=== PATIENT | male | born 1980 | race Caucasian/White ===

== ENCOUNTER → 2017-11-22 07:01 | Outpatient (CLI) | payer BC, SELFPAY ==
--- NOTE | 2017-11-22 10:28 | NEURO_ITS ---
NCS and/or EMG Patient Report Ordering Doctor: Virgilio Cardona DATE OF SERVICE: 11/22/17 This is a bilateral upper extremity nerve conduction study performed on this 37- year-old male with a one-year history of abnormal sensations in both of his hands symmetrically. Patient denies neck pain and is healthy otherwise. Lateral upper extremity sensory and motor nerve conduction study is performed. Median motor distal latencies are prolonged mild to moderately bilaterally with intact amplitudes and conduction velocities. The median sensory distal latencies are also mildly prolonged. The ulnar motor and sensory and radial sensory responses are normal. The median F-wave latencies are mildly prolonged compared to the ulnar F wave latencies. Impression this is an abnormal nerve conduction study of the upper extremities consistent with carpal tunnel syndrome bilaterally, moderate.
== END ==
LOC: PSN 07:04
PROVIDERS: Visit Provider Orthopaedic Surgery
DX: M79.641 Pain in right hand (principal); M79.642 Pain in left hand; R20.8 Other disturbances of skin sensation
CPT/HCPCS: 95911

== ENCOUNTER 2020-11-30 20:15 | Inpatient (IN) | payer SELFPAY ==
[2020-11-30 20:16] VITALS: BP 187/80; PULSE 126; RESP 20; TEMP 36.8; O2SAT 96; BMI 22.9
[2020-11-30] MEDS: diazePAM 5 MG Tablet PO (21:11)
[2020-11-30] MEDS: Ketorolac 60 MG/2 ML Vial IM (21:16)
[2020-11-30 21:24] VITALS: BP 162/107; PULSE 103; RESP 20; TEMP 37.1; O2SAT 98
[2020-11-30 21:25] LABS: Absolute Lymphocyte Count 3.81 X10^3/uL (0.83-4.51); Absolute Neutrophil Count 13.5 X10^3/uL (2.0-7.7); Basophil# 0.06 X10^3/uL; Basophil% 0.3 % (0-1); Eosinophil# 0.01 X10^3/uL; Eosinophils% 0.1 % (0-5); Hematocrit 54.9 % (40-54); Lymphocyte # 3.81 X10^3/ul (0.83-4.51); Mean Corp Hgb Conc 33.5 g/dL (32-36); Mean Corpuscular Hgb 29.7 pg (27.0-32.0); Mean Corpuscular Volume 88.5 fL (80-94); Mean Platelet Vol. 8.5 fl (6.2-12.0); Monocyte# 1.58 X10^3/uL; Monocyte% 8.3 % (0-10); NRBC Flagged by Analyzer 0 % (0-5); Neutrophil # 13.49 X10^3/uL (2.7-7.7); Neutrophil % 70.7 % (47-70); POSITIVE DIFFERENTIAL YES; Platelet Count 568 K/mm3 (150-450); RBC Distribution Width CV 15.5 % (11.6-14.6); RBC Distribution Width SD 49.6 fl (35.1-43.9); White Blood Count 19.1 K/mm3 (4.4-11.0)
[2020-11-30 21:35] LABS: Differential Indicated SCAN CRITERIA MET
[2020-11-30 21:38] LABS: Hemoglobin 18.4 g/dL (13.0-16.5)
[2020-11-30 21:50] LABS: Amphetamine Urine VISTA NEGATIVE (<1000 ng/mL); Barbiturate Urine VISTA NEGATIVE (< 200 ng/mL); Benzodiazepine Urine VISTA NEGATIVE (< 200 ng/mL); Cocaine Urine VISTA NEGATIVE (< 300 ng/mL); Ecstacy Urine VISTA NEGATIVE (< 500 ng/mL); Methadone Urine VISTA NEGATIVE (< 300 ng/mL); PCP Urine VISTA NEGATIVE (< 25 ng/mL); THC Urine VISTA POSITIVE (< 50 ng/mL); Vista UDS pH Range 5
[2020-11-30 21:59] LABS: Differential Comment SCANNED
[2020-11-30 22:02] LABS: International Normalized Ratio 0.9; Prothrombin Time (Protime)PT. 11.6 SECONDS (11.7-14.9)
[2020-11-30 22:19] LABS: AST(SGOT) 19 U/L (15-37); Alanine Aminotransfer ALT/SGPT 49 U/L (16-61); Albumin, Serum 4.2 g/dL (3.2-5.0); Alkaline Phosphatase 111 U/L (45-117); Anion Gap 12 (5-15); BUN 17 mg/dL (7-18); BUN/Creat Ratio 21.4 RATIO (10-20); Calcium,Total 9.3 mg/dL (8.5-10.1); Chloride 104 mmol/L (98-107); EST Glomerular Filtration Rate 115 mL/min (>60); Est Glom Filt Rate - Afr Amer 139 mL/min (>60); Estimated Creatinine Clearance 127.26 ml/min; Globulin 4.2 g/dL (2.2-4.2); Glucose 128 mg/dL (74-106); Potassium 3.5 mmol/L (3.5-5.1); Protein, Total 8.4 g/dL (6.4-8.2); Sodium Level 141 mmol/L (136-145)
[2020-11-30] MEDS: Ondansetron ODT 4 MG Tablet PO (22:28)
--- NOTE | 2020-11-30 22:29 | EDS_ITS ---
HPI History of Present Illness Chief Complaint: Substance Abuse Informant: patient Narrative Narrative: 40-year-old male presents the emergency room asking for detox from alcohol. Patient states that he drinks at least 22 shots of fireball per day. He states that he has been drinking for years due to his sciatica. [facility] Reportedly he was at [facility] recently where they did an MRI but he left the hospital without any paperwork. Mom states it was because he was high on Ativan. Patient states that he wants to quit drinking because it is not good for him. He also would like to have his sciatica addressed while he is in the hospital. He denies any fevers. He notes nausea and some vomiting. Last reported drink was this morning [facility] Medical History (Updated 11/30/20 @ 22:[address] Pio Huff DO) Sciatica Home Medications NK 11/30/20 [History Last Taken Unknown] Allergy/AdvReac Type Severity Reaction Status Date / Time No Known Allergies Allergy Verified 11/30/20 20:18 Social History (Updated 11/30/20 @ 22:[address] Pio Huff DO) Smoking Status: Current every day smoker tobacco type: cigarettes substance use type: does not use ROS ROS ED Constitutional Constitutional ED: Denies chills or weight loss Eyes Eyes: Denies change in vision or diplopia ENT ENT ED: Denies ear pain, rhinorrhea or sore throat Cardiovascular Cardiovascular: Denies chest pain, orthopnea, palpitations or racing heartbeat Respiratory/Chest Respiratory/Chest: Denies cough, dyspnea or orthopnea Gastrointestinal Gastrointestinal: Reports nausea and vomiting; Denies abdominal pain or diarrhea Genitourinary Genitourinary ED: Denies dysuria, hematuria or urinary frequency Musculoskeletal Musculoskeletal: Reports back pain and other Details: Right leg pain ; Denies arthralgias or myalgias Integumentary Denies abscess or rash Neurologic Neurologic: Denies headache(s) or weakness Psychiatric Psychiatric: Denies anxiety, depression, suicidal ideation or suicidal thoughts Endocrine Endocrinology: Denies polydipsia, polyphagia or polyuria Allergic/Immunologic Allergic/Immunologic ED: Denies mouth swelling, tongue swelling or urticaria EXAM Physical Exam Narrative Exam Narrative: Patient states that he is in pain he is rocking back and forth holding his right lower leg at times he will bring the leg up over his left leg almost into a piriformis stretch. Const Vital Signs: 11/30/20 20:16 11/30/20 21:24 Temperature 98.3 F 98.8 F Temperature Source Temporal Temporal Pulse Rate 126 H 103 H Respiratory Rate 20 H 20 H Blood Pressure 187/80 H 162/107 H Blood Pressure Mean 115 125 Blood Pressure Source Monitor Blood Pressure Position Sitting Blood Pressure Location Right Arm Pulse Ox 96 98 Oxygen Delivery Method Room Air Room Air Positive well nourished and well developed General Appearance ED: well developed HEENT Reports normocephalic, head/scalp atraumatic and moist mucous membranes Eyes PERRL and EOMs intact bilaterally Neck no lymphadenopathy, supple and no JVD Resp normal respiratory effort and clear to auscultation bilaterally Cardio regular rate and no murmurs Rate: tachycardic GI normal to inspection, nondistended, normoactive bowel sounds and non-tender Palpation: soft Back/Spine no CVA tenderness and normal ROM Extremity normal to inspection General Extremety ED: Negative for edema General Extremity: Negative for edema Neuro oriented x3 and CN's II-XII intact bilaterally Sensorium / Orientation: alert Motor Exam: strength 5/5 throughout Psych Attitude: agitated Mood & Affect: Negative for depressed or tearful Skin no rashes or lesions noted and no wounds MDM MDM MDM Narrative Medical decision making narrative: Patient's blood alcohol level is 241. White count elevated at 19 but he does not seem to have any infectious symptoms so probably due to withdrawal and reviewed his pain. Patient received a dose of Toradol and Valium. He is also had vomiting so I gave him some Zofran. He is agreeable to the rules of the program. I will speak with her hospitalist. Lab Data Attestation: I reviewed the patient's lab results. Labs: Laboratory Results - last 24 hr 11/30/20 11/30/20 11/30/20 21:17 21:17 21:17 WBC 19.1 H RBC 6.20 Hgb 18.4 H* Hct 54.9 H MCV 88.5 MCH 29.7 MCHC 33.5 RDW Std Deviation 49.6 H RDW Coeff of Mehran 15.5 H Plt Count 568 H MPV 8.5 Immature Gran % (Auto) 0.600 Neut % (Auto) 70.7 H Lymph % (Auto) 20.0 Anderson % (Auto) 8.3 Eos % (Auto) 0.1 Baso % (Auto) 0.3 Absolute Neuts (auto) 13.5 H Absolute Lymphs (auto) 3.81 Nucleated RBC % 0 Differential Comment SCANNED Diff Path Review May foll PT 11.6 L INR 0.9 Sodium 141 Potassium 3.5 Chloride 104 Carbon Dioxide 25.0 Anion Gap 12 BUN 17 Creatinine 0.80 Estim Creat Clear Calc 127.26 Est GFR (MDRD) Af Amer 139 Est GFR (MDRD) Non-Af 115 BUN/Creatinine Ratio 21.4 H Glucose 128 H Calcium 9.3 Total Bilirubin 0.40 AST 19 ALT 49 Alkaline Phosphatase 111 Total Protein 8.4 H Albumin 4.2 Globulin 4.2 Albumin/Globulin Ratio 1.0 Urine Opiates Screen Urine Methadone Screen Ur Barbiturates Screen Ur Phencyclidine Scrn Ur Amphetamines Screen U Methamphetamin-MDMA U Benzodiazepines Scrn Urine Cocaine Screen U Cannabinoids Screen Ur Drug Screen Comment Ethyl Alcohol 11/30/20 11/30/20 21:17 21:17 WBC RBC Hgb Hct MCV MCH MCHC RDW Std Deviation RDW Coeff of Mehran Plt Count MPV Immature Gran % (Auto) Neut % (Auto) Lymph % (Auto) [place] % (Auto) Eos % (Auto) Baso % (Auto) Absolute Neuts (auto) Absolute Lymphs (auto) Nucleated RBC % Differential Comment Diff Path Review PT INR Sodium Potassium Chloride Carbon Dioxide Anion Gap BUN Creatinine Estim Creat Clear Calc Est GFR (MDRD) Af Amer Est GFR (MDRD) Non-Af BUN/Creatinine Ratio Glucose Calcium Total Bilirubin AST ALT Alkaline Phosphatase Total Protein Albumin Globulin Albumin/Globulin Ratio Urine Opiates Screen POSITIVE H Urine Methadone Screen NEGATIVE Ur Barbiturates Screen NEGATIVE Ur Phencyclidine Scrn NEGATIVE Ur Amphetamines Screen NEGATIVE U Methamphetamin-MDMA NEGATIVE U Benzodiazepines Scrn NEGATIVE Urine Cocaine Screen NEGATIVE U Cannabinoids Screen POSITIVE H Ur Drug Screen Comment Ethyl Alcohol 241.0 Discharge Plan Dx/Rx/DC Orders Clinical Impression: Alcohol withdrawal, Sciatica Disposition Disposition: Acute Care Hospital [facility]
--- NOTE | 2020-11-30 22:51 | PCM.HP.STD ---
HPI - General General Date of Admission: 11/30/20 HPI Narrative KERA EASON, is a 40 M who is brought to ER for acute alcohol withdrawal symptoms. Patient is having tremors. He also vomited large amount in ER. Patient drinks 22 shots of fireball, whiskey every single day. Patient also takes hydrocodone 4 tablets daily for sciatica pain. He has chronic lumbar back pain with radiation to right lower extremity to fifth toe. No fever or chills. He was recently at [facility]. They did an MRI but he left the hospital without paperwork. Patient has been drinking heavily since teenage. Denies seizure, hallucinations or delusion. [facility] Medical History Alcohol abuse Anxiety Chronic pain Depression Hypertension Sciatica Smoker Substance abuse Home Medications NK 11/30/20 [History Last Taken Unknown] Allergy/AdvReac Type Severity Reaction Status Date / Time No Known Allergies Allergy Verified 11/30/20 20:18 Social History Smoking Status: Current every day smoker tobacco type: cigarettes substance use type: does not use ROS ROS Narrative Constitutional: Complain of back pain. HEENT: Reports systems reviewed and no addt'l complaints, except as documented Respiratory/Chest: Denies chest pain, shortness of breath at rest or with exertion Gastrointestinal: Vomiting nonbilious in nature. Denies coffee ground emesis, hematemesis or melena Genitourinary: Denies burning urination or new urinary tract symptoms Musculoskeletal: Back pain with radiation to RLE. Reports joint pain at lumbar spine and limited range of motion Neurologic: Denies seizure-like activity skin: No ulcer. No rash Endocrinology: Reports systems reviewed and no addt'l complaints, except as documented Hematologic/Lymphatic: Reports systems reviewed and no addt'l complaints, except as documented Rest 12 ROS are negative except as mentioned in HPI Vital Signs Vital Signs Vital Signs: 11/30/20 20:16 11/30/20 21:24 Temperature 98.3 F 98.8 F Temperature Source Temporal Temporal Pulse Rate 126 H 103 H Respiratory Rate 20 H 20 H Blood Pressure 187/80 H 162/107 H Blood Pressure Mean 115 125 Blood Pressure Source Monitor Blood Pressure Position Sitting Blood Pressure Location Right Arm Pulse Ox 96 98 Oxygen Delivery Method Room Air Room Air Weight Weight: 160 lb Body Mass Index (BMI) 22.9 Physical Exam Narrative General: Restless, oriented. Tremors. Irritable HEENT: Atraumatic, PERRLA, EOMI, Normocephalic Oral: No Gingival or Mucosal Lesions/ Ulcerations Neck: Supple, No JVD, Negative Carotid Bruits Lungs: Air entry equal in bilateral lung bases. No crepitation/rhonchi Cardiovascular: Regular rate, Regular Rhythm, Normal S1, Normal S2, No murmurs Abdomen: Bowel Sounds Present, Soft, Non Tender, Non-Distended : No renal angle tenderness. No suprapubic tenderness. Extremities/spine: Tenderness present over right paralumbar area. No edema, Capillary Refill Less than 3 Seconds Skin: No rashes, No breakdown Musculoskeletal: No Tenderness to Palpation of Joints or Extremities Neurological: Cranial nerves II-XII grossly intact, DTR 2+/4 and Symmetrical, Neuro grossly intact Psych/Mental Status: Normal Affect, Appropriate. Results Lab / Micro Data Result Diagrams: 11/30/20 21:17 11/30/20 21:17 Labs: Laboratory Results - last 24 hr 11/30/20 21:17: WBC 19.1 H, RBC 6.20, Hgb 18.4 H*, Hct 54.9 H, MCV 88.5, MCH 29.7, MCHC 33.5, RDW Std Deviation 49.6 H, RDW Coeff of Mehran 15.5 H, Plt Count 568 H, MPV 8.5, Immature Gran % (Auto) 0.600, Neut % (Auto) 70.7 H, Lymph % (Auto) 20.0, [place] % (Auto) 8.3, Eos % (Auto) 0.1, Baso % (Auto) 0.3, Absolute Neuts (auto) 13.5 H, Absolute Lymphs (auto) 3.81, Nucleated RBC % 0, Differential Comment SCANNED, Diff Path Review August foll 11/30/20 21:17: PT 11.6 L, INR 0.9 11/30/20 21:17: Sodium 141, Potassium 3.5, Chloride 104, Carbon Dioxide 25.0, Anion Gap 12, BUN 17, Creatinine 0.80, Estim Creat Clear Calc 127.26, Est GFR (MDRD) Af Amer 139, Est GFR (MDRD) Non-Af 115, BUN/Creatinine Ratio 21.4 H, Glucose 128 H, Calcium 9.3, Total Bilirubin 0.40, AST 19, ALT 49, Alkaline Phosphatase 111, Total Protein 8.4 H, Albumin 4.2, Globulin 4.2, Albumin/Globulin Ratio 1.0 11/30/20 21:17: Ethyl Alcohol 241.0 11/30/20 21:17: Urine Opiates Screen POSITIVE H, Urine Methadone Screen NEGATIVE, Ur Barbiturates Screen NEGATIVE, Ur Phencyclidine Scrn NEGATIVE, Ur Amphetamines Screen NEGATIVE, U Methamphetamin-MDMA NEGATIVE, U Benzodiazepines Scrn NEGATIVE, Urine Cocaine Screen NEGATIVE, U Cannabinoids Screen POSITIVE H, Ur Drug Screen Comment Assessment & Plan Assessment/Plan (1) Alcohol withdrawal: QUALIFIERS: Complication of substance-induced condition: with delirium Qualified Code(s): F10.231 - Alcohol dependence with withdrawal delirium PLAN: This 40-year-old gentleman being admitted for acute alcohol withdrawal syndrome. 1. Acute alcohol withdrawal syndrome with delirium, hyperactive: Patient is being admitted MedSurg floor. Started on phenobarbital based other supportive medications. Protonix 40 mg p.o. twice daily. CBC with differential shows hemoglobin 18.4, leukocytosis, 19,000, thrombocytosis, 5 68,000. Patient does not have any focus of infection or fever. Repeat CBC tomorrow in. K3.5. Serum magnesium ordered. 40 M EQ oral daily first dose now. 2. Chronic left lumbar spine pain, sciatica in nature: Try to get MRI from [facility]. Pain control. PT ordered. VTE prophylaxis: Low risk. Early embolus encouraged Charges/Coding Visit Charges Inpatient E&M: 99675 Init Hosp L3
[2020-11-30 23:10] VITALS: BP 185/60; PULSE 131; RESP 18; TEMP 36.6; O2SAT 98
[2020-11-30 23:41] VITALS: BMI 28.3
[2020-11-30 23:54] VITALS: BP 187/117; PULSE 110; RESP 24; TEMP 37.1; O2SAT 99
[2020-11-30 23:59] VITALS: BP 187/117; PULSE 110; RESP 24; TEMP 37.1; O2SAT 99
[2020-12-01] MEDS: Lactated Ringers 1,000 ML 125 ML IV (00:10)
[2020-12-01] MEDS: Phenobarbital 32.4 MG Tablet 64.8 MG PO ×6 (00:11→20:06)
[2020-12-01] MEDS: Dicyclomine 10 MG Capsule 20 MG PO (00:11)
[2020-12-01] MEDS: traZODone 100 MG Tablet PO ×2 (00:11→21:56)
[2020-12-01] MEDS: 0.9% Saline Lock 10 ML Syringe IV ×4 (00:12→21:52)
[2020-12-01] MEDS: Gabapentin 300 MG Capsule PO ×3 (00:12→21:56)
[2020-12-01] MEDS: Pantoprazole Sodium 40 MG Tablet PO ×3 (00:42→21:56)
[2020-12-01] MEDS: Ibuprofen 600 MG Tablet PO ×2 (00:42→13:57)
[2020-12-01 01:22] LABS: CPK Total, Creatine Kinase 44 U/L (39-308)
[2020-12-01 03:51] VITALS: BP 175/128; PULSE 110; RESP 18; TEMP 37.4; O2SAT 97
[2020-12-01] MEDS: Acetaminophen 500 MG Tablet PO ×4 (03:55→20:06)
[2020-12-01] MEDS: hydrOXYzine PAM 25 MG Capsule 50 MG PO ×4 (03:56→20:06)
[2020-12-01] MEDS: cloNIDine HCl 0.2 MG Tablet PO ×3 (05:00→21:56)
[2020-12-01 07:48] VITALS: BP 165/95; PULSE 118; RESP 16; TEMP 36.8; O2SAT 93
[2020-12-01] MEDS: Folic Acid 1 MG Tablet PO (07:58)
[2020-12-01] MEDS: Thiamine Hydrochloride 100 MG Tablet PO (07:58)
[2020-12-01 08:01] VITALS: PULSE 117; RESP 16
--- NOTE | 2020-12-01 10:20 | PN.HOSP_ITS ---
Subjective Subjective Patient seen and examined. He complained of severe right lower extremity pain which is neuropathic and from his sciatica. He states this has been going on for a while and that is why he has been drinking so heavily to numb the pain. Review of systems is otherwise negative. He is open to pain management consult for possible pain shot. Objective Data Objective Data Vital Signs: Vital Signs Temp Pulse Resp BP Pulse Ox 98.3 F 117 H 16 165/95 H 93 12/01/20 07:48 12/01/20 08:01 12/01/20 08:01 12/01/20 07:48 12/01/20 07:48 Oxygen Delivery Method Room Air Weight: 197 lb 1.492 oz Body Mass Index (BMI) 28.3 Intake & Output: Intake and Output for Last 24 Hours 11/29/20 11/30/20 12/01/20 23:59 23:59 23:59 Intake Total 200 / 200 Balance 200 / 200 Lab / Micro Data Result Diagrams: 11/30/20 21:17 11/30/20 21:17 Labs: Laboratory Results - last 24 hr 11/30/20 21:17: WBC 19.1 H, RBC 6.20, Hgb 18.4 H*, Hct 54.9 H, MCV 88.5, MCH 29.7, MCHC 33.5, RDW Std Deviation 49.6 H, RDW Coeff of Mehran 15.5 H, Plt Count 568 H, MPV 8.5, Immature Gran % (Auto) 0.600, Neut % (Auto) 70.7 H, Lymph % (Auto) 20.0, [place] % (Auto) 8.3, Eos % (Auto) 0.1, Baso % (Auto) 0.3, Absolute Neuts (auto) 13.5 H, Absolute Lymphs (auto) 3.81, Nucleated RBC % 0, Differential Comment SCANNED, Diff Path Review August11/30/20 21:17: PT 11.6 L, INR 0.9 11/30/20 21:17: Sodium 141, Potassium 3.5, Chloride 104, Carbon Dioxide 25.0, Anion Gap 12, BUN 17, Creatinine 0.80, Estim Creat Clear Calc 127.26, Est GFR (MDRD) Af Amer 139, Est GFR (MDRD) Non-Af 115, BUN/Creatinine Ratio 21.4 H, Glucose 128 H, Calcium 9.3, Total Bilirubin 0.40, AST 19, ALT 49, Alkaline Phosphatase 111, Total Protein 8.4 H, Albumin 4.2, Globulin 4.2, Albumin/Carla bulin Ratio 1.0 11/30/20 21:17: Ethyl Alcohol 241.0 11/30/20 21:17: Urine Opiates Screen POSITIVE H, Urine Methadone Screen NEGATIV E, Ur Barbiturates Screen NEGATIVE, Ur Phencyclidine Scrn NEGATIVE, Ur Amphetamines Screen NEGATIVE, U Methamphetamin-MDMA NEGATIVE, U Benzodiazepines Scrn NEGATIVE, Urine Cocaine Screen NEGATIVE, U Cannabinoids Screen POSITIVE H, Ur Drug Screen Comment 11/30/20 21:17: Magnesium 2.0, Total Creatine Kinase 44 Physical Exam Const alert and oriented x3 Constitutional Narrative: in distress from lower extremity pain Exam Limitations: no limitations HEENT head/scalp atraumatic and moist oral mucous membranes Head and Scalp: normocephalic Eyes PERRL, EOMs intact bilaterally and conjunctivae normal Neck no lymphadenopathy Resp normal respiratory effort, no retractions and no use of accessory muscles Cardio regular rate, regular rhythm, S1 normal heart sound and S2 normal heart sound GI normal to inspection, nondistended, normoactive bowel sounds, soft to palpation, non-tender and non-distended Extremity normal to inspection Peripheral Pulses: Yes pulses 2+ throughout Skin no rashes or lesions noted Neuro oriented x3 and CN's II-XII intact bilaterally Sensorium / Orientation: awake and alert Psych Mood & Affect: anxious Assessment & Plan Assessment/Plan (1) Alcohol withdrawal: QUALIFIERS: Complication of substance-induced condition: with delirium Qualified Code(s): F10.231 - Alcohol dependence with withdrawal delirium (2) Sciatica: PLAN: #Acute alcohol withdrawal * on alcohol withdrawal protocol with phenobarbital * on thiamine, folic acid and multivites * monitor CIWA score * #Severe lower extremity pain due to radiculopathy from sciatica * MRI records requested from [facility] * Luz counseled that the best recourse will be for him to get a pain shot with pain management in light of his history of addiction as I would not be able to discharge him with pain medication. * IV morphine as needed while in the hospital. * DVT prophylaxis: Low risk. Encouraged to ambulate. Charges/Coding Visit Charges Inpatient E&M: 39191 Subs Hosp L3
[2020-12-01] MEDS: Morphine 2 MG/ML Syringe 1 MG IV ×3 (11:21→21:52)
[2020-12-01 15:24] VITALS: BP 135/101; PULSE 105; RESP 16; TEMP 36.7; O2SAT 99
[2020-12-01 15:42] LABS: Pathologist Review Reviewed
--- NOTE | 2020-12-01 15:42 | CASEMGMT ---
Social Work Note Pt is RAMP pt. Pt is also listed as self-pay. SW in to speak with pt. SW introduced self and role at [facility]. Pt confirms that he doesn't currently have insurance. Pt states he applied for Medicaid in July but was told that he makes too much on unemployment. Pt states that he has been on unemployment for over a year. Pt states I am poor. SW provided pt with financial resources including HCAP application, Medicaid Application, [employer], [facility], Rx Assistance resources, and [facility] informatoin. SW informed pt that a therapist will be in tomorrow to meet with pt. Pt states understanding. Pt denied additional needs or concerns at this time. Scarlet Mc SALES CONSULTANT INSURANCE, COPY CAMERA OPERATOR
--- NOTE | 2020-12-01 19:38 | NURSING ---
emergency charting effective now
[2020-12-01 20:04] VITALS: BP 155/111; PULSE 95; RESP 18; TEMP 36.8; O2SAT 96
[2020-12-02 00:27] VITALS: BP 134/104; PULSE 84; RESP 18; TEMP 36.4; O2SAT 97
[2020-12-02] MEDS: Phenobarbital 32.4 MG Tablet 64.8 MG PO ×7 (00:30→23:31)
[2020-12-02] MEDS: Acetaminophen 500 MG Tablet PO ×3 (00:30→19:32)
[2020-12-02] MEDS: hydrOXYzine PAM 25 MG Capsule 50 MG PO ×5 (00:30→19:32)
[2020-12-02] MEDS: Morphine 2 MG/ML Syringe 1 MG IV ×6 (02:29→23:31)
[2020-12-02 04:34] VITALS: BP 129/93; PULSE 82; RESP 18; TEMP 36.3; O2SAT 98
[2020-12-02] MEDS: Ibuprofen 600 MG Tablet PO ×3 (04:36→23:32)
[2020-12-02] MEDS: Haloperidol Lactate 5 MG/ML Vial 4 MG IM (05:41)
[2020-12-02 06:09] LABS: Absolute Lymphocyte Count 2.79 X10^3/uL (0.83-4.51); Absolute Neutrophil Count 6.9 X10^3/uL (2.0-7.7); Basophil# 0.06 X10^3/uL; Basophil% 0.6 % (0-1); Eosinophil# 0.03 X10^3/uL; Eosinophils% 0.3 % (0-5); Hematocrit 46.3 % (40-54); Hemoglobin 15.3 g/dL (13.0-16.5); Lymphocyte # 2.79 X10^3/ul (0.83-4.51); Lymphocyte % 25.6 % (19-41); Mean Corpuscular Hgb 29.7 pg (27.0-32.0); Mean Corpuscular Volume 89.7 fL (80-94); Mean Platelet Vol. 8.5 fl (6.2-12.0); Monocyte# 1.03 X10^3/uL; Monocyte% 9.4 % (0-10); NRBC Flagged by Analyzer 0 % (0-5); Neutrophil # 6.94 X10^3/uL (2.7-7.7); Neutrophil % 63.6 % (47-70); Platelet Count 386 K/mm3 (150-450); RBC Distribution Width CV 14.6 % (11.6-14.6); RBC Distribution Width SD 47.8 fl (35.1-43.9); Red Blood Count 5.16 M/mm3 (4.6-6.2); White Blood Count 10.9 K/mm3 (4.4-11.0)
[2020-12-02 06:39] LABS: Anion Gap 8 (5-15); BUN 25 mg/dL (7-18); BUN/Creat Ratio 36.1 RATIO (10-20); Calcium,Total 8.8 mg/dL (8.5-10.1); Chloride 103 mmol/L (98-107); Creatinine, Serum 0.69 mg/dL (0.70-1.30); EST Glomerular Filtration Rate 135 mL/min (>60); Est Glom Filt Rate - Afr Amer 164 mL/min (>60); Estimated Creatinine Clearance 148.41 ml/min; Glucose 97 mg/dL (74-106); Potassium 4.2 mmol/L (3.5-5.1); Sodium Level 137 mmol/L (136-145)
[2020-12-02] MEDS: Folic Acid 1 MG Tablet PO (06:53)
[2020-12-02] MEDS: 0.9% Saline Lock 10 ML Syringe IV ×6 (06:53→23:34)
[2020-12-02] MEDS: Thiamine Hydrochloride 100 MG Tablet PO (06:53)
[2020-12-02 09:06] VITALS: BP 132/97; PULSE 90; RESP 18; TEMP 36.6; O2SAT 97
[2020-12-02] MEDS: Pantoprazole Sodium 40 MG Tablet PO ×2 (09:09→21:04)
[2020-12-02] MEDS: Gabapentin 300 MG Capsule PO (09:09)
[2020-12-02] MEDS: cloNIDine HCl 0.2 MG Tablet PO ×2 (09:11→21:04)
--- NOTE | 2020-12-02 09:28 | ADDICTION ---
This remote mortgage underwriter met with PT to conduct ASAM, MSE, AUDIT assessments and to plan for d/c. PT A+Ox4 and participated actively. All assessments completed, faxed to [facility] and placed in PT's chart. PT plans to f/u with individual counselor at [facility] for follow-up counseling services. PT did not indicate a need for transportation post d/c from [facility].
--- NOTE | 2020-12-02 10:58 | PCA ---
THIS OFFSHORE DIVER RECIEVED MEDICAL RECORDS FOR PT PUT IN FRONT OF CHART.
--- NOTE | 2020-12-02 10:59 | PN.HOSP_ITS ---
Subjective Subjective Patient seen and examined. He still complains of pain in his left extremity. He is awaiting evaluation by pain management. Review of systems is otherwise negative. Objective Data Objective Data Vital Signs: Vital Signs Temp Pulse Resp BP Pulse Ox 97.8 F 90 18 132/97 H 97 12/02/20 09:06 12/02/20 09:06 12/02/20 09:06 12/02/20 09:06 12/02/20 09:06 Oxygen Delivery Method Room Air Weight: 197 lb 1.492 oz Body Mass Index (BMI) 28.3 Intake & Output: Intake and Output for Last 24 Hours 11/30/20 12/01/20 12/02/20 23:59 23:59 23:59 Intake Total 1600 / 1600 350 / 350 Balance 1600 / 1600 350 / 350 Medical Nutrition Assessment Dietitian: Malnutrition Criteria Met Start: 12/01/20 13:14 Freq: Status: Active Protocol: Document 12/01/20 13:14 LURDES (Rec: 12/01/20 13:14 [id number]) Nutrition Malnutrition Evidence of Malnutrition Exists Yes Malnutrition (moderate): Social/Behavioral/ Environmental Evidenced By Suboptimal Energy Intake ( Moderate),Weight Loss (Severe) Intake Problem Inadequate Oral Intake Etiology related to alcohol detox and nausea Signs/Symptoms as evidenced by 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 Status Active Problem Recommendation Dietitian Recommendations/Changes Will continue regular diet w/ oral nutrition supplement w/ medpass. Lab / Micro Data Result Diagrams: 12/02/20 06:00 12/02/20 06:00 Labs: Laboratory Results - last 24 hr 11/30/20 21:17: Diff Path Review Reviewed 12/02/20 06:00: WBC 10.9, RBC 5.16, Hgb 15.3, Hct 46.3, MCV 89.7, MCH 29.7, MCHC 33.0, RDW Std Deviation 47.8 H, RDW Coeff of Mehran 14.6, Plt Count 386, MPV 8.5, Immature Gran % (Auto) 0.500, Neut % (Auto) 63.6, Lymph % (Auto) 25.6, [place] % (Auto) 9.4, Eos % (Auto) 0.3, Baso % (Auto) 0.6, Absolute Neuts (auto) 6.9, Absolute Lymphs (auto) 2.79, Nucleated RBC % 0 12/02/20 06:00: Sodium 137, Potassium 4.2, Chloride 103, Carbon Dioxide 26.0, Anion Gap 8, BUN 25 H, Creatinine 0.69 L, Estim Creat Clear Calc 148.41, Est GFR (MDRD) Af Amer 164, Est GFR (MDRD) Non-Af 135, BUN/Creatinine Ratio 36.1 H, Glucose 97, Calcium 8.8 Physical Exam Const alert and oriented x3 Constitutional Narrative: in distress from lower extremity pain Exam Limitations: no limitations HEENT head/scalp atraumatic and moist oral mucous membranes Head and Scalp: normocephalic Eyes PERRL, EOMs intact bilaterally and conjunctivae normal Neck no lymphadenopathy Resp normal respiratory effort, no retractions and no use of accessory muscles Cardio regular rate, regular rhythm, S1 normal heart sound and S2 normal heart sound GI normal to inspection, nondistended, normoactive bowel sounds, soft to palpation, non-tender and non-distended Extremity normal to inspection Peripheral Pulses: Yes pulses 2+ throughout Skin no rashes or lesions noted Neuro oriented x3 and CN's II-XII intact bilaterally Sensorium / Orientation: awake and alert Psych Mood & Affect: anxious Assessment & Plan Assessment/Plan (1) Alcohol withdrawal: QUALIFIERS: Complication of substance-induced condition: with delirium Qualified Code(s): F10.231 - Alcohol dependence with withdrawal delirium (2) Sciatica: PLAN: #Acute alcohol withdrawal * on alcohol withdrawal protocol with phenobarbital * on thiamine, folic acid and multivites * monitor CIWA score * #Severe lower extremity pain due to radiculopathy from sciatica * MRI records requested from [facility] * pain management consulted. * IV morphine as needed while in the hospital. * DVT prophylaxis: Low risk. Encouraged to ambulate. Charges/Coding Visit Charges Inpatient E&M: 58406 Subs Hosp L2
--- NOTE | 2020-12-02 12:16 | ADDICTION ---
This senior technical writer met with PT to continue discussing plan for d/c. PT reported same intent for d/c planning noting that he also needs to get this pain under control. This senior technical writer encouraged PT and offered support.
[2020-12-02 15:51] VITALS: BP 122/84; PULSE 82; RESP 18; TEMP 36.9; O2SAT 95
[2020-12-02] MEDS: Ketorolac 30 MG/ML Syringe IV (17:11)
[2020-12-02 21:03] VITALS: BP 139/96; PULSE 88; RESP 18; TEMP 36.4; O2SAT 95
[2020-12-02] MEDS: Gabapentin 600 MG Tablet PO (21:04)
[2020-12-02] MEDS: traZODone 100 MG Tablet PO (21:04)
[2020-12-02] MEDS: tiZANidine HCl 2 MG Tablet 4 MG PO (21:05)
[2020-12-02] MEDS: MethylPREDNISolone DosePak 4 MG BOX PO (21:05)
[2020-12-03] MEDS: Ketorolac 30 MG/ML Syringe IV ×2 (02:17→11:47)
[2020-12-03] MEDS: 0.9% Saline Lock 10 ML Syringe IV ×4 (02:18→11:47)
[2020-12-03] MEDS: hydrOXYzine PAM 25 MG Capsule 50 MG PO ×3 (02:18→11:47)
[2020-12-03] MEDS: Acetaminophen 500 MG Tablet PO ×2 (02:18→06:55)
[2020-12-03 02:21] VITALS: BP 118/94; PULSE 77; RESP 17; TEMP 36.6; O2SAT 98
[2020-12-03] MEDS: Phenobarbital 32.4 MG Tablet 64.8 MG PO ×2 (03:21→06:56)
[2020-12-03] MEDS: Morphine 2 MG/ML Syringe 1 MG IV ×2 (03:25→09:10)
[2020-12-03] MEDS: Gabapentin 600 MG Tablet PO (06:55)
[2020-12-03 08:53] VITALS: BP 104/74; PULSE 95; RESP 18; TEMP 36.4; O2SAT 97
[2020-12-03] MEDS: cloNIDine HCl 0.2 MG Tablet PO (08:59)
[2020-12-03] MEDS: MethylPREDNISolone DosePak 4 MG BOX PO ×2 (08:59→11:50)
[2020-12-03] MEDS: Folic Acid 1 MG Tablet PO (08:59)
[2020-12-03] MEDS: Thiamine Hydrochloride 100 MG Tablet PO (08:59)
[2020-12-03] MEDS: Pantoprazole Sodium 40 MG Tablet PO (09:00)
[2020-12-03] MEDS: tiZANidine HCl 2 MG Tablet 4 MG PO (09:01)
--- NOTE | 2020-12-03 12:13 | DS.PCM_ITS ---
Providers Date of Admission: 11/30/20 Primary Care Physician: Palak Primary Care Phys Consultations 12/01/20 08:13 Consult: Pain Management Routine Consulting Provider: Nisha Muniz Reason for Consult: sciatic pain EMERGENT Consult: No MD Notified: Yes Date Notified: 12/01/20 Time Notified: 10:23 Method of Notification: office Reason For Visit: ACUTE ALCOHOL WITHDRAWAL SYNDROME Diagnosis Discharge Diagnosis (1) Alcohol withdrawal: Status: Acute Code(s): F10.239 - Alcohol dependence with withdrawal, unspecified Qualifiers: Complication of substance-induced condition: with delirium Qualified Code(s): F10.231 - Alcohol dependence with withdrawal delirium (2) Sciatica: Status: Acute Code(s): M54.30 - Sciatica, unspecified side Medications at Discharge Home Medications famotidine 20 mg PO DAILY #30 tab 12/03/20 ibuprofen 400 mg PO Q8H PRN #30 tab 12/03/20 methylprednisolone [Methylpred DP] 4 mg PO UD #21 tab 12/03/20 tizanidine 4 mg PO BID PRN #30 cap 12/03/20 Hospital Course Operations None Procedures None Summary of Care Provided Minutes Spent on Discharge: 40 Hospital Course: Patient is a 40 y/o male with a PMH as outlined who was admitted via the ED on 11/30/2020 with a complaint of acute alcohol withdrawal. He drank about 22 shots of fireball whiskey every day and had been also taking hydrocodone 4 tablets daily for sciatica, with the back pain radiating down to her RLE. He had done MRI at [facility] but didnt know the results of it. He was admitted and managed for acute alcohol withdrawal. He was put on alcohol withdrawal protocol with phenobarbital. Pain management was consulted for sciatica pain. Pain management reviewed him and startedhim on gabapentin, ibuprofen and tizanidine. Patient tolerated 3 day detox process and was discharged home on 12/03/2020. He is to follow up with pain management on outpatient basis. Of note, MRI done at [facility] in June 2020 (07/04/2020) showed circumferential disc bulging with right paracentral disc herniation at L5-S1 causing mass-effect on the right S1 nerve root and a small 1.1 cm cystic lesion within the upper portion of the kidney. Patient was referred to spine surgery to establish care will need further work-up on outpatient basis. Patient seen and examined prior to discharge. He still does complain of some pain in his right lower extremity but has been able to ambulate well. Review of symptoms otherwise negative. Labs and vitals reviewed. Home medication reviewed and reconciled. Physical Exam Const alert, oriented x3 and no apparent distress General Appearance: cooperative and comfortable Exam Limitations: no limitations and altered mental status HEENT normocephalic, head/scalp atraumatic and moist oral mucous membranes Eyes PERRL, EOMs intact bilaterally and conjunctivae normal Neck no lymphadenopathy Resp normal respiratory effort, no retractions and no use of accessory muscles Cardio regular rate, regular rhythm, S1 normal heart sound and S2 normal heart sound GI normal to inspection, nondistended, normoactive bowel sounds, soft to palpation, non-tender and non-distended Extremity normal to inspection Skin no rashes or lesions noted Neuro oriented x3 and CN's II-XII intact bilaterally Sensorium / Orientation: awake and alert Psych Psych Narrative: flat affect Medical Records Data Medical Nutrition Assessment Dietitian: Malnutrition Criteria Met Start: 12/01/20 13:14 Freq: Status: Active Protocol: Document 12/01/20 13:14 [facility] (Rec: 12/01/20 13:14 [facility] [id number]) Nutrition Malnutrition Evidence of Malnutrition Exists Yes Malnutrition (moderate): Social/Behavioral/ Environmental Evidenced By Suboptimal Energy Intake ( Moderate),Weight Loss (Severe) Intake Problem Inadequate Oral Intake Etiology related to alcohol detox and nausea Signs/Symptoms as evidenced by 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 Status Active Problem Recommendation Dietitian Recommendations/Changes Will continue regular diet w/ oral nutrition supplement w/ medpass. Weight / BMI Weight Weight: 197 lb 1.492 oz Body Mass Index (BMI) 28.3 ABG / Lab / Microbiology Data Result Diagrams: 12/02/20 06:00 12/02/20 06:00 D/C Instructions Discharge Diet: No restrictions Discharge Activity: Return to Normal Activity Weight Bearing Status: Weight bearing as tolerated Call your doctor if you observe: Fever of 101 or Higher, Shortness of breath and Increased palpitations (irregular heartbeat) Meaningful Use Info Meaningful Use Diagnoses (Choose all that apply): None applicable Discharge Plan Admission Admit Date/Time: 11/30/20 22:51 Primary Reason for Your Visit: acute alcohol withdrawal Attending Provider: Lorri Ya Primary Care Provider: Care Physician,No Primary Consulting Providers: Nisha Muniz Instructions Patient Instructions: Alcoholism Resources, Alcohol Addiction, Addiction: Getting Help Discharge Orders/Prescriptions Prescriptions: New methylprednisolone [Methylpred DP] 4 mg tablets,dose pack 4 mg PO UD Qty: 21 RF: 0 tizanidine 4 mg capsule 4 mg PO BID PRN (Reason: muscle spasticity) Qty: 30 RF: 0 ibuprofen 400 mg tablet 400 mg PO Q8H PRN (Reason: pain) Qty: 30 RF: 0 famotidine 20 mg tablet 20 mg PO DAILY Qty: 30 RF: 0 Referrals / Follow Up: Nisha Muniz MD [STAFF PHYSICIAN] - Within 2 Weeks Araseli Waterman MD [STAFF PHYSICIAN] - Within 2 Weeks (call to establish PCP care) Stefan Borges DO [STAFF PHYSICIAN] - Within 2 Weeks (call to follow up about back pain and sciatica) Care Physician,No Primary [Primary Care Provider] - Disposition Disposition (needs filled in before D/C Order can be placed): Home, Self Care Charges/Coding Visit Charges Inpatient E&M: [id number] Disch Hosp
--- NOTE | 2020-12-03 12:45 | NURSING ---
1100-THIS NURSE WENT IN TO MEDICATE PT. HE WAS MOANING HIS USUAL. HE WANTED TO KNOW IF WAS GOING TO BE DC'D OR IF WE WOULD GIVE HIM MORE MEDS TO GET HIS PAIN UNDER CONTROL. IF WAS BEING DC'D, HE WANTED TO LEAVE [place], IF NOT, HE WANTED MORE MEDS OR HE WOULD SIGN THAT PAPER AND JUST GO. ILL TAKE CARE OF MY PAIN WHEN I GET HOME. THIS NURSE SAID SHE WAS NOT SURE IF THE DR WAS DC'ING HIM AT THIS TIME OR WAITING TO SEE IF THERE WAS MORE THAT WE WOULD TRY FOR HIS PAIN. I ASKED IF HE WANTED HIS PAIN MEDS OR NOT, IF HE WAS LEAVING I WOULD NOT BE GIVING THEM. YES I WANT THEM, THEY HURT ME. I ASKED WHO HURT HIM, HE REPLIED THERAPY. AGAIN HE REPEATED ATLEAST 3 TIMES BEFORE I EVEN GAVE HIM THE MEDICINE IF HE WAS GOING TO BE DC'D OR HE WOULD SIGN THE PAPERS AND LEAVE. I TOLD HIM I WOULD TEXT THE DR, AND I DID AFTER LEAVING THE ROOM, BUT EVEN IF SHE WAS GOING TO DC HIM, IT COULD BE A WHILE. WELL I WANT OUT OF HERE [place] OR IM SIGNING THE PAPERS AND LEAVING. I TOLD HIM, AGAIN, I WOULD MESSAGE THE DR, I WOULD BE LEAVING THE UNIT FOR A SHORT TIME, IF HE DECIDED TO LEAVE IN THE MEANTIME I WOULD HAVE THE HUMAN RESOURCE ASSISTANT PRINT THE PAPERS FOR HIM.
== END 2020-12-03 13:08 | disposition home or self-care (01) | DRG 897 ==
LOC: ED 22:55 → MS3 12-01 01:19
PROVIDERS: Admitting Provider Internal Medicine; Emergency Provider Emergency Medicine; Visit Provider Student in an Organized Health Care Education/Training Program
DX: F10.231 Alcohol dependence with withdrawal delirium (principal); E44.0 Moderate protein-calorie malnutrition; Y90.8 Blood alcohol level of 240 mg/100 ml or more; M54.41 Lumbago with sciatica, right side; M51.27 Other intervertebral disc displacement, lumbosacral region; G89.29 Other chronic pain; F17.210 Nicotine dependence, cigarettes, uncomplicated; Z68.28 Body mass index [BMI] 28.0-28.9, adult
CPT/HCPCS: 36415; 80048; 80053; 80307; 82077; 82550; 83735; 85025; 85610; 97161; 97802; 99284; 99406; J7120; A4216

== ENCOUNTER 2024-12-30 11:54 | Inpatient (IN) | payer MEDICAID, SELFPAY ==
[2024-12-30] VITALS (7 sets, daily range): BP systolic 129–176; BP diastolic 87–116; PULSE 91–131; RESP 14–18; TEMP 36.6–37.2; O2SAT 95–100; BMI 26.7; BMI 27.0
--- NOTE | 2024-12-30 12:02 | EX.ED.DYSGE1 ---
HPI History of Present Illness Chief Complaint: Substance Abuse Informant: patient Onset/Context/Timing Onset: Today Context: Gradual Onset Timing: Continuous Worsened by: Nothing Relieved by: Nothing Narrative Narrative: Patient presents requesting detox from alcohol. Patient states he drinks approximately 12 shots of liquor per day. Patient states his last drink was approximately 2 hours prior to arrival. Patient has been to detox before. Patient states his last detox was approximately 3 weeks ago in [place]. Patient states he started drinking when he was discharged. Patient denies any fevers or chills. Patient does admit to some nausea and vomiting. Mother states patient fell recently and hit his neck and back on the shower. Patient also admits to a headache. [facility] Medical History (Updated 12/30/24 @ 14:[address] Pierre Oconnell, ) Bipolar 2 disorder Gastric ulcer Substance abuse Alcohol abuse Depression Anxiety Chronic pain Smoker Hypertension Sciatica Home Medications ?Medication ?Instructions ?Recorded ?Last Taken ?Type acamprosate 333 mg tablet,delayed 666 mg PO TID 12/30/24 12/27/24 History release acetaminophen 500 mg tablet 1,000 mg PO BID PRN 12/30/24 12/29/24 History buprenorphine 8 mg-naloxone 2 mg 1 ea sublingual BID 12/30/24 12/29/24 History sublingual film buspirone 15 mg tablet 15 mg PO TID 12/30/24 12/28/24 History docusate sodium 100 mg capsule 100 mg PO BID 12/30/24 Unknown History (Stool Softener) folic acid 1 mg tablet 1 mg PO DAILY 12/30/24 12/28/24 History lansoprazole 15 mg capsule,delayed 15 mg PO DAILY 12/30/24 12/27/24 History release (Acid Furniture Designer (lansoprazole)) loratadine 10 mg tablet 10 mg PO DAILY PRN allergy symptoms 12/30/24 Unknown History multivitamin 1 tab PO DAILY 12/30/24 Unknown History omeprazole 40 mg capsule,delayed 40 mg PO DAILY 12/30/24 12/28/24 History release pantoprazole 40 mg tablet,delayed 40 mg PO BID 12/30/24 12/28/24 History release prazosin 5 mg capsule 10 mg PO QHS NIGHT TERRORS 12/30/24 12/28/24 History quetiapine 50 mg tablet 150 mg PO QHS 12/30/24 12/28/24 History sertraline 50 mg tablet 150 mg PO DAILY 12/30/24 12/28/24 History Allergy/AdvReac Type Severity Reaction Status Date / Time No Known Allergies Allergy Verified 12/30/24 11:56 Surgical History (Updated 12/30/24 @ 12:[address] Pierre Oconnell DO) Hx of heart artery stent History of back surgery Social History Smoking Status: Current every day smoker tobacco type: cigarettes and e-cigarettes substance use type: does not use ROS ROS ED Constitutional Constitutional ED: Denies chills or fever(s) Eyes Eyes: Reports blurry vision; Denies diplopia ENT ENT ED: Denies rhinorrhea or sore throat Cardiovascular Cardiovascular: Denies chest pain or palpitations Respiratory/Chest Respiratory/Chest: Reports dyspnea; Denies cough Gastrointestinal Gastrointestinal: Reports nausea and vomiting Genitourinary Genitourinary ED: Denies dysuria or hematuria Musculoskeletal Musculoskeletal: Reports back pain and neck pain Integumentary Denies abscess or rash Neurologic Neurologic: Reports headache(s); Denies weakness Allergic/Immunologic Allergic/Immunologic ED: Denies mouth swelling or urticaria EXAM Physical Exam Const Vital Signs: 12/30/24 11:54 Temperature 98.2 F Temperature Source Oral Pulse Rate 125 H Respiratory Rate 18 Blood Pressure 142/115 H Blood Pressure Mean 124 Pulse Ox 100 Oxygen Delivery Method Room Air Positive well nourished and well developed Constitutional Narrative: BMI is 26.7. General Appearance ED: well developed and NAD HEENT Reports moist mucous membranes Neck supple and no JVD Resp normal respiratory effort and clear to auscultation bilaterally Cardio regular rhythm Rate: tachycardic GI non-tender and non-distended Palpation: soft Extremity normal to inspection General Extremety ED: Negative for edema or tenderness General Extremity: Negative for edema Neuro oriented x3, CN's II-XII intact bilaterally and no sensory deficits noted Sensorium / Orientation: alert Motor Exam: strength 5/5 throughout Psych mental status grossly normal MDM MDM MDM Narrative Medical decision making narrative: Medical screening labs will be obtained. CBC will be obtained to assess for leukocytosis and anemia. Comprehensive metabolic profile will be obtained to assess for hepatic function, renal function, and electrolyte abnormality. Lipase will be obtained to assess for pancreatitis. Urinalysis will be obtained to assess for urinary tract infection and hematuria. Serum alcohol level will be obtained to assess for alcohol intoxication. Urine drug screen will be obtained to assess for substance abuse. History & Record Review Additional record(s) reviewed:: Prior inpatient record, Prior ED visit and Prior labs Lab Data Attestation: I reviewed the patient's lab results. Lab results narrative: CBC was reviewed. There is a mild anemia with a hemoglobin of 11.4 and hematocrit of 36.4. Comprehensive metabolic profile was reviewed. Potassium is slightly low at 3.0. Alkaline phosphatase is mildly elevated at 214. AST and ALT were within normal limits. Lipase was reviewed and was within normal limits. Serum alcohol level was reviewed and was 297. Labs: Laboratory Results - last 24 hr 12/30/24 12:09 WBC 8.3 RBC 5.15 Hgb 11.4 L Hct 36.4 L MCV 70.7 L MCH 22.1 L MCHC 31.3 L RDW Std Deviation 58.0 H RDW Coeff of Mehran 23.9 H Plt Count 362 MPV 9.2 Immature Gran % (Auto) 0.700 Neut % (Auto) 63.4 Lymph % (Auto) 23.8 Rosebud % (Auto) 10.7 H Eos % (Auto) 0.1 Baso % (Auto) 1.3 H Absolute Neuts (auto) 5.2 Absolute Lymphs (auto) 1.97 Nucleated RBC % 0 Anisocytosis 1+ Sodium 143 Potassium 3.0 L Chloride 97 L Carbon Dioxide 27.1 Anion Gap 19 H BUN 8 Creatinine 0.53 L Estim Creat Clear Calc 185.56 Est GFR (MDRD) Non-Af 128 BUN/Creatinine Ratio 14.4 Glucose 110 H Calcium 8.4 Total Bilirubin 0.36 AST 25 ALT 6 Alkaline Phosphatase 214 H Total Protein 7.1 Albumin 3.3 L Globulin 3.8 Albumin/Globulin Ratio 0.9 Lipase 60 Ethyl Alcohol 297.0 H Treatment and Re-Evaluation :: Patient was advised of his findings. Patient is agreeable for admission for detox. Case was discussed with the hospitalist. She will be in to evaluate the patient and admit the patient to her service. Patient understood and was agreeable with plan. All questions were answered. Discharge Plan Triage Chief Complaint: Substance Abuse ED Provider: Pierre Oconnell Dx/Rx/DC Orders Clinical Impression: Alcohol withdrawal, Alcohol intoxication, Alcohol abuse, Desire for detoxification, Hypertension Prescriptions: No Action omeprazole 40 mg capsule,delayed release(DR/EC) 40 mg PO DAILY docusate sodium [Stool Softener] 100 mg capsule 100 mg PO BID folic acid 1 mg tablet 1 mg PO DAILY sertraline 50 mg tablet 150 mg PO DAILY prazosin 5 mg capsule 10 mg PO QHS pantoprazole 40 mg tablet,delayed release (DR/EC) 40 mg PO BID buprenorphine-naloxone 8-2 mg film 1 ea sublingual BID quetiapine 50 mg tablet 150 mg PO QHS acetaminophen 500 mg tablet 1,000 mg PO BID PRN acamprosate 333 mg tablet,delayed release (DR/EC) 666 mg PO TID loratadine 10 mg tablet 10 mg PO DAILY PRN (Reason: allergy symptoms) buspirone 15 mg tablet 15 mg PO TID multivitamin Tablet 1 tab PO DAILY lansoprazole [Acid Furniture Designer (lansoprazole)] 15 mg capsule,delayed release(DR/EC) 15 mg PO DAILY Primary Care Provider: Care Physician,No Primary Referrals: Care Physician,No Primary [Primary Care Provider] - Print Language: Czech Disposition Disposition: Acute Care Hospital [facility]
[2024-12-30 12:24] LABS: Hematocrit 36.4 % (40-54); Hemoglobin 11.4 g/dL (13.0-16.5); Immature Granulocytes Count 0.060 X10^3/uL (0.0-0.0); Mean Corp Hgb Conc 31.3 g/dL (32-36); Mean Corpuscular Volume 70.7 fL (80-94); Mean Platelet Vol. 9.2 fl (6.2-12.0); NRBC Flagged by Analyzer 0 % (0-5); POSITIVE MORPHOLOGY YES; Platelet Count 362 K/mm3 (150-450); RBC Distribution Width CV 23.9 % (11.6-14.6); RBC Distribution Width SD 58.0 fl (35.1-43.9); Red Blood Count 5.15 M/mm3 (4.6-6.2); White Blood Count 8.3 K/mm3 (4.4-11.0)
[2024-12-30 12:26] LABS: Differential Indicated SCAN CRITERIA MET
--- OUTSIDE RECORDS SUMMARY | 2024-12-30 12:42 | XMS RPT_ITS | CCD ---
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 Name Role Phone LETA HASSAN Unavailable Unavailable PHYSICIAN, NONE Unavailable Unavailable PHYSICIAN, NONE Unavailable Unavailable TIANA, GE W Unavailable Unavailable TIANA, GE W Unavailable Unavailable SABOTANATHALY W Unavailable Unavailable ALMAS HUTCHINS Unavailable Unavailable PHYSICIAN, NONE Unavailable Unavailable ALMAS HUTCHINS Unavailable Unavailable PHYSICIAN, NONE Unavailable Unavailable GERDA SCHULER Unavailable Unavailable PHYSICIAN, NONE Unavailable Unavailable Teddy Sanford Primary Care Provider [phone] Teddy Sanford Primary Care Provider [phone] Juvenal ROSARIO, Teddy Craig Primary Care Provider Juvenal ROSARIO, Teddy Craig Primary Care Provider Teddy Sanford MD Primary Care Provider Kay Kerr Primary Care Provider Ariadne, Ms. Ector Short Attending Leah Ron, Ms. Ector Short Attending Leah BELLO MD, DR BARROW Primary Care Physician Kay Kerr Primary Care Provider PROVIDER, UNKNOWN Attending Unavailable PROVIDER, UNKNOWN Admitting Unavailable GENO DIEGO Attending Unavailable KAY KERR Primary Care Unavailable Kay Kerr MD Primary Care Provider HAI CLARK Referring Unavailable KAY KERR Primary Care Unavailable HAI CLARK Attending Unavailable KAY KERR Primary Care Unavailable [facility] Primary Care Provider Unavailable Primary Care Provider Unavailabl e KAY KERR Primary Care Unavailable ABNER LOCK Admitting Unavailable ABNER LOCK Attending Unavailable KAY KERR Primary Care Unavailable PALLACI, BETSY Anderson Referring Unavailable WELLOCK, RAMESH R Attending Unavailable WEAR, MONTCLAIR Primary Care Unavailable BETSY BLUM Attending Unavailable KENRICK, ALI Attending Unavailable KENRICK, ALI Attending Unavailable WEAR, MONTCLAIR Primary Care Unavailable NAIR, MARQUISE R Referring Unavailable KENRICK, ALI Attending Unavailable KENRICK, ALI Attending Unavailable KENRICK, ALI Attending Unavailable KENRICK, ALI Attending Unavailable WEAR, KAY Primary Care Unavailable KENRICK, ALI Attending Unavailable WEAR, KAY Primary Care Unavailable KENRICK, ALI Attending Unavailable WEAR, KAY Primary Care Unavailable WEAR, KAY Primary Care Unavailable NAIR, MARQUISE R Referring Unavailable WEAR, MONTCLAIR Primary Care Unavailable NAIR, MARQUISE R Referring Unavailable WEAR, M[place]CLA[place] Primary Care Unavailable DEBORAHITESH Referring Unavailable WEAR, [place]CLA[place] Primary Care Unavailable LAURI DIOR Referring Unavailable WEAR, [place]CLA[place] Primary Care Unavailable PALLACI, BETSY Anderson Referring Unavailable WEAR, [place]CLA[place] Primary Care Unavailable PALLACI, BETSY Anderson Referring Unavailable PALLACI, BETSY Anderson Referring Unavailable WEAR, MONTCLAIR Primary Care Unavailable CHELA TENORIO Attending Unavailable WEAR, M[place]CLAIR Primary Care Unavailable CHELA TENORIO Referring Unavailable KENRICK, CATALINO Attending Unavailable WEAR, M[place]CLAIR Primary Care Unavailable RAIZA MCMILLAN Attending Unavailable DARNLEY, ESTEFANI Attending Unavailable WEAR, [place] Primary Care Unavailable KENRICK, CATALINO Attending Unavailable KENRICK, ALI Attending Unavailable WEAR, [place] Primary Care Unavailable KENRICK, ALI Attending Unavailable WEAR, [place] Primary Care Unavailable WEAR, [place] Primary Care Unavailable KENRICK, CATALINO Attending Unavailable KENRICK, CATALINO Attending Unavailable KENRICK, CATALINO Referring Unavailable DARKENYON, ESTEFANI Attending Unavailable WEAR, M[place]CLA[place] Primary Care Unavailable ILEANA TRISTAN Referring Unavailable YOANNA CASTRO Attending Unavailable WEAR, M[place]CLA[place] Primary Care Unavailable DARNLEYESTEFANI Attending Unavailable WEAR, [place] Primary Care Unavailable WEAR, [place] Primary Care Unavailable DEBORAHITESH Referring Unavailable KENRICK, ALI Attending Unavailable WEAR, M[place]CLA[place] Primary Care Unavailable KENRICK, ALI Attending Unavailable WEAR, M[place] Primary Care Unavailable KENRICK, ALI Attending Unavailable KENRICK, ALI Attending Unavailable WEAR, M[place]CLA[place] Primary Care Unavailable KENRICK, ALI Attending Unavailable WEAR, M[place] Primary Care Unavailable KENRICK, ALI Attending Unavailable WEAR, KAY Primary Care Unavailable KENRICK, ALI Attending Unavailable WEAR, KAY Primary Care Unavailable KENRICK, ALI Attending Unavailable WEAR, KAY Primary Care Unavailable KENRICK, CATALINO Attending Unavailable KENRICK, CATALINO Attending Unavailable WEAR, KAY Primary Care Unavailable SALINA PETERS Admitting Unavailable SALINA PETERS Attending Unavailable BETSY MONTALVO Admitting Unavailable ELENA HUBBARD Attending Unavailable ESTEFANI GARCES Consulting Unavailable WEAR, KAY Primary Care Unavailable CRANJOEY, RAIZA Admitting Unavailable RAIZA MCCOLLUM Attending Unavailable WEAR, KAY Primary Care Unavailable LAURI DIOR Referring Unavailable WEAR, KAY Primary Care Unavailable LAURI DIOR Attending Unavailable WING LOPEZ Consulting Unavailable WEAR, KAY Primary Care Unavailable CRANKSHAW, RAIZA Admitting Unavailable ANAM, RAIZA Attending Unavailable ESTEFANI NAVA Consulting Unavailable Allergies Allergy Classification Reported Allergen(s) Allergy Type Date of Onset Reaction(s) Facility NSAIDs (1 source) NSAIDs Drug Allergy 02-26-2019 [facility] (8 sources) NSAIDs Propensity to adverse reactions to drug 02-26-2019 [facility] Work Phone: (20 sources) nickel sulfate; Translations: [NICKEL] Drug Allergy 12-14-2019 [facility] (15 sources) Other; Translations: [OTHER] Propensity to adverse reactions 07-21-2009 [facility] (20 sources) Zinc Drug Allergy 12-23-2023 [facility] (2 sources) nickel Drug Allergy 12-14-2019 [facility] Work Phone: Medications Current Medications Medication Drug Class(es) Dates Sig (Normalized) Sig (Original) acamprosate calcium 333 mg delayed release oral tablet (20 sources) Start: 03-06-2024 End: 03-06-2024 take 666 mg by mouth three times daily 666 mg, Oral, 3 times daily, First dose on Tue03/06/24 at 0900, Do not crush, chew, or split. Start: 02-15-2024 End: 06-20-2025 take 2 tablets by mouth three times daily acamprosate (Campral) 333 MG EC tablet Indications: Alcohol withdrawal syndrome without complication (HCC) Take 2 tablets (666 mg) by mouth 3 times daily. Do not crush, chew, or split. 180 tablet 11 06/20/2024 06/20/2025 Active aluminum hydroxide 40 mg/ml / magnesium hydroxide 40 mg/ml / simethicone 4 mg/ml oral suspension (1 source) Start: 07-03-2020 take 30 mL by mouth every six hours as needed 30 mL, Oral, EVERY 6 HOURS PRN, Indigestion, Starting [facility] 07/03/20 at 2013 amLODIPine 5 mg oral tablet (2 sources) Dihydropyridine Calcium Channel Viry Start: 12-05-2018 take 1 tablet by mouth once daily amLODIPine (NORVASC) 5 mg tablet Take 1 tablet by mouth once daily. 14 tablet 12/05/2018 Active amoxicillin 875 mg / clavulanate 125 mg oral tablet (7 sources) Penicillin-class Antibacterial Start: 04-25-2023 End: 05-02-2023 take 1 tablet by mouth every twelve hours amoxicillin-clavul anate (Augmentin) 875-125 MG tablet Take 1 tablet by mouth in the morning and 1 tablet in the evening. Do all this for 7 days. 14 tablet 0 04/25/2023 05/02/2023 Active Start: 04-25-2023 End: 04-25-2023 amoxicillin-clavulanate (Nov mentin) 875-125 MG per tablet 1 tablet Start: 02-02-2023 End: 02-03-2023 amoxicillin-clavulanate (Nov mentin) 875-125 MG per tablet 1 tablet ascorbic acid 60 mg / beta carotene 5000 unt / copper sulfate 40 mg / dl-alpha tocopheryl acetate 30 unt / sodium selenite 0.04 mg / zinc oxide 40 mg oral tablet (1 source) Vitamin C Start: 07-04-2020 therapeutic multivitamin-minerals 1 tablet bismuth subsalicylate 262 mg oral tablet (2 sources) Bismuth Start: 12-19-2018 take 2 tablets by mouth four times daily Bismuth Subsalicylate (PEPTO-BISMOL) 262 mg tab Take 2 tablets by mouth four times daily. 112 tablet 12/19/2018 Active buprenorphine 8 mg / naloxone 2 mg sublingual film (20 sources) Partial Opioid Agonist, Opioid Antagonist Start: 12-01-2024 End: 01-01-2025 buprenorphine-naloxone (Suboxone) 8-2 MG per sublingual film Indications: Severe opioid use disorder on maintenance therapy (HCC) Place 1 Film under the tongue 2 times daily for 28 days. 56 Film 12/04/2024 01/01/2025 Active Start: 05-27-2024 End: 05-28-2024 3 Film, SubLINGual, Every 4 hours while awake, First dose on 05/28/24 at 0800 Start: 05-27-2024 End: 05-27-2024 1 Film, SubLINGual, Once, On 05/27/24 at 0925, For 1 dose Start: 05-07-2024 End: 10-17-2024 buprenorphine-naloxone (Subo xone) 8-2 MG per sublingual film Indications: Alcohol withdrawal syndrome without complication (HCC) , Severe opioid use disorder on maintenance therapy (HCC) Place 1 Film under the tongue 3 times daily for 28 days. 84 Film 08/30/2024 09/19/2024 Discontinued (Reorder) Start: 03-23-2024 End: 04-30-2024 buprenorphine-naloxone (Subo xone) 8-2 MG per sublingual film Indications: Severe opioid use disorder on maintenance therapy (HCC) Place 1 Film under the tongue 3 times daily for 14 days. 42 Film 04/23/2024 04/30/2024 Discontinued (Reorder) Start: 02-20-2024 End: 03-23-2024 buprenorphine-naloxone (Subo xone) 8-2 MG per sublingual film Indications: Severe opioid use disorder on maintenance therapy (HCC) Place 2.25 Film under the tongue daily for 14 days. 32 Film 03/20/2024 03/23/2024 Discontinued (Dose adjustment) Start: 02-17-2024 End: 02-21-2024 buprenorphine-naloxone (Subo xone) 8-2 MG per sublingual film Indications: Severe opioid use disorder on maintenance therapy (HCC) Place 1 Film under the tongue 2 times daily for 4 days. 8 Film 02/17/2024 02/20/2024 Discontinued (Reorder) busPIRone hydrochloride 15 mg oral tablet (20 sources) Start: 05-27-2024 End: 05-28-2024 take 15 mg by mouth three times daily 15 mg, Oral, 3 times daily, First dose on 05/27/24 at 1640 Start: 02-17-2024 End: 05-30-2025 take 1 tablet by mouth every eight hours busPIRone (Buspar) 15 MG tablet Indications: PTSD (post-traumatic stress disorder) , Generalized anxiety disorder , Alcohol withdrawal syndrome without complication (HCC) Take 1 tablet (15 mg) by mouth every 8 hours. 90 tablet 11 05/30/2024 05/30/2025 Active Start: 02-15-2024 End: 02-18-2024 busPIRone (Buspar) 10 MG tab let Indications: PTSD (post-traumatic stress disorder) Take 1 tablet (10 mg) by mouth in the morning and 1 tablet (10 mg) at noon and 1 tablet (10 mg) before bedtime. Do all this for 3 days. 9 tablet 02/15/2024 02/17/2024 Discontinued (Reorder) Start: 06-06-2020 End: 07-06-2020 take 10 mg by mouth twice daily 10 mg, Oral, 2 TIMES DAILY, First dose on Tue07/04/20 at 0900 celecoxib 200 mg oral capsule (4 sources) Nonsteroidal Anti-inflammatory Drug Start: 06-06-2020 End: 12-28-2020 take 1 capsule by mouth twice daily celecoxib (CELEBREX) 200 MG capsule Take 1 capsule by mouth 2 times daily 60 capsule 0 06/06/2020 12/28/2020 Discontinued (LIST CLEANUP) diclofenac sodium 0.01 mg/mg topical gel (2 sources) Nonsteroidal Anti-inflammatory Drug Start: 09-26-2021 diclofenac sodium (VOLTAREN) 1 % gel 2 g Start: 09-26-2021 diclofenac sod ium (VOLTAREN) 1 % GEL Apply 2 g topically 4 times daily as needed for Pain 0 09/26/2021 Active docusate sodium 100 mg oral capsule (20 sources) Start: 03-06-2024 End: 05-30-2025 take 1 capsule by mouth twice daily Docusate Sodium (DSS) 100 MG capsule Indications: Opioid-induced constipation , Alcohol withdrawal syndrome without complication (HCC) Take 1 capsule (100 mg) by mouth 2 times daily. 60 capsule 11 05/30/2024 05/30/2025 Active dronabinol 2.5 mg oral capsule (2 sources) Cannabinoid Start: 09-26-2021 End: 09-28-2021 take 1 capsule by mouth twice daily dronabinol (MARINOL) 2.5 MG capsule Indications: Nondependent cannabis abuse Take 1 capsule by mouth 2 times daily for 3 doses. 3 capsule 0 09/26/2021 09/28/2021 Active hydroCHLOROthiazide 12.5 mg / losartan potassium 50 mg oral tablet (4 sources) Thiazide Diuretic, Angiotensin 2 Receptor Viry Start: 06-06-2020 End: 12-28-2020 take 1 tablet by mouth once daily losartan-hydroCHLO ROthiazide (HYZAAR) 50-12.5 MG per tablet Take 1 tablet by mouth daily 30 tablet 0 06/06/2020 12/28/2020 Discontinued (LIST CLEANUP) loratadine 10 mg oral tablet (2 sources) Start: 12-11-2024 End: 01-10-2025 take 1 tablet by mouth once daily loratadine (Claritin) 10 MG tablet Take 1 tablet (10 mg) by mouth daily. 30 tablet 12/11/2024 01/10/2025 Active Losartan (2 sources) Angiotensin 2 Receptor Viry Start: 07-05-2020 losartan (COZAAR) tablet 100 mg Start: 07-04-2020 End: 07-04-2020 losartan (COZAAR) tablet 50 mg metoprolol tartrate 50 mg oral tablet (3 sources) beta-Adrenergic Viry Start: 07-04-2020 metopr olol tartrate (LOPRESSOR) tablet 50 mg Start: 07-04-2020 End: 07-04-2020 metoprolol tartrate (LOPRESS OR) tablet 25 mg Start: 09-22-2019 End: 09-22-2019 metoprolol (LOPRESSOR) injec tion 5 mg oxyCODONE hydrochloride 5 mg oral tablet (20 sources) Opioid Agonist Start: 03-06-2024 End: 03-18-2024 take 1 tablet by mouth every six hours as needed for pain oxyCODONE (Roxicodone) 5 MG immediate release tablet Indications: Closed fracture of right hand, sequela , Closed fracture of proximal end of right humerus, unspecified fracture morphology, sequela Take 1 tablet (5 mg) by mouth every 6 hours as needed for moderate pain (4-6) for up to 5 days. 20 tablet 03/13/2024 03/18/2024 Active Start: 03-06-2024 End: 03-06-2024 take 1 tablet by mouth every four hours as needed for pain oxyCODONE (Roxicodone) immediate release tablet 5 mg Start: 02-14-2024 End: 02-19-2024 take 1 tablet by mouth every four hours as needed for pain oxyCODONE (Roxicodone) 5 MG immediate release tablet Take 1 tablet (5 mg) by mouth every 4 hours as needed for moderate pain (4-6) for up to 5 days. 15 tablet 02/14/2024 02/19/2024 Active Start: 02-14-2024 End: 02-14-2024 take 1 tablet by mouth every four hours as needed for pain oxyCODONE (Roxicodone) immediate release tablet 5 mg Start: 07-04-2020 oxyCODONE (PAUL ICODONE) immediate release tablet 10 mg Start: 07-03-2020 End: 07-04-2020 take 2.5 mg by mouth every four hours as needed for pain 2.5 mg, Oral, EVERY 4 HOURS PRN, Pain Severe (7-10), Starting [facility] 07/03/20 at 2021 pantoprazole 40 mg delayed release oral tablet (20 sources) Proton Pump Inhibitor Start: 12-04-2024 End: 01-03-2025 take 1 tablet by mouth twice daily pantoprazole (ProtoNix) 40 MG EC tablet Take 1 tablet (40 mg) by mouth 2 times daily. Do not crush, chew, or split. 60 tablet 12/04/2024 01/03/2025 Active Start: 05-27-2024 End: 05-28-2024 take 40 mg by mouth once daily 40 mg, Oral, Daily, Fir st dose on 05/27/24 at 1640, Do not crush, chew, or split. Start: 04-25-2023 End: 04-24-2024 take 1 tablet by mouth once daily before breakfast pantoprazole (ProtoNix) 40 MG EC tablet Take 1 tablet (40 mg) by mouth every morning (before breakfast). Do not crush, chew, or split. 30 tablet 04/25/2023 02/14/2024 Discontinued (Stop taking at discharge) Start: 01-30-2023 End: 02-03-2023 take 40 mg by mouth once daily in the morning 40 mg, Oral, Every morning, First dose on 01/30/23 at 0900, Do not crush, chew, or split. Start: 06-06-2020 End: 12-28-2020 take 1 tablet by mouth once daily before breakfast pantoprazole (PROTONIX) 40 MG tablet Take 1 tablet by mouth every morning (before breakfast) 30 tablet 0 06/06/2020 12/28/2020 Discontinued (LIST CLEANUP) Start: 01-18-2020 End: 09-19-2022 pantoprazole (ProtoNix) EC t ablet 40 mg Start: 09-22-2019 End: 09-22-2019 pantoprazole (PROTONIX) inje ction 80 mg 1000 ml potassium chloride 0.04 meq/ml / sodium chloride 9 mg/ml injection (1 source) Start: 09-22-2019 Intravenous, a t 150 mL/hr, CONTINUOUS, Starting 09/22/19 at 0930 prazosin 5 mg oral capsule (20 sources) alpha-Adrenergic Viry Start: 05-27-2024 End: 05-28-2024 10 mg, Oral, Nightly, First dose on 05/27/24 at 2100, Ok with seroquel and melatonin. Start: 03-06-2024 End: 03-06-2024 Start: 03-06-2024 End: 03-06-2024 Start: 02-17-2024 End: 08-30-2025 take 2 capsules by mouth once daily prazosin (Minipress) 5 MG capsule Indications: Alcohol withdrawal syndrome without complication (HCC) , PTSD (post-traumatic stress disorder) Take 2 capsules (10 mg) by mouth Nightly. 60 capsule 11 08/30/2024 08/30/2025 Active Start: 02-15-2024 End: 02-18-2024 take 3 capsules by mouth once daily prazosin (Minipress) 2 MG capsule Indications: PTSD (post-traumatic stress disorder) Take 3 capsules (6 mg) by mouth Nightly for 3 days. 9 capsule 02/15/2024 02/17/2024 Discontinued (Reorder) predniSONE 50 mg oral tablet (9 sources) Start: 01-28-2024 End: 02-02-2024 take 1 tablet by mouth once daily predniSONE (Deltasone) 50 MG tablet Take 1 tablet (50 mg) by mouth daily for 5 days. 5 tablet 01/28/2024 02/02/2024 Active Start: 02-02-2023 End: 02-03-2023 predniSONE (Deltasone) table t 60 mg Start: 07-26-2021 End: 07-31-2021 take 1 tablet by mouth once daily predniSONE (DELTASONE) 50 MG tablet Take 1 tablet by mouth daily for 5 days 5 tablet 0 07/26/2021 07/31/2021 Active Start: 07-04-2020 End: 07-04-2020 predniSONE (DELTASONE) table t 50 mg QUEtiapine 50 mg oral tablet (20 sources) Atypical Antipsychotic Start: 05-30-2024 End: 08-30-2025 take 3 tablets by mouth once daily QUEtiapine (SEROquel) 50 MG tablet Indications: Alcohol withdrawal syndrome without complication (HCC) , Generalized anxiety disorder Take 3 tablets (150 mg) by mouth Nightly. 90 tablet 11 08/30/2024 08/30/2025 Active Start: 05-27-2024 End: 05-28-2024 100 mg, Oral, Nightly, First dose on 05/27/24 at 2100, HOLD if sleeping or sedated. OK with melatonin. Start: 03-06-2024 End: 03-06-2024 Start: 03-06-2024 End: 03-06-2024 Start: 02-17-2024 End: 06-08-2024 take 2 tablets by mouth once daily QUEtiapine (SEROquel) 50 MG tablet Indications: Generalized anxiety disorder Take 2 tablets (100 mg) by mouth Nightly. 60 tablet 05/09/2024 05/30/2024 Discontinued (Reorder) sertraline 50 mg oral tablet (20 sources) Serotonin Reuptake Inhibitor Start: 12-29-2024 take 3 tablets by mouth once daily sertraline (Zoloft) 50 MG tablet Indications: PTSD (post-traumatic stress disorder) , Generalized anxiety disorder , Alcohol withdrawal syndrome without complication (HCC) Take 3 tablets (150 mg) by mouth daily. 90 tablet 2 12/29/2024 Active Start: 05-28-2024 End: 05-28-2024 take 150 mg by mouth once daily 150 mg, Oral, Daily, F irst dose on 05/28/24 at 0900 Start: 03-06-2024 End: 03-06-2024 take 150 mg by mouth once daily 150 mg, Oral, Daily, F irst dose on Tue 19/24 at 0900 Start: 03-02-2024 End: 12-29-2024 take 3 tablets by mouth once daily sertraline (Zoloft) 50 MG tablet Indications: PTSD (post-traumatic stress disorder) , Generalized anxiety disorder , Alcohol withdrawal syndrome without complication (HCC) Take 3 tablets (150 mg) by mouth daily. 90 tablet 2 07/30/2024 12/29/2024 Discontinued Start: 02-20-2024 End: 03-21-2024 take 2 tablets by mouth once daily sertraline (Zoloft) 50 MG tablet Indications: PTSD (post-traumatic stress disorder) , Generalized anxiety disorder Take 2 tablets (100 mg) by mouth daily. 60 tablet 02/20/2024 03/02/2024 Discontinued (Reorder) Start: 02-15-2024 End: 03-02-2024 take 1 tablet by mouth once daily sertraline (Zoloft) 50 MG tablet Indications: PTSD (post-traumatic stress disorder) , Generalized anxiety disorder Take 1 tablet (50 mg) by mouth daily for 14 days. 14 tablet 02/17/2024 02/20/2024 Discontinued (Reorder) sodium chloride flush 0.9 % injection 3 mL (4 sources) Start: 04-13-2021 sodium chlorid e flush 0.9 % injection 3 mL Start: 04-05-2020 sodium chlorid e flush 0.9 % injection 3 mL Start: 11-18-2019 sodium chlorid e flush 0.9 % injection 3 mL Start: 09-21-2019 sodium chlorid e flush 0.9 % injection 3 mL sulfamethoxazole 800 mg / trimethoprim 160 mg oral tablet (4 sources) Dihydrofolate Reductase Inhibitor Antibacterial, Sulfonamide Antimicrobial Start: 10-10-2022 End: 10-15-2022 take 1 tablet by mouth twice daily sulfamethoxazole-trimethoprim (Bactrim DS) 800-160 MG tablet Take 1 tablet by mouth 2 times daily for 5 days. 10 tablet 0 10/10/2022 10/15/2022 Active ticagrelor 90 mg oral tablet (20 sources) Start: 09-25-2021 End: 08-20-2023 take 1 tablet by mouth twice daily ticagrelor (Brilinta) 90 MG tablet Take 1 tablet (90 mg) by mouth 2 times daily. 60 tablet 3 04/22/2023 08/20/2023 Active Start: 09-23-2021 ticagrelor (BR ILINTA) tablet 180 mg End: 02-03-2023 Ticagrelor (BRILINTA PO) Aldair e by mouth. 0 02/03/2023 Discontinued Ticagrelor (BRIL INTA PO) Take by mouth. 0 Suspended Ticagrelor (BRIL INTA PO) Take by mouth. 0 Active traZODone hydrochloride 50 mg oral tablet (9 sources) Serotonin Reuptake Inhibitor Start: 09-24-2022 traZODone 50 mg oral tablet Dose : 25 mg = 0.5 tab(s), Oral, qHS, # 15 tab(s), 0 Refill(s) Start Date: 09/24/22 Status: Ordered Start: 09-24-2022 End: 04-24-2023 traZODone (Desyrel) 50 MG ta blet Take 25 mg by mouth. 0 09/24/2022 04/24/2023 Discontinued Start: 08-26-2022 End: 08-27-2022 take 100 mg by mouth once daily 100 mg, Oral, Nightly, First dose on [place] 08/26/22 at 2100 Start: 09-26-2021 take 0.5 tablet by m outh once daily as needed for sleep traZODone (DESYREL) 50 MG tablet Take 0.5 tablets by mouth nightly as needed for Sleep 0 09/26/2021 Active Start: 09-25-2021 traZODone (DORIS YREL) tablet 25 mg Completed/Discontinued Medications Medication Drug Class(es) Dates Sig (Normalized) Sig (Original) Acetaminophen (20 sources) Start: 12-01-2024 End: 12-04-2024 take 1 tablet by mouth every six hours as needed for pain and fever and headache acetaminophen (Tylenol) tablet 650 mg Start: 05-28-2024 End: 05-28-2024 take 1 tablet by mouth every eight hours 1,000 mg, Oral, Every 8 hours, First dose on 05/28/24 at 0000, Maximum dose of acetaminophen is 4000 mg from all sources in 24 hours. Start: 03-06-2024 End: 03-06-2024 take 1 tablet by mouth every eight hours acetaminophen (Tylenol) tablet 1,000 mg Start: 02-14-2024 End: 02-14-2024 take 1 tablet by mouth every eight hours acetaminophen (Tylenol) tablet 1,000 mg Start: 02-13-2024 End: 02-14-2024 1,000 mg, Oral, Once, On 02/14/24 at 0205, For 1 dose, Maximum dose of acetaminophen is 4000 mg from all sources in 24 hours. Start: 02-13-2024 End: 07-04-2025 take 2 tablets by mouth every eight hours as needed for pain acetaminophen (Tylenol Extra Strength) 500 MG tablet Indications: Alcohol withdrawal syndrome without complication (HCC) , Severe opioid use disorder on maintenance therapy (HCC) Take 2 tablets (1,000 mg) by mouth every 8 hours as needed for mild pain (1-3), moderate pain (4-6) or headaches. 90 tablet 11 07/04/2024 07/04/2025 Active Start: 02-12-2024 End: 02-13-2024 take 1 tablet by mouth every eight hours 1,000 mg, Oral, Every 8 hours, First dose on 02/12/24 at 1400, Maximum dose of acetaminophen is 4000 mg from all sources in 24 hours. Start: 02-11-2024 End: 02-12-2024 take 1000 mg intravenously every eight hours 1,000 mg, IntraVENous, at 400 mL/hr, Administer over 15 Minutes, Every 8 hours, First dose on 02/11/24 at 1630, For 9 doses Start: 10-21-2023 End: 10-28-2023 take 2 tablets by mouth three times daily acetaminophen (Tylenol) 500 MG tablet Take 2 tablets (1,000 mg) by mouth 3 times daily for 7 days. 42 tablet 10/21/2023 10/28/2023 Active Start: 04-19-2023 End: 04-22-2023 take 1 tablet by mouth every six hours as needed for pain and fever acetaminophen (Tylenol) tablet 650 mg Start: 04-17-2023 End: 04-17-2023 take 1 tablet by mouth every six hours as needed for pain and fever acetaminophen (Tylenol) tablet 650 mg Start: 09-18-2022 End: 09-19-2022 take 1 tablet by mouth every six hours as needed for pain acetaminophen (Tylenol) tablet 650 mg Start: 09-16-2022 End: 09-16-2022 take 1 tablet by mouth every eight hours acetaminophen (Tylenol) tablet 1,000 mg Start: 04-24-2022 End: 04-24-2022 acetaminophen (Tylenol) tabl et 1,000 mg Start: 09-24-2021 acetaminophen (TYLENOL) tablet 650 mg Start: 07-03-2020 acetaminophen (TYLENOL) tablet 650 mg Start: 07-03-2020 End: 07-03-2020 acetaminophen (TYLENOL) tabl et 1,000 mg Start: 09-22-2019 650 mg, Oral, EVERY 4 HOURS PRN, Pain Mild (1-3), Pain Mild (1-3) or Fever greater than 100.5 F (38 C), Starting 09/22/19 at 0914 Maximum dose of acetaminophen is 4000 mg from all sources in 24 hours. Start: 05-15-2019 End: 05-15-2019 acetaminophen (TYLENOL) tabl et 1,000 mg acetaminophen 325 mg / HYDROcodone bitartrate 5 mg oral tablet (2 sources) Opioid Agonist Start: 07-26-2021 End: 07-26-2021 HYDROcodone-acetaminophen (NORCO) 5-325 MG per tablet 2 tablet Start: 07-26-2021 End: 07-29-2021 HYDROcodone-acetaminophen (N ORCO) 5-325 MG per tablet Indications: Sciatica of right side Take 1 tablet by mouth every 8 hours as needed for Pain for up to 3 days. Intended supply: 3 days. Take lowest dose possible to manage pain 9 tablet 0 07/26/2021 07/29/2021 Active acetaminophen 325 mg / oxyCODONE hydrochloride 5 mg oral tablet (10 sources) Opioid Agonist Start: 01-30-2023 End: 02-03-2023 take 2 tablets by mouth every six hours as needed for pain and pain oxyCODONE-acetaminophen (Percocet) 5-325 MG per tablet 2 tablet Start: 09-26-2021 End: 09-28-2021 take 2 tablets by mouth every six hours as needed for pain, then take 4-10 tablets by mouth every other day as needed for pain oxyCODONE-acetaminophen (PERCOCET) 5-325 MG per tablet Indications: Back pain with sciatica Take 2 tablets by mouth every 6 hours as needed (Pain 4-10 and/or signs of opiate w/drawal) for up to 2 days. 0 09/26/2021 09/28/2021 Active Start: 09-25-2021 oxyCODONE-acet aminophen (PERCOCET) 5-325 MG per tablet 2 tablet Start: 12-28-2020 End: 12-31-2020 oxyCODONE-acetaminophen (PER COCET) 5-325 MG per tablet Indications: Herniation of intervertebral disc between L5 and S1 Take 1 tablet by mouth every 6 hours as needed for Pain for up to 3 days. Intended supply: 3 days. Take lowest dose possible to manage pain 12 tablet 0 12/28/2020 12/31/2020 Active Start: 12-28-2020 End: 12-28-2020 oxyCODONE-acetaminophen (PER COCET) 5-325 MG per tablet 2 tablet Start: 09-21-2019 End: 09-24-2019 take 1 tablet by mouth every six hours as needed for pain 1 tablet, Oral, EVERY 6 HOURS PRN, Pain Moderate (4-6), Pain Severe (7-10), Starting 09/22/19 at 0914 Maximum dose of acetaminophen is 4000 mg from all sources in 24 hours. Start: 09-21-2019 End: 09-21-2019 oxyCODONE-acetaminophen (PER COCET) 5-325 MG per tablet 1 tablet [id number] actuat albuterol 0.09 mg/actuat metered dose inhaler (20 sources) beta2-Adrenergic Agonist Start: 02-12-2024 End: 02-13-2024 take 2 puff(s) by inhalation every four hours as needed for wheezing 2 puff, Inhalation, Every 4 hours PRN, wheezing, Starting on 02/12/24 at 1149 Start: 01-28-2024 End: 03-02-2024 take 2 puff(s) by inhalation every four hours as needed for wheezing albuterol 108 (90 Base) MCG/ACT inhaler Inhale 2 puffs every 4 hours as needed for wheezing. 18 g 01/28/2024 03/02/2024 Discontinued Start: 04-16-2023 End: 04-16-2023 albuterol (2.5 MG/3ML) 0.083 % nebulizer solution 2.5 mg Start: 09-18-2022 End: 09-19-2022 2.5 mg, Nebulization, Every 4 hours while awake, First dose on 09/18/22 at 2200 Initiate RT Bronchodilator Protocol: Start: 09-18-2022 End: 09-19-2022 2.5 mg, Nebulization, Every 2 hour PRN, wheezing, Starting on 09/18/22 at 1955 Initiate RT Bronchodilator Protocol: albuterol 0.833 mg/ml / ipratropium bromide 0.167 mg/ml inhalation solution (20 sources) Anticholinergic, beta2-Adrenergic Agonist Start: 11-30-2024 End: 11-30-2024 3 mL, Nebulization, Once, On Tue11/30/24 at 0200, For 1 dose Start: 11-30-2024 End: 11-30-2024 3 mL, Nebulization, Once, On Tue11/30/24 at 0200, For 1 dose Start: 01-28-2024 End: 01-28-2024 3 mL, Nebulization, Once, On 01/28/24 at 2240, For 1 dose Start: 04-19-2023 End: 04-22-2023 3 mL, Nebulization, 4 times daily PRN, wheezing, Starting on Tue04/19/23 at 1032 Start: 04-17-2023 End: 04-17-2023 ipratropium-albuterol (Duo-N eb) 0.5-2.5 mg/3 mL nebulizer solution 3 mL Start: 02-03-2023 End: 02-03-2023 ipratropium-albuterol (Duo-N eb) 0.5-2.5 mg/3 mL nebulizer solution 3 mL Start: 01-29-2023 End: 02-03-2023 3 mL, Nebulization, Every 4 hours RT, First dose on 01/29/23 at 2200 Start: 01-29-2023 End: 01-29-2023 ipratropium-albuterol (Duo-N eb) 0.5-2.5 mg/3 mL nebulizer solution 6 mL Start: 09-18-2022 End: 09-18-2022 ipratropium-albuterol (Duo-N eb) 0.5-2.5 mg/3 mL nebulizer solution 3 mL Start: 09-16-2022 End: 09-16-2022 ipratropium-albuterol (Duo-N eb) 0.5-2.5 mg/3 mL nebulizer solution 6 mL Start: 09-16-2022 End: 09-16-2022 ipratropium-albuterol (Duo-N eb) 0.5-2.5 mg/3 mL nebulizer solution 6 mL Start: 09-16-2022 End: 09-16-2022 ipratropium-albuterol (Duo-N eb) 0.5-2.5 mg/3 mL nebulizer solution 3 mL ampicillin-sulbactam (Unasyn) 3,000 mg in sodium chloride 0.9 % 100 mL IVPB (Mini-Bag Plus) (2 sources) Start: 09-18-2022 End: 09-19-2022 take 3000 mg intravenously every six hours ampicillin-sulbactam (Unasyn) 3,000 mg in sodium chloride 0.9 % 100 mL IVPB (Mini-Bag Plus) aspirin 81 mg delayed release oral tablet (20 sources) Platelet Aggregation Inhibitor, Nonsteroidal Anti-inflammat ory Drug Start: 04-16-2023 End: 04-16-2023 aspirin chewable tablet 324 mg Start: 09-16-2022 End: 03-02-2024 take 81 mg by mouth once daily 81 mg, Oral, Daily, Fir st dose (after last modification) on Tue04/19/23 at 1035, Do not crush, chew, or split. Start: 08-26-2022 End: 08-27-2022 aspirin chewable tablet 81 m g Start: 09-27-2021 take 1 tablet by naldo th once daily aspirin 81 MG chewable tablet Take 1 tablet by mouth daily 30 tablet 3 09/27/2021 Active Start: 09-24-2021 aspirin chewab le tablet 81 mg Start: 09-23-2021 aspirin chewab le tablet 324 mg take 1 tablet by naldo th in the morning aspirin 81 MG EC tablet Take 81 mg by mouth in the morning. 0 Active atorvastatin 40 mg oral tablet (20 sources) HMG-CoA Reductase Inhibitor Start: 04-23-2023 End: 04-22-2024 take 1 tablet by mouth once daily atorvastatin (Lipitor) 40 MG tablet Take 1 tablet (40 mg) by mouth daily. 30 tablet 11 04/23/2023 02/14/2024 Discontinued (Stop taking at discharge) Start: 04-19-2023 End: 04-22-2023 take 40 mg by mouth once daily 40 mg, Oral, Daily, Fir st dose on Tue04/19/23 at 1035 Start: 09-24-2021 End: 09-24-2021 atorvastatin (LIPITOR) table t 80 mg azithromycin (Zithromax) 500 mg in sodium chloride 0.9 % 250 mL IVPB (ADD-[place]) (5 sources) Start: 04-16-2023 End: 04-17-2023 azithromycin (Zithromax) 500 mg in sodium chloride 0.9 % 250 mL IVPB (ADD-[place]) Start: 01-29-2023 End: 01-29-2023 azithromycin (Zithromax) 500 mg in sodium chloride 0.9 % 250 mL IVPB (ADD-[place]) Start: 09-18-2022 End: 09-18-2022 azithromycin (Zithromax) 500 mg in sodium chloride 0.9 % 250 mL IVPB (ADD-[place]) bacitracin 0.5 unt/mg / polymyxin b 10 unt/mg topical ointment (2 sources) Polymyxin-class Antibacterial Start: 02-12-2024 End: 02-13-2024 apply 1 dose topically twice daily Topical, 2 times daily, First dose on 02/12/24 at 1245 baclofen 10 mg oral tablet (2 sources) gamma-Aminobutyric Acid-ergic Agonist Start: 08-26-2022 End: 08-27-2022 take 10 mg by mouth three times daily 10 mg, Oral, 3 times daily, First dose on [facility] 08/26/22 at 1635 buprenorphine 2 mg sublingual tablet (5 sources) Partial Opioid Agonist Start: 02-15-2024 End: 02-17-2024 buprenorphine (Subtex) 2 MG Indications: Severe opioid use disorder on maintenance therapy (HCC) Place 1 tablet (2 mg) under the tongue every 2 (two) hours for 18 doses. 18 tablet 02/15/2024 02/17/2024 calcium chloride 0.001 meq/ml / glucose 50 mg/ml / potassium chloride 0.004 meq/ml / sodium chloride 0.103 meq/ml / sodium lactate 0.028 meq/ml injectable solution (1 source) Start: 09-22-2019 End: 09-22-2019 dextrose 5 % in lactated ringers bolus calcium chloride 0.0014 meq/ml / potassium chloride 0.004 meq/ml / sodium chloride 0.103 meq/ml / sodium lactate 0.028 meq/ml injectable solution (6 sources) Start: 11-30-2024 End: 11-30-2024 500 mL, IntraVENous, at 250 mL/hr, Administer over 2 Hours, Once, On Tue11/30/24 at 1145, For 1 dose Start: 03-06-2024 End: 03-06-2024 take 100 mL intravenously every hour 100 mL/hr, IntraVENous, Continuous, Starting on Tue03/06/24 at 0820 Start: 09-24-2021 End: 09-24-2021 lactated ringers bolus Start: 09-22-2019 End: 09-22-2019 lactated ringers bolus calcium gluconate 1000 mg in 100 mL IVPB premix (2 sources) Start: 09-19-2022 End: 09-19-2022 calcium gluconate 1000 mg in 100 mL IVPB premix carvedilol 6.25 mg oral tablet (20 sources) alpha-Adrenergi c Viry, beta-Adrenergic Viry Start: 04-19-2023 End: 02-14-2024 take 1 tablet by mouth in the morning carvedilol (Coreg) 6.25 MG tablet Take 1 tablet (6.25 mg) by mouth in the morning and 1 tablet (6.25 mg) in the evening. Take with meals. 60 tablet 3 04/22/2023 02/14/2024 Discontinued (Stop taking at discharge) Start: 04-17-2023 End: 04-17-2023 take 6.25 mg by mouth twice daily at mealtime 6.25 mg, Oral, 2 times daily with meals, First dose on 04/17/23 at 0800 Start: 01-14-2022 End: 04-22-2023 carvedilol (Coreg) 12.5 MG t ablet Start: 09-27-2021 take 1 tablet by naldo twice daily at mealtime carvedilol (COREG) 12.5 MG tablet Take 1 tablet by mouth 2 times daily (with meals) 60 tablet 3 09/27/2021 Active Start: 09-24-2021 carvedilol (CO REG) tablet 12.5 mg Start: 09-24-2021 End: 09-24-2021 carvedilol (COREG) tablet 6. 25 mg cefTRIAXone (ROCEPHIN) 1 g I VPB in NS 50ml minibag (1 source) Start: 09-22-2019 End: 09-22-2019 cefTRIAXone (ROCEPHIN) 1 g I VPB in NS 50ml minibag cefTRIAXone (Rocephin) 1,000 mg in sodium chloride 0.9 % 50 mL IVPB Mini-Bag Plus (8 sources) Start: 04-19-2023 End: 04-19-2023 cefTRIAXone (Rocephin) 1,000 mg in sodium chloride 0.9 % 50 mL IVPB Mini-Bag Plus Start: 04-16-2023 End: 04-16-2023 cefTRIAXone (Rocephin) 1,000 mg in sodium chloride 0.9 % 50 mL IVPB Mini-Bag Plus Start: 01-29-2023 End: 01-29-2023 cefTRIAXone (Rocephin) 1,000 mg in sodium chloride 0.9 % 50 mL IVPB Mini-Bag Plus Start: 09-18-2022 End: 09-18-2022 cefTRIAXone (Rocephin) 1,000 mg in sodium chloride 0.9 % 50 mL IVPB Mini-Bag Plus Start: 09-16-2022 End: 09-16-2022 cefTRIAXone (Rocephin) 1,000 mg in sodium chloride 0.9 % 50 mL IVPB Mini-Bag Plus cefTRIAXone (Rocephin) 2,000 mg in sodium chloride 0.9 % 50 mL IVPB Mini-Bag Plus (3 sources) Start: 01-31-2023 End: 02-02-2023 cefTRIAXone (Rocephin) 2,000 mg in sodium chloride 0.9 % 50 mL IVPB Mini-Bag Plus Start: 09-16-2022 End: 09-16-2022 cefTRIAXone (Rocephin) 2,000 mg in sodium chloride 0.9 % 50 mL IVPB Mini-Bag Plus chlordiazePOXIDE hydrochloride 5 mg oral capsule (20 sources) Benzodiazepine Start: 05-30-2024 End: 06-06-2024 take 1 capsule by mouth every six hours chlordiazePOXIDE (Librium) 10 MG capsule Indications: Alcohol withdrawal syndrome without complication (HCC) Take 1 capsule (10 mg) by mouth every 6 hours for 4 doses. 4 capsule 05/30/2024 06/06/2024 Discontinued (Therapy completed) Start: 05-30-2024 End: 06-06-2024 take 1 capsule by mouth every six hours chlordiazePOXIDE (Librium) 25 MG capsule Indications: Alcohol withdrawal syndrome without complication (HCC) Take 1 capsule (25 mg) by mouth every 6 hours for 4 doses. 4 capsule 05/30/2024 06/06/2024 Discontinued (Therapy completed) Start: 05-30-2024 End: 06-06-2024 take 1 capsule by mouth every six hours chlordiazePOXIDE (Librium) 5 MG capsule Indications: Alcohol withdrawal syndrome without complication (HCC) Take 1 capsule (5 mg) by mouth every 6 hours for 4 doses. 4 capsule 05/30/2024 06/06/2024 Discontinued (Therapy completed) Start: 02-08-2024 End: 03-09-2024 chlordiazePOXIDE (Librium) 2 5 MG capsule Indications: Alcoholic intoxication without complication (CMS/HCC) (HCC) Take 1 capsule (25 mg) by mouth as needed for withdrawal. 30 capsule 02/08/2024 02/20/2024 Discontinued (Therapy completed) Start: 04-22-2023 End: 04-22-2023 take 1 capsule by mouth every eight hours chlordiazePOXIDE (Librium) capsule 5 mg Start: 04-21-2023 End: 04-22-2023 take 1 capsule by mouth every six hours chlordiazePOXIDE (Librium) capsule 5 mg Start: 04-20-2023 End: 04-21-2023 take 1 capsule by mouth every six hours chlordiazePOXIDE (Librium) capsule 10 mg clonazePAM 0.25 mg disintegrating oral tablet (20 sources) Benzodiazepine Start: 06-20-2024 End: 12-04-2024 take 1 tablet by mouth three times daily as needed for anxiety clonazePAM (KlonoPIN) 0.25 MG disintegrating tablet Indications: Panic disorder Take 1 tablet (0.25 mg) by mouth 3 times daily as needed for anxiety for up to 28 days. 84 tablet 09/19/2024 12/04/2024 Discontinued (Stop taking at discharge) Start: 06-07-2024 End: 06-20-2024 take 1 tablet by mouth twice daily as needed for anxiety clonazePAM (KlonoPIN) 0.25 MG disintegrating tablet Indications: Generalized anxiety disorder with panic attacks Take 1 tablet (0.25 mg) by mouth 2 times daily as needed for anxiety for up to 14 days. 28 tablet 06/07/2024 06/20/2024 Discontinued (Reorder) cloNIDine hydrochloride 0.1 mg oral tablet (2 sources) Central alpha-2 Adrenergic Agonist Start: 08-26-2022 End: 08-27-2022 take 1 tablet by mouth every eight hours 0.1 mg, Oral, Every 8 hours, First dose on Stacy 08/26/22 at 1635 Hold for a systolic bp og 90 or below cyclobenzaprine hydrochloride 10 mg oral tablet (9 sources) Muscle Relaxant Start: 08-06-2022 End: 08-06-2022 cyclobenzaprine (Flexeril) tablet 10 mg Start: 04-24-2022 End: 04-24-2022 cyclobenzaprine (Flexeril) t ablet 10 mg Start: 07-26-2021 End: 07-26-2021 cyclobenzaprine (FLEXERIL) t ablet 10 mg Start: 07-26-2021 End: 08-05-2021 take 1 tablet by mouth twice daily as needed for muscle spasms cyclobenzaprine (FLEXERIL) 5 MG tablet Take 1 tablet by mouth 2 times daily as needed for Muscle spasms 10 tablet 0 07/26/2021 08/05/2021 Active Start: 11-25-2020 End: 12-05-2020 take 1 tablet by mouth three times daily as needed for muscle spasms cyclobenzaprine (FLEXERIL) 10 MG tablet Take 1 tablet by mouth 3 times daily as needed for Muscle spasms 21 tablet 0 11/25/2020 12/05/2020 Active Start: 07-04-2020 cyclobenzaprin e (FLEXERIL) tablet 10 mg Start: 06-25-2019 End: 06-29-2019 cyclobenzaprine (FLEXERIL) t ablet 10 mg 1 ml dexamethasone phosphate 4 mg/ml injection (8 sources) Corticosteroid Start: 08-10-2024 End: 08-10-2024 inject 4 mg by intramuscular injection once 4 mg, IntraMUSCular, Once, On Tue08/10/24 at 1015, For 1 dose Start: 09-24-2022 End: 09-29-2022 dexAMETHasone 2 mg oral tabl et Dose : 2 mg = 1 tab(s), Oral, BID, X 5 day(s), # 10 tab(s), 0 Refill(s), 09/29/22 23:52:00 EDT, Lumbar radiculopathy Closed fracture of third metatarsal bone of right foot Start Date: 09/24/22 Stop Date: 09/29/22 Status: Ordered Start: 07-26-2021 End: 07-26-2021 dexamethasone (PF) (DECADRON ) injection 8 mg Start: 02-16-2021 End: 02-16-2021 dexamethasone (PF) (DECADRON ) injection 8 mg Start: 12-28-2020 End: 12-28-2020 dexamethasone (PF) (DECADRON ) injection 10 mg Start: 11-29-2020 End: 11-29-2020 dexamethasone (PF) (DECADRON ) injection 8 mg Start: 07-04-2020 dexamethasone (DECADRON) tablet 4 mg 100 ml dexmedetomidine 0.004 mg/ml injection (7 sources) Central alpha-2 Adrenergic Agonist Start: 02-11-2024 End: 02-12-2024 0.1-1.5 mcg/kg/hr 70.5 kg (1.7625-26.4375 mL/hr, rounded to 1.76-26.44 mL/hr), IntraVENous, Continuous, Starting on 02/11/24 at 2245, If Titrate Infusion? is No: Disregard instructions below. If Titrate infusion? is Yes: Titrate in increments of 0.2 mcg/kg/hr no more frequently than every 30 minutes to goal of therapy. If after titration rate change patient exhibits adverse hemodynamic response, next titration rate change may be adjusted by one-half of the previous rate change. If patient fails sedation interruption, resume dexmedetomidine infusion at 50% of previous rate., Titrate Infusion? Yes, Initial Infusion Dose: 0.2 mcg/kg/hr, Goal of Therapy: RASS 0 to -1, Contact Provider if: New onset HR less than 50 bpm, New onset SBP less than 90 mmHg, Patient is receiving maximum dose and is not achieving the goal of therapy Start: 01-30-2023 End: 02-02-2023 dexmedeTOMIDine in NS (Prece dex) 400 mcg in 100 mL (4 mcg/mL) infusion Start: 09-16-2022 End: 09-16-2022 dexmedeTOMIDine in NS (Prece dex) 400 mcg in 100 mL (4 mcg/mL) infusion diazePAM 5 mg oral tablet (2 sources) Benzodiazepine Start: 11-30-2024 End: 11-30-2024 take 10 mg by mouth once 10 mg, Oral, Once, On Tue11/30/24 at 0325, For 1 dose dicyclomine hydrochloride 20 mg oral tablet (5 sources) Anticholinergic Start: 08-26-2022 End: 08-27-2022 take 10 mg by mouth three times daily as needed 10 mg, Oral, 3 times daily PRN, colic, Starting on St[facility] 08/26/22 at 1630 Start: 04-13-2021 End: 09-26-2021 take 1 tablet by mouth four times daily dicyclomine (BENTYL) 20 MG tablet Take 1 tablet by mouth 4 times daily 15 tablet 0 04/13/2021 09/26/2021 Discontinued (Stop Taking at Discharge) diphenhydrAMINE hydrochloride 25 mg oral tablet (5 sources) Histamine-1 Receptor Antagonist Start: 08-10-2024 End: 08-10-2024 take 25 mg by mouth once 25 mg, Oral, Once, On Tue08/10/24 at 1015, For 1 dose Start: 02-08-2024 End: 02-08-2024 25 mg, IntraVENous, Once, On Tue02/08/24 at 0505, For 1 dose Start: 11-18-2019 End: 11-18-2019 diphenhydrAMINE (BENADRYL) i njection 25 mg docusate sodium 50 mg / sennosides, group home 8.6 mg oral tablet (5 sources) Start: 05-27-2024 End: 05-28-2024 2 tablet, Oral, 2 times mickie y PRN, constipation, Starting on Tue05/27/24 at 1634, If using BID for more than 1 day please let this provider know. He has a history of opioid induced constipation. Start: 02-02-2023 End: 02-03-2023 senna-docusate sodium (Senok ot-S) 8.6-50 MG tablet 2 tablet Start: 08-26-2022 End: 08-27-2022 take 2 tablets by mouth every twenty-four hours as needed for constipation 2 tablet, Oral, Daily PRN, constipation, Starting on [facility] 08/26/22 at 1630 doxycycline monohydrate 100 mg oral capsule (3 sources) Tetracycline-class Drug Start: 04-20-2023 End: 04-20-2023 doxycycline (Monodox) capsule 100 mg Start: 09-19-2022 End: 09-19-2022 doxycycline (Monodox) capsul e 100 mg doxycycline (Vibramycin) 100 mg in sodium chloride 0.9 % 100 mL IVPB (5 sources) Start: 04-19-2023 End: 04-20-2023 take 100 mg intravenously every twelve hours doxycycline (Vibramycin) 100 mg in sodium chloride 0.9 % 100 mL IVPB Start: 09-16-2022 End: 09-16-2022 take 100 mg intravenously every twelve hours doxycycline (Vibramycin) 100 mg in sodium chloride 0.9 % 100 mL IVPB Start: 09-16-2022 End: 09-16-2022 take 100 mg intravenously every twelve hours doxycycline (Vibramycin) 100 mg in sodium chloride 0.9 % 100 mL IVPB 0.4 ml enoxaparin sodium 100 mg/ml prefilled syringe (11 sources) Low Molecular Weight Heparin Start: 04-19-2023 End: 04-22-2023 inject 40 mg by subcutaneous injection every twenty-four hours 40 mg, SubCUTAneous, Every 24 hours scheduled (Daily), First dose (after last modification) on Tue04/19/23 at 1035, Indication of Use: Prophylaxis-DVT/PE, Indications: Prophylaxis of Venous Thromboembolism Start: 04-17-2023 End: 04-17-2023 enoxaparin (Lovenox) syringe 40 mg Start: 01-30-2023 End: 02-03-2023 inject 40 mg by subcutaneous injection every twenty-four hours 40 mg, SubCUTAneous, Every 24 hours, First dose on Tue01/30/23 at 0900, Indication of Use: Prophylaxis-DVT/PE, Indications: Prophylaxis of Venous Thromboembolism Start: 09-18-2022 End: 09-19-2022 inject 40 mg by subcutaneous injection every twenty-four hours 40 mg, SubCUTAneous, Every 24 hours scheduled (Daily), First dose on 09/18/22 at 2000 Indication of Use: Prophylaxis-DVT/PE Indications: Prophylaxis of Venous Thromboembolism Start: 09-16-2022 End: 09-16-2022 inject 40 mg by subcutaneous injection every twenty-four hours 40 mg, SubCUTAneous, Every 24 hours scheduled (Daily), First dose on Stacy 09/16/22 at 1200 Indication of Use: Prophylaxis-DVT/PE Indications: Prophylaxis of Venous Thromboembolism Start: 09-25-2021 End: 09-26-2021 enoxaparin (LOVENOX) injecti on 40 mg Start: 07-04-2020 inject 40 mg by subc utaneous injection once daily 40 mg, Subcutaneous, DAILY, First dose on Tue07/04/20 at 0900 Start: 09-22-2019 inject 40 mg by subc utaneous injection once daily 40 mg, Subcutaneous, DAILY, First dose on 09/22/19 at 0930 famotidine 20 mg oral tablet (4 sources) Histamine-2 Receptor Antagonist Start: 04-19-2023 End: 04-22-2023 take 20 mg by mouth twice daily 20 mg, Oral, 2 times daily, First dose (after last modification) on Tue04/19/23 at 1035 Start: 04-17-2023 End: 04-17-2023 famotidine (Pepcid) tablet 2 0 mg Start: 12-28-2020 End: 12-28-2020 famotidine (PEPCID) tablet 2 0 mg FLUoxetine 20 mg oral capsule (2 sources) Serotonin Reuptake Inhibitor Start: 12-02-2024 End: 12-04-2024 take 20 mg by mouth once daily 20 mg, Oral, Daily, First dose on Tue12/02/24 at 1100 folic acid 1 mg oral tablet (20 sources) Start: 03-06-2024 End: 03-07-2025 take 1 mg by mouth once daily 1 mg, Oral, Daily, First dose on Tue11/30/24 at 0900 Start: 04-19-2023 End: 04-22-2023 take 1 mg by mouth once daily 1 mg, Oral, Daily, First dose (after last modification) on Tue04/19/23 at 1035 Start: 04-17-2023 End: 04-17-2023 folic acid (Folvite) tablet 1 mg Start: 09-18-2022 End: 09-19-2022 folic acid (Folvite) tablet 1 mg Start: 08-26-2022 End: 08-27-2022 take 1 mg by mouth once daily 1 mg, Oral, Daily, First dose on Tue08/26/22 at 1635 Start: 07-04-2020 folic acid (FO LVITE) tablet 1 mg folic acid 1 mg in dextrose 5 % 50 mL IVPB (4 sources) Start: 12-01-2024 End: 12-04-2024 1 mg, IntraVENous, at 100 mL /hr, Administer over 30 Minutes, Daily, First dose on Tue12/01/24 at 0900 Start: 09-16-2022 End: 09-16-2022 1 mg, IntraVENous, at 100 mL /hr, Administer over 30 Minutes, Once, On Tue09/16/22 at 1200, For 1 dose folic acid 1 mg in sodium chloride 0.9 % 50 mL IVPB (2 sources) Start: 02-13-2024 End: 02-13-2024 1 mg, IntraVENous, at 100 mL/hr, Administer over 30 Minutes, Daily, First dose (after last modification) on Tue02/13/24 at 0600, For 2 doses folic acid 2 mg in dextrose 5 % 50 mL IVPB (1 source) Start: 01-30-2023 End: 01-30-2023 folic acid 2 mg in dextrose 5 % 50 mL IVPB 60 actuat formoterol fumarate 0.005 mg/actuat / mometasone furoate 0.1 mg/actuat metered dose inhaler (3 sources) Corticosteroid, beta2-Adrenergi c Agonist Start: 04-19-2023 End: 04-22-2023 take 2 puff(s) by mouth twice daily 2 puff, Inhalation, 2 times daily, First dose (after last modification) on Tue04/19/23 at 1035, Rinse mouth with water after use to reduce aftertaste and incidence of candidiasis. Do not swallow. Start: 04-17-2023 End: 04-17-2023 mometasone-formoterol (Duler a 100) 100-5 MCG/ACT inhaler 2 puff 4 ml furosemide 10 mg/ml injection (2 sources) Loop Diuretic Start: 02-02-2023 End: 02-02-2023 furosemide (Lasix) injection 40 mg Start: 01-30-2023 End: 01-30-2023 furosemide (Lasix) injection 40 mg gabapentin 300 mg oral capsule (13 sources) Anti-epileptic Agent Start: 01-25-2023 End: 04-24-2023 gabapentin (Neurontin) 300 MG capsule Start: 08-26-2022 End: 08-27-2022 take 1 capsule by mouth every eight hours 300 mg, Oral, Every 8 hours, First dose on Stacy 08/26/22 at 1635 Hold for excessive sedation Start: 03-02-2021 gabapentin (NE URONTIN) 300 MG capsule Start: 07-04-2020 gabapentin (NE URONTIN) capsule 300 mg Start: 07-04-2020 End: 07-04-2020 gabapentin (NEURONTIN) capsu le 100 mg 1 ml haloperidol 5 mg/ml prefilled syringe (9 sources) Typical Antipsychotic Start: 11-29-2024 End: 11-29-2024 5 mg, IntraMUSCular, Once, On Stacy 11/29/24 at 2035, For 1 dose, IM route of administration preferred. Because of the risk of TdP and QT prolongation, ECG monitoring is recommended if haloperidol is given IV Start: 02-08-2024 End: 02-08-2024 2.5 mg, IntraVENous, Once, O n 02/08/24 at 0505, For 1 dose, IM route of administration preferred. Because of the risk of TdP and QT prolongation, ECG monitoring is recommended if haloperidol is given IV Start: 01-30-2023 End: 01-30-2023 haloperidol lactate (Haldol) injection 5 mg Start: 09-18-2022 End: 09-18-2022 haloperidol lactate (Haldol) injection 2 mg Start: 09-26-2021 haloperidol la ctate (HALDOL) 5 MG/ML injection Inject 1 mL into the muscle every 6 hours as needed for Agitation 2 mL 0 09/26/2021 Active Start: 09-25-2021 haloperidol la ctate (HALDOL) injection 5 mg 1 ml heparin sodium, porcine 1000 unt/ml injection (1 source) Unfractionated Heparin, Anti-coagulant Start: 09-23-2021 End: 09-23-2021 heparin (porcine) injection 5,000 Units 1 ml hydrALAZINE hydrochloride 20 mg/ml injection (8 sources) Arteriolar Vasodilator Start: 03-06-2024 End: 03-06-2024 take 10 mg intravenously every four hours as needed for hypertension 10 mg, IntraVENous, Every 4 hours PRN, high blood pressure, SBP>160, Starting on Tu03/06/24 at 0633 Start: 02-11-2024 End: 02-13-2024 10 mg, IntraVENous, Every 3 hours PRN, high blood pressure, Second line, give for blood pressure greater than 140 hold for heart greater than 100 bpm, Starting on 02/11/24 at 1921 Start: 02-11-2024 End: 02-11-2024 take 10 mg intravenously every four hours as needed for hypertension 10 mg, IntraVENous, Every 4 hours PRN, high blood pressure, Second line, give for blood pressure greater than 140 hold for heart greater than 100 bpm, Starting on 02/11/24 at 1534 Start: 07-04-2020 hydrALAZINE (A PRESOLINE) injection 10 mg Start: 07-04-2020 End: 07-04-2020 hydrALAZINE (APRESOLINE) tab let 10 mg 1 ml HYDROmorphone hydrochloride 1 mg/ml cartridge (12 sources) Opioid Agonist Start: 08-26-2022 End: 08-26-2022 HYDROmorphone (Dilaudid) injection 1 mg Start: 04-13-2021 End: 04-13-2021 HYDROmorphone (DILAUDID) inj ection 1 mg Start: 02-16-2021 End: 02-16-2021 HYDROmorphone (DILAUDID) inj ection 1 mg Start: 11-29-2020 End: 11-29-2020 HYDROmorphone (DILAUDID) inj ection 1 mg Start: 07-03-2020 End: 07-03-2020 HYDROmorphone (DILAUDID) inj ection 0.5 mg Start: 07-03-2020 End: 07-03-2020 HYDROmorphone (DILAUDID) inj ection 1 mg Start: 07-03-2020 End: 07-03-2020 HYDROmorphone (DILAUDID) inj ection 1 mg Start: 11-18-2019 End: 11-18-2019 HYDROmorphone (DILAUDID) inj ection 1 mg Start: 09-22-2019 End: 09-22-2019 HYDROmorphone (DILAUDID) inj ection 0.5 mg HYDROmorphone (Dilaudid) injection 0.25 mg (4 sources) Start: 03-06-2024 End: 03-06-2024 HYDROmorphone (Dilaudid) injection 0.25 mg Start: 02-14-2024 End: 02-14-2024 HYDROmorphone (Dilaudid) inj ection 0.25 mg hydrOXYzine pamoate 25 mg oral capsule (8 sources) Antihistamine Start: 04-25-2023 End: 04-25-2023 hydrOXYzine pamoate (Vistaril) capsule 25 mg Start: 02-03-2023 End: 04-24-2023 hydrOXYzine HCl (Atarax) 10 MG tablet Start: 09-24-2022 hydrOXYzine hy drochloride 50 mg oral tablet Dose : 50 mg = 1 tab(s), Oral, QID, PRN for anxiety, # 40 tab(s), 0 Refill(s) Start Date: 09/24/22 Status: Ordered Start: 08-26-2022 End: 08-27-2022 take 1 capsule by mouth every six hours as needed for anxiety 50 mg, Oral, Every 6 hours PRN, anxiety, Starting on [facility] 08/26/22 at 1630 ibuprofen 600 mg oral tablet (20 sources) Nonsteroidal Anti-inflammatory Drug Start: 02-17-2024 End: 05-09-2024 take 1 tablet by mouth every eight hours as needed for pain ibuprofen 600 MG tablet Indications: Severe opioid use disorder on maintenance therapy (HCC) Take 1 tablet (600 mg) by mouth every 8 hours as needed for mild pain (1-3), moderate pain (4-6) or headaches for up to 15 days. 45 tablet 04/23/2024 05/09/2024 Discontinued (Therapy completed) Start: 08-26-2022 End: 08-27-2022 take 1 tablet by mouth every six hours as needed for pain and headache 600 mg, Oral, Every 6 hours PRN, moderate pain (4-6), headaches, Starting on Stacy 08/26/22 at 1630 Start: 12-28-2020 End: 12-28-2020 ibuprofen (ADVIL;MOTRIN) tab let 800 mg iohexol (OMNIPAQUE 240) injection 50 mL (1 source) Start: 09-22-2019 End: 09-22-2019 iohexol (OMNIPAQUE 240) injection 50 mL iopamidol (Isovue-370) 76 % injection 100 mL (2 sources) Start: 11-30-2024 End: 11-30-2024 take 100 mL intravenously once as needed 100 mL, IntraVENous, IMG once PRN, contrast, Starting on Tue11/30/24 at 1817, For 1 dose iopamidol (ISOVUE-370) 76 % injection 75 mL (3 sources) Start: 04-13-2021 End: 04-13-2021 iopamidol (ISOVUE-370) 76 % injection 75 mL Start: 09-22-2019 End: 09-22-2019 iopamidol (ISOVUE-370) 76 % injection 75 mL Start: 09-21-2019 End: 09-21-2019 iopamidol (ISOVUE-370) 76 % injection 75 mL iopamidol (Isovue-370) 76 % injection 75 mL (4 sources) Start: 02-13-2024 End: 02-13-2024 take 75 mL intravenously once as needed 75 mL, IntraVENous, IMG once PRN, contrast, Starting on Tue02/13/24 at 2314, For 1 dose Start: 01-29-2023 End: 01-29-2023 iopamidol (Isovue-370) 76 % injection 75 mL 1 ml ketorolac tromethamine 30 mg/ml cartridge (17 sources) Nonsteroidal Anti-inflammatory Drug, Cyclooxygenase Inhibitor Start: 05-27-2024 End: 05-28-2024 take 15 mg intravenously every eight hours as needed for pain 15 mg, IntraVENous, Every 8 hours PRN, severe pain (7-10), Starting on Tue05/27/24 at 1637, For 3 doses Start: 09-16-2022 End: 09-16-2022 ketorolac (Toradol) injectio n 15 mg Start: 09-16-2022 End: 09-16-2022 ketorolac (Toradol) injectio n 15 mg Start: 08-06-2022 End: 08-06-2022 ketorolac (Toradol) injectio n 15 mg Start: 07-28-2022 End: 07-28-2022 ketorolac (Toradol) injectio n 15 mg Start: 04-24-2022 End: 04-24-2022 ketorolac (Toradol) injectio n 30 mg Start: 04-24-2022 End: 04-29-2022 take 1 tablet by mouth every six hours as needed for pain ketorolac (Toradol) 10 MG tablet Take 1 tablet (10 mg) by mouth every 6 hours as needed for moderate pain (4-6) for up to 5 days. 20 tablet 0 04/24/2022 04/29/2022 Active Start: 07-26-2021 End: 07-26-2021 ketorolac (TORADOL) injectio n 30 mg Start: 02-16-2021 End: 02-16-2021 ketorolac (TORADOL) injectio n 30 mg Start: 07-04-2020 End: 07-04-2020 ketorolac (TORADOL) injectio n 30 mg Start: 07-03-2020 End: 07-03-2020 ketorolac (TORADOL) injectio n 15 mg labetalol hydrochloride 5 mg/ml injectable solution (6 sources) beta-Adrenergic Viry Start: 02-11-2024 End: 02-13-2024 10 mg, IntraVENous, Every 3 hours PRN, high blood pressure, First line, give for blood pressure greater than 140 hold for heart rate less than 60 bpm, Starting on 02/11/24 at 1922 Start: 02-11-2024 End: 02-11-2024 take 10 mg intravenously every four hours as needed for hypertension 10 mg, IntraVENous, Every 4 hours PRN, high blood pressure, First line, give for blood pressure greater than 140 hold for heart rate less than 60 bpm, Starting on 02/11/24 at 1534 Start: 04-05-2020 End: 04-05-2020 labetalol (NORMODYNE;TRANDAT E) injection 10 mg labetalol (Normodyne,Trandate) injection 10 mg (2 sources) Start: 02-01-2023 End: 02-03-2023 take 10 mg intravenously every four hours as needed for hypertension labetalol (Normodyne,Trandate) injection 10 mg Start: 02-01-2023 End: 02-01-2023 take 10 mg intravenously every six hours as needed for hypertension labetalol (Normodyne,Trandate) injection 10 mg lamoTRIgine 100 mg oral tablet (5 sources) Mood Stabilizer, Anti-epileptic Agent Start: 04-19-2023 End: 04-22-2023 take 50 mg by mouth once daily 50 mg, Oral, Daily, First dose on Tue04/19/23 at 1425 Start: 09-30-2021 End: 04-24-2023 take 2 tablets by mouth once daily lamoTRIgine (LaMICtal) 25 MG tablet Take 2 tablets by mouth daily. 0 09/30/2021 04/24/2023 Discontinued lidocaine 0.04 mg/mg medicated patch (20 sources) Antiarrhythmic, Amide Local Anesthetic Start: 09-19-2022 End: 09-19-2022 Lidocaine 4 % patch 1 patch Start: 09-27-2021 apply 1 dose transde rmal route once daily lidocaine 4 % external patch Place 1 patch onto the skin daily 0 09/27/2021 Active Start: 09-24-2021 lidocaine 4 % external patch 1 patch Start: 12-28-2020 End: 01-11-2021 lidocaine (LIDODERM) 5 % Rahul ce 1 patch onto the skin daily for 14 days 12 hours on, 12 hours off. 14 patch 0 12/28/2020 01/11/2021 Active Start: 12-28-2020 lidocaine 4 % external patch 1 patch Start: 05-23-2019 End: 01-29-2023 apply 1 dose transdermal route once daily, then apply 1 dose transdermal route every twelve hours lidocaine (Lidoderm) 5 % patch Apply 1 patch topically daily. Remove & discard patch within 12 hours or as directed by . 15 patch 0 04/24/2022 Active lisinopril 5 mg oral tablet (20 sources) Angiotensin Converting Enzyme Inhibitor Start: 09-24-2021 End: 05-09-2024 lisinopril 5 MG tablet Take 5 mg by mouth. 09/27/2021 05/09/2024 Discontinued (Therapy completed) Start: 05-15-2019 lisinopril (MI INIVIL;ZESTRIL) tablet 10 mg Start: 05-15-2019 End: 06-25-2019 take 1 tablet by mouth once daily lisinopril (PRINIVIL;ZESTRIL) 5 MG tablet Take 1 tablet by mouth daily 30 tablet 0 05/15/2019 06/25/2019 Discontinued (Therapy completed) End: 04-19-2023 LISINOPRIL PO Take by mouth. 0 04/19/2023 Discontinued LISINOPRIL PO Ta ke by mouth. 0 Suspended LISINOPRIL PO Ta ke by mouth. 0 Active LORazepam (20 sources) Benzodiazepine Start: 12-04-2024 End: 12-04-2024 take 1 tablet by mouth every six hours as needed LORazepam (Ativan) tablet 1 mg Start: 11-30-2024 End: 11-30-2024 2 mg, IntraVENous, Once, On Tue11/30/24 at 0200, For 1 dose, For IV doses dilute dose with 1ml NS. Start: 11-30-2024 End: 11-30-2024 2 mg, IntraVENous, Once, On Tue11/30/24 at 0200, For 1 dose, For IV doses dilute dose with 1ml NS. Start: 11-30-2024 End: 11-30-2024 4 mg, IntraVENous, Once, On Tue11/30/24 at 0610, For 1 dose, For IV doses dilute dose with 1ml NS. Start: 11-30-2024 End: 11-30-2024 2 mg, IntraVENous, Once, On Tue11/30/24 at 0325, For 1 dose, For IV doses dilute dose with 1ml NS. Start: 11-29-2024 End: 11-29-2024 take 3 mg by mouth once 3 mg, Oral, Once, On 11/16 at 1920, For 1 dose Start: 05-27-2024 End: 05-28-2024 LORazepam (Ativan) tablet 1 mg Start: 05-27-2024 End: 05-27-2024 1 mg, IntraVENous, Once, On 05/27/24 at 1225, For 1 dose, For IV doses dilute dose with 1ml NS. Start: 03-06-2024 End: 03-06-2024 LORazepam (Ativan) tablet 1 mg Start: 02-14-2024 End: 02-14-2024 0.5 mg, IntraVENous, Once, O n 02/14/24 at 0205, For 1 dose, For IV doses dilute dose with 1ml NS. Start: 02-11-2024 End: 02-13-2024 LORazepam (Ativan) tablet 1 mg Start: 02-08-2024 End: 02-08-2024 1 mg, IntraVENous, Once, On 02/08/24 at 0505, For 1 dose, For IV doses dilute dose with 1ml NS. Start: 01-28-2024 End: 01-28-2024 1 mg, IntraVENous, Once, On 01/28/24 at 2240, For 1 dose, For IV doses dilute dose with 1ml NS. Start: 04-19-2023 End: 04-22-2023 LORazepam (Ativan) tablet 1 mg Start: 04-19-2023 End: 04-19-2023 LORazepam (Ativan) injection 2 mg Start: 04-17-2023 End: 04-17-2023 LORazepam (Ativan) tablet 1 mg Start: 04-16-2023 End: 04-16-2023 LORazepam (Ativan) injection 1 mg Start: 01-31-2023 End: 01-31-2023 LORazepam (Ativan) 2 MG/ML injection - Pyxis ADS Override Pull Start: 01-30-2023 End: 02-03-2023 LORazepam (Ativan) tablet 1 mg Start: 01-29-2023 End: 02-03-2023 take 1 mg intravenously every four hours as needed for anxiety LORazepam (Ativan) injection 1 mg Start: 09-24-2022 LORazepam 2 mg oral tablet Dose : 2 mg = 1 tab(s), Oral, Once, 0 Refill(s), 90.9 Start Date: 09/24/22 Status: Ordered Start: 09-18-2022 End: 09-19-2022 LORazepam (Ativan) tablet 1 mg Start: 09-18-2022 End: 09-18-2022 LORazepam (Ativan) injection 1 mg Start: 09-16-2022 End: 09-16-2022 LORazepam (Ativan) tablet 1 mg Start: 09-16-2022 End: 09-16-2022 LORazepam (Ativan) injection 1 mg Start: 08-26-2022 End: 08-26-2022 LORazepam (Ativan) injection 1 mg Start: 08-26-2022 End: 08-26-2022 LORazepam (Ativan) injection 2 mg Start: 07-28-2022 End: 07-28-2022 LORazepam (Ativan) injection 1 mg Start: 09-26-2021 End: 10-26-2021 take 1 tablet by mouth every six hours as needed for anxiety LORazepam (ATIVAN) 1 MG tablet Indications: Alcohol use Take 1 tablet by mouth every 6 hours as needed for Anxiety for up to 30 days. 0 09/26/2021 10/26/2021 Active Start: 09-25-2021 LORazepam (ATI VAN) injection 1 mg Start: 09-25-2021 LORazepam (ATI VAN) injection 2 mg Start: 09-24-2021 End: 09-24-2021 LORazepam (ATIVAN) injection 2 mg Start: 07-03-2020 LORazepam (ATI VAN) tablet 1 mg Start: 04-05-2020 End: 05-05-2020 take 1 tablet by mouth every six hours as needed for anxiety LORazepam (ATIVAN) 1 MG tablet Indications: Alcohol withdrawal syndrome without complication (HCC) Take 1 tablet by mouth every 6 hours as needed for Anxiety for up to 30 days. 2 tablet 0 04/05/2020 05/05/2020 Active Start: 04-05-2020 End: 04-05-2020 LORazepam (ATIVAN) injection 2 mg Start: 09-22-2019 End: 09-22-2019 LORazepam (ATIVAN) injection 1 mg magnesium oxide 400 mg oral tablet (20 sources) Start: 02-08-2024 End: 04-23-2024 take 1 tablet by mouth once daily magnesium oxide (Mag-Ox) 400 mg tablet Take 1 tablet (400 mg) by mouth daily. 30 tablet 02/08/2024 04/23/2024 Discontinued (Therapy completed) 50 ml magnesium sulfate 40 mg/ml injection (20 sources) Start: 12-03-2024 End: 12-03-2024 2,000 mg, IntraVENous, at 25 mL/hr, Administer over 2 Hours, Once, On 12/03/24 at 0800, For 1 dose, Recommended infusion rate not to exceed 1,000 mg (milligrams) per hour. Start: 11-29-2024 End: 12-02-2024 2,000 mg, IntraVENous, at 25 mL/hr, Administer over 2 Hours, Once, On 12/01/24 at 1130, For 1 dose, Recommended infusion rate not to exceed 1,000 mg (milligrams) per hour. Start: 05-27-2024 End: 05-27-2024 2,000 mg, IntraVENous, at 25 mL/hr, Administer over 2 Hours, Once, On 05/27/24 at 1030, For 1 dose, Recommended infusion rate not to exceed 1,000 mg (milligrams) per hour. Start: 02-12-2024 End: 02-12-2024 2,000 mg, IntraVENous, at 25 mL/hr, Administer over 2 Hours, Once, On 02/12/24 at 1800, For 1 dose, Recommended infusion rate not to exceed 1,000 mg (milligrams) per hour. Start: 04-17-2023 End: 04-17-2023 take 2000 mg intravenously every eight hours magnesium sulfate IVPB premix 2,000 mg Start: 01-29-2023 End: 01-29-2023 magnesium sulfate IVPB premi x 2,000 mg Start: 07-28-2022 End: 07-28-2022 magnesium sulfate IVPB premi x 2,000 mg Start: 09-24-2021 End: 09-24-2021 magnesium sulfate 4000 mg in 100 mL IVPB premix melatonin 3 mg oral tablet (7 sources) Start: 04-19-2023 End: 04-22-2023 take 3 mg by mouth once daily 3 mg, Oral, Nightly, First dose (after last modification) on Tue04/19/23 at 2100 Start: 04-17-2023 End: 04-17-2023 melatonin tablet 3 mg Start: 04-17-2023 End: 04-17-2023 melatonin tablet 3 mg Start: 02-02-2023 End: 02-03-2023 melatonin tablet 5 mg Start: 09-25-2021 take 1 tablet by naldo th once daily melatonin 5 mg TABS tablet Take 1 tablet by mouth nightly 0 09/26/2021 Active Start: 07-04-2020 melatonin tabl et 6 mg meloxicam 15 mg oral tablet (5 sources) Nonsteroidal Anti-inflammatory Drug Start: 09-24-2022 End: 04-24-2023 meloxicam (Mobic) 15 MG tablet Take 15 mg by mouth. 0 09/24/2022 04/24/2023 Discontinued methadone hydrochloride 10 mg/ml oral solution (20 sources) Opioid Agonist Start: 04-20-2023 End: 04-22-2023 methadone (Dolophine) 10 MG/ML solution 125 mg Start: 02-03-2023 End: 02-03-2023 methadone (Dolophine) 10 MG/ ML solution 125 mg End: 02-17-2024 take 150 mg by mouth once daily methadone (Dolophine) 10 MG/5ML solution Indications: Opioid Dependence Take 150 mg by mouth daily. 02/17/2024 Discontinued (Therapy completed) End: 01-29-2023 METHADONE HCL PO Take by naldo th. 0 01/29/2023 Discontinued METHADONE HCL PO Take by mouth. 0 Active methocarbamol 500 mg oral tablet (20 sources) Muscle Relaxant Start: 05-30-2024 End: 06-06-2024 take 1.5 tablets by mouth every eight hours methocarbamol (Robaxin) 500 MG tablet Indications: Alcohol withdrawal syndrome without complication (HCC) Take 1.5 tablets (750 mg) by mouth every 8 hours for 3 days. 14 tablet 05/30/2024 06/06/2024 Discontinued (Therapy completed) Start: 03-06-2024 End: 03-06-2024 take 500 mg intravenously every eight hours 500 mg, IntraVENous, Administer over 5 Minutes, Every 8 hours, First dose on Tue03/06/24 at 0820, For 3 days, Maximum dose: 3 g/day for no more than 3 consecutive days Start: 03-02-2024 End: 05-14-2024 take 1 tablet by mouth every six hours as needed for muscle spasms methocarbamol (Robaxin) 500 MG tablet Indications: Other closed displaced fracture of proximal end of right humerus, initial encounter Take 1 tablet (500 mg) by mouth every 6 hours as needed for muscle spasms for up to 21 days. 60 tablet 04/23/2024 05/09/2024 Discontinued (Therapy completed) Start: 04-19-2023 End: 04-22-2023 take 1 dose by mouth three times daily 500 mg, Oral, Every 8 hours scheduled (3 times per day), First dose (after last modification) on Tue04/19/23 at 1400 Start: 04-17-2023 End: 04-17-2023 take 1 dose by mouth three times daily 500 mg, Oral, Every 8 hours scheduled (3 times per day), First dose on 04/17/23 at 0600 Start: 08-26-2022 End: 08-27-2022 take 1 tablet by mouth every six hours as needed 1,000 mg, Oral, Every 6 hours PRN, muscle spasms, Starting on Stacy 08/26/22 at 1630 Start: 04-24-2022 End: 04-22-2023 methocarbamol (Robaxin) 500 MG tablet Take 2 tablets (1,000 mg) by mouth in the morning and 2 tablets (1,000 mg) at noon and 2 tablets (1,000 mg) before bedtime. Do all this for 10 days. 60 tablet 0 04/24/2022 04/22/2023 Discontinued (Stop taking at discharge) Start: 11-29-2020 End: 12-09-2020 take 1 tablet by mouth four times daily methocarbamol (ROBAXIN) 500 MG tablet Take 1 tablet by mouth 4 times daily for 10 days 40 tablet 0 11/29/2020 12/09/2020 Active methylPREDNISolone 125 mg injection (11 sources) Corticosteroid Start: 01-28-2024 End: 01-28-2024 40 mg, IntraVENous, Once, On 01/28/24 at 2240, For 1 dose Start: 01-30-2023 End: 01-30-2023 take 60 mg intravenously every twelve hours methylPREDNISolone sodium succinate (PF) (SOLU-Medrol) injection 60 mg Start: 01-29-2023 End: 02-02-2023 take 125 mg intravenously every eight hours methylPREDNISolone sodium succinate (PF) (SOLU-Medrol) injection 125 mg Start: 09-18-2022 End: 09-18-2022 methylPREDNISolone sodium alexis ccinate (PF) (SOLU-Medrol) injection 125 mg Start: 09-16-2022 End: 09-16-2022 methylPREDNISolone sodium alexis ccinate (PF) (SOLU-Medrol) injection 125 mg Start: 09-16-2022 End: 09-16-2022 methylPREDNISolone sodium alexis ccinate (PF) (SOLU-Medrol) injection 125 mg Start: 12-28-2020 End: 01-03-2021 methylPREDNISolone (MEDROL D OSEPACK) 4 MG tablet Take by mouth. 1 kit 0 12/28/2020 01/03/2021 Active Start: 07-04-2020 End: 07-04-2020 methylPREDNISolone sodium (SOLU-MEDROL) injection 40 mg methylPREDNISolone sod suc (PF) (SOLU-Medrol) 40 MG injection 40 mg (2 sources) Start: 09-19-2022 End: 09-19-2022 take 40 mg intravenously every six hours methylPREDNISolone sod suc (PF) (SOLU-Medrol) 40 MG injection 40 mg 2 ml metoclopramide 5 mg/ml prefilled syringe (4 sources) Dopamine-2 Receptor Antagonist Start: 11-18-2019 End: 11-18-2019 metoclopramide (REGLAN) injection 10 mg Start: 05-15-2019 End: 06-25-2019 metoclopramide (REGLAN) tabl et 10 mg mirtazapine 7.5 mg oral tablet (6 sources) Start: 09-29-2021 End: 04-24-2023 take 1 tablet by mouth once daily mirtazapine (Remeron) 7.5 MG tablet Take 1 tablet by mouth Nightly. 0 09/29/2021 04/24/2023 Discontinued Start: 09-26-2021 take 1 tablet by naldo th once daily mirtazapine (REMERON) 7.5 MG tablet Take 1 tablet by mouth nightly 30 tablet 3 09/26/2021 Active Start: 09-24-2021 mirtazapine (R EMERON) tablet 7.5 mg 1 ml morphine sulfate 4 mg/ml injection (10 sources) Opioid Agonist Start: 09-19-2022 End: 09-19-2022 morphine sulfate (PF) injection 2 mg Start: 09-19-2022 End: 09-19-2022 morphine sulfate (PF) inject ion 2 mg Start: 09-19-2022 End: 09-19-2022 morphine sulfate (PF) inject ion 2 mg Start: 09-19-2022 End: 09-19-2022 morphine sulfate (PF) inject ion 2 mg Start: 04-13-2021 End: 04-13-2021 morphine sulfate (PF) inject ion 4 mg Start: 11-18-2019 End: 11-18-2019 morphine injection 4 mg Start: 09-22-2019 morphine (PF) injection 2 mg Start: 09-21-2019 End: 09-22-2019 morphine injection 4 mg Start: 09-21-2019 End: 09-21-2019 morphine (PF) 4 MG/ML inject ion Multiple Vitamin (multivitamin) capsule (20 sources) Start: 02-13-2024 End: 05-30-2024 take 1 capsule by mouth once daily Multiple Vitamin (multivitamin) capsule Take 1 capsule by mouth daily. 3000 capsule 11 02/13/2024 05/30/2024 Discontinued (Therapy completed) Start: 02-13-2024 End: 02-12-2025 take 1 capsule by mouth once daily Multiple Vitamin (multivitamin) capsule Take 1 capsule by mouth daily. 3000 capsule 11 02/13/2024 02/12/2025 Suspended Start: 02-13-2024 End: 02-12-2025 take 1 capsule by mouth once daily Multiple Vitamin (multivitamin) capsule Take 1 capsule by mouth daily. 3000 capsule 11 02/13/2024 02/12/2025 Active mupirocin 0.02 mg/mg topical ointment (6 sources) RNA Synthetase Inhibitor Antibacterial Start: 12-01-2024 End: 12-04-2024 Nasal, 2 times daily, First dose on Tue12/01/24 at 0900, For 5 days, MRSA decolonization Start: 02-11-2024 End: 02-14-2024 1 Application, Nasal, 2 time s daily, First dose on Tue02/14/24 at 0900, For 5 days, Indications: MRSA Nasal Decolonization 1 ml naloxone hydrochloride 0.4 mg/ml injection (20 sources) Opioid Antagonist Start: 12-01-2024 End: 12-04-2024 0.4 mg, IntraVENous, Every 5 min PRN, opioid reversal, respiratory depression, Starting on 12/01/24 at 1339, +++ For RR Start: 05-28-2024 End: 05-28-2024 0.4 mg, IntraVENous, Every 5 min PRN, opioid reversal, respiratory depression, Starting on 05/28/24 at 1326, +++ For RR Start: 03-20-2024 End: 03-20-2025 naloxone (Narcan) 4 mg/0.1 m L nasal spray Indications: Severe opioid use disorder on maintenance therapy (HCC) Administer 1 spray (4 mg) into affected nostril(s) as needed for opioid reversal. May repeat every 2-3 minutes if needed, alternating nostrils, until medical assistance becomes available. 2 each 03/20/2024 03/20/2025 Active Start: 03-06-2024 End: 03-06-2024 0.4 mg, IntraVENous, Every 5 min PRN, opioid reversal, respiratory depression, Starting on Tue03/06/24 at 0817, +++ For RR Start: 02-11-2024 End: 02-14-2024 0.4 mg, IntraVENous, Every 5 min PRN, opioid reversal, respiratory depression, Starting on Tue02/14/24 at 0618, +++ For RR Start: 04-21-2023 End: 04-22-2023 naloxone (Narcan) injection 0.4 mg naproxen 500 mg oral tablet (5 sources) Nonsteroidal Anti-inflammatory Drug End: 09-26-2021 naproxen (NAPROSYN) 500 MG tablet Take 500 mg by mouth as needed for Pain 0 09/26/2021 Discontinued (Stop Taking at Discharge) Nicotine (4 sources) Cholinergic Nicotinic Agonist Start: 01-30-2023 End: 02-03-2023 nicotine (Nicoderm, Step 1) 21 MG/24HR patch 1 patch Start: 09-27-2021 apply 1 dose transde rmal route once daily nicotine (NICODERM CQ) 21 MG/24HR Place 1 patch onto the skin daily 30 patch 3 09/27/2021 Active Start: 09-24-2021 nicotine (JANY DERM CQ) 21 MG/24HR 1 patch Start: 07-03-2020 apply 1 dose transde rmal route once daily as needed 1 patch, Transdermal, Administer over 24 Hours, DAILY PRN, nicotine withdrawal, Starting Stacy 07/03/20 at 2021 Apply new patch to nonhairy, clean, dry skin on the upper body or upper outer arm. Rotate patch sites. Notify pharmacy if patient or provider prefers patch to be removed at bedtime and replaced in the morning. Hazardous Medication -- Refer to facility policy for handling and disposal. omeprazole 40 mg delayed release oral capsule (20 sources) Proton Pump Inhibitor Start: 03-23-2024 End: 08-30-2025 take 1 capsule by mouth once daily before breakfast omeprazole (PriLOSEC) [address] capsule Indications: Alcohol withdrawal syndrome without complication (HCC) , Severe opioid use disorder on maintenance therapy (HCC) , Gastroesophageal reflux disease without esophagitis Take 1 capsule (40 mg) by mouth every morning (before breakfast). Do not crush or chew. 30 capsule 08/30/2024 12/04/2024 Discontinued (Stop taking at discharge) 2 ml ondansetron 2 mg/ml injection (20 sources) Serotonin-3 Receptor Antagonist Start: 02-13-2024 End: 02-13-2024 4 mg, IntraVENous, Once, On 02/13/24 at 2220, For 1 dose Start: 01-28-2024 End: 01-28-2024 4 mg, IntraVENous, Once, On 01/28/24 at 2245, For 1 dose Start: 04-24-2023 End: 04-24-2023 ondansetron (Zofran) injecti on 4 mg Start: 04-19-2023 End: 04-19-2023 ondansetron (Zofran) injecti on 4 mg Start: 09-24-2022 ondansetron 4 mg oral tablet, disintegrating 0 Refill(s) Start Date: 09/24/22 Status: Ordered Start: 08-26-2022 End: 08-27-2022 take 1 tablet by mouth every six hours as needed for nausea and vomiting 4 mg, Oral, Every 6 hours PRN, nausea, vomiting, Starting on Stacy 08/26/22 at 1630 Start: 04-13-2021 End: 09-26-2021 take 1 tablet by mouth every eight hours as needed for nausea ondansetron (ZOFRAN) 4 MG tablet Take 1 tablet by mouth every 8 hours as needed for Nausea or Vomiting 8 tablet 0 04/13/2021 09/26/2021 Discontinued (Stop Taking at Discharge) Start: 04-13-2021 End: 04-13-2021 ondansetron (ZOFRAN) injecti on 4 mg Start: 12-28-2020 End: 12-28-2020 ondansetron (ZOFRAN-ODT) disintegrating tablet 4 mg Start: 04-05-2020 End: 04-05-2020 ondansetron (ZOFRAN) injecti on 4 mg Start: 11-18-2019 End: 11-18-2019 ondansetron (ZOFRAN) 4 MG/2M L injection Start: 11-18-2019 End: 11-18-2019 ondansetron (ZOFRAN) injecti on 4 mg Start: 09-21-2019 End: 11-18-2019 take 1 tablet by mouth three times daily as needed for nausea ondansetron (ZOFRAN-ODT) 4 MG disintegrating tablet Take 1 tablet by mouth 3 times daily as needed for Nausea or Vomiting 21 tablet 0 09/21/2019 11/18/2019 Discontinued (Therapy completed) Start: 09-21-2019 End: 09-21-2019 ondansetron (ZOFRAN) injecti on 4 mg Start: 09-21-2019 End: 09-21-2019 ondansetron (ZOFRAN) 4 MG/2M L injection Start: 06-25-2019 End: 06-25-2019 ondansetron (ZOFRAN) injecti on 4 mg ondansetron ODT (Zofran-ODT) disintegrating tablet 4 mg (14 sources) Start: 05-27-2024 End: 05-28-2024 take 1 tablet by mouth every eight hours as needed for nausea and vomiting ondansetron ODT (Zofran-ODT) disintegrating tablet 4 mg Start: 02-14-2024 End: 02-14-2024 take 1 tablet by mouth every eight hours as needed for nausea and vomiting ondansetron ODT (Zofran-ODT) disintegrating tablet 4 mg Start: 02-11-2024 End: 02-13-2024 take 1 tablet by mouth every eight hours as needed for nausea and vomiting ondansetron ODT (Zofran-ODT) disintegrating tablet 4 mg Start: 04-19-2023 End: 04-22-2023 take 1 tablet by mouth every eight hours as needed for nausea and vomiting ondansetron ODT (Zofran-ODT) disintegrating tablet 4 mg Start: 04-17-2023 End: 04-17-2023 take 1 tablet by mouth every eight hours as needed for nausea and vomiting ondansetron ODT (Zofran-ODT) disintegrating tablet 4 mg Start: 01-29-2023 End: 02-03-2023 take 1 tablet by mouth every eight hours as needed for nausea and vomiting ondansetron ODT (Zofran-ODT) disintegrating tablet 4 mg Start: 09-18-2022 End: 09-19-2022 take 1 tablet by mouth every eight hours as needed for nausea and vomiting ondansetron ODT (Zofran-ODT) disintegrating tablet 4 mg Start: 09-16-2022 End: 09-16-2022 take 1 tablet by mouth every eight hours as needed for nausea and vomiting ondansetron ODT (Zofran-ODT) disintegrating tablet 4 mg pantoprazole (ProtoNix) 40 m g in sodium chloride (PF) 0.9 % 10 mL injection (3 sources) Start: 11-30-2024 End: 12-04-2024 40 mg, IntraVENous, Administ er over 2 Minutes, 2 times daily before meals, First dose on Tue11/30/24 at 1600, Reconstitute with 10 ml NS. Vial expires 2 hrs after reconstitution. Start: 04-24-2023 End: 04-25-2023 pantoprazole (ProtoNix) 40 m g in sodium chloride (PF) 0.9 % 10 mL injection PHENobarbital 64.8 mg oral tablet (20 sources) Start: 12-04-2024 End: 12-04-2024 take 1 tablet by mouth every six hours 64.8 mg, Oral, Every 6 hours, First dose on Tue12/04/24 at 1200 Start: 11-30-2024 End: 11-30-2024 take 97.2 mg by mouth once 97.2 mg, Oral, Once, On Tue11/30/24 at 0120, For 1 dose Start: 05-27-2024 End: 05-27-2024 take 1 tablet by mouth every four hours 97.2 mg, Oral, Every 4 hours, First dose on 05/27/24 at 1400 Start: 05-27-2024 End: 05-27-2024 take 97.2 mg by mouth once 97.2 mg, Oral, Once, On Tue05/27/24 at 0925, For 1 dose Start: 02-14-2024 End: 02-14-2024 take 64.8 mg by mouth three times daily 64.8 mg, Oral, 3 times daily, First dose on Tue02/14/24 at 0900 Start: 04-17-2023 End: 04-17-2023 take 1 tablet by mouth every four hours PHENobarbital (Luminal) tablet 97.2 mg Start: 04-16-2023 End: 04-16-2023 PHENobarbital (Luminal) tabl et 97.2 mg Start: 02-02-2023 End: 02-03-2023 take 100 mg intravenously every eight hours as needed PHENobarbital (Luminal) injection 100 mg Start: 01-31-2023 End: 02-02-2023 take 130 mg intravenously every six hours as needed PHENobarbital (Luminal) injection 130 mg Start: 01-30-2023 End: 01-30-2023 PHENobarbital (Luminal) inje ction 130 mg Start: 01-30-2023 End: 01-31-2023 take 100 mg intravenously every eight hours as needed PHENobarbital (Luminal) injection 100 mg Start: 01-30-2023 End: 01-30-2023 take 65 mg intravenously every eight hours PHENobarbital (Luminal) injection 65 mg Start: 09-24-2022 PHENobarbital 16.2 mg oral tablet 0 Refill(s), 90.9 Start Date: 09/24/22 Status: Ordered Start: 09-18-2022 End: 09-19-2022 take 1 tablet by mouth every six hours PHENobarbital (Luminal) tablet 100 mg Start: 09-16-2022 End: 09-16-2022 PHENobarbital (Luminal) inje ction 100 mg Start: 08-26-2022 End: 08-27-2022 take 65 mg intravenously every six hours as needed 65 mg, IntraVENous, Every 6 hours PRN, ciwa of 12 or above, please notify ADM [employer] program technician if need 3 consequetive doses, Starting on Stacy 08/26/22 at 1630 Administer no faster than 1 mg/kg/minute, to a max of 60 mg/min in adults. Start: 08-26-2022 End: 08-27-2022 take 1 tablet by mouth every four hours 97.2 mg, Oral, Every 4 hours, First dose on Stacy 08/26/22 at 1635 Start: 09-26-2021 End: 09-29-2021 PHENobarbital (LUMINAL) tabl et 64.8 mg Start: 09-26-2021 End: 09-26-2021 PHENobarbital (LUMINAL) tabl et 97.2 mg Start: 09-25-2021 End: 09-25-2021 PHENobarbital (LUMINAL) inje ction 100 mg Start: 09-24-2021 End: 09-25-2021 PHENobarbital (LUMINAL) tabl et 97.2 mg Start: 04-05-2020 End: 04-05-2020 PHENobarbital (LUMINAL) tabl et 97.2 mg PHENobarbital (Luminal) 374.4 mg in sodium chloride 0.9 % 100 mL IVPB (2 sources) Start: 11-30-2024 End: 11-30-2024 374.4 mg (rounded from 374 mg = 5 mg/kg 74.8 kg), IntraVENous, at 205.76 mL/hr, Administer over 30 Minutes, Once, On Tue11/30/24 at 1230, For 1 dose, Maximum infusion rate = 1 mg/kg/min, not to exceed 60 mg/min. PHENobarbital (Luminal) injection 100 mg (2 sources) Start: 02-12-2024 End: 02-13-2024 take 100 mg intravenously every four hours 100 mg, IntraVENous, Every 4 hours, First dose (after last modification) on 02/12/24 at 1800, Administer no faster than 1 mg/kg/minute, to a max of 60 mg/min in adults. PHENobarbital (Luminal) injection 100 mg (2 sources) Start: 05-27-2024 End: 05-28-2024 take 100 mg intravenously every four hours 100 mg, IntraVENous, Every 4 hours, First dose on Tue05/27/24 at 1700, HOLD if sedated, unsteady gait, SBP PHENobarbital (Luminal) injection 130 mg (2 sources) Start: 02-11-2024 End: 02-12-2024 130 mg, IntraVENous, 3 times daily, First dose on 02/11/24 at 2200, Administer no faster than 1 mg/kg/minute, to a max of 60 mg/min in adults. PHENobarbital (Luminal) injection 65 mg (2 sources) Start: 12-04-2024 End: 12-04-2024 take 65 mg intravenously every six hours 65 mg, IntraVENous, Every 6 hours, First dose (after last reorder) on Tue12/04/24 at 0100, Administer no faster than 1 mg/kg/minute, to a max of 60 mg/min in adults. HOLD for RASS PHENobarbital (Luminal) injection 65 mg (4 sources) Start: 12-03-2024 End: 12-04-2024 take 65 mg intravenously every six hours 65 mg, IntraVENous, Every 6 hours, First dose (after last modification) on Tue12/03/24 at 1800, Administer no faster than 1 mg/kg/minute, to a max of 60 mg/min in adults. HOLD for RASS Start: 12-02-2024 End: 12-03-2024 take 65 mg intravenously every four hours 65 mg, IntraVENous, Every 4 hours, First dose (after last modification) on Tue12/02/24 at 1200, Administer no faster than 1 mg/kg/minute, to a max of 60 mg/min in adults. HOLD for RASS PHENobarbital (Luminal) injection 97.5 mg (2 sources) Start: 12-01-2024 End: 12-02-2024 take 97.5 mg intravenously every four hours 97.5 mg, IntraVENous, Every 4 hours, First dose (after last modification) on Tue12/01/24 at 1600, Administer no faster than 1 mg/kg/minute, to a max of 60 mg/min in adults. HOLD for RASS piperacillin-tazoba ctam (Zosyn) 3,375 mg in sodium chloride 0.9 % 50 mL IVPB Mini-Bag Plus (1 source) Start: 01-30-2023 End: 01-31-2023 take 3375 mg intravenously every eight hours piperacillin-tazob actam (Zosyn) 3,375 mg in sodium chloride 0.9 % 50 mL IVPB Mini-Bag Plus polyethylene glycol 3350 18404 mg powder for oral solution (20 sources) Osmotic Laxative Start: 05-27-2024 End: 05-28-2024 take 17 g by mouth every twenty-four hours as needed for constipation Start: 03-06-2024 End: 03-09-2024 take 17 g by mouth once daily polyethylene glycol, PEG , 3350 (Miralax) 17 g packet Take 17 g by mouth daily for 3 days. 3 packet 03/06/2024 03/09/2024 Active Start: 02-15-2024 End: 02-14-2024 take 1 dose by mouth every twenty-four hours for constipation 17 g, Oral, Daily, First dose on Tue02/15/24 at 0600, 1st line for treatment of constipation - give scheduled if no bowel movement in past 24 hours. Start: 02-15-2024 End: 02-14-2024 take 1 dose by mouth every twenty-four hours for constipation 17 g, Oral, Daily, First dose on Tue02/15/24 at 0600, 1st line for treatment of constipation - give scheduled if no bowel movement in past 24 hours. Start: 02-12-2024 End: 02-13-2024 17 g, Oral, Daily, First dos e on 02/12/24 at 0915 Start: 04-19-2023 End: 04-22-2023 take 17 g by mouth every twenty-four hours as needed for constipation 17 g, Oral, Daily PRN, constipation, Starting on Tue04/19/23 at 1032, 1st line for treatment of constipation - give scheduled if no bowel movement in past 24 hours. Start: 04-17-2023 End: 04-17-2023 take 17 g by mouth every twenty-four hours as needed for constipation polyethylene glycol (PEG) 3350 (Miralax) packet 17 g Start: 02-02-2023 End: 02-03-2023 polyethylene glycol (PEG) 33 50 (Miralax) packet 17 g Start: 09-18-2022 End: 09-19-2022 take 17 g by mouth every twenty-four hours as needed for constipation 17 g, Oral, Daily PRN, constipation, Starting on Tue09/18/22 at 1955 1st line for treatment of constipation - give scheduled if no bowel movement in past 24 hours. Start: 09-16-2022 End: 09-16-2022 take 17 g by mouth every twenty-four hours as needed for constipation 17 g, Oral, Daily PRN, constipation, Starting on Stacy 09/16/22 at 1045 1st line for treatment of constipation - give scheduled if no bowel movement in past 24 hours. Start: 07-03-2020 17 g, Oral, DA RAYNA PRN, Constipation, Starting Stacy 07/03/20 at 2014 First line therapy for constipation potassium chloride 20 meq powder for oral solution (20 sources) Start: 12-02-2024 End: 12-02-2024 take 1 [oz_av] by mouth twice daily 40 mEq, Oral, 2 times daily, First dose on Tue12/02/24 at 0400, For 2 doses, Dissolve each packet in 4 ounces of water = 5 mEq per 1 oz fluid., Indications: Hypokalemia Start: 12-01-2024 End: 12-01-2024 40 mEq, IntraVENous, at 125 mL/hr, Administer over 4 Hours, Once, On 12/01/24 at 1130, For 1 dose, Max infusion rate = 10 mEq/hr Start: 11-30-2024 End: 11-30-2024 40 mEq, Oral, Once, On Tue at 1330, For 1 dose, Best given with food and plenty of water to minimize gastric irritation. Do not crush or chew. Start: 11-30-2024 End: 11-30-2024 10 mEq, IntraVENous, at 100 mL/hr, Administer over 1 Hours, Every 1 hour, First dose on Tue11/30/24 at 0120, For 4 doses, Total dose: 40 mEq Start: 05-28-2024 End: 05-28-2024 take 1 [oz_av] by mouth once 40 mEq, Oral, Once, On 05/28/24 at 0640, For 1 dose, Dissolve each packet in 4 ounces of water = 5 mEq per 1 oz fluid., Indications: Hypokalemia Start: 05-27-2024 End: 05-27-2024 10 mEq, IntraVENous, at 100 mL/hr, Administer over 1 Hours, Once, On Tue05/27/24 at 1030, For 1 dose Start: 05-27-2024 End: 05-27-2024 40 mEq, Oral, Once, On Sun at 1030, For 1 dose, Best given with food and plenty of water to minimize gastric irritation. Do not crush or chew. Start: 02-12-2024 End: 02-12-2024 40 mEq, IntraVENous, at 125 mL/hr, Administer over 4 Hours, Once, On 02/12/24 at 0645, For 1 dose, Max infusion rate = 10 mEq/hr Start: 02-11-2024 End: 02-11-2024 40 mEq, IntraVENous, at 125 mL/hr, Administer over 4 Hours, Once, On 02/11/24 at 1700, For 1 dose, Max infusion rate = 10 mEq/hr Start: 02-08-2024 End: 02-18-2024 take 1 tablet by mouth twice daily potassium chloride CR (Klor-Con M10) 10 MEQ ER tablet Take 1 tablet (10 mEq) by mouth 2 times daily for 10 days. Do not crush or chew. 20 tablet 02/08/2024 02/18/2024 Start: 02-08-2024 End: 02-08-2024 take 1 [oz_av] by mouth once 40 mEq, Oral, Once, On d 02/08/24 at 0600, For 1 dose, Dissolve each packet in 4 ounces of water = 5 mEq per 1 oz fluid., Indications: Hypokalemia Start: 01-28-2024 End: 01-28-2024 take 1 [oz_av] by mouth once 40 mEq, Oral, Once, On Sa t 01/28/24 at 2320, For 1 dose, Dissolve each packet in 4 ounces of water = 5 mEq per 1 oz fluid., Indications: Hypokalemia Start: 04-25-2023 End: 04-25-2023 potassium chloride (Klor-Con ) packet 40 mEq Start: 04-17-2023 End: 04-17-2023 potassium chloride CR (Klor- Con M10) ER tablet 20 mEq Start: 01-29-2023 End: 01-29-2023 potassium chloride (Klor-Con ) packet 40 mEq Start: 09-19-2022 End: 09-19-2022 potassium chloride IVPB 10 m Eq Start: 09-18-2022 End: 09-18-2022 potassium chloride CR (Klor- Con M20) ER tablet 40 mEq Start: 09-16-2022 End: 09-16-2022 potassium chloride CR (Klor- Con M20) ER tablet 40 mEq Start: 07-28-2022 End: 07-28-2022 potassium chloride (Klor-Con ) packet 20 mEq Start: 09-25-2021 End: 09-25-2021 potassium chloride (KLOR-CON M) extended release tablet 40 mEq Potassium Chloride in NaCl IVPB 20 mEq (2 sources) Start: 03-06-2024 End: 03-06-2024 20 mEq, IntraVENous, Administer over 2 Hours, Once, On Tue03/06/24 at 0640, For 1 dose, Max infusion rate = 10 mEq/hr Promethazine (5 sources) Phenothiazine Start: 03-06-2024 End: 03-06-2024 take 1 tablet by mouth every six hours as needed for nausea and vomiting promethazine (Phenergan) tablet 12.5 mg Start: 07-03-2020 promethazine ( PHENERGAN) tablet 12.5 mg Start: 09-22-2019 promethazine ( PHENERGAN) tablet 12.5 mg Start: 09-22-2019 End: 09-22-2019 promethazine (PHENERGAN) inj ection 25 mg rosuvastatin calcium 40 mg oral tablet (6 sources) HMG-CoA Reductase Inhibitor Start: 09-26-2021 End: 04-19-2023 rosuvastatin (Crestor) 40 MG tablet Take 40 mg by mouth. 0 09/26/2021 04/19/2023 Discontinued Start: 09-24-2021 rosuvastatin ( CRESTOR) tablet 40 mg sennosides, group home 8.6 mg oral tablet (14 sources) Start: 03-06-2024 End: 03-06-2024 take 1 tablet by mouth once daily 8.6 mg (1 tablet), Oral, Nightly, First dose on Tue03/06/24 at 2100 Start: 03-06-2024 End: 03-06-2024 take 1 tablet by mouth once daily 8.6 mg (1 tablet), Oral, Nightly, First dose on Tue03/06/24 at 2100 Start: 03-06-2024 End: 04-05-2024 take 1 tablet by mouth once daily sennosides (Senokot) 8.6 MG tablet Take 1 tablet (8.6 mg) by mouth Nightly. 30 tablet 03/06/2024 04/05/2024 Active Start: 02-12-2024 End: 02-13-2024 take 1 tablet by mouth once daily 8.6 mg (1 tablet), Oral, Nightly, First dose on Tue02/12/24 at 2100 5 ml sodium chloride 9 mg/ml injection (20 sources) Start: 12-02-2024 End: 12-04-2024 10 mL, IntraVENous, Every 12 hours scheduled (2 times per day), First dose on Tue12/02/24 at 2100, Preprocedure Start: 12-02-2024 End: 12-04-2024 take 100 mL intravenously every hour as needed, then take 20 mL intravenously every hour as needed 5-250 mL/hr, IntraVENous, PRN, if patient receiving piggyback infusions and maintenance fluids are not ordered OR KVO fluids to protect IV site / prevent frequent line interruptions/ long duration, Starting on 12/02/24 at 1327, For piggyback infusion, administer at same rate as piggyback for a total of 25 mL. Enter 25 mL into dose field and piggyback rate into rate field of order. If piggyback is infusing at a rate less than 100 mL/hr, enter 25 mL into dose field and 100 mL/hr into rate field of order. For KVO fluids, enter rate of 20 mL/hr or less into rate field of order. Start: 12-02-2024 End: 12-04-2024 take 10 mL intravenously once as needed 10 mL, IntraVENous, PRN, line care, Starting on 12/02/24 at 1327, After every IV line use Start: 11-30-2024 End: 11-30-2024 125 mL/hr, IntraVENous, Once , On Tue11/30/24 at 0120, For 1 dose Start: 11-29-2024 End: 11-30-2024 1,000 mL, IntraVENous, at 1, 000 mL/hr, Administer over 1 Hours, Once, On Tue11/29/24 at 2330, For 1 dose Start: 05-27-2024 End: 05-27-2024 1,000 mL, IntraVENous, at 1, 000 mL/hr, Administer over 1 Hours, Once, On Tue05/27/24 at 0925, For 1 dose Start: 02-11-2024 End: 02-12-2024 take 75 mL intravenously every hour 75 mL/hr, IntraVENous, Continuous, Starting on 02/11/24 at 1545 Start: 02-11-2024 End: 02-13-2024 take 30 mL intravenously every six hours 30 mL, IntraVENous, Every 6 hours, First dose on 02/11/24 at 1545 Start: 02-11-2024 End: 02-13-2024 30 mL, IntraVENous, PRN, dionte e care, Starting on 02/11/24 at 1532 Start: 02-08-2024 End: 02-08-2024 1,000 mL, IntraVENous, at 1, 000 mL/hr, Administer over 1 Hours, Once, On Tue02/08/24 at 0505, For 1 dose Start: 01-28-2024 End: 01-28-2024 1,000 mL, IntraVENous, at 1, 000 mL/hr, Administer over 1 Hours, Once, On 01/28/24 at 2240, For 1 dose Start: 04-19-2023 End: 04-19-2023 sodium chloride 0.9 % bolus 1,000 mL Start: 04-17-2023 End: 04-17-2023 sodium chloride 0.9 % infusi on Start: 04-17-2023 End: 04-17-2023 take 5-40 mL intravenously every twelve hours sodium chloride 0.9% (NS) flush 5-40 mL Start: 04-16-2023 End: 04-16-2023 sodium chloride 0.9 % bolus 1,000 mL Start: 09-18-2022 End: 09-19-2022 10 mL, IntraVENous, Every 12 hours scheduled (2 times per day), First dose on 09/18/22 at 2100 Start: 09-18-2022 End: 09-19-2022 5-250 mL/hr, IntraVENous, MI N, if patient receiving piggyback infusions and maintenance fluids are not ordered OR KVO fluids to protect IV site / prevent frequent line interruptions/ long duration, Starting on 09/18/22 at 1955 For piggyback infusion, administer at same rate as piggyback for a total of 25 mL. Enter 25 mL into dose field and piggyback rate into rate field of order. If piggyback is infusing at a rate less than 100 mL/hr, enter 25 mL into dose field and 100 mL/hr into rate field of order. For KVO fluids, enter rate of 20 mL/hr or less into rate field of order. Start: 09-18-2022 End: 09-19-2022 take 10 mL intravenously once 10 mL, IntraVENous, PRN, line care, Starting on 09/18/22 at 1955 After every IV line use Start: 08-26-2022 End: 08-26-2022 sodium chloride 0.9 % bolus 1,000 mL Start: 07-28-2022 End: 07-28-2022 sodium chloride 0.9 % bolus 500 mL Start: 09-24-2021 End: 09-26-2021 sodium chloride flush 0.9 % injection 5-40 mL Start: 09-24-2021 0.9 % sodium c hloride infusion Start: 04-13-2021 End: 04-13-2021 0.9 % sodium chloride bolus Start: 07-03-2020 10 mL, Intrave nous, EVERY 12 HOURS SCHEDULED (2 times per day), First dose on Stacy 07/03/20 at 2100 Start: 07-03-2020 take 10 mL intraveno us route once as needed 10 mL, Intravenous, PRN, Line Care, After every IV line use, Starting Stacy 07/03/20 at 2020 Start: 04-05-2020 End: 04-05-2020 0.9 % sodium chloride bolus Start: 11-18-2019 End: 11-18-2019 0.9 % sodium chloride bolus Start: 09-22-2019 10 mL, Intrave nous, EVERY 12 HOURS SCHEDULED (2 times per day), First dose on 09/22/19 at 0930 Start: 09-22-2019 take 10 mL intraveno us route once as needed 10 mL, Intravenous, PRN, Line Care, After every IV line use, Starting [facility] 09/22/19 at 0914 Start: 09-21-2019 End: 09-21-2019 0.9 % sodium chloride bolus Start: 06-25-2019 End: 06-25-2019 0.9 % sodium chloride bolus sodium chloride 0.9 % 1,000 mL with multiple vitamin 10 mL, thiamine 100 mg, folic acid 1 mg infusion (2 sources) Start: 05-27-2024 End: 05-27-2024 150 mL/hr, IntraVENous, Once , On Tue05/27/24 at 1000, For 1 dose thiamine hydrochloride 100 m g/ml injectable solution (20 sources) Start: 12-01-2024 End: 12-04-2024 100 mg, IntraVENous, 3 times daily, First dose (after last modification) on 12/01/24 at 1430 Start: 12-01-2024 End: 12-01-2024 100 mg, IntraVENous, Daily, First dose on Tue12/01/24 at 0900 Start: 11-30-2024 End: 12-01-2024 take 100 mg by mouth once daily 100 mg, Oral, Daily, F irst dose on Tue11/30/24 at 0900 Start: 05-27-2024 End: 05-28-2024 take 100 mg by mouth once daily 100 mg, Oral, Daily, F irst dose (after last modification) on Tue05/28/24 at 0900 Start: 03-06-2024 End: 03-06-2024 take 100 mg by mouth once daily 100 mg, Oral, Daily, F irst dose on Tue03/06/24 at 0900 Start: 04-19-2023 End: 04-22-2023 thiamine (Vitamin B1) tablet 100 mg Start: 04-17-2023 End: 04-17-2023 thiamine (Vitamin B1) tablet 100 mg Start: 01-30-2023 End: 01-31-2023 thiamine (Vitamin B1) inject ion 100 mg Start: 01-29-2023 End: 02-03-2023 thiamine (Vitamin B1) tablet 100 mg Start: 09-18-2022 End: 09-19-2022 Thiamine Mononitrate (Vitami n B1) tablet 100 mg Start: 09-16-2022 End: 09-16-2022 100 mg, IntraVENous, Daily, First dose on Tue09/16/22 at 1200 Start: 08-26-2022 End: 08-27-2022 take 100 mg by mouth three times daily 100 mg, Oral, 3 times daily, First dose on Stacy 08/26/22 at 1635 Start: 09-25-2021 End: 09-26-2021 thiamine (B-1) injection 100 mg Start: 09-24-2021 End: 09-25-2021 take 1 tablet by mouth at bedtime thiamine mononitrate (THIAMINE) 100 MG tablet Take 1 tablet by mouth in the morning, at noon, and at bedtime 0 09/26/2021 Active Start: 07-04-2020 take 100 mg by mouth once mickie y 100 mg, Oral, DAILY, First dose on Tue07/04/20 at 0900 thiamine (Vitamin B1) 200 mg in sodium chloride 0.9 % 100 mL IVPB (2 sources) Start: 02-11-2024 End: 02-13-2024 200 mg, IntraVENous, at 200 mL/hr, Administer over 30 Minutes, 2 times daily, First dose on 02/11/24 at 1645, For 3 days, Protect from light. thiamine (Vitamin B1) 500 mg in sodium chloride 0.9 % 100 mL IVPB (2 sources) Start: 11-29-2024 End: 11-29-2024 500 mg, IntraVENous, at 200 mL/hr, Administer over 30 Minutes, Once, On Stacy 11/29/24 at 1825, For 1 dose, Protect from light. Vancomycin (1 source) Glycopeptide Antibacterial Start: 01-30-2023 End: 01-31-2023 take 1500 mg intravenously every twelve hours vancomycin IVPB 1500 mg in 250 mL NS (premix) vancomycin (VANCOCIN) 1500 mg in sodium chloride 0.9% 250 mL IVPB (1 source) Start: 09-25-2021 End: 09-26-2021 vancomycin (VANCOCIN) 1500 mg in sodium chloride 0.9% 250 mL IVPB Problems Active Problems Problem Classification Problem Date Documented Da te Episodic/Chronic Acute cerebrovascular disease (20 sources) Hemorrhage into subarachnoid space of neuraxis; Translations: [Nontraumatic subarachnoid hemorrhage, unspecified] Onset: 4 02-11-2024 Chronic Acute myocardial infarction (20 sources) Acute myocardial infarction; Translations: [Acute myocardial infarction, unspecified] Onset: 2 Chronic Alcohol-related disorders (20 sources) Alcohol abuse; Translations: [Alcohol withdrawal syndrome] Onset: 0 Resolved: 2 04-05-2020 Chronic Alcohol-related disorders (20 sources) Alcohol intoxication; Translations: [Alcohol use, unspecified with intoxication, unspecified] Onset: 3 04-17-2023 Episodic Anxiety disorders (20 sources) Anxiety; Translations: [Generalized anxiety disorder] Onset: 8 11-23-2017 Chronic Biliary tract disease (20 sources) Cholangiectasis; Translations: [Other specified diseases of biliary tract] Onset: 9 02-01-2023 Chronic Chronic obstructive pulmonary disease and bronchiectasis (20 sources) Acute exacerbation of chronic obstructive airways disease; Translations: [Chronic obstructive pulmonary disease with (acute) exacerbation] Onset: 3 Chronic Coronary atherosclerosis and other heart disease (20 sources) Coronary arteriosclerosis; Translations: [Atherosclerotic heart disease of [place] coronary artery without angina pectoris] Onset: 2 01-30-2022 Chronic E Codes: Fall (4 sources) Fall; Translations: [Unspecified fall, initial encounter] Onset: 5 11-29-2024 Episodic Esophageal disorders (20 sources) Gastroesophageal reflux disease without esophagitis; Translations: [Gastro-esophageal reflux disease without esophagitis] Onset: 4 03-23-2024 Chronic Essential hypertension (20 sources) Essential hypertension; Translations: [Essential (primary) hypertension] Onset: 2 Chronic Gastritis and duodenitis (1 source) Gastritis; Translations: [Gastritis, unspecified, without bleeding] 04-25-2023 Episodic Gastroduodenal ulcer (except hemorrhage) (20 sources) Peptic ulcer; Translations: [Peptic ulcer, site unspecified, unspecified as acute or chronic, without hemorrhage or perforation] Onset: 0 06-06-2020 Chronic Inflammation; infection of eye (except that caused by tuberculosis or sexually transmitteddisease) (7 sources) Iritis of left eye; Translations: [Iritis of left eye] Onset: 9 09-20-2018 Mood disorders (20 sources) Moderate major depression, single episode; Translations: [Depressive disorder] Onset: 8 11-23-2017 Chronic Other aftercare (8 sources) Long-term current use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 4.3 mmol/L Normal 3.5-5.1 [facility] Comment on above: Result Comment: [facility] potassium values may be up to 0.5 mmol/L lower than serum values. Performed By: #### L AB17, LAB30 ####Representative [employer] Relations: JACK ORTIZ ([phone])[facility] ([facility])[address] [place] [address] Protein [Mass/Vol] 6.2 g/dL Low 6.4-8.3 [facility] Comment on above: Performed By: #### L AB17, LAB30 ####[employer] Relations: JACK ORTIZ ([phone])[facility] ([facility])[address] [place] [address] Sodium [Moles/Vol] 133 mmol/L Low 136-145 [facility] Comment on above: Performed By: #### L AB17, LAB30 ####Represent[employer] Relations: JACK ORTIZ ([phone])[facility] ([facility])[address] [place] [address] Urea nitrogen [Mass/Vol] 12 mg/dL Normal 8-21 [facility] Comment on above: Performed By: #### L AB17, LAB30 ####Represent[employer] Relations: JACK ORTIZ ([phone])[facility])[address] [place] [address] Comprehensive metabolic 1998 panelon 12-04-2024 Albumin [Mass/Vol] 2.8 g/dL Low 3.5 - 5.0 g/dL [facility] ALP [Catalytic activity/Vol] 89 U/L 40 - 150 U/L [facility] ALT [Catalytic activity/Vol] 12 U[facility] Anion gap [Moles/Vol] 8 mmol/L 3 - 13 mmol/L [facility] AST [Catalytic activity/Vol] 25 U/L [facility] - 34 U/L [facility] Bilirubin [Mass/Vol] 0.2 mg/dL NINF - 1.2 mg/dL [facility] Calcium [Mass/Vol] 8.3 mg/dL Low 8.4 - 10. 2 mg/dL [facility] Chloride [Moles/Vol] 99 mmol/L 98 - 10 7 mmol/L [facility] CO2 [Moles/Vol] 26 mmol/L 22 - 29 mmol/L [facility] Creatinine [Mass/Vol] 0.67 mg/dL Low 0.72 - 1.25 mg/dL [facility] GFR/1.73 sq M.predicted (S/P/Bld) [Vol rate/Area] - PINF [facility] Comment on above: Calculation based on the Chronic Kidney Disease Epidemiology Collaboration (CKD-EPI) equation refit without adjustment for race Glucose [Mass/Vol] 101 mg/dL High 74 - 100 mg/dL [facility] Interpretation and review of laboratory results Abnormal [facility] Potassium [Moles/Vol] 4.3 mmol/L 3.5 - 5.1 mmol/L [facility] Comment on above: Plasma potassium ema ues may be up to 0.5 mmol/L lower than serum values. Protein [Mass/Vol] 6.2 g/dL Low 6.4 - 8.3 g/dL [facility] Sodium [Moles/Vol] 133 mmol/L Low 136 - 145 mmol/L [facility] Urea nitrogen [Mass/Vol] 12 mg/dL 8 - 21 mg/dL [facility] Laboratory - Chemistry and C hemistry - challengeon 12-04-2024 Magnesium [Mass/Vol] 1.7 mg/dL 1.6 - 2 .6 mg/dL [facility] Laboratory - Drug toxicology on 12-04-2024 PHENobarbital [Mass/Vol] 16.7 ug/mL 15.0 - 40.0 ug/mL [facility] MAGNESIUMon 12-04-2024 Magnesium [Mass/Vol] 1.7 mg/dL Normal 1.6-2.6 [facility] Comment on above: Result Comment: ORDE R COMMENTS:Higher values can be expected in females during menses. Performed By: #### L AB103, [id number] ####Representative [employer] Relations: JACK ORTIZ ([phone])[facility] ([facility])[address] [place] [address] [place] Magnesium [Mass/Vol]on 12-04 Higher values can be expected in females during menses. [facility] No Panel Informationon 12-04 Interpretation and review of laboratory results Normal [facility] Interpretation and review of laboratory results Normal [facility] PHENOBARBITALon 12-04-2024 PHENobarbital [Mass/Vol] 16.7 ug/mL Normal 15.0-40.0 [facility] Comment on above: Performed By: #### L AB17, LAB30 ####Represent[employer] Relations: JACK ORTIZ ([id number])[facility] ([facility])[address] [place] [address] PHOSPHORUSon 12-04-2024 Phosphate [Mass/Vol] 4.0 mg/dL Normal 2.3-4.7 [facility] Comment on above: Performed By: #### L AB103, [id number] ####Represent[employer] Relations: JACK ORTIZ ([phone])[facility] ([facility])[address] [place] [address] [place] Phosphate [Moles/Vol]on 11-16 Phosphate [Mass/Vol] 4 mg/dL 2.3 - 4 .7 mg/dL [facility] Progress Noteon 12-04-2024 Progress Note Normal [facility] Progress Note Normal [facility] [id number] 12-03-2024 [id number] Normal [facility] [id number] 12-03-[id number] [facility] 36on 12-03-2024 36 Scheduled patient fo r OV 12/25 at 8:30 with Steven Jacobs Also holding spot for colon/EGD 02/07/[address]an [facility] 36 Endo slot held for 10 w Felicita. However, may be too soon. Pt will need OV prior. Please use IP slot to accommodate. Thank you. Normal [facility] 36 Patient needs a repeat EGD in 8 weeks for large gastric ulcer, also needs a colonoscopy. [place] can you review openings? Thanks Normal [facility] Anesthesia Noteon 12-03-2024 Anesthesia Note Normal [facility] Anesthesia Note Normal [facility] CBC W Auto Differential pane l (Bld)on 12-03-2024 Basophils (Bld) [#/Vol] 0.1 10*3/uL 0.0 - 0.2 10*3/uL [facility] Basophils/100 WBC (Bld) 1.2 % 0.0 - 2.0 % [facility] Eosinophils (Bld) [#/Vol] 0.3 10*3/uL 0.0 - 0.5 10*3/uL [facility] Eosinophils/100 WBC (Bld) 4.7 % 0.0 - 6.0 % [facility] Erythrocyte distribution width (RBC) [Ratio] 22 % High 11.5 - 15.0 % [facility] Hematocrit (Bld) [Volume fraction] 30.2 % Low 40.0 - 52.0 % [facility] Hemoglobin (Bld) [Mass/Vol] 9.1 g/dL Low 13.0 - 18.0 g/dL [facility] Immature granulocytes (Bld) [#/Vol] 0 10*3/uL NINF - 0.1 10*3/uL [facility] Immature granulocytes/100 WBC (Bld) 0.6 % 0.0 - 2.0 % [facility] Interpretation and review of laboratory results Abnormal [facility] Lymphocytes (Bld) [#/Vol] 1.5 10*3/uL 1.0 - 4.3 10*3/uL [facility] Lymphocytes/100 WBC (Bld) 21.1 % 15.0 - 45.0 % [facility] MCH (RBC) [Entitic mass] 23 pg Low 26.0 - 34.0 pg [facility] MCHC (RBC) [Mass/Vol] 30.1 % Low 30.5 - 36.0 % [facility] MCV (RBC) [Entitic vol] 76.5 fL Low 77.0 - 99.0 fL [facility] Monocytes (Bld) [#/Vol] 0.5 10*3/uL 0.0 - 0.9 10*3/uL [facility] Monocytes/100 WBC (Bld) 6.3 % 5.0 - 13.0 % [facility] Neutrophils (Bld) [#/Vol] 4.8 10*3/uL 1.8 - 7.5 10*3/uL [facility] Neutrophils/100 WBC (Bld) 66.1 % 38.0 - 82.0 % [facility] Nucleated RBC/100 WBC (Bld) [Ratio] 0 % [facility] Platelet mean volume (Bld) [Entitic vol] 10.1 fL 9.0 - 12.7 fL [facility] Platelets (Bld) [#/Vol] 233 10*3/uL 140 - 440 10*3/uL [facility] RBC (Bld) [#/Vol] 3.95 10*6/uL Low 4.40 - 5.9 0 10*6/uL [facility] WBC (Bld) [#/Vol] 7.3 10*3/uL 3.6 - 10.7 10*3/uL [facility] CBC WITH AUTO DIFFERENTIALon 12-03-2024 Basophils (Bld) [#/Vol] 0.1 10*3/uL Normal 0.0-0.2 [facility] Comment on above: Performed By: #### L [id number] ####Represent[employer] Relations: JACK ORTIZ ([phone])[facility])[address] [place] [address] Basophils/100 WBC (Bld) 1.2 % Normal 0.0-2.0 [facility] Comment on above: Performed By: #### L [id number] ####Representative [employer] Relations: JACK ORTIZ ([phone])[facility] ([facility])[address] [place] [address] [place] Eosinophils (Bld) [#/Vol] 0.3 10*3/uL Normal 0.0-0.5 [facility] Comment on above: Performed By: #### L [id number] ####Represent[employer] Relations: JACK ORTIZ ([phone])[facility] ([facility])[address] [place] [address] [place] Eosinophils/100 WBC (Bld) 4.7 % Normal 0.0-6.0 [facility] Comment on above: Performed By: #### L [id number] ####[employer] Relations: JACK ORTIZ ([phone])[address] Erythrocyte distribution width (RBC) [Ratio] 22.0 % High 11.5-15.0 [facility] Comment on above: Performed By: #### L [id number] ####[employer]: JACK ORTIZ ([phone])[address] Hematocrit (Bld) [Volume fraction] 30.2 % Low 40.0-52.0 [facility] Comment on above: Performed By: #### L [id number] ####[employer] Relations: JACK ORTIZ ([phone])[address] Hemoglobin (Bld) [Mass/Vol] 9.1 g/dL Low 13.0-18.0 [facility] Comment on above: Performed By: #### L [id number] ####[employer]: JACK ORTIZ ([phone])[address] IMMATURE GRANS % 0.6 % Normal 0.0-2.0 [facility] Comment on above: Performed By: #### L [id number] ####[employer] Relations: JACK ORTIZ ([phone])[address] IMMATURE GRANS ABSOLUTE 0.0 10*3/uL Normal <0.1 [facility] Comment on above: Performed By: #### L [id number] ####[employer] Relations: JACK ORTIZ ([id number])[address] Lymphocytes (Bld) [#/Vol] 1.5 10*3/uL Normal 1.0-4.3 [facility] Comment on above: Performed By: #### L [id number] ####[employer] Relations: JACK ORTIZ ([id number])[facility])[address] [place] [address] Lymphocytes/100 WBC (Bld) 21.1 % Normal 15.0-45.0 [facility] Comment on above: Performed By: #### L [id number] ####[employer] Relations: JACK ORTIZ ([phone])[facility])[address] [place] [address] MCH (RBC) [Entitic mass] 23.0 pg Low 26.0-34.0 [facility] Comment on above: Performed By: #### L [id number] ####[employer] Relations: JACK ORTIZ ([id number])[facility])[address] [place] [address] MCHC 30.1 % Low 30.5-36.0 [facility] Comment on above: Performed By: #### L [id number] ####[employer] Relations: JACK ORTIZ ([phone])[facility])[address] [place] [address] MCV (RBC) [Entitic vol] 76.5 fL Low 77.0-99.0 [facility] Comment on above: Performed By: #### L [id number] ####[employer] Relations: JACK ORTIZ ([phone])[facility])[address] [place] [address] Monocytes (Bld) [#/Vol] 0.5 10*3/uL Normal 0.0-0.9 [facility] Comment on above: Performed By: #### L [id number] ####[employer] Relations: JACK ORTIZ ([id number])[facility])[address] [place] [address] Monocytes/100 WBC (Bld) 6.3 % Normal 5.0-13.0 [facility] Comment on above: Performed By: #### L [id number] ####[employer] Relations: JACK ORTIZ ([phone])[facility])[address] [place] [address] NEUTROPHILS ABSOLUTE 4.8 10*3/uL Normal 1.8-7.5 [facility] Comment on above: Performed By: #### L [id number] ####[employer] Relations: JACK ORTIZ ([id number])[facility] ([facility])[address] [place] [address] Neutrophils/100 WBC (Bld) 66.1 % Normal 38.0-82.0 [facility] Comment on above: Performed By: #### L [id number] ####Represent[employer] Relations: JACK ORTIZ ([phone])[facility] ([facility])[address] [place] [address] NRBC 0.0 /100 WBCs Normal 0.0-2.0 [facility] Comment on above: Performed By: #### L [id number] ####[employer] Relations: JACK ORTIZ ([id number])[facility] ([facility])[address] [place] [address] Platelet mean volume (Bld) [Entitic vol] 10.1 fL Normal 9.0-12.7 [facility] Comment on above: Performed By: #### L [id number] ####[employer] Relations: JACK ORTIZ ([phone])[facility] ([facility])[address] [place] [address] [place] Platelets (Bld) [#/Vol] 233 10*3/uL Normal 140-440 [facility] Comment on above: Performed By: #### L [id number] ####[employer] Relations: JACK ORTIZ ([phone])[facility] ([facility])[address] [place] [address] RBC (Bld) [#/Vol] 3.95 10*6/uL Low 4.40-5.90 [facility] Comment on above: Performed By: #### L [id number] ####[employer] Relations: AJCK ORTIZ ([phone])[facility] ([facility])[address] [place] [address] [place] WBC (Bld) [#/Vol] 7.3 10*3/uL Normal 3.6-10.7 [facility] Comment on above: Performed By: #### L [id number] ####[employer] Relations: JACK ORTIZ ([phone])[facility])[address] [place] [address] COMPREHENSIVE METABOLIC PANE Eduardo 12-03-2024 Albumin [Mass/Vol] 2.6 g/dL Low 3.5-5.0 [facility] Comment on above: Performed By: #### L [id number] ####[employer] Relations: JACK ORTIZ ([phone])[facility] ([facility])[address] [place] [address] ALP [Catalytic activity/Vol] 89 U/L Normal 40-150 [facility] Comment on above: Performed By: #### L [id number] ####[employer] Relations: JACK ORTIZ ([phone])[facility])[address] [place] [address] ALT [Catalytic activity/Vol] 12 U/L Normal <40 [facility] Comment on above: Performed By: #### L [id number] ####[employer] Relations: JACK ORTIZ ([id number])[facility] ([facility])[address] [place] [address] Anion gap [Moles/Vol] 9 mmol/L Normal 3-13 [facility] Comment on above: Performed By: #### L [id number] ####[employer]: JACK ORTIZ ([phone])[facility])[address] [place] [address] AST [Catalytic activity/Vol] 25 U/L Normal <34 [facility] Comment on above: Performed By: #### L AB17 ####[employer]: JACK ORTIZ ([id number])[facility])[address] [place] [address] Bilirubin [Mass/Vol] 0.3 mg/dL Normal <1.2 [facility] Comment on above: Performed By: #### L AB17 ####[employer] Relations: JACK ORTIZ ([id number])[facility] ([facility])[address] [place] [address] Calcium [Mass/Vol] 8.0 mg/dL Low 8.4-10.2 [facility] Comment on above: Performed By: #### L AB17 ####[employer] Relations: JACK ORTIZ ([id number])[facility])[address] [place] [address] Chloride [Moles/Vol] 101 mmol/L Normal 98-107 [facility] Comment on above: Performed By: #### L AB17 ####[employer] Relations: JACK ORTIZ ([phone])[facility] ([facility])[address] [place] [address] CO2 [Moles/Vol] 24 mmol/L Normal 22-29 [facility] Comment on above: Performed By: #### L AB17 ####[employer] Relations: JACK ORTIZ ([phone])[facility] ([facility])[address] [place] [address] Creatinine [Mass/Vol] 0.74 mg/dL Normal 0.72-1.25 [facility] Comment on above: Performed By: #### L AB17 ####[employer] Relations: JACK ORTIZ ([phone])[facility] ([facility])[address] [place] [address] GLOMERULAR FILTRATION RATE ML/MIN/1.73 SQ M.PREDICTED >90.0 Normal >60.0 [facility] Comment on above: Result Comment: Calc ulation based on the Chronic Kidney Disease Epidemiology Collaboration (CKD-EPI) equation refit without adjustment for race Performed By: #### L [id number] ####[employer]: JACK ORTIZ ([phone])[facility] ([facility])[address] [place] [address] [place] Glucose [Mass/Vol] 101 mg/dL High 74-100 [facility] Comment on above: Performed By: #### L [id number] ####[employer] Relations: JACK ORTIZ ([phone])[facility] ([facility])[address] [place] [address] Potassium [Moles/Vol] 4.4 mmol/L Normal 3.5-5.1 [facility] Comment on above: Result Comment: [facility] potassium values may be up to 0.5 mmol/L lower than serum values. Performed By: #### L AB17 ####[employer] Relations: JACK ORTIZ ([phone])[facility] ([facility])[address] [place] [address] Protein [Mass/Vol] 5.7 g/dL Low 6.4-8.3 [facility] Comment on above: Performed By: #### L AB17 ####[employer]: JACK ORTIZ ([phone])[facility])[address] [place] [address] Sodium [Moles/Vol] 134 mmol/L Low 136-145 [facility] Comment on above: Performed By: #### L AB17 ####[employer]: JACK ORTIZ ([id number])[facility])[address] [place] [address] Urea nitrogen [Mass/Vol] 15 mg/dL Normal 8-21 [facility] Comment on above: Performed By: #### L [id number] ####[employer]: JACK ORTIZ ([id number])[facility])[address] [place] [address] Albumin [Mass/Vol] 2.7 g/dL Low 3.5-5.0 [facility] Comment on above: Performed By: #### L AB68, LAB17 ####[employer]: JACK ORTIZ ([id number])[facility])[address] [place] [address] [place] ALP [Catalytic activity/Vol] 92 U/L Normal 40-150 [facility] Comment on above: Performed By: #### L AB68, LAB17 ####[employer]: JACK ORTIZ ([phone])[facility])[address] [place] [address] ALT [Catalytic activity/Vol] 11 U/L Normal <40 [facility] Comment on above: Performed By: #### L AB68, LAB17 ####[employer] Relations: JACK ORTIZ ([phone])[facility] [place] [address] Anion gap [Moles/Vol] 8 mmol/L Normal 3-13 [facility] Comment on above: Performed By: #### L AB68, LAB17 ####[employer] Relations: JACK ORTIZ ([id number])[facility] ([facility])[address] [place] [address] AST [Catalytic activity/Vol] 31 U/L Normal <34 [facility] Comment on above: Performed By: #### L AB68, LAB17 ####[employer] Relations: JACK ORTIZ ([id number])[facility] ([facility])[address] [place] [address] Bilirubin [Mass/Vol] 0.4 mg/dL Normal <1.2 [facility] Comment on above: Performed By: #### L ABNara, LAB17 ####Representative Government Relations: JACK ORTIZ ([phone])[facility] ([facility])[address] [place] [address] Calcium [Mass/Vol] 7.8 mg/dL Low 8.4-10.2 [facility] Comment on above: Performed By: #### L AB68, LAB17 ####Representative Government Relations: JACK ORTIZ ([phone])[facility] ([facility])[address] [place] [address] [place] Chloride [Moles/Vol] 100 mmol/L Normal 98-107 [facility] Comment on above: Performed By: #### L AB68, LAB17 ####Representative Government Relations: JACK ORTIZ ([phone])[facility] ([facility])[address] [place] [address] [place] CO2 [Moles/Vol] 23 mmol/L Normal 22-29 [facility] Comment on above: Performed By: #### L AB68, LAB17 ####Representative Government Relations: JACK ORTIZ ([phone])[facility] ([facility])[address] [place] [address] [place] Creatinine [Mass/Vol] 0.67 mg/dL Low 0.72-1.25 [facility] Comment on above: Performed By: #### Abdelrahman RESENDEZ, LAB17 ####Representative Government Relations: JACK ORTIZ ([phone])[facility])[address] [place] [address] GLOMERULAR FILTRATION RATE ML/MIN/1.73 SQ M.PREDICTED >90.0 Normal >60.0 [facility] Comment on above: Result Comment: Calc ulation based on the Chronic Kidney Disease Epidemiology Collaboration (CKD-EPI) equation refit without adjustment for race Performed By: #### Abdelrahman RESENDEZ, LAB17 ####Representative Government Relations: JACK ORTIZ ([phone])[facility])[address] [place] [address] Glucose [Mass/Vol] 83 mg/dL Normal 74-100 [facility] Comment on above: Performed By: #### Abdelrahman RESENDEZ, LAB17 ####Representative Government Relations: JACK ORTIZ ([phone])[facility])[address] [place] [address] Potassium [Moles/Vol] 3.9 mmol/L Normal 3.5-5.1 [facility] Comment on above: Result Comment: [facility] potassium values may be up to 0.5 mmol/L lower than serum values. Performed By: #### Abdelrahman RESENDEZ, LAB17 ####Representative Government Relations: JACK ORTIZ ([phone])[facility])[address] [place] [address] Protein [Mass/Vol] 5.9 g/dL Low 6.4-8.3 [facility] Comment on above: Performed By: #### L DIPTI, LAB17 ####Representative Government Relations: JACK ORTIZ ([phone])[facility])[address] [place] [address] Sodium [Moles/Vol] 131 mmol/L Low 136-145 [facility] Comment on above: Performed By: #### Abdelrahman RESENDEZ, LAB17 ####Representative Government Relations: JACK [phone])[facility])[address] [place] [address] Urea nitrogen [Mass/Vol] 14 mg/dL Normal 8-21 [facility] Comment on above: Performed By: #### L AB68, LAB17 ####Representative Government Relations: JACK ORTIZ ([phone])[facility] ([facility])[address] [place] [address] Albumin [Mass/Vol] 2.7 g/dL Low 3.5-5.0 [facility] Comment on above: Performed By: #### L AB103, LAB17, [id number] ####Representative Government Relations: JACK ORTIZ ([phone])[facility] ([facility])[address] [place] [address] ALP [Catalytic activity/Vol] 89 U/L Normal 40-150 [facility] Comment on above: Performed By: #### L AB103, LAB17, [id number] ####Representative Government Relations: JACK ORTIZ ([phone])[facility])[address] [place] [address] [place] ALT [Catalytic activity/Vol] 10 U/L Normal <40 [facility] Comment on above: Performed By: #### L AB103, LAB17, [id number] ####Representative Government Relations: JACK ORTIZ ([phone])[facility] ([facility])[address] [place] [address] Anion gap [Moles/Vol] 6 mmol/L Normal 3-13 [facility] Comment on above: Performed By: #### L AB103, LAB17, [id number] ####Representative Government Relations: JACK ORTIZ ([phone])[facility] ([facility])[address] [place] [address] [place] AST [Catalytic activity/Vol] 23 U/L Normal <34 [facility] Comment on above: Performed By: #### L AB103, LAB17, [id number] ####Representative Government Relations: JACK ORTIZ ([phone])[facility] ([facility])[address] [place] [address] Bilirubin [Mass/Vol] 0.3 mg/dL Normal <1.2 [facility] Comment on above: Performed By: #### Abdelrahman CASON, LAB17, [id number] ####Representative Government Relations: JACK ORTIZ ([phone])[facility])[address] [place] [address] Calcium [Mass/Vol] 8.1 mg/dL Low 8.4-10.2 [facility] Comment on above: Performed By: #### Abdelrahman CASON, LAB17, [id number] ####Representative Government Relations: JACK ORTIZ ([phone])[facility])[address] [place] [address] Chloride [Moles/Vol] 98 mmol/L Normal 98-107 [facility] Comment on above: Performed By: #### Abdelrahman CASON, LAB17, [id number] ####Representative Government Relations: JACK ORTIZ ([phone])[facility] ([facility])[address] [place] [address] CO2 [Moles/Vol] 25 mmol/L Normal 22-29 [facility] Comment on above: Performed By: #### Abdelrahman CASON, LAB17, [id number] ####Representative Government Relations: JACK ORTIZ ([phone])[facility])[address] [place] [address] Creatinine [Mass/Vol] 0.66 mg/dL Low 0.72-1.25 [facility] Comment on above: Performed By: #### Abdelrahman CASON, LAB17, [id number] ####Representative Government Relations: JACK ORTIZ ([phone])[facility])[address] [place] [address] GLOMERULAR FILTRATION RATE ML/MIN/1.73 SQ M.PREDICTED >90.0 Normal >60.0 [facility] Comment on above: Result Comment: Calc ulation based on the Chronic Kidney Disease Epidemiology Collaboration (CKD-EPI) equation refit without adjustment for race Performed By: #### L ABTho, LAB17, [id number] ####Representative Government Relations: JACK [phone])[facility] ([facility])[address] [place] [address] Glucose [Mass/Vol] 94 mg/dL Normal 74-100 [facility] Comment on above: Performed By: #### Abdelrahman CASON, LAB17, [id number] ####Representative Government Relations: JACK ORTIZ ([phone])[facility] ([facility])[address] [place] [address] Potassium [Moles/Vol] 4.0 mmol/L Normal 3.5-5.1 [facility] Comment on above: Result Comment: [facility] potassium values may be up to 0.5 mmol/L lower than serum values. Performed By: #### Abdelrahman CASON, LAB17, [id number] ####Representative Government Relations: JACK ORTIZ ([phone])[facility])[address] [place] [address] Protein [Mass/Vol] 5.8 g/dL Low 6.4-8.3 [facility] Comment on above: Performed By: #### Abdelrahman CASON, LAB17, [id number] ####Representative Government Relations: JACK ORTIZ ([phone])[facility] ([facility])[address] [place] [address] Sodium [Moles/Vol] 129 mmol/L Low 136-145 [facility] Comment on above: Performed By: #### Abdelrahman MOSES103, LAB17, [id number] ####Representative Government Relations: JACK ORTIZ ([phone])[facility])[address] [place] [address] Urea nitrogen [Mass/Vol] 15 mg/dL Normal 8-21 [facility] Comment on above: Performed By: #### L AB103, LAB17, [id number] ####Representative Government Relations: JACK ORTIZ ([phone])[facility])[address] [place] [address] Comprehensive metabolic 1998 panelon 12-03-2024 Albumin [Mass/Vol] 2.6 g/dL Low 3.5 - 5.0 g/dL [facility] ALP [Catalytic activity/Vol] 89 U/L 40 - 150 U/L [facility] ALT [Catalytic activity/Vol] 12 U/L NINF - 40 U/L [facility] Anion gap [Moles/Vol] 9 mmol/L 3 - 13 mmol/L [facility] AST [Catalytic activity/Vol] 25 U/L NINF - 34 U/L [facility] Bilirubin [Mass/Vol] 0.3 mg/dL NINF - 1.2 mg/dL [facility] Calcium [Mass/Vol] 8 mg/dL Low 8.4 - 10. 2 mg/dL [facility] Chloride [Moles/Vol] 101 mmol/L 98 - 10 7 mmol/L [facility] CO2 [Moles/Vol] 24 mmol/L 22 - 29 mmol/L [facility] Creatinine [Mass/Vol] 0.74 mg/dL 0.72 - 1.25 mg/dL [facility] GFR/1.73 sq M.predicted (S/P/Bld) [Vol rate/Area] - PINF [facility] Comment on above: Calculation based on the Chronic Kidney Disease Epidemiology Collaboration (CKD-EPI) equation refit without adjustment for race Glucose [Mass/Vol] 101 mg/dL High 74 - 100 mg/dL [facility] Interpretation and review of laboratory results Abnormal [facility] Potassium [Moles/Vol] 4.4 mmol/L 3.5 - 5.1 mmol/L [facility] Comment on above: Plasma potassium ema ues may be up to 0.5 mmol/L lower than serum values. Protein [Mass/Vol] 5.7 g/dL Low 6.4 - 8.3 g/dL [facility] Sodium [Moles/Vol] 134 mmol/L Low 136 - 145 mmol/L [facility] Urea nitrogen [Mass/Vol] 15 mg/dL 8 - 21 mg/dL [facility] Albumin [Mass/Vol] 2.7 g/dL Low 3.5 - 5.0 g/dL [facility] ALP [Catalytic activity/Vol] 92 U/L 40 - 150 U/L [facility] ALT [Catalytic activity/Vol] 11 U/L NINF - 40 U/L [facility] Anion gap [Moles/Vol] 8 mmol/L 3 - 13 mmol/L [facility] AST [Catalytic activity/Vol] 31 U/L NINF - 34 U/L [facility] Bilirubin [Mass/Vol] 0.4 mg/dL NINF - 1.2 mg/dL [facility] Calcium [Mass/Vol] 7.8 mg/dL Low 8.4 - 10. 2 mg/dL [facility] Chloride [Moles/Vol] 100 mmol/L 98 - 10 7 mmol/L [facility] CO2 [Moles/Vol] 23 mmol/L 22 - 29 mmol/L [facility] Creatinine [Mass/Vol] 0.67 mg/dL Low 0.72 - 1.25 mg/dL [facility] GFR/1.73 sq M.predicted (S/P/Bld) [Vol rate/Area] - PINF [facility] Comment on above: Calculation based on the Chronic Kidney Disease Epidemiology Collaboration (CKD-EPI) equation refit without adjustment for race Glucose [Mass/Vol] 83 mg/dL 74 - 100 mg/dL [facility] Interpretation and review of laboratory results Abnormal [facility] Potassium [Moles/Vol] 3.9 mmol/L 3.5 - 5.1 mmol/L [facility] Comment on above: Plasma potassium ema ues may be up to 0.5 mmol/L lower than serum values. Protein [Mass/Vol] 5.9 g/dL Low 6.4 - 8.3 g/dL [facility] Sodium [Moles/Vol] 131 mmol/L Low 136 - 145 mmol/L [facility] Urea nitrogen [Mass/Vol] 14 mg/dL 8 - 21 mg/dL [facility] Albumin [Mass/Vol] 2.7 g/dL Low 3.5 - 5.0 g/dL [facility] ALP [Catalytic activity/Vol] 89 U/L 40 - 150 U/L [facility] ALT [Catalytic activity/Vol] 10 U/L NINF - 40 U/L [facility] Anion gap [Moles/Vol] 6 mmol/L 3 - 13 mmol/L [facility] AST [Catalytic activity/Vol] 23 U/L NINF - 34 U/L [facility] Bilirubin [Mass/Vol] 0.3 mg/dL NINF - 1.2 mg/dL [facility] Calcium [Mass/Vol] 8.1 mg/dL Low 8.4 - 10. 2 mg/dL [facility] Chloride [Moles/Vol] 98 mmol/L 98 - 10 7 mmol/L [facility] CO2 [Moles/Vol] 25 mmol/L 22 - 29 mmol/L [facility] Creatinine [Mass/Vol] 0.66 mg/dL Low 0.72 - 1.25 mg/dL [facility] GFR/1.73 sq M.predicted (S/P/Bld) [Vol rate/Area] - PINF [facility] Comment on above: Calculation based on the Chronic Kidney Disease Epidemiology Collaboration (CKD-EPI) equation refit without adjustment for race Glucose [Mass/Vol] 94 mg/dL 74 - 100 mg/dL [facility] Interpretation and review of laboratory results Abnormal [facility] Potassium [Moles/Vol] 4 mmol/L 3.5 - 5.1 mmol/L [facility] Comment on above: Plasma potassium ema ues may be up to 0.5 mmol/L lower than serum values. Protein [Mass/Vol] 5.8 g/dL Low 6.4 - 8.3 g/dL [facility] Sodium [Moles/Vol] 129 mmol/L Low 136 - 145 mmol/L [facility] Urea nitrogen [Mass/Vol] 15 mg/dL 8 - 21 mg/dL [facility] FERRITINon 12-03-2024 Ferritin [Mass/Vol] 39 ng/mL Normal 22-275 [facility] Comment on above: Result Comment: PAGE Menezes COMMENTS:Ferritin levels below 10 ng/mL have been reported as indicative of iron deficiency anemia. Performed By: #### L AB68, LAB17 ####Representative Government Relations: JACK ORTIZ ([phone])[address] Ferritin [Mass/Vol]on 2024 Interpretation and review of laboratory results Normal [facility] Ferritin levels belo w 10 ng/mL have been reported as indicative of iron deficiency anemia. [facility] H. PYLORI STOOL ANTIGENon H. PYLORI STOOL ANTIGEN H. PYLORI STOOL AG Reference Not Detected Not Detected ORDER COMMENTS: Methodology: Enzyme Immunoassay Normal [facility] Comment on above: Performed By: #### L [id number] ####Representative Government Relations: JACK ORTIZ ([phone])[facility])[address] [place] [address] IRON AND TIBCon 12-03-2024 IRON BINDING CAPACITY 373 ug/dL Normal 250-450 [facility] Comment on above: Performed By: #### L [id number] ####Representative Government Relations: SALTY PRESCOTT ([phone])[facility])[address] IRON SATURATION 6.4 % Low 20.0-50.0 [facility] Comment on above: Performed By: #### L [id number] ####Representative Government Relations: SALTY KENYON ([phone])[facility] ([facility])[address] IRON, TOTAL 24 ug/dL Low 65-175 [facility] Comment on above: Result Comment: TCSi gnificant interference from hemolysis. Result integrity compromised. Interpret with caution. Performed By: #### L [id number] ####Representative Government Relations: SALTY PRESCOTT ([phone])[facility] ([facility])[address] [place] [address] Iron and Iron binding capaci ty panelon 12-03-2024 Interpretation and review of laboratory results Abnormal [facility] Iron [Mass/Vol] 24 ug/dL Low 65 - 175 ug/dL [facility] Comment on above: TC Significant interference from hemolysis. Result integrity compromised. Interpret with caution. Iron binding capacity [Mass/Vol] 373 ug/dL 250 - 450 ug/dL [facility] Iron saturation [Mass fraction] 6.4 % Low 20.0 - 50.0 % [facility] Laboratory - Chemistry and C hemistry - challengeon 12-03-2024 Ferritin [Mass/Vol] 39 ng/mL 22 - 275 ng/mL [facility] Magnesium [Mass/Vol] 1.7 mg/dL 1.6 - 2 .6 mg/dL [facility] MAGNESIUMon 12-03-2024 Magnesium [Mass/Vol] 1.7 mg/dL Normal 1.6-2.6 [facility] Comment on above: Result Comment: PAGE Menezes COMMENTS:Higher values can be expected in females during menses. Performed By: #### L AB103, LAB17, [id number] ####Representative Government Relations: JACK ORTIZ ([phone])[facility] ([id number] Magnesium [Mass/Vol]on 12-03 Higher values can be expected in females during menses. [facility] No Panel Informationon 12-03 Interpretation and review of laboratory results Normal [facility] Nursing Noteon 12-03-2024 Nursing Note Normal [facility] Nursing Note Normal [facility] Op Noteon 12-03-2024 Op Note Normal [facility] PHOSPHORUSon 12-03-2024 Phosphate [Mass/Vol] 4.0 mg/dL Normal 2.3-4.7 [facility] Comment on above: Performed By: #### L AB103, LAB17, [id number] ####Representative Government Relations: JACK ORTIZ ([phone])[facility])[address] [place] [address] Phosphate [Moles/Vol]on 11-16 Phosphate [Mass/Vol] 4 mg/dL 2.3 - 4 .7 mg/dL [facility] Progress Noteon 12-03-2024 Progress Note Normal [facility] 30on 12-02-2024 30 Seen in ICU. Doing fine . Less agitated . DW patient and mother about EGD in am due to history of PUD and abnormal CT. Alcohol cessation discussed. Continue PPI. More recommendation after EGD is done tomorrow Normal [facility] BUPRENORPHINE SCREENon 12-02 BUPRENORPHINE SCREEN-BUPR Positive Normal Negative [facility] Comment on above: Result Comment: PAGE Menezes COMMENTS:Buprenorphine (Suboxone) has been screened for by Immunoassay at 5 ng/mL threshold. POSITIVE results are not confirmed by a more specific alternative method unless requested. If confirmation is needed, request confirmation under separate order.NOTE: These results are for medical treatment only. Analysis performed using non-forensic procedures. Performed By: #### L [id number], [id number] ####Representative Government Relations: JACK ORTIZ ([phone])[facility] ([facility])[address] [place] [address] CBC W Auto Differential pane l (Bld)Ordered By: Raul Washington on 12-02-2024 Basophils (Bld) [#/Vol] 0.1 10*3/uL 0.0 - 0.2 10*3/uL [facility] Basophils/100 WBC (Bld) 1.2 % 0.0 - 2.0 % [facility] Eosinophils (Bld) [#/Vol] 0.2 10*3/uL 0.0 - 0.5 10*3/uL [facility] Eosinophils/100 WBC (Bld) 1.9 % 0.0 - 6.0 % [facility] Erythrocyte distribution width (RBC) [Ratio] 22.2 % High 11.5 - 15.0 % [facility] Hematocrit (Bld) [Volume fraction] 31.1 % Low 40.0 - 52.0 % [facility] Hemoglobin (Bld) [Mass/Vol] 9.5 g/dL Low 13.0 - 18.0 g/dL [facility] Immature granulocytes (Bld) [#/Vol] 0.1 10*3/uL High NINF - 0.1 10*3/uL [facility] Immature granulocytes/100 WBC (Bld) 0.6 % 0.0 - 2.0 % [facility] Interpretation and review of laboratory results Abnormal [facility] Lymphocytes (Bld) [#/Vol] 1.8 10*3/uL 1.0 - 4.3 10*3/uL [facility] Lymphocytes/100 WBC (Bld) 23.8 % 15.0 - 45.0 % [facility] MCH (RBC) [Entitic mass] 22.9 pg Low 26.0 - 34.0 pg [facility] MCHC (RBC) [Mass/Vol] 30.5 % 30.5 - 36.0 % [facility] MCV (RBC) [Entitic vol] 75.1 fL Low 77.0 - 99.0 fL [facility] Monocytes (Bld) [#/Vol] 0.4 10*3/uL 0.0 - 0.9 10*3/uL [facility] Monocytes/100 WBC (Bld) 5.7 % 5.0 - 13.0 % [facility] Neutrophils (Bld) [#/Vol] 5.2 10*3/uL 1.8 - 7.5 10*3/uL [facility] Neutrophils/100 WBC (Bld) 66.8 % 38.0 - 82.0 % [facility] Nucleated RBC/100 WBC (Bld) [Ratio] 0 % [facility] Platelet mean volume (Bld) [Entitic vol] 10.1 fL 9.0 - 12.7 fL [facility] Platelets (Bld) [#/Vol] 195 10*3/uL 140 - 440 10*3/uL [facility] RBC (Bld) [#/Vol] 4.14 10*6/uL Low 4.40 - 5.9 0 10*6/uL [facility] WBC (Bld) [#/Vol] 7.7 10*3/uL 3.6 - 10.7 10*3/uL [facility] CBC WITH AUTO DIFFERENTIALon 12-02-2024 Basophils (Bld) [#/Vol] 0.1 10*3/uL Normal 0.0-0.2 [facility] Comment on above: Performed By: #### L [id number] ####Representative Government Relations: JACK ORTIZ ([phone])[facility])[address] [place] [address] Basophils/100 WBC (Bld) 1.2 % Normal 0.0-2.0 [facility] Comment on above: Performed By: #### L [id number] ####Representative Government Relations: JACK ORTIZ ([phone])[facility])[address] [place] [address] Eosinophils (Bld) [#/Vol] 0.2 10*3/uL Normal 0.0-0.5 [facility] Comment on above: Performed By: #### L [id number] ####Representative Government Relations: JACK ORTIZ ([phone])[facility])[address] [place] [address] Eosinophils/100 WBC (Bld) 1.9 % Normal 0.0-6.0 [facility] Comment on above: Performed By: #### L [id number] ####Representative Government Relations: JACK ORTIZ ([phone])[facility])[address] [place] [address] Erythrocyte distribution width (RBC) [Ratio] 22.2 % High 11.5-15.0 [facility] Comment on above: Performed By: #### L [id number] ####Representative Government Relations: JACK ORTIZ ([phone])[facility])[address] [place] [address] Hematocrit (Bld) [Volume fraction] 31.1 % Low 40.0-52.0 [facility] Comment on above: Performed By: #### L [id number] ####Representative Government Relations: JACK ORTIZ ([phone])[facility])[address] [place] [address] Hemoglobin (Bld) [Mass/Vol] 9.5 g/dL Low 13.0-18.0 [facility] Comment on above: Performed By: #### L [id number] ####Representative Government Relations: JACK ORTIZ ([phone])[facility])[address] [place] [address] IMMATURE GRANS % 0.6 % Normal 0.0-2.0 [facility] Comment on above: Performed By: #### L [id number] ####Representative Government Relations: JACK ORTIZ ([phone])[facility])[address] [place] [address] IMMATURE GRANS ABSOLUTE 0.1 10*3/uL High <0.1 [facility] Comment on above: Performed By: #### L [id number] ####Representative Government Relations: JACK ORTIZ ([phone])[facility])[address] [place] [address] Lymphocytes (Bld) [#/Vol] 1.8 10*3/uL Normal 1.0-4.3 [facility] Comment on above: Performed By: #### L [id number] ####Representative Government Relations: JACK ORTIZ ([phone])[facility])[address] [place] [address] Lymphocytes/100 WBC (Bld) 23.8 % Normal 15.0-45.0 [facility] Comment on above: Performed By: #### L [id number] ####Representative Government Relations: JACK ORTIZ ([phone])[facility] [place] [address] MCH (RBC) [Entitic mass] 22.9 pg Low 26.0-34.0 [facility] Comment on above: Performed By: #### L [id number] ####Representative Government Relations: JACK ORTIZ ([phone])[facility])[address] [place] [address] MCHC 30.5 % Normal 30.5-36.0 [facility] Comment on above: Performed By: #### L [id number] ####Representative Government Relations: JACK ORTIZ ([phone])[facility])[address] [place] [address] MCV (RBC) [Entitic vol] 75.1 fL Low 77.0-99.0 [facility] Comment on above: Performed By: #### L [id number] ####Representative Government Relations: JACK ORTIZ ([phone])[facility])[address] [place] [address] Monocytes (Bld) [#/Vol] 0.4 10*3/uL Normal 0.0-0.9 [facility] Comment on above: Performed By: #### L [id number] ####Representative Government Relations: JACK ORTIZ ([phone])[facility])[address] [place] [address] Monocytes/100 WBC (Bld) 5.7 % Normal 5.0-13.0 [facility] Comment on above: Performed By: #### L [id number] ####Representative Government Relations: JACK ORTIZ ([phone])[facility])[address] [place] [address] NEUTROPHILS ABSOLUTE 5.2 10*3/uL Normal 1.8-7.5 [facility] Comment on above: Performed By: #### L [id number] ####Representative Government Relations: JACK ORTIZ ([phone])[facility])[address] [place] [address] Neutrophils/100 WBC (Bld) 66.8 % Normal 38.0-82.0 [facility] Comment on above: Performed By: #### L [id number] ####Representative Government Relations: JACK ORTIZ ([phone])[facility])[address] [place] [address] NRBC 0.0 /100 WBCs Normal 0.0-2.0 [facility] Comment on above: Performed By: #### L [id number] ####Representative Government Relations: JACK ORTIZ ([phone])[facility] ([facility])[address] [place] [address] Platelet mean volume (Bld) [Entitic vol] 10.1 fL Normal 9.0-12.7 [facility] Comment on above: Performed By: #### L [id number] ####Representative Government Relations: JACK ORTIZ ([phone])[facility] ([facility])[address] [place] [address] Platelets (Bld) [#/Vol] 195 10*3/uL Normal 140-440 [facility] Comment on above: Performed By: #### L [id number] ####Representative Government Relations: JACK ORTIZ ([phone])[facility] ([facility])[address] [place] [address] RBC (Bld) [#/Vol] 4.14 10*6/uL Low 4.40-5.90 [facility] Comment on above: Performed By: #### L [id number] ####Representative Government Relations: JACK ORTIZ ([phone])[facility] ([facility])[address] [place] [address] WBC (Bld) [#/Vol] 7.7 10*3/uL Normal 3.6-10.7 [facility] Comment on above: Performed By: #### L [id number] ####Representative Government Relations: JACK ORTIZ ([phone])[facility] ([facility])[address] [place] [address] COMPREHENSIVE METABOLIC PANE Eduardo 12-02-2024 Albumin [Mass/Vol] 2.8 g/dL Low 3.5-5.0 [facility] Comment on above: Performed By: #### L AB129, LAB17, LAB61 ####Representative Government Relations: JACK ORTIZ ([phone])[facility] ([facility])[address] [place] [address] ALP [Catalytic activity/Vol] 100 U/L Normal 40-150 [facility] Comment on above: Performed By: #### Abdelrahman AB129, LAB17, LAB61 ####Representative Government Relations: JACK ORTIZ ([phone])[facility] ([facility])[address] [place] [address] ALT [Catalytic activity/Vol] 15 U/L Normal <40 [facility] Comment on above: Performed By: #### Abdelrahman MOSES129, LAB17, LAB61 ####Representative Government Relations: JACK ORTIZ ([phone])[facility] ([facility])[address] [place] [address] Anion gap [Moles/Vol] 11 mmol/L Normal 3-13 [facility] Comment on above: Performed By: #### Abdelrahman AB129, LAB17, LAB61 ####Representative Government Relations: JACK ORTIZ ([phone])[facility] ([facility])[address] [place] [address] AST [Catalytic activity/Vol] 30 U/L Normal <34 [facility] Comment on above: Performed By: #### Abdelrahman AB129, LAB17, LAB61 ####Representative Government Relations: JACK ORTIZ ([phone])[facility] ([facility])[address] [place] [address] Bilirubin [Mass/Vol] 0.4 mg/dL Normal <1.2 [facility] Comment on above: Performed By: #### Abdelrahman AB129, LAB17, LAB61 ####Representative Government Relations: JACK ORTIZ ([phone])[facility])[address] [place] [address] Calcium [Mass/Vol] 8.1 mg/dL Low 8.4-10.2 [facility] Comment on above: Performed By: #### Abdelrahman AB129, LAB17, LAB61 ####Represent[employer] Relations: JACK ORTIZ ([phone])[facility] ([facility])[address] [place] [address] [place] Chloride [Moles/Vol] 97 mmol/L Low 98-107 [facility] Comment on above: Performed By: #### Abdelrahman AB129, LAB17, LAB61 ####Representative Government Relations: JACK ORTIZ ([phone])[facility] ([facility])[address] [place] [address] CO2 [Moles/Vol] 25 mmol/L Normal 22-29 [facility] Comment on above: Performed By: #### Abdelrahman CARBAJAL, LAB17, LAB61 ####Representative Government Relations: JACK ORTIZ ([phone])[facility])[address] [place] [address] Creatinine [Mass/Vol] 0.71 mg/dL Low 0.72-1.25 [facility] Comment on above: Performed By: #### Abdelrahman CARBAJAL, LAB17, LAB61 ####Representative Government Relations: JACK ORTIZ ([phone])[facility] ([facility])[address] [place] [address] GLOMERULAR FILTRATION RATE ML/MIN/1.73 SQ M.PREDICTED >90.0 Normal >60.0 [facility] Comment on above: Result Comment: Calc ulation based on the Chronic Kidney Disease Epidemiology Collaboration (CKD-EPI) equation refit without adjustment for race Performed By: #### Abdelrahman CARBAJAL, LAB17, LAB61 ####Representative [employer] Relations: JACK ORTIZ ([phone])[facility] ([facility])[address] [place] [address] Glucose [Mass/Vol] 101 mg/dL High 74-100 [facility] Comment on above: Performed By: #### Abdelrahman MOSES129, LAB17, LAB61 ####Representative Government Relations: JACK ORTIZ ([phone])[facility])[address] [place] [address] [place] Potassium [Moles/Vol] 3.7 mmol/L Normal 3.5-5.1 [facility] Comment on above: Result Comment: Plas ma potassium values may be up to 0.5 mmol/L lower than serum values. Performed By: #### L AB129, LAB17, LAB61 ####Representative Government Relations: JACK ORTIZ ([phone])[facility])[address] [place] [address] Protein [Mass/Vol] 6.1 g/dL Low 6.4-8.3 [facility] Comment on above: Performed By: #### L AB129, LAB17, LAB61 ####Representative Government Relations: JACK ORTIZ ([phone])[facility] ([facility])[address] [place] [address] Sodium [Moles/Vol] 133 mmol/L Low 136-145 [facility] Comment on above: Performed By: #### L AB129, LAB17, LAB61 ####Representative Government Relations: JACK ORTIZ ([phone])[facility] ([facility])[address] [place] [address] Urea nitrogen [Mass/Vol] 15 mg/dL Normal 8-21 [facility] Comment on above: Performed By: #### Abdelrahman AB129, LAB17, LAB61 ####Representative Government Relations: JACK ORTIZ ([phone])[facility])[address] [place] [address] Albumin [Mass/Vol] 2.6 g/dL Low 3.5-5.0 [facility] Comment on above: Performed By: #### L AB17, MLL493, [id number] ####Representative Government Relations: JACK ORTIZ ([phone])[facility] ([facility])[address] [place] [address] [place] ALP [Catalytic activity/Vol] 94 U/L Normal 40-150 [facility] Comment on above: Performed By: #### L AB17, [id number], OFX641 ####Representative Government Relations: JACK ORTIZ ([phone])[facility])[address] [place] [address] [place] ALT [Catalytic activity/Vol] 9 U/L Normal <40 [facility] Comment on above: Performed By: #### L AB17, [id number], [id number] ####Representative Government Relations: JACK ORTIZ ([phone])[facility] ([facility])[address] [place] [address] Anion gap [Moles/Vol] 8 mmol/L Normal 3-13 [facility] Comment on above: Performed By: #### L AB17, EMW039, CZS625 ####Representative Government Relations: JACK ORTIZ ([phone])[facility] ([facility])[address] [place] [address] AST [Catalytic activity/Vol] 26 U/L Normal <34 [facility] Comment on above: Performed By: #### L AB17, [id number], [id number] ####Representative Government Relations: JACK ORTIZ ([phone])[facility] ([facility])[address] [place] [address] Bilirubin [Mass/Vol] 0.4 mg/dL Normal <1.2 [facility] Comment on above: Performed By: #### L AB17, [id number], PIM251 ####Representative Government Relations: JACK ORTIZ ([phone])[facility] ([facility])[address] [place] [address] Calcium [Mass/Vol] 7.8 mg/dL Low 8.4-10.2 [facility] Comment on above: Performed By: #### L AB17, ZLT559, [id number] ####Representative Government Relations: JACK ORTIZ ([phone])[facility] ([facility])[address] [place] [address] [place] Chloride [Moles/Vol] 99 mmol/L Normal 98-107 [facility] Comment on above: Performed By: #### L AB17, MGH805, [id number] ####Representative Government Relations: JACK ORTIZ ([phone])[facility])[address] [place] [address] CO2 [Moles/Vol] 23 mmol/L Normal 22-29 [facility] Comment on above: Performed By: #### L AB17, [id number], NUO080 ####Representative Government Relations: JACK ORTIZ ([phone])[facility])[address] [place] [address] Creatinine [Mass/Vol] 0.70 mg/dL Low 0.72-1.25 [facility] Comment on above: Performed By: #### L AB17, TOC632, [id number] ####Representative Government Relations: JACK ORTIZ ([phone])[facility])[address] [place] [address] GLOMERULAR FILTRATION RATE ML/MIN/1.73 SQ M.PREDICTED >90.0 Normal >60.0 [facility] Comment on above: Result Comment: Calc ulation based on the Chronic Kidney Disease Epidemiology Collaboration (CKD-EPI) equation refit without adjustment for race Performed By: #### L AB17, [id number], [id number] ####Representative Government Relations: JACK ORTIZ ([phone])[facility])[address] [place] [address] Glucose [Mass/Vol] 121 mg/dL High 74-100 [facility] Comment on above: Performed By: #### L AB17, GCB055, LQI263 ####Representative Government Relations: JACK ORTIZ ([phone])[facility])[address] [place] [address] Potassium [Moles/Vol] 2.7 mmol/L Low 3.5-5.1 [facility] Comment on above: Result Comment: [facility] potassium values may be up to 0.5 mmol/L lower than serum values. Performed By: #### L AB17, [id number], RAF456 ####Representative Government Relations: JACK ORTIZ ([phone])[facility] ([facility])[address] [place] [address] Protein [Mass/Vol] 5.7 g/dL Low 6.4-8.3 [facility] Comment on above: Performed By: #### L AB17, CTW216, [id number] ####Representative Government Relations: JACK ORTIZ ([phone])[facility])[address] [place] [address] [place] Sodium [Moles/Vol] 130 mmol/L Low 136-145 [facility] Comment on above: Performed By: #### L AB17, MOR848, FWF486 ####Representative Government Relations: JACK ORTIZ ([phone])[facility])[address] [place] [address] Urea nitrogen [Mass/Vol] 15 mg/dL Normal 8-21 [facility] Comment on above: Performed By: #### L AB17, PLN369, QZQ520 ####Representative Government Relations: JACK ORTIZ ([phone])[facility] ([facility])[address] [place] [address] CORTISOLon 12-02-2024 CORTISOL 4.4 ug/dL Normal 3.7-19.4 [facility] Comment on above: Result Comment: ORDE R COMMENTS:Before 10am 4.5-22.7 ug/dLAfter 5pm 1.7-14.1 ug/dL Performed By: #### L AB129, LAB17, LAB61 ####Representative Government Relations: JACK ORTIZ ([phone])[facility] ([facility])[address] [place] [address] Comprehensive metabolic 1998 panelOrdered By: Eboni Laughlin on 12-02-2024 Albumin [Mass/Vol] 2.8 g/dL Low 3.5 - 5.0 g/dL [facility] ALP [Catalytic activity/Vol] 100 U/L 40 - 150 U/L [facility] ALT [Catalytic activity/Vol] 15 U/L NINF - 40 U/L [facility] Anion gap [Moles/Vol] 11 mmol/L 3 - 13 mmol/L [facility] AST [Catalytic activity/Vol] 30 U/L NINF - 34 U/L [facility] Bilirubin [Mass/Vol] 0.4 mg/dL NINF - 1.2 mg/dL [facility] Calcium [Mass/Vol] 8.1 mg/dL Low 8.4 - 10. 2 mg/dL [facility] Chloride [Moles/Vol] 97 mmol/L Low 98 - 10 7 mmol/L [facility] CO2 [Moles/Vol] 25 mmol/L 22 - 29 mmol/L [facility] Creatinine [Mass/Vol] 0.71 mg/dL Low 0.72 - 1.25 mg/dL [facility] GFR/1.73 sq M.predicted (S/P/Bld) [Vol rate/Area] - [facility] Comment on above: Calculation based on the Chronic Kidney Disease Epidemiology Collaboration (CKD-EPI) equation refit without adjustment for race Glucose [Mass/Vol] 101 mg/dL High 74 - 100 mg/dL [facility] Interpretation and review of laboratory results Abnormal [facility] Potassium [Moles/Vol] 3.7 mmol/L 3.5 - 5.1 mmol/L [facility] Comment on above: Plasma potassium ema ues may be up to 0.5 mmol/L lower than serum values. Protein [Mass/Vol] 6.1 g/dL Low 6.4 - 8.3 g/dL [facility] Sodium [Moles/Vol] 133 mmol/L Low 136 - 145 mmol/L [facility] Urea nitrogen [Mass/Vol] 15 mg/dL 8 - 21 mg/dL [facility] Comprehensive metabolic 1998 panelon 12-02-2024 Albumin [Mass/Vol] 2.6 g/dL Low 3.5 - 5.0 g/dL [facility] ALP [Catalytic activity/Vol] 94 U/L 40 - 150 U/L [facility] ALT [Catalytic activity/Vol] 9 U/L [facility] - 40 U/L [facility] Anion gap [Moles/Vol] 8 mmol/L 3 - 13 mmol/L [facility] AST [Catalytic activity/Vol] 26 U/L [facility] - 34 U/L [facility] Bilirubin [Mass/Vol] 0.4 mg/dL [facility] - 1.2 mg/dL [facility] Calcium [Mass/Vol] 7.8 mg/dL Low 8.4 - 10. 2 mg/dL [facility] Chloride [Moles/Vol] 99 mmol/L 98 - 10 7 mmol/L [facility] CO2 [Moles/Vol] 23 mmol/L 22 - 29 mmol/L [facility] Creatinine [Mass/Vol] 0.7 mg/dL Low 0.72 - 1.25 mg/dL [facility] GFR/1.73 sq M.predicted (S/P/Bld) [Vol rate/Area] - PINF [facility] Comment on above: Calculation based on the Chronic Kidney Disease Epidemiology Collaboration (CKD-EPI) equation refit without adjustment for race Glucose [Mass/Vol] 121 mg/dL High 74 - 100 mg/dL [facility] Interpretation and review of laboratory results Abnormal [facility] Potassium [Moles/Vol] 2.7 mmol/L Low 3.5 - 5.1 mmol/L [facility] Comment on above: Plasma potassium ema ues may be up to 0.5 mmol/L lower than serum values. Protein [Mass/Vol] 5.7 g/dL Low 6.4 - 8.3 g/dL [facility] Sodium [Moles/Vol] 130 mmol/L Low 136 - 145 mmol/L [facility] Urea nitrogen [Mass/Vol] 15 mg/dL 8 - 21 mg/dL [facility] ETHYL GLUCURONIDE SCREEN, UR INEon 12-02-2024 ETHYL GLUCURONIDE, URINE Positive Normal Negative [facility] Comment on above: Result Comment: PAGE Menezes COMMENTS:Ethyl Glucuronide has been screened by Immunoassay at a 500 ng/mL threshold. POSITIVE results are not confirmed by a more specific alternative method unless requested. If confirmation is needed, request confirmation under separate order.NOTE: These results are for medical treatment only. Analysis performed using non-forensic procedures.This test has not been cleared by the [place] Food and Drug Administration (FDA). The FDA has determined that such clearance or approval is not necessary. The performance characteristics have been determined by the clinical laboratories of [facility]. Performed By: #### L [id number], [id number] ####Representative Government Relations: JACK ORTIZ ([phone])[facility] ([address] Laboratory - Chemistry and C hemistry - challengeon 12-02-2024 Sodium (24H U) [Mass/Vol] 87 mmol/L [facility] Cortisol [Mass/Vol] 4.4 ug/dL 3.7 - 19 .4 ug/dL [facility] TSH Qn 3.07 m[IU]/L [facility] Magnesium [Mass/Vol] 1.7 mg/dL 1.6 - 2 .6 mg/dL [facility] Laboratory - Chemistry and C hemistry - challengeOrdered By: Shaye Ramirez on 12-02-2024 Osmolality [Osmolality] 279 mosm/kg Low [facility] MAGNESIUMon 12-02-2024 Magnesium [Mass/Vol] 1.7 mg/dL Normal 1.6-2.6 [facility] Comment on above: Result Comment: PAGE Menezes COMMENTS:Higher values can be expected in females during menses. Performed By: #### L AB17, [id number], [id number] ####Representative Government Relations: JACK ORTIZ ([phone])[facility] ([facility] [place] [address] Magnesium [Mass/Vol]on 12-02 Higher values can be expected in females during menses. [facility] [employer] No Panel InformationOrdered By: Whitney Sheikh on 12-02-2024 ETHYL GLUCURONIDE, URINE Positive Negative [facility] Ethyl Glucuronide nuñez s been screened by Immunoassay at a 500 ng/mL threshold. POSITIVE results are not confirmed by a more specific alternative method unless requested. If confirmation is needed, request confirmation under separate order. NOTE: These results are for medical treatment only. Analysis performed using non-forensic procedures. This test has not been cleared by the [place] Food and Drug Administration (FDA). The FDA has determined that such clearance or approval is not necessary. The performance characteristics have been determined by the clinical laboratories of [facility]. [facility] [employer] No Panel Informationon 12-02 BUPRENORPHINE SCREEN Positive Negative [facility] Buprenorphine (Suboxone) has been screened for by Immunoassay at 5 ng/mL threshold. POSITIVE results are not confirmed by a more specific alternative method unless requested. If confirmation is needed, request confirmation under separate order. NOTE: These results are for medical treatment only. Analysis performed using non-forensic procedures. [facility] CREATININE, URINE 236.8 mg/dL High 63.0 - 166 .0 mg/dL [facility] Interpretation and review of laboratory results Abnormal [facility] SODIUM, URINE, FRACTIONAL EXCRETION 0.2 [facility] SODIUM, URINE, TUBULAR REABSORPTION 1 [facility] Interpretation and review of laboratory results Normal [facility] OSMOLALITY, URINE [facility] Interpretation and review of laboratory results Normal [facility] Before 10am 4.5-22.7 ug/dL After 5pm 1.7-14.1 ug/dL [facility] Interpretation and review of laboratory results Normal [facility] No Panel InformationOrdered By: Shaye Ramirez on 12-02-2024 Interpretation and review of laboratory results Abnormal [facility] OSMOLALITY, SERUMon 12-03-19 25 OSMOLALITY, SERUM 279 mOsm/kg Low 280-300 [facility] Comment on above: Performed By: #### L [id number] ####Representative Government Relations: JACK ORTIZ ([phone])[facility] ([facility])[address] [place] [address] [place] OSMOLALITY, URINEon 12-03-19 25 OSMOLALITY, URINE 581 mOsm/kg Normal 300-1000 [facility] Comment on above: Performed By: #### L [id number], [id number] ####Representative Government Relations: JACK ORTIZ ([phone])[facility] ([facility])[address] [place] [address] [place] PHOSPHORUSon 12-02-2024 Phosphate [Mass/Vol] 3.3 mg/dL Normal 2.3-4.7 [facility] Comment on above: Performed By: #### L AB17, [id number], [id number] ####Representative Government Relations: JACK ORTIZ ([phone])[facility] ([facility])[address] [place] [address] [place] Phosphate [Moles/Vol]on 11-16 Phosphate [Mass/Vol] 3.3 mg/dL 2.3 - 4 .7 mg/dL [facility] Progress Noteon 12-02-2024 Progress Note Normal [facility] Progress Note Normal [facility] Progress Note Normal [facility] SODIUM, URINE, RANDOMon 11-16 CREATININE, URINE 236.8 mg/dL High 63.0-166.0 [facility] Comment on above: Performed By: #### L AB420, [id number] ####Representative Government Relations: JACK ORTIZ ([phone])[facility])[address] [place] [address] Sodium (U) [Moles/Vol] 87 mmol/L Normal [facility] Comment on above: Performed By: #### L AB420, [id number] ####Representative Government Relations: JACK ORTIZ ([phone])[facility] ([facility])[address] [place] [address] SODIUM, URINE, FRACTIONAL EXCRETION 0.2 Normal [facility] Comment on above: Performed By: #### L AB420, [id number] ####Representative Government Relations: JACK ORTIZ ([phone])[facility] ([facility])[address] [place] [address] SODIUM, URINE, TUBULAR REABSORPTION 1.0 Normal [facility] Comment on above: Performed By: #### L AB420, [id number] ####Representative Government Relations: JACK ORTIZ ([phone])[facility] ([facility])[address] [place] [address] THYROID STIMULATING HORMONEo n 12-02-2024 THYROID STIMULATING HORMONE 3.07 uIU/mL Normal 0.35-4.94 [facility] Comment on above: Performed By: #### L AB129, LAB17, LAB61 ####Representative Government Relations: JACK ORTIZ ([phone])[facility])[address] [place] [address] [id number] 12-01-2024 [id number] Normal [facility] BASIC METABOLIC PANELon 11-16 Anion gap [Moles/Vol] 9 mmol/L Normal 3-13 [facility] Comment on above: Performed By: #### L AB113, [id number], LAB15 ####Representative Government Relations: JACK ORTIZ ([phone])[facility])[address] [place] [address] Calcium [Mass/Vol] 8.0 mg/dL Low 8.4-10.2 [facility] Comment on above: Performed By: #### L AB113, [id number], LAB15 ####Representative Government Relations: JACK ORTIZ ([phone])[facility] ([facility])[address] [place] [address] Chloride [Moles/Vol] 103 mmol/L Normal 98-107 [facility] Comment on above: Performed By: #### L AB113, [id number], LAB15 ####Representative Government Relations: JACK ORTIZ ([phone])[facility])[address] [place] [address] CO2 [Moles/Vol] 22 mmol/L Normal 22-29 [facility] Comment on above: Performed By: #### L AB113, [id number], LAB15 ####Representative Government Relations: JACK ORTIZ ([phone])[facility])[address] [place] [address] Creatinine [Mass/Vol] 0.70 mg/dL Low 0.72-1.25 [facility] Comment on above: Performed By: #### L AB113, [id number], LAB15 ####Representative Government Relations: JACK ORTIZ ([phone])[facility])[address] [place] [address] GLOMERULAR FILTRATION RATE ML/MIN/1.73 SQ M.PREDICTED >90.0 Normal >60.0 [facility] Comment on above: Result Comment: Calc ulation based on the Chronic Kidney Disease Epidemiology Collaboration (CKD-EPI) equation refit without adjustment for race Performed By: #### L AB113, [id number], LAB15 ####Representative Government Relations: JACK ORTIZ ([id number])[facility])[address] [place] [address] Glucose [Mass/Vol] 120 mg/dL High 74-100 [facility] Comment on above: Performed By: #### L AB113, [id number], LAB15 ####Representative Government Relations: JACK ORTIZ ([phone])[facility])[address] [place] [address] Potassium [Moles/Vol] 3.2 mmol/L Low 3.5-5.1 [facility] Comment on above: Result Comment: [facility] potassium values may be up to 0.5 mmol/L lower than serum values. Performed By: #### L AB113, [id number], LAB15 ####Representative Government Relations: JACK ORTIZ ([phone])[facility])[address] [place] [address] Sodium [Moles/Vol] 134 mmol/L Low 136-145 [facility] Comment on above: Performed By: #### L AB113, [id number], LAB15 ####Representative Government Relations: JACK ORTIZ ([phone])[facility] ([facility])[address] [place] [address] Urea nitrogen [Mass/Vol] 13 mg/dL Normal 8-21 [facility] Comment on above: Performed By: #### L AB113, [id number], LAB15 ####Representative Government Relations: JACK ORTIZ ([phone])[facility] ([facility])[address] [place] [address] Basic metabolic 1998 panelon 12-01-2024 Anion gap [Moles/Vol] 9 mmol/L 3 - 13 mmol/L [facility] [employer] Calcium [Mass/Vol] 8 mg/dL Low 8.4 - 10. 2 mg/dL [facility] [employer] Chloride [Moles/Vol] 103 mmol/L 98 - 10 7 mmol/L [facility] CO2 [Moles/Vol] 22 mmol/L 22 - 29 mmol/L [facility] Creatinine [Mass/Vol] 0.7 mg/dL Low 0.72 - 1.25 mg/dL [facility] [employer] GFR/1.73 sq M.predicted (S/P/Bld) [Vol rate/Area] - PINF [facility] Comment on above: Calculation based on the Chronic Kidney Disease Epidemiology Collaboration (CKD-EPI) equation refit without adjustment for race Glucose [Mass/Vol] 120 mg/dL High 74 - 100 mg/dL [facility] [employer] Potassium [Moles/Vol] 3.2 mmol/L Low 3.5 - 5.1 mmol/L [facility] Comment on above: Plasma potassium ema ues may be up to 0.5 mmol/L lower than serum values. Sodium [Moles/Vol] 134 mmol/L Low 136 - 145 mmol/L [facility] [employer] Urea nitrogen [Mass/Vol] 13 mg/dL 8 - 21 mg/dL [facility] [facility] CBC W Auto Differential pane l (Bld)Ordered By: Shaye Ding on 12-01-2024 Basophils (Bld) [#/Vol] 0.1 10*3/uL 0.0 - 0.2 10*3/uL [facility] [employer] Basophils/100 WBC (Bld) 0.6 % 0.0 - 2.0 % [facility] Eosinophils (Bld) [#/Vol] 0 10*3/uL 0.0 - 0.5 10*3/uL [facility] Eosinophils/100 WBC (Bld) 0.3 % 0.0 - 6.0 % [facility] Erythrocyte distribution width (RBC) [Ratio] 22.6 % High 11.5 - 15.0 % [facility] Hematocrit (Bld) [Volume fraction] 34.5 % Low 40.0 - 52.0 % [facility] Hemoglobin (Bld) [Mass/Vol] 10.8 g/dL Low 13.0 - 18.0 g/dL [facility] Immature granulocytes (Bld) [#/Vol] 0 10*3/uL NINF - 0.1 10*3/uL [facility] Immature granulocytes/100 WBC (Bld) 0.4 % 0.0 - 2.0 % [facility] Interpretation and review of laboratory results Abnormal [facility] Lymphocytes (Bld) [#/Vol] 1.3 10*3/uL 1.0 - 4.3 10*3/uL [facility] Lymphocytes/100 WBC (Bld) 12.4 % Low 15.0 - 45.0 % [facility] MCH (RBC) [Entitic mass] 23 pg Low 26.0 - 34.0 pg [facility] MCHC (RBC) [Mass/Vol] 31.3 % 30.5 - 36.0 % [facility] MCV (RBC) [Entitic vol] 73.6 fL Low 77.0 - 99.0 fL [facility] Monocytes (Bld) [#/Vol] 0.5 10*3/uL 0.0 - 0.9 10*3/uL [facility] Monocytes/100 WBC (Bld) 5 % 5.0 - 13.0 % [facility] Neutrophils (Bld) [#/Vol] 8.3 10*3/uL High 1.8 - 7.5 10*3/uL [facility] Neutrophils/100 WBC (Bld) 81.3 % 38.0 - 82.0 % [facility] Nucleated RBC/100 WBC (Bld) [Ratio] 0 % [facility] [employer] Platelet mean volume (Bld) [Entitic vol] 9.9 fL 9.0 - 12.7 fL [facility] Platelets (Bld) [#/Vol] 235 10*3/uL 140 - 440 10*3/uL [facility] RBC (Bld) [#/Vol] 4.69 10*6/uL 4.40 - 5.9 0 10*6/uL [facility] WBC (Bld) [#/Vol] 10.2 10*3/uL 3.6 - 10.7 10*3/uL [facility] CBC WITH AUTO DIFFERENTIALon 12-01-2024 Basophils (Bld) [#/Vol] 0.1 10*3/uL Normal 0.0-0.2 [facility] Comment on above: Performed By: #### L [id number] ####Representative Government Relations: JACK ORTIZ ([phone])[facility])[address] [place] [address] Basophils/100 WBC (Bld) 0.6 % Normal 0.0-2.0 [facility] Comment on above: Performed By: #### L [id number] ####Representative Government Relations: JACK ORTIZ ([phone])[facility] ([facility])[address] [place] [address] [place] Eosinophils (Bld) [#/Vol] 0.0 10*3/uL Normal 0.0-0.5 [facility] Comment on above: Performed By: #### L [id number] ####Representative Government Relations: JACK ORTIZ ([phone])[facility])[address] [place] [address] Eosinophils/100 WBC (Bld) 0.3 % Normal 0.0-6.0 [facility] Comment on above: Performed By: #### L [id number] ####Representative Government Relations: JACK ORTIZ ([phone])[facility])[address] [place] [address] [place] Erythrocyte distribution width (RBC) [Ratio] 22.6 % High 11.5-15.0 [facility] Comment on above: Performed By: #### L [id number] ####Representative Government Relations: JACK [id number])[facility] [address] Hematocrit (Bld) [Volume fraction] 34.5 % Low 40.0-52.0 [facility] Comment on above: Performed By: #### L [id number] ####Representative Government Relations: JACK ORTIZ ([phone])[facility])[address] [place] [address] Hemoglobin (Bld) [Mass/Vol] 10.8 g/dL Low 13.0-18.0 [facility] Comment on above: Performed By: #### L [id number] ####Representative Government Relations: JACK ORTIZ ([phone])[facility])[address] [place] [address] IMMATURE GRANS % 0.4 % Normal 0.0-2.0 [facility] Comment on above: Performed By: #### L [id number] ####Representative Government Relations: JACK ORTIZ ([phone])[facility])[address] [place] [address] IMMATURE GRANS ABSOLUTE 0.0 10*3/uL Normal <0.1 [facility] Comment on above: Performed By: #### L [id number] ####Representative Government Relations: JACK ORTIZ ([phone])[facility])[address] [place] [address] Lymphocytes (Bld) [#/Vol] 1.3 10*3/uL Normal 1.0-4.3 [facility] Comment on above: Performed By: #### L [id number] ####Representative Government Relations: JACK ORTIZ ([phone])[facility])[address] [place] [address] Lymphocytes/100 WBC (Bld) 12.4 % Low 15.0-45.0 [facility] Comment on above: Performed By: #### L [id number] ####Representative Government Relations: JACK ORTIZ ([phone])[facility])[address] [place] [address] MCH (RBC) [Entitic mass] 23.0 pg Low 26.0-34.0 [facility] Comment on above: Performed By: #### L [id number] ####Representative Government Relations: JACK ORTIZ ([phone])[facility])[address] [place] [address] MCHC 31.3 % Normal 30.5-36.0 [facility] Comment on above: Performed By: #### L [id number] ####Representative Government Relations: JACK ORTIZ ([phone])[facility])[address] [place] [address] MCV (RBC) [Entitic vol] 73.6 fL Low 77.0-99.0 [facility] Comment on above: Performed By: #### L [id number] ####Representative Government Relations: JACK ORTIZ ([phone])[facility])[address] [place] [address] Monocytes (Bld) [#/Vol] 0.5 10*3/uL Normal 0.0-0.9 [facility] Comment on above: Performed By: #### L [id number] ####Representative Government Relations: JACK ORTIZ ([phone])[facility])[address] [place] [address] Monocytes/100 WBC (Bld) 5.0 % Normal 5.0-13.0 [facility] Comment on above: Performed By: #### L [id number] ####Representative Government Relations: JACK ORTIZ ([phone])[facility])[address] [place] [address] NEUTROPHILS ABSOLUTE 8.3 10*3/uL High 1.8-7.5 [facility] Comment on above: Performed By: #### L [id number] ####Representative Government Relations: JACK ORTIZ ([id number])[facility])[address] [place] [address] Neutrophils/100 WBC (Bld) 81.3 % Normal 38.0-82.0 [facility] Comment on above: Performed By: #### L [id number] ####Representative Government Relations: JACK ORTIZ ([id number])[facility] ([facility])[address] [place] [address] NRBC 0.0 /100 WBCs Normal 0.0-2.0 [facility] Comment on above: Performed By: #### L [id number] ####Representative Government Relations: JACK ORTIZ ([id number])[facility] ([facility])[address] [place] [address] Platelet mean volume (Bld) [Entitic vol] 9.9 fL Normal 9.0-12.7 [facility] Comment on above: Performed By: #### L [id number] ####Representative Government Relations: JACK ORTIZ ([phone])[facility])[address] [place] [address] Platelets (Bld) [#/Vol] 235 10*3/uL Normal 140-440 [facility] Comment on above: Performed By: #### L [id number] ####Representative Government Relations: JACK ORTIZ ([phone])[facility] ([facility])[address] [place] [address] RBC (Bld) [#/Vol] 4.69 10*6/uL Normal 4.40-5.90 [facility] Comment on above: Performed By: #### L [id number] ####Representative [employer] Relations: JACK ORTIZ ([phone])[facility])[address] [place] [address] WBC (Bld) [#/Vol] 10.2 10*3/uL Normal 3.6-10.7 [facility] Comment on above: Performed By: #### L [id number] ####Representative [employer] Relations: JACK ORTIZ ([id number])[facility])[address] [place] [address] COMPREHENSIVE METABOLIC PANE Eduardo 12-01-2024 Albumin [Mass/Vol] 2.9 g/dL Low 3.5-5.0 [facility] Comment on above: Performed By: #### L [id number] ####Representative Government Relations: JACK ORTIZ ([phone])[facility] ([facility])[address] [place] [address] ALP [Catalytic activity/Vol] 114 U/L Normal 40-150 [facility] Comment on above: Performed By: #### L [id number] ####Representative Government Relations: JACK ORTIZ ([phone])[facility] ([facility])[address] [place] [address] ALT [Catalytic activity/Vol] 14 U/L Normal <40 [facility] Comment on above: Performed By: #### L [id number] ####Representative Government Relations: JACK ORTIZ ([id number])[facility] ([facility])[address] [place] [address] Anion gap [Moles/Vol] 8 mmol/L Normal 3-13 [facility] Comment on above: Performed By: #### L [id number] ####Representative Government Relations: JACK ORTIZ ([phone])[facility] ([facility])[address] [place] [address] AST [Catalytic activity/Vol] 38 U/L High <34 [facility] Comment on above: Performed By: #### L [id number] ####Representative Government Relations: JACK ORTIZ ([phone])[facility] ([facility])[address] [place] [address] Bilirubin [Mass/Vol] 0.9 mg/dL Normal <1.2 [facility] Comment on above: Performed By: #### L [id number] ####Representative Government Relations: JACK ORTIZ ([phone])[facility] ([facility])[address] [place] [address] Calcium [Mass/Vol] 8.0 mg/dL Low 8.4-10.2 [facility] Comment on above: Performed By: #### L [id number] ####Representative [employer] Relations: JACK ORTIZ ([phone])[facility] ([facility])[address] [place] [address] Chloride [Moles/Vol] 99 mmol/L Normal 98-107 [facility] Comment on above: Performed By: #### L [id number] ####Representative Government Relations: JACK ORTIZ ([id number])[facility] ([facility])[address] [place] [address] CO2 [Moles/Vol] 25 mmol/L Normal 22-29 [facility] Comment on above: Performed By: #### L [id number] ####Representative Government Relations: JACK ORTIZ ([phone])[facility] ([facility])[address] [place] [address] Creatinine [Mass/Vol] 0.66 mg/dL Low 0.72-1.25 [facility] Comment on above: Performed By: #### L [id number] ####Representative Government Relations: JACK ORTIZ ([phone])[facility])[address] [place] [address] GLOMERULAR FILTRATION RATE ML/MIN/1.73 SQ M.PREDICTED >90.0 Normal >60.0 [facility] Comment on above: Result Comment: Calc ulation based on the Chronic Kidney Disease Epidemiology Collaboration (CKD-EPI) equation refit without adjustment for race Performed By: #### L [id number] ####Representative [employer] Relations: JACK ORTIZ ([id number])[facility] ([facility])[address] [place] [address] Glucose [Mass/Vol] 93 mg/dL Normal 74-100 [facility] Comment on above: Performed By: #### L [id number] ####Representative [employer] Relations: JACK ORTIZ ([phone])[facility])[address] [place] [address] Potassium [Moles/Vol] 2.7 mmol/L Low 3.5-5.1 [facility] Comment on above: Result Comment: [facility] potassium values may be up to 0.5 mmol/L lower than serum values. Performed By: #### L AB17 ####Representative Government Relations: JACK ORTIZ ([phone])[facility] ([facility])[address] [place] [address] Protein [Mass/Vol] 6.5 g/dL Normal 6.4-8.3 [facility] Comment on above: Performed By: #### L [id number] ####Representative Government Relations: JACK ORTIZ ([phone])[facility] ([facility])[address] [place] [address] Sodium [Moles/Vol] 132 mmol/L Low 136-145 [facility] Comment on above: Performed By: #### L AB17 ####Representative [employer] Relations: JACK ORTIZ ([phone])[facility] ([facility])[address] [place] [address] Urea nitrogen [Mass/Vol] 11 mg/dL Normal 8-21 [facility] Comment on above: Performed By: #### L [id number] ####Representative [employer] Relations: JACK ORTIZ ([phone])[facility])[address] [place] [address] Comprehensive metabolic 1998 panelOrdered By: Carolina Barry on 12-01-2024 Albumin [Mass/Vol] 2.9 g/dL Low 3.5 - 5.0 g/dL [facility] ALP [Catalytic activity/Vol] 114 U/L 40 - 150 U/L [facility] ALT [Catalytic activity/Vol] 14 U[facility]L [facility]/L [facility] Anion gap [Moles/Vol] 8 mmol/L 3 - 13 mmol/L [facility] AST [Catalytic activity/Vol] 38 U/L High [facility] - 34 U/L [facility] Bilirubin [Mass/Vol] 0.9 mg/dL [facility] - 1.2 mg/dL [facility] Calcium [Mass/Vol] 8 mg/dL Low 8.4 - 10. 2 mg/dL [facility] Chloride [Moles/Vol] 99 mmol/L 98 - 10 7 mmol/L [facility] CO2 [Moles/Vol] 25 mmol/L 22 - 29 mmol/L [facility] Creatinine [Mass/Vol] 0.66 mg/dL Low 0.72 - 1.25 mg/dL [facility] GFR/1.73 sq M.predicted (S/P/Bld) [Vol rate/Area] - PINF [facility] Comment on above: Calculation based on the Chronic Kidney Disease Epidemiology Collaboration (CKD-EPI) equation refit without adjustment for race Glucose [Mass/Vol] 93 mg/dL 74 - 100 mg/dL [facility] Interpretation and review of laboratory results Abnormal [facility] Potassium [Moles/Vol] 2.7 mmol/L Low 3.5 - 5.1 mmol/L [facility] Comment on above: Plasma potassium ema ues may be up to 0.5 mmol/L lower than serum values. Protein [Mass/Vol] 6.5 g/dL 6.4 - 8.3 g/dL [facility] Sodium [Moles/Vol] 132 mmol/L Low 136 - 145 mmol/L [facility] Urea nitrogen [Mass/Vol] 11 mg/dL 8 - 21 mg/dL [facility] Consulton 12-01-2024 Consult Normal [facility] Consult Normal [facility] Consult Normal [facility] ECG 12-LEADon 12-01-2024 ECG 12-LEAD IMPRESSION: Sinus tachycardia Probable left atrial enlargement Nonspecific repol abnormality, lateral leads No change compared to previous ekg Electronically Signed On 12-01-2024 00:30:11 EDT by Ramesh Grimaldo Normal [facility] Laboratory - Chemistry and C hemistry - challengeon 12-01-2024 Magnesium [Mass/Vol] 2.1 mg/dL 1.6 - 2 .6 mg/dL [facility] Magnesium [Mass/Vol] 1.5 mg/dL Low 1.6 - 2 .6 mg/dL [facility] MAGNESIUMon 12-01-2024 Magnesium [Mass/Vol] 2.1 mg/dL Normal 1.6-2.6 [facility] Comment on above: Result Comment: PAGE R COMMENTS:Higher values can be expected in females during menses. Performed By: #### L AB113, [id number], LAB15 ####[employer] Relations: JACK ORTIZ ([phone])[facility] ([facility])[address] [place] [address] Magnesium [Mass/Vol] 1.5 mg/dL Low 1.6-2.6 [facility] Comment on above: Result Comment: PAGE R COMMENTS:Higher values can be expected in females during menses. Performed By: #### L [id number], [id number] ####[employer] Relations: JACK ORTIZ ([phone])[facility] ([facility])[address] [place] [address] Magnesium [Mass/Vol]on 12-01 Interpretation and review of laboratory results Normal [facility] [employer] Higher values can be expected in females during menses. [facility] [employer] Interpretation and review of laboratory results Abnormal [facility] [employer] Higher values can be expected in females during menses. [facility] [employer] No Panel Informationon 12-01 Interpretation and review of laboratory results Abnormal [facility] [employer] Sinus tachycardia Probable left atrial enlargement Nonspecific repol abnormality, lateral leads No change compared to previous ekg Electronically Signed On 12-01-2024 00:30:11 EDT by Ramesh De Oliveira M D - 12/01/2024 IMPRESSION: Sinus tachycardia Probable left atrial enlargement Nonspecific repol abnormality, lateral leads No change compared to previous ekg Electronically Signed On 12-01-2024 00:30:11 EDT by Ramesh Grimaldo [facility] [employer] No Panel InformationOrdered By: Ramesh Grimaldo on 12-01-2024 P [place] 82 degrees [facility] Work Phone: MI Interval 143 ms [facility] Work Phone: QRS [place] 31 degrees [facility] Work Phone: QRSD Interval 100 ms [facility]: QT Interval 332 ms [facility] Work Phone: QTC Interval 477 ms [facility] Work Phone: T Wave [place] 104 degrees [facility] Work Phone: [facility] [employer] Work Phone: PHOSPHORUSon 12-01-2024 Phosphate [Mass/Vol] 1.9 mg/dL Low 2.3-4.7 [facility] [employer] [facility] Comment on above: Performed By: #### L AB113, [id number], LAB15 ####Representative Government Relations: JACK ORTIZ ([phone])[facility] ([address] Phosphate [Mass/Vol] 3.2 mg/dL Normal 2.3-4.7 [facility] [employer] [facility] Comment on above: Performed By: #### L AB113, [id number] ####Representative Government Relations: JACK ORTIZ ([phone])[facility] ([facility])[address] [place] [address] [place] Phosphate [Moles/Vol]on 11-16 Phosphate [Mass/Vol] 1.9 mg/dL Low 2.3 - 4 .7 mg/dL [facility] Interpretation and review of laboratory results Normal [facility] Phosphate [Mass/Vol] 3.2 mg/dL 2.3 - 4 .7 mg/dL [facility] Progress Noteon 12-01-2024 Progress Note Normal [facility] Progress Note Normal [facility] Vital signsOrdered By: Nicho Grimaldo on 12-01-2024 Heart rate 123 /min bpm [facility] [employer] Work Phone: ACETAMINOPHEN LEVELon 2024 Acetaminophen [Mass/Vol] ug/mL Low 10.0-30.0 [facility] Comment on above: Result Comment: PGAE Menezes COMMENTS:Acetaminophen concentrations greater than 150 ug/mL at 4 hours after ingestion and greater than 40 ug/mL at 12 hours after ingestion are often associated with toxicity. Performed By: #### L AB43, LAB99, LAB15 ####Representative Government Relations: JACK ORTIZ ([phone])[facility]ENTERMain [employer] ([employer])[address] [place] [address] [place] Acetaminophen [Mass/Vol]on 11-30-2024 Interpretation and review of laboratory results Abnormal [facility] Acetaminophen concentrations greater than 150 ug/mL at 4 hours after ingestion and greater than 40 ug/mL at 12 hours after ingestion are often associated with toxicity. [facility] [employer] BASIC METABOLIC PANELon 11-16 Anion gap [Moles/Vol] 12 mmol/L Normal 3-13 [facility] Comment on above: Performed By: #### L AB43, LAB99, LAB15 ####Representative Government Relations: JACK ORTIZ ([phone])[facility]ENTERMain [employer] ([employer])[address] [place] [address] Calcium [Mass/Vol] 7.2 mg/dL Low 8.4-10.2 [facility] Comment on above: Performed By: #### L AB43, LAB99, LAB15 ####Representative Government Relations: JACK ORTIZ ([phone])DEANDRE [employer] ([employer])[address] [place] [address] [place] Chloride [Moles/Vol] 96 mmol/L Low 98-107 [facility] Comment on above: Performed By: #### L AB43, LAB99, LAB15 ####Representative Government Relations: JACK ORTIZ ([id number])[facility]Main [employer] [place] ([employer])[address] [place] [address] [place] CO2 [Moles/Vol] 26 mmol/L Normal 22-29 [facility] Comment on above: Performed By: #### Abdelrahman AB43, LAB99, LAB15 ####Representative Government Relations: JACK ORTIZ ([phone])[facility]ENTERMain [place] ([employer])[address] [place] [address] [place] Creatinine [Mass/Vol] 0.70 mg/dL Low 0.72-1.25 [facility] Comment on above: Performed By: #### Abdelrahman AB43, LAB99, LAB15 ####Representative Government Relations: JACK ORTIZ ([phone])[facility] [place] ([employer])[address] [place] [address] GLOMERULAR FILTRATION RATE ML/MIN/1.73 SQ M.PREDICTED >90.0 Normal >60.0 [facility] Comment on above: Result Comment: Calc ulation based on the Chronic Kidney Disease Epidemiology Collaboration (CKD-EPI) equation refit without adjustment for race Performed By: #### L AB43, LAB99, LAB15 ####Representative Government Relations: JACK ORTIZ ([phone])[facility]ENTERMain [employer] ([employer])[address] [place] [address] [place] Glucose [Mass/Vol] 103 mg/dL High 74-100 [facility] Comment on above: Performed By: #### L AB43, LAB99, LAB15 ####Representative Government Relations: JACK ORTIZ ([phone])[facility] [place] ([employer])[address] Potassium [Moles/Vol] 2.7 mmol/L Low 3.5-5.1 [facility] Comment on above: Result Comment: [facility] potassium values may be up to 0.5 mmol/L lower than serum values. Performed By: #### L AB43, LAB99, LAB15 ####Representative Government Relations: JACK ORTIZ ([phone])[facility]ENTERMain [place] ([employer])[address] Sodium [Moles/Vol] 134 mmol/L Low 136-145 [facility] Comment on above: Performed By: #### L AB43, LAB99, LAB15 ####Representative Government Relations: JACK ORTIZ ([phone])[facility] [place] ([employer])[address] [place] [address] Urea nitrogen [Mass/Vol] 18 mg/dL Normal 8-21 [facility] Comment on above: Performed By: #### L AB43, LAB99, LAB15 ####Representative Government Relations: JACK ORTIZ ([phone])[facility] MERRILLAN (SW[employer])[address] [place] [address] Basic metabolic 1998 panelOr dered By: La Lawrence on 11-30-2024 Anion gap [Moles/Vol] 12 mmol/L 3 - 13 mmol/L [facility] Calcium [Mass/Vol] 7.2 mg/dL Low 8.4 - 10. 2 mg/dL [facility] Chloride [Moles/Vol] 96 mmol/L Low 98 - 10 7 mmol/L [facility] CO2 [Moles/Vol] 26 mmol/L 22 - 29 mmol/L [facility] Creatinine [Mass/Vol] 0.7 mg/dL Low 0.72 - 1.25 mg/dL [facility] GFR/1.73 sq M.predicted (S/P/Bld) [Vol rate/Area] - PINF [facility] Comment on above: Calculation based on the Chronic Kidney Disease Epidemiology Collaboration (CKD-EPI) equation refit without adjustment for race Glucose [Mass/Vol] 103 mg/dL High 74 - 100 mg/dL [facility] Interpretation and review of laboratory results Abnormal [facility] Potassium [Moles/Vol] 2.7 mmol/L Low 3.5 - 5.1 mmol/L [facility] Comment on above: Plasma potassium ema ues may be up to 0.5 mmol/L lower than serum values. Sodium [Moles/Vol] 134 mmol/L Low 136 - 145 mmol/L [facility] Urea nitrogen [Mass/Vol] 18 mg/dL 8 - 21 mg/dL [facility] CBC W Auto Differential pane l (Bld)on 11-30-2024 Basophils (Bld) [#/Vol] 0.1 10*3/uL 0.0 - 0.2 10*3/uL [facility] Basophils/100 WBC (Bld) 0.6 % 0.0 - 2.0 % [facility] Eosinophils (Bld) [#/Vol] 0 10*3/uL 0.0 - 0.5 10*3/uL [facility] Eosinophils/100 WBC (Bld) 0 % 0.0 - 6.0 % [facility] Erythrocyte distribution width (RBC) [Ratio] 23 % High 11.5 - 15.0 % [facility] Hematocrit (Bld) [Volume fraction] 34.1 % Low 40.0 - 52.0 % [facility] Hemoglobin (Bld) [Mass/Vol] 10.6 g/dL Low 13.0 - 18.0 g/dL [facility] Immature granulocytes (Bld) [#/Vol] 0 10*3/uL NINF - 0.1 10*3/uL [facility] Immature granulocytes/100 WBC (Bld) 0.4 % 0.0 - 2.0 % [facility] Interpretation and review of laboratory results Abnormal [facility] Lymphocytes (Bld) [#/Vol] 1 10*3/uL 1.0 - 4.3 10*3/uL [facility] Lymphocytes/100 WBC (Bld) 11 % Low 15.0 - 45.0 % [facility] MCH (RBC) [Entitic mass] 22.9 pg Low 26.0 - 34.0 pg [facility] MCHC (RBC) [Mass/Vol] 31.1 % 30.5 - 36.0 % [facility] MCV (RBC) [Entitic vol] 73.7 fL Low 77.0 - 99.0 fL [facility] Monocytes (Bld) [#/Vol] 0.5 10*3/uL 0.0 - 0.9 10*3/uL [facility] Monocytes/100 WBC (Bld) 5.9 % 5.0 - 13.0 % [facility] Neutrophils (Bld) [#/Vol] 7.4 10*3/uL 1.8 - 7.5 10*3/uL [facility] Neutrophils/100 WBC (Bld) 82.1 % High 38.0 - 82.0 % [facility] Nucleated RBC/100 WBC (Bld) [Ratio] 0 % [facility] [employer] Platelet mean volume (Bld) [Entitic vol] 9.4 fL 9.0 - 12.7 fL [facility] Platelets (Bld) [#/Vol] 214 10*3/uL 140 - 440 10*3/uL [facility] RBC (Bld) [#/Vol] 4.63 10*6/uL 4.40 - 5.9 0 10*6/uL [facility] WBC (Bld) [#/Vol] 9 10*3/uL 3.6 - 10.7 10*3/uL [facility] CBC WITH AUTO DIFFERENTIALon 11-30-2024 Basophils (Bld) [#/Vol] 0.1 10*3/uL Normal 0.0-0.2 [facility] Comment on above: Performed By: #### L [id number] ####Representative Government Relations: JACK ORTIZ ([phone])[address] Basophils/100 WBC (Bld) 0.6 % Normal 0.0-2.0 [facility] Comment on above: Performed By: #### L [id number] ####Representative Government Relations: JACK ORTIZ ([id number])[facility])[address] [place] [address] Eosinophils (Bld) [#/Vol] 0.0 10*3/uL Normal 0.0-0.5 [facility] Comment on above: Performed By: #### L [id number] ####Representative Government Relations: JACK ORTIZ ([id number])[facility])[address] [place] [address] Eosinophils/100 WBC (Bld) 0.0 % Normal 0.0-6.0 [facility] Comment on above: Performed By: #### L [id number] ####Representative Government Relations: JACK ORTIZ ([id number])[facility])[address] [place] [address] Erythrocyte distribution width (RBC) [Ratio] 23.0 % High 11.5-15.0 [facility] Comment on above: Performed By: #### L [id number] ####Representative Government Relations: JACK ORTIZ ([phone])[facility])[address] [place] [address] Hematocrit (Bld) [Volume fraction] 34.1 % Low 40.0-52.0 [facility] Comment on above: Performed By: #### L [id number] ####Representative Government Relations: JACK ORTIZ ([id number])[facility])[address] [place] [address] Hemoglobin (Bld) [Mass/Vol] 10.6 g/dL Low 13.0-18.0 [facility] Comment on above: Performed By: #### L [id number] ####Representative Government Relations: JACK ORTIZ ([id number])[facility])[address] [place] [address] IMMATURE GRANS % 0.4 % Normal 0.0-2.0 [facility] Comment on above: Performed By: #### L [id number] ####Representative [employer] Relations: JACK ORTIZ ([phone])[facility])[address] [place] [address] IMMATURE GRANS ABSOLUTE 0.0 10*3/uL Normal <0.1 [facility] Comment on above: Performed By: #### L [id number] ####Representative Government Relations: JACK ORTIZ ([id number])[facility])[address] [place] [address] [place] Lymphocytes (Bld) [#/Vol] 1.0 10*3/uL Normal 1.0-4.3 [facility] Comment on above: Performed By: #### L [id number] ####Representative Government Relations: JACK ORTIZ ([id number])[facility])[address] [place] [address] Lymphocytes/100 WBC (Bld) 11.0 % Low 15.0-45.0 [facility] Comment on above: Performed By: #### L [id number] ####Representative Government Relations: JACK ORTIZ ([id number])[facility])[address] [place] [address] MCH (RBC) [Entitic mass] 22.9 pg Low 26.0-34.0 [facility] Comment on above: Performed By: #### L [id number] ####Representative Government Relations: JACK ORTIZ ([id number])[facility])[address] [place] [address] MCHC 31.1 % Normal 30.5-36.0 [facility] Comment on above: Performed By: #### L [id number] ####Representative Government Relations: JACK ORTIZ ([id number])[facility])[address] [place] [address] MCV (RBC) [Entitic vol] 73.7 fL Low 77.0-99.0 [facility] Comment on above: Performed By: #### L [id number] ####Representative Government Relations: JACK ORTIZ ([id number])[facility])[address] [place] [address] Monocytes (Bld) [#/Vol] 0.5 10*3/uL Normal 0.0-0.9 [facility] Comment on above: Performed By: #### L [id number] ####Representative Government Relations: JACK ORTIZ ([id number])[facility])[address] [place] [address] Monocytes/100 WBC (Bld) 5.9 % Normal 5.0-13.0 [facility] Comment on above: Performed By: #### L [id number] ####Representative Government Relations: JACK ORTIZ ([id number])[facility] ([facility])[address] [place] [address] NEUTROPHILS ABSOLUTE 7.4 10*3/uL Normal 1.8-7.5 [facility] Comment on above: Performed By: #### L [id number] ####Representative Government Relations: JACK ORTIZ ([id number])[facility] ([facility])[address] [place] [address] Neutrophils/100 WBC (Bld) 82.1 % High 38.0-82.0 [facility] Comment on above: Performed By: #### L [id number] ####Representative Government Relations: JACK ORTIZ ([id number])[facility] ([facility])[address] [place] [address] NRBC 0.0 /100 WBCs Normal 0.0-2.0 [facility] Comment on above: Performed By: #### L [id number] ####Representative Government Relations: JACK ORTIZ ([phone])[facility] ([facility])[address] [place] [address] Platelet mean volume (Bld) [Entitic vol] 9.4 fL Normal 9.0-12.7 [facility] Comment on above: Performed By: #### L [id number] ####Representative Government Relations: JACK ORTIZ ([id number])[facility] ([facility])[address] [place] [address] Platelets (Bld) [#/Vol] 214 10*3/uL Normal 140-440 [facility] Comment on above: Performed By: #### L [id number] ####Representative Government Relations: JACK ORTIZ ([id number])[facility] ([facility])[address] [place] [address] RBC (Bld) [#/Vol] 4.63 10*6/uL Normal 4.40-5.90 [facility] Comment on above: Performed By: #### L [id number] ####Representative Government Relations: JACK ORTIZ ([id number])[facility] ([facility])[address] [place] [address] WBC (Bld) [#/Vol] 9.0 10*3/uL Normal 3.6-10.7 [facility] Comment on above: Performed By: #### L [id number] ####Representative Government Relations: JACK ORTIZ ([phone])[facility] ([facility])[address] [place] [address] COMPREHENSIVE METABOLIC PANE Eduardo 11-30-2024 Albumin [Mass/Vol] 2.8 g/dL Low 3.5-5.0 [facility] Comment on above: Performed By: #### L AB17 ####Representative Government Relations: JACK ORTIZ ([phone])[facility])[address] [place] [address] ALP [Catalytic activity/Vol] 106 U/L Normal 40-150 [facility] Comment on above: Performed By: #### L AB17 ####Representative Government Relations: JACK ORTIZ ([id number])[facility] ([facility])[address] [place] [address] ALT [Catalytic activity/Vol] 14 U/L Normal <40 [facility] Comment on above: Performed By: #### L AB17 ####Representative Government Relations: JACK ORTIZ ([id number])[facility])[address] [place] [address] Anion gap [Moles/Vol] 11 mmol/L Normal 3-13 [facility] Comment on above: Performed By: #### L AB17 ####Representative Government Relations: JACK ORTIZ ([id number])[facility])[address] [place] [address] AST [Catalytic activity/Vol] 61 U/L High <34 [facility] Comment on above: Result Comment: TCSi gnificant interference from hemolysis. Result integrity compromised. Interpret with caution. Performed By: #### L AB17 ####Representative Government Relations: JACK ORTIZ ([id number])[facility])[address] [place] [address] Bilirubin [Mass/Vol] 1.0 mg/dL Normal <1.2 [facility] Comment on above: Performed By: #### L AB17 ####Representative Government Relations: JACK ORTIZ ([phone])[facility] ([facility])[address] [place] [address] Calcium [Mass/Vol] 7.5 mg/dL Low 8.4-10.2 [facility] Comment on above: Performed By: #### L AB17 ####Representative Government Relations: JACK ORTIZ ([phone])[facility] ([facility])[address] [place] [address] Chloride [Moles/Vol] 98 mmol/L Normal 98-107 [facility] Comment on above: Performed By: #### L AB17 ####Representative Government Relations: JACK ORTIZ ([id number])[facility] ([facility])[address] [place] [address] CO2 [Moles/Vol] 22 mmol/L Normal 22-29 [facility] Comment on above: Performed By: #### L AB17 ####Representative Government Relations: JACK ORTIZ ([phone])[facility])[address] [place] [address] Creatinine [Mass/Vol] 0.66 mg/dL Low 0.72-1.25 [facility] Comment on above: Performed By: #### L AB17 ####Representative Government Relations: JACK ORTIZ ([phone])[facility])[address] [place] [address] GLOMERULAR FILTRATION RATE ML/MIN/1.73 SQ M.PREDICTED >90.0 Normal >60.0 [facility] Comment on above: Result Comment: Calc ulation based on the Chronic Kidney Disease Epidemiology Collaboration (CKD-EPI) equation refit without adjustment for race Performed By: #### L AB17 ####[employer]ative [employer] Relations: JACK ORTIZ ([id number])[facility])[address] [place] [address] Glucose [Mass/Vol] 92 mg/dL Normal 74-100 [facility] Comment on above: Performed By: #### L AB17 ####Representative Government Relations: JACK ORTIZ ([id number])[facility])[address] [place] [address] Potassium [Moles/Vol] 4.4 mmol/L Normal 3.5-5.1 [facility] Comment on above: Result Comment: TCSi gnificant interference from hemolysis. Result integrity compromised. Interpret with caution. Performed By: #### L AB17 ####[employer] Relations: JACK ORTIZ ([phone])[facility])[address] [place] [address] Protein [Mass/Vol] 6.3 g/dL Low 6.4-8.3 [facility] Comment on above: Result Comment: TCPo tential interference from hemolysis Performed By: #### L AB17 ####Representative Government Relations: JACK ORTIZ ([id number])[facility])[address] [place] [address] Sodium [Moles/Vol] 131 mmol/L Low 136-145 [facility] Comment on above: Performed By: #### L AB17 ####[employer] Relations: JACK ORTIZ ([id number])[address] Urea nitrogen [Mass/Vol] 13 mg/dL Normal 8-21 [facility] Comment on above: Performed By: #### L AB17 ####Representative [employer] Relations: JACK ORTIZ ([id number])[facility])[address] [place] [address] CT ABDOMEN PELVIS ANGIOGRAM W AND/OR WO IV CONTRASTon 11-30-2024 CT ABDOMEN PELVIS ANGIOGRAM W AND/OR WO IV CONTRAST Normal [facility] CT Abdomen and Pelvis W cont rast Luca 11-30-2024 Impression: The etiology of symptoms not certain. Findings suspicious for inflammatory or infiltrative changes of the stomach, duodenum and hepatic flexure of the colon. Distended bowel scattered fluid levels etiology is not certain but may reflect an element of ileus. Follow-up or further evaluation recommended. Consider follow-up GI bleed scan for persistent symptoms of active bleeding. Report Dictated on Electronically Signed By: Dev Queen MD Electronically Signed Date/Time: 11/30/2024 7:33 PM EDT [facility] Patient Name: EL SMITH : 1980 Exam Date/Time: 11/30/2024 18:17 Procedure: CT ABDOMEN PELVIS ANGIOGRAM W AND/OR WO IV CONTRAST Ordering Provider: MONTALVO MICHAEL Reason For Exam: concern for GI bleed Indication: Concern for GI bleeding. FINDINGS: Unenhanced and enhanced abdomen pelvis performed using 75 mL Isovue-370. Dose reduction and automatic exposure control, 3-D imaging utilized. No free air or convincing bowel obstruction seen. There is thickening of the stomach and duodenum demonstrates a surrounding infiltration duodenal level. Also there is some thickening of the hepatic flexure of the colon. Note made of mild distention of bowel loops is some scattered air-fluid levels, nonspecific. No convincing active disease of spleen pancreas adrenals kidneys liver gallbladder urinary bladder. There is no convincing extravasation of contrast into bowel lumen. [facility] Dev Queen MD - 11/30/2024 Patient Name: EL SMITH : 1980 Exam Date/Time: 11/30/2024 18:17 Procedure: CT ABDOMEN PELVIS ANGIOGRAM W AND/OR WO IV CONTRAST Ordering Provider: MONTALVO MICHAEL Reason For Exam: concern for GI bleed Indication: Concern for GI bleeding. FINDINGS: Unenhanced and enhanced abdomen pelvis performed using 75 mL Isovue-370. Dose reduction and automatic exposure control, 3-D imaging utilized. No free air or convincing bowel obstruction seen. There is thickening of the stomach and duodenum demonstrates a surrounding infiltration duodenal level. Also there is some thickening of the hepatic flexure of the colon. Note made of mild distention of bowel loops is some scattered air-fluid levels, nonspecific. No convincing active disease of spleen pancreas adrenals kidneys liver gallbladder urinary bladder. There is no convincing extravasation of contrast into bowel lumen. IMPRESSION: Impression: The etiology of symptoms not certain. Findings suspicious for inflammatory or infiltrative changes of the stomach, duodenum and hepatic flexure of the colon. Distended bowel scattered fluid levels etiology is not certain but may reflect an element of ileus. Follow-up or further evaluation recommended. Consider follow-up GI bleed scan for persistent symptoms of active bleeding. Report Dictated on Electronically Signed By: Dev Queen MD Electronically Signed Date/Time: 11/30/2024 7:33 PM EDT [facility] Radiology Study observation (narrative) [facility] CT Abdomen and Pelvis W cont rast IVOrdered By: Dev Queen on 11-30-2024 [facility] Work Phone: Comprehensive metabolic 1998 panelOrdered By: Ani Hodges on 11-30-2024 Albumin [Mass/Vol] 2.8 g/dL Low 3.5 - 5.0 g/dL [facility] ALP [Catalytic activity/Vol] 106 U/L 40 - 150 U/L [facility] ALT [Catalytic activity/Vol] 14 [facility]L [facility] Anion gap [Moles/Vol] 11 mmol/L 3 - 13 mmol/L [facility] AST [Catalytic activity/Vol] 61 U/L High [facility] - 34 U/L [facility] Comment on above: TC Significant interference from hemolysis. Result integrity compromised. Interpret with caution. Bilirubin [Mass/Vol] 1 mg/dL [facility] - 1.2 mg/dL [facility] [place] Calcium [Mass/Vol] 7.5 mg/dL Low 8.4 - 10. 2 mg/dL [facility] Chloride [Moles/Vol] 98 mmol/L 98 - 10 7 mmol/L [facility] CO2 [Moles/Vol] 22 mmol/L 22 - 29 mmol/L [facility] Creatinine [Mass/Vol] 0.66 mg/dL Low 0.72 - 1.25 mg/dL [facility] GFR/1.73 sq M.predicted (S/P/Bld) [Vol rate/Area] - PINF [facility] Comment on above: Calculation based on the Chronic Kidney Disease Epidemiology Collaboration (CKD-EPI) equation refit without adjustment for race Glucose [Mass/Vol] 92 mg/dL 74 - 100 mg/dL [facility] Interpretation and review of laboratory results Abnormal [facility] Potassium [Moles/Vol] 4.4 mmol/L 3.5 - 5.1 mmol/L [facility] Comment on above: TC Significant interference from hemolysis. Result integrity compromised. Interpret with caution. Protein [Mass/Vol] 6.3 g/dL Low 6.4 - 8.3 g/dL [facility] Comment on above: TC Potential interference from hemolysis Sodium [Moles/Vol] 131 mmol/L Low 136 - 145 mmol/L [facility] Urea nitrogen [Mass/Vol] 13 mg/dL 8 - 21 mg/dL [facility] ED Nursing Noteon 11-30-2024 ED Nursing Note Phoned [facility] T1 to [facility] e report. Nurse busy, asked that I call back later. Normal [facility] HEMOGLOBIN AND HEMATOCRIT, B LOODon 11-30-2024 Hematocrit (Bld) [Volume fraction] 31.9 % Low 40.0-52.0 [facility] Comment on above: Performed By: #### L [id number] ####Representative Government Relations: JACK ORTIZ ([phone])[address] Hemoglobin (Bld) [Mass/Vol] 10.1 g/dL Low 13.0-18.0 [facility] Comment on above: Performed By: #### L [id number] ####Representative Government Relations: JACK ORTIZ ([phone])[address] Hemoglobin (Bld) [Mass/Vol]O rdered By: Chhaya Josue on 11-30-2024 Hematocrit (Bld) [Volume fraction] 31.9 % Low 40.0 - 52.0 % [facility] Interpretation and review of laboratory results Abnormal [facility] LACTIC ACID WITH REFLEXon Lactate [Moles/Vol] 1.4 mmol/L Normal 0.5-2.2 [facility] Comment on above: Performed By: #### L [id number] ####Representative Government Relations: JACK ORTIZ ([id number])[facility])[address] [place] [address] Lactate [Moles/Vol] 2.9 mmol/L High 0.5-2.2 [facility] Comment on above: Performed By: #### L [id number] ####Representative Government Relations: JACK ORTIZ ([id number])[facility]ENTERMain TREJOSANDRA BETITOTMAN (SWRLAB)[address] [place] [address] Lactate [Moles/Vol] 3.5 mmol/L High 0.5-2.2 [facility] Comment on above: Performed By: #### L [id number] ####Representative Government Relations: JACK ORTIZ ([phone])[facility] DESIRAEAN (RLAB)[address] [place] [address] LIPASEon 11-30-2024 Lipase [Catalytic activity/Vol] 38 U/L Normal <55 [facility] Comment on above: Performed By: #### L [id number], [id number], LAB15 ####Representative Government Relations: JACK ORTIZ ([phone])[facility]ENTERMain SANDRABREANNA CISSETMAN (SWRLAB)[address] [place] [address] Laboratory - Chemistry and C hemistry - challengeon 11-30-2024 Lactate [Moles/Vol] 1.4 mmol/L 0.5 - 2. 2 mmol/L [facility] Lipase [Catalytic activity/Vol] 38 U/L NINF - 55 U/L [facility] Lactate [Moles/Vol] 2.9 mmol/L High 0.5 - 2. 2 mmol/L [facility] Lactate [Moles/Vol] 3.5 mmol/L High 0.5 - 2. 2 mmol/L [facility] Laboratory - Drug toxicology on 11-30-2024 Acetaminophen [Mass/Vol] ug/mL Low 10.0 - 30.0 ug/mL [facility] Laboratory - Hematology and Cell countsOrdered By: Chhaya Josue on 11-30-2024 Hemoglobin (Bld) [Mass/Vol] 10.1 g/dL Low 13.0 - 18.0 g/dL [facility] Lipase [Catalytic activity/V ol]on 11-30-2024 Interpretation and review of laboratory results Normal [facility] No Panel Informationon 11-30 Interpretation and review of laboratory results Normal [facility] Interpretation and review of laboratory results Abnormal [facility] Interpretation and review of laboratory results Abnormal [facility] AMMONIAon 11-29-2024 Ammonia (P) [Moles/Vol] 28 umol/L Normal 18-72 [facility] Comment on above: Performed By: #### L [id number] ####Representative Government Relations: JACK ORTIZ ([phone])[facility]ENTERMain GUEVARA (SWRLAB)[address] [place] [address] APTTon 11-29-2024 aPTT Coag (Bld) [Time] 26.8 s Normal 20.0-30.5 [facility] Comment on above: Result Comment: PAGE Menezes COMMENTS:NOTE: The therapeutic time for Heparin anticoagulation, based on Xa activity inhibition, is an APTT of 46-80 seconds. Performed By: #### L [id number], [id number] ####Representative Government Relations: JACK ORTIZ ([phone])[facility]ENTERMain GUEVARA (SWRLAB)[address] [place] [address] BLOOD CULTUREon 11-29-2024 Bacteria identified Cx Nom (Bld) Normal [facility] Comment on above: Performed By: #### L [id number] ####Representative Government Relations: JACK ORTIZ ([phone])[facility] ([facility])[address] [place] [address] BLOOD GAS, VENOUS (SWR AND S HC)on 11-29-2024 AMOUNT OF OXYGEN 0 Normal [facility] Comment on above: Performed By: #### L [id number] ####Representative Government Relations: JACK ORTIZ ([id number])[facility]ENTERMain GUEVARA (SWRLAB)[address] [place] [address] BASE EXCESS (MMOL/L) IN VENOUS BLOOD 2.0 mmol/L Normal -3.0-3.0 [facility] Comment on above: Performed By: #### L [id number] ####Representative Government Relations: JACK ORTIZ ([phone])DEANDRE FLORES RITTMAN (SWRLAB)[address] [place] [address] [place] CARBON DIOXIDE (MM HG) IN VENOUS BLOOD 33 mm(Hg) Low 40-55 [facility] Comment on above: Performed By: #### L [id number] ####Representative Government Relations: JACK ORTIZ ([id number])[facility]ENTERMain FLORES RITTMAN (SWRLAB)[address] [place] [address] [place] CO2 [Moles/Vol] 26.0 mmol/L Normal 24.0-28.0 [facility] Comment on above: Performed By: #### L [id number] ####Representative Government Relations: JACK ORTIZ ([id number])[facility]ENTERMain FLORES RITTMAN (SWRLAB)[address] [place] [address] [place] HCO3 (Bld) [Moles/Vol] 25.0 mmol/L Normal 23.0-27.0 [facility] Comment on above: Performed By: #### L [id number] ####Representative Government Relations: JACK ORTIZ ([phone])[facility]ENTERMain FLORES RITTMAN (SWRLAB)[address] [place] [address] OXYGEN (MM HG) IN VENOUS BLOOD 88 mm(Hg) Normal [facility] Comment on above: Performed By: #### L [id number] ####Representative Government Relations: JACK ORTIZ ([phone])[facility]ENTERMain FLORES RITTMAN (SWRLAB)[address] [place] [address] [place] OXYGEN SATURATION (%) IN VENOUS BLOOD 97.0 % High 60.0-80.0 [facility] Comment on above: Performed By: #### L [id number] ####Representative Government Relations: JACK ORTIZ ([phone])[facility]ENTERMain FLORES RITTMAN (SWRLAB)[address] [place] [address] [place] pH (Bld) 7.487 [pH] High 7.310-7.410 [facility] Comment on above: Performed By: #### L [id number] ####Representative Government Relations: JACK ORTIZ ([id number])DEANDRE MERRILLAN (SWRLAB)[address] [place] [address] SOURCE OF OXYGEN None (Room Air) [facility] Comment on above: Performed By: #### L [id number] ####Representative Government Relations: JACK ORTIZ ([id number])[facility] MERRILLAN (SWRLAB)[address] [place] [address] CBC W Auto Differential pane l (Bld)Ordered By: Monica Daily on 11-29-2024 Basophils (Bld) [#/Vol] 0.1 10*3/uL 0.0 - 0.2 10*3/uL [facility] Basophils/100 WBC (Bld) 1 % 0.0 - 2.0 % [facility] Eosinophils (Bld) [#/Vol] 0 10*3/uL 0.0 - 0.5 10*3/uL [facility] Eosinophils/100 WBC (Bld) 0.1 % 0.0 - 6.0 % [facility] Erythrocyte distribution width (RBC) [Ratio] 23.2 % High 11.5 - 15.0 % [facility] Comment on above: Moderate Anisocytosi s seen on slide. Slight stomatocytes seen on slide. Slight ovalocytes seen on slide Hematocrit (Bld) [Volume fraction] 40.1 % 40.0 - 52.0 % [facility] Hemoglobin (Bld) [Mass/Vol] 12.6 g/dL Low 13.0 - 18.0 g/dL [facility] Immature granulocytes (Bld) [#/Vol] 0 10*3/uL NINF - 0.1 10*3/uL [facility] Immature granulocytes/100 WBC (Bld) 0.3 % 0.0 - 2.0 % [facility] Interpretation and review of laboratory results Abnormal [facility] Lymphocytes (Bld) [#/Vol] 1.2 10*3/uL 1.0 - 4.3 10*3/uL [facility] Lymphocytes/100 WBC (Bld) 13.7 % Low 15.0 - 45.0 % [facility] MCH (RBC) [Entitic mass] 22.6 pg Low 26.0 - 34.0 pg [facility] MCHC (RBC) [Mass/Vol] 31.4 % 30.5 - 36.0 % [facility] MCV (RBC) [Entitic vol] 71.9 fL Low 77.0 - 99.0 fL [facility] Monocytes (Bld) [#/Vol] 0.5 10*3/uL 0.0 - 0.9 10*3/uL [facility] Monocytes/100 WBC (Bld) 6.2 % 5.0 - 13.0 % [facility] Neutrophils (Bld) [#/Vol] 6.8 10*3/uL 1.8 - 7.5 10*3/uL [facility] Neutrophils/100 WBC (Bld) 78.7 % 38.0 - 82.0 % [facility] Nucleated RBC/100 WBC (Bld) [Ratio] 0 % [facility] Platelet mean volume (Bld) [Entitic vol] 9 fL 9.0 - 12.7 fL [facility] Comment on above: MPV is a calculated measurement using platelet volume ratio Platelets (Bld) [#/Vol] 321 10*3/uL 140 - 440 10*3/uL [facility] RBC (Bld) [#/Vol] 5.58 10*6/uL 4.40 - 5.9 0 10*6/uL [facility] WBC (Bld) [#/Vol] 8.7 10*3/uL 3.6 - 10.7 10*3/uL [facility] CBC WITH AUTO DIFFERENTIALon 11-29-2024 Basophils (Bld) [#/Vol] 0.1 10*3/uL Normal 0.0-0.2 [facility] Comment on above: Performed By: #### L [id number] ####Representative Government Relations: JACK ORTIZ ([id number])[facility]ENTERMain GUEVARA ([facility])[address] [place] [address] Basophils/100 WBC (Bld) 1.0 % Normal 0.0-2.0 [facility] Comment on above: Performed By: #### L [id number] ####Representative Government Relations: JACK ORTIZ ([phone])[facility]ENTERMain GUEVARA ([facility])[address] [place] [address] Eosinophils (Bld) [#/Vol] 0.0 10*3/uL Normal 0.0-0.5 [facility] Comment on above: Performed By: #### L [id number] ####Representative Government Relations: JACK ORTIZ ([phone])[facility] CENTERMian FLORES RITTMAN (SWRLAB)[address] [place] [address] Eosinophils/100 WBC (Bld) 0.1 % Normal 0.0-6.0 [facility] Comment on above: Performed By: #### L [id number] ####Representative Government Relations: JACK ORTIZ ([phone])[facility]ENTERMain FLORES RITTMAN (SWRLAB)[address] [place] [address] Erythrocyte distribution width (RBC) [Ratio] 23.2 % High 11.5-15.0 [facility] Comment on above: Result Comment: Mode rate Anisocytosis seen on slide.Slight stomatocytes seen on slide.Slight ovalocytes seen on slide Performed By: #### L [id number] ####Representative Government Relations: JACK ORTIZ ([phone])[facility]ENTERMain FLORES RITTMAN (SWRLAB)[address] [place] [address] Hematocrit (Bld) [Volume fraction] 40.1 % Normal 40.0-52.0 [facility] Comment on above: Performed By: #### L [id number] ####Representative Government Relations: JACK ORTIZ ([id number])[facility]ENTERMain FLORES RITTMAN (SWRLAB)[address] [place] [address] Hemoglobin (Bld) [Mass/Vol] 12.6 g/dL Low 13.0-18.0 [facility] Comment on above: Performed By: #### L [id number] ####Representative Government Relations: JACK ORTIZ ([phone])[facility]ENTERMain FLORES RITTMAN (SWRLAB)[address] [place] [address] IMMATURE GRANS % 0.3 % Normal 0.0-2.0 [facility] Comment on above: Performed By: #### L [id number] ####Representative Government Relations: JACK ORTIZ ([id number])[facility]ENTERMain FLORES RITTMAN (SWRLAB)[address] [place] [address] IMMATURE GRANS ABSOLUTE 0.0 10*3/uL Normal <0.1 [facility] Comment on above: Performed By: #### L [id number] ####Representative Government Relations: JACK ORTIZ ([phone])[facility]ENTERMain FLORES RITTMAN (SWRLAB)[address] [place] [address] Lymphocytes (Bld) [#/Vol] 1.2 10*3/uL Normal 1.0-4.3 [facility] Comment on above: Performed By: #### L [id number] ####Representative Government Relations: JACK ORTIZ ([id number])[facility]ENTERMain FLORES RITTMAN (SWRL[facility])[address] [place] [address] Lymphocytes/100 WBC (Bld) 13.7 % Low 15.0-45.0 [facility] Comment on above: Performed By: #### L [id number] ####Representative Government Relations: JACK ORTIZ ([id number])[facility]ENTERMain FLORES RITTMAN (SWRLAB)[address] [place] [address] MCH (RBC) [Entitic mass] 22.6 pg Low 26.0-34.0 [facility] Comment on above: Performed By: #### L [id number] ####Representative Government Relations: JACK ORTIZ ([id number])[facility]ENTERMain FLORES RITTMAN (SWRL[facility])[address] [place] [address] MCHC 31.4 % Normal 30.5-36.0 [facility] Comment on above: Performed By: #### L [id number] ####Representative Government Relations: JACK ORTIZ ([phone])[facility]ENTERMain FLORES RITTMAN (SWRLAB)[address] [place] [address] MCV (RBC) [Entitic vol] 71.9 fL Low 77.0-99.0 [facility] Comment on above: Performed By: #### L [id number] ####Representative Government Relations: JACK ORTIZ ([phone])DEANDRE FLORES RITTMAN (SWRLAB)[address] [place] [address] [place] Monocytes (Bld) [#/Vol] 0.5 10*3/uL Normal 0.0-0.9 [facility] Comment on above: Performed By: #### L [id number] ####Representative Government Relations: JACK ORTIZ ([id number])[facility] CENTERMani FLORES RITTMAN (SWRLAB)[address] [place] [address] [place] Monocytes/100 WBC (Bld) 6.2 % Normal 5.0-13.0 [facility] Comment on above: Performed By: #### L [id number] ####Representative Government Relations: JACK ORTIZ ([id number])[facility]ENTERMain FLORES RITTMAN (SWRLAB)[address] [place] [address] [place] NEUTROPHILS ABSOLUTE 6.8 10*3/uL Normal 1.8-7.5 [facility] Comment on above: Performed By: #### L [id number] ####Representative Government Relations: JACK ORTIZ ([phone])[facility]ENTERMain FLORES RITTMAN (SWRLAB)[address] [place] [address] [place] Neutrophils/100 WBC (Bld) 78.7 % Normal 38.0-82.0 [facility] Comment on above: Performed By: #### L [id number] ####Representative Government Relations: JACK ORTIZ ([id number])[facility]ENTERMain FLORES RITTMAN (SWRLAB)[address] [place] [address] [place] NRBC 0.0 /100 WBCs Normal 0.0-2.0 [facility] Comment on above: Performed By: #### L [id number] ####Representative Government Relations: JACK ORTIZ ([phone])[facility]ENTERMain FLORES RITTMAN (SWRLAB)[address] [place] [address] [place] Platelet mean volume (Bld) [Entitic vol] 9.0 fL Normal 9.0-12.7 [facility] Comment on above: Result Comment: MPV is a calculated measurement using platelet volume ratio Performed By: #### L [id number] ####Representative Government Relations: JACK ORTIZ ([id number])[facility]ENTERMain FLORES RITTMAN (SW[facility])[address] [place] [address] Platelets (Bld) [#/Vol] 321 10*3/uL Normal 140-440 [facility] Comment on above: Performed By: #### L [id number] ####Representative Government Relations: JACK ORTIZ ([id number])[facility]ENTERMain CISSETMAN (SWRLAB)[address] [place] [address] RBC (Bld) [#/Vol] 5.58 10*6/uL Normal 4.40-5.90 [facility] Comment on above: Performed By: #### L [id number] ####Representative Government Relations: JACK ORTIZ ([phone])[facility]ENTERMain FLORES RITTMAN (SWRL[facility])[address] [place] [address] WBC (Bld) [#/Vol] 8.7 10*3/uL Normal 3.6-10.7 [facility] Comment on above: Performed By: #### L [id number] ####Representative Government Relations: JACK ORTIZ ([id number])[facility]ENTERMain FLORES RITTMAN (SWRLAB)[address] [place] [address] COMPREHENSIVE METABOLIC PANE Eduardo 11-29-2024 Albumin [Mass/Vol] 3.2 g/dL Low 3.5-5.0 [facility] Comment on above: Performed By: #### L [id number] ####Representative Government Relations: JACK ORTIZ ([id number])[facility]ENTERMain FLORES RITTMAN (SWRLAB)[address] ALP [Catalytic activity/Vol] 124 U/L Normal 40-150 [facility] Comment on above: Performed By: #### L [id number] ####Representative Government Relations: JACK ORTIZ ([id number])[facility] CENTERA SANDRA RITTMAN (SWRLAB)[address] [place] [address] [place] ALT [Catalytic activity/Vol] 19 U/L Normal <40 [facility] Comment on above: Performed By: #### L [id number] ####Representative Government Relations: JACK ORTIZ ([phone])[facility]ENTERA SANDRA RITTMAN (SWRLAB)[address] Anion gap [Moles/Vol] 19 mmol/L High 3-13 [facility] Comment on above: Performed By: #### L [id number] ####Representative Government Relations: JACK ORTIZ ([phone])[facility]ENTERA SANDRA RITTMAN (SWRLAB)[address] AST [Catalytic activity/Vol] 55 U/L High <34 [facility] Comment on above: Performed By: #### L [id number] ####Representative Government Relations: JACK ORTIZ ([id number])[facility]ENTERA SANDRA RITTMAN (SWRLAB)[address] [place] [address] [place] Bilirubin [Mass/Vol] 0.4 mg/dL Normal <1.2 [facility] Comment on above: Performed By: #### L [id number] ####Representative Government Relations: JACK ORTIZ ([phone])[facility] CENTERA SANDRA RITTMAN (SWRLAB)[address] [place] [address] [place] Calcium [Mass/Vol] 8.0 mg/dL Low 8.4-10.2 [facility] Comment on above: Performed By: #### L [id number] ####Representative Government Relations: JACK ORTIZ ([phone])[facility]ENTERA SANDRA RITTMAN (SWRLAB)[address] [place] [address] [place] Chloride [Moles/Vol] 100 mmol/L Normal 98-107 [facility] Comment on above: Performed By: #### L [id number] ####Representative Government Relations: JACK ORTIZ ([id number])[facility]ENTERA SANDRA RITTMAN (SWRLAB)[address] [place] [address] [place] CO2 [Moles/Vol] 26 mmol/L Normal 22-29 [facility] Comment on above: Performed By: #### L [id number] ####Representative Government Relations: JACK ORTIZ ([id number])[facility]ENTERMain FLORES RITTMAN (SWRLAB)[address] [place] [address] [place] Creatinine [Mass/Vol] 0.76 mg/dL Normal 0.72-1.25 [facility] Comment on above: Performed By: #### L [id number] ####Representative Government Relations: JACK ORTIZ ([phone])[facility]ENTERMain FLORES RITTMAN (SWRL[facility])[address] [place] [address] GLOMERULAR FILTRATION RATE ML/MIN/1.73 SQ M.PREDICTED >90.0 Normal >60.0 [facility] Comment on above: Result Comment: Calc ulation based on the Chronic Kidney Disease Epidemiology Collaboration (CKD-EPI) equation refit without adjustment for race Performed By: #### L [id number] ####Representative Government Relations: JACK ORTIZ ([id number])[facility] CENTERMain FLORES RITTMAN (SWRL[facility])[address] [place] [address] [place] Glucose [Mass/Vol] 122 mg/dL High 74-100 [facility] Comment on above: Performed By: #### L [id number] ####Representative Government Relations: JACK ORTIZ ([id number])[facility] CENTERMain FLORES RITTMAN (SWRL[facility])[address] [place] [address] [place] Potassium [Moles/Vol] 2.6 mmol/L Critically low 3.5-5.1 [facility] Comment on above: Result Comment: [facility] potassium values may be up to 0.5 mmol/L lower than serum values. Performed By: #### L [id number] ####Representative Government Relations: JACK ORTIZ ([id number])[facility] CENTERMain TREJOSANDRA RITTMAN ([facility])[address] [place] [address] Protein [Mass/Vol] 6.9 g/dL Normal 6.4-8.3 [facility] Comment on above: Performed By: #### L [id number] ####Representative Government Relations: JACK ORTIZ ([phone])[facility]ENTERMain FLORES RITTMAN (SW[facility])[address] [place] [address] Sodium [Moles/Vol] 145 mmol/L Normal 136-145 [facility] Comment on above: Performed By: #### L [id number] ####Representative Government Relations: JACK ORTIZ ([phone])[facility] CENTERMain FLORES RITTMAN (SWRLAB)[address] [place] [address] Urea nitrogen [Mass/Vol] 19 mg/dL Normal 8-21 [facility] Comment on above: Performed By: #### L [id number] ####Representative Government Relations: JACK ORTIZ ([phone])[facility] SANDRABREANNA CISSETMAN (SWRLAB)[address] [place] [address] CT HEAD WO IV CONTRASTon CT HEAD WO IV CONTRAST Normal [facility] CT Head WO contraston 2024 No acute intracrania l hemorrhage or mass effect. Report Dictated on Electronically Signed By: Renato Rascon MD Electronically Signed Date/Time: 11/29/2024 6:49 PM [facility] 1980 [id number] Exam Date/Time: 11/29/2024 18:42 Procedure: CT HEAD WO IV CONTRAST Ordering Provider: FERNANDO NISHIT Reason For Exam: Trauma/Injury to Head CT HEAD: CLINICAL INDICATION: Headache, trauma TECHNIQUE: Transaxial CT sequence performed through the head with 3 mm reconstruction. Sagittal and Coronal reconstruction images included. Dose reduction was employed with automated exposure control. COMPARISON: None FINDINGS: Ventricles and sulci are normal in size and configuration for age. No extra-axial collection. No acute intracranial hemorrhage. No mass effect or midline shift. No CT evidence of an acute large territorial infarction. Imaged paranasal sinuses and mastoid air cells are well aerated. Calvarium is unremarkable. [facility] Renato Rascon MD - 11/29/2024 Patient Name: EL SMITH : 1980 Exam Date/Time: 11/29/2024 18:42 Procedure: CT HEAD WO IV CONTRAST Ordering Provider: FERNANDO NISHIT Reason For Exam: Trauma/Injury to Head CT HEAD: CLINICAL INDICATION: Headache, trauma TECHNIQUE: Transaxial CT sequence performed through the head with 3 mm reconstruction. Sagittal and Coronal reconstruction images included. Dose reduction was employed with automated exposure control. COMPARISON: None FINDINGS: Ventricles and sulci are normal in size and configuration for age. No extra-axial collection. No acute intracranial hemorrhage. No mass effect or midline shift. No CT evidence of an acute large territorial infarction. Imaged paranasal sinuses and mastoid air cells are well aerated. Calvarium is unremarkable. IMPRESSION: No acute intracranial hemorrhage or mass effect. Report Dictated on Electronically Signed By: Renato Rascon MD Electronically Signed Date/Time: 11/29/2024 6:49 PM EDT [facility] Radiology Study observation (narrative) [facility] CT Head WO contrastOrdered B y: Renato Rascon on 11-29-2024 [facility] [employer] Work Phone: CT ORBITS/SELLA/EAR WO IV CO NTRASTon 11-29-2024 CT ORBITS/SELLA/EAR WO IV CONTRAST Normal [facility] CT Orbit WO contraston 11-29 No acute abnormality of the orbits. Report Dictated on Electronically Signed By: Renato Rascon MD Electronically Signed Date/Time: 11/29/2024 6:55 PM EDT [facility] Patient Name: EL SMITH : 1980 Exam Date/Time: 11/29/2024 18:43 Procedure: CT ORBITS/SELLA/EAR WO IV CONTRAST Ordering Provider: FERNANDO NISHIT Reason For Exam: left eye injury CT ORBITS: CLINICAL INDICATION: Left eye injury. TECHNIQUE: Multidetector spiral transaxial sequence was performed through the orbits. Multiplanar reconstruction imaging was performed. Dose reduction was employed with automated exposure control. COMPARISON: 02/24/2024 FINDINGS: The globes are symmetrical and unremarkable. No intraconal or extraconal lesion is identified in the left or right. Normal symmetrical configuration of the extraocular muscles and optic nerves is noted. No orbital emphysema is identified. There is no evidence of fracture of the orbital hilario or rims. The remainder of the visualized osseous structures are unremarkable. There is posttraumatic deformities of the bilateral maxillary sinuses. The paranasal sinuses are clear. [facility] Renato Rascon MD - 11/29/2024 Patient Name: [facility] SM[facility] : 1980 [id number] Exam Date/Time: 11/29/2024 18:43 Procedure: CT ORBITS/SELLA/EAR WO IV CONTRAST Ordering Provider: FERNANDO NISHIT Reason For Exam: left eye injury CT ORBITS: CLINICAL INDICATION: Left eye injury. TECHNIQUE: Multidetector spiral transaxial sequence was performed through the orbits. Multiplanar reconstruction imaging was performed. Dose reduction was employed with automated exposure control. COMPARISON: 02/24/2024 FINDINGS: The globes are symmetrical and unremarkable. No intraconal or extraconal lesion is identified in the left or right. Normal symmetrical configuration of the extraocular muscles and optic nerves is noted. No orbital emphysema is identified. There is no evidence of fracture of the orbital hilario or rims. The remainder of the visualized osseous structures are unremarkable. There is posttraumatic deformities of the bilateral maxillary sinuses. The paranasal sinuses are clear. IMPRESSION: No acute abnormality of the orbits. Report Dictated on Electronically Signed By: Renato Rascon MD Electronically Signed Date/Time: 11/29/2024 6:55 PM EDT [facility] Radiology Study observation (narrative) [facility] Comprehensive metabolic 1998 panelon 11-29-2024 Albumin [Mass/Vol] 3.2 g/dL Low 3.5 - 5.0 g/dL [facility] ALP [Catalytic activity/Vol] 124 U/L 40 - 150 U/L [facility] ALT [Catalytic activity/Vol] 19 U/L NINF - 40 U/L [facility] Anion gap [Moles/Vol] 19 mmol/L High 3 - 13 mmol/L [facility] AST [Catalytic activity/Vol] 55 U/L High NINF - 34 U/L [facility] Bilirubin [Mass/Vol] 0.4 mg/dL NINF - 1.2 mg/dL [facility] Calcium [Mass/Vol] 8 mg/dL Low 8.4 - 10. 2 mg/dL [facility] Chloride [Moles/Vol] 100 mmol/L 98 - 10 7 mmol/L [facility] CO2 [Moles/Vol] 26 mmol/L 22 - 29 mmol/L [facility] Creatinine [Mass/Vol] 0.76 mg/dL 0.72 - 1.25 mg/dL [facility] GFR/1.73 sq M.predicted (S/P/Bld) [Vol rate/Area] - PINF [facility] Comment on above: Calculation based on the Chronic Kidney Disease Epidemiology Collaboration (CKD-EPI) equation refit without adjustment for race Glucose [Mass/Vol] 122 mg/dL High 74 - 100 mg/dL [facility] Interpretation and review of laboratory results Abnormal [facility] Potassium [Moles/Vol] 2.6 mmol/L Critically low 3.5 - 5.1 mmol/L [facility] Comment on above: Plasma potassium ema ues may be up to 0.5 mmol/L lower than serum values. Protein [Mass/Vol] 6.9 g/dL 6.4 - 8.3 g/dL [facility] Sodium [Moles/Vol] 145 mmol/L 136 - 145 mmol/L [facility] Urea nitrogen [Mass/Vol] 19 mg/dL 8 - 21 mg/dL [facility] ED Nursing Noteon 11-29-2024 ED Nursing Note Pt awake and sitting upright in bed. Mom gave him some ice water. Normal [facility] ED Nursing Note Pt continues to attempt to get out of bed frequently with security vehicle patrol officer sitting outside door. States he is leaving. Advised he cannot leave at this time. Normal [facility] ED Nursing Note Normal [facility] ED Nursing Note Pt has been out of bed 2 more times. chief accounting officer standing by. Pt redirectable and returns to room. Normal [facility] ED Nursing Note Normal [facility] ED Nursing Note Normal [facility] ED Provider Noteon ED Provider Note Normal [facility] LACTIC ACID WITH REFLEXon Lactate [Moles/Vol] 4.4 mmol/L Critically high 0.5-2.2 [facility] Comment on above: Performed By: #### L [id number] ####Representative Government Relations: JACK ORTIZ ([phone])[facility]ENTERMain GUEVARA (SWRLAB)[address] [place] [address] Laboratory - Chemistry and C hemistry - challengeon 11-29-2024 Lactate [Moles/Vol] 4.4 mmol/L Critically high 0.5 - 2.2 mmol/L [facility] Ammonia (P) [Moles/Vol] 28 umol/L 18 - 72 umol/L [facility] Glucose [Mass/Vol] 125 mg/dL High 70 - 100 mg/dL [facility] Laboratory - Chemistry and C hemistry - challengeOrdered By: Salina Calvo on 11-29-2024 CO2 [Moles/Vol] 26 mmol/L 24.0 - 28.0 mmol/L [facility] HCO3 (Bld) [Moles/Vol] 25 mmol/L 23.0 - 27.0 mmol/L [facility] Oxygen (Bld) [Partial pressure] 88 mm[Hg] mm(Hg) [facility] pH (Bld) 7.487 [pH] High 7.310 - 7.410 [facility] h Laboratory - Coagulationon 0 11-29-2024 PT Coag (Bld) [Time] 13 s High 9.0 - 12.[address] [facility] No Panel Informationon 11-29 Interpretation and review of laboratory results Abnormal [facility] Interpretation and review of laboratory results Normal [facility] Interpretation and review of laboratory results Abnormal [facility] Performed by: Deandre Guevara, [address] [place] [address] CLIA ID: [id number] [facility] No Panel InformationOrdered By: Salina Calvo on 11-29-2024 Amount Of Oxygen [address] [facility] alth BASE EXCESS 2 mmol/L -3.0 - 3.0 mmol/L [facility] Interpretation and review of laboratory results Abnormal [facility] pCO2 33 Low [facility] Source Of Oxygen None (Room Air) [facility] PROTHROMBIN TIMEon INR Coag (PPP) [Relative time] 1.2 {INR} High 0.9-1.1 [facility] Comment on above: Result Comment: Ba mmended Anticoagulant Therapy: SEE BELOW----- INR of 2.0 - 3.0 : - Prophylaxis of Venous Thrombosis (high-risk surgery) - Treatment of Venous Thrombosis - Treatment of Pulmonary Embolism (Includes tissue heart valves, Acute Myocardial Infarction to prevent systemic embolism, Valvular Heart Disease, and Atrial Fibrillation)----- INR of 2.5 - 3.5 : - Mechanical Prosthetic Valves (high risk) - If oral anticoagulant therapy is used to prevent Myocardial Infarction Performed By: #### Abdelrahman [id number], [id number] ####Representative Government Relations: JACK ORTIZ ([phone])[facility] SANDRA RITAYAAN (SWRLAB)[address] [place] [address] PT Coag (PPP) [Time] 13.0 s High 9.0-12.0 [facility] Comment on above: Performed By: #### Abdelrahman [id number], [id number] ####Representative Government Relations: JACK ORTIZ ([phone])[facility] SANDRAI-frontdeskZAIDA (SWRLAB)[address] [place] [address] [place] PT Coag (Bld) [Time]on 11-29 INR Coag (PPP) [Relative time] 1.2 {INR} High 0.9 - 1.1 [facility] Comment on above: Recommended Anticoag ulant Therapy: SEE BELOW ----- INR of 2.0 - 3.0 : - Prophylaxis of Venous Thrombosis (high-risk surgery) - Treatment of Venous Thrombosis - Treatment of Pulmonary Embolism (Includes tissue heart valves, Acute Myocardial Infarction to prevent systemic embolism, Valvular Heart Disease, and Atrial Fibrillation) ----- INR of 2.5 - 3.5 : - Mechanical Prosthetic Valves (high risk) - If oral anticoagulant therapy is used to prevent Myocardial Infarction Interpretation and review of laboratory results Abnormal [facility] Vital signsOrdered By: Leah delia Calvo on 11-29-2024 Oxygen saturation in Blood 97 % High 60.0 - 80.0 % [facility] XR Chest Single viewon 11-29 No radiographic acute cardiopulmonary process. Report Dictated on Electronically Signed By: Chela Cleaning MD Electronically Signed Date/Time: 11/29/2024 6:30 PM EDT [facility] Patient Name: EL SMITH : 1980 Exam Date/Time: 11/29/2024 18:20 Procedure: XR CHEST 1 VIEW Ordering Provider: FERNANDO NISHIT Reason For Exam: trauma INDICATION: Cough. Shortness of breath. Recent fall. VIEWS: Portable upright chest COMPARISON: 05/27/2024 FINDINGS: The trachea is midline. The heart is not enlarged. There is no confluent consolidation. The right hemidiaphragm is mildly elevated. [facility] Chela Cleaning MD - 11/29/2024 Patient Name: EL SMITH : 1980 Exam Date/Time: 11/29/2024 18:20 Procedure: XR CHEST 1 VIEW Ordering Provider: FERNANDO NISHIT Reason For Exam: trauma INDICATION: Cough. Shortness of breath. Recent fall. VIEWS: Portable upright chest COMPARISON: 05/27/2024 FINDINGS: The trachea is midline. The heart is not enlarged. There is no confluent consolidation. The right hemidiaphragm is mildly elevated. IMPRESSION: No radiographic acute cardiopulmonary process. Report Dictated on Electronically Signed By: Chela Cleaning MD Electronically Signed Date/Time: 11/29/2024 6:30 PM EDT [facility] Radiology Study observation (narrative) [facility] XR Chest Single viewOrdered By: Chela Cleaning on 11-29-2024 [facility] Work Phone: aPTT Coag (Bld) [Time]on aPTT Coag (PPP) [Time] 26.8 s 20.0 - 30.5 s [facility] Interpretation and review of laboratory results Normal [facility] NOTE: The therapeuti c time for Heparin anticoagulation, based on Xa activity inhibition, is an APTT of 46-80 seconds. [facility] 36on 11-12-2024 36 Tried to call 11/12/24 No Voice Mail Tried to call patient to schedule appt with Dr Choudhary to start at our office instead of IOP. If patient calls in when need to schedule appt With [facility] Normal [facility] Progress Noteon 10-17-2024 Progress Note Normal [facility] Progress Noteon 09-19-2024 Progress Note Normal [facility] Progress Noteon 08-29-2024 Progress Note Normal [facility] 36on 08-14-2024 36 Will refill at time of appointment so that all scripts are on same day. He has enough meds to get him to his next appointment with me. Normal [facility] ED Nursing Noteon 08-10-2024 ED Nursing Note Pt ambulatory to ED3 with mother with c/o facial swelling first noted this morning. Pt denies exposure to any potential allergens, no new meds/foods/soaps/loti ons/detergents. Normal [facility] ED Provider Noteon ED Provider Note Normal [facility] Progress Noteon 08-01-2024 Progress Note Normal [facility] 36on 07-30-2024 36 Meds refilled. Appt is on 08/01/24 Normal [facility] Progress Noteon 07-04-2024 Progress Note Normal [facility] Progress Noteon 06-20-2024 Progress Note Normal [facility] 36on 06-07-2024 36 Spoke with patient, let him know to check with Pharmacy. Patient does have appt scheduled for 06/20/24. Normal [facility] 36 Iop patient calling to say that pharmacy didn't have his medication that was supposed to be sent a couple of days ago?? Normal [facility] Progress Noteon 06-06-2024 Progress Note Normal [facility] 36on 05-30-2024 36 Normal [facility] Progress Noteon 05-30-2024 Progress Note Normal [facility] CBC W Auto Differential pane l (Bld)on 05-28-2024 Basophils (Bld) [#/Vol] 0 10*3/uL 0.0 - 0.2 10*3/uL [facility] Basophils/100 WBC (Bld) 0.7 % 0.0 - 2.0 % [facility] Eosinophils (Bld) [#/Vol] 0 10*3/uL 0.0 - 0.5 10*3/uL [facility] Eosinophils/100 WBC (Bld) 0.9 % 0.0 - 6.0 % [facility] Erythrocyte distribution width (RBC) [Ratio] 17.1 % High 11.5 - 15.0 % [facility] Hematocrit (Bld) [Volume fraction] 28.8 % Low 40.0 - 52.0 % [facility] Hemoglobin (Bld) [Mass/Vol] 9.5 g/dL Low 13.0 - 18.0 g/dL [facility] Immature granulocytes (Bld) [#/Vol] 0 10*3/uL NINF - 0.1 10*3/uL [facility] Immature granulocytes/100 WBC (Bld) 0.4 % 0.0 - 2.0 % [facility] Interpretation and review of laboratory results Abnormal [facility] Lymphocytes (Bld) [#/Vol] 1 10*3/uL 1.0 - 4.3 10*3/uL [facility] Lymphocytes/100 WBC (Bld) 21.5 % 15.0 - 45.0 % [facility] MCH (RBC) [Entitic mass] 26.4 pg 26.0 - 34.0 pg [facility] MCHC (RBC) [Mass/Vol] 33 % 30.5 - 36.0 % [facility] MCV (RBC) [Entitic vol] 80 fL 77.0 - 99.0 fL [facility] Monocytes (Bld) [#/Vol] 0.3 10*3/uL 0.0 - 0.9 10*3/uL [facility] Monocytes/100 WBC (Bld) 6.5 % 5.0 - 13.0 % [facility] Neutrophils (Bld) [#/Vol] 3.1 10*3/uL 1.8 - 7.5 10*3/uL [facility] Neutrophils/100 WBC (Bld) 70 % 38.0 - 82.0 % [facility] Nucleated RBC/100 WBC (Bld) [Ratio] 0 % [facility] Platelet mean volume (Bld) [Entitic vol] 8.7 fL Low 9.0 - 12.7 fL [facility] Platelets (Bld) [#/Vol] 137 10*3/uL Low 140 - 440 10*3/uL [facility] RBC (Bld) [#/Vol] 3.6 10*6/uL Low 4.40 - 5.9 0 10*6/uL [facility] WBC (Bld) [#/Vol] 4.5 10*3/uL 3.6 - 10.7 10*3/uL [facility] CBC WITH AUTO DIFFERENTIALon 05-28-2024 Basophils (Bld) [#/Vol] 0.0 10*3/uL Normal 0.0-0.2 [facility] Comment on above: Performed By: #### L [id number] ####Representative Government Relations: JACK ORTIZ ([phone])[facility])[address] [place] [address] Basophils/100 WBC (Bld) 0.7 % Normal 0.0-2.0 [facility] Comment on above: Performed By: #### L [id number] ####Representative Government Relations: JACK ORTIZ ([phone])[facility])[address] [place] [address] [place] Eosinophils (Bld) [#/Vol] 0.0 10*3/uL Normal 0.0-0.5 [facility] Comment on above: Performed By: #### L [id number] ####Representative Government Relations: JACK ORTIZ ([phone])[facility])[address] [place] [address] Eosinophils/100 WBC (Bld) 0.9 % Normal 0.0-6.0 [facility] Comment on above: Performed By: #### L [id number] ####Representative Government Relations: JACK [id number])[facility])[address] [place] [address] Erythrocyte distribution width (RBC) [Ratio] 17.1 % High 11.5-15.0 [facility] Comment on above: Performed By: #### L [id number] ####Representative Government Relations: JACK ORTIZ ([phone])[facility])[address] [place] [address] Hematocrit (Bld) [Volume fraction] 28.8 % Low 40.0-52.0 [facility] Comment on above: Performed By: #### L [id number] ####Representative Government Relations: JACK ORTIZ ([phone])[facility])[address] [place] [address] Hemoglobin (Bld) [Mass/Vol] 9.5 g/dL Low 13.0-18.0 [facility] Comment on above: Performed By: #### L [id number] ####Representative Government Relations: JACK ORTIZ ([phone])[facility] ([facility])[address] [place] [address] IMMATURE GRANS % 0.4 % Normal 0.0-2.0 [facility] Comment on above: Performed By: #### L [id number] ####Representative Government Relations: JACK ORTIZ ([phone])[facility])[address] [place] [address] IMMATURE GRANS ABSOLUTE 0.0 10*3/uL Normal <0.1 [facility] Comment on above: Performed By: #### L [id number] ####Representative Government Relations: JACK ORTIZ ([phone])[facility])[address] [place] [address] Lymphocytes (Bld) [#/Vol] 1.0 10*3/uL Normal 1.0-4.3 [facility] Comment on above: Performed By: #### L [id number] ####Representative Government Relations: JACK ORTIZ ([phone])[facility])[address] [place] [address] [place] Lymphocytes/100 WBC (Bld) 21.5 % Normal 15.0-45.0 [facility] Comment on above: Performed By: #### L [id number] ####Representative Government Relations: JACK ORTIZ ([phone])[facility] ([facility])[address] [place] [address] MCH (RBC) [Entitic mass] 26.4 pg Normal 26.0-34.0 [facility] Comment on above: Performed By: #### L [id number] ####Representative Government Relations: JACK ORTIZ ([phone])[facility] ([facility])[address] [place] [address] MCHC 33.0 % Normal 30.5-36.0 [facility] Comment on above: Performed By: #### L [id number] ####Representative Government Relations: JACK ORTIZ ([phone])[facility] ([facility])[address] [place] [address] MCV (RBC) [Entitic vol] 80.0 fL Normal 77.0-99.0 [facility] Comment on above: Performed By: #### L [id number] ####Representative Government Relations: JACK ORTIZ ([phone])[facility] ([facility])[address] [place] [address] Monocytes (Bld) [#/Vol] 0.3 10*3/uL Normal 0.0-0.9 [facility] Comment on above: Performed By: #### L [id number] ####Representative Government Relations: JACK ORTIZ ([phone])[facility] ([facility])[address] [place] [address] Monocytes/100 WBC (Bld) 6.5 % Normal 5.0-13.0 [facility] Comment on above: Performed By: #### L [id number] ####Representative Government Relations: JACK ORTIZ ([phone])[facility] ([facility])[address] [place] [address] NEUTROPHILS ABSOLUTE 3.1 10*3/uL Normal 1.8-7.5 [facility] Comment on above: Performed By: #### L [id number] ####Representative Government Relations: JACK ORTIZ ([id number])[facility] ([facility])[address] [place] [address] Neutrophils/100 WBC (Bld) 70.0 % Normal 38.0-82.0 [facility] Comment on above: Performed By: #### L [id number] ####Representative Government Relations: JACK ORTIZ ([phone])[facility] ([facility])[address] [place] [address] NRBC 0.0 /100 WBCs Normal 0.0-2.0 [facility] Comment on above: Performed By: #### L [id number] ####Representative Government Relations: JACK ORTIZ ([phone])[facility] ([facility])[address] [place] [address] Platelet mean volume (Bld) [Entitic vol] 8.7 fL Low 9.0-12.7 [facility] Comment on above: Performed By: #### L [id number] ####Representative Government Relations: JACK ORTIZ ([phone])[facility] ([facility])[address] [place] [address] Platelets (Bld) [#/Vol] 137 10*3/uL Low 140-440 [facility] Comment on above: Performed By: #### L [id number] ####Representative Government Relations: JACK ORTIZ ([phone])[facility] ([facility])[address] [place] [address] [place] RBC (Bld) [#/Vol] 3.60 10*6/uL Low 4.40-5.90 [facility] Comment on above: Performed By: #### L [id number] ####Representative Government Relations: JACK ORTIZ ([phone])[facility])[address] [place] [address] WBC (Bld) [#/Vol] 4.5 10*3/uL Normal 3.6-10.7 [facility] Comment on above: Performed By: #### L [id number] ####Representative Government Relations: JACK ORTIZ ([phone])[facility] ([facility])[address] [place] [address] COMPREHENSIVE METABOLIC PANE Eduardo 05-28-2024 Albumin [Mass/Vol] 2.8 g/dL Low 3.5-5.0 [facility] Comment on above: Performed By: #### L [id number], LAB17, [id number] ####Representative Government Relations: JACK ORTIZ ([id number])[facility] ([facility])[address] [place] [address] ALP [Catalytic activity/Vol] 152 U/L High 40-150 [facility] Comment on above: Performed By: #### L ABShravan, LAB17, [id number] ####Representative Government Relations: JACK ORTIZ ([phone])[facility] ([facility])[address] [place] [address] ALT [Catalytic activity/Vol] 9 U/L Normal <40 [facility] Comment on above: Performed By: #### Abdelrahman ABShravan, LAB17, [id number] ####Representative Government Relations: JACK ORTIZ ([id number])[facility] ([facility])[address] [place] [address] Anion gap [Moles/Vol] 9 mmol/L Normal 3-13 [facility] Comment on above: Performed By: #### L AB113, LAB17, [id number] ####Representative Government Relations: JACK ORTIZ ([id number])[facility] ([facility])[address] [place] [address] AST [Catalytic activity/Vol] 27 U/L Normal <34 [facility] Comment on above: Performed By: #### L AB113, LAB17, [id number] ####Representative Government Relations: JACK ORTIZ ([phone])[facility] ([facility])[address] [place] [address] Bilirubin [Mass/Vol] 1.2 mg/dL High <1.2 [facility] Comment on above: Performed By: #### L AB113, LAB17, [id number] ####Representative Government Relations: JACK ORTIZ ([phone])[facility] [place] [address] Calcium [Mass/Vol] 7.8 mg/dL Low 8.4-10.2 [facility] Comment on above: Performed By: #### Abdelrahman AB113, LAB17, [id number] ####Representative Government Relations: JACK ORTIZ ([id number])[facility])[address] [place] [address] Chloride [Moles/Vol] 101 mmol/L Normal 98-107 [facility] Comment on above: Performed By: #### Abdelrahman ABShravan, LAB17, [id number] ####Representative Government Relations: JACK ORTIZ ([id number])[facility] ([facility])[address] [place] [address] CO2 [Moles/Vol] 23 mmol/L Normal 22-29 [facility] Comment on above: Performed By: #### Abdelrahman GOMEZ, LAB17, [id number] ####Representative Government Relations: JACK ORTIZ ([id number])[facility])[address] [place] [address] Creatinine [Mass/Vol] 0.53 mg/dL Low 0.72-1.25 [facility] Comment on above: Performed By: #### Abdelrahman ABShravan, LAB17, [id number] ####Representative Government Relations: JACK ORTIZ ([phone])[facility] ([facility])[address] [place] [address] GLOMERULAR FILTRATION RATE ML/MIN/1.73 SQ M.PREDICTED >90.0 Normal >60.0 [facility] Comment on above: Result Comment: Calc ulation based on the Chronic Kidney Disease Epidemiology Collaboration (CKD-EPI) equation refit without adjustment for race Performed By: #### L ABShravan, LAB17, [id number] ####Representative Government Relations: JACK ORTIZ ([id number])[facility] ([facility])[address] [place] [address] [place] Glucose [Mass/Vol] 86 mg/dL Normal 74-100 [facility] Comment on above: Performed By: #### L ABShravan, LAB17, [id number] ####Representative Government Relations: JACK ORTIZ ([phone])[facility] ([facility])[address] [place] [address] Potassium [Moles/Vol] 3.1 mmol/L Low 3.5-5.1 [facility] Comment on above: Result Comment: [facility] potassium values may be up to 0.5 mmol/L lower than serum values. Performed By: #### L AB113, LAB17, [id number] ####Representative Government Relations: JACK ORTIZ ([id number])[facility] ([facility])[address] [place] [address] Protein [Mass/Vol] 5.6 g/dL Low 6.4-8.3 [facility] Comment on above: Performed By: #### L AB113, LAB17, [id number] ####Representative Government Relations: JACK ORTIZ ([phone])[facility])[address] [place] [address] Sodium [Moles/Vol] 133 mmol/L Low 136-145 [facility] Comment on above: Performed By: #### L AB113, LAB17, [id number] ####Representative Government Relations: JACK ORTIZ ([id number])[facility] ([facility])[address] [place] [address] Urea nitrogen [Mass/Vol] 17 mg/dL Normal 8-21 [facility] Comment on above: Performed By: #### L AB113, LAB17, [id number] ####Representative Government Relations: JACK ORTIZ ([id number])[facility])[address] [place] [address] Comprehensive metabolic 1998 panelon 05-28-2024 Albumin [Mass/Vol] 2.8 g/dL Low 3.5 - 5.0 g/dL [facility] ALP [Catalytic activity/Vol] 152 U/L High 40 - 150 U/L [facility] ALT [Catalytic activity/Vol] 9 U/L NINF - 40 U/L [facility] Anion gap [Moles/Vol] 9 mmol/L 3 - 13 mmol/L [facility] AST [Catalytic activity/Vol] 27 U/L NINF - 34 U/L [facility] Bilirubin [Mass/Vol] 1.2 mg/dL High NINF - 1.2 mg/dL [facility] Calcium [Mass/Vol] 7.8 mg/dL Low 8.4 - 10. 2 mg/dL [facility] Chloride [Moles/Vol] 101 mmol/L 98 - 10 7 mmol/L [facility] CO2 [Moles/Vol] 23 mmol/L 22 - 29 mmol/L [facility] Creatinine [Mass/Vol] 0.53 mg/dL Low 0.72 - 1.25 mg/dL [facility] GFR/1.73 sq M.predicted (S/P/Bld) [Vol rate/Area] - PINF [facility] Comment on above: Calculation based on the Chronic Kidney Disease Epidemiology Collaboration (CKD-EPI) equation refit without adjustment for race Glucose [Mass/Vol] 86 mg/dL 74 - 100 mg/dL [facility] Potassium [Moles/Vol] 3.1 mmol/L Low 3.5 - 5.1 mmol/L [facility] Comment on above: Plasma potassium ema ues may be up to 0.5 mmol/L lower than serum values. Protein [Mass/Vol] 5.6 g/dL Low 6.4 - 8.3 g/dL [facility] Sodium [Moles/Vol] 133 mmol/L Low 136 - 145 mmol/L [facility] Urea nitrogen [Mass/Vol] 17 mg/dL 8 - 21 mg/dL [facility] ED Nursing Noteon 05-28-2024 ED Nursing Note Patient signed AMA form, witnessed by this RN and Dr. Faria at bedside. Normal [facility] ED Nursing Note Pt taken to room 47 to change and then leave AMA Normal [facility] ED Nursing Note Green slip discontinued by Dr. Faria. Normal [facility] ED Nursing Note Dr. Faria at bedside . Pt leaving AMA. Normal [facility] ED Nursing Note Patient now refusing detox Dr Faria aware and is at bedside now. Normal [facility] ED Nursing Note Dr. Faria at bedside . Notified patient does not want detox. Normal [facility] ED Nursing Note Patient refusing to sign detox rules. States he does not want detox, just wanted his heart to calm down. Normal [facility] ED Nursing Note In for transport Normal [facility] ED Nursing Note Patient respirations even and unlabored. No acute distress noted. Steady gait with ambulation. Normal [facility] ED Nursing Note Pt up to bathroom Normal [facility] ED Nursing Note Patient sitting up i n bed, eating lunch. Visitor at bedside. Normal [facility] ED Nursing Note Food tray delivered Normal [facility] ED Nursing Note Report from DESIREE Zamora. Normal [facility] ED Nursing Note Visitor in room with pt Normal [facility] ED Nursing Note Physician in room with pt Normal [facility] ED Nursing Note Tech Ching in room t o replace tele leads Normal [facility] ED Nursing Note Breakfast tray delivered to pt Normal [facility] ED Nursing Note Ok to update his mother Ruth [phone]. Normal [facility] ED Nursing Note Rn Lalito in room Normal [facility] ED Nursing Note Tech Ching in room t o get labs on pt and replace tele monitor Normal [facility] ED Nursing Note RN Lalito in room Normal [facility] ED Nursing Note Report to Lalito INGRAM Normal [facility] ED Nursing Note Provider in room Normal [facility] ED Nursing Note Mundo RN at bedside Normal [facility] ED Nursing Note Kayleen RN at bedside for labs Normal [facility] ED Nursing Note Green slip on paper chart. Normal [facility] ED Nursing Note Normal [facility] ED Nursing Note Pt has pads on the rail for seizure precautions. Normal [facility] ED Nursing Note Bedside report given to Mundo RN and Kayleen RN. Pt placed on tele monitor in room 55 Normal [facility] ED Nursing Note Pt brought from room 39 to room 55 via bed stretcher w/ RN Mellisa and protective service. Pt transferred to bed 55 by Rns. Pt has 1 bag upon arrival to the unit. Normal [facility] ED Nursing Note Protective service a t bedside with this RN. Pt changed into 2 gowns. Skin assessment competed. Belongings secured. Pt wanded. Pt medicated with ativan for CIWA score. Normal [facility] ED Nursing Note Pt green slipped - Yoanna primer charger nurse aware Normal [facility] ED Nursing Note Dr Doherty at bedside to evaluate pt Normal [facility] ED Nursing Note Normal [facility] ED Nursing Note Pt settled back into bed, pt found to be talking in his sleep trying to get up. Tele leads fixed again. Normal [facility] - Chemistry and C hemistry - challengeon 05-28-2024 Magnesium [Mass/Vol] 1.5 mg/dL Low 1.6 - 2 .6 mg/dL [facility] MAGNESIUMon 05-28-2024 Magnesium [Mass/Vol] 1.5 mg/dL Low 1.6-2.6 [facility] Comment on above: Result Comment: PAGE Menezes COMMENTS:Higher values can be expected in females during menses. Performed By: #### L AB113, LAB17, [id number] ####Representative Government Relations: JACK ORTIZ ([phone])[facility])[address] [place] [address] Magnesium [Mass/Vol]on 05-28 Higher values can be expected in females during menses. [facility] No Panel Informationon 05-28 Interpretation and review of laboratory results Abnormal [facility] PHOSPHORUSon 05-28-2024 Phosphate [Mass/Vol] 3.5 mg/dL Normal 2.3-4.7 [facility] Comment on above: Performed By: #### L AB113, LAB17, [id number] ####Representative Government Relations: JACK ORTIZ ([phone])[facility] ([facility])[address] [place] [address] Phosphate [Moles/Vol]on 05-19 Interpretation and review of laboratory results Normal [facility] Phosphate [Mass/Vol] 3.5 mg/dL 2.3 - 4 .7 mg/dL [facility] Progress Noteon 05-28-2024 Progress Note Normal [facility] Progress Note Normal [facility] Progress Note Normal [facility] BASIC METABOLIC PANELon Anion gap [Moles/Vol] 13 mmol/L Normal 3-13 [facility] Comment on above: Performed By: #### L AB15, [id number], [id number] ####Representative Government Relations: JACK ORTIZ ([phone])[facility] ([facility])[address] [place] [address] Calcium [Mass/Vol] 8.1 mg/dL Low 8.4-10.2 [facility] Comment on above: Performed By: #### L AB15, [id number], [id number] ####Representative Government Relations: JACK ORTIZ ([phone])[facility] ([facility])[address] [place] [address] Chloride [Moles/Vol] 100 mmol/L Normal 98-107 [facility] Comment on above: Performed By: #### L AB15, [id number], [id number] ####Representative Government Relations: JACK ORTIZ ([id number])[facility] ([facility])[address] [place] [address] CO2 [Moles/Vol] 24 mmol/L Normal 22-29 [facility] Comment on above: Performed By: #### Abdelrahman AB15, [id number], [id number] ####Representative Government Relations: JACK OTRIZ ([id number])[facility] ([facility])[address] [place] [address] Creatinine [Mass/Vol] 0.57 mg/dL Low 0.72-1.25 [facility] Comment on above: Performed By: #### Abdelrahman AB15, [id number], [id number] ####Representative Government Relations: JACK ORTIZ ([phone])[facility] ([facility])[address] [place] [address] GLOMERULAR FILTRATION RATE ML/MIN/1.73 SQ M.PREDICTED >90.0 Normal >60.0 [facility] Comment on above: Result Comment: Calc ulation based on the Chronic Kidney Disease Epidemiology Collaboration (CKD-EPI) equation refit without adjustment for race Performed By: #### L AB15, [id number], [id number] ####Representative Government Relations: JACK ORTIZ ([id number])[facility] ([facility])[address] [place] [address] [place] Glucose [Mass/Vol] 102 mg/dL High 74-100 [facility] Comment on above: Performed By: #### L AB15, [id number], [id number] ####Representative Government Relations: JACK [id number])[facility] ([facility])[address] [place] [address] Potassium [Moles/Vol] 3.1 mmol/L Low 3.5-5.1 [facility] Comment on above: Result Comment: [facility] potassium values may be up to 0.5 mmol/L lower than serum values. Performed By: #### L AB15, [id number], [id number] ####Representative Government Relations: JACK ORTIZ ([phone])[facility])[address] [place] [address] Sodium [Moles/Vol] 137 mmol/L Normal 136-145 [facility] Comment on above: Performed By: #### L AB15, [id number], [id number] ####Representative Government Relations: JACK ORTIZ ([phone])[facility])[address] [place] [address] Urea nitrogen [Mass/Vol] 14 mg/dL Normal 8-21 [facility] Comment on above: Performed By: #### L AB15, [id number], [id number] ####Representative Government Relations: JACK ORTIZ ([phone])[address] Basic metabolic 1998 panelon 05-27-2024 Anion gap [Moles/Vol] 13 mmol/L 3 - 13 mmol/L [facility] Calcium [Mass/Vol] 8.1 mg/dL Low 8.4 - 10. 2 mg/dL [facility] Chloride [Moles/Vol] 100 mmol/L 98 - 10 7 mmol/L [facility] CO2 [Moles/Vol] 24 mmol/L 22 - 29 mmol/L [facility] Creatinine [Mass/Vol] 0.57 mg/dL Low 0.72 - 1.25 mg/dL [facility] GFR/1.73 sq M.predicted (S/P/Bld) [Vol rate/Area] - PINF [facility] Comment on above: Calculation based on the Chronic Kidney Disease Epidemiology Collaboration (CKD-EPI) equation refit without adjustment for race Glucose [Mass/Vol] 102 mg/dL High 74 - 100 mg/dL [facility] Interpretation and review of laboratory results Abnormal [facility] Potassium [Moles/Vol] 3.1 mmol/L Low 3.5 - 5.1 mmol/L [facility] Comment on above: Plasma potassium ema ues may be up to 0.5 mmol/L lower than serum values. Sodium [Moles/Vol] 137 mmol/L 136 - 145 mmol/L [facility] Urea nitrogen [Mass/Vol] 14 mg/dL 8 - 21 mg/dL [facility] CBC W Auto Differential pane l (Bld)on 05-27-2024 Basophils (Bld) [#/Vol] 0.1 10*3/uL 0.0 - 0.2 10*3/uL [facility] Basophils/100 WBC (Bld) 0.7 % 0.0 - 2.0 % [facility] Eosinophils (Bld) [#/Vol] 0 10*3/uL 0.0 - 0.5 10*3/uL [facility] Eosinophils/100 WBC (Bld) 0.1 % 0.0 - 6.0 % [facility] Erythrocyte distribution width (RBC) [Ratio] 17.6 % High 11.5 - 15.0 % [facility] Hematocrit (Bld) [Volume fraction] 34 % Low 40.0 - 52.0 % [facility] Hemoglobin (Bld) [Mass/Vol] 11.2 g/dL Low 13.0 - 18.0 g/dL [facility] Immature granulocytes (Bld) [#/Vol] 0 10*3/uL NINF - 0.1 10*3/uL [facility] Immature granulocytes/100 WBC (Bld) 0.3 % 0.0 - 2.0 % [facility] Interpretation and review of laboratory results Abnormal [facility] Lymphocytes (Bld) [#/Vol] 1.6 10*3/uL 1.0 - 4.3 10*3/uL [facility] Lymphocytes/100 WBC (Bld) 18.1 % 15.0 - 45.0 % [facility] MCH (RBC) [Entitic mass] 25.9 pg Low 26.0 - 34.0 pg [facility] MCHC (RBC) [Mass/Vol] 32.9 % 30.5 - 36.0 % [facility] MCV (RBC) [Entitic vol] 78.7 fL 77.0 - 99.0 fL [facility] Monocytes (Bld) [#/Vol] 0.5 10*3/uL 0.0 - 0.9 10*3/uL [facility] Monocytes/100 WBC (Bld) 5.3 % 5.0 - 13.0 % [facility] Neutrophils (Bld) [#/Vol] 6.6 10*3/uL 1.8 - 7.5 10*3/uL [facility] Neutrophils/100 WBC (Bld) 75.5 % 38.0 - 82.0 % [facility] Nucleated RBC/100 WBC (Bld) [Ratio] 0 % [facility] Platelet mean volume (Bld) [Entitic vol] 8.4 fL Low 9.0 - 12.7 fL [facility] Platelets (Bld) [#/Vol] 185 10*3/uL 140 - 440 10*3/uL [facility] RBC (Bld) [#/Vol] 4.32 10*6/uL Low 4.40 - 5.9 0 10*6/uL [facility] WBC (Bld) [#/Vol] 8.8 10*3/uL 3.6 - 10.7 10*3/uL [facility] Basophils (Bld) [#/Vol] 0.1 10*3/uL 0.0 - 0.2 10*3/uL [facility] Basophils/100 WBC (Bld) 0.8 % 0.0 - 2.0 % [facility] Eosinophils (Bld) [#/Vol] 0 10*3/uL 0.0 - 0.5 10*3/uL [facility] Eosinophils/100 WBC (Bld) 0.3 % 0.0 - 6.0 % [facility] Erythrocyte distribution width (RBC) [Ratio] 18 % High 11.5 - 15.0 % [facility] Hematocrit (Bld) [Volume fraction] 35.8 % Low 40.0 - 52.0 % [facility] Hemoglobin (Bld) [Mass/Vol] 12 g/dL Low 13.0 - 18.0 g/dL [facility] Immature granulocytes (Bld) [#/Vol] 0 10*3/uL NINF - 0.1 10*3/uL [facility] Immature granulocytes/100 WBC (Bld) 0.3 % 0.0 - 2.0 % [facility] Interpretation and review of laboratory results Abnormal [facility] Lymphocytes (Bld) [#/Vol] 0.7 10*3/uL Low 1.0 - 4.3 10*3/uL [facility] Lymphocytes/100 WBC (Bld) 10.5 % Low 15.0 - 45.0 % [facility] MCH (RBC) [Entitic mass] 26 pg 26.0 - 34.0 pg [facility] MCHC (RBC) [Mass/Vol] 33.5 % 30.5 - 36.0 % [facility] MCV (RBC) [Entitic vol] 77.5 fL 77.0 - 99.0 fL [facility] Monocytes (Bld) [#/Vol] 0.4 10*3/uL 0.0 - 0.9 10*3/uL [facility] Monocytes/100 WBC (Bld) 6 % 5.0 - 13.0 % [facility] Neutrophils (Bld) [#/Vol] 5.3 10*3/uL 1.8 - 7.5 10*3/uL [facility] Neutrophils/100 WBC (Bld) 82.1 % High 38.0 - 82.0 % [facility] Nucleated RBC/100 WBC (Bld) [Ratio] 0 % [facility] Platelet mean volume (Bld) [Entitic vol] 8.6 fL Low 9.0 - 12.7 fL [facility] Platelets (Bld) [#/Vol] 188 10*3/uL 140 - 440 10*3/uL [facility] RBC (Bld) [#/Vol] 4.62 10*6/uL 4.40 - 5.9 0 10*6/uL [facility] WBC (Bld) [#/Vol] 6.5 10*3/uL 3.6 - 10.7 10*3/uL [facility] CBC WITH AUTO DIFFERENTIALon 05-27-2024 Basophils (Bld) [#/Vol] 0.1 10*3/uL Normal 0.0-0.2 [facility] Comment on above: Performed By: #### L [id number] ####Representative [employer] Relations: JACK ORTIZ ([phone])[facility] ([address] Basophils/100 WBC (Bld) 0.7 % Normal 0.0-2.0 [facility] Comment on above: Performed By: #### L [id number] ####Representative [employer] Relations: JACK ORTIZ ([phone])[facility])[address] [place] [address] Eosinophils (Bld) [#/Vol] 0.0 10*3/uL Normal 0.0-0.5 [facility] Comment on above: Performed By: #### L [id number] ####Represent[employer] Relations: JACK ORTIZ ([phone])[facility])[address] [place] [address] Eosinophils/100 WBC (Bld) 0.1 % Normal 0.0-6.0 [facility] Comment on above: Performed By: #### L [id number] ####Represent[employer]: JACK ORTIZ ([id number])[address] Erythrocyte distribution width (RBC) [Ratio] 17.6 % High 11.5-15.0 [facility] Comment on above: Performed By: #### L [id number] ####Represent[employer] Relations: JACK ORTIZ ([phone])[address] Hematocrit (Bld) [Volume fraction] 34.0 % Low 40.0-52.0 [facility] Comment on above: Performed By: #### L [id number] ####Represent[employer] Relations: JACK ORTIZ ([phone])[address] Hemoglobin (Bld) [Mass/Vol] 11.2 g/dL Low 13.0-18.0 [facility] Comment on above: Performed By: #### L [id number] ####[employer]: JACK ORTIZ ([phone])[facility])[address] [place] [address] IMMATURE GRANS % 0.3 % Normal 0.0-2.0 [facility] Comment on above: Performed By: #### L [id number] ####Represent[employer]: JACK ORTIZ ([phone])[facility])[address] [place] [address] IMMATURE GRANS ABSOLUTE 0.0 10*3/uL Normal <0.1 [facility] Comment on above: Performed By: #### L [id number] ####Represent[employer] Relations: JACK ORTIZ ([phone])[facility])[address] [place] [address] Lymphocytes (Bld) [#/Vol] 1.6 10*3/uL Normal 1.0-4.3 [facility] Comment on above: Performed By: #### L [id number] ####Represent[employer] Relations: JACK ORTIZ ([phone])[facility])[address] [place] [address] Lymphocytes/100 WBC (Bld) 18.1 % Normal 15.0-45.0 [facility] Comment on above: Performed By: #### L [id number] ####Represent[employer]: JACK ORTIZ ([phone])[facility])[address] [place] [address] MCH (RBC) [Entitic mass] 25.9 pg Low 26.0-34.0 [facility] Comment on above: Performed By: #### L [id number] ####Represent[employer] Relations: JACK ORTIZ ([phone])[facility])[address] [place] [address] MCHC 32.9 % Normal 30.5-36.0 [facility] Comment on above: Performed By: #### L [id number] ####Represent[employer] Relations: JACK ORTIZ ([phone])[facility])[address] [place] [address] MCV (RBC) [Entitic vol] 78.7 fL Normal 77.0-99.0 [facility] Comment on above: Performed By: #### L [id number] ####Represent[employer] Relations: JACK ORTIZ ([phone])[facility])[address] [place] [address] [place] Monocytes (Bld) [#/Vol] 0.5 10*3/uL Normal 0.0-0.9 [facility] Comment on above: Performed By: #### L [id number] ####Represent[employer] Relations: JACK ORTIZ ([phone])[facility] ([facility])[address] [place] [address] Monocytes/100 WBC (Bld) 5.3 % Normal 5.0-13.0 [facility] Comment on above: Performed By: #### L [id number] ####Represent[employer] Relations: JACK ORTIZ ([phone])[facility] ([facility])[address] [place] [address] NEUTROPHILS ABSOLUTE 6.6 10*3/uL Normal 1.8-7.5 [facility] Comment on above: Performed By: #### L [id number] ####Represent[employer] Relations: JACK ORTIZ ([phone])[facility] ([facility])[address] [place] [address] Neutrophils/100 WBC (Bld) 75.5 % Normal 38.0-82.0 [facility] Comment on above: Performed By: #### L [id number] ####Represent[employer] Relations: JACK ORTIZ ([phone])[facility] ([facility])[address] [place] [address] NRBC 0.0 /100 WBCs Normal 0.0-2.0 [facility] Comment on above: Performed By: #### L [id number] ####Represent[employer] Relations: JACK ORTIZ ([phone])[facility] ([facility])[address] [place] [address] Platelet mean volume (Bld) [Entitic vol] 8.4 fL Low 9.0-12.7 [facility] Comment on above: Performed By: #### L [id number] ####Represent[employer] Relations: JACK ORTIZ ([phone])[facility] ([facility])[address] [place] [address] [place] Platelets (Bld) [#/Vol] 185 10*3/uL Normal 140-440 [facility] Comment on above: Performed By: #### L [id number] ####Represent[employer] Relations: JACK ORTIZ ([phone])[facility])[address] [place] [address] RBC (Bld) [#/Vol] 4.32 10*6/uL Low 4.40-5.90 [facility] Comment on above: Performed By: #### L [id number] ####Representative [employer] Relations: JACK ORTIZ ([phone])[facility])[address] [place] [address] WBC (Bld) [#/Vol] 8.8 10*3/uL Normal 3.6-10.7 [facility] Comment on above: Performed By: #### L [id number] ####Represent[employer] Relations: JACK ORTIZ ([phone])[facility])[address] [place] [address] Basophils (Bld) [#/Vol] 0.1 10*3/uL Normal 0.0-0.2 [facility] Comment on above: Performed By: #### L [id number] ####Representative [employer] Relations: JACK ORTIZ ([phone])[facility])[address] [place] [address] Basophils/100 WBC (Bld) 0.8 % Normal 0.0-2.0 [facility] Comment on above: Performed By: #### L [id number] ####Represent[employer] Relations: JACK ORTIZ ([phone])[facility])[address] [place] [address] Eosinophils (Bld) [#/Vol] 0.0 10*3/uL Normal 0.0-0.5 [facility] Comment on above: Performed By: #### L [id number] ####Represent[employer] Relations: JACK ORTIZ ([id number])[facility])[address] [place] [address] Eosinophils/100 WBC (Bld) 0.3 % Normal 0.0-6.0 [facility] Comment on above: Performed By: #### L [id number] ####Represent[employer] Relations: JACK ORTIZ ([phone])[address] Erythrocyte distribution width (RBC) [Ratio] 18.0 % High 11.5-15.0 [facility] Comment on above: Performed By: #### L [id number] ####Represent[employer] Relations: JACK ORTIZ ([id number])[facility])[address] [place] [address] Hematocrit (Bld) [Volume fraction] 35.8 % Low 40.0-52.0 [facility] Comment on above: Performed By: #### L [id number] ####Represent[employer] Relations: JACK ORTIZ ([phone])[address] Hemoglobin (Bld) [Mass/Vol] 12.0 g/dL Low 13.0-18.0 [facility] Comment on above: Performed By: #### L [id number] ####Represent[employer] Relations: JACK ORTIZ ([phone])[facility])[address] [place] [address] IMMATURE GRANS % 0.3 % Normal 0.0-2.0 [facility] Comment on above: Performed By: #### L [id number] ####Represent[employer] Relations: JACK ORTIZ ([phone])[address] IMMATURE GRANS ABSOLUTE 0.0 10*3/uL Normal <0.1 [facility] Comment on above: Performed By: #### L [id number] ####[employer] Relations: JACK ORTIZ ([phone])[address] Lymphocytes (Bld) [#/Vol] 0.7 10*3/uL Low 1.0-4.3 [facility] Comment on above: Performed By: #### L [id number] ####Represent[employer] Relations: JACK ORTIZ ([phone])[facility])[address] [place] [address] Lymphocytes/100 WBC (Bld) 10.5 % Low 15.0-45.0 [facility] Comment on above: Performed By: #### L [id number] ####Represent[employer] Relations: JACK ORTIZ ([phone])[facility])[address] [place] [address] MCH (RBC) [Entitic mass] 26.0 pg Normal 26.0-34.0 [facility] Comment on above: Performed By: #### L [id number] ####[employer] Relations: JACK ORTIZ ([phone])[facility])[address] [place] [address] MCHC 33.5 % Normal 30.5-36.0 [facility] Comment on above: Performed By: #### L [id number] ####Represent[employer] Relations: JACK ORTIZ ([phone])[facility])[address] [place] [address] MCV (RBC) [Entitic vol] 77.5 fL Normal 77.0-99.0 [facility] Comment on above: Performed By: #### L [id number] ####Represent[employer] Relations: JACK ORTIZ ([phone])[facility])[address] [place] [address] Monocytes (Bld) [#/Vol] 0.4 10*3/uL Normal 0.0-0.9 [facility] Comment on above: Performed By: #### L [id number] ####Represent[employer] Relations: JACK ORTIZ ([id number])[facility])[address] [place] [address] Monocytes/100 WBC (Bld) 6.0 % Normal 5.0-13.0 [facility] Comment on above: Performed By: #### L [id number] ####[employer] Relations: JACK ORTIZ ([phone])[facility])[address] [place] [address] NEUTROPHILS ABSOLUTE 5.3 10*3/uL Normal 1.8-7.5 [facility] Comment on above: Performed By: #### L [id number] ####Represent[employer] Relations: JACK ORTIZ ([phone])[facility] ([facility])[address] [place] [address] Neutrophils/100 WBC (Bld) 82.1 % High 38.0-82.0 [facility] Comment on above: Performed By: #### L [id number] ####Represent[employer] Relations: JACK ORTIZ ([phone])[facility] ([facility])[address] [place] [address] NRBC 0.0 /100 WBCs Normal 0.0-2.0 [facility] Comment on above: Performed By: #### L [id number] ####Represent[employer] Relations: JACK ORTIZ ([id number])[facility] ([facility])[address] [place] [address] Platelet mean volume (Bld) [Entitic vol] 8.6 fL Low 9.0-12.7 [facility] Comment on above: Performed By: #### L [id number] ####Represent[employer] Relations: JACK ORTIZ ([phone])[facility] ([facility])[address] [place] [address] [place] Platelets (Bld) [#/Vol] 188 10*3/uL Normal 140-440 [facility] Comment on above: Performed By: #### L [id number] ####[employer] Relations: JACK ORTIZ ([id number])[facility] ([facility])[address] [place] [address] [place] RBC (Bld) [#/Vol] 4.62 10*6/uL Normal 4.40-5.90 [facility] Comment on above: Performed By: #### L [id number] ####Represent[employer] Relations: JACK ORTIZ ([phone])[facility])[address] [place] [address] [place] WBC (Bld) [#/Vol] 6.5 10*3/uL Normal 3.6-10.7 [facility] Comment on above: Performed By: #### L [id number] ####Represent[employer] Relations: JACK ORTIZ ([id number])[facility] ([facility])[address] [place] [address] [place] CKon 05-27-2024 CK [Catalytic activity/Vol] 69 U/L Normal 30-185 [facility] Comment on above: Performed By: #### L [id number], LAB17, LAB99, LAB46, MMS101, LAB62 ####[employer] Relations: JACK ORTIZ ([phone])[facility] ([facility])[address] [place] [address] COMPREHENSIVE METABOLIC PANE Eduardo 05-27-2024 Albumin [Mass/Vol] 3.3 g/dL Low 3.5-5.0 [facility] Comment on above: Performed By: #### L AB103, [id number], LAB17 ####[employer] Relations: JACK ORTIZ ([id number])[facility] ([facility])[address] [place] [address] ALP [Catalytic activity/Vol] 159 U/L High 40-150 [facility] Comment on above: Performed By: #### L AB103, [id number], LAB17 ####[employer] Relations: JACK ORTIZ ([phone])[facility] ([facility])[address] [place] [address] ALT [Catalytic activity/Vol] 12 U/L Normal <40 [facility] Comment on above: Performed By: #### L AB103, [id number], LAB17 ####[employer] Relations: JACK ORTIZ ([id number])[facility] ([facility])[address] [place] [address] Anion gap [Moles/Vol] 15 mmol/L High 3-13 [facility] Comment on above: Performed By: #### L AB103, [id number], LAB17 ####[employer] Relations: JACK ORTIZ ([phone])[facility])[address] [place] [address] AST [Catalytic activity/Vol] 31 U/L Normal <34 [facility] Comment on above: Performed By: #### L AB103, [id number], LAB17 ####[employer] Relations: JACK ORTIZ ([phone])[facility])[address] [place] [address] Bilirubin [Mass/Vol] 0.8 mg/dL Normal <1.2 [facility] Comment on above: Performed By: #### Abdelrahman ABTho, [id number], LAB17 ####[employer] Relations: JACK ORTIZ ([phone])[facility] ([facility])[address] [place] [address] Calcium [Mass/Vol] 8.0 mg/dL Low 8.4-10.2 [facility] Comment on above: Performed By: #### Abdelrahman AB103, [id number], LAB17 ####[employer] Relations: JACK ORTIZ ([id number])[facility] ([facility])[address] [place] [address] Chloride [Moles/Vol] 101 mmol/L Normal 98-107 [facility] Comment on above: Performed By: #### Abdelrahman AB103, [id number], LAB17 ####[employer] Relations: JACK ORTIZ ([phone])[facility] ([facility])[address] [place] [address] CO2 [Moles/Vol] 23 mmol/L Normal 22-29 [facility] Comment on above: Performed By: #### Abdelrahman AB103, [id number], LAB17 ####[employer] Relations: JACK ORTIZ ([phone])[facility] ([facility])[address] [place] [address] Creatinine [Mass/Vol] 0.58 mg/dL Low 0.72-1.25 [facility] Comment on above: Performed By: #### L AB103, [id number], LAB17 ####[employer] Relations: JACK ORTIZ ([phone])[facility] ([facility])[address] [place] [address] GLOMERULAR FILTRATION RATE ML/MIN/1.73 SQ M.PREDICTED >90.0 Normal >60.0 [facility] Comment on above: Result Comment: Calc ulation based on the Chronic Kidney Disease Epidemiology Collaboration (CKD-EPI) equation refit without adjustment for race Performed By: #### L YOAV, [id number], LAB17 ####[employer] Relations: JACK ORTIZ ([id number])[facility])[address] [place] [address] Glucose [Mass/Vol] 102 mg/dL High 74-100 [facility] Comment on above: Performed By: #### L 103, [id number], LAB17 ####[employer] Relations: JACK ORTIZ ([id number])[facility])[address] [place] [address] Potassium [Moles/Vol] 2.9 mmol/L Low 3.5-5.1 [facility] Comment on above: Result Comment: [facility] potassium values may be up to 0.5 mmol/L lower than serum values. Performed By: #### Abdelrahman CASON, [id number], LAB17 ####[employer] Relations: JACK ORTIZ ([phone])[facility] ([facility])[address] [place] [address] Protein [Mass/Vol] 6.5 g/dL Normal 6.4-8.3 [facility] Comment on above: Performed By: #### Abdelrahman MOSES103, [id number], LAB17 ####[employer] Relations: JACK ORTIZ ([phone])[facility])[address] [place] [address] [place] Sodium [Moles/Vol] 139 mmol/L Normal 136-145 [facility] Comment on above: Performed By: #### L AB103, [id number], LAB17 ####[employer] Relations: JACK ORTIZ ([phone])[facility])[address] [place] [address] Urea nitrogen [Mass/Vol] 13 mg/dL Normal 8-21 [facility] Comment on above: Performed By: #### L AB103, [id number], LAB17 ####[employer] Relations: JACK ORTIZ ([id number])[facility] ([facility])[address] [place] [address] Albumin [Mass/Vol] 3.6 g/dL Normal 3.5-5.0 [facility] Comment on above: Performed By: #### L [id number], LAB17, LAB99, LAB46, [id number], LAB62 ####[employer]: JACK ORTIZ ([phone])[facility] ([facility])[address] [place] [address] ALP [Catalytic activity/Vol] 169 U/L High 40-150 [facility] Comment on above: Performed By: #### L [id number], LAB17, LAB99, LAB46, [id number], LAB62 ####[employer]: JACK ORTIZ ([phone])[facility] ([facility])[address] [place] [address] ALT [Catalytic activity/Vol] 14 U/L Normal <40 [facility] Comment on above: Performed By: #### L [id number], LAB17, LAB99, LAB46, [id number], LAB62 ####[employer]: JACK ORTIZ ([id number])[facility] ([facility])[address] [place] [address] Anion gap [Moles/Vol] 19 mmol/L High 3-13 [facility] Comment on above: Performed By: #### L [id number], LAB17, LAB99, LAB46, [id number], LAB62 ####[employer] Relations: JACK ORTIZ ([phone])[facility] ([facility])[address] [place] [address] AST [Catalytic activity/Vol] 33 U/L Normal <34 [facility] Comment on above: Performed By: #### L [id number], LAB17, LAB99, LAB46, [id number], LAB62 ####[employer]: JACK ORTIZ ([id number])[facility] ([facility])[address] [place] [address] Bilirubin [Mass/Vol] 0.9 mg/dL Normal <1.2 [facility] Comment on above: Performed By: #### L [id number], LAB17, LAB99, LAB46, [id number], LAB62 ####[employer]: JACK ORTIZ ([phone])[facility])[address] [place] [address] Calcium [Mass/Vol] 8.5 mg/dL Normal 8.4-10.2 [facility] Comment on above: Performed By: #### L [id number], LAB17, LAB99, LAB46, [id number], LAB62 ####[employer]: JACK ORTIZ ([phone])[facility] ([facility])[address] [place] [address] Chloride [Moles/Vol] 99 mmol/L Normal 98-107 [facility] Comment on above: Performed By: #### L [id number], LAB17, LAB99, LAB46, GBS004, LAB62 ####[employer] Relations: JACK ORTIZ ([id number])[facility] ([facility])[address] [place] [address] CO2 [Moles/Vol] 22 mmol/L Normal 22-29 [facility] Comment on above: Performed By: #### L [id number], LAB17, LAB99, LAB46, JCM297, LAB62 ####[employer]: JACK ORTIZ ([phone])[facility] ([facility])[address] [place] [address] Creatinine [Mass/Vol] 0.62 mg/dL Low 0.72-1.25 [facility] Comment on above: Performed By: #### L [id number], LAB17, LAB99, LAB46, LIE514, LAB62 ####[employer]: JACK ORTIZ ([phone])[facility])[address] [place] [address] GLOMERULAR FILTRATION RATE ML/MIN/1.73 SQ M.PREDICTED >90.0 Normal >60.0 [facility] Comment on above: Result Comment: Calc ulation based on the Chronic Kidney Disease Epidemiology Collaboration (CKD-EPI) equation refit without adjustment for race Performed By: #### L [id number], LAB17, LAB99, LAB46, [id number], LAB62 ####[employer]: JACK ORTIZ ([phone])[facility])[address] [place] [address] Glucose [Mass/Vol] 104 mg/dL High 74-100 [facility] Comment on above: Performed By: #### L [id number], LAB17, LAB99, LAB46, [id number], LAB62 ####[employer]: JACK ORTIZ ([id number])[facility])[address] [place] [address] Potassium [Moles/Vol] 2.6 mmol/L Critically low 3.5-5.1 [facility] Comment on above: Result Comment: [facility]as [facility] potassium values may be up to 0.5 mmol/L lower than serum values. Performed By: #### L [id number], LAB17, LAB99, LAB46, [id number], LAB62 ####[employer]: JACK ORTIZ ([phone])[facility])[address] [place] [address] Protein [Mass/Vol] 7.0 g/dL Normal 6.4-8.3 [facility] Comment on above: Performed By: #### L [id number], LAB17, LAB99, LAB46, [id number], LAB62 ####[employer]: JACK OTRIZ ([phone])[address] Sodium [Moles/Vol] 140 mmol/L Normal 136-145 [facility] Comment on above: Performed By: #### L [id number], LAB17, LAB99, LAB46, ZMF150, LAB62 ####[employer]: JACK ORTIZ ([phone])[facility])[address] [place] [address] Urea nitrogen [Mass/Vol] 13 mg/dL Normal 8-21 [facility] Comment on above: Performed By: #### L [id number], LAB17, LAB99, LAB46, [id number], LAB62 ####[employer]: AJCK ORTIZ ([id number])[facility] ([facility])[address] [place] [address] Comprehensive metabolic 1998 panelon 05-27-2024 Albumin [Mass/Vol] 3.3 g/dL Low 3.5 - 5.0 g/dL [facility] [place] ALP [Catalytic activity/Vol] 159 U/L High 40 - 150 U/L [facility] ALT [Catalytic activity/Vol] 12 U/L NINF - 40 U/L [facility] Anion gap [Moles/Vol] 15 mmol/L High 3 - 13 mmol/L [facility] AST [Catalytic activity/Vol] 31 U/L NINF - 34 U/L [facility] [place] Bilirubin [Mass/Vol] 0.8 mg/dL NINF - 1.2 mg/dL [facility] [place] Calcium [Mass/Vol] 8 mg/dL Low 8.4 - 10. 2 mg/dL [facility] [place] Chloride [Moles/Vol] 101 mmol/L 98 - 10 7 mmol/L [facility] [place] CO2 [Moles/Vol] 23 mmol/L 22 - 29 mmol/L [facility] [place] Creatinine [Mass/Vol] 0.58 mg/dL Low 0.72 - 1.25 mg/dL [facility] [place] GFR/1.73 sq M.predicted (S/P/Bld) [Vol rate/Area] - PINF [facility] Comment on above: Calculation based on the Chronic Kidney Disease Epidemiology Collaboration (CKD-EPI) equation refit without adjustment for race Glucose [Mass/Vol] 102 mg/dL High 74 - 100 mg/dL [facility] [place] Interpretation and review of laboratory results Abnormal [facility] Potassium [Moles/Vol] 2.9 mmol/L Low 3.5 - 5.1 mmol/L [facility] Comment on above: Plasma potassium ema ues may be up to 0.5 mmol/L lower than serum values. Protein [Mass/Vol] 6.5 g/dL 6.4 - 8.3 g/dL [facility] [place] Sodium [Moles/Vol] 139 mmol/L 136 - 145 mmol/L [facility] Urea nitrogen [Mass/Vol] 13 mg/dL 8 - 21 mg/dL [facility] Comprehensive metabolic 1997 panelOrdered By: Jaleesa Ryan on 05-27-2024 Albumin [Mass/Vol] 3.6 g/dL 3.5 - 5.0 g/dL [facility] ALP [Catalytic activity/Vol] 169 U/L High 40 - 150 U/L [facility] ALT [Catalytic activity/Vol] 14 U[facility]L [facility] Anion gap [Moles/Vol] 19 mmol/L High 3 - 13 mmol/L [facility] AST [Catalytic activity/Vol] 33 U/L NINF - 34 U/L [facility] Bilirubin [Mass/Vol] 0.9 mg/dL NINF - 1.2 mg/dL [facility] Calcium [Mass/Vol] 8.5 mg/dL 8.4 - 10. 2 mg/dL [facility] Chloride [Moles/Vol] 99 mmol/L 98 - 10 7 mmol/L [facility] CO2 [Moles/Vol] 22 mmol/L 22 - 29 mmol/L [facility] Creatinine [Mass/Vol] 0.62 mg/dL Low 0.72 - 1.25 mg/dL [facility] GFR/1.73 sq M.predicted (S/P/Bld) [Vol rate/Area] - PINF [facility] Comment on above: Calculation based on the Chronic Kidney Disease Epidemiology Collaboration (CKD-EPI) equation refit without adjustment for race Glucose [Mass/Vol] 104 mg/dL High 74 - 100 mg/dL [facility] Interpretation and review of laboratory results Abnormal [facility] Potassium [Moles/Vol] 2.6 mmol/L Critically low 3.5 - 5.1 mmol/L [facility] Comment on above: Plasma potassium ema ues may be up to 0.5 mmol/L lower than serum values. Protein [Mass/Vol] 7 g/dL 6.4 - 8.3 g/dL [facility] Sodium [Moles/Vol] 140 mmol/L 136 - 145 mmol/L [facility] Urea nitrogen [Mass/Vol] 13 mg/dL 8 - 21 mg/dL [facility] Consulton 05-27-2024 Consult Normal [facility] DRUGS OF ABUSEon 05-27-2024 AMPHETAMINE SCREEN Negative Normal [facility] Comment on above: Performed By: #### L [id number] ####Representative Government Relations: JACK ORTIZ ([id number])[facility] ([facility])[address] [place] [address] BARBITURATES SCREEN Positive Normal [facility] Comment on above: Performed By: #### L [id number] ####Representative Government Relations: JACK ORTIZ ([id number])[facility] ([facility])[address] [place] [address] BENZODIAZEPINE SCREEN Negative Normal [facility] Comment on above: Performed By: #### L [id number] ####Representative Government Relations: JACK ORTIZ ([id number])[facility] ([facility])[address] [place] [address] COCAINE METAB. SCREEN Negative Normal [facility] Comment on above: Performed By: #### L [id number] ####Representative Government Relations: JACK ORTIZ ([phone])[facility])[address] [place] [address] FENTANYL SCREEN, UR QUAL Negative Normal [facility] Comment on above: Result Comment: PAGE Menezes COMMENTS:The expected value for all of the drugs listed above is Negative.The following drugs or drug groups have been screened for by Immunoassay at the following thresholds:Amphetamine class (1000 ng/mL)Barbiturates (200 ng/mL)Benzodiazepines (200 ng/mL)Cocaine (300 ng/mL)Methadone (300 ng/mL)Opiates (300 ng/mL)Oxycodone (100 ng/mL)PCP (25 ng/mL)Fentanyl (1.0 ng/ml)NOTE: These results are for medical treatment only. Analysis performed using non-forensic procedures. POSITIVE results are NOT confirmed by a more specificalternative method unless requested. If confirmation is needed, request confirmation under separate order. Performed By: #### L [id number] ####Representative Government Relations: JACK ORTIZ ([id number])[facility] ([facility])[address] [place] [address] METHADONE SCREEN Negative Normal [facility] Comment on above: Performed By: #### L [id number] ####Representative Government Relations: JACK ORTIZ ([phone])[facility] ([facility])[address] [place] [address] OPIATES SCREEN Negative Normal [facility] Comment on above: Performed By: #### L [id number] ####Representative Government Relations: JACK ORTIZ ([id number])[facility] ([facility])[address] [place] [address] OXYCODONE SCREEN Negative Normal [facility] Comment on above: Performed By: #### L [id number] ####Representative Government Relations: JACK ORTIZ ([id number])[facility] ([facility])[address] [place] [address] PHENCYCLIDINE SCREEN Negative Normal [facility] Comment on above: Performed By: #### L [id number] ####Representative Government Relations: JACK ORTIZ ([phone])[facility])[address] [place] [address] ECG 12-LEADon 05-27-2024 ECG 12-LEAD IMPRESSION: EKG shows sinus tachycardia, normal axis, normal MI QRS and prolonged QTC intervals, no STEMI, no SVT, no LVH. 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 ED Nursing Noteon 05-27-2024 ED Nursing Note Report to DESIREE Pak [facility] ED Nursing Note Report to DESIREE Luevano [facility] ED Nursing Note Lab called with potassium 2.6, same reported to Dr. Nair and Dr. Humphrey via secure chat [facility] ED Provider Noteon ED Provider Note Normal [facility] ETHANOLon 05-27-2024 ETHANOL IN SER/PLAS 136 mg/dL High <10 [facility] Comment on above: Result Comment: ORDE R COMMENTS:STORYBOARD ARTIST depression is seen >100 mg/dL.NOTE: This result is for medical treatment only. Analysis performed using non-forensic procedures. Performed By: #### L [id number], [id number], LAB99, LAB46, [id number], [id number] ####Representative Government Relations: JACK ORTIZ ([phone])[facility] ([facility])[address] [place] [address] Ethanol (Bld) [Mass/Vol]on 0 05-27-2024 Ethanol [Mass/Vol] 136 mg/dL High NINF - 10 mg/dL [facility] STORYBOARD ARTIST depression is seen >100 mg/dL. NOTE: This result is for medical treatment only. Analysis performed using non-forensic procedures. [facility] FREE T4on 05-27-2024 Free T4 [Mass/Vol] 0.99 ng/dL Normal 0.70-1.48 [facility] Comment on above: Performed By: #### L [id number], [id number] ####Representative Government Relations: JACK ORTIZ ([phone])[facility])[address] [place] [address] Free T4 [Mass/Vol]on 025 Free T4 Dialysis [Mass/Vol] 0.99 ng/dL 0.70 - 1.48 ng/dL [facility] HIGH SENSITIVITY TROPONIN, S ERIAL BASELINEon 05-27-2024 TROPONIN HS SERIAL BASELINE 4 ng/L Normal <=35 [facility] Comment on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 Normal [facility] Progress Note Normal [facility] Progress Note Normal [facility] Vital signsOrdered By: Hitesh Corona on 03-06-2024 Heart rate 89 /min bpm [facility] Work Phone: XR Foot - bilateral 3 Viewso n 03-06-2024 Subacute partially healed fracture of the second metatarsal neck. RIGHT FOOT: CLINICAL INDICATION: pain TECHNIQUE: AP, lateral, and oblique COMPARISON: None. FINDINGS: Chronic healed fracture deformity of the third metatarsal neck. No acute fracture. No dislocation. No worrisome osseous lesion. No significant soft tissue abnormality. IMPRESSION: No acute osseous abnormality. Report Dictated on Electronically Signed By: Kamla Sawant MD Electronically Signed Date/Time: 03/06/2024 12:53 AM EST [facility] Patient Name: EL SMITH : 1980 Exam Date/Time: 03/06/2024 00:15 Procedure: XR FOOT 3+ VIEWS BILATERAL Ordering Provider: BRAXTON J Reason For Exam: pain LEFT FOOT: CLINICAL INDICATION: pain TECHNIQUE: AP, lateral, and oblique COMPARISON: None. FINDINGS: Subacute appearing fracture of the second metatarsal neck. Up to 2 mm of displacement. Fracture appears partially healed, with prominent callus formation. No acute fracture. No dislocation. No worrisome osseous lesion. No significant soft tissue abnormality. [facility] Kamla Sawant M D - 03/06/2024 [facility] 1980 [id number] Exam Date/Time: 03/06/2024 00:15 Procedure: XR FOOT 3+ VIEWS BILATERAL Ordering Provider: BRAXTON J Reason For Exam: pain LEFT FOOT: CLINICAL INDICATION: pain TECHNIQUE: AP, lateral, and oblique COMPARISON: None. FINDINGS: Subacute appearing fracture of the second metatarsal neck. Up to 2 mm of displacement. Fracture appears partially healed, with prominent callus formation. No acute fracture. No dislocation. No worrisome osseous lesion. No significant soft tissue abnormality. IMPRESSION: Subacute partially healed fracture of the second metatarsal neck. RIGHT FOOT: CLINICAL INDICATION: pain TECHNIQUE: AP, lateral, and oblique COMPARISON: None. FINDINGS: Chronic healed fracture deformity of the third metatarsal neck. No acute fracture. No dislocation. No worrisome osseous lesion. No significant soft tissue abnormality. IMPRESSION: No acute osseous abnormality. Report Dictated on Electronically Signed By: Kamla Sawant MD Electronically Signed Date/Time: 03/06/2024 12:53 AM EST [facility] Radiology Study observation (narrative) [facility] alth XR Humerus - right Viewson 1 05-06-2023 Redemonstration of a mildly displaced fracture of the superolateral humeral head.. Report Dictated on Electronically Signed By: Kamla Sawant MD Electronically Signed Date/Time: 03/06/2024 12:58 AM [facility] [employer] [facility] Patient Name: EL SMITH : 1980 Exam Date/Time: 03/06/2024 00:15 Procedure: XR HUMERUS RIGHT Ordering Provider: BRAXTON J Reason For Exam: pain, fx RIGHT HUMERUS: CLINICAL INDICATION: pain, fx TECHNIQUE: AP and lateral COMPARISON: Right shoulder radiographs from 03/05/2024 FINDINGS: Redemonstration of an acute fracture of the superolateral aspect of the humeral head, involving the greater tuberosity. Up to 8 mm of displacement. Small chronic appearing ossification adjacent to the lateral epicondyle of the distal humerus. No dislocation. No worrisome osseous lesion. No significant soft tissue abnormality. [facility] Kamla Sawant M D - 03/06/2024 Patient Name: EL SMITH : 1980 Exam Date/Time: 03/06/2024 00:15 Procedure: XR HUMERUS RIGHT Ordering Provider: BRAXTON J Reason For Exam: pain, fx RIGHT HUMERUS: CLINICAL INDICATION: pain, fx TECHNIQUE: AP and lateral COMPARISON: Right shoulder radiographs from 03/05/2024 FINDINGS: Redemonstration of an acute fracture of the superolateral aspect of the humeral head, involving the greater tuberosity. Up to 8 mm of displacement. Small chronic appearing ossification adjacent to the lateral epicondyle of the distal humerus. No dislocation. No worrisome osseous lesion. No significant soft tissue abnormality. IMPRESSION: Redemonstration of a mildly displaced fracture of the superolateral humeral head.. Report Dictated on Electronically Signed By: Kamla Sawant MD Electronically Signed Date/Time: 03/06/2024 12:58 AM EST [facility] Radiology Study observation (narrative) [facility] alth XR Shoulder - left 2 Viewson 03-06-2024 No acute left shoulder abnormality is identified. Acute appearing nondisplaced fracture of the left ninth lateral rib.. Report Dictated on Electronically Signed By: Kamla Sawant MD Electronically Signed Date/Time: 03/06/2024 12:56 AM [facility] Patient Name: EL SMITH : 1980 Exam Date/Time: 03/06/2024 00:15 Procedure: XR SHOULDER 2+ VIEWS LEFT Ordering Provider: BRAXTON J Reason For Exam: pain LEFT SHOULDER: CLINICAL INDICATION: pain TECHNIQUE: Grashey, Y, and axillary COMPARISON: Chest radiograph from 03/05/2024 FINDINGS: There is an acute appearing nondisplaced fracture of the left ninth lateral rib. No acute left shoulder fracture is identified. The glenohumeral and acromioclavicular joints are unremarkable. No worrisome osseous lesion is identified. There is no significant soft tissue abnormality. [facility] Kamla Sawant M D - 03/06/2024 Patient Name: EL SMITH : 1980 Exam Date/Time: 03/06/2024 00:15 Procedure: XR SHOULDER 2+ VIEWS LEFT Ordering Provider: BRAXTON J Reason For Exam: pain LEFT SHOULDER: CLINICAL INDICATION: pain TECHNIQUE: Grashey, Y, and axillary COMPARISON: Chest radiograph from 03/05/2024 FINDINGS: There is an acute appearing nondisplaced fracture of the left ninth lateral rib. No acute left shoulder fracture is identified. The glenohumeral and acromioclavicular joints are unremarkable. No worrisome osseous lesion is identified. There is no significant soft tissue abnormality. IMPRESSION: No acute left shoulder abnormality is identified. Acute appearing nondisplaced fracture of the left ninth lateral rib.. Report Dictated on Electronically Signed By: Kamla Sawant MD Electronically Signed Date/Time: 03/06/2024 12:56 AM [facility] Radiology Study observation (narrative) [facility] alth XR Shoulder - left 2 ViewsOr dered By: Kamla Sawant on 03-06-2024 [facility] [employer] Work Phone: ABO and Rh group Confirm Nom (Bld)on 03-05-2024 ABO group Nom (Bld) A [facility] D Ag Ql (RBC) Positive [facility] h [facility] BASIC METABOLIC PANELon 02-16 Anion gap [Moles/Vol] 6 mmol/L Normal 3-13 [facility] Comment on above: Performed By: #### L AB46, LAB15, [id number], [id number] ####Representative Government Relations: JACK ORTIZ ([phone])[facility] ([facility])[address] [place] [address] Calcium [Mass/Vol] 8.6 mg/dL Normal 8.4-10.4 [facility] Comment on above: Performed By: #### L AB46, LAB15, [id number], [id number] ####Representative Government Relations: JACK ORTIZ ([phone])[facility] ([facility])[address] [place] [address] Chloride [Moles/Vol] 99 mmol/L Normal 98-107 [facility] Comment on above: Performed By: #### L AB46, LAB15, [id number], [id number] ####Representative Government Relations: JACK ORTIZ ([phone])[facility] ([facility])[address] [place] [address] CO2 [Moles/Vol] 28 mmol/L Normal 22-30 [facility] Comment on above: Performed By: #### L AB46, LAB15, [id number], [id number] ####Representative Government Relations: JACK ORTIZ ([phone])[facility] ([facility])[address] [place] [address] Creatinine [Mass/Vol] 0.58 mg/dL Low 0.66-1.25 [facility] Comment on above: Performed By: #### L AB46, LAB15, [id number], [id number] ####Representative Government Relations: JACK ORTIZ ([phone])[facility] ([facility])[address] [place] [address] [place] GLOMERULAR FILTRATION RATE ML/MIN/1.73 SQ M.PREDICTED >90.0 Normal >60.0 [facility] Comment on above: Result Comment: Calc ulation based on the Chronic Kidney Disease Epidemiology Collaboration (CKD-EPI) equation refit without adjustment for race Performed By: #### L AB46, LAB15, [id number], [id number] ####Representative Government Relations: JACK ORTIZ ([phone])[facility])[address] [place] [address] Glucose [Mass/Vol] 106 mg/dL High 70-100 [facility] Comment on above: Performed By: #### L AB46, LAB15, [id number], [id number] ####Representative Government Relations: JACK ORTIZ ([phone])[facility] ([facility])[address] [place] [address] Potassium [Moles/Vol] 3.3 mmol/L Low 3.5-5.1 [facility] Comment on above: Performed By: #### L AB46, LAB15, QMF394, [id number] ####Representative Government Relations: JACK ORTIZ ([phone])[facility] ([facility])[address] [place] [address] Sodium [Moles/Vol] 134 mmol/L Low 135-145 [facility] Comment on above: Performed By: #### L AB46, LAB15, [id number], [id number] ####Representative Government Relations: JACK ORTIZ ([phone])[facility])[address] [place] [address] Urea nitrogen [Mass/Vol] 11 mg/dL Normal 9-20 [facility] Comment on above: Performed By: #### L AB46, LAB15, [id number], [id number] ####Representative Government Relations: JACK ORTIZ ([phone])[facility])[address] [place] [address] BLOOD TYPE AND SCREEN GELon 03-05-2024 ABO GROUPING A Normal [facility] Comment on above: Performed By: #### L [id number] ####Representative Government Relations: JACK ORTIZ ([phone])[facility] ([facility])[address] [place] [address] [place] RH TYPE IN BLOOD Positive Normal [facility] Comment on above: Performed By: #### L [id number] ####Representative Government Relations: JACK ORTIZ ([phone])[facility] ([facility])[address] [place] [address] Basic metabolic 1998 panelon 03-05-2024 Anion gap [Moles/Vol] 6 mmol/L 3 - 13 mmol/L [facility] Calcium [Mass/Vol] 8.6 mg/dL 8.4 - 10. 4 mg/dL [facility] Chloride [Moles/Vol] 99 mmol/L 98 - 10 7 mmol/L [facility] CO2 [Moles/Vol] 28 mmol/L 22 - 30 mmol/L [facility] Creatinine [Mass/Vol] 0.58 mg/dL Low 0.66 - 1.25 mg/dL [facility] GFR/1.73 sq M.predicted (S/P/Bld) [Vol rate/Area] - PINF [facility] Comment on above: Calculation based on the Chronic Kidney Disease Epidemiology Collaboration (CKD-EPI) equation refit without adjustment for race Glucose [Mass/Vol] 106 mg/dL High 70 - 100 mg/dL [facility] Interpretation and review of laboratory results Abnormal [facility] Potassium [Moles/Vol] 3.3 mmol/L Low 3.5 - 5.1 mmol/L [facility] Sodium [Moles/Vol] 134 mmol/L Low 135 - 145 mmol/L [facility] [facility] [place] Urea nitrogen [Mass/Vol] 11 mg/dL 9 - 20 mg/dL [facility] Blood type and Crossmatch pa joanna (Bld)on 03-05-2024 ABO group Nom (Bld) A [facility] [place] Blood group antibody screen GEL Ql Negative [facility] [place] D Ag Ql (RBC) Positive [facility] [place] CBC W Auto Differential pane l (Bld)Ordered By: Angie Worthington on 03-05-2024 Basophils (Bld) [#/Vol] 0.2 10*3/uL 0.0 - 0.2 10*3/uL [facility] [place] Basophils/100 WBC (Bld) 1.6 % 0.0 - 2.0 % [facility] [place] Eosinophils (Bld) [#/Vol] 0.4 10*3/uL 0.0 - 0.5 10*3/uL [facility] Eosinophils/100 WBC (Bld) 3.8 % 0.0 - 6.0 % [facility] [place] Erythrocyte distribution width (RBC) [Ratio] 20.4 % High 11.5 - 15.0 % [facility] [place] Hematocrit (Bld) [Volume fraction] 31.4 % Low 40.0 - 52.0 % [facility] [place] Hemoglobin (Bld) [Mass/Vol] 9.6 g/dL Low 13.0 - 18.0 g/dL [facility] [place] Immature granulocytes (Bld) [#/Vol] 0 10*3/uL NINF - 0.1 10*3/uL [facility] [place] Immature granulocytes/100 WBC (Bld) 0.3 % 0.0 - 2.0 % [facility] [place] Interpretation and review of laboratory results Abnormal [facility] [place] Lymphocytes (Bld) [#/Vol] 3.6 10*3/uL 1.0 - 4.3 10*3/uL [facility] [place] Lymphocytes/100 WBC (Bld) 35.9 % 15.0 - 45.0 % [facility] [place] MCH (RBC) [Entitic mass] 23.4 pg Low 26.0 - 34.0 pg [facility] [place] MCHC (RBC) [Mass/Vol] 30.6 % 30.5 - 36.0 % [facility] [place] MCV (RBC) [Entitic vol] 76.4 fL Low 77.0 - 99.0 fL [facility] [place] Monocytes (Bld) [#/Vol] 0.8 10*3/uL 0.0 - 0.9 10*3/uL [facility] [place] Monocytes/100 WBC (Bld) 8.3 % 5.0 - 13.0 % [facility] [place] Neutrophils (Bld) [#/Vol] 4.9 10*3/uL 1.8 - 7.5 10*3/uL [facility] [place] Neutrophils/100 WBC (Bld) 50.1 % 38.0 - 82.0 % [facility] [place] Nucleated RBC/100 WBC (Bld) [Ratio] 0 % [facility] [employer] Platelet mean volume (Bld) [Entitic vol] 8.8 fL Low 9.0 - 12.7 fL [facility] [place] Platelets (Bld) [#/Vol] 631 10*3/uL High 140 - 440 10*3/uL [facility] [place] RBC (Bld) [#/Vol] 4.11 10*6/uL Low 4.40 - 5.9 0 10*6/uL [facility] [place] WBC (Bld) [#/Vol] 9.9 10*3/uL 3.6 - 10.7 10*3/uL [facility] CBC WITH AUTO DIFFERENTIALon 03-05-2024 Basophils (Bld) [#/Vol] 0.2 10*3/uL Normal 0.0-0.2 [facility] Comment on above: Performed By: #### L [id number] ####Representative Government Relations: JACK ORTIZ ([phone])[facility] ([facility])[address] [place] [address] Basophils/100 WBC (Bld) 1.6 % Normal 0.0-2.0 [facility] Comment on above: Performed By: #### L [id number] ####Representative Government Relations: JACK ORTIZ ([phone])[facility])[address] [place] [address] Eosinophils (Bld) [#/Vol] 0.4 10*3/uL Normal 0.0-0.5 [facility] Comment on above: Performed By: #### L [id number] ####Representative Government Relations: JACK ORTIZ ([phone])[facility])[address] [place] [address] Eosinophils/100 WBC (Bld) 3.8 % Normal 0.0-6.0 [facility] Comment on above: Performed By: #### L [id number] ####Representative Government Relations: JACK ORTIZ ([phone])[facility])[address] [place] [address] Erythrocyte distribution width (RBC) [Ratio] 20.4 % High 11.5-15.0 [facility] Comment on above: Performed By: #### L [id number] ####Representative Government Relations: JACK ORTIZ ([phone])[facility])[address] [place] [address] Hematocrit (Bld) [Volume fraction] 31.4 % Low 40.0-52.0 [facility] Comment on above: Performed By: #### L [id number] ####Representative Government Relations: JACK ORTIZ ([phone])[facility])[address] [place] [address] Hemoglobin (Bld) [Mass/Vol] 9.6 g/dL Low 13.0-18.0 [facility] Comment on above: Performed By: #### L [id number] ####Representative Government Relations: JACK ORTIZ ([phone])[facility])[address] [place] [address] IMMATURE GRANS % 0.3 % Normal 0.0-2.0 [facility] Comment on above: Performed By: #### L [id number] ####Representative Government Relations: JACK ORTIZ ([phone])[facility])[address] [place] [address] IMMATURE GRANS ABSOLUTE 0.0 10*3/uL Normal <0.1 [facility] Comment on above: Performed By: #### L [id number] ####Representative Government Relations: JACK ORTIZ ([phone])[facility] ([facility])[address] [place] [address] Lymphocytes (Bld) [#/Vol] 3.6 10*3/uL Normal 1.0-4.3 [facility] Comment on above: Performed By: #### L [id number] ####Representative Government Relations: JACK ORTIZ ([phone])[facility])[address] [place] [address] Lymphocytes/100 WBC (Bld) 35.9 % Normal 15.0-45.0 [facility] Comment on above: Performed By: #### L [id number] ####Representative Government Relations: JACK ORTIZ ([phone])[facility])[address] [place] [address] MCH (RBC) [Entitic mass] 23.4 pg Low 26.0-34.0 [facility] Comment on above: Performed By: #### L [id number] ####Representative Government Relations: JACK ORTIZ ([phone])[facility] [place] [address] MCHC 30.6 % Normal 30.5-36.0 [facility] Comment on above: Performed By: #### L [id number] ####Representative Government Relations: JACK ORTIZ ([phone])[facility] ([facility])[address] [place] [address] MCV (RBC) [Entitic vol] 76.4 fL Low 77.0-99.0 [facility] Comment on above: Performed By: #### L [id number] ####Representative Government Relations: JACK ORTIZ ([phone])[facility] ([facility])[address] [place] [address] Monocytes (Bld) [#/Vol] 0.8 10*3/uL Normal 0.0-0.9 [facility] Comment on above: Performed By: #### L [id number] ####Representative Government Relations: JACK ORTIZ ([phone])[facility] ([facility])[address] [place] [address] Monocytes/100 WBC (Bld) 8.3 % Normal 5.0-13.0 [facility] Comment on above: Performed By: #### L [id number] ####Representative Government Relations: JACK ORTIZ ([phone])[facility] ([facility])[address] [place] [address] NEUTROPHILS ABSOLUTE 4.9 10*3/uL Normal 1.8-7.5 [facility] Comment on above: Performed By: #### L [id number] ####Representative Government Relations: JACK ORTIZ ([phone])[facility] ([facility])[address] [place] [address] Neutrophils/100 WBC (Bld) 50.1 % Normal 38.0-82.0 [facility] Comment on above: Performed By: #### L [id number] ####Representative Government Relations: JACK ORTIZ ([phone])[facility] ([facility])[address] [place] [address] NRBC 0.0 /100 WBCs Normal 0.0-2.0 [facility] Comment on above: Performed By: #### L [id number] ####Representative Government Relations: JACK ORTIZ ([phone])[facility])[address] [place] [address] Platelet mean volume (Bld) [Entitic vol] 8.8 fL Low 9.0-12.7 [facility] Comment on above: Performed By: #### L [id number] ####Representative Government Relations: JACK ORTIZ ([phone])[facility] ([facility])[address] [place] [address] Platelets (Bld) [#/Vol] 631 10*3/uL High 140-440 [facility] Comment on above: Performed By: #### L [id number] ####Representative Government Relations: JACK ORTIZ ([phone])[facility])[address] [place] [address] RBC (Bld) [#/Vol] 4.11 10*6/uL Low 4.40-5.90 [facility] Comment on above: Performed By: #### L [id number] ####Representative Government Relations: JACK ORTIZ ([phone])[facility])[address] [place] [address] WBC (Bld) [#/Vol] 9.9 10*3/uL Normal 3.6-10.7 [facility] Comment on above: Performed By: #### L [id number] ####Representative Government Relations: JACK ORTIZ ([phone])[facility])[address] [place] [address] CT CERVICAL SPINE WO IV CONT RASTon 03-05-2024 CT CERVICAL SPINE WO IV CONTRAST Normal [facility] CT Cervical spine WO contras ton 03-05-2024 Patient Name: EL SMITH : 1980 Exam Date/Time: 03/05/2024 21:52 Procedure: CT CERVICAL SPINE WO IV CONTRAST Ordering Provider: BRAXTON J Reason For Exam: Trauma CT BRAIN, MAXILLOFACIAL REGION AND CERVICAL SPINE WITHOUT CONTRAST CLINICAL INDICATION: Syncope/presyncope, cerebrovascular cause suspected TECHNIQUE: CT scan of the brain, maxillofacial region and cervical spine without IV contrast. Multiplanar reformations. Dose reduction was employed with automated exposure control. COMPARISON: CT brain, February,; CT maxillofacial and CT cervical spine, January,. FINDINGS: Brain: No parenchymal mass, mass effect, hemorrhage, midline shift or hydrocephalus. No evidence of acute cortical infarct. No abnormal, extra-axial fluid or air collection. Osseous calvarium grossly intact. Maxillofacial region: New fractures in the interval, including left orbit inferior and lateral hilario without significant displacement. New fractures in the left maxillary antrum anterior and posterior hilario, with discontinuity, mild-moderate depression and partial opacification of left maxillary antrum. Discontiguous fractures of left zygomatic arch, with mild depression, also new. Previous fractures again noted in the right orbit inferior and lateral hilario, right maxillary antrum anterior and posterior hilario, and right zygomatic arch. Fracture of left mandibular condyle, with intra-articular extension, mild-moderate distraction, and partial subluxation of left TMJ, similar. Nasal fracture, also similar. Pterygoid plates grossly intact. Optic globes are grossly intact. Punctate hyperdensity along left lateral optic globe may represent debris or retained foreign body. Periorbital soft tissue edema bilaterally. Cervical spine: No acute compression deformity or gross malalignment of cervical vertebral bodies. No acute fracture. No acute, osseous central spinal canal encroachment. Disc spaces maintained. Paraspinal soft tissues grossly unremarkable. Emphysematous change in visualized upper lungs. [facility] Tk Trinh MD - 03/05/2024 [facility] 1980 [id number] Exam Date/Time: 03/05/2024 21:52 Procedure: CT CERVICAL SPINE WO IV CONTRAST Ordering Provider: BRAXTON J Reason For Exam: Trauma CT BRAIN, MAXILLOFACIAL REGION AND CERVICAL SPINE WITHOUT CONTRAST CLINICAL INDICATION: Syncope/presyncope, cerebrovascular cause suspected TECHNIQUE: CT scan of the brain, maxillofacial region and cervical spine without IV contrast. Multiplanar reformations. Dose reduction was employed with automated exposure control. COMPARISON: CT brain, February,; CT maxillofacial and CT cervical spine, January,. FINDINGS: Brain: No parenchymal mass, mass effect, hemorrhage, midline shift or hydrocephalus. No evidence of acute cortical infarct. No abnormal, extra-axial fluid or air collection. Osseous calvarium grossly intact. Maxillofacial region: New fractures in the interval, including left orbit inferior and lateral hilario without significant displacement. New fractures in the left maxillary antrum anterior and posterior hilario, with discontinuity, mild-moderate depression and partial opacification of left maxillary antrum. Discontiguous fractures of left zygomatic arch, with mild depression, also new. Previous fractures again noted in the right orbit inferior and lateral hilario, right maxillary antrum anterior and posterior hilario, and right zygomatic arch. Fracture of left mandibular condyle, with intra-articular extension, mild-moderate distraction, and partial subluxation of left TMJ, similar. Nasal fracture, also similar. Pterygoid plates grossly intact. Optic globes are grossly intact. Punctate hyperdensity along left lateral optic globe may represent debris or retained foreign body. Periorbital soft tissue edema bilaterally. Cervical spine: No acute compression deformity or gross malalignment of cervical vertebral bodies. No acute fracture. No acute, osseous central spinal canal encroachment. Disc spaces maintained. Paraspinal soft tissues grossly unremarkable. Emphysematous change in visualized upper lungs. IMPRESSION: 1. No acute intracranial findings. 2. Multiple left facial fractures, new in the interval. Multiple right facial and nasal fractures, and intra-articular fracture left mandibular condyle, similar to comparison. 3. No acute compression deformity or apparent fracture in the cervical spine. Report Dictated on Electronically Signed By: Tk Trinh MD Electronically Signed Date/Time: 03/05/2024 10:35 PM [facility] CT HEAD WO IV CONTRASTon CT HEAD WO IV CONTRAST Normal [facility] CT Head WO contraston 2023 Patient Name: EL SMITH : 1980 Exam Date/Time: 03/05/2024 21:52 Procedure: CT HEAD WO IV CONTRAST Ordering Provider: BRAXTON J Reason For Exam: Syncope/presyncope, cerebrovascular cause suspected CT BRAIN, MAXILLOFACIAL REGION AND CERVICAL SPINE WITHOUT CONTRAST CLINICAL INDICATION: Syncope/presyncope, cerebrovascular cause suspected TECHNIQUE: CT scan of the brain, maxillofacial region and cervical spine without IV contrast. Multiplanar reformations. Dose reduction was employed with automated exposure control. COMPARISON: CT brain, February,; CT maxillofacial and CT cervical spine, January,. FINDINGS: Brain: No parenchymal mass, mass effect, hemorrhage, midline shift or hydrocephalus. No evidence of acute cortical infarct. No abnormal, extra-axial fluid or air collection. Osseous calvarium grossly intact. Maxillofacial region: New fractures in the interval, including left orbit inferior and lateral hilario without significant displacement. New fractures in the left maxillary antrum anterior and posterior hilario, with discontinuity, mild-moderate depression and partial opacification of left maxillary antrum. Discontiguous fractures of left zygomatic arch, with mild depression, also new. Previous fractures again noted in the right orbit inferior and lateral hilario, right maxillary antrum anterior and posterior hilario, and right zygomatic arch. Fracture of left mandibular condyle, with intra-articular extension, mild-moderate distraction, and partial subluxation of left TMJ, similar. Nasal fracture, also similar. Pterygoid plates grossly intact. Optic globes are grossly intact. Punctate hyperdensity along left lateral optic globe may represent debris or retained foreign body. Periorbital soft tissue edema bilaterally. Cervical spine: No acute compression deformity or gross malalignment of cervical vertebral bodies. No acute fracture. No acute, osseous central spinal canal encroachment. Disc spaces maintained. Paraspinal soft tissues grossly unremarkable. Emphysematous change in visualized upper lungs. [facility] Tk Trinh MD - 03/05/2024 [facility]: [facility] 1980 [id number] Exam Date/Time: 03/05/2024 21:52 Procedure: CT HEAD WO IV CONTRAST Ordering Provider: BRAXTON J Reason For Exam: Syncope/presyncope, cerebrovascular cause suspected CT BRAIN, MAXILLOFACIAL REGION AND CERVICAL SPINE WITHOUT CONTRAST CLINICAL INDICATION: Syncope/presyncope, cerebrovascular cause suspected TECHNIQUE: CT scan of the brain, maxillofacial region and cervical spine without IV contrast. Multiplanar reformations. Dose reduction was employed with automated exposure control. COMPARISON: CT brain, February,; CT maxillofacial and CT cervical spine, January,. FINDINGS: Brain: No parenchymal mass, mass effect, hemorrhage, midline shift or hydrocephalus. No evidence of acute cortical infarct. No abnormal, extra-axial fluid or air collection. Osseous calvarium grossly intact. Maxillofacial region: New fractures in the interval, including left orbit inferior and lateral hilario without significant displacement. New fractures in the left maxillary antrum anterior and posterior hilario, with discontinuity, mild-moderate depression and partial opacification of left maxillary antrum. Discontiguous fractures of left zygomatic arch, with mild depression, also new. Previous fractures again noted in the right orbit inferior and lateral hilario, right maxillary antrum anterior and posterior hilario, and right zygomatic arch. Fracture of left mandibular condyle, with intra-articular extension, mild-moderate distraction, and partial subluxation of left TMJ, similar. Nasal fracture, also similar. Pterygoid plates grossly intact. Optic globes are grossly intact. Punctate hyperdensity along left lateral optic globe may represent debris or retained foreign body. Periorbital soft tissue edema bilaterally. Cervical spine: No acute compression deformity or gross malalignment of cervical vertebral bodies. No acute fracture. No acute, osseous central spinal canal encroachment. Disc spaces maintained. Paraspinal soft tissues grossly unremarkable. Emphysematous change in visualized upper lungs. IMPRESSION: 1. No acute intracranial findings. 2. Multiple left facial fractures, new in the interval. Multiple right facial and nasal fractures, and intra-articular fracture left mandibular condyle, similar to comparison. 3. No acute compression deformity or apparent fracture in the cervical spine. Report Dictated on Electronically Signed By: Tk Trinh MD Electronically Signed Date/Time: 03/05/2024 10:35 PM EST [employer] CT MAXILLOFACIAL WO IV CONTR Buffy 03-05-2024 CT MAXILLOFACIAL WO IV CONTRAST Normal [facility] [place] [facility] CT Maxillofacial region WO a nd W contrast Luca 03-05-2024 Patient Name: EL SMITH : 1980 Exam Date/Time: 03/05/2024 21:52 Procedure: CT MAXILLOFACIAL WO IV CONTRAST Ordering Provider: BRAXTON J Reason For Exam: Trauma CT BRAIN, MAXILLOFACIAL REGION AND CERVICAL SPINE WITHOUT CONTRAST CLINICAL INDICATION: Syncope/presyncope, cerebrovascular cause suspected TECHNIQUE: CT scan of the brain, maxillofacial region and cervical spine without IV contrast. Multiplanar reformations. Dose reduction was employed with automated exposure control. COMPARISON: CT brain, February,; CT maxillofacial and CT cervical spine, January,. FINDINGS: Brain: No parenchymal mass, mass effect, hemorrhage, midline shift or hydrocephalus. No evidence of acute cortical infarct. No abnormal, extra-axial fluid or air collection. Osseous calvarium grossly intact. Maxillofacial region: New fractures in the interval, including left orbit inferior and lateral hilario without significant displacement. New fractures in the left maxillary antrum anterior and posterior hilario, with discontinuity, mild-moderate depression and partial opacification of left maxillary antrum. Discontiguous fractures of left zygomatic arch, with mild depression, also new. Previous fractures again noted in the right orbit inferior and lateral hilario, right maxillary antrum anterior and posterior hilario, and right zygomatic arch. Fracture of left mandibular condyle, with intra-articular extension, mild-moderate distraction, and partial subluxation of left TMJ, similar. Nasal fracture, also similar. Pterygoid plates grossly intact. Optic globes are grossly intact. Punctate hyperdensity along left lateral optic globe may represent debris or retained foreign body. Periorbital soft tissue edema bilaterally. Cervical spine: No acute compression deformity or gross malalignment of cervical vertebral bodies. No acute fracture. No acute, osseous central spinal canal encroachment. Disc spaces maintained. Paraspinal soft tissues grossly unremarkable. Emphysematous change in visualized upper lungs. [facility] Tk Trinh MD - 03/05/2024 Patient Name: EL SMITH : 1980 Exam Date/Time: 03/05/2024 21:52 Procedure: CT MAXILLOFACIAL WO IV CONTRAST Ordering Provider: MORAH, , J Reason For Exam: Trauma CT BRAIN, MAXILLOFACIAL REGION AND CERVICAL SPINE WITHOUT CONTRAST CLINICAL INDICATION: Syncope/presyncope, cerebrovascular cause suspected TECHNIQUE: CT scan of the brain, maxillofacial region and cervical spine without IV contrast. Multiplanar reformations. Dose reduction was employed with automated exposure control. COMPARISON: CT brain, February,; CT maxillofacial and CT cervical spine, January,. FINDINGS: Brain: No parenchymal mass, mass effect, hemorrhage, midline shift or hydrocephalus. No evidence of acute cortical infarct. No abnormal, extra-axial fluid or air collection. Osseous calvarium grossly intact. Maxillofacial region: New fractures in the interval, including left orbit inferior and lateral hilario without significant displacement. New fractures in the left maxillary antrum anterior and posterior hilario, with discontinuity, mild-moderate depression and partial opacification of left maxillary antrum. Discontiguous fractures of left zygomatic arch, with mild depression, also new. Previous fractures again noted in the right orbit inferior and lateral hilario, right maxillary antrum anterior and posterior hilario, and right zygomatic arch. Fracture of left mandibular condyle, with intra-articular extension, mild-moderate distraction, and partial subluxation of left TMJ, similar. Nasal fracture, also similar. Pterygoid plates grossly intact. Optic globes are grossly intact. Punctate hyperdensity along left lateral optic globe may represent debris or retained foreign body. Periorbital soft tissue edema bilaterally. Cervical spine: No acute compression deformity or gross malalignment of cervical vertebral bodies. No acute fracture. No acute, osseous central spinal canal encroachment. Disc spaces maintained. Paraspinal soft tissues grossly unremarkable. Emphysematous change in visualized upper lungs. IMPRESSION: 1. No acute intracranial findings. 2. Multiple left facial fractures, new in the interval. Multiple right facial and nasal fractures, and intra-articular fracture left mandibular condyle, similar to comparison. 3. No acute compression deformity or apparent fracture in the cervical spine. Report Dictated on Electronically Signed By: Tk Trinh MD Electronically Signed Date/Time: 03/05/2024 10:35 PM EST [facility] Consulton 03-05-2024 Consult Normal [facility] DRUGS OF ABUSEon 03-05-2024 AMPHETAMINE SCREEN Negative Normal [facility] Comment on above: Performed By: #### L [id number] ####Representative Government Relations: JACK ORTIZ ([id number])[facility])[address] [place] [address] BARBITURATES SCREEN Negative Normal [facility] [facility] Comment on above: Performed By: #### L [id number] ####Representative Government Relations: JACK ORTIZ ([phone])[facility] [place] [address] BENZODIAZEPINE SCREEN Negative Normal [facility] Comment on above: Performed By: #### L [id number] ####Representative Government Relations: JACK ORTIZ ([phone])[facility] ([facility])[address] [place] [address] COCAINE METAB. SCREEN Negative Normal [facility] Comment on above: Performed By: #### L [id number] ####Representative Government Relations: JACK ORTIZ ([phone])[facility] [place] [address] METHADONE SCREEN Negative Normal [facility] Comment on above: Performed By: #### L [id number] ####Representative Government Relations: JACK ORTIZ ([phone])[facility] [place] [address] OPIATES SCREEN Negative Normal [facility] Comment on above: Performed By: #### L [id number] ####Representative Government Relations: AJCK ORTIZ ([phone])[facility] ([facility])[address] [place] [address] OXYCODONE SCREEN Negative Normal [facility] Comment on above: Performed By: #### L [id number] ####Representative Government Relations: JACK ORTIZ ([phone])[facility])[address] [place] [address] PHENCYCLIDINE SCREEN Negative Normal [facility] Comment on above: Result Comment: ORDE R COMMENTS:The expected value for all of the drugs listed above is Negative.The following drugs or drug groups have been screened for by Immunoassay at the following thresholds:Amphetamine class (1000 ng/mL)Barbiturates (200 ng/mL)Benzodiazepines (200 ng/mL)Cocaine (300 ng/mL)Methadone (300 ng/mL)Opiates (300 ng/mL)Oxycodone (100 ng/mL)PCP (25 ng/mL)NOTE: These results are for medical treatment only. Analysis performed using non-forensic procedures. POSITIVE results are NOT confirmed by a more specificalternative method unless requested. If confirmation is needed, request confirmation under separate order. Performed By: #### L [id number] ####Representative Government Relations: JACK ORTIZ ([phone])[facility])[address] [place] [address] ED Provider Noteon ED Provider Note Normal [facility] ETHANOLon 03-05-2024 ETHANOL IN SER/PLAS <0.010 Normal 0.000-0.010 [facility] Comment on above: Result Comment: PAGE Menezes COMMENTS:NOTE: This result is for medical treatment only. Analysis performed using non-forensic procedures. Performed By: #### L [id number], [id number], [id number], [id number] ####Representative Government Relations: JACK ORTIZ ([phone])[address] ETHYL GLUCURONIDE SCREEN, UR INEon 03-05-2024 ETHYL GLUCURONIDE, URINE Negative Normal Negative [facility] Comment on above: Result Comment: PAGE Menezes COMMENTS:Ethyl Glucuronide has been screened by Immunoassay at a 500 ng/mL threshold. POSITIVE results are not confirmed by a more specific alternative method unless requested. If confirmation is needed, request confirmation under separate order.NOTE: These results are for medical treatment only. Analysis performed using non-forensic procedures.This test has not been cleared by the US Food and Drug Administration (FDA). The FDA has determined that such clearance or approval is not necessary. The performance characteristics have been determined by the clinical laboratories of [facility]. Performed By: #### L [id number], [id number] ####Representative Government Relations: JACK ORTIZ ([phone])[facility] ([facility])[address] [place] [address] Ethanol (Bld) [Mass/Vol]on 1 05-05-2023 Ethanol [Mass/Vol] g/dL 0.000 - 0 .010 g/dL [facility] LACTIC ACID WITH REFLEXon Lactate [Moles/Vol] 0.9 mmol/L Normal 0.7-2.0 [facility] Comment on above: Performed By: #### L [id number] ####Representative Government Relations: JACK ORTIZ ([phone])[facility] ([facility] Laboratory - Chemistry and C hemistry - challengeon 03-05-2024 Magnesium [Mass/Vol] 1.4 mg/dL Low 1.6 - 2 .3 mg/dL [facility] Lactate [Moles/Vol] 0.9 mmol/L 0.7 - 2. 0 mmol/L [facility] Laboratory - Coagulationon 1 05-05-2023 aPTT Coag (PPP) [Time] 28.2 s 20.0 - 30.5 s [facility] INR Coag (PPP) [Relative time] 1 {INR} 0.9 - 1.1 [facility] Comment on above: Recommended Anticoag ulant Therapy: SEE BELOW ----- INR of 2.0 - 3.0 : - Prophylaxis of Venous Thrombosis (high-risk surgery) - Treatment of Venous Thrombosis - Treatment of Pulmonary Embolism (Includes tissue heart valves, Acute Myocardial Infarction to prevent systemic embolism, Valvular Heart Disease, and Atrial Fibrillation) ----- INR of 2.5 - 3.5 : - Mechanical Prosthetic Valves (high risk) - If oral anticoagulant therapy is used to prevent Myocardial Infarction PT Coag (Bld) [Time] 11.3 s 9.0 - 12.[address] [facility] Laboratory - Drug toxicology Ordered By: Anu Lewis on 03-05-2024 Amphetamines Screen method >1000 ng/mL Ql (U) Negative [facility] Barbiturates Screen method >200 ng/mL Ql (U) Negative [facility] Benzodiazepines Ql (U) Negative [facility] Methadone Screen Ql (U) Negative [facility] Opiates Screen Ql (U) Negative [facility] oxyCODONE Ql (U) Negative [facility] Phencyclidine Ql (U) Negative [facility] MAGNESIUMon 03-05-2024 Magnesium [Mass/Vol] 1.4 mg/dL Low 1.6-2.3 [facility] Comment on above: Performed By: #### L [id number], [id number], [id number], [id number] ####Representative Government Relations: JACK ORTIZ ([phone])[facility])[address] [place] [address] MEDICATION ASSISTED TREATMEN T PANELon 03-05-2024 Amphetamines Ql (U) Negative Normal Negative [facility] Comment on above: Performed By: #### L [id number], [id number] ####Representative Government Relations: JACK ORTIZ ([phone])[facility] ([facility])[address] [place] [address] BARBITURATES Positive Normal Negative [facility] Comment on above: Performed By: #### L [id number], [id number] ####Representative Government Relations: JACK ORTIZ ([phone])[facility])[address] [place] [address] Benzodiazepines Ql (U) Positive Normal Negative [facility] Comment on above: Performed By: #### L [id number], [id number] ####Representative Government Relations: JACK ORTIZ ([phone])[facility] ([facility])[address] [place] [address] BUPRENORPHINE SCREEN Positive Normal Negative [facility] Comment on above: Performed By: #### L [id number], [id number] ####Representative Government Relations: JACK ORTIZ ([phone])[facility] ([facility])[address] [place] [address] Cocaine Ql (U) Negative Normal Negative [facility] Comment on above: Performed By: #### L [id number], [id number] ####Representative Government Relations: JACK ORTIZ ([phone])[facility] ([facility])[address] [place] [address] ETHANOL-ETOHO Negative Normal Negative [facility] Comment on above: Result Comment: ORDE R COMMENTS:The expected value for the drugs listed above is Negative.The following drugs or drug groups have been screened for by Immunoassay at the following thresholds:Amphetamine class(1000ng/mL)Barbituates(200ng/mL)Benzodiazepines(200ng/mL) Cocaine(300ng/mL)Ethanol (50 ng/mL)Methadone(300ng/mL)Opiates(300ng/mL)Oxycodone(100ng/mL)P CP(25ng/mL)Buprenorphine(5ng/mL)THC(50ng/mL)Fentanyl(1ng/mL)Po sitive results are NOT confirmed by a more specific alternative method unless requested. If confirmation is needed, request confirmation under separate order.NOTE: These results are for medical treatment only. Analysis performed using non-forensic procedures. Performed By: #### L [id number], [id number] ####Representative Government Relations: JACK ORTIZ ([phone])[facility])[address] [place] [address] FENTANYL Negative Normal Negative [facility] Comment on above: Performed By: #### L [id number], [id number] ####Representative Government Relations: JACK ORTIZ ([phone])[facility] ([facility])[address] [place] [address] Methadone Ql (U) Negative Normal Negative [facility] Comment on above: Performed By: #### L [id number], [id number] ####Representative Government Relations: JACK ORTIZ ([phone])[facility] ([facility])[address] [place] [address] Opiates Ql (U) Negative Normal Negative [facility] Comment on above: Performed By: #### L [id number], [id number] ####Representative Government Relations: JACK ORTIZ ([id number])[facility] ([facility])[address] [place] [address] OXYCODONE/OXYMORPHONE Negative Normal Negative [facility] Comment on above: Performed By: #### L [id number], [id number] ####Representative Government Relations: JACK ORTIZ ([phone])[facility] ([facility])[address] [place] [address] PCP Negative Normal Negative [facility] Comment on above: Performed By: #### L [id number], [id number] ####Representative Government Relations: JACK ORTIZ ([phone])[facility])[address] [place] [address] THC-MTTHC Positive Normal Negative [facility] Comment on above: Performed By: #### L [id number], [id number] ####Representative Government Relations: JACK ORTIZ ([phone])[facility])[address] [place] [address] Magnesium [Mass/Vol]on 03-05 Interpretation and review of laboratory results Abnormal [facility] No Panel InformationOrdered By: Anu Lewis on 03-05-2024 COCAINE METAB. SCREEN Negative [facility] The expected value for all of the drugs listed above is Negative. The following drugs or drug groups have been screened for by Immunoassay at the following thresholds: Amphetamine class (1000 ng/mL) Barbiturates (200 ng/mL) Benzodiazepines (200 ng/mL) Cocaine (300 ng/mL) Methadone (300 ng/mL) Opiates (300 ng/mL) Oxycodone (100 ng/mL) PCP (25 ng/mL) NOTE: These results are for medical treatment only. Analysis performed using non-forensic procedures. POSITIVE results are NOT confirmed by a more specific alternative method unless requested. If confirmation is needed, request confirmation under separate order. [facility] No Panel Informationon 03-05 Interpretation and review of laboratory results Normal [facility] 1. No acute intracranial findings. 2. Multiple left facial fractures, new in the interval. Multiple right facial and nasal fractures, and intra-articular fracture left mandibular condyle, similar to comparison. 3. No acute compression deformity or apparent fracture in the cervical spine. Report Dictated on Electronically Signed By: Tk Trinh MD Electronically Signed Date/Time: 03/05/2024 10:35 PM [facility] Interpretation and review of laboratory results Normal [facility] Interpretation and review of laboratory results Normal [facility] Radiology Study observation (narrative) [facility] 1. No acute findings. PELVIS SINGLE VIEW CLINICAL INDICATION: TRAUMA TECHNIQUE: Single, AP view of the pelvis. COMPARISON: 7 [place], 2023. FINDINGS: No acute fracture or dislocation. Joint spaces maintained. Soft tissues grossly unremarkable. IMPRESSION: 1. No acute osseous abnormality. Report Dictated on Electronically Signed By: Tk Trinh MD Electronically Signed Date/Time: 03/05/2024 9:39 PM [facility] No Panel InformationOrdered By: Tk Trinh on 03-05-2024 [facility] [employer] Work Phone: PHOSPHORUSon 03-05-2024 Phosphate [Mass/Vol] 3.9 mg/dL Normal 2.5-4.5 [facility] Comment on above: Performed By: #### L [id number], LAB15, [id number], [id number] ####Representative Government Relations: JACK ORTIZ ([phone])[facility])[address] [place] [address] PROTIME AND APTTon aPTT Coag (Bld) [Time] 28.2 s Normal 20.0-30.5 [facility] Comment on above: Performed By: #### L [id number] ####Representative Government Relations: JACK ORTIZ ([phone])[facility])[address] [place] [address] INR Coag (PPP) [Relative time] 1.0 {INR} Normal 0.9-1.1 [facility] Comment on above: Result Comment: Ba mmended Anticoagulant Therapy: SEE BELOW----- INR of 2.0 - 3.0 : - Prophylaxis of Venous Thrombosis (high-risk surgery) - Treatment of Venous Thrombosis - Treatment of Pulmonary Embolism (Includes tissue heart valves, Acute Myocardial Infarction to prevent systemic embolism, Valvular Heart Disease, and Atrial Fibrillation)----- INR of 2.5 - 3.5 : - Mechanical Prosthetic Valves (high risk) - If oral anticoagulant therapy is used to prevent Myocardial Infarction Performed By: #### L [id number] ####Representative Government Relations: JACK ORTIZ ([phone])[facility] ([facility])[address] [place] [address] PT Coag (PPP) [Time] 11.3 s Normal 9.0-12.0 [facility] Comment on above: Performed By: #### L [id number] ####Representative Government Relations: JACK ORTIZ ([phone])[facility] ([facility] Phosphate [Moles/Vol]on 02-16 Phosphate [Mass/Vol] 3.9 mg/dL 2.5 - 4 .5 mg/dL [facility] XR Chest Single viewon 03-05 Radiology Study observation (narrative) [facility] ileana Patient Name: EL SMITH : 1980 Exam Date/Time: 03/05/2024 21:46 Procedure: XR CHEST 1 VIEW Ordering Provider: BRAXTON J Reason For Exam: TRAUMA CHEST PORTABLE CLINICAL INDICATION: TRAUMA TECHNIQUE: Portable chest x-ray(s). COMPARISON: January,. FINDINGS: Shoulders not included on radiograph. Cardiac and mediastinal silhouette within normal limits. Lungs are grossly clear. No apparent pneumothorax. Visualized bony thorax grossly intact. [facility] Tk Trinh MD - 03/05/2024 Patient Name: EL SMITH : 1980 Exam Date/Time: 03/05/2024 21:46 Procedure: XR CHEST 1 VIEW Ordering Provider: BRAXTON J Reason For Exam: TRAUMA CHEST PORTABLE CLINICAL INDICATION: TRAUMA TECHNIQUE: Portable chest x-ray(s). COMPARISON: January,. FINDINGS: Shoulders not included on radiograph. Cardiac and mediastinal silhouette within normal limits. Lungs are grossly clear. No apparent pneumothorax. Visualized bony thorax grossly intact. IMPRESSION: 1. No acute findings. PELVIS SINGLE VIEW CLINICAL INDICATION: TRAUMA TECHNIQUE: Single, AP view of the pelvis. COMPARISON: April,. FINDINGS: No acute fracture or dislocation. Joint spaces maintained. Soft tissues grossly unremarkable. IMPRESSION: 1. No acute osseous abnormality. Report Dictated on Electronically Signed By: Tk Trinh MD Electronically Signed Date/Time: 03/05/2024 9:39 PM [facility] XR Hand - left 3 Viewson FINDINGS AND IMPRESSION: There has been interval osseous remodeling with callus formation of the mid shaft oblique fracture of the fourth metacarpal with angulation and persistent oblique lucency. Soft tissue swelling persists. A screw and plate fixation is present along the distal radius. The bone mineralization is normal. The joint spaces appear maintained. Report Dictated on Electronically Signed By: Chela Cleaning MD Electronically Signed Date/Time: 03/05/2024 10:20 PM [facility] Patient Name: EL SMITH : 1980 Exam Date/Time: 03/05/2024 21:50 Procedure: XR HAND 3+ VIEWS LEFT Ordering Provider: BRAXTON J Reason For Exam: trauma INDICATION: 43-year-old male; trauma. VIEWS: Left hand PA and oblique and lateral-3 images COMPARISON: 10/27/2023 and 10/21/2023 [facility] Chela Cleaning MD - 03/05/2024 Patient Name: EL SMITH : 1980 Exam Date/Time: 03/05/2024 21:50 Procedure: XR HAND 3+ VIEWS LEFT Ordering Provider: BRAXTON J Reason For Exam: trauma INDICATION: 43-year-old male; trauma. VIEWS: Left hand PA and oblique and lateral-3 images COMPARISON: 10/27/2023 and 10/21/2023 left hand IMPRESSION: FINDINGS AND IMPRESSION: There has been interval osseous remodeling with callus formation of the mid shaft oblique fracture of the fourth metacarpal with angulation and persistent oblique lucency. Soft tissue swelling persists. A screw and plate fixation is present along the distal radius. The bone mineralization is normal. The joint spaces appear maintained. Report Dictated on Electronically Signed By: Chela Cleaning MD Electronically Signed Date/Time: 03/05/2024 10:20 PM [facility] Radiology Study observation (narrative) Deandre tejeda XR Hand - left 3 ViewsOrdere d By: Chela Cleaning on 03-05-2024 [facility] [employer] Work Phone: XR Hand - right 3 Viewson FINDINGS AND IMPRESSION: There is an acute transverse fracture along the proximal shaft of the first digit (thumb) proximal phalanx. The fracture line does not extend to the articular surface of the metacarpophalangeal joint. Soft tissue swelling and edema is present. Internal fixation of the fourth metacarpal with long wire, unchanged from 10/10/2022. Deformity of the proximal fifth metacarpal is unchanged. Report Dictated on Electronically Signed By: Chela Cleaning MD Electronically Signed Date/Time: 03/05/2024 10:23 PM [facility] Patient Name: EL SMITH : 1980 Exam Date/Time: 03/05/2024 21:50 Procedure: XR HAND 3+ VIEWS RIGHT Ordering Provider: BRAXTON J Reason For Exam: trauma INDICATION: 43-year-old male; trauma. VIEWS: Right hand PA and oblique and lateral-4 images COMPARISON: 10/10/2022 [facility] Chela Cleaning MD - 03/05/2024 Patient Name: EL SMITH : 1980 Exam Date/Time: 03/05/2024 21:50 Procedure: XR HAND 3+ VIEWS RIGHT Ordering Provider: BRAXTON J Reason For Exam: trauma INDICATION: 43-year-old male; trauma. VIEWS: Right hand PA and oblique and lateral-4 images COMPARISON: 10/10/2022 IMPRESSION: FINDINGS AND IMPRESSION: There is an acute transverse fracture along the proximal shaft of the first digit (thumb) proximal phalanx. The fracture line does not extend to the articular surface of the metacarpophalangeal joint. Soft tissue swelling and edema is present. Internal fixation of the fourth metacarpal with long wire, unchanged from 10/10/2022. Deformity of the proximal fifth metacarpal is unchanged. Report Dictated on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 Relations: JACK ORTIZ ([phone])[facility]ENTERMain [place] [employer] ([employer])[address] [place] [address] INR Coag (PPP) [Relative time] 1.0 {INR} Normal 0.9-1.1 [facility] Comment on above: Result Comment: Ba mmended Anticoagulant Therapy: SEE BELOW----- INR of 2.0 - 3.0 : - Prophylaxis of Venous Thrombosis (high-risk surgery) - Treatment of Venous Thrombosis - Treatment of Pulmonary Embolism (Includes tissue heart valves, Acute Myocardial Infarction to prevent systemic embolism, Valvular Heart Disease, and Atrial Fibrillation)----- INR of 2.5 - 3.5 : - Mechanical Prosthetic Valves (high risk) - If oral anticoagulant therapy is used to prevent Myocardial Infarction Performed By: #### L [id number] ####Representative Government Relations: JACK ORTIZ ([phone])[facility]ENTERMain SANDRA [employer] (SWRLAB)[address] [place] [address] PT Coag (PPP) [Time] 11.1 s Normal 9.0-12.0 [facility] Comment on above: Performed By: #### L [id number] ####Representative Government Relations: JACK ORTIZ ([id number])[facility]ENTERMain [place] [employer] (SWRL[employer])[address] [place] [address] Progress Noteon 10-28-2024 Progress Note Normal [facility] Progress Note Normal [facility] Progress Note Normal [facility] Progress Note Normal [facility] Progress Note Normal [facility] Progress Note Normal [facility] XR Humerus - right Viewson 1 Radiology Study observation (narrative) Deandre tejeda XR Shoulder - right 2 Viewso n 02-13-2024 Radiology Study observation (narrative) Deandre tejeda 30on 02-12-2024 30 Problem: Urinary Incontinence Goal: Perineal skin integrity is maintained or improved Outcome: Completed Normal [facility] 30 Normal [facility] 36on 02-12-2024 36 Diane, Patient will need a 2 week follow up appointment after repeat CT head with Dr. Marcial. Patient will need notified of scan and follow up date and time. Thank you Normal [facility] BASIC METABOLIC PANELon 10-2 Anion gap [Moles/Vol] 5 mmol/L Normal 3-13 [facility] Comment on above: Performed By: #### L AB15, [id number] ####Representative Government Relations: JACK ORTIZ ([phone])[facility])[address] [place] [address] Calcium [Mass/Vol] 7.7 mg/dL Low 8.4-10.4 [facility] Comment on above: Performed By: #### L AB15, [id number] ####Representative Government Relations: JACK ORTIZ ([id number])[facility] ([facility])[address] [place] [address] [place] Chloride [Moles/Vol] 104 mmol/L Normal 98-107 [facility] Comment on above: Performed By: #### L AB15, [id number] ####Representative Government Relations: JACK ORTIZ ([id number])[facility] ([facility])[address] [place] [address] [place] CO2 [Moles/Vol] 24 mmol/L Normal 22-30 [facility] Comment on above: Performed By: #### L AB15, [id number] ####Representative Government Relations: JACK ORTIZ ([phone])[facility])[address] [place] [address] [place] Creatinine [Mass/Vol] 0.51 mg/dL Low 0.66-1.25 [facility] Comment on above: Performed By: #### L AB15, [id number] ####Representative Government Relations: JACK ORTIZ ([phone])[facility] ([facility])[address] [place] [address] GLOMERULAR FILTRATION RATE ML/MIN/1.73 SQ M.PREDICTED >90.0 Normal >60.0 [facility] Comment on above: Result Comment: Calc ulation based on the Chronic Kidney Disease Epidemiology Collaboration (CKD-EPI) equation refit without adjustment for race Performed By: #### L AB15, [id number] ####Representative Government Relations: JACK ORTIZ ([phone])[facility] ([facility])[address] [place] [address] [place] Glucose [Mass/Vol] 166 mg/dL High 70-100 [facility] Comment on above: Performed By: #### L AB15, [id number] ####Representative Government Relations: JACK ORTIZ ([id number])[facility] ([facility])[address] [place] [address] [place] Potassium [Moles/Vol] 3.6 mmol/L Normal 3.5-5.1 [facility] Comment on above: Performed By: #### L AB15, [id number] ####Representative Government Relations: JACK ORTIZ ([phone])[facility] ([facility])[address] [place] [address] [place] Sodium [Moles/Vol] 133 mmol/L Low 135-145 [facility] Comment on above: Performed By: #### L AB15, [id number] ####Representative Government Relations: JACK ORTIZ ([phone])[facility] ([facility])[address] [place] [address] [place] Urea nitrogen [Mass/Vol] 11 mg/dL Normal 9-20 [facility] Comment on above: Performed By: #### L AB15, [id number] ####Representative Government Relations: JACK ORTIZ ([id number])[facility] ([facility])[address] [place] [address] Anion gap [Moles/Vol] 7 mmol/L Normal 3-13 [facility] Comment on above: Performed By: #### Abdelrahman AB113, LAB15, [id number] ####Representative Government Relations: JACK ORTIZ ([id number])[facility] ([facility])[address] [place] [address] Calcium [Mass/Vol] 7.7 mg/dL Low 8.4-10.4 [facility] Comment on above: Performed By: #### Abdelrahman AB113, LAB15, [id number] ####Representative Government Relations: JACK ORTIZ ([phone])[facility] ([facility])[address] [place] [address] Chloride [Moles/Vol] 101 mmol/L Normal 98-107 [facility] Comment on above: Performed By: #### Abdelrahman ABShravan, LAB15, [id number] ####Representative Government Relations: JACK ORTIZ ([phone])[facility] ([facility])[address] [place] [address] CO2 [Moles/Vol] 28 mmol/L Normal 22-30 [facility] Comment on above: Performed By: #### Abdelrahman GOMEZ, LAB15, [id number] ####Representative Government Relations: JACK ORTIZ ([id number])[facility])[address] [place] [address] Creatinine [Mass/Vol] 0.38 mg/dL Low 0.66-1.25 [facility] Comment on above: Performed By: #### Abdelrahman AB113, LAB15, [id number] ####Representative Government Relations: JACK ORTIZ ([id number])[facility] ([facility])[address] [place] [address] GLOMERULAR FILTRATION RATE ML/MIN/1.73 SQ M.PREDICTED >90.0 Normal >60.0 [facility] Comment on above: Result Comment: Calc ulation based on the Chronic Kidney Disease Epidemiology Collaboration (CKD-EPI) equation refit without adjustment for race Performed By: #### L AB113, LAB15, [id number] ####Representative Government Relations: JACK [id number])[facility] ([facility])[address] [place] [address] Glucose [Mass/Vol] 113 mg/dL High 70-100 [facility] Comment on above: Performed By: #### L AB113, LAB15, [id number] ####Representative Government Relations: JACK ORTIZ ([phone])[facility] ([facility])[address] [place] [address] Potassium [Moles/Vol] 3.4 mmol/L Low 3.5-5.1 [facility] Comment on above: Performed By: #### L AB113, LAB15, [id number] ####Representative Government Relations: JACK ORTIZ ([id number])[facility] ([facility])[address] [place] [address] Sodium [Moles/Vol] 137 mmol/L Normal 135-145 [facility] Comment on above: Performed By: #### L AB113, LAB15, [id number] ####Representative Government Relations: JACK ORTIZ ([phone])[facility] ([facility])[address] [place] [address] Urea nitrogen [Mass/Vol] 8 mg/dL Low 9-20 [facility] Comment on above: Performed By: #### L AB113, LAB15, [id number] ####Representative Government Relations: JACK ORTIZ ([phone])[facility] ([facility])[address] [place] [address] Basic metabolic 1998 panelon 02-12-2024 Anion gap [Moles/Vol] 5 mmol/L 3 - 13 mmol/L [facility] Calcium [Mass/Vol] 7.7 mg/dL Low 8.4 - 10. 4 mg/dL [facility] Chloride [Moles/Vol] 104 mmol/L 98 - 10 7 mmol/L [facility] CO2 [Moles/Vol] 24 mmol/L 22 - 30 mmol/L [facility] Creatinine [Mass/Vol] 0.51 mg/dL Low 0.66 - 1.25 mg/dL [facility] GFR/1.73 sq M.predicted (S/P/Bld) [Vol rate/Area] - PINF [facility] Comment on above: Calculation based on the Chronic Kidney Disease Epidemiology Collaboration (CKD-EPI) equation refit without adjustment for race Glucose [Mass/Vol] 166 mg/dL High 70 - 100 mg/dL [facility] Interpretation and review of laboratory results Abnormal [facility] [employer] Potassium [Moles/Vol] 3.6 mmol/L 3.5 - 5.1 mmol/L [facility] [employer] Sodium [Moles/Vol] 133 mmol/L Low 135 - 145 mmol/L [facility] [employer] Urea nitrogen [Mass/Vol] 11 mg/dL 9 - 20 mg/dL [facility] Anion gap [Moles/Vol] 7 mmol/L 3 - 13 mmol/L [facility] [employer] Calcium [Mass/Vol] 7.7 mg/dL Low 8.4 - 10. 4 mg/dL [facility] [employer] Chloride [Moles/Vol] 101 mmol/L 98 - 10 7 mmol/L [facility] [employer] CO2 [Moles/Vol] 28 mmol/L 22 - 30 mmol/L [facility] Creatinine [Mass/Vol] 0.38 mg/dL Low 0.66 - 1.25 mg/dL [facility] [employer] GFR/1.73 sq M.predicted (S/P/Bld) [Vol rate/Area] - PINF [facility] Comment on above: Calculation based on the Chronic Kidney Disease Epidemiology Collaboration (CKD-EPI) equation refit without adjustment for race Glucose [Mass/Vol] 113 mg/dL High 70 - 100 mg/dL [facility] Interpretation and review of laboratory results Abnormal [facility] Potassium [Moles/Vol] 3.4 mmol/L Low 3.5 - 5.1 mmol/L [facility] Sodium [Moles/Vol] 137 mmol/L 135 - 145 mmol/L [facility] Urea nitrogen [Mass/Vol] 8 mg/dL Low 9 - 20 mg/dL [facility] CBC W Auto Differential pane l (Bld)Ordered By: Carolina Barry on 02-12-2024 Basophils (Bld) [#/Vol] 0 10*3/uL 0.0 - 0.2 10*3/uL [facility] Basophils/100 WBC (Bld) 0.7 % 0.0 - 2.0 % [facility] Eosinophils (Bld) [#/Vol] 0 10*3/uL 0.0 - 0.5 10*3/uL [facility] Eosinophils/100 WBC (Bld) 0.5 % 0.0 - 6.0 % [facility] Erythrocyte distribution width (RBC) [Ratio] 20.2 % High 11.5 - 15.0 % [facility] Hematocrit (Bld) [Volume fraction] 31.7 % Low 40.0 - 52.0 % [facility] Hemoglobin (Bld) [Mass/Vol] 9.8 g/dL Low 13.0 - 18.0 g/dL [facility] [employer] Immature granulocytes (Bld) [#/Vol] 0 10*3/uL NINF - 0.1 10*3/uL [facility] Immature granulocytes/100 WBC (Bld) 0.5 % 0.0 - 2.0 % [facility] Interpretation and review of laboratory results Abnormal [facility] Lymphocytes (Bld) [#/Vol] 0.7 10*3/uL Low 1.0 - 4.3 10*3/uL [facility] Lymphocytes/100 WBC (Bld) 16.7 % 15.0 - 45.0 % [facility] MCH (RBC) [Entitic mass] 22.6 pg Low 26.0 - 34.0 pg [facility] MCHC (RBC) [Mass/Vol] 30.9 % 30.5 - 36.0 % [facility] MCV (RBC) [Entitic vol] 73.2 fL Low 77.0 - 99.0 fL [facility] Monocytes (Bld) [#/Vol] 0.4 10*3/uL 0.0 - 0.9 10*3/uL [facility] Monocytes/100 WBC (Bld) 9 % 5.0 - 13.0 % [facility] Neutrophils (Bld) [#/Vol] 2.9 10*3/uL 1.8 - 7.5 10*3/uL [facility] Neutrophils/100 WBC (Bld) 72.6 % 38.0 - 82.0 % [facility] [employer] Nucleated RBC/100 WBC (Bld) [Ratio] 0 % [facility] [employer] Platelet mean volume (Bld) [Entitic vol] 10 fL 9.0 - 12.7 fL [facility] Platelets (Bld) [#/Vol] 137 10*3/uL Low 140 - 440 10*3/uL [facility] RBC (Bld) [#/Vol] 4.33 10*6/uL Low 4.40 - 5.9 0 10*6/uL [facility] WBC (Bld) [#/Vol] 4 10*3/uL 3.6 - 10.7 10*3/uL [facility] CBC WITH AUTO DIFFERENTIALon 02-12-2024 Basophils (Bld) [#/Vol] 0.0 10*3/uL Normal 0.0-0.2 [facility] Comment on above: Performed By: #### L [id number] ####Representative Government Relations: JACK ORTIZ ([phone])[facility])[address] [place] [address] Basophils/100 WBC (Bld) 0.7 % Normal 0.0-2.0 [facility] Comment on above: Performed By: #### L [id number] ####Representative Government Relations: JACK ORTIZ ([phone])[facility])[address] [place] [address] Eosinophils (Bld) [#/Vol] 0.0 10*3/uL Normal 0.0-0.5 [facility] Comment on above: Performed By: #### L [id number] ####Representative Government Relations: JACK ORTIZ ([phone])[facility])[address] [place] [address] Eosinophils/100 WBC (Bld) 0.5 % Normal 0.0-6.0 [facility] Comment on above: Performed By: #### L [id number] ####Representative Government Relations: JACK ORTIZ ([id number])[facility])[address] [place] [address] Erythrocyte distribution width (RBC) [Ratio] 20.2 % High 11.5-15.0 [facility] Comment on above: Performed By: #### L [id number] ####Representative Government Relations: JACK ORTIZ ([phone])[facility])[address] [place] [address] Hematocrit (Bld) [Volume fraction] 31.7 % Low 40.0-52.0 [facility] Comment on above: Performed By: #### L [id number] ####Representative Government Relations: JACK ORTIZ ([phone])[facility])[address] [place] [address] Hemoglobin (Bld) [Mass/Vol] 9.8 g/dL Low 13.0-18.0 [facility] Comment on above: Performed By: #### L [id number] ####Representative Government Relations: JACK ORTIZ ([phone])[facility])[address] [place] [address] IMMATURE GRANS % 0.5 % Normal 0.0-2.0 [facility] Comment on above: Performed By: #### L [id number] ####Representative Government Relations: JACK ORTIZ ([id number])[address] IMMATURE GRANS ABSOLUTE 0.0 10*3/uL Normal <0.1 [facility] Comment on above: Performed By: #### L [id number] ####Representative Government Relations: JACK ORTIZ ([phone])[facility])[address] [place] [address] Lymphocytes (Bld) [#/Vol] 0.7 10*3/uL Low 1.0-4.3 [facility] Comment on above: Performed By: #### L [id number] ####Representative Government Relations: JACK ORTIZ ([phone])[facility])[address] [place] [address] Lymphocytes/100 WBC (Bld) 16.7 % Normal 15.0-45.0 [facility] Comment on above: Performed By: #### L [id number] ####Representative Government Relations: JACK ORTIZ ([phone])[facility])[address] [place] [address] MCH (RBC) [Entitic mass] 22.6 pg Low 26.0-34.0 [facility] Comment on above: Performed By: #### L [id number] ####Representative Government Relations: JACK ORTIZ ([id number])[facility] [place] [address] MCHC 30.9 % Normal 30.5-36.0 [facility] Comment on above: Performed By: #### L [id number] ####Representative Government Relations: JACK ORTIZ ([phone])[facility] ([facility])[address] [place] [address] MCV (RBC) [Entitic vol] 73.2 fL Low 77.0-99.0 [facility] Comment on above: Performed By: #### L [id number] ####Representative Government Relations: JACK ORTIZ ([phone])[facility])[address] [place] [address] Monocytes (Bld) [#/Vol] 0.4 10*3/uL Normal 0.0-0.9 [facility] Comment on above: Performed By: #### L [id number] ####Representative Government Relations: JACK ORTIZ ([id number])[facility] ([facility])[address] [place] [address] Monocytes/100 WBC (Bld) 9.0 % Normal 5.0-13.0 [facility] Comment on above: Performed By: #### L [id number] ####Representative Government Relations: JACK ORTIZ ([phone])[facility] ([facility])[address] [place] [address] NEUTROPHILS ABSOLUTE 2.9 10*3/uL Normal 1.8-7.5 [facility] Comment on above: Performed By: #### L [id number] ####Representative Government Relations: JACK ORTIZ ([id number])[facility])[address] [place] [address] Neutrophils/100 WBC (Bld) 72.6 % Normal 38.0-82.0 [facility] Comment on above: Performed By: #### L [id number] ####Representative Government Relations: JACK ORTIZ ([id number])[facility] ([facility])[address] [place] [address] NRBC 0.0 /100 WBCs Normal 0.0-2.0 [facility] Comment on above: Performed By: #### L [id number] ####Representative Government Relations: JACK ORTIZ ([phone])[facility])[address] [place] [address] Platelet mean volume (Bld) [Entitic vol] 10.0 fL Normal 9.0-12.7 [facility] Comment on above: Performed By: #### L [id number] ####Representative Government Relations: JACK ORTIZ ([phone])[facility] ([facility])[address] [place] [address] Platelets (Bld) [#/Vol] 137 10*3/uL Low 140-440 [facility] Comment on above: Performed By: #### L [id number] ####Representative Government Relations: JACK ORTIZ ([phone])[facility])[address] [place] [address] RBC (Bld) [#/Vol] 4.33 10*6/uL Low 4.40-5.90 [facility] Comment on above: Performed By: #### L [id number] ####Representative Government Relations: JACK ORTIZ ([phone])[facility])[address] [place] [address] WBC (Bld) [#/Vol] 4.0 10*3/uL Normal 3.6-10.7 [facility] Comment on above: Performed By: #### L [id number] ####Representative Government Relations: JACK ORTIZ ([phone])[facility])[address] [place] [address] CT HEAD WO IV CONTRASTon CT HEAD WO IV CONTRAST Normal [facility] CT Head WO contraston 2023 Impression: Overall stable CT head. Report Dictated on Electronically Signed By: Ge Sifuentes MD Electronically Signed Date/Time: 02/12/2024 7:25 AM [facility] Patient Name: EL SMITH : 1980 Exam Date/Time: 02/12/2024 00:20 Procedure: CT HEAD WO IV CONTRAST Ordering Provider: MCCOLLUM LAURA Reason For Exam: Follow up intracranial hematoma Examination: CT Head Clinical Information: Intracranial hemorrhage. Comparison: 02/11/2024 Findings: Serial axial [address] images were obtained through the skull without intravenous contrast. Coronal, sagittal, and axial series were reviewed. Dose reduction was employed with automated exposure control. Stable trace small amount of acute posttraumatic subarachnoid hemorrhage in the right sylvian fissure and within several right frontal sulci. A tiny right cerebral convexity subdural hematoma is stable measuring 2 to 3 mm in thickness. Mild gyral swelling in the right frontal lobe. Stable possible small left parietal subdural hygroma. No intraventricular hemorrhage is identified. The ventricular system and remaining cortical sulci are within normal limits. The rowley-white differentiation is well preserved. No areas of mass-effect or infarct are seen. See dedicated maxillofacial CT for facial bone fractures and right globe proptosis. [facility] Ge Sifuentes MD - 02/12/2024 Patient Name: EL SMITH : 1980 [facility]#: [id number] Exam Date/Time: 02/12/2024 00:20 Procedure: CT HEAD WO IV CONTRAST Ordering Provider: MCCOLLUM LAURA Reason For Exam: Follow up intracranial hematoma Examination: CT Head Clinical Information: Intracranial hemorrhage. Comparison: 02/11/2024 Findings: Serial axial [address] images were obtained through the skull without intravenous contrast. Coronal, sagittal, and axial series were reviewed. Dose reduction was employed with automated exposure control. Stable trace small amount of acute posttraumatic subarachnoid hemorrhage in the right sylvian fissure and within several right frontal sulci. A tiny right cerebral convexity subdural hematoma is stable measuring 2 to 3 mm in thickness. Mild gyral swelling in the right frontal lobe. Stable possible small left parietal subdural hygroma. No intraventricular hemorrhage is identified. The ventricular system and remaining cortical sulci are within normal limits. The rowley-white differentiation is well preserved. No areas of mass-effect or infarct are seen. See dedicated maxillofacial CT for facial bone fractures and right globe proptosis. IMPRESSION: Impression: Overall stable CT head. Report Dictated on Electronically Signed By: Ge Sifuentes MD Electronically Signed Date/Time: 02/12/2024 7:25 AM EDT [facility] Radiology Study observation (narrative) Deandre Randolph alth CT Head WO contrastOrdered B y: Ge Sifuentes on 02-12-2024 [facility] Work Phone: Consulton 02-12-2024 Consult Normal [facility] Consult Normal [facility] Consult Normal [facility] ECG 12-LEADon 02-12-2024 ECG 12-LEAD IMPRESSION: Sinus tachycardia Probable left ventricular hypertrophy Probable inferior infarct, old Lateral infarct, age indeterminate Electronically Signed On 02-12-2024 13:14:34 EDT by Isha Antonio Normal [facility] Laboratory - Chemistry and C hemistry - challengeon 02-12-2024 Magnesium [Mass/Vol] 1.5 mg/dL Low 1.6 - 2 .3 mg/dL [facility] Laboratory - Chemistry and C hemistry - challengeOrdered By: Daniel Venegas on 02-12-2024 Magnesium [Mass/Vol] 0.9 mg/dL Critically low 1.6 - 2.3 mg/dL [facility] Laboratory - Drug toxicology Ordered By: Carmelita Frias on 02-12-2024 Amphetamines Ql (U) Negative Negative [facility] Barbiturates screen method Nom (U) Positive Negative [facility] Benzodiazepines screen method Nom (U) Positive Negative [facility] Cocaine Ql (U) Negative Negative [facility] th Ethanol [Mass/Vol] Negative Negative [facility] Methadone Ql (U) Negative Negative [facility] Opiates Screen Ql (U) Negative Negative [facility] MAGNESIUMon 02-12-2024 Magnesium [Mass/Vol] 1.5 mg/dL Low 1.6-2.3 [facility] Comment on above: Performed By: #### L [id number], [id number] ####Representative Government Relations: JACK ORTIZ ([id number])[facility] ([address] Magnesium [Mass/Vol] 0.9 mg/dL Critically low 1.6-2.3 [facility] Comment on above: Performed By: #### L [id number], [id number], [id number] ####Representative Government Relations: JACK ORTIZ ([phone])[facility] ([facility])[address] [place] [address] MEDICATION ASSISTED TREATMEN T PANELon 02-12-2024 Amphetamines Ql (U) Negative Normal Negative [facility] Comment on above: Performed By: #### L [id number] ####Representative Government Relations: JACK ORTIZ ([id number])[facility] ([facility])[address] [place] [address] BARBITURATES Positive Normal Negative [facility] Comment on above: Performed By: #### L [id number] ####Representative Government Relations: JACK ORTIZ ([id number])[facility] ([facility])[address] [place] [address] Benzodiazepines Ql (U) Positive Normal Negative [facility] Comment on above: Performed By: #### L [id number] ####Representative Government Relations: JACK ORTIZ ([phone])[facility] ([facility])[address] [place] [address] BUPRENORPHINE SCREEN Negative Normal Negative [facility] Comment on above: Performed By: #### L [id number] ####Representative Government Relations: JACK ORTIZ ([phone])[facility] ([facility])[address] [place] [address] Cocaine Ql (U) Negative Normal Negative [facility] Comment on above: Performed By: #### L [id number] ####Representative Government Relations: JACK ORTIZ ([id number])[facility] ([facility])[address] [place] [address] ETHANOL-ETOHO Negative Normal Negative [facility] Comment on above: Result Comment: ORDE R COMMENTS:The expected value for the drugs listed above is Negative.The following drugs or drug groups have been screened for by Immunoassay at the following thresholds:Amphetamine class(1000ng/mL)Barbituates(200ng/mL)Benzodiazepines(200ng/mL) Cocaine(300ng/mL)Ethanol (50 ng/mL)Methadone(300ng/mL)Opiates(300ng/mL)Oxycodone(100ng/mL)P CP(25ng/mL)Buprenorphine(5ng/mL)THC(50ng/mL)Fentanyl(1ng/mL)Po sitive results are NOT confirmed by a more specific alternative method unless requested. If confirmation is needed, request confirmation under separate order.NOTE: These results are for medical treatment only. Analysis performed using non-forensic procedures. Performed By: #### L [id number] ####Representative Government Relations: JACK ORTIZ ([id number])[facility] ([facility])[address] [place] [address] FENTANYL Negative Normal Negative [facility] Comment on above: Performed By: #### L [id number] ####Representative Government Relations: JACK ORTIZ ([id number])[facility] ([facility])[address] [place] [address] Methadone Ql (U) Negative Normal Negative [facility] Comment on above: Performed By: #### L [id number] ####Representative Government Relations: JACK ORTIZ ([id number])[facility] ([facility])[address] [place] [address] Opiates Ql (U) Negative Normal Negative [facility] Comment on above: Performed By: #### L [id number] ####Representative Government Relations: JACK ORTIZ ([id number])[facility] ([facility])[address] [place] [address] OXYCODONE/OXYMORPHONE Negative Normal Negative [facility] Comment on above: Performed By: #### L [id number] ####Representative Government Relations: JACK ORTIZ ([id number])[facility] ([facility])[address] [place] [address] PCP Negative Normal Negative [facility] Comment on above: Performed By: #### L [id number] ####Representative Government Relations: JACK ORTIZ ([id number])[facility] ([facility])[address] [place] [address] THC-MTTHC Positive Normal Negative [facility] Comment on above: Performed By: #### L [id number] ####Representative Government Relations: JACK ORTIZ ([id number])[facility] ([facility])[address] [place] [address] Magnesium [Mass/Vol]on 02-11 Interpretation and review of laboratory results Abnormal [facility] Magnesium [Mass/Vol]Ordered By: Daniel Venegas on 02-12-2024 Interpretation and review of laboratory results Abnormal [facility] No Panel InformationOrdered By: Carmelita Frias on 02-12-2024 BUPRENORPHINE SCREEN Negative Negative [facility] FENTANYL Negative Negative [facility] OXYCODONE/OXYMORPHONE Negative Negative [facility] PCP Negative Negative [facility] THC Positive Negative [facility] The expected value for the drugs listed above is Negative. The following drugs or drug groups have been screened for by Immunoassay at the following thresholds: Amphetamine class(1000ng/mL) Barbituates(200ng/mL) Benzodiazepines(200ng /mL) Cocaine(300ng/mL) Ethanol (50 ng/mL) Methadone(300ng/mL) Opiates(300ng/mL) Oxycodone(100ng/mL) PCP(25ng/mL) Buprenorphine(5ng/mL) THC(50ng/mL) Fentanyl(1ng/mL) Positive results are NOT confirmed by a more specific alternative method unless requested. If confirmation is needed, request confirmation under separate order. NOTE: These results are for medical treatment only. Analysis performed using non-forensic procedures. [facility] No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 midline shift identified. The posterior fossa is grossly unremarkable. The mastoid air cells are grossly clear. Acute comminuted fracture of the right maxillary sinus present with nondisplaced fracture of the right orbital floor. Moderate opacification of the right maxillary sinus. [facility] Bethel Hansen MD - 02/11/2024 Patient Name: EL SMITH : 1980 Exam Date/Time: 02/11/2024 13:28 Procedure: CT HEAD WO IV CONTRAST Ordering Provider: CAMPOS MICHAEL Reason For Exam: trauma EXAMINATION: CT head TECHNIQUE: Axial CT images of the head were obtained without IV contrast at 3 mm intervals. Coronal and sagittal reconstructions were also provided. Dose reduction was employed with automated exposure control. INDICATION: trauma Findings: Acute subarachnoid hemorrhage present in the right sylvian fissure and small amount of hemorrhage tracking along the right MCA. The ventricles, sulci and cisterns are otherwise grossly normal in size and configuration. The rowley-white differentiation is grossly intact. There is no midline shift identified. The posterior fossa is grossly unremarkable. The mastoid air cells are grossly clear. Acute comminuted fracture of the right maxillary sinus present with nondisplaced fracture of the right orbital floor. Moderate opacification of the right maxillary sinus. IMPRESSION: Acute right-sided subarachnoid hemorrhage Acute right-sided facial bone fractures. Poor dentition with dental caries. This represents a critical test result (CTR). Findings were communicated via FanChat[employer] secure chat with receipt to BETSY CAMPOS on 02/11/2024 1:36 PM EDT. Examination: CT cervical spine Indication: trauma Technique: Axial CT images of the cervical spine were obtained at 1 mm intervals. Dose reduction was employed with automatic exposure control. Sagittal and coronal reconstructions were provided as well. Findings: The cervical vertebral bodies are in gross anatomic alignment. There is no acute cervical fracture. The disc spaces are grossly maintained. The neuroforamina are grossly patent. There is no prevertebral soft tissue swelling. No cervical adenopathy is demonstrated. Impression: Comminuted mildly displaced fractures of the right maxillary sinus with partial opacification and displaced fracture through the left mandibular condyle/neck with anteriorly dislocated left TMJ. No acute compression fracture of the cervical spine. Examination: CT facial bones Indication: trauma Technique: Axial CT images of the facial bones were obtained at 1 mm intervals Sagittal and coronal reconstructions were reviewed as well. Dose reduction was employed with automatic exposure control. Findings: Slightly comminuted fractures through the lateral and anterior portion of the right maxillary sinus present with moderate opacification. Nondisplaced orbital floor fracture present on the right. There does appear to be mild proptosis of the right lobe compared to the left. Poor dentition with multiple dental caries and numerous missing teeth. Impression: Comminuted mildly displaced fractures of the right maxillary sinus with partial opacification and displaced fracture through the left mandibular condyle with anteriorly dislocated left TMJ. Mild proptosis of the right lobe. Report Dictated on Electronically Signed By: Bethel Hansen MD Electronically Signed Date/Time: 02/11/2024 1:41 PM EDT [facility] [place] Radiology Study observation (narrative) [facility] alth CT Head WO contrastOrdered B y: Vlad Otero on 02-11-2024 [facility] [place] Work Phone: CT MAXILLOFACIAL WO IV CONTR Buffy 02-11-2024 CT MAXILLOFACIAL WO IV CONTRAST Normal [facility] CT Maxillofacial region WO a nd W contrast Luca 02-11-2024 Patient Name: EL SMITH : 1980 Exam Date/Time: 02/11/2024 13:28 Procedure: CT MAXILLOFACIAL WO IV CONTRAST Ordering Provider: CAMPOS MICHAEL Reason For Exam: trauma EXAMINATION: CT head TECHNIQUE: Axial CT images of the head were obtained without IV contrast at 3 mm intervals. Coronal and sagittal reconstructions were also provided. Dose reduction was employed with automated exposure control. INDICATION: trauma Findings: Acute subarachnoid hemorrhage present in the right sylvian fissure and small amount of hemorrhage tracking along the right MCA. The ventricles, sulci and cisterns are otherwise grossly normal in size and configuration. The rowley-white differentiation is grossly intact. There is no midline shift identified. The posterior fossa is grossly unremarkable. The mastoid air cells are grossly clear. Acute comminuted fracture of the right maxillary sinus present with nondisplaced fracture of the right orbital floor. Moderate opacification of the right maxillary sinus. [facility] Bethel Hansen MD - 02/11/2024 Patient Name: EL SMITH : 1980 Exam Date/Time: 02/11/2024 13:28 Procedure: CT MAXILLOFACIAL WO IV CONTRAST Ordering Provider: CAMPOS MICHAEL Reason For Exam: trauma EXAMINATION: CT head TECHNIQUE: Axial CT images of the head were obtained without IV contrast at 3 mm intervals. Coronal and sagittal reconstructions were also provided. Dose reduction was employed with automated exposure control. INDICATION: trauma Findings: Acute subarachnoid hemorrhage present in the right sylvian fissure and small amount of hemorrhage tracking along the right MCA. The ventricles, sulci and cisterns are otherwise grossly normal in size and configuration. The rowley-white differentiation is grossly intact. There is no midline shift identified. The posterior fossa is grossly unremarkable. The mastoid air cells are grossly clear. Acute comminuted fracture of the right maxillary sinus present with nondisplaced fracture of the right orbital floor. Moderate opacification of the right maxillary sinus. IMPRESSION: Acute right-sided subarachnoid hemorrhage Acute right-sided facial bone fractures. Poor dentition with dental caries. This represents a critical test result (CTR). Findings were communicated via FanChat[employer] secure chat with receipt to BETSY CAMPOS on 02/11/2024 1:36 PM EDT. Examination: CT cervical spine Indication: trauma Technique: Axial CT images of the cervical spine were obtained at 1 mm intervals. Dose reduction was employed with automatic exposure control. Sagittal and coronal reconstructions were provided as well. Findings: The cervical vertebral bodies are in gross anatomic alignment. There is no acute cervical fracture. The disc spaces are grossly maintained. The neuroforamina are grossly patent. There is no prevertebral soft tissue swelling. No cervical adenopathy is demonstrated. Impression: Comminuted mildly displaced fractures of the right maxillary sinus with partial opacification and displaced fracture through the left mandibular condyle/neck with anteriorly dislocated left TMJ. No acute compression fracture of the cervical spine. Examination: CT facial bones Indication: trauma Technique: Axial CT images of the facial bones were obtained at 1 mm intervals Sagittal and coronal reconstructions were reviewed as well. Dose reduction was employed with automatic exposure control. Findings: Slightly comminuted fractures through the lateral and anterior portion of the right maxillary sinus present with moderate opacification. Nondisplaced orbital floor fracture present on the right. There does appear to be mild proptosis of the right lobe compared to the left. Poor dentition with multiple dental caries and numerous missing teeth. Impression: Comminuted mildly displaced fractures of the right maxillary sinus with partial opacification and displaced fracture through the left mandibular condyle with anteriorly dislocated left TMJ. Mild proptosis of the right lobe. Report Dictated on Electronically Signed By: Bethel Hansen MD Electronically Signed Date/Time: 02/11/2024 1:41 PM EDT [facility] [place] Radiology Study observation (narrative) Deandre Randolph alth CT Unspecified body region 3 D post processingon 02-11-2024 Impression: 3-D reconstruction of multiple facial bone fractures for surgical planning purposes. Report Dictated on Electronically Signed By: Christian Du MD Electronically Signed Date/Time: 02/11/2024 7:46 PM EDT [facility] 1980 [id number] Exam Date/Time: 02/11/2024 19:35 Procedure: CT 3D RECONSTRUCTION Ordering Provider: MCCOLLUM LAURA Reason For Exam: facial bone fractures Examination: CT 3D RECONSTRUCTION Clinical: facial bone fractures Comparison: Maxillofacial CT 02/11/2024 Findings: Serial axial 0.[address] images were reconstructed. 3-D images were reconstructed on a dedicated [employer] workstation. Dose reduction was employed with automated exposure control. Multiple facial bone fractures as previously described. [facility] Christian Du MD - 02/11/2024 Patient Name: [facility] SMITH : 1980 [id number] Exam Date/Time: 02/11/2024 19:35 Procedure: CT 3D RECONSTRUCTION Ordering Provider: MCCOLLUM LAURA Reason For Exam: facial bone fractures Examination: CT 3D RECONSTRUCTION Clinical: facial bone fractures Comparison: Maxillofacial CT 02/11/2024 Findings: Serial axial 0.[address] images were reconstructed. 3-D images were reconstructed on a dedicated [employer] workstation. Dose reduction was employed with automated exposure control. Multiple facial bone fractures as previously described. IMPRESSION: Impression: 3-D reconstruction of multiple facial bone fractures for surgical planning purposes. Report Dictated on Electronically Signed By: Christian Du MD Electronically Signed Date/Time: 02/11/2024 7:46 PM EDT [facility] Radiology Study observation (narrative) Deandre Randolph alth CT Unspecified body region 3 D post processingOrdered By: Christian Du on 02-11-2024 [facility] Work Phone: Comprehensive metabolic 1998 panelon 02-11-2024 Albumin [Mass/Vol] 3 g/dL Low 3.5 - 5.0 g/dL [facility] ALP [Catalytic activity/Vol] 212 U/L High 38 - 126 U/L [facility] ALT [Catalytic activity/Vol] 26 U/L 0 - 49 U/L [facility] Anion gap [Moles/Vol] 10 mmol/L 3 - 13 mmol/L [facility] AST [Catalytic activity/Vol] 103 U/L High 15 - 46 U/L [facility] Bilirubin [Mass/Vol] 0.4 mg/dL 0.2 - 1 .3 mg/dL [facility] Calcium [Mass/Vol] 8.2 mg/dL Low 8.4 - 10. 4 mg/dL [facility] Chloride [Moles/Vol] 102 mmol/L 98 - 10 7 mmol/L [facility] CO2 [Moles/Vol] 30 mmol/L 22 - 30 mmol/L [facility] Creatinine [Mass/Vol] 0.57 mg/dL Low 0.66 - 1.25 mg/dL [facility] GFR/1.73 sq M.predicted (S/P/Bld) [Vol rate/Area] - PINF [facility] Comment on above: Calculation based on the Chronic Kidney Disease Epidemiology Collaboration (CKD-EPI) equation refit without adjustment for race Glucose [Mass/Vol] 87 mg/dL 70 - 100 mg/dL [facility] Potassium [Moles/Vol] 2.9 mmol/L Low 3.5 - 5.1 mmol/L [facility] Protein [Mass/Vol] 6.7 g/dL 6.3 - 8.2 g/dL [facility] Sodium [Moles/Vol] 142 mmol/L 135 - 145 mmol/L [facility] Urea nitrogen [Mass/Vol] 11 mg/dL 9 - 20 mg/dL [facility] Consulton 02-11-2024 Consult Normal [facility] ED Nursing Noteon 02-11-2024 ED Nursing Note Pt drowsy, still arouses to verbal stimuli, mother bedside. IV initiated. Pt states he needs to void. Urinal placed. Melani Fraire RN 02/11/24 135 Normal [facility] ED Nursing Note Normal [facility] ED Provider Noteon ED Provider Note Normal [facility] ETHANOLon 02-11-2024 ETHANOL IN SER/PLAS 0.224 g/dL High 0.000-0.010 [facility] Comment on above: Result Comment: PAGE Menezes COMMENTS:NOTE: This result is for medical treatment only. Analysis performed using non-forensic procedures. Performed By: #### L [id number], [id number] ####Representative Government Relations: JACK ORTIZ ([phone])[facility] [employer] ([employer])[address] [place] [address] Ethanol (Bld) [Mass/Vol]on 1 Ethanol [Mass/Vol] 0.224 g/dL High 0.000 - 0 .010 g/dL [facility] LACTIC ACID WITH REFLEXon Lactate [Moles/Vol] 1.9 mmol/L Normal 0.7-2.0 [facility] Comment on above: Performed By: #### L [id number] ####Representative Government Relations: JACK ORTIZ ([phone])[facility] [employer] ([employer])[address] [place] [address] Laboratory - Chemistry and C hemistry - challengeon 02-11-2024 Lactate [Moles/Vol] 1.9 mmol/L 0.7 - 2. 0 mmol/L [facility] Laboratory - Coagulationon 1 PT Coag (Bld) [Time] 11.2 s 9.0 - 12.[address] [facility] No Panel Informationon 02-10 Interpretation and review of laboratory results Abnormal [facility] Interpretation and review of laboratory results Normal [facility] Acute right-sided subarachnoid hemorrhage Acute right-sided facial bone fractures. Poor dentition with dental caries. This represents a critical test result (CTR). Findings were communicated via [employer] secure chat with receipt to BETSY CAMPOS on 02/11/2024 1:36 PM EDT. Examination: CT cervical spine Indication: trauma Technique: Axial CT images of the cervical spine were obtained at 1 mm intervals. Dose reduction was employed with automatic exposure control. Sagittal and coronal reconstructions were provided as well. Findings: The cervical vertebral bodies are in gross anatomic alignment. There is no acute cervical fracture. The disc spaces are grossly maintained. The neuroforamina are grossly patent. There is no prevertebral soft tissue swelling. No cervical adenopathy is demonstrated. Impression: Comminuted mildly displaced fractures of the right maxillary sinus with partial opacification and displaced fracture through the left mandibular condyle/neck with anteriorly dislocated left TMJ. No acute compression fracture of the cervical spine. Examination: CT facial bones Indication: trauma Technique: Axial CT images of the facial bones were obtained at 1 mm intervals Sagittal and coronal reconstructions were reviewed as well. Dose reduction was employed with automatic exposure control. Findings: Slightly comminuted fractures through the lateral and anterior portion of the right maxillary sinus present with moderate opacification. Nondisplaced orbital floor fracture present on the right. There does appear to be mild proptosis of the right lobe compared to the left. Poor dentition with multiple dental caries and numerous missing teeth. Impression: Comminuted mildly displaced fractures of the right maxillary sinus with partial opacification and displaced fracture through the left mandibular condyle with anteriorly dislocated left TMJ. Mild proptosis of the right lobe. Report Dictated on Electronically Signed By: Bethel Hansen MD Electronically Signed Date/Time: 02/11/2024 1:41 PM [facility] No Panel InformationOrdered By: Bethel Hansen on 02-11-2024 [employer] Phone: PROTHROMBIN TIMEon INR Coag (PPP) [Relative time] 1.0 {INR} Normal 0.9-1.[address] [facility] Comment on above: Result Comment: Ba mmended Anticoagulant Therapy: SEE BELOW----- INR of 2.0 - 3.0 : - Prophylaxis of Venous Thrombosis (high-risk surgery) - Treatment of Venous Thrombosis - Treatment of Pulmonary Embolism (Includes tissue heart valves, Acute Myocardial Infarction to prevent systemic embolism, Valvular Heart Disease, and Atrial Fibrillation)----- INR of 2.5 - 3.5 : - Mechanical Prosthetic Valves (high risk) - If oral anticoagulant therapy is used to prevent Myocardial Infarction Performed By: #### L [id number] ####Representative Government Relations: JACK ORTIZ ([phone])[facility] [employer] ([employer])[address] PT Coag (PPP) [Time] 11.2 s Normal 9.0-12.0 [facility] Comment on above: Performed By: #### L [id number] ####Representative Government Relations: JACK ORTIZ ([phone])[facility] [employer] (SW[employer])[address] [place] [address] PT Coag (Bld) [Time]on 02-10 INR Coag (PPP) [Relative time] 1 {INR} 0.9 - 1.1 [facility] Comment on above: Recommended Anticoag ulant Therapy: SEE BELOW ----- INR of 2.0 - 3.0 : - Prophylaxis of Venous Thrombosis (high-risk surgery) - Treatment of Venous Thrombosis - Treatment of Pulmonary Embolism (Includes tissue heart valves, Acute Myocardial Infarction to prevent systemic embolism, Valvular Heart Disease, and Atrial Fibrillation) ----- INR of 2.5 - 3.5 : - Mechanical Prosthetic Valves (high risk) - If oral anticoagulant therapy is used to prevent Myocardial Infarction Interpretation and review of laboratory results Normal [facility] XR Chest Single viewon 02-10 FINDINGS/IMPRESSION: Limitations: Patient positioning/rotation Lines, tubes, and devices: None. Cardiomediastinal silhouette: Heart size is within normal limits. Lungs/Pleura: Somewhat low lung volumes with suspected left greater than right basilar atelectasis. Previously seen nodular opacities inferior right lung less conspicuous than on prior study. No sizable pleural effusions. No pneumothorax. Osseous structures: Degenerative spondylosis in the visualized spine. Soft tissues: No soft tissue abnormality is detected. Report Dictated on Electronically Signed By: Mark Finnegan MD Electronically Signed Date/Time: 02/11/2024 1:16 PM T [facility] [employer] [facility] Patient Name: EL SMITH : 1980 Exam Date/Time: 02/11/2024 13:27 Procedure: XR CHEST 1 VIEW Ordering Provider: CAMPOS MICHAEL Reason For Exam: trauma CHEST - PORTABLE: CLINICAL INDICATION: Trauma. Chest pain. TECHNIQUE: Portable AP COMPARISON: 01/28/2024. [facility] Fe Finnegan MD - 02/11/2024 Patient Name: EL SMITH : 1980 [id number] Exam Date/Time: 02/11/2024 13:27 Procedure: XR CHEST 1 VIEW Ordering Provider: CAMPOS MICHAEL Reason For Exam: trauma CHEST - PORTABLE: CLINICAL INDICATION: Trauma. Chest pain. TECHNIQUE: Portable AP COMPARISON: 01/28/2024. IMPRESSION: FINDINGS/IMPRESSION: Limitations: Patient positioning/rotation Lines, tubes, and devices: None. Cardiomediastinal silhouette: Heart size is within normal limits. Lungs/Pleura: Somewhat low lung volumes with suspected left greater than right basilar atelectasis. Previously seen nodular opacities inferior right lung less conspicuous than on prior study. No sizable pleural effusions. No pneumothorax. Osseous structures: Degenerative spondylosis in the visualized spine. Soft tissues: No soft tissue abnormality is detected. Report Dictated on Electronically Signed By: Mark Finnegan MD Electronically Signed Date/Time: 02/11/2024 1:16 PM EDT [facility] Radiology Study observation (narrative) [facility] XR Chest Single viewOrdered By: Fe Finnegan on 02-11-2024 [facility] Work Phone: CBC W Auto Differential pane l (Bld)Ordered By: Cale Still on 02-08-2024 Erythrocyte distribution width (RBC) [Ratio] 19.2 % High 11.5 - 15.0 % [facility] Hematocrit (Bld) [Volume fraction] 36.5 % Low 40.0 - 52.0 % [facility] Hemoglobin (Bld) [Mass/Vol] 11.8 g/dL Low 13.0 - 18.0 g/dL [facility] Interpretation and review of laboratory results Abnormal [facility] MCH (RBC) [Entitic mass] 23.2 pg Low 26.0 - 34.0 pg [facility] MCHC (RBC) [Mass/Vol] 32.3 % 30.5 - 36.0 % [facility] MCV (RBC) [Entitic vol] 71.9 fL Low 77.0 - 99.0 fL [facility] Platelet mean volume (Bld) [Entitic vol] 8.7 fL Low 9.0 - 12.7 fL [facility] Platelets (Bld) [#/Vol] 129 10*3/uL Low 140 - 440 10*3/uL [facility] RBC (Bld) [#/Vol] 5.08 10*6/uL 4.40 - 5.9 0 10*6/uL [facility] WBC (Bld) [#/Vol] 5.9 10*3/uL 3.6 - 10.7 10*3/uL [facility] CBC WITH AUTO DIFFERENTIALon 02-08-2024 Erythrocyte distribution width (RBC) [Ratio] 19.2 % High 11.5-15.0 [facility] Comment on above: Performed By: #### L [id number], [id number] ####Representative Government Relations: SALTY PRESCOTT ([phone])[facility] ([facility])[address] [place] [address] Hematocrit (Bld) [Volume fraction] 36.5 % Low 40.0-52.0 [facility] Comment on above: Performed By: #### L [id number], [id number] ####Representative Government Relations: SALTY PRESCOTT ([phone])[facility] ([facility])[address] [place] [address] Hemoglobin (Bld) [Mass/Vol] 11.8 g/dL Low 13.0-18.0 [facility] Comment on above: Performed By: #### L [id number], [id number] ####Representative Government Relations: SALTY PRESCOTT ([phone])[facility] ([facility])[address] MCH (RBC) [Entitic mass] 23.2 pg Low 26.0-34.0 [facility] Comment on above: Performed By: #### L [id number], [id number] ####Representative Government Relations: SALTY PRESCOTT ([phone])[facility] [place] ([facility])[address] MCHC 32.3 % Normal 30.5-36.0 [facility] Comment on above: Performed By: #### L [id number], [id number] ####Representative Government Relations: SALTY PRESCOTT ([id number])[facility] [place] (SBHL[facility])[address] MCV (RBC) [Entitic vol] 71.9 fL Low 77.0-99.0 [facility] Comment on above: Performed By: #### L [id number], [id number] ####Representative Government Relations: SALTY PRESCOTT ([phone])[facility] [place] (SBHLAB)[address] Platelet mean volume (Bld) [Entitic vol] 8.7 fL Low 9.0-12.7 [facility] Comment on above: Performed By: #### L [id number], [id number] ####Representative Government Relations: SALTY PRESCOTT ([id number])[facility] [place] (SBHL[facility])[address] Platelets (Bld) [#/Vol] 129 10*3/uL Low 140-440 [facility] Comment on above: Performed By: #### L [id number], [id number] ####Representative Government Relations: SALTY PRESCOTT ([id number])[facility] [place] ([employer])[address] RBC (Bld) [#/Vol] 5.08 10*6/uL Normal 4.40-5.90 [facility] Comment on above: Performed By: #### L [id number], [id number] ####Representative Government Relations: SALTY PRESCOTT ([id number])[facility] [place] (SB[facility])[address] [place] [address] [place] WBC (Bld) [#/Vol] 5.9 10*3/uL Normal 3.6-10.7 [facility] Comment on above: Performed By: #### L [id number], [id number] ####Representative Government Relations: SALTY PRESCOTT ([id number])[facility] [place] (SB[facility])[address] COMPREHENSIVE METABOLIC PANE Eduardo 02-08-2024 Albumin [Mass/Vol] 3.3 g/dL Low 3.5-5.0 [facility] Comment on above: Performed By: #### L AB17, [id number], LAB46 ####Representative Government Relations: SALTY PRESCOTT ([phone])[facility] [place] (SB[facility])[address] ALP [Catalytic activity/Vol] 191 U/L High 38-126 [facility] Comment on above: Performed By: #### Abdelrahman AB17, [id number], LAB46 ####Representative Government Relations: SALTY PRESCOTT ([id number])[facility] [place] (SB[facility])[address] ALT [Catalytic activity/Vol] 15 U/L Normal 0-49 [facility] Comment on above: Performed By: #### L AB17, [id number], LAB46 ####Representative Government Relations: SALTY PRESCOTT ([id number])[facility] [place] (SB[facility])[address] Anion gap [Moles/Vol] 11 mmol/L Normal 3-13 [facility] Comment on above: Performed By: #### L AB17, [id number], LAB46 ####Representative Government Relations: SALTY PRESCOTT ([id number])[facility] [place] (SBHL[facility])[address] [place] [address] [place] AST [Catalytic activity/Vol] 44 U/L Normal 15-46 [facility] Comment on above: Performed By: #### L AB17, [id number], LAB46 ####Representative Government Relations: SALTY PRESCOTT ([phone])[facility] [place] (SBHL[facility])[address] Bilirubin [Mass/Vol] 0.6 mg/dL Normal 0.2-1.3 [facility] Comment on above: Performed By: #### Abdelrahman AB17, [id number], LAB46 ####Representative Government Relations: SALTY PRESCOTT ([id number])[facility] CENTERMain [facility]SDAL[facility]racie (SBHLAB)[address] Calcium [Mass/Vol] 7.9 mg/dL Low 8.4-10.4 [facility] Comment on above: Performed By: #### L AB17, [id number], LAB46 ####Representative Government Relations: SALTY PRESCOTT ([id number])[facility]ENTERMain [facility]SDALETracie (SBHLAB)[address] Chloride [Moles/Vol] 98 mmol/L Normal 98-107 [facility] Comment on above: Performed By: #### Abdelrahman MEEKS, [id number], LAB46 ####Representative Government Relations: SALTY PRESCOTT ([phone])[facility]ENTERMain [facility] SC[facility]SDALETracie (SBHLAB)[address] CO2 [Moles/Vol] 31 mmol/L High 22-30 [facility] Comment on above: Performed By: #### L AB17, [id number], LAB46 ####Representative Government Relations: SALTY PRESCOTT ([id number])[facility]ITAL[facility] ([facility])[address] Creatinine [Mass/Vol] 0.46 mg/dL Low 0.66-1.25 [facility] Comment on above: Performed By: #### L AB17, [id number], LAB46 ####Representative Government Relations: SALTY PRESCOTT ([id number])[facility] (SBHLAB)[address] GLOMERULAR FILTRATION RATE ML/MIN/1.73 SQ M.PREDICTED >90.0 Normal >60.0 [facility] Comment on above: Result Comment: Calc ulation based on the Chronic Kidney Disease Epidemiology Collaboration (CKD-EPI) equation refit without adjustment for race Performed By: #### L AB17, [id number], LAB46 ####Representative Government Relations: SALTY CERVANTESCER ([id number])[facility] CENTERMain [facility]ENTERTracie (SBHLAB)[address] Glucose [Mass/Vol] 100 mg/dL Normal 70-100 [facility] Comment on above: Performed By: #### L AB17, [id number], LAB46 ####Representative Government Relations: SALTY PRESCOTT ([phone])[facility]ENTERMain [facility] (SBHLAB)[address] Potassium [Moles/Vol] 2.8 mmol/L Low 3.5-5.1 [facility] Comment on above: Performed By: #### Abdelrahman AB17, [id number], LAB46 ####Representative Government Relations: SALTY TRUJILLOKENTONMICHAEL ([phone])[facility] (SB[facility])[address] Protein [Mass/Vol] 7.0 g/dL Normal 6.3-8.2 [facility] Comment on above: Performed By: #### Abdelrahman AB17, [id number], LAB46 ####Representative Government Relations: SALTY PRESCOTT ([phone])[facility] CENTERMain [place] (HLAB)[address] Sodium [Moles/Vol] 141 mmol/L Normal 135-145 [facility] Comment on above: Performed By: #### Abdelrahman MEEKS, [id number], LAB46 ####Representative Government Relations: SALTY PRESCOTT ([phone])[facility] CENTERMain [place] (SBHLAB)[address] [place] [address] [place] Urea nitrogen [Mass/Vol] 7 mg/dL Low 9-20 [facility] Comment on above: Performed By: #### L AB17, [id number], LAB46 ####Representative Government Relations: SALTY PRESCOTT ([phone])[facility] (SB[facility])[address] ABDOMEN PELVIS WO IV CONT RASTon 02-08-2024 CT ABDOMEN PELVIS WO IV CONTRAST Normal [facility] CT Abdomen WO contraston 1. There are small bilateral renal calculi without hydronephrosis, unchanged since last exam 11 days ago. 2. Bulging discs last two levels with mild anterior wedging L1 unchanged, enlarged common bile duct unchanged, small probable right lobe hepatic cyst unchanged. Report Dictated on Electronically Signed By: Fransisco Martin MD Electronically Signed Date/Time: 02/08/2024 5:53 AM EDT [facility] Patient Name: EL SMITH : 1980 Exam Date/Time: 02/08/2024 05:40 Procedure: CT ABDOMEN PELVIS WO IV CONTRAST Ordering Provider: BLUM MICHAEL Reason For Exam: Flank pain, kidney stone suspected Reasons for examination: abdomen and flank pain. Axial unenhanced scans of the abdomen and pelvis were performed without contrast, with images from the lung bases through the pubic symphysis. Dose reduction was employed with automated exposure control. Comparison study 01/28/2024. The right kidney is normal in size and shape. There are no mass lesions. There is no hydronephrosis. There are renal calculi. Along the length of the right ureter, no calculi are encountered. The left kidney is normal in size and shape. There are no mass lesions. There is no hydronephrosis. There are renal calculi. Along the length of the left ureter, no calculi are encountered. The liver, spleen, and pancreas appear normal. The gallbladder and biliary tree are normal. The bowel and mesentery are unremarkable. There is no free fluid or free air. There is no adenopathy. Scans through the pelvis demonstrate the bladder to be normal. There are no masses or adenopathy. The spine is remarkable for bulging discs last two levels, mild anterior wedging L1 unchanged. [facility] Fransisco Martin MD - 02/08/2024 Patient Name: EL SMITH : 1980 Exam Date/Time: 02/08/2024 05:40 Procedure: CT ABDOMEN PELVIS WO IV CONTRAST Ordering Provider: BLUM MICHAEL Reason For Exam: Flank pain, kidney stone suspected Reasons for examination: abdomen and flank pain. Axial unenhanced scans of the abdomen and pelvis were performed without contrast, with images from the lung bases through the pubic symphysis. Dose reduction was employed with automated exposure control. Comparison study 01/28/2024. The right kidney is normal in size and shape. There are no mass lesions. There is no hydronephrosis. There are renal calculi. Along the length of the right ureter, no calculi are encountered. The left kidney is normal in size and shape. There are no mass lesions. There is no hydronephrosis. There are renal calculi. Along the length of the left ureter, no calculi are encountered. The liver, spleen, and pancreas appear normal. The gallbladder and biliary tree are normal. The bowel and mesentery are unremarkable. There is no free fluid or free air. There is no adenopathy. Scans through the pelvis demonstrate the bladder to be normal. There are no masses or adenopathy. The spine is remarkable for bulging discs last two levels, mild anterior wedging L1 unchanged. IMPRESSION: 1. There are small bilateral renal calculi without hydronephrosis, unchanged since last exam 11 days ago. 2. Bulging discs last two levels with mild anterior wedging L1 unchanged, enlarged common bile duct unchanged, small probable right lobe hepatic cyst unchanged. Report Dictated on Electronically Signed By: Fransisco Martin MD Electronically Signed Date/Time: 02/08/2024 5:53 AM EDT [facility] [employer] Radiology Study observation (narrative) [facility] alth CT Abdomen WO contrastOrdere d By: Fransisco Martin on 02-08-2024 [facility] [employer] Work Phone: Comprehensive metabolic 1998 panelon 02-08-2024 Albumin [Mass/Vol] 3.3 g/dL Low 3.5 - 5.0 g/dL [facility] [employer] ALP [Catalytic activity/Vol] 191 U/L High 38 - 126 U/L [facility] [employer] ALT [Catalytic activity/Vol] 15 U/L 0 - 49 U/L [facility] [employer] Anion gap [Moles/Vol] 11 mmol/L 3 - 13 mmol/L [facility] [employer] AST [Catalytic activity/Vol] 44 U/L 15 - 46 U/L [facility] Bilirubin [Mass/Vol] 0.6 mg/dL 0.2 - 1 .3 mg/dL [facility] Calcium [Mass/Vol] 7.9 mg/dL Low 8.4 - 10. 4 mg/dL [facility] Chloride [Moles/Vol] 98 mmol/L 98 - 10 7 mmol/L [facility] CO2 [Moles/Vol] 31 mmol/L High 22 - 30 mmol/L [facility] Creatinine [Mass/Vol] 0.46 mg/dL Low 0.66 - 1.25 mg/dL [facility] GFR/1.73 sq M.predicted (S/P/Bld) [Vol rate/Area] - PINF [facility] Comment on above: Calculation based on the Chronic Kidney Disease Epidemiology Collaboration (CKD-EPI) equation refit without adjustment for race Glucose [Mass/Vol] 100 mg/dL 70 - 100 mg/dL [facility] Interpretation and review of laboratory results Abnormal [facility] Potassium [Moles/Vol] 2.8 mmol/L Low 3.5 - 5.1 mmol/L [facility] Protein [Mass/Vol] 7 g/dL 6.3 - 8.2 g/dL [facility] Sodium [Moles/Vol] 141 mmol/L 135 - 145 mmol/L [facility] Urea nitrogen [Mass/Vol] 7 mg/dL Low 9 - 20 mg/dL [facility] ECG 12-LEADon 02-08-2024 ECG 12-LEAD IMPRESSION: Sinus tachycardia Borderline prolonged QT interval Electronically Signed On 02-08-2024 10:32:43 EDT by Betsy Munoz Normal [facility] ED Nursing Noteon 02-08-2024 ED Nursing Note Normal [facility] ED Provider Noteon ED Provider Note Normal [facility] ETHANOLon 02-08-2024 ETHANOL IN SER/PLAS 0.325 g/dL Critically high 0.000-0.010 [facility] Comment on above: Result Comment: PAGE Menezes COMMENTS:NOTE: This result is for medical treatment only. Analysis performed using non-forensic procedures. Performed By: #### L [id number], [id number], [id number] ####Representative Government Relations: SALTY PRESCOTT ([phone])[facility]ENTER[facility] [place] ([facility])[address] Ethanol (Bld) [Mass/Vol]Orde red By: Erlin Quintana on 02-08-2024 Ethanol [Mass/Vol] 0.325 g/dL Critically high 0.000 - 0.010 g/dL [facility] Interpretation and review of laboratory results Abnormal [facility] Laboratory - Chemistry and C hemistry - challengeon 02-08-2024 Magnesium [Mass/Vol] 1.2 mg/dL Low 1.6 - 2 .3 mg/dL [facility] Laboratory - Hematology and Cell countson 02-08-2024 Anisocytosis Ql (Bld) Rare Abnormal (none) [facility] Dacrocytes LM Ql (Bld) Rare Abnormal (none) [facility] Hypochromia Ql (Bld) Rare Abnormal (none) [facility] Lymphocytes (Bld) [#/Vol] 0.1 10*3/uL Low 1.0 - 4.3 10*3/uL [facility] Lymphocytes/100 WBC (Bld) 2 % Low 15 - 45 % [facility] Monocytes (Bld) [#/Vol] 0.3 10*3/uL 0.0 - 0.9 10*3/uL [facility] Monocytes/100 WBC (Bld) 5 % 5 - 13 % [facility] Neutrophils (Bld) [#/Vol] 5.4 10*3/uL 1.8 - 7.5 10*3/uL [facility] Ovalocytes LM Ql (Bld) Rare Abnormal (none) [facility] Poikilocytosis LM Ql (Bld) Slight Abnormal (none) [facility] RBC morphology finding Nom (Bld) abnormal [facility] Segmented neutrophils/100 WBC (Bld) 92 % High 38 - 82 % [facility] Stomatocytes LM Ql (Bld) Rare Abnormal (none) [facility] Target cells LM Ql (Bld) Rare Abnormal (none) [facility] Variant lymphocytes (Bld) [#/Vol] 0.1 10*3/uL High NINF - 0.0 10*3/uL [facility] Variant lymphocytes/100 WBC (Bld) 1 % High NINF - 0 % [facility] MAGNESIUMon 02-08-2024 Magnesium [Mass/Vol] 1.2 mg/dL Low 1.6-2.3 [facility] Comment on above: Performed By: #### L [id number], [id number], [id number] ####Representative Government Relations: SALTY BAUTISTAMICHAEL ([phone])[facility] [place] ([facility])[address] MANUAL DIFFERENTIAL (CELLAVI LEONELA)on 02-08-2024 ANISOCYTOSIS PRESENCE IN BLOOD BY LIGHT MICROSCOPY Rare Abnormal (none) [facility] Comment on above: Performed By: #### L [id number], [id number] ####Representative Government Relations: SALTY TRUJILLOMAY ([phone])[facility] [place] ([place])[address] BAND NEUTROPHILS TOTAL PER COUNTED LEUKOCYTES BY MANUAL COUNT Normal [facility] Comment on above: Performed By: #### L [id number], [id number] ####Representative Government Relations: SALTY TRUJILLOMAY ([phone])[facility] [place] ([place])[address] BASOPHILS TOTAL PER COUNTED LEUKOCYTES BY MANUAL COUNT Normal [facility] Comment on above: Performed By: #### L [id number], [id number] ####Representative Government Relations: SALTY TRUJILLOMAY ([phone])[facility] [place] ([facility])[address] BLASTS TOTAL PER COUNTED LEUKOCYTES BY MANUAL COUNT Normal [facility] Comment on above: Performed By: #### L [id number], [id number] ####Representative Government Relations: SALTY TRUJILLOMAY ([phone])[facility] [place] ([place])[address] [place] [address] [place] DACROCYTES PRESENCE IN BLOOD BY LIGHT MICROSCOPY Rare Abnormal (none) [facility] Comment on above: Performed By: #### L [id number], [id number] ####Representative Government Relations: SALTY BAUTISTAMICHAEL ([phone])[facility] [place] ([facility])[address] EOSINOPHILS TOTAL PER COUNTED LEUKOCYTES BY MANUAL COUNT Normal [facility] Comment on above: Performed By: #### L [id number], [id number] ####Representative Government Relations: SALTY CERVANTESCER ([phone])[facility] [place] ([facility])[address] HYPOCHROMIA (PRESENCE) IN BLOOD BY LIGHT MICROSCOPY Rare Abnormal (none) [facility] Comment on above: Performed By: #### L [id number], [id number] ####Representative Government Relations: SALTY CERVANTESCER ([phone])[facility] [place] ([facility])[address] LYMPHOCYTE VARIANT/100 LEUKOCYTES IN BLOOD- CELLAVISION 1 % High <=0 [facility] Comment on above: Performed By: #### L [id number], [id number] ####Representative Government Relations: SALTY TRUJILLOMAY ([phone])[facility] [place] ([facility])[address] [place] [address] [place] LYMPHOCYTES (10*3/UL) IN BLOOD-CELLAVISION 0.1 10*3/uL Low 1.0-4.3 [facility] Comment on above: Performed By: #### L [id number], [id number] ####Representative Government Relations: SALTY PRESCOTT ([phone])[facility] [place] ([place])[address] [place] [address] [place] LYMPHOCYTES TOTAL PER COUNTED LEUKOCYTES BY MANUAL COUNT 2 Normal [facility] Comment on above: Performed By: #### L [id number], [id number] ####Representative Government Relations: SALTY BAUTISTAMICHAEL ([phone])[facility] [place] ([facility])[address] [place] [address] [place] LYMPHOCYTES/100 LEUKOCYTES IN BLOOD-CELLAVISION 2 % Low 15-45 [facility] Comment on above: Performed By: #### L [id number], [id number] ####Representative Government Relations: SALTY BAUTISTAMICHAEL ([phone])[facility] [place] ([facility])[address] [place] [address] [place] METAMYELOCYTES TOTAL PER COUNTED LEUKOCYTES BY MANUAL COUNT Normal [facility] Comment on above: Performed By: #### L [id number], [id number] ####Representative Government Relations: SALTY PRESCOTT ([phone])[facility] [place] ([facility])[address] [place] [address] [place] MONOCYTES (10*3/UL) IN BLOOD-CELLAVISION 0.3 10*3/uL Normal 0.0-0.9 [facility] Comment on above: Performed By: #### L [id number], [id number] ####Representative Government Relations: SALTY PRESCOTT ([phone])[facility] [place] ([facility])[address] MONOCYTES TOTAL PER COUNTED LEUKOCYTES BY MANUAL COUNT 5 Normal [facility] Comment on above: Performed By: #### L [id number], [id number] ####Representative Government Relations: SALTY PRESCOTT ([id number])[facility] [place] ([facility])[address] [place] [address] [place] MONOCYTES/100 LEUKOCYTES IN BLOOD-ИВАН 5 % Normal 5-13 [facility] Comment on above: Performed By: #### L [id number], [id number] ####Representative Government Relations: SALTY PRESCOTT ([phone])[facility] [place] ([place])[address] MYELOCYTES COUNTED BY MANUAL COUNT Normal [facility] Comment on above: Performed By: #### L [id number], [id number] ####Representative Government Relations: SALTY PRESCOTT ([phone])[facility] [place] ([facility])[address] NEUTROPHILS TOTAL PER COUNTED LEUKOCYTES BY MANUAL COUNT 92 Normal [facility] Comment on above: Performed By: #### L [id number], [id number] ####Representative Government Relations: SALTY PRESCOTT ([phone])[facility] [place] ([facility])[address] OVALOCYTES PRESENCE IN BLOOD BY LIGHT MICROSCOPY Rare Abnormal (none) [facility] Comment on above: Performed By: #### L [id number], [id number] ####Representative Government Relations: SALTY PRESCOTT ([id number])[facility] [place] ([facility])[address] [place] [address] [place] POIKILOCYTOSIS (PRESENCE) IN BLOOD BY LIGHT MICROSCOPY Slight Abnormal (none) [facility] Comment on above: Performed By: #### L [id number], [id number] ####Representative Government Relations: SALTY PRESCOTT ([phone])[facility] [place] ([facility])[address] [place] [address] [place] PROMYELOCYTES TOTAL PER COUNTED LEUKOCYTES BY MANUAL COUNT Normal [facility] Comment on above: Performed By: #### L [id number], [id number] ####Representative Government Relations: SALTY PRESCOTT ([phone])[facility] ([facility])[address] [place] [address] [place] RBC MORPHOLOGY IN BLOOD abnormal Normal [facility] Comment on above: Performed By: #### L [id number], [id number] ####Representative Government Relations: SALTY BAUTISTAMICHAEL ([phone])[facility] [place] ([facility])[address] [place] [address] [place] SEGMENTED NEUTROPHILS (10*3/UL) IN BLOOD-CELLAVISION 5.4 10*3/uL Normal 1.8-7.5 [facility] Comment on above: Performed By: #### L [id number], [id number] ####Representative Government Relations: SALTY PRESCOTT ([phone])[facility] [place] ([facility])[address] [place] [address] [place] SEGMENTED NEUTROPHILS/100 LEUKOCYTES-CE 92 % High 38-82 [facility] Comment on above: Performed By: #### L [id number], [id number] ####Representative Government Relations: SALTY PRESCOTT ([phone])[facility] [place] ([facility])[address] [place] [address] [place] STOMATOCYTES IN BLOOD BY LIGHT MICROSCOPY Rare Abnormal (none) [facility] Comment on above: Performed By: #### L [id number], [id number] ####Representative Government Relations: SALTY PRESCOTT ([id number])[facility] [place] ([facility])[address] TARGET CELLS IN BLOOD BY LIGHT MICROSCOPY Rare Abnormal (none) [facility] Comment on above: Performed By: #### L [id number], [id number] ####Representative Government Relations: SALTY PRESCOTT ([phone])[facility] [place] ([facility])[address] UNCLASSIFIED CELLS TOTAL PER COUNTED LEUKOCYTES BY MANUAL COUNT Normal [facility] Comment on above: Performed By: #### L [id number], [id number] ####Representative Government Relations: SALTY PRESCOTT ([phone])[facility] [place] ([facility])[address] VARIANT LYMPHOCYTES (10*3/UL) IN BLOOD-CELLAVISION 0.1 10*3/uL High <=0.0 [facility] Comment on above: Performed By: #### L [id number], [id number] ####Representative Government Relations: SALTY PRESCOTT ([phone])[facility] [place] ([facility])[address] VARIANT LYMPHOCYTES TOTAL PER COUNTED LEUKOCYTES BY MANUAL COUNT 1 Normal [facility] Comment on above: Performed By: #### L [id number], [id number] ####Representative Government Relations: SALTY PRESCOTT ([phone])[facility] [place] ([facility])[address] [place] [address] [place] Magnesium [Mass/Vol]on 02-07 Interpretation and review of laboratory results Abnormal [facility] [employer] No Panel InformationOrdered By: Betsy Munoz on 02-08-2024 P [place] 39 degrees [facility] [employer] Work Phone: MI Interval 139 ms [facility] [employer] Work Phone: QRS [place] 54 degrees [facility] [employer] Work Phone: QRSD Interval 102 ms [facility] [employer] Work Phone: QT Interval 375 ms [facility] [employer] Work Phone: QTC Interval 498 ms [facility] [employer] Work Phone: T Wave [place] 54 degrees [employer] Work Phone: [employer] Work Phone: No Panel Informationon 02-07 Sinus tachycardia Borderline prolonged QT interval Electronically Signed On 02-08-2024 10:32:43 EDT by Betsy Munoz Betsy Sebastian MD - 02/08/2024 IMPRESSION: Sinus tachycardia Borderline prolonged QT interval Electronically Signed On 02-08-2024 10:32:43 EDT by Betsy Munoz [facility] [employer] Atypical Lymphocytes Manual 1 [facility] Bands Manual [facility] Basophils Manual [facility] Blasts Manual [facility] Eosinophils Manual [facility] Interpretation and review of laboratory results Abnormal [facility] Lymphocytes Manual 2 [facility] Metamyelocytes Manual [facility] Monocytes Manual 5 [facility] Myelocytes Manual [facility] Neutrophils Manual 92 [facility] Promyelocytes Manual [facility] Unclassified Cells, Manual [facility] Vital signsOrdered By: Omid Munoz on 02-08-2024 Heart rate 106 /min bpm [facility] [employer] Work Phone: CBC W Auto Differential pane l (Bld)Ordered By: Salina Calvo on 01-28-2024 Basophils (Bld) [#/Vol] 0.1 10*3/uL 0.0 - 0.2 10*3/uL [facility] Basophils/100 WBC (Bld) 1.1 % 0.0 - 2.0 % [facility] Eosinophils (Bld) [#/Vol] 0.0 10*3/uL 0.0 - 0.5 10*3/uL [facility] Eosinophils/100 WBC (Bld) 0.1 % 0.0 - 6.0 % [facility] Erythrocyte distribution width (RBC) [Ratio] 16.3 % High 11.5 - 15.0 % [facility] Hematocrit (Bld) [Volume fraction] 37.5 % Low 40.0 - 52.0 % [facility] Hemoglobin (Bld) [Mass/Vol] 11.8 g/dL Low 13.0 - 18.0 g/dL [facility] Immature granulocytes (Bld) [#/Vol] 0.0 10*3/uL NINF - 0.1 10*3/uL [facility] Immature granulocytes/100 WBC (Bld) 0.1 % 0.0 - 2.0 % [facility] Interpretation and review of laboratory results Abnormal [facility] Lymphocytes (Bld) [#/Vol] 2.3 10*3/uL 1.0 - 4.3 10*3/uL [facility] Lymphocytes/100 WBC (Bld) 31.1 % 15.0 - 45.0 % [facility] MCH (RBC) [Entitic mass] 22.8 pg Low 26.0 - 34.0 pg [facility] MCHC (RBC) [Mass/Vol] 31.5 % 30.5 - 36.0 % [facility] MCV (RBC) [Entitic vol] 72.4 fL Low 77.0 - 99.0 fL [facility] Monocytes (Bld) [#/Vol] 0.8 10*3/uL 0.0 - 0.9 10*3/uL [facility] Monocytes/100 WBC (Bld) 11.2 % 5.0 - 13.0 % [facility] Neutrophils (Bld) [#/Vol] 4.1 10*3/uL 1.8 - 7.5 10*3/uL [facility] Neutrophils/100 WBC (Bld) 56.4 % 38.0 - 82.0 % [facility] Nucleated RBC/100 WBC (Bld) [Ratio] 0.0 % [facility] Platelet mean volume (Bld) [Entitic vol] 8.9 fL Low 9.0 - 12.7 fL [facility] Comment on above: MPV is a calculated measurement using platelet volume ratio Platelets (Bld) [#/Vol] 285 10*3/uL 140 - 440 10*3/uL [facility] RBC (Bld) [#/Vol] 5.18 10*6/uL 4.40 - 5.9 0 10*6/uL [facility] WBC (Bld) [#/Vol] 7.2 10*3/uL 3.6 - 10.7 10*3/uL [facility] CBC WITH AUTO DIFFERENTIALon 01-28-2024 Basophils (Bld) [#/Vol] 0.1 10*3/uL Normal 0.0-0.2 [facility] Comment on above: Performed By: #### L [id number] ####Representative Government Relations: JACK ORTIZ ([phone])DEANDRE [place]ORES [place] ([facility])[address] [place] [address] [place] Basophils/100 WBC (Bld) 1.1 % Normal 0.0-2.0 [facility] Comment on above: Performed By: #### L [id number] ####Representative Government Relations: JACK ORTIZ ([phone])DEANDRE [place] ([place])[address] [place] [address] Eosinophils (Bld) [#/Vol] 0.0 10*3/uL Normal 0.0-0.5 [facility] Comment on above: Performed By: #### L [id number] ####Representative Government Relations: JACK ORTIZ ([phone])DEANDRE [place] ([place])[address] [place] [address] [place] Eosinophils/100 WBC (Bld) 0.1 % Normal 0.0-6.0 [facility] Comment on above: Performed By: #### L [id number] ####Representative Government Relations: JACK ORTIZ ([phone])DEANDRE [place] ([place])[address] [place] [address] Erythrocyte distribution width (RBC) [Ratio] 16.3 % High 11.5-15.0 [facility] Comment on above: Performed By: #### L [id number] ####Representative Government Relations: JACK ORTIZ ([phone])DEANDRE [place] ([place])[address] Hematocrit (Bld) [Volume fraction] 37.5 % Low 40.0-52.0 [facility] Comment on above: Performed By: #### L [id number] ####Representative Government Relations: JACK ORTIZ ([id number])DEANDRE [place] ([place])[address] [place] [address] Hemoglobin (Bld) [Mass/Vol] 11.8 g/dL Low 13.0-18.0 [facility] Comment on above: Performed By: #### L [id number] ####Representative Government Relations: JACK ORTIZ ([phone])[facility]ENTERMain TREJOSANDRA [place] ([place])[address] [place] [address] IMMATURE GRANS % 0.1 % Normal 0.0-2.0 [facility] Comment on above: Performed By: #### L [id number] ####Representative Government Relations: JACK ORTIZ ([phone])[facility] FLORES [place] ([place])[address] [place] [address] IMMATURE GRANS ABSOLUTE 0.0 10*3/uL Normal <0.1 [facility] Comment on above: Performed By: #### L [id number] ####Representative Government Relations: JACK ORTIZ ([phone])[facility] [place]ORES [place] ([place])[address] [place] [address] Lymphocytes (Bld) [#/Vol] 2.3 10*3/uL Normal 1.0-4.3 [facility] Comment on above: Performed By: #### L [id number] ####Representative Government Relations: JACK ORTIZ ([phone])[facility] [place] ([place])[address] [place] [address] Lymphocytes/100 WBC (Bld) 31.1 % Normal 15.0-45.0 [facility] Comment on above: Performed By: #### L [id number] ####Representative Government Relations: JACK ORTIZ ([phone])[facility] [place] ([place])[address] [place] [address] MCH (RBC) [Entitic mass] 22.8 pg Low 26.0-34.0 [facility] Comment on above: Performed By: #### L [id number] ####Representative Government Relations: JACK ORTIZ ([phone])[facility] SANDRA [place] ([place])[address] [place] [address] [place] MCHC 31.5 % Normal 30.5-36.0 [facility] Comment on above: Performed By: #### L [id number] ####Representative Government Relations: JACK ORTIZ ([phone])DEANDRE [place]ES [place] ([place])[address] [place], [place] [address] MCV (RBC) [Entitic vol] 72.4 fL Low 77.0-99.0 S [facility] Comment on above: Performed By: #### L [id number] ####Representative Government Relations: JACK ORTIZ ([phone])DEANDRE FLROES RITTMAN (SWRLAB)[address] [place] [address] Monocytes (Bld) [#/Vol] 0.8 10*3/uL Normal 0.0-0.9 [facility] Comment on above: Performed By: #### L [id number] ####Representative Government Relations: JACK ORTIZ ([phone])DEANDRE FLORES R[place]TM[place] (SWRLAB)[address] [place] [address] [place] Monocytes/100 WBC (Bld) 11.2 % Normal 5.0-13.0 S [facility] Comment on above: Performed By: #### L [id number] ####Representative Government Relations: JACK ORTIZ ([phone])DEANDRE FLORES [place] (SWRLAB)[address] [place] [address] [place] NEUTROPHILS ABSOLUTE 4.1 10*3/uL Normal 1.8-7.5 [facility] Comment on above: Performed By: #### L [id number] ####Representative Government Relations: JACK ORTIZ ([phone])DEANDRE FLORES [place] (SWRLAB)[address] [place] [address] [place] Neutrophils/100 WBC (Bld) 56.4 % Normal 38.0-82.0 [facility] Comment on above: Performed By: #### L [id number] ####Representative Government Relations: JACK ORTIZ ([phone])[facility] FLORES [place] (SWRLAB)[address] [place] [address] [place] NRBC 0.0 /100 WBCs Normal 0.0-2.0 [facility] Comment on above: Performed By: #### L [id number] ####Representative Government Relations: JACK ORTIZ ([phone])[facility] [place] (SWRLAB)[address] [place] [address] Platelet mean volume (Bld) [Entitic vol] 8.9 fL Low 9.0-12.7 [facility] Comment on above: Result Comment: MPV is a calculated measurement using platelet volume ratio Performed By: #### L [id number] ####Representative Government Relations: JACK ORTIZ ([phone])[facility] [place] (SWRLAB)[address] [place] [address] [place] Platelets (Bld) [#/Vol] 285 10*3/uL Normal 140-440 [facility] Comment on above: Performed By: #### L [id number] ####Representative Government Relations: JACK ORTIZ ([phone])[facility] [place] (SWRLAB)[address] [place] [address] [place] RBC (Bld) [#/Vol] 5.18 10*6/uL Normal 4.40-5.90 [facility] Comment on above: Performed By: #### L [id number] ####Representative Government Relations: JACK ORTIZ ([phone])[facility] [place] (SWRLAB)[address] [place] [address] [place] WBC (Bld) [#/Vol] 7.2 10*3/uL Normal 3.6-10.7 [facility] Comment on above: Performed By: #### L [id number] ####Representative Government Relations: JACK ORTIZ ([phone])[facility] [place] (SWRLAB)[address] COMPREHENSIVE METABOLIC PANE Eduardo 01-28-2024 Albumin [Mass/Vol] 3.8 g/dL Normal 3.5-5.0 [facility] Comment on above: Performed By: #### Abdelrahman MOSES17, LAB99 ####Representative Government Relations: JACK ORTIZ ([phone])[facility] [place] (SWRLAB)[address] ALP [Catalytic activity/Vol] 160 U/L High 38-126 [facility] Comment on above: Performed By: #### Abdelrahman AB17, LAB99 ####Representative Government Relations: JACK ORTIZ ([phone])[facility] [place] (SWRLAB)[address] ALT [Catalytic activity/Vol] 26 U/L Normal 0-49 [facility] Comment on above: Performed By: #### Abdelrahman MOSES17, LAB99 ####Representative Government Relations: JACK ORTIZ ([phone])[facility] [place] (SWRLAB)[address] Anion gap [Moles/Vol] 12 mmol/L Normal 3-13 [facility] Comment on above: Performed By: #### Abdelrahman MEEKS, LAB99 ####Representative Government Relations: JACK ORTIZ ([phone])[facility] [place] (SWRLAB)[address] [place] [address] [place] AST [Catalytic activity/Vol] 76 U/L High 15-46 [facility] Comment on above: Performed By: #### Abdelrahman MOSES17, LAB99 ####Representative Government Relations: JACK ORTIZ ([phone])[facility]Main [place] (SWRLAB)[address] [place] [address] [place] Bilirubin [Mass/Vol] 0.6 mg/dL Normal 0.2-1.3 [facility] Comment on above: Performed By: #### L AB17, LAB99 ####Representative Government Relations: JACK ORTIZ ([phone])[facility] [place] (SWRLAB)[address] [place] [address] [place] Calcium [Mass/Vol] 8.6 mg/dL Normal 8.4-10.4 [facility] Comment on above: Performed By: #### L AB17, LAB99 ####Representative Government Relations: JACK ORTIZ ([phone])DEANDRE [place] (SWRLAB)[address] [place] [address] [place] Chloride [Moles/Vol] 95 mmol/L Low 98-107 [facility] Comment on above: Performed By: #### Abdelrahman AB17, LAB99 ####Representative Government Relations: JACK ORTIZ ([phone])[facility] [place] (SWRLAB)[address] [place] [address] [place] CO2 [Moles/Vol] 35 mmol/L High 22-30 [facility] Comment on above: Performed By: #### Abdelrahman MOSES17, LAB99 ####Representative Government Relations: JACK ORTIZ ([phone])[facility]Main [place] (SWRLAB)[address] [place] [address] Creatinine [Mass/Vol] 0.62 mg/dL Low 0.66-1.25 [facility] Comment on above: Performed By: #### Abdelrahman MOSES17, LAB99 ####Representative Government Relations: JACK OTRIZ ([phone])[facility]ENTERMain [place] (SWRLAB)[address] [place] [address] GLOMERULAR FILTRATION RATE ML/MIN/1.73 SQ M.PREDICTED >90.0 Normal >60.0 [facility] Comment on above: Result Comment: Calc ulation based on the Chronic Kidney Disease Epidemiology Collaboration (CKD-EPI) equation refit without adjustment for race Performed By: #### L AB17, LAB99 ####Representative Government Relations: JACK ORTIZ ([phone])[facility]Main [place] (SWRLAB)[address] [place] [address] [place] Glucose [Mass/Vol] 98 mg/dL Normal 70-100 [facility] Comment on above: Performed By: #### L AB17, LAB99 ####Representative Government Relations: JACK ORTIZ ([phone])[facility] [place] (SWRLAB)[address] [place] [address] [place] Potassium [Moles/Vol] 2.9 mmol/L Low 3.5-5.1 [facility] Comment on above: Performed By: #### L AB17, LAB99 ####Representative Government Relations: JACK ORTIZ ([phone])[facility] [place] (SWRL[place])[address] Protein [Mass/Vol] 8.2 g/dL Normal 6.3-8.2 [facility] Comment on above: Performed By: #### L AB17, LAB99 ####Representative Government Relations: JACK ORTIZ ([phone])[facility]ENTERMain [place] (SWRL[place])[address] Sodium [Moles/Vol] 142 mmol/L Normal 135-145 [facility] Comment on above: Performed By: #### L AB17, LAB99 ####Representative Government Relations: JACK ORTIZ ([phone])[facility]Main [place] (SWRLAB)[address] [place] [address] Urea nitrogen [Mass/Vol] 8 mg/dL Low 9-20 [facility] Comment on above: Performed By: #### L AB17, LAB99 ####Representative Government Relations: JACK ORTIZ ([phone])[facility]ENTERMain [place] (SWRLAB)[address] [place] [address] CT ABDOMEN PELVIS WO IV CONT RASTon 01-28-2024 CT ABDOMEN PELVIS WO IV CONTRAST Normal [facility] CT Abdomen WO contraston 1. Bilateral nephrolithiasis. No significant hydronephrosis. 2. Common bile duct dilatation without apparent cholelithiasis or choledocholithiasis. Correlation with ultrasound right upper quadrant may help in further evaluation, and follow-up suggested. 3. Probable hepatic and right renal cysts. 4. Mild anterior wedging L1 vertebral body, new in the interval, but age-indeterminate. Correlate clinically. Report Dictated on Electronically Signed By: Tk Trinh MD Electronically Signed Date/Time: 01/28/2024 11:50 PM EDT [facility] [employer] Patient Name: EL SMITH : 1980 Exam Date/Time: 01/28/2024 23:23 Procedure: CT ABDOMEN PELVIS WO IV CONTRAST Ordering Provider: DIOR JAY Reason For Exam: b/l flank pain, RUQ pain CT ABDOMEN AND PELVIS WITHOUT CONTRAST CLINICAL INDICATION: b/l flank pain, RUQ pain TECHNIQUE: CT scan of the abdomen and pelvis, without IV contrast. Multiplanar reformations. Dose reduction was employed with automated exposure control. COMPARISON: March,. FINDINGS: Abdomen: Solid organ evaluation limited due to lack of IV contrast. Visualized lung bases grossly unremarkable. No radiopaque gallstones. Common bile duct dilated measuring approximately 11 mm proximally and tapering distally. No apparent common bile duct stone identified. Multiple, small calcifications again scattered in the bilateral kidneys, right greater than left, largest measuring approximately 3-4 mm in the right kidney. No significant hydronephrosis or abnormal perinephric fluid collection. Smaller partially exophytic isodense focus of right renal upper pole cortex posteriorly corresponding to previously noted cyst, about the same in size. Multiple, subcentimeter hypodensities again scattered in the liver, too small to adequately characterize, but statistically suggesting cysts or hemangiomas. Remainder of abdominal parenchyma grossly unremarkable. Pelvis: No apparent calcifications or significant dilatation in the distal ureters. Bowel grossly unremarkable. Probable appendix partially visualized and grossly unremarkable. No significant, free peritoneal fluid or loculated fluid collection. Abdominal aorta is nonaneurysmal. Mild anterior wedging in the L1 vertebral body, new from comparison. [facility] Tk Trinh MD - 01/28/2024 Patient Name: EL SMITH : 1980 Exam Date/Time: 01/28/2024 23:23 Procedure: CT ABDOMEN PELVIS WO IV CONTRAST Ordering Provider: DIOR JAY Reason For Exam: b/l flank pain, RUQ pain CT ABDOMEN AND PELVIS WITHOUT CONTRAST CLINICAL INDICATION: b/l flank pain, RUQ pain TECHNIQUE: CT scan of the abdomen and pelvis, without IV contrast. Multiplanar reformations. Dose reduction was employed with automated exposure control. COMPARISON: March,. FINDINGS: Abdomen: Solid organ evaluation limited due to lack of IV contrast. Visualized lung bases grossly unremarkable. No radiopaque gallstones. Common bile duct dilated measuring approximately 11 mm proximally and tapering distally. No apparent common bile duct stone identified. Multiple, small calcifications again scattered in the bilateral kidneys, right greater than left, largest measuring approximately 3-4 mm in the right kidney. No significant hydronephrosis or abnormal perinephric fluid collection. Smaller partially exophytic isodense focus of right renal upper pole cortex posteriorly corresponding to previously noted cyst, about the same in size. Multiple, subcentimeter hypodensities again scattered in the liver, too small to adequately characterize, but statistically suggesting cysts or hemangiomas. Remainder of abdominal parenchyma grossly unremarkable. Pelvis: No apparent calcifications or significant dilatation in the distal ureters. Bowel grossly unremarkable. Probable appendix partially visualized and grossly unremarkable. No significant, free peritoneal fluid or loculated fluid collection. Abdominal aorta is nonaneurysmal. Mild anterior wedging in the L1 vertebral body, new from comparison. IMPRESSION: 1. Bilateral nephrolithiasis. No significant hydronephrosis. 2. Common bile duct dilatation without apparent cholelithiasis or choledocholithiasis. Correlation with ultrasound right upper quadrant may help in further evaluation, and follow-up suggested. 3. Probable hepatic and right renal cysts. 4. Mild anterior wedging L1 vertebral body, new in the interval, but age-indeterminate. Correlate clinically. Report Dictated on Electronically Signed By: Tk Trinh MD Electronically Signed Date/Time: 01/28/2024 11:50 PM EDT [facility] Radiology Study observation (narrative) [facility] Comprehensive metabolic 1998 panelon 01-28-2024 Albumin [Mass/Vol] 3.8 g/dL 3.5 - 5.0 g/dL [facility] ALP [Catalytic activity/Vol] 160 U/L High 38 - 126 U/L [facility] ALT [Catalytic activity/Vol] 26 U/L 0 - 49 U/L [facility] Anion gap [Moles/Vol] 12 mmol/L 3 - 13 mmol/L [facility] AST [Catalytic activity/Vol] 76 U/L High 15 - 46 U/L [facility] Bilirubin [Mass/Vol] 0.6 mg/dL 0.2 - 1 .3 mg/dL [facility] Calcium [Mass/Vol] 8.6 mg/dL 8.4 - 10. 4 mg/dL [facility] Chloride [Moles/Vol] 95 mmol/L Low 98 - 10 7 mmol/L [facility] CO2 [Moles/Vol] 35 mmol/L High 22 - 30 mmol/L [facility] Creatinine [Mass/Vol] 0.62 mg/dL Low 0.66 - 1.25 mg/dL [facility] GFR/1.73 sq M.predicted (S/P/Bld) [Vol rate/Area] - PINF [facility] Comment on above: Calculation based on the Chronic Kidney Disease Epidemiology Collaboration (CKD-EPI) equation refit without adjustment for race Glucose [Mass/Vol] 98 mg/dL 70 - 100 mg/dL [facility] Potassium [Moles/Vol] 2.9 mmol/L Low 3.5 - 5.1 mmol/L [facility] Protein [Mass/Vol] 8.2 g/dL 6.3 - 8.2 g/dL [facility] Sodium [Moles/Vol] 142 mmol/L 135 - 145 mmol/L [facility] Urea nitrogen [Mass/Vol] 8 mg/dL Low 9 - 20 mg/dL [facility] ED Nursing Noteon 01-28-2024 ED Nursing Note Normal [facility] ED Provider Noteon ED Provider Note Normal [facility] LIPASEon 01-28-2024 Lipase [Catalytic activity/Vol] 537 U/L High 23-300 [facility] Comment on above: Performed By: #### L AB17, LAB99 ####Representative Government Relations: JACK ORTIZ ([phone])[facility] SANDRA GUEVARA (SWRLAB)[address] [place] [address] Laboratory - Chemistry and C hemistry - challengeon 01-28-2024 Lipase [Catalytic activity/Vol] 537 U/L High 23 - 300 U/L [facility] No Panel Informationon 01-27 Interpretation and review of laboratory results Abnormal [facility] XR Chest Single viewon 01-27 1. Nodular opacities x3 projecting over right inferolateral lung, new in the interval. Correlation with noncontrast CT chest may help in further evaluation, and follow-up suggested. 2. No acute consolidation. Report Dictated on Electronically Signed By: Tk Trinh MD Electronically Signed Date/Time: 01/28/2024 11:29 PM EDT [facility] Patient Name: EL SMITH : 1980 Exam Date/Time: 01/28/2024 23:22 Procedure: XR CHEST 1 VIEW Ordering Provider: DIOR JAY Reason For Exam: cough, shortness of breath CHEST PORTABLE CLINICAL INDICATION: cough, shortness of breath TECHNIQUE: Portable chest x-ray(s). COMPARISON: April,. FINDINGS: Cardiac and mediastinal silhouette within normal limits. Lungs show nodular opacities x3 projecting over the right mid-lower and lateral lung, largest measuring approximately 2.4 cm, new from comparison. No significant vascular congestion. No focal consolidation or apparent pneumothorax. Bony thorax grossly unremarkable. [facility] Tk Trinh MD - 01/28/2024 Patient Name: EL SMITH : 1980 Exam Date/Time: 01/28/2024 23:22 Procedure: XR CHEST 1 VIEW Ordering Provider: DIOR JAY Reason For Exam: cough, shortness of breath CHEST PORTABLE CLINICAL INDICATION: cough, shortness of breath TECHNIQUE: Portable chest x-ray(s). COMPARISON: April,. FINDINGS: Cardiac and mediastinal silhouette within normal limits. Lungs show nodular opacities x3 projecting over the right mid-lower and lateral lung, largest measuring approximately 2.4 cm, new from comparison. No significant vascular congestion. No focal consolidation or apparent pneumothorax. Bony thorax grossly unremarkable. IMPRESSION: 1. Nodular opacities x3 projecting over right inferolateral lung, new in the interval. Correlation with noncontrast CT chest may help in further evaluation, and follow-up suggested. 2. No acute consolidation. Report Dictated on Electronically Signed By: Tk Trinh MD Electronically Signed Date/Time: 01/28/2024 11:29 PM EDT [facility] Radiology Study observation (narrative) [facility] XR Chest Single viewOrdered By: Tk Trinh on 01-28-2024 [employer] Work Phone: [employer] HEALTHon 01-06-2024 [employer] HNO ID: [id number] Author: HAI ALSTON RT(R) Service: Radiology Author Type: Technologist Type: [employer] [facility] Filed: 01/06/2024 06:53 Note Text: Radiology Service Progress Note DATE OF SERVICE: January 06, 2024 TIME: 6:53 AM PATIENT IDENTITY VERIFICATION COMPLETED USING TWO (2) STANDARD IDENTIFIERS: Name and Date of confirmed by patient verbally and Name and Date of confirmed by identification band. FALL SCREENING: Has the patient had 2 falls in the last year or 1 fall with injury or currently using an Ambulatory Assistive Device (Walker, Cane, Wheelchair, Crutches, etc.)? Emergency Room Patient: Screened in ED PATIENT GENDER DATA: Male PATIENT RELEVANT IMPLANT DATA REVIEWED: Not Applicable PATIENT PRESENTS WITH AN IMPLANTABLE OR ATTACHED GAMBLING BOX PERSON: No ALLERGIES: Reviewed and unchanged CONTRAST ALLERGY: NO. EXAM: CT -CONTRAST INDUCED NEPHROPATHY RISK FACTORS: Not applicable CREATININE: Creatinine Date Value Ref Range Status 01/06/2024 0.56 (L) 0.73 - 1.22 mg/dL Final 06/19/2020 0.71 (L) 0.73 - 1.22 mg/dL Final 05/06/2020 0.79 0.73 - 1.22 mg/dL Final Estimated Glomerular Filtration Rate Date Value Ref Range Status 01/06/2024 126 >=60 mL/min/1.73m? Final Comment: Estimated Glomerular Filtration Rate (eGFR) is calculated using the 2020 CKD-EPI creatinine equation. This equation utilizes serum creatinine, sex, and age as parameters. The creatinine assay has traceable calibration to isotope dilution-mass spectrometry. Refer to KDIGO guidelines for clinical interpretation. In patients with unstable renal function, e.g. those with acute kidney injury, the eGFR may not accurately reflect actual GFR. eGFR- Date Value Ref Range Status 06/19/2020 >60 Final P.O.C.T. RESULTS: POC done: Yes, See Lab Tab January 06, 2024 TREATMENT: N/A PERIPHERAL IV DATA: Inpatient - refer to LDA documentation RADIOLOGY DEPARTMENT: CT; Exam(s) Completed: PE Study SIGNATURE: Hai Alston, RT(R) PATIENT NAME: El Smith DATE: January 06, 2024 TIME: 6:53 AM Normal [facility] CBC W Auto Differential pane l (Bld)on 01-06-2024 Basophils (Bld) [#/Vol] 0.05 10*3/uL Normal <0.11 [facility] Comment on above: Order Comment: Speci men Type: BLOOD SPECIMEN Ordering Facility: [facility] Address: [address] [place] [address] Performed By: #### 5 7021-8 #### [facility] CLIA [id number] [address] [place] Basophils/100 WBC (Bld) 0.6 % Normal [facility] Comment on above: Order Comment: Speci men Type: BLOOD SPECIMEN Ordering Facility: [facility] Address: [address] [place] [address] Performed By: #### 5 7021-8 #### [facility] CLIA [id number] [address] Differential cell count method Nom (Bld) Auto Normal [facility] Comment on above: Order Comment: Speci men Type: BLOOD SPECIMEN Ordering Facility: [facility] Address: [address] [place] [address] Performed By: #### 5 7021-8 #### [facility] CLIA [id number] [address] [place] [address] [place] Eosinophils (Bld) [#/Vol] 0.03 10*3/uL Normal <0.46 [facility] Comment on above: Order Comment: Speci men Type: BLOOD SPECIMEN Ordering Facility: [facility] Address: [address] [place] [address] Performed By: #### 5 7021-8 #### [facility] CLIA [id number] [address] [place] [address] [place] Eosinophils/100 WBC (Bld) 0.4 % Normal [facility] Comment on above: Order Comment: Speci men Type: BLOOD SPECIMEN Ordering Facility: [facility] Address: [address] [place] [address] Performed By: #### 5 7021-8 #### [facility] CLIA [id number] [address] [place] Erythrocyte distribution width (RBC) [Ratio] 16.7 % High 11.5-15.0 [facility] Comment on above: Order Comment: Speci men Type: BLOOD SPECIMEN Ordering Facility: [facility] Address: [address] [place] [address] Performed By: #### 5 7021-8 #### [facility] CLIA [id number] [address] [place] Hematocrit (Bld) [Volume fraction] 33.7 % Low 39.0-51.0 [facility] Comment on above: Order Comment: Speci men Type: BLOOD SPECIMEN Ordering Facility: [facility] Address: [address] [place] [address] Performed By: #### 5 7021-8 #### [facility] CLIA [id number] [address] [place] Hemoglobin (Bld) [Mass/Vol] 10.3 g/dL Low 13.0-17.0 [facility] Comment on above: Order Comment: Speci men Type: BLOOD SPECIMEN Ordering Facility: [facility] Address: [address] [place] [address] Performed By: #### 5 7021-8 #### [facility] CLIA [id number] [address] Immature granulocytes (Bld) [#/Vol] 0.03 10*3/uL Normal <0.10 [facility] Comment on above: Order Comment: Speci men Type: BLOOD SPECIMEN Ordering Facility: [facility] Address: [address] [place] [address] Performed By: #### 5 7021-8 #### [facility] CLIA [id number] [address] Immature granulocytes/100 WBC (Bld) 0.4 % Normal [facility] Comment on above: Order Comment: Speci men Type: BLOOD SPECIMEN Ordering Facility: [facility] Address: [address] [place] [address] Performed By: #### 5 7021-8 #### [facility] CLIA [id number] [address] Lymphocytes (Bld) [#/Vol] 0.88 10*3/uL Low 1.00-4.00 [facility] Comment on above: Order Comment: Speci men Type: BLOOD SPECIMEN Ordering Facility: [facility] Address: [address] [place] [address] Performed By: #### 5 7021-8 #### [facility] CLIA [id number] [address] Lymphocytes/100 WBC (Bld) 10.4 % Normal [facility] Comment on above: Order Comment: Speci men Type: BLOOD SPECIMEN Ordering Facility: [facility] Address: [address] [place] [address] Performed By: #### 5 7021-8 #### [facility] CLIA [id number] [address] [place] [facility] MCH (RBC) [Entitic mass] 24.0 pg Low 26.0-34.0 [facility] Comment on above: Order Comment: Speci men Type: BLOOD SPECIMEN Ordering Facility: [facility] Address: [address] [place] [address] Performed By: #### 5 7021-8 #### [facility] CLIA [id number] [address] MCHC (RBC) [Mass/Vol] 30.6 g/dL Normal 30.5-36.0 [facility] Comment on above: Order Comment: Speci men Type: BLOOD SPECIMEN Ordering Facility: [facility] Address: [address] [place] [address] Performed By: #### 5 7021-8 #### [facility] CLIA [id number] [address] [place] [address] [place] MCV (RBC) [Entitic vol] 78.6 fL Low 80.0-100.0 M [facility] Comment on above: Order Comment: Speci men Type: BLOOD SPECIMEN Ordering Facility: [facility] Address: [address] [place] [address] Performed By: #### 5 7021-8 #### [facility] CLIA [id number] [address] [place] [address] [place] Monocytes (Bld) [#/Vol] 0.56 10*3/uL Normal <0.87 [facility] Comment on above: Order Comment: Speci men Type: BLOOD SPECIMEN Ordering Facility: [facility] Address: [address] [place] [address] Performed By: #### 5 7021-8 #### [facility] CLIA [id number] [address] [place] Monocytes/100 WBC (Bld) 6.6 % Normal [facility] Comment on above: Order Comment: Speci men Type: BLOOD SPECIMEN Ordering Facility: [facility] Address: [address] [place] [address] Performed By: #### 5 7021-8 #### [facility] CLIA [id number] [address] [place] Neutrophils (Bld) [#/Vol] 6.90 10*3/uL Normal 1.45-7.50 [facility] Comment on above: Order Comment: Speci men Type: BLOOD SPECIMEN Ordering Facility: [facility] Address: [address] [place] [address] Performed By: #### 5 7021-8 #### [facility] CLIA [id number] [address] [place] Neutrophils/100 WBC (Bld) 81.6 % Normal [facility] Comment on above: Order Comment: Speci men Type: BLOOD SPECIMEN Ordering Facility: [facility] Address: [address] [place] [address] Performed By: #### 5 7021-8 #### [facility] CLIA [id number] [address] [place] [address] [place] [facility] [place] Nucleated RBC (Bld) [#/Vol] 10*3/uL Normal <0.01 [facility] Comment on above: Order Comment: Speci men Type: BLOOD SPECIMEN Ordering Facility: [facility] Address: [address] [place] [address] Performed By: #### 5 7021-8 #### [facility] CLIA [id number] [address] [place] [address] [place] Nucleated RBC/100 WBC (Bld) [Ratio] 0.0 /100 WBC Normal [facility] Comment on above: Order Comment: Speci men Type: BLOOD SPECIMEN Ordering Facility: [facility] Address: [address] [place] [address] Performed By: #### 5 7021-8 #### [facility] CLIA [id number] [address] [place] [address] [place] Platelet mean volume (Bld) [Entitic vol] 8.6 fL Low 9.0-12.7 [facility] Comment on above: Order Comment: Speci men Type: BLOOD SPECIMEN Ordering Facility: [facility] Address: [address] [place] [address] Performed By: #### 5 7021-8 #### [facility] CLIA [id number] [address] [place] Platelets (Bld) [#/Vol] 353 10*3/uL Normal 150-400 [facility] Comment on above: Order Comment: Speci men Type: BLOOD SPECIMEN Ordering Facility: [facility] Address: [address] [place] [address] Performed By: #### 5 7021-8 #### [facility] CLIA [id number] [address] [place] [address] [place] RBC (Bld) [#/Vol] 4.29 10*6/uL Normal 4.20-6.00 [facility] Comment on above: Order Comment: Speci men Type: BLOOD SPECIMEN Ordering Facility: [facility] Address: [address] [place] [address] Performed By: #### 5 7021-8 #### [facility] CLIA [id number] [address] [place] [address] [place] WBC (Bld) [#/Vol] 8.45 10*3/uL Normal 3.70-11.00 [facility] Comment on above: Order Comment: Speci men Type: BLOOD SPECIMEN Ordering Facility: [facility] Address: [facility] [place] [address] Performed By: #### 5 7021-8 #### [facility] CLIA [id number] [address] [place] [address] [place] CT CHEST W IVCON PEon 2023 CT CHEST W IVCON PE * * *Final Report* * * DATE OF EXAM: Jan 06 2024 6:55AM [facility] [place] - CT CHEST W IVCON PE / PROCEDURE REASON: Pulmonary embolism (PE) suspected, high prob * * * * Physician Interpretation * * * * EXAMINATION: CHEST CT WITH CONTRAST (PULMONARY EMBOLISM PROTOCOL) PATIENT/TECHNOLOGIST PROVIDED HISTORY: Patient fell on Tuesday and hit chest on a table, was painful on right side of chest now radiated to left side of chest. Per spouse has a nasty cough. CLINICAL HISTORY: 43 years old Male with Pulmonary embolism (PE) suspected, high prob. Technique: Spiral CT acquisition of the chest from the thoracic inlet to the upper abdomen following IV contrast. Axial 1 and 3 mm thick slices plus coronal and sagittal reformatted images. MQ: CTCP_5 Contrast: 80 mL Omnipaque [address] Radiation dose: Integrated Dose-length product (DLP) for this visit = 392.43 mGy*cm CT Dose Reduction Employed: Automated exposure control(AEC) and iterative recon Comparison: CT abdomen pelvis 06/19/2020 RESULT: Limitations: None. Evaluation for thromboembolic disease: - Right heart chambers: No thromboembolic disease. - Main pulmonary arteries: No thromboembolic disease. - Lobar pulmonary arteries: No thromboembolic disease. - Segmental pulmonary arteries: No thromboembolic disease. - Subsegmental pulmonary arteries: No thromboembolic disease. - Additional pulmonary artery findings: The main pulmonary artery is normal in caliber. Lines, tubes, and devices: None. Lung parenchyma and airways: Central airways are patent. Mild paraseptal emphysema and mild diffuse bronchial wall thickening due to airways inflammation. Multifocal patchy groundglass opacities throughout both lungs suggestive of atypical/viral pneumonia. No confluent consolidation. No suspicious pulmonary nodule. Pleural space: No pleural effusion, pleural thickening or pneumothorax. Lower neck, lymph nodes, and mediastinum: Image thyroid gland is normal. 1.1 cm in short axis LEFT lower paratracheal node (2:107) and 1.2 cm in short axis RIGHT hilar node (2:122) are nonspecific and probably reactive. Otherwise, no mediastinal or hilar lymphadenopathy. No supraclavicular or axillary lymphadenopathy. Heart, pericardium, and thoracic vessels: The thoracic aorta is normal in caliber. The cardiac chambers are normal in size. Multifocal coronary artery atherosclerotic calcifications are noted, although the study is not optimized for coronary assessment. No pericardial effusion or thickening. Bones and soft tissues: Acute RIGHT anterior 2nd and 3rd rib fractures. Subacute RIGHT anterior 4th-6th rib fractures with callus formation. Remote healed RIGHT posterior 12th rib fracture, RIGHT anterior 10th rib fracture, and LEFT 5th-7th rib fractures. Remote healed manubrial fracture. Subacute appearing RIGHT L1 transverse process fracture with callus formation. Chronic T4 superior endplate compression deformity with associated Schmorl's node. Chronic mild anterior L1 wedge deformity. Endplate degenerative changes in the thoracic spine. Endplate Schmorl's nodes. Upper abdomen: Subcentimeter hypoattenuating lesions in the liver which are too small to characterize but appear grossly unchanged since CT abdomen pelvis 06/19/2020 and likely benign. Hepatic steatosis. CBD dilation appears unchanged compared to CT 06/19/2020. Nonobstructing bilateral nephrolithiasis. 1.5 cm above fluid attenuating renal lesion posterior RIGHT upper pole is unchanged in size compared to CT 06/19/2020. Localizer images: No additional findings. IMPRESSION: No CT evidence of pulmonary embolism. Multifocal patchy groundglass opacities throughout both lungs suggestive of atypical/viral pneumonia. Mild emphysema with bronchial wall thickening due to airways inflammation. Acute RIGHT anterior 2nd and 3rd rib fractures. Multiple additional remote and subacute healing fractures as described. Motion Designer: SELINA Transcribe Date/Time: Jan 06 2024 7:33A Dictated by : RON NG DO This examination was interpreted and the report reviewed and electronically signed by: RON NG DO on Jan 06 2024 7:55AM EST [id number] Normal [facility] Comprehensive metabolic 2000 panelon 01-06-2024 Albumin [Mass/Vol] 3.2 g/dL Low 3.9-4.9 [facility] Comment on above: Order Comment: Speci men Type: BLOOD SPECIMENOrdering Facility: [facility] Address: [address] [place] [address] Performed By: #### 2 4323-8, [id number] ####[facility] [id number] [place] [address] [place] ALP [Catalytic activity/Vol] 146 U/L High 38-113 [facility] Comment on above: Order Comment: Speci men Type: BLOOD SPECIMENOrdering Facility: [facility] Address: [address] [place] [address] Performed By: #### 2 4323-8, [id number] ####[facility] [id number] [address] [place] ALT [Catalytic activity/Vol] 29 U/L Normal 10-54 [facility] Comment on above: Order Comment: Speci men Type: BLOOD SPECIMENOrdering Facility: [facility] Address: [address] [place] [address] Performed By: #### 2 4323-8, [id number] ####[facility] [id number] [address] Anion gap [Moles/Vol] 13 mmol/L Normal 8-15 [facility] Comment on above: Order Comment: Speci men Type: BLOOD SPECIMENOrdering Facility: [facility] Address: [address] [place] [address] Performed By: #### 2 4323-8, [id number] ####[facility] [id number] [place] [address] [place] AST [Catalytic activity/Vol] 46 U/L High 14-40 [facility] Comment on above: Order Comment: Speci men Type: BLOOD SPECIMENOrdering Facility: [facility] Address: [address] [place] [address] Performed By: #### 2 4323-8, [id number] ####[facility] [id number] [place] [address] [place] Bilirubin [Mass/Vol] 0.3 mg/dL Normal 0.2-1.3 [facility] Comment on above: Order Comment: Speci men Type: BLOOD SPECIMENOrdering Facility: [facility] Address: [address] [place] [address] Performed By: #### 2 4323-8, [id number] ####[facility] [id number] [place] [address] [place] Calcium [Mass/Vol] 8.2 mg/dL Low 8.5-10.2 [facility] Comment on above: Order Comment: Speci men Type: BLOOD SPECIMENOrdering Facility: [facility] Address: [address] [place] [address] Performed By: #### 2 4323-8, [id number] ####[facility] [id number] [place] [address] [place] Chloride [Moles/Vol] 99 mmol/L Normal 98-107 [facility] Comment on above: Order Comment: Speci men Type: BLOOD SPECIMENOrdering Facility: [facility] Address: [address] [place] [address] Performed By: #### 2 4323-8, [id number] ####[facility] [id number] [place] [address] [place] CO2 [Moles/Vol] 29 mmol/L Normal 22-30 [facility] Comment on above: Order Comment: Speci men Type: BLOOD SPECIMENOrdering Facility: [facility] Address: [address] [place] [address] Performed By: #### 2 4323-8, [id number] ####[facility] [id number] [place] [address] [place] Creatinine [Mass/Vol] 0.56 mg/dL Low 0.73-1.22 [facility] Comment on above: Order Comment: Speci men Type: BLOOD SPECIMENOrdering Facility: [facility] Address: [address] [place] [address] Performed By: #### 2 4323-8, [id number] ####[facility] [id number] [place] [address] [place] Creatinine and Glomerular filtration rate.predicted panel (S/P/Bld) 126 mL/min/1.73m??? Normal >=60 [facility] Comment on above: Order Comment: Gio moreno Type: BLOOD SPECIMENOrdering Facility: [facility] Address: [address] [place] [address] Result Comment: Alejandra mated Glomerular Filtration Rate (eGFR) is calculated using the 2020 CKD-EPI creatinine equation. This equation utilizes serum creatinine, sex, and age as parameters. The creatinine assay has traceable calibration to isotope dilution-mass spectrometry. Refer to KDIGO guidelines for clinical interpretation. In patients with unstable renal function, e.g. those with acute kidney injury, the eGFR may not accurately reflect actual GFR. Performed By: #### 2 4323-8, [id number] ####[facility] [id number] [place] [address] [place] Glucose [Mass/Vol] 79 mg/dL Normal 74-99 [facility] Comment on above: Order Comment: Gio moerno Type: BLOOD SPECIMENOrdering Facility: [facility] Address: [address] [place] [address] Result Comment: The [place] [employer] (ADA) provides guidance for cutoff values for fasting glucose and random glucose. The ADA defines fasting as no caloric intake for at least 8 hours. Fasting plasma glucose results between 100 to 125 mg/dL indicate increased risk for diabetes (prediabetes). Fasting plasma glucose results greater than or equal to 126 mg/dL meet the criteria for diagnosis of diabetes. In the absence of unequivocal hyperglycemia, results should be confirmed by repeat testing. In a patient with classic symptoms of hyperglycemia or hyperglycemic crisis, random plasma glucose results greater than or equal to 200 mg/dL meet the criteria for diagnosis of diabetes. Reference: Standards of Medical Care in Diabetes 2016, [place] [employer]. Diabetes Care. 2016.39(Suppl 1). Performed By: #### 2 4323-8, [id number] ####[facility] [id number] [place] [id number] [place] Potassium [Moles/Vol] 3.7 mmol/L Normal 3.7-5.1 [facility] Comment on above: Order Comment: Speci men Type: BLOOD SPECIMENOrdering Facility: [facility] Address: [address] [place] [address] Performed By: #### 2 4323-8, [id number] ####[facility] [id number] [place] [address] [place] Protein [Mass/Vol] 7.0 g/dL Normal 6.3-8.0 [facility] Comment on above: Order Comment: Speci men Type: BLOOD SPECIMENOrdering Facility: [facility] Address: [address] [place] [address] Performed By: #### 2 4323-8, [id number] ####[facility] [id number] [address] [place] Sodium [Moles/Vol] 141 mmol/L Normal 136-144 [facility] Comment on above: Order Comment: Speci men Type: BLOOD SPECIMENOrdering Facility: [facility] Address: [address] [place] [address] Performed By: #### 2 4323-8, [id number] ####[facility] [id number] [place] [address] [place] Urea nitrogen [Mass/Vol] 9 mg/dL Normal 9-24 [facility] Comment on above: Order Comment: Speci men Type: BLOOD SPECIMENOrdering Facility: [facility] Address: [address] [place] [address] Performed By: #### 2 4323-8, [id number] ####[facility] [id number] [place] [address] [place] D dimer FEU PPP-mCncon 01-05 Fibrin D-dimer FEU (PPP) [Mass/Vol] 1750 ng/mL FEU High <500 [facility] Comment on above: Order Comment: Speci men Type: BLOOD SPECIMENOrdering Facility: [facility] Address: [address] [place] [address] Performed By: #### 3 4528-0, 74965-6, 55077-8 ####[facility] [id number] [place] [address] [facility] ECG COMPLETEon 01-06-2024 ECG COMPLETE Ventricular Rate : 9 0 BPM Atrial Rate : 90 BPM P-R Interval : 130 ms QRS Duration : 108 ms Q-T Interval : 398 ms QTC Calculation(Bazett) : 486 ms Calculated P [place] : 52 degrees Calculated R [place] : 47 degrees Calculated T [place] : 61 degrees NORMAL SINUS RHYTHM MINIMAL VOLTAGE CRITERIA FOR LVH, MAY BE NORMAL VARIANT ( Sokolow-Short ) PROLONGED QT ABNORMAL ECG Confirmed by MD LEIJA ALEXANDER ([id number]), assignment desk editor ANDRES JOHNSON ([id number]) on 01/06/2024 7:23:05 AM NAME : EL SMITH PID : [id number] : 1980 Gender : Male Race : ORD : [id number] Procedure Date : Jan 06 2024 05:09:04 Edit Date : Jan 06 2024 07:23:08 Diagnosis: NORMAL SINUS RHYTHM MINIMAL VOLTAGE CRITERIA FOR LVH, MAY BE NORMAL VARIANT ( Sokolow-Short ) PROLONGED QT ABNORMAL ECG Confirmed by MD LEIJA ALEXANDER ([id number]), assignment desk editor ANDRES JOHNSON ([id number]) on 01/06/2024 7:23:05 AM Test Reason : Chest Pain Location : 1 : ER ED Overread By : MD LEIJA ALEXANDER Edited By : ANDRES JOHNSON Referred By : , Acquired by : trent rn, [facility] ED NOTEon 01-06-2024 ED NOTE HNO ID: [id number] Author: BOBBY ENRIQUEZ RN Service: Nursing Author Type: Registered Nurse Type: ED Notes Filed: 01/06/2024 08:58 Note Text: Patient wanting to go home. He is aware of discharge instructions, follow up care with PCP, medications to take at home for pain and his antibiotic that was sent to his pharmacy. Female family member at and will drive him home. Thankful for care. [facility] ED NOTE HNO ID: [id number] Author: BOBBY ENRIQUEZ RN Service: Nursing Author Type: Registered Nurse Type: ED Notes Filed: 01/06/2024 08:37 Note Text: Ambulated with pulse ox. Patient able to tolerate well, pulse ox 93-95% on RA, Patient has incentive spirometry at home, will use at home. Family back at bs and will be able to drive him home. [facility] ED NOTE HNO ID: [id number] Author: BOBBY ENRIQUEZ RN Service: Nursing Author Type: Registered Nurse Type: ED Notes Filed: 01/06/2024 08:29 Note Text: Will ambulate with pulse ox per MD request. [facility] ED NOTE HNO ID: [id number] Author: BOBBY ENRIQUEZ, DESIREE Service: Nursing Author Type: Registered Nurse Type: ED Notes Filed: 01/06/2024 07:16 Note Text: Rec'd report and assumed care of patient. [facility] ED PROV NOTEon 01-06-2024 ED PROV NOTE HNO ID: [id number] Author: GENO DIEGO DO Service: Emergency Medicine Author Type: Physician Type: ED Provider Notes Filed: 01/06/2024 13:06 Note Text: ED CONTINUATION OF CARE NOTE Code Status: Full Code Assumed care from: Cale Presentation / Findings / Interventions / Plan / Items to Follow Up: The patient presented to the ED and was endorsed to me after fall having some right-sided chest pain, CT imaging showed evidence of 2 rib fractures on his right side, also showed evidence of viral pneumonia he does have a history of smoking, he is saturating well on room air ambulating, given incentive spirometer antibiotics and strict return precautions. Patient discharged from the Emergency Department. I do not feel that the patient's evaluation reveals any acute reason for admission at this time. I instructed them to either follow up with their primary care physician or promptly return to the Emergency Department for reevaluation should symptoms worsen or new symptoms develop. I explained what symptoms would indicate the need to return to the Emergency Department. Shared decision making was used. The patient voiced understanding of the treatment plan and is agreeable with it. Clinical Impressions as of 01/06/24 1306 Chest pain, unspecified type Hypoxia Nicotine use disorder Alcohol use Marijuana abuse Closed fracture of multiple ribs of right side, initial encounter Medical Decision Making SIGNATURE: Geno Diego DO PATIENT NAME: El Smith DATE: January 06, 2024 TIME: 8:49 AM PAGER/CONTACT #: GENO DIEGO 01/06/24 1306 [facility] ED PROV NOTE HNO ID: [id number] Author: MARAL LEIJA MD Service: ? Author Type: Physician Type: ED Provider Notes Filed: 01/06/2024 07:01 Note Text: ED Provider Note Patient Name: El Smith : 1980 SERVICE DATE: 01/06/24 History Patient presents with: Chest Pain: Patient fell on Tuesday and hit chest on a table, was painful on right side of chest now radiated to left side of chest. Per spouse has a nasty cough History provided by: Patient pharmaceutical representative used: No Chest Pain Pain location: L chest and R chest Pain quality: aching Pain radiates to: Does not radiate Pain severity: Moderate Onset quality: Sudden Timing: Constant Progression: Unchanged Chronicity: New Context: breathing and trauma Relieved by: Nothing Worsened by: Nothing Ineffective treatments: None tried Associated symptoms: anxiety Associated symptoms: no abdominal pain, no nausea, no shortness of breath and no vomiting Risk factors: coronary artery disease PAST MEDICAL HISTORY Diagnosis Date - Alcohol use - Anxiety - Lumbar dysfunction - Marijuana use - Tobacco use PAST SURGICAL HISTORY Procedure Laterality Date - PAST SURGICAL HISTORY OF wisdom teeth removed - PAST SURGICAL HISTORY OF right hand surgery - WRIST SURGERY HX Left FAMILY HISTORY Problem Relation Age of Onset - Arthritis Mother psoriatic - Diabetes Father Social History Tobacco Use - Smoking status: Every Day Current packs/day: 2.00 Average packs/day: 2.0 packs/day for 20.0 years (40.0 ttl pk-yrs) Types: Cigarettes - Smokeless tobacco: Never Vaping Use - Vaping status: Never Used Substance and Sexual Activity - Alcohol use: Yes Alcohol/week: 36.0 standard drinks of alcohol Types: 18 Cans of Beer (12oz), 18 Shots of liquor per week Comment: social - Drug use: Yes Frequency: 1.0 times per week Types: Marijuana Comment: 3.5 grams per weekend - Sexual activity: Not on file ALLERGIES Allergen Reactions - Nickel Rash - Other Rash Metals- rash-- Nickel Review of Systems Respiratory: Negative for shortness of breath. Cardiovascular: Positive for chest pain. Gastrointestinal: Negative for abdominal pain, nausea and vomiting. Physical Exam Vitals [01/06/24 0505] BP Pulse Temp Temp src Resp SpO2 Weight Height 128/83 (!) 95 36.7 ?C (98.1 ?F) Oral 18 95 % 73.5 kg (162 lb) 1.778 m (5' 10) Physical Exam Vitals and nursing note reviewed. Constitutional: Appearance: He is well-developed. HENT: Right Ear: External ear normal. Left Ear: External ear normal. Nose: Nose normal. Eyes: General: Lids are normal. Lids are everted, no foreign bodies appreciated. Conjunctiva/sclera: Conjunctivae normal. Neck: Trachea: Trachea normal. Cardiovascular: Rate and Rhythm: Normal rate and regular rhythm. Heart sounds: Normal heart sounds. Pulmonary: Effort: Pulmonary effort is normal. Breath sounds: Normal breath sounds. Abdominal: General: Bowel sounds are normal. There is no distension. Palpations: Abdomen is soft. Musculoskeletal: General: Normal range of motion. Right shoulder: Normal. Left shoulder: Normal. Cervical back: No deformity. Thoracic back: No deformity. Right ankle: Normal. Left ankle: Normal. Skin: General: Skin is warm and dry. Neurological: Mental Status: He is alert and oriented to person, place, and time. GCS: GCS eye subscore is 4. GCS verbal subscore is 5. GCS motor subscore is 6. Cranial Nerves: No cranial nerve deficit. Sensory: No sensory deficit. Deep Tendon Reflexes: Reflexes are normal and symmetric. Psychiatric: Attention and Perception: Attention and perception normal. Diagnostic Testing ED Labs Ordered and Reviewed COMPLETE BLOOD COUNT AND DIFFERENTIAL - Abnormal; Notable for the following components: Result Value Ref Range Hemoglobin 10.3 (*) 13.0 - 17.0 g/dL Hematocrit 33.7 (*) 39.0 - 51.0 % MCV 78.6 (*) 80.0 - 100.0 fL MCH 24.0 (*) 26.0 - 34.0 pg RDW-CV 16.7 (*) 11.5 - 15.0 % MPV 8.6 (*) 9.0 - 12.7 fL Abs Lymph 0.88 (*) 1.00 - 4.00 k/uL All other components within normal limits COMPREHENSIVE METABOLIC PANEL - Abnormal; Notable for the following components: Albumin 3.2 (*) 3.9 - 4.9 g/dL Calcium, Total 8.2 (*) 8.5 - 10.2 mg/dL Alkaline Phosphatase 146 (*) 38 - 113 U/L AST 46 (*) 14 - 40 U/L Creatinine 0.56 (*) 0.73 - 1.22 mg/dL All other components within normal limits ACTIVATED PARTIAL THROMBOPLASTIN TIME - Abnormal; Notable for the following components: APTT 39.3 (*) 23.0 - 32.4 sec All other components within normal limits Narrative: Unfractionated Heparin Therapeutic Ranges: Standard Heparin Nomogram: 53 to 78 seconds (anti-Xa level of 0.3 to 0.7 U/ml) Low Dose/ACS Nomogram: 49 to 67 seconds (anti-Xa level of 0.2 to 0.5 U/ml) Stroke Treatment Nomogram: 49 to 67 seconds (anti-Xa level of 0.2 to 0.5 U/ml) Note: The APTT therapeutic range nuñez (more content not included)... Normal [facility] HIGH SENSITIVITY TROPONIN T (INITIAL)on 01-06-2024 Troponin T.cardiac High sensitivity method [Mass/Vol] 9 ng/L Normal <12 [facility] Comment on above: Order Comment: Gio moreno Type: BLOOD SPECIMENOrdering Facility: [facility] Address: [address] [place] [address] Performed By: #### 2 4323-8, [id number] ####[facility] LABORATORYCLIA [id number] [address] STATES OF [facility] HIGH SENSITIVITY TROPONIN T (SECOND)on 01-06-2024 Troponin T.cardiac High sensitivity method [Mass/Vol] 7 ng/L Normal <12 [facility] Comment on above: Order Comment: Gio moreno Type: BLOOD SPECIMENOrdering Facility: [facility] Address: [address] [place] [address] Performed By: #### L [id number] ####AL[facility] LABORATORYCLIA [id number] [place] [address] [place] PT panel Coag (PPP)on 2023 INR Coag (PPP) [Relative time] 1.0 {INR} Normal 0.9-1.3 [facility] Comment on above: Order Comment: Gio moreno Type: BLOOD SPECIMEN [facility] Address: [address] [place], [place] [id number] Result Comment: Shobha min K Antagonist (VKA) Therapeutic Range: INR 2 to 3 (Target INR of 2.5) Note: For patients treated with VKA drugs, such as warfarin, the [employer] [employer] 2012 Guideline recommends a therapeutic INR range of 2 to 3 (target INR of 2.5). This recommendation includes high-risk patients with antiphospholipid syndrome with previous arterial or venous thromboembolism, current-generation mechanical or bioprosthetic aortic heart valve replacement. Note: Patients with mechanical aortic valve replacement and additional risk factors for thromboembolic events (atrial fibrillation, previous thromboembolism, LV dysfunction, hypercoagulable conditions) or an older generation mechanical AVR (i.e., ball in-Cage) or any mechanical MVR should have a INR therapeutic range of 2.5 to 3.5 (target INR of 3). Mercedes GH, et al. Chest 2012, 141:7S-47S Stevan RA, et al. [facility] 2017, 70: 252-289 Performed By: #### 3 4528-0, 43865-5, 66320-4 #### [facility] CLIA [id number] [address] [place] [address] [place] PT Coag (PPP) [Time] 10.4 s Normal 9.7-13.0 [facility] Comment on above: Order Comment: Speci men Type: BLOOD SPECIMEN [facility] Address: [address] [place], [place] [id number] Performed By: #### 3 4528-0, 09902-6, 09361-9 #### [facility] CLIA [id number] [address] [place] [address] [place] XR CHEST 1V FRONTALon 2023 XR CHEST 1V FRONTAL * * *Final Report* * * DATE OF EXAM: Jan 06 2024 5:53AM MDX 5290 - XR CHEST 1V FRONTAL / PROCEDURE REASON: Chest pain * * * * Physician Interpretation * * * * EXAMINATION: CHEST RADIOGRAPH (SINGLE VIEW AP OR PA) CLINICAL HISTORY: Chest pain MQ: XC1_5 Comparison: 12/05/2018 RESULT: Lines, tubes, and devices: None. Lungs and pleura: Linear atelectasis along the RIGHT hemidiaphragm.. No pleural effusion. Cardiomediastinal silhouette: Normal cardiomediastinal silhouette. Other: No acute bony abnormality. IMPRESSION: No acute radiographic abnormality. Motion Designer: SELINA Transcribe Date/Time: Jan 06 2024 6:23A Dictated by : LAURI DUNCAN MD This examination was interpreted and the report reviewed and electronically signed by: LAURI DUNCAN MD on Jan 06 2024 6:25AM EST [id number] Normal [facility] aPTT PPPon 01-06-2024 aPTT Coag (PPP) [Time] 39.3 s High 23.0-32.4 [facility] Comment on above: Order Comment: Speci men Type: BLOOD SPECIMEN [facility] Address: [address] [place] [address] Performed By: #### 3 4528-0, 59989-1, 20385-1 #### [facility] CLIA [id number] [address] [place] [address] XR Hand - left 3 Viewson Acute fracture of th e midshaft of the fourth metacarpal with associated soft tissue swelling. Report Dictated on Electronically Signed By: Phillip Oshea MD Electronically Signed Date/Time: 10/21/2023 4:36 PM EDT [facility] 1980 [id number] Exam Date/Time: 10/21/2023 16:05 Procedure: XR HAND 3+ VIEWS LEFT Ordering Provider: COLLADO SCOTT Reason For Exam: Hand trauma, no prior imaging EXAMINATION: XR left hand. EXAM DATE & TIME: 10/21/2023 4:05 PM EDT INDICATION: Hand trauma, no prior imaging ADDITIONAL INFORMATION: 43-year-old male with a history of hand trauma presents for evaluation COMPARISON: None TECHNIQUE: AP, lateral and oblique views of the left hand were obtained. FINDINGS: There is an acute, obliquely oriented and slightly displaced fracture of the midshaft of the fourth metacarpal with associated soft tissue swelling. A remote deformity of the ulnar styloid is also seen. There is orthopedic fixation of the distal left radius with a plate and screw device which appears in satisfactory alignment. The bones are well-mineralized. No radiopaque foreign body. [facility] Phillip Oshea MD - 10/21/2023 Patient Name: [facility] SMITH : 1980 [id number] Exam Date/Time: 10/21/2023 16:05 Procedure: XR HAND 3+ VIEWS LEFT Ordering Provider: COLLADO SCOTT Reason For Exam: Hand trauma, no prior imaging EXAMINATION: XR left hand. EXAM DATE & TIME: 10/21/2023 4:05 PM EDT INDICATION: Hand trauma, no prior imaging ADDITIONAL INFORMATION: 43-year-old male with a history of hand trauma presents for evaluation COMPARISON: None TECHNIQUE: AP, lateral and oblique views of the left hand were obtained. FINDINGS: There is an acute, obliquely oriented and slightly displaced fracture of the midshaft of the fourth metacarpal with associated soft tissue swelling. A remote deformity of the ulnar styloid is also seen. There is orthopedic fixation of the distal left radius with a plate and screw device which appears in satisfactory alignment. The bones are well-mineralized. No radiopaque foreign body. IMPRESSION: Acute fracture of the midshaft of the fourth metacarpal with associated soft tissue swelling. Report Dictated on Electronically Signed By: Phillip Oshea MD Electronically Signed Date/Time: 10/21/2023 4:36 PM EDT [facility] Radiology Study observation (narrative) [facility] XR Hand - left 3 ViewsOrdere d By: Phillip Oshea on 10-21-2023 [facility] [employer] Work Phone: Basic metabolic 1998 panelon 04-25-2023 Anion gap [Moles/Vol] 9 mmol/L 3 - 13 mmol/L [facility] Calcium [Mass/Vol] 8.6 mg/dL 8.4 - 10. 4 mg/dL [facility] Chloride [Moles/Vol] 99 mmol/L 98 - 10 7 mmol/L [facility] CO2 [Moles/Vol] 24 mmol/L 22 - 30 mmol/L [facility] Creatinine [Mass/Vol] 0.59 mg/dL Low 0.66 - 1.25 mg/dL [facility] GFR/1.73 sq M.predicted MDRD (S/P/Bld) [Vol rate/Area] - PINF [facility] Comment on above: Calculation based on the Chronic Kidney Disease Epidemiology Collaboration (CKD-EPI) equation refit without adjustment for race Glucose [Mass/Vol] 98 mg/dL 70 - 100 mg/dL [facility] Interpretation and review of laboratory results Abnormal [facility] Potassium [Moles/Vol] 3.1 mmol/L Low 3.5 - 5.1 mmol/L [facility] Sodium [Moles/Vol] 132 mmol/L Low 135 - 145 mmol/L [facility] Urea nitrogen [Mass/Vol] 7 mg/dL Low 9 - 20 mg/dL [facility] Slight Hemolysis [facility] Ethanol (Bld) [Mass/Vol]on 0 04-25-2023 Ethanol [Mass/Vol] g/dL 0.000 - 0 .010 g/dL [facility] Lipaseon 04-25-2023 Lipase [Catalytic activity/Vol] 27 U/L 23 - 300 U/L [facility] Natriuretic peptide B [Mass/ Vol]on 04-25-2023 Natriuretic peptide B (Bld) [Mass/Vol] 38 pg/mL <20 - 100 [facility] No Panel Informationon 04-25 P [place] 38 degrees [facility] MI Interval 156 ms [facility] QRS [place] 18 degrees [facility] QRSD Interval 104 ms [facility] Interval 356 ms [facility] QTC Interval 471 ms [facility] T Wave [place] 145 degrees [facility] SINUS TACHYCARDIA LVH WITH SECONDARY REPOLARIZATION ABNORMALITY Electronically Signed On 04-25-2023 02:31:49 EST by Lauri Kinney MD - 04/25/2023 IMPRESSION: SINUS TACHYCARDIA LVH WITH SECONDARY REPOLARIZATION ABNORMALITY Electronically Signed On 04-25-2023 02:31:49 EST by Lauri Dior [facility] Interpretation and review of laboratory results Normal [facility] Procalcitonin Teston Procalcitonin [Mass/Vol] 11.45 ng/mL High 0.00 - 0.09 ng/mL [facility] Procalcitonin [Mass/Vol]on 0 04-25-2023 Interpretation and review of laboratory results Abnormal [facility] PCT <0.50 = Low risk of severe sepsis and/or septic shock. PCT >2.00 = High risk of severe sepsis and/or septic shock. [facility] SARS-CoV-2, Flu A/B, and RSV Comboon 04-25-2023 FLUAV RNA CONNOR+probe Ql (Resp) Not detected Not Detected [facility] FLUBV RNA CONNOR+probe Ql (Resp) Not detected Not Detected [facility] Interpretation and review of laboratory results Normal [facility] RSV RNA CONNOR+probe Ql (Resp) Not detected Not Detected [facility] SARS-CoV-2 (COVID-19) RNA CONNOR+probe Ql (Resp) Not detected Not Detected [facility] SARS-CoV-2 (COVID-19) RNA CONNOR+probe Ql (Unsp spec) Methodology: real-time, RT-PCR The SARS-CoV-2, Flu A/B, and RSV Combo assay is intended for in vitro diagnostic use under the FDA Emergency Use Authorization (EUA). This test has not been FDA cleared or approved. In compliance with this authorization, please visit www.fda.gov/media/294 667/download or www.fda.gov/media/179 105/download to access the applicable information sheets. [facility] Troponin I.cardiac [Mass/Vol ]on 04-25-2023 Patients with high levels of Biotin oral intake (ie >5 mg/day) may have falsely decreased Troponin levels. [facility] Troponin, with Serial Reflex on 04-25-2023 Troponin I.cardiac [Mass/Vol] ng/mL NINF - 0.034 ng/mL [facility] Vital signson 04-25-2023 Heart rate 105 /min bpm [facility] CBC W Auto Differential pane l (Bld)Ordered By: Frannie Manzanares on 04-24-2023 Basophils (Bld) [#/Vol] 0.1 10*3/uL 0.0 - 0.2 10*3/uL [facility] Basophils/100 WBC (Bld) 0.4 % 0.0 - 2.0 % [facility] Eosinophils (Bld) [#/Vol] 0.2 10*3/uL 0.0 - 0.5 10*3/uL [facility] Eosinophils/100 WBC (Bld) 1.2 % 1.0 - 6.0 % [facility] Erythrocyte distribution width (RBC) [Ratio] 20.0 % High 11.5 - 14.5 % [facility] Hematocrit (Bld) [Volume fraction] 34.3 % Low 40.0 - 52.0 % [facility] Hemoglobin (Bld) [Mass/Vol] 11.8 g/dL Low 13.0 - 18.0 g/dL [facility] Immature granulocytes (Bld) [#/Vol] 0.1 10*3/uL High NINF - 0.0 10*3/uL [facility] Immature granulocytes/100 WBC (Bld) 0.7 % High NINF - 0.0 % [facility] Interpretation and review of laboratory results Abnormal [facility] Lymphocytes (Bld) [#/Vol] 1.8 10*3/uL 1.0 - 4.3 10*3/uL [facility] Lymphocytes/100 WBC (Bld) 13.3 % Low 20.0 - 40.0 % [facility] MCH (RBC) [Entitic mass] 29.9 pg 26.0 - 34.0 pg [facility] MCHC (RBC) [Mass/Vol] 34.4 % 32.0 - 36.0 % [facility] MCV (RBC) [Entitic vol] 87.1 fL 80.0 - 98.0 fL [facility] Monocytes (Bld) [#/Vol] 1.0 10*3/uL High 0.0 - 0.8 10*3/uL [facility] Monocytes/100 WBC (Bld) 7.2 % 2.0 - 10.0 % [facility] Neutrophils (Bld) [#/Vol] 10.5 10*3/uL High 1.8 - 7.0 10*3/uL [facility] Neutrophils/100 WBC (Bld) 77.2 % 40.0 - 80.0 % [facility] Platelet mean volume (Bld) [Entitic vol] 10.1 fL 7.4 - 12.4 fL [facility] Comment on above: MPV is a calculated measurement using platelet volume ratio Platelets (Bld) [#/Vol] 648 10*3/uL High 140 - 440 10*3/uL [facility] RBC (Bld) [#/Vol] 3.94 10*6/uL Low 4.40 - 5.9 0 10*6/uL [facility] WBC (Bld) [#/Vol] 13.6 10*3/uL High 3.6 - 10.7 10*3/uL [facility] XR Chest Single viewon 04-24 1. Lines/Tubes/Devices/H ardware: Leads noted. Please confirm position and function of any catheters or attempted catheters clinically. 2. Lungs: Bilateral infiltrate densities concerning for pneumonia visualized. No major volume loss.. Limited due to portable technique. Consider follow-up with PA and lateral chest for persistent symptoms. 3. Pleura: No significant effusion. No significant pneumothorax. 4. Heart and mediastinum: Limited due to technique. 5. Upper abdomen: No acute process seen. 6. Thorax:No acute bony process Report Dictated on Electronically Signed By: Dev Queen MD Electronically Signed Date/Time: 04/24/2023 11:52 PM EST [facility] Patient Name: EL SMITH : 1980 Exam Date/Time: 04/24/2023 23:50 Procedure: XR CHEST 1 VIEW Ordering Provider: DIOR JAY Reason For Exam: CHEST PAIN EXAM TYPE: RADIOLOGIC EXAMINATION, CHEST, SINGLE VIEW FRONTAL (CXR SINGLE VIEW) EXAM DATE AND TIME: 04/24/2023 11:50 PM EST INDICATION: Chest pain COMPARISON: 04/19/2023 TECHNIQUE: A single frontal view of the thorax was obtained and reviewed. Special views: None. [facility] Dev Queen MD - 04/24/2023 Patient Name: EL SMITH : 1980 Exam Date/Time: 04/24/2023 23:50 Procedure: XR CHEST 1 VIEW Ordering Provider: DIOR JAY Reason For Exam: CHEST PAIN EXAM TYPE: RADIOLOGIC EXAMINATION, CHEST, SINGLE VIEW FRONTAL (CXR SINGLE VIEW) EXAM DATE AND TIME: 04/24/2023 11:50 PM EST INDICATION: Chest pain COMPARISON: 04/19/2023 TECHNIQUE: A single frontal view of the thorax was obtained and reviewed. Special views: None. IMPRESSION: 1. Lines/Tubes/Devices/H ardware: Leads noted. Please confirm position and function of any catheters or attempted catheters clinically. 2. Lungs: Bilateral infiltrate densities concerning for pneumonia visualized. No major volume loss.. Limited due to portable technique. Consider follow-up with PA and lateral chest for persistent symptoms. 3. Pleura: No significant effusion. No significant pneumothorax. 4. Heart and mediastinum: Limited due to technique. 5. Upper abdomen: No acute process seen. 6. Thorax:No acute bony process Report Dictated on Electronically Signed By: Dev Queen MD Electronically Signed Date/Time: 04/24/2023 11:52 PM EST [facility] Radiology Study observation (narrative) [facility] XR Chest Single viewOrdered By: Dev Queen on 04-24-2023 [facility] Work Phone: Bacteria identified Aer cx N om (Lower resp)Ordered By: Myranda Whitehead on 04-22-2023 Gram Stain Result Moderate Epithelial cells per low power field Abnormal [facility] Gram Stain Result Few Polymorphonuclea r leukocytes per low power field Abnormal [facility] Gram Stain Result Positive Abnormal [facility] Interpretation and review of laboratory results Abnormal [facility] CBC W Auto Differential pane l (Bld)Ordered By: Erlin Quintana on 04-22-2023 Erythrocyte distribution width (RBC) [Ratio] 24.8 % High 11.5 - 14.5 % [facility] Hematocrit (Bld) [Volume fraction] 34.0 % Low 40.0 - 52.0 % [facility] Hemoglobin (Bld) [Mass/Vol] 11.0 g/dL Low 13.0 - 18.0 g/dL [facility] MCH (RBC) [Entitic mass] 29.1 pg 26.0 - 34.0 pg [facility] MCHC (RBC) [Mass/Vol] 32.3 % 32.0 - 36.0 % [facility] MCV (RBC) [Entitic vol] 90.1 fL 80.0 - 98.0 fL [facility] Nucleated RBC/100 WBC (Bld) [Ratio] 0.0 % [facility] Platelet mean volume (Bld) [Entitic vol] 7.1 fL Low 7.4 - 12.4 fL [facility] Platelets (Bld) [#/Vol] 256 10*3/uL 140 - 440 10*3/uL [facility] RBC (Bld) [#/Vol] 3.78 10*6/uL Low 4.40 - 5.9 0 10*6/uL [facility] WBC (Bld) [#/Vol] 12.5 10*3/uL High 3.6 - 10.7 10*3/uL [facility] Comprehensive metabolic 1998 panelon 04-22-2023 Albumin [Mass/Vol] 3.3 g/dL Low 3.5 - 5.0 g/dL [facility] ALP [Catalytic activity/Vol] 152 U/L High 38 - 126 U/L [facility] ALT [Catalytic activity/Vol] 56 U/L High 0 - 49 U/L [facility] Anion gap [Moles/Vol] 5 mmol/L 3 - 13 mmol/L [facility] AST [Catalytic activity/Vol] 100 U/L High 15 - 46 U/L [facility] Bilirubin [Mass/Vol] 0.9 mg/dL 0.2 - 1 .3 mg/dL [facility] Calcium [Mass/Vol] 8.5 mg/dL 8.4 - 10. 4 mg/dL [facility] Chloride [Moles/Vol] 99 mmol/L 98 - 10 7 mmol/L [facility] CO2 [Moles/Vol] 27 mmol/L 22 - 30 mmol/L [facility] Creatinine [Mass/Vol] 0.54 mg/dL Low 0.66 - 1.25 mg/dL [facility] GFR/1.73 sq M.predicted MDRD (S/P/Bld) [Vol rate/Area] - PINF [facility] Comment on above: Calculation based on the Chronic Kidney Disease Epidemiology Collaboration (CKD-EPI) equation refit without adjustment for race Glucose [Mass/Vol] 102 mg/dL High 70 - 100 mg/dL [facility] Interpretation and review of laboratory results Abnormal [facility] Potassium [Moles/Vol] 3.8 mmol/L 3.5 - 5.1 mmol/L [facility] Protein [Mass/Vol] 6.4 g/dL 6.3 - 8.2 g/dL [facility] Sodium [Moles/Vol] 132 mmol/L Low 135 - 145 mmol/L [facility] Urea nitrogen [Mass/Vol] 8 mg/dL Low 9 - 20 mg/dL [facility] Manual differential performe d Ql (Bld)on 04-22-2023 Anisocytosis Ql (Bld) Moderate Abnormal (none) [facility] Basophils (Bld) [#/Vol] 0.1 10*3/uL 0.0 - 0.2 10*3/uL [facility] Basophils Manual [address] [facility] Basophils/100 WBC (Bld) 1 % 0 - 2 % [facility] Cells Counted Total (Bld) [#] 100 {cells} [facility] Differential Method Manual differential performed [facility] Leukocyte morphology finding Nom (Bld) Normal [facility] Lymphocytes (Bld) [#/Vol] 1.5 10*3/uL 1.0 - 4.3 10*3/uL [facility] Lymphocytes Manual 12 [facility] Lymphocytes/100 WBC (Bld) 12 % Low 20 - 40 % [facility] Monocytes (Bld) [#/Vol] 1.1 10*3/uL High 0.0 - 0.8 10*3/uL [facility] Monocytes Manual [address] [facility] Monocytes/100 WBC (Bld) 9 % 2 - 10 % [facility] Neutrophils (Bld) [#/Vol] 9.8 10*3/uL High 1.8 - 7.0 10*3/uL [facility] Neutrophils Manual 78 [facility] Platelet morphology finding Nom (Bld) Normal [facility] Poikilocytosis LM Ql (Bld) Slight Abnormal (none) [facility] Polychromasia LM Ql (Bld) Slight Abnormal (none) [facility] Segmented neutrophils/100 WBC (Bld) 78 % 40 - 80 % [facility] Stomatocytes LM Ql (Bld) Slight Abnormal (none) [facility] WBC corrected for nucl RBC (Bld) [#/Vol] 12.5 10*3/uL High 3.6 - 10.7 10*3/uL [facility] No Panel Informationon 04-22 Interpretation and review of laboratory results Abnormal [facility] Respiratory culture and Stai nOrdered By: Myranda Carlostiffany Whitehead on 04-22-2023 Bacteria identified Aer cx Nom (Lower resp) Few respiratory mack present. [facility] [place] CBC W Auto Differential pane l (Bld)Ordered By: Kelly Cárdenas on 04-21-2023 Erythrocyte distribution width (RBC) [Ratio] 24.2 % High 11.5 - 14.5 % [facility] [place] Hematocrit (Bld) [Volume fraction] 31.1 % Low 40.0 - 52.0 % [facility] [place] Hemoglobin (Bld) [Mass/Vol] 10.2 g/dL Low 13.0 - 18.0 g/dL [facility] [place] MCH (RBC) [Entitic mass] 29.8 pg 26.0 - 34.0 pg [facility] [place] MCHC (RBC) [Mass/Vol] 32.9 % 32.0 - 36.0 % [facility] [place] MCV (RBC) [Entitic vol] 90.5 fL 80.0 - 98.0 fL [facility] [place] Nucleated RBC/100 WBC (Bld) [Ratio] 0.0 % [facility] [place] Platelet mean volume (Bld) [Entitic vol] 7.1 fL Low 7.4 - 12.4 fL [facility] [place] Platelets (Bld) [#/Vol] 214 10*3/uL 140 - 440 10*3/uL [facility] [place] RBC (Bld) [#/Vol] 3.44 10*6/uL Low 4.40 - 5.9 0 10*6/uL [facility] [place] WBC (Bld) [#/Vol] 10.9 10*3/uL High 3.6 - 10.7 10*3/uL [facility] [place] Comprehensive metabolic 1998 panelon 04-21-2023 Albumin [Mass/Vol] 2.9 g/dL Low 3.5 - 5.0 g/dL [facility] [place] ALP [Catalytic activity/Vol] 132 U/L High 38 - 126 U/L [facility] [place] ALT [Catalytic activity/Vol] 48 U/L 0 - 49 U/L [facility] [place] Anion gap [Moles/Vol] 4 mmol/L 3 - 13 mmol/L [facility] [place] AST [Catalytic activity/Vol] 97 U/L High 15 - 46 U/L [facility] [place] Bilirubin [Mass/Vol] 0.4 mg/dL 0.2 - 1 .3 mg/dL [facility] [place] Calcium [Mass/Vol] 7.8 mg/dL Low 8.4 - 10. 4 mg/dL [facility] [place] Chloride [Moles/Vol] 100 mmol/L 98 - 10 7 mmol/L [facility] [place] CO2 [Moles/Vol] 27 mmol/L 22 - 30 mmol/L [facility] [place] Creatinine [Mass/Vol] 0.55 mg/dL Low 0.66 - 1.25 mg/dL [facility] [place] GFR/1.73 sq M.predicted MDRD (S/P/Bld) [Vol rate/Area] - PINF [facility] [place] Comment on above: Calculation based on the Chronic Kidney Disease Epidemiology Collaboration (CKD-EPI) equation refit without adjustment for race Glucose [Mass/Vol] 110 mg/dL High 70 - 100 mg/dL [facility] [place] Interpretation and review of laboratory results Abnormal [facility] [place] Potassium [Moles/Vol] 3.6 mmol/L 3.5 - 5.1 mmol/L [facility] [place] Protein [Mass/Vol] 5.6 g/dL Low 6.3 - 8.2 g/dL [facility] [place] Sodium [Moles/Vol] 131 mmol/L Low 135 - 145 mmol/L [facility] [place] Urea nitrogen [Mass/Vol] 11 mg/dL 9 - 20 mg/dL [facility] Manual differential performe d Ql (Bld)on 04-21-2023 Anisocytosis Ql (Bld) Moderate Abnormal (none) [facility] Basophils (Bld) [#/Vol] 0.1 10*3/uL 0.0 - 0.2 10*3/uL [facility] [place] Basophils Manual [address] [facility] alth Basophils/100 WBC (Bld) 1 % 0 - 2 % [facility] Cells Counted Total (Bld) [#] 100 {cells} [facility] [place] Dacrocytes LM Ql (Bld) Rare Abnormal (none) [facility] Differential Method Manual differential performed [facility] [place] Eosinophils (Bld) [#/Vol] 0.1 10*3/uL 0.0 - 0.5 10*3/uL [facility] [place] Eosinophils Manual 1 0 - 1 [facility] [place] Eosinophils/100 WBC (Bld) 1 % 1 - 6 % [facility] [place] Hypochromia Ql (Bld) Slight Abnormal (none) [facility] Leukocyte morphology finding Nom (Bld) Normal [facility] [place] Lymphocytes (Bld) [#/Vol] 1.9 10*3/uL 1.0 - 4.3 10*3/uL [facility] [place] Lymphocytes Manual 17 [facility] [place] Lymphocytes/100 WBC (Bld) 17 % Low 20 - 40 % [facility] [place] Monocytes (Bld) [#/Vol] 0.8 10*3/uL 0.0 - 0.8 10*3/uL [facility] [place] Monocytes Manual [address] [facility] alth Monocytes/100 WBC (Bld) 7 % 2 - 10 % [facility] Neutrophils (Bld) [#/Vol] 8.1 10*3/uL High 1.8 - 7.0 10*3/uL [facility] [place] Neutrophils Manual 74 [facility] [place] Ovalocytes LM Ql (Bld) Slight Abnormal (none) [facility] Platelet morphology finding Nom (Bld) Normal [facility] [place] Poikilocytosis LM Ql (Bld) Slight Abnormal (none) [facility] [place] Polychromasia LM Ql (Bld) Moderate Abnormal (none) [facility] [place] Segmented neutrophils/100 WBC (Bld) 74 % 40 - 80 % [facility] [place] WBC corrected for nucl RBC (Bld) [#/Vol] 10.9 10*3/uL High 3.6 - 10.7 10*3/uL [facility] [place] No Panel InformationOrdered By: Kelly Cárdenas on 04-21-2023 Interpretation and review of laboratory results Abnormal [facility] CBC W Auto Differential pane l (Bld)on 04-20-2023 Erythrocyte distribution width (RBC) [Ratio] 24.4 % High 11.5 - 14.5 % [facility] [place] Hematocrit (Bld) [Volume fraction] 31.9 % Low 40.0 - 52.0 % [facility] [place] Hemoglobin (Bld) [Mass/Vol] 10.5 g/dL Low 13.0 - 18.0 g/dL [facility] [place] Interpretation and review of laboratory results Abnormal [facility] [place] MCH (RBC) [Entitic mass] 29.6 pg 26.0 - 34.0 pg [facility] [place] MCHC (RBC) [Mass/Vol] 32.8 % 32.0 - 36.0 % [facility] [place] MCV (RBC) [Entitic vol] 90.0 fL 80.0 - 98.0 fL [facility] [place] Nucleated RBC/100 WBC (Bld) [Ratio] 0.0 % [facility] [place] Platelet mean volume (Bld) [Entitic vol] 7.4 fL 7.4 - 12.4 fL [facility] [place] Platelets (Bld) [#/Vol] 188 10*3/uL 140 - 440 10*3/uL [facility] [place] RBC (Bld) [#/Vol] 3.55 10*6/uL Low 4.40 - 5.9 0 10*6/uL [facility] [place] WBC (Bld) [#/Vol] 10.4 10*3/uL 3.6 - 10.7 10*3/uL [facility] Comprehensive metabolic 1998 panelon 04-20-2023 Albumin [Mass/Vol] 2.8 g/dL Low 3.5 - 5.0 g/dL [facility] [place] ALP [Catalytic activity/Vol] 125 U/L 38 - 126 U/L [facility] [place] ALT [Catalytic activity/Vol] 52 U/L High 0 - 49 U/L [facility] [place] Anion gap [Moles/Vol] 7 mmol/L 3 - 13 mmol/L [facility] [place] AST [Catalytic activity/Vol] 94 U/L High 15 - 46 U/L [facility] [place] Bilirubin [Mass/Vol] 0.7 mg/dL 0.2 - 1 .3 mg/dL [facility] [place] Calcium [Mass/Vol] 7.7 mg/dL Low 8.4 - 10. 4 mg/dL [facility] [place] Chloride [Moles/Vol] 100 mmol/L 98 - 10 7 mmol/L [facility] [place] CO2 [Moles/Vol] 27 mmol/L 22 - 30 mmol/L [facility] [place] Creatinine [Mass/Vol] 0.56 mg/dL Low 0.66 - 1.25 mg/dL [facility] [place] GFR/1.73 sq M.predicted MDRD (S/P/Bld) [Vol rate/Area] - PINF [facility] [place] Comment on above: Calculation based on the Chronic Kidney Disease Epidemiology Collaboration (CKD-EPI) equation refit without adjustment for race Glucose [Mass/Vol] 108 mg/dL High 70 - 100 mg/dL [facility] [place] Interpretation and review of laboratory results Abnormal [facility] [place] Potassium [Moles/Vol] 3.6 mmol/L 3.5 - 5.1 mmol/L [facility] [place] Protein [Mass/Vol] 5.4 g/dL Low 6.3 - 8.2 g/dL [facility] [place] Sodium [Moles/Vol] 134 mmol/L Low 135 - 145 mmol/L [facility] [place] Urea nitrogen [Mass/Vol] 19 mg/dL 9 - 20 mg/dL [facility] Fentanyl, urineOrdered By: Bev Sheikh on 04-20-2023 FENTANYL SCREEN, URINE Negative Negative [facility] Fentanyl has been screened for by Immunoassay at a 1 ng/ml threshold. POSITIVE results are not confirmed by a more specific alternative method unless requested. If confirmation is needed, request confirmation under separate order. NOTE: These results are for medical treatment only. Analysis performed using non-forensic procedures. [facility] Manual differential performe d Ql (Bld)on 04-20-2023 Anisocytosis Ql (Bld) Moderate Abnormal (none) [facility] Cells Counted Total (Bld) [#] 100 {cells} [facility] [place] Differential Method Manual differential performed [facility] [place] Eosinophils (Bld) [#/Vol] 0.2 10*3/uL 0.0 - 0.5 10*3/uL [facility] [place] Eosinophils Manual 2 High 0 - 1 [facility] [place] Eosinophils/100 WBC (Bld) 2 % 1 - 6 % [facility] [place] Hypochromia Ql (Bld) Slight Abnormal (none) [facility] Interpretation and review of laboratory results Abnormal [facility] [place] Leukocyte morphology finding Nom (Bld) Normal [facility] [place] Lymphocytes (Bld) [#/Vol] 1.2 10*3/uL 1.0 - 4.3 10*3/uL [facility] [place] Lymphocytes Manual 12 [facility] [place] Lymphocytes/100 WBC (Bld) 12 % Low 20 - 40 % [facility] [place] Monocytes (Bld) [#/Vol] 0.3 10*3/uL 0.0 - 0.8 10*3/uL [facility] [place] Monocytes Manual [address] [facility] alth Monocytes/100 WBC (Bld) 3 % 2 - 10 % [facility] Neutrophils (Bld) [#/Vol] 8.6 10*3/uL High 1.8 - 7.0 10*3/uL [facility] [place] Neutrophils Manual 83 [facility] [place] Nucleated RBC/100 WBC (Bld) [Ratio] 2 % [facility] [place] Ovalocytes LM Ql (Bld) Slight Abnormal (none) [facility] Platelet morphology finding Nom (Bld) Normal [facility] [place] Polychromasia LM Ql (Bld) Moderate Abnormal (none) [facility] [place] Segmented neutrophils/100 WBC (Bld) 83 % High 40 - 80 % [facility] [place] WBC corrected for nucl RBC (Bld) [#/Vol] 10.4 10*3/uL 3.6 - 10.7 10*3/uL [facility] Respiratory pathogens DNA an d RNA panel CONNOR+non-probe (Lower resp)Ordered By: Agnieszka Humphreys on 04-20-2023 Acinetobacter baumannii complex Not detected Not Detected [facility] [place] Adenovirus Not detected Not Detected [facility] th Chlamydia pneumoniae Not detected Not Detected [facility] [place] Enterobacter cloacae complex Not detected Not Detected [facility] [place] Escherichia coli Not detected Not Detected [facility] FLUAV RNA CONNOR+non-probe Ql (Lower resp) Not detected Not Detected [facility] [place] FLUBV RNA CONNOR+non-probe Ql (Lower resp) Not detected Not Detected [facility] [place] Haemophilus influenzae Not detected Not Detecte d [facility] [place] Human Metapneumovirus Not detected Not Detected [facility] [place] Human Rhinovirus/Enterovirus Not detected Not Detected [facility] Interpretation and review of laboratory results Normal [facility] [place] Klebsiella (Enterobacter) aerogenes Not detected Not Detected [facility] [place] Klebsiella oxytoca Not detected Not Detected [facility] Klebsiella pneumoniae Not detected Not Detected [facility] [place] Legionella pneumophila Not detected Not Detecte d [facility] [place] Moraxella catarrhalis Not detected Not Detected [facility] [place] Mycoplasma pneumoniae Not detected Not Detected [facility] [place] Parainfluenza virus Not detected Not Detected [facility] Proteus spp Not detected Not Detected [facility] Pseudomonas aeruginosa Not detected Not Detecte d [facility] [place] RSV RNA CONNOR+probe Ql (Resp) Not detected Not Detected [facility] [place] S. agalactiae Org specific cx Ql (Vag fld) Not detected Not Detected [facility] [place] SARS-CoV-2 (COVID-19) RNA CONNOR+non-probe Ql (Nph) Not detected Not Detected [facility] [place] SARS-CoV-2 (COVID-19) RNA CONNOR+probe Ql (Unsp spec) Methodology: Multiplex PCR This panel does not test for SARS-CoV-2 (Covid-19). The following antimicrobial resistance gene is reported if the appropriate organism is detected: mecA. The following antimicrobial resistance genes are reported if detected and the appropriate organisms are detected: CTX-M, IMP, KPC, NDM, OXA-48-like, and VIM. [facility] [place] Serratia marcescens Not detected Not Detected [facility] Staphylococcus aureus Not detected Not Detected [facility] [place] Streptococcus pneumoniae Not detected Not Detected [facility] [place] Streptococcus pyogenes Not detected Not Detecte d [facility] Respiratory pathogens DNA an d RNA panel CONNOR+non-probe (Nph)on 04-20-2023 Adenovirus Not detected Not Detected [facility] th B. pertussis DNA CONNOR+probe Ql (Unsp spec) Not detected Not Detected [facility] [place] Bordetella parapertussis Not detected Not Detected [facility] [place] Chlamydia pneumoniae Not detected Not Detected [facility] [place] Coronavirus 229E Not detected Not Detected [facility] Coronavirus HKU1 Not detected Not Detected [facility] Coronavirus NL63 Not detected Not Detected [facility] Coronavirus OC43 Not detected Not Detected [facility] FLUAV RNA CONNOR+non-probe Ql (Nph) Not detected Not Detected [facility] [place] FLUBV RNA CONNOR+non-probe Ql (Nph) Not detected Not Detected [facility] [place] Human Metapneumovirus Not detected Not Detected [facility] [place] Human Rhinovirus/Enterovirus Not detected Not Detected [facility] Interpretation and review of laboratory results Normal [facility] [place] Mycoplasma pneumoniae Not detected Not Detected [facility] [place] Parainfluenza 1 Not detected Not Detected [facility] [place] Parainfluenza 2 Not detected Not Detected [facility] [place] Parainfluenza 3 Not detected Not Detected [facility] [place] Parainfluenza 4 Not detected Not Detected [facility] [place] Respiratory Syncytial Virus Not detected Not Detected [facility] [place] SARS-CoV-2 (COVID-19) RNA CONNOR+non-probe Ql (Nph) Not detected Not Detected [facility] [place] Methodology: Multiplex PCR [facility] XR Chest Single viewon 04-20 Subtle perihilar streaky opacities bilaterally most likely secondary to bronchitis or viral infection. Report Dictated on Electronically Signed By: Vlad Otero Electronically Signed Date/Time: 04/19/2023 7:25 AM EST Report Dictated on Electronically Signed By: Vlad Otero MD Electronically Signed Date/Time: 04/20/2023 4:50 PM EST [facility] Patient Name: LE SMITH : 1980 Exam Date/Time: 04/19/2023 06:28 Procedure: XR CHEST 1 VIEW Ordering Provider: CORONA TYLER Reason For Exam: sob, eval for pneumonia AP CHEST X-RAY CLINICAL INDICATION: Cough and chest congestion TECHNIQUE: AP portable x-ray of the chest. COMPARISON: 04/16/2023 FINDINGS: Heart/Mediastinum: Within normal limits Lungs: Subtle streaky perihilar and infrahilar opacities bilaterally. No focal consolidation, pleural effusion or pneumothorax. Bones: Unremarkable [facility] Vlad Otero M D - 04/20/2023 Patient Name: EL SMITH : 1980 Exam Date/Time: 04/19/2023 06:28 Procedure: XR CHEST 1 VIEW Ordering Provider: CORONA TYLER Reason For Exam: sob, eval for pneumonia AP CHEST X-RAY CLINICAL INDICATION: Cough and chest congestion TECHNIQUE: AP portable x-ray of the chest. COMPARISON: 04/16/2023 FINDINGS: Heart/Mediastinum: Within normal limits Lungs: Subtle streaky perihilar and infrahilar opacities bilaterally. No focal consolidation, pleural effusion or pneumothorax. Bones: Unremarkable IMPRESSION: Subtle perihilar streaky opacities bilaterally most likely secondary to bronchitis or viral infection. Report Dictated on Electronically Signed By: Vlad Otero Electronically Signed Date/Time: 04/19/2023 7:25 AM EST Report Dictated on Electronically Signed By: Vlad Otero MD Electronically Signed Date/Time: 04/20/2023 4:50 PM EST [employer] XR Chest Single viewOrdered By: Vlad Otero on 04-20-2023 [facility] [employer] Work Phone: CBC W Auto Differential pane l (Bld)Ordered By: Brian Martinez on 04-19-2023 Erythrocyte distribution width (RBC) [Ratio] 24.7 % High 11.5 - 14.5 % [facility] [place] Hematocrit (Bld) [Volume fraction] 35.1 % Low 40.0 - 52.0 % [facility] [place] Hemoglobin (Bld) [Mass/Vol] 11.6 g/dL Low 13.0 - 18.0 g/dL [facility] [place] Interpretation and review of laboratory results Abnormal [facility] [place] MCH (RBC) [Entitic mass] 29.4 pg 26.0 - 34.0 pg [facility] [place] MCHC (RBC) [Mass/Vol] 33.1 % 32.0 - 36.0 % [facility] [place] MCV (RBC) [Entitic vol] 88.8 fL 80.0 - 98.0 fL [facility] [place] Nucleated RBC/100 WBC (Bld) [Ratio] 0.0 % [facility] [place] Platelet mean volume (Bld) [Entitic vol] 7.6 fL 7.4 - 12.4 fL [facility] [place] Platelets (Bld) [#/Vol] 224 10*3/uL 140 - 440 10*3/uL [facility] [place] RBC (Bld) [#/Vol] 3.95 10*6/uL Low 4.40 - 5.9 0 10*6/uL [facility] [place] WBC (Bld) [#/Vol] 14.2 10*3/uL High 3.6 - 10.7 10*3/uL [facility] COVID-19, Flu A/B, and RSV C [facility] 04-19-2023 FLUAV RNA CONNOR+probe Ql (Resp) Not detected Not Detected [facility] [place] FLUBV RNA CONNOR+probe Ql (Resp) Not detected Not Detected [facility] [place] Interpretation and review of laboratory results Normal [facility] [place] RSV RNA CONNOR+probe Ql (Resp) Not detected Not Detected [facility] [place] SARS-CoV-2 (COVID-19) RNA CONNOR+probe Ql (Resp) Not detected Not Detected [facility] alth SARS-CoV-2 (COVID-19) RNA CONNOR+probe Ql (Unsp spec) Methodology: real-time, RT-PCR The SARS-CoV-2, Flu A/B, and RSV Combo assay is intended for in vitro diagnostic use under the FDA Emergency Use Authorization (EUA). This test has not been FDA cleared or approved. In compliance with this authorization, please visit www.fda.gov/media/215 435/download or www.fda.gov/media/830 628/download to access the applicable information sheets. [facility] Comprehensive metabolic 1998 panelon 04-19-2023 Albumin [Mass/Vol] 3.2 g/dL Low 3.5 - 5.0 g/dL [facility] [place] ALP [Catalytic activity/Vol] 120 U/L 38 - 126 U/L [facility] [place] ALT [Catalytic activity/Vol] 65 U/L High 0 - 49 U/L [facility] [place] Anion gap [Moles/Vol] 7 mmol/L 3 - 13 mmol/L [facility] AST [Catalytic activity/Vol] 164 U/L High 15 - 46 U/L [facility] Bilirubin [Mass/Vol] 1.0 mg/dL 0.2 - 1 .3 mg/dL [facility] Calcium [Mass/Vol] 7.8 mg/dL Low 8.4 - 10. 4 mg/dL [facility] [place] Chloride [Moles/Vol] 94 mmol/L Low 98 - 10 7 mmol/L [facility] CO2 [Moles/Vol] 31 mmol/L High 22 - 30 mmol/L [facility] [place] Creatinine [Mass/Vol] 0.63 mg/dL Low 0.66 - 1.25 mg/dL [facility] [place] GFR/1.73 sq M.predicted MDRD (S/P/Bld) [Vol rate/Area] - PINF [facility] [place] Comment on above: Calculation based on the Chronic Kidney Disease Epidemiology Collaboration (CKD-EPI) equation refit without adjustment for race Glucose [Mass/Vol] 117 mg/dL High 70 - 100 mg/dL [facility] [place] Interpretation and review of laboratory results Abnormal [facility] Potassium [Moles/Vol] 3.5 mmol/L 3.5 - 5.1 mmol/L [facility] [place] Protein [Mass/Vol] 5.9 g/dL Low 6.3 - 8.2 g/dL [facility] [place] Sodium [Moles/Vol] 132 mmol/L Low 135 - 145 mmol/L [facility] [place] Urea nitrogen [Mass/Vol] 18 mg/dL 9 - 20 mg/dL [facility] Drug screen panel, emergency Ordered By: Tanika Sawyer on 04-19-2023 Amphetamines Screen method >1000 ng/mL Ql (U) Negative [facility] Barbiturates Screen method >200 ng/mL Ql (U) Positive [facility] Benzodiazepines Ql (U) Negative [facility] COCAINE METAB. SCREEN Negative [facility] Methadone Screen Ql (U) Positive [facility] Opiates Screen Ql (U) Negative [facility] oxyCODONE Ql (U) Negative [facility] alth Phencyclidine Ql (U) Negative [facility] The expected value for all of the drugs listed above is Negative. The following drugs or drug groups have been screened for by Immunoassay at the following thresholds: Amphetamine class (1000 ng/mL) Barbiturates (200 ng/mL) Benzodiazepines (200 ng/mL) Cocaine (300 ng/mL) Methadone (300 ng/mL) Opiates (300 ng/mL) Oxycodone (100 ng/mL) PCP (25 ng/mL) NOTE: These results are for medical treatment only. Analysis performed using non-forensic procedures. POSITIVE results are NOT confirmed by a more specific alternative method unless requested. If confirmation is needed, request confirmation under separate order. [facility] [employer] ECG 12 leadOrdered By: Williams Saucedo on 04-19-2023 Heart rate 109 /min bpm [facility] [employer] Work Phone: P [place] 56 degrees [facility] [employer] Work Phone: MI Interval 152 ms [facility] [employer] Work Phone: QRS [place] 38 degrees [facility] [employer] Phone: QRSD Interval 98 ms [facility] [employer] Work Phone: QT Interval 360 ms [facility] [employer] Work Phone: QTC Interval 485 ms [facility] [employer] Work Phone: T Wave [place] 56 degrees [facility] [employer] Work Phone: [facility] [employer] Work Phone: ECG 12 leadon 04-19-2023 SINUS TACHYCARDIA PROBABLE LEFT VENTRICULAR HYPERTROPHY BORDERLINE PROLONGED QT INTERVAL NO CHANGE SINCE PREVIOUS ECG PERFORMED ON 04-16-2023 Electronically Signed On 04-19-2023 10:12:53 EST by Willian Robbins MD - 04/19/2023 IMPRESSION: SINUS TACHYCARDIA PROBABLE LEFT VENTRICULAR HYPERTROPHY BORDERLINE PROLONGED QT INTERVAL NO CHANGE SINCE PREVIOUS ECG PERFORMED ON 04-16-2023 Electronically Signed On 04-19-2023 10:12:53 EST by Willian Saucedo [facility] Ethanol (Bld) [Mass/Vol]on 0 04-19-2023 Ethanol [Mass/Vol] g/dL 0.000 - 0 .010 g/dL [facility] [place] Interpretation and review of laboratory results Normal [facility] Lactic acid with reflexon Interpretation and review of laboratory results Normal [facility] Lactate [Moles/Vol] 0.8 mmol/L 0.7 - 2. 0 mmol/L [facility] MRSA DNA CONNOR+probe Ql (Nose) on 04-19-2023 Interpretation and review of laboratory results Normal [facility] mecA gene Not detected Not Detected [facility] Staphylococcus aureus Not detected Not Detected [facility] [place] No Staphylococcus aureus detected. Negative nasal MRSA PCR has a high negative predictive value for MRSA pneumonia. Consider stopping Vancomycin if no other clinical indication. Contact Antimicrobial Stewardship for further recommendations. Staphylococcus aureus nasal screen by real-time PCR. This test was modified and its performance characteristics determined by [facility]. The U. S. Food and Drug Administration has not approved or cleared this test; however, FDA clearance or approval is not currently required for clinical use. The results are not intended to be used as the sole means for clinical diagnosis or patient management decisions. [facility] Manual differential performe d Ql (Bld)on 04-19-2023 Anisocytosis Ql (Bld) Marked Abnormal (none) [facility] Basophilic stippling LM Ql (Bld) Slight Abnormal (none) [facility] Basophils (Bld) [#/Vol] 0.1 10*3/uL 0.0 - 0.2 10*3/uL [facility] [place] Basophils Manual [address] [facility] alth Basophils/100 WBC (Bld) 1 % 0 - 2 % [facility] Cells Counted Total (Bld) [#] 100 {cells} [facility] Dacrocytes LM Ql (Bld) Rare Abnormal (none) [facility] Differential Method Manual differential performed [facility] Hypochromia Ql (Bld) Slight Abnormal (none) [facility] Interpretation and review of laboratory results Abnormal [facility] Leukocyte morphology finding Nom (Bld) Normal [facility] Lymphocytes (Bld) [#/Vol] 1.3 10*3/uL 1.0 - 4.3 10*3/uL [facility] [place] Lymphocytes Manual 9 [facility] [place] Lymphocytes/100 WBC (Bld) 9 % Low 20 - 40 % [facility] [place] Monocytes (Bld) [#/Vol] 1.0 10*3/uL High 0.0 - 0.8 10*3/uL [facility] [place] Monocytes Manual [address] [facility] alth Monocytes/100 WBC (Bld) 7 % 2 - 10 % [facility] Neutrophils (Bld) [#/Vol] 11.8 10*3/uL High 1.8 - 7.0 10*3/uL [facility] [place] Neutrophils Manual 83 [facility] Ovalocytes LM Ql (Bld) Slight Abnormal (none) [facility] Platelet morphology finding Nom (Bld) Normal [facility] [place] Poikilocytosis LM Ql (Bld) Slight Abnormal (none) [facility] [place] Polychromasia LM Ql (Bld) Slight Abnormal (none) [facility] Segmented neutrophils/100 WBC (Bld) 83 % High 40 - 80 % [facility] [place] Stomatocytes LM Ql (Bld) Slight Abnormal (none) [facility] Target cells LM Ql (Bld) Slight Abnormal (none) [facility] WBC corrected for nucl RBC (Bld) [#/Vol] 14.2 10*3/uL High 3.6 - 10.7 10*3/uL [facility] No Panel Informationon 04-19 [facility] Troponin Ion 04-19-2023 Troponin I.cardiac [Mass/Vol] ng/mL [facility] - 0.034 ng/mL [facility] [place] Troponin I.cardiac [Mass/Vol] ng/mL [facility] - 0.034 ng/mL [facility] [place] Troponin I.cardiac [Mass/Vol ]on 04-19-2023 Interpretation and review of laboratory results Normal [facility] Patients with high levels of Biotin oral intake (ie >5 mg/day) may have falsely decreased Troponin levels. [facility] Interpretation and review of laboratory results Normal [facility] [place] Patients with high levels of Biotin oral intake (ie >5 mg/day) may have falsely decreased Troponin levels. [facility] Interpretation and review of laboratory results Normal [facility] [place] Patients with high levels of Biotin oral intake (ie >5 mg/day) may have falsely decreased Troponin levels. [facility] Troponin, with Serial Reflex on 04-19-2023 Troponin I.cardiac [Mass/Vol] ng/mL NINF - 0.034 ng/mL [facility] [place] Urinalysis complete panel (U )Ordered By: Sera Parmar on 04-19-2023 Bacteria LM.HPF (Urine sed) [#/Area] Negative Negative /HPF [facility] Bilirubin Ql (U) Negative Negative mg/dL [facility] Clarity (U) Clear Clear [facility] Color (U) Yellow Lt. Yellow [facility] Epithelial cells.squamous LM.HPF (Urine sed) [#/Area] Negative [facility] h Glucose Ql (U) Normal Normal (<70) mg/dL [facility] Hemoglobin Ql (U) Negative Negative mg/dL [facility] [place] Interpretation and review of laboratory results Abnormal [facility] Ketones (U) [Mass/Vol] Trace Abnormal Negat christiano mg/dL [facility] Leukocyte esterase Test strip Ql (U) Negative Negative Soren/uL [facility] [place] Mucus LM.HPF (Urine sed) [#/Area] Few Negative /LPF [facility] [place] Nitrite Ql (U) Negative Negative [facility] th pH (U) 7.5 [pH] 5.0 - 8.0 pH [facility] Protein (U) [Mass/Vol] 20 mg/dL Abnormal Negative [facility] RBC LM.HPF (Urine sed) [#/Area] 3-5 Abnormal [facility] [place] Specific gravity (U) [Rel density] 1.020 1.005 - 1.030 [facility] [place] Urobilinogen (U) [Mass/Vol] 3 mg/dL Abnormal Normal (0-1) [facility] WBC LM.HPF (Urine sed) [#/Area] 0-2 [facility] XR Chest Single viewon 04-19 Radiology Study observation (narrative) [facility] alth Bacteria identified Aer cx N om (Lower resp)Ordered By: Salina Greenberg on 04-17-2023 Gram Stain Result Rare Polymorphonuclear leukocytes per low power field Abnormal [facility] [place] Gram Stain Result Moderate Epithelial cells per low power field Abnormal [facility] Gram Stain Result Positive Abnormal [facility] Gram Stain Result Few Yeast Abnormal [facility] Interpretation and review of laboratory results Abnormal [facility] Basic metabolic 1998 panelOr dered By: Alok Wade on 04-17-2023 Anion gap [Moles/Vol] 12 mmol/L 3 - 13 mmol/L [facility] [place] Calcium [Mass/Vol] 7.6 mg/dL Low 8.4 - 10. 4 mg/dL [facility] Chloride [Moles/Vol] 97 mmol/L Low 98 - 10 7 mmol/L [facility] [place] CO2 [Moles/Vol] 26 mmol/L 22 - 30 mmol/L [facility] [place] Creatinine [Mass/Vol] 0.78 mg/dL 0.66 - 1.25 mg/dL [facility] [place] GFR/1.73 sq M.predicted MDRD (S/P/Bld) [Vol rate/Area] - PINF [facility] [place] Comment on above: Calculation based on the Chronic Kidney Disease Epidemiology Collaboration (CKD-EPI) equation refit without adjustment for race Glucose [Mass/Vol] 150 mg/dL High 70 - 100 mg/dL [facility] Interpretation and review of laboratory results Abnormal [facility] Potassium [Moles/Vol] 3.0 mmol/L Low 3.5 - 5.1 mmol/L [facility] Sodium [Moles/Vol] 135 mmol/L 135 - 145 mmol/L [facility] [place] Urea nitrogen [Mass/Vol] 13 mg/dL 9 - 20 mg/dL [facility] CBC W Auto Differential pane l (Bld)Ordered By: Naila Luna on 04-17-2023 Erythrocyte distribution width (RBC) [Ratio] 24.9 % High 11.5 - 14.5 % [facility] [place] Comment on above: I-Anisocytosis Hematocrit (Bld) [Volume fraction] 41.1 % 40.0 - 52.0 % [facility] [place] Hemoglobin (Bld) [Mass/Vol] 13.7 g/dL 13.0 - 18.0 g/dL [facility] [place] Interpretation and review of laboratory results Abnormal [facility] MCH (RBC) [Entitic mass] 29.5 pg 26.0 - 34.0 pg [facility] MCHC (RBC) [Mass/Vol] 33.2 % 32.0 - 36.0 % [facility] [place] MCV (RBC) [Entitic vol] 88.8 fL 80.0 - 98.0 fL [facility] Nucleated RBC/100 WBC (Bld) [Ratio] 0.2 % [facility] Platelet mean volume (Bld) [Entitic vol] 7.1 fL Low 7.4 - 12.4 fL [facility] Platelets (Bld) [#/Vol] 300 10*3/uL 140 - 440 10*3/uL [facility] RBC (Bld) [#/Vol] 4.64 10*6/uL 4.40 - 5.9 0 10*6/uL [facility] [place] WBC (Bld) [#/Vol] 7.6 10*3/uL 3.6 - 10.7 10*3/uL [facility] CRP [Mass/Vol]on 04-17-2023 Interpretation and review of laboratory results Normal [facility] [place] Hepatic function 2000 panelo n 04-17-2023 Albumin [Mass/Vol] 3.4 g/dL Low 3.5 - 5.0 g/dL [facility] [place] ALP [Catalytic activity/Vol] 120 U/L 38 - 126 U/L [facility] ALT [Catalytic activity/Vol] 62 U/L High 0 - 49 U/L [facility] AST [Catalytic activity/Vol] 134 U/L High 15 - 46 U/L [facility] [place] Bilirubin [Mass/Vol] 0.7 mg/dL 0.2 - 1 .3 mg/dL [facility] [place] Bilirubin.conjugated [Mass/Vol] 0.0 mg/dL 0.0 - 0.3 mg/dL [facility] [place] Interpretation and review of laboratory results Abnormal [facility] Protein [Mass/Vol] 6.1 g/dL Low 6.3 - 8.2 g/dL [facility] [place] Laboratory - Chemistry and C hemistry - challengeon 04-17-2023 CRP [Mass/Vol] 5.3 [facility] [place] Troponin I.cardiac [Mass/Vol] ng/mL NINF - 0.034 ng/mL [facility] [place] Procalcitonin [Mass/Vol] 0.10 ng/mL High 0.00 - 0.09 ng/mL [facility] [place] Magnesium [Mass/Vol] 1.4 mg/dL Low 1.6 - 2 .3 mg/dL [facility] [place] Troponin I.cardiac [Mass/Vol] ng/mL NINF - 0.034 ng/mL [facility] [place] Average glucose Estimated from glycated hemoglobin (Bld) [Mass/Vol] 91 mg/dL [facility] [place] Troponin I.cardiac [Mass/Vol] ng/mL NINF - 0.034 ng/mL [facility] [place] Laboratory - Drug toxicology Ordered By: Rachel Almanza on 04-17-2023 Amphetamines Screen method >1000 ng/mL Ql (U) Negative [facility] Barbiturates Screen method >200 ng/mL Ql (U) Positive [facility] [place] Benzodiazepines Ql (U) Negative [facility] Methadone Screen Ql (U) Positive [facility] Opiates Screen Ql (U) Positive [facility] oxyCODONE Ql (U) Negative [facility] alth Phencyclidine Ql (U) Negative [facility] Laboratory - Hematology and Cell countson 04-17-2023 HbA1c (Bld) [Mass fraction] 4.8 % NINF - 5.7 % [facility] [place] Comment on above: Normal less than 5.7 % Prediabetes 5.7% to 6.4% Diabetes 6.5% or higher --HgbA1C levels may not be accurate in patients who have renal disease, received recent blood transfusions, are anemic, or who have dyshemoglobinemia. Laboratory - Microbiology an d Antimicrobial susceptibilityOrdered By: Salina Greenberg on 04-17-2023 Bacteria identified Aer cx Nom (Lower resp) Culture canceled due to poor specimen quality. Recollect if clinically indicated. [facility] Lipid 1996 panelon 3 Cholesterol [Mass/Vol] 207 mg/dL High NINF - 200 mg/dL [facility] [place] Cholesterol in HDL [Mass/Vol] 84 mg/dL High 40 - 60 mg/dL [facility] [place] Cholesterol in LDL [Mass/Vol] 102 mg/dL High 0 - <100 [facility] [place] Cholesterol.total/Namita sterol in HDL [Mass ratio] 2 {ratio} [facility] [place] Comment on above: Ref Range: < 3 Low Risk for CHD 3-6 Mod Risk for CHD > 6 High Risk for CHD Interpretation and review of laboratory results Abnormal [facility] Triglyceride [Mass/Vol] 107 mg/dL NINF - 150 mg/dL [facility] Magnesium [Mass/Vol]on 04-17 Interpretation and review of laboratory results Abnormal [facility] Manual differential performe d Ql (Bld)Ordered By: Christian Estrada on 04-17-2023 Anisocytosis Ql (Bld) Slight Abnormal (none) [facility] Cells Counted Total (Bld) [#] 100 {cells} [facility] Differential Method Automated differential reported after manual slide review [facility] Interpretation and review of laboratory results Abnormal [facility] Leukocyte morphology finding Nom (Bld) Normal [facility] Lymphocytes (Bld) [#/Vol] 2.5 10*3/uL 1.0 - 4.3 10*3/uL [facility] Lymphocytes Manual 33 [facility] Lymphocytes/100 WBC (Bld) 33 % 20 - 40 % [facility] Macrocytes Ql (Bld) Slight Abnormal (none) [facility] [place] Monocytes (Bld) [#/Vol] 0.7 10*3/uL 0.0 - 0.8 10*3/uL [facility] [place] Monocytes Manual [address] [facility] alth Monocytes/100 WBC (Bld) 9 % 2 - 10 % [facility] Neutrophils (Bld) [#/Vol] 4.4 10*3/uL 1.8 - 7.0 10*3/uL [facility] Neutrophils Manual 58 [facility] Ovalocytes LM Ql (Bld) Slight Abnormal (none) [facility] Platelet morphology finding Nom (Bld) Normal [facility] Poikilocytosis LM Ql (Bld) Slight Abnormal (none) [facility] Segmented neutrophils/100 WBC (Bld) 58 % 40 - 80 % [facility] WBC corrected for nucl RBC (Bld) [#/Vol] 7.6 10*3/uL 3.6 - 10.7 10*3/uL [facility] No Panel InformationOrdered By: Rachel Almanza on 04-17-2023 COCAINE METAB. SCREEN Negative [facility] The expected value for all of the drugs listed above is Negative. The following drugs or drug groups have been screened for by Immunoassay at the following thresholds: Amphetamine class (1000 ng/mL) Barbiturates (200 ng/mL) Benzodiazepines (200 ng/mL) Cocaine (300 ng/mL) Methadone (300 ng/mL) Opiates (300 ng/mL) Oxycodone (100 ng/mL) PCP (25 ng/mL) NOTE: These results are for medical treatment only. Analysis performed using non-forensic procedures. POSITIVE results are NOT confirmed by a more specific alternative method unless requested. If confirmation is needed, request confirmation under separate order. [facility] No Panel InformationOrdered By: Juana Mon on 04-17-2023 Interpretation and review of laboratory results Normal [facility] Legionella pneumophila Ag Not detected Not Detected [facility] Streptococcus pneumoniae Ag Not detected Not Detected [facility] Methodology: Lateral flow enzyme immunoassay This assay is approved for detection of antigens to Streptococcus pneumoniae and Legionella pneumophila serogroup 1; however, other L. pneumophila serogroups may also be detected. [facility] No Panel Informationon 04-17 [facility] Procalcitonin [Mass/Vol]on 1 Interpretation and review of laboratory results Abnormal [facility] [place] PCT <0.50 = Low risk of severe sepsis and/or septic shock. PCT >2.00 = High risk of severe sepsis and/or septic shock. [facility] Troponin I.cardiac [Mass/Vol ]on 04-17-2023 Interpretation and review of laboratory results Normal [facility] [place] Patients with high levels of Biotin oral intake (ie >5 mg/day) may have falsely decreased Troponin levels. [facility] Interpretation and review of laboratory results Normal [facility] [place] Patients with high levels of Biotin oral intake (ie >5 mg/day) may have falsely decreased Troponin levels. [facility] Interpretation and review of laboratory results Normal [facility] [place] Slightly Hemolyzed. Interpret Troponin with caution. Patients with high levels of Biotin oral intake (ie >5 mg/day) may have falsely decreased Troponin levels. [facility] Basic metabolic 1998 panelon 04-16-2023 Anion gap [Moles/Vol] 12 mmol/L 3 - 13 mmol/L [facility] [place] Calcium [Mass/Vol] 8.2 mg/dL Low 8.4 - 10. 4 mg/dL [facility] [place] Chloride [Moles/Vol] 93 mmol/L Low 98 - 10 7 mmol/L [facility] [place] CO2 [Moles/Vol] 30 mmol/L 22 - 30 mmol/L [facility] [place] Creatinine [Mass/Vol] 0.73 mg/dL 0.66 - 1.25 mg/dL [facility] [place] GFR/1.73 sq M.predicted MDRD (S/P/Bld) [Vol rate/Area] - PINF [facility] [place] Comment on above: Calculation based on the Chronic Kidney Disease Epidemiology Collaboration (CKD-EPI) equation refit without adjustment for race Glucose [Mass/Vol] 95 mg/dL 70 - 100 mg/dL [facility] [place] Potassium [Moles/Vol] 5.7 mmol/L High 3.5 - 5.1 mmol/L [facility] [place] Sodium [Moles/Vol] 134 mmol/L Low 135 - 145 mmol/L [facility] [place] Urea nitrogen [Mass/Vol] 14 mg/dL 9 - 20 mg/dL [facility] [place] CBC W Auto Differential pane l (Bld)Ordered By: Monica Daily on 04-16-2023 Basophils (Bld) [#/Vol] 0.1 10*3/uL 0.0 - 0.2 10*3/uL [facility] [place] Basophils/100 WBC (Bld) 1.0 % 0.0 - 2.0 % [facility] [place] Eosinophils (Bld) [#/Vol] 0.1 10*3/uL 0.0 - 0.5 10*3/uL [facility] [place] Eosinophils/100 WBC (Bld) 0.5 % Low 1.0 - 6.0 % [facility] [place] Erythrocyte distribution width (RBC) [Ratio] 22.2 % High 11.5 - 14.5 % [facility] [place] Comment on above: Marked Anisocytosis (RDW >21.0) Moderate Poikilocytosis (few teardrop, few stomatocytes, few target cells, few ovalocytes seen / field on slide) Hematocrit (Bld) [Volume fraction] 45.0 % 40.0 - 52.0 % [facility] [place] Hemoglobin (Bld) [Mass/Vol] 15.4 g/dL 13.0 - 18.0 g/dL [facility] [place] Immature granulocytes (Bld) [#/Vol] 0.0 10*3/uL NINF - 0.0 10*3/uL [facility] [place] Immature granulocytes/100 WBC (Bld) 0.3 % High NINF - 0.0 % [facility] [place] Interpretation and review of laboratory results Abnormal [facility] [place] Lymphocytes (Bld) [#/Vol] 2.6 10*3/uL 1.0 - 4.3 10*3/uL [facility] [place] Lymphocytes/100 WBC (Bld) 25.7 % 20.0 - 40.0 % [facility] [place] MCH (RBC) [Entitic mass] 29.2 pg 26.0 - 34.0 pg [facility] [place] MCHC (RBC) [Mass/Vol] 34.2 % 32.0 - 36.0 % [facility] [place] MCV (RBC) [Entitic vol] 85.4 fL 80.0 - 98.0 fL [facility] [place] Monocytes (Bld) [#/Vol] 0.8 10*3/uL 0.0 - 0.8 10*3/uL [facility] [place] Monocytes/100 WBC (Bld) 8.3 % 2.0 - 10.0 % [facility] [place] Neutrophils (Bld) [#/Vol] 6.4 10*3/uL 1.8 - 7.0 10*3/uL [facility] [place] Neutrophils/100 WBC (Bld) 64.2 % 40.0 - 80.0 % [facility] [place] Platelet mean volume (Bld) [Entitic vol] 8.6 fL 7.4 - 12.4 fL [facility] [place] Comment on above: MPV is a calculated measurement using platelet volume ratio Platelets (Bld) [#/Vol] 335 10*3/uL 140 - 440 10*3/uL [facility] [place] RBC (Bld) [#/Vol] 5.27 10*6/uL 4.40 - 5.9 0 10*6/uL [facility] [place] WBC (Bld) [#/Vol] 10.0 10*3/uL 3.6 - 10.7 10*3/uL [facility] Ethanol (Bld) [Mass/Vol]on Ethanol [Mass/Vol] g/dL High 0.000 - 0 .010 g/dL [facility] [place] Fibrin D-dimer FEU (PPP) [Ma ss/Vol]on 04-16-2023 Interpretation and review of laboratory results Normal [facility] D-Dimer values of <0.50 mg/L FEU can be used in combination with a pre-test probability model (e.g. Well's) to exclude pulmonary embolism (PE) disease, as well as an aid in the diagnosis of deep vein thrombosis (DVT). [facility] Laboratory - Chemistry and C hemistry - challengeon 04-16-2023 Troponin I.cardiac [Mass/Vol] 0.022 ng/mL NINF - 0.034 ng/mL [facility] [place] Laboratory - Coagulationon Fibrin D-dimer FEU (PPP) [Mass/Vol] 0.42 mg/L NINF - 0.50 mg/L [facility] [place] Laboratory - Microbiology an d Antimicrobial susceptibilityon 04-16-2023 FLUAV RNA CONNOR+probe Ql (Resp) Not detected Not Detected [facility] [place] FLUBV RNA CONNOR+probe Ql (Resp) Not detected Not Detected [facility] [place] RSV RNA CONNOR+probe Ql (Resp) Not detected Not Detected [facility] [place] SARS-CoV-2 (COVID-19) RNA CONNOR+probe Ql (Resp) Not detected Not Detected [facility] SARS-CoV-2 (COVID-19) RNA CONNOR+probe Ql (Unsp spec) Methodology: real-time, RT-PCR The SARS-CoV-2, Flu A/B, and RSV Combo assay is intended for in vitro diagnostic use under the FDA Emergency Use Authorization (EUA). This test has not been FDA cleared or approved. In compliance with this authorization, please visit www.fda.gov/media/723 396/download or www.[employer].gov/media/789 984/download to access the applicable information sheets. [facility] [place] Natriuretic peptide B [Mass/ Vol]on 04-16-2023 Natriuretic peptide B (Bld) [Mass/Vol] pg/mL <20 - 100 pg/mL [facility] [place] No Panel Informationon 04-16 Interpretation and review of laboratory results Abnormal [facility] [place] Interpretation and review of laboratory results Normal [facility] P [place] 44 degrees [facility] MI Interval 160 ms [facility] [place] QRS [place] 30 degrees [facility] QRSD Interval 110 ms [facility] QT Interval 417 ms [facility] [place] QTC Interval 526 ms [facility] T Wave [place] 137 degrees [facility] EKG shows NSR, ryan l axis, normal MI and QRS intervals, prolonged QTC, no STEMI, no SVT. There is LVH. 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 Previous EKG shows NSR with old inferior VA as well - unchanged. Electronically Signed On 04-16-2023 21:44:03 EST by Marquise Falk MD - 04/16/2023 IMPRESSION: EKG shows NSR, normal axis, normal MI and QRS intervals, prolonged QTC, no STEMI, no SVT. There is LVH. 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 Previous EKG shows NSR with old inferior VA as well - unchanged. Electronically Signed On 04-16-2023 21:44:03 EST by Marquise Nair [facility] SARS-CoV-2, Flu A/B, and RSV Comboon 04-16-2023 Interpretation and review of laboratory results Normal [facility] Troponin I.cardiac [Mass/Vol ]on 04-16-2023 Patients with high levels of Biotin oral intake (ie >5 mg/day) may have falsely decreased Troponin levels. [facility] Vital signson 04-16-2023 Heart rate 95 /min bpm [facility] [place] XR Chest Single viewon 04-16 1. Mild infiltrate or atelectasis left lung base. Report Dictated on Electronically Signed By: Dev Couch MD Electronically Signed Date/Time: 04/16/2023 11:00 PM EST [facility] Patient Name: EL SMITH : 1980 Exam Date/Time: 04/16/2023 22:50 Procedure: XR CHEST 1 VIEW Ordering Provider: NAIR DOUGLAS Reason For Exam: chest pain, diffuse wheezing. PNA? smoker's cough? SINGLE FRONTAL VIEW OF THE CHEST CLINICAL INDICATION: chest pain, diffuse wheezing. PNA? smoker's cough? TECHNIQUE: Single frontal view of the chest COMPARISON: 02/01/2023 FINDINGS: Mild infiltrate or atelectasis left lung base. No vascular congestion or pleural effusion. No pneumothorax. Heart size normal. [facility] Dev Couch MD - 04/16/2023 Patient Name: EL SMITH : 1980 Exam Date/Time: 04/16/2023 22:50 Procedure: XR CHEST 1 VIEW Ordering Provider: NAIR DOUGLAS Reason For Exam: chest pain, diffuse wheezing. PNA? smoker's cough? SINGLE FRONTAL VIEW OF THE CHEST CLINICAL INDICATION: chest pain, diffuse wheezing. PNA? smoker's cough? TECHNIQUE: Single frontal view of the chest COMPARISON: 02/01/2023 FINDINGS: Mild infiltrate or atelectasis left lung base. No vascular congestion or pleural effusion. No pneumothorax. Heart size normal. IMPRESSION: 1. Mild infiltrate or atelectasis left lung base. Report Dictated on Electronically Signed By: Dev Couch MD Electronically Signed Date/Time: 04/16/2023 11:00 PM EST [facility] [place] Radiology Study observation (narrative) [facility] XR Chest Single viewOrdered By: Dev Couch on 04-16-2023 [facility] [employer] Work Phone: CBC W Auto Differential pane l (Bld)on 02-03-2023 Basophils (Bld) [#/Vol] 0.1 10*3/uL 0.0 - 0.2 10*3/uL [facility] [employer] Basophils/100 WBC (Bld) 0.4 % 0.0 - 2.0 % [facility] [employer] Eosinophils (Bld) [#/Vol] 0.1 10*3/uL 0.0 - 0.5 10*3/uL [facility] [employer] Eosinophils/100 WBC (Bld) 0.8 % Low 1.0 - 6.0 % [facility] [employer] Erythrocyte distribution width (RBC) [Ratio] 19.4 % High 11.5 - 14.5 % [facility] [employer] Hematocrit (Bld) [Volume fraction] 42.5 % 40.0 - 52.0 % [facility] [employer] Hemoglobin (Bld) [Mass/Vol] 13.7 g/dL 13.0 - 18.0 g/dL [facility] [employer] Interpretation and review of laboratory results Abnormal [facility] [employer] Lymphocytes (Bld) [#/Vol] 3.0 10*3/uL 1.0 - 4.3 10*3/uL [facility] [employer] Lymphocytes/100 WBC (Bld) 20.1 % 20.0 - 40.0 % [facility] [employer] MCH (RBC) [Entitic mass] 26.8 pg 26.0 - 34.0 pg [facility] [employer] MCHC (RBC) [Mass/Vol] 32.3 % 32.0 - 36.0 % [facility] [employer] MCV (RBC) [Entitic vol] 83.1 fL 80.0 - 98.0 fL [facility] [employer] Monocytes (Bld) [#/Vol] 0.9 10*3/uL High 0.0 - 0.8 10*3/uL [facility] [place] Monocytes/100 WBC (Bld) 6.3 % 2.0 - 10.0 % [facility] [place] Neutrophils (Bld) [#/Vol] 10.8 10*3/uL High 1.8 - 7.0 10*3/uL [facility] [place] Neutrophils/100 WBC (Bld) 72.4 % 40.0 - 80.0 % [facility] [place] Nucleated RBC/100 WBC (Bld) [Ratio] 0.1 % [facility] [place] Platelet mean volume (Bld) [Entitic vol] 7.0 fL Low 7.4 - 12.4 fL [facility] [place] Platelets (Bld) [#/Vol] 479 10*3/uL High 140 - 440 10*3/uL [facility] [place] RBC (Bld) [#/Vol] 5.12 10*6/uL 4.40 - 5.9 0 10*6/uL [facility] [place] WBC (Bld) [#/Vol] 14.9 10*3/uL High 3.6 - 10.7 10*3/uL [facility] Comprehensive metabolic 1998 panelon 02-03-2023 Albumin [Mass/Vol] 3.3 g/dL Low 3.5 - 5.0 g/dL [facility] [place] ALP [Catalytic activity/Vol] 94 U/L 38 - 126 U/L [facility] [place] ALT [Catalytic activity/Vol] 15 U/L 0 - 49 U/L [facility] [place] Anion gap [Moles/Vol] 2 mmol/L Low 3 - 13 mmol/L [facility] [place] AST [Catalytic activity/Vol] 49 U/L High 15 - 46 U/L [facility] [place] Bilirubin [Mass/Vol] 0.5 mg/dL 0.2 - 1 .3 mg/dL [facility] [place] Calcium [Mass/Vol] 8.3 mg/dL Low 8.4 - 10. 4 mg/dL [facility] [place] Chloride [Moles/Vol] 100 mmol/L 98 - 10 7 mmol/L [facility] [place] CO2 [Moles/Vol] 30 mmol/L 22 - 30 mmol/L [facility] [place] Creatinine [Mass/Vol] 0.64 mg/dL Low 0.66 - 1.25 mg/dL [facility] [place] GFR/1.73 sq M.predicted MDRD (S/P/Bld) [Vol rate/Area] - PINF [facility] [place] Comment on above: Calculation based on the Chronic Kidney Disease Epidemiology Collaboration (CKD-EPI) equation refit without adjustment for race Glucose [Mass/Vol] 98 mg/dL 70 - 100 mg/dL [facility] [place] Interpretation and review of laboratory results Abnormal [facility] [place] Potassium [Moles/Vol] 4.1 mmol/L 3.5 - 5.1 mmol/L [facility] [place] Protein [Mass/Vol] 6.5 g/dL 6.3 - 8.2 g/dL [facility] [place] Sodium [Moles/Vol] 132 mmol/L Low 135 - 145 mmol/L [facility] [place] Urea nitrogen [Mass/Vol] 25 mg/dL High 9 - 20 mg/dL [facility] [place] Slightly hemolyzed [facility] [place] Magnesiumon 02-03-2023 Magnesium [Mass/Vol] 2.0 mg/dL 1.6 - 2 .3 mg/dL [facility] [place] No Panel Informationon 02-03 Interpretation and review of laboratory results Normal [facility] Phosphate [Moles/Vol]on 01-16 Phosphate [Mass/Vol] 4.4 mg/dL 2.5 - 4 .5 mg/dL [facility] [place] CBC W Auto Differential pane l (Bld)on 02-02-2023 Basophils (Bld) [#/Vol] 0.0 10*3/uL 0.0 - 0.2 10*3/uL [facility] [place] Basophils/100 WBC (Bld) 0.3 % 0.0 - 2.0 % [facility] [place] Eosinophils (Bld) [#/Vol] 0.0 10*3/uL 0.0 - 0.5 10*3/uL [facility] [place] Eosinophils/100 WBC (Bld) 0.2 % Low 1.0 - 6.0 % [facility] [place] Erythrocyte distribution width (RBC) [Ratio] 19.1 % High 11.5 - 14.5 % [facility] [place] Hematocrit (Bld) [Volume fraction] 39.7 % Low 40.0 - 52.0 % [facility] [place] Hemoglobin (Bld) [Mass/Vol] 12.6 g/dL Low 13.0 - 18.0 g/dL [facility] [place] Interpretation and review of laboratory results Abnormal [facility] [place] Lymphocytes (Bld) [#/Vol] 0.9 10*3/uL Low 1.0 - 4.3 10*3/uL [facility] [place] Lymphocytes/100 WBC (Bld) 7.7 % Low 20.0 - 40.0 % [facility] [place] MCH (RBC) [Entitic mass] 26.7 pg 26.0 - 34.0 pg [facility] [place] MCHC (RBC) [Mass/Vol] 31.8 % Low 32.0 - 36.0 % [facility] [place] MCV (RBC) [Entitic vol] 84.0 fL 80.0 - 98.0 fL [facility] [place] Monocytes (Bld) [#/Vol] 0.7 10*3/uL 0.0 - 0.8 10*3/uL [facility] [place] Monocytes/100 WBC (Bld) 6.5 % 2.0 - 10.0 % [facility] [place] Neutrophils (Bld) [#/Vol] 9.7 10*3/uL High 1.8 - 7.0 10*3/uL [facility] [place] Neutrophils/100 WBC (Bld) 85.3 % High 40.0 - 80.0 % [facility] [place] Nucleated RBC/100 WBC (Bld) [Ratio] 0.0 % [facility] [place] Platelet mean volume (Bld) [Entitic vol] 7.1 fL Low 7.4 - 12.4 fL [facility] [place] Platelets (Bld) [#/Vol] 367 10*3/uL 140 - 440 10*3/uL [facility] [place] RBC (Bld) [#/Vol] 4.73 10*6/uL 4.40 - 5.9 0 10*6/uL [facility] [place] WBC (Bld) [#/Vol] 11.4 10*3/uL High 3.6 - 10.7 10*3/uL [facility] Comprehensive metabolic 1998 panelon 02-02-2023 Albumin [Mass/Vol] 3.1 g/dL Low 3.5 - 5.0 g/dL [facility] [place] ALP [Catalytic activity/Vol] 110 U/L 38 - 126 U/L [facility] [place] ALT [Catalytic activity/Vol] 15 U/L 0 - 49 U/L [facility] [place] Anion gap [Moles/Vol] 3 mmol/L 3 - 13 mmol/L [facility] [place] AST [Catalytic activity/Vol] 31 U/L 15 - 46 U/L [facility] [place] Bilirubin [Mass/Vol] 0.3 mg/dL 0.2 - 1 .3 mg/dL [employer] Calcium [Mass/Vol] 8.1 mg/dL Low 8.4 - 10. 4 mg/dL [employer] Chloride [Moles/Vol] 101 mmol/L 98 - 10 7 mmol/L [facility] [employer] CO2 [Moles/Vol] 27 mmol/L 22 - 30 mmol/L [facility] [employer] Creatinine [Mass/Vol] 0.52 mg/dL Low 0.66 - 1.25 mg/dL [employer] GFR/1.73 sq M.predicted MDRD (S/P/Bld) [Vol rate/Area] - PINF [facility] [employer] Comment on above: Calculation based on the Chronic Kidney Disease Epidemiology Collaboration (CKD-EPI) equation refit without adjustment for race Glucose [Mass/Vol] 121 mg/dL High 70 - 100 mg/dL [facility] [employer] Interpretation and review of laboratory results Abnormal [facility] [employer] Potassium [Moles/Vol] 4.6 mmol/L 3.5 - 5.1 mmol/L [facility] [employer] Protein [Mass/Vol] 6.3 g/dL 6.3 - 8.2 g/dL [facility] [employer] Sodium [Moles/Vol] 130 mmol/L Low 135 - 145 mmol/L [facility] [employer] Urea nitrogen [Mass/Vol] 21 mg/dL High 9 - 20 mg/dL [facility] [employer] ECG 12 leadOrdered By: Yvonne Marie on 02-02-2023 Heart rate 87 /min bpm [employer] Work Phone: P [place] 34 degrees [employer] Work Phone: MI Interval 160 ms [employer] Work Phone: QRS [place] 15 degrees [employer] Work Phone: QRSD Interval 112 ms [employer] Work Phone: QT Interval 404 ms [employer] Work Phone: QTC Interval 486 ms [employer] Work Phone: T Wave [place] 20 degrees [employer] Work Phone: [employer] Work Phone: ECG 12 leadon 02-02-2023 SINUS RHYTHM LEFT VENTRICULAR HYPERTROPHY Electronically Signed On 02-02-2023 12:19:40 EDT by Adam Cartwright MD - 02/02/2023 IMPRESSION: SINUS RHYTHM LEFT VENTRICULAR HYPERTROPHY Electronically Signed On 02-02-2023 12:19:40 EDT by Adam Marie [facility] Magnesiumon 02-02-2023 Magnesium [Mass/Vol] 2.1 mg/dL 1.6 - 2 .3 mg/dL [facility] [place] No Panel Informationon 02-02 [facility] [place] Interpretation and review of laboratory results Normal [facility] Phosphate [Moles/Vol]on 01-16 Phosphate [Mass/Vol] 3.6 mg/dL 2.5 - 4 .5 mg/dL [facility] [place] ANAOrdered By: Lowell Valerio on 02-01-2023 ESTER Pattern [facility] ESTER Titer [facility] TESTED BY INDIRECT IMMUNOFLUORESCENCE ASSAY (IFA) [facility] Anti-neutrophilic cytoplasmi c antibodyon 02-01-2023 C-ANCA Not detected Not Detected [facility] Interpretation and review of laboratory results Normal [facility] P-ANCA Not detected Not Detected [facility] Bacteria identified Aer cx N om (Lower resp)Ordered By: Salina Greenberg on 02-01-2023 Gram Stain Result Moderate Polymorphonuclear leukocytes per low power field Abnormal [facility] Gram Stain Result Few Epithelial cells per low power field Abnormal [facility] Gram Stain Result Positive Abnormal [facility] Gram Stain Result Negative Abnormal [facility] Interpretation and review of laboratory results Abnormal [facility] CBC W Auto Differential pane l (Bld)Ordered By: Erlin Quintana on 02-01-2023 Basophils (Bld) [#/Vol] 0.0 10*3/uL 0.0 - 0.2 10*3/uL [facility] [place] Basophils/100 WBC (Bld) 0.2 % 0.0 - 2.0 % [facility] [place] Eosinophils (Bld) [#/Vol] 0.0 10*3/uL 0.0 - 0.5 10*3/uL [facility] Eosinophils/100 WBC (Bld) 0.1 % Low 1.0 - 6.0 % [facility] Erythrocyte distribution width (RBC) [Ratio] 18.9 % High 11.5 - 14.5 % [facility] [place] Hematocrit (Bld) [Volume fraction] 38.7 % Low 40.0 - 52.0 % [facility] Hemoglobin (Bld) [Mass/Vol] 12.5 g/dL Low 13.0 - 18.0 g/dL [facility] [place] Interpretation and review of laboratory results Abnormal [facility] Lymphocytes (Bld) [#/Vol] 0.5 10*3/uL Low 1.0 - 4.3 10*3/uL [facility] [place] Lymphocytes/100 WBC (Bld) 3.4 % Low 20.0 - 40.0 % [facility] [place] MCH (RBC) [Entitic mass] 26.7 pg 26.0 - 34.0 pg [facility] [place] MCHC (RBC) [Mass/Vol] 32.1 % 32.0 - 36.0 % [facility] [place] MCV (RBC) [Entitic vol] 83.1 fL 80.0 - 98.0 fL [facility] [place] Monocytes (Bld) [#/Vol] 0.5 10*3/uL 0.0 - 0.8 10*3/uL [facility] [place] Monocytes/100 WBC (Bld) 3.3 % 2.0 - 10.0 % [facility] Neutrophils (Bld) [#/Vol] 12.9 10*3/uL High 1.8 - 7.0 10*3/uL [facility] [place] Neutrophils/100 WBC (Bld) 93.0 % High 40.0 - 80.0 % [facility] [place] Nucleated RBC/100 WBC (Bld) [Ratio] 0.0 % [facility] Platelet mean volume (Bld) [Entitic vol] 7.0 fL Low 7.4 - 12.4 fL [facility] [place] Platelets (Bld) [#/Vol] 367 10*3/uL 140 - 440 10*3/uL [facility] RBC (Bld) [#/Vol] 4.66 10*6/uL 4.40 - 5.9 0 10*6/uL [facility] [place] WBC (Bld) [#/Vol] 13.9 10*3/uL High 3.6 - 10.7 10*3/uL [facility] Comprehensive metabolic 1998 panelon 02-01-2023 Albumin [Mass/Vol] 3.2 g/dL Low 3.5 - 5.0 g/dL [facility] [place] ALP [Catalytic activity/Vol] 120 U/L 38 - 126 U/L [facility] [place] ALT [Catalytic activity/Vol] 15 U/L 0 - 49 U/L [facility] [place] Anion gap [Moles/Vol] 4 mmol/L 3 - 13 mmol/L [facility] [place] AST [Catalytic activity/Vol] 26 U/L 15 - 46 U/L [facility] [place] Bilirubin [Mass/Vol] 0.2 mg/dL 0.2 - 1 .3 mg/dL [facility] [place] Calcium [Mass/Vol] 8.3 mg/dL Low 8.4 - 10. 4 mg/dL [facility] [place] Chloride [Moles/Vol] 100 mmol/L 98 - 10 7 mmol/L [facility] [place] CO2 [Moles/Vol] 30 mmol/L 22 - 30 mmol/L [facility] [place] Creatinine [Mass/Vol] 0.47 mg/dL Low 0.66 - 1.25 mg/dL [facility] [place] GFR/1.73 sq M.predicted MDRD (S/P/Bld) [Vol rate/Area] - PINF [facility] [place] Comment on above: Calculation based on the Chronic Kidney Disease Epidemiology Collaboration (CKD-EPI) equation refit without adjustment for race Glucose [Mass/Vol] 142 mg/dL High 70 - 100 mg/dL [facility] [place] Interpretation and review of laboratory results Abnormal [facility] [place] Potassium [Moles/Vol] 4.0 mmol/L 3.5 - 5.1 mmol/L [facility] [place] Protein [Mass/Vol] 6.5 g/dL 6.3 - 8.2 g/dL [facility] [place] Sodium [Moles/Vol] 134 mmol/L Low 135 - 145 mmol/L [facility] [place] Urea nitrogen [Mass/Vol] 23 mg/dL High 9 - 20 mg/dL [facility] [place] Magnesiumon 02-01-2023 Magnesium [Mass/Vol] 2.3 mg/dL 1.6 - 2 .3 mg/dL [facility] [place] No Panel Informationon 02-01 Interpretation and review of laboratory results Normal [facility] Phosphate [Moles/Vol]on 01-16 Phosphate [Mass/Vol] 3.2 mg/dL 2.5 - 4 .5 mg/dL [facility] [place] Procalcitonin Teston 023 Procalcitonin [Mass/Vol] 1.16 ng/mL High 0.00 - 0.09 ng/mL [facility] [place] Procalcitonin [Mass/Vol]on 1 Interpretation and review of laboratory results Abnormal [facility] [place] PCT <0.50 = Low risk of severe sepsis and/or septic shock. PCT >2.00 = High risk of severe sepsis and/or septic shock. [facility] Respiratory culture and Stai nOrdered By: Salina Greenberg on 02-01-2023 Bacteria identified Aer cx Nom (Lower resp) Few respiratory mack present. [facility] [place] XR Chest Single viewon 02-01 Patient Name: EL SMITH : 1980 Exam Date/Time: 02/01/2023 14:03 Procedure: XR CHEST 1 VIEW Ordering Provider: MONTALVO MICHAEL Reason For Exam: DYSPNEA CHEST (Frontal View) History: Dyspnea Comparison: 01/30/2023 Findings: Frontal chest view shows diffuse patchy infiltrates/edema throughout both lungs that have increased in the upper lungs but slightly decreased in the bases compared to last exam. The lungs are also congested and the heart is enlarged. There is no mediastinal widening, sizable pleural effusion, or other significant interval change. Report Dictated on Electronically Signed By: Parris Carty MD Electronically Signed Date/Time: 02/01/2023 2:18 PM T [facility] Parris Carty MD - 02/01/2023 Patient Name: EL SMITH : 1980 Exam Date/Time: 02/01/2023 14:03 Procedure: XR CHEST 1 VIEW Ordering Provider: MONTALVO MICHAEL Reason For Exam: DYSPNEA CHEST (Frontal View) History: Dyspnea Comparison: 01/30/2023 Findings: Frontal chest view shows diffuse patchy infiltrates/edema throughout both lungs that have increased in the upper lungs but slightly decreased in the bases compared to last exam. The lungs are also congested and the heart is enlarged. There is no mediastinal widening, sizable pleural effusion, or other significant interval change. Report Dictated on Electronically Signed By: Parris Carty MD Electronically Signed Date/Time: 02/01/2023 2:18 PM EDT [facility] [place] Radiology Study observation (narrative) [facility] XR Chest Single viewOrdered By: Parris Carty on 02-01-2023 [facility] [employer] Work Phone: CBC W Auto Differential pane l (Bld)Ordered By: Willian Oliveros on 01-31-2023 Basophils (Bld) [#/Vol] 0.0 10*3/uL 0.0 - 0.2 10*3/uL [facility] [employer] Basophils/100 WBC (Bld) 0.2 % 0.0 - 2.0 % [facility] [employer] Eosinophils (Bld) [#/Vol] 0.0 10*3/uL 0.0 - 0.5 10*3/uL [facility] [employer] Eosinophils/100 WBC (Bld) 0.3 % Low 1.0 - 6.0 % [facility] [employer] Erythrocyte distribution width (RBC) [Ratio] 19.5 % High 11.5 - 14.5 % [facility] [employer] Hematocrit (Bld) [Volume fraction] 39.3 % Low 40.0 - 52.0 % [facility] [employer] Hemoglobin (Bld) [Mass/Vol] 12.5 g/dL Low 13.0 - 18.0 g/dL [facility] [employer] Interpretation and review of laboratory results Abnormal [facility] [employer] Lymphocytes (Bld) [#/Vol] 0.4 10*3/uL Low 1.0 - 4.3 10*3/uL [facility] [employer] Lymphocytes/100 WBC (Bld) 3.6 % Low 20.0 - 40.0 % [facility] [employer] MCH (RBC) [Entitic mass] 26.7 pg 26.0 - 34.0 pg [facility] [employer] MCHC (RBC) [Mass/Vol] 31.7 % Low 32.0 - 36.0 % [facility] [employer] MCV (RBC) [Entitic vol] 84.0 fL 80.0 - 98.0 fL [facility] [employer] Monocytes (Bld) [#/Vol] 0.4 10*3/uL 0.0 - 0.8 10*3/uL [facility] Monocytes/100 WBC (Bld) 3.6 % 2.0 - 10.0 % [facility] [place] Neutrophils (Bld) [#/Vol] 10.6 10*3/uL High 1.8 - 7.0 10*3/uL [facility] [place] Neutrophils/100 WBC (Bld) 92.3 % High 40.0 - 80.0 % [facility] [place] Nucleated RBC/100 WBC (Bld) [Ratio] 0.0 % [facility] [place] Platelet mean volume (Bld) [Entitic vol] 7.1 fL Low 7.4 - 12.4 fL [facility] [place] Platelets (Bld) [#/Vol] 349 10*3/uL 140 - 440 10*3/uL [facility] [place] RBC (Bld) [#/Vol] 4.68 10*6/uL 4.40 - 5.9 0 10*6/uL [facility] [place] WBC (Bld) [#/Vol] 11.5 10*3/uL High 3.6 - 10.7 10*3/uL [facility] Comprehensive metabolic 1998 panelon 01-31-2023 Albumin [Mass/Vol] 3.2 g/dL Low 3.5 - 5.0 g/dL [facility] [place] ALP [Catalytic activity/Vol] 124 U/L 38 - 126 U/L [facility] [place] ALT [Catalytic activity/Vol] 15 U/L 0 - 49 U/L [facility] [place] Anion gap [Moles/Vol] 2 mmol/L Low 3 - 13 mmol/L [facility] [place] AST [Catalytic activity/Vol] 23 U/L 15 - 46 U/L [facility] [place] Bilirubin [Mass/Vol] 0.3 mg/dL 0.2 - 1 .3 mg/dL [facility] [place] Calcium [Mass/Vol] 8.2 mg/dL Low 8.4 - 10. 4 mg/dL [facility] [place] Chloride [Moles/Vol] 99 mmol/L 98 - 10 7 mmol/L [facility] [place] CO2 [Moles/Vol] 33 mmol/L High 22 - 30 mmol/L [facility] [place] Creatinine [Mass/Vol] 0.49 mg/dL Low 0.66 - 1.25 mg/dL [facility] [place] GFR/1.73 sq M.predicted MDRD (S/P/Bld) [Vol rate/Area] - PINF [facility] [place] Comment on above: Calculation based on the Chronic Kidney Disease Epidemiology Collaboration (CKD-EPI) equation refit without adjustment for race Glucose [Mass/Vol] 164 mg/dL High 70 - 100 mg/dL [facility] [place] Potassium [Moles/Vol] 3.9 mmol/L 3.5 - 5.1 mmol/L [facility] [place] Protein [Mass/Vol] 6.3 g/dL 6.3 - 8.2 g/dL [facility] [place] Sodium [Moles/Vol] 134 mmol/L Low 135 - 145 mmol/L [facility] [place] Urea nitrogen [Mass/Vol] 27 mg/dL High 9 - 20 mg/dL [facility] [place] HIV 1+2 Ab+HIV1 p24 Ag IA Ql on 01-31-2023 Interpretation and review of laboratory results Normal [facility] HIV-1 and HIV-2 Antigen-Anti body Screenon 01-31-2023 HIV 1+2 Ab+HIV1 p24 Ag IA Ql Non-Reactive Nonreactive [facility] [place] Comment on above: The specimen was non -reactive for HIV-1 and HIV-2 antibodies and p24 antigen using an FDA-cleared 4th generation HIV test. Based on this non-reactive screen result, further reflexive testing was not indicated and was, therefore, not performed. Magnesiumon 01-31-2023 Magnesium [Mass/Vol] 2.7 mg/dL High 1.6 - 2 .3 mg/dL [facility] [place] No Panel Informationon 01-31 Interpretation and review of laboratory results Abnormal [facility] POCT arterial blood gason Base excess Calc (Bld) [Moles/Vol] 4.0 mmol/L High -3.0 - 3.0 mmol/L [facility] [place] CO2 (Bld) [Partial pressure] 40.8 mm[Hg] [facility] [place] CO2 [Moles/Vol] 29.7 mmol/L High 23.0 - 27.0 mmol/L [facility] [place] FIO2 50 [facility] [place] Comment on above: Performed by [facility] ID : [id number] [place], [place] ?Device: [id number] Mva Still Operator ID: [id number] HCO3 (Bld) [Moles/Vol] 28.4 mmol/L High 21.0 - 25.0 mmol/L [facility] [place] Interpretation and review of laboratory results Abnormal [facility] [place] Oxygen (Bld) [Partial pressure] 71.5 mm[Hg] Low [facility] pH (Bld) 7.450 [pH] 7.350 - 7.450 pH [facility] Performed by: [facility], [address] [place] [id number] CLIA ID: [id number] [facility] Phosphate [Moles/Vol]on 01-16 Interpretation and review of laboratory results Normal [facility] [place] Phosphate [Mass/Vol] 2.9 mg/dL 2.5 - 4 .5 mg/dL [facility] [place] Vancomycin, randomon 023 Interpretation and review of laboratory results Abnormal [facility] [place] Vancomycin [Mass/Vol] 24.0 ug/mL High 15.0 - 20.0 ug/mL [facility] C-reactive proteinon 023 CRP [Mass/Vol] 77.0 mg/L High NINF - 10.0 mg/L [facility] [place] CBC W Auto Differential pane l (Bld)Ordered By: Kelly Cárdenas on 01-30-2023 Basophils (Bld) [#/Vol] 0.0 10*3/uL 0.0 - 0.2 10*3/uL [facility] [place] Basophils/100 WBC (Bld) 0.3 % 0.0 - 2.0 % [facility] [place] Eosinophils (Bld) [#/Vol] 0.0 10*3/uL 0.0 - 0.5 10*3/uL [facility] [place] Eosinophils/100 WBC (Bld) 0.0 % Low 1.0 - 6.0 % [facility] [place] Erythrocyte distribution width (RBC) [Ratio] 18.9 % High 11.5 - 14.5 % [facility] [place] Hematocrit (Bld) [Volume fraction] 37.2 % Low 40.0 - 52.0 % [facility] [place] Hemoglobin (Bld) [Mass/Vol] 12.0 g/dL Low 13.0 - 18.0 g/dL [facility] [place] Interpretation and review of laboratory results Abnormal [facility] [place] Lymphocytes (Bld) [#/Vol] 0.5 10*3/uL Low 1.0 - 4.3 10*3/uL [facility] [place] Lymphocytes/100 WBC (Bld) 5.2 % Low 20.0 - 40.0 % [facility] [place] MCH (RBC) [Entitic mass] 27.3 pg 26.0 - 34.0 pg [facility] [place] MCHC (RBC) [Mass/Vol] 32.4 % 32.0 - 36.0 % [facility] [place] MCV (RBC) [Entitic vol] 84.5 fL 80.0 - 98.0 fL [facility] [place] Monocytes (Bld) [#/Vol] 0.2 10*3/uL 0.0 - 0.8 10*3/uL [facility] [place] Monocytes/100 WBC (Bld) 2.3 % 2.0 - 10.0 % [facility] [place] Neutrophils (Bld) [#/Vol] 9.6 10*3/uL High 1.8 - 7.0 10*3/uL [facility] [place] Neutrophils/100 WBC (Bld) 92.2 % High 40.0 - 80.0 % [facility] [place] Nucleated RBC/100 WBC (Bld) [Ratio] 0.2 % [facility] [place] Platelet mean volume (Bld) [Entitic vol] 7.1 fL Low 7.4 - 12.4 fL [facility] [place] Platelets (Bld) [#/Vol] 328 10*3/uL 140 - 440 10*3/uL [facility] [place] RBC (Bld) [#/Vol] 4.40 10*6/uL 4.40 - 5.9 0 10*6/uL [facility] [place] WBC (Bld) [#/Vol] 10.4 10*3/uL 3.6 - 10.7 10*3/uL [facility] CRP [Mass/Vol]on 01-30-2023 Interpretation and review of laboratory results Abnormal [facility] Comprehensive metabolic 1998 panelon 01-30-2023 Albumin [Mass/Vol] 3.3 g/dL Low 3.5 - 5.0 g/dL [facility] [place] ALP [Catalytic activity/Vol] 138 U/L High 38 - 126 U/L [facility] [place] ALT [Catalytic activity/Vol] 17 U/L 0 - 49 U/L [facility] [place] Anion gap [Moles/Vol] 0 mmol/L Low 3 - 13 mmol/L [facility] [place] AST [Catalytic activity/Vol] 39 U/L 15 - 46 U/L [facility] [place] Bilirubin [Mass/Vol] 0.4 mg/dL 0.2 - 1 .3 mg/dL [facility] [place] Calcium [Mass/Vol] 8.0 mg/dL Low 8.4 - 10. 4 mg/dL [facility] [place] Chloride [Moles/Vol] 102 mmol/L 98 - 10 7 mmol/L [facility] [place] CO2 [Moles/Vol] 31 mmol/L High 22 - 30 mmol/L [facility] [place] Creatinine [Mass/Vol] 0.63 mg/dL Low 0.66 - 1.25 mg/dL [facility] [place] GFR/1.73 sq M.predicted MDRD (S/P/Bld) [Vol rate/Area] - PINF [facility] [place] Comment on above: Calculation based on the Chronic Kidney Disease Epidemiology Collaboration (CKD-EPI) equation refit without adjustment for race Glucose [Mass/Vol] 171 mg/dL High 70 - 100 mg/dL [facility] [place] Potassium [Moles/Vol] 3.6 mmol/L 3.5 - 5.1 mmol/L [facility] [place] Protein [Mass/Vol] 6.7 g/dL 6.3 - 8.2 g/dL [facility] [place] Sodium [Moles/Vol] 133 mmol/L Low 135 - 145 mmol/L [facility] [place] Urea nitrogen [Mass/Vol] 16 mg/dL 9 - 20 mg/dL [facility] [place] ESR (Bld) [Velocity]on 01-30 Interpretation and review of laboratory results Abnormal [facility] Hepatitis 1996 panel (S)on HAV IgM IA Ql Not detected Not Detected [facility] ealt HBV core IgM IA Ql Not detected Not Detected [facility] HBV surface Ag IA Ql Not detected Not Detected [facility] HCV Ab IA Ql Not detected Not Detected [facility] Comment on above: Patients with DETECT ED Hepatitis C Ab results should have a new specimen submitted for supplemental testing with a Hepatitis C Quantitative RNA assay (viral load), if clinically indicated. Interpretation and review of laboratory results Normal [facility] LDH Lactate to pyruvate reac tion [Catalytic activity/Vol]on 01-30-2023 Interpretation and review of laboratory results Abnormal [facility] Lactate dehydrogenaseon 01-16 LDH Lactate to pyruvate reaction [Catalytic activity/Vol] 842 U/L High 120 - 246 U/L [facility] [place] Legionella and Streptococcus Urine AntigenOrdered By: Jarad Hutchins on 01-30-2023 Interpretation and review of laboratory results Normal [facility] [place] Legionella pneumophila Ag Not detected Not Detected [facility] Streptococcus pneumoniae Ag Not detected Not Detected [facility] Methodology: Lateral flow enzyme immunoassay This assay is approved for detection of antigens to Streptococcus pneumoniae and Legionella pneumophila serogroup 1; however, other L. pneumophila serogroups may also be detected. [facility] Light Green Topon 01-30-2023 Extra Tube Hold for add-ons. [facility] Comment on above: Auto resulted. [facility] Magnesiumon 01-30-2023 Magnesium [Mass/Vol] 2.5 mg/dL High 1.6 - 2 .3 mg/dL [facility] No Panel Informationon 01-30 [facility] Interpretation and review of laboratory results Abnormal [facility] Phosphate [Moles/Vol]on 01-16 Interpretation and review of laboratory results Normal [facility] [place] Phosphate [Mass/Vol] 2.8 mg/dL 2.5 - 4 .5 mg/dL [facility] [place] Procalcitonin Teston 023 Procalcitonin [Mass/Vol] 9.53 ng/mL High 0.00 - 0.09 ng/mL [facility] [place] Procalcitonin [Mass/Vol]on Interpretation and review of laboratory results Abnormal [facility] [place] PCT <0.50 = Low risk of severe sepsis and/or septic shock. PCT >2.00 = High risk of severe sepsis and/or septic shock. [facility] [place] Respiratory pathogens DNA an d RNA panel CONNOR+non-probe (Lower resp)on 01-30-2023 Acinetobacter baumannii complex Not detected Not Detected [facility] Adenovirus Not detected Not Detected [facility] th Chlamydia pneumoniae Not detected Not Detected [facility] Enterobacter cloacae complex Not detected Not Detected [facility] Escherichia coli Not detected Not Detected [facility] FLUAV RNA CONNOR+non-probe Ql (Lower resp) Not detected Not Detected [facility] FLUBV RNA CONNOR+non-probe Ql (Lower resp) Not detected Not Detected [facility] Haemophilus influenzae Not detected Not Detecte d [facility] Human Metapneumovirus Not detected Not Detected [facility] Human Rhinovirus/Enterovirus Not detected Not Detected [facility] lt Interpretation and review of laboratory results Abnormal [facility] Klebsiella (Enterobacter) aerogenes Not detected Not Detected [facility] Klebsiella oxytoca Not detected Not Detected [facility] Klebsiella pneumoniae Not detected Not Detected [facility] [facility] [place] Legionella pneumophila Not detected Not Detecte d [facility] [place] Moraxella catarrhalis Detected Abnormal Not Detected [facility] Mycoplasma pneumoniae Not detected Not Detected [facility] [place] Parainfluenza virus Not detected Not Detected [facility] Proteus spp Not detected Not Detected [facility] Pseudomonas aeruginosa Not detected Not Detecte d [facility] [place] RSV RNA CONNOR+probe Ql (Resp) Not detected Not Detected [facility] [place] S. agalactiae Org specific cx Ql (Vag fld) Not detected Not Detected [facility] [place] SARS-CoV-2 (COVID-19) RNA CONNOR+non-probe Ql (Nph) Not detected Not Detected [facility] [place] SARS-CoV-2 (COVID-19) RNA CONNOR+probe Ql (Unsp spec) Methodology: Multiplex PCR This panel does not test for SARS-CoV-2 (Covid-19). The following antimicrobial resistance gene is reported if the appropriate organism is detected: mecA. The following antimicrobial resistance genes are reported if detected and the appropriate organisms are detected: CTX-M, IMP, KPC, NDM, OXA-48-like, and VIM. [facility] [place] Serratia marcescens Not detected Not Detected [facility] Staphylococcus aureus Not detected Not Detected [facility] [place] Streptococcus pneumoniae Not detected Not Detected [facility] [place] Streptococcus pyogenes Not detected Not Detecte d [facility] Respiratory pathogens DNA an d RNA panel CONNOR+non-probe (Nph)on 01-30-2023 Adenovirus Not detected Not Detected [facility] B. pertussis DNA CONNOR+probe Ql (Unsp spec) Not detected Not Detected [facility] [place] Bordetella parapertussis Not detected Not Detected [facility] [place] Chlamydia pneumoniae Not detected Not Detected [facility] [place] Coronavirus 229E Not detected Not Detected [facility] Coronavirus HKU1 Not detected Not Detected [facility] Coronavirus NL63 Not detected Not Detected [facility] Coronavirus OC43 Not detected Not Detected [facility] FLUAV RNA CONNOR+non-probe Ql (Nph) Not detected Not Detected [facility] [place] FLUBV RNA CONNOR+non-probe Ql (Nph) Not detected Not Detected [facility] [place] Human Metapneumovirus Not detected Not Detected [facility] [place] Human Rhinovirus/Enterovirus Not detected Not Detected [facility] Interpretation and review of laboratory results Normal [facility] [place] Mycoplasma pneumoniae Not detected Not Detected [facility] [place] Parainfluenza 1 Not detected Not Detected [facility] [place] Parainfluenza 2 Not detected Not Detected [facility] [place] Parainfluenza 3 Not detected Not Detected [facility] [place] Parainfluenza 4 Not detected Not Detected [facility] [place] Respiratory Syncytial Virus Not detected Not Detected [facility] [place] SARS-CoV-2 (COVID-19) RNA CONNOR+non-probe Ql (Nph) Not detected Not Detected [facility] [place] Methodology: Multiplex PCR [facility] Sedimentation rate, automate don 01-30-2023 ESR (Bld) [Velocity] 84 mm/h High [facility] Troponin Ion 01-30-2023 Troponin I.cardiac [Mass/Vol] ng/mL NINF - 0.034 ng/mL [facility] [place] Troponin I.cardiac [Mass/Vol ]on 01-30-2023 Interpretation and review of laboratory results Normal [facility] [place] Patients with high levels of Biotin oral intake (ie >5 mg/day) may have falsely decreased Troponin levels. [facility] US Heart TransthoracicOrdere d By: Steven Rodas on 01-30-2023 Ao Root Index 1.73 cm/m2 [facility] Work Phone: Aortic Root 3.6 cm [facility] [place] Work Phone: [phone] Ascending Aorta 2.9 cm [facility] Work Phone: [phone] Ascending Aorta Index 1.39 cm/m2 [facility] [employer] Work Phone: [phone] Fractional Shortening 2D 29 % 28 - 44 % [facility] [place] Work Phone: Interpretation and review of laboratory results Abnormal [facility] [employer] Work Phone: [phone] IVSd 1.2 cm Abnormal 0.6 - 1.0 cm [facility] [place] Work Phone: [phone] LA Diameter 4.3 cm [facility] [employer] Work Phone: [phone] LA Size Index 2.07 cm/m2 [facility] Work Phone: [phone] LA/AO Root Ratio 1.19 [facility] Work Phone: LV Mass 2D 219.1 g 88 - 224 g [facility] [employer] Work Phone: [phone] LV Mass 2D Index 105.4 g/m2 49 - 115 g/m2 [facility] Work Phone: [phone] LV RWT Ratio 0.50 [facility] Work Phone: [phone] LVIDd 4.8 cm 4.2 - 5.9 cm [facility] Work Phone: [phone] LVIDd Index 2.31 cm/m2 [facility] Work Phone: [phone] LVIDs 3.4 cm [facility] Work Phone: [phone] LVIDs Index 1.63 cm/m2 [facility] Work Phone: [phone] LVOT Area 3.8 cm2 [facility] Work Phone: [phone] LVOT Diameter 2.2 cm [facility] [employer] Work Phone: [phone] LVPWd 1.2 cm Abnormal 0.6 - 1.0 cm [facility] Work Phone: [phone] [facility] [employer] Work Phone: [phone] Heart Transthoracicon Limited echo due to patient non-cooperation. Findings below via limited images. No severe abnormalities noted on this study. Left Ventricle: Left ventricle size is normal. Mildly increased wall thickness. Normal left ventricular systolic function. The EF by visual approximation is 60%. Normal wall motion. Right Ventricle: Not well visualized. Right ventricle size is normal. Normal systolic function visually. Left Ventricle Left ventricle size is normal. Mildly increased wall thickness. Normal left ventricular systolic function. The EF by visual approximation is 60%. Normal wall motion. Diastolic function not assessed. Right Ventricle Not well visualized. Right ventricle size is normal. Normal systolic function visually. Left Atrium Not well visualized. Right Atrium Not well visualized. IVC/SVC IVC was not assessed due to poor image quality. Mitral Valve Valve structure is normal. No regurgitation. No stenosis noted. Tricuspid Valve Valve structure is normal. Trace regurgitation. Aortic Valve Trileaflet. No cusp calcification. No regurgitation. No stenosis. Pulmonic Valve The pulmonic valve visualization is suboptimal but appears to be functioning normally. Trace regurgitation. Ascending Aorta Not assessed due to poor image quality. Pericardium No pericardial effusion. Septum Interatrial septum was not assessed. Pulmonary Artery Pulmonary artery was not well visualized. Study Details Image quality: good. Heart rate: 92 bpm. Blood pressure: 112/61 mmHg. Technical qualifiers: Limited study due to patient's ability to tolerate test. No contrast was given. Note:Was told to stop test after PLAX views d/t pt agitation CV CPACS Unconfirmed Drug ScreenOrder ed By: Hiwot Morrissey on 01-30-2023 Amphetamines Ql (U) Negative Negative [facility] [place] BARBITURATES Negative Negative [facility] [place] Benzodiazepines Ql (U) Negative Negative [facility] Cocaine Ql (U) Negative Negative [facility] Methadone Ql (U) Positive Negative [facility] Opiates Ql (U) Negative Negative [facility] OXYCODONE/OXYMORPHONE Negative Negative [facility] PCP Negative Negative [facility] [place] The expected value for the drugs listed above is Negative. The following drugs or drug groups have been screened for by Immunoassay at the following thresholds: Amphetamine class(1000 ng/mL) Barbiturates(200 ng/mL Benzodiazepines(200 ng/mL) Cocaine(300 ng/mL) Methadone(300 ng/mL) Opiates(300 ng/mL) Oxycodone(100 ng/mL) PCP(25 ng/mL) POSITIVE results are NOT confirmed by a more specific alternative method unless requested. If confirmation is needed, request confirmation under separate order. NOTE: These results are for medical treatment only. Analysis performed using non-forensic procedures. [facility] XR Chest Single viewon 01-30 Worsening bibasilar consolidation. Report Dictated on Electronically Signed By: Estefani Jarquin DR Electronically Signed Date/Time: 01/30/2023 5:07 AM EDT [facility] [employer] Patient Name: EL SMITH : 1980 Exam Date/Time: 01/30/2023 05:16 Procedure: XR CHEST 1 VIEW Ordering Provider: OLIVAREZ ALEXANDER Reason For Exam: respiratory failure Clinical History: respiratory failure Comparison: 01/29/2023 Technique: Single AP radiograph of the chest. Findings: Borderline cardiomegaly. Pulmonary vasculature is mildly indistinct. Patchy consolidation in the lung bases has increased from prior study. No pneumothorax . No displaced rib fractures. [facility] [employer] Estefani Jarquin MD - 01/30/2023 [facility] 1980 [id number] Exam Date/Time: 01/30/2023 05:16 Procedure: XR CHEST 1 VIEW Ordering Provider: OLIVAREZ ALEXANDER Reason For Exam: respiratory failure Clinical History: respiratory failure Comparison: 01/29/2023 Technique: Single AP radiograph of the chest. Findings: Borderline cardiomegaly. Pulmonary vasculature is mildly indistinct. Patchy consolidation in the lung bases has increased from prior study. No pneumothorax . No displaced rib fractures. IMPRESSION: Worsening bibasilar consolidation. Report Dictated on Electronically Signed By: Estefani Jarquin DR Electronically Signed Date/Time: 01/30/2023 5:07 AM EDT [facility] [place] Radiology Study observation (narrative) [facility] XR Chest Single viewOrdered By: Estefani Jarquin on 01-30-2023 [facility] [employer] Work Phone: Blood gas, venous ([place])on 01-29-2023 BASE EXCESS 6.0 mmol/L High -3.0 - 3.0 mmol/L [facility] [place] CO2 [Moles/Vol] 32.0 mmol/L High 24.0 - 28.0 mmol/L [facility] [place] HCO3 (Bld) [Moles/Vol] 30.2 mmol/L High 23.0 - 27.0 mmol/L [facility] [place] Interpretation and review of laboratory results Abnormal [facility] [place] Oxygen (Bld) [Partial pressure] 38 mm[Hg] mm(Hg) [facility] [place] Oxygen saturation in Blood 73.0 % 60.0 - 80.0 % [facility] [place] pCO2 48 [facility] [place] pH (Bld) 7.410 [pH] 7.310 - 7.410 [facility] [place] CBC W Auto Differential pane l (Bld)Ordered By: Sonali Baldwin on 01-29-2023 Basophils (Bld) [#/Vol] 0.0 10*3/uL 0.0 - 0.2 10*3/uL [facility] [place] Basophils/100 WBC (Bld) 0.1 % 0.0 - 2.0 % [facility] Eosinophils (Bld) [#/Vol] 0.1 10*3/uL 0.0 - 0.5 10*3/uL [facility] Eosinophils/100 WBC (Bld) 0.6 % Low 1.0 - 6.0 % [facility] Erythrocyte distribution width (RBC) [Ratio] 18.8 % High 11.5 - 14.5 % [facility] [place] Hematocrit (Bld) [Volume fraction] 37.2 % Low 40.0 - 52.0 % [facility] [place] Hemoglobin (Bld) [Mass/Vol] 12.1 g/dL Low 13.0 - 18.0 g/dL [facility] [place] Interpretation and review of laboratory results Abnormal [facility] Lymphocytes (Bld) [#/Vol] 0.5 10*3/uL Low 1.0 - 4.3 10*3/uL [facility] Lymphocytes/100 WBC (Bld) 3.5 % Low 20.0 - 40.0 % [facility] [place] MCH (RBC) [Entitic mass] 27.4 pg 26.0 - 34.0 pg [facility] [place] MCHC (RBC) [Mass/Vol] 32.5 % 32.0 - 36.0 % [facility] [place] MCV (RBC) [Entitic vol] 84.3 fL 80.0 - 98.0 fL [facility] Monocytes (Bld) [#/Vol] 0.2 10*3/uL 0.0 - 0.8 10*3/uL [facility] Monocytes/100 WBC (Bld) 1.6 % Low 2.0 - 10.0 % [facility] Neutrophils (Bld) [#/Vol] 13.6 10*3/uL High 1.8 - 7.0 10*3/uL [facility] Neutrophils/100 WBC (Bld) 94.2 % High 40.0 - 80.0 % [facility] Nucleated RBC/100 WBC (Bld) [Ratio] 0.1 % [facility] [employer] Platelet mean volume (Bld) [Entitic vol] 7.1 fL Low 7.4 - 12.4 fL [facility] Platelets (Bld) [#/Vol] 338 10*3/uL 140 - 440 10*3/uL [facility] RBC (Bld) [#/Vol] 4.42 10*6/uL 4.40 - 5.9 0 10*6/uL [facility] [place] WBC (Bld) [#/Vol] 14.4 10*3/uL High 3.6 - 10.7 10*3/uL [facility] CBC W Auto Differential pane l (Bld)Ordered By: Frannie Manzanares on 01-29-2023 Basophils (Bld) [#/Vol] 0.1 10*3/uL 0.0 - 0.2 10*3/uL [facility] Basophils/100 WBC (Bld) 0.3 % 0.0 - 2.0 % [facility] [place] Eosinophils (Bld) [#/Vol] 0.0 10*3/uL 0.0 - 0.5 10*3/uL [facility] Eosinophils/100 WBC (Bld) 0.1 % Low 1.0 - 6.0 % [facility] [place] Erythrocyte distribution width (RBC) [Ratio] 17.7 % High 11.5 - 14.5 % [facility] [place] Hematocrit (Bld) [Volume fraction] 41.1 % 40.0 - 52.0 % [facility] [place] Hemoglobin (Bld) [Mass/Vol] 13.3 g/dL 13.0 - 18.0 g/dL [facility] [place] Immature granulocytes (Bld) [#/Vol] 0.1 10*3/uL High NINF - 0.0 10*3/uL [facility] [place] Immature granulocytes/100 WBC (Bld) 0.7 % High NINF - 0.0 % [facility] [place] Interpretation and review of laboratory results Abnormal [facility] [place] Lymphocytes (Bld) [#/Vol] 1.6 10*3/uL 1.0 - 4.3 10*3/uL [facility] [place] Lymphocytes/100 WBC (Bld) 9.7 % Low 20.0 - 40.0 % [facility] [place] MCH (RBC) [Entitic mass] 27.8 pg 26.0 - 34.0 pg [facility] [place] MCHC (RBC) [Mass/Vol] 32.4 % 32.0 - 36.0 % [facility] [place] MCV (RBC) [Entitic vol] 85.8 fL 80.0 - 98.0 fL [facility] [place] Monocytes (Bld) [#/Vol] 0.5 10*3/uL 0.0 - 0.8 10*3/uL [facility] [place] Monocytes/100 WBC (Bld) 3.2 % 2.0 - 10.0 % [facility] [employer] Neutrophils (Bld) [#/Vol] 14.4 10*3/uL High 1.8 - 7.0 10*3/uL [facility] [employer] Neutrophils/100 WBC (Bld) 86.0 % High 40.0 - 80.0 % [facility] [employer] Platelet mean volume (Bld) [Entitic vol] 9.5 fL 7.4 - 12.4 fL [facility] [employer] Comment on above: MPV is a calculated measurement using platelet volume ratio Platelets (Bld) [#/Vol] 338 10*3/uL 140 - 440 10*3/uL [facility] [employer] RBC (Bld) [#/Vol] 4.79 10*6/uL 4.40 - 5.9 0 10*6/uL [facility] [employer] WBC (Bld) [#/Vol] 16.7 10*3/uL High 3.6 - 10.7 10*3/uL [facility] [employer] [facility] [place] CTA Chest vessels WO and Daniela linares ontrast Luca 01-29-2023 Patient Name: EL SMITH : 1980 Exam Date/Time: 01/29/2023 20:35 Procedure: CT CHEST ANGIOGRAM W AND/OR WO IV CONTRAST Ordering Provider: QUISPE ANIS Reason For Exam: Pulmonary embolism (PE) suspected, high prob CTA CHEST WITH CONTRAST CLINICAL INDICATION: Chest pain and shortness of breath TECHNIQUE: Axial CT images through the were obtained from the lung apices through the upper abdomen after a bolus tracked intravenous contrast injection over the pulmonary arteries. 75 cc of Isovue 370 contrast was given intravenously. Three-dimensional and surface-shaded reconstructions were performed by myself on a separate workstation at the time of dictation. Dose reduction was employed with automated exposure control. COMPARISON: Chest radiographs earlier the same day. CT abdomen pelvis 04/13/2021. FINDINGS: Limitations: Somewhat limited by motion artifact and suboptimal opacification of the pulmonary arteries. Heart/mediastinum: Heart size is within normal limits. Thoracic aorta and pulmonary trunk are normal in caliber. No filling defects within the pulmonary trunk, pulmonary arteries, and proximal segmental branches. More distal branches are suboptimally evaluated. Scant atherosclerotic calcifications with involvement of the coronary arteries. Multiple prominent and mildly enlarged mediastinal and perihilar lymph nodes. Lungs/pleura: Fairly extensive diffuse groundglass opacities in a basilar subpleural distribution. Borderline bronchiectasis. No pleural effusions or pneumothorax. Central tracheobronchial tree appears patent. Visualized upper abdomen: Punctate hypodensities the liver too small to definitively characterize but present on prior study to some extent. No discrete adrenal mass or nodule. Visualized spleen appears homogeneous. Osseous structures/soft tissues: Mild degenerative spondylosis in the visualized spine with Schmorl's nodes deformities. Slight age indeterminant compression fracture deformity at the approximate T4 level. Suspected fracture deformity involving the manubrium of the sternum. No suspicious axillary adenopathy. [facility] Fe Finnegan MD - 01/29/2023 Patient Name: EL SMITH : 1980 Exam Date/Time: 01/29/2023 20:35 Procedure: CT CHEST ANGIOGRAM W AND/OR WO IV CONTRAST Ordering Provider: QUISPE ANIS Reason For Exam: Pulmonary embolism (PE) suspected, high prob CTA CHEST WITH CONTRAST CLINICAL INDICATION: Chest pain and shortness of breath TECHNIQUE: Axial CT images through the were obtained from the lung apices through the upper abdomen after a bolus tracked intravenous contrast injection over the pulmonary arteries. 75 cc of Isovue 370 contrast was given intravenously. Three-dimensional and surface-shaded reconstructions were performed by myself on a separate workstation at the time of dictation. Dose reduction was employed with automated exposure control. COMPARISON: Chest radiographs earlier the same day. CT abdomen pelvis 04/13/2021. FINDINGS: Limitations: Somewhat limited by motion artifact and suboptimal opacification of the pulmonary arteries. Heart/mediastinum: Heart size is within normal limits. Thoracic aorta and pulmonary trunk are normal in caliber. No filling defects within the pulmonary trunk, pulmonary arteries, and proximal segmental branches. More distal branches are suboptimally evaluated. Scant atherosclerotic calcifications with involvement of the coronary arteries. Multiple prominent and mildly enlarged mediastinal and perihilar lymph nodes. Lungs/pleura: Fairly extensive diffuse groundglass opacities in a basilar subpleural distribution. Borderline bronchiectasis. No pleural effusions or pneumothorax. Central tracheobronchial tree appears patent. Visualized upper abdomen: Punctate hypodensities the liver too small to definitively characterize but present on prior study to some extent. No discrete adrenal mass or nodule. Visualized spleen appears homogeneous. Osseous structures/soft tissues: Mild degenerative spondylosis in the visualized spine with Schmorl's nodes deformities. Slight age indeterminant compression fracture deformity at the approximate T4 level. Suspected fracture deformity involving the manubrium of the sternum. No suspicious axillary adenopathy. IMPRESSION: 1. Somewhat limited evaluation. No large central pulmonary embolism detected. Peripheral branches not well evaluated. 2. Fairly extensive diffuse groundglass opacities in a basilar subpleural distribution. Findings could be seen in the setting of viral pneumonia such as Covid 19. Pulmonary edema/interstitial edema and other inflammatory etiologies could also be considered. No significant pleural effusions. 3. Mild mediastinal/perihilar adenopathy likely reactive. Report Dictated on Electronically Signed By: Mark Finnegan MD Electronically Signed Date/Time: 01/29/2023 8:39 PM EDT [facility] [place] Radiology Study observation (narrative) [facility] CTA Chest vessels WO and W c ontrast IVOrdered By: Fe Finnegan on 01-29-2023 [facility] [place] Work Phone: Comprehensive metabolic 1998 panelon 01-29-2023 Albumin [Mass/Vol] 3.6 g/dL 3.5 - 5.0 g/dL [facility] [place] ALP [Catalytic activity/Vol] 138 U/L High 38 - 126 U/L [facility] [place] ALT [Catalytic activity/Vol] 17 U/L 0 - 49 U/L [facility] [place] Anion gap [Moles/Vol] 9 mmol/L 3 - 13 mmol/L [facility] [place] AST [Catalytic activity/Vol] 46 U/L 15 - 46 U/L [facility] [place] Bilirubin [Mass/Vol] 0.5 mg/dL 0.2 - 1 .3 mg/dL [facility] [place] Calcium [Mass/Vol] 7.7 mg/dL Low 8.4 - 10. 4 mg/dL [facility] [place] Chloride [Moles/Vol] 98 mmol/L 98 - 10 7 mmol/L [facility] [place] CO2 [Moles/Vol] 26 mmol/L 22 - 30 mmol/L [facility] [place] Creatinine [Mass/Vol] 0.63 mg/dL Low 0.66 - 1.25 mg/dL [facility] [place] GFR/1.73 sq M.predicted MDRD (S/P/Bld) [Vol rate/Area] - St. [facility] Comment on above: Calculation based on the Chronic Kidney Disease Epidemiology Collaboration (CKD-EPI) equation refit without adjustment for race Glucose [Mass/Vol] 164 mg/dL High 70 - 100 mg/dL [facility] [place] Interpretation and review of laboratory results Abnormal [facility] [place] Potassium [Moles/Vol] 3.3 mmol/L Low 3.5 - 5.1 mmol/L [facility] [place] Protein [Mass/Vol] 6.9 g/dL 6.3 - 8.2 g/dL [facility] [place] Sodium [Moles/Vol] 134 mmol/L Low 135 - 145 mmol/L [facility] [place] Urea nitrogen [Mass/Vol] 12 mg/dL 9 - 20 mg/dL [facility] [place] Chemistry specimen i s slightly hemolyzed. Interpret results with caution. [facility] Albumin [Mass/Vol] 3.8 g/dL 3.5 - 5.0 g/dL [facility] [place] ALP [Catalytic activity/Vol] 137 U/L High 38 - 126 U/L [facility] [place] ALT [Catalytic activity/Vol] 21 U/L 0 - 49 U/L [facility] [place] Anion gap [Moles/Vol] 13 mmol/L 3 - 13 mmol/L [facility] [place] AST [Catalytic activity/Vol] 53 U/L High 15 - 46 U/L [facility] [place] Bilirubin [Mass/Vol] 0.7 mg/dL 0.2 - 1 .3 mg/dL [facility] [place] Calcium [Mass/Vol] 8.3 mg/dL Low 8.4 - 10. 4 mg/dL [facility] Chloride [Moles/Vol] 99 mmol/L 98 - 10 7 mmol/L [facility] [place] CO2 [Moles/Vol] 28 mmol/L 22 - 30 mmol/L [facility] [place] Creatinine [Mass/Vol] 0.68 mg/dL 0.66 - 1.25 mg/dL [facility] [place] GFR/1.73 sq M.predicted MDRD (S/P/Bld) [Vol rate/Area] - [facility] Comment on above: Calculation based on the Chronic Kidney Disease Epidemiology Collaboration (CKD-EPI) equation refit without adjustment for race Glucose [Mass/Vol] 101 mg/dL High 70 - 100 mg/dL [facility] [place] Interpretation and review of laboratory results Abnormal [facility] [place] Potassium [Moles/Vol] 3.8 mmol/L 3.5 - 5.1 mmol/L [facility] [place] Protein [Mass/Vol] 7.6 g/dL 6.3 - 8.2 g/dL [facility] [place] Sodium [Moles/Vol] 139 mmol/L 135 - 145 mmol/L [facility] [place] Urea nitrogen [Mass/Vol] 13 mg/dL 9 - 20 mg/dL [facility] [place] Slight Hemolysis [facility] alth [facility] [place] Ethanol (Bld) [Mass/Vol]on Ethanol [Mass/Vol] g/dL 0.000 - 0 .010 g/dL [facility] [place] Comment on above: This sample may have been collected by using an alcohol pad to swab the skin. Ethanol-containing antiseptics before venipuncture may not be causes of spurious or false positive results of alcohol measurement at least when ideal venipunctures can be performed. However, under non-ideal collection conditions, alcohol contamination is a possibility. Results to be correlated clinically. Interpretation and review of laboratory results Normal [facility] Lactic acid with reflexon Interpretation and review of laboratory results Normal [facility] [place] Lactate [Moles/Vol] 1.5 mmol/L 0.7 - 2. 0 mmol/L [facility] Interpretation and review of laboratory results Abnormal [facility] [place] Lactate [Moles/Vol] 3.6 mmol/L High 0.7 - 2. 0 mmol/L [facility] Natriuretic peptide B [Mass/ Vol]on 01-29-2023 Interpretation and review of laboratory results Abnormal [facility] [place] Natriuretic peptide B (Bld) [Mass/Vol] 503 pg/mL High <20 - 100 [facility] [place] No Panel Informationon 01-29 [facility] [place] POCT arterial blood gason Base excess Calc (Bld) [Moles/Vol] 2.2 mmol/L -3.0 - 3.0 mmol/L [facility] [place] CO2 (Bld) [Partial pressure] 42.5 mm[Hg] [facility] [place] CO2 [Moles/Vol] 28.5 mmol/L High 23.0 - 27.0 mmol/L [facility] FIO2 60 [facility] [place] Comment on above: Performed by CLIA ID : [id number] [facility] [place], [place], [place] ?Device: [id number] Mva Still Operator ID: [id number] HCO3 (Bld) [Moles/Vol] 27.2 mmol/L High 21.0 - 25.0 mmol/L [facility] [place] Interpretation and review of laboratory results Abnormal [facility] Oxygen (Bld) [Partial pressure] 61.0 mm[Hg] Low [facility] pH (Bld) 7.414 [pH] 7.350 - 7.450 pH [facility] [place] Performed by: [facility], [address] [place] [id number] CLIA ID: [id number] [facility] Rheumatoid factoron 01-30-20 23 Rheumatoid factor Qn 10 [IU]/mL [facility] Rheumatoid factor Qnon 01-29 Interpretation and review of laboratory results Normal [facility] SARS-CoV-2, Flu A/B, and RSV Comboon 01-29-2023 FLUAV RNA CONNOR+probe Ql (Resp) Not detected Not Detected [facility] [place] FLUBV RNA CONNOR+probe Ql (Resp) Not detected Not Detected [facility] [place] Interpretation and review of laboratory results Normal [facility] RSV RNA CONNOR+probe Ql (Resp) Not detected Not Detected [facility] SARS-CoV-2 (COVID-19) RNA CONNOR+probe Ql (Resp) Not detected Not Detected [facility] alth SARS-CoV-2 (COVID-19) RNA CONNOR+probe Ql (Unsp spec) Methodology: real-time, RT-PCR The SARS-CoV-2, Flu A/B, and RSV Combo assay is intended for in vitro diagnostic use under the FDA Emergency Use Authorization (EUA). This test has not been FDA cleared or approved. In compliance with this authorization, please visit www.fda.gov/media/226 158/download or www.fda.gov/media/930 562/download to access the applicable information sheets. [facility] Troponin - One Time order ON Short 01-29-2023 Troponin I.cardiac [Mass/Vol] ng/mL NINF - 0.034 ng/mL [facility] [place] Troponin I.cardiac [Mass/Vol ]on 01-29-2023 Interpretation and review of laboratory results Normal [facility] [place] Patients with high levels of Biotin oral intake (ie >5 mg/day) may have falsely decreased Troponin levels. [facility] [employer] Interpretation and review of laboratory results Normal [facility] [place] Patients with high levels of Biotin oral intake (ie >5 mg/day) may have falsely decreased Troponin levels. [facility] [place] Troponin, with Serial Reflex on 01-29-2023 Troponin I.cardiac [Mass/Vol] ng/mL NINF - 0.034 ng/mL [facility] XR Chest Single viewon 01-29 Pulmonary vascular congestion and/or infiltrates. Report Dictated on Electronically Signed By: Chela Cleaning MD Electronically Signed Date/Time: 01/29/2023 7:01 PM EDT [facility] Patient Name: EL SMITH : 1980 Exam Date/Time: 01/29/2023 18:57 Procedure: XR CHEST 1 VIEW Ordering Provider: COLLADO SCOTT Reason For Exam: DYSPNEA INDICATION: 42-year-old. Shortness of breath. VIEWS: Chest portable upright-2 images COMPARISON: 09/18/2022 FINDINGS: The trachea is midline. The cardiac silhouette is mildly enlarged. The lung volumes are low. There is coarsening of interstitium. Bilateral lower lung patchy opacities are present. Cardiac monitoring wires and leads are present. [facility] Chela Cleaning MD - 01/29/2023 Patient Name: EL SMITH : 1980 Exam Date/Time: 01/29/2023 18:57 Procedure: XR CHEST 1 VIEW Ordering Provider: COLLADO SCOTT Reason For Exam: DYSPNEA INDICATION: 42-year-old. Shortness of breath. VIEWS: Chest portable upright-2 images COMPARISON: 09/18/2022 FINDINGS: The trachea is midline. The cardiac silhouette is mildly enlarged. The lung volumes are low. There is coarsening of interstitium. Bilateral lower lung patchy opacities are present. Cardiac monitoring wires and leads are present. IMPRESSION: Pulmonary vascular congestion and/or infiltrates. Report Dictated on Electronically Signed By: Chela Cleaning MD Electronically Signed Date/Time: 01/29/2023 7:01 PM EDT [facility] Radiology Study observation (narrative) Deandre Randolhp alth XR Chest Single viewOrdered By: Chela Cleaning on 01-29-2023 [facility] [employer] Work Phone: XR Hand - right 3 Viewson Patient Name: EL SMITH : 1980 Exam Date/Time: 10/10/2022 16:40 Procedure: XR HAND 3+ VIEWS RIGHT Ordering Provider: CAMPOS MICHAEL Reason For Exam: pain attn 2nd pip, r/o fx/fb HISTORY: Pain, attention second finger Three views right hand show no evidence of fracture or radiopaque foreign matter. Prior ORIF fourth metacarpal with long wire, unchanged since 02/21/2022 exam. Deformity proximal fifth metacarpal unchanged. Report Dictated on Electronically Signed By: Fransisco Martin Electronically Signed Date/Time: 10/10/2022 4:58 PM EDT [facility] Fransisco Martin MD - 10/10/2022 Patient Name: EL SMITH : 1980 Exam Date/Time: 10/10/2022 16:40 Procedure: XR HAND 3+ VIEWS RIGHT Ordering Provider: CAMPOS MICHAEL Reason For Exam: pain attn 2nd pip, r/o fx/fb HISTORY: Pain, attention second finger Three views right hand show no evidence of fracture or radiopaque foreign matter. Prior ORIF fourth metacarpal with long wire, unchanged since 02/21/2022 exam. Deformity proximal fifth metacarpal unchanged. Report Dictated on Electronically Signed By: Fransisco Martin Electronically Signed Date/Time: 10/10/2022 4:58 PM EDT [facility] Radiology Study observation (narrative) Deandre tejeda XR Hand - right 3 ViewsOrder ed By: Fransisco Martin on 10-10-2022 [facility] [employer] Work Phone: BUPRENORPHINE SCREEN TO CONF IRM,URINEon 09-26-2022 BUPRENORPHINE SCREEN,INTERP. See Note Normal [facility] Comment on above: Result Comment: INTE RPRETIVE INFORMATION: The absence of expected drug(s) and/or drug metabolite(s) may indicate non-compliance, inappropriate timing of specimen collection relative to drug administration, poor drug absorption, diluted/adulterated urine, or limitations of testing. The concentration at which the screening test can detect a drug or metabolite varies. Specimens for which drugs or drug classes are detected by the screen are reflexed to a second, more specific technology (GC/MS and/or LC-MS/MS). The concentration value must be greater than or equal to the cutoff to be reported as positive. Interpretive questions should be directed to the laboratory. For medical purposes only; not valid for forensic use. Performed By: [facility] [address] [place] [address] Store Hand: Steven Yousif MD, PhD Performed By: #### B UPRS #### [address] [address] BUPRENORPHINE SCREEN,URINE Negative Normal Cutoff 5 [facility] Comment on above: Performed By: #### B UPRS #### [address] [address] GABAPENTIN,URINEon 3 GABAPENTIN,URINE >500.0 Normal [facility] Comment on above: Result Comment: INTE RPRETIVE INFORMATION: Gabapentin, Urine Positive cutoff: 5.0 ug/mL For medical purposes only; not valid for forensic use. The absence of expected drug(s) and/or drug metabolite(s) may indicate non-compliance, inappropriate timing of specimen collection relative to drug administration, poor drug absorption, diluted/adulterated urine, or limitations of testing. The concentration value must be greater than or equal to the cutoff to be reported as a quantitative result. Interpretive questions should be directed to the laboratory. This test was developed and its performance characteristics determined by [facility]. It has not been cleared or approved by the [place] Food and Drug Administration. This test was performed in a CLIA certified laboratory and is intended for clinical purposes. Performed By: [facility] [address] [place] [address] Store Hand: Steven Yousif MD, PhD Performed By: #### G ABAU #### [facility] [address] [place] [address] T-SPOT TBon 09-24-2022 NIL[NEG]CONTROL SPOT COUNT Passed Normal [place] Comment on above: Performed By: #### T SPOT #### [facility] [address] [place] [address] PANEL A SPOT COUNT 0 Normal [place] on/Por [facility] Comment on above: Performed By: #### T SPOT #### [facility] [address] [place] [address] PANEL B SPOT COUNT 0 Normal [place] on/Por [facility] Comment on above: Performed By: #### T SPOT #### [facility] [address] [place] [address] POS CONTROL SPOT COUNT Passed Normal [place]/Por [facility] Comment on above: Performed By: #### T SPOT #### [facility] [address] [place] [address] T-SPOT.TB INTERP Negative Normal Normal Valu e: Negative [place] Comment on above: Result Comment: A ne gative test result does not exclude the possibility of exposure to or infection with Mycobacterium tuberculosis (M. tuberculosis). Patients with recent exposure to TB infected individuals exhibiting a negative T-SPOT.TB result should be considered for retesting within 6 weeks or if other relevant clinical symptoms indicate. Results from T-SPOT.TB testing must be used in conjunction with each individual's epidemiological history, current medical status, and results of other diagnostic evaluations. The T-SPOT.TB test is qualitative and results are reported as positive, borderline or negative, given that the test controls perform as expected. In line with the Centers for Disease Control and Prevention's 2010 recommendation to report quantitative measurements alongside the qualitative result, the laboratory provides spot counts for informational purposes only. The T-SPOT.TB test should not be interpreted as a quantitative test. Performed By: #### T SPOT #### [facility] [address] [place] [address] ALCOHOLon 09-22-2022 Ethanol [Mass/Vol] mg/dL Normal [place] on/Por [facility] Comment on above: Result Comment: FOR MEDICAL USE ONLY. . REF VALUES <10 Performed By: #### A LC #### [place] [address] CBC AND DIFFERENTIALon 09-22 % AUTOMATED IMMATURE GRAN 1.2 % High 0.0 - 0.9 [facility] Comment on above: Result Comment: Ameena ture Granulocyte Count (IG) includes promyelocytes, myelocytes and metamyelocytes but does not include bands. Percent differential counts (%) should be interpreted in the context of the absolute cell counts (cells/L). Performed By: #### C BCDF #### [place] [address] Basophils (Bld) [#/Vol] 0.05 10*3/uL Normal 0.00 - 0.1 0 [facility] Comment on above: Performed By: #### C BCDF #### [place] [address] Basophils/100 WBC (Bld) 0.7 % Normal 0.0 - 2.0 R [facility] Comment on above: Performed By: #### C BCDF #### [place] [address] Eosinophils (Bld) [#/Vol] 0.46 10*3/uL Normal 0.00 - 0.70 [facility] Comment on above: Performed By: #### C BCDF #### [place] [address] Eosinophils/100 WBC (Bld) 6.1 % Normal 0.0 - 6.0 [facility] Comment on above: Performed By: #### C BCDF #### [place] [address] Erythrocyte distribution width (RBC) [Ratio] 15.0 % High 11.5 - 14.5 [facility] Comment on above: Performed By: #### C BCDF #### [place] [address] Hematocrit (Bld) [Volume fraction] 38.4 % Low 41.0 - 52.0 [place] Comment on above: Performed By: #### C BCDF #### [address] [address] Hemoglobin (Bld) [Mass/Vol] 12.8 g/dL Low 13.5 - 17.5 [place] Comment on above: Performed By: #### C BCDF #### [address] [address] Lymphocytes (Bld) [#/Vol] 2.52 10*3/uL Normal 1.20 - 4.80 [place] Comment on above: Performed By: #### C BCDF #### [address] [address] Lymphocytes/100 WBC (Bld) 33.7 % Normal 13.0 - 44.0 [facility] Comment on above: Performed By: #### C BCDF #### [address] [address] MCHC (RBC) [Mass/Vol] 33.3 g/dL Normal 32.0 - 36.0 [place]/Por [facility] Comment on above: Performed By: #### C BCDF #### [address] [address] MCV (RBC) [Entitic vol] 92 fL Normal 80 - 100 R [facility] Comment on above: Performed By: #### C BCDF #### [address] [address] Monocytes (Bld) [#/Vol] 0.51 10*3/uL Normal 0.10 - 1.0 0 [facility] Comment on above: Performed By: #### C BCDF #### [address] [address] Monocytes/100 WBC (Bld) 6.8 % Normal 2.0 - 10.0 [place]/Por [facility] Comment on above: Performed By: #### C BCDF #### [address] [address] Neutrophils (Bld) [#/Vol] 3.85 10*3/uL Normal 1.20 - 7.70 [place] Comment on above: Performed By: #### C BCDF #### [address] [address] Neutrophils/100 WBC (Bld) 51.5 % Normal 40.0 - 80.0 [place] Comment on above: Performed By: #### C BCDF #### [address] [address] Platelets (Bld) [#/Vol] 544 10*3/uL High 150 - 450 [place] Comment on above: Performed By: #### C BCDF #### [address] [address] RBC 4.19 x10E12/L Low 4.50 - 5.90 [place]/ or [facility] Comment on above: Performed By: #### C BCDF #### [address] [address] WBC (Bld) [#/Vol] 7.5 10*3/uL Normal 4.4 - 11.3 [facility] Comment on above: Performed By: #### C BCDF #### [address] [address] COMPREHENSIVE PANELon 2022 Albumin [Mass/Vol] 3.0 g/dL Low 3.4 - 5.0 [facility]/Por [facility] Comment on above: Performed By: #### C MP #### [address] [address] ALP [Catalytic activity/Vol] 104 U/L Normal 33 - 120 [place] Comment on above: Performed By: #### C MP #### [address] [address] ALT [Catalytic activity/Vol] 14 U/L Normal 10 - 52 [place] Comment on above: Result Comment: Sveta ents treated with Sulfasalazine may generate falsely decreased results for ALT. Performed By: #### C MP #### [address] [address] Anion gap [Moles/Vol] 12 mmol/L Normal 10 - 20 [facility] Comment on above: Performed By: #### C MP #### [address] [address] AST [Catalytic activity/Vol] 19 U/L Normal 9 - 39 [place] Comment on above: Performed By: #### C MP #### [address] [address] Bilirubin [Mass/Vol] 0.3 mg/dL Normal 0.0 - 1.2 [facility] Comment on above: Performed By: #### C MP #### [address] [address] Calcium [Mass/Vol] 8.4 mg/dL Low 8.6 - 10.3 [place] onPor [facility] Comment on above: Performed By: #### C MP #### [address] [address] Chloride [Moles/Vol] 101 mmol/L Normal 98 - 107 [facility] Comment on above: Performed By: #### C MP #### [address] [address] Creatinine [Mass/Vol] 0.73 mg/dL Normal 0.50 - 1.30 [facility] Comment on above: Performed By: #### C MP #### [address] [address] eGFR MALE >90 Normal >90 [facility] Comment on above: Result Comment: CALC ULATIONS OF ESTIMATED GFR ARE PERFORMED USING THE 2020 CKD-EPI STUDY REFIT EQUATION WITHOUT THE RACE VARIABLE FOR THE IDMS-TRACEABLE CREATININE METHODS. https://jasn.asnjournals.org/content/early/ASN.2020 950648 Performed By: #### C MP #### [address] [address] Glucose [Mass/Vol] 100 mg/dL High 74 - 99 [facility] Comment on above: Performed By: #### C MP #### [address] [address] HCO3 (Bld) [Moles/Vol] 30 mmol/L Normal 21 - 32 [place]/Por [facility] Comment on above: Performed By: #### C MP #### [address] [address] Potassium [Moles/Vol] 3.5 mmol/L Normal 3.5 - 5.3 [facility] Comment on above: Performed By: #### C MP #### [address] [address] Protein [Mass/Vol] 6.0 g/dL Low 6.4 - 8.2 [facility] Comment on above: Performed By: #### C MP #### [address] [address] Sodium [Moles/Vol] 139 mmol/L Normal 136 - 145 [facility] Comment on above: Performed By: #### C MP #### [address] [address] Urea nitrogen [Mass/Vol] 11 mg/dL Normal 6 - 23 [place] Comment on above: Performed By: #### C MP #### [address] [address] HEPATITIS PANEL,ACUTE (HCFA) on 09-22-2022 HEPATITIS A AB-IGM Non-Reactive Normal NONREACTIVE [facility] Comment on above: Result Comment: Biot in interference may cause falsely decreased results. Patients taking a Biotin dose of up to 5 mg/day should refrain from taking Biotin for 24 hours before sample collection. Providers may contact their local laboratory for further information. Performed By: #### H EPA2 #### [facility] [address] [place] [address] HEPATITIS B CORE AB,IGM Non-Reactive Normal NONREACTIV E [place] Comment on above: Result Comment: Resu lts from patients taking biotin supplements or receiving high-dose biotin therapy should be interpreted with caution due to possible interference with this test. Providers may contact their local laboratory for further information. Performed By: #### H EPA2 #### [facility] [address] [place] [id number] HEPATITIS C AB Non-Reactive Normal NONREACTIVE [place] Comment on above: Result Comment: Resu lts from patients taking biotin supplements or receiving high-dose biotin therapy should be interpreted with caution due to possible interference with this test. Providers may contact their local laboratory for further information. Performed By: #### H EPA2 #### [facility] [address] [place] [address] HEP.B SURFACE AG Non-Reactive Normal NONREACTIVE [facility] Comment on above: Result Comment: Biot in interference may cause falsely decreased results. Patients taking a Biotin dose of up to 5 mg/day should refrain from taking Biotin for 24 hours before sample collection. Providers may contact their local laboratory for further information. Performed By: #### H EPA2 #### [facility] [address] [place] [id number] HIV 1/2 ANTIGEN/ANTIBODY SCR EEN WITH REFLEX TO CONFIRMATIONon 09-22-2022 HIV 1/2 AG/AB SCREEN Non-Reactive Normal NONREACTIVE R obinson/[facility] Comment on above: Result Comment: HIV Ag/Ab screen is performed using the Siemens [employer] HIV Ag/Ab Combo assay which detects the presence of HIV p24 antigen as well as antibodies to HIV-1 (Group M and O) and HIV-2. . No laboratory evidence of HIV infection. If acute HIV infection is suspected, consider testing for HIV RNA by PCR (viral load). Performed By: #### H IV #### [facility] [address] [place] [address] Lab Specimen Source Normal [facility] Comment on above: Performed By: #### H IV #### [facility] [address] [place] [address] Performed By: #### H EPA2 #### [facility] [address] [place] [address] Performed By: #### S YPHR #### [facility] [address] [place] [address] SYPHILIS SCREENING WITH REFL EXon 09-22-2022 SYPHILIS TOTAL AB Non-Reactive Normal NONREACTIVE Jose G nson/Por [facility] Comment on above: Result Comment: No s erologic evidence of syphilis infection. If recent exposure is suspected, repeat syphilis testing is recommended in 2 to 4 weeks. Performed By: #### S YPHR #### [facility] [address] [place] [address] DRUG SCREEN,URINEon 09-22-19 AMPHETAMINE SCREEN,U Negative Normal NEGATIVE Jose G nson/Por [facility] Comment on above: Result Comment: CUTO FF LEVEL: 500 NG/ML Cross-reactivity has been reported with high concentrations of the following drugs: buproprion, chloroquine, chlorpromazine, ephedrine, mephentermine, fenfluramine, phentermine, phenylpropanolamine, pseudoephedrine, and propranolol. Performed By: #### D RUG3 #### [address] [address] BARBITURATES SCREEN,U Positive Abnormal NEGATIVE Mohit inson/Por [facility] Comment on above: Result Comment: CUTO FF LEVEL: 200 NG/ML Performed By: #### D RUG3 #### [address] [address] BENZODIAZEPINES SCREEN,U Negative Normal NEGATIVE Salazar/Por [facility] Comment on above: Result Comment: CUTO FF LEVEL: 200 NG/ML Performed By: #### D RUG3 #### [address] [address] CANNABINOIDS SCREEN,U Positive Abnormal NEGATIVE Mohit inson/Por [facility] Comment on above: Result Comment: CUTO FF LEVEL: 50 NG/ML Performed By: #### D RUG3 #### [address] [address] COCAINE METABOLITE SCREEN,U Negative Normal NEGATIVE Salazar/Por [facility] Comment on above: Result Comment: CUTO FF LEVEL: 150 NG/ML Performed By: #### D RUG3 #### [place] [address] DRUG SCREEN COMMENT SEE BELOW Normal Robert son/Por [facility] Comment on above: Result Comment: Drug screen results are presumptive and should not be used to assess compliance with prescribed medication. Contact the performing [facility] laboratory to add-on definitive confirmatory testing if clinically indicated. . Toxicology screening results are reported qualitatively. The concentration must be greater than or equal to the cutoff to be reported as positive. The concentration at which the screening test can detect an individual drug or metabolite varies. The absence of expected drug(s) and/or drug metabolite(s) may indicate non-compliance, inappropriate timing of specimen collection relative to drug administration, poor drug absorption, diluted/adulterated urine, or limitations of testing. For medical purposes only; not valid for forensic use. . Interpretive questions should be directed to the laboratory medical directors. Performed By: #### D RUG3 #### [place] [address] FENTANYL SCREEN,URINE Negative Normal NEGATIVE Mohit inson/Por [facility] Comment on above: Result Comment: CUTO FF LEVEL: 5 NG/ML Performed By: #### D RUG3 #### [place] [address] METHADONE SCREEN,U Positive Abnormal NEGATIVE [place] on/Por [facility] Comment on above: Result Comment: CUTO FF LEVEL: 150 NG/ML The metabolite Q-lkhbz-mpvwvzavjpvvux (LAAM) is not detected by this method in concentrations that would be found in the urine of patients on LAAM therapy. Performed By: #### D RUG3 #### [place] [address] OPIATES SCREEN,U Positive Abnormal NEGATIVE Salazar /Por [facility] Comment on above: Result Comment: CUTO FF LEVEL: 300 NG/ML The opiate screen does not detect fentanyl, meperidine, or tramadol. Oxycodone is not consistently detected (refer to Oxycodone Screen, Urine result). Performed By: #### D RUG3 #### [place] [address] OXYCODONE SCREEN,U Negative Normal NEGATIVE [place] on/Por [facility] Comment on above: Result Comment: CUTO FF LEVEL: 100 NG/ML This test will accurately detect both oxycodone and oxymorphone. Performed By: #### D RUG3 #### [address] [address] PCP SCREEN,U Negative Normal NEGATIVE Salazar/Por [facility] Comment on above: Result Comment: CUTO FF LEVEL: 25 NG/ML Cross-reactivity has been reported with dextromethorphan. Performed By: #### D RUG3 #### [address] [address] CBC W Auto Differential pane l (Bld)Ordered By: Erlin Quintana on 09-19-2022 Basophils (Bld) [#/Vol] 0.0 10*3/uL 0.0 - 0.2 10*3/uL [employer] Basophils/100 WBC (Bld) 0.6 % 0.0 - 2.0 % [employer] Eosinophils (Bld) [#/Vol] 0.0 10*3/uL 0.0 - 0.5 10*3/uL [employer] Eosinophils/100 WBC (Bld) 0.1 % Low 1.0 - 6.0 % [employer] Erythrocyte distribution width (RBC) [Ratio] 16.7 % High 11.5 - 14.5 % [employer] Hematocrit (Bld) [Volume fraction] 34.0 % Low 40.0 - 52.0 % [employer] Hemoglobin (Bld) [Mass/Vol] 11.4 g/dL Low 13.0 - 18.0 g/dL [facility] [employer] Interpretation and review of laboratory results Abnormal [employer] Lymphocytes (Bld) [#/Vol] 0.8 10*3/uL Low 1.0 - 4.3 10*3/uL [employer] Lymphocytes/100 WBC (Bld) 10.9 % Low 20.0 - 40.0 % [employer] MCH (RBC) [Entitic mass] 30.5 pg 26.0 - 34.0 pg [employer] MCHC (RBC) [Mass/Vol] 33.4 % 32.0 - 36.0 % [employer] MCV (RBC) [Entitic vol] 91.2 fL 80.0 - 98.0 fL [facility] Monocytes (Bld) [#/Vol] 0.1 10*3/uL 0.0 - 0.8 10*3/uL [facility] Monocytes/100 WBC (Bld) 1.8 % Low 2.0 - 10.0 % [facility] Neutrophils (Bld) [#/Vol] 6.1 10*3/uL 1.8 - 7.0 10*3/uL [facility] Neutrophils/100 WBC (Bld) 86.6 % High 40.0 - 80.0 % [facility] Nucleated RBC/100 WBC (Bld) [Ratio] 0.0 % [facility] Platelet mean volume (Bld) [Entitic vol] 7.2 fL Low 7.4 - 12.4 fL [facility] Platelets (Bld) [#/Vol] 413 10*3/uL 140 - 440 10*3/uL [facility] RBC (Bld) [#/Vol] 3.73 10*6/uL Low 4.40 - 5.9 0 10*6/uL [facility] WBC (Bld) [#/Vol] 7.1 10*3/uL 3.6 - 10.7 10*3/uL [facility] Comprehensive metabolic 1998 panelon 09-19-2022 Albumin [Mass/Vol] 2.4 g/dL Low 3.5 - 5.0 g/dL [facility] ALP [Catalytic activity/Vol] 108 U/L 38 - 126 U/L [facility] ALT [Catalytic activity/Vol] 13 U/L 0 - 49 U/L [facility] Anion gap [Moles/Vol] 3 mmol/L 3 - 13 mmol/L [facility] AST [Catalytic activity/Vol] 25 U/L 15 - 46 U/L [facility] Bilirubin [Mass/Vol] 0.3 mg/dL 0.2 - 1 .3 mg/dL [facility] Calcium [Mass/Vol] 6.3 mg/dL Low 8.4 - 10. 4 mg/dL [facility] Chloride [Moles/Vol] 109 mmol/L High 98 - 10 7 mmol/L [facility] CO2 [Moles/Vol] 24 mmol/L 22 - 30 mmol/L [facility] Creatinine [Mass/Vol] 0.40 mg/dL Low 0.66 - 1.25 mg/dL [facility] GFR/1.73 sq M.predicted MDRD (S/P/Bld) [Vol rate/Area] - PINF [facility] Comment on above: Calculation based on the Chronic Kidney Disease Epidemiology Collaboration (CKD-EPI) equation refit without adjustment for race Glucose [Mass/Vol] 144 mg/dL High 70 - 100 mg/dL [facility] Interpretation and review of laboratory results Abnormal [facility] Potassium [Moles/Vol] 2.8 mmol/L Low 3.5 - 5.1 mmol/L [facility] Protein [Mass/Vol] 4.9 g/dL Low 6.3 - 8.2 g/dL [facility] Sodium [Moles/Vol] 136 mmol/L 135 - 145 mmol/L [facility] Urea nitrogen [Mass/Vol] 15 mg/dL 9 - 20 mg/dL [facility] Laboratory - Chemistry and C hemistry - challengeon 09-19-2022 Magnesium [Mass/Vol] 1.7 mg/dL 1.6 - 2 .3 mg/dL [facility] MRSA DNA CONNOR+probe Ql (Nose) on 09-19-2022 Interpretation and review of laboratory results Normal [facility] mecA gene Not detected Not Detected [facility] Staphylococcus aureus Not detected Not Detected [facility] No Staphylococcus aureus detected. Negative nasal MRSA PCR has a high negative predictive value for MRSA pneumonia. Consider stopping Vancomycin if no other clinical indication. Contact Antimicrobial Stewardship for further recommendations. Staphylococcus aureus nasal screen by real-time PCR. This test was modified and its performance characteristics determined by [facility] System Microbiology Service. The U. [place]. Food and Drug Administration has not approved or cleared this test; however, FDA clearance or approval is not currently required for clinical use. The results are not intended to be used as the sole means for clinical diagnosis or patient management decisions. [facility] Magnesium [Mass/Vol]on 09-19 Interpretation and review of laboratory results Normal [facility] No Panel InformationOrdered By: Sharmin Saunders on 09-19-2022 Interpretation and review of laboratory results Normal [facility] Legionella pneumophila Ag Not detected Not Detected [facility] Streptococcus pneumoniae Ag Not detected Not Detected [facility] Methodology: Lateral flow enzyme immunoassay This assay is approved for detection of antigens to Streptococcus pneumoniae and Legionella pneumophila serogroup 1; however, other L. pneumophila serogroups may also be detected. [facility] [employer] No Panel InformationOrdered By: Giovani Collado on 09-19-2022 P [place] 39 degrees [facility] Work Phone: MI Interval 148 ms [facility] Work Phone: QRS [place] 26 degrees [facility] Work Phone: QRSD Interval 110 ms [facility] Work Phone: QT Interval 388 ms [facility] Work Phone: QTC Interval 483 ms [facility] Work Phone: T Wave [place] 73 degrees [facility] Work Phone: [facility] Work Phone: No Panel Informationon 09-19 SINUS RHYTHM NONSPECIFIC INTRAVENTRICULAR CONDUCTION DELAY PROBABLE LEFT VENTRICULAR HYPERTROPHY Compared to ECG 09/16/2022 10:21:04 Electronically Signed On 09-19-2022 0:13:30 EDT by Giovani Collado Giovani White MD - 09/19/2022 IMPRESSION: SINUS RHYTHM NONSPECIFIC INTRAVENTRICULAR CONDUCTION DELAY PROBABLE LEFT VENTRICULAR HYPERTROPHY Compared to ECG 09/16/2022 10:21:04 Electronically Signed On 09-19-2022 0:13:30 EDT by Giovani Collado [facility] Respiratory pathogens DNA an d RNA panel CONNOR+probe (Nph)on 09-19-2022 Adenovirus Not detected Not Detected [facility] B. pertussis DNA CONNOR+probe Ql (Unsp spec) Not detected Not Detected [facility] Bordetella parapertussis Not detected Not Detected [facility] Chlamydia pneumoniae Not detected Not Detected [facility] Coronavirus 229E Not detected Not Detected [facility] Coronavirus HKU1 Not detected Not Detected [facility] Coronavirus NL63 Not detected Not Detected [facility] Coronavirus OC43 Not detected Not Detected [facility] FLUAV RNA CONNOR+non-probe Ql (Nph) Not detected Not Detected [facility] FLUBV RNA CONNOR+non-probe Ql (Nph) Not detected Not Detected [facility] Human Metapneumovirus Not detected Not Detected [facility] Human Rhinovirus/Enterovirus Not detected Not Detected [facility] Interpretation and review of laboratory results Normal [facility] Mycoplasma pneumoniae Not detected Not Detected [facility] Parainfluenza 1 Not detected Not Detected [facility] Parainfluenza 2 Not detected Not Detected [facility] Parainfluenza 3 Not detected Not Detected [facility] Parainfluenza 4 Not detected Not Detected [facility] Respiratory Syncytial Virus Not detected Not Detected [facility] SARS-CoV-2 (COVID-19) RNA CONNOR+non-probe Ql (Nph) Not detected Not Detected [facility] Methodology: Multiplex PCR [facility] Vital signsOrdered By: Giovani Collado on 09-19-2022 Heart rate 93 /min bpm [facility] Work Phone: CBC W Auto Differential pane l (Bld)Ordered By: Iraida Coon on 09-18-2022 Basophils (Bld) [#/Vol] 0.2 10*3/uL 0.0 - 0.2 10*3/uL [facility] Basophils/100 WBC (Bld) 1.7 % 0.0 - 2.0 % [facility] Eosinophils (Bld) [#/Vol] 0.1 10*3/uL 0.0 - 0.5 10*3/uL [facility] Eosinophils/100 WBC (Bld) 1.1 % 1.0 - 6.0 % [facility] Erythrocyte distribution width (RBC) [Ratio] 15.8 % High 11.5 - 14.5 % [facility] Hematocrit (Bld) [Volume fraction] 37.3 % Low 40.0 - 52.0 % [facility] Hemoglobin (Bld) [Mass/Vol] 12.5 g/dL Low 13.0 - 18.0 g/dL [facility] Interpretation and review of laboratory results Abnormal [facility] Lymphocytes (Bld) [#/Vol] 2.6 10*3/uL 1.0 - 4.3 10*3/uL [facility] Lymphocytes/100 WBC (Bld) 23.1 % 20.0 - 40.0 % [facility] MCH (RBC) [Entitic mass] 30.2 pg 26.0 - 34.0 pg [facility] MCHC (RBC) [Mass/Vol] 33.7 % 32.0 - 36.0 % [facility] MCV (RBC) [Entitic vol] 89.8 fL 80.0 - 98.0 fL [facility] Monocytes (Bld) [#/Vol] 0.6 10*3/uL 0.0 - 0.8 10*3/uL [facility] Monocytes/100 WBC (Bld) 5.1 % 2.0 - 10.0 % [facility] Neutrophils (Bld) [#/Vol] 7.6 10*3/uL High 1.8 - 7.0 10*3/uL [facility] Neutrophils/100 WBC (Bld) 69.0 % 40.0 - 80.0 % [facility] Nucleated RBC/100 WBC (Bld) [Ratio] 0.0 % [facility] Platelet mean volume (Bld) [Entitic vol] 6.9 fL Low 7.4 - 12.4 fL [facility] Platelets (Bld) [#/Vol] 500 10*3/uL High 140 - 440 10*3/uL [facility] RBC (Bld) [#/Vol] 4.15 10*6/uL Low 4.40 - 5.9 0 10*6/uL [facility] WBC (Bld) [#/Vol] 11.1 10*3/uL High 3.6 - 10.7 10*3/uL [facility] COVID-19, Flu A/B, and RSV C omboon 09-18-2022 Interpretation and review of laboratory results Normal [facility] Comprehensive metabolic 1998 panelon 09-18-2022 Albumin [Mass/Vol] 3.5 g/dL 3.5 - 5.0 g/dL [facility] ALP [Catalytic activity/Vol] 154 U/L High 38 - 126 U/L [facility] ALT [Catalytic activity/Vol] 21 U/L 0 - 49 U/L [facility] Anion gap [Moles/Vol] 8 mmol/L 3 - 13 mmol/L [facility] AST [Catalytic activity/Vol] 56 U/L High 15 - 46 U/L [facility] Bilirubin [Mass/Vol] 0.5 mg/dL 0.2 - 1 .3 mg/dL [facility] Calcium [Mass/Vol] 8.2 mg/dL Low 8.4 - 10. 4 mg/dL [facility] Chloride [Moles/Vol] 101 mmol/L 98 - 10 7 mmol/L [facility] CO2 [Moles/Vol] 28 mmol/L 22 - 30 mmol/L [facility] Creatinine [Mass/Vol] 0.71 mg/dL 0.66 - 1.25 mg/dL [facility] GFR/1.73 sq M.predicted MDRD (S/P/Bld) [Vol rate/Area] - PINF [facility] Comment on above: Calculation based on the Chronic Kidney Disease Epidemiology Collaboration (CKD-EPI) equation refit without adjustment for race Glucose [Mass/Vol] 83 mg/dL 70 - 100 mg/dL [facility] Interpretation and review of laboratory results Abnormal [facility] Potassium [Moles/Vol] 3.1 mmol/L Low 3.5 - 5.1 mmol/L [facility] Protein [Mass/Vol] 6.9 g/dL 6.3 - 8.2 g/dL [facility] Sodium [Moles/Vol] 136 mmol/L 135 - 145 mmol/L [facility] Urea nitrogen [Mass/Vol] 18 mg/dL 9 - 20 mg/dL [facility] Ethanol (Bld) [Mass/Vol]on 0 09-18-2022 Ethanol [Mass/Vol] 0.010 g/dL 0.000 - 0 .010 g/dL [facility] Laboratory - Chemistry and C hemistry - challengeon 09-18-2022 Glucose [Mass/Vol] 184 mg/dL High 70 - 100 mg/dL [facility] Troponin I.cardiac [Mass/Vol] ng/mL 0.000 - 0.034 ng/mL [facility] Troponin I.cardiac [Mass/Vol] ng/mL 0.000 - 0.034 ng/mL [facility] CK [Catalytic activity/Vol] 103 U/L 30 - 170 U/L [facility] Base excess Calc (BldV) [Moles/Vol] 2.9 mmol/L -3 - 3 mmol/L [facility] CO2 (BldV) [Partial pressure] 41.8 mm[Hg] [facility] CO2 [Moles/Vol] 29.1 mmol/L High 24.0 - 28.0 mmol/L [facility] Comment on above: Performed by CLIA ID : [id number] [place], [place] ?Device: [id number] Mva Still Operator ID: [id number] HCO3 (Bld) [Moles/Vol] 27.8 mmol/L High 23.0 - 27.0 mmol/L [facility] Oxygen (BldV) [Partial pressure] 45.3 mm[Hg] [facility] pH (BldV) 7.431 [pH] High 7.330 - 7.430 pH [facility] Laboratory - Drug toxicology Ordered By: Frannie Amezcua on 09-18-2022 Amphetamines Screen method >1000 ng/mL Ql (U) Negative [facility] Barbiturates Screen method >200 ng/mL Ql (U) Positive [facility] Benzodiazepines Ql (U) Negative [facility] Methadone Screen Ql (U) Positive [facility] Opiates Screen Ql (U) Negative [facility] oxyCODONE Ql (U) Negative [facility] alth Phencyclidine Ql (U) Negative [facility] Laboratory - Microbiology an d Antimicrobial susceptibilityon 09-18-2022 FLUAV RNA CONNOR+probe Ql (Resp) Not detected Not Detected [facility] FLUBV RNA CONNOR+probe Ql (Resp) Not detected Not Detected [facility] RSV RNA CONNOR+probe Ql (Resp) Not detected Not Detected [facility] SARS-CoV-2 (COVID-19) RNA CONNOR+probe Ql (Resp) Not detected Not Detected [facility] alth SARS-CoV-2 (COVID-19) RNA CONNOR+probe Ql (Unsp spec) Methodology: real-time, RT-PCR The SARS-CoV-2, Flu A/B, and RSV Combo assay is intended for in vitro diagnostic use under the FDA Emergency Use Authorization (EUA). This test has not been FDA cleared or approved. In compliance with this authorization, please visit www.fda.gov/media/142 435/download or www.fda.gov/media/142 436/download to access the applicable information sheets. [facility] No Panel Informationon 09-18 Interpretation and review of laboratory results Abnormal [facility] Performed by: [facility], [address] [place] [id number] CLIA ID: [id number] [facility] Interpretation and review of laboratory results Normal [facility] FIO2 [facility] [facility] [place] Interpretation and review of laboratory results Abnormal [facility] [place] Performed by: [facility], [address] [address] CLIA ID: [id number] [facility] No Panel InformationOrdered By: Frannie Amezcua on 09-18-2022 COCAINE METAB. SCREEN Negative [facility] The expected value for all of the drugs listed above is Negative. The following drugs or drug groups have been screened for by Immunoassay at the following thresholds: Amphetamine class (1000 ng/mL) Barbiturates (200 ng/mL) Benzodiazepines (200 ng/mL) Cocaine (300 ng/mL) Methadone (300 ng/mL) Opiates (300 ng/mL) Oxycodone (100 ng/mL) PCP (25 ng/mL) NOTE: These results are for medical treatment only. Analysis performed using non-forensic procedures. POSITIVE results are NOT confirmed by a more specific alternative method unless requested. If confirmation is needed, request confirmation under separate order. [facility] Troponin I.cardiac [Mass/Vol ]on 09-18-2022 Interpretation and review of laboratory results Normal [facility] [place] Patients with high levels of Biotin oral intake (ie >5 mg/day) may have falsely decreased Troponin levels. [facility] Interpretation and review of laboratory results Normal [facility] [place] Patients with high levels of Biotin oral intake (ie >5 mg/day) may have falsely decreased Troponin levels. [facility] Urinalysis complete panel (U )on 09-18-2022 Bacteria LM.HPF (Urine sed) [#/Area] Few Abnormal Negative /HPF [facility] [place] Bilirubin Ql (U) Negative Negative mg/dL [facility] [place] Clarity (U) Clear Clear [facility] [place] Color (U) Yellow Lt. Yellow [facility] [place] Epithelial cells.squamous LM.HPF (Urine sed) [#/Area] 0-2 [facility] h Glucose Ql (U) Normal Normal (<70) mg/dL [facility] [place] Hemoglobin Ql (U) Negative Negative mg/dL [facility] [place] Hyaline casts Auto (Urine sed) [#/Area] 0-2 Abnormal Negative /LPF [facility] Interpretation and review of laboratory results Abnormal [facility] [place] Ketones (U) [Mass/Vol] Negative Negat christiano mg/dL [facility] [place] Leukocyte esterase Test strip Ql (U) 25 Abnormal Negative Soren/uL [facility] [place] Mucus LM.HPF (Urine sed) [#/Area] Many Abnormal Negative /LPF [facility] [place] Nitrite Ql (U) Negative Negative [facility] th pH (U) 6.5 [pH] 5.0 - 8.0 pH [facility] [place] Protein (U) [Mass/Vol] 70 mg/dL Abnormal Negative [facility] RBC LM.HPF (Urine sed) [#/Area] 0-2 [facility] [place] Specific gravity (U) [Rel density] 1.027 1.005 - 1.030 [facility] [place] Urobilinogen (U) [Mass/Vol] Normal Normal (0-1) mg/dL [facility] [place] WBC LM.HPF (Urine sed) [#/Area] 3-5 [facility] Vital signson 09-18-2022 Oxygen saturation in Venous blood 82.1 % High 60.0 - 80.0 % [facility] [place] XR Chest Single viewon 09-18 1. Bilateral perihilar interstitial opacities or infiltrate(s), which may represent acute inflammatory process, slightly decreased in the interval. Follow-up to resolution advised. Report Dictated on Electronically Signed By: Tk Trinh Electronically Signed Date/Time: 09/18/2022 3:20 PM EDT [facility] Patient Name: EL SMITH : 1980 Exam Date/Time: 09/18/2022 15:17 Procedure: XR CHEST 1 VIEW Ordering Provider: SARABIA BRIGID Reason For Exam: shortness of breath CHEST PORTABLE CLINICAL INDICATION: shortness of breath TECHNIQUE: Portable chest x-ray(s). COMPARISON: September,. FINDINGS: Cardiac and mediastinal silhouette within normal limits. Lungs again show patchy, perihilar interstitial opacities or infiltrates, slightly decreased. No apparent pneumothorax. Bony thorax grossly unremarkable. [facility] Tk Trinh MD - 09/18/2022 Patient Name: EL SMITH : 1980 Exam Date/Time: 09/18/2022 15:17 Procedure: XR CHEST 1 VIEW Ordering Provider: SARABIA BRIGID Reason For Exam: shortness of breath CHEST PORTABLE CLINICAL INDICATION: shortness of breath TECHNIQUE: Portable chest x-ray(s). COMPARISON: September,. FINDINGS: Cardiac and mediastinal silhouette within normal limits. Lungs again show patchy, perihilar interstitial opacities or infiltrates, slightly decreased. No apparent pneumothorax. Bony thorax grossly unremarkable. IMPRESSION: 1. Bilateral perihilar interstitial opacities or infiltrate(s), which may represent acute inflammatory process, slightly decreased in the interval. Follow-up to resolution advised. Report Dictated on Electronically Signed By: Tk Trinh Electronically Signed Date/Time: 09/18/2022 3:20 PM EDT [facility] [place] Radiology Study observation (narrative) [facility] XR Chest Single viewOrdered By: Tk Trinh on 09-18-2022 [facility] [employer] Work Phone: Basic metabolic 1998 panelon 09-16-2022 Anion gap [Moles/Vol] 6 mmol/L 3 - 13 mmol/L [facility] [employer] Calcium [Mass/Vol] 8.3 mg/dL Low 8.4 - 10. 4 mg/dL [facility] [employer] Chloride [Moles/Vol] 99 mmol/L 98 - 10 7 mmol/L [facility] [employer] CO2 [Moles/Vol] 33 mmol/L High 22 - 30 mmol/L [facility] [employer] Creatinine [Mass/Vol] 0.63 mg/dL Low 0.66 - 1.25 mg/dL [facility] [place] GFR/1.73 sq M.predicted MDRD (S/P/Bld) [Vol rate/Area] - PINF [facility] [place] Comment on above: Calculation based on the Chronic Kidney Disease Epidemiology Collaboration (CKD-EPI) equation refit without adjustment for race Glucose [Mass/Vol] 110 mg/dL High 70 - 100 mg/dL [facility] [place] Interpretation and review of laboratory results Abnormal [facility] [employer] Potassium [Moles/Vol] 2.9 mmol/L Low 3.5 - 5.1 mmol/L [facility] [employer] Sodium [Moles/Vol] 138 mmol/L 135 - 145 mmol/L [facility] [employer] Urea nitrogen [Mass/Vol] 9 mg/dL 9 - 20 mg/dL [facility] [employer] CBC W Auto Differential pane l (Bld)Ordered By: Monica Kumar on 09-16-2022 Basophils (Bld) [#/Vol] 0.1 10*3/uL 0.0 - 0.2 10*3/uL [facility] Basophils/100 WBC (Bld) 0.5 % 0.0 - 2.0 % [facility] Eosinophils (Bld) [#/Vol] 0.1 10*3/uL 0.0 - 0.5 10*3/uL [facility] Eosinophils/100 WBC (Bld) 0.4 % Low 1.0 - 6.0 % [facility] Erythrocyte distribution width (RBC) [Ratio] 15.0 % High 11.5 - 14.5 % [facility] Hematocrit (Bld) [Volume fraction] 37.8 % Low 40.0 - 52.0 % [facility] Hemoglobin (Bld) [Mass/Vol] 13.0 g/dL 13.0 - 18.0 g/dL [facility] Immature granulocytes (Bld) [#/Vol] 0.1 10*3/uL High NINF - 0.0 10*3/uL [facility] Immature granulocytes/100 WBC (Bld) 0.6 % High NINF - 0.0 % [facility] [place] Interpretation and review of laboratory results Abnormal [facility] Lymphocytes (Bld) [#/Vol] 1.4 10*3/uL 1.0 - 4.3 10*3/uL [facility] Lymphocytes/100 WBC (Bld) 10.5 % Low 20.0 - 40.0 % [facility] [place] MCH (RBC) [Entitic mass] 30.4 pg 26.0 - 34.0 pg [facility] [place] MCHC (RBC) [Mass/Vol] 34.4 % 32.0 - 36.0 % [facility] [place] MCV (RBC) [Entitic vol] 88.5 fL 80.0 - 98.0 fL [facility] Monocytes (Bld) [#/Vol] 0.7 10*3/uL 0.0 - 0.8 10*3/uL [facility] Monocytes/100 WBC (Bld) 5.4 % 2.0 - 10.0 % [facility] Neutrophils (Bld) [#/Vol] 10.9 10*3/uL High 1.8 - 7.0 10*3/uL [facility] Neutrophils/100 WBC (Bld) 82.6 % High 40.0 - 80.0 % [facility] Platelet mean volume (Bld) [Entitic vol] 8.8 fL 7.4 - 12.4 fL [facility] [place] Comment on above: MPV is a calculated measurement using platelet volume ratio Platelets (Bld) [#/Vol] 434 10*3/uL 140 - 440 10*3/uL [facility] [place] RBC (Bld) [#/Vol] 4.27 10*6/uL Low 4.40 - 5.9 0 10*6/uL [facility] [place] WBC (Bld) [#/Vol] 13.1 10*3/uL High 3.6 - 10.7 10*3/uL [facility] Ethanol (Bld) [Mass/Vol]on 0 09-16-2022 Ethanol [Mass/Vol] 0.057 g/dL High 0.000 - 0 .010 g/dL [facility] [place] Interpretation and review of laboratory results Abnormal [facility] Laboratory - Chemistry and C hemistry - challengeon 09-16-2022 Troponin I.cardiac [Mass/Vol] ng/mL 0.000 - 0.034 ng/mL [facility] [place] Lactate [Moles/Vol] 1.3 mmol/L 0.7 - 2. 0 mmol/L [facility] [place] Troponin I.cardiac [Mass/Vol] ng/mL 0.000 - 0.034 ng/mL [facility] [place] No Panel Informationon 09-16 Interpretation and review of laboratory results Normal [facility] P [place] 29 degrees [facility] [place] MI Interval 132 ms [facility] [place] QRS [place] 19 degrees [facility] [place] QRSD Interval 111 ms [facility] QT Interval 405 ms [facility] [place] QTC Interval 499 ms [facility] [place] T Wave [place] 49 degrees [facility] [place] Sinus rhythm Borderline prolonged QT interval Compared to ECG 08/26/2022 09:55:15 Grossly unchanged Electronically Signed On 09-16-2022 3:00:38 EDT by Prince Macias D O - 09/16/2022 IMPRESSION: Sinus rhythm Borderline prolonged QT interval Compared to ECG 08/26/2022 09:55:15 Grossly unchanged Electronically Signed On 09-16-2022 3:00:38 EDT by Prince Alfaro [facility] Troponin I.cardiac [Mass/Vol ]on 09-16-2022 Interpretation and review of laboratory results Normal [facility] [place] Patients with high levels of Biotin oral intake (ie >5 mg/day) may have falsely decreased Troponin levels. [facility] Interpretation and review of laboratory results Normal [facility] [place] Patients with high levels of Biotin oral intake (ie >5 mg/day) may have falsely decreased Troponin levels. [facility] Vital signson 09-16-2022 Heart rate 91 /min bpm [facility] [place] XR Chest Single viewon 09-16 1. Lines/ tubes/ devices: None. 2. Lungs and Pleura: Bilateral parahilar interstitial infiltrates are identified. The vascular pedicle is not widened. No pneumothorax or pleural effusion. 3. Heart and mediastinum: Normal cardiomediastinal margin. 4. Bones: Normal osseous structures. Report Dictated on Electronically Signed By: Naila Dallas Electronically Signed Date/Time: 09/16/2022 1:30 AM EDT [facility] 1980 [id number] Exam Date/Time: 09/16/2022 01:20 Procedure: XR CHEST 1 VIEW Ordering Provider: ALFARO DUSTIN Reason For Exam: CHEST PAIN PORTABLE CHEST CLINICAL INDICATION: Chest pain. COMPARISON: 07/28/2022. TECHNIQUE: A single frontal view of thorax was obtained and reviewed. [facility] Naila Dallas DO - 09/16/2022 Patient Name: EL SMITH : 1980 Exam Date/Time: 09/16/2022 01:20 Procedure: XR CHEST 1 VIEW Ordering Provider: ALFARO DUSTIN Reason For Exam: CHEST PAIN PORTABLE CHEST CLINICAL INDICATION: Chest pain. COMPARISON: 07/28/2022. TECHNIQUE: A single frontal view of thorax was obtained and reviewed. IMPRESSION: 1. Lines/ tubes/ devices: None. 2. Lungs and Pleura: Bilateral parahilar interstitial infiltrates are identified. The vascular pedicle is not widened. No pneumothorax or pleural effusion. 3. Heart and mediastinum: Normal cardiomediastinal margin. 4. Bones: Normal osseous structures. Report Dictated on Electronically Signed By: Naila Dallas Electronically Signed Date/Time: 09/16/2022 1:30 AM EDT [employer] Radiology Study observation (narrative) Tray XR Chest Single viewOrdered By: Naila Dallas on 09-16-2022 [employer] Work Phone: No Panel InformationOrdered By: Renato Vasques on 08-27-2022 P [place] 41 degrees [employer] Work Phone: [place] Interval 134 ms [facility] Work Phone: QRS [place] 37 degrees [employer] Work Phone: QRSD Interval 118 ms [employer] Work Phone: QT Interval 470 ms [employer] Work Phone: QTC Interval 503 ms [employer] Work Phone: T Wave [place] 46 degrees [employer] Work Phone: [employer] Work Phone: No Panel Informationon 08-27 Sinus rhythm Normal [place] Inferior infarct, old Electronically Signed On 08-27-2022 4:30:21 EDT by Renato Vasques CV Renato Gerard MD - 08/27/2022 IMPRESSION: Sinus rhythm Normal [place] Inferior infarct, old Electronically Signed On 08-27-2022 4:30:21 EDT by Renato Vasques [facility] [employer] Vital signsOrdered By: Renato Vasuqes on 08-27-2022 Heart rate 69 /min bpm [employer] Work Phone: CBC W Auto Differential pane l (Bld)on 08-26-2022 Basophils (Bld) [#/Vol] 0.1 10*3/uL 0.0 - 0.2 10*3/uL [facility] [employer] Basophils/100 WBC (Bld) 1.0 % 0.0 - 2.0 % [employer] Eosinophils (Bld) [#/Vol] 0.2 10*3/uL 0.0 - 0.5 10*3/uL [facility] [place] Eosinophils/100 WBC (Bld) 1.5 % 1.0 - 6.0 % [facility] [place] Erythrocyte distribution width (RBC) [Ratio] 16.7 % High 11.5 - 14.5 % [facility] [place] Hematocrit (Bld) [Volume fraction] 45.6 % 40.0 - 52.0 % [facility] [place] Hemoglobin (Bld) [Mass/Vol] 15.0 g/dL 13.0 - 18.0 g/dL [facility] [place] Immature granulocytes (Bld) [#/Vol] 0.1 10*3/uL High NINF - 0.0 10*3/uL [facility] [place] Immature granulocytes/100 WBC (Bld) 0.4 % High NINF - 0.0 % [facility] [place] Interpretation and review of laboratory results Abnormal [facility] [place] Lymphocytes (Bld) [#/Vol] 2.1 10*3/uL 1.0 - 4.3 10*3/uL [facility] [place] Lymphocytes/100 WBC (Bld) 17.6 % Low 20.0 - 40.0 % [facility] [place] MCH (RBC) [Entitic mass] 29.8 pg 26.0 - 34.0 pg [facility] [place] MCHC (RBC) [Mass/Vol] 32.9 % 32.0 - 36.0 % [facility] [place] MCV (RBC) [Entitic vol] 90.5 fL 80.0 - 98.0 fL [facility] [place] Monocytes (Bld) [#/Vol] 0.9 10*3/uL High 0.0 - 0.8 10*3/uL [facility] [place] Monocytes/100 WBC (Bld) 7.0 % 2.0 - 10.0 % [facility] [place] Neutrophils (Bld) [#/Vol] 8.8 10*3/uL High 1.8 - 7.0 10*3/uL [facility] [place] Neutrophils/100 WBC (Bld) 72.5 % 40.0 - 80.0 % [facility] [place] Platelet mean volume (Bld) [Entitic vol] 8.7 fL 7.4 - 12.4 fL [facility] [place] Comment on above: MPV is a calculated measurement using platelet volume ratio Platelets (Bld) [#/Vol] 311 10*3/uL 140 - 440 10*3/uL [facility] [place] RBC (Bld) [#/Vol] 5.04 10*6/uL 4.40 - 5.9 0 10*6/uL [facility] [place] WBC (Bld) [#/Vol] 12.1 10*3/uL High 3.6 - 10.7 10*3/uL [facility] Comprehensive metabolic 1998 panelon 08-26-2022 Albumin [Mass/Vol] 4.2 g/dL 3.5 - 5.0 g/dL [facility] [place] ALP [Catalytic activity/Vol] 164 U/L High 38 - 126 U/L [facility] [place] ALT [Catalytic activity/Vol] 32 U/L 0 - 49 U/L [facility] [place] Anion gap [Moles/Vol] 6 mmol/L 3 - 13 mmol/L [facility] [place] AST [Catalytic activity/Vol] 58 U/L High 15 - 46 U/L [facility] [place] Bilirubin [Mass/Vol] 0.8 mg/dL 0.2 - 1 .3 mg/dL [facility] [place] Calcium [Mass/Vol] 8.7 mg/dL 8.4 - 10. 4 mg/dL [facility] [place] Chloride [Moles/Vol] 97 mmol/L Low 98 - 10 7 mmol/L [facility] [place] CO2 [Moles/Vol] 34 mmol/L High 22 - 30 mmol/L [facility] [place] Creatinine [Mass/Vol] 0.69 mg/dL 0.66 - 1.25 mg/dL [facility] [place] GFR/1.73 sq M.predicted MDRD (S/P/Bld) [Vol rate/Area] - PINF [facility] [place] Comment on above: Calculation based on the Chronic Kidney Disease Epidemiology Collaboration (CKD-EPI) equation refit without adjustment for race Glucose [Mass/Vol] 117 mg/dL High 70 - 100 mg/dL [facility] [place] Interpretation and review of laboratory results Abnormal [facility] [place] Potassium [Moles/Vol] 3.4 mmol/L Low 3.5 - 5.1 mmol/L [facility] [place] Protein [Mass/Vol] 7.7 g/dL 6.3 - 8.2 g/dL [facility] [place] Sodium [Moles/Vol] 137 mmol/L 135 - 145 mmol/L [facility] [place] Urea nitrogen [Mass/Vol] 20 mg/dL 9 - 20 mg/dL [facility] [place] Ethanol (Bld) [Mass/Vol]on 0 08-26-2022 Ethanol [Mass/Vol] g/dL 0.000 - 0 .010 g/dL [facility] [place] Interpretation and review of laboratory results Normal [facility] [place] Laboratory - Chemistry and C hemistry - challengeon 08-26-2022 Troponin I.cardiac [Mass/Vol] ng/mL 0.000 - 0.034 ng/mL [facility] [place] Laboratory - Drug toxicology Ordered By: Soumya Reyes on 08-26-2022 Amphetamines Screen method >1000 ng/mL Ql (U) Negative [facility] [place] Barbiturates Screen method >200 ng/mL Ql (U) Negative [facility] [place] Benzodiazepines Ql (U) Negative [facility] Methadone Screen Ql (U) Positive [facility] Opiates Screen Ql (U) Positive [facility] oxyCODONE Ql (U) Positive [facility] Phencyclidine Ql (U) Negative [facility] Laboratory - Drug toxicology on 08-26-2022 Cannabinoids Screen (U) [Mass/Vol] Positive [facility] [place] Comment on above: THC metabolites have been screened for by Immunoassay at a 50 ng/mL threshold. POSITIVE results are not confirmed by a more specific alternative method unless requested. If confirmation is needed, request confirmation under separate order. NOTE: These results are for medical treatment only. Analysis performed using non-forensic procedures. Laboratory - Microbiology an d Antimicrobial susceptibilityon 08-26-2022 SARS-CoV-2 (COVID-19) Ag IA.rapid Ql (Resp) Negative Negative [facility] Comment on above: A negative result do es not rule out the possibility of SARS-CoV-2 infection. NAAT-based methods should be considered for symptomatic patients presenting greater than seven days after onset of symptoms. Method: Lateral flow immunoassay. Fact sheets for healthcare providers and patients can be found at the following sites: https://www.fda.gov/media/292596/download https://www.fda.gov/media/480360/download No Panel InformationOrdered By: Glenda Angela on 08-26-2022 FENTANYL SCREEN, URINE Negative Negative [facility] Fentanyl has been screened for by Immunoassay at a 1 ng/ml threshold. POSITIVE results are not confirmed by a more specific alternative method unless requested. If confirmation is needed, request confirmation under separate order. NOTE: These results are for medical treatment only. Analysis performed using non-forensic procedures. [facility] No Panel InformationOrdered By: Soumya Reyes on 08-26-2022 COCAINE METAB. SCREEN Negative [facility] The expected value for all of the drugs listed above is Negative. The following drugs or drug groups have been screened for by Immunoassay at the following thresholds: Amphetamine class (1000 ng/mL) Barbiturates (200 ng/mL) Benzodiazepines (200 ng/mL) Cocaine (300 ng/mL) Methadone (300 ng/mL) Opiates (300 ng/mL) Oxycodone (100 ng/mL) PCP (25 ng/mL) NOTE: These results are for medical treatment only. Analysis performed using non-forensic procedures. POSITIVE results are NOT confirmed by a more specific alternative method unless requested. If confirmation is needed, request confirmation under separate order. [facility] No Panel Informationon 08-26 [facility] SARS-CoV-2 (COVID-19) Ag IA. rapid Ql (Resp)on 08-26-2022 Interpretation and review of laboratory results Normal [facility] Troponin I.cardiac [Mass/Vol ]on 08-26-2022 Interpretation and review of laboratory results Normal [facility] [place] Patients with high levels of Biotin oral intake (ie >5 mg/day) may have falsely decreased Troponin levels. [facility] Urinalysis complete panel (U )Ordered By: Debbie Ryan on 08-26-2022 Bacteria LM.HPF (Urine sed) [#/Area] Few Abnormal Negative /HPF [facility] [place] Bilirubin Ql (U) Negative Negative mg/dL [facility] [place] Clarity (U) Clear Clear [facility] [place] Color (U) [place] Abnormal Lt. Yellow [facility] Epithelial cells.squamous LM.HPF (Urine sed) [#/Area] 3-5 [facility] Gl[facility] Ql (U) Normal Normal (<70) mg/dL [facility] [place] Hemoglobin Ql (U) Negative Negative mg/dL [facility] [place] Interpretation and review of laboratory results Abnormal [facility] Ketones (U) [Mass/Vol] 20 mg/dL Abnormal Negative [facility] Leukocyte esterase Test strip Ql (U) 25 Abnormal Negative Soren/uL [facility] [place] Mucus LM.HPF (Urine sed) [#/Area] Few Negative /LPF [facility] Nitrite Ql (U) Negative Negative [facility] th pH (U) 6.5 [pH] 5.0 - 8.0 pH [facility] Protein (U) [Mass/Vol] 70 mg/dL Abnormal Negative [facility] RBC LM.HPF (Urine sed) [#/Area] 0-2 [facility] [place] Specific gravity (U) [Rel density] 1.028 1.005 - 1.030 [facility] [place] Urobilinogen (U) [Mass/Vol] 4 mg/dL Abnormal Normal (0-1) [facility] Volume, Urine 12 mL [facility] WBC LM.HPF (Urine sed) [#/Area] 0-2 [facility] Basic metabolic 1998 panelon 08-06-2022 Anion gap [Moles/Vol] 3 mmol/L 3 - 13 mmol/L [facility] [place] Calcium [Mass/Vol] 7.9 mg/dL Low 8.4 - 10. 4 mg/dL [facility] [place] Chloride [Moles/Vol] 103 mmol/L 98 - 10 7 mmol/L [facility] CO2 [Moles/Vol] 32 mmol/L High 22 - 30 mmol/L [facility] Creatinine [Mass/Vol] 0.68 mg/dL 0.66 - 1.25 mg/dL [facility] GFR/1.73 sq M.predicted MDRD (S/P/Bld) [Vol rate/Area] - PINF [facility] [place] Comment on above: Calculation based on the Chronic Kidney Disease Epidemiology Collaboration (CKD-EPI) equation refit without adjustment for race Glucose [Mass/Vol] 91 mg/dL 70 - 100 mg/dL [facility] [place] Interpretation and review of laboratory results Abnormal [facility] Potassium [Moles/Vol] 3.7 mmol/L 3.5 - 5.1 mmol/L [facility] Sodium [Moles/Vol] 138 mmol/L 135 - 145 mmol/L [facility] [place] Urea nitrogen [Mass/Vol] 13 mg/dL 9 - 20 mg/dL [facility] [place] C-reactive proteinon 023 CRP [Mass/Vol] 5.9 mg/L NINF - 10.0 mg/L [facility] CBC W Auto Differential pane l (Bld)Ordered By: Salina Calvo on 08-06-2022 Basophils (Bld) [#/Vol] 0.1 10*3/uL 0.0 - 0.2 10*3/uL [facility] [place] Basophils/100 WBC (Bld) 1.1 % 0.0 - 2.0 % [facility] Eosinophils (Bld) [#/Vol] 0.3 10*3/uL 0.0 - 0.5 10*3/uL [facility] [place] Eosinophils/100 WBC (Bld) 3.8 % 1.0 - 6.0 % [facility] [place] Erythrocyte distribution width (RBC) [Ratio] 17.2 % High 11.5 - 14.5 % [facility] [place] Hematocrit (Bld) [Volume fraction] 41.2 % 40.0 - 52.0 % [facility] [place] Hemoglobin (Bld) [Mass/Vol] 13.9 g/dL 13.0 - 18.0 g/dL [facility] [place] Immature granulocytes (Bld) [#/Vol] 0.0 10*3/uL NINF - 0.0 10*3/uL [facility] [place] Immature granulocytes/100 WBC (Bld) 0.4 % High NINF - 0.0 % [facility] [place] Interpretation and review of laboratory results Abnormal [facility] [place] Lymphocytes (Bld) [#/Vol] 3.0 10*3/uL 1.0 - 4.3 10*3/uL [facility] [place] Lymphocytes/100 WBC (Bld) 41.4 % High 20.0 - 40.0 % [facility] [place] MCH (RBC) [Entitic mass] 29.7 pg 26.0 - 34.0 pg [facility] [place] MCHC (RBC) [Mass/Vol] 33.7 % 32.0 - 36.0 % [facility] MCV (RBC) [Entitic vol] 88.0 fL 80.0 - 98.0 fL [facility] [place] Monocytes (Bld) [#/Vol] 0.5 10*3/uL 0.0 - 0.8 10*3/uL [facility] [place] Monocytes/100 WBC (Bld) 7.3 % 2.0 - 10.0 % [facility] Neutrophils (Bld) [#/Vol] 3.3 10*3/uL 1.8 - 7.0 10*3/uL [facility] Neutrophils/100 WBC (Bld) 46.0 % 40.0 - 80.0 % [facility] [place] Platelet mean volume (Bld) [Entitic vol] 8.2 fL 7.4 - 12.4 fL [facility] [place] Comment on above: MPV is a calculated measurement using platelet volume ratio Platelets (Bld) [#/Vol] 338 10*3/uL 140 - 440 10*3/uL [facility] [place] RBC (Bld) [#/Vol] 4.68 10*6/uL 4.40 - 5.9 0 10*6/uL [facility] [place] WBC (Bld) [#/Vol] 7.2 10*3/uL 3.6 - 10.7 10*3/uL [facility] CRP [Mass/Vol]on 08-06-2022 Interpretation and review of laboratory results Normal [facility] ESR (Bld) [Velocity]on 08-06 Interpretation and review of laboratory results Normal [facility] Sed Rate 7 [facility] No Panel Informationon 08-06 [facility] [place] Basic metabolic 1998 panelon 07-28-2022 Anion gap [Moles/Vol] 7 mmol/L 3 - 13 mmol/L [facility] [place] Calcium [Mass/Vol] 8.7 mg/dL 8.4 - 10. 4 mg/dL [facility] [place] Chloride [Moles/Vol] 98 mmol/L 98 - 10 7 mmol/L [facility] [place] CO2 [Moles/Vol] 31 mmol/L High 22 - 30 mmol/L [facility] [place] Creatinine [Mass/Vol] 0.61 mg/dL Low 0.66 - 1.25 mg/dL [facility] [place] GFR/1.73 sq M.predicted MDRD (S/P/Bld) [Vol rate/Area] - PINF [facility] [place] Comment on above: Calculation based on the Chronic Kidney Disease Epidemiology Collaboration (CKD-EPI) equation refit without adjustment for race Glucose [Mass/Vol] 93 mg/dL 70 - 100 mg/dL [facility] [place] Interpretation and review of laboratory results Abnormal [facility] [place] Potassium [Moles/Vol] 3.2 mmol/L Low 3.5 - 5.1 mmol/L [facility] Sodium [Moles/Vol] 136 mmol/L 135 - 145 mmol/L [facility] Urea nitrogen [Mass/Vol] 19 mg/dL 9 - 20 mg/dL [facility] [place] CBC W Auto Differential pane l (Bld)Ordered By: Frannie Manzanares on 07-28-2022 Basophils (Bld) [#/Vol] 0.1 10*3/uL 0.0 - 0.2 10*3/uL [facility] Basophils/100 WBC (Bld) 0.9 % 0.0 - 2.0 % [facility] Eosinophils (Bld) [#/Vol] 0.1 10*3/uL 0.0 - 0.5 10*3/uL [facility] Eosinophils/100 WBC (Bld) 0.7 % Low 1.0 - 6.0 % [facility] [place] Erythrocyte distribution width (RBC) [Ratio] 16.3 % High 11.5 - 14.5 % [facility] [place] Hematocrit (Bld) [Volume fraction] 45.2 % 40.0 - 52.0 % [facility] Hemoglobin (Bld) [Mass/Vol] 15.2 g/dL 13.0 - 18.0 g/dL [facility] Immature granulocytes (Bld) [#/Vol] 0.1 10*3/uL High NINF - 0.0 10*3/uL [facility] Immature granulocytes/100 WBC (Bld) 0.4 % High NINF - 0.0 % [facility] [place] Interpretation and review of laboratory results Abnormal [facility] Lymphocytes (Bld) [#/Vol] 3.8 10*3/uL 1.0 - 4.3 10*3/uL [facility] Lymphocytes/100 WBC (Bld) 30.0 % 20.0 - 40.0 % [facility] MCH (RBC) [Entitic mass] 28.7 pg 26.0 - 34.0 pg [facility] MCHC (RBC) [Mass/Vol] 33.6 % 32.0 - 36.0 % [facility] MCV (RBC) [Entitic vol] 85.4 fL 80.0 - 98.0 fL [facility] Monocytes (Bld) [#/Vol] 0.9 10*3/uL High 0.0 - 0.8 10*3/uL [facility] Monocytes/100 WBC (Bld) 7.1 % 2.0 - 10.0 % [facility] Neutrophils (Bld) [#/Vol] 7.7 10*3/uL High 1.8 - 7.0 10*3/uL [facility] Neutrophils/100 WBC (Bld) 60.9 % 40.0 - 80.0 % [facility] Platelet mean volume (Bld) [Entitic vol] 8.6 fL 7.4 - 12.4 fL [facility] [place] Comment on above: MPV is a calculated measurement using platelet volume ratio Platelets (Bld) [#/Vol] 406 10*3/uL 140 - 440 10*3/uL [facility] RBC (Bld) [#/Vol] 5.29 10*6/uL 4.40 - 5.9 0 10*6/uL [facility] WBC (Bld) [#/Vol] 12.6 10*3/uL High 3.6 - 10.7 10*3/uL [facility] Laboratory - Chemistry and C hemistry - challengeon 07-28-2022 Troponin I.cardiac [Mass/Vol] ng/mL 0.000 - 0.034 ng/mL [facility] Magnesium [Mass/Vol] 1.8 mg/dL 1.6 - 2 .3 mg/dL [facility] [place] Magnesium [Mass/Vol]on 07-28 Interpretation and review of laboratory results Normal [facility] No Panel Informationon 07-28 [facility] P [place] 42 degrees [facility] MI Interval 129 ms [facility] QRS [place] 38 degrees [facility] QRSD Interval 110 ms [facility] QT Interval 388 ms [facility] QTC Interval 479 ms [facility] T Wave [place] 69 degrees [facility] Betsy Rain MD - 07/28/2022 IMPRESSION: Sinus rhythm Abnormal R-wave progression, early transition Probable inferior infarct, 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 [facility] Vital signson 07-28-2022 Heart rate 92 /min bpm [facility] XR Chest Single viewon 07-28 FINDINGS/IMPRESSION: Limitations: No significant limitations. Lines, tubes, and devices: None Cardiomediastinal silhouette: Heart size is within normal limits. Lungs/Pleura: Bibasilar atelectasis/scarring. Apparent ovoid nodular opacity in the region of the lingula could reflect summation artifact from rib shadow. Small focus of airspace disease or other etiology is also possible. Recommend follow-up to ensure resolution. No sizable pleural effusions. No pneumothorax Osseous structures: Degenerative spondylosis in the visualized spine. Soft tissues: No soft tissue abnormality is detected. Report Dictated on Electronically Signed By: Mark Finnegan Electronically Signed Date/Time: 07/28/2022 10:01 PM EDT [facility] Patient Name: EL SMITH : 1980 Exam Date/Time: 07/28/2022 21:55 Procedure: XR CHEST 1 VIEW Ordering Provider: RAIN MICHAEL Reason For Exam: CHEST PAIN CHEST - PORTABLE: CLINICAL INDICATION: Chest pain. . TECHNIQUE: Portable AP COMPARISON: 05/10/2022 [facility] Fe Finnegan MD - 07/28/2022 Patient Name: EL SMITH : 1980 Exam Date/Time: 07/28/2022 21:55 Procedure: XR CHEST 1 VIEW Ordering Provider: RAIN MICHAEL Reason For Exam: CHEST PAIN CHEST - PORTABLE: CLINICAL INDICATION: Chest pain. . TECHNIQUE: Portable AP COMPARISON: 05/10/2022 IMPRESSION: FINDINGS/IMPRESSION: Limitations: No significant limitations. Lines, tubes, and devices: None Cardiomediastinal silhouette: Heart size is within normal limits. Lungs/Pleura: Bibasilar atelectasis/scarring. Apparent ovoid nodular opacity in the region of the lingula could reflect summation artifact from rib shadow. Small focus of airspace disease or other etiology is also possible. Recommend follow-up to ensure resolution. No sizable pleural effusions. No pneumothorax Osseous structures: Degenerative spondylosis in the visualized spine. Soft tissues: No soft tissue abnormality is detected. Report Dictated on Electronically Signed By: Mark Finnegan Electronically Signed Date/Time: 07/28/2022 10:01 PM EDT [facility] Radiology Study observation (narrative) Deandre tejeda XR Chest Single viewOrdered By: Fe Finnegan on 07-28-2022 [facility] [employer] Work Phone: XR Chest 2 Viewson 3 No acute cardiopulmonary abnormality identified. Report Dictated on Electronically Signed By: Phillip Oshea Electronically Signed Date/Time: 05/10/2022 1:02 PM EST [facility] Patient Name: EL SMITH Exam Date/Time: 05/10/2022 12:55 Procedure: XR CHEST 2 VIEWS Ordering Provider: RUSHING NICHOLAS Reason For Exam: EXAMINATION: XR chest PA and lateral. EXAM DATE & TIME: 05/10/2022 12:55 PM EST INDICATION: CHEST PAIN ADDITIONAL INFORMATION: 41-year-old male with chest pain presents for evaluation COMPARISON: Chest radiograph dated 09/23/2021 TECHNIQUE: Frontal and lateral views of the chest were obtained. FINDINGS: The cardiomediastinal silhouette is within normal limits. There is mild pulmonary vascular congestion. No focal consolidation, pleural effusion or pneumothorax. No acute osseous abnormality is demonstrated. [facility] Phillip Oshea MD - 05/10/2022 Patient Name: EL SMITH Exam Date/Time: 05/10/2022 12:55 Procedure: XR CHEST 2 VIEWS Ordering Provider: RUSHING NICHOLAS Reason For Exam: EXAMINATION: XR chest PA and lateral. EXAM DATE & TIME: 05/10/2022 12:55 PM EST INDICATION: CHEST PAIN ADDITIONAL INFORMATION: 41-year-old male with chest pain presents for evaluation COMPARISON: Chest radiograph dated 09/23/2021 TECHNIQUE: Frontal and lateral views of the chest were obtained. FINDINGS: The cardiomediastinal silhouette is within normal limits. There is mild pulmonary vascular congestion. No focal consolidation, pleural effusion or pneumothorax. No acute osseous abnormality is demonstrated. IMPRESSION: No acute cardiopulmonary abnormality identified. Report Dictated on Electronically Signed By: Phillip Oshea Electronically Signed Date/Time: 05/10/2022 1:02 PM EST [facility] Radiology Study observation (narrative) Deandre He alth XR Chest 2 ViewsOrdered By: Phillip Oshea on 05-10-2022 [facility] Work Phone: XR Hip - left 3 Viewson No acute osseous abnormality identified. Report Dictated on Electronically Signed By: Phillip Oshea Electronically Signed Date/Time: 04/24/2022 4:59 PM EST [facility] Patient Name: EL SMITH Exam Date/Time: 04/24/2022 15:56 Procedure: XR HIP 2 OR 3 VW LEFT Ordering Provider: TOLEDO JOSEPH Reason For Exam: EXAMINATION: XR left hip. EXAM DATE & TIME: 04/24/2022 3:56 PM EST INDICATION: Hip trauma, fracture suspected, no prior imaging ADDITIONAL INFORMATION: 41-year-old male with hip trauma and left hip fracture suspected presents for evaluation COMPARISON: Left hip radiographs dated 03/13/2020 and right hip radiographs dated 06/06/2020 TECHNIQUE: AP and frog-leg lateral views of the left hip were obtained. AP view encompasses the entirety of the pelvis. FINDINGS: No acute fracture or traumatic dislocation is identified. The bones are well-mineralized and the joint spaces are satisfactorily maintained. No focal soft tissue abnormality is demonstrated. [facility] Phillip Oshea MD - 04/24/2022 Patient Name: EL SMITH Exam Date/Time: 04/24/2022 15:56 Procedure: XR HIP 2 OR 3 VW LEFT Ordering Provider: TOLEDO JOSEPH Reason For Exam: EXAMINATION: XR left hip. EXAM DATE & TIME: 04/24/2022 3:56 PM EST INDICATION: Hip trauma, fracture suspected, no prior imaging ADDITIONAL INFORMATION: 41-year-old male with hip trauma and left hip fracture suspected presents for evaluation COMPARISON: Left hip radiographs dated 03/13/2020 and right hip radiographs dated 06/06/2020 TECHNIQUE: AP and frog-leg lateral views of the left hip were obtained. AP view encompasses the entirety of the pelvis. FINDINGS: No acute fracture or traumatic dislocation is identified. The bones are well-mineralized and the joint spaces are satisfactorily maintained. No focal soft tissue abnormality is demonstrated. IMPRESSION: No acute osseous abnormality identified. Report Dictated on Electronically Signed By: Phillip Oshea Electronically Signed Date/Time: 04/24/2022 4:59 PM EST [facility] [employer] Radiology Study observation (narrative) [facility] XR Hip - left 3 ViewsOrdered By: Phillip Oshea on 04-24-2022 [employer] Work Phone: CULTURE BLOODon 09-27-2021 Microscopic examination of blood, culture CULTURE BLOOD --> Status: F Coagulase negative Staphylococcus species DETECTED. Presumptive identification performed using [employer] PCR methodology; confirmatory identification to follow. _ The [employer] BCID2 PCR Panel can detect the following targets: E. faecalis, E. faecium, Staphylococcus spp., S. aureus, S. epidermidis, S. lugdunensis, Streptococcus spp., S. pyogenes (Group A), S. agalactiae (Group B), S. pneumoniae, A. baumannii complex, B. fragilis, H. influenzae, N. meningitidis (encapsulated), P. aeruginosa, S. maltophilia, Enterobacterales, E. cloacae complex, E. coli, K. aerogenes, K. oxytoca, K. pneumoniae, Proteus spp., Salmonella spp., S. marcescens, C. albicans, C. auris, C. glabrata, C. krusei, C. parapsilosis, C. tropicalis, C. neoformans/gattii, and antimicrobial resistance genes: mecA/C, Shivam/B, CTX-M, IMP, KPC, NDM, OXA-48-like, VIM, and mcr-1. Presumptive identification performed using [employer] PCR methodology; confirmatory identification to follow. _ The [employer] BCID2 PCR Panel can detect the following targets: E. faecalis, E. faecium, Staphylococcus spp., S. aureus, S. epidermidis, S. lugdunensis, Streptococcus spp., S. pyogenes (Group A), S. agalactiae (Group B), S. pneumoniae, A. baumannii complex, B. fragilis, H. influenzae, N. meningitidis (encapsulated), P. aeruginosa, S. maltophilia, Enterobacterales, E. cloacae complex, E. coli, K. aerogenes, K. oxytoca, K. pneumoniae, Proteus spp., Salmonella spp., S. marcescens, C. albicans, C. auris, C. glabrata, C. krusei, C. parapsilosis, C. tropicalis, C. neoformans/gattii, and antimicrobial resistance genes: mecA/C, Shivam/B, CTX-M, IMP, KPC, NDM, OXA-48-like, VIM, and mcr-1. 1 Organism (Coagulase-negative) Staphylococcus hominis Isolated: Contamination likely unless additional blood culture sets are found to be positive with the same organism. Normal [facility] Comment on above: Performed By: #### C UA2, DRGA4 #### [address] CULTURE BLOOD (Two)on 2021 Microscopic examination of blood, culture 1 Organism (Coagulase-negative) Staphylococcus epidermidis Isolated: Contamination likely unless additional blood culture sets are found to be positive with the same organism. Normal [facility] Comment on above: Performed By: #### C UA2, DRGA4 #### [address] Basic Metabolic Panelon 06- Anion gap [Moles/Vol] 6 mmol/L Normal 3-13 [facility] Comment on above: Performed By: #### T ROPN, MG3, HEMDF, BMP3, PCAL #### [address] Calcium [Mass/Vol] 8.6 mg/dL Normal 8.4-10.4 [facility] Comment on above: Performed By: #### T ROPN, MG3, HEMDF, BMP3, PCAL #### [address] CO2 [Moles/Vol] 26 mmol/L Normal 22-30 [facility] Comment on above: Performed By: #### T ROPN, MG3, HEMDF, BMP3, PCAL #### [facility] [address] [place], [place] Creatinine [Mass/Vol] 0.72 mg/dL Normal 0.52-1.25 [facility] Comment on above: Performed By: #### T ROPN, MG3, HEMDF, BMP3, PCAL #### [facility] [address] [place], [place] eGFR OTHER > 90.0 Normal >60 [facility] Comment on above: Result Comment: KDIG O guidelines provide the following GFR categories: Stage GFR(ml/min/1.73 m2) Terms G1 >=90 Normal or high G2 60-89 Mildly decreased* G3a 45-59 Mildly to moderately decreased G3b 30-44 Moderately to severely decreased G4 15-29 Severely decreased G5 <15 Kidney failure *Relative to young adult level. In the absence of evidence of kidney damage, neither GFR category G1 nor G2 fulfill the criteria for CKD. The CKD-EPI equation is validated in individuals 18 years of age and older. Currently the best equation for estimating glomerular filtration rate (GFR) from serum creatinine in children is the Bedside Finch equation. It is less accurate in patients with extremes of muscle mass, restriction of dietary protein, ingestion of creatine, extra-renal metabolism of creatinine, or treatment with medications that affect renal tubular creatinine secretion. Performed By: #### T ROPN, MG3, HEMDF, BMP3, PCAL #### [facility] [address] [place], [place] GFR/1.73 sq M.predicted among blacks MDRD (S/P/Bld) [Vol rate/Area] mL/min/{1.73_m2} Normal >60 [facility] Comment on above: Performed By: #### T ROPN, MG3, HEMDF, BMP3, PCAL #### [facility] [address] [place], [place] Glucose [Mass/Vol] 109 mg/dL High 70-100 [facility] Comment on above: Performed By: #### T ROPN, MG3, HEMDF, BMP3, PCAL #### [place] [address] [place], [place] Urea nitrogen [Mass/Vol] 25 mg/dL High 7-17 [facility] Comment on above: Performed By: #### T ROPN, MG3, HEMDF, BMP3, PCAL #### [address] [place], [place] Chloride [Moles/Vol] 102 mmol/L Normal 98-107 [facility] Comment on above: Performed By: #### T ROPN, MG3, HEMDF, BMP3, PCAL #### [address] [place], [place] Potassium [Moles/Vol] 3.4 mmol/L Low 3.5-5.1 [facility] Comment on above: Performed By: #### T ROPN, MG3, HEMDF, BMP3, PCAL #### [address] [place], [place] Sodium [Moles/Vol] 134 mmol/L Low 135-145 [facility] Comment on above: Performed By: #### T ROPN, MG3, HEMDF, BMP3, PCAL #### [address] [place], [place] Anion gap [Moles/Vol] 6 mmol/L 3 - 13 mmol/L [facility] Calcium [Mass/Vol] 8.6 mg/dL 8.4 - 10. 4 mg/dL [facility] Chloride [Moles/Vol] 102 mmol/L 98 - 10 7 mmol/L [facility] CO2 [Moles/Vol] 26 mmol/L 22 - 30 mmol/L [facility] Creatinine [Mass/Vol] 0.72 mg/dL 0.52 - 1.25 mg/dL [facility] EGFR IF NonAfrican Venezuelan >90.0 >60 mL/min [facility] Comment on above: KDIGO guidelines pro vide the following GFR categories: Stage GFR(ml/min/1.73 m2) Terms G1 >=90 Normal or high G2 60-89 Mildly decreased* G3a 45-59 Mildly to moderately decreased G3b 30-44 Moderately to severely decreased G4 15-29 Severely decreased G5 <15 Kidney failure *Relative to young adult level. In the absence of evidence of kidney damage, neither GFR category G1 nor G2 fulfill the criteria for CKD. The CKD-EPI equation is validated in individuals 18 years of age and older. Currently the best equation for estimating glomerular filtration rate (GFR) from serum creatinine in children is the Bedside Finch equation. It is less accurate in patients with extremes of muscle mass, restriction of dietary protein, ingestion of creatine, extra-renal metabolism of creatinine, or treatment with medications that affect renal tubular creatinine secretion. GFR/1.73 sq M.predicted among blacks MDRD (S/P/Bld) [Vol rate/Area] mL/min/{1.73_m2} >60 mL/min [facility] Glucose [Mass/Vol] 109 mg/dL High 70 - 100 mg/dL [facility] Interpretation and review of laboratory results Abnormal [facility] Potassium [Moles/Vol] 3.4 mmol/L Low 3.5 - 5.1 mmol/L [facility] Sodium [Moles/Vol] 134 mmol/L Low 135 - 145 mmol/L [facility] Urea nitrogen (BldV) [Mass/Vol] 25 mg/dL High 7 - 17 mg/dL [facility] CBC with Auto Differentialon 09-25-2021 Absolute Baso # 0.1 10*3/uL 0.0 - 0.2 10*3/uL [facility] Absolute Neut # 7.6 10*3/uL High 1.8 - 7.0 10*3/uL [facility] Basophils/100 WBC (Bld) 1.2 % 0.0 - 2.0 % [facility] Eosinophils (Bld) [#/Vol] 0.0 10*3/uL 0.0 - 0.5 10*3/uL [facility] Eosinophils/100 WBC (Bld) 0.2 % Low 1.0 - 6.0 % [facility] Granulocytes/100 WBC (Bld) 68.4 % 40.0 - 80.0 % [facility] Hematocrit (Bld) [Volume fraction] 40.4 % 40.0 - 52.0 % [facility] Hemoglobin (Bld) [Mass/Vol] 13.4 g/dL 13.0 - 18.0 g/dL [facility] Interpretation and review of laboratory results Abnormal [facility] Lymphocytes (Bld) [#/Vol] 2.4 10*3/uL 1.0 - 4.3 10*3/uL [facility] Lymphocytes/100 WBC (Bld) 21.3 % 20.0 - 40.0 % [facility] MCH (RBC) [Entitic mass] 26.2 pg 26.0 - 34.0 pg [facility] MCHC (RBC) [Mass/Vol] 33.3 % 32.0 - 36.0 % [facility] MCV (RBC) [Entitic vol] 78.7 fL Low 80.0 - 98.0 fL [facility] Monocytes (Bld) [#/Vol] 1.0 10*3/uL High 0.0 - 0.8 10*3/uL [facility] Monocytes/100 WBC (Bld) 8.9 % 2.0 - 10.0 % [facility] Platelet distribution width (Bld) [Ratio] 19.1 % High 11.5 - 14.5 % [facility] Platelet mean volume (Bld) [Entitic vol] 7.1 fL Low 7.4 - 12.4 fL [facility] Comment on above: MPV is a calculated measurement using platelet volume ratio. 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1980 Requested By: LOC MCKINNEY Order Number: [id number] Karlos MD: Ashlyn Wilson Measurements Intervals [place] Rate: 85 P: 47 MI: 125 QRS: 41 QRSD: 102 T: 17 QT: 393 QTc: 468 Interpretive Statements Sinus rhythm Minimal ST elevation, inferior leads Electronically Signed On 09-25-2021 8:46:47 EDT by Ashlyn Wilson [facility] CARDIOLOGY Ashlyn Wilson MD - 09/25/2021 [facility] Test Date: 2021-09-25 Pat Name: EL SMITH Department: 1AHLU Room: [facility] Gender: M 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1980 Requested By: LOC MCKINNEY Order Number: [id number] Reading MD: Ashlyn Wilson Measurements Intervals [place] Rate: 85 P: 47 MI: 125 QRS: 41 QRSD: 102 T: 17 QT: 393 QTc: 468 Interpretive Statements Sinus rhythm Minimal ST elevation, inferior leads Electronically Signed On 09-25-2021 8:46:47 EDT by Ashlyn Wilson [facility] Work Phone: EKG 12 LeadOrdered By: Jaymie Wilson on 09-25-2021 [facility] Work Phone: Hemogram w/ Autodiffon 09-25 Abs Baso Cnt 0.1 10*3/uL Normal 0.0-0.2 [facility] Comment on above: Performed By: #### T ROPN, MG3, HEMDF, BMP3, PCAL #### [facility] [employer] [facility] [address] [place] [address] Abs Neutrophile Cnt 7.6 10*3/uL High 1.8-7.0 [facility] Comment on above: Performed By: #### T ROPN, MG3, HEMDF, BMP3, PCAL #### [facility] [employer] [facility] [address] [place] [address] Basophils/100 WBC (Bld) 1.2 % Normal 0.0-2.0 [facility] Comment on above: Performed By: #### T ROPN, MG3, HEMDF, BMP3, PCAL #### [facility] [address] [place] [address] Eosinophils (Bld) [#/Vol] 0.0 10*3/uL Normal 0.0-0.5 [facility] Comment on above: Performed By: #### T ROPN, MG3, HEMDF, BMP3, PCAL #### [address] [place], [place] Eosinophils/100 WBC (Bld) 0.2 % Low 1.0-6.0 [facility] Comment on above: Performed By: #### T ROPN, MG3, HEMDF, BMP3, PCAL #### [address] [place], [place] Erythrocyte distribution width (RBC) [Ratio] 19.1 % High 11.5-14.5 [facility] Comment on above: Performed By: #### T ROPN, MG3, HEMDF, BMP3, PCAL #### [address] [place], [place] Granulocytes/100 WBC (Bld) 68.4 % Normal 40.0-80.0 [facility] Comment on above: Performed By: #### T ROPN, MG3, HEMDF, BMP3, PCAL #### [address] [place], [place] Hematocrit (Bld) [Volume fraction] 40.4 % Normal 40.0-52.0 [facility] Comment on above: Performed By: #### T ROPN, MG3, HEMDF, BMP3, PCAL #### [address] [place], [place] Hemoglobin (Bld) [Mass/Vol] 13.4 g/dL Normal 13.0-18.0 [facility] Comment on above: Performed By: #### T ROPN, MG3, HEMDF, BMP3, PCAL #### [address] [place], [place] Lymphocytes (Bld) [#/Vol] 2.4 10*3/uL Normal 1.0-4.3 [facility] Comment on above: Performed By: #### T ROPN, MG3, HEMDF, BMP3, PCAL #### [address] [place], [place] Lymphocytes/100 WBC (Bld) 21.3 % Normal 20.0-40.0 [facility] Comment on above: Performed By: #### T ROPN, MG3, HEMDF, BMP3, PCAL #### [address] [place], [place] MCH (RBC) [Entitic mass] 26.2 pg Normal 26.0-34.0 [facility] Comment on above: Performed By: #### T ROPN, MG3, HEMDF, BMP3, PCAL #### [address] [address] [place], [place] MCHC 33.3 % Normal 32.0-36.0 [facility] Comment on above: Performed By: #### T ROPN, MG3, HEMDF, BMP3, PCAL #### [address] MCV (RBC) [Entitic vol] 78.7 fL Low 80.0-98.0 [facility] Comment on above: Performed By: #### T ROPN, MG3, HEMDF, BMP3, PCAL #### [address] Monocytes (Bld) [#/Vol] 1.0 10*3/uL High 0.0-0.8 [facility] Comment on above: Performed By: #### T ROPN, MG3, HEMDF, BMP3, PCAL #### [address] Monocytes/100 WBC (Bld) 8.9 % Normal 2.0-10.0 [facility] Comment on above: Performed By: #### T ROPN, MG3, HEMDF, BMP3, PCAL #### [address] [place], [place] Platelet mean volume (Bld) [Entitic vol] 7.1 fL Low 7.4-12.4 [facility] Comment on above: Result Comment: MPV is a calculated measurement using platelet volume ratio. Performed By: #### T ROPN, MG3, HEMDF, BMP3, PCAL #### [address] [place], [place] Platelets (Bld) [#/Vol] 430 10*3/uL Normal 140-440 [facility] Comment on above: Performed By: #### T ROPN, MG3, HEMDF, BMP3, PCAL #### [address] RBC (Bld) [#/Vol] 5.13 10*6/uL Normal 4.40-5.90 [facility] Comment on above: Performed By: #### T ROPN, MG3, HEMDF, BMP3, PCAL #### [address] [address] [place] WBC (Bld) [#/Vol] 11.2 10*3/uL High 3.6-10.7 [facility] Comment on above: Performed By: #### T ROPN, MG3, HEMDF, BMP3, PCAL #### [address] [address] [place], [place] Magnesiumon 09-25-2021 Magnesium [Mass/Vol] 2.2 mg/dL Normal 1.6-2.3 [facility] Comment on above: Performed By: #### T ROPN, MG3, HEMDF, BMP3, PCAL #### [address] Magnesium [Mass/Vol] 2.2 mg/dL 1.6 - 2 .3 mg/dL [facility] No Panel Informationon 09-25 Test Performed by [facility], [facility] [place], [place] [id number] [place] [address] LAB [facility] Procalcitoninon 09-25-2021 Procalcitonin 0.07 ng/mL Normal 0.00-0.09 [facility] Comment on above: Performed By: #### C UA2, DRGA4 #### [address] Interpretation See Below Normal [facility] Comment on above: Result Comment: PCT <0.50 = Low risk of severe sepsis and/or septic shock. PCT >2.00 = High risk of severe sepsis and/or septic shock. Performed By: #### C UA2, DRGA4 #### [address] Interpretation See Below [facility] Comment on above: PCT <0.50 = Low risk of severe sepsis and/or septic shock. PCT >2.00 = High risk of severe sepsis and/or septic shock. Procalcitonin 0.07 ng/mL 0.00 - 0.09 ng/mL [facility] Test Performed by [address] LAB [facility] Troponinon 09-25-2021 Interpretation and review of laboratory results Abnormal [facility] Troponin I.cardiac [Mass/Vol] 8.740 ng/mL High 0.000 - 0.034 ng/mL [facility] Comment on above: . Test Performed by [address] LAB [facility] Troponin Ion 09-25-2021 Troponin I.cardiac [Mass/Vol] 8.740 ng/mL High 0.000-0.034 [facility] Comment on above: Result Comment: . Performed By: #### T ROPN, MG3, HEMDF, BMP3, PCAL #### [address] Add on test from HISon 09-24 Add on test from HIS Accepted Normal [facility] Comment on above: Result Comment: Spec imen available & acceptable for analysis. Performed By: #### A DDON #### [facility] [address] [facility] [place] [address] Add on test from HIS Accepted Normal [facility] Comment on above: Result Comment: Spec imen available & acceptable for analysis. Performed By: #### A DDON #### [facility] [address] [facility] [place] [address] Basic Metabolic Panelon 06-0 Anion gap [Moles/Vol] 5 mmol/L Normal 3-13 [facility] Comment on above: Performed By: #### B MP3, TROPN #### [address] [place], [place] Calcium [Mass/Vol] 8.6 mg/dL Normal 8.4-10.4 [facility] Comment on above: Performed By: #### B MP3, TROPN #### [facility] [address] [place], [place] CO2 [Moles/Vol] 28 mmol/L Normal 22-30 [facility] Comment on above: Performed By: #### B MP3, TROPN #### [facility] [address] [place], [place] Glucose [Mass/Vol] 126 mg/dL High 70-100 [facility] Comment on above: Performed By: #### B MP3, TROPN #### [facility] [address] [place], [place] Urea nitrogen [Mass/Vol] 18 mg/dL High 7-17 [facility] Comment on above: Performed By: #### B MP3, TROPN #### [facility] [address] [place], [place] Creatinine [Mass/Vol] 0.67 mg/dL Normal 0.52-1.25 [facility] Comment on above: Performed By: #### B MP3, TROPN #### [facility] [address] [place], [place] eGFR OTHER > 90.0 Normal >60 [facility] Comment on above: Result Comment: KDIG O guidelines provide the following GFR categories: Stage GFR(ml/min/1.73 m2) Terms G1 >=90 Normal or high G2 60-89 Mildly decreased* G3a 45-59 Mildly to moderately decreased G3b 30-44 Moderately to severely decreased G4 15-29 Severely decreased G5 <15 Kidney failure *Relative to young adult level. In the absence of evidence of kidney damage, neither GFR category G1 nor G2 fulfill the criteria for CKD. The CKD-EPI equation is validated in individuals 18 years of age and older. Currently the best equation for estimating glomerular filtration rate (GFR) from serum creatinine in children is the Bedside Finch equation. It is less accurate in patients with extremes of muscle mass, restriction of dietary protein, ingestion of creatine, extra-renal metabolism of creatinine, or treatment with medications that affect renal tubular creatinine secretion. Performed By: #### B MP3, TROPN #### [address] [place], [place] GFR/1.73 sq M.predicted among blacks MDRD (S/P/Bld) [Vol rate/Area] mL/min/{1.73_m2} Normal >60 [facility] Comment on above: Performed By: #### B MP3, TROPN #### [address] [place], [place] Potassium [Moles/Vol] 3.7 mmol/L Normal 3.5-5.1 [facility] Comment on above: Performed By: #### Danna MP3, TROPN #### [address] [address] [place], [place] Sodium [Moles/Vol] 134 mmol/L Low 135-145 [facility] Comment on above: Performed By: #### Danna MP3, TROPN #### [address] [place], [place] Chloride [Moles/Vol] 101 mmol/L Normal 98-107 [facility] Comment on above: Performed By: #### B MP3, TROPN #### [address] [address] [place], [place] Anion gap [Moles/Vol] 5 mmol/L 3 - 13 mmol/L [facility] Calcium [Mass/Vol] 8.6 mg/dL 8.4 - 10. 4 mg/dL [facility] Chloride [Moles/Vol] 101 mmol/L 98 - 10 7 mmol/L [facility] CO2 [Moles/Vol] 28 mmol/L 22 - 30 mmol/L [facility] Creatinine [Mass/Vol] 0.67 mg/dL 0.52 - 1.25 mg/dL [facility] EGFR IF NonAfrican Venezuelan >90.0 >60 mL/min [facility] Comment on above: KDIGO guidelines pro vide the following GFR categories: Stage GFR(ml/min/1.73 m2) Terms G1 >=90 Normal or high G2 60-89 Mildly decreased* G3a 45-59 Mildly to moderately decreased G3b 30-44 Moderately to severely decreased G4 15-29 Severely decreased G5 <15 Kidney failure *Relative to young adult level. In the absence of evidence of kidney damage, neither GFR category G1 nor G2 fulfill the criteria for CKD. The CKD-EPI equation is validated in individuals 18 years of age and older. Currently the best equation for estimating glomerular filtration rate (GFR) from serum creatinine in children is the Bedside Finch equation. It is less accurate in patients with extremes of muscle mass, restriction of dietary protein, ingestion of creatine, extra-renal metabolism of creatinine, or treatment with medications that affect renal tubular creatinine secretion. GFR/1.73 sq M.predicted among blacks MDRD (S/P/Bld) [Vol rate/Area] mL/min/{1.73_m2} >60 mL/min [facility] Glucose [Mass/Vol] 126 mg/dL High 70 - 100 mg/dL [facility] Interpretation and review of laboratory results Abnormal [facility] Potassium [Moles/Vol] 3.7 mmol/L 3.5 - 5.1 mmol/L [facility] Sodium [Moles/Vol] 134 mmol/L Low 135 - 145 mmol/L [facility] Urea nitrogen (BldV) [Mass/Vol] 18 mg/dL High 7 - 17 mg/dL [facility] Test Performed by [facility], [address] [place] [address] [facility] Anion gap [Moles/Vol] 16 mmol/L High 3-13 [facility] Comment on above: Performed By: #### B MP3, TROPN #### [address] [address] Calcium [Mass/Vol] 9.1 mg/dL Normal 8.4-10.4 [facility] Comment on above: Performed By: #### B MP3, TROPN #### [address] [address] [place] [address] CO2 [Moles/Vol] 21 mmol/L Low 22-30 [facility] Comment on above: Performed By: #### B MP3, TROPN #### [address] [address] [place] [address] Glucose [Mass/Vol] 151 mg/dL High 70-100 [facility] Comment on above: Performed By: #### B MP3, TROPN #### [facility] [address] [place], [place] Urea nitrogen [Mass/Vol] 12 mg/dL Normal 7-17 [facility] Comment on above: Performed By: #### B MELISSA3, TROPN #### [facility] [address] [place], [place] Creatinine [Mass/Vol] 0.76 mg/dL Normal 0.52-1.25 [facility] Comment on above: Performed By: #### B MP3, TROPN #### [facility] [address] [place], [place] eGFR OTHER > 90.0 Normal >60 [facility] Comment on above: Result Comment: KDIG O guidelines provide the following GFR categories: Stage GFR(ml/min/1.73 m2) Terms G1 >=90 Normal or high G2 60-89 Mildly decreased* G3a 45-59 Mildly to moderately decreased G3b 30-44 Moderately to severely decreased G4 15-29 Severely decreased G5 <15 Kidney failure *Relative to young adult level. In the absence of evidence of kidney damage, neither GFR category G1 nor G2 fulfill the criteria for CKD. The CKD-EPI equation is validated in individuals 18 years of age and older. Currently the best equation for estimating glomerular filtration rate (GFR) from serum creatinine in children is the Bedside Finch equation. It is less accurate in patients with extremes of muscle mass, restriction of dietary protein, ingestion of creatine, extra-renal metabolism of creatinine, or treatment with medications that affect renal tubular creatinine secretion. Performed By: #### B MELISSA3 TROPN #### [facility] [address] [place], [place] GFR/1.73 sq M.predicted among blacks MDRD (S/P/Bld) [Vol rate/Area] mL/min/{1.73_m2} Normal >60 [facility] Comment on above: Performed By: #### B MP3, TROPN #### [facility] [address] [place], [place] Potassium [Moles/Vol] 4.0 mmol/L Normal 3.5-5.1 [facility] Comment on above: Performed By: #### B MP3, TROPN #### [facility] [address] [place] [address] Chloride [Moles/Vol] 99 mmol/L Normal 98-107 [facility] Comment on above: Performed By: #### B MELISSA3GARCIA #### [facility] [address] [place], [place] Sodium [Moles/Vol] 136 mmol/L Normal 135-145 [facility] Comment on above: Performed By: #### B MELISSA3, COREYN #### [facility] [address] [place], [place] Anion gap [Moles/Vol] 16 mmol/L High 3 - 13 mmol/L [facility] Calcium [Mass/Vol] 9.1 mg/dL 8.4 - 10. 4 mg/dL [facility] Chloride [Moles/Vol] 99 mmol/L 98 - 10 7 mmol/L [facility] CO2 [Moles/Vol] 21 mmol/L Low 22 - 30 mmol/L [facility] Creatinine [Mass/Vol] 0.76 mg/dL 0.52 - 1.25 mg/dL [facility] EGFR IF NonAfrican Venezuelan >90.0 >60 mL/min [facility] Comment on above: KDIGO guidelines pro vide the following GFR categories: Stage GFR(ml/min/1.73 m2) Terms G1 >=90 Normal or high G2 60-89 Mildly decreased* G3a 45-59 Mildly to moderately decreased G3b 30-44 Moderately to severely decreased G4 15-29 Severely decreased G5 <15 Kidney failure *Relative to young adult level. In the absence of evidence of kidney damage, neither GFR category G1 nor G2 fulfill the criteria for CKD. The CKD-EPI equation is validated in individuals 18 years of age and older. Currently the best equation for estimating glomerular filtration rate (GFR) from serum creatinine in children is the Bedside Finch equation. It is less accurate in patients with extremes of muscle mass, restriction of dietary protein, ingestion of creatine, extra-renal metabolism of creatinine, or treatment with medications that affect renal tubular creatinine secretion. GFR/1.73 sq M.predicted among blacks MDRD (S/P/Bld) [Vol rate/Area] mL/min/{1.73_m2} >60 mL/min [facility] Glucose [Mass/Vol] 151 mg/dL High 70 - 100 mg/dL [facility] Potassium [Moles/Vol] 4.0 mmol/L 3.5 - 5.1 mmol/L [facility] Sodium [Moles/Vol] 136 mmol/L 135 - 145 mmol/L [facility] Urea nitrogen (BldV) [Mass/Vol] 12 mg/dL 7 - 17 mg/dL [facility] Anion gap [Moles/Vol] 18 mmol/L High 3-13 [facility] Comment on above: Performed By: #### H EMDF, ETOH4, BMP3, TROPN, LIPA4 #### [facility] [address] [place] [address] Calcium [Mass/Vol] 9.5 mg/dL Normal 8.4-10.4 [facility] Comment on above: Performed By: #### H EMDF, ETOH4, BMP3, TROPN, LIPA4 #### [facility] [address] [place] [address] CO2 [Moles/Vol] 23 mmol/L Normal 22-30 [facility] Comment on above: Performed By: #### H EMDF, ETOH4, BMP3, TROPN, LIPA4 #### [facility] [address] [place] [address] Glucose [Mass/Vol] 156 mg/dL High 70-100 [facility] Comment on above: Performed By: #### H EMDF, ETOH4, BMP3, TROPN, LIPA4 #### [facility] [address] [place] [address] Urea nitrogen [Mass/Vol] 12 mg/dL Normal 7-17 [facility] Comment on above: Performed By: #### H EMDF, ETOH4, BMP3, TROPN, LIPA4 #### [facility] [address] [place] [address] Creatinine [Mass/Vol] 0.81 mg/dL Normal 0.52-1.25 [facility] Comment on above: Performed By: #### H EMDF, ETOH4, BMP3, TROPN, LIPA4 #### [facility] [address] [place] [address] eGFR OTHER > 90.0 Normal >60 [facility] Comment on above: Result Comment: KDIG O guidelines provide the following GFR categories: Stage GFR(ml/min/1.73 m2) Terms G1 >=90 Normal or high G2 60-89 Mildly decreased* G3a 45-59 Mildly to moderately decreased G3b 30-44 Moderately to severely decreased G4 15-29 Severely decreased G5 <15 Kidney failure *Relative to young adult level. In the absence of evidence of kidney damage, neither GFR category G1 nor G2 fulfill the criteria for CKD. The CKD-EPI equation is validated in individuals 18 years of age and older. Currently the best equation for estimating glomerular filtration rate (GFR) from serum creatinine in children is the Bedside Finch equation. It is less accurate in patients with extremes of muscle mass, restriction of dietary protein, ingestion of creatine, extra-renal metabolism of creatinine, or treatment with medications that affect renal tubular creatinine secretion. Performed By: #### H EMDF, ETOH4, BMP3, TROPN, LIPA4 #### [facility] [address] [facility] [place] [address] GFR/1.73 sq M.predicted among blacks MDRD (S/P/Bld) [Vol rate/Area] mL/min/{1.73_m2} Normal >60 [facility] Comment on above: Performed By: #### H EMDF, ETOH4, BMP3, TROPN, LIPA4 #### [facility] [address] [facility] [place] [address] Chloride [Moles/Vol] 99 mmol/L Normal 98-107 [facility] Comment on above: Performed By: #### H EMDF, ETOH4, BMP3, TROPN, LIPA4 #### [facility] [address] [facility] [place] [address] Potassium [Moles/Vol] 3.4 mmol/L Low 3.5-5.1 [facility] Comment on above: Performed By: #### H EMDF, ETOH4, BMP3, TROPN, LIPA4 #### [facility] [address] [facility] [place] [address] Sodium [Moles/Vol] 140 mmol/L Normal 135-145 [facility] Comment on above: Performed By: #### H EMDF, ETOH4, BMP3, TROPN, LIPA4 #### [facility] [address] [place] [address] Beta Hydroxybutyrateon 09-24 Beta Hydroxybutyrate 0.74 mg/dL Normal 0.20-2.81 [facility] Comment on above: Performed By: #### B [id number] #### [facility] [address] [place] [address] Beta-Hydroxybutyrateon 09-24 Beta-Hydroxybutyrate 0.74 mg/dL 0.20 - 2.81 mg/dL [facility] CARDIAC CATH NURSING LOGon 0 09-24-2021 Ordered by an unspecified provider. [facility] with Auto Differentialon 09-24-2021 Absolute Baso # 0.1 10*3/uL 0.0 - 0.2 10*3/uL [facility] Absolute Neut # 17.0 10*3/uL High 1.8 - 7.0 10*3/uL [facility] Basophils/100 WBC (Bld) 0.8 % 0.0 - 2.0 % [facility] Eosinophils (Bld) [#/Vol] 0.0 10*3/uL 0.0 - 0.5 10*3/uL [facility] Eosinophils/100 WBC (Bld) 0.0 % Low 1.0 - 6.0 % [facility] Granulocytes/100 WBC (Bld) 88.2 % High 40.0 - 80.0 % [facility] Hematocrit (Bld) [Volume fraction] 44.5 % 40.0 - 52.0 % [facility] Hemoglobin (Bld) [Mass/Vol] 14.6 g/dL 13.0 - 18.0 g/dL [facility] Interpretation and review of laboratory results Abnormal [facility] Lymphocytes (Bld) [#/Vol] 1.2 10*3/uL 1.0 - 4.3 10*3/uL [facility] Lymphocytes/100 WBC (Bld) 6.2 % Low 20.0 - 40.0 % [facility] MCH (RBC) [Entitic mass] 26.2 pg 26.0 - 34.0 pg [facility] MCHC (RBC) [Mass/Vol] 32.7 % 32.0 - 36.0 % [facility] MCV (RBC) [Entitic vol] 80.0 fL 80.0 - 98.0 fL [facility] Monocytes (Bld) [#/Vol] 0.9 10*3/uL High 0.0 - 0.8 10*3/uL [facility] Monocytes/100 WBC (Bld) 4.8 % 2.0 - 10.0 % [facility] Platelet distribution width (Bld) [Ratio] 19.7 % High 11.5 - 14.5 % [facility] Platelet mean volume (Bld) [Entitic vol] 7.1 fL Low 7.4 - 12.4 fL [facility] Comment on above: MPV is a calculated measurement using platelet volume ratio. Platelets (Bld) [#/Vol] 546 10*3/uL High 140 - 440 10*3/uL [facility] RBC (Bld) [#/Vol] 5.56 10*6/uL 4.40 - 5.9 0 10*6/uL [facility] WBC (Bld) [#/Vol] 19.3 10*3/uL High 3.6 - 10.7 10*3/uL [facility] Test Performed by [address] LAB [facility] CK with Reflex CK-MBon 09-24 CK [Catalytic activity/Vol] 108 U/L 30 - 170 U/L [facility] CK-MB Indexon 09-24-2021 CK-MB Index 6.8 High [facility] CK.MB [Mass/Vol] 7.3 ng/mL High 0.0 - 2.4 ng/mL [facility] Comment on above: Both the CKMB and th e Relative Index must be abnormal for clinical significance. Interpretation and review of laboratory results Abnormal [facility] Test Performed by [id number] [place] [address] LAB [facility] CKMB Fractionationon 022 CK.MB [Mass/Vol] 7.3 ng/mL High 0.0-2.4 [facility] Comment on above: Result Comment: Both the CKMB and the Relative Index must be abnormal for clinical significance. Performed By: #### B MP3, TROPN #### [address] [address] Relative Index 6.8 High 0.0-3.0 [facility] Comment on above: Performed By: #### B MP3, TROPN #### [facility] [address] [place] [address] CKMB Screenon 09-24-2021 CK [Catalytic activity/Vol] 108 U/L Normal 30-170 [facility] Comment on above: Performed By: #### B MP3, TROPN #### [facility] [address] [place] [address] COVID and Resp PCR Panelon 0 09-24-2021 SARS-CoV-2 (COVID-19) RNA CONNOR+probe Ql (Unsp spec) COVID and Resp PCR Panel --> Status: F NEGATIVE: No targets were detected by the [employer] Upper Respiratory Pathogens PCR Panel. _ Expected Result: Not Detected The [employer] Upper Respiratory Pathogens PCR Panel can detect the following targets: SARS-CoV-2, Adenovirus, Coronavirus 229E, Coronavirus HKU1, Coronavirus NL63, Coronavirus OC43, Human Metapneumovirus, Human Rhinovirus/Enteroviru s, Influenza A, Influenza B, Parainfluenza Virus 1, Parainfluenza Virus 2, Parainfluenza Virus 3, Parainfluenza Virus 4, Respiratory Syncytial Virus, Bordetella pertussis, Bordetella parapertussis, Chlamydia pneumoniae, Mycoplasma pneumoniae. Method: Real-time PCR. Respiratory Pathogens PCR Panel. _ Expected Result: Not Detected The [employer] Upper Respiratory Pathogens PCR Panel can detect the following targets: SARS-CoV-2, Adenovirus, Coronavirus 229E, Coronavirus HKU1, Coronavirus NL63, Coronavirus OC43, Human Metapneumovirus, Human Rhinovirus/Enteroviru s, Influenza A, Influenza B, Parainfluenza Virus 1, Parainfluenza Virus 2, Parainfluenza Virus 3, Parainfluenza Virus 4, Respiratory Syncytial Virus, Bordetella pertussis, Bordetella parapertussis, Chlamydia pneumoniae, Mycoplasma pneumoniae. Method: Real-time PCR. Normal [facility] Comment on above: Performed By: #### C UA2, DRGA4 #### [facility] [address] [place] [address] CR Chest Portableon 09-25-19 22 CR Chest Portable Patient Name: EL SMITH Diagnostic Radiology ACCESSION EXAM DATE/TIME PROCEDURE ORDERING PROVIDER [id number] 09/23/2021 23:19 EDT CR Chest Portable MD CHAR[place], MIQUEL CPT code 15652 Reason For Exam (CR Chest Portable) chest pain Report CHEST SINGLE VIEW CLINICAL INFORMATION: Chest pain A frontal view of the chest was obtained. No acute pulmonary disease is noted. The cardiovascular silhouette is within normal limits. IMPRESSION: No acute pulmonary disease. Report Dictated on Final Dictating Physician: MD MARTIN WILLIAM Signed Date and Time: 09/23/2021 11:40 pm Signed by: MD MARTIN WILLIAM Transcribed Date and Time: 09/23/2021 11:41 Normal [facility] Complete Urinalysison 2021 Appearance (U) Clear Normal Clear [facility] Comment on above: Result Comment: . Performed By: #### C UA2, DRGA4 #### [place] [address] [place], [place] Bacteria LM.HPF (Urine sed) [#/Area] Negative Normal Negative [facility] Comment on above: Result Comment: . Performed By: #### C UA2, DRGA4 #### [place] [place], [place] Bilirubin,Urine Negative Normal Negative [facility] Comment on above: Result Comment: . Performed By: #### C UA2, DRGA4 #### [place] [place], [place] Cast, Hyaline Negative Normal Negative [facility] Comment on above: Result Comment: . Performed By: #### C UA2, DRGA4 #### [place] [place], [place] Color (U) Yellow Normal Lt. Yellow [facility] Comment on above: Result Comment: . Performed By: #### C UA2, DRGA4 #### [place] [address] [place] [address] Glucose Ql (U) Normal Normal Normal (<70) [facility] Comment on above: Result Comment: . Performed By: #### C UA2, DRGA4 #### [place] [place], [place] Ketone,Urine Trace Abnormal Negative [facility] Comment on above: Result Comment: . Performed By: #### C UA2, DRGA4 #### [place] [address] [place], [place] Leukocytes,Urine Negative Normal Negative [facility] Comment on above: Result Comment: . Performed By: #### C UA2, DRGA4 #### [place] [place], [place] Mucous Threads Few Normal Negative [facility] Comment on above: Result Comment: . Performed By: #### C UA2, DRGA4 #### [place] [place], [place] Nitrites,Urine Negative Normal Negative [facility] Comment on above: Result Comment: . Performed By: #### C UA2, DRGA4 #### [place] [place], [place] Occult Blood,Urine 0.03 mg/dL Abnormal Negative [facility] Comment on above: Result Comment: . Performed By: #### C UA2, DRGA4 #### [place] [place], [place] pH,Urine 6.5 Normal 5.0-8.0 [facility] Comment on above: Result Comment: . Performed By: #### C UA2, DRGA4 #### [place] [place], [place] Protein (U) [Mass/Vol] 100 mg/dL Abnormal Negative [facility] Comment on above: Result Comment: . Performed By: #### C UA2, DRGA4 #### [place] [place], [place] RBC, Urine 0 - 2 Normal 0-2 [facility] Comment on above: Result Comment: . Performed By: #### C UA2, DRGA4 #### [place] [address] [place], [place] Specific [place],Urine > 1.030 Abnormal 1.005 - 1.030 [facility] Comment on above: Result Comment: . Performed By: #### C UA2, DRGA4 #### [facility] [address] [place], [place] Squamous Epithelial 0 - 2 Normal 3-5 [facility] Comment on above: Result Comment: . Performed By: #### C UA2, DRGA4 #### [facility] [address] [place], [place] Urobilinogen,Urine Normal Normal Normal (0-1) [facility] Comment on above: Result Comment: . Performed By: #### C UA2, DRGA4 #### [place] [place], [place] WBC LM.HPF (Urine sed) [#/Area] Negative Normal 0-5 [facility] Comment on above: Result Comment: . Performed By: #### C UA2, DRGA4 #### [place] [place], [place] Drugs of Abuseon 09-24-2021 Amphetamines, Ur Negative Normal [facility] Comment on above: Performed By: #### C UA2, DRGA4 #### [place] [place], [place] Oxycodone/Oxymorphine,U r Positive Normal [facility] Comment on above: Performed By: #### C UA2, DRGA4 #### [place] [place], [place] Cocaine, Ur Negative Normal [facility] Comment on above: Performed By: #### C UA2, DRGA4 #### [address] [place], [place] Phencyclidine (PCP), Ur Negative Normal [facility] Comment on above: Result Comment: The expected value for all of the drugs listed above is Negative. The following drugs or drug groups have been screened for by Immunoassay at the following thresholds: Amphetamine class (1000 ng/mL), Barbiturates (200 ng/mL), Benzodiazepines (200 ng/mL), Cocaine (300 ng/mL), Methadone (300 ng/mL), Opiates (300 ng/mL), Oxycodone (100 ng/mL), and PCP (25 ng/mL). NOTE: These results are for medical treatment only. Analysis performed using non-forensic procedures. POSITIVE results are NOT confirmed by a more specific alternative method unless requested. If confirmation is needed, request confirmation under separate order. Performed By: #### C UA2, DRGA4 #### [facility] [address] [place], [place] Opiates, Ur Positive Normal [facility] Comment on above: Performed By: #### C UA2, DRGA4 #### [facility] [address] [place], [place] Methadone, Ur Negative Normal [facility] Comment on above: Performed By: #### C UA2, DRGA4 #### [place] [place], [place] Benzodiazepines, Ur Positive Normal [facility] Comment on above: Performed By: #### C UA2, DRGA4 #### [place] [place], [place] Barbiturates, Ur Negative Normal [facility] Comment on above: Performed By: #### C UA2, DRGA4 #### [place] [place], [place] ECHO Complete 2D W Doppler W Coloron 09-24-2021 TRANSTHORACIC ECHOCARDIOGRAM PATIENT: El Smith STUDY DATE: 09/24/2021 M : 1980 AGE: 40 HT/WT: 177.8 cm (70 91.6 kg (201.6 in) lb) GENDER: M BP: 120 / 87 LOCATION: [facility] PATIENT Inpatient main STATUS: *ORDERING PHYSICIAN: * Yevgeniy Green *READING PHYSICIAN: * Adam Marie MD *BLOCK SORTER: * Tricia Ny -------- INDICATIONS: Stemi, lv function. -------- CONCLUSIONS SUMMARY: 1. Left ventricle: There is mild concentric hypertrophy. Systolic function is at the lower limits of normal by visual assessment. The estimated ejection fraction is 50%. 2. Regional wall motion abnormality: Severe hypokinesis of the entire inferior myocardium. 3. Right ventricle: The cavity size is normal. Systolic function is normal. 4. No significant valve disease. -------- STUDY DATA: Complete transthoracic echocardiogram. Procedure: Image quality was fair. The study was technically limited due to poor acoustic window availability and poor patient compliance. Pt was mobile throughout testing and refused to follow instructions M-mode, complete 2D, complete spectral Doppler, and color flow Doppler images were acquired and archived for permanent storage and are available for subsequent review. Study status: Routine. Patient status: Inpatient. -------- FINDINGS LEFT VENTRICLE: The cavity size is normal. There is mild concentric hypertrophy. Systolic function is at the lower limits of normal by visual assessment. The estimated ejection fraction is 50%. Cardiac wall motion is otherwise normal. Regional wall motion abnormalities: Severe hypokinesis of the entire inferior myocardium. RIGHT VENTRICLE: The cavity size is normal. Systolic function is normal. Right ventricular systolic pressure is within the normal range. VENTRICULAR SEPTUM: There is no evidence of a ventricular septal defect. LEFT ATRIUM: The atrium is normal in size. RIGHT ATRIUM: The atrium is normal in size. ATRIAL SEPTUM: Color Doppler shows no shunt. MITRAL VALVE: Structurally normal valve. Normal (thickness) leaflets. Doppler: There is no evidence for stenosis. There is no significant regurgitation. AORTIC VALVE: Structurally normal valve. Trileaflet; normal thickness leaflets. Doppler: There is no stenosis. There is no significant regurgitation. The peak systolic gradient is 6 mm Hg. The peak systolic velocity is 1.2 m/sec. TRICUSPID VALVE: Structurally normal valve. Normal thickness leaflets. Doppler: There is no significant regurgitation. PULMONIC VALVE: Structurally normal valve. Doppler: There is trivial, less than 1+ regurgitation. AORTA: The aorta is normal. PULMONARY ARTERY: Main pulmonary artery: Normal. PERICARDIUM: There is no pericardial effusion. SYSTEMIC VEINS: Inferior vena cava: The vessel is normal. The IVC collapses by greater than 50% with inspiration. -------- Measurements Value Reference Aortic root ID 3.7 cm <3.8 Aortic root ID, STJ, ED 3.4 cm 2.3 - 3.5 Aortic root ID/bsa, STJ, ED 1.6 cm/m^2 1.1 - 1.9 Left ventricle Value Reference LV ID, ED (L) 4.1 cm 4.2 - 5.8 LV ID, ES 3.0 cm 2.5 - 4.0 LV ID/bsa, ED (L) 1.9 cm/m^2 2.2 - 3.0 LV ID/bsa, ES 1.4 cm/m^2 1.3 - 2.1 LV PW thickness, ED (H) 1.4 cm 0.6 - 1.0 LV PW/LV ID ratio, ED 0.34 LV wall mass 198 g 96 - 200 LV wall mass/bsa 94 g/m^2 50 - 102 Stroke volume/bsa, 1-p A2C 12.9 ml/m^2 LV end-diastolic volume, 1-p A4C (L) 67 ml 69 - 185 LV end-systolic volume, 1-p A4C 35 ml 22 - 78 LV end-diastolic volume, 2-p 63 ml 62 - 150 LV end-systolic volume, 2-p 35 ml 21 - 61 LV ejection fraction, 2-p (L) 45 % 52 - 72 LV E/e', lateral 5.8 LV E/e', medial 6.9 LV E/e', average 6.3 Ventricular septum Value Reference IVS [facility] (more content not included)... [facility] Adam Marie MD - 09/24/2021 TRANSTHORACIC ECHOCARDIOGRAM PATIENT: El Smith STUDY DATE: 09/24/2021 M : 1980 AGE: 40 HT/WT: 177.8 cm (70 91.6 kg (201.6 in) lb) GENDER: M BP: 120 / 87 LOCATION: [facility] PATIENT Inpatient main STATUS: *ORDERING PHYSICIAN: * Yevgeniy Green *READING PHYSICIAN: * Adam Marie MD *BLOCK SORTER: * Tricia Ny -------- INDICATIONS: Stemi, lv function. -------- CONCLUSIONS SUMMARY: 1. Left ventricle: There is mild concentric hypertrophy. Systolic function is at the lower limits of normal by visual assessment. The estimated ejection fraction is 50%. 2. Regional wall motion abnormality: Severe hypokinesis of the entire inferior myocardium. 3. Right ventricle: The cavity size is normal. Systolic function is normal. 4. No significant valve disease. -------- STUDY DATA: Complete transthoracic echocardiogram. Procedure: Image quality was fair. The study was technically limited due to poor acoustic window availability and poor patient compliance. Pt was mobile throughout testing and refused to follow instructions M-mode, complete 2D, complete spectral Doppler, and color flow Doppler images were acquired and archived for permanent storage and are available for subsequent review. Study status: Routine. Patient status: Inpatient. -------- FINDINGS LEFT VENTRICLE: The cavity size is normal. There is mild concentric hypertrophy. Systolic function is at the lower limits of normal by visual assessment. The estimated ejection fraction is 50%. Cardiac wall motion is otherwise normal. Regional wall motion abnormalities: Severe hypokinesis of the entire inferior myocardium. RIGHT VENTRICLE: The cavity size is normal. Systolic function is normal. Right ventricular systolic pressure is within the normal range. VENTRICULAR SEPTUM: There is no evidence of a ventricular septal defect. LEFT ATRIUM: The atrium is normal in size. RIGHT ATRIUM: The atrium is normal in size. ATRIAL SEPTUM: Color Doppler shows no shunt. MITRAL VALVE: Structurally normal valve. Normal (thickness) leaflets. Doppler: There is no evidence for stenosis. There is no significant regurgitation. AORTIC VALVE: Structurally normal valve. Trileaflet; normal thickness leaflets. Doppler: There is no stenosis. There is no significant regurgitation. The peak systolic gradient is 6 mm Hg. The peak systolic velocity is 1.2 m/sec. TRICUSPID VALVE: Structurally normal valve. Normal thickness leaflets. Doppler: There is no significant regurgitation. PULMONIC VALVE: Structurally normal valve. Doppler: There is trivial, less than 1+ regurgitation. AORTA: The aorta is normal. PULMONARY ARTERY: Main pulmonary artery: Normal. PERICARDIUM: There is no pericardial effusion. SYSTEMIC VEINS: Inferior vena cava: The vessel is normal. The IVC collapses by greater than 50% with inspiration. -------- Measurements Value Reference Aortic root ID 3.7 cm <3.8 Aortic root ID, STJ, ED 3.4 cm 2.3 - 3.5 Aortic root ID/bsa, STJ, ED 1.6 cm/m^2 1.1 - 1.9 Left ventricle Value Reference LV ID, ED (L) 4.1 cm 4.2 - 5.8 LV ID, ES 3.0 cm 2.5 - 4.0 LV ID/bsa, ED (L) 1.9 cm/m^2 2.2 - 3.0 LV ID/bsa, ES 1.4 cm/m^2 1.3 - 2.1 LV PW thickness, ED (H) 1.4 cm 0.6 - 1.0 LV PW/LV ID ratio, ED 0.34 LV wall mass 198 g 96 - 200 LV wall mass/bsa 94 g/m^2 50 - 102 Stroke volume/bsa, 1-p A2C 12.9 ml/m^2 LV end-diastolic volume, 1-p A4C (L) 67 ml 69 - 185 LV end-systolic volume, 1-p A4C 35 ml 22 - 78 LV end-diastolic volume, 2-p 63 ml 62 - 150 LV end-systolic volume, 2-p 35 ml 21 - 61 LV ejection fraction, 2-p (L) 45 % 52 - 72 LV E/e', lateral 5.8 LV E/e', medial 6.9 LV E/e', average 6.3 Ventricular septum Value Reference IVS thickness, ED (H) 1.3 cm 0.6 - 1.0 LVOT Value Reference LVOT ID, A-P 2.2 cm LVOT mean velocity, S 0.8 m/sec LVOT peak gradient, S 5 mm Hg Stroke volume (SV), LVOT DP 79 ml Stroke index (SV/bsa), LVOT DP 37 ml/m^2 Aortic valve Value Reference Aortic valve peak velocity, S 1.2 m/sec Aortic peak gradient, S 6 mm Hg Left atrium Value Reference LA volume/bsa, ES, 2-p 16 ml/m^2 16 - 34 Mitral valve Value Reference Mitral E-wave peak velocity 0.7 m/sec Mitral A-wave peak velocity 0.4 m/sec Mitral deceleration time 125 ms Mitr (more content not included)... [employer] Work Phone: ECHO Complete 2D W Doppler W ColorOrdered By: Adam Marie on 09-24-2021 [employer] Work Phone: EKG 12 Leadon 09-24-2021 [employer] Test Date: 2021-09-24 Pat Name: EL SMITH Department: [facility] Room: [facility] Gender: M 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1980 Requested By: LOC MCKINNEY Order Number: [id number] Reading MD: Jamison Talamantes Measurements Intervals [place] Rate: 109 P: 57 MI: 129 QRS: 62 QRSD: 101 T: 96 QT: 347 QTc: 468 Interpretive Statements Sinus tachycardia Inferior infarct, acute Electronically Signed On 09-24-2021 13:00:03 EDT by Jamison Talamantes [facility] Jamison Talamantes MD - 09/24/2021 [employer] Test Date: 2021-09-24 Pat Name: EL SMITH Department: [facility] Room: 1[facility] Gender: M 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1980 Requested By: LOC MCKINNEY Order Number: [id number] Reading : Jamison Talamantes Measurements Intervals [place] Rate: 109 P: 57 MI: 129 QRS: 62 QRSD: 101 T: 96 QT: 347 QTc: 468 Interpretive Statements Sinus tachycardia Inferior infarct, acute Electronically Signed On 09-24-2021 13:00:03 EDT by Jamison Talamantes [facility] Work Phone: EKG 12 LeadOrdered By: Jamison Talamantes on 09-24-2021 [facility] Work Phone: EKG 12 leadon 09-24-2021 [facility] Test Date: 2021-09-24 Pat Name: EL SMITH [facility] Gender: M Dough Panner: DIEGO : 1980 Requested By: LOC MCKINNEY Order Number: [id number] Reading MD: Jamison Talamantes Measurements Intervals [place] Rate: 106 P: 43 MI: 142 QRS: 47 QRSD: 105 T: 117 QT: 365 QTc: 486 Interpretive Statements Sinus tachycardia Borderline T wave abnormalities Borderline prolonged QT interval INFERIOR INFARCT, AGE INDETERMINATE Electronically Signed On 09-24-2021 12:14:16 EDT by Jamison Talamantes [facility] Jamison Garcia MD - 09/24/2021 [facility] Test Date: 2021-09-24 Pat Name: EL SMITH Department: [facility] Room: 1HLU Gender: M Dough Panner: DIEGO : 1980 Requested By: LOC MCKINNEY Order Number: [id number] Reading : Jamison Talamantes Measurements Intervals [place] Rate: 106 P: 43 MI: 142 QRS: 47 QRSD: 105 T: 117 QT: 365 QTc: 486 Interpretive Statements Sinus tachycardia Borderline T wave abnormalities Borderline prolonged QT interval INFERIOR INFARCT, AGE INDETERMINATE Electronically Signed On 09-24-2021 12:14:16 EDT by Jamison Talamantes [facility] Work Phone: [facility] Work Phone: Echo Complete w/wo Contrasto n 09-24-2021 Echo Complete w/wo Contrast Patient Name: EL SMITH Ultrasound ACCESSION EXAM DATE/TIME PROCEDURE ORDERING PROVIDER [id number] 09/24/2021 10:15 EDT Echo Complete w/wo [id number] -YEVGENIY GREEN Reason For Exam (Echo Complete w/wo Contrast) Assess LV fuction post STEMI Report TRANSTHORACIC ECHOCARDIOGRAM PATIENT: El Smith STUDY DATE: 09/24/2021 Sirisha : 1980 AGE: 40 HT/WT: 177.8 cm (70 91.6 kg (201.6 in) lb) GENDER: M BP: 120 / 87 LOCATION: [facility] PATIENT Inpatient main STATUS: *ORDERING PHYSICIAN: * Yevgeniy Green *READING PHYSICIAN: * Adam Marie MD *BLOCK SORTER: * Tricia Ny -------- INDICATIONS: Stemi, lv function. -------- CONCLUSIONS SUMMARY: 1. Left ventricle: There is mild concentric hypertrophy. Systolic function is at the lower limits of normal by visual assessment. The estimated ejection fraction is 50%. 2. Regional wall motion abnormality: Severe hypokinesis of the entire inferior myocardium. 3. Right ventricle: The cavity size is normal. Systolic function is normal. 4. No significant valve disease. -------- STUDY DATA: Complete transthoracic echocardiogram. Procedure: Image quality was fair. The study was technically limited due to poor acoustic window availability and poor patient compliance. Pt was mobile throughout testing and refused to follow instructions M-mode, complete 2D, complete spectral Doppler, and color flow Doppler images were acquired and archived for permanent storage and are available for subsequent review. Study status: Routine. Patient status: Inpatient. -------- FINDINGS LEFT VENTRICLE: The cavity size is normal. There is mild concentric hypertrophy. Systolic function is at the lower limits of normal by Ultrasound Report visual assessment. The estimated ejection fraction is 50%. Cardiac wall motion is otherwise normal. Regional wall motion abnormalities: Severe hypokinesis of the entire inferior myocardium. RIGHT VENTRICLE: The cavity size is normal. Systolic function is normal. Right ventricular systolic pressure is within the normal range. VENTRICULAR SEPTUM: There is no evidence of a ventricular septal defect. LEFT ATRIUM: The atrium is normal in size. RIGHT ATRIUM: The atrium is normal in size. ATRIAL SEPTUM: Color Doppler shows no shunt. MITRAL VALVE: Structurally normal valve. Normal (thickness) leaflets. Doppler: There is no evidence for stenosis. There is no significant regurgitation. AORTIC VALVE: Structurally normal valve. Trileaflet; normal thickness leaflets. Doppler: There is no stenosis. There is no significant regurgitation. The peak systolic gradient is 6 mm Hg. The peak systolic velocity is 1.2 m/sec. TRICUSPID VALVE: Structurally normal valve. Normal thickness leaflets. Doppler: There is no significant regurgitation. PULMONIC VALVE: Structurally normal valve. Doppler: There is trivial, less than 1+ regurgitation. AORTA: The aorta is normal. PULMONARY ARTERY: Main pulmonary artery: Normal. PERICARDIUM: There is no pericardial effusion. SYSTEMIC VEINS: Inferior vena cava: The vessel is normal. The IVC collapses by greater than 50% with inspiration. -------- Measurements Value Reference Aortic root ID 3.7 cm <3.8 Aortic root ID, STJ, ED 3.4 cm 2.3 - 3.5 Aortic root ID/bsa, STJ, ED 1.6 cm/m^2 1.1 - 1.9 Left ventricle Value Reference LV ID, ED (L) 4.1 cm 4.2 - 5.8 LV ID, ES 3.0 cm 2.5 - 4.0 LV ID/bsa, ED (L) 1.9 cm/m^2 2.2 - 3.0 LV ID/bsa, ES 1.4 cm/m^2 1.3 - 2.1 LV PW thickness, ED (H) 1.4 cm 0.6 - 1.0 LV PW/LV ID ratio, ED 0.34 LV wall mass 198 g 96 - 200 LV wall mass/bsa 94 g/m^2 50 - 102 Stroke volume/bsa, 1-p A2C 12.9 ml/m^2 LV end-diastolic volume, 1-p A4C (L) 67 ml 69 - 185 LV end-systolic volume, 1-p A4C 35 ml 22 - 78 LV end-diastolic volume, 2-p 63 ml 62 - 150 LV end-systolic volume, 2-p 35 ml 21 - 61 LV ejection fraction, 2-p (L) 45 % 52 - 72 LV E/e', lateral 5.8 LV E/e', medial 6.9 LV E/e', average 6.3 Ventricular septum Value Reference IVS thickness, ED (H) 1.3 cm 0.6 - 1.0 LVOT Value Reference LVOT ID, A-P 2.2 cm LVOT mean velocity, S 0.8 m/sec LVOT peak gradient, S 5 mm Hg Ultrasound Report Stroke volume (SV), LVOT DP 79 ml Stroke index (SV/bsa), LVOT DP 37 ml/m^2 Aortic valve Value Reference Aortic valve peak velocity, S 1.2 m/sec Aortic peak gradient, S 6 mm Hg (more content not included)... Normal [facility] Ethanol Serum/Plasmaon 09-24 Ethanol-Serum/Plasma < 0.010 Normal 0.000-0.010 [facility] Comment on above: Result Comment: NOTE : This result is for medical treatment only. Analysis performed using non-forensic procedures. Performed By: #### H EMDF, ETOH4, BMP3, TROPN, LIPA4 #### [facility] [address] [place] [address] Ferritinon 09-24-2021 Ferritin [Mass/Vol] 13 ng/mL Low 18-464 [facility] Comment on above: Performed By: #### B MP3, TROPN #### [address] [phone] Ferritin [Mass/Vol] 13 ng/mL Low 18 - 464 ng/mL [facility] Interpretation and review of laboratory results Abnormal [facility] Test Performed by [facility], [address] [place] [id number] [place] [address] LAB [facility] Hemoglobin A1Con 09-24-2021 Glucose [Mass/Vol] 105 mg/dL Normal [facility] Comment on above: Performed By: #### B MP3, TROPN #### [address] [phone] HbA1c (Bld) [Mass fraction] 5.3 % Normal [facility] Comment on above: Result Comment: Norm al less than 5.7% Prediabetes 5.7% to 6.4% Diabetes 6.5% or higher --HgbA1C levels may not be accurate in patients who have renal disease, received recent blood transfusions, are anemic, or who have dyshemoglobinemia. Performed By: #### Danna TORRES3 TROPN #### [address] HbA1c (Bld) [Mass fraction] 5.3 % [facility] Comment on above: Normal less than 5.7 % Prediabetes 5.7% to 6.4% Diabetes 6.5% or higher --HgbA1C levels may not be accurate in patients who have renal disease, received recent blood transfusions, are anemic, or who have dyshemoglobinemia. Magnesium [Mass/Vol] 105 mg/dL [facility] Test Performed by [facility], [address] [place] [id number] [facility] Hemogram w/ Autodiffon 09-24 Abs Baso Cnt 0.1 10*3/uL Normal 0.0-0.2 [facility] Comment on above: Performed By: #### Danna TORRES3 TROPN #### [address] Abs Neutrophile Cnt 17.0 10*3/uL High 1.8-7.0 [facility] Comment on above: Performed By: #### Danna TORRES3, TROPN #### [address] Basophils/100 WBC (Bld) 0.8 % Normal 0.0-2.0 [facility] Comment on above: Performed By: #### Danna MP3, TROPN #### [address] Eosinophils (Bld) [#/Vol] 0.0 10*3/uL Normal 0.0-0.5 [facility] Comment on above: Performed By: #### Danna TORRES3, TROPN #### [address] Eosinophils/100 WBC (Bld) 0.0 % Low 1.0-6.0 [facility] Comment on above: Performed By: #### Danna TORRES3, TROPN #### [address] Erythrocyte distribution width (RBC) [Ratio] 19.7 % High 11.5-14.5 [facility] Comment on above: Performed By: #### B MP3 TROPN #### [address] [place], [place] Granulocytes/100 WBC (Bld) 88.2 % High 40.0-80.0 [facility] Comment on above: Performed By: #### B MP3, TROPN #### [address] [place], [place] Hematocrit (Bld) [Volume fraction] 44.5 % Normal 40.0-52.0 [facility] Comment on above: Performed By: #### B MP3, COREYN #### [address] [place], [place] Hemoglobin (Bld) [Mass/Vol] 14.6 g/dL Normal 13.0-18.0 [facility] Comment on above: Performed By: #### B MP3, TROPN #### [address] [place], [place] Lymphocytes (Bld) [#/Vol] 1.2 10*3/uL Normal 1.0-4.3 [facility] Comment on above: Performed By: #### Danna MP3, COREYN #### [address] [place], [place] Lymphocytes/100 WBC (Bld) 6.2 % Low 20.0-40.0 [facility] Comment on above: Performed By: #### B MP3, TROPN #### [address] [place], [place] MCH (RBC) [Entitic mass] 26.2 pg Normal 26.0-34.0 [facility] Comment on above: Performed By: #### B MP3, TROPN #### [address] [place], [place] MCHC 32.7 % Normal 32.0-36.0 [facility] Comment on above: Performed By: #### B MP3, TROPN #### [address] [place], [place] MCV (RBC) [Entitic vol] 80.0 fL Normal 80.0-98.0 [facility] Comment on above: Performed By: #### B MP3, TROPN #### [facility] [address] [place], [place] Monocytes (Bld) [#/Vol] 0.9 10*3/uL High 0.0-0.8 [facility] Comment on above: Performed By: #### B MP3, TROPN #### [facility] [address] [place], [place] Monocytes/100 WBC (Bld) 4.8 % Normal 2.0-10.0 [facility] Comment on above: Performed By: #### B MP3, TROPN #### [facility] [address] [place], [place] Platelet mean volume (Bld) [Entitic vol] 7.1 fL Low 7.4-12.4 [facility] Comment on above: Result Comment: MPV is a calculated measurement using platelet volume ratio. Performed By: #### B MP3, TROPN #### [facility] [address] [place], [place] Platelets (Bld) [#/Vol] 546 10*3/uL High 140-440 [facility] Comment on above: Performed By: #### B MP3, TROPN #### [facility] [address] [place], [place] RBC (Bld) [#/Vol] 5.56 10*6/uL Normal 4.40-5.90 [facility] Comment on above: Performed By: #### B MP3, TROPN #### [facility] [address] [place], [place] WBC (Bld) [#/Vol] 19.3 10*3/uL High 3.6-10.7 [facility] Comment on above: Performed By: #### B MP3, TROPN #### [facility] [address] [place], [place] Abs Baso Cnt 0.2 10*3/uL Normal 0.0-0.2 [facility] Comment on above: Performed By: #### H EMDF, ETOH4, BMP3, TROPN, LIPA4 #### [facility] [address] [place] [address] Abs Neutrophile Cnt 18.1 10*3/uL High 1.8-7.0 [facility] Comment on above: Performed By: #### H EMDF, ETOH4, BMP3, TROPN, LIPA4 #### [facility] [address] [place] [address] Basophils/100 WBC (Bld) 0.8 % Normal 0.0-2.0 [facility] Comment on above: Performed By: #### H EMDF, ETOH4, BMP3, TROPN, LIPA4 #### [facility] [address] [place] [address] Eosinophils (Bld) [#/Vol] 0.0 10*3/uL Normal 0.0-0.5 [facility] Comment on above: Performed By: #### H EMDF, ETOH4, BMP3, TROPN, LIPA4 #### [facility] [address] [place] [address] Eosinophils/100 WBC (Bld) 0.0 % Low 1.0-6.0 [facility] Comment on above: Performed By: #### H EMDF, ETOH4, BMP3, TROPN, LIPA4 #### [facility] [address] [place] [address] Erythrocyte distribution width (RBC) [Ratio] 19.1 % High 11.5-14.5 [facility] Comment on above: Performed By: #### H EMDF, ETOH4, BMP3, TROPN, LIPA4 #### [facility] [address] [place] [address] Granulocytes/100 WBC (Bld) 85.7 % High 40.0-80.0 [facility] Comment on above: Performed By: #### H EMDF, ETOH4, BMP3, TROPN, LIPA4 #### [facility] [address] [place] [address] Hematocrit (Bld) [Volume fraction] 47.1 % Normal 40.0-52.0 [facility] Comment on above: Performed By: #### H EMDF, ETOH4, BMP3, TROPN, LIPA4 #### [facility] [address] [place] [address] Hemoglobin (Bld) [Mass/Vol] 16.0 g/dL Normal 13.0-18.0 [facility] Comment on above: Performed By: #### H EMDF, ETOH4, BMP3, TROPN, LIPA4 #### [facility] [address] [place] [address] Lymphocytes (Bld) [#/Vol] 1.5 10*3/uL Normal 1.0-4.3 [facility] Comment on above: Performed By: #### H EMDF, ETOH4, BMP3, TROPN, LIPA4 #### [address] [place] [address] Lymphocytes/100 WBC (Bld) 7.2 % Low 20.0-40.0 [facility] Comment on above: Performed By: #### H EMDF, ETOH4, BMP3, TROPN, LIPA4 #### [address] [place] [address] MCH (RBC) [Entitic mass] 26.5 pg Normal 26.0-34.0 [facility] Comment on above: Performed By: #### H EMDF, ETOH4, BMP3, TROPN, LIPA4 #### [address] [place] [address] MCHC 34.0 % Normal 32.0-36.0 [facility] Comment on above: Performed By: #### H EMDF, ETOH4, BMP3, TROPN, LIPA4 #### [address] [place] [address] MCV (RBC) [Entitic vol] 78.1 fL Low 80.0-98.0 [facility] Comment on above: Performed By: #### H EMDF, ETOH4, BMP3, TROPN, LIPA4 #### [address] [place] [address] Monocytes (Bld) [#/Vol] 1.2 10*3/uL High 0.0-0.8 [facility] Comment on above: Performed By: #### H EMDF, ETOH4, BMP3, TROPN, LIPA4 #### [facility] [address] [place] [address] Monocytes/100 WBC (Bld) 5.8 % Normal 2.0-10.0 [facility] Comment on above: Performed By: #### H EMDF, ETOH4, BMP3, TROPN, LIPA4 #### [facility] [address] [place] [address] Platelet mean volume (Bld) [Entitic vol] 8.5 fL Normal 7.4-12.4 [facility] Comment on above: Result Comment: MPV is a calculated measurement using platelet volume ratio. Performed By: #### H EMDF, ETOH4, BMP3, TROPN, LIPA4 #### [facility] [address] [place] [address] Platelets (Bld) [#/Vol] 639 10*3/uL High 140-440 [facility] Comment on above: Performed By: #### H EMDF, ETOH4, BMP3, TROPN, LIPA4 #### [facility] [address] [place] [address] RBC (Bld) [#/Vol] 6.03 10*6/uL High 4.40-5.90 [facility] Comment on above: Performed By: #### H EMDF, ETOH4, BMP3, TROPN, LIPA4 #### [facility] [address] [place] [address] WBC (Bld) [#/Vol] 21.1 10*3/uL High 3.6-10.7 [facility] Comment on above: Performed By: #### H EMDF, ETOH4, BMP3, TROPN, LIPA4 #### [facility] [address] [place] [address] Hepatic Functionon 2 ALT [Catalytic activity/Vol] 39 U/L Normal 0-49 [facility] Comment on above: Result Comment: The ALT test is performed by an updated assay method. Please note that the reference intervals have been changed and are now sex specific. Performed By: #### B MP3, TROPN #### [facility] [address] [place] [address] ALP [Catalytic activity/Vol] 131 U/L High 38-126 [facility] Comment on above: Performed By: #### B MP3, TROPN #### [facility] [address] [place], [place] AST [Catalytic activity/Vol] 59 U/L High 15-46 [facility] Comment on above: Performed By: #### B MP3, TROPN #### [facility] [address] [place], [place] Bilirubin [Mass/Vol] 1.1 mg/dL Normal 0.2-1.3 [facility] Comment on above: Performed By: #### B MP3, TROPN #### [facility] [address] [place], [place] Protein [Mass/Vol] 7.0 g/dL Normal 6.3-8.2 [facility] Comment on above: Performed By: #### B MP3, TROPN #### [facility] [address] [place], [place] Bilirubin.indirect [Mass/Vol] 0.0 mg/dL Normal 0.0-0.3 [facility] Comment on above: Performed By: #### B MP3, TROPN #### [facility] [address] [place], [place] Albumin [Mass/Vol] 4.3 g/dL Normal 3.5-5.0 [facility] Comment on above: Performed By: #### B MP3, TROPN #### [facility] [address] [place], [place] Hepatic Function Panelon Albumin [Mass/Vol] 4.3 g/dL 3.5 - 5.0 g/dL [facility] ALP (Bld) [Catalytic activity/Vol] 131 U/L High 38 - 126 U/L [facility] ALT [Catalytic activity/Vol] 39 U/L 0 - 49 U/L [facility] Comment on above: The ALT test is perf ormed by an updated assay method. Please note that the reference intervals have been changed and are now sex specific. AST [Catalytic activity/Vol] 59 U/L High 15 - 46 U/L [facility] Bilirubin [Mass/Vol] 1.1 mg/dL 0.2 - 1 .3 mg/dL [facility] Bilirubin.indirect [Mass/Vol] 0.0 mg/dL 0.0 - 0.3 mg/dL [facility] Free PSA/Total PSA [Mass fraction] 7.0 g/dL 6.3 - 8.2 g/dL [facility] Interpretation and review of laboratory results Abnormal [facility] Iron AND TIBCon 09-24-2021 Saturation 19 % Normal 15-50 [facility] Comment on above: Performed By: #### B MP3, TROPN #### [address] [address] Total Iron Binding Cap. 491 ug/dL Normal 261-497 [facility] Comment on above: Performed By: #### B MP3, TROPN #### [address] [address] Iron, Total 94 ug/dL Normal 49-181 [facility] Comment on above: Performed By: #### B MP3, TROPN #### [address] [address] [place] [address] Iron and TIBCon 09-24-2021 Iron [Mass/Vol] 94 ug/dL 49 - 181 ug/dL [facility] Sat 19 % 15 - 50 % [facility] TIBC 491 ug/dL 261 - 497 ug/dL [facility] Test Performed by [facility], [address] [place] [id number] [place] [address] LAB [facility] LEGIONELLA AG, URINEon 09-24 LEGIONELLA AG, URINE Not detected Normal [facility] Comment on above: Performed By: #### C UA2, DRGA4 #### [address] [address] [place] [address] Lactic Acidon 09-24-2021 Lactate [Moles/Vol] 1.3 mmol/L Normal 0.7-2.0 [facility] Comment on above: Performed By: #### L ACT3 #### [address] Lactate [Moles/Vol] 1.3 mmol/L 0.7 - 2. 0 mmol/L [facility] Test Performed by [id number] [place] [address] LAB [facility] Lactate [Moles/Vol] 2.6 mmol/L Critically high 0.7-2.0 [facility] Comment on above: Performed By: #### L ACT3 #### [address] Interpretation and review of laboratory results Abnormal [facility] Lactate [Moles/Vol] 2.6 mmol/L Critically high 0.7 - 2.0 mmol/L [facility] Test Performed by [id number] [place] [address] LAB [facility] Lactate [Moles/Vol] 2.4 mmol/L Critically high 0.7-2.0 [facility] Comment on above: Performed By: #### B MP3, TROPN #### [address] Interpretation and review of laboratory results Abnormal [facility] Lactate [Moles/Vol] 2.4 mmol/L Critically high 0.7 - 2.0 mmol/L [facility] Test Performed by [id number] [place] [address] LAB [facility] Lactate [Moles/Vol] 3.3 mmol/L Critically high 0.7-2.0 [facility] Comment on above: Performed By: #### C UA2, DRGA4 #### [address] Interpretation and review of laboratory results Abnormal [facility] Lactate [Moles/Vol] 3.3 mmol/L Critically high 0.7 - 2.0 mmol/L [facility] Test Performed by [id number] [place] [address] LAB [facility] Lactate [Moles/Vol] 5.3 mmol/L Critically high 0.7-2.0 [facility] Comment on above: Performed By: #### B MP3, TROPN #### [address] Interpretation and review of laboratory results Abnormal [facility] Lactate [Moles/Vol] 5.3 mmol/L Critically high 0.7 - 2.0 mmol/L [facility] Test Performed by [id number] [place] [address] LAB [facility] Legionella Antigen, Urineon 09-24-2021 LEGIONELLA ANTIGEN Not detected [facility] Lipaseon 09-24-2021 Lipase [Catalytic activity/Vol] 46 U/L Normal 23-300 [facility] Comment on above: Performed By: #### H EMDF, ETOH4, BMP3, TROPN, LIPA4 #### [facility] [address] [place] [address] Lipid Panelon 09-24-2021 Chol/HDL 5 Normal [facility] Comment on above: Result Comment: Ref Range: < 3 Low Risk for CHD 3-6 Mod Risk for CHD > 6 High Risk for CHD Performed By: #### B MP3, TROPN #### [address] Cholesterol in HDL [Mass/Vol] 39 mg/dL Low 40-60 [facility] Comment on above: Performed By: #### B MP3, TROPN #### [address] Low Density Lipoprotein 134 mg/dL Abnormal <100 [facility] Comment on above: Performed By: #### B MP3, TROPN #### [address] Triglyceride [Mass/Vol] 101 mg/dL Normal <150 [facility] Comment on above: Performed By: #### B MP3, TROPN #### [address] Cholesterol [Mass/Vol] 193 mg/dL Normal < 200 [facility] Comment on above: Performed By: #### B MP3, TROPN #### [address] [address] Cholesterol [Mass/Vol] 193 mg/dL <200 [facility] Cholesterol in HDL [Mass/Vol] 39 mg/dL Low 40 - 60 mg/dL [facility] Cholesterol in LDL [Mass/Vol] 134 mg/dL Abnormal <100 [facility] Cholesterol.total/Namita sterol in HDL [Mass ratio] 5 {ratio} [facility] Comment on above: Ref Range: < 3 Low Risk for CHD 3-6 Mod Risk for CHD > 6 High Risk for CHD Triglyceride [Mass/Vol] 101 mg/dL <150 [facility] Magnesiumon 09-24-2021 Magnesium [Mass/Vol] 1.1 mg/dL Low 1.6-2.3 [facility] Comment on above: Performed By: #### B MP3, TROPN #### [address] Magnesium [Mass/Vol] 1.1 mg/dL Low 1.6 - 2 .3 mg/dL [facility] No Panel Informationon 09-24 Test Performed by [id number] [place] [address] LAB [facility] Test Performed by [id number] [place] [address] LAB [facility] Interpretation and review of laboratory results Abnormal [facility] Test Performed by [id number] [place] [address] LAB [facility] Osmolalityon 09-24-2021 Serum Osmolality 285 mosm/kg 280 - 300 mosm/kg [facility] Test Performed by [id number] [place] [address] LAB [facility] Osmolality,Serumon Osmolality,Serum 285 mosm/kg Normal 280-300 [facility] Comment on above: Performed By: #### B MP3, TROPN #### [address] Respiratory Panel, Molecular , with COVID-19 (Restricted: peds pts or suitable admitted adults)on 09-24-2021 Respiratory Panel Molecular, with COVID NEGATIVE: No targets were detected by the [employer] Upper Respiratory Pathogens PCR Panel. _ Expected Result: Not Detected The [employer] Upper Respiratory Pathogens PCR Panel can detect the following targets: SARS-CoV-2, Adenovirus, Coronavirus 229E, Coronavirus HKU1, Coronavirus NL63, Coronavirus OC43, Human Metapneumovirus, Human Rhinovirus/Enteroviru s, Influenza A, Influenza B, Parainfluenza Virus 1, Parainfluenza Virus 2, Parainfluenza Virus 3, Parainfluenza Virus 4, Respiratory Syncytial Virus, Bordetella pertussis, Bordetella parapertussis, Chlamydia pneumoniae, Mycoplasma pneumoniae. Method: Real-time PCR. [facility] Test Performed by [address] LAB [facility] STREP PNEUMO ANTIGEN, URINEo n 09-24-2021 STREP PNEUMO ANTIGEN, URINE Not detected Normal [facility] Comment on above: Performed By: #### C UA2, DRGA4 #### [address] [phone] STREP PNEUMONIAE ANTIGENon 0 09-24-2021 STREP PNEUMONIAE ANTIGEN, URINE Not detected [facility] Troponinon 09-24-2021 Interpretation and review of laboratory results Abnormal [facility] Troponin I.cardiac [Mass/Vol] 9.570 ng/mL High 0.000 - 0.034 ng/mL [facility] Comment on above: . Test Performed by [address] LAB [facility] Interpretation and review of laboratory results Abnormal [facility] Troponin I.cardiac [Mass/Vol] 11.400 ng/mL High 0.000 - 0.034 ng/mL [facility] Comment on above: . Test Performed by [address] LAB [facility] Interpretation and review of laboratory results Abnormal [facility] Troponin I.cardiac [Mass/Vol] 11.000 ng/mL High 0.000 - 0.034 ng/mL [facility] Comment on above: . Test Performed by [address] [place] [address] [facility] Interpretation and review of laboratory results Abnormal [facility] Troponin I.cardiac [Mass/Vol] 0.459 ng/mL High 0.000 - 0.034 ng/mL [facility] Comment on above: . Test Performed by [address] [address] [facility] Troponin Ion 09-24-2021 Troponin I.cardiac [Mass/Vol] 9.570 ng/mL High 0.000-0.034 [facility] Comment on above: Result Comment: . Performed By: #### B MP3, TROPN #### [address] [address] Troponin I.cardiac [Mass/Vol] 11.400 ng/mL High 0.000-0.034 [facility] Comment on above: Result Comment: . Performed By: #### B MP3, TROPN #### [address] [address] Troponin I.cardiac [Mass/Vol] 11.000 ng/mL High 0.000-0.034 [facility] Comment on above: Result Comment: . Performed By: #### B MP3, TROPN #### [address] [address] Troponin I.cardiac [Mass/Vol] 0.459 ng/mL High 0.000-0.034 [facility] Comment on above: Result Comment: . Performed By: #### B MP3, TROPN #### [address] [address] Troponin I.cardiac [Mass/Vol] ng/mL Normal 0.000-0.034 [facility] Comment on above: Result Comment: . Performed By: #### H EMDF, ETOH4, BMP3, TROPN, LIPA4 #### [facility] [address] [place] [address] Urinalysison 09-24-2021 Appearance (U) Clear Clear NA [facility] Comment on above: . Bacteria, UA Negative Negative /[HPF] [facility] Comment on above: . Bilirubin Urine Negative Negative mg/dL [facility] Comment on above: . Color (U) Yellow Lt. Yellow NA [facility] Comment on above: . Glucose, Ur Normal Normal (<70) mg/dL [facility] Comment on above: . Hyaline Casts, UA Negative Negative /[LPF] [facility] Comment on above: . Interpretation and review of laboratory results Abnormal [facility] Ketones Ql (U) Trace Abnormal Negative mg/dL [facility] Comment on above: . LEUKOCYTES, UA Negative Negative Soren/uL [facility] Comment on above: . Mucous Threads Few Negative /[LPF] [facility] Comment on above: . Nitrite, Urine Negative Negative NA [facility] Comment on above: . Occult Blood,Urine 0.03 mg/dL Abnormal Negative [facility] Comment on above: . pH (U) 6.5 [pH] [facility] Comment on above: . Protein (U) [Mass/Vol] 100 mg/dL Abnormal Negative [facility] Comment on above: . RBC, UA 0-2 0 - 2 /[HPF] [facility] Comment on above: . Specific [place], Urine >1.030 Abnormal [facility] Comment on above: . Squam Epithel, UA 0-2 3 - 5 /[HPF] [facility] Comment on above: . Urobilinogen, Urine Normal Normal ( 0-1) mg/dL [facility] Comment on above: . WBC, UA Negative 0 - 5 /[HPF] [facility] Comment on above: . Test Performed by [facility], [address] [place] [id number] [facility] Urine Drug Screenon 09-25-19 22 Amphetamines, urine Negative [facility] Barbiturates, Urine Negative [facility] Benzodiazepine Ur Qual Positive [facility] Cocaine Metabolites, Ur Negative S [facility] Methadone, Urine Negative [facility] Opiates, Urine Positive [facility] Oxycodone Screen, Ur Positive [facility] A PCP, Urine Negative [facility] Comment on above: The expected value f or all of the drugs listed above is Negative. The following drugs or drug groups have been screened for by Immunoassay at the following thresholds: Amphetamine class (1000 ng/mL), Barbiturates (200 ng/mL), Benzodiazepines (200 ng/mL), Cocaine (300 ng/mL), Methadone (300 ng/mL), Opiates (300 ng/mL), Oxycodone (100 ng/mL), and PCP (25 ng/mL). NOTE: These results are for medical treatment only. Analysis performed using non-forensic procedures. POSITIVE results are NOT confirmed by a more specific alternative method unless requested. If confirmation is needed, request confirmation under separate order. Test Performed by [id number] [place] [address] LAB [facility] VOLATILE PANEL, SERUMon Acetone, Serum Quant Not detected 0.0 - 2 0.0 mg/dL [facility] Comment on above: Toxic>20 Reporting Limit 5 mg/dL NOTE:These results are for medical treatment only. Analysis performed using non-forensic procedures. Ethanol [Mass/Vol] Not detected [facility] Comment on above: Reporting limit 0.01g/dL NOTE:These results are for medical treatment only. Analysis performed using non-forensic procedures. Isopropanol Not detected mg/dL [facility] Comment on above: Toxic>150 Reporting Limit 5 mg/dL NOTE:These results are for medical treatment only. Analysis performed using non-forensic procedures. METHANOL Not detected [facility] Comment on above: Toxic >20 mg/dL Reporting Limit 5 mg/dL NOTE:These results are for medical treatment only. Analysis performed using non-forensic procedures. Test Performed by [facility], [address] [place] [id number] [place] [address] [facility] Vitamin B12on 09-24-2021 Cobalamin (Vitamin B12) [Mass/Vol] 307 pg/mL Normal 239-931 [facility] Comment on above: Performed By: #### B MP3, TROPN #### [address] [address] Cobalamin (Vitamin B12) [Mass/Vol] 307 pg/mL 239 - 931 pg/mL [facility] Test Performed by [address] [address] [facility] Volatile Panel,Serumon 09-24 Acetone,Serum Not detected Normal 0.0-20.0 [facility] Comment on above: Result Comment: Toxi c>20 Reporting Limit 5 mg/dL NOTE:These results are for medical treatment only. Analysis performed using non-forensic procedures. Performed By: #### B MP3, TROPN #### [facility] [address] [place], [place] Ethanol,Serum Not detected Normal [facility] Comment on above: Result Comment: Reporting limit 0.01g/dL NOTE:These results are for medical treatment only. Analysis performed using non-forensic procedures. Performed By: #### B MP3, TROPN #### [facility] [address] [place], [place] Isopropanol,Serum Not detected Normal [facility] Comment on above: Result Comment: Toxi c>150 Reporting Limit 5 mg/dL NOTE:These results are for medical treatment only. Analysis performed using non-forensic procedures. Performed By: #### B MP3, TROPN #### [facility] [address] [place], [place] Methanol,Serum Not detected Normal [facility] Comment on above: Result Comment: Toxic >20 mg/dL Reporting Limit 5 mg/dL NOTE:These results are for medical treatment only. Analysis performed using non-forensic procedures. Performed By: #### B MP3, TROPN #### [facility] [address] [place], [place] Basic Metabolic Panelon 06-0 Anion gap [Moles/Vol] 18 mmol/L High 3 - 13 mmol/L [facility] Work Phone: Calcium [Mass/Vol] 9.5 mg/dL 8.4 - 10. 4 mg/dL [facility] Work Phone: Chloride [Moles/Vol] 99 mmol/L 98 - 10 7 mmol/L [facility] Work Phone: CO2 [Moles/Vol] 23 mmol/L 22 - 30 mmol/L [facility] Work Phone: Creatinine [Mass/Vol] 0.81 mg/dL 0.52 - 1.25 mg/dL [facility] Work Phone: EGFR IF NonAfrican Venezuelan >90.0 >60 mL/min [facility] Work Phone: Comment on above: KDIGO guidelines pro vide the following GFR categories: Stage GFR(ml/min/1.73 m2) Terms G1 >=90 Normal or high G2 60-89 Mildly decreased* G3a 45-59 Mildly to moderately decreased G3b 30-44 Moderately to severely decreased G4 15-29 Severely decreased G5 <15 Kidney failure *Relative to young adult level. In the absence of evidence of kidney damage, neither GFR category G1 nor G2 fulfill the criteria for CKD. The CKD-EPI equation is validated in individuals 18 years of age and older. Currently the best equation for estimating glomerular filtration rate (GFR) from serum creatinine in children is the Bedside Finch equation. It is less accurate in patients with extremes of muscle mass, restriction of dietary protein, ingestion of creatine, extra-renal metabolism of creatinine, or treatment with medications that affect renal tubular creatinine secretion. GFR/1.73 sq M.predicted among blacks MDRD (S/P/Bld) [Vol rate/Area] mL/min/{1.73_m2} >60 mL/min [facility] Work Phone: [phone] Glucose [Mass/Vol] 156 mg/dL High 70 - 100 mg/dL [facility] Work Phone: [phone] Interpretation and review of laboratory results Abnormal [facility] Work Phone: [phone] Potassium [Moles/Vol] 3.4 mmol/L Low 3.5 - 5.1 mmol/L [facility] Work Phone: [phone] Sodium [Moles/Vol] 140 mmol/L 135 - 145 mmol/L [facility] Work Phone: [phone] Urea nitrogen (BldV) [Mass/Vol] 12 mg/dL 7 - 17 mg/dL [facility] Work Phone: CBC with Auto Differentialon 09-23-2021 Absolute Baso # 0.2 10*3/uL 0.0 - 0.2 10*3/uL [facility] Work Phone: [phone] Absolute Neut # 18.1 10*3/uL High 1.8 - 7.0 10*3/uL [facility] Work Phone: [phone] Basophils/100 WBC (Bld) 0.8 % 0.0 - 2.0 % [facility] Work Phone: [phone] Eosinophils (Bld) [#/Vol] 0.0 10*3/uL 0.0 - 0.5 10*3/uL [facility] Work Phone: Eosinophils/100 WBC (Bld) 0.0 % Low 1.0 - 6.0 % [facility] Work Phone: Granulocytes/100 WBC (Bld) 85.7 % High 40.0 - 80.0 % [facility] Work Phone: Hematocrit (Bld) [Volume fraction] 47.1 % 40.0 - 52.0 % [facility] Work Phone: Hemoglobin (Bld) [Mass/Vol] 16.0 g/dL 13.0 - 18.0 g/dL [facility] Work Phone: Interpretation and review of laboratory results Abnormal [facility] Work Phone: Lymphocytes (Bld) [#/Vol] 1.5 10*3/uL 1.0 - 4.3 10*3/uL [facility] Work Phone: Lymphocytes/100 WBC (Bld) 7.2 % Low 20.0 - 40.0 % [facility] Work Phone: MCH (RBC) [Entitic mass] 26.5 pg 26.0 - 34.0 pg [facility] Work Phone: MCHC (RBC) [Mass/Vol] 34.0 % 32.0 - 36.0 % [facility] Work Phone: MCV (RBC) [Entitic vol] 78.1 fL Low 80.0 - 98.0 fL [facility] Work Phone: Monocytes (Bld) [#/Vol] 1.2 10*3/uL High 0.0 - 0.8 10*3/uL [facility] Work Phone: Monocytes/100 WBC (Bld) 5.8 % 2.0 - 10.0 % [facility] Work Phone: Platelet distribution width (Bld) [Ratio] 19.1 % High 11.5 - 14.5 % [facility] Phone: Platelet mean volume (Bld) [Entitic vol] 8.5 fL 7.4 - 12.4 fL [facility] Work Phone: [phone] Comment on above: MPV is a calculated measurement using platelet volume ratio. Platelets (Bld) [#/Vol] 639 10*3/uL High 140 - 440 10*3/uL [facility] Work Phone: [phone] RBC (Bld) [#/Vol] 6.03 10*6/uL High 4.40 - 5.9 0 10*6/uL [facility] Work Phone: WBC (Bld) [#/Vol] 21.1 10*3/uL High 3.6 - 10.7 10*3/uL [facility] Work Phone: [phone] Test Performed by [employer] 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: 2011Q : 1980 Requested By: MIQUEL PORTER Order Number: [id number] Reading MD: Miquel Porter Measurements Intervals [place] Rate: 119 P: 53 MI: 125 QRS: 65 QRSD: 97 T: 92 QT: 337 QTc: 475 Interpretive Statements Sinus tachycardia Probable left ventricular hypertrophy Inferior infarct, acute (RCA) ST elevation, consider lateral injury Compared to ECG 04/13/2021 12:56:56 Myocardial infarct finding now present ST (T wave) deviation now present Sinus rhythm no longer present Electronically Signed On 09-23-2021 23:38:59 EDT by Miquel Porter [facility] Miquel Porter M D - 09/23/2021 [facility] Test Date: 2021-09-23 Pat Name: EL SMITH Department: EMERGENCY Room: 07 Gender: M Dough Panner: 2011Q : 1980 Requested By: MIQUEL PORTER Order Number: [id number] Reading MD: Miquel Porter Measurements Intervals [place] Rate: 119 P: 53 MI: 125 QRS: 65 QRSD: 97 T: 92 QT: 337 QTc: 475 Interpretive Statements Sinus tachycardia Probable left ventricular hypertrophy Inferior infarct, acute (RCA) ST elevation, consider lateral injury Compared to ECG 04/13/2021 12:56:56 Myocardial infarct finding now present ST (T wave) deviation now present Sinus rhythm no longer present Electronically Signed On 09-23-2021 23:38:59 EDT by Miquel Porter [facility] Work Phone: [phone] [facility] Work Phone: [phone] Ethanolon 09-23-2021 Ethanol Lvl <0.010 0.000 - 0.010 g/dL [facility] Work Phone: Comment on above: NOTE: This result is for medical treatment only. Analysis performed using non-forensic procedures. Lipaseon 09-23-2021 Lipase [Catalytic activity/Vol] 46 U/L 23 - 300 U/L [facility] Work Phone: [phone] No Panel Informationon 09-23 Add On Accepted [facility] Comment on above: Specimen available & acceptable for analysis. Test Performed by [facility] [employer] [facility], [facility] [place] [address] LAB [facility] Test Performed by [facility], [facility] [place] [address] LAB [facility] Work Phone: [phone] Troponin x1on 09-23-2021 Troponin I.cardiac [Mass/Vol] ng/mL 0.000 - 0.034 ng/mL [facility] Work Phone: Comment on above: . Test Performed by [facility] [employer], [address] LAB [facility] Work Phone: XR CHEST PORTABLEon 09-24-19 Patient Name: EL SMITH Diagnostic Radiology ACCESSION EXAM DATE/TIME PROCEDURE ORDERING PROVIDER [id number] 09/23/2021 23:19 EDT CR Chest Portable MD PORTER VIJAY CPT code 94187 Reason For Exam (CR Chest Portable) chest pain Report CHEST SINGLE VIEW CLINICAL INFORMATION: Chest pain A frontal view of the chest was obtained. No acute pulmonary disease is noted. The cardiovascular silhouette is within normal limits. IMPRESSION: No acute pulmonary disease. Report Dictated on --- Final --- Dictating Physician: MD MARTIN WILLIAM Signed Date and Time: 09/23/2021 11:40 pm Signed by: MD MARTIN WILLIAM Transcribed Date and Time: 09/23/2021 11:41 [place] Fransisco Zafar MD - 09/23/2021 Patient Name: EL SMITH Diagnostic Radiology ACCESSION EXAM DATE/TIME PROCEDURE ORDERING PROVIDER [id number] 09/23/2021 23:19 EDT CR Chest Portable MD PORTER VIJAY CPT code 59930 Reason For Exam (CR Chest Portable) chest pain Report CHEST SINGLE VIEW CLINICAL INFORMATION: Chest pain A frontal view of the chest was obtained. No acute pulmonary disease is noted. The cardiovascular silhouette is within normal limits. IMPRESSION: No acute pulmonary disease. Report Dictated on --- Final --- Dictating Physician: MD MARTIN WILLIAM Signed Date and Time: 09/23/2021 11:40 pm Signed by: MD MARTIN WILLIAM Transcribed Date and Time: 09/23/2021 11:41 [facility] Work Phone: Radiology Study observation (narrative) [facility] Work Phone: XR CHEST PORTABLEOrdered By: Fransisco Martin on 09-23-2021 [facility] Work Phone: Add on test from HISon 04-17 Add on test from HIS Accepted Normal [facility] Comment on above: Result Comment: Spec imen available & acceptable for analysis. Performed By: #### A DDON #### [facility] [address] [place] [address] Basic Metabolic Panelon 12-3 Calcium [Mass/Vol] 8.7 mg/dL Normal 8.4-10.4 [facility] Comment on above: Performed By: #### A DDON #### [facility] [address] [place] [address] Glucose [Mass/Vol] 118 mg/dL High 70-100 [facility] Comment on above: Performed By: #### A DDON #### [facility] [address] [place] [address] Urea nitrogen [Mass/Vol] 12 mg/dL Normal 7-17 [facility] Comment on above: Performed By: #### A DDON #### [facility] [address] [place] [address] Anion gap [Moles/Vol] 12 mmol/L Normal 3-13 [facility] Comment on above: Performed By: #### A DDON #### [facility] [address] [place] [address] CO2 [Moles/Vol] 21 mmol/L Low 22-30 [facility] Comment on above: Performed By: #### A DDON #### [facility] [address] [place] [address] Creatinine [Mass/Vol] 0.63 mg/dL Normal 0.52-1.25 [facility] Comment on above: Performed By: #### A DDON #### [facility] [address] [place] [address] eGFR OTHER > 90.0 Normal >60 [facility] Comment on above: Result Comment: KDIG O guidelines provide the following GFR categories: Stage GFR(ml/min/1.73 m2) Terms G1 >=90 Normal or high G2 60-89 Mildly decreased* G3a 45-59 Mildly to moderately decreased G3b 30-44 Moderately to severely decreased G4 15-29 Severely decreased G5 <15 Kidney failure *Relative to young adult level. In the absence of evidence of kidney damage, neither GFR category G1 nor G2 fulfill the criteria for CKD. The CKD-EPI equation is validated in individuals 18 years of age and older. Currently the best equation for estimating glomerular filtration rate (GFR) from serum creatinine in children is the Bedside Finch equation. It is less accurate in patients with extremes of muscle mass, restriction of dietary protein, ingestion of creatine, extra-renal metabolism of creatinine, or treatment with medications that affect renal tubular creatinine secretion. Performed By: #### A DDON #### [facility] [address] [place] [address] GFR/1.73 sq M.predicted among blacks MDRD (S/P/Bld) [Vol rate/Area] mL/min/{1.73_m2} Normal >60 [facility] Comment on above: Performed By: #### A DDON #### [facility] [address] [place] [address] Potassium [Moles/Vol] 3.1 mmol/L Low 3.5-5.1 [facility] Comment on above: Performed By: #### A DDON #### [facility] [address] [place] [address] Sodium [Moles/Vol] 138 mmol/L Normal 135-145 [facility] Comment on above: Performed By: #### A DDON #### [facility] [address] [place] [address] Chloride [Moles/Vol] 104 mmol/L Normal 98-107 [facility] Comment on above: Performed By: #### A DDON #### [facility] [address] [place] [address] Ethanol Serum/Plasmaon 04-17 Ethanol-Serum/Plasma 0.190 g/dL High 0.000-0.010 [facility] Comment on above: Result Comment: NOTE : This result is for medical treatment only. Analysis performed using non-forensic procedures. Performed By: #### A DDON #### [facility] [address] [place] [address] Hemogram w/ Autodiffon 04-17 Erythrocyte distribution width (RBC) [Ratio] 14.7 % High 11.5-14.5 [facility] Comment on above: Performed By: #### A DDON #### [facility] [address] [place] [address] Hematocrit (Bld) [Volume fraction] 46.0 % Normal 40.0-52.0 [facility] Comment on above: Performed By: #### A DDON #### [facility] [address] [place] [address] Hemoglobin (Bld) [Mass/Vol] 15.5 g/dL Normal 13.0-18.0 [facility] Comment on above: Performed By: #### A DDON #### [facility] [address] [place] [address] MCH (RBC) [Entitic mass] 28.0 pg Normal 26.0-34.0 [facility] Comment on above: Performed By: #### A DDON #### [facility] [address] [place] [address] MCHC 33.7 % Normal 32.0-36.0 [facility] Comment on above: Performed By: #### A DDON #### [facility] [address] [place] [address] MCV (RBC) [Entitic vol] 83.1 fL Normal 80.0-98.0 [facility] Comment on above: Performed By: #### A DDON #### [facility] [address] [place] [address] Platelet mean volume (Bld) [Entitic vol] 6.4 fL Low 7.4-10.4 [facility] Comment on above: Performed By: #### A DDON #### [facility] [address] [place] [address] Platelets (Bld) [#/Vol] 631 10*3/uL High 140-440 [facility] Comment on above: Performed By: #### A DDON #### [facility] [address] [place] [address] RBC (Bld) [#/Vol] 5.54 10*6/uL Normal 4.40-5.90 [facility] Comment on above: Performed By: #### A DDON #### [facility] [address] [place] [address] WBC (Bld) [#/Vol] 10.3 10*3/uL Normal 3.6-10.7 [facility] Comment on above: Performed By: #### A DDON #### [facility] [address] [place] [address] Hepatic Functionon 1 ALP [Catalytic activity/Vol] 123 U/L Normal 38-126 [facility] Comment on above: Performed By: #### A DDON #### [facility] [address] [place] [address] ALT [Catalytic activity/Vol] 18 U/L Normal 0-49 [facility] Comment on above: Result Comment: The ALT test is performed by an updated assay method. Please note that the reference intervals have been changed and are now sex specific. Performed By: #### A DDON #### [facility] [address] [place] [address] AST [Catalytic activity/Vol] 45 U/L Normal 15-46 [facility] Comment on above: Performed By: #### A DDON #### [facility] [address] [place] [address] Bilirubin [Mass/Vol] 0.7 mg/dL Normal 0.2-1.3 [facility] Comment on above: Performed By: #### A DDON #### [facility] [address] [place] [address] Bilirubin.indirect [Mass/Vol] 0.0 mg/dL Normal 0.0-0.3 [facility] Comment on above: Performed By: #### A DDON #### [facility] [address] [place] [address] Protein [Mass/Vol] 6.8 g/dL Normal 6.3-8.2 [facility] Comment on above: Performed By: #### A DDON #### [facility] [address] [place] [address] Albumin [Mass/Vol] 3.8 g/dL Normal 3.5-5.0 [facility] Comment on above: Performed By: #### A DDON #### [facility] [address] [place] [address] Lipaseon 04-17-2021 Lipase [Catalytic activity/Vol] 108 U/L Normal 23-300 [facility] Comment on above: Performed By: #### L FT3, ETOH4, MDIFF, LIPA4, HEMDF, BMP3 ####[facility] [place] [address] Manual Diffon 04-17-2021 Abs Lymph Cnt 2.8 10*3/uL Normal 1.1-4.[address] [facility] Comment on above: Performed By: #### A DDON #### [facility] [address] [place] [address] Abs Monocyte Cnt 0.8 10*3/uL Normal 0.2-1.1 [facility] Comment on above: Performed By: #### A DDON #### [facility] [address] [place] [address] Abs Neutrophile Cnt 6.5 10*3/uL Normal 2.2-8.2 [facility] Comment on above: Performed By: #### A DDON #### [facility] [address] [place] [address] Atypical Lymphocytes 7 % Abnormal <1 [facility] Comment on above: Performed By: #### A DDON #### [facility] [address] [place] [address] Bands 1 % Normal 0-3 [facility] Comment on above: Performed By: #### A DDON #### [facility] [address] [place] [address] Lymphocytes 20 % Normal 20-40 [facility] Comment on above: Performed By: #### A DDON #### [facility] [address] [place] [address] Metamyelocytes 1 % Abnormal <[address] [facility] Comment on above: Performed By: #### A DDON #### [facility] [address] [place] [address] Monocytes 8 % Normal 2-10 [facility] Comment on above: Performed By: #### A DDON #### [facility] [address] [place] [address] Myelocytes 1 % Abnormal <1 [facility] Comment on above: Performed By: #### A DDON #### [facility] [address] [place] [address] RBC Morphology Normal Normal [facility] Comment on above: Performed By: #### A DDON #### [facility] [address] [place] [address] Seg Neutrophils 62 % Normal 40-80 [facility] Comment on above: Performed By: #### A DDON #### [facility] [address] [place] [address] Abs Baso Cnt 0.0 10*3/uL Normal 0.0-0.2 [facility] Comment on above: Performed By: #### A DDON #### [facility] [address] [place] [address] Abs Eosin Cnt 0.0 10*3/uL Normal 0.0-0.5 [facility] Comment on above: Performed By: #### A DDON #### [facility] [address] [place] [address] Basophils 0 % Normal 0-2 [facility] Comment on above: Performed By: #### A DDON #### [facility] [address] [place] [address] Cells counted 100 Normal [facility] Comment on above: Performed By: #### A DDON #### [facility] [address] [place] [address] Eosinophils 0 % Low 1-6 [facility] Comment on above: Performed By: #### A DDON #### [facility] [address] [place] [address] CT Abdomen and Pelvis W cont rast Luca 04-13-2021 Patient Name: EL SMITH Computed Tomography ACCESSION EXAM DATE/TIME PROCEDURE ORDERING PROVIDER [id number] 04/13/2021 12:[address] Abdomen/Pelvis w/ [place] [id number] -NESHEIM, PRINCE Contrast (IV Onl CPT code 76892 Q9967 Reason For Exam (CT Abdomen/Pelvis w/ IV Contrast (IV Onl) epigastric pain Report CT ABDOMEN AND PELVIS WITH CONTRAST CLINICAL INDICATION: Abdominal pain. TECHNIQUE: Multi-axial 3mm sections through the abdomen and pelvis following 75 mL of Isoview contrast media. No oral contrast was administered. Coronal and sagittal reconstructions were reviewed. COMPARISON: September 22, 2019. FINDINGS: Lower thorax: Normal. Stomach: Unremarkable. Liver: Normal size and contours. No focal lesion. Biliary tree: Unremarkable gallbladder by CT. No biliary dilatation. Spleen: Normal. Adrenals: Normal. Pancreas: Normal. Kidneys: Few scattered, nonobstructing bilateral renal calculi, the largest of which measures up to 4 mm in the interpolar right kidney. The remaining calculi measure approximately 2 mm. Partially exophytic 17 mm right renal cortical hypodensity which had CT attenuation values consistent with a cyst on the June [address] CT. Otherwise no focal renal lesion. Symmetric contrast enhancement without evidence of hydronephrosis. Free air or fluid: None. Mesenteric/retroperit massey: No adenopathy or inflammation. Aorta: Normal caliber of aorta and bilateral common iliac arteries. Bowel: Normal appendix without inflammatory change in the right lower quadrant. No inflammatory change or bowel dilatation is noted. Computed Tomography Report Urinary bladder: Unremarkable. Abdominal wall/soft tissues: No ventral hernia is evident. Inguinal: No lymphadenopathy. Osseous structures: Unremarkable osseous structures. No suspicious osseous lesion. IMPRESSION: Few scattered, nonobstructing bilateral renal calculi, the largest of which measures up to 4 mm in the interpolar right kidney. The remaining calculi measure approximately 2 mm. Otherwise no evidence of an acute infectious or inflammatory process in the abdomen or pelvis. Report Dictated on --- Final --- Dictating Physician: MD SIFUENTES JASON Signed Date and Time: 04/13/2021 2:19 pm Signed by: MD SIFUENTES JASON Transcribed Date and Time: 04/13/2021 2:20 [facility] Ge Sifuentes MD - 04/13/2021 Patient Name: EL SMITH Computed Tomography ACCESSION EXAM DATE/TIME PROCEDURE ORDERING PROVIDER [id number] 04/13/2021 12:[address] Abdomen/Pelvis w/ IV [id number] -JOHANNAKHUSHBOO PRINCE Contrast (IV Onl CPT code 20171 Q9967 Reason For Exam (CT Abdomen/Pelvis w/ IV Contrast (IV Onl) epigastric pain Report CT ABDOMEN AND PELVIS WITH CONTRAST CLINICAL INDICATION: Abdominal pain. TECHNIQUE: Multi-axial 3mm sections through the abdomen and pelvis following 75 mL of Isoview contrast media. No oral contrast was administered. Coronal and sagittal reconstructions were reviewed. COMPARISON: September 22, 2019. FINDINGS: Lower thorax: Normal. Stomach: Unremarkable. Liver: Normal size and contours. No focal lesion. Biliary tree: Unremarkable gallbladder by CT. No biliary dilatation. Spleen: Normal. Adrenals: Normal. Pancreas: Normal. Kidneys: Few scattered, nonobstructing bilateral renal calculi, the largest of which measures up to 4 mm in the interpolar right kidney. The remaining calculi measure approximately 2 mm. Partially exophytic 17 mm right renal cortical hypodensity which had CT attenuation values consistent with a cyst on the June 2019 CT. Otherwise no focal renal lesion. Symmetric contrast enhancement without evidence of hydronephrosis. Free air or fluid: None. Mesenteric/retroperit massey: No adenopathy or inflammation. Aorta: Normal caliber of aorta and bilateral common iliac arteries. Bowel: Normal appendix without inflammatory change in the right lower quadrant. No inflammatory change or bowel dilatation is noted. Computed Tomography Report Urinary bladder: Unremarkable. Abdominal wall/soft tissues: No ventral hernia is evident. Inguinal: No lymphadenopathy. Osseous structures: Unremarkable osseous structures. No suspicious osseous lesion. IMPRESSION: Few scattered, nonobstructing bilateral renal calculi, the largest of which measures up to 4 mm in the interpolar right kidney. The remaining calculi measure approximately 2 mm. Otherwise no evidence of an acute infectious or inflammatory process in the abdomen or pelvis. Report Dictated on --- Final --- Dictating Physician: MD SIFUENTES JASON Signed Date and Time: 04/13/2021 2:19 pm Signed by: MD SIFUENTES JASON Transcribed Date and Time: 04/13/2021 2:20 [facility] Work Phone: Radiology Study observation (narrative) [facility] Work Phone: CT Abdomen and Pelvis W cont rast IVOrdered By: Ge Sifuentes on 04-13-2021 [facility] Work Phone: CT Abdomen/Pelvis w/ Contras ton 04-13-2021 CT Abdomen/Pelvis w/ Contrast Patient Name: EL SMITH Computed Tomography ACCESSION EXAM DATE/TIME PROCEDURE ORDERING PROVIDER [id number] 04/13/2021 12:[address] Abdomen/Pelvis w/ IV [id number] -NESHEIM, PRINCE Contrast (IV Onl CPT code 98984 Q9967 Reason For Exam (CT Abdomen/Pelvis w/ IV Contrast (IV Onl) epigastric pain Report CT ABDOMEN AND PELVIS WITH CONTRAST CLINICAL INDICATION: Abdominal pain. TECHNIQUE: Multi-axial 3mm sections through the abdomen and pelvis following 75 mL of Isoview contrast media. No oral contrast was administered. Coronal and sagittal reconstructions were reviewed. COMPARISON: September 22, 2019. FINDINGS: Lower thorax: Normal. Stomach: Unremarkable. Liver: Normal size and contours. No focal lesion. Biliary tree: Unremarkable gallbladder by CT. No biliary dilatation. Spleen: Normal. Adrenals: Normal. Pancreas: Normal. Kidneys: Few scattered, nonobstructing bilateral renal calculi, the largest of which measures up to 4 mm in the interpolar right kidney. The remaining calculi measure approximately 2 mm. Partially exophytic 17 mm right renal cortical hypodensity which had CT attenuation values consistent with a cyst on the June 2019 CT. Otherwise no focal renal lesion. Symmetric contrast enhancement without evidence of hydronephrosis. Free air or fluid: None. Mesenteric/retroperit massey: No adenopathy or inflammation. Aorta: Normal caliber of aorta and bilateral common iliac arteries. Bowel: Normal appendix without inflammatory change in the right lower quadrant. No inflammatory change or bowel dilatation is noted. Computed Tomography Report Urinary bladder: Unremarkable. Abdominal wall/soft tissues: No ventral hernia is evident. Inguinal: No lymphadenopathy. Osseous structures: Unremarkable osseous structures. No suspicious osseous lesion. IMPRESSION: Few scattered, nonobstructing bilateral renal calculi, the largest of which measures up to 4 mm in the interpolar right kidney. The remaining calculi measure approximately 2 mm. Otherwise no evidence of an acute infectious or inflammatory process in the abdomen or pelvis. Report Dictated on Final Dictating Physician: MD SIFUENTES JASON Signed Date and Time: 04/13/2021 2:19 pm Signed by: MD SIFUENTES JASON Transcribed Date and Time: 04/13/2021 2:20 Normal [facility] Comp Metabolic Panelon 04-13 ALT [Catalytic activity/Vol] 30 U/L Normal 0-49 [facility] Comment on above: Result Comment: The ALT test is performed by an updated assay method. Please note that the reference intervals have been changed and are now sex specific. Performed By: #### A DDON #### [facility] [address] [place] [address] Calcium [Mass/Vol] 9.0 mg/dL Normal 8.4-10.4 [facility] Comment on above: Performed By: #### A DDON #### [facility] [address] [place] [address] ALP [Catalytic activity/Vol] 110 U/L Normal 38-126 [facility] Comment on above: Performed By: #### A DDON #### [facility] [address] [place] [address] Anion gap [Moles/Vol] 7 mmol/L Normal 3-13 [facility] Comment on above: Performed By: #### A DDON #### [facility] [address] [place] [address] AST [Catalytic activity/Vol] 31 U/L Normal 15-46 [facility] Comment on above: Performed By: #### A DDON #### [facility] [address] [place] [address] Bilirubin [Mass/Vol] 0.4 mg/dL Normal 0.2-1.3 [facility] Comment on above: Performed By: #### A DDON #### [facility] [address] [place] [address] CO2 [Moles/Vol] 27 mmol/L Normal 22-30 [facility] Comment on above: Performed By: #### A DDON #### [facility] [address] [place] [address] Creatinine [Mass/Vol] 0.72 mg/dL Normal 0.52-1.25 [facility] Comment on above: Performed By: #### A DDON #### [facility] [address] [place] [address] eGFR OTHER > 90.0 Normal >60 [facility] Comment on above: Result Comment: KDIG O guidelines provide the following GFR categories: Stage GFR(ml/min/1.73 m2) Terms G1 >=90 Normal or high G2 60-89 Mildly decreased* G3a 45-59 Mildly to moderately decreased G3b 30-44 Moderately to severely decreased G4 15-29 Severely decreased G5 <15 Kidney failure *Relative to young adult level. In the absence of evidence of kidney damage, neither GFR category G1 nor G2 fulfill the criteria for CKD. The CKD-EPI equation is validated in individuals 18 years of age and older. Currently the best equation for estimating glomerular filtration rate (GFR) from serum creatinine in children is the Bedside Finch equation. It is less accurate in patients with extremes of muscle mass, restriction of dietary protein, ingestion of creatine, extra-renal metabolism of creatinine, or treatment with medications that affect renal tubular creatinine secretion. Performed By: #### A DDON #### [facility] [address] [place] [address] GFR/1.73 sq M.predicted among blacks MDRD (S/P/Bld) [Vol rate/Area] mL/min/{1.73_m2} Normal >60 [facility] Comment on above: Performed By: #### A DDON #### [facility] [address] [place] [address] Glucose [Mass/Vol] 113 mg/dL High 70-100 [facility] Comment on above: Performed By: #### A DDON #### [facility] [address] [place] [address] Protein [Mass/Vol] 6.9 g/dL Normal 6.3-8.2 [facility] Comment on above: Performed By: #### A DDON #### [facility] [address] [place] [address] Urea nitrogen [Mass/Vol] 14 mg/dL Normal 7-17 [facility] Comment on above: Performed By: #### A DDON #### [facility] [address] [place] [address] Potassium [Moles/Vol] 3.1 mmol/L Low 3.5-5.1 [facility] Comment on above: Performed By: #### A DDON #### [facility] [address] [place] [address] Sodium [Moles/Vol] 141 mmol/L Normal 135-145 [facility] Comment on above: Performed By: #### A DDON #### [facility] [address] [place] [address] Albumin [Mass/Vol] 4.0 g/dL Normal 3.5-5.0 [facility] Comment on above: Performed By: #### A DDON #### [facility] [address] [place] [address] Chloride [Moles/Vol] 107 mmol/L Normal 98-107 [facility] Comment on above: Performed By: #### A DDON #### [facility] [address] [place] [address] Comprehensive Metabolic Pane [facility] 04-13-2021 Albumin [Mass/Vol] 4.0 g/dL 3.5 - 5.0 g/dL [facility] ALP (Bld) [Catalytic activity/Vol] 110 U/L 38 - 126 U/L [facility] ALT [Catalytic activity/Vol] 30 U/L 0 - 49 U/L [facility] Comment on above: The ALT test is perf ormed by an updated assay method. Please note that the reference intervals have been changed and are now sex specific. Anion gap [Moles/Vol] 7 mmol/L 3 - 13 mmol/L [facility] AST [Catalytic activity/Vol] 31 U/L 15 - 46 U/L [facility] Bilirubin [Mass/Vol] 0.4 mg/dL 0.2 - 1 .3 mg/dL [facility] Calcium [Mass/Vol] 9.0 mg/dL 8.4 - 10. 4 mg/dL [facility] Chloride [Moles/Vol] 107 mmol/L 98 - 10 7 mmol/L [facility] CO2 [Moles/Vol] 27 mmol/L 22 - 30 mmol/L [facility] Creatinine [Mass/Vol] 0.72 mg/dL 0.52 - 1.25 mg/dL [facility] EGFR IF NonAfrican Venezuelan >90.0 >60 mL/min [facility] Comment on above: KDIGO guidelines pro vide the following GFR categories: Stage GFR(ml/min/1.73 m2) Terms G1 >=90 Normal or high G2 60-89 Mildly decreased* G3a 45-59 Mildly to moderately decreased G3b 30-44 Moderately to severely decreased G4 15-29 Severely decreased G5 <15 Kidney failure *Relative to young adult level. In the absence of evidence of kidney damage, neither GFR category G1 nor G2 fulfill the criteria for CKD. The CKD-EPI equation is validated in individuals 18 years of age and older. Currently the best equation for estimating glomerular filtration rate (GFR) from serum creatinine in children is the Bedside Finch equation. It is less accurate in patients with extremes of muscle mass, restriction of dietary protein, ingestion of creatine, extra-renal metabolism of creatinine, or treatment with medications that affect renal tubular creatinine secretion. Free PSA/Total PSA [Mass fraction] 6.9 g/dL 6.3 - 8.2 g/dL [facility] GFR/1.73 sq M.predicted among blacks MDRD (S/P/Bld) [Vol rate/Area] mL/min/{1.73_m2} >60 mL/min [facility] Glucose [Mass/Vol] 113 mg/dL High 70 - 100 mg/dL [facility] Interpretation and review of laboratory results Abnormal [facility] Potassium [Moles/Vol] 3.1 mmol/L Low 3.5 - 5.1 mmol/L [facility] Sodium [Moles/Vol] 141 mmol/L 135 - 145 mmol/L [facility] Urea nitrogen (BldV) [Mass/Vol] 14 mg/dL 7 - 17 mg/dL [facility] Hemogramon 04-13-2021 Erythrocyte distribution width (RBC) [Ratio] 14.6 % High 11.5-14.5 [facility] Comment on above: Performed By: #### A DDON #### [facility] [address] [place] [address] Hematocrit (Bld) [Volume fraction] 47.2 % Normal 40.0-52.0 [facility] Comment on above: Performed By: #### A DDON #### [facility] [address] [place] [address] Hemoglobin (Bld) [Mass/Vol] 16.1 g/dL Normal 13.0-18.0 [facility] Comment on above: Performed By: #### A DDON #### [facility] [address] [place] [address] MCH (RBC) [Entitic mass] 28.5 pg Normal 26.0-34.0 [facility] Comment on above: Performed By: #### A DDON #### [facility] [address] [place] [address] MCHC 34.1 % Normal 32.0-36.0 [facility] Comment on above: Performed By: #### A DDON #### [facility] [address] [place] [address] MCV (RBC) [Entitic vol] 83.5 fL Normal 80.0-98.0 [facility] Comment on above: Performed By: #### A DDON #### [facility] [address] [place] [address] Platelet mean volume (Bld) [Entitic vol] 6.6 fL Low 7.4-10.4 [facility] Comment on above: Performed By: #### A DDON #### [facility] [address] [place] [address] Platelets (Bld) [#/Vol] 731 10*3/uL High 140-440 [facility] Comment on above: Performed By: #### A DDON #### [facility] [address] [place] [address] RBC (Bld) [#/Vol] 5.66 10*6/uL Normal 4.40-5.90 [facility] Comment on above: Performed By: #### A DDON #### [facility] [address] [place] [address] WBC (Bld) [#/Vol] 10.0 10*3/uL Normal 3.6-10.7 [facility] Comment on above: Performed By: #### A DDON #### [facility] [address] [place] [address] Hemogram (CBC)on 04-13-2021 Hematocrit (Bld) [Volume fraction] 47.2 % 40.0 - 52.0 % [facility] Hemoglobin.gastrointest inal spec 1 Ql (Stl) 16.1 g/dL 13.0 - 18.0 g/dL [facility] Interpretation and review of laboratory results Abnormal [facility] MCH (RBC) [Entitic mass] 28.5 pg 26.0 - 34.0 pg [facility] MCHC (RBC) [Mass/Vol] 34.1 % 32.0 - 36.0 % [facility] MCV (RBC) [Entitic vol] 83.5 fL 80.0 - 98.0 fL [facility] Platelet distribution width (Bld) [Ratio] 14.6 % High 11.5 - 14.5 % [facility] Platelet mean volume (Bld) [Entitic vol] 6.6 fL Low 7.4 - 10.4 fL [facility] Platelets (Bld) [#/Vol] 731 10*3/uL High 140 - 440 10*3/uL [facility] RBC (Bld) [#/Vol] 5.66 10*6/uL 4.40 - 5.9 0 10*6/uL [facility] WBC (Bld) [#/Vol] 10.0 10*3/uL 3.6 - 10.7 10*3/uL [facility] Test Performed by [facility], [address] LAB [facility] Lipaseon 04-13-2021 Lipase [Catalytic activity/Vol] 176 U/L Normal 23-300 [facility] Comment on above: Performed By: #### A DDON #### [facility] [address] [place] [address] Lipase [Catalytic activity/Vol] 176 U/L 23 - 300 U/L [facility] No Panel Informationon 04-13 Test Performed by [facility], [address] , [address] LAB [facility] Troponin Ion 04-13-2021 Troponin I.cardiac [Mass/Vol] ng/mL Normal 0.000-0.034 [facility] Comment on above: . Result Comment: . Performed By: #### A DDON #### [facility] [address] [place] [address] Troponin x1on 04-13-2021 Test Performed by [facility], [address] , [place], [place] [id number] [place] [address] LAB [facility] CR Spine Lumbosacral 2 or 3 Viewson 12-28-2020 CR Spine Lumbosacral 2 or 3 Views Patient Name: EL SMITH Diagnostic Radiology ACCESSION EXAM DATE/TIME PROCEDURE ORDERING PROVIDER [id number] 12/28/2020 09:36 EDT CR Spine Lumbosacral 2 MD CHRISTIE, HOMERO R. or 3 Views CPT code 12154 Reason For Exam (CR Spine Lumbosacral 2 or 3 Views) low back pain, chronic. was told had an L5 s1 disc herniation. DJD? Report EXAMINATION: LUMBAR SPINE RADIOGRAPH CLINICAL INDICATION: Chronic low back pain for 12 years. Pain radiates to right leg. TECHNIQUE: Frontal, lateral, coned-down views of the lumbar spine COMPARISON: Lumbar spine radiograph 03/13/2020. FINDINGS: Mild straightening of usual lumbar lordosis. Vertebral body heights are preserved. Mild to moderate disc height loss at L5-S1 with facet hypertrophy, similar to prior exam 03/13/2020. Remaining disc heights are preserved. No abnormal calcifications within the partially visualized abdomen. IMPRESSION: Mild degenerative changes at L5-S1, unchanged from prior exam 03/13/2020. No acute osseous abnormality. Report Dictated on Final Dictating Physician: MD CAROL, JEANETTE HARE Signed Date and Time: 12/28/2020 10:26 am Signed by: MD CAROL, JEANETTE HARE Transcribed Date and Time: 12/28/2020 10:27 Normal [facility] XR LUMBAR SPINE (2-3 VIEWS)O rdered By: Marquise Nair on 12-28-2020 Patient Name: EL SMITH Diagnostic Radiology ACCESSION EXAM DATE/TIME PROCEDURE ORDERING PROVIDER [id number] 12/28/2020 09:36 EDT CR Spine Lumbosacral 2 MD NAIR DOUGALAS R. or 3 Views CPT code 02982 Reason For Exam (CR Spine Lumbosacral 2 or 3 Views) low back pain, chronic. was told had an L5 s1 disc herniation. DJD? Report EXAMINATION: LUMBAR SPINE RADIOGRAPH CLINICAL INDICATION: Chronic low back pain for 12 years. Pain radiates to right leg. TECHNIQUE: Frontal, lateral, coned-down views of the lumbar spine COMPARISON: Lumbar spine radiograph 03/13/2020. FINDINGS: Mild straightening of usual lumbar lordosis. Vertebral body heights are preserved. Mild to moderate disc height loss at L5-S1 with facet hypertrophy, similar to prior exam 03/13/2020. Remaining disc heights are preserved. No abnormal calcifications within the partially visualized abdomen. IMPRESSION: Mild degenerative changes at L5-S1, unchanged from prior exam 03/13/2020. No acute osseous abnormality. Report Dictated on --- Final --- Dictating Physician: MD CAROL, JEANETTE HARE Signed Date and Time: 12/28/2020 10:26 am Signed by: MD CAROL, JEANETTE HARE Transcribed Date and Time: 12/28/2020 10:27 [facility] Work Phone: [facility] In[facility] Radiology Results From [facility] - 12/28/2020 10:27 AM EDT Patient Name: EL SMITH Diagnostic Radiology ACCESSION EXAM DATE/TIME PROCEDURE ORDERING PROVIDER [id number] 12/28/2020 09:36 EDT CR Spine Lumbosacral 2 MD NAIR DOUGALAS R. or 3 Views CPT code 64176 Reason For Exam (CR Spine Lumbosacral 2 or 3 Views) low back pain, chronic. was told had an L5 s1 disc herniation. DJD? Report EXAMINATION: LUMBAR SPINE RADIOGRAPH CLINICAL INDICATION: Chronic low back pain for 12 years. Pain radiates to right leg. TECHNIQUE: Frontal, lateral, coned-down views of the lumbar spine COMPARISON: Lumbar spine radiograph 03/13/2020. FINDINGS: Mild straightening of usual lumbar lordosis. Vertebral body heights are preserved. Mild to moderate disc height loss at L5-S1 with facet hypertrophy, similar to prior exam 03/13/2020. Remaining disc heights are preserved. No abnormal calcifications within the partially visualized abdomen. IMPRESSION: Mild degenerative changes at L5-S1, unchanged from prior exam 03/13/2020. No acute osseous abnormality. Report Dictated on --- Final --- Dictating Physician: MD CAROL, JEANETTE HARE Signed Date and Time: 12/28/2020 10:26 am Signed by: MD CAROL, JEANETTE HARE Transcribed Date and Time: 12/28/2020 10:27 [facility] Work Phone: [facility] Work Phone: Basic Metabolic Profile (BMP )on 12-02-2020 BUN/CRE 36.1 RATIO High 10-20 [facility] Comment on above: Performed By: #### L 500.2500, L100.0100 #### [facility] [address] [place], [address] CA,Total 8.8 mg/dL Normal 8.5-10.1 [facility] Comment on above: Performed By: #### L 500.2500, L100.0100 #### [facility] [address] [place], [address] Chloride [Moles/Vol] 103 mmol/L Normal 98-107 [facility] Comment on above: Performed By: #### L 500.2500, L100.0100 #### [facility] [address] [place], [address] CO2 [Moles/Vol] 26.0 mmol/L Normal 21.0-32.0 [facility] Comment on above: Performed By: #### L 500.2500, L100.0100 #### [facility] [address] [place], [address] Creatinine [Mass/Vol] 0.69 mg/dL Low 0.70-1.30 [facility] Comment on above: Result Comment: The validity of the calculated GFR GFRAA in patients over 70 years has not been determined. Clinical correlation is essential. Performed By: #### L 500.2500, L100.0100 #### [facility] [address] [place], [address] ECRCL 148.41 ml/min Normal [facility] Comment on above: Performed By: #### L 500.2500, L100.0100 #### [facility] [address] [place], [address] EST GFR - AA 164 mL/min Normal >60 [facility] Comment on above: Result Comment: Afri can Venezuelan GFR Calc Performed By: #### L 500.2500, L100.0100 #### [facility] [address] [place], [address] GAP 8 Normal 5-15 [facility] Comment on above: Performed By: #### L 500.2500, L100.0100 #### [facility] [address] [place], [address] GFR/1.73 sq M.predicted among non-blacks MDRD (S/P/Bld) [Vol rate/Area] 135 mL/min/{1.73_m2} Normal >60 [facility] Comment on above: Result Comment: Non- GFR Calc Performed By: #### L 500.2500, L100.0100 #### [facility] [address] [place], [address] Glucose [Mass/Vol] 97 mg/dL Normal 74-106 [facility] Comment on above: Result Comment: Christina almanza note revised GLUCOSE reference range effective 2017. Performed By: #### L 500.2500, L100.0100 #### [facility] [address] [place], [address] Potassium [Moles/Vol] 4.2 mmol/L Normal 3.5-5.1 [facility] Comment on above: Result Comment: Slig ht Hemolysis, Result may be falsely increased. Performed By: #### L 500.2500, L100.0100 #### [facility] [address] [place], [address] Sodium [Moles/Vol] 137 mmol/L Normal 136-145 [facility] Comment on above: Performed By: #### L 500.2500, L100.0100 #### [facility] [address] [place], [address] Urea nitrogen [Mass/Vol] 25 mg/dL High 7-18 [facility] Comment on above: Performed By: #### L 500.2500, L100.0100 #### [facility] [address] [place], [address] CBC W/Diff, Automatedon - Absolute Lymph 2.79 X10 3/uL Normal 0.83-4.51 [facility] Comment on above: Performed By: #### L 500.2500, L100.0100 #### [facility] [address] [place], [address] Absolute Neut 6.9 X10 3/uL Normal 2.0-7.7 [facility] Comment on above: Performed By: #### L 500.2500, L100.0100 #### [facility] [address] [place], [address] Basophils/100 WBC (Bld) 0.6 % Normal 0-1 [facility] Comment on above: Performed By: #### L 500.2500, L100.0100 #### [facility] [address] [place], [address] Eosinophils/100 WBC (Bld) 0.3 % Normal 0-5 [facility] Comment on above: Performed By: #### L 500.2500, L100.0100 #### [facility] [address] [place], [address] Erythrocyte distribution width (RBC) [Ratio] 14.6 % Normal 11.6-14.6 [facility] Comment on above: Performed By: #### L 500.2500, L100.0100 #### [facility] [address] [place], [address] Hematocrit (Bld) [Volume fraction] 46.3 % Normal 40-54 [facility] Comment on above: Performed By: #### L 500.2500, L100.0100 #### [facility] [address] [place], [address] Hemoglobin (Bld) [Mass/Vol] 15.3 g/dL Normal 13.0-16.5 [facility] Comment on above: Performed By: #### L 500.2500, L100.0100 #### [facility] [address] [place], [address] IG% 0.500 Normal 0.0-0.9 [facility] Comment on above: Result Comment: IG% - Immature Granulocytes (promyelocytes, myelocytes and metamyelocytes) > 1% indicates that a LEFT SHIFT is Present. Performed By: #### L 500.2500, L100.0100 #### [facility] [address] [place], [address] Lymphocytes/100 WBC (Bld) 25.6 % Normal 19-41 [facility] Comment on above: Performed By: #### L 500.2500, L100.0100 #### [facility] [address] [place], [address] MCH (RBC) [Entitic mass] 29.7 pg Normal 27.0-32.0 [facility] Comment on above: Performed By: #### L 500.2500, L100.0100 #### [facility] [address] [place], [address] MCHC (RBC) [Mass/Vol] 33.0 g/dL Normal 32-36 [facility] Comment on above: Performed By: #### L 500.2500, L100.0100 #### [facility] [address] [place], [address] MCV (RBC) [Entitic vol] 89.7 fL Normal 80-94 [facility] Comment on above: Performed By: #### L 500.2500, L100.0100 #### [facility] [address] [place], [address] Monocytes/100 WBC (Bld) 9.4 % Normal 0-10 [facility] Comment on above: Performed By: #### L 500.2500, L100.0100 #### [facility] [address] [place], [address] Neutrophils/100 WBC (Bld) 63.6 % Normal 47-70 [facility] Comment on above: Performed By: #### L 500.2500, L100.0100 #### [facility] [address] [place], [address] Nucleated RBC (Bld) [#/Vol] 0 10*3/uL Normal 0-5 [facility] Comment on above: Performed By: #### L 500.2500, L100.0100 #### [facility] [address] [place], [address] Platelet mean volume (Bld) [Entitic vol] 8.5 fL Normal 6.2-12.0 [facility] Comment on above: Performed By: #### L 500.2500, L100.0100 #### [facility] [address] [place], [address] Platelets (Bld) [#/Vol] 386 10*3/uL Normal 150-450 [facility] Comment on above: Performed By: #### L 500.2500, L100.0100 #### [facility] [address] [place], [address] RBC (Bld) [#/Vol] 5.16 10*6/uL Normal 4.6-6.2 [facility] Comment on above: Performed By: #### L 500.2500, L100.0100 #### [facility] [address] [place], [address] RDW SD 47.8 fl High 35.1-43.9 [facility] Comment on above: Performed By: #### L 500.2500, L100.0100 #### [facility] [address] [place], [address] WBC (Bld) [#/Vol] 10.9 10*3/uL Normal 4.4-11.0 [facility] Comment on above: Performed By: #### L 500.2500, L100.0100 #### [facility] [address] [place], [address] Alcohol, Blood (Medical)-Ser [facility] 12-01-2020 SERUM ETOH 241.0 mg/dL Normal [facility] Comment on above: Result Comment: The serum:whole blood ethanol ratio is approximately 1.14 and varies slightly with hematocrit. Medical Alcohol reference interval and critical value in non-tolerant individuals; 50 - 100 Impairment 100 Intoxication 100 - 250 Severe Poisoning 250 - 400 Deep/possible fatal coma Performed By: #### L 505.5000, L100.0100, L300.3900, L501.9100, L500.4050 ####[facility] [address] [place], [address] CBC W/Diff, Automatedon - PATH REV Reviewed Normal [facility] Comment on above: Performed By: #### L 505.5000, L100.0100, L300.3900, L501.9100, L500.4050 #### [facility] [address] [place], [address] CPK Total, Creatine Kinaseon 12-01-2020 CPK TOTAL 44 U/L Normal 39-308 [facility] Comment on above: Order Comment: ADDED TO ER BLOOD Performed By: #### L 501.3620, L501.5200 #### [facility] [address] [place], [address] Comprehensive Metabolic Prof ilon 12-01-2020 Albumin [Mass/Vol] 4.2 g/dL Normal 3.2-5.0 [facility] Comment on above: Performed By: #### L 505.5000, L100.0100, L300.3900, L501.9100, L500.4050 ####[facility] [address] [place], [address] Albumin/Globulin [Mass ratio] 1.0 {ratio} Normal 0.9-2.4 [facility] Comment on above: Performed By: #### L 505.5000, L100.0100, L300.3900, L501.9100, L500.4050 ####[facility] [address] [place], [address] ALK P 111 U/L Normal 45-117 [facility] Comment on above: Performed By: #### L 505.5000, L100.0100, L300.3900, L501.9100, L500.4050 ####[facility] [address] [place], [address] ALT [Catalytic activity/Vol] 49 U/L Normal 16-61 [facility] Comment on above: Performed By: #### L 505.5000, L100.0100, L300.3900, L501.9100, L500.4050 ####[facility] [address] [place], [address] AST [Catalytic activity/Vol] 19 U/L Normal 15-37 [facility] Comment on above: Performed By: #### L 505.5000, L100.0100, L300.3900, L501.9100, L500.4050 ####[facility] [address] [place], [address] Bilirubin [Mass/Vol] 0.40 mg/dL Normal 0.20-1.00 [facility] Comment on above: Result Comment: For patients on eltrombopag therapy, use of Dimension [place]ra TBIL is not recommended. Performed By: #### L 505.5000, L100.0100, L300.3900, L501.9100, L500.4050 ####[facility] [address] [place], [address] BUN/CRE 21.4 RATIO High 10-20 [facility] Comment on above: Performed By: #### L 505.5000, L100.0100, L300.3900, L501.9100, L500.4050 ####[facility] [address] [place], [address] CA,Total 9.3 mg/dL Normal 8.5-10.1 [facility] Comment on above: Performed By: #### L 505.5000, L100.0100, L300.3900, L501.9100, L500.4050 ####[facility] [address] [place], [address] Chloride [Moles/Vol] 104 mmol/L Normal 98-107 [facility] Comment on above: Performed By: #### L 505.5000, L100.0100, L300.3900, L501.9100, L500.4050 ####[facility] [address] [place], [address] CO2 [Moles/Vol] 25.0 mmol/L Normal 21.0-32.0 [facility] Comment on above: Performed By: #### L 505.5000, L100.0100, L300.3900, L501.9100, L500.4050 ####[facility] [address] [place], [address] Creatinine [Mass/Vol] 0.80 mg/dL Normal 0.70-1.30 [facility] Comment on above: Result Comment: The validity of the calculated GFR GFRAA in patients over 70 years has not been determined. Clinical correlation is essential. Performed By: #### L 505.5000, L100.0100, L300.3900, L501.9100, L500.4050 ####[facility] [address] [place], [address] ECRCL 127.26 ml/min Normal [facility] Comment on above: Performed By: #### L 505.5000, L100.0100, L300.3900, L501.9100, L500.4050 ####[facility] [address] [place], [address] EST GFR - AA 139 mL/min Normal >60 [facility] Comment on above: Result Comment: Afri can [place] GFR Calc Performed By: #### L 505.5000, L100.0100, L300.3900, L501.9100, L500.4050 ####[facility] [address] [place], [address] GAP 12 Normal 5-15 [facility] Comment on above: Performed By: #### L 505.5000, L100.0100, L300.3900, L501.9100, L500.4050 ####[facility] [address] [place], [address] GFR/1.73 sq M.predicted among non-blacks MDRD (S/P/Bld) [Vol rate/Area] 115 mL/min/{1.73_m2} Normal >60 [facility] Comment on above: Result Comment: Non- GFR Calc Performed By: #### L 505.5000, L100.0100, L300.3900, L501.9100, L500.4050 ####[facility] [address] [place], [address] Globulin (S) [Mass/Vol] 4.2 g/dL Normal 2.2-4.2 [facility] Comment on above: Performed By: #### L 505.5000, L100.0100, L300.3900, L501.9100, L500.4050 ####[facility] [address] [place], [address] Glucose [Mass/Vol] 128 mg/dL High 74-106 [facility] Comment on above: Result Comment: Fast ing Glucose result greater than or equal to 126 mg/dL suggests DIABETES MELLITUS per A.D.A. criteria. Please note revised GLUCOSE reference range effective 2017. Performed By: #### L 505.5000, L100.0100, L300.3900, L501.9100, L500.4050 ####[facility] [address] [place], [address] Potassium [Moles/Vol] 3.5 mmol/L Normal 3.5-5.1 [facility] Comment on above: Performed By: #### L 505.5000, L100.0100, L300.3900, L501.9100, L500.4050 ####[facility] [address] [place], [address] Sodium [Moles/Vol] 141 mmol/L Normal 136-145 [facility] Comment on above: Performed By: #### L 505.5000, L100.0100, L300.3900, L501.9100, L500.4050 ####[facility] [address] [place], [address] T PROT 8.4 g/dL High 6.4-8.2 [facility] Comment on above: Performed By: #### L 505.5000, L100.0100, L300.3900, L501.9100, L500.4050 ####[facility] [address] [place], [address] Urea nitrogen [Mass/Vol] 17 mg/dL Normal 7-18 [facility] Comment on above: Performed By: #### L 505.5000, L100.0100, L300.3900, L501.9100, L500.4050 ####[facility] [address] [facility] [place], [address] Emergency Department Summary on 12-01-2020 Emergency Department Summary [facility] Medical Records Department [address] [facility] [place] [address] Emergency Department Summary 11/30/20 MR#: [id number] Acct: [id number] Name: EL SMITH Rep #: [id number] : 1980 40 From: Monica Huff DO PCP: Care Physician,No Primary Status:ADM IN Location: [place] [address] HPI History of Present Illness Chief Complaint: Substance Abuse Informant: patient Narrative Narrative: 40-year-old male presents the emergency room asking for detox from alcohol. Patient states that he drinks at least 22 shots of fireball per day. He states that he has been drinking for years due to his sciatica. [facility]orted[facility] he was at [facility] recently where they did an MRI but he left the hospital without any paperwork. Mom states it was because he was high on Ativan. Patient states that he wants to quit drinking because it is not good for him. He also would like to have his sciatica addressed while he is in the hospital. He denies any fevers. He notes nausea and some vomiting. Last reported drink was this morning [facility] Medical History (Updated 11/30/20 @ 22:[address] Monica Huff DO) Sciatica Home Medications NK 11/30/20 [History Last Taken Unknown] Allergy/AdvReac Type Severity Reaction Status Date / Time No Known Allergies Allergy Verified 11/30/20 20:18 Social History (Updated 11/30/20 @ 22:[address] Monica Huff, DO) Smoking Status: Current every day smoker tobacco type: cigarettes substance use type: does not use ROS ROS ED Constitutional Constitutional ED: Denies chills or weight loss Eyes Eyes: Denies change in vision or diplopia ENT ENT ED: Denies ear pain, rhinorrhea or sore throat Cardiovascular Cardiovascular: Denies chest pain, orthopnea, palpitations or racing heartbeat Respiratory/Chest Respiratory/Chest: Denies cough, dyspnea or orthopnea Gastrointestinal Gastrointestinal: Reports nausea and vomiting; Denies abdominal pain or diarrhea Genitourinary Genitourinary ED: Denies dysuria, hematuria or urinary frequency Musculoskeletal Musculoskeletal: Reports back pain and other Details: Right leg pain ; Denies arthralgias or myalgias Integumentary Denies abscess or rash Neurologic Neurologic: Denies headache(s) or weakness Psychiatric Psychiatric: Denies anxiety, depression, suicidal ideation or suicidal thoughts Endocrine Endocrinology: Denies polydipsia, polyphagia or polyuria Allergic/Immunologic Allergic/Immunologic ED: Denies mouth swelling, tongue swelling or urticaria EXAM Physical Exam Narrative Exam Narrative: Patient states that he is in pain he is rocking back and forth holding his right lower leg at times he will bring the leg up over his left leg almost into a piriformis stretch. Const Vital Signs: 11/30/20 20:16 11/30/20 21:24 Temperature 98.3 F 98.8 F Temperature Source Temporal Temporal Pulse Rate 126 H 103 H Respiratory Rate 20 H 20 H Blood Pressure 187/80 H 162/107 H Blood Pressure Mean 115 125 Blood Pressure Source Monitor Blood Pressure Position Sitting Blood Pressure Location Right Arm Pulse Ox 96 98 Oxygen Delivery Method Room Air Room Air Positive well nourished and well developed General Appearance ED: well developed HEENT Reports normocephalic, head/scalp atraumatic and moist mucous membranes Eyes PERRL and EOMs intact bilaterally Neck no lymphadenopathy, supple and no JVD Resp normal respiratory effort and clear to auscultation bilaterally Cardio regular rate and no murmurs Rate: tachycardic GI normal to inspection, nondistended, normoactive bowel sounds and non-tender Palpation: soft Back/Spine no CVA tenderness and normal ROM Extremity normal to inspection General Extremety ED: Negative for edema General Extremity: Negative for edema Neuro oriented x3 and CN's II-XII intact bilaterally Sensorium / Orientation: alert Motor Exam: strength 5/5 throughout Psych Attitude: agitated Mood Affect: Negative for depressed or tearful Skin no rashes or lesions noted and no wounds MDM MDM MDM Narrative Medical decision making narrative: Patient's blood alcohol level is 241. White count elevated at 19 but he does not seem to have any infectious symptoms so probably due to withdrawal and reviewed his pain. Patient received a dose of Toradol and Valium. He is also had vomiting so I gave him some Zofran. He is agreeable to the rules of the program. I will speak with her hospitalist. Lab Data Attestation: I reviewed the patient's lab results. Labs: Laboratory Results - last 24 hr 11/30/20 11/30/20 11/30/20 21:17 21:17 21:17 WBC 19.1 H RBC 6.20 Hgb 18.4 H* Hct 54.9 H MCV 88.5 MCH 29.7 MCHC 33.5 RDW Std Deviation 49.6 H RDW Co (more content not included)... Normal [facility] H AND P Exam - [facility] 12-01-2020 H&P Exam - Hospitalist [facility] Medical Records Department [address] [place] [address] H P Exam - Hospitalist 11/30/20 2251 MR#: [id number] Acct: [id number] Name: EL SMITH Rep #: [id number] : 1980 40 From: Evan Elizondo MD PCP: Care Physician,No Primary Status:ADM IN Location: [facility] [id number] HPI - General General Date of Admission: 11/30/20 HPI Narrative EL SMITH, is a 40 M who is brought to ER for acute alcohol withdrawal symptoms. Patient is having tremors. He also vomited large amount in ER. Patient drinks 22 shots of fireball, whiskey every single day. Patient also takes hydrocodone 4 tablets daily for sciatica pain. He has chronic lumbar back pain with radiation to right lower extremity to fifth toe. No fever or chills. He was recently at [facility]. They did an MRI but he left the hospital without paperwork. Patient has been drinking heavily since teenage. Denies seizure, hallucinations or delusion. [facility] Medical History Alcohol abuse Anxiety Chronic pain Depression Hypertension Sciatica Smoker Substance abuse Home Medications NK 11/30/20 [History Last Taken Unknown] Allergy/AdvReac Type Severity Reaction Status Date / Time No Known Allergies Allergy Verified 11/30/20 20:18 Social History Smoking Status: Current every day smoker tobacco type: cigarettes substance use type: does not use ROS ROS Narrative Constitutional: Complain of back pain. HEENT: Reports systems reviewed and no addt'l complaints, except as documented Respiratory/Chest: Denies chest pain, shortness of breath at rest or with exertion Gastrointestinal: Vomiting nonbilious in nature. Denies coffee ground emesis, hematemesis or melena Genitourinary: Denies burning urination or new urinary tract symptoms Musculoskeletal: Back pain with radiation to RLE. Reports joint pain at lumbar spine and limited range of motion Neurologic: Denies seizure-like activity skin: No ulcer. No rash Endocrinology: Reports systems reviewed and no addt'l complaints, except as documented Hematologic/Lymphatic : Reports systems reviewed and no addt'l complaints, except as documented Rest 12 ROS are negative except as mentioned in HPI Vital Signs Vital Signs Vital Signs: 11/30/20 20:16 11/30/20 21:24 Temperature 98.3 F 98.8 F Temperature Source Temporal Temporal Pulse Rate 126 H 103 H Respiratory Rate 20 H 20 H Blood Pressure 187/80 H 162/107 H Blood Pressure Mean 115 125 Blood Pressure Source Monitor Blood Pressure Position Sitting Blood Pressure Location Right Arm Pulse Ox 96 98 Oxygen Delivery Method Room Air Room Air Weight Weight: 160 lb Body Mass Index (BMI) 22.9 Physical Exam Narrative General: Restless, oriented. Tremors. Irritable HEENT: Atraumatic, PERRLA, EOMI, Normocephalic Oral: No Gingival or Mucosal Lesions/ Ulcerations Neck: Supple, No JVD, Negative Carotid Bruits Lungs: Air entry equal in bilateral lung bases. No crepitation/rhonchi Cardiovascular: Regular rate, Regular Rhythm, Normal S1, Normal S2, No murmurs Abdomen: Bowel Sounds Present, Soft, Non Tender, Non-Distended : No renal angle tenderness. No suprapubic tenderness. Extremities/spine: Tenderness present over right paralumbar area. No edema, Capillary Refill Less than 3 Seconds Skin: No rashes, No breakdown Musculoskeletal: No Tenderness to Palpation of Joints or Extremities Neurological: Cranial nerves II-XII grossly intact, DTR 2+/4 and Symmetrical, Neuro grossly intact Psych/Mental Status: Normal Affect, Appropriate. Results Lab / Micro Data Result Diagrams: 11/30/20 21:17 11/30/20 21:17 Labs: Laboratory Results - last 24 hr 11/30/20 21:17: WBC 19.1 H, RBC 6.20, Hgb 18.4 H*, Hct 54.9 H, MCV 88.5, MCH 29.7, MCHC 33.5, RDW Std Deviation 49.6 H, RDW Coeff of Mehran 15.5 H, Plt Count 568 H, MPV 8.5, Immature Gran % (Auto) 0.600, Neut % (Auto) 70.7 H, Lymph % (Auto) 20.0, [place] % (Auto) 8.3, Eos % (Auto) 0.1, Baso % (Auto) 0.3, Absolute Neuts (auto) 13.5 H, Absolute Lymphs (auto) 3.81, Nucleated RBC % 0, Differential Co mment SCANNED, Diff Path Review August11/30/20 21:17: PT 11.6 L, INR 0.9 11/30/20 21:17: Sodium 141, Potassium 3.5, Chloride 104, Carbon Dioxide 25.0, Anion Gap 12, BUN 17, Creatinine 0.80, Estim Creat Clear Calc 127.26, Est GFR (MDRD) Af Amer 139, Est GFR (MDRD) Non-Af 115, BUN/Creatinine Ratio 21.4 H, Glucose 128 H, Calcium 9.3, Total Bilirubin 0.40, AST 19, ALT 49, Alkaline Phosphatase 111, Total Protein 8.4 H, Albumin 4.2, Globulin 4.2, Albumin/Globulin Ratio 1.0 11/30/20 21:17: Ethyl Alcohol 241.0 11/30/20 21:17: Urine Opiates Screen POSITIVE H, Urine Methadone Screen NEGATIVE, Ur Barbiturates Screen NEGAT (more content not included)... Normal [facility] Magnesiumon 12-01-2020 Magnesium [Mass/Vol] 2.0 mg/dL Normal 1.6-2.6 [facility] Comment on above: Order Comment: ADDED TO ER BLOOD Performed By: #### L 501.3620, L501.5200 #### [facility] [address] [place], [address] Prothrombin Time w/INRon INR Coag (PPP) [Relative time] 0.9 {INR} Normal [facility] Comment on above: Performed By: #### L 505.5000, L100.0100, L300.3900, L501.9100, L500.4050 #### [facility] [address] [place], [address] PT Coag (PPP) [Time] 11.6 s Low 11.7-14.9 [facility] Comment on above: Performed By: #### L 505.5000, L100.0100, L300.3900, L501.9100, L500.4050 #### [facility] [address] [place], [address] Urine Drug Screen (VISTA)on 11-30-2020 AMPHETAMINES Negative Normal <1000 ng/mL [facility] Comment on above: Performed By: #### L 505.5000, L100.0100, L300.3900, L501.9100, L500.4050 #### [facility] [address] [place], [address] BARBITIURATES Negative Normal < 200 ng/mL [facility] Comment on above: Performed By: #### L 505.5000, L100.0100, L300.3900, L501.9100, L500.4050 #### [facility] [address] [place], [address] BENZODIAZIPINE Negative Normal < 200 ng/mL [facility] Comment on above: Performed By: #### L 505.5000, L100.0100, L300.3900, L501.9100, L500.4050 #### [facility] [address] [place], [address] COCAINE Negative Normal < 300 ng/mL [facility] Comment on above: Performed By: #### L 505.5000, L100.0100, L300.3900, L501.9100, L500.4050 #### [facility] [address] [place], [address] ECSTACY Negative Normal < 500 ng/mL [facility] Comment on above: Performed By: #### L 505.5000, L100.0100, L300.3900, L501.9100, L500.4050 #### [facility] [address] [place], [place], [facility] METHADONE Negative Normal < 300 ng/mL [facility] Comment on above: Performed By: #### L 505.5000, L100.0100, L300.3900, L501.9100, L500.4050 #### [facility] [address] [place], [address] OPIATES Positive Abnormal < 300 ng/mL [facility] Comment on above: Performed By: #### L 505.5000, L100.0100, L300.3900, L501.9100, L500.4050 #### [facility] [address] [place], [address] PCP Negative Normal < 25 ng/mL [facility] Comment on above: Performed By: #### L 505.5000, L100.0100, L300.3900, L501.9100, L500.4050 #### [facility] [address] [place], [address] THC Positive Abnormal < 50 ng/mL [facility] Comment on above: Performed By: #### L 505.5000, L100.0100, L300.3900, L501.9100, L500.4050 #### [facility] [address] [place], [address] VISTA UDS PH 5 Normal [facility] Comment on above: Performed By: #### L 505.5000, L100.0100, L300.3900, L501.9100, L500.4050 #### [facility] [address] [place], [address] ED Provider Noteon ED Provider Note Emergency Department Encounter [facility] EMERGENCY DEPT Patient: El Smith : 1980 Date of Evaluation: 11/25/2020 ED Provider: Ramesh Grimaldo MD Chief Complaint Chief Complaint Patient presents with ? Back Pain Lower right sided back pain radiating down right leg x 3 days. No OTC medications for pain. [place] I wore appropriate PPE for the entirety of this encounter. Does this patient come from an ECF, SNF, Rehab, Fpc or other Congregate setting: no (If yes to above patient needs a Covid-19 test) El Smith is a 40 y.o. male who presents to the emergency department complaining of right buttock pain going down the right leg, denies any trauma. He has had a history of back issues in the past but says is gotten worse over the past 3 days. Patient denies any loss of bladder or bowel control, saddle anesthesia, radicular symptoms, history of IV drug abuse, or fevers. Patient denies any pain in the midline and says that the pain is exacerbated by movement and is located in the paraspinal musculature. ROS: 14 systems reviewed and otherwise acutely negative except as in the [place]. Past History Past Medical History: Diagnosis Date ? Anxiety ? Chronic back pain ? Chronic pain ? Degenerative disc disease, lumbar ? Depression ? Gastrointestinal complaints ? Hypertension ? Spinal stenosis, lumbar Past Surgical History: Procedure Laterality Date ? ARM SURGERY metal rods in adam upper extremities ? COLONOSCOPY ? FRACTURE SURGERY Social History Socioeconomic History ? Marital status: Single Spouse name: None ? Number of children: None ? Years of education: None ? Highest education level: None Occupational History ? None Tobacco Use ? Smoking status: Current Every Day Smoker Packs/day: 2.00 Years: 20.00 Pack years: 40.00 Types: Cigarettes ? Smokeless tobacco: Current User Vaping Use ? Vaping Use: Never used Substance and Sexual Activity ? Alcohol use: Yes Alcohol/week: 6.0 standard drinks Types: 6 Cans of beer per week Comment: 20 shots of fireball daily, to kill pain ? Drug use: Yes Types: Marijuana Comment: occasional use ? Sexual activity: Not Currently Other Topics Concern ? None Social History Narrative ? None Social Determinants of Health Financial Resource Strain: ? Difficulty of Paying Living Expenses: Food Insecurity: ? Worried About Running Out of Food in the Last Year: ? Ran Out of Food in the Last Year: Transportation Needs: ? Lack of Transportation (Medical): ? Lack of Transportation (Non-Medical): Physical Activity: ? Days of Exercise per Week: ? Minutes of Exercise per Session: Stress: ? Feeling of Stress : Social Connections: ? Frequency of Communication with Friends and Family: ? Frequency of Social Gatherings with Friends and Family: ? Attends Confucianist Services: ? Active Member of Clubs or Organizations: ? Attends Club or Organization Meetings: ? Marital Status: Intimate Partner Violence: ? Fear of Current or Ex-Partner: ? Emotionally Abused: ? Physically Abused: ? Sexually Abused: Medications/Allergies Previous Medications CELECOXIB (CELEBREX) 200 MG CAPSULE Take 1 capsule by mouth 2 times daily LOSARTAN-HYDROCHLOROT HIAZIDE (HYZAAR) 50-12.5 MG PER TABLET Take 1 tablet by mouth daily PANTOPRAZOLE (PROTONIX) 40 MG TABLET Take 1 tablet by mouth every morning (before breakfast) Allergies Allergen Reactions ? Nsaids Physical Exam ED Triage Vitals BP Temp Temp Source Pulse Resp SpO2 Height Weight 11/25/20194411/25/20194111/25/20194111/25/20194111/25/20194111/25/20194111/25/20194111/25/201941 (!) 175/119 97 ?F (36.1 ?C) Tympanic 99 20 98 % 5' 10 (1.778 m) 216 lb (98 kg) GENERAL: The patient appears nourished and normally developed. Vital signs as documented. EYES: Head exam is unremarkable. No scleral icterus or orbital trauma noted. HEENT: Mucous membranes moist. Nares patent without copious rhinorrhea. No enlarged lymphadenopathy. LUNGS: Lungs are clear to auscultation, without any respiratory distress. CARDIAC: Rhythm is regular. No dysrythmias or murmurs. Back: No midline tenderness palpation, some tenderness over the right buttock piriformis musculature ABDOMEN: Nontender with no obvious masses, and no peritoneal signs. EXTREMITIES: Non edematous, with no obvious deformities. SKIN: Good color, with no significant rashes. No pallor. NEURO: No obvious neurological deficits, normal sensation and strength bilaterally. Diagnostics Labs: No results found for this visit on 11/25/20. Radiographs: No results found. Procedures/EKG: None SCREENINGS ED Course and MDM In brief, El Smith is a 40 y.o. male who presented to the emergency department with piriformis syndrome the right lower extremity, will treat with pain control and muscle relaxant, follow-up sports medicine, patient (more content not included)... Normal [facility] [employer] [facility] CBCon 07-05-2020 Erythrocyte distribution width (RBC) [Ratio] 16.0 % High 11.5 - 14.5 % [facility]TR Phone: [phone] Hematocrit (Bld) [Volume fraction] 46.1 % 40.0 - 52.0 % [facility]TR Phone: [phone] Hemoglobin (Bld) [Mass/Vol] 15.4 g/dL 13.0 - 18.0 g/dL [facility]TR Phone: [phone] Interpretation and review of laboratory results Abnormal [facility]TR Phone: [phone] MCH (RBC) [Entitic mass] 30.5 pg 26.0 - 34.0 pg [facility]TR Phone: [phone] MCHC (RBC) [Mass/Vol] 33.4 % 32.0 - 36.0 % [facility]TR Phone: [phone] MCV (RBC) [Entitic vol] 91.1 fL 80.0 - 98.0 fL [facility]TR Phone: [phone] Platelet mean volume (Bld) [Entitic vol] 7.5 fL 7.4 - 10.4 fL [facility] Work Phone: 1 Platelets (Bld) [#/Vol] 464 10*3/uL High 140 - 440 10*3/uL [facility] Work Phone: 1 RBC (Bld) [#/Vol] 5.05 10*6/uL 4.40 - 5.9 0 10*6/uL [facility] Work Phone: 1 WBC (Bld) [#/Vol] 13.6 10*3/uL High 3.6 - 10.7 10*3/uL [facility] Work Phone: 1 Test Performed by [employer] [facility], [facility] [address] [place], [place] [address] [employer] Work Phone: Comprehensive Metabolic Pane eduardo 07-05-2020 Albumin [Mass/Vol] 4.2 g/dL 3.5 - 5.0 g/dL [facility] Work Phone: 1 ALP [Catalytic activity/Vol] 91 U/L 38 - 126 U/L [facility] Work Phone: ALT [Catalytic activity/Vol] 33 U/L 0 - 49 U/L [employer] Work Phone: Comment on above: The ALT test is perf ormed by an updated assay method. Please note that the reference intervals have been changed and are now sex specific. Anion gap [Moles/Vol] 13 mmol/L 3 - 13 mmol/L [employer] Work Phone: 1 AST [Catalytic activity/Vol] 46 U/L 15 - 46 U/L [facility] Work Phone: Bilirubin Ql (U) 1.2 mg/dL 0.2 - 1.3 mg/dL [employer] Work Phone: Calcium [Mass/Vol] 9.4 mg/dL 8.4 - 10. 4 mg/dL [employer] Work Phone: Chloride [Moles/Vol] 105 mmol/L 98 - 10 7 mmol/L [facility] Work Phone: CO2 [Moles/Vol] 19 mmol/L Low 22 - 30 mmol/L [facility] Work Phone: [phone] Creatinine [Mass/Vol] 0.92 mg/dL 0.52 - 1.25 mg/dL [facility] Work Phone: [phone] EGFR IF NonAfrican Venezuelan >90.0 >60 mL/min [facility] Work Phone: [phone] Comment on above: KDIGO guidelines pro vide the following GFR categories: Stage GFR(ml/min/1.73 m2) Terms G1 >=90 Normal or high G2 60-89 Mildly decreased* G3a 45-59 Mildly to moderately decreased G3b 30-44 Moderately to severely decreased G4 15-29 Severely decreased G5 <15 Kidney failure *Relative to young adult level. In the absence of evidence of kidney damage, neither GFR category G1 nor G2 fulfill the criteria for CKD. The CKD-EPI equation is validated in individuals 18 years of age and older. Currently the best equation for estimating glomerular filtration rate (GFR) from serum creatinine in children is the Bedside Finch equation. It is less accurate in patients with extremes of muscle mass, restriction of dietary protein, ingestion of creatine, extra-renal metabolism of creatinine, or treatment with medications that affect renal tubular creatinine secretion. GFR/1.73 sq M predicted among blacks MDRD (S/P/Bld) [Vol rate/Area] mL/min/{1.73_m2} >60 mL/min [facility] Work Phone: [phone] Glucose [Mass/Vol] 126 mg/dL High 70 - 100 mg/dL [facility] Work Phone: [phone] Interpretation and review of laboratory results Abnormal [facility] Work Phone: [phone] Potassium [Moles/Vol] 4.3 mmol/L 3.5 - 5.1 mmol/L [facility] Work Phone: [phone] Protein [Mass/Vol] 7.3 g/dL 6.3 - 8.2 g/dL [facility] Work Phone: [phone] Sodium [Moles/Vol] 137 mmol/L 135 - 145 mmol/L [facility] Work Phone: [phone] Urea nitrogen [Mass/Vol] 24 mg/dL High 7 - 20 mg/dL [facility] Work Phone: [phone] Ethanolon 07-05-2020 Ethanol Lvl <0.010 0.000 - 0.010 g/dL [employer] Work Phone: Comment on above: NOTE: This result is for medical treatment only. Analysis performed using non-forensic procedures. Otheron 07-05-2020 Test Performed by [facility], [address] [place] [address] [employer] Work Phone: Basic Metabolic Panel w/ Ref jojo to MGon 07-04-2020 Anion gap [Moles/Vol] 13 mmol/L 3 - 13 mmol/L [employer] Work Phone: Calcium [Mass/Vol] 9.3 mg/dL 8.4 - 10. 4 mg/dL [employer] Work Phone: Chloride [Moles/Vol] 98 mmol/L 98 - 10 7 mmol/L [employer] Work Phone: CO2 [Moles/Vol] 22 mmol/L 22 - 30 mmol/L [employer] Work Phone: Creatinine [Mass/Vol] 0.7 mg/dL 0.52 - 1.25 mg/dL [employer] Work Phone: EGFR IF NonAfrican Venezuelan >90.0 >60 mL/min [employer] Work Phone: Comment on above: KDIGO guidelines pro vide the following GFR categories: Stage GFR(ml/min/1.73 m2) Terms G1 >=90 Normal or high G2 60-89 Mildly decreased* G3a 45-59 Mildly to moderately decreased G3b 30-44 Moderately to severely decreased G4 15-29 Severely decreased G5 <15 Kidney failure *Relative to young adult level. In the absence of evidence of kidney damage, neither GFR category G1 nor G2 fulfill the criteria for CKD. The CKD-EPI equation is validated in individuals 18 years of age and older. Currently the best equation for estimating glomerular filtration rate (GFR) from serum creatinine in children is the Bedside Finch equation. It is less accurate in patients with extremes of muscle mass, restriction of dietary protein, ingestion of creatine, extra-renal metabolism of creatinine, or treatment with medications that affect renal tubular creatinine secretion. GFR/1.73 sq M predicted among blacks MDRD (S/P/Bld) [Vol rate/Area] mL/min/{1.73_m2} >60 mL/min [facility] Work Phone: [phone] Glucose [Mass/Vol] 103 mg/dL High 70 - 100 mg/dL [facility] Work Phone: [phone] Interpretation and review of laboratory results Abnormal [facility] Work Phone: [phone] Potassium [Moles/Vol] 3.8 mmol/L 3.5 - 5.1 mmol/L [facility] Work Phone: [phone] Sodium [Moles/Vol] 133 mmol/L Low 135 - 145 mmol/L [facility] Work Phone: [phone] Urea nitrogen [Mass/Vol] 16 mg/dL 7 - 20 mg/dL [facility] Work Phone: [phone] C-Reactive Proteinon 021 CRP [Mass/Vol] mg/L 0.0 - 6.0 mg/L [facility] Work Phone: [phone] Comment on above: . CBCon 07-04-2020 Erythrocyte distribution width (RBC) [Ratio] 16.1 % High 11.5 - 14.5 % [facility] Work Phone: [phone] Hematocrit (Bld) [Volume fraction] 46.4 % 40.0 - 52.0 % [facility] Work Phone: [phone] Hemoglobin (Bld) [Mass/Vol] 16.0 g/dL 13.0 - 18.0 g/dL [facility] Work Phone: [phone] Interpretation and review of laboratory results Abnormal [facility] Work Phone: [phone] MCH (RBC) [Entitic mass] 31.1 pg 26.0 - 34.0 pg [facility] Work Phone: [phone] MCHC (RBC) [Mass/Vol] 34.6 % 32.0 - 36.0 % [facility] Work Phone: [phone] MCV (RBC) [Entitic vol] 89.9 fL 80.0 - 98.0 fL [facility] Work Phone: [phone] Platelet mean volume (Bld) [Entitic vol] 7.1 fL Low 7.4 - 10.4 fL [facility] Work Phone: [phone] Platelets (Bld) [#/Vol] 461 10*3/uL High 140 - 440 10*3/uL [employer] Work Phone: [phone] RBC (Bld) [#/Vol] 5.16 10*6/uL 4.40 - 5.9 0 10*6/uL [employer] Work Phone: [phone] WBC (Bld) [#/Vol] 10.0 10*3/uL 3.6 - 10.7 10*3/uL [employer] Work Phone: [phone] Test Performed by [facility], [address] [place], [place] [address] [employer] Work Phone: [phone] MRI LUMBAR SPINE WO CONTRAST on 07-04-2020 Oskar, Univa UD Incoming Radiology Results From [facility] - 07/04/2020 3:04 PM EDT Patient Name: EL SMITH [facility] ACCESSION EXAM DATE/TIME PROCEDURE ORDERING PROVIDER [id number] 07/04/2020 14:52 EDT MRI Spine Lumbar w/o 5640 -AILYN, MONICA Contrast CPT code 60422 Reason For Exam (MRI Spine Lumbar w/o Contrast) low back pain, radiating down right leg Report Examination: MRI lumbar spine Indication: low back pain, radiating down right leg Technique: Multiplanar multi-sequence MRI images of the lumbar spine were obtained. Findings: The lumbar vertebral bodies are in gross anatomic alignment. Mild disc space loss is present at L5/S1. There is no acute fracture. There are no focal marrow replacing lesions. The conus medullaris is not covered on this study. The midportion of the T12 vertebral body is the superior extent of the field of view. The paraspinal musculature is grossly unremarkable. At the L1/L2 level, the central canal and foramina are patent. At the L2/L3 level, the central canal and foramina are patent. At the L3/L4 level, minimal diffuse posterior disc bulging is present. The central canal foramina are patent. At the L4/L5 level, circumferential disc bulging with small osteophytes are noted. There is slight encroachment on the lateral recesses. Mild degenerative facet changes are present. There is mild narrowing of the central canal. Minimal left and no significant right-sided foraminal narrowing is noted. At the L5/S1 level, broad-based posterior disc osteophyte complex is present with superimposed right paracentral disc herniation. There is narrowing of the right lateral recess with mass effect on the right S1 nerve root. Mild to moderate narrowing of the central canal is present towards the right. Mild bilateral foraminal narrowing is noted. Impression: Circumferential disc bulging with right paracentral disc herniation at L5/S1 causes mass effect on the right S1 nerve root. Small (1.1 m) cystic lesion within the upper portion of the right kidney. There is minimal mural thickening or small amount of hemorrhage dependently within the Magnetic Resonance Imaging Report lesion. Follow-up recommended to document stability. Report Dictated on --- Final --- Dictating Physician: MD HANSEN KRIKOR Signed Date and Time: 07/04/2020 3:02 pm Signed by: MD HANSEN KRIKOR Transcribed Date and Time: 07/04/2020 3:03 [facility] Work Phone: Patient Name: EL SMITH [facility] ACCESSION EXAM DATE/TIME PROCEDURE ORDERING PROVIDER [id number] 07/04/2020 14:52 EDT MRI Spine Lumbar w/o 5640 -AILYNMONICA Cruz Contrast CPT code 57577 Reason For Exam (MRI Spine Lumbar w/o Contrast) low back pain, radiating down right leg Report Examination: MRI lumbar spine Indication: low back pain, radiating down right leg Technique: Multiplanar multi-sequence MRI images of the lumbar spine were obtained. Findings: The lumbar vertebral bodies are in gross anatomic alignment. Mild disc space loss is present at L5/S1. There is no acute fracture. There are no focal marrow replacing lesions. The conus medullaris is not covered on this study. The midportion of the T12 vertebral body is the superior extent of the field of view. The paraspinal musculature is grossly unremarkable. At the L1/L2 level, the central canal and foramina are patent. At the L2/L3 level, the central canal and foramina are patent. At the L3/L4 level, minimal diffuse posterior disc bulging is present. The central canal foramina are patent. At the L4/L5 level, circumferential disc bulging with small osteophytes are noted. There is slight encroachment on the lateral recesses. Mild degenerative facet changes are present. There is mild narrowing of the central canal. Minimal left and no significant right-sided foraminal narrowing is noted. At the L5/S1 level, broad-based posterior disc osteophyte complex is present with superimposed right paracentral disc herniation. There is narrowing of the right lateral recess with mass effect on the right S1 nerve root. Mild to moderate narrowing of the central canal is present towards the right. Mild bilateral foraminal narrowing is noted. Impression: Circumferential disc bulging with right paracentral disc herniation at L5/S1 causes mass effect on the right S1 nerve root. Small (1.1 m) cystic lesion within the upper portion of the right kidney. There is minimal mural thickening or small amount of hemorrhage dependently within the Magnetic Resonance Imaging Report lesion. Follow-up recommended to document stability. Report Dictated on --- Final --- Dictating Physician: MD HANSEN KRIKOR Signed Date and Time: 07/04/2020 3:02 pm Signed by: MD HANSEN KRIKOR Transcribed Date and Time: 07/04/2020 3:03 [employer] Work Phone: Otheron 07-04-2020 Test Performed by [employer] [facility], [address] [facility]. [place] [address] [employer] Work Phone: Basic Metabolic Panelon 06-16 Anion gap [Moles/Vol] 13 mmol/L 3 - 13 mmol/L [employer] Work Phone: Calcium [Mass/Vol] 9.1 mg/dL 8.4 - 10. 4 mg/dL [employer] Work Phone: Chloride [Moles/Vol] 105 mmol/L 98 - 10 7 mmol/L [employer] Work Phone: CO2 [Moles/Vol] 24 mmol/L 22 - 30 mmol/L [facility] Work Phone: [phone] Creatinine [Mass/Vol] 0.8 mg/dL 0.52 - 1.25 mg/dL [facility] Work Phone: [phone] EGFR IF NonAfrican Venezuelan >90.0 >60 mL/min [facility] Work Phone: Comment on above: KDIGO guidelines pro vide the following GFR categories: Stage GFR(ml/min/1.73 m2) Terms G1 >=90 Normal or high G2 60-89 Mildly decreased* G3a 45-59 Mildly to moderately decreased G3b 30-44 Moderately to severely decreased G4 15-29 Severely decreased G5 <15 Kidney failure *Relative to young adult level. In the absence of evidence of kidney damage, neither GFR category G1 nor G2 fulfill the criteria for CKD. The CKD-EPI equation is validated in individuals 18 years of age and older. Currently the best equation for estimating glomerular filtration rate (GFR) from serum creatinine in children is the Bedside Finch equation. It is less accurate in patients with extremes of muscle mass, restriction of dietary protein, ingestion of creatine, extra-renal metabolism of creatinine, or treatment with medications that affect renal tubular creatinine secretion. GFR/1.73 sq M predicted among blacks MDRD (S/P/Bld) [Vol rate/Area] mL/min/{1.73_m2} >60 mL/min [facility] Work Phone: [phone] Glucose [Mass/Vol] 122 mg/dL High 70 - 100 mg/dL [facility] Work Phone: [phone] Potassium [Moles/Vol] 4.1 mmol/L 3.5 - 5.1 mmol/L [facility] Work Phone: [phone] Sodium [Moles/Vol] 143 mmol/L 135 - 145 mmol/L [facility] Work Phone: [phone] Urea nitrogen [Mass/Vol] 14 mg/dL 7 - 20 mg/dL [facility] Work Phone: [phone] CKon 07-03-2020 Total CK 78 U/L 30 - 170 U/L [facility] Work Phone: [phone] COVID-19on 07-03-2020 SARS-CoV-2 Not Detected. Not Detected [facility] Work Phone: Comment on above: Not Detected. Expected Result: Not Detected _ Real-time, RT-PCR performed on the [facility] [employer] System by the [employer] Microbiology Service. Negative results do not preclude SARS-CoV-2 infection and should not be used as the sole basis for treatment or other patient management decisions. This assay was developed by [facility] and distributed under an Emergency Use Authorization (EUA) granted by the FDA for the qualitative detection of SARS-CoV-2 nucleic acid. Test Performed by [facility], [address] [place] [id number] COVID-19, Rapidon 07-03-2020 Sodium [Moles/Vol] see below [employer] Work Phone: Comment on above: Not Detected Expected Result: Not Detected _ Isothermal nucleic acid amplification performed on the [employer] System by the [employer] [facility] Laboratory Negative results do not preclude SARS-CoV-2 infection and should not be used as the sole basis for treatment or other patient management decisions. This assay was developed by [employer] and distributed under an Emergency Use Authorization (EUA) granted by the FDA for the qualitative detection of SARS-CoV-2 nucleic acid. Provider and patient fact sheets can be found at https://www.fda.gov/media/884261/download and https://www.fda.gov/media/082784/download. Test Performed by [facility], [address] [facility] , [place], [place] [address] [employer] Work Phone: Ethanolon 07-03-2020 Ethanol Lvl 0.299 g/dL High 0.000 - 0.010 g/dL [employer] Work Phone: Comment on above: NOTE: This result is for medical treatment only. Analysis performed using non-forensic procedures. Hemogram (CBC) w/Auto Diffon 07-03-2020 Absolute Baso # 0.1 10*3/uL 0.0 - 0.2 10*3/uL [facility] Work Phone: Absolute Neut # 7.0 10*3/uL 1.8 - 7.0 10*3/uL [employer] Work Phone: [phone] Basophils/100 WBC (Bld) 0.6 % 0.0 - 2.0 % [facility] Work Phone: 1 Eosinophils (Bld) [#/Vol] 0.0 10*3/uL 0.0 - 0.5 10*3/uL [facility] Work Phone: [phone] Eosinophils/100 WBC (Bld) 0.3 % Low 1.0 - 6.0 % [facility] Work Phone: Erythrocyte distribution width (RBC) [Ratio] 16.4 % High 11.5 - 14.5 % [facility] Work Phone: 22 Granulocytes/100 WBC (Bld) 60.0 % 40.0 - 80.0 % [facility] Work Phone: Hematocrit (Bld) [Volume fraction] 51.0 % 40.0 - 52.0 % [facility] Work Phone: Hemoglobin (Bld) [Mass/Vol] 17.4 g/dL 13.0 - 18.0 g/dL [facility] Work Phone: Interpretation and review of laboratory results Abnormal [facility] Work Phone: Lymphocytes (Bld) [#/Vol] 3.8 10*3/uL 1.0 - 4.3 10*3/uL [facility] Work Phone: Lymphocytes/100 WBC (Bld) 32.5 % 20.0 - 40.0 % [facility] Work Phone: MCH (RBC) [Entitic mass] 30.6 pg 26.0 - 34.0 pg [facility] Work Phone: MCHC (RBC) [Mass/Vol] 34.2 % 32.0 - 36.0 % [facility] Work Phone: MCV (RBC) [Entitic vol] 89.6 fL 80.0 - 98.0 fL [facility] Work Phone: Monocytes (Bld) [#/Vol] 0.8 10*3/uL 0.0 - 0.8 10*3/uL [facility] Work Phone: 22 Monocytes/100 WBC (Bld) 6.6 % 2.0 - 10.0 % [facility] Work Phone: Platelet mean volume (Bld) [Entitic vol] 7.1 fL Low 7.4 - 10.4 fL [employer] Work Phone: Platelets (Bld) [#/Vol] 619 10*3/uL High 140 - 440 10*3/uL [facility] Work Phone: RBC (Bld) [#/Vol] 5.69 10*6/uL 4.40 - 5.9 0 10*6/uL [facility] Work Phone: WBC (Bld) [#/Vol] 11.6 10*3/uL High 3.6 - 10.7 10*3/uL [facility] Work Phone: Test Performed by [employer] [facility], [facility] [address] , [place] [id number] [employer] Work Phone: Hepatic Function Panelon Albumin [Mass/Vol] 4.8 g/dL 3.5 - 5.0 g/dL [facility] Work Phone: ALP [Catalytic activity/Vol] 108 U/L 38 - 126 U/L [facility] Work Phone: ALT [Catalytic activity/Vol] 45 U/L 0 - 49 U/L [facility] Work Phone: Comment on above: The ALT test is perf ormed by an updated assay method. Please note that the reference intervals have been changed and are now sex specific. AST [Catalytic activity/Vol] 60 U/L High 15 - 46 U/L [facility] Work Phone: Bilirubin Ql (U) 0.8 mg/dL 0.2 - 1.3 mg/dL [facility] Work Phone: Bilirubin.direct [Mass/Vol] 0.0 mg/dL 0.0 - 0.3 mg/dL [facility] Work Phone: Protein [Mass/Vol] 7.8 g/dL 6.3 - 8.2 g/dL [facility] Work Phone: Otheron 07-03-2020 Interpretation and review of laboratory results Abnormal [facility] Work Phone: 1) Test Performed by [facility], [address] , [place], [place] [address] [facility] Work Phone: 1 Sedimentation Rateon 021 Sed Rate 10 mm/h 0 - 10 mm/h [facility] Work Phone: 1 Test Performed by [facility], [address], [place], [place] [address] [facility] Work Phone: 1 Urinalysison 07-03-2020 Appearance (U) Clear Clear NA [facility] Work Phone: 1 Comment on above: . Bacteria, UA Few (1-5) Abnormal Negative /[HPF] [facility] Work Phone: 1 Comment on above: . Bilirubin Urine Negative Negative mg/dL [facility] Work Phone: 1 Comment on above: . Color (U) YELLOW Lt. Yellow NA [facility] Work Phone: Comment on above: . Glucose, Ur Normal Normal (<70) mg/dL [facility] Work Phone: 1 Comment on above: . Interpretation and review of laboratory results Abnormal [facility] Work Phone: 1 Ketones Ql (U) Trace Abnormal Negative mg/dL [facility] Work Phone: 1 Comment on above: . LEUKOCYTES, UA Negative Negative Soren/uL [facility] Work Phone: Comment on above: . Nitrite, Urine Negative Negative NA [facility] Work Phone: Comment on above: . Occult Blood,Urine 0.06 mg/dL Abnormal Negative [facility] Work Phone: 1 Comment on above: . pH (U) 6.0 [pH] [facility] Work Phone: Comment on above: . Protein (U) [Mass/Vol] 600 mg/dL Abnormal Negative [facility] Work Phone: Comment on above: . RBC (U) [#/Vol] 0-2 0 - 2 /[HPF] [facility] Work Phone: Comment on above: . Specific [place], Urine 1.018 S [facility] Work Phone: [phone] Comment on above: . Squam Epithel, UA 0-2 3 - 5 /[HPF] [facility] Work Phone: [phone] Comment on above: . Urobilinogen, Urine Normal Normal ( 0-1) mg/dL [facility] Work Phone: [phone] Comment on above: . Volume 8-12 ml [facility] Work Phone: [phone] Comment on above: . WBC, UA 0-2 0 - 5 /[HPF] [facility] Work Phone: [phone] Comment on above: . Test Performed by [facility], [address] , [place], [place] [address] Work Phone: [phone] Urine Drug Screenon 07-04-19 21 Amphetamines, urine Negative [facility] Work Phone: [phone] Barbiturates, Ur Negative [facility] Work Phone: 1 Benzodiazepine Ur Qual Negative [facility] Work Phone: [phone] Cocaine Metabolites, Ur Negative [facility] Work Phone: [phone] Methadone, Urine Negative [facility] Work Phone: [phone] Opiates, Urine Positive [facility] Work Phone: [phone] Oxycodone Screen, Ur Positive [facility] Work Phone: [phone] PCP, Urine Negative [facility] Work Phone: [phone] Comment on above: The expected value f or all of the drugs listed above is Negative. The following drugs or drug groups have been screened for by Immunoassay at the following thresholds: Amphetamine class (1000 ng/mL), Barbiturates (200 ng/mL), Benzodiazepines (200 ng/mL), Cocaine (300 ng/mL), Methadone (300 ng/mL), Opiates (300 ng/mL), Oxycodone (100 ng/mL), and PCP (25 ng/mL). NOTE: These results are for medical treatment only. Analysis performed using non-forensic procedures. POSITIVE results are NOT confirmed by a more specific alternative method unless requested. If confirmation is needed, request confirmation under separate order. Test Performed by [facility], [address], [place] [address] [place] [address] Work Phone: XR HIP RIGHT (2-3 VIEWS)on 0 06-06-2020 Patient Name: EL SMITH Diagnostic Radiology ACCESSION EXAM DATE/TIME PROCEDURE ORDERING PROVIDER [id number] 06/06/2020 10:02 EST CR Hip w/ Pelvis 2 or 3 MD SANFORD DARRELL Views Right n ALBERT CPT code 63556 Reason For Exam (CR Hip w/ Pelvis 2 or 3 Views Right n) right leg pain Report CLINICAL INDICATION: Right hip pain. Status post fall A single AP view of the pelvis followed by AP and lateral views of the right hip were obtained. COMPARISON: None FINDINGS: No fracture or dislocation of the pelvis or right hip is identified. The right hip joint space is relatively well-preserved. The sacroiliac joints appear grossly unremarkable. No lytic or blastic bony lesions are seen. IMPRESSION: No fracture or dislocation of the pelvis or right hip is seen. Report Dictated on --- Final --- Dictating Physician: MD AMEZCUA LAURA Signed Date and Time: 06/06/2020 10:59 am Signed by: MD AMEZCUA LAURA Transcribed Date and Time: 06/06/2020 11:00 [facility] Work Phone: [facility] Incoming Radiology Results From [facility] - 06/06/2020 11:00 AM EST Patient Name: EL SMITH Diagnostic Radiology ACCESSION EXAM DATE/TIME PROCEDURE ORDERING PROVIDER [id number] 06/06/2020 10:02 EST CR Hip w/ Pelvis 2 or 3 MD SANFORD DARRELL Views Right n ALBERT CPT code 24127 Reason For Exam (CR Hip w/ Pelvis 2 or 3 Views Right n) right leg pain Report CLINICAL INDICATION: Right hip pain. Status post fall A single AP view of the pelvis followed by AP and lateral views of the right hip were obtained. COMPARISON: None FINDINGS: No fracture or dislocation of the pelvis or right hip is identified. The right hip joint space is relatively well-preserved. The sacroiliac joints appear grossly unremarkable. No lytic or blastic bony lesions are seen. IMPRESSION: No fracture or dislocation of the pelvis or right hip is seen. Report Dictated on --- Final --- Dictating Physician: MD AMEZCUA LAURA Signed Date and Time: 06/06/2020 10:59 am Signed by: MD AMEZCUA LAURA Transcribed Date and Time: 06/06/2020 11:00 [facility] Work Phone: Basic Metabolic Panelon 12-1 Anion gap [Moles/Vol] 17 mmol/L [place], [place] Calcium [Mass/Vol] 9.8 mg/dL 8.4 - 10. 4 mg/dL [place] Chloride [Moles/Vol] 96 mmol/L Low 98 - 10 7 mmol/L [place] CO2 [Moles/Vol] 26 mmol/L 22 - 30 mmol/L [place] Creatinine [Mass/Vol] 0.96 mg/dL 0.52 - 1.25 mg/dL [place] EGFR IF NonAfrican [place] >90.0 >60 mL/min [place] Comment on above: KDIGO guidelines pro vide the following GFR categories: Stage GFR(ml/min/1.73 m2) Terms G1 >=90 Normal or high G2 60-89 Mildly decreased* G3a 45-59 Mildly to moderately decreased G3b 30-44 Moderately to severely decreased G4 15-29 Severely decreased G5 <15 Kidney failure *Relative to young adult level. In the absence of evidence of kidney damage, neither GFR category G1 nor G2 fulfill the criteria for CKD. The CKD-EPI equation is validated in individuals 18 years of age and older. Currently the best equation for estimating glomerular filtration rate (GFR) from serum creatinine in children is the Bedside Finch equation. It is less accurate in patients with extremes of muscle mass, restriction of dietary protein, ingestion of creatine, extra-renal metabolism of creatinine, or treatment with medications that affect renal tubular creatinine secretion. GFR/1.73 sq M predicted among blacks MDRD (S/P/Bld) [Vol rate/Area] mL/min/{1.73_m2} >60 mL/min [place] Glucose [Mass/Vol] 143 mg/dL High 70 - 100 mg/dL [place] Interpretation and review of laboratory results Abnormal [place] Potassium [Moles/Vol] 3.3 mmol/L Low 3.5 - 5.1 mmol/L [place] Sodium [Moles/Vol] 138 mmol/L 135 - 145 mmol/L [place] Urea nitrogen [Mass/Vol] 9 mg/dL 7 - 20 mg/dL [place] Hemogram (CBC) w/Auto Diffon 04-05-2020 Erythrocyte distribution width (RBC) [Ratio] 16.0 % High 11.5 - 14.5 % [place] Hematocrit (Bld) [Volume fraction] 59.9 % High 40 - 52 % [place] Hemoglobin (Bld) [Mass/Vol] 20.3 g/dL High 13 - 18 g/dL [place] MCH (RBC) [Entitic mass] 30.0 pg 26 - 34 pg [place] MCHC (RBC) [Mass/Vol] 33.9 % 32 - 36 % [place] MCV (RBC) [Entitic vol] 88.5 fL 80 - 98 fL [place], [place] Platelet mean volume (Bld) [Entitic vol] 7.0 fL Low 7.4 - 10.4 fL [place] Platelets (Bld) [#/Vol] 591 10*3/uL High 140 - 440 10*3/uL [place] RBC (Bld) [#/Vol] 6.77 10*6/uL High 4.4 - 5.9 10*6/uL [place] WBC (Bld) [#/Vol] 18.7 10*3/uL High 3.6 - 10.7 10*3/uL [place] Hepatic Function Panelon Albumin [Mass/Vol] 5.0 g/dL 3.5 - 5 g/dL [place], [place] ALP [Catalytic activity/Vol] 139 U/L High 38 - 126 U/L [place] ALT [Catalytic activity/Vol] 77 U/L High 0 - 49 U/L [place] Comment on above: The ALT test is perf ormed by an updated assay method. Please note that the reference intervals have been changed and are now sex specific. AST [Catalytic activity/Vol] 115 U/L High 15 - 46 U/L [place] Bilirubin Ql (U) 1.3 mg/dL 0.2 - 1.3 mg/dL [place] Bilirubin.direct [Mass/Vol] 0.0 mg/dL 0 - 0.3 mg/dL [place] Interpretation and review of laboratory results Abnormal [place] Protein [Mass/Vol] 8.6 g/dL High 6.3 - 8.2 g/dL [place] Test Performed by [facility], [address] , [address] Lactic Acid, Plasmaon 2019 Interpretation and review of laboratory results Abnormal [place] Lactate [Moles/Vol] 3.5 mmol/L Critically high 0.7 - 2 mmol/L [place] Test Performed by [facility], [facility] [address] , [address] Lipaseon 04-05-2020 Lipase [Catalytic activity/Vol] 58 U/L 23 - 300 U/L [place] Manual Differentialon 2019 Absolute Baso # 0.0 10*3/uL 0 - 0.2 10*3/uL [place] Absolute Eos # 0.0 10*3/uL 0 - 0.5 10*3/uL [place] Absolute Lymph # 1.9 10*3/uL 1.1 - 4.5 10*3/uL [place] Absolute [place] # 1.5 10*3/uL High 0.2 - 1.1 10*3/uL [place] Absolute Neut # 15.3 10*3/uL High 2.2 - 8.2 10*3/uL [place] Bands 0 % 0 - 3 % [place] Basophils 0 % 0 - 2 % [facility] SARAN Eosinophils 0 % Low 1 - 6 % [facility] [place] Lymphocytes 10 % Low 20 - 40 % [facility], [facility] Monocytes 8 % 2 - 10 % [facility] [place] RBC morphology finding Nom (Bld) Normal [place] Seg Neutrophils 82 % High 40 - 80 % [facility] [place] TOTAL CELLS COUNTED 100 [place] Otheron 04-05-2020 Interpretation and review of laboratory results Abnormal [place] Test Performed by [facility], [address] , [address] Test Performed by [facility], [address] , [address] Troponin x1on 04-05-2020 Troponin I.cardiac [Mass/Vol] ng/mL 0 - 0.034 ng/mL [place] Comment on above: . Test Performed by [employer] [facility], [address] , [address] XR CHEST PORTABLEon 04-05-20 20 [facility], [facility] Incoming Radiology Results From [facility] - 04/05/2020 9:02 AM EST Patient Name: EL SMITH Diagnostic Radiology ACCESSION EXAM DATE/TIME PROCEDURE ORDERING PROVIDER [id number] 04/05/2020 08:51 EST CR Chest Portable MD OROZCO DAVID C. CPT code 94124 Reason For Exam (CR Chest Portable) chest pain Report Examination: Portable Chest, 0842 hours 04/05/2020. Comparison: 11/11/2019. Reason For Study: Chest pain. Findings: Cardiac silhouette is normal in size. No mediastinal abnormality is observed. Lungs are well-aerated. No abnormal pleuroparenchymal opacity is observed. Osseous structures appear intact. Support Devices: None. Conclusion(s): No evidence of acute cardiopulmonary disease. Report Dictated on --- Final --- Dictating Physician: MD STEIN B NELSON Signed Date and Time: 04/05/2020 9:01 am Signed by: MD STEIN B NELSON Transcribed Date and Time: 04/05/2020 9:02 [place], [place] Patient Name: EL SMITH Diagnostic Radiology ACCESSION EXAM DATE/TIME PROCEDURE ORDERING PROVIDER [id number] 04/05/2020 08:51 EST CR Chest Portable MD ERNESTO, NAILA Vargas CPT code 85881 Reason For Exam (CR Chest Portable) chest pain Report Examination: Portable Chest, 0842 hours 04/05/2020. Comparison: 11/11/2019. Reason For Study: Chest pain. Findings: Cardiac silhouette is normal in size. No mediastinal abnormality is observed. Lungs are well-aerated. No abnormal pleuroparenchymal opacity is observed. Osseous structures appear intact. Support Devices: None. Conclusion(s): No evidence of acute cardiopulmonary disease. Report Dictated on --- Final --- Dictating Physician: MD STEIN B NELSON Signed Date and Time: 04/05/2020 9:01 am Signed by: MD STEIN B NELSON Transcribed Date and Time: 04/05/2020 9:02 [place] Comprehensive Metabolic Pane eduardo 12-14-2019 Albumin [Mass/Vol] 4.4 g/dL Normal 3.9-4.9 [facility] Comment on above: Performed By: #### C MP #### [address] [address] ALP [Catalytic activity/Vol] 135 U/L High 38-113 [facility] Comment on above: Performed By: #### C MP #### [address] [address] ALT [Catalytic activity/Vol] 31 U/L Normal 10-54 [facility] Comment on above: Performed By: #### C MP #### [facility] 1 [place], [place] [address] Anion gap [Moles/Vol] 17 mmol/L Normal 9-18 [facility] Comment on above: Performed By: #### C MP #### [address] [address] AST [Catalytic activity/Vol] 28 U/L Normal 14-40 [facility] Comment on above: Performed By: #### C MP #### [facility] 1 [place], [place] [address] Bilirubin [Mass/Vol] 0.4 mg/dL Normal 0.2-1.3 [facility] Comment on above: Performed By: #### C MP #### [facility] 1 [place], [place] [address] Calcium [Mass/Vol] 9.3 mg/dL Normal 8.5-10.2 [facility] Comment on above: Performed By: #### C MP #### [facility] 1 [place], [place] [address] Chloride [Moles/Vol] 103 mmol/L Normal 97-105 [facility] Comment on above: Performed By: #### C MP #### [facility] 1 [place], [place] [address] CO2 Blood 23 mmol/L Normal 22-30 [facility] Comment on above: Performed By: #### C MP #### [facility] 1 [place], [place] [address] Creatinine [Mass/Vol] 0.71 mg/dL Low 0.73-1.22 [facility] Comment on above: Performed By: #### C MP #### [facility] 1 [place], [place] [address] Glucose [Mass/Vol] 120 mg/dL High 74-99 [facility] Comment on above: Result Comment: The [place] Diabetes Association (ADA) provides guidance for cutoff values for fasting glucose and random glucose. The ADA defines fasting as no caloric intake for at least 8 hours.Fasting plasma glucose results between 100 to 125 mg/dL indicate increased risk for diabetes (prediabetes). Fasting plasma glucose results greater than or equal to 126 mg/dL meet the criteria for diagnosis of diabetes. In the absence of unequivocal hyperglycemia, results should be confirmed by repeat testing. In a patient with classic symptoms of hyperglycemia or hyperglycemic crisis, random plasma glucose results greater than or equal to 200 mg/dL meet the criteria for diagnosis of diabetes. Reference: Standards of Medical Care in Diabetes 2016; [place] Diabetes Association. Diabetes Care. 2016;39(Suppl 1). Performed By: #### C MP #### [facility] 1 [place], [place] [address] Potassium [Moles/Vol] 2.9 mmol/L Low 3.7-5.1 [facility] Comment on above: Performed By: #### C MP #### [facility] 1 [place], [place] [address] Protein [Mass/Vol] 7.4 g/dL Normal 6.3-8.0 [facility] Comment on above: Performed By: #### C MP #### [facility] 1 [place], [place] [address] Sodium [Moles/Vol] 143 mmol/L Normal 136-144 [facility] Comment on above: Performed By: #### C MP #### [facility] [address] [place], [place] [address] Urea nitrogen [Mass/Vol] 4 mg/dL Low 9-24 [facility] Comment on above: Performed By: #### C MP #### [facility] 1 [place], [place] [address] ED NOTEon 12-14-2019 ED NOTE HNO ID: [id number] Author: Chhaya (Rn) DESIREE Stewart Service: Emergency Medicine Author Type: Registered Nurse Type: ED Notes Filed: 12/14/2019 9:41 PM Note Text: Pt demanding to leave and demanding his IV be removed. Pt states he is going to another hospital. Yolanda Mckeon to speak with pt about low potassium level. Pt states he is going to [place] ED. Normal [facility] ED Triage Noteon 12-14-2019 ED Triage Note HNO ID: [id number] Author: Eliana Gutierrez) AJIT Galarza Service: Emergency Medicine Author Type: Physician Clinical Business Analyst Type: ED Triage Notes Filed: 12/14/2019 6:30 PM Note Text: ED INTAKE NOTE Patient Name: El Smith Service Date: 12/14/19 BRIEF HPI: 31-year-old male complains of right upper quadrant pain ?2 days. Endorses dry heaves and 3 episodes of watery stools. Denies vomiting, fever. Ibuprofen not helping. BRIEF EXAM: Awake and Alert RRR Bilateral wheezes, patient is a smoker INTAKE WORKUP: Bloodwork: CBC CMP lipase Urinalysis SIGNATURE: Eliana Galarza PA-C Normal [facility] Hemogram/Diffon 12-14-2019 Abs Immature Grans 0.07 thou/cmm High 0.00-0.05 [facility] Comment on above: Performed By: #### C BCD1 #### [facility] 1 [place] [address] Abs Neut (ANC) 8.88 thou/cmm High 1.78-5.38 [facility] Comment on above: Performed By: #### C BCD1 #### [facility] [address] [place] [address] Abs. Baso 0.15 thou/cmm High 0.01-0.08 [facility] Comment on above: Performed By: #### C BCD1 #### [facility] [address] [place] [address] Abs. [place] 0.96 thou/cmm High 0.30-0.82 [facility] Comment on above: Performed By: #### C BCD1 #### [facility] [address] [place] [address] Basophils/100 WBC (Bld) 1.1 % Normal A [facility] Comment on above: Performed By: #### C BCD1 #### [facility] [address] [place] [address] Eosinophils (Bld) [#/Vol] 0.03 thou/cmm Low 0.04-0.54 [facility] Comment on above: Performed By: #### C BCD1 #### [facility] [address] [place] [address] Eosinophils/100 WBC (Bld) 0.2 % Normal [facility] Comment on above: Performed By: #### C BCD1 #### [facility] [address] [place] [address] Erythrocyte distribution width (RBC) [Ratio] 14.3 % Normal 11.6-14.4 [facility] Comment on above: Performed By: #### C BCD1 #### [place] [id number] Hematocrit (Bld) [Volume fraction] 52.7 % High 40.1-51.0 [facility] Comment on above: Performed By: #### C BCD1 #### [facility] [address] [place] [address] Hemoglobin (Bld) [Mass/Vol] 18.4 g/dL High 13.7-17.5 [facility] Comment on above: Performed By: #### C BCD1 #### [facility] [address] [place] [address] Immature Grans 0.50 % Normal [facility] Comment on above: Performed By: #### C BCD1 #### [facility] [address] [place] [address] Lymphocytes (Bld) [#/Vol] 3.23 thou/cmm High 0.84-2.85 [facility] Comment on above: Performed By: #### C BCD1 #### [facility] [address] [place] [address] Lymphocytes/100 WBC (Bld) 24.3 % Normal [facility] Comment on above: Performed By: #### C BCD1 #### [facility] [address] [place] [address] MCH (RBC) [Entitic mass] 31.2 pg Normal 25.7-32.2 [facility] Comment on above: Performed By: #### C BCD1 #### [facility] [address] [place] [address] MCHC (RBC) [Mass/Vol] 34.9 % Normal 32.3-36.5 [facility] Comment on above: Performed By: #### C BCD1 #### [facility] [address] [place] [address] MCV (RBC) [Entitic vol] 89.5 fL Normal 83.2-95.6 [facility] Comment on above: Performed By: #### C BCD1 #### [place] [address] Monocytes/100 WBC (Bld) 7.2 % Normal [facility] Comment on above: Performed By: #### C BCD1 #### [facility] [address] [place] [address] Platelet mean volume (Bld) [Entitic vol] 8.4 fL Low 8.7-12.0 [facility] Comment on above: Performed By: #### C BCD1 #### [facility] [address] [place] [address] Platelets (Bld) [#/Vol] 549 thou/cmm High 141-365 [facility] Comment on above: Performed By: #### C BCD1 #### [facility] [address] [place] [address] RBC (Bld) [#/Vol] 5.89 mil/cmm Normal 4.63-6.08 [facility] Comment on above: Performed By: #### C BCD1 #### [place] [address] RDW SD 46.4 fl High 36.1-45.8 [facility] Comment on above: Performed By: #### C BCD1 #### [facility] [address] [place] [address] Seg Neutrophil 66.7 % Normal [facility] Comment on above: Performed By: #### C BCD1 #### [facility] [address] [place] [address] WBC (Bld) [#/Vol] 13.31 thou/cmm High 4.23-9.07 [facility] Comment on above: Performed By: #### C BCD1 #### [facility] [address] [place] [address] Lipase Bloodon 12-14-2019 Lipase Blood 32 U/L Normal 16-61 [facility] Comment on above: Performed By: #### L IP #### [place] [address] MDRD GFRon 12-14-2019 GFR/1.73 sq M predicted among non-blacks MDRD (S/P/Bld) [Vol rate/Area] mL/min/{1.73_m2} Normal >60mL/min/1.7 3m2 [facility] Comment on above: Result Comment: If t he patient is , multiply the result by 1.210. Performed By: #### G FR #### [place] [address] Urinalysis Routineon 020 Bacteria LM.HPF (Urine sed) [#/Area] NONE Normal None [facility] Comment on above: Performed By: #### U RIN2 #### [place] [address] Ep Cells Urine 1.5 /hpf Normal 0.0-5.0 [facility] Comment on above: Performed By: #### U RIN2 #### [place] [address] Hyaline Cast 5.3 /lpf High 0.0-1.0 [facility] Comment on above: Performed By: #### U RIN2 #### [place] [address] RBC LM.HPF (Urine sed) [#/Area] 4.3 /[HPF] Normal 0.0-5.0 [facility] Comment on above: Performed By: #### U RIN2 #### [place] [address] WBC LM.HPF (Urine sed) [#/Area] 2.8 /[HPF] Normal 0.0-5.0 [facility] Comment on above: Performed By: #### U RIN2 #### [place] [address] Appearance (U) CLEAR Normal [facility] Comment on above: Performed By: #### U RIN2 #### [place] [address] Bilirubin (U) [Mass/Vol] Negative Normal Negative [facility] Comment on above: Performed By: #### U RIN2 #### [place] [address] Color (U) DK YELLOW Normal [facility] Comment on above: Performed By: #### U RIN2 #### [place] [id number] Glucose Ql (U) Negative Normal Negative [facility] Comment on above: Performed By: #### U RIN2 #### [facility] [address] [place] [address] Hemoglobin,Urine Negative Normal Negative [facility] Comment on above: Performed By: #### U RIN2 #### [facility] [address] [place] [address] Ketone Urine Negative Normal Negative [facility] Comment on above: Performed By: #### U RIN2 #### [facility] [address] [place] [address] Leukocytes Esterase Negative Normal Negative [facility] Comment on above: Performed By: #### U RIN2 #### [facility] [address] [place] [address] Nitrites Urine Negative Normal Negative [facility] Comment on above: Performed By: #### U RIN2 #### [place] [address] pH (U) 6.5 [pH] Normal 5.0-8.0 [facility] Comment on above: Performed By: #### U RIN2 #### [place] [address] Protein (U) [Mass/Vol] 100 mg/dL Abnormal Negative [facility] Comment on above: Performed By: #### U RIN2 #### [place] [address] Specific [place], Ur 1.022 Normal 1.005-1.030 [facility] Comment on above: Performed By: #### U RIN2 #### [place] [address] Urobilinogen,Ur 1.0 EU/dL Normal 0.2-1.0 [facility] Comment on above: Performed By: #### U RIN2 #### [place] [address] [address] Cervical Spine WO Paulo ton 11-18-2019 [facility], [facility] Incoming Radiology Results From [facility] - 11/18/2019 11:30 AM EDT Patient Name: EL SMITH ---CT--- Exam Date/Time 11/18/2019 11:16:[address] Spine Cervical w/o Contrast Ordering Physician DARLYN WEISS Accession Number [id number] CPT4 Codes 77840 () Reason For Exam neck pain Report Indication: Neck pain and trauma Comparison none FINDINGS: Unenhanced cervical spine performed. 2 mm slices were reviewed in multiple orthogonal planes. 1 mm slices reviewed in transaxial plane. 3-D imaging created and reviewed on independent 3-D workstation for better evaluation of neural foramina. Scan performed from above the foramen magnum to approximately T2. Bone density:Normal. Acute lesions: No acute fracture or dislocation. Soft tissues: No soft tissue swelling. Arthritis: No significant degenerative change or significant neural foraminal narrowing. Limited views of skull base unremarkable. Visualized portions of lung apices clear. IMPRESSION: No acute process visualized. Report Dictated on --- Final --- Dictating Physician: MD QUEEN JOHN Signed Date and Time: 11/18/2019 11:29 am Signed by: MD QUEEN JOHN Transcribed Date and Time: 11/18/2019 11:30 [place], [place] Patient Name: EL SMITH ---CT--- Exam Date/Time 11/18/2019 11:16:[address] Spine Cervical w/o Contrast Ordering Physician DARLYN WEISS Accession Number [id number] CPT4 Codes 96895 () Reason For Exam neck pain Report Indication: Neck pain and trauma Comparison none FINDINGS: Unenhanced cervical spine performed. 2 mm slices were reviewed in multiple orthogonal planes. 1 mm slices reviewed in transaxial plane. 3-D imaging created and reviewed on independent 3-D workstation for better evaluation of neural foramina. Scan performed from above the foramen magnum to approximately T2. Bone density:Normal. Acute lesions: No acute fracture or dislocation. Soft tissues: No soft tissue swelling. Arthritis: No significant degenerative change or significant neural foraminal narrowing. Limited views of skull base unremarkable. Visualized portions of lung apices clear. IMPRESSION: No acute process visualized. Report Dictated on --- Final --- Dictating Physician: MD QUEEN JOHN Signed Date and Time: 11/18/2019 11:29 am Signed by: MD QUEEN JOHN Transcribed Date and Time: 11/18/2019 11:30 [place], [place] CT Head WO Contraston 2019 [facility] Incoming Radiology Results From [facility] - 11/18/2019 11:27 AM EDT Patient Name: EL SMITH ---CT--- Exam Date/Time 11/18/2019 11:16:[address] Head or Brain w/o Contrast Ordering Physician DARLYN WEISS Accession Number [id number] CPT4 Codes 83371 () Reason For Exam NUÑEZ Report Indication: Headache Comparison date: No comparison. FINDINGS: 3 mm unenhanced imaging of the brain performed. Images viewed in multiple orthogonal planes. There is no acute edema. No midline shift. There is no evidence of acute infarct. There is no definite acute hemorrhage. No abnormal extra-axial fluid collections visualized. Bony structures:Unremarkab le as seen. CSF spaces are unremarkable. Orbits within normal limits. Review of the paranasal sinuses shows no air-fluid levels. IMPRESSION: No acute brain process identified. Report Dictated on --- Final --- Dictating Physician: MD QUEEN JOHN Signed Date and Time: 11/18/2019 11:26 am Signed by: MD QUEEN JOHN Transcribed Date and Time: 11/18/2019 11:27 [place], [place] Patient Name: EL SMITH ---CT--- Exam Date/Time 11/18/2019 11:16:[address] Head or Brain w/o Contrast Ordering Physician DARLYN WEISS Accession Number [id number] CPT4 Codes 37375 () Reason For Exam NUÑEZ Report Indication: Headache Comparison date: No comparison. FINDINGS: 3 mm unenhanced imaging of the brain performed. Images viewed in multiple orthogonal planes. There is no acute edema. No midline shift. There is no evidence of acute infarct. There is no definite acute hemorrhage. No abnormal extra-axial fluid collections visualized. Bony structures:Unremarkab le as seen. CSF spaces are unremarkable. Orbits within normal limits. Review of the paranasal sinuses shows no air-fluid levels. IMPRESSION: No acute brain process identified. Report Dictated on --- Final --- Dictating Physician: MD QUEEN JOHN Signed Date and Time: 11/18/2019 11:26 am Signed by: MD QUEEN JOHN Transcribed Date and Time: 11/18/2019 11:27 [place], [place] Comprehensive Metabolic Pane eduardo 11-18-2019 Albumin [Mass/Vol] 4.6 g/dL 3.5 - 5 g/dL [place] ALP [Catalytic activity/Vol] 133 U/L High 38 - 126 U/L [place] ALT [Catalytic activity/Vol] 46 U/L 0 - 49 U/L [place] Comment on above: The ALT test is perf ormed by an updated assay method. Please note that the reference intervals have been changed and are now sex specific. Anion gap [Moles/Vol] 14 mmol/L [place], [place] AST [Catalytic activity/Vol] 60 U/L High 15 - 46 U/L [place] Bilirubin Ql (U) 1.1 mg/dL 0.2 - 1.3 mg/dL [place] Calcium [Mass/Vol] 9.0 mg/dL 8.4 - 10. 4 mg/dL [place] Chloride [Moles/Vol] 103 mmol/L 98 - 10 7 mmol/L [place] CO2 [Moles/Vol] 26 mmol/L 22 - 30 mmol/L [place] Creatinine [Mass/Vol] 0.73 mg/dL 0.52 - 1.25 mg/dL [place] EGFR IF NonAfrican [place] >90.0 >60 mL/min [place] Comment on above: KDIGO guidelines pro vide the following GFR categories: Stage GFR(ml/min/1.73 m2) Terms G1 >=90 Normal or high G2 60-89 Mildly decreased* G3a 45-59 Mildly to moderately decreased G3b 30-44 Moderately to severely decreased G4 15-29 Severely decreased G5 <15 Kidney failure *Relative to young adult level. In the absence of evidence of kidney damage, neither GFR category G1 nor G2 fulfill the criteria for CKD. The CKD-EPI equation is validated in individuals 18 years of age and older. Currently the best equation for estimating glomerular filtration rate (GFR) from serum creatinine in children is the Bedside Finch equation. It is less accurate in patients with extremes of muscle mass, restriction of dietary protein, ingestion of creatine, extra-renal metabolism of creatinine, or treatment with medications that affect renal tubular creatinine secretion. GFR/1.73 sq M predicted among blacks MDRD (S/P/Bld) [Vol rate/Area] mL/min/{1.73_m2} >60 mL/min [place] Glucose [Mass/Vol] 114 mg/dL High 70 - 100 mg/dL [place] Interpretation and review of laboratory results Abnormal [place] Potassium [Moles/Vol] 3.5 mmol/L 3.5 - 5.1 mmol/L [place] Protein [Mass/Vol] 8.0 g/dL 6.3 - 8.2 g/dL [place] Sodium [Moles/Vol] 142 mmol/L 135 - 145 mmol/L [place] Urea nitrogen [Mass/Vol] 12 mg/dL 7 - 20 mg/dL [place] Test Performed by [facility], [address] [place], [place] [address] , [address] Hemogram (CBC) w/Auto Diffon 11-18-2019 Absolute Baso # 0.1 10*3/uL 0 - 0.2 10*3/uL [place] Absolute Neut # 6.9 10*3/uL 1.8 - 7 10*3/uL [place] Basophils/100 WBC (Bld) 1.4 % 0 - 2 % [place] Eosinophils (Bld) [#/Vol] 0.0 10*3/uL 0 - 0.5 10*3/uL [place] Eosinophils/100 WBC (Bld) 0.1 % Low 1 - 6 % [place] Erythrocyte distribution width (RBC) [Ratio] 14.4 % 11.5 - 14.5 % [place] Granulocytes/100 WBC (Bld) 70.2 % 40 - 80 % [place] Hematocrit (Bld) [Volume fraction] 51.7 % 40 - 52 % [place] Hemoglobin (Bld) [Mass/Vol] 18.6 g/dL High 13 - 18 g/dL [place] Interpretation and review of laboratory results Abnormal [place] Lymphocytes (Bld) [#/Vol] 2.1 10*3/uL 1 - 4.3 10*3/uL [place] Lymphocytes/100 WBC (Bld) 21.6 % 20 - 40 % [place] MCH (RBC) [Entitic mass] 32.4 pg 26 - 34 pg [place] MCHC (RBC) [Mass/Vol] 35.9 % 32 - 36 % [place] MCV (RBC) [Entitic vol] 90.3 fL 80 - 98 fL [place], [place] Monocytes (Bld) [#/Vol] 0.7 10*3/uL 0 - 0.8 10*3/uL [place] Monocytes/100 WBC (Bld) 6.7 % 2 - 10 % [place] Platelet mean volume (Bld) [Entitic vol] 6.6 fL Low 7.4 - 10.4 fL [place] Platelets (Bld) [#/Vol] 510 10*3/uL High 140 - 440 10*3/uL [place] RBC (Bld) [#/Vol] 5.73 10*6/uL 4.4 - 5.9 10*6/uL [place] WBC (Bld) [#/Vol] 9.8 10*3/uL 3.6 - 10.7 10*3/uL [place] Test Performed by [facility], [facility] Sandra Fu , [address] [facility]Con 09-22-2019 Erythrocyte distribution width (RBC) [Ratio] 14.1 % 11.5 - 14.5 % [place] Hematocrit (Bld) [Volume fraction] 45.4 % 40 - 52 % [place] Hemoglobin (Bld) [Mass/Vol] 15.9 g/dL 13 - 18 g/dL [place] Interpretation and review of laboratory results Abnormal [place] MCH (RBC) [Entitic mass] 31.4 pg 26 - 34 pg [place] MCHC (RBC) [Mass/Vol] 35.1 % 32 - 36 % [place] MCV (RBC) [Entitic vol] 89.5 fL 80 - 98 fL [place] Platelet mean volume (Bld) [Entitic vol] 6.5 fL Low 7.4 - 10.4 fL [place] Platelets (Bld) [#/Vol] 384 10*3/uL 140 - 440 10*3/uL [place] RBC (Bld) [#/Vol] 5.07 10*6/uL 4.4 - 5.9 10*6/uL [place] WBC (Bld) [#/Vol] 17.4 10*3/uL High 3.6 - 10.7 10*3/uL [place] Test Performed by [facility], [address] [place] [id number] [place] [address] CT Abdomen Pelvis W Contrast on 09-22-2019 Patient Name: EL SMITH ---CT--- Exam Date/Time 09/22/2019 07:04:[address] Abdomen/Pelvis w/ IV Contrast (IV Onl Ordering Physician MD JACKIE, FELICIANO Laguerre Accession Number [id number] CPT4 Codes 27588 (CT Abdomen/Pelvis w/ IV Contrast (IV Onl), Q9967 (CT ISOVUE 370MG/ML&[id number]& ML&1), Q9966 (CT OMNIPAQUE 240 PER ML&[id number]&ML&1) Reason For Exam Worse uncontrollable abdominal pain, ?perf duodenal ulcer Report CT ABDOMEN AND PELVIS WITH CONTRAST EXAM DATE AND TIME: 09/22/2019 7:04 AM EDT INDICATION: 38 years Male with worsening abdominal pain COMPARISON: CT from yesterday TECHNIQUE: Transaxial sequence through the abdomen and pelvis with 3 mm reconstruction with dynamic intravenous infusion of 75 mL of 370 mg% contrast media. Coronal and sagittal reconstructions included. Dose reduction was employed with automated exposure control. FINDINGS: Chest base: Dependent atelectatic changes are seen in the lung bases, without consolidation or pleural effusion. Heart size is normal without a pericardial effusion. Liver: Normal size and contour. Multiple small hypodensities are seen, too small to characterize but probably represent cysts.. Biliary tree: There is extrahepatic biliary dilation with the common duct measuring up to 12 mm. There is mild central intrahepatic biliary dilation. The gallbladder is nondistended. Spleen: Normal. Adrenals: Normal. Pancreas: Fat stranding surrounding the uncinate process of the pancreas. No peripancreatic fluid collection. Kidneys: Symmetric contrast enhancement without hydronephrosis. Small right renal cyst. No enhancing lesion. Free fluid: None. Retroperitoneal/mesen teric lymphadenopathy: None. Bowel: Normal caliber. No pneumoperitoneum. Inflammatory changes involving the distal duodenum with adjacent fat stranding is again noted. The appendix is not identified, however there is no pericecal fat stranding. Aorta: Mild atherosclerotic calcifications are seen in the aorta and its branches. The aorta is normal in caliber. Abdominal wall: Normal. Pelvic organs/viscera: No mass identified. Pelvic lymphadenopathy: None. Osseous structures: No abnormality. IMPRESSION: Peripancreatic fat stranding poorly correlate with pancreatic enzyme levels for possible pancreatitis. Adjacent inflammatory changes involving the duodenum, unchanged from the prior study and could be related to duodenitis, which may or may not be secondary to pancreatitis. No pneumoperitoneum to suggest perforation. Biliary dilation; correlate with liver function tests and consider MRCP for further evaluation. Multiple small hypodensities are seen in the liver, too small to characterize but probably represent cysts. Report Dictated on --- Final --- Dictating Physician: MD MONROE NICHOLAS Signed Date and Time: 09/22/2019 7:20 am Signed by: MD MONROE NICHOLAS Transcribed Date and Time: 09/22/2019 7:21 [facility] [place] [place] [facility] Incoming Radiology Results From [facility] - 09/22/2019 7:21 AM EDT Patient Name: EL SMITH ---CT--- Exam Date/Time 09/22/2019 07:04:[address] Abdomen/Pelvis w/ IV Contrast (IV Onl Ordering Physician MD JACKIE, FELICIANO Laguerre Accession Number [id number] CPT4 Codes 39729 (CT Abdomen/Pelvis w/ IV Contrast (IV Onl), Q9967 (CT ISOVUE 370MG/ML&[id number]& ML&1), Q9966 (CT OMNIPAQUE 240 PER ML&[id number]&ML&1) Reason For Exam Worse uncontrollable abdominal pain, ?perf duodenal ulcer Report CT ABDOMEN AND PELVIS WITH CONTRAST EXAM DATE AND TIME: 09/22/2019 7:04 AM EDT INDICATION: 38 years Male with worsening abdominal pain COMPARISON: CT from yesterday TECHNIQUE: Transaxial sequence through the abdomen and pelvis with 3 mm reconstruction with dynamic intravenous infusion of 75 mL of 370 mg% contrast media. Coronal and sagittal reconstructions included. Dose reduction was employed with automated exposure control. FINDINGS: Chest base: Dependent atelectatic changes are seen in the lung bases, without consolidation or pleural effusion. Heart size is normal without a pericardial effusion. Liver: Normal size and contour. Multiple small hypodensities are seen, too small to characterize but probably represent cysts.. Biliary tree: There is extrahepatic biliary dilation with the common duct measuring up to 12 mm. There is mild central intrahepatic biliary dilation. The gallbladder is nondistended. Spleen: Normal. Adrenals: Normal. Pancreas: Fat stranding surrounding the uncinate process of the pancreas. No peripancreatic fluid collection. Kidneys: Symmetric contrast enhancement without hydronephrosis. Small right renal cyst. No enhancing lesion. Free fluid: None. Retroperitoneal/mesen teric lymphadenopathy: None. Bowel: Normal caliber. No pneumoperitoneum. Inflammatory changes involving the distal duodenum with adjacent fat stranding is again noted. The appendix is not identified, however there is no pericecal fat stranding. Aorta: Mild atherosclerotic calcifications are seen in the aorta and its branches. The aorta is normal in caliber. Abdominal wall: Normal. Pelvic organs/viscera: No mass identified. Pelvic lymphadenopathy: None. Osseous structures: No abnormality. IMPRESSION: Peripancreatic fat stranding poorly correlate with pancreatic enzyme levels for possible pancreatitis. Adjacent inflammatory changes involving the duodenum, unchanged from the prior study and could be related to duodenitis, which may or may not be secondary to pancreatitis. No pneumoperitoneum to suggest perforation. Biliary dilation; correlate with liver function tests and consider MRCP for further evaluation. Multiple small hypodensities are seen in the liver, too small to characterize but probably represent cysts. Report Dictated on --- Final --- Dictating Physician: MD MONROE NICHOLAS Signed Date and Time: 09/22/2019 7:20 am Signed by: MD MONROE NICHOLAS Transcribed Date and Time: 09/22/2019 7:21 [place] Comprehensive Metabolic Pane eduardo 09-22-2019 Albumin [Mass/Vol] 3.5 g/dL 3.5 - 5 g/dL [place] ALP [Catalytic activity/Vol] 92 U/L 38 - 126 U/L [place] ALT [Catalytic activity/Vol] 12 U/L 0 - 49 U/L [place] Comment on above: The ALT test is perf ormed by an updated assay method. Please note that the reference intervals have been changed and are now sex specific. Anion gap [Moles/Vol] 10 mmol/L [place], [place] AST [Catalytic activity/Vol] 24 U/L 15 - 46 U/L [place] Bilirubin Ql (U) 0.7 mg/dL 0.2 - 1.3 mg/dL [place] Calcium [Mass/Vol] 8.3 mg/dL Low 8.4 - 10. 4 mg/dL [place] Chloride [Moles/Vol] 102 mmol/L 98 - 10 7 mmol/L [place] CO2 [Moles/Vol] 24 mmol/L 22 - 30 mmol/L [place] Creatinine [Mass/Vol] 0.78 mg/dL 0.52 - 1.25 mg/dL [place] EGFR IF NonAfrican [place] >90.0 >60 mL/min [place] Comment on above: KDIGO guidelines pro vide the following GFR categories: Stage GFR(ml/min/1.73 m2) Terms G1 >=90 Normal or high G2 60-89 Mildly decreased* G3a 45-59 Mildly to moderately decreased G3b 30-44 Moderately to severely decreased G4 15-29 Severely decreased G5 <15 Kidney failure *Relative to young adult level. In the absence of evidence of kidney damage, neither GFR category G1 nor G2 fulfill the criteria for CKD. The CKD-EPI equation is validated in individuals 18 years of age and older. Currently the best equation for estimating glomerular filtration rate (GFR) from serum creatinine in children is the Bedside Finch equation. It is less accurate in patients with extremes of muscle mass, restriction of dietary protein, ingestion of creatine, extra-renal metabolism of creatinine, or treatment with medications that affect renal tubular creatinine secretion. GFR/1.73 sq M predicted among blacks MDRD (S/P/Bld) [Vol rate/Area] mL/min/{1.73_m2} >60 mL/min [place] Glucose [Mass/Vol] 97 mg/dL 70 - 100 mg/dL [place] Interpretation and review of laboratory results Abnormal [place] Potassium [Moles/Vol] 3.2 mmol/L Low 3.5 - 5.1 mmol/L [place] Protein [Mass/Vol] 6.0 g/dL Low 6.3 - 8.2 g/dL [place] Sodium [Moles/Vol] 135 mmol/L 135 - 145 mmol/L [place] Urea nitrogen [Mass/Vol] 13 mg/dL 7 - 20 mg/dL [place] Lipaseon 09-22-2019 Lipase [Catalytic activity/Vol] 237 U/L 23 - 300 U/L [place] Otheron 09-22-2019 Test Performed by [facility] [facility], [facility] [address], [place], [place] [id number] [place] [address] CT Abdomen Pelvis W Contrast on 09-21-2019 [facility], [facility] Incoming Radiology Results From [facility] - 09/21/2019 10:51 AM EDT Patient Name: EL SMITH ---CT--- Exam Date/Time 09/21/2019 10:37:[address] Abdomen/Pelvis w/ IV Contrast (IV Onl Ordering Physician [id number] VarinderHITESH CORONA Accession Number [id number] CPT4 Codes 14837 (CT Abdomen/Pelvis w/ IV Contrast (IV Onl), Q9967 (CT ISOVUE 370MG/ML&[id number]& ML&1) Reason For Exam upper and pain, eval for stone, infectious process, pancreatitis, perforated ulcer Report CT scan of the abdomen:10/11/2019. CT scan of the pelvis:09/21/2019. Clinical Information: Abdominal pain. CT scans of the abdomen: CT scans of the abdomen were performed at 3 mm slice thickness following the administration of intravenous contrast. No oral contrast was given per request. Without the administration of oral contrast, evaluation of hollow organs is limited. Comparison was made to the prior study 07/05/2019. Limited slices through the lower lung worrell reveal no pleural or parenchymal abnormalities in the lung bases. The liver is normal in size and configuration. No mass lesions identified within the liver. There is no evidence of intrahepatic biliary dilatation. The spleen is not enlarged. The kidneys are within normal limits. No hydronephrosis is identified. No free peritoneal fluid or air is seen. No retroperitoneal lymphadenopathy is identified. There is inflammatory change of the third portion of the duodenum with slight wall thickening and surrounding mesenteric haziness. This could be related to mild enteritis or possibly related to pancreatitis in the region of the head of the pancreas. There is a small amount of fluid in the naomy hepatis as well as adjacent to the medial right kidney. The remainder of the pancreas is unremarkable. CT scans of the pelvis: CT scans of the pelvis were performed at 3 mm slice thickness with intravenous contrast enhancement from the abdominal portion of the study. No abnormal loops of bowel are otherwise identified. No other inflammatory changes in the mesentery are seen. No pelvic mass lesions, fluid collections or lymphadenopathy is seen. Impression: Study limited due to lack of oral contrast. Findings consistent with either a primary or secondary duodenitis gas described above. It may be secondary to mild pancreatitis. Correlate with clinical parameters. Report Dictated on Workstation: [email or web address] --- Final --- Dictating Physician: MD CHAMBERS RISA Signed Date and Time: 09/21/2019 10:50 am Signed by: MD CHAMBERS RISA Transcribed Date and Time: 09/21/2019 10:51 [place] Patient Name: EL SMITH ---CT--- Exam Date/Time 09/21/2019 10:37:[address] Abdomen/Pelvis w/ IV Contrast (IV Onl Ordering Physician [id number] NELSON Accession Number [id number] CPT4 Codes 27021 (CT Abdomen/Pelvis w/ IV Contrast (IV Onl), Q9967 (CT ISOVUE 370MG/ML&[id number]& ML&1) Reason For Exam upper and pain, eval for stone, infectious process, pancreatitis, perforated ulcer Report CT scan of the abdomen:10/11/2019. CT scan of the pelvis:09/21/2019. Clinical Information: Abdominal pain. CT scans of the abdomen: CT scans of the abdomen were performed at 3 mm slice thickness following the administration of intravenous contrast. No oral contrast was given per request. Without the administration of oral contrast, evaluation of hollow organs is limited. Comparison was made to the prior study 07/05/2019. Limited slices through the lower lung worrell reveal no pleural or parenchymal abnormalities in the lung bases. The liver is normal in size and configuration. No mass lesions identified within the liver. There is no evidence of intrahepatic biliary dilatation. The spleen is not enlarged. The kidneys are within normal limits. No hydronephrosis is identified. No free peritoneal fluid or air is seen. No retroperitoneal lymphadenopathy is identified. There is inflammatory change of the third portion of the duodenum with slight wall thickening and surrounding mesenteric haziness. This could be related to mild enteritis or possibly related to pancreatitis in the region of the head of the pancreas. There is a small amount of fluid in the naomy hepatis as well as adjacent to the medial right kidney. The remainder of the pancreas is unremarkable. CT scans of the pelvis: CT scans of the pelvis were performed at 3 mm slice thickness with intravenous contrast enhancement from the abdominal portion of the study. No abnormal loops of bowel are otherwise identified. No other inflammatory changes in the mesentery are seen. No pelvic mass lesions, fluid collections or lymphadenopathy is seen. Impression: Study limited due to lack of oral contrast. Findings consistent with either a primary or secondary duodenitis gas described above. It may be secondary to mild pancreatitis. Correlate with clinical parameters. Report Dictated on Workstation: [email or web address] --- Final --- Dictating Physician: MD CHAMBERS RISA Signed Date and Time: 09/21/2019 10:50 am Signed by: MD CHAMBERS RISA Transcribed Date and Time: 09/21/2019 10:51 [place] Comprehensive Metabolic Pane eduardo 09-21-2019 Albumin [Mass/Vol] 4.1 g/dL 3.5 - 5 g/dL [place] ALP [Catalytic activity/Vol] 114 U/L 38 - 126 U/L [place] ALT [Catalytic activity/Vol] 12 U/L 0 - 49 U/L [place] Comment on above: The ALT test is perf ormed by an updated assay method. Please note that the reference intervals have been changed and are now sex specific. Anion gap [Moles/Vol] 11 mmol/L [place] AST [Catalytic activity/Vol] 26 U/L 15 - 46 U/L [place] Bilirubin Ql (U) 0.7 mg/dL 0.2 - 1.3 mg/dL [place] Calcium [Mass/Vol] 8.8 mg/dL 8.4 - 10. 4 mg/dL [place] Chloride [Moles/Vol] 101 mmol/L 98 - 10 7 mmol/L [place] CO2 [Moles/Vol] 26 mmol/L 22 - 30 mmol/L [place] Creatinine [Mass/Vol] 0.78 mg/dL 0.52 - 1.25 mg/dL [place] EGFR IF NonAfrican [place] >90.0 >60 mL/min [place] Comment on above: KDIGO guidelines pro vide the following GFR categories: Stage GFR(ml/min/1.73 m2) Terms G1 >=90 Normal or high G2 60-89 Mildly decreased* G3a 45-59 Mildly to moderately decreased G3b 30-44 Moderately to severely decreased G4 15-29 Severely decreased G5 <15 Kidney failure *Relative to young adult level. In the absence of evidence of kidney damage, neither GFR category G1 nor G2 fulfill the criteria for CKD. The CKD-EPI equation is validated in individuals 18 years of age and older. Currently the best equation for estimating glomerular filtration rate (GFR) from serum creatinine in children is the Bedside Finch equation. It is less accurate in patients with extremes of muscle mass, restriction of dietary protein, ingestion of creatine, extra-renal metabolism of creatinine, or treatment with medications that affect renal tubular creatinine secretion. GFR/1.73 sq M predicted among blacks MDRD (S/P/Bld) [Vol rate/Area] mL/min/{1.73_m2} >60 mL/min [place] Glucose [Mass/Vol] 124 mg/dL High 70 - 100 mg/dL [place] Potassium [Moles/Vol] 3.5 mmol/L 3.5 - 5.1 mmol/L [place] Protein [Mass/Vol] 7.0 g/dL 6.3 - 8.2 g/dL [place] Sodium [Moles/Vol] 138 mmol/L 135 - 145 mmol/L [place] Urea nitrogen [Mass/Vol] 10 mg/dL 7 - 20 mg/dL [place] Hemogram (CBC) w/Auto Diffon 09-21-2019 Erythrocyte distribution width (RBC) [Ratio] 14.1 % 11.5 - 14.5 % [place] Hematocrit (Bld) [Volume fraction] 52.4 % High 40 - 52 % [place] Hemoglobin (Bld) [Mass/Vol] 18.3 g/dL High 13 - 18 g/dL [place] Interpretation and review of laboratory results Abnormal [place] MCH (RBC) [Entitic mass] 31.1 pg 26 - 34 pg [place] MCHC (RBC) [Mass/Vol] 34.9 % 32 - 36 % [place] MCV (RBC) [Entitic vol] 89.1 fL 80 - 98 fL [place], [place] Platelet mean volume (Bld) [Entitic vol] 6.7 fL Low 7.4 - 10.4 fL [place], [place] Platelets (Bld) [#/Vol] 436 10*3/uL 140 - 440 10*3/uL [place] RBC (Bld) [#/Vol] 5.88 10*6/uL 4.4 - 5.9 10*6/uL [place] WBC (Bld) [#/Vol] 15.2 10*3/uL High 3.6 - 10.7 10*3/uL [place] Test Performed by [facility], [address] [place], [place] [id number] [place] [address] Lactic Acid, Plasmaon 2019 Lactate [Moles/Vol] 1.9 mmol/L 0.7 - 2 mmol/L [place] Test Performed by [facility], [address] [place], [place] [id number] [place] [address] Lipaseon 09-21-2019 Lipase [Catalytic activity/Vol] 502 U/L High 23 - 300 U/L [place], [place] Manual Differentialon 2019 Absolute Baso # 0.0 10*3/uL 0 - 0.2 10*3/uL [place] Absolute Eos # 0.0 10*3/uL 0 - 0.5 10*3/uL [place] Absolute Lymph # 2.3 10*3/uL 1.1 - 4.5 10*3/uL [place] Absolute [place] # 1.1 10*3/uL 0.2 - 1.1 10*3/uL [place] Absolute Neut # 11.9 10*3/uL High 2.2 - 8.2 10*3/uL [place] Bands 0 % 0 - 3 % [facility] [place] Basophils 0 % 0 - 2 % [facility] [place] Eosinophils 0 % Low 1 - 6 % [place] Interpretation and review of laboratory results Abnormal [place] Lymphocytes 15 % Low 20 - 40 % [facility] [place] Monocytes 7 % 2 - 10 % [place] RBC morphology finding Nom (Bld) Normal [place] Seg Neutrophils 78 % 40 - 80 % [place] TOTAL CELLS COUNTED 100 [place] Test Performed by [facility], [address], [place], [place] [address] [place] Otheron 09-21-2019 Interpretation and review of laboratory results Abnormal [place] Test Performed by [facility], [address], [place], [place] [address] [place] Basic Metabolic Panelon 03-0 Anion gap [Moles/Vol] 10 mmol/L [place], [place] Calcium [Mass/Vol] 9.3 mg/dL 8.4 - 10. 4 mg/dL [place] Chloride [Moles/Vol] 100 mmol/L 98 - 10 7 mmol/L [place] CO2 [Moles/Vol] 28 mmol/L 22 - 30 mmol/L [place] Creatinine [Mass/Vol] 0.85 mg/dL 0.52 - 1.25 mg/dL [place] EGFR IF NonAfrican [place]an >60.0 >60 mL/min [place] Comment on above: Source- MDRD equatio n with creatinine calibration to IDMS(NKDEP) eGFR not recommended for drug dose adjustment GFR/1.73 sq M predicted among blacks MDRD (S/P/Bld) [Vol rate/Area] mL/min/{1.73_m2} >60 mL/min [place] Glucose [Mass/Vol] 111 mg/dL High 70 - 100 mg/dL [place] Interpretation and review of laboratory results Abnormal [place] Potassium [Moles/Vol] 3.6 mmol/L 3.5 - 5.1 mmol/L [place] Sodium [Moles/Vol] 138 mmol/L 135 - 145 mmol/L [place] Urea nitrogen [Mass/Vol] 13 mg/dL 7 - 20 mg/dL [place] Test Performed by [facility], [address] , [place], [place] [address] [place] CBC Auto Differentialon 03-0 Absolute Baso # 0.2 10*3/uL 0 - 0.2 10*3/uL [place] Absolute Neut # 9.3 10*3/uL High 1.8 - 7 10*3/uL [place] Basophils/100 WBC (Bld) 1.3 % 0 - 2 % [place] Eosinophils (Bld) [#/Vol] 0.0 10*3/uL 0 - 0.5 10*3/uL [place] Eosinophils/100 WBC (Bld) 0.3 % Low 1 - 6 % [place] Erythrocyte distribution width (RBC) [Ratio] 13.8 % 11.5 - 14.5 % [place] Granulocytes/100 WBC (Bld) 65.6 % 40 - 80 % [place] Hematocrit (Bld) [Volume fraction] 51.0 % 40 - 52 % [place] Hemoglobin (Bld) [Mass/Vol] 17.0 g/dL 13 - 18 g/dL [place] Interpretation and review of laboratory results Abnormal [place] Lymphocytes (Bld) [#/Vol] 3.7 10*3/uL 1 - 4.3 10*3/uL [place] Lymphocytes/100 WBC (Bld) 26.0 % 20 - 40 % [place] MCH (RBC) [Entitic mass] 29.7 pg 26 - 34 pg [place] MCHC (RBC) [Mass/Vol] 33.4 % 32 - 36 % [place] MCV (RBC) [Entitic vol] 88.9 fL 80 - 98 fL [place], [place] Monocytes (Bld) [#/Vol] 1.0 10*3/uL High 0 - 0.8 10*3/uL [place] Monocytes/100 WBC (Bld) 6.8 % 2 - 10 % [place] Platelet mean volume (Bld) [Entitic vol] 7.1 fL Low 7.4 - 10.4 fL [place] Platelets (Bld) [#/Vol] 420 10*3/uL 140 - 440 10*3/uL [place] RBC (Bld) [#/Vol] 5.73 10*6/uL 4.4 - 5.9 10*6/uL [place] WBC (Bld) [#/Vol] 14.2 10*3/uL High 3.6 - 10.7 10*3/uL [place] Test Performed by [facility], [address] , [address] Abdomen Pelvis Wo Contras ton 06-25-2019 [place], [facility] Incoming Radiology Results From [facility] - 06/25/2019 5:20 PM EDT Patient Name: EL SMITH ---CT--- Exam Date/Time 06/25/2019 17:00:[address] Abdomen/Pelvis (No PO, No IV) Ordering Physician MD GLENNA, BIJAN Grimm Accession Number [id number] CPT4 Codes 98039 (CT Abdomen/Pelvis (No PO, No IV)) Reason For Exam Left flank pain Report CT ABDOMEN AND PELVIS WITHOUT CONTRAST CLINICAL INDICATION: Left flank pain TECHNIQUE: CT scan of the abdomen and pelvis, without IV contrast. Multiplanar reformations. COMPARISON: None. FINDINGS: Abdomen: Solid organ evaluation limited due to lack of IV contrast. Visualized lung bases show probable dependent atelectasis. No radiopaque gallstones. A few, punctate calcifications in the right kidney and single punctate calcification in the left kidney. Subtle, rounded and partially exophytic hypodensity off the posterior aspect of right renal upper pole measuring approximately 1.2 cm. No significant hydronephrosis or abnormal perinephric fluid collection. A few, rounded subcentimeter hypodensities scattered in right and left hepatic lobes, too small to adequately characterize, but statistically suggesting cysts or hemangiomata. Remainder of abdominal parenchyma grossly unremarkable. Pelvis: No apparent calcifications or significant dilatation in the distal ureters. Bowel grossly unremarkable. Appendix within normal limits. No significant, free peritoneal fluid or apparent adenopathy. Abdominal aorta is nonaneurysmal. Axial skeleton grossly intact. IMPRESSION: 1. Punctate, nonobstructing, bilateral renal calcifications. 2. No apparent ureteral calcifications or significant hydronephrosis. 3. Right renal hypodensity possibly representing cyst(s), but nonspecific. Correlation with renal ultrasound may be confirmatory, as clinically indicated. 4. Hepatic hypodensities possibly representing cysts versus hemangiomata, but nonspecific. Correlation with liver ultrasound may be confirmatory, as clinically indicated. Report Dictated on Workstation: [id number] --- Final --- Dictating Physician: MD TRINH WENDELL Signed Date and Time: 06/25/2019 5:19 pm Signed by: MD TRINH WENDELL Transcribed Date and Time: 06/25/2019 5:20 [place], [place] Patient Name: EL SMITH ---CT--- Exam Date/Time 06/25/2019 17:00:[address] Abdomen/Pelvis (No PO, No IV) Ordering Physician MD MANZANARES GREGORY M Accession Number [id number] CPT4 Codes 39847 (CT Abdomen/Pelvis (No PO, No IV)) Reason For Exam Left flank pain Report CT ABDOMEN AND PELVIS WITHOUT CONTRAST CLINICAL INDICATION: Left flank pain TECHNIQUE: CT scan of the abdomen and pelvis, without IV contrast. Multiplanar reformations. COMPARISON: None. FINDINGS: Abdomen: Solid organ evaluation limited due to lack of IV contrast. Visualized lung bases show probable dependent atelectasis. No radiopaque gallstones. A few, punctate calcifications in the right kidney and single punctate calcification in the left kidney. Subtle, rounded and partially exophytic hypodensity off the posterior aspect of right renal upper pole measuring approximately 1.2 cm. No significant hydronephrosis or abnormal perinephric fluid collection. A few, rounded subcentimeter hypodensities scattered in right and left hepatic lobes, too small to adequately characterize, but statistically suggesting cysts or hemangiomata. Remainder of abdominal parenchyma grossly unremarkable. Pelvis: No apparent calcifications or significant dilatation in the distal ureters. Bowel grossly unremarkable. Appendix within normal limits. No significant, free peritoneal fluid or apparent adenopathy. Abdominal aorta is nonaneurysmal. Axial skeleton grossly intact. IMPRESSION: 1. Punctate, nonobstructing, bilateral renal calcifications. 2. No apparent ureteral calcifications or significant hydronephrosis. 3. Right renal hypodensity possibly representing cyst(s), but nonspecific. Correlation with renal ultrasound may be confirmatory, as clinically indicated. 4. Hepatic hypodensities possibly representing cysts versus hemangiomata, but nonspecific. Correlation with liver ultrasound may be confirmatory, as clinically indicated. Report Dictated on Workstation: [id number] --- Final --- Dictating Physician: MD TRINH WENDELL Signed Date and Time: 06/25/2019 5:19 pm Signed by: MD TRINH WENDELL Transcribed Date and Time: 06/25/2019 5:20 [facility] [place] Urinalysison 06-25-2019 Appearance (U) Clear Clear NA [facility] [place] Bilirubin Urine Negative Negative mg/dL [facility] [place] Color (U) LIGHT ORANGE Lt. Yellow NA [facility] [place] Glucose, Ur Normal Normal (<70) mg/dL [facility] [place] Ketones Ql (U) Negative Negative mg/dL [facility] [place] LEUKOCYTES, UA Negative Negative Soren/uL [facility] [place] Mucous Threads Few Negative /[LPF] [facility] [place] Nitrite, Urine Negative Negative NA [facility] [place] Occult Blood,Urine Negative Negative mg/dL [place] pH (U) 6.0 [pH] [facility] [place] Protein (U) [Mass/Vol] 70 mg/dL Negative Me [facility] [place] [facility] RBC (U) [#/Vol] 0-2 0 - 2 /[HPF] [place] Specific [place], Urine >1.030 [place] Urobilinogen, Urine 4 mg/dL Normal (0-1) [facility], [place] Volume 12 ml [place] WBC, UA 0-2 0 - 5 /[HPF] [place] Test Performed by [employer] [facility], [facility] , [address] ANES Radhames 12-14-2018 ANES POST HNO ID: [id number] Author: Yaz (Odessa Griffin Service: Anesthesiology Author Type: Resident Type: Anesthesia PostOp Filed: 12/14/2018 1:38 PM Note Text: POST ANESTHESIA EVALUATION NOTE SERVICE DATE: 12/14/2018 SERVICE TIME: 1:38 PM : 1980 Vitals: 12/14/18 1051 12/14/18 1213 Temp: 36.3 ?C (97.3 ?F) 36.3 ?C (97.3 ?F) 12/14/18 1051 12/14/18 1213 12/14/18 1230 12/14/18 1245 BP: 132/82 123/84 127/90 140/96 12/14/18 1051 12/14/18 1213 12/14/18 1230 12/14/18 1245 Pulse: 87 85 81 77 12/14/18 1051 12/14/18 1213 12/14/18 1230 12/14/18 1245 Resp: 16 20 16 16 12/14/18 1051 12/14/18 1213 12/14/18 1230 12/14/18 1245 SpO2: 99% 97% 100% 100% Validated Vital Signs: Yes POST ANES STATUS: No apparent anesthetic complications. The patient is appropriately hydrated with stable respiratory and cardiovascular status. Patient has safe and adequate airway control. The patient has appropriate pain relief and no significant post operative nausea or vomiting. The patient has achieved baseline mental status. Intra-Operative Events: No Significant Anesthesia Events Further assessment by Anesthesia Service: None Other Remarks: SIGNATURE: Yaz Griffin DO PATIENT NAME: El Smith DATE: December 14, 2018 TIME: 1:38 PM PAGER/CONTACT #: [phone] [facility] ANES PREOPon 12-14-2018 ANES PREOP HNO ID: [id number] Author: José Miguel Levi Service: Anesthesiology Author Type: Anesthesiologist Type: Anesthesia PreOp Filed: 12/14/2018 10:43 AM Note Text: REGIONAL ANESTHESIOLOGY DAY OF SURGERY NOTE PATIENT NAME: El Smith : 1980 Procedure(s) (LRB): EGD (N/A) Surgeon(s): Naila Everett Estimated body mass index is 23.75 kg/m? as calculated from the following: Height as of 12/05/18: 177.8 cm (5' 10). Weight as of 12/05/18: 75.1 kg (165 lb 8 oz). Most recent hematocrit and potassium results: Hematocrit 55.1 12/05/2018 Potassium 3.9 12/05/2018 38M here for EGD d/t Adb Pain. PMHx: Substance abuse Vitals: There were no vitals filed for this visit. 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, Lumbar Distal Radius Fracture Left Upper Quadrant Pain Gastroenteritis Marijuana Abuse Nicotine Use Disorder Dilated Bile Duct Cyst of Right Kidney PAST MEDICAL HISTORY Diagnosis Date - Anxiety - Lumbar dysfunction PAST SURGICAL HISTORY Procedure Laterality Date - PAST SURGICAL HISTORY OF wisdom teeth removed - PAST SURGICAL HISTORY OF right hand surgery - WRIST SURGERY HX Left FAMILY HISTORY Problem Relation Age of Onset - Arthritis Mother psoriatic - Diabetes Father Social History: Social History Tobacco Use - Smoking status: Current Every Day Smoker Packs/day: 1.50 Years: 20.00 Pack years: 30.00 Types: Cigarettes - Smokeless tobacco: Never Used Substance Use Topics - Alcohol use: Yes Alcohol/week: 2.5 standard drinks Types: 1 Cans of Beer (12oz) per week Comment: social - Drug use: Yes Frequency: 1.0 times per week Types: Marijuana Comment: 3.5 grams per weekend No current facility-administered medications on file prior to encounter. Current Outpatient Medications on File Prior to Encounter: HYDROcodone-Acetamino phen (NORCO) 10-325 mg per tablet 1 tablet as needed ondansetron orally disintegrating (ZOFRAN ODT) 4 mg disintegrating tablet Take 1 tablet by mouth every 8 hours as needed. amLODIPine (NORVASC) 5 mg tablet Take 1 tablet by mouth once daily. Omeprazole 40 mg capsule Take 1 capsule by mouth daily before breakfast. acetaminophen (TYLENOL) 325 mg tablet Take 2 tablets by mouth every 6 hours as needed for Pain. No current facility-administered medications for this encounter. Allergies: ALLERGIES Allergen Reactions - Other Rash Metals- rash-- Nickel Adequate NPO Status: Yes Anesthetic Risks, Benefits, Alternatives, Personnel and Consent Discussed: No: Consent by Surgical service, ICU or Primary service Patient agrees to proceed: Yes per patient or per patient's parent/guardian Previous Anesthesia: No history of adverse event Airway Assessment: MP 1; Neck ROM: Full ROM without neurologic symptoms; Airway Evaluation: Davis Present Symptoms of Sleep Apnea: none Dentition: Poor dentition Multiple missing teeth Additional Physical Exam: Lungs: Patient health status unchanged since recent history and physical. See history and physical for exam findings. Cardiac: Patient health status unchanged since recent history and physical. See history and physical for exam findings. Additional Pertinent Findings: N/A Blood Products: Not anticipated for this procedure Anesthetic Plan: MAC with general as back up Anesthetic Monitoring: Standard ASA Monitors Pain Management Plan: Parenteral or Oral ASA Class: 2 Other Medical Problems: None Chronic Beta Viry medication administered within 24 hours: N/A I have interviewed and examined the patient. I have reviewed the medical record and/or the pre-anesthesia evaluation, pertinent labs, and test results. Significant changes in the patient's condition since the History and Physical, not otherwise documented in primary service progress notes: No This contains updated information obtained within 48 hours of Surgery/Procedure. SIGNATURE: José Miguel Levi, DATE: December 14, 2018 TIME: 10:42 AM [facility] HISTORY PHYSICALon HISTORY PHYSICAL HNO ID: [id number] Author: Nate Reich (Pa) Service: Gastroenterology Author Type: Physician Clinical Business Analyst Type: HANDP Filed: 12/14/2018 10:53 AM Note Text: UPDATED HISTORY AND PHYSICAL EXAMINATION SERVICE DATE: 12/14/2018 SERVICE TIME: 9:09 AM SERVICE: Gastroenterology, Service of Dr. Everett PHYSICAL EXAM MUST BE COMPLETED ON ADMISSION The History and Physical (completed in the past 30 days) has been reviewed and the patient has been examined. The contents accurately reflect the patient's condition with the following additions or revisions since the HANDP was completed. Patient denies any changes to health since last examination. Planned procedure for today is EGD PAST MEDICAL HISTORY Diagnosis Date - Anxiety - Lumbar dysfunction Medication reconciliation list reviewed in [facility]. Past medical history, past surgical history, social history and family history reviewed and updated in [facility]. ALLERGIES Allergen Reactions - Other Rash Metals- rash-- Nickel Vitals: Temp: 36.1 RR: 16 HR: 87 BP: 132/82 SpO2: 99%, on RA Examination indicates no changes. On examination today: Lungs: Clear to auscultation bilaterally. Heart: RRR, Normal S1/S2, No murmurs, rubs, gallops or thrills appreciated. Abdomen: BS+ in all quadrants, abdomen is soft, non tender, and without guarding. Assessment: Epigastric burning sensation, RUQ Abdominal pain, GERD, Esophagitis, Vomiting, Nausea Plan: EGD This HANDP can be found in the Electronic Medical Record dated 12/05/18, by Naila Everett MD. SIGNATURE: Nate Reich PA-C PATIENT NAME: El Smith DATE: December 14, 2018 TIME: 9:09 AM [facility] PT EDon 12-14-2018 PT ED HNO ID: [id number] Author: Lucian (Rn) DESIREE Krishna Service: Nursing Author Type: Registered Nurse Type: Patient Education Filed: 12/14/2018 10:55 AM Note Text: PATIENT EDUCATION TOPIC: PROCEDURE / SURGERY: Pre-op Teaching: Logistics Protocols PATIENT NAME: El Smith PATIENT [facility]ATION: [facility] READINESS TO LEARN COGNITIVE ABILITY: Alert and oriented MOTIVATION TO LEARN: Eager FAMILY SUPPORT: High - Very involved in pt care INSTRUCTION PROVIDED TO: Patient PATIENT LEARNS BEST BY: Individual Instruction FACTORS AFFECTING LEARNING: None PHYSICAL LIMITATIONS AFFECTING LEARNING: None LEARNING RESPONSE DIAGNOSIS: ADULT: egd PATIENT/FAMILY RESPONSE: Verbalizes understanding of: PRE-PROCEDURE INSTRUCTIONS-Correct action to take to follow pre-procedure instructions METHOD OF INSTRUCTION: Individual instruction FOLLOW-UP PLAN: Reinforce - Repeat previous content INSTRUCTIONAL AIDS USED: NA SUPPLEMENTAL MATERIAL PROVIDED TO PATIENT: None REFERRAL (RECOMMENDATION): None Electronically Signed By: Lucian Krishna RN [facility] SURGICAL PATHOLOGYon 019 SURGICAL PATHOLOGY Specimen originated from [facility] Specimen #: [id number] Submitting Physician: NAILA EVERETT FINAL DIAGNOSIS 1. Stomach, antrum, biopsy (A) - Helicobacter pylori gastritis. 2. Stomach, fundus, biopsy (B) - Helicobacter pylori gastritis. 3. Esophagus, biopsy at 30 cm (C) - Squamous mucosa with reactive epithelial changes and patchy intraepithelial lymphocytosis (see comment). JEL/klabdelrahman 12/15/2018 COMMENT 3. Epithelial lymphocytosis is a nonspecific histologic finding but is within the spectrum of usual findings in gastroesophageal reflux. However, the differential diagnosis also includes squamous mucosal changes associated with stasis (which can be seen with achalasia and pseudoachalasia), so-called contact mucositis, and entities in the differential of lichenoid (interface) mucositis such as lichenoid drug eruptions, connective tissue disease, erythema multiforme, and lichen planus. Correlation with clinical and endoscopic findings is recommended. No necrotic keratinocytes are identified. Histologic changes of eosinophilic esophagitis are not seen. Estefani Fall M.D. (Electronic Signature) ____ SPECIMEN SUBMITTED A: ANTRAL, BIOPSIES B: FUNDAL, BIOPSIES C: ESOPHAGEAL, BIOPSIES AT 30 CM CLINICAL DATA ABDOMINAL PAIN A-B) R/O H. PYLORI C) R/O EOE GROSS DESCRIPTION A. Received in formalin are two pieces of walls, soft tissue aggregating to 0.7 x 0.2 x 0.1 cm. Totally submitted in one cassette. B. Received in formalin are multiple pieces of walls, soft tissue aggregating to 0.8 x 0.2 x 0.2 cm. Totally submitted in one cassette. C. Received in formalin are two pieces of walls, soft tissue aggregating to 0.5 x 0.2 x 0.1 cm. Totally submitted in one cassette. Gross examination performed at [facility], [address] [place] [address] 12/14/2018 3:35:25 PM Date of Report: 12/15/2018 Date of Procedure: 12/14/2018 Date of Receipt: 12/14/2018 Submitted by: NAILA EVERETT Location: [facility] Diagnostic interpretation performed at [facility], [address] [place] [address]. CLIA Number: [id number] [facility] HOSPon 12-08-2018 HOSP Patient:Cait Smith i MRN: Height:5' 10(1.778 m) Weight:165 lb 8 oz (75.07 kg) Outpatient Medications as of 12/14/18: HYDROcodone-Acetamino phen (NORCO) 10-325 mg per tablet ondansetron orally disintegrating (ZOFRAN ODT) 4 mg disintegrating tablet amLODIPine (NORVASC) 5 mg tablet Omeprazole 40 mg capsule acetaminophen (TYLENOL) 325 mg tablet Admission/Clinic Administered Medications as of 12/14/18: Patient has no admission medications. 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 Patient instructed on diet and medication regimen. Patient verbalized understanding of all instructions and will call with any questions. Gerda Kohli RN spoke to patient Progress Notes ([facility]): Sonali Shabazz RN 12/05/2018 3:02 PM Signed NAME: El Smith AGE: [age] year old Referred by: SELF Referred for: an opinion regarding abdominal pain and my final recommendations will be communicated back to the requesting physician by way of phone call. GENERAL ROS: Colon polyps: Yes Colon cancer: No Other cancer: No Radiation / Chemotherapy: No Crohn's disease / Ulcerative colitis: No High cholesterol or triglycerides: No Ulcers: Yes Gallstones: No Hepatitis / jaundice: No Heart Disease: No Lung Disease: No Liver problems:No Thyroid disease: No Kidney stones: No Pancreatitis: No Diabetes: No Arthritis: Yes Rheumatic fever:No Gastrointestinal bleeding: Yes Depression or other mental illness:Yes. History of anxiety. Other personal illness:no FAMILY HISTORY: Liver problems: No Colitis: No Colon cancer:No Other cancers: Yes. Brother with non hodgkin's lymphoma. PAST SURGICAL HISTORY Procedure Laterality Date - PAST SURGICAL HISTORY OF wisdom teeth removed - PAST SURGICAL HISTORY OF right hand surgery - WRIST SURGERY HX Left GI SPECIFIC ROS: Difficulty swallowing / foods sticking in throat:Yes Heartburn:Yes Hoarseness: Yes Chronic cough: Yes Regurgitation: No Chest pain: {No Filling up quickly at meals: Yes Loss of appetite:Yes Nausea: Yes Vomiting: Yes Abdominal pain:Yes Recent change in bowel movements: Yes Bloody or black, bowel movements: No Constipation: No Diarrhea: {Yes Loss of control of bowel movements: No Night sweats, fever, chills: Yes Thought or memory problems: No Fluid in abdomen (ascites):No Prominent leg swelling:Yes Vomiting blood: Yes. States has had flecks of blood in emesis for about 3 weeks. Recent change in weight: Yes Lost 10 to 15 pounds in last 3 weeks. CURRENT MEDICATIONS: Current Outpatient Medications: ondansetron orally disintegrating (ZOFRAN ODT) 4 mg disintegrating tablet Take 1 tablet by mouth every 8 hours as needed. acetaminophen (TYLENOL) 325 mg tablet Take 2 tablets by mouth every 6 hours as needed for Pain. HYDROcodone-Acetamino phen (NORCO) 10-325 mg per tablet 1 tablet as needed amLODIPine (NORVASC) 5 mg tablet Take 1 tablet by mouth once daily. No current facility-administered medications for this visit. ALLERGIES: Other PERSONAL HABITS: Tobacco: Yes, How Many? Smoking 1 and 1/2 pack per day Alcohol: Yes, How Many? 6 pack of beer on a week end. Coffee: No The above documentation completed by Sonail Shabazz RN I agree with the Chief Complaint, ROS, and Past Histories independently gathered by the clinical applications support lead and the remaining scribed note accurately describes my personal service to the patient. Naila Everett MD ------ PRESENTING COMPLAINT AND HISTORY: Patient presents with: New Patient: common bile duct dilitation History: The patient was in his usual state of health until approximately 3 weeks ago when he began to develop nausea and vomiting. Currently he awakens every morning with a bile emesis. Patient was in significant heartburn which is significant when he awakens in the morning. He notes some oropharyngeal dysphagia to solids. There is no clear history of esophageal dysphagia to solids. He always feels as if he has a lump in his throat. No significant history of hematemesis. He complains of significant epigastric burning with right and left upper quadrant pains. Patient told that he had a bleeding ulcer when he was living in [place] 3-4 years ago. He takes ibuprofen OTC 3 times daily. He is not taking any PPIs. No history of cholelithiasis, hepatic and pancreatic disease. His commom bile duct size is noted above. No history of hepatic or pancreatic disease. He may have a bowel movement once every few days or he may have multiple loose bowel movements in a particular day. He continues to smoke one half pack cigarettes per day. IMPRESSION: Stable exam compared to prior with nonspecific CBD prominence without identifiable cause. Overall no evidence of acute intra-abdominal process. Transcribed Using Voice Recognition Transcribe Date/Time: Dec 05 2018 12:05P Dictated by: NADINE SO MD This examination was interpreted and the report reviewed and electronically signed by: NADINE SO MD on Dec 05 2018 12:16PM ?EST Results-Findings * * *Final Report* * * DATE OF EXAM: Dec 05 2018 11:57AM ? HCC ? 0530 ?- ?CT ABD/PEL W IVCON ?/ PROCEDURE REASON: RUQ pain, no fever, no elev WBC, US shows gallstones only ?? ? * * * * Physician Interpretation * * * * RESULT: EXAMINATION: ?CT ABDOMEN AND PELVIS WITH IV CONTRAST CLINICAL HISTORY: RUQ pain, no fever, no elev WBC, US shows gallstones only ABDO PAIN, NAUSEA, VOMITING, ELEVATED BP TECHNIQUE: CT of the abdomen and pelvis was performed using standard technique, scanning from just above the dome of the diaphragm to the symphysis pubis. MQ: ?CTAP_3 Contrast: IV: ?150 ml of Omnipaque 300 Oral: ?600 ml of 50ML Omnipaque [address] Radiation dose: Integrated Dose-length product (DLP) for this visit = ? 417 mGy*cm. CT Dose Reduction Employed: Automated exposure control(AEC) and iterative recon COMPARISON: CT abdomen 11/22/2018 RESULT: Liver: Multiple cysts and several other tiny hypodense lesions that likely also represent cysts are stable. Biliary: Gallbladder unremarkable and not grossly distended. CBD measures 1.2 cm proximally similar to prior, with gradual tapering and no evidence of radiopaque stone. No intrahepatic biliary dilatation. Spleen: No mass. No splenomegaly. Pancreas: No mass or duct dilation. Adrenals: No mass. Kidneys: Stable upper pole right renal cyst. No hydronephrosis. GI tract: Stomach is decompressed limiting its evaluation. No bowel dilation or wall thickening. Appendix normal. Lymph nodes: No abdominal or pelvic lymphadenopathy. Mesentery/Peritoneum: No ascites or mass. Vasculature: ?Abdominal aorta normal in caliber with patent celiac axis and SMA. Pelvis: No mass, ascites or fluid collection. Bones/Soft Tissues: Degenerative spine changes. Lower thorax: No acute finding. Patient seen in the ER today and since heart rate and blood pressure were elevated and his private physician's office. Smoking marijuana be consistent to help improve his nausea and vomiting. PG sixpack of beer twice monthly. The patient lifts 50 pound objects at work. Labs are remarkable for: Component Latest Ref Rng AND Units 12/05/2018 WBC 3.70 - 11.00 k/uL 11.58 (H) RBC 4.20 - 6.00 m/uL 6.17 (H) Hemoglobin 13.0 - 17.0 g/dL 19.3 (H) Hematocrit 39.0 - 51.0 % 55.1 (H) MCV 80.0 - 100.0 fL 89.3 MCH 26.0 - 34.0 pG 31.3 MCHC 30.5 - 36.0 g/dL 35.0 RDW-CV 11.5 - 15.0 % 13.8 Platelet Count 150 - 400 k/uL 512 (H) MPV 9.0 - 12.7 fL 9.3 Neut% % 64.4 Abs Neut (ANC) 1.45 - 7.50 k/uL 7.44 Lymph% % 24.4 Abs Lymph 1.00 - 4.00 k/uL 2.83 [place]% % 9.8 Abs [place] <0.87 k/uL 1.14 (H) Eosin% % 0.4 Abs Eosin <0.46 k/uL 0.05 Baso% % 1.0 Abs Baso <0.11 k/uL 0.12 (H) Diff Type Auto Diff Protein, Total 6.3 - 8.0 g/dL 8.5 (H) Albumin 3.9 - 4.9 g/dL 4.7 Calcium 8.5 - 10.2 mg/dL 10.0 Bilirubin, Total 0.2 - 1.3 mg/dL 0.9 Alkaline Phosphatase 38 - 113 U/L 94 AST 14 - 40 U/L 21 Glucose 74 - 99 mg/dL 96 BUN 9 - 24 mg/dL 15 Creatinine 0.73 - 1.22 mg/dL 0.79 Sodium 136 - 144 mmol/L 141 Potassium 3.7 - 5.1 mmol/L 3.9 Chloride 97 - 105 mmol/L 100 CO2 22 - 33 mmol/L 25 Anion Gap 9 - 18 mmol/L 16 ALT 10 - 54 U/L 9 (L) eGFR- >60 eGFR-All Other Races . >60 Lipase 16 - 61 U/L 15 (L) Magnesium 1.7 - 2.3 mg/dL 1.8 Troponin T 0.000 - 0.029 ng/mL <0.010 Lactate 0.5 - 2.2 mmol/L 1.3 PHYSICAL EXAMINATION: General Appearance: Cooperative, in no acute distress, alert. Eyes: Conjunctivas/corneas clear. Oropharynx: Lips, tongue, and oral mucosa normal. Thyroid: No goiter. Lungs: Lungs clear to auscultation, no wheezing or rhonchi. Heart: RRR without murmur, gallop or rubs. Abdomen: Bowel sounds normal. Soft and non-tender. No masses or organomegaly. Extremities: Normal, with no deformities or edema. Skin: No rashes or lesions. Lymph:No cervical or supraclavicular, or inguinal adenopathy. Pulses: normal Bruits: No. Joints: No deformity. Good range of motion. IMPRESSION: Nausea and vomiting-rule out esophagitis/peptic ulcer disease. Rule out H. pylori?rule out NSAID gastropathy/duodenopa thy Dilated common bile duct at 12 mm with progressive taper proximal to the distal common bile duct was normal LFTs Common bile duct stone less likely. However I do feel that we should perform an MRCP to rule out any possibility of colon cholelithiasis Normal LFT's Hemoglobin level-rule out secondary to discontinue smoking PLAN: EGD with MAC 12/14/2018. MRCP Avoid NSAIDS Prilosec 40 mg by mouth daily STAFF PHYSICIAN Naila Everett MD Previous [facility] HNO ID: [id number] Author: Papa Sorto (Tech) Service: Radiology Author Type: Dough Panner Type: Allied Health Filed: 12/05/2018 12:15 PM Note Text: Radiology Service Progress Note DATE OF SERVICE: December 05, 2018 TIME: 12:15 PM PATIENT IDENTITY VERIFICATION COMPLETED USING TWO (2) METHODS: Patient confirmed name verbally and ID band matches.. PATIENT GENDER DATA: Male PATIENT RELEVANT IMPLANT DATA REVIEWED: Not Applicable ALLERGIES: Reviewed and unchanged CONTRAST ALLERGY: NO. EXAM: CT -CONTRAST INDUCED NEPHROPATHY RISK FACTORS: Patient age > 60 years CREATININE: Creatinine Date Value Ref Range Status 12/05/2018 0.79 0.73 - 1.22 mg/dL Final 11/23/2018 0.86 0.73 - 1.22 mg/dL Final 11/22/2018 0.79 0.73 - 1.22 mg/dL Final eGFR-All Other Races Date Value Ref Range Status 12/05/2018 >60 . Final Comment: eGFR (Estimated GFR) Units of measure: mL/min/1.73 meters squared eGFR is derived from the reexpressed MDRD Study equation using the following parameters: serum creatinine, age, gender and race. The creatinine assay has been calibrated to be traceable to IDMS. An eGFR <60 mL/min/1.73m2 for >3 months is consistent with chronic kidney disease. Refer to KDOQI guidelines for clinical interpretation. In patients with unstable renal function, e.g. those with acute kidney injury, the eGFR may not accurately reflect actual GFR. eGFR- Date Value Ref Range Status 12/05/2018 >60 Final P.O.C.T. RESULTS: N/A December 05, 2018 TREATMENT: N/A PERIPHERAL IV DATA: Inpatient - refer to LDA documentation RADIOLOGY DEPARTMENT: CT; Exam(s) Completed: Abdomen/Pelvis SIGNATURE: Papa Sorto PATIENT NAME: El Smith DATE: December 05, 2018 TIME: 12:15 PM Normal [facility] ALLIED HEALTH HNO ID: [id number] Author: Lisa MahanRtPapa Live Service: ? Author Type: Dough Panner Type: Allied Health Filed: 12/05/2018 10:06 AM Note Text: Radiology Service Progress Note PATIENT NAME: El Smith DATE OF SERVICE: December 05, 2018 TIME: 10:06 AM PATIENT IDENTITY VERIFICATION COMPLETED USING TWO (2) METHODS: Patient confirmed name verbally and ID band matches.. PATIENT GENDER DATA: Male PATIENT RELEVANT IMPLANT DATA REVIEWED: Yes RADIOLOGY DEPARTMENT: General X-ray: Exam(s) Completed: Chest X-Ray PERIPHERAL IV DATA: Not applicable SIGNED BY: RT Kathy December 05, 2018 10:06 AM [facility] CBC and Differentialon 12-05 Abs Baso 0.12 k/uL High <0.11 [facility] Abs [place] 1.14 k/uL High <0.87 [facility] Abs Neut 7.44 k/uL Normal 1.45-7.50 [facility] Basophils/100 WBC (Bld) 1.0 % Normal [facility] DTYPE Auto Diff Normal [facility] Eosinophils (Bld) [#/Vol] 0.05 10*3/uL Normal <0.46 [facility] Eosinophils/100 WBC (Bld) 0.4 % Normal [facility] Erythrocyte distribution width (RBC) [Ratio] 13.8 % Normal 11.5-15.0 [facility] Hematocrit (Bld) [Volume fraction] 55.1 % High 39.0-51.0 [facility] Hemoglobin (Bld) [Mass/Vol] 19.3 g/dL High 13.0-17.0 [facility] Lymphocytes (Bld) [#/Vol] 2.83 10*3/uL Normal 1.00-4.00 [facility] Lymphocytes/100 WBC (Bld) 24.4 % Normal [facility] MCH (RBC) [Entitic mass] 31.3 pG Normal 26.0-34.0 [facility] MCHC (RBC) [Mass/Vol] 35.0 g/dL Normal 30.5-36.0 [facility] MCV (RBC) [Entitic vol] 89.3 fL Normal 80.0-100.0 [facility] Monocytes/100 WBC (Bld) 9.8 % Normal [facility] Neutrophils/100 WBC (Bld) 64.4 % Normal [facility] Platelet mean volume (Bld) [Entitic vol] 9.3 fL Normal 9.0-12.7 [facility] Platelets (Bld) [#/Vol] 512 10*3/uL High 150-400 [facility] RBC (Bld) [#/Vol] 6.17 10*6/uL High 4.20-6.00 [facility] WBC (Bld) [#/Vol] 11.58 10*3/uL High 3.70-11.00 [facility] CT ABD/PEL W IVCONon 019 CT ABD/PEL W IVCON * * *Final Report* * * DATE OF EXAM: Dec 05 2018 11:57AM [facility] 0530 - CT ABD/PEL W IVCON / PROCEDURE REASON: RUQ pain, no fever, no elev WBC, US shows gallstones only * * * * Physician Interpretation * * * * RESULT: EXAMINATION: CT ABDOMEN AND PELVIS WITH IV CONTRAST CLINICAL HISTORY: RUQ pain, no fever, no elev WBC, US shows gallstones only ABDO PAIN, NAUSEA, VOMITING, ELEVATED BP TECHNIQUE: CT of the abdomen and pelvis was performed using standard technique, scanning from just above the dome of the diaphragm to the symphysis pubis. MQ: CTAP_3 Contrast: IV: 150 ml of Omnipaque 300 Oral: 600 ml of 50ML Omnipaque [address] Radiation dose: Integrated Dose-length product (DLP) for this visit = 417 mGy*cm. CT Dose Reduction Employed: Automated exposure control(AEC) and iterative recon COMPARISON: CT abdomen 11/22/2018 RESULT: Liver: Multiple cysts and several other tiny hypodense lesions that likely also represent cysts are stable. Biliary: Gallbladder unremarkable and not grossly distended. CBD measures 1.2 cm proximally similar to prior, with gradual tapering and no evidence of radiopaque stone. No intrahepatic biliary dilatation. Spleen: No mass. No splenomegaly. Pancreas: No mass or duct dilation. Adrenals: No mass. Kidneys: Stable upper pole right renal cyst. No hydronephrosis. GI tract: Stomach is decompressed limiting its evaluation. No bowel dilation or wall thickening. Appendix normal. Lymph nodes: No abdominal or pelvic lymphadenopathy. Mesentery/Peritoneum: No ascites or mass. Vasculature: Abdominal aorta normal in caliber with patent celiac axis and SMA. Pelvis: No mass, ascites or fluid collection. Bones/Soft Tissues: Degenerative spine changes. Lower thorax: No acute finding. IMPRESSION: Stable exam compared to prior with nonspecific CBD prominence without identifiable cause. Overall no evidence of acute intra-abdominal process. Transcribed Using Voice Recognition Transcribe Date/Time: Dec 05 2018 12:05P Dictated by: NADINE SO MD This examination was interpreted and the report reviewed and electronically signed by: NADINE SO MD on Dec 05 2018 12:16PM EST [id number] Normal [facility] Comp Metabolic Panelon 12-05 Albumin [Mass/Vol] 4.7 g/dL Normal 3.9-4.9 [facility] ALP [Catalytic activity/Vol] 94 U/L Normal 38-113 [facility] ALT [Catalytic activity/Vol] 9 U/L Low 10-54 [facility] Comment on above: Result Comment: Resu lts may be falsely increased due to interference by hemolysis. Suggest reorder as clinically indicated. Anion gap [Moles/Vol] 16 mmol/L Normal 9-18 [facility] AST [Catalytic activity/Vol] 21 U/L Normal 14-40 [facility] Comment on above: Result Comment: Resu lts may be falsely increased due to interference by hemolysis. Suggest reorder as clinically indicated. Bilirubin [Mass/Vol] 0.9 mg/dL Normal 0.2-1.3 [facility] Calcium [Mass/Vol] 10.0 mg/dL Normal 8.5-10.2 [facility] Chloride [Moles/Vol] 100 mmol/L Normal 97-105 [facility] CO2 [Moles/Vol] 25 mmol/L Normal 22-33 [facility] Creatinine [Mass/Vol] 0.79 mg/dL Normal 0.73-1.22 [facility] eGFR- Amer. >60 Normal [facility] GFR/1.73 sq M predicted among non-blacks MDRD (S/P/Bld) [Vol rate/Area] mL/min/{1.73_m2} Normal [facility] Comment on above: Result Comment: eGFR (Estimated GFR) Units of measure: mL/min/1.73 meters squared eGFR is derived from the reexpressed MDRD Study equation using the following parameters: serum creatinine, age, gender and race. The creatinine assay has been calibrated to be traceable to IDMS. An eGFR <60 mL/min/1.73m2 for >3 months is consistent with chronic kidney disease. Refer to KDOQI guidelines for clinical interpretation. In patients with unstable renal function, e.g. those with acute kidney injury, the eGFR may not accurately reflect actual GFR. Glucose [Mass/Vol] 96 mg/dL Normal 74-99 [facility] Potassium [Moles/Vol] 3.9 mmol/L Normal 3.7-5.1 [facility] Comment on above: Result Comment: Resu lts may be falsely increased due to interference by hemolysis. Suggest reorder as clinically indicated. Protein [Mass/Vol] 8.5 g/dL High 6.3-8.0 [facility] Sodium [Moles/Vol] 141 mmol/L Normal 136-144 [facility] Urea nitrogen [Mass/Vol] 15 mg/dL Normal 9-24 [facility] ECG COMPLETEon 12-05-2018 ECG COMPLETE NAME : EL SMITH PID : [id number] : 1980 Gender : Male Race : ORD : [id number] Procedure Date : Dec 05 2018 09:40:47 Edit Date : Dec 05 2018 13:08:03 Diagnosis:SINUS TACHYCARDIA BIATRIAL ENLARGEMENT LEFT VENTRICULAR HYPERTROPHY ABNORMAL ECG NO PREVIOUS ECGS AVAILABLE confirmed 954 Confirmed by DO TREVINO STEPHANIE ([id number]), assignment desk editor SANDEE KRUGER ([id number]) on 12/05/2018 1:07:59 PM Ventricular Rate : 110 BPM Atrial Rate : 110 BPM P-R Interval : 138 ms QRS Duration : 98 ms Q-T Interval : 338 ms QTC Calculation(Bazett) : 457 ms P [place] : 80 degrees R [place] : 75 degrees T [place] : 58 degrees Test Reason : Chest Pain Location : 26 : ER L ED Overread By : DO TREVINO STEPHANIE Edited By : SANDEE KRUGER Referred By : , Acquired by : [id number], [facility] ED NOTEon 12-05-2018 INR Coag (Bld) [Relative time] HNO ID: [id number] Author: Wilson MahanRn) DESIREE Richey Service: ? Author Type: Registered Nurse Type: ED Notes Filed: 12/05/2018 9:38 AM Note Text: Pt arrives to the ED by EMS for abd pain and n/v. Pt states this started 3 weeks for this, and today followed up with a GI doctor. Pt was advised to come into the ED d/t high BP and HR. Pt states abd pain is over upper quadrant. [facility] ED NOTE HNO ID: [id number] Author: Uriel (Eliane) Charissa Service: ? Author Type: Parking Patroller and Dough Panner Type: ED Notes Filed: 12/05/2018 9:35 AM Note Text: Bed: ED-24 Expected date: Expected time: Means of arrival: [place] Dept Comments: [facility] ED PROV NOTEon 12-05-2018 ED PROV NOTE HNO ID: [id number] Author: Salina Trevino DO Service: Emergency Medicine Author Type: Physician Type: ED Provider Notes Filed: 12/05/2018 1:05 PM Note Text: ED Provider Note Patient Name: El Smith SERVICE DATE: 12/05/18 History Patient presents with: Abdominal Pain Nausea AND Vomiting This is a 38-year-old male presents emergency department with abdominal pain in the upper abdomen that's been constant for the last 3 weeks. He was seen in [facility] admitted and found to have dilatation of the common bile duct. He was following up with gastroenterology today and was sent here for hypertension. He states his blood pressures been elevated the last several years when he comes into the office but never checks his blood pressure at home. He denies chest pain or shortness of breath, neck pain or back pain, history DVT or PE, recent travel, leg pain or swelling, numbness, weakness. Pain is in the upper abdomen nonradiating. He admits to several episodes of emesis and diarrhea per day without black or bloody stool. He's had decreased by mouth intake. He denies any recent antibiotics. He denies headache. Denies fall or injury. He describes the pain as sharp and burning. History provided by: Patient PAST MEDICAL HISTORY Diagnosis Date - Anxiety - Lumbar dysfunction PAST SURGICAL HISTORY Procedure Laterality Date - PAST SURGICAL HISTORY OF wisdom teeth removed - WRIST SURGERY HX Left FAMILY HISTORY Problem Relation Age of Onset - Arthritis Mother psoriatic - Diabetes Father Social History Tobacco Use - Smoking status: Current Every Day Smoker Packs/day: 1.50 Years: 20.00 Pack years: 30.00 Types: Cigarettes - Smokeless tobacco: Never Used Substance and Sexual Activity - Alcohol use: Yes Alcohol/week: 2.5 standard drinks Types: 1 Cans of Beer (12oz) per week - Drug use: Yes Frequency: 1.0 times per week Types: Marijuana Comment: 3.5 grams per weekend - Sexual activity: Not on file ALLERGIES Allergen Reactions - Other Rash Metals- rash-- Nickel Review of Systems Constitutional: Negative. Negative for appetite change, diaphoresis and fever. HENT: Negative. Negative for congestion, sore throat and trouble swallowing. Eyes: Negative. Negative for pain. Respiratory: Negative. Negative for cough and shortness of breath. Cardiovascular: Negative. Negative for chest pain and leg swelling. Gastrointestinal: Positive for abdominal pain, diarrhea, nausea and vomiting. Negative for blood in stool and rectal pain. Genitourinary: Negative. Negative for dysuria and hematuria. Musculoskeletal: Negative. Negative for back pain and neck pain. Skin: Negative. Negative for rash. Neurological: Negative. Negative for dizziness, syncope, speech difficulty, weakness, light-headedness, numbness and headaches. Hematological: Does not bruise/bleed easily. Psychiatric/Behaviora l: Negative. Negative for confusion. All other systems reviewed and are negative. Physical Exam BP 172/123 Pulse 120 Temp (Src) 98.4 (Oral) Resp 18 Ht 5' 10 (1.78m) Wt 167 lb (75.8kg) SpO2 97% BMI 23.96 kg/(m2). O2 Therapy: Room Air Physical Exam Constitutional: He is oriented to person, place, and time. He appears well-developed and well-nourished. No distress. Age appropriate, nontoxic. HENT: Head: Normocephalic and atraumatic. Dry mucous membranes Eyes: Pupils are equal, round, and reactive to light. Conjunctivae and EOM are normal. Neck: Normal range of motion. Neck supple. No JVD present. Cardiovascular: Normal rate, regular rhythm and normal heart sounds. Exam reveals no gallop and no friction rub. No murmur heard. DP and rad +2/4 bilaterally. Pulmonary/Chest: Effort normal and breath sounds normal. No respiratory distress. Abdominal: Soft. Bowel sounds are normal. He exhibits no distension and no mass. There is tenderness. There is no rebound and no guarding. Tenderness to palpation upper abdomen Musculoskeletal: Normal range of motion. He exhibits no edema or tenderness. Normal strength and sensation bilaterally. Neurological: He is alert and oriented to person, place, and time. No cranial nerve deficit. Follows all commands moves all extremities equally no focal neurologic deficit Skin: Skin is warm and dry. No rash noted. Psychiatric: He has a normal mood and affect. His behavior is normal. Judgment and thought content normal. Nursing note and vitals reviewed. Diagnostic Testing ED Labs Ordered and Reviewed CBC + AUTO DIFF (AK,AV,EU,FV,HL,RAHUL,MM ,SP) - Abnormal; Notable for the following components: Result Value Ref Range WBC 11.58 (*) 3.70 - 11.00 k/uL RBC 6.17 (*) 4.20 - 6.00 m/uL Hemoglobin 19.3 (*) 13.0 - 17.0 g/dL Hematocrit 55.1 (*) 39.0 - 51.0 % Platelet Count 512 (*) 150 - 400 k/uL Abs [place] 1.14 (*) <0.87 k/uL Abs Baso 0.12 (*) <0.11 k/uL All other components within normal limits COMPREHENSIVE METABOLIC PANEL (AK,AV,EU,FV,HL,RAHUL,MM ,SP) LIPASE BLOOD (AK,AV,EU,FV,HL,RAHUL,MM ,SP) MAGNESIUM BLOOD (AK,AV,EU,FV,HL,RAHUL,MM ,SP) TROPONIN T (AV,EU,FV,HL,RAHUL,MM,SP ) URINALYSIS WITH MICROSCOPIC (AK,AV,EU,FV,HL,RAHUL,MM ,SP) Procedures ED Course / Clinical Impression ED Course as of Dec 05 1302 Salina Trevino's Documentation Tue Dec 05, 2018 0958 EKG sinus tachycardia rate of 110 normal axis normal intervals normal QRS LVH biatrial enlargement normal ST-T Clinical Impressions as of Dec 05 1302 Pain of upper abdomen Abnormal CT of the abdomen Cannabis hyperemesis syndrome concurrent with and due to cannabis abuse (HCC) Vomiting and diarrhea Hypertensive urgency MDM / Disposition / Plan IV fluids morphine and Zofran given with great improvement. Toradol was given with improvement. Blood pressure did improve in the ED. Will give low-dose amlodipine but plan to close follow up with PCP. Discussed marijuana use which he does use regularly. He does feel hot showers to help his abdominal pain and nausea symptoms. The patient was DISCHARGED: Counseled patient and family regarding lab results AND radiology results AND need for follow-up. Discharged home with verbal and written instructions. They were instructed to return as needed for persistent or worsening symptoms or any new concerns. Given a prescription for the following medication(s): zofran Condition at time of disposition: improved and stable SIGNATURE: DO Salina Ernandez DO 12/05/18 1305 Normal [facility] Lactateon 12-05-2018 Lactate [Moles/Vol] 1.3 mmol/L Normal 0.5-2.2 [facility] Lipaseon 12-05-2018 Lipase [Catalytic activity/Vol] 15 U/L Low 16-61 [facility] Magnesiumon 12-05-2018 Magnesium [Mass/Vol] 1.8 mg/dL Normal 1.7-2.3 [facility] Troponin Ton 12-05-2018 Troponin T.cardiac [Mass/Vol] ug/L Normal 0.000-0.029 [facility] Comment on above: Result Comment: Resu lts may be falsely decreased due to interference by hemolysis. Suggest reorder as clinically indicated. XR CHEST 1V FRONTAL PORTon 0 12-05-2018 XR CHEST 1V FRONTAL PORT * * *Final Report* * * DATE OF EXAM: Dec 05 2018 10:05AM HCX [id number] - XR CHEST 1V FRONTAL PORT / PROCEDURE REASON: Chest pain * * * * Physician Interpretation * * * * RESULT: EXAMINATION: CHEST RADIOGRAPH (PORTABLE SINGLE VIEW AP) Exam Date/Time: 12/05/2018 10:05 AM Indication: Chest pain M: XCP_3 Comparison: None available RESULT: See impression. IMPRESSION: Lines, tubes, and devices: None. Lungs and pleura: No focal consolidation, pneumothorax, or pleural effusion. Cardiomediastinal silhouette: Normal cardiomediastinal silhouette. Other: Transcribed Using Voice Recognition Transcribe Date/Time: Dec 05 2018 10:18A Dictated by: NADINE SO MD This examination was interpreted and the report reviewed and electronically signed by: NADINE SO MD on Dec 05 2018 10:21AM EST [id number] Normal [facility] Note on 10-05-2017 [facility] Note Normal [facility] ([place]) [place] [facility] Note Normal [facility] [place]) .Auto Diffon 10-04-2017 Basophils Auto #/vol (Bld) 0.20 10 3/mcL High 0.00-0.19 [facility] ([place]) Comment on above: Performed By: #### D IFF, CBC, MORPH, BMP, GFR ####[address] [place], [place] [address] Basophils/100 WBC Auto (Bld) 1.3 % Normal 0.0-2.5 [facility] ([place]) Comment on above: Performed By: #### D IFF, CBC, MORPH, BMP, GFR ####[address] [place], [place] [address] Eosinophils 0.10 10 3/mcL Normal 0.00-0.40 [facility] ([place]) Comment on above: Performed By: #### D IFF, CBC, MORPH, BMP, GFR ####[address] [place], [place] [address] Eosinophils/100 leukocytes 0.6 % Normal 0.0-7.0 [facility] ([place]) Comment on above: Performed By: #### D IFF, CBC, MORPH, BMP, GFR ####[address] [place], [place] [address] Lymphocytes 3.20 10 3/mcL Normal 0.77-3.85 [facility] ([place]) Comment on above: Performed By: #### D IFF, CBC, MORPH, BMP, GFR ####[address] [place], [place] [address] Lymphocytes/100 leukocytes 25.6 % Normal 10.0-50.0 [facility] ([place]) Comment on above: Performed By: #### D IFF, CBC, MORPH, BMP, GFR ####[address] [place], [place] [address] Monocytes 0.90 10 3/mcL Normal 0.15-1.00 [facility] ([place]) Comment on above: Performed By: #### D IFF, CBC, MORPH, BMP, GFR ####[address] [place], [place] [address] Monocytes/100 leukocytes 7.0 % Normal 1.7-13.0 [facility] ([place]) Comment on above: Performed By: #### D IFF, CBC, MORPH, BMP, GFR ####[address] [place], [place] [address] Neutrophils/100 WBC Auto (Bld) 65.5 % Normal 37.0-80.0 [facility] ([place]) Comment on above: Performed By: #### D IFF, CBC, MORPH, BMP, GFR ####[address] [place], [place] [address] .GFRon 10-04-2017 eGFR (non-black) mL/min/{1.73_m2} Normal [facility] ([place]) Comment on above: Result Comment: GFR Population mean for , Non- Americans Ages 20-29 = 116 mL/min/1.73 sq.m. Ages 30-39 = 107 mL/min/1.73 sq.m. Ages 40-49 = 99 mL/min/1.73 sq.m. Ages 50-59 = 93 mL/min/1.73 sq.m. Ages 60-69 = 85 mL/min/1.73 sq.m. Ages 70+ = 75 mL/min/1.73 sq.m.Chronic Kidney Disease: Less than 60 mL/min/1.73 square metersEnd Stage Renal Disease: Less than 15 mL/min/1.73 square meters Performed By: #### D IFF, CBC, MORPH, BMP, GFR ####[address] [place], [place] [address] eGFR (non-black) 132 ml/min/1.73sqm Normal [facility] ([place]) Comment on above: Result Comment: GFR Population mean for , Non- Americans Ages 20-29 = 116 mL/min/1.73 sq.m. Ages 30-39 = 107 mL/min/1.73 sq.m. Ages 40-49 = 99 mL/min/1.73 sq.m. Ages 50-59 = 93 mL/min/1.73 sq.m. Ages 60-69 = 85 mL/min/1.73 sq.m. Ages 70+ = 75 mL/min/1.73 sq.m.Chronic Kidney Disease: Less than 60 mL/min/1.73 square metersEnd Stage Renal Disease: Less than 15 mL/min/1.73 square meters Performed By: #### D IFF, CBC, MORPH, BMP, GFR ####[address] [place], [place] [address] .NEUABSon 10-04-2017 Neutrophils 8.20 10 3/mcL High 2.85-6.16 [facility] ([place]) Comment on above: Performed By: #### D IFF, CBC, MORPH, BMP, GFR ####[address] [place], [place] [address] .Urinalysis Microscopic (AO) on 10-04-2017 UA Squam Epithelial None Seen Normal None Seen [facility] ([place]) Comment on above: Performed By: #### D IFF, CBC, MORPH, BMP, GFR ####[address] [place], [place] [address] UA WBC None Seen Normal None Seen [facility] ([place]) Comment on above: Performed By: #### D IFF, CBC, MORPH, BMP, GFR ####[address] [place], [place] [address] Urine, erythrocytes None Seen Normal None Seen [facility] ([place]) Comment on above: Performed By: #### D IFF, CBC, MORPH, BMP, GFR ####[address] [place], [place] [address] BMPon 10-04-2017 BUN/Creatinine Ratio 10 ratio Normal 7-27 [facility] ([place]) Comment on above: Performed By: #### D IFF, CBC, MORPH, BMP, GFR ####[address] [place], [place] [address] Calcium 9.7 mg/dL Normal 8.4-10.2 [facility] ([place]) Comment on above: Performed By: #### D IFF, CBC, MORPH, BMP, GFR ####[address] [place], [place] [address] CO2 27 mmol/L Normal 22-29 [facility] ([place]) Comment on above: Performed By: #### D IFF, CBC, MORPH, BMP, GFR ####[address] [place], [place] [address] Creatinine 0.8 mg/dL Normal 0.6-1.2 [facility] ([place]) Comment on above: Performed By: #### D IFF, CBC, MORPH, BMP, GFR ####[address] [place], [place] [address] Electrolyte Balance 14.0 mEq/L Normal [facility] ([place]) Comment on above: Performed By: #### D IFF, CBC, MORPH, BMP, GFR ####[address] [place], [place] [address] Glucose mass conc 119 mg/dL High 70-105 [facility] ([place]) Comment on above: Performed By: #### D IFF, CBC, MORPH, BMP, GFR ####[address] [place], [place] [address] Urea nitrogen 8.2 mg/dL Normal 7.0-18.0 [facility] ([place]) Comment on above: Performed By: #### D IFF, CBC, MORPH, BMP, GFR ####[address] [place], [place] [address] Chloride 100 mmol/L Normal 98-107 [facility] ([place]) Comment on above: Performed By: #### D IFF, CBC, MORPH, BMP, GFR ####[address] [place], [place] [address] Potassium molar conc 3.5 mmol/L Normal 3.5-5.1 [facility] ([place]) Comment on above: Performed By: #### D IFF, CBC, MORPH, BMP, GFR ####[address] [place], [place] [address] Sodium 141 mmol/L Normal 136-146 [facility] ([place]) Comment on above: Performed By: #### D IFF, CBC, MORPH, BMP, GFR ####[address] [place], [place] [address] CBCon 10-04-2017 Erythrocyte distribution width Auto Ratio (RBC) 13.1 % Normal 11.5-14.5 [facility] ([place]) Comment on above: Performed By: #### D IFF, CBC, MORPH, BMP, GFR ####[address] [place], [place] [address] Erythrocytes (RBC) 5.95 10 6/mcL Normal 4.04-6.13 [facility] ([place]) Comment on above: Performed By: #### D IFF, CBC, MORPH, BMP, GFR ####[address] [place], [place] [address] Hematocrit (HCT) 51.7 % Normal 42.0-52.0 [facility] ([place]) Comment on above: Performed By: #### D IFF, CBC, MORPH, BMP, GFR ####[address] [place], [place] [address] Hemoglobin mass conc (Bld) 17.5 G/dL Normal 14.0-18.0 [facility] ([place]) Comment on above: Performed By: #### D IFF, CBC, MORPH, BMP, GFR ####[address] [place], [place] [address] MCH 29.4 pg Normal 27.0-31.2 [facility] ([place]) Comment on above: Performed By: #### D IFF, CBC, MORPH, BMP, GFR ####[address] [place], [place] [address] MCHC mass conc (RBC) 33.8 G/dL Normal 31.8-35.4 [facility] ([place]) Comment on above: Performed By: #### D IFF, CBC, MORPH, BMP, GFR ####[address] [place], [place] [address] MCV 86.9 fL Normal 80.0-94.0 [facility] ([place]) Comment on above: Performed By: #### D IFF, CBC, MORPH, BMP, GFR ####[address] [place], [place] [address] Platelet mean volume (PMV) 7.2 fL Low 7.4-10.4 [facility] ([place]) Comment on above: Performed By: #### D IFF, CBC, MORPH, BMP, GFR ####[address] [place], [place] [address] Platelets 437 10 3/mcL High 130-400 [facility] ([place]) Comment on above: Performed By: #### D IFF, CBC, MORPH, BMP, GFR ####[address] [place], [place] [address] WBC (Leukocytes) 12.50 10 3/mcL High 4.60-10.80 [facility] ([place]) Comment on above: Performed By: #### D IFF, CBC, MORPH, BMP, GFR ####[address] [place], [place] [address] MGon 10-04-2017 Magnesium 1.7 mg/dL Normal 1.7-2.5 [facility] ([place]) Comment on above: Performed By: #### D IFF, CBC, MORPH, BMP, GFR ####[address] [place], [place] [address] Pat Eduon 10-04-2017 Pat Edu Normal [facility] ([place]) Patient Summary Documentson 10-04-2017 Patient Summary Documents Normal [facility] ([place]) UAon 10-04-2017 UA Appear Clear Normal Clear [facility] ([place]) Comment on above: Performed By: #### D IFF, CBC, MORPH, BMP, GFR ####[address] [place], [place] [address] UA Blood Negative Normal Negative [facility] ([place]) Comment on above: Performed By: #### D IFF, CBC, MORPH, BMP, GFR ####[address] [place] [address] UA Leuk Est Negative Normal Negative [facility] ([place]) Comment on above: Performed By: #### D IFF, CBC, MORPH, BMP, GFR ####[address] [place], [place] [address] UA Nitrite Negative Normal Negative [facility] ([place]) Comment on above: Performed By: #### D IFF, CBC, MORPH, BMP, GFR ####[address] [place] [address] UA pH 6.0 [facility] ([place]) Comment on above: Performed By: #### D IFF, CBC, MORPH, BMP, GFR ####[address] [place] [address] UA Protein Negative Normal Negative [facility] ([place]) Comment on above: Performed By: #### D IFF, CBC, MORPH, BMP, GFR ####[address] [place] [address] UA Spec Grav 1.015 Normal [facility] ([place]) Comment on above: Performed By: #### D IFF, CBC, MORPH, BMP, GFR ####[address] [place] [address] UA Specimen Type Clean Catch [facility] ([place]) Comment on above: Performed By: #### D IFF, CBC, MORPH, BMP, GFR ####[address] [place] [address] UA Urobilinogen 0.2 E.U./dL [facility] ([place]) Comment on above: Performed By: #### D IFF, CBC, MORPH, BMP, GFR ####[address] [place] [address] Urine, color Yellow [facility] ([place]) Comment on above: Performed By: #### D IFF, CBC, MORPH, BMP, GFR ####[address] [place] [address] Urine, glucose Negative Normal [facility] ([place]) Comment on above: Performed By: #### D IFF, CBC, MORPH, BMP, GFR ####[address] [place], [place] [address] Urine, ketones presence Negative Normal Negative [facility] ([place]) Comment on above: Performed By: #### D IFF, CBC, MORPH, BMP, GFR ####[address] [place], [place] [address] Urine, urobilinogen Negative Normal Negative [facility] ([place]) Comment on above: Performed By: #### D IFF, CBC, MORPH, BMP, GFR ####[address] [place], [place] [address] [facility] Note on 08-08-2017 [facility] Note Normal [facility] ([place]) Pat Eduon 08-08-2017 [facility] Normal [facility] ([place]) Patient Summary Documentson 08-08-2017 Patient Summary Documents Normal [facility] ([place]) [facility] Note on 06-15-2017 [facility] Note Normal [facility] ([place]) Pat Eduon 06-15-2017 Pat [facility] Normal [facility] ([place]) Patient Summary Documentson 06-15-2017 Patient Summary Documents Normal [facility] ([place]) [place] Discharge Summaryon 02-03-2017 [place] Discharge Summary Normal [facility] ([place]) [place] History and Physica eduardo 02-03-2017 [place] History and Physical Normal [facility]) [facility] Admi t Noteon 02-02-2017 [facility] Admit Note Normal [facility]) ED Note-Provideron 7 ED Note-Provider Normal [facility]) .Auto Diffon 01-18-2017 Basophils Auto #/vol (Bld) 0.20 10 3/mcL High 0.00-0.19 [facility]) Comment on above: Performed By: #### D IFF, CBC, MORPH, BMP, GFR ####[address] [place], [place] [address] Basophils/100 WBC Auto (Bld) 1.2 % Normal 0.0-2.5 [facility]) Comment on above: Performed By: #### D IFF, CBC, MORPH, BMP, GFR ####[address] [place], [place] [address] Eosinophils 0.10 10 3/mcL Normal 0.00-0.40 [facility] ([place]) Comment on above: Performed By: #### D IFF, CBC, MORPH, BMP, GFR ####[address] [place], [place] [address] Eosinophils/100 leukocytes 0.8 % Normal 0.0-7.0 [facility] ([place]) Comment on above: Performed By: #### D IFF, CBC, MORPH, BMP, GFR ####[address] [place], [place] [address] Lymphocytes 3.30 10 3/mcL Normal 0.77-3.85 [facility] ([place]) Comment on above: Performed By: #### D IFF, CBC, MORPH, BMP, GFR ####[address] [place], [place] [address] Lymphocytes/100 leukocytes 22.7 % Normal 10.0-50.0 [facility] ([place]) Comment on above: Performed By: #### D IFF, CBC, MORPH, BMP, GFR ####[address] [place], [place] [address] Monocytes 1.50 10 3/mcL High 0.15-1.00 [facility] ([place]) Comment on above: Performed By: #### D IFF, CBC, MORPH, BMP, GFR ####[address] [place], [place] [address] Monocytes/100 leukocytes 10.1 % Normal 1.7-13.0 [facility] ([place]) Comment on above: Performed By: #### D IFF, CBC, MORPH, BMP, GFR ####[address] [place], [place] [address] Neutrophils/100 WBC Auto (Bld) 65.2 % Normal 37.0-80.0 [facility] ([place]) Comment on above: Performed By: #### D IFF, CBC, MORPH, BMP, GFR ####[address] [place], [place] [address] .GFRon 01-18-2017 eGFR (non-black) mL/min/{1.73_m2} Normal [facility] ([place]) Comment on above: Result Comment: GFR Population mean for , Non- Americans Ages 20-29 = 116 mL/min/1.73 sq.m. Ages 30-39 = 107 mL/min/1.73 sq.m. Ages 40-49 = 99 mL/min/1.73 sq.m. Ages 50-59 = 93 mL/min/1.73 sq.m. Ages 60-69 = 85 mL/min/1.73 sq.m. Ages 70+ = 75 mL/min/1.73 sq.m.Chronic Kidney Disease: Less than 60 mL/min/1.73 square metersEnd Stage Renal Disease: Less than 15 mL/min/1.73 square meters Performed By: #### D IFF, CBC, MORPH, BMP, GFR ####[address] [place], [place] [address] eGFR (non-black) 88 ml/min/1.73sqm Normal A [facility] ([place]) Comment on above: Result Comment: GFR Population mean for , Non- Americans Ages 20-29 = 116 mL/min/1.73 sq.m. Ages 30-39 = 107 mL/min/1.73 sq.m. Ages 40-49 = 99 mL/min/1.73 sq.m. Ages 50-59 = 93 mL/min/1.73 sq.m. Ages 60-69 = 85 mL/min/1.73 sq.m. Ages 70+ = 75 mL/min/1.73 sq.m.Chronic Kidney Disease: Less than 60 mL/min/1.73 square metersEnd Stage Renal Disease: Less than 15 mL/min/1.73 square meters Performed By: #### D IFF, CBC, MORPH, BMP, GFR ####[place] [address] [place], [place] [address] .NEUABSon 01-18-2017 Neutrophils 9.40 10 3/mcL High 2.85-6.16 [facility] ([place]) Comment on above: Performed By: #### D IFF, CBC, MORPH, BMP, GFR ####[address] [place], [place] [address] .Urinalysis Microscopic (AO) on 01-18-2017 UA Squam Epithelial None Seen Normal None Seen [facility] ([place]) Comment on above: Performed By: #### D IFF, CBC, MORPH, BMP, GFR ####[address] [place], [place] [address] UA WBC None Seen Normal None Seen [facility] ([place]) Comment on above: Performed By: #### D IFF, CBC, MORPH, BMP, GFR ####[address] [place] [address] Urine, erythrocytes None Seen Normal None Seen [facility] ([place]) Comment on above: Performed By: #### D IFF, CBC, MORPH, BMP, GFR ####[address] [place] [address] ACETAon 01-18-2017 Acetaminophen mass conc <15.0 Low 15.0-30.0 [facility] ([place]) Comment on above: Performed By: #### A LC, ACETA, FABIOLA ####[address] [place] [address] Ana 01-18-2017 Ethanol Level <10 Normal [facility] ([place]) Comment on above: Performed By: #### A LC, ACETA, FABIOLA ####[address] [place] [address] BMPon 01-18-2017 Glucose mass conc 104 mg/dL Normal 70-105 [facility] ([place]) Comment on above: Performed By: #### D IFF, CBC, MORPH, BMP, GFR ####[address] [place] [address] BUN/Creatinine Ratio 24 ratio Normal 7-27 [facility] ([place]) Comment on above: Performed By: #### D IFF, CBC, MORPH, BMP, GFR ####[address] [place] [id number] Creatinine 1.2 mg/dL Normal 0.6-1.2 [facility] ([place]) Comment on above: Performed By: #### D IFF, CBC, MORPH, BMP, GFR ####[address] [place], [place] [address] CO2 25 mmol/L Normal 22-29 [facility] ([place]) Comment on above: Performed By: #### D IFF, CBC, MORPH, BMP, GFR ####[address] [place], [place] [address] Electrolyte Balance 8.0 mEq/L Normal [facility] ([place]) Comment on above: Performed By: #### D IFF, CBC, MORPH, BMP, GFR ####[address] [place], [place] [address] Calcium 8.3 mg/dL Low 8.4-10.2 [facility] ([place]) Comment on above: Performed By: #### D IFF, CBC, MORPH, BMP, GFR ####[address] [place], [place] [address] Urea nitrogen 28.8 mg/dL High 7.0-18.0 [facility] ([place]) Comment on above: Performed By: #### D IFF, CBC, MORPH, BMP, GFR ####[address] [place] [id number] Chloride 103 mmol/L Normal 98-107 [facility] ([place]) Comment on above: Performed By: #### D IFF, CBC, MORPH, BMP, GFR ####[address] [place], [place] [address] Potassium molar conc 4.0 mmol/L Normal 3.5-5.1 [facility] ([place]) Comment on above: Performed By: #### D IFF, CBC, MORPH, BMP, GFR ####[address] [place], [place] [address] Sodium 136 mmol/L Normal 136-146 [facility] ([place]) Comment on above: Performed By: #### D IFF, CBC, MORPH, BMP, GFR ####[address] [place], [place] [address] CBCon 01-18-2017 Erythrocyte distribution width Auto Ratio (RBC) 13.9 % Normal 11.5-14.5 [facility] ([place]) Comment on above: Performed By: #### C BC, ADIFF, ANEU, GFR, CK, BMP ####[address] [place], [place] [address] Erythrocytes (RBC) 4.79 10 6/mcL Normal 4.04-6.13 [facility] ([place]) Comment on above: Performed By: #### C BC, ADIFF, ANEU, GFR, CK, BMP ####[address] [place], [place] [address] Hematocrit (HCT) 42.2 % Normal 42.0-52.0 [facility] ([place]) Comment on above: Performed By: #### C BC, ADIFF, ANEU, GFR, CK, BMP ####[address] [place], [place] [address] Hemoglobin mass conc (Bld) 14.1 G/dL Normal 14.0-18.0 [facility] ([place]) Comment on above: Performed By: #### C BC, ADIFF, ANEU, GFR, CK, BMP ####[address] [place], [place] [address] MCH 29.4 pg Normal 27.0-31.2 [facility] ([place]) Comment on above: Performed By: #### C BC, ADIFF, ANEU, GFR, CK, BMP ####[address] [place], [place] [address] MCHC mass conc (RBC) 33.4 G/dL Normal 31.8-35.4 [facility] ([place]) Comment on above: Performed By: #### C BC, ADIFF, ANEU, GFR, CK, BMP ####[address] [place], [place] [address] MCV 88.1 fL Normal 80.0-94.0 [facility] ([place]) Comment on above: Performed By: #### C BC, ADIFF, ANEU, GFR, CK, BMP ####[address] [place], [place] [address] Platelet mean volume (PMV) 7.0 fL Low 7.4-10.4 [facility] ([place]) Comment on above: Performed By: #### C BC, ADIFF, ANEU, GFR, CK, BMP ####[address] [place], [place] [address] Platelets 391 10 3/mcL Normal 130-400 [facility] ([place]) Comment on above: Performed By: #### C BC, ADIFF, ANEU, GFR, CK, BMP ####[address] [place], [place] [address] WBC (Leukocytes) 14.50 10 3/mcL High 4.60-10.80 [facility] ([place]) Comment on above: Performed By: #### C BC, ADIFF, ANEU, GFR, CK, BMP ####[address] [place], [place] [address] CKon 01-18-2017 Creatine kinase (CK) 340 U/L High 38-174 [facility]) Comment on above: Performed By: #### D IFF, CBC, MORPH, BMP, GFR ####[address] [place], [place] [address] CRURon 01-18-2017 Creatinine 175.0 mg/dL Normal 39.0-259.0 [facility]) Comment on above: Performed By: #### D IFF, CBC, MORPH, BMP, GFR ####[address] [place], [place] [address] Depart Summaryon 01-18-2017 Depart Summary Normal [facility]) Discharge Note-Nursingon Discharge Note-Nursing Normal [facility]) Ruslan 01-18-2017 Potassium molar conc 4.8 mmol/L Normal 3.5-5.1 [facility]) Comment on above: Performed By: #### T ROP K, LAC ####[address] [place], [place] [address] LACon 01-18-2017 Lactic Acid Lvl 1.2 mmol/L Normal 0.5-2.2 [facility]) Comment on above: Performed By: #### T ROP K, LAC ####[address] [place], [place] [address] NAURon 01-18-2017 Sodium 77 mmol/L Normal [facility] ([place]) Comment on above: Performed By: #### D IFF, CBC, MORPH, BMP, GFR ####[address] [place], [place] [address] OSMOUon 01-18-2017 U Osmolality 652 mOsm/kg Normal 390-1090 [facility] ([place]) Comment on above: Performed By: #### D IFF, CBC, MORPH, BMP, GFR ####[address] [place], [place] [address] [place] [facility] eduardo 01-18-2017 [place] [facility] Physical Normal [facility] ([place]) [place] [facility] Patient S ummaryon 01-18-2017 [place] [facility] Patient Summary Normal [facility] ([place]) SALon 01-18-2017 Salicylate Level <1.0 Low 10.0-25.0 [facility] ([place]) Comment on above: Performed By: #### A LC, ACETA, FABIOLA ####[address] [place], [place] [address] TOXSCon 01-18-2017 QC TOXSC Valid [facility] ([place]) Comment on above: Performed By: #### Zhao OXSC ####[address] [place], [place] [address] U Ampheta (AO) Negative [facility] ([place]) Comment on above: Performed By: #### Zhao OXSC ####[address] [place], [place] [address] U Jayne (AO) Negative [facility] ([place]) Comment on above: Performed By: #### Zhao OXSC ####[address] [place], [place] [address] U Faizan (AO) Negative [facility] ([place]) Comment on above: Performed By: #### Zhao OXSC ####[address] [place], [place] [address] U Cannab (AO) Positive [facility] ([place]) Comment on above: Performed By: #### T OXSC ####[address] [place], [place] [address] U Cocaine (AO) Negative [facility] ([place]) Comment on above: Performed By: #### T OXSC ####[address] [place], [place] [address] U Methadone (AO) Negative [facility] ([place]) Comment on above: Performed By: #### T OXSC ####[address] [place], [place] [address] U PCP (AO) Negative [facility] ([place]) Comment on above: Performed By: #### T OXSC ####[address] [place], [place] [address] U TCA (AO) Positive [facility] ([place]) Comment on above: Performed By: #### T OXSC ####[address] [place], [place] [address] Urine Opiates (AO) Positive [facility] ([place]) Comment on above: Performed By: #### T OXSC ####[address] [place], [place] [address] TROPon 01-18-2017 Troponin I.cardiac mass conc ng/mL Normal 0.00-0.30 [facility] ([place]) Comment on above: Result Comment: Belo w measuring range>=0.30 Consistent with cardiac damage, increased clinical risk and possibility of myocardial infarction. Serial measurements, clinical history, appropriate symptoms and/or ECG changes may help assess possibility of VA.*Other non-acute coronary syndrome conditions such as CHF, myocarditis, pulmonary emboli, sepsis and cardiac surgery could result in myocardial damage and increased troponin levels. Performed By: #### T ROP, K, LAC ####[address] [place], [place] [address] UAon 01-18-2017 UA Appear CLEAR Normal [facility] ([place]) Comment on above: Performed By: #### D IFF, CBC, MORPH, BMP, GFR ####[address] [place], [place] [address] UA Blood Negative [facility] ([place]) Comment on above: Performed By: #### D IFF, CBC, MORPH, BMP, GFR ####[address] [place], [place] [address] UA Leuk Est Negative [facility] ([place]) Comment on above: Performed By: #### D IFF, CBC, MORPH, BMP, GFR ####[address] [place], [place] [address] UA Nitrite Negative [facility] ([place]) Comment on above: Performed By: #### D IFF, CBC, MORPH, BMP, GFR ####[address] [place] [address] UA pH 5.5 [facility] ([place]) Comment on above: Performed By: #### D IFF, CBC, MORPH, BMP, GFR ####[address] [place] [address] UA Protein Negative [facility] ([place]) Comment on above: Performed By: #### D IFF, CBC, MORPH, BMP, GFR ####[address] [place], [place] [address] UA Spec Grav 1.025 [facility] ([place]) Comment on above: Performed By: #### D IFF, CBC, MORPH, BMP, GFR ####[address] [place], [place] [address] UA Specimen Type Clean Catch [facility] ([place]) Comment on above: Performed By: #### D IFF, CBC, MORPH, BMP, GFR ####[address] [place], [place] [address] UA Urobilinogen 0.2 E.U./dL [facility] ([place]) Comment on above: Performed By: #### D IFF, CBC, MORPH, BMP, GFR ####[address] [place], [place] [address] Urine, color YELLOW [facility] ([place]) Comment on above: Performed By: #### D IFF, CBC, MORPH, BMP, GFR ####[address] [place], [place] [address] Urine, glucose Negative Normal [facility] ([place]) Comment on above: Performed By: #### D IFF, CBC, MORPH, BMP, GFR ####[address] [place], [place] [address] Urine, ketones presence Negative Normal [facility] ([place]) Comment on above: Performed By: #### D IFF, CBC, MORPH, BMP, GFR ####[address] [place], [place] [address] Urine, urobilinogen Negative Normal [facility] ([place]) Comment on above: Performed By: #### D IFF, CBC, MORPH, BMP, GFR ####[address] [place], [place] [address] .GFRon 01-17-2017 eGFR (non-black) 29 ml/min/1.73sqm Normal A [facility], [facility] ([place]) Comment on above: Result Comment: GFR Population mean for , Non- Americans Ages 20-29 = 116 mL/min/1.73 sq.m. Ages 30-39 = 107 mL/min/1.73 sq.m. Ages 40-49 = 99 mL/min/1.73 sq.m. Ages 50-59 = 93 mL/min/1.73 sq.m. Ages 60-69 = 85 mL/min/1.73 sq.m. Ages 70+ = 75 mL/min/1.73 sq.m.Chronic Kidney Disease: Less than 60 mL/min/1.73 square metersEnd Stage Renal Disease: Less than 15 mL/min/1.73 square meters Performed By: #### D IFF, CBC, MORPH, BMP, GFR ####[address] [place], [place] [address] eGFR (non-black) 35 ml/min/1.73sqm Normal [facility] ([place]) Comment on above: Result Comment: GFR Population mean for , Non- Americans Ages 20-29 = 116 mL/min/1.73 sq.m. Ages 30-39 = 107 mL/min/1.73 sq.m. Ages 40-49 = 99 mL/min/1.73 sq.m. Ages 50-59 = 93 mL/min/1.73 sq.m. Ages 60-69 = 85 mL/min/1.73 sq.m. Ages 70+ = 75 mL/min/1.73 sq.m.Chronic Kidney Disease: Less than 60 mL/min/1.73 square metersEnd Stage Renal Disease: Less than 15 mL/min/1.73 square meters Performed By: #### D IFF, CBC, MORPH, BMP, GFR ####[address] [place], [place] [address] .Manual Diffon 01-17-2017 Bands 13.0 % High 0.0-5.0 [facility] ([place]) Comment on above: Performed By: #### D IFF, CBC, MORPH, BMP, GFR ####[address] [place], [place] [address] Basophil %, Manual 0.0 % Normal 0.0-2.5 [facility] ([place]) Comment on above: Performed By: #### D IFF, CBC, MORPH, BMP, GFR ####[address] [place], [place] [address] Basophil, Abs Manual 0.00 10 3/mcL Normal 0.00-0.19 [facility] ([place]) Comment on above: Performed By: #### D IFF, CBC, MORPH, BMP, GFR ####[address] [place], [place] [address] Eosinophil, Abs Manual 0.00 10 3/mcL Normal 0.00-0.40 [facility] ([place]) Comment on above: Performed By: #### D IFF, CBC, MORPH, BMP, GFR ####[address] [place], [place] [address] Lymphocyte %, Manual 7.0 % Low 10.0-50.0 [facility] ([place]) Comment on above: Performed By: #### D IFF, CBC, MORPH, BMP, GFR ####[address] [place], [place] [address] Lymphocyte, Abs Manual 1.83 10 3/mcL Normal 0.77-3.85 [facility] ([place]) Comment on above: Performed By: #### D IFF, CBC, MORPH, BMP, GFR ####[address] [place], [place] [address] Monocyte %, Manual 5.0 % Normal 1.7-13.0 [facility] ([place]) Comment on above: Result Comment: 0.0 Performed By: #### D IFF, CBC, MORPH, BMP, GFR ####[address] [place], [place] [address] Monocyte, Abs Manual 1.31 10 3/mcL High 0.15-1.00 [facility] ([place]) Comment on above: Performed By: #### D IFF, CBC, MORPH, BMP, GFR ####[address] [place], [place] [address] Neutrophil %, Manual 75.0 % Normal 37.0-80.0 [facility] ([place]) Comment on above: Performed By: #### D IFF, CBC, MORPH, BMP, GFR ####[address] [place], [place] [address] Neutrophil, Abs Manual 23.06 10 3/mcL High 2.85-6.16 [facility] ([place]) Comment on above: Performed By: #### D IFF, CBC, MORPH, BMP, GFR ####[address] [place], [place] [address] Cells Counted 100 Normal [facility] ([place]) Comment on above: Performed By: #### D IFF, CBC, MORPH, BMP, GFR ####[address] [place], [place] [address] .Morphon 01-17-2017 Platelets Normal Normal [facility]) Comment on above: Performed By: #### D IFF, CBC, MORPH, BMP, GFR ####[address] [place], [place] [address] Smudge Cells Few Normal [facility] ([place]) Comment on above: Performed By: #### D IFF, CBC, MORPH, BMP, GFR ####[address] [place], [place] [address] BMPon 01-17-2017 BUN/Creatinine Ratio 13 ratio Normal 7-27 [facility] ([place]) Comment on above: Order Comment: speci men hemolyzed Performed By: #### D IFF, CBC, MORPH, BMP, GFR ####[address] [place], [place] [address] Creatinine 2.6 mg/dL High 0.6-1.2 [facility] ([place]) Comment on above: Order Comment: speci men hemolyzed Performed By: #### D IFF, CBC, MORPH, BMP, GFR ####[address] [place], [place] [address] Glucose mass conc 108 mg/dL High 70-105 [facility] ([place]) Comment on above: Order Comment: speci men hemolyzed Performed By: #### D IFF, CBC, MORPH, BMP, GFR ####[address] [place], [place] [address] CO2 25 mmol/L Normal 22-29 [facility] ([place]) Comment on above: Order Comment: speci men hemolyzed Performed By: #### D IFF, CBC, MORPH, BMP, GFR ####[address] [place], [place] [address] Electrolyte Balance 13.0 mEq/L Normal [facility] ([place]) Comment on above: Order Comment: speci men hemolyzed Performed By: #### D IFF, CBC, MORPH, BMP, GFR ####[address] [place], [place] [address] Calcium 10.1 mg/dL Normal 8.4-10.2 [facility] ([place]) Comment on above: Order Comment: speci men hemolyzed Performed By: #### D IFF, CBC, MORPH, BMP, GFR ####[address] [place], [place] [address] Urea nitrogen 32.7 mg/dL High 7.0-18.0 [facility] ([place]) Comment on above: Order Comment: speci men hemolyzed Performed By: #### D IFF, CBC, MORPH, BMP, GFR ####[address] [place], [place] [address] Chloride 93 mmol/L Low 98-107 [facility] ([place]) Comment on above: Order Comment: speci men hemolyzed Performed By: #### D IFF, CBC, MORPH, BMP, GFR ####[address] [place], [place] [address] Potassium molar conc 7.5 mmol/L Critically abnormal 3.5-5.1 [facility] ([place]) Comment on above: Order Comment: speci men hemolyzed Performed By: #### D IFF, CBC, MORPH, BMP, GFR ####[address] [place], [place] [address] Sodium 131 mmol/L Low 136-146 [facility] ([place]) Comment on above: Order Comment: speci men hemolyzed Performed By: #### D IFF, CBC, MORPH, BMP, GFR ####[address] [place], [place] [address] CBCon 01-17-2017 Erythrocyte distribution width Auto Ratio (RBC) 14.0 % Normal 11.5-14.5 [facility] ([place]) Comment on above: Performed By: #### D IFF, CBC, MORPH, BMP, GFR ####[address] [place], [place] [address] Erythrocytes (RBC) 6.31 10 6/mcL High 4.04-6.13 [facility] ([place]) Comment on above: Performed By: #### D IFF, CBC, MORPH, BMP, GFR ####[address] [place], [place] [address] Hematocrit (HCT) 55.6 % High 42.0-52.0 [facility] ([place]) Comment on above: Performed By: #### D IFF, CBC, MORPH, BMP, GFR ####[address] [place], [place] [address] Hemoglobin mass conc (Bld) 18.5 G/dL High 14.0-18.0 [facility] ([place]) Comment on above: Performed By: #### D IFF, CBC, MORPH, BMP, GFR ####[address] [place], [place] [address] MCH 29.3 pg Normal 27.0-31.2 [facility] ([place]) Comment on above: Performed By: #### D IFF, CBC, MORPH, BMP, GFR ####[address] [place], [place] [address] MCHC mass conc (RBC) 33.2 G/dL Normal 31.8-35.4 [facility] ([place]) Comment on above: Performed By: #### D IFF, CBC, MORPH, BMP, GFR ####[address] [place], [place] [address] MCV 88.2 fL Normal 80.0-94.0 [facility] ([place]) Comment on above: Performed By: #### D IFF, CBC, MORPH, BMP, GFR ####[address] [place], [place] [address] Platelet mean volume (PMV) 7.3 fL Low 7.4-10.4 [facility] ([place]) Comment on above: Performed By: #### D IFF, CBC, MORPH, BMP, GFR ####[address] [place], [place] [address] Platelets 517 10 3/mcL High 130-400 [facility] ([place]) Comment on above: Performed By: #### D IFF, CBC, MORPH, BMP, GFR ####[address] [place], [place] [address] WBC (Leukocytes) 26.20 10 3/mcL Critically abnormal 4.60-10.80 [facility] ([place]) Comment on above: Performed By: #### D IFF, CBC, MORPH, BMP, GFR ####[address] [place], [place] [address] CKon 01-17-2017 Creatine kinase (CK) 265 U/L High 38-174 [facility] ([place]) Comment on above: Performed By: #### C K ####[address] [place], [place] [address] HFPon 01-17-2017 Alanine aminotransferase (ALT) 27 U/L Normal 10-35 [facility] ([place]) Comment on above: Performed By: #### H FP ####[address] [place], [place] [address] Albumin/Globulin Ratio 1.4 {ratio} Normal 1.1-2.5 A [facility] ([place]) Comment on above: Performed By: #### H FP ####[address] [place], [place] [address] Alk Phos 123 IU/L Normal 40-135 [facility] ([place]) Comment on above: Performed By: #### H FP ####[address] [place], [place] [address] Aspartate aminotransferase (AST) 25 U/L Normal 10-40 [facility] ([place]) Comment on above: Performed By: #### H FP ####[address] [place], [place] [address] Bili Direct 0.1 mg/dL Normal 0.1-0.5 [facility] ([place]) Comment on above: Performed By: #### H FP ####[address] [place], [place] [address] Bili Indirect 0.4 mg/dL Normal [facility] ([place]) Comment on above: Performed By: #### H FP ####[address] [place], [place] [address] Bili Total 0.5 mg/dL Normal 0.2-1.0 [facility] ([place]) Comment on above: Performed By: #### H FP ####[address] [place], [place] [address] Globulin 3.7 G/dL Normal [facility] ([place]) Comment on above: Performed By: #### H FP ####[address] [place], [place] [address] Protein 9.0 G/dL High 6.0-8.3 [facility] ([place]) Comment on above: Performed By: #### H FP ####[address] [place], [place] [address] Albumin 5.3 G/dL High 3.5-5.0 [facility] ([place]) Comment on above: Performed By: #### H ####[address] [place], [place] [address] XR CHEST 1 VIEWon 01-17-2017 XR CHEST 1 VIEW ORIGINALXR CHEST 1 VIEW CLINICAL STATEMENT: pain COMPARISON: None FINDINGS: Lungs are clear. There is a normal cardiac and pulmonary contour. No acute infiltrate, pleural effusion, or pneumothorax is present. IMPRESSION: 1. No acute chest process. Interpreted By: Almas Brooke DOPreliminary Report By: Almas Brooke DOElectronically Signed By: Almas Brooke DO Dictated Date: 01/17/2017 9:24:06 PM Prelim Date: 01/17/2017 9:24:06 PM Sign Date: 01/17/2017 9:24:55 PM Normal [facility]) [facility] Note on 12-03-2016 [facility] Note Normal [facility]) Patient Summary Documentson 12-03-2016 Patient Summary Documents Normal [facility]) Vital Signs Date Time Vital Sign Value Performing Clinician Facility 12-04-2024 08:06-0400 Body temperature 97 [degF] Kelvin Fernando MD Work Phone: [facility] [place] 12-04-2024 08:06-0400 Diastolic blood pressure 102 mm[Hg] Kelvin Fernando MD Work Phone: [facility] [place] 12-04-2024 08:06-0400 Heart rate 103 /min Kelvin Fernando MD Work Phone: [facility] [place] 12-04-2024 08:06-0400 Respiratory rate 16 /min Kelvin Fernando MD Work Phone: [facility] [place] 12-04-2024 08:06-0400 SaO2% (BldA) [Mass fraction] 96 % Kelvin Fernando MD Work Phone: [facility] [place] 12-04-2024 08:06-0400 Systolic blood pressure 138 mm[Hg] Kelvin Fernando MD Work Phone: [facility] [employer] 12-01-2024 05:55-0400 Body height 177.8 cm Kelvin Fernando MD Work Phone: [facility] 11-29-2024 18:08-0400 Body mass index (BMI) [Ratio] 23.68 kg/m2 Kelvin Fernando MD Work Phone: [facility] 11-29-2024 18:08-0400 Body weight 74.84 kg Kelvin Fernando MD Work Phone: [facility] 08-10-2024 10:32-0400 Diastolic blood pressure 112 mm[Hg] Ramesh Grimaldo MD Work Phone: [facility] 08-10-2024 10:32-0400 Heart rate 110 /min Ramesh Grimaldo MD Work Phone: [facility] 08-10-2024 10:32-0400 Respiratory rate 16 /min Ramesh Grimaldo MD Work Phone: [facility] 08-10-2024 10:32-0400 SaO2% (BldA) [Mass fraction] 99 % Ramesh Grimaldo MD Work Phone: [facility] 08-10-2024 10:32-0400 Systolic blood pressure 154 mm[Hg] Ramesh Grimaldo MD Work Phone: [facility] [employer] 08-10-2024 09:53-0400 Body height 177.8 cm Ramesh Grimaldo MD Work Phone: [facility] [employer] 08-10-2024 09:53-0400 Body mass index (BMI) [Ratio] 23.68 kg/m2 Ramesh Grimaldo MD Work Phone: [facility] 08-10-2024 09:53-0400 Body temperature 97.81 [degF] Ramesh Grimaldo MD Work Phone: [facility] [employer] 08-10-2024 09:53-0400 Body weight 74.84 kg Ramesh Grimaldo MD Work Phone: [facility] [employer] 05-28-2024 14:36-0500 Diastolic blood pressure 94 mm[Hg] Marquise Nair MD Work Phone: [facility] [employer] 05-28-2024 14:36-0500 Heart rate 117 /min Marquise Nair MD Work Phone: [facility] 05-28-2024 14:36-0500 Respiratory rate 16 /min Marquise Nair MD Work Phone: [facility] 05-28-2024 14:36-0500 SaO2% (BldA) [Mass fraction] 97 % Marquise Nair MD Work Phone: [facility] 05-28-2024 14:36-0500 Systolic blood pressure 128 mm[Hg] Marquise Nair MD Work Phone: [facility] 05-27-2024 09:01-0500 Body height 177.8 cm Marquise Nair MD Work Phone: [facility] 05-27-2024 09:01-0500 Body mass index (BMI) [Ratio] 23.68 kg/m2 Marquise Nair MD Work Phone: [facility] 05-27-2024 09:01-0500 Body temperature 98.29 [degF] Marquise Nair MD Work Phone: [facility] 05-27-2024 09:01-0500 Body weight 74.84 kg Marquise Nair MD Work Phone: [facility] 05-17-2024 08:41-0500 Body height 177.8 cm Estefani Garces MD Work Phone: [facility] 05-17-2024 08:41-0500 Body mass index (BMI) [Ratio] 23.68 kg/m2 Estefani Garces MD Work Phone: [employer] 05-17-2024 08:41-0500 Body weight 74.84 kg Estefani Garces MD Work Phone: [facility] 04-05-2024 08:58-0500 Body height 177.8 cm Estefani Garces MD Work Phone: [facility] [employer] 04-05-2024 08:58-0500 Body mass index (BMI) [Ratio] 23.68 kg/m2 Estefani Garces MD Work Phone: [facility] 04-05-2024 08:58-0500 Body weight 74.84 kg Estefani Garces MD Work Phone: [facility] 03-13-2024 11:35-0500 Body height 177.8 cm Raiza Mcmillan MORTGAGE SPECIALIST - SWITCHBOARD CLERK Work Phone: [facility] 03-13-2024 11:35-0500 Body mass index (BMI) [Ratio] 23.76 kg/m2 Raiza Mcmillan MORTGAGE SPECIALIST - SWITCHBOARD CLERK Work Phone: [facility] 03-13-2024 11:35-0500 Body temperature 97.81 [degF] Raiza Bansaly MORTGAGE SPECIALIST - SWITCHBOARD CLERK Work Phone: [facility] 03-13-2024 11:35-0500 Body weight 75.1 kg Raiza Bansaly MORTGAGE SPECIALIST - SWITCHBOARD CLERK Work Phone: [facility] [facility] 03-13-2024 11:35-0500 Diastolic blood pressure 74 mm[Hg] Raiza Mcmillan MORTGAGE SPECIALIST - SWITCHBOARD CLERK Work Phone: [facility] 03-13-2024 11:35-0500 Heart rate 73 /min Raiza Mcmillan MORTGAGE SPECIALIST - SWITCHBOARD CLERK Work Phone: [facility] 03-13-2024 11:35-0500 Systolic blood pressure 119 mm[Hg] Raiza Mcmillan MORTGAGE SPECIALIST - SWITCHBOARD CLERK Work Phone: [facility] 03-08-2024 14:04-0500 Body height 175.3 cm Estefani Garces MD Work Phone: [facility] 03-08-2024 14:04-0500 Body mass index (BMI) [Ratio] 23.63 kg/m2 Estefani Garces MD Work Phone: [facility] [facility] 03-08-2024 14:04-0500 Body weight 72.58 kg Estefani Garces MD Work Phone: [facility] 03-06-2024 15:07-0500 Diastolic blood pressure 104 mm[Hg] DEAN Braxton MD Work Phone: [facility] [employer] 03-06-2024 15:07-0500 Heart rate 88 /min DEAN Braxton MD Work Phone: [facility] 03-06-2024 15:07-0500 Respiratory rate 16 /min DEAN Braxton MD Work Phone: [facility] 03-06-2024 15:07-0500 SaO2% (BldA) [Mass fraction] 95 % DEAN Braxton MD Work Phone: [facility] 03-06-2024 15:07-0500 Systolic blood pressure 154 mm[Hg] DEAN Braxton MD Work Phone: [facility] 03-06-2024 01:32-0500 Body height 175.3 cm DEAN Braxton MD Work Phone: [facility] 03-06-2024 01:32-0500 Body mass index (BMI) [Ratio] 23.63 kg/m2 DEAN Braxton MD Work Phone: [facility] 03-06-2024 01:32-0500 Body weight 72.58 kg DEAN Braxton MD Work Phone: [facility] 03-05-2024 21:24-0500 Body temperature 98.29 [degF] DEAN Braxton MD Work Phone: [facility] 03-02-2024 11:33-0500 Body height 177.8 cm Yoanna Castro MORTGAGE SPECIALIST - SWITCHBOARD CLERK Work Phone: [facility] 03-02-2024 11:33-0500 Body mass index (BMI) [Ratio] 22.62 kg/m2 Yoanna Castro MORTGAGE SPECIALIST - SWITCHBOARD CLERK Work Phone: [facility] [employer] 03-02-2024 11:33-0500 Body temperature 98.2 [degF] Yoanna Castro MORTGAGE SPECIALIST - SWITCHBOARD CLERK Work Phone: [facility] [employer] 03-02-2024 11:33-0500 Body weight 71.5 kg Yoanna Castro MORTGAGE SPECIALIST - SWITCHBOARD CLERK Work Phone: [facility] 03-02-2024 11:33-0500 Diastolic blood pressure 98 mm[Hg] Yoanna Castro MORTGAGE SPECIALIST - SWITCHBOARD CLERK Work Phone: [employer] 03-02-2024 11:33-0500 Heart rate 82 /min Yoanna Castro MORTGAGE SPECIALIST - SWITCHBOARD CLERK Work Phone: [employer] 03-02-2024 11:33-0500 Systolic blood pressure 146 mm[Hg] Yoanna Castro APRN - SWITCHBOARD CLERK Work Phone: [employer] 02-14-2024 04:58-0400 Diastolic blood pressure 69 mm[Hg] Marquise Nair MD Work Phone: [employer] 02-14-2024 04:58-0400 Heart rate 94 /min Marquise Nair MD Work Phone: [employer] 02-14-2024 04:58-0400 Systolic blood pressure 116 mm[Hg] Marquise Nair MD Work Phone: [employer] 02-14-2024 04:43-0400 Body height 177.8 cm Marquise Nair MD Work Phone: [employer] 02-14-2024 04:43-0400 Body mass index (BMI) [Ratio] 22.62 kg/m2 Marquise Nair MD Work Phone: [employer] 02-14-2024 04:43-0400 Body weight 71.5 kg Marquise Nair MD Work Phone: [employer] 02-14-2024 04:41-0400 Body temperature 97.7 [degF] Marquise Nair MD Work Phone: [employer] 02-14-2024 04:41-0400 Respiratory rate 12 /min Marquise Nair MD Work Phone: [employer] 02-14-2024 04:41-0400 SaO2% (BldA) [Mass fraction] 99 % Marquise Nair MD Work Phone: [employer] 02-13-2024 11:10-0400 Body temperature 97.11 [degF] Betsy Campos DO Work Phone: [employer] 02-13-2024 11:10-0400 Diastolic blood pressure 98 mm[Hg] Betsy Campos DO Work Phone: [employer] 02-13-2024 11:10-0400 Heart rate 100 /min Betsy Campos DO Work Phone: [employer] 02-13-2024 11:10-0400 Respiratory rate 22 /min Betsy Campos DO Work Phone: [employer] 02-13-2024 11:10-0400 SaO2% (BldA) [Mass fraction] 97 % Betsy Campos DO Work Phone: [employer] 02-13-2024 11:10-0400 Systolic blood pressure 122 mm[Hg] Betsy Campos DO Work Phone: [employer] 02-13-2024 08:39-0400 Body height 177.8 cm Betsy Campos DO Work Phone: [employer] 02-13-2024 06:00-0400 Body mass index (BMI) [Ratio] 22.11 kg/m2 Betsy Campos DO Work Phone: [employer] 02-13-2024 06:00-0400 Body weight 69.9 kg Betsy Campos DO Work Phone: [employer] 02-08-2024 06:30-0400 Diastolic blood pressure 99 mm[Hg] Betsy Blum MD Work Phone: [employer] 02-08-2024 06:30-0400 Heart rate 107 /min Betsy Blum MD Work Phone: [employer] 02-08-2024 06:30-0400 SaO2% (BldA) [Mass fraction] 93 % Betsy Blum MD Work Phone: [employer] 02-08-2024 06:30-0400 Systolic blood pressure 155 mm[Hg] Betsy Blum MD Work Phone: [employer] 02-08-2024 04:31-0400 Body height 177.8 cm Betsy Blum MD Work Phone: [employer] 02-08-2024 04:31-0400 Body mass index (BMI) [Ratio] 22.96 kg/m2 Betsy Blum MD Work Phone: [facility] [employer] 02-08-2024 04:31-0400 Body temperature 98.6 [degF] Betsy Blum MD Work Phone: [facility] 02-08-2024 04:31-0400 Body weight 72.58 kg Betsy Blum MD Work Phone: [facility] 02-08-2024 04:31-0400 Respiratory rate 18 /min Betsy Blum MD Work Phone: [facility] 01-29-2024 00:13-0400 Diastolic blood pressure 87 mm[Hg] Lauri Dior MD Work Phone: [facility] 01-29-2024 00:13-0400 Heart rate 95 /min Lauri Dior MD Work Phone: [facility] 01-29-2024 00:13-0400 Respiratory rate 18 /min Lauri Dior MD Work Phone: [employer] 01-29-2024 00:13-0400 SaO2% (BldA) [Mass fraction] 97 % Lauri Dior MD Work Phone: [facility] 01-29-2024 00:13-0400 Systolic blood pressure 134 mm[Hg] Lauri Dior MD Work Phone: [facility] 01-28-2024 22:14-0400 Body height 177.8 cm Lauri Dior MD Work Phone: [employer] 01-28-2024 22:14-0400 Body mass index (BMI) [Ratio] 23.24 kg/m2 Lauri Dior MD Work Phone: [employer] 01-28-2024 22:14-0400 Body temperature 98.2 [degF] Lauri Dior MD Work Phone: [facility] 01-28-2024 22:14-0400 Body weight 73.48 kg Lauri Dior MD Work Phone: [facility] 10-27-2023 07:54-0400 Body height 177.8 cm Jamey No MD Work Phone: [facility] 10-27-2023 07:54-0400 Body mass index (BMI) [Ratio] 28.7 kg/m2 Jamey No MD Work Phone: [facility] 10-27-2023 07:54-0400 Body weight 90.72 kg Jamey No MD Work Phone: [facility] 10-27-2023 07:54-0400 Diastolic blood pressure 68 mm[Hg] Jamey No MD Work Phone: [facility] 10-27-2023 07:54-0400 Systolic blood pressure 128 mm[Hg] Jamey No MD Work Phone: [facility] [facility] 10-21-2023 15:38-0400 Body height 177.8 cm Giovani Collado MD Work Phone: [facility] 10-21-2023 15:38-0400 Body mass index (BMI) [Ratio] 28.7 kg/m2 Giovani Collado MD Work Phone: [facility] 10-21-2023 15:38-0400 Body temperature 97.5 [degF] Giovani Collado MD Work Phone: [facility] [employer] 10-21-2023 15:38-0400 Body weight 90.72 kg Giovani Collado MD Work Phone: [facility] [employer] 10-21-2023 15:38-0400 Diastolic blood pressure 85 mm[Hg] Giovani Collado MD Work Phone: [facility] [employer] 10-21-2023 15:38-0400 Heart rate 72 /min Giovani Collado MD Work Phone: [facility] [employer] 10-21-2023 15:38-0400 Respiratory rate 14 /min Giovani Collado MD Work Phone: [facility] [employer] 10-21-2023 15:38-0400 SaO2% (BldA) [Mass fraction] 95 % Giovani Collado MD Work Phone: [facility] [employer] 10-21-2023 15:38-0400 Systolic blood pressure 112 mm[Hg] Giovani Collado MD Work Phone: [facility] [employer] 04-25-2023 00:25-0500 Heart rate 97 /min Lauri Dior MD Work Phone: [facility] [employer] 04-25-2023 00:25-0500 Respiratory rate 19 /min Lauri Dior MD Work Phone: [employer] 04-25-2023 00:25-0500 SaO2% (BldA) [Mass fraction] 94 % Lauri Dior MD Work Phone: [facility] [employer] 04-25-2023 00:24-0500 Diastolic blood pressure 91 mm[Hg] Lauri Dior MD Work Phone: [facility] [employer] 04-25-2023 00:24-0500 Systolic blood pressure 111 mm[Hg] Lauri Dior MD Work Phone: [facility] [employer] 04-24-2023 23:39-0500 Body height 177.8 cm Lauri Dior MD Work Phone: [facility] [employer] 04-24-2023 23:39-0500 Body mass index (BMI) [Ratio] 29.56 kg/m2 Lauri Dior MD Work Phone: [facility] [employer] 04-24-2023 23:39-0500 Body weight 93.44 kg Lauri Dior MD Work Phone: [facility] [employer] 04-24-2023 23:22-0500 Body temperature 98.29 [degF] Lauri Dior MD Work Phone: [employer] 04-22-2023 11:05-0500 Body temperature 96.49 [degF] Hitesh Gombash DO Work Phone: [employer] 04-22-2023 11:05-0500 Diastolic blood pressure 81 mm[Hg] Hitesh Gombash DO Work Phone: [facility] [employer] 04-22-2023 11:05-0500 Heart rate 102 /min Hitesh Gombash DO Work Phone: [employer] 04-22-2023 11:05-0500 Respiratory rate 18 /min Hitesh Gombash DO Work Phone: [employer] 04-22-2023 11:05-0500 SaO2% (BldA) [Mass fraction] 94 % Hitesh Gombash DO Work Phone: [employer] 04-22-2023 11:05-0500 Systolic blood pressure 117 mm[Hg] Hitesh Gombash DO Work Phone: [employer] 04-21-2023 02:20-0500 Body height 177.8 cm Hitesh Gombash DO Work Phone: [employer] 04-21-2023 02:20-0500 Body mass index (BMI) [Ratio] 29.56 kg/m2 Hitesh Gombash DO Work Phone: [employer] 04-21-2023 02:20-0500 Body weight 93.44 kg Hitesh Gombash DO Work Phone: [employer] 04-17-2023 11:34-0500 Body temperature 95.31 [degF] Marquise Nair MD Work Phone: [employer] 04-17-2023 11:34-0500 Diastolic blood pressure 114 mm[Hg] Marquise Nair MD Work Phone: [employer] 04-17-2023 11:34-0500 Heart rate 88 /min Marquise Nair MD Work Phone: [employer] 04-17-2023 11:34-0500 Respiratory rate 16 /min Marquise Nair MD Work Phone: [employer] 04-17-2023 11:34-0500 SaO2% (BldA) [Mass fraction] 95 % Marquise Nair MD Work Phone: [employer] 04-17-2023 11:34-0500 Systolic blood pressure 147 mm[Hg] Marquise Nair MD Work Phone: [employer] 04-17-2023 01:45-0500 Body mass index (BMI) [Ratio] 29.2 kg/m2 Marquise Nair MD Work Phone: [employer] 04-17-2023 01:45-0500 Body weight 92.31 kg Marquise Nair MD Work Phone: [employer] 04-16-2023 21:27-0500 Body height 177.8 cm Marquise Nair MD Work Phone: [employer] 02-03-2023 13:31-0400 Body height 177.8 cm Giovani oCllado MD Work Phone: [employer] 02-03-2023 13:11-0400 Heart rate 115 /min Giovani Collado MD Work Phone: [employer] 02-03-2023 13:11-0400 Respiratory rate 16 /min Giovani Collado MD Work Phone: [employer] 02-03-2023 13:11-0400 SaO2% (BldA) [Mass fraction] 97 % Giovani Collado MD Work Phone: [employer] 02-03-2023 11:34-0400 Body temperature 97.81 [degF] Giovani Collado MD Work Phone: [employer] 02-03-2023 11:34-0400 Diastolic blood pressure 90 mm[Hg] Giovani Collado MD Work Phone: [employer] 02-03-2023 11:34-0400 Systolic blood pressure 121 mm[Hg] Giovani Collado MD Work Phone: [employer] 02-01-2023 06:00-0400 Body mass index (BMI) [Ratio] 30.4 kg/m2 Giovani Collado MD Work Phone: [employer] 02-01-2023 06:00-0400 Body weight 96.1 kg Giovani Collado MD Work Phone: [employer] 01-31-2023 10:01-0400 SaO2% (BldA) [Mass fraction] 94.8 % Giovani Collado MD Work Phone: [facility] [employer] 01-29-2023 22:47-0400 SaO2% (BldA) [Mass fraction] 91.2 % Giovani Collado MD Work Phone: [facility] [employer] 10-10-2022 15:55-0400 Body height 177.8 cm Betsy Campos DO Work Phone: [facility] [employer] 10-10-2022 15:55-0400 Body mass index (BMI) [Ratio] 28.7 kg/m2 Betsy Pallaci DO Work Phone: [employer] 10-10-2022 15:55-0400 Body temperature 98.1 [degF] Betsy Kingaci DO Work Phone: [facility] [employer] 10-10-2022 15:55-0400 Body weight 90.72 kg Betsy Kingaci DO Work Phone: [facility] [employer] 10-10-2022 15:55-0400 Diastolic blood pressure 92 mm[Hg] Betsy Kingaci DO Work Phone: [employer] 10-10-2022 15:55-0400 Heart rate 91 /min Betsy Kingaci DO Work Phone: [employer] 10-10-2022 15:55-0400 Respiratory rate 17 /min Betsy Kingaci DO Work Phone: [facility] [employer] 10-10-2022 15:55-0400 SaO2% (BldA) [Mass fraction] 96 % Betsy Kingaci DO Work Phone: [facility] [employer] 10-10-2022 15:55-0400 Systolic blood pressure 135 mm[Hg] Betsy Kingaci DO Work Phone: [facility] [employer] 09-25-2022 00:03-0400 Body temperature 97.52 [degF] BASIL WILKINS MD [facility] 09-25-2022 00:03-0400 Diastolic Blood Pressure Non-Invasive 112 1 BASIL WILKINS MD [facility] 09-25-2022 00:03-0400 Heart rate 99 /min BASIL WILKINS MD [facility] 09-25-2022 00:03-0400 Respiratory rate 18 /min BASIL WILKINS MD [facility] 09-25-2022 00:03-0400 Systolic Blood Pressure Non-Invasive 139 1 BASIL WILKINS MD [facility] 09-24-2022 23:31-0400 Reason For Taking VItal Signs BASIL WILKINS MD [facility] 09-24-2022 22:25-0400 Body height 177.8 cm BASIL WILKINS MD [facility] 09-24-2022 22:25-0400 Body temperature 97.52 [degF] BASIL WILKINS MD [facility] 09-24-2022 22:25-0400 Body weight 90.9 kg BASIL WILKINS MD [facility] 09-24-2022 22:25-0400 Diastolic Blood Pressure Non-Invasive 82 1 BASIL WILKINS MD [facility] 09-24-2022 22:25-0400 Heart rate 133 /min BASIL WILKINS MD [facility] 09-24-2022 22:25-0400 Respiratory rate 20 /min BASIL WILKINS MD [facility] 09-24-2022 22:25-0400 Systolic Blood Pressure Non-Invasive 119 1 BASIL WILKINS MD [facility] 09-19-2022 07:02-0400 Diastolic blood pressure 121 mm[Hg] Ene Sarabia DO Work Phone: [facility] [employer] 09-19-2022 07:02-0400 Heart rate 91 /min Eneav Sarabia DO Work Phone: [facility] [employer] 09-19-2022 07:02-0400 Systolic blood pressure 162 mm[Hg] Ene No DO Work Phone: [facility] [employer] 09-19-2022 05:03-0400 Respiratory rate 16 /min Ene No DO Work Phone: [facility] [employer] 09-19-2022 05:03-0400 SaO2% (BldA) [Mass fraction] 86 % Eneav Sarabia DO Work Phone: [facility] [employer] 09-19-2022 04:02-0400 Body temperature 98.8 [degF] Eneav Sarabia DO Work Phone: [facility] [employer] 09-18-2022 20:31-0400 Body height 177.8 cm Eneav Sarabia DO Work Phone: [facility] [employer] 09-18-2022 20:31-0400 Body mass index (BMI) [Ratio] 27.46 kg/m2 Eneav Sarabia DO Work Phone: [facility] [employer] 09-18-2022 20:31-0400 Body weight 86.82 kg Eneav Sarabia DO Work Phone: [facility] [employer] 09-16-2022 15:20-0400 Respiratory rate 30 /min Prince Nesheim DO Work Phone: [facility] [employer] 09-16-2022 15:11-0400 Heart rate 116 /min Prince Nesheim DO Work Phone: [facility] [employer] 09-16-2022 15:11-0400 SaO2% (BldA) [Mass fraction] 93 % Prince Nesheim DO Work Phone: [facility] [employer] 09-16-2022 15:00-0400 Diastolic blood pressure 118 mm[Hg] Prince Nesheim DO Work Phone: [facility] [employer] 09-16-2022 15:00-0400 Systolic blood pressure 155 mm[Hg] Prinec Nesheim DO Work Phone: [facility] [employer] 09-16-2022 10:38-0400 Body temperature 97.39 [degF] Prince Nesheim DO Work Phone: [facility] [employer] 09-16-2022 00:53-0400 Body height 177.8 cm Prince Nesheim DO Work Phone: [facility] [employer] 09-16-2022 00:53-0400 Body mass index (BMI) [Ratio] 28.7 kg/m2 Prince Nesheim DO Work Phone: [facility] [employer] 09-16-2022 00:53-0400 Body weight 90.72 kg Prince Nesheim DO Work Phone: [facility] [employer] 08-26-2022 21:02-0400 Body temperature 97.7 [degF] Basil Mariano MD Work Phone: [facility] [employer] 08-26-2022 21:02-0400 Diastolic blood pressure 117 mm[Hg] Basil Mariano MD Work Phone: [facility] [employer] 08-26-2022 21:02-0400 Heart rate 88 /min Basil Mariano MD Work Phone: [facility] [employer] 08-26-2022 21:02-0400 Respiratory rate 20 /min Basil Mariano MD Work Phone: [facility] [employer] 08-26-2022 21:02-0400 SaO2% (BldA) [Mass fraction] 93 % Basil Mariano MD Work Phone: [facility] [employer] 08-26-2022 21:02-0400 Systolic blood pressure 177 mm[Hg] Basil Mariano MD Work Phone: [facility] [employer] 08-26-2022 09:12-0400 Body height 177.8 cm Basil Mariano MD Work Phone: [facility] [employer] 08-26-2022 09:12-0400 Body mass index (BMI) [Ratio] 28.7 kg/m2 Basil Mariano MD Work Phone: [facility] [employer] 08-26-2022 09:12-0400 Body weight 90.72 kg Basil Mariano MD Work Phone: [facility] [employer] 08-06-2022 00:15-0400 Body temperature 98.01 [degF] Feliciano Leos MD Work Phone: [facility] [employer] 08-06-2022 00:15-0400 Diastolic blood pressure 95 mm[Hg] Feliciano Leos MD Work Phone: [facility] [employer] 08-06-2022 00:15-0400 Heart rate 90 /min Feliciano Leos MD Work Phone: [facility] [employer] 08-06-2022 00:15-0400 Respiratory rate 20 /min Feliciano Leos MD Work Phone: [facility] [employer] 08-06-2022 00:15-0400 SaO2% (BldA) [Mass fraction] 94 % Feliciano Leos MD Work Phone: [facility] [employer] 08-06-2022 00:15-0400 Systolic blood pressure 136 mm[Hg] Feliciano Leos MD Work Phone: [facility] [employer] 07-28-2022 23:00-0400 Diastolic blood pressure 91 mm[Hg] Betsy Rain MD Work Phone: [facility] [employer] 07-28-2022 23:00-0400 Heart rate 95 /min Betsy Rain MD Work Phone: [facility] [employer] 07-28-2022 23:00-0400 SaO2% (BldA) [Mass fraction] 95 % Betsy Rain MD Work Phone: [facility] [employer] 07-28-2022 23:00-0400 Systolic blood pressure 127 mm[Hg] Betsy Rain MD Work Phone: [facility] [employer] 07-28-2022 21:36-0400 Body height 177.8 cm Betsy Rain MD Work Phone: [employer] 07-28-2022 21:36-0400 Body mass index (BMI) [Ratio] 26.54 kg/m2 Betsy Rain MD Work Phone: [employer] 07-28-2022 21:36-0400 Body temperature 97.9 [degF] Betsy Rain MD Work Phone: [employer] 07-28-2022 21:36-0400 Body weight 83.92 kg Betsy Rain MD Work Phone: [employer] 07-28-2022 21:36-0400 Respiratory rate 15 /min Betsy Rain MD Work Phone: [employer] 04-24-2022 15:34-0500 Body mass index (BMI) [Ratio] 28.7 kg/m2 Kd Toledo DO Work Phone: [employer] 04-24-2022 15:34-0500 Body temperature 97.9 [degF] Kd Toledo DO Work Phone: [employer] 04-24-2022 15:34-0500 Body weight 90.72 kg Kd Cherrybour DO Work Phone: [employer] 04-24-2022 15:34-0500 Diastolic blood pressure 97 mm[Hg] Kd Cherrybour DO Work Phone: [employer] 04-24-2022 15:34-0500 Heart rate 82 /min Kd Cherrybour DO Work Phone: [employer] 04-24-2022 15:34-0500 Respiratory rate 20 /min Kd Cherrybour DO Work Phone: [employer] 04-24-2022 15:34-0500 SaO2% (BldA) [Mass fraction] 97 % Kd Cherrybour DO Work Phone: [employer] 04-24-2022 15:34-0500 Systolic blood pressure 122 mm[Hg] Kd Toledo DO Work Phone: [employer] 09-26-2021 16:19-0400 Diastolic blood pressure 66 mm[Hg] Miquel Porter MD Work Phone: [facility] 09-26-2021 16:19-0400 Systolic blood pressure 101 mm[Hg] Miquel Porter MD Work Phone: [facility] 09-26-2021 16:11-0400 Body temperature 97.39 [degF] Miquel Porter MD Work Phone: [facility] 09-26-2021 16:11-0400 Heart rate 80 /min Miquel Porter MD Work Phone: [facility] 09-26-2021 16:11-0400 Respiratory rate 14 /min Miquel Porter MD Work Phone: [facility] 09-26-2021 16:11-0400 SaO2% (BldA) [Mass fraction] 96 % Miquel Porter MD Work Phone: [facility] 09-26-2021 06:00-0400 Body mass index (BMI) [Ratio] 29.96 kg/m2 Miquel Porter MD Work Phone: [facility] 09-26-2021 06:00-0400 Body weight 94.7 kg Miquel Porter MD Work Phone: [facility] 09-23-2021 22:55-0400 Body height 177.8 cm Miquel Porter MD Work Phone: [facility] 07-26-2021 19:25-0400 Body height 177.8 cm Brittany Chou DO Work Phone: [facility] 07-26-2021 19:25-0400 Body mass index (BMI) [Ratio] 29.56 kg/m2 Brittany Chou DO Work Phone: [facility] 07-26-2021 19:25-0400 Body temperature 98.4 [degF] Brittany Chou DO Work Phone: [facility] 07-26-2021 19:25-0400 Body weight 93.44 kg Brittanyfartun Chou DO Work Phone: [employer] 07-26-2021 19:25-0400 Diastolic blood pressure 122 mm[Hg] Brittany José Antonio DO Work Phone: [facility] 07-26-2021 19:25-0400 Heart rate 110 /min Brittany José Antonio DO Work Phone: [facility] 07-26-2021 19:25-0400 Respiratory rate 20 /min Brittany José Antonio DO Work Phone: [facility] 07-26-2021 19:25-0400 SaO2% (BldA) [Mass fraction] 98 % Brittany José Antonio DO Work Phone: [facility] 07-26-2021 19:25-0400 Systolic blood pressure 161 mm[Hg] Brittany Chou DO Work Phone: [facility] 04-13-2021 15:44-0500 Diastolic blood pressure 99 mm[Hg] Prince Nesheim DO Work Phone: [facility] 04-13-2021 15:44-0500 Heart rate 94 /min Prince Nesheim DO Work Phone: [facility] 04-13-2021 15:44-0500 Respiratory rate 20 /min Prince Nesheim DO Work Phone: [facility] 04-13-2021 15:44-0500 SaO2% (BldA) [Mass fraction] 98 % Prince Nesheim DO Work Phone: [facility] 04-13-2021 15:44-0500 Systolic blood pressure 156 mm[Hg] Prince Nesheim DO Work Phone: [facility] 04-13-2021 11:22-0500 Body height 177.8 cm Prince Nesheim DO Work Phone: [facility] 04-13-2021 11:22-0500 Body mass index (BMI) [Ratio] 29.56 kg/m2 Prince Nesheim DO Work Phone: [facility] 04-13-2021 11:22-0500 Body temperature 98.2 [degF] Prince Nesheim DO Work Phone: [facility] 04-13-2021 11:22-0500 Body weight 93.44 kg Prince Nesheim DO Work Phone: [facility] 02-16-2021 06:00-0400 Body height 177.8 cm Josiah Castro MD Work Phone: [facility] Work Phone: 02-16-2021 06:00-0400 Body mass index (BMI) [Ratio] 29.41 kg/m2 Josiah Castro MD Work Phone: [facility] Work Phone: 02-16-2021 06:00-0400 Body temperature 98.4 [degF] Josiah Castro MD Work Phone: [facility] Work Phone: 02-16-2021 06:00-0400 Body weight 92.99 kg Josiah Castro MD Work Phone: [facility] Work Phone: 02-16-2021 06:00-0400 Diastolic blood pressure 111 mm[Hg] Josiah Castro MD Work Phone: [facility] Work Phone: 02-16-2021 06:00-0400 Heart rate 86 /min Josiah Castro MD Work Phone: [facility] Work Phone: 02-16-2021 06:00-0400 Respiratory rate 22 /min Josiah Castro MD Work Phone: [facility] Work Phone: 02-16-2021 06:00-0400 SaO2% (BldA) [Mass fraction] 100 % Josiah Castro MD Work Phone: [facility] Work Phone: 02-16-2021 06:00-0400 Systolic blood pressure 172 mm[Hg] Josiah Castro MD Work Phone: [facility] Work Phone: 12-28-2020 09:59-0400 Diastolic blood pressure 115 mm[Hg] Marquise Nair MD Work Phone: [facility] Work Phone: Comment on above: Dr. Nair notified 12-28-2020 09:59-0400 Heart rate 99 /min Marquise Nair MD Work Phone: [facility] Work Phone: 12-28-2020 09:59-0400 Respiratory rate 18 /min Marquise Nair MD Work Phone: [facility] Work Phone: 12-28-2020 09:59-0400 SaO2% (BldA) [Mass fraction] 100 % Marquise Nair MD Work Phone: [facility] Work Phone: 12-28-2020 09:59-0400 Systolic blood pressure 166 mm[Hg] Marquise Nair MD Work Phone: [facility] Work Phone: Comment on above: Dr. Nair notified 12-28-2020 09:07-0400 Body height 177.8 cm Marquise Nair MD Work Phone: [facility] Work Phone: 12-28-2020 09:07-0400 Body mass index (BMI) [Ratio] 30.13 kg/m2 Marquise Nair MD Work Phone: [facility] Work Phone: 12-28-2020 09:07-0400 Body temperature 98.6 [degF] Marquise Nair MD Work Phone: [facility] Work Phone: 12-28-2020 09:07-0400 Body weight 95.25 kg Marquise Nair MD Work Phone: [facility] Work Phone: 11-29-2020 14:20-0400 Body height 177.8 cm Naila Orozco MD Work Phone: [facility] Work Phone: 11-29-2020 14:20-0400 Body mass index (BMI) [Ratio] 30.42 kg/m2 Naila Orozco MD Work Phone: [facility] Work Phone: 11-29-2020 14:20-0400 Body temperature 98.1 [degF] Naila Orozco MD Work Phone: [facility] Work Phone: 11-29-2020 14:20-0400 Body weight 96.16 kg Naila Orozco MD Work Phone: [facility] Work Phone: 11-29-2020 14:20-0400 Diastolic blood pressure 110 mm[Hg] Naila Orozco MD Work Phone: [facility] Work Phone: 11-29-2020 14:20-0400 Heart rate 120 /min Naila Orozco MD Work Phone: [facility] Work Phone: 11-29-2020 14:20-0400 Respiratory rate 20 /min Naila Orozco MD Work Phone: [facility] Work Phone: 11-29-2020 14:20-0400 SaO2% (BldA) [Mass fraction] 96 % Naila Orozco MD Work Phone: [facility] Work Phone: 11-29-2020 14:20-0400 Systolic blood pressure 208 mm[Hg] Naila Orozco MD Work Phone: [facility] Work Phone: 07-05-2020 05:07-0400 Body Temperature 97.5 [degF] Jamison Goodrich DEANDRE Work Phone: 07-05-2020 05:07-0400 BP Diastolic 89 mm[Hg] Jamison Goodrich DEANDRE Work Phone: 07-05-2020 05:07-0400 BP Systolic 128 mm[Hg] Jamison CARRERA Work Phone: 07-05-2020 05:07-0400 Pulse (Heart Rate) 95 /min Jamison CARRERA Work Phone: 07-05-2020 05:07-0400 Pulse Oximetry 95 % Jamison CARRERA Work Phone: 07-05-2020 05:07-0400 Respiratory Rate 18 /min Jamison CARRERA Work Phone: 07-03-2020 23:00-0400 BMI (Body Mass Index) 30.85 kg/m2 Jamison Goodrich [employer] Work Phone: 07-03-2020 23:00-0400 Body weight 97.52 kg Jamison CARRERA Work Phone: 07-03-2020 23:00-0400 Height 177.8 cm Jamison Goodrich [employer] Work Phone: 04-05-2020 11:27-0500 BP Diastolic 112 mm[Hg] [facility] [place] 04-05-2020 11:27-0500 BP Systolic 162 mm[Hg] [facility] [employer] [facility] , [place] 04-05-2020 11:27-0500 Pulse (Heart Rate) 108 /min [facility] [employer] [facility], [place] 04-05-2020 11:27-0500 Pulse Oximetry 98 % [facility] [employer] [facility] , [place] 04-05-2020 11:27-0500 Respiratory Rate 20 /min [facility] [email or web address] [place] 04-05-2020 08:15-0500 Body Temperature 98.29 [degF] Naila [employer] [place] , [place] 11-18-2019 12:31-0400 BP Diastolic 109 mm[Hg] Basil Urban [employer] [facility] , [place] 11-18-2019 12:31-0400 BP Systolic 183 mm[Hg] Basil [employer] [facility] , [place] 11-18-2019 12:31-0400 Pulse (Heart Rate) 85 /min Basil RichardsonHalo [employer] [facility], [place] 11-18-2019 12:31-0400 Pulse Oximetry 98 % Basil Mercado [facility] , [place] 11-18-2019 10:10-0400 Respiratory Rate 20 /min Basil [facility] [place] 11-18-2019 08:41-0400 Body Temperature 98.29 [degF] Basil Mercado [facility] [place] , [place] 09-22-2019 09:18-0400 Height 167.6 cm Feliciano [facility] , [place] 09-22-2019 08:58-0400 Body Temperature 98.6 [degF] Feliciano Mercado [facility] [place] 09-22-2019 08:58-0400 BP Diastolic 115 mm[Hg] Fel[facility]o [facility] [place] , [place] 09-22-2019 08:58-0400 BP Systolic 160 mm[Hg] Feliciano Mejia [facility] [place] , [place] 09-22-2019 08:58-0400 Pulse (Heart Rate) 96 /min Fel[facility]o [facility]jia [facility] [place], [place] 09-22-2019 08:58-0400 Pulse Oximetry 95 % Fel[facility]o [facility]jia [facility] [place] 09-22-2019 08:58-0400 Respiratory Rate 22 /min Feliciano Mercado [facility], [place] 09-22-2019 02:57-0400 BMI (Body Mass Index) 26.63 kg/m2 Feliciano [facility], [place] 09-22-2019 02:57-0400 Body weight 74.84 kg Feliciano Mejia [facility] , [place] 09-21-2019 11:01-0400 BP Diastolic 111 mm[Hg] [facility] [place] [facility] [place] 09-21-2019 11:01-0400 BP Systolic 154 mm[Hg] [facility] [place] [facility] [place] 09-21-2019 11:01-0400 Pulse (Heart Rate) 91 /min [facility] [place] 09-21-2019 11:01-0400 Pulse Oximetry 100 % Hitesh [facility] , [place] 09-21-2019 09:18-0400 BMI (Body Mass Index) 26.63 kg/m2 Hitesh [facility], [place] 09-21-2019 09:18-0400 Body Temperature 97.81 [degF] Hitesh [facility], [place] 09-21-2019 09:18-0400 Body weight 74.84 kg Hitesh [facility] , [place] 09-21-2019 09:18-0400 Height 167.6 cm Hitesh [facility] , [place] 09-21-2019 09:18-0400 Respiratory Rate 16 /min Hitesh [facility], [place] 06-25-2019 17:54-0400 BP Diastolic 107 mm[Hg] [facility] [place] 06-25-2019 17:54-0400 BP Systolic 159 mm[Hg] Bijan [facility] , [place] 06-25-2019 17:54-0400 [facility]piratory Rate 14 /[facility] [place] 06-25-2019 16:35-0400 BMI (Body Mass Index) 23.96 kg/m2 [facility] [place] 06-25-2019 16:35-0400 Body Temperature 98.4 [degF] Bijan [facility], [place] 06-25-2019 16:35-0400 Body weight 75.75 kg Bijan [facility] , [place] 06-25-2019 16:35-0400 Height 177.8 cm Bijan [facility] , [place] 06-25-2019 16:35-0400 Pulse (Heart Rate) 61 /min [facility] [place] 06-25-2019 16:35-0400 Pulse Oximetry 98 % [facility] [place] 05-15-2019 20:10-0500 Body temperature 98.29 [degF] Kelvin Fernando MD Work Phone: [facility] Work Phone: 05-15-2019 20:10-0500 Diastolic blood pressure 102 mm[Hg] Kelvin Fernanod MD Work Phone: [facility] Work Phone: 05-15-2019 20:10-0500 Heart rate 94 /min Kelvin Fernando MD Work Phone: [facility] Work Phone: 05-15-2019 20:10-0500 Respiratory rate 20 /min Kelvin Fernando MD Work Phone: [facility] Work Phone: 05-15-2019 20:10-0500 SaO2% (BldA) [Mass fraction] 97 % Kelvin Fernando MD Work Phone: [facility] Work Phone: 05-15-2019 20:10-0500 Systolic blood pressure 127 mm[Hg] Kelvin Fernando MD Work Phone: [facility] Work Phone: Encounters Encounter Date Encounter Type Care Provider Facility Start: 12-28-2024 End: 12-29-2024 Refill Catalino Choudhary MD Work Phone: [facility] Addiction IOP Comment on above: PTSD (post-traumatic stress disorder); Generalized anxiety disorder; Alcohol withdrawal syndrome without complication (HCC) Start: 12-11-2024 End: 12-11-2024 Office outpatient visit 40 minutes Catalino Choudhary MD Work Phone: [facility] Comment on above: Severe alcohol use d isorder (HCC) (Primary Dx); Alcohol withdrawal syndrome without complication (HCC); Severe opioid use disorder on maintenance therapy (HCC); Severe opioid use disorder (HCC); Buprenorphine dependence (HCC); Tetrahydrocannabinol (THC) use disorder, severe, dependence (HCC); Severe tobacco use disorder; LEEANNE (generalized anxiety disorder); Complex posttraumatic stress disorder; Major depressive disorder, recurrent episode, moderate (HCC); Chronic pain disorder Start: 12-11-2024 End: 12-11-2024 ambulatory CATALINO CHOUDHARY [facility] Start: 12-03-2024 End: 12-03-2024 Telephone encounter Nieves Valedz MORTGAGE SPECIALIST - SWITCHBOARD CLERK Work Phone: [facility] [place] Comment on above: Care Coordination; H ospital Follow-up Start: 11-29-2024 End: 12-04-2024 Evaluation and management of inpatient Kelvin Fernando MD Work Phone: [facility] Epilepsy Monitoring Unit 3N Comment on above: Alcoholic intoxicati on without complication (CMS/HCC) (HCC) (Primary Dx); Fall, initial encounter; Closed head injury, initial encounter; Hypokalemia; Abnormal CT of the abdomen; Severe opioid use disorder on maintenance therapy (HCC) Start: 11-12-2024 End: 11-12-2024 Telephone encounter Catalino Choudhary MD Work Phone: [facility] Comment on above: Appointment Start: 10-17-2024 End: 10-17-2024 ambulatory [facility] Start: 10-17-2024 End: 10-17-2024 Subsequent hospital visit by physician Catalino Choudhary MD Work Phone: [facility] Addiction IOP Comment on above: Arrived Start: 09-19-2024 End: 09-19-2024 Subsequent hospital visit by physician Catalino Choudhary MD Work Phone: [facility] Addiction IOP Comment on above: Alcohol withdrawal s yndrome without complication (HCC); Severe opioid use disorder on maintenance therapy (HCC); Panic disorder Start: 09-19-2024 End: 09-19-2024 [facility] Start: 08-29-2024 End: 08-29-2024 [facility] Start: 08-29-2024 End: 08-29-2024 Office outpatient visit 40 minutes Catalino Choudhary MD Work Phone: [facility] Addiction IOP Comment on above: Alcohol withdrawal s yndrome without complication (HCC) (Primary Dx); Severe opioid use disorder on maintenance therapy (HCC); Panic disorder; Gastroesophageal reflux disease without esophagitis; PTSD (post-traumatic stress disorder); Generalized anxiety disorder; Encounter for monitoring Suboxone maintenance therapy; Severe cannabis use disorder (HCC); Severe stimulant use disorder (HCC); Tobacco use disorder; Generalized anxiety disorder with panic attacks; Major depressive disorder, recurrent episode, moderate (HCC); Schizoaffective disorder, unspecified type (HCC); Insomnia, unspecified type Start: 08-29-2024 End: 08-29-2024 Subsequent hospital visit by physician Catalino Choudhary MD Work Phone: [facility] Addiction IOP Comment on above: Arrived Start: 08-10-2024 End: 08-10-2024 Emergency department patient visit Ramesh Grimaldo MD Work Phone: [facility] ED Comment on above: Facial swelling (Ingrid kathy Dx) Start: 08-01-2024 End: 08-01-2024 Subsequent hospital visit by physician Catalino Choudhary MD Work Phone: [facility] Addiction IOP Comment on above: Panic disorder; Alcohol withdrawal syndrome without complication (HCC); Severe opioid use disorder on maintenance therapy (HCC) Start: 08-01-2024 End: 08-01-2024 [facility] Start: 07-04-2024 End: 07-04-2024 Subsequent hospital visit by physician Catalino Choudhary MD Work Phone: [facility] Addiction IOP Comment on above: Arrived Start: 07-04-2024 End: 07-04-2024 Office outpatient visit 40 minutes Catalino Choudhary MD Work Phone: [facility] Addiction IOP Comment on above: Severe opioid use di sorder on maintenance therapy (HCC) (Primary Dx); Alcohol withdrawal syndrome without complication (HCC); Panic disorder; PTSD (post-traumatic stress disorder); Generalized anxiety disorder; Generalized anxiety disorder with panic attacks; Gastroesophageal reflux disease without esophagitis; Opioid-induced constipation; Encounter for monitoring Suboxone maintenance therapy; Severe stimulant use disorder (HCC); Severe cannabis use disorder (HCC); Major depressive disorder, recurrent episode, moderate (HCC); Insomnia, unspecified type; Schizoaffective disorder, unspecified type (HCC); Tobacco use disorder Start: 07-04-2024 End: 07-04-2024 [facility] Start: 06-20-2024 End: 06-20-2024 [facility] Start: 06-20-2024 End: 06-20-2024 Subsequent hospital visit by physician Catalino Choudhary MD Work Phone: [facility] Addiction IOP Comment on above: Arrived Alcohol withdrawal s yndrome without complication (HCC) (Primary Dx); Severe alcohol use disorder (HCC); Severe opioid use disorder on maintenance therapy (HCC); PTSD (post-traumatic stress disorder); Generalized anxiety disorder; Generalized anxiety disorder with panic attacks; Panic disorder Start: 06-06-2024 End: 06-06-2024 ambulatory [facility] Start: 06-06-2024 End: 06-06-2024 Subsequent hospital visit by physician Catalino Choudhary MD Work Phone: [facility] Addiction IOP Comment on above: Generalized anxiety disorder with panic attacks Start: 05-30-2024 End: 11-21-2024 Telephone encounter Catalino Choudhary MD Work Phone: [facility] Clinical Communication Comment on above: Other (Patient needs medication changed and was told that it was not corrected by someone he spoke with someone named Eliza, patient stated she reworded their discussion and dismissed his medication. I tried to get him to a Triage nurse, but he felt it's been too long since he had his medication. So he was going to the ER. Thank you.) Start: 05-30-2024 End: 05-30-2024 Subsequent hospital visit by physician Catalino Choudhary MD Work Phone: [facility] Addiction IOP Comment on above: Alcohol withdrawal s yndrome without complication (HCC) (Primary Dx); PTSD (post-traumatic stress disorder); Generalized anxiety disorder; Severe opioid use disorder on maintenance therapy (HCC); Gastroesophageal reflux disease without esophagitis; Opioid-induced constipation; Severe alcohol use disorder (HCC) Start: 05-30-2024 End: 05-30-2024 [facility] Start: 05-27-2024 End: 05-28-2024 Emergency department patient visit Marquise Nair MD Work Phone: [facility] EMERGENCY DEPT Comment on above: Alcohol withdrawal s yndrome without complication (HCC) (Primary Dx); Opioid withdrawal (HCC); Dehydration; Palpitations; Noncompliance with medication regimen; Hypokalemia; Hypomagnesemia; Coarse tremors Start: 05-27-2024 End: 05-28-2024 Evaluation and management of inpatient [facility] Start: 05-24-2024 End: 05-24-2024 Office outpatient new 45 minutes Hai Clark MD Work Phone: Orthopaedics Comment on above: Displaced fracture o f greater tuberosity of right humerus, initial encounter for closed fracture (Primary Dx) Start: 05-24-2024 End: 05-24-2024 ambulatory HAI CLARK Facility:[facility] Start: 05-24-2024 End: 05-24-2024 Subsequent hospital visit by physician [facility] Work Phone: Radiology Comment on above: Chronic right should er pain [M25.511, G89.29] Start: 05-17-2024 End: 05-17-2024 Postop follow up visit related to original px Estefani Garces MD Work Phone: [facility] - [place] [place] Comment on above: Closed fracture of r ight hand with routine healing, subsequent encounter (Primary Dx); Other closed displaced fracture of proximal end of right humerus with delayed healing, subsequent encounter Start: 05-17-2024 End: 05-17-[address] [facility] Start: 05-15-2024 End: 05-15-2024 Orders Only Estefani Garces MD Work Phone: [facility] - [facility] [employer] Comment on above: Other closed displac ed fracture of proximal end of right humerus, initial encounter (Primary Dx); Closed displaced fracture of shaft of fourth metacarpal bone of left hand, initial encounter Start: 05-09-2024 End: 05-09-2024 Subsequent hospital visit by physician Catalino Choudhary MD Work Phone: [facility] Addiction IOP Comment on above: PTSD (post-traumatic stress disorder); Generalized anxiety disorder; Severe opioid use disorder on maintenance therapy (HCC); Gastroesophageal reflux disease without esophagitis; Opioid-induced constipation; Severe alcohol use disorder (HCC) Start: 05-09-2024 End: 05-09-2024 ambulatory [facility] Start: 05-09-2024 End: 05-09-2024 ambulatory [facility] Start: 04-30-2024 End: 04-30-[address] [facility] Start: 04-30-2024 End: 04-30-2024 Office outpatient visit 40 minutes Catalino Choudhary MD Work Phone: [facility] Addiction IOP Comment on above: Severe opioid use di sorder on maintenance therapy (HCC) (Primary Dx); Gastroesophageal reflux disease without esophagitis; PTSD (post-traumatic stress disorder); Generalized anxiety disorder; Encounter for monitoring Suboxone maintenance therapy; Severe stimulant use disorder (HCC); Severe cannabis use disorder (HCC); Major depressive disorder, recurrent episode, moderate (HCC); Insomnia, unspecified type; Schizoaffective disorder, unspecified type (HCC); Acute on chronic low back pain; Tobacco use disorder; LEEANNE (generalized anxiety disorder); Alcohol use disorder, severe, dependence (HCC); Opioid use disorder, severe, dependence (HCC) Start: 04-23-2024 End: 04-30-2024 ambulatory [facility] Start: 04-23-2024 End: 04-23-2024 Subsequent hospital visit by physician Catalino Choudhary MD Work Phone: [facility] Addiction IOP Start: 04-09-2024 End: 05-08-2024 Refill Catalino Choudhary MD Work Phone: [facility] [place] Comment on above: PTSD (post-traumatic stress disorder); Generalized anxiety disorder; Severe opioid use disorder on maintenance therapy (HCC) Start: 04-05-2024 End: 04-05-2024 Postop follow up visit related to original px Estefani Garces MD Work Phone: [facility] [place] [place] Comment on above: Other closed displac ed fracture of proximal end of right humerus, initial encounter Start: 04-05-2024 End: 04-05-[address] [facility] Start: 03-30-2024 End: 03-30-2024 ambulatory [facility] Start: 03-30-2024 End: 03-30-2024 Subsequent hospital visit by physician Catalino Choudhary MD Work Phone: [facility] Addiction IOP Start: 03-23-2024 End: 03-23-2024 ambulatory CATALINO CHOUDHARY [facility] Start: 03-23-2024 End: 03-23-2024 Office outpatient visit 40 minutes Catalino Choudhary MD Work Phone: [facility] Addiction IOP Comment on above: Severe opioid use di sorder on maintenance therapy (HCC) (Primary Dx); Gastroesophageal reflux disease without esophagitis; PTSD (post-traumatic stress disorder); Generalized anxiety disorder; Encounter for monitoring Suboxone maintenance therapy; Severe stimulant use disorder (HCC); Severe cannabis use disorder (HCC); Major depressive disorder, recurrent episode, moderate (HCC); Insomnia, unspecified type; Schizoaffective disorder, unspecified type (HCC); Acute on chronic low back pain; Lumbar herniated disc; History of methadone use; Tobacco use disorder; History of medication noncompliance; Alcohol use disorder, severe, in early remission, dependence (HCC); LEEANNE (generalized anxiety disorder) Start: 03-20-2024 End: 03-20-2024 Orders Only Estefani Garces MD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 02-11-2024 End: 02-11-2024 Ct maxillofacial w/o contrast material Betsy Anderson Frenandoaries DO Work Phone: Start: 02-11-2024 Radiologic exam ches t single view Betsy Campos DO Work Phone: Start: 02-08-2024 Ct abdomen & pelvis w/o contrast material Betsy Blum MD Work Phone: Start: 02-08-2024 Comprehensive metabo lic panel Betsy Blum MD Work Phone: Start: 02-08-2024 Drug test def 1-7 classes Betsy Blum MD Work Phone: Start: 02-08-2024 Manual Differential panel - Blood Betsy Blum MD Work Phone: Start: 02-08-2024 Ecg routine ecg w/le ast 12 lds trcg only w/o i&r Betsy Blum MD Work Phone: Start: 01-28-2024 Ct abdomen & pelvis w/o contrast material Lauri Dior MD Work Phone: Start: 01-28-2024 Radiologic exam ches t single view Lauri Dior MD Work Phone: Start: 01-28-2024 Comprehensive metabo lic panel Lauri Dior MD Work Phone: Start: 10-21-2023 Radex hand minimum 3 views Giovani Collado MD Work Phone: Start: 04-24-2023 Radiologic exam ches t single view Lauri Dior MD Work Phone: Start: 04-24-2023 Basic metabolic pane l calcium total Lauri Dior MD Work Phone: Start: 04-24-2023 Drug test def 1-7 classes Lauri Dior MD Work Phone: Start: 04-24-2023 SARS-COV-2, FLU A/B, AND RSV COMBO Lauri Dior MD Work Phone: Start: 04-24-2023 Ecg routine ecg w/le ast 12 lds trcg only w/o i&r Lauri Dior MD Work Phone: Start: 04-22-2023 Comprehensive metabo lic panel Shanice Helton MD Work Phone: Start: 04-22-2023 Manual differential performed [Presence] in Blood Shanice Helton MD Work Phone: Start: 04-21-2023 Ecg routine ecg w/le ast 12 lds trcg only w/o i&r Tamicamain Lezamas MORTGAGE SPECIALIST - SWITCHBOARD CLERK Work Phone: Start: 04-21-2023 Comprehensive metabo lic panel Shanice Helton MD Work Phone: Start: 04-21-2023 Manual differential performed [Presence] in Blood Shanice Helton MD Work Phone: Start: 04-20-2023 Drug test def 1-7 classes Enrrique Trevino MD Work Phone: Start: 04-20-2023 Respiratory pathogen s DNA and RNA panel - Nasopharynx by CONNOR with non-probe detection Shanice Helton MD Work Phone: Start: 04-20-2023 End: 04-20-2023 Smr prim src gram/giemsa stain bct fungi/cell Shanice Helton MD Work Phone: Start: 04-20-2023 Blood count complete automated Shanice Helton MD Work Phone: Start: 04-20-2023 Manual differential performed [Presence] in Blood Shanice Helton MD Work Phone: Start: 04-20-2023 Comprehensive metabo lic panel Shanice Helton MD Work Phone: Start: 04-19-2023 Assay of troponin quantitative Shanice Helton MD Work Phone: Start: 04-19-2023 Assay of troponin quantitative Shanice Helton MD Work Phone: Start: 04-19-2023 Iadna s aureus methi cillin resist amp probe tq Shanice Helton MD Work Phone: Start: 04-19-2023 Bacteria identified in Blood by Culture Kd Cherryrachel DO Work Phone: Start: 04-19-2023 Comprehensive metabo lic panel Hitesh AndreaDorsaVI Work Phone: Start: 04-19-2023 Drug test def 1-7 classes Hitesh Quach [employer] Work Phone: Start: 04-19-2023 Manual differential performed [Presence] in Blood Hitesh Quach [employer] Work Phone: Start: 04-19-2023 Ecg routine ecg w/le ast 12 lds trcg only w/o i&r Kd Schaffer Leonardo DO Work Phone: Start: 04-19-2023 SARS-COV-2, FLU A/B, AND RSV COMBO Hitesh Quach [employer] Work Phone: Start: 04-19-2023 Drug tst prsmv instr mnt chem analyzers pr date Hitesh Quach [employer] Work Phone: Start: 04-19-2023 Urinalysis complete panel - Urine Hitesh Quach [employer] Work Phone: Start: 04-19-2023 Urnls dip stick/tabl et reagent auto microscopy Hitesh Quach [employer] Work Phone: Start: 04-19-2023 Radiologic exam ches t single view Shanice Helton MD Work Phone: Start: 04-17-2023 Drug tst prsmv instr mnt chem analyzers pr date Anastacio Huerta MD Work Phone: Start: 04-17-2023 Iaad ia mult step me thod nos each organism Anastacio Huerta MD Work Phone: Start: 04-17-2023 Smr prim src gram/gi emsa stain bct fungi/cell Andrea Hanks MD Work Phone: Start: 04-17-2023 Bilirubin direct Andrea maldonado MD Work Phone: Start: 04-17-2023 C-reactive protein Andrea Hanks MD Work Phone: Start: 04-17-2023 Comprehensive metabo lic panel Anastacio Huerta MD Work Phone: Start: 04-17-2023 Manual differential performed [Presence] in Blood Anastacio Huerta MD Work Phone: Start: 04-17-2023 Lipid 1996 panel - S kacy or Plasma [facility] Start: 04-17-2023 Assay of troponin quantitative Marquise Nair MD Work Phone: Start: 04-17-2023 Lipid panel Anastacio varela MD Work Phone: Start: 04-16-2023 Radiologic exam ches t single view Marquise Nair MD Work Phone: Start: 04-16-2023 Basic metabolic pane l calcium total Marquise Nair MD Work Phone: Start: 04-16-2023 Drug test def 1-7 classes Marquise Nair MD Work Phone: Start: 04-16-2023 SARS-COV-2, FLU A/B, AND RSV COMBO Marquise Nair MD Work Phone: Start: 04-16-2023 Ecg routine ecg w/le ast 12 lds trcg only w/o i&r Marquise Nair MD Work Phone: Start: 02-03-2023 Comprehensive metabo lic panel Betsy Montalvo MD Work Phone: Start: 02-02-2023 Comprehensive metabo lic panel Betsy Montalvo MD Work Phone: Start: 02-01-2023 Ecg routine ecg w/le ast 12 lds trcg only w/o i&r Betsy Montalvo MD Work Phone: Start: 02-01-2023 Radiologic exam ches t single view Betsy Montalvo MD Work Phone: Start: 02-01-2023 OXYGEN THERAPY Silvino Quach [employer] MORTGAGE SPECIALIST - [employer]BOARD CLERK Work Phone: Start: 02-01-2023 Comprehensive metabo lic panel Betsy Montalvo MD Work Phone: Start: 01-31-2023 Blood gases any comb ination ph pco2 po2 co2 hco3 Kati Jacobo DO Work Phone: Start: 01-31-2023 OXYGEN THERAPY Silvino Quach [employer] MORTGAGE SPECIALIST - SW[employer]BOARD CLERK Work Phone: Start: 01-31-2023 Comprehensive metabo lic panel Maral Olivarez MORTGAGE SPECIALIST - SWITCHBOARD CLERK Work Phone: Start: 01-31-2023 Drug screen quantita tive vancomycin Maral Quach [employer] MORTGAGE SPECIALIST - SWITCHBOARD CLERK Work Phone: Start: 01-30-2023 OXYGEN THERAPY Silvino Quach [employer] MORTGAGE SPECIALIST - SWITCHBOARD CLERK Work Phone: Start: 01-30-2023 Echo tthrc r-t 2d w/wom-mode compl spec&colr d Maral Olivarez MORTGAGE SPECIALIST - SWITCHBOARD CLERK Work Phone: Start: 01-30-2023 Comprehensive metabo lic panel Maral Olivarez MORTGAGE SPECIALIST - SWITCHBOARD CLERK Work Phone: Start: 01-30-2023 Radiologic exam ches t single view Maral Olivarez MORTGAGE SPECIALIST - SWITCHBOARD CLERK Work Phone: Start: 01-30-2023 Iadna respiratry pro be & rev trnscr 12-25 target Maral Olivarez MORTGAGE SPECIALIST - [employer]BOARD CLERK Work Phone: Start: 01-30-2023 End: 01-30-2023 Smr prim src gram/giemsa stain bct fungi/cell Maral Olivarez APRN - SWITCHBOARD CLERK Work Phone: Start: 01-30-2023 Lactate dehydrogenase ldh Maral Olivarez MORTGAGE SPECIALIST - SWITCHBOARD CLERK Work Phone: Start: 01-30-2023 EXTRA TUBES Kati Jacobo DO Work Phone: Start: 01-30-2023 LIGHT GREEN TOP Aliaksa guillermina Jacobo DO Work Phone: Start: 01-29-2023 UNCONFIRMED DRUG SCREEN Maral Olivarez MORTGAGE SPECIALIST - SWITCHBOARD CLERK Work Phone: Start: 01-29-2023 Antinuclear antibodies ester Maral Olivarez MORTGAGE SPECIALIST - SWITCHBOARD CLERK Work Phone: Start: 01-29-2023 End: 01-29-2023 Iaad ia hiv-1 ag w/hiv-1 & hiv-2 antbdy single Maral Quach [employer] MORTGAGE SPECIALIST - SWITCHBOARD CLERK Work Phone: Start: 01-29-2023 Sedimentation rate r bc automated Maral Olivarez MORTGAGE SPECIALIST - SWITCHBOARD CLERK Work Phone: Start: 01-29-2023 Blood gases any comb ination ph pco2 po2 co2 hco3 Kati Jacobo DO Work Phone: Start: 01-29-2023 Comprehensive metabo lic panel Maral Olivarez MORTGAGE SPECIALIST - SWITCHBOARD CLERK Work Phone: Start: 01-29-2023 Drug test def 1-7 classes Maral Olivarez MORTGAGE SPECIALIST - SWITCHBOARD CLERK Work Phone: Start: 01-29-2023 OXYGEN THERAPY Maindbertrand bev Olivarez MORTGAGE SPECIALIST - SWITCHBOARD CLERK Work Phone: Start: 01-29-2023 Ct angiography chest w/contrast/noncontrast Julian Quispe MD Work Phone: Start: 01-29-2023 Bacteria identified in Blood by Culture Julian Quispe MD Work Phone: Start: 01-29-2023 Radiologic exam ches t single view Giovani Collado MD Work Phone: Start: 01-29-2023 Blood gases any comb ination ph pco2 po2 co2 hco3 Giovani Collado MD Work Phone: Start: 01-29-2023 End: 01-29-2023 Comprehensive metabolic panel Giovani Collado MD Work Phone: Start: 01-29-2023 SARS-COV-2, FLU A/B, AND RSV COMBO Giovani Collado MD Work Phone: Start: 10-10-2022 Radex hand minimum 3 views Betys Campos DO Work Phone: Start: 09-19-2022 Comprehensive metabo lic panel Bryce Landry MD Work Phone: Start: 09-18-2022 Glucose quantitative blood xcpt reagent strip Bryce Landry MD Work Phone: Start: 09-18-2022 Assay of troponin quantitative Bryce Landry MD Work Phone: Start: 09-18-2022 End: 09-18-2022 Iadna s aureus methicillin resist amp probe tq Bryce Landry MD Work Phone: Start: 09-18-2022 SARS-COV-2, FLU A/B, AND RSV COMBO Ene Sarabia DO Work Phone: Start: 09-18-2022 Urinalysis complete panel - Urine Eneav Sarabia DO Work Phone: Start: 09-18-2022 Urnls dip stick/tabl et reagent auto microscopy Ene Sarabia DO Work Phone: Start: 09-18-2022 POCT VENOUS BLOOD GA S UNSOLICITED RESULTS Ene Sarabia DO Work Phone: Start: 09-18-2022 Comprehensive metabo lic panel Ene Sarabia DO Work Phone: Start: 09-18-2022 End: 09-18-2022 Drug test def 1-7 classes Ene Ramirez ch DO Work Phone: Start: 09-18-2022 Radiologic exam ches t single view Ene Sarabia DO Work Phone: Start: 09-18-2022 Ecg routine ecg w/le ast 12 lds trcg only w/o i&r Keatonzenobiatracie Molina DO Work Phone: Start: 09-16-2022 Assay of troponin quantitative Sandor Nelson MD Work Phone: Start: 09-16-2022 Ecg routine ecg w/le ast 12 lds trcg only w/o i&r Sandor Nelson MD Work Phone: Start: 09-16-2022 Assay of lactate Prince G Nesheim DO Work Phone: Start: 09-16-2022 End: 09-16-2022 Bacteria identified in Blood by Culture Prince G Nesheim DO Work Phone: Start: 09-16-2022 Radiologic exam ches t single view Prince G Nesheim DO Work Phone: Start: 09-16-2022 Basic metabolic pane l calcium total Prince G Nesheim DO Work Phone: Start: 09-16-2022 Drug test def 1-7 classes Sandor Nelson MD Work Phone: Start: 09-16-2022 Ecg routine ecg w/le ast 12 lds trcg only w/o i&r Prince G Nesheim DO Work Phone: Start: 08-26-2022 Ecg routine ecg w/le ast 12 lds i&r only Basil Mariano MD Work Phone: Start: 08-26-2022 Comprehensive metabo lic panel Basil Mariano MD Work Phone: Start: 08-26-2022 End: 08-26-2022 Drug test def 1-7 classes Basil Mariano MD Work Phone: Start: 08-26-2022 SARS-CoV-2 (COVID-19 ) Ag [Presence] in Respiratory specimen by Rapid immunoassay Basil Mariano MD Work Phone: Start: 08-26-2022 Urinalysis complete panel - Urine Basil Mariano MD Work Phone: Start: 08-26-2022 Urnls dip stick/tabl et reagent auto microscopy Basil Mariano MD Work Phone: Start: 08-06-2022 Basic metabolic pane l calcium total Feliciano Leos MD Work Phone: Start: 08-06-2022 C-reactive protein Conrado Leos MD Work Phone: Start: 07-28-2022 Radiologic exam ches t single view Betsy Rain MD Work Phone: Start: 07-28-2022 Basic metabolic pane l calcium total Betsy Rain MD Work Phone: Start: 07-28-2022 Ecg routine ecg w/le ast 12 lds i&r only Betsy Rain MD Work Phone: Start: 05-10-2022 Radiologic exam ches t 2 views Feliciano Rushing MD Work Phone: Start: 04-24-2022 Radex hip unilateral with pelvis 2-3 views Kd Toledo DO Work Phone: Start: 09-25-2021 Ecg routine ecg w/le ast 12 lds w/i&r Loc Mckinney MD Work Phone: Start: 09-25-2021 Basic metabolic pane l calcium total Loc Mckinney MD Work Phone: Start: 09-24-2021 Assay of lactate Sebastian Mckinney MD Work Phone: Start: 09-24-2021 Assay of lactate Sebastian Mckinney MD Work Phone: Start: 09-24-2021 Basic metabolic pane l calcium total Brittany Shaub DO Work Phone: Start: 09-24-2021 Assay of lactate Sebastian Mckinney MD Work Phone: Start: 09-24-2021 End: 09-24-2021 Echo tthrc r-t 2d w/wom-mode compl spec&colr d Loc Mckinney MD Work Phone: Start: 09-24-2021 Ecg routine ecg w/le ast 12 lds w/i&r Loc Mckinney MD Work Phone: Start: 09-24-2021 Assay of lactate Sebastian Mckinney MD Work Phone: Start: 09-24-2021 VOLATILE PANEL, SERUM B mindy Mckinney MD Work Phone: Start: 09-24-2021 Drug tst prsmv instr mnt chem analyzers pr date Loc Mckinney MD Work Phone: Start: 09-24-2021 End: 09-24-2021 Iaad ia mult step method nos each organism Loc Mckinney MD Work Phone: Start: 09-24-2021 RESPIRATORY PANEL, MOLECULAR, WITH COVID-19 Loc Mckinney MD Work Phone: Start: 09-24-2021 STREP PNEUMONIAE ANTIGEN Loc Mckinney MD Work Phone: Start: 09-24-2021 Urnls dip stick/tabl et rgnt auto w/o microscopy Loc Mckinney MD Work Phone: Start: 09-24-2021 CULTURE, BLOOD 1 Sebastian Mckinney MD Work Phone: Start: 09-24-2021 Lipid 1996 panel - S kacy or Plasma Betsy Rain MD Work Phone: Start: 09-24-2021 Basic metabolic pane l calcium total Loc Mckinney MD Work Phone: Start: 09-24-2021 CK WITH REFLEX CK-MB Un known Provider Result Start: 09-24-2021 Lipid panel Unknown Pr ovider Result Start: 09-24-2021 Ecg routine ecg w/le ast 12 lds w/i&r Loc Mckinney MD Work Phone: Start: 09-24-2021 CARDIAC CATH NURSING LOG Physician Generic Start: 09-23-2021 ADD ON LAB TEST Loc Mckinney MD Work Phone: Start: 09-23-2021 Radiologic exam ches t single view Miquel Porter MD Work Phone: Start: 09-23-2021 Assay of ethanol Miquel Porter MD Work Phone: Start: 09-23-2021 Basic metabolic pane l calcium total Miquel Porter MD Work Phone: Start: 09-23-2021 Ecg routine ecg w/le ast 12 lds w/i&r Miquel Porter MD Work Phone: Start: 04-13-2021 Ecg routine ecg w/le ast 12 lds w/i&r Prince G Johannaheim Work Phone: Start: 04-13-2021 Computed tomography of abdomen and pelvis with contrast Prince G Nesheim DO Work Phone: Start: 04-13-2021 Comprehensive metabo lic panel Prince G Nesheim DO Work Phone: Start: 12-28-2020 Radex spine lumbosac ral 2/3 views Marquise Nair MD Work Phone: Start: 07-05-2020 Assay of ethanol Mikaela luisa Bartholomewmichoacano Work Phone: Start: 07-05-2020 Blood count complete automated Mikaelaluisa Villar Work Phone: Start: 07-05-2020 Comprehensive metabo lic panel Diana Esauabnerdavide Work Phone: Start: 07-04-2020 Mri spinal canal lum bar w/o contrast material Monica Stewart Work Phone: Start: 07-03-2020 BASIC METABOLIC PANE L W/ REFLEX TO MG FOR LOW K Monica Stewart Work Phone: Start: 07-03-2020 Blood count complete automated Monica Stewart Work Phone: Start: 07-03-2020 C-reactive protein Mo Stewart Work Phone: Start: 07-03-2020 Sedimentation rate r bc automated Monica Stewart Work Phone: Start: 07-03-2020 Drug screen class list a Jamison Goodrich Work Phone: Start: 07-03-2020 Urnls dip stick/tabl et rgnt auto w/o microscopy Jamison Goodrich Work Phone: Start: 07-03-2020 COVID-19 Jamison hernandez Work Phone: Start: 07-03-2020 COVID-19, RAPID Jamison Goodrich Work Phone: Start: 07-03-2020 Assay of ethanol Jamison Goodrich Work Phone: Start: 07-03-2020 Basic metabolic pane l calcium total Jamison Goodrich Work Phone: Start: 07-03-2020 Blood count complete auto&auto difrntl wbc Jamison Goodrich Work Phone: Start: 07-03-2020 Creatine kinase total M joey Goodrich Work Phone: Start: 07-03-2020 Hepatic function panel Jamison Goodrich Work Phone: Start: 06-06-2020 Radex hip unilateral with pelvis 2-3 views Teddy Sanford Work Phone: Start: 04-05-2020 Radiologic exam ches t single view Naila Orozco Work Phone: Start: 04-05-2020 Assay of lactate Naila Orozco Work Phone: Start: 04-05-2020 Assay of lipase Naila Orozco Work Phone: Start: 04-05-2020 Assay of troponin quantitative Naila Orozco Work Phone: Start: 04-05-2020 Basic metabolic pane l calcium total Naila Orozco Work Phone: Start: 04-05-2020 Blood count complete auto&auto difrntl wbc Naila Orozco Work Phone: Start: 04-05-2020 Hepatic function panel Naila Orozco Work Phone: Start: 04-05-2020 MANUAL DIFFERENTIAL Fortunato tiffanie Orozco Work Phone: Start: 04-05-2020 Ecg routine ecg w/le ast 12 lds w/i&r Naila Orozco Work Phone: Start: 11-18-2019 Ct cervical spine w/ o contrast material Darlyn N Polce Work Phone: Start: 11-18-2019 Ct head/brain w/o co ntrast material Darlyn N Polce Work Phone: Start: 11-18-2019 Blood count complete auto&auto difrntl wbc Basil Mariano Work Phone: Start: 11-18-2019 Comprehensive metabo lic panel Basil Huertao Work Phone: Start: 11-18-2019 Ecg routine ecg w/le ast 12 lds w/i&r Basil Richardsonando Work Phone: Start: 09-22-2019 CT ABDOMEN PELVIS W CONTRAST Feliciano Jackie Work Phone: Start: 09-22-2019 Assay of lipase Sandra s Jackie Work Phone: Start: 09-22-2019 Blood count complete automated Feliciano Mejia Work Phone: Start: 09-22-2019 Comprehensive metabo lic panel Feliciano Jackie Work Phone: Start: 09-21-2019 CT ABDOMEN PELVIS W CONTRAST Hitesh A Gombash Work Phone: Start: 09-21-2019 Assay of lactate Hitesh A Gombash Work Phone: Start: 09-21-2019 Assay of lipase Hitesh Corona Work Phone: Start: 09-21-2019 Blood count complete auto&auto difrntl wbc Hitesh Corona Work Phone: Start: 09-21-2019 Comprehensive metabo lic panel Hitesh Corona Work Phone: Start: 09-21-2019 MANUAL DIFFERENTIAL Maura Corona Work Phone: Start: 06-25-2019 Urnls dip stick/tabl et rgnt auto w/o microscopy Bijan Manzanares Work Phone: Start: 06-25-2019 Ct abdomen & pelvis w/o contrast material Bijan Manzanares Work Phone: Start: 06-25-2019 Basic metabolic pane l calcium total Bijan Manzanares Work Phone: Start: 06-25-2019 Blood count complete auto&auto difrntl wbc Bijan Manzanares Work Phone: Open reduction of fr acture with internal fixation BASIL WILKINS MD Comment on above: right hand & left wr ist Plan of Treatment Date Care Activity Detail Author Start: 2056 RSV Immunization for Adults (1 - 1-dose 75+ series) RSV Immunization for Adults (1 - 1-dose 75+ series) [facility] Start: 2041 RSV Immunization aged 60 or older (1 - 1-dose 60+ series) RSV Immunization aged 60 or older (1 - 1-dose 60+ series) [facility] Start: 02-22-2032 DTaP/Tdap/Td Vaccines (3 - Td or Tdap) DTaP/Tdap/Td Vaccines (3 - Td or Tdap) [facility] Start: 02-22-2032 Urine microalbumin profile DTaP,Tdap,Td Vaccine (3 - Td or Tdap) [facility] Start: 10-15-2031 Shingles Vaccine (1 of 2) Shingles Vaccine (1 of 2) [facility] Start: 10-15-2031 Zoster Vaccines (1 of 2) Zoster Vaccines (1 of 2) [facility] Start: 09-19-2028 DTaP/Tdap/Td vaccine (2 - Td or Tdap) DTaP/Tdap/Td vaccine (2 - Td or Tdap) [facility] Start: 09-19-2028 DTaP/Tdap/Td vaccine (2 - Td) DTaP/Tdap/Td vaccine (2 - Td) [facility] Work Phone: Start: 04-17-2028 Lipid panel [facility] Start: 09-24-2026 Lipid panel Lipid Panel [facility] Start: 01-01-2025 End: 01-01-2025 Patient encounter procedure 01/01/2025 12:00 PM EDT Office Visit [facility] [address] [facility] [address] [place] [phone] Catalino Choudhary MD [facility] [address] [place] [address] [facility] Start: 12-25-2024 End: 12-25-2024 Patient encounter procedure 12/25/2024 8:30 AM EDT Office Visit [facility] [place] [address] [phone] Steven Morgan PA-C [address] [facility] [address] [place] [address] [facility] [place] Start: 12-17-2024 COVID-19 Vaccine ( season) COVID-19 Vaccine ( season) [facility] Start: 12-17-2024 Influenza vaccination [facility] Start: 12-11-2024 End: 12-11-2024 Patient encounter procedure 12/11/2024 12:00 PM EDT Office Visit [facility] [address] [facility] [address] [place] [phone] Catalino Choudhary MD [address] [facility] [address] [place] [address] [facility] Start: 12-03-2024 End: 12-03-2024 ESOPHAGOGASTRODUODENOSCO PY, DIAGNOSTIC ESOPHAGOGASTRODUODENOSC OPY, DIAGNOSTIC Abnormal CT of the abdomen 12/03/2024 11:14 AM EDT [facility] Start: 10-17-2024 End: 10-17-2024 Patient encounter procedure 10/17/2024 1:00 PM EDT Appointment [facility] [address] [place] [address] Catalino Choudhary MD [address] [place] [address] [facility] Start: 09-24-2024 Diabetes screen Diabetes screen [facility] Start: 09-19-2024 End: 09-19-2024 Patient encounter procedure 09/19/2024 1:30 PM EDT Appointment [facility] [address] [place] [address] Catalino Choudhary MD [address] [place] [address] [facility] Start: 08-29-2024 End: 08-29-2024 Patient encounter procedure 08/29/2024 1:00 PM EDT Appointment [facility] [address] [place] [address] Catalino Choudhary MD [address] [place] [address] [facility] Start: 08-16-2024 Depression Monitoring Depression Monitoring [facility] Start: 08-01-2024 End: 08-01-2024 Patient encounter procedure [facility] Start: 07-04-2024 End: 07-04-2024 Patient encounter procedure [facility] Start: 06-20-2024 End: 06-20-2024 Patient encounter procedure [facility] Start: 06-06-2024 End: 06-06-2024 Patient encounter procedure [facility] Start: 05-30-2024 End: 05-30-2024 Patient encounter procedure 05/30/2024 12:30 PM EST Appointment [facility] [address] [place] [phone] Catalino Choudhary MD [address] [place], [place] [phone] [facility] Start: 05-17-2024 End: 05-15-2025 XR Hand - right 3 Views XR hand 3+ views right Imaging Routine Closed displaced fracture of shaft of fourth metacarpal bone of left hand, initial encounter Expected: 05/17/2024, Expires: 05/15/2025 [facility] Work Phone: Comment on above: Expected: 05/17/2024, Expires: Start: 05-17-2024 End: 05-15-2025 XR Shoulder - right 2 Views XR shoulder 2+ views right Imaging Routine Other closed displaced fracture of proximal end of right humerus, initial encounter Expected: 05/17/2024, Expires: 05/15/2025 [facility] Comment on above: Expected: 05/17/2024, Expires: Start: 05-17-2024 End: 05-17-2024 Patient encounter procedure 05/17/2024 9:00 AM EST Office Visit [facility] [place] [facility] [address] [facility] [address] [place] [phone] Estefani Garces MD [address] [facility] [address] [place] [address] [facility] [place] Start: 05-09-2024 End: 05-09-2024 Patient encounter procedure [facility] Start: 05-03-2024 End: 05-03-2024 Patient encounter procedure 05/03/2024 1:00 PM EST Appointment [facility] Op[facility] [place] [address] [place] [address] Antolin Luevano MD [address] [place] [address] Sapna Carranza MD [address] [place] [address] [facility] [place] Start: 04-23-2024 End: 04-23-2024 Patient encounter procedure [facility] [place] Start: 04-16-2024 Diabetes mellitus screening Diabetes Screening [facility] Start: 04-10-2024 End: 04-10-2024 ambulatory 04/10/2024 9:00 AM EST Evaluation [facility] at [address] [place] [phone] Estefani Garces MD [address] [facility] [address] [place] [address] Abimael Cox, PT [facility] Start: 04-05-2024 End: 04-05-2024 Patient encounter procedure 04/05/2024 9:00 AM EST Office Visit [facility] - [facility] [address] [facility] [address] [place] [address] Estefani Garces MD [address] [facility] [address] [place] [address] [facility] [place] Start: 03-30-2024 End: 03-30-2024 Patient encounter procedure 03/30/2024 11:00 AM EST Appointment [facility] [address] [place] [phone] Catalino Choudhary MD [address] [facility] [address] [place] [address] [facility] Start: 03-23-2024 End: 03-23-2024 Patient encounter procedure [facility] Start: 03-22-2024 End: 03-20-2025 XR Hand - right 3 Views XR hand 3+ views right Imaging Routine Other closed displaced fracture of proximal end of right humerus, initial encounter Closed displaced fracture of shaft of fourth metacarpal bone of left hand, initial encounter Expected: 03/22/2024, Expires: 03/20/2025 [facility] Comment on above: Expected: 03/22/2024, Expires: Start: 03-22-2024 End: 03-20-2025 XR Shoulder - right 2 Views XR shoulder 2+ views right Imaging Routine Other closed displaced fracture of proximal end of right humerus, initial encounter Expected: 03/22/2024, Expires: 03/20/2025 [facility] System Work Phone: Comment on above: Expected: 03/22/2024, Expires: Start: 03-22-2024 End: 03-22-2024 Patient encounter procedure 03/22/2024 9:00 AM EST Office Visit [facility] [place] [address] [facility] [address] [place] [phone] Estefani Garces MD [address] [facility] [address] [place] [address] [facility] [place] Start: 03-13-2024 End: 03-13-2024 Patient encounter procedure 03/13/2024 11:30 AM EST Office Visit [facility] [place] [address] [place] [address] Raiza Mcmillan APRN - SWITCHBOARD CLERK [address] [place] [address] [facility] [place] Start: 03-09-2024 End: 03-09-2024 Patient encounter procedure [facility] Start: 03-08-2024 End: 03-08-2024 Patient encounter procedure 03/08/2024 2:00 PM EST Office Visit [facility] [place] [address] [facility] [address] [place] [phone] Estefani Garces MD [address] [facility] [address] [place], [place] [phone] [facility] [place] Start: 03-06-2024 End: 03-06-2024 Patient encounter procedure 03/06/2024 9:15 AM EST Office Visit [facility] Sp[facility] [place] [address] [place] [phone] Leta Marcial MD [address] [place], [place] [phone] [facility] [place] Start: 03-02-2024 End: 03-02-2024 Patient encounter procedure [facility] [place] Start: 03-01-2024 Subsequent hospital visit by physician 03/01/2024 4:45 PM EST Hospital Encounter [facility] [address] [place] [address] Chela Tenorio, MORTGAGE SPECIALIST - SWITCHBOARD CLERK [address] [place], [place] [phone] [facility] CT Start: 02-27-2024 End: 02-12-2025 CT Head WO contrast CT head wo IV contrast Imaging Routine SAH (subarachnoid hemorrhage) (HCC) Expected: 02/27/2024, Expires: 02/12/2025 [facility] [employer] [facility] Work Phone: Comment on above: Expected: 02/27/2024, Expires: Start: 02-26-2024 End: 02-11-2025 CT Head WO contrast CT head wo IV contrast Imaging Routine SAH (subarachnoid hemorrhage) (HCC) Expected: 02/26/2024, Expires: 02/11/2025 [facility] [employer] [facility] Work Phone: Comment on above: Expected: 02/26/2024, Expires: Start: 02-24-2024 End: 02-24-2024 Patient encounter procedure 02/24/2024 1:00 PM EST Appointment [facility] [address] [place] [phone] Catalino Choudhary MD [address] [address] [facility] Start: 02-20-2024 End: 02-20-2024 Patient encounter procedure 02/20/2024 11:30 AM EST Appointment [facility] [address] [place] [address] Catalino Choudhary MD [address] [facility] [address] [place] [address] [facility] Start: 02-17-2024 End: 02-17-2024 Patient encounter procedure 02/17/2024 2:30 PM EDT Appointment [facility] [address] [place] [phone] Catalino Choudhary MD [address] [address] [facility] Start: 02-15-2024 End: 02-15-2024 Patient encounter procedure 02/15/2024 1:00 PM EDT Appointment [facility] [address] [place] [address] Catalino Choudhary MD [address] [address] Meek Carranza, [facility] Start: 02-14-2024 End: 02-14-2024 Patient encounter procedure 02/14/2024 11:00 AM EDT Appointment [facility] [place] [address] [facility] [address] [place] [phone] Sapna Carranza MD [address] [facility] [address] [place] [address] [facility] - [place] Start: 12-18-2023 COVID-19 Vaccine ( season) COVID-19 Vaccine ( season) [facility] Start: 12-18-2023 COVID-19 Vaccine ( season) COVID-19 Vaccine ( season) [facility] Start: 12-18-2023 Influenza vaccination Influenza Vaccine (#1) [facility] Start: 11-28-2023 End: 11-28-2023 Patient encounter procedure 11/28/2023 11:00 AM EDT Office Visit [facility] [address] [facility] [address] [place] [phone] Raul Troncoso PA-C [address] [facility] [address] [place], [place] [phone] [facility] Start: 11-22-2023 End: 11-21-2024 XR Hand - left 3 Views XR hand 3+ views left Imaging Routine Left hand pain Expected: 11/22/2023, Expires: 11/21/2024 [facility] System Work Phone: Comment on above: Expected: 11/22/2023, Expires: Start: 10-27-2023 End: 10-26-2024 XR Hand - left 3 Views [facility] Work Phone: Comment on above: Expected: 10/27/2023, Expires: Once for 1 Occurrenc es starting 10/27/2023 until 10/27/2023 Start: 12-17-2022 COVID-19 Vaccine ( season) COVID-19 Vaccine ( season) [facility] Start: 12-17-2022 Influenza vaccination [facility] Start: 09-24-2022 Diabetes mellitus screening Diabetes Screening [facility] Start: 09-24-2022 Lipid panel Lipids [facility] Start: 12-17-2021 Influenza vaccination [facility] Start: 10-02-2021 End: 10-02-2021 Evaluation and management of inpatient 10/02/2021 Office Visit Cardiology Luz Slaughter PA-C [address] [place] [address] [facility] Start: 07-05-2021 Creatinine measurement Creatinine monitoring [facility] Work Phone: Start: 07-05-2021 Potassium monitoring Potassium monitoring [facility] Work Phone: Start: 06-06-2021 Hepatitis C screening Hepatitis C screen [facility] Comment on above: Postponed from 1981 (Patient Refus ed) Start: 06-06-2021 HIV screening HIV screen [facility] Comment on above: Postponed from 1996 (Patient Refus ed) Start: 06-06-2021 Influenza vaccination Flu vaccine (#1) [facility] Work Phone: Comment on above: Postponed from 12/18/2019 (Patient Refus ed) Start: 06-06-2021 Pneumococcal 0-64 years Vaccine (1 of 1 - PPSV23) Pneumococcal 0-64 years Vaccine (1 of 1 - PPSV23) [facility] Work Phone: Comment on above: Postponed from 10/15/1987 (Patient Refus ed) Start: 06-06-2021 Pneumococcal 0-64 years Vaccine (1 of 2 - PPSV23) Pneumococcal 0-64 years Vaccine (1 of 2 - PPSV23) [facility] Comment on above: Postponed from 10/15/1987 (Patient Refus ed) Start: 04-05-2021 Creatinine measurement Creatinine monitoring [facility] Work Phone: Start: 04-05-2021 Potassium monitoring Potassium monitoring [facility] Work Phone: Start: 12-17-2020 Influenza vaccination Flu vaccine (#1) [facility] Start: 06-20-2020 End: 06-20-2020 Office Visit 06/20/2020 Office Visit Family Medicine Teddy Sanford MD [address], [place] [address] [phone] [facility] Start: 06-12-2020 End: 06-12-2020 Nurse Only 06/12/2020 Nurse Only Family Medicine [facility] Start: 12-18-2019 Influenza vaccination [place], [place] Start: 11-28-2019 HIV screen HIV screen [facility] Work Phone: Comment on above: Postponed from 1996 (Patient Refus ed) Start: 11-28-2019 HIV screening HIV screen [facility] [place] Comment on above: Postponed from 1996 (Patient Refus ed) Start: 11-28-2019 Pneumococcal 0-64 years Vaccine (1 of 1 - PPSV23) Pneumococcal 0-64 years Vaccine (1 of 1 - PPSV23) [facility] Work Phone: Comment on above: Postponed from 10/15/1987 (Patient Refus ed) Start: 12-17-2018 Influenza vaccination Flu vaccine (#1) [facility] Work Phone: Start: 2016 Diabetes screen Diabetes screen [facility] Start: 10-13-2006 IPV Vaccines (2 of 3 - Adult catch-up series) IPV Vaccines (2 of 3 - Adult catch-up series) [facility] Start: 10-13-2006 Varicella vaccination Varicella Vaccines (1 of 2 - 13+ 2-dose series) [facility] Start: 2000 Pneumococcal Vaccine: Pediatrics (0 to 5 Years) and At-Risk Patients (6 to 49 Years) (1 of 2 - PCV) Pneumococcal Vaccine: Pediatrics (0 to 5 Years) and At-Risk Patients (6 to 49 Years) (1 of 2 - PCV) [facility] Start: 10-15-1999 Anxiety Screening Anxiety Screening [facility] Start: 10-15-1999 Depression Screening Depression Screening [facility] Start: 10-15-1999 Hepatitis C screening [facility] Start: 10-15-1999 HIV screening HIV Screening [facility] Start: 1997 COVID-19 Vaccine (1) COVID-19 Vaccine (1) [facility] Work Phone: Start: 1996 HIV screening HIV screen [facility] Start: 1994 Varicella vaccination Varicella Vaccines (1 of 2 - 13+ 2-dose series) [facility] Start: 1993 COVID-19 Vaccine (1) COVID-19 Vaccine (1) [facility] Work Phone: Start: 1993 Depression Monitoring Depression Monitoring [facility] Start: 1993 Depresssion Monitoring Depresssion Monitoring [facility] Start: 10-15-1987 Pneumococcal 0-64 years Vaccine (1 - PCV) Pneumococcal 0-64 years Vaccine (1 - PCV) [facility] Start: 10-15-1987 Pneumococcal 0-64 years Vaccine (1 of 1 - PPSV23) Pneumococcal 0-64 years Vaccine (1 of 1 - PPSV23) [place] Start: 10-15-1987 Pneumococcal 0-64 years Vaccine (1 of 2 - PPSV23) Pneumococcal 0-64 years Vaccine (1 of 2 - PPSV23) [facility] Start: 10-15-1987 Pneumococcal Vaccine: Pediatrics (0 to 5 Years) and At-Risk Patients (6 to 64 Years) (1 - PCV) Pneumococcal Vaccine: Pediatrics (0 to 5 Years) and At-Risk Patients (6 to 64 Years) (1 - PCV) [facility] Start: 10-15-1987 Pneumococcal Vaccine: Pediatrics (0 to 5 Years) and At-Risk Patients (6 to 64 Years) (1 of 2 - PCV) Pneumococcal Vaccine: Pediatrics (0 to 5 Years) and At-Risk Patients (6 to 64 Years) (1 of 2 - PCV) [facility] Start: 1986 COVID-19 Vaccine (1) COVID-19 Vaccine (1) [facility] Start: 1982 MMR Vaccines (1 of 1 - Standard series) MMR Vaccines (1 of 1 - Standard series) [facility] Start: 1982 Varicella vaccination Varicella Vaccines (1 of 2 - 2-dose childhood series) [facility] Start: 04-15-1982 COVID-19 Vaccine (#1) COVID-19 Vaccine (#1) [facility] Start: 1981 Hepatitis C screening Hepatitis C screen [facility] Start: 1981 HIV screening HIV Screening [facility] Bacteria identified in Blood by Culture [facility] Work Phone: Bacteria identified in Blood by Culture [facility] Work Phone: Bacteria identified in Blood by Culture [facility] Work Phone: Bacteria identified in Blood by Culture Blood culture Site #1 - Suspected Infection Microbiology STAT 11/29/2024 6:53 PM EDT [facility] Work Phone: End: 09-18-2022 Bacteria identified in Lower respiratory specimen by Aerobe culture Respiratory culture and Stain Microbiology Routine Once (Lab) for 1 Occurrences starting 09/18/2022 until 09/18/2022 [facility] Work Phone: Comment on above: Once (Lab) for 1 Occurrences starting until 09/18/2022 End: 04-17-2023 Bacteria identified in Lower respiratory specimen by Aerobe culture Respiratory culture and Stain Microbiology Routine Once (Lab) for 1 Occurrences starting 04/17/2023 until 04/17/2023 [facility] Work Phone: Comment on above: Once (Lab) for 1 Occurrences starting until 04/17/2023 End: 09-27-2019 Basic Metabolic Panel w/ Reflex to MG Basic Metabolic Panel w/ Reflex to MG Lab Routine Tomorrow AM for 5 Occurrences starting 09/23/2019 until 09/27/2019 [facility] [place] Comment on above: Tomorrow AM for 5 Occurrences starting 0 09/23/2019 until 09/27/2019 End: 09-24-2021 Beta-Hydroxybutyrate Beta-Hydroxybutyrate Lab STAT One Time for 1 Occurrences starting 09/24/2021 until 09/24/2021 [facility] Work Phone: Comment on above: One Time for 1 Occurrences starting 12/2021 until 09/24/2021 Beta-Hydroxybutyrate Beta-Hydrox ybutyrate Lab STAT 09/24/2021 12:59 AM EDT [facility] Work Phone: End: 01-29-2023 Blood gases, arterial measurement Blood Gas, Arterial Lab STAT STAT (Lab) for 1 Occurrences starting 01/29/2023 until 01/29/2023 [facility] Work Phone: Comment on above: STAT (Lab) for 1 Occurrences starting until 01/29/2023 End: 01-31-2023 Blood gases, arterial measurement Blood Gas, Arterial Lab Routine Once (Lab) for 1 Occurrences starting 01/31/2023 until 01/31/2023 [facility] Work Phone: Comment on above: Once (Lab) for 1 Occurrences starting until 01/31/2023 End: 09-27-2019 CBC CBC Lab Routine Tomorrow AM for 5 Occurrences starting 09/23/2019 until 09/27/2019 [facility] [place] Comment on above: Tomorrow AM for 5 Occurrences starting 0 09/23/2019 until 09/27/2019 End: 07-09-2020 CBC CBC Lab Routine Daily for 5 Occurrences starting 07/05/2020 until 07/09/2020, 1 completed [facility] Work Phone: Comment on above: Daily for 5 Occurrences starting 021 until 07/09/2020, 1 completed End: 09-24-2021 CK WITH REFLEX CK-MB CK WITH REFLEX CK-MB Lab Routine Now Then Every 6hr for 1 Occurrences starting 09/24/2021 until 09/24/2021 [facility] Work Phone: Comment on above: Now Then Every 6hr for 1 Occurrences sta rting 09/24/2021 until 09/24/2021 CK WITH REFLEX CK-MB CK WITH REF JOJO CK-MB Lab Routine 09/24/2021 12:59 AM EDT [facility] Work Phone: End: 07-09-2020 Comprehensive metabolic 2000 panel Comprehensive Metabolic Panel Lab Routine Daily for 5 Occurrences starting 07/05/2020 until 07/09/2020, 1 completed [facility] Work Phone: Comment on above: Daily for 5 Occurrences starting 021 until 07/09/2020, 1 completed Culture, Blood 2 Culture, Blood 2 Microbiology STAT 09/24/2021 2:24 AM EDT [facility] Work Phone: End: 09-24-2021 Cyanocobalamin vitamin b-12 Vitamin B12 Lab Routine One Time for 1 Occurrences starting 09/24/2021 until 09/24/2021 [facility] Work Phone: Comment on above: One Time for 1 Occurrences starting 12/2021 until 09/24/2021 Cyanocobalamin vitam in b-12 Vitamin B12 Lab Routine 09/24/2021 12:59 AM EDT [facility] Work Phone: ECG 12 lead ECG 12 lead CV E CG STAT 09/16/2022 10:21 AM EDT [facility] Work Phone: ECG 12 lead ECG 12 lead CV E CG Routine 04/21/2023 12:01 PM EST [facility] Work Phone: ECHO Complete 2D W Doppler W Color ECHO Complete 2D W Doppler W Color Echocardiography Routine 09/24/2021 10:15 AM EDT [facility] Work Phone: EKG 12 Lead - Chest Pain [facility] [place] EKG 12 Lead - Chest Pain EKG 12 Lead - Chest Pain ECG STAT 04/13/2021 12:56 PM EST [facility] Work Phone: End: 09-24-2021 Ferritin [Mass/volume] in Serum or Plasma Ferritin Lab Routine One Time for 1 Occurrences starting 09/24/2021 until 09/24/2021 [facility] Work Phone: Comment on above: One Time for 1 Occurrences starting 12/2021 until 09/24/2021 Ferritin [Mass/volum e] in Serum or Plasma Ferritin Lab Routine 09/24/2021 12:59 AM EDT [facility] Work Phone: End: 12-03-2024 Helicobacter pylori Ag [Presence] in Stool by Immunoassay [facility] Work Phone: Comment on above: Once (Lab) for 1 Occurrences starting until 12/03/2024 End: 09-24-2021 Hemoglobin A1c/Hemoglobin.total in Blood Hemoglobin A1C Lab Routine One Time for 1 Occurrences starting 09/24/2021 until 09/24/2021 [facility] Work Phone: Comment on above: One Time for 1 Occurrences starting 12/2021 until 09/24/2021 Hemoglobin A1c/Hemoglobin.total in Blood Hemoglobin A1C Lab Routine 09/24/2021 12:59 AM EDT [facility] Work Phone: End: 01-29-2023 Hypersensitivity pnuemonitis profile [facility] [employer] Comment on above: Once (Lab) for 1 Occurrences starting until 01/29/2023 Initiate Oxygen Ther apy Protocol Initiate Oxygen Therapy Protocol Respiratory Care Routine Daily until discontinued starting 09/22/2019 [facility] on above: Daily until discontinued starting 2019 End: 01-29-2023 Lactic acid with reflex Lactic acid with reflex Lab Timed Once for 1 Occurrences starting 01/29/2023 until 01/29/2023 [facility] Work Phone: Comment on above: Once for 1 Occurrences starting 01/30/20 23 until 01/29/2023 End: 09-23-2019 Lipase Lipase Lab Routine Tomorrow AM for 1 Occurrences starting 09/23/2019 until 09/23/2019 [facility] Comment on above: Tomorrow AM for 1 Occurrences starting 0 09/23/2019 until 09/23/2019 End: 09-24-2021 Lipid panel Lipid Panel Lab Routine One Time for 1 Occurrences starting 09/24/2021 until 09/24/2021 [facility] Work Phone: Comment on above: One Time for 1 Occurrences starting 12/2021 until 09/24/2021 Lipid panel Lipid Panel Lab Routine 09/24/2021 12:59 AM EDT [facility] Work Phone: End: 02-14-2024 MEDICATION ASSISTED TREATMENT PANEL MEDICATION ASSISTED TREATMENT PANEL Lab Routine Once (Lab) for 1 Occurrences starting 02/14/2024 until 02/14/2024 [facility] Work Phone: Comment on above: Once (Lab) for 1 Occurrences starting until 02/14/2024 Microscopic examinat ion of blood, culture Culture, Blood Microbiology STAT 09/24/2021 2:24 AM EDT [facility] Work Phone: Open treatment proxi mal humeral fracture OPEN REDUCTION INTERNAL FIXATION PROXMAL HUMERUS Closed fracture of right hand, initial encounter Other closed displaced fracture of proximal end of right humerus, initial encounter [facility] Operating Room Oxygen therapy [Mini mum Data Set] Initiate Oxygen Therapy Protocol Respiratory Care Routine Daily until discontinued starting 07/03/2020 [facility] Work Phone: Comment on above: Daily until discontinued starting 2020 Oxygen therapy [Mini mum Data Set] Initiate Oxygen Therapy Protocol Respiratory Care Routine As Needed until discontinued starting 09/24/2021 [facility] Work Phone: Comment on above: As Needed until discontinued starting End: 09-24-2021 PHENCYCLIDINE (PCP), URINE PHENCYCLIDINE (PCP), URINE Lab Routine One Time for 1 Occurrences starting 09/24/2021 until 09/24/2021 [facility] Work Phone: Comment on above: One Time for 1 Occurrences starting 12/2021 until 09/24/2021 PHENCYCLIDINE (PCP), URINE PHENCYCLIDINE (PCP), URINE Lab Routine 09/24/2021 2:27 AM EDT [facility] Work Phone: End: 09-18-2022 Respiratory pathogens DNA and RNA panel - Lower respiratory specimen by CONNOR with non-probe detection Pneumonia PCR Panel Microbiology Routine Once (Lab) for 1 Occurrences starting 09/18/2022 until 09/18/2022 [facility] [employer] Comment on above: Once (Lab) for 1 Occurrences starting until 09/18/2022 Troponin I.cardiac [Mass/volume] in Serum or Plasma Troponin Lab Timed 09/24/2021 12:59 AM EDT [facility] Work [facility]: Troponin I.cardiac [Mass/volume] in Serum or Plasma Troponin Lab Timed 09/25/2021 12:34 AM EDT [facility] Work Phone: End: 09-21-2019 Urinalysis Urinalysis Lab STAT One Time for 1 Occurrences starting 09/21/2019 until 09/21/2019 [facility] [place] Comment on above: One Time for 1 Occurrences starting 08/2019 until 09/21/2019 End: 03-05-2024 US TRAUMA FAST POCUS [facility] [employer] Work Phone: Comment on above: Once for 1 Occurrences starting 03/05/20 24 until 03/05/2024 Immunizations Immunization Date Immunization Notes Care Provider Debra liu 04-19-2023 influenza vac subuni t quadrivalent (Flucelvax) injection 0.5 mL Hitesh Corona DO Work Phone: [facility] [employer] 04-18-2023 influenza vac subuni t quadrivalent (Flucelvax) injection 0.5 mL Marquise Nair MD Work Phone: [facility] 01-30-2023 influenza vac subuni t quadrivalent (Flucelvax) injection 0.5 mL Giovani Collado MD Work Phone: [facility] 02-21-2022 tetanus toxoid, redu holly diphtheria toxoid, and acellular pertussis vaccine, adsorbed Betsy Rain MD Work Phone: [facility] 09-19-2018 tetanus toxoid, redu holly diphtheria toxoid, and acellular pertussis vaccine, adsorbed Kelvin Fernando MD Work Phone: [facility] 02-17-2008 influenza virus vacc ine, unspecified formulation [facility] Work Phone: 02-07-2008 influenza virus vacc ine, unspecified formulation [facility] Work Phone: 10-27-2007 anthrax vaccine [facility] Work Phone: 05-11-2007 anthrax vaccine Betsy alegre MD Work Phone: [facility] [place] 05-11-2007 omani encephaliti s vaccine [facility]: 04-13-2007 anthrax vaccine Betsy alegre MD Work Phone: [facility] 03-28-2007 omani encephaliti s vaccine MO Betsy Rain MD Work Phone: [facility] [place] 03-21-2007 vaccinia (smallpox) vaccine Teddy [facility] Work Phone: 03-15-2007 anthrax vaccine Betsy alegre MD Work Phone: [facility] [place] 03-15-2007 hepatitis A and hepa titis B vaccine [facility] Work Phone: 03-15-2007 omani encephaliti s vaccine OFELIA Rain MD Work Phone: [facility] 03-15-2007 typhoid capsular polysaccharide vaccine [facility] Work Phone: 03-14-2007 influenza virus vacc ine, unspecified formulation [facility] Work Phone: 09-15-2006 hepatitis A and hepa titis B vaccine Betsy Rain MD Work Phone: [facility] 09-15-2006 poliovirus vaccine, inactivated Teddy Sanford [facility] Work Phone: 09-15-2006 yellow fever vaccine Teddy Sanford [facility] 09-15-2006 poliovirus vaccine, unspecified formulation [facility] 08-18-2006 hepatitis A and hepa titis B vaccine Betsy Rain MD Work Phone: [facility] 08-18-2006 meningococcal polysaccharide (groups A, C, Y and W-135) diphtheria toxoid conjugate vaccine (MCV4P) Teddy Sanford [facility] Work Phone: Payers Date Payer Category Payer Medicaid [employer] [id number] 2022 Private Health Insurance [id number] 2022 Medicaid [id number] 2022 Medicaid [id number] 2021 Unknown [id number] 2017 Unknown [id number] 2016 Self-pay 1981 Unknown [id number] 1981 Unknown [id number] 1981 Unknown [id number] Medicaid [id number] Social History Date Type Detail Facility Start: 06-25-2019 End: 02-13-2024 Tobacco smoking status SDIS Current every day smoker [facility] Start: 12-18-2023 History of tobacco use Cigarette Smo ker [facility] Work Phone: Start: 06-25-2019 End: 02-17-2024 Cigarettes smoked current (pack per day) - Reported [employer] Start: 06-25-2019 End: 12-03-2024 Alcohol intake Current drinker of alcohol (finding) [facility] Work Phone: Start: 05-15-2019 Alcohol Comment oc [facility] Work Phone: Start: 1980 Sex Assigned At Not on file S [employer] Work Phone: Exposure to SARS-CoV -2 (event) [facility] [place] Start: 05-07-2017 End: 11-18-2019 Tobacco use and exposure Current user [facility] [employer] [place] Start: 07-16-2021 End: 10-10-2022 Exposure to SARS-CoV-2 (event) Not sure [facility] [place] Start: 04-05-2020 Alcohol Comment daily. States not drank in 2 days [facility] [employer] [place] Start: 07-03-2020 Alcohol Comment 20 shots of fi reball daily [facility] Work Phone: Start: 11-29-2020 Alcohol Comment 20 shots wiske y, 50ml each per day to kill the pain. [facility] Work Phone: Start: 04-17-2021 History SDOH Alcohol Comment 1000ml of fireball daily to kill the pain (chronic right leg pain) [facility] Work Phone: Start: 07-28-2022 End: 08-10-2024 Alcohol intake Ex-drinker (finding) [facility] Start: 07-29-2022 End: 09-19-2022 History SDOH Alcohol Frequency 5 [facility] Start: 07-28-2022 Alcohol Comment 10 Shots of Whiskey/day [facility] Start: 08-27-2022 End: 09-19-2022 History SDOH IPV Fear 2 [facility] Start: 08-26-2022 Alcohol Comment 15 shots of whiskey [facility] Start: 03-08-2022 End: 09-16-2022 History SDOH Housing Places Lived 1 [facility] Start: 11-08-2018 Tobacco smoking status Heavy t obacco smoker (finding) [facility] Sex Assigned At Sex [facility] Start: 09-18-2022 End: 02-17-2024 Humiliation, Afraid, Rape, and Kick questionnaire [HARK] [facility] Within the last year , have you been afraid of your partner or ex-partner? No [facility] How often to you hav e a drink containing alcohol? Patient refused [facility] How often to you hav e a drink containing alcohol? 4 or more times a week [facility] How many standard dr inks containing alcohol do you have on a typical day? 5 or 6 [facility] How often do you hav e 6 or more drinks on 1 occasion? Daily or almost daily [facility] How many standard dr inks containing alcohol do you have on a typical day? 10 or more [facility] In the past 12 month s, was there a time when you were not able to pay the mortgage or rent on time? Yes [facility] Start: 04-24-2023 End: 02-13-2024 Tobacco use and exposure Smokeless tobacco non-user [facility] Start: 01-28-2024 Alcohol Comment 10-15 shots of whiskey [facility] Start: 11-16-2021 Sex Male (finding) [facility] Are you now , , , , never or living with a partner? Never [facility] How hard is it for y ou to pay for the very basics like food, housing, medical care, and heating Not very hard [facility] (I/We) worried bret er (my/our) food would run out before (I/we) got money to buy more. Never true [facility] Start: 03-08-2022 End: 05-10-2022 History SDOH Alcohol Std Drinks 0 [facility] How often to you hav e a drink containing alcohol? 2-3 time sa week [facility] How often do you hav e 6 or more drinks on 1 occasion? Weekly [facility] Start: 12-05-2018 Alcohol Comment social [facility] Start: 12-03-2024 Alcohol Comment 10-15 shots of whiskey per day [facility] Medical Equipment Procedure Code Equipment Code Equipment Origin al Text Equipment Identifier Dates Plate Va-Lcp Dis arsenio Radius [employer] 02.111.721 - [id number] Start: 04-26-2013 Screw Bn 2.4mm 1 6mm Lcp Ss - [id number] Start: 04-26-2013 Screw Bn 2.4mm 1 8mm Lcp Ss - [id number] Start: 04-26-2013 Screw Bn 2.4mm 2 0mm Lcp Ss - [id number] Start: 04-26-2013 Screw Bn 2.7mm 1 6mm Lcp Ss - [id number] Start: 04-26-2013 Screw Bn 2.7mm 1 8mm Lcp Ss - [id number] Start: 04-26-2013 Goals Date Patient Goal Desired Activity /State Personal health goal Comment on above: Formatting of this n ote might be different from the original. Help getting off everything Functional Status Date Assessment Result Facility 11-29-2024 Total score [AUDIT-C] 12 025 5:41 PM Gayatri Berry RN [facility] 09-25-2022 Functional Status Independent [facility] 09-24-2022 Functional Status Room check performed [facility] Mental Status Date Assessment Result Facility 09-25-2022 Mental Status Orientation Oriented x 4 [facility] 09-24-2022 Mental Status [facility] Clinical Notes 11-29-2020 to 12-11-2024 Catalino Choudhary MD - 12/11/2024 12:00 PM America Turner MD - 12/04/2024 3:47 PM Gia Charles RRT - 12/04/2024 2:59 PM Jake Lopez MD - 12/04/2024 11:29 AM EDTPatient Instructions Note Date & Type Note Facility 12-11-2024 History of Present illness Narrative Images from the original note were not included. ADDICTION MEDICINE PROGRESS NOTE Patient: El Smith Problem List: Active Problems: There are no active Hospital Problems. SUBJECTIVE Seen and examined. Recently admitted to [facility] after relapse on ETOH. Notes that relapse was due to anger and stress brought on by several issues but mainly due to the anniversary of his fathers passing. Pt was admitted from 11/29 to 12/04. Chemically detoxed with valium, ativan and haldol. Found to have duodenal ulcer which is likely 2/2 NSAID use which he uses for chronic pain which is not managed by suboxone alone. Notes that he is embarrassed by his recent relapse. No SI/HI or AVH. - OARRS reviewed, last suboxone prescribed 12/04/24 for 28 days by [facility] through [facility]. Review of Systems A 14 system ROS was collected and is negative unless otherwise noted above. OBJECTIVE Physical Exam Constitutional: Appearance: Normal appearance. HENT: Head: Normocephalic and atraumatic. Nose: Nose normal. Mouth/Throat: Mouth: Mucous membranes are moist. Eyes: Extraocular Movements: Extraocular movements intact. Pupils: Pupils are equal, round, and reactive to light. Cardiovascular: Rate and Rhythm: Normal rate and regular rhythm. Pulmonary: Effort: Pulmonary effort is normal. No respiratory distress. Abdominal: General: There is no distension. Palpations: Abdomen is soft. Musculoskeletal: General: No tenderness or deformity. Cervical back: Normal range of motion and neck supple. Skin: General: Skin is dry. Coloration: Skin is not jaundiced. Neurological: Mental Status: He is alert and oriented to person, place, and time. Cranial Nerves: No cranial nerve deficit. Psychiatric: Mood and Affect: Mood anxious. Behavior: Pacing office. Medications Home Meds Current Outpatient Medications Medication Instructions acamprosate (CAMPRAL) 666 mg, Oral, 3 times daily, Do not crush, chew, or split. acetaminophen (TYLENOL EXTRA STRENGTH) 1,000 mg, Oral, Every 8 hours PRN buprenorphine-naloxone (Suboxone) 8-2 MG per sublingual film 1 Film, SubLINGual, 2 times daily busPIRone (BUSPAR) 15 mg, Oral, Every 8 hours DSS 100 mg, Oral, 2 times daily naloxone (NARCAN) 4 mg, Nasal, PRN, May repeat every 2-3 minutes if needed, alternating nostrils, until medical assistance becomes available. pantoprazole (PROTONIX) 40 mg, Oral, 2 times daily, Do not crush, chew, or split. prazosin (MINIPRESS) 10 mg, Oral, Nightly QUEtiapine (SEROQUEL) 150 mg, Oral, Nightly sertraline (ZOLOFT) 150 mg, Oral, Daily Scheduled Inpatient Meds Scheduled Meds[1] PRN Inpatient Meds PRN Meds[2] Continuous Inpatient Infusions Continuous Meds[3] Recent Imaging ECG 12 lead Result Date: 12/01/2024 Sinus tachycardia Probable left atrial enlargement Nonspecific repol abnormality, lateral leads No change compared to previous ekg Electronically Signed On 12-01-2024 00:30:11 EDT by Ramesh Grimaldo CTA abdomen pelvis angiogram w and/or wo IV contrast Result Date: 11/30/2024 Patient Name: EL SMITH : 1980 Exam Date/Time: 11/30/2024 18:17 Procedure: CT ABDOMEN PELVIS ANGIOGRAM W AND/OR WO IV CONTRAST Ordering Provider: MONTALVO MICHAEL Reason For Exam: concern for GI bleed Indication: Concern for GI bleeding. FINDINGS: Unenhanced and enhanced abdomen pelvis performed using 75 mL Isovue-370. Dose reduction and automatic exposure control, 3-D imaging utilized. No free air or convincing bowel obstruction seen. There is thickening of the stomach and duodenum demonstrates a surrounding infiltration duodenal level. Also there is some thickening of the hepatic flexure of the colon. Note made of mild distention of bowel loops is some scattered air-fluid levels, nonspecific. No convincing active disease of spleen pancreas adrenals kidneys liver gallbladder urinary bladder. There is no convincing extravasation of contrast into bowel lumen. Impression: The etiology of symptoms not certain. Findings suspicious for inflammatory or infiltrative changes of the stomach, duodenum and hepatic flexure of the colon. Distended bowel scattered fluid levels etiology is not certain but may reflect an element of ileus. Follow-up or further evaluation recommended. Consider follow-up GI bleed scan for persistent symptoms of active bleeding. Report Dictated on Electronically Signed By: Dev Queen MD Electronically Signed Date/Time: 11/30/2024 7:[address] orbits/sella wo IV contrast Result Date: 11/29/2024 Patient Name: EL SMITH : 1980 [facility]#: [id number] Exam Date/Time: 11/29/2024 18:43 Procedure: CT ORBITS/SELLA/EAR WO IV CONTRAST Ordering Provider: FERNANDO NISHIT Reason For Exam: left eye injury CT ORBITS: CLINICAL INDICATION: Left eye injury. TECHNIQUE: Multidetector spiral transaxial sequence was performed through the orbits. Multiplanar reconstruction imaging was performed. Dose reduction was employed with automated exposure control. COMPARISON: 02/24/2024 FINDINGS: The globes are symmetrical and unremarkable. No intraconal or extraconal lesion is identified in the left or right. Normal symmetrical configuration of the extraocular muscles and optic nerves is noted. No orbital emphysema is identified. There is no evidence of fracture of the orbital hilario or rims. The remainder of the visualized osseous structures are unremarkable. There is posttraumatic deformities of the bilateral maxillary sinuses. The paranasal sinuses are clear. No acute abnormality of the orbits. Report Dictated on Electronically Signed By: Renato Rascon MD Electronically Signed Date/Time: 11/29/2024 6:55 PM EDT POCT glucose meter Result Date: 11/29/2024 Performed by: Deandre Guevara, [address] [place] [address] CLIA ID: [id number] CT head wo IV contrast Result Date: 11/29/2024 Patient Name: EL SMITH : 1980 Exam Date/Time: 11/29/2024 18:42 Procedure: CT HEAD WO IV CONTRAST Ordering Provider: FERNANDO NISHIT Reason For Exam: Trauma/Injury to Head CT HEAD: CLINICAL INDICATION: Headache, trauma TECHNIQUE: Transaxial CT sequence performed through the head with 3 mm reconstruction. Sagittal and Coronal reconstruction images included. Dose reduction was employed with automated exposure control. COMPARISON: None FINDINGS: Ventricles and sulci are normal in size and configuration for age. No extra-axial collection. No acute intracranial hemorrhage. No mass effect or midline shift. No CT evidence of an acute large territorial infarction. Imaged paranasal sinuses and mastoid air cells are well aerated. Calvarium is unremarkable. No acute intracranial hemorrhage or mass effect. Report Dictated on Electronically Signed By: Renato Rascon MD Electronically Signed Date/Time: 11/29/2024 6:49 PM EDT XR chest 1 view Result Date: 11/29/2024 Patient Name: EL SMITH : 1980 Exam Date/Time: 11/29/2024 18:20 Procedure: XR CHEST 1 VIEW Ordering Provider: FERNANDO NISHIT Reason For Exam: trauma INDICATION: Cough. Shortness of breath. Recent fall. VIEWS: Portable upright chest COMPARISON: 05/27/2024 FINDINGS: The trachea is midline. The heart is not enlarged. There is no confluent consolidation. The right hemidiaphragm is mildly elevated. No radiographic acute cardiopulmonary process. Report Dictated on Electronically Signed By: Chela Cleaning MD Electronically Signed Date/Time: 11/29/2024 6:30 PM EDT Labs No results found for this or any previous visit (from the past 24 hours). ASSESSMENT & PLAN Severe opioid use disorder Severe alcohol use disorder Stimulant use disorder, in remission Severe Cannabis use disorder Severe Tobacco use disorder Harm reduction Recent detox from 11/29 to 12/04 - relapse on ETOH Still smoking cigarettes - reported 1 PPD during recent admission Still using THC despite continued counseling against THC use. Compliant with suboxone 8mg SL TID Not compliant with Campral, states has been using it since discharge but often stops using it which is likely component to relapse. Continue to encourage cessation of tobacco and THC with each visit. OARRS reviewed and as appropriate Advised CD counseling - patient and mother refusing Advised to escalate aftercare to IOP - patient and mother refusing Continue suboxone 8mg SL TID Continue Campral 666mg PO TID LEEANNE MDD, Moderate, Recurrent Complex PTSD Insomnia Hx of SI w/o SA 2/2 chronic pain Lengthy mental health history No SI/HI or AVH Recent detox from 11/29 to 12/14 Klonopin will no longer be prescribed, patient understands that recent relapse has led to klonopin discontinuation. Strongly advised counseling - refused Plan to refer to psych for further mental health stabilization PLAN: Buspar to 15mg PO Q8H Seroquel 150mg PO at bedtime scheduled Prazosin 10mg PO at bedtime Zoloft 150mg PO Daily Chronic pain disorder: Multiple L spine disk bulges Lumbar spinal stenosis Chronic b/l sciatica Utilize suboxone for both OUD and chronic pain. No longer followed by ortho. Noncompliant about not smoking and attending PT/OT. Was over using NSAIDS leading to duodenal ulcer States he was taking PPI daily - unclear if actually taking Continue suboxone and Tylenol for pain Patient advised to NOT use ANY nsaids including but not limited to: aspirin, ibuprofen, motrin, naproxen, advil, aleve, naprosyn, celebrex, celecoxib, diclofenac, voltaren, indocin, indomethacin, toradol, ketorolac, mobid, meloxicam. Patient advised to limit tylenol to no more than 3000mg per day and that he should not use 3000mg per day for more than 2-3 days per week. Seen and examined as above. Lengthy discussion about need for counseling and further care. Pt and mother refusing stating that medications are helping and enough, he doesn't benefit from counseling. Pt transitioned to harm reduction due to noncompliance with recommendations including counseling, THC and EDA cessation. Klonopin discontinued with no intention to return patient to benzodiazepines due to relapse on ETOH. Pt was aware from the time of our first klonopin discussion that abuse, abnormal or adulterated urine or relapse would end klonopin prescribing. He voices understanding. Unfortunately, due to lack of compliance and poor social support Mr. Smith is considered very high risk. A total of 45 minutes were spent reviewing the patient's records, evaluating the patient, entering orders, coordinating care with the treatment team, and creating this note. [1] [2] [3] documented in this encounter [facility] 12-04-2024 Hospital course Narrative Hospitalist Discharge Summary El Smith : 1980 Admit date: 11/29/2024 Discharge date: 12/04/2024 Admitting Physician: Betsy Montalvo MD Primary Care Physician: No primary care provider on file. Code Status: Full Code Discharge Diagnoses: EtOH withdrawal Duodenal ulcer Hyponatremia Hypocalcemia Microcytic anemia History of polysubstance abuse Hypertension HLD History of CAD Hospital Course: Patient is a 44 y/o male with a PMHx of HTN, HLD, CAD c/b VA s/p stents, anxiety, depression, chronic pain, DDD, opiate use, ETOH use, tobacco use (1 PPD), marijuana use. Presented to [facility] ED on 11/29 for a fall after a 10 day binge of drinking mostly 100 proof alcohol. Last drink 11/29/24.. Developed EOTH withdrawal sx and required haldol, valium, and ativan. Noted to have bloody stools. CTA neg for bleed but suspicious for inflammatory/infiltrated changes of stomach, duodenum, and hepatic flexure of colon. CXR, CTH neg. Patient admitted to [facility] ICU for alcohol withdrawal management. Started on PHB, ativan PRN, folate, and thiamine. ADM consulted and started on suboxone. Underwent EGD and noted to have large duodenal ulcers. Patient transferred out of ICU. Placed on PPI twice daily. Discussed with Dr. Lopez who was okay with patient being discharged. Recommended 28-day course of Suboxone and follow-up with ADM as outpatient. Patient and his mother insisting on going home today. Counseled regarding alcohol cessation. Patient agreeable. Will need outpatient follow-up with GI and close follow-up with his PCP. Consults: GI, ADM Discharge Instructions: Diet: Dietary Orders (From admission, onward) Start Ordered 12/03/24 1147 Adult diet Regular; 1800 ml Diet effective now Question Answer Comment Diet type Regular Dietary fluid restriction / 24h (7A-7A): 1800 ml 12/03/24 1147 Activity: as tolerated Recommended Outpatient Tests: Disposition: Patient discharged in stable condition to Home. Greater than 31 minutes spent discharging the patient and coming up with patient discharge plan. Vitals: BP (!) 138/102 (BP Location: Left arm, Patient Position: Lying) Pulse 103 Temp 36.1 C (97 F) (Temporal) Resp 16 Ht 5' 10 (1.778 m) Wt 165 lb (74.8 kg) SpO2 96% BMI 23.68 kg/m Pulse Ox: SpO2 Av % Min: 96 % Max: 96 % Supplemental O2: Physical Exam Cardiovascular: Rate and Rhythm: Normal rate. Pulmonary: Effort: Pulmonary effort is normal. Neurological: General: No focal deficit present. Mental Status: He is alert and oriented to person, place, and time. Discharge Medications: Medication List START taking these medications buprenorphine-naloxone 8-2 MG per sublingual film Commonly known as: Suboxone Place 1 Film under the tongue 2 times daily for 28 days. pantoprazole 40 MG EC tablet Commonly known as: ProtoNix Take 1 tablet (40 mg) by mouth 2 times daily. Do not crush, chew, or split. CONTINUE taking these medications acamprosate 333 MG EC tablet Commonly known as: Campral Take 2 tablets (666 mg) by mouth 3 times daily. Do not crush, chew, or split. acetaminophen 500 MG tablet Commonly known as: Tylenol Extra Strength Take 2 tablets (1,000 mg) by mouth every 8 hours as needed for mild pain (1-3), moderate pain (4-6) or headaches. busPIRone 15 MG tablet Commonly known as: Buspar Take 1 tablet (15 mg) by mouth every 8 hours. DSS 100 MG capsule Take 1 capsule (100 mg) by mouth 2 times daily. naloxone 4 MG/0.1ML nasal spray Commonly known as: Narcan Administer 1 spray (4 mg) into affected nostril(s) as needed for opioid reversal. May repeat every 2-3 minutes if needed, alternating nostrils, until medical assistance becomes available. prazosin 5 MG capsule Commonly known as: Minipress Take 2 capsules (10 mg) by mouth Nightly. QUEtiapine 50 MG tablet Commonly known as: SEROquel Take 3 tablets (150 mg) by mouth Nightly. sertraline 50 MG tablet Commonly known as: Zoloft Take 3 tablets (150 mg) by mouth daily. STOP taking these medications clonazePAM 0.25 MG disintegrating tablet Commonly known as: KlonoPIN omeprazole [address] capsule Commonly known as: PriLOSEC Where to Get Your Medications These medications were sent to [facility] [address] [id number] buprenorphine-naloxone 8-2 MG per sublingual film pantoprazole 40 MG EC tablet Recommended Follow-up: Steven Morgan PA-C [address] [place] [address] [address] [facility] [id number] Follow up on 12/25/2024 You have an office visit scheduled 12/25/2024 at 8:30 am. Catalino Choudhary MD [address] [place] [address] [address] [facility] [phone] Follow up in 4 week(s) Complexity of Follow up: [] Moderate Complexity: follow up within 7-14 calendar days (48944) [x] Severe Complexity: follow up within 7 calendar days (69341) Follow up Testing, Pending results or Referrals at Transitional Care Visit: [x] yes [] no Instructions to MA: Please call patient on day after discharge (must document patient contacted within 2 business days of discharge). Follow up questions for MA: 1. Did you get medications filled and taking them as instructed from discharge? 2. Are you following your discharge instructions from your hospital stay? 3. Please confirm patient is scheduled for a follow up appointment within the above time frame. Signed: Elena Hubbard MD Division of Hospitalist Medicine [facility] 12/04/2024, 4:48 PM documented in this encounter [facility] 12-04-2024 Note [facility] 12-04-2024 Note Patient declined smo cassie cessation counseling. Accepting of handout with contact information for future reference. [facility] [employer] [facility] 12-04-2024 History of Present illness Narrative Patient declined smoking cessation counseling. Accepting of handout with contact information for future reference. Images from the original note were not included. ADDICTION MEDICINE PROGRESS NOTE I saw and evaluated the patient on 12/04 . I reviewed the residents evaluation and agree with plan to continue detox regimen, investigate treatment options. I did spend -50---minutes meeting with the patient,coordinating care, providing discussion on patient's medical, psychiatric and chemical dependency history, and discussion of treatment plan Attestation above completed by me, Dr. Lopez Patient: El Smith Problem List: Principal Problem: Alcoholic intoxication without complication (CMS/HCC) (HCC) SUBJECTIVE Chief Complaint Patient presents with Alcohol Intoxication Fall Last 4 CIWA scores per RN assessments No CIWA scores recorded today; last CIWA score was 8 at 2100 Interim History Patient is seen in follow up for alcohol/BZD, and opioid use disorder(s) and medical management of detox. Medically admitted for complicated sedative withdrawal, initially requiring ICU level of care but has since been stepped down. Last reported use of ethanol or other substances was [employer] (11/29). On assessment today, the patient reports that he is doing well and denies sedative withdrawal sx. Specifically denies tremor, nausea/emesis, malaise, anxiety, diaphoresis, tremor, AVH, paresthesias or significant changes in mentation. He is largely pleasant on evaluation and we discussed his Lego collection. When asked, denies any primary medical complaints or issues. Denies SI/HI. Interested in returning home when possible. Planning to follow up with Dr. Choudhary for IOP, as well as MAT (acamprosate, suboxone). Review of Systems Review of Systems Constitutional: Negative for diaphoresis and malaise/fatigue. Cardiovascular: Negative for chest pain. Respiratory: Negative for shortness of breath. Gastrointestinal: Negative for nausea and vomiting. Neurological: Negative for focal weakness, tremors and weakness. Psychiatric/Behavioral: Negative for altered mental status, depression, hallucinations, suicidal ideas and thoughts of violence. OBJECTIVE Vitals Vitals: 12/03/24 2018 12/03/24 2100 12/03/24 2222 12/04/24 0806 BP: (!) 140/105 (!) 140/101 (!) 146/103 (!) 138/102 BP Location: Right arm Left arm Patient Position: Sitting Lying Pulse: 104 102 99 103 Resp: 14 12 16 16 Temp: (!) 35.3 C (95.5 F) 36.1 C (97 F) TempSrc: Temporal Temporal SpO2: 96% 96% Weight: Height: Physical Exam Constitutional: General: He is not in acute distress. Appearance: He is not diaphoretic. HENT: Head: Normocephalic and atraumatic. Eyes: Extraocular Movements: Extraocular movements intact. Cardiovascular: Rate and Rhythm: Regular rhythm. Tachycardia present. Pulmonary: Effort: No respiratory distress. Abdominal: General: There is no distension. Musculoskeletal: General: Normal range of motion. Neurological: General: No focal deficit present. Mental Status: He is alert and oriented to person, place, and time. Motor: Tremor present. Psychiatric: Mood and Affect: Mood normal. Behavior: Behavior normal. Thought Content: Thought content normal. Judgment: Judgment normal. Medications Home Meds Current Outpatient Medications Medication Instructions acamprosate (CAMPRAL) 666 mg, Oral, 3 times daily, Do not crush, chew, or split. acetaminophen (TYLENOL EXTRA STRENGTH) 1,000 mg, Oral, Every 8 hours PRN busPIRone (BUSPAR) 15 mg, Oral, Every 8 hours clonazePAM (KLONOPIN) 0.25 mg, Oral, 3 times daily PRN DSS 100 mg, Oral, 2 times daily naloxone (NARCAN) 4 mg, Nasal, PRN, May repeat every 2-3 minutes if needed, alternating nostrils, until medical assistance becomes available. omeprazole (PRILOSEC) 40 mg, Oral, Daily before breakfast, Do not crush or chew. prazosin (MINIPRESS) 10 mg, Oral, Nightly QUEtiapine (SEROQUEL) 150 mg, Oral, Nightly sertraline (ZOLOFT) 150 mg, Oral, Daily Scheduled Inpatient Meds Scheduled Meds[1] PRN Inpatient Meds PRN Meds[2] Continuous Inpatient Infusions Continuous Meds[3] Recent Imaging ECG 12 lead Result Date: 12/01/2024 Sinus tachycardia Probable left atrial enlargement Nonspecific repol abnormality, lateral leads No change compared to previous ekg Electronically Signed On 12-01-2024 00:30:11 EDT by Ramesh Grimaldo CTA abdomen pelvis angiogram w and/or wo IV contrast Result Date: 11/30/2024 Patient Name: EL SMITH : 1980 Exam Date/Time: 11/30/2024 18:17 Procedure: CT ABDOMEN PELVIS ANGIOGRAM W AND/OR WO IV CONTRAST Ordering Provider: MONTALVO MICHAEL Reason For Exam: concern for GI bleed Indication: Concern for GI bleeding. FINDINGS: Unenhanced and enhanced abdomen pelvis performed using 75 mL Isovue-370. Dose reduction and automatic exposure control, 3-D imaging utilized. No free air or convincing bowel obstruction seen. There is thickening of the stomach and duodenum demonstrates a surrounding infiltration duodenal level. Also there is some thickening of the hepatic flexure of the colon. Note made of mild distention of bowel loops is some scattered air-fluid levels, nonspecific. No convincing active disease of spleen pancreas adrenals kidneys liver gallbladder urinary bladder. There is no convincing extravasation of contrast into bowel lumen. Impression: The etiology of symptoms not certain. Findings suspicious for inflammatory or infiltrative changes of the stomach, duodenum and hepatic flexure of the colon. Distended bowel scattered fluid levels etiology is not certain but may reflect an element of ileus. Follow-up or further evaluation recommended. Consider follow-up GI bleed scan for persistent symptoms of active bleeding. Report Dictated on Electronically Signed By: Dev Queen MD Electronically Signed Date/Time: 11/30/2024 7:[address] orbits/sella wo IV contrast Result Date: 11/29/2024 [facility] 1980 [id number] Exam Date/Time: 11/29/2024 18:43 Procedure: CT ORBITS/SELLA/EAR WO IV CONTRAST Ordering Provider: FERNANDO NISHIT Reason For Exam: left eye injury CT ORBITS: CLINICAL INDICATION: Left eye injury. TECHNIQUE: Multidetector spiral transaxial sequence was performed through the orbits. Multiplanar reconstruction imaging was performed. Dose reduction was employed with automated exposure control. COMPARISON: 02/24/2024 FINDINGS: The globes are symmetrical and unremarkable. No intraconal or extraconal lesion is identified in the left or right. Normal symmetrical configuration of the extraocular muscles and optic nerves is noted. No orbital emphysema is identified. There is no evidence of fracture of the orbital hilario or rims. The remainder of the visualized osseous structures are unremarkable. There is posttraumatic deformities of the bilateral maxillary sinuses. The paranasal sinuses are clear. No acute abnormality of the orbits. Report Dictated on Electronically Signed By: Renato Rascon MD Electronically Signed Date/Time: 11/29/2024 6:55 PM EDT POCT glucose meter Result Date: 11/29/2024 Performed by: [facility], [address] [place] [address] CLIA ID: [id number] CT head wo IV contrast Result Date: 11/29/2024 [facility]: [facility] 1980 [id number] Exam Date/Time: 11/29/2024 18:42 Procedure: CT HEAD WO IV CONTRAST Ordering Provider: FERNANDO NISHIT Reason For Exam: Trauma/Injury to Head CT HEAD: CLINICAL INDICATION: Headache, trauma TECHNIQUE: Transaxial CT sequence performed through the head with 3 mm reconstruction. Sagittal and Coronal reconstruction images included. Dose reduction was employed with automated exposure control. COMPARISON: None FINDINGS: Ventricles and sulci are normal in size and configuration for age. No extra-axial collection. No acute intracranial hemorrhage. No mass effect or midline shift. No CT evidence of an acute large territorial infarction. Imaged paranasal sinuses and mastoid air cells are well aerated. Calvarium is unremarkable. No acute intracranial hemorrhage or mass effect. Report Dictated on Electronically Signed By: Renato Rascon MD Electronically Signed Date/Time: 11/29/2024 6:49 PM EDT XR chest 1 view Result Date: 11/29/2024 [facility]: [facility] 1980 [id number] Exam Date/Time: 11/29/2024 18:20 Procedure: XR CHEST 1 VIEW Ordering Provider: FERNANDO NISHIT Reason For Exam: trauma INDICATION: Cough. Shortness of breath. Recent fall. VIEWS: Portable upright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 Basophils Absolute 0.1 0.0 - 0.2 10*3/uL Immature Grans Absolute 0.0 <0.1 10*3/uL Comprehensive metabolic panel Collection Time: 12/03/24 9:01 AM Result Value Ref Range SODIUM 131 (L) 136 - 145 mmol/L POTASSIUM 3.9 3.5 - 5.1 mmol/L CHLORIDE 100 98 - 107 mmol/L CARBON DIOXIDE 23 22 - 29 mmol/L ANION GAP 8 3 - 13 mmol/L UREA NITROGEN 14 8 - 21 mg/dL CREATININE 0.67 (L) 0.72 - 1.25 mg/dL GLUCOSE 83 74 - 100 mg/dL CALCIUM 7.8 (L) 8.4 - 10.2 mg/dL AST (SGOT) 31 <34 U/L ALT 11 <40 U/L ALKALINE PHOSPHATASE 92 40 - 150 U/L ALBUMIN 2.7 (L) 3.5 - 5.0 g/dL BILIRUBIN, TOTAL 0.4 <1.2 mg/dL TOTAL PROTEIN 5.9 (L) 6.4 - 8.3 g/dL eGFR >90.0 >60.0 mL/min/1.73m*2 Ferritin Collection Time: 12/03/24 9:01 AM Result Value Ref Range FERRITIN 39 22 - 275 ng/mL Assessment & Plan Opioid use disorder in remission Alcohol use disorder Benzodiazepine dependences Counseled patient on biopsychosocial consequences of substance use. Encouraged professional chemical dependency treatment. Encouraged 12 step meeting attendance. Addiction treatment plan with patient: Patient likely to continue with Dr. Kenrick CARMONA and MAT Alcohol withdrawal Benzodiazepine withdrawal Opioid withdrawal Phenobarbital only to manage any alcohol withdrawal symptoms. 65 mg every 6 hrs for today Adjunct thiamine/folic acid Continue Suboxone 8mg BID for today Fluoxetine 20mg daily CIWA/COWS scores per unit protocol. PRN medications for withdrawal symptom management added. Disposition: Detox anticipated pending: Resolution of withdrawal symptoms. Medical stabilization. Labs/tests/tasks to review: reviewed Claim Benefit Specialist recommendations: None. Remaining medical management per primary team. Will follow. DARA Pulido CNP Addiction Medicine 12/03/2024 at 12:34 PM Note: Narrative portions of note written using [employer] dictation software. Efforts are made to dictate clearly and proofread but errors in dictation still may occur. Please reach out to author with any clarifying questions. [1] buprenorphine-naloxone, 1 Film, SubLINGual, BID busPIRone, 15 mg, Oral, q8h FLUoxetine, 20 mg, Oral, Daily folic acid 1 mg in dextrose 5 % 50 mL IVPB, 1 mg, IntraVENous, Daily mupirocin, , Nasal, BID pantoprazole (ProtoNix) 40 mg in sodium chloride (PF) 0.9 % 10 mL injection, 40 mg, IntraVENous, BID AC PHENobarbital, 65 mg, IntraVENous, q6h sodium chloride 0.9%, 10 mL, IntraVENous, 2 times per day thiamine, 100 mg, IntraVENous, TID [2] PRN medications: acetaminophen OR acetaminophen OR acetaminophen, LORazepam OR LORazepam OR [DISCONTINUED] LORazepam OR [DISCONTINUED] LORazepam OR [DISCONTINUED] LORazepam OR [DISCONTINUED] LORazepam OR [DISCONTINUED] LORazepam OR [DISCONTINUED] LORazepam, naloxone, sodium chloride, sodium chloride 0.9% Family Communication Number Called: [phone] Name of Designated Family Spring Tacker: Chhaya Maurer Relationship: mother Phone Call Outcome: I spoke with the individual listed above. Family Spring Tacker Updated on the Following: Clinical update given, questions answered. Addiction Medicine Progress Note Patient: El Simth Chief Complaint Patient presents with Alcohol Intoxication Fall Problem List: Principal Problem: Alcoholic intoxication without complication (CMS/HCC) (HCC) Subjective Interim History: Patient was sitting up in bed. Endorses symptoms of withdrawal including diaphoresis, tremors and anxiety. Overall, withdrawal symptoms are improving. No other physical complaints voiced. Received PRN medicine overnight. Positive signs and/or symptoms of withdrawal observed. No events overnight documented. Long discussion with patient regarding his mental health. Utilized active listening and validation. Verbal encouragement and support provided during discussion today. Reviewed positive attributes and encourage self abilities. Discussed with patient drugs of the SSRI class are generally effective at alleviating symptoms of anxiety and/or depression. He would like to proceed. Objective Review of Systems: All ROS was completed and was negative unless stated above Physical Exam: Vitals: 12/02/24 1000 12/02/24 1100 12/02/24 1134 12/02/24 1200 BP: (!) 135/112 BP Location: Left arm Patient Position: Sitting Pulse: 102 102 104 97 Resp: (!) 11 12 (!) 31 14 Temp: 36.2 C (97.2 F) TempSrc: Temporal SpO2: 97% Weight: Height: Physical Exam Vitals and nursing note reviewed. Constitutional: Appearance: He is diaphoretic. Cardiovascular: Rate and Rhythm: Tachycardia present. Pulmonary: Effort: Pulmonary effort is normal. Musculoskeletal: General: Normal range of motion. Skin: Coloration: Skin is not pale. Neurological: Mental Status: He is alert and oriented to person, place, and time. Motor: Tremor present. Psychiatric: Attention and Perception: He does not perceive auditory or visual hallucinations. Mood and Affect: Affect normal. Mood is anxious. Speech: Speech normal. Behavior: Behavior is cooperative. Thought Content: Thought content normal. Thought content does not include homicidal or suicidal ideation. Judgment: Judgment is impulsive. Medications: Scheduled Meds[1] PRN Meds[2] Labs: Last 24 hours: Recent Results (from the past 24 hours) Phosphorus Collection Time: 12/01/24 4:07 PM Result Value Ref Range PHOSPHORUS 1.9 (L) 2.3 - 4.7 mg/dL Magnesium Collection Time: 12/01/24 4:07 PM Result Value Ref Range MAGNESIUM 2.1 1.6 - 2.6 mg/dL Basic metabolic panel Collection Time: 12/01/24 4:07 PM Result Value Ref Range SODIUM 134 (L) 136 - 145 mmol/L POTASSIUM 3.2 (L) 3.5 - 5.1 mmol/L CHLORIDE 103 98 - 107 mmol/L CARBON DIOXIDE 22 22 - 29 mmol/L UREA NITROGEN 13 8 - 21 mg/dL CREATININE 0.70 (L) 0.72 - 1.25 mg/dL GLUCOSE 120 (H) 74 - 100 mg/dL CALCIUM 8.0 (L) 8.4 - 10.2 mg/dL ANION GAP 9 3 - 13 mmol/L eGFR >90.0 >60.0 mL/min/1.73m*2 CBC auto differential Collection Time: 12/02/24 12:51 AM Result Value Ref Range Auto WBC 7.7 3.6 - 10.7 10*3/uL RBC 4.14 (L) 4.40 - 5.90 10*6/uL Hemoglobin 9.5 (L) 13.0 - 18.0 g/dL Hematocrit 31.1 (L) 40.0 - 52.0 % MCV 75.1 (L) 77.0 - 99.0 fL MCH 22.9 (L) 26.0 - 34.0 pg MCHC 30.5 30.5 - 36.0 % RDW 22.2 (H) 11.5 - 15.0 % Platelets 195 140 - 440 10*3/uL MPV 10.1 9.0 - 12.7 fL nRBC 0.0 0.0 - 2.0 /100 WBCs Neutrophils Relative 66.8 38.0 - 82.0 % Lymphocytes Relative 23.8 15.0 - 45.0 % Monocytes Relative 5.7 5.0 - 13.0 % Eosinophils Relative 1.9 0.0 - 6.0 % Basophils Relative 1.2 0.0 - 2.0 % Immature Grans % 0.6 0.0 - 2.0 % Neutrophils Absolute 5.2 1.8 - 7.5 10*3/uL Lymphocytes Absolute 1.8 1.0 - 4.3 10*3/uL Monocytes Absolute 0.4 0.0 - 0.9 10*3/uL Eosinophils Absolute 0.2 0.0 - 0.5 10*3/uL Basophils Absolute 0.1 0.0 - 0.2 10*3/uL Immature Grans Absolute 0.1 (H) <0.1 10*3/uL Comprehensive metabolic panel Collection Time: 12/02/24 12:51 AM Result Value Ref Range SODIUM 130 (L) 136 - 145 mmol/L POTASSIUM 2.7 (L) 3.5 - 5.1 mmol/L CHLORIDE 99 98 - 107 mmol/L CARBON DIOXIDE 23 22 - 29 mmol/L ANION GAP 8 3 - 13 mmol/L UREA NITROGEN 15 8 - 21 mg/dL CREATININE 0.70 (L) 0.72 - 1.25 mg/dL GLUCOSE 121 (H) 74 - 100 mg/dL CALCIUM 7.8 (L) 8.4 - 10.2 mg/dL AST (SGOT) 26 <34 U/L ALT 9 <40 U/L ALKALINE PHOSPHATASE 94 40 - 150 U/L ALBUMIN 2.6 (L) 3.5 - 5.0 g/dL BILIRUBIN, TOTAL 0.4 <1.2 mg/dL TOTAL PROTEIN 5.7 (L) 6.4 - 8.3 g/dL eGFR >90.0 >60.0 mL/min/1.73m*2 Magnesium Collection Time: 12/02/24 12:51 AM Result Value Ref Range MAGNESIUM 1.7 1.6 - 2.6 mg/dL Phosphorus Collection Time: 12/02/24 12:51 AM Result Value Ref Range PHOSPHORUS 3.3 2.3 - 4.7 mg/dL Comprehensive metabolic panel Collection Time: 12/02/24 11:35 AM Result Value Ref Range SODIUM 133 (L) 136 - 145 mmol/L POTASSIUM 3.7 3.5 - 5.1 mmol/L CHLORIDE 97 (L) 98 - 107 mmol/L CARBON DIOXIDE 25 22 - 29 mmol/L ANION GAP 11 3 - 13 mmol/L UREA NITROGEN 15 8 - 21 mg/dL CREATININE 0.71 (L) 0.72 - 1.25 mg/dL GLUCOSE 101 (H) 74 - 100 mg/dL CALCIUM 8.1 (L) 8.4 - 10.2 mg/dL AST (SGOT) 30 <34 U/L ALT 15 <40 U/L ALKALINE PHOSPHATASE 100 40 - 150 U/L ALBUMIN 2.8 (L) 3.5 - 5.0 g/dL BILIRUBIN, TOTAL 0.4 <1.2 mg/dL TOTAL PROTEIN 6.1 (L) 6.4 - 8.3 g/dL eGFR >90.0 >60.0 mL/min/1.73m*2 Osmolality Collection Time: 12/02/24 11:35 AM Result Value Ref Range OSMOLALITY, SERUM 279 (L) 280 - 300 mOsm/kg TSH Collection Time: 12/02/24 11:35 AM Result Value Ref Range THYROID STIMULATING HORMONE 3.07 0.35 - 4.94 uIU/mL Cortisol Collection Time: 12/02/24 11:35 AM Result Value Ref Range CORTISOL 4.4 3.7 - 19.4 ug/dL Assessment & Plan Opioid use disorder in remission Alcohol use disorder Benzodiazepine dependences Counseled patient on biopsychosocial consequences of substance use. Encouraged professional chemical dependency treatment. Encouraged 12 step meeting attendance. Addiction treatment plan with patient: Patient likely to continue with Dr. Choudhary IOP and MAT Alcohol withdrawal Benzodiazepine withdrawal Opioid withdrawal Phenobarbital only to manage any alcohol withdrawal symptoms. 65 mg every 4 hrs for today Adjunct thiamine/folic acid Continue Suboxone 8mg BID for today Start Fluoxetine 20mg daily CIWA/COWS scores per unit protocol. PRN medications for withdrawal symptom management added. Disposition: Detox anticipated 4-5 days pending: Resolution of withdrawal symptoms. Medical stabilization. Labs/tests/tasks to review: reviewed Claim Benefit Specialist recommendations: None. Remaining medical management per primary team. Will follow. Malcolm Mejia APRN - SWITCHBOARD CLERK Addiction Medicine 12/02/2024 at 1:18 PM Note: Narrative portions of note written using [employer] dictation software. Efforts are made to dictate clearly and proofread but errors in dictation still may occur. Please reach out to author with any clarifying questions. [1] buprenorphine-naloxone, 1 Film, SubLINGual, BID busPIRone, 15 mg, Oral, q8h FLUoxetine, 20 mg, Oral, Daily folic acid 1 mg in dextrose 5 % 50 mL IVPB, 1 mg, IntraVENous, Daily mupirocin, , Nasal, BID pantoprazole (ProtoNix) 40 mg in sodium chloride (PF) 0.9 % 10 mL injection, 40 mg, IntraVENous, BID AC PHENobarbital, 65 mg, IntraVENous, Q4H potassium chloride, 40 mEq, Oral, BID thiamine, 100 mg, IntraVENous, TID [2] PRN medications: acetaminophen OR acetaminophen OR acetaminophen, LORazepam OR LORazepam OR LORazepam OR LORazepam OR LORazepam OR LORazepam OR LORazepam OR LORazepam, naloxone ICU Progress Note El Smith : 1980(44 y.o.) Date: December 02, 2024 Team: ICU Attending: Dr. Austin Montalvo Subjective: Hospital Summary: This is a 44 y.o M with a PMH of HTN, HLD, CAD s/p stent to RCA 2021, Anxiety, Depression, Chronic pain, Tobacco abuse, Opioid use d/o on Suboxone and Alcohol abuse (15-20 shots of alcohol/day) who presents to [facility] ED on 11/29 after a fall and binge of drinking for 10 days. Patient developed alcohol withdrawal symptoms in ED requiring Haldol, Valium and Ativan. Also reported to have some bloody stools, CTA negative. Patient admitted to [facility] ICU. Started on PNB, CIWA ativan, Folate and thiamine. ADM c/s restarted Suboxone. GI c/s planning on EGD Tuesday. Transferred out of ICU on 12/01. Interval Events: Remains in ICU d/t lack of floor bed availability. No acute issues overnight. Required 3 mg Ativan total overnight. States he continues to feel better. Frustrated with being in hospital but appreciative of care. Complains of chronic low back pain. Denies f/c, nuñez, cp, sob, abd pain, n/v/c/d, hematemesis, melena. Assessment and Plan: Assessment Alcohol abuse with withdrawal HAGMA--resolved Lactic acidosis--Resolved Hyponatremia Hypokalemia Possible bloody stools CAD/HTN/HLD Anxiety/Depression/PTSD Chronic Pain Opiate abuse Tobacco abuse Falls Plan On PNB 97.5 Q4 hours, hold for sedation. Continue CIWA Ativan. Only 3mg overnight. Folate, thiamine ADM following for complex polysubstance abuse hx, Suboxone restarted Sodium trending down. Check Serum and urine osmo, tsh, cortisol, urine sodium Replete lytes, follow up BMP/Mg/Phos after replacement GI c/s, no further bleeding noted. Planning on EGD Tuesday, +/- C-scope Does not appear patient is on DAPT per home med list. Will hold for now with report of bloody stools. Per notes was a DORIS in 2021. If EGD negative will need ASA at [facility]. On home Buspar Patient declined nicotine patch, cessation counseling given PT/OT Remained green slipped at this time. Disposition: ok for telemetry GI Prophylaxis: Pantoprazole IV DVT Prophylaxis: SCDs Plan of care discussed with Dr. Montalvo Objective: VITALS: BP 136/100 Pulse 89 Temp 36 C (96.8 F) (Temporal) Resp 14 Ht 1.778 m (5' 10) Wt 74.8 kg (165 lb) SpO2 97% BMI 23.68 kg/m CURRENT PULSE OXIMETRY: SpO2: 97 % Scheduled Meds:Scheduled Meds[1] Continuous Infusions:Continuous Meds[2] I/O: 12/01 0700 - 12/02 0659 In: - Out: 475 [Urine:475] Ventilator Settings: Oxygen Delivery - Invasive Lines and Dates: None Intubation Date: N/A Invasive Lines / Tubes / Drains: Peripheral IV 11/29/24 Right Antecubital (Active) Number of days: 1 Peripheral IV 11/30/24 Anterior;Left;Proximal Forearm (Active) Number of days: 1 Central Line Indication: NA - patient does not have a central line Conrad Indications: NA - patient does not have a Conrad catheter Restraints: NA - patient is not restrained. Wounds: Physical Exam Vitals and nursing note reviewed. Constitutional: General: He is awake. He is not in acute distress. Appearance: He is well-developed and normal weight. He is ill-appearing. He is not toxic-appearing or diaphoretic. HENT: Head: Normocephalic and atraumatic. Mouth/Throat: Mouth: Mucous membranes are moist. Pharynx: Oropharynx is clear. Comments: Edentoulous Eyes: Conjunctiva/sclera: Conjunctivae normal. Pupils: Pupils are equal, round, and reactive to light. Neck: Vascular: No JVD. Trachea: No tracheal deviation. Cardiovascular: Rate and Rhythm: Normal rate and regular rhythm. Pulses: Normal pulses. Heart sounds: Normal heart sounds. Pulmonary: Effort: Pulmonary effort is normal. Breath sounds: Normal breath sounds. Abdominal: General: Bowel sounds are normal. There is no distension. Palpations: Abdomen is soft. Tenderness: There is no abdominal tenderness. Hernia: No hernia is present. Musculoskeletal: Right lower leg: No edema. Left lower leg: No edema. Skin: General: Skin is warm and dry. Capillary Refill: Capillary refill takes less than 2 seconds. Coloration: Skin is not cyanotic. Nails: There is no clubbing. Neurological: General: No focal deficit present. Mental Status: He is alert. He is confused. GCS: GCS eye subscore is 4. GCS verbal subscore is 4. GCS motor subscore is 6. Sensory: Sensation is intact. Motor: Motor function is intact. Comments: Unsure of exact date Psychiatric: Attention and Perception: He does not perceive auditory or visual hallucinations. Mood and Affect: Mood is anxious. Speech: Speech normal. Behavior: Behavior is not agitated. Behavior is cooperative. Select Labs within last 24 hours- BMP: Recent Labs 12/01/24 0712/01/2482312/01/24160612/02/24 0051 NA -- 132* 134* 130* K -- 2.7* 3.2* 2.7* CL -- 99 103 99 CO2 -- 25 22 23 BUN -- 11 13 15 CREATININE -- 0.66* 0.70* 0.70* CALCIUM -- 8.0* 8.0* 7.8* MG 1.5* -- 2.1 1.7 PHOS 3.2 -- 1.9* 3.3 LFTs: Recent Labs 11/30/24 0711/30/24200312/01/2482312/02/24 0051 AST -- 61* 38* 26 ALT -- 14 14 9 PROT -- 6.3* 6.5 5.7* ALBUMIN -- 2.8* 2.9* 2.6* BILITOT -- 1.0 0.9 0.4 ALKPHOS -- 106 114 94 LIPASE 38 -- -- -- Glucose: Recent Labs 11/29/24 1829 11/29/24 1850 11/30/24 0711/30/24200312/01/24 0812/01/24 16012/02/24 0051 GLUCOSE 122* -- 103* 92 93 120* 121* POCGLU -- 125* -- -- -- -- -- Procal: No results for input(s): PROCAL in the last 72 hours. CBC: Recent Labs 11/30/24 2042 12/01/24 0824 12/02/24 0051 WBC 9.0 10.2 7.7 HGB 10.6* 10.8* 9.5* HCT 34.1* 34.5* 31.1* PLT 214 235 195 MCV 73.7* 73.6* 75.1* RDW 23.0* 22.6* 22.2* ABGs: Recent Labs 11/29/24 1829 [id number] None (Room Air) Lactic Acid: Recent Labs 11/30/24 0228 11/30/24 0904 11/30/24 1538 LACTATE 3.5* 2.9* 1.4 INR: Recent Labs 11/29/24 1829 INR 1.2* Cardiac Injury Profile: No results for input(s): CKTOTAL, CKMB, TROPONINI in the last 72 hours. Labs in Last 3 months: Lab Results Component Value Date TSH 0.47 05/27/2024 INR 1.2 (H) 11/29/2024 Microbiology- Urine Cx: No results found for: URINECX Blood Cx: Lab Results Component Value Date BLOODCX No growth at 48 hours 11/29/2024 Imaging- 11/29 CXR IMPRESSION: No radiographic acute cardiopulmonary process 11/29 CT Head IMPRESSION: No acute intracranial hemorrhage or mass effect. 11/29 CT Orbits IMPRESSION: No acute abnormality of the orbits. 11/30 CT A/P IMPRESSION: Impression: The etiology of symptoms not certain. Findings suspicious for inflammatory or infiltrative changes of the stomach, duodenum and hepatic flexure of the colon. Distended bowel scattered fluid levels etiology is not certain but may reflect an element of ileus. Follow-up or further evaluation recommended. Consider follow-up GI bleed scan for persistent symptoms of active bleeding. [1] buprenorphine-naloxone, 1 Film, SubLINGual, BID busPIRone, 15 mg, Oral, q8h folic acid 1 mg in dextrose 5 % 50 mL IVPB, 1 mg, IntraVENous, Daily mupirocin, , Nasal, BID pantoprazole (ProtoNix) 40 mg in sodium chloride (PF) 0.9 % 10 mL injection, 40 mg, IntraVENous, BID AC PHENobarbital, 97.5 mg, IntraVENous, Q4H potassium chloride, 40 mEq, Oral, BID thiamine, 100 mg, IntraVENous, TID [2] Family Communication Number Called: [phone] Name of Designated Family Spring Tacker: Chhaya Maurer Relationship: mother Phone Call Outcome: I spoke with the individual listed above. Family Spring Tacker Updated on the Following: Updated on clinical condition, treating for alcohol withdrawal. Plan for ADM and GI c/s. Poss transfer to [facility] later today ICU Progress Note El Smith : 1980(44 y.o.) Date: December 01, 2024 Team: ICU Attending: Dr. Austin Montalvo Subjective: Hospital Summary: This is a 44 y.o M with a PMH of HTN, HLD, CAD s/p stent to RCA 2021, Anxiety, Depression, Chronic pain, Tobacco abuse, Opioid use d/o on Suboxone and Alcohol abuse (15-20 shots of alcohol/day) who presents to [facility] ED on 11/29 after a fall and binge of drinking for 10 days. Patient developed alcohol withdrawal symptoms in ED requiring Haldol, Valium and Ativan. Also reported to have some bloody stools, CTA negative. Patient admitted to [facility] ICU. Interval Events: No acute issues overnight. Required 3 mg Ativan total. States he feels better than when he came to the hospital. States he wants his dog and cough. Denies f/c, nuñez, cp, sob, abd pain, n/v/c/d, hematemesis, melena. Assessment and Plan: Assessment Alcohol abuse with withdrawal HAGMA--resolved Lactic acidosis--Resolved Hypokalemia Hypomagnesemia Possible bloody stools CAD/HTN/HLD Anxiety/Depression/PTSD Chronic Pain Opiate abuse Tobacco abuse Falls Plan PNB load yesterday, continue PNB today 65 mg Q 6 hour, hold for sedation. Continue CIWA Ativan. Only 3mg overnight. Folate, thiamine ADM following for complex polysubstance abuse hx Replete lytes, follow up BMP/Mg/Phos after replacement GI c/s, no further bleeding noted. Planning on EGD Tuesday, +/- C-scope Does not appear patient is on DAPT per home med list. Will hold for now with report of bloody stools. Per notes was a DORIS in 2021. If EGD negative will need ASA at [facility]. Restart home Buspar Patient declined nicotine patch, cessation counseling given PT/OT Remained green slipped at this time. Disposition: ok for telemetry GI Prophylaxis: Pantoprazole IV DVT Prophylaxis: SCDs Plan of care discussed with Dr. Montalvo Objective: VITALS: BP (!) 144/112 Pulse 109 Temp 37.8 C (100 F) (Temporal) Resp 22 Ht 1.778 m (5' 10) Wt 74.8 kg (165 lb) SpO2 94% BMI 23.68 kg/m CURRENT PULSE OXIMETRY: SpO2: 94 % Scheduled Meds:Scheduled Meds[1] Continuous Infusions:Continuous Meds[2] I/O: 11/30 0700 - 12/01 0659 In: 743 [P.O.:18; I.V.:725] Out: - Ventilator Settings: Oxygen Delivery - Invasive Lines and Dates: None Intubation Date: N/A Invasive Lines / Tubes / Drains: Peripheral IV 11/29/24 Right Antecubital (Active) Number of days: 1 Peripheral IV 11/30/24 Anterior;Left;Proximal Forearm (Active) Number of days: 1 Central Line Indication: NA - patient does not have a central line Conrad Indications: NA - patient does not have a Conrad catheter Restraints: NA - patient is not restrained. Wounds: Physical Exam Vitals and nursing note reviewed. Constitutional: General: He is awake. He is not in acute distress. Appearance: He is well-developed and normal weight. He is ill-appearing. He is not toxic-appearing or diaphoretic. HENT: Head: Normocephalic and atraumatic. Mouth/Throat: Mouth: Mucous membranes are moist. Pharynx: Oropharynx is clear. Comments: Edentoulous Eyes: Conjunctiva/sclera: Conjunctivae normal. Pupils: Pupils are equal, round, and reactive to light. Neck: Vascular: No JVD. Trachea: No tracheal deviation. Cardiovascular: Rate and Rhythm: Regular rhythm. Tachycardia present. Pulses: Normal pulses. Heart sounds: Normal heart sounds. Pulmonary: Effort: Pulmonary effort is normal. Breath sounds: Normal breath sounds. Abdominal: General: Bowel sounds are normal. There is no distension. Palpations: Abdomen is soft. Tenderness: There is no abdominal tenderness. Hernia: No hernia is present. Musculoskeletal: Right lower leg: No edema. Left lower leg: No edema. Skin: General: Skin is warm and dry. Capillary Refill: Capillary refill takes less than 2 seconds. Coloration: Skin is not cyanotic. Nails: There is no clubbing. Neurological: General: No focal deficit present. Mental Status: He is alert and easily aroused. He is confused. GCS: GCS eye subscore is 4. GCS verbal subscore is 4. GCS motor subscore is 6. Sensory: Sensation is intact. Motor: Motor function is intact. Comments: Unsure of exact date Psychiatric: Attention and Perception: He does not perceive auditory or visual hallucinations. Speech: Speech normal. Behavior: Behavior is not agitated. Behavior is cooperative. Select Labs within last 24 hours- BMP: Recent Labs 11/29/24182811/30/2471811/30/24200312/01/24 0700 NA 145 134* 131* -- K 2.6* 2.7* 4.4 -- CL 100 96* 98 -- CO2 26 26 22 -- BUN 19 18 13 -- CREATININE 0.76 0.70* 0.66* -- CALCIUM 8.0* 7.2* 7.5* -- MG -- -- -- 1.5* PHOS -- -- -- 3.2 LFTs: Recent Labs 11/29/24182811/30/2471811/30/242003 AST 55* -- 61* ALT 19 -- 14 PROT 6.9 -- 6.3* ALBUMIN 3.2* -- 2.8* BILITOT 0.4 -- 1.0 ALKPHOS 124 -- 106 LIPASE -- 38 -- Glucose: Recent Labs 11/29/24 1829 11/29/24 1850 11/30/24 0719 11/30/24 2004 GLUCOSE 122* -- 103* 92 POCGLU -- 125* -- -- Procal: No results for input(s): PROCAL in the last 72 hours. CBC: Recent Labs 11/29/24 1829 11/30/24 1707 11/30/24 2042 WBC 8.7 -- 9.0 HGB 12.6* 10.1* 10.6* HCT 40.1 31.9* 34.1* PLT 321 -- 214 MCV 71.9* -- 73.7* RDW 23.2* -- 23.0* ABGs: Recent Labs 11/29/241828 [id number] None (Room Air) Lactic Acid: Recent Labs 11/30/24 0228 11/30/24 0904 11/30/24 1538 LACTATE 3.5* 2.9* 1.4 INR: Recent Labs 11/29/241828 INR 1.2* Cardiac Injury Profile: No results for input(s): CKTOTAL, CKMB, TROPONINI in the last 72 hours. Labs in Last 3 months: Lab Results Component Value Date TSH 0.47 05/27/2024 INR 1.2 (H) 11/29/2024 Microbiology- Urine Cx: No results found for: URINECX Blood Cx: Lab Results Component Value Date BLOODCX No growth at 24 hours 11/29/2024 Imaging- 11/29 CXR IMPRESSION: No radiographic acute cardiopulmonary process 11/29 CT Head IMPRESSION: No acute intracranial hemorrhage or mass effect. 11/29 CT Orbits IMPRESSION: No acute abnormality of the orbits. 11/30 CT A/P IMPRESSION: Impression: The etiology of symptoms not certain. Findings suspicious for inflammatory or infiltrative changes of the stomach, duodenum and hepatic flexure of the colon. Distended bowel scattered fluid levels etiology is not certain but may reflect an element of ileus. Follow-up or further evaluation recommended. Consider follow-up GI bleed scan for persistent symptoms of active bleeding. [1] folic acid 1 mg in dextrose 5 % 50 mL IVPB, 1 mg, IntraVENous, Daily mupirocin, , Nasal, BID pantoprazole (ProtoNix) 40 mg in sodium chloride (PF) 0.9 % 10 mL injection, 40 mg, IntraVENous, BID AC [Held by provider] PHENobarbital, 65 mg, IntraVENous, q6h thiamine, 100 mg, IntraVENous, Daily [2] documented in this encounter [facility] [place] 12-03-2024 Telephone encounter Note Scheduled patient for OV 9/9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 Anthropometric Measures: Height: 177.8 cm (5' 10) Current Body Weight: 74.8 kg (165 lb) (estimated 11/29) Weight Source: (estimated) Admission Body Weight: 74.8 kg (165 lb) (estimated 11/29) Usual Body Weight: 74.8 kg (165 lb) % Weight Change (Calculated): 0 [place] Body Weight (lbs) (Calculated): 166 lbs [place] Body Weight (Kg) (Calculated): 75 kg % [place] Body Weight (Calculated): 99.4 % BMI (kg/m2) (Calculated): 23.7 Weight Adjustment For: No Adjustment BMI Categories: Normal Weight (BMI 18.5-24.9) Wt Readings from Last 10 Encounters: 11/29/24 74.8 kg (165 lb) 08/10/24 74.8 kg (165 lb) 05/27/24 74.8 kg (165 lb) 05/17/24 74.8 kg (165 lb) 04/05/24 74.8 kg (165 lb) 03/13/24 75.1 kg (165 lb 9.1 oz) 03/08/24 72.6 kg (160 lb) 03/06/24 72.6 kg (160 lb) 03/02/24 71.5 kg (157 lb 10.1 oz) 02/14/24 71.5 kg (157 lb 10.1 oz) Nutrition Diagnosis: Inadequate oral intake related to altered GI function as evidenced by NPO or clear liquid status due to medical condition (concern for GIB- black/watery stools) (Excessive Alcohol Intake) related to (alcohol abuse history) as evidenced by (per pt 10-day drinking binge consisting of mostly 100 proof alcohol, pt last drink was 11/29/24) Nutrition Interventions: Nutrition Education/Counseling: No recommendation at this time Coordination of Nutrition Care: Continue to monitor while inpatient Plan of Care discussed with: RN Goals: Goals: Initiate PO diet, within 2 days Nutrition Monitoring and Evaluation: Behavioral-Environmental Outcomes: None Identified Food/Nutrient Intake Outcomes: Diet Advancement/Tolerance Physical Signs/Symptoms Outcomes: Biochemical Data, GI Status, Fluid Status or Edema, Hemodynamic Status, Weight, Skin, Nutrition Focused Physical Findings Discharge Planning: Too soon to determine Veronica Garcia RD Contact: available via [employer] or *[phone] [1] folic acid 1 mg in dextrose 5 % 50 mL IVPB, 1 mg, IntraVENous, Daily mupirocin, , Nasal, BID pantoprazole (ProtoNix) 40 mg in sodium chloride (PF) 0.9 % 10 mL injection, 40 mg, IntraVENous, BID AC [Held by provider] PHENobarbital, 65 mg, IntraVENous, q6h thiamine, 100 mg, IntraVENous, Daily [2] T [facility] [place] 11-30-2024 History and physical note Images from the original note were not included. Internal Medicine: MICU Initial History and Physical Name: El Smith : 1980(44 y.o.) Date: 11/30/24 Attending: Dr. Montalvo Subjective: Chief Complaint: acute alcohol intoxication HPI: Patient is a 44-year-old male with a past medical history significant for alcohol-use disorder and opioid-use disorder who presented to [place] ED on 11/29/2024 via EMS after a mechanical fall secondary to alcohol intoxication. Patient transferred to [facility] ICU for alcohol withdrawal management. In the ED, vitals are notable for a HR of 131, RR of 30, and BP of 145/78. He was saturating 95% on room air. Labs notable for a potassium of 2.6, lactic acid of 4.4, and a hemoglobin of 12.6 with an MCV of 12.6. CXR with no acute cardiopulmonary process. CT head with no acute intracranial process. The patient was given Haldol in the ED. He was also given oral Valium and IV Ativan. On evaluation, the patient is alert and oriented x 3. He is lethargic but arousable. He reports a 10-day drinking binge consisting of mostly 100 proof alcohol. His last drink was 11/29/2024. He notes he does follow with an addiction medicine physician outside of the hospital. Medical History[1] Surgical History[2] Family History[3] Social History Socioeconomic History Marital status: Single Spouse name: Not on file Number of children: Not on file Years of education: Not on file Highest education level: Not on file Occupational History Not on file Tobacco Use Smoking status: Every Day Current packs/day: 0.50 Average packs/day: 0.5 packs/day for 1 year (0.5 ttl pk-yrs) Types: Cigarettes Start date: 12/2023 Smokeless tobacco: Never Vaping Use Vaping status: Every Day Substances: THC Substance and Sexual Activity Alcohol use: Yes Comment: 10-15 shots of whiskey Drug use: Yes Types: Marijuana Comment: 08/10/24 denies other drug use; vapes marijuana uses methadone, also buys pain meds on the streets Sexual activity: Not on file Other Topics Concern Not on file Social History Narrative Not on file Social Drivers of Health Financial Resource Strain: Low Risk (02/17/2024) Overall Financial Resource Strain (CARDIA) Difficulty of Paying Living Expenses: Not very hard Food Insecurity: No Food Insecurity (02/17/2024) Hunger Vital Sign Worried About Running Out of Food in the Last Year: Never true Ran Out of Food in the Last Year: Never true Transportation Needs: Unmet Transportation Needs (04/21/2023) PRAPARE - Transportation Lack of Transportation (Medical): Yes Lack of Transportation (Non-Medical): Yes Physical Activity: Not on file Stress: Not on file Social Connections: Socially Isolated (02/17/2024) Social Connection and Isolation Panel [NHANES] Frequency of Communication with Friends and Family: More than three times a week Frequency of Social Gatherings with Friends and Family: More than three times a week Attends Confucianist Services: Never Active Member of Clubs or Organizations: No Attends Club or Organization Meetings: Never Marital Status: Never Intimate Partner Violence: Not At Risk (02/14/2024) Humiliation, Afraid, Rape, and Kick questionnaire Fear of Current or Ex-Partner: No Emotionally Abused: No Physically Abused: No Sexually Abused: No Housing Stability: Low Risk (02/17/2024) Housing Stability Vital Sign Unable to Pay for Housing in the Last Year: No Number of Times Moved in the Last Year: 0 Homeless in the Last Year: No Allergies[4] Prior to Admission medications Medication Sig Start Date End Date Taking? Authorizing Provider acamprosate (Campral) 333 MG EC tablet Take 2 tablets (666 mg) by mouth 3 times daily. Do not crush, chew, or split. 06/20/24 06/20/25 Catalino Choudhary MD acetaminophen (Tylenol Extra Strength) 500 MG tablet Take 2 tablets (1,000 mg) by mouth every 8 hours as needed for mild pain (1-3), moderate pain (4-6) or headaches. 07/04/24 07/04/25 Catalino Choudhary MD busPIRone (Buspar) 15 MG tablet Take 1 tablet (15 mg) by mouth every 8 hours. 05/30/24 05/30/25 Catalino Choudhary MD clonazePAM (KlonoPIN) 0.25 MG disintegrating tablet Take 1 tablet (0.25 mg) by mouth 3 times daily as needed for anxiety for up to 28 days. 09/19/24 10/17/24 Catalino Choudhary MD Docusate Sodium (DSS) 100 MG capsule Take 1 capsule (100 mg) by mouth 2 times daily. 05/30/24 05/30/25 Catalino Choudhary MD naloxone (Narcan) 4 mg/0.1 mL nasal spray Administer 1 spray (4 mg) into affected nostril(s) as needed for opioid reversal. May repeat every 2-3 minutes if needed, alternating nostrils, until medical assistance becomes available. 03/20/24 03/20/25 Catalino Choudhary MD omeprazole (PriLOSEC) [address] capsule Take 1 capsule (40 mg) by mouth every morning (before breakfast). Do not crush or chew. 08/30/24 08/30/25 Catalino Choudhary MD prazosin (Minipress) 5 MG capsule Take 2 capsules (10 mg) by mouth Nightly. 08/30/24 08/30/25 Catalino Choudhary MD QUEtiapine (SEROquel) 50 MG tablet Take 3 tablets (150 mg) by mouth Nightly. 08/30/24 08/30/25 Catalino Choudhary MD sertraline (Zoloft) 50 MG tablet Take 3 tablets (150 mg) by mouth daily. 07/30/24 Catalino Choudhary MD Objective: Oxygen Delivery: VITALS: BP (!) 155/112 Pulse (!) 121 Temp 37.8 C (100 F) (Oral) Comment: MD aware Resp (!) 27 Wt 165 lb (74.8 kg) SpO2 94% BMI 23.68 kg/m CURRENT PULSE OXIMETRY: SpO2: 94 % Review of Systems Constitutional: Positive for diaphoresis. Gastrointestinal: Positive for abdominal pain and diarrhea. Constitutional: General Appearance []WDWN []Obese []Cachectic []Thin [x]Ill Eyes: Inspection of Pupils/Irises Pupils round and react: [x]Yes []No Sclera: []Icteric [x]Non-Icteric Inspection of Conjunctiva/Lids Conjunctiva: []Injected [x]Non-Injected Lids: [x]Intact []Lesion Present ENT/Mouth: External Inspection of ears/nose [x] Normal [] Scar/Lesion/Mass Inspection of teeth/lips/gums Dentition: [][place] Teeth []Dentures Lips/Gums: []Intact []Lesion Present Mucosa: [][place] []Moist []Dry Neck: External Appearance Overall Appearance: [x]Normal []Lesion/Mass/Crepitus Present Trachea midline: []Yes []No Thyroid []Normal []Enlarged []Tender []Mass []Absent Respiratory: Respiratory effort []Labored [x]Non-Labored [] Mechanically-Ventilated Auscultation [x]Clear []Crackles []Wheezes []Rhonchi Cardiovascular: Auscultation Rate: []Regular []Irregular [x]Tachycardia []Bradycardia Rhythm: [x]Regular []Irregular Murmur: []Present []Absent Extremities Peripheral Edema: []Present []Absent Varicosities: []Present []Absent Gastrointestinal: Abdomen Palpation: [x]Soft []Firm [x]Tender []Non-Tender []Distended [x]Non-distended Mass: []Present []Absent Bowel Sounds: []Present []Absent Hernia: []Present []Absent Liver/Spleen: []Hepatosplenomegaly []Organomegaly Absent Musculoskeletal: Inspection of Digits and Nails Cyanosis: []Present [x]Absent Clubbing: []Present [x]Absent Ischemia: []Present [x]Absent Infection: []Present [x]Absent Extremities CADENA Equally: Except ([]RUE []RLE []LUE []LLE) Strength/Tone: Intact and Normal ([]RUE []RLE []LUE []LLE) Skin: Inspection [x]Normal []Rash []Lesion []Ulcer Palpation [x]Warm []Cool [x]Dry []Clammy []Nodules []Induration []Skin-tightening Cap-Refill: [] <3 sec [] >3 seconds (delayed) Neurologic: GCS EYE: 4 - Opens spontaneously GCS MOTOR: 6 - Obeys commands for movement GCS VERBAL: 5 - Oriented to person, place, time Total GCS: 15 [] Sensation grossly intact Psych: Mental Status Alert: [x]Yes [] No Oriented: []x0 []X1 []X2 [x]x3 Mood/Affect []Normal []Flat []Agitated []Depressed []Anxious []Calm []Sedated []NAD [facility] within last 24 hours- BMP: Recent Labs 11/29/24182811/30/24 0719 NA 145 134* K 2.6* 2.7* CL 100 96* CO2 26 26 BUN 19 18 CREATININE 0.76 0.70* CALCIUM 8.0* 7.2* LFTs: Recent Labs 11/29/24182811/30/24 0719 AST 55* -- ALT 19 -- PROT 6.9 -- ALBUMIN 3.2* -- BILITOT 0.4 -- ALKPHOS 124 -- LIPASE -- 38 Glucose: Recent Labs 11/29/24182811/29/24184911/30/24 0719 GLUCOSE 122* -- 103* POCGLU -- 125* -- Procal: No results for input(s): PROCAL in the last 72 hours. CBC: Recent Labs 11/29/241828 WBC 8.7 HGB 12.6* HCT 40.1 PLT 321 MCV 71.9* RDW 23.2* ABGs: Recent Labs 11/29/241828 [id number] None (Room Air) Lactic Acid: Recent Labs 11/29/24185211/30/24 0228 11/30/24 0904 LACTATE 4.4* 3.5* 2.9* INR: Recent Labs 11/29/24 1829 INR 1.2* Cardiac Injury Profile: No results for input(s): CKTOTAL, CKMB, TROPONINI in the last 72 hours. Labs in Last 3 months: Lab Results Component Value Date TSH 0.47 05/27/2024 INR 1.2 (H) 11/29/2024 Microbiology- Urine Cx: No results found for: URINECX Blood Cx: Lab Results Component Value Date BLOODCX Blood culture incubation started 11/29/2024 Sputum Cx: Lab Results Component Value Date RESPCULT Few respiratory mack present. 04/20/2023 Gram Stain: Lab Results Component Value Date LABGRAM Moderate Epithelial cells per low power field (A) 04/20/2023 LABGRAM (A) 04/20/2023 Few Polymorphonuclear leukocytes per low power field LABGRAM Few Gram positive cocci (A) 04/20/2023 LABGRAM Rare Gram positive bacilli (A) 04/20/2023 PNA PCR: Lab Results Component Value Date HUMANMETAPNE Not Detected 04/20/2023 COVID19: No results found for: COVID19 Legionella Ag: Lab Results Component Value Date LEGIONELLAPN Not Detected 04/20/2023 Strep Ag: No results for input(s): STREPPNEUMO in the last 72 hours. Imaging- CT orbits/sella wo IV contrast Result Date: 11/29/2024 Impression: No acute abnormality of the orbits. Report Dictated on Electronically Signed By: Renato Rascon MD Electronically Signed Date/Time: 11/29/2024 6:[address] head wo IV contrast Result Date: 11/29/2024 Impression: No acute intracranial hemorrhage or mass effect. Report Dictated on Electronically Signed By: Renato Rascon MD Electronically Signed Date/Time: 11/29/2024 6:49 PM EDT XR chest 1 view Result Date: 11/29/2024 Impression: No radiographic acute cardiopulmonary process. Report Dictated on Electronically Signed By: Chela Cleaning MD Electronically Signed Date/Time: 11/29/2024 6:30 PM EDT ECG 12 lead Result Date: 11/29/2024 Impression: Sinus tachycardia Probable left atrial enlargement Nonspecific repol abnormality, lateral leads Compared to ECG 05/27/2024 09:03:06 Early repolarization now present Left ventricular hypertrophy no longer present Myocardial infarct finding no longer present Assessment and Plan: Principal Problem: Alcoholic intoxication without complication (CMS/HCC) ([facility]) Assessment: Alcohol withdrawal HAGMA Lactic acidosis Hypokalemia Elevated AST Microcytic anemia Plan: Admit to ICU Patient GREEN SLIPPED for lack of decision-making capacity Gave phenobarbital 374.4 mg for one-dose [5 mg/kg] Phenobarbital 65 mg every 6-hours, HOLD for RASS < -1 CIWA protocol Thiamine and folic acid supplementation Replete electrolytes as needed ADM consulted, recommendations appreciated Diet: NPO with enteral medications GI Prophylaxis: Pantoprazole IV DVT Prophylaxis: SCDs BMI Classification: Body mass index is 23.68 kg/m . 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 Drug abuse ([facility]) Gastroenteritis 11/23/2018 Last Assessment & Plan: Predominantly vomiting; ?food poisoning vs viral gastroenteritis IV hydration PRN antiemetics Hyperlipidemia Hypertension Iritis of left eye 09/20/2018 [facility] (myocardial infarction) ([facility]) Opioid dependence, uncomplicated ([facility]) 10/27/2021 Presence of stent in right coronary artery 10/02/2021 Sciatica Spinal stenosis, lumbar Tobacco abuse [2] Past Surgical History: Procedure Laterality Date ARM SURGERY (HISTORICAL) metal rods in adam upper extremities BACK SURGERY COLONOSCOPY CORONARY ANGIOPLASTY WITH STENT PLACEMENT 09/23/2021 DORIS to proximal RCA FRACTURE SURGERY [3] Family History Problem Relation Name Age of Onset Atrial fibrillation Sister Hyperlipidemia Mother Obesity Mother Asthma Mother Depression Mother Obesity Sister Depression Sister Arthritis Mother High Blood Pressure Maternal Grandmother Diabetes Mother Asthma Maternal Grandmother Substance Abuse Sister Diabetes Father Stroke Paternal Grandfather Arthritis Sister High Blood Pressure Mother Vision loss Maternal Grandmother Diabetes Maternal Grandmother Stroke Maternal Grandmother Arthritis Maternal Grandfather Arthritis Maternal Grandmother Cancer Maternal Grandfather Depression Maternal Grandmother Cancer Brother Diabetes Paternal Grandfather Stroke Paternal Grandmother Diabetes Maternal Grandfather Obesity Maternal Grandmother Depression Maternal Grandfather Arthritis Paternal Grandmother Vision loss Maternal Grandfather Depression Paternal Grandmother Arthritis Paternal Grandfather [4] Allergies Allergen Reactions Nickel Rash Zinc Rash Cosigned by Betsy Montalvo MD at 11/30/2024 10:22 PM EDT Associated attestation - Betsy Montalvo MD - 11/30/2024 10:22 PM EDT Attending Supervising Physician's Attestation Statement for ICU Admission I have personally seen the patient and examined along with the resident. I personally obtained the daniels and relevent portions of the history and performed physical exam. I reviewed the chart including MAR, labs, and radiology and agree with the patient's plan of action as discussed with the resident. This note reflects my plan of care as I have edited the note to reflect my findings and my assessment and plan. ROS documentation was reviewed and negative unless otherwise stated in HPI. Chief Complaint: Acute Toxic Metabolic encephalopathy Additional pertinent history, ROS, and physical exam findings: 44 yo M PMH EtOH Abuse, Opioid abuse who presents for EtOH detox. Patient was noted to have stopped drinking after a 10 day drinking binge. He was noted to be agitated requiring phenobarb, haldol, diazepam, and ativan. He was still having withdrawal symptoms and ICU consulted for further evaluation. Patient seen and examined. Awake, alert, follows commands. Diaphoretic and tachycardic, appears agitated when left alone. Physical Exam Constitutional: General Appearance [x]WDWN []Obese []Cachectic []Thin []Ill Eyes: Inspection of Pupils/Irises Pupils round and react: [x]Yes []No Sclera: []Icteric [x]Non-Icteric Inspection of Conjunctiva/Lids Conjunctiva: []Injected [x]Non-Injected Lids: [x]Intact []Lesion Present ENT/Mouth: External Inspection of ears/nose [x] Normal [] Scar/Lesion/Mass Inspection of teeth/lips/gums Dentition: [x][place] Teeth []Dentures Lips/Gums: [x]Intact []Lesion Present Mucosa: [x][place] [x]Moist []Dry Neck: External Appearance Overall Appearance: [x]Normal []Lesion/Mass/Crepitus Present Trachea midline: [x]Yes []No Thyroid [x]Normal []Enlarged []Tender []Mass []Absent Respiratory: Respiratory effort [x]Labored []Non-Labored [] Mechanically-Ventilated Auscultation [x]Clear []Crackles []Wheezes [][place]hon[place] Cardiovascular: Auscultation Rate: []Regular []Irregular [x]Tachycardia []Bradycardia Rhythm: [x]Regular []Irregular Murmur: []Present []Absent Extremities Peripheral Edema: []Present [x]Absent Varicosities: []Present []Absent Gastrointestinal: Abdomen Palpation: [x]Soft []Firm []Tender [x]Non-Tender []Distended [x]Non-distended Mass: []Present [x]Absent Bowel Sounds: [x]Present []Absent Hernia: []Present []Absent Liver/Spleen: []Hepatosplenomegaly []Organomegaly Absent Musculoskeletal: Inspection of Digits and Nails Cyanosis: []Present [x]Absent Clubbing: []Present [x]Absent Ischemia: []Present [x]Absent Infection: []Present [x]Absent Extremities CADENA Equally: Except ([]RUE []RLE []LUE []LLE) Strength/Tone: Intact and Normal ([x]RUE [x]RLE [x]LUE [x]LLE) Skin: Inspection [x]Diaphoretic []Rash []Lesion []Ulcer Palpation [x]Warm []Cool []Dry []Clammy []Nodules []Induration []Skin-tightening Cap-Refill: [x] <3 sec [] >3 seconds (delayed) Neurologic: GCS EYE: 4 - Opens spontaneously GCS MOTOR: 6 - Obeys commands for movement GCS VERBAL: 5 - Oriented to person, place, time Total GCS: 15 [] Sensation grossly intact Psych: Mental Status Alert: [x]Yes [] No Oriented: []x0 []X1 []X2 []x3 Mood/Affect []Normal []Flat [x]Agitated []Depressed []Anxious []Calm []Sedated []NAD Assessment and Plan: Acute Alcohol withdrawal EtOH Abuse HAGMA Lactic acidosis Hypokalemia Elevated AST Microcytosis - Admit to ICU - Phenobarb load and q6 hours - CIWA protocol - lactic acid cleared - thiamine/folic acid. - green slipped acute withdrawal symptoms. - ADM consulted - NPO with enteral medications. Code Status: Full Code Disposition: Admit to ICU Total critical care time caring for this patient with life threatening, unstable organ failure, including direct patient contact, management of life support systems, review of data including imaging and labs, discussions with other team members and physicians is 40 minutes, excluding procedures. Betsy Montalvo MD Pulmonary and Critical Care Medicine Attending Pager #[phone] [employer] Work Phone: 11-30-2024 Note [employer] [facility] 11-30-2024 History and physical note Images from the original note were not included. Internal Medicine: MICU Initial History and Physical Name: El Smith : 1980(44 y.o.) Date: 11/30/24 Attending: Dr. Montalvo Subjective: Chief Complaint: acute alcohol intoxication HPI: Patient is a 44-year-old male with a past medical history significant for alcohol-use disorder and opioid-use disorder who presented to [place] ED on 11/29/2024 via EMS after a mechanical fall secondary to alcohol intoxication. Patient transferred to [facility] ICU for alcohol withdrawal management. In the ED, vitals are notable for a HR of 131, RR of 30, and BP of 145/78. He was saturating 95% on room air. Labs notable for a potassium of 2.6, lactic acid of 4.4, and a hemoglobin of 12.6 with an MCV of 12.6. CXR with no acute cardiopulmonary process. CT head with no acute intracranial process. The patient was given Haldol in the ED. He was also given oral Valium and IV Ativan. On evaluation, the patient is alert and oriented x 3. He is lethargic but arousable. He reports a 10-day drinking binge consisting of mostly 100 proof alcohol. His last drink was 11/29/2024. He notes he does follow with an addiction medicine physician outside of the hospital. Medical History[1] Surgical History[2] Family History[3] Social History Socioeconomic History Marital status: Single Spouse name: Not on file Number of children: Not on file Years of education: Not on file Highest education level: Not on file Occupational History Not on file Tobacco Use Smoking status: Every Day Current packs/day: 0.50 Average packs/day: 0.5 packs/day for 1 year (0.5 ttl pk-yrs) Types: Cigarettes Start date: 12/2023 Smokeless tobacco: Never Vaping Use Vaping status: Every Day Substances: THC Substance and Sexual Activity Alcohol use: Yes Comment: 10-15 shots of whiskey Drug use: Yes Types: Marijuana Comment: 08/10/24 denies other drug use; vapes marijuana uses methadone, also buys pain meds on the streets Sexual activity: Not on file Other Topics Concern Not on file Social History Narrative Not on file Social Drivers of Health Financial Resource Strain: Low Risk (02/17/2024) Overall Financial Resource Strain (CARDIA) Difficulty of Paying Living Expenses: Not very hard Food Insecurity: No Food Insecurity (02/17/2024) Hunger Vital Sign Worried About Running Out of Food in the Last Year: Never true Ran Out of Food in the Last Year: Never true Transportation Needs: Unmet Transportation Needs (04/21/2023) PRAPARE - Transportation Lack of Transportation (Medical): Yes Lack of Transportation (Non-Medical): Yes Physical Activity: Not on file Stress: Not on file Social Connections: Socially Isolated (02/17/2024) Social Connection and Isolation Panel [NHANES] Frequency of Communication with Friends and Family: More than three times a week Frequency of Social Gatherings with Friends and Family: More than three times a week Attends Confucianist Services: Never Active Member of Clubs or Organizations: No Attends Club or Organization Meetings: Never Marital Status: Never Intimate Partner Violence: Not At Risk (02/14/2024) Humiliation, Afraid, Rape, and Kick questionnaire Fear of Current or Ex-Partner: No Emotionally Abused: No Physically Abused: No Sexually Abused: No Housing Stability: Low Risk (02/17/2024) Housing Stability Vital Sign Unable to Pay for Housing in the Last Year: No Number of Times Moved in the Last Year: 0 Homeless in the Last Year: No Allergies[4] Prior to Admission medications Medication Sig Start Date End Date Taking? Authorizing Provider acamprosate (Campral) 333 MG EC tablet Take 2 tablets (666 mg) by mouth 3 times daily. Do not crush, chew, or split. 06/20/24 06/20/25 Catalino Choudhary MD acetaminophen (Tylenol Extra Strength) 500 MG tablet Take 2 tablets (1,000 mg) by mouth every 8 hours as needed for mild pain (1-3), moderate pain (4-6) or headaches. 07/04/24 07/04/25 Catalino Choudhary MD busPIRone (Buspar) 15 MG tablet Take 1 tablet (15 mg) by mouth every 8 hours. 05/30/24 05/30/25 Catalino Choudhary MD clonazePAM (KlonoPIN) 0.25 MG disintegrating tablet Take 1 tablet (0.25 mg) by mouth 3 times daily as needed for anxiety for up to 28 days. 09/19/24 10/17/24 Catalino Choudhary MD Docusate Sodium (DSS) 100 MG capsule Take 1 capsule (100 mg) by mouth 2 times daily. 05/30/24 05/30/25 Catalino Choudhary MD naloxone (Narcan) 4 mg/0.1 mL nasal spray Administer 1 spray (4 mg) into affected nostril(s) as needed for opioid reversal. May repeat every 2-3 minutes if needed, alternating nostrils, until medical assistance becomes available. 03/20/24 03/20/25 Catalino Choudhary MD omeprazole (PriLOSEC) [address] capsule Take 1 capsule (40 mg) by mouth every morning (before breakfast). Do not crush or chew. 08/30/24 08/30/25 Catalino Choudhary MD prazosin (Minipress) 5 MG capsule Take 2 capsules (10 mg) by mouth Nightly. 08/30/24 08/30/25 Catalino Choudhary MD QUEtiapine (SEROquel) 50 MG tablet Take 3 tablets (150 mg) by mouth Nightly. 08/30/24 08/30/25 Catalino Choudhary MD sertraline (Zoloft) 50 MG tablet Take 3 tablets (150 mg) by mouth daily. 07/30/24 Catalino Choudhary MD Objective: Oxygen Delivery: VITALS: BP (!) 155/112 Pulse (!) 121 Temp 37.8 C (100 F) (Oral) Comment: MD aware Resp (!) 27 Wt 165 lb (74.8 kg) SpO2 94% BMI 23.68 kg/m CURRENT PULSE OXIMETRY: SpO2: 94 % Review of Systems Constitutional: Positive for diaphoresis. Gastrointestinal: Positive for abdominal pain and diarrhea. Constitutional: General Appearance []WDWN []Obese []Cachectic []Thin [x]Ill Eyes: Inspection of Pupils/Irises Pupils round and react: [x]Yes []No Sclera: []Icteric [x]Non-Icteric Inspection of Conjunctiva/Lids Conjunctiva: []Injected [x]Non-Injected Lids: [x]Intact []Lesion Present ENT/Mouth: External Inspection of ears/nose [x] Normal [] Scar/Lesion/Mass Inspection of teeth/lips/gums Dentition: [][place] Teeth []Dentures Lips/Gums: []Intact []Lesion Present Mucosa: [][place] []Moist []Dry Neck: External Appearance Overall Appearance: [x]Normal []Lesion/Mass/Crepitus Present Trachea midline: []Yes []No Thyroid []Normal []Enlarged []Tender []Mass []Absent Respiratory: Respiratory effort []Labored [x]Non-Labored [] Mechanically-Ventilated Auscultation [x]Clear []Crackles []Wheezes []Rhonchi Cardiovascular: Auscultation Rate: []Regular []Irregular [x]Tachycardia []Bradycardia Rhythm: [x]Regular []Irregular Murmur: []Present []Absent Extremities Peripheral Edema: []Present []Absent Varicosities: []Present []Absent Gastrointestinal: Abdomen Palpation: [x]Soft []Firm [x]Tender []Non-Tender []Distended [x]Non-distended Mass: []Present []Absent Bowel Sounds: []Present []Absent Hernia: []Present []Absent Liver/Spleen: []Hepatosplenomegaly []Organomegaly Absent Musculoskeletal: Inspection of Digits and Nails Cyanosis: []Present [x]Absent Clubbing: []Present [x]Absent Ischemia: []Present [x]Absent Infection: []Present [x]Absent Extremities CADENA Equally: Except ([]RUE []RLE []LUE []LLE) Strength/Tone: Intact and Normal ([]RUE []RLE []LUE []LLE) Skin: Inspection [x]Normal []Rash []Lesion []Ulcer Palpation [x]Warm []Cool [x]Dry []Clammy []Nodules []Induration []Skin-tightening Cap-Refill: [] <3 sec [] >3 seconds (delayed) Neurologic: GCS EYE: 4 - Opens spontaneously GCS MOTOR: 6 - Obeys commands for movement GCS VERBAL: 5 - Oriented to person, place, time Total GCS: 15 [] Sensation grossly intact Psych: Mental Status Alert: [x]Yes [] No Oriented: []x0 []X1 []X2 [x]x3 Mood/Affect []Normal []Flat []Agitated []Depressed []Anxious []Calm []Sedated []NAD [facility] within last 24 hours- BMP: Recent Labs 11/29/24182811/30/24 07 NA 145 134* K 2.6* 2.7* CL 100 96* CO2 26 26 BUN 19 18 CREATININE 0.76 0.70* CALCIUM 8.0* 7.2* LFTs: Recent Labs 11/29/24182811/30/24 0719 AST 55* -- ALT 19 -- PROT 6.9 -- ALBUMIN 3.2* -- BILITOT 0.4 -- ALKPHOS 124 -- LIPASE -- 38 Glucose: Recent Labs 11/29/24182811/29/24184911/30/24 0719 GLUCOSE 122* -- 103* POCGLU -- 125* -- Procal: No results for input(s): PROCAL in the last 72 hours. CBC: Recent Labs 11/29/241828 WBC 8.7 HGB 12.6* HCT 40.1 PLT 321 MCV 71.9* RDW 23.2* ABGs: Recent Labs 11/29/24 182 [id number] None (Room Air) Lactic Acid: Recent Labs 11/29/24 1853 11/30/24 0228 11/30/24 0904 LACTATE 4.4* 3.5* 2.9* INR: Recent Labs 11/29/241828 INR 1.2* Cardiac Injury Profile: No results for input(s): CKTOTAL, CKMB, TROPONINI in the last 72 hours. Labs in Last 3 months: Lab Results Component Value Date TSH 0.47 05/27/2024 INR 1.2 (H) 11/29/2024 Microbiology- Urine Cx: No results found for: URINECX Blood Cx: Lab Results Component Value Date BLOODCX Blood culture incubation started 11/29/2024 Sputum Cx: Lab Results Component Value Date RESPCULT Few respiratory mack present. 04/20/2023 Gram Stain: Lab Results Component Value Date LABGRAM Moderate Epithelial cells per low power field (A) 04/20/2023 LABGRAM (A) 04/20/2023 Few Polymorphonuclear leukocytes per low power field LABGRAM Few Gram positive cocci (A) 04/20/2023 LABGRAM Rare Gram positive bacilli (A) 04/20/2023 PNA PCR: Lab Results Component Value Date HUMANMETAPNE Not Detected 04/20/2023 COVID19: No results found for: COVID19 Legionella Ag: Lab Results Component Value Date LEGIONELLAPN Not Detected 04/20/2023 Strep Ag: No results for input(s): STREPPNEUMO in the last 72 hours. Imaging- CT orbits/sella wo IV contrast Result Date: 11/29/2024 Impression: No acute abnormality of the orbits. Report Dictated on Electronically Signed By: Renato Rascon MD Electronically Signed Date/Time: 11/29/2024 6:[address] head wo IV contrast Result Date: 11/29/2024 Impression: No acute intracranial hemorrhage or mass effect. Report Dictated on Electronically Signed By: Renato Rascon MD Electronically Signed Date/Time: 11/29/2024 6:49 PM EDT XR chest 1 view Result Date: 11/29/2024 Impression: No radiographic acute cardiopulmonary process. Report Dictated on Electronically Signed By: Chela Cleaning MD Electronically Signed Date/Time: 11/29/2024 6:30 PM EDT ECG 12 lead Result Date: 11/29/2024 Impression: Sinus tachycardia Probable left atrial enlargement Nonspecific repol abnormality, lateral leads Compared to ECG 05/27/2024 09:03:06 Early repolarization now present Left ventricular hypertrophy no longer present Myocardial infarct finding no longer present Assessment and Plan: Principal Problem: Alcoholic intoxication without complication (CMS/HCC) ([facility]) Assessment: Alcohol withdrawal HAGMA Lactic acidosis Hypokalemia Elevated AST Microcytic anemia Plan: Admit to ICU Patient GREEN SLIPPED for lack of decision-making capacity Gave phenobarbital 374.4 mg for one-dose [5 mg/kg] Phenobarbital 65 mg every 6-hours, HOLD for RASS < -1 CIWA protocol Thiamine and folic acid supplementation Replete electrolytes as needed ADM consulted, recommendations appreciated Diet: NPO with enteral medications GI Prophylaxis: Pantoprazole IV DVT Prophylaxis: SCDs BMI Classification: Body mass index is 23.68 kg/m . 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 Drug abuse ([facility]) Gastroenteritis 11/23/2018 Last Assessment & Plan: Predominantly vomiting; ?food poisoning vs viral gastroenteritis IV hydration PRN antiemetics Hyperlipidemia Hypertension Iritis of left eye 09/20/2018 [facility] (myocardial infarction) ([facility]) Opioid dependence, uncomplicated ([facility]) 10/27/2021 Presence of stent in right coronary artery 10/02/2021 Sciatica Spinal stenosis, lumbar Tobacco abuse [2] Past Surgical History: Procedure Laterality Date ARM SURGERY (HISTORICAL) metal rods in adam upper extremities BACK SURGERY COLONOSCOPY CORONARY ANGIOPLASTY WITH STENT PLACEMENT 09/23/2021 DORIS to proximal RCA FRACTURE SURGERY [3] Family History Problem Relation Name Age of Onset Atrial fibrillation Sister Hyperlipidemia Mother Obesity Mother Asthma Mother Depression Mother Obesity Sister Depression Sister Arthritis Mother High Blood Pressure Maternal Grandmother Diabetes Mother Asthma Maternal Grandmother Substance Abuse Sister Diabetes Father Stroke Paternal Grandfather Arthritis Sister High Blood Pressure Mother Vision loss Maternal Grandmother Diabetes Maternal Grandmother Stroke Maternal Grandmother Arthritis Maternal Grandfather Arthritis Maternal Grandmother Cancer Maternal Grandfather Depression Maternal Grandmother Cancer Brother Diabetes Paternal Grandfather Stroke Paternal Grandmother Diabetes Maternal Grandfather Obesity Maternal Grandmother Depression Maternal Grandfather Arthritis Paternal Grandmother Vision loss Maternal Grandfather Depression Paternal Grandmother Arthritis Paternal Grandfather [4] Allergies Allergen Reactions Nickel Rash Zinc Rash Cosigned by Betsy Montalvo MD at 11/30/2024 10:22 PM EDT Associated attestation - Betsy Montalvo MD - 11/30/2024 10:22 PM EDT Attending Supervising Physician's Attestation Statement for ICU Admission I have personally seen the patient and examined along with the resident. I personally obtained the daniels and relevent portions of the history and performed physical exam. I reviewed the chart including MAR, labs, and radiology and agree with the patient's plan of action as discussed with the resident. This note reflects my plan of care as I have edited the note to reflect my findings and my assessment and plan. ROS documentation was reviewed and negative unless otherwise stated in HPI. Chief Complaint: Acute Toxic Metabolic encephalopathy Additional pertinent history, ROS, and physical exam findings: 44 yo M PMH EtOH Abuse, Opioid abuse who presents for EtOH detox. Patient was noted to have stopped drinking after a 10 day drinking binge. He was noted to be agitated requiring phenobarb, haldol, diazepam, and ativan. He was still having withdrawal symptoms and ICU consulted for further evaluation. Patient seen and examined. Awake, alert, follows commands. Diaphoretic and tachycardic, appears agitated when left alone. Physical Exam Constitutional: General Appearance [x]WDWN []Obese []Cachectic []Thin []Ill Eyes: Inspection of Pupils/Irises Pupils round and react: [x]Yes []No Sclera: []Icteric [x]Non-Icteric Inspection of Conjunctiva/Lids Conjunctiva: []Injected [x]Non-Injected Lids: [x]Intact []Lesion Present ENT/Mouth: External Inspection of ears/nose [x] Normal [] Scar/Lesion/Mass Inspection of teeth/lips/gums Dentition: [x][place] Teeth []Dentures Lips/Gums: [x]Intact []Lesion Present Mucosa: [x][place] [x]Moist []Dry Neck: External Appearance Overall Appearance: [x]Normal []Lesion/Mass/Crepitus Present Trachea midline: [x]Yes []No Thyroid [x]Normal []Enlarged []Tender []Mass []Absent Respiratory: Respiratory effort [x]Labored []Non-Labored [] Mechanically-Ventilated Auscultation [x]Clear []Crackles []Wheezes [][place]honchi Cardiovascular: Auscultation Rate: []Regular []Irregular [x]Tachycardia []Bradycardia Rhythm: [x]Regular []Irregular Murmur: []Present []Absent Extremities Peripheral Edema: []Present [x]Absent Varicosities: []Present []Absent Gastrointestinal: Abdomen Palpation: [x]Soft []Firm []Tender [x]Non-Tender []Distended [x]Non-distended Mass: []Present [x]Absent Bowel Sounds: [x]Present []Absent Hernia: []Present []Absent Liver/Spleen: []Hepatosplenomegaly []Organomegaly Absent Musculoskeletal: Inspection of Digits and Nails Cyanosis: []Present [x]Absent Clubbing: []Present [x]Absent Ischemia: []Present [x]Absent Infection: []Present [x]Absent Extremities CADENA Equally: Except ([]RUE []RLE []LUE []LLE) Strength/Tone: Intact and Normal ([x]RUE [x]RLE [x]LUE [x]LLE) Skin: Inspection [x]Diaphoretic []Rash []Lesion []Ulcer Palpation [x]Warm []Cool []Dry []Clammy []Nodules []Induration []Skin-tightening Cap-Refill: [x] <3 sec [] >3 seconds (delayed) Neurologic: GCS EYE: 4 - Opens spontaneously GCS MOTOR: 6 - Obeys commands for movement GCS VERBAL: 5 - Oriented to person, place, time Total GCS: 15 [] Sensation grossly intact Psych: Mental Status Alert: [x]Yes [] No Oriented: []x0 []X1 []X2 []x3 Mood/Affect []Normal []Flat [x]Agitated []Depressed []Anxious []Calm []Sedated []NAD Assessment and Plan: Acute Alcohol withdrawal EtOH Abuse HAGMA Lactic acidosis Hypokalemia Elevated AST Microcytosis - Admit to ICU - Phenobarb load and q6 hours - CIDE protocol - lactic acid cleared - thiamine/folic acid. - green slipped acute withdrawal symptoms. - ADM consulted - NPO with enteral medications. Code Status: Full Code Disposition: Admit to ICU Total critical care time caring for this patient with life threatening, unstable organ failure, including direct patient contact, management of life support systems, review of data including imaging and labs, discussions with other team members and physicians is 40 minutes, excluding procedures. Betsy Montalvo MD Pulmonary and Critical Care Medicine Attending Pager #[phone] documented in this encounter [facility] [place] 11-30-2024 Emergency department Note Phoned [facility] to give report. Nurse busy, asked that I call back later. [facility] [place] 11-30-2024 Emergency department Note Phoned [facility] to give report. Nurse busy, asked that I call back later. Pt awake and sitting upright in bed. Mom gave him some ice water. Pt out of bed again and attempted top leave - walking down the hallway. Stopped by security vehicle patrol officer and pt began pushing back at officer. Pt placed in 4 point leather restraints for safety. Pt continues to attempt to get out of bed frequently with security vehicle patrol officer sitting outside door. States he is leaving. Advised he cannot leave at this time. chief accounting officer sitting outside pt door. Pt continues to get out of bed frequently with mother @bedside. And side rails up x 2. Pt wants to go home. Advised pt and mother he cannot go home at this time, due to his fall risk and continued intoxication. Pt able to return to bed with much encouragement. Pt has been out of bed 2 more times. chief accounting officer standing by. Pt redirectable and returns to room. Pt got out of bed with mother @ bedside and side rails up x 2. Pt pulled his IV out and is bleeding all over the floor. Pt returned to room with assist of 2 staff. Pt statesI'm going to the drive thru. Pt advised not to get out of bed. DSD placed at IV site. chief accounting officer standing by. EMERGENCY DEPARTMENT ENCOUNTER Pt Name: El Smith Birthdate 1980 Date of evaluation: 11/29/2024 CHIEF COMPLAINT Chief Complaint Patient presents with Alcohol Intoxication Fall HISTORY OF PRESENT ILLNESS HPI El Smith is a 44 y.o. male who presents to the emergency department after drinking alcohol he per report from EMS head 40 bottles of alcohol or around him. He did fall and hurt his left eye head region. Reports double vision. Reports he can ambulate. REVIEW OF SYSTEMS Review of Systems Past Medical History: No date: Alcohol abuse No date: Anxiety No date: Back pain with sciatica 04/16/2023: Chest pain not due to acute coronary syndrome No date: Chronic back pain No date: Chronic leg pain No date: Chronic pain 09/18/2022: Community acquired bacterial pneumonia 09/20/2018: Corneal rust ring of left eye 10/02/2021: Coronary artery disease involving [place] coronary artery of [place] heart without angina pectoris No date: Degenerative disc disease, lumbar No date: Depression 11/03/2009: Discogenic syndrome, lumbar No date: Drug abuse ([facility]) 11/23/2018: Gastroenteritis Comment: Last Assessment & Plan: Predominantly vomiting; ?food poisoning vs viral gastroenteritis IV hydration PRN antiemetics No date: Hyperlipidemia No date: Hypertension 09/20/2018: Iritis of left eye No date: [facility] (myocardial infarction) ([facility]) 10/27/2021: Opioid dependence, uncomplicated ([facility]) 10/02/2021: Presence of stent in right coronary artery No date: Sciatica No date: Spinal stenosis, lumbar No date: Tobacco abuse Past Surgical History: No date: ARM SURGERY (HISTORICAL) Comment: metal rods in adam upper extremities No date: BACK SURGERY No date: COLONOSCOPY 09/23/2021: CORONARY ANGIOPLASTY WITH STENT PLACEMENT Comment: DORIS to proximal RCA No date: FRACTURE SURGERY CURRENT MEDICATIONS Previous Medications ACAMPROSATE (CAMPRAL) 333 MG EC TABLET Take 2 tablets (666 mg) by mouth 3 times daily. Do not crush, chew, or split. ACETAMINOPHEN (TYLENOL EXTRA STRENGTH) 500 MG TABLET Take 2 tablets (1,000 mg) by mouth every 8 hours as needed for mild pain (1-3), moderate pain (4-6) or headaches. BUSPIRONE (BUSPAR) 15 MG TABLET Take 1 tablet (15 mg) by mouth every 8 hours. CLONAZEPAM (KLONOPIN) 0.25 MG DISINTEGRATING TABLET Take 1 tablet (0.25 mg) by mouth 3 times daily as needed for anxiety for up to 28 days. DOCUSATE SODIUM (DSS) 100 MG CAPSULE Take 1 capsule (100 mg) by mouth 2 times daily. NALOXONE (NARCAN) 4 MG/0.1 ML NASAL SPRAY Administer 1 spray (4 mg) into affected nostril(s) as needed for opioid reversal. May repeat every 2-3 minutes if needed, alternating nostrils, until medical assistance becomes available. OMEPRAZOLE (PRILOSEC) [address] CAPSULE Take 1 capsule (40 mg) by mouth every morning (before breakfast). Do not crush or chew. PRAZOSIN (MINIPRESS) 5 MG CAPSULE Take 2 capsules (10 mg) by mouth Nightly. QUETIAPINE (SEROQUEL) 50 MG TABLET Take 3 tablets (150 mg) by mouth Nightly. SERTRALINE (ZOLOFT) 50 MG TABLET Take 3 tablets (150 mg) by mouth daily. ALLERGIES Nickel and Zinc SOCIAL HISTORY Social History Socioeconomic History Marital status: Single Spouse name: Not on file Number of children: Not on file Years of education: Not on file Highest education level: Not on file Occupational History Not on file Tobacco Use Smoking status: Every Day Current packs/day: 0.50 Average packs/day: 0.5 packs/day for 1 year (0.5 ttl pk-yrs) Types: Cigarettes Start date: 12/2023 Smokeless tobacco: Never Vaping Use Vaping status: Every Day Substances: THC Substance and Sexual Activity Alcohol use: Yes Comment: 10-15 shots of whiskey Drug use: Yes Types: Marijuana Comment: 08/10/24 denies other drug use; vapes marijuana uses methadone, also buys pain meds on the streets Sexual activity: Not on file Other Topics Concern Not on file Social History Narrative Not on file Social Drivers of Health Financial Resource Strain: Low Risk (02/17/2024) Overall Financial Resource Strain (CARDIA) Difficulty of Paying Living Expenses: Not very hard Food Insecurity: No Food Insecurity (02/17/2024) Hunger Vital Sign Worried About Running Out of Food in the Last Year: Never true Ran Out of Food in the Last Year: Never true Transportation Needs: Unmet Transportation Needs (04/21/2023) PRAPARE - Transportation Lack of Transportation (Medical): Yes Lack of Transportation (Non-Medical): Yes Physical Activity: Not on file Stress: Not on file Social Connections: Socially Isolated (02/17/2024) Social Connection and Isolation Panel [NHANES] Frequency of Communication with Friends and Family: More than three times a week Frequency of Social Gatherings with Friends and Family: More than three times a week Attends Confucianist Services: Never Active Member of Clubs or Organizations: No Attends Club or Organization Meetings: Never Marital Status: Never Intimate Partner Violence: Not At Risk (02/14/2024) Humiliation, Afraid, Rape, and Kick questionnaire Fear of Current or Ex-Partner: No Emotionally Abused: No Physically Abused: No Sexually Abused: No Housing Stability: Low Risk (02/17/2024) Housing Stability Vital Sign Unable to Pay for Housing in the Last Year: No Number of Times Moved in the Last Year: 0 Homeless in the Last Year: No PHYSICAL EXAM Vitals: 11/29/24 1808 BP: (!) 138/93 Patient Position: Lying Pulse: 87 Resp: 14 Temp: 36.3 C (97.4 F) TempSrc: Temporal SpO2: 97% Weight: 74.8 kg (165 lb) Physical Exam Vitals and nursing note reviewed. Constitutional: General: He is in acute distress. Eyes: Extraocular Movements: Extraocular movements intact. Right eye: Nystagmus present. Left eye: Nystagmus present. Pupils: Pupils are equal, round, and reactive to light. Cardiovascular: Rate and Rhythm: Regular rhythm. Heart sounds: Normal heart sounds. Pulmonary: Breath sounds: Normal breath sounds. Musculoskeletal: Cervical back: Normal range of motion. Skin: Coloration: Skin is not jaundiced. Neurological: Mental Status: He is alert. He is disoriented. Cranial Nerves: Cranial nerves 2-12 are intact. Sensory: Sensation is intact. Motor: No weakness. Coordination: Gmijfn-[id number]-[id number] Test abnormal. Psychiatric: Speech: Speech is delayed and slurred. Cognition and Memory: Memory is impaired. SCREENINGS Medical decision making DIAGNOSTIC RESULTS Procedures/EKG: Physician EKG interpretation can be found in [facility] if done Radiologist results reviewed: CT orbits/sella wo IV contrast Final Result No acute abnormality of the orbits. Report Dictated on Electronically Signed By: Renato Rascon MD Electronically Signed Date/Time: 11/29/2024 6:[address] head wo IV contrast Final Result No acute intracranial hemorrhage or mass effect. Report Dictated on Electronically Signed By: Renato Rascon MD Electronically Signed Date/Time: 11/29/2024 6:49 PM EDT XR chest 1 view Final Result No radiographic acute cardiopulmonary process. Report Dictated on Electronically Signed By: Chela Cleaning MD Electronically Signed Date/Time: 11/29/2024 6:30 PM EDT LABS: Labs Reviewed BLOOD GAS, VENOUS ([facility]) - Abnormal Result Value pH 7.487 (*) pCO2 33 (*) pO2 88 BASE EXCESS 2.0 HCO3 25.0 TCO2 26.0 O2 Saturation 97.0 (*) Source Of Oxygen None (Room Air) Amount Of Oxygen 0 CBC WITH AUTO DIFFERENTIAL - Abnormal Auto WBC 8.7 RBC 5.58 Hemoglobin 12.6 (*) Hematocrit 40.1 MCV 71.9 (*) MCH 22.6 (*) MCHC 31.4 RDW 23.2 (*) Platelets 321 MPV 9.0 nRBC 0.0 Neutrophils Relative 78.7 Lymphocytes Relative 13.7 (*) Monocytes Relative 6.2 Eosinophils Relative 0.1 Basophils Relative 1.0 Immature Grans % 0.3 Neutrophils Absolute 6.8 Lymphocytes Absolute 1.2 Monocytes Absolute 0.5 Eosinophils Absolute 0.0 Basophils Absolute 0.1 Immature Grans Absolute 0.0 COMPREHENSIVE METABOLIC PANEL - Abnormal SODIUM 145 POTASSIUM 2.6 (*) CHLORIDE 100 CARBON DIOXIDE 26 ANION GAP 19 (*) UREA NITROGEN 19 CREATININE 0.76 GLUCOSE 122 (*) CALCIUM 8.0 (*) AST (SGOT) 55 (*) ALT 19 ALKALINE PHOSPHATASE 124 ALBUMIN 3.2 (*) BILIRUBIN, TOTAL 0.4 TOTAL PROTEIN 6.9 eGFR >90.0 LACTIC ACID WITH REFLEX - Abnormal LACTIC ACID 4.4 (*) PROTHROMBIN TIME - Abnormal PROTHROMBIN TIME 13.0 (*) INR 1.2 (*) POCT GLUCOSE METER UNSOLICITED RESULTS - Abnormal Glucose 125 (*) Narrative: Performed by: Deandre Guevara, [address] [place] [address] CLIA ID: [id number] APTT - Normal APTT 26.8 Narrative: NOTE: The therapeutic time for Heparin anticoagulation, based on Xa activity inhibition, is an APTT of 46-80 seconds. AMMONIA - Normal AMMONIA 28 BLOOD CULTURE LACTIC ACID WITH REFLEX POCT GLUCOSE METER RADIOLOGY : Medications ordered: Medications sodium chloride 0.9 % bolus 1,000 mL (1,000 mL IntraVENous New Bag 11/29/24 1845) magnesium sulfate IVPB premix 2,000 mg (has no administration in time range) potassium chloride CR (Klor-Con M10) ER tablet 60 mEq (has no administration in time range) sodium chloride 0.9 % with KCl 40 mEq/L infusion (has no administration in time range) thiamine (Vitamin B1) 500 mg in sodium chloride 0.9 % 100 mL IVPB (500 mg IntraVENous New Bag 11/29/24 1856) LORazepam (Ativan) tablet 3 mg (3 mg Oral Given 11/29/24 1927) Diagnoses as of 11/30/24 0335 Fall, initial encounter Closed head injury, initial encounter Alcoholic intoxication without complication (CMS/HCC) (HCC) Hypokalemia * No order type specified * Our workup consisted of ordering/reviewing: Orders Placed This Encounter Procedures Blood culture Site #1 - Suspected Infection XR chest [address] head wo IV contrast CT orbits/sella wo IV contrast Blood gas, venous (Sandra and Green) CBC auto differential Comprehensive metabolic panel Lactic acid with reflex Protime-INR APTT Ammonia Lactic acid with reflex Cardiac monitoring Pulse Oximetry Vital Signs POCT glucose meter Insert peripheral IV Lactate elevation due to an acute condition that has a non-infectious source/process. Dehydration, possible alcoholic ketoacidosis, possible cirrhosis. Patient presented after drinking alcohol and falling. Imaging studies were ordered to assess him better including for injuries. Imaging studies do not show any injuries. He is able to ambulate without assistance in the ED. He is still confused. Ordered electrolyte replacement. IV fluids. REVAL: CRITICAL CARE TIME PROCEDURES: Procedures FINAL IMPRESSION 1. Alcoholic intoxication without complication (CMS/HCC) (HCC) 2. Fall, initial encounter 3. Closed head injury, initial encounter DISPOSITION/PLAN DISPOSITION Care transferred to Dr. Mir Fontana with reexam pending PATIENT REFERRED TO: No follow-up provider specified. I prescribed: New Prescriptions No medications on file (Comment: this report has been produced using speech recognition software and may contain errors related to that system including errors in grammar, punctuation, and spelling, as well as words and phrases) Kelvin Fernando MD (electronically signed) Kelvin Fernando MD [id number] Patient signed out to me at shift change by the previous provider. See initial note for details. This is a 44-year-old male who presented to the ED with alcohol intoxication. Reportedly drinks large amount of 100 proof liquor daily and has been on a binge for the last 10 days. He had been given Ativan and IV fluids. His labs showed a lactic of 4.4 and hypokalemia of 2.6. On my evaluation patient is intoxicated and continuously attempting to get out of bed. He is ripping out his IVs and pulling off his monitor leads. He is not able to cooperate with medical care and is at risk of injury to himself. I did order Haldol however prior to that security was called to the bedside and patient was temporarily placed in restraints due to high risk of self injury and fall from alcohol intoxication. After the patient was sedated with Haldol, an IV was placed and he was given IV fluids as well as IV potassium replacement. When the patient was evaluated when he was more awake, he is requesting alcohol detox and mom at the bedside also wants him to be admitted for detox. We will repeat his labs once he receives his fluid and potassium replacement and determine whether he is appropriate for the detox floor versus medicine floor. Patient was able to ambulate to the bathroom but afterwards was tachypneic, tachycardic and hypertensive. I suspect he is going into alcohol withdrawal and was given IV Ativan as well as a DuoNeb as he does have rhonchi on exam and a history of COPD. Patient reevaluated multiple times while in the ED. CIWA elevated. He was given oral Valium and IV Ativan. A repeat lactic downtrended from 4.4 to 3.5. Patient not appropriate for detox admit at this time. Will be admitted to the medicine service with detox consult. Jeovany Fontana DO 11/30/24 0337 Pt to ER by [facility] from home. Bystander called EMS due to pt fall. Pt admits to drinking a lot today. Pt with hx of drug and ETOH use. States he hit his face left side and right thakkar. + abrasion noted right thakkar. No active bleeding. Slight swelling left cheek around eye. No bruising noted. Pt answers questions appropriately, but slowly. Cooperative on arrival. Side rails up x 2 for safety. EMS stated they saw approx. 40 empty beer bottle/ cans in pt home. Pt oriented to person, place and year. Did not know the date or day. Call light in reach documented in this encounter [facility] [place] 11-29-2024 Emergency department Note Pt awake and sitting upright in bed. Mom gave him some ice water. [facility] [place] 11-29-2024 Emergency department Note Pt out of bed again and attempted top leave - walking down the hallway. Stopped by security vehicle patrol officer and pt began pushing back at officer. Pt placed in 4 point leather restraints for safety. [facility] [place] 11-29-2024 Note Pt out of bed again and attempted top leave - walking down the hallway. Stopped by security vehicle patrol officer and pt began pushing back at officer. Pt placed in 4 point leather restraints for safety. [facility] 11-29-2024 Emergency department Note Pt continues to attempt to get out of bed frequently with security vehicle patrol officer sitting outside door. States he is leaving. Advised he cannot leave at this time. [facility] [place] 11-29-2024 Emergency department Note chief accounting officer sitting outside pt door. Pt continues to get out of bed frequently with mother @bedside. And side rails up x 2. Pt wants to go home. Advised pt and mother he cannot go home at this time, due to his fall risk and continued intoxication. Pt able to return to bed with much encouragement. [facility] [place] 11-29-2024 Emergency department Note Pt has been out of bed 2 more times. chief accounting officer standing by. Pt redirectable and returns to room. [facility] [place] 11-29-2024 Emergency department Note Pt got out of bed with mother @ bedside and side rails up x 2. Pt pulled his IV out and is bleeding all over the floor. Pt returned to room with assist of 2 staff. Pt statesI'm going to the drive thru. Pt advised not to get out of bed. DSD placed at IV site. chief accounting officer standing by. [facility] 11-29-2024 Emergency department Triage note Pt to ER by [facility] from home. Bystander called EMS due to pt fall. Pt admits to drinking a lot today. Pt with hx of drug and ETOH use. States he hit his face left side and right thakkar. + abrasion noted right thakkar. No active bleeding. Slight swelling left cheek around eye. No bruising noted. Pt answers questions appropriately, but slowly. Cooperative on arrival. Side rails up x 2 for safety. EMS stated they saw approx. 40 empty beer bottle/ cans in pt home. Pt oriented to person, place and year. Did not know the date or day. Call light in reach T [facility] [place] 11-29-2024 Physician Emergency department Note EMERGENCY DEPARTMENT ENCOUNTER Pt Name: El Smith Birthdate 1980 Date of evaluation: 11/29/2024 CHIEF COMPLAINT Chief Complaint Patient presents with Alcohol Intoxication Fall HISTORY OF PRESENT ILLNESS HPI El Smith is a 44 y.o. male who presents to the emergency department after drinking alcohol he per report from EMS head 40 bottles of alcohol or around him. He did fall and hurt his left eye head region. Reports double vision. Reports he can ambulate. REVIEW OF SYSTEMS Review of Systems Past Medical History: No date: Alcohol abuse No date: Anxiety No date: Back pain with sciatica 04/16/2023: Chest pain not due to acute coronary syndrome No date: Chronic back pain No date: Chronic leg pain No date: Chronic pain 09/18/2022: Community acquired bacterial pneumonia 09/20/2018: Corneal rust ring of left eye 10/02/2021: Coronary artery disease involving [place] coronary artery of [place] heart without angina pectoris No date: Degenerative disc disease, lumbar No date: Depression 11/03/2009: Discogenic syndrome, lumbar No date: Drug abuse ([facility]) 11/23/2018: Gastroenteritis Comment: Last Assessment & Plan: Predominantly vomiting; ?food poisoning vs viral gastroenteritis IV hydration PRN antiemetics No date: Hyperlipidemia No date: Hypertension 09/20/2018: Iritis of left eye No date: VA (myocardial infarction) ([facility]) 10/27/2021: Opioid dependence, uncomplicated ([facility]) 10/02/2021: Presence of stent in right coronary artery No date: Sciatica No date: Spinal stenosis, lumbar No date: Tobacco abuse Past Surgical History: No date: ARM SURGERY (HISTORICAL) Comment: metal rods in adam upper extremities No date: BACK SURGERY No date: COLONOSCOPY 09/23/2021: CORONARY ANGIOPLASTY WITH STENT PLACEMENT Comment: DORIS to proximal RCA No date: FRACTURE SURGERY CURRENT MEDICATIONS Previous Medications ACAMPROSATE (CAMPRAL) 333 MG EC TABLET Take 2 tablets (666 mg) by mouth 3 times daily. Do not crush, chew, or split. ACETAMINOPHEN (TYLENOL EXTRA STRENGTH) 500 MG TABLET Take 2 tablets (1,000 mg) by mouth every 8 hours as needed for mild pain (1-3), moderate pain (4-6) or headaches. BUSPIRONE (BUSPAR) 15 MG TABLET Take 1 tablet (15 mg) by mouth every 8 hours. CLONAZEPAM (KLONOPIN) 0.25 MG DISINTEGRATING TABLET Take 1 tablet (0.25 mg) by mouth 3 times daily as needed for anxiety for up to 28 days. DOCUSATE SODIUM (DSS) 100 MG CAPSULE Take 1 capsule (100 mg) by mouth 2 times daily. NALOXONE (NARCAN) 4 MG/0.1 ML NASAL SPRAY Administer 1 spray (4 mg) into affected nostril(s) as needed for opioid reversal. May repeat every 2-3 minutes if needed, alternating nostrils, until medical assistance becomes available. OMEPRAZOLE (PRILOSEC) [address] CAPSULE Take 1 capsule (40 mg) by mouth every morning (before breakfast). Do not crush or chew. PRAZOSIN (MINIPRESS) 5 MG CAPSULE Take 2 capsules (10 mg) by mouth Nightly. QUETIAPINE (SEROQUEL) 50 MG TABLET Take 3 tablets (150 mg) by mouth Nightly. SERTRALINE (ZOLOFT) 50 MG TABLET Take 3 tablets (150 mg) by mouth daily. ALLERGIES [employer] SOCIAL HISTORY Social History Socioeconomic History Marital status: Single Spouse name: Not on file Number of children: Not on file Years of education: Not on file Highest education level: Not on file Occupational History Not on file Tobacco Use Smoking status: Every Day Current packs/day: 0.50 Average packs/day: 0.5 packs/day for 1 year (0.5 ttl pk-yrs) Types: Cigarettes Start date: 12/2023 Smokeless tobacco: Never Vaping Use Vaping status: Every Day Substances: THC Substance and Sexual Activity Alcohol use: Yes Comment: 10-15 shots of whiskey Drug use: Yes Types: Marijuana Comment: 08/10/24 denies other drug use; vapes marijuana uses methadone, also buys pain meds on the streets Sexual activity: Not on file Other Topics Concern Not on file Social History Narrative Not on file Social Drivers of Health Financial Resource Strain: Low Risk (02/17/2024) Overall Financial Resource Strain (CARDIA) Difficulty of Paying Living Expenses: Not very hard Food Insecurity: No Food Insecurity (02/17/2024) Hunger Vital Sign Worried About Running Out of Food in the Last Year: Never true Ran Out of Food in the Last Year: Never true Transportation Needs: Unmet Transportation Needs (04/21/2023) PRAPARE - Transportation Lack of Transportation (Medical): Yes Lack of Transportation (Non-Medical): Yes Physical Activity: Not on file Stress: Not on file Social Connections: Socially Isolated (02/17/2024) Social Connection and Isolation Panel [NHANES] Frequency of Communication with Friends and Family: More than three times a week Frequency of Social Gatherings with Friends and Family: More than three times a week Attends Confucianist Services: Never Active Member of Clubs or Organizations: No Attends Club or Organization Meetings: Never Marital Status: Never Intimate Partner Violence: Not At Risk (02/14/2024) Humiliation, Afraid, Rape, and Kick questionnaire Fear of Current or Ex-Partner: No Emotionally Abused: No Physically Abused: No Sexually Abused: No Housing Stability: Low Risk (02/17/2024) Housing Stability Vital Sign Unable to Pay for Housing in the Last Year: No Number of Times Moved in the Last Year: 0 Homeless in the Last Year: No PHYSICAL EXAM Vitals: 11/29/24 1808 BP: (!) 138/93 Patient Position: Lying Pulse: 87 Resp: 14 Temp: 36.3 C (97.4 F) TempSrc: Temporal SpO2: 97% Weight: 74.8 kg (165 lb) Physical Exam Vitals and nursing note reviewed. Constitutional: General: He is in acute distress. Eyes: Extraocular Movements: Extraocular movements intact. Right eye: Nystagmus present. Left eye: Nystagmus present. Pupils: Pupils are equal, round, and reactive to light. Cardiovascular: Rate and Rhythm: Regular rhythm. Heart sounds: Normal heart sounds. Pulmonary: Breath sounds: Normal breath sounds. Musculoskeletal: Cervical back: Normal range of motion. Skin: Coloration: Skin is not jaundiced. Neurological: Mental Status: He is alert. He is disoriented. Cranial Nerves: Cranial nerves 2-12 are intact. Sensory: Sensation is intact. Motor: No weakness. Coordination: Nmhybz-Mpqv-Agudsi Test abnormal. Psychiatric: Speech: Speech is delayed and slurred. Cognition and Memory: Memory is impaired. SCREENINGS Medical decision making DIAGNOSTIC RESULTS Procedures/EKG: Physician EKG interpretation can be found in [facility] if done Radiologist results reviewed: CT orbits/sella wo IV contrast Final Result No acute abnormality of the orbits. Report Dictated on Electronically Signed By: Renato Rascon MD Electronically Signed Date/Time: 11/29/2024 6:[address] head wo IV contrast Final Result No acute intracranial hemorrhage or mass effect. Report Dictated on Electronically Signed By: Renato Rascon MD Electronically Signed Date/Time: 11/29/2024 6:49 PM EDT XR chest 1 view Final Result No radiographic acute cardiopulmonary process. Report Dictated on Electronically Signed By: Chela Cleaning MD Electronically Signed Date/Time: 11/29/2024 6:30 PM EDT LABS: Labs Reviewed BLOOD GAS, VENOUS ([facility]) - Abnormal Result Value pH 7.487 (*) pCO2 33 (*) pO2 88 BASE EXCESS 2.0 HCO3 25.0 TCO2 26.0 O2 Saturation 97.0 (*) Source Of Oxygen None (Room Air) Amount Of Oxygen 0 CBC WITH AUTO DIFFERENTIAL - Abnormal Auto WBC 8.7 RBC 5.58 Hemoglobin 12.6 (*) Hematocrit 40.1 MCV 71.9 (*) MCH 22.6 (*) MCHC 31.4 RDW 23.2 (*) Platelets 321 MPV 9.0 nRBC 0.0 Neutrophils Relative 78.7 Lymphocytes Relative 13.7 (*) Monocytes Relative 6.2 Eosinophils Relative 0.1 Basophils Relative 1.0 Immature Grans % 0.3 Neutrophils Absolute 6.8 Lymphocytes Absolute 1.2 Monocytes Absolute 0.5 Eosinophils Absolute 0.0 Basophils Absolute 0.1 Immature Grans Absolute 0.0 COMPREHENSIVE METABOLIC PANEL - Abnormal SODIUM 145 POTASSIUM 2.6 (*) CHLORIDE 100 CARBON DIOXIDE 26 ANION GAP 19 (*) UREA NITROGEN 19 CREATININE 0.76 GLUCOSE 122 (*) CALCIUM 8.0 (*) AST (SGOT) 55 (*) ALT 19 ALKALINE PHOSPHATASE 124 ALBUMIN 3.2 (*) BILIRUBIN, TOTAL 0.4 TOTAL PROTEIN 6.9 eGFR >90.0 LACTIC ACID WITH REFLEX - Abnormal LACTIC ACID 4.4 (*) PROTHROMBIN TIME - Abnormal PROTHROMBIN TIME 13.0 (*) INR 1.2 (*) POCT GLUCOSE METER UNSOLICITED RESULTS - Abnormal Glucose 125 (*) Narrative: Performed by: Deandre Guevara, [address] [place] [address] CLIA ID: [id number] APTT - Normal APTT 26.8 Narrative: NOTE: The therapeutic time for Heparin anticoagulation, based on Xa activity inhibition, is an APTT of 46-80 seconds. AMMONIA - Normal AMMONIA 28 BLOOD CULTURE LACTIC ACID WITH REFLEX POCT GLUCOSE METER RADIOLOGY : Medications ordered: Medications sodium chloride 0.9 % bolus 1,000 mL (1,000 mL IntraVENous New Bag 11/29/24 1845) magnesium sulfate IVPB premix 2,000 mg (has no administration in time range) potassium chloride CR (Klor-Con M10) ER tablet 60 mEq (has no administration in time range) sodium chloride 0.9 % with KCl 40 mEq/L infusion (has no administration in time range) thiamine (Vitamin B1) 500 mg in sodium chloride 0.9 % 100 mL IVPB (500 mg IntraVENous New Bag 11/29/24 1856) LORazepam (Ativan) tablet 3 mg (3 mg Oral Given 11/29/24 192) Diagnoses as of 11/30/24 0335 Fall, initial encounter Closed head injury, initial encounter Alcoholic intoxication without complication (CMS/HCC) (HCC) Hypokalemia * No order type specified * Our workup consisted of ordering/reviewing: Orders Placed This Encounter Procedures Blood culture Site #1 - Suspected Infection XR chest [address] head wo IV contrast CT orbits/sella wo IV contrast Blood gas, venous (Sandra and [place]) CBC auto differential Comprehensive metabolic panel Lactic acid with reflex Protime-INR APTT Ammonia Lactic acid with reflex Cardiac monitoring Pulse Oximetry Vital Signs POCT glucose meter Insert peripheral IV Lactate elevation due to an acute condition that has a non-infectious source/process. Dehydration, possible alcoholic ketoacidosis, possible cirrhosis. Patient presented after drinking alcohol and falling. Imaging studies were ordered to assess him better including for injuries. Imaging studies do not show any injuries. He is able to ambulate without assistance in the ED. He is still confused. Ordered electrolyte replacement. IV fluids. REVAL: CRITICAL CARE TIME PROCEDURES: Procedures FINAL IMPRESSION 1. Alcoholic intoxication without complication (CMS/HCC) (HCC) 2. Fall, initial encounter 3. Closed head injury, initial encounter DISPOSITION/PLAN DISPOSITION Care transferred to Dr. Mir Fontana with reexam pending PATIENT REFERRED TO: No follow-up provider specified. I prescribed: New Prescriptions No medications on file (Comment: this report has been produced using speech recognition software and may contain errors related to that system including errors in grammar, punctuation, and spelling, as well as words and phrases) Kelvin Fernando MD (electronically signed) Kelvin Fernando MD 11/29/241938 [facility] [place] 11-29-2024 Physician Emergency department Note Patient signed out to me at shift change by the previous provider. See initial note for details. This is a 44-year-old male who presented to the ED with alcohol intoxication. Reportedly drinks large amount of 100 proof liquor daily and has been on a binge for the last 10 days. He had been given Ativan and IV fluids. His labs showed a lactic of 4.4 and hypokalemia of 2.6. On my evaluation patient is intoxicated and continuously attempting to get out of bed. He is ripping out his IVs and pulling off his monitor leads. He is not able to cooperate with medical care and is at risk of injury to himself. I did order Haldol however prior to that security was called to the bedside and patient was temporarily placed in restraints due to high risk of self injury and fall from alcohol intoxication. After the patient was sedated with Haldol, an IV was placed and he was given IV fluids as well as IV potassium replacement. When the patient was evaluated when he was more awake, he is requesting alcohol detox and mom at the bedside also wants him to be admitted for detox. We will repeat his labs once he receives his fluid and potassium replacement and determine whether he is appropriate for the detox floor versus medicine floor. Patient was able to ambulate to the bathroom but afterwards was tachypneic, tachycardic and hypertensive. I suspect he is going into alcohol withdrawal and was given IV Ativan as well as a DuoNeb as he does have rhonchi on exam and a history of COPD. Patient reevaluated multiple times while in the ED. CIWA elevated. He was given oral Valium and IV Ativan. A repeat lactic downtrended from 4.4 to 3.5. Patient not appropriate for detox admit at this time. Will be admitted to the medicine service with detox consult. Jeovany Fontana DO 11/30/24 0337 [facility] 11-12-2024 Telephone encounter Note Tried to call 11/12/24 No Voice Mail Tried to call patient to schedule appt with Dr Choudhary to start at our office instead of IOP. If patient calls in when need to schedule appt With Kenrick [facility] 11-12-2024 Miscellaneous Notes Tried to call 11/12/24 No Voice Mail Tried to call patient to schedule appt with Dr Choudhary to start at our office instead of IOP. If patient calls in when need to schedule appt With Kenrick documented in this encounter [facility] 08-29-2024 History of Present illness Narrative Images from the original note were not included. ADDICTION MEDICINE PROGRESS NOTE Patient: El Smith Problem List: Active Problems: There are no active Hospital Problems. SUBJECTIVE Seen and examined. Mother with Pt as usual. Doing well overall. Denies any major concerns. Has continued to smoke tobacco and has not established with family medicine or cardiology. No relapse, cravings, use dreams or use thoughts. Notes that he feels pretty good these days. Notes that the 0.25mg of Klonopin has been extremely helpful to him to keep him from exploding or freaking out. Notes no other concerns at this time. Appetite, mood and sleep are all stable. Review of Systems A 14 system ROS was collected and is negative unless otherwise noted above. OBJECTIVE Physical Exam Constitutional: Appearance: Normal appearance. HENT: Head: Normocephalic and atraumatic. Nose: Nose normal. Mouth/Throat: Mouth: Mucous membranes are dry. Eyes: Extraocular Movements: Extraocular movements intact. Pupils: Pupils are equal, round, and reactive to light. Cardiovascular: Rate and Rhythm: Normal rate and regular rhythm. Pulmonary: Effort: Pulmonary effort is normal. No respiratory distress. Abdominal: General: There is no distension. Palpations: Abdomen is soft. Musculoskeletal: General: No deformity. Normal range of motion. Cervical back: Normal range of motion and neck supple. Skin: General: Skin is warm and dry. Neurological: General: No focal deficit present. Mental Status: He is alert and oriented to person, place, and time. Psychiatric: Mood and Affect: Mood normal. Behavior: Behavior normal. Medications Home Meds Current Outpatient Medications Medication Instructions acamprosate (CAMPRAL) 666 mg, Oral, 3 times daily, Do not crush, chew, or split. acetaminophen (TYLENOL EXTRA STRENGTH) 1,000 mg, Oral, Every 8 hours PRN buprenorphine-naloxone (Suboxone) 8-2 MG per sublingual film 1 Film, SubLINGual, 3 times daily busPIRone (BUSPAR) 15 mg, Oral, Every 8 hours clonazePAM (KLONOPIN) 0.25 mg, Oral, 3 times daily PRN DSS 100 mg, Oral, 2 times daily naloxone (NARCAN) 4 mg, Nasal, PRN, May repeat every 2-3 minutes if needed, alternating nostrils, until medical assistance becomes available. omeprazole (PRILOSEC) 40 mg, Oral, Daily before breakfast, Do not crush or chew. prazosin (MINIPRESS) 10 mg, Oral, Nightly QUEtiapine (SEROQUEL) 150 mg, Oral, Nightly sertraline (ZOLOFT) 150 mg, Oral, Daily Scheduled Inpatient Meds Scheduled Meds[1] PRN Inpatient Meds PRN Meds[2] Continuous Inpatient Infusions Continuous Meds[3] Recent Imaging No results found. Labs No results found for this or any previous visit (from the past 24 hours). ASSESSMENT & PLAN Severe opioid use disorder, dependence, on MAT Severe alcohol use disorder, dependence on MAT Stimulant use disorder, in remission on MAT Cannabis use disorder - active use but decreasing Tobacco use disorder - improving, less than 1/4 PPD from 3 packs Formerly on Methadone (125mg daily at max) through [facility] Reading (last Apr 2023) Continues to smoke tobacco despite repeated cessation encouragement. Smoking a small amount of THC noting it helps me sleep. Continue Suboxone 8mg SL TID Continue Campral 666mg PO TID Continue to encourage tobacco and THC cessation No cravings, use dreams, use thoughts or relapse. OARRS reviewed today and is negative unless noted below: 09/19/2024 09/19/2024 2 Buprenorphine-Nalox 8-2mg Film 84.00 28 [facility] 08/30/2024 08/30/2024 2 Clonazepam 0.25 Mg Odt 84.00 28 [facility] 08/22/2024 08/01/2024 2 Buprenorphine-Nalox 8-2mg Film 84.00 28 [facility] 08/01/2024 07/04/2024 2 Buprenorphine-Nalox 8-2mg Film 42.00 21 [facility] 08/01/2024 08/01/2024 2 Clonazepam 0.25 Mg Odt 84.00 28 [facility] 07/04/2024 06/20/2024 2 Buprenorphine-Nalox 8-2mg Film 84.00 28 [facility] 07/04/2024 07/04/2024 2 Clonazepam 0.25 Mg Odt 42.00 28 [facility] 06/20/2024 06/20/2024 2 Clonazepam 0.25 Mg Odt 42.00 14 [facility] 06/07/2024 06/07/2024 2 Clonazepam 0.25 Mg Odt 28.00 14 [facility] 06/05/2024 05/30/2024 2 Buprenorphine-Nalox 8-2mg Film 84.00 28 [facility] 05/30/2024 05/30/2024 2 Chlordiazepoxide 5 Mg Capsule 36.00 3 [facility] 05/10/2024 05/09/2024 2 Buprenorphine-Nalox 8-2mg Film 84.00 28 [facility] 04/23/2024 04/23/2024 2 Buprenorphine-Nalox 8-2mg Film 42.00 14 [facility] 04/02/2024 03/23/2024 2 Buprenorphine-Nalox 8-2mg Film 42.00 14 [facility] 03/20/2024 03/20/2024 2 Buprenorphine-Nalox 8-2mg Film 32.00 14 [facility] Severe LEEANNE MDD, Moderate, Recurrent Complex PTSD Insomnia Hx of SI w/o SA 2/2 chronic pain Lengthy mental health history No SI/HI or AVH Lengthy discussion surrounding Klonopin use, random UDS and any abuse will result in immediate cessation of medication. Since BZD ordered notes that he is not having any panic attacks or outbursts No red flags reported or observed PLAN: Buspar to 15mg PO Q8H Seroquel 50mg PO at bedtime scheduled Prazosin 10mg PO at bedtime Zoloft 150mg PO Daily Klonopin 0.25mg PO TID PRN for anxiety Multiple L spine disk bulges Lumbar spinal stenosis Chronic b/l sciatica Multiple facial fractures - bilateral Humeral head fracture - RIGHT Thumb fracture - RIGHT Utilize suboxone for both OUD and chronic pain. Not a surgical candidate per ortho No longer followed by ortho. Pain has not been an issue since relapse in june. Needs to establish with FM / Cards - Pt not engaging with either. Has been reminded on every encounter that [facility] will no longer manage his chronic conditions and that he needs to establish care. Unfortunately it seems that the Pt's mother continues to enable the Pt and reinforce his lack of establishing care noting you have helped us when he was in bad shape and we don't want to go to any other doctors. Pt's mother and Pt informed that patient has been stabilized and it is inappropriate for [facility] to continue to prescribe and manage conditions that are not directly related to Pt's addictions. Pt and mother verbalized understanding but note that they do not intent to follow up with other physicians. Courtesy scripts have already been in place and will not be refilled unless directly related to the Pt's behavioral health. A total of 45 minutes were spent reviewing the patient's records, evaluating the patient, entering orders, coordinating care with the treatment team, and creating this note. [1] [2] [3] documented in this encounter [facility] [place] 08-10-2024 Emergency department Triage note Pt ambulatory to ED3 with mother with c/o facial swelling first noted this morning. Pt denies exposure to any potential allergens, no new meds/foods/soaps/lotions/detergent s. [facility] [place] 08-10-2024 Emergency department Note Pt ambulatory to ED3 with mother with c/o facial swelling first noted this morning. Pt denies exposure to any potential allergens, no new meds/foods/soaps/lotions/detergent s. EMERGENCY DEPARTMENT ENCOUNTER Pt Name: El Smith Birthdate 1980 Date of evaluation: 08/10/2024 ED Provider: Ramesh Grimaldo MD CHIEF COMPLAINT Chief Complaint Patient presents with Facial Swelling HISTORY OF PRESENT ILLNESS (Location/Symptom, Timing/Onset, Context/Setting, Quality, Duration, Modifying Factors, Severity) Note limiting factors. I wore appropriate PPE for the entirety of this encounter. HPI El Smith is a 43 y.o. who presents to the emergency department with facial swelling, no trauma, no pain, its improved after he took Motrin this morning Nursing Notes were reviewed. Limitations to history: None Outside historians: Family REVIEW OF SYSTEMS Review of Systems Pertinent positives and negatives as per HPI 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 Drug abuse (HCC) Gastroenteritis 11/23/2018 Last Assessment & Plan: Predominantly vomiting; ?food poisoning vs viral gastroenteritis IV hydration PRN antiemetics Hyperlipidemia Hypertension Iritis of left eye 09/20/2018 [facility] Opioid dependence, uncomplicated ([facility]) 10/27/2021 Presence of stent in right coronary artery 10/02/2021 Sciatica Spinal stenosis, lumbar Tobacco abuse SURGICAL HISTORY Past Surgical History: Procedure Laterality Date ARM SURGERY (HISTORICAL) metal rods in adam upper extremities BACK SURGERY COLONOSCOPY CORONARY ANGIOPLASTY WITH STENT PLACEMENT 09/23/2021 DORIS to proximal RCA FRACTURE SURGERY CURRENT MEDICATIONS Previous Medications ACAMPROSATE (CAMPRAL) 333 MG EC TABLET Take 2 tablets (666 mg) by mouth 3 times daily. Do not crush, chew, or split. ACETAMINOPHEN (TYLENOL EXTRA STRENGTH) 500 MG TABLET Take 2 tablets (1,000 mg) by mouth every 8 hours as needed for mild pain (1-3), moderate pain (4-6) or headaches. BUPRENORPHINE-NALOXONE (SUBOXONE) 8-2 MG PER SUBLINGUAL FILM Place 1 Film under the tongue 3 times daily for 28 days. BUSPIRONE (BUSPAR) 15 MG TABLET Take 1 tablet (15 mg) by mouth every 8 hours. CLONAZEPAM (KLONOPIN) 0.25 MG DISINTEGRATING TABLET Take 1 tablet (0.25 mg) by mouth 3 times daily as needed for anxiety for up to 28 days. DOCUSATE SODIUM (DSS) 100 MG CAPSULE Take 1 capsule (100 mg) by mouth 2 times daily. NALOXONE (NARCAN) 4 MG/0.1 ML NASAL SPRAY Administer 1 spray (4 mg) into affected nostril(s) as needed for opioid reversal. May repeat every 2-3 minutes if needed, alternating nostrils, until medical assistance becomes available. OMEPRAZOLE (PRILOSEC) [address] CAPSULE Take 1 capsule (40 mg) by mouth every morning (before breakfast). Do not crush or chew. PRAZOSIN (MINIPRESS) 5 MG CAPSULE Take 2 capsules (10 mg) by mouth Nightly. QUETIAPINE (SEROQUEL) 50 MG TABLET Take 3 tablets (150 mg) by mouth Nightly. SERTRALINE (ZOLOFT) 50 MG TABLET Take 3 tablets (150 mg) by mouth daily. ALLERGIES Nickel [employer] Zinc FAMILY HISTORY Family History Problem Relation Name Age of Onset Atrial fibrillation Sister Hyperlipidemia Mother Obesity Mother Asthma Mother Depression Mother Obesity Sister Depression Sister Arthritis Mother High Blood Pressure Maternal Grandmother Diabetes Mother Asthma Maternal Grandmother Substance Abuse Sister Diabetes Father Stroke Paternal Grandfather Arthritis Sister High Blood Pressure Mother Vision loss Maternal Grandmother Diabetes Maternal Grandmother Stroke Maternal Grandmother Arthritis Maternal Grandfather Arthritis Maternal Grandmother Cancer Maternal Grandfather Depression Maternal Grandmother Cancer Brother Diabetes Paternal Grandfather Stroke Paternal Grandmother Diabetes Maternal Grandfather Obesity Maternal Grandmother Depression Maternal Grandfather Arthritis Paternal Grandmother Vision loss Maternal Grandfather Depression Paternal Grandmother Arthritis Paternal Grandfather SOCIAL HISTORY Social History Socioeconomic History Marital status: Single Tobacco Use Smoking status: Every Day Current packs/day: 0.50 Average packs/day: 0.5 packs/day for 0.6 years (0.3 ttl pk-yrs) Types: Cigarettes Start date: 12/2023 Smokeless tobacco: Never Vaping Use Vaping status: Every Day Substances: THC Substance and Sexual Activity Alcohol use: Not Currently Comment: 10-15 shots of whiskey Drug use: Yes Types: Marijuana Comment: 08/10/24 denies other drug use; vapes marijuana uses methadone, also buys pain meds on the streets Social Drivers of Health Financial Resource Strain: Low Risk (02/17/2024) Overall Financial Resource Strain (CARDIA) Difficulty of Paying Living Expenses: Not very hard Food Insecurity: No Food Insecurity (02/17/2024) Hunger Vital Sign Worried About Running Out of Food in the Last Year: Never true Ran Out of Food in the Last Year: Never true Transportation Needs: Unmet Transportation Needs (04/21/2023) PRAPARE - Transportation Lack of Transportation (Medical): Yes Lack of Transportation (Non-Medical): Yes Social Connections: Socially Isolated (02/17/2024) Social Connection and Isolation Panel [NHANES] Frequency of Communication with Friends and Family: More than three times a week Frequency of Social Gatherings with Friends and Family: More than three times a week Attends Confucianist Services: Never Active Member of Clubs or Organizations: No Attends Club or Organization Meetings: Never Marital Status: Never Intimate Partner Violence: Not At Risk (02/14/2024) Humiliation, Afraid, Rape, and Kick questionnaire Fear of Current or Ex-Partner: No Emotionally Abused: No Physically Abused: No Sexually Abused: No Housing Stability: Low Risk (02/17/2024) Housing Stability Vital Sign Unable to Pay for Housing in the Last Year: No Number of Times Moved in the Last Year: 0 Homeless in the Last Year: No PHYSICAL EXAM ED Triage Vitals Temp Heart Rate Resp BP 08/10/24 0953 08/10/24 0955 08/10/24 0953 08/10/24 0955 36.6 C (97.8 F) (!) 111 16 (!) 164/117 SpO2 Temp Source Heart Rate Source Patient Position 08/10/24 0953 08/10/24 0953 -- -- 98 % Oral BP Location FiO2 (%) -- -- Physical Exam No current significant swelling of the face, no rashes, normal posterior oropharynx, poor dentition but no signs of abscess, lungs are clear to auscultation bilaterally DIAGNOSTIC RESULTS RADIOLOGY (Per Emergency Physician): Interpretation per the Radiologist below, if available at the time of this note: No orders to display LABS: Labs Reviewed - No data to display All other labs were within normal range or not returned as of this dictation. EMERGENCY DEPARTMENT COURSE and DIFFERENTIAL DIAGNOSIS/MDM: Vitals: Vitals: 08/10/24 0953 08/10/24 0955 BP: (!) 164/117 Pulse: (!) 111 Resp: 16 Temp: 36.6 C (97.8 F) TempSrc: Oral SpO2: 98% Weight: 74.8 kg (165 lb) Height: 1.778 m (5' 10) Medications dexAMETHasone (Decadron) injection 4 mg (has no administration in time range) diphenhydrAMINE (BENADryl) tablet/capsule 25 mg (has no administration in time range) SCREENINGS MDM elements: The patient presented with chief complaint of facial swelling that improved after ibuprofen, unclear cause for this, he has no difficulty breathing no itching and no pain, was given IM Decadron and oral Benadryl, patient aware that he should return immediately if he has any change in symptoms or worsening symptoms and voiced understanding. The differential diagnosis associated with this patient's presentation includes allergic versus inflammatory swelling of the face. Our workup consisted of ordering/reviewing: No need for imaging or labs, was given IM Decadron and oral Benadryl. The patient will be Discharged. Patient is in agreement with this plan. PROCEDURES: Unless otherwise noted below, none Procedures CRITICAL CARE TIME None FINAL IMPRESSION 1. Facial swelling DISPOSITION Discharge 08/10/2024 10:15:49 AM PATIENT REFERRED TO: [address] [id number] As needed DISCHARGE MEDICATIONS: New Prescriptions No medications on file (Comment: Please note this report has been produced using speech recognition software and may contain errors related to that system including errors in grammar, punctuation, and spelling, as well as words and phrases that may be inappropriate. If there are any questions or concerns please feel free to contact the dictating provider for clarification.) Ramesh Grimaldo MD (electronically signed) Emergency Medicine Provider Ramesh Grimaldo MD 08/10/24 1023 documented in this encounter [facility] [place] 08-10-2024 Physician Emergency department Note EMERGENCY DEPARTMENT ENCOUNTER Pt Name: El Smith Birthdate 1980 Date of evaluation: 08/10/2024 ED Provider: Ramesh Grimaldo MD CHIEF COMPLAINT Chief Complaint Patient presents with Facial Swelling HISTORY OF PRESENT ILLNESS (Location/Symptom, Timing/Onset, Context/Setting, Quality, Duration, Modifying Factors, Severity) Note limiting factors. I wore appropriate PPE for the entirety of this encounter. HPI El Smith is a 43 y.o. who presents to the emergency department with facial swelling, no trauma, no pain, its improved after he took Motrin this morning Nursing Notes were reviewed. Limitations to history: None Outside historians: Family REVIEW OF SYSTEMS Review of Systems Pertinent positives and negatives as per HPI 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 Drug abuse (HCC) Gastroenteritis 11/23/2018 Last Assessment & Plan: Predominantly vomiting; ?food poisoning vs viral gastroenteritis IV hydration PRN antiemetics Hyperlipidemia Hypertension Iritis of left eye 09/20/2018 [facility]) Opioid dependence, uncomplicated (HCC) 10/27/2021 Presence of stent in right coronary artery 10/02/2021 Sciatica Spinal stenosis, lumbar Tobacco abuse SURGICAL HISTORY Past Surgical History: Procedure Laterality Date ARM SURGERY (HISTORICAL) metal rods in adam upper extremities BACK SURGERY COLONOSCOPY CORONARY ANGIOPLASTY WITH STENT PLACEMENT 09/23/2021 DORIS to proximal RCA FRACTURE SURGERY CURRENT MEDICATIONS Previous Medications ACAMPROSATE (CAMPRAL) 333 MG EC TABLET Take 2 tablets (666 mg) by mouth 3 times daily. Do not crush, chew, or split. ACETAMINOPHEN (TYLENOL EXTRA STRENGTH) 500 MG TABLET Take 2 tablets (1,000 mg) by mouth every 8 hours as needed for mild pain (1-3), moderate pain (4-6) or headaches. BUPRENORPHINE-NALOXONE (SUBOXONE) 8-2 MG PER SUBLINGUAL FILM Place 1 Film under the tongue 3 times daily for 28 days. BUSPIRONE (BUSPAR) 15 MG TABLET Take 1 tablet (15 mg) by mouth every 8 hours. CLONAZEPAM (KLONOPIN) 0.25 MG DISINTEGRATING TABLET Take 1 tablet (0.25 mg) by mouth 3 times daily as needed for anxiety for up to 28 days. DOCUSATE SODIUM (DSS) 100 MG CAPSULE Take 1 capsule (100 mg) by mouth 2 times daily. NALOXONE (NARCAN) 4 MG/0.1 ML NASAL SPRAY Administer 1 spray (4 mg) into affected nostril(s) as needed for opioid reversal. May repeat every 2-3 minutes if needed, alternating nostrils, until medical assistance becomes available. OMEPRAZOLE (PRILOSEC) [address] CAPSULE Take 1 capsule (40 mg) by mouth every morning (before breakfast). Do not crush or chew. PRAZOSIN (MINIPRESS) 5 MG CAPSULE Take 2 capsules (10 mg) by mouth Nightly. QUETIAPINE (SEROQUEL) 50 MG TABLET Take 3 tablets (150 mg) by mouth Nightly. SERTRALINE (ZOLOFT) 50 MG TABLET Take 3 tablets (150 mg) by mouth daily. ALLERGIES [employer]el [employer] FAMILY HISTORY Family History Problem Relation Name Age of Onset Atrial fibrillation Sister Hyperlipidemia Mother Obesity Mother Asthma Mother Depression Mother Obesity Sister Depression Sister Arthritis Mother High Blood Pressure Maternal Grandmother Diabetes Mother Asthma Maternal Grandmother Substance Abuse Sister Diabetes Father Stroke Paternal Grandfather Arthritis Sister High Blood Pressure Mother Vision loss Maternal Grandmother Diabetes Maternal Grandmother Stroke Maternal Grandmother Arthritis Maternal Grandfather Arthritis Maternal Grandmother Cancer Maternal Grandfather Depression Maternal Grandmother Cancer Brother Diabetes Paternal Grandfather Stroke Paternal Grandmother Diabetes Maternal Grandfather Obesity Maternal Grandmother Depression Maternal Grandfather Arthritis Paternal Grandmother Vision loss Maternal Grandfather Depression Paternal Grandmother Arthritis Paternal Grandfather SOCIAL HISTORY Social History Socioeconomic History Marital status: Single Tobacco Use Smoking status: Every Day Current packs/day: 0.50 Average packs/day: 0.5 packs/day for 0.6 years (0.3 ttl pk-yrs) Types: Cigarettes Start date: 12/2023 Smokeless tobacco: Never Vaping Use Vaping status: Every Day Substances: THC Substance and Sexual Activity Alcohol use: Not Currently Comment: 10-15 shots of whiskey Drug use: Yes Types: Marijuana Comment: 08/10/24 denies other drug use; vapes marijuana uses methadone, also buys pain meds on the streets Social Drivers of Health Financial Resource Strain: Low Risk (02/17/2024) Overall Financial Resource Strain (CARDIA) Difficulty of Paying Living Expenses: Not very hard Food Insecurity: No Food Insecurity (02/17/2024) Hunger Vital Sign Worried About Running Out of Food in the Last Year: Never true Ran Out of Food in the Last Year: Never true Transportation Needs: Unmet Transportation Needs (04/21/2023) PRAPARE - Transportation Lack of Transportation (Medical): Yes Lack of Transportation (Non-Medical): Yes Social Connections: Socially Isolated (02/17/2024) Social Connection and Isolation Panel [NHANES] Frequency of Communication with Friends and Family: More than three times a week Frequency of Social Gatherings with Friends and Family: More than three times a week Attends Confucianist Services: Never Active Member of Clubs or Organizations: No Attends Club or Organization Meetings: Never Marital Status: Never Intimate Partner Violence: Not At Risk (02/14/2024) Humiliation, Afraid, Rape, and Kick questionnaire Fear of Current or Ex-Partner: No Emotionally Abused: No Physically Abused: No Sexually Abused: No Housing Stability: Low Risk (02/17/2024) Housing Stability Vital Sign Unable to Pay for Housing in the Last Year: No Number of Times Moved in the Last Year: 0 Homeless in the Last Year: No PHYSICAL EXAM ED Triage Vitals Temp Heart Rate Resp BP 08/10/24 0953 08/10/24 0955 08/10/24 0953 08/10/24 09 36.6 C (97.8 F) (!) 111 16 (!) 164/117 SpO2 Temp Source Heart Rate Source Patient Position 08/10/24 0953 08/10/24 09 -- -- 98 % Oral BP Location FiO2 (%) -- -- Physical Exam No current significant swelling of the face, no rashes, normal posterior oropharynx, poor dentition but no signs of abscess, lungs are clear to auscultation bilaterally DIAGNOSTIC RESULTS RADIOLOGY (Per Emergency Physician): Interpretation per the Radiologist below, if available at the time of this note: No orders to display LABS: Labs Reviewed - No data to display All other labs were within normal range or not returned as of this dictation. EMERGENCY DEPARTMENT COURSE and DIFFERENTIAL DIAGNOSIS/MDM: Vitals: Vitals: 08/10/24 0953 08/10/24 0955 BP: (!) 164/117 Pulse: (!) 111 Resp: 16 Temp: 36.6 C (97.8 F) TempSrc: Oral SpO2: 98% Weight: 74.8 kg (165 lb) Height: 1.778 m (5' 10) Medications dexAMETHasone (Decadron) injection 4 mg (has no administration in time range) diphenhydrAMINE (BENADryl) tablet/capsule 25 mg (has no administration in time range) SCREENINGS MDM elements: The patient presented with chief complaint of facial swelling that improved after ibuprofen, unclear cause for this, he has no difficulty breathing no itching and no pain, was given IM Decadron and oral Benadryl, patient aware that he should return immediately if he has any change in symptoms or worsening symptoms and voiced understanding. The differential diagnosis associated with this patient's presentation includes allergic versus inflammatory swelling of the face. Our workup consisted of ordering/reviewing: No need for imaging or labs, was given IM Decadron and oral Benadryl. The patient will be Discharged. Patient is in agreement with this plan. PROCEDURES: Unless otherwise noted below, none Procedures CRITICAL CARE TIME None FINAL IMPRESSION 1. Facial swelling DISPOSITION Discharge 08/10/2024 10:15:49 AM PATIENT REFERRED TO: [address] [id number] As needed DISCHARGE MEDICATIONS: New Prescriptions No medications on file (Comment: Please note this report has been produced using speech recognition software and may contain errors related to that system including errors in grammar, punctuation, and spelling, as well as words and phrases that may be inappropriate. If there are any questions or concerns please feel free to contact the dictating provider for clarification.) Ramesh Grimaldo MD (electronically signed) Emergency Medicine Provider Ramesh Grimaldo MD 08/10/24 1023 [facility] [place] 07-04-2024 History of Present illness Narrative Outpatient Behavioral Health Services Individual or Family Therapy Progress Note Program: Addiction Medicine Intensive Outpatient Program Session Date: 07/04/2024 Start Time: 1334 End Time: 1414 Session Participant(s): Patient and mother Summary of Session: Pt and his mother were present. Pt reports a reduction in anxiety and anger since he received his fathers inheritance. Pt does report frustration with being able to get some of his belongings. Pt paced the entire session. Enquired about the Pt's Marijuana use. Pt reports that he smokes 1/2 a gram daily for his anxiety. Educated the Pt on possible negative reactions to smoking Marijuana and the medications he is on. Suggested an experiment by reducing his Marijuana use to 1/4 gram a day to see if his anxiety increases. Mom responded that Marijuana was the only thing that helped his anxiety (Mom may be co-dependent, enabling) Pt reports that he will think about it. Discussed with the pt self regulation which he appears to have little. Pt reports that he can stay focused for up to an hour (if his anxiety is not high) on his art. Pt seems to display neurological deficit in self regulation and impulse control. Mom confirmed that it was also present in childhood. Anxiety response my be addiction related or possibly Autism Spectrum Disorder undiagnosed. Additional assessment may be beneficial to confirm or rule out. Therapeutic Intervention: Psychoeducation, Skills training, and Motivational Interviewing Patient's Response to Intervention: Pt reports that he will think about reducing his Marijuana use. Mental Status Exam: Appearance: Appropriately dressed and groomed and poor eye contact Mood: anxious Affect: flat Behavior: alert, impulsive, and guarded Speech: Appropriate Cognition: concentration problems and racing Thought Process: Racing Thought Content: No evidence of psychosis/delusional thought Progress Towards Goal(s): Minimal Additional Comments: n/a Next Step: Continue with current services Signature documented in this encounter [facility] [place] 07-04-2024 History of Present illness Narrative Images from the original note were not included. ADDICTION MEDICINE PROGRESS NOTE Patient: El Smith Problem List: Active Problems: There are no active Hospital Problems. SUBJECTIVE Seen and examined. Noticeable improvement since last visit. Still pacing room but less so. Seems less tense. Notes that one major concern was his inheritance which he was able to secure which has reduced a lot of anger and anxiety. Is taking medications exactly as you prescribe them. Notes no recent relapse, cravings, use thoughts or use dreams. Reports that overall he is doing a lot better. Chronic pain is controlled. Anxiety stable. Eating and drinking like a normal person. Feels way less on edge. No other concerns. No SI/HI or AVH. Is in 1:1 counseling. Review of Systems A 14 system ROS was collected and is negative unless otherwise noted above. OBJECTIVE Physical Exam Constitutional: Appearance: Normal appearance. He is not ill-appearing or diaphoretic. HENT: Head: Normocephalic and atraumatic. Nose: Nose normal. Mouth/Throat: Mouth: Mucous membranes are dry. Eyes: Extraocular Movements: Extraocular movements intact. Pupils: Pupils are equal, round, and reactive to light. Cardiovascular: Rate and Rhythm: Normal rate and regular rhythm. Pulmonary: Effort: Pulmonary effort is normal. No respiratory distress. Abdominal: General: There is no distension. Palpations: Abdomen is soft. Musculoskeletal: General: No deformity. Normal range of motion. Cervical back: Normal range of motion and neck supple. Skin: General: Skin is dry. Coloration: Skin is not jaundiced. Findings: No bruising. Neurological: General: No focal deficit present. Mental Status: He is alert and oriented to person, place, and time. Cranial Nerves: No cranial nerve deficit. Psychiatric: Attention and Perception: He does not perceive auditory or visual hallucinations. Mood and Affect: Mood normal. Speech: Speech normal. Behavior: Behavior is cooperative. Thought Content: Thought content is not paranoid or delusional. Thought content does not include homicidal or suicidal ideation. Thought content does not include homicidal or suicidal plan. Judgment: Judgment is impulsive. Medications Home Meds Current Outpatient Medications Medication Instructions acamprosate (CAMPRAL) 666 mg, Oral, 3 times daily, Do not crush, chew, or split. acetaminophen (TYLENOL EXTRA STRENGTH) 1,000 mg, Oral, Every 8 hours PRN [START ON 07/18/2024] buprenorphine-naloxone (Suboxone) 8-2 MG per sublingual film 1 Film, SubLINGual, 3 times daily busPIRone (BUSPAR) 15 mg, Oral, Every 8 hours clonazePAM (KLONOPIN) 0.25 mg, Oral, 3 times daily PRN DSS 100 mg, Oral, 2 times daily naloxone (NARCAN) 4 mg, Nasal, PRN, May repeat every 2-3 minutes if needed, alternating nostrils, until medical assistance becomes available. omeprazole (PRILOSEC) 40 mg, Oral, Daily before breakfast, Do not crush or chew. prazosin (MINIPRESS) 10 mg, Oral, Nightly QUEtiapine (SEROQUEL) 150 mg, Oral, Nightly sertraline (ZOLOFT) 150 mg, Oral, Daily Recent Imaging No results found. Labs No results found for this or any previous visit (from the past 24 hours). ASSESSMENT & PLAN Severe opioid use disorder, dependence, on MAT Severe alcohol use disorder, dependence on MAT Stimulant use disorder, in remission on MAT Cannabis use disorder - active use but decreasing Tobacco use disorder - improving, less than 1/4 PPD from 3 packs Formerly on Methadone (125mg daily at max) through [facility] (last Apr 2023) Relapsed and admitted into [facility] (05/27/24). Patient actively reducing THC use. Patient actively reducing EDA use - down to less than 5 cigs per day. I spent 8 minutes counseling the patient on tobacco use and its negative effects. Follow up plans for addiction management discussed with patient: Continue SUBOXONE 8mg SL TID No cravings, use thoughts or use dreams. No relapses since starting suboxone. Taking it as 4mg every 2-3 hours Stable Continue Campral 666mg PO TID for alcohol MAT in addition to suboxone. Pt is compliant with Campral 666mg PO TID dosing. No ETOH use since last visit. Denies cravings, use thoughts or use dreams. Stable. Tobacco cessation Smoking less than 4-5 cigarettes per day Goal is total cessation Notes he will try to be total done by next visit. Severe LEEANNE MDD, Moderate, Recurrent Complex PTSD Insomnia Hx of SI w/o SA 2/2 chronic pain Lengthy mental health history No SI/HI or AVH Lengthy discussion surrounding Klonopin use, random UDS and any abuse will result in immediate cessation of medication. Denies over use of Klonopin - notes he takes 2 daily and more than 50% of the time takes a 3rd at night. PLAN: Buspar to 15mg PO Q8H Seroquel 50mg PO at bedtime scheduled Prazosin 10mg PO at bedtime Zoloft 150mg PO Daily Klonopin 0.25mg PO TID PRN for anxiety Multiple L spine disk bulges Lumbar spinal stenosis Chronic b/l sciatica Multiple facial fractures - bilateral Humeral head fracture - RIGHT Thumb fracture - RIGHT Utilize suboxone for both OUD and chronic pain. Not a surgical candidate per ortho No longer followed by ortho. Hx PUD with GIB 2/2 NSAID abuse Hx Gastritis Hx of GERD Pt reports no GERD symptoms. Notes that when he has reflux he uses TUMS He is taking omeprazole 40mg PO Daily Not taking NSAID daily for last 3-4 weeks, maybe 2-3x weekly. HTN HLD Not on medication at this time. Needs family med follow up CAD S/P stent to the RCA Hx of VA? (Date unclear) No CP or SOB. Continuing to encourage cardiology follow up. Prolonged visit. Many health concerns to discuss each visit. Overall is improving. Notes that he is taking his medication faithfully and not misusing. Reports he feels significantly more calm and less easily irritated with PRN klonopin. Notes that he takes 2 per day every day and more than 50% of the time uses a 3rd dose at night. Reports that he is more relaxed and not pacing his house. He can sleep significantly better. Not as jumpy. No substance use outside of 4-5 cigarettes per day and smokes THC daily. No cravings, use dreams or use thoughts for ETOH or opioids. Reports appetite - stable. No other concerns. No SI/HI or AVH. Goal is tobacco cessation by next visit. I continue to encourage the patient to reduce his THC use due to the risk posed by continued substance use. Patient does have complex PTSD and reports that his medications and THC are very helpful. Patient is being seen by counselor on weekly basis. Will be seen by this provider Q28 days unless there are acute issues at which point I will see him sooner. Pt agreeable with this plan. A total of 60 minutes were spent reviewing the patient's records, evaluating the patient, entering orders, coordinating care with the treatment team, and creating this note. documented in this encounter [facility] [place] 05-30-2024 Telephone encounter Note Name of caller: Gloria Contact phone number: [phone] Relationship to Patient: patient Provider: Dr. Choudhary Practice: [facility] [place] [place] [facility] Chief Complaint/Reason for Call: Patient needs medication changed and was told that it was not corrected by someone he spoke with someone named Eliza, patient stated she reworded their discussion and dismissed his medication. I tried to get him to a Triage nurse, but he felt it's been too long since he had his medication. So he was going to the ER. Thank you. Best time of day caller can be reached: AM Patient advised that office/PCP has 24-48 business hours to return their call: Yes [facility] [place] 05-30-2024 Miscellaneous Notes Name of caller: Sofiakiaraconsuelo Contact phone number: [phone] Relationship to Patient: patient Provider: Dr. Choudhary Practice: [facility] [place] [place] [facility] Chief Complaint/Reason for Call: Patient needs medication changed and was told that it was not corrected by someone he spoke with someone named Eliza, patient stated she reworded their discussion and dismissed his medication. I tried to get him to a Triage nurse, but he felt it's been too long since he had his medication. So he was going to the ER. Thank you. Best time of day caller can be reached: AM Patient advised that office/PCP has 24-48 business hours to return their call: Yes documented in this encounter [facility] [place] 05-28-2024 Note [facility] 05-28-2024 Emergency department Note Patient signed AMA form, witnessed by this RN and Dr. Faria at bedside. [facility] [place] 05-28-2024 Emergency department Note Patient signed AMA form, witnessed by this RN and Dr. Faria at bedside. Pt taken to room 47 to change and then leave AMA Green slip discontinued by Dr. Faria. Dr. Faria at bedside. Pt leaving AMA. Patient now refusing detox Dr Faria aware and is at bedside now. Dr. Faria at bedside. Notified patient does not want detox. Patient refusing to sign detox rules. States he does not want detox, just wanted his heart to calm down. In for transport Patient respirations even and unlabored. No acute distress noted. Steady gait with ambulation. Pt up to bathroom Patient sitting up in bed, eating lunch. Visitor at bedside. Food tray delivered Report from DESIREE Zamora. Visitor in room with pt Physician in room with pt Tech Ching in room to replace tele leads Breakfast tray delivered to pt Ok to update his mother Ruth [phone]. Desiree Starkey in room Tech Ching in room to get labs on pt and replace tele monitor RN Lalito in room Report to Lalito RN Provider in room Mundo RN at bedside Kayleen RN at bedside for labs Green slip on paper chart. To room 55 from . Report received from off going nurse. From home hilucinations r/t non compliant with suboxone for four days c/o palpitations medical admit to detox opioids and etoh. Positive ciwa. Please see emar for ativan admin. Violent with staff hx. Drinks twenty shots per day. Seizure precautions. Monitored room. Close to nurse station. Tele provided. Tachy htn. Responding to verbal. Confused. Cadena to purposeful command. Maintains ra saturation. Wanding complete physical aerodynamicist. Belongings placed in locker. Pt has pads on the rail for seizure precautions. Bedside report given to Mundo INGRAM and Kayleen INGRAM. Pt placed on tele monitor in room 55 Pt brought from room 39 to room 55 via bed stretcher w/ DESIREE Pak and protective service. Pt transferred to bed 55 by Rns. Pt has 1 bag upon arrival to the unit. Protective service at bedside with this RN. Pt changed into 2 gowns. Skin assessment competed. Belongings secured. Pt wanded. Pt medicated with ativan for CIWA score. Pt green slipped - Yoanna primer charger nurse aware Dr Doherty at bedside to evaluate pt Pt up and was in doorway, ripped off tele monitor. This RN in room and had pt sit back in bed. Pt disoriented stating he was talking to his mom about clinical data manager. Pt re-oriented that his mom was not here and has not been here and that he was sleeping. Pt re-oriented he was in the emergency room and admitted for withdrawls. Pt states I just want to go home and take my medicine. Pt reassured he has been receiving his medicine and additional medications to aid him in withdrawal symptoms. Pt reports I'm fine I just have withdrawls. Pt asking to speak to provider. This RN messaged Dr Doherty who is cotton program technician for provider Pt settled back into bed, pt found to be talking in his sleep trying to get up. Tele leads fixed again. Report to DESIREE Pak Report to DESIREE Luevano Lab called with potassium 2.6, same reported to Dr. Nair and Dr. Humphrey via secure chat Emergency Department Encounter EMERGENCY DEPARTMENT Patient: El Smith : 1980 Date of Evaluation: 05/27/2024 ED Supervising Physician: Marquise Nair MD I independently examined and evaluated El Smith. This will serve as my Supervisory note and shared attestation. I did perform a substantive portion of the visit including all aspects of the Medical Decision Making. I wore appropriate PPE for the entirety of this encounter. In brief, El Smith is a 43 y.o. that presents to the emergency department with shaking, tremors, tachycardia, palpitations Patient has a history of opioid abuse, alcohol abuse, heart attack, smokes cigarettes, family history of atrial fibrillation no personal history of dysrhythmia. He denies any chest pain he denies any shortness of breath. He is not tachypneic he is not hypoxic he is not febrile. He says that he stopped all of his medications about 1 week ago because he did not want to take any medications and now he feels miserable. In particular he stopped his Suboxone 4 days ago. He has yawning, muscle cramps, vague nausea with no abdominal pain, dilated pupils, visibly trembling and shaking [id number] in the bed to the point that the bed rock sideways during the interview. Patient also endorses drinking 20 shots per day and last shot was 11 hours ago, he is tachycardic and shaky but denies any seizures. Denies any visual hallucinations. He may be in opioid withdrawal and alcohol withdrawal simultaneously Patient has no chest pain he has no shortness of breath he had vague nausea earlier this morning but not right now. No vomiting no diarrhea. Endorses muscle cramping but denies any abdominal pain per se. Says he is clean from all illicit drugs including marijuana. Denies any chest pain denies any syncope or presyncope, denies any focal numbness or focal weakness in the arms or legs. Feels very dry, COWS score is 15. Unable to sit still, constantly jerking [id number] in bed, very nervous and anxious. ED Triage Vitals Temp Heart Rate Resp BP 05/27/24 0858 05/27/24 0901 05/27/24 0901 05/27/24 09 36.8 C (98.2 F) (!) 126 14 (!) 146/111 SpO2 Temp Source Heart Rate Source Patient Position 05/27/24 0901 05/27/24 0858 05/27/24 0920 05/27/24 09 99 % Oral Monitor Lying BP Location FiO2 (%) -- -- Focused exam: General: Ill-appearing adult male lying supine in bed, twitching [id number], unable to sit still, heart rate in the 130s HENT: Head NCAT, EOMI with no erythema, swelling or discharge. Dilated pupils, reactive to light. Frequent sniffling during interview, clear rhinorrhea bilaterally Oropharyngeal mucus membranes extremely dry, cracks visible in the tongue, pink, no exudate. Poor dentition. No raccoon's eyes No Amaya sign Face is stable No CSF rhinorrhea or otorrhea No epistaxis Neck: Full ROM, supple, no rigidity Cardio: Tachycardia in the 130s, slightly hypertensive 146/111, nl s1 s2 no m/r/g, extremities warm, dry, well perfused, non-edematous, 2+ bilateral radial pulses, 2+ bilateral DP pulses Lungs: CTAB, no wheezes, rales, rhonchi, normal work of breathing, no cough no cyanosis no retractions. SaO2 99% on room air, posterior rate of 14 breaths/min, speaks in complete sentences, no respiratory distress whatsoever Abdomen: Soft, NT, ND, non-rigid, BS x 4 normal, no flank pain to palpation bilaterally, no CVA tenderness to palpation bilaterally Skin: Warm, dry, pink, no rashes, bruising, or lacerations, no petechiae, no purpura Neuro: Patient alert, oriented, able to answer questions and follow commands mine engineer II-XII normal Normal 5/5 strength and normal sensation in all four extremities DTRs are normal 2/4 and equal bilaterally Normal coordination in upper and lower extremities Gait not tested No dysarthria No aphasia No facial droop No pronator drift Negative test of skew bilaterally Shaking tremors, sometimes high amplitude, to the point that the bed itself rock [id number]. Patient does not have any seizures Psych: Nervous anxious, verbally consolable and redirectable up to a point. Denies suicidal or homicidal ideations. Denies auditory or visual hallucinations Brief ED course/MDM: 43-year-old male presents with palpitations shaking dehydration MDM elements: The patient presented with chief complaint of see above. The differential diagnosis associated with this patient's presentation includes concern for alcohol withdrawal given that it has been about 12 hours since he last drank alcohol and he is now tachycardic and tremulous. Needs CIWA protocol phenobarbital and Ativan to treat this. Will start patient on a banana bag as well given obvious dehydration. May also be in opioid withdrawal since he has a COWS score of 15 and has been off of his Suboxone for at least 4 days. He has also stopped taking all of his medications for the better part of a week, but I do not see any beta-blockers or calcium channel blockers that he is supposed to be on that would keep his heart rate under better control. We will get an EKG to look for dysrhythmia, we will get a chest x-ray in case of heart failure or pneumonia (patient has history of pneumonia in the past), we will check for COVID-19 RSV influenza, we will get a troponin in case of ACS as well although the patient has no chest pain and no shortness of breath. Anxiety attack is also possible but this would be diagnosis of exclusion. Our workup consisted of ordering/reviewing: CIWA protocol, oral phenobarbital, IV Ativan, IV fluids, patient's missing 8-2 Suboxone. Hospitalization likely given combination of opioid withdrawal and alcohol withdrawal. Diagnostic tests considered but not performed: I did consider the possibility of a pulmonary embolism given the tachycardia but the patient has good physiologic reasons to be tachycardic given combination of opioid and alcohol withdrawal, he has no chest pain no shortness of breath, he is not tachypneic he is not hypoxic, right now the radiation risks and contrast dye nephropathy risks of a CTA chest likely outweigh diagnostic benefits To aid in management, I performed an independent interpretation of Xray(s) see below EKG; see my interpretation elsewhere in the chart Blood work, see below. I discussed their care with Admitting team . The patient will be Admitted. Patient is in agreement with this plan. Patient's care was impacted by history of VA. Patient's care was significantly impacted by social determinants of health including chronic alcoholism, history of opioid abuse but stopped his Suboxone. SCREENINGS EKG: I read and interpreted this EKG. My interpretation can be found in the [employer] EKG system. EKG shows sinus tachycardia, normal axis, normal MI QRS and prolonged QTC intervals, no STEMI, no SVT, no LVH. Signs of old inferior VA (old finding) COWS score = 15. See separate documentation in [employer]. Labs Reviewed SARS-COV-2, FLU A/B, AND RSV COMBO CBC WITH AUTO DIFFERENTIAL COMPREHENSIVE METABOLIC PANEL HIGH SENSITIVITY TROPONIN, SERIAL BASELINE LIPASE ETHANOL DRUGS OF ABUSE THYROID STIMULATING HORMONE FREE T4 CK MAGNESIUM XR chest 1 view (Results Pending) Metabolic panel shows no metabolic acidosis, high anion gap which may be secondary to alcoholism, good kidney function, glucose normal limits at 104 Sodium normal at 140 Potassium low at 2.6. Replacing. Magnesium also low 1.1. Replacing. Aminotransferases unremarkable Alk phos mildly elevated CK negative at 69, argues against rhabdomyolysis HST #1 is 4 Normal white blood cell count Mild anemia Normal platelet count Alcohol 136 TSH normal Free T4 normal Respiratory panel shows COVID-19 negative RSV negative influenza negative Toxicology panel negative Tachycardia in the 130s is persisting but he remains in sinus tachycardia, not in a dysrhythmia. No visual hallucinations no seizures, no signs of DTs. Patient being medicated accordingly for alcohol withdrawal and opioid withdrawal simultaneously, also needs to have his low potassium and low magnesium replaced. Low magnesium may be consequence of the patient's chronic alcoholism (he says he drinks about 20 shots a day), etiology of low potassium is uncertain at this time Following replacement, repeat potassium improved up to 2.9 then 3.1. Repeat magnesium improved up to 1.4 then 1.7. No lactic acidosis Chest x-ray shows no acute cardiopulmonary disease identified. No pneumonia no pleural effusion no pneumothorax. Interpreted by radiology and by me. Patient is not septic. His only SIRS criteria is his tachycardia. There is no source of infection identified so far on today's workup. On reassessment, tremor is markedly better following phenobarbital and Ativan, though not 100% gone. Heart rate is improving, down to 110 bpm from the 130s. No seizures no visual hallucinations. No signs of DTs. Looks more comfortable but not good enough to go home in his current state. He requires hospitalization for combination alcohol withdrawal and opioid withdrawal and additional diagnostics and care in case of any additional underlying pathology Admitting resident service paged for admission AR team admitting patient Disposition: AR admit 1. Alcohol withdrawal syndrome without complication (HCC) 2. Opioid withdrawal (HCC) 3. Dehydration 4. Palpitations 5. Noncompliance with medication regimen 6. Hypokalemia 7. Hypomagnesemia 8. Coarse tremors All diagnostic, treatment, and disposition decisions were made by myself in conjunction with the Resident. I also supervised daniels portions of any procedures performed by the Resident. For all further details of the patient's emergency department visit, please see their documentation. (Comment: Please note this report has been produced using speech recognition software and may contain errors related to that system including errors in grammar, punctuation, and spelling, as well as words and phrases that may be inappropriate. If there are any questions or concerns please feel free to contact the dictating provider for clarification.) Marquise Nair MD [employer] Marquise Nair MD 05/27/24 [id number] EMERGENCY DEPARTMENT ENCOUNTER Pt Name: El Smith Birthdate 1980 Date of evaluation: 05/27/2024 ED Provider: Fransisco Humphrey MD CHIEF COMPLAINT Chief Complaint Patient presents with Rapid Heart Rate Pt states his heart has been racing since 4 am . Pt states that he has been off suboxon for 4 days. Pt denies chest pain . Pt has hx of VA. HISTORY OF PRESENT ILLNESS (Location/Symptom, Timing/Onset, Context/Setting, Quality, Duration, Modifying Factors, Severity) Note limiting factors. I wore appropriate PPE for the entirety of this encounter. HPI El Smith is a 43 y.o. male with PMH of opioid abuse, alcohol abuse, heart attack. He presents to the emergency department with chief complaint of shaking, tremors, tachycardia, palpitations Pt says that he stopped all of his medications about 1 week ago because he did not want to take any medications anymore. Of note, he stopped his Suboxone 4 days ago. Patient also endorses drinking 20 shots per day and says his last shot was 11 hours ago, he denies any seizures or hallucinations. Unable to sit still, constantly jerking [id number] in bed, very nervous and anxious. Patient denies chest pain, shortness of breath, nausea, vomiting, diarrhea. Denies and and all illicit drugs including marijuana. Nursing Notes were reviewed. Limitations to history: None Outside historians: None REVIEW OF SYSTEMS Review of Systems Pertinent positives and negatives as per HPI. 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 Drug abuse ([facility]) ([facility]) Gastroenteritis 11/23/2018 Last Assessment & Plan: Predominantly vomiting; ?food poisoning vs viral gastroenteritis IV hydration PRN antiemetics Hyperlipidemia Hypertension Iritis of left eye 09/20/2018 VA (myocardial infarction) ([facility]) Opioid dependence, uncomplicated ([facility]) 10/27/2021 Presence of stent in right coronary artery 10/02/2021 Sciatica Spinal stenosis, lumbar Tobacco abuse SURGICAL HISTORY Past Surgical History: Procedure Laterality Date ARM SURGERY (HISTORICAL) metal rods in adam upper extremities BACK SURGERY COLONOSCOPY CORONARY ANGIOPLASTY WITH STENT PLACEMENT 09/23/2021 DORIS to proximal RCA FRACTURE SURGERY CURRENT MEDICATIONS Previous Medications ACAMPROSATE (CAMPRAL) 333 MG EC TABLET Take 2 tablets (666 mg) by mouth 3 times daily. Do not crush, chew, or split. ACETAMINOPHEN (TYLENOL EXTRA STRENGTH) 500 MG TABLET Take 2 tablets (1,000 mg) by mouth every 8 hours as needed for mild pain (1-3), moderate pain (4-6) or headaches. BUPRENORPHINE-NALOXONE (SUBOXONE) 8-2 MG PER SUBLINGUAL FILM Place 1 Film under the tongue 3 times daily for 28 days. BUSPIRONE (BUSPAR) 15 MG TABLET Take 1 tablet (15 mg) by mouth every 8 hours. DOCUSATE SODIUM (DSS) 100 MG CAPSULE Take 1 capsule (100 mg) by mouth 2 times daily. FOLIC ACID (FOLVITE) 1 MG TABLET Take 1 tablet (1 mg) by mouth daily. MULTIPLE VITAMIN (MULTIVITAMIN) CAPSULE Take 1 capsule by mouth daily. NALOXONE (NARCAN) 4 MG/0.1 ML NASAL SPRAY Administer 1 spray (4 mg) into affected nostril(s) as needed for opioid reversal. May repeat every 2-3 minutes if needed, alternating nostrils, until medical assistance becomes available. OMEPRAZOLE (PRILOSEC) [address] CAPSULE Take 1 capsule (40 mg) by mouth every morning (before breakfast). Do not crush or chew. PRAZOSIN (MINIPRESS) 5 MG CAPSULE Take 2 capsules (10 mg) by mouth Nightly. QUETIAPINE (SEROQUEL) 50 MG TABLET Take 2 tablets (100 mg) by mouth Nightly. SERTRALINE (ZOLOFT) 50 MG TABLET Take 3 tablets (150 mg) by mouth daily. ALLERGIES [employer] FAMILY HISTORY Family History Problem Relation Name Age of Onset Atrial fibrillation Sister Hyperlipidemia Mother Obesity Mother Asthma Mother Depression Mother Obesity Sister Depression Sister Arthritis Mother High Blood Pressure Maternal Grandmother Diabetes Mother Asthma Maternal Grandmother Substance Abuse Sister Diabetes Father Stroke Paternal Grandfather Arthritis Sister High Blood Pressure Mother Vision loss Maternal Grandmother Diabetes Maternal Grandmother Stroke Maternal Grandmother Arthritis Maternal Grandfather Arthritis Maternal Grandmother Cancer Maternal Grandfather Depression Maternal Grandmother Cancer Brother Diabetes Paternal Grandfather Stroke Paternal Grandmother Diabetes Maternal Grandfather Obesity Maternal Grandmother Depression Maternal Grandfather Arthritis Paternal Grandmother Vision loss Maternal Grandfather Depression Paternal Grandmother Arthritis Paternal Grandfather SOCIAL HISTORY Social History Socioeconomic History Marital status: Single Tobacco Use Smoking status: Every Day Current packs/day: 0.50 Average packs/day: 0.5 packs/day for 0.4 years (0.2 ttl pk-yrs) Types: Cigarettes Start date: 12/2023 Smokeless tobacco: Never Vaping Use Vaping status: Every Day Substances: THC Substance and Sexual Activity Alcohol use: Yes Comment: 10-15 shots of whiskey Drug use: Yes Types: Marijuana Comment: uses methadone, also buys pain meds on the streets Social Drivers of Health Financial Resource Strain: Low Risk (02/17/2024) Overall Financial Resource Strain (CARDIA) Difficulty of Paying Living Expenses: Not very hard Food Insecurity: No Food Insecurity (02/17/2024) Hunger Vital Sign Worried About Running Out of Food in the Last Year: Never true Ran Out of Food in the Last Year: Never true Transportation Needs: Unmet Transportation Needs (04/21/2023) PRAPARE - Transportation Lack of Transportation (Medical): Yes Lack of Transportation (Non-Medical): Yes Social Connections: Socially Isolated (02/17/2024) Social Connection and Isolation Panel [NHANES] Frequency of Communication with Friends and Family: More than three times a week Frequency of Social Gatherings with Friends and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 Multiple Vitamin (multivitamin) capsule Take 1 capsule by mouth daily. 02/13/24 02/12/25 Zoila Torres MD naloxone (Narcan) 4 mg/0.1 mL nasal spray Administer 1 spray (4 mg) into affected nostril(s) as needed for opioid reversal. May repeat every 2-3 minutes if needed, alternating nostrils, until medical assistance becomes available. 03/20/24 03/20/25 Catalino Choudhary MD omeprazole (PriLOSEC) [address] capsule Take 1 capsule (40 mg) by mouth every morning (before breakfast). Do not crush or chew. 05/09/24 06/08/24 Catalino Choudhary MD prazosin (Minipress) 5 MG capsule Take 2 capsules (10 mg) by mouth Nightly. 05/09/24 06/08/24 Catalino Choudhary MD QUEtiapine (SEROquel) 50 MG tablet Take 2 tablets (100 mg) by mouth Nightly. 05/09/24 06/08/24 Catalino Choudhary MD sertraline (Zoloft) 50 MG tablet Take 3 tablets (150 mg) by mouth daily. 05/09/24 06/08/24 Catalino Choudhary MD Objective: Vitals: 05/27/24 0858 05/27/24 0901 05/27/24 0920 05/27/24 1048 BP: (!) 146/111 (!) 148/101 Pulse: (!) 126 (!) 132 (!) 127 Resp: 14 16 Temp: 36.8 C (98.2 F) 36.8 C (98.3 F) TempSrc: Oral Oral SpO2: 99% 94% Weight: 165 lb (74.8 kg) Height: 5' 10 (1.778 m) Physical Exam Constitutional: Appearance: He is ill-appearing. HENT: Head: Normocephalic and atraumatic. Mouth/Throat: Mouth: Mucous membranes are moist. Cardiovascular: Rate and Rhythm: Tachycardia present. Pulmonary: Effort: Pulmonary effort is normal. Breath sounds: Normal breath sounds. Abdominal: Palpations: Abdomen is soft. Tenderness: There is no abdominal tenderness. Neurological: Mental Status: He is alert. Select Recent Labs BMP: Recent Labs 05/27/24 0936 NA 140 K 2.6* CL 99 CO2 22 BUN 13 CREATININE 0.62* CALCIUM 8.5 MG 1.1* LFTs: Recent Labs 05/27/24 0936 AST 33 ALT 14 PROT 7.0 ALBUMIN 3.6 BILITOT 0.9 ALKPHOS 169* LIPASE 19 Glucose: Recent Labs 05/27/24 0936 GLUCOSE 104* Procal: No results for input(s): PROCAL in the last 72 hours. CBC: Recent Labs 05/27/24 0936 WBC 6.5 HGB 12.0* HCT 35.8* PLT 188 MCV 77.5 RDW 18.0* ABGs: No results for input(s): PHART, HNG7ZDB, PO2ART, KNS2HUH, SO2ART, R3EAATKK in the last 72 hours. Lactic Acid: No results for input(s): LACTATE in the last 72 hours. INR: No results for input(s): INR in the last 72 hours. Cardiac Injury Profile: Recent Labs 05/27/24 0936 CKTOTAL 69 TROPHSBASE 4 Labs in Last 3 months: Lab Results Component Value Date TSH 0.47 05/27/2024 INR 1.0 03/05/2024 Assessment and Plan: Patient is a 43-year-old male presenting with the chief complaint of acute withdrawals from opioids, alcohol, currently being seen by addiction medicine known to their service. Active Problems: There are no active Hospital Problems. Opioid withdrawal Alcohol Withdrawal -Plan for CIWA protocol with Ativan -Phenobarbital 97.2 every 4 hours- -thiamine 100 mg daily -Folic acid 1 mg daily -Patient previously being treated by addiction medicine team, plan to consult addiction medicine for additional recommendations on Suboxone and other care. - Goals of Care: FULL CODE - DVT Prophylaxis: SCD's or Sequential Compression Device - GI Prophylaxis: Protonix daily - Diet: General - BMI Classification: Body mass index is 23.68 kg/m . Normal (BMI 18.5-24.9) - Disposition: Admit to F. - Given the signs and symptoms associated with his primary diagnosis in the setting of his comorbid conditions, he is expected to require >48 hrs of hospital care (i.e. inpatient level care). Cosigned by Salina Peters DO at 05/28/2024 6:26 PM EST Associated attestation - Salina Peters DO - 05/28/2024 6:26 PM EST I saw and evaluated the patient. I agree with the findings and plan of care as documented in the resident's note, except as noted in Green text. Patient seen and examined personally during bedside teaching rounds (Date of Service: 05/28/24) -I personally saw and evaluated this morning. Asking when he could leave and reporting to me did not want detox. Too sleepy at that time to safely make decisions. -resident team re-evaluated him this afternoon. Does not desire detox. Maintained wakefulness. Demonstrated capacity and understood risk of leaving. Discharge. 7AM-5PM: contact resident on [facility] (find by hovering over attending's name on left side of patient's chart) 5PM-7AM: contact AI2 res [facility] [place] 05-27-2024 Note [facility] [place] [facility] 05-27-2024 History and physical note Internal Medicine: Med Team Initial History and Physical El Smith : 1980(43 y.o.) Date: May 27, 2024 TEAM: Danna Attending: Dr. Peters Subjective: Chief Complaint: Opioid withdraw/Alcohol withdrawal HPI El Smith is a 43 y.o. male with PMH opioid abuse, alcohol abuse that presented to [facility] on 05/27/2024 from home He presents to the emergency department with chief complaint of shaking, tremors, tachycardia, palpitations Pt says that he stopped all of his medications about 1 week ago because he did not want to take any medications anymore. Of note, he stopped his Suboxone 4 days ago. Patient also endorses drinking 20 shots per day and says his last shot was 15 hours ago (10pm 05/26) he denies any seizures or hallucinations. Unable to sit still, constantly jerking [id number] in bed, very nervous and anxious. Previously on Suboxone, 4 days ago, 2 films daily.Ethanol in ED 136, EXG, sinus tach, CXR negative. Upon initial evaluation of patient in the emergency room patient states his symptoms started around 4 AM today, while patient was outside of a liquor store waiting for them to open. Patient states he drinks 99 bananas liquor, consuming roughly 20 shots per day. Last drink was 05/26 at 10 PM. States he stopped taking all of his medications roughly 1 week ago. States he has been cutting back on his smoking, down from 2 packs/day to less than 1 pack/day currently. States he last ate 4-5 days ago. [facility] Currently patient feels nervous, twitchy Review of Systems Cardiovascular: Positive for chest pain (ACS ruled out) and palpitations. Psychiatric/Behavioral: The patient is nervous/anxious. 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 Drug abuse ([facility]) ([facility]) Gastroenteritis 11/23/2018 Last Assessment & Plan: Predominantly vomiting; ?food poisoning vs viral gastroenteritis IV hydration PRN antiemetics Hyperlipidemia Hypertension Iritis of left eye 09/20/2018 [facility] ([facility]) Opioid dependence, uncomplicated ([facility]) 10/27/2021 Presence of stent in right coronary artery 10/02/2021 Sciatica Spinal stenosis, lumbar Tobacco abuse Past Surgical History: Procedure Laterality Date ARM SURGERY (HISTORICAL) metal rods in adam upper extremities BACK SURGERY COLONOSCOPY CORONARY ANGIOPLASTY WITH STENT PLACEMENT 09/23/2021 DORIS to proximal RCA FRACTURE SURGERY Family History Problem Relation Name Age of Onset Atrial fibrillation Sister Hyperlipidemia Mother Obesity Mother Asthma Mother Depression Mother Obesity Sister Depression Sister Arthritis Mother High Blood Pressure Maternal Grandmother Diabetes Mother Asthma Maternal Grandmother Substance Abuse Sister Diabetes Father Stroke Paternal Grandfather Arthritis Sister High Blood Pressure Mother Vision loss Maternal Grandmother Diabetes Maternal Grandmother Stroke Maternal Grandmother Arthritis Maternal Grandfather Arthritis Maternal Grandmother Cancer Maternal Grandfather Depression Maternal Grandmother Cancer Brother Diabetes Paternal Grandfather Stroke Paternal Grandmother Diabetes Maternal Grandfather Obesity Maternal Grandmother Depression Maternal Grandfather Arthritis Paternal Grandmother Vision loss Maternal Grandfather Depression Paternal Grandmother Arthritis Paternal Grandfather Social History Tobacco Use Smoking Status Every Day Current packs/day: 0.50 Average packs/day: 0.5 packs/day for 0.4 years (0.2 ttl pk-yrs) Types: Cigarettes Start date: 12/2023 Smokeless Tobacco Never Social History Substance and Sexual Activity Alcohol Use Yes Comment: 10-15 shots of whiskey Social History Substance and Sexual Activity Drug Use Yes Types: Marijuana Comment: uses methadone, also buys pain meds on the streets Allergies Allergen Reactions Nickel Rash Zinc Rash Prior to Admission medications Medication Sig Start Date End Date Taking? Authorizing Provider acamprosate (Campral) 333 MG EC tablet Take 2 tablets (666 mg) by mouth 3 times daily. Do not crush, chew, or split. 05/09/24 06/08/24 Catalino Choudhary MD acetaminophen (Tylenol Extra Strength) 500 MG tablet Take 2 tablets (1,000 mg) by mouth every 8 hours as needed for mild pain (1-3), moderate pain (4-6) or headaches. 05/09/24 06/08/24 Catalino Choudhary MD buprenorphine-naloxone (Suboxone) 8-2 MG per sublingual film Place 1 Film under the tongue 3 times daily for 28 days. 05/09/24 06/06/24 Catalino Choudhary MD busPIRone (Buspar) 15 MG tablet Take 1 tablet (15 mg) by mouth every 8 hours. 05/09/24 06/08/24 Catalino Choudhary MD Docusate Sodium (DSS) 100 MG capsule Take 1 capsule (100 mg) by mouth 2 times daily. 05/09/24 06/08/24 Catalino Choudhary MD folic acid (Folvite) 1 MG tablet Take 1 tablet (1 mg) by mouth daily. 03/07/24 03/07/25 Nieves Reyes, MORTGAGE SPECIALIST - SWITCHBOARD CLERK Multiple Vitamin (multivitamin) capsule Take 1 capsule by mouth daily. 02/13/24 02/12/25 Zoila Torres MD naloxone (Narcan) 4 mg/0.1 mL nasal spray Administer 1 spray (4 mg) into affected nostril(s) as needed for opioid reversal. May repeat every 2-3 minutes if needed, alternating nostrils, until medical assistance becomes available. 03/20/24 03/20/25 Catalino Choudhary MD omeprazole (PriLOSEC) [address] capsule Take 1 capsule (40 mg) by mouth every morning (before breakfast). Do not crush or chew. 05/09/24 06/08/24 Catalino Choudhary MD prazosin (Minipress) 5 MG capsule Take 2 capsules (10 mg) by mouth Nightly. 05/09/24 06/08/24 Catalino Choudhary MD QUEtiapine (SEROquel) 50 MG tablet Take 2 tablets (100 mg) by mouth Nightly. 05/09/24 06/08/24 Catalino Choudhary MD sertraline (Zoloft) 50 MG tablet Take 3 tablets (150 mg) by mouth daily. 05/09/24 06/08/24 Catalino Choudhary MD Objective: Vitals: 05/27/24 0858 05/27/24 0901 05/27/24 0920 05/27/24 1048 BP: (!) 146/111 (!) 148/101 Pulse: (!) 126 (!) 132 (!) 127 Resp: 14 16 Temp: 36.8 C (98.2 F) 36.8 C (98.3 F) TempSrc: Oral Oral SpO2: 99% 94% Weight: 165 lb (74.8 kg) Height: 5' 10 (1.778 m) Physical Exam Constitutional: Appearance: He is ill-appearing. HENT: Head: Normocephalic and atraumatic. Mouth/Throat: Mouth: Mucous membranes are moist. Cardiovascular: Rate and Rhythm: Tachycardia present. Pulmonary: Effort: Pulmonary effort is normal. Breath sounds: Normal breath sounds. Abdominal: Palpations: Abdomen is soft. Tenderness: There is no abdominal tenderness. Neurological: Mental Status: He is alert. Select Recent Labs BMP: Recent Labs 05/27/24 0936 NA 140 K 2.6* CL 99 CO2 22 BUN 13 CREATININE 0.62* CALCIUM 8.5 MG 1.1* LFTs: Recent Labs 05/27/24 0936 AST 33 ALT 14 PROT 7.0 ALBUMIN 3.6 BILITOT 0.9 ALKPHOS 169* LIPASE 19 Glucose: Recent Labs 05/27/24 0936 GLUCOSE 104* Procal: No results for input(s): PROCAL in the last 72 hours. CBC: Recent Labs 05/27/24 0936 WBC 6.5 HGB 12.0* HCT 35.8* PLT 188 MCV 77.5 RDW 18.0* ABGs: No results for input(s): PHART, WFB0MNI, PO2ART, TUH0VFV, SO2ART, I6TBFWOQ in the last 72 hours. Lactic Acid: No results for input(s): LACTATE in the last 72 hours. INR: No results for input(s): INR in the last 72 hours. Cardiac Injury Profile: Recent Labs 05/27/24 0936 CKTOTAL 69 TROPHSBASE 4 Labs in Last 3 months: Lab Results Component Value Date TSH 0.47 05/27/2024 INR 1.0 03/05/2024 Assessment and Plan: Patient is a 43-year-old male presenting with the chief complaint of acute withdrawals from opioids, alcohol, currently being seen by addiction medicine known to their service. Active Problems: There are no active Hospital Problems. Opioid withdrawal Alcohol Withdrawal -Plan for CIWA protocol with Ativan -Phenobarbital 97.2 every 4 hours- -thiamine 100 mg daily -Folic acid 1 mg daily -Patient previously being treated by addiction medicine team, plan to consult addiction medicine for additional recommendations on Suboxone and other care. - Goals of Care: FULL CODE - DVT Prophylaxis: SCD's or Sequential Compression Device - GI Prophylaxis: Protonix daily - Diet: General - BMI Classification: Body mass index is 23.68 kg/m . Normal (BMI 18.5-24.9) - Disposition: Admit to F. - Given the signs and symptoms associated with his primary diagnosis in the setting of his comorbid conditions, he is expected to require >48 hrs of hospital care (i.e. inpatient level care). Cosigned by Salina Peters DO at 05/28/2024 6:26 PM EST Associated attestation - Salina Peters DO - 05/28/2024 6:26 PM EST I saw and evaluated the patient. I agree with the findings and plan of care as documented in the resident's note, except as noted in Green text. Patient seen and examined personally during bedside teaching rounds (Date of Service: 05/28/24) -I personally saw and evaluated this morning. Asking when he could leave and reporting to me did not want detox. Too sleepy at that time to safely make decisions. -resident team re-evaluated him this afternoon. Does not desire detox. Maintained wakefulness. Demonstrated capacity and understood risk of leaving. Discharge. 7AM-5PM: contact resident on [facility] Med B (find by hovering over attending's name on left side of patient's chart) 5PM-7AM: contact AI2 res documented in this encounter [facility] [place] 05-27-2024 Emergency department Note Lab called with potassium 2.6, same reported to Dr. Nair and Dr. Humphrey via secure chat [facility] [place] 05-27-2024 Physician Emergency department Note Emergency Department Encounter EMERGENCY DEPARTMENT Patient: El Smith : 1980 Date of Evaluation: 05/27/2024 ED Supervising Physician: Marquise Nair MD I independently examined and evaluated El Smith. This will serve as my Supervisory note and shared attestation. I did perform a substantive portion of the visit including all aspects of the Medical Decision Making. I wore appropriate PPE for the entirety of this encounter. In brief, El Smith is a 43 y.o. that presents to the emergency department with shaking, tremors, tachycardia, palpitations Patient has a history of opioid abuse, alcohol abuse, heart attack, smokes cigarettes, family history of atrial fibrillation no personal history of dysrhythmia. He denies any chest pain he denies any shortness of breath. He is not tachypneic he is not hypoxic he is not febrile. He says that he stopped all of his medications about 1 week ago because he did not want to take any medications and now he feels miserable. In particular he stopped his Suboxone 4 days ago. He has yawning, muscle cramps, vague nausea with no abdominal pain, dilated pupils, visibly trembling and shaking dsay-de-gyed in the bed to the point that the bed rock sideways during the interview. Patient also endorses drinking 20 shots per day and last shot was 11 hours ago, he is tachycardic and shaky but denies any seizures. Denies any visual hallucinations. He may be in opioid withdrawal and alcohol withdrawal simultaneously Patient has no chest pain he has no shortness of breath he had vague nausea earlier this morning but not right now. No vomiting no diarrhea. Endorses muscle cramping but denies any abdominal pain per se. Says he is clean from all illicit drugs including marijuana. Denies any chest pain denies any syncope or presyncope, denies any focal numbness or focal weakness in the arms or legs. Feels very dry, COWS score is 15. Unable to sit still, constantly jerking tatz-ntx-bauue in bed, very nervous and anxious. ED Triage Vitals Temp Heart Rate Resp BP 05/27/24 0858 05/27/24 0901 05/27/24 0901 05/27/24900 36.8 C (98.2 F) (!) 126 14 (!) 146/111 SpO2 Temp Source Heart Rate Source Patient Position 05/27/24 0901 05/27/24 0858 05/27/24 0920 05/27/24919 99 % Oral Monitor Lying BP Location FiO2 (%) -- -- Focused exam: General: Ill-appearing adult male lying supine in bed, twitching [id number], unable to sit still, heart rate in the 130s HENT: Head NCAT, EOMI with no erythema, swelling or discharge. Dilated pupils, reactive to light. Frequent sniffling during interview, clear rhinorrhea bilaterally Oropharyngeal mucus membranes extremely dry, cracks visible in the tongue, pink, no exudate. Poor dentition. No raccoon's eyes No Amaya sign Face is stable No CSF rhinorrhea or otorrhea No epistaxis Neck: Full ROM, supple, no rigidity Cardio: Tachycardia in the 130s, slightly hypertensive 146/111, nl s1 s2 no m/r/g, extremities warm, dry, well perfused, non-edematous, 2+ bilateral radial pulses, 2+ bilateral DP pulses Lungs: CTAB, no wheezes, rales, rhonchi, normal work of breathing, no cough no cyanosis no retractions. 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 Patient does not have any seizures Psych: Nervous anxious, verbally consolable and redirectable up to a point. Denies suicidal or homicidal ideations. Denies auditory or visual hallucinations Brief ED course/MDM: 43-year-old male presents with palpitations shaking dehydration MDM elements: The patient presented with chief complaint of see above. The differential diagnosis associated with this patient's presentation includes concern for alcohol withdrawal given that it has been about 12 hours since he last drank alcohol and he is now tachycardic and tremulous. Needs CIWA protocol phenobarbital and Ativan to treat this. Will start patient on a banana bag as well given obvious dehydration. May also be in opioid withdrawal since he has a COWS score of 15 and has been off of his Suboxone for at least 4 days. He has also stopped taking all of his medications for the better part of a week, but I do not see any beta-blockers or calcium channel blockers that he is supposed to be on that would keep his heart rate under better control. We will get an EKG to look for dysrhythmia, we will get a chest x-ray in case of heart failure or pneumonia (patient has history of pneumonia in the past), we will check for COVID-19 RSV influenza, we will get a troponin in case of ACS as well although the patient has no chest pain and no shortness of breath. Anxiety attack is also possible but this would be diagnosis of exclusion. Our workup consisted of ordering/reviewing: CIWA protocol, oral phenobarbital, IV Ativan, IV fluids, patient's missing 8-2 Suboxone. Hospitalization likely given combination of opioid withdrawal and alcohol withdrawal. Diagnostic tests considered but not performed: I did consider the possibility of a pulmonary embolism given the tachycardia but the patient has good physiologic reasons to be tachycardic given combination of opioid and alcohol withdrawal, he has no chest pain no shortness of breath, he is not tachypneic he is not hypoxic, right now the radiation risks and contrast dye nephropathy risks of a CTA chest likely outweigh diagnostic benefits To aid in management, I performed an independent interpretation of Xray(s) see below EKG; see my interpretation elsewhere in the chart Blood work, see below. I discussed their care with Admitting team . The patient will be Admitted. Patient is in agreement with this plan. Patient's care was impacted by history of VA. Patient's care was significantly impacted by social determinants of health including chronic alcoholism, history of opioid abuse but stopped his Suboxone. SCREENINGS EKG: I read and interpreted this EKG. My interpretation can be found in the [employer] EKG system. EKG shows sinus tachycardia, normal axis, normal MI QRS and prolonged QTC intervals, no STEMI, no SVT, no LVH. Signs of old inferior VA (old finding) COWS score = 15. See separate documentation in [employer]. Labs Reviewed SARS-COV-2, FLU A/B, AND RSV COMBO CBC WITH AUTO DIFFERENTIAL COMPREHENSIVE METABOLIC PANEL HIGH SENSITIVITY TROPONIN, SERIAL BASELINE LIPASE ETHANOL DRUGS OF ABUSE THYROID STIMULATING HORMONE FREE T4 CK MAGNESIUM XR chest 1 view (Results Pending) Metabolic panel shows no metabolic acidosis, high anion gap which may be secondary to alcoholism, good kidney function, glucose normal limits at 104 Sodium normal at 140 Potassium low at 2.6. Replacing. Magnesium also low 1.1. Replacing. Aminotransferases unremarkable Alk phos mildly elevated CK negative at 69, argues against rhabdomyolysis HST #1 is 4 Normal white blood cell count Mild anemia Normal platelet count Alcohol 136 TSH normal Free T4 normal Respiratory panel shows COVID-19 negative RSV negative influenza negative Toxicology panel negative Tachycardia in the 130s is persisting but he remains in sinus tachycardia, not in a dysrhythmia. No visual hallucinations no seizures, no signs of DTs. Patient being medicated accordingly for alcohol withdrawal and opioid withdrawal simultaneously, also needs to have his low potassium and low magnesium replaced. Low magnesium may be consequence of the patient's chronic alcoholism (he says he drinks about 20 shots a day), etiology of low potassium is uncertain at this time Following replacement, repeat potassium improved up to 2.9 then 3.1. Repeat magnesium improved up to 1.4 then 1.7. No lactic acidosis Chest x-ray shows no acute cardiopulmonary disease identified. No pneumonia no pleural effusion no pneumothorax. Interpreted by radiology and by me. Patient is not septic. His only SIRS criteria is his tachycardia. There is no source of infection identified so far on today's workup. On reassessment, tremor is markedly better following phenobarbital and Ativan, though not 100% gone. Heart rate is improving, down to 110 bpm from the 130s. No seizures no visual hallucinations. No signs of DTs. Looks more comfortable but not good enough to go home in his current state. He requires hospitalization for combination alcohol withdrawal and opioid withdrawal and additional diagnostics and care in case of any additional underlying pathology Admitting resident service paged for admission AR team admitting patient Disposition: AR admit 1. Alcohol withdrawal syndrome without complication (HCC) 2. Opioid withdrawal (HCC) 3. Dehydration 4. Palpitations 5. Noncompliance with medication regimen 6. Hypokalemia 7. Hypomagnesemia 8. Coarse tremors All diagnostic, treatment, and disposition decisions were made by myself in conjunction with the Resident. I also supervised daniels portions of any procedures performed by the Resident. For all further details of the patient's emergency department visit, please see their documentation. (Comment: Please note this report has been produced using speech recognition software and may contain errors related to that system including errors in grammar, punctuation, and spelling, as well as words and phrases that may be inappropriate. If there are any questions or concerns please feel free to contact the dictating provider for clarification.) Marquise Nair MD [employer] Marquise Nair MD 05/27/24 [id number] [facility] 05-27-2024 Physician Emergency department Note EMERGENCY DEPARTMENT ENCOUNTER Pt Name: El Smith Birthdate 1980 Date of evaluation: 05/27/2024 ED Provider: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 [employer] FAMILY HISTORY Family History Problem Relation Name Age of Onset Atrial fibrillation Sister Hyperlipidemia Mother Obesity Mother Asthma Mother Depression Mother Obesity Sister Depression Sister Arthritis Mother High Blood Pressure Maternal Grandmother Diabetes Mother Asthma Maternal Grandmother Substance Abuse Sister Diabetes Father Stroke Paternal Grandfather Arthritis Sister High Blood Pressure Mother Vision loss Maternal Grandmother Diabetes Maternal Grandmother Stroke Maternal Grandmother Arthritis Maternal Grandfather Arthritis Maternal Grandmother Cancer Maternal Grandfather Depression Maternal Grandmother Cancer Brother Diabetes Paternal Grandfather Stroke Paternal Grandmother Diabetes Maternal Grandfather Obesity Maternal Grandmother Depression Maternal Grandfather Arthritis Paternal Grandmother Vision loss Maternal Grandfather Depression Paternal Grandmother Arthritis Paternal Grandfather SOCIAL HISTORY Social History Socioeconomic History Marital status: Single Tobacco Use Smoking status: Every Day Current packs/day: 1.00 Types: Cigarettes Smokeless tobacco: Never Vaping Use Vaping status: Every Day Substances: THC Substance and Sexual Activity Alcohol use: Yes Comment: 10-15 shots of whiskey Drug use: Yes Types: Marijuana Comment: uses methadone, also buys pain meds on the streets Social Drivers of Health Financial Resource Strain: Low Risk (01/16/2020) Received from [facility] Overall Financial Resource Strain (CARDIA) Difficulty of Paying Living Expenses: Not very hard Food Insecurity: No Food Insecurity (01/16/2020) Received from [facility] Hunger Vital Sign Worried About Running Out of Food in the Last Year: Never true Ran Out of Food in the Last Year: Never true Transportation Needs: Unmet Transportation Needs (04/21/2023) PRAPARE - Transportation Lack of Transportation (Medical): Yes Lack of Transportation (Non-Medical): Yes Intimate Partner Violence: Not At Risk (04/21/2023) Humiliation, Afraid, Rape, and Kick questionnaire Fear of Current or Ex-Partner: No Emotionally Abused: No Physically Abused: No Sexually Abused: No Housing Stability: High Risk (04/21/2023) Housing Stability Vital Sign Unable to Pay for Housing in the Last Year: Yes Number of Places Lived in the Last Year: 1 Unstable Housing in the Last Year: No PHYSICAL EXAM ED Triage Vitals [02/11/24 1237] Temp Heart Rate Resp BP 36.8 C (98.2 F) 92 16 (!) 147/100 SpO2 Temp Source Heart Rate Source Patient Position 94 % Oral -- -- BP Location FiO2 (%) -- -- General: Well-developed, well-nourished patient lying in bed who appears groggy. Head: Atraumatic, normocephalic. No signs of basilar skull fracture. Eyes: No trauma to the globes, no signs of rupture or hyphema. Right upper lid ecchymosis/hematomas noted. No periocular tenderness. No proptosis. EOM intact but right eye movement lags behind left with some movements. ENT: He is edentulous. Multiple abrasions. Approximately 3 cm chin laceration. No other facial injuries noted. Neck: No cervical midline tenderness. No stepoff, crepitus, ecchymosis or deformity. Back: No midline tendernes. No stepoff, crepitus, ecchymosis or deformity. Chest: Non-tender, no crepitus, ecchymosis or deformity. Heart: Borderline tachycardic and regular, estimated rate 90. Lungs: Clear to auscultation bilaterally. Normal respiratory pattern without conversational dyspnea or respiratory distress. Abdomen: Soft, non-tender, non-distended, no guarding or peritoneal signs. Pelvis: Stable, non-tender. Neurologic: Groggy but arousable, speech somewhat slurred secondary to alcohol. GCS 15. Pupils equal and reactive. Moves all extremities equally well. He is clinically intoxicated. No lateralizing signs. Skin: Warm and dry, no lacerations other than the chin laceration noted above. 2 abrasions on the left hand. Musculoskeletal: Extremities atraumatic x 4 other than abrasions. All long bones palpated, all joints put through passive range of motion without pain or crepitus. DIAGNOSTIC RESULTS/EMERGENCY DEPARTMENT COURSE and DIFFERENTIAL DIAGNOSIS/MDM: Vitals: Vitals: 02/11/24 1237 BP: (!) 147/100 Pulse: 92 Resp: 16 Temp: 36.8 C (98.2 F) TempSrc: Oral SpO2: 94% Weight: 72.6 kg (160 lb) Height: 1.778 m (5' 10) Medical Decision Making History obtained from patient, paramedics and nursing staff. Per review of computerized records, last tetanus was in February 2022. Diagnostic interpretations performed by me in the ED include CT of the brain and facial bones, nothing obvious on the facial CT, subtle SAH without midline shift on the head CT. Social determinants of health affecting the patient's diagnosis and disposition include has issues with alcohol use and opioid use. Management discussed with Dr. Henley on-call for trauma as well as regional Call Center via secure chat to facilitate transfer. Medications administered in the ED include those listed below. Clinical impression: Traumatic subarachnoid hemorrhage with facial contusions and multiple abrasions with concurrent alcohol intoxication Interpretation per the Radiologist below, if available at the time of this note: CT cervical spine wo IV contrast Final Result Acute right-sided subarachnoid hemorrhage Acute right-sided facial bone fractures. Poor dentition with dental caries. This represents a critical test result (CTR). Findings were communicated via [employer] with receipt to BETSY CAMPOS on 02/11/2024 1:36 PM EDT. Examination: CT cervical spine Indication: trauma Technique: Axial CT images of the cervical spine were obtained at 1 mm intervals. Dose reduction was employed with automatic exposure control. Sagittal and coronal reconstructions were provided as well. Findings: The cervical vertebral bodies are in gross anatomic alignment. There is no acute cervical fracture. The disc spaces are grossly maintained. The neuroforamina are grossly patent. There is no prevertebral soft tissue swelling. No cervical adenopathy is demonstrated. Impression: Comminuted mildly displaced fractures of the right maxillary sinus with partial opacification and displaced fracture through the left mandibular condyle/neck with anteriorly dislocated left TMJ. No acute compression fracture of the cervical spine. Examination: CT facial bones Indication: trauma Technique: Axial CT images of the facial bones were obtained at 1 mm intervals Sagittal and coronal reconstructions were reviewed as well. Dose reduction was employed with automatic exposure control. Findings: Slightly comminuted fractures through the lateral and anterior portion of the right maxillary sinus present with moderate opacification. Nondisplaced orbital floor fracture present on the right. There does appear to be mild proptosis of the right lobe compared to the left. Poor dentition with multiple dental caries and numerous missing teeth. Impression: Comminuted mildly displaced fractures of the right maxillary sinus with partial opacification and displaced fracture through the left mandibular condyle with anteriorly dislocated left TMJ. Mild proptosis of the right lobe. Report Dictated on Electronically Signed By: Bethel Hansen MD Electronically Signed Date/Time: 02/11/2024 1:[address] maxillofacial wo IV contrast Final Result Acute right-sided subarachnoid hemorrhage Acute right-sided facial bone fractures. Poor dentition with dental caries. This represents a critical test result (CTR). Findings were communicated via [employer] with receipt to BETSY CAMPOS on 02/11/2024 1:36 PM EDT. Examination: CT cervical spine Indication: trauma Technique: Axial CT images of the cervical spine were obtained at 1 mm intervals. Dose reduction was employed with automatic exposure control. Sagittal and coronal reconstructions were provided as well. Findings: The cervical vertebral bodies are in gross anatomic alignment. There is no acute cervical fracture. The disc spaces are grossly maintained. The neuroforamina are grossly patent. There is no prevertebral soft tissue swelling. No cervical adenopathy is demonstrated. Impression: Comminuted mildly displaced fractures of the right maxillary sinus with partial opacification and displaced fracture through the left mandibular condyle/neck with anteriorly dislocated left TMJ. No acute compression fracture of the cervical spine. Examination: CT facial bones Indication: trauma Technique: Axial CT images of the facial bones were obtained at 1 mm intervals Sagittal and coronal reconstructions were reviewed as well. Dose reduction was employed with automatic exposure control. Findings: Slightly comminuted fractures through the lateral and anterior portion of the right maxillary sinus present with moderate opacification. Nondisplaced orbital floor fracture present on the right. There does appear to be mild proptosis of the right lobe compared to the left. Poor dentition with multiple dental caries and numerous missing teeth. Impression: Comminuted mildly displaced fractures of the right maxillary sinus with partial opacification and displaced fracture through the left mandibular condyle with anteriorly dislocated left TMJ. Mild proptosis of the right lobe. Report Dictated on Electronically Signed By: Bethel Hansen MD Electronically Signed Date/Time: 02/11/2024 1:[address] head wo IV contrast Final Result Acute right-sided subarachnoid hemorrhage Acute right-sided facial bone fractures. Poor dentition with dental caries. This represents a critical test result (CTR). Findings were communicated via [employer] secure chat with receipt to BETSY CAMPOS on 02/11/2024 1:36 PM EDT. Examination: CT cervical spine Indication: trauma Technique: Axial CT images of the cervical spine were obtained at 1 mm intervals. Dose reduction was employed with automatic exposure control. Sagittal and coronal reconstructions were provided as well. Findings: The cervical vertebral bodies are in gross anatomic alignment. There is no acute cervical fracture. The disc spaces are grossly maintained. The neuroforamina are grossly patent. There is no prevertebral soft tissue swelling. No cervical adenopathy is demonstrated. Impression: Comminuted mildly displaced fractures of the right maxillary sinus with partial opacification and displaced fracture through the left mandibular condyle/neck with anteriorly dislocated left TMJ. No acute compression fracture of the cervical spine. Examination: CT facial bones Indication: trauma Technique: Axial CT images of the facial bones were obtained at 1 mm intervals Sagittal and coronal reconstructions were reviewed as well. Dose reduction was employed with automatic exposure control. Findings: Slightly comminuted fractures through the lateral and anterior portion of the right maxillary sinus present with moderate opacification. Nondisplaced orbital floor fracture present on the right. There does appear to be mild proptosis of the right lobe compared to the left. Poor dentition with multiple dental caries and numerous missing teeth. Impression: Comminuted mildly displaced fractures of the right maxillary sinus with partial opacification and displaced fracture through the left mandibular condyle with anteriorly dislocated left TMJ. Mild proptosis of the right lobe. Report Dictated on Electronically Signed By: Bethel Hansen MD Electronically Signed Date/Time: 02/11/2024 1:41 PM EDT XR chest 1 view Final Result FINDINGS/IMPRESSION: Limitations: Patient positioning/rotation Lines, tubes, and devices: None. Cardiomediastinal silhouette: Heart size is within normal limits. Lungs/Pleura: Somewhat low lung volumes with suspected left greater than right basilar atelectasis. Previously seen nodular opacities inferior right lung less conspicuous than on prior study. No sizable pleural effusions. No pneumothorax. Osseous structures: Degenerative spondylosis in the visualized spine. Soft tissues: No soft tissue abnormality is detected. Report Dictated on Electronically Signed By: Mark Finnegan MD Electronically Signed Date/Time: 02/11/2024 1:16 PM EDT Medications lidocaine-EPINEPHrine (Xylocaine W/EPI) 1 %-1:[id number] injection 10 mL (10 mL Infiltration Given by Other 02/11/24 1255) PROCEDURES: Unless otherwise noted below, none Procedures FINAL IMPRESSION 1. SAH (subarachnoid hemorrhage) (HCC) 2. Contusion of face, initial encounter 3. Multiple abrasions 4. Alcoholic intoxication with complication (CMS/HCC) (HCC) 5. Alcohol use disorder 6. Chronic low back pain, unspecified back pain laterality, unspecified whether sciatica present 7. Chin laceration, initial encounter PATIENT REFERRED TO: No follow-up provider specified. DISCHARGE MEDICATIONS: New Prescriptions No medications on file (Comment: Please note this report has been produced using speech recognition software and may contain errors related to that system including errors in grammar, punctuation, and spelling, as well as words and phrases that may be inappropriate. If there are any questions or concerns please feel free to contact the dictating provider for clarification.) Betsy Campos DO (electronically signed) Emergency Medicine Provider Betsy Campos DO 02/11/247 Betsy Campos DO 02/11/247 [facility] [place] 02-08-2024 Hospital Discharge instructions Betsy Blum MD - 02/08/2024 6:36 AM EDT As discussed here today please take your medications as prescribed. We provided you outpatient resources as this is the route you would like to take for your treatment. Listed below are other additional options for you. [facility] - [phone] [phone] refer to Emergency Department Refer to Addiction Medicine Intensive Outpatient Program Renetta: [phone] or Janine: [phone] If you change your mind at any time would like to be admitted for inpatient detox please come back to the ER for repeat evaluation. The following attachments cannot be sent through Care Everywhere.Low Magnesium Level (Indian)Alcohol Use Disorder ED (Indian)Hypokalemia Discharge Instructions (Indian)Chronic Pain Discharge Instructions (Indian)documented in this encounter [facility] [place] 02-08-2024 Note NOTE: This result is for medical treatment only. Analysis performed using non-forensic procedures. [facility] 02-08-2024 Emergency department Note Pt here to the ER via EMS for kidney pain, weakness, diff breathing, and cough. Pt states he thinks he might have pneumonia and kidney failure. Pt drinks 10-15 shots a day. Last drink was midnight tonight. Pt states he needs help with his drinking but does not want to be locked up. documented in this encounter [facility] 02-08-2024 Emergency department Triage note Pt here to the ER via EMS for kidney pain, weakness, diff breathing, and cough. Pt states he thinks he might have pneumonia and kidney failure. Pt drinks 10-15 shots a day. Last drink was midnight tonight. Pt states he needs help with his drinking but does not want to be locked up. [facility] 01-28-2024 Hospital Discharge instructions Lauri Dior MD - 01/28/2024 11:58 PM EDT There is no evidence of pneumonia or kidney failure on your blood work. You were found to have pulmonary nodules which are of unknown significance at this time and did place referral to our lung nodule clinic with our lung doctors so that you can have continued monitoring of this. Please make sure you do follow-up with them to schedule an appointment if you do not hear from them in the next several days. Otherwise did place referral to our addiction medicine specialist which may help from a methadone withdrawal standpoint. For your coughing and shortness of breath recommend using the inhaler prescribed every 4-6 hours for shortness of breath and wheezing as well as taking the prednisone for the next 5 days as directed. Return if having worsening documented in this encounter [facility] 01-28-2024 Emergency department Note EMERGENCY DEPARTMENT ENCOUNTER Pt Name: El Smith Birthdate 1980 Date of evaluation: 01/28/2024 ED Provider: Lauri Dior MD CHIEF COMPLAINT Chief Complaint Patient presents with Cough Back Pain Flank Pain HISTORY OF PRESENT ILLNESS I wore appropriate PPE for the entirety of this encounter. HPI El Smith is a 43 y.o. person who presents to the emergency department with initial presentation of wanting detox from alcohol and methadone. He abruptly stopped his methadone 1 week ago and has been having some withdrawal symptoms but does not want to be restarted on this. He reports he has been on Suboxone in the past without much success. He reports daily alcohol use about 10 shots daily and had did have some earlier but states that he is feeling slightly shaky. Is never had withdrawal seizures. His main concern is that he continues coughing and is worried about continued pneumonia as he was diagnosed with this recently. It appears that he was diagnosed on 01/06/2024 at outside emergency department with possible viral pneumonia although started on antibiotics. He also reports bilateral flank pain and is worried about kidney failure as he has had this in the past he has been drinking fluids without any distress although does endorse some occasional nausea and vomiting. Denies any diarrhea dysuria or hematuria. He does endorse some pain in his right upper quadrant as well as with coughing in the lower ribs Nursing Notes were reviewed. Limitations to history: None Outside historians: None REVIEW OF SYSTEMS Review of Systems Respiratory: Positive for cough and shortness of breath. Gastrointestinal: Positive for abdominal pain and nausea. 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 Drug abuse ([facility]) ([facility]) Gastroenteritis 11/23/2018 Last Assessment & Plan: Predominantly vomiting; ?food poisoning vs viral gastroenteritis IV hydration PRN antiemetics Hyperlipidemia Hypertension Iritis of left eye 09/20/2018 [facility] infarction[facility] ([facility]) Opioid dependence, uncomplicated ([facility]) 10/27/2021 Presence of stent in right coronary artery 10/02/2021 Sciatica Spinal stenosis, lumbar Tobacco abuse SURGICAL HISTORY Past Surgical History: Procedure Laterality Date ARM SURGERY (HISTORICAL) metal rods in adam upper extremities BACK SURGERY COLONOSCOPY CORONARY ANGIOPLASTY WITH STENT PLACEMENT 09/23/2021 DORIS to proximal RCA FRACTURE SURGERY CURRENT MEDICATIONS Previous Medications ASPIRIN 81 MG EC TABLET Take 81 mg by mouth in the morning. ATORVASTATIN (LIPITOR) 40 MG TABLET Take 1 tablet (40 mg) by mouth daily. CARVEDILOL (COREG) 6.25 MG TABLET Take 1 tablet (6.25 mg) by mouth in the morning and 1 tablet (6.25 mg) in the evening. Take with meals. LISINOPRIL 5 MG TABLET Take 5 mg by mouth. METHADONE (DOLOPHINE) 10 MG/5ML SOLUTION Take 150 mg by mouth daily. PANTOPRAZOLE (PROTONIX) 40 MG EC TABLET Take 1 tablet (40 mg) by mouth every morning (before breakfast). Do not crush, chew, or split. ALLERGIES Nickel FAMILY HISTORY Family History Problem Relation Name Age of Onset Atrial fibrillation Sister Hyperlipidemia Mother Obesity Mother Asthma Mother Depression Mother Obesity Sister Depression Sister Arthritis Mother High Blood Pressure Maternal Grandmother Diabetes Mother Asthma Maternal Grandmother Substance Abuse Sister Diabetes Father Stroke Paternal Grandfather Arthritis Sister High Blood Pressure Mother Vision loss Maternal Grandmother Diabetes Maternal Grandmother Stroke Maternal Grandmother Arthritis Maternal Grandfather Arthritis Maternal Grandmother Cancer Maternal Grandfather Depression Maternal Grandmother Cancer Brother Diabetes Paternal Grandfather Stroke Paternal Grandmother Diabetes Maternal Grandfather Obesity Maternal Grandmother Depression Maternal Grandfather Arthritis Paternal Grandmother Vision loss Maternal Grandfather Depression Paternal Grandmother Arthritis Paternal Grandfather SOCIAL HISTORY Social History Socioeconomic History Marital status: Single Tobacco Use Smoking status: Every Day Current packs/day: 1.00 Types: Cigarettes Smokeless tobacco: Never Vaping Use Vaping status: Every Day Substances: THC Substance and Sexual Activity Alcohol use: Yes Comment: 10-15 shots of whiskey Drug use: Yes Types: Marijuana Comment: uses methadone, also buys pain meds on the streets Social Determinants of Health Financial Resource Strain: Low Risk (01/16/2020) Received from [facility] Overall Financial Resource Strain (CARDIA) Difficulty of Paying Living Expenses: Not very hard Food Insecurity: No Food Insecurity (01/16/2020) Received from [facility] Hunger Vital Sign Worried About Running Out of Food in the Last Year: Never true Ran Out of Food in the Last Year: Never true Transportation Needs: Unmet Transportation Needs (04/21/2023) PRAPARE - Transportation Lack of Transportation (Medical): Yes Lack of Transportation (Non-Medical): Yes Intimate Partner Violence: Not At Risk (04/21/2023) Humiliation, Afraid, Rape, and Kick questionnaire Fear of Current or Ex-Partner: No Emotionally Abused: No Physically Abused: No Sexually Abused: No Housing Stability: High Risk (04/21/2023) Housing Stability Vital Sign Unable to Pay for Housing in the Last Year: Yes Number of Places Lived in the Last Year: 1 Unstable Housing in the Last Year: No SCREENINGS PHYSICAL EXAM ED Triage Vitals Temp Heart Rate Resp BP 01/28/24221301/28/242213 -- 01/28/242213 36.8 C (98.2 F) (!) 112 (!) 148/106 SpO2 Temp Source Heart Rate Source Patient Position 01/28/24221301/28/24221301/28/24222601/28/242213 100 % Oral Monitor Sitting BP Location FiO2 (%) 01/28/242213 -- Right arm GENERAL: The patient appears nourished and normally developed. Vital signs as documented. EYES: PERRL. No scleral icterus or orbital trauma noted. HEENT: Mucous membranes moist. Nares patent without copious rhinorrhea. LUNGS: Lungs with diffuse wheezing although no rhonchi or rails, without any respiratory distress. CARDIAC: Rhythm is regular. No murmur appreciated ABDOMEN: Tender in the upper abdomen bilaterally as well as bilateral CVA tenderness, soft, with no obvious masses, and no peritoneal signs. EXTREMITIES: Non edematous, with no obvious deformities. SKIN: Good color, with no significant rashes. No pallor. NEURO: No obvious neurological deficits, normal sensation and strength bilaterally. DIAGNOSTIC RESULTS RADIOLOGY (Per Emergency Physician): Interpretation per the Radiologist below, if available at the time of this note: CT abdomen pelvis wo IV contrast Final Result 1. Bilateral nephrolithiasis. No significant hydronephrosis. 2. Common bile duct dilatation without apparent cholelithiasis or choledocholithiasis. Correlation with ultrasound right upper quadrant may help in further evaluation, and follow-up suggested. 3. Probable hepatic and right renal cysts. 4. Mild anterior wedging L1 vertebral body, new in the interval, but age-indeterminate. Correlate clinically. Report Dictated on Electronically Signed By: Tk Trinh MD Electronically Signed Date/Time: 01/28/2024 11:50 PM EDT XR chest 1 view Final Result 1. Nodular opacities x3 projecting over right inferolateral lung, new in the interval. Correlation with noncontrast CT chest may help in further evaluation, and follow-up suggested. 2. No acute consolidation. Report Dictated on Electronically Signed By: Tk Trinh MD Electronically Signed Date/Time: 01/28/2024 11:29 PM EDT EKG Interpretation: LABS: Labs Reviewed CBC WITH AUTO DIFFERENTIAL - Abnormal Result Value Auto WBC 7.2 RBC 5.18 Hemoglobin 11.8 (*) Hematocrit 37.5 (*) MCV 72.4 (*) MCH 22.8 (*) MCHC 31.5 RDW 16.3 (*) Platelets 285 MPV 8.9 (*) nRBC 0.0 Neutrophils Relative 56.4 Lymphocytes Relative 31.1 Monocytes Relative 11.2 Eosinophils Relative 0.1 Basophils Relative 1.1 Immature Grans % 0.1 Neutrophils Absolute 4.1 Lymphocytes Absolute 2.3 Monocytes Absolute 0.8 Eosinophils Absolute 0.0 Basophils Absolute 0.1 Immature Grans Absolute 0.0 COMPREHENSIVE METABOLIC PANEL - Abnormal SODIUM 142 POTASSIUM 2.9 (*) CHLORIDE 95 (*) CARBON DIOXIDE 35 (*) ANION GAP 12 UREA NITROGEN 8 (*) CREATININE 0.62 (*) GLUCOSE 98 CALCIUM 8.6 AST (SGOT) 76 (*) ALT 26 ALKALINE PHOSPHATASE 160 (*) ALBUMIN 3.8 BILIRUBIN, TOTAL 0.6 TOTAL PROTEIN 8.2 eGFR >90.0 LIPASE - Abnormal LIPASE 537 (*) COMPLETE URINALYSIS WITH REFLEX TO CULTURE Narrative: The following orders were created for panel order Complete Urinalysis with reflex to Culture. Procedure Abnormality Status --------- ------ Complete Urinalysis[[id number]] Please view results for these tests on the individual orders. COMPLETE URINALYSIS All other labs were within normal range or not returned as of this dictation. EMERGENCY DEPARTMENT COURSE and DIFFERENTIAL DIAGNOSIS/MDM: Vitals: Vitals: 01/28/24 2214 01/28/247 01/28/24 2305 BP: (!) 148/106 126/85 BP Location: Right arm Right arm Patient Position: Sitting Sitting Pulse: (!) 112 105 94 Resp: 16 Temp: 36.8 C (98.2 F) TempSrc: Oral SpO2: 100% 98% Weight: 73.5 kg (162 lb) Height: 1.778 m (5' 10) Medications Administered in the ED: Medications LORazepam (Ativan) injection 1 mg (1 mg IntraVENous Given 01/28/242246) ipratropium-albuterol (Duo-Neb) 0.5-2.5 mg/3 mL nebulizer solution 3 mL (3 mL Nebulization Given 01/28/242249) methylPREDNISolone sodium succinate (PF) (SOLU-Medrol) injection 40 mg (40 mg IntraVENous Given 01/28/242244) sodium chloride 0.9 % bolus 1,000 mL (0 mL IntraVENous Stopped 01/28/242337) ondansetron (Zofran) injection 4 mg (4 mg IntraVENous Given 01/28/242302) potassium chloride (Klor-Con) packet 40 mEq (40 mEq Oral Given 01/28/242334) With concern for nausea, abdominal pain, cough PROCEDURES: Unless otherwise noted below, none Procedures Differential Diagnosis Considerations: Pneumonia, viral illness, COPD/asthma exacerbation, hepatitis, cirrhosis, gallbladder pathology, UTI, upon nephritis, dehydration, ROMEO, kidney stone Sources of History: Patient ED Course: Vital signs on arrival with tachycardia otherwise normal and stable he does not appear acutely ill he does not want inpatient detox and will give him Ativan to curb off any withdrawal symptoms that may develop. He is likely having some contribution of abrupt withdrawal from methadone contributing to his symptoms although does not want to be restarted on Suboxone or other opiate abuse therapies. Will give him fluids, Zofran as well as DuoNeb treatments. Will be checking a CT abdomen pelvis without contrast for his flank pain as well as upper abdominal pain along with chest x-ray Reassessment: Patient's workup without any acute anemia or leukocytosis requiring intervention. Did have mild hypokalemia was replaced orally no evidence of kidney failure was noted normal bilirubin although mildly elevated AST compared to ALT consistent with alcohol use disorder lipase was mildly elevated at 537 although he does not have any findings of pancreatitis on his imaging as well as minimal epigastric if at all tenderness was noted and does not meet any criteria for this. His CT abdomen pelvis did comment on slight biliary duct dilation although no stones or evidence of choledocholithiasis were noted. Patient does feel slightly improved and has improved aeration of his lungs and likely has a component of COPD/reactive airway disease ongoing chest x-ray was personally reviewed and there are several nodules noted on the right side they do not appear to be surface level is on reexamination does not have anything on his skin that would explain this and with his smoking could be at a high risk for cancer did make patient aware of this and will follow-up with lung nodule clinic. Prescribed albuterol and prednisone for home-going he does not want inpatient detox at this time although with his methadone stopping did place referral to addiction medicine Consideration of Admission/Observation: Independent Interpretation of Tests: Diagnostic Tests Considered but not Performed: Prescription Medications Considered but not Prescribed: Chronic Conditions Affecting Care: Alcohol use, smoking FINAL IMPRESSION 1. Cough, unspecified type 2. Wheezing 3. Lung nodules 4. Methadone withdrawal (HCC) DISPOSITION Discharge 01/28/2024 11:56:26 PM CRITICAL CARE TIME PATIENT REFERRED TO: [facility] [place] [phone] [facility] Addiction [place] [id number] DISCHARGE MEDICATIONS: New Prescriptions ALBUTEROL 108 (90 BASE) MCG/ACT INHALER Inhale 2 puffs every 4 hours as needed for wheezing. PREDNISONE (DELTASONE) 50 MG TABLET Take 1 tablet (50 mg) by mouth daily for 5 days. (Comment: Please note this report has been produced using speech recognition software and may contain errors related to that system including errors in grammar, punctuation, and spelling, as well as words and phrases that may be inappropriate. If there are any questions or concerns please feel free to contact the dictating provider for clarification.) Lauri Dior MD (electronically signed) Emergency Medicine Provider [employer] Lauri Dior MD 01/29/24 0000 Patient arrived ambulatory to room 2 with a limp with mother. Patient states he thinks he has pneumonia and kidney failure. Patient complains of mid back pain, bilateral flank pain and decreased urination x 3 days. Patient was diagnosed with pneumonia last month but does not think it has cleared up. Patient has productive cough with clear phlegm, nausea, vomiting, muscle cramps, and diarrhea x 1 wk. Patient has not taken methadone x 1 wk and admits to drinking today. documented in this encounter [facility] 01-28-2024 Emergency department Triage note Patient arrived ambulatory to room 2 with a limp with mother. Patient states he thinks he has pneumonia and kidney failure. Patient complains of mid back pain, bilateral flank pain and decreased urination x 3 days. Patient was diagnosed with pneumonia last month but does not think it has cleared up. Patient has productive cough with clear phlegm, nausea, vomiting, muscle cramps, and diarrhea x 1 wk. Patient has not taken methadone x 1 wk and admits to drinking today. [facility] 01-28-2024 Physician Emergency department Note EMERGENCY DEPARTMENT ENCOUNTER Pt Name: El Smith Birthdate 1980 Date of evaluation: 01/28/2024 ED Provider: Lauri Dior MD CHIEF COMPLAINT Chief Complaint Patient presents with Cough Back Pain Flank Pain HISTORY OF PRESENT ILLNESS I wore appropriate PPE for the entirety of this encounter. HPI El Smith is a 43 y.o. person who presents to the emergency department with initial presentation of wanting detox from alcohol and methadone. He abruptly stopped his methadone 1 week ago and has been having some withdrawal symptoms but does not want to be restarted on this. He reports he has been on Suboxone in the past without much success. He reports daily alcohol use about 10 shots daily and had did have some earlier but states that he is feeling slightly shaky. Is never had withdrawal seizures. His main concern is that he continues coughing and is worried about continued pneumonia as he was diagnosed with this recently. It appears that he was diagnosed on 01/06/2024 at outside emergency department with possible viral pneumonia although started on antibiotics. He also reports bilateral flank pain and is worried about kidney failure as he has had this in the past he has been drinking fluids without any distress although does endorse some occasional nausea and vomiting. Denies any diarrhea dysuria or hematuria. He does endorse some pain in his right upper quadrant as well as with coughing in the lower ribs Nursing Notes were reviewed. Limitations to history: None Outside historians: None REVIEW OF SYSTEMS Review of Systems Respiratory: Positive for cough and shortness of breath. Gastrointestinal: Positive for abdominal pain and nausea. 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 Drug abuse ([facility]) ([facility]) Gastroenteritis 11/23/2018 Last Assessment & Plan: Predominantly vomiting; ?food poisoning vs viral gastroenteritis IV hydration PRN antiemetics Hyperlipidemia Hypertension Iritis of left eye 09/20/2018 [facility] ([facility]) Opioid dependence, uncomplicated ([facility]) 10/27/2021 Presence of stent in right coronary artery 10/02/2021 Sciatica Spinal stenosis, lumbar Tobacco abuse SURGICAL HISTORY Past Surgical History: Procedure Laterality Date ARM SURGERY (HISTORICAL) metal rods in adam upper extremities BACK SURGERY COLONOSCOPY CORONARY ANGIOPLASTY WITH STENT PLACEMENT 09/23/2021 DORIS to proximal RCA FRACTURE SURGERY CURRENT MEDICATIONS Previous Medications ASPIRIN 81 MG EC TABLET Take 81 mg by mouth in the morning. ATORVASTATIN (LIPITOR) 40 MG TABLET Take 1 tablet (40 mg) by mouth daily. CARVEDILOL (COREG) 6.25 MG TABLET Take 1 tablet (6.25 mg) by mouth in the morning and 1 tablet (6.25 mg) in the evening. Take with meals. LISINOPRIL 5 MG TABLET Take 5 mg by mouth. METHADONE (DOLOPHINE) 10 MG/5ML SOLUTION Take 150 mg by mouth daily. PANTOPRAZOLE (PROTONIX) 40 MG EC TABLET Take 1 tablet (40 mg) by mouth every morning (before breakfast). Do not crush, chew, or split. ALLERGIES Nickel FAMILY HISTORY Family History Problem Relation Name Age of Onset Atrial fibrillation Sister Hyperlipidemia Mother Obesity Mother Asthma Mother Depression Mother Obesity Sister Depression Sister Arthritis Mother High Blood Pressure Maternal Grandmother Diabetes Mother Asthma Maternal Grandmother Substance Abuse Sister Diabetes Father Stroke Paternal Grandfather Arthritis Sister High Blood Pressure Mother Vision loss Maternal Grandmother Diabetes Maternal Grandmother Stroke Maternal Grandmother Arthritis Maternal Grandfather Arthritis Maternal Grandmother Cancer Maternal Grandfather Depression Maternal Grandmother Cancer Brother Diabetes Paternal Grandfather Stroke Paternal Grandmother Diabetes Maternal Grandfather Obesity Maternal Grandmother Depression Maternal Grandfather Arthritis Paternal Grandmother Vision loss Maternal Grandfather Depression Paternal Grandmother Arthritis Paternal Grandfather SOCIAL HISTORY Social History Socioeconomic History Marital status: Single Tobacco Use Smoking status: Every Day Current packs/day: 1.00 Types: Cigarettes Smokeless tobacco: Never Vaping Use Vaping status: Every Day Substances: THC Substance and Sexual Activity Alcohol use: Yes Comment: 10-15 shots of whiskey Drug use: Yes Types: Marijuana Comment: uses methadone, also buys pain meds on the streets Social Determinants of Health Financial Resource Strain: Low Risk (01/16/2020) Received from [facility] Overall Financial Resource Strain (CARDIA) Difficulty of Paying Living Expenses: Not very hard Food Insecurity: No Food Insecurity (01/16/2020) Received from [facility] Hunger Vital Sign Worried About Running Out of Food in the Last Year: Never true Ran Out of Food in the Last Year: Never true Transportation Needs: Unmet Transportation Needs (04/21/2023) PRAPARE - Transportation Lack of Transportation (Medical): Yes Lack of Transportation (Non-Medical): Yes Intimate Partner Violence: Not At Risk (04/21/2023) Humiliation, Afraid, Rape, and Kick questionnaire Fear of Current or Ex-Partner: No Emotionally Abused: No Physically Abused: No Sexually Abused: No Housing Stability: High Risk (04/21/2023) Housing Stability Vital Sign Unable to Pay for Housing in the Last Year: Yes Number of Places Lived in the Last Year: 1 Unstable Housing in the Last Year: No SCREENINGS PHYSICAL EXAM ED Triage Vitals Temp Heart Rate Resp BP 01/28/24221301/28/242213 -- 01/28/242213 36.8 C (98.2 F) (!) 112 (!) 148/106 SpO2 Temp Source Heart Rate Source Patient Position 01/28/24221301/28/24221301/28/24222601/28/242213 100 % Oral Monitor Sitting BP Location FiO2 (%) 10/12/24 2214 -- Right arm GENERAL: The patient appears nourished and normally developed. Vital signs as documented. EYES: PERRL. No scleral icterus or orbital trauma noted. HEENT: Mucous membranes moist. Nares patent without copious rhinorrhea. LUNGS: Lungs with diffuse wheezing although no rhonchi or rails, without any respiratory distress. CARDIAC: Rhythm is regular. No murmur appreciated ABDOMEN: Tender in the upper abdomen bilaterally as well as bilateral CVA tenderness, soft, with no obvious masses, and no peritoneal signs. EXTREMITIES: Non edematous, with no obvious deformities. SKIN: Good color, with no significant rashes. No pallor. NEURO: No obvious neurological deficits, normal sensation and strength bilaterally. DIAGNOSTIC RESULTS RADIOLOGY (Per Emergency Physician): Interpretation per the Radiologist below, if available at the time of this note: CT abdomen pelvis wo IV contrast Final Result 1. Bilateral nephrolithiasis. No significant hydronephrosis. 2. Common bile duct dilatation without apparent cholelithiasis or choledocholithiasis. Correlation with ultrasound right upper quadrant may help in further evaluation, and follow-up suggested. 3. Probable hepatic and right renal cysts. 4. Mild anterior wedging L1 vertebral body, new in the interval, but age-indeterminate. Correlate clinically. Report Dictated on Electronically Signed By: Tk Trinh MD Electronically Signed Date/Time: 01/28/2024 11:50 PM EDT XR chest 1 view Final Result 1. Nodular opacities x3 projecting over right inferolateral lung, new in the interval. Correlation with noncontrast CT chest may help in further evaluation, and follow-up suggested. 2. No acute consolidation. Report Dictated on Electronically Signed By: kT Trinh MD Electronically Signed Date/Time: 01/28/2024 11:29 PM EDT EKG Interpretation: LABS: Labs Reviewed CBC WITH AUTO DIFFERENTIAL - Abnormal Result Value Auto WBC 7.2 RBC 5.18 Hemoglobin 11.8 (*) Hematocrit 37.5 (*) MCV 72.4 (*) MCH 22.8 (*) MCHC 31.5 RDW 16.3 (*) Platelets 285 MPV 8.9 (*) nRBC 0.0 Neutrophils Relative 56.4 Lymphocytes Relative 31.1 Monocytes Relative 11.2 Eosinophils Relative 0.1 Basophils Relative 1.1 Immature Grans % 0.1 Neutrophils Absolute 4.1 Lymphocytes Absolute 2.3 Monocytes Absolute 0.8 Eosinophils Absolute 0.0 Basophils Absolute 0.1 Immature Grans Absolute 0.0 COMPREHENSIVE METABOLIC PANEL - Abnormal SODIUM 142 POTASSIUM 2.9 (*) CHLORIDE 95 (*) CARBON DIOXIDE 35 (*) ANION GAP 12 UREA NITROGEN 8 (*) CREATININE 0.62 (*) GLUCOSE 98 CALCIUM 8.6 AST (SGOT) 76 (*) ALT 26 ALKALINE PHOSPHATASE 160 (*) ALBUMIN 3.8 BILIRUBIN, TOTAL 0.6 TOTAL PROTEIN 8.2 eGFR >90.0 LIPASE - Abnormal LIPASE 537 (*) COMPLETE URINALYSIS WITH REFLEX TO CULTURE Narrative: The following orders were created for panel order Complete Urinalysis with reflex to Culture. Procedure Abnormality Status --------- ------ Complete Urinalysis[[id number]] Please view results for these tests on the individual orders. COMPLETE URINALYSIS All other labs were within normal range or not returned as of this dictation. EMERGENCY DEPARTMENT COURSE and DIFFERENTIAL DIAGNOSIS/MDM: Vitals: Vitals: 01/28/24 2214 01/28/24222601/28/245 BP: (!) 148/106 126/85 BP Location: Right arm Right arm Patient Position: Sitting Sitting Pulse: (!) 112 105 94 Resp: 16 Temp: 36.8 C (98.2 F) TempSrc: Oral SpO2: 100% 98% Weight: 73.5 kg (162 lb) Height: 1.778 m (5' 10) Medications Administered in the ED: Medications LORazepam (Ativan) injection 1 mg (1 mg IntraVENous Given 01/28/242246) ipratropium-albuterol (Duo-Neb) 0.5-2.5 mg/3 mL nebulizer solution 3 mL (3 mL Nebulization Given 01/28/242249) methylPREDNISolone sodium succinate (PF) (SOLU-Medrol) injection 40 mg (40 mg IntraVENous Given 01/28/242244) sodium chloride 0.9 % bolus 1,000 mL (0 mL IntraVENous Stopped 01/28/242337) ondansetron (Zofran) injection 4 mg (4 mg IntraVENous Given 01/28/24 2303) potassium chloride (Klor-Con) packet 40 mEq (40 mEq Oral Given 01/28/24 3205) With concern for nausea, abdominal pain, cough PROCEDURES: Unless otherwise noted below, none Procedures Differential Diagnosis Considerations: Pneumonia, viral illness, COPD/asthma exacerbation, hepatitis, cirrhosis, gallbladder pathology, UTI, upon nephritis, dehydration, ROMEO, kidney stone Sources of History: Patient ED Course: Vital signs on arrival with tachycardia otherwise normal and stable he does not appear acutely ill he does not want inpatient detox and will give him Ativan to curb off any withdrawal symptoms that may develop. He is likely having some contribution of abrupt withdrawal from methadone contributing to his symptoms although does not want to be restarted on Suboxone or other opiate abuse therapies. Will give him fluids, Zofran as well as DuoNeb treatments. Will be checking a CT abdomen pelvis without contrast for his flank pain as well as upper abdominal pain along with chest x-ray Reassessment: Patient's workup without any acute anemia or leukocytosis requiring intervention. Did have mild hypokalemia was replaced orally no evidence of kidney failure was noted normal bilirubin although mildly elevated AST compared to ALT consistent with alcohol use disorder lipase was mildly elevated at 537 although he does not have any findings of pancreatitis on his imaging as well as minimal epigastric if at all tenderness was noted and does not meet any criteria for this. His CT abdomen pelvis did comment on slight biliary duct dilation although no stones or evidence of choledocholithiasis were noted. Patient does feel slightly improved and has improved aeration of his lungs and likely has a component of COPD/reactive airway disease ongoing chest x-ray was personally reviewed and there are several nodules noted on the right side they do not appear to be surface level is on reexamination does not have anything on his skin that would explain this and with his smoking could be at a high risk for cancer did make patient aware of this and will follow-up with lung nodule clinic. Prescribed albuterol and prednisone for home-going he does not want inpatient detox at this time although with his methadone stopping did place referral to addiction medicine Consideration of Admission/Observation: Independent Interpretation of Tests: Diagnostic Tests Considered but not Performed: Prescription Medications Considered but not Prescribed: Chronic Conditions Affecting Care: Alcohol use, smoking FINAL IMPRESSION 1. Cough, unspecified type 2. Wheezing 3. Lung nodules 4. Methadone withdrawal (HCC) DISPOSITION Discharge 01/28/2024 11:56:26 PM CRITICAL CARE TIME PATIENT REFERRED TO: [facility] [place] [address] [facility] [address] [facility] [address] [facility] [address] DISCHARGE MEDICATIONS: New Prescriptions ALBUTEROL 108 (90 BASE) MCG/ACT INHALER Inhale 2 puffs every 4 hours as needed for wheezing. PREDNISONE (DELTASONE) 50 MG TABLET Take 1 tablet (50 mg) by mouth daily for 5 days. (Comment: Please note this report has been produced using speech recognition software and may contain errors related to that system including errors in grammar, punctuation, and spelling, as well as words and phrases that may be inappropriate. If there are any questions or concerns please feel free to contact the dictating provider for clarification.) Lauri Dior MD (electronically signed) Emergency Medicine Provider Acute Care [facility] Lauri Dior MD 01/29/24 0000 [facility] 10-27-2023 History of Present illness Narrative Images from the original note were not included. [facility] [address] [place] [address] Dept: [phone] Dept Chief Complaint Patient presents with New Patient 10/21/23 DOI Left 4th MC shaft fx HISTORY El Smith is a 43 y.o. ambidextrous male that presents for evaluation and treatment after sustaining an injury to his LEFT hand that occurred 6 days ago. El is currently on disability for low back through the [facility] . Mechanism of injury - Fell down stairs and caught himself with the left hand Treatment up to this point has consisted of Xrays and splinting in the emergency room, he admits to only wearing the splint for one day Also endorses pain and bruising on the right posterior thigh. Feels that he is sitting on a golf ball. Lab Results Component Value Date HGBA1C 4.8 04/16/2023 OBJECTIVE BP 128/68 Ht 5' 10 (1.778 m) Wt 200 lb (90.7 kg) BMI 28.70 kg/m Ortho Exam Focused Exam of the LEFT Upper Extremity Skin is intact. Expected amount of swelling. Full range finger ROM without extensor lag or rotational deformity. Minimal tenderness along the fourth metacarpal shaft. NVID. Right lower extremity reveals bruising along the entire course of the hamstring tendon from the buttock to the lateral knee. Tender along the ischium. IMAGING Plain films were taken today and reviewed by myself in office. 3V HAND (AP, Oblique, and LAT) show displaced short oblique fracture fourth metacarpal PROCEDURE None ASSESSMENT (S62.153X) Closed displaced fracture of shaft of fourth metacarpal bone of left hand, initial encounter 1. Closed displaced fracture of shaft of fourth metacarpal bone of left hand, initial encounter [facility] [place] [place] Orthopedics Hand/Wrist Upper Extremities - [facility], XR hand 3+ views left PLAN I discussed with El the natural history, expected outcome, and risks/benefits of both operative and nonoperative management of his particular diagnosis relative to his age, activity level, most recent imaging, and physical exam. El presents with a mildly displaced fourth metacarpal shaft fracture. He has full ROM without any angular or rotational deformity. I recommend treating him conservatively with a hand-based splint and peg tape. He is work wrist and finger ROM but to avoid any weightbearing. He also has what appears to be a proximal right hamstring rupture. He is able to ambulate without issue so I am not concerned for fracture. We discussed referral to sports medicine but he declined. Understands he may always have a slight abnormality in his buttock secondary to the tendon rupture. He is okay excepting this. He will follow-up in 5 weeks time with repeat x-rays of his hand. Tylenol and ibuprofen for pain. Immobilization: EXOS splint and peg taping ring to long to be worn at al times, may remove for hygiene Weight Bearing: Non Weight Bearing Follow-up: El will followup with my physician mail handler assistant, Martha Hernandez PA-C in 5 weeks. He knows to call the office with any questions or concerns in the interim. Future Imaging: LEFT Hand 3V Jamey No MD Hand and Upper Extremity Surgery [facility] Department of Orthopaedics and Sports Medicine 10/27/2023 (Please note that portions of this note may have been completed with a voice recognition program. Efforts were made to edit the dictations but occasionally words are mis-transcribed.) documented in this encounter [facility] 10-21-2023 Emergency department Note Pt ambulatory to ED3 with mother with c/o left hand pain. Pt states at 0200 he tried to stop himself from falling and caught himself with outstretched left hand. Pt states pain is in left hand and not in left wrist or arm. Pt reports throbbing pain at rest and 10/10 pain with movement. Pt is on methadone. Pt is A&Ox3, respirations even and unlabored, skin warm and dry, no distress noted. documented in this encounter [facility] 10-21-2023 Emergency department Triage note Pt ambulatory to ED3 with mother with c/o left hand pain. Pt states at 0200 he tried to stop himself from falling and caught himself with outstretched left hand. Pt states pain is in left hand and not in left wrist or arm. Pt reports throbbing pain at rest and 10/10 pain with movement. Pt is on methadone. Pt is A&Ox3, respirations even and unlabored, skin warm and dry, no distress noted. [facility] 04-25-2023 Emergency department Note Reviewed discharge instructions and patient verbalized understanding, speaking full sentences. No further questions. Patient briskly ambulated out of ED with strong steady gait. Respirations even and non labored. No acute distress. A&O x4. Rhoda Kim RN 04/25/23 0041 [facility] 04-25-2023 Emergency department Note Patient states that he has a spirometer at home and verbalizes understanding to use it. This RN encouraged him to do so. Also encouraged him to seek smoking cessation assistance from primary care. Rhoda Kim RN 04/25/23 004 [facility] 04-25-2023 Emergency department Note Reviewed discharge instructions and patient verbalized understanding, speaking full sentences. No further questions. Patient briskly ambulated out of ED with strong steady gait. Respirations even and non labored. No acute distress. A&O x4. Rhoda Kmi RN 04/25/23 004 Patient states that he has a spirometer at home and verbalizes understanding to use it. This RN encouraged him to do so. Also encouraged him to seek smoking cessation assistance from primary care. Rhoda Kim RN 04/25/2341 EMERGENCY DEPARTMENT ENCOUNTER Pt Name: El Smith Birthdate 1980 Date of evaluation: 04/24/2023 ED Provider: Lauri Dior MD CHIEF COMPLAINT Chief Complaint Patient presents with Shortness of Breath HISTORY OF PRESENT ILLNESS I wore appropriate PPE for the entirety of this encounter. HPI El Smith is a 42 y.o. person who presents to the emergency department with a multitude of complaints. States that he was recently seen and admitted to the hospital for similar symptoms and they have been persistent since then.Was admitted on 04/16/2023 for alcohol withdrawal symptoms as well as possible pneumonia. At that time patient felt that he wanted to leave AGAINST MEDICAL ADVICE and was discharged. Was not started on any antibiotics as it is questionable whether or not he actually had an infiltrate and he has had pneumonia in the past requiring hospitalization and ICU level care. He was then readmitted on 19 April 2023 where he was complaining of chest pain over the past week. He had flulike symptoms at that time and respiratory panels were negative. Cardiology did evaluate patient and recommended no further workup as symptoms been persistent and mainly thought it was related to some abdominal symptoms. He states that when he went home he did detox in the hospital and drink only 2 beers on Tuesday none today and does not want to go to any inpatient detox. Does not feel like he is withdrawing although is just very anxious about his symptoms including chest pain and abdominal pain. He endorses emesis of blood on Tuesday although none since. Does describe some may be black stools although seems to be intermittent in nature since yesterday. He feels like his abdomen is bloated more so in the epigastric region. He states his chest pain is central and sometimes in the left side without radiation but does not feel like his previous heart attack and has been persistent for the last week if not longer. He states he is also having slight headache along with this. Patient is very jittery and anxious and states that his anxiety goes through the roof. Mother is present and notes that every time he is in the hospital the loaded him with Ativan. He does state he is trying to quit drinking and is going through a treatment program at [place] where he receives methadone he did receive a dose of methadone earlier in the day as well Nursing Notes were reviewed. Limitations to history: None Outside historians: None REVIEW OF SYSTEMS Review of Systems Constitutional: Positive for appetite change. Respiratory: Positive for shortness of breath. Cardiovascular: Positive for chest pain. Gastrointestinal: Positive for abdominal pain, nausea and vomiting. 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 Drug abuse ([facility]) ([facility]) Gastroenteritis 11/23/2018 Last Assessment & Plan: Predominantly vomiting; ?food poisoning vs viral gastroenteritis IV hydration PRN antiemetics Hyperlipidemia Hypertension Iritis of left eye 09/20/2018 [facility]my[facility] infarction[facility] ([facility]) Opioid dependence, uncomplicated ([facility]) 10/27/2021 Presence of stent in right coronary artery 10/02/2021 Sciatica Spinal stenosis, lumbar Tobacco abuse SURGICAL HISTORY Past Surgical History: Procedure Laterality Date ARM SURGERY (HISTORICAL) metal rods in adam upper extremities BACK SURGERY COLONOSCOPY CORONARY ANGIOPLASTY WITH STENT PLACEMENT 09/23/2021 DORIS to proximal RCA FRACTURE SURGERY CURRENT MEDICATIONS Previous Medications ASPIRIN 81 MG EC TABLET Take 81 mg by mouth in the morning. ATORVASTATIN (LIPITOR) 40 MG TABLET Take 1 tablet (40 mg) by mouth daily. CARVEDILOL (COREG) 6.25 MG TABLET Take 1 tablet (6.25 mg) by mouth in the morning and 1 tablet (6.25 mg) in the evening. Take with meals. LISINOPRIL 5 MG TABLET Take 5 mg by mouth. METHADONE (DOLOPHINE) 10 MG/5ML SOLUTION Take 150 mg by mouth daily. TICAGRELOR (BRILINTA) 90 MG TABLET Take 1 tablet (90 mg) by mouth 2 times daily. ALLERGIES Nickel FAMILY HISTORY Family History Problem Relation Name Age of Onset Atrial fibrillation Sister Hyperlipidemia Mother Obesity Mother Asthma Mother Depression Mother Obesity Sister Depression Sister Arthritis Mother High Blood Pressure Maternal Grandmother Diabetes Mother Asthma Maternal Grandmother Substance Abuse Sister Diabetes Father Stroke Paternal Grandfather Arthritis Sister High Blood Pressure Mother Vision loss Maternal Grandmother Diabetes Maternal Grandmother Stroke Maternal Grandmother Arthritis Maternal Grandfather Arthritis Maternal Grandmother Cancer Maternal Grandfather Depression Maternal Grandmother Cancer Brother Diabetes Paternal Grandfather Stroke Paternal Grandmother Diabetes Maternal Grandfather Obesity Maternal Grandmother Depression Maternal Grandfather Arthritis Paternal Grandmother Vision loss Maternal Grandfather Depression Paternal Grandmother Arthritis Paternal Grandfather SOCIAL HISTORY Social History Socioeconomic History Marital status: Single Tobacco Use Smoking status: Every Day Packs/day: 2 Types: Cigarettes Smokeless tobacco: Never Vaping Use Vaping Use: Every day Substances: THC Substance and Sexual Activity Alcohol use: Yes Comment: 15 shots of whiskey Drug use: Yes Types: Marijuana Comment: uses methadone, also buys pain meds on the streets Social Determinants of Health Transportation Needs: Unmet Transportation Needs (04/21/2023) PRAPARE - Transportation Lack of Transportation (Medical): Yes Lack of Transportation (Non-Medical): Yes Intimate Partner Violence: Not At Risk (04/21/2023) Humiliation, Afraid, Rape, and Kick questionnaire Fear of Current or Ex-Partner: No Emotionally Abused: No Physically Abused: No Sexually Abused: No Housing Stability: High Risk (04/21/2023) Housing Stability Vital Sign Unable to Pay for Housing in the Last Year: Yes Number of Places Lived in the Last Year: 1 Unstable Housing in the Last Year: No SCREENINGS PHYSICAL EXAM ED Triage Vitals Temp Heart Rate Resp BP 04/24/23 2322 04/24/23 2331 04/24/23233004/24/232330 36.8 C (98.3 F) 102 18 (!) 134/97 SpO2 Temp Source Heart Rate Source Patient Position 04/24/23 2331 04/24/23 2322 04/24/23 2331 04/24/232330 94 % Oral Monitor Sitting BP Location FiO2 (%) 04/24/232330 -- Right arm Physical Exam Vitals and nursing note reviewed. Constitutional: General: He is not in acute distress. Appearance: He is well-developed. He is not ill-appearing. Comments: Somewhat disheveled in appearance HENT: Head: Normocephalic and atraumatic. Mouth/Throat: Mouth: Mucous membranes are moist. Eyes: Conjunctiva/sclera: Conjunctivae normal. Cardiovascular: Rate and Rhythm: Regular rhythm. Tachycardia present. Heart sounds: No murmur heard. Pulmonary: Effort: Pulmonary effort is normal. No respiratory distress. Breath sounds: Rhonchi present. Abdominal: General: There is distension. Palpations: Abdomen is soft. Tenderness: There is no abdominal tenderness. Musculoskeletal: General: No swelling. Cervical back: Neck supple. Skin: General: Skin is warm and dry. Capillary Refill: Capillary refill takes less than 2 seconds. Neurological: Mental Status: He is alert. Psychiatric: Mood and Affect: Mood normal. DIAGNOSTIC RESULTS RADIOLOGY (Per Emergency Physician): Interpretation per the Radiologist below, if available at the time of this note: XR chest 1 view Final Result 1. Lines/Tubes/Devices/Hardware: Leads noted. Please confirm position and function of any catheters or attempted catheters clinically. 2. Lungs: Bilateral infiltrate densities concerning for pneumonia visualized. No major volume loss.. Limited due to portable technique. Consider follow-up with PA and lateral chest for persistent symptoms. 3. Pleura: No significant effusion. No significant pneumothorax. 4. Heart and mediastinum: Limited due to technique. 5. Upper abdomen: No acute process seen. 6. Thorax:No acute bony process Report Dictated on Electronically Signed By: Dev Queen MD Electronically Signed Date/Time: 04/24/2023 11:52 PM EST EKG Interpretation: Sinus tachycardia with a rate of [address] segment elevations concerning for ischemia LABS: Labs Reviewed BASIC METABOLIC PANEL - Abnormal Result Value SODIUM 132 (*) POTASSIUM 3.1 (*) CHLORIDE 99 CARBON DIOXIDE 24 UREA NITROGEN 7 (*) CREATININE 0.59 (*) GLUCOSE 98 CALCIUM 8.6 ANION GAP 9 eGFR >90.0 Narrative: Slight Hemolysis CBC WITH AUTO DIFFERENTIAL - Abnormal Auto WBC 13.6 (*) RBC 3.94 (*) Hemoglobin 11.8 (*) Hematocrit 34.3 (*) MCV 87.1 MCH 29.9 MCHC 34.4 RDW 20.0 (*) Platelets 648 (*) MPV 10.1 Neutrophils Relative 77.2 Lymphocytes Relative 13.3 (*) Monocytes Relative 7.2 Eosinophils Relative 1.2 Basophils Relative 0.4 Immature Grans % 0.7 (*) Neutrophils Absolute 10.5 (*) Lymphocytes Absolute 1.8 Monocytes Absolute 1.0 (*) Eosinophils Absolute 0.2 Basophils Absolute 0.1 Immature Grans Absolute 0.1 (*) SARS-COV-2, FLU A/B, AND RSV COMBO - Normal SARS-CoV-2 Not Detected Respiratory Syncytial Virus Not Detected Influenza A Not Detected Influenza B Not Detected Narrative: Methodology: real-time, RT-PCR The SARS-CoV-2, Flu A/B, and RSV Combo assay is intended for in vitro diagnostic use under the FDA Emergency Use Authorization (EUA). This test has not been FDA cleared or approved. In compliance with this authorization, please visit www.fda.gov/media/719850/download or www.fda.gov/media/286672/download to access the applicable information sheets. TROPONIN, WITH SERIAL REFLEX - Normal TROPONIN I <0.012 Narrative: Patients with high levels of Biotin oral intake (ie >5 mg/day) may have falsely decreased Troponin levels. NT PRO BNP - Normal NT PRO BNP 38 LIPASE - Normal LIPASE 27 ETHANOL - Normal ETHANOL IN SER/PLAS <0.010 Narrative: NOTE: This result is for medical treatment only. Analysis performed using non-forensic procedures. PROCALCITONIN TEST All other labs were within normal range or not returned as of this dictation. EMERGENCY DEPARTMENT COURSE and DIFFERENTIAL DIAGNOSIS/MDM: Vitals: Vitals: 04/24/23 2331 04/24/23 2339 04/25/23 0024 04/25/23 0025 BP: (!) 134/97 (!) 111/91 BP Location: Right arm Patient Position: Sitting Pulse: 102 97 Resp: 18 19 Temp: TempSrc: SpO2: 94% 94% Weight: 93.4 kg (206 lb) Height: 1.778 m (5' 10) Medications Administered in the ED: Medications amoxicillin-clavulanate (Augmentin) 875-125 MG per tablet 1 tablet (has no administration in time range) potassium chloride (Klor-Con) packet 40 mEq (has no administration in time range) pantoprazole (ProtoNix) 40 mg in sodium chloride (PF) 0.9 % 10 mL injection (40 mg IntraVENous Given 04/24/232358) ondansetron (Zofran) injection 4 mg (4 mg IntraVENous Given 04/24/232355) hydrOXYzine pamoate (Vistaril) capsule 25 mg (25 mg Oral Given 04/25/2316) Presents with multiple complaints as above including chest pain abdominal pain nausea vomiting PROCEDURES: Unless otherwise noted below, none Procedures Differential Diagnosis Considerations: Cardiac ischemia/ACS, pneumothorax, pneumonia, viral illness, electrolyte derangements, anemia, pancreatitis, alcohol use disorder alcohol withdrawal symptoms, gastritis, upper GI bleed Sources of History: Patient ED Course: Vital signs on arrival with mild tachycardia at a rate of 102 no hypertension orHypoxia was noted. Patient has symptoms as above. Seems that he has been seen similarly in the past and ends up leaving AGAINST MEDICAL ADVICE very frequently. Was not discharged home on any antibiotics as workup was not consistent with findings of pneumonia and even pneumonia panel was negative. Likely has some chronic changes of his lungs related to scarring from previous pulmonary infections. Due to his chest pain ongoing for as long as he is stating will repeat blood work although if troponin is negative do not believe repeat levels are warranted at this point in time even with his history. Some of his symptoms might be related to alcohol gastritis will give him Protonix, Zofran and trial a GI cocktail if he can tolerate it. Pending workup will determine disposition Reassessment: Patient's blood work resulted with mild leukocytosis of 13.6. Hemoglobin is 11.8 and actually uptrending from previous. BUN is unremarkable and less concern for true upper GI bleed although potassium is slightly decreased and replaced orally. Lipase within normal notes BNP negative and troponin negative. Ethanol level was interestingly found to be negative and is consistent with patient stated he is not drinking currently. Could have symptoms related to some alcohol withdrawal although does not want Ativan per family members. Do not believe he is at risk for acute DTs or acute alcohol withdrawal and he is following in the outpatient setting for substance use disorder. He does not want the inpatient detox and did instruct patient if he is feeling worse should return as alcohol withdrawal can be dangerous although was treated with Librium and on recent admission had positive barbiturates so less likely to have severe withdrawal related to this as there is a slow taper. Viral testing was negative. Procalcitonin level was added on as radiologist read chest x-ray with bilateral infiltrates concerning for pneumonia. Patient recently had respiratory panel done on the inpatient side which did not show any targets and did compare personally and does not appear significantly different but regardless we will treat accordingly with Augmentin at this time. Patient is in agreement with this vital signs remain normal and stable tachycardia has also improved with just observation. Will start patient on Protonix for his possible gastritis based on symptomatology. With initial troponin being negative and symptoms ongoing as long as they have been do not believe further workup is warranted and we will plan to discharge. Patient in agreement with this as well Consideration of Admission/Observation: Independent Interpretation of Tests: Diagnostic Tests Considered but not Performed: Prescription Medications Considered but not Prescribed: Chronic Conditions Affecting Care: FINAL IMPRESSION 1. Pulmonary infiltrate 2. Chest pain, unspecified type 3. Abdominal bloating 4. Epigastric pain 5. Gastritis, presence of bleeding unspecified, unspecified chronicity, unspecified gastritis type DISPOSITION Discharge 04/25/2023 12:27:29 AM PATIENT REFERRED TO: Kay Kerr [address] [place] [id number] DISCHARGE MEDICATIONS: New Prescriptions AMOXICILLIN-CLAVULANATE (AUGMENTIN) 875-125 MG TABLET Take 1 tablet by mouth in the morning and 1 tablet in the evening. Do all this for 7 days. PANTOPRAZOLE (PROTONIX) 40 MG EC TABLET Take 1 tablet (40 mg) by mouth every morning (before breakfast). Do not crush, chew, or split. (Comment: Please note this report has been produced using speech recognition software and may contain errors related to that system including errors in grammar, punctuation, and spelling, as well as words and phrases that may be inappropriate. If there are any questions or concerns please feel free to contact the dictating provider for clarification.) Lauri Dior MD (electronically signed) Emergency Medicine Provider [facility] Lauri Dior MD 04/25/23 0030 Patient ambulated to ED4 without difficulty. Mother accompanied patient. Bloating in abdomen feels like he cannot eat due to it, like it will explode. He states that the bloating has been present for months. No leg edema. Having diarrhea. Black stool intermittent over the last day. He endorses nausea and vomiting. Dry heave prior to arrival, last vomit 4 hours ago. Tuesday vomited blood prior to admission, nothing further. Trouble breathing, deep breath causes cough. Feels like he will pass out with minimal exertion. Symptoms since Tuesday. Has cough since before last Tuesday and is a little productive- yellow to clear sputum. Chest pain described as someone sitting on chest and has a rubber band across chest. Pain rated 10/10. Took ASA 81mg early today. Has been going on since admission and is lingering. He notes anxiety is through the roof. Was controlled during admission- was being given Ativan. He reports 2 beers Tuesday but none since then. He states that he is in a program for alcohol and is also on Methadone. Has cardiac history. Admitted last and discharged Tuesday for pneumonia. Was treated with IV ABX. No home going treatment. Brilinta and Carvedilol were started upon discharge. He only took one Carvedilol because they make him feel like he cannot breath. Patient placed in gown, EKG obtained, stakes player attached. IV started, labs drawn and held. Patient appears to be in no acute distress, but appears anxious. Skin is warm, dry, and pink, bruising noted from previous IV attempts. A&O x3. Respirations even and non labored. Bed in locked and low position. Call light within reach. Patient has no further needs. documented in this encounter [facility] [place] 04-25-2023 Hospital Discharge instructions Lauri Dior MD - 04/25/2023 12:27 AM EST Take the prescribed antibiotics to treat possible underlying pneumonia. If you are feeling worse or having worsening shortness of breath you can always return for repeat evaluation although this may lead to hospitalization. I do believe some of your symptoms are related to either an ulcer in your stomach or even inflammation from previous alcohol use and recommend taking the prescribed Protonix medication at least for the next 30 days as directed to see if this helps with your symptoms. You do need to follow-up with your primary care doctor to ensure your symptoms are improving. You should also talk to the addiction treatment center that you follow-up with for help with alcohol use and to hopefully stop as you have mentioned. documented in this encounter [facility] [place] 04-25-2023 Note NOTE: This result is for medical treatment only. Analysis performed using non-forensic procedures. [facility] [place] 04-24-2023 Emergency department Triage note Patient ambulated to ED4 without difficulty. Mother accompanied patient. Bloating in abdomen feels like he cannot eat due to it, like it will explode. He states that the bloating has been present for months. No leg edema. Having diarrhea. Black stool intermittent over the last day. He endorses nausea and vomiting. Dry heave prior to arrival, last vomit 4 hours ago. Tuesday vomited blood prior to admission, nothing further. Trouble breathing, deep breath causes cough. Feels like he will pass out with minimal exertion. Symptoms since Tuesday. Has cough since before last Tuesday and is a little productive- yellow to clear sputum. Chest pain described as someone sitting on chest and has a rubber band across chest. Pain rated 10/10. Took ASA 81mg early today. Has been going on since admission and is lingering. He notes anxiety is through the roof. Was controlled during admission- was being given Ativan. He reports 2 beers Tuesday but none since then. He states that he is in a program for alcohol and is also on Methadone. Has cardiac history. Admitted last and discharged Tuesday for pneumonia. Was treated with IV ABX. No home going treatment. Brilinta and Carvedilol were started upon discharge. He only took one Carvedilol because they make him feel like he cannot breath. Patient placed in gown, EKG obtained, stakes player attached. IV started, labs drawn and held. Patient appears to be in no acute distress, but appears anxious. Skin is warm, dry, and pink, bruising noted from previous IV attempts. A&O x3. Respirations even and non labored. Bed in locked and low position. Call light within reach. Patient has no further needs. [facility] 04-24-2023 Physician Emergency department Note EMERGENCY DEPARTMENT ENCOUNTER Pt Name: El Smith Birthdate 1980 Date of evaluation: 04/24/2023 ED Provider: Lauri Dior MD CHIEF COMPLAINT Chief Complaint Patient presents with Shortness of Breath HISTORY OF PRESENT ILLNESS I wore appropriate PPE for the entirety of this encounter. HPI El Smith is a 42 y.o. person who presents to the emergency department with a multitude of complaints. States that he was recently seen and admitted to the hospital for similar symptoms and they have been persistent since then.Was admitted on 04/16/2023 for alcohol withdrawal symptoms as well as possible pneumonia. At that time patient felt that he wanted to leave AGAINST MEDICAL ADVICE and was discharged. Was not started on any antibiotics as it is questionable whether or not he actually had an infiltrate and he has had pneumonia in the past requiring hospitalization and ICU level care. He was then readmitted on 19 April 2023 where he was complaining of chest pain over the past week. He had flulike symptoms at that time and respiratory panels were negative. Cardiology did evaluate patient and recommended no further workup as symptoms been persistent and mainly thought it was related to some abdominal symptoms. He states that when he went home he did detox in the hospital and drink only 2 beers on Tuesday none today and does not want to go to any inpatient detox. Does not feel like he is withdrawing although is just very anxious about his symptoms including chest pain and abdominal pain. He endorses emesis of blood on Tuesday although none since. Does describe some may be black stools although seems to be intermittent in nature since yesterday. He feels like his abdomen is bloated more so in the epigastric region. He states his chest pain is central and sometimes in the left side without radiation but does not feel like his previous heart attack and has been persistent for the last week if not longer. He states he is also having slight headache along with this. Patient is very jittery and anxious and states that his anxiety goes through the roof. Mother is present and notes that every time he is in the hospital the loaded him with Ativan. He does state he is trying to quit drinking and is going through a treatment program at [place] where he receives methadone he did receive a dose of methadone earlier in the day as well Nursing Notes were reviewed. Limitations to history: None Outside historians: None REVIEW OF SYSTEMS Review of Systems Constitutional: Positive for appetite change. Respiratory: Positive for shortness of breath. Cardiovascular: Positive for chest pain. Gastrointestinal: Positive for abdominal pain, nausea and vomiting. 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 Drug abuse ([facility]) ([facility]) Gastroenteritis 11/23/2018 Last Assessment & Plan: Predominantly vomiting; ?food poisoning vs viral gastroenteritis IV hydration PRN antiemetics Hyperlipidemia Hypertension Iritis of left eye 09/20/2018 [facility] (myocardial infarction) ([facility]) Opioid dependence, uncomplicated ([facility]) 10/27/2021 Presence of stent in right coronary artery 10/02/2021 Sciatica Spinal stenosis, lumbar Tobacco abuse SURGICAL HISTORY Past Surgical History: Procedure Laterality Date ARM SURGERY (HISTORICAL) metal rods in adam upper extremities BACK SURGERY COLONOSCOPY CORONARY ANGIOPLASTY WITH STENT PLACEMENT 09/23/2021 DORIS to proximal RCA FRACTURE SURGERY CURRENT MEDICATIONS Previous Medications ASPIRIN 81 MG EC TABLET Take 81 mg by mouth in the morning. ATORVASTATIN (LIPITOR) 40 MG TABLET Take 1 tablet (40 mg) by mouth daily. CARVEDILOL (COREG) 6.25 MG TABLET Take 1 tablet (6.25 mg) by mouth in the morning and 1 tablet (6.25 mg) in the evening. Take with meals. LISINOPRIL 5 MG TABLET Take 5 mg by mouth. METHADONE (DOLOPHINE) 10 MG/5ML SOLUTION Take 150 mg by mouth daily. TICAGRELOR (BRILINTA) 90 MG TABLET Take 1 tablet (90 mg) by mouth 2 times daily. ALLERGIES [place] FAMILY HISTORY Family History Problem Relation Name Age of Onset Atrial fibrillation Sister Hyperlipidemia Mother Obesity Mother Asthma Mother Depression Mother Obesity Sister Depression Sister Arthritis Mother High Blood Pressure Maternal Grandmother Diabetes Mother Asthma Maternal Grandmother Substance Abuse Sister Diabetes Father Stroke Paternal Grandfather Arthritis Sister High Blood Pressure Mother Vision loss Maternal Grandmother Diabetes Maternal Grandmother Stroke Maternal Grandmother Arthritis Maternal Grandfather Arthritis Maternal Grandmother Cancer Maternal Grandfather Depression Maternal Grandmother Cancer Brother Diabetes Paternal Grandfather Stroke Paternal Grandmother Diabetes Maternal Grandfather Obesity Maternal Grandmother Depression Maternal Grandfather Arthritis Paternal Grandmother Vision loss Maternal Grandfather Depression Paternal Grandmother Arthritis Paternal Grandfather SOCIAL HISTORY Social History Socioeconomic History Marital status: Single Tobacco Use Smoking status: Every Day Packs/day: 2 Types: Cigarettes Smokeless tobacco: Never Vaping Use Vaping Use: Every day Substances: THC Substance and Sexual Activity Alcohol use: Yes Comment: 15 shots of whiskey Drug use: Yes Types: Marijuana Comment: uses methadone, also buys pain meds on the streets Social Determinants of Health Transportation Needs: Unmet Transportation Needs (04/21/2023) PRAPARE - Transportation Lack of Transportation (Medical): Yes Lack of Transportation (Non-Medical): Yes Intimate Partner Violence: Not At Risk (04/21/2023) Humiliation, Afraid, Rape, and Kick questionnaire Fear of Current or Ex-Partner: No Emotionally Abused: No Physically Abused: No Sexually Abused: No Housing Stability: High Risk (04/21/2023) Housing Stability Vital Sign Unable to Pay for Housing in the Last Year: Yes Number of Places Lived in the Last Year: 1 Unstable Housing in the Last Year: No SCREENINGS PHYSICAL EXAM ED Triage Vitals Temp Heart Rate Resp BP 04/24/23 2322 04/24/23 2331 04/24/23 2331 04/24/23 2331 36.8 C (98.3 F) 102 18 (!) 134/97 SpO2 Temp Source Heart Rate Source Patient Position 04/24/23 2331 04/24/23 2322 04/24/23 2331 04/24/23 2331 94 % Oral Monitor Sitting BP Location FiO2 (%) 04/24/232330 -- Right arm Physical Exam Vitals and nursing note reviewed. Constitutional: General: He is not in acute distress. Appearance: He is well-developed. He is not ill-appearing. Comments: Somewhat disheveled in appearance HENT: Head: Normocephalic and atraumatic. Mouth/Throat: Mouth: Mucous membranes are moist. Eyes: Conjunctiva/sclera: Conjunctivae normal. Cardiovascular: Rate and Rhythm: Regular rhythm. Tachycardia present. Heart sounds: No murmur heard. Pulmonary: Effort: Pulmonary effort is normal. No respiratory distress. Breath sounds: Rhonchi present. Abdominal: General: There is distension. Palpations: Abdomen is soft. Tenderness: There is no abdominal tenderness. Musculoskeletal: General: No swelling. Cervical back: Neck supple. Skin: General: Skin is warm and dry. Capillary Refill: Capillary refill takes less than 2 seconds. Neurological: Mental Status: He is alert. Psychiatric: Mood and Affect: Mood normal. DIAGNOSTIC RESULTS RADIOLOGY (Per Emergency Physician): Interpretation per the Radiologist below, if available at the time of this note: XR chest 1 view Final Result 1. Lines/Tubes/Devices/Hardware: Leads noted. Please confirm position and function of any catheters or attempted catheters clinically. 2. Lungs: Bilateral infiltrate densities concerning for pneumonia visualized. No major volume loss.. Limited due to portable technique. Consider follow-up with PA and lateral chest for persistent symptoms. 3. Pleura: No significant effusion. No significant pneumothorax. 4. Heart and mediastinum: Limited due to technique. 5. Upper abdomen: No acute process seen. 6. Thorax:No acute bony process Report Dictated on Electronically Signed By: Dev Queen MD Electronically Signed Date/Time: 04/24/2023 11:52 PM EST EKG Interpretation: Sinus tachycardia with a rate of [address] segment elevations concerning for ischemia LABS: Labs Reviewed BASIC METABOLIC PANEL - Abnormal Result Value SODIUM 132 (*) POTASSIUM 3.1 (*) CHLORIDE 99 CARBON DIOXIDE 24 UREA NITROGEN 7 (*) CREATININE 0.59 (*) GLUCOSE 98 CALCIUM 8.6 ANION GAP 9 eGFR >90.0 Narrative: Slight Hemolysis CBC WITH AUTO DIFFERENTIAL - Abnormal Auto WBC 13.6 (*) RBC 3.94 (*) Hemoglobin 11.8 (*) Hematocrit 34.3 (*) MCV 87.1 MCH 29.9 MCHC 34.4 RDW 20.0 (*) Platelets 648 (*) MPV 10.1 Neutrophils Relative 77.2 Lymphocytes Relative 13.3 (*) Monocytes Relative 7.2 Eosinophils Relative 1.2 Basophils Relative 0.4 Immature Grans % 0.7 (*) Neutrophils Absolute 10.5 (*) Lymphocytes Absolute 1.8 Monocytes Absolute 1.0 (*) Eosinophils Absolute 0.2 Basophils Absolute 0.1 Immature Grans Absolute 0.1 (*) SARS-COV-2, FLU A/B, AND RSV COMBO - Normal SARS-CoV-2 Not Detected Respiratory Syncytial Virus Not Detected Influenza A Not Detected Influenza B Not Detected Narrative: Methodology: real-time, RT-PCR The SARS-CoV-2, Flu A/B, and RSV Combo assay is intended for in vitro diagnostic use under the FDA Emergency Use Authorization (EUA). This test has not been FDA cleared or approved. In compliance with this authorization, please visit www.fda.gov/media/041599/download or www.fda.gov/media/452077/download to access the applicable information sheets. TROPONIN, WITH SERIAL REFLEX - Normal TROPONIN I <0.012 Narrative: Patients with high levels of Biotin oral intake (ie >5 mg/day) may have falsely decreased Troponin levels. NT PRO BNP - Normal NT PRO BNP 38 LIPASE - Normal LIPASE 27 ETHANOL - Normal ETHANOL IN SER/PLAS <0.010 Narrative: NOTE: This result is for medical treatment only. Analysis performed using non-forensic procedures. PROCALCITONIN TEST All other labs were within normal range or not returned as of this dictation. EMERGENCY DEPARTMENT COURSE and DIFFERENTIAL DIAGNOSIS/MDM: Vitals: Vitals: 04/24/23 2331 04/24/23 2339 04/25/23 0024 04/25/23 0025 BP: (!) 134/97 (!) 111/91 BP Location: Right arm Patient Position: Sitting Pulse: 102 97 Resp: 18 19 Temp: TempSrc: SpO2: 94% 94% Weight: 93.4 kg (206 lb) Height: 1.778 m (5' 10) Medications Administered in the ED: Medications amoxicillin-clavulanate (Augmentin) 875-125 MG per tablet 1 tablet (has no administration in time range) potassium chloride (Klor-Con) packet 40 mEq (has no administration in time range) pantoprazole (ProtoNix) 40 mg in sodium chloride (PF) 0.9 % 10 mL injection (40 mg IntraVENous Given 04/24/23 038) ondansetron (Zofran) injection 4 mg (4 mg IntraVENous Given 04/24/23 2126) hydrOXYzine pamoate (Vistaril) capsule 25 mg (25 mg Oral Given 04/25/23 0017) Presents with multiple complaints as above including chest pain abdominal pain nausea vomiting PROCEDURES: Unless otherwise noted below, none Procedures Differential Diagnosis Considerations: Cardiac ischemia/ACS, pneumothorax, pneumonia, viral illness, electrolyte derangements, anemia, pancreatitis, alcohol use disorder alcohol withdrawal symptoms, gastritis, upper GI bleed Sources of History: Patient ED Course: Vital signs on arrival with mild tachycardia at a rate of 102 no hypertension orHypoxia was noted. Patient has symptoms as above. Seems that he has been seen similarly in the past and ends up leaving AGAINST MEDICAL ADVICE very frequently. Was not discharged home on any antibiotics as workup was not consistent with findings of pneumonia and even pneumonia panel was negative. Likely has some chronic changes of his lungs related to scarring from previous pulmonary infections. Due to his chest pain ongoing for as long as he is stating will repeat blood work although if troponin is negative do not believe repeat levels are warranted at this point in time even with his history. Some of his symptoms might be related to alcohol gastritis will give him Protonix, Zofran and trial a GI cocktail if he can tolerate it. Pending workup will determine disposition Reassessment: Patient's blood work resulted with mild leukocytosis of 13.6. Hemoglobin is 11.8 and actually uptrending from previous. BUN is unremarkable and less concern for true upper GI bleed although potassium is slightly decreased and replaced orally. Lipase within normal notes BNP negative and troponin negative. Ethanol level was interestingly found to be negative and is consistent with patient stated he is not drinking currently. Could have symptoms related to some alcohol withdrawal although does not want Ativan per family members. Do not believe he is at risk for acute DTs or acute alcohol withdrawal and he is following in the outpatient setting for substance use disorder. He does not want the inpatient detox and did instruct patient if he is feeling worse should return as alcohol withdrawal can be dangerous although was treated with Librium and on recent admission had positive barbiturates so less likely to have severe withdrawal related to this as there is a slow taper. Viral testing was negative. Procalcitonin level was added on as radiologist read chest x-ray with bilateral infiltrates concerning for pneumonia. Patient recently had respiratory panel done on the inpatient side which did not show any targets and did compare personally and does not appear significantly different but regardless we will treat accordingly with Augmentin at this time. Patient is in agreement with this vital signs remain normal and stable tachycardia has also improved with just observation. Will start patient on Protonix for his possible gastritis based on symptomatology. With initial troponin being negative and symptoms ongoing as long as they have been do not believe further workup is warranted and we will plan to discharge. Patient in agreement with this as well Consideration of Admission/Observation: Independent Interpretation of Tests: Diagnostic Tests Considered but not Performed: Prescription Medications Considered but not Prescribed: Chronic Conditions Affecting Care: FINAL IMPRESSION 1. Pulmonary infiltrate 2. Chest pain, unspecified type 3. Abdominal bloating 4. Epigastric pain 5. Gastritis, presence of bleeding unspecified, unspecified chronicity, unspecified gastritis type DISPOSITION Discharge 04/25/2023 12:27:29 AM PATIENT REFERRED TO: Kay Kerr [address] [place] [id number] DISCHARGE MEDICATIONS: New Prescriptions AMOXICILLIN-CLAVULANATE (AUGMENTIN) 875-125 MG TABLET Take 1 tablet by mouth in the morning and 1 tablet in the evening. Do all this for 7 days. PANTOPRAZOLE (PROTONIX) 40 MG EC TABLET Take 1 tablet (40 mg) by mouth every morning (before breakfast). Do not crush, chew, or split. (Comment: Please note this report has been produced using speech recognition software and may contain errors related to that system including errors in grammar, punctuation, and spelling, as well as words and phrases that may be inappropriate. If there are any questions or concerns please feel free to contact the dictating provider for clarification.) Lauri Dior MD (electronically signed) Emergency Medicine Provider [facility] Lauri Dior MD 04/25/23 0030 [facility] 04-22-2023 Note Formatting of this n ote might be different from the original. Reviewed chart. Patient admitted for alcohol withdrawal and SOB, per H&P. Patient does have active discharge order. He has been seen and assessed by addiction medicine. Did meet with patient prior to discharge. He states that he is not interested in any additional outpatient substance use treatment resources. States that he is active with [facility] and receives daily dosing. He states that he does minimal counseling there due to their lack of staff. Reports he is staying sober with opioids and agrees that his methadone treatment is working for him. Does report taking 10-12 shots daily of liquor. Reports that he is not interested in any alcohol abuse treatment options as he is not 'fully addicted to the alcohol.' Reports his treatment from [facility] is enough for him. Reports minimal sober support. No other SW needs identified. Patient reports he is waiting on his ride for discharge. SW remains available if any other needs or concerns arise. [facility] 04-22-2023 Miscellaneous Notes Reviewed chart. Patient admitted for alcohol withdrawal and SOB, per H&P. Patient does have active discharge order. He has been seen and assessed by addiction medicine. Did meet with patient prior to discharge. He states that he is not interested in any additional outpatient substance use treatment resources. States that he is active with [facility] and receives daily dosing. He states that he does minimal counseling there due to their lack of staff. Reports he is staying sober with opioids and agrees that his methadone treatment is working for him. Does report taking 10-12 shots daily of liquor. Reports that he is not interested in any alcohol abuse treatment options as he is not 'fully addicted to the alcohol.' Reports his treatment from [facility] is enough for him. Reports minimal sober support. No other SW needs identified. Patient reports he is waiting on his ride for discharge. SW remains available if any other needs or concerns arise. Problem: Knowledge Deficit Goal: Patient/family/caregiver demonstrates understanding of disease process, treatment plan, medications, and discharge instructions Outcome: Progressing Problem: Potential for Compromised Skin Integrity Goal: Skin Integrity is Maintained or Improved Outcome: Progressing Goal: Nutritional status is improving Outcome: Progressing Problem: Urinary Incontinence Goal: Perineal skin integrity is maintained or improved Outcome: Progressing The patient is Moderately Stable - Low risk of patient condition declining or worsening The patient's goals for the shift include rest The clinical goals for the shift include rest Images from the original note were not included. Spoke with patient's methadone provider, [facility]. They confirmed that he did dose at their clinic for methadone yesterday, 04/19/23 at 5:22 AM. He received 125 mg. UDS + methadone and barbiturates, but no other opioids. Fentanyl was not tested for however. I will add a fentanyl screen. ETOH + will schedule librium to manage alcohol withdrawal and avoid phenobarbital due to concern about respiratory failure. He has Ativan PRN as backup. EKG done yesterday in ED reviewed: borderline prolonged Qtc at 485 ms Consider repeating EKG later this admission to monitor QTc Due to concern for respiratory failure and borderline prolonged Qtc, I will restart methadone at half his normal dose for today. As he stabilizes I will titrate back to his normal dose. Will see patient when respiratory precautions end. documented in this encounter [facility] 04-22-2023 Consult note Associated Order (s): IP CONSULT TO ADDICTION MEDICINE Images from the original note were not included. ADDICTION MEDICINE CONSULTATION H&P Patient: El Smith Admit Date: 04/19/2023 Primary Care Physician: KAY WEAR Reason for Consultation: methadone. HISTORY OF PRESENT ILLNESS Chief Complaint Patient presents with Flu Symptoms CX Alcohol Problem El Smith is a 42 y.o. year old male with a PMH of COPD, HTN, HLD, CAD/VA with PCI, lower back pain, orthopedic injuries apparently with hardware still in place, and polysubstance use disorder currently prescribed 125 mg of methadone MAT daily thru the [facility] (confirmed by myself on 04/20/23) that was admitted for evaluation of dyspnea in the context of ongoing alcohol abuse. Respiratory status has improved since admission began and he is breathing on room air now. He is extremely resistant to discussing alcohol cessation options, and outright admits he has no plans of stopping. He was admitted back in January 2023 for the same reasons and was diagnosed treatment for Moraxella catarrhalis CAP. He was also admitted last week for the same issues, but ended up leaving AMA on 04/17/23 before getting readmitted on 04/19/23. Apparently his father being in the ICU is his biggest trigger for ongoing alcohol abuse now. Of note, patient left AMA from [facility] when admitted for PNA management in September 2022 as well. And mariela left AMA from our detox unit in August 2022. El Smith is asking to be discharged now. He has no plans to stop alcohol use. I did only give him half his normal methadone dose on 04/20/23 due to my concern that methadone was contributing to respiratory insufficiency, and also due to a QTc of 485 on admission. Repeat EKG showed improved QT c. On admission, a urine drug screen was positive for barbiturates and methadone , and a serum alcohol level was negative. Serum alcohol screen on 04/16/23 was >300. Its unclear if he had any alcoholic beverages between 04/17 when he left AMA and 04/19 when he was readmitted. He denies any withdrawal symptoms now. SUBSTANCE USE HISTORY Brief Substance Use Narrative Unable to obtain much of a history from the patient himself presently. He is known to our service and was admitted to our detox unit back in August 2022. But he left AMA before detox was completed. He has said that he is not addicted but a victim of the system and has said he drinks to alleviate pain that medical providers have been unable to assist him with. Pt has limited insight into the severity of his alcohol use and is not interested in DHRAMES[facility] tx at this time unfortunately. Current Substance Use Alcohol: 10-15 shots of liquor daily per chart review; at other times he said he was drinking 1 L of Fireball Whisky daily Amphetamines: no evidence. Benzos: no evidence. Cocaine: no evidence. Hallucinogens: no evidence. Marijuana: no evidence. Nicotine: daily. Opioids: 125 mg of methadone daily from [facility]. Treatment History Inpatient Rehab: no evidence. Chem Dep IOP: no evidence. Detoxifications: no evidence. 12 Step Meetings: no evidence. Medication Assisted Treatment: methadone thru [facility]. 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 Drug abuse ([facility]) ([facility]) Gastroenteritis 11/23/2018 Last Assessment & Plan: Predominantly vomiting; ?food poisoning vs viral gastroenteritis IV hydration PRN antiemetics Hyperlipidemia Hypertension Iritis of left eye 09/20/2018 [facility] (myocardial infarction) ([facility]) Opioid dependence, uncomplicated ([facility]) 10/27/2021 Presence of stent in right coronary artery 10/02/2021 Sciatica Spinal stenosis, lumbar Tobacco abuse Past Surgical History Past Surgical History: Procedure Laterality Date ARM SURGERY (HISTORICAL) metal rods in adam upper extremities BACK SURGERY COLONOSCOPY CORONARY ANGIOPLASTY WITH STENT PLACEMENT 09/23/2021 DORIS to proximal RCA FRACTURE SURGERY Family History Family History Problem Relation Name Age of Onset Atrial fibrillation Sister Hyperlipidemia Mother Obesity Mother Asthma Mother Depression Mother Obesity Sister Depression Sister Arthritis Mother High Blood Pressure Maternal Grandmother Diabetes Mother Asthma Maternal Grandmother Substance Abuse Sister Diabetes Father Stroke Paternal Grandfather Arthritis Sister High Blood Pressure Mother Vision loss Maternal Grandmother Diabetes Maternal Grandmother Stroke Maternal Grandmother Arthritis Maternal Grandfather Arthritis Maternal Grandmother Cancer Maternal Grandfather Depression Maternal Grandmother Cancer Brother Diabetes Paternal Grandfather Stroke Paternal Grandmother Diabetes Maternal Grandfather Obesity Maternal Grandmother Depression Maternal Grandfather Arthritis Paternal Grandmother Vision loss Maternal Grandfather Depression Paternal Grandmother Arthritis Paternal Grandfather Social Determinants of Health Tobacco Use: High Risk (04/21/2023) Patient History Smoking Tobacco Use: Every Day Smokeless Tobacco Use: Current Passive Exposure: Not on file Alcohol Use: Alcohol Misuse (04/21/2023) AUDIT-C Frequency of Alcohol Consumption: 4 or more times a week Average Number of Drinks: 10 or more Frequency of Binge Drinking: Daily or almost daily Financial Resource Strain: Not on file Food Insecurity: Not on file Transportation Needs: Unmet Transportation Needs (04/21/2023) PRAPARE - Transportation Lack of Transportation (Medical): Yes Lack of Transportation (Non-Medical): Yes Physical Activity: Not on file Stress: Not on file Social Connections: Not on file Intimate Partner Violence: Not At Risk (04/21/2023) Humiliation, Afraid, Rape, and Kick questionnaire Fear of Current or Ex-Partner: No Emotionally Abused: No Physically Abused: No Sexually Abused: No Depression: Not on file Housing Stability: High Risk (04/21/2023) Housing Stability Vital Sign Unable to Pay for Housing in the Last Year: Yes Number of Places Lived in the Last Year: 1 Unstable Housing in the Last Year: No Utilities: Not on file REVIEW OF SYSTEMS Review of Systems Respiratory: Positive for cough. Musculoskeletal: Positive for arthralgias and back pain. Psychiatric/Behavioral: Positive for agitation and behavioral problems. All other systems reviewed and are negative. EXAM Vitals Vitals: 04/21/23 2314 04/22/23 0313 04/22/23 0458 04/22/23 0804 BP: 125/84 124/84 133/80 BP Location: Left arm Right arm Patient Position: Lying Lying Pulse: 110 103 (!) 112 110 Resp: 18 18 17 16 Temp: 37 C (98.6 F) 36.4 C (97.6 F) 36.6 C (97.8 F) TempSrc: Temporal Temporal Temporal SpO2: 93% 95% 93% 97% Weight: Height: Physical Exam Vitals and nursing note reviewed. Constitutional: Appearance: Normal appearance. Cardiovascular: Rate and Rhythm: Regular rhythm. Tachycardia present. Pulmonary: Effort: Pulmonary effort is normal. Musculoskeletal: General: Normal range of motion. Skin: General: Skin is warm and dry. Neurological: Mental Status: He is alert and oriented to person, place, and time. Motor: No tremor. Psychiatric: Mood and Affect: Affect is labile and inappropriate. Behavior: Behavior is agitated. Thought Content: Thought content does not include suicidal ideation. Thought content does not include suicidal plan. Judgment: Judgment is inappropriate. IMAGING XR chest 1 view Result Date: 04/20/2023 [facility] 1980 [id number] Exam Date/Time: 04/19/2023 06:28 Procedure: XR CHEST 1 VIEW Ordering Provider: CORONA TYLER Reason For Exam: sob, eval for pneumonia AP CHEST X-RAY CLINICAL INDICATION: Cough and chest congestion TECHNIQUE: AP portable x-ray of the chest. COMPARISON: 04/16/2023 FINDINGS: Heart/Mediastinum: Within normal limits Lungs: Subtle streaky perihilar and infrahilar opacities bilaterally. No focal consolidation, pleural effusion or pneumothorax. Bones: Unremarkable Subtle perihilar streaky opacities bilaterally most likely secondary to bronchitis or viral infection. Report Dictated on Electronically Signed By: Vlad Otero Electronically Signed Date/Time: 04/19/2023 7:25 AM EST Report Dictated on Electronically Signed By: Vlad Otero MD Electronically Signed Date/Time: 04/20/2023 4:50 PM EST ECG 12 lead SINUS TACHYCARDIA PROBABLE LEFT VENTRICULAR HYPERTROPHY BORDERLINE PROLONGED QT INTERVAL NO CHANGE SINCE PREVIOUS ECG PERFORMED ON 04-16-2023 Electronically Signed On 04-19-2023 10:12:53 EST by Willian Saucedo LABS Recent Results (from the past 48 hour(s)) Respiratory culture and Stain Collection Time: 04/20/23 1:08 PM Specimen: Sputum Result Value Ref Range Respiratory culture Few respiratory mack present. Gram Stain Result Moderate Epithelial cells per low power field (A) Gram Stain Result (A) Few Polymorphonuclear leukocytes per low power field Gram Stain Result Few Gram positive cocci (A) Gram Stain Result Rare Gram positive bacilli (A) Respiratory Pathogens Panel by PCR Collection Time: 04/20/23 1:08 PM Specimen: Nasopharynx; Swab Result Value Ref Range SARS-CoV-2 Not Detected Not Detected Adenovirus Not Detected Not Detected Coronavirus HKU1 Not Detected Not Detected Coronavirus NL63 Not Detected Not Detected Coronavirus 229E Not Detected Not Detected Coronavirus OC43 Not Detected Not Detected Human Metapneumovirus Not Detected Not Detected Human Rhinovirus/Enterovirus Not Detected Not Detected Influenza A Not Detected Not Detected Influenza B Not Detected Not Detected Parainfluenza 1 Not Detected Not Detected Parainfluenza 2 Not Detected Not Detected Parainfluenza 3 Not Detected Not Detected Parainfluenza 4 Not Detected Not Detected Respiratory Syncytial Virus Not Detected Not Detected Bordetella pertussis Not Detected Not Detected Bordetella parapertussis Not Detected Not Detected Chlamydia pneumoniae Not Detected Not Detected Mycoplasma pneumoniae Not Detected Not Detected Fentanyl, urine Collection Time: 04/20/23 1:08 PM Result Value Ref Range FENTANYL SCREEN, URINE Negative Negative Pneumonia PCR Panel Collection Time: 04/20/23 1:09 PM Specimen: Sputum Result Value Ref Range Staphylococcus aureus Not Detected Not Detected Streptococcus agalactiae Not Detected Not Detected Streptococcus pneumoniae Not Detected Not Detected Streptococcus pyogenes Not Detected Not Detected Haemophilus influenzae Not Detected Not Detected Moraxella catarrhalis Not Detected Not Detected Acinetobacter baumannii complex Not Detected Not Detected Enterobacter cloacae complex Not Detected Not Detected Escherichia coli Not Detected Not Detected Klebsiella (Enterobacter) aerogenes Not Detected Not Detected Klebsiella oxytoca Not Detected Not Detected Klebsiella pneumoniae Not Detected Not Detected Proteus spp Not Detected Not Detected Pseudomonas aeruginosa Not Detected Not Detected Serratia marcescens Not Detected Not Detected Chlamydia pneumoniae Not Detected Not Detected Legionella pneumophila Not Detected Not Detected Mycoplasma pneumoniae Not Detected Not Detected Adenovirus Not Detected Not Detected Coronavirus Not Detected Not Detected Human Metapneumovirus Not Detected Not Detected Human Rhinovirus/Enterovirus Not Detected Not Detected Influenza A Not Detected Not Detected Influenza B Not Detected Not Detected Parainfluenza virus Not Detected Not Detected Respiratory Syncytial Virus Not Detected Not Detected CBC auto differential Collection Time: 04/21/23 5:29 AM Result Value Ref Range Auto WBC 10.9 (H) 3.6 - 10.7 10*3/uL RBC 3.44 (L) 4.40 - 5.90 10*6/uL Hemoglobin 10.2 (L) 13.0 - 18.0 g/dL Hematocrit 31.1 (L) 40.0 - 52.0 % MCV 90.5 80.0 - 98.0 fL MCH 29.8 26.0 - 34.0 pg MCHC 32.9 32.0 - 36.0 % RDW 24.2 (H) 11.5 - 14.5 % Platelets 214 140 - 440 10*3/uL MPV 7.1 (L) 7.4 - 12.4 fL nRBC 0.0 0.0 - 2.0 /100 WBCs Comprehensive metabolic panel Collection Time: 04/21/23 5:29 AM Result Value Ref Range SODIUM 131 (L) 135 - 145 mmol/L POTASSIUM 3.6 3.5 - 5.1 mmol/L CHLORIDE 100 98 - 107 mmol/L CARBON DIOXIDE 27 22 - 30 mmol/L ANION GAP 4 3 - 13 mmol/L UREA NITROGEN 11 9 - 20 mg/dL CREATININE 0.55 (L) 0.66 - 1.25 mg/dL GLUCOSE 110 (H) 70 - 100 mg/dL CALCIUM 7.8 (L) 8.4 - 10.4 mg/dL AST (SGOT) 97 (H) 15 - 46 U/L ALT 48 0 - 49 U/L ALKALINE PHOSPHATASE 132 (H) 38 - 126 U/L ALBUMIN 2.9 (L) 3.5 - 5.0 g/dL BILIRUBIN, TOTAL 0.4 0.2 - 1.3 mg/dL TOTAL PROTEIN 5.6 (L) 6.3 - 8.2 g/dL eGFR >90.0 >60.0 mL/min/1.73m*2 Man Differential Collection Time: 04/21/23 5:29 AM Result Value Ref Range Adjusted WBC 10.9 (H) 3.6 - 10.7 10*3/uL Neutrophils % 74 40 - 80 % Lymphocytes % 17 (L) 20 - 40 % Monocytes % 7 2 - 10 % Eosinophils % 1 1 - 6 % Basophils % 1 0 - 2 % Absolute Neutrophil Count 8.1 (H) 1.8 - 7.0 10*3/uL Lymphocytes Absolute 1.9 1.0 - 4.3 10*3/uL Monocytes Absolute 0.8 0.0 - 0.8 10*3/uL Eosinophils Absolute 0.1 0.0 - 0.5 10*3/uL Basophils Absolute 0.1 0.0 - 0.2 10*3/uL Anisocytosis Moderate (A) (none) Poikilocytes Slight (A) (none) Hypochromia Slight (A) (none) Polychromasia Moderate (A) (none) Ovalocytes Slight (A) (none) Dacryocytes Rare (A) (none) WBC Morphology Normal PLT Morphology Normal Total Counted 100 Neutrophils Manual 74 Lymphocytes Manual 17 Monocytes Manual 7 Eosinophils Manual 1 0 - 1 Basophils Manual 1 Differential Method Manual differential performed ECG 12 lead Collection Time: 04/21/23 12:01 PM Result Value Ref Range Heart Rate 99 bpm QRSD Interval 104 ms QT Interval 368 ms QTC Interval 473 ms P [place] 34 degrees QRS [place] 21 degrees T Wave [place] 47 degrees MI Interval 152 ms CBC auto differential Collection Time: 04/22/23 3:25 AM Result Value Ref Range Auto WBC 12.5 (H) 3.6 - 10.7 10*3/uL RBC 3.78 (L) 4.40 - 5.90 10*6/uL Hemoglobin 11.0 (L) 13.0 - 18.0 g/dL Hematocrit 34.0 (L) 40.0 - 52.0 % MCV 90.1 80.0 - 98.0 fL MCH 29.1 26.0 - 34.0 pg MCHC 32.3 32.0 - 36.0 % RDW 24.8 (H) 11.5 - 14.5 % Platelets 256 140 - 440 10*3/uL MPV 7.1 (L) 7.4 - 12.4 fL nRBC 0.0 0.0 - 2.0 /100 WBCs Comprehensive metabolic panel Collection Time: 04/22/23 3:25 AM Result Value Ref Range SODIUM 132 (L) 135 - 145 mmol/L POTASSIUM 3.8 3.5 - 5.1 mmol/L CHLORIDE 99 98 - 107 mmol/L CARBON DIOXIDE 27 22 - 30 mmol/L ANION GAP 5 3 - 13 mmol/L UREA NITROGEN 8 (L) 9 - 20 mg/dL CREATININE 0.54 (L) 0.66 - 1.25 mg/dL GLUCOSE 102 (H) 70 - 100 mg/dL CALCIUM 8.5 8.4 - 10.4 mg/dL AST (SGOT) 100 (H) 15 - 46 U/L ALT 56 (H) 0 - 49 U/L ALKALINE PHOSPHATASE 152 (H) 38 - 126 U/L ALBUMIN 3.3 (L) 3.5 - 5.0 g/dL BILIRUBIN, TOTAL 0.9 0.2 - 1.3 mg/dL TOTAL PROTEIN 6.4 6.3 - 8.2 g/dL eGFR >90.0 >60.0 mL/min/1.73m*2 Man Differential Collection Time: 04/22/23 3:25 AM Result Value Ref Range Adjusted WBC 12.5 (H) 3.6 - 10.7 10*3/uL Neutrophils % 78 40 - 80 % Lymphocytes % 12 (L) 20 - 40 % Monocytes % 9 2 - 10 % Basophils % 1 0 - 2 % Absolute Neutrophil Count 9.8 (H) 1.8 - 7.0 10*3/uL Lymphocytes Absolute 1.5 1.0 - 4.3 10*3/uL Monocytes Absolute 1.1 (H) 0.0 - 0.8 10*3/uL Basophils Absolute 0.1 0.0 - 0.2 10*3/uL Anisocytosis Moderate (A) (none) Poikilocytes Slight (A) (none) Polychromasia Slight (A) (none) Stomatocytes Slight (A) (none) WBC Morphology Normal PLT Morphology Normal Total Counted 100 Neutrophils Manual 78 Lymphocytes Manual 12 Monocytes Manual 9 Basophils Manual 1 Differential Method Manual differential performed MEDICATIONS Home Meds Current Outpatient Medications Medication Instructions aspirin 81 mg, Oral, Daily carvedilol (Coreg) 12.5 MG tablet No dose, route, or frequency recorded. gabapentin (Neurontin) 300 MG capsule No dose, route, or frequency recorded. hydrOXYzine HCl (Atarax) 10 MG tablet No dose, route, or frequency recorded. lamoTRIgine (LaMICtal) 25 MG tablet 2 tablets, Oral, Daily lisinopril 5 mg, Oral meloxicam (MOBIC) 15 mg, Oral methadone (DOLOPHINE) 150 mg, Oral, Daily methocarbamol (ROBAXIN) 1,000 mg, Oral, Every 8 hours scheduled mirtazapine (Remeron) 7.5 MG tablet 1 tablet, Oral, Nightly traZODone (DESYREL) 25 mg, Oral Scheduled Inpatient Meds aspirin, 81 mg, Oral, Daily atorvastatin, 40 mg, Oral, Daily carvedilol, 6.25 mg, Oral, BID WC chlordiazePOXIDE, 5 mg, Oral, q6h enoxaparin, 40 mg, SubCUTAneous, Daily famotidine, 20 mg, Oral, BID folic acid, 1 mg, Oral, Daily influenza, 0.5 mL, IntraMUSCular, Prior to discharge lamoTRIgine, 50 mg, Oral, Daily lisinopril, 5 mg, Oral, Daily melatonin, 3 mg, Oral, Nightly methadone, 125 mg, Oral, qAM AC methocarbamol, 500 mg, Oral, 3 times per day mometasone-formoterol, 2 puff, Inhalation, BID thiamine, 100 mg, Oral, Daily ticagrelor, 90 mg, Oral, BID PRN Inpatient Meds PRN medications: acetaminophen OR acetaminophen, ipratropium-albuterol, LORazepam OR LORazepam OR LORazepam OR LORazepam OR LORazepam OR LORazepam OR LORazepam OR LORazepam, naloxone, ondansetron ODT OR ondansetron, polyethylene glycol (PEG) 3350 Continuous Inpatient Infusions None ASSESSMENT & PLAN Severe opioid use disorder on methadone MAT Severe alcohol use disorder Cigarette smoker Counseled patient on biopsychosocial consequences of substance use. Encouraged professional chemical dependency treatment. Encouraged 12 step meeting attendance. SW to finalize an addiction treatment plan before discharge: He will return to the [facility] for methadone MAT. He is not interested in discussing alcohol cessation or how substance use is related to his overall health and recurrent admissions. Alcohol withdrawal - improved Methadone withdrawal - none Last use of alcohol was likely on 04/16/23 but its unclear. Librium taper to manage alcohol withdrawal symptoms. Lowering to 5 mg q 8 hours for today. Symptom-triggered Ativan PRN per CIWA protocol also ordered Thiamine/folic acid CIWA scores per unit protocol. Methadone dose was confirmed and restarted at 125 mg daily. PRN medications for withdrawal symptom management added. Chest pain, not likely cardiac in nature Respiratory insufficiency - improved Repeated admissions for PNA - but no clear infectious etiology now COPD CAD Cardiology consult IM managing Disposition: I think he is ok to discharge from an addiction medicine prescriptive especially considering he is not willing to stop drinking alcohol. He needs to be discharged today so that he can return to his methadone clinic in the morning, or he needs to be kept here until Tuesday after his methadone dose, so that he can return there Tuesday. Signing off. I reviewed the patient's medical record, and reviewed test results. I educated and then counseled the patient on any substance use disorder or chemical dependency related issues. This included a face to face evaluation and physical examination, and coordinating care on a substance use disorder treatment plan as well as documenting clinical information on the day of visit. [facility] 04-22-2023 Consult note Associated Order (s): IP CONSULT TO ADDICTION MEDICINE Images from the original note were not included. ADDICTION MEDICINE CONSULTATION H&P Patient: El Smith Admit Date: 04/19/2023 Primary Care Physician: KAY KERR Reason for Consultation: methadone. HISTORY OF PRESENT ILLNESS Chief Complaint Patient presents with Flu Symptoms CX Alcohol Problem El Smith is a 42 y.o. year old male with a PMH of COPD, HTN, HLD, CAD/VA with PCI, lower back pain, orthopedic injuries apparently with hardware still in place, and polysubstance use disorder currently prescribed 125 mg of methadone MAT daily thru the [facility] (confirmed by myself on 04/20/23) that was admitted for evaluation of dyspnea in the context of ongoing alcohol abuse. Respiratory status has improved since admission began and he is breathing on room air now. He is extremely resistant to discussing alcohol cessation options, and outright admits he has no plans of stopping. He was admitted back in January 2023 for the same reasons and was diagnosed treatment for Moraxella catarrhalis CAP. He was also admitted last week for the same issues, but ended up leaving AMA on 04/17/23 before getting readmitted on 04/19/23. Apparently his father being in the ICU is his biggest trigger for ongoing alcohol abuse now. Of note, patient left AMA from [facility] when admitted for PNA management in September 2022 as well. And mariela left AMA from our detox unit in August 2022. El Smith is asking to be discharged now. He has no plans to stop alcohol use. I did only give him half his normal methadone dose on 04/20/23 due to my concern that methadone was contributing to respiratory insufficiency, and also due to a QTc of 485 on admission. Repeat EKG showed improved QT c. On admission, a urine drug screen was positive for barbiturates and methadone , and a serum alcohol level was negative. Serum alcohol screen on 04/16/23 was >300. Its unclear if he had any alcoholic beverages between 04/17 when he left AMA and 04/19 when he was readmitted. He denies any withdrawal symptoms now. SUBSTANCE USE HISTORY Brief Substance Use Narrative Unable to obtain much of a history from the patient himself presently. He is known to our service and was admitted to our detox unit back in August 2022. But he left AMA before detox was completed. He has said that he is not addicted but a victim of the system and has said he drinks to alleviate pain that medical providers have been unable to assist him with. Pt has limited insight into the severity of his alcohol use and is not interested in DHARMESH tx at this time unfortunately. Current Substance Use Alcohol: 10-15 shots of liquor daily per chart review; at other times he said he was drinking 1 L of Fireball Whisky daily Amphetamines: no evidence. Benzos: no evidence. Cocaine: no evidence. Hallucinogens: no evidence. Marijuana: no evidence. Nicotine: daily. Opioids: 125 mg of methadone daily from [facility]. Treatment History Inpatient Rehab: no evidence. Chem Dep IOP: no evidence. Detoxifications: no evidence. 12 Step Meetings: no evidence. Medication Assisted Treatment: methadone thru [facility]. 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 Drug abuse (CMS/HCC) (HCC) Gastroenteritis 11/23/2018 Last Assessment & Plan: Predominantly vomiting; ?food poisoning vs viral gastroenteritis IV hydration PRN antiemetics Hyperlipidemia Hypertension Iritis of left eye 09/20/2018 [facility] (myocardial infarction) (HCC) Opioid dependence, uncomplicated (HCC) 10/27/2021 Presence of stent in right coronary artery 10/02/2021 Sciatica Spinal stenosis, lumbar Tobacco abuse Past Surgical History Past Surgical History: Procedure Laterality Date ARM SURGERY (HISTORICAL) metal rods in adam upper extremities BACK SURGERY COLONOSCOPY CORONARY ANGIOPLASTY WITH STENT PLACEMENT 09/23/2021 DORIS to proximal RCA FRACTURE SURGERY Family History Family History Problem Relation Name Age of Onset Atrial fibrillation Sister Hyperlipidemia Mother Obesity Mother Asthma Mother Depression Mother Obesity Sister Depression Sister Arthritis Mother High Blood Pressure Maternal Grandmother Diabetes Mother Asthma Maternal Grandmother Substance Abuse Sister Diabetes Father Stroke Paternal Grandfather Arthritis Sister High Blood Pressure Mother Vision loss Maternal Grandmother Diabetes Maternal Grandmother Stroke Maternal Grandmother Arthritis Maternal Grandfather Arthritis Maternal Grandmother Cancer Maternal Grandfather Depression Maternal Grandmother Cancer Brother Diabetes Paternal Grandfather Stroke Paternal Grandmother Diabetes Maternal Grandfather Obesity Maternal Grandmother Depression Maternal Grandfather Arthritis Paternal Grandmother Vision loss Maternal Grandfather Depression Paternal Grandmother Arthritis Paternal Grandfather Social Determinants of Health Tobacco Use: High Risk (04/21/2023) Patient History Smoking Tobacco Use: Every Day Smokeless Tobacco Use: Current Passive Exposure: Not on file Alcohol Use: Alcohol Misuse (04/21/2023) AUDIT-C Frequency of Alcohol Consumption: 4 or more times a week Average Number of Drinks: 10 or more Frequency of Binge Drinking: Daily or almost daily Financial Resource Strain: Not on file Food Insecurity: Not on file Transportation Needs: Unmet Transportation Needs (04/21/2023) PRAPARE - Transportation Lack of Transportation (Medical): Yes Lack of Transportation (Non-Medical): Yes Physical Activity: Not on file Stress: Not on file Social Connections: Not on file Intimate Partner Violence: Not At Risk (04/21/2023) Humiliation, Afraid, Rape, and Kick questionnaire Fear of Current or Ex-Partner: No Emotionally Abused: No Physically Abused: No Sexually Abused: No Depression: Not on file Housing Stability: High Risk (04/21/2023) Housing Stability Vital Sign Unable to Pay for Housing in the Last Year: Yes Number of Places Lived in the Last Year: 1 Unstable Housing in the Last Year: No Utilities: Not on file REVIEW OF SYSTEMS Review of Systems Respiratory: Positive for cough. Musculoskeletal: Positive for arthralgias and back pain. Psychiatric/Behavioral: Positive for agitation and behavioral problems. All other systems reviewed and are negative. EXAM Vitals Vitals: 04/21/23 2314 04/22/23 0313 04/22/23 0458 04/22/23 0804 BP: 125/84 124/84 133/80 BP Location: Left arm Right arm Patient Position: Lying Lying Pulse: 110 103 (!) 112 110 Resp: 18 18 17 16 Temp: 37 C (98.6 F) 36.4 C (97.6 F) 36.6 C (97.8 F) TempSrc: Temporal Temporal Temporal SpO2: 93% 95% 93% 97% Weight: Height: Physical Exam Vitals and nursing note reviewed. Constitutional: Appearance: Normal appearance. Cardiovascular: Rate and Rhythm: Regular rhythm. Tachycardia present. Pulmonary: Effort: Pulmonary effort is normal. Musculoskeletal: General: Normal range of motion. Skin: General: Skin is warm and dry. Neurological: Mental Status: He is alert and oriented to person, place, and time. Motor: No tremor. Psychiatric: Mood and Affect: Affect is labile and inappropriate. Behavior: Behavior is agitated. Thought Content: Thought content does not include suicidal ideation. Thought content does not include suicidal plan. Judgment: Judgment is inappropriate. IMAGING XR chest 1 view Result Date: 04/20/2023 Patient Name: EL SMITH : 1980 [facility]#: [id number] Exam Date/Time: 04/19/2023 06:28 Procedure: XR CHEST 1 VIEW Ordering Provider: CORONA TYLER Reason For Exam: sob, eval for pneumonia AP CHEST X-RAY CLINICAL INDICATION: Cough and chest congestion TECHNIQUE: AP portable x-ray of the chest. COMPARISON: 04/16/2023 FINDINGS: Heart/Mediastinum: Within normal limits Lungs: Subtle streaky perihilar and infrahilar opacities bilaterally. No focal consolidation, pleural effusion or pneumothorax. Bones: Unremarkable Subtle perihilar streaky opacities bilaterally most likely secondary to bronchitis or viral infection. Report Dictated on Electronically Signed By: Vlad Otero Electronically Signed Date/Time: 04/19/2023 7:25 AM EST Report Dictated on Electronically Signed By: Vlad Otero MD Electronically Signed Date/Time: 04/20/2023 4:50 PM EST ECG 12 lead SINUS TACHYCARDIA PROBABLE LEFT VENTRICULAR HYPERTROPHY BORDERLINE PROLONGED QT INTERVAL NO CHANGE SINCE PREVIOUS ECG PERFORMED ON 04-16-2023 Electronically Signed On 04-19-2023 10:12:53 EST by Willian Saucedo LABS Recent Results (from the past 48 hour(s)) Respiratory culture and Stain Collection Time: 04/20/23 1:08 PM Specimen: Sputum Result Value Ref Range Respiratory culture Few respiratory mack present. Gram Stain Result Moderate Epithelial cells per low power field (A) Gram Stain Result (A) Few Polymorphonuclear leukocytes per low power field Gram Stain Result Few Gram positive cocci (A) Gram Stain Result Rare Gram positive bacilli (A) Respiratory Pathogens Panel by PCR Collection Time: 04/20/23 1:08 PM Specimen: Nasopharynx; Swab Result Value Ref Range SARS-CoV-2 Not Detected Not Detected Adenovirus Not Detected Not Detected Coronavirus HKU1 Not Detected Not Detected Coronavirus NL63 Not Detected Not Detected Coronavirus 229E Not Detected Not Detected Coronavirus OC43 Not Detected Not Detected Human Metapneumovirus Not Detected Not Detected Human Rhinovirus/Enterovirus Not Detected Not Detected Influenza A Not Detected Not Detected Influenza B Not Detected Not Detected Parainfluenza 1 Not Detected Not Detected Parainfluenza 2 Not Detected Not Detected Parainfluenza 3 Not Detected Not Detected Parainfluenza 4 Not Detected Not Detected Respiratory Syncytial Virus Not Detected Not Detected Bordetella pertussis Not Detected Not Detected Bordetella parapertussis Not Detected Not Detected Chlamydia pneumoniae Not Detected Not Detected Mycoplasma pneumoniae Not Detected Not Detected Fentanyl, urine Collection Time: 04/20/23 1:08 PM Result Value Ref Range FENTANYL SCREEN, URINE Negative Negative Pneumonia PCR Panel Collection Time: 04/20/23 1:09 PM Specimen: Sputum Result Value Ref Range Staphylococcus aureus Not Detected Not Detected Streptococcus agalactiae Not Detected Not Detected Streptococcus pneumoniae Not Detected Not Detected Streptococcus pyogenes Not Detected Not Detected Haemophilus influenzae Not Detected Not Detected Moraxella catarrhalis Not Detected Not Detected Acinetobacter baumannii complex Not Detected Not Detected Enterobacter cloacae complex Not Detected Not Detected Escherichia coli Not Detected Not Detected Klebsiella (Enterobacter) aerogenes Not Detected Not Detected Klebsiella oxytoca Not Detected Not Detected Klebsiella pneumoniae Not Detected Not Detected Proteus spp Not Detected Not Detected Pseudomonas aeruginosa Not Detected Not Detected Serratia marcescens Not Detected Not Detected Chlamydia pneumoniae Not Detected Not Detected Legionella pneumophila Not Detected Not Detected Mycoplasma pneumoniae Not Detected Not Detected Adenovirus Not Detected Not Detected Coronavirus Not Detected Not Detected Human Metapneumovirus Not Detected Not Detected Human Rhinovirus/Enterovirus Not Detected Not Detected Influenza A Not Detected Not Detected Influenza B Not Detected Not Detected Parainfluenza virus Not Detected Not Detected Respiratory Syncytial Virus Not Detected Not Detected CBC auto differential Collection Time: 04/21/23 5:29 AM Result Value Ref Range Auto WBC 10.9 (H) 3.6 - 10.7 10*3/uL RBC 3.44 (L) 4.40 - 5.90 10*6/uL Hemoglobin 10.2 (L) 13.0 - 18.0 g/dL Hematocrit 31.1 (L) 40.0 - 52.0 % MCV 90.5 80.0 - 98.0 fL MCH 29.8 26.0 - 34.0 pg MCHC 32.9 32.0 - 36.0 % RDW 24.2 (H) 11.5 - 14.5 % Platelets 214 140 - 440 10*3/uL MPV 7.1 (L) 7.4 - 12.4 fL nRBC 0.0 0.0 - 2.0 /100 WBCs Comprehensive metabolic panel Collection Time: 04/21/23 5:29 AM Result Value Ref Range SODIUM 131 (L) 135 - 145 mmol/L POTASSIUM 3.6 3.5 - 5.1 mmol/L CHLORIDE 100 98 - 107 mmol/L CARBON DIOXIDE 27 22 - 30 mmol/L ANION GAP 4 3 - 13 mmol/L UREA NITROGEN 11 9 - 20 mg/dL CREATININE 0.55 (L) 0.66 - 1.25 mg/dL GLUCOSE 110 (H) 70 - 100 mg/dL CALCIUM 7.8 (L) 8.4 - 10.4 mg/dL AST (SGOT) 97 (H) 15 - 46 U/L ALT 48 0 - 49 U/L ALKALINE PHOSPHATASE 132 (H) 38 - 126 U/L ALBUMIN 2.9 (L) 3.5 - 5.0 g/dL BILIRUBIN, TOTAL 0.4 0.2 - 1.3 mg/dL TOTAL PROTEIN 5.6 (L) 6.3 - 8.2 g/dL eGFR >90.0 >60.0 mL/min/1.73m*2 Man Differential Collection Time: 04/21/23 5:29 AM Result Value Ref Range Adjusted WBC 10.9 (H) 3.6 - 10.7 10*3/uL Neutrophils % 74 40 - 80 % Lymphocytes % 17 (L) 20 - 40 % Monocytes % 7 2 - 10 % Eosinophils % 1 1 - 6 % Basophils % 1 0 - 2 % Absolute Neutrophil Count 8.1 (H) 1.8 - 7.0 10*3/uL Lymphocytes Absolute 1.9 1.0 - 4.3 10*3/uL Monocytes Absolute 0.8 0.0 - 0.8 10*3/uL Eosinophils Absolute 0.1 0.0 - 0.5 10*3/uL Basophils Absolute 0.1 0.0 - 0.2 10*3/uL Anisocytosis Moderate (A) (none) Poikilocytes Slight (A) (none) Hypochromia Slight (A) (none) Polychromasia Moderate (A) (none) Ovalocytes Slight (A) (none) Dacryocytes Rare (A) (none) WBC Morphology Normal PLT Morphology Normal Total Counted 100 Neutrophils Manual 74 Lymphocytes Manual 17 Monocytes Manual 7 Eosinophils Manual 1 0 - 1 Basophils Manual 1 Differential Method Manual differential performed ECG 12 lead Collection Time: 04/21/23 12:01 PM Result Value Ref Range Heart Rate 99 bpm QRSD Interval 104 ms QT Interval 368 ms QTC Interval 473 ms P [place] 34 degrees QRS [place] 21 degrees T Wave [place] 47 degrees MI Interval 152 ms CBC auto differential Collection Time: 04/22/23 3:25 AM Result Value Ref Range Auto WBC 12.5 (H) 3.6 - 10.7 10*3/uL RBC 3.78 (L) 4.40 - 5.90 10*6/uL Hemoglobin 11.0 (L) 13.0 - 18.0 g/dL Hematocrit 34.0 (L) 40.0 - 52.0 % MCV 90.1 80.0 - 98.0 fL MCH 29.1 26.0 - 34.0 pg MCHC 32.3 32.0 - 36.0 % RDW 24.8 (H) 11.5 - 14.5 % Platelets 256 140 - 440 10*3/uL MPV 7.1 (L) 7.4 - 12.4 fL nRBC 0.0 0.0 - 2.0 /100 WBCs Comprehensive metabolic panel Collection Time: 04/22/23 3:25 AM Result Value Ref Range SODIUM 132 (L) 135 - 145 mmol/L POTASSIUM 3.8 3.5 - 5.1 mmol/L CHLORIDE 99 98 - 107 mmol/L CARBON DIOXIDE 27 22 - 30 mmol/L ANION GAP 5 3 - 13 mmol/L UREA NITROGEN 8 (L) 9 - 20 mg/dL CREATININE 0.54 (L) 0.66 - 1.25 mg/dL GLUCOSE 102 (H) 70 - 100 mg/dL CALCIUM 8.5 8.4 - 10.4 mg/dL AST (SGOT) 100 (H) 15 - 46 U/L ALT 56 (H) 0 - 49 U/L ALKALINE PHOSPHATASE 152 (H) 38 - 126 U/L ALBUMIN 3.3 (L) 3.5 - 5.0 g/dL BILIRUBIN, TOTAL 0.9 0.2 - 1.3 mg/dL TOTAL PROTEIN 6.4 6.3 - 8.2 g/dL eGFR >90.0 >60.0 mL/min/1.73m*2 Man Differential Collection Time: 04/22/23 3:25 AM Result Value Ref Range Adjusted WBC 12.5 (H) 3.6 - 10.7 10*3/uL Neutrophils % 78 40 - 80 % Lymphocytes % 12 (L) 20 - 40 % Monocytes % 9 2 - 10 % Basophils % 1 0 - 2 % Absolute Neutrophil Count 9.8 (H) 1.8 - 7.0 10*3/uL Lymphocytes Absolute 1.5 1.0 - 4.3 10*3/uL Monocytes Absolute 1.1 (H) 0.0 - 0.8 10*3/uL Basophils Absolute 0.1 0.0 - 0.2 10*3/uL Anisocytosis Moderate (A) (none) Poikilocytes Slight (A) (none) Polychromasia Slight (A) (none) Stomatocytes Slight (A) (none) WBC Morphology Normal PLT Morphology Normal Total Counted 100 Neutrophils Manual 78 Lymphocytes Manual 12 Monocytes Manual 9 Basophils Manual 1 Differential Method Manual differential performed MEDICATIONS Home Meds Current Outpatient Medications Medication Instructions aspirin 81 mg, Oral, Daily carvedilol (Coreg) 12.5 MG tablet No dose, route, or frequency recorded. gabapentin (Neurontin) 300 MG capsule No dose, route, or frequency recorded. hydrOXYzine HCl (Atarax) 10 MG tablet No dose, route, or frequency recorded. lamoTRIgine (LaMICtal) 25 MG tablet 2 tablets, Oral, Daily lisinopril 5 mg, Oral meloxicam (MOBIC) 15 mg, Oral methadone (DOLOPHINE) 150 mg, Oral, Daily methocarbamol (ROBAXIN) 1,000 mg, Oral, Every 8 hours scheduled mirtazapine (Remeron) 7.5 MG tablet 1 tablet, Oral, Nightly traZODone (DESYREL) 25 mg, Oral Scheduled Inpatient Meds aspirin, 81 mg, Oral, Daily atorvastatin, 40 mg, Oral, Daily carvedilol, 6.25 mg, Oral, BID WC chlordiazePOXIDE, 5 mg, Oral, q6h enoxaparin, 40 mg, SubCUTAneous, Daily famotidine, 20 mg, Oral, BID folic acid, 1 mg, Oral, Daily influenza, 0.5 mL, IntraMUSCular, Prior to discharge lamoTRIgine, 50 mg, Oral, Daily lisinopril, 5 mg, Oral, Daily melatonin, 3 mg, Oral, Nightly methadone, 125 mg, Oral, qAM AC methocarbamol, 500 mg, Oral, 3 times per day mometasone-formoterol, 2 puff, Inhalation, BID thiamine, 100 mg, Oral, Daily ticagrelor, 90 mg, Oral, BID PRN Inpatient Meds PRN medications: acetaminophen OR acetaminophen, ipratropium-albuterol, LORazepam OR LORazepam OR LORazepam OR LORazepam OR LORazepam OR LORazepam OR LORazepam OR LORazepam, naloxone, ondansetron ODT OR ondansetron, polyethylene glycol (PEG) 3350 Continuous Inpatient Infusions None ASSESSMENT & PLAN Severe opioid use disorder on methadone MAT Severe alcohol use disorder Cigarette smoker Counseled patient on biopsychosocial consequences of substance use. Encouraged professional chemical dependency treatment. Encouraged 12 step meeting attendance. SW to finalize an addiction treatment plan before discharge: He will return to the [facility] for methadone MAT. He is not interested in discussing alcohol cessation or how substance use is related to his overall health and recurrent admissions. Alcohol withdrawal - improved Methadone withdrawal - none Last use of alcohol was likely on 04/16/23 but its unclear. Librium taper to manage alcohol withdrawal symptoms. Lowering to 5 mg q 8 hours for today. Symptom-triggered Ativan PRN per CIWA protocol also ordered Thiamine/folic acid CIWA scores per unit protocol. Methadone dose was confirmed and restarted at 125 mg daily. PRN medications for withdrawal symptom management added. Chest pain, not likely cardiac in nature Respiratory insufficiency - improved Repeated admissions for PNA - but no clear infectious etiology now COPD CAD Cardiology consult IM managing Disposition: I think he is ok to discharge from an addiction medicine prescriptive especially considering he is not willing to stop drinking alcohol. He needs to be discharged today so that he can return to his methadone clinic in the morning, or he needs to be kept here until Tuesday after his methadone dose, so that he can return there Tuesday. Signing off. I reviewed the patient's medical record, and reviewed test results. I educated and then counseled the patient on any substance use disorder or chemical dependency related issues. This included a face to face evaluation and physical examination, and coordinating care on a substance use disorder treatment plan as well as documenting clinical information on the day of visit. Associated Order(s): IP CONSULT TO CARDIOLOGY [facility] CARDIOLOGY CONSULTATION Patient Name: El Smith : 1980 Date of Service: 04/19/23 Reason for Consultation: chest pain History El Smith is a 42 y.o.year-old male chest pain He has a PMHx of alcohol use disorder, tobacco use, HTN, HLD, COPD, CAD s/p VA, depression and anxiety. He had an inferior STEMI in September last year during which antibiotic lesion was on the proximal RCA requiring a stent. Following successful stenting he continued to have chest pain with ST elevations concerning for distal embolization into microvasculature. He has a history of nonadherence to medication and follow-ups. Was recently hospitalized for anxiety and questionable pneumonia at the time he reported not taking his heart meds and he left AGAINST MEDICAL ADVICE. Patient reports that he has been having lots of chest pressure, that feels like his stomach is going to explode going on for the past week. There has been varying degrees in intensity, but he has had constant pain for 1 week. It is worse in the morning and while at rest. No radiation. Associated with nausea vomiting, diarrhea, cough. He denies fevers and chills. He thought it was related to stress and depression. The pain is different in quality as when he had STEMI 1.5 years ago. No orthopnea. Reports drinking 10-20 shots per day. He has had withdrawals complicated by DTs in the past. He sees Dr. Horton at the [facility]. Impression and Recommendations Chest pain. Atypical. My assessment is that this is noncardiac pain. This is based on patient mostly complaining of upper abdominal pain feel like his stomach is going to explode. Also this does not feel like his prior heart attack. More importantly he has had constant pain for close to 1 week with negative troponins. No further workup recommended at this time from a cardiac standpoint. Data Collection Cardiac Testin04/19/23 ECG 12-LEAD 04/19/2023 10:12 AM (Final) Impression SINUS TACHYCARDIA PROBABLE LEFT VENTRICULAR HYPERTROPHY BORDERLINE PROLONGED QT INTERVAL NO CHANGE SINCE PREVIOUS ECG PERFORMED ON 04-16-2023 Electronically Signed On 04-19-2023 10:12:53 EST by Willian Saucedo Signed by: Willian Saucedo MD on 04/19/2023 10:12 AM 01/29/23 TRANSTHORACIC ECHOCARDIOGRAM (TTE) COMPLETE (CONTRAST/BUBBLE/3D PRN) 01/30/2023 12:22 PM (Final) Interpretation Summary Limited echo due to patient non-cooperation. Findings below via limited images. No severe abnormalities noted on this study. Left Ventricle: Left ventricle size is normal. Mildly increased wall thickness. Normal left ventricular systolic function. The EF by visual approximation is 60%. Normal wall motion. Right Ventricle: Not well visualized. Right ventricle size is normal. Normal systolic function visually. 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 SurgicalHistory: has a past surgical history that includes Fracture surgery; Colonoscopy; Coronary angioplasty with stent (09/23/2021); Arm Surgery; and Back surgery. Social History: reports that he has been smoking cigarettes. He has been smoking an average of 2 packs per day. He uses smokeless tobacco. He reports current alcohol use. He reports current drug use. Drug: Marijuana. Family History: family history includes Arthritis in his maternal grandfather, maternal grandmother, mother, paternal grandfather, paternal grandmother, and sister; Asthma in his maternal grandmother and mother; Atrial fibrillation in his sister; Cancer in his brother and maternal grandfather; Depression in his maternal grandfather, maternal grandmother, mother, paternal grandmother, and sister; Diabetes in his father, maternal grandfather, maternal grandmother, mother, and paternal grandfather; High Blood Pressure in his maternal grandmother and mother; Hyperlipidemia in his mother; Obesity in his maternal grandmother, mother, and sister; Stroke in his maternal grandmother, paternal grandfather, and paternal grandmother; Substance Abuse in his sister; Vision loss in his maternal grandfather and maternal grandmother. HomeMedications: Prior to Admission medications Medication Sig Start Date End Date Taking? Authorizing Provider aspirin 81 MG EC tablet Take 81 mg by mouth in the morning. Historical Provider, carvedilol (Coreg) 12.5 MG tablet 01/14/22 Historical Provider, gabapentin (Neurontin) 300 MG capsule 01/25/23 Historical Provider, hydrOXYzine HCl (Atarax) 10 MG tablet 02/03/23 Historical Provider, lamoTRIgine (LaMICtal) 25 MG tablet Take 2 tablets by mouth daily. 09/30/21 Historical Provider, lisinopril 5 MG tablet Take 5 mg by mouth. 09/27/21 Historical Provider, meloxicam (Mobic) 15 MG tablet Take 15 mg by mouth. 09/24/22 Historical Provider, methadone (Dolophine) 10 MG/5ML solution Take 150 mg by mouth daily. Historical Provider, methocarbamol (Robaxin) 500 MG tablet Take 2 tablets (1,000 mg) by mouth in the morning and 2 tablets (1,000 mg) at noon and 2 tablets (1,000 mg) before bedtime. Do all this for 10 days. 04/24/22 05/04/22 [place], mirtazapine (Remeron) 7.5 MG tablet Take 1 tablet by mouth Nightly. 09/29/21 Historical Provider, ticagrelor (Brilinta) 90 MG tablet Take 90 mg by mouth. 09/26/21 Historical Provider, traZODone (Desyrel) 50 MG tablet Take 25 mg by mouth. 09/24/22 Historical Provider, LISINOPRIL PO Take by mouth. 04/19/23 Historical Provider, rosuvastatin (Crestor) 40 MG tablet Take 40 mg by mouth. 09/26/21 04/19/23 Historical Provider, Scheduled medications: aspirin, 81 mg, Oral, Daily atorvastatin, 40 mg, Oral, Daily carvedilol, 6.25 mg, Oral, BID [START ON 04/20/2023] cefTRIAXone, 1,000 mg, IntraVENous, q24h doxycycline, 100 mg, IntraVENous, q12h enoxaparin, 40 mg, SubCUTAneous, Daily famotidine, 20 mg, Oral, BID folic acid, 1 mg, Oral, Daily influenza, 0.5 mL, IntraMUSCular, Prior to discharge lamoTRIgine, 50 mg, Oral, Daily lisinopril, 5 mg, Oral, Daily melatonin, 3 mg, Oral, Nightly methocarbamol, 500 mg, Oral, 3 times per day mometasone-formoterol, 2 puff, Inhalation, BID thiamine, 100 mg, Oral, Daily ticagrelor, 90 mg, Oral, BID Allergies: Nickel Other relevant review of systems: Review of Systems Physical Exam: Vitals: 04/19/23 1500 04/19/23 1538 04/19/23 1652 04/19/23 1653 BP: 117/88 (!) 121/90 (!) 119/90 (!) 119/90 BP Location: Left arm Left arm Patient Position: Sitting Lying Pulse: 94 90 88 88 Resp: 26 21 Temp: TempSrc: SpO2: 96% 92% Intake/Output Summary (Last 24 hours) at 04/19/2023 1716 Last data filed at 04/19/2023 0930 Gross per 24 hour Intake 1000 ml Output -- Net 1000 ml Wt Readings from Last 4 Encounters: 04/17/23 203 lb 8 oz (92.3 kg) 02/01/23 211 lb 13.8 oz (96.1 kg) 10/10/22 200 lb (90.7 kg) 09/18/22 191 lb 6.4 oz (86.8 kg) Physical Exam General: No acute distress Neurologic: No gross neurodeficits Psychiatric: Alert and oriented x 4 Cardiac: Regular rate and rhythm Pulmonary: Clear to auscultation bilaterally Abdominal: NABS, tenderness to palpation Extremities: Warm, trace edema, normal pulses Associated attestation - Jamison Talamantes MD - 04/20/2023 8:47 AM EST I, Dr. Talamantes, saw and evaluated the patient. I personally obtained the daniels and critical portions of the history and physical exam. I reviewed the chart, the fellow's documentation, and discussed the patient with the fellow. I agree with the fellow's clinical findings, medical decision making and assessment and plan with the following changes or additions. He describes chest discomfort on a fairly continuous basis, worse with inspiration and cough over the course of a week. It reminded him of his episode of pneumonia in January 2023. It was different from his heart attack pain from 2021. His cardiac enzymes are negative. No further cardiac workup is recommended at this time. I recommend restarting his statin for secondary prevention. Major lifestyle changes including smoking cessation and detox from alcohol are critically needed. documented in this encounter [facility] [place] 04-22-2023 Hospital course Narrative Images from the original note were not included. Hospitalist Discharge Summary El Smith : 1980 Admit date: 04/19/2023 Discharge date: 04/22/2023 Admitting Physician: Shanice Helton MD Primary Care Physician: KAY KERR Visit Status: inpatient Code Status: Full Code Acute, acute on chronic, unstable/uncontrolled chronic problems/discharge diagnoses: Acute alcohol withdrawal AE COPD Severe opoid use disorder- remains on methadone that had to be titrated during admission 05/20 QTC Chest pain- hx of STEMI , cardiology saw, not cardiac , trops neg and no change to EKG Stable chronic problems affecting care, new non-acute discharge diagnoses: CAD Mood disorder Anemia HTN HPL 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 Drug abuse (CMS/HCC) ([facility]) Gastroenteritis 11/23/2018 Last Assessment & Plan: Predominantly vomiting; ?food poisoning vs viral gastroenteritis IV hydration PRN antiemetics Hyperlipidemia Hypertension Iritis of left eye 09/20/2018 [facility] (my[facility] infarction) ([facility]) Opioid dependence, uncomplicated ([facility]) 10/27/2021 Presence of stent in right coronary artery 10/02/2021 Sciatica Spinal stenosis, lumbar Tobacco abuse Procedures: Hospital Course: El presented to the ED for flu like symptoms and alcohol withdrawal. His respiratory panels were all negative. He also complained of chest pain over the past week. Seen by cardiology that ruled out cardiac source. Patient denied chest pain or shortness of breath, He was seen by addiction medicine and cleared for discharge today. See discharge diagnoses list above and medication adjustments below in med rec.The patient is discharged in improved and stable condition. Consults: IP CONSULT TO ADDICTION MEDICINE IP CONSULT TO CARDIOLOGY Discharge Instructions: Diet: Dietary Orders (From admission, onward) Start Ordered 04/19/23 1033 Adult diet Regular Diet effective now Question: Diet type Answer: Regular 04/19/23 1032 Activity: as tolerated Recommended Outpatient Tests: Disposition: Patient discharged in stable condition to Home. Greater than 31 minutes spent discharging the patient and coming up with patient discharge plan. Vitals: BP 117/81 (BP Location: Right arm, Patient Position: Sitting) Pulse 102 Temp (!) 35.8 C (96.5 F) (Temporal) Resp 18 Ht 5' 10 (1.778 m) Wt 206 lb (93.4 kg) SpO2 94% BMI 29.56 kg/m Pulse Ox: SpO2 Av.5 % Min: 93 % Max: 98 % Supplemental O2: O2 Flow Rate (L/min): 2 L/min Physical Exam HENT: Head: Normocephalic and atraumatic. Nose: Nose normal. Mouth/Throat: Mouth: Mucous membranes are moist. Eyes: Conjunctiva/sclera: Conjunctivae normal. Pupils: Pupils are equal, round, and reactive to light. Cardiovascular: Rate and Rhythm: Normal rate and regular rhythm. Pulmonary: Effort: Pulmonary effort is normal. Abdominal: General: Bowel sounds are normal. Musculoskeletal: General: Normal range of motion. Cervical back: Normal range of motion. Skin: General: Skin is warm and dry. Neurological: General: No focal deficit present. Mental Status: He is alert and oriented to person, place, and time. Psychiatric: Mood and Affect: Mood normal. Comments: Poor insight LABS: Recent Labs 04/20/23 0654 04/21/23 0529 04/22/23 0325 NA 134* 131* 132* K 3.6 3.6 3.8 CL 100 100 99 CO2 27 27 27 BUN 19 11 8* CREATININE 0.56* 0.55* 0.54* GLUCOSE 108* 110* 102* CALCIUM 7.7* 7.8* 8.5 Recent Labs 04/20/23 0847 04/21/23 0529 04/22/23 0325 WBC 10.4 10.9* 12.5* RBC 3.55* 3.44* 3.78* HGB 10.5* 10.2* 11.0* HCT 31.9* 31.1* 34.0* MCV 90.0 90.5 90.1 MCH 29.6 29.8 29.1 MCHC 32.8 32.9 32.3 RDW 24.4* 24.2* 24.8* PLT 188 214 256 MPV 7.4 7.1* 7.1* Discharge Medications: Medication List START taking these medications atorvastatin 40 MG tablet Commonly known as: Lipitor Take 1 tablet (40 mg) by mouth daily. Start taking on: April 23, 2023 CHANGE how you take these medications carvedilol 6.25 MG tablet Commonly known as: Coreg Take 1 tablet (6.25 mg) by mouth in the morning and 1 tablet (6.25 mg) in the evening. Take with meals. What changed: medication strength how much to take how to take this when to take this ticagrelor 90 MG tablet Commonly known as: Brilinta Take 1 tablet (90 mg) by mouth 2 times daily. What changed: when to take this CONTINUE taking these medications aspirin 81 MG EC tablet gabapentin 300 MG capsule Commonly known as: Neurontin hydrOXYzine HCl 10 MG tablet Commonly known as: Atarax lamoTRIgine 25 MG tablet Commonly known as: LaMICtal lisinopril 5 MG tablet meloxicam 15 MG tablet Commonly known as: Mobic methadone 10 MG/5ML solution Commonly known as: Dolophine methocarbamol 500 MG tablet Commonly known as: Robaxin Take 2 tablets (1,000 mg) by mouth in the morning and 2 tablets (1,000 mg) at noon and 2 tablets (1,000 mg) before bedtime. Do all this for 10 days. mirtazapine 7.5 MG tablet Commonly known as: Remeron traZODone 50 MG tablet Commonly known as: Desyrel Where to Get Your Medications These medications were sent to [address] [facility] [address] [address] atorvastatin 40 MG tablet carvedilol 6.25 MG tablet ticagrelor 90 MG tablet Recommended Follow-up: No follow-up provider specified. Complexity of Follow up: [] Moderate Complexity: follow up within 7-14 calendar days (73069) [x] Severe Complexity: follow up within 7 calendar days (81843) Follow up Testing, Pending results or Referrals at Transitional Care Visit: [x] yes [] no Instructions to MA: Please call patient on day after discharge (must document patient contacted within 2 business days of discharge). Follow up questions for MA: 1. Did you get medications filled and taking them as instructed from discharge? 2. Are you following your discharge instructions from your hospital stay? 3. Please confirm patient is scheduled for a follow up appointment within the above time frame. Signed: TAMICA LOBO APRN - SWITCHBOARD CLERK Division of Hospitalist Medicine [facility] 04/22/2023, 11:17 AM documented in this encounter [facility] [employer] 04-21-2023 Plan of care note Problem: Knowledge Deficit Goal: Patient/family/caregiver demonstrates understanding of disease process, treatment plan, medications, and discharge instructions Outcome: Progressing Problem: Potential for Compromised Skin Integrity Goal: Skin Integrity is Maintained or Improved Outcome: Progressing Goal: Nutritional status is improving Outcome: Progressing Problem: Urinary Incontinence Goal: Perineal skin integrity is maintained or improved Outcome: Progressing The patient is Moderately Stable - Low risk of patient condition declining or worsening The patient's goals for the shift include rest The clinical goals for the shift include rest [facility] [employer] 04-21-2023 History of Present illness Narrative Increased methadone dose to full dose of 125 mg today, now that respiratory status is improved. Repeat EKG to monitor Qtc pending Will lower librium to 5 mg q 6 hours today. Recommend he stay at least one more day, and receive tomorrow morning's methadone dose before being discharged Images from the original note were not included. Hospitalist Progress Note 04/21/2023 [id number]: Please page me ([phone]) for patient care issues. [phone]: Please page [facility] Hospitalist for any issues. Subjective: Admit Date: 04/19/2023 PCP: KAY KERR Room#: Interval History: No overnight issues.He wants to go home, states his anxiety is very high. He has not gotten his methadone yet. He stated that he was told he was past needed detox for alcohol. He denies any chest pain or tightness. Denies chest pain, sob, abdominal pain, nausea, vomiting, diarrhea, constipation, fevers, or chills. Adult diet Regular @[id number]@ 24HR INTAKE/OUTPUT: No intake or output data in the 24 hours ending 04/21/23 1148 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 Drug abuse (CMS/HCC) ([facility]) Gastroenteritis 11/23/2018 Last Assessment & Plan: Predominantly vomiting; ?food poisoning vs viral gastroenteritis IV hydration PRN antiemetics Hyperlipidemia Hypertension Iritis of left eye 09/20/2018 [facility] (myocardial infarction) ([facility]) Opioid dependence, uncomplicated ([facility]) 10/27/2021 Presence of stent in right coronary artery 10/02/2021 Sciatica Spinal stenosis, lumbar Tobacco abuse LABS: CBC: Recent Labs 04/19/23 0806 04/20/23 0847 04/21/23 0529 WBC 14.2* 10.4 10.9* RBC 3.95* 3.55* 3.44* HGB 11.6* 10.5* 10.2* HCT 35.1* 31.9* 31.1* MCV 88.8 90.0 90.5 RDW 24.7* 24.4* 24.2* PLT 224 188 214 BMP: Recent Labs 04/19/23 0806 04/20/23 0654 04/21/23 0529 NA 132* 134* 131* K 3.5 3.6 3.6 CL 94* 100 100 CO2 31* 27 27 BUN 18 19 11 CREATININE 0.63* 0.56* 0.55* GLUCOSE 117* 108* 110* CALCIUM 7.8* 7.7* 7.8* ANIONGAP 7 7 4 LIVER PROFILE: Recent Labs 04/19/23 0806 04/20/23 0654 04/21/23 0529 AST 164* 94* 97* ALT 65* 52* 48 BILITOT 1.0 0.7 0.4 ALKPHOS 120 125 132* PROT 5.9* 5.4* 5.6* PT/INR: No results for input(s): PROTIME, INR in the last 72 hours. CARDIAC ENZYMES: Recent Labs 04/19/23 0806 04/19/23 1125 04/19/23 1659 TROPONINI <0.012 <0.012 <0.012 Procalcitonin: No results found for: PROCAL COVID-19 PCR: No results for input(s): COVID19 in the last 72 hours. Objective: Vitals: BP 126/68 Pulse 97 Temp 37.1 C (98.8 F) (Oral) Resp 20 Ht 5' 10 (1.778 m) Wt 206 lb (93.4 kg) SpO2 98% BMI 29.56 kg/m Pulse Ox: SpO2 Av.3 % Min: 94 % Max: 99 % Supplemental O2: O2 Flow Rate (L/min): 2 L/min General appearance: he is anxious, sitting on side of bed HEENT: Normal cephalic, atraumatic without obvious deformity. Pupils equal, round, and reactive to light. Extra ocular muscles intact. Conjunctivae/corneas clear. Neck: Supple, with full range of motion. No jugular venous distention. Trachea midline. No lymphadenopathy. Respiratory: Normal respiratory effort at rest . Diminished bilaterally withmild wheeze Cardiovascular: Regular rate and rhythm with normal S1/S2 without murmurs, rubs or gallops. Abdomen: Soft, non-tender, non-distended with normal bowel sounds. No rebound or guarding. Musculoskeletal: CADENA, BLE edema Skin: Skin color, texture, turgor normal. No rashes or lesions. Neurologic: resting bilateral tremors, grossly intact and non focal Medications: aspirin, 81 mg, Oral, Daily atorvastatin, 40 mg, Oral, Daily carvedilol, 6.25 mg, Oral, BID WC chlordiazePOXIDE, 10 mg, Oral, q6h enoxaparin, 40 mg, SubCUTAneous, Daily famotidine, 20 mg, Oral, BID folic acid, 1 mg, Oral, Daily influenza, 0.5 mL, IntraMUSCular, Prior to discharge lamoTRIgine, 50 mg, Oral, Daily lisinopril, 5 mg, Oral, Daily melatonin, 3 mg, Oral, Nightly methadone, 125 mg, Oral, qAM AC methocarbamol, 500 mg, Oral, 3 times per day mometasone-formoterol, 2 puff, Inhalation, BID thiamine, 100 mg, Oral, Daily ticagrelor, 90 mg, Oral, BID Assessment Acute alcohol withdrawal- addiction medicine following, librium , Ativan PRN CIWA Sever opioid use disorder- continue methadone, addiction medicine managing , QTC was borderline prolonged , will repeat EKG today Chest pain/pressure- cardiology saw, non cardiac , now resolved COPD- does not appear to be in AE at this time, continues on room air , respiratory panels all negative Tobacco use - nicotine patch Normocytic anemia - stable Medical Decision Making Patient feels he is ready to go home, discussed talking to addiction medicine about when he will be ready. He is showing obvious signs of anxiety and possible withdrawal, he is getting methadone now hopefully he will be more inclined to stay now. -am labs, replace lytes prn -increase activity -DVT prophylaxis: [] Lovenox [] Heparin [] SCDs [x] Encourage ambulation [] Already on Anticoagulation Anticipated Discharge - Date - 04/21-04/22 - Location - Home - Pending the following - addiction medicine clearance Total time spent (which include face to face and non face to face encounters) : 40 minutes Toxic drug monitoring/narrow therapeutic index drug monitoring : # Drug name : # Route administered : # Method of monitoring : Extended Emergency Contact Information Primary Emergency Contact: Louise Smith Mobile Relation: Sister Preferred language: [employer] Inspector needed? No Secondary Emergency Contact: ErastoChhaya Mobile Relation: Mother DARA DALTON CNP Division of Hospitalist Medicine Inpatient Medical Services/[facility] PAGER: Epic chat Images from the original note were not included. Hospitalist Progress Note 04/20/2023 Subjective: Admit Date: 04/19/2023 PCP: KAY KERR Room#: Brief Hospital course: El is a 42 y.o. male who was admitted for SOB, flu like symptoms and alcohol withdrawal. Complaining of CP which was deemed non-cardiac by cardiology. ADM was consulted for management of methadone and withdrawal symptoms. Ativan initiate. Initial respiratory cultures showed gram positive organism Interval History: Positive showing gram positive - will follow sensitivities. PDMP reviewed - No methadone on - will wait for ADM to prescribe. Vital signs stable, with no signs of hypoxia Calcium corrected for albumin No overnight issues. Case and plan discussed with patient and bedside nurse. All questions answered. 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 Drug abuse (CMS/HCC) ([facility]) Gastroenteritis 11/23/2018 Last Assessment & Plan: Predominantly vomiting; ?food poisoning vs viral gastroenteritis IV hydration PRN antiemetics Hyperlipidemia Hypertension Iritis of left eye 09/20/2018 [facility] (my[facility] infarction) ([facility]) Opioid dependence, uncomplicated ([facility]) 10/27/2021 Presence of stent in right coronary artery 10/02/2021 Sciatica Spinal stenosis, lumbar Tobacco abuse LABS: CBC: Recent Labs 04/19/23 0806 WBC 14.2* RBC 3.95* HGB 11.6* HCT 35.1* MCV 88.8 RDW 24.7* PLT 224 BMP: Recent Labs 04/19/23 0806 04/20/23 0654 NA 132* 134* K 3.5 3.6 CL 94* 100 CO2 31* 27 BUN 18 19 CREATININE 0.63* 0.56* GLUCOSE 117* 108* CALCIUM 7.8* 7.7* ANIONGAP 7 7 LIVER PROFILE: Recent Labs 04/17/23 0820 04/19/23 0806 04/20/23 0654 AST 134* 164* 94* ALT 62* 65* 52* BILITOT 0.7 1.0 0.7 ALKPHOS 120 120 125 PROT 6.1* 5.9* 5.4* PT/INR: No results for input(s): PROTIME, INR in the last 72 hours. CARDIAC ENZYMES: Recent Labs 04/19/23 0806 04/19/23 1125 04/19/23 1659 TROPONINI <0.012 <0.012 <0.012 Procalcitonin: No results found for: PROCAL COVID-19 PCR: No results for input(s): COVID19 in the last 72 hours. Objective: Vitals: BP (!) 121/92 Pulse 87 Temp 37.2 C (98.9 F) (Temporal) Resp 17 SpO2 96% Pulse Ox: SpO2 Av.3 % Min: 91 % Max: 98 % Supplemental O2: O2 Flow Rate (L/min): 2 L/min Physical Exam Vitals and nursing note reviewed. HENT: Head: Normocephalic. Nose: No congestion or rhinorrhea. Mouth/Throat: Mouth: Mucous membranes are moist. Eyes: Conjunctiva/sclera: Conjunctivae normal. Pupils: Pupils are equal, round, and reactive to light. Cardiovascular: Rate and Rhythm: Normal rate and regular rhythm. Heart sounds: No murmur heard. Pulmonary: Breath sounds: Wheezing and rales present. Comments: Crackles to bases bilaterally with wheezing to bases Musculoskeletal: Right lower leg: Edema present. Left lower leg: Edema present. Skin: General: Skin is warm. Capillary Refill: Capillary refill takes less than 2 seconds. Coloration: Skin is pale. Neurological: General: No focal deficit present. Mental Status: He is alert and oriented to person, place, and time. Comments: Resting tremor bilaterally Medications: aspirin, 81 mg, Oral, Daily atorvastatin, 40 mg, Oral, Daily carvedilol, 6.25 mg, Oral, BID WC cefTRIAXone, 1,000 mg, IntraVENous, q24h doxycycline, 100 mg, IntraVENous, q12h enoxaparin, 40 mg, SubCUTAneous, Daily famotidine, 20 mg, Oral, BID folic acid, 1 mg, Oral, Daily influenza, 0.5 mL, IntraMUSCular, Prior to discharge lamoTRIgine, 50 mg, Oral, Daily lisinopril, 5 mg, Oral, Daily melatonin, 3 mg, Oral, Nightly methocarbamol, 500 mg, Oral, 3 times per day mometasone-formoterol, 2 puff, Inhalation, BID thiamine, 100 mg, Oral, Daily ticagrelor, 90 mg, Oral, BID Assessment Data: (CAT1) Reviewed 2 labs/studies previously ordered by me not previously counted (each=1, panels count as 1). (LOW: 2x CAT1 or independent historian MOD: 3x CAT1 or 1x CAT3 EXTENSIVE: 3x CAT1 and 1x CAT3) Acute, acute on chronic, unstable/uncontrolled chronic problems/diagnoses: SOB- discontinue antibiotics - obtained PCR COPD exacerbation - increased sputum production, Chest pain in setting of hx of acute [place] - Cardiology consulted and no cardiology cause of CP Acute alcohol withdrawal - ADM consulted, CIWA and Ativan Chronic opioid use disorder - on daily methadone Normocytic anemia - stable Stable chronic problems affecting care, new non-acute diagnoses: Coronary artery disease PTSD, Mood disorder, Cannabis abuse disorder Plan As a result of the above findings & factors, the following mgmt was pursued: - No methadone on PDMP - will have ADM prescribe. - labs stable- calcium corrected for low albumin - Recommend high protein diet. - respiratory panel PCR sent for study - Continue CIWA, with ativan prn - am labs, replace lytes prn - PT/OT/CM/SW - delirium precautions: increase activity and limit nighttime disturbances - DVT prophylaxis: enoxaparin and encourage ambulation Complexity: Acute illness with systemic symptoms (MOD). Risk: Low risk diagnostic testing or treatment (LOW). Advance Directive: Full Code Anticipated Discharge - Date - 04/21/2022 - Location - Home - Pending the following - clinical improvement Total time spent (which include face to face and non face to face encounters) : 45 minutes Toxic drug monitoring/narrow therapeutic index drug monitoring : # Drug name : NA # Route administered : NA # Method of monitoring : NA Extended Emergency Contact Information Primary Emergency Contact: Louise Smith Mobile Relation: Sister Preferred language: Indian Toys Inspector needed? No Secondary Emergency Contact: ErastoChhaya Mobile Relation: Mother Shanice Helton MD Division of Hospitalist Medicine [employer] [facility] [employer] documented in this encounter [employer] 04-21-2023 Emergency department Note Pt asking to speak with a provider. Provider paged Abby Manuel RN 04/21/23 0941 [facility] [place] 04-21-2023 Emergency department Note Pt asking to speak with a provider. Provider paged Abby Manuel RN 04/21/23 0941 Pts call light answered, pt asking for a fan which was provided. Pt also placed back on stakes player which had popped off. GÉNESIS Dill 04/20/232000 [facility] in to offer addiction support and resources. Patient and state they are linked with [facility] and no further resources needed. Patient is sleepy and not able to remain awake for conversation. At times patient is mumbling nonsensical with eyes shut. Expressed importance of treatment for alcohol use as well as to continue methadone at the clinic. Jeanette Lim RN 04/19/23 1252 Patient reports last methadone dose was this am at [facility]. Jeanette Lim RN 04/19/23 1254 Emergency Department Encounter [facility] ED Patient: El Smith : 1980 Date of Evaluation: 04/19/2023 ED Provider: Hitesh Corona DO I saw the patient as the Clinician in Triage and performed a brief history and physical exam, established acuity, and ordered appropriate tests to develop basic plan of care. Patient will be seen by MICAH, resident and/or my physician partner who will evaluate the patient. If seen by the MICAH I will manage the patient in a supervisory role and will be available for co-management and this will serve as my MICAH Supervisory note as the radiotelegrapher of record and shared attestation. I did perform a substantive portion of the visit including all aspects of the Medical Decision Making. I wore appropriate PPE for the entirety of this encounter. Brief HPI: In brief, El Smith is a 42 y.o. male that presents for feeling short of breath unwell as well as alcohol withdrawals. Patient was recently admitted on 04/16/2023 for concerns for pneumonia as well as alcohol withdrawals. Signed out AMA after 1 day. As he is feeling tremulous and anxious, last drink was yesterday. States he has been vomiting as well over the past day. Focused Physical exam: Malys in this alert and oriented 4, no acute distress, nontoxic appearing, Pulm: clear to auscultation bilaterally, Cardiac tachycardic rate and rhythm, Abdomen: soft nontender, Neuro: no focal motor or sensory deficits. Plan/MDM: Will recheck infectious workup for his recent pneumonia as well as detox labs, will administer fluids antiemetics and Ativan. Patients symptoms are consistent with sepsis, severe sepsis, or septic shock (If yes use .sepsiscoremeasure): Please see subsequent provider note for further details and disposition Comment: Please note this report has been produced using speech recognition software and may contain errors related to that system including errors in grammar, punctuation, and spelling as well as words and phrases that may be inappropriate. If there are any questions or concerns please feel free to contact the dictating provider for clarification Hitesh Corona DO Acute Care [facility] Hitesh Corona DO 04/19/23 0658 EMERGENCY DEPARTMENT ENCOUNTER Pt Name: El Smith Birthdate 1980 Date of evaluation: 04/19/2023 ED Provider: Kd Toledo DO CHIEF COMPLAINT Chief Complaint Patient presents with Flu Symptoms CX Alcohol Problem HISTORY OF PRESENT ILLNESS (Location/Symptom, Timing/Onset, Context/Setting, Quality, Duration, Modifying Factors, Severity) Note limiting factors. I wore appropriate PPE for the entirety of this encounter. HPI El Smith is a 42 y.o. male who presents to the emergency department cough, nausea, vomiting, and alcohol withdrawal symptoms. The patient reports that over the past few days he has been experiencing intermittent chest pains, cough, nausea, and vomiting. He reports that cough is productive of sputum. He admits to multiple episodes of nonbloody nonbilious emesis. He also admits to history of alcohol use disorder, he normally drinks 10-20 shots daily. He reports that his last drink was last night at 10:00 PM. He reports that he is currently experiencing tremulousness and palpitations. Of note, the patient was recently admitted to the hospital and was discharged AGAINST MEDICAL ADVICE on 04/17/2023. Nursing Notes were reviewed. Limitations to history: Outside historians: REVIEW OF SYSTEMS Review of Systems Respiratory: Positive for cough and shortness of breath. Cardiovascular: Positive for palpitations. Gastrointestinal: Positive for nausea and vomiting. Neurological: Positive for tremors. 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 Drug abuse ([facility]) ([facility]) Gastroenteritis 11/23/2018 Last Assessment & Plan: Predominantly vomiting; ?food poisoning vs viral gastroenteritis IV hydration PRN antiemetics Hyperlipidemia Hypertension Iritis of left eye 09/20/2018 [facility] (myocardial infarction) ([facility]) Opioid dependence, uncomplicated ([facility]) 10/27/2021 Presence of stent in right coronary artery 10/02/2021 Sciatica Spinal stenosis, lumbar Tobacco abuse SURGICAL HISTORY Past Surgical History: Procedure Laterality Date ARM SURGERY (HISTORICAL) metal rods in adam upper extremities BACK SURGERY COLONOSCOPY CORONARY ANGIOPLASTY WITH STENT PLACEMENT 09/23/2021 DORIS to proximal RCA FRACTURE SURGERY CURRENT MEDICATIONS Previous Medications ASPIRIN 81 MG EC TABLET Take 81 mg by mouth in the morning. CARVEDILOL (COREG) 12.5 MG TABLET GABAPENTIN (NEURONTIN) 300 MG CAPSULE HYDROXYZINE HCL (ATARAX) 10 MG TABLET LAMOTRIGINE (LAMICTAL) 25 MG TABLET Take 2 tablets by mouth daily. LISINOPRIL 5 MG TABLET Take 5 mg by mouth. LISINOPRIL PO Take by mouth. MELOXICAM (MOBIC) 15 MG TABLET Take 15 mg by mouth. METHOCARBAMOL (ROBAXIN) 500 MG TABLET Take 2 tablets (1,000 mg) by mouth in the morning and 2 tablets (1,000 mg) at noon and 2 tablets (1,000 mg) before bedtime. Do all this for 10 days. MIRTAZAPINE (REMERON) 7.5 MG TABLET Take 1 tablet by mouth Nightly. ROSUVASTATIN (CRESTOR) 40 MG TABLET Take 40 mg by mouth. TICAGRELOR (BRILINTA) 90 MG TABLET Take 90 mg by mouth. TRAZODONE (DESYREL) 50 MG TABLET Take 25 mg by mouth. ALLERGIES Nickel FAMILY HISTORY Family History Problem Relation Name Age of Onset Atrial fibrillation Sister Hyperlipidemia Mother Obesity Mother Asthma Mother Depression Mother Obesity Sister Depression Sister Arthritis Mother High Blood Pressure Maternal Grandmother Diabetes Mother Asthma Maternal Grandmother Substance Abuse Sister Diabetes Father Stroke Paternal Grandfather Arthritis Sister High Blood Pressure Mother Vision loss Maternal Grandmother Diabetes Maternal Grandmother Stroke Maternal Grandmother Arthritis Maternal Grandfather Arthritis Maternal Grandmother Cancer Maternal Grandfather Depression Maternal Grandmother Cancer Brother Diabetes Paternal Grandfather Stroke Paternal Grandmother Diabetes Maternal Grandfather Obesity Maternal Grandmother Depression Maternal Grandfather Arthritis Paternal Grandmother Vision loss Maternal Grandfather Depression Paternal Grandmother Arthritis Paternal Grandfather SOCIAL HISTORY Social History Socioeconomic History Marital status: Single Tobacco Use Smoking status: Every Day Packs/day: 2 Types: Cigarettes Smokeless tobacco: Current Vaping Use Vaping Use: Every day Substance and Sexual Activity Alcohol use: Yes Comment: 15 shots of whiskey Drug use: Yes Types: Marijuana Comment: uses methadone, also buys pain meds on the streets Social Determinants of Health Transportation Needs: No Transportation Needs (09/18/2022) PRAPARE - Transportation Lack of Transportation (Medical): No Lack of Transportation (Non-Medical): No Intimate Partner Violence: Not At Risk (04/17/2023) Humiliation, Afraid, Rape, and Kick questionnaire Fear of Current or Ex-Partner: No Emotionally Abused: No Physically Abused: No Sexually Abused: No Housing Stability: Low Risk (09/18/2022) Housing Stability Vital Sign Unable to Pay for Housing in the Last Year: No Number of Places Lived in the Last Year: 1 Unstable Housing in the Last Year: No SCREENINGS PHYSICAL EXAM ED Triage Vitals [04/19/23 0554] Temp Heart Rate Resp BP 37.2 C (98.9 F) (!) 128 19 (!) 143/101 SpO2 Temp Source Heart Rate Source Patient Position 96 % Temporal Monitor -- BP Location FiO2 (%) -- -- Physical Exam Constitutional: General: He is not in acute distress. Appearance: He is ill-appearing. HENT: Head: Normocephalic. Eyes: Conjunctiva/sclera: Conjunctivae normal. Cardiovascular: Rate and Rhythm: Regular rhythm. Tachycardia present. Pulmonary: Effort: Pulmonary effort is normal. Abdominal: General: Abdomen is flat. Tenderness: There is no abdominal tenderness. Musculoskeletal: General: No deformity. Skin: General: Skin is warm and dry. Psychiatric: Mood and Affect: Mood normal. DIAGNOSTIC RESULTS RADIOLOGY (Per Emergency Physician): Interpretation per the Radiologist below, if available at the time of this note: XR chest 1 view (Results Pending) LABS: Labs Reviewed CBC WITH AUTO DIFFERENTIAL - Abnormal Result Value Auto WBC 14.2 (*) RBC 3.95 (*) Hemoglobin 11.6 (*) Hematocrit 35.1 (*) MCV 88.8 MCH 29.4 MCHC 33.1 RDW 24.7 (*) Platelets 224 MPV 7.6 nRBC 0.0 COMPREHENSIVE METABOLIC PANEL - Abnormal SODIUM 132 (*) POTASSIUM 3.5 CHLORIDE 94 (*) CARBON DIOXIDE 31 (*) ANION GAP 7 UREA NITROGEN 18 CREATININE 0.63 (*) GLUCOSE 117 (*) CALCIUM 7.8 (*) AST (SGOT) 164 (*) ALT 65 (*) ALKALINE PHOSPHATASE 120 ALBUMIN 3.2 (*) BILIRUBIN, TOTAL 1.0 TOTAL PROTEIN 5.9 (*) eGFR >90.0 COMPLETE URINALYSIS - Abnormal Color, Urine Yellow Clarity, Urine Clear pH, Urine 7.5 Leukocytes, Urine Negative Nitrite, Urine Negative Protein, Urine 20 (*) Glucose, Urine Normal Bilirubin, Urine Negative Ketones, Urine Trace (*) Urobilinogen, Urine 3 (*) Blood, Urine Negative RBC, Urine 3-5 (*) WBC, Urine 0-2 Squamous Epithelial, Urine Negative Bacteria, Urine Negative Mucus, Urine Few SPECIFIC GRAVITY OF URINE (NUMERIC) 1.020 MANUAL DIFFERENTIAL - Abnormal Adjusted WBC 14.2 (*) Neutrophils % 83 (*) Lymphocytes % 9 (*) Monocytes % 7 Basophils % 1 Absolute Neutrophil Count 11.8 (*) Lymphocytes Absolute 1.3 Monocytes Absolute 1.0 (*) Basophils Absolute 0.1 Anisocytosis Marked (*) Poikilocytes Slight (*) Hypochromia Slight (*) Polychromasia Slight (*) Basophilic Stippling Slight (*) Target Cells Slight (*) Ovalocytes Slight (*) Dacryocytes Rare (*) Stomatocytes Slight (*) WBC Morphology Normal PLT Morphology Normal Total Counted 100 Neutrophils Manual 83 Lymphocytes Manual 9 Monocytes Manual 7 Basophils Manual 1 Differential Method Manual differential performed SARS-COV-2, FLU A/B, AND RSV COMBO - Normal SARS-CoV-2 Not Detected Respiratory Syncytial Virus Not Detected Influenza A Not Detected Influenza B Not Detected Narrative: Methodology: real-time, RT-PCR The SARS-CoV-2, Flu A/B, and RSV Combo assay is intended for in vitro diagnostic use under the FDA Emergency Use Authorization (EUA). This test has not been FDA cleared or approved. In compliance with this authorization, please visit www.fda.gov/media/478329/download or www.fda.gov/media/091932/download to access the applicable information sheets. LACTIC ACID WITH REFLEX - Normal LACTIC ACID 0.8 ETHANOL - Normal ETHANOL IN SER/PLAS <0.010 Narrative: NOTE: This result is for medical treatment only. Analysis performed using non-forensic procedures. TROPONIN, WITH SERIAL REFLEX - Normal TROPONIN I <0.012 Narrative: Patients with high levels of Biotin oral intake (ie >5 mg/day) may have falsely decreased Troponin levels. BLOOD CULTURE BLOOD CULTURE COMPLETE URINALYSIS WITH REFLEX TO CULTURE Narrative: The following orders were created for panel order Urinalysis Complete with reflex to Culture. Procedure Abnormality Status --------- ------ Complete Urinalysis[[id number]] Abnormal Final result Please view results for these tests on the individual orders. DRUGS OF ABUSE AMPHETAMINE SCREEN Negative BARBITURATES SCREEN Positive BENZODIAZEPINE SCREEN Negative COCAINE METAB. SCREEN Negative METHADONE SCREEN Positive OPIATES SCREEN Negative OXYCODONE SCREEN Negative PHENCYCLIDINE SCREEN Negative Narrative: The expected value for all of the drugs listed above is Negative. The following drugs or drug groups have been screened for by Immunoassay at the following thresholds: Amphetamine class (1000 ng/mL) Barbiturates (200 ng/mL) Benzodiazepines (200 ng/mL) Cocaine (300 ng/mL) Methadone (300 ng/mL) Opiates (300 ng/mL) Oxycodone (100 ng/mL) PCP (25 ng/mL) NOTE: These results are for medical treatment only. Analysis performed using non-forensic procedures. POSITIVE results are NOT confirmed by a more specific alternative method unless requested. If confirmation is needed, request confirmation under separate order. TROPONIN I TROPONIN I All other labs were within normal range or not returned as of this dictation. EMERGENCY DEPARTMENT COURSE and DIFFERENTIAL DIAGNOSIS/MDM: Vitals: Vitals: 04/19/23 0554 04/19/2382304/19/23826 BP: (!) 143/101 (!) 146/115 (!) 146/115 BP Location: Left arm Patient Position: Sitting Pulse: (!) 128 110 110 Resp: 19 18 Temp: 37.2 C (98.9 F) TempSrc: Temporal SpO2: 96% 95% Medications sodium chloride 0.9 % bolus 1,000 mL (1,000 mL IntraVENous New Bag 04/19/23829) thiamine (Vitamin B1) tablet 100 mg (100 mg Oral Given 04/19/23818) folic acid (Folvite) tablet 1 mg (1 mg Oral Given 04/19/23818) LORazepam (Ativan) tablet 1 mg (has no administration in time range) Or LORazepam (Ativan) injection 1 mg (has no administration in time range) Or LORazepam (Ativan) tablet 2 mg (has no administration in time range) Or LORazepam (Ativan) injection 2 mg (has no administration in time range) Or LORazepam (Ativan) tablet 3 mg (has no administration in time range) Or LORazepam (Ativan) injection 3 mg (has no administration in time range) Or LORazepam (Ativan) tablet 4 mg (has no administration in time range) Or LORazepam (Ativan) injection 4 mg (has no administration in time range) cefTRIAXone (Rocephin) 1,000 mg in sodium chloride 0.9 % 50 mL IVPB Mini-Bag Plus (has no administration in time range) doxycycline (Vibramycin) 100 mg in sodium chloride 0.9 % 100 mL IVPB (has no administration in time range) LORazepam (Ativan) injection 2 mg (2 mg IntraVENous Given 04/19/23818) ondansetron (Zofran) injection 4 mg (4 mg IntraVENous Given 04/19/23818) MDM The patient presented with chief complaint of nausea, vomiting, cough, alcohol withdrawal symptoms. The patient appears ill, tremulous, however no acute distress, is currently alert and oriented x 4. He is both tachycardic and hypertensive consistent with a history of alcohol withdrawal syndrome. I reviewed the patient's discharge summary from 04/17/2023, at that time he left AMA after being treated for alcohol withdrawal symptoms and presumably pneumonia. He does admit to a productive cough. The patient was given Ativan 2 mg IV, Ativan was also ordered per [facility] protocol. Differential diagnosis includes but is not limited to alcohol withdrawal syndrome, pneumonia, ACS, pneumothorax. To aid in management, I performed an independent interpretation of all laboratory tests, EKG, imaging, and other diagnostics ordered. Labs are significant for mild hyponatremia and hypocalcemia. The patient also has leukocytosis with tachycardia, he meets 2 SIRS criteria. I do have a suspected source of infection with pneumonia given that the patient is having cough. Chest x-ray reveals possible left lower lobe infiltrate as interpreted by me, see radiologist report for details. EKG reveals sinus tachycardia with rate of 109, no evidence of acute ischemia. Given that the patient has possible source of infection and remains tachycardic he will be admitted to medicine for possible pneumonia and alcohol withdrawal syndrome. I contacted and discussed the case with admitting physician, Dr. Helton, who is agreeable. Patient's care was impacted by Heart disease. Patient's care was significantly impacted by social determinants of health including Alcoholism and Drug addiction. I Kd Toledo DO am the radiotelegrapher of record. PROCEDURES: Unless otherwise noted below, none Procedures SEP-1 CORE MEASURE DATA SIRS Criteria Sepsis Criteria Severe Sepsis Criteria Septic Shock Criteria Must meet 2: [] Temperature > 100.4 F (38 C) or < 96.8 F (36 C) [x] HR > 90 [] RR > 20 [x] WBC > 12 or < 4 or 10% bands Must be confirmed or suspected to move forward with diagnosis of sepsis. [x] Infection Confirmed or Suspected. [] No infection present. Patient does not meet criteria for Sepsis. Must meet 1: [] Lactate > 2 or [] Signs of Organ Dysfunction: - SBP < 90 or MAP < 65 - Altered mental status - Creatinine > 2 or increased from baseline - Urine Output < 0.5 ml/kg/hr - Bilirubin > 2 - INR > 1.5 - Platelets < 100,000 - Acute Respiratory Failure as evidenced by new need for NIPPV or mechanical ventilation [] No criteria met for Severe Sepsis. Must meet 1: [] Lactate = or > 4 or [] SBP < 90 or MAP < 65 for at least two readings in the first hour after fluid bolus administration [] No criteria met for Septic Shock. No data found. Recent Labs 04/16/23 2225 04/17/23 0321 04/17/23 0820 04/19/23 0806 WBC 10.0 7.6 -- 14.2* LACTATE -- -- -- 0.8 CREATININE 0.73 0.78 -- 0.63* BILITOT -- -- 0.7 1.0 PLT 335 300 -- 224 Sepsis Identified at 0900 hours. Fluid Resuscitation Rational: Patient does not meet criteria for Severe Sepsis or Septic Shock. 30mL/kg bolus not indicated. Infection Source: Pulmonary - Community Acquired Reassessment Exam: Not applicable. Patient does not have Septic Shock. Kd Toledo DO FINAL IMPRESSION 1. Alcohol withdrawal syndrome with complication (HCC) 2. Pneumonia of left lower lobe due to infectious organism DISPOSITION Admit 04/19/2023 09:27:26 AM PATIENT REFERRED TO: No follow-up provider specified. DISCHARGE MEDICATIONS: New Prescriptions No medications on file (Comment: Please note this report has been produced using speech recognition software and may contain errors related to that system including errors in grammar, punctuation, and spelling, as well as words and phrases that may be inappropriate. If there are any questions or concerns please feel free to contact the dictating provider for clarification.) Kd Toledo DO (electronically signed) Emergency Medicine Provider Kd Toledo DO 04/19/23928 Pt presents to ED c/o cough and shortness of breath. Pt states he was just admitted for pneumonia. Pt states that he has anxiety and drinks serrano to deal with that. Pt has gone through withdraw before and feels like he is going through that now. Pt last drink was 2030 yesterday. documented in this encounter [facility] [place] 04-20-2023 Emergency department Note Pts call light answered, pt asking for a fan which was provided. Pt also placed back on stakes player which had popped off. Josey Armendariz EMT 04/20/232000 [facility] [place] 04-20-2023 Note Formatting of this n ote might be different from the original. Images from the original note were not included. Spoke with patient's methadone provider, [facility]. They confirmed that he did dose at their clinic for methadone yesterday, 04/19/23 at 5:22 AM. He received 125 mg. UDS + methadone and barbiturates, but no other opioids. Fentanyl was not tested for however. I will add a fentanyl screen. ETOH + will schedule librium to manage alcohol withdrawal and avoid phenobarbital due to concern about respiratory failure. He has Ativan PRN as backup. EKG done yesterday in ED reviewed: borderline prolonged Qtc at 485 ms Consider repeating EKG later this admission to monitor QTc Due to concern for respiratory failure and borderline prolonged Qtc, I will restart methadone at half his normal dose for today. As he stabilizes I will titrate back to his normal dose. Will see patient when respiratory precautions end. [facility] [place] 04-19-2023 Consult note Associated Order (s): IP CONSULT TO CARDIOLOGY [facility] CARDIOLOGY CONSULTATION Patient Name: El Smith : 1980 Date of Service: 04/19/23 Reason for Consultation: chest pain History El Smith is a 42 y.o.year-old male chest pain He has a PMHx of alcohol use disorder, tobacco use, HTN, HLD, COPD, CAD s/p VA, depression and anxiety. He had an inferior STEMI in September last year during which antibiotic lesion was on the proximal RCA requiring a stent. Following successful stenting he continued to have chest pain with ST elevations concerning for distal embolization into microvasculature. He has a history of nonadherence to medication and follow-ups. Was recently hospitalized for anxiety and questionable pneumonia at the time he reported not taking his heart meds and he left AGAINST MEDICAL ADVICE. Patient reports that he has been having lots of chest pressure, that feels like his stomach is going to explode going on for the past week. There has been varying degrees in intensity, but he has had constant pain for 1 week. It is worse in the morning and while at rest. No radiation. Associated with nausea vomiting, diarrhea, cough. He denies fevers and chills. He thought it was related to stress and depression. The pain is different in quality as when he had STEMI 1.5 years ago. No orthopnea. Reports drinking 10-20 shots per day. He has had withdrawals complicated by DTs in the past. He sees Dr. Horton at the [facility]. Impression and Recommendations Chest pain. Atypical. My assessment is that this is noncardiac pain. This is based on patient mostly complaining of upper abdominal pain feel like his stomach is going to explode. Also this does not feel like his prior heart attack. More importantly he has had constant pain for close to 1 week with negative troponins. No further workup recommended at this time from a cardiac standpoint. Data Collection Cardiac Testin04/19/23 ECG 12-LEAD 04/19/2023 10:12 AM (Final) Impression SINUS TACHYCARDIA PROBABLE LEFT VENTRICULAR HYPERTROPHY BORDERLINE PROLONGED QT INTERVAL NO CHANGE SINCE PREVIOUS ECG PERFORMED ON 04-16-2023 Electronically Signed On 04-19-2023 10:12:53 EST by Willian Saucedo Signed by: Willian Saucedo MD on 04/19/2023 10:12 AM 01/29/23 TRANSTHORACIC ECHOCARDIOGRAM (TTE) COMPLETE (CONTRAST/BUBBLE/3D PRN) 01/30/2023 12:22 PM (Final) Interpretation Summary Limited echo due to patient non-cooperation. Findings below via limited images. No severe abnormalities noted on this study. Left Ventricle: Left ventricle size is normal. Mildly increased wall thickness. Normal left ventricular systolic function. The EF by visual approximation is 60%. Normal wall motion. Right Ventricle: Not well visualized. Right ventricle size is normal. Normal systolic function visually. 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 SurgicalHistory: has a past surgical history that includes Fracture surgery; Colonoscopy; Coronary angioplasty with stent (09/23/2021); Arm Surgery; and Back surgery. Social History: reports that he has been smoking cigarettes. He has been smoking an average of 2 packs per day. He uses smokeless tobacco. He reports current alcohol use. He reports current drug use. Drug: Marijuana. Family History: family history includes Arthritis in his maternal grandfather, maternal grandmother, mother, paternal grandfather, paternal grandmother, and sister; Asthma in his maternal grandmother and mother; Atrial fibrillation in his sister; Cancer in his brother and maternal grandfather; Depression in his maternal grandfather, maternal grandmother, mother, paternal grandmother, and sister; Diabetes in his father, maternal grandfather, maternal grandmother, mother, and paternal grandfather; High Blood Pressure in his maternal grandmother and mother; Hyperlipidemia in his mother; Obesity in his maternal grandmother, mother, and sister; Stroke in his maternal grandmother, paternal grandfather, and paternal grandmother; Substance Abuse in his sister; Vision loss in his maternal grandfather and maternal grandmother. HomeMedications: Prior to Admission medications Medication Sig Start Date End Date Taking? Authorizing Provider aspirin 81 MG EC tablet Take 81 mg by mouth in the morning. Historical Provider, carvedilol (Coreg) 12.5 MG tablet 01/14/22 Historical Provider, gabapentin (Neurontin) 300 MG capsule 01/25/23 Historical Provider, hydrOXYzine HCl (Atarax) 10 MG tablet 02/03/23 Historical Provider, lamoTRIgine (LaMICtal) 25 MG tablet Take 2 tablets by mouth daily. 09/30/21 Historical Provider, lisinopril 5 MG tablet Take 5 mg by mouth. 09/27/21 Historical Provider, meloxicam (Mobic) 15 MG tablet Take 15 mg by mouth. 09/24/22 Historical Provider, methadone (Dolophine) 10 MG/5ML solution Take 150 mg by mouth daily. Historical Provider, methocarbamol (Robaxin) 500 MG tablet Take 2 tablets (1,000 mg) by mouth in the morning and 2 tablets (1,000 mg) at noon and 2 tablets (1,000 mg) before bedtime. Do all this for 10 days. 04/24/22 05/04/22 [place], mirtazapine (Remeron) 7.5 MG tablet Take 1 tablet by mouth Nightly. 09/29/21 Historical Provider, ticagrelor (Brilinta) 90 MG tablet Take 90 mg by mouth. 09/26/21 Historical Provider, traZODone (Desyrel) 50 MG tablet Take 25 mg by mouth. 09/24/22 Historical Provider, LISINOPRIL PO Take by mouth. 04/19/23 Historical Provider, rosuvastatin (Crestor) 40 MG tablet Take 40 mg by mouth. 09/26/21 04/19/23 Historical Provider, Scheduled medications: aspirin, 81 mg, Oral, Daily atorvastatin, 40 mg, Oral, Daily carvedilol, 6.25 mg, Oral, BID WC [START ON 04/20/2023] cefTRIAXone, 1,000 mg, IntraVENous, q24h doxycycline, 100 mg, IntraVENous, q12h enoxaparin, 40 mg, SubCUTAneous, Daily famotidine, 20 mg, Oral, BID folic acid, 1 mg, Oral, Daily influenza, 0.5 mL, IntraMUSCular, Prior to discharge lamoTRIgine, 50 mg, Oral, Daily lisinopril, 5 mg, Oral, Daily melatonin, 3 mg, Oral, Nightly methocarbamol, 500 mg, Oral, 3 times per day mometasone-formoterol, 2 puff, Inhalation, BID thiamine, 100 mg, Oral, Daily ticagrelor, 90 mg, Oral, BID Allergies: Nickel Other relevant review of systems: Review of Systems Physical Exam: Vitals: 04/19/23 1500 04/19/23 1538 04/19/23 1652 04/19/23 1653 BP: 117/88 (!) 121/90 (!) 119/90 (!) 119/90 BP Location: Left arm Left arm Patient Position: Sitting Lying Pulse: 94 90 88 88 Resp: 26 21 Temp: TempSrc: SpO2: 96% 92% Intake/Output Summary (Last 24 hours) at 04/19/2023 1716 Last data filed at 04/19/2023 0930 Gross per 24 hour Intake 1000 ml Output -- Net 1000 ml Wt Readings from Last 4 Encounters: 04/17/23 203 lb 8 oz (92.3 kg) 02/01/23 211 lb 13.8 oz (96.1 kg) 10/10/22 200 lb (90.7 kg) 09/18/22 191 lb 6.4 oz (86.8 kg) Physical Exam General: No acute distress Neurologic: No gross neurodeficits Psychiatric: Alert and oriented x 4 Cardiac: Regular rate and rhythm Pulmonary: Clear to auscultation bilaterally Abdominal: NABS, tenderness to palpation Extremities: Warm, trace edema, normal pulses Associated attestation - Jamison Talamantes MD - 04/20/2023 8:47 AM EST I, Dr. Talamantes, saw and evaluated the patient. I personally obtained the daniels and critical portions of the history and physical exam. I reviewed the chart, the fellow's documentation, and discussed the patient with the fellow. I agree with the fellow's clinical findings, medical decision making and assessment and plan with the following changes or additions. He describes chest discomfort on a fairly continuous basis, worse with inspiration and cough over the course of a week. It reminded him of his episode of pneumonia in January 2023. It was different from his heart attack pain from 2021. His cardiac enzymes are negative. No further cardiac workup is recommended at this time. I recommend restarting his statin for secondary prevention. Major lifestyle changes including smoking cessation and detox from alcohol are critically needed. [employer] Work Phone: 04-19-2023 Emergency department Note [facility] in to offer addiction support and resources. Patient and state they are linked with [facility] and no further resources needed. Patient is sleepy and not able to remain awake for conversation. At times patient is mumbling nonsensical with eyes shut. Expressed importance of treatment for alcohol use as well as to continue methadone at the clinic. Jeanette Lim RN 04/19/23 1252 [facility] 04-19-2023 Emergency department Note Patient reports last methadone dose was this am at [facility]. Jeanette Lim RN 04/19/23 1254 [facility] 04-19-2023 History and physical note Images from the original note were not included. Attending History and Physical Admit Date: 04/19/2023 PCP: KAY KERR CHIEF COMPLAINT: SOB and alcohol withdrawal Reason for Admission: Flu like symptoms with alcohol withdrawal. Chest pain History Obtained From: patient HISTORY OF PRESENT ILLNESS: El is a 42 y.o. male with past medical history below who presents with chief complaint listed above. Patient has been complaining of 4-5 day history of worsening SOB, chest pain and tremors. He describes CP as mid sternal and radiating around the chest. Associated with shortness of breath. Has a history of a heart attack and does not always take his home medications. He recently left AMA on 04/17. He describes increased nausea and tremors - drinks 10-20 shots daily, take methadone daily and works with [employer]. Denies any fever. Will admit for further evaluation and management. 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 Drug abuse (CMS/HCC) ([facility]) Gastroenteritis 11/23/2018 Last Assessment & Plan: Predominantly vomiting; ?food poisoning vs viral gastroenteritis IV hydration PRN antiemetics Hyperlipidemia Hypertension Iritis of left eye 09/20/2018 [facility] (myocardial infarction) ([facility]) Opioid dependence, uncomplicated ([facility]) 10/27/2021 Presence of stent in right coronary artery 10/02/2021 Sciatica Spinal stenosis, lumbar Tobacco abuse Past Surgical History: Past Surgical History: Procedure Laterality Date ARM SURGERY (HISTORICAL) metal rods in adam upper extremities BACK SURGERY COLONOSCOPY CORONARY ANGIOPLASTY WITH STENT PLACEMENT 09/23/2021 DORIS to proximal RCA FRACTURE SURGERY Social History: Social History Socioeconomic History Marital status: Single Spouse name: Not on file Number of children: Not on file Years of education: Not on file Highest education level: Not on file Occupational History Not on file Tobacco Use Smoking status: Every Day Packs/day: 2 Types: Cigarettes Smokeless tobacco: Current Vaping Use Vaping Use: Every day Substance and Sexual Activity Alcohol use: Yes Comment: 15 shots of whiskey Drug use: Yes Types: Marijuana Comment: uses methadone, also buys pain meds on the streets Sexual activity: Not on file Other Topics Concern Not on file Social History Narrative Not on file Social Determinants of Health Financial Resource Strain: Not on file Food Insecurity: Not on file Transportation Needs: No Transportation Needs (09/18/2022) PRAPARE - Transportation Lack of Transportation (Medical): No Lack of Transportation (Non-Medical): No Physical Activity: Not on file Stress: Not on file Social Connections: Not on file Intimate Partner Violence: Not At Risk (04/17/2023) Humiliation, Afraid, Rape, and Kick questionnaire Fear of Current or Ex-Partner: No Emotionally Abused: No Physically Abused: No Sexually Abused: No Housing Stability: Low Risk (09/18/2022) Housing Stability Vital Sign Unable to Pay for Housing in the Last Year: No Number of Places Lived in the Last Year: 1 Unstable Housing in the Last Year: No Family History: Family History Problem Relation Name Age of Onset Atrial fibrillation Sister Hyperlipidemia Mother Obesity Mother Asthma Mother Depression Mother Obesity Sister Depression Sister Arthritis Mother High Blood Pressure Maternal Grandmother Diabetes Mother Asthma Maternal Grandmother Substance Abuse Sister Diabetes Father Stroke Paternal Grandfather Arthritis Sister High Blood Pressure Mother Vision loss Maternal Grandmother Diabetes Maternal Grandmother Stroke Maternal Grandmother Arthritis Maternal Grandfather Arthritis Maternal Grandmother Cancer Maternal Grandfather Depression Maternal Grandmother Cancer Brother Diabetes Paternal Grandfather Stroke Paternal Grandmother Diabetes Maternal Grandfather Obesity Maternal Grandmother Depression Maternal Grandfather Arthritis Paternal Grandmother Vision loss Maternal Grandfather Depression Paternal Grandmother Arthritis Paternal Grandfather Medications Prior to Admission: No current facility-administered medications on file prior to encounter. Current Outpatient Medications on File Prior to Encounter Medication Sig Dispense Refill aspirin 81 MG EC tablet Take 81 mg by mouth in the morning. carvedilol (Coreg) 12.5 MG tablet gabapentin (Neurontin) 300 MG capsule hydrOXYzine HCl (Atarax) 10 MG tablet lamoTRIgine (LaMICtal) 25 MG tablet Take 2 tablets by mouth daily. lisinopril 5 MG tablet Take 5 mg by mouth. LISINOPRIL PO Take by mouth. meloxicam (Mobic) 15 MG tablet Take 15 mg by mouth. methocarbamol (Robaxin) 500 MG tablet Take 2 tablets (1,000 mg) by mouth in the morning and 2 tablets (1,000 mg) at noon and 2 tablets (1,000 mg) before bedtime. Do all this for 10 days. 60 tablet 0 mirtazapine (Remeron) 7.5 MG tablet Take 1 tablet by mouth Nightly. rosuvastatin (Crestor) 40 MG tablet Take 40 mg by mouth. ticagrelor (Brilinta) 90 MG tablet Take 90 mg by mouth. traZODone (Desyrel) 50 MG tablet Take 25 mg by mouth. Allergies: Allergies Allergen Reactions Nickel Rash REVIEW OF SYSTEMS: Constitutional: Negative for fever, chills, activity change and unexpected weight change. HEENT: Positive for congestion, postnasal drip and sneezing. Eyes: Negative for itching and visual disturbance. Respiratory: Negative for apnea, cough, choking, Positive for chest tightness, shortness of breath, Negative for wheezing and stridor. Cardiovascular: Positive for CP Gastrointestinal: Negative for abdominal pain, diarrhea and blood in stool. Positive for nausea Genitourinary: Negative for dysuria, frequency and flank pain. Musculoskeletal: Negative for myalgias and joint swelling. Skin: Negative for rash. Neurological: Negative for dizziness, tremors, seizures, syncope, facial asymmetry, speech difficulty, weakness, numbness and headaches. Hematological: Negative for adenopathy. Psychiatric/Behavioral: Negative for suicidal ideas, behavioral problems, self-injury and dysphoric mood. Vitals: BP (!) 140/110 Pulse (!) 113 Temp 37.2 C (98.9 F) (Temporal) Resp 24 SpO2 92% BMI Classification: Overweight (BMI 25.0-29.9) Pulse Ox: SpO2 Av.3 % Min: 92 % Max: 96 % Supplemental O2: PHYSICAL EXAM: Physical Exam Vitals and nursing note reviewed. Constitutional: Appearance: He is ill-appearing. HENT: Head: Normocephalic. Nose: Congestion present. Mouth/Throat: Mouth: Mucous membranes are moist. Pharynx: Oropharyngeal exudate present. Eyes: Conjunctiva/sclera: Conjunctivae normal. Pupils: Pupils are equal, round, and reactive to light. Cardiovascular: Rate and Rhythm: Regular rhythm. Tachycardia present. Heart sounds: Murmur heard. Pulmonary: Effort: No respiratory distress. Breath sounds: No stridor. No wheezing or rales. Comments: Decreased air entry to bases bilaterally. Abdominal: General: Bowel sounds are normal. There is no distension. Palpations: There is no mass. Tenderness: There is no abdominal tenderness. There is no guarding. Musculoskeletal: Right lower leg: Edema present. Left lower leg: Edema present. Comments: Non-pitting edema bilaterally Skin: Capillary Refill: Capillary refill takes less than 2 seconds. Coloration: Skin is not jaundiced or pale. Findings: Bruising present. Neurological: General: No focal deficit present. Mental Status: He is alert and oriented to person, place, and time. DATA: CBC: Recent Labs 04/16/23 2225 04/17/23 0321 04/19/23 0806 WBC 10.0 7.6 14.2* RBC 5.27 4.64 3.95* HGB 15.4 13.7 11.6* HCT 45.0 41.1 35.1* MCV 85.4 88.8 88.8 RDW 22.2* 24.9* 24.7* PLT 335 300 224 BMP: Recent Labs 04/16/23 2225 04/17/23 0321 04/19/23 0806 NA 134* 135 132* K 5.7* 3.0* 3.5 CL 93* 97* 94* CO2 30 26 31* BUN 14 13 18 CREATININE 0.73 0.78 0.63* GLUCOSE 95 150* 117* CALCIUM 8.2* 7.6* 7.8* ANIONGAP 12 12 7 LIVER PROFILE: Recent Labs 04/17/23 0820 04/19/23 0806 AST 134* 164* ALT 62* 65* BILITOT 0.7 1.0 ALKPHOS 120 120 PROT 6.1* 5.9* PT/INR: No results for input(s): PROTIME, INR in the last 72 hours. CARDIAC ENZYMES: Recent Labs 04/17/23 0321 04/17/23 0820 04/19/23 0806 TROPONINI <0.012 <0.012 <0.012 Procalcitonin: No results found for: PROCAL Urine Culture: No results found for this or any previous visit. COVID-19 PCR: No results for input(s): COVID19 in the last 72 hours. I reviewed: [x] laboratory results [x] radiographic results At the time of today's encounter. Pt was advised of the results. Data: (CAT1) Reviewed 2 labs/studies ordered by another provider not previously counted (each=1, panels count as 1). (CAT1) Ordered 2 new labs and/or studies (each=1, panels count as 1). (CAT3) Discussed with ED provider, Dr. [place], regarding patient's eval & mgmt thus far, and agree with the plan for hospitalization. (LOW: 2x CAT1 or independent historian MOD: 3x CAT1 or 1x CAT3 EXTENSIVE: 3x CAT1 and 1x CAT3) Assessment Discussed management with the ED provider and agree with hospitalization. Acute, acute on chronic, unstable/uncontrolled chronic problems/diagnoses: Flu like symptoms in setting of COPD COPD exacerbation - increased sputum production, Chest pain in setting of hx of acute VA - Cardiology consulted given history Acute alcohol withdrawal - ADM consulted, CIWA and Ativan Chronic opioid use disorder - on daily methadone Normocytic anemia - stable Stable chronic problems affecting care, new non-acute diagnoses: Coronary artery disease PTSD, Mood disorder, Cannabis abuse disorder Plan As a result of the above findings & factors, the following mgmt was pursued: - Continue empiric antibiotics - doxy and CTX, MRSA and pneumonia panel, de-escalated as needed, add prednisone 40 mg for 5 days if requires oxygen - trend troponin - continue Brilenta, ASA, cardiology consult given VA history and CP radiating to back, - ADM consult - on home methadone, CIWA, Ativan, gave one dose of phenobarb - seizure and fall precuations. - am labs, replace lytes prn - PT/OT/CM/SW - delirium precautions: increase activity - DVT prophylaxis: enoxaparin and encourage ambulation Complexity: Chronic illness with severe exacerbation, progression, or side effect of tx (HIGH). Acute illness with systemic symptoms (MOD). Risk: Admission to hospital-level care was considered or occurred (HIGH). Prescription drug/IVF/colloid was initiated, discontinued, adjusted; or reviewed with decision to maintain current orders (MOD). Care and management is being impacted by the following SDOH: alcohol or polysubstance abuse, limited access to affordable health services, and low education/difficulty understanding medical issues (MOD). Advance Directive: Prior Anticipated Discharge - Date - 04/21/2022 - Location - Home - Pending the following - clinical improvement Total time spent (which include face to face and non face to face encounters) : 75 minutes. Toxic drug monitoring/narrow therapeutic index drug monitoring : # Drug name : NA # Route administered : NA # Method of monitoring : NA Extended Emergency Contact Information Primary Emergency Contact: Louise Smith Mobile Relation: Sister Preferred language: Indian Toys Inspector needed? No Secondary Emergency Contact: ErastoChhaya Mobile Relation: Mother Shanice Helton MD Division of Hospitalist Medicine [facility] 04-19-2023 History and physical note Images from the original note were not included. Attending History and Physical Admit Date: 04/19/2023 PCP: KAY KERR CHIEF COMPLAINT: SOB and alcohol withdrawal Reason for Admission: Flu like symptoms with alcohol withdrawal. Chest pain History Obtained From: patient HISTORY OF PRESENT ILLNESS: El is a 42 y.o. male with past medical history below who presents with chief complaint listed above. Patient has been complaining of 4-5 day history of worsening SOB, chest pain and tremors. He describes CP as mid sternal and radiating around the chest. Associated with shortness of breath. Has a history of a heart attack and does not always take his home medications. He recently left AMA on 04/17. He describes increased nausea and tremors - drinks 10-20 shots daily, take methadone daily and works with [employer]. Denies any fever. Will admit for further evaluation and management. 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 Drug abuse ([facility]) ([facility]) Gastroenteritis 11/23/2018 Last Assessment & Plan: Predominantly vomiting; ?food poisoning vs viral gastroenteritis IV hydration PRN antiemetics Hyperlipidemia Hypertension Iritis of left eye 09/20/2018 [facility] (my[facility] infarction) ([facility]) Opioid dependence, uncomplicated ([facility]) 10/27/2021 Presence of stent in right coronary artery 10/02/2021 Sciatica Spinal stenosis, lumbar Tobacco abuse Past Surgical History: Past Surgical History: Procedure Laterality Date ARM SURGERY (HISTORICAL) metal rods in adam upper extremities BACK SURGERY COLONOSCOPY CORONARY ANGIOPLASTY WITH STENT PLACEMENT 09/23/2021 DORIS to proximal RCA FRACTURE SURGERY Social History: Social History Socioeconomic History Marital status: Single Spouse name: Not on file Number of children: Not on file Years of education: Not on file Highest education level: Not on file Occupational History Not on file Tobacco Use Smoking status: Every Day Packs/day: 2 Types: Cigarettes Smokeless tobacco: Current Vaping Use Vaping Use: Every day Substance and Sexual Activity Alcohol use: Yes Comment: 15 shots of whiskey Drug use: Yes Types: Marijuana Comment: uses methadone, also buys pain meds on the streets Sexual activity: Not on file Other Topics Concern Not on file Social History Narrative Not on file Social Determinants of Health Financial Resource Strain: Not on file Food Insecurity: Not on file Transportation Needs: No Transportation Needs (09/18/2022) PRAPARE - Transportation Lack of Transportation (Medical): No Lack of Transportation (Non-Medical): No Physical Activity: Not on file Stress: Not on file Social Connections: Not on file Intimate Partner Violence: Not At Risk (04/17/2023) Humiliation, Afraid, Rape, and Kick questionnaire Fear of Current or Ex-Partner: No Emotionally Abused: No Physically Abused: No Sexually Abused: No Housing Stability: Low Risk (09/18/2022) Housing Stability Vital Sign Unable to Pay for Housing in the Last Year: No Number of Places Lived in the Last Year: 1 Unstable Housing in the Last Year: No Family History: Family History Problem Relation Name Age of Onset Atrial fibrillation Sister Hyperlipidemia Mother Obesity Mother Asthma Mother Depression Mother Obesity Sister Depression Sister Arthritis Mother High Blood Pressure Maternal Grandmother Diabetes Mother Asthma Maternal Grandmother Substance Abuse Sister Diabetes Father Stroke Paternal Grandfather Arthritis Sister High Blood Pressure Mother Vision loss Maternal Grandmother Diabetes Maternal Grandmother Stroke Maternal Grandmother Arthritis Maternal Grandfather Arthritis Maternal Grandmother Cancer Maternal Grandfather Depression Maternal Grandmother Cancer Brother Diabetes Paternal Grandfather Stroke Paternal Grandmother Diabetes Maternal Grandfather Obesity Maternal Grandmother Depression Maternal Grandfather Arthritis Paternal Grandmother Vision loss Maternal Grandfather Depression Paternal Grandmother Arthritis Paternal Grandfather Medications Prior to Admission: No current facility-administered medications on file prior to encounter. Current Outpatient Medications on File Prior to Encounter Medication Sig Dispense Refill aspirin 81 MG EC tablet Take 81 mg by mouth in the morning. carvedilol (Coreg) 12.5 MG tablet gabapentin (Neurontin) 300 MG capsule hydrOXYzine HCl (Atarax) 10 MG tablet lamoTRIgine (LaMICtal) 25 MG tablet Take 2 tablets by mouth daily. lisinopril 5 MG tablet Take 5 mg by mouth. LISINOPRIL PO Take by mouth. meloxicam (Mobic) 15 MG tablet Take 15 mg by mouth. methocarbamol (Robaxin) 500 MG tablet Take 2 tablets (1,000 mg) by mouth in the morning and 2 tablets (1,000 mg) at noon and 2 tablets (1,000 mg) before bedtime. Do all this for 10 days. 60 tablet 0 mirtazapine (Remeron) 7.5 MG tablet Take 1 tablet by mouth Nightly. rosuvastatin (Crestor) 40 MG tablet Take 40 mg by mouth. ticagrelor (Brilinta) 90 MG tablet Take 90 mg by mouth. traZODone (Desyrel) 50 MG tablet Take 25 mg by mouth. Allergies: Allergies Allergen Reactions Nickel Rash REVIEW OF SYSTEMS: Constitutional: Negative for fever, chills, activity change and unexpected weight change. HEENT: Positive for congestion, postnasal drip and sneezing. Eyes: Negative for itching and visual disturbance. Respiratory: Negative for apnea, cough, choking, Positive for chest tightness, shortness of breath, Negative for wheezing and stridor. Cardiovascular: Positive for CP Gastrointestinal: Negative for abdominal pain, diarrhea and blood in stool. Positive for nausea Genitourinary: Negative for dysuria, frequency and flank pain. Musculoskeletal: Negative for myalgias and joint swelling. Skin: Negative for rash. Neurological: Negative for dizziness, tremors, seizures, syncope, facial asymmetry, speech difficulty, weakness, numbness and headaches. Hematological: Negative for adenopathy. Psychiatric/Behavioral: Negative for suicidal ideas, behavioral problems, self-injury and dysphoric mood. Vitals: BP (!) 140/110 Pulse (!) 113 Temp 37.2 C (98.9 F) (Temporal) Resp 24 SpO2 92% BMI Classification: Overweight (BMI 25.0-29.9) Pulse Ox: SpO2 Av.3 % Min: 92 % Max: 96 % Supplemental O2: PHYSICAL EXAM: Physical Exam Vitals and nursing note reviewed. Constitutional: Appearance: He is ill-appearing. HENT: Head: Normocephalic. Nose: Congestion present. Mouth/Throat: Mouth: Mucous membranes are moist. Pharynx: Oropharyngeal exudate present. Eyes: Conjunctiva/sclera: Conjunctivae normal. Pupils: Pupils are equal, round, and reactive to light. Cardiovascular: Rate and Rhythm: Regular rhythm. Tachycardia present. Heart sounds: Murmur heard. Pulmonary: Effort: No respiratory distress. Breath sounds: No stridor. No wheezing or rales. Comments: Decreased air entry to bases bilaterally. Abdominal: General: Bowel sounds are normal. There is no distension. Palpations: There is no mass. Tenderness: There is no abdominal tenderness. There is no guarding. Musculoskeletal: Right lower leg: Edema present. Left lower leg: Edema present. Comments: Non-pitting edema bilaterally Skin: Capillary Refill: Capillary refill takes less than 2 seconds. Coloration: Skin is not jaundiced or pale. Findings: Bruising present. Neurological: General: No focal deficit present. Mental Status: He is alert and oriented to person, place, and time. DATA: CBC: Recent Labs 04/16/23222404/17/2332004/19/23 0806 WBC 10.0 7.6 14.2* RBC 5.27 4.64 3.95* HGB 15.4 13.7 11.6* HCT 45.0 41.1 35.1* MCV 85.4 88.8 88.8 RDW 22.2* 24.9* 24.7* PLT 335 300 224 BMP: Recent Labs 04/16/23222404/17/2332004/19/23 0806 NA 134* 135 132* K 5.7* 3.0* 3.5 CL 93* 97* 94* CO2 30 26 31* BUN 14 13 18 CREATININE 0.73 0.78 0.63* GLUCOSE 95 150* 117* CALCIUM 8.2* 7.6* 7.8* ANIONGAP 12 12 7 LIVER PROFILE: Recent Labs 04/17/2381904/19/23 0806 AST 134* 164* ALT 62* 65* BILITOT 0.7 1.0 ALKPHOS 120 120 PROT 6.1* 5.9* PT/INR: No results for input(s): PROTIME, INR in the last 72 hours. CARDIAC ENZYMES: Recent Labs 04/17/2332004/17/23 0820 04/19/23 0806 TROPONINI <0.012 <0.012 <0.012 Procalcitonin: No results found for: PROCAL Urine Culture: No results found for this or any previous visit. COVID-19 PCR: No results for input(s): COVID19 in the last 72 hours. I reviewed: [x] laboratory results [x] radiographic results At the time of today's encounter. Pt was advised of the results. Data: (CAT1) Reviewed 2 labs/studies ordered by another provider not previously counted (each=1, panels count as 1). (CAT1) Ordered 2 new labs and/or studies (each=1, panels count as 1). (CAT3) Discussed with ED provider, Dr. Toledo, regarding patient's eval & mgmt thus far, and agree with the plan for hospitalization. (LOW: 2x CAT1 or independent historian MOD: 3x CAT1 or 1x CAT3 EXTENSIVE: 3x CAT1 and 1x CAT3) Assessment Discussed management with the ED provider and agree with hospitalization. Acute, acute on chronic, unstable/uncontrolled chronic problems/diagnoses: Flu like symptoms in setting of COPD COPD exacerbation - increased sputum production, Chest pain in setting of hx of acute VA - Cardiology consulted given history Acute alcohol withdrawal - ADM consulted, CIWA and Ativan Chronic opioid use disorder - on daily methadone Normocytic anemia - stable Stable chronic problems affecting care, new non-acute diagnoses: Coronary artery disease PTSD, Mood disorder, Cannabis abuse disorder Plan As a result of the above findings & factors, the following mgmt was pursued: - Continue empiric antibiotics - doxy and CTX, MRSA and pneumonia panel, de-escalated as needed, add prednisone 40 mg for 5 days if requires oxygen - trend troponin - continue Brilenta, ASA, cardiology consult given VA history and CP radiating to back, - ADM consult - on home methadone, CIWA, Ativan, gave one dose of phenobarb - seizure and fall precuations. - am labs, replace lytes prn - PT/OT/CM/SW - delirium precautions: increase activity - DVT prophylaxis: enoxaparin and encourage ambulation Complexity: Chronic illness with severe exacerbation, progression, or side effect of tx (HIGH). Acute illness with systemic symptoms (MOD). Risk: Admission to hospital-level care was considered or occurred (HIGH). Prescription drug/IVF/colloid was initiated, discontinued, adjusted; or reviewed with decision to maintain current orders (MOD). Care and management is being impacted by the following SDOH: alcohol or polysubstance abuse, limited access to affordable health services, and low education/difficulty understanding medical issues (MOD). Advance Directive: Prior Anticipated Discharge - Date - 04/21/2022 - Location - Home - Pending the following - clinical improvement Total time spent (which include face to face and non face to face encounters) : 75 minutes. Toxic drug monitoring/narrow therapeutic index drug monitoring : # Drug name : NA # Route administered : NA # Method of monitoring : NA Extended Emergency Contact Information Primary Emergency Contact: Louise Smith Mobile Relation: Sister Preferred language: Indian [employer] Inspector needed? No Secondary Emergency Contact: Chhaya Maurer Mobile Relation: Mother Shanice Helton MD Division of Hospitalist Medicine [facility] documented in this encounter [facility] [place] 04-19-2023 Note NOTE: This result is for medical treatment only. Analysis performed using non-forensic procedures. [facility] [place] 04-19-2023 Emergency department Triage note Pt presents to ED c/o cough and shortness of breath. Pt states he was just admitted for pneumonia. Pt states that he has anxiety and drinks serrano to deal with that. Pt has gone through withdraw before and feels like he is going through that now. Pt last drink was 2030 yesterday. [facility] [place] 04-19-2023 Physician Emergency department Note Emergency Department Encounter [facility] ED Patient: El Smith : 1980 Date of Evaluation: 04/19/2023 ED Provider: Hitesh Corona DO I saw the patient as the Clinician in Triage and performed a brief history and physical exam, established acuity, and ordered appropriate tests to develop basic plan of care. Patient will be seen by MICAH, resident and/or my physician partner who will evaluate the patient. If seen by the MICAH I will manage the patient in a supervisory role and will be available for co-management and this will serve as my MICAH Supervisory note as the radiotelegrapher of record and shared attestation. I did perform a substantive portion of the visit including all aspects of the Medical Decision Making. I wore appropriate PPE for the entirety of this encounter. Brief HPI: In brief, El Smith is a 42 y.o. male that presents for feeling short of breath unwell as well as alcohol withdrawals. Patient was recently admitted on 04/16/2023 for concerns for pneumonia as well as alcohol withdrawals. Signed out AMA after 1 day. As he is feeling tremulous and anxious, last drink was yesterday. States he has been vomiting as well over the past day. Focused Physical exam: Malys in this alert and oriented 4, no acute distress, nontoxic appearing, Pulm: clear to auscultation bilaterally, Cardiac tachycardic rate and rhythm, Abdomen: soft nontender, Neuro: no focal motor or sensory deficits. Plan/MDM: Will recheck infectious workup for his recent pneumonia as well as detox labs, will administer fluids antiemetics and Ativan. Patients symptoms are consistent with sepsis, severe sepsis, or septic shock (If yes use .sepsiscoremeasure): Please see subsequent provider note for further details and disposition Comment: Please note this report has been produced using speech recognition software and may contain errors related to that system including errors in grammar, punctuation, and spelling as well as words and phrases that may be inappropriate. If there are any questions or concerns please feel free to contact the dictating provider for clarification Hitesh Corona DO Acute Care [facility] Hitesh Corona DO 04/19/23 0658 [employer] Phone: 04-19-2023 Physician Emergency department Note EMERGENCY DEPARTMENT ENCOUNTER Pt Name: El Smith Birthdate 1980 Date of evaluation: 04/19/2023 ED Provider: Kd Toledo DO CHIEF COMPLAINT Chief Complaint Patient presents with Flu Symptoms CX Alcohol Problem HISTORY OF PRESENT ILLNESS (Location/Symptom, Timing/Onset, Context/Setting, Quality, Duration, Modifying Factors, Severity) Note limiting factors. I wore appropriate PPE for the entirety of this encounter. HPI El Smith is a 42 y.o. male who presents to the emergency department cough, nausea, vomiting, and alcohol withdrawal symptoms. The patient reports that over the past few days he has been experiencing intermittent chest pains, cough, nausea, and vomiting. He reports that cough is productive of sputum. He admits to multiple episodes of nonbloody nonbilious emesis. He also admits to history of alcohol use disorder, he normally drinks 10-20 shots daily. He reports that his last drink was last night at 10:00 PM. He reports that he is currently experiencing tremulousness and palpitations. Of note, the patient was recently admitted to the hospital and was discharged AGAINST MEDICAL ADVICE on 04/17/2023. Nursing Notes were reviewed. Limitations to history: Outside historians: REVIEW OF SYSTEMS Review of Systems Respiratory: Positive for cough and shortness of breath. Cardiovascular: Positive for palpitations. Gastrointestinal: Positive for nausea and vomiting. Neurological: Positive for tremors. 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 Drug abuse ([facility]) ([facility]) Gastroenteritis 11/23/2018 Last Assessment & Plan: Predominantly vomiting; ?food poisoning vs viral gastroenteritis IV hydration PRN antiemetics Hyperlipidemia Hypertension Iritis of left eye 09/20/2018 VA (myocardial infarction) ([facility]) Opioid dependence, uncomplicated ([facility]) 10/27/2021 Presence of stent in right coronary artery 10/02/2021 Sciatica Spinal stenosis, lumbar Tobacco abuse SURGICAL HISTORY Past Surgical History: Procedure Laterality Date ARM SURGERY (HISTORICAL) metal rods in adam upper extremities BACK SURGERY COLONOSCOPY CORONARY ANGIOPLASTY WITH STENT PLACEMENT 09/23/2021 DORIS to proximal RCA FRACTURE SURGERY CURRENT MEDICATIONS Previous Medications ASPIRIN 81 MG EC TABLET Take 81 mg by mouth in the morning. CARVEDILOL (COREG) 12.5 MG TABLET GABAPENTIN (NEURONTIN) 300 MG CAPSULE HYDROXYZINE HCL (ATARAX) 10 MG TABLET LAMOTRIGINE (LAMICTAL) 25 MG TABLET Take 2 tablets by mouth daily. LISINOPRIL 5 MG TABLET Take 5 mg by mouth. LISINOPRIL PO Take by mouth. MELOXICAM (MOBIC) 15 MG TABLET Take 15 mg by mouth. METHOCARBAMOL (ROBAXIN) 500 MG TABLET Take 2 tablets (1,000 mg) by mouth in the morning and 2 tablets (1,000 mg) at noon and 2 tablets (1,000 mg) before bedtime. Do all this for 10 days. MIRTAZAPINE (REMERON) 7.5 MG TABLET Take 1 tablet by mouth Nightly. ROSUVASTATIN (CRESTOR) 40 MG TABLET Take 40 mg by mouth. TICAGRELOR (BRILINTA) 90 MG TABLET Take 90 mg by mouth. TRAZODONE (DESYREL) 50 MG TABLET Take 25 mg by mouth. ALLERGIES [place] FAMILY HISTORY Family History Problem Relation Name Age of Onset Atrial fibrillation Sister Hyperlipidemia Mother Obesity Mother Asthma Mother Depression Mother Obesity Sister Depression Sister Arthritis Mother High Blood Pressure Maternal Grandmother Diabetes Mother Asthma Maternal Grandmother Substance Abuse Sister Diabetes Father Stroke Paternal Grandfather Arthritis Sister High Blood Pressure Mother Vision loss Maternal Grandmother Diabetes Maternal Grandmother Stroke Maternal Grandmother Arthritis Maternal Grandfather Arthritis Maternal Grandmother Cancer Maternal Grandfather Depression Maternal Grandmother Cancer Brother Diabetes Paternal Grandfather Stroke Paternal Grandmother Diabetes Maternal Grandfather Obesity Maternal Grandmother Depression Maternal Grandfather Arthritis Paternal Grandmother Vision loss Maternal Grandfather Depression Paternal Grandmother Arthritis Paternal Grandfather SOCIAL HISTORY Social History Socioeconomic History Marital status: Single Tobacco Use Smoking status: Every Day Packs/day: 2 Types: Cigarettes Smokeless tobacco: Current Vaping Use Vaping Use: Every day Substance and Sexual Activity Alcohol use: Yes Comment: 15 shots of whiskey Drug use: Yes Types: Marijuana Comment: uses methadone, also buys pain meds on the streets Social Determinants of Health Transportation Needs: No Transportation Needs (09/18/2022) PRAPARE - Transportation Lack of Transportation (Medical): No Lack of Transportation (Non-Medical): No Intimate Partner Violence: Not At Risk (04/17/2023) Humiliation, Afraid, Rape, and Kick questionnaire Fear of Current or Ex-Partner: No Emotionally Abused: No Physically Abused: No Sexually Abused: No Housing Stability: Low Risk (09/18/2022) Housing Stability Vital Sign Unable to Pay for Housing in the Last Year: No Number of Places Lived in the Last Year: 1 Unstable Housing in the Last Year: No SCREENINGS PHYSICAL EXAM ED Triage Vitals [04/19/23 0554] Temp Heart Rate Resp BP 37.2 C (98.9 F) (!) 128 19 (!) 143/101 SpO2 Temp Source Heart Rate Source Patient Position 96 % Temporal Monitor -- BP Location FiO2 (%) -- -- Physical Exam Constitutional: General: He is not in acute distress. Appearance: He is ill-appearing. HENT: Head: Normocephalic. Eyes: Conjunctiva/sclera: Conjunctivae normal. Cardiovascular: Rate and Rhythm: Regular rhythm. Tachycardia present. Pulmonary: Effort: Pulmonary effort is normal. Abdominal: General: Abdomen is flat. Tenderness: There is no abdominal tenderness. Musculoskeletal: General: No deformity. Skin: General: Skin is warm and dry. Psychiatric: Mood and Affect: Mood normal. DIAGNOSTIC RESULTS RADIOLOGY (Per Emergency Physician): Interpretation per the Radiologist below, if available at the time of this note: XR chest 1 view (Results Pending) LABS: Labs Reviewed CBC WITH AUTO DIFFERENTIAL - Abnormal Result Value Auto WBC 14.2 (*) RBC 3.95 (*) Hemoglobin 11.6 (*) Hematocrit 35.1 (*) MCV 88.8 MCH 29.4 MCHC 33.1 RDW 24.7 (*) Platelets 224 MPV 7.6 nRBC 0.0 COMPREHENSIVE METABOLIC PANEL - Abnormal SODIUM 132 (*) POTASSIUM 3.5 CHLORIDE 94 (*) CARBON DIOXIDE 31 (*) ANION GAP 7 UREA NITROGEN 18 CREATININE 0.63 (*) GLUCOSE 117 (*) CALCIUM 7.8 (*) AST (SGOT) 164 (*) ALT 65 (*) ALKALINE PHOSPHATASE 120 ALBUMIN 3.2 (*) BILIRUBIN, TOTAL 1.0 TOTAL PROTEIN 5.9 (*) eGFR >90.0 COMPLETE URINALYSIS - Abnormal Color, Urine Yellow Clarity, Urine Clear pH, Urine 7.5 Leukocytes, Urine Negative Nitrite, Urine Negative Protein, Urine 20 (*) Glucose, Urine Normal Bilirubin, Urine Negative Ketones, Urine Trace (*) Urobilinogen, Urine 3 (*) Blood, Urine Negative RBC, Urine 3-5 (*) WBC, Urine 0-2 Squamous Epithelial, Urine Negative Bacteria, Urine Negative Mucus, Urine Few SPECIFIC GRAVITY OF URINE (NUMERIC) 1.020 MANUAL DIFFERENTIAL - Abnormal Adjusted WBC 14.2 (*) Neutrophils % 83 (*) Lymphocytes % 9 (*) Monocytes % 7 Basophils % 1 Absolute Neutrophil Count 11.8 (*) Lymphocytes Absolute 1.3 Monocytes Absolute 1.0 (*) Basophils Absolute 0.1 Anisocytosis Marked (*) Poikilocytes Slight (*) Hypochromia Slight (*) Polychromasia Slight (*) Basophilic Stippling Slight (*) Target Cells Slight (*) Ovalocytes Slight (*) Dacryocytes Rare (*) Stomatocytes Slight (*) WBC Morphology Normal PLT Morphology Normal Total Counted 100 Neutrophils Manual 83 Lymphocytes Manual 9 Monocytes Manual 7 Basophils Manual 1 Differential Method Manual differential performed SARS-COV-2, FLU A/B, AND RSV COMBO - Normal SARS-CoV-2 Not Detected Respiratory Syncytial Virus Not Detected Influenza A Not Detected Influenza B Not Detected Narrative: Methodology: real-time, RT-PCR The SARS-CoV-2, Flu A/B, and RSV Combo assay is intended for in vitro diagnostic use under the FDA Emergency Use Authorization (EUA). This test has not been FDA cleared or approved. In compliance with this authorization, please visit www.fda.gov/media/943160/download or www.fda.gov/media/896205/download to access the applicable information sheets. LACTIC ACID WITH REFLEX - Normal LACTIC ACID 0.8 ETHANOL - Normal ETHANOL IN SER/PLAS <0.010 Narrative: NOTE: This result is for medical treatment only. Analysis performed using non-forensic procedures. TROPONIN, WITH SERIAL REFLEX - Normal TROPONIN I <0.012 Narrative: Patients with high levels of Biotin oral intake (ie >5 mg/day) may have falsely decreased Troponin levels. BLOOD CULTURE BLOOD CULTURE COMPLETE URINALYSIS WITH REFLEX TO CULTURE Narrative: The following orders were created for panel order Urinalysis Complete with reflex to Culture. Procedure Abnormality Status --------- ------ Complete Urinalysis[[id number]] Abnormal Final result Please view results for these tests on the individual orders. DRUGS OF ABUSE AMPHETAMINE SCREEN Negative BARBITURATES SCREEN Positive BENZODIAZEPINE SCREEN Negative COCAINE METAB. SCREEN Negative METHADONE SCREEN Positive OPIATES SCREEN Negative OXYCODONE SCREEN Negative PHENCYCLIDINE SCREEN Negative Narrative: The expected value for all of the drugs listed above is Negative. The following drugs or drug groups have been screened for by Immunoassay at the following thresholds: Amphetamine class (1000 ng/mL) Barbiturates (200 ng/mL) Benzodiazepines (200 ng/mL) Cocaine (300 ng/mL) Methadone (300 ng/mL) Opiates (300 ng/mL) Oxycodone (100 ng/mL) PCP (25 ng/mL) NOTE: These results are for medical treatment only. Analysis performed using non-forensic procedures. POSITIVE results are NOT confirmed by a more specific alternative method unless requested. If confirmation is needed, request confirmation under separate order. TROPONIN I TROPONIN I All other labs were within normal range or not returned as of this dictation. EMERGENCY DEPARTMENT COURSE and DIFFERENTIAL DIAGNOSIS/MDM: Vitals: Vitals: 04/19/23 0554 04/19/2382304/19/23826 BP: (!) 143/101 (!) 146/115 (!) 146/115 BP Location: Left arm Patient Position: Sitting Pulse: (!) 128 110 110 Resp: 19 18 Temp: 37.2 C (98.9 F) TempSrc: Temporal SpO2: 96% 95% Medications sodium chloride 0.9 % bolus 1,000 mL (1,000 mL IntraVENous New Bag 04/19/23829) thiamine (Vitamin B1) tablet 100 mg (100 mg Oral Given 04/19/23818) folic acid (Folvite) tablet 1 mg (1 mg Oral Given 04/19/23818) LORazepam (Ativan) tablet 1 mg (has no administration in time range) Or LORazepam (Ativan) injection 1 mg (has no administration in time range) Or LORazepam (Ativan) tablet 2 mg (has no administration in time range) Or LORazepam (Ativan) injection 2 mg (has no administration in time range) Or LORazepam (Ativan) tablet 3 mg (has no administration in time range) Or LORazepam (Ativan) injection 3 mg (has no administration in time range) Or LORazepam (Ativan) tablet 4 mg (has no administration in time range) Or LORazepam (Ativan) injection 4 mg (has no administration in time range) cefTRIAXone (Rocephin) 1,000 mg in sodium chloride 0.9 % 50 mL IVPB Mini-Bag Plus (has no administration in time range) doxycycline (Vibramycin) 100 mg in sodium chloride 0.9 % 100 mL IVPB (has no administration in time range) LORazepam (Ativan) injection 2 mg (2 mg IntraVENous Given 04/19/23818) ondansetron (Zofran) injection 4 mg (4 mg IntraVENous Given 04/19/23818) MDM The patient presented with chief complaint of nausea, vomiting, cough, alcohol withdrawal symptoms. The patient appears ill, tremulous, however no acute distress, is currently alert and oriented x 4. He is both tachycardic and hypertensive consistent with a history of alcohol withdrawal syndrome. I reviewed the patient's discharge summary from 04/17/2023, at that time he left AMA after being treated for alcohol withdrawal symptoms and presumably pneumonia. He does admit to a productive cough. The patient was given Ativan 2 mg IV, Ativan was also ordered per [facility] protocol. Differential diagnosis includes but is not limited to alcohol withdrawal syndrome, pneumonia, ACS, pneumothorax. To aid in management, I performed an independent interpretation of all laboratory tests, EKG, imaging, and other diagnostics ordered. Labs are significant for mild hyponatremia and hypocalcemia. The patient also has leukocytosis with tachycardia, he meets 2 SIRS criteria. I do have a suspected source of infection with pneumonia given that the patient is having cough. Chest x-ray reveals possible left lower lobe infiltrate as interpreted by me, see radiologist report for details. EKG reveals sinus tachycardia with rate of 109, no evidence of acute ischemia. Given that the patient has possible source of infection and remains tachycardic he will be admitted to medicine for possible pneumonia and alcohol withdrawal syndrome. I contacted and discussed the case with admitting physician, Dr. Helton, who is agreeable. Patient's care was impacted by Heart disease. Patient's care was significantly impacted by social determinants of health including Alcoholism and Drug addiction. I Kd Toledo DO am the radiotelegrapher of record. PROCEDURES: Unless otherwise noted below, none Procedures SEP-1 CORE MEASURE DATA SIRS Criteria Sepsis Criteria Severe Sepsis Criteria Septic Shock Criteria Must meet 2: [] Temperature > 100.4 F (38 C) or < 96.8 F (36 C) [x] HR > 90 [] RR > 20 [x] WBC > 12 or < 4 or 10% bands Must be confirmed or suspected to move forward with diagnosis of sepsis. [x] Infection Confirmed or Suspected. [] No infection present. Patient does not meet criteria for Sepsis. Must meet 1: [] Lactate > 2 or [] Signs of Organ Dysfunction: - SBP < 90 or MAP < 65 - Altered mental status - Creatinine > 2 or increased from baseline - Urine Output < 0.5 ml/kg/hr - Bilirubin > 2 - INR > 1.5 - Platelets < 100,000 - Acute Respiratory Failure as evidenced by new need for NIPPV or mechanical ventilation [] No criteria met for Severe Sepsis. Must meet 1: [] Lactate = or > 4 or [] SBP < 90 or MAP < 65 for at least two readings in the first hour after fluid bolus administration [] No criteria met for Septic Shock. No data found. Recent Labs 04/16/23 2225 04/17/23 0321 04/17/23 0820 04/19/23 0806 WBC 10.0 7.6 -- 14.2* LACTATE -- -- -- 0.8 CREATININE 0.73 0.78 -- 0.63* BILITOT -- -- 0.7 1.0 PLT 335 300 -- 224 Sepsis Identified at 0900 hours. Fluid Resuscitation Rational: Patient does not meet criteria for Severe Sepsis or Septic Shock. 30mL/kg bolus not indicated. Infection Source: Pulmonary - Community Acquired Reassessment Exam: Not applicable. Patient does not have Septic Shock. Kd Toledo DO FINAL IMPRESSION 1. Alcohol withdrawal syndrome with complication (HCC) 2. Pneumonia of left lower lobe due to infectious organism DISPOSITION Admit 04/19/2023 09:27:26 AM PATIENT REFERRED TO: No follow-up provider specified. DISCHARGE MEDICATIONS: New Prescriptions No medications on file (Comment: Please note this report has been produced using speech recognition software and may contain errors related to that system including errors in grammar, punctuation, and spelling, as well as words and phrases that may be inappropriate. If there are any questions or concerns please feel free to contact the dictating provider for clarification.) Kd Toledo DO (electronically signed) Emergency Medicine Provider Kd Toledo DO 04/19/23 0929 [facility] 04-17-2023 Hospital course Narrative Images from the original note were not included. Discharge Summary El Smith : 1980 ADMIT DATE: 04/16/2023 DISCHARGE DATE: 04/17/2023 PRIMARY CARE PHYSICIAN: KAY KERR VISIT STATUS: Admission CODE STATUS: Full Code DISCHARGE DIAGNOSES: Principal Problem: Severe alcohol use disorder (HCC) Active Problems: Severe opioid use disorder on maintenance therapy (HCC) Chest pain not due to acute coronary syndrome Alcohol intoxication (CMS/HCC) (HCC) Nonadherence to medical treatment Generalized anxiety disorder HOSPITAL COURSE: Patient admitted 04/16/2023 for anxiety, ?PNA. Chronic medical conditions include CAD with prior VA/PCI/CABG, polysubstance abuse (AUD w/ hx withdrawal, opioids, tobacco/vaping), COPD, HTN, HLD, CBP/DDD/lumbar spinal stenosis/sciatica (on methadone), depression & anxiety, nonadherence. Initially presented with three days of chest tightness and worsening anxiety. Reported not taking cardiac medications, but had been treating anxiety with EtOH. Did endorse stressor that preceded sx onset (father in ICU). Inebriated on presentation (EtOH 0.303), ?infiltrate LLL (no respiratory sx, no fever, no leukocytosis, PCT only 0.1 [ULN 0.09]; had severe PNA with respiratory failure in with bibasilar opacities at that time). Serial trops neg, and infectious work-up negative. Initially expressed interest in remaining for medically-managed detox, however notified shortly after the conversation that patient was leaving AMA. SIGNIFICANT DIAGNOSTIC STUDIES: Echo (): Limited echo due to patient non-cooperation. Findings below via limited images. No severe abnormalities noted on this study. Left Ventricle: Left ventricle size is normal. Mildly increased wall thickness. Normal left ventricular systolic function. The EF by visual approximation is 60%. Normal wall motion. Right Ventricle: Not well visualized. Right ventricle size is normal. Normal systolic function visually. CXR portable: Mild infiltrate or atelectasis left lung base. CONSULTANTS: Addiction medicine DISCHARGE MEDICATIONS: Medication List ASK your doctor about these medications aspirin 81 MG EC tablet carvedilol 12.5 MG tablet Commonly known as: Coreg gabapentin 300 MG capsule Commonly known as: Neurontin hydrOXYzine HCl 10 MG tablet Commonly known as: Atarax lamoTRIgine 25 MG tablet Commonly known as: LaMICtal * LISINOPRIL PO * lisinopril 5 MG tablet meloxicam 15 MG tablet Commonly known as: Mobic methocarbamol 500 MG tablet Commonly known as: Robaxin Take 2 tablets (1,000 mg) by mouth in the morning and 2 tablets (1,000 mg) at noon and 2 tablets (1,000 mg) before bedtime. Do all this for 10 days. mirtazapine 7.5 MG tablet Commonly known as: Remeron rosuvastatin 40 MG tablet Commonly known as: Crestor ticagrelor 90 MG tablet Commonly known as: Brilinta traZODone 50 MG tablet Commonly known as: Desyrel * This list has 2 medication(s) that are the same as other medications prescribed for you. Read the directions carefully, and ask your doctor or other care provider to review them with you. DIET: No diet orders on file ACTIVITY: No restriction. DISPOSITION: AMA Follow up with Kay Kerr [address] [place] [id number] DISCHARGE TIME: 34 minutes SIGNED: Andrea Hanks MD 04/17/2023, 7:17 PM PHYSICAL EXAM: Vitals: BP (!) 147/114 (BP Location: Left arm, Patient Position: Sitting) Pulse 88 Temp (!) 35.2 C (95.3 F) (Temporal) Resp 16 Ht 5' 10 (1.778 m) Wt 203 lb 8 oz (92.3 kg) SpO2 95% BMI 29.20 kg/m General appearance: NAD. Sitting on edge of bed. Neurological: No tremors noted. Alert and appropriately conversant. documented in this encounter [facility] [employer] 04-17-2023 Nurse Note Pt call light on, pt states he wants to leave AMA. Addiction med and IMS paged regarding pt status. Pt states he is not suicidal and just wants to go home, he is detoxed enough. This RN educated on importance of staying for medical treatment. AMA form signed, IV removed, telemetry removed and placed at corresponding slot at nurses station. Pt ambulated self to exit. [facility] 04-17-2023 Nurse Note Pt call light on, pt states he wants to leave AMA. Addiction med and IMS paged regarding pt status. Pt states he is not suicidal and just wants to go home, he is detoxed enough. This RN educated on importance of staying for medical treatment. AMA form signed, IV removed, telemetry removed and placed at corresponding slot at nurses station. Pt ambulated self to exit. Patient arrived to 5W. Vitals taken, heart monitor on, troponin drawn. Patient CIWA 8. Dr. Huerta notified of arrival. Patient states he takes 125 mg of methadone in the mornings. Patient reports drinking 15 shots of whiskey a day and his last drink was 1300 on 04/16/2023 documented in this encounter [facility] 04-17-2023 Consult note Associated Order (s): IP CONSULT TO ADDICTION MEDICINE Addiction Medicine Consultation H&P Patient: El Smith Admit Date: 04/16/2023 Primary Care Physician: KAY KERR Reason for Consultation: Alcohol abuse. Chief Complaint Patient presents with Anxiety History of Present Illness History obtained from: Patient and chart review El Smith is a 42 y.o. year old male with a PMH of CAD, anxiety, depression, HTN and a long history of alcohol use. Patient is known to this Addiction Medicine Team from previous admissions. He was last seen by our team and consult 01/2023. Patient ultimately left AMA. Patient reports that he relapsed immediately. Patient admits that his drinking is a problem however he is noncommittal to quitting. Patient reports that he drinks to alleviate his ongoing back pain. Patient is currently consuming 10-20 shots of whiskey daily. Last use was 04/15/2023. Patient reports that he is on methadone 125 mg through [facility]. I have not been able to confirm his dosage. Awaiting a return call from the facility. El Smith first use of alcohol was 15 years old. Patient reports daily of marijuana use. Denies a history or current use of any other illicit substances. Patient with a history of blackouts. Denies a history of DTs, withdrawal seizures or alcohol overdoses. Patient has no real period of sobriety. Patient has no history of chemical dependency treatment. Patient has a history of psychiatric admission at [facility] 09/2021. Denies current SI/HI, auditory or visual hallucinations. On admission, a urine drug screen was not completed, and a serum alcohol level was >0.300. Current Substance Use: See HPI Substance Use History: Consequences: [] IVDA. [x] Blackouts related to substance use. [] History of withdrawal seizures. [] History of delirium tremens. [] History of overdoses. [] Legal consequences of substance use. Substance Use Disorder Criteria: 2-3 = mild; 4-5 = moderate; 6 or >6 = severe substance use disorder [x] Taking substance in larger amounts and/or for longer than intended. [x] Wanting to cut down or quit but not being able to. [] Spending a lot of time obtaining the substance. [x] Craving or a strong desire to use substance. [x] Repeatedly doesn't carry out major obligations due to substance use. [x] Using despite recurring social or interpersonal problems. [x] Reducing social, occupational, or recreational activities. [x] Recurrent use in physically hazardous situations. [x] Consistent use despite recurrent physical or psychological difficulties. [x] Tolerance (increased amounts to achieve intoxication or diminished effect). [x] Withdrawal syndrome or the substance is used to avoid withdrawal. Treatment History: Longest period of sobriety since daily use began is none. [] Inpatient Rehab: Denies. [] Chem Dep IOP: Denies. [x] Detoxifications: [facility]. [] 12 Step Meetings: Denies. [x] Medication Assisted Treatment: Methadone 125 mg. Psychiatric History: Current Psychiatrist: None Current Medications: see below Previous Medication Trials: unknown Diagnoses: Anxiety, depression Psychiatric Hospitalizations: [facility] 09/2021 Previous Suicide Attempts: Denies Adverse Childhood/ Trauma History: Denies History of Head Injuries: Denies Remaining History: Social History Socioeconomic History Marital status: Single Spouse name: Not on file Number of children: Not on file Years of education: Not on file Highest education level: Not on file Occupational History Not on file Tobacco Use Smoking status: Every Day Packs/day: 2 Types: Cigarettes Smokeless tobacco: Current Vaping Use Vaping Use: Every day Substance and Sexual Activity Alcohol use: Yes Comment: 15 shots of whiskey Drug use: Yes Types: Marijuana Comment: uses methadone, also buys pain meds on the streets Sexual activity: Not on file Other Topics Concern Not on file Social History Narrative Not on file Social Determinants of Health Financial Resource Strain: Not on file Food Insecurity: Not on file Transportation Needs: No Transportation Needs (09/18/2022) PRAPARE - Transportation Lack of Transportation (Medical): No Lack of Transportation (Non-Medical): No Physical Activity: Not on file Stress: Not on file Social Connections: Not on file Intimate Partner Violence: Not At Risk (04/17/2023) Humiliation, Afraid, Rape, and Kick questionnaire Fear of Current or Ex-Partner: No Emotionally Abused: No Physically Abused: No Sexually Abused: No Housing Stability: Low Risk (09/18/2022) Housing Stability Vital Sign Unable to Pay for Housing in the Last Year: No Number of Places Lived in the Last Year: 1 Unstable Housing in the Last Year: No 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 Drug abuse ([facility]) ([facility]) Gastroenteritis 11/23/2018 Last Assessment & Plan: Predominantly vomiting; ?food poisoning vs viral gastroenteritis IV hydration PRN antiemetics Hyperlipidemia Hypertension Iritis of left eye 09/20/2018 VA (myocardial infarction) ([facility]) Opioid dependence, uncomplicated ([facility]) 10/27/2021 Presence of stent in right coronary artery 10/02/2021 Sciatica Spinal stenosis, lumbar Tobacco abuse Past Surgical History: Procedure Laterality Date ARM SURGERY (HISTORICAL) metal rods in adam upper extremities BACK SURGERY COLONOSCOPY CORONARY ANGIOPLASTY WITH STENT PLACEMENT 09/23/2021 DORIS to proximal RCA FRACTURE SURGERY Family History Problem Relation Name Age of Onset Atrial fibrillation Sister Hyperlipidemia Mother Obesity Mother Asthma Mother Depression Mother Obesity Sister Depression Sister Arthritis Mother High Blood Pressure Maternal Grandmother Diabetes Mother Asthma Maternal Grandmother Substance Abuse Sister Diabetes Father Stroke Paternal Grandfather Arthritis Sister High Blood Pressure Mother Vision loss Maternal Grandmother Diabetes Maternal Grandmother Stroke Maternal Grandmother Arthritis Maternal Grandfather Arthritis Maternal Grandmother Cancer Maternal Grandfather Depression Maternal Grandmother Cancer Brother Diabetes Paternal Grandfather Stroke Paternal Grandmother Diabetes Maternal Grandfather Obesity Maternal Grandmother Depression Maternal Grandfather Arthritis Paternal Grandmother Vision loss Maternal Grandfather Depression Paternal Grandmother Arthritis Paternal Grandfather Review of Systems Review of Systems Constitutional: Positive for appetite change, diaphoresis and fatigue. Gastrointestinal: Positive for nausea. Negative for diarrhea and vomiting. Musculoskeletal: Positive for back pain. Neurological: Positive for tremors and headaches. Negative for seizures. Psychiatric/Behavioral: Positive for sleep disturbance. All other systems reviewed and are negative. Physicial Exam Vitals: 04/17/23 0622 04/17/23 0808 04/17/23 0811 04/17/23 1134 BP: (!) 156/114 (!) 151/102 (!) 151/102 (!) 147/114 BP Location: Left arm Left arm Patient Position: Sitting Sitting Pulse: 106 108 110 88 Resp: 18 18 16 Temp: (!) 35.9 C (96.6 F) (!) 35.1 C (95.1 F) (!) 35.2 C (95.3 F) TempSrc: Temporal Temporal Temporal SpO2: 99% 91% 95% Weight: Height: Physical Exam Vitals and nursing note reviewed. Constitutional: General: He is sleeping. Appearance: He is diaphoretic. Comments: Disheveled HENT: Mouth/Throat: Mouth: Mucous membranes are dry. Cardiovascular: Rate and Rhythm: Normal rate. Pulmonary: Effort: Pulmonary effort is normal. Abdominal: General: There is no distension. Musculoskeletal: General: Normal range of motion. Skin: Coloration: Skin is not pale. Neurological: Mental Status: He is oriented to person, place, and time and easily aroused. Motor: Tremor present. No seizure activity. Psychiatric: Attention and Perception: He does not perceive auditory or visual hallucinations. Mood and Affect: Mood is anxious. Affect is flat. Speech: Speech normal. Behavior: Behavior is cooperative. Thought Content: Thought content does not include homicidal or suicidal ideation. Cognition and Memory: Cognition and memory normal. Judgment: Judgment is impulsive and inappropriate. Labs Last 24 hours: Recent Results (from the past 24 hour(s)) ECG 12 lead Collection Time: 04/16/23 9:39 PM Result Value Ref Range Heart Rate 95 bpm QRSD Interval 110 ms QT Interval 417 ms QTC Interval 526 ms P [place] 44 degrees QRS [place] 30 degrees T Wave [place] 137 degrees MI Interval 160 ms SARS-CoV-2, Flu A/B, and RSV Combo Collection Time: 04/16/23 10:22 PM Specimen: Nasopharynx; Swab Result Value Ref Range SARS-CoV-2 Not Detected Not Detected Respiratory Syncytial Virus Not Detected Not Detected Influenza A Not Detected Not Detected Influenza B Not Detected Not Detected D-dimer, quantitative Collection Time: 04/16/23 10:25 PM Result Value Ref Range D-DIMER, INNOVANCE 0.42 <0.50 mg/L CBC auto differential Collection Time: 04/16/23 10:25 PM Result Value Ref Range Auto WBC 10.0 3.6 - 10.7 10*3/uL RBC 5.27 4.40 - 5.90 10*6/uL Hemoglobin 15.4 13.0 - 18.0 g/dL Hematocrit 45.0 40.0 - 52.0 % MCV 85.4 80.0 - 98.0 fL MCH 29.2 26.0 - 34.0 pg MCHC 34.2 32.0 - 36.0 % RDW 22.2 (H) 11.5 - 14.5 % Platelets 335 140 - 440 10*3/uL MPV 8.6 7.4 - 12.4 fL Neutrophils Relative 64.2 40.0 - 80.0 % Lymphocytes Relative 25.7 20.0 - 40.0 % Monocytes Relative 8.3 2.0 - 10.0 % Eosinophils Relative 0.5 (L) 1.0 - 6.0 % Basophils Relative 1.0 0.0 - 2.0 % Immature Grans % 0.3 (H) <=0.0 % Neutrophils Absolute 6.4 1.8 - 7.0 10*3/uL Lymphocytes Absolute 2.6 1.0 - 4.3 10*3/uL Monocytes Absolute 0.8 0.0 - 0.8 10*3/uL Eosinophils Absolute 0.1 0.0 - 0.5 10*3/uL Basophils Absolute 0.1 0.0 - 0.2 10*3/uL Immature Grans Absolute 0.0 <=0.0 10*3/uL Basic metabolic panel Collection Time: 04/16/23 10:25 PM Result Value Ref Range SODIUM 134 (L) 135 - 145 mmol/L POTASSIUM 5.7 (H) 3.5 - 5.1 mmol/L CHLORIDE 93 (L) 98 - 107 mmol/L CARBON DIOXIDE 30 22 - 30 mmol/L UREA NITROGEN 14 9 - 20 mg/dL CREATININE 0.73 0.66 - 1.25 mg/dL GLUCOSE 95 70 - 100 mg/dL CALCIUM 8.2 (L) 8.4 - 10.4 mg/dL ANION GAP 12 3 - 13 mmol/L eGFR >90.0 >60.0 mL/min/1.73m*2 Ethanol Collection Time: 04/16/23 10:25 PM Result Value Ref Range ETHANOL IN SER/PLAS >0.300 (H) 0.000 - 0.010 g/dL Troponin, with Serial Reflex Collection Time: 04/16/23 10:25 PM Result Value Ref Range TROPONIN I 0.022 <0.034 ng/mL NT PRO BNP Collection Time: 04/16/23 10:25 PM Result Value Ref Range NT PRO BNP <20 <20 - 100 pg/mL Hemoglobin A1c Collection Time: 04/16/23 10:25 PM Result Value Ref Range HEMOGLOBIN A1C 4.8 <5.7 % ESTIMATED AVERAGE GLUCOSE 91 mg/dL Troponin I Collection Time: 04/17/23 1:54 AM Result Value Ref Range TROPONIN I <0.012 <0.034 ng/mL Procalcitonin Test Collection Time: 04/17/23 1:54 AM Result Value Ref Range PROCALCITONIN 0.10 (H) 0.00 - 0.09 ng/mL Lipid panel Collection Time: 04/17/23 1:54 AM Result Value Ref Range TRIGLYCERIDE 107 <150 mg/dL CHOLESTEROL 207 (H) <200 mg/dL LOW DENSITY LIPOPROTEIN 102 (H) 0 - <100 mg/dL HDL CHOLESTEROL 84 (H) 40 - 60 mg/dL CHOL/HDL 2 Troponin, with Serial Reflex Collection Time: 04/17/23 3:21 AM Result Value Ref Range TROPONIN I <0.012 <0.034 ng/mL CBC auto differential Collection Time: 04/17/23 3:21 AM Result Value Ref Range Auto WBC 7.6 3.6 - 10.7 10*3/uL RBC 4.64 4.40 - 5.90 10*6/uL Hemoglobin 13.7 13.0 - 18.0 g/dL Hematocrit 41.1 40.0 - 52.0 % MCV 88.8 80.0 - 98.0 fL MCH 29.5 26.0 - 34.0 pg MCHC 33.2 32.0 - 36.0 % RDW 24.9 (H) 11.5 - 14.5 % Platelets 300 140 - 440 10*3/uL MPV 7.1 (L) 7.4 - 12.4 fL nRBC 0.2 0.0 - 2.0 /100 WBCs Basic metabolic panel Collection Time: 04/17/23 3:21 AM Result Value Ref Range SODIUM 135 135 - 145 mmol/L POTASSIUM 3.0 (L) 3.5 - 5.1 mmol/L CHLORIDE 97 (L) 98 - 107 mmol/L CARBON DIOXIDE 26 22 - 30 mmol/L UREA NITROGEN 13 9 - 20 mg/dL CREATININE 0.78 0.66 - 1.25 mg/dL GLUCOSE 150 (H) 70 - 100 mg/dL CALCIUM 7.6 (L) 8.4 - 10.4 mg/dL ANION GAP 12 3 - 13 mmol/L eGFR >90.0 >60.0 mL/min/1.73m*2 Man Differential Collection Time: 04/17/23 3:21 AM Result Value Ref Range Adjusted WBC 7.6 3.6 - 10.7 10*3/uL Neutrophils % 58 40 - 80 % Lymphocytes % 33 20 - 40 % Monocytes % 9 2 - 10 % Absolute Neutrophil Count 4.4 1.8 - 7.0 10*3/uL Lymphocytes Absolute 2.5 1.0 - 4.3 10*3/uL Monocytes Absolute 0.7 0.0 - 0.8 10*3/uL Anisocytosis Slight (A) (none) Poikilocytes Slight (A) (none) Macrocytes Slight (A) (none) Ovalocytes Slight (A) (none) WBC Morphology Normal PLT Morphology Normal Total Counted 100 Neutrophils Manual 58 Lymphocytes Manual 33 Monocytes Manual 9 Differential Method Automated differential reported after manual slide review Magnesium Collection Time: 04/17/23 3:21 AM Result Value Ref Range MAGNESIUM 1.4 (L) 1.6 - 2.3 mg/dL Troponin I Collection Time: 04/17/23 8:20 AM Result Value Ref Range TROPONIN I <0.012 <0.034 ng/mL Hepatic function panel Collection Time: 04/17/23 8:20 AM Result Value Ref Range BILIRUBIN, TOTAL 0.7 0.2 - 1.3 mg/dL BILIRUBIN, DIRECT 0.0 0.0 - 0.3 mg/dL ALKALINE PHOSPHATASE 120 38 - 126 U/L AST (SGOT) 134 (H) 15 - 46 U/L ALT 62 (H) 0 - 49 U/L ALBUMIN 3.4 (L) 3.5 - 5.0 g/dL TOTAL PROTEIN 6.1 (L) 6.3 - 8.2 g/dL C-reactive protein Collection Time: 04/17/23 8:20 AM Result Value Ref Range C REACTIVE PROTEIN 5.3 <10.0 mg/L Medications aspirin, 81 mg, Oral, Daily carvedilol, 6.25 mg, Oral, BID WC enoxaparin, 40 mg, SubCUTAneous, Daily famotidine, 20 mg, Oral, BID folic acid, 1 mg, Oral, Daily [START ON 04/18/2023] influenza, 0.5 mL, IntraMUSCular, Once [Held by provider] lisinopril, 5 mg, Oral, Daily magnesium sulfate, 2,000 mg, IntraVENous, q8h melatonin, 3 mg, Oral, Nightly methocarbamol, 500 mg, Oral, 3 times per day mometasone-formoterol, 2 puff, Inhalation, BID PHENobarbital, 97.2 mg, Oral, Q4H Followed by PHENobarbital, 64.8 mg, Oral, Q4H Followed by [START ON 04/18/2023] PHENobarbital, 64.8 mg, Oral, q6h Followed by [START ON 04/19/2023] PHENobarbital, 32.4 mg, Oral, TID potassium chloride CR, 20 mEq, Oral, TID WC sodium chloride 0.9%, 5-40 mL, IntraVENous, q12h thiamine, 100 mg, Oral, TID PRN medications: acetaminophen OR acetaminophen, ipratropium-albuterol, LORazepam OR LORazepam OR LORazepam OR LORazepam OR LORazepam OR LORazepam OR LORazepam OR LORazepam, ondansetron ODT OR ondansetron, polyethylene glycol (PEG) 3350, sodium chloride, sodium chloride 0.9% Assessment Severe alcohol use disorder Opioid use disorder on MAT methadone Elevated liver enzymes (likely alcohol related) The last use of alcohol was 04/16/2023. Plan Continue phenobarbital taper to manage withdrawal symptoms: 97.2 mg every 4 hours for today. Thiamine/folic acid PRN medications for withdrawal symptom management. CI W A scores per unit protocol. Anticipated to be detoxed in 3-4 days pending: - resolution of withdrawal symptoms. - labs/tests/tasks ordered: None - oracle application consultant recommendations: Holding Methadone secondary to prolonged QTc interval on the EKG Recovery plan: Will discuss recovery plan as patient stabilizes Remaining medical management per primary team. Thank you for this consultation. Will follow. DARA Burger NP Addiction Medicine 04/17/2023 at 1:19 PM Note: Narrative portions of note written using [employer] dictation software. Efforts are made to dictate clearly and proofread but errors in dictation still may occur. Please reach out to author with any clarifying questions. [employer] Phone: 04-17-2023 Consult note Associated Order (s): IP CONSULT TO ADDICTION MEDICINE Addiction Medicine Consultation H&P Patient: El Smith Admit Date: 04/16/2023 Primary Care Physician: KAY KERR Reason for Consultation: Alcohol abuse. Chief Complaint Patient presents with Anxiety History of Present Illness History obtained from: Patient and chart review El Smith is a 42 y.o. year old male with a PMH of CAD, anxiety, depression, HTN and a long history of alcohol use. Patient is known to this Addiction Medicine Team from previous admissions. He was last seen by our team and consult 01/2023. Patient ultimately left AMA. Patient reports that he relapsed immediately. Patient admits that his drinking is a problem however he is noncommittal to quitting. Patient reports that he drinks to alleviate his ongoing back pain. Patient is currently consuming 10-20 shots of whiskey daily. Last use was 04/15/2023. Patient reports that he is on methadone 125 mg through [facility]. I have not been able to confirm his dosage. Awaiting a return call from the facility. El Smith first use of alcohol was 15 years old. Patient reports daily of marijuana use. Denies a history or current use of any other illicit substances. Patient with a history of blackouts. Denies a history of DTs, withdrawal seizures or alcohol overdoses. Patient has no real period of sobriety. Patient has no history of chemical dependency treatment. Patient has a history of psychiatric admission at [facility] 09/2021. Denies current SI/HI, auditory or visual hallucinations. On admission, a urine drug screen was not completed, and a serum alcohol level was >0.300. Current Substance Use: See HPI Substance Use History: Consequences: [] IVDA. [x] Blackouts related to substance use. [] History of withdrawal seizures. [] History of delirium tremens. [] History of overdoses. [] Legal consequences of substance use. Substance Use Disorder Criteria: 2-3 = mild; 4-5 = moderate; 6 or >6 = severe substance use disorder [x] Taking substance in larger amounts and/or for longer than intended. [x] Wanting to cut down or quit but not being able to. [] Spending a lot of time obtaining the substance. [x] Craving or a strong desire to use substance. [x] Repeatedly doesn't carry out major obligations due to substance use. [x] Using despite recurring social or interpersonal problems. [x] Reducing social, occupational, or recreational activities. [x] Recurrent use in physically hazardous situations. [x] Consistent use despite recurrent physical or psychological difficulties. [x] Tolerance (increased amounts to achieve intoxication or diminished effect). [x] Withdrawal syndrome or the substance is used to avoid withdrawal. Treatment History: Longest period of sobriety since daily use began is none. [] Inpatient Rehab: Denies. [] Chem Dep IOP: Denies. [x] Detoxifications: [facility]. [] 12 Step Meetings: Denies. [x] Medication Assisted Treatment: Methadone 125 mg. Psychiatric History: Current Psychiatrist: None Current Medications: see below Previous Medication Trials: unknown Diagnoses: Anxiety, depression Psychiatric Hospitalizations: [facility] 09/2021 Previous Suicide Attempts: Denies Adverse Childhood/ Trauma History: Denies History of Head Injuries: Denies Remaining History: Social History Socioeconomic History Marital status: Single Spouse name: Not on file Number of children: Not on file Years of education: Not on file Highest education level: Not on file Occupational History Not on file Tobacco Use Smoking status: Every Day Packs/day: 2 Types: Cigarettes Smokeless tobacco: Current Vaping Use Vaping Use: Every day Substance and Sexual Activity Alcohol use: Yes Comment: 15 shots of whiskey Drug use: Yes Types: Marijuana Comment: uses methadone, also buys pain meds on the streets Sexual activity: Not on file Other Topics Concern Not on file Social History Narrative Not on file Social Determinants of Health Financial Resource Strain: Not on file Food Insecurity: Not on file Transportation Needs: No Transportation Needs (09/18/2022) PRAPARE - Transportation Lack of Transportation (Medical): No Lack of Transportation (Non-Medical): No Physical Activity: Not on file Stress: Not on file Social Connections: Not on file Intimate Partner Violence: Not At Risk (04/17/2023) Humiliation, Afraid, Rape, and Kick questionnaire Fear of Current or Ex-Partner: No Emotionally Abused: No Physically Abused: No Sexually Abused: No Housing Stability: Low Risk (09/18/2022) Housing Stability Vital Sign Unable to Pay for Housing in the Last Year: No Number of Places Lived in the Last Year: 1 Unstable Housing in the Last Year: No 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 Drug abuse ([facility]) ([facility]) Gastroenteritis 11/23/2018 Last Assessment & Plan: Predominantly vomiting; ?food poisoning vs viral gastroenteritis IV hydration PRN antiemetics Hyperlipidemia Hypertension Iritis of left eye 09/20/2018 [facility] (myocardial infarction) ([facility]) Opioid dependence, uncomplicated ([facility]) 10/27/2021 Presence of stent in right coronary artery 10/02/2021 Sciatica Spinal stenosis, lumbar Tobacco abuse Past Surgical History: Procedure Laterality Date ARM SURGERY (HISTORICAL) metal rods in adam upper extremities BACK SURGERY COLONOSCOPY CORONARY ANGIOPLASTY WITH STENT PLACEMENT 09/23/2021 DORIS to proximal RCA FRACTURE SURGERY Family History Problem Relation Name Age of Onset Atrial fibrillation Sister Hyperlipidemia Mother Obesity Mother Asthma Mother Depression Mother Obesity Sister Depression Sister Arthritis Mother High Blood Pressure Maternal Grandmother Diabetes Mother Asthma Maternal Grandmother Substance Abuse Sister Diabetes Father Stroke Paternal Grandfather Arthritis Sister High Blood Pressure Mother Vision loss Maternal Grandmother Diabetes Maternal Grandmother Stroke Maternal Grandmother Arthritis Maternal Grandfather Arthritis Maternal Grandmother Cancer Maternal Grandfather Depression Maternal Grandmother Cancer Brother Diabetes Paternal Grandfather Stroke Paternal Grandmother Diabetes Maternal Grandfather Obesity Maternal Grandmother Depression Maternal Grandfather Arthritis Paternal Grandmother Vision loss Maternal Grandfather Depression Paternal Grandmother Arthritis Paternal Grandfather Review of Systems Review of Systems Constitutional: Positive for appetite change, diaphoresis and fatigue. Gastrointestinal: Positive for nausea. Negative for diarrhea and vomiting. Musculoskeletal: Positive for back pain. Neurological: Positive for tremors and headaches. Negative for seizures. Psychiatric/Behavioral: Positive for sleep disturbance. All other systems reviewed and are negative. Physicial Exam Vitals: 04/17/23 0622 04/17/23 0808 04/17/23 0811 04/17/23 1134 BP: (!) 156/114 (!) 151/102 (!) 151/102 (!) 147/114 BP Location: Left arm Left arm Patient Position: Sitting Sitting Pulse: 106 108 110 88 Resp: 18 18 16 Temp: (!) 35.9 C (96.6 F) (!) 35.1 C (95.1 F) (!) 35.2 C (95.3 F) TempSrc: Temporal Temporal Temporal SpO2: 99% 91% 95% Weight: Height: Physical Exam Vitals and nursing note reviewed. Constitutional: General: He is sleeping. Appearance: He is diaphoretic. Comments: Disheveled HENT: Mouth/Throat: Mouth: Mucous membranes are dry. Cardiovascular: Rate and Rhythm: Normal rate. Pulmonary: Effort: Pulmonary effort is normal. Abdominal: General: There is no distension. Musculoskeletal: General: Normal range of motion. Skin: Coloration: Skin is not pale. Neurological: Mental Status: He is oriented to person, place, and time and easily aroused. Motor: Tremor present. No seizure activity. Psychiatric: Attention and Perception: He does not perceive auditory or visual hallucinations. Mood and Affect: Mood is anxious. Affect is flat. Speech: Speech normal. Behavior: Behavior is cooperative. Thought Content: Thought content does not include homicidal or suicidal ideation. Cognition and Memory: Cognition and memory normal. Judgment: Judgment is impulsive and inappropriate. Labs Last 24 hours: Recent Results (from the past 24 hour(s)) ECG 12 lead Collection Time: 04/16/23 9:39 PM Result Value Ref Range Heart Rate 95 bpm QRSD Interval 110 ms QT Interval 417 ms QTC Interval 526 ms P [place] 44 degrees QRS [place] 30 degrees T Wave [place] 137 degrees [place] Interval 160 ms SARS-CoV-2, Flu A/B, and RSV Combo Collection Time: 04/16/23 10:22 PM Specimen: Nasopharynx; Swab Result Value Ref Range SARS-CoV-2 Not Detected Not Detected Respiratory Syncytial Virus Not Detected Not Detected Influenza A Not Detected Not Detected Influenza B Not Detected Not Detected D-dimer, quantitative Collection Time: 04/16/23 10:25 PM Result Value Ref Range D-DIMER, INNOVANCE 0.42 <0.50 mg/L CBC auto differential Collection Time: 04/16/23 10:25 PM Result Value Ref Range Auto WBC 10.0 3.6 - 10.7 10*3/uL RBC 5.27 4.40 - 5.90 10*6/uL Hemoglobin 15.4 13.0 - 18.0 g/dL Hematocrit 45.0 40.0 - 52.0 % MCV 85.4 80.0 - 98.0 fL MCH 29.2 26.0 - 34.0 pg MCHC 34.2 32.0 - 36.0 % RDW 22.2 (H) 11.5 - 14.5 % Platelets 335 140 - 440 10*3/uL MPV 8.6 7.4 - 12.4 fL Neutrophils Relative 64.2 40.0 - 80.0 % Lymphocytes Relative 25.7 20.0 - 40.0 % Monocytes Relative 8.3 2.0 - 10.0 % Eosinophils Relative 0.5 (L) 1.0 - 6.0 % Basophils Relative 1.0 0.0 - 2.0 % Immature Grans % 0.3 (H) <=0.0 % Neutrophils Absolute 6.4 1.8 - 7.0 10*3/uL Lymphocytes Absolute 2.6 1.0 - 4.3 10*3/uL Monocytes Absolute 0.8 0.0 - 0.8 10*3/uL Eosinophils Absolute 0.1 0.0 - 0.5 10*3/uL Basophils Absolute 0.1 0.0 - 0.2 10*3/uL Immature Grans Absolute 0.0 <=0.0 10*3/uL Basic metabolic panel Collection Time: 04/16/23 10:25 PM Result Value Ref Range SODIUM 134 (L) 135 - 145 mmol/L POTASSIUM 5.7 (H) 3.5 - 5.1 mmol/L CHLORIDE 93 (L) 98 - 107 mmol/L CARBON DIOXIDE 30 22 - 30 mmol/L UREA NITROGEN 14 9 - 20 mg/dL CREATININE 0.73 0.66 - 1.25 mg/dL GLUCOSE 95 70 - 100 mg/dL CALCIUM 8.2 (L) 8.4 - 10.4 mg/dL ANION GAP 12 3 - 13 mmol/L eGFR >90.0 >60.0 mL/min/1.73m*2 Ethanol Collection Time: 04/16/23 10:25 PM Result Value Ref Range ETHANOL IN SER/PLAS >0.300 (H) 0.000 - 0.010 g/dL Troponin, with Serial Reflex Collection Time: 04/16/23 10:25 PM Result Value Ref Range TROPONIN I 0.022 <0.034 ng/mL NT PRO BNP Collection Time: 04/16/23 10:25 PM Result Value Ref Range NT PRO BNP <20 <20 - 100 pg/mL Hemoglobin A1c Collection Time: 04/16/23 10:25 PM Result Value Ref Range HEMOGLOBIN A1C 4.8 <5.7 % ESTIMATED AVERAGE GLUCOSE 91 mg/dL Troponin I Collection Time: 04/17/23 1:54 AM Result Value Ref Range TROPONIN I <0.012 <0.034 ng/mL Procalcitonin Test Collection Time: 04/17/23 1:54 AM Result Value Ref Range PROCALCITONIN 0.10 (H) 0.00 - 0.09 ng/mL Lipid panel Collection Time: 04/17/23 1:54 AM Result Value Ref Range TRIGLYCERIDE 107 <150 mg/dL CHOLESTEROL 207 (H) <200 mg/dL LOW DENSITY LIPOPROTEIN 102 (H) 0 - <100 mg/dL HDL CHOLESTEROL 84 (H) 40 - 60 mg/dL CHOL/HDL 2 Troponin, with Serial Reflex Collection Time: 04/17/23 3:21 AM Result Value Ref Range TROPONIN I <0.012 <0.034 ng/mL CBC auto differential Collection Time: 04/17/23 3:21 AM Result Value Ref Range Auto WBC 7.6 3.6 - 10.7 10*3/uL RBC 4.64 4.40 - 5.90 10*6/uL Hemoglobin 13.7 13.0 - 18.0 g/dL Hematocrit 41.1 40.0 - 52.0 % MCV 88.8 80.0 - 98.0 fL MCH 29.5 26.0 - 34.0 pg MCHC 33.2 32.0 - 36.0 % RDW 24.9 (H) 11.5 - 14.5 % Platelets 300 140 - 440 10*3/uL MPV 7.1 (L) 7.4 - 12.4 fL nRBC 0.2 0.0 - 2.0 /100 WBCs Basic metabolic panel Collection Time: 04/17/23 3:21 AM Result Value Ref Range SODIUM 135 135 - 145 mmol/L POTASSIUM 3.0 (L) 3.5 - 5.1 mmol/L CHLORIDE 97 (L) 98 - 107 mmol/L CARBON DIOXIDE 26 22 - 30 mmol/L UREA NITROGEN 13 9 - 20 mg/dL CREATININE 0.78 0.66 - 1.25 mg/dL GLUCOSE 150 (H) 70 - 100 mg/dL CALCIUM 7.6 (L) 8.4 - 10.4 mg/dL ANION GAP 12 3 - 13 mmol/L eGFR >90.0 >60.0 mL/min/1.73m*2 Man Differential Collection Time: 04/17/23 3:21 AM Result Value Ref Range Adjusted WBC 7.6 3.6 - 10.7 10*3/uL Neutrophils % 58 40 - 80 % Lymphocytes % 33 20 - 40 % Monocytes % 9 2 - 10 % Absolute Neutrophil Count 4.4 1.8 - 7.0 10*3/uL Lymphocytes Absolute 2.5 1.0 - 4.3 10*3/uL Monocytes Absolute 0.7 0.0 - 0.8 10*3/uL Anisocytosis Slight (A) (none) Poikilocytes Slight (A) (none) Macrocytes Slight (A) (none) Ovalocytes Slight (A) (none) WBC Morphology Normal PLT Morphology Normal Total Counted 100 Neutrophils Manual 58 Lymphocytes Manual 33 Monocytes Manual 9 Differential Method Automated differential reported after manual slide review Magnesium Collection Time: 04/17/23 3:21 AM Result Value Ref Range MAGNESIUM 1.4 (L) 1.6 - 2.3 mg/dL Troponin I Collection Time: 04/17/23 8:20 AM Result Value Ref Range TROPONIN I <0.012 <0.034 ng/mL Hepatic function panel Collection Time: 04/17/23 8:20 AM Result Value Ref Range BILIRUBIN, TOTAL 0.7 0.2 - 1.3 mg/dL BILIRUBIN, DIRECT 0.0 0.0 - 0.3 mg/dL ALKALINE PHOSPHATASE 120 38 - 126 U/L AST (SGOT) 134 (H) 15 - 46 U/L ALT 62 (H) 0 - 49 U/L ALBUMIN 3.4 (L) 3.5 - 5.0 g/dL TOTAL PROTEIN 6.1 (L) 6.3 - 8.2 g/dL C-reactive protein Collection Time: 04/17/23 8:20 AM Result Value Ref Range C REACTIVE PROTEIN 5.3 <10.0 mg/L Medications aspirin, 81 mg, Oral, Daily carvedilol, 6.25 mg, Oral, BID WC enoxaparin, 40 mg, SubCUTAneous, Daily famotidine, 20 mg, Oral, BID folic acid, 1 mg, Oral, Daily [START ON 04/18/2023] influenza, 0.5 mL, IntraMUSCular, Once [Held by provider] lisinopril, 5 mg, Oral, Daily magnesium sulfate, 2,000 mg, IntraVENous, q8h melatonin, 3 mg, Oral, Nightly methocarbamol, 500 mg, Oral, 3 times per day mometasone-formoterol, 2 puff, Inhalation, BID PHENobarbital, 97.2 mg, Oral, Q4H Followed by PHENobarbital, 64.8 mg, Oral, Q4H Followed by [START ON 04/18/2023] PHENobarbital, 64.8 mg, Oral, q6h Followed by [START ON 04/19/2023] PHENobarbital, 32.4 mg, Oral, TID potassium chloride CR, 20 mEq, Oral, TID WC sodium chloride 0.9%, 5-40 mL, IntraVENous, q12h thiamine, 100 mg, Oral, TID PRN medications: acetaminophen OR acetaminophen, ipratropium-albuterol, LORazepam OR LORazepam OR LORazepam OR LORazepam OR LORazepam OR LORazepam OR LORazepam OR LORazepam, ondansetron ODT OR ondansetron, polyethylene glycol (PEG) 3350, sodium chloride, sodium chloride 0.9% Assessment Severe alcohol use disorder Opioid use disorder on MAT methadone Elevated liver enzymes (likely alcohol related) The last use of alcohol was 04/16/2023. Plan Continue phenobarbital taper to manage withdrawal symptoms: 97.2 mg every 4 hours for today. Thiamine/folic acid PRN medications for withdrawal symptom management. CI W A scores per unit protocol. Anticipated to be detoxed in 3-4 days pending: - resolution of withdrawal symptoms. - labs/tests/tasks ordered: None - oracle application consultant recommendations: Holding Methadone secondary to prolonged QTc interval on the EKG Recovery plan: Will discuss recovery plan as patient stabilizes Remaining medical management per primary team. Thank you for this consultation. Will follow. DARA Burger NP Addiction Medicine 04/17/2023 at 1:19 PM Note: Narrative portions of note written using [employer] dictation software. Efforts are made to dictate clearly and proofread but errors in dictation still may occur. Please reach out to author with any clarifying questions. documented in this encounter [facility] [place] 04-17-2023 History of Present illness Narrative Images from the original note were not included. Hospitalist Summary Note (admitted after midnight) 04/17/2023 8:48 AM This is a non-billable note. [phone]: Please page [facility] night Hospitalist for any issues. Subjective: Admit Date: 04/16/2023 PCP: KAY KERR Room#: W5-530/W5-530 A Interval note for patient admission after midnight. Patient admitted 04/16/2023 for anxiety, ?PNA. Chronic medical conditions include CAD with prior VA/PCI/CABG, polysubstance abuse (AUD w/ hx withdrawal, opioids, tobacco/vaping), COPD, HTN, HLD, CBP/DDD/lumbar spinal stenosis/sciatica (on methadone), depression & anxiety, nonadherence. Initially presented with three days of chest tightness and worsening anxiety. Reports not taking cardiac medications, but has been treating anxiety with EtOH, does endorse stressor that preceded sx onset (father in ICU). Inebriated on presentation (EtOH 0.303), ?infiltrate LLL (no respiratory sx, no fever, no leukocytosis, PCT only 0.1 [ULN 0.09]; had severe PNA with respiratory failure in with bibasilar opacities at that time). Serial trops neg. Echo (): Limited echo due to patient non-cooperation. Findings below via limited images. No severe abnormalities noted on this study. Left Ventricle: Left ventricle size is normal. Mildly increased wall thickness. Normal left ventricular systolic function. The EF by visual approximation is 60%. Normal wall motion. Right Ventricle: Not well visualized. Right ventricle size is normal. Normal systolic function visually. CXR portable: Mild infiltrate or atelectasis left lung base. Anxiety w/ chest tightness Hypomagnesemia Hyperkalemia --> Hypokalemia ?Hypocalcemia ?CAP -- low suspicion of any bacterial PNA given studies completed thus far Current plan, with any updates: - phenobarb + CIWA + ADM consult - replete Mg via IV, then K via PO - add-on hepatic panel & CRP - dc echo, limited echo was completed only two months ago and ACS eval negative - methadone does not appear on PDMP so will need to verify reported methadone dose - pneumo PCR ordered without sputum culture, fixed; UrAg already ordered not yet collected; also needs RVP since initial test was COVID/flu/RSV only (will try to add-on, but may need new collection since was at satellite ED originally) - dc the antibx for now, unconvincing of presence of PNA, will await the above ordered labs - unless patient willing to undergo medically-managed detox (hopefully he is, will see how things go with ADM) likely could be discharged later today since the AUD is the primary driving of admission at present time Andrea Hanks MD Division of Hospitalist Medicine Inpatient Medical Services/[facility] documented in this encounter [facility] 04-17-2023 Nurse Note Patient arrived to 5W. Vitals taken, heart monitor on, troponin drawn. Patient CIWA 8. Dr. Huerta notified of arrival. Patient states he takes 125 mg of methadone in the mornings. Patient reports drinking 15 shots of whiskey a day and his last drink was 1300 on 04/16/2023 [facility] [place] 04-17-2023 Plan of care note Problem: Pain Goal: My pain/discomfort is manageable Outcome: Progressing Problem: Safety Goal: Patient will be injury free during hospitalization Outcome: Progressing Goal: I will remain free of falls Outcome: Progressing Problem: Daily Care Goal: Daily care needs are met Outcome: Progressing Problem: Psychosocial Needs Goal: Demonstrates ability to cope with hospitalization/illness Outcome: Progressing Goal: Collaborate with me, my family, and caregiver to identify my specific goals Outcome: Progressing [facility] [place] 04-17-2023 Miscellaneous Notes Problem: Pain Goal: My pain/discomfort is manageable Outcome: Progressing Problem: Safety Goal: Patient will be injury free during hospitalization Outcome: Progressing Goal: I will remain free of falls Outcome: Progressing Problem: Daily Care Goal: Daily care needs are met Outcome: Progressing Problem: Psychosocial Needs Goal: Demonstrates ability to cope with hospitalization/illness Outcome: Progressing Goal: Collaborate with me, my family, and caregiver to identify my specific goals Outcome: Progressing documented in this encounter [facility] [place] 04-17-2023 History and physical note Images from the original note were not included. Attending History and Physical Admit Date: 04/16/2023 PCP: KAY KERR CHIEF COMPLAINT: Anxiety chest pain History Obtained From: Patient HISTORY OF PRESENT ILLNESS: El is a 42 y.o. male with past medical history below who presents with chief complaint listed above. Today he presents to the [facility] emergency department with chest tightness and anxiety Patient has a history of heart attack, hypertension hyperlipidemia for which she is supposed to be taking medicine but is not actually taking it. He smokes a lot of cigarettes and smells strongly of cigarettes at this time. History of CABG surgery in 2021. Family history of heart disease. Patient also has anxiety which he is self-medicating with alcohol. Patient endorses substernal nonradiating chest heaviness for the last 3 days. Heart rate in the 110s. He is very anxious and nervous. Not short of breath, not hypoxic. He says that he used to be on anxiety medication but he did not feel like it was working so he started drinking instead. Denies any nausea or vomiting. He has been extra anxious lately since his father was admitted to the ICU and he thinks this is related to his chest pain. However he does have a history of multivessel heart disease and CABG surgery and has not taken the medications he is supposed to be taking to optimize his heart health. No syncope no presyncope no trauma no injuries no cough no cyanosis no retractions no hemoptysis. No calf pain bilaterally. Mother is at bedside, seems appropriately concerned. ED COURSE: CXR 1. Mild infiltrate or atelectasis left lung base. EKG Sinus No acute Ischemic injury pattern Medications albuterol (2.5 MG/3ML) 0.083% nebulizer solution 2.5 mg (has no administration in time range) aspirin chewable tablet 324 mg (has no administration in time range) LORazepam (Ativan) injection 1 mg (has no administration in time range) sodium chloride 0.9 % bolus 1,000 mL (has no administration in time range) ED workup consisted of ordering/reviewing: D-dimer to rule out pulmonary embolism, patient would have risk of PE less than 2% if D-dimer is negative. Patient has a HEART score of 4 if his first troponin is negative, patient would be a good candidate for the CDU given his history of multivessel heart disease and chest tightness; he is higher risk for heart disease than the average patient and his age. We will also get a chest x-ray to look for pneumonia, COVID-19 RSV influenza testing NEAGTIVE, aspirin to protect his heart and Ativan/Phenobarbital for his anxiety/alcohol Patient's care was impacted by Hypertension, Heart disease, and hyperlipidemia, medication noncompliance. Patient's care was significantly impacted by social determinants of health including cigarette smoking. Old medical Record Review as below : Admit date: 01/29/2023 Discharge date: 02/03/2023 Discharge Diagnoses: Community-acquired pneumonia due to Moraxella catarrhalis on the background of vaping associated acute lung injury (marijuana) Severe sepsis due to above-elevated lactate, leukocytosis and tachycardia Acute hypoxic respiratory failure due to above and COPD exacerbation Acute COPD exacerbation Severe ethanol abuse with withdrawal effects Will admit for further evaluation and management. 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 Drug abuse ([facility]) ([facility]) Gastroenteritis 11/23/2018 Last Assessment & Plan: Predominantly vomiting; ?food poisoning vs viral gastroenteritis IV hydration PRN antiemetics Hyperlipidemia Hypertension Iritis of left eye 09/20/2018 [facility] (myocardial infarction) ([facility]) Opioid dependence, uncomplicated ([facility]) 10/27/2021 Presence of stent in right coronary artery 10/02/2021 Sciatica Spinal stenosis, lumbar Tobacco abuse Past Surgical History: Past Surgical History: Procedure Laterality Date ARM SURGERY (HISTORICAL) metal rods in adam upper extremities BACK SURGERY COLONOSCOPY CORONARY ANGIOPLASTY WITH STENT PLACEMENT 09/23/2021 DORIS to proximal RCA FRACTURE SURGERY Social History: Social History Socioeconomic History Marital status: Single Spouse name: Not on file Number of children: Not on file Years of education: Not on file Highest education level: Not on file Occupational History Not on file Tobacco Use Smoking status: Every Day Packs/day: 2 Types: Cigarettes Smokeless tobacco: Current Vaping Use Vaping Use: Every day Substance and Sexual Activity Alcohol use: Yes Comment: 15 shots of whiskey Drug use: Yes Types: Marijuana Comment: uses methadone, also buys pain meds on the streets Sexual activity: Not on file Other Topics Concern Not on file Social History Narrative Not on file Social Determinants of Health Financial Resource Strain: Not on file Food Insecurity: Not on file Transportation Needs: No Transportation Needs (09/18/2022) PRAPARE - Transportation Lack of Transportation (Medical): No Lack of Transportation (Non-Medical): No Physical Activity: Not on file Stress: Not on file Social Connections: Not on file Intimate Partner Violence: Not At Risk (04/17/2023) Humiliation, Afraid, Rape, and Kick questionnaire Fear of Current or Ex-Partner: No Emotionally Abused: No Physically Abused: No Sexually Abused: No Housing Stability: Low Risk (09/18/2022) Housing Stability Vital Sign Unable to Pay for Housing in the Last Year: No Number of Places Lived in the Last Year: 1 Unstable Housing in the Last Year: No Family History: Family History Problem Relation Name Age of Onset Atrial fibrillation Sister Hyperlipidemia Mother Obesity Mother Asthma Mother Depression Mother Obesity Sister Depression Sister Arthritis Mother High Blood Pressure Maternal Grandmother Diabetes Mother Asthma Maternal Grandmother Substance Abuse Sister Diabetes Father Stroke Paternal Grandfather Arthritis Sister High Blood Pressure Mother Vision loss Maternal Grandmother Diabetes Maternal Grandmother Stroke Maternal Grandmother Arthritis Maternal Grandfather Arthritis Maternal Grandmother Cancer Maternal Grandfather Depression Maternal Grandmother Cancer Brother Diabetes Paternal Grandfather Stroke Paternal Grandmother Diabetes Maternal Grandfather Obesity Maternal Grandmother Depression Maternal Grandfather Arthritis Paternal Grandmother Vision loss Maternal Grandfather Depression Paternal Grandmother Arthritis Paternal Grandfather Medications Prior to Admission: No current facility-administered medications on file prior to encounter. Current Outpatient Medications on File Prior to Encounter Medication Sig Dispense Refill aspirin 81 MG EC tablet Take 81 mg by mouth in the morning. carvedilol (Coreg) 12.5 MG tablet LISINOPRIL PO Take by mouth. methocarbamol (Robaxin) 500 MG tablet Take 2 tablets (1,000 mg) by mouth in the morning and 2 tablets (1,000 mg) at noon and 2 tablets (1,000 mg) before bedtime. Do all this for 10 days. 60 tablet 0 Allergies: Allergies Allergen Reactions Nickel Rash REVIEW OF SYSTEMS: Constitutional: Negative for fever, chills, activity change and unexpected weight change. HEENT: Negative for congestion, postnasal drip and sneezing. Eyes: Negative for itching and visual disturbance. Respiratory: Negative for apnea, cough, choking wheezing and stridor. Cardiovascular: Negative for chest pain. Gastrointestinal: Negative for nausea, vomiting, abdominal pain, diarrhea and blood in stool. Genitourinary: Negative for dysuria, frequency and flank pain. Musculoskeletal: Negative for myalgias and joint swelling. Skin: Negative for rash. Neurological: Negative for dizziness, tremors, seizures, syncope, facial asymmetry, speech difficulty, weakness, numbness and headaches. Hematological: Negative for adenopathy. Psychiatric/Behavioral: Negative for suicidal ideas, behavioral problems, self-injury and dysphoric mood. Vitals: BP (!) 140/93 Pulse (!) 113 Temp 36.1 C (96.9 F) (Temporal) Resp 20 Ht 1.778 m (5' 10) Wt 92.3 kg (203 lb 8 oz) SpO2 94% BMI 29.20 kg/m BMI Classification: Pulse Ox: SpO2 Av.8 % Min: 85 % Max: 94 % Supplemental O2: PHYSICAL EXAM: General: Disheveled adult male sitting upright in bed, rubbing his face with his hands HENT: Head NCAT, EOMI with no erythema, swelling or discharge. Pupils 4 mm PERRL. Oropharyngeal mucus membranes dry, pink, no exudate Neck: Full ROM, supple, no rigidity Cardio: Tachycardic in the low 100s, nl s1 s2 no m/r/g, extremities warm, dry, well perfused, non-edematous, 2+ bilateral radial pulses, 2+ bilateral TP pulses Lungs: Scattered wheezes and rhonchi in all worrell. No cough no cyanosis no retractions. Good chest excursion, good air movement. Speaks in complete sentences. SaO2 92% on room air Abdomen: Soft, NT, ND, non-rigid, BS x 4 normal, no flank pain to palpation bilaterally, no CVA tenderness to palpation bilaterally MSK: No midline cervical thoracic or lumbar spine pain to palpation Chest wall stable and nontender. 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 Denies SI or HI. Denies auditory or visual hallucinations, not responding to internal stimuli, not psychotic. Verbally consolable and redirectable, but feels like his anxiety medication does not work DATA: CBC: Recent Labs 04/16/232224 WBC 10.0 RBC 5.27 HGB 15.4 HCT 45.0 MCV 85.4 RDW 22.2* PLT 335 BMP: Recent Labs 04/16/23 2225 NA 134* K 5.7* CL 93* CO2 30 BUN 14 CREATININE 0.73 GLUCOSE 95 CALCIUM 8.2* ANIONGAP 12 LIVER PROFILE:No results for input(s): AST, ALT, BILITOT, ALKPHOS, PROT in the last 72 hours. No lab exists for component: LABALBU PT/INR: No results for input(s): PROTIME, INR in the last 72 hours. CARDIAC ENZYMES: Recent Labs 04/16/232224 TROPONINI 0.022 Procalcitonin: No results found for: PROCAL Urine Culture: No results found for this or any previous visit. COVID-19 PCR: No results for input(s): COVID19 in the last 72 hours. I reviewed: [x] laboratory results [x] radiographic results At the time of today's encounter. Pt was advised of the results. IMPRESSION: Data: (CAT1) Reviewed 3 or more notes from different specialty or health system (each=1). (CAT1) Reviewed 3 or more labs/studies ordered by another provider not previously counted (each=1, panels count as 1). (CAT1) Ordered 2 new labs and/or studies (each=1, panels count as 1). (LOW: 2x CAT1 or independent historian MOD: 3x CAT1 or 1x CAT3 EXTENSIVE: 3x CAT1 and 1x CAT3) 42-year-old male presents for chest tightness and anxiety, self-medicating with alcohol, noncompliance with his heart disease medications. Assessment Discussed management with the ED provider and agree with hospitalization. Acute, acute on chronic, unstable/uncontrolled chronic problems/diagnoses: 1. Chest pain 2. Possible LLL Pneumonia 3. Noncompliance with medications only takes his methadone currently 4. Anxiety 5. Cigarette smoker Current 6. Alcoholism 7- Hyperkalemia 5.7 No peaked T waves on EKG Stable chronic problems affecting care, new non-acute diagnoses: COPD Severe ethanol abuse with withdrawal effects Coronary artery disease status post PCI Chronic pain therapy due to methadone states he takes 125 of methadone every morning Tobacco dependence Obesity Plan As a result of the above findings & factors, the following mgmt was pursued: -Admit to IMS -IV ABX -CIWA -Check urin antigen Pneumonia PCR Procalcitonin -Addiction medicine consult -tele serial trop 2d echo -Neb rx -Fall precaution -Utoc -advised alcohol and smoking cessation -check proBNP -Advised complaince with medication -lokelma and repeat k -primary team to confirm methadone dose in am -PT/OT eval/increase activity -am labs, replace lytes prn -vitals per routine -home meds as ordered - Delirium precautions: increase activity, limit nighttime disturbances, and avoid anticholinergic meds, benzos, etc -DVT prophylaxis: [x] Lovenox [] Heparin [] SCDs [x] Encourage ambulation [] Already on Anticoagulation -see below for additional orders, further recommendations to follow Orders Placed This Encounter Procedures SARS-CoV-2, Flu A/B, and RSV Combo XR chest 1 view D-dimer, quantitative CBC auto differential Basic metabolic panel Ethanol Troponin, with Serial Reflex NT PRO BNP Troponin I Troponin I Vital signs Nursing communication Please do Home medication reconciliation Telemetry monitoring for Other Indication; chest pain Inpatient consult to Hospitalist--[facility] Pulse oximetry, continuous ECG 12 lead Admit to inpatient Code status: Full Anticipated Discharge - Date - TBD - Location - TBD - Pending the following - Labs/Images/Hospital course/PT OT evaluation Total time spent (which include face to face and non face to face encounters) : 75 minutes. Toxic drug monitoring/narrow therapeutic index drug monitoring : # Drug name : # Route administered : oral # Method of monitoring : Labs Extended Emergency Contact Information Primary Emergency Contact: Ruth Maurer Relation: Child Secondary Emergency Contact: LuisLouise Mobile Relation: Sister Preferred language: Indian Toys Inspector needed? No Mother: Chhaya Maurer Mobile Please forward a copy of this H&P to the patient's PCP. Thank you. Electronically signed by Anastacio Huerta MD at 1:56 AM [employer] Work Phone: 04-17-2023 History and physical note Images from the original note were not included. Attending History and Physical Admit Date: 04/16/2023 PCP: KAY KERR CHIEF COMPLAINT: Anxiety chest pain History Obtained From: Patient HISTORY OF PRESENT ILLNESS: El is a 42 y.o. male with past medical history below who presents with chief complaint listed above. Today he presents to the [facility] emergency department with chest tightness and anxiety Patient has a history of heart attack, hypertension hyperlipidemia for which she is supposed to be taking medicine but is not actually taking it. He smokes a lot of cigarettes and smells strongly of cigarettes at this time. History of CABG surgery in 2021. Family history of heart disease. Patient also has anxiety which he is self-medicating with alcohol. Patient endorses substernal nonradiating chest heaviness for the last 3 days. Heart rate in the 110s. He is very anxious and nervous. Not short of breath, not hypoxic. He says that he used to be on anxiety medication but he did not feel like it was working so he started drinking instead. Denies any nausea or vomiting. He has been extra anxious lately since his father was admitted to the ICU and he thinks this is related to his chest pain. However he does have a history of multivessel heart disease and CABG surgery and has not taken the medications he is supposed to be taking to optimize his heart health. No syncope no presyncope no trauma no injuries no cough no cyanosis no retractions no hemoptysis. No calf pain bilaterally. Mother is at bedside, seems appropriately concerned. ED COURSE: CXR 1. Mild infiltrate or atelectasis left lung base. EKG Sinus No acute Ischemic injury pattern Medications albuterol (2.5 MG/3ML) 0.083% nebulizer solution 2.5 mg (has no administration in time range) aspirin chewable tablet 324 mg (has no administration in time range) LORazepam (Ativan) injection 1 mg (has no administration in time range) sodium chloride 0.9 % bolus 1,000 mL (has no administration in time range) ED workup consisted of ordering/reviewing: D-dimer to rule out pulmonary embolism, patient would have risk of PE less than 2% if D-dimer is negative. Patient has a HEART score of 4 if his first troponin is negative, patient would be a good candidate for the CDU given his history of multivessel heart disease and chest tightness; he is higher risk for heart disease than the average patient and his age. We will also get a chest x-ray to look for pneumonia, COVID-19 RSV influenza testing NEAGTIVE, aspirin to protect his heart and Ativan/Phenobarbital for his anxiety/alcohol Patient's care was impacted by Hypertension, Heart disease, and hyperlipidemia, medication noncompliance. Patient's care was significantly impacted by social determinants of health including cigarette smoking. Old medical Record Review as below : Admit date: 01/29/2023 Discharge date: 02/03/2023 Discharge Diagnoses: Community-acquired pneumonia due to Moraxella catarrhalis on the background of vaping associated acute lung injury (marijuana) Severe sepsis due to above-elevated lactate, leukocytosis and tachycardia Acute hypoxic respiratory failure due to above and COPD exacerbation Acute COPD exacerbation Severe ethanol abuse with withdrawal effects Will admit for further evaluation and management. 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 Drug abuse ([facility]) ([facility]) Gastroenteritis 11/23/2018 Last Assessment & Plan: Predominantly vomiting; ?food poisoning vs viral gastroenteritis IV hydration PRN antiemetics Hyperlipidemia Hypertension Iritis of left eye 09/20/2018 [facility] (myocardial infarction) ([facility]) Opioid dependence, uncomplicated ([facility]) 10/27/2021 Presence of stent in right coronary artery 10/02/2021 Sciatica Spinal stenosis, lumbar Tobacco abuse Past Surgical History: Past Surgical History: Procedure Laterality Date ARM SURGERY (HISTORICAL) metal rods in adam upper extremities BACK SURGERY COLONOSCOPY CORONARY ANGIOPLASTY WITH STENT PLACEMENT 09/23/2021 DORIS to proximal RCA FRACTURE SURGERY Social History: Social History Socioeconomic History Marital status: Single Spouse name: Not on file Number of children: Not on file Years of education: Not on file Highest education level: Not on file Occupational History Not on file Tobacco Use Smoking status: Every Day Packs/day: 2 Types: Cigarettes Smokeless tobacco: Current Vaping Use Vaping Use: Every day Substance and Sexual Activity Alcohol use: Yes Comment: 15 shots of whiskey Drug use: Yes Types: Marijuana Comment: uses methadone, also buys pain meds on the streets Sexual activity: Not on file Other Topics Concern Not on file Social History Narrative Not on file Social Determinants of Health Financial Resource Strain: Not on file Food Insecurity: Not on file Transportation Needs: No Transportation Needs (09/18/2022) PRAPARE - Transportation Lack of Transportation (Medical): No Lack of Transportation (Non-Medical): No Physical Activity: Not on file Stress: Not on file Social Connections: Not on file Intimate Partner Violence: Not At Risk (04/17/2023) Humiliation, Afraid, Rape, and Kick questionnaire Fear of Current or Ex-Partner: No Emotionally Abused: No Physically Abused: No Sexually Abused: No Housing Stability: Low Risk (09/18/2022) Housing Stability Vital Sign Unable to Pay for Housing in the Last Year: No Number of Places Lived in the Last Year: 1 Unstable Housing in the Last Year: No Family History: Family History Problem Relation Name Age of Onset Atrial fibrillation Sister Hyperlipidemia Mother Obesity Mother Asthma Mother Depression Mother Obesity Sister Depression Sister Arthritis Mother High Blood Pressure Maternal Grandmother Diabetes Mother Asthma Maternal Grandmother Substance Abuse Sister Diabetes Father Stroke Paternal Grandfather Arthritis Sister High Blood Pressure Mother Vision loss Maternal Grandmother Diabetes Maternal Grandmother Stroke Maternal Grandmother Arthritis Maternal Grandfather Arthritis Maternal Grandmother Cancer Maternal Grandfather Depression Maternal Grandmother Cancer Brother Diabetes Paternal Grandfather Stroke Paternal Grandmother Diabetes Maternal Grandfather Obesity Maternal Grandmother Depression Maternal Grandfather Arthritis Paternal Grandmother Vision loss Maternal Grandfather Depression Paternal Grandmother Arthritis Paternal Grandfather Medications Prior to Admission: No current facility-administered medications on file prior to encounter. Current Outpatient Medications on File Prior to Encounter Medication Sig Dispense Refill aspirin 81 MG EC tablet Take 81 mg by mouth in the morning. carvedilol (Coreg) 12.5 MG tablet LISINOPRIL PO Take by mouth. methocarbamol (Robaxin) 500 MG tablet Take 2 tablets (1,000 mg) by mouth in the morning and 2 tablets (1,000 mg) at noon and 2 tablets (1,000 mg) before bedtime. Do all this for 10 days. 60 tablet 0 Allergies: Allergies Allergen Reactions Nickel Rash REVIEW OF SYSTEMS: Constitutional: Negative for fever, chills, activity change and unexpected weight change. HEENT: Negative for congestion, postnasal drip and sneezing. Eyes: Negative for itching and visual disturbance. Respiratory: Negative for apnea, cough, choking wheezing and stridor. Cardiovascular: Negative for chest pain. Gastrointestinal: Negative for nausea, vomiting, abdominal pain, diarrhea and blood in stool. Genitourinary: Negative for dysuria, frequency and flank pain. Musculoskeletal: Negative for myalgias and joint swelling. Skin: Negative for rash. Neurological: Negative for dizziness, tremors, seizures, syncope, facial asymmetry, speech difficulty, weakness, numbness and headaches. Hematological: Negative for adenopathy. Psychiatric/Behavioral: Negative for suicidal ideas, behavioral problems, self-injury and dysphoric mood. Vitals: BP (!) 140/93 Pulse (!) 113 Temp 36.1 C (96.9 F) (Temporal) Resp 20 Ht 1.778 m (5' 10) Wt 92.3 kg (203 lb 8 oz) SpO2 94% BMI 29.20 kg/m BMI Classification: Pulse Ox: SpO2 Av.8 % Min: 85 % Max: 94 % Supplemental O2: PHYSICAL EXAM: General: Disheveled adult male sitting upright in bed, rubbing his face with his hands HENT: Head NCAT, EOMI with no erythema, swelling or discharge. Pupils 4 mm PERRL. Oropharyngeal mucus membranes dry, pink, no exudate Neck: Full ROM, supple, no rigidity Cardio: Tachycardic in the low 100s, nl s1 s2 no m/r/g, extremities warm, dry, well perfused, non-edematous, 2+ bilateral radial pulses, 2+ bilateral TP pulses Lungs: Scattered wheezes and rhonchi in all worerll. No cough no cyanosis no retractions. Good chest excursion, good air movement. Speaks in complete sentences. SaO2 92% on room air Abdomen: Soft, NT, ND, non-rigid, BS x 4 normal, no flank pain to palpation bilaterally, no CVA tenderness to palpation bilaterally MSK: No midline cervical thoracic or lumbar spine pain to palpation Chest wall stable and nontender. 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 Denies SI or HI. Denies auditory or visual hallucinations, not responding to internal stimuli, not psychotic. Verbally consolable and redirectable, but feels like his anxiety medication does not work DATA: CBC: Recent Labs 04/16/235 WBC 10.0 RBC 5.27 HGB 15.4 HCT 45.0 MCV 85.4 RDW 22.2* PLT 335 BMP: Recent Labs 04/16/23 2225 NA 134* K 5.7* CL 93* CO2 30 BUN 14 CREATININE 0.73 GLUCOSE 95 CALCIUM 8.2* ANIONGAP 12 LIVER PROFILE:No results for input(s): AST, ALT, BILITOT, ALKPHOS, PROT in the last 72 hours. No lab exists for component: LABALBU PT/INR: No results for input(s): PROTIME, INR in the last 72 hours. CARDIAC ENZYMES: Recent Labs 04/16/235 TROPONINI 0.022 Procalcitonin: No results found for: PROCAL Urine Culture: No results found for this or any previous visit. COVID-19 PCR: No results for input(s): COVID19 in the last 72 hours. I reviewed: [x] laboratory results [x] radiographic results At the time of today's encounter. Pt was advised of the results. IMPRESSION: Data: (CAT1) Reviewed 3 or more notes from different specialty or health system (each=1). (CAT1) Reviewed 3 or more labs/studies ordered by another provider not previously counted (each=1, panels count as 1). (CAT1) Ordered 2 new labs and/or studies (each=1, panels count as 1). (LOW: 2x CAT1 or independent historian MOD: 3x CAT1 or 1x CAT3 EXTENSIVE: 3x CAT1 and 1x CAT3) 42-year-old male presents for chest tightness and anxiety, self-medicating with alcohol, noncompliance with his heart disease medications. Assessment Discussed management with the ED provider and agree with hospitalization. Acute, acute on chronic, unstable/uncontrolled chronic problems/diagnoses: 1. Chest pain 2. Possible LLL Pneumonia 3. Noncompliance with medications only takes his methadone currently 4. Anxiety 5. Cigarette smoker Current 6. Alcoholism 7- Hyperkalemia 5.7 No peaked T waves on EKG Stable chronic problems affecting care, new non-acute diagnoses: COPD Severe ethanol abuse with withdrawal effects Coronary artery disease status post PCI Chronic pain therapy due to methadone states he takes 125 of methadone every morning Tobacco dependence Obesity Plan As a result of the above findings & factors, the following mgmt was pursued: -Admit to IMS -IV ABX -CIWA -Check urin antigen Pneumonia PCR Procalcitonin -Addiction medicine consult -tele serial trop 2d echo -Neb rx -Fall precaution -Utoc -advised alcohol and smoking cessation -check proBNP -Advised complaince with medication -lokelma and repeat k -primary team to confirm methadone dose in am -PT/OT eval/increase activity -am labs, replace lytes prn -vitals per routine -home meds as ordered - Delirium precautions: increase activity, limit nighttime disturbances, and avoid anticholinergic meds, benzos, etc -DVT prophylaxis: [x] Lovenox [] Heparin [] SCDs [x] Encourage ambulation [] Already on Anticoagulation -see below for additional orders, further recommendations to follow Orders Placed This Encounter Procedures SARS-CoV-2, Flu A/B, and RSV Combo XR chest 1 view D-dimer, quantitative CBC auto differential Basic metabolic panel Ethanol Troponin, with Serial Reflex NT PRO BNP Troponin I Troponin I Vital signs Nursing communication Please do Home medication reconciliation Telemetry monitoring for Other Indication; chest pain Inpatient consult to Hospitalist--[facility] Pulse oximetry, continuous ECG 12 lead Admit to inpatient Code status: Full Anticipated Discharge - Date - TBD - Location - TBD - Pending the following - Labs/Images/Hospital course/PT OT evaluation Total time spent (which include face to face and non face to face encounters) : 75 minutes. Toxic drug monitoring/narrow therapeutic index drug monitoring : # Drug name : # Route administered : oral # Method of monitoring : Labs Extended Emergency Contact Information Primary Emergency Contact: Ruth Maurer Relation: Child Secondary Emergency Contact: Louise Smith Mobile Relation: Sister Preferred language: Indian Toys Inspector needed? No Mother: Chhaya Maurer Mobile Please forward a copy of this H&P to the patient's PCP. Thank you. Electronically signed by Anastacio Huerta MD at 1:56 AM documented in this encounter [facility] [place] 04-17-2023 Emergency department Note Report given to 5W per request of 4W staff. Caitlin Wise RN 04/17/23 005 [facility] [place] 04-17-2023 Emergency department Note Report given to 5W per request of 4W staff. Caitlin Wise RN 04/17/23 0058 Mom stated she is driving pt to [facility] to continue treatment. Caitlin Wise RN 04/17/23 0046 Report given to DESIREE Saravia. Caitlin Wise RN 04/17/2342 Medication reconciliation completed. Pt could not tell me any medications he takes other than the Methadone. When this RN asked asked about the other medications on his 'home medication' list, pt stated he doesn't take anything other than his methadone. Mom agreed. Caitlin Wise RN 04/17/23 0015 Lab called to advise Alcohol 0.303. and primary notified Rhoda Kim RN 04/16/23 230 EMERGENCY DEPARTMENT ENCOUNTER Pt Name: El Smith Birthdate 1980 Date of evaluation: 04/16/2023 ED Provider: Marquise Nair MD CHIEF COMPLAINT Chief Complaint Patient presents with Anxiety HISTORY OF PRESENT ILLNESS (Location/Symptom, Timing/Onset, Context/Setting, Quality, Duration, Modifying Factors, Severity) Note limiting factors. I wore appropriate PPE for the entirety of this encounter. HPI El Smith is a 42 y.o. who presents to the emergency department with chest tightness and anxiety Patient has a history of heart attack, hypertension hyperlipidemia for which she is supposed to be taking medicine but is not actually taking it. He smokes a lot of cigarettes and smells strongly of cigarettes at this time. History of CABG surgery in 2021. Family history of heart disease. Patient also has anxiety which he is self-medicating with alcohol. Patient endorses substernal nonradiating chest heaviness for the last 3 days. Heart rate in the 110s. He is very anxious and nervous. Not short of breath, not hypoxic. He says that he used to be on anxiety medication but he did not feel like it was working so he started drinking instead. Denies any nausea or vomiting. He has been extra anxious lately since his father was admitted to the ICU and he thinks this is related to his chest pain. However he does have a history of multivessel heart disease and CABG surgery and has not taken the medications he is supposed to be taking to optimize his heart health. No syncope no presyncope no trauma no injuries no cough no cyanosis no retractions no hemoptysis. No calf pain bilaterally. Mother is at bedside, seems appropriately concerned. Nursing Notes were reviewed. 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 Drug abuse ([facility]) ([facility]) Gastroenteritis 11/23/2018 Last Assessment & Plan: Predominantly vomiting; ?food poisoning vs viral gastroenteritis IV hydration PRN antiemetics Hyperlipidemia Hypertension Iritis of left eye 09/20/2018 [facility] (myocardial infarction) ([facility]) Opioid dependence, uncomplicated ([facility]) 10/27/2021 Presence of stent in right coronary artery 10/02/2021 Sciatica Spinal stenosis, lumbar Tobacco abuse SURGICAL HISTORY Past Surgical History: Procedure Laterality Date ARM SURGERY (HISTORICAL) metal rods in adam upper extremities BACK SURGERY COLONOSCOPY CORONARY ANGIOPLASTY WITH STENT PLACEMENT 09/23/2021 DORIS to proximal RCA FRACTURE SURGERY CURRENT MEDICATIONS Previous Medications ASPIRIN 81 MG EC TABLET Take 81 mg by mouth in the morning. CARVEDILOL (COREG) 12.5 MG TABLET LISINOPRIL PO Take by mouth. METHOCARBAMOL (ROBAXIN) 500 MG TABLET Take 2 tablets (1,000 mg) by mouth in the morning and 2 tablets (1,000 mg) at noon and 2 tablets (1,000 mg) before bedtime. Do all this for 10 days. ALLERGIES Nickel FAMILY HISTORY Family History Problem Relation Name Age of Onset Atrial fibrillation Sister Hyperlipidemia Mother Obesity Mother Asthma Mother Depression Mother Obesity Sister Depression Sister Arthritis Mother High Blood Pressure Maternal Grandmother Diabetes Mother Asthma Maternal Grandmother Substance Abuse Sister Diabetes Father Stroke Paternal Grandfather Arthritis Sister High Blood Pressure Mother Vision loss Maternal Grandmother Diabetes Maternal Grandmother Stroke Maternal Grandmother Arthritis Maternal Grandfather Arthritis Maternal Grandmother Cancer Maternal Grandfather Depression Maternal Grandmother Cancer Brother Diabetes Paternal Grandfather Stroke Paternal Grandmother Diabetes Maternal Grandfather Obesity Maternal Grandmother Depression Maternal Grandfather Arthritis Paternal Grandmother Vision loss Maternal Grandfather Depression Paternal Grandmother Arthritis Paternal Grandfather SOCIAL HISTORY Social History Socioeconomic History Marital status: Single Tobacco Use Smoking status: Every Day Packs/day: 2 Types: Cigarettes Smokeless tobacco: Current Vaping Use Vaping Use: Every day Substance and Sexual Activity Alcohol use: Yes Comment: 15 shots of whiskey Drug use: Yes Types: Marijuana Comment: uses methadone, also buys pain meds on the streets Social Determinants of Health Transportation Needs: No Transportation Needs (09/18/2022) PRAPARE - Transportation Lack of Transportation (Medical): No Lack of Transportation (Non-Medical): No Intimate Partner Violence: Not At Risk (09/18/2022) Humiliation, Afraid, Rape, and Kick questionnaire Fear of Current or Ex-Partner: No Emotionally Abused: No Physically Abused: No Sexually Abused: No Housing Stability: Low Risk (09/18/2022) Housing Stability Vital Sign Unable to Pay for Housing in the Last Year: No Number of Places Lived in the Last Year: 1 Unstable Housing in the Last Year: No SCREENINGS HEART Score History: Moderately suspicious ECG: Non-specific repolarization disturbance Age: <45 Risk Factors: >2 risk factors or hx of atherosclerotic disease Troponin: Less than or equal to normal limit HEART Score: 4 PHYSICAL EXAM ED Triage Vitals [04/16/232126] Temp Heart Rate Resp BP 36.8 C (98.2 F) 110 16 (!) 131/106 SpO2 Temp Source Heart Rate Source Patient Position 92 % Oral Monitor Sitting BP Location FiO2 (%) Right arm -- Physical Exam General: Disheveled adult male sitting upright in bed, rubbing his face with his hands. Smells strongly of cigarette smoke. HENT: Head NCAT, EOMI with no erythema, swelling or discharge. Pupils 4 mm PERRL. Oropharyngeal mucus membranes dry, pink, no exudate Neck: Full ROM, supple, no rigidity Cardio: Tachycardic in the low 100s, nl s1 s2 no m/r/g, extremities warm, dry, well perfused, non-edematous, 2+ bilateral radial pulses, 2+ bilateral TP pulses Lungs: Scattered wheezes and rhonchi in all worrell. No cough no cyanosis no retractions. Good chest excursion, good air movement. Speaks in complete sentences. SaO2 92% on room air Abdomen: Soft, NT, ND, non-rigid, BS x 4 normal, no flank pain to palpation bilaterally, no CVA tenderness to palpation bilaterally MSK: No midline cervical thoracic or lumbar spine pain to palpation Chest wall stable and nontender. 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 Denies SI or HI. Denies auditory or visual hallucinations, not responding to internal stimuli, not psychotic. Verbally consolable and redirectable, but feels like his anxiety medication does not work DIAGNOSTIC RESULTS RADIOLOGY (Per Emergency Physician): Interpretation per the Radiologist below, if available at the time of this note: XR chest 1 view (Results Pending) LABS: Labs Reviewed SARS-COV-2, FLU A/B, AND RSV COMBO D-DIMER,QUANTITATIVE CBC WITH AUTO DIFFERENTIAL BASIC METABOLIC PANEL ETHANOL TROPONIN, WITH SERIAL REFLEX NT PRO BNP All other labs were within normal range or not returned as of this dictation. EMERGENCY DEPARTMENT COURSE and DIFFERENTIAL DIAGNOSIS/MDM: Vitals: Vitals: 04/16/23 2127 BP: (!) 131/106 BP Location: Right arm Patient Position: Sitting Pulse: 110 Resp: 16 Temp: 36.8 C (98.2 F) TempSrc: Oral SpO2: 92% Weight: 93.4 kg (206 lb) Height: 1.778 m (5' 10) Medications albuterol (2.5 MG/3ML) 0.083% nebulizer solution 2.5 mg (has no administration in time range) aspirin chewable tablet 324 mg (has no administration in time range) LORazepam (Ativan) injection 1 mg (has no administration in time range) sodium chloride 0.9 % bolus 1,000 mL (has no administration in time range) 42-year-old male presents for chest tightness and anxiety, self-medicating anxiety with alcohol, noncompliance with his heart disease medications MDM elements: The patient presented with chief complaint of see above. The differential diagnosis associated with this patient's presentation includes patient's chest tightness may represent coronary artery disease given that he has a history of previous VA with multivessel CABG and is not taking his medications for his heart health including his hypertension and hypercholesterolemia medication and is still smoking heavily. However it may also be related to anxiety which is likely worsened by the news that his father is in the ICU. Possibility of pulmonary embolism also exists given tachycardia and chest tightness. Our workup consisted of ordering/reviewing: D-dimer to rule out pulmonary embolism, patient would have risk of PE less than 2% if D-dimer is negative. Patient has a HEART score of 4 if his first troponin is negative, patient would be a good candidate for the CDU given his history of multivessel heart disease and chest tightness; he is higher risk for heart disease than the average patient and his age. We will also get a chest x-ray to look for pneumonia, COVID-19 RSV influenza testing, aspirin to protect his heart and Ativan for his anxiety.. To aid in management, I performed an independent interpretation of EKG(s) see below Xray(s) see below Blood work, see below. I also reviewed external records from past medical records in [place] to obtain collateral history. The patient will be admitted to CDU. Patient is in agreement with this plan. Patient's care was impacted by Hypertension, Heart disease, and hyperlipidemia, medication noncompliance. Patient's care was significantly impacted by social determinants of health including cigarette smoking. PROCEDURES: Unless otherwise noted below, none Procedures EKG: I read and interpreted this EKG. My interpretation can be found in the [facility] EKG system. Normal sinus rhythm, no STEMI. 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 Unchanged from previous EKG. D-dimer negative. PE effectively ruled out. Metabolic panel shows no metabolic acidosis, good kidney function, glucose within normal limits. Slight hypocalcemia at 8.2 and minimal hyperkalemia at 5.7. Correcting with IV calcium gluconate Troponin #1 within normal limits at 0.022 BNP negative Normal white blood cell count Not anemic Normal platelet count Alcohol above 300, this squares with patient's report that he is self-medicating his anxiety with alcohol Respiratory PCR panel negative for COVID-19 negative for RSV negative for flu Chest x-ray shows mild infiltrate in left lung base according radiology. On my interpretation, it is very minimal. However we do not want this complicating the patient's ACS rule out picture, so we will start him on IV ceftriaxone and IV azithromycin for CAP. Interpreted by me. Patient does not meet septic criteria. Discussed case with CDU. They do not feel patient is appropriate for their service on account of the pneumonia and the alcoholism i.e. patient is at risk for alcohol withdrawal. No signs of alcohol withdrawal at this time, he is not shaking or hallucinating or agitated, but it is a possibility in the future. Oral phenobarbital added here in the emergency department IMS hospitalist at [facility] paged for admission. Patient will be admitted to Dr. Huerta on measurement and sensing technician for further care. Disposition: Admitted to [facility] CRITICAL CARE TIME FINAL IMPRESSION 1. Chest pain, unspecified type 2. History of VA (myocardial infarction) 3. Noncompliance with medications 4. Anxiety 5. Cigarette smoker 6. Alcoholism ([facility]) ([facility]) 7. Pneumonia of left lower lobe due to infectious organism DISPOSITION Admit 04/16/2023 09:54:08 PM PATIENT REFERRED TO: No follow-up provider specified. DISCHARGE MEDICATIONS: New Prescriptions No medications on file (Comment: Please note this report has been produced using speech recognition software and may contain errors related to that system including errors in grammar, punctuation, and spelling, as well as words and phrases that may be inappropriate. If there are any questions or concerns please feel free to contact the dictating provider for clarification.) Marquise Nair MD (electronically signed) Emergency Medicine Provider Marquise Nair MD 04/16/23 [id number] El Smith, age 42, ambulated to ED3 with mom for a chief complaint of anxiety and chest heaviness. Pt stated he feels like he is going to . Pt stated his anxiety started 3 days ago but has gotten worse today. Pt stated he is currently on methadone and is in rehab for drug use. Pt stated its been awhile since he used drugs but he has been drinking alcohol everyday. Pt didn't state how much when asked but said I haven't been drunk. Vitals obtained. ECG completed. Physician at bedside. documented in this encounter [facility] [place] 04-17-2023 Emergency department Note Mom stated she is driving pt to [facility] to continue treatment. Caitlin Wise RN 04/17/23 0046 [facility] 04-17-2023 Emergency department Note Report given to DESIREE Saravia. Caitlin Wise RN 04/17/2342 [facility] 04-17-2023 Emergency department Note Medication reconciliation completed. Pt could not tell me any medications he takes other than the Methadone. When this RN asked asked about the other medications on his 'home medication' list, pt stated he doesn't take anything other than his methadone. Mom agreed. Caitlin Wise RN 04/17/23 0015 [facility] 04-16-2023 Note NOTE: This result is for medical treatment only. Analysis performed using non-forensic procedures. [facility] [place] 04-16-2023 Emergency department Note Lab called to advise Alcohol 0.303. and primary notified Rhoda Kim RN 04/16/23 876 [facility] 04-16-2023 Emergency department Triage note El Smith, age 42, ambulated to ED3 with mom for a chief complaint of anxiety and chest heaviness. Pt stated he feels like he is going to . Pt stated his anxiety started 3 days ago but has gotten worse today. Pt stated he is currently on methadone and is in rehab for drug use. Pt stated its been awhile since he used drugs but he has been drinking alcohol everyday. Pt didn't state how much when asked but said I haven't been drunk. Vitals obtained. ECG completed. Physician at bedside. [facility] 04-16-2023 Physician Emergency department Note EMERGENCY DEPARTMENT ENCOUNTER Pt Name: El Smith Birthdate 1980 Date of evaluation: 04/16/2023 ED Provider: Marquise Nair MD CHIEF COMPLAINT Chief Complaint Patient presents with Anxiety HISTORY OF PRESENT ILLNESS (Location/Symptom, Timing/Onset, Context/Setting, Quality, Duration, Modifying Factors, Severity) Note limiting factors. I wore appropriate PPE for the entirety of this encounter. HPI El Smith is a 42 y.o. who presents to the emergency department with chest tightness and anxiety Patient has a history of heart attack, hypertension hyperlipidemia for which she is supposed to be taking medicine but is not actually taking it. He smokes a lot of cigarettes and smells strongly of cigarettes at this time. History of CABG surgery in 2021. Family history of heart disease. Patient also has anxiety which he is self-medicating with alcohol. Patient endorses substernal nonradiating chest heaviness for the last 3 days. Heart rate in the 110s. He is very anxious and nervous. Not short of breath, not hypoxic. He says that he used to be on anxiety medication but he did not feel like it was working so he started drinking instead. Denies any nausea or vomiting. He has been extra anxious lately since his father was admitted to the ICU and he thinks this is related to his chest pain. However he does have a history of multivessel heart disease and CABG surgery and has not taken the medications he is supposed to be taking to optimize his heart health. No syncope no presyncope no trauma no injuries no cough no cyanosis no retractions no hemoptysis. No calf pain bilaterally. Mother is at bedside, seems appropriately concerned. Nursing Notes were reviewed. 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 Drug abuse (CMS/HCC) (HCC) Gastroenteritis 11/23/2018 Last Assessment & Plan: Predominantly vomiting; ?food poisoning vs viral gastroenteritis IV hydration PRN antiemetics Hyperlipidemia Hypertension Iritis of left eye 09/20/2018 [facility] (myocardial infarction) ([facility]) Opioid dependence, uncomplicated ([facility]) 10/27/2021 Presence of stent in right coronary artery 10/02/2021 Sciatica Spinal stenosis, lumbar Tobacco abuse SURGICAL HISTORY Past Surgical History: Procedure Laterality Date ARM SURGERY (HISTORICAL) metal rods in adam upper extremities BACK SURGERY COLONOSCOPY CORONARY ANGIOPLASTY WITH STENT PLACEMENT 09/23/2021 DORIS to proximal RCA FRACTURE SURGERY CURRENT MEDICATIONS Previous Medications ASPIRIN 81 MG EC TABLET Take 81 mg by mouth in the morning. CARVEDILOL (COREG) 12.5 MG TABLET LISINOPRIL PO Take by mouth. METHOCARBAMOL (ROBAXIN) 500 MG TABLET Take 2 tablets (1,000 mg) by mouth in the morning and 2 tablets (1,000 mg) at noon and 2 tablets (1,000 mg) before bedtime. Do all this for 10 days. ALLERGIES Nickel FAMILY HISTORY Family History Problem Relation Name Age of Onset Atrial fibrillation Sister Hyperlipidemia Mother Obesity Mother Asthma Mother Depression Mother Obesity Sister Depression Sister Arthritis Mother High Blood Pressure Maternal Grandmother Diabetes Mother Asthma Maternal Grandmother Substance Abuse Sister Diabetes Father Stroke Paternal Grandfather Arthritis Sister High Blood Pressure Mother Vision loss Maternal Grandmother Diabetes Maternal Grandmother Stroke Maternal Grandmother Arthritis Maternal Grandfather Arthritis Maternal Grandmother Cancer Maternal Grandfather Depression Maternal Grandmother Cancer Brother Diabetes Paternal Grandfather Stroke Paternal Grandmother Diabetes Maternal Grandfather Obesity Maternal Grandmother Depression Maternal Grandfather Arthritis Paternal Grandmother Vision loss Maternal Grandfather Depression Paternal Grandmother Arthritis Paternal Grandfather SOCIAL HISTORY Social History Socioeconomic History Marital status: Single Tobacco Use Smoking status: Every Day Packs/day: 2 Types: Cigarettes Smokeless tobacco: Current Vaping Use Vaping Use: Every day Substance and Sexual Activity Alcohol use: Yes Comment: 15 shots of whiskey Drug use: Yes Types: Marijuana Comment: uses methadone, also buys pain meds on the streets Social Determinants of Health Transportation Needs: No Transportation Needs (09/18/2022) PRAPARE - Transportation Lack of Transportation (Medical): No Lack of Transportation (Non-Medical): No Intimate Partner Violence: Not At Risk (09/18/2022) Humiliation, Afraid, Rape, and Kick questionnaire Fear of Current or Ex-Partner: No Emotionally Abused: No Physically Abused: No Sexually Abused: No Housing Stability: Low Risk (09/18/2022) Housing Stability Vital Sign Unable to Pay for Housing in the Last Year: No Number of Places Lived in the Last Year: 1 Unstable Housing in the Last Year: No SCREENINGS HEART Score History: Moderately suspicious ECG: Non-specific repolarization disturbance Age: <45 Risk Factors: >2 risk factors or hx of atherosclerotic disease Troponin: Less than or equal to normal limit HEART Score: 4 PHYSICAL EXAM ED Triage Vitals [04/16/232126] Temp Heart Rate Resp BP 36.8 C (98.2 F) 110 16 (!) 131/106 SpO2 Temp Source Heart Rate Source Patient Position 92 % Oral Monitor Sitting BP Location FiO2 (%) Right arm -- Physical Exam General: Disheveled adult male sitting upright in bed, rubbing his face with his hands. Smells strongly of cigarette smoke. HENT: Head NCAT, EOMI with no erythema, swelling or discharge. Pupils 4 mm PERRL. Oropharyngeal mucus membranes dry, pink, no exudate Neck: Full ROM, supple, no rigidity Cardio: Tachycardic in the low 100s, nl s1 s2 no m/r/g, extremities warm, dry, well perfused, non-edematous, 2+ bilateral radial pulses, 2+ bilateral TP pulses Lungs: Scattered wheezes and rhonchi in all worrell. No cough no cyanosis no retractions. Good chest excursion, good air movement. Speaks in complete sentences. SaO2 92% on room air Abdomen: Soft, NT, ND, non-rigid, BS x 4 normal, no flank pain to palpation bilaterally, no CVA tenderness to palpation bilaterally MSK: No midline cervical thoracic or lumbar spine pain to palpation Chest wall stable and nontender. 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 Denies SI or HI. Denies auditory or visual hallucinations, not responding to internal stimuli, not psychotic. Verbally consolable and redirectable, but feels like his anxiety medication does not work DIAGNOSTIC RESULTS RADIOLOGY (Per Emergency Physician): Interpretation per the Radiologist below, if available at the time of this note: XR chest 1 view (Results Pending) LABS: Labs Reviewed SARS-COV-2, FLU A/B, AND RSV COMBO D-DIMER,QUANTITATIVE CBC WITH AUTO DIFFERENTIAL BASIC METABOLIC PANEL ETHANOL TROPONIN, WITH SERIAL REFLEX NT PRO BNP All other labs were within normal range or not returned as of this dictation. EMERGENCY DEPARTMENT COURSE and DIFFERENTIAL DIAGNOSIS/MDM: Vitals: Vitals: 04/16/23 2127 BP: (!) 131/106 BP Location: Right arm Patient Position: Sitting Pulse: 110 Resp: 16 Temp: 36.8 C (98.2 F) TempSrc: Oral SpO2: 92% Weight: 93.4 kg (206 lb) Height: 1.778 m (5' 10) Medications albuterol (2.5 MG/3ML) 0.083% nebulizer solution 2.5 mg (has no administration in time range) aspirin chewable tablet 324 mg (has no administration in time range) LORazepam (Ativan) injection 1 mg (has no administration in time range) sodium chloride 0.9 % bolus 1,000 mL (has no administration in time range) 42-year-old male presents for chest tightness and anxiety, self-medicating anxiety with alcohol, noncompliance with his heart disease medications MDM elements: The patient presented with chief complaint of see above. The differential diagnosis associated with this patient's presentation includes patient's chest tightness may represent coronary artery disease given that he has a history of previous VA with multivessel CABG and is not taking his medications for his heart health including his hypertension and hypercholesterolemia medication and is still smoking heavily. However it may also be related to anxiety which is likely worsened by the news that his father is in the ICU. Possibility of pulmonary embolism also exists given tachycardia and chest tightness. Our workup consisted of ordering/reviewing: D-dimer to rule out pulmonary embolism, patient would have risk of PE less than 2% if D-dimer is negative. Patient has a HEART score of 4 if his first troponin is negative, patient would be a good candidate for the CDU given his history of multivessel heart disease and chest tightness; he is higher risk for heart disease than the average patient and his age. We will also get a chest x-ray to look for pneumonia, COVID-19 RSV influenza testing, aspirin to protect his heart and Ativan for his anxiety.. To aid in management, I performed an independent interpretation of EKG(s) see below Xray(s) see below Blood work, see below. I also reviewed external records from past medical records in [place] to obtain collateral history. The patient will be admitted to CDU. Patient is in agreement with this plan. Patient's care was impacted by Hypertension, Heart disease, and hyperlipidemia, medication noncompliance. Patient's care was significantly impacted by social determinants of health including cigarette smoking. PROCEDURES: Unless otherwise noted below, none Procedures EKG: I read and interpreted this EKG. My interpretation can be found in the [facility] EKG system. Normal sinus rhythm, no STEMI. 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 Unchanged from previous EKG. D-dimer negative. PE effectively ruled out. Metabolic panel shows no metabolic acidosis, good kidney function, glucose within normal limits. Slight hypocalcemia at 8.2 and minimal hyperkalemia at 5.7. Correcting with IV calcium gluconate Troponin #1 within normal limits at 0.022 BNP negative Normal white blood cell count Not anemic Normal platelet count Alcohol above 300, this squares with patient's report that he is self-medicating his anxiety with alcohol Respiratory PCR panel negative for COVID-19 negative for RSV negative for flu Chest x-ray shows mild infiltrate in left lung base according radiology. On my interpretation, it is very minimal. However we do not want this complicating the patient's ACS rule out picture, so we will start him on IV ceftriaxone and IV azithromycin for CAP. Interpreted by me. Patient does not meet septic criteria. Discussed case with CDU. They do not feel patient is appropriate for their service on account of the pneumonia and the alcoholism i.e. patient is at risk for alcohol withdrawal. No signs of alcohol withdrawal at this time, he is not shaking or hallucinating or agitated, but it is a possibility in the future. Oral phenobarbital added here in the emergency department [facility] hospitalist at [facility] paged for admission. Patient will be admitted to Dr. Huerta on measurement and sensing technician for further care. Disposition: Admitted to [facility] CRITICAL CARE TIME FINAL IMPRESSION 1. Chest pain, unspecified type 2. History of VA (myocardial infarction) 3. Noncompliance with medications 4. Anxiety 5. Cigarette smoker 6. Alcoholism (CMS/HCC) (HCC) 7. Pneumonia of left lower lobe due to infectious organism DISPOSITION Admit 04/16/2023 09:54:08 PM PATIENT REFERRED TO: No follow-up provider specified. DISCHARGE MEDICATIONS: New Prescriptions No medications on file (Comment: Please note this report has been produced using speech recognition software and may contain errors related to that system including errors in grammar, punctuation, and spelling, as well as words and phrases that may be inappropriate. If there are any questions or concerns please feel free to contact the dictating provider for clarification.) Marquise Nair MD (electronically signed) Emergency Medicine Provider Marquise Nair MD 04/16/23 0173 [facility] 02-03-2023 Miscellaneous Notes S/W, follow up Patient left AMA prior to S/W visit. Images from the original note were not included. Care Management Progress Note Weaned off oxygen and is 97% on RA. On po prednisone and po augmentin. Methadone being dosed daily. Po ativan x 2 today. Plan to return to [facility] to continue methadone MAT after discharge. Discharge Milestones and Delays Expected Date/Time: 02/04/[address] discharge order Complete med reconciliation Case mgmt discharge readiness Clinical Stability Diagnsotic Workup Expected Discharge History Expected Date/Time Set By Reviewed At 02/04/2023 HOMA Clark 02/03/2023 11:01 AM 02/04/2023 HOMA Clark 02/02/2023 10:32 AM 02/05/2023 Betsy Montalvo MD 02/01/2023 11:40 AM 02/04/2023 HOMA Clark 02/01/2023 10:06 AM 02/03/2023 HOMA Clark 01/31/2023 10:26 AM 02/03/2023 Maral Olivarez APRN - SWITCHBOARD CLERK 01/29/2023 9:50 PM 02/03/2023 Maral Olivarez APRN - SWITCHBOARD CLERK 01/29/2023 7:39 PM Length of Stay (Days): 5 GMLOS: No GMLOS Documented . Images from the original note were not included. Care Management Progress Note Patient remains on ICU s/p ARF with hypoxia related to vape pen damage. Clinical updates: Mentation is improved today, having normal conversations with staff. Add Med did Cons yesterday, plan for [facility] or [facility]. Discharge plan: Home with outpatient addiction counseling Discharge obstacles: Awaiting clinical stability TCC will continue to follow. Discharge Milestones and Delays Expected Date/Time: 02/04/[address] discharge order Complete med reconciliation Case mgmt discharge readiness Clinical Stability Diagnsotic Workup Expected Discharge History Expected Date/Time Set By Reviewed At 02/04/2023 HOMA Clark 02/02/2023 10:32 AM 02/05/2023 Betsy Montalvo MD 02/01/2023 11:40 AM 02/04/2023 HOMA Clark 02/01/2023 10:06 AM 02/03/2023 HOMA Clark 01/31/2023 10:26 AM 02/03/2023 Maral Olivarez APRN - SWITCHBOARD CLERK 01/29/2023 9:50 PM 02/03/2023 Maral Olivarez APRN - SWITCHBOARD CLERK 01/29/2023 7:39 PM Length of Stay (Days): 4 GMLOS: No GMLOS Documented ICU Transfer Checklist Transfer Med Reconciliation (resume home meds if able, convert to PO if able) Complete Antibiotics (name, indication, duration, convert to PO if able) Yes, addressed in today's progress note Steroid (indication, duration, convert to PO if able) Yes, addressed in today's progress note Anticipated [place] Medications (ICU initiated) or Dose Changes and Indication No Permanently Discontinued Home Medications and Reason for medication contraindication No Conrad Catheter (please remove if able. Note: place DC order) No Central Line (please remove if able. Note: place DC order) No Transfer Discussed with: Dr. Trent - [facility] If additional questions for ICU team within 24 hours of ICU transfer, page [phone] for clarifications. Pt transfered out of ICU Care Managment Initial Assessment Date: 01/31/2023 Patient Name: El Smith : 1980 Patient Information Source of Information: Patient Spring Tacker Name/Contact Information: Charis Novak via telephone Cognition/Language: Unable to Assess Permission given to speak with patient pharmaceutical representative/caregiver as indicated: Yes Confirmation of Payer with patient/family: Yes Payer Name: [facility] [place]: No Confirmation of Primary Care Physician: Confirmed PCP Name: Dr Kay Kerr Seen in last 2 years?: Yes Primary Caregiver: Self If assistance needed, confirmed caregiver ready, willing and able to care for patient at discharge: Yes Confirmed with: Chhaya and sister Louise are able to assist at DC Living Arrangements Current Residence: House Number of Floors 3 Number of Entry Steps: 1 Bed/Bath Levels: Both first floor Facility: Facility Name: Plan to Return: Lives with: Parent Support Systems: Parent, Family members, Friends/neighbors Activities of Daily Living Ambulation: Independent Bathing/Dressing: Independent Elimination/Continence/Toileting: Independent Feeding: Independent Who Assists with Activities of Daily Living: Instrumental Activities of Daily Living Prescription Coverage: Yes Pharmacy Used: [facility] in [place] Medication Management: Independent Transportation/Shopping: Independent Transportation Mode: Car Needs Assistance with Transportation at Discharge: No (Chhaya is able to transport home) Meal Preparation: Assistance Provider Meal Prep Assistance Provider Name: Chhaya Laundry/Cleaning: Assistance Provider Laundry/Cleaning Assistance Provider Name: Chhaya Finances/Bill Paying: Assistance Provider Finances/Bill Payer Assistance Provider Name: Chhaya Communication: Independent Types of Care Services/Equipment Utilized Care Services: Dialysis Type: Durable Medical Equipment: DME Provider: No DME Patient's Goal/Discharge Plan Patient expects to be discharged to: TBD based on status and mentality Discharge Planning Actions: Continue to follow Patient's Choice Rights and [employer] and Collaborative Relationships Disclosed as Indicated for Post-Acute Care: Interdisciplinary Team Engagement: PT/OT Social Work Referral for: Additional Information: IA completed with mother over the phone. Introduced self and role. Patient is admitted to ICU for vape pen induced respiratory failure and AMS. Was green slipped through the night for agitation, sitter was discontinued this AM Patient lives with Chhaya, she is able to transport patient home. Sees Dr Kay Kerr (PCP) routinely. Has insurance and prescription coverage, uses [facility] in [place]. Chhaya denies any financial difficulties. DCP TBD based on mental and health status. TCC will continue to monitor. Patient verbalizes understanding and is in agreement with POC. Sandee Moreland RN Pt intermittently agitated. Currently redirectable. Unable to complete full cardiac eval due to patients mental status fluctuation. Abruptly rushes to the restroom, removes leads , iv's , oxygen. Intermittently removing HHF o2. Pt without capacity to understand risk benefit. On phenobarb and ciwa. Pt cannot leave AMA. Does not have decision making capacity at this time. Pt is at elevated risk of intubation / respiratory failure in setting of severe pneumonia, high o2 requirements on HHF, hyperactive delirium, withdrawal, non compliance with therapy. documented in this encounter [facility] 02-03-2023 Note Formatting of this n ote might be different from the original. S/W, follow up Patient left AMA prior to S/W visit. [facility] 02-03-2023 History of Present illness Narrative Pt stating wanting to leave AMA. Dr. Diana Villar made aware and asked if he needed and scripts/ Dr. Diana Villar, stated no. Pt declined wheelchair. Pt left the unit at 1358. Nutrition Assessment Type and Reason for Visit: Reassess (follow up -awake ,alert) Nutrition Recommendations/Plan: Suggest to continue Adult diet Regular to promote intake- intake much improved in last few days. Will continue chocolate Ensure plus high protein bid( 350 heena, 20 gm pro/serving) Please document PO intakes -diet and ONS-consistently in the flowsheet to better assess intake adequacy. Suggest mvi Monitor labs, status, intakes,wts to reassess. Follow up at least weekly Malnutrition Assessment: Malnutrition Status: At risk for malnutrition (Comment) (etoh w/d) Context: Acute Illness Findings of the 6 clinical characteristics of malnutrition: Energy Intake: Unable to assess (requires high sedation- 3 days known decreased) Weight Loss: Unable to assess (multiple variable wts) Body Fat Loss: Unable to assess Muscle Mass Loss: Unable to assess Fluid Accumulation: No significant fluid accumulation (le has pulmonary edema) Locksmith Strength: Measurable reduction in microbiology supervisor strength (per rn) Nutrition Assessment: PER MD--year-old male, with history of alcohol, tobacco, medical marijuana use with a vape pen, history of COPD, chronic pain on methadone history of coronary artery disease status post PCI in 2021, history of hypertension hyperlipidemia admitted via [facility] emergency room where he presented with nonproductive cough leading to emesis symptoms have been present for 3 to 4 days prior to presentation emergency room evaluation included a CT angiogram of the chest, interpreted by me did not reveal any major vessel pulmonary embolism but showed extensive bilateral groundglass changes and mild mediastinal adenopathy as patient was significantly hypoxemic he was admitted to the ICU. Now being transferred out of the ICU. Pneumonia PCR is positive for Moraxella catarrhalis. ICU course was complicated with severe withdrawal patient was on Precedex infusion patient is now on 5 L supplemental oxygen.Assessment and Plan Acute respiratory failure with hypoxia, wean supplemental oxygen ? Vaping associated acute lung injury, patient on a prednisone, will need a repeat short-term CT scan of the chest to monitor for resolution Moraxella pneumonia, patient switched to oral antibiotic COPD-bronchodilators Severe alcohol withdrawal, patient needed Precedex infusion, patient now on phenobarb History of coronary artery disease status post PCI Chronic pain patient on methadone.Wants to go home, feels better as ethanol withdrawal effects addiction medicine and pulmonology following Interval History: No overnight issues. Breathing improved since admission, has mild cough and weakness Estimated Daily Nutrient Needs: Energy Requirements Based On: Kcal/kg Weight Used for Energy Requirements: Usual Weight for Energy Calculation (kg): 90.7 kg Total Energy Requirements (kcals/day): 20-25 or 1814 to 2268 Weight Used for Protein Requirements: [place] Weight in Kg Used for Protein Requirements: 75 kg Estimated Total Protein (g/day): 1.2-2 or 90-150 Estimated Daily Total Fluid (ml/day): or per md Nutrition Related Findings: states drinks Ensure. na 132, bun 25, ca 8.3, alb 3.3, wbc 14.9, mika 20, on b1 Wound Type: None Current Nutrition Therapies: Adult diet Regular Current Oral Intake Average Meal Intake: 51-75%, 76-100% (last 2 days only-prior no po) Average Supplements Intake: 76-100%, Unable to assess (per pt) Anthropometric Measures: Height: 177.8 cm (5' 10) Current Body Weight: 95.3 kg (210 lb 1.6 oz) Weight Source: Stated Usual Body Weight: 90.7 kg (200 lb) (many wt variances) % Weight Change (Calculated): 5 [place] Body Weight (lbs) (Calculated): 166 lbs [place] Body Weight (Kg) (Calculated): 75 kg % [place] Body Weight (Calculated): 126.6 % BMI (kg/m2) (Calculated): 30.1 BMI Categories: Obese Class 1 (BMI 30.0-34.9) (28.7 ubw) Nutrition Diagnosis: Predicted inadequate energy intake related to cognitive or neurological impairment, psychological cause or life stress, impaired nutrient utilization, other (comment) (etoh w/d during admission) as evidenced by intake 0-25%, poor intake prior to admission, intake 51-75% Nutrition Interventions: Nutrition Education/Counseling: No recommendation at this time Coordination of Nutrition Care: Continue to monitor while inpatient (possible d/c) Plan of Care discussed with: patient, mother Goals: Previous Goal Met: Progressing toward Goal(s) Goals: PO intake 50% or greater Specify Other Goals: meet >50% OF needs with diet and oNS Nutrition Monitoring and Evaluation: Behavioral-Environmental Outcomes: Readiness for Change Food/Nutrient Intake Outcomes: Food and Nutrient Intake, Supplement Intake Physical Signs/Symptoms Outcomes: Biochemical Data, Chewing or Swallowing, GI Status, Fluid Status or Edema, Hemodynamic Status, Meal Time Behavior, Nutrition Focused Physical Findings, Skin, Weight Discharge Planning: Continue current diet, Continue Oral Nutrition Supplement Kathy Tim RD Contact: *[phone] or secure chat Images from the original note were not included. [id number]] Respiratory Therapy Home O2 Progress Note O2 saturation at rest on room air: 93% (If resting saturation was 88% or less, enter NA for the next two values) O2 saturation with exertion on room air: 97% (NA if not evaluated) O2 saturation on O2 at 0 LPM with exertion: 0% (NA if not Patient meets criteria for home O2 Y/N = N Patient mobile at home Y/N = Y DME Notified YES 69 Images from the original note were not included. Hospitalist Progress Note 02/03/2023 [phone]: Please secure chat me for patient care issues. [phone]: Please secure chat [facility] Hospitalist for any issues. Subjective: Admit Date: 01/29/2023 PCP: KAY KERR Room#: 232-10/232-10 A Chief Complaint : Patient admitted for 2-day history of cough congestion and weakness history of emphysema and daily smoker also has marijuana abuse with vaping Does not wear oxygen at home Wants to go home, feels better as ethanol withdrawal effects addiction medicine and pulmonology following Interval History: No overnight issues. Breathing improved since admission, has mild cough and weakness denies chest pain, abdominal pain, nausea, vomiting, diarrhea, constipation, fevers, or chills. 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 Drug abuse ([facility]/H[facility]) ([facility]) Gastroenteritis 11/23/2018 Last Assessment & Plan: Predominantly vomiting; ?food poisoning vs viral gastroenteritis IV hydration PRN antiemetics Hyperlipidemia Hypertension Iritis of left eye 09/20/2018 VA (myocardial infarction) ([facility]) Opioid dependence, uncomplicated ([facility]) 10/27/2021 Presence of stent in right coronary artery 10/02/2021 Sciatica Spinal stenosis, lumbar Tobacco abuse LABS: CBC: Recent Labs 02/01/23 0512 02/02/23 0425 02/03/23 0515 WBC 13.9* 11.4* 14.9* RBC 4.66 4.73 5.12 HGB 12.5* 12.6* 13.7 HCT 38.7* 39.7* 42.5 MCV 83.1 84.0 83.1 RDW 18.9* 19.1* 19.4* PLT 367 367 479* BMP: Recent Labs 02/01/2351102/02/2342402/03/2315 NA 134* 130* 132* K 4.0 4.6 4.1 CL 100 101 100 CO2 30 27 30 BUN 23* 21* 25* CREATININE 0.47* 0.52* 0.64* GLUCOSE 142* 121* 98 CALCIUM 8.3* 8.1* 8.3* ANIONGAP 4 3 2* LIVER PROFILE: Recent Labs 02/01/2351102/02/235 02/03/23 0515 AST 26 31 49* ALT 15 15 15 BILITOT 0.2 0.3 0.5 ALKPHOS 120 110 94 PROT 6.5 6.3 6.5 PT/INR: No results for input(s): PROTIME, INR in the last 72 hours. CARDIAC ENZYMES: No results for input(s): TROPONINI in the last 72 hours. Procalcitonin: Lab Results Component Value Date PROCAL 1.16 (H) 02/01/2023 COVID-19 PCR: No results for input(s): COVID19 in the last 72 hours. Objective: Vitals: BP (!) 121/90 (BP Location: Left arm, Patient Position: Sitting) Pulse (!) 115 Temp 36.6 C (97.8 F) (Temporal) Resp 20 Ht 5' 10 (1.778 m) Wt 211 lb 13.8 oz (96.1 kg) SpO2 93% BMI 30.40 kg/m Pulse Ox: SpO2 Av.4 % Min: 90 % Max: 100 % Physical Exam Constitutional: Appearance: He is ill-appearing. Comments: Sitting on the edge of the bed Cardiovascular: Rate and Rhythm: Normal rate and regular rhythm. Heart sounds: Normal heart sounds, S1 normal and S2 normal. Pulmonary: Effort: Tachypnea present. Breath sounds: Decreased air movement (throught both lungs) present. Abdominal: General: Bowel sounds are normal. Palpations: Abdomen is soft. Tenderness: There is no abdominal tenderness. Musculoskeletal: Right lower le+ Pitting Edema present. Left lower le+ Pitting Edema present. Medications: amoxicillin-clavulanate, 875 mg, Oral, 2 times per day aspirin, 81 mg, Oral, Daily enoxaparin, 40 mg, SubCUTAneous, q24h gabapentin, 300 mg, Oral, 3 times per day influenza, 0.5 mL, IntraMUSCular, Prior to discharge ipratropium-albuterol, 3 mL, Nebulization, TID nicotine, 1 patch, TransDERmal, Daily Followed by [START ON 03/13/2023] nicotine, 1 patch, TransDERmal, Daily Followed by [START ON 03/27/2023] nicotine, 1 patch, TransDERmal, Daily pantoprazole, 40 mg, Oral, q AM polyethylene glycol (PEG) 3350, 17 g, Oral, Daily predniSONE, 60 mg, Oral, Daily senna-docusate sodium, 2 tablet, Oral, BID thiamine, 100 mg, Oral, TID Assessment Community-acquired pneumonia due to Moraxella catarrhalis on the background of vaping associated acute lung injury (marijuana) Acute hypoxic respiratory failure due to above and COPD exacerbation Acute COPD exacerbation Severe ethanol abuse with withdrawal effects was on Precedex in the ICU, now on phenobarbital and CIWA protocol Coronary artery disease status post PCI Chronic pain therapy due to methadone Tobacco dependence 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 Drug abuse ([facility]) ([facility]) Gastroenteritis 11/23/2018 Last Assessment & Plan: Predominantly vomiting; ?food poisoning vs viral gastroenteritis IV hydration PRN antiemetics Hyperlipidemia Hypertension Iritis of left eye 09/20/2018 [facility] (myocardial infarction) ([facility]) Opioid dependence, uncomplicated ([facility]) 10/27/2021 Presence of stent in right coronary artery 10/02/2021 Sciatica Spinal stenosis, lumbar Tobacco abuse Medical Decision Making Patient was transferred out of the ICU yesterday and in improved condition, was being treated for community-acquired pneumonia and COPD exacerbation with O2 supplementation, IV Zosyn now switched to p.o. Augmentin, grew Moraxella catarrhalis and pneumonia PCR panel, has severe ethanol withdrawal effects, addiction medicine and pulmonology following Anticipate discharge tomorrow, patient wants to go home today, continue bronchodilators and steroids Needs a short-term follow-up CT scan, recommended to quit smoking -am labs, replace lytes prn -increase activity -DVT prophylaxis: [x] Lovenox [] Heparin [] SCDs [x] Encourage ambulation [] Already on Anticoagulation Anticipated Discharge - Date -February 04 - Location-Home - Pending the following -clinical improvement Total time spent (which include face to face and non face to face encounters) : 36 minutes Toxic drug monitoring/narrow therapeutic index drug monitoring : # Drug name : # Route administered : # Method of monitoring : Extended Emergency Contact Information Primary Emergency Contact: Ruth Maurer Relation: Child Secondary Emergency Contact: Louise Smith Mobile Relation: Sister Preferred language: Indian Toys Inspector needed? No Mother: Chhaya Maurer Mobile DIANA VILLAR MD, MD Division of Hospitalist Medicine [facility] PAGER: Fan[employer] chat Methadone Dose verified with Kelly from [facility] - Last outpatient dose: 125mg oral methadone given on 01/29 with one take-home dose for 01/30. [facility] Respiratory Care Department Progress Note As part of the Respiratory Assessment Program (RAP), the following Respiratory Therapist evaluation has been completed, including a chart review and clinical/physical assessment. Respiratory Therapist RAP Evaluation Guideline Points 0 1 2 3 4 Points Strongly Consider History Factor No Pulmonary conditions Stable Pulmonary condition(s) Surgery or Intervention that may impact Pulmonary system (at risk) Surgery or Intervention that is impacting Pulmonary system Active Exacerbation of Pulmonary Condition 1 Respiratory Pattern Regular, RR= 12-18 AMATO or Increased RR= 19-24 Irregular, or RR= 25-30 SOB, talk in short sentences, or RR= 31-35 Severe SOB, accessory muscle use, one word answers, or RR>35 0 Aerosol Med(s), High Flow O2 Breath Sounds Clear Diminished in 1 lobe Diminished in ? 2 lobes Adventitious breath sounds Coarse crackles, Wheezes, or Diminished in >2 lobes 4 Aerosol Med(s), Bronchial Hygiene, Hyperinflation Cough & Sputum Strong cough, no secretion retention or production Weak cough, no secretion retention or production Weak cough, w/ production (less often than Q2hr), or secretion retention No cough, w/ secretion retention or production (less often than Q2hr) Significant secretion production (more often than Q2hr) or mucus plug 0 Aerosol Med(s), Bronchial Hygiene, Hyperinflation Level of Activity Ambulatory Ambulatory with Assist Up in chair or edge of bed (dangle) Non-ambulatory, bedridden with active ROM Completely paralyzed or without active ROM 0 Triage 5 0-2 Triage 4 3-5 Triage 3 6-10 Triage 2 11-14 Triage 1 ?15 Total 5 Triage Score = 4 TRIAGE SCORING - SUGGESTED FREQUENCIES Aerosol Therapy Bronchial Hygiene Hyperinflation Triage Score Q4h & PRN 1 Q4hWA (QID) & PRN 2 TID & PRN 3 BID & PRN 4 PRN 5 Therapy(s) Indicated Yes/No Aerosol Medication yes Hyperinflation no Bronchial Hygiene no High Flow Oxygen no Flow Rates PEF (L/Sec) IVC FVC FEV1 FEV1/FVC Patient instructed and returned demonstration on use of MDI (with spacer, as appropriate) None RT to enter/modify frequency of treatment order in EMR/EHR to match this RAP evaluation. Based on this RAP evaluation the following therapy is being initiated: SVN At the following frequency: TID Comments: Thank you for involving Respiratory in the care of this patient, Images from the original note were not included. [facility] [place], Pulmonary Medicine [address] [place] [id number] Patient - El Smith, Age - 42 y.o. - 1980 Room Number - 232-10/232-10 A Consulting - Conner Trent MD [phone] Date of Admission - 01/29/2023 6:32 PM Hospital Day - 5 Chief Complaint El Smith is a 42 y.o. male who pulmonary is following for pneumonia respiratory failure Interval History 42-year-old male, with history of alcohol, tobacco, medical marijuana use with a vape pen, history of COPD, chronic pain on methadone history of coronary artery disease status post PCI in 2021, history of hypertension hyperlipidemia admitted via [facility] emergency room where he presented with nonproductive cough leading to emesis symptoms have been present for 3 to 4 days prior to presentation emergency room evaluation included a CT angiogram of the chest, interpreted by me did not reveal any major vessel pulmonary embolism but showed extensive bilateral groundglass changes and mild mediastinal adenopathy as patient was significantly hypoxemic he was admitted to the ICU. Now being transferred out of the ICU. Pneumonia PCR is positive for Moraxella catarrhalis. ICU course was complicated with severe withdrawal patient was on Precedex infusion patient is now on 5 L supplemental oxygen All other systems reviewed Objective Vitals: BP 119/77 (BP Location: Left arm, Patient Position: Lying) Pulse 103 Temp 36.6 C (97.9 F) (Oral) Resp 18 Ht 5' 10 (1.778 m) Wt 211 lb 13.8 oz (96.1 kg) SpO2 92% BMI 30.40 kg/m Pulse Ox: SpO2 Av.8 % Min: 89 % Max: 100 % Supplemental O2: O2 Flow Rate (L/min): 5 L/min I/O 24HR INTAKE/OUTPUT: Intake/Output Summary (Last 24 hours) at 02/03/2023 0717 Last data filed at 02/02/2023 1934 Gross per 24 hour Intake 1020 ml Output 1750 ml Net -730 ml Exam General appearance: Awake, alert, no acute distress. On 5 liters NC. HEENT: Normocephalic, atraumatic. No scleral icterus, no right/left eye discharge. Conjunctivae normal. Pupils equal round and reactive to light. Right external ear normal, Left external ear normal. No congestion. Mouth: mucous membranes moist. Pharynx, Oropharynx is clear. No oropharyngeal exudate. Neck: ROM normal, No thyromegaly. No cervical lymphadenopathy Cardiovascular: Regular rate and rhythm. Heart sounds normal. Negative for murmur, friction rub or gallop. Pulmonary: Effort normal, no respiratory distress. No stridor RALES IN BASES Abdomen: Soft, no distention, no abdominal tenderness. No guarding. No masses. Musculoskeletal: ROM normal, Negative for swelling, tenderness or deformity. Skin: Warm and dry. Skin is not jaundiced. No rash Extremities: No clubbing, cyanosis, or extremity edema Neurological: No focal deficits. Alert and oriented x person, place and time. Mental status is at baseline. No motor weakness. Medications Current Medications amoxicillin-clavulanate, 875 mg, Oral, 2 times per day aspirin, 81 mg, Oral, Daily enoxaparin, 40 mg, SubCUTAneous, q24h gabapentin, 300 mg, Oral, 3 times per day influenza, 0.5 mL, IntraMUSCular, Prior to discharge ipratropium-albuterol, 3 mL, Nebulization, q4h nicotine, 1 patch, TransDERmal, Daily Followed by [START ON 03/13/2023] nicotine, 1 patch, TransDERmal, Daily Followed by [START ON 03/27/2023] nicotine, 1 patch, TransDERmal, Daily pantoprazole, 40 mg, Oral, q AM polyethylene glycol (PEG) 3350, 17 g, Oral, Daily predniSONE, 60 mg, Oral, Daily senna-docusate sodium, 2 tablet, Oral, BID thiamine, 100 mg, Oral, TID PRN Mediations PRN medications: labetalol OR labetalol, LORazepam, LORazepam OR LORazepam OR LORazepam OR LORazepam OR LORazepam OR LORazepam OR LORazepam OR LORazepam, melatonin, ondansetron ODT OR ondansetron, oxyCODONE-acetaminophen, PHENobarbital IV Drips/Infusions Labs CBC Results from last 7 days Lab Units 02/03/2315 WBC AUTO 10*3/uL 14.9* HEMOGLOBIN g/dL 13.7 HEMATOCRIT % 42.5 PLATELETS AUTO 10*3/uL 479* BMP: Results from last 7 days Lab Units 02/03/2315 02/02/235 02/01/2312 SODIUM mmol/L 132* 130* 134* POTASSIUM mmol/L 4.1 4.6 4.0 CHLORIDE mmol/L 100 101 100 CO2 mmol/L 30 27 30 BUN mg/dL 25* 21* 23* CREATININE mg/dL 0.64* 0.52* 0.47* GLUCOSE mg/dL 98 121* 142* CALCIUM mg/dL 8.3* 8.1* 8.3* ABG: Results from last 7 days Lab Units 01/31/23 0959 01/29/23 2245 01/29/23 1846 POCT PH, ARTERIAL pH 7.450 7.414 -- POCT PCO2, ARTERIAL mm Hg 40.8 42.5 -- POCT PO2, ARTERIAL mm Hg 71.5* 61.0* -- POCT HCO3, ARTERIAL mmol/L 28.4* 27.2* -- POCT BASE EXCESS, ARTERIAL mmol/L 4.0* 2.2 -- SOURCE OF OXYGEN -- -- 2L LIVER PROFILE Results from last 7 days Lab Units 02/03/23 0515 02/02/23 0425 02/01/23 0512 ALK PHOS U/L 94 110 120 BILIRUBIN TOTAL mg/dL 0.5 0.3 0.2 PROTEIN TOTAL g/dL 6.5 6.3 6.5 ALT U/L 15 15 15 AST U/L 49* 31 26 INR PTT No results found for: PTT Cultures Radiology CT angiogram of the chest as dictated above Active Hospital Problem List Patient Active Problem List Diagnosis Alcohol use Nondependent cannabis abuse Generalized anxiety disorder PUD (peptic ulcer disease) Nicotine dependence Degenerative disc disease, lumbar Spinal stenosis, lumbar Current moderate episode of major depressive disorder without prior episode (HCC) Acute myocardial infarction (HCC) Coronary artery disease involving [place] coronary artery of [place] heart without angina pectoris Mood disorder (HCC) Coagulase negative Staphylococcus bacteremia Presence of stent in right coronary artery PTSD (post-traumatic stress disorder) Primary hypertension Leukocytosis Withdrawn from alcohol detoxification program COPD exacerbation (HCC) Alcohol withdrawal delirium, acute, hyperactive ([facility]) Community acquired bacterial pneumonia Acute hypoxic respiratory failure ([facility]) Lumbar dysfunction Closed fracture of metatarsal bone Cyst of right kidney Dilated bile duct Discogenic syndrome, lumbar Displacement of lumbar intervertebral disc without myelopathy Distal radius fracture Gastroenteritis Generalized abdominal pain Left upper quadrant pain Sciatica Thrombocytosis Severe opioid use disorder on maintenance therapy (HCC) Severe alcohol use disorder (HCC) Assessment and Plan Acute respiratory failure with hypoxia, wean supplemental oxygen ? Vaping associated acute lung injury, patient on a prednisone, will need a repeat short-term CT scan of the chest to monitor for resolution Moraxella pneumonia, patient switched to oral antibiotic COPD-bronchodilators Severe alcohol withdrawal, patient needed Precedex infusion, patient now on phenobarb History of coronary artery disease status post PCI Chronic pain patient on methadone Patient discussed with IMS physician Advance Directive: Full Code Discharge planning: TBD Case discussed with nurse and patient Questions and concerns addressed. Images from the original note were not included. PHYSICAL THERAPY [facility] Initial Evaluation Name/MRN: El Smith ([id number]) Evaluation Date: 02/02/2023 Date of : 1980 Admission Date: 01/29/2023 6:32 PM Age: 42 y.o. Room/Bed: 222-06/222-06 A Discharge Recommendation: Home with Home PT and Home with Assist PRN Equipment Needed: none Assessment IMPRESSION: Pt admitted 01/29 with SOB, pneumonia, encephalopathy. At baseline is IND with no device. He demo bed mobility SBA, transfers to no device CGA and ambulate with no device CGA-min A. He demo unsteadiness but no true LOB. He is at increased falls risk, demo some decreased safety awareness. Pt would likely benefit from skilled therapy to promote mobility and safety, Critical access hospital PT Diagnosis: pneumonia; encephalopathy Prognosis: good Performance Deficits /Impairments: Decreased Functional Mobility, Decreased Strength, Decreased Safety Awareness, Decreased Endurance, and Decreased Balance Decision Making: Medium Complexity Subjective Per RN pt okay for therapy, pt pleasant and agree to PT Pain: RN managing pain. LBP did not rate 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 Drug abuse (CMS/HCC) ([facility]) Gastroenteritis 11/23/2018 Last Assessment & Plan: Predominantly vomiting; ?food poisoning vs viral gastroenteritis IV hydration PRN antiemetics Hyperlipidemia Hypertension Iritis of left eye 09/20/2018 [facility] (myocardial infarction) ([facility]) Opioid dependence, uncomplicated ([facility]) 10/27/2021 Presence of stent in right coronary artery 10/02/2021 Sciatica Spinal stenosis, lumbar Tobacco abuse Past Surgical History: Past Surgical History: Procedure Laterality Date ARM SURGERY (HISTORICAL) metal rods in adam upper extremities BACK SURGERY COLONOSCOPY CORONARY ANGIOPLASTY WITH STENT PLACEMENT 09/23/2021 DORIS to proximal RCA FRACTURE SURGERY Admission Diagnosis: Patient Active Problem List Diagnosis Date Noted Acute myocardial infarction ([facility]) 09/26/2021 Severe opioid use disorder on maintenance therapy ([facility]) 02/01/2023 Severe alcohol use disorder ([facility]) 02/01/2023 Acute hypoxic respiratory failure ([facility]) 01/29/2023 Closed fracture of metatarsal bone 09/24/2022 Community acquired bacterial pneumonia 09/18/2022 Alcohol withdrawal delirium, acute, hyperactive ([facility]) 09/17/2022 COPD exacerbation ([facility]) 09/16/2022 Withdrawn from alcohol detoxification program 08/26/2022 Coronary artery disease involving [place] coronary artery of [place] heart without angina pectoris 10/02/2021 Presence of stent in right coronary artery 10/02/2021 Primary hypertension 10/02/2021 Mood disorder ([facility]) 09/27/2021 Coagulase negative Staphylococcus bacteremia 09/26/2021 PTSD (post-traumatic stress disorder) 09/26/2021 Leukocytosis 09/26/2021 Generalized abdominal pain 01/16/2020 Thrombocytosis 01/16/2020 Cyst of right kidney 11/23/2018 Dilated bile duct 11/23/2018 Gastroenteritis 11/23/2018 Left upper quadrant pain 11/23/2018 Distal radius fracture 04/20/2013 Discogenic syndrome, 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 Lumbar dysfunction 08/13/2009 Displacement of lumbar intervertebral disc without myelopathy 08/13/2009 Sciatica 08/13/2009 Alcohol use 06/06/2020 Nondependent cannabis abuse 06/06/2020 Generalized anxiety disorder 06/06/2020 PUD (peptic ulcer disease) 06/06/2020 Nicotine dependence 06/06/2020 Degenerative disc disease, lumbar 02/01/2018 Spinal stenosis, lumbar 02/01/2018 Current moderate episode of major depressive disorder without prior episode ([facility]) 11/23/2017 Medical Precautions: No active isolations Proper PPE donned/doffed in accordance with facility standards. Fall Risk: [place]otti Fall Risk Score: 60 (High Risk) Precautions/Restrictions: N/A Family/Caregiver Present: none Overall Cognitive Status: Exceptions - Safety judgement: decreased awareness of need for assistance and decreased awareness of need for safety - Problem solving: assistance required to generate solutions, assistance required to implement solutions, assistance required to identify errors made, assistance required to correct errors made, and decreased awareness of errors - Insights: decreased awareness of deficits Overall Orientation Status: Oriented x4 Vision: no visual deficits Hearing: normal Social/Functional History Patient admitted from home. Lives With: Parent Type of Home: duplex home Home Layout: Multi-Level Home, ADLs on Main Level, and Able to Live on Main Level Home Access: Stairs to Enter with Rails (# of stairs: 2+1) Bathroom Shower/Tub: Tub/Shower Combo and Shower Chair with Back Toilet: Standard Home Equipment: cane Homemaking Responsibilities: Independent Receives Help From: Family Active Parts Inspector: Yes Prior Level of Function ADL Assistance: Independent Ambulation Assistance: Independent Transfer Assistance: Independent Objective Lower Extremity Assessment AROM: WFL PROM: Not assessed this session Strength: WFL Bed Mobility: Supine to sit: SBAPt demo bed mobility SBA with HOB elevated. He is in recliner post session Transfers Sit to stand: Contact Guard, Pt complete functional transfer to no device CGA. He demo no LOB, some decreased safety awareness requiring cues for safety Stand to sit: Contact Guard Ambulation Ambulation 1 Assistive device(s) used: none Assist level: Contact Guard, Min Assist, Pt ambulate with no device CGA-min A with increased lateral sway and unsteadiness throughout. No overt LOB. HR 120-130s; SpO2 88-93% Distance (ft): ~150 ft Quality of gait: No LOB, wide LUCIA, slow [place], postural sway, path deviations, instability through all phases Outcome Measures AM-PAC How much HELP from another person do you currently need Turning from your back to your side while in a flat bed without using bedrails?: None Moving from lying on your back to sitting on the side of a flat bed without using bedrails?: A Little Moving to and from a bed to a chair (including a wheelchair)?: A Little Standing up from a chair using your arms (wheelchair or bedside chair)?: A Little Walking in a hospital room?: A Little Stair climbing assessed?: No AM-PAC Inpatient Mobility Raw Score (No Stairs) : 16 Plan Pt would benefit from skilled acute PT services to address Strengthening, Balance Training, Functional Mobility Training, Endurance Training, Gait Training, Stair Training, Pain Management, Safety Education and Training, Patient/Caregiver Training, Equipment Evaluation/Education, and Positioning. Frequency: 5 visits during current hospital admission or until additional recommendations are made Barriers: None Safety/Education Safety Safety Devices in place: All fall risk precautions in place, call light within reach, left in chair, chair alarm in place, gait belt, patient at risk for falls, and nurse notified Restraints: No Education Education Given To: patient Education Provided: PT Role, PT Goals, Gait Training, Plan of Care, Transfer Training, Energy Conservation, Equipment, Fall Prevention Education, Discharge Recommendations, and Benefits of Increasing Activity Education Method: Verbal and Demonstration Barriers to Learning: None Education Outcome: Verbalized Understanding, Demonstrated Understanding, and Continued Education Needed Goals Patient Stated Goal: to go home Encounter Problems Encounter Problems (Active) Exercise Patient will complete lower extremity exercises for 1-2 sets / 5-10 reps in order to improve strength and activity tolerance for mobility. Start: 02/02/23 Expected End: 02/09/23 Mobility Patient will ambulate 100 feet with modified independence and least restrictive device in order to improve safety and independence with mobility. Start: 02/02/23 Expected End: 02/09/23 Patient will ascend and descend 3 stairs with least restrictive device and supervision in order to safely negotiate home. Start: 02/02/23 Expected End: 02/09/23 Transfers Patient will perform bed mobility with modified independence in order to improve independence and prepare for out of bed mobility. Start: 02/02/23 Expected End: 02/09/23 Patient will complete sit to stand transfer with modified independence to LRAD/ND in order to improve safety and prepare for out of bed mobility. Start: 02/02/23 Expected End: 02/09/23 Therapy Time Individual Co-treatment Time In 1306 (co-eval with OT) Time Out 1321 Minutes 15 Vinod Gonzalez PT Patient's Physical Therapy Plan of Care supervision is transferred to a [facility] Physical Therapist. Goals and/or treatment plan was established in collaboration with patient/family/other representatives. Images from the original note were not included. ADDICTION MEDICINE PROGRESS NOTE Patient: El Smith Problem List: Principal Problem: Acute hypoxic respiratory failure (HCC) Active Problems: Alcohol withdrawal delirium, acute, hyperactive (HCC) Severe opioid use disorder on maintenance therapy (HCC) Severe alcohol use disorder (HCC) SUBJECTIVE Chief Complaint Patient presents with Shortness of Breath Cough Shortness of breath, non-productive cough, congestion, weakness x2 days, history of emphysema, daily smoker 2 packs a day; does not wear oxygen at home o2 saturation 69% on room air in triage Interim History Somewhat more alert but not able to talk about addiction issues or desire to stay sober Received about 400 mg of PNB yesterday for agitation Precedex stopped Remains on NC for O2 Received 62 mg of methadone yesterday (half home dose) and 125 mg today - seems to be tolerating it again without issue Currently Green-Slipped Review of Systems Review of Systems Unable to perform ROS: Mental status change OBJECTIVE Vitals Vitals: 02/02/23 1102 02/02/23 1132 02/02/23 1138 02/02/23 1202 BP: (!) 150/101 (!) 154/115 (!) 148/108 (!) 149/117 BP Location: Right arm Patient Position: Sitting Pulse: 93 104 106 (!) 113 Resp: Temp: 36.7 C (98 F) TempSrc: Oral SpO2: 99% 98% 98% 97% Weight: Height: Physical Exam Vitals and nursing note reviewed. Constitutional: General: He is in acute distress. Appearance: He is ill-appearing. Interventions: Nasal cannula in place. Eyes: Extraocular Movements: Extraocular movements intact. Cardiovascular: Rate and Rhythm: Regular rhythm. Tachycardia present. Pulmonary: Effort: Respiratory distress present. Neurological: Mental Status: He is disoriented. Medications Home Meds Current Outpatient Medications Medication Instructions aspirin 81 mg, Oral, Daily carvedilol (Coreg) 12.5 MG tablet No dose, route, or frequency recorded. LISINOPRIL PO Oral methocarbamol (ROBAXIN) 1,000 mg, Oral, Every 8 hours scheduled Ticagrelor (BRILINTA PO) Oral Scheduled Inpatient Meds amoxicillin-clavulanate, 875 mg, Oral, 2 times per day aspirin, 81 mg, Oral, Daily enoxaparin, 40 mg, SubCUTAneous, q24h gabapentin, 300 mg, Oral, 3 times per day influenza, 0.5 mL, IntraMUSCular, Prior to discharge ipratropium-albuterol, 3 mL, Nebulization, q4h nicotine, 1 patch, TransDERmal, Daily Followed by [START ON 03/13/2023] nicotine, 1 patch, TransDERmal, Daily Followed by [START ON 03/27/2023] nicotine, 1 patch, TransDERmal, Daily pantoprazole, 40 mg, Oral, q AM polyethylene glycol (PEG) 3350, 17 g, Oral, Daily predniSONE, 60 mg, Oral, Daily senna-docusate sodium, 2 tablet, Oral, BID thiamine, 100 mg, Oral, TID PRN Inpatient Meds PRN medications: labetalol OR labetalol, LORazepam, LORazepam OR LORazepam OR LORazepam OR LORazepam OR LORazepam OR LORazepam OR LORazepam OR LORazepam, ondansetron ODT OR ondansetron, oxyCODONE-acetaminophen, PHENobarbital Continuous Inpatient Infusions None Recent Imaging Transthoracic echocardiogram (TTE) complete with contrast, bubble, strain, and 3D PRN Result Date: 01/30/2023 Limited echo due to patient non-cooperation. Findings below via limited images. No severe abnormalities noted on this study. Left Ventricle: Left ventricle size is normal. Mildly increased wall thickness. Normal left ventricular systolic function. The EF by visual approximation is 60%. Normal wall motion. Right Ventricle: Not well visualized. Right ventricle size is normal. Normal systolic function visually. XR chest 1 view Result Date: 01/30/2023 Patient Name: EL SMITH : 1980 Exam Date/Time: 01/30/2023 05:16 Procedure: XR CHEST 1 VIEW Ordering Provider: OLIVAREZ ALEXANDER Reason For Exam: respiratory failure Clinical History: respiratory failure Comparison: 01/29/2023 Technique: Single AP radiograph of the chest. Findings: Borderline cardiomegaly. Pulmonary vasculature is mildly indistinct. Patchy consolidation in the lung bases has increased from prior study. No pneumothorax . No displaced rib fractures. Worsening bibasilar consolidation. Report Dictated on Electronically Signed By: Estefani Jarquin DR Electronically Signed Date/Time: 01/30/2023 5:[address] chest angiogram w and/or wo IV contrast Result Date: 01/29/2023 Patient Name: EL SMITH : 1980 Exam Date/Time: 01/29/2023 20:35 Procedure: CT CHEST ANGIOGRAM W AND/OR WO IV CONTRAST Ordering Provider: QUISPE ANIS Reason For Exam: Pulmonary embolism (PE) suspected, high prob CTA CHEST WITH CONTRAST CLINICAL INDICATION: Chest pain and shortness of breath TECHNIQUE: Axial CT images through the were obtained from the lung apices through the upper abdomen after a bolus tracked intravenous contrast injection over the pulmonary arteries. 75 cc of Isovue 370 contrast was given intravenously. Three-dimensional and surface-shaded reconstructions were performed by myself on a separate workstation at the time of dictation. Dose reduction was employed with automated exposure control. COMPARISON: Chest radiographs earlier the same day. CT abdomen pelvis 04/13/2021. FINDINGS: Limitations: Somewhat limited by motion artifact and suboptimal opacification of the pulmonary arteries. Heart/mediastinum: Heart size is within normal limits. Thoracic aorta and pulmonary trunk are normal in caliber. No filling defects within the pulmonary trunk, pulmonary arteries, and proximal segmental branches. More distal branches are suboptimally evaluated. Scant atherosclerotic calcifications with involvement of the coronary arteries. Multiple prominent and mildly enlarged mediastinal and perihilar lymph nodes. Lungs/pleura: Fairly extensive diffuse groundglass opacities in a basilar subpleural distribution. Borderline bronchiectasis. No pleural effusions or pneumothorax. Central tracheobronchial tree appears patent. Visualized upper abdomen: Punctate hypodensities the liver too small to definitively characterize but present on prior study to some extent. No discrete adrenal mass or nodule. Visualized spleen appears homogeneous. Osseous structures/soft tissues: Mild degenerative spondylosis in the visualized spine with Schmorl's nodes deformities. Slight age indeterminant compression fracture deformity at the approximate T4 level. Suspected fracture deformity involving the manubrium of the sternum. No suspicious axillary adenopathy. 1. Somewhat limited evaluation. No large central pulmonary embolism detected. Peripheral branches not well evaluated. 2. Fairly extensive diffuse groundglass opacities in a basilar subpleural distribution. Findings could be seen in the setting of viral pneumonia such as Covid 19. Pulmonary edema/interstitial edema and other inflammatory etiologies could also be considered. No significant pleural effusions. 3. Mild mediastinal/perihilar adenopathy likely reactive. Report Dictated on Electronically Signed By: Mark Finnegan MD Electronically Signed Date/Time: 01/29/2023 8:39 PM EDT XR chest 1 view Result Date: 01/29/2023 Patient Name: EL SMITH : 1980 Exam Date/Time: 01/29/2023 18:57 Procedure: XR CHEST 1 VIEW Ordering Provider: COLLADO SCOTT Reason For Exam: DYSPNEA INDICATION: 42-year-old. Shortness of breath. VIEWS: Chest portable upright-2 images COMPARISON: 09/18/2022 FINDINGS: The trachea is midline. The cardiac silhouette is mildly enlarged. The lung volumes are low. There is coarsening of interstitium. Bilateral lower lung patchy opacities are present. Cardiac monitoring wires and leads are present. Pulmonary vascular congestion and/or infiltrates. Report Dictated on Electronically Signed By: Chela Cleaning MD Electronically Signed Date/Time: 01/29/2023 7:01 PM EDT Labs CBC: Recent Labs 01/31/23 0319 02/01/23 0512 02/02/23 0425 WBC 11.5* 13.9* 11.4* HGB 12.5* 12.5* 12.6* PLT 349 367 367 MCV 84.0 83.1 84.0 RDW 19.5* 18.9* 19.1* BMP: Recent Labs 01/31/2331802/01/23 0512 02/02/23 0425 NA 134* 134* 130* K 3.9 4.0 4.6 CL 99 100 101 CO2 33* 30 27 BUN 27* 23* 21* CREATININE 0.49* 0.47* 0.52* CALCIUM 8.2* 8.3* 8.1* MG 2.7* 2.3 2.1 PHOS 2.9 3.2 3.6 Liver Profile: Recent Labs 01/31/2331802/01/2351102/02/23 042 AST 23 26 31 ALT 15 15 15 BILITOT 0.3 0.2 0.3 ALKPHOS 124 120 110 PROT 6.3 6.5 6.3 Glucose: Recent Labs 01/31/2331802/01/2351102/02/23 0425 GLUCOSE 164* 142* 121* Lactic Acid: No lab exists for component: LACTA Cardiac Injury Profile: No results for input(s): CKTOTAL, CKMB, TROPONINI in the last 72 hours. Last 24 Hours: Recent Results (from the past 24 hour(s)) ECG 12 lead Collection Time: 02/01/23 3:44 PM Result Value Ref Range Heart Rate 87 bpm QRSD Interval 112 ms QT Interval 404 ms QTC Interval 486 ms P [place] 34 degrees QRS [place] 15 degrees T Wave [place] 20 degrees MI Interval 160 ms CBC auto differential Collection Time: 02/02/23 4:25 AM Result Value Ref Range Auto WBC 11.4 (H) 3.6 - 10.7 10*3/uL RBC 4.73 4.40 - 5.90 10*6/uL Hemoglobin 12.6 (L) 13.0 - 18.0 g/dL Hematocrit 39.7 (L) 40.0 - 52.0 % MCV 84.0 80.0 - 98.0 fL MCH 26.7 26.0 - 34.0 pg MCHC 31.8 (L) 32.0 - 36.0 % RDW 19.1 (H) 11.5 - 14.5 % Platelets 367 140 - 440 10*3/uL MPV 7.1 (L) 7.4 - 12.4 fL nRBC 0.0 0.0 - 2.0 /100 WBCs Neutrophils Relative 85.3 (H) 40.0 - 80.0 % Lymphocytes Relative 7.7 (L) 20.0 - 40.0 % Monocytes Relative 6.5 2.0 - 10.0 % Eosinophils Relative 0.2 (L) 1.0 - 6.0 % Basophils Relative 0.3 0.0 - 2.0 % Neutrophils Absolute 9.7 (H) 1.8 - 7.0 10*3/uL Lymphocytes Absolute 0.9 (L) 1.0 - 4.3 10*3/uL Monocytes Absolute 0.7 0.0 - 0.8 10*3/uL Eosinophils Absolute 0.0 0.0 - 0.5 10*3/uL Basophils Absolute 0.0 0.0 - 0.2 10*3/uL Comprehensive metabolic panel Collection Time: 02/02/23 4:25 AM Result Value Ref Range SODIUM 130 (L) 135 - 145 mmol/L POTASSIUM 4.6 3.5 - 5.1 mmol/L CHLORIDE 101 98 - 107 mmol/L CARBON DIOXIDE 27 22 - 30 mmol/L ANION GAP 3 3 - 13 mmol/L UREA NITROGEN 21 (H) 9 - 20 mg/dL CREATININE 0.52 (L) 0.66 - 1.25 mg/dL GLUCOSE 121 (H) 70 - 100 mg/dL CALCIUM 8.1 (L) 8.4 - 10.4 mg/dL AST (SGOT) 31 15 - 46 U/L ALT 15 0 - 49 U/L ALKALINE PHOSPHATASE 110 38 - 126 U/L ALBUMIN 3.1 (L) 3.5 - 5.0 g/dL BILIRUBIN, TOTAL 0.3 0.2 - 1.3 mg/dL TOTAL PROTEIN 6.3 6.3 - 8.2 g/dL eGFR >90.0 >60.0 mL/min/1.73m*2 Magnesium Collection Time: 02/02/23 4:25 AM Result Value Ref Range MAGNESIUM 2.1 1.6 - 2.3 mg/dL Phosphorus Collection Time: 02/02/23 4:25 AM Result Value Ref Range PHOSPHORUS 3.6 2.5 - 4.5 mg/dL ASSESSMENT & PLAN Severe opioid use disorder on methadone MAT Severe alcohol use disorder Cigarette smoker Counseled patient on biopsychosocial consequences of substance use. Encouraged professional chemical dependency treatment. Encouraged 12 step meeting attendance. SW to finalize an addiction treatment plan before discharge: No plans to stop drinking at this time but also remains Green-Slipped He will return to [facility] to continue methadone MAT after discharge. Lacks insight and judgement into the nature of his addiction issues based on past admissions. Alcohol withdrawal Opioid withdrawal Nicotine withdrawal Precedex gtt managed by crit care - now discontinued Phenobarbital was lowered to 100 mg IV q 8 hours PRN ONLY for agitation ~400 mg in the last 24 hours Ativan PRN per [facility] protocol for alcohol withdrawal 125 mg of methadone today (back at his normal dose). Consider EKG to monitor QT interval (history of mildly elevated QT interval in past admissions) Nicotine patch Acute respiratory failure (PNA, CLAU) Mgmt per ICU Chronic Pain Methadone restarted Would avoid other opioids if possible Neurontin restarted - he goes to a daily dosing clinic that doesn't have to report gabapentin use to [facility] He has a deep distrust of medical providers based on past admissions and will likely try to leave AMA as soon as he's able to Disposition: Per critical care Will follow. I reviewed the patient's medical record, and reviewed test results. I educated and then counseled the patient on any substance use disorder or chemical dependency related issues. This included a face to face evaluation and physical examination, and coordinating care on a substance use disorder treatment plan as well as documenting clinical information on the day of visit. Images from the original note were not included. OCCUPATIONAL THERAPY [facility] Initial Evaluation Name/MRN: lE Smith ([id number]) Evaluation Date: 02/02/2023 Date of : 1980 Admission Date: 01/29/2023 6:32 PM Age: 42 y.o. Room/Bed: 222-06/222-06 A Discharge Recommendation: Home with Home OT and Home with Assist PRN Equipment Needed: none Assessment IMPRESSION: Pt admitted to ED on 01/29 with SOB and was found to have acute hypoxic respiratory failure with severe PNA and encephalopathy. Pt required HF but was on 4L at time of eval. Prior to admission, pt lived with his mom and performed ADLs and mobility independently without assistive devices. Upon eval, pt required SBA for bed mobility, CGA for transfers, CGA-min A for mobility, and SBA for ADLs. Pt was slightly limited by his balance deficits in addition to tachycardia and new O2 needs . Recommend HHC and PRN assist upon DC. Performance Deficits /Impairments: Increased Pain, Decreased Functional Mobility, Decreased ADL status, Decreased Strength, Decreased Safety Awareness, Decreased Cognition, Decreased Endurance, Decreased Balance, and Decreased High Level IADLs Prognosis: Good Decision Making: Medium Complexity Subjective Pt cooperative for therapy eval. 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 Drug abuse ([facility]) ([facility]) Gastroenteritis 11/23/2018 Last Assessment & Plan: Predominantly vomiting; ?food poisoning vs viral gastroenteritis IV hydration PRN antiemetics Hyperlipidemia Hypertension Iritis of left eye 09/20/2018 VA (myocardial infarction) ([facility]) Opioid dependence, uncomplicated ([facility]) 10/27/2021 Presence of stent in right coronary artery 10/02/2021 Sciatica Spinal stenosis, lumbar Tobacco abuse Past Surgical History: Past Surgical History: Procedure Laterality Date ARM SURGERY (HISTORICAL) metal rods in adam upper extremities BACK SURGERY COLONOSCOPY CORONARY ANGIOPLASTY WITH STENT PLACEMENT 09/23/2021 DORIS to proximal RCA FRACTURE SURGERY Admission Diagnosis: Patient Active Problem List Diagnosis Date Noted Acute myocardial infarction ([facility]) 09/26/2021 Severe opioid use disorder on maintenance therapy ([facility]) 02/01/2023 Severe alcohol use disorder ([facility]) 02/01/2023 Acute hypoxic respiratory failure ([facility]) 01/29/2023 Closed fracture of metatarsal bone 09/24/2022 Community acquired bacterial pneumonia 09/18/2022 Alcohol withdrawal delirium, acute, hyperactive ([facility]) 09/17/2022 COPD exacerbation ([facility]) 09/16/2022 Withdrawn from alcohol detoxification program 08/26/2022 Coronary artery disease involving [place] coronary artery of [place] heart without angina pectoris 10/02/2021 Presence of stent in right coronary artery 10/02/2021 Primary hypertension 10/02/2021 Mood disorder ([facility]) 09/27/2021 Coagulase negative Staphylococcus bacteremia 09/26/2021 PTSD (post-traumatic stress disorder) 09/26/2021 Leukocytosis 09/26/2021 Generalized abdominal pain 01/16/2020 Thrombocytosis 01/16/2020 Cyst of right kidney 11/23/2018 Dilated bile duct 11/23/2018 Gastroenteritis 11/23/2018 Left upper quadrant pain 11/23/2018 Distal radius fracture 04/20/2013 Discogenic syndrome, 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 Lumbar dysfunction 08/13/2009 Displacement of lumbar intervertebral disc without myelopathy 08/13/2009 Sciatica 08/13/2009 Alcohol use 06/06/2020 Nondependent cannabis abuse 06/06/2020 Generalized anxiety disorder 06/06/2020 PUD (peptic ulcer disease) 06/06/2020 Nicotine dependence 06/06/2020 Degenerative disc disease, lumbar 02/01/2018 Spinal stenosis, lumbar 02/01/2018 Current moderate episode of major depressive disorder without prior episode (HCC) 11/23/2017 Medical Precautions: No active isolations Proper PPE donned/doffed in accordance with facility standards. Fall Risk: [place] Fall Risk Score: 60 (High Risk) Precautions/Restrictions: N/A Family/Caregiver Present: none Overall Cognitive Status: Exceptions - pt with decreased problem solving noted. Overall Orientation Status: Oriented to Person Social/Functional History Patient admitted from home. Lives With: Parent Type of Home: single family home Home Layout: Two Level Home Home Access: Stairs to Enter without Rails (# of stairs: 2+ 1) Bathroom Shower/Tub: Tub/Shower Combo and Shower Chair with Back Toilet: Standard Home Equipment: cane Homemaking Responsibilities: Independent Receives Help From: Family Active Parts Inspector: N/A Prior Level of Function ADL Assistance: Independent Ambulation Assistance: Independent Transfer Assistance: Independent Objective ADLs LE Dressing: SBA Pt able to sit at EOB to don socks with SBA. Did not need to use the bathroom this date, however based off observation, pt would be able to perform bathroom level toileting with SBA. Upper Extremity Assessment AROM: WFL PROM: WFL Strength: WFL Vision: no visual deficits Hearing: normal Bed Mobility Supine to sit: SBA Scooting: SBA Pt able to perform bed mobility with SBA this date. Pt moving quickly requiring cues for line management. Denied dizziness. Transfers/Functional Mobility Sit to stand: Contact Guard Stand to sit: Contact Guard Standing balance: Contact Guard Functional mobility: Contact Guard, Min Assist Pt ai to stand from the EOB with CGA. He then walked a moderate distance in the brizuela, fluctuating between CGA and Min A with very mild LOBs noted. One mild LOB when attempting to step over his O2 line. Cues for safety. Pt did not require a FWW this date but may demo improvements with mobility using a cane . Pts Spo2 was 88-93% on 4L during the session and HR fluctuated between 110-130s. Device(s) used: none AM-PAC AM-PAC Inpatient Daily Activity Raw Score: 19 ADL Inpatient [facility] G-Code Modifier: CK Plan Pt would benefit from skilled acute OT services to address Strengthening, Balance Training, Functional Mobility Training, Endurance Training, Pain Management, Safety Education and Training, Patient/Caregiver Training, Equipment Evaluation/Education, Positioning, Self-Care/ADL Training, and Home Management Training. Frequency: 4 visits during current hospital admission or until additional recommendations are made Barriers: balance deficits Prognosis: good Safety/Education Safety Safety Devices in place: All fall risk precautions in place, call light within reach, left in chair, chair alarm in place, gait belt, patient at risk for falls, and nurse notified Restraints: N/A Education Education Given To: patient Education Provided: OT Role, Plan of Care, and Discharge Recommendations Education Method: Verbal Barriers to Learning: None Education Outcome: Verbalized Understanding Goals Patient Stated Goal: to go home Encounter Problems Encounter Problems (Active) Balance Patient will maintain dynamic standing balance for 4 minutes independently in order to demonstrate decreased risk of falling. Start: 02/02/23 Expected End: 02/06/23 Dressing Upper Extremities Patient will complete upper body ADLs and grooming tasks with Mod I Start: 02/02/23 Expected End: 02/06/23 Dressings Lower Extremities Patient will perform LB ADLs with mod I Start: 02/02/23 Expected End: 02/06/23 Mobility Pt will perform functional mobility and transfers independently Start: 02/02/23 Expected End: 02/06/23 Toileting Patient will complete toileting tasks at standard toilet with modified independence. Start: 02/02/23 Expected End: 02/06/23 Therapy Time Individual Co-treatment Time In 1306 Time Out 1321 Minutes 15 [place] OT Patient's Occupational Therapy Plan of Care supervision is transferred to a [facility] Occupational Therapist. Goals and/or treatment plan was established in collaboration with patient/family/other representatives. ICU Progress Note Name: El Smith : 1980(42 y.o.) Date: 02/02/23 Team: MICU Attending: Catia Subjective: Hospital Summary: El Smith is a 42M hx alcohol, tobacco, and medical marijuana use (vape pen), COPD, HTN/HLD, chronic pain (alleges gabapentin, methadone use -- [facility]), CAD s/p PCI (2021) who presented to [facility] ED on 01/29 for persistent non-productive cough that has been worsening x3-4 days, causes him to vomit. Symptoms began with sinus pressure. +sick contacts, states his whole family has had a cold for the past week. [id number] SOB. Just recently got a new vape pen 3 days ago. Complains of rib pain, states he's cracked his ribs and manubrium due to coughing and osteopenia. Otherwise, ROS rascon negative -- no fever, chills, rigors, chest pain, hemoptysis, night sweats, abd pain, n/d, unilateral weakness, LE edema. No new rash. Does attest to joint pain and intermittent swelling and heat in his hands and wrists but states his bilateral wrists have carpal tunnel. In the ED he was notably hypoxic and required rapid up-titration of oxygen, placed on NRB. Had lactic acid elevation and leukocytosis. CXR suggestive of possible pneumonia. CTA obtained, negative for PE but did reveal diffuse bilateral GGO and emphysematous changes/fibrosis. He was transferred to [facility] ICU for further management. Started on high dose steroids for concerns of EVALI as well as antibiotics. Titrated up to HFNC and weaned down. Went through severe withdrawals and required precedex, phenobarb, and ativan for control of his symptoms. Has since been weaned down to nasal cannula. Interval Events: - Patient seen and examined. More awake, interactive this morning. Remains on nasal cannula. Breathing improved however still somewhat labored. Sats appropriate on 4LNC. Does not remember past couple of days, is answering questions more appropriately. Appears more calm. Scheduled Meds:aspirin, 81 mg, Oral, Daily cefTRIAXone, 2,000 mg, IntraVENous, q24h enoxaparin, 40 mg, SubCUTAneous, q24h gabapentin, 300 mg, Oral, 3 times per day influenza, 0.5 mL, IntraMUSCular, Prior to discharge ipratropium-albuterol, 3 mL, Nebulization, q4h methylPREDNISolone sod suc (PF), 125 mg, IntraVENous, q8h nicotine, 1 patch, TransDERmal, Daily Followed by [START ON 03/13/2023] nicotine, 1 patch, TransDERmal, Daily Followed by [START ON 03/27/2023] nicotine, 1 patch, TransDERmal, Daily pantoprazole, 40 mg, Oral, q AM thiamine, 100 mg, Oral, TID Continuous Infusions:dexmedeTOMIDine, 0.1-1.5 mcg/kg/hr, Last Rate: Stopped (02/02/23 0636) Objective: Last Vitals: BP MAP (!) 141/102 (02/02/23 0047) 111 (02/02/23 0047) Arterial BP MAP Temp 36.7 C (98 F) (02/02/23 0400) Pulse 92 (02/02/23 0500) Resp 26 (02/02/23 0500) SpO2 94 % (02/02/23 0500) Weight 96.1 kg (211 lb 13.8 oz) (02/01/23 0600) BMI Body mass index is 30.4 kg/m . I/O: 02/01 0700 - 02/02 0659 In: 2444.4 [P.O.:1130; I.V.:1314.4] Out: 1170 [Urine:1170] Ventilator: FiO2 (%): 40 % Oxygen Delivery: O2 Flow Rate (L/min): 4 L/min Invasive Lines / Tubes / Drains: Peripheral IV 01/29/23 Right Antecubital (Active) Number of days: 3 Peripheral IV 01/30/23 Left Forearm (Active) Number of days: 3 Male External Urinary Catheter Medium (Active) Number of days: 1 Central Line Indication: NA - patient does not have a central line Conrad Indications: NA - patient does not have a Conrad catheter Restraints: NA - patient is not restrained. Wounds: Constitutional: General Appearance [x]WDWN []Obese []Cachectic []Thin []Ill Eyes: Inspection of Pupils/Irises Pupils round and react: [x]Yes []No Sclera: []Icteric [x]Non-Icteric Inspection of Conjunctiva/Lids Conjunctiva: []Injected [x]Non-Injected Lids: [x]Intact []Lesion Present ENT/Mouth: External Inspection of ears/nose [x] Normal [] Scar/Lesion/Mass Inspection of teeth/lips/gums Dentition: [x][place] Teeth []Dentures Lips/Gums: [x]Intact []Lesion Present Mucosa: [x][place] [x]Moist []Dry Neck: External Appearance Overall Appearance: [x]Normal []Lesion/Mass/Crepitus Present Trachea midline: [x]Yes []No Thyroid [x]Normal []Enlarged []Tender []Mass []Absent Respiratory: Respiratory effort []Labored [x]Non-Labored [] Mechanically-Ventilated Auscultation []Clear []Crackles [x]End expiratory Wheezes []Rhonchi Cardiovascular: Auscultation Rate: [x]Regular []Irregular []Tachycardia []Bradycardia Rhythm: [x]Regular []Irregular Murmur: []Present []Absent Extremities Peripheral Edema: []Present [x]Absent Varicosities: []Present []Absent Gastrointestinal: Abdomen Palpation: [x]Soft []Firm []Tender [x]Non-Tender []Distended [x]Non-distended Mass: []Present []Absent Bowel Sounds: []Present []Absent Hernia: []Present []Absent Liver/Spleen: []Hepatosplenomegaly [x]Organomegaly Absent Musculoskeletal: Inspection of Digits and Nails Cyanosis: []Present [x]Absent Clubbing: []Present [x]Absent Ischemia: []Present [x]Absent Infection: []Present []Absent Extremities CADENA Equally: Except ([]RUE []RLE []LUE []LLE) Strength/Tone: Intact and Normal ([x]RUE [x]RLE [x]LUE [x]LLE) Skin: Inspection [x]Normal []Rash []Lesion []Ulcer Palpation [x]Warm []Cool []Dry []Clammy []Nodules []Induration []Skin-tightening Cap-Refill: [x] <3 sec [] >3 seconds (delayed) Neurologic: David Coma Scale Score: 14 [x] Sensation grossly intact Psych: Mental Status Alert: [x]Yes [] No Oriented: []x0 []X1 [x]X2 []x3 Mood/Affect []Normal []Flat [x]Agitated []Depressed []Anxious []Calm []Sedated []NAD [facility] within last 24 hours- BMP: Recent Labs 01/31/2331802/01/2351102/02/23424 NA 134* 134* 130* K 3.9 4.0 4.6 CL 99 100 101 CO2 33* 30 27 BUN 27* 23* 21* CREATININE 0.49* 0.47* 0.52* CALCIUM 8.2* 8.3* 8.1* MG 2.7* 2.3 2.1 PHOS 2.9 3.2 3.6 LFTs: Recent Labs 01/31/2331802/01/2351102/02/23 042 AST 23 26 31 ALT 15 15 15 PROT 6.3 6.5 6.3 ALBUMIN 3.2* 3.2* 3.1* BILITOT 0.3 0.2 0.3 ALKPHOS 124 120 110 Glucose: Recent Labs 01/31/2331802/01/2351102/02/23 0425 GLUCOSE 164* 142* 121* Procal: Recent Labs 02/01/23511 PROCAL 1.16* CBC: Recent Labs 01/31/2331802/01/2351102/02/23 042 WBC 11.5* 13.9* 11.4* HGB 12.5* 12.5* 12.6* HCT 39.3* 38.7* 39.7* PLT 349 367 367 MCV 84.0 83.1 84.0 RDW 19.5* 18.9* 19.1* ABGs: Recent Labs 01/31/23 0959 PHART 7.450 [id number] 40.8 PO2ART 71.5* EGQ4RNE 28.4* SO2ART 94.8* Lactic Acid: No results for input(s): LACTATE in the last 72 hours. INR: No results for input(s): INR in the last 72 hours. Cardiac Injury Profile: No results for input(s): CKTOTAL, CKMB, TROPONINI in the last 72 hours. Labs in Last 3 months: No results found for: TSH, VITD25, PSA, INR, GLUF Microbiology- Urine Cx: No results found for: URINECX Blood Cx: Lab Results Component Value Date BLOODCX No growth at 72 hours 01/29/2023 BLOODCX No growth at 72 hours 01/29/2023 Sputum Cx: Lab Results Component Value Date RESPCULT Few respiratory mack present. 01/30/2023 Gram Stain: Lab Results Component Value Date LABGRAM (A) 01/30/2023 Moderate Polymorphonuclear leukocytes per low power field LABGRAM Few Epithelial cells per low power field (A) 01/30/2023 LABGRAM Rare Gram positive cocci (A) 01/30/2023 LABGRAM Rare Gram negative diplococci (A) 01/30/2023 PNA PCR: Lab Results Component Value Date HUMANMETAPNE Not Detected 01/30/2023 COVID19: No results found for: COVID19 Legionella Ag: Lab Results Component Value Date LEGIONELLAPN Not Detected 01/30/2023 Strep Ag: No results for input(s): STREPPNEUMO in the last 72 hours. Imaging- CXR 02/01/2023 Findings: Frontal chest view shows diffuse patchy infiltrates/edema throughout both lungs that have increased in the upper lungs but slightly decreased in the bases compared to last exam. The lungs are also congested and the heart is enlarged. There is no mediastinal widening, sizable pleural effusion, or other significant interval change Assessment and Plan: Principal Problem: Acute hypoxic respiratory failure (HCC) Active Problems: Alcohol withdrawal delirium, acute, hyperactive (HCC) Severe opioid use disorder on maintenance therapy (HCC) Severe alcohol use disorder (HCC) Assessment: Acute Respiratory Failure with hypoxia Vaping Associated Lung Injury Possible Lipoid pneumonia Moraxella PNA Acute toxic metabolic encephalopathy Chronic Pain disorder Hx CAD s/p PCI Severe EtOH Withdrawal Plan: - Continue HFNC wean as tolerated to NC, PNA PCR with moraxella plan for 7 day course (Day 57). Now taking orals. Switch Ceftriaxone to Augmentin to complete course. - Wean NC goal O2 sat >88% - diurese today for fluid goal negative 1-2L - Off precedex. Currently Green slipped without capacity and elevated risk to self and others however now more awake and appropriate. Still requiring need for high medical care however more understanding of current situation. Will re-evaluate need for Green slip. - Continue CIWA protocol. - continue phenobarb given severe withdrawal symptoms in addition to current ativan PRN. Begin reducing doses of phenobarb needed given improvement. - Methadone verified with [facility]. Currently receives 125mg of liquid methadone daily with last dose the morning of admission on 01/29/2023. - addiction medicine following. Restarted on methadone. Continue current dose. GI Prophylaxis: None DVT Prophylaxis: Lovenox 40 q 24hr - creatinine clearance >30 Disposition: Transfer to [facility] if remains stable off precedex Critical Care Time: 31 minutes Total critical care time caring for this patient with life threatening, unstable organ failure, including direct patient contact, management of life support systems, review of data including imaging and labs, discussions with other team members and physicians, excluding procedures. ICU Progress Note Name: El Smith : 1980(42 y.o.) Date: 02/01/23 Team: MICU Attending: Catia Chief Complaint: Acute Respiratory Failure Subjective: Hospital Summary: El Smith is a 42M hx alcohol, tobacco, and medical marijuana use (vape pen), COPD, HTN/HLD, chronic pain (alleges gabapentin, methadone use -- [facility]), CAD s/p PCI (2021) who presented to [facility] ED on 01/29 for persistent non-productive cough that has been worsening x3-4 days, causes him to vomit. Symptoms began with sinus pressure. +sick contacts, states his whole family has had a cold for the past week. Ryci-hv-oskworly SOB. Just recently got a new vape pen 3 days ago. Complains of rib pain, states he's cracked his ribs and manubrium due to coughing and osteopenia. Otherwise, ROS rascon negative -- no fever, chills, rigors, chest pain, hemoptysis, night sweats, abd pain, n/d, unilateral weakness, LE edema. No new rash. Does attest to joint pain and intermittent swelling and heat in his hands and wrists but states his bilateral wrists have carpal tunnel. In the ED he was notably hypoxic and required rapid up-titration of oxygen, placed on NRB. Had lactic acid elevation and leukocytosis. CXR suggestive of possible pneumonia. CTA obtained, negative for PE but did reveal diffuse bilateral GGO and emphysematous changes/fibrosis. He was transferred to [facility] ICU for further management. Started on high dose steroids for concerns of EVALI as well as antibiotics. Titrated up to HFNC and weaned down. Went through severe withdrawals and required precedex, phenobarb, and ativan for control of his symptoms. Interval Events: - Patient seen and examined. Weaned down to nasal cannula today. More awake and interactive however still confused. More coherent today. Continues to require precedex, scheduled phenobarb, and ativan for withdrawal symptoms. Breathing appears improved but still requiring nasal cannula for support. Non-labored breathing when calm, continues to desaturate when agitated and knocks off nasal cannula. Scheduled Meds:aspirin, 81 mg, Oral, Daily cefTRIAXone, 2,000 mg, IntraVENous, q24h enoxaparin, 40 mg, SubCUTAneous, q24h gabapentin, 300 mg, Oral, 3 times per day influenza, 0.5 mL, IntraMUSCular, Prior to discharge ipratropium-albuterol, 3 mL, Nebulization, q4h methadone, 62 mg, Oral, Once Followed by [START ON 02/02/2023] methadone, 125 mg, Oral, Daily methylPREDNISolone sod suc (PF), 125 mg, IntraVENous, q8h nicotine, 1 patch, TransDERmal, Daily Followed by [START ON 03/13/2023] nicotine, 1 patch, TransDERmal, Daily Followed by [START ON 03/27/2023] nicotine, 1 patch, TransDERmal, Daily pantoprazole, 40 mg, Oral, q AM thiamine, 100 mg, Oral, TID Continuous Infusions:dexmedeTOMIDine, 0.1-1.5 mcg/kg/hr, Last Rate: 1.5 mcg/kg/hr (02/01/23 1228) Objective: Last Vitals: BP MAP (!) 167/112 (02/01/23 1202) 127 (02/01/23 1202) Arterial BP MAP Temp 36.4 C (97.5 F) (02/01/23 0938) Pulse 86 (02/01/23 1202) Resp 17 (02/01/23 1202) SpO2 94 % (02/01/23 1202) Weight 96.1 kg (211 lb 13.8 oz) (02/01/23 0600) BMI Body mass index is 30.4 kg/m . I/O: 01/31 07 - 02/01 659 In: 1826.1 [P.O.:921; I.V.:805.1] Out: 650 [Urine:650] Ventilator: FiO2 (%): 40 % Oxygen Delivery: O2 Flow Rate (L/min): 4 L/min Invasive Lines / Tubes / Drains: Peripheral IV 01/29/23 Right Antecubital (Active) Number of days: 2 Peripheral IV 01/30/23 Left Forearm (Active) Number of days: 2 Male External Urinary Catheter Medium (Active) Number of days: 0 Central Line Indication: NA - patient does not have a central line Conrad Indications: NA - patient does not have a Conrad catheter Restraints: NA - patient is not restrained. Wounds: Constitutional: General Appearance [x]WDWN []Obese []Cachectic []Thin []Ill Eyes: Inspection of Pupils/Irises Pupils round and react: [x]Yes []No Sclera: []Icteric [x]Non-Icteric Inspection of Conjunctiva/Lids Conjunctiva: []Injected [x]Non-Injected Lids: [x]Intact []Lesion Present ENT/Mouth: External Inspection of ears/nose [x] Normal [] Scar/Lesion/Mass Inspection of teeth/lips/gums Dentition: [x][place] Teeth []Dentures Lips/Gums: [x]Intact []Lesion Present Mucosa: [x][place] [x]Moist []Dry Neck: External Appearance Overall Appearance: [x]Normal []Lesion/Mass/Crepitus Present Trachea midline: [x]Yes []No Thyroid [x]Normal []Enlarged []Tender []Mass []Absent Respiratory: Respiratory effort []Labored [x]Non-Labored [] Mechanically-Ventilated Auscultation []Clear []Crackles []Wheezes [x]Rhonchi Cardiovascular: Auscultation Rate: [x]Regular []Irregular []Tachycardia []Bradycardia Rhythm: [x]Regular []Irregular Murmur: []Present []Absent Extremities Peripheral Edema: []Present [x]Absent Varicosities: []Present []Absent Gastrointestinal: Abdomen Palpation: [x]Soft []Firm []Tender [x]Non-Tender []Distended [x]Non-distended Mass: []Present []Absent Bowel Sounds: []Present []Absent Hernia: []Present []Absent Liver/Spleen: []Hepatosplenomegaly [x]Organomegaly Absent Musculoskeletal: Inspection of Digits and Nails Cyanosis: []Present [x]Absent Clubbing: []Present [x]Absent Ischemia: []Present [x]Absent Infection: []Present []Absent Extremities CADENA Equally: Except ([]RUE []RLE []LUE []LLE) Strength/Tone: Intact and Normal ([x]RUE [x]RLE [x]LUE [x]LLE) Skin: Inspection [x]Normal []Rash []Lesion []Ulcer Palpation [x]Warm []Cool []Dry []Clammy []Nodules []Induration []Skin-tightening Cap-Refill: [x] <3 sec [] >3 seconds (delayed) Neurologic: David Coma Scale Score: 14 [x] Sensation grossly intact Psych: Mental Status Alert: [x]Yes [] No Oriented: []x0 []X1 [x]X2 []x3 Mood/Affect []Normal []Flat [x]Agitated []Depressed []Anxious []Calm []Sedated []NAD Select Labs within last 24 hours- BMP: Recent Labs 01/30/2354301/31/2331802/01/23511 NA 133* 134* 134* K 3.6 3.9 4.0 CL 102 99 100 CO2 31* 33* 30 BUN 16 27* 23* CREATININE 0.63* 0.49* 0.47* CALCIUM 8.0* 8.2* 8.3* MG 2.5* 2.7* 2.3 PHOS 2.8 2.9 3.2 LFTs: Recent Labs 01/30/2354301/31/2331802/01/23 0512 AST 39 23 26 ALT 17 15 15 PROT 6.7 6.3 6.5 ALBUMIN 3.3* 3.2* 3.2* BILITOT 0.4 0.3 0.2 ALKPHOS 138* 124 120 Glucose: Recent Labs 01/29/23184501/29/23221201/30/2354301/31/2331802/01/23511 GLUCOSE 101* 164* 171* 164* 142* Procal: Recent Labs 01/29/231845 PROCAL 9.53* CBC: Recent Labs 01/30/2354301/31/2331802/01/23511 WBC 10.4 11.5* 13.9* HGB 12.0* 12.5* 12.5* HCT 37.2* 39.3* 38.7* PLT 328 349 367 MCV 84.5 84.0 83.1 RDW 18.9* 19.5* 18.9* ABGs: Recent Labs 01/29/23184501/29/23224401/31/23 0959 PHART -- 7.414 7.450 DAB7NTQ -- 42.5 40.8 PO2ART -- 61.0* 71.5* [id number] -- 27.2* 28.4* SO2ART -- 91.2* 94.8* [id number] 2L -- -- Lactic Acid: Recent Labs 01/29/23185001/29/232212 LACTATE 3.6* 1.5 INR: No results for input(s): INR in the last 72 hours. Cardiac Injury Profile: Recent Labs 01/29/23184501/29/23221201/30/23120 TROPONINI <0.012 <0.012 <0.012 Labs in Last 3 months: No results found for: TSH, VITD25, PSA, INR, GLUF Microbiology- Urine Cx: No results found for: URINECX Blood Cx: Lab Results Component Value Date BLOODCX No growth at 48 hours 01/29/2023 BLOODCX No growth at 48 hours 01/29/2023 Sputum Cx: Lab Results Component Value Date RESPCULT Few respiratory mack present. 01/30/2023 Gram Stain: Lab Results Component Value Date LABGRAM (A) 01/30/2023 Moderate Polymorphonuclear leukocytes per low power field LABGRAM Few Epithelial cells per low power field (A) 01/30/2023 LABGRAM Rare Gram positive cocci (A) 01/30/2023 LABGRAM Rare Gram negative diplococci (A) 01/30/2023 PNA PCR: Lab Results Component Value Date HUMANMETAPNE Not Detected 01/30/2023 COVID19: No results found for: COVID19 Legionella Ag: Lab Results Component Value Date LEGIONELLAPN Not Detected 01/30/2023 Strep Ag: No results for input(s): STREPPNEUMO in the last 72 hours. Imaging- CXR 01/30/2023 Findings: Borderline cardiomegaly. Pulmonary vasculature is mildly indistinct. Patchy consolidation in the lung bases has increased from prior study. No pneumothorax . No displaced rib fractures. IMPRESSION: Worsening bibasilar consolidation. Assessment and Plan: Principal Problem: Acute hypoxic respiratory failure (HCC) Assessment: Acute Respiratory Failure with hypoxia Vaping Associated Lung Injury Possible Lipoid pneumonia Moraxella PNA Acute toxic metabolic encephalopathy Chronic Pain disorder Hx CAD s/p PCI Severe EtOH Withdrawal Plan: - Continue HFNC wean as tolerated to NC, PNA PCR with moraxella plan for 7 day course (Day 4/7). Switch to Ceftriaxone and stop vanc/zosyn. - Wean HFNC, goal O2 sat >88% - continue precedex. Currently Green slipped without capacity and elevated risk to self and others. - Continue CIWA protocol. - continue phenobarb given severe withdrawal symptoms in addition to current ativan PRN. - will eventually need bronchoscopy however not stable enough at this time. If intubated would pursue. - Methadone verified with [facility]. Currently receives 125mg of liquid methadone daily with last dose the morning of admission on 01/29/2023. - Will plan to restart with addiction medicine to assist with weaning of other medications for withdrawal now that patient is on nasal cannula and demonstrating improvement. GI Prophylaxis: None DVT Prophylaxis: Lovenox 40 q 24hr - creatinine clearance >30 Disposition: Remain in ICU Status Critical Care Time: 33 minutes Total critical care time caring for this patient with life threatening, unstable organ failure, including direct patient contact, management of life support systems, review of data including imaging and labs, discussions with other team members and physicians, excluding procedures. Nutrition Assessment Type and Reason for Visit: Initial, Positive Nutrition Screen (needs much sedation- on high flow 02) Nutrition Recommendations/Plan: Suggest to continue a regular diet as tolerated to promote intake- -per RN is able to swallow. On ciwa with sedation per MNT protocol ,will initiate chocolate Ensure high protein bid( 350 heena, 20 gm pro/serving) Please document PO intakes-diet and ONS- consistently in the flowsheet to better assess intake adequacy. Suggest daily mvi Monitor labs, status, intakes,weights to reassess. 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 Symptoms began with sinus pressure. +sick contacts, states his whole family has had a cold for the past week. Hvqj-xh-emnstagl SOB. Just recently got a new vape pen 3 days ago. Complains of rib pain, states he's cracked his ribs and manubrium due to coughing and osteopenia. Otherwise, ROS rascon negative -- no fever, chills, rigors, chest pain, hemoptysis, night sweats, abd pain, n/d, unilateral weakness, LE edema. No new rash. Does attest to joint pain and intermittent swelling and heat in his hands and wrists but states his bilateral wrists have carpal tunnel. In the ED he was notably hypoxic and required rapid up-titration of oxygen, placed on NRB. Had lactic acid elevation and leukocytosis. CXR suggestive of possible pneumonia. CTA obtained, negative for PE but did reveal diffuse bilateral GGO and emphysematous changes/fibrosis. He was transferred to [facility] ICU for further management. Interval Events: Patient requiring high doses of benzos, resumed some home medication, and under sedation, elevated risk for progression to respiratory failure, with severe pneumonia, severe hypoxemia, and encephalopathy. Echo was not able to be completed fully due to patient agitated delirium, he frequently gets up, is disoriented, redirectable, becomes agitated, gets out of bed, removes supplemental oxygen frequently, he is requiring high dose anticoagulation.. He is at elevated risk for respiratory failure, and requirement of intubation. Monitoring. Limited echo, with preserved ejection fraction, normal systolic function, RV function reported normal. Green slip. No capacity to leave ama.Assessment: 1. Respiratory failure, acute, hypoxic , severe 2. Vaping induced lung injury 3. Possible lipoind pneumonia, unable to bronch at this time 4. Moraxella pneumonia 5. Encephalopathy with delirium and psychosis 6. Chronic pain disorder 7. Hx of cad s/p pci 8. Severe etoh withdrawal self/others, increased risk for respiratory failure . [facility] withdrawal protocol intubated, would req bronch .. 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, has tremors ,abd distended , na 134, glu 164, ca 8.2,alb 3.2, ntprobnp 503, onsolumedrol, on high flow Wound Type: None (Mika 14- has tremors) Current Nutrition Therapies: Adult diet Regular Current Oral Intake Average Meal Intake: 26-50%, 76-100% (has since required more sedation) Average Supplements Intake: None Ordered (RD to order) Anthropometric Measures: Height: 177.8 cm (5' 10) Current Body Weight: 95.3 kg (210 lb 1.6 oz) Weight Source: Stated Usual Body Weight: 90.7 kg (200 lb) (many wt variances) % Weight Change (Calculated): 5 [place] Body Weight (lbs) (Calculated): 166 lbs [place] Body Weight (Kg) (Calculated): 75 kg % [place] Body Weight (Calculated): 126.6 % BMI (kg/m2) (Calculated): 30.1 BMI Categories: Obese Class 1 (BMI 30.0-34.9) (28.7 ubw) Nutrition Diagnosis: Predicted inadequate energy intake, Biting/chewing (masticatory) difficulty related to psychological cause or life stress, impaired respiratory function, increase demand for energy/nutrients, impaired nutrient utilization, other (comment), cognitive or neurological impairment (pna ,copd,etoh) as evidenced by intake 0-25%, other (comment), intake 51-75% (on high sedation -can swallow- will order ONS, on ciwa- hi flow o2) Nutrition Interventions: Nutrition Education/Counseling: No recommendation at this time Coordination of Nutrition Care: Continue to monitor while inpatient, Feeding Assistance/Environment Change Plan of Care discussed with: DESIREE Morgan Goals: Goals: PO intake 50% or greater, other (specify) Specify Other Goals: meet >50% OF needs with diet and oNS Nutrition Monitoring and Evaluation: Behavioral-Environmental Outcomes: None Identified Food/Nutrient Intake Outcomes: Food and Nutrient Intake, Supplement Intake Physical Signs/Symptoms Outcomes: Biochemical Data, Chewing or Swallowing, GI Status, Nausea or Vomiting, Fluid Status or Edema, Hemodynamic Status, Meal Time Behavior, Nutrition Focused Physical Findings, Skin, Weight Discharge Planning: Too soon to determine Kathy Tim RD Contact: [phone] or secure chat ICU Progress Note Name: El Sirisha Luis : 1980(42 y.o.) Date: 01/31/23 Team: MICU Attending: Catia Subjective: Hospital Summary: El Smith is a 42M hx alcohol, tobacco, and medical marijuana use (vape pen), COPD, HTN/HLD, chronic pain (alleges gabapentin, methadone use -- [facility]), CAD s/p PCI (2021) who presented to [facility] ED on 01/29 for persistent non-productive cough that has been worsening x3-4 days, causes him to vomit. Symptoms began with sinus pressure. +sick contacts, states his whole family has had a cold for the past week. [id number] SOB. Just recently got a new vape pen 3 days ago. Complains of rib pain, states he's cracked his ribs and manubrium due to coughing and osteopenia. Otherwise, ROS rascon negative -- no fever, chills, rigors, chest pain, hemoptysis, night sweats, abd pain, n/d, unilateral weakness, LE edema. No new rash. Does attest to joint pain and intermittent swelling and heat in his hands and wrists but states his bilateral wrists have carpal tunnel. In the ED he was notably hypoxic and required rapid up-titration of oxygen, placed on NRB. Had lactic acid elevation and leukocytosis. CXR suggestive of possible pneumonia. CTA obtained, negative for PE but did reveal diffuse bilateral GGO and emphysematous changes/fibrosis. He was transferred to [facility] ICU for further management. Interval Events: - Patient seen and examined. Still having episodes of agitation and still requiring HFNC. Slowly weaning HFNC settings. ABG obtained without evidence of acute retention. Requiring phenobarb and PRN ativan for agitation and withdrawal symptoms. Tremulous today but awakens and follows commands. Otherwise breathing comfortably on HFNC. Scheduled Meds:aspirin, 81 mg, Oral, Daily enoxaparin, 40 mg, SubCUTAneous, q24h gabapentin, 300 mg, Oral, 3 times per day influenza, 0.5 mL, IntraMUSCular, Prior to discharge ipratropium-albuterol, 3 mL, Nebulization, q4h methylPREDNISolone sod suc (PF), 125 mg, IntraVENous, q8h nicotine, 1 patch, TransDERmal, Daily Followed by [START ON 03/13/2023] nicotine, 1 patch, TransDERmal, Daily Followed by [START ON 03/27/2023] nicotine, 1 patch, TransDERmal, Daily pantoprazole, 40 mg, Oral, q AM piperacillin-tazobactam, 3,375 mg, IntraVENous, q8h thiamine, 100 mg, IntraVENous, q24h thiamine, 100 mg, Oral, TID Vancomycin HCl in NS, 1,500 mg, IntraVENous, q12h Continuous Infusions:dexmedeTOMIDine, 0.1-1.5 mcg/kg/hr, Last Rate: 1 mcg/kg/hr (01/31/23 0853) Objective: Last Vitals: BP MAP (!) 136/92 (01/31/23601) 102 (01/31/23601) Arterial BP MAP Temp 37 C (98.6 F) (01/31/23 0308) Pulse 81 (01/31/23601) Resp 18 (01/31/23601) SpO2 96 % (01/31/23601) Weight 95.3 kg (210 lb 1.6 oz) (01/31/23 0337) BMI Body mass index is 30.15 kg/m . I/O: 01/30 0700 - 01/31 659 In: 1320 [P.O.:640; I.V.:224] Out: 700 [Urine:700] Ventilator: FiO2 (%): 50 % Oxygen Delivery: O2 Flow Rate (L/min): 45 L/min Invasive Lines / Tubes / Drains: Peripheral IV 01/29/23 Right Antecubital (Active) Number of days: 1 Peripheral IV 01/30/23 Left Forearm (Active) Number of days: 1 Central Line Indication: NA - patient does not have a central line Conrad Indications: NA - patient does not have a Conrad catheter Restraints: NA - patient is not restrained. Wounds: Constitutional: General Appearance [x]WDWN []Obese []Cachectic []Thin []Ill Eyes: Inspection of Pupils/Irises Pupils round and react: [x]Yes []No Sclera: []Icteric [x]Non-Icteric Inspection of Conjunctiva/Lids Conjunctiva: []Injected [x]Non-Injected Lids: [x]Intact []Lesion Present ENT/Mouth: External Inspection of ears/nose [x] Normal [] Scar/Lesion/Mass Inspection of teeth/lips/gums Dentition: [x][place] Teeth []Dentures Lips/Gums: [x]Intact []Lesion Present Mucosa: [x][place] [x]Moist []Dry Neck: External Appearance Overall Appearance: [x]Normal []Lesion/Mass/Crepitus Present Trachea midline: [x]Yes []No Thyroid [x]Normal []Enlarged []Tender []Mass []Absent Respiratory: Respiratory effort []Labored [x]Non-Labored [] Mechanically-Ventilated Auscultation []Clear []Crackles []Wheezes [x]Rhonchi Cardiovascular: Auscultation Rate: [x]Regular []Irregular []Tachycardia []Bradycardia Rhythm: [x]Regular []Irregular Murmur: []Present []Absent Extremities Peripheral Edema: []Present [x]Absent Varicosities: []Present []Absent Gastrointestinal: Abdomen Palpation: [x]Soft []Firm []Tender [x]Non-Tender []Distended [x]Non-distended Mass: []Present []Absent Bowel Sounds: []Present []Absent Hernia: []Present []Absent Liver/Spleen: []Hepatosplenomegaly [x]Organomegaly Absent Musculoskeletal: Inspection of Digits and Nails Cyanosis: []Present [x]Absent Clubbing: []Present [x]Absent Ischemia: []Present [x]Absent Infection: []Present []Absent Extremities CADENA Equally: Except ([]RUE []RLE []LUE []LLE) Strength/Tone: Intact and Normal ([x]RUE [x]RLE [x]LUE [x]LLE) Skin: Inspection [x]Normal []Rash []Lesion []Ulcer Palpation [x]Warm []Cool []Dry []Clammy []Nodules []Induration []Skin-tightening Cap-Refill: [x] <3 sec [] >3 seconds (delayed) Neurologic: GCS EYE: 3 - Opens to verbal commands GCS MOTOR: 5 - Localizes to pain (purposeful movements to painful stimulus) GCS VERBAL: 3 - Inappropriate words Total GCS: 11 [x] Sensation grossly intact Psych: Mental Status Alert: [x]Yes [] No Oriented: [x]x0 []X1 []X2 []x3 Mood/Affect []Normal []Flat [x]Agitated []Depressed []Anxious []Calm []Sedated []NAD Select Labs within last 24 hours- BMP: Recent Labs 01/29/23221201/30/2344 01/31/23318 NA 134* 133* 134* K 3.3* 3.6 3.9 CL 98 102 99 CO2 26 31* 33* BUN 12 16 27* CREATININE 0.63* 0.63* 0.49* CALCIUM 7.7* 8.0* 8.2* MG -- 2.5* 2.7* PHOS -- 2.8 2.9 LFTs: Recent Labs 01/29/23221201/30/2354301/31/23318 AST 46 39 23 ALT 17 17 15 PROT 6.9 6.7 6.3 ALBUMIN 3.6 3.3* 3.2* BILITOT 0.5 0.4 0.3 ALKPHOS 138* 138* 124 Glucose: Recent Labs 01/29/23184501/29/23221201/30/23 0544 01/31/23 0319 GLUCOSE 101* 164* 171* 164* Procal: Recent Labs 01/29/231845 PROCAL 9.53* CBC: Recent Labs 01/29/23221201/30/2344 01/31/239 WBC 14.4* 10.4 11.5* HGB 12.1* 12.0* 12.5* HCT 37.2* 37.2* 39.3* PLT 338 328 349 MCV 84.3 84.5 84.0 RDW 18.8* 18.9* 19.5* ABGs: Recent Labs 01/29/23184501/29/23224401/31/23 0959 PHART -- 7.414 7.450 [id number] -- 42.5 40.8 PO2ART -- 61.0* 71.5* [id number] -- 27.2* 28.4* SO2ART -- 91.2* 94.8* [id number] 2L -- -- Lactic Acid: Recent Labs 01/29/23185001/29/232212 LACTATE 3.6* 1.5 INR: No results for input(s): INR in the last 72 hours. Cardiac Injury Profile: Recent Labs 01/29/23 1846 01/29/23 2213 01/30/23 0121 TROPONINI <0.012 <0.012 <0.012 Labs in Last 3 months: No results found for: TSH, VITD25, PSA, INR, GLUF Microbiology- Urine Cx: No results found for: URINECX Blood Cx: Lab Results Component Value Date BLOODCX No growth at 24 hours 01/29/2023 BLOODCX No growth at 24 hours 01/29/2023 Sputum Cx: Lab Results Component Value Date RESPCULT Few respiratory mack present. 01/30/2023 Gram Stain: Lab Results Component Value Date LABGRAM (A) 01/30/2023 Moderate Polymorphonuclear leukocytes per low power field LABGRAM Few Epithelial cells per low power field (A) 01/30/2023 LABGRAM Rare Gram positive cocci (A) 01/30/2023 LABGRAM Rare Gram negative diplococci (A) 01/30/2023 PNA PCR: Lab Results Component Value Date HUMANMETAPNE Not Detected 01/30/2023 COVID19: No results found for: COVID19 Legionella Ag: Lab Results Component Value Date LEGIONELLAPN Not Detected 01/30/2023 Strep Ag: No results for input(s): STREPPNEUMO in the last 72 hours. Imaging- CXR 01/30/2023 Findings: Borderline cardiomegaly. Pulmonary vasculature is mildly indistinct. Patchy consolidation in the lung bases has increased from prior study. No pneumothorax . No displaced rib fractures. IMPRESSION: Worsening bibasilar consolidation. Assessment and Plan: Principal Problem: Acute hypoxic respiratory failure (HCC) Assessment: Acute Respiratory Failure with hypoxia Vaping Associated Lung Injury Possible Lipoid pneumonia Moraxella PNA Acute toxic metabolic encephalopathy Chronic Pain disorder Hx CAD s/p PCI Severe EtOH Withdrawal Plan: - Continue HFNC, PNA PCR with moraxella plan for 7 day course (Day 3/7). Switch to Ceftriaxone and stop vanc/zosyn. - Wean HFNC, goal O2 sat >88% - continue precedex. Currently Green slipped without capacity and elevated risk to self and others. - Continue CIWA protocol. - increase phenobarb given severe withdrawal symptoms in addition to current ativan PRN. - will eventually need bronchoscopy however not stable enough at this time. If intubated would pursue. - will verify Methadone dosing with outpatient services. ([facility]) GI Prophylaxis: None DVT Prophylaxis: Lovenox 40 q 24hr - creatinine clearance >30 Disposition: Remain in ICU Status Critical Care Time: 35 minutes Total critical care time caring for this patient with life threatening, unstable organ failure, including direct patient contact, management of life support systems, review of data including imaging and labs, discussions with other team members and physicians, excluding procedures. Nutrition rescreen complete. Pt assigned a level one for nutrition care. Pharmacy Vancomycin Consult Follow-Up Note Non-LIEUTENANT BALLISTICS Patients Current Dosinmg q12hr CREATININE Date Value Ref Range Status 01/31/2023 0.49 (L) 0.66 - 1.25 mg/dL Final 09/25/2021 0.72 0.52 - 1.25 mg/dL Final UREA NITROGEN Date Value Ref Range Status 01/31/2023 27 (H) 9 - 20 mg/dL Final Auto WBC Date Value Ref Range Status 01/31/2023 11.5 (H) 3.6 - 10.7 10*3/uL Final Ht Readings from Last 1 Encounters: 01/30/23 1.778 m (5' 10) Wt Readings from Last 1 Encounters: 01/31/23 95.3 kg (210 lb 1.6 oz) Body mass index is Body mass index is 30.15 kg/m . Random: 24 mcg/ml drawn 01/31 at 0319 Calculated AUC: 545 mg/L.hr Assessment/Plan: Calculated AUC is 545 mg/L.hr., this is within goal range of 400-600. Renal function is stable. Will continue with current dosing regimen of 1500mg q12hr and continue to follow. ICU Progress Note Name: El Smith : 1980(42 y.o.) Date: 01/30/23 Team: MICU Attending: Donnell Subjective: Hospital Summary:HPI: El Smith is a 42M hx alcohol, tobacco, and medical marijuana use (vape pen), COPD, HTN/HLD, chronic pain (alleges gabapentin, methadone use -- [facility]), CAD s/p PCI (2021) who presented to [facility] ED on 01/29 for persistent non-productive cough that has been worsening x3-4 days, causes him to vomit. Symptoms began with sinus pressure. +sick contacts, states his whole family has had a cold for the past week. [id number]-symrojmx SOB. Just recently got a new vape pen 3 days ago. Complains of rib pain, states he's cracked his ribs and manubrium due to coughing and osteopenia. Otherwise, ROS rascon negative -- no fever, chills, rigors, chest pain, hemoptysis, night sweats, abd pain, n/d, unilateral weakness, LE edema. No new rash. Does attest to joint pain and intermittent swelling and heat in his hands and wrists but states his bilateral wrists have carpal tunnel. In the ED he was notably hypoxic and required rapid up-titration of oxygen, placed on NRB. Had lactic acid elevation and leukocytosis. CXR suggestive of possible pneumonia. CTA obtained, negative for PE but did reveal diffuse bilateral GGO and emphysematous changes/fibrosis. He was transferred to [facility] ICU for further management. Interval Events: Patient requiring high doses of benzos, resumed some home medication, and under sedation, elevated risk for progression to respiratory failure, with severe pneumonia, severe hypoxemia, and encephalopathy. Echo was not able to be completed fully due to patient agitated delirium, he frequently gets up, is disoriented, redirectable, becomes agitated, gets out of bed, removes supplemental oxygen frequently, he is requiring high dose anticoagulation.. He is at elevated risk for respiratory failure, and requirement of intubation. Monitoring. Limited echo, with preserved ejection fraction, normal systolic function, RV function reported normal. Green slip. No capacity to leave ama Scheduled Meds:aspirin, 81 mg, Oral, Daily enoxaparin, 40 mg, SubCUTAneous, q24h folic acid 2 mg in dextrose 5 % 50 mL IVPB, 2 mg, IntraVENous, Once gabapentin, 300 mg, Oral, 3 times per day influenza, 0.5 mL, IntraMUSCular, Prior to discharge ipratropium-albuterol, 3 mL, Nebulization, q4h methylPREDNISolone sod suc (PF), 125 mg, IntraVENous, q8h nicotine, 1 patch, TransDERmal, Daily Followed by [START ON 03/13/2023] nicotine, 1 patch, TransDERmal, Daily Followed by [START ON 03/27/2023] nicotine, 1 patch, TransDERmal, Daily pantoprazole, 40 mg, Oral, q AM piperacillin-tazobactam, 3,375 mg, IntraVENous, q8h thiamine, 100 mg, IntraVENous, q24h thiamine, 100 mg, Oral, TID Vancomycin HCl in NS, 1,500 mg, IntraVENous, q12h Continuous Infusions:dexmedeTOMIDine, 0.1-1.5 mcg/kg/hr, Last Rate: 0.6 mcg/kg/hr (01/30/23 09) Objective: Last Vitals: BP MAP 127/80 (01/30/23 1129) 92 (01/30/23 1102) Arterial BP MAP Temp 36.9 C (98.4 F) (01/30/231128) Pulse 80 (01/30/23 112) Resp 25 (01/30/231128) SpO2 97 % (01/30/231128) Weight 90.3 kg (199 lb) (01/30/23 0916) BMI Body mass index is 28.55 kg/m . I/O: 01/29 0700 - 01/30 659 In: 590 [P.O.:200; I.V.:390] Out: - Ventilator: FiO2 (%): [60 %] 60 % FiO2 (%): 60 % Oxygen Delivery: O2 Flow Rate (L/min): 55 L/min Invasive Lines / Tubes / Drains: Peripheral IV 01/29/23 Right Antecubital (Active) Number of days: 0 Peripheral IV 01/30/23 Left Forearm (Active) Number of days: 0 Restraints: NA - patient is not restrained. Wounds: Physical Exam Constitutional: General: He is in acute distress. Appearance: He is ill-appearing. Cardiovascular: Rate and Rhythm: Normal rate. Pulmonary: Effort: No respiratory distress. Breath sounds: Rhonchi and rales present. Abdominal: General: Abdomen is flat. Palpations: Abdomen is soft. Skin: General: Skin is warm. Neurological: Mental Status: He is disoriented. Comments: Intermittenly redirectable, speaking in full sentances. Non compliant with therapy periodically. Removing o2 and getting out of bed frequently. Psychiatric: Comments: Agitated delirium [facility] within last 24 hours- BMP: Recent Labs 01/29/23184501/29/23221201/30/23 0544 NA 139 134* 133* K 3.8 3.3* 3.6 CL 99 98 102 CO2 28 26 31* BUN 13 12 16 CREATININE 0.68 0.63* 0.63* CALCIUM 8.3* 7.7* 8.0* MG -- -- 2.5* PHOS -- -- 2.8 LFTs: Recent Labs 01/29/23184501/29/23221201/30/23 0544 AST 53* 46 39 ALT 21 17 17 PROT 7.6 6.9 6.7 ALBUMIN 3.8 3.6 3.3* BILITOT 0.7 0.5 0.4 ALKPHOS 137* 138* 138* Glucose: Recent Labs 01/29/23184501/29/23221201/30/23 0544 GLUCOSE 101* 164* 171* Procal: Recent Labs 01/29/231845 PROCAL 9.53* CBC: Recent Labs 01/29/23184501/29/23221201/30/23 0544 WBC 16.7* 14.4* 10.4 HGB 13.3 12.1* 12.0* HCT 41.1 37.2* 37.2* PLT 338 338 328 MCV 85.8 84.3 84.5 RDW 17.7* 18.8* 18.9* ABGs: Recent Labs 01/29/23184501/29/232244 PHART -- 7.414 TIO1TVQ -- 42.5 PO2ART -- 61.0* ZAE5WID -- 27.2* SO2ART -- 91.2* A9XZBDIU 2L -- Lactic Acid: Recent Labs 01/29/23185014/23 2213 LACTATE 3.6* 1.5 INR: No results for input(s): INR in the last 72 hours. Cardiac Injury Profile: Recent Labs 01/29/23 1846 01/29/23 2213 01/30/23 0121 TROPONINI <0.012 <0.012 <0.012 Labs in Last 3 months: No results found for: TSH, VITD25, PSA, INR, GLUF Microbiology- Urine Cx: No results found for: URINECX Blood Cx: Lab Results Component Value Date BLOODCX Blood culture incubation started 01/29/2023 BLOODCX Blood culture incubation started 01/29/2023 Sputum Cx: Lab Results Component Value Date RESPCULT Culture in progress 01/30/2023 Gram Stain: Lab Results Component Value Date LABGRAM (A) 01/30/2023 Moderate Polymorphonuclear leukocytes per low power field LABGRAM Few Epithelial cells per low power field (A) 01/30/2023 LABGRAM Rare Gram positive cocci (A) 01/30/2023 LABGRAM Rare Gram negative diplococci (A) 01/30/2023 PNA PCR: Lab Results Component Value Date HUMANMETAPNE Not Detected 01/30/2023 COVID19: No results found for: COVID19 Legionella Ag: Lab Results Component Value Date LEGIONELLAPN Not Detected 01/30/2023 Strep Ag: No results for input(s): STREPPNEUMO in the last 72 hours. Imaging- Reviewed and interpreted independently Rounding Bundle : A2G Bundle Daily goal : sedation, pneumonia tx , supplemental oxygen A- Pain prn control . B - SAT SBT n/a C - choice of sedation precedex gtt, benzo ciwa D - Delirium / CAM ICU +++ E - early mobility - no PT / OT consulted F - Family Involved / Patient Updated discussed with pts mother who reports patient suffers from significant anxiety depression, limited mobility, chronic back pain, bipolar disorder, and multiple other morbidities. Glcyemic control goal 140-180 LDA - Device CVL Fowler Conrad NG /OG Vascath Prophylaxis Nutrition as tolerated Consents prn Admit: 01/29/2023 , ICU 13h Evaluation: bedside Neuro: sedation as above etiology - polysustance use, baseline cog deficits. Acute illness imaging not indicated [x] Encephalopathy with agitated delirium [] Sedation for mechanical ventilation Hemodynamics: stable [] Pressors: none [] Shock , [] Septic , [] Cardiogenic, Hypovolemic [] , other Respiratory: on HHF [x] Respiratory Failure - acute [x], chronic [] , hypoxic [] , hypercapnic [] [] Mechanical ventilation [x] Pneumonia, pulmonary infiltrates Cardiovascular stable [] RRR , [] Atrial fibrillation Abdominal soft Renal status stable [] Acute Renal Failure, oliguric [] , [employer] indications [] [] ESRD on HD Lab Results Component Value Date CREATININE 0.63 (L) 01/30/2023 CREATININE 0.63 (L) 01/29/2023 CREATININE 0.68 01/29/2023 Infectious, source pulmonary , cultures pcr , abx for moraxella Lab Results Component Value Date WBC 10.4 01/30/2023 WBC 14.4 (H) 01/29/2023 WBC 16.7 (H) 01/29/2023 LACTATE 1.5 01/29/2023 LACTATE 3.6 (H) 01/29/2023 LACTATE 1.3 09/16/2022 Endocrine 140-180 , [] glucose at goal MSK Stable Prophylaxis, / Lines / Tubes / Tube Feeds Invasive Lines / Tubes / Drains Peripheral IV 01/29/23 Right Antecubital (Active) Number of days: 0 Peripheral IV 01/30/23 Left Forearm (Active) Number of days: 0 . Assessment and Plan: Principal Problem: Acute hypoxic respiratory failure (HCC) Assessment: Respiratory failure, acute, hypoxic , severe Vaping induced lung injury Possible lipoind pneumonia, unable to bronch at this time Moraxella pneumonia Encephalopathy with delirium and psychosis Chronic pain disorder Hx of cad s/p pci Severe etoh withdrawal Plan: Hhf , wean for fio2 > 88, Analgosedation with ciwa, precedex. Green slip. No capacity. Elevated risk to self/others, increased risk for respiratory failure . E toyin withdrawal protocol Abx ; remains on broad spectrum, if intubated, would req bronch Bp control. Asa. GI Prophylaxis: prn DVT Prophylaxis: Lovenox 40 q 24hr - creatinine clearance >30 Disposition: Remain in ICU Status Critical Care Time: 70 Total critical care time caring for this patient with life threatening, unstable organ failure, including direct patient contact, management of life support systems, review of data including imaging and labs, discussions with other team members and physicians, excluding procedures. documented in this encounter [facility] 02-03-2023 Note Formatting of this n ote is different from the original. Images from the original note were not included. Care Management Progress Note Weaned off oxygen and is 97% on RA. On po prednisone and po augmentin. Methadone being dosed daily. Po ativan x 2 today. Plan to return to [facility] to continue methadone MAT after discharge. Discharge Milestones and Delays Expected Date/Time: 02/04/[address] discharge order Complete med reconciliation Case mgmt discharge readiness Clinical Stability Diagnsotic Workup Expected Discharge History Expected Date/Time Set By Reviewed At 02/04/2023 HOMA Clark 02/03/2023 11:01 AM 02/04/2023 HOMA Clark 02/02/2023 10:32 AM 02/05/2023 Betsy Montalvo MD 02/01/2023 11:40 AM 02/04/2023 HOMA Clark 02/01/2023 10:06 AM 02/03/2023 HOMA Clark 01/31/2023 10:26 AM 02/03/2023 DARA Sutherland CNP 01/29/2023 9:50 PM 02/03/2023 DARA Sutherland CNP 01/29/2023 7:39 PM Length of Stay (Days): 5 GMLOS: No GMLOS Documented . [facility] 02-02-2023 Note Formatting of this n ote is different from the original. Images from the original note were not included. Care Management Progress Note Patient remains on ICU s/p ARF with hypoxia related to vape pen damage. Clinical updates: Mentation is improved today, having normal conversations with staff. Add Med did Cons yesterday, plan for [facility] or [facility]. Discharge plan: Home with outpatient addiction counseling Discharge obstacles: Awaiting clinical stability [facility] will continue to follow. Discharge Milestones and Delays Expected Date/Time: 02/04/[address] discharge order Complete med reconciliation Case mgmt discharge readiness Clinical Stability Diagnsotic Workup Expected Discharge History Expected Date/Time Set By Reviewed At 02/04/2023 HOMA Clark 02/02/2023 10:32 AM 02/05/2023 Betsy Montalvo MD 02/01/2023 11:40 AM 02/04/2023 HOMA Clark 02/01/2023 10:06 AM 02/03/2023 HOMA Clark 01/31/2023 10:26 AM 02/03/2023 DARA Sutherland CNP 01/29/2023 9:50 PM 02/03/2023 Maral Olivarez APRN [employer] 01/29/2023 7:39 PM Length of Stay (Days): 4 GMLOS: No GMLOS Documented T [facility] 02-02-2023 Note Formatting of this n ote might be different from the original. ICU Transfer Checklist Transfer Med Reconciliation (resume home meds if able, convert to PO if able) Complete Antibiotics (name, indication, duration, convert to PO if able) Yes, addressed in today's progress note Steroid (indication, duration, convert to PO if able) Yes, addressed in today's progress note Anticipated [place] Medications (ICU initiated) or Dose Changes and Indication No Permanently Discontinued Home Medications and Reason for medication contraindication No Conrad Catheter (please remove if able. Note: place DC order) No Central Line (please remove if able. Note: place DC order) No Transfer Discussed with: Dr. Trent - [facility] If additional questions for ICU team within 24 hours of ICU transfer, page [phone] for clarifications. [employer] 02-02-2023 Note Formatting of this n ote might be different from the original. Pt transfered out of ICU [employer] Work Phone: 02-01-2023 Consult note Associated Order (s): IP CONSULT TO ADDICTION MEDICINE Images from the original note were not included. ADDICTION MEDICINE CONSULTATION H&P Patient: El Smith Admit Date: 01/29/2023 Primary Care Physician: KAY KERR Reason for Consultation: etoh, chronic opioid, severe pna, acute withdrawal. HISTORY OF PRESENT ILLNESS Chief Complaint Patient presents with Shortness of Breath Cough Shortness of breath, non-productive cough, congestion, weakness x2 days, history of emphysema, daily smoker 2 packs a day; does not wear oxygen at home o2 saturation 69% on room air in triage El Smith is a 42 y.o. year old male with a PMH of polysubstance abuse currently prescribed 125 mg of methadone MAT daily thru the [facility] (confirmed today by Dr. Montalvo), COPD, HTN, HLD, and CAD that was admitted for management of respiratory failure. He initially presented to [place] ED with cough and dyspnea. He was transferred to [place] ICU where he currently remains. Apparently several family members have been sick recently. He has been coughing so much that he was vomiting apparently. He became hypoxic in the ED and placed on NRB. Being treated for PNA that is likely related to a vaping related lung injury per ICU eval. No evidence of PE. He grew increasingly agitated initially. He has been started on high dose steroids, phenobarbital, benzos, and precedex to help with agitation that is also like due to alcohol withdrawal. Respiratory status has improved but he is still requiring supplemental oxygen, and isn't really providing an extensive history regarding his substance use. Documented history of non-compliance with home meds. Dr. Montalvo was able to confirm patient's home methadone dose at 125 mg daily thru the [facility]. Since O2 status is improving and he has been weaned to a nasal cannula, I did order half his normal dose of methadone today (62 mg). If he tolerates well we will increase back to his normal dose tomorrow. No evidence he has relapsed on opioids. On admission, a urine drug screen was positive for methadone , and a serum alcohol level was negative. ETG as ordered by myself and is pending. Of note, patient left AMA from [facility] when admitted for PNA management in September 2022. He left AMA from our detox unit in August 2022. SUBSTANCE USE HISTORY Brief Substance Use Narrative Unable to obtain much of a history from the patient himself presently. He is known to our service and was admitted to our detox unit back in August 2022. But he left AMA before detox was completed. He has said that he is not addicted but a victim of the system and has said he drinks to alleviate pain that medical providers have been unable to assist him with. Pt has limited insight into the severity of his alcohol use and is not interested in [facility] tx at this time. Current Substance Use Alcohol: 10-15 shots of liquor daily per chart review; at other times he said he was drinking 1 L of Fireball Whisky daily Amphetamines: no evidence. Benzos: no evidence. Cocaine: no evidence. Hallucinogens: no evidence. Marijuana: no evidence. Nicotine: daily. Opioids: 125 mg of methadone daily from [facility]. Treatment History Inpatient Rehab: no evidence. Chem Dep IOP: no evidence. Detoxifications: no evidence. 12 Step Meetings: no evidence. Medication Assisted Treatment: methadone thru [facility]. 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 Drug abuse (CMS/HCC) (HCC) Gastroenteritis 11/23/2018 Last Assessment & Plan: Predominantly vomiting; ?food poisoning vs viral gastroenteritis IV hydration PRN antiemetics Hyperlipidemia Hypertension Iritis of left eye 09/20/2018 [facility] (myocardial infarction) (HCC) Opioid dependence, uncomplicated (HCC) 10/27/2021 Presence of stent in right coronary artery 10/02/2021 Sciatica Spinal stenosis, lumbar Tobacco abuse Past Surgical History Past Surgical History: Procedure Laterality Date ARM SURGERY (HISTORICAL) metal rods in adam upper extremities BACK SURGERY COLONOSCOPY CORONARY ANGIOPLASTY WITH STENT PLACEMENT 09/23/2021 DORIS to proximal RCA FRACTURE SURGERY Family History Family History Problem Relation Name Age of Onset Atrial fibrillation Sister Hyperlipidemia Mother Obesity Mother Asthma Mother Depression Mother Obesity Sister Depression Sister Arthritis Mother High Blood Pressure Maternal Grandmother Diabetes Mother Asthma Maternal Grandmother Substance Abuse Sister Diabetes Father Stroke Paternal Grandfather Arthritis Sister High Blood Pressure Mother Vision loss Maternal Grandmother Diabetes Maternal Grandmother Stroke Maternal Grandmother Arthritis Maternal Grandfather Arthritis Maternal Grandmother Cancer Maternal Grandfather Depression Maternal Grandmother Cancer Brother Diabetes Paternal Grandfather Stroke Paternal Grandmother Diabetes Maternal Grandfather Obesity Maternal Grandmother Depression Maternal Grandfather Arthritis Paternal Grandmother Vision loss Maternal Grandfather Depression Paternal Grandmother Arthritis Paternal Grandfather Social Determinants of Health Tobacco Use: High Risk (01/31/2023) Patient History Smoking Tobacco Use: Every Day Smokeless Tobacco Use: Current Passive Exposure: Not on file Alcohol Use: Alcohol Misuse (01/29/2023) AUDIT-C Frequency of Alcohol Consumption: 4 or more times a week Average Number of Drinks: 5 or 6 Frequency of Binge Drinking: Daily or almost daily Financial Resource Strain: Not on file Food Insecurity: Not on file Transportation Needs: No Transportation Needs (09/18/2022) PRAPARE - Transportation Lack of Transportation (Medical): No Lack of Transportation (Non-Medical): No Physical Activity: Not on file Stress: Not on file Social Connections: Not on file Intimate Partner Violence: Not At Risk (09/18/2022) Humiliation, Afraid, Rape, and Kick questionnaire Fear of Current or Ex-Partner: No Emotionally Abused: No Physically Abused: No Sexually Abused: No Depression: Not on file Housing Stability: Low Risk (09/18/2022) Housing Stability Vital Sign Unable to Pay for Housing in the Last Year: No Number of Places Lived in the Last Year: 1 Unstable Housing in the Last Year: No Utilities: Not on file REVIEW OF SYSTEMS Review of Systems Unable to perform ROS: Severe respiratory distress EXAM Vitals Vitals: 02/01/23 1002 02/01/23 1102 02/01/23 1104 02/01/23 1202 BP: (!) 151/111 (!) 168/138 (!) 146/109 (!) 167/112 BP Location: Left arm Patient Position: Sitting Pulse: 96 102 98 86 Resp: 23 21 (!) 39 17 Temp: 36.6 C (97.8 F) TempSrc: Oral SpO2: (!) 89% 90% 92% 94% Weight: Height: Physical Exam Vitals and nursing note reviewed. Constitutional: General: He is awake. He is in acute distress. Appearance: He is ill-appearing. Cardiovascular: Rate and Rhythm: Regular rhythm. Tachycardia present. Pulmonary: Effort: Respiratory distress present. Musculoskeletal: Comments: Deferred Neurological: Mental Status: He is oriented to person, place, and time. Motor: Tremor present. Psychiatric: Attention and Perception: He is inattentive. Behavior: Behavior is uncooperative and agitated. Judgment: Judgment is impulsive and inappropriate. IMAGING Transthoracic echocardiogram (TTE) complete with contrast, bubble, strain, and 3D PRN Result Date: 01/30/2023 Limited echo due to patient non-cooperation. Findings below via limited images. No severe abnormalities noted on this study. Left Ventricle: Left ventricle size is normal. Mildly increased wall thickness. Normal left ventricular systolic function. The EF by visual approximation is 60%. Normal wall motion. Right Ventricle: Not well visualized. Right ventricle size is normal. Normal systolic function visually. XR chest 1 view Result Date: 01/30/2023 Patient Name: EL SMITH : 1980 Exam Date/Time: 01/30/2023 05:16 Procedure: XR CHEST 1 VIEW Ordering Provider: OLIVAREZ ALEXANDER Reason For Exam: respiratory failure Clinical History: respiratory failure Comparison: 01/29/2023 Technique: Single AP radiograph of the chest. Findings: Borderline cardiomegaly. Pulmonary vasculature is mildly indistinct. Patchy consolidation in the lung bases has increased from prior study. No pneumothorax . No displaced rib fractures. Worsening bibasilar consolidation. Report Dictated on Electronically Signed By: Estefani Jarquin DR Electronically Signed Date/Time: 01/30/2023 5:[address] chest angiogram w and/or wo IV contrast Result Date: 01/29/2023 Patient Name: EL SMITH : 1980 [facility]#: [id number] Exam Date/Time: 01/29/2023 20:35 Procedure: CT CHEST ANGIOGRAM W AND/OR WO IV CONTRAST Ordering Provider: QUISPE ANIS Reason For Exam: Pulmonary embolism (PE) suspected, high prob CTA CHEST WITH CONTRAST CLINICAL INDICATION: Chest pain and shortness of breath TECHNIQUE: Axial CT images through the were obtained from the lung apices through the upper abdomen after a bolus tracked intravenous contrast injection over the pulmonary arteries. 75 cc of Isovue 370 contrast was given intravenously. Three-dimensional and surface-shaded reconstructions were performed by myself on a separate workstation at the time of dictation. Dose reduction was employed with automated exposure control. COMPARISON: Chest radiographs earlier the same day. CT abdomen pelvis 04/13/2021. FINDINGS: Limitations: Somewhat limited by motion artifact and suboptimal opacification of the pulmonary arteries. Heart/mediastinum: Heart size is within normal limits. Thoracic aorta and pulmonary trunk are normal in caliber. No filling defects within the pulmonary trunk, pulmonary arteries, and proximal segmental branches. More distal branches are suboptimally evaluated. Scant atherosclerotic calcifications with involvement of the coronary arteries. Multiple prominent and mildly enlarged mediastinal and perihilar lymph nodes. Lungs/pleura: Fairly extensive diffuse groundglass opacities in a basilar subpleural distribution. Borderline bronchiectasis. No pleural effusions or pneumothorax. Central tracheobronchial tree appears patent. Visualized upper abdomen: Punctate hypodensities the liver too small to definitively characterize but present on prior study to some extent. No discrete adrenal mass or nodule. Visualized spleen appears homogeneous. Osseous structures/soft tissues: Mild degenerative spondylosis in the visualized spine with Schmorl's nodes deformities. Slight age indeterminant compression fracture deformity at the approximate T4 level. Suspected fracture deformity involving the manubrium of the sternum. No suspicious axillary adenopathy. 1. Somewhat limited evaluation. No large central pulmonary embolism detected. Peripheral branches not well evaluated. 2. Fairly extensive diffuse groundglass opacities in a basilar subpleural distribution. Findings could be seen in the setting of viral pneumonia such as Covid 19. Pulmonary edema/interstitial edema and other inflammatory etiologies could also be considered. No significant pleural effusions. 3. Mild mediastinal/perihilar adenopathy likely reactive. Report Dictated on Electronically Signed By: Mark Finnegan MD Electronically Signed Date/Time: 01/29/2023 8:39 PM EDT XR chest 1 view Result Date: 01/29/2023 Patient Name: EL SMITH : 1980 Exam Date/Time: 01/29/2023 18:57 Procedure: XR CHEST 1 VIEW Ordering Provider: COLLADO SCOTT Reason For Exam: DYSPNEA INDICATION: 42-year-old. Shortness of breath. VIEWS: Chest portable upright-2 images COMPARISON: 09/18/2022 FINDINGS: The trachea is midline. The cardiac silhouette is mildly enlarged. The lung volumes are low. There is coarsening of interstitium. Bilateral lower lung patchy opacities are present. Cardiac monitoring wires and leads are present. Pulmonary vascular congestion and/or infiltrates. Report Dictated on Electronically Signed By: Chela Cleaning MD Electronically Signed Date/Time: 01/29/2023 7:01 PM EDT LABS Recent Results (from the past 48 hour(s)) Comprehensive metabolic panel Collection Time: 01/31/23 3:19 AM Result Value Ref Range SODIUM 134 (L) 135 - 145 mmol/L POTASSIUM 3.9 3.5 - 5.1 mmol/L CHLORIDE 99 98 - 107 mmol/L CARBON DIOXIDE 33 (H) 22 - 30 mmol/L ANION GAP 2 (L) 3 - 13 mmol/L UREA NITROGEN 27 (H) 9 - 20 mg/dL CREATININE 0.49 (L) 0.66 - 1.25 mg/dL GLUCOSE 164 (H) 70 - 100 mg/dL CALCIUM 8.2 (L) 8.4 - 10.4 mg/dL AST (SGOT) 23 15 - 46 U/L ALT 15 0 - 49 U/L ALKALINE PHOSPHATASE 124 38 - 126 U/L ALBUMIN 3.2 (L) 3.5 - 5.0 g/dL BILIRUBIN, TOTAL 0.3 0.2 - 1.3 mg/dL TOTAL PROTEIN 6.3 6.3 - 8.2 g/dL eGFR >90.0 >60.0 mL/min/1.73m*2 CBC auto differential Collection Time: 01/31/23 3:19 AM Result Value Ref Range Auto WBC 11.5 (H) 3.6 - 10.7 10*3/uL RBC 4.68 4.40 - 5.90 10*6/uL Hemoglobin 12.5 (L) 13.0 - 18.0 g/dL Hematocrit 39.3 (L) 40.0 - 52.0 % MCV 84.0 80.0 - 98.0 fL MCH 26.7 26.0 - 34.0 pg MCHC 31.7 (L) 32.0 - 36.0 % RDW 19.5 (H) 11.5 - 14.5 % Platelets 349 140 - 440 10*3/uL MPV 7.1 (L) 7.4 - 12.4 fL nRBC 0.0 0.0 - 2.0 /100 WBCs Neutrophils Relative 92.3 (H) 40.0 - 80.0 % Lymphocytes Relative 3.6 (L) 20.0 - 40.0 % Monocytes Relative 3.6 2.0 - 10.0 % Eosinophils Relative 0.3 (L) 1.0 - 6.0 % Basophils Relative 0.2 0.0 - 2.0 % Neutrophils Absolute 10.6 (H) 1.8 - 7.0 10*3/uL Lymphocytes Absolute 0.4 (L) 1.0 - 4.3 10*3/uL Monocytes Absolute 0.4 0.0 - 0.8 10*3/uL Eosinophils Absolute 0.0 0.0 - 0.5 10*3/uL Basophils Absolute 0.0 0.0 - 0.2 10*3/uL Vancomycin, random Collection Time: 01/31/23 3:19 AM Result Value Ref Range VANCOMYCIN 24.0 (H) 15.0 - 20.0 ug/mL Magnesium Collection Time: 01/31/23 3:19 AM Result Value Ref Range MAGNESIUM 2.7 (H) 1.6 - 2.3 mg/dL Phosphorus Collection Time: 01/31/23 3:19 AM Result Value Ref Range PHOSPHORUS 2.9 2.5 - 4.5 mg/dL POCT arterial blood gas Collection Time: 01/31/23 9:59 AM Result Value Ref Range pH, Arterial 7.450 7.350 - 7.450 pH pCO2, Arterial 40.8 35.0 - 45.0 mm Hg pO2, Arterial 71.5 (L) 80.0 - 100.0 mm Hg TCO2, Arterial 29.7 (H) 23.0 - 27.0 mmol/L HCO3, Arterial 28.4 (H) 21.0 - 25.0 mmol/L Base Excess, Arterial 4.0 (H) -3.0 - 3.0 mmol/L SO2, Arterial 94.8 (L) 95.0 - 100.0 % FIO2 50 CBC auto differential Collection Time: 02/01/23 5:12 AM Result Value Ref Range Auto WBC 13.9 (H) 3.6 - 10.7 10*3/uL RBC 4.66 4.40 - 5.90 10*6/uL Hemoglobin 12.5 (L) 13.0 - 18.0 g/dL Hematocrit 38.7 (L) 40.0 - 52.0 % MCV 83.1 80.0 - 98.0 fL MCH 26.7 26.0 - 34.0 pg MCHC 32.1 32.0 - 36.0 % RDW 18.9 (H) 11.5 - 14.5 % Platelets 367 140 - 440 10*3/uL MPV 7.0 (L) 7.4 - 12.4 fL nRBC 0.0 0.0 - 2.0 /100 WBCs Neutrophils Relative 93.0 (H) 40.0 - 80.0 % Lymphocytes Relative 3.4 (L) 20.0 - 40.0 % Monocytes Relative 3.3 2.0 - 10.0 % Eosinophils Relative 0.1 (L) 1.0 - 6.0 % Basophils Relative 0.2 0.0 - 2.0 % Neutrophils Absolute 12.9 (H) 1.8 - 7.0 10*3/uL Lymphocytes Absolute 0.5 (L) 1.0 - 4.3 10*3/uL Monocytes Absolute 0.5 0.0 - 0.8 10*3/uL Eosinophils Absolute 0.0 0.0 - 0.5 10*3/uL Basophils Absolute 0.0 0.0 - 0.2 10*3/uL Comprehensive metabolic panel Collection Time: 02/01/23 5:12 AM Result Value Ref Range SODIUM 134 (L) 135 - 145 mmol/L POTASSIUM 4.0 3.5 - 5.1 mmol/L CHLORIDE 100 98 - 107 mmol/L CARBON DIOXIDE 30 22 - 30 mmol/L ANION GAP 4 3 - 13 mmol/L UREA NITROGEN 23 (H) 9 - 20 mg/dL CREATININE 0.47 (L) 0.66 - 1.25 mg/dL GLUCOSE 142 (H) 70 - 100 mg/dL CALCIUM 8.3 (L) 8.4 - 10.4 mg/dL AST (SGOT) 26 15 - 46 U/L ALT 15 0 - 49 U/L ALKALINE PHOSPHATASE 120 38 - 126 U/L ALBUMIN 3.2 (L) 3.5 - 5.0 g/dL BILIRUBIN, TOTAL 0.2 0.2 - 1.3 mg/dL TOTAL PROTEIN 6.5 6.3 - 8.2 g/dL eGFR >90.0 >60.0 mL/min/1.73m*2 Magnesium Collection Time: 02/01/23 5:12 AM Result Value Ref Range MAGNESIUM 2.3 1.6 - 2.3 mg/dL Phosphorus Collection Time: 02/01/23 5:12 AM Result Value Ref Range PHOSPHORUS 3.2 2.5 - 4.5 mg/dL MEDICATIONS Home Meds Current Outpatient Medications Medication Instructions aspirin 81 mg, Oral, Daily carvedilol (Coreg) 12.5 MG tablet No dose, route, or frequency recorded. LISINOPRIL PO Oral methocarbamol (ROBAXIN) 1,000 mg, Oral, Every 8 hours scheduled Ticagrelor (BRILINTA PO) Oral Scheduled Inpatient Meds aspirin, 81 mg, Oral, Daily cefTRIAXone, 2,000 mg, IntraVENous, q24h enoxaparin, 40 mg, SubCUTAneous, q24h gabapentin, 300 mg, Oral, 3 times per day influenza, 0.5 mL, IntraMUSCular, Prior to discharge ipratropium-albuterol, 3 mL, Nebulization, q4h [START ON 02/02/2023] methadone, 125 mg, Oral, Daily methylPREDNISolone sod suc (PF), 125 mg, IntraVENous, q8h nicotine, 1 patch, TransDERmal, Daily Followed by [START ON 03/13/2023] nicotine, 1 patch, TransDERmal, Daily Followed by [START ON 03/27/2023] nicotine, 1 patch, TransDERmal, Daily pantoprazole, 40 mg, Oral, q AM thiamine, 100 mg, Oral, TID PRN Inpatient Meds PRN medications: LORazepam, LORazepam OR LORazepam OR LORazepam OR LORazepam OR LORazepam OR LORazepam OR LORazepam OR LORazepam, ondansetron ODT OR ondansetron, oxyCODONE-acetaminophen, PHENobarbital Continuous Inpatient Infusions dexmedeTOMIDine, 0.1-1.5 mcg/kg/hr, Last Rate: 1.5 mcg/kg/hr (02/01/23 1228) ASSESSMENT & PLAN Severe opioid use disorder on methadone MAT Severe alcohol use disorder Cigarette smoker Counseled patient on biopsychosocial consequences of substance use. Encouraged professional chemical dependency treatment. Encouraged 12 step meeting attendance. SW to finalize an addiction treatment plan before discharge: No plans to stop drinking at this time. He wants to go back to [facility] to continue methadone MAT after discharge. Lacks insight and judgement into the nature of his addiction issues based on past admissions. Alcohol withdrawal Opioid withdrawal Nicotine withdrawal Precedex gtt managed by crit care Phenobarbital 130 mg IV q 6 hours PRN ONLY for agitation Ativan PRN per [facility] protocol for alcohol withdrawal Giving 62 mg of methadone today (half his normal dose) If he tolerates will give full dose tomorrow Consider EKG to monitor QT interval (history of mildly elevated QT interval in past admissions) Nicotine patch Acute respiratory failure (PNA, CLAU) Mgmt per ICU Chronic Pain Methadone restarted Would avoid other opioids if possible Neurontin restarted - he goes to a daily dosing clinic that doesn't have to report gabapentin use to [facility] He has a deep distrust of medical providers based on past admissions and will likely try to leave AMA as soon as he's able to Disposition: Per critical care Will follow. I reviewed the patient's medical record, and reviewed test results. I educated and then counseled the patient on any substance use disorder or chemical dependency related issues. This included a face to face evaluation and physical examination, and coordinating care on a substance use disorder treatment plan as well as documenting clinical information on the day of visit. [facility] [place] 02-01-2023 Consult note Associated Order (s): IP CONSULT TO ADDICTION MEDICINE Images from the original note were not included. ADDICTION MEDICINE CONSULTATION H&P Patient: El Smith Admit Date: 01/29/2023 Primary Care Physician: KAY KERR Reason for Consultation: etoh, chronic opioid, severe pna, acute withdrawal. HISTORY OF PRESENT ILLNESS Chief Complaint Patient presents with Shortness of Breath Cough Shortness of breath, non-productive cough, congestion, weakness x2 days, history of emphysema, daily smoker 2 packs a day; does not wear oxygen at home o2 saturation 69% on room air in triage El Smith is a 42 y.o. year old male with a PMH of polysubstance abuse currently prescribed 125 mg of methadone MAT daily thru the [facility] (confirmed today by Dr. Montalvo), COPD, HTN, HLD, and CAD that was admitted for management of respiratory failure. He initially presented to [place] ED with cough and dyspnea. He was transferred to [place] ICU where he currently remains. Apparently several family members have been sick recently. He has been coughing so much that he was vomiting apparently. He became hypoxic in the ED and placed on NRB. Being treated for PNA that is likely related to a vaping related lung injury per ICU eval. No evidence of PE. He grew increasingly agitated initially. He has been started on high dose steroids, phenobarbital, benzos, and precedex to help with agitation that is also like due to alcohol withdrawal. Respiratory status has improved but he is still requiring supplemental oxygen, and isn't really providing an extensive history regarding his substance use. Documented history of non-compliance with home meds. Dr. Montalvo was able to confirm patient's home methadone dose at 125 mg daily thru the [facility]. Since O2 status is improving and he has been weaned to a nasal cannula, I did order half his normal dose of methadone today (62 mg). If he tolerates well we will increase back to his normal dose tomorrow. No evidence he has relapsed on opioids. On admission, a urine drug screen was positive for methadone , and a serum alcohol level was negative. ETG as ordered by myself and is pending. Of note, patient left AMA from [facility] when admitted for PNA management in September 2022. He left AMA from our detox unit in August 2022. SUBSTANCE USE HISTORY Brief Substance Use Narrative Unable to obtain much of a history from the patient himself presently. He is known to our service and was admitted to our detox unit back in August 2022. But he left AMA before detox was completed. He has said that he is not addicted but a victim of the system and has said he drinks to alleviate pain that medical providers have been unable to assist him with. Pt has limited insight into the severity of his alcohol use and is not interested in [facility] tx at this time. Current Substance Use Alcohol: 10-15 shots of liquor daily per chart review; at other times he said he was drinking 1 L of Fireball Whisky daily Amphetamines: no evidence. Benzos: no evidence. Cocaine: no evidence. Hallucinogens: no evidence. Marijuana: no evidence. Nicotine: daily. Opioids: 125 mg of methadone daily from [facility]. Treatment History Inpatient Rehab: no evidence. Chem Dep IOP: no evidence. Detoxifications: no evidence. 12 Step Meetings: no evidence. Medication Assisted Treatment: methadone thru [facility]. 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 Drug abuse ([facility]/HCC) ([facility]) Gastroenteritis 11/23/2018 Last Assessment & Plan: Predominantly vomiting; ?food poisoning vs viral gastroenteritis IV hydration PRN antiemetics Hyperlipidemia Hypertension Iritis of left eye 09/20/2018 [facility] (myocardial infarction) ([facility]) Opioid dependence, uncomplicated ([facility]) 10/27/2021 Presence of stent in right coronary artery 10/02/2021 Sciatica Spinal stenosis, lumbar Tobacco abuse Past Surgical History Past Surgical History: Procedure Laterality Date ARM SURGERY (HISTORICAL) metal rods in adam upper extremities BACK SURGERY COLONOSCOPY CORONARY ANGIOPLASTY WITH STENT PLACEMENT 09/23/2021 DORIS to proximal RCA FRACTURE SURGERY Family History Family History Problem Relation Name Age of Onset Atrial fibrillation Sister Hyperlipidemia Mother Obesity Mother Asthma Mother Depression Mother Obesity Sister Depression Sister Arthritis Mother High Blood Pressure Maternal Grandmother Diabetes Mother Asthma Maternal Grandmother Substance Abuse Sister Diabetes Father Stroke Paternal Grandfather Arthritis Sister High Blood Pressure Mother Vision loss Maternal Grandmother Diabetes Maternal Grandmother Stroke Maternal Grandmother Arthritis Maternal Grandfather Arthritis Maternal Grandmother Cancer Maternal Grandfather Depression Maternal Grandmother Cancer Brother Diabetes Paternal Grandfather Stroke Paternal Grandmother Diabetes Maternal Grandfather Obesity Maternal Grandmother Depression Maternal Grandfather Arthritis Paternal Grandmother Vision loss Maternal Grandfather Depression Paternal Grandmother Arthritis Paternal Grandfather Social Determinants of Health Tobacco Use: High Risk (01/31/2023) Patient History Smoking Tobacco Use: Every Day Smokeless Tobacco Use: Current Passive Exposure: Not on file Alcohol Use: Alcohol Misuse (01/29/2023) AUDIT-C Frequency of Alcohol Consumption: 4 or more times a week Average Number of Drinks: 5 or 6 Frequency of Binge Drinking: Daily or almost daily Financial Resource Strain: Not on file Food Insecurity: Not on file Transportation Needs: No Transportation Needs (09/18/2022) PRAPARE - Transportation Lack of Transportation (Medical): No Lack of Transportation (Non-Medical): No Physical Activity: Not on file Stress: Not on file Social Connections: Not on file Intimate Partner Violence: Not At Risk (09/18/2022) Humiliation, Afraid, Rape, and Kick questionnaire Fear of Current or Ex-Partner: No Emotionally Abused: No Physically Abused: No Sexually Abused: No Depression: Not on file Housing Stability: Low Risk (09/18/2022) Housing Stability Vital Sign Unable to Pay for Housing in the Last Year: No Number of Places Lived in the Last Year: 1 Unstable Housing in the Last Year: No Utilities: Not on file REVIEW OF SYSTEMS Review of Systems Unable to perform ROS: Severe respiratory distress EXAM Vitals Vitals: 02/01/23 1002 02/01/23 1102 02/01/23 1104 02/01/23 1202 BP: (!) 151/111 (!) 168/138 (!) 146/109 (!) 167/112 BP Location: Left arm Patient Position: Sitting Pulse: 96 102 98 86 Resp: 23 21 (!) 39 17 Temp: 36.6 C (97.8 F) TempSrc: Oral SpO2: (!) 89% 90% 92% 94% Weight: Height: Physical Exam Vitals and nursing note reviewed. Constitutional: General: He is awake. He is in acute distress. Appearance: He is ill-appearing. Cardiovascular: Rate and Rhythm: Regular rhythm. Tachycardia present. Pulmonary: Effort: Respiratory distress present. Musculoskeletal: Comments: Deferred Neurological: Mental Status: He is oriented to person, place, and time. Motor: Tremor present. Psychiatric: Attention and Perception: He is inattentive. Behavior: Behavior is uncooperative and agitated. Judgment: Judgment is impulsive and inappropriate. IMAGING Transthoracic echocardiogram (TTE) complete with contrast, bubble, strain, and 3D PRN Result Date: 01/30/2023 Limited echo due to patient non-cooperation. Findings below via limited images. No severe abnormalities noted on this study. Left Ventricle: Left ventricle size is normal. Mildly increased wall thickness. Normal left ventricular systolic function. The EF by visual approximation is 60%. Normal wall motion. Right Ventricle: Not well visualized. Right ventricle size is normal. Normal systolic function visually. XR chest 1 view Result Date: 01/30/2023 Patient Name: EL SMITH : 1980 [facility]#: [id number] Exam Date/Time: 01/30/2023 05:16 Procedure: XR CHEST 1 VIEW Ordering Provider: OLIVAREZ ALEXANDER Reason For Exam: respiratory failure Clinical History: respiratory failure Comparison: 01/29/2023 Technique: Single AP radiograph of the chest. Findings: Borderline cardiomegaly. Pulmonary vasculature is mildly indistinct. Patchy consolidation in the lung bases has increased from prior study. No pneumothorax . No displaced rib fractures. Worsening bibasilar consolidation. Report Dictated on Electronically Signed By: Estefani Jarquin DR Electronically Signed Date/Time: 01/30/2023 5:[address] chest angiogram w and/or wo IV contrast Result Date: 01/29/2023 Patient Name: EL SMITH : 1980 [facility]#: [id number] Exam Date/Time: 01/29/2023 20:35 Procedure: CT CHEST ANGIOGRAM W AND/OR WO IV CONTRAST Ordering Provider: QUISPE ANIS Reason For Exam: Pulmonary embolism (PE) suspected, high prob CTA CHEST WITH CONTRAST CLINICAL INDICATION: Chest pain and shortness of breath TECHNIQUE: Axial CT images through the were obtained from the lung apices through the upper abdomen after a bolus tracked intravenous contrast injection over the pulmonary arteries. 75 cc of Isovue 370 contrast was given intravenously. Three-dimensional and surface-shaded reconstructions were performed by myself on a separate workstation at the time of dictation. Dose reduction was employed with automated exposure control. COMPARISON: Chest radiographs earlier the same day. CT abdomen pelvis 04/13/2021. FINDINGS: Limitations: Somewhat limited by motion artifact and suboptimal opacification of the pulmonary arteries. Heart/mediastinum: Heart size is within normal limits. Thoracic aorta and pulmonary trunk are normal in caliber. No filling defects within the pulmonary trunk, pulmonary arteries, and proximal segmental branches. More distal branches are suboptimally evaluated. Scant atherosclerotic calcifications with involvement of the coronary arteries. Multiple prominent and mildly enlarged mediastinal and perihilar lymph nodes. Lungs/pleura: Fairly extensive diffuse groundglass opacities in a basilar subpleural distribution. Borderline bronchiectasis. No pleural effusions or pneumothorax. Central tracheobronchial tree appears patent. Visualized upper abdomen: Punctate hypodensities the liver too small to definitively characterize but present on prior study to some extent. No discrete adrenal mass or nodule. Visualized spleen appears homogeneous. Osseous structures/soft tissues: Mild degenerative spondylosis in the visualized spine with Schmorl's nodes deformities. Slight age indeterminant compression fracture deformity at the approximate T4 level. Suspected fracture deformity involving the manubrium of the sternum. No suspicious axillary adenopathy. 1. Somewhat limited evaluation. No large central pulmonary embolism detected. Peripheral branches not well evaluated. 2. Fairly extensive diffuse groundglass opacities in a basilar subpleural distribution. Findings could be seen in the setting of viral pneumonia such as Covid 19. Pulmonary edema/interstitial edema and other inflammatory etiologies could also be considered. No significant pleural effusions. 3. Mild mediastinal/perihilar adenopathy likely reactive. Report Dictated on Electronically Signed By: Mark Finnegan MD Electronically Signed Date/Time: 01/29/2023 8:39 PM EDT XR chest 1 view Result Date: 01/29/2023 [facility] 1980 [id number] Exam Date/Time: 01/29/2023 18:57 Procedure: XR CHEST 1 VIEW Ordering Provider: COLLADO SCOTT Reason For Exam: DYSPNEA INDICATION: 42-year-old. Shortness of breath. VIEWS: Chest portable upright-2 images COMPARISON: 09/18/2022 FINDINGS: The trachea is midline. The cardiac silhouette is mildly enlarged. The lung volumes are low. There is coarsening of interstitium. Bilateral lower lung patchy opacities are present. Cardiac monitoring wires and leads are present. Pulmonary vascular congestion and/or infiltrates. Report Dictated on Electronically Signed By: Chela Cleaning MD Electronically Signed Date/Time: 01/29/2023 7:01 PM EDT LABS Recent Results (from the past 48 hour(s)) Comprehensive metabolic panel Collection Time: 01/31/23 3:19 AM Result Value Ref Range SODIUM 134 (L) 135 - 145 mmol/L POTASSIUM 3.9 3.5 - 5.1 mmol/L CHLORIDE 99 98 - 107 mmol/L CARBON DIOXIDE 33 (H) 22 - 30 mmol/L ANION GAP 2 (L) 3 - 13 mmol/L UREA NITROGEN 27 (H) 9 - 20 mg/dL CREATININE 0.49 (L) 0.66 - 1.25 mg/dL GLUCOSE 164 (H) 70 - 100 mg/dL CALCIUM 8.2 (L) 8.4 - 10.4 mg/dL AST (SGOT) 23 15 - 46 U/L ALT 15 0 - 49 U/L ALKALINE PHOSPHATASE 124 38 - 126 U/L ALBUMIN 3.2 (L) 3.5 - 5.0 g/dL BILIRUBIN, TOTAL 0.3 0.2 - 1.3 mg/dL TOTAL PROTEIN 6.3 6.3 - 8.2 g/dL eGFR >90.0 >60.0 mL/min/1.73m*2 CBC auto differential Collection Time: 01/31/23 3:19 AM Result Value Ref Range Auto WBC 11.5 (H) 3.6 - 10.7 10*3/uL RBC 4.68 4.40 - 5.90 10*6/uL Hemoglobin 12.5 (L) 13.0 - 18.0 g/dL Hematocrit 39.3 (L) 40.0 - 52.0 % MCV 84.0 80.0 - 98.0 fL MCH 26.7 26.0 - 34.0 pg MCHC 31.7 (L) 32.0 - 36.0 % RDW 19.5 (H) 11.5 - 14.5 % Platelets 349 140 - 440 10*3/uL MPV 7.1 (L) 7.4 - 12.4 fL nRBC 0.0 0.0 - 2.0 /100 WBCs Neutrophils Relative 92.3 (H) 40.0 - 80.0 % Lymphocytes Relative 3.6 (L) 20.0 - 40.0 % Monocytes Relative 3.6 2.0 - 10.0 % Eosinophils Relative 0.3 (L) 1.0 - 6.0 % Basophils Relative 0.2 0.0 - 2.0 % Neutrophils Absolute 10.6 (H) 1.8 - 7.0 10*3/uL Lymphocytes Absolute 0.4 (L) 1.0 - 4.3 10*3/uL Monocytes Absolute 0.4 0.0 - 0.8 10*3/uL Eosinophils Absolute 0.0 0.0 - 0.5 10*3/uL Basophils Absolute 0.0 0.0 - 0.2 10*3/uL Vancomycin, random Collection Time: 01/31/23 3:19 AM Result Value Ref Range VANCOMYCIN 24.0 (H) 15.0 - 20.0 ug/mL Magnesium Collection Time: 01/31/23 3:19 AM Result Value Ref Range MAGNESIUM 2.7 (H) 1.6 - 2.3 mg/dL Phosphorus Collection Time: 01/31/23 3:19 AM Result Value Ref Range PHOSPHORUS 2.9 2.5 - 4.5 mg/dL POCT arterial blood gas Collection Time: 01/31/23 9:59 AM Result Value Ref Range pH, Arterial 7.450 7.350 - 7.450 pH pCO2, Arterial 40.8 35.0 - 45.0 mm Hg pO2, Arterial 71.5 (L) 80.0 - 100.0 mm Hg TCO2, Arterial 29.7 (H) 23.0 - 27.0 mmol/L HCO3, Arterial 28.4 (H) 21.0 - 25.0 mmol/L Base Excess, Arterial 4.0 (H) -3.0 - 3.0 mmol/L SO2, Arterial 94.8 (L) 95.0 - 100.0 % FIO2 50 CBC auto differential Collection Time: 02/01/23 5:12 AM Result Value Ref Range Auto WBC 13.9 (H) 3.6 - 10.7 10*3/uL RBC 4.66 4.40 - 5.90 10*6/uL Hemoglobin 12.5 (L) 13.0 - 18.0 g/dL Hematocrit 38.7 (L) 40.0 - 52.0 % MCV 83.1 80.0 - 98.0 fL MCH 26.7 26.0 - 34.0 pg MCHC 32.1 32.0 - 36.0 % RDW 18.9 (H) 11.5 - 14.5 % Platelets 367 140 - 440 10*3/uL MPV 7.0 (L) 7.4 - 12.4 fL nRBC 0.0 0.0 - 2.0 /100 WBCs Neutrophils Relative 93.0 (H) 40.0 - 80.0 % Lymphocytes Relative 3.4 (L) 20.0 - 40.0 % Monocytes Relative 3.3 2.0 - 10.0 % Eosinophils Relative 0.1 (L) 1.0 - 6.0 % Basophils Relative 0.2 0.0 - 2.0 % Neutrophils Absolute 12.9 (H) 1.8 - 7.0 10*3/uL Lymphocytes Absolute 0.5 (L) 1.0 - 4.3 10*3/uL Monocytes Absolute 0.5 0.0 - 0.8 10*3/uL Eosinophils Absolute 0.0 0.0 - 0.5 10*3/uL Basophils Absolute 0.0 0.0 - 0.2 10*3/uL Comprehensive metabolic panel Collection Time: 02/01/23 5:12 AM Result Value Ref Range SODIUM 134 (L) 135 - 145 mmol/L POTASSIUM 4.0 3.5 - 5.1 mmol/L CHLORIDE 100 98 - 107 mmol/L CARBON DIOXIDE 30 22 - 30 mmol/L ANION GAP 4 3 - 13 mmol/L UREA NITROGEN 23 (H) 9 - 20 mg/dL CREATININE 0.47 (L) 0.66 - 1.25 mg/dL GLUCOSE 142 (H) 70 - 100 mg/dL CALCIUM 8.3 (L) 8.4 - 10.4 mg/dL AST (SGOT) 26 15 - 46 U/L ALT 15 0 - 49 U/L ALKALINE PHOSPHATASE 120 38 - 126 U/L ALBUMIN 3.2 (L) 3.5 - 5.0 g/dL BILIRUBIN, TOTAL 0.2 0.2 - 1.3 mg/dL TOTAL PROTEIN 6.5 6.3 - 8.2 g/dL eGFR >90.0 >60.0 mL/min/1.73m*2 Magnesium Collection Time: 02/01/23 5:12 AM Result Value Ref Range MAGNESIUM 2.3 1.6 - 2.3 mg/dL Phosphorus Collection Time: 02/01/23 5:12 AM Result Value Ref Range PHOSPHORUS 3.2 2.5 - 4.5 mg/dL MEDICATIONS Home Meds Current Outpatient Medications Medication Instructions aspirin 81 mg, Oral, Daily carvedilol (Coreg) 12.5 MG tablet No dose, route, or frequency recorded. LISINOPRIL PO Oral methocarbamol (ROBAXIN) 1,000 mg, Oral, Every 8 hours scheduled Ticagrelor (BRILINTA PO) Oral Scheduled Inpatient Meds aspirin, 81 mg, Oral, Daily cefTRIAXone, 2,000 mg, IntraVENous, q24h enoxaparin, 40 mg, SubCUTAneous, q24h gabapentin, 300 mg, Oral, 3 times per day influenza, 0.5 mL, IntraMUSCular, Prior to discharge ipratropium-albuterol, 3 mL, Nebulization, q4h [START ON 02/02/2023] methadone, 125 mg, Oral, Daily methylPREDNISolone sod suc (PF), 125 mg, IntraVENous, q8h nicotine, 1 patch, TransDERmal, Daily Followed by [START ON 03/13/2023] nicotine, 1 patch, TransDERmal, Daily Followed by [START ON 03/27/2023] nicotine, 1 patch, TransDERmal, Daily pantoprazole, 40 mg, Oral, q AM thiamine, 100 mg, Oral, TID PRN Inpatient Meds PRN medications: LORazepam, LORazepam OR LORazepam OR LORazepam OR LORazepam OR LORazepam OR LORazepam OR LORazepam OR LORazepam, ondansetron ODT OR ondansetron, oxyCODONE-acetaminophen, PHENobarbital Continuous Inpatient Infusions dexmedeTOMIDine, 0.1-1.5 mcg/kg/hr, Last Rate: 1.5 mcg/kg/hr (02/01/23 1228) ASSESSMENT & PLAN Severe opioid use disorder on methadone MAT Severe alcohol use disorder Cigarette smoker Counseled patient on biopsychosocial consequences of substance use. Encouraged professional chemical dependency treatment. Encouraged 12 step meeting attendance. SW to finalize an addiction treatment plan before discharge: No plans to stop drinking at this time. He wants to go back to [facility] to continue methadone MAT after discharge. Lacks insight and judgement into the nature of his addiction issues based on past admissions. Alcohol withdrawal Opioid withdrawal Nicotine withdrawal Precedex gtt managed by crit care Phenobarbital 130 mg IV q 6 hours PRN ONLY for agitation Ativan PRN per [facility] protocol for alcohol withdrawal Giving 62 mg of methadone today (half his normal dose) If he tolerates will give full dose tomorrow Consider EKG to monitor QT interval (history of mildly elevated QT interval in past admissions) Nicotine patch Acute respiratory failure (PNA, CLAU) Mgmt per ICU Chronic Pain Methadone restarted Would avoid other opioids if possible Neurontin restarted - he goes to a daily dosing clinic that doesn't have to report gabapentin use to [facility] He has a deep distrust of medical providers based on past admissions and will likely try to leave AMA as soon as he's able to Disposition: Per critical care Will follow. I reviewed the patient's medical record, and reviewed test results. I educated and then counseled the patient on any substance use disorder or chemical dependency related issues. This included a face to face evaluation and physical examination, and coordinating care on a substance use disorder treatment plan as well as documenting clinical information on the day of visit. Consult acknowledged. Full H&P to follow Recommend holding methadone dose for now as he is in acute respiratory failure. It does not seem methadone dose has been confirmed by his provider either. Continue precedex and ativan prn for alcohol withdrawal. Vancomycin therapy has been discontinued by Dr. Montalvo on 01-31-23. Thank you for the consult. Pharmacy signing off for vancomycin dosing. Subha Burleson RP, Date: 01/31/23 Time: 12:11 PM Pharmacy Managed Vancomycin Dosing Service Consult Note Consult Date: 01/30/23 Consulted By: Maral Olivarez Room:[facility]/222[facility] A Patient Name: El Smith Allergies: Nickel Age: 42 y.o. Sex: male Ht: Height: 177.8 cm (5' 10) TBW: Weight: 90.3 kg (199 lb) BMI: Body mass index is 28.55 kg/m . Calculated CrCl: 125 mL/min Lab Results Component Value Date CREATININE 0.63 (L) 01/29/2023 CREATININE 0.68 01/29/2023 CREATININE 0.40 (L) 09/19/2022 BUN 12 01/29/2023 BUN 13 01/29/2023 BUN 15 09/19/2022 WBC 14.4 (H) 01/29/2023 WBC 16.7 (H) 01/29/2023 WBC 7.1 09/19/2022 Trough: No results found for: VANCOTROUGH Random: No results found for: VANCORANDOM Infectious Diagnosis: Pneumonia (CAP), Pneumonia (HAP) (goal AUC = 400-600 mg/L*h) Antimicrobials: Patient recently received an antibiotic (last 12 hours) Date/Time Action Medication Dose Rate 01/29/232044 New Bag azithromycin (Zithromax) 500 mg in sodium chloride 0.9 % 250 mL IVPB (ADD-[place]) 500 mg 01/29/231941 New Bag cefTRIAXone (Rocephin) 1,000 mg in sodium chloride 0.9 % 50 mL IVPB Mini-Bag Plus 1,000 mg 100 mL/hr Assessment/Plan: Start Vancomycin 1500 mg Q 12 hours based on patient age, weight, renal function, and infectious diagnosis (predicted AUC of 549 mg/L*h). Will assess random level with morning labs on 01/31 and adjust as appropriate. Will follow renal function closely. Thank you for this consult. Please page/call with questions. Date: 01/30/23 Time: 12:16 AM Name: Carmelita Serrano RPh, PharmD Pager: Phone: [phone] documented in this encounter [facility] 01-31-2023 Consult note Formatting of th is note might be different from the original. Consult acknowledged. Full H&P to follow Recommend holding methadone dose for now as he is in acute respiratory failure. It does not seem methadone dose has been confirmed by his provider either. Continue precedex and ativan prn for alcohol withdrawal. [facility] 01-31-2023 Note Formatting of this n ote might be different from the original. Care Managment Initial Assessment Date: 01/31/2023 Patient Name: El Smith : 1980 Patient Information Source of Information: Patient Spring Tacker Name/Contact Information: Charis Novak via telephone Cognition/Language: Unable to Assess Permission given to speak with patient pharmaceutical representative/caregiver as indicated: Yes Confirmation of Payer with patient/family: Yes Payer Name: [facility] : No Confirmation of Primary Care Physician: Confirmed PCP Name: Dr Kay Kerr Seen in last 2 years?: Yes Primary Caregiver: Self If assistance needed, confirmed caregiver ready, willing and able to care for patient at discharge: Yes Confirmed with: Chhaya and sister Louise are able to assist at DC Living Arrangements Current Residence: House Number of Floors 3 Number of Entry Steps: 1 Bed/Bath Levels: Both first floor Facility: Facility Name: Plan to Return: Lives with: Parent Support Systems: Parent, Family members, Friends/neighbors Activities of Daily Living Ambulation: Independent Bathing/Dressing: Independent Elimination/Continence/Toileting: Independent Feeding: Independent Who Assists with Activities of Daily Living: Instrumental Activities of Daily Living Prescription Coverage: Yes Pharmacy Used: [facility] in [place] Medication Management: Independent Transportation/Shopping: Independent Transportation Mode: Car Needs Assistance with Transportation at Discharge: No (Chhaya is able to transport home) Meal Preparation: Assistance Provider Meal Prep Assistance Provider Name: Chhaya Laundry/Cleaning: Assistance Provider Laundry/Cleaning Assistance Provider Name: Chhaya Finances/Bill Paying: Assistance Provider Finances/Bill Payer Assistance Provider Name: Chhaya Communication: Independent Types of Care Services/Equipment Utilized Care Services: Dialysis Type: Durable Medical Equipment: DME Provider: No DME Patient's Goal/Discharge Plan Patient expects to be discharged to: TBD based on status and mentality Discharge Planning Actions: Continue to follow Patient's Choice Rights and [employer] and Collaborative Relationships Disclosed as Indicated for Post-Acute Care: Interdisciplinary Team Engagement: PT/OT Social Work Referral for: Additional Information: IA completed with mother over the phone. Introduced self and role. Patient is admitted to ICU for vape pen induced respiratory failure and AMS. Was green slipped through the night for agitation, sitter was discontinued this AM Patient lives with Chhaya, she is able to transport patient home. Sees Dr Kay Kerr (PCP) routinely. Has insurance and prescription coverage, uses [facility] in [place]. Chhaya denies any financial difficulties. DCP TBD based on mental and health status. TCC will continue to monitor. Patient verbalizes understanding and is in agreement with POC. Sandee Moreland RN [facility] 01-31-2023 Consult note Formatting of th is note might be different from the original. Vancomycin therapy has been discontinued by Dr. Montalvo on 01-31-23. Thank you for the consult. Pharmacy signing off for vancomycin dosing. Subha Burleson [facility], Date: 01/31/23 Time: 12:11 PM [facility] [place] 01-30-2023 Nurse Note Patient switched to green slip per Dr. Tolentino, murtazater discontinued. Patient sedated with stable vitals, will monitor [facility] 01-30-2023 Nurse Note Patient switched to green slip per Dr. Tolentino, maggy discontinued. Patient sedated with stable vitals, will monitor Sitter at bedside for yellow slip Continues agitation and delusions/hallucinations. Medicated, Dr. Tolentino placed medical hold. Highly agitated, cursing and getting out of bed, ripped off oxygen. RN and Dr. Tolentino at bedside. Medicated, will monitor Bed alarm going off, patient out of bed agitated, oxygen off with 02 sats 86 to 88%, RN able to redirect back to bed, oxygen reapplied. Will medicate and monitor Out of bed, agitiated, walked to commode, reorientation attempted. Dr. Jacobo at bedside. Bed alarm going off, patient attempting to get out of bed to go home. Able to be redirected. Will monitor documented in this encounter [facility] [place] 01-30-2023 Nurse Note Sitter at bedside for yellow slip [facility] 01-30-2023 Nurse Note Continues agitation and delusions/hallucinations. Medicated, Dr. Tolentino placed medical hold. T [facility] 01-30-2023 Nurse Note Highly agitated, cursing and getting out of bed, ripped off oxygen. RN and Dr. Tolentino at bedside. Medicated, will monitor T [facility] 01-30-2023 Nurse Note Bed alarm going off, patient out of bed agitated, oxygen off with 02 sats 86 to 88%, RN able to redirect back to bed, oxygen reapplied. Will medicate and monitor T [facility] 01-30-2023 Nurse Note Out of bed, agitiated, walked to commode, reorientation attempted. Dr. Jacobo at bedside. T [facility] 01-30-2023 Plan of care note Pt intermittently agitated. Currently redirectable. Unable to complete full cardiac eval due to patients mental status fluctuation. Abruptly rushes to the restroom, removes leads , iv's , oxygen. Intermittently removing HHF o2. Pt without capacity to understand risk benefit. On phenobarb and ciwa. Pt cannot leave AMA. Does not have decision making capacity at this time. Pt is at elevated risk of intubation / respiratory failure in setting of severe pneumonia, high o2 requirements on HHF, hyperactive delirium, withdrawal, non compliance with therapy. [facility] 01-30-2023 Nurse Note Bed alarm going off, patient attempting to get out of bed to go home. Able to be redirected. Will monitor T [facility] 01-30-2023 Consult note Formatting of th is note is different from the original. Pharmacy Managed Vancomycin Dosing Service Consult Note Consult Date: 01/30/23 Consulted By: Maral Olivarez Room:[id number] A Patient Name: El Smith Allergies: Nickel Age: 42 y.o. Sex: male Ht: Height: 177.8 cm (5' 10) TBW: Weight: 90.3 kg (199 lb) BMI: Body mass index is 28.55 kg/m . Calculated CrCl: 125 mL/min Lab Results Component Value Date CREATININE 0.63 (L) 01/29/2023 CREATININE 0.68 01/29/2023 CREATININE 0.40 (L) 09/19/2022 BUN 12 01/29/2023 BUN 13 01/29/2023 BUN 15 09/19/2022 WBC 14.4 (H) 01/29/2023 WBC 16.7 (H) 01/29/2023 WBC 7.1 09/19/2022 Trough: No results found for: VANCOTROUGH Random: No results found for: VANCORANDOM Infectious Diagnosis: Pneumonia (CAP), Pneumonia (HAP) (goal AUC = 400-600 mg/L*h) Antimicrobials: Patient recently received an antibiotic (last 12 hours) Date/Time Action Medication Dose Rate 01/29/232044 New Bag azithromycin (Zithromax) 500 mg in sodium chloride 0.9 % 250 mL IVPB (ADD-[place]) 500 mg 01/29/231941 New Bag cefTRIAXone (Rocephin) 1,000 mg in sodium chloride 0.9 % 50 mL IVPB Mini-Bag Plus 1,000 mg 100 mL/hr Assessment/Plan: Start Vancomycin 1500 mg Q 12 hours based on patient age, weight, renal function, and infectious diagnosis (predicted AUC of 549 mg/L*h). Will assess random level with morning labs on 01/31 and adjust as appropriate. Will follow renal function closely. Thank you for this consult. Please page/call with questions. Date: 01/30/23 Time: 12:16 AM Name: Carmelita Serrano RPh, PharmD Pager: Phone: [phone] [facility] 01-29-2023 Note NOTE: This result is for medical treatment only. Analysis performed using non-forensic procedures. [facility] 01-29-2023 History and physical note Images from the original note were not included. Critical Care Initial Visit Note CC: Chief Complaint Patient presents with Shortness of Breath Cough Shortness of breath, non-productive cough, congestion, weakness x2 days, history of emphysema, daily smoker 2 packs a day; does not wear oxygen at home o2 saturation 69% on room air in triage HPI: El Smith is a 42M hx alcohol, tobacco, and medical marijuana use (vape pen), COPD, HTN/HLD, chronic pain (alleges gabapentin, methadone use -- [facility]), CAD s/p PCI (2021) who presented to [facility] ED on 01/29 for persistent non-productive cough that has been worsening x3-4 days, causes him to vomit. Symptoms began with sinus pressure. +sick contacts, states his whole family has had a cold for the past week. [id number] SOB. Just recently got a new vape pen 3 days ago. Complains of rib pain, states he's cracked his ribs and manubrium due to coughing and osteopenia. Otherwise, ROS rascon negative -- no fever, chills, rigors, chest pain, hemoptysis, night sweats, abd pain, n/d, unilateral weakness, LE edema. No new rash. Does attest to joint pain and intermittent swelling and heat in his hands and wrists but states his bilateral wrists have carpal tunnel. In the ED he was notably hypoxic and required rapid up-titration of oxygen, placed on NRB. Had lactic acid elevation and leukocytosis. CXR suggestive of possible pneumonia. CTA obtained, negative for PE but did reveal diffuse bilateral GGO and emphysematous changes/fibrosis. He was transferred to [facility] ICU for further management. 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 Drug abuse ([facility]) ([facility]) Gastroenteritis 11/23/2018 Last Assessment & Plan: Predominantly vomiting; ?food poisoning vs viral gastroenteritis IV hydration PRN antiemetics Hyperlipidemia Hypertension Iritis of left eye 09/20/2018 [facility] (myocardial infarction) ([facility]) Opioid dependence, uncomplicated ([facility]) 10/27/2021 Presence of stent in right coronary artery 10/02/2021 Sciatica Spinal stenosis, lumbar Tobacco abuse FH: family history includes Arthritis in his maternal grandfather, maternal grandmother, mother, paternal grandfather, paternal grandmother, and sister; Asthma in his maternal grandmother and mother; Atrial fibrillation in his sister; Cancer in his brother and maternal grandfather; Depression in his maternal grandfather, maternal grandmother, mother, paternal grandmother, and sister; Diabetes in his father, maternal grandfather, maternal grandmother, mother, and paternal grandfather; High Blood Pressure in his maternal grandmother and mother; Hyperlipidemia in his mother; Obesity in his maternal grandmother, mother, and sister; Stroke in his maternal grandmother, paternal grandfather, and paternal grandmother; Substance Abuse in his sister; Vision loss in his maternal grandfather and maternal grandmother. SH: Social History Socioeconomic History Marital status: Single Spouse name: Not on file Number of children: Not on file Years of education: Not on file Highest education level: Not on file Occupational History Not on file Tobacco Use Smoking status: Every Day Packs/day: 2 Types: Cigarettes Smokeless tobacco: Current Vaping Use Vaping Use: Never used Substance and Sexual Activity Alcohol use: Yes Comment: 15 shots of whiskey Drug use: Yes Types: Marijuana Comment: uses methadone, also buys pain meds on the streets Sexual activity: Not on file Other Topics Concern Not on file Social History Narrative Not on file Social Determinants of Health Financial Resource Strain: Not on file Food Insecurity: Not on file Transportation Needs: No Transportation Needs (09/18/2022) PRAPARE - Transportation Lack of Transportation (Medical): No Lack of Transportation (Non-Medical): No Physical Activity: Not on file Stress: Not on file Social Connections: Not on file Intimate Partner Violence: Not At Risk (09/18/2022) Humiliation, Afraid, Rape, and Kick questionnaire Fear of Current or Ex-Partner: No Emotionally Abused: No Physically Abused: No Sexually Abused: No Housing Stability: Low Risk (09/18/2022) Housing Stability Vital Sign Unable to Pay for Housing in the Last Year: No Number of Places Lived in the Last Year: 1 Unstable Housing in the Last Year: No ROS: Completed per HPI. ROS was completed and is otherwise negative. Objective Findings: Vitals: BP 127/82 Pulse 102 Temp 37.4 C (99.4 F) (Oral) Resp 16 Ht 1.778 m (5' 10) Wt 90.3 kg (199 lb) SpO2 96% BMI 28.55 kg/m No intake or output data in the 24 hours ending 01/29/23 1820 EXAM: PHYSICAL EXAM: General Appearance: []No acute distress []Obese []Cachectic []Thin [x]ill Skin: Temperature [x]Warm []Cool Rash []Yes [x]No Tattoo(s) [x]Yes []No HEENT: Pupils round and react [x]Yes []No Sclera []Icteric [x]Non-Icteric Conjunctiva [x]Normal []Pale Pinnae [x]Normal []Other Dentition [x][place] Teeth []Dentures []Edentulous Oral Mucosa [x][place] []Moist [x]Dry Oral ETT []Present [x]Absent Neck: Supple [x]Yes []No Thyromegaly []Yes [x]No Crepitus []Present [x]Absent Jvd []Present [x]Absent Lungs: []Clear [x]Crackles [x]Wheezes []Rhonchi Respiratory effort [x]Labored []Non-Labored Equal chest rise [x]Yes []No Trachea midline [x]Yes []No 60%/60L HFNC Heart: Rate [x]Regular []Irregular [x]Tachycardia []Bradycardia Rhythm [x]Sinus []Irregular Murmur []Present [x]Absent Capillary Refill [x]<2 sec []>2 sec Peripheral Pulses [x]Strong []Weak []Absent Abdomen: [x]Soft Bowel Sounds []Present []Absent []Tender [x]Non-Tender []Distended [x]Non-distended Hernia []Present [x]Absent Organomegaly []Present [x]Absent Mass []Present [x]Absent Extremities: Cyanosis []Present [x]Absent CADENA ([x]RUE [x]RLE [x]LUE [x]LLE) Clubbing []Yes [x]No Edema []Yes [x]No Neurologic: Alert [x]yes []no Oriented []x0 []x1 []x2 [x]x3 [place] []Yes [x]No Follows Commands [x]Yes []No []Unresponsive to verbal [x]Cranial nerves grossly intact [x]Sensation grossly intact No focal deficits Psych: Affect []Normal []Flat []Agitated [x]Anxious []Calm []Sedated []NAD Hallucinations []Yes [x]No Medications: Scheduled Meds: [START ON 01/30/2023] aspirin, 81 mg, Oral, Daily [START ON 01/30/2023] azithromycin, 500 mg, IntraVENous, q24h [START ON 01/30/2023] cefTRIAXone, 1,000 mg, IntraVENous, q24h [START ON 01/30/2023] enoxaparin, 40 mg, SubCUTAneous, q24h [START ON 01/30/2023] folic acid, 1 mg, Oral, Daily [START ON 01/30/2023] influenza, 0.5 mL, IntraMUSCular, Prior to discharge ipratropium-albuterol, , , ipratropium-albuterol, 3 mL, Nebulization, q4h [START ON 01/30/2023] nicotine, 1 patch, TransDERmal, Daily Followed by [START ON 03/13/2023] nicotine, 1 patch, TransDERmal, Daily Followed by [START ON 03/27/2023] nicotine, 1 patch, TransDERmal, Daily [START ON 01/30/2023] pantoprazole, 40 mg, Oral, q AM thiamine, 100 mg, Oral, TID PRN Meds: PRN medications: ipratropium-albuterol, ondansetron ODT OR ondansetron Results: CBC: Recent Labs 01/29/23 1846 01/29/23 2213 WBC 16.7* 14.4* HGB 13.3 12.1* HCT 41.1 37.2* MCV 85.8 84.3 PLT 338 338 BMP: Recent Labs 01/29/23 184 NA 139 K 3.8 CL 99 CO2 28 BUN 13 CREATININE 0.68 LIVER PROFILE: Recent Labs 01/29/23 1846 AST 53* ALT 21 BILITOT 0.7 ALKPHOS 137* Diagnostics: 01/29 CXR: FINDINGS: The trachea is midline. The cardiac silhouette is mildly enlarged. The lung volumes are low. There is coarsening of interstitium. Bilateral lower lung patchy opacities are present. Cardiac monitoring wires and leads are present. IMPRESSION: Pulmonary vascular congestion and/or infiltrates. 01/29 CTA Chest FINDINGS: Limitations: Somewhat limited by motion artifact and suboptimal opacification of the pulmonary arteries. Heart/mediastinum: Heart size is within normal limits. Thoracic aorta and pulmonary trunk are normal in caliber. No filling defects within the pulmonary trunk, pulmonary arteries, and proximal segmental branches. More distal branches are suboptimally evaluated. Scant atherosclerotic calcifications with involvement of the coronary arteries. Multiple prominent and mildly enlarged mediastinal and perihilar lymph nodes. Lungs/pleura: Fairly extensive diffuse groundglass opacities in a basilar subpleural distribution. Borderline bronchiectasis. No pleural effusions or pneumothorax. Central tracheobronchial tree appears patent. Visualized upper abdomen: Punctate hypodensities the liver too small to definitively characterize but present on prior study to some extent. No discrete adrenal mass or nodule. Visualized spleen appears homogeneous. Osseous structures/soft tissues: Mild degenerative spondylosis in the visualized spine with Schmorl's nodes deformities. Slight age indeterminant compression fracture deformity at the approximate T4 level. Suspected fracture deformity involving the manubrium of the sternum. No suspicious axillary adenopathy. IMPRESSION: 1. Somewhat limited evaluation. No large central pulmonary embolism detected. Peripheral branches not well evaluated. 2. Fairly extensive diffuse groundglass opacities in a basilar subpleural distribution. Findings could be seen in the setting of viral pneumonia such as Covid 19. Pulmonary edema/interstitial edema and other inflammatory etiologies could also be considered. No significant pleural effusions. 3. Mild mediastinal/perihilar adenopathy likely reactive. 09/2021 Echo: SUMMARY: 1. Left ventricle: There is mild concentric hypertrophy. Systolic function is at the lower limits of normal by visual assessment. The estimated ejection fraction is 50%. 2. Regional wall motion abnormality: Severe hypokinesis of the entire inferior myocardium. 3. Right ventricle: The cavity size is normal. Systolic function is normal. 4. No significant valve disease. Assessment: Acute hypoxic respiratory failure Interstitial edema/pneumonitis Chronic pulmonary emphysematous and fibrotic changes, possible AECOPD Leukocytosis, possible sepsis Hx CAD s/p PCI, HTN/HLD Hypokalemia Chronic pain, anxiety, depression Polysubstance abuse Plan: -AHRF -- broad differential including infection, NSIP, ILD, vape-induced lung injury -HFNC 60%/60L, high risk for further decompensation -BD, steroids, antibiotics with CTX/Azithro -Sputum culture, PNA PCR, procal, UAg -CRP, ESR, ESTER, ANCA, RF, HP panel -- if positive will send off remainder of battery to evaluate for autoimmune workup -Lactate normalized -- SIRS due to viral infection, lower suspicion for bacterial infection based on HPI and exam -PCI >1 year ago -- no longer taking brilinta -- ASA ordered -Chronic pain -- follows with [facility] -- states he takes gabapentin, no sign of this in PDMP -Have yet to verify dosing of methadone -- will need to call clinic Tuesday morning when they open -Check ethanol level, UDS -Thiamine, folate, CIWA -- prn ativan for anxiety -FEN: ok for diet, replace K -Prophylaxis: PPI, SCDs, lovenox Code Status: Full Critical care time spent reviewing labs/films, examining patient, collaborating with other physicians but excluding procedures for life threatening organ failure is 60 minutes. MAYA Linares Critical Care Plan of care discussed with Dr Austin Carson. [facility] 01-29-2023 History and physical note Images from the original note were not included. Critical Care Initial Visit Note CC: Chief Complaint Patient presents with Shortness of Breath Cough Shortness of breath, non-productive cough, congestion, weakness x2 days, history of emphysema, daily smoker 2 packs a day; does not wear oxygen at home o2 saturation 69% on room air in triage HPI: El Smith is a 42M hx alcohol, tobacco, and medical marijuana use (vape pen), COPD, HTN/HLD, chronic pain (alleges gabapentin, methadone use -- [facility]), CAD s/p PCI (2021) who presented to [facility] ED on 01/29 for persistent non-productive cough that has been worsening x3-4 days, causes him to vomit. Symptoms began with sinus pressure. +sick contacts, states his whole family has had a cold for the past week. Ixoa-zl-crssfmap SOB. Just recently got a new vape pen 3 days ago. Complains of rib pain, states he's cracked his ribs and manubrium due to coughing and osteopenia. Otherwise, ROS rascon negative -- no fever, chills, rigors, chest pain, hemoptysis, night sweats, abd pain, n/d, unilateral weakness, LE edema. No new rash. Does attest to joint pain and intermittent swelling and heat in his hands and wrists but states his bilateral wrists have carpal tunnel. In the ED he was notably hypoxic and required rapid up-titration of oxygen, placed on NRB. Had lactic acid elevation and leukocytosis. CXR suggestive of possible pneumonia. CTA obtained, negative for PE but did reveal diffuse bilateral GGO and emphysematous changes/fibrosis. He was transferred to [facility] ICU for further management. 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 Drug abuse ([facility]/HCC) ([facility]) Gastroenteritis 11/23/2018 Last Assessment & Plan: Predominantly vomiting; ?food poisoning vs viral gastroenteritis IV hydration PRN antiemetics Hyperlipidemia Hypertension Iritis of left eye 09/20/2018 [facility] ([facility]) Opioid dependence, uncomplicated ([facility]) 10/27/2021 Presence of stent in right coronary artery 10/02/2021 Sciatica Spinal stenosis, lumbar Tobacco abuse FH: family history includes Arthritis in his maternal grandfather, maternal grandmother, mother, paternal grandfather, paternal grandmother, and sister; Asthma in his maternal grandmother and mother; Atrial fibrillation in his sister; Cancer in his brother and maternal grandfather; Depression in his maternal grandfather, maternal grandmother, mother, paternal grandmother, and sister; Diabetes in his father, maternal grandfather, maternal grandmother, mother, and paternal grandfather; High Blood Pressure in his maternal grandmother and mother; Hyperlipidemia in his mother; Obesity in his maternal grandmother, mother, and sister; Stroke in his maternal grandmother, paternal grandfather, and paternal grandmother; Substance Abuse in his sister; Vision loss in his maternal grandfather and maternal grandmother. SH: Social History Socioeconomic History Marital status: Single Spouse name: Not on file Number of children: Not on file Years of education: Not on file Highest education level: Not on file Occupational History Not on file Tobacco Use Smoking status: Every Day Packs/day: 2 Types: Cigarettes Smokeless tobacco: Current Vaping Use Vaping Use: Never used Substance and Sexual Activity Alcohol use: Yes Comment: 15 shots of whiskey Drug use: Yes Types: Marijuana Comment: uses methadone, also buys pain meds on the streets Sexual activity: Not on file Other Topics Concern Not on file Social History Narrative Not on file Social Determinants of Health Financial Resource Strain: Not on file Food Insecurity: Not on file Transportation Needs: No Transportation Needs (09/18/2022) PRAPARE - Transportation Lack of Transportation (Medical): No Lack of Transportation (Non-Medical): No Physical Activity: Not on file Stress: Not on file Social Connections: Not on file Intimate Partner Violence: Not At Risk (09/18/2022) Humiliation, Afraid, Rape, and Kick questionnaire Fear of Current or Ex-Partner: No Emotionally Abused: No Physically Abused: No Sexually Abused: No Housing Stability: Low Risk (09/18/2022) Housing Stability Vital Sign Unable to Pay for Housing in the Last Year: No Number of Places Lived in the Last Year: 1 Unstable Housing in the Last Year: No ROS: Completed per HPI. ROS was completed and is otherwise negative. Objective Findings: Vitals: BP 127/82 Pulse 102 Temp 37.4 C (99.4 F) (Oral) Resp 16 Ht 1.778 m (5' 10) Wt 90.3 kg (199 lb) SpO2 96% BMI 28.55 kg/m No intake or output data in the 24 hours ending 01/29/23 9954 EXAM: PHYSICAL EXAM: General Appearance: []No acute distress []Obese []Cachectic []Thin [x]ill Skin: Temperature [x]Warm []Cool Rash []Yes [x]No Tattoo(s) [x]Yes []No HEENT: Pupils round and react [x]Yes []No Sclera []Icteric [x]Non-Icteric Conjunctiva [x]Normal []Pale Pinnae [x]Normal []Other Dentition [x][place] Teeth []Dentures []Edentulous Oral Mucosa [x][place] []Moist [x]Dry Oral ETT []Present [x]Absent Neck: Supple [x]Yes []No Thyromegaly []Yes [x]No Crepitus []Present [x]Absent Jvd []Present [x]Absent Lungs: []Clear [x]Crackles [x]Wheezes []Rhonchi Respiratory effort [x]Labored []Non-Labored Equal chest rise [x]Yes []No Trachea midline [x]Yes []No 60%/60L HFNC Heart: Rate [x]Regular []Irregular [x]Tachycardia []Bradycardia Rhythm [x]Sinus []Irregular Murmur []Present [x]Absent Capillary Refill [x]<2 sec []>2 sec Peripheral Pulses [x]Strong []Weak []Absent Abdomen: [x]Soft Bowel Sounds []Present []Absent []Tender [x]Non-Tender []Distended [x]Non-distended Hernia []Present [x]Absent Organomegaly []Present [x]Absent Mass []Present [x]Absent Extremities: Cyanosis []Present [x]Absent CADENA ([x]RUE [x]RLE [x]LUE [x]LLE) Clubbing []Yes [x]No Edema []Yes [x]No Neurologic: Alert [x]yes []no Oriented []x0 []x1 []x2 [x]x3 [place] []Yes [x]No Follows Commands [x]Yes []No []Unresponsive to verbal [x]Cranial nerves grossly intact [x]Sensation grossly intact No focal deficits Psych: Affect []Normal []Flat []Agitated [x]Anxious []Calm []Sedated []NAD Hallucinations []Yes [x]No Medications: Scheduled Meds: [START ON 01/30/2023] aspirin, 81 mg, Oral, Daily [START ON 01/30/2023] azithromycin, 500 mg, IntraVENous, q24h [START ON 01/30/2023] cefTRIAXone, 1,000 mg, IntraVENous, q24h [START ON 01/30/2023] enoxaparin, 40 mg, SubCUTAneous, q24h [START ON 01/30/2023] folic acid, 1 mg, Oral, Daily [START ON 01/30/2023] influenza, 0.5 mL, IntraMUSCular, Prior to discharge ipratropium-albuterol, , , ipratropium-albuterol, 3 mL, Nebulization, q4h [START ON 01/30/2023] nicotine, 1 patch, TransDERmal, Daily Followed by [START ON 03/13/2023] nicotine, 1 patch, TransDERmal, Daily Followed by [START ON 03/27/2023] nicotine, 1 patch, TransDERmal, Daily [START ON 01/30/2023] pantoprazole, 40 mg, Oral, q AM thiamine, 100 mg, Oral, TID PRN Meds: PRN medications: ipratropium-albuterol, ondansetron ODT OR ondansetron Results: CBC: Recent Labs 01/29/23 1846 01/29/23 2213 WBC 16.7* 14.4* HGB 13.3 12.1* HCT 41.1 37.2* MCV 85.8 84.3 PLT 338 338 BMP: Recent Labs 01/29/23 1846 NA 139 K 3.8 CL 99 CO2 28 BUN 13 CREATININE 0.68 LIVER PROFILE: Recent Labs 01/29/23 1846 AST 53* ALT 21 BILITOT 0.7 ALKPHOS 137* Diagnostics: 01/29 CXR: FINDINGS: The trachea is midline. The cardiac silhouette is mildly enlarged. The lung volumes are low. There is coarsening of interstitium. Bilateral lower lung patchy opacities are present. Cardiac monitoring wires and leads are present. IMPRESSION: Pulmonary vascular congestion and/or infiltrates. 01/29 CTA Chest FINDINGS: Limitations: Somewhat limited by motion artifact and suboptimal opacification of the pulmonary arteries. Heart/mediastinum: Heart size is within normal limits. Thoracic aorta and pulmonary trunk are normal in caliber. No filling defects within the pulmonary trunk, pulmonary arteries, and proximal segmental branches. More distal branches are suboptimally evaluated. Scant atherosclerotic calcifications with involvement of the coronary arteries. Multiple prominent and mildly enlarged mediastinal and perihilar lymph nodes. Lungs/pleura: Fairly extensive diffuse groundglass opacities in a basilar subpleural distribution. Borderline bronchiectasis. No pleural effusions or pneumothorax. Central tracheobronchial tree appears patent. Visualized upper abdomen: Punctate hypodensities the liver too small to definitively characterize but present on prior study to some extent. No discrete adrenal mass or nodule. Visualized spleen appears homogeneous. Osseous structures/soft tissues: Mild degenerative spondylosis in the visualized spine with Schmorl's nodes deformities. Slight age indeterminant compression fracture deformity at the approximate T4 level. Suspected fracture deformity involving the manubrium of the sternum. No suspicious axillary adenopathy. IMPRESSION: 1. Somewhat limited evaluation. No large central pulmonary embolism detected. Peripheral branches not well evaluated. 2. Fairly extensive diffuse groundglass opacities in a basilar subpleural distribution. Findings could be seen in the setting of viral pneumonia such as Covid 19. Pulmonary edema/interstitial edema and other inflammatory etiologies could also be considered. No significant pleural effusions. 3. Mild mediastinal/perihilar adenopathy likely reactive. 09/2021 Echo: SUMMARY: 1. Left ventricle: There is mild concentric hypertrophy. Systolic function is at the lower limits of normal by visual assessment. The estimated ejection fraction is 50%. 2. Regional wall motion abnormality: Severe hypokinesis of the entire inferior myocardium. 3. Right ventricle: The cavity size is normal. Systolic function is normal. 4. No significant valve disease. Assessment: Acute hypoxic respiratory failure Interstitial edema/pneumonitis Chronic pulmonary emphysematous and fibrotic changes, possible AECOPD Leukocytosis, possible sepsis Hx CAD s/p PCI, HTN/HLD Hypokalemia Chronic pain, anxiety, depression Polysubstance abuse Plan: -AHRF -- broad differential including infection, NSIP, ILD, vape-induced lung injury -HFNC 60%/60L, high risk for further decompensation -BD, steroids, antibiotics with CTX/Azithro -Sputum culture, PNA PCR, procal, UAg -CRP, ESR, ESTER, ANCA, RF, HP panel -- if positive will send off remainder of battery to evaluate for autoimmune workup -Lactate normalized -- SIRS due to viral infection, lower suspicion for bacterial infection based on HPI and exam -PCI >1 year ago -- no longer taking brilinta -- ASA ordered -Chronic pain -- follows with [facility] -- states he takes gabapentin, no sign of this in PDMP -Have yet to verify dosing of methadone -- will need to call clinic Tuesday morning when they open -Check ethanol level, UDS -Thiamine, folate, CIWA -- prn ativan for anxiety -FEN: ok for diet, replace K -Prophylaxis: PPI, SCDs, lovenox Code Status: Full Critical care time spent reviewing labs/films, examining patient, collaborating with other physicians but excluding procedures for life threatening organ failure is 60 minutes. MAYA Linares Critical Care Plan of care discussed with Dr Austin Carson. documented in this encounter [facility] [place] 01-29-2023 Emergency department Note Report given to [facility] ICU. Pt is currently being transported to [facility] ICU. Upon leaving pt SpO2 was high 90's. Pt left on non-rebreather and Zithromax infusing @ transfer. Caitlin Wise RN 01/29/232133 [facility] [place] 01-29-2023 Emergency department Note Report given to [facility] ICU. Pt is currently being transported to [facility] ICU. Upon leaving pt SpO2 was high 90's. Pt left on non-rebreather and Zithromax infusing @ transfer. Caitlin Wise RN 01/29/232133 Placed call to [facility] spoke with Peewee. First Peewee asks if pt can go off the stakes player for transfer. Informed Peewee that with pt going to ICU he needs stakes player. Peewee gives ETA of 0400. He states there are no other companies with availability tonight but if we can get it outsourced we will let you know and if we can get there sooner we will. Melani Fraire RN 01/29/231955 Received call from [facility] with Cale from [facility] ICU, call transferred to Dr. Quispe. Melani Fraire RN 01/29/231934 EMERGENCY DEPARTMENT ENCOUNTER Pt Name: El Smith Birthdate 1980 Date of evaluation: 01/29/2023 ED Provider: Giovani Collado MD CHIEF COMPLAINT No chief complaint on file. HISTORY OF PRESENT ILLNESS (Location/Symptom, Timing/Onset, Context/Setting, Quality, Duration, Modifying Factors, Severity) Note limiting factors. I wore appropriate PPE for the entirety of this encounter. HPI El Smith is a 42 y.o. who presents to the emergency department chief complaint of shortness of breath. Patient states he has felt unwell for the last couple days with nasal congestion, sore throat, cough. Patient reports smoking and having a history of COPD, emphysema. He denies any previous oxygen requirements. He denies chest pain. He denies history of DVT or PE. Patient has a history of known coronary artery disease with cardiac stents placed in September of last year. Nursing Notes were reviewed. REVIEW OF SYSTEMS Review of Systems Constitutional: Positive for fatigue. HENT: Positive for sore throat. Respiratory: Positive for cough and shortness of breath. Cardiovascular: Negative for chest pain. Gastrointestinal: Negative for abdominal pain and nausea. Musculoskeletal: Positive for myalgias. Pertinent positives and negatives as per [facility] 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 Drug abuse ([facility]) ([facility]) Gastroenteritis 11/23/2018 Last Assessment & Plan: Predominantly vomiting; ?food poisoning vs viral gastroenteritis IV hydration PRN antiemetics Hyperlipidemia Hypertension Iritis of left eye 09/20/2018 [facility] ([facility]) ([facility]) Opioid dependence, uncomplicated ([facility]) 10/27/2021 Presence of stent in right coronary artery 10/02/2021 Sciatica Spinal stenosis, lumbar Tobacco abuse SURGICAL HISTORY Past Surgical History: Procedure Laterality Date ARM SURGERY (HISTORICAL) metal rods in adam upper extremities BACK SURGERY COLONOSCOPY CORONARY ANGIOPLASTY WITH STENT PLACEMENT 09/23/2021 DORIS to proximal RCA FRACTURE SURGERY CURRENT MEDICATIONS Previous Medications ASPIRIN 81 MG EC TABLET Take 81 mg by mouth in the morning. CARVEDILOL (COREG) 12.5 MG TABLET LIDOCAINE (LIDODERM) 5 % PATCH Apply 1 patch topically daily. Remove & discard patch within 12 hours or as directed by MD. LISINOPRIL PO Take by mouth. METHADONE HCL PO Take by mouth. METHOCARBAMOL (ROBAXIN) 500 MG TABLET Take 2 tablets (1,000 mg) by mouth in the morning and 2 tablets (1,000 mg) at noon and 2 tablets (1,000 mg) before bedtime. Do all this for 10 days. TICAGRELOR (BRILINTA PO) Take by mouth. ALLERGIES Nickel FAMILY HISTORY Family History Problem Relation Name Age of Onset Atrial fibrillation Sister Hyperlipidemia Mother Obesity Mother Asthma Mother Depression Mother Obesity Sister Depression Sister Arthritis Mother High Blood Pressure Maternal Grandmother Diabetes Mother Asthma Maternal Grandmother Substance Abuse Sister Diabetes Father Stroke Paternal Grandfather Arthritis Sister High Blood Pressure Mother Vision loss Maternal Grandmother Diabetes Maternal Grandmother Stroke Maternal Grandmother Arthritis Maternal Grandfather Arthritis Maternal Grandmother Cancer Maternal Grandfather Depression Maternal Grandmother Cancer Brother Diabetes Paternal Grandfather Stroke Paternal Grandmother Diabetes Maternal Grandfather Obesity Maternal Grandmother Depression Maternal Grandfather Arthritis Paternal Grandmother Vision loss Maternal Grandfather Depression Paternal Grandmother Arthritis Paternal Grandfather SOCIAL HISTORY Social History Socioeconomic History Marital status: Single Tobacco Use Smoking status: Every Day Packs/day: 2 Types: Cigarettes Smokeless tobacco: Current Vaping Use Vaping Use: Never used Substance and Sexual Activity Alcohol use: Yes Comment: 15 shots of whiskey Drug use: Yes Types: Marijuana Comment: uses methadone, also buys pain meds on the streets Social Determinants of Health Transportation Needs: No Transportation Needs (09/18/2022) PRAPARE - Transportation Lack of Transportation (Medical): No Lack of Transportation (Non-Medical): No Intimate Partner Violence: Not At Risk (09/18/2022) Humiliation, Afraid, Rape, and Kick questionnaire Fear of Current or Ex-Partner: No Emotionally Abused: No Physically Abused: No Sexually Abused: No Housing Stability: Low Risk (09/18/2022) Housing Stability Vital Sign Unable to Pay for Housing in the Last Year: No Number of Places Lived in the Last Year: 1 Unstable Housing in the Last Year: No SCREENINGS PHYSICAL EXAM ED Triage Vitals Temp Pulse Resp BP -- -- -- -- SpO2 Temp src Heart Rate Source Patient Position -- -- -- -- BP Location FiO2 (%) -- -- Physical Exam Vitals and nursing note reviewed. Constitutional: Appearance: He is not toxic-appearing or diaphoretic. Comments: 42-year-old male that appears older than stated age. Able to talk in full sentences. Hypoxic to 60% on room air. HENT: Head: Normocephalic and atraumatic. Mouth/Throat: Mouth: Mucous membranes are moist. Pharynx: Oropharynx is clear. Eyes: Extraocular Movements: Extraocular movements intact. Pupils: Pupils are equal, round, and reactive to light. Cardiovascular: Rate and Rhythm: Regular rhythm. Tachycardia present. Comments: Symmetric radial pulses Pulmonary: Comments: Diminished lung sounds throughout Abdominal: Palpations: Abdomen is soft. Tenderness: There is no abdominal tenderness. Musculoskeletal: Cervical back: Normal range of motion. Comments: Lower extremities no calf tenderness Neurological: General: No focal deficit present. Mental Status: He is alert. DIAGNOSTIC RESULTS RADIOLOGY (Per Emergency Physician): Interpretation per the Radiologist below, if available at the time of this note: XR chest 1 view (Results Pending) LABS: Labs Reviewed SARS-COV-2, FLU A/B, AND RSV COMBO NT PRO BNP TROPONIN I COMPREHENSIVE METABOLIC PANEL CBC WITH AUTO DIFFERENTIAL All other labs were within normal range or not returned as of this dictation. EMERGENCY DEPARTMENT COURSE and DIFFERENTIAL DIAGNOSIS/MDM: Vitals: There were no vitals filed for this visit. Medications methylPREDNISolone sodium succinate (PF) (SOLU-Medrol) injection 125 mg (has no administration in time range) ipratropium-albuterol (Duo-Neb) 0.5-2.5 mg/3 mL nebulizer solution 6 mL (has no administration in time range) Evaluated for shortness of breath with upper respiratory infection symptoms. Patient is hypoxic on room air with good waveform. Patient has diminished lung sounds throughout. Patient is a smoker with reported history of emphysema, COPD. Patient treated with Solu-Medrol, DuoNeb aerosol. Obtaining EKG, blood work, chest x-ray. 1900 I have signed out El Smith's Emergency Department care to Dr. Quispe. We discussed the pertinent history, physical exam, completed/pending test results (if applicable) and current treatment plan. Please refer to his/her chart for the patients remaining Emergency Department course and final disposition. PROCEDURES: Unless otherwise noted below, none Procedures FINAL IMPRESSION 1. Acute hypoxic respiratory failure (HCC) DISPOSITION PATIENT REFERRED TO: No follow-up provider specified. DISCHARGE MEDICATIONS: New Prescriptions No medications on file (Comment: Please note this report has been produced using speech recognition software and may contain errors related to that system including errors in grammar, punctuation, and spelling, as well as words and phrases that may be inappropriate. If there are any questions or concerns please feel free to contact the dictating provider for clarification.) Giovani Collado MD (electronically signed) Emergency Medicine Provider Giovani Collado MD 01/30/23 0649 I received signout from Dr. Collado at 7 PM. Patient presents with shortness of breath. He is hypoxic. Possible viral illness, COVID. Work-up is pending. Disposition pending work-up. I assessed the patient at approximately 7:05 PM. He appears older than his age. He describes shortness of breath and fatigue. He is on nasal cannula and receiving a DuoNeb and his O2 sat on 4 L is in the mid 80s. I talked to him about how his work-up is still pending, and I advised him that he would need hospitalization due to his hypoxia. He cut me off saying that there is no way he is going to be admitted to a hospital and that family members have oxygen at home and he will go home and use that. I then explained to him how he is significantly hypoxic and that coming off the supplemental oxygen would lead to organ damage, permanent disability and/or and that there would be no way he could appropriately monitor his oxygen saturation at home or ensure that he is delivering sufficient oxygen. I also explained to him that even patients who are on supplemental oxygen if they have a new oxygen requirement this is an indication for them to be admitted. Patient expressed an understanding of this and still demanded to be discharged. He is willing to wait until his work-up comes back because he says that he is only here to understand what is going on. He says that if he gets worse he will come back and will be ready to be admitted at that time. ED Course as of 01/29/232053 Sat Jan 29, 2023 184 Patient is talking in full sentences. He is hypoxic but does not appear in distress. Patient placed on 6 L nasal cannula with improvement to 90% oxygen saturation on his hand [SP] 1914 I reviewed the chest x-ray noting diffuse pulmonary infiltrates consistent with pulmonary edema or infection [AK] 2043 I reviewed the CTA of the chest showing no large PE, diffuse groundglass opacities could be seen in the setting of viral pneumonia such as COVID-19. [AK] ED Course User Index [AK] Julian Quispe MD [SP] Giovani Collado MD Diagnoses as of 01/29/232053 Acute hypoxic respiratory failure (HCC) Patient has a leukocytosis of 16.7. He has no anemia. A VBG had been obtained showing normal PCO2 and PO2. Lactate 3.6. Patient then requested to leave and I spoke with him once more. I explained the chest x-ray findings, and I explained my suspicion that this represented a viral or bacterial pneumonia. I explained that if his COVID swab comes back negative, I would consider this bacterial and start him on IV antibiotics. I also explained that in that case, he would meet criteria for severe sepsis. He then angrily waved his hand and said okay admit me. As he is now requiring nonrebreather, we will admit to the ICU. His preference is [place] ICU. COVID/RSV/Flu negative. I spoke with Cale Olivarez CNP with ICU at [place] who accepts patient for transfer, requests CTA chest to rule out PE. Patient asked for something for anxiety and was given ativan IV. Total critical care time today provided was at least 30 minutes. This excludes seperately billable procedure. Critical care time provided for evaluation of the patient, ordering laboratory/imaging studies, review of the medical record, initiation of IV medications in the emergency department, discussion of the patient with ICU, frequent re-evaluation of the patient after initiation of treatment in the emergency department with high probability of clinical decompensation if above measures were not enacted. Julian Quispe MD 01/29/23 7888 Pt placed on 35% nenti-mask for SPO2 84-87% on 6L nc. Pt instructed to cough and deep breathe. Pt admits to refusing hospital admission. Pt states I don't like hospitals and I have anxiety. Pt advised we could give pt something for anxiety and comfort. Pt still refuses. Pt states If I get worse I will come back, I just came here to find out what is wrong with me. Pt in CT. SPO2 remains in the 90's on non-rebreather. Pt remains anxious after [facility] [place] [facility]. Pt sinus tach on monitor documented in this encounter [facility] [place] 01-29-2023 Note 1. Somewhat limited evaluation. No large central pulmonary embolism detected. Peripheral branches not well evaluated. 2. Fairly extensive diffuse groundglass opacities in a basilar subpleural distribution. Findings could be seen in the setting of viral pneumonia such as Covid 19. Pulmonary edema/interstitial edema and other inflammatory etiologies could also be considered. No significant pleural effusions. 3. Mild mediastinal/perihilar adenopathy likely reactive. Report Dictated on Electronically Signed By: Mark Finnegan MD Electronically Signed Date/Time: 01/29/2023 8:39 PM EDT [facility] [employer] [facility] 01-29-2023 Emergency department Note Placed call to [facility] spoke with Pee[facility]e. First Peewee asks if pt can go off the stakes player for transfer. Informed Peewee that with pt going to ICU he needs stakes player. Peewee gives ETA of 0400. He states there are no other companies with availability tonight but if we can get it outsourced we will let you know and if we can get there sooner we will. Melani Fraire RN 01/29/231955 [facility] [place] 01-29-2023 Emergency department Note Received call from [facility] with Cale from [facility] ICU, call transferred to Dr. Quispe. Melani Fraire RN 01/29/231934 [facility] 01-29-2023 Emergency department Triage note Pt placed on 35% nenti-mask for SPO2 84-87% on 6L nc. Pt instructed to cough and deep breathe. Pt admits to refusing hospital admission. Pt states I don't like hospitals and I have anxiety. Pt advised we could give pt something for anxiety and comfort. Pt still refuses. Pt states If I get worse I will come back, I just came here to find out what is wrong with me. [facility] 01-29-2023 Emergency department Triage note Pt in CT. SPO2 remains in the 90's on non-rebreather. Pt remains anxious after ativan IVP. [facility] critical care transport [place] transport [place], [place] 2109. Pt sinus tach on monitor [facility] 01-29-2023 Physician Emergency department Note EMERGENCY DEPARTMENT ENCOUNTER Pt Name: El Smith Birthdate 1980 Date of evaluation: 01/29/2023 ED Provider: Giovani Collado MD CHIEF COMPLAINT No chief complaint on file. HISTORY OF PRESENT ILLNESS (Location/Symptom, Timing/Onset, Context/Setting, Quality, Duration, Modifying Factors, Severity) Note limiting factors. I wore appropriate PPE for the entirety of this encounter. HPI El Smith is a 42 y.o. who presents to the emergency department chief complaint of shortness of breath. Patient states he has felt unwell for the last couple days with nasal congestion, sore throat, cough. Patient reports smoking and having a history of COPD, emphysema. He denies any previous oxygen requirements. He denies chest pain. He denies history of DVT or PE. Patient has a history of known coronary artery disease with cardiac stents placed in September of last year. Nursing Notes were reviewed. REVIEW OF SYSTEMS Review of Systems Constitutional: Positive for fatigue. HENT: Positive for sore throat. Respiratory: Positive for cough and shortness of breath. Cardiovascular: Negative for chest pain. Gastrointestinal: Negative for abdominal pain and nausea. Musculoskeletal: Positive for myalgias. 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 Drug abuse ([facility]) ([facility]) Gastroenteritis 11/23/2018 Last Assessment & Plan: Predominantly vomiting; ?food poisoning vs viral gastroenteritis IV hydration PRN antiemetics Hyperlipidemia Hypertension Iritis of left eye 09/20/2018 [facility] (myocardial infarction) ([facility]) ([facility]) Opioid dependence, uncomplicated ([facility]) 10/27/2021 Presence of stent in right coronary artery 10/02/2021 Sciatica Spinal stenosis, lumbar Tobacco abuse SURGICAL HISTORY Past Surgical History: Procedure Laterality Date ARM SURGERY (HISTORICAL) metal rods in adam upper extremities BACK SURGERY COLONOSCOPY CORONARY ANGIOPLASTY WITH STENT PLACEMENT 09/23/2021 DORIS to proximal RCA FRACTURE SURGERY CURRENT MEDICATIONS Previous Medications ASPIRIN 81 MG EC TABLET Take 81 mg by mouth in the morning. CARVEDILOL (COREG) 12.5 MG TABLET LIDOCAINE (LIDODERM) 5 % PATCH Apply 1 patch topically daily. Remove & discard patch within 12 hours or as directed by MD. LISINOPRIL PO Take by mouth. METHADONE HCL PO Take by mouth. METHOCARBAMOL (ROBAXIN) 500 MG TABLET Take 2 tablets (1,000 mg) by mouth in the morning and 2 tablets (1,000 mg) at noon and 2 tablets (1,000 mg) before bedtime. Do all this for 10 days. TICAGRELOR (BRILINTA PO) Take by mouth. ALLERGIES Nickel FAMILY HISTORY Family History Problem Relation Name Age of Onset Atrial fibrillation Sister Hyperlipidemia Mother Obesity Mother Asthma Mother Depression Mother Obesity Sister Depression Sister Arthritis Mother High Blood Pressure Maternal Grandmother Diabetes Mother Asthma Maternal Grandmother Substance Abuse Sister Diabetes Father Stroke Paternal Grandfather Arthritis Sister High Blood Pressure Mother Vision loss Maternal Grandmother Diabetes Maternal Grandmother Stroke Maternal Grandmother Arthritis Maternal Grandfather Arthritis Maternal Grandmother Cancer Maternal Grandfather Depression Maternal Grandmother Cancer Brother Diabetes Paternal Grandfather Stroke Paternal Grandmother Diabetes Maternal Grandfather Obesity Maternal Grandmother Depression Maternal Grandfather Arthritis Paternal Grandmother Vision loss Maternal Grandfather Depression Paternal Grandmother Arthritis Paternal Grandfather SOCIAL HISTORY Social History Socioeconomic History Marital status: Single Tobacco Use Smoking status: Every Day Packs/day: 2 Types: Cigarettes Smokeless tobacco: Current Vaping Use Vaping Use: Never used Substance and Sexual Activity Alcohol use: Yes Comment: 15 shots of whiskey Drug use: Yes Types: Marijuana Comment: uses methadone, also buys pain meds on the streets Social Determinants of Health Transportation Needs: No Transportation Needs (09/18/2022) PRAPARE - Transportation Lack of Transportation (Medical): No Lack of Transportation (Non-Medical): No Intimate Partner Violence: Not At Risk (09/18/2022) Humiliation, Afraid, Rape, and Kick questionnaire Fear of Current or Ex-Partner: No Emotionally Abused: No Physically Abused: No Sexually Abused: No Housing Stability: Low Risk (09/18/2022) Housing Stability Vital Sign Unable to Pay for Housing in the Last Year: No Number of Places Lived in the Last Year: 1 Unstable Housing in the Last Year: No SCREENINGS PHYSICAL EXAM ED Triage Vitals Temp Pulse Resp BP -- -- -- -- SpO2 Temp src Heart Rate Source Patient Position -- -- -- -- BP Location FiO2 (%) -- -- Physical Exam Vitals and nursing note reviewed. Constitutional: Appearance: He is not toxic-appearing or diaphoretic. Comments: 42-year-old male that appears older than stated age. Able to talk in full sentences. Hypoxic to 60% on room air. HENT: Head: Normocephalic and atraumatic. Mouth/Throat: Mouth: Mucous membranes are moist. Pharynx: Oropharynx is clear. Eyes: Extraocular Movements: Extraocular movements intact. Pupils: Pupils are equal, round, and reactive to light. Cardiovascular: Rate and Rhythm: Regular rhythm. Tachycardia present. Comments: Symmetric radial pulses Pulmonary: Comments: Diminished lung sounds throughout Abdominal: Palpations: Abdomen is soft. Tenderness: There is no abdominal tenderness. Musculoskeletal: Cervical back: Normal range of motion. Comments: Lower extremities no calf tenderness Neurological: General: No focal deficit present. Mental Status: He is alert. DIAGNOSTIC RESULTS RADIOLOGY (Per Emergency Physician): Interpretation per the Radiologist below, if available at the time of this note: XR chest 1 view (Results Pending) LABS: Labs Reviewed SARS-COV-2, FLU A/B, AND RSV COMBO NT PRO BNP TROPONIN I COMPREHENSIVE METABOLIC PANEL CBC WITH AUTO DIFFERENTIAL All other labs were within normal range or not returned as of this dictation. EMERGENCY DEPARTMENT COURSE and DIFFERENTIAL DIAGNOSIS/MDM: Vitals: There were no vitals filed for this visit. Medications methylPREDNISolone sodium succinate (PF) (SOLU-Medrol) injection 125 mg (has no administration in time range) ipratropium-albuterol (Duo-Neb) 0.5-2.5 mg/3 mL nebulizer solution 6 mL (has no administration in time range) Evaluated for shortness of breath with upper respiratory infection symptoms. Patient is hypoxic on room air with good waveform. Patient has diminished lung sounds throughout. Patient is a smoker with reported history of emphysema, COPD. Patient treated with Solu-Medrol, DuoNeb aerosol. Obtaining EKG, blood work, chest x-ray. 1899 I have signed out El Smith's Emergency Department care to Dr. Quispe. We discussed the pertinent history, physical exam, completed/pending test results (if applicable) and current treatment plan. Please refer to his/her chart for the patients remaining Emergency Department course and final disposition. PROCEDURES: Unless otherwise noted below, none Procedures FINAL IMPRESSION 1. Acute hypoxic respiratory failure (HCC) DISPOSITION PATIENT REFERRED TO: No follow-up provider specified. DISCHARGE MEDICATIONS: New Prescriptions No medications on file (Comment: Please note this report has been produced using speech recognition software and may contain errors related to that system including errors in grammar, punctuation, and spelling, as well as words and phrases that may be inappropriate. If there are any questions or concerns please feel free to contact the dictating provider for clarification.) Giovani Collado MD (electronically signed) Emergency Medicine Provider Giovani Collado MD 01/30/23 0649 T [facility] [place] 01-29-2023 Physician Emergency department Note I received signout from Dr. Collado at 7 PM. Patient presents with shortness of breath. He is hypoxic. Possible viral illness, COVID. Work-up is pending. Disposition pending work-up. I assessed the patient at approximately 7:05 PM. He appears older than his age. He describes shortness of breath and fatigue. He is on nasal cannula and receiving a DuoNeb and his O2 sat on 4 L is in the mid 80s. I talked to him about how his work-up is still pending, and I advised him that he would need hospitalization due to his hypoxia. He cut me off saying that there is no way he is going to be admitted to a hospital and that family members have oxygen at home and he will go home and use that. I then explained to him how he is significantly hypoxic and that coming off the supplemental oxygen would lead to organ damage, permanent disability and/or and that there would be no way he could appropriately monitor his oxygen saturation at home or ensure that he is delivering sufficient oxygen. I also explained to him that even patients who are on supplemental oxygen if they have a new oxygen requirement this is an indication for them to be admitted. Patient expressed an understanding of this and still demanded to be discharged. He is willing to wait until his work-up comes back because he says that he is only here to understand what is going on. He says that if he gets worse he will come back and will be ready to be admitted at that time. ED Course as of 01/29/232053 Sat Jan 29, 2023 184 Patient is talking in full sentences. He is hypoxic but does not appear in distress. Patient placed on 6 L nasal cannula with improvement to 90% oxygen saturation on his hand [SP] 1914 I reviewed the chest x-ray noting diffuse pulmonary infiltrates consistent with pulmonary edema or infection [AK] 2043 I reviewed the CTA of the chest showing no large PE, diffuse groundglass opacities could be seen in the setting of viral pneumonia such as COVID-19. [AK] ED Course User Index [AK] Julian Quispe MD [SP] Giovani Collado MD Diagnoses as of 01/29/232053 Acute hypoxic respiratory failure (HCC) Patient has a leukocytosis of 16.7. He has no anemia. A VBG had been obtained showing normal PCO2 and PO2. Lactate 3.6. Patient then requested to leave and I spoke with him once more. I explained the chest x-ray findings, and I explained my suspicion that this represented a viral or bacterial pneumonia. I explained that if his COVID swab comes back negative, I would consider this bacterial and start him on IV antibiotics. I also explained that in that case, he would meet criteria for severe sepsis. He then angrily waved his hand and said okay admit me. As he is now requiring nonrebreather, we will admit to the ICU. His preference is [place] ICU. COVID/RSV/Flu negative. I spoke with Cale Olivarez CNP with ICU at [place] who accepts patient for transfer, requests CTA chest to rule out PE. Patient asked for something for anxiety and was given ativan IV. Total critical care time today provided was at least 30 minutes. This excludes seperately billable procedure. Critical care time provided for evaluation of the patient, ordering laboratory/imaging studies, review of the medical record, initiation of IV medications in the emergency department, discussion of the patient with ICU, frequent re-evaluation of the patient after initiation of treatment in the emergency department with high probability of clinical decompensation if above measures were not enacted. Julian Quispe MD 01/29/23 2331 [facility] Work Phone: 10-10-2022 Hospital Discharge instructions Betsy Campos DO - 10/10/2022 6:17 PM EDT Our hand surgery team will call you to schedule follow-up, call them yourself if you have not heard from them by lunchtime tomorrow. Call your family doctor to schedule follow-up as well. Use acetaminophen 1000 mg up to 4 times daily as needed for pain. Take antibiotics as prescribed until they are gone. Return to the ED for fever, for symptoms that persist, change or worsen, or if any other problems arise. documented in this encounter [facility] 10-10-2022 Emergency department Note EMERGENCY DEPARTMENT ENCOUNTER Pt Name: El Smith Birthdate 1980 Date of evaluation: 10/10/2022 ED Provider: Betsy Campos DO CHIEF COMPLAINT Chief Complaint Patient presents with Wound Infection HISTORY OF PRESENT ILLNESS (Location/Symptom, Timing/Onset, Context/Setting, Quality, Duration, Modifying Factors, Severity) Note limiting factors. I wore appropriate PPE for the entirety of this encounter. HPI El Smith is a 41 y.o. male who presents to the emergency department with pain to his right index finger. Says that he cut his finger on a piece of glass 3 to 4 weeks ago, did not seek medical attention at that time. Pain and swelling of not improved. He says that it started to seep and drained, he is having more pain which led to his visit today. No fever. No other pain or injury. No other acute symptoms. Nursing Notes were reviewed. REVIEW OF SYSTEMS All systems reviewed and negative except as noted above. 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 Drug abuse ([facility]) ([facility]) Gastroenteritis 11/23/2018 Last Assessment & Plan: Predominantly vomiting; ?food poisoning vs viral gastroenteritis IV hydration PRN antiemetics Hyperlipidemia Hypertension Iritis of left eye 09/20/2018 [facility]my[facility] infarction) ([facility]) ([facility]) Opioid dependence, uncomplicated ([facility]) 10/27/2021 Presence of stent in right coronary artery 10/02/2021 Sciatica Spinal stenosis, lumbar Tobacco abuse SURGICAL HISTORY Past Surgical History: Procedure Laterality Date ARM SURGERY (HISTORICAL) metal rods in adam upper extremities BACK SURGERY COLONOSCOPY CORONARY ANGIOPLASTY WITH STENT PLACEMENT 09/23/2021 DORIS to proximal RCA FRACTURE SURGERY CURRENT MEDICATIONS Previous Medications ASPIRIN 81 MG EC TABLET Take 81 mg by mouth in the morning. CARVEDILOL (COREG) 12.5 MG TABLET LIDOCAINE (LIDODERM) 5 % PATCH Apply 1 patch topically daily. Remove & discard patch within 12 hours or as directed by MD. LISINOPRIL PO Take by mouth. METHADONE HCL PO Take by mouth. METHOCARBAMOL (ROBAXIN) 500 MG TABLET Take 2 tablets (1,000 mg) by mouth in the morning and 2 tablets (1,000 mg) at noon and 2 tablets (1,000 mg) before bedtime. Do all this for 10 days. TICAGRELOR (BRILINTA PO) Take by mouth. ALLERGIES Nickel FAMILY HISTORY Family History Problem Relation Name Age of Onset Atrial fibrillation Sister Hyperlipidemia Mother Obesity Mother Asthma Mother Depression Mother Obesity Sister Depression Sister Arthritis Mother High Blood Pressure Maternal Grandmother Diabetes Mother Asthma Maternal Grandmother Substance Abuse Sister Diabetes Father Stroke Paternal Grandfather Arthritis Sister High Blood Pressure Mother Vision loss Maternal Grandmother Diabetes Maternal Grandmother Stroke Maternal Grandmother Arthritis Maternal Grandfather Arthritis Maternal Grandmother Cancer Maternal Grandfather Depression Maternal Grandmother Cancer Brother Diabetes Paternal Grandfather Stroke Paternal Grandmother Diabetes Maternal Grandfather Obesity Maternal Grandmother Depression Maternal Grandfather Arthritis Paternal Grandmother Vision loss Maternal Grandfather Depression Paternal Grandmother Arthritis Paternal Grandfather SOCIAL HISTORY Social History Socioeconomic History Marital status: Single Tobacco Use Smoking status: Every Day Packs/day: 2.00 Types: Cigarettes Smokeless tobacco: Current Vaping Use Vaping Use: Never used Substance and Sexual Activity Alcohol use: Yes Comment: 15 shots of whiskey Drug use: Yes Types: Marijuana Comment: uses methadone, also buys pain meds on the streets Social Determinants of Health Transportation Needs: No Transportation Needs (09/18/2022) PRAPARE - Transportation Lack of Transportation (Medical): No Lack of Transportation (Non-Medical): No Intimate Partner Violence: Not At Risk (09/18/2022) Humiliation, Afraid, Rape, and Kick questionnaire Fear of Current or Ex-Partner: No Emotionally Abused: No Physically Abused: No Sexually Abused: No Housing Stability: Low Risk (09/18/2022) Housing Stability Vital Sign Unable to Pay for Housing in the Last Year: No Number of Places Lived in the Last Year: 1 Unstable Housing in the Last Year: No PHYSICAL EXAM ED Triage Vitals [10/10/22 1555] Temp Heart Rate Resp BP 36.7 C (98.1 F) 91 17 (!) 135/92 SpO2 Temp src Heart Rate Source Patient Position 96 % -- -- -- BP Location FiO2 (%) -- -- General: Well-developed, well-nourished patient lying in bed who appears somewhat uncomfortable but nontoxic. Head: Atraumatic, normocephalic. Eyes: Sclera anicteric. ENT: Mucous membranes moist. Respiratory: Normal respiratory pattern without conversational dyspnea or distress. Skin: Warm and dry. Neuro: Awake and alert with normal speech and mental status. Moves all extremities equally well, no focal deficits or lateralizing signs. Psychiatric: Mood and affect appropriate. Musculoskeletal: Small inflamed area over the PIP joint of the second finger on the right hand. Difficult to tell whether there may be a small amount of fluid within this inflamed area. No palpable foreign body. I cannot express any drainage from the wound. Flexion extension of the PIP causes some discomfort but he is able to do it/tolerated. Neurovascular intact distally. DIAGNOSTIC RESULTS/EMERGENCY DEPARTMENT COURSE and DIFFERENTIAL DIAGNOSIS/MDM: Vitals: Vitals: 10/10/22 1555 BP: (!) 135/92 Pulse: 91 Resp: 17 Temp: 36.7 C (98.1 F) SpO2: 96% Weight: 90.7 kg (200 lb) Height: 1.778 m (5' 10) EKG: EKG was reviewed by myself. [facility]: Labs Reviewed - No data to display All other labs were within normal range or not returned as of this dictation. Medical Decision Making Amount and/or Complexity of Data Reviewed Radiology: ordered. I considered incision and drainage, but I am not convinced that there is drainable pus in this lesion. I do not think that ultrasound would be beneficial in differentiating, as if there is pus it would be a tiny amount. I am hesitant to cut into this lesion but I am not convinced that there is pus considering its location overlying the joint. If there is communication with the joint and I reopen it, I would be exposing the patient to risk of joint infection without potential for benefit. This was discussed with the patient. There is no convincing evidence for infection. There is minimal warmth, he describes drainage but I see none. Its not hot or bright red. There is no foreign body. When weighing the risk and benefits of antibiotics, I think there is a similar level of potential risk from antibiotic side effects or allergic reactions as there is potential benefit. The patient seems to prefer antibiotics, and I think this is reasonable. We will prescribe a course of Bactrim while awaiting follow-up with hand surgery. I have contacted the [facility] to coordinate follow-up. Medications provided in the ED included those listed below. The patient was discharged and was provided with prescriptions for Bactrim and instructions to use acetaminophen. Was given referral for hand surgery. Interpretation per the Radiologist below, if available at the time of this note: XR hand 3+ views right Final Result Medications - No data to display PROCEDURES: Unless otherwise noted below, none Procedures FINAL IMPRESSION 1. Injury of finger of right hand, initial encounter PATIENT REFERRED TO: No follow-up provider specified. DISCHARGE MEDICATIONS: New Prescriptions SULFAMETHOXAZOLE-TRIMETHOPRIM (BACTRIM DS) 800-160 MG TABLET Take 1 tablet by mouth 2 times daily for 5 days. (Comment: Please note this report has been produced using speech recognition software and may contain errors related to that system including errors in grammar, punctuation, and spelling, as well as words and phrases that may be inappropriate. If there are any questions or concerns please feel free to contact the dictating provider for clarification.) Betsy Campos DO (electronically signed) Emergency Medicine Provider Betsy Campos DO 10/10/221816 Pt comes into ED complaining of right index finger infection. Pt said he cut his finger over a month ago but onset of swelling, drainage and pain started x2 days ago. Pt is a/ox3 and ambulatory documented in this encounter [facility] 10-10-2022 Emergency department Triage note Pt comes into ED complaining of right index finger infection. Pt said he cut his finger over a month ago but onset of swelling, drainage and pain started x2 days ago. Pt is a/ox3 and ambulatory [facility] 10-10-2022 Physician Emergency department Note EMERGENCY DEPARTMENT ENCOUNTER Pt Name: El Smith Birthdate 1980 Date of evaluation: 10/10/2022 ED Provider: Betsy Campos DO CHIEF COMPLAINT Chief Complaint Patient presents with Wound Infection HISTORY OF PRESENT ILLNESS (Location/Symptom, Timing/Onset, Context/Setting, Quality, Duration, Modifying Factors, Severity) Note limiting factors. I wore appropriate PPE for the entirety of this encounter. HPI El Smith is a 41 y.o. male who presents to the emergency department with pain to his right index finger. Says that he cut his finger on a piece of glass 3 to 4 weeks ago, did not seek medical attention at that time. Pain and swelling of not improved. He says that it started to seep and drained, he is having more pain which led to his visit today. No fever. No other pain or injury. No other acute symptoms. Nursing Notes were reviewed. REVIEW OF SYSTEMS All systems reviewed and negative except as noted above. 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 Drug abuse ([facility]) ([facility]) Gastroenteritis 11/23/2018 Last Assessment & Plan: Predominantly vomiting; ?food poisoning vs viral gastroenteritis IV hydration PRN antiemetics Hyperlipidemia Hypertension Iritis of left eye 09/20/2018 [facility] (myocardial infarction) ([facility]) ([facility]) Opioid dependence, uncomplicated ([facility]) 10/27/2021 Presence of stent in right coronary artery 10/02/2021 Sciatica Spinal stenosis, lumbar Tobacco abuse SURGICAL HISTORY Past Surgical History: Procedure Laterality Date ARM SURGERY (HISTORICAL) metal rods in adam upper extremities BACK SURGERY COLONOSCOPY CORONARY ANGIOPLASTY WITH STENT PLACEMENT 09/23/2021 DORIS to proximal RCA FRACTURE SURGERY CURRENT MEDICATIONS Previous Medications ASPIRIN 81 MG EC TABLET Take 81 mg by mouth in the morning. CARVEDILOL (COREG) 12.5 MG TABLET LIDOCAINE (LIDODERM) 5 % PATCH Apply 1 patch topically daily. Remove & discard patch within 12 hours or as directed by MD. LISINOPRIL PO Take by mouth. METHADONE HCL PO Take by mouth. METHOCARBAMOL (ROBAXIN) 500 MG TABLET Take 2 tablets (1,000 mg) by mouth in the morning and 2 tablets (1,000 mg) at noon and 2 tablets (1,000 mg) before bedtime. Do all this for 10 days. TICAGRELOR (BRILINTA PO) Take by mouth. ALLERGIES Nickel FAMILY HISTORY Family History Problem Relation Name Age of Onset Atrial fibrillation Sister Hyperlipidemia Mother Obesity Mother Asthma Mother Depression Mother Obesity Sister Depression Sister Arthritis Mother High Blood Pressure Maternal Grandmother Diabetes Mother Asthma Maternal Grandmother Substance Abuse Sister Diabetes Father Stroke Paternal Grandfather Arthritis Sister High Blood Pressure Mother Vision loss Maternal Grandmother Diabetes Maternal Grandmother Stroke Maternal Grandmother Arthritis Maternal Grandfather Arthritis Maternal Grandmother Cancer Maternal Grandfather Depression Maternal Grandmother Cancer Brother Diabetes Paternal Grandfather Stroke Paternal Grandmother Diabetes Maternal Grandfather Obesity Maternal Grandmother Depression Maternal Grandfather Arthritis Paternal Grandmother Vision loss Maternal Grandfather Depression Paternal Grandmother Arthritis Paternal Grandfather SOCIAL HISTORY Social History Socioeconomic History Marital status: Single Tobacco Use Smoking status: Every Day Packs/day: 2.00 Types: Cigarettes Smokeless tobacco: Current Vaping Use Vaping Use: Never used Substance and Sexual Activity Alcohol use: Yes Comment: 15 shots of whiskey Drug use: Yes Types: Marijuana Comment: uses methadone, also buys pain meds on the streets Social Determinants of Health Transportation Needs: No Transportation Needs (09/18/2022) PRAPARE - Transportation Lack of Transportation (Medical): No Lack of Transportation (Non-Medical): No Intimate Partner Violence: Not At Risk (09/18/2022) Humiliation, Afraid, Rape, and Kick questionnaire Fear of Current or Ex-Partner: No Emotionally Abused: No Physically Abused: No Sexually Abused: No Housing Stability: Low Risk (09/18/2022) Housing Stability Vital Sign Unable to Pay for Housing in the Last Year: No Number of Places Lived in the Last Year: 1 Unstable Housing in the Last Year: No PHYSICAL EXAM ED Triage Vitals [10/10/22 1555] Temp Heart Rate Resp BP 36.7 C (98.1 F) 91 17 (!) 135/92 SpO2 Temp src Heart Rate Source Patient Position 96 % -- -- -- BP Location FiO2 (%) -- -- General: Well-developed, well-nourished patient lying in bed who appears somewhat uncomfortable but nontoxic. Head: Atraumatic, normocephalic. Eyes: Sclera anicteric. ENT: Mucous membranes moist. Respiratory: Normal respiratory pattern without conversational dyspnea or distress. Skin: Warm and dry. Neuro: Awake and alert with normal speech and mental status. Moves all extremities equally well, no focal deficits or lateralizing signs. Psychiatric: Mood and affect appropriate. Musculoskeletal: Small inflamed area over the PIP joint of the second finger on the right hand. Difficult to tell whether there may be a small amount of fluid within this inflamed area. No palpable foreign body. I cannot express any drainage from the wound. Flexion extension of the PIP causes some discomfort but he is able to do it/tolerated. Neurovascular intact distally. DIAGNOSTIC RESULTS/EMERGENCY DEPARTMENT COURSE and DIFFERENTIAL DIAGNOSIS/MDM: Vitals: Vitals: 10/10/22 1555 BP: (!) 135/92 Pulse: 91 Resp: 17 Temp: 36.7 C (98.1 F) SpO2: 96% Weight: 90.7 kg (200 lb) Height: 1.778 m (5' 10) EKG: EKG was reviewed by myself. [facility]: Labs Reviewed - No data to display All other labs were within normal range or not returned as of this dictation. Medical Decision Making Amount and/or Complexity of Data Reviewed Radiology: ordered. I considered incision and drainage, but I am not convinced that there is drainable pus in this lesion. I do not think that ultrasound would be beneficial in differentiating, as if there is pus it would be a tiny amount. I am hesitant to cut into this lesion but I am not convinced that there is pus considering its location overlying the joint. If there is communication with the joint and I reopen it, I would be exposing the patient to risk of joint infection without potential for benefit. This was discussed with the patient. There is no convincing evidence for infection. There is minimal warmth, he describes drainage but I see none. Its not hot or bright red. There is no foreign body. When weighing the risk and benefits of antibiotics, I think there is a similar level of potential risk from antibiotic side effects or allergic reactions as there is potential benefit. The patient seems to prefer antibiotics, and I think this is reasonable. We will prescribe a course of Bactrim while awaiting follow-up with hand surgery. I have contacted the [facility] to coordinate follow-up. Medications provided in the ED included those listed below. The patient was discharged and was provided with prescriptions for Bactrim and instructions to use acetaminophen. Was given referral for hand surgery. Interpretation per the Radiologist below, if available at the time of this note: XR hand 3+ views right Final Result Medications - No data to display PROCEDURES: Unless otherwise noted below, none Procedures FINAL IMPRESSION 1. Injury of finger of right hand, initial encounter PATIENT REFERRED TO: No follow-up provider specified. DISCHARGE MEDICATIONS: New Prescriptions SULFAMETHOXAZOLE-TRIMETHOPRIM (BACTRIM DS) 800-160 MG TABLET Take 1 tablet by mouth 2 times daily for 5 days. (Comment: Please note this report has been produced using speech recognition software and may contain errors related to that system including errors in grammar, punctuation, and spelling, as well as words and phrases that may be inappropriate. If there are any questions or concerns please feel free to contact the dictating provider for clarification.) Betsy Campos DO (electronically signed) Emergency Medicine Provider Betsy Campos DO 10/10/221816 [facility] [place] 09-25-2022 Hospital Discharge instructions Patient Education 09/24/2022 23:53:24 Fracture, Foot Foot Fracture You have a broken bone (fracture) in your foot. This will cause pain, swelling, and often bruising. It will usually take about 4 to 8 weeks to heal. A foot fracture may be treated with a special shoe, splint, cast, or boot. Home care Follow these guidelines when caring for yourself at home: You may be given a splint, cast, shoe, or boot to keep the injured area from moving. Unless you were told otherwise, use crutches or a walker. Don t put weight on the injured foot until your health care provider says you can do so. (You can rent crutches and a walker at many pharmacies and surgical or orthopedic supply stores.) Don t put weight on a splint, or it will break. Keep your leg elevated to reduce pain and swelling. When sleeping, put a pillow under the injured leg. When sitting, support the injured leg so it is above your waist. This is very important during the first 2 days (48 hours). Put an ice pack on the injured area. Do this for 20 minutes every 1 to 2 hours the first day for pain relief. You can make an ice pack by wrapping a plastic bag of ice cubes in a thin towel. As the ice melts, be careful that the splint, cast, boot, or shoe doesn t get wet. You can place the ice pack directly over the splint or cast. Unless told otherwise, you can open the boot or shoe to apply the ice pack. Continue using the ice pack 3 to 4 times a day for the next 2 days. Then use the ice pack as needed to ease pain and swelling. Keep the splint, cast, boot, or shoe dry. When bathing, protect it with a large plastic bag, rubber-banded at the top end. If a fiberglass splint or cast or boot gets wet, you can dry it with a driver wheelchair. Unless told otherwise, you can take off the boot or shoe to bathe. You may use acetaminophen or ibuprofen to control pain, unless another pain medicine was prescribed. If you have chronic liver or kidney disease, talk with your healthcare provider before using these medicines. Also talk with your provider if you ve had a stomach ulcer or gastrointestinal bleeding. Don t put creams or objects under the cast if you have itching. Follow-up care Follow up with your healthcare provider, or as advised. This is to make sure the bone is healing the way it should. If you were given a splint, it may be changed to a cast or boot at your follow-up visit. X-rays may be taken. You will be told of any new findings that may affect your care. When to seek medical advice Call your healthcare provider right away if any of these occur: The cast or splint cracks The plaster cast or splint becomes wet or soft The fiberglass cast or splint stays wet for more than 24 hours Bad odor from the cast or wound fluid stains the cast Tightness or pain under the cast or splint gets worse Toes become swollen, cold, blue, numb, or tingly You can t move your toes Skin around cast or splint becomes red Fever of 100.4 F (38 C) or higher, or as directed by your healthcare provider [id number] [employer]. [address] [place] [address], [place] [address]. All rights reserved. This information is not intended as a substitute for professional medical care. Always follow your healthcare professional's instructions. 09/24/2022 23:53:15 Back Pain (Acute or Chronic) Back Pain (Acute or Chronic) Back pain is one of the most common problems. The good news is that most people feel better in 1 to 2 weeks, and most of the rest in 1 to 2 months. Most people can remain active. People who have pain describe it differently not everyone is the same. The pain can be sharp, stabbing, shooting, aching, cramping or burning. Movement, standing, bending, lifting, sitting, or walking may worsen pain. It can be localized to one spot or area, or it can be more generalized. It can spread or radiate upwards, to the front, or go down your arms or legs (sciatica). It can cause muscle spasm. Most of the time, mechanical problems with the muscles or spine cause the pain. Mechanical problems are usually caused by an injury to the muscles or ligaments. While illness can cause back pain, it is usually not caused by a serious illness. Mechanical problems include: Physical activity such as sports, exercise, work, or normal activity Overexertion, lifting, pushing, pulling incorrectly or too aggressively Sudden twisting, bending, or stretching from an accident, or accidental movement Poor posture Stretching or moving wrong, without noticing pain at the time Poor coordination, lack of regular exercise (check with your doctor about this) Spinal disc disease or arthritis Stress Pain can also be related to , or illness like appendicitis, bladder or kidney infections, pelvic infections, and many other things. Acute back pain usually gets better in 1 to 2 weeks. Back pain related to disk disease, arthritis in the spinal joints or spinal stenosis (narrowing of the spinal canal) can become chronic and last for months or years. Unless you had a physical injury (for example, a car accident or fall) X-rays are usually not needed for the initial evaluation of back pain. If pain continues and does not respond to medical treatment, X-rays and other tests may be needed. Home care Try these home care recommendations: When in bed, try to find a position of comfort. A firm mattress is best. Try lying flat on your back with pillows under your knees. You can also try lying on your side with your knees bent up towards your chest and a pillow between your knees. At first, do not try to stretch out the sore spots. If there is a strain, it is not like the good soreness you get after exercising without an injury. In this case, stretching may make it worse. Don't sit for long periods, as in a long car ride or during other travel. This puts more stress on the lower back than standing or walking. During the first 24 to 72 hours after an acute injury or flare up of chronic back pain, apply an ice pack to the painful area for 20 minutes and then remove it for 20 minutes. Do this over a period of 60 to 90 minutes or several times a day. This will reduce swelling and pain. Wrap the ice pack in a thin towel or plastic to protect your skin. You can start with ice, then switch to heat. Heat (hot shower, hot bath, or heating pad) reduces pain and works well for muscle spasms. Heat can be applied to the painful area for 20 minutes then remove it for 20 minutes. Do this over a period of 60 to 90 minutes or several times a day. Do not sleep on a heating pad. It can lead to skin monet or tissue damage. You can alternate ice and heat therapy. Talk with your doctor about the best treatment for your back pain. Therapeutic massage can help relax the back muscles without stretching them. Be aware of safe lifting methods and do not lift anything without stretching first. Medicines Talk to your doctor before using medicine, especially if you have other medical problems or are taking other medicines. You may use [id number] medicine as directed on the bottle to control pain, unless another pain medicine was prescribed. If you have chronic conditions like diabetes, liver or kidney disease, stomach ulcers, or gastrointestinal bleeding, or are taking blood thinners, talk to your doctor before taking any medicine. Be careful if you are given a prescription medicines, narcotics, or medicine for muscle spasms. They can cause drowsiness, affect your coordination, reflexes, and judgement. Do not drive or operate heavy machinery. Follow-up care Follow up with your healthcare provider, or as advised. A radiologist will review any X-rays that were taken. Your provide will notify you of any new findings that may affect your care. Call 911 Call 911 if any of the following occur: Trouble breathing Confusion Very drowsy or trouble awakening Fainting or loss of consciousness Rapid or very slow heart rate Loss of bowel or bladder control When to seek medical advice Call your healthcare provider right away if any of these occur: Pain becomes worse or spreads to your legs Weakness or numbness in one or both legs Numbness in the groin or genital area [id number] [employer]. [address] [place] [address]. All rights reserved. This information is not intended as a substitute for professional medical care. Always follow your healthcare professional's instructions. Follow Up Care 09/24/2022 22:18:09 With:[facility] Address: [place] [address]- When:2-4 days With:PUSHPA BELLO MD Address: [address] [address] [phone] When:2-4 days [facility] 09-24-2022 Note Discharge Instructions Thank you for allowing [facility] to assist you with your healthcare needs. The following is important discharge information regarding your hospital visit. Diagnosis from Today's Visit Lumbar radiculopathy Closed fracture of third metatarsal bone of right foot Closed fracture of second metatarsal bone of right foot Hip pain-swelling What to Do Next Instructions from Your Care Team No qualifying data available. Post Acute Orders No qualifying data available. You Need to Schedule the Following Appointments Follow Up with [facility] When Within 2-4 days Where: [address] [place] [address] [place] [address]- Follow Up with PUSHPA BELLO MD When Within 2-4 days Where: [address] [address] [phone] Allergies NKA Medications Please ask your primary doctor or pharmacist before taking any other medication not listed, including over the counter drugs, herbal medications, vitamins and or supplements as they may interact with your home medications. What How Much When Why Instructions Last Dose New dexAMETHasone (dexAMETHasone 2 mg oral tablet) 1 tab(s) by mouth Two (2) times a day Lumbar radiculopathy Closed fracture of third metatarsal bone of right foot Duration: 5 Days Printed Prescription Unchanged carvedilol (carvedilol 12.5 mg oral tablet) Unchanged hydrOXYzine (hydrOXYzine hydrochloride 50 mg oral tablet) 1 tab(s) by mouth Four (4) times a day as needed for for anxiety Unchanged lidocaine topical (Lidoderm 5% topical patch) 1 patch(es) Transdermal Every day as needed for pain remove patches after 12 hours Unchanged lisinopril (lisinopril 5 mg oral tablet) 1 tab(s) by mouth Once a day Unchanged LORazepam (LORazepam 2 mg oral tablet) 1 tab(s) by mouth Once Unchanged meloxicam (meloxicam 15 mg oral tablet) 1 tab(s) by mouth Once a day Unchanged ondansetron (ondansetron 4 mg oral tablet, disintegrating) Unchanged PHENobarbital (PHENobarbital 16.2 mg oral tablet) Unchanged rosuvastatin (rosuvastatin 40 mg oral tablet) 1 tab(s) by mouth Once a day Unchanged ticagrelor (Brilinta (ticagrelor) 90 mg oral tablet) 1 tab(s) by mouth Two (2) times a day Unchanged traZODone (traZODone 50 mg oral tablet) 0.5 tab(s) by mouth Daily at bedtime Please take this list to your next doctor s visit. Bring all medications you take, including over the counter medications, herbals and other supplements with you to your doctor s visit. Patients and families are reminded to discard old lists and to update any records with all medication providers or retail pharmacies. Medication Leaflets dexamethasone (oral) (dex a METH a sone) Decadron, DexPak 6 DayTaperpak, Hemady What is the most important information I should know about dexamethasone? You should not use this medicine if you have a fungal infection anywhere in your body. Tell your doctor about all your medical conditions, and all the medicines you are using. There are many other diseases that can be affected by steroid use, and many other medicines that can interact with steroids. What is dexamethasone? There are many brands and forms of dexamethasone available. Not all brands are listed on this leaflet. Dexamethasone is a steroid that prevents the release of substances in the body that cause inflammation. Dexamethasone is used to treat many different conditions such as allergic disorders, skin conditions, ulcerative colitis, arthritis, lupus, psoriasis, or breathing disorders. Dexamethasone may also be used for purposes not listed in this medication guide. What should I discuss with my healthcare provider before taking dexamethasone? You should not use dexamethasone if you are allergic to it, or if you have: a fungal infection anywhere in your body. Tell your doctor if you have ever had: liver disease (such as cirrhosis); kidney disease; a thyroid disorder; malaria; tuberculosis; osteoporosis; a muscle disorder such as myasthenia gravis; diabetes (steroid medicine may increase glucose levels in your blood or urine); glaucoma or cataracts; herpes infection of the eyes; stomach ulcers, ulcerative colitis, diverticulitis, inflammatory bowel disease; depression or mental illness; congestive heart failure; or high blood pressure. Steroid medication affects your immune system. You may get infections more easily. Steroids can also worsen or reactivate an infection you've already had. Tell your doctor about any illness or infection you have had within the past several weeks. It is not known whether this medicine will harm an unborn baby. Tell your doctor if you are . You should not breastfeed while using dexamethasone. How should I take dexamethasone? Follow all directions on your prescription label and read all medication guides or instruction sheets. Your doctor may occasionally change your dose. Use the medicine exactly as directed. Your dose needs may change due to surgery, illness, stress, or a medical emergency. Tell your doctor about any such situation that affects you. This medicine can affect the results of certain medical tests. Tell any doctor who treats you that you are using dexamethasone. Do not stop using dexamethasone suddenly, or you could have unpleasant withdrawal symptoms. Ask your doctor how to safely stop using this medicine. In case of emergency, wear or carry medical identification to let others know you use dexamethasone. Store at room temperature away from moisture and heat. What happens if I miss a dose? Call your doctor for instructions if you miss a dose of dexamethasone. What happens if I overdose? Seek emergency medical attention or call the Poison Help line at . An overdose of dexamethasone is not expected to produce life threatening symptoms. senior care use of high doses can lead to thinning skin, easy bruising, changes in body fat (especially in your face, neck, back, and waist), increased acne or facial hair, menstrual problems, impotence, or loss of interest in sex. What should I avoid while taking dexamethasone? Avoid being near people who are sick or have infections. Call your doctor for preventive treatment if you are exposed to chickenpox or measles. These conditions can be serious or even fatal in people who are using steroid medicine. Avoid drinking alcohol while you are taking dexamethasone. Do not receive a 'live' vaccine while using dexamethasone. The vaccine may not work as well during this time, and may not fully protect you from disease. Live vaccines include measles, mumps, rubella (MMR), polio, rotavirus, typhoid, yellow fever, varicella (chickenpox), and zoster (shingles). What are the possible side effects of dexamethasone? Get emergency medical help if you have signs of an allergic reaction: hives; difficulty breathing; swelling of your face, lips, tongue, or throat. Call your doctor at once if you have: muscle tightness, weakness, or limp feeling; blurred vision, tunnel vision, eye pain, or seeing halos around lights; shortness of breath (even with mild exertion), swelling, rapid weight gain; severe depression, unusual thoughts or behavior; a seizure (convulsions); bloody or tarry stools, coughing up blood; fast or slow heart rate, weak pulse; pancreatitis--severe pain in your upper stomach spreading to your back, nausea and vomiting; low potassium level--leg cramps, constipation, irregular heartbeats, fluttering in your chest, increased thirst or urination, numbness or tingling; or increased blood pressure--severe headache, blurred vision, pounding in your neck or ears, anxiety, nosebleed. Dexamethasone can affect growth in children. Tell your doctor if your child is not growing at a normal rate while using this medicine. Common side effects may include: fluid retention (swelling in your hands or ankles); increased appetite; mood changes, trouble sleeping; skin rash, bruising or discoloration; acne, increased sweating, increased hair growth; headache, dizziness; nausea, vomiting, upset stomach; changes in your menstrual periods; or changes in the shape or location of body fat (especially in your arms, legs, face, neck, breasts, and waist). This is not a complete list of side effects and others may occur. Call your doctor for medical advice about side effects. You may report side effects to FDA at 2-867-AJM-8263. What other drugs will affect dexamethasone? Sometimes it is not safe to use certain medications at the same time. Some drugs can affect your blood levels of other drugs you take, which may increase side effects or make the medications less effective. Tell your doctor about all your current medicines. Many drugs can affect dexamethasone, especially: an antibiotic or antifungal medicine; control pills or hormone replacement therapy; insulin or diabetes medications you take by mouth; medicine to treat dementia or Parkinson's disease; a blood thinner--warfarin, Coumadin, Jantoven; or NSAIDs (nonsteroidal anti-inflammatory drugs)--aspirin, ibuprofen (Advil, Motrin), naproxen (Aleve), celecoxib, diclofenac, indomethacin, meloxicam, and others. This list is not complete and many other drugs may affect dexamethasone. This includes prescription and ndhu-gnq-kaujwzm medicines, vitamins, and herbal products. Not all possible drug interactions are listed here. Where can I get more information? Your pharmacist can provide more information about dexamethasone. Remember, keep this and all other medicines out of the reach of children, never share your medicines with others, and use this medication only for the indication prescribed. Every effort has been made to ensure that the information provided by [employer]. ('[employer]') is accurate, up-to-date, and complete, but no guarantee is made to that effect. Drug information contained herein may be time sensitive. [employer] information has been compiled for use by healthcare practitioners and consumers in the [place] and therefore [employer] does not warrant that uses outside of the [place] are appropriate, unless specifically indicated otherwise. [employer] drug information does not endorse drugs, diagnose patients or recommend therapy. [employer] drug information is an informational resource designed to assist licensed healthcare practitioners in caring for their patients and/or to serve consumers viewing this service as a supplement to, and not a substitute for, the expertise, skill, knowledge and judgment of healthcare practitioners. The absence of a warning for a given drug or drug combination in no way should be construed to indicate that the drug or drug combination is safe, effective or appropriate for any given patient. [employer] does not assume any responsibility for any aspect of healthcare administered with the aid of information [employer] provides. The information contained herein is not intended to cover all possible uses, directions, precautions, warnings, drug interactions, allergic reactions, or adverse effects. If you have questions about the drugs you are taking, check with your doctor, nurse or pharmacist. Copyright 4469-4051 [employer]. Version: 8.01. Revision Date: 02/20/2020. Education Materials Foot Fracture You have a broken bone (fracture) in your foot. This will cause pain, swelling, and often bruising. It will usually take about 4 to 8 weeks to heal. A foot fracture may be treated with a special shoe, splint, cast, or boot. Home care Follow these guidelines when caring for yourself at home: You may be given a splint, cast, shoe, or boot to keep the injured area from moving. Unless you were told otherwise, use crutches or a walker. Don t put weight on the injured foot until your health care provider says you can do so. (You can rent crutches and a walker at many pharmacies and surgical or orthopedic supply stores.) Don t put weight on a splint, or it will break. Keep your leg elevated to reduce pain and swelling. When sleeping, put a pillow under the injured leg. When sitting, support the injured leg so it is above your waist. This is very important during the first 2 days (48 hours). Put an ice pack on the injured area. Do this for 20 minutes every 1 to 2 hours the first day for pain relief. You can make an ice pack by wrapping a plastic bag of ice cubes in a thin towel. As the ice melts, be careful that the splint, cast, boot, or shoe doesn t get wet. You can place the ice pack directly over the splint or cast. Unless told otherwise, you can open the boot or shoe to apply the ice pack. Continue using the ice pack 3 to 4 times a day for the next 2 days. Then use the ice pack as needed to ease pain and swelling. Keep the splint, cast, boot, or shoe dry. When bathing, protect it with a large plastic bag, rubber-banded at the top end. If a fiberglass splint or cast or boot gets wet, you can dry it with a driver wheelchair. Unless told otherwise, you can take off the boot or shoe to bathe. You may use acetaminophen or ibuprofen to control pain, unless another pain medicine was prescribed. If you have chronic liver or kidney disease, talk with your healthcare provider before using these medicines. Also talk with your provider if you ve had a stomach ulcer or gastrointestinal bleeding. Don t put creams or objects under the cast if you have itching. Follow-up care Follow up with your healthcare provider, or as advised. This is to make sure the bone is healing the way it should. If you were given a splint, it may be changed to a cast or boot at your follow-up visit. X-rays may be taken. You will be told of any new findings that may affect your care. When to seek medical advice Call your healthcare provider right away if any of these occur: The cast or splint cracks The plaster cast or splint becomes wet or soft The fiberglass cast or splint stays wet for more than 24 hours Bad odor from the cast or wound fluid stains the cast Tightness or pain under the cast or splint gets worse Toes become swollen, cold, blue, numb, or tingly You can t move your toes Skin around cast or splint becomes red Fever of 100.4 F (38 C) or higher, or as directed by your healthcare provider 4099-0106 [employer]. [address] [place] [address], [place] [address]. All rights reserved. This information is not intended as a substitute for professional medical care. Always follow your healthcare professional's instructions. Back Pain (Acute or Chronic) Back pain is one of the most common problems. The good news is that most people feel better in 1 to 2 weeks, and most of the rest in 1 to 2 months. Most people can remain active. People who have pain describe it differently not everyone is the same. The pain can be sharp, stabbing, shooting, aching, cramping or burning. Movement, standing, bending, lifting, sitting, or walking may worsen pain. It can be localized to one spot or area, or it can be more generalized. It can spread or radiate upwards, to the front, or go down your arms or legs (sciatica). It can cause muscle spasm. Most of the time, mechanical problems with the muscles or spine cause the pain. Mechanical problems are usually caused by an injury to the muscles or ligaments. While illness can cause back pain, it is usually not caused by a serious illness. Mechanical problems include: Physical activity such as sports, exercise, work, or normal activity Overexertion, lifting, pushing, pulling incorrectly or too aggressively Sudden twisting, bending, or stretching from an accident, or accidental movement Poor posture Stretching or moving wrong, without noticing pain at the time Poor coordination, lack of regular exercise (check with your doctor about this) Spinal disc disease or arthritis Stress Pain can also be related to , or illness like appendicitis, bladder or kidney infections, pelvic infections, and many other things. Acute back pain usually gets better in 1 to 2 weeks. Back pain related to disk disease, arthritis in the spinal joints or spinal stenosis (narrowing of the spinal canal) can become chronic and last for months or years. Unless you had a physical injury (for example, a car accident or fall) X-rays are usually not needed for the initial evaluation of back pain. If pain continues and does not respond to medical treatment, X-rays and other tests may be needed. Home care Try these home care recommendations: When in bed, try to find a position of comfort. A firm mattress is best. Try lying flat on your back with pillows under your knees. You can also try lying on your side with your knees bent up towards your chest and a pillow between your knees. At first, do not try to stretch out the sore spots. If there is a strain, it is not like the good soreness you get after exercising without an injury. In this case, stretching may make it worse. Don't sit for long periods, as in a long car ride or during other travel. This puts more stress on the lower back than standing or walking. During the first 24 to 72 hours after an acute injury or flare up of chronic back pain, apply an ice pack to the painful area for 20 minutes and then remove it for 20 minutes. Do this over a period of 60 to 90 minutes or several times a day. This will reduce swelling and pain. Wrap the ice pack in a thin towel or plastic to protect your skin. You can start with ice, then switch to heat. Heat (hot shower, hot bath, or heating pad) reduces pain and works well for muscle spasms. Heat can be applied to the painful area for 20 minutes then remove it for 20 minutes. Do this over a period of 60 to 90 minutes or several times a day. Do not sleep on a heating pad. It can lead to skin monet or tissue damage. You can alternate ice and heat therapy. Talk with your doctor about the best treatment for your back pain. Therapeutic massage can help relax the back muscles without stretching them. Be aware of safe lifting methods and do not lift anything without stretching first. Medicines Talk to your doctor before using medicine, especially if you have other medical problems or are taking other medicines. You may use ztga-rlo-fqcypjf medicine as directed on the bottle to control pain, unless another pain medicine was prescribed. If you have chronic conditions like diabetes, liver or kidney disease, stomach ulcers, or gastrointestinal bleeding, or are taking blood thinners, talk to your doctor before taking any medicine. Be careful if you are given a prescription medicines, narcotics, or medicine for muscle spasms. They can cause drowsiness, affect your coordination, reflexes, and judgement. Do not drive or operate heavy machinery. Follow-up care Follow up with your healthcare provider, or as advised. A radiologist will review any X-rays that were taken. Your provide will notify you of any new findings that may affect your care. Call 911 Call 911 if any of the following occur: Trouble breathing Confusion Very drowsy or trouble awakening Fainting or loss of consciousness Rapid or very slow heart rate Loss of bowel or bladder control When to seek medical advice Call your healthcare provider right away if any of these occur: Pain becomes worse or spreads to your legs Weakness or numbness in one or both legs Numbness in the groin or genital area 9436-1932 [employer]. [address] [place] [address]. All rights reserved. This information is not intended as a substitute for professional medical care. Always follow your healthcare professional's instructions. Additional Information VACCINATE! IT SAVES LIVES! Members of the community who have not yet received the COVID-19 vaccine and would like to receive it can visit one of [facility] vaccine clinics. There are many vaccine clinic locations within the [facility]. For locations and available times, please visit [email or web address] It is important to note that some COVID mobile vaccine clinics are held outdoors and may be canceled in rainy or stormy conditions. To learn more about pediatric vaccinations (ages 5-11), we invite you to visit the [facility] webpage. https://www.[email or web address].org/pag es/5239-Jvxsg-Bpckonnbhnr-Frequent jq-Leoaf-Bkjqormen.html To learn more about the COVID-19 vaccine, we invite you to visit the CDC website for a list of frequently asked questions. https://www.cdc.gov/coronavirus/-ncov/vaccines/faq.html [employer] Patient Portal Access Instructions: Stay connected with your healthcare team and access your personal medical information anytime with the [employer] Patient Portal. If you would like a full copy of your medical records please contact the [facility] Medical Records Department Tuesday through Tuesday between 8a.m. and 4:30p.m. Please follow the directions below to access the portal: 1.Access the email account you provided upon registration to the [facility].2.Look for an invitation email from [facility].3.Open the email and access the invitation link: Accept Invitation to [employer]4.Fill in the required worrell to create your account. Sign into [email or web address] with your username and password that you created in the above steps to stay up to date. You can then view a summary of results, a summary of your visits, and the ability to download your summaries to your computer or send the information securely to a physician. Remember that your healthcare information is confidential, so carefully consider who you will allow to register on the [facility] Patient Portal for access to your information. You can also access the [employer] Patient Portal on the [facility] micah. Simply click on Health Records under Health Data and then click on the [employer] logo. HOW TO SAFELY DISPOSE OF PRESCRIPTION MEDICATIONS Please use one of the following methods to safely dispose of your unused medications. 1.Use a drug disposal kit: the drug disposal pouch allows you to safely discard your old and unused drugs. Ask your nurse to give you one when you are discharged.2.Visit a local take-back location: Many local pharmacies and police departments have programs that collect old and unwanted prescription drugs. Call your local pharmacy or go to http://[employer]/3H1Eg9q to find one close to you.3.Make use of household items: Use cat litter or old coffee grounds to dispose medications if other options are not available. Mix your drugs with these household products, seal them in an airtight container and throw it into the garbage. Call [facility]: [phone] to be sure your drugs can be disposed of in this way. Some medicines may require a different approach.4.Never flush your medications down the toilet. IF YOU HAVE BEEN PRESCRIBED AN OPIOIDS FOR PAIN If you have been prescribed an opioid (such as hydrocodone, oxycodone or morphine), it is critical to understand the possible side effects and risks of opioid pain medications. Even when taken as directed, opioids can have several side effects including: Tolerance, meaning you might need to take more of a medication for the same pain relief. Nausea, vomiting and/or constipation. Sleepiness, dizziness, dry mouth, confusion, depression or itching. Physical dependence, meaning you have withdrawal symptoms when a medication is stopped ? this can develop within a few days. KNOW YOUR RESPONSIBILITIES It is important to know exactly how much and how often to take the opioid pain medications you are prescribed. Never take opioids in higher amounts or more often than prescribed. Do not combine opioids with alcohol or other drugs that cause drowsiness, such as benzodiazepines, also known as benzos, including diazepam and alprazolam, muscle relaxants or sleep aids. Never sell or share prescription opioids. This is illegal. Store opioids in a secure place and out of reach of others (including children, family, friends and visitors). The last page(s) of this document has been signed and retained as a CHART COPY Signatures Patient Education Materials Fracture, Foot Back Pain (Acute or Chronic) Medication Leaflets dexamethasone (oral) My discharge plan and instructions have been reviewed and explained to me and ILUIS JEREMIAH M understand my current condition and have read and understand these discharge instructions. I have received a written copy of the plan/instructions. If I have questions, I am aware that I should contact my doctor. 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 HISTORY: ORDERING SYSTEM PROVIDED HISTORY: Reason for Exam: pain Fall yesterday, pain to dorsal aspect FINDINGS: There is a fracture of the 3rd metatarsal head/metadiaphysis with adjacent calcified endosteal callus formation. There is also a fracture of the proximal 2nd metatarsal metadiaphysis with slight obscuration of the fracture line and adjacent callus bridging/formation as best seen on the oblique view. No other fracture is identified. No dislocation. No radiopaque foreign body. IMPRESSION: Healing fractures with callus formation of the 2nd and 3rd metatarsals as described above. Interpreted by: Valery Winkler Preliminary Report By: Valery Winkler Electronically signed By Valery Winkler Dictated Date: 09/24/2022 11:08:37 PM Prelim Date: 09/24/2022 11:17:39 PM Sign Date: 09/24/2022 11:17:39 PM Ordering Provider: [facility] 09-24-2022 Note ORIGINAL EXAMINATION: 3 XRAY VIEWS OF THE LUMBAR SPINE 09/24/2022 10:52 pm COMPARISON: None. HISTORY: ORDERING SYSTEM PROVIDED HISTORY: Reason for Exam: back pain Fall yesterday, left hip pain FINDINGS: There are 5 non rib-bearing lumbar type vertebral bodies. No acute fracture or traumatic malalignment. The vertebral body heights are maintained. Mild degenerative changes including disc space narrowing, facet arthropathy, and marginal osteophytes is most notable at the L4-L5 and L5-S1 levels. IMPRESSION: No acute radiographic findings of the lumbar spine. Interpreted by: Valery Winkler Preliminary Report By: Valery Winkler Electronically signed By Valery Winkler Dictated Date: 09/24/2022 11:06:25 PM Prelim Date: 09/24/2022 11:08:26 PM Sign Date: 09/24/2022 11:08:26 PM Ordering Provider: [facility] 09-24-2022 Note ORIGINAL EXAMINATION: 2 XRAY VIEWS OF THE LEFT HIP. 2 VIEWS OF THE PELVIS. COMPARISON: None. HISTORY: ORDERING SYSTEM PROVIDED HISTORY: Reason for Exam: pain Fall yesterday, left hip pain FINDINGS: The pelvic ring is intact. No acute fracture or dislocation is identified. The sacroiliac joints and pubic symphysis are unremarkable. No significant degenerative changes of the bilateral hip joints. IMPRESSION: No acute fracture or dislocation. Interpreted by: Valery Winkler Preliminary Report By: Valery Winkler Electronically signed By Valery Winkler Dictated Date: 09/24/2022 11:02:47 PM Prelim Date: 09/24/2022 11:04:24 PM Sign Date: 09/24/2022 11:04:24 PM Ordering Provider: [facility] 09-24-2022 Note ORIGINAL EXAMINATION: THREE XRAY VIEWS OF THE RIGHT FOOT 09/24/2022 10:58 pm COMPARISON: None. HISTORY: ORDERING SYSTEM PROVIDED HISTORY: Reason for Exam: pain Fall yesterday, pain to dorsal aspect FINDINGS: There is a fracture of the 3rd metatarsal head/metadiaphysis with adjacent calcified endosteal callus formation. There is also a fracture of the proximal 2nd metatarsal metadiaphysis with slight obscuration of the fracture line and adjacent callus bridging/formation as best seen on the oblique view. No other fracture is identified. No dislocation. No radiopaque foreign body. IMPRESSION: Healing fractures with callus formation of the 2nd and 3rd metatarsals as described above. Interpreted by: Valery Winkler Preliminary Report By: Valery Winkler Electronically signed By Valery Winkler Dictated Date: 09/24/2022 11:08:37 PM Prelim Date: 09/24/2022 11:17:39 PM Sign Date: 09/24/2022 11:17:39 PM Ordering Provider: [facility] 09-24-2022 Note ORIGINAL EXAMINATION: 3 XRAY VIEWS OF THE LUMBAR SPINE 09/24/2022 10:52 pm COMPARISON: None. HISTORY: ORDERING SYSTEM PROVIDED HISTORY: Reason for Exam: back pain Fall yesterday, left hip pain FINDINGS: There are 5 non rib-bearing lumbar type vertebral bodies. No acute fracture or traumatic malalignment. The vertebral body heights are maintained. Mild degenerative changes including disc space narrowing, facet arthropathy, and marginal osteophytes is most notable at the L4-L5 and L5-S1 levels. IMPRESSION: No acute radiographic findings of the lumbar spine. Interpreted by: Valery Winkler Preliminary Report By: Valery Winkler Electronically signed By Valery Winkler Dictated Date: 09/24/2022 11:06:25 PM Prelim Date: 09/24/2022 11:08:26 PM Sign Date: 09/24/2022 11:08:26 PM Ordering Provider: [facility] 09-24-2022 Note ORIGINAL EXAMINATION: 2 XRAY VIEWS OF THE LEFT HIP. 2 VIEWS OF THE PELVIS. COMPARISON: None. HISTORY: ORDERING SYSTEM PROVIDED HISTORY: Reason for Exam: pain Fall yesterday, left hip pain FINDINGS: The pelvic ring is intact. No acute fracture or dislocation is identified. The sacroiliac joints and pubic symphysis are unremarkable. No significant degenerative changes of the bilateral hip joints. IMPRESSION: No acute fracture or dislocation. Interpreted by: Valery Winkler Preliminary Report By: Valery Winkler Electronically signed By Valery Winkler Dictated Date: 09/24/2022 11:02:47 PM Prelim Date: 09/24/2022 11:04:24 PM Sign Date: 09/24/2022 11:04:24 PM Ordering Provider: [facility] 09-19-2022 Nurse Note Patient restless and agitated throughout night, medicated multiple times with ativan per [facility] orders. This morning patient expressed that you guys aren't doing anything for me, I want my medical marijuana, I want to go home. Explained to patient his abnormal electrolyte values and current treatment plan for his pneumonia. Patient spoke on phone with mother who encouraged him to stay. band leader hospitalist made aware of patient verbalizing he wants AMA papers. Security called and at the bedside to help de-escalate patient. Patient was adamant that he was leaving. PIV removed, heart monitor removed, patient was presented with AMA papers and was walked to exit by security. [facility] 09-19-2022 Nurse Note Patient restless and agitated throughout night, medicated multiple times with ativan per [facility]WA orders. This morning patient expressed that you guys aren't doing anything for me, I want my medical marijuana, I want to go home. Explained to patient his abnormal electrolyte values and current treatment plan for his pneumonia. Patient spoke on phone with mother who encouraged him to stay. band leader hospitalist made aware of patient verbalizing he wants AMA papers. Security called and at the bedside to help de-escalate patient. Patient was adamant that he was leaving. PIV removed, heart monitor removed, patient was presented with AMA papers and was walked to exit by security. documented in this encounter [facility] [place] 09-18-2022 History and physical note Images from the original note were not included. Attending History and Physical Admit Date: 09/18/2022 PCP: KAY KERR CHIEF COMPLAINT: chest pain HISTORY OF PRESENT ILLNESS: El is a 41 y.o. male with past medical history below who presents with with wheezing, shortness of breath. Was recently discharged from the hospital with diagnosis of pneumonia left AMA. Was also recently diagnosed with emphysema. Of note as well over the last 3 days has been complaining of auditory and visual hallucinations. He states he has had this before but has not been as severe. He is a daily drinker 10-15 shots a day with last drink this morning and also uses recreational marijuana. Denies any methamphetamine use. He also endorses associated chest tightness. Has history of hypertension and CAD status post 1 stent 1 year ago. 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 Drug abuse ([facility]) ([facility]) Gastroenteritis 11/23/2018 Last Assessment & Plan: Predominantly vomiting; ?food poisoning vs viral gastroenteritis IV hydration PRN antiemetics Hyperlipidemia Hypertension Iritis of left eye 09/20/2018 [facility] ([facility]) ([facility]) Opioid dependence, uncomplicated ([facility]) 10/27/2021 Presence of stent in right coronary artery 10/02/2021 Sciatica Spinal stenosis, lumbar Tobacco abuse Past Surgical History: Past Surgical History: Procedure Laterality Date ARM SURGERY (HISTORICAL) metal rods in adam upper extremities BACK SURGERY COLONOSCOPY CORONARY ANGIOPLASTY WITH STENT PLACEMENT 09/23/2021 DORIS to proximal RCA FRACTURE SURGERY Social History: Social History Socioeconomic History Marital status: Single Spouse name: Not on file Number of children: Not on file Years of education: Not on file Highest education level: Not on file Occupational History Not on file Tobacco Use Smoking status: Every Day Packs/day: 2.00 Types: Cigarettes Smokeless tobacco: Current Vaping Use Vaping Use: Never used Substance and Sexual Activity Alcohol use: Yes Comment: 15 shots of whiskey Drug use: Yes Types: Marijuana Comment: uses methadone, also buys pain meds on the streets Sexual activity: Not on file Other Topics Concern Not on file Social History Narrative Not on file Social Determinants of Health Financial Resource Strain: Not on file Food Insecurity: Not on file Transportation Needs: No Transportation Needs Lack of Transportation (Medical): No Lack of Transportation (Non-Medical): No Physical Activity: Not on file Stress: Not on file Social Connections: Not on file Intimate Partner Violence: Not At Risk Fear of Current or Ex-Partner: No Emotionally Abused: No Physically Abused: No Sexually Abused: No Housing Stability: Low Risk Unable to Pay for Housing in the Last Year: No Number of Places Lived in the Last Year: 1 Unstable Housing in the Last Year: No Family History: Family History Problem Relation Name Age of Onset Atrial fibrillation Sister Hyperlipidemia Mother Obesity Mother Asthma Mother Depression Mother Obesity Sister Depression Sister Arthritis Mother High Blood Pressure Maternal Grandmother Diabetes Mother Asthma Maternal Grandmother Substance Abuse Sister Diabetes Father Stroke Paternal Grandfather Arthritis Sister High Blood Pressure Mother Vision loss Maternal Grandmother Diabetes Maternal Grandmother Stroke Maternal Grandmother Arthritis Maternal Grandfather Arthritis Maternal Grandmother Cancer Maternal Grandfather Depression Maternal Grandmother Cancer Brother Diabetes Paternal Grandfather Stroke Paternal Grandmother Diabetes Maternal Grandfather Obesity Maternal Grandmother Depression Maternal Grandfather Arthritis Paternal Grandmother Vision loss Maternal Grandfather Depression Paternal Grandmother Arthritis Paternal Grandfather Medications Prior to Admission: No current facility-administered medications on file prior to encounter. Current Outpatient Medications on File Prior to Encounter Medication Sig Dispense Refill aspirin 81 MG EC tablet Take 81 mg by mouth in the morning. carvedilol (Coreg) 12.5 MG tablet lidocaine (Lidoderm) 5 % patch Apply 1 patch topically daily. Remove & discard patch within 12 hours or as directed by MD. 15 patch 0 LISINOPRIL PO Take by mouth. METHADONE HCL PO Take by mouth. methocarbamol (Robaxin) 500 MG tablet Take 2 tablets (1,000 mg) by mouth in the morning and 2 tablets (1,000 mg) at noon and 2 tablets (1,000 mg) before bedtime. Do all this for 10 days. 60 tablet 0 Ticagrelor (BRILINTA PO) Take by mouth. Allergies: Allergies Allergen Reactions Nickel Rash REVIEW OF SYSTEMS: Respiratory: Positive for cough, chest tightness, shortness of breath and wheezing. Psychiatric/Behavioral: Positive for hallucinations. The patient is nervous/anxious. Pertinent positives and negatives as per HPI. Vitals: BP 111/85 (Patient Position: Sitting) Pulse 101 Temp (!) 35.6 C (96 F) (Temporal) Resp 18 SpO2 93% BMI Classification: Pulse Ox: SpO2 Av % Min: 87 % Max: 100 % Supplemental O2: O2 Flow Rate (L/min): 4 L/min PHYSICAL EXAM: Physical Exam General: Sleepy easily arousable to voice, in no acute distress HEENT: PERRLA, EOMI, anicteric Neck: supple, no JVD Chest: BLAE+, basal crackles+, rhonchi+ CVS: S1+, S2+, no m/r/g Abdomen: soft, ND, NT, BS+ STORYBOARD ARTIST: AAOx3, no focal deficit Ext: pulse 2+, no edema DATA: CBC: Recent Labs 09/16/22 0103 09/18/22 1528 WBC 13.1* 11.1* RBC 4.27* 4.15* HGB 13.0 12.5* HCT 37.8* 37.3* MCV 88.5 89.8 RDW 15.0* 15.8* PLT 434 500* BMP: Recent Labs 09/16/22 0103 09/18/22 1528 NA 138 136 K 2.9* 3.1* CL 99 101 CO2 33* 28 BUN 9 18 CREATININE 0.63* 0.71 GLUCOSE 110* 83 CALCIUM 8.3* 8.2* ANIONGAP 6 8 LIVER PROFILE: Recent Labs 09/18/22 1528 AST 56* ALT 21 BILITOT 0.5 ALKPHOS 154* PROT 6.9 PT/INR: No results for input(s): PROTIME, INR in the last 72 hours. CARDIAC ENZYMES: Recent Labs 09/16/22 0103 09/16/22 1043 09/18/22 1528 TROPONINI <0.012 <0.012 <0.012 Procalcitonin: No results found for: PROCAL Urine Culture: No results found for this or any previous visit. COVID-19 PCR: No results for input(s): COVID19 in the last 72 hours. I reviewed: [x] laboratory results [x] radiographic results At the time of today's encounter. Pt was advised of the results. IMPRESSION: # Alcohol use disorder # probable pneumonia, concern for aspiration # Hallucinations # possible acute exacerbation of COPD - CXR: Bilateral perihilar interstitial opacities or infiltrate(s), which may represent acute inflammatory process - CIWA - on Luminal, taper - Steroids and Duonebs - start unasyn and doxycycline - Psych consult - ADM consult # CAD s/p PCI # HTN # Dyslipidemia # chronic low back pain - continue home meds Medical Decision Making: -Discussed with ED provider and agree with their plan for admission -PT/OT eval/increase activity -am labs, replace lytes prn -vitals per routine -home meds as ordered -DVT prophylaxis: [x] Lovenox [] Heparin [] SCDs [x] Encourage ambulation [] Already on Anticoagulation Extended Emergency Contact Information Primary Emergency Contact: Ruth Maurer Relation: Child Secondary Emergency Contact: Louise Smith Mobile Relation: Sister Preferred language: Indian Toys Inspector needed? No Code status: Prior -see below for additional orders, further recommendations to follow Orders Placed This Encounter Procedures COVID-19, Flu A/B, and RSV Combo XR chest 1 view CBC auto differential Comprehensive metabolic panel Drug screen panel, emergency Ethanol CPK Urinalysis Complete with reflex to Culture Troponin I Blood gas, venous (ACH and SBH) Complete Urinalysis Adult diet Regular Vital Signs Vital Signs Notify Provider (Other) Alcohol and or drug assessment Search patient Telemetry monitoring for Other Indication; hypoxia ECG 12 lead Insert peripheral IV Admit to inpatient Seizure precautions Fall precautions Please forward a copy of this H&P to the patient's PCP. Thank you. [facility] Work Phone: 09-18-2022 History and physical note Images from the original note were not included. Attending History and Physical Admit Date: 09/18/2022 PCP: KAY KERR CHIEF COMPLAINT: chest pain HISTORY OF PRESENT ILLNESS: El is a 41 y.o. male with past medical history below who presents with with wheezing, shortness of breath. Was recently discharged from the hospital with diagnosis of pneumonia left AMA. Was also recently diagnosed with emphysema. Of note as well over the last 3 days has been complaining of auditory and visual hallucinations. He states he has had this before but has not been as severe. He is a daily drinker 10-15 shots a day with last drink this morning and also uses recreational marijuana. Denies any methamphetamine use. He also endorses associated chest tightness. Has history of hypertension and CAD status post 1 stent 1 year ago. 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 Drug abuse ([facility]) ([facility]) Gastroenteritis 11/23/2018 Last Assessment & Plan: Predominantly vomiting; ?food poisoning vs viral gastroenteritis IV hydration PRN antiemetics Hyperlipidemia Hypertension Iritis of left eye 09/20/2018 [facility]) ([facility]) Opioid dependence, uncomplicated ([facility]) 10/27/2021 Presence of stent in right coronary artery 10/02/2021 Sciatica Spinal stenosis, lumbar Tobacco abuse Past Surgical History: Past Surgical History: Procedure Laterality Date ARM SURGERY (HISTORICAL) metal rods in adam upper extremities BACK SURGERY COLONOSCOPY CORONARY ANGIOPLASTY WITH STENT PLACEMENT 09/23/2021 DORIS to proximal RCA FRACTURE SURGERY Social History: Social History Socioeconomic History Marital status: Single Spouse name: Not on file Number of children: Not on file Years of education: Not on file Highest education level: Not on file Occupational History Not on file Tobacco Use Smoking status: Every Day Packs/day: 2.00 Types: Cigarettes Smokeless tobacco: Current Vaping Use Vaping Use: Never used Substance and Sexual Activity Alcohol use: Yes Comment: 15 shots of whiskey Drug use: Yes Types: Marijuana Comment: uses methadone, also buys pain meds on the streets Sexual activity: Not on file Other Topics Concern Not on file Social History Narrative Not on file Social Determinants of Health Financial Resource Strain: Not on file Food Insecurity: Not on file Transportation Needs: No Transportation Needs Lack of Transportation (Medical): No Lack of Transportation (Non-Medical): No Physical Activity: Not on file Stress: Not on file Social Connections: Not on file Intimate Partner Violence: Not At Risk Fear of Current or Ex-Partner: No Emotionally Abused: No Physically Abused: No Sexually Abused: No Housing Stability: Low Risk Unable to Pay for Housing in the Last Year: No Number of Places Lived in the Last Year: 1 Unstable Housing in the Last Year: No Family History: Family History Problem Relation Name Age of Onset Atrial fibrillation Sister Hyperlipidemia Mother Obesity Mother Asthma Mother Depression Mother Obesity Sister Depression Sister Arthritis Mother High Blood Pressure Maternal Grandmother Diabetes Mother Asthma Maternal Grandmother Substance Abuse Sister Diabetes Father Stroke Paternal Grandfather Arthritis Sister High Blood Pressure Mother Vision loss Maternal Grandmother Diabetes Maternal Grandmother Stroke Maternal Grandmother Arthritis Maternal Grandfather Arthritis Maternal Grandmother Cancer Maternal Grandfather Depression Maternal Grandmother Cancer Brother Diabetes Paternal Grandfather Stroke Paternal Grandmother Diabetes Maternal Grandfather Obesity Maternal Grandmother Depression Maternal Grandfather Arthritis Paternal Grandmother Vision loss Maternal Grandfather Depression Paternal Grandmother Arthritis Paternal Grandfather Medications Prior to Admission: No current facility-administered medications on file prior to encounter. Current Outpatient Medications on File Prior to Encounter Medication Sig Dispense Refill aspirin 81 MG EC tablet Take 81 mg by mouth in the morning. carvedilol (Coreg) 12.5 MG tablet lidocaine (Lidoderm) 5 % patch Apply 1 patch topically daily. Remove & discard patch within 12 hours or as directed by MD. 15 patch 0 LISINOPRIL PO Take by mouth. METHADONE HCL PO Take by mouth. methocarbamol (Robaxin) 500 MG tablet Take 2 tablets (1,000 mg) by mouth in the morning and 2 tablets (1,000 mg) at noon and 2 tablets (1,000 mg) before bedtime. Do all this for 10 days. 60 tablet 0 Ticagrelor (BRILINTA PO) Take by mouth. Allergies: Allergies Allergen Reactions Nickel Rash REVIEW OF SYSTEMS: Respiratory: Positive for cough, chest tightness, shortness of breath and wheezing. Psychiatric/Behavioral: Positive for hallucinations. The patient is nervous/anxious. Pertinent positives and negatives as per HPI. Vitals: BP 111/85 (Patient Position: Sitting) Pulse 101 Temp (!) 35.6 C (96 F) (Temporal) Resp 18 SpO2 93% BMI Classification: Pulse Ox: SpO2 Av % Min: 87 % Max: 100 % Supplemental O2: O2 Flow Rate (L/min): 4 L/min PHYSICAL EXAM: Physical Exam General: Sleepy easily arousable to voice, in no acute distress HEENT: PERRLA, EOMI, anicteric Neck: supple, no JVD Chest: BLAE+, basal crackles+, rhonchi+ CVS: S1+, S2+, no m/r/g Abdomen: soft, ND, NT, BS+ STORYBOARD ARTIST: AAOx3, no focal deficit Ext: pulse 2+, no edema DATA: CBC: Recent Labs 09/16/22 0103 09/18/22 1528 WBC 13.1* 11.1* RBC 4.27* 4.15* HGB 13.0 12.5* HCT 37.8* 37.3* MCV 88.5 89.8 RDW 15.0* 15.8* PLT 434 500* BMP: Recent Labs 09/16/22 0103 09/18/22 1528 NA 138 136 K 2.9* 3.1* CL 99 101 CO2 33* 28 BUN 9 18 CREATININE 0.63* 0.71 GLUCOSE 110* 83 CALCIUM 8.3* 8.2* ANIONGAP 6 8 LIVER PROFILE: Recent Labs 09/18/22 1528 AST 56* ALT 21 BILITOT 0.5 ALKPHOS 154* PROT 6.9 PT/INR: No results for input(s): PROTIME, INR in the last 72 hours. CARDIAC ENZYMES: Recent Labs 09/16/22 0103 09/16/22 1043 09/18/22 1528 TROPONINI <0.012 <0.012 <0.012 Procalcitonin: No results found for: PROCAL Urine Culture: No results found for this or any previous visit. COVID-19 PCR: No results for input(s): COVID19 in the last 72 hours. I reviewed: [x] laboratory results [x] radiographic results At the time of today's encounter. Pt was advised of the results. IMPRESSION: # Alcohol use disorder # probable pneumonia, concern for aspiration # Hallucinations # possible acute exacerbation of COPD - CXR: Bilateral perihilar interstitial opacities or infiltrate(s), which may represent acute inflammatory process - CIWA - on Luminal, taper - Steroids and Duonebs - start unasyn and doxycycline - Psych consult - ADM consult # CAD s/p PCI # HTN # Dyslipidemia # chronic low back pain - continue home meds Medical Decision Making: -Discussed with ED provider and agree with their plan for admission -PT/OT eval/increase activity -am labs, replace lytes prn -vitals per routine -home meds as ordered -DVT prophylaxis: [x] Lovenox [] Heparin [] SCDs [x] Encourage ambulation [] Already on Anticoagulation Extended Emergency Contact Information Primary Emergency Contact: Ruth Maurer Relation: Child Secondary Emergency Contact: Louise Smith Mobile Relation: Sister Preferred language: Indian Toys Inspector needed? No Code status: Prior -see below for additional orders, further recommendations to follow Orders Placed This Encounter Procedures COVID-19, Flu A/B, and RSV Combo XR chest 1 view CBC auto differential Comprehensive metabolic panel Drug screen panel, emergency Ethanol CPK Urinalysis Complete with reflex to Culture Troponin I Blood gas, venous (ACH and SBH) Complete Urinalysis Adult diet Regular Vital Signs Vital Signs Notify Provider (Other) Alcohol and or drug assessment Search patient Telemetry monitoring for Other Indication; hypoxia ECG 12 lead Insert peripheral IV Admit to inpatient Seizure precautions Fall precautions Please forward a copy of this H&P to the patient's PCP. Thank you. documented in this encounter [facility] [place] 09-18-2022 Emergency department Note Guided family back Sylvia Herron, EMT 09/18/22 [id number] [facility] [place] 09-18-2022 Emergency department Note Guided family back GÉNESIS Hernandez 09/18/22 1608 EMERGENCY DEPARTMENT ENCOUNTER Pt Name: El Smith Birthdate 1980 Date of evaluation: 09/18/2022 ED Provider: Ene Sarabia DO CHIEF COMPLAINT Chief Complaint Patient presents with Shortness of Breath HISTORY OF PRESENT ILLNESS (Location/Symptom, Timing/Onset, Context/Setting, Quality, Duration, Modifying Factors, Severity) Note limiting factors. I wore appropriate PPE for the entirety of this encounter. HPI 41-year-old presents emergency room today with wheezing, shortness of breath. Was recently discharged from the hospital with diagnosis of pneumonia left AMA. Was also recently diagnosed with emphysema. Of note as well over the last 3 days has been complaining of auditory and visual hallucinations. He states he has had this before but has not been as severe. He is a daily drinker 10-15 shots a day with last drink this morning and also uses recreational marijuana. Denies any methamphetamine use. He also endorses associated chest tightness. Has history of hypertension and CAD status post 1 stent 1 year ago. Nursing Notes were reviewed. Limitations to history: None Outside historians:None REVIEW OF SYSTEMS Review of Systems Respiratory: Positive for cough, chest tightness, shortness of breath and wheezing. Psychiatric/Behavioral: Positive for hallucinations. The patient is nervous/anxious. Pertinent positives and negatives as per HPI. 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 Drug abuse (CMS/HCC) (HCC) Gastroenteritis 11/23/2018 Last Assessment & Plan: Predominantly vomiting; ?food poisoning vs viral gastroenteritis IV hydration PRN antiemetics Hyperlipidemia Hypertension Iritis of left eye 09/20/2018 [facility] ([facility]) (HCC) Opioid dependence, uncomplicated ([facility]) 10/27/2021 Presence of stent in right coronary artery 10/02/2021 Sciatica Spinal stenosis, lumbar Tobacco abuse SURGICAL HISTORY Past Surgical History: Procedure Laterality Date ARM SURGERY (HISTORICAL) metal rods in adam upper extremities BACK SURGERY COLONOSCOPY CORONARY ANGIOPLASTY WITH STENT PLACEMENT 09/23/2021 DORIS to proximal RCA FRACTURE SURGERY CURRENT MEDICATIONS Current Discharge Medication List CONTINUE these medications which have NOT CHANGED Details aspirin 81 MG EC tablet Take 81 mg by mouth in the morning. carvedilol (Coreg) 12.5 MG tablet lidocaine (Lidoderm) 5 % patch Apply 1 patch topically daily. Remove & discard patch within 12 hours or as directed by MD. Qty: 15 patch, Refills: 0 LISINOPRIL PO Take by mouth. METHADONE HCL PO Take by mouth. methocarbamol (Robaxin) 500 MG tablet Take 2 tablets (1,000 mg) by mouth in the morning and 2 tablets (1,000 mg) at noon and 2 tablets (1,000 mg) before bedtime. Do all this for 10 days. Qty: 60 tablet, Refills: 0 Ticagrelor (BRILINTA PO) Take by mouth. ALLERGIES Nickel FAMILY HISTORY Family History Problem Relation Name Age of Onset Atrial fibrillation Sister Hyperlipidemia Mother Obesity Mother Asthma Mother Depression Mother Obesity Sister Depression Sister Arthritis Mother High Blood Pressure Maternal Grandmother Diabetes Mother Asthma Maternal Grandmother Substance Abuse Sister Diabetes Father Stroke Paternal Grandfather Arthritis Sister High Blood Pressure Mother Vision loss Maternal Grandmother Diabetes Maternal Grandmother Stroke Maternal Grandmother Arthritis Maternal Grandfather Arthritis Maternal Grandmother Cancer Maternal Grandfather Depression Maternal Grandmother Cancer Brother Diabetes Paternal Grandfather Stroke Paternal Grandmother Diabetes Maternal Grandfather Obesity Maternal Grandmother Depression Maternal Grandfather Arthritis Paternal Grandmother Vision loss Maternal Grandfather Depression Paternal Grandmother Arthritis Paternal Grandfather SOCIAL HISTORY Social History Socioeconomic History Marital status: Single Tobacco Use Smoking status: Every Day Packs/day: 2.00 Types: Cigarettes Smokeless tobacco: Current Vaping Use Vaping Use: Never used Substance and Sexual Activity Alcohol use: Yes Comment: 15 shots of whiskey Drug use: Yes Types: Marijuana Comment: uses methadone, also buys pain meds on the streets Social Determinants of Health Transportation Needs: No Transportation Needs Lack of Transportation (Medical): No Lack of Transportation (Non-Medical): No Intimate Partner Violence: Not At Risk Fear of Current or Ex-Partner: No Emotionally Abused: No Physically Abused: No Sexually Abused: No Housing Stability: Low Risk Unable to Pay for Housing in the Last Year: No Number of Places Lived in the Last Year: 1 Unstable Housing in the Last Year: No SCREENINGS PHYSICAL EXAM ED Triage Vitals Temp Heart Rate Resp BP 09/18/22 1423 09/18/22 1423 09/18/22 1423 09/18/22 1423 (!) 35.6 C (96 F) (!) 117 20 124/87 SpO2 Temp Source Heart Rate Source Patient Position 09/18/22 1423 09/18/22 1423 09/18/22 1423 09/18/22 1802 (!) 87 % Temporal Monitor Sitting BP Location FiO2 (%) 09/18/222030 -- Left arm Physical Exam Vitals and nursing note reviewed. Constitutional: General: He is not in acute distress. Appearance: He is well-developed. HENT: Head: Normocephalic and atraumatic. Eyes: Conjunctiva/sclera: Conjunctivae normal. Cardiovascular: Rate and Rhythm: Normal rate and regular rhythm. Heart sounds: No murmur heard. Pulmonary: Effort: Pulmonary effort is normal. No respiratory distress. Breath sounds: Wheezing present. Abdominal: Palpations: Abdomen is soft. Tenderness: There is no abdominal tenderness. Musculoskeletal: General: No swelling. Cervical back: Neck supple. Skin: General: Skin is warm and dry. Capillary Refill: Capillary refill takes less than 2 seconds. Neurological: Mental Status: He is alert. Psychiatric: Attention and Perception: He perceives auditory and visual hallucinations. Mood and Affect: Mood is anxious. DIAGNOSTIC RESULTS Procedures/EKG: EKG was reviewed by myself. Physician EKG interpretation can be found in [facility] RADIOLOGY (Per Emergency Physician): Interpretation per the Radiologist below, if available at the time of this note: XR chest 1 view Final Result 1. Bilateral perihilar interstitial opacities or infiltrate(s), which may represent acute inflammatory process, slightly decreased in the interval. Follow-up to resolution advised. Report Dictated on Electronically Signed By: Tk Trinh Electronically Signed Date/Time: 09/18/2022 3:20 PM EDT ED BEDSIDE ULTRASOUND: Performed by ED Physician - none LABS: Labs Reviewed CBC WITH AUTO DIFFERENTIAL - Abnormal Result Value Auto WBC 11.1 (*) RBC 4.15 (*) Hemoglobin 12.5 (*) Hematocrit 37.3 (*) MCV 89.8 MCH 30.2 MCHC 33.7 RDW 15.8 (*) Platelets 500 (*) MPV 6.9 (*) nRBC 0.0 Neutrophils Relative 69.0 Lymphocytes Relative 23.1 Monocytes Relative 5.1 Eosinophils Relative 1.1 Basophils Relative 1.7 Neutrophils Absolute 7.6 (*) Lymphocytes Absolute 2.6 Monocytes Absolute 0.6 Eosinophils Absolute 0.1 Basophils Absolute 0.2 COMPREHENSIVE METABOLIC PANEL - Abnormal SODIUM 136 POTASSIUM 3.1 (*) CHLORIDE 101 CARBON DIOXIDE 28 ANION GAP 8 UREA NITROGEN 18 CREATININE 0.71 GLUCOSE 83 CALCIUM 8.2 (*) AST (SGOT) 56 (*) ALT 21 ALKALINE PHOSPHATASE 154 (*) ALBUMIN 3.5 BILIRUBIN, TOTAL 0.5 TOTAL PROTEIN 6.9 eGFR >90.0 COMPLETE URINALYSIS - Abnormal Color, Urine Yellow Clarity, Urine Clear pH, Urine 6.5 Leukocytes, Urine 25 (*) Nitrite, Urine Negative Protein, Urine 70 (*) Glucose, Urine Normal Bilirubin, Urine Negative Ketones, Urine Negative Urobilinogen, Urine Normal Blood, Urine Negative RBC, Urine 0-2 WBC, Urine 3-5 Squamous Epithelial, Urine 0-2 Bacteria, Urine Few (*) Mucus, Urine Many (*) Hyaline Casts, Urine 0-2 (*) SPECIFIC GRAVITY OF URINE (NUMERIC) 1.027 POCT VENOUS BLOOD GAS UNSOLICITED RESULTS - Abnormal pH, Venous 7.431 (*) pCO2, Venous 41.8 pO2, Venous 45.3 TCO2, Venous 29.1 (*) HCO3, Venous 27.8 (*) Base Excess, Venous 2.9 SO2, Venous 82.1 (*) FIO2 Narrative: Performed by: Deandre Mehta [facility], [address] [place] [id number] CLIA ID: [id number] SARS-COV-2, FLU A/B, AND RSV COMBO - Normal SARS-CoV-2 Not Detected Respiratory Syncytial Virus Not Detected Influenza A Not Detected Influenza B Not Detected Narrative: Methodology: real-time, RT-PCR The SARS-CoV-2, Flu A/B, and RSV Combo assay is intended for in vitro diagnostic use under the FDA Emergency Use Authorization (EUA). This test has not been FDA cleared or approved. In compliance with this authorization, please visit www.fda.gov/media/725088/download or www.fda.gov/media/378605/download to access the applicable information sheets. ETHANOL - Normal ETHANOL IN SER/PLAS 0.010 Narrative: NOTE: This result is for medical treatment only. Analysis performed using non-forensic procedures. CK - Normal CK 103 TROPONIN I - Normal TROPONIN I <0.012 Narrative: Patients with high levels of Biotin oral intake (ie >5 mg/day) may have falsely decreased Troponin levels. SARS-COV-2 AND RESPIRATORY PCR PANEL RESPIRATORY CULTURE AND STAIN PNEUMONIA PCR PANEL MRSA BY PCR LEGIONELLA AND STREPTOCOCCUS URINE ANTIGEN DRUGS OF ABUSE AMPHETAMINE SCREEN Negative BARBITURATES SCREEN Positive BENZODIAZEPINE SCREEN Negative COCAINE METAB. SCREEN Negative METHADONE SCREEN Positive OPIATES SCREEN Negative OXYCODONE SCREEN Negative PHENCYCLIDINE SCREEN Negative Narrative: The expected value for all of the drugs listed above is Negative. The following drugs or drug groups have been screened for by Immunoassay at the following thresholds: Amphetamine class (1000 ng/mL) Barbiturates (200 ng/mL) Benzodiazepines (200 ng/mL) Cocaine (300 ng/mL) Methadone (300 ng/mL) Opiates (300 ng/mL) Oxycodone (100 ng/mL) PCP (25 ng/mL) NOTE: These results are for medical treatment only. Analysis performed using non-forensic procedures. POSITIVE results are NOT confirmed by a more specific alternative method unless requested. If confirmation is needed, request confirmation under separate order. COMPLETE URINALYSIS WITH REFLEX TO CULTURE Narrative: The following orders were created for panel order Urinalysis Complete with reflex to Culture. Procedure Abnormality Status --------- ------ Complete Urinalysis[[id number]] Abnormal Final result Please view results for these tests on the individual orders. BLOOD GAS, VENOUS CBC WITH AUTO DIFFERENTIAL COMPREHENSIVE METABOLIC PANEL WITH MG REFLEX Narrative: The following orders were created for panel order Comprehensive Metabolic Panel w/ Mg Reflex. Procedure Abnormality Status --------- ------ Comprehensive metabolic p...[[id number]] Please view results for these tests on the individual orders. COMPREHENSIVE METABOLIC PANEL TROPONIN I TROPONIN I All other labs were within normal range or not returned as of this dictation. EMERGENCY DEPARTMENT COURSE and DIFFERENTIAL DIAGNOSIS/MDM: Vitals: Vitals: 09/18/22 1546 09/18/22 1745 09/18/22 1802 09/18/222030 BP: 111/85 111/75 BP Location: Left arm Patient Position: Sitting Sitting Pulse: 98 98 101 100 Resp: 18 18 16 Temp: 37.3 C (99.1 F) TempSrc: Oral SpO2: 100% 95% 93% 90% Weight: 86.8 kg (191 lb 6.4 oz) Height: 1.778 m (5' 10) ED Course as of 09/18/222112 Sat Sep 18, 2022 1512 41-year-old presents emergency room today with wheezing, shortness of breath. Was recently discharged from the hospital with diagnosis of pneumonia left AMA. Was also recently diagnosed with emphysema. Of note as well over the last 3 days has been complaining of auditory and visual hallucinations. He states he has had this before but has not been as severe. He is a daily drinker 10-15 shots a day with last drink this morning and also uses recreational marijuana. Denies any methamphetamine use. He also endorses associated chest tightness. Has history of hypertension and CAD status post 1 stent 1 year ago. On exam wheezing bilateral breath sounds heart regular rate and rhythm. [BM] 1650 CXR: 1. Bilateral perihilar interstitial opacities or infiltrate(s), which may represent acute inflammatory process, slightly decreased in the interval. Follow-up to resolution advised. [BM] 1712 Patient found to be positive for barbiturates and methadone on urine drug screen otherwise negative. Urinalysis no evidence of infection. VBG showing no evidence of respiratory acidosis, CMP showing hypokalemia will order oral replacement. CPK unremarkable, mild leukocytosis to 11.1, troponin and alcohol level undetectable. [BM] 1713 Chest x-ray showing evidence of pneumonia will start on Rocephin and azithromycin. [BM] 1853 Patient having new oxygen requirement of 2 to 3 L saturating in the mid 80s on room air. [BM] ED Course User Index [BM] Ene Sarabia DO Diagnoses as of 09/18/222112 Community acquired bacterial pneumonia Acute respiratory failure with hypoxia (CMS/HCC) (HCC) COPD exacerbation (HCC) EMERGENCY DEPARTMENT COURSE and DIFFERENTIAL DIAGNOSIS/MDM: Vitals: Vitals: 09/18/22 1546 09/18/22 1745 09/18/22 1802 09/18/222030 BP: 111/85 111/75 BP Location: Left arm Patient Position: Sitting Sitting Pulse: 98 98 101 100 Resp: 18 18 16 Temp: 37.3 C (99.1 F) TempSrc: Oral SpO2: 100% 95% 93% 90% Weight: 86.8 kg (191 lb 6.4 oz) Height: 1.778 m (5' 10) The patient presented with a chief complaint of shortness of breath and wheezing. The differential diagnosis associated with this patient's presentation includes viral URI, pneumonia, COPD exacerbation. ED Course as of 09/18/222112 Sat Sep 18, 2022 1512 41-year-old presents emergency room today with wheezing, shortness of breath. Was recently discharged from the hospital with diagnosis of pneumonia left AMA. Was also recently diagnosed with emphysema. Of note as well over the last 3 days has been complaining of auditory and visual hallucinations. He states he has had this before but has not been as severe. He is a daily drinker 10-15 shots a day with last drink this morning and also uses recreational marijuana. Denies any methamphetamine use. He also endorses associated chest tightness. Has history of hypertension and CAD status post 1 stent 1 year ago. On exam wheezing bilateral breath sounds heart regular rate and rhythm. [BM] 1653 CXR: 1. Bilateral perihilar interstitial opacities or infiltrate(s), which may represent acute inflammatory process, slightly decreased in the interval. Follow-up to resolution advised. [BM] 1712 Patient found to be positive for barbiturates and methadone on urine drug screen otherwise negative. Urinalysis no evidence of infection. VBG showing no evidence of respiratory acidosis, CMP showing hypokalemia will order oral replacement. CPK unremarkable, mild leukocytosis to 11.1, troponin and alcohol level undetectable. [BM] 1713 Chest x-ray showing evidence of pneumonia will start on Rocephin and azithromycin. [BM] 185 Patient having new oxygen requirement of 2 to 3 L saturating in the mid 80s on room air. [BM] ED Course User Index [BM] Ene No, Diagnoses as of 09/18/222112 Community acquired bacterial pneumonia Acute respiratory failure with hypoxia (CMS/HCC) (HCC) COPD exacerbation (HCC) Patient accepted for admission for new oxygen requirement treatment of pneumonia and COPD exacerbation as well as recommendation for evaluation for alcohol withdrawal and new hallucinations recommend evaluation by psychiatry. External records reviewed: Inpatient notes admission note reviewed from 09/16/2022 Dr. Onofre where patient was admitted for COPD exacerbation and alcohol withdrawal was admitted to the MICU for further management of his alcohol withdrawal and was treated on Precedex, Rocephin and doxycycline during this admission also required nasal cannula. Left AMA during that hospitalization. Diagnostics interpreted by me: Xray(s) bilateral perihilar infiltrates Discussions with other clinicians: Admitting team Dr. Guerra, Chronic conditions impacting care: COPD Social determinants of health affecting care: Alcoholism ED Medications managed: Medications Thiamine Mononitrate (Vitamin B1) tablet 100 mg (100 mg Oral Given 09/18/221811) folic acid (Folvite) tablet 1 mg (1 mg Oral Given 09/18/221811) sodium chloride 0.9% (NS) flush 10 mL (has no administration in time range) sodium chloride 0.9% (NS) flush 10 mL (has no administration in time range) sodium chloride 0.9 % infusion (has no administration in time range) ondansetron ODT (Zofran-ODT) disintegrating tablet 4 mg (has no administration in time range) Or ondansetron (Zofran) injection 4 mg (has no administration in time range) polyethylene glycol (PEG) 3350 (Miralax) packet 17 g (has no administration in time range) acetaminophen (Tylenol) tablet 650 mg (has no administration in time range) Or acetaminophen (Tylenol) suppository 650 mg (has no administration in time range) enoxaparin (Lovenox) syringe 40 mg (has no administration in time range) albuterol (2.5 MG/3ML) 0.083% nebulizer solution 2.5 mg (has no administration in time range) albuterol (2.5 MG/3ML) 0.083% nebulizer solution 2.5 mg (has no administration in time range) ampicillin-sulbactam (Unasyn) 3,000 mg in sodium chloride 0.9 % 100 mL IVPB (Mini-Bag Plus) (has no administration in time range) methylPREDNISolone sod suc (PF) (SOLU-Medrol) 40 MG injection 40 mg (has no administration in time range) Followed by predniSONE (Deltasone) tablet 40 mg (has no administration in time range) LORazepam (Ativan) tablet 1 mg (has no administration in time range) Or LORazepam (Ativan) injection 1 mg (has no administration in time range) Or LORazepam (Ativan) tablet 2 mg (has no administration in time range) Or LORazepam (Ativan) injection 2 mg (has no administration in time range) Or LORazepam (Ativan) tablet 3 mg (has no administration in time range) Or LORazepam (Ativan) injection 3 mg (has no administration in time range) Or LORazepam (Ativan) tablet 4 mg (has no administration in time range) Or LORazepam (Ativan) injection 4 mg (has no administration in time range) doxycycline (Monodox) capsule 100 mg (has no administration in time range) aspirin EC tablet 81 mg (has no administration in time range) ticagrelor (Brilinta) tablet 90 mg (has no administration in time range) carvedilol (Coreg) tablet 12.5 mg (has no administration in time range) methylPREDNISolone sodium succinate (PF) (SOLU-Medrol) injection 125 mg (125 mg IntraVENous Given 09/18/221811) LORazepam (Ativan) injection 1 mg (1 mg IntraVENous Given 09/18/221811) haloperidol lactate (Haldol) injection 2 mg (2 mg IntraVENous Given 09/18/221812) ipratropium-albuterol (Duo-Neb) 0.5-2.5 mg/3 mL nebulizer solution 3 mL (3 mL Nebulization Given 09/18/22 154) cefTRIAXone (Rocephin) 1,000 mg in sodium chloride 0.9 % 50 mL IVPB Mini-Bag Plus (0 mg IntraVENous Stopped 09/18/221849) azithromycin (Zithromax) 500 mg in sodium chloride 0.9 % 250 mL IVPB (ADD-[place]) (0 mg IntraVENous Stopped 09/18/222026) potassium chloride CR (Klor-Con M20) ER tablet 40 mEq (40 mEq Oral Given 09/18/221811) Medications Thiamine Mononitrate (Vitamin B1) tablet 100 mg (100 mg Oral Given 09/18/221811) folic acid (Folvite) tablet 1 mg (1 mg Oral Given 09/18/221811) sodium chloride 0.9% (NS) flush 10 mL (has no administration in time range) sodium chloride 0.9% (NS) flush 10 mL (has no administration in time range) sodium chloride 0.9 % infusion (has no administration in time range) ondansetron ODT (Zofran-ODT) disintegrating tablet 4 mg (has no administration in time range) Or ondansetron (Zofran) injection 4 mg (has no administration in time range) polyethylene glycol (PEG) 3350 (Miralax) packet 17 g (has no administration in time range) acetaminophen (Tylenol) tablet 650 mg (has no administration in time range) Or acetaminophen (Tylenol) suppository 650 mg (has no administration in time range) enoxaparin (Lovenox) syringe 40 mg (has no administration in time range) albuterol (2.5 MG/3ML) 0.083% nebulizer solution 2.5 mg (has no administration in time range) albuterol (2.5 MG/3ML) 0.083% nebulizer solution 2.5 mg (has no administration in time range) ampicillin-sulbactam (Unasyn) 3,000 mg in sodium chloride 0.9 % 100 mL IVPB (Mini-Bag Plus) (has no administration in time range) methylPREDNISolone sod suc (PF) (SOLU-Medrol) 40 MG injection 40 mg (has no administration in time range) Followed by predniSONE (Deltasone) tablet 40 mg (has no administration in time range) LORazepam (Ativan) tablet 1 mg (has no administration in time range) Or LORazepam (Ativan) injection 1 mg (has no administration in time range) Or LORazepam (Ativan) tablet 2 mg (has no administration in time range) Or LORazepam (Ativan) injection 2 mg (has no administration in time range) Or LORazepam (Ativan) tablet 3 mg (has no administration in time range) Or LORazepam (Ativan) injection 3 mg (has no administration in time range) Or LORazepam (Ativan) tablet 4 mg (has no administration in time range) Or LORazepam (Ativan) injection 4 mg (has no administration in time range) doxycycline (Monodox) capsule 100 mg (has no administration in time range) aspirin EC tablet 81 mg (has no administration in time range) ticagrelor (Brilinta) tablet 90 mg (has no administration in time range) carvedilol (Coreg) tablet 12.5 mg (has no administration in time range) methylPREDNISolone sodium succinate (PF) (SOLU-Medrol) injection 125 mg (125 mg IntraVENous Given 09/18/221811) LORazepam (Ativan) injection 1 mg (1 mg IntraVENous Given 09/18/221811) haloperidol lactate (Haldol) injection 2 mg (2 mg IntraVENous Given 09/18/221812) ipratropium-albuterol (Duo-Neb) 0.5-2.5 mg/3 mL nebulizer solution 3 mL (3 mL Nebulization Given 09/18/22 154) cefTRIAXone (Rocephin) 1,000 mg in sodium chloride 0.9 % 50 mL IVPB Mini-Bag Plus (0 mg IntraVENous Stopped 09/18/221849) azithromycin (Zithromax) 500 mg in sodium chloride 0.9 % 250 mL IVPB (ADD-[place]) (0 mg IntraVENous Stopped 09/18/222026) potassium chloride CR (Klor-Con M20) ER tablet 40 mEq (40 mEq Oral Given 09/18/221811) REVAL: CRITICAL CARE TIME FINAL IMPRESSION 1. Community acquired bacterial pneumonia 2. Acute respiratory failure with hypoxia (CMS/HCC) (HCC) 3. COPD exacerbation ([facility]) DISPOSITION Admit 09/18/2022 07:10:23 PM PATIENT REFERRED TO: No follow-up provider specified. DISCHARGE MEDICATIONS: Current Discharge Medication List (Comment: Please note this report has been produced using speech recognition software and may contain errors related to that system including errors in grammar, punctuation, and spelling, as well as words and phrases that may be inappropriate. If there are any questions or concerns please feel free to contact the dictating provider for clarification.) Ene Sarabia DO (electronically signed) Emergency Medicine Provider Ene Sarabia DO 09/18/222113 C/o SOB that started a couple days ago. Pt recently diagnosed with emphysema. Denies taking any medications for it. Endorses tobacco use, 2PPD x32 years. States he is having CP that started 1 week ago. Pt walked back to ED room 19 and placed on the monitor. Monitor showed 85% on RA with good waveform, pt placed on 4lpm via NC and pt improved to 95%. Melani Chris 09/18/221751 documented in this encounter [facility] [place] 09-18-2022 Note NOTE: This result is for medical treatment only. Analysis performed using non-forensic procedures. [facility] [place] 09-18-2022 Emergency department Note Pt walked back to ED room 19 and placed on the monitor. Monitor showed 85% on RA with good waveform, pt placed on 4lpm via NC and pt improved to 95%. Melani Chris 09/18/221751 [facility] [place] 09-18-2022 Emergency department Triage note C/o SOB that started a couple days ago. Pt recently diagnosed with emphysema. Denies taking any medications for it. Endorses tobacco use, 2PPD x32 years. States he is having CP that started 1 week ago. [facility] [place] 09-18-2022 Physician Emergency department Note EMERGENCY DEPARTMENT ENCOUNTER Pt Name: El Smith Birthdate 1980 Date of evaluation: 09/18/2022 ED Provider: Ene Sarabia DO CHIEF COMPLAINT Chief Complaint Patient presents with Shortness of Breath HISTORY OF PRESENT ILLNESS (Location/Symptom, Timing/Onset, Context/Setting, Quality, Duration, Modifying Factors, Severity) Note limiting factors. I wore appropriate PPE for the entirety of this encounter. HPI 41-year-old presents emergency room today with wheezing, shortness of breath. Was recently discharged from the hospital with diagnosis of pneumonia left AMA. Was also recently diagnosed with emphysema. Of note as well over the last 3 days has been complaining of auditory and visual hallucinations. He states he has had this before but has not been as severe. He is a daily drinker 10-15 shots a day with last drink this morning and also uses recreational marijuana. Denies any methamphetamine use. He also endorses associated chest tightness. Has history of hypertension and CAD status post 1 stent 1 year ago. Nursing Notes were reviewed. Limitations to history: None Outside historians:None REVIEW OF SYSTEMS Review of Systems Respiratory: Positive for cough, chest tightness, shortness of breath and wheezing. Psychiatric/Behavioral: Positive for hallucinations. The patient is nervous/anxious. Pertinent positives and negatives as per HPI. 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 Drug abuse ([facility]) ([facility]) Gastroenteritis 11/23/2018 Last Assessment & Plan: Predominantly vomiting; ?food poisoning vs viral gastroenteritis IV hydration PRN antiemetics Hyperlipidemia Hypertension Iritis of left eye 09/20/2018 [facility] (myocardial infarction) ([facility]) ([facility]) Opioid dependence, uncomplicated ([facility]) 10/27/2021 Presence of stent in right coronary artery 10/02/2021 Sciatica Spinal stenosis, lumbar Tobacco abuse SURGICAL HISTORY Past Surgical History: Procedure Laterality Date ARM SURGERY (HISTORICAL) metal rods in adam upper extremities BACK SURGERY COLONOSCOPY CORONARY ANGIOPLASTY WITH STENT PLACEMENT 09/23/2021 DORIS to proximal RCA FRACTURE SURGERY CURRENT MEDICATIONS Current Discharge Medication List CONTINUE these medications which have NOT CHANGED Details aspirin 81 MG EC tablet Take 81 mg by mouth in the morning. carvedilol (Coreg) 12.5 MG tablet lidocaine (Lidoderm) 5 % patch Apply 1 patch topically daily. Remove & discard patch within 12 hours or as directed by MD. Qty: 15 patch, Refills: 0 LISINOPRIL PO Take by mouth. METHADONE HCL PO Take by mouth. methocarbamol (Robaxin) 500 MG tablet Take 2 tablets (1,000 mg) by mouth in the morning and 2 tablets (1,000 mg) at noon and 2 tablets (1,000 mg) before bedtime. Do all this for 10 days. Qty: 60 tablet, Refills: 0 Ticagrelor (BRILINTA PO) Take by mouth. ALLERGIES [place] FAMILY HISTORY Family History Problem Relation Name Age of Onset Atrial fibrillation Sister Hyperlipidemia Mother Obesity Mother Asthma Mother Depression Mother Obesity Sister Depression Sister Arthritis Mother High Blood Pressure Maternal Grandmother Diabetes Mother Asthma Maternal Grandmother Substance Abuse Sister Diabetes Father Stroke Paternal Grandfather Arthritis Sister High Blood Pressure Mother Vision loss Maternal Grandmother Diabetes Maternal Grandmother Stroke Maternal Grandmother Arthritis Maternal Grandfather Arthritis Maternal Grandmother Cancer Maternal Grandfather Depression Maternal Grandmother Cancer Brother Diabetes Paternal Grandfather Stroke Paternal Grandmother Diabetes Maternal Grandfather Obesity Maternal Grandmother Depression Maternal Grandfather Arthritis Paternal Grandmother Vision loss Maternal Grandfather Depression Paternal Grandmother Arthritis Paternal Grandfather SOCIAL HISTORY Social History Socioeconomic History Marital status: Single Tobacco Use Smoking status: Every Day Packs/day: 2.00 Types: Cigarettes Smokeless tobacco: Current Vaping Use Vaping Use: Never used Substance and Sexual Activity Alcohol use: Yes Comment: 15 shots of whiskey Drug use: Yes Types: Marijuana Comment: uses methadone, also buys pain meds on the streets Social Determinants of Health Transportation Needs: No Transportation Needs Lack of Transportation (Medical): No Lack of Transportation (Non-Medical): No Intimate Partner Violence: Not At Risk Fear of Current or Ex-Partner: No Emotionally Abused: No Physically Abused: No Sexually Abused: No Housing Stability: Low Risk Unable to Pay for Housing in the Last Year: No Number of Places Lived in the Last Year: 1 Unstable Housing in the Last Year: No SCREENINGS PHYSICAL EXAM ED Triage Vitals Temp Heart Rate Resp BP 09/18/22 1423 09/18/22 1423 09/18/22 1423 09/18/22 1423 (!) 35.6 C (96 F) (!) 117 20 124/87 SpO2 Temp Source Heart Rate Source Patient Position 09/18/22 1423 09/18/22 1423 09/18/22 1423 09/18/22 1802 (!) 87 % Temporal Monitor Sitting BP Location FiO2 (%) 09/18/222030 -- Left arm Physical Exam Vitals and nursing note reviewed. Constitutional: General: He is not in acute distress. Appearance: He is well-developed. HENT: Head: Normocephalic and atraumatic. Eyes: Conjunctiva/sclera: Conjunctivae normal. Cardiovascular: Rate and Rhythm: Normal rate and regular rhythm. Heart sounds: No murmur heard. Pulmonary: Effort: Pulmonary effort is normal. No respiratory distress. Breath sounds: Wheezing present. Abdominal: Palpations: Abdomen is soft. Tenderness: There is no abdominal tenderness. Musculoskeletal: General: No swelling. Cervical back: Neck supple. Skin: General: Skin is warm and dry. Capillary Refill: Capillary refill takes less than 2 seconds. Neurological: Mental Status: He is alert. Psychiatric: Attention and Perception: He perceives auditory and visual hallucinations. Mood and Affect: Mood is anxious. DIAGNOSTIC RESULTS Procedures/EKG: EKG was reviewed by myself. Physician EKG interpretation can be found in [facility] RADIOLOGY (Per Emergency Physician): Interpretation per the Radiologist below, if available at the time of this note: XR chest 1 view Final Result 1. Bilateral perihilar interstitial opacities or infiltrate(s), which may represent acute inflammatory process, slightly decreased in the interval. Follow-up to resolution advised. Report Dictated on Electronically Signed By: Tk Trinh Electronically Signed Date/Time: 09/18/2022 3:20 PM EDT ED BEDSIDE ULTRASOUND: Performed by ED Physician - none LABS: Labs Reviewed CBC WITH AUTO DIFFERENTIAL - Abnormal Result Value Auto WBC 11.1 (*) RBC 4.15 (*) Hemoglobin 12.5 (*) Hematocrit 37.3 (*) MCV 89.8 MCH 30.2 MCHC 33.7 RDW 15.8 (*) Platelets 500 (*) MPV 6.9 (*) nRBC 0.0 Neutrophils Relative 69.0 Lymphocytes Relative 23.1 Monocytes Relative 5.1 Eosinophils Relative 1.1 Basophils Relative 1.7 Neutrophils Absolute 7.6 (*) Lymphocytes Absolute 2.6 Monocytes Absolute 0.6 Eosinophils Absolute 0.1 Basophils Absolute 0.2 COMPREHENSIVE METABOLIC PANEL - Abnormal SODIUM 136 POTASSIUM 3.1 (*) CHLORIDE 101 CARBON DIOXIDE 28 ANION GAP 8 UREA NITROGEN 18 CREATININE 0.71 GLUCOSE 83 CALCIUM 8.2 (*) AST (SGOT) 56 (*) ALT 21 ALKALINE PHOSPHATASE 154 (*) ALBUMIN 3.5 BILIRUBIN, TOTAL 0.5 TOTAL PROTEIN 6.9 eGFR >90.0 COMPLETE URINALYSIS - Abnormal Color, Urine Yellow Clarity, Urine Clear pH, Urine 6.5 Leukocytes, Urine 25 (*) Nitrite, Urine Negative Protein, Urine 70 (*) Glucose, Urine Normal Bilirubin, Urine Negative Ketones, Urine Negative Urobilinogen, Urine Normal Blood, Urine Negative RBC, Urine 0-2 WBC, Urine 3-5 Squamous Epithelial, Urine 0-2 Bacteria, Urine Few (*) Mucus, Urine Many (*) Hyaline Casts, Urine 0-2 (*) SPECIFIC GRAVITY OF URINE (NUMERIC) 1.027 POCT VENOUS BLOOD GAS UNSOLICITED RESULTS - Abnormal pH, Venous 7.431 (*) pCO2, Venous 41.8 pO2, Venous 45.3 TCO2, Venous 29.1 (*) HCO3, Venous 27.8 (*) Base Excess, Venous 2.9 SO2, Venous 82.1 (*) FIO2 Narrative: [facility] by: [facility] [address] [place] [address] CLIA ID: [id number] SARS-COV-2, FLU A/B, AND RSV COMBO - Normal SARS-CoV-2 Not Detected Respiratory Syncytial Virus Not Detected Influenza A Not Detected Influenza B Not Detected Narrative: Methodology: real-time, RT-PCR The SARS-CoV-2, Flu A/B, and RSV Combo assay is intended for in vitro diagnostic use under the FDA Emergency Use Authorization (EUA). This test has not been FDA cleared or approved. In compliance with this authorization, please visit www.fda.gov/media/521299/download or www.fda.gov/media/934436/download to access the applicable information sheets. ETHANOL - Normal ETHANOL IN SER/PLAS 0.010 Narrative: NOTE: This result is for medical treatment only. Analysis performed using non-forensic procedures. CK - Normal CK 103 TROPONIN I - Normal TROPONIN I <0.012 Narrative: Patients with high levels of Biotin oral intake (ie >5 mg/day) may have falsely decreased Troponin levels. SARS-COV-2 AND RESPIRATORY PCR PANEL RESPIRATORY CULTURE AND STAIN PNEUMONIA PCR PANEL MRSA BY PCR LEGIONELLA AND STREPTOCOCCUS URINE ANTIGEN DRUGS OF ABUSE AMPHETAMINE SCREEN Negative BARBITURATES SCREEN Positive BENZODIAZEPINE SCREEN Negative COCAINE METAB. SCREEN Negative METHADONE SCREEN Positive OPIATES SCREEN Negative OXYCODONE SCREEN Negative PHENCYCLIDINE SCREEN Negative Narrative: The expected value for all of the drugs listed above is Negative. The following drugs or drug groups have been screened for by Immunoassay at the following thresholds: Amphetamine class (1000 ng/mL) Barbiturates (200 ng/mL) Benzodiazepines (200 ng/mL) Cocaine (300 ng/mL) Methadone (300 ng/mL) Opiates (300 ng/mL) Oxycodone (100 ng/mL) PCP (25 ng/mL) NOTE: These results are for medical treatment only. Analysis performed using non-forensic procedures. POSITIVE results are NOT confirmed by a more specific alternative method unless requested. If confirmation is needed, request confirmation under separate order. COMPLETE URINALYSIS WITH REFLEX TO CULTURE Narrative: The following orders were created for panel order Urinalysis Complete with reflex to Culture. Procedure Abnormality Status --------- ------ Complete Urinalysis[[id number]] Abnormal Final result Please view results for these tests on the individual orders. BLOOD GAS, VENOUS CBC WITH AUTO DIFFERENTIAL COMPREHENSIVE METABOLIC PANEL WITH MG REFLEX Narrative: The following orders were created for panel order Comprehensive Metabolic Panel w/ Mg Reflex. Procedure Abnormality Status --------- ------ Comprehensive metabolic p...[[id number]] Please view results for these tests on the individual orders. COMPREHENSIVE METABOLIC PANEL TROPONIN I TROPONIN I All other labs were within normal range or not returned as of this dictation. EMERGENCY DEPARTMENT COURSE and DIFFERENTIAL DIAGNOSIS/MDM: Vitals: Vitals: 09/18/22 1546 09/18/22 1745 09/18/22 1802 09/18/22 2031 BP: 111/85 111/75 BP Location: Left arm Patient Position: Sitting Sitting Pulse: 98 98 101 100 Resp: 18 18 16 Temp: 37.3 C (99.1 F) TempSrc: Oral SpO2: 100% 95% 93% 90% Weight: 86.8 kg (191 lb 6.4 oz) Height: 1.778 m (5' 10) ED Course as of 09/18/222112 Sat Sep 18, 2022 1512 41-year-old presents emergency room today with wheezing, shortness of breath. Was recently discharged from the hospital with diagnosis of pneumonia left AMA. Was also recently diagnosed with emphysema. Of note as well over the last 3 days has been complaining of auditory and visual hallucinations. He states he has had this before but has not been as severe. He is a daily drinker 10-15 shots a day with last drink this morning and also uses recreational marijuana. Denies any methamphetamine use. He also endorses associated chest tightness. Has history of hypertension and CAD status post 1 stent 1 year ago. On exam wheezing bilateral breath sounds heart regular rate and rhythm. [BM] 1653 CXR: 1. Bilateral perihilar interstitial opacities or infiltrate(s), which may represent acute inflammatory process, slightly decreased in the interval. Follow-up to resolution advised. [BM] 1712 Patient found to be positive for barbiturates and methadone on urine drug screen otherwise negative. Urinalysis no evidence of infection. VBG showing no evidence of respiratory acidosis, CMP showing hypokalemia will order oral replacement. CPK unremarkable, mild leukocytosis to 11.1, troponin and alcohol level undetectable. [BM] 1713 Chest x-ray showing evidence of pneumonia will start on Rocephin and azithromycin. [BM] 1853 Patient having new oxygen requirement of 2 to 3 L saturating in the mid 80s on room air. [BM] ED Course User Index [BM] Ene Sarabia, Diagnoses as of 09/18/222112 Community acquired bacterial pneumonia Acute respiratory failure with hypoxia (CMS/HCC) (HCC) COPD exacerbation (HCC) EMERGENCY DEPARTMENT COURSE and DIFFERENTIAL DIAGNOSIS/MDM: Vitals: Vitals: 09/18/22 1546 09/18/22 1745 09/18/22 1802 09/18/222030 BP: 111/85 111/75 BP Location: Left arm Patient Position: Sitting Sitting Pulse: 98 98 101 100 Resp: 18 18 16 Temp: 37.3 C (99.1 F) TempSrc: Oral SpO2: 100% 95% 93% 90% Weight: 86.8 kg (191 lb 6.4 oz) Height: 1.778 m (5' 10) The patient presented with a chief complaint of shortness of breath and wheezing. The differential diagnosis associated with this patient's presentation includes viral URI, pneumonia, COPD exacerbation. ED Course as of 09/18/222112 Sat Sep 18, 2022 1512 41-year-old presents emergency room today with wheezing, shortness of breath. Was recently discharged from the hospital with diagnosis of pneumonia left AMA. Was also recently diagnosed with emphysema. Of note as well over the last 3 days has been complaining of auditory and visual hallucinations. He states he has had this before but has not been as severe. He is a daily drinker 10-15 shots a day with last drink this morning and also uses recreational marijuana. Denies any methamphetamine use. He also endorses associated chest tightness. Has history of hypertension and CAD status post 1 stent 1 year ago. On exam wheezing bilateral breath sounds heart regular rate and rhythm. [BM] 1653 CXR: 1. Bilateral perihilar interstitial opacities or infiltrate(s), which may represent acute inflammatory process, slightly decreased in the interval. Follow-up to resolution advised. [BM] 1712 Patient found to be positive for barbiturates and methadone on urine drug screen otherwise negative. Urinalysis no evidence of infection. VBG showing no evidence of respiratory acidosis, CMP showing hypokalemia will order oral replacement. CPK unremarkable, mild leukocytosis to 11.1, troponin and alcohol level undetectable. [BM] 1713 Chest x-ray showing evidence of pneumonia will start on Rocephin and azithromycin. [BM] 1853 Patient having new oxygen requirement of 2 to 3 L saturating in the mid 80s on room air. [BM] ED Course User Index [BM] Ene Sarabia, Diagnoses as of 09/18/222112 Community acquired bacterial pneumonia Acute respiratory failure with hypoxia (CMS/HCC) (HCC) COPD exacerbation (HCC) Patient accepted for admission for new oxygen requirement treatment of pneumonia and COPD exacerbation as well as recommendation for evaluation for alcohol withdrawal and new hallucinations recommend evaluation by psychiatry. External records reviewed: Inpatient notes admission note reviewed from 09/16/2022 Dr. Onofre where patient was admitted for COPD exacerbation and alcohol withdrawal was admitted to the MICU for further management of his alcohol withdrawal and was treated on Precedex, Rocephin and doxycycline during this admission also required nasal cannula. Left AMA during that hospitalization. Diagnostics interpreted by me: Xray(s) bilateral perihilar infiltrates Discussions with other clinicians: Admitting team Dr. Guerra, Chronic conditions impacting care: COPD Social determinants of health affecting care: Alcoholism ED Medications managed: Medications Thiamine Mononitrate (Vitamin B1) tablet 100 mg (100 mg Oral Given 09/18/221811) folic acid (Folvite) tablet 1 mg (1 mg Oral Given 09/18/221811) sodium chloride 0.9% (NS) flush 10 mL (has no administration in time range) sodium chloride 0.9% (NS) flush 10 mL (has no administration in time range) sodium chloride 0.9 % infusion (has no administration in time range) ondansetron ODT (Zofran-ODT) disintegrating tablet 4 mg (has no administration in time range) Or ondansetron (Zofran) injection 4 mg (has no administration in time range) polyethylene glycol (PEG) 3350 (Miralax) packet 17 g (has no administration in time range) acetaminophen (Tylenol) tablet 650 mg (has no administration in time range) Or acetaminophen (Tylenol) suppository 650 mg (has no administration in time range) enoxaparin (Lovenox) syringe 40 mg (has no administration in time range) albuterol (2.5 MG/3ML) 0.083% nebulizer solution 2.5 mg (has no administration in time range) albuterol (2.5 MG/3ML) 0.083% nebulizer solution 2.5 mg (has no administration in time range) ampicillin-sulbactam (Unasyn) 3,000 mg in sodium chloride 0.9 % 100 mL IVPB (Mini-Bag Plus) (has no administration in time range) methylPREDNISolone sod suc (PF) (SOLU-Medrol) 40 MG injection 40 mg (has no administration in time range) Followed by predniSONE (Deltasone) tablet 40 mg (has no administration in time range) LORazepam (Ativan) tablet 1 mg (has no administration in time range) Or LORazepam (Ativan) injection 1 mg (has no administration in time range) Or LORazepam (Ativan) tablet 2 mg (has no administration in time range) Or LORazepam (Ativan) injection 2 mg (has no administration in time range) Or LORazepam (Ativan) tablet 3 mg (has no administration in time range) Or LORazepam (Ativan) injection 3 mg (has no administration in time range) Or LORazepam (Ativan) tablet 4 mg (has no administration in time range) Or LORazepam (Ativan) injection 4 mg (has no administration in time range) doxycycline (Monodox) capsule 100 mg (has no administration in time range) aspirin EC tablet 81 mg (has no administration in time range) ticagrelor (Brilinta) tablet 90 mg (has no administration in time range) carvedilol (Coreg) tablet 12.5 mg (has no administration in time range) methylPREDNISolone sodium succinate (PF) (SOLU-Medrol) injection 125 mg (125 mg IntraVENous Given 09/18/221811) LORazepam (Ativan) injection 1 mg (1 mg IntraVENous Given 09/18/221811) haloperidol lactate (Haldol) injection 2 mg (2 mg IntraVENous Given 09/18/221812) ipratropium-albuterol (Duo-Neb) 0.5-2.5 mg/3 mL nebulizer solution 3 mL (3 mL Nebulization Given 09/18/221545) cefTRIAXone (Rocephin) 1,000 mg in sodium chloride 0.9 % 50 mL IVPB Mini-Bag Plus (0 mg IntraVENous Stopped 09/18/221849) azithromycin (Zithromax) 500 mg in sodium chloride 0.9 % 250 mL IVPB (ADD-[place]) (0 mg IntraVENous Stopped 09/18/222026) potassium chloride CR (Klor-Con M20) ER tablet 40 mEq (40 mEq Oral Given 09/18/221811) Medications Thiamine Mononitrate (Vitamin B1) tablet 100 mg (100 mg Oral Given 09/18/221811) folic acid (Folvite) tablet 1 mg (1 mg Oral Given 09/18/221811) sodium chloride 0.9% (NS) flush 10 mL (has no administration in time range) sodium chloride 0.9% (NS) flush 10 mL (has no administration in time range) sodium chloride 0.9 % infusion (has no administration in time range) ondansetron ODT (Zofran-ODT) disintegrating tablet 4 mg (has no administration in time range) Or ondansetron (Zofran) injection 4 mg (has no administration in time range) polyethylene glycol (PEG) 3350 (Miralax) packet 17 g (has no administration in time range) acetaminophen (Tylenol) tablet 650 mg (has no administration in time range) Or acetaminophen (Tylenol) suppository 650 mg (has no administration in time range) enoxaparin (Lovenox) syringe 40 mg (has no administration in time range) albuterol (2.5 MG/3ML) 0.083% nebulizer solution 2.5 mg (has no administration in time range) albuterol (2.5 MG/3ML) 0.083% nebulizer solution 2.5 mg (has no administration in time range) ampicillin-sulbactam (Unasyn) 3,000 mg in sodium chloride 0.9 % 100 mL IVPB (Mini-Bag Plus) (has no administration in time range) methylPREDNISolone sod suc (PF) (SOLU-Medrol) 40 MG injection 40 mg (has no administration in time range) Followed by predniSONE (Deltasone) tablet 40 mg (has no administration in time range) LORazepam (Ativan) tablet 1 mg (has no administration in time range) Or LORazepam (Ativan) injection 1 mg (has no administration in time range) Or LORazepam (Ativan) tablet 2 mg (has no administration in time range) Or LORazepam (Ativan) injection 2 mg (has no administration in time range) Or LORazepam (Ativan) tablet 3 mg (has no administration in time range) Or LORazepam (Ativan) injection 3 mg (has no administration in time range) Or LORazepam (Ativan) tablet 4 mg (has no administration in time range) Or LORazepam (Ativan) injection 4 mg (has no administration in time range) doxycycline (Monodox) capsule 100 mg (has no administration in time range) aspirin EC tablet 81 mg (has no administration in time range) ticagrelor (Brilinta) tablet 90 mg (has no administration in time range) carvedilol (Coreg) tablet 12.5 mg (has no administration in time range) methylPREDNISolone sodium succinate (PF) (SOLU-Medrol) injection 125 mg (125 mg IntraVENous Given 09/18/221811) LORazepam (Ativan) injection 1 mg (1 mg IntraVENous Given 09/18/221811) haloperidol lactate (Haldol) injection 2 mg (2 mg IntraVENous Given 09/18/221812) ipratropium-albuterol (Duo-Neb) 0.5-2.5 mg/3 mL nebulizer solution 3 mL (3 mL Nebulization Given 09/18/22 154) cefTRIAXone (Rocephin) 1,000 mg in sodium chloride 0.9 % 50 mL IVPB Mini-Bag Plus (0 mg IntraVENous Stopped 09/18/221849) azithromycin (Zithromax) 500 mg in sodium chloride 0.9 % 250 mL IVPB (ADD-[place]) (0 mg IntraVENous Stopped 09/18/222026) potassium chloride CR (Klor-Con M20) ER tablet 40 mEq (40 mEq Oral Given 09/18/221811) REVAL: CRITICAL CARE TIME FINAL IMPRESSION 1. Community acquired bacterial pneumonia 2. Acute respiratory failure with hypoxia (CMS/HCC) (HCC) 3. COPD exacerbation (HCC) DISPOSITION Admit 09/18/2022 07:10:23 PM PATIENT REFERRED TO: No follow-up provider specified. DISCHARGE MEDICATIONS: Current Discharge Medication List (Comment: Please note this report has been produced using speech recognition software and may contain errors related to that system including errors in grammar, punctuation, and spelling, as well as words and phrases that may be inappropriate. If there are any questions or concerns please feel free to contact the dictating provider for clarification.) Ene Sarabia DO (electronically signed) Emergency Medicine Provider Ene Sarabia DO 09/18/222113 [facility] [place] 09-16-2022 Hospital course Narrative Discharge Summary El Smith : 1980 ADMIT DATE: 09/16/2022 DISCHARGE DATE: 09/16/2022 PRIMARY CARE PHYSICIAN: KAY KERR VISIT STATUS: Admission CODE STATUS: Full Code DISCHARGE DIAGNOSES: Principal Problem: COPD exacerbation (HCC) HOSPITAL COURSE: 41 y.o. male with past medical history below who presents with chief complaint listed above. Patient presents to the [place] ED with complaints of chest pain. Symptoms started yesterday throughout the day with radiation to the right side. Had associated shortness of breath, productive cough and diarrhea. Of note, patient endorse heavy ETOH use, drinks 5-10 3 oz liquor bottles daily. Last use at 6 pm on 09/15. No hx of DTs. Currently on Methadone for chronic pain. Denies abdominal pain, nausea, vomiting, constipation, fevers, or chills. Of note, patient was recently admitted in [facility], into detox unit. Left AMA, 08/26/2022. In the ED, BP 132/90, heart rate 91, RR 17, temperature 98.3 F, SPO2 92% on room air. Labs are consistent with a leukocytosis of 13.1, potassium 2.9, serum creatinine 0.63, troponin negative x1, lactic acid 1.3, blood cultures drawn and pending. Chest x-ray shows bilateral perihilar infiltrates. EKG shows no acute ST-T wave changes with prolonged QTc at 499. Treated with ceftriaxone, doxycycline and Solu-Medrol. In the ED, patient had a CIWA score 11. Required 100 mg of phenobarbital at 7 AM and a total of 11 mg of Ativan since 5 AM this morning. Transferred to [facility] under hospitalist service. Upon hospitalist eval, patient was restless and tremulous, requiring multiple doses of ativan for withdrawal. Hallucinating. Given severe symptoms and early in course, transferred to MICU for further management of alcohol withdrawal. He was started on precedex gtt, and IV Ceftriaxone and IV doxycycline, and needing intemittent low flow O2 via nasal cannula. He was subsequently Aox3, and adamant he wanted to leave. Deemed to have medical capacity and understanding of potential consequences of leaving , including possible . He left AMA. SIGNIFICANT DIAGNOSTIC STUDIES: CXR: bilateral infiltrates. CONSULTANTS: None RECOMMENDED NEXT STEPS: Follow up in Detox center. DISCHARGE MEDICATIONS: Medication List ASK your doctor about these medications aspirin 81 MG EC tablet BRILINTA PO carvedilol 12.5 MG tablet Commonly known as: Coreg lidocaine 5 % patch Commonly known as: Lidoderm Apply 1 patch topically daily. Remove & discard patch within 12 hours or as directed by . LISINOPRIL PO METHADONE HCL PO methocarbamol 500 MG tablet Commonly known as: Robaxin Take 2 tablets (1,000 mg) by mouth in the morning and 2 tablets (1,000 mg) at noon and 2 tablets (1,000 mg) before bedtime. Do all this for 10 days. PENDING STUDIES: None DISPOSITION: AMA SIGNED: Mert Sutherland MD 09/16/2022, 5:06 PM documented in this encounter [facility] [place] 09-16-2022 Nurse Note 1038 Transferred from via bed. Connected to monitor. 1105 Agitated, medication given per CIDE protocol 1255 Precedex drip started for agitation 1511 Agitation, trying to get out of bed. Meds given per CIDE protocol, see JUN 1529 Security at bedside. Pt yelling, trying to rip off medical equipment 1555 Pulled off oxygen and measurement and sensing technician, yelling he wants to go home. Precedex drip stopped. 1600 Physician at bedside explaining the risk of leaving against medical advice. AOX3 and able to verbalize the risk of leaving against medical advice. 1605 Paperwork signed by pt to leave AMA. 1610 IV lines removed from arms. 1615 Got dressed to leave. Has cell phone, walking cane and clothes. Left with security and mother Ruth via wheelchair [facility] [place] 09-16-2022 Nurse Note 1038 Transferred from via bed. Connected to monitor. 1105 Agitated, medication given per CIDE protocol 1255 Precedex drip started for agitation 1511 Agitation, trying to get out of bed. Meds given per [facility] protocol, see JUN 1529 Security at bedside. Pt yelling, trying to rip off medical equipment 1555 Pulled off oxygen and measurement and sensing technician, yelling he wants to go home. Precedex drip stopped. 1600 Physician at bedside explaining the risk of leaving against medical advice. AOX3 and able to verbalize the risk of leaving against medical advice. 1605 Paperwork signed by pt to leave AMA. 1610 IV lines removed from arms. 1615 Got dressed to leave. Has cell phone, walking cane and clothes. Left with security and mother Ruth via wheelchair documented in this encounter [facility] [place] 09-16-2022 History of Present illness Narrative Patient becoming agitated. On high doses of precedex, and PRN ativan doses. He is asking to walk and go to the bathroom, and is told this is unsafe, given he is on multiple medications, including precedex drip. He seemed to calm down, but became agitated as he wanted his methadone. He has a prolonged QTC, 542 on most recent EKG. Discussed methadone may be unsafe given QT prolonging effects, this was discussed at before he left AMA. Patient remains agitated, security at bedside. He is adamant he wants to leave the hospital. He denies suicidal or homicidal ideation. His mother at bedside urged him to stay but he is wanting to leave. He is Alert and oriented to person, time and place, has an understanding of his medical condition. He verbalizes an understanding of how sick he is, and verbalizes the understanding of the adverse effects of leaving, including the possibility of . I explained he is only better due to being on multiple doses of ativan and precedex gtt, and antibiotics, and needing oxygen. I am worried about discharging him given severe withdrawal, but given that he is alert and oriented, and has an understanding and verbalized risks associated with leaving the hospital against medical advice, he therefore has decision making capacity and we can not hold him against his will. On my assessment, no hallucinations, nystagmus, respiratory distress noted. Precedex gtt was shut off, patient was observed further with mild tremor but he remained in a reasonable state of mind. He signed the AMA form, and was escorted out by security. Patient to floor from [place] ED. CIWA 19. 3 mg IV ativan given per protocol. [employer] RN and Dr Nelson paged to bedside to evaluate patient. documented in this encounter [facility] [place] 09-16-2022 Note NOTE: This result is for medical treatment only. Analysis performed using non-forensic procedures. [facility] [place] 09-16-2022 Consult note Associated Order (s): IP CONSULT TO MEDICAL CRITICAL CARE Images from the original note were not included. Internal Medicine: MICU Initial Consult Name: El Smith : 1980(41 y.o.) Date: 09/16/22 Attending: Dr. Mert Sutherland MD Subjective: Chief Complaint: Altered mental status, acute alcohol withdrawal HPI: 41 y.o. male with past medical history below who presents with chief complaint listed above. Patient presents to the [place] ED with complaints of chest pain. Symptoms started yesterday throughout the day with radiation to the right side. Had associated shortness of breath, productive cough and diarrhea. Of note, patient endorse heavy ETOH use, drinks 5-10 3 oz liquor bottles daily. Last use at 6 pm on 09/15. No hx of DTs. Currently on Methadone for chronic pain. Denies abdominal pain, nausea, vomiting, constipation, fevers, or chills. Of note, patient was recently admitted in [facility], into detox unit. Left AMA, 08/26/2022. In the ED, BP 132/90, heart rate 91, RR 17, temperature 98.3 F, SPO2 92% on room air. Labs are consistent with a leukocytosis of 13.1, potassium 2.9, serum creatinine 0.63, troponin negative x1, lactic acid 1.3, blood cultures drawn and pending. Chest x-ray shows bilateral perihilar infiltrates. EKG shows no acute ST-T wave changes with prolonged QTc at 499. Treated with ceftriaxone, doxycycline and Solu-Medrol. In the ED, patient had a CIWA score 11. Required 100 mg of phenobarbital at 7 AM and a total of 11 mg of Ativan since 5 AM this morning. Transferred to [facility] under hospitalist service. Upon hospitalist eval, patient was restless and tremulous, requiring multiple doses of ativan for withdrawal. Hallucinating. Given severe symptoms and early in course, transferred to MICU for further management of alcohol withdrawal. 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 Drug abuse ([facility]) ([facility]) Gastroenteritis 11/23/2018 Last Assessment & Plan: Predominantly vomiting; ?food poisoning vs viral gastroenteritis IV hydration PRN antiemetics Hyperlipidemia Hypertension Iritis of left eye 09/20/2018 [facility]my[facility] infarction[facility] ([facility]) ([facility]) Opioid dependence, uncomplicated ([facility]) 10/27/2021 Presence of stent in right coronary artery 10/02/2021 Sciatica Spinal stenosis, lumbar Tobacco abuse Past Surgical History: Procedure Laterality Date ARM SURGERY (HISTORICAL) metal rods in adam upper extremities BACK SURGERY COLONOSCOPY CORONARY ANGIOPLASTY WITH STENT PLACEMENT 09/23/2021 DORIS to proximal RCA FRACTURE SURGERY Family History Problem Relation Name Age of Onset Atrial fibrillation Sister Hyperlipidemia Mother Obesity Mother Asthma Mother Depression Mother Obesity Sister Depression Sister Arthritis Mother High Blood Pressure Maternal Grandmother Diabetes Mother Asthma Maternal Grandmother Substance Abuse Sister Diabetes Father Stroke Paternal Grandfather Arthritis Sister High Blood Pressure Mother Vision loss Maternal Grandmother Diabetes Maternal Grandmother Stroke Maternal Grandmother Arthritis Maternal Grandfather Arthritis Maternal Grandmother Cancer Maternal Grandfather Depression Maternal Grandmother Cancer Brother Diabetes Paternal Grandfather Stroke Paternal Grandmother Diabetes Maternal Grandfather Obesity Maternal Grandmother Depression Maternal Grandfather Arthritis Paternal Grandmother Vision loss Maternal Grandfather Depression Paternal Grandmother Arthritis Paternal Grandfather Social History Socioeconomic History Marital status: Single Spouse name: Not on file Number of children: Not on file Years of education: Not on file Highest education level: Not on file Occupational History Not on file Tobacco Use Smoking status: Every Day Packs/day: 2.00 Types: Cigarettes Smokeless tobacco: Current Vaping Use Vaping Use: Never used Substance and Sexual Activity Alcohol use: Yes Comment: 15 shots of whiskey Drug use: Yes Types: Marijuana Comment: uses methadone, also buys pain meds on the streets Sexual activity: Not on file Other Topics Concern Not on file Social History Narrative Not on file Social Determinants of Health Financial Resource Strain: Not on file Food Insecurity: Not on file Transportation Needs: Not on file Physical Activity: Not on file Stress: Not on file Social Connections: Not on file Intimate Partner Violence: Not At Risk Fear of Current or Ex-Partner: No Emotionally Abused: No Physically Abused: No Sexually Abused: No Housing Stability: Not on file Allergies Allergen Reactions Nickel Rash Prior to Admission medications Medication Sig Start Date End Date Taking? Authorizing Provider aspirin 81 MG EC tablet Take 81 mg by mouth in the morning. Historical Provider, carvedilol (Coreg) 12.5 MG tablet 01/14/22 Historical Provider, lidocaine (Lidoderm) 5 % patch Apply 1 patch topically daily. Remove & discard patch within 12 hours or as directed by MD. 04/24/22 Kd Toledo, DO LISINOPRIL PO Take by mouth. Historical Provider, METHADONE HCL PO Take by mouth. Historical Provider, methocarbamol (Robaxin) 500 MG tablet Take 2 tablets (1,000 mg) by mouth in the morning and 2 tablets (1,000 mg) at noon and 2 tablets (1,000 mg) before bedtime. Do all this for 10 days. 04/24/22 05/04/22 Kd Toledo, DO Ticagrelor (BRILINTA PO) Take by mouth. Historical Provider, Objective: Oxygen Delivery: O2 Flow Rate (L/min): 3 L/min VITALS: BP (!) 150/105 Pulse 96 Temp (!) 35.6 C (96 F) (Temporal) Resp 18 Ht 1.778 m (5' 10) Wt 90.7 kg (200 lb) SpO2 92% BMI 28.70 kg/m CURRENT PULSE OXIMETRY: SpO2: 92 % Review of Systems Reason unable to perform ROS: Patient altered. Constitutional: General Appearance [x]WDWN []Obese []Cachectic []Thin []Ill Eyes: Inspection of Pupils/Irises Pupils round and react: [x]Yes []No Sclera: []Icteric [x]Non-Icteric Inspection of Conjunctiva/Lids Conjunctiva: []Injected [x]Non-Injected Lids: [x]Intact []Lesion Present ENT/Mouth: External Inspection of ears/nose [x] Normal [] Scar/Lesion/Mass Inspection of teeth/lips/gums Dentition: [x][place] Teeth []Dentures Lips/Gums: [x]Intact []Lesion Present Mucosa: [][place] []Moist []Dry Neck: External Appearance Overall Appearance: [x]Normal []Lesion/Mass/Crepitus Present Trachea midline: []Yes []No Thyroid [x]Normal []Enlarged []Tender []Mass []Absent Respiratory: Respiratory effort []Labored [x]Non-Labored [] Mechanically-Ventilated Auscultation []Clear []Crackles []Wheezes []Rhonchi Cardiovascular: Auscultation Rate: []Regular []Irregular [x]Tachycardia []Bradycardia Rhythm: [x]Regular []Irregular Murmur: []Present []Absent Extremities Peripheral Edema: []Present [x]Absent Varicosities: []Present [x]Absent Gastrointestinal: Abdomen Palpation: [x]Soft []Firm []Tender [x]Non-Tender []Distended [x]Non-distended Mass: []Present [x]Absent Bowel Sounds: [x]Present []Absent Hernia: []Present [x]Absent Liver/Spleen: []Hepatosplenomegaly [x]Organomegaly Absent Musculoskeletal: Inspection of Digits and Nails Cyanosis: []Present [x]Absent Clubbing: []Present [x]Absent Ischemia: []Present []Absent Infection: []Present []Absent Extremities CADENA Equally: Except ([]RUE []RLE []LUE []LLE) Strength/Tone: Intact and Normal ([]RUE []RLE []LUE []LLE) Skin: Inspection [x]Normal []Rash []Lesion []Ulcer Palpation [x]Warm []Cool []Dry []Clammy []Nodules []Induration []Skin-tightening Cap-Refill: [] <3 sec [] >3 seconds (delayed) Neurologic: GCS EYE: 4 - Opens spontaneously GCS MOTOR: 6 - Obeys commands for movement GCS VERBAL: 4 - Confused Total GCS: 14 [x] Sensation grossly intact Psych: Mental Status Alert: [x]Yes [] No Oriented: []x0 [x]X1 []X2 []x3 Mood/Affect []Normal []Flat [x]Agitated []Depressed []Anxious []Calm []Sedated []NAD [facility] within last 24 hours- BMP: Recent Labs 09/16/22102 NA 138 K 2.9* CL 99 CO2 33* BUN 9 CREATININE 0.63* CALCIUM 8.3* LFTs: No results for input(s): AST, ALT, PROT, ALBUMIN, BILITOT, BILIRUBINU, ALKPHOS, LIPASE in the last 72 hours. Glucose: Recent Labs 09/16/22102 GLUCOSE 110* Procal: No results for input(s): PROCAL in the last 72 hours. CBC: Recent Labs 09/16/22102 WBC 13.1* HGB 13.0 HCT 37.8* PLT 434 MCV 88.5 RDW 15.0* ABGs: No results for input(s): PHART, CWY1NAJ, PO2ART, ZSR1NZX, SO2ART, D8LLZGTM in the last 72 hours. Lactic Acid: Recent Labs 09/16/22 0328 LACTATE 1.3 INR: No results for input(s): INR in the last 72 hours. Cardiac Injury Profile: Recent Labs 09/16/22102 TROPONINI <0.012 Labs in Last 3 months: No results found for: TSH, VITD25, PSA, INR, GLUF Microbiology- Urine Cx: No results found for: URINECX Blood Cx: Lab Results Component Value Date BLOODCX (A) 09/24/2021 Coagulase negative Staphylococcus species DETECTED. Presumptive identification performed using [email or web address] PCR methodology; confirmatory identification to follow. _ The [employer] BCID2 PCR Panel can detect the following targets: E. faecalis, E. faecium, Staphylococcus spp., S. aureus, S. epidermidis, S. lugdunensis, Streptococcus spp., S. pyogenes (Group A), S. agalactiae (Group B), S. pneumoniae, A. baumannii complex, B. fragilis, H. influenzae, N. meningitidis (encapsulated), P. aeruginosa, S. maltophilia, Enterobacterales, E. cloacae complex, E. coli, K. aerogenes, K. oxytoca, K. pneumoniae, Proteus spp., Salmonella spp., S. marcescens, C. albicans, C. auris, C. glabrata, C. krusei, C. parapsilosis, C. tropicalis, C. neoformans/gattii, and antimicrobial resistance genes: mecA/C, Shivam/B, CTX-M, IMP, KPC, NDM, OXA-48-like, VIM, and mcr-1. BLOODCX Staphylococcus hominis (A) 09/24/2021 BLOODCX 09/24/2021 Isolated: Contamination likely unless additional blood culture sets are found to be positive with the same organism. BLOODCX Staphylococcus epidermidis (A) 09/24/2021 BLOODCX 09/24/2021 Isolated: Contamination likely unless additional blood culture sets are found to be positive with the same organism. Sputum Cx: No results found for: RESPCULT Gram Stain: No results found for: LABGRAM PNA PCR: No results found for: HUMANMETAPNE COVID19: No results found for: COVID19 Legionella Ag: No results found for: LEGIONELLAPN Strep Ag: No results for input(s): STREPPNEUMO in the last 72 hours. Imaging- CXR with bilateral infiltrates. Assessment and Plan: Principal Problem: COPD exacerbation (HCC) Assessment/Plan: #Severe alcohol use with acute alcohol withdrawal and DT's #Community acquired pneumonia, bilateral infiltrates, possible aspiration in setting of alcohol use. #Chest pain, unclear etiology #CAD s/p DORIS RCA (September 2021) #HTN #HLD - Admit to ICU for alcohol withdrawal management. CIWA, ativan, phenobarbital, and precedex as indicated. Caution with QT prolonging agents as he has a h/o prolonged QTc. EKG to be obtained. - Thiamine and Folate. Electrolyte replacement as indicated. - Ceftriaxone and Doxycycline for CAP. Unlikely to be able to send resp culture. - Troponin, EKG, for chest pain. - Continue aspirin, Brilinta. - No h/o COPD, no wheezing on exam, on room air, hold off on steroids. - Consult to addiction medicine GI Prophylaxis: Not indicated DVT Prophylaxis: Lovenox 40 q 24hr - creatinine clearance >30 BMI Classification: Body mass index is 28.7 kg/m . overweight BMI 25-29.9 Disposition: Remain in ICU Status Critical Care Time: 40 Total critical care time caring for this patient with life threatening, unstable organ failure, including direct patient contact, management of life support systems, review of data including imaging and labs, discussions with other team members and physicians, excluding procedures. T [facility] [place] 09-16-2022 Consult note Associated Order (s): IP CONSULT TO MEDICAL CRITICAL CARE Images from the original note were not included. Internal Medicine: MICU Initial Consult Name: El Smith : 1980(41 y.o.) Date: 09/16/22 Attending: Dr. Mert Sutherland MD Subjective: Chief Complaint: Altered mental status, acute alcohol withdrawal HPI: 41 y.o. male with past medical history below who presents with chief complaint listed above. Patient presents to the [place] ED with complaints of chest pain. Symptoms started yesterday throughout the day with radiation to the right side. Had associated shortness of breath, productive cough and diarrhea. Of note, patient endorse heavy ETOH use, drinks 5-10 3 oz liquor bottles daily. Last use at 6 pm on 09/15. No hx of DTs. Currently on Methadone for chronic pain. Denies abdominal pain, nausea, vomiting, constipation, fevers, or chills. Of note, patient was recently admitted in [facility], into detox unit. Left AMA, 08/26/2022. In the ED, BP 132/90, heart rate 91, RR 17, temperature 98.3 F, SPO2 92% on room air. Labs are consistent with a leukocytosis of 13.1, potassium 2.9, serum creatinine 0.63, troponin negative x1, lactic acid 1.3, blood cultures drawn and pending. Chest x-ray shows bilateral perihilar infiltrates. EKG shows no acute ST-T wave changes with prolonged QTc at 499. Treated with ceftriaxone, doxycycline and Solu-Medrol. In the ED, patient had a CIWA score 11. Required 100 mg of phenobarbital at 7 AM and a total of 11 mg of Ativan since 5 AM this morning. Transferred to [facility] under hospitalist service. Upon hospitalist eval, patient was restless and tremulous, requiring multiple doses of ativan for withdrawal. Hallucinating. Given severe symptoms and early in course, transferred to MICU for further management of alcohol withdrawal. 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 Drug abuse ([facility]) ([facility]) Gastroenteritis 11/23/2018 Last Assessment & Plan: Predominantly vomiting; ?food poisoning vs viral gastroenteritis IV hydration PRN antiemetics Hyperlipidemia Hypertension Iritis of left eye 09/20/2018 [facility] ([facility]) ([facility]) Opioid dependence, uncomplicated ([facility]) 10/27/2021 Presence of stent in right coronary artery 10/02/2021 Sciatica Spinal stenosis, lumbar Tobacco abuse Past Surgical History: Procedure Laterality Date ARM SURGERY (HISTORICAL) metal rods in adam upper extremities BACK SURGERY COLONOSCOPY CORONARY ANGIOPLASTY WITH STENT PLACEMENT 09/23/2021 DORIS to proximal RCA FRACTURE SURGERY Family History Problem Relation Name Age of Onset Atrial fibrillation Sister Hyperlipidemia Mother Obesity Mother Asthma Mother Depression Mother Obesity Sister Depression Sister Arthritis Mother High Blood Pressure Maternal Grandmother Diabetes Mother Asthma Maternal Grandmother Substance Abuse Sister Diabetes Father Stroke Paternal Grandfather Arthritis Sister High Blood Pressure Mother Vision loss Maternal Grandmother Diabetes Maternal Grandmother Stroke Maternal Grandmother Arthritis Maternal Grandfather Arthritis Maternal Grandmother Cancer Maternal Grandfather Depression Maternal Grandmother Cancer Brother Diabetes Paternal Grandfather Stroke Paternal Grandmother Diabetes Maternal Grandfather Obesity Maternal Grandmother Depression Maternal Grandfather Arthritis Paternal Grandmother Vision loss Maternal Grandfather Depression Paternal Grandmother Arthritis Paternal Grandfather Social History Socioeconomic History Marital status: Single Spouse name: Not on file Number of children: Not on file Years of education: Not on file Highest education level: Not on file Occupational History Not on file Tobacco Use Smoking status: Every Day Packs/day: 2.00 Types: Cigarettes Smokeless tobacco: Current Vaping Use Vaping Use: Never used Substance and Sexual Activity Alcohol use: Yes Comment: 15 shots of whiskey Drug use: Yes Types: Marijuana Comment: uses methadone, also buys pain meds on the streets Sexual activity: Not on file Other Topics Concern Not on file Social History Narrative Not on file Social Determinants of Health Financial Resource Strain: Not on file Food Insecurity: Not on file Transportation Needs: Not on file Physical Activity: Not on file Stress: Not on file Social Connections: Not on file Intimate Partner Violence: Not At Risk Fear of Current or Ex-Partner: No Emotionally Abused: No Physically Abused: No Sexually Abused: No Housing Stability: Not on file Allergies Allergen Reactions Nickel Rash Prior to Admission medications Medication Sig Start Date End Date Taking? Authorizing Provider aspirin 81 MG EC tablet Take 81 mg by mouth in the morning. Historical Provider, carvedilol (Coreg) 12.5 MG tablet 01/14/22 Historical Provider, lidocaine (Lidoderm) 5 % patch Apply 1 patch topically daily. Remove & discard patch within 12 hours or as directed by MD. 04/24/22 Kd Toledo, DO LISINOPRIL PO Take by mouth. Historical Provider, METHADONE HCL PO Take by mouth. Historical Provider, methocarbamol (Robaxin) 500 MG tablet Take 2 tablets (1,000 mg) by mouth in the morning and 2 tablets (1,000 mg) at noon and 2 tablets (1,000 mg) before bedtime. Do all this for 10 days. 04/24/22 05/04/22 Kd Toledo, DO Ticagrelor (BRILINTA PO) Take by mouth. Historical Provider, Objective: Oxygen Delivery: O2 Flow Rate (L/min): 3 L/min VITALS: BP (!) 150/105 Pulse 96 Temp (!) 35.6 C (96 F) (Temporal) Resp 18 Ht 1.778 m (5' 10) Wt 90.7 kg (200 lb) SpO2 92% BMI 28.70 kg/m CURRENT PULSE OXIMETRY: SpO2: 92 % Review of Systems Reason unable to perform ROS: Patient altered. Constitutional: General Appearance [x]WDWN []Obese []Cachectic []Thin []Ill Eyes: Inspection of Pupils/Irises Pupils round and react: [x]Yes []No Sclera: []Icteric [x]Non-Icteric Inspection of Conjunctiva/Lids Conjunctiva: []Injected [x]Non-Injected Lids: [x]Intact []Lesion Present ENT/Mouth: External Inspection of ears/nose [x] Normal [] Scar/Lesion/Mass Inspection of teeth/lips/gums Dentition: [x][place] Teeth []Dentures Lips/Gums: [x]Intact []Lesion Present Mucosa: [][place] []Moist []Dry Neck: External Appearance Overall Appearance: [x]Normal []Lesion/Mass/Crepitus Present Trachea midline: []Yes []No Thyroid [x]Normal []Enlarged []Tender []Mass []Absent Respiratory: Respiratory effort []Labored [x]Non-Labored [] Mechanically-Ventilated Auscultation []Clear []Crackles []Wheezes []Rhonchi Cardiovascular: Auscultation Rate: []Regular []Irregular [x]Tachycardia []Bradycardia Rhythm: [x]Regular []Irregular Murmur: []Present []Absent Extremities Peripheral Edema: []Present [x]Absent Varicosities: []Present [x]Absent Gastrointestinal: Abdomen Palpation: [x]Soft []Firm []Tender [x]Non-Tender []Distended [x]Non-distended Mass: []Present [x]Absent Bowel Sounds: [x]Present []Absent Hernia: []Present [x]Absent Liver/Spleen: []Hepatosplenomegaly [x]Organomegaly Absent Musculoskeletal: Inspection of Digits and Nails Cyanosis: []Present [x]Absent Clubbing: []Present [x]Absent Ischemia: []Present []Absent Infection: []Present []Absent Extremities CADENA Equally: Except ([]RUE []RLE []LUE []LLE) Strength/Tone: Intact and Normal ([]RUE []RLE []LUE []LLE) Skin: Inspection [x]Normal []Rash []Lesion []Ulcer Palpation [x]Warm []Cool []Dry []Clammy []Nodules []Induration []Skin-tightening Cap-Refill: [] <3 sec [] >3 seconds (delayed) Neurologic: GCS EYE: 4 - Opens spontaneously GCS MOTOR: 6 - Obeys commands for movement GCS VERBAL: 4 - Confused Total GCS: 14 [x] Sensation grossly intact Psych: Mental Status Alert: [x]Yes [] No Oriented: []x0 [x]X1 []X2 []x3 Mood/Affect []Normal []Flat [x]Agitated []Depressed []Anxious []Calm []Sedated []NAD [facility] within last 24 hours- BMP: Recent Labs 09/16/22102 NA 138 K 2.9* CL 99 CO2 33* BUN 9 CREATININE 0.63* CALCIUM 8.3* LFTs: No results for input(s): AST, ALT, PROT, ALBUMIN, BILITOT, BILIRUBINU, ALKPHOS, LIPASE in the last 72 hours. Glucose: Recent Labs 09/16/22102 GLUCOSE 110* Procal: No results for input(s): PROCAL in the last 72 hours. CBC: Recent Labs 09/16/22102 WBC 13.1* HGB 13.0 HCT 37.8* PLT 434 MCV 88.5 RDW 15.0* ABGs: No results for input(s): PHART, KUM0VYU, PO2ART, IKT6TLH, SO2ART, F7MXAPUW in the last 72 hours. Lactic Acid: Recent Labs 09/16/22 0328 LACTATE 1.3 INR: No results for input(s): INR in the last 72 hours. Cardiac Injury Profile: Recent Labs 09/16/22102 TROPONINI <0.012 Labs in Last 3 months: No results found for: TSH, VITD25, PSA, INR, GLUF Microbiology- Urine Cx: No results found for: URINECX Blood Cx: Lab Results Component Value Date BLOODCX (A) 09/24/2021 Coagulase negative Staphylococcus species DETECTED. Presumptive identification performed using [employer] PCR methodology; confirmatory identification to follow. _ The [employer] BCID2 PCR Panel can detect the following targets: E. faecalis, E. faecium, Staphylococcus spp., S. aureus, S. epidermidis, S. lugdunensis, Streptococcus spp., S. pyogenes (Group A), S. agalactiae (Group B), S. pneumoniae, A. baumannii complex, B. fragilis, H. influenzae, N. meningitidis (encapsulated), P. aeruginosa, S. maltophilia, Enterobacterales, E. cloacae complex, E. coli, K. aerogenes, K. oxytoca, K. pneumoniae, Proteus spp., Salmonella spp., S. marcescens, C. albicans, C. auris, C. glabrata, C. krusei, C. parapsilosis, C. tropicalis, C. neoformans/gattii, and antimicrobial resistance genes: mecA/C, Shivam/B, CTX-M, IMP, KPC, NDM, OXA-48-like, VIM, and mcr-1. BLOODCX Staphylococcus hominis (A) 09/24/2021 BLOODCX 09/24/2021 Isolated: Contamination likely unless additional blood culture sets are found to be positive with the same organism. BLOODCX Staphylococcus epidermidis (A) 09/24/2021 BLOODCX 09/24/2021 Isolated: Contamination likely unless additional blood culture sets are found to be positive with the same organism. Sputum Cx: No results found for: RESPCULT Gram Stain: No results found for: LABGRAM PNA PCR: No results found for: HUMANMETAPNE COVID19: No results found for: COVID19 Legionella Ag: No results found for: LEGIONELLAPN Strep Ag: No results for input(s): STREPPNEUMO in the last 72 hours. Imaging- CXR with bilateral infiltrates. Assessment and Plan: Principal Problem: COPD exacerbation (HCC) Assessment/Plan: #Severe alcohol use with acute alcohol withdrawal and DT's #Community acquired pneumonia, bilateral infiltrates, possible aspiration in setting of alcohol use. #Chest pain, unclear etiology #CAD s/p DORIS RCA (September 2021) #HTN #HLD - Admit to ICU for alcohol withdrawal management. CIWA, ativan, phenobarbital, and precedex as indicated. Caution with QT prolonging agents as he has a h/o prolonged QTc. EKG to be obtained. - Thiamine and Folate. Electrolyte replacement as indicated. - Ceftriaxone and Doxycycline for CAP. Unlikely to be able to send resp culture. - Troponin, EKG, for chest pain. - Continue aspirin, Brilinta. - No h/o COPD, no wheezing on exam, on room air, hold off on steroids. - Consult to addiction medicine GI Prophylaxis: Not indicated DVT Prophylaxis: Lovenox 40 q 24hr - creatinine clearance >30 BMI Classification: Body mass index is 28.7 kg/m . overweight BMI 25-29.9 Disposition: Remain in ICU Status Critical Care Time: 40 Total critical care time caring for this patient with life threatening, unstable organ failure, including direct patient contact, management of life support systems, review of data including imaging and labs, discussions with other team members and physicians, excluding procedures. documented in this encounter [facility] [place] 09-16-2022 History and physical note Images from the original note were not included. Attending History and Physical Admit Date: 09/16/2022 PCP: KAY KERR CHIEF COMPLAINT: Chest pain, shortness of breath Reason for Admission: Severe alcohol use disorder and withdrawal, PNA, Hypokalemia, leukocytosis History Obtained From: patient HISTORY OF PRESENT ILLNESS: El is a 41 y.o. male with past medical history below who presents with chief complaint listed above. Patient presents to the [place] ED with complaints of chest pain. Symptoms started yesterday throughout the day with radiation to the right side. Had associated shortness of breath, productive cough and diarrhea. Of note, patient endorse heavy ETOH use, drinks 5-10 3 oz liquor bottles daily. Last use at 6 pm on 09/15. No hx of DTs. Currently on Methadone for chronic pain. Denies abdominal pain, nausea, vomiting, constipation, fevers, or chills. In the ED, BP 132/90, heart rate 91, RR 17, temperature 98.3 F, SPO2 92% on room air. Labs are consistent with a leukocytosis of 13.1, potassium 2.9, serum creatinine 0.63, troponin negative x1, lactic acid 1.3, blood cultures drawn and pending. Chest x-ray shows bilateral perihilar infiltrates. EKG shows no acute ST-T wave changes with prolonged QTc at 499. Treated with ceftriaxone, doxycycline and Solu-Medrol. In the ED, patient had a CIWA score 11. Required 100 mg of phenobarbital at 7 AM and a total of 11 mg of Ativan since 5 AM this morning. Transferred to [facility] under hospitalist service. Upon my evaluation, patient restless and tremulous. Vital signs showed mild hypertension but otherwise stable. Patient alert and oriented x 3 on examination. Trying to get out of bed and hallucinating. 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 Drug abuse ([facility]) ([facility]) Gastroenteritis 11/23/2018 Last Assessment & Plan: Predominantly vomiting; ?food poisoning vs viral gastroenteritis IV hydration PRN antiemetics Hyperlipidemia Hypertension Iritis of left eye 09/20/2018 [facility] (myocardial infarction) ([facility]) ([facility]) Opioid dependence, uncomplicated ([facility]) 10/27/2021 Presence of stent in right coronary artery 10/02/2021 Sciatica Spinal stenosis, lumbar Tobacco abuse Past Surgical History: Past Surgical History: Procedure Laterality Date ARM SURGERY (HISTORICAL) metal rods in adam upper extremities BACK SURGERY COLONOSCOPY CORONARY ANGIOPLASTY WITH STENT PLACEMENT 09/23/2021 DORIS to proximal RCA FRACTURE SURGERY Social History: Social History Socioeconomic History Marital status: Single Spouse name: Not on file Number of children: Not on file Years of education: Not on file Highest education level: Not on file Occupational History Not on file Tobacco Use Smoking status: Every Day Packs/day: 2.00 Types: Cigarettes Smokeless tobacco: Current Vaping Use Vaping Use: Never used Substance and Sexual Activity Alcohol use: Yes Comment: 15 shots of whiskey Drug use: Yes Types: Marijuana Comment: uses methadone, also buys pain meds on the streets Sexual activity: Not on file Other Topics Concern Not on file Social History Narrative Not on file Social Determinants of Health Financial Resource Strain: Not on file Food Insecurity: Not on file Transportation Needs: Not on file Physical Activity: Not on file Stress: Not on file Social Connections: Not on file Intimate Partner Violence: Not At Risk Fear of Current or Ex-Partner: No Emotionally Abused: No Physically Abused: No Sexually Abused: No Housing Stability: Not on file Family History: Family History Problem Relation Name Age of Onset Atrial fibrillation Sister Hyperlipidemia Mother Obesity Mother Asthma Mother Depression Mother Obesity Sister Depression Sister Arthritis Mother High Blood Pressure Maternal Grandmother Diabetes Mother Asthma Maternal Grandmother Substance Abuse Sister Diabetes Father Stroke Paternal Grandfather Arthritis Sister High Blood Pressure Mother Vision loss Maternal Grandmother Diabetes Maternal Grandmother Stroke Maternal Grandmother Arthritis Maternal Grandfather Arthritis Maternal Grandmother Cancer Maternal Grandfather Depression Maternal Grandmother Cancer Brother Diabetes Paternal Grandfather Stroke Paternal Grandmother Diabetes Maternal Grandfather Obesity Maternal Grandmother Depression Maternal Grandfather Arthritis Paternal Grandmother Vision loss Maternal Grandfather Depression Paternal Grandmother Arthritis Paternal Grandfather Medications Prior to Admission: No current facility-administered medications on file prior to encounter. Current Outpatient Medications on File Prior to Encounter Medication Sig Dispense Refill aspirin 81 MG EC tablet Take 81 mg by mouth in the morning. carvedilol (Coreg) 12.5 MG tablet lidocaine (Lidoderm) 5 % patch Apply 1 patch topically daily. Remove & discard patch within 12 hours or as directed by MD. 15 patch 0 LISINOPRIL PO Take by mouth. METHADONE HCL PO Take by mouth. methocarbamol (Robaxin) 500 MG tablet Take 2 tablets (1,000 mg) by mouth in the morning and 2 tablets (1,000 mg) at noon and 2 tablets (1,000 mg) before bedtime. Do all this for 10 days. 60 tablet 0 Ticagrelor (BRILINTA PO) Take by mouth. Allergies: Allergies Allergen Reactions Nickel Rash REVIEW OF SYSTEMS: Constitutional: Negative for fever, chills, activity change and unexpected weight change. HEENT: Negative for congestion, postnasal drip and sneezing. Eyes: Negative for itching and visual disturbance. Respiratory: Positive for cough and SOB. Negative for apnea, choking, chest tightness, wheezing and stridor. Cardiovascular: Positive for chest pain. Gastrointestinal: Negative for nausea, vomiting, abdominal pain, diarrhea and blood in stool. Genitourinary: Negative for dysuria, frequency and flank pain. Musculoskeletal: Negative for myalgias and joint swelling. Skin: Negative for rash. Neurological: Negative for dizziness, tremors, seizures, syncope, facial asymmetry, speech difficulty, weakness, numbness and headaches. Hematological: Negative for adenopathy. Psychiatric/Behavioral: Negative for suicidal ideas, behavioral problems, self-injury and dysphoric mood. Vitals: BP (!) 147/116 (BP Location: Left arm, Patient Position: Sitting) Pulse 85 Temp (!) 35.6 C (96 F) (Temporal) Resp 18 Ht 5' 10 (1.778 m) Wt 200 lb (90.7 kg) SpO2 92% BMI 28.70 kg/m BMI Classification: Overweight (BMI 25.0-29.9) Pulse Ox: SpO2 Av % Min: 88 % Max: 96 % Supplemental O2: O2 Flow Rate (L/min): 3 L/min PHYSICAL EXAM: General appearance: No apparent distress, appears stated age and cooperative with exam. HEENT: Normal cephalic, atraumatic without obvious deformity. Pupils equal, round, and reactive to light. Extra ocular muscles intact. Conjunctivae/corneas clear. Neck: Supple, with full range of motion. No jugular venous distention. Trachea midline. No lymphadenopathy. Respiratory: Normal respiratory effort. Clear to auscultation, bilaterally without Rales/Wheezes/Rhonchi. Cardiovascular: Regular rate and rhythm with normal S1/S2 without murmurs, rubs or gallops. Abdomen: Soft, non-tender, non-distended with normal bowel sounds. No rebound or guarding. Musculoskeletal: No clubbing, cyanosis or edema bilaterally. Full range of motion without deformity, +2 peripheral pulses in all extremities. Skin: Skin color, texture, turgor normal. No rashes or lesions. Neurologic: Neurovascularly intact without any focal sensory/motor deficits. Cranial nerves: II-XII intact, grossly non-focal. Psychiatric: Alert and oriented, thought content appropriate, normal insight. DATA: CBC: Recent Labs 09/16/22 0103 WBC 13.1* RBC 4.27* HGB 13.0 HCT 37.8* MCV 88.5 RDW 15.0* PLT 434 BMP: Recent Labs 09/16/22 0103 NA 138 K 2.9* CL 99 CO2 33* BUN 9 CREATININE 0.63* GLUCOSE 110* CALCIUM 8.3* ANIONGAP 6 LIVER PROFILE:No results for input(s): AST, ALT, BILITOT, ALKPHOS, PROT in the last 72 hours. No lab exists for component: LABALBU PT/INR: No results for input(s): PROTIME, INR in the last 72 hours. CARDIAC ENZYMES: Recent Labs 09/16/22 0103 TROPONINI <0.012 Procalcitonin: No results found for: PROCAL Urine Culture: No results found for this or any previous visit. COVID-19 PCR: No results for input(s): COVID19 in the last 72 hours. I reviewed: [x] laboratory results [x] radiographic results At the time of today's encounter. Pt was advised of the results. IMPRESSION: Severe alcohol use disorder with withdrawal Community-acquired pneumonia Hypokalemia Prolonged Qtc Leukocytosis CAD s/p DORIS RCA (September 2021) Hx of [facility] HTN HLD Chronic lumbago Lumbar stenosis Anxiety Medical Decision Making: -On my evaluation, patient was going through active withdrawals. Alert and oriented x3 but actively hallucinating and restless. Last drink was at 6 pm on 09/15. Patient has been given 100 mg of phenobarbital at 7 AM and 11 mg of Ativan total since 5 AM. Symptoms seem to be worsening and will likely need Precedex. ICU consulted and discussed case with Dr. Sutherland to accepted patient for transfer. - Start on Vancomycin and Cefepime for PNA coverage. Possible aspiration event and COMMUNITY RELATIONS DIRECTOR advised. Will defer remaninig orders to ICU team as patient being transferred as a firect admission. - Trend troponins and repeat EKG -Discussed with ED provider and agree with their plan for admission -PT/OT eval/increase activity -am labs, replace lytes prn -vitals per routine -home meds as ordered -DVT prophylaxis: [] Lovenox [] Heparin [] SCDs [x] Encourage ambulation [] Already on Anticoagulation Anticipated Discharge - Date - TBD - Location - Home - Pending the following - Transfer to ICU Total time spent (which include face to face and non face to face encounters) : 60 minutes Toxic drug monitoring/narrow therapeutic index drug monitoring : # Drug name : # Route administered : # Method of monitoring : Extended Emergency Contact Information Primary Emergency Contact: Ruth Maurer Relation: Child Secondary Emergency Contact: LuisLouise Mobile Relation: Sister Preferred language: Indian Toys Inspector needed? No Code status: No Order -see below for additional orders, further recommendations to follow Orders Placed This Encounter Procedures Blood culture #1 - Suspected Infection Blood culture #2 - Suspected Infection XR chest 1 view Basic metabolic panel CBC auto differential Troponin I Lactic acid, sepsis, with reflex if elevated Vital Signs Notify Provider (Other) Alcohol and or drug assessment Telemetry monitoring for Acute Respiratory Failure ECG 12 lead (Now) Insert peripheral IV Admit to inpatient Seizure precautions Fall precautions Please forward a copy of this H&P to the patient's PCP. Thank you. [employer] Phone: 09-16-2022 History and physical note Images from the original note were not included. Attending History and Physical Admit Date: 09/16/2022 PCP: KAY KERR CHIEF COMPLAINT: Chest pain, shortness of breath Reason for Admission: Severe alcohol use disorder and withdrawal, PNA, Hypokalemia, leukocytosis History Obtained From: patient HISTORY OF PRESENT ILLNESS: El is a 41 y.o. male with past medical history below who presents with chief complaint listed above. Patient presents to the [place] ED with complaints of chest pain. Symptoms started yesterday throughout the day with radiation to the right side. Had associated shortness of breath, productive cough and diarrhea. Of note, patient endorse heavy ETOH use, drinks 5-10 3 oz liquor bottles daily. Last use at 6 pm on 09/15. No hx of DTs. Currently on Methadone for chronic pain. Denies abdominal pain, nausea, vomiting, constipation, fevers, or chills. In the ED, BP 132/90, heart rate 91, RR 17, temperature 98.3 F, SPO2 92% on room air. Labs are consistent with a leukocytosis of 13.1, potassium 2.9, serum creatinine 0.63, troponin negative x1, lactic acid 1.3, blood cultures drawn and pending. Chest x-ray shows bilateral perihilar infiltrates. EKG shows no acute ST-T wave changes with prolonged QTc at 499. Treated with ceftriaxone, doxycycline and Solu-Medrol. In the ED, patient had a CIWA score 11. Required 100 mg of phenobarbital at 7 AM and a total of 11 mg of Ativan since 5 AM this morning. Transferred to [facility] under hospitalist service. Upon my evaluation, patient restless and tremulous. Vital signs showed mild hypertension but otherwise stable. Patient alert and oriented x 3 on examination. Trying to get out of bed and hallucinating. 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 Drug abuse ([facility]) ([facility]) Gastroenteritis 11/23/2018 Last Assessment & Plan: Predominantly vomiting; ?food poisoning vs viral gastroenteritis IV hydration PRN antiemetics Hyperlipidemia Hypertension Iritis of left eye 09/20/2018 [facility] (myocardial infarction) ([facility]) ([facility]) Opioid dependence, uncomplicated ([facility]) 10/27/2021 Presence of stent in right coronary artery 10/02/2021 Sciatica Spinal stenosis, lumbar Tobacco abuse Past Surgical History: Past Surgical History: Procedure Laterality Date ARM SURGERY (HISTORICAL) metal rods in adam upper extremities BACK SURGERY COLONOSCOPY CORONARY ANGIOPLASTY WITH STENT PLACEMENT 09/23/2021 DORIS to proximal RCA FRACTURE SURGERY Social History: Social History Socioeconomic History Marital status: Single Spouse name: Not on file Number of children: Not on file Years of education: Not on file Highest education level: Not on file Occupational History Not on file Tobacco Use Smoking status: Every Day Packs/day: 2.00 Types: Cigarettes Smokeless tobacco: Current Vaping Use Vaping Use: Never used Substance and Sexual Activity Alcohol use: Yes Comment: 15 shots of whiskey Drug use: Yes Types: Marijuana Comment: uses methadone, also buys pain meds on the streets Sexual activity: Not on file Other Topics Concern Not on file Social History Narrative Not on file Social Determinants of Health Financial Resource Strain: Not on file Food Insecurity: Not on file Transportation Needs: Not on file Physical Activity: Not on file Stress: Not on file Social Connections: Not on file Intimate Partner Violence: Not At Risk Fear of Current or Ex-Partner: No Emotionally Abused: No Physically Abused: No Sexually Abused: No Housing Stability: Not on file Family History: Family History Problem Relation Name Age of Onset Atrial fibrillation Sister Hyperlipidemia Mother Obesity Mother Asthma Mother Depression Mother Obesity Sister Depression Sister Arthritis Mother High Blood Pressure Maternal Grandmother Diabetes Mother Asthma Maternal Grandmother Substance Abuse Sister Diabetes Father Stroke Paternal Grandfather Arthritis Sister High Blood Pressure Mother Vision loss Maternal Grandmother Diabetes Maternal Grandmother Stroke Maternal Grandmother Arthritis Maternal Grandfather Arthritis Maternal Grandmother Cancer Maternal Grandfather Depression Maternal Grandmother Cancer Brother Diabetes Paternal Grandfather Stroke Paternal Grandmother Diabetes Maternal Grandfather Obesity Maternal Grandmother Depression Maternal Grandfather Arthritis Paternal Grandmother Vision loss Maternal Grandfather Depression Paternal Grandmother Arthritis Paternal Grandfather Medications Prior to Admission: No current facility-administered medications on file prior to encounter. Current Outpatient Medications on File Prior to Encounter Medication Sig Dispense Refill aspirin 81 MG EC tablet Take 81 mg by mouth in the morning. carvedilol (Coreg) 12.5 MG tablet lidocaine (Lidoderm) 5 % patch Apply 1 patch topically daily. Remove & discard patch within 12 hours or as directed by MD. 15 patch 0 LISINOPRIL PO Take by mouth. METHADONE HCL PO Take by mouth. methocarbamol (Robaxin) 500 MG tablet Take 2 tablets (1,000 mg) by mouth in the morning and 2 tablets (1,000 mg) at noon and 2 tablets (1,000 mg) before bedtime. Do all this for 10 days. 60 tablet 0 Ticagrelor (BRILINTA PO) Take by mouth. Allergies: Allergies Allergen Reactions Nickel Rash REVIEW OF SYSTEMS: Constitutional: Negative for fever, chills, activity change and unexpected weight change. HEENT: Negative for congestion, postnasal drip and sneezing. Eyes: Negative for itching and visual disturbance. Respiratory: Positive for cough and SOB. Negative for apnea, choking, chest tightness, wheezing and stridor. Cardiovascular: Positive for chest pain. Gastrointestinal: Negative for nausea, vomiting, abdominal pain, diarrhea and blood in stool. Genitourinary: Negative for dysuria, frequency and flank pain. Musculoskeletal: Negative for myalgias and joint swelling. Skin: Negative for rash. Neurological: Negative for dizziness, tremors, seizures, syncope, facial asymmetry, speech difficulty, weakness, numbness and headaches. Hematological: Negative for adenopathy. Psychiatric/Behavioral: Negative for suicidal ideas, behavioral problems, self-injury and dysphoric mood. Vitals: BP (!) 147/116 (BP Location: Left arm, Patient Position: Sitting) Pulse 85 Temp (!) 35.6 C (96 F) (Temporal) Resp 18 Ht 5' 10 (1.778 m) Wt 200 lb (90.7 kg) SpO2 92% BMI 28.70 kg/m BMI Classification: Overweight (BMI 25.0-29.9) Pulse Ox: SpO2 Av % Min: 88 % Max: 96 % Supplemental O2: O2 Flow Rate (L/min): 3 L/min PHYSICAL EXAM: General appearance: No apparent distress, appears stated age and cooperative with exam. HEENT: Normal cephalic, atraumatic without obvious deformity. Pupils equal, round, and reactive to light. Extra ocular muscles intact. Conjunctivae/corneas clear. Neck: Supple, with full range of motion. No jugular venous distention. Trachea midline. No lymphadenopathy. Respiratory: Normal respiratory effort. Clear to auscultation, bilaterally without Rales/Wheezes/Rhonchi. Cardiovascular: Regular rate and rhythm with normal S1/S2 without murmurs, rubs or gallops. Abdomen: Soft, non-tender, non-distended with normal bowel sounds. No rebound or guarding. Musculoskeletal: No clubbing, cyanosis or edema bilaterally. Full range of motion without deformity, +2 peripheral pulses in all extremities. Skin: Skin color, texture, turgor normal. No rashes or lesions. Neurologic: Neurovascularly intact without any focal sensory/motor deficits. Cranial nerves: II-XII intact, grossly non-focal. Psychiatric: Alert and oriented, thought content appropriate, normal insight. DATA: CBC: Recent Labs 09/16/22102 WBC 13.1* RBC 4.27* HGB 13.0 HCT 37.8* MCV 88.5 RDW 15.0* PLT 434 BMP: Recent Labs 09/16/22102 NA 138 K 2.9* CL 99 CO2 33* BUN 9 CREATININE 0.63* GLUCOSE 110* CALCIUM 8.3* ANIONGAP 6 LIVER PROFILE:No results for input(s): AST, ALT, BILITOT, ALKPHOS, PROT in the last 72 hours. No lab exists for component: LABALBU PT/INR: No results for input(s): PROTIME, INR in the last 72 hours. CARDIAC ENZYMES: Recent Labs 09/16/22102 TROPONINI <0.012 Procalcitonin: No results found for: PROCAL Urine Culture: No results found for this or any previous visit. COVID-19 PCR: No results for input(s): COVID19 in the last 72 hours. I reviewed: [x] laboratory results [x] radiographic results At the time of today's encounter. Pt was advised of the results. IMPRESSION: Severe alcohol use disorder with withdrawal Community-acquired pneumonia Hypokalemia Prolonged Qtc Leukocytosis CAD s/p DORIS RCA (September 2021) Hx of [place] HTN HLD Chronic lumbago Lumbar stenosis Anxiety Medical Decision Making: -On my evaluation, patient was going through active withdrawals. Alert and oriented x3 but actively hallucinating and restless. Last drink was at 6 pm on 09/15. Patient has been given 100 mg of phenobarbital at 7 AM and 11 mg of Ativan total since 5 AM. Symptoms seem to be worsening and will likely need Precedex. ICU consulted and discussed case with Dr. Sutherland to accepted patient for transfer. - Start on Vancomycin and Cefepime for PNA coverage. Possible aspiration event and COMMUNITY RELATIONS DIRECTOR advised. Will defer remaninig orders to ICU team as patient being transferred as a firect admission. - Trend troponins and repeat EKG -Discussed with ED provider and agree with their plan for admission -PT/OT eval/increase activity -am labs, replace lytes prn -vitals per routine -home meds as ordered -DVT prophylaxis: [] Lovenox [] Heparin [] SCDs [x] Encourage ambulation [] Already on Anticoagulation Anticipated Discharge - Date - TBD - Location - Home - Pending the following - Transfer to ICU Total time spent (which include face to face and non face to face encounters) : 60 minutes Toxic drug monitoring/narrow therapeutic index drug monitoring : # Drug name : # Route administered : # Method of monitoring : Extended Emergency Contact Information Primary Emergency Contact: Ruth Maurer Relation: Child Secondary Emergency Contact: Louise Smith Mobile Relation: Sister Preferred language: Indian Toys Inspector needed? No Code status: No Order -see below for additional orders, further recommendations to follow Orders Placed This Encounter Procedures Blood culture #1 - Suspected Infection Blood culture #2 - Suspected Infection XR chest 1 view Basic metabolic panel CBC auto differential Troponin I Lactic acid, sepsis, with reflex if elevated Vital Signs Notify Provider (Other) Alcohol and or drug assessment Telemetry monitoring for Acute Respiratory Failure ECG 12 lead (Now) Insert peripheral IV Admit to inpatient Seizure precautions Fall precautions Please forward a copy of this H&P to the patient's PCP. Thank you. documented in this encounter [facility] [place] 09-16-2022 Miscellaneous Notes Paged to bedside for non-emergent assessment r/t pt withdrawal symptoms. Pt diaphoretic with tremors hallucinations and tactile disturbances. Pt had been given ativan and phenobarb and was still very anxious. Dr. Nelson placed critical care consult. Pt transferred to ICU for precedex drip. documented in this encounter [facility] [place] 09-16-2022 Note Formatting of this n ote might be different from the original. Paged to bedside for non-emergent assessment r/t pt withdrawal symptoms. Pt diaphoretic with tremors hallucinations and tactile disturbances. Pt had been given ativan and phenobarb and was still very anxious. Dr. Nelson placed critical care consult. Pt transferred to ICU for precedex drip. [facility] [place] 09-16-2022 Note Formatting of this n ote might be different from the original. Paged to bedside for non-emergent assessment r/t pt withdrawal symptoms. Pt diaphoretic with tremors hallucinations and tactile disturbances. Pt had been given ativan and phenobarb and was still very anxious. Dr. Nelson placed critical care consult. Pt transferred to ICU for precedex drip. [facility] [place] 09-16-2022 Emergency department Note Physician's EMS here and report given. Pt states is not feeling much better than arrival. Alert and answers questions appropriately. Restless in bed and has monitor cords and oxygen off-pulse ox 95% on room air. Scooted self to end of bed and walked with assist to EMS cot Salina Ahuja RN 09/16/22 0810 [facility] [place] 09-16-2022 Emergency department Note Physician's EMS here and report given. Pt states is not feeling much better than arrival. Alert and answers questions appropriately. Restless in bed and has monitor cords and oxygen off-pulse ox 95% on room air. Scooted self to end of bed and walked with assist to EMS cot Salina Ahuja RN 09/16/22 0810 Report called to Di on 2E. Mother contacted and updated on bed status and transportation status. Patient provided with pop and pudding, assisted with repositioning. Call light in reach. Seizure precautions remain in place. Patient denies further needs at this time. Subha Mcallister RN 09/16/22 0648 After RN discussion with patient, patient willing to transport to [facility] via ambulance. Subha Mcallister RN 09/16/22 6734 Patient visibly sweating, restless, and with tremors, patient is a daily drinker; last drink at 6pm. CIWA scale performed, score of 11. notified. Subha Mcallister RN 09/16/22 2623 Patient satting 87% on room air consistently, notified; patient placed on 3L nasal cannula and satting 91%. Patient reports that he feels like his breathing is better than when he came in prior to RN applying oxygen. Subha Mcallister RN 09/16/22 0246 Emergency Department Encounter [facility] ED Patient: El Smith : 1980 Date of Evaluation: 09/16/2022 ED Provider: Prince Alfaro DO Chief Complaint Chief Complaint Patient presents with Chest Pain Shortness of Breath Chest pain started 09/15 in AM with accompanied shortness of breath; patient took naproxen one hour prior to arrival; pain starts in the center of the chest and radiates around right breast [place] El Smith is a 41 y.o. male who presents to the emergency department complaining of chest pain and shortness of breath. Patient reports he has had chest pain and shortness of breath throughout the day today. Pain is in the center of his chest and radiates to the right side. Has history of [facility] in the past and states this feels different. He also feels shortness of breath. Pain onset was after a coughing spell. He has had some GI symptoms including diarrhea as well. Additional history obtained from : n/a Barriers to obtaining history from patient: n/a ROS: Review of Systems completed as follows: (Bold = positive, Not bold = negative) GENERAL: fevers, chills, malaise ENT: runny nose, congestion, sore throat, ear pain NEURO: weakness, numbness of tingling, headache CARDIOVASCULAR: chest pain, syncope PULMONARY: shortness of breath, cough, wheezing GASTROINTESTINAL: nausea, vomiting, abdominal pain, diarrhea, constipation, MUSCULOSKELETAL: pain GENITAL/URINARY: dysuria, hematuria, increased urinary frequency, hesitancy, flank pain SKIN: rash, lesions, wound Past History 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 Drug abuse ([facility]) ([facility]) Gastroenteritis 11/23/2018 Last Assessment & Plan: Predominantly vomiting; ?food poisoning vs viral gastroenteritis IV hydration PRN antiemetics Hyperlipidemia Hypertension Iritis of left eye 09/20/2018 [facility] (myocardial infarction) ([facility]) ([facility]) Opioid dependence, uncomplicated ([facility]) 10/27/2021 Presence of stent in right coronary artery 10/02/2021 Sciatica Spinal stenosis, lumbar Tobacco abuse Past Surgical History: Procedure Laterality Date ARM SURGERY (HISTORICAL) metal rods in adam upper extremities BACK SURGERY COLONOSCOPY CORONARY ANGIOPLASTY WITH STENT PLACEMENT 09/23/2021 DORIS to proximal RCA FRACTURE SURGERY Social History Socioeconomic History Marital status: Single Tobacco Use Smoking status: Every Day Packs/day: 2.00 Types: Cigarettes Smokeless tobacco: Current Vaping Use Vaping Use: Never used Substance and Sexual Activity Alcohol use: Yes Comment: 15 shots of whiskey Drug use: Yes Types: Marijuana Comment: uses methadone, also buys pain meds on the streets Social Determinants of Health Intimate Partner Violence: Not At Risk Fear of Current or Ex-Partner: No Emotionally Abused: No Physically Abused: No Sexually Abused: No I have reviewed the history above as provided by nursing notes. Medications/Allergies Previous Medications ASPIRIN 81 MG EC TABLET Take 81 mg by mouth in the morning. CARVEDILOL (COREG) 12.5 MG TABLET LIDOCAINE (LIDODERM) 5 % PATCH Apply 1 patch topically daily. Remove & discard patch within 12 hours or as directed by MD. LISINOPRIL PO Take by mouth. METHADONE HCL PO Take by mouth. METHOCARBAMOL (ROBAXIN) 500 MG TABLET Take 2 tablets (1,000 mg) by mouth in the morning and 2 tablets (1,000 mg) at noon and 2 tablets (1,000 mg) before bedtime. Do all this for 10 days. TICAGRELOR (BRILINTA PO) Take by mouth. Allergies Allergen Reactions Nickel Rash I have reviewed the history above as provided by nursing notes. Physical Exam ED Triage Vitals [09/16/22 0053] Temp Heart Rate Resp BP 36.8 C (98.3 F) 91 17 (!) 132/90 SpO2 Temp src Heart Rate Source Patient Position 92 % -- Monitor -- BP Location FiO2 (%) -- -- GENERAL: The patient appears nourished and normally developed. Vital signs as documented. EYES: PERRL. No scleral icterus or orbital trauma noted. HEENT: Mucous membranes moist. Nares patent without copious rhinorrhea. LUNGS: Diffuse expiratory wheezing. CARDIAC: Rhythm is regular. No murmur appreciated ABDOMEN: Nontender, soft, with no obvious masses, and no peritoneal signs. EXTREMITIES: Non edematous, with no obvious deformities. SKIN: Good color, with no significant rashes. No pallor. NEURO: No obvious neurological deficits, normal sensation and strength bilaterally. Diagnostics Labs: Results for orders placed or performed during the hospital encounter of 09/16/22 Basic metabolic panel Result Value Ref Range SODIUM 138 135 - 145 mmol/L POTASSIUM 2.9 (L) 3.5 - 5.1 mmol/L CHLORIDE 99 98 - 107 mmol/L CARBON DIOXIDE 33 (H) 22 - 30 mmol/L UREA NITROGEN 9 9 - 20 mg/dL CREATININE 0.63 (L) 0.66 - 1.25 mg/dL GLUCOSE 110 (H) 70 - 100 mg/dL CALCIUM 8.3 (L) 8.4 - 10.4 mg/dL ANION GAP 6 3 - 13 mmol/L eGFR >90.0 >60.0 mL/min/1.73m*2 CBC auto differential Result Value Ref Range Auto WBC 13.1 (H) 3.6 - 10.7 10*3/uL RBC 4.27 (L) 4.40 - 5.90 10*6/uL Hemoglobin 13.0 13.0 - 18.0 g/dL Hematocrit 37.8 (L) 40.0 - 52.0 % MCV 88.5 80.0 - 98.0 fL MCH 30.4 26.0 - 34.0 pg MCHC 34.4 32.0 - 36.0 % RDW 15.0 (H) 11.5 - 14.5 % Platelets 434 140 - 440 10*3/uL MPV 8.8 7.4 - 12.4 fL Neutrophils Relative 82.6 (H) 40.0 - 80.0 % Lymphocytes Relative 10.5 (L) 20.0 - 40.0 % Monocytes Relative 5.4 2.0 - 10.0 % Eosinophils Relative 0.4 (L) 1.0 - 6.0 % Basophils Relative 0.5 0.0 - 2.0 % Immature Grans % 0.6 (H) <=0.0 % Neutrophils Absolute 10.9 (H) 1.8 - 7.0 10*3/uL Lymphocytes Absolute 1.4 1.0 - 4.3 10*3/uL Monocytes Absolute 0.7 0.0 - 0.8 10*3/uL Eosinophils Absolute 0.1 0.0 - 0.5 10*3/uL Basophils Absolute 0.1 0.0 - 0.2 10*3/uL Immature Grans Absolute 0.1 (H) <=0.0 10*3/uL Troponin I Result Value Ref Range TROPONIN I <0.012 0.000 - 0.034 ng/mL ECG 12 lead (Now) Result Value Ref Range Heart Rate 91 bpm QRSD Interval 111 ms QT Interval 405 ms QTC Interval 499 ms P [place] 29 degrees QRS [place] 19 degrees T Wave [place] 49 degrees MI Interval 132 ms Radiographs: XR chest 1 view Final Result 1. Lines/ tubes/ devices: None. 2. Lungs and Pleura: Bilateral parahilar interstitial infiltrates are identified. The vascular pedicle is not widened. No pneumothorax or pleural effusion. 3. Heart and mediastinum: Normal cardiomediastinal margin. 4. Bones: Normal osseous structures. Report Dictated on Electronically Signed By: Naila Dallas Electronically Signed Date/Time: 09/16/2022 1:30 AM EDT Procedures/EKG: EKG Interpreted in Xopik software by myself SCREENINGS EMERGENCY DEPARTMENT COURSE and DIFFERENTIAL DIAGNOSIS/MDM: Vitals: Vitals: 09/16/22 0053 09/16/22 0115 09/16/22 0230 BP: (!) 132/90 (!) 133/94 129/84 Pulse: 91 96 90 Resp: 17 21 17 Temp: 36.8 C (98.3 F) SpO2: 92% 92% (!) 88% Weight: 90.7 kg (200 lb) Height: 1.778 m (5' 10) The patient presented with a chief complaint of chest pain. Vital signs reviewed. Differential considered includes acute coronary syndrome, COPD exacerbation, pneumonia, pneumothorax among other diagnoses. Plan to order labs, chest x-ray, EKG, troponin. I will treat with DuoNeb treatment. Following treatment, patient noted to have a drop in oxygen saturation slightly. This can occur with bronchodilator therapy and he was given additional treatments. I did order Solu-Medrol. He is starting to have improvement in his reported shortness of breath. His laboratory work-up revealed a mild leukocytosis of 13. His metabolic panel was within normal limits. His troponin was not elevated. I personally reviewed his EKG which did not show any acute ischemic findings. Chest x-ray also personally reviewed and I do see bilateral interstitial infiltrates. Concerning that this could represent pneumonia. Patient's saturation was noted to be persistently less than 88% so he was placed on nasal cannula oxygen. Given his oxygen requirement, pneumonia and persistent wheezing I do feel he requires admission. Plan admit to [place]. Patient was treated with Rocephin and doxycycline. I also treated patient's hypokalemia of less than 3 due to frequent nebulizer use. Discussed with Dr. Fields who agreed to accept for admission. Diagnoses as of 09/16/22 033 COPD exacerbation (HCC) Community acquired pneumonia, unspecified laterality Hypoxia Hypokalemia Alcohol dependence with uncomplicated intoxication (HCC) External records reviewed: Reviewed discharge summary on 08/26/2022 where patient had been admitted for alcohol withdrawal treatment to the detox program but left AGAINST MEDICAL ADVICE as he would not be treated with methadone due to his prolonged QTc Diagnostics interpreted by me: Personally reviewed EKG and chest x-ray as above Discussions with other clinicians: Discussed with hospitalist regarding admission as above Chronic conditions impacting care: Alcohol abuse, COPD, CAD, chronic methadone use Social determinants of health affecting care: Alcohol abuse ED Medications managed: Medications cefTRIAXone (Rocephin) 1,000 mg in sodium chloride 0.9 % 50 mL IVPB Mini-Bag Plus (1,000 mg IntraVENous New Bag 09/16/22303) doxycycline (Vibramycin) 100 mg in sodium chloride 0.9 % 100 mL IVPB (100 mg IntraVENous Given 09/16/22303) Thiamine Mononitrate (Vitamin B1) tablet 100 mg (has no administration in time range) folic acid (Folvite) tablet 1 mg (has no administration in time range) LORazepam (Ativan) tablet 1 mg ( Oral See Alternative 09/16/22313) Or LORazepam (Ativan) injection 1 mg ( IntraVENous See Alternative 09/16/22313) Or LORazepam (Ativan) tablet 2 mg ( Oral See Alternative 09/16/22313) Or LORazepam (Ativan) injection 2 mg (2 mg IntraVENous Given 09/16/22313) Or LORazepam (Ativan) tablet 3 mg ( Oral See Alternative 09/16/22313) Or LORazepam (Ativan) injection 3 mg ( IntraVENous See Alternative 09/16/22313) Or LORazepam (Ativan) tablet 4 mg ( Oral See Alternative 09/16/22313) Or LORazepam (Ativan) injection 4 mg ( IntraVENous See Alternative 09/16/22313) ipratropium-albuterol (Duo-Neb) 0.5-2.5 mg/3 mL nebulizer solution 3 mL (3 mL Nebulization Given 09/16/22105) LORazepam (Ativan) injection 1 mg (1 mg IntraVENous Given 09/16/22105) ipratropium-albuterol (Duo-Neb) 0.5-2.5 mg/3 mL nebulizer solution 6 mL (6 mL Nebulization Given 09/16/22158) methylPREDNISolone sodium succinate (PF) (SOLU-Medrol) injection 125 mg (125 mg IntraVENous Given 09/16/22158) ketorolac (Toradol) injection 15 mg (15 mg IntraVENous Given 09/16/225) Patients symptoms are consistent with sepsis, severe sepsis or septic shock (if yes, use .sepsiscoremeasure) - yes SEP-1 CORE MEASURE DATA SIRS Criteria Sepsis Criteria Severe Sepsis Criteria Septic Shock Criteria Must meet 2: [] Temperature > 100.4 F (38 C) or < 96.8 F (36 C) [x] HR > 90 [] RR > 20 [x] WBC > 12 or < 4 or 10% bands Must be confirmed or suspected to move forward with diagnosis of sepsis. [] Infection Confirmed or Suspected. [] No infection present. Patient does not meet criteria for Sepsis. Must meet 1: [] Lactate > 2 or [] Signs of Organ Dysfunction: - SBP < 90 or MAP < 65 - Altered mental status - Creatinine > 2 or increased from baseline - Urine Output < 0.5 ml/kg/hr - Bilirubin > 2 - INR > 1.5 - Platelets < 100,000 - Acute Respiratory Failure as evidenced by new need for NIPPV or mechanical ventilation [x] No criteria met for Severe Sepsis. Must meet 1: [] Lactate = or > 4 or [] SBP < 90 or MAP < 65 for at least two readings in the first hour after fluid bolus administration [] No criteria met for Septic Shock. No data found. Recent Labs 09/16/22 0103 WBC 13.1* CREATININE 0.63* PLT 434 Sepsis Identified at time of XR result, 0130 . Fluid Resuscitation Rational: Patient does not meet criteria for Severe Sepsis or Septic Shock. 30mL/kg bolus not indicated. (Pt's hypoxia attributed to COPD exacerbation and not sepsis) Infection Source: Pulmonary - Community Acquired Reassessment Exam: Not applicable. Patient does not have Septic Shock. Final Impression 1. COPD exacerbation (HCC) 2. Community acquired pneumonia, unspecified laterality 3. Hypoxia DISPOSITION admit Comment: Please note this report has been produced using speech recognition software and may contain errors related to that system including errors in grammar, punctuation, and spelling, as well as words and phrases that may be inappropriate. If there are any questions or concerns please feel free to contact the dictating provider for clarification. Prince Alfaro DO [employer] Prince Alfaro DO 09/16/22 0334 Patient ambulatory to room 2 presenting with c/o of chest pain and shortness of breath that started 09/15 in the AM. Pain starts in the center of the chest and radiates around right breast, rated 10/10. Patient took naproxen an hour before arrival. Patient smokes marijuana daily, is a daily smoker 2 packs a day, and drinker. Last drink was around 6pm, patient drinks about 10 shooters a day. Patient takes methadone as well. Patient reports shortness of breath as well.; EKG completed and handed to physician. [facility] attendant and continuous pulse oximetry placed on patient. Vital signs are stable, call light in reach. Family is bedside. documented in this encounter [facility] [place] 09-16-2022 Emergency department Note Report called to Di on 2E. Mother contacted and updated on bed status and transportation status. Patient provided with pop and pudding, assisted with repositioning. Call light in reach. Seizure precautions remain in place. Patient denies further needs at this time. Subha Mcallister RN 09/16/22 0648 [facility] [place] 09-16-2022 Emergency department Note After RN discussion with patient, patient willing to transport to [facility] via ambulance. Subha Mcallister RN 09/16/22 0317 [facility] [place] 09-16-2022 Emergency department Note Patient visibly sweating, restless, and with tremors, patient is a daily drinker; last drink at 6pm. CIWA scale performed, score of 11. notified. Subha Mcallister RN 09/16/22 0311 [facility] [place] 09-16-2022 Emergency department Note Patient satting 87% on room air consistently, notified; patient placed on 3L nasal cannula and satting 91%. Patient reports that he feels like his breathing is better than when he came in prior to RN applying oxygen. Subha Mcallister RN 09/16/22 0246 T [facility] [place] 09-16-2022 Emergency department Triage note Patient ambulatory to room 2 presenting with c/o of chest pain and shortness of breath that started 09/15 in the AM. Pain starts in the center of the chest and radiates around right breast, rated 10/10. Patient took naproxen an hour before arrival. Patient smokes marijuana daily, is a daily smoker 2 packs a day, and drinker. Last drink was around 6pm, patient drinks about 10 shooters a day. Patient takes methadone as well. Patient reports shortness of breath as well.; EKG completed and handed to physician. [facility] attendant and continuous pulse oximetry placed on patient. Vital signs are stable, call light in reach. Family is bedside. [facility] [place] 09-16-2022 Physician Emergency department Note Emergency Department Encounter [facility] ED Patient: El Smith : 1980 Date of Evaluation: 09/16/2022 ED Provider: Prince Alfaro DO Chief Complaint Chief Complaint Patient presents with Chest Pain Shortness of Breath Chest pain started 09/15 in AM with accompanied shortness of breath; patient took naproxen one hour prior to arrival; pain starts in the center of the chest and radiates around right breast [place] El Smith is a 41 y.o. male who presents to the emergency department complaining of chest pain and shortness of breath. Patient reports he has had chest pain and shortness of breath throughout the day today. Pain is in the center of his chest and radiates to the right side. Has history of [facility] in the past and states this feels different. He also feels shortness of breath. Pain onset was after a coughing spell. He has had some GI symptoms including diarrhea as well. Additional history obtained from : n/a Barriers to obtaining history from patient: n/a ROS: Review of Systems completed as follows: (Bold = positive, Not bold = negative) GENERAL: fevers, chills, malaise ENT: runny nose, congestion, sore throat, ear pain NEURO: weakness, numbness of tingling, headache CARDIOVASCULAR: chest pain, syncope PULMONARY: shortness of breath, cough, wheezing GASTROINTESTINAL: nausea, vomiting, abdominal pain, diarrhea, constipation, MUSCULOSKELETAL: pain GENITAL/URINARY: dysuria, hematuria, increased urinary frequency, hesitancy, flank pain SKIN: rash, lesions, wound Past History 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 Drug abuse ([facility]) ([facility]) Gastroenteritis 11/23/2018 Last Assessment & Plan: Predominantly vomiting; ?food poisoning vs viral gastroenteritis IV hydration PRN antiemetics Hyperlipidemia Hypertension Iritis of left eye 09/20/2018 [facility] infarction[facility] ([facility]) ([facility]) Opioid dependence, uncomplicated ([facility]) 10/27/2021 Presence of stent in right coronary artery 10/02/2021 Sciatica Spinal stenosis, lumbar Tobacco abuse Past Surgical History: Procedure Laterality Date ARM SURGERY (HISTORICAL) metal rods in adam upper extremities BACK SURGERY COLONOSCOPY CORONARY ANGIOPLASTY WITH STENT PLACEMENT 09/23/2021 DORIS to proximal RCA FRACTURE SURGERY Social History Socioeconomic History Marital status: Single Tobacco Use Smoking status: Every Day Packs/day: 2.00 Types: Cigarettes Smokeless tobacco: Current Vaping Use Vaping Use: Never used Substance and Sexual Activity Alcohol use: Yes Comment: 15 shots of whiskey Drug use: Yes Types: Marijuana Comment: uses methadone, also buys pain meds on the streets Social Determinants of Health Intimate Partner Violence: Not At Risk Fear of Current or Ex-Partner: No Emotionally Abused: No Physically Abused: No Sexually Abused: No I have reviewed the history above as provided by nursing notes. Medications/Allergies Previous Medications ASPIRIN 81 MG EC TABLET Take 81 mg by mouth in the morning. CARVEDILOL (COREG) 12.5 MG TABLET LIDOCAINE (LIDODERM) 5 % PATCH Apply 1 patch topically daily. Remove & discard patch within 12 hours or as directed by MD. LISINOPRIL PO Take by mouth. METHADONE HCL PO Take by mouth. METHOCARBAMOL (ROBAXIN) 500 MG TABLET Take 2 tablets (1,000 mg) by mouth in the morning and 2 tablets (1,000 mg) at noon and 2 tablets (1,000 mg) before bedtime. Do all this for 10 days. TICAGRELOR (BRILINTA PO) Take by mouth. Allergies Allergen Reactions Nickel Rash I have reviewed the history above as provided by nursing notes. Physical Exam ED Triage Vitals [09/16/22 0053] Temp Heart Rate Resp BP 36.8 C (98.3 F) 91 17 (!) 132/90 SpO2 Temp src Heart Rate Source Patient Position 92 % -- Monitor -- BP Location FiO2 (%) -- -- GENERAL: The patient appears nourished and normally developed. Vital signs as documented. EYES: PERRL. No scleral icterus or orbital trauma noted. HEENT: Mucous membranes moist. Nares patent without copious rhinorrhea. LUNGS: Diffuse expiratory wheezing. CARDIAC: Rhythm is regular. No murmur appreciated ABDOMEN: Nontender, soft, with no obvious masses, and no peritoneal signs. EXTREMITIES: Non edematous, with no obvious deformities. SKIN: Good color, with no significant rashes. No pallor. NEURO: No obvious neurological deficits, normal sensation and strength bilaterally. Diagnostics Labs: Results for orders placed or performed during the hospital encounter of 09/16/22 Basic metabolic panel Result Value Ref Range SODIUM 138 135 - 145 mmol/L POTASSIUM 2.9 (L) 3.5 - 5.1 mmol/L CHLORIDE 99 98 - 107 mmol/L CARBON DIOXIDE 33 (H) 22 - 30 mmol/L UREA NITROGEN 9 9 - 20 mg/dL CREATININE 0.63 (L) 0.66 - 1.25 mg/dL GLUCOSE 110 (H) 70 - 100 mg/dL CALCIUM 8.3 (L) 8.4 - 10.4 mg/dL ANION GAP 6 3 - 13 mmol/L eGFR >90.0 >60.0 mL/min/1.73m*2 CBC auto differential Result Value Ref Range Auto WBC 13.1 (H) 3.6 - 10.7 10*3/uL RBC 4.27 (L) 4.40 - 5.90 10*6/uL Hemoglobin 13.0 13.0 - 18.0 g/dL Hematocrit 37.8 (L) 40.0 - 52.0 % MCV 88.5 80.0 - 98.0 fL MCH 30.4 26.0 - 34.0 pg MCHC 34.4 32.0 - 36.0 % RDW 15.0 (H) 11.5 - 14.5 % Platelets 434 140 - 440 10*3/uL MPV 8.8 7.4 - 12.4 fL Neutrophils Relative 82.6 (H) 40.0 - 80.0 % Lymphocytes Relative 10.5 (L) 20.0 - 40.0 % Monocytes Relative 5.4 2.0 - 10.0 % Eosinophils Relative 0.4 (L) 1.0 - 6.0 % Basophils Relative 0.5 0.0 - 2.0 % Immature Grans % 0.6 (H) <=0.0 % Neutrophils Absolute 10.9 (H) 1.8 - 7.0 10*3/uL Lymphocytes Absolute 1.4 1.0 - 4.3 10*3/uL Monocytes Absolute 0.7 0.0 - 0.8 10*3/uL Eosinophils Absolute 0.1 0.0 - 0.5 10*3/uL Basophils Absolute 0.1 0.0 - 0.2 10*3/uL Immature Grans Absolute 0.1 (H) <=0.0 10*3/uL Troponin I Result Value Ref Range TROPONIN I <0.012 0.000 - 0.034 ng/mL ECG 12 lead (Now) Result Value Ref Range Heart Rate 91 bpm QRSD Interval 111 ms QT Interval 405 ms QTC Interval 499 ms P [place] 29 degrees QRS [place] 19 degrees T Wave [place] 49 degrees MI Interval 132 ms Radiographs: XR chest 1 view Final Result 1. Lines/ tubes/ devices: None. 2. Lungs and Pleura: Bilateral parahilar interstitial infiltrates are identified. The vascular pedicle is not widened. No pneumothorax or pleural effusion. 3. Heart and mediastinum: Normal cardiomediastinal margin. 4. Bones: Normal osseous structures. Report Dictated on Electronically Signed By: Naila Dallas Electronically Signed Date/Time: 09/16/2022 1:30 AM EDT Procedures/EKG: EKG Interpreted in Xopik software by myself SCREENINGS EMERGENCY DEPARTMENT COURSE and DIFFERENTIAL DIAGNOSIS/MDM: Vitals: Vitals: 09/16/22 0053 09/16/22 0115 09/16/22 0230 BP: (!) 132/90 (!) 133/94 129/84 Pulse: 91 96 90 Resp: 17 21 17 Temp: 36.8 C (98.3 F) SpO2: 92% 92% (!) 88% Weight: 90.7 kg (200 lb) Height: 1.778 m (5' 10) The patient presented with a chief complaint of chest pain. Vital signs reviewed. Differential considered includes acute coronary syndrome, COPD exacerbation, pneumonia, pneumothorax among other diagnoses. Plan to order labs, chest x-ray, EKG, troponin. I will treat with DuoNeb treatment. Following treatment, patient noted to have a drop in oxygen saturation slightly. This can occur with bronchodilator therapy and he was given additional treatments. I did order Solu-Medrol. He is starting to have improvement in his reported shortness of breath. His laboratory work-up revealed a mild leukocytosis of 13. His metabolic panel was within normal limits. His troponin was not elevated. I personally reviewed his EKG which did not show any acute ischemic findings. Chest x-ray also personally reviewed and I do see bilateral interstitial infiltrates. Concerning that this could represent pneumonia. Patient's saturation was noted to be persistently less than 88% so he was placed on nasal cannula oxygen. Given his oxygen requirement, pneumonia and persistent wheezing I do feel he requires admission. Plan admit to [place]. Patient was treated with Rocephin and doxycycline. I also treated patient's hypokalemia of less than 3 due to frequent nebulizer use. Discussed with Dr. Fields who agreed to accept for admission. Diagnoses as of 09/16/22 033 COPD exacerbation (HCC) Community acquired pneumonia, unspecified laterality Hypoxia Hypokalemia Alcohol dependence with uncomplicated intoxication (HCC) External records reviewed: Reviewed discharge summary on 08/26/2022 where patient had been admitted for alcohol withdrawal treatment to the detox program but left AGAINST MEDICAL ADVICE as he would not be treated with methadone due to his prolonged QTc Diagnostics interpreted by me: Personally reviewed EKG and chest x-ray as above Discussions with other clinicians: Discussed with hospitalist regarding admission as above Chronic conditions impacting care: Alcohol abuse, COPD, CAD, chronic methadone use Social determinants of health affecting care: Alcohol abuse ED Medications managed: Medications cefTRIAXone (Rocephin) 1,000 mg in sodium chloride 0.9 % 50 mL IVPB Mini-Bag Plus (1,000 mg IntraVENous New Bag 09/16/22303) doxycycline (Vibramycin) 100 mg in sodium chloride 0.9 % 100 mL IVPB (100 mg IntraVENous Given 09/16/22303) Thiamine Mononitrate (Vitamin B1) tablet 100 mg (has no administration in time range) folic acid (Folvite) tablet 1 mg (has no administration in time range) LORazepam (Ativan) tablet 1 mg ( Oral See Alternative 09/16/22313) Or LORazepam (Ativan) injection 1 mg ( IntraVENous See Alternative 09/16/22313) Or LORazepam (Ativan) tablet 2 mg ( Oral See Alternative 09/16/22313) Or LORazepam (Ativan) injection 2 mg (2 mg IntraVENous Given 09/16/22313) Or LORazepam (Ativan) tablet 3 mg ( Oral See Alternative 09/16/22313) Or LORazepam (Ativan) injection 3 mg ( IntraVENous See Alternative 09/16/22313) Or LORazepam (Ativan) tablet 4 mg ( Oral See Alternative 09/16/22313) Or LORazepam (Ativan) injection 4 mg ( IntraVENous See Alternative 09/16/22313) ipratropium-albuterol (Duo-Neb) 0.5-2.5 mg/3 mL nebulizer solution 3 mL (3 mL Nebulization Given 09/16/22105) LORazepam (Ativan) injection 1 mg (1 mg IntraVENous Given 09/16/22105) ipratropium-albuterol (Duo-Neb) 0.5-2.5 mg/3 mL nebulizer solution 6 mL (6 mL Nebulization Given 09/16/22158) methylPREDNISolone sodium succinate (PF) (SOLU-Medrol) injection 125 mg (125 mg IntraVENous Given 09/16/22158) ketorolac (Toradol) injection 15 mg (15 mg IntraVENous Given 09/16/225) Patients symptoms are consistent with sepsis, severe sepsis or septic shock (if yes, use .sepsiscoremeasure) - yes SEP-1 CORE MEASURE DATA SIRS Criteria Sepsis Criteria Severe Sepsis Criteria Septic Shock Criteria Must meet 2: [] Temperature > 100.4 F (38 C) or < 96.8 F (36 C) [x] HR > 90 [] RR > 20 [x] WBC > 12 or < 4 or 10% bands Must be confirmed or suspected to move forward with diagnosis of sepsis. [] Infection Confirmed or Suspected. [] No infection present. Patient does not meet criteria for Sepsis. Must meet 1: [] Lactate > 2 or [] Signs of Organ Dysfunction: - SBP < 90 or MAP < 65 - Altered mental status - Creatinine > 2 or increased from baseline - Urine Output < 0.5 ml/kg/hr - Bilirubin > 2 - INR > 1.5 - Platelets < 100,000 - Acute Respiratory Failure as evidenced by new need for NIPPV or mechanical ventilation [x] No criteria met for Severe Sepsis. Must meet 1: [] Lactate = or > 4 or [] SBP < 90 or MAP < 65 for at least two readings in the first hour after fluid bolus administration [] No criteria met for Septic Shock. No data found. Recent Labs 09/16/22 0103 WBC 13.1* CREATININE 0.63* PLT 434 Sepsis Identified at time of XR result, 0130 . Fluid Resuscitation Rational: Patient does not meet criteria for Severe Sepsis or Septic Shock. 30mL/kg bolus not indicated. (Pt's hypoxia attributed to COPD exacerbation and not sepsis) Infection Source: Pulmonary - Community Acquired Reassessment Exam: Not applicable. Patient does not have Septic Shock. Final Impression 1. COPD exacerbation (HCC) 2. Community acquired pneumonia, unspecified laterality 3. Hypoxia DISPOSITION admit Comment: Please note this report has been produced using speech recognition software and may contain errors related to that system including errors in grammar, punctuation, and spelling, as well as words and phrases that may be inappropriate. If there are any questions or concerns please feel free to contact the dictating provider for clarification. Prince Alfaro DO [employer] Prince Alfaro DO 09/16/22 0334 T [facility] [place] 08-26-2022 History of Present illness Narrative Pt arrived to from [facility] via [facility] on cart at 2100. Skin check by this RN. Consents signed and oriented to room. Pt reports drinking 3-4 shots every 4 hours. Roughly 10-15 shots daily. Last drink 209908/27/22. Reports using percocet's when able to access them from streets for chronic back and leg pain. Last use 2 days ago. Reports wanted to get sober before surgery on Tuesday. Reports started drinking at 16, problematic by 26 when joining the [employer]. Reports heavily drinking after back pain occurred in 2015. Currently [facility] [employer] [facility] [place] [facility] Denies hx of seizures, reports hx of falls. Recent. Steady gait using cane from home. Pt BP elevated. Restless. Pt reports pain 01/25. Dr. Lyle notified via secure chat. Dr. Zewail holding pt Methadone due to ECG results. Physician offered alternative pain relief 50 mg Tramadol for the night. Pt irritable. Pt reports wanting to leave AMA. AMA consent signed. Pt denies SI/HI/AVH. Pt educated on high risk of leaving AMA. Pt agreed. Belongings returned to pt. Security escorted pt off unit. documented in this encounter [facility] [place] 08-26-2022 Emergency department Note To [facility] room 412. Estefani Ponce RN 08/26/222023 [facility] 08-26-2022 Emergency department Note To [facility] room 412. Estefani Ponce RN 08/26/222023 Report to [facility] staff. Estefani Ponce RN 08/26/222005 Patient given a dinner tray and a mug of water. Patient sitting up in bed, eating. Sera Larose RN 08/26/22 1551 Patient resting in bed. Warm blankets offered. Call light within reach. Deborah Thomson RN 08/26/22 1450 [facility] at bedside and completed the ASAM assessment. Pt states that he presents to the ER looking for detox for his alcohol use. He reports that he will have spine surgery on Tuesday and that he needs to stop drinking, he is currently drinking 10-15 shots a day, last use at 2100 on 5.10.23. He states that he also has been using opiates from the street to deal with the pain, 4-6 tabs a day of Percocet or Vicodin. He complies with his 125mg of Methadone a day, last use today. Pt is active at the [facility] in [place]. He goes in for daily dosing. Pt states that he plans to maintain sobriety from the alcohol following his surgery on Tuesday. Pt is active at [facility] and can receive follow up treatment there. CIWA and COWS assessment completed. Silvia Steward RN 08/26/22 1138 Silvia Steward RN 08/26/22 1142 EMERGENCY DEPARTMENT ENCOUNTER Pt Name: El Smith Birthdate 1980 Date of evaluation: 08/26/2022 ED Provider: BASIL MARIANO MD CHIEF COMPLAINT Chief Complaint Patient presents with Alcohol Intoxication HISTORY OF PRESENT ILLNESS (Location/Symptom, Timing/Onset, Context/Setting, Quality, Duration, Modifying Factors, Severity) Note limiting factors. HPI El Smith is a 41 y.o. male who presents to the emergency department for evaluation of detox. The patient states he is an alcoholic and he needs detox. There are some complicating factors, he is scheduled next Tuesday at the [facility] for some sort of lumbar back fusion surgery and he wanted to try to stop drinking prior. He states he drinks 15 shots of whiskey daily he has been doing that for greater than 2 months, he had been sober for several months prior to that as he was at [place] in September of last year. He also has a prior addiction history of OxyContin and Percocet pills he has been on a methadone program taking methadone 125 mg daily at [facility] for about the last 7 months. He denies any headache chest pain shortness of breath abdominal pain or GI bleeding, he said he does feel somewhat anxious. He has had withdrawal symptoms in the past but no actual alcohol withdrawal seizures or florid DTs. Nursing Notes were reviewed. 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 Drug abuse ([facility]) ([facility]) Gastroenteritis 11/23/2018 Last Assessment & Plan: Predominantly vomiting; ?food poisoning vs viral gastroenteritis IV hydration PRN antiemetics Hyperlipidemia Hypertension Iritis of left eye 09/20/2018 [facility] (myocardial infarction) ([facility]) ([facility]) Opioid dependence, uncomplicated ([facility]) 10/27/2021 Presence of stent in right coronary artery 10/02/2021 Sciatica Spinal stenosis, lumbar Tobacco abuse SURGICAL HISTORY Past Surgical History: Procedure Laterality Date ARM SURGERY (HISTORICAL) metal rods in adam upper extremities BACK SURGERY COLONOSCOPY CORONARY ANGIOPLASTY WITH STENT PLACEMENT 09/23/2021 DORIS to proximal RCA FRACTURE SURGERY CURRENT MEDICATIONS Previous Medications ASPIRIN 81 MG EC TABLET Take 81 mg by mouth in the morning. CARVEDILOL (COREG) 12.5 MG TABLET LIDOCAINE (LIDODERM) 5 % PATCH Apply 1 patch topically daily. Remove & discard patch within 12 hours or as directed by MD. LISINOPRIL PO Take by mouth. METHADONE HCL PO Take by mouth. METHOCARBAMOL (ROBAXIN) 500 MG TABLET Take 2 tablets (1,000 mg) by mouth in the morning and 2 tablets (1,000 mg) at noon and 2 tablets (1,000 mg) before bedtime. Do all this for 10 days. TICAGRELOR (BRILINTA PO) Take by mouth. ALLERGIES [place] FAMILY HISTORY Family History Problem Relation Name Age of Onset Atrial fibrillation Sister Hyperlipidemia Mother Obesity Mother Asthma Mother Depression Mother Obesity Sister Depression Sister Arthritis Mother High Blood Pressure Maternal Grandmother Diabetes Mother Asthma Maternal Grandmother Substance Abuse Sister Diabetes Father Stroke Paternal Grandfather Arthritis Sister High Blood Pressure Mother Vision loss Maternal Grandmother Diabetes Maternal Grandmother Stroke Maternal Grandmother Arthritis Maternal Grandfather Arthritis Maternal Grandmother Cancer Maternal Grandfather Depression Maternal Grandmother Cancer Brother Diabetes Paternal Grandfather Stroke Paternal Grandmother Diabetes Maternal Grandfather Obesity Maternal Grandmother Depression Maternal Grandfather Arthritis Paternal Grandmother Vision loss Maternal Grandfather Depression Paternal Grandmother Arthritis Paternal Grandfather SOCIAL HISTORY Social History Socioeconomic History Marital status: Single Tobacco Use Smoking status: Every Day Packs/day: 2.00 Types: Cigarettes Smokeless tobacco: Current Vaping Use Vaping Use: Never used Substance and Sexual Activity Alcohol use: Yes Comment: 15 shots of whiskey Drug use: Yes Types: Marijuana Comment: uses methadone, also buys pain meds on the streets SCREENINGS Clinical Opiate Withdrawal Scale Resting Pulse Rate: Measured After Patient is Sitting or Lying for One Minute: Pulse rate 80 or below GI Upset: Over Last Half Hour: No GI symptoms Sweating: Over Past Half Hour Not Accounted for by Room Temperature or Patient Activity: Subjective report of chills or flushing Tremor: Observation of Outstretched Hands: Gross tremor or muscle twitching Restlessness: Observation During Assessment: Frequent shifting or extraneous movements of legs/arms Yawning: Observation During Assessment: No yawning Pupil Size: Pupils pinned or normal size for room light Anxiety and Irritability: None Bone or Joint Aches: If Patient was Having Pain Previously, Only the Additional Component Attributed to Opiate Withdrawal is Scored: Mild diffuse discomfort Gooseflesh Skin: Skin is smooth Runny Nose or Tearing: Not Accounted for by Cold Symptoms or Allergies: Not present Clinical Opiate Withdrawal Scale Total Score: 9 PHYSICAL EXAM ED Triage Vitals Temp Pulse Resp BP -- -- -- -- SpO2 Temp src Heart Rate Source Patient Position -- -- -- -- BP Location FiO2 (%) -- -- Physical Exam CONSTITUTIONAL: He is anxious jittery and shaky but not in severe acute distress EYES: Sharon, EOMI, funduscopic exam normal NECK: Supple no rigidity or meningismus, no cervical adenopathy LUNGS: Breath sounds equal and clear to auscultation. Good air exchange, no wheezes rales or retractions, pulse oximetry is charted. HEART: Regular rate and rhythm without murmur thrill or rub, strong tones, auscultation is normal. ABDOMEN: Soft and nontender without guarding rebound rigidity or mass. Bowel sounds are present and normal in all quadrants. There is no palpable masses or aneurysms identified. No hepatosplenomegaly, normal abdominal exam. BACK: No thoracic or lumbar or flank pain on palpation and percussion. EXTREMITIES: Pulses are present, cap refills less than 2 seconds, no edema, no palpable tenderness negative cords, no signs of deep vein thrombosis. No erythema or warmth, or redness, neurovascularly intact and normal. NEURO: Cranial nerves grossly intact, motor and sensory exams normal. Normal ambulation. PSYCH: Awake alert oriented, normal mood and affect. DIAGNOSTIC RESULTS Procedures/EKG per my interpretation: EKG interpretation performed by myself can be found in [employer] &/or below: EKG interpreted by me shows sinus rhythm rate of 69 with no STEMI or ST segment depression or any significant ventricular arrhythmia. RADIOLOGY per my interpretation: Interpretation per the Radiologist below, if available at the time of this note: No orders to display ED BEDSIDE ULTRASOUND: Performed by ED Physician - none LABS: Labs Reviewed CBC WITH AUTO DIFFERENTIAL - Abnormal Result Value Auto WBC 12.1 (*) RBC 5.04 Hemoglobin 15.0 Hematocrit 45.6 MCV 90.5 MCH 29.8 MCHC 32.9 RDW 16.7 (*) Platelets 311 MPV 8.7 Neutrophils Relative 72.5 Lymphocytes Relative 17.6 (*) Monocytes Relative 7.0 Eosinophils Relative 1.5 Basophils Relative 1.0 Immature Grans % 0.4 (*) Neutrophils Absolute 8.8 (*) Lymphocytes Absolute 2.1 Monocytes Absolute 0.9 (*) Eosinophils Absolute 0.2 Basophils Absolute 0.1 Immature Grans Absolute 0.1 (*) COMPREHENSIVE METABOLIC PANEL - Abnormal SODIUM 137 POTASSIUM 3.4 (*) CHLORIDE 97 (*) CARBON DIOXIDE 34 (*) ANION GAP 6 UREA NITROGEN 20 CREATININE 0.69 GLUCOSE 117 (*) CALCIUM 8.7 AST (SGOT) 58 (*) ALT 32 ALKALINE PHOSPHATASE 164 (*) ALBUMIN 4.2 BILIRUBIN, TOTAL 0.8 TOTAL PROTEIN 7.7 eGFR >90.0 COMPLETE URINALYSIS - Abnormal Color, Urine Light [place] (*) Clarity, Urine Clear pH, Urine 6.5 Leukocytes, Urine 25 (*) Nitrite, Urine Negative Protein, Urine 70 (*) Glucose, Urine Normal Bilirubin, Urine Negative Ketones, Urine 20 (*) Urobilinogen, Urine 4 (*) Blood, Urine Negative Volume, Urine 12 mL RBC, Urine 0-2 WBC, Urine 0-2 Squamous Epithelial, Urine 3-5 Bacteria, Urine Few (*) Mucus, Urine Few SPECIFIC GRAVITY OF URINE (NUMERIC) 1.028 SARS-COV-2 ANTIGEN - Normal SARS-CoV-2 Antigen Negative ETHANOL - Normal ETHANOL IN SER/PLAS <0.010 Narrative: NOTE: This result is for medical treatment only. Analysis performed using non-forensic procedures. TROPONIN I - Normal TROPONIN I <0.012 Narrative: Patients with high levels of Biotin oral intake (ie >5 mg/day) may have falsely decreased Troponin levels. DRUGS OF ABUSE AMPHETAMINE SCREEN Negative BARBITURATES SCREEN Negative BENZODIAZEPINE SCREEN Negative COCAINE METAB. SCREEN Negative METHADONE SCREEN Positive OPIATES SCREEN Positive OXYCODONE SCREEN Positive PHENCYCLIDINE SCREEN Negative Narrative: The expected value for all of the drugs listed above is Negative. The following drugs or drug groups have been screened for by Immunoassay at the following thresholds: Amphetamine class (1000 ng/mL) Barbiturates (200 ng/mL) Benzodiazepines (200 ng/mL) Cocaine (300 ng/mL) Methadone (300 ng/mL) Opiates (300 ng/mL) Oxycodone (100 ng/mL) PCP (25 ng/mL) NOTE: These results are for medical treatment only. Analysis performed using non-forensic procedures. POSITIVE results are NOT confirmed by a more specific alternative method unless requested. If confirmation is needed, request confirmation under separate order. FENTANYL, URINE FENTANYL SCREEN, URINE Negative Narrative: Fentanyl has been screened for by Immunoassay at a 1 ng/ml threshold. POSITIVE results are not confirmed by a more specific alternative method unless requested. If confirmation is needed, request confirmation under separate order. NOTE: These results are for medical treatment only. Analysis performed using non-forensic procedures. COMPLETE URINALYSIS WITH REFLEX TO CULTURE Narrative: The following orders were created for panel order Urinalysis Complete with reflex to Culture. Procedure Abnormality Status --------- ------ Complete Urinalysis[[id number]] Abnormal Final result Please view results for these tests on the individual orders. CANNABINOID SCREEN, URINE THC, URINE Positive All other labs were within normal range or not returned as of this dictation. MDM/EMERGENCY DEPARTMENT COURSE: Vitals: Vitals: 08/26/22 1447 08/26/22 1519 08/26/22 1534 08/26/22 1549 BP: (!) 141/96 (!) 132/94 (!) 143/101 BP Location: Right arm Patient Position: Sitting Pulse: 78 90 88 96 Resp: 13 18 Temp: TempSrc: SpO2: 96% 95% 97% Weight: Height: Medications PHENobarbital (Luminal) tablet 97.2 mg (97.2 mg Oral Given 08/26/22 1038) aspirin EC EC tablet 81 mg (has no administration in time range) PHENobarbital (Luminal) tablet 97.2 mg (has no administration in time range) folic acid (Folvite) tablet 1 mg (has no administration in time range) Thiamine Mononitrate (Vitamin B1) tablet 100 mg (has no administration in time range) ondansetron (Zofran) tablet 4 mg (has no administration in time range) senna-docusate sodium (Senokot-S) 8.6-50 MG tablet 2 tablet (has no administration in time range) PHENobarbital (Luminal) injection 65 mg (has no administration in time range) methocarbamol (Robaxin) tablet 1,000 mg (has no administration in time range) baclofen (Lioresal) tablet 10 mg (has no administration in time range) cloNIDine (Catapres) tablet 0.1 mg (has no administration in time range) dicyclomine (Bentyl) tablet 10 mg (has no administration in time range) gabapentin (Neurontin) capsule 300 mg (has no administration in time range) traZODone (Desyrel) tablet 100 mg (has no administration in time range) hydrOXYzine pamoate (Vistaril) capsule 50 mg (has no administration in time range) ibuprofen tablet 600 mg (has no administration in time range) sodium chloride 0.9 % bolus 1,000 mL (0 mL IntraVENous Stopped 08/26/22 1040) LORazepam (Ativan) injection 2 mg (2 mg IntraVENous Given 08/26/22 0942) HYDROmorphone (Dilaudid) injection 1 mg (1 mg IntraVENous Given 08/26/22 1255) LORazepam (Ativan) injection 1 mg (1 mg IntraVENous Given 08/26/22 1407) MEDICAL DECISION MAKING Clinically here he was somewhat tremulous shaky and anxious but not in florid DTs, he states his last drink was last night about 10 or 12 hours ago, he has a prior history of both alcohol abuse and oral opioid abuse he has been on maintenance methadone 125 mg daily program for the last 7 months and states he only occasionally uses a Percocet because of his chronic back pain, that is a complicating factor given the fact he is scheduled for surgery on Tuesday. He does drink heavily alcohol 80 proof whiskey daily upwards of 15 shots daily with the last drink about 12 hours or so ago. He has been drinking heavily like that for greater than several months. In addition, pounding all this is that he does have a history of cardiac issues and apparently had an [facility] stenting placed over a year ago no current chest pain shortness of breath or diaphoresis. I will order IV, fluid bolus normal saline 1 L wide open, and Ativan 2 mg IV for his anxiety and his early withdrawals. CBC chemistries all toxicology studies were ordered by Maggieien order an EKG and troponin because of his prior history. Reexam: Patient still tremulous anxious, CIWA 11 score we opted to give him oral phenobarb 97.2 mg in addition to the Ativan we gave her earlier. Laboratory studies began to return, his chemistries show sodium 137 potassium 3.4 creatinine is normal glucose is 117 his LFTs show SGOT of 58 with a normal ALT of 32, his troponin was negative, his white count is 12.1, his COVID is negative his alcohol level is less than 0.01 his tox screen was positive for opioids/oxycodone but he had told me that he was taking 1/day because of his back that he was getting on the street his methadone screen was positive which we expected and he has a medical marijuana card and uses marijuana and his THC screen was positive. External note #1 reviewed by myself dated 09/29/2021 discharge summary from addiction medicine Dr. Gonzales noted the patient had a history of alcohol dependency depression and anxiety and he was treated for that. Consultation with Dr. Lyle addiction medicine today I spoke with him and because the patient's prior history of cardiac disease as well as he is currently on a methadone program and his alcohol consumption he believes he should be admitted for inpatient detox as well. He states that currently there is not an available bed however he will be making rounds later this afternoon and see if he can discharge somebody to make a bed available for him at that point. Progress note: Patient was still a little bit tremulous so we gave him an additional dose of Ativan now after he has had phenobarb orally and sequentially dosed with Ativan 3 mg IV total his blood pressure now is 141/96 and his heart rate is 78 and he is less anxious and less jittery. Progress note: At approximately 4:[address] Lyle called and informed that he had an open bed and was willing to accept the patient in transfer at this point time. REVAL: CONSULTS: None Consult made with addiction medicine note in my MDM above. FINAL IMPRESSION 1. Withdrawn from alcohol detoxification program DISPOSITION/PLAN Admit detoxing Accepting physician Dr. Lyle PATIENT REFERRED TO: No follow-up provider specified. DISCHARGE MEDICATIONS: New Prescriptions No medications on file (Comment: Please note this report has been produced using speech recognition software and may contain errors related to that system including errors in grammar, punctuation, and spelling, as well as words and phrases that may be inappropriate. If there are any questions or concerns please feel free to contact the dictating provider for clarification.) BASIL MARIANO MD (electronically signed) Emergency Medicine Provider Basil Mariano MD 08/26/22 1638 Patient to room 3 with c/o alcohol withdrawal due to having back [facility] on Tuesday at the [facility]. Patients last drink was at 21\00 last night. Patients last Percocet was two days ago. Patient is also on methadone. V/S obtained, call light within reach. [facility] attendant applied. documented in this encounter [facility] 08-26-2022 Emergency department Note Report to [facility]. Estefani Ponce RN 08/26/222005 [facility] 08-26-2022 Emergency department Note Patient given a dinner tray and a mug of water. Patient sitting up in bed, eating. Sera Larose RN 08/26/22 1551 [facility] 08-26-2022 Emergency department Note Patient resting in bed. Warm blankets offered. Call light within reach. Deborah Thomson RN 08/26/22 1450 [facility] 08-26-2022 Emergency department Note [facility] at bedside and completed the ASAM assessment. Pt states that he presents to the ER looking for detox for his alcohol use. He reports that he will have spine surgery on Tuesday and that he needs to stop drinking, he is currently drinking 10-15 shots a day, last use at 2100 on 08.25.22. He states that he also has been using opiates from the street to deal with the pain, 4-6 tabs a day of Percocet or Vicodin. He complies with his 125mg of Methadone a day, last use today. Pt is active at the [facility] in [place]. He goes in for daily dosing. Pt states that he plans to maintain sobriety from the alcohol following his surgery on Tuesday. Pt is active at [facility] and can receive follow up treatment there. CIWA and COWS assessment completed. Silvia Steward RN 08/26/22 1138 Silvia Steward RN 08/26/22 1142 [facility] 08-26-2022 Note NOTE: This result is for medical treatment only. Analysis performed using non-forensic procedures. [facility] 08-26-2022 Emergency department Triage note Patient to room 3 with c/o alcohol withdrawal due to having back surgery on Tuesday at the [facility]. Patients last drink was at 21\00 last night. Patients last Percocet was two days ago. Patient is also on methadone. V/S obtained, call light within reach. children's institution attendant applied. [facility] 08-26-2022 Physician Emergency department Note EMERGENCY DEPARTMENT ENCOUNTER Pt Name: El Smith Birthdate 1980 Date of evaluation: 08/26/2022 ED Provider: BASIL MARIANO MD CHIEF COMPLAINT Chief Complaint Patient presents with Alcohol Intoxication HISTORY OF PRESENT ILLNESS (Location/Symptom, Timing/Onset, Context/Setting, Quality, Duration, Modifying Factors, Severity) Note limiting factors. DIONI Smith is a 41 y.o. male who presents to the emergency department for evaluation of detox. The patient states he is an alcoholic and he needs detox. There are some complicating factors, he is scheduled next Tuesday at the [facility] for some sort of lumbar back fusion surgery and he wanted to try to stop drinking prior. He states he drinks 15 shots of whiskey daily he has been doing that for greater than 2 months, he had been sober for several months prior to that as he was at [place] in September of last year. He also has a prior addiction history of OxyContin and Percocet pills he has been on a methadone program taking methadone 125 mg daily at [facility] for about the last 7 months. He denies any headache chest pain shortness of breath abdominal pain or GI bleeding, he said he does feel somewhat anxious. He has had withdrawal symptoms in the past but no actual alcohol withdrawal seizures or florid DTs. Nursing Notes were reviewed. 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 Drug abuse ([facility]) ([facility]) Gastroenteritis 11/23/2018 Last Assessment & Plan: Predominantly vomiting; ?food poisoning vs viral gastroenteritis IV hydration PRN antiemetics Hyperlipidemia Hypertension Iritis of left eye 09/20/2018 [facility] (myocardial infarction) ([facility]) ([facility]) Opioid dependence, uncomplicated ([facility]) 10/27/2021 Presence of stent in right coronary artery 10/02/2021 Sciatica Spinal stenosis, lumbar Tobacco abuse SURGICAL HISTORY Past Surgical History: Procedure Laterality Date ARM SURGERY (HISTORICAL) metal rods in adam upper extremities BACK SURGERY COLONOSCOPY CORONARY ANGIOPLASTY WITH STENT PLACEMENT 09/23/2021 DORIS to proximal RCA FRACTURE SURGERY CURRENT MEDICATIONS Previous Medications ASPIRIN 81 MG EC TABLET Take 81 mg by mouth in the morning. CARVEDILOL (COREG) 12.5 MG TABLET LIDOCAINE (LIDODERM) 5 % PATCH Apply 1 patch topically daily. Remove & discard patch within 12 hours or as directed by MD. LISINOPRIL PO Take by mouth. METHADONE HCL PO Take by mouth. METHOCARBAMOL (ROBAXIN) 500 MG TABLET Take 2 tablets (1,000 mg) by mouth in the morning and 2 tablets (1,000 mg) at noon and 2 tablets (1,000 mg) before bedtime. Do all this for 10 days. TICAGRELOR (BRILINTA PO) Take by mouth. ALLERGIES [place]el FAMILY HISTORY Family History Problem Relation Name Age of Onset Atrial fibrillation Sister Hyperlipidemia Mother Obesity Mother Asthma Mother Depression Mother Obesity Sister Depression Sister Arthritis Mother High Blood Pressure Maternal Grandmother Diabetes Mother Asthma Maternal Grandmother Substance Abuse Sister Diabetes Father Stroke Paternal Grandfather Arthritis Sister High Blood Pressure Mother Vision loss Maternal Grandmother Diabetes Maternal Grandmother Stroke Maternal Grandmother Arthritis Maternal Grandfather Arthritis Maternal Grandmother Cancer Maternal Grandfather Depression Maternal Grandmother Cancer Brother Diabetes Paternal Grandfather Stroke Paternal Grandmother Diabetes Maternal Grandfather Obesity Maternal Grandmother Depression Maternal Grandfather Arthritis Paternal Grandmother Vision loss Maternal Grandfather Depression Paternal Grandmother Arthritis Paternal Grandfather SOCIAL HISTORY Social History Socioeconomic History Marital status: Single Tobacco Use Smoking status: Every Day Packs/day: 2.00 Types: Cigarettes Smokeless tobacco: Current Vaping Use Vaping Use: Never used Substance and Sexual Activity Alcohol use: Yes Comment: 15 shots of whiskey Drug use: Yes Types: Marijuana Comment: uses methadone, also buys pain meds on the streets SCREENINGS Clinical Opiate Withdrawal Scale Resting Pulse Rate: Measured After Patient is Sitting or Lying for One Minute: Pulse rate 80 or below GI Upset: Over Last Half Hour: No GI symptoms Sweating: Over Past Half Hour Not Accounted for by Room Temperature or Patient Activity: Subjective report of chills or flushing Tremor: Observation of Outstretched Hands: Gross tremor or muscle twitching Restlessness: Observation During Assessment: Frequent shifting or extraneous movements of legs/arms Yawning: Observation During Assessment: No yawning Pupil Size: Pupils pinned or normal size for room light Anxiety and Irritability: None Bone or Joint Aches: If Patient was Having Pain Previously, Only the Additional Component Attributed to Opiate Withdrawal is Scored: Mild diffuse discomfort Gooseflesh Skin: Skin is smooth Runny Nose or Tearing: Not Accounted for by Cold Symptoms or Allergies: Not present Clinical Opiate Withdrawal Scale Total Score: 9 PHYSICAL EXAM ED Triage Vitals Temp Pulse Resp BP -- -- -- -- SpO2 Temp src Heart Rate Source Patient Position -- -- -- -- BP Location FiO2 (%) -- -- Physical Exam CONSTITUTIONAL: He is anxious jittery and shaky but not in severe acute distress EYES: Sharon, EOMI, funduscopic exam normal NECK: Supple no rigidity or meningismus, no cervical adenopathy LUNGS: Breath sounds equal and clear to auscultation. Good air exchange, no wheezes rales or retractions, pulse oximetry is charted. HEART: Regular rate and rhythm without murmur thrill or rub, strong tones, auscultation is normal. ABDOMEN: Soft and nontender without guarding rebound rigidity or mass. Bowel sounds are present and normal in all quadrants. There is no palpable masses or aneurysms identified. No hepatosplenomegaly, normal abdominal exam. BACK: No thoracic or lumbar or flank pain on palpation and percussion. EXTREMITIES: Pulses are present, cap refills less than 2 seconds, no edema, no palpable tenderness negative cords, no signs of deep vein thrombosis. No erythema or warmth, or redness, neurovascularly intact and normal. NEURO: Cranial nerves grossly intact, motor and sensory exams normal. Normal ambulation. PSYCH: Awake alert oriented, normal mood and affect. DIAGNOSTIC RESULTS Procedures/EKG per my interpretation: EKG interpretation performed by myself can be found in [facility] &/or below: EKG interpreted by me shows sinus rhythm rate of 69 with no STEMI or ST segment depression or any significant ventricular arrhythmia. RADIOLOGY per my interpretation: Interpretation per the Radiologist below, if available at the time of this note: No orders to display ED BEDSIDE ULTRASOUND: Performed by ED Physician - none LABS: Labs Reviewed CBC WITH AUTO DIFFERENTIAL - Abnormal Result Value Auto WBC 12.1 (*) RBC 5.04 Hemoglobin 15.0 Hematocrit 45.6 MCV 90.5 MCH 29.8 MCHC 32.9 RDW 16.7 (*) Platelets 311 MPV 8.7 Neutrophils Relative 72.5 Lymphocytes Relative 17.6 (*) Monocytes Relative 7.0 Eosinophils Relative 1.5 Basophils Relative 1.0 Immature Grans % 0.4 (*) Neutrophils Absolute 8.8 (*) Lymphocytes Absolute 2.1 Monocytes Absolute 0.9 (*) Eosinophils Absolute 0.2 Basophils Absolute 0.1 Immature Grans Absolute 0.1 (*) COMPREHENSIVE METABOLIC PANEL - Abnormal SODIUM 137 POTASSIUM 3.4 (*) CHLORIDE 97 (*) CARBON DIOXIDE 34 (*) ANION GAP 6 UREA NITROGEN 20 CREATININE 0.69 GLUCOSE 117 (*) CALCIUM 8.7 AST (SGOT) 58 (*) ALT 32 ALKALINE PHOSPHATASE 164 (*) ALBUMIN 4.2 BILIRUBIN, TOTAL 0.8 TOTAL PROTEIN 7.7 eGFR >90.0 COMPLETE URINALYSIS - Abnormal Color, Urine Light [place] (*) Clarity, Urine Clear pH, Urine 6.5 Leukocytes, Urine 25 (*) Nitrite, Urine Negative Protein, Urine 70 (*) Glucose, Urine Normal Bilirubin, Urine Negative Ketones, Urine 20 (*) Urobilinogen, Urine 4 (*) Blood, Urine Negative Volume, Urine 12 mL RBC, Urine 0-2 WBC, Urine 0-2 Squamous Epithelial, Urine 3-5 Bacteria, Urine Few (*) Mucus, Urine Few SPECIFIC GRAVITY OF URINE (NUMERIC) 1.028 SARS-COV-2 ANTIGEN - Normal SARS-CoV-2 Antigen Negative ETHANOL - Normal ETHANOL IN SER/PLAS <0.010 Narrative: NOTE: This result is for medical treatment only. Analysis performed using non-forensic procedures. TROPONIN I - Normal TROPONIN I <0.012 Narrative: Patients with high levels of Biotin oral intake (ie >5 mg/day) may have falsely decreased Troponin levels. DRUGS OF ABUSE AMPHETAMINE SCREEN Negative BARBITURATES SCREEN Negative BENZODIAZEPINE SCREEN Negative COCAINE METAB. SCREEN Negative METHADONE SCREEN Positive OPIATES SCREEN Positive OXYCODONE SCREEN Positive PHENCYCLIDINE SCREEN Negative Narrative: The expected value for all of the drugs listed above is Negative. The following drugs or drug groups have been screened for by Immunoassay at the following thresholds: Amphetamine class (1000 ng/mL) Barbiturates (200 ng/mL) Benzodiazepines (200 ng/mL) Cocaine (300 ng/mL) Methadone (300 ng/mL) Opiates (300 ng/mL) Oxycodone (100 ng/mL) PCP (25 ng/mL) NOTE: These results are for medical treatment only. Analysis performed using non-forensic procedures. POSITIVE results are NOT confirmed by a more specific alternative method unless requested. If confirmation is needed, request confirmation under separate order. FENTANYL, URINE FENTANYL SCREEN, URINE Negative Narrative: Fentanyl has been screened for by Immunoassay at a 1 ng/ml threshold. POSITIVE results are not confirmed by a more specific alternative method unless requested. If confirmation is needed, request confirmation under separate order. NOTE: These results are for medical treatment only. Analysis performed using non-forensic procedures. COMPLETE URINALYSIS WITH REFLEX TO CULTURE Narrative: The following orders were created for panel order Urinalysis Complete with reflex to Culture. Procedure Abnormality Status --------- ------ Complete Urinalysis[[id number]] Abnormal Final result Please view results for these tests on the individual orders. CANNABINOID SCREEN, URINE THC, URINE Positive All other labs were within normal range or not returned as of this dictation. MDM/EMERGENCY DEPARTMENT COURSE: Vitals: Vitals: 08/26/22 1447 08/26/22 1519 08/26/22 1534 08/26/22 1549 BP: (!) 141/96 (!) 132/94 (!) 143/101 BP Location: Right arm Patient Position: Sitting Pulse: 78 90 88 96 Resp: 13 18 Temp: TempSrc: SpO2: 96% 95% 97% Weight: Height: Medications PHENobarbital (Luminal) tablet 97.2 mg (97.2 mg Oral Given 08/26/22 1038) aspirin EC EC tablet 81 mg (has no administration in time range) PHENobarbital (Luminal) tablet 97.2 mg (has no administration in time range) folic acid (Folvite) tablet 1 mg (has no administration in time range) Thiamine Mononitrate (Vitamin B1) tablet 100 mg (has no administration in time range) ondansetron (Zofran) tablet 4 mg (has no administration in time range) senna-docusate sodium (Senokot-S) 8.6-50 MG tablet 2 tablet (has no administration in time range) PHENobarbital (Luminal) injection 65 mg (has no administration in time range) methocarbamol (Robaxin) tablet 1,000 mg (has no administration in time range) baclofen (Lioresal) tablet 10 mg (has no administration in time range) cloNIDine (Catapres) tablet 0.1 mg (has no administration in time range) dicyclomine (Bentyl) tablet 10 mg (has no administration in time range) gabapentin (Neurontin) capsule 300 mg (has no administration in time range) traZODone (Desyrel) tablet 100 mg (has no administration in time range) hydrOXYzine pamoate (Vistaril) capsule 50 mg (has no administration in time range) ibuprofen tablet 600 mg (has no administration in time range) sodium chloride 0.9 % bolus 1,000 mL (0 mL IntraVENous Stopped 08/26/22 1040) LORazepam (Ativan) injection 2 mg (2 mg IntraVENous Given 08/26/22 0942) HYDROmorphone (Dilaudid) injection 1 mg (1 mg IntraVENous Given 08/26/22 1255) LORazepam (Ativan) injection 1 mg (1 mg IntraVENous Given 08/26/22 1407) MEDICAL DECISION MAKING Clinically here he was somewhat tremulous shaky and anxious but not in florid DTs, he states his last drink was last night about 10 or 12 hours ago, he has a prior history of both alcohol abuse and oral opioid abuse he has been on maintenance methadone 125 mg daily program for the last 7 months and states he only occasionally uses a Percocet because of his chronic back pain, that is a complicating factor given the fact he is scheduled for surgery on Tuesday. He does drink heavily alcohol 80 proof whiskey daily upwards of 15 shots daily with the last drink about 12 hours or so ago. He has been drinking heavily like that for greater than several months. In addition, pounding all this is that he does have a history of cardiac issues and apparently had an [facility] stenting placed over a year ago no current chest pain shortness of breath or diaphoresis. I will order IV, fluid bolus normal saline 1 L wide open, and Ativan 2 mg IV for his anxiety and his early withdrawals. CBC chemistries all toxicology studies were ordered by Maggieien order an EKG and troponin because of his prior history. Reexam: Patient still tremulous anxious, CIWA 11 score we opted to give him oral phenobarb 97.2 mg in addition to the Ativan we gave her earlier. Laboratory studies began to return, his chemistries show sodium 137 potassium 3.4 creatinine is normal glucose is 117 his LFTs show SGOT of 58 with a normal ALT of 32, his troponin was negative, his white count is 12.1, his COVID is negative his alcohol level is less than 0.01 his tox screen was positive for opioids/oxycodone but he had told me that he was taking 1/day because of his back that he was getting on the street his methadone screen was positive which we expected and he has a medical marijuana card and uses marijuana and his THC screen was positive. External note #1 reviewed by myself dated 09/29/2021 discharge summary from addiction medicine Dr. Gonzales noted the patient had a history of alcohol dependency depression and anxiety and he was treated for that. Consultation with Dr. Lyle addiction medicine today I spoke with him and because the patient's prior history of cardiac disease as well as he is currently on a methadone program and his alcohol consumption he believes he should be admitted for inpatient detox as well. He states that currently there is not an available bed however he will be making rounds later this afternoon and see if he can discharge somebody to make a bed available for him at that point. Progress note: Patient was still a little bit tremulous so we gave him an additional dose of Ativan now after he has had phenobarb orally and sequentially dosed with Ativan 3 mg IV total his blood pressure now is 141/96 and his heart rate is 78 and he is less anxious and less jittery. Progress note: At approximately 4:[address] Lyle called and informed that he had an open bed and was willing to accept the patient in transfer at this point time. REVAL: CONSULTS: None Consult made with addiction medicine note in my MDM above. FINAL IMPRESSION 1. Withdrawn from alcohol detoxification program DISPOSITION/PLAN Admit detoxing Accepting physician Dr. Lyle PATIENT REFERRED TO: No follow-up provider specified. DISCHARGE MEDICATIONS: New Prescriptions No medications on file (Comment: Please note this report has been produced using speech recognition software and may contain errors related to that system including errors in grammar, punctuation, and spelling, as well as words and phrases that may be inappropriate. If there are any questions or concerns please feel free to contact the dictating provider for clarification.) BASIL MARIANO MD (electronically signed) Emergency Medicine Provider Basil Mariano MD 08/26/22 [id number] [facility] 08-06-2022 Emergency department Note Patient called RN into the room, stated that he needed his IV removed immediately, that nothing was helping his pain, that he wanted to go and that he would manage the pain at home by himself. Mother was still present during above conversation, as RN began removing patients IV mother threw curtain back and slammed room door. IV removed with catheter intact, patient then ambulated off the unit prior to receiving discharge paperwork. Physician notified. Subha Mcallister RN 08/06/22 0150 [facility] 08-06-2022 Emergency department Note Patient called RN into the room, stated that he needed his IV removed immediately, that nothing was helping his pain, that he wanted to go and that he would manage the pain at home by himself. Mother was still present during above conversation, as RN began removing patients IV mother threw curtain back and slammed room door. IV removed with catheter intact, patient then ambulated off the unit prior to receiving discharge paperwork. Physician notified. Subha Mcallister RN 08/06/22 0150 All labs resulted except pt has not yet voided. RN to room, empty urinal noted to still be hanging on bed rail. Pt sitting upright with legs off side of cot with feet on floor, bouncing legs up and down repeatedly with no s/s of pain or distress noted. Pt was asked for urine specimen, pt stated no, pt stated he did not have to void. Pt was advised of the small quantity of urine needed and was offered to either use the urinal or ambulate to restroom with a specimen cup. Pt declined both. Pt was advised that the last item we needed was a urine specimen. Mother stated that pt has a hard time voiding. Physician was notified of this exchange with the pt. Melani Fraire RN 08/06/22 0146 Melani Fraire RN 08/06/22 0149 Pt could be heard from hallway speaking loudly and swearing, pt seems to be speaking with his visitor. Pt and visitor had already been made aware when labs were drawn that the physician would be back to speak with them when lab results are completed. Melani Fraire RN 08/06/22 0115 Attempt x 4 for IV access unsuccessful; 2 attempts by Subha RN to right a/c area and left a/c, additional 2 by Shaye ED medic to right forearm and right hand. Melani Fraire RN 08/06/22 0041 Melani Fraire RN 08/06/22 0043 Melani Fraire RN 08/06/22 0044 Pt ambulatory to ED15 with mother with c/o back pain which is chronic for him. Pt states has had back pain for a long time but is in extreme pain tonight. Pain is lower back to left side, into left hip and leg. Pt states pain has been worse x 3 days. Pt stating his pain is 20/10 during triage. He took naproxen last at 1800 but per [facility] records is also on methadone. Pt is A&Ox3, respirations even and unlabored, skin warm and dry. Pt moaning, twitching and erratic during triage, keeping eyes closed until asked by physician to open his eyes. Pt able to follow commands by physician to move all extremities. Pt denies incontinence of bowel or bladder. Emergency Department Encounter [facility] ED Patient: El Smith : 1980 Date of Evaluation: 08/06/2022 ED Provider: Feliciano Leos MD Note: I wore an N95 mask and gloves during this encounter. CHIEF COMPLAINT: Back pain HPI: El Smith is a 41 y.o. male with PMH per EMR review including alcohol abuse, back pain with sciatica, chronic leg pain, CAD, degenerative disc disease of the lumbar spine, hypertension, hyperlipidemia, opiate dependence, lumbar spinal stenosis, prior bacteremia, presents with concern for back pain. Patient reports chronic low back pain with radiation to the bilateral hips and down the legs, left greater than right, reports unchanged in character, symptoms worsened recently, reports he took Aleve at home which is minimally alleviating, denies associated fever chills, cough, chest pain, shortness of breath, abdominal pain, nausea vomiting, dysuria hematuria no frequency, bowel or bladder incontinence or retention, denies recent fall or injury, denies rashes or skin lesions. Patient denies recent spine surgery, reports lumbar discectomy June 2021. REVIEW OF SYSTEMS: Pertinent positives and negatives as per HPI. HISTORIES: PAST MEDICAL HISTORY: as per HPI SOCIAL HISTORY: Per EMR history of tobacco use, alcohol abuse, opiate dependence MEDICATIONS: Nursing notes and EMR reviewed ALLERGIES: Nursing notes and EMR reviewed PHYSICAL EXAM: Vital signs: reviewed General: Uncomfortable appearing, nontoxic Eyes: no conjunctival injection, eyes tracking HEENT: airway patent, mucous membranes moist Cardiovascular: regular rhythm, normal rate, symmetrical DP pulses palpable, bilateral feet warm and well-perfused Respiratory: non-labored breathing, breath sounds clear, no wheezing crackles or rhonchi Gastrointestinal: soft, non-distended, non-tender to deep palpation throughout Extremities: no obvious deformity, non edematous, no limitation range of motion bilateral shoulders, elbows, hips, knees, ankles Integumentary: warm, dry Neurologic: Alert, nonslurred speech, answer questions appropriately Sensory: Back of head and neck [intact] Inner thigh [intact bilaterally] Throughout hands [intact bilaterally] Throughout feet [intact bilaterally] Motor: Thigh adduction [intact bilaterally] Knee extension [intact bilaterally] Knee flexion [intact bilaterally] Ankle dorsiflexion [intact bilaterally] Point great toe up [intact bilaterally] Plantar flex toes [intact bilaterally] Shoulder abduction [intact bilaterally] Elbow flexion [intact bilaterally] Elbow extension [intact bilaterally] Wrist flexion [intact bilaterally] Wrist extension [intact bilaterally] Locksmith strength [intact bilaterally] Finger abduction [intact bilaterally] MEDICAL DECISION MAKING: Medications ketorolac (Toradol) injection 15 mg (15 mg IntraVENous Given 08/06/2245) cyclobenzaprine (Flexeril) tablet 10 mg (10 mg Oral Given 08/06/2245) El Smith is a 41 y.o. male who presents as above, with chronic low back pain with radiation to the hips and down the legs, history of bacteremia, alcohol abuse, illicit drug use, lumbar spinal stenosis, sciatica, lumbar degenerative disc disease, reports prior lumbar spine surgery 1 year ago, presentation concerning for exacerbation of chronic back pain related to known lumbar spine pathology, differential including spinal infectious process including discitis/osteomyelitis/epidural abscess, patient's neurologic exam is reassuring - non suggestive of acute spinal cord compressive syndrome including cauda equina, abdominal exam benign, denies symptoms, discussed with patient, will obtain work-up to evaluate including laboratory valuation, will treat with Toradol and Flexeril. Labs obtained, interpreted by me, notable for no leukocytosis, ESR 7, no renal dysfunction, CRP 5.9 I was informed by ED nursing staff that patient refused to provide urine sample, subsequently demanded to be discharged, and eloped prior to discussion of results further management and disposition, witnessed ambulate with steady gait DIAGNOSIS: back pain DISPOSITION: Eloped PRESCRIPTIONS: Discharge Medication List as of 08/06/2022 1:57 AM Comment: Please note this report has been produced using speech recognition software and may contain errors related to that system including errors in grammar, punctuation, and spelling, as well as words and phrases that may be inappropriate. If there are any questions or concerns please feel free to contact the dictating provider for clarification. Feliciano Leos MD [employer] Feliciano Leos MD 08/06/22 0158 documented in this encounter [facility] [place] 08-06-2022 Emergency department Note All labs resulted except pt has not yet voided. RN to room, empty urinal noted to still be hanging on bed rail. Pt sitting upright with legs off side of cot with feet on floor, bouncing legs up and down repeatedly with no s/s of pain or distress noted. Pt was asked for urine specimen, pt stated no, pt stated he did not have to void. Pt was advised of the small quantity of urine needed and was offered to either use the urinal or ambulate to restroom with a specimen cup. Pt declined both. Pt was advised that the last item we needed was a urine specimen. Mother stated that pt has a hard time voiding. Physician was notified of this exchange with the pt. Melani Fraire RN 08/06/22 0146 Melani Fraire RN 08/06/22 0149 T [facility] [place] 08-06-2022 Emergency department Note Pt could be heard from hallway speaking loudly and swearing, pt seems to be speaking with his visitor. Pt and visitor had already been made aware when labs were drawn that the physician would be back to speak with them when lab results are completed. Melani Fraire RN 08/06/22 0115 T [facility] [place] 08-06-2022 Emergency department Note Attempt x 4 for IV access unsuccessful; 2 attempts by Subha RN to right a/c area and left a/c, additional 2 by Shaye ED medic to right forearm and right hand. Melani Fraire RN 08/06/22 0041 Melani Fraire RN 08/06/22 0043 Melani Fraire RN 08/06/22 0044 T [facility] [place] 08-06-2022 Emergency department Triage note Pt ambulatory to ED15 with mother with c/o back pain which is chronic for him. Pt states has had back pain for a long time but is in extreme pain tonight. Pain is lower back to left side, into left hip and leg. Pt states pain has been worse x 3 days. Pt stating his pain is 20/10 during triage. He took naproxen last at 1800 but per [facility] records is also on methadone. Pt is A&Ox3, respirations even and unlabored, skin warm and dry. Pt moaning, twitching and erratic during triage, keeping eyes closed until asked by physician to open his eyes. Pt able to follow commands by physician to move all extremities. Pt denies incontinence of bowel or bladder. [facility] [place] 08-06-2022 Physician Emergency department Note Emergency Department Encounter [facility] ED Patient: El Smith : 1980 Date of Evaluation: 08/06/2022 ED Provider: Feliciano Leos MD Note: I wore an N95 mask and gloves during this encounter. CHIEF COMPLAINT: Back pain HPI: El Smith is a 41 y.o. male with PMH per EMR review including alcohol abuse, back pain with sciatica, chronic leg pain, CAD, degenerative disc disease of the lumbar spine, hypertension, hyperlipidemia, opiate dependence, lumbar spinal stenosis, prior bacteremia, presents with concern for back pain. Patient reports chronic low back pain with radiation to the bilateral hips and down the legs, left greater than right, reports unchanged in character, symptoms worsened recently, reports he took Aleve at home which is minimally alleviating, denies associated fever chills, cough, chest pain, shortness of breath, abdominal pain, nausea vomiting, dysuria hematuria no frequency, bowel or bladder incontinence or retention, denies recent fall or injury, denies rashes or skin lesions. Patient denies recent spine surgery, reports lumbar discectomy June 2021. REVIEW OF SYSTEMS: Pertinent positives and negatives as per HPI. HISTORIES: PAST MEDICAL HISTORY: as per HPI SOCIAL HISTORY: Per EMR history of tobacco use, alcohol abuse, opiate dependence MEDICATIONS: Nursing notes and EMR reviewed ALLERGIES: Nursing notes and EMR reviewed PHYSICAL EXAM: Vital signs: reviewed General: Uncomfortable appearing, nontoxic Eyes: no conjunctival injection, eyes tracking HEENT: airway patent, mucous membranes moist Cardiovascular: regular rhythm, normal rate, symmetrical DP pulses palpable, bilateral feet warm and well-perfused Respiratory: non-labored breathing, breath sounds clear, no wheezing crackles or rhonchi Gastrointestinal: soft, non-distended, non-tender to deep palpation throughout Extremities: no obvious deformity, non edematous, no limitation range of motion bilateral shoulders, elbows, hips, knees, ankles Integumentary: warm, dry Neurologic: Alert, nonslurred speech, answer questions appropriately Sensory: Back of head and neck [intact] Inner thigh [intact bilaterally] Throughout hands [intact bilaterally] Throughout feet [intact bilaterally] Motor: Thigh adduction [intact bilaterally] Knee extension [intact bilaterally] Knee flexion [intact bilaterally] Ankle dorsiflexion [intact bilaterally] Point great toe up [intact bilaterally] Plantar flex toes [intact bilaterally] Shoulder abduction [intact bilaterally] Elbow flexion [intact bilaterally] Elbow extension [intact bilaterally] Wrist flexion [intact bilaterally] Wrist extension [intact bilaterally] Locksmith strength [intact bilaterally] Finger abduction [intact bilaterally] MEDICAL DECISION MAKING: Medications ketorolac (Toradol) injection 15 mg (15 mg IntraVENous Given 08/06/2245) cyclobenzaprine (Flexeril) tablet 10 mg (10 mg Oral Given 08/06/2245) El Smith is a 41 y.o. male who presents as above, with chronic low back pain with radiation to the hips and down the legs, history of bacteremia, alcohol abuse, illicit drug use, lumbar spinal stenosis, sciatica, lumbar degenerative disc disease, reports prior lumbar spine surgery 1 year ago, presentation concerning for exacerbation of chronic back pain related to known lumbar spine pathology, differential including spinal infectious process including discitis/osteomyelitis/epidural abscess, patient's neurologic exam is reassuring - non suggestive of acute spinal cord compressive syndrome including cauda equina, abdominal exam benign, denies symptoms, discussed with patient, will obtain work-up to evaluate including laboratory valuation, will treat with Toradol and Flexeril. Labs obtained, interpreted by me, notable for no leukocytosis, ESR 7, no renal dysfunction, CRP 5.9 I was informed by ED nursing staff that patient refused to provide urine sample, subsequently demanded to be discharged, and eloped prior to discussion of results further management and disposition, witnessed ambulate with steady gait DIAGNOSIS: back pain DISPOSITION: Eloped PRESCRIPTIONS: Discharge Medication List as of 08/06/2022 1:57 AM Comment: Please note this report has been produced using speech recognition software and may contain errors related to that system including errors in grammar, punctuation, and spelling, as well as words and phrases that may be inappropriate. If there are any questions or concerns please feel free to contact the dictating provider for clarification. Feliciano Leos MD [facility] Feliciano Leos MD 08/06/22 0158 [facility] [employer] Work Phone: 07-28-2022 Emergency department Note Discharge instructions, follow up care, and pain management discussed with patient. All questions answered, there are no further questions at this time. IV removed, catheter intact, site covered with dry dressing. Patient tolerated well. RN reviewed follow up care with marketing systems manager and PCP. Patient ambulated off the unit independently at discharge. Subha Mcallister RN 07/28/22 0887 [facility] [place] 07-28-2022 Emergency department Note Discharge instructions, follow up care, and pain management discussed with patient. All questions answered, there are no further questions at this time. IV removed, catheter intact, site covered with dry dressing. Patient tolerated well. RN reviewed follow up care with marketing systems manager and PCP. Patient ambulated off the unit independently at discharge. Subha Mcallister RN 07/28/22 5547 ASAM assessment has been completed by addiction health care facilities inspector. Pt states that he has been drinking 10 shots of Whiskey a day. Last drink was at 1100. He reports that he experiences pain and sweats when he does experience alcohol WD, CIWA score 5 at this time. Pt reports that he drinks to dull the chronic back pain that he has had for the past 15 years, following a back injury in the [facility]. In addition to drinking he uses THC daily as well as Methadone. Pt is active at the [facility] in [place] and takes Methadone 125mg a day. He also buys pain pills on the streets and estimates that 2 weeks out of the month he has pain pills that he either swallows or snorts, last use was 3 days ago. [facility] spoke to the pt about pills possibly being laced and pt voiced understanding, stating that he does have Narcan at home. Mother at bedside also states that Narcan is available in the home. Pt states that he is not interested in sobriety at this time. He reports that if he wanted to abstain from pain pills or alcohol that he would reach out to [facility] for those services. Pt has a history of Heroin use but states that he has not used Heroin for the past 5 years. Pt is currently unemployed, mother states that she is in the process of getting an advocate to file for disability, she denies any assistance and states that she has all resources needed. Silvia Steward RN 07/28/22 2230 EMERGENCY DEPARTMENT ENCOUNTER Pt Name: El Smith Birthdate 1980 Date of evaluation: 07/28/2022 ED Provider: Betsy Rain MD CHIEF COMPLAINT Chief Complaint Patient presents with Palpitations HISTORY OF PRESENT ILLNESS (Location/Symptom, Timing/Onset, Context/Setting, Quality, Duration, Modifying Factors, Severity) Note limiting factors. I wore appropriate PPE for the entirety of this encounter. HPI El Smith is a 41 y.o. male who presents to the emergency department with chief complaint of palpitations and chest discomfort. Patient states the palpitations started around 2 AM this morning. He states he has an uncomfortable feeling in the chest but denies pain. Denies shortness of breath or nausea. Denies lightheadedness dizziness. Denies abdominal pain. Denies any leg swelling history of PE DVT recent surgeries hemoptysis or cancer. He does smoke cigarettes. Denies illicit drug use. He is on methadone. History of CAD with a stent back in 2021. States he has been compliant with his medications including aspirin and Brilinta. He does drink alcohol daily about 10 shots per day for the past month. He states his last drink was around 11 AM this morning and he has had withdrawal symptoms in the past. Nursing Notes were reviewed. Limitations to history: None Outside historians: None REVIEW OF SYSTEMS Review of Systems Constitutional: Negative for chills and fever. HENT: Negative for ear pain and sore throat. Eyes: Negative for pain and visual disturbance. Respiratory: Positive for chest tightness. Negative for cough and shortness of breath. Cardiovascular: Positive for palpitations. Negative for chest pain. Gastrointestinal: Negative for abdominal pain and vomiting. Genitourinary: Negative for dysuria and hematuria. Musculoskeletal: Negative for arthralgias and back pain. Skin: Negative for color change and rash. Neurological: Negative for seizures and syncope. All other systems reviewed and are negative. Pertinent positives and negatives as per HPI. 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 Gastroenteritis 11/23/2018 Last Assessment & Plan: Predominantly vomiting; ?food poisoning vs viral gastroenteritis IV hydration PRN antiemetics Hyperlipidemia Hypertension Iritis of left eye 09/20/2018 [facility] (myocardial infarction[facility] ([facility]) ([facility]) Opioid dependence, uncomplicated ([facility]) 10/27/2021 Presence of stent in right coronary artery 10/02/2021 Sciatica Spinal stenosis, lumbar Tobacco abuse SURGICAL HISTORY Past Surgical History: Procedure Laterality Date ARM SURGERY (HISTORICAL) metal rods in adam upper extremities COLONOSCOPY CORONARY ANGIOPLASTY WITH STENT PLACEMENT 09/23/2021 DORIS to proximal RCA FRACTURE SURGERY CURRENT MEDICATIONS Previous Medications ASPIRIN 81 MG EC TABLET Take 81 mg by mouth in the morning. CARVEDILOL (COREG) 12.5 MG TABLET LIDOCAINE (LIDODERM) 5 % PATCH Apply 1 patch topically daily. Remove & discard patch within 12 hours or as directed by MD. LISINOPRIL PO Take by mouth. METHADONE HCL PO Take by mouth. METHOCARBAMOL (ROBAXIN) 500 MG TABLET Take 2 tablets (1,000 mg) by mouth in the morning and 2 tablets (1,000 mg) at noon and 2 tablets (1,000 mg) before bedtime. Do all this for 10 days. TICAGRELOR (BRILINTA PO) Take by mouth. ALLERGIES Nickel and Other FAMILY HISTORY Family History Problem Relation Name Age of Onset Atrial fibrillation Sister Hyperlipidemia Mother Obesity Mother Asthma Mother Depression Mother Obesity Sister Depression Sister Arthritis Mother High Blood Pressure Maternal Grandmother Diabetes Mother Asthma Maternal Grandmother Substance Abuse Sister Diabetes Father Stroke Paternal Grandfather Arthritis Sister High Blood Pressure Mother Vision loss Maternal Grandmother Diabetes Maternal Grandmother Stroke Maternal Grandmother Arthritis Maternal Grandfather Arthritis Maternal Grandmother Cancer Maternal Grandfather Depression Maternal Grandmother Cancer Brother Diabetes Paternal Grandfather Stroke Paternal Grandmother Diabetes Maternal Grandfather Obesity Maternal Grandmother Depression Maternal Grandfather Arthritis Paternal Grandmother Vision loss Maternal Grandfather Depression Paternal Grandmother Arthritis Paternal Grandfather SOCIAL HISTORY Social History Socioeconomic History Marital status: Single Tobacco Use Smoking status: Every Day Packs/day: 2.00 Types: Cigarettes Smokeless tobacco: Current Vaping Use Vaping Use: Never used Substance and Sexual Activity Alcohol use: Not Currently Comment: 10 Shots of Whiskey/day Drug use: Yes Types: Marijuana SCREENINGS HEART Score History: Slightly suspicious ECG: Normal Age: <45 Risk Factors: >2 risk factors or hx of atherosclerotic disease Troponin: Less than or equal to normal limit HEART Score: 2 PHYSICAL EXAM ED Triage Vitals [07/28/22 2136] Temp Heart Rate Resp BP 36.6 C (97.9 F) 95 15 (!) 150/91 SpO2 Temp Source Heart Rate Source Patient Position 94 % Oral Monitor -- BP Location FiO2 (%) Right arm -- Physical Exam Vitals and nursing note reviewed. Constitutional: General: He is not in acute distress. Appearance: He is well-developed. He is not toxic-appearing or diaphoretic. HENT: Head: Normocephalic and atraumatic. Mouth/Throat: Mouth: Mucous membranes are moist. Pharynx: Oropharynx is clear. Eyes: General: No scleral icterus. Extraocular Movements: Extraocular movements intact. Conjunctiva/sclera: Conjunctivae normal. Pupils: Pupils are equal, round, and reactive to light. Cardiovascular: Rate and Rhythm: Normal rate and regular rhythm. Pulses: Normal pulses. Heart sounds: Normal heart sounds. No murmur heard. Pulmonary: Effort: Pulmonary effort is normal. No respiratory distress. Breath sounds: Normal breath sounds. Abdominal: Palpations: Abdomen is soft. Tenderness: There is no abdominal tenderness. Musculoskeletal: General: No swelling. Cervical back: Normal range of motion and neck supple. No rigidity. Right lower leg: No edema. Left lower leg: No edema. Comments: No calf tenderness or asymmetry bilaterally Skin: General: Skin is warm and dry. Capillary Refill: Capillary refill takes less than 2 seconds. Neurological: General: No focal deficit present. Mental Status: He is alert and oriented to person, place, and time. Cranial Nerves: No cranial nerve deficit. Psychiatric: Mood and Affect: Mood normal. DIAGNOSTIC RESULTS Procedures/EKG: Sinus rhythm rate of 92 with prolonged QRS LVH normal axis abnormal R wave progression, inferior infarct age undetermined, no ST changes, abnormal EKG EKG was reviewed by myself. Physician EKG interpretation can be found in [facility] RADIOLOGY (Per Emergency Physician): X-ray without acute findings on my interpretation. Interpretation per the Radiologist below, if available at the time of this note: XR chest 1 view Final Result FINDINGS/IMPRESSION: Limitations: No significant limitations. Lines, tubes, and devices: None Cardiomediastinal silhouette: Heart size is within normal limits. Lungs/Pleura: Bibasilar atelectasis/scarring. Apparent ovoid nodular opacity in the region of the lingula could reflect summation artifact from rib shadow. Small focus of airspace disease or other etiology is also possible. Recommend follow-up to ensure resolution. No sizable pleural effusions. No pneumothorax Osseous structures: Degenerative spondylosis in the visualized spine. Soft tissues: No soft tissue abnormality is detected. Report Dictated on Electronically Signed By: Mark Finnegan Electronically Signed Date/Time: 07/28/2022 10:01 PM EDT ED BEDSIDE ULTRASOUND: Performed by ED Physician - none LABS: Labs Reviewed BASIC METABOLIC PANEL - Abnormal Result Value SODIUM 136 POTASSIUM 3.2 (*) CHLORIDE 98 CARBON DIOXIDE 31 (*) UREA NITROGEN 19 CREATININE 0.61 (*) GLUCOSE 93 CALCIUM 8.7 ANION GAP 7 eGFR >90.0 CBC WITH AUTO DIFFERENTIAL - Abnormal Auto WBC 12.6 (*) RBC 5.29 Hemoglobin 15.2 Hematocrit 45.2 MCV 85.4 MCH 28.7 MCHC 33.6 RDW 16.3 (*) Platelets 406 MPV 8.6 Neutrophils Relative 60.9 Lymphocytes Relative 30.0 Monocytes Relative 7.1 Eosinophils Relative 0.7 (*) Basophils Relative 0.9 Immature Grans % 0.4 (*) Neutrophils Absolute 7.7 (*) Lymphocytes Absolute 3.8 Monocytes Absolute 0.9 (*) Eosinophils Absolute 0.1 Basophils Absolute 0.1 Immature Grans Absolute 0.1 (*) TROPONIN I - Normal TROPONIN I <0.012 Narrative: Patients with high levels of Biotin oral intake (ie >5 mg/day) may have falsely decreased Troponin levels. MAGNESIUM - Normal MAGNESIUM 1.8 All other labs were within normal range or not returned as of this dictation. EMERGENCY DEPARTMENT COURSE and DIFFERENTIAL DIAGNOSIS/MDM: Vitals: Vitals: 07/28/226 07/28/222216 BP: (!) 150/91 BP Location: Right arm Pulse: 95 89 Resp: 15 Temp: 36.6 C (97.9 F) TempSrc: Oral SpO2: 94% Weight: 83.9 kg (185 lb) Height: 1.778 m (5' 10) 41-year-old male here with palpitations and chest discomfort. History of heart disease smoking and is on methadone, alcohol abuse. Last drink 11 AM. He is slightly hypertensive but he is not tachycardic. He is in no acute distress. His EKG shows no ischemia or arrhythmia. Differential includes ACS, PE, dissection, pneumonia, metabolic disturbance, alcohol withdrawal. Low suspicion for PE low wells score or dissection without severe chest pain ripping to back and equal radial pulses without severe hypertension. Plan is for CBC BMP troponin magnesium level, IV magnesium fluids Toradol and Ativan, chest x-ray and reassessment. His heart score is 2 if he has a normal troponin. Diagnoses as of 07/28/222240 Palpitations The patient presented with chief complaint of palpitations. The differential diagnosis associated with this patient's presentation includes as above. Our workup consisted of ordering/reviewing: As above. I also reviewed external records from Inpatient notes consult note by cardiovascular from 09/27/2021 when patient had ACS and was stented. Patient is in agreement with this plan. Patient's care was impacted by Heart disease. Patient's care was significantly impacted by social determinants of health including Alcoholism. Medications sodium chloride 0.9 % bolus 500 mL (500 mL IntraVENous New Bag 07/28/222150) magnesium sulfate IVPB premix 2,000 mg (2,000 mg IntraVENous New Bag 07/28/222158) ketorolac (Toradol) injection 15 mg (15 mg IntraVENous Given 07/28/222150) LORazepam (Ativan) injection 1 mg (1 mg IntraVENous Given 07/28/222150) potassium chloride (Klor-Con) packet 20 mEq (20 mEq Oral Given 07/28/222239) REVAL: Labs and imaging reviewed. Normal troponin. Potassium slightly low. Replaced orally. Patient symptomatically improved resting comfortably now. No signs of acute significant alcohol withdrawal. Able for discharge. CRITICAL CARE TIME None CONSULTS: None PROCEDURES: Unless otherwise noted below, none Procedures Patients symptoms are consistent with sepsis, severe sepsis, or septic shock (If yes use .sepsiscoremeasure): no FINAL IMPRESSION 1. Palpitations DISPOSITION Discharge 07/28/2022 10:40:05 PM PATIENT REFERRED TO: Kay Kerr [address] [place] [id number] As needed Erlin Chambers MD [address] [facility] [address] [facility] [phone] Schedule an appointment as soon as possible for a visit DISCHARGE MEDICATIONS: New Prescriptions No medications on file (Comment: Please note this report has been produced using speech recognition software and may contain errors related to that system including errors in grammar, punctuation, and spelling, as well as words and phrases that may be inappropriate. If there are any questions or concerns please feel free to contact the dictating provider for clarification.) Betsy Rain MD (electronically signed) Emergency Medicine Provider Betsy Rain MD 07/28/222241 Patient ambulatory to room 6 presenting with c/o of heart palpitations that started around 3am that awoke him from sleep. Patient has a history of a heart attack last September. Patient reports no other symptoms in addition to palpitations, no chest pain, no shortness of breath or dizziness. Patient reports that he is a daily smoker, and daily drinker of 10 shots of whiskey, as well as a daily marajuana user. Patient did not take anything for the palpitations but did take his last drink at 11am and had two shots of whiskey. EKG performed and copy handed to physician. Patient was placed on stakes player and continuous pulse oximetry, call light in reach. documented in this encounter [facility] 07-28-2022 Hospital Discharge instructions Betsy Rain MD - 07/28/2022 10:40 PM EDT No evidence of heart damage or abnormal heart rhythm while here. Potassium was slightly low. Recommend following up with marketing systems manager for possible heart monitor if symptoms persist. The following attachments cannot be sent through Care Everywhere.Palpitations Discharge Instructions (Indian)documented in this encounter [facility] 07-28-2022 Emergency department Note ASAM assessment has been completed by addiction health care facilities inspector. Pt states that he has been drinking 10 shots of Whiskey a day. Last drink was at 1100. He reports that he experiences pain and sweats when he does experience alcohol WD, CIWA score 5 at this time. Pt reports that he drinks to dull the chronic back pain that he has had for the past 15 years, following a back injury in the [facility]. In addition to drinking he uses THC daily as well as Methadone. Pt is active at the [facility] in [place] and takes Methadone 125mg a day. He also buys pain pills on the streets and estimates that 2 weeks out of the month he has pain pills that he either swallows or snorts, last use was 3 days ago. [facility] spoke to the pt about pills possibly being laced and pt voiced understanding, stating that he does have Narcan at home. Mother at bedside also states that Narcan is available in the home. Pt states that he is not interested in sobriety at this time. He reports that if he wanted to abstain from pain pills or alcohol that he would reach out to [facility] for those services. Pt has a history of Heroin use but states that he has not used Heroin for the past 5 years. Pt is currently unemployed, mother states that she is in the process of getting an advocate to file for disability, she denies any assistance and states that she has all resources needed. Silvia Steward RN 07/28/225 [facility] 07-28-2022 Note Sinus rhythm Abnormal R-wave progression, early transition Probable inferior infarct, old no acute st elevation Compared to ECG 05/10/2022 12:17:59 Left ventricular hypertrophy no longer present Myocardial infarct finding still present Electronically Signed On 07-28-2022 22:02:43 EDT by Betsy Rain [facility] 07-28-2022 Note Sinus rhythm Abnormal R-wave progression, early transition Probable inferior infarct, old no acute st elevation Compared to ECG 05/10/2022 12:17:59 Left ventricular hypertrophy no longer present Myocardial infarct finding still present Electronically Signed On 07-28-2022 22:02:43 EDT by Betsy Rain [facility] 07-28-2022 Emergency department Triage note Patient ambulatory to room 6 presenting with c/o of heart palpitations that started around 3am that awoke him from sleep. Patient has a history of a heart attack last September. Patient reports no other symptoms in addition to palpitations, no chest pain, no shortness of breath or dizziness. Patient reports that he is a daily smoker, and daily drinker of 10 shots of whiskey, as well as a daily marajuana user. Patient did not take anything for the palpitations but did take his last drink at 11am and had two shots of whiskey. EKG performed and copy handed to physician. Patient was placed on stakes player and continuous pulse oximetry, call light in reach. [facility] 07-28-2022 Physician Emergency department Note EMERGENCY DEPARTMENT ENCOUNTER Pt Name: El Smith Birthdate 1980 Date of evaluation: 07/28/2022 ED Provider: Betsy Rain MD CHIEF COMPLAINT Chief Complaint Patient presents with Palpitations HISTORY OF PRESENT ILLNESS (Location/Symptom, Timing/Onset, Context/Setting, Quality, Duration, Modifying Factors, Severity) Note limiting factors. I wore appropriate PPE for the entirety of this encounter. HPI El Smith is a 41 y.o. male who presents to the emergency department with chief complaint of palpitations and chest discomfort. Patient states the palpitations started around 2 AM this morning. He states he has an uncomfortable feeling in the chest but denies pain. Denies shortness of breath or nausea. Denies lightheadedness dizziness. Denies abdominal pain. Denies any leg swelling history of PE DVT recent surgeries hemoptysis or cancer. He does smoke cigarettes. Denies illicit drug use. He is on methadone. History of CAD with a stent back in 2021. States he has been compliant with his medications including aspirin and Brilinta. He does drink alcohol daily about 10 shots per day for the past month. He states his last drink was around 11 AM this morning and he has had withdrawal symptoms in the past. Nursing Notes were reviewed. Limitations to history: None Outside historians: None REVIEW OF SYSTEMS Review of Systems Constitutional: Negative for chills and fever. HENT: Negative for ear pain and sore throat. Eyes: Negative for pain and visual disturbance. Respiratory: Positive for chest tightness. Negative for cough and shortness of breath. Cardiovascular: Positive for palpitations. Negative for chest pain. Gastrointestinal: Negative for abdominal pain and vomiting. Genitourinary: Negative for dysuria and hematuria. Musculoskeletal: Negative for arthralgias and back pain. Skin: Negative for color change and rash. Neurological: Negative for seizures and syncope. All other systems reviewed and are negative. Pertinent positives and negatives as per HPI. 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 Gastroenteritis 11/23/2018 Last Assessment & Plan: Predominantly vomiting; ?food poisoning vs viral gastroenteritis IV hydration PRN antiemetics Hyperlipidemia Hypertension Iritis of left eye 09/20/2018 [facility] (myocardial infarction) (CMS/HCC) ([facility]) Opioid dependence, uncomplicated ([facility]) 10/27/2021 Presence of stent in right coronary artery 10/02/2021 Sciatica Spinal stenosis, lumbar Tobacco abuse SURGICAL HISTORY Past Surgical History: Procedure Laterality Date ARM SURGERY (HISTORICAL) metal rods in adam upper extremities COLONOSCOPY CORONARY ANGIOPLASTY WITH STENT PLACEMENT 09/23/2021 DORIS to proximal RCA FRACTURE SURGERY CURRENT MEDICATIONS Previous Medications ASPIRIN 81 MG EC TABLET Take 81 mg by mouth in the morning. CARVEDILOL (COREG) 12.5 MG TABLET LIDOCAINE (LIDODERM) 5 % PATCH Apply 1 patch topically daily. Remove & discard patch within 12 hours or as directed by MD. LISINOPRIL PO Take by mouth. METHADONE HCL PO Take by mouth. METHOCARBAMOL (ROBAXIN) 500 MG TABLET Take 2 tablets (1,000 mg) by mouth in the morning and 2 tablets (1,000 mg) at noon and 2 tablets (1,000 mg) before bedtime. Do all this for 10 days. TICAGRELOR (BRILINTA PO) Take by mouth. ALLERGIES Nickel and Other FAMILY HISTORY Family History Problem Relation Name Age of Onset Atrial fibrillation Sister Hyperlipidemia Mother Obesity Mother Asthma Mother Depression Mother Obesity Sister Depression Sister Arthritis Mother High Blood Pressure Maternal Grandmother Diabetes Mother Asthma Maternal Grandmother Substance Abuse Sister Diabetes Father Stroke Paternal Grandfather Arthritis Sister High Blood Pressure Mother Vision loss Maternal Grandmother Diabetes Maternal Grandmother Stroke Maternal Grandmother Arthritis Maternal Grandfather Arthritis Maternal Grandmother Cancer Maternal Grandfather Depression Maternal Grandmother Cancer Brother Diabetes Paternal Grandfather Stroke Paternal Grandmother Diabetes Maternal Grandfather Obesity Maternal Grandmother Depression Maternal Grandfather Arthritis Paternal Grandmother Vision loss Maternal Grandfather Depression Paternal Grandmother Arthritis Paternal Grandfather SOCIAL HISTORY Social History Socioeconomic History Marital status: Single Tobacco Use Smoking status: Every Day Packs/day: 2.00 Types: Cigarettes Smokeless tobacco: Current Vaping Use Vaping Use: Never used Substance and Sexual Activity Alcohol use: Not Currently Comment: 10 Shots of Whiskey/day Drug use: Yes Types: Marijuana SCREENINGS HEART Score History: Slightly suspicious ECG: Normal Age: <45 Risk Factors: >2 risk factors or hx of atherosclerotic disease Troponin: Less than or equal to normal limit HEART Score: 2 PHYSICAL EXAM ED Triage Vitals [07/28/222135] Temp Heart Rate Resp BP 36.6 C (97.9 F) 95 15 (!) 150/91 SpO2 Temp Source Heart Rate Source Patient Position 94 % Oral Monitor -- BP Location FiO2 (%) Right arm -- Physical Exam Vitals and nursing note reviewed. Constitutional: General: He is not in acute distress. Appearance: He is well-developed. He is not toxic-appearing or diaphoretic. HENT: Head: Normocephalic and atraumatic. Mouth/Throat: Mouth: Mucous membranes are moist. Pharynx: Oropharynx is clear. Eyes: General: No scleral icterus. Extraocular Movements: Extraocular movements intact. Conjunctiva/sclera: Conjunctivae normal. Pupils: Pupils are equal, round, and reactive to light. Cardiovascular: Rate and Rhythm: Normal rate and regular rhythm. Pulses: Normal pulses. Heart sounds: Normal heart sounds. No murmur heard. Pulmonary: Effort: Pulmonary effort is normal. No respiratory distress. Breath sounds: Normal breath sounds. Abdominal: Palpations: Abdomen is soft. Tenderness: There is no abdominal tenderness. Musculoskeletal: General: No swelling. Cervical back: Normal range of motion and neck supple. No rigidity. Right lower leg: No edema. Left lower leg: No edema. Comments: No calf tenderness or asymmetry bilaterally Skin: General: Skin is warm and dry. Capillary Refill: Capillary refill takes less than 2 seconds. Neurological: General: No focal deficit present. Mental Status: He is alert and oriented to person, place, and time. Cranial Nerves: No cranial nerve deficit. Psychiatric: Mood and Affect: Mood normal. DIAGNOSTIC RESULTS Procedures/EKG: Sinus rhythm rate of 92 with prolonged QRS LVH normal axis abnormal R wave progression, inferior infarct age undetermined, no ST changes, abnormal EKG EKG was reviewed by myself. Physician EKG interpretation can be found in [facility] RADIOLOGY (Per Emergency Physician): X-ray without acute findings on my interpretation. Interpretation per the Radiologist below, if available at the time of this note: XR chest 1 view Final Result FINDINGS/IMPRESSION: Limitations: No significant limitations. Lines, tubes, and devices: None Cardiomediastinal silhouette: Heart size is within normal limits. Lungs/Pleura: Bibasilar atelectasis/scarring. Apparent ovoid nodular opacity in the region of the lingula could reflect summation artifact from rib shadow. Small focus of airspace disease or other etiology is also possible. Recommend follow-up to ensure resolution. No sizable pleural effusions. No pneumothorax Osseous structures: Degenerative spondylosis in the visualized spine. Soft tissues: No soft tissue abnormality is detected. Report Dictated on Electronically Signed By: Mark Finnegan Electronically Signed Date/Time: 07/28/2022 10:01 PM EDT ED BEDSIDE ULTRASOUND: Performed by ED Physician - none LABS: Labs Reviewed BASIC METABOLIC PANEL - Abnormal Result Value SODIUM 136 POTASSIUM 3.2 (*) CHLORIDE 98 CARBON DIOXIDE 31 (*) UREA NITROGEN 19 CREATININE 0.61 (*) GLUCOSE 93 CALCIUM 8.7 ANION GAP 7 eGFR >90.0 CBC WITH AUTO DIFFERENTIAL - Abnormal Auto WBC 12.6 (*) RBC 5.29 Hemoglobin 15.2 Hematocrit 45.2 MCV 85.4 MCH 28.7 MCHC 33.6 RDW 16.3 (*) Platelets 406 MPV 8.6 Neutrophils Relative 60.9 Lymphocytes Relative 30.0 Monocytes Relative 7.1 Eosinophils Relative 0.7 (*) Basophils Relative 0.9 Immature Grans % 0.4 (*) Neutrophils Absolute 7.7 (*) Lymphocytes Absolute 3.8 Monocytes Absolute 0.9 (*) Eosinophils Absolute 0.1 Basophils Absolute 0.1 Immature Grans Absolute 0.1 (*) TROPONIN I - Normal TROPONIN I <0.012 Narrative: Patients with high levels of Biotin oral intake (ie >5 mg/day) may have falsely decreased Troponin levels. MAGNESIUM - Normal MAGNESIUM 1.8 All other labs were within normal range or not returned as of this dictation. EMERGENCY DEPARTMENT COURSE and DIFFERENTIAL DIAGNOSIS/MDM: Vitals: Vitals: 07/28/22 2136 07/28/22 2217 BP: (!) 150/91 BP Location: Right arm Pulse: 95 89 Resp: 15 Temp: 36.6 C (97.9 F) TempSrc: Oral SpO2: 94% Weight: 83.9 kg (185 lb) Height: 1.778 m (5' 10) 41-year-old male here with palpitations and chest discomfort. History of heart disease smoking and is on methadone, alcohol abuse. Last drink 11 AM. He is slightly hypertensive but he is not tachycardic. He is in no acute distress. His EKG shows no ischemia or arrhythmia. Differential includes ACS, PE, dissection, pneumonia, metabolic disturbance, alcohol withdrawal. Low suspicion for PE low wells score or dissection without severe chest pain ripping to back and equal radial pulses without severe hypertension. Plan is for CBC BMP troponin magnesium level, IV magnesium fluids Toradol and Ativan, chest x-ray and reassessment. His heart score is 2 if he has a normal troponin. Diagnoses as of 07/28/222240 Palpitations The patient presented with chief complaint of palpitations. The differential diagnosis associated with this patient's presentation includes as above. Our workup consisted of ordering/reviewing: As above. I also reviewed external records from Inpatient notes consult note by cardiovascular from 09/27/2021 when patient had ACS and was stented. Patient is in agreement with this plan. Patient's care was impacted by Heart disease. Patient's care was significantly impacted by social determinants of health including Alcoholism. Medications sodium chloride 0.9 % bolus 500 mL (500 mL IntraVENous New Bag 07/28/222150) magnesium sulfate IVPB premix 2,000 mg (2,000 mg IntraVENous New Bag 07/28/222158) ketorolac (Toradol) injection 15 mg (15 mg IntraVENous Given 07/28/222150) LORazepam (Ativan) injection 1 mg (1 mg IntraVENous Given 07/28/222150) potassium chloride (Klor-Con) packet 20 mEq (20 mEq Oral Given 07/28/222239) REVAL: Labs and imaging reviewed. Normal troponin. Potassium slightly low. Replaced orally. Patient symptomatically improved resting comfortably now. No signs of acute significant alcohol withdrawal. Able for discharge. CRITICAL CARE TIME None CONSULTS: None PROCEDURES: Unless otherwise noted below, none Procedures Patients symptoms are consistent with sepsis, severe sepsis, or septic shock (If yes use .sepsiscoremeasure): no FINAL IMPRESSION 1. Palpitations DISPOSITION Discharge 07/28/2022 10:40:05 PM PATIENT REFERRED TO: Kay Kerr [address] [place] [phone] As needed Erlin Chambers MD [address] [facility] [address] [facility] [address] Schedule an appointment as soon as possible for a visit DISCHARGE MEDICATIONS: New Prescriptions No medications on file (Comment: Please note this report has been produced using speech recognition software and may contain errors related to that system including errors in grammar, punctuation, and spelling, as well as words and phrases that may be inappropriate. If there are any questions or concerns please feel free to contact the dictating provider for clarification.) Betsy Rain MD (electronically signed) Emergency Medicine Provider Betsy Rain MD 07/28/222241 [employer] Phone: 04-24-2022 Emergency department Note EMERGENCY DEPARTMENT ENCOUNTER Pt Name: El Smith Birthdate 1980 Date of evaluation: 04/24/2022 ED Provider: Kd Toledo DO CHIEF COMPLAINT Chief Complaint Patient presents with Hip Pain Left HISTORY OF PRESENT ILLNESS (Location/Symptom, Timing/Onset, Context/Setting, Quality, Duration, Modifying Factors, Severity) Note limiting factors. I wore appropriate PPE for the entirety of this encounter. HPI El Smith is a 41 y.o. male who presents to the emergency department with left hip pain. The patient reports he has been experiencing symptoms over the past 1 week. He admits to a history of falls, he reports that he falls regularly at baseline. He is unsure of the hip pain is associated with his falls. Pain located in the left hip, described as sharp, radiating down left lower extremity. He reports [id number] sensation along the posterior left leg into the sole of the left foot. Nursing Notes were reviewed. 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 Gastroenteritis 11/23/2018 Last Assessment & Plan: Predominantly vomiting; ?food poisoning vs viral gastroenteritis IV hydration PRN antiemetics Hyperlipidemia Hypertension Iritis of left eye 09/20/2018 Opioid dependence, uncomplicated (HCC) 10/27/2021 Presence of stent in right coronary artery 10/02/2021 Sciatica Spinal stenosis, lumbar Tobacco abuse SURGICAL HISTORY Past Surgical History: Procedure Laterality Date ARM SURGERY (HISTORICAL) metal rods in adam upper extremities COLONOSCOPY CORONARY ANGIOPLASTY WITH STENT PLACEMENT 09/23/2021 DORIS to proximal RCA FRACTURE SURGERY CURRENT MEDICATIONS Previous Medications ASPIRIN 81 MG EC TABLET Take 81 mg by mouth in the morning. CARVEDILOL (COREG) 12.5 MG TABLET LISINOPRIL PO Take by mouth. METHADONE HCL PO Take by mouth. TICAGRELOR (BRILINTA PO) Take by mouth. ALLERGIES Nickel and Other FAMILY HISTORY Family History Problem Relation Name Age of Onset Atrial fibrillation Sister Hyperlipidemia Mother Obesity Mother Asthma Mother Depression Mother Obesity Sister Depression Sister Arthritis Mother High Blood Pressure Maternal Grandmother Diabetes Mother Asthma Maternal Grandmother Substance Abuse Sister Diabetes Father Stroke Paternal Grandfather Arthritis Sister High Blood Pressure Mother Vision loss Maternal Grandmother Diabetes Maternal Grandmother Stroke Maternal Grandmother Arthritis Maternal Grandfather Arthritis Maternal Grandmother Cancer Maternal Grandfather Depression Maternal Grandmother Cancer Brother Diabetes Paternal Grandfather Stroke Paternal Grandmother Diabetes Maternal Grandfather Obesity Maternal Grandmother Depression Maternal Grandfather Arthritis Paternal Grandmother Vision loss Maternal Grandfather Depression Paternal Grandmother Arthritis Paternal Grandfather SOCIAL HISTORY Social History Socioeconomic History Marital status: Single Tobacco Use Smoking status: Every Day Packs/day: 2.00 Types: Cigarettes Smokeless tobacco: Current Vaping Use Vaping Use: Never used Substance and Sexual Activity Alcohol use: Not Currently Drug use: Yes Types: Marijuana SCREENINGS PHYSICAL EXAM ED Triage Vitals Temp Pulse Resp BP -- -- -- -- SpO2 Temp src Heart Rate Source Patient Position -- -- -- -- BP Location FiO2 (%) -- -- Physical Exam Constitutional: General: He is not in acute distress. HENT: Head: Normocephalic. Eyes: Conjunctiva/sclera: Conjunctivae normal. Pulmonary: Effort: Pulmonary effort is normal. Musculoskeletal: General: No deformity. Comments: Tenderness to palpation of the left gluteal muscles, reproduction of paresthesias down the left lower extremity. Skin: General: Skin is warm and dry. Neurological: Gait: Gait is intact. Psychiatric: Mood and Affect: Mood normal. DIAGNOSTIC RESULTS RADIOLOGY (Per Emergency Physician): Interpretation per the Radiologist below, if available at the time of this note: XR hip left 2 or 3 views Final Result No acute osseous abnormality identified. Report Dictated on Electronically Signed By: Phillip Oshea Electronically Signed Date/Time: 04/24/2022 4:59 PM EST LABS: Labs Reviewed - No data to display All other labs were within normal range or not returned as of this dictation. EMERGENCY DEPARTMENT COURSE and DIFFERENTIAL DIAGNOSIS/MDM: Vitals: Vitals: 04/24/22 1534 BP: (!) 122/97 BP Location: Right arm Patient Position: Sitting Pulse: 82 Resp: 20 Temp: 36.6 C (97.9 F) TempSrc: Oral SpO2: 97% Weight: 90.7 kg (200 lb) Medications ketorolac (Toradol) injection 30 mg (30 mg IntraMUSCular Given 04/24/22 1557) acetaminophen (Tylenol) tablet 1,000 mg (1,000 mg Oral Given 04/24/22 1556) cyclobenzaprine (Flexeril) tablet 10 mg (10 mg Oral Given 04/24/22 1557) MDM The patient presented with chief complaint of left hip pain. The patient appears well, in no acute distress, vitals are stable.The patient has tenderness in the gluteal region with history of and reproduction of symptoms down the left lower extremity consistent with sciatica, possible piriformis syndrome.Given that the patient has history of multiple falls, x-ray was ordered for rule out fracture.The patient was given Toradol 30 mg IM and Tylenol 1 g p.o. The differential diagnosis associated with this patient's presentation includes but is not limited to sciatica, piriformis syndrome, muscle strain, left hip fracture. Our workup consisted of ordering/reviewing: Left hip plain films. To aid in management, I performed an independent interpretation of all laboratory tests, EKG, imaging, and other diagnostics ordered. Results reveal x-rays negative for acute fracture as interpreted by me. See radiologist note for further details. The patient was updated on the results, questions were answered. The patient is currently resting underway, vitals are stable. The patient will be discharged with close follow-up to PCP. They were instructed to return back to the emergency department if their symptoms change or worsen. The patient demonstrated general understanding and was agreeable with the medical plan. Rivka Toledo DO am the radiotelegrapher of record. PROCEDURES: Unless otherwise noted below, none Procedures FINAL IMPRESSION 1. Left hip pain DISPOSITION Discharge 04/24/2022 05:07:18 PM PATIENT REFERRED TO: Kay Kerr [address] [place] [phone] Schedule an appointment as soon as possible for a visit [facility] ED [address] [facility] [phone] If symptoms worsen DISCHARGE MEDICATIONS: New Prescriptions KETOROLAC (TORADOL) 10 MG TABLET Take 1 tablet (10 mg) by mouth every 6 hours as needed for moderate pain (4-6) for up to 5 days. LIDOCAINE (LIDODERM) 5 % PATCH Apply 1 patch topically daily. Remove & discard patch within 12 hours or as directed by . METHOCARBAMOL (ROBAXIN) 500 MG TABLET Take 2 tablets (1,000 mg) by mouth in the morning and 2 tablets (1,000 mg) at noon and 2 tablets (1,000 mg) before bedtime. Do all this for 10 days. (Comment: Please note this report has been produced using speech recognition software and may contain errors related to that system including errors in grammar, punctuation, and spelling, as well as words and phrases that may be inappropriate. If there are any questions or concerns please feel free to contact the dictating provider for clarification.) Kd Toledo DO (electronically signed) Emergency Medicine Provider Kd Toledo DO 04/24/22 1711 Patient arrived ambulatory using a cane to room 2 without difficulty. Patient complains of left hip pain. Patient states it feels as though his hip is out of the socket. Patient denies any injury to the left hip. Significant other states that patient has had multiple falls in the past couple months because his legs just give out. Patient states pain 10/10 and is sharp and throbbing. Patient states that he has tingling down his left leg and numbness on the bottom of his foot. documented in this encounter [facility] 04-24-2022 Emergency department Triage note Patient arrived ambulatory using a cane to room 2 without difficulty. Patient complains of left hip pain. Patient states it feels as though his hip is out of the socket. Patient denies any injury to the left hip. Significant other states that patient has had multiple falls in the past couple months because his legs just give out. Patient states pain 10/10 and is sharp and throbbing. Patient states that he has tingling down his left leg and numbness on the bottom of his foot. [facility] 04-24-2022 Physician Emergency department Note EMERGENCY DEPARTMENT ENCOUNTER Pt Name: El Smith Birthdate 1980 Date of evaluation: 04/24/2022 ED Provider: Kd Toledo DO CHIEF COMPLAINT Chief Complaint Patient presents with Hip Pain Left HISTORY OF PRESENT ILLNESS (Location/Symptom, Timing/Onset, Context/Setting, Quality, Duration, Modifying Factors, Severity) Note limiting factors. I wore appropriate PPE for the entirety of this encounter. HPI El Smith is a 41 y.o. male who presents to the emergency department with left hip pain. The patient reports he has been experiencing symptoms over the past 1 week. He admits to a history of falls, he reports that he falls regularly at baseline. He is unsure of the hip pain is associated with his falls. Pain located in the left hip, described as sharp, radiating down left lower extremity. He reports [id number] sensation along the posterior left leg into the sole of the left foot. Nursing Notes were reviewed. 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 Gastroenteritis 11/23/2018 Last Assessment & Plan: Predominantly vomiting; ?food poisoning vs viral gastroenteritis IV hydration PRN antiemetics Hyperlipidemia Hypertension Iritis of left eye 09/20/2018 Opioid dependence, uncomplicated (HCC) 10/27/2021 Presence of stent in right coronary artery 10/02/2021 Sciatica Spinal stenosis, lumbar Tobacco abuse SURGICAL HISTORY Past Surgical History: Procedure Laterality Date ARM SURGERY (HISTORICAL) metal rods in adam upper extremities COLONOSCOPY CORONARY ANGIOPLASTY WITH STENT PLACEMENT 09/23/2021 DORIS to proximal RCA FRACTURE SURGERY CURRENT MEDICATIONS Previous Medications ASPIRIN 81 MG EC TABLET Take 81 mg by mouth in the morning. CARVEDILOL (COREG) 12.5 MG TABLET LISINOPRIL PO Take by mouth. METHADONE HCL PO Take by mouth. TICAGRELOR (BRILINTA PO) Take by mouth. ALLERGIES Nickel and Other FAMILY HISTORY Family History Problem Relation Name Age of Onset Atrial fibrillation Sister Hyperlipidemia Mother Obesity Mother Asthma Mother Depression Mother Obesity Sister Depression Sister Arthritis Mother High Blood Pressure Maternal Grandmother Diabetes Mother Asthma Maternal Grandmother Substance Abuse Sister Diabetes Father Stroke Paternal Grandfather Arthritis Sister High Blood Pressure Mother Vision loss Maternal Grandmother Diabetes Maternal Grandmother Stroke Maternal Grandmother Arthritis Maternal Grandfather Arthritis Maternal Grandmother Cancer Maternal Grandfather Depression Maternal Grandmother Cancer Brother Diabetes Paternal Grandfather Stroke Paternal Grandmother Diabetes Maternal Grandfather Obesity Maternal Grandmother Depression Maternal Grandfather Arthritis Paternal Grandmother Vision loss Maternal Grandfather Depression Paternal Grandmother Arthritis Paternal Grandfather SOCIAL HISTORY Social History Socioeconomic History Marital status: Single Tobacco Use Smoking status: Every Day Packs/day: 2.00 Types: Cigarettes Smokeless tobacco: Current Vaping Use Vaping Use: Never used Substance and Sexual Activity Alcohol use: Not Currently Drug use: Yes Types: Marijuana SCREENINGS PHYSICAL EXAM ED Triage Vitals Temp Pulse Resp BP -- -- -- -- SpO2 Temp src Heart Rate Source Patient Position -- -- -- -- BP Location FiO2 (%) -- -- Physical Exam Constitutional: General: He is not in acute distress. HENT: Head: Normocephalic. Eyes: Conjunctiva/sclera: Conjunctivae normal. Pulmonary: Effort: Pulmonary effort is normal. Musculoskeletal: General: No deformity. Comments: Tenderness to palpation of the left gluteal muscles, reproduction of paresthesias down the left lower extremity. Skin: General: Skin is warm and dry. Neurological: Gait: Gait is intact. Psychiatric: Mood and Affect: Mood normal. DIAGNOSTIC RESULTS RADIOLOGY (Per Emergency Physician): Interpretation per the Radiologist below, if available at the time of this note: XR hip left 2 or 3 views Final Result No acute osseous abnormality identified. Report Dictated on Electronically Signed By: Phillip Oshea Electronically Signed Date/Time: 04/24/2022 4:59 PM EST LABS: Labs Reviewed - No data to display All other labs were within normal range or not returned as of this dictation. EMERGENCY DEPARTMENT COURSE and DIFFERENTIAL DIAGNOSIS/MDM: Vitals: Vitals: 04/24/22 1534 BP: (!) 122/97 BP Location: Right arm Patient Position: Sitting Pulse: 82 Resp: 20 Temp: 36.6 C (97.9 F) TempSrc: Oral SpO2: 97% Weight: 90.7 kg (200 lb) Medications ketorolac (Toradol) injection 30 mg (30 mg IntraMUSCular Given 04/24/22 1557) acetaminophen (Tylenol) tablet 1,000 mg (1,000 mg Oral Given 04/24/22 1556) cyclobenzaprine (Flexeril) tablet 10 mg (10 mg Oral Given 04/24/22 1557) MDM The patient presented with chief complaint of left hip pain. The patient appears well, in no acute distress, vitals are stable.The patient has tenderness in the gluteal region with history of and reproduction of symptoms down the left lower extremity consistent with sciatica, possible piriformis syndrome.Given that the patient has history of multiple falls, x-ray was ordered for rule out fracture.The patient was given Toradol 30 mg IM and Tylenol 1 g p.o. The differential diagnosis associated with this patient's presentation includes but is not limited to sciatica, piriformis syndrome, muscle strain, left hip fracture. Our workup consisted of ordering/reviewing: Left hip plain films. To aid in management, I performed an independent interpretation of all laboratory tests, EKG, imaging, and other diagnostics ordered. Results reveal x-rays negative for acute fracture as interpreted by me. See radiologist note for further details. The patient was updated on the results, questions were answered. The patient is currently resting underway, vitals are stable. The patient will be discharged with close follow-up to PCP. They were instructed to return back to the emergency department if their symptoms change or worsen. The patient demonstrated general understanding and was agreeable with the medical plan. Rivka Toledo DO am the radiotelegrapher of record. PROCEDURES: Unless otherwise noted below, none Procedures FINAL IMPRESSION 1. Left hip pain DISPOSITION Discharge 04/24/2022 05:07:18 PM PATIENT REFERRED TO: Kay Kerr [address] [place] [id number] Schedule an appointment as soon as possible for a visit [facility] ED [address] [facility] [phone] If symptoms worsen DISCHARGE MEDICATIONS: New Prescriptions KETOROLAC (TORADOL) 10 MG TABLET Take 1 tablet (10 mg) by mouth every 6 hours as needed for moderate pain (4-6) for up to 5 days. LIDOCAINE (LIDODERM) 5 % PATCH Apply 1 patch topically daily. Remove & discard patch within 12 hours or as directed by MD. METHOCARBAMOL (ROBAXIN) 500 MG TABLET Take 2 tablets (1,000 mg) by mouth in the morning and 2 tablets (1,000 mg) at noon and 2 tablets (1,000 mg) before bedtime. Do all this for 10 days. (Comment: Please note this report has been produced using speech recognition software and may contain errors related to that system including errors in grammar, punctuation, and spelling, as well as words and phrases that may be inappropriate. If there are any questions or concerns please feel free to contact the dictating provider for clarification.) Kd Toledo DO (electronically signed) Emergency Medicine Provider Kd Toledo DO 04/24/22 1711 [facility] 09-26-2021 Note Attestation signed by Fransisco Cedillo MD at 09/27/2021 11:27 AM I, Dr. Cedillo, saw and evaluated the patient. I personally obtained the daniels and critical portions of the history and physical exam. I reviewed the chart and discussed the patient. I agree with the medical decision making and have edited the note to reflect my findings and my assessment and plan. Uncomplicated cardiac problem. To psych for Rx of drug and emotional issues [facility] CCU Discharge Summary Patient Name: El Smith : 1980 ADMIT: 09/23/2021 DISCHARGE: 09/26/2021 PCP: Teddy Sanford MD Visit Status: Admission Code Status: FULL CODE Chief Complaint: chest pain Hospital Course HPI : The patient is a 40 y.o. male with PMHx HTN, tobacco use - 2 PPD, anxiety, alcohol use, THC use and chronic back pain that was admitted to the hospital on 09/23/2021 10:45 PM for sudden onset chest pain. In the ED, initial troponin negative. Chest x-ray unremarkable. ?EKG with ST elevation in II, III?aVF. Received ASA 342mg PO once, heparin 5000 once and Brilinta 180mg once and emergently taken to dental laboratory technician. PCI intervention preformed by Dr. Chambers 09/24- successful with DORIS to proximal RCA. Transferred to CCU thereafter.?Patient started on GDMT with DAPT, statin, BB, and ACEi. WBC elevated on admission, patient clinically showing no signs of infection during admission. BCx grow coag negative staph, S. Epi, and S. Hominis. Infectious Disease consulted, given patient afebrile and leukocytosis resolved, BCx likely contaminant and antibiotics no recommended. ADM and Psych consulted for alcohol withdrawal and addiction management. Patient became increasingly anxious and combative throughout admission, requiring pink slip. Given patient is stable medically, decision made to transfer to [place] for further care. Patient transferred in stable condition. Procedures Performed: Cardiac Catheterization (Date: 09/[address] Chambers): Successful DORIS to proximal RCA. Echocardiogram (Type: Complete 2D W Doppler W Color, Date: 09/24): SUMMARY: ? 1. Left ventricle: There is mild concentric hypertrophy. Systolic function is at the lower limits of normal by visual assessment. The estimated ejection fraction is 50%. 2. Regional wall motion abnormality: Severe hypokinesis of the entire inferior myocardium. 3. Right ventricle: The cavity size is normal. Systolic function is normal. 4. No significant valve disease. Discharge Diagnoses: Copy your Assessment and Plan and Edit for DC needs Acute Inferior STEMI s/p DORIS to?proximal?RCA CAD Tobacco use HTN? - Diagnostic cath (09/23): RCA with 99% proximal lesion and non obstructive CAD in LAD, s/p DORIS to proximal RCA - ECHO (09/24) showing EF 50%, hypokinesis inferior myocardium - chest pain resolved, cardiac enzymes downtrending - continue ASA 81, Lipitor 80mg, Brilinta 90 BID, Lisinopril 5mg - nicotine patch - Lipid Panel: Chol 193, Tri 101, HDL 39, LDL 134 - HbA1c 5.3 ? Alcohol Abuse - last drink 09/23 prior to arrival - ADM consulted, appreciate recommendations - continue CIWA - continue phenobarb 64.8mg q4h, wean per ADM ? HAGMA, resolved Lactic Acidosis, resolved Leukocytosis, resolved - currently afebrile, no clinical signs of infection - likely due to STEMI - BHB negative - UDS postive for benzos, opiates, oxy - currently afebrile, has been afebrile throughout admission - UA negative for infection, resp panel negative, urine antigens negative - TTE (09/24) negative for valvular disease, low suspicion for endocarditis given TTE findings and clinical picture - BCx growing coag negative staph, S. Epi, S. Hominis - continue to monitor for signs of infection - ID consulted, rec no further antibiotics as BCx likely contaminant ? Thrombocytosis, resolved - iron studies normal - B12 normal ? Generalized anxiety disorder - patient reported he used to take Ambien - s/p versed and fentanyl in dental laboratory technician - Psych consulted, appreciate recommendations - continue Remeron 7.5mg qhs - evaluated for transfer to [place] Discharge Medications: Medication List START taking these medications aspirin 81 MG chewable tablet Take 1 tablet by mouth daily Start taking on: September 27, 2021 carvedilol 12.5 MG tablet Commonly known as: COREG Take 1 tablet by mouth 2 times daily (with meals) Start taking on: September 27, 2021 diclofenac sodium 1 % Gel Commonly known as: VOLTAREN Apply 2 g topically 4 times daily as needed for Pain dronabinol 2.5 MG capsule Commonly known as: MARINOL Take 1 capsule by mouth 2 times daily for 3 doses. haloperidol lactate 5 MG/ML injection Commonly known as: HALDOL Inject 1 mL into the muscle every 6 hours as needed for Agitation lidoca (more content not included)... [facility] 06-11-2022 History of Present illness Narrative ID weekend cross coverage note: Asked to review blood cultures. Blood cultures noted with staph hominis and staph epidermidis. Course discussed with primary team, patient remains afebrile, no leukocytosis. Blood cultures most likely represent contamination so will recommend to stop IV vancomycin. ID service will sign off, please call for any additional questions Kaelyn Martines MD 0910am - CCU fellow at bedside rounding, aware patient is refusing measurement and sensing technician, however patient is agreeable to PIV at this time. PIV inserted by RN, patient remains off telemetry. 11:30am - patient anxiety/restlessness increasing, ativan given at 10am per PRN orders as well as PRN haldol at 11:25am. CCU aware, resident at bedside. 12:20-12:45 pm - patient suddenly very agitated, cussing, yelling, attempting to leave unit, escorted back to room by HLU staff auditor and bedside sitter. Patient demanding to leave hospital AMA as he is not in skilled nursing and we cannot hold him here against his will. Patient does have medical hold (yellow slip) in chart. Protective services at bedside with two officers. Patient belongings in room closet collected by protective services and taken to security lockup - shirt, sweatpants, tennis shoes, cell phone, cell phone rag washer, soda can. 1636 pm - Report called to [facility] RN - no questions, comments, or concerns from accepting RN at this time. 17:48pm -Patient transferred by [facility] transport services. Protective services at bedside during transfer handoff. [facility] to return to security to retrieve patient belongings prior to departure. Addiction Team Consult PROGRESS NOTE September 26, 2021Tuesday Assessment to monitor w/drawal from alcohol in context of following issues: [facility] with stent placement 2 days ago; Chronic back pain due to disc disease Anxiety with depression (possible PTSD) Suicidal thoughts due to chronic pain General: Initially started on luminal po; Due to agitation and excessive amount of ativan w/out relief, placed on IV luminal. Last aditi, Dr Vieyra stopped IV and resumed PO 97.2 q 4. To this point, he's received a total of 1,027.6 phenobarbital. Notes from our psych team indicate keeping in hospital at this time due to family concern of suicidality. When seen, family visiting (mom, cousins); sitting on side of bed appearing in distress; quite miserable. Oriented to person, place, year; begging to go home, says that being here is making him anxious; says if he could go home for a little while, I promise I'll come back tomorrow. Limited insight into there seriousness of his situation and quite anxious/restless Withdrawal /Pain Assessment No overt signs of alcohol w/drawal other than the anxiety and restlessness; NO tremors, NO diaphoresis NO clamminess/lali's/sniffles/pupil dilatation evident of opiate w/drawal. Denying feelings of w/drawal, however this is in context of wanting to go home. Says back pain is always there& rates it as a 10 with minimal relief from oxy (has had 10mg x 4 in 24 hrs). Assessed by our pain management team who recommend continue PRN oxy along with lidocaine patches Addiction Issues Seems too distressed to discuss addiction; has said his alcohol consumption & resorting to obtaining PO opiate agents illicitly is due to severity of back pain. PHYSICAL EXAM Constitutional: Appearing distressed/uncomfortable Neuro: NO tremors; positive for restlessness/fidgeting; c/o pain Skin: dry/red/rough; tattoos covering arms/back Eyes: PEERLA; sclera/conjunctiva clear; NO icterus 5mm ORAL/Nasal Mucosa: No rhinnorrhea; No abnormality with dentation; NO lesions; moist Cardiac: Monitoring per ICU protocol: VS: P: 86 R 16 T 98.2 140/98 Respiratory: No audible wheezing; No cough; No effort indicating labored breathing Cognitions: coherent but lacks insight into situation Muscles/Skelatal: No gross abnormalities evident; c/o pain in back/leg PSYCHIATRIC/EMOTIONAL: anxious, mildly agitated, restless, depressed Plan going forward: Willl taper luminal dose/frequency Continue prn ativan as ordered Will add marinol bid for 4 doses to address possible marijuana w/drawal Will continue to follow and discuss issues ongoingly. Dina Ray DNP, APRN [facility] Pt allowing pulse ox and bp cuff, no heart monitor, team aware El Smith is a 40 y.o. male Chief Complaint Patient presents with Chest Pain Shortness of Breath I saw patient while wearing an N-95 surgical mask for the entire interview. I did not touch the patient, maintained 2 meters distance, and utilized hand quick technician on entry and upon exiting the room Patient remains delirious, and loved ones are worried about SI and about substance use if released prematurely. Patient cannot add pocket change wt this time, and is drifing off to sleep due to Rx for withdrawal. I completed a yellow slip and feel that medical decnision should be made by [facility] at this time. Current Facility-Administered Medications Medication Dose Route Frequency Provider Last Rate Last Admin vancomycin (VANCOCIN) 1500 mg in sodium chloride 0.9% 250 mL IVPB 1,500 mg IntraVENous Q12H Chapis Graham MD Stopped at 09/25/21 1427 PHENobarbital (LUMINAL) injection 100 mg 100 mg IntraVENous Q4H DARA Rasmussen CNP 100 mg at 09/25/21 1641 LORazepam (ATIVAN) injection 2 mg 2 mg IntraVENous Q6H PRN DARA Rasmussen CNP LORazepam (ATIVAN) injection 1 mg 1 mg IntraVENous Q6H PRN DARA Rasmussen CNP thiamine (B-1) injection 100 mg 100 mg IntraVENous Q8H ADRA Rasmussen CNP 100 mg at 09/25/21 1332 oxyCODONE-acetaminophen (PERCOCET) 5-325 MG per tablet 2 tablet 2 tablet Oral Q6H PRN Dina Ray APRN - SWITCHBOARD CLERK 2 tablet at 09/25/21 1429 enoxaparin (LOVENOX) injection 40 mg 40 mg SubCUTAneous Daily Brittany Rodriguez, DO 40 mg at 09/25/21 1556 haloperidol lactate (HALDOL) injection 5 mg 5 mg IntraMUSCular Q6H PRN Vicki Cochran MD acetaminophen (TYLENOL) tablet 650 mg 650 mg Oral Q4H PRN Loc Mckinney MD 650 mg at 09/25/21 1048 perflutren lipid microspheres (DEFINITY) injection 1.65 mg 1.5 mL IntraVENous ONCE PRN Loc Mckinney MD sodium chloride flush 0.9 % injection 5-40 mL 5-40 mL IntraVENous PRN Loc Mckinney MD aspirin chewable tablet 81 mg 81 mg Oral Daily Loc Mckinney MD 81 mg at 09/25/21 0930 ticagrelor (BRILINTA) tablet 90 mg 90 mg Oral BID Loc Mckinney MD 90 mg at 09/25/21 0930 nicotine (NICODERM CQ) 21 MG/24HR 1 patch 1 patch TransDERmal Daily Loc Mckinney MD 1 patch at 09/25/21 0934 carvedilol (COREG) tablet 12.5 mg 12.5 mg Oral BID Luis Harris MD 12.5 mg at 09/25/21 1638 sodium chloride flush 0.9 % injection 5-40 mL 5-40 mL IntraVENous 2 times per day Brittany Rodriguez, DO 10 mL at 09/25/21 1426 sodium chloride flush 0.9 % injection 5-40 mL 5-40 mL IntraVENous PRN Brittany Rodriguez, DO 0.9 % sodium chloride infusion IntraVENous PRN Brittany Arenasub, DO lidocaine 4 % external patch 1 patch 1 patch TransDERmal Daily Brittany Rodriguez, DO 1 patch at 09/25/21 0933 sodium chloride flush 0.9 % injection 5-40 mL 5-40 mL IntraVENous PRN Yevgeniy Green MD rosuvastatin (CRESTOR) tablet 40 mg 40 mg Oral Nightly Brittany Rodriguez, DO 40 mg at 09/24/212050 lisinopril (PRINIVIL;ZESTRIL) tablet 5 mg 5 mg Oral Daily Brittany DagobertoDO bret 5 mg at 09/25/21 0930 mirtazapine (REMERON) tablet 7.5 mg 7.5 mg Oral Nightly Tyree Betsy Barker MD 7.5 mg at 09/24/212050 sodium chloride flush 0.9 % injection 3 mL 3 mL IntraVENous Q8H Miquel Porter MD 3 mL at 09/25/21 06 sodium chloride flush 0.9 % injection 3 mL 3 mL IntraVENous Q8H Miquel Porter MD 3 mL at 09/25/21 06 No Known Allergies Vitals: 09/25/21 1400 09/25/21 1500 09/25/21 1600 09/25/21 1700 BP: 122/84 108/81 101/71 116/89 Pulse: 94 90 92 Resp: Temp: TempSrc: SpO2: 96% 94% 93% 100% Weight: Height: Social History Tobacco Use Smoking status: Current Every Day Smoker Packs/day: 2.00 Years: 20.00 Pack years: 40.00 Types: Cigarettes Smokeless tobacco: Current User Vaping Use Vaping Use: Never used Substance Use Topics Alcohol use: Yes Comment: 1000ml of fireball daily to kill the pain (chronic right leg pain) Drug use: Yes Types: Marijuana (Beauty) Comment: occasional use Recent Results (from the past 48 hour(s)) Basic Metabolic Panel Collection Time: 09/23/21 11:04 PM Result Value Ref Range Sodium 140 135 - 145 mmol/L Potassium 3.4 (L) 3.5 - 5.1 mmol/L Chloride 99 98 - 107 mmol/L CO2 23 22 - 30 mmol/L Anion Gap 18 (H) 3 - 13 mmol/L Glucose 156 (H) 70 - 100 mg/dL BUN 12 7 - 17 mg/dL CREATININE 0.81 0.52 - 1.25 mg/dL eGFR >90.0 >60 mL/min EGFR IF NonAfrican [place]an >90.0 >60 mL/min Calcium 9.5 8.4 - 10.4 mg/dL CBC with Auto Differential Collection Time: 09/23/21 11:04 PM Result Value Ref Range WBC 21.1 (H) 3.6 - 10.7 10*3/uL RBC 6.03 (H) 4.40 - 5.90 10*6/uL Hemoglobin 16.0 13.0 - 18.0 g/dL Hematocrit 47.1 40.0 - 52.0 % MCV 78.1 (L) 80.0 - 98.0 fL MCH 26.5 26.0 - 34.0 pg MCHC 34.0 32.0 - 36.0 % RDW 19.1 (H) 11.5 - 14.5 % Platelets 639 (H) 140 - 440 10*3/uL MPV 8.5 7.4 - 12.4 fL Granulocytes % 85.7 (H) 40.0 - 80.0 % Lymphocyte % 7.2 (L) 20.0 - 40.0 % Monocytes 5.8 2.0 - 10.0 % Eosinophils 0.0 (L) 1.0 - 6.0 % Basophils 0.8 0.0 - 2.0 % Absolute Neut # 18.1 (H) 1.8 - 7.0 10*3/uL Absolute Lymph # 1.5 1.0 - 4.3 10*3/uL Absolute [place] # 1.2 (H) 0.0 - 0.8 10*3/uL Absolute Eos # 0.0 0.0 - 0.5 10*3/uL Absolute Baso # 0.2 0.0 - 0.2 10*3/uL Lipase Collection Time: 09/23/21 11:04 PM Result Value Ref Range Lipase 46 23 - 300 U/L Ethanol Collection Time: 09/23/21 11:04 PM Result Value Ref Range Ethanol Lvl <0.010 0.000 - 0.010 g/dL Troponin x1 Collection Time: 09/23/21 11:04 PM Result Value Ref Range Troponin I <0.012 0.000 - 0.034 ng/mL Add On Lab Test Collection Time: 09/23/21 11:52 PM Result Value Ref Range Add On Accepted NA Add On Lab Test Collection Time: 09/23/21 11:52 PM Result Value Ref Range Add On Accepted NA CBC with Auto Differential Collection Time: 09/24/21 12:59 AM Result Value Ref Range WBC 19.3 (H) 3.6 - 10.7 10*3/uL RBC 5.56 4.40 - 5.90 10*6/uL Hemoglobin 14.6 13.0 - 18.0 g/dL Hematocrit 44.5 40.0 - 52.0 % MCV 80.0 80.0 - 98.0 fL MCH 26.2 26.0 - 34.0 pg MCHC 32.7 32.0 - 36.0 % RDW 19.7 (H) 11.5 - 14.5 % Platelets 546 (H) 140 - 440 10*3/uL MPV 7.1 (L) 7.4 - 12.4 fL Granulocytes % 88.2 (H) 40.0 - 80.0 % Lymphocyte % 6.2 (L) 20.0 - 40.0 % Monocytes 4.8 2.0 - 10.0 % Eosinophils 0.0 (L) 1.0 - 6.0 % Basophils 0.8 0.0 - 2.0 % Absolute Neut # 17.0 (H) 1.8 - 7.0 10*3/uL Absolute Lymph # 1.2 1.0 - 4.3 10*3/uL Absolute [place] # 0.9 (H) 0.0 - 0.8 10*3/uL Absolute Eos # 0.0 0.0 - 0.5 10*3/uL Absolute Baso # 0.1 0.0 - 0.2 10*3/uL Basic Metabolic Panel Collection Time: 09/24/21 12:59 AM Result Value Ref Range Sodium 136 135 - 145 mmol/L Potassium 4.0 3.5 - 5.1 mmol/L Chloride 99 98 - 107 mmol/L CO2 21 (L) 22 - 30 mmol/L Anion Gap 16 (H) 3 - 13 mmol/L Glucose 151 (H) 70 - 100 mg/dL BUN 12 7 - 17 mg/dL CREATININE 0.76 0.52 - 1.25 mg/dL eGFR >90.0 >60 mL/min EGFR IF NonAfrican [place]an >90.0 >60 mL/min Calcium 9.1 8.4 - 10.4 mg/dL Magnesium Collection Time: 09/24/21 12:59 AM Result Value Ref Range Magnesium 1.1 (L) 1.6 - 2.3 mg/dL Hepatic Function Panel Collection Time: 09/24/21 12:59 AM Result Value Ref Range Albumin,Serum 4.3 3.5 - 5.0 g/dL Total Protein 7.0 6.3 - 8.2 g/dL Total Bilirubin 1.1 0.2 - 1.3 mg/dL Bilirubin, Direct 0.0 0.0 - 0.3 mg/dL Alkaline Phosphatase 131 (H) 38 - 126 U/L ALT 39 0 - 49 U/L AST 59 (H) 15 - 46 U/L Lactic Acid Collection Time: 09/24/21 12:59 AM Result Value Ref Range Lactic Acid 5.3 (HH) 0.7 - 2.0 mmol/L Iron and TIBC Collection Time: 09/24/21 12:59 AM Result Value Ref Range Iron 94 49 - 181 ug/dL TIBC 491 261 - 497 ug/dL Sat 19 15 - 50 % Beta-Hydroxybutyrate Collection Time: 09/24/21 12:59 AM Result Value Ref Range Beta-Hydroxybutyrate 0.74 0.20 - 2.81 mg/dL Troponin Collection Time: 09/24/21 12:59 AM Result Value Ref Range Troponin I 0.459 (H) 0.000 - 0.034 ng/mL Vitamin B12 Collection Time: 09/24/21 12:59 AM Result Value Ref Range Vitamin B-12 307 239 - 931 pg/mL CK with Reflex CK-MB Collection Time: 09/24/21 12:59 AM Result Value Ref Range Total CK 108 30 - 170 U/L Ferritin Collection Time: 09/24/21 12:59 AM Result Value Ref Range Ferritin 13 (L) 18 - 464 ng/mL Lipid Panel Collection Time: 09/24/21 12:59 AM Result Value Ref Range Cholesterol 193 <200 mg/dL Triglycerides 101 <150 mg/dL HDL 39 (L) 40 - 60 mg/dL LDL Cholesterol 134 (A) <100 mg/dL Chol/HDL Ratio 5 NA Hemoglobin A1C Collection Time: 09/24/21 12:59 AM Result Value Ref Range Hemoglobin A1C 5.3 % eAG 105 mg/dL CK-MB Index Collection Time: 09/24/21 12:59 AM Result Value Ref Range CK-MB Index 6.8 (H) 0.0 - 3.0 NA CK-MB 7.3 (H) 0.0 - 2.4 ng/mL Culture, Blood Collection Time: 09/24/21 2:24 AM Specimen: Blood Right AC Result Value Ref Range Blood Culture, Routine (A) Coagulase negative Staphylococcus species DETECTED. Presumptive identification performed using Xpliant PCR methodology; confirmatory identification to follow. _ The [employer] BCID2 PCR Panel can detect the following targets: E. faecalis, E. faecium, Staphylococcus spp., S. aureus, S. epidermidis, S. lugdunensis, Streptococcus spp., S. pyogenes (Group A), S. agalactiae (Group B), S. pneumoniae, A. baumannii complex, B. fragilis, H. influenzae, N. meningitidis (encapsulated), P. aeruginosa, S. maltophilia, Enterobacterales, E. cloacae complex, E. coli, K. aerogenes, K. oxytoca, K. pneumoniae, Proteus spp., Salmonella spp., S. marcescens, C. albicans, C. auris, C. glabrata, C. krusei, C. parapsilosis, C. tropicalis, C. neoformans/gattii, and antimicrobial resistance genes: mecA/C, Shivam/B, CTX-M, IMP, KPC, NDM, OXA-48-like, VIM, and mcr-1. Blood Culture, Routine Gram positive cocci in clusters (A) Blood Culture, Routine Isolated: Culture, Blood 2 Collection Time: 09/24/21 2:24 AM Specimen: Blood Left AC Result Value Ref Range Blood Culture, Routine Gram positive cocci in clusters (A) Blood Culture, Routine Isolated: Urinalysis Collection Time: 09/24/21 2:27 AM Result Value Ref Range Glucose, Ur Normal Normal (<70) mg/dL Total Protein, Urine 100 (A) Negative mg/dL Bilirubin Urine Negative Negative mg/dL Urobilinogen, Urine Normal Normal (0-1) mg/dL pH, Urine 6.5 5.0 - 8.0 NA Specific [place], Urine >1.030 (A) 1.005 - 1.030 NA Occult Blood,Urine 0.03 (A) Negative mg/dL Ketones, Urine Trace (A) Negative mg/dL Nitrite, Urine Negative Negative NA LEUKOCYTES, UA Negative Negative Soren/uL Appearance Clear Clear NA Color, Urine Yellow Lt. Yellow NA RBC, UA 0-2 0 - 2 /[HPF] WBC, UA Negative 0 - 5 /[HPF] Squam Epithel, UA 0-2 3 - 5 /[HPF] Bacteria, UA Negative Negative /[HPF] Mucous Threads Few Negative /[LPF] Hyaline Casts, UA Negative Negative /[LPF] Urine Drug Screen Collection Time: 09/24/21 2:27 AM Result Value Ref Range Amphetamines, urine Negative NA Barbiturates, Urine Negative NA Benzodiazepine Ur Qual Positive NA Cocaine Metabolites, Ur Negative NA Methadone, Urine Negative NA Opiates, Urine Positive NA Oxycodone Screen, Ur Positive NA PCP, Urine Negative NA Respiratory Panel, Molecular, with COVID-19 (Restricted: peds pts or suitable admitted adults) Collection Time: 09/24/21 2:27 AM Specimen: Nasopharyngeal Right nare Result Value Ref Range Respiratory Panel Molecular, with COVID NEGATIVE: No targets were detected by the [employer] Upper Respiratory Pathogens PCR Panel. _ Expected Result: Not Detected The [employer] Upper Respiratory Pathogens PCR Panel can detect the following targets: SARS-CoV-2, Adenovirus, Coronavirus 229E, Coronavirus HKU1, Coronavirus NL63, Coronavirus OC43, Human Metapneumovirus, Human Rhinovirus/Enterovirus, Influenza A, Influenza B, Parainfluenza Virus 1, Parainfluenza Virus 2, Parainfluenza Virus 3, Parainfluenza Virus 4, Respiratory Syncytial Virus, Bordetella pertussis, Bordetella parapertussis, Chlamydia pneumoniae, Mycoplasma pneumoniae. Method: Real-time PCR. Legionella Antigen, Urine Collection Time: 09/24/21 2:27 AM Specimen: Urine Urethra Result Value Ref Range LEGIONELLA ANTIGEN NOT DETECTED STREP PNEUMONIAE ANTIGEN Collection Time: 09/24/21 2:27 AM Specimen: Urine Urethra Result Value Ref Range STREP PNEUMONIAE ANTIGEN, URINE NOT DETECTED Troponin Collection Time: 09/24/21 6:19 AM Result Value Ref Range Troponin I 11.000 (H) 0.000 - 0.034 ng/mL Lactic Acid Collection Time: 09/24/21 6:19 AM Result Value Ref Range Lactic Acid 3.3 (HH) 0.7 - 2.0 mmol/L Osmolality Collection Time: 09/24/21 6:19 AM Result Value Ref Range Serum Osmolality 285 280 - 300 mosm/kg VOLATILE PANEL, SERUM Collection Time: 09/24/21 6:19 AM Result Value Ref Range METHANOL NONE DETECTED NA Isopropanol NONE DETECTED mg/dL Acetone, Serum Quant NONE DETECTED 0.0 - 20.0 mg/dL Ethanol NONE DETECTED Lactic Acid Collection Time: 09/24/21 10:34 AM Result Value Ref Range Lactic Acid 2.4 (HH) 0.7 - 2.0 mmol/L Basic Metabolic Panel Collection Time: 09/24/21 11:51 AM Result Value Ref Range Sodium 134 (L) 135 - 145 mmol/L Potassium 3.7 3.5 - 5.1 mmol/L Chloride 101 98 - 107 mmol/L CO2 28 22 - 30 mmol/L Anion Gap 5 3 - 13 mmol/L Glucose 126 (H) 70 - 100 mg/dL BUN 18 (H) 7 - 17 mg/dL CREATININE 0.67 0.52 - 1.25 mg/dL eGFR >90.0 >60 mL/min EGFR IF NonAfrican Venezuelan >90.0 >60 mL/min Calcium 8.6 8.4 - 10.4 mg/dL Troponin Collection Time: 09/24/21 11:51 AM Result Value Ref Range Troponin I 11.400 (H) 0.000 - 0.034 ng/mL Lactic Acid Collection Time: 09/24/21 2:37 PM Result Value Ref Range Lactic Acid 2.6 (HH) 0.7 - 2.0 mmol/L Lactic Acid Collection Time: 09/24/21 6:15 PM Result Value Ref Range Lactic Acid 1.3 0.7 - 2.0 mmol/L Troponin Collection Time: 09/24/21 6:15 PM Result Value Ref Range Troponin I 9.570 (H) 0.000 - 0.034 ng/mL CBC with Auto Differential Collection Time: 09/25/21 12:34 AM Result Value Ref Range WBC 11.2 (H) 3.6 - 10.7 10*3/uL RBC 5.13 4.40 - 5.90 10*6/uL Hemoglobin 13.4 13.0 - 18.0 g/dL Hematocrit 40.4 40.0 - 52.0 % MCV 78.7 (L) 80.0 - 98.0 fL MCH 26.2 26.0 - 34.0 pg MCHC 33.3 32.0 - 36.0 % RDW 19.1 (H) 11.5 - 14.5 % Platelets 430 140 - 440 10*3/uL MPV 7.1 (L) 7.4 - 12.4 fL Granulocytes % 68.4 40.0 - 80.0 % Lymphocyte % 21.3 20.0 - 40.0 % Monocytes 8.9 2.0 - 10.0 % Eosinophils 0.2 (L) 1.0 - 6.0 % Basophils 1.2 0.0 - 2.0 % Absolute Neut # 7.6 (H) 1.8 - 7.0 10*3/uL Absolute Lymph # 2.4 1.0 - 4.3 10*3/uL Absolute [place] # 1.0 (H) 0.0 - 0.8 10*3/uL Absolute Eos # 0.0 0.0 - 0.5 10*3/uL Absolute Baso # 0.1 0.0 - 0.2 10*3/uL Basic Metabolic Panel Collection Time: 09/25/21 12:34 AM Result Value Ref Range Sodium 134 (L) 135 - 145 mmol/L Potassium 3.4 (L) 3.5 - 5.1 mmol/L Chloride 102 98 - 107 mmol/L CO2 26 22 - 30 mmol/L Anion Gap 6 3 - 13 mmol/L Glucose 109 (H) 70 - 100 mg/dL BUN 25 (H) 7 - 17 mg/dL CREATININE 0.72 0.52 - 1.25 mg/dL eGFR >90.0 >60 mL/min EGFR IF NonAfrican [place]an >90.0 >60 mL/min Calcium 8.6 8.4 - 10.4 mg/dL Magnesium Collection Time: 09/25/21 12:34 AM Result Value Ref Range Magnesium 2.2 1.6 - 2.3 mg/dL Troponin Collection Time: 09/25/21 12:34 AM Result Value Ref Range Troponin I 8.740 (H) 0.000 - 0.034 ng/mL Procalcitonin Collection Time: 09/25/21 12:34 AM Result Value Ref Range Procalcitonin 0.07 0.00 - 0.09 ng/mL Interpretation See Below NA Assessment delirium substance use disorder Depression Plan Medications as ordered. Please contact psychiatry cotton program technician to review 09/26 and 09/27, I am away until 09/28 AM. Images from the original note were not included. ICU TRANSFER CHECKLIST Transfer Med Reconciliation (resume home meds if able, convert to PO if able) Complete Antibiotics (name, indication, duration, convert to PO if able) Yes,Vancomycin. Please see ID's consult note for further information. Steroid (indication, duration, convert to PO if able) None Anticipated [place] Medications (ICU initiated) or Dose Changes and Indication Yes, indication GDMT Permanently Discontinued Home Medications and Reason for medication contraindication No Conrad Catheter (please remove if able) No Central Line (please remove if able) No Transfer Discussed with: Dr. Macdonald, [facility] [place] [place] Hospitalist If additional questions for CCU team within 24 hours of ICU transfer, page [phone] for clarifications. Nutrition rescreen completed. Chart reviewed. Patient to be monitored and followed by the diet apprentice instrument technician. [facility] [place] Addiction Team Consult PROGRESS NOTE September 25, 2021Tuesday Assessment to monitor w/drawal from alcohol complicated by [facility] with stent placement(september 24) & chronic pain due to disc disease General: When seen, drowsy but quite restless/agitated; moving around in bed; seemingly in discomfort Mom at bedside Sitter Present Mom reports that he was seen several weeks ago at the [facility]; that he was advised about recurrence of bulging disc; said he did not want to go thru surgery again and began binge drinking because of the pain. She states that he resorts to getting percocet or vicodin illicitly, that the [facility]'s pain management team has not been helpful. When not able to get oral opiates, he resorts to drinking. Withdrawal Assessment Restless, fidgeting, NO tremors; NO clamminess but overall seems quite uncomfortable CIWA scores: 4-21-22 He may be w/drawing from opiates which will attenuate the back pain Will increase phenobarbital to assist with etoh w/d & change to IV He's received approximately 50mg ativan in 36 hrs which can contribute to further agitation and possibly delerium. Will decrease prn ativan available and hope the phenobarbital will help the agitation. Will add prn oxycodone for pain/withdrawal and ask our pain management team to assess Per attending RN, his anxiety is profound Addiction Issues Will discuss as he progresses and pain is managed. PHYSICAL EXAM Constitutional: Appearing somnolent, drowsy, restless, fidgeting, uncomfortable Neuro: Restless but w/out overt tremor Skin: dry/rough; no evidence of lesions Eyes: closed ORAL/Nasal Mucosa: No rhinnorrhea audible Cardiac: Pulses range between 85-91 Respiratory: No audible wheezing; Increased respirs: 22; Not on O2 SpO2: 90 % r/a Cognitions: somnolent Plan going forward: He may be w/drawing from opiates which will attenuate the back pain Will increase phenobarbital to assist with etoh w/d & change to IV: 100mg q 4 (Hold if asleep/overly sedated) He's received approximately 50mg ativan in 36 hrs which can contribute to further agitation and possibly delerium. Will decrease prn ativan available and hope the phenobarbital will help the agitation. Will add prn oxycodone for pain/withdrawal and ask our pain management team to assess Recommend that our otho team be consulted to assess status of disc disease & communicate with V.A providers Dina Ray DNP, APRN [facility] Pt agitated intermittently, refuses to wear heart monitor, ccu team aware [facility] CCU PROGRESS NOTE Patient Name: El Smith : 1980 Reason for Admission: STEMI History of Present Illness: lE Smith is a 40 y.o. male with PMHx HTN, tobacco use - 2 PPD, anxiety, alcohol use, THC use and chronic back pain that was admitted to [facility] on 09/23/2021 for sudden onset chest pain. In the ED, initial troponin negative. Chest x-ray unremarkable. EKG with ST elevation in II, III aVF. Received ASA 342mg PO once, heparin 5000 once and Brilinta 180mg once and emergently taken to dental laboratory technician. PCI intervention preformed by Dr. Chambers 09/24- successful with DORIS to proximal RCA. Transferred to CCU thereafter. Patient started on GDMT with DAPT, statin, BB, and ACEi. WBC elevated on admission, infectious workup negative. ADM and Psych consulted for alcohol withdrawal and addiction management. Overnight, patient became increasingly more agitated requiring increased doses Ativan. Sitter ordered. On exam this morning, patient sleeping comfortably in bed. Arouses with hands on care. Unable to answer many questions this morning, states he feels like crap. Denies specific chest pain, palpitations, or SOB. Review of Systems Constitutional: Positive for fatigue. Negative for chills, diaphoresis and fever. Respiratory: Negative for cough and shortness of breath. Cardiovascular: Negative for chest pain, palpitations and leg swelling. Gastrointestinal: Positive for nausea. Negative for abdominal pain, constipation, diarrhea and vomiting. Genitourinary: Negative for dysuria and hematuria. Neurological: Positive for tremors and headaches. Negative for dizziness, weakness, light-headedness and numbness. Psychiatric/Behavioral: Positive for agitation. The patient is nervous/anxious. Past Medical History: Diagnosis Date Alcohol abuse Anxiety Chronic leg pain Degenerative disc disease, lumbar Depression Hypertension Sciatica Spinal stenosis, lumbar Tobacco abuse Past Surgical History: Procedure Laterality Date ARM SURGERY metal rods in adam upper extremities COLONOSCOPY FRACTURE SURGERY Family History Problem Relation Age of Onset Arthritis Mother Asthma Mother Diabetes Mother High Blood Pressure Mother High Cholesterol Mother Obesity Mother Depression Mother Diabetes Father Arthritis Sister Atrial Fibrillation Sister Depression Sister Obesity Sister Substance Abuse Sister Cancer Brother Arthritis Maternal Grandmother Asthma Maternal Grandmother Depression Maternal Grandmother Diabetes Maternal Grandmother High Blood Pressure Maternal Grandmother Obesity Maternal Grandmother Stroke Maternal Grandmother Vision Loss Maternal Grandmother Arthritis Maternal Grandfather Cancer Maternal Grandfather Depression Maternal Grandfather Diabetes Maternal Grandfather Vision Loss Maternal Grandfather Arthritis Paternal Grandmother Depression Paternal Grandmother Stroke Paternal Grandmother Arthritis Paternal Grandfather Diabetes Paternal Grandfather Stroke Paternal Grandfather Social History Socioeconomic History Marital status: Single Spouse name: Not on file Number of children: Not on file Years of education: Not on file Highest education level: Not on file Occupational History Not on file Tobacco Use Smoking status: Current Every Day Smoker Packs/day: 2.00 Years: 20.00 Pack years: 40.00 Types: Cigarettes Smokeless tobacco: Current User Vaping Use Vaping Use: Never used Substance and Sexual Activity Alcohol use: Yes Comment: 1000ml of fireball daily to kill the pain (chronic right leg pain) Drug use: Yes Types: Marijuana (Beauty) Comment: occasional use Sexual activity: Not Currently Other Topics Concern Not on file Social History Narrative Not on file Social Determinants of Health Financial Resource Strain: Difficulty of Paying Living Expenses: Not on file Food Insecurity: Worried About Running Out of Food in the Last Year: Not on file Ran Out of Food in the Last Year: Not on file Transportation Needs: Lack of Transportation (Medical): Not on file Lack of Transportation (Non-Medical): Not on file Physical Activity: Days of Exercise per Week: Not on file Minutes of Exercise per Session: Not on file Stress: Feeling of Stress : Not on file Social Connections: Frequency of Communication with Friends and Family: Not on file Frequency of Social Gatherings with Friends and Family: Not on file Attends Confucianist Services: Not on file Active Member of Clubs or Organizations: Not on file Attends Club or Organization Meetings: Not on file Marital Status: Not on file Intimate Partner Violence: Fear of Current or Ex-Partner: Not on file Emotionally Abused: Not on file Physically Abused: Not on file Sexually Abused: Not on file Housing Stability: Unable to Pay for Housing in the Last Year: Not on file Number of Places Lived in the Last Year: Not on file Unstable Housing in the Last Year: Not on file No Known Allergies aspirin 81 mg Oral Daily ticagrelor 90 mg Oral BID nicotine 1 patch TransDERmal Daily carvedilol 12.5 mg Oral BID WC sodium chloride flush 5-40 mL IntraVENous 2 times per day lidocaine 1 patch TransDERmal Daily rosuvastatin 40 mg Oral Nightly lisinopril 5 mg Oral Daily mirtazapine 7.5 mg Oral Nightly PHENobarbital 97.2 mg Oral Q4H thiamine 100 mg Oral TID sodium chloride flush 3 mL IntraVENous Q8H sodium chloride flush 3 mL IntraVENous Q8H Physical Exam: BP 119/81 Pulse 86 Temp 98.7 F (37.1 C) (Oral) Resp 22 Ht 5' 10 (1.778 m) Wt 205 lb 0.4 oz (93 kg) SpO2 93% BMI 29.42 kg/m Patient Vitals for the past 96 hrs (Last 3 readings): Weight 09/25/21 0330 205 lb 0.4 oz (93 kg) 09/24/21 0245 202 lb 9.6 oz (91.9 kg) 09/23/21 2255 213 lb (96.6 kg) Physical Exam Vitals and nursing note reviewed. Constitutional: General: He is not in acute distress. Appearance: He is not ill-appearing. HENT: Nose: Nose normal. Mouth/Throat: Mouth: Mucous membranes are moist. Pharynx: Oropharynx is clear. Eyes: General: No scleral icterus. Conjunctiva/sclera: Conjunctivae normal. Cardiovascular: Rate and Rhythm: Normal rate and regular rhythm. Pulses: Normal pulses. Heart sounds: Normal heart sounds. No murmur heard. No friction rub. No gallop. Pulmonary: Effort: Pulmonary effort is normal. No respiratory distress. Breath sounds: Normal breath sounds. No wheezing, rhonchi or rales. Abdominal: General: Bowel sounds are normal. There is no distension. Palpations: Abdomen is soft. There is no mass. Tenderness: There is no abdominal tenderness. Hernia: No hernia is present. Musculoskeletal: General: Normal range of motion. Right lower leg: No edema. Left lower leg: No edema. Skin: General: Skin is warm and dry. Capillary Refill: Capillary refill takes less than 2 seconds. Neurological: General: No focal deficit present. Mental Status: He is oriented to person, place, and time. Cranial Nerves: No cranial nerve deficit. Psychiatric: Behavior: Behavior is agitated. Pertinent Labs: BMP: Recent Labs 09/25/2133 NA 134* K 3.4* CL 102 CO2 26 BUN 25* CREATININE 0.72 GLUCOSE 109* CBC: Recent Labs 09/25/2133 WBC 11.2* HGB 13.4 PLT 430 ABGs: No results found for: PHART, PO2ART, LOI3SNH INR: No results for input(s): INR in the last 72 hours. TSH: Lab Results Component Value Date TSH 0.761 11/23/2017 PRO-BNP: No results for input(s): BNP in the last 72 hours. Cardiac Injury Profile: Recent Labs 09/24/21 0059 09/24/21 0619 09/24/21 1815 09/25/21 0034 CKTOTAL 108 -- -- -- CKMB 7.3* -- -- -- CKMBINDEX 6.8* -- -- -- TROPONINI 0.459* < > 9.570* 8.740* < > = values in this interval not displayed. Lipid Profile: Lab Results Component Value Date TRIG 101 09/24/2021 HDL 39 09/24/2021 CHOL 193 09/24/2021 Hemoglobin A1C: No components found for: HGBA1C Chest Imaging: CXR (09/23): IMPRESSION: No acute pulmonary disease. No other studies available at this time. Cardiac Studies: EKG: Interpretive Statements Sinus rhythm Minimal ST elevation, inferior leads Telemetry Review (09/25): NSR ECHO: SUMMARY: 1. Left ventricle: There is mild concentric hypertrophy. Systolic function is at the lower limits of normal by visual assessment. The estimated ejection fraction is 50%. 2. Regional wall motion abnormality: Severe hypokinesis of the entire inferior myocardium. 3. Right ventricle: The cavity size is normal. Systolic function is normal. 4. No significant valve disease. Cardiac Cath (09/23) Successful DORIS to proximal RCA. No other studies available at this time. Active Problems: Acute myocardial infarction (HCC) Resolved Problems: * No resolved hospital problems. * ASSESSMENT / PLAN: Acute Inferior STEMI s/p DORIS to proximal RCA CAD Tobacco use HTN - Diagnostic cath (09/23): RCA with 99% proximal lesion and non obstructive CAD in LAD, s/p DORIS to proximal RCA - ECHO (09/24) showing EF 50%, hypokinesis inferior myocardium - chest pain resolved, cardiac enzymes downtrending - EKG (09/25) with NSR, minimal ST elevation inferior leads, unchanged from yesterday - continue ASA 81, Lipitor 80mg, Brilinta 90 BID, Lisinopril 5mg - nicotine patch - Lipid Panel: Chol 193, Tri 101, HDL 39, LDL 134 - HbA1c 5.3 Alcohol Abuse - last drink 09/23 prior to arrival - ADM consulted, appreciate recommendations - continue CIWA - continue phenobarb 97.2mg q4h HAGMA, resolved Lactic Acidosis, resolved Leukocytosis, resolved - WBC 19.3 on admission, 11.2 today - LA 5.3 on admission - likely due to STEMI - BHB negative - UDS postive for benzos, opiates, oxy - currently afebrile, has been afebrile throughout admission - UA negative for infection, resp panel negative, urine antigens negative - TTE (09/24) negative for valvular disease, low suspicion for endocarditis given TTE findings and clinical picture - BCx growing coag negative staph, likely contaminant - continue to monitor for signs of infection - will consult ID for any additional recommendations Thrombocytosis, resolved - iron studies normal - B12 normal Generalized anxiety disorder - patient reported he used to take Ambien - s/p versed and fentanyl in dental laboratory technician - Psych consulted, appreciate recommendations - started Remeron 7.5mg qhs - Goals of Care: FULL CODE - Anticoagulation: SCDs Ambulate - GI Prophylaxis: Not Indicated - Diet: Cardiac - BMI Classification: Body mass index is 29.42 kg/m . Overweight (BMI 25-29.9) - Disposition: Anticipate transfer to [place] in next 24h pending consult recommendations Associated attestation - Fransisco Cedillo MD - 09/25/2021 12:22 PM EDT I, Dr. Cedillo, saw and evaluated the patient. I personally obtained the daniels and critical portions of the history and physical exam. I reviewed the chart and discussed the patient. I agree with the medical decision making and have edited the note to reflect my findings and my assessment and plan. Uncomplicated [facility]. Complicated patient with psych and drug abuse issues. Positive blood cultures likely contaminated specimen since no signs or Sx of infection OK to transfer for detox D/W CCU team Pt appears increasingly agitated with CIWA score greater than 20, despite Ativan and Phenobarbital. Bed alarm, seizure precautions, and fall kit currently implemented. Pt becoming more verbally aggressive and repeatedly attempts to get our of bed. Pt is pulling wires and pulled out his IV. Dr. Mckinney notified of increased CIWA scores and concern for safety of pt. Home Health Care Worker at bedside. New CIWA order parameters placed. [facility] [place] Cardiac Catheterization Laboratory Post-Procedure Note Patient Name: El Smith Date: 09/24/2021, 12:01 AM Pre-Operative Diagnosis: Acute Inferior STEMI Post-Operative Diagnosis: Acute Inferior STEMI, CAD Procedure: LHC/Coronary Angiogram with PCI Findings: RCA with 90% proximal lesion s/p DORIS placement. Mild non-obstructive CAD in the LAD. Aortogram normal without dissection. Complications: None Plan: Admit to CCU. ASA, Brilinta 80mg BID, Atorvastatin 80mg nightly. Aggressive risk factor modification and tobacco cessation. Cardiac Rehab. Physician Signature: Loc Mckinney MD [place]erry Pilot -PGY IV documented in this encounter [facility] [place] Phone: 09-26-2021 Hospital Discharge instructions Prerna Contreras RN - 09/26/2021 3:06 PM EDT Continuity of Care Form Patient Name: El Smith : 1980 Admit date: 09/23/2021 Discharge date: Code Status Order: Full Code Advance Directives: Admitting Physician: Fransisco Cedillo MD PCP: Teddy Sanford MD Discharging Nurse: Discharging Hospital Unit/Room#: [id number] Discharging Unit Phone Number: Emergency Contact: Extended Emergency Contact Information Primary Emergency Contact: Chhaya Maurer [facility] Relation: Parent Past Surgical History: Past Surgical History: Procedure Laterality Date ARM SURGERY metal rods in adam upper extremities COLONOSCOPY FRACTURE SURGERY Immunization History: Immunization History Administered Date(s) Administered Anthrax (BioThrax) 10/27/2007 Hepatitis A/Hepatitis B (Twinrix) 03/15/2007 Influenza Virus Vaccine 03/14/2007, 02/07/2008, 02/17/2008 Pashto Encephalitis Vaccine Sq 05/11/2007 Meningococcal MCV4P (Menactra) 08/18/2006 Polio IPV (IPOL) 09/15/2006 Tdap (Boostrix, Adacel) 09/19/2018 Typhoid Vi capsular polysaccharide (Typhim ) 03/15/2007 Vaccinia - Smallpox ([id number]) 03/21/2007 Yellow Fever (YF-Vax) 09/15/2006 Active Problems: Patient Active Problem List Diagnosis Code Current moderate episode of major depressive disorder without prior episode (HCC) F32.1 Degenerative disc disease, lumbar M51.36 Spinal stenosis, lumbar M48.061 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 Strain of right shoulder S46.911A Right leg pain M79.604 Back pain with sciatica M54.9, M54.30 Alcohol use Z72.89 Nondependent cannabis abuse F12.10 Discogenic syndrome, lumbar M51.26 Gastroenteritis K52.9 Nicotine dependence F17.200 PUD (peptic ulcer disease) K27.9 Generalized anxiety disorder F41.1 Acute myocardial infarction (HCC) I21.9 Leukocytosis D72.829 Coagulase negative Staphylococcus bacteremia R78.81, B95.7 Isolation/Infection: Isolation No Isolation Patient Infection Status Infection Onset Added Last Indicated Last Indicated By Review Planned Expiration Resolved Resolved By None active Resolved COVID-19 (Rule Out) 09/24/21 09/24/21 09/24/21 Respiratory Panel, Molecular, with COVID-19 (Restricted: peds pts or suitable admitted adults) (Ordered) 09/24/21 Rule-Out Test Resulted COVID-19 (Rule Out) 07/03/20 07/03/20 07/03/20 COVID-19, Rapid (Ordered) 07/03/20 Rule-Out Test Resulted Nurse Assessment: Last Vital Signs: BP (!) 140/98 Pulse 86 Temp 98.2 F (36.8 C) (Oral) Resp 16 Ht 5' 10 (1.778 m) Wt 208 lb 12.4 oz (94.7 kg) SpO2 98% BMI 29.96 kg/m Last documented pain score (0-10 scale): Pain Level: 8 Last Weight: Wt Readings from Last 1 Encounters: 09/26/21 208 lb 12.4 oz (94.7 kg) Mental Status: disoriented, alert, and able to concentrate and follow conversation -- disoriented to situation, oriented to person, place, month, year IV Access: - None Nursing Mobility/ADLs: Walking Assisted - unsteady, walks with limp Transfer Independent Bathing Assisted Dressing Assisted Toileting Independent - needs assistance getting to restroom Feeding Independent File System Installer Independent Med Delivery whole Wound Care Documentation and Therapy: Elimination: Continence: Bowel: No Bladder: No - did not void overnight and has yet to void today 09/26 -- bladder scanned at 0830am 238 cc Urinary Catheter: None Colostomy/Ileostomy/Ileal Conduit: No Date of Last BM: Intake/Output Summary (Last 24 hours) at 09/26/2021 1504 Last data filed at 09/25/2021 1800 Gross per 24 hour Intake 335 ml Output -- Net 335 ml I/O last 3 completed shifts: In: 455 [P.O.:120; I.V.:335] Out: - Safety Concerns: At Risk for Falls and impulsive behavior - escalates quickly, has not been violent towards staff thus far , RN did call protective services 09/26 for escalating behavior (yelling, cussing, insisting on leaving AMA however, patient on medical hold yellow slip) Impairments/Disabilities: None Nutrition Therapy: Current Nutrition Therapy: - Oral Diet: General Routes of Feeding: Oral Liquids: No Restrictions Daily Fluid Restriction: no Last Modified Barium Swallow with Video (Video Swallowing Test): not done Treatments at the Time of Hospital Discharge: Respiratory Treatments: Oxygen Therapy: is not on home oxygen therapy. Ventilator: - No ventilator support Rehab Therapies: n/a Weight Bearing Status/Restrictions: No weight bearing restrictions Other Medical Equipment (for information only, NOT a DME order): n/a Other Treatments: n/a Patient's personal belongings (please select all that are sent with patient): Shirt, sweatpants, tennis shoes, cell phone, cell phone rag washer, soda can RN SIGNATURE: CASE MANAGEMENT/SOCIAL WORK SECTION Inpatient Status Date: Readmission Risk Assessment Score: Readmission Risk Risk of Unplanned Readmission: 16 Discharging to Facility/ Agency Name: Address: Phone: Fax: Dialysis Facility (if applicable) Name: Address: Dialysis Schedule: Phone: Fax: [facility] signature: {Esignature:[id number]} PHYSICIAN SECTION Prognosis: Fair Condition at Discharge: Stable Rehab Potential (if transferring to Rehab): Good Recommended Labs or Other Treatments After Discharge: None Physician Certification: I certify the above information and transfer of El Smith is necessary for the continuing treatment of the diagnosis listed and that he requires transfer to [place] for less than 30 days. Update Admission H&P: No change in H&P PHYSICIAN SIGNATURE: Kellee Perdomo, MORTGAGE SPECIALIST - SWITCHBOARD CLERK - 09/24/2021 If you have questions, issues, or concerns please call or text the Ischemic Heart Disease coordinator Advance Practice Nurse, Kellee Perdomo, cell phone # [phone] Call your doctor with any medication questions or if you notice any side effects from your medications. If you are unable to fill your medications, please call your [facility] immediately. The office number is located with your follow-up appointment information. Call your doctor if any redness or drainage from the wound site. DO NOT stop taking your medication unless instructed to do so by your doctor. Read the drug information material that were given to you and take medications as instructed by your doctor. New drugs may have been added to your medications, that will strengthen your heart and prevent re-stenosis of the coronary arteries. Drink 6 glasses of water (8 ounces each) over the next 24 hours. Water helps clear the dye from your body. No alcoholic beverages for 24 hours. It may interfere with healing. No exercise or sex for 5 days. Call 911 for chest pain, arm pain, nausea, neck pain, dizziness or unusual sweating AND your pain has not relieved with 2 doses of Nitroglycerin. Call your doctor if a lump at the puncture site enlarges or is larger than marble size. Call your doctor for numbness, tingling, or swelling of the fingers, hand or wrist. Call your doctor for increased area or bruising with discoloration extending into the arm. If bleeding occurs, hold pressure with your thumb against the puncture site and your finger against the back of the wrist for 10 minutes, if BLEEDING continues CALL 911. OK to shower. No tub baths, swimming pools or hot tub soaking for three days. Wash site daily with soap and water, dry gently. The healing wound should remain soft and dry. Keep site clean and dry, no soaking of wrist for three days (no cleaning or dish washing). Remove band aid the day after procedure and leave open to air. No bending of affected wrist for 24 hours. DO NOT lift more than three pounds for 3-5 days[address] driving for 24 hours. GIVE PCI PACKET (FROM CLINICAL COURIER) TO PATIENT Give Coronary Artery Discharge Booklet PLEASE CALL YOUR HEART DOCTOR IF YOU CANNOT GET YOUR MEDICATIONS. THE NUMBER IS LISTED WITH YOUR FOLLOW-UP APPOINTMENT. Procedure Sedation Instructions 1. If you have received sedation: you must have someone drive you home 2. You should not drive a car, operate machinery, drink alcohol or perform any activity that requires alertness for the rest of the day. The effects of the sedative should be gone by tomorrow. Blood work in 5-7 days, see orders Cardiac Rehab The Cardiac Rehab team at [facility] consists of highly skilled exercise physiologists, nurses, respiratory therapists and physicians working together with you. Our purpose is to help you have a full recovery and achieve the goals you set for yourself. Over the years many of our patients have returned to activities they assumed they would never do again! We can help restore your confidence and motivation to make lifestyle changes that can have a significant impact on your health and quality of life! We can help answer questions and concerns you may have about exercise, lifestyle, medications, diet, stress and anxiety which are common following a hospitalization. We monitor ECG and vital signs during exercise and discuss your progress with you and report to your physician. Cardiac Rehab is proven to help reduce readmissions, improve functional capacity and lower recurrence of problems with your heart. We have facilities at both [facility] and [facility]. At both locations we have street level parking which is free and our sites are easily accessible. For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 Schizoaffective disorder, unspecified type (HCC) Insomnia, unspecified type [facility]* Diagnosis Alcoholic intoxication without complication (CMS/HCC) (HCC)- Primary Fall, initial encounter Closed head injury, initial encounter Alcoholic intoxication without complication (CMS/HCC) (HCC) Hypokalemia Hypopotassemia Abnormal CT of the abdomen Nonspecific (abnormal) findings on radiological and other examination of abdominal area, including retroperitoneum Severe opioid use disorder on maintenance therapy (HCC) [facility]* Diagnosis Severe alcohol use disorder (HCC)- Primary Alcohol withdrawal syndrome without complication (HCC) Severe opioid use disorder on maintenance therapy (HCC) Severe opioid use disorder (HCC) Buprenorphine dependence (HCC) Tetrahydrocannabinol (THC) use disorder, severe, dependence (HCC) Severe tobacco use disorder LEEANNE (generalized anxiety disorder) Generalized anxiety disorder Complex posttraumatic stress disorder Major depressive disorder, recurrent episode, moderate (HCC) Major depressive disorder, recurrent episode, moderate Chronic pain disorder Chronic pain syndrome documented in this [facility] Diagnosis PTSD (post-traumatic stress disorder) Posttraumatic stress disorder Generalized anxiety disorder Alcohol withdrawal syndrome without complication (HCC) [facility] Instructions* Marquise Nair MD - 12/28/2020 You have been seen in the Emergency Department for an acute/recent exacerbation of your chronic back pain that goes down your right leg i.e. the right lower extremity sciatica. This makes sense with your recent MRI that showed an L5-S1 disc herniation. To help decrease swelling around the nerve, I have prescribed you a Medrol Dosepak of steroids. Continue taking your naproxen as prescribed. I have also prescribed you some Percocet in case the naproxen is insufficient. Do not drink alcohol or drive a car while on naproxen as it will make you sleepy. I have also prescribed you Lidoderm patches to place directly on your back where it hurts the most, 12 hours on your skin, then 12 hours off. After a visit to the Emergency Department, follow-up is important. [facility]; I recommend you call them on Tuesday toschedule an appointment. Return to the ED if you develop worsening pain in your back or your leg, inability to walk, loss ofbowel or bladder control, you cannot feel your own anus, fevers or chills, your legs or arms feel weak or numb, or if any new signs, symptoms, or concerns arise. * Attachments The following attachments cannot be sent through Care Everywhere. * Low Back Pain: Exercises (Indian) * Sciatica (Indian) * Back: Stretches: Exercises (Indian) documented in this [facility] Work Phone: Hospital Discharge instructions* Attachments The following attachments cannot be sent through Care Everywhere. * Sciatica (Indian) documented in this [facility] Work Phone: Hospital Discharge instructions* Attachments The following attachments cannot be sent through Care Everywhere. * Headache (Indian) documented in this [facility] Work Phone: Hospital Discharge instructions* Attachments The following attachments cannot be sent through Care Everywhere. * Alcohol Withdrawal Discharge Instructions (Indian) documented in this [facility] Discharge instructions* Attachments The following attachments cannot be sent through Care Everywhere. * Hand Fracture ED (Indian) * Splint Care ED (Indian) documented in this [facility] Discharge instructions* Attachments The following attachments cannot be sent through Care Everywhere. * [facility]Indian[facility] Eval and Treat (Routine) - In Progress Specialty Diagnoses / Procedures Referred By Kalyani kelly Referred To Contact Cardiac Rehabilitation Diagnoses Acute myocardial infarction, unspecified [facility] type, unspecified artery (HCC) Kellee Perdomo APRN - SWITCHBOARD CLERK [address] [facility] [address] [place] [address] Card Rehab [address] [place] [address] Referral ID Status Reason Start Date Expiration Date Visits Requested Visits Authorized [id number] In Progress Specialty Services Required 09/24/2021 09/24/2022 1 1 Scheduling Instructions [facility] Cardiac Rehab [address] [place] [address] [address] [place] [address] [facility] Work Phone: Reason for referral (narrative)* Consultation (Routine) - Pending Review Specialty Diagnoses / Procedures Referred By Kalyani kelly Referred To Contact Hand Surgery / Orthopedic Surgery Diagnoses Closed displaced fracture of shaft of fourth metacarpal bone of left hand, initial encounter Procedures MI OFFICE/OUTPATIENT NEW [facility] 60 MINUTES Giovani Collado MD [address] [place] [address] [facility] [address] [place] [address] Referral ID Status Reason Start Date Expiration Date Visits Requested Visits Authorized [id number] Pending Review Specialty Services Required 10/21/2023 10/20/2024 1 1 [facility] for referral (narrative)* Consultation (Routine) - Pending Review Specialty Diagnoses / Procedures Referred By Contac t Referred To Contact Addiction Medicine / Addiction Support Services Diagnoses Methadone withdrawal (HCC) Procedures MI OFFICE/OUTPATIENT [facility] 60 MINUTES Lauri Dior MD [address] [place] [address] [facility] [address] [place] [address] Referral ID Status Reason Start Date Expiration Date Visits Requested Visits Authorized [id number] Pending Review Specialty Services Required 4 01/27/2025 1 1 * Consultation (Routine) - Pending Review Specialty Diagnoses / Procedures Referred By Contac t Referred To Contact Pulmonology Diagnoses Lung nodules Procedures MI OFFICE/OUTPATIENT [facility] 60 MINUTES Lauri Dior MD [address] [place] [address] [facility] [address] [place] [address] Referral ID Status Reason Start Date Expiration Date Visits Requested Visits Authorized [id number] Pending Review Specialty Services Required 4 01/27/2025 1 1 [facility] for referral (narrative)* Diagnostic Procedure Only (Routine) - Closed Specialty Diagnoses / Procedures Referred By Contac t Referred To Contact XR IMAGING Diagnoses Chronic right shoulder pain Procedures XR SHOULDER GENERAL 3V OR MORE AP/TRUE AP/OTHER RIGHT RADEX SHOULDER COMPLETE MINIMUM 2 VIEWS Hai Clark MD [address] [place] [address] X[facility] [place] [address] Referral ID Status Reason Start Date Expiration Date V isits Requested Visits Authorized [id number] Closed Auto-Generate d Referral 05/22/2024 06/21/2025 1 1 [facility] for referral (narrative)* Diagnostic Procedure Only (Routine) - Closed Specialty Diagnoses / Procedures Referred By Contac t Referred To Contact XR IMAGING Diagnoses Chronic right shoulder pain Procedures XR SHOULDER GENERAL 3V OR MORE AP/TRUE AP/OTHER RIGHT RADEX SHOULDER COMPLETE MINIMUM 2 VIEWS Hai Clark MD [address] [place] [address] [facility] [place] [address] Referral ID Status Reason Start Date Expiration Date V isits Requested Visits Authorized [id number] Closed Auto-Generate d Referral 05/22/2024 06/21/2025 1 1 [facility] for visit Narrative* Auth/Cert (Routine) Specialty Diagnoses / Procedures Referred By Contac t Referred To Contact Diagnoses SAH (subarachnoid hemorrhage) (HCC) Multiple abrasions Contusion of face, initial encounter Chin laceration, initial encounter Alcoholic intoxication with complication (CMS/HCC) (HCC) Alcohol use disorder Chronic low back pain, unspecified back pain laterality, unspecified whether sciatica present Procedures . Raiza Mccollum MD [address] [place] [address] Phone: tel: fax: [facility] Surgical Trauma Neuro Intensive Care Unit STN ICU T2 [address] [place] [address] Phone: tel: Referral ID Status Reason Start Date Expiration Date Visits Re quested Visits Authorized [id number] 1 1 [facility] for visit Narrative* Imaging (Routine) - Closed Specialty Diagnoses / Procedures Referred By Contac t Referred To Contact Radiology Diagnoses SAH (subarachnoid hemorrhage) (HCC) Procedures CT head wo IV contrast Chela Tenorio, MORTGAGE SPECIALIST - SWITCHBOARD CLERK [address] [place] [address] Phone: tel: fax: Referral ID Status Reason Start Date Expiration Date Visits Re quested Visits Authorized [id number] Closed 02/12/2024 02/11/2025 1 1 [facility] for visit Narrative* Diagnostic Procedure Only (Routine) - Closed Specialty Diagnoses / Procedures Referred By Contac t Referred To Contact XR IMAGING Diagnoses Chronic right shoulder pain Procedures XR SHOULDER GENERAL 3V OR MORE AP/TRUE AP/OTHER RIGHT RADEX SHOULDER COMPLETE MINIMUM 2 VIEWS Hai Clark MD [address] [place] [address] [facility] [place] [address] Referral ID Status Reason Start Date Expiration Date V isits Requested Visits Authorized [id number] Closed Auto-Generate d Referral 05/22/2024 06/21/2025 1 1 [facility] Summary Purpose Family History No Family History Records FoundNo Family History Records FoundNo Family History Records FoundNo Family History Records FoundNo Family History Records FoundNo Family History Records FoundNo Family History Records FoundNo Family History Records FoundNo Family History Records FoundNo Family History Records FoundNo Family History Records FoundNo Family History Records FoundNo Family History Records Found Advance Directives Date Activated Date Inactivated Comments 12/02/2024 1:29 PM 12/04/2024 5:48 PM Date Activated Date Inactivated Comments 05/27/2024 1:25 PM 05/28/2024 4:44 PM Date Activated Date Inactivated Comments 03/06/2024 8:15 AM 03/06/2024 5:28 PM Date Activated Date Inactivated Comments 02/14/2024 6:16 AM 02/14/2024 2:36 PM Date Activated Date Inactivated Comments 02/11/2024 3:33 PM 02/13/2024 5:39 PM Date Activated Date Inactivated Comments 02/11/2024 3:33 PM 02/13/2024 5:39 PM Date Activated Date Inactivated Comments 04/19/2023 10:32 AM 04/22/2023 2:04 PM Date Activated Date Inactivated Comments 04/17/2023 2:01 AM 04/17/2023 6:10 PM Date Activated Date Inactivated Comments 01/29/2023 9:57 PM 02/03/2023 4:07 PM Date Activated Date Inactivated Comments 09/18/2022 7:55 PM 09/19/2022 10:03 AM Documents on File Type Date Recorded Patient Spring Tacker Expl anation Advance Directives and Living Will Power of Highway Engineering Technician Latest Code Status on File Code Status Date Activated Date Inactivated Comments Full Code 09/22/2019 9:14 AM Documents on File Type Date Recorded Patient Spring Tacker Expl anation Advance Directives and Living Will Power of Highway Engineering Technician Latest Code Status on File Code Status Date Activated Date Inactivated Comments Full Code 09/22/2019 9:14 AM 09/22/2019 1:22 PM Documents on File Type Date Recorded Patient Spring Tacker Expl anation ACP-Advance Directive ACP-Power of Highway Engineering Technician Latest Code Status on File Code Status Date Activated Date Inactivated Comments Full Code 09/22/2019 9:14 AM 09/22/2019 1:22 PM Latest Code Status on File Code Status Date Activated Date Inactivated Comments Full Code 07/03/2020 8:15 PM Full Code 09/22/2019 9:14 AM 09/22/2019 1:22 PM Latest Code Status on File Code Status Date Activated Date Inactivated Comments Full Code 07/03/2020 8:15 PM 07/05/2020 9:38 AM Documents on File Type Date Recorded Patient Spring Tacker Expl anation ACP-Advance Directive ACP-Power of Highway Engineering Technician Latest Code Status on File Code Status Date Activated Date Inactivated Comments Full Code 09/24/2021 12:35 AM Full Code 07/03/2020 8:15 PM 07/05/2020 9:38 AM Full Code 09/22/2019 9:14 AM 09/22/2019 1:22 PM Latest Code Status on File Code Status Date Activated Date Inactivated Comments Full Code 09/16/2022 9:59 AM 09/16/2022 7:27 PM Latest Code Status on File Code Status Date Activated Date Inactivated Comments Full Code 09/18/2022 7:55 PM Code Status History Code Status Date Activated Date Inactivated Comments Full Code 09/16/2022 9:59 AM 09/16/2022 7:27 PM Latest Code Status on File Code Status Date Activated Date Inactivated Comments Full Code 09/18/2022 7:55 PM 09/19/2022 10:03 AM Latest Code Status on File Code Status Date Activated Date Inactivated Comments Full Code 01/29/2023 9:57 PM Code Status History Code Status Date Activated Date Inactivated Comments Full Code 09/18/2022 7:55 PM 09/19/2022 10:03 AM Full Code 09/16/2022 9:59 AM 09/16/2022 7:27 PM Latest Code Status on File Code Status Date Activated Date Inactivated Comments Full Code 01/29/2023 9:57 PM 02/03/2023 4:07 PM Code Status History Code Status Date Activated Date Inactivated Comments Full Code 09/18/2022 7:55 PM 09/19/2022 10:03 AM Full Code 09/16/2022 9:59 AM 09/16/2022 7:27 PM Latest Code Status on File Code Status Date Activated Date Inactivated Comments Full Code 04/17/2023 2:01 AM Code Status History Code Status Date Activated Date Inactivated Comments Full Code 01/29/2023 9:57 PM 02/03/2023 4:07 PM Full Code 09/18/2022 7:55 PM 09/19/2022 10:03 AM Full Code 09/16/2022 9:59 AM 09/16/2022 7:27 PM Latest Code Status on File Code Status Date Activated Date Inactivated Comments Full Code 04/17/2023 2:01 AM 04/17/2023 6:10 PM Latest Code Status on File Code Status Date Activated Date Inactivated Comments Full Code 04/19/2023 10:32 AM 04/22/2023 2:04 PM Code Status History Code Status Date Activated Date Inactivated Comments Full Code 04/17/2023 2:01 AM 04/17/2023 6:10 PM Full Code 01/29/2023 9:57 PM 02/03/2023 4:07 PM Full Code 09/18/2022 7:55 PM 09/19/2022 10:03 AM Full Code 09/16/2022 9:59 AM 09/16/2022 7:27 PM Date Activated Date Inactivated Comments 04/19/2023 10:32 AM 04/22/2023 2:04 PM Date Activated Date Inactivated Comments 04/17/2023 2:01 AM 04/17/2023 6:10 PM Date Activated Date Inactivated Comments 01/29/2023 9:57 PM 02/03/2023 4:07 PM Date Activated Date Inactivated Comments 09/18/2022 7:55 PM 09/19/2022 10:03 AM Date Activated Date Inactivated Comments 09/16/2022 9:59 AM 09/16/2022 7:27 PM Date Activated Date Inactivated Comments 04/19/2023 10:32 AM 04/22/2023 2:04 PM Date Activated Date Inactivated Comments 04/17/2023 2:01 AM 04/17/2023 6:10 PM Date Activated Date Inactivated Comments 01/29/2023 9:57 PM 02/03/2023 4:07 PM Date Activated Date Inactivated Comments 09/18/2022 7:55 PM 09/19/2022 10:03 AM Date Activated Date Inactivated Comments 09/16/2022 9:59 AM 09/16/2022 7:27 PM Date Activated Date Inactivated Comments 02/11/2024 3:33 PM Date Activated Date Inactivated Comments 02/14/2024 6:16 AM Date Activated Date Inactivated Comments 02/11/2024 3:33 PM 02/13/2024 5:39 PM Date Activated Date Inactivated Comments 04/19/2023 10:32 AM 04/22/2023 2:04 PM Date Activated Date Inactivated Comments 04/17/2023 2:01 AM 04/17/2023 6:10 PM Date Activated Date Inactivated Comments 01/29/2023 9:57 PM 02/03/2023 4:07 PM Date Activated Date Inactivated Comments 02/14/2024 6:16 AM 02/14/2024 2:36 PM Date Activated Date Inactivated Comments 02/11/2024 3:33 PM 02/13/2024 5:39 PM Date Activated Date Inactivated Comments 04/19/2023 10:32 AM 04/22/2023 2:04 PM Date Activated Date Inactivated Comments 04/17/2023 2:01 AM 04/17/2023 6:10 PM Date Activated Date Inactivated Comments 01/29/2023 9:57 PM 02/03/2023 4:07 PM Date Activated Date Inactivated Comments 02/14/2024 6:16 AM 02/14/2024 2:36 PM Date Activated Date Inactivated Comments 03/06/2024 8:15 AM Date Activated Date Inactivated Comments 02/14/2024 6:16 AM 02/14/2024 2:36 PM Date Activated Date Inactivated Comments 02/11/2024 3:33 PM 02/13/2024 5:39 PM Date Activated Date Inactivated Comments 04/19/2023 10:32 AM 04/22/2023 2:04 PM Date Activated Date Inactivated Comments 04/17/2023 2:01 AM 04/17/2023 6:10 PM Date Activated Date Inactivated Comments 03/06/2024 8:15 AM 03/06/2024 5:28 PM Date Activated Date Inactivated Comments 02/14/2024 6:16 AM 02/14/2024 2:36 PM Date Activated Date Inactivated Comments 02/11/2024 3:33 PM 02/13/2024 5:39 PM Date Activated Date Inactivated Comments 04/19/2023 10:32 AM 04/22/2023 2:04 PM Date Activated Date Inactivated Comments 04/17/2023 2:01 AM 04/17/2023 6:10 PM Date Activated Date Inactivated Comments 03/06/2024 8:15 AM 03/06/2024 5:28 PM Date Activated Date Inactivated Comments 05/27/2024 1:25 PM 05/28/2024 4:44 PM Date Activated Date Inactivated Comments 03/06/2024 8:15 AM 03/06/2024 5:28 PM Date Activated Date Inactivated Comments 02/14/2024 6:16 AM 02/14/2024 2:36 PM Date Activated Date Inactivated Comments 02/11/2024 3:33 PM 02/13/2024 5:39 PM Date Activated Date Inactivated Comments 04/19/2023 10:32 AM 04/22/2023 2:04 PM Date Activated Date Inactivated Comments 12/02/2024 1:29 PM Discharge Instructions * Attachments The following attachments cannot be sent through Care Everywhere. * Flank Pain (Indian) documented in this encounter* Attachments The following attachments cannot be sent through Care Everywhere. * Pancreatitis (Indian) documented in this encounter* Instructions* Darlyn Elias PA-C - 11/18/2019 Follow up with PCP within 3 days for reevaluation and further examination. Return to Emergency Department if symptoms worsen or do not improve. documented in this encounter* Instructions* Naila Orozco MD - 04/05/2020 Return if chest pain or it is worse or heart rate gets faster. Drink plenty of fluids or try to avoid alcohol * Attachments The following attachments cannot be sent through Care Everywhere. * Alcohol Withdrawal: General Info (Indian) * Video: Alcohol: Taking Action (Indian) * Video: Alcohol: Time for a Change? (Indian) * Video: Alcohol: The Space It Takes Up in Your Life (Indian) * Chest Pain (Indian) documented in this encounter* Discharge Instr - Lab* Pushpa Brown RN - 07/04/2020 12:56 PM EDT [facility] [phone] offer services including medical, dental, [facility], behavioral health and a reduced-rate pharmacy. Fees are based on current income and family size. Please refer to your handout for additional information and all location options. [place] [address] [place] [address] Tuesday 8 AM 6 PM Tuesday 8 AM 2 PM documented in this encounter Assessments Diagnosis Flank pain Abdominal pain, unspecified site Diagnosis Alcohol-induced acute pancreatitis without infection or necrosis Diagnosis Acute pancreatitis without infection or necrosis, unspecified pancreatitis type Failure of outpatient treatment Diagnosis Neck pain Cervicalgia Diagnosis Chest pain, unspecified type- Primary Tachycardia Tachycardia, unspecified Alcohol abuse Alcohol abuse, unspecified Alcohol withdrawal syndrome without complication (HCC) Diagnosis Right leg pain Pain in limb Diagnosis Intractable back pain- Primary Backache, unspecified Sciatica of right side Sciatica Depression with suicidal ideation Acute alcoholic intoxication without complication (HCC) Acute exacerbation of chronic low back pain Reason for Referral Status Reason Specialty Diagnoses / Procedures Referred By Contact Referred To Contact Open Specialty Services Required Family Medicine Diagnoses Neck pain Darlyn Elias, PA-C [address] [place] [address] [facility] [address] [place] [address] Scheduling Instructions [address] [place] [address] History of Present Illness * Mitra Bermudez, RN - 07/05/2020 5:45 AM EDT Patient increasingly agitated this morning, and wanting to leave. This RN tried to explain to him if he stays at least 2 hours the surgeon will be able to see him and come up with a plan and that he would most likely be discharged afterwards. Dr. Stewart notified via perfect serve at 0548. Patient alert and oriented x4. Voluntarily signed out AMA at 0614. Escorted out by protective services. * Charissa Shrestha, OT - 07/04/2020 2:56 PM EDT Occupational Therapy Occupational Therapy Initial Assessment Date: 07/04/2020 Patient Name: El Smith : 1980 Date of Service: 07/04/2020 Discharge Recommendations: 24 hour supervision or assist Assessment Assessment: EVAL ONLY: Pt was and continues to be functionally independent in ADLs, functional transfers and mobility, pt is SUP d/t current detox. Pt with no acute OT needs and no concerns for returning home. Prognosis: Good Decision Making: Low Complexity History: Pt admitted pink slipped d/t throwing self off a flight of steps with intent to kill self.PMH is listed above. Exam: [facility] Assistance / Modification: SUP OT Education: OT Role;Plan of Care Barriers to Learning: none No Skilled OT: Independent with functional mobility;Independent with ADL's;No OT goals identified REQUIRES OT FOLLOW UP: No Activity Tolerance Activity Tolerance: Patient Tolerated treatment well Safety Devices Safety Devices in place: Yes Type of devices: All fall risk precautions in place;Call light within reach;Gait belt;Patient at risk for falls;Nurse notified;Left in bed Patient Diagnosis(es): The primary encounter diagnosis was Intractable back pain. Diagnoses of Sciatica of right side, Depression with suicidal ideation, and Acute alcoholic intoxication without complication (HCC) were also pertinent to this visit. has a past medical history of Anxiety, Chronic back pain, Chronic pain, Degenerative disc disease, lumbar, Depression, Gastrointestinal complaints, Hypertension, and Spinal stenosis, lumbar. has a past surgical history that includes Colonoscopy; fracture surgery; and Arm Surgery. Restrictions Restrictions/Precautions Restrictions/Precautions: General Precautions, Seizure, Fall Risk(CIWA, suicide precautions, tele) Required Braces or Orthoses?: No Subjective General Chart Reviewed: Yes Patient assessed for rehabilitation services?: Yes Family / Caregiver Present: No Subjective Subjective: Pt pleasant and cooperative. General Comment Comments: Per RN, ok for pt to participate in OT eval. Patient Currently in Pain: Yes(Pt c/o abdominal pain, however, unable to numerically rate) Pain Assessment Pain Level: 10 Vital Signs Patient Currently in Pain: Yes(Pt c/o abdominal pain, however, unable to numerically rate) Social/Functional History Social/Functional History Lives With: Family Type of Home: House Home Layout: Two level Home Access: Stairs to enter without rails Bathroom Shower/Tub: Tub/Shower unit Bathroom Toilet: Standard Bathroom Equipment: (denied) Home Equipment: (denied) ADL Assistance: Independent Homemaking Assistance: Independent Ambulation Assistance: Independent Transfer Assistance: Independent Active Parts Inspector: Yes Mode of Transportation: Car Occupation: 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 ADL Feeding: Independent Grooming: Modified independent UE Bathing: Modified independent LE Bathing: Supervision UE Dressing: Modified independent LE Dressing: Supervision Toileting: Supervision Additional Comments: SUP for donning briefs and pants for safety d/t detoxing. Bed mobility Supine to Sit: Modified independent Sit to Supine: Modified independent Scooting: Modified independent Comment: Denied dizziness with changes in positioning. Transfers Sit to stand: Supervision Stand to sit: Supervision Transfer Comments: Pt completed ~3 trials- pt required SUP for safety d/t detoxing. Cognition Cognition Comment: Pt answered questions and followed commands appropriately, however, pt is currently detoxing. Sensation Overall Sensation Status: WFL LUE AROM (degrees) LUE AROM : WFL RUE AROM (degrees) RUE AROM : WFL LUE Strength Gross LUE Strength: WFL RUE Strength Gross RUE Strength: WFL Plan Plan Times per week: eval only Plan Comment: POC was made in collaboration with the pt. AM-PAC Score AM-PAC Inpatient Daily Activity Raw Score: 24 (07/04/20 145) AM-PAC Inpatient ADL T-Scale Score : 57.54 (07/04/20 145) ADL Inpatient CMS 0-100% Score: 0 (07/04/201451) ADL Inpatient CMS G-Code Modifier : CH (07/04/201451) Therapy Time Individual Concurrent Group Co-treatment Time In 1357 Time Out 1406 Minutes 9 Charissa Shrestha OT * Diana Villar MD - 07/04/2020 10:00 AM EDT Images from the original note were not included. Throughout the encounter I wore and N95 mask and face shield Hospitalist Progress Note 07/04/2020 10:00 AM [phone]: Please page me @ [phone] for patient care issues. [phone]: Please page [facility] night Hospitalist for any issues. Subjective: Admit Date: 07/03/2020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 07/26/21 at 2008, Maximum dose of acetaminophen is 4000 mg from all sources in 24 hours. 2011 (Given - Provid er: Dev Frank RN) ketorolac (TORADOL) injection 30 mg (COMPLETED) Ketorolac is contraindicated in patients with advanced renal impairment and in patients at risk of renal failure due to volume depletion. For 65 years of age and older OR weight less than 50 kg, use 15 mg IV every 6 hours; MAX dose: 60 mg/day. Dose greater than 30 mg must be administered via intramuscular route. Do not administer for more than 5 days., 30 mg, IntraMUSCular, ONCE, 1 dose, On [place] 07/26/21 at 1937, Do not administer for more than 5 days. 1945 (Given - Provid er: Dev Frank RN) Scheduled Medication Order 09/24/2021 09/25/2021 09/26/2021 aspirin chewable tablet 81 mg 81 mg, Oral, DAILY, First dose on [place] 09/24/21 at 0900, Until Discontinued 0802 (Given - Provider: Jamey Thompson RN) 0930 (Given - Provider: Raiza Jiménez, DESIREE) 0811 (Given - Provider: Prerna Contreras, DESIREE) atorvastatin (LIPITOR) tablet 80 mg (CANCELED) 80 mg, Oral, NIGHTLY, First dose on [place] 09/24/21 at 0100, Until Discontinued, Recovery(Cath) 0157 (Given - Provider: Charo Mullins RN) carvedilol (COREG) tablet 12.5 mg 12.5 mg, Oral, 2 TIMES DAILY WITH MEALS, First dose (after last modification) on [facility] 09/24/21 at 0800, Until Discontinued, Administer with food to minimize the risk of orthostatic hypotension 0802 (Given - Provider: Jamey Thompson RN)1609 (Given - Provider: Jamey Thompson RN) 0930 (Given - Provider: Raiza Jiménez, DESIREE)1638 (Given - Provider: Raiza Jiménez, DESIREE) 0823 (Given - Provider: Prerna Contreras, DESIREE)1608 (Given - Provider: Prerna Contreras, DESIREE) carvedilol (COREG) tablet 6.25 mg (CANCELED) 6.25 mg, Oral, 2 TIMES DAILY WITH MEALS, First dose (after last modification) on [facility] 09/24/21 at 0215, Until Discontinued, Administer with food to minimize the risk of orthostatic hypotension 0157 (Given - Provider: Charo Mullins RN) dronabinol (MARINOL) capsule 2.5 mg 2.5 mg, Oral, 2 TIMES DAILY, 4 doses, First dose on 09/26/21 at 1215, Last dose on 09/27/21 at 2100 1249 (Given - Provider: Prerna Contreras RN)2099 (Due) enoxaparin (LOVENOX) injection 40 mg (CANCELED) 40 mg, SubCUTAneous, DAILY, First dose on Tue09/25/21 at 1445, Until Discontinued, Indication of Use: Prophylaxis-DVT/PE 1556 (Given - Provider: Raiza Jiménez RN) 0811 (Given - Provider: Prerna Contreras RN) lactated ringers bolus (COMPLETED) 500 mL, IntraVENous, at 491.8 mL/hr, Administer over 61 Minutes, ONCE, On [place] 09/24/21 at 0200, For 1 dose 0142 (New Bag - Provider: Charo Mullins RN)0243 (Stopped - Provider: Charo Mullins RN) lidocaine 4 % external patch 1 patch 1 patch, TransDERmal, Administer over 12 Hours, DAILY, First dose on Tue09/24/21 at 0900, Apply patch to affected area. Patch may remain in place for up to 12 hours in any 24 hour period. 0802 (Patch Applied - Provider: Jamey Thompson RN)2105 (Patch Removed - Provider: Charo Mullins RN) 0933 (Patch Applied - Provider: Raiza Jiménez RN)193 (Patch Removed - Provider: Abner Simpson RN - Comment: removed by pt) 08 (Patch Applied - Provider: Prerna Contreras RN)2010 (Due: Patch Removed - Provider: Prerna Cotnreras RN) lisinopril (PRINIVIL;ZESTRIL) tablet 5 mg 5 mg, Oral, DAILY, First dose on [place] 09/24/21 at 1045, Until Discontinued 1032 (Given - Provider: Jamey Thompson RN) 0930 (Given - Provider: Raiza Jiménez RN) 0823 (Given - Provider: Prerna Contreras RN) LORazepam (ATIVAN) injection 2 mg (COMPLETED) 2 mg, IntraVENous, ONCE, 1 dose, On Tue09/24/21 at 0300 0240 (Given - Provider: Charo Mullins RN) magnesium sulfate 4000 mg in 100 mL IVPB premix (COMPLETED) 4,000 mg, IntraVENous, at 25 mL/hr, Administer over 4 Hours, ONCE, On Tue09/24/21 at 0200, For 1 dose, Recommended infusion rate not to exceed 1,000 mg (milligrams) per hour. 0157 (New Bag - Provider: Charo Mullins RN)0556 (Stopped - Provider: Charo Mullins RN) melatonin tablet 5 mg 5 mg, Oral, NIGHTLY, First dose on Tue09/25/21 at 2100, Until Discontinued 2114 (Given - Provider: Abner Simpson RN) 2099 (Due) mirtazapine (REMERON) tablet 7.5 mg 7.5 mg, Oral, NIGHTLY, First dose on Tue09/24/21 at 2100, Until Discontinued 2050 (Given - Provider: Charo Mullins RN) 2000 (Given - Provider: Abner Simpson RN) 2099 (Due) nicotine (NICODERM CQ) 21 MG/24HR 1 patch 1 patch, TransDERmal, Administer over 24 Hours, DAILY, First dose on Tue09/24/21 at 0900, Apply new patch to nonhairy, clean, dry skin on the upper body or upper outer arm. Rotate patch sites. Notify pharmacy if patient or provider prefers patch to be removed at bedtime and replaced in the morning. Hazardous Medication -- Refer to facility policy for handling and disposal. 0809 (Not Given - Provider: Jamey Thompson RN - Reason: Patient/family refused) 0934 (Patch Applied - Provider: Raiza Jiménez RN) 0812 (Patch Applied - Provider: Prerna Contreras RN) PHENobarbital (LUMINAL) injection 100 mg (CANCELED) 100 mg, IntraVENous, EVERY 4 HOURS, First dose on Tue09/25/21 at 1300, Until Discontinued, Hold if asleep/overly sedated 1331 (Given - Provider: Raiza Jiménez, DESIREE)1641 (Given - Provider: Raiza Jiménez, DESIREE)2011 (Given - Provider: Abner Simpson RN - Comment: cluster care per pt request) PHENobarbital (LUMINAL) tablet 64.8 mg 64.8 mg, Oral, EVERY 4 HOURS, First dose (after last modification) on 09/26/21 at 1600, Until Discontinued, Hold if asleep/overly sedated 1608 (Given - Provider: Prerna Contreras RN)1999 (Due) PHENobarbital (LUMINAL) tablet 97.2 mg (CANCELED) 97.2 mg, Oral, EVERY 4 HOURS, First dose on [place] 09/24/21 at 1530, Until Discontinued, Hold if asleep/overly sedated 1609 (Given - Provider: Jamey Thompson RN)1924 (Given - Provider: Jamey Thompson RN)2303 (Given - Provider: Charo Mullins RN) 0319 (Given - Provider: Charo Mullins RN)0810 (Given - Provider: Raiza Jiménez, DESIREE)1049 (Given - Provider: Raiza Jiménez, DESIREE) PHENobarbital (LUMINAL) tablet 97.2 mg (CANCELED) 97.2 mg, Oral, EVERY 4 HOURS, First dose on 09/26/21 at 0000, Until Discontinued 0035 (Given - Provider: Abner Simpson RN)0405 (Given - Provider: Abner Simpson RN)0811 (Given - Provider: Prerna Contreras RN)1131 (Given - Provider: Prerna Contreras RN) potassium chloride (KLOR-CON M) extended release tablet 40 mEq (COMPLETED) 40 mEq, Oral, ONCE, 1 dose, On Tue09/25/21 at 0145, Do not crush, chew, or suck on tablet. Tablet may also be broken in half and each half swallowed separately. 031 (Given - Provider: Charo Mullins RN) rosuvastatin (CRESTOR) tablet 40 mg 40 mg, Oral, NIGHTLY, First dose on [place] 09/24/21 at 2100, Until Discontinued 2050 (Given - Provider: Charo Mullins RN) 2001 (Given - Provider: Abner Simpson RN) 2099 (Due) sodium chloride flush 0.9 % injection 3 mL (CANCELED) 3 mL, IntraVENous, EVERY 8 HOURS, First dose on Tue09/23/21 at 2252, Until Discontinued, Flush line with 3-5 mL 0520 (Not Given - Provider: Charo Mullins RN - Reason: IV Fluid Infusing)1308 (Given - Provider: Jamey Thompson RN)2306 (Given - Provider: Charo Mullins RN) 0622 (Given - Provider: Charo Mullins RN)1427 (Not Given - Provider: Raiza Jiménez RN - Reason: Loss of IV access)2252 (Canceled Entry - Provider: Abner Simpson RN) 0652 (Canceled Entry - Provider: Abner Simpson RN) sodium chloride flush 0.9 % injection 3 mL (CANCELED) 3 mL, IntraVENous, EVERY 8 HOURS, First dose on Tue09/23/21 at 2259, Until Discontinued, Flush line with 3-5 mL 0557 (Given - Provider: Charo Mullins RN)1308 (Given - Provider: Jamey Thompson RN)2306 (Given - Provider: Charo Mullins RN) 0622 (Given - Provider: Charo Mullins RN)1427 (Not Given - Provider: Raiza Jiménez RN - Reason: Loss of IV access)2259 (Canceled Entry - Provider: Abner Simpson RN) 0659 (Canceled Entry - Provider: Abner Simpson RN) sodium chloride flush 0.9 % injection 5-40 mL (CANCELED) 5-40 mL, IntraVENous, EVERY 12 HOURS SCHEDULED (2 times per day), First dose on Tue09/24/21 at 0900, Until Discontinued, For Line Patency: Peripheral IV = 5 mL; Midline or Central Line = 10 mL/lumen. If following IV push medication, administer flush at same rate as the IV push. Flush volume is determined by type of infusion therapy being given. For non-viscous solutions use: Peripheral IV = 5 mL Midline or Central Line = 10 mL/lumen For viscous solutions (i.e. blood components, parenteral nutrition, contrast media, or after obtaining blood sample) use: Peripheral IV = 10 mL Midline or Central Line = 20 mL/lumen, Recovery(Cath) 0810 (Given - Provider: Jamey Thompson RN) sodium chloride flush 0.9 % injection 5-40 mL (CANCELED) 5-40 mL, IntraVENous, EVERY 12 HOURS SCHEDULED (2 times per day), First dose on [place] 09/24/21 at 0900, Until Discontinued, For Line Patency: Peripheral IV = 5 mL; Midline or Central Line = 10 mL/lumen. If following IV push medication, administer flush at same rate as the IV push. Flush volume is determined by type of infusion therapy being given. For non-viscous solutions use: Peripheral IV = 5 mL Midline or Central Line = 10 mL/lumen For viscous solutions (i.e. blood components, parenteral nutrition, contrast media, or after obtaining blood sample) use: Peripheral IV = 10 mL Midline or Central Line = 20 mL/lumen 0810 (Given - Provider: Jamey Thompson RN)2106 (Given - Provider: Charo Mullins RN) 1426 (Given - Provider: Raiza Jiménez, DESIREE)193 (Canceled Entry - Provider: Abner Simpson RN) thiamine (B-1) injection 100 mg (CANCELED) Doses greater than 100 mg should be administered over 1-2 minutes, 100 mg, IntraVENous, EVERY 8 HOURS, First dose on Tue09/25/21 at 1400, Until Discontinued 133 (Given - Provider: Raiza Jiménez, DESIREE)2001 (Given - Provider: Abner Simpson RN) thiamine mononitrate tablet 100 mg (CANCELED) 100 mg, Oral, DAILY, First dose on [place] 09/24/21 at 0900, Until Discontinued 08 (Given - Provider: Jamey Thompson RN) thiamine mononitrate tablet 100 mg (CANCELED) 100 mg, Oral, 3 TIMES DAILY, First dose (after last modification) on [place] 09/24/21 at 2100, Until Discontinued 2050 (Given - Provider: Charo Mullins RN) 929 (Given - Provider: Raiza Jiménez, DESIREE) thiamine mononitrate tablet 100 mg 100 mg, Oral, 3 times daily, First dose on Tue09/26/21 at 0900, Until Discontinued 0811 (Given - Provider: Prerna Contreras RN)160 (Given - Provider: Prerna Contreras RN)2100 (Due) ticagrelor (BRILINTA) tablet 90 mg 90 mg, Oral, 2 TIMES DAILY, First dose (after last modification) on Tue09/25/21 at 0900, Until Discontinued, Ticagrelor maintenance dose should be given with 81mg of Aspirin, Recovery(Cath) 0930 (Given - Provider: Raiza Jiménez, DESIREE)2000 (Given - Provider: Abner Simpson RN) 08 (Given - Provider: Prerna Contreras RN)2100 (Due) vancomycin (VANCOCIN) 1500 mg in sodium chloride 0.9% 250 mL IVPB (CANCELED) 1,500 mg (16.1 mg/kg), IntraVENous, at 125 mL/hr, Administer over 120 Minutes, EVERY 12 HOURS, First dose on Tue09/25/21 at 1200 1205 (New Bag - Provider: Raiza Jiménez RN)1427 (Stopped - Provider: Raiza Jiménez RN) 0133 (Not Given - Provider: Abner Simpson RN - Reason: Loss of IV access - Comment: CCU aware) PRN Medication Order 09/24/2021 09/25/2021 09/26/2021 0.9 % sodium chloride infusion IntraVENous, at 5-250 mL/hr, PRN, if patient receiving piggyback infusions and maintenance fluids are not ordered OR KVO fluids to protect IV site / prevent frequent line interruptions/ long duration, Starting on [place] 09/24/21 at 0624, For piggyback infusion, administer at same rate as piggyback for a total of 25 mL. Enter 25 mL into dose field and piggyback rate into rate field of order. If piggyback is infusing at a rate less than 100 mL/hr, enter 25 mL into dose field and 100 mL/hr into rate field of order. For KVO fluids, enter rate of 20 mL/hr or less into rate field of order. acetaminophen (TYLENOL) tablet 650 mg 650 mg, Oral, EVERY 4 HOURS PRN, Starting on Stacy 09/24/21 at 0035, Until Discontinued, Pain Mild (1-3), Fever, Fever >100.5 F (38 C), Maximum dose of acetaminophen is 4000 mg from all sources in 24 hours., Recovery(Cath) 0453 (Given - Provider: Charo Mullins RN) 1048 (Given - Provider: Raiza Jiménez, DESIREE)1815 (Given - Provider: Raiza Jiménez, DESIREE) diclofenac sodium (VOLTAREN) 1 % gel 2 g 2 g, Topical, 4 TIMES DAILY PRN, Starting on 09/26/21 at 1408, Until Discontinued, Pain, Apply to affected area. 1608 (Given - Provider: Prerna Contreras, DESIREE) haloperidol lactate (HALDOL) injection 5 mg 5 mg, IntraMUSCular, EVERY 6 HOURS PRN, Starting on 09/25/21 at 1639, Until Discontinued, Agitation, IM route of administration preferred. Because of the risk of TdP and QT prolongation, ECG monitoring is recommended if haloperidol is given IV. 1125 (Given - Provider: Prerna Contreras RN) LORazepam (ATIVAN) injection 1 mg 1 mg, IntraVENous, EVERY 6 HOURS PRN, Starting on Tue09/25/21 at 1246, Until Discontinued, Anxiety LORazepam (ATIVAN) injection 2 mg (CANCELED) 2 mg, IntraVENous, EVERY 1 HOUR PRN (WITHDRAWAL), Starting on Stacy 09/24/21 at 0624, Until Tue09/25/21 at 0104, Withdrawal, For alcohol withdrawal., For CIWA score 11 to 15. If both oral and intravenous CIWA medications ordered, use intravenous if unable to tolerate oral equivalent. Reassess CIWA one hour after each dose of medication and as needed. 0638 (Given - Provider: Charo Mullins RN - Comment: CIWA 21)0802 (See Alternative - Provider: Jamey Thompson RN)1032 (See Alternative - Provider: Jamey Thompson RN)1213 (See Alternative - Provider: Jamey Thompson RN)1313 (See Alternative - Provider: Jamey Thompson RN)1415 (See Alternative - Provider: Yulisa Chapin RN)1631 (See Alternative - Provider: Jamey Thompson RN)1800 (Given - Provider: Jamey Thompson RN)1924 (Given - Provider: Jamey Thompson RN)2051 (Given - Provider: Charo Mullins RN)2200 (Given - Provider: Charo Mullins RN)2302 (Given - Provider: Cahro Mullins RN)2357 (Given - Provider: Abner Simpson RN - Comment: CIWA 24) 0103 (Given - Provider: Charo Mullins RN) LORazepam (ATIVAN) injection 2 mg (CANCELED) 2 mg, IntraVENous, EVERY 1 HOUR PRN (WITHDRAWAL), Starting on Tue09/25/21 at 0058, Until Tue09/25/21 at 1246, Withdrawal, For alcohol withdrawal., For CIWA score 11 to 15. If both oral and intravenous CIWA medications ordered, use intravenous if unable to tolerate oral equivalent. Reassess CIWA one hour after each dose of medication and as needed. 0209 (See Alternative - Provider: Charo Mullins RN)0324 (See Alternative - Provider: Charo Mullins RN)0328 (Given - Provider: Charo Mullins RN)0616 (See Alternative - Provider: Charo Mullins RN)0856 (Given - Provider: Raiza Jiménez RN)1002 (See Alternative - Provider: Raiza Jiménez RN)1057 (See Alternative - Provider: Raiza Jiménez RN) LORazepam (ATIVAN) injection 2 mg 2 mg, IntraVENous, EVERY 6 HOURS PRN, Starting on Tue09/25/21 at 1245, Until Discontinued, Agitation 1816 (Given - Provider: Raiza Jiménez RN) 0957 (Given - Provider: Prerna Contreras RN) LORazepam (ATIVAN) injection 4 mg (CANCELED) 4 mg, IntraVENous, EVERY 1 HOUR PRN (WITHDRAWAL), Starting on Tue09/25/21 at 0058, Until Tue09/25/21 at 1246, Withdrawal, For alcohol withdrawal., For CIWA score greater than 20. If both oral and intravenous CIWA medications ordered, use intravenous if unable to tolerate oral equivalent. Reassess CIWA one hour after each dose of medication and as needed. 0209 (Given - Provider: Charo Mullins RN)0324 (See Alternative - Provider: Charo Mullins RN)0328 (See Alternative - Provider: Charo Mullins RN)0616 (Given - Provider: Charo Mullins RN)0856 (See Alternative - Provider: Raiza Jiménez RN)1002 (Given - Provider: Raiza Jiménez RN)1057 (Given - Provider: Raiza Jiménez RN) LORazepam (ATIVAN) tablet 1 mg 1 mg, Oral, EVERY 6 HOURS PRN, Starting on 09/26/21 at 1053, Until Discontinued, Anxiety LORazepam (ATIVAN) tablet 2 mg (CANCELED) 2 mg, Oral, EVERY 1 HOUR PRN (WITHDRAWAL), Starting on Stacy 09/24/21 at 0624, Until Tue09/25/21 at 0104, For alcohol withdrawal., For CIWA score 11 to 15. Reassess CIWA one hour after each dose of medication and as needed. 0638 (See Alternative - Provider: Charo Mullins RN)0802 (Given - Provider: Jamey Thompson RN)1032 (Given - Provider: Jamey Thompson RN)1213 (Given - Provider: Jamey Thompson RN)1313 (Given - Provider: Jamey Thompson RN)1415 (Given - Provider: Yulisa Chapin RN)1631 (Given - Provider: Jamey Thompson RN)1800 (See Alternative - Provider: Jamey Thompson RN)1924 (See Alternative - Provider: Jamey Thompson RN)2051 (See Alternative - Provider: Charo Mullins RN)2200 (See Alternative - Provider: Charo Mullins RN)2302 (See Alternative - Provider: Charo Mullins RN)2357 (See Alternative - Provider: Abner Simpson RN) 0103 (See Alternative - Provider: Charo Mullins RN) oxyCODONE-acetaminophen (PERCOCET) 5-325 MG per tablet 2 tablet Mg/kg dosing is based on the oxycodone component., 2 tablet, Oral, EVERY 6 HOURS PRN, Starting on 09/25/21 at 1311, Until Discontinued, Pain 4-10 and/or signs of opiate w/drawal, Maximum dose of acetaminophen is 4000 mg from all sources in 24 hours. 1429 (Given - Provider: Raiza Jiménez RN)2014 (Given - Provider: Abner Simpson RN) 003 (Given - Provider: Abner Simpson RN - Comment: ok to give dose early per CCU team)0619 (Given - Provider: Abner Simpson RN)1249 (Given - Provider: Prerna Contreras, DESIREE) traZODone (DESYREL) tablet 25 mg 25 mg, Oral, NIGHTLY PRN, Starting on Tue09/25/21 at 2100, Until Discontinued, Sleep 2115 (Given - Provider: Abner Simpson RN) Scheduled Medication Order 07/26/2022 07/27/2022 07/28/2022 ketorolac (Toradol) injection 15 mg (COMPLETED) 15 mg, IntraVENous, Once, On Tue07/28/22 at 2145, For 1 dose 2150 (Given - Provid er: Subha Mcallister RN) LORazepam (Ativan) injection 1 mg (COMPLETED) 1 mg, IntraVENous, Once, On Tue07/28/22 at 214, For 1 dose, For IV doses dilute dose with 1ml NS. 2150 (Given - Provid er: Subha Mcallister RN) magnesium sulfate IVPB premix 2,000 mg (COMPLETED) 2,000 mg, IntraVENous, at 25 mL/hr, Administer over 2 Hours, Once, On Tue07/28/22 at 2155, For 1 dose, Recommended infusion rate not to exceed 1,000 mg (milligrams) per hour. 2158 (New Bag - Prov ider: Subha Mcallister RN)2304 (Stopped - Provider: Subha Mcallister, DESIREE) potassium chloride (Klor-Con) packet 20 mEq (COMPLETED) 20 mEq, Oral, Once, On Tue07/28/22 at 2235, For 1 dose, Dissolve each packet in 4 ounces of water = 5 mEq per 1 oz fluid. 2239 (Given - Provid er: Subha Mcallister RN) sodium chloride 0.9 % bolus 500 mL (COMPLETED) 500 mL, IntraVENous, at 500 mL/hr, Administer over 1 Hours, Once, On Tue07/28/22 at 214, For 1 dose 2150 (New Bag - Prov ider: Subha Mcallister RN)2250 (Stopped - Provider: Subha Mcallister RN) Scheduled Medication Order 08/04/2022 08/05/2022 08/06/2022 cyclobenzaprine (Flexeril) tablet 10 mg (COMPLETED) 10 mg, Oral, Once, On Tue08/06/22 at 0025, For 1 dose 0046 (Given - Provid er: Melani Fraire RN) ketorolac (Toradol) injection 15 mg (COMPLETED) 15 mg, IntraVENous, Once, On Tue08/06/22 at 0020, For 1 dose 0046 (Given - Provid er: Melani Fraire RN) Scheduled Medication Order 08/24/2022 08/25/2022 08/26/2022 aspirin chewable tablet 81 mg 81 mg, Oral, Daily, First dose on Tue08/26/22 at 1920 1920 (Canceled Entry - Provider: Automatic Discharge Provider - Comment: Automatically canceled at discontinue of medication order) baclofen (Lioresal) tablet 10 mg 10 mg, Oral, 3 times daily, First dose on Tue08/26/22 at 1635 1635 (Canceled Entry - Provider: Automatic Discharge Provider - Comment: Automatically canceled at discontinue of medication order)2100 (Canceled Entry - Provider: Automatic Discharge Provider - Comment: Automatically canceled at discontinue of medication order) cloNIDine (Catapres) tablet 0.1 mg 0.1 mg, Oral, Every 8 hours, First dose on Tue08/26/22 at 1635, Hold for a systolic bp og 90 or below 1918 (Given - Provid er: Sera Larose RN) folic acid (Folvite) tablet 1 mg 1 mg, Oral, Daily, First dose on Tue08/26/22 at 1635 1726 (Given - Provid er: Sera Larose RN) gabapentin (Neurontin) capsule 300 mg 300 mg, Oral, Every 8 hours, First dose on Tue08/26/22 at 1635, Hold for excessive sedation 1635 (Canceled Entry - Provider: Automatic Discharge Provider - Comment: Automatically canceled at discontinue of medication order) HYDROmorphone (Dilaudid) injection 1 mg (COMPLETED) 1 mg, IntraVENous, Once, On Stacy 08/26/22 at 1255, For 1 dose, If oral and IV narcotics ordered, use oral first and only use IV if oral is ineffective or cannot take oral. Do Not give oral and IV within 1 hour of each other unless specifically ordered. 1255 (Given - Provid er: Deborah Thomson RN) LORazepam (Ativan) injection 1 mg (COMPLETED) 1 mg, IntraVENous, Once, On Stacy 08/26/22 at 1405, For 1 dose, For IV doses dilute dose with 1ml NS. 1407 (Given - Provid er: Deborah Thomson RN) LORazepam (Ativan) injection 2 mg (COMPLETED) 2 mg, IntraVENous, Once, On Stacy 08/26/22 at 0910, For 1 dose, For IV doses dilute dose with 1ml NS. 0942 (Given - Provid er: Sera Larose RN) PHENobarbital (Luminal) tablet 97.2 mg 97.2 mg, Oral, 2 times daily, First dose on Stacy 08/26/22 at 1025 1038 (Given - Provid er: Sera Larose RN)2100 (Canceled Entry - Provider: Automatic Discharge Provider - Comment: Automatically canceled at discontinue of medication order) PHENobarbital (Luminal) tablet 97.2 mg 97.2 mg, Oral, Every 4 hours, First dose on Stacy 08/26/22 at 1635 1726 (Given - Provid er: Sera Larose RN)2035 (Canceled Entry - Provider: Automatic Discharge Provider - Comment: Automatically canceled at discontinue of medication order) sodium chloride 0.9 % bolus 1,000 mL (COMPLETED) 1,000 mL, IntraVENous, at 1,000 mL/hr, Administer over 1 Hours, Once, On Stacy 08/26/22 at 0910, For 1 dose 0940 (New Bag - Prov ider: Carmelita Tripathi)1040 (Stopped - Provider: Sera Larose RN) Thiamine Mononitrate (Vitamin B1) tablet 100 mg 100 mg, Oral, 3 times daily, First dose on Stacy 08/26/22 at 1635 1726 (Given - Provid er: Sera Larose RN)2100 (Canceled Entry - Provider: Automatic Discharge Provider - Comment: Automatically canceled at discontinue of medication order) traZODone (Desyrel) tablet 100 mg 100 mg, Oral, Nightly, First dose on Stacy 08/26/22 at 2100 2100 (Canceled Entry - Provider: Automatic Discharge Provider - Comment: Automatically canceled at discontinue of medication order) PRN Medication Order 08/24/2022 08/25/2022 08/26/2022 dicyclomine (Bentyl) tablet 10 mg 10 mg, Oral, 3 times daily PRN, colic, Starting on Stacy 08/26/22 at 1630 hydrOXYzine pamoate (Vistaril) capsule 50 mg 50 mg, Oral, Every 6 hours PRN, anxiety, Starting on Stacy 08/26/22 at 1630 ibuprofen tablet 600 mg 600 mg, Oral, Every 6 hours PRN, moderate pain (4-6), headaches, Starting on Stacy 08/26/22 at 1630 methocarbamol (Robaxin) tablet 1,000 mg 1,000 mg, Oral, Every 6 hours PRN, muscle spasms, Starting on Stacy 08/26/22 at 1630 ondansetron (Zofran) tablet 4 mg 4 mg, Oral, Every 6 hours PRN, nausea, vomiting, Starting on Stacy 08/26/22 at 1630 PHENobarbital (Luminal) injection 65 mg 65 mg, IntraVENous, Every 6 hours PRN, ciwa of 12 or above, please notify ADM cotton program technician if need 3 consequetive doses, Starting on Stacy 08/26/22 at 1630, Administer no faster than 1 mg/kg/minute, to a max of 60 mg/min in adults. senna-docusate sodium (Senokot-S) 8.6-50 MG tablet 2 tablet 2 tablet, Oral, Daily PRN, constipation, Starting on Stacy 08/26/22 at 1630 Scheduled Medication Order 09/14/2022 09/15/2022 09/16/2022 Acetaminophen (Tylenol) 650 MG/20.3ML solution 1,000 mg(Linked Group 1) 1,000 mg, Per G Tube, Every 8 hours, First dose on Stacy 09/16/22 at 1200 1426 (See Alternativ e - Provider: Kristin Lange RN) acetaminophen (Tylenol) tablet 1,000 mg(Linked Group 1) 1,000 mg, Oral, Every 8 hours, First dose on Stacy 09/16/22 at 1200, Maximum dose of acetaminophen is 4000 mg from all sources in 24 hours. 1426 (Given - Provid er: Kristin Lange RN - Comment: pt now awake, ok to give per Dr. Ena) aspirin EC tablet 81 mg 81 mg, Oral, Daily, First dose on Stacy 09/16/22 at 1200, Do not crush, chew, or split. 1426 (Given - Provid er: Kristin Lange RN - Comment: pt now awake, ok to give per Dr. Sutherland) cefTRIAXone (Rocephin) 1,000 mg in sodium chloride 0.9 % 50 mL IVPB Mini-Bag Plus (COMPLETED) 1,000 mg, IntraVENous, at 100 mL/hr, Administer over 30 Minutes, Once, On Stacy 09/16/22 at 0255, For 1 dose, Mini-Bag Plus bag, Suspected Indication (Select all that apply): Pneumonia (CAP) 0304 (New Bag - Prov ider: Subha Mcallister RN)0342 (Stopped - Provider: Subha Mcallister RN) cefTRIAXone (Rocephin) 2,000 mg in sodium chloride 0.9 % 50 mL IVPB Mini-Bag Plus 2,000 mg, IntraVENous, at 100 mL/hr, Administer over 30 Minutes, Every 24 hours, First dose on Stacy 09/16/22 at 1500, Mini-Bag Plus bag, Suspected Indication (Select all that apply): Pneumonia (CAP) 1435 (New Bag - Prov ider: Kristin Lange RN)1505 (Stopped - Provider: Kristin Lange RN) doxycycline (Vibramycin) 100 mg in sodium chloride 0.9 % 100 mL IVPB (CANCELED) 100 mg, IntraVENous, at 100 mL/hr, Administer over 60 Minutes, Every 12 hours, First dose on Stacy 09/16/22 at 0255, Mini-Bag Plus bag, Suspected Indication (Select all that apply): Pneumonia (CAP) 0304 (Given - Provid er: Subha Mcallister RN) doxycycline (Vibramycin) 100 mg in sodium chloride 0.9 % 100 mL IVPB 100 mg, IntraVENous, at 100 mL/hr, Administer over 60 Minutes, Every 12 hours, First dose on Stacy 09/16/22 at 1700, Mini-Bag Plus bag, Suspected Indication (Select all that apply): Pneumonia (CAP) 1700 (Canceled Entry - Provider: Automatic Discharge Provider - Comment: Automatically canceled at discontinue of medication order) enoxaparin (Lovenox) syringe 40 mg 40 mg, SubCUTAneous, Every 24 hours scheduled (Daily), First dose on Stacy 09/16/22 at 1200, Indication of Use: Prophylaxis-DVT/PE, Indications: Prophylaxis of Venous Thromboembolism 1218 (Given - Provid er: Kristin Lange RN) folic acid 1 mg in dextrose 5 % 50 mL IVPB (COMPLETED) 1 mg, IntraVENous, at 100 mL/hr, Administer over 30 Minutes, Once, On Stacy 09/16/22 at 1200, For 1 dose 1218 (New Bag - Prov ider: Kristin Lange RN)1248 (Stopped - Provider: Kristin Lange RN) ipratropium-albuterol (Duo-Neb) 0.5-2.5 mg/3 mL nebulizer solution 3 mL (COMPLETED) 3 mL, Nebulization, Once, On Stacy 09/16/22 at 0100, For 1 dose 0106 (Given - Provid er: Subha Mcallister RN) ipratropium-albuterol (Duo-Neb) 0.5-2.5 mg/3 mL nebulizer solution 6 mL (COMPLETED) 6 mL, Nebulization, Once, On Stacy 09/16/22 at 0200, For 1 dose 0159 (Given - Provid er: Subha Mcallister RN) ketorolac (Toradol) injection 15 mg (COMPLETED) 15 mg, IntraVENous, Once, On Stacy 09/16/22 at 0200, For 1 dose 0205 (Given - Provid er: Subha Mcallister RN) LORazepam (Ativan) injection 1 mg (COMPLETED) 1 mg, IntraVENous, Once, On Stacy 09/16/22 at 0100, For 1 dose, For IV doses dilute dose with 1ml NS. 0106 (Given - Provid er: Subha Mcallister RN) methylPREDNISolone sodium succinate (PF) (SOLU-Medrol) injection 125 mg (COMPLETED) 125 mg, IntraVENous, Once, On Stacy 09/16/22 at 0200, For 1 dose 0159 (Given - Provid er: Subha Mcallister RN) PHENobarbital (Luminal) injection 100 mg (COMPLETED) 100 mg, IntraVENous, Once, On Stacy 09/16/22 at 0700, For 1 dose, Administer no faster than 1 mg/kg/minute, to a max of 60 mg/min in adults. 07 (Given - Provid er: Salina Ahuja RN) potassium chloride CR (Klor-Con M20) ER tablet 40 mEq (COMPLETED) 40 mEq, Oral, Once, On Stacy 09/16/22 at 0325, For 1 dose, Best given with food and plenty of water to minimize gastric irritation. Do not crush or chew. 0332 (Given - Provid er: Subha Mcallister, DESIREE) thiamine (Vitamin B1) injection 100 mg 100 mg, IntraVENous, Daily, First dose on Stacy 09/16/22 at 1200 1218 (Given - Provid er: Kristin Lange RN) ticagrelor (Brilinta) tablet 90 mg 90 mg, Oral, 2 times daily, First dose on Stacy 09/16/22 at 1200 1426 (Given - Provid er: Kristin Lange RN - Comment: pt now awake, ok to give per Dr. Sutherland) Continuous Medication Order 09/14/2022 09/15/2022 09/16/2022 dexmedeTOMIDine in NS (Precedex) 400 mcg in 100 mL (4 mcg/mL) infusion 0.1-1.5 mcg/kg/hr 90.7 kg (2.2675-34.0125 mL/hr, rounded to 2.27-34.01 mL/hr), IntraVENous, Continuous, Starting on Stacy 09/16/22 at 1100, If Titrate Infusion? is No: Disregard instructions below. If Titrate infusion? is Yes: Titrate in increments of 0.2 mcg/kg/hr no more frequently than every 30 minutes to goal of therapy. If after titration rate change patient exhibits adverse hemodynamic response, next titration rate change may be adjusted by one-half of the previous rate change. If patient fails sedation interruption, resume dexmedetomidine infusion at 50% of previous rate. , Titrate Infusion? Yes, Initial Infusion Dose: 0.2 mcg/kg/hr, Goal of Therapy: RASS of -1 to 0, Contact Provider if: New onset HR less than 50 bpm, New onset SBP less than 90 mmHg, Patient is receiving maximum dose and is not achieving the goal of therapy 1100 (Not Given - Pr ovider: Kristin Lange RN - Reason: Other - Comment: per Dr. Sutherland, give other meds first)1255 (New Bag - Provider: Kristin Lange RN)1450 (Rate/Dose Change - Provider: Kristin Lange RN - Comment: per Dr. Sutherland, increase dose at this time)1520 (Rate/Dose Change - Provider: Kristin Lange RN)1555 (Stopped - Provider: Kristin Lange RN - Comment: pt leaving AMA) PRN Medication Order 09/14/2022 09/15/2022 09/16/2022 ipratropium-albuterol (Duo-Neb) 0.5-2.5 mg/3 mL nebulizer solution 3 mL 3 mL, Nebulization, 4 times daily PRN, wheezing, shortness of breath, Starting on Stacy 09/16/22 at 1055 LORazepam (Ativan) injection 1 mg(Linked Group 2) 1 mg, IntraVENous, Every 1 hour PRN, withdrawal, For alcohol withdrawal, Starting on Stacy 09/16/22 at 1045, For CIWA score 8 to 10. If both oral and intravenous CIWA medications ordered, use intravenous if unable to tolerate oral equivalent. Reassess CIWA one hour after each dose of medication and as needed. For IV doses dilute dose with 1ml NS. 1105 (See Alternativ e - Provider: Kristin Lange RN)1511 (See Alternative - Provider: Kristin Lange RN) LORazepam (Ativan) injection 2 mg (CANCELED) 2 mg, IntraVENous, Every 1 hour PRN, withdrawal, For alcohol withdrawal., Starting on Stacy 09/16/22 at 0309, For CIWA score 11 to 15. If both oral and intravenous CIWA medications ordered, use intravenous if unable to tolerate oral equivalent. Reassess CIWA one hour after each dose of medication and as needed. For IV doses dilute dose with 1ml NS. 0314 (Given - Provid er: Subha Mcallister RN)0538 (See Alternative - Provider: Subha Mcallister RN)0629 (Given - Provider: Subha Mcallister RN - Comment: CIWA Score 15)0731 (See Alternative - Provider: Salina Ahuja RN)0920 (See Alternative - Provider: Vinod Rios RN) LORazepam (Ativan) injection 2 mg(Linked Group 2) 2 mg, IntraVENous, Every 1 hour PRN, withdrawal, For alcohol withdrawal., Starting on Stacy 09/16/22 at 1045, For CIWA score 11 to 15. If both oral and intravenous CIWA medications ordered, use intravenous if unable to tolerate oral equivalent. Reassess CIWA one hour after each dose of medication and as needed. For IV doses dilute dose with 1ml NS. 1105 (See Alternativ e - Provider: Kristin Lange RN)1511 (Given - Provider: Kristin Lange RN) LORazepam (Ativan) injection 3 mg (CANCELED) 3 mg, IntraVENous, Every 1 hour PRN, withdrawal, For alcohol withdrawal, Starting on Stacy 09/16/22 at 0309, For CIWA score 16 to 20. If both oral and intravenous CIWA medications ordered, use intravenous if unable to tolerate oral equivalent. Reassess CIWA one hour after each dose of medication and as needed. For IV doses dilute dose with 1ml NS. 0314 (See Alternativ e - Provider: Subha Mcallister RN)0538 (See Alternative - Provider: Subha Mcallister RN)0629 (See Alternative - Provider: Subha Mcallister RN)0731 (See Alternative - Provider: Salina Ahuja RN)0920 (Given - Provider: Vinod Rios RN - Comment: ciwa 19) LORazepam (Ativan) injection 3 mg(Linked Group 2) 3 mg, IntraVENous, Every 1 hour PRN, withdrawal, For alcohol withdrawal, Starting on Stacy 09/16/22 at 1045, For CIWA score 16 to 20. If both oral and intravenous CIWA medications ordered, use intravenous if unable to tolerate oral equivalent. Reassess CIWA one hour after each dose of medication and as needed. For IV doses dilute dose with 1ml NS. 1105 (See Alternativ e - Provider: Kristin Lange RN)1511 (See Alternative - Provider: Kristin Lange RN) LORazepam (Ativan) injection 4 mg(Linked Group 2) 4 mg, IntraVENous, Every 1 hour PRN, withdrawal, For alcohol withdrawal, Starting on Stacy 09/16/22 at 1045, For CIWA score greater than 20. If both oral and intravenous CIWA medications ordered, use intravenous if unable to tolerate oral equivalent. Reassess CIWA one hour after each dose of medication and as needed. For IV doses dilute dose with 1ml NS. 1105 (Given - Provid er: Kristin Lange RN)1511 (See Alternative - Provider: Kristin Lange RN) LORazepam (Ativan) tablet 1 mg (CANCELED) 1 mg, Oral, Every 1 hour PRN, other, For alcohol withdrawal, Starting on Stacy 09/16/22 at 0309, For CIWA score 8 to 10. Reassess CIWA one hour after each dose of medication and as needed. 0314 (See Alternativ e - Provider: Subha Mcallister RN)0538 (Given - Provider: Subha Mcallister RN)0629 (See Alternative - Provider: Subha Mcallister RN)0731 (See Alternative - Provider: Salina Ahuja RN)0920 (See Alternative - Provider: Vinod Rios, DESIREE) LORazepam (Ativan) tablet 1 mg(Linked Group 2) 1 mg, Oral, Every 1 hour PRN, other, For alcohol withdrawal, Starting on Stacy 09/16/22 at 1045, For CIWA score 8 to 10. Reassess CIWA one hour after each dose of medication and as needed. 1105 (See Alternativ e - Provider: Kristin Lange RN)1511 (See Alternative - Provider: Kristin Lange RN) LORazepam (Ativan) tablet 2 mg (CANCELED) 2 mg, Oral, Every 1 hour PRN, other, For alcohol withdrawal, Starting on Stacy 09/16/22 at 0309, For CIWA score 11 to 15. Reassess CIWA one hour after each dose of medication and as needed. 0314 (See Alternativ e - Provider: Subha Mcallister RN)0538 (See Alternative - Provider: Subha Mcallister RN)0629 (See Alternative - Provider: Subha Mcallister RN)0731 (Given - Provider: Salina Ahuja, DESIREE)0920 (See Alternative - Provider: Vinod Rios RN) LORazepam (Ativan) tablet 2 mg(Linked Group 2) 2 mg, Oral, Every 1 hour PRN, other, For alcohol withdrawal, Starting on Stacy 09/16/22 at 1045, For CIWA score 11 to 15. Reassess CIWA one hour after each dose of medication and as needed. 1105 (See Alternativ e - Provider: Kristin Lange RN)1511 (See Alternative - Provider: Kristin Lange RN) LORazepam (Ativan) tablet 3 mg(Linked Group 2) 3 mg, Oral, Every 1 hour PRN, other, For alcohol withdrawal, Starting on Stacy 6 at 1045, For CIWA score 16 to 20. Reassess CIWA one hour after each dose of medication and as needed. 1105 (See Alternativ e - Provider: Kristin Lange RN)1511 (See Alternative - Provider: Kristin Lange RN) LORazepam (Ativan) tablet 4 mg(Linked Group 2) 4 mg, Oral, Every 1 hour PRN, other, For alcohol withdrawal, Starting on Stacy 6 at 1045, For CIWA score greater than 20. Reassess CIWA one hour after each dose of medication and as needed. 1105 (See Alternativ e - Provider: Kristin Lange RN)1511 (See Alternative - Provider: Kristin Lange RN) ondansetron (Zofran) injection 4 mg(Linked Group 3) 4 mg, IntraVENous, Every 6 hours PRN, nausea, vomiting, Starting on Stacy 6 at 1045, 1st Line. Give IV if patient is unable to take orally. If inadequate response within 60 minutes, proceed to next-line agent or contact provider if no further options ordered. ondansetron ODT (Zofran-ODT) disintegrating tablet 4 mg(Linked Group 3) 4 mg, Oral, Every 8 hours PRN, nausea, vomiting, Starting on Stacy 09/16/22 at 1045, 1st Line. If inadequate response within 60 minutes, proceed to next-line agent or contact provider if no further options ordered. Patient should allow tablet to dissolve on tongue. Do not remove from blister pack until just before administering. polyethylene glycol (PEG) 3350 (Miralax) packet 17 g 17 g, Oral, Daily PRN, constipation, Starting on Stacy 09/16/22 at 1045, 1st line for treatment of constipation - give scheduled if no bowel movement in past 24 hours. Linked Groups Order Group 1: acetaminophen (Tylenol) tablet 1,000 mgJump to med 1,000 mg, Oral, Every 8 hours, First dose on Stacy 09/16/22 at 1200
Maximum dose of acetaminophen is 4000 mg from all sources in 24 hours.
Or Acetaminophen (Tylenol) 650 MG/20.3ML solution 1,000 mgJump to med 1,000 mg, Per G Tube, Every 8 hours, First dose on Stacy 09/16/22 at 1200 Group 2: LORazepam (Ativan) tablet 1 mgJump to med 1 mg, Oral, Every 1 hour PRN, other, For alcohol withdrawal, Starting on Stacy 09/16/22 at 1045
For CIWA score 8 to 10. Reassess CIWA one hour after each dose of medication and as needed.
Or LORazepam (Ativan) injection 1 mgJump to med 1 mg, IntraVENous, Every 1 hour PRN, withdrawal, For alcohol withdrawal, Starting on Stacy 09/16/22 at 1045
For CIWA score 8 to 10. If both oral and intravenous CIWA medications ordered, use intravenous if unable to tolerate oral equivalent. Reassess CIWA one hour after each dose of medication and as needed. For IV doses dilute dose with 1ml NS.
Or LORazepam (Ativan) tablet 2 mgJump to med 2 mg, Oral, Every 1 hour PRN, other, For alcohol withdrawal, Starting on Stacy 09/16/22 at 1045
For CIWA score 11 to 15. Reassess CIWA one hour after each dose of medication and as needed.
Or LORazepam (Ativan) injection 2 mgJump to med 2 mg, IntraVENous, Every 1 hour PRN, withdrawal, For alcohol withdrawal., Starting on Stacy 09/16/22 at 1045
For CIWA score 11 to 15. If both oral and intravenous CIWA medications ordered, use intravenous if unable to tolerate oral equivalent. Reassess CIWA one hour after each dose of medication and as needed. For IV doses dilute dose with 1ml NS.
Or LORazepam (Ativan) tablet 3 mgJump to med 3 mg, Oral, Every 1 hour PRN, other, For alcohol withdrawal, Starting on Stacy 09/16/22 at 1045
For CIWA score 16 to 20. Reassess CIWA one hour after each dose of medication and as needed.
Or LORazepam (Ativan) injection 3 mgJump to med 3 mg, IntraVENous, Every 1 hour PRN, withdrawal, For alcohol withdrawal, Starting on Stacy 09/16/22 at 1045
For CIWA score 16 to 20. If both oral and intravenous CIWA medications ordered, use intravenous if unable to tolerate oral equivalent. Reassess CIWA one hour after each dose of medication and as needed. For IV doses dilute dose with 1ml NS.
Or LORazepam (Ativan) tablet 4 mgJump to med 4 mg, Oral, Every 1 hour PRN, other, For alcohol withdrawal, Starting on Stacy 09/16/22 at 1045
For CIWA score greater than 20. Reassess CIWA one hour after each dose of medication and as needed.
Or LORazepam (Ativan) injection 4 mgJump to med 4 mg, IntraVENous, Every 1 hour PRN, withdrawal, For alcohol withdrawal, Starting on Stacy 09/16/22 at 1045
For CIWA score greater than 20. If both oral and intravenous CIWA medications ordered, use intravenous if unable to tolerate oral equivalent. Reassess CIWA one hour after each dose of medication and as needed. For IV doses dilute dose with 1ml NS.
Group 3: ondansetron ODT (Zofran-ODT) disintegrating tablet 4 mgJump to med 4 mg, Oral, Every 8 hours PRN, nausea, vomiting, Starting on Stacy 09/16/22 at 1045
1st Line. If inadequate response within 60 minutes, proceed to next-line agent or contact provider if no further options ordered. Patient should allow tablet to dissolve on tongue. Do not remove from blister pack until just before administering.
Or ondansetron (Zofran) injection 4 mgJump to med 4 mg, IntraVENous, Every 6 hours PRN, nausea, vomiting, Starting on Stacy 09/16/22 at 1045
1st Line. Give IV if patient is unable to take orally. If inadequate response within 60 minutes, proceed to next-line agent or contact provider if no further options ordered.
Scheduled Medication Order 09/17/2022 09/18/2022 09/19/2022 albuterol (2.5 MG/3ML) 0.083% nebulizer solution 2.5 mg 2.5 mg, Nebulization, Every 4 hours while awake, First dose on 09/18/22 at 2200, Initiate RT Bronchodilator Protocol: 2200 (Canceled Entry - Provider: Automatic Discharge Provider - Comment: Automatically canceled at discontinue of medication order) 0600 (Canceled Entry - Provider: Automatic Discharge Provider - Comment: Automatically canceled at discontinue of medication order) ampicillin-sulbactam (Unasyn) 3,000 mg in sodium chloride 0.9 % 100 mL IVPB (Mini-Bag Plus) 3,000 mg, IntraVENous, at 200 mL/hr, Administer over 30 Minutes, Every 6 hours, First dose on 09/18/22 at 2200, Mini-Bag Plus bag, Suspected Indication (Select all that apply): Pneumonia (CAP), Aspiration Pneumonia 2237 (New Bag - Provider: Carmelita Johnson RN)2307 (Stopped - Provider: Carmelita Johnson, DESIREE) 0400 (New Bag - Provider: Carmelita Johnson, DESIREE)0430 (Stopped - Provider: Carmelita Johnson, DESIREE) aspirin EC tablet 81 mg 81 mg, Oral, Daily, First dose on 09/19/22 at 0900, Do not crush, chew, or split. 0900 (Canceled Entry - Provider: Automatic Discharge Provider - Comment: Automatically canceled at discontinue of medication order) azithromycin (Zithromax) 500 mg in sodium chloride 0.9 % 250 mL IVPB (ADD-[place]) (COMPLETED) 500 mg, IntraVENous, Administer over 60 Minutes, Once, On 09/18/22 at 1655, For 1 dose, ADD-[place] bag, Suspected Indication (Select all that apply): Pneumonia (CAP) 192 (New Bag - Provider: Ruthy Salazar RN)2026 (Stopped - Provider: Carmelita Johnson, DESIREE) calcium gluconate 1000 mg in 100 mL IVPB premix (COMPLETED) 1,000 mg, IntraVENous, Administer over 1 Hours, Once, On 09/19/22 at 0530, For 1 dose, premix bag 0544 (Given - Provid er: Carmelita Johnson RN) carvedilol (Coreg) tablet 12.5 mg 12.5 mg, Oral, 2 times daily with meals, First dose on 09/18/22 at 2100 2238 (Given - Provider: Carmelita Johnson, RN) 0800 (Canceled Entry - Provider: Automatic Discharge Provider - Comment: Automatically canceled at discontinue of medication order) cefTRIAXone (Rocephin) 1,000 mg in sodium chloride 0.9 % 50 mL IVPB Mini-Bag Plus (COMPLETED) 1,000 mg, IntraVENous, at 100 mL/hr, Administer over 30 Minutes, Once, On 09/18/22 at 1655, For 1 dose, Mini-Bag Plus bag, Suspected Indication (Select all that apply): Pneumonia (CAP) 1812 (New Bag - Provider: Ruthy Salazar RN)185 (Stopped - Provider: Ruthy Salazar RN) doxycycline (Monodox) capsule 100 mg 100 mg, Oral, 2 times daily, First dose on 09/19/22 at 0900, Take with at least 8 ounces (large glass) of water, do not lie down for 30 minutes after, Suspected Indication (Select all that apply): Pneumonia (CAP) 0900 (Canceled Entry - Provider: Automatic Discharge Provider - Comment: Automatically canceled at discontinue of medication order) enoxaparin (Lovenox) syringe 40 mg 40 mg, SubCUTAneous, Every 24 hours scheduled (Daily), First dose on 09/18/22 at 2000, Indication of Use: Prophylaxis-DVT/PE, Indications: Prophylaxis of Venous Thromboembolism 2237 (Given - Provider: Carmelita Johnson, DESIREE) 0900 (Canceled Entry - Provider: Automatic Discharge Provider - Comment: Automatically canceled at discontinue of medication order) folic acid (Folvite) tablet 1 mg 1 mg, Oral, Daily, First dose on 09/18/22 at 1515 181 (Given - Provider: Ruthy Salazar RN) 0900 (Canceled Entry - Provider: Automatic Discharge Provider - Comment: Automatically canceled at discontinue of medication order) haloperidol lactate (Haldol) injection 2 mg (COMPLETED) 2 mg, IntraVENous, Once, On 09/18/22 at 1510, For 1 dose, IM route of administration preferred. Because of the risk of TdP and QT prolongation, ECG monitoring is recommended if haloperidol is given IV 181 (Given - Provider: Ruthy Salazra RN) ipratropium-albuterol (Duo-Neb) 0.5-2.5 mg/3 mL nebulizer solution 3 mL (COMPLETED) 3 mL, Nebulization, Once, On 09/18/22 at 1510, For 1 dose 1546 (Given - Provider: Chela Johnson CHECK SERVICES CLERK) Lidocaine 4 % patch 1 patch 1 patch, TransDERmal, Administer over 12 Hours, Once, On 09/19/22 at 0245, For 1 dose, Apply patch to low back. Patch may remain in place for up to 12 hours in any 24 hour period. 0238 (Medication Micah lied - Provider: Carmelita Johnson RN)0720 (Due: Medication Removed - Provider: Automatic Discharge Provider - Comment: Time automatically adjusted from order being discontinued) LORazepam (Ativan) injection 1 mg (COMPLETED) 1 mg, IntraVENous, Once, On 09/18/22 at 1510, For 1 dose, For IV doses dilute dose with 1ml NS. 181 (Given - Provider: Ruthy Salazar RN) methylPREDNISolone sod suc (PF) (SOLU-Medrol) 40 MG injection 40 mg(Linked Group 1) 40 mg, IntraVENous, Every 6 hours, First dose on 09/19/22 at 0000, For 48 hours 2318 (Given - Provider: Carmelita Johnson RN) 0544 (Given - Provider: Carmelita Johnson RN) methylPREDNISolone sodium succinate (PF) (SOLU-Medrol) injection 125 mg (COMPLETED) 125 mg, IntraVENous, Once, On 09/18/22 at 1510, For 1 dose 181 (Given - Provider: Ruthy Salazar RN) morphine sulfate (PF) injection 2 mg (COMPLETED) 2 mg, IntraVENous, Once, On 09/19/22 at 0245, For 1 dose, If oral and IV narcotics ordered, use oral first and only use IV if oral is ineffective or cannot take oral. Do Not give oral and IV within 1 hour of each other unless specifically ordered. 0238 (Given - Provid er: Carmelita Johnson RN) morphine sulfate (PF) injection 2 mg (COMPLETED) 2 mg, IntraVENous, Once, On 09/19/22 at 0630, For 1 dose, If oral and IV narcotics ordered, use oral first and only use IV if oral is ineffective or cannot take oral. Do Not give oral and IV within 1 hour of each other unless specifically ordered. 0625 (Given - Provid er: Carmelita Johnson RN) pantoprazole (ProtoNix) EC tablet 40 mg 40 mg, Oral, Daily before breakfast, First dose on 09/19/22 at 0700, Do not crush, chew, or split. 0700 (Not Given - Provider: Carmelita Johnson RN - Reason: Medication not available) PHENobarbital (Luminal) tablet 100 mg 100 mg, Oral, Every 6 hours, First dose on 09/18/22 at 2130 2238 (Given - Provider: Carmelita Johnson RN) 0239 (Given - Provider: Carmelita Johnson RN)0930 (Canceled Entry - Provider: Automatic Discharge Provider - Comment: Automatically canceled at discontinue of medication order) potassium chloride CR (Klor-Con M20) ER tablet 40 mEq (COMPLETED) 40 mEq, Oral, Once, On 09/18/22 at 1800, For 1 dose, Best given with food and plenty of water to minimize gastric irritation. Do not crush or chew. 1812 (Given - Provider: Ruthy Salazar RN) potassium chloride IVPB 10 mEq 10 mEq, IntraVENous, at 100 mL/hr, Administer over 1 Hours, Every 1 hour, First dose on 09/19/22 at 0630, For 4 doses, Total dose 40mEq 0545 (New Bag - Provider: Carmelita Johnson RN)0645 (Due: Stopped - Provider: Carmelita Johnson RN)0730 (Canceled Entry - Provider: Automatic Discharge Provider - Comment: Automatically canceled at discontinue of medication order)0830 (Canceled Entry - Provider: Automatic Discharge Provider - Comment: Automatically canceled at discontinue of medication order)0930 (Canceled Entry - Provider: Automatic Discharge Provider - Comment: Automatically canceled at discontinue of medication order) predniSONE (Deltasone) tablet 40 mg(Linked Group 1) 40 mg, Oral, Daily, First dose on Tue09/21/22 at 0800 sodium chloride 0.9% (NS) flush 10 mL 10 mL, IntraVENous, Every 12 hours scheduled (2 times per day), First dose on 09/18/22 at 2100 2125 (Given - Provider: Carmelita Johnson, DESIREE) 0900 (Canceled Entry - Provider: Automatic Discharge Provider - Comment: Automatically canceled at discontinue of medication order) Thiamine Mononitrate (Vitamin B1) tablet 100 mg 100 mg, Oral, Daily, First dose on 09/18/22 at 1515 1812 (Given - Provider: Ruthy Salazar RN) 0900 (Canceled Entry - Provider: Automatic Discharge Provider - Comment: Automatically canceled at discontinue of medication order) ticagrelor (Brilinta) tablet 90 mg 90 mg, Oral, 2 times daily, First dose on 09/18/22 at 2100 2238 (Given - Provider: Camrelita Johnson RN) 0900 (Canceled Entry - Provider: Automatic Discharge Provider - Comment: Automatically canceled at discontinue of medication order) PRN Medication Order 09/17/2022 09/18/2022 09/19/2022 acetaminophen (Tylenol) suppository 650 mg(Linked Group 2) 650 mg, Rectal, Every 6 hours PRN, mild pain (1-3), Fever GREATER than 100.4 F (38 C), Starting on 09/18/22 at 1955, Administer if oral route cannot be used. acetaminophen (Tylenol) tablet 650 mg(Linked Group 2) 650 mg, Oral, Every 6 hours PRN, mild pain (1-3), Fever GREATER than 100.4 F (38 C), Starting on 09/18/22 at 1955, Maximum dose of acetaminophen is 4000 mg from all sources in 24 hours. albuterol (2.5 MG/3ML) 0.083% nebulizer solution 2.5 mg 2.5 mg, Nebulization, Every 2 hour PRN, wheezing, Starting on 09/18/22 at 1955, Initiate RT Bronchodilator Protocol: LORazepam (Ativan) injection 1 mg(Linked Group 3) 1 mg, IntraVENous, Every 1 hour PRN, withdrawal, For alcohol withdrawal, Starting on 09/18/22 at 2044, For CIWA score 8 to 10. If both oral and intravenous CIWA medications ordered, use intravenous if unable to tolerate oral equivalent. Reassess CIWA one hour after each dose of medication and as needed. For IV doses dilute dose with 1ml NS. 2124 (See Alternative - Provider: Carmelita Johnson RN) 0022 (See Alternative - Provider: Carmelita Johnson RN)0418 (See Alternative - Provider: Carmelita Johnson RN)0544 (See Alternative - Provider: Carmelita Johnson RN)0701 (See Alternative - Provider: Carmelita Johnson RN) LORazepam (Ativan) injection 2 mg(Linked Group 3) 2 mg, IntraVENous, Every 1 hour PRN, withdrawal, For alcohol withdrawal., Starting on 09/18/22 at 2044, For CIWA score 11 to 15. If both oral and intravenous CIWA medications ordered, use intravenous if unable to tolerate oral equivalent. Reassess CIWA one hour after each dose of medication and as needed. For IV doses dilute dose with 1ml NS. 2124 (Given - Provider: Carmelita Johnson RN) 002 (Given - Provider: Carmelita Johnson RN)8 (Given - Provider: Carmelita Johnson RN)0544 (Given - Provider: Carmelita Johnson RN)0701 (See Alternative - Provider: Carmelita Johnson RN) LORazepam (Ativan) injection 3 mg(Linked Group 3) 3 mg, IntraVENous, Every 1 hour PRN, withdrawal, For alcohol withdrawal, Starting on 09/18/22 at 2044, For CIWA score 16 to 20. If both oral and intravenous CIWA medications ordered, use intravenous if unable to tolerate oral equivalent. Reassess CIWA one hour after each dose of medication and as needed. For IV doses dilute dose with 1ml NS. 5 (See Alternative - Provider: Carmelita Johnson RN) 0022 (See Alternative - Provider: Carmelita Johnson RN)0418 (See Alternative - Provider: Carmelita Johnson RN)0544 (See Alternative - Provider: Carmelita Johnson RN)0701 (See Alternative - Provider: Carmelita Johnson RN) LORazepam (Ativan) injection 4 mg(Linked Group 3) 4 mg, IntraVENous, Every 1 hour PRN, withdrawal, For alcohol withdrawal, Starting on 09/18/22 at 2045, For CIWA score greater than 20. If both oral and intravenous CIWA medications ordered, use intravenous if unable to tolerate oral equivalent. Reassess CIWA one hour after each dose of medication and as needed. For IV doses dilute dose with 1ml NS. 2124 (See Alternative - Provider: Carmelita Johnson RN) 21 (See Alternative - Provider: Carmelita Johnson RN)417 (See Alternative - Provider: Carmeltia Johnson RN)0544 (See Alternative - Provider: Carmelita Johnson RN)0701 (Given - Provider: Carmelita Johnson RN) LORazepam (Ativan) tablet 1 mg(Linked Group 3) 1 mg, Oral, Every 1 hour PRN, other, For alcohol withdrawal, Starting on 09/18/22 at 2045, For CIWA score 8 to 10. Reassess CIWA one hour after each dose of medication and as needed. 2124 (See Alternative - Provider: Carmelita Johnson RN) 002 (See Alternative - Provider: Carmelita Johnson RN)8 (See Alternative - Provider: Carmelita Johnson RN)0544 (See Alternative - Provider: Carmelita Johnson RN)0701 (See Alternative - Provider: Carmelita Johnson RN) LORazepam (Ativan) tablet 2 mg(Linked Group 3) 2 mg, Oral, Every 1 hour PRN, other, For alcohol withdrawal, Starting on 09/18/22 at 2045, For CIWA score 11 to 15. Reassess CIWA one hour after each dose of medication and as needed. 2124 (See Alternative - Provider: Carmelita Johnson RN) 0022 (See Alternative - Provider: Carmelita Johnson RN)0418 (See Alternative - Provider: Carmelita Johnson RN)0544 (See Alternative - Provider: Carmelita Johnson RN)0701 (See Alternative - Provider: Carmelita Johnson RN) LORazepam (Ativan) tablet 3 mg(Linked Group 3) 3 mg, Oral, Every 1 hour PRN, other, For alcohol withdrawal, Starting on 09/18/22 at 2045, For CIWA score 16 to 20. Reassess CIWA one hour after each dose of medication and as needed. 2124 (See Alternative - Provider: Carmelita Johnson RN) 0022 (See Alternative - Provider: Carmelita Johnson RN)0418 (See Alternative - Provider: Carmelita Johnson RN)0544 (See Alternative - Provider: Carmelita Johnson RN)0701 (See Alternative - Provider: Carmelita Johnson RN) LORazepam (Ativan) tablet 4 mg(Linked Group 3) 4 mg, Oral, Every 1 hour PRN, other, For alcohol withdrawal, Starting on 09/18/22 at 2045, For CIWA score greater than 20. Reassess CIWA one hour after each dose of medication and as needed. 2124 (See Alternative - Provider: Carmelita Johnson RN) 21 (See Alternative - Provider: Carmelita Johnson RN)0418 (See Alternative - Provider: Carmelita Johnson RN)0544 (See Alternative - Provider: Carmelita Johnson RN)0701 (See Alternative - Provider: Carmelita Johnson RN) ondansetron (Zofran) injection 4 mg(Linked Group 4) 4 mg, IntraVENous, Every 6 hours PRN, nausea, vomiting, Starting on 09/18/22 at 1955, 1st Line. Give IV if patient is unable to take orally. If inadequate response within 60 minutes, proceed to next-line agent or contact provider if no further options ordered. ondansetron ODT (Zofran-ODT) disintegrating tablet 4 mg(Linked Group 4) 4 mg, Oral, Every 8 hours PRN, nausea, vomiting, Starting on 09/18/22 at 1955, 1st Line. If inadequate response within 60 minutes, proceed to next-line agent or contact provider if no further options ordered. Patient should allow tablet to dissolve on tongue. Do not remove from blister pack until just before administering. polyethylene glycol (PEG) 3350 (Miralax) packet 17 g 17 g, Oral, Daily PRN, constipation, Starting on 09/18/22 at 1954, 1st line for treatment of constipation - give scheduled if no bowel movement in past 24 hours. sodium chloride 0.9 % infusion 5-250 mL/hr, IntraVENous, PRN, if patient receiving piggyback infusions and maintenance fluids are not ordered OR KVO fluids to protect IV site / prevent frequent line interruptions/ long duration, Starting on 09/18/22 at 1954, For piggyback infusion, administer at same rate as piggyback for a total of 25 mL. Enter 25 mL into dose field and piggyback rate into rate field of order. If piggyback is infusing at a rate less than 100 mL/hr, enter 25 mL into dose field and 100 mL/hr into rate field of order. For KVO fluids, enter rate of 20 mL/hr or less into rate field of order. sodium chloride 0.9% (NS) flush 10 mL 10 mL, IntraVENous, PRN, line care, Starting on 09/18/22 at 1954, After every IV line use Linked Groups Order Group 1: methylPREDNISolone sod suc (PF) (SOLU-Medrol) 40 MG injection 40 mgJump to med 40 mg, IntraVENous, Every 6 hours, First dose on Tue09/19/22 at 0000, For 48 hours Followed by predniSONE (Deltasone) tablet 40 mgJump to med 40 mg, Oral, Daily, First dose on Tue09/21/22 at 0800 Group 2: acetaminophen (Tylenol) tablet 650 mgJump to med 650 mg, Oral, Every 6 hours PRN, mild pain (1-3), Fever GREATER than 100.4 F (38 C), Starting on 09/18/22 at 5
Maximum dose of acetaminophen is 4000 mg from all sources in 24 hours.
Or acetaminophen (Tylenol) suppository 650 mgJump to med 650 mg, Rectal, Every 6 hours PRN, mild pain (1-3), Fever GREATER than 100.4 F (38 C), Starting on 09/18/22 at 5
Administer if oral route cannot be used.
Group 3: LORazepam (Ativan) tablet 1 mgJump to med 1 mg, Oral, Every 1 hour PRN, other, For alcohol withdrawal, Starting on 09/18/22 at 2044
For CIWA score 8 to 10. Reassess CIWA one hour after each dose of medication and as needed.
Or LORazepam (Ativan) injection 1 mgJump to med 1 mg, IntraVENous, Every 1 hour PRN, withdrawal, For alcohol withdrawal, Starting on 09/18/22 at 2044
For CIWA score 8 to 10. If both oral and intravenous CIWA medications ordered, use intravenous if unable to tolerate oral equivalent. Reassess CIWA one hour after each dose of medication and as needed. For IV doses dilute dose with 1ml NS.
Or LORazepam (Ativan) tablet 2 mgJump to med 2 mg, Oral, Every 1 hour PRN, other, For alcohol withdrawal, Starting on 09/18/22 at 2044
For CIWA score 11 to 15. Reassess CIWA one hour after each dose of medication and as needed.
Or LORazepam (Ativan) injection 2 mgJump to med 2 mg, IntraVENous, Every 1 hour PRN, withdrawal, For alcohol withdrawal., Starting on 09/18/22 at 2044
For CIWA score 11 to 15. If both oral and intravenous CIWA medications ordered, use intravenous if unable to tolerate oral equivalent. Reassess CIWA one hour after each dose of medication and as needed. For IV doses dilute dose with 1ml NS.
Or LORazepam (Ativan) tablet 3 mgJump to med 3 mg, Oral, Every 1 hour PRN, other, For alcohol withdrawal, Starting on 09/18/22 at 5
For CIWA score 16 to 20. Reassess CIWA one hour after each dose of medication and as needed.
Or LORazepam (Ativan) injection 3 mgJump to med 3 mg, IntraVENous, Every 1 hour PRN, withdrawal, For alcohol withdrawal, Starting on 09/18/22 at 5
For CIWA score 16 to 20. If both oral and intravenous CIWA medications ordered, use intravenous if unable to tolerate oral equivalent. Reassess CIWA one hour after each dose of medication and as needed. For IV doses dilute dose with 1ml NS.
Or LORazepam (Ativan) tablet 4 mgJump to med 4 mg, Oral, Every 1 hour PRN, other, For alcohol withdrawal, Starting on 09/18/22 at 2045
For CIWA score greater than 20. Reassess CIWA one hour after each dose of medication and as needed.
Or LORazepam (Ativan) injection 4 mgJump to med 4 mg, IntraVENous, Every 1 hour PRN, withdrawal, For alcohol withdrawal, Starting on 09/18/22 at 5
For CIWA score greater than 20. If both oral and intravenous CIWA medications ordered, use intravenous if unable to tolerate oral equivalent. Reassess CIWA one hour after each dose of medication and as needed. For IV doses dilute dose with 1ml NS.
Group 4: ondansetron ODT (Zofran-ODT) disintegrating tablet 4 mgJump to med 4 mg, Oral, Every 8 hours PRN, nausea, vomiting, Starting on 09/18/22 at 1955
1st Line. If inadequate response within 60 minutes, proceed to next-line agent or contact provider if no further options ordered. Patient should allow tablet to dissolve on tongue. Do not remove from blister pack until just before administering.
Or ondansetron (Zofran) injection 4 mgJump to med 4 mg, IntraVENous, Every 6 hours PRN, nausea, vomiting, Starting on 09/18/22 at 1955
1st Line. Give IV if patient is unable to take orally. If inadequate response within 60 minutes, proceed to next-line agent or contact provider if no further options ordered.
Scheduled Medication Order 02/01/2023 02/02/2023 02/03/2023 amoxicillin-clavulanate (Augmentin) 875-125 MG per tablet 1 tablet 1 tablet (875 mg), Oral, Every 12 hours scheduled (2 times per day), First dose (after last modification) on Tue02/02/23 at 1000, For 3 days, Suspected Indication (Select all that apply): Pneumonia (CAP) 1208 (Given - Provider: Nieves Allen RN)2110 (Given - Provider: Yoanna Ibarra RN) 0931 (Given - Provider: Pieter Miranda, RN) aspirin EC tablet 81 mg 81 mg, Oral, Daily, First dose on Tue01/30/23 at 0900, Do not crush, chew, or split. 0951 (Given - Provider: Nieves Allen RN) 0906 (Given - Provider: Nieves Allen RN) 0931 (Given - Provider: Pieter Miranda, DESIREE) cefTRIAXone (Rocephin) 2,000 mg in sodium chloride 0.9 % 50 mL IVPB Mini-Bag Plus (CANCELED) 2,000 mg, IntraVENous, at 100 mL/hr, Administer over 30 Minutes, Every 24 hours, First dose on Tue01/31/23 at 1400, Mini-Bag Plus bag, Suspected Indication (Select all that apply): Pneumonia (CAP) 1537 (New Bag - Provider: Nieves Allen RN)1607 (Stopped - Provider: Nieves Allen RN) enoxaparin (Lovenox) syringe 40 mg 40 mg, SubCUTAneous, Every 24 hours, First dose on Tue01/30/23 at 0900, Indication of Use: Prophylaxis-DVT/PE, Indications: Prophylaxis of Venous Thromboembolism 0951 (Given - Provider: Nieves Allen RN) 0902 (Given - Provider: Nieves Allen RN) 0932 (Not Given - Provider: Pieter Miranda, DESIREE - Reason: Patient/family refused) furosemide (Lasix) injection 40 mg (COMPLETED) 40 mg, IntraVENous, Once, On Tue02/02/23 at 0930, For 1 dose 1008 (Given - Provider: Nieves Allen RN) gabapentin (Neurontin) capsule 300 mg 300 mg, Oral, Every 8 hours scheduled (3 times per day), First dose on Tue01/30/23 at 1400 0628 (Given - Provider: Jonatan Dang RN)1359 (Given - Provider: Nieves Allen RN)2105 (Given - Provider: Tyson Brock RN) 0543 (Given - Provider: Tyson Brock RN)1325 (Given - Provider: Nieves Allen RN)2110 (Given - Provider: Yoanna Ibarra, DESIREE) 0523 (Given - Provider: Yoanna Ibarra, DESIREE)1400 (Canceled Entry - Provider: Automatic Discharge Provider - Comment: Automatically canceled at discontinue of medication order) influenza vac subunit quadrivalent (Flucelvax) injection 0.5 mL 0.5 mL, IntraMUSCular, Prior to discharge, Starting on 01/30/23 at 0900, For 1 dose ipratropium-albuterol (Duo-Neb) 0.5-2.5 mg/3 mL nebulizer solution 3 mL (CANCELED) 3 mL, Nebulization, Every 4 hours RT, First dose on 01/29/23 at 2200 0009 (Given - Provider: Lalito Herrera RCP)0416 (Given - Provider: Lalito Herrera RCP)0804 (Given - Provider: Naila Miller RCP)1216 (Given - Provider: Naila Miller RCP)1620 (Given - Provider: Naila Miller RCP)2115 (Given - Provider: Du Dodge, [employer]) 0000 (Due - Provider: Nayely Nye RCP)0400 (Due - Provider: Nayely Nye RCP)0913 (Given - Provider: Yin Ordoñez RCP)1233 (Given - Provider: Yin Ordoñez RCP)1640 (Given - Provider: Yin Ordoñez RCP)2019 (Given - Provider: Serena Jacobo RCP)2341 (Given - Provider: Serena Jacobo RCP) 0448 (Given - Provider: Serena Jacobo RCP)0852 (Given - Provider: Sylvia Angeles RCP) ipratropium-albuterol (Duo-Neb) 0.5-2.5 mg/3 mL nebulizer solution 3 mL 3 mL, Nebulization, 3 times daily, First dose (after last modification) on Stacy 02/03/23 at 1400 1247 (Given - Provider: Sylvia Angeles RCP) methadone (Dolophine) 10 MG/ML solution 125 mg (COMPLETED)(Linked Group 1) 125 mg, Oral, Daily, First dose on Tue02/02/23 at 0715, For 1 dose 0738 (Given - Provider: Nieves Allen, DESIREE) methadone (Dolophine) 10 MG/ML solution 125 mg (COMPLETED) 125 mg, Oral, Once, On Tue02/03/23 at 1100, For 1 dose, Dose verified with Kelly from [facility] - Last outpatient dose: 125mg oral methadone given on 01/29 with one take-home dose for 01/30. 1140 (Given - Provider: Pieter Miranda, DESIREE) methadone (Dolophine) 10 MG/ML solution 62 mg (COMPLETED)(Linked Group 1) 62 mg, Oral, Once, On Tue02/01/23 at 1245, For 1 dose 1401 (Given - Provider: Nieves Allen RN) methylPREDNISolone sodium succinate (PF) (SOLU-Medrol) injection 125 mg (CANCELED) 125 mg, IntraVENous, Every 8 hours, First dose (after last modification) on Tue01/30/23 at 1345 0627 (Given - Provider: Jonatan Dang RN)1358 (Given - Provider: Nieves Allen RN)2052 (Given - Provider: Tyson Brock, RN) 0544 (Given - Provider: Tyson Brock, RN) nicotine (Nicoderm, Step 1) 21 MG/24HR patch 1 patch(Linked Group 2) 1 patch, TransDERmal, Administer over 24 Hours, Daily, First dose on 01/30/23 at 0900, For 42 days 0859 (Medication Removed - Provider: Nieves Allen RN)0951 (Medication Applied - Provider: Nieves Allen RN) 0840 (Medication Removed - Provider: Nieves Allen RN)0902 (Medication Applied - Provider: Nieves Allen RN) 0859 (Medication Removed - Provider: Pieter Miranda, DESIREE - Comment: patch was not on)0931 (Not Given - Provider: Pieter Miranda, DESIREE - Reason: Patient/family refused) nicotine (Nicoderm, Step 2) 14 MG/24HR patch 1 patch(Linked Group 2) 1 patch, TransDERmal, Administer over 24 Hours, Daily, First dose on 03/13/23 at 0900, For 14 days nicotine (Nicoderm, Step 3) 7 MG/24HR patch 1 patch(Linked Group 2) 1 patch, TransDERmal, Administer over 24 Hours, Daily, First dose on 03/27/23 at 0900, For 14 days pantoprazole (ProtoNix) EC tablet 40 mg 40 mg, Oral, Every morning, First dose on 01/30/23 at 0900, Do not crush, chew, or split. 0951 (Given - Provider: Nieves Allen RN) 0906 (Given - Provider: Nieves Allen RN) 0931 (Given - Provider: Pieter Miranda, DESIREE) polyethylene glycol (PEG) 3350 (Miralax) packet 17 g 17 g, Oral, Daily, First dose on Tue02/02/23 at 0945 1008 (Given - Provider: Nieves Allen RN) 0933 (Not Given - Provider: Pieter Miranda RN - Reason: Patient/family refused) predniSONE (Deltasone) tablet 60 mg 60 mg, Oral, Daily, First dose on Tue02/02/23 at 1400 1325 (Given - Provider: Nieves Allen RN) 0931 (Given - Provider: Pieter Miranda, DESIREE) senna-docusate sodium (Senokot-S) 8.6-50 MG tablet 2 tablet 2 tablet, Oral, 2 times daily, First dose on Tue02/02/23 at 1100 1208 (Given - Provider: Nieves Allen RN) 0600 (Not Given - Provider: Yoanna Ibarra RN - Reason: Patient/family refused)1500 (Canceled Entry - Provider: Automatic Discharge Provider - Comment: Automatically canceled at discontinue of medication order) thiamine (Vitamin B1) tablet 100 mg 100 mg, Oral, 3 times daily, First dose on Tue01/29/23 at 2245 0951 (Given - Provider: Nieves Allen RN)1359 (Given - Provider: Nieves Allen RN)2105 (Given - Provider: Tyson Brock RN) 0906 (Given - Provider: Nieves Allen RN)1325 (Given - Provider: Nieves Allen RN)2110 (Given - Provider: Yoanna Ibarra RN) 0931 (Given - Provider: Pieter Miranda RN)1400 (Canceled Entry - Provider: Automatic Discharge Provider - Comment: Automatically canceled at discontinue of medication order) Continuous Medication Order 02/01/2023 02/02/2023 02/03/2023 dexmedeTOMIDine in NS (Precedex) 400 mcg in 100 mL (4 mcg/mL) infusion (CANCELED) 0.1-1.5 mcg/kg/hr 90.3 kg (2.2575-33.8625 mL/hr, rounded to 2.26-33.86 mL/hr), IntraVENous, Continuous, Starting on 01/30/23 at 1315, If Titrate Infusion? is No: Disregard instructions below. If Titrate infusion? is Yes: Titrate in increments of 0.2 mcg/kg/hr no more frequently than every 30 minutes to goal of therapy. If after titration rate change patient exhibits adverse hemodynamic response, next titration rate change may be adjusted by one-half of the previous rate change. If patient fails sedation interruption, resume dexmedetomidine infusion at 50% of previous rate., Titrate Infusion? Yes, Initial Infusion Dose: 0.4 mcg/kg/hr, Goal of Therapy: Other, Other Goal: RASS -2 goal, Contact Provider if: New onset HR less than 50 bpm, New onset SBP less than 90 mmHg, Patient is receiving maximum dose and is not achieving the goal of therapy 0256 (New Bag - Provider: Jonatan Dang RN)0556 (New Bag - Provider: Jonatan Dang RN)0945 (New Bag - Provider: Nieves Allen RN)1228 (New Bag - Provider: Nieves Allen RN)1519 (New Bag - Provider: Nieves Allen, RN)1830 (New Bag - Provider: Nieves Allen RN)2103 (Rate/Dose Change - Provider: Tyson Brock RN) dexmedeTOMIDine in NS (Precedex) 400 mcg in 100 mL (4 mcg/mL) infusion (CANCELED) 0.1-1.5 mcg/kg/hr 96.1 kg (2.4025-36.0375 mL/hr, rounded to 2.4-36.04 mL/hr), IntraVENous, Continuous, Starting on Tue02/01/23 at 2130, If Titrate Infusion? is No: Disregard instructions below. If Titrate infusion? is Yes: Titrate in increments of 0.2 mcg/kg/hr no more frequently than every 30 minutes to goal of therapy. If after titration rate change patient exhibits adverse hemodynamic response, next titration rate change may be adjusted by one-half of the previous rate change. If patient fails sedation interruption, resume dexmedetomidine infusion at 50% of previous rate., Titrate Infusion? Yes, Initial Infusion Dose: 0.4 mcg/kg/hr, Goal of Therapy: RASS -1 to +1, Contact Provider if: New onset HR less than 50 bpm, New onset SBP less than 90 mmHg, Patient is receiving maximum dose and is not achieving the goal of therapy 2130 (Rate/Dose Change - Provider: Tyson Brock RN)2157 (New Bag - Provider: Tyson Brock RN)2224 (Rate/Dose Change - Provider: Tyson Brock RN)2306 (Rate/Dose Verify - Provider: Tyson Brock RN) 0041 (Rate/Dose Change - Provider: Tyson Brock RN)0248 (Rate/Dose Change - Provider: Tyson Brock RN)0251 (New Bag - Provider: Tyson Brock RN)0433 (Rate/Dose Change - Provider: Tyson Brock RN)0554 (Rate/Dose Change - Provider: Tyson Brock RN)0636 (Stopped - Provider: Tyson Brock RN) PRN Medication Order 02/01/2023 02/02/2023 02/03/2023 ipratropium-albuterol (Duo-Neb) 0.5-2.5 mg/3 mL nebulizer solution 3 mL 3 mL, Nebulization, Every 4 hours PRN, wheezing, Starting on Stacy 02/03/23 at 0858 labetalol (Normodyne,Trandate) injection 10 mg (CANCELED) 10 mg, IntraVENous, Every 6 hours PRN, high blood pressure, SBP>140, Starting on Tue02/01/23 at 1709 1716 (Given - Provider: Nieves Allen RN)1809 (Given - Provider: Nieves Allen RN) labetalol (Normodyne,Trandate) injection 10 mg(Linked Group 3) 10 mg, IntraVENous, Every 4 hours PRN, high blood pressure, SBP>160, Starting on Tue02/01/23 at 2014 labetalol (Normodyne,Trandate) injection 20 mg(Linked Group 3) 20 mg, IntraVENous, Every 4 hours PRN, high blood pressure, SBP>160, Starting on Tue02/01/23 at 2014 LORazepam (Ativan) injection 1 mg 1 mg, IntraVENous, Every 4 hours PRN, anxiety, Starting on 01/29/23 at 2252, For IV doses dilute dose with 1ml NS. 0055 (Given - Provider: Tyson Brock RN) LORazepam (Ativan) injection 1 mg(Linked Group 4) 1 mg, IntraVENous, Every 1 hour PRN, withdrawal, For alcohol withdrawal, Starting on 01/30/23 at 0148, For CIWA score 8 to 10. If both oral and intravenous CIWA medications ordered, use intravenous if unable to tolerate oral equivalent. Reassess CIWA one hour after each dose of medication and as needed. For IV doses dilute dose with 1ml NS. 0116 (See Alternative - Provider: Jonatan Dang RN) 0905 (See Alternative - Provider: Nieves Allen RN)1647 (Given - Provider: Nieves Allen RN)194 (See Alternative - Provider: Yoanna Ibarra RN) 0147 (See Alternative - Provider: Yoanna Ibarra RN)0950 (See Alternative - Provider: Pieter Miranda RN) LORazepam (Ativan) injection 2 mg(Linked Group 4) 2 mg, IntraVENous, Every 1 hour PRN, withdrawal, For alcohol withdrawal., Starting on 01/30/23 at 0148, For CIWA score 11 to 15. If both oral and intravenous CIWA medications ordered, use intravenous if unable to tolerate oral equivalent. Reassess CIWA one hour after each dose of medication and as needed. For IV doses dilute dose with 1ml NS. 0116 (Given - Provider: Jonatan Dang RN) 0905 (Given - Provider: Nieves Allen RN)1647 (See Alternative - Provider: Nieves Allen RN)194 (See Alternative - Provider: Yoanna Ibarra RN) 0147 (See Alternative - Provider: Yoanna Ibarra RN)0950 (See Alternative - Provider: Pieter Miranda, RN) LORazepam (Ativan) injection 3 mg(Linked Group 4) 3 mg, IntraVENous, Every 1 hour PRN, withdrawal, For alcohol withdrawal, Starting on 01/30/23 at 0148, For CIWA score 16 to 20. If both oral and intravenous CIWA medications ordered, use intravenous if unable to tolerate oral equivalent. Reassess CIWA one hour after each dose of medication and as needed. For IV doses dilute dose with 1ml NS. 0116 (See Alternative - Provider: Jonatan Dang RN) 0905 (See Alternative - Provider: Nieves Allen RN)1647 (See Alternative - Provider: Nieves Allen RN)1941 (See Alternative - Provider: Yoanna Ibarra RN) 0147 (See Alternative - Provider: Yoanna Ibarra RN)0950 (See Alternative - Provider: Pieter Miranda, DESIREE) LORazepam (Ativan) injection 4 mg(Linked Group 4) 4 mg, IntraVENous, Every 1 hour PRN, withdrawal, For alcohol withdrawal, Starting on 01/30/23 at 0148, For CIWA score greater than 20. If both oral and intravenous CIWA medications ordered, use intravenous if unable to tolerate oral equivalent. Reassess CIWA one hour after each dose of medication and as needed. For IV doses dilute dose with 1ml NS. 0116 (See Alternative - Provider: oJnatan Dang RN) 0905 (See Alternative - Provider: Nieves Allen RN)1647 (See Alternative - Provider: Nieves Allen RN)1941 (See Alternative - Provider: Yoanna Ibarra, DESIREE) 0147 (See Alternative - Provider: Yoanna Ibarra RN)0950 (See Alternative - Provider: Pieter Miranda, DESIREE) LORazepam (Ativan) tablet 1 mg(Linked Group 4) 1 mg, Oral, Every 1 hour PRN, other, For alcohol withdrawal, Starting on 01/30/23 at 0148, For CIWA score 8 to 10. Reassess CIWA one hour after each dose of medication and as needed. 0116 (See Alternative - Provider: Jonatan Dang RN) 0905 (See Alternative - Provider: Nieves Allen RN)1647 (See Alternative - Provider: Nieves Allen RN)194 (Given - Provider: Yoanna Ibarra RN) 0147 (See Alternative - Provider: Yoanna Ibarra RN)0950 (Given - Provider: Pieter Miranda RN) LORazepam (Ativan) tablet 2 mg(Linked Group 4) 2 mg, Oral, Every 1 hour PRN, other, For alcohol withdrawal, Starting on 01/30/23 at 0148, For CIWA score 11 to 15. Reassess CIWA one hour after each dose of medication and as needed. 0116 (See Alternative - Provider: Jonatan Dang RN) 0905 (See Alternative - Provider: Nieves Allen RN)1647 (See Alternative - Provider: Nieves Allen RN)194 (See Alternative - Provider: Yoanna Ibarra RN) 0147 (Given - Provider: Yoanna Ibarra RN)0950 (See Alternative - Provider: Pieter Miranda RN) LORazepam (Ativan) tablet 3 mg(Linked Group 4) 3 mg, Oral, Every 1 hour PRN, other, For alcohol withdrawal, Starting on 01/30/23 at 0148, For CIWA score 16 to 20. Reassess CIWA one hour after each dose of medication and as needed. 0116 (See Alternative - Provider: Jonatan Dang RN) 0905 (See Alternative - Provider: Nieves Allen RN)1647 (See Alternative - Provider: Nieves Allen RN)194 (See Alternative - Provider: Yoanna Ibarra RN) 0147 (See Alternative - Provider: Yoanna Ibarra RN)0950 (See Alternative - Provider: Pieter Miranda RN) LORazepam (Ativan) tablet 4 mg(Linked Group 4) 4 mg, Oral, Every 1 hour PRN, other, For alcohol withdrawal, Starting on 01/30/23 at 0148, For CIWA score greater than 20. Reassess CIWA one hour after each dose of medication and as needed. 0116 (See Alternative - Provider: Jonatan Dang RN) 0905 (See Alternative - Provider: Nieves Allen RN)1647 (See Alternative - Provider: Nieves Allen, RN)1941 (See Alternative - Provider: Yoanna Ibarra, DESIREE) 0147 (See Alternative - Provider: Yoanna Ibarra RN)0950 (See Alternative - Provider: Pieter Miranda, RN) melatonin tablet 5 mg 5 mg, Oral, Nightly PRN, sleep, Starting on Tue02/02/23 at 2113 2205 (Given - Provider: Yoanna Ibarra, DESIREE) ondansetron (Zofran) injection 4 mg(Linked Group 5) 4 mg, IntraVENous, Every 6 hours PRN, nausea, vomiting, Starting on 01/29/23 at 2157, 1st Line. Give IV if patient is unable to take orally. If inadequate response within 60 minutes, proceed to next-line agent or contact provider if no further options ordered. ondansetron ODT (Zofran-ODT) disintegrating tablet 4 mg(Linked Group 5) 4 mg, Oral, Every 8 hours PRN, nausea, vomiting, Starting on 01/29/23 at 2157, 1st Line. If inadequate response within 60 minutes, proceed to next-line agent or contact provider if no further options ordered. Patient should allow tablet to dissolve on tongue. Do not remove from blister pack until just before administering. oxyCODONE-acetaminophen (Percocet) 5-325 MG per tablet 2 tablet 2 tablet, Oral, Every 6 hours PRN, mild pain (1-3), moderate pain (4-6), Starting on 01/30/23 at 0945, Maximum dose of acetaminophen is 4000 mg from all sources in 24 hours. 2202 (Given - Provider: Tyson Brock RN) 0543 (Given - Provider: Tyson Brock RN)1325 (Given - Provider: Nieves Allen, DESIREE)194 (Given - Provider: Yoanna Ibarra, DESIREE) 0143 (Given - Provider: Yoanna Ibarra, DESIREE)0953 (Given - Provider: Pieter Miranda, RN) PHENobarbital (Luminal) injection 100 mg 100 mg, IntraVENous, Every 8 hours PRN, agitation, Starting on Tue02/02/23 at 1015, Administer no faster than 1 mg/kg/minute, to a max of 60 mg/min in adults. Must be awake to receive For CIWA > 20 PHENobarbital (Luminal) injection 130 mg (CANCELED) 130 mg, IntraVENous, Every 6 hours PRN, agitation, Starting on Tue01/31/23 at 1600, Administer no faster than 1 mg/kg/minute, to a max of 60 mg/min in adults. Must be awake to receive For CIWA > 20 0110 (Given - Provider: Jonatan Dang, RN)0942 (Given - Provider: Nieves Allen, RN)1503 (Given - Provider: Nieves Allen, DESIREE) Linked Groups Order Group 1: methadone (Dolophine) 10 MG/ML solution 62 mg (COMPLETED)Jump to med 62 mg, Oral, Once, On Tue02/01/23 at 1245, For 1 dose Followed by methadone (Dolophine) 10 MG/ML solution 125 mg (COMPLETED)Jump to med 125 mg, Oral, Daily, First dose on Tue02/02/23 at 0715, For 1 dose Group 2: nicotine (Nicoderm, Step 1) 21 MG/24HR patch 1 patchJump to med 1 patch, TransDERmal, Administer over 24 Hours, Daily, First dose on Tue01/30/23 at 0900, For 42 days Followed by nicotine (Nicoderm, Step 2) 14 MG/24HR patch 1 patchJump to med 1 patch, TransDERmal, Administer over 24 Hours, Daily, First dose on Tue03/13/23 at 0900, For 14 days Followed by nicotine (Nicoderm, Step 3) 7 MG/24HR patch 1 patchJump to med 1 patch, TransDERmal, Administer over 24 Hours, Daily, First dose on Tue03/27/23 at 0900, For 14 days Group 3: labetalol (Normodyne,Trandate) injection 10 mgJump to med 10 mg, IntraVENous, Every 4 hours PRN, high blood pressure, SBP>160, Starting on Tue02/01/23 at 2014 Or labetalol (Normodyne,Trandate) injection 20 mgJump to med 20 mg, IntraVENous, Every 4 hours PRN, high blood pressure, SBP>160, Starting on Tue02/01/23 at 2014 Group 4: LORazepam (Ativan) tablet 1 mgJump to med 1 mg, Oral, Every 1 hour PRN, other, For alcohol withdrawal, Starting on 01/30/23 at 0148, For CIWA score 8 to 10. Reassess CIWA one hour after each dose of medication and as needed. Or LORazepam (Ativan) injection 1 mgJump to med 1 mg, IntraVENous, Every 1 hour PRN, withdrawal, For alcohol withdrawal, Starting on 01/30/23 at 0148, For CIWA score 8 to 10. If both oral and intravenous CIWA medications ordered, use intravenous if unable to tolerate oral equivalent. Reassess CIWA one hour after each dose of medication and as needed. For IV doses dilute dose with 1ml NS. Or LORazepam (Ativan) tablet 2 mgJump to med 2 mg, Oral, Every 1 hour PRN, other, For alcohol withdrawal, Starting on 01/30/23 at 0148, For CIWA score 11 to 15. Reassess CIWA one hour after each dose of medication and as needed. Or LORazepam (Ativan) injection 2 mgJump to med 2 mg, IntraVENous, Every 1 hour PRN, withdrawal, For alcohol withdrawal., Starting on 01/30/23 at 0148, For CIWA score 11 to 15. If both oral and intravenous CIWA medications ordered, use intravenous if unable to tolerate oral equivalent. Reassess CIWA one hour after each dose of medication and as needed. For IV doses dilute dose with 1ml NS. Or LORazepam (Ativan) tablet 3 mgJump to med 3 mg, Oral, Every 1 hour PRN, other, For alcohol withdrawal, Starting on 01/30/23 at 0148, For CIWA score 16 to 20. Reassess CIWA one hour after each dose of medication and as needed. Or LORazepam (Ativan) injection 3 mgJump to med 3 mg, IntraVENous, Every 1 hour PRN, withdrawal, For alcohol withdrawal, Starting on 01/30/23 at 0148, For CIWA score 16 to 20. If both oral and intravenous CIWA medications ordered, use intravenous if unable to tolerate oral equivalent. Reassess CIWA one hour after each dose of medication and as needed. For IV doses dilute dose with 1ml NS. Or LORazepam (Ativan) tablet 4 mgJump to med 4 mg, Oral, Every 1 hour PRN, other, For alcohol withdrawal, Starting on 01/30/23 at 0148, For CIWA score greater than 20. Reassess CIWA one hour after each dose of medication and as needed. Or LORazepam (Ativan) injection 4 mgJump to med 4 mg, IntraVENous, Every 1 hour PRN, withdrawal, For alcohol withdrawal, Starting on 01/30/23 at 0148, For CIWA score greater than 20. If both oral and intravenous CIWA medications ordered, use intravenous if unable to tolerate oral equivalent. Reassess CIWA one hour after each dose of medication and as needed. For IV doses dilute dose with 1ml NS. Group 5: ondansetron ODT (Zofran-ODT) disintegrating tablet 4 mgJump to med 4 mg, Oral, Every 8 hours PRN, nausea, vomiting, Starting on 01/29/23 at 2157, 1st Line. If inadequate response within 60 minutes, proceed to next-line agent or contact provider if no further options ordered. Patient should allow tablet to dissolve on tongue. Do not remove from blister pack until just before administering. Or ondansetron (Zofran) injection 4 mgJump to med 4 mg, IntraVENous, Every 6 hours PRN, nausea, vomiting, Starting on 01/29/23 at 2157, 1st Line. Give IV if patient is unable to take orally. If inadequate response within 60 minutes, proceed to next-line agent or contact provider if no further options ordered. Scheduled Medication Order 04/15/2023 04/16/2023 04/17/2023 albuterol (2.5 MG/3ML) 0.083% nebulizer solution 2.5 mg (COMPLETED) 2.5 mg, Nebulization, Once, On 04/16/23 at 2155, For 1 dose 2216 (Given - Provider: Caitlin Wise RN) aspirin chewable tablet 324 mg (COMPLETED) 324 mg, Oral, Once, On 04/16/23 at 2155, For 1 dose 2216 (Given - Provider: Caitlin Wise RN) aspirin EC tablet 81 mg 81 mg, Oral, Daily, First dose on 04/17/23 at 0900, Do not crush, chew, or split. 0808 (Given - Provid er: Crystal Brizuela RN) azithromycin (Zithromax) 500 mg in sodium chloride 0.9 % 250 mL IVPB ([place]) (COMPLETED) 500 mg, IntraVENous, Administer over 60 Minutes, Once, On 04/16/23 at 2310, For 1 dose, [place] bag, Suspected Indication (Select all that apply): Pneumonia (CAP) 0258 (New Bag - Prov ider: Kayleigh Puente RN - Comment: arrived from ER)0358 (Stopped - Provider: Kayleigh Puente, RN) carvedilol (Coreg) tablet 6.25 mg 6.25 mg, Oral, 2 times daily with meals, First dose on 04/17/23 at 0800 0808 (Given - Provid er: Crystal Brizuela RN)1700 (Canceled Entry - Provider: Automatic Discharge Provider - Comment: Automatically canceled at discontinue of medication order) cefTRIAXone (Rocephin) 1,000 mg in sodium chloride 0.9 % 50 mL IVPB Mini-Bag Plus (COMPLETED) 1,000 mg, IntraVENous, at 100 mL/hr, Administer over 30 Minutes, Once, On 04/16/23 at 2310, For 1 dose, Mini-Bag Plus bag, Suspected Indication (Select all that apply): Pneumonia (CAP) 2328 (New Bag - Provider: Caitlin Wise RN)2358 (Stopped - Provider: Caitlin Wise RN) enoxaparin (Lovenox) syringe 40 mg 40 mg, SubCUTAneous, Every 24 hours scheduled (Daily), First dose on 04/17/23 at 0900, Indication of Use: Prophylaxis-DVT/PE, Indications: Prophylaxis of Venous Thromboembolism 0812 (Given - Provid er: Crystal Brizuela RN) famotidine (Pepcid) tablet 20 mg 20 mg, Oral, 2 times daily, First dose on 04/17/23 at 0215 0251 (Given - Provid er: Kayleigh Puente RN)0808 (Given - Provider: Crystal Brizuela RN) folic acid (Folvite) tablet 1 mg 1 mg, Oral, Daily, First dose on 04/17/23 at 0900 0808 (Given - Provid er: Crystal Brizuela RN) influenza vac subunit quadrivalent (Flucelvax) injection 0.5 mL 0.5 mL, IntraMUSCular, Once, On Tue04/18/23 at 0900, For 1 dose lisinopril tablet 5 mg 5 mg, Oral, Daily, First dose on 04/17/23 at 0900, On hold since 04/17/2023 at 0204 until manually unheld 020 (Held by provid er - Provider: Anastacio Huerta MD - Reason: Other)0900 (Dose Auto Held)1805 (Unheld by provider - Provider: Automatic Discharge Provider) LORazepam (Ativan) injection 1 mg (COMPLETED) 1 mg, IntraVENous, Once, On 04/16/23 at 2155, For 1 dose, For IV doses dilute dose with 1ml NS. 2226 (Given - Provider: Caitlin Wise, DESIREE) LORazepam (Ativan) injection 1 mg (COMPLETED) 1 mg, IntraVENous, Once, On 04/16/23 at 2320, For 1 dose, For IV doses dilute dose with 1ml NS. 2328 (Given - Provider: Caitlin Wise RN) magnesium sulfate IVPB premix 2,000 mg 2,000 mg, IntraVENous, at 25 mL/hr, Administer over 2 Hours, Every 8 hours, First dose on 04/17/23 at 0915, For 2 doses, Recommended infusion rate not to exceed 1,000 mg (milligrams) per hour. 1027 (New Bag - Prov ider: Crystal Brizuela RN)1227 (Stopped - Provider: Crystal Brizuela RN)1715 (Canceled Entry - Provider: Automatic Discharge Provider - Comment: Automatically canceled at discontinue of medication order) melatonin tablet 3 mg 3 mg, Oral, Nightly, First dose on 04/17/23 at 2100 methocarbamol (Robaxin) tablet 500 mg 500 mg, Oral, Every 8 hours scheduled (3 times per day), First dose on 04/17/23 at 0600 0600 (Given - Provid er: Kayleigh Puente RN)1422 (Given - Provider: Crystal Brizuela RN) mometasone-formoterol (Dulera 100) 100-5 MCG/ACT inhaler 2 puff 2 puff, Inhalation, 2 times daily, First dose on 04/17/23 at 0800, Rinse mouth with water after use to reduce aftertaste and incidence of candidiasis. Do not swallow. 0809 (Given - Provid er: Crystal Brizuela RN) PHENobarbital (Luminal) tablet 32.4 mg(Linked Group 1) 32.4 mg, Oral, 3 times daily, First dose on Tue04/19/23 at 1400, For 5 doses PHENobarbital (Luminal) tablet 64.8 mg(Linked Group 1) 64.8 mg, Oral, Every 4 hours, First dose on 04/17/23 at 2200, For 4 doses PHENobarbital (Luminal) tablet 64.8 mg(Linked Group 1) 64.8 mg, Oral, Every 6 hours, First dose on Tue04/18/23 at 1400, For 4 doses PHENobarbital (Luminal) tablet 97.2 mg (COMPLETED) 97.2 mg (rounded from 100 mg), Oral, Once, On 04/16/23 at 2315, For 1 dose 2327 (Given - Provider: Caitlin Wise RN) PHENobarbital (Luminal) tablet 97.2 mg(Linked Group 1) 97.2 mg, Oral, Every 4 hours, First dose on 04/17/23 at 1000, For 3 doses 1027 (Given - Provid er: Crystal Brizuela RN)1422 (Given - Provider: Crystal Brizuela RN)1800 (Canceled Entry - Provider: Automatic Discharge Provider - Comment: Automatically canceled at discontinue of medication order) potassium chloride CR (Klor-Con M10) ER tablet 20 mEq 20 mEq, Oral, 3 times daily with meals, First dose on 04/17/23 at 1200, For 3 doses, Best given with food and plenty of water to minimize gastric irritation. Do not crush or chew. 1200 (Given - Provid er: Crystal Brizuela RN)1700 (Canceled Entry - Provider: Automatic Discharge Provider - Comment: Automatically canceled at discontinue of medication order) sodium chloride 0.9 % bolus 1,000 mL (COMPLETED) 1,000 mL, IntraVENous, at 1,000 mL/hr, Administer over 1 Hours, Once, On 04/16/23 at 2200, For 1 dose 2226 (New Bag - Provider: Caitlin Wise, DESIREE)2326 (Stopped - Provider: Caitlin Wise, DESIREE) sodium chloride 0.9% (NS) flush 5-40 mL 5-40 mL, IntraVENous, Every 12 hours, First dose on 04/17/23 at 0215, For Line Patency: Peripheral IV = 5 mL; Midline or Central Line = 10 mL/lumen. If following IV push medication, administer flush at same rate as the IV push. Flush volume is determined by type of infusion therapy being given. For non-viscous solutions use: Peripheral IV = 5 mL Midline or Central Line = 10 mL/lumen For viscous solutions (i.e. blood components, parenteral nutrition, contrast media, or after obtaining blood sample) use: Peripheral IV = 10 mL Midline or Central Line = 20 mL/lumen 0215 (Given - Provid er: Kayleigh Puente RN)1415 (Given - Provider: Crystal Brizuela RN) thiamine (Vitamin B1) tablet 100 mg (CANCELED) 100 mg, Oral, Daily, First dose on 04/17/23 at 0900 0808 (Given - Provid er: Crystal Brizuela RN) thiamine (Vitamin B1) tablet 100 mg 100 mg, Oral, 3 times daily, First dose (after last modification) on 04/17/23 at 1400 1422 (Given - Provid er: Crystal Brizuela RN) PRN Medication Order 04/15/2023 04/16/2023 04/17/2023 acetaminophen (Tylenol) suppository 650 mg(Linked Group 2) 650 mg, Rectal, Every 6 hours PRN, mild pain (1-3), fever, For temp greater than 100.4 F (38 C), Starting on 04/17/23 at 0158, Administer if oral route cannot be used. Maximum dose of acetaminophen is 4000 mg from all sources in 24 hours. 0251 (See Alternativ e - Provider: Kayleigh Puente RN) acetaminophen (Tylenol) tablet 650 mg(Linked Group 2) 650 mg, Oral, Every 6 hours PRN, mild pain (1-3), fever, For temp greater than 100.4 F (38 C), Starting on 04/17/23 at 0158, Maximum dose of acetaminophen is 4000 mg from all sources in 24 hours. 0251 (Given - Provid er: Kayleigh Puente RN) ipratropium-albuterol (Duo-Neb) 0.5-2.5 mg/3 mL nebulizer solution 3 mL 3 mL, Nebulization, 4 times daily PRN, wheezing, Starting on 04/17/23 at 0206 LORazepam (Ativan) injection 1 mg(Linked Group 3) 1 mg, IntraVENous, Every 1 hour PRN, withdrawal, For alcohol withdrawal, Starting on 04/17/23 at 0202, For CIWA score 8 to 10. If both oral and intravenous CIWA medications ordered, use intravenous if unable to tolerate oral equivalent. Reassess CIWA one hour after each dose of medication and as needed. For IV doses dilute dose with 1ml NS. 0251 (See Alternativ e - Provider: Kayleigh Puente RN)0351 (See Alternative - Provider: Kayleigh Puente RN)0626 (See Alternative - Provider: Kayleigh Puente RN)0811 (See Alternative - Provider: Crystal Brizuela RN)1423 (See Alternative - Provider: Crystal Brizuela RN) LORazepam (Ativan) injection 2 mg(Linked Group 3) 2 mg, IntraVENous, Every 1 hour PRN, withdrawal, For alcohol withdrawal., Starting on 04/17/23 at 0202, For CIWA score 11 to 15. If both oral and intravenous CIWA medications ordered, use intravenous if unable to tolerate oral equivalent. Reassess CIWA one hour after each dose of medication and as needed. For IV doses dilute dose with 1ml NS. 0251 (See Alternativ e - Provider: Kayleigh Puente RN)0351 (See Alternative - Provider: Kayleigh Puente RN)0626 (See Alternative - Provider: Kayleigh Puente RN)0811 (See Alternative - Provider: Crystal Brizuela RN)1423 (See Alternative - Provider: Crystal Brizuela, RN) LORazepam (Ativan) injection 3 mg(Linked Group 3) 3 mg, IntraVENous, Every 1 hour PRN, withdrawal, For alcohol withdrawal, Starting on 04/17/23 at 0202, For CIWA score 16 to 20. If both oral and intravenous CIWA medications ordered, use intravenous if unable to tolerate oral equivalent. Reassess CIWA one hour after each dose of medication and as needed. For IV doses dilute dose with 1ml NS. 0251 (See Alternativ e - Provider: Kayleigh Puente RN)0351 (See Alternative - Provider: Kayleigh Puente RN)0626 (Given - Provider: Kayleigh Puente RN)0811 (See Alternative - Provider: Crystal Brizuela RN)1423 (See Alternative - Provider: Crystal Brizuela RN) LORazepam (Ativan) injection 4 mg(Linked Group 3) 4 mg, IntraVENous, Every 1 hour PRN, withdrawal, For alcohol withdrawal, Starting on 04/17/23 at 0202, For CIWA score greater than 20. If both oral and intravenous CIWA medications ordered, use intravenous if unable to tolerate oral equivalent. Reassess CIWA one hour after each dose of medication and as needed. For IV doses dilute dose with 1ml NS. 0251 (See Alternativ e - Provider: Kayleigh Puente RN)0351 (Given - Provider: Kayleigh Puente RN)0626 (See Alternative - Provider: Kayleigh Puente RN)0811 (See Alternative - Provider: Crystal Brizuela RN)1423 (See Alternative - Provider: Crystal Brizuela, RN) LORazepam (Ativan) tablet 1 mg(Linked Group 3) 1 mg, Oral, Every 1 hour PRN, other, For alcohol withdrawal, Starting on 04/17/23 at 0202, For CIWA score 8 to 10. Reassess CIWA one hour after each dose of medication and as needed. 0251 (Given - Provid er: Kayleigh Puente RN)0351 (See Alternative - Provider: Kayleigh Puente RN)0626 (See Alternative - Provider: Kayleigh Puente RN)0811 (See Alternative - Provider: Crystal Brizuela, RN)1423 (Given - Provider: Crystal Brizuela, RN) LORazepam (Ativan) tablet 2 mg(Linked Group 3) 2 mg, Oral, Every 1 hour PRN, other, For alcohol withdrawal, Starting on 04/17/23 at 0202, For CIWA score 11 to 15. Reassess CIWA one hour after each dose of medication and as needed. 0251 (See Alternativ e - Provider: Kayleigh Puente RN)0351 (See Alternative - Provider: Kayleigh Puente RN)0626 (See Alternative - Provider: Kayleigh Puente RN)0811 (Given - Provider: Crystal Brizuela RN)1423 (See Alternative - Provider: Crystal Brizuela, RN) LORazepam (Ativan) tablet 3 mg(Linked Group 3) 3 mg, Oral, Every 1 hour PRN, other, For alcohol withdrawal, Starting on 04/17/23 at 0202, For CIWA score 16 to 20. Reassess CIWA one hour after each dose of medication and as needed. 0251 (See Alternativ e - Provider: Kayleigh Puente RN)0351 (See Alternative - Provider: Kayleigh Puente RN)0626 (See Alternative - Provider: Kayleigh Puente RN)0811 (See Alternative - Provider: Crystal Brizuela RN)1423 (See Alternative - Provider: Crystal Brizuela, RN) LORazepam (Ativan) tablet 4 mg(Linked Group 3) 4 mg, Oral, Every 1 hour PRN, other, For alcohol withdrawal, Starting on 04/17/23 at 0202, For CIWA score greater than 20. Reassess CIWA one hour after each dose of medication and as needed. 0251 (See Alternativ e - Provider: Kayleigh Puente RN)0351 (See Alternative - Provider: Kayleigh Puente RN)0626 (See Alternative - Provider: Kayleigh Puente RN)0811 (See Alternative - Provider: Crystal Brizuela RN)1423 (See Alternative - Provider: Crystal Brizuela RN) ondansetron (Zofran) injection 4 mg(Linked Group 4) 4 mg, IntraVENous, Every 6 hours PRN, nausea, vomiting, Starting on 04/17/23 at 0158, 1st Line. Give IV if patient is unable to take orally. If inadequate response within 60 minutes, proceed to next-line agent or contact provider if no further options ordered. ondansetron ODT (Zofran-ODT) disintegrating tablet 4 mg(Linked Group 4) 4 mg, Oral, Every 8 hours PRN, nausea, vomiting, Starting on 04/17/23 at 0158, 1st Line. If inadequate response within 60 minutes, proceed to next-line agent or contact provider if no further options ordered. Patient should allow tablet to dissolve on tongue. Do not remove from blister pack until just before administering. polyethylene glycol (PEG) 3350 (Miralax) packet 17 g 17 g, Oral, Daily PRN, constipation, Starting on 04/17/23 at 0158, 1st line for treatment of constipation - give scheduled if no bowel movement in past 24 hours. sodium chloride 0.9 % infusion 5-250 mL/hr, IntraVENous, PRN, if patient receiving piggyback infusions and maintenance fluids are not ordered OR KVO fluids to protect IV site / prevent frequent line interruptions / long duration, Starting on 04/17/23 at 0158, For piggyback infusion, administer at same rate as piggyback for a total of 25 mL. Enter 25 mL into dose field and piggyback rate into rate field of order. If piggyback is infusing at a rate less than 100 mL/hr, enter 25 mL into dose field and 100 mL/hr into rate field of order. For KVO fluids, enter rate of 20 mL/hr or less into rate field of order. sodium chloride 0.9% (NS) flush 5-40 mL 5-40 mL, IntraVENous, PRN, line care, After every IV line use, Starting on Tue04/17/23 at 0158, For Line Patency: Peripheral IV = 5 mL; Midline or Central Line = 10 mL/lumen. If following IV push medication, administer flush at same rate as the IV push. Flush volume is determined by type of infusion therapy being given. For non-viscous solutions use: Peripheral IV = 5 mL Midline or Central Line = 10 mL/lumen For viscous solutions (i.e. blood components, parenteral nutrition, contrast media, or after obtaining blood sample) use: Peripheral IV = 10 mL Midline or Central Line = 20 mL/lumen Linked Groups Order Group 1: PHENobarbital (Luminal) tablet 97.2 mgJump to med 97.2 mg, Oral, Every 4 hours, First dose on Tue04/17/23 at 1000, For 3 doses Followed by PHENobarbital (Luminal) tablet 64.8 mgJump to med 64.8 mg, Oral, Every 4 hours, First dose on Tue04/17/23 at 2200, For 4 doses Followed by PHENobarbital (Luminal) tablet 64.8 mgJump to med 64.8 mg, Oral, Every 6 hours, First dose on Tue04/18/23 at 1400, For 4 doses Followed by PHENobarbital (Luminal) tablet 32.4 mgJump to med 32.4 mg, Oral, 3 times daily, First dose on Tue04/19/23 at 1400, For 5 doses Group 2: acetaminophen (Tylenol) tablet 650 mgJump to med 650 mg, Oral, Every 6 hours PRN, mild pain (1-3), fever, For temp greater than 100.4 F (38 C), Starting on Tue04/17/23 at 0158, Maximum dose of acetaminophen is 4000 mg from all sources in 24 hours. Or acetaminophen (Tylenol) suppository 650 mgJump to med 650 mg, Rectal, Every 6 hours PRN, mild pain (1-3), fever, For temp greater than 100.4 F (38 C), Starting on 04/17/23 at 0158, Administer if oral route cannot be used. Maximum dose of acetaminophen is 4000 mg from all sources in 24 hours. Group 3: LORazepam (Ativan) tablet 1 mgJump to med 1 mg, Oral, Every 1 hour PRN, other, For alcohol withdrawal, Starting on 04/17/23 at 0202, For CIWA score 8 to 10. Reassess CIWA one hour after each dose of medication and as needed. Or LORazepam (Ativan) injection 1 mgJump to med 1 mg, IntraVENous, Every 1 hour PRN, withdrawal, For alcohol withdrawal, Starting on 04/17/23 at 0202, For CIWA score 8 to 10. If both oral and intravenous CIWA medications ordered, use intravenous if unable to tolerate oral equivalent. Reassess CIWA one hour after each dose of medication and as needed. For IV doses dilute dose with 1ml NS. Or LORazepam (Ativan) tablet 2 mgJump to med 2 mg, Oral, Every 1 hour PRN, other, For alcohol withdrawal, Starting on 04/17/23 at 0202, For CIWA score 11 to 15. Reassess CIWA one hour after each dose of medication and as needed. Or LORazepam (Ativan) injection 2 mgJump to med 2 mg, IntraVENous, Every 1 hour PRN, withdrawal, For alcohol withdrawal., Starting on 04/17/23 at 0202, For CIWA score 11 to 15. If both oral and intravenous CIWA medications ordered, use intravenous if unable to tolerate oral equivalent. Reassess CIWA one hour after each dose of medication and as needed. For IV doses dilute dose with 1ml NS. Or LORazepam (Ativan) tablet 3 mgJump to med 3 mg, Oral, Every 1 hour PRN, other, For alcohol withdrawal, Starting on 04/17/23 at 0202, For CIWA score 16 to 20. Reassess CIWA one hour after each dose of medication and as needed. Or LORazepam (Ativan) injection 3 mgJump to med 3 mg, IntraVENous, Every 1 hour PRN, withdrawal, For alcohol withdrawal, Starting on 04/17/23 at 0202, For CIWA score 16 to 20. If both oral and intravenous CIWA medications ordered, use intravenous if unable to tolerate oral equivalent. Reassess CIWA one hour after each dose of medication and as needed. For IV doses dilute dose with 1ml NS. Or LORazepam (Ativan) tablet 4 mgJump to med 4 mg, Oral, Every 1 hour PRN, other, For alcohol withdrawal, Starting on 04/17/23 at 0202, For CIWA score greater than 20. Reassess CIWA one hour after each dose of medication and as needed. Or LORazepam (Ativan) injection 4 mgJump to med 4 mg, IntraVENous, Every 1 hour PRN, withdrawal, For alcohol withdrawal, Starting on 04/17/23 at 0202, For CIWA score greater than 20. If both oral and intravenous CIWA medications ordered, use intravenous if unable to tolerate oral equivalent. Reassess CIWA one hour after each dose of medication and as needed. For IV doses dilute dose with 1ml NS. Group 4: ondansetron ODT (Zofran-ODT) disintegrating tablet 4 mgJump to med 4 mg, Oral, Every 8 hours PRN, nausea, vomiting, Starting on 04/17/23 at 0158, 1st Line. If inadequate response within 60 minutes, proceed to next-line agent or contact provider if no further options ordered. Patient should allow tablet to dissolve on tongue. Do not remove from blister pack until just before administering. Or ondansetron (Zofran) injection 4 mgJump to med 4 mg, IntraVENous, Every 6 hours PRN, nausea, vomiting, Starting on 04/17/23 at 0158, 1st Line. Give IV if patient is unable to take orally. If inadequate response within 60 minutes, proceed to next-line agent or contact provider if no further options ordered. Scheduled Medication Order 04/20/2023 04/21/2023 04/22/2023 aspirin EC tablet 81 mg 81 mg, Oral, Daily, First dose (after last modification) on Tue04/19/23 at 1035, Do not crush, chew, or split. 0844 (Given - Provider: Tasha Maravilla RN) 0830 (Given - Provider: Abby Manuel RN) 0851 (Given - Provider: Eugenia Barker, DESIREE) atorvastatin (Lipitor) tablet 40 mg 40 mg, Oral, Daily, First dose on Tue04/19/23 at 1035 0844 (Given - Provider: Tasha Maravilla RN) 0830 (Given - Provider: Abby Manuel RN) 0852 (Given - Provider: Eugenia Barker, DESIREE) carvedilol (Coreg) tablet 6.25 mg 6.25 mg, Oral, 2 times daily with meals, First dose (after last modification) on Tue04/19/23 at 1035 0844 (Given - Provider: Tasha Maravilla, DESIREE)1641 (Given - Provider: Tasha Maravilla RN) 0830 (Given - Provider: Abby Manuel RN)1747 (Given - Provider: Nicky Luo RN) 0852 (Given - Provider: Eugenia Barker RN) chlordiazePOXIDE (Librium) capsule 10 mg (CANCELED) 10 mg, Oral, Every 6 hours, First dose on Tue04/20/23 at 1400, OK to HOLD if overly sedated 1306 (Given - Provider: Tasha Maravilla RN)2023 (Given - Provider: Willian Eli, DESIREE) 0219 (Given - Provider: Willian Eli, DESIREE)0830 (Given - Provider: Abby Manuel RN) chlordiazePOXIDE (Librium) capsule 5 mg (CANCELED) 5 mg, Oral, Every 6 hours, First dose (after last modification) on Tue04/21/23 at 1400, OK to HOLD if overly sedated 1418 (Given - Provider: Abby Manuel RN)1943 (Given - Provider: Cyndi Byrne, DESIREE) 0202 (Not Given - Provider: Cyndi Byrne, RN - Reason: Other)0303 (Given - Provider: Cyndi Byrne, DESIREE)0851 (Given - Provider: Eugenia Barker RN) chlordiazePOXIDE (Librium) capsule 5 mg 5 mg, Oral, Every 8 hours, First dose (after last modification) on Tue04/22/23 at 1400, For 3 doses, OK to HOLD if overly sedated doxycycline (Monodox) capsule 100 mg (CANCELED) 100 mg, Oral, 2 times daily, First dose on Tue04/20/23 at 0900, Changed from IV to PO per P&T approved IV to PO policy Take with at least 8 ounces (large glass) of water, do not lie down for 30 minutes after, Suspected Indication (Select all that apply): Pneumonia (CAP) 0844 (Given - Provider: Tasha Maravilla RN) enoxaparin (Lovenox) syringe 40 mg 40 mg, SubCUTAneous, Every 24 hours scheduled (Daily), First dose (after last modification) on Tue04/19/23 at 1035, Indication of Use: Prophylaxis-DVT/PE, Indications: Prophylaxis of Venous Thromboembolism 0845 (Given - Provider: Tasha Maravilla RN) 0833 (Given - Provider: Abby Manuel, DESIREE) 0851 (Given - Provider: Eugenia Barker, DESIREE) famotidine (Pepcid) tablet 20 mg 20 mg, Oral, 2 times daily, First dose (after last modification) on Tue04/19/23 at 1035 0844 (Given - Provider: Tasha Maravilla, DESIREE)202 (Given - Provider: Willian Eli, DESIREE) 0830 (Given - Provider: Abby Manuel, DESIREE)194 (Given - Provider: Cyndi Byrne RN) 0851 (Given - Provider: Eugenia Barker, DESIREE) folic acid (Folvite) tablet 1 mg 1 mg, Oral, Daily, First dose (after last modification) on Tue04/19/23 at 1035 0844 (Given - Provider: Tasah Maravilla RN) 0830 (Given - Provider: Abby Manuel, DESIREE) 0852 (Given - Provider: Eugenia Barker, DESIREE) influenza vac subunit quadrivalent (Flucelvax) injection 0.5 mL 0.5 mL, IntraMUSCular, Prior to discharge, Starting on Tue04/19/23 at 1034, For 1 dose lamoTRIgine (LaMICtal) tablet 50 mg 50 mg, Oral, Daily, First dose on Tue04/19/23 at 1425 0844 (Given - Provider: Tasha Maravilla RN) 0830 (Given - Provider: Abby Manuel RN) 0852 (Given - Provider: Eugenia Barker, DESIREE) lisinopril tablet 5 mg 5 mg, Oral, Daily, First dose (after last modification) on Tue04/19/23 at 1035 0844 (Given - Provider: Tasha Maravilla, DESIREE) 0830 (Given - Provider: Abby Manuel, DESIREE) 0851 (Given - Provider: Eugenia Barker, DESIREE) melatonin tablet 3 mg 3 mg, Oral, Nightly, First dose (after last modification) on Tue04/19/23 at 2100 2023 (Given - Provider: Willian Eli, DESIREE) 1945 (Given - Provider: Cyndi Byrne, DESIREE) methadone (Dolophine) 10 MG/ML solution 125 mg 125 mg, Oral, Daily before breakfast, First dose on Tue04/21/23 at 0950 1010 (Given - Provider: Abby Manuel RN) 0757 (Given - Provider: Eugenia Barker, DESIREE) methadone (Dolophine) 10 MG/ML solution 63 mg (COMPLETED) 63 mg, Oral, Once, On Tue04/20/23 at 1220, For 1 dose 1306 (Given - Provider: Tasha Maravilla, DESIREE) methocarbamol (Robaxin) tablet 500 mg 500 mg, Oral, Every 8 hours scheduled (3 times per day), First dose (after last modification) on Tue04/19/23 at 1400 0654 (Given - Provider: Paz Wise RN)1306 (Given - Provider: Tasha Maravilla, DESIREE)2205 (Given - Provider: Willian Eli, DESIREE) 0649 (Given - Provider: Willian Eli, DESIREE)1418 (Given - Provider: Abby Manuel, DESIREE)2111 (Given - Provider: Cyndi Bryne, DESIREE) 0710 (Given - Provider: Cyndi Byrne, DESIREE) mometasone-formoterol (Dulera 100) 100-5 MCG/ACT inhaler 2 puff 2 puff, Inhalation, 2 times daily, First dose (after last modification) on Tue04/19/23 at 1035, Rinse mouth with water after use to reduce aftertaste and incidence of candidiasis. Do not swallow. 0846 (Given - Provider: Tasha Maravilla RN)2022 (Given - Provider: Willian Eli, RN) 0744 (Given - Provider: Abby Manuel RN)1999 (Not Given - Provider: Cyndi Byrne, DESIREE - Reason: Patient/family refused) 0800 (Canceled Entry - Provider: Automatic Discharge Provider - Comment: Automatically canceled at discontinue of medication order) thiamine (Vitamin B1) tablet 100 mg 100 mg, Oral, Daily, First dose on Tue04/19/23 at 0900 0844 (Given - Provider: Tasha Maravilla RN) 0830 (Given - Provider: Abby Manuel, DESIREE) 0851 (Given - Provider: Eugenia Barker, RN) ticagrelor (Brilinta) tablet 90 mg 90 mg, Oral, 2 times daily, First dose on Tue04/19/23 at 1415 0844 (Given - Provider: Tasha Maravilla RN)2022 (Not Given - Provider: Willian Eli RN - Reason: Patient/family refused - Comment: Pt states he was taken off Brilinta one year ago) 0830 (Given - Provider: Abby Manuel, DESIREE)1945 (Given - Provider: Cyndi Byrne, RN) 0852 (Given - Provider: Eugenia Barker, DESIREE) PRN Medication Order 04/20/2023 04/21/2023 04/22/2023 acetaminophen (Tylenol) suppository 650 mg(Linked Group 1) 650 mg, Rectal, Every 6 hours PRN, mild pain (1-3), fever, For temp greater than 100.4 F (38 C), Starting on Tue04/19/23 at 1032, Administer if oral route cannot be used. Maximum dose of acetaminophen is 4000 mg from all sources in 24 hours. 181 (See Alternative - Provider: Tasha Maravilla RN) acetaminophen (Tylenol) tablet 650 mg(Linked Group 1) 650 mg, Oral, Every 6 hours PRN, mild pain (1-3), fever, For temp greater than 100.4 F (38 C), Starting on Tue04/19/23 at 1032, Maximum dose of acetaminophen is 4000 mg from all sources in 24 hours. 181 (Given - Provider: Tasha Maravilla RN) ipratropium-albuterol (Duo-Neb) 0.5-2.5 mg/3 mL nebulizer solution 3 mL 3 mL, Nebulization, 4 times daily PRN, wheezing, Starting on Tue04/19/23 at 1032 0649 (Given - Provider: Willian Eli, DESIREE) 0313 (Given - Provider: Reinaldo Mcdowell RCP) LORazepam (Ativan) injection 1 mg(Linked Group 2) 1 mg, IntraVENous, Every 1 hour PRN, withdrawal, For alcohol withdrawal, Starting on Tue04/19/23 at 0712, For CIWA score 8 to 10. If both oral and intravenous CIWA medications ordered, use intravenous if unable to tolerate oral equivalent. Reassess CIWA one hour after each dose of medication and as needed. For IV doses dilute dose with 1ml NS. 0327 (See Alternative - Provider: Paz Wise RN)164 (See Alternative - Provider: Tasha Maravilla RN)1947 (See Alternative - Provider: Willian Eli RN) 0743 (See Alternative - Provider: Abby Manuel RN)1555 (See Alternative - Provider: Nicky Luo RN)174 (See Alternative - Provider: Nicky Luo RN)1950 (See Alternative - Provider: Cyndi Byrne RN) 031 (See Alternative - Provider: Cyndi Byrne RN) LORazepam (Ativan) injection 2 mg(Linked Group 2) 2 mg, IntraVENous, Every 1 hour PRN, withdrawal, For alcohol withdrawal., Starting on Tue04/19/23 at 0712, For CIWA score 11 to 15. If both oral and intravenous CIWA medications ordered, use intravenous if unable to tolerate oral equivalent. Reassess CIWA one hour after each dose of medication and as needed. For IV doses dilute dose with 1ml NS. 0327 (See Alternative - Provider: Paz Wise RN)164 (See Alternative - Provider: Tasha Maravilla RN)194 (See Alternative - Provider: Willian Eli RN) 0743 (See Alternative - Provider: Abby Manuel RN)155 (Given - Provider: Nicky Luo RN)174 (See Alternative - Provider: Nicky Luo RN)1950 (See Alternative - Provider: Cyndi Byrne, RN) 031 (See Alternative - Provider: Cyndi Byrne, DESIREE) LORazepam (Ativan) injection 3 mg(Linked Group 2) 3 mg, IntraVENous, Every 1 hour PRN, withdrawal, For alcohol withdrawal, Starting on Tue04/19/23 at 0712, For CIWA score 16 to 20. If both oral and intravenous CIWA medications ordered, use intravenous if unable to tolerate oral equivalent. Reassess CIWA one hour after each dose of medication and as needed. For IV doses dilute dose with 1ml NS. 0327 (See Alternative - Provider: Paz Wise RN)1640 (See Alternative - Provider: Tasha Maravilla RN)1947 (See Alternative - Provider: Willian Eli, RN) 0743 (See Alternative - Provider: Abby Manuel, DESIREE)1554 (See Alternative - Provider: Nicky Luo RN)1746 (Given - Provider: Nicky Luo RN)1950 (See Alternative - Provider: Cyndi Byrne RN) 310 (See Alternative - Provider: Cyndi Byrne, DESIREE) LORazepam (Ativan) injection 4 mg(Linked Group 2) 4 mg, IntraVENous, Every 1 hour PRN, withdrawal, For alcohol withdrawal, Starting on Tue04/19/23 at 0712, For CIWA score greater than 20. If both oral and intravenous CIWA medications ordered, use intravenous if unable to tolerate oral equivalent. Reassess CIWA one hour after each dose of medication and as needed. For IV doses dilute dose with 1ml NS. 0327 (See Alternative - Provider: Paz Wise RN)1640 (See Alternative - Provider: Tasha Maravilla RN)1947 (See Alternative - Provider: Willian Eli, DESIREE) 0743 (See Alternative - Provider: Abby Manuel RN)155 (See Alternative - Provider: Nicky Luo RN)174 (See Alternative - Provider: Nicky Luo RN)1950 (See Alternative - Provider: Cyndi Byrne RN) 310 (See Alternative - Provider: Cyndi Byrne, DESIREE) LORazepam (Ativan) tablet 1 mg(Linked Group 2) 1 mg, Oral, Every 1 hour PRN, other, For alcohol withdrawal, Starting on Tue04/19/23 at 0712, For CIWA score 8 to 10. Reassess CIWA one hour after each dose of medication and as needed. 326 (See Alternative - Provider: Paz Wise RN)1640 (Given - Provider: Tasha Maravilla RN)1947 (Given - Provider: Willian Eli, DESIREE) 0743 (See Alternative - Provider: Abby Manuel RN)155 (See Alternative - Provider: Nicky Luo RN)174 (See Alternative - Provider: Nicky Luo RN)1950 (See Alternative - Provider: Cyndi Byrne, DESIREE) 310 (Given - Provider: Cyndi Byrne RN) LORazepam (Ativan) tablet 2 mg(Linked Group 2) 2 mg, Oral, Every 1 hour PRN, other, For alcohol withdrawal, Starting on Tue04/19/23 at 0712, For CIWA score 11 to 15. Reassess CIWA one hour after each dose of medication and as needed. 326 (Given - Provider: Paz Wise RN - Comment: CIWA 11)1640 (See Alternative - Provider: Tasha Maravilla RN)1947 (See Alternative - Provider: Willain Eli RN) 0743 (Given - Provider: Abby Manuel RN)155 (See Alternative - Provider: Nicky Luo RN)1746 (See Alternative - Provider: Nicky Luo RN)1950 (Given - Provider: Cyndi Byrne RN) 310 (See Alternative - Provider: Cyndi Byrne RN) LORazepam (Ativan) tablet 3 mg(Linked Group 2) 3 mg, Oral, Every 1 hour PRN, other, For alcohol withdrawal, Starting on Tue04/19/23 at 0712, For CIWA score 16 to 20. Reassess CIWA one hour after each dose of medication and as needed. 326 (See Alternative - Provider: Paz Wise RN)1640 (See Alternative - Provider: Tasha Maravilla RN)1947 (See Alternative - Provider: Willian Eli, DESIREE) 0743 (See Alternative - Provider: Abby Manuel RN)155 (See Alternative - Provider: Nicky Luo RN)1746 (See Alternative - Provider: Nicky Luo RN)1950 (See Alternative - Provider: Cyndi Byrne, RN) 310 (See Alternative - Provider: Cyndi Byrne, RN) LORazepam (Ativan) tablet 4 mg(Linked Group 2) 4 mg, Oral, Every 1 hour PRN, other, For alcohol withdrawal, Starting on Tue04/19/23 at 0712, For CIWA score greater than 20. Reassess CIWA one hour after each dose of medication and as needed. 0327 (See Alternative - Provider: Paz Wise, RN)1641 (See Alternative - Provider: Tasha Maravilla, RN)1948 (See Alternative - Provider: Willian Eli, RN) 0743 (See Alternative - Provider: Abby Manuel, DESIREE)1555 (See Alternative - Provider: Nicky Luo, RN)174 (See Alternative - Provider: Nicky Luo, RN)1950 (See Alternative - Provider: Cyndi Byrne, RN) 310 (See Alternative - Provider: Cyndi Byrne, DESIREE) naloxone (Narcan) injection 0.4 mg 0.4 mg, IntraVENous, Every 5 min PRN, opioid reversal, respiratory depression, Starting on Tue04/21/23 at 0949, +++ For RR <10, pinpoint pupils, over sedation for opioid reversal - MUST notify cotton program technician provider immediately after first dose, may give IM or SQ if no IV access +++ ondansetron (Zofran) injection 4 mg(Linked Group 3) 4 mg, IntraVENous, Every 6 hours PRN, nausea, vomiting, Starting on Tue04/19/23 at 1032, 1st Line. Give IV if patient is unable to take orally. If inadequate response within 60 minutes, proceed to next-line agent or contact provider if no further options ordered. ondansetron ODT (Zofran-ODT) disintegrating tablet 4 mg(Linked Group 3) 4 mg, Oral, Every 8 hours PRN, nausea, vomiting, Starting on Tue04/19/23 at 1032, 1st Line. If inadequate response within 60 minutes, proceed to next-line agent or contact provider if no further options ordered. Patient should allow tablet to dissolve on tongue. Do not remove from blister pack until just before administering. polyethylene glycol (PEG) 3350 (Miralax) packet 17 g 17 g, Oral, Daily PRN, constipation, Starting on Tue04/19/23 at 1032, 1st line for treatment of constipation - give scheduled if no bowel movement in past 24 hours. Linked Groups Order Group 1: acetaminophen (Tylenol) tablet 650 mgJump to med 650 mg, Oral, Every 6 hours PRN, mild pain (1-3), fever, For temp greater than 100.4 F (38 C), Starting on Tue04/19/23 at 1032, Maximum dose of acetaminophen is 4000 mg from all sources in 24 hours. Or acetaminophen (Tylenol) suppository 650 mgJump to med 650 mg, Rectal, Every 6 hours PRN, mild pain (1-3), fever, For temp greater than 100.4 F (38 C), Starting on Tue04/19/23 at 1032, Administer if oral route cannot be used. Maximum dose of acetaminophen is 4000 mg from all sources in 24 hours. Group 2: LORazepam (Ativan) tablet 1 mgJump to med 1 mg, Oral, Every 1 hour PRN, other, For alcohol withdrawal, Starting on Tue04/19/23 at 0712, For CIWA score 8 to 10. Reassess CIWA one hour after each dose of medication and as needed. Or LORazepam (Ativan) injection 1 mgJump to med 1 mg, IntraVENous, Every 1 hour PRN, withdrawal, For alcohol withdrawal, Starting on Tue04/19/23 at 0712, For CIWA score 8 to 10. If both oral and intravenous CIWA medications ordered, use intravenous if unable to tolerate oral equivalent. Reassess CIWA one hour after each dose of medication and as needed. For IV doses dilute dose with 1ml NS. Or LORazepam (Ativan) tablet 2 mgJump to med 2 mg, Oral, Every 1 hour PRN, other, For alcohol withdrawal, Starting on Tue04/19/23 at 0712, For CIWA score 11 to 15. Reassess CIWA one hour after each dose of medication and as needed. Or LORazepam (Ativan) injection 2 mgJump to med 2 mg, IntraVENous, Every 1 hour PRN, withdrawal, For alcohol withdrawal., Starting on Tue04/19/23 at 0712, For CIWA score 11 to 15. If both oral and intravenous CIWA medications ordered, use intravenous if unable to tolerate oral equivalent. Reassess CIWA one hour after each dose of medication and as needed. For IV doses dilute dose with 1ml NS. Or LORazepam (Ativan) tablet 3 mgJump to med 3 mg, Oral, Every 1 hour PRN, other, For alcohol withdrawal, Starting on Tue04/19/23 at 0712, For CIWA score 16 to 20. Reassess CIWA one hour after each dose of medication and as needed. Or LORazepam (Ativan) injection 3 mgJump to med 3 mg, IntraVENous, Every 1 hour PRN, withdrawal, For alcohol withdrawal, Starting on Tue04/19/23 at 0712, For CIWA score 16 to 20. If both oral and intravenous CIWA medications ordered, use intravenous if unable to tolerate oral equivalent. Reassess CIWA one hour after each dose of medication and as needed. For IV doses dilute dose with 1ml NS. Or LORazepam (Ativan) tablet 4 mgJump to med 4 mg, Oral, Every 1 hour PRN, other, For alcohol withdrawal, Starting on Tue04/19/23 at 0712, For CIWA score greater than 20. Reassess CIWA one hour after each dose of medication and as needed. Or LORazepam (Ativan) injection 4 mgJump to med 4 mg, IntraVENous, Every 1 hour PRN, withdrawal, For alcohol withdrawal, Starting on Tue04/19/23 at 0712, For CIWA score greater than 20. If both oral and intravenous CIWA medications ordered, use intravenous if unable to tolerate oral equivalent. Reassess CIWA one hour after each dose of medication and as needed. For IV doses dilute dose with 1ml NS. Group 3: ondansetron ODT (Zofran-ODT) disintegrating tablet 4 mgJump to med 4 mg, Oral, Every 8 hours PRN, nausea, vomiting, Starting on Tue04/19/23 at 1032, 1st Line. If inadequate response within 60 minutes, proceed to next-line agent or contact provider if no further options ordered. Patient should allow tablet to dissolve on tongue. Do not remove from blister pack until just before administering. Or ondansetron (Zofran) injection 4 mgJump to med 4 mg, IntraVENous, Every 6 hours PRN, nausea, vomiting, Starting on Tue04/19/23 at 1032, 1st Line. Give IV if patient is unable to take orally. If inadequate response within 60 minutes, proceed to next-line agent or contact provider if no further options ordered. Scheduled Medication Order 04/23/2023 04/24/2023 04/25/2023 amoxicillin-clavulanate (Augmentin) 875-125 MG per tablet 1 tablet (COMPLETED) 1 tablet (875 mg), Oral, Once, On Tue04/25/23 at 0025, For 1 dose, Suspected Indication (Select all that apply): Pneumonia (CAP) 0032 (Given - Provid er: Rhoda Kim RN) hydrOXYzine pamoate (Vistaril) capsule 25 mg (COMPLETED) 25 mg, Oral, Once, On Tue04/25/23 at 0015, For 1 dose 0017 (Given - Provid er: Rhoda Kim RN) ondansetron (Zofran) injection 4 mg (COMPLETED) 4 mg, IntraVENous, Once, On 04/24/23 at 2345, For 1 dose 2356 (Given - Provider: Rhoda Kim RN) pantoprazole (ProtoNix) 40 mg in sodium chloride (PF) 0.9 % 10 mL injection (COMPLETED) 40 mg, IntraVENous, Administer over 2 Minutes, Once, On 04/24/23 at 2340, For 1 dose, Reconstitute with 10 ml NS. Vial expires 2 hrs after reconstitution. 2359 (Given - Provider: hRoda Kim RN) potassium chloride (Klor-Con) packet 40 mEq (COMPLETED) 40 mEq, Oral, Once, On Tue04/25/23 at 0030, For 1 dose, Dissolve each packet in 4 ounces of water = 5 mEq per 1 oz fluid. 0031 (Given - Provid er: Rhoda Kim RN) Scheduled Medication Order 01/27/2024 01/28/2024 01/29/2024 ipratropium-albuterol (Duo-Neb) 0.5-2.5 mg/3 mL nebulizer solution 3 mL (COMPLETED) 3 mL, Nebulization, Once, On 01/28/24 at 2240, For 1 dose 2250 (Given - Provider: Kay Ballesteros RN) LORazepam (Ativan) injection 1 mg (COMPLETED) 1 mg, IntraVENous, Once, On 01/28/24 at 2240, For 1 dose, For IV doses dilute dose with 1ml NS. 224 (Given - Provider: Kay Ballesteros RN) methylPREDNISolone sodium succinate (PF) (SOLU-Medrol) injection 40 mg (COMPLETED) 40 mg, IntraVENous, Once, On 01/28/24 at 2240, For 1 dose 224 (Given - Provider: Kay Ballesteros RN) ondansetron (Zofran) injection 4 mg (COMPLETED) 4 mg, IntraVENous, Once, On 01/28/24 at 2245, For 1 dose 2303 (Given - Provider: Kay Ballesteros RN) potassium chloride (Klor-Con) packet 40 mEq (COMPLETED) 40 mEq, Oral, Once, On 01/28/24 at 2320, For 1 dose, Dissolve each packet in 4 ounces of water = 5 mEq per 1 oz fluid., Indications: Hypokalemia 233 (Given - Provider: Kay Ballesteros RN) sodium chloride 0.9 % bolus 1,000 mL (COMPLETED) 1,000 mL, IntraVENous, at 1,000 mL/hr, Administer over 1 Hours, Once, On 01/28/24 at 2240, For 1 dose 2243 (New Bag - Provider: Jeanette Manzanares RN)2338 (Stopped - Provider: Jeanette Manzanares RN) Scheduled Medication Order 02/06/2024 02/07/2024 02/08/2024 diphenhydrAMINE (BENADryl) injection 25 mg (COMPLETED) 25 mg, IntraVENous, Once, On 02/08/24 at 0505, For 1 dose 0515 (Given - Provid er: Aleisha Howell RN) haloperidol lactate (Haldol) injection 2.5 mg (COMPLETED) 2.5 mg, IntraVENous, Once, On Tue02/08/24 at 0505, For 1 dose, IM route of administration preferred. Because of the risk of TdP and QT prolongation, ECG monitoring is recommended if haloperidol is given IV 0517 (Given - Provid er: Aleisha Howell RN) LORazepam (Ativan) injection 1 mg (COMPLETED) 1 mg, IntraVENous, Once, On Tue02/08/24 at 0505, For 1 dose, For IV doses dilute dose with 1ml NS. 0519 (Given - Provid er: Aleisha Howell RN) magnesium oxide (Mag-Ox) tablet 400 mg (COMPLETED) 400 mg, Oral, Once, On Tue02/08/24 at 0635, For 1 dose 0657 (Given - Provid er: Aleisha Howell RN) potassium chloride (Klor-Con) packet 40 mEq (COMPLETED) 40 mEq, Oral, Once, On Tue02/08/24 at 0600, For 1 dose, Dissolve each packet in 4 ounces of water = 5 mEq per 1 oz fluid., Indications: Hypokalemia 0608 (Given - Provid er: Aleisha Howell RN) sodium chloride 0.9 % bolus 1,000 mL (COMPLETED) 1,000 mL, IntraVENous, at 1,000 mL/hr, Administer over 1 Hours, Once, On Tue02/08/24 at 0505, For 1 dose 0515 (New Bag - Prov ider: Aleisha Howell RN)0615 (Stopped - Provider: Aleisha Howell RN) Scheduled Medication Order 02/11/2024 02/12/2024 02/13/2024 acetaminophen (Ofirmev) IVPB 1,000 mg (CANCELED) 1,000 mg, IntraVENous, at 400 mL/hr, Administer over 15 Minutes, Every 8 hours, First dose on Tue02/11/24 at 1630, For 9 doses 1606 (New Bag - Provider: Valery Hernandez RN)1621 (Stopped - Provider: Valery Hernandez RN) 0030 (New Bag - Provider: Debbie Pyle RN)0045 (Stopped - Provider: Debbie Pyle RN)0850 (New Bag - Provider: Valery Hernandez RN)0905 (Stopped - Provider: Valery Hernandez RN) acetaminophen (Tylenol) tablet 1,000 mg 1,000 mg, Oral, Every 8 hours, First dose on Tue02/12/24 at 1400, Maximum dose of acetaminophen is 4000 mg from all sources in 24 hours. 1412 (Given - Provider: Valery Hernandez RN)2121 (Given - Provider: Raiza Chang DESIREE) 0517 (Given - Provider: Raiza Chang, DESIREE)1400 (Canceled Entry - Provider: Automatic Discharge Provider - Comment: Automatically canceled at discontinue of medication order) atorvastatin (Lipitor) tablet 40 mg 40 mg, Oral, Nightly, First dose on Tue02/13/24 at 2100 bacitracin-polymyxin b (Polysporin) ointment Topical, 2 times daily, First dose on Tue02/12/24 at 1245 1412 (Given - Provider: Valery Hernandez, DESIREE)2011 (Given - Provider: Raiza Chang, DESIREE) 0926 (Given - Provider: Patt Myers, RN) carvedilol (Coreg) tablet 6.25 mg 6.25 mg, Oral, 2 times daily with meals, First dose on Tue02/13/24 at 0915, Hold for SBP < 110, HR <65 0919 (Given - Provider: Patt Myers, DESIREE)1700 (Canceled Entry - Provider: Automatic Discharge Provider - Comment: Automatically canceled at discontinue of medication order) folic acid 1 mg in sodium chloride 0.9 % 50 mL IVPB 1 mg, IntraVENous, at 100 mL/hr, Administer over 30 Minutes, Daily, First dose (after last modification) on Tue02/13/24 at 0600, For 2 doses 0526 (New Bag - Provider: Raiza Chang, DESIREE)0556 (Stopped - Provider: Raiza Chang, DESIREE) lisinopril tablet 5 mg 5 mg, Oral, Daily, First dose on Tue02/12/24 at 1200 1213 (Given - Provider: Valery Hernandez RN) 0920 (Given - Provider: Patt Myers, DESIREE) magnesium oxide (Mag-Ox) tablet 400 mg 400 mg, Oral, Daily, First dose on Tue02/13/24 at 0915 1110 (Given - Provider: Patt Myers, DESIREE) magnesium sulfate IVPB premix 2,000 mg (COMPLETED) 2,000 mg, IntraVENous, at 25 mL/hr, Administer over 2 Hours, Once, On Tue02/12/24 at 0415, For 1 dose, Recommended infusion rate not to exceed 1,000 mg (milligrams) per hour. 0417 (New Bag - Provider: Debbie Pyle RN)0617 (Stopped - Provider: Debbie Pyle RN) magnesium sulfate IVPB premix 2,000 mg (COMPLETED) 2,000 mg, IntraVENous, at 25 mL/hr, Administer over 2 Hours, Once, On 02/12/24 at 1800, For 1 dose, Recommended infusion rate not to exceed 1,000 mg (milligrams) per hour. 1820 (New Bag - Provider: Valery Hernandez RN)2020 (Stopped - Provider: Raiza Chang, DESIREE) mupirocin (Bactroban) 2 % ointment 1 Application 1 Application, Nasal, 2 times daily, First dose on 02/11/24 at 2100, For 5 days, Indications: MRSA Nasal Decolonization 2010 (Given - Provider: Debbie Pyle RN) 0850 (Given - Provider: Valery Hernandez, DESIREE)2011 (Given - Provider: Raiza Chang RN) 0920 (Given - Provider: Patt Myers RN) pantoprazole (ProtoNix) 40 mg in sodium chloride (PF) 0.9 % 10 mL injection (CANCELED)(Linked Group 1) 40 mg, IntraVENous, Administer over 2 Minutes, Nightly, First dose on 02/11/24 at 2100, Give only if unable to tolerate po. 2010 (Given - Provider: Debbie Pyle RN) pantoprazole (ProtoNix) EC tablet 40 mg 40 mg, Oral, Daily before breakfast, First dose on Tue02/13/24 at 0600, Do not crush, chew, or split. 517 (Given - Provider: Raiza Chang, DESIREE) PHENobarbital (Luminal) injection 100 mg 100 mg, IntraVENous, Every 4 hours, First dose (after last modification) on 02/12/24 at 1800, Administer no faster than 1 mg/kg/minute, to a max of 60 mg/min in adults. 1820 (Given - Provider: Valery Hernandez RN)2120 (Given - Provider: Raiza Chang, DESIREE) 015 (Self Administered Via Pump - Provider: Raiza Chang RN)0516 (Given - Provider: Raiza Chang RN)0920 (Given - Provider: Patt Myers RN)1400 (Canceled Entry - Provider: Automatic Discharge Provider - Comment: Automatically canceled at discontinue of medication order) PHENobarbital (Luminal) injection 130 mg (CANCELED) 130 mg, IntraVENous, 3 times daily, First dose on 02/11/24 at 2200, Administer no faster than 1 mg/kg/minute, to a max of 60 mg/min in adults. 2147 (Given - Provider: Debbie Pyle RN) 0850 (Given - Provider: Valery Hernandez RN)1300 (Given - Provider: Valery Hernandez RN) polyethylene glycol (PEG) 3350 (Miralax) packet 17 g 17 g, Oral, Daily, First dose on 02/12/24 at 0915 0915 (Not Given - Provider: Valery Hernandez RN - Reason: NPO) 0900 (Not Given - Provider: Patt Myers RN - Reason: Other - Comment: frequent BM) potassium chloride 40 mEq in NS 500 mL IVPB (premix) (COMPLETED) 40 mEq, IntraVENous, at 125 mL/hr, Administer over 4 Hours, Once, On 02/11/24 at 1700, For 1 dose, Max infusion rate = 10 mEq/hr 1651 (New Bag - Provider: Valery Hernandez RN)2051 (Stopped - Provider: Debbie Pyle RN) potassium chloride 40 mEq in NS 500 mL IVPB (premix) (COMPLETED) 40 mEq, IntraVENous, at 125 mL/hr, Administer over 4 Hours, Once, On 02/12/24 at 0645, For 1 dose, Max infusion rate = 10 mEq/hr 0737 (New Bag - Provider: Valery Hernandez RN)1137 (Stopped - Provider: Valery Hernandez RN) sennosides (Senokot) tablet 8.6 mg 8.6 mg (1 tablet), Oral, Nightly, First dose on 02/12/24 at 2100 2100 (Not Given - Provider: Raiza Chang RN - Reason: Patient/family refused) sodium chloride 0.9% (NS) flush 30 mL 30 mL, IntraVENous, Every 6 hours, First dose on 02/11/24 at 1545 1545 (Not Given - Provider: Valery Hernandez RN - Reason: IV Fluids Infusing)2145 (Not Given - Provider: Debbie Pyle RN - Reason: IV Fluids Infusing) 0345 (Not Given - Provider: Debbie Pyle RN - Reason: IV Fluids Infusing)0850 (Given - Provider: Valery Hernandez RN)1545 (Not Given - Provider: Valery Hernandez RN - Reason: IV Fluids Infusing)2122 (Given - Provider: Raiza Chang RN) 0517 (Given - Provider: Raiza Chang RN)0926 (Given - Provider: Patt Myers RN)1545 (Canceled Entry - Provider: Automatic Discharge Provider - Comment: Automatically canceled at discontinue of medication order) thiamine (Vitamin B1) 200 mg in sodium chloride 0.9 % 100 mL IVPB 200 mg, IntraVENous, at 200 mL/hr, Administer over 30 Minutes, 2 times daily, First dose on 02/11/24 at 1645, For 3 days, Protect from light. 2010 (New Bag - Provider: Debbie Pyle RN - Comment: limited access)2040 (Stopped - Provider: Debbie Pyle RN) 0527 (New Bag - Provider: Debbie Pyle RN)0557 (Stopped - Provider: Debbie Pyle RN)1611 (New Bag - Provider: Valery Hernandez RN)1641 (Stopped - Provider: Valery Hernandez RN) 0527 (New Bag - Provider: Raiza Chang RN)0557 (Stopped - Provider: Raiza Chang RN)1500 (Canceled Entry - Provider: Automatic Discharge Provider - Comment: Automatically canceled at discontinue of medication order) Continuous Medication Order 02/11/2024 02/12/2024 02/13/2024 dexmedeTOMIDine in NS (Precedex) 400 mcg in 100 mL (4 mcg/mL) infusion (CANCELED) 0.1-1.5 mcg/kg/hr 70.5 kg (1.7625-26.4375 mL/hr, rounded to 1.76-26.44 mL/hr), IntraVENous, Continuous, Starting on 02/11/24 at 2245, If Titrate Infusion? is No: Disregard instructions below. If Titrate infusion? is Yes: Titrate in increments of 0.2 mcg/kg/hr no more frequently than every 30 minutes to goal of therapy. If after titration rate change patient exhibits adverse hemodynamic response, next titration rate change may be adjusted by one-half of the previous rate change. If patient fails sedation interruption, resume dexmedetomidine infusion at 50% of previous rate., Titrate Infusion? Yes, Initial Infusion Dose: 0.2 mcg/kg/hr, Goal of Therapy: RASS 0 to -1, Contact Provider if: New onset HR less than 50 bpm, New onset SBP less than 90 mmHg, Patient is receiving maximum dose and is not achieving the goal of therapy 2242 (New Bag - Provider: Debbie Pyle RN)2330 (Rate/Dose Change - Provider: Debbie Pyle RN) 0004 (Rate/Dose Change - Provider: Debbie Pyle RN)0100 (Rate/Dose Change - Provider: Debbie Pyle RN)0254 (Rate/Dose Change - Provider: Debbie Pyle RN)0400 (Rate/Dose Change - Provider: Debbie Pyle RN)0900 (Rate/Dose Change - Provider: Valery Hernandez RN)0931 (Stopped - Provider: Valery Hernandez RN) sodium chloride 0.9 % infusion (CANCELED) 75 mL/hr, IntraVENous, Continuous, Starting on 02/11/24 at 1545 1548 (New Bag - Provider: Valery Hernandez RN) 1400 (Stopped - Provider: Valery Hernandez RN) PRN Medication Order 02/11/2024 02/12/2024 02/13/2024 albuterol 108 (90 Base) MCG/ACT inhaler 2 puff 2 puff, Inhalation, Every 4 hours PRN, wheezing, Starting on 02/12/24 at 114 0920 (Given - Provider: Patt Myers RN) hydrALAZINE (Apresoline) injection 10 mg (CANCELED) 10 mg, IntraVENous, Every 4 hours PRN, high blood pressure, Second line, give for blood pressure greater than 140 hold for heart greater than 100 bpm, Starting on 02/11/24 at 1534 1827 (Given - Provider: Valery Hernandez RN) hydrALAZINE (Apresoline) injection 10 mg 10 mg, IntraVENous, Every 3 hours PRN, high blood pressure, Second line, give for blood pressure greater than 140 hold for heart greater than 100 bpm, Starting on 02/11/24 at 1921 2303 (Given - Provider: Debbie Pyle RN) 0402 (Given - Provider: Debbie Pyle RN) labetalol (Normodyne,Trandate) injection 10 mg (CANCELED) 10 mg, IntraVENous, Every 4 hours PRN, high blood pressure, First line, give for blood pressure greater than 140 hold for heart rate less than 60 bpm, Starting on 02/11/24 at 1534 1549 (Given - Provider: Valery Hernandez RN) labetalol (Normodyne,Trandate) injection 10 mg 10 mg, IntraVENous, Every 3 hours PRN, high blood pressure, First line, give for blood pressure greater than 140 hold for heart rate less than 60 bpm, Starting on 02/11/24 at 1922 2216 (Given - Provider: Debbie Pyle RN) 0303 (Given - Provider: Debbie Pyle RN) LORazepam (Ativan) injection 1 mg(Linked Group 2) 1 mg, IntraVENous, Every 1 hour PRN, withdrawal, For alcohol withdrawal, Starting on 02/11/24 at 1546, For CIWA score 8 to 10. If both oral and intravenous CIWA medications ordered, use intravenous if unable to tolerate oral equivalent. Reassess CIWA one hour after each dose of medication and as needed. For IV doses dilute dose with 1ml NS. 1851 (Given - Provider: Valery Hernandez RN)2004 (See Alternative - Provider: Debbie Pyle RN) 1213 (See Alternative - Provider: Valrey Hernandez RN)1738 (See Alternative - Provider: Valery Hernandez RN)2011 (Given - Provider: Raiza Chang RN) 0048 (See Alternative - Provider: Raiza Chang RN)0516 (See Alternative - Provider: Raiza Chang RN)0936 (See Alternative - Provider: Patt Myers, DESIREE)1110 (See Alternative - Provider: Patt Myers RN) LORazepam (Ativan) injection 2 mg(Linked Group 2) 2 mg, IntraVENous, Every 1 hour PRN, withdrawal, For alcohol withdrawal., Starting on 02/11/24 at 1546, For CIWA score 11 to 15. If both oral and intravenous CIWA medications ordered, use intravenous if unable to tolerate oral equivalent. Reassess CIWA one hour after each dose of medication and as needed. For IV doses dilute dose with 1ml NS. 1850 (See Alternative - Provider: Valery Hernandez RN)2004 (See Alternative - Provider: Debbie Pyle RN) 121 (Given - Provider: Valery Hernandez RN)1737 (Given - Provider: Valery Hernandez RN)2011 (See Alternative - Provider: Raiza Chang RN) 8 (See Alternative - Provider: Raiza Chang RN)0516 (See Alternative - Provider: Raiza Chang RN)0936 (See Alternative - Provider: Patt Myers RN)1110 (See Alternative - Provider: Patt Myers RN) LORazepam (Ativan) injection 3 mg(Linked Group 2) 3 mg, IntraVENous, Every 1 hour PRN, withdrawal, For alcohol withdrawal, Starting on 02/11/24 at 1546, For CIWA score 16 to 20. If both oral and intravenous CIWA medications ordered, use intravenous if unable to tolerate oral equivalent. Reassess CIWA one hour after each dose of medication and as needed. For IV doses dilute dose with 1ml NS. 1850 (See Alternative - Provider: Valery Hernandez RN)2004 (Given - Provider: Debbie Pyle RN - Comment: CIWA 18) 1212 (See Alternative - Provider: Valery Hernandez RN)173 (See Alternative - Provider: Valery Hernandez RN)2011 (See Alternative - Provider: Raiza Chang RN) 8 (See Alternative - Provider: Raiza Chang RN)0516 (See Alternative - Provider: Raiza Chang RN)0936 (See Alternative - Provider: Patt Myers RN)1110 (See Alternative - Provider: Patt Myers RN) LORazepam (Ativan) injection 4 mg(Linked Group 2) 4 mg, IntraVENous, Every 1 hour PRN, withdrawal, For alcohol withdrawal, Starting on 02/11/24 at 1546, For CIWA score greater than 20. If both oral and intravenous CIWA medications ordered, use intravenous if unable to tolerate oral equivalent. Reassess CIWA one hour after each dose of medication and as needed. For IV doses dilute dose with 1ml NS. 1850 (See Alternative - Provider: Valery Hernandez RN)2004 (See Alternative - Provider: Debbie Pyle RN) 1212 (See Alternative - Provider: Valery Hernandez RN)173 (See Alternative - Provider: Valery Hernandez RN)2011 (See Alternative - Provider: Raiza Chang RN) 47 (See Alternative - Provider: Raiza Chang RN)0516 (See Alternative - Provider: Raiza Chang RN)0936 (See Alternative - Provider: Patt Myers RN)1110 (See Alternative - Provider: Patt Myers RN) LORazepam (Ativan) tablet 1 mg(Linked Group 2) 1 mg, Oral, Every 1 hour PRN, other, For alcohol withdrawal, Starting on 02/11/24 at 1546, For CIWA score 8 to 10. Reassess CIWA one hour after each dose of medication and as needed. 1850 (See Alternative - Provider: Valery Hernandez RN)2004 (See Alternative - Provider: Debbie Pyle RN) 1212 (See Alternative - Provider: Valery Hernandez RN)1737 (See Alternative - Provider: Valery Hernandez RN)2011 (See Alternative - Provider: Raiza Chang RN) 0048 (Given - Provider: Raiza Chang RN)0516 (Given - Provider: Raiza Chang RN)0936 (Given - Provider: Patt Myers RN - Comment: ciwa 8)1110 (Given - Provider: Patt Myers RN) LORazepam (Ativan) tablet 2 mg(Linked Group 2) 2 mg, Oral, Every 1 hour PRN, other, For alcohol withdrawal, Starting on 02/11/24 at 1546, For CIWA score 11 to 15. Reassess CIWA one hour after each dose of medication and as needed. 1850 (See Alternative - Provider: Valery Hernandez RN)2004 (See Alternative - Provider: Debbie Pyle RN) 1212 (See Alternative - Provider: Valery Hernandez RN)173 (See Alternative - Provider: Valery Hernandez RN)2011 (See Alternative - Provider: Raiza Chang RN) 47 (See Alternative - Provider: Raiza Chang RN)0516 (See Alternative - Provider: Raiza Chang RN)0936 (See Alternative - Provider: Patt Myers RN)1110 (See Alternative - Provider: Patt Myers RN) LORazepam (Ativan) tablet 3 mg(Linked Group 2) 3 mg, Oral, Every 1 hour PRN, other, For alcohol withdrawal, Starting on 02/11/24 at 1546, For CIWA score 16 to 20. Reassess CIWA one hour after each dose of medication and as needed. 1850 (See Alternative - Provider: Valery Hernandez RN)2004 (See Alternative - Provider: Debbie Pyle RN) 1212 (See Alternative - Provider: Valery Hernandez RN)1737 (See Alternative - Provider: Valery Hernandez RN)2011 (See Alternative - Provider: Raiza Chang RN) 8 (See Alternative - Provider: Raiza Chang RN)0516 (See Alternative - Provider: Raiza Chang RN)0936 (See Alternative - Provider: Patt Myers RN)1110 (See Alternative - Provider: Patt Myers RN) LORazepam (Ativan) tablet 4 mg(Linked Group 2) 4 mg, Oral, Every 1 hour PRN, other, For alcohol withdrawal, Starting on 02/11/24 at 1546, For CIWA score greater than 20. Reassess CIWA one hour after each dose of medication and as needed. 1851 (See Alternative - Provider: Valery Hernandez, DESIREE)2004 (See Alternative - Provider: Debbie Pyle RN) 1213 (See Alternative - Provider: Valery Hernandez RN)1738 (See Alternative - Provider: Valery Hernandez, RN)2011 (See Alternative - Provider: Raiza Chang, DESIREE) 0048 (See Alternative - Provider: Raiza Chang, DESIREE)0516 (See Alternative - Provider: Raiza Chang, DESIREE)0936 (See Alternative - Provider: Patt Myers, DESIREE)1110 (See Alternative - Provider: Patt Myers, DESIREE) naloxone (Narcan) injection 0.4 mg 0.4 mg, IntraVENous, Every 5 min PRN, opioid reversal, respiratory depression, Starting on 02/11/24 at 1535, +++ For RR <10, pinpoint pupils, over sedation for opioid reversal - MUST notify cotton program technician provider immediately after first dose, may give IM or SQ if no IV access +++ ondansetron (Zofran) injection 4 mg(Linked Group 3) 4 mg, IntraVENous, Every 6 hours PRN, nausea, vomiting, Starting on 02/11/24 at 1532, 1st Line. Give IV if patient is unable to take orally. If inadequate response within 60 minutes, proceed to next-line agent or contact provider if no further options ordered. ondansetron ODT (Zofran-ODT) disintegrating tablet 4 mg(Linked Group 3) 4 mg, Oral, Every 8 hours PRN, nausea, vomiting, Starting on 02/11/24 at 1532, 1st Line. If inadequate response within 60 minutes, proceed to next-line agent or contact provider if no further options ordered. Patient should allow tablet to dissolve on tongue. Do not remove from blister pack until just before administering. sodium chloride 0.9% (NS) flush 30 mL 30 mL, IntraVENous, PRN, line care, Starting on 02/11/24 at 1532 Linked Groups Order Group 1: pantoprazole (ProtoNix) EC tablet 40 mg (CANCELED) 40 mg, Oral, Nightly, First dose on 10/26/24 at 2100, Do not crush, chew, or split. Or pantoprazole (ProtoNix) 40 mg in sodium chloride (PF) 0.9 % 10 mL injection (CANCELED)Jump to med 40 mg, IntraVENous, Administer over 2 Minutes, Nightly, First dose on 02/11/24 at 2100, Give only if unable to tolerate po. Group 2: LORazepam (Ativan) tablet 1 mgJump to med 1 mg, Oral, Every 1 hour PRN, other, For alcohol withdrawal, Starting on 02/11/24 at 1546, For CIWA score 8 to 10. Reassess CIWA one hour after each dose of medication and as needed. Or LORazepam (Ativan) injection 1 mgJump to med 1 mg, IntraVENous, Every 1 hour PRN, withdrawal, For alcohol withdrawal, Starting on 02/11/24 at 1546, For CIWA score 8 to 10. If both oral and intravenous CIWA medications ordered, use intravenous if unable to tolerate oral equivalent. Reassess CIWA one hour after each dose of medication and as needed. For IV doses dilute dose with 1ml NS. Or LORazepam (Ativan) tablet 2 mgJump to med 2 mg, Oral, Every 1 hour PRN, other, For alcohol withdrawal, Starting on 02/11/24 at 1546, For CIWA score 11 to 15. Reassess CIWA one hour after each dose of medication and as needed. Or LORazepam (Ativan) injection 2 mgJump to med 2 mg, IntraVENous, Every 1 hour PRN, withdrawal, For alcohol withdrawal., Starting on 02/11/24 at 1546, For CIWA score 11 to 15. If both oral and intravenous CIWA medications ordered, use intravenous if unable to tolerate oral equivalent. Reassess CIWA one hour after each dose of medication and as needed. For IV doses dilute dose with 1ml NS. Or LORazepam (Ativan) tablet 3 mgJump to med 3 mg, Oral, Every 1 hour PRN, other, For alcohol withdrawal, Starting on 02/11/24 at 1546, For CIWA score 16 to 20. Reassess CIWA one hour after each dose of medication and as needed. Or LORazepam (Ativan) injection 3 mgJump to med 3 mg, IntraVENous, Every 1 hour PRN, withdrawal, For alcohol withdrawal, Starting on 02/11/24 at 1546, For CIWA score 16 to 20. If both oral and intravenous CIWA medications ordered, use intravenous if unable to tolerate oral equivalent. Reassess CIWA one hour after each dose of medication and as needed. For IV doses dilute dose with 1ml NS. Or LORazepam (Ativan) tablet 4 mgJump to med 4 mg, Oral, Every 1 hour PRN, other, For alcohol withdrawal, Starting on 02/11/24 at 1546, For CIWA score greater than 20. Reassess CIWA one hour after each dose of medication and as needed. Or LORazepam (Ativan) injection 4 mgJump to med 4 mg, IntraVENous, Every 1 hour PRN, withdrawal, For alcohol withdrawal, Starting on 02/11/24 at 1546, For CIWA score greater than 20. If both oral and intravenous CIWA medications ordered, use intravenous if unable to tolerate oral equivalent. Reassess CIWA one hour after each dose of medication and as needed. For IV doses dilute dose with 1ml NS. Group 3: ondansetron ODT (Zofran-ODT) disintegrating tablet 4 mgJump to med 4 mg, Oral, Every 8 hours PRN, nausea, vomiting, Starting on 02/11/24 at 1532, 1st Line. If inadequate response within 60 minutes, proceed to next-line agent or contact provider if no further options ordered. Patient should allow tablet to dissolve on tongue. Do not remove from blister pack until just before administering. Or ondansetron (Zofran) injection 4 mgJump to med 4 mg, IntraVENous, Every 6 hours PRN, nausea, vomiting, Starting on 02/11/24 at 1532, 1st Line. Give IV if patient is unable to take orally. If inadequate response within 60 minutes, proceed to next-line agent or contact provider if no further options ordered. Scheduled Medication Order 02/12/2024 02/13/2024 02/14/2024 Acetaminophen (Tylenol) 650 MG/20.3ML solution 1,000 mg(Linked Group 1) 1,000 mg, Per G Tube, Every 8 hours, First dose on Tue02/14/24 at 0630 0658 (See Alternativ e - Provider: Sydnie Thomson RN)1430 (Canceled Entry - Provider: Automatic Discharge Provider - Comment: Automatically canceled at discontinue of medication order) acetaminophen (Tylenol) tablet 1,000 mg (COMPLETED) 1,000 mg, Oral, Once, On Tue02/13/24 at 2220, For 1 dose, Maximum dose of acetaminophen is 4000 mg from all sources in 24 hours. 2236 (Given - Provider: Kelsi Landa RN) acetaminophen (Tylenol) tablet 1,000 mg (COMPLETED) 1,000 mg, Oral, Once, On Tue02/14/24 at 0205, For 1 dose, Maximum dose of acetaminophen is 4000 mg from all sources in 24 hours. 0206 (Given - Provid er: Rhoda Kim RN) acetaminophen (Tylenol) tablet 1,000 mg(Linked Group 1) 1,000 mg, Oral, Every 8 hours, First dose on Tue02/14/24 at 0630 0658 (Given - Provid er: Sydnie Thomson RN)1430 (Canceled Entry - Provider: Automatic Discharge Provider - Comment: Automatically canceled at discontinue of medication order) atorvastatin (Lipitor) tablet 40 mg 40 mg, Oral, Daily, First dose on Tue02/14/24 at 0900 0902 (Given - Provid er: Sandee Freire RN) carvedilol (Coreg) tablet 6.25 mg 6.25 mg, Oral, 2 times daily with meals, First dose on Tue02/14/24 at 0800 0902 (Given - Provid er: Sandee Freire RN) lisinopril tablet 5 mg 5 mg, Oral, Daily, First dose on Tue02/14/24 at 0900 0902 (Given - Provid er: Sandee Freire RN) LORazepam (Ativan) injection 0.5 mg (COMPLETED) 0.5 mg, IntraVENous, Once, On Tue02/14/24 at 0205, For 1 dose, For IV doses dilute dose with 1ml NS. 0208 (Given - Provid er: Rhoda Kim RN) mupirocin (Bactroban) 2 % ointment 1 Application 1 Application, Nasal, 2 times daily, First dose on Tue02/14/24 at 0900, For 5 days, Indications: MRSA Nasal Decolonization 1200 (Canceled Entry - Provider: Automatic Discharge Provider - Comment: Automatically canceled at discontinue of medication order) ondansetron (Zofran) injection 4 mg (COMPLETED) 4 mg, IntraVENous, Once, On Tue02/13/24 at 2220, For 1 dose 2236 (Given - Provider: Kelsi Landa RN) PHENobarbital tablet 64.8 mg 64.8 mg, Oral, 3 times daily, First dose on Tue02/14/24 at 0900 0902 (Given - Provid er: Sandee Freire RN)1400 (Canceled Entry - Provider: Automatic Discharge Provider - Comment: Automatically canceled at discontinue of medication order) polyethylene glycol (PEG) 3350 (Miralax) packet 17 g 17 g, Oral, Daily, First dose on Tue02/15/24 at 0600, 1st line for treatment of constipation - give scheduled if no bowel movement in past 24 hours. PRN Medication Order 02/12/2024 02/13/2024 02/14/2024 HYDROmorphone (Dilaudid) injection 0.25 mg(Linked Group 2) 0.25 mg, IntraVENous, Every 3 hours PRN, moderate pain (4-6), Starting on Tue02/14/24 at 0613, If oral and IV narcotics ordered, use oral first and only use IV if oral is ineffective or cannot take oral. Do Not give oral and IV within 1 hour of each other unless specifically ordered. HYDROmorphone (Dilaudid) injection 0.5 mg(Linked Group 2) 0.5 mg, IntraVENous, Every 3 hours PRN, severe pain (7-10), Starting on Tue02/14/24 at 0613, If oral and IV narcotics ordered, use oral first and only use IV if oral is ineffective or cannot take oral. Do Not give oral and IV within 1 hour of each other unless specifically ordered. naloxone (Narcan) injection 0.4 mg 0.4 mg, IntraVENous, Every 5 min PRN, opioid reversal, respiratory depression, Starting on Tue02/14/24 at 0618, +++ For RR <10, pinpoint pupils, over sedation for opioid reversal - MUST notify cotton program technician provider immediately after first dose, may give IM or SQ if no IV access +++ ondansetron (Zofran) injection 4 mg(Linked Group 3) 4 mg, IntraVENous, Every 6 hours PRN, nausea, vomiting, Starting on Tue02/14/24 at 0613, 1st Line. Give IV if patient is unable to take orally. If inadequate response within 60 minutes, proceed to next-line agent or contact provider if no further options ordered. ondansetron ODT (Zofran-ODT) disintegrating tablet 4 mg(Linked Group 3) 4 mg, Oral, Every 8 hours PRN, nausea, vomiting, Starting on Tue02/14/24 at 0613, 1st Line. If inadequate response within 60 minutes, proceed to next-line agent or contact provider if no further options ordered. Patient should allow tablet to dissolve on tongue. Do not remove from blister pack until just before administering. oxyCODONE (Roxicodone) immediate release tablet 10 mg(Linked Group 4) 10 mg, Oral, Every 4 hours PRN, severe pain (7-10), Starting on Tue02/14/24 at 0613 0658 (Given - Provid er: Sydnie Thomson RN) oxyCODONE (Roxicodone) immediate release tablet 5 mg(Linked Group 4) 5 mg, Oral, Every 4 hours PRN, moderate pain (4-6), Starting on Tue02/14/24 at 0613 0658 (See Alternativ e - Provider: Sydnie Thomson RN) Linked Groups Order Group 1: acetaminophen (Tylenol) tablet 1,000 mgJump to med 1,000 mg, Oral, Every 8 hours, First dose on Tue02/14/24 at 0630 Or Acetaminophen (Tylenol) 650 MG/20.3ML solution 1,000 mgJump to med 1,000 mg, Per G Tube, Every 8 hours, First dose on Tue02/14/24 at 0630 Group 2: HYDROmorphone (Dilaudid) injection 0.25 mgJump to med 0.25 mg, IntraVENous, Every 3 hours PRN, moderate pain (4-6), Starting on Tue02/14/24 at 0613, If oral and IV narcotics ordered, use oral first and only use IV if oral is ineffective or cannot take oral. Do Not give oral and IV within 1 hour of each other unless specifically ordered. Or HYDROmorphone (Dilaudid) injection 0.5 mgJump to med 0.5 mg, IntraVENous, Every 3 hours PRN, severe pain (7-10), Starting on Tue02/14/24 at 0613, If oral and IV narcotics ordered, use oral first and only use IV if oral is ineffective or cannot take oral. Do Not give oral and IV within 1 hour of each other unless specifically ordered. Group 3: ondansetron ODT (Zofran-ODT) disintegrating tablet 4 mgJump to med 4 mg, Oral, Every 8 hours PRN, nausea, vomiting, Starting on Tue02/14/24 at 0613, 1st Line. If inadequate response within 60 minutes, proceed to next-line agent or contact provider if no further options ordered. Patient should allow tablet to dissolve on tongue. Do not remove from blister pack until just before administering. Or ondansetron (Zofran) injection 4 mgJump to med 4 mg, IntraVENous, Every 6 hours PRN, nausea, vomiting, Starting on Tue02/14/24 at 06, 1st Line. Give IV if patient is unable to take orally. If inadequate response within 60 minutes, proceed to next-line agent or contact provider if no further options ordered. Group 4: oxyCODONE (Roxicodone) immediate release tablet 5 mgJump to med 5 mg, Oral, Every 4 hours PRN, moderate pain (4-6), Starting on Tue02/14/24 at 0613 Or oxyCODONE (Roxicodone) immediate release tablet 10 mgJump to med 10 mg, Oral, Every 4 hours PRN, severe pain (7-10), Starting on Tue02/14/24 at 0613 Scheduled Medication Order 03/04/2024 03/05/2024 03/06/2024 acamprosate (Campral) EC tablet 666 mg 666 mg, Oral, 3 times daily, First dose on Tue03/06/24 at 0900, Do not crush, chew, or split. 1033 (Given - Provid er: Bhavana Hoffman RN)1400 (Not Given - Provider: Bhavana Hoffman RN - Reason: Patient/family refused) Acetaminophen (Tylenol) 650 MG/20.3ML solution 1,000 mg(Linked Group 1) 1,000 mg, Per G Tube, Every 8 hours, First dose on Tue03/06/24 at 0820 1024 (See Alternativ e - Provider: Bhavana Hoffman RN)1620 (Canceled Entry - Provider: Automatic Discharge Provider - Comment: Automatically canceled at discontinue of medication order) acetaminophen (Tylenol) tablet 1,000 mg(Linked Group 1) 1,000 mg, Oral, Every 8 hours, First dose on Tue03/06/24 at 0820, Maximum dose of acetaminophen is 4000 mg from all sources in 24 hours. 1024 (Given - Provid er: Bhavana Hoffman RN)1620 (Canceled Entry - Provider: Automatic Discharge Provider - Comment: Automatically canceled at discontinue of medication order) buprenorphine-naloxone (Suboxone) 8-2 MG per sublingual film 2.25 Film 2.25 Film, SubLINGual, Daily, First dose on Tue03/06/24 at 0900 1024 (Given - Provid er: Bhavana Hoffman RN) busPIRone (Buspar) tablet 15 mg 15 mg, Oral, Every 8 hours, First dose on Tue03/06/24 at 0820 1031 (Given - Provid er: Bhavana Hoffman RN)1620 (Canceled Entry - Provider: Automatic Discharge Provider - Comment: Automatically canceled at discontinue of medication order) docusate sodium (Colace) capsule 100 mg 100 mg, Oral, 2 times daily, First dose on Tue03/06/24 at 1105, Do not crush or break. 1105 (Not Given - Pr ovider: Bhavana Hoffman RN - Reason: Patient/family refused) folic acid (Folvite) tablet 1 mg 1 mg, Oral, Daily, First dose on Tue03/06/24 at 0900 1031 (Given - Provid er: Bhavana Hoffman RN) influenza vaccine tiss-cult subunt (Flucelvax) STANDARD-DOSE injection 0.5 mL 0.5 mL, IntraMUSCular, Once, On Tue03/06/24 at 0900, For 1 dose 0900 (Canceled Entry - Provider: Automatic Discharge Provider - Comment: Automatically canceled at discontinue of medication order) lisinopril tablet 5 mg 5 mg, Oral, Daily, First dose on Tue03/06/24 at 0900 1032 (Given - Provid er: Bhavana Hoffman RN) magnesium oxide (Mag-Ox) tablet 400 mg 400 mg, Oral, Daily, First dose on Tue03/06/24 at 0900 1032 (Given - Provid er: Bhavana Hoffman RN) methocarbamol (Robaxin) injection 500 mg 500 mg, IntraVENous, Administer over 5 Minutes, Every 8 hours, First dose on Tue03/06/24 at 0820, For 3 days, Maximum dose: 3 g/day for no more than 3 consecutive days 1025 (Given - Provid er: Bhavana Hoffman RN)1620 (Canceled Entry - Provider: Automatic Discharge Provider - Comment: Automatically canceled at discontinue of medication order) polyethylene glycol (PEG) 3350 (Miralax) packet 17 g 17 g, Oral, Daily, First dose on Tue03/06/24 at 1105 1105 (Not Given - Pr ovider: Bhavana Hoffman RN - Reason: Patient/family refused) Potassium Chloride in NaCl IVPB 20 mEq (COMPLETED) 20 mEq, IntraVENous, Administer over 2 Hours, Once, On Tue03/06/24 at 0640, For 1 dose, Max infusion rate = 10 mEq/hr 0842 (New Bag - Prov ider: Bhavana Hoffman RN)0847 (Stopped - Provider: Bhavana Hoffman RN)1013 (Restarted - Provider: Bhavana Hoffman RN)1223 (Stopped - Provider: Bhavana Hoffman RN) prazosin (Minipress) capsule 10 mg 10 mg, Oral, Nightly, First dose on Tue03/06/24 at 2100 QUEtiapine (SEROquel) tablet 100 mg 100 mg, Oral, Nightly, First dose on Tue03/06/24 at 2100 sennosides (Senokot) tablet 8.6 mg 8.6 mg (1 tablet), Oral, Nightly, First dose on Tue03/06/24 at 2100 sertraline (Zoloft) tablet 150 mg 150 mg, Oral, Daily, First dose on Tue03/06/24 at 0900 1031 (Given - Provid er: Bhavana Hoffman RN) thiamine (Vitamin B1) tablet 100 mg 100 mg, Oral, Daily, First dose on Tue03/06/24 at 0900 1031 (Given - Provid er: Bhavana Hoffman RN) Continuous Medication Order 03/04/2024 03/05/2024 03/06/2024 lactated Ringer's (LR) infusion 100 mL/hr, IntraVENous, Continuous, Starting on Tue03/06/24 at 0820 1101 (New Bag - Prov ider: Bhavana Hoffman RN)1457 (Stopped - Provider: Bhavana Hoffman RN) PRN Medication Order 03/04/2024 03/05/2024 03/06/2024 hydrALAZINE (Apresoline) injection 10 mg 10 mg, IntraVENous, Every 4 hours PRN, high blood pressure, SBP>160, Starting on Tue03/06/24 at 0633 HYDROmorphone (Dilaudid) injection 0.25 mg(Linked Group 2) 0.25 mg, IntraVENous, Every 3 hours PRN, moderate pain (4-6), breakthrough, Starting on Tue03/06/24 at 0815, If oral and IV narcotics ordered, use oral first and only use IV if oral is ineffective or cannot take oral. Do Not give oral and IV within 1 hour of each other unless specifically ordered. HYDROmorphone (Dilaudid) injection 0.5 mg(Linked Group 2) 0.5 mg, IntraVENous, Every 3 hours PRN, severe pain (7-10), breakthrough, Starting on Tue03/06/24 at 0815, If oral and IV narcotics ordered, use oral first and only use IV if oral is ineffective or cannot take oral. Do Not give oral and IV within 1 hour of each other unless specifically ordered. LORazepam (Ativan) injection 1 mg(Linked Group 3) 1 mg, IntraVENous, Every 1 hour PRN, withdrawal, For alcohol withdrawal, Starting on Tue03/06/24 at 0815, For CIWA score 8 to 10. If both oral and intravenous CIWA medications ordered, use intravenous if unable to tolerate oral equivalent. Reassess CIWA one hour after each dose of medication and as needed. For IV doses dilute dose with 1ml NS. LORazepam (Ativan) injection 2 mg(Linked Group 3) 2 mg, IntraVENous, Every 1 hour PRN, withdrawal, For alcohol withdrawal., Starting on Tue03/06/24 at 0815, For CIWA score 11 to 15. If both oral and intravenous CIWA medications ordered, use intravenous if unable to tolerate oral equivalent. Reassess CIWA one hour after each dose of medication and as needed. For IV doses dilute dose with 1ml NS. LORazepam (Ativan) injection 3 mg(Linked Group 3) 3 mg, IntraVENous, Every 1 hour PRN, withdrawal, For alcohol withdrawal, Starting on Tue03/06/24 at 0815, For CIWA score 16 to 20. If both oral and intravenous CIWA medications ordered, use intravenous if unable to tolerate oral equivalent. Reassess CIWA one hour after each dose of medication and as needed. For IV doses dilute dose with 1ml NS. LORazepam (Ativan) injection 4 mg(Linked Group 3) 4 mg, IntraVENous, Every 1 hour PRN, withdrawal, For alcohol withdrawal, Starting on Tue03/06/24 at 0815, For CIWA score greater than 20. If both oral and intravenous CIWA medications ordered, use intravenous if unable to tolerate oral equivalent. Reassess CIWA one hour after each dose of medication and as needed. For IV doses dilute dose with 1ml NS. LORazepam (Ativan) tablet 1 mg(Linked Group 3) 1 mg, Oral, Every 1 hour PRN, other, For alcohol withdrawal, Starting on Tue03/06/24 at 0815, For CIWA score 8 to 10. Reassess CIWA one hour after each dose of medication and as needed. LORazepam (Ativan) tablet 2 mg(Linked Group 3) 2 mg, Oral, Every 1 hour PRN, other, For alcohol withdrawal, Starting on Tue03/06/24 at 0815, For CIWA score 11 to 15. Reassess CIWA one hour after each dose of medication and as needed. LORazepam (Ativan) tablet 3 mg(Linked Group 3) 3 mg, Oral, Every 1 hour PRN, other, For alcohol withdrawal, Starting on Tue03/06/24 at 0815, For CIWA score 16 to 20. Reassess CIWA one hour after each dose of medication and as needed. LORazepam (Ativan) tablet 4 mg(Linked Group 3) 4 mg, Oral, Every 1 hour PRN, other, For alcohol withdrawal, Starting on Tue03/06/24 at 0815, For CIWA score greater than 20. Reassess CIWA one hour after each dose of medication and as needed. naloxone (Narcan) injection 0.4 mg 0.4 mg, IntraVENous, Every 5 min PRN, opioid reversal, respiratory depression, Starting on Tue03/06/24 at 0817, +++ For RR <10, pinpoint pupils, over sedation for opioid reversal - MUST notify cotton program technician provider immediately after first dose, may give IM or SQ if no IV access +++ oxyCODONE (Roxicodone) immediate release tablet 10 mg(Linked Group 4) 10 mg, Oral, Every 4 hours PRN, severe pain (7-10), Starting on Tue03/06/24 at 0815 oxyCODONE (Roxicodone) immediate release tablet 5 mg(Linked Group 4) 5 mg, Oral, Every 4 hours PRN, moderate pain (4-6), Starting on Tue03/06/24 at 0815 promethazine (Phenergan) injection 12.5 mg(Linked Group 5) 12.5 mg, IntraMUSCular, Every 6 hours PRN, nausea, vomiting, Starting on Tue03/06/24 at 0848, Only to be given as IM injection. promethazine (Phenergan) suppository 12.5 mg(Linked Group 5) 12.5 mg, Rectal, Every 6 hours PRN, nausea, vomiting, Starting on Tue03/06/24 at 0848 promethazine (Phenergan) tablet 12.5 mg(Linked Group 5) 12.5 mg, Oral, Every 6 hours PRN, nausea, vomiting, Starting on Tue03/06/24 at 0848 Linked Groups Order Group 1: acetaminophen (Tylenol) tablet 1,000 mgJump to med 1,000 mg, Oral, Every 8 hours, First dose on Tue03/06/24 at 0820, Maximum dose of acetaminophen is 4000 mg from all sources in 24 hours. Or Acetaminophen (Tylenol) 650 MG/20.3ML solution 1,000 mgJump to med 1,000 mg, Per G Tube, Every 8 hours, First dose on Tue03/06/24 at 0820 Group 2: HYDROmorphone (Dilaudid) injection 0.25 mgJump to med 0.25 mg, IntraVENous, Every 3 hours PRN, moderate pain (4-6), breakthrough, Starting on Tue03/06/24 at 0815, If oral and IV narcotics ordered, use oral first and only use IV if oral is ineffective or cannot take oral. Do Not give oral and IV within 1 hour of each other unless specifically ordered. Or HYDROmorphone (Dilaudid) injection 0.5 mgJump to med 0.5 mg, IntraVENous, Every 3 hours PRN, severe pain (7-10), breakthrough, Starting on Tue03/06/24 at 0815, If oral and IV narcotics ordered, use oral first and only use IV if oral is ineffective or cannot take oral. Do Not give oral and IV within 1 hour of each other unless specifically ordered. Group 3: LORazepam (Ativan) tablet 1 mgJump to med 1 mg, Oral, Every 1 hour PRN, other, For alcohol withdrawal, Starting on Tue03/06/24 at 0815, For CIWA score 8 to 10. Reassess CIWA one hour after each dose of medication and as needed. Or LORazepam (Ativan) injection 1 mgJump to med 1 mg, IntraVENous, Every 1 hour PRN, withdrawal, For alcohol withdrawal, Starting on Tue03/06/24 at 0815, For CIWA score 8 to 10. If both oral and intravenous CIWA medications ordered, use intravenous if unable to tolerate oral equivalent. Reassess CIWA one hour after each dose of medication and as needed. For IV doses dilute dose with 1ml NS. Or LORazepam (Ativan) tablet 2 mgJump to med 2 mg, Oral, Every 1 hour PRN, other, For alcohol withdrawal, Starting on Tue03/06/24 at 0815, For CIWA score 11 to 15. Reassess CIWA one hour after each dose of medication and as needed. Or LORazepam (Ativan) injection 2 mgJump to med 2 mg, IntraVENous, Every 1 hour PRN, withdrawal, For alcohol withdrawal., Starting on Tue03/06/24 at 0815, For CIWA score 11 to 15. If both oral and intravenous CIWA medications ordered, use intravenous if unable to tolerate oral equivalent. Reassess CIWA one hour after each dose of medication and as needed. For IV doses dilute dose with 1ml NS. Or LORazepam (Ativan) tablet 3 mgJump to med 3 mg, Oral, Every 1 hour PRN, other, For alcohol withdrawal, Starting on Tue03/06/24 at 0815, For CIWA score 16 to 20. Reassess CIWA one hour after each dose of medication and as needed. Or LORazepam (Ativan) injection 3 mgJump to med 3 mg, IntraVENous, Every 1 hour PRN, withdrawal, For alcohol withdrawal, Starting on Tue03/06/24 at 0815, For CIWA score 16 to 20. If both oral and intravenous CIWA medications ordered, use intravenous if unable to tolerate oral equivalent. Reassess CIWA one hour after each dose of medication and as needed. For IV doses dilute dose with 1ml NS. Or LORazepam (Ativan) tablet 4 mgJump to med 4 mg, Oral, Every 1 hour PRN, other, For alcohol withdrawal, Starting on Tue03/06/24 at 0815, For CIWA score greater than 20. Reassess CIWA one hour after each dose of medication and as needed. Or LORazepam (Ativan) injection 4 mgJump to med 4 mg, IntraVENous, Every 1 hour PRN, withdrawal, For alcohol withdrawal, Starting on Tue03/06/24 at 0815, For CIWA score greater than 20. If both oral and intravenous CIWA medications ordered, use intravenous if unable to tolerate oral equivalent. Reassess CIWA one hour after each dose of medication and as needed. For IV doses dilute dose with 1ml NS. Group 4: oxyCODONE (Roxicodone) immediate release tablet 5 mgJump to med 5 mg, Oral, Every 4 hours PRN, moderate pain (4-6), Starting on Tue03/06/24 at 0815 Or oxyCODONE (Roxicodone) immediate release tablet 10 mgJump to med 10 mg, Oral, Every 4 hours PRN, severe pain (7-10), Starting on Tue03/06/24 at 0815 Group 5: promethazine (Phenergan) tablet 12.5 mgJump to med 12.5 mg, Oral, Every 6 hours PRN, nausea, vomiting, Starting on Tue03/06/24 at 0848 Or promethazine (Phenergan) injection 12.5 mgJump to med 12.5 mg, IntraMUSCular, Every 6 hours PRN, nausea, vomiting, Starting on Tue03/06/24 at 0848, Only to be given as IM injection. Or promethazine (Phenergan) suppository 12.5 mgJump to med 12.5 mg, Rectal, Every 6 hours PRN, nausea, vomiting, Starting on Tue03/06/24 at 0848 Scheduled Medication Order 04/22/2022 04/23/2022 04/24/2022 acetaminophen (Tylenol) tablet 1,000 mg (COMPLETED) 1,000 mg, Oral, Once, On 04/24/22 at 1545, For 1 dose, Maximum dose of acetaminophen is 4000 mg from all sources in 24 hours. 1556 (Given - Provid er: Jeanette Manzanares RN) cyclobenzaprine (Flexeril) tablet 10 mg (COMPLETED) 10 mg, Oral, Once, On 04/24/22 at 1555, For 1 dose 1557 (Given - Provid er: Jeanette Manzanares RN) ketorolac (Toradol) injection 30 mg (COMPLETED) 30 mg, IntraMUSCular, Once, On 04/24/22 at 1545, For 1 dose 1557 (Given - Provid er: Jeanette Manzanares RN) Scheduled Medication Order 05/26/2024 05/27/2024 05/28/2024 acetaminophen (Tylenol) tablet 1,000 mg 1,000 mg, Oral, Every 8 hours, First dose on Tue05/28/24 at 0000, Maximum dose of acetaminophen is 4000 mg from all sources in 24 hours. 0135 (Given - Provid er: Phillip Wells RN)0921 (Given - Provider: Lalito Sarabia RN)1600 (Canceled Entry - Provider: Automatic Discharge Provider - Comment: Automatically canceled at discontinue of medication order) buprenorphine-naloxone (Suboxone) 2-0.5 MG per sublingual film 3 Film 3 Film, SubLINGual, Every 4 hours while awake, First dose on Tue05/28/24 at 0800 0800 (Not Given - Pr ovider: Lalito Sarabia RN - Reason: Contraindicated - Comment: is sleeping)1200 (Not Given - Provider: Lalito Sarabia RN - Reason: Contraindicated - Comment: He is still sleeping.)1600 (Canceled Entry - Provider: Automatic Discharge Provider - Comment: Automatically canceled at discontinue of medication order) buprenorphine-naloxone (Suboxone) 2-0.5 MG per sublingual film 3 Film (COMPLETED) 3 Film, SubLINGual, Every 4 hours, First dose on 05/27/24 at 1700, For 2 doses 1640 (Given - Provider: Michelle Chan RN)2146 (Given - Provider: Patt Snowden RN) buprenorphine-naloxone (Suboxone) 8-2 MG per sublingual film 1 Film (COMPLETED) 1 Film, SubLINGual, Once, On 05/27/24 at 0925, For 1 dose 0946 (Given - Provider: Michelle Chan RN) busPIRone (Buspar) tablet 15 mg 15 mg, Oral, 3 times daily, First dose on 05/27/24 at 1640 1811 (Given - Provider: Michelle Chan RN)2147 (Given - Provider: Patt Snowden RN) 0922 (Given - Provider: Lalito Sarabia RN)1328 (Given - Provider: Barbara Hernandez RN) folic acid (Folvite) tablet 1 mg (CANCELED) 1 mg, Oral, Daily, First dose on 05/27/24 at 0925 0946 (Given - Provider: Michelle Chan RN) folic acid (Folvite) tablet 1 mg 1 mg, Oral, Daily, First dose (after last modification) on Tue05/28/24 at 0900 0922 (Given - Provid er: Lalito Sarabia RN) LORazepam (Ativan) injection 1 mg (COMPLETED) 1 mg, IntraVENous, Once, On 05/27/24 at 0925, For 1 dose, For IV doses dilute dose with 1ml NS. 0946 (Given - Provider: Michelle Chan RN) LORazepam (Ativan) injection 1 mg (COMPLETED) 1 mg, IntraVENous, Once, On 05/27/24 at 1225, For 1 dose, For IV doses dilute dose with 1ml NS. 1407 (Given - Provider: Michelle Chan RN) magnesium sulfate IVPB premix 2,000 mg (COMPLETED) 2,000 mg, IntraVENous, at 25 mL/hr, Administer over 2 Hours, Once, On 05/27/24 at 1030, For 1 dose, Recommended infusion rate not to exceed 1,000 mg (milligrams) per hour. 1109 (New Bag - Provider: Michelle Chan RN)1309 (Stopped - Provider: Michelle Chan RN) magnesium sulfate IVPB premix 2,000 mg 2,000 mg, IntraVENous, at 25 mL/hr, Administer over 2 Hours, Once, On Tue05/28/24 at 1325, For 1 dose, Recommended infusion rate not to exceed 1,000 mg (milligrams) per hour. 1325 (Canceled Entry - Provider: Automatic Discharge Provider - Comment: Automatically canceled at discontinue of medication order) pantoprazole (ProtoNix) EC tablet 40 mg 40 mg, Oral, Daily, First dose on Tue05/27/24 at 1640, Do not crush, chew, or split. 1811 (Given - Provider: Michelle Chan RN) 0922 (Given - Provider: Lalito Sraabia RN) PHENobarbital (Luminal) injection 100 mg 100 mg, IntraVENous, Every 4 hours, First dose on Tue05/27/24 at 1700, HOLD if sedated, unsteady gait, SBP < 100, DBP < 60, HR < 50 Administer no faster than 1 mg/kg/minute, to a max of 60 mg/min in adults. 1640 (Given - Provider: Mihcelle Chan RN)2149 (Given - Provider: Patt Snowden RN) 0135 (Given - Provider: Phillip Wells RN)0621 (Not Given - Provider: Kayleen Us RN - Reason: Contraindicated - Comment: Pt sedated)0926 (Given - Provider: Lalito Sarabia, DESIREE)1328 (Given - Provider: Barbara Hernandez RN) PHENobarbital tablet 97.2 mg (COMPLETED) 97.2 mg, Oral, Once, On Tue05/27/24 at 0925, For 1 dose 0946 (Given - Provider: Michelle Chan RN) PHENobarbital tablet 97.2 mg (CANCELED) 97.2 mg, Oral, Every 4 hours, First dose on Tue05/27/24 at 1400 1407 (Given - Provider: Michelle Chan RN) potassium chloride (Klor-Con) packet 40 mEq (COMPLETED) 40 mEq, Oral, Once, On Tue05/28/24 at 0640, For 1 dose, Dissolve each packet in 4 ounces of water = 5 mEq per 1 oz fluid., Indications: Hypokalemia 0704 (Given - Provid er: Mundo Gonzalez RN) potassium chloride CR (Klor-Con M10) ER tablet 40 mEq (COMPLETED) 40 mEq, Oral, Once, On 05/27/24 at 1030, For 1 dose, Best given with food and plenty of water to minimize gastric irritation. Do not crush or chew. 1111 (Given - Provider: Michelle Chan RN) potassium chloride IVPB 10 mEq (COMPLETED) 10 mEq, IntraVENous, at 100 mL/hr, Administer over 1 Hours, Once, On 05/27/24 at 1030, For 1 dose 1109 (New Bag - Provider: Michelle Chan RN)1209 (Stopped - Provider: Michelle Chan RN) prazosin (Minipress) capsule 10 mg 10 mg, Oral, Nightly, First dose on 05/27/24 at 2100, Ok with seroquel and melatonin. 2148 (Given - Provider: Patt Snowden RN) QUEtiapine (SEROquel) tablet 100 mg 100 mg, Oral, Nightly, First dose on 05/27/24 at 2100, HOLD if sleeping or sedated. OK with melatonin. 2147 (Given - Provider: Patt Snowden RN) sertraline (Zoloft) tablet 150 mg 150 mg, Oral, Daily, First dose on Tue05/28/24 at 0900 0922 (Given - Provid er: Lalito Sarabia RN) sodium chloride 0.9 % 1,000 mL with multiple vitamin 10 mL, thiamine 100 mg, folic acid 1 mg infusion (COMPLETED) 150 mL/hr, IntraVENous, Once, On 05/27/24 at 1000, For 1 dose 1408 (New Bag - Provider: Michelle Chan RN)1932 (Rate/Dose Verify - Provider: Patt Snowden RN)2311 (Stopped - Provider: Patt Snowden RN) sodium chloride 0.9 % bolus 1,000 mL (COMPLETED) 1,000 mL, IntraVENous, at 1,000 mL/hr, Administer over 1 Hours, Once, On 05/27/24 at 0925, For 1 dose 0940 (New Bag - Provider: Michelle Chan RN)1040 (Stopped - Provider: Michelle Chan RN) thiamine (Vitamin B1) tablet 100 mg (CANCELED) 100 mg, Oral, Daily, First dose on 05/27/24 at 0925 0946 (Given - Provider: Michelle Chan RN) thiamine (Vitamin B1) tablet 100 mg 100 mg, Oral, Daily, First dose (after last modification) on 05/28/24 at 0900 0922 (Given - Provid er: Lalito Sarabia RN) PRN Medication Order 05/26/2024 05/27/2024 05/28/2024 ketorolac (Toradol) injection 15 mg 15 mg, IntraVENous, Every 8 hours PRN, severe pain (7-10), Starting on 05/27/24 at 1637, For 3 doses 194 (Given - Provider: Patt Snowden RN) LORazepam (Ativan) injection 1 mg(Linked Group 1) 1 mg, IntraVENous, Every 1 hour PRN, withdrawal, For alcohol withdrawal, Starting on 05/27/24 at 1458, For CIWA score 8 to 10. If both oral and intravenous CIWA medications ordered, use intravenous if unable to tolerate oral equivalent. Reassess CIWA one hour after each dose of medication and as needed. For IV doses dilute dose with 1ml NS. 1641 (See Alternative - Provider: Michelle Chan RN)1942 (See Alternative - Provider: Patt Snowden RN)2157 (See Alternative - Provider: Patt Snowden RN) 0134 (See Alternative - Provider: Phillip Wells RN)0251 (See Alternative - Provider: Patt Snowden RN) LORazepam (Ativan) injection 2 mg(Linked Group 1) 2 mg, IntraVENous, Every 1 hour PRN, withdrawal, For alcohol withdrawal., Starting on 05/27/24 at 1458, For CIWA score 11 to 15. If both oral and intravenous CIWA medications ordered, use intravenous if unable to tolerate oral equivalent. Reassess CIWA one hour after each dose of medication and as needed. For IV doses dilute dose with 1ml NS. 1641 (Given - Provider: Michelle Chan RN)1941 (See Alternative - Provider: Patt Snowden RN)2156 (See Alternative - Provider: Patt Snowden RN) 133 (See Alternative - Provider: Phillip Wells RN)025 (See Alternative - Provider: Patt Snowden RN) LORazepam (Ativan) injection 3 mg(Linked Group 1) 3 mg, IntraVENous, Every 1 hour PRN, withdrawal, For alcohol withdrawal, Starting on 05/27/24 at 1458, For CIWA score 16 to 20. If both oral and intravenous CIWA medications ordered, use intravenous if unable to tolerate oral equivalent. Reassess CIWA one hour after each dose of medication and as needed. For IV doses dilute dose with 1ml NS. 1640 (See Alternative - Provider: Michelle Chan RN)1941 (See Alternative - Provider: Patt Snowden RN)2156 (See Alternative - Provider: Patt Snowden RN) 133 (See Alternative - Provider: Phillip Wells RN)025 (Given - Provider: Patt Snowden RN) LORazepam (Ativan) injection 4 mg(Linked Group 1) 4 mg, IntraVENous, Every 1 hour PRN, withdrawal, For alcohol withdrawal, Starting on 05/27/24 at 1458, For CIWA score greater than 20. If both oral and intravenous CIWA medications ordered, use intravenous if unable to tolerate oral equivalent. Reassess CIWA one hour after each dose of medication and as needed. For IV doses dilute dose with 1ml NS. 1640 (See Alternative - Provider: Michelle Chan RN)1941 (See Alternative - Provider: Patt Snowden RN)2156 (See Alternative - Provider: Patt Snowden RN) 133 (See Alternative - Provider: Phillip Wells RN)025 (See Alternative - Provider: Patt Snowden RN) LORazepam (Ativan) tablet 1 mg(Linked Group 1) 1 mg, Oral, Every 1 hour PRN, other, For alcohol withdrawal, Starting on 05/27/24 at 1458, For CIWA score 8 to 10. Reassess CIWA one hour after each dose of medication and as needed. 1640 (See Alternative - Provider: Michelle Chan RN)1941 (Given - Provider: Patt Snowden RN)2156 (Given - Provider: Patt Snowden RN) 133 (Given - Provider: Phillip Wells RN)025 (See Alternative - Provider: Patt Snowden RN) LORazepam (Ativan) tablet 2 mg(Linked Group 1) 2 mg, Oral, Every 1 hour PRN, other, For alcohol withdrawal, Starting on 05/27/24 at 1458, For CIWA score 11 to 15. Reassess CIWA one hour after each dose of medication and as needed. 1640 (See Alternative - Provider: Michelle Chan RN)1941 (See Alternative - Provider: Patt Snowden RN)2156 (See Alternative - Provider: Patt Snowden RN) 133 (See Alternative - Provider: Phillip Wells RN)025 (See Alternative - Provider: Patt Snowden RN) LORazepam (Ativan) tablet 3 mg(Linked Group 1) 3 mg, Oral, Every 1 hour PRN, other, For alcohol withdrawal, Starting on 05/27/24 at 1458, For CIWA score 16 to 20. Reassess CIWA one hour after each dose of medication and as needed. 1640 (See Alternative - Provider: Michelle Chan RN)1941 (See Alternative - Provider: Patt Snowden RN)2156 (See Alternative - Provider: Patt Snowden RN) 133 (See Alternative - Provider: Phillip Wells RN)0251 (See Alternative - Provider: Patt Snowden RN) LORazepam (Ativan) tablet 4 mg(Linked Group 1) 4 mg, Oral, Every 1 hour PRN, other, For alcohol withdrawal, Starting on 05/27/24 at 1458, For CIWA score greater than 20. Reassess CIWA one hour after each dose of medication and as needed. 1640 (See Alternative - Provider: Michelle Chan RN)1941 (See Alternative - Provider: Patt Snowden RN)2156 (See Alternative - Provider: Patt Snowden RN) 133 (See Alternative - Provider: Phillip Wells RN)0251 (See Alternative - Provider: Patt Snowden RN) naloxone (Narcan) injection 0.4 mg 0.4 mg, IntraVENous, Every 5 min PRN, opioid reversal, respiratory depression, Starting on 05/28/24 at 1326, +++ For RR <10, pinpoint pupils, over sedation for opioid reversal - MUST notify cotton program technician provider immediately after first dose, may give IM or SQ if no IV access +++ ondansetron (Zofran) injection 4 mg(Linked Group 2) 4 mg, IntraVENous, Every 6 hours PRN, nausea, vomiting, Starting on 05/27/24 at 1325, 1st Line. Give IV if patient is unable to take orally. If inadequate response within 60 minutes, proceed to next-line agent or contact provider if no further options ordered. ondansetron ODT (Zofran-ODT) disintegrating tablet 4 mg(Linked Group 2) 4 mg, Oral, Every 8 hours PRN, nausea, vomiting, Starting on 05/27/24 at 1325, 1st Line. If inadequate response within 60 minutes, proceed to next-line agent or contact provider if no further options ordered. Patient should allow tablet to dissolve on tongue. Do not remove from blister pack until just before administering. polyethylene glycol (PEG) 3350 (Miralax) packet 17 g 17 g, Oral, Daily PRN, constipation, Starting on 05/27/24 at 1325, 1st line for treatment of constipation - give scheduled if no bowel movement in past 24 hours. senna-docusate sodium (Senokot-S) 8.6-50 MG tablet 2 tablet 2 tablet, Oral, 2 times daily PRN, constipation, Starting on 05/27/24 at 1634, If using BID for more than 1 day please let this provider know. He has a history of opioid induced constipation. Linked Groups Order Group 1: LORazepam (Ativan) tablet 1 mgJump to med 1 mg, Oral, Every 1 hour PRN, other, For alcohol withdrawal, Starting on 05/27/24 at 1458, For CIWA score 8 to 10. Reassess CIWA one hour after each dose of medication and as needed. Or LORazepam (Ativan) injection 1 mgJump to med 1 mg, IntraVENous, Every 1 hour PRN, withdrawal, For alcohol withdrawal, Starting on 05/27/24 at 1458, For CIWA score 8 to 10. If both oral and intravenous CIWA medications ordered, use intravenous if unable to tolerate oral equivalent. Reassess CIWA one hour after each dose of medication and as needed. For IV doses dilute dose with 1ml NS. Or LORazepam (Ativan) tablet 2 mgJump to med 2 mg, Oral, Every 1 hour PRN, other, For alcohol withdrawal, Starting on 05/27/24 at 1458, For CIWA score 11 to 15. Reassess CIWA one hour after each dose of medication and as needed. Or LORazepam (Ativan) injection 2 mgJump to med 2 mg, IntraVENous, Every 1 hour PRN, withdrawal, For alcohol withdrawal., Starting on 05/27/24 at 1458, For CIWA score 11 to 15. If both oral and intravenous CIWA medications ordered, use intravenous if unable to tolerate oral equivalent. Reassess CIWA one hour after each dose of medication and as needed. For IV doses dilute dose with 1ml NS. Or LORazepam (Ativan) tablet 3 mgJump to med 3 mg, Oral, Every 1 hour PRN, other, For alcohol withdrawal, Starting on 05/27/24 at 1458, For CIWA score 16 to 20. Reassess CIWA one hour after each dose of medication and as needed. Or LORazepam (Ativan) injection 3 mgJump to med 3 mg, IntraVENous, Every 1 hour PRN, withdrawal, For alcohol withdrawal, Starting on 05/27/24 at 1458, For CIWA score 16 to 20. If both oral and intravenous CIWA medications ordered, use intravenous if unable to tolerate oral equivalent. Reassess CIWA one hour after each dose of medication and as needed. For IV doses dilute dose with 1ml NS. Or LORazepam (Ativan) tablet 4 mgJump to med 4 mg, Oral, Every 1 hour PRN, other, For alcohol withdrawal, Starting on 05/27/24 at 1458, For CIWA score greater than 20. Reassess CIWA one hour after each dose of medication and as needed. Or LORazepam (Ativan) injection 4 mgJump to med 4 mg, IntraVENous, Every 1 hour PRN, withdrawal, For alcohol withdrawal, Starting on 05/27/24 at 1458, For CIWA score greater than 20. If both oral and intravenous CIWA medications ordered, use intravenous if unable to tolerate oral equivalent. Reassess CIWA one hour after each dose of medication and as needed. For IV doses dilute dose with 1ml NS. Group 2: ondansetron ODT (Zofran-ODT) disintegrating tablet 4 mgJump to med 4 mg, Oral, Every 8 hours PRN, nausea, vomiting, Starting on 05/27/24 at 1325, 1st Line. If inadequate response within 60 minutes, proceed to next-line agent or contact provider if no further options ordered. Patient should allow tablet to dissolve on tongue. Do not remove from blister pack until just before administering. Or ondansetron (Zofran) injection 4 mgJump to med 4 mg, IntraVENous, Every 6 hours PRN, nausea, vomiting, Starting on 05/27/24 at 1325, 1st Line. Give IV if patient is unable to take orally. If inadequate response within 60 minutes, proceed to next-line agent or contact provider if no further options ordered. Scheduled Medication Order 08/08/2024 08/09/2024 08/10/2024 dexAMETHasone (Decadron) injection 4 mg (COMPLETED) 4 mg, IntraMUSCular, Once, On 08/10/24 at 1015, For 1 dose 1029 (Given - Provid er: Melani Fraire RN) diphenhydrAMINE (BENADryl) tablet/capsule 25 mg (COMPLETED) 25 mg, Oral, Once, On 08/10/24 at 1015, For 1 dose 1029 (Given - Provid er: Melani Fraire RN) Scheduled Medication Order 12/02/2024 12/03/2024 12/04/2024 buprenorphine-naloxone (Suboxone) 8-2 MG per sublingual film 1 Film 1 Film, SubLINGual, 2 times daily, First dose on 12/01/24 at 1430 0043 (Given - Provider: Burke Henriquez RN - Comment: Too close to previous administration: 1600.)0803 (Given - Provider: Miguelito Sanchez RN)2010 (Given - Provider: Burke Henriquez RN) 0842 (Given - Provider: Jamison Gonzalez RN)1021 (MAR Hold - Provider: Automatic Transfer Provider - Reason: Patient not available)1214 (MAR Unhold - Provider: Automatic Transfer Provider)2108 (Given - Provider: Burke Henriquez, DESIREE) 0848 (Given - Provider: Jaleesa Snowden, RN) busPIRone (Buspar) tablet 15 mg 15 mg, Oral, Every 8 hours, First dose on 12/01/24 at 1300 0407 (Given - Provider: Burke Henriquez, RN)1201 (Given - Provider: Miguelito Sanchez, DESIREE)2009 (Given - Provider: Burke Henriquez RN) 0404 (Given - Provider: Burke Henriquez RN)1021 (JUN Hold - Provider: Automatic Transfer Provider - Reason: Patient not available)1214 (JUN Unhold - Provider: Automatic Transfer Provider)1304 (Given - Provider: Jamison Gonzalez, DESIREE)2107 (Given - Provider: Burke Henriquez, DESIREE) 0627 (Given - Provider: Junior Sosa RN)1222 (Given - Provider: Beni Roger, DESIREE) FLUoxetine (PROzac) capsule 20 mg 20 mg, Oral, Daily, First dose on 12/02/24 at 1100 1136 (Given - Provider: Miguelito Sanchez, DESIREE) 0843 (Given - Provider: Jamison Gonzalez, DESIREE)1021 (BANNER Hold - Provider: Automatic Transfer Provider - Reason: Patient not available)1214 (BANNER Unhold - Provider: Automatic Transfer Provider) 0853 (Given - Provider: Jaleesa Snowden, DESIREE) folic acid 1 mg in dextrose 5 % 50 mL IVPB 1 mg, IntraVENous, at 100 mL/hr, Administer over 30 Minutes, Daily, First dose on 12/01/24 at 0900 0803 (New Bag - Provider: Miguelito Sanchez, DESIREE)0833 (Stopped - Provider: Miguelito Sanchez, DESIREE) 0842 (New Bag - Provider: Jamison Gonzalez, DESIREE)0949 (Stopped - Provider: Jamison Gonzalez, DESIREE)1021 (BANNER Hold - Provider: Automatic Transfer Provider - Reason: Patient not available)1214 (BANNER Unhold - Provider: Automatic Transfer Provider) 1222 (New Bag - Provider: Beni Roger, RN)1300 (Stopped - Provider: Beni Roger, RN) magnesium sulfate IVPB premix 2,000 mg (COMPLETED) 2,000 mg, IntraVENous, at 25 mL/hr, Administer over 2 Hours, Once, On Tue12/02/24 at 0400, For 1 dose, Recommended infusion rate not to exceed 1,000 mg (milligrams) per hour. 0404 (New Bag - Provider: Burke Henriquez RN)0604 (Stopped - Provider: Burke Henriquez RN) magnesium sulfate IVPB premix 2,000 mg (COMPLETED) 2,000 mg, IntraVENous, at 25 mL/hr, Administer over 2 Hours, Once, On 12/03/24 at 0800, For 1 dose, Recommended infusion rate not to exceed 1,000 mg (milligrams) per hour. 0842 (New Bag - Provider: Jamison Gonzalez RN)1010 (Stopped - Provider: Jamison Gonzalez RN) mupirocin (Bactroban) 2 % ointment Nasal, 2 times daily, First dose on Tue12/01/24 at 0900, For 5 days, MRSA decolonization 0804 (Given - Provider: Miguelito Sanchez RN)2017 (Given - Provider: Burke Henriquez RN) 0907 (Not Given - Provider: Jamison Gonzalez RN - Reason: Patient/family refused)1021 (JUN Hold - Provider: Automatic Transfer Provider - Reason: Patient not available)1214 (JUN Unhold - Provider: Automatic Transfer Provider)2113 (Given - Provider: Burke Henriquez RN) 0906 (Not Given - Provider: Jaleesa Snowden RN - Reason: Patient/family refused) pantoprazole (ProtoNix) 40 mg in sodium chloride (PF) 0.9 % 10 mL injection 40 mg, IntraVENous, Administer over 2 Minutes, 2 times daily before meals, First dose on Tue11/30/24 at 1600, Reconstitute with 10 ml NS. Vial expires 2 hrs after reconstitution. 0614 (Given - Provider: Burke Henriquez RN)1617 (Given - Provider: Miguelito Sanchez RN) 0624 (Given - Provider: Burke Henriquez RN)1021 (JUN Hold - Provider: Automatic Transfer Provider - Reason: Patient not available)1214 (JUN Unhold - Provider: Automatic Transfer Provider)1741 (Given - Provider: Jamison Gonzalez RN) 0627 (Given - Provider: Junior Sosa RN)1600 (Canceled Entry - Provider: Automatic Discharge Provider - Comment: Automatically canceled at discontinue of medication order) PHENobarbital (Luminal) injection 65 mg (CANCELED) 65 mg, IntraVENous, Every 4 hours, First dose (after last modification) on Tue12/02/24 at 1200, Administer no faster than 1 mg/kg/minute, to a max of 60 mg/min in adults. HOLD for RASS < -1. 1136 (Not Given - Provider: Miguelito Sanchez RN - Reason: Order parameters not met)1606 (Not Given - Provider: Miguelito Sanchez RN - Reason: Order parameters not met)2010 (Given - Provider: Burke Henriquez RN) 0013 (Given - Provider: Burke Henriquez RN)0404 (Given - Provider: Burke Henriquez RN)0843 (Given - Provider: Jamison Gonzalez RN)1021 (MAR Hold - Provider: Automatic Transfer Provider - Reason: Patient not available)1200 (Not Given - Provider: Jamison Gonzalez RN - Reason: See Provider Order)1214 (MAR Unhold - Provider: Automatic Transfer Provider) PHENobarbital (Luminal) injection 65 mg (CANCELED) 65 mg, IntraVENous, Every 6 hours, First dose (after last modification) on Tue12/03/24 at 1800, Administer no faster than 1 mg/kg/minute, to a max of 60 mg/min in adults. HOLD for RASS < -1. 1741 (Given - Provider: Jamison Gonzalez RN) 0229 (Not Given - Provider: Junior Sosa RN - Reason: See Provider Order) PHENobarbital (Luminal) injection 65 mg (CANCELED) 65 mg, IntraVENous, Every 6 hours, First dose (after last reorder) on Tue12/04/24 at 0100, Administer no faster than 1 mg/kg/minute, to a max of 60 mg/min in adults. HOLD for RASS < -1. 0142 (Given - Provider: Junior Sosa RN)0846 (Given - Provider: Jaleesa Snowden RN) PHENobarbital (Luminal) injection 97.5 mg (CANCELED) 97.5 mg, IntraVENous, Every 4 hours, First dose (after last modification) on Tue12/01/24 at 1600, Administer no faster than 1 mg/kg/minute, to a max of 60 mg/min in adults. HOLD for RASS < -1. 0043 (Given - Provider: Burke Henriquez RN)0403 (Given - Provider: Burke Henriquez RN)0801 (Not Given - Provider: Miguelito Sanchez, RN - Reason: Order parameters not met) PHENobarbital tablet 64.8 mg 64.8 mg, Oral, Every 6 hours, First dose on Tue12/04/24 at 1200 1223 (Given - Provider: Beni Roger RN) potassium chloride (Klor-Con) packet 40 mEq (COMPLETED) 40 mEq, Oral, 2 times daily, First dose on Tue12/02/24 at 0400, For 2 doses, Dissolve each packet in 4 ounces of water = 5 mEq per 1 oz fluid., Indications: Hypokalemia 0405 (Given - Provider: Burke Henriquez RN)2009 (Given - Provider: Burke Henriquez RN) sodium chloride 0.9% (NS) flush 10 mL 10 mL, IntraVENous, Every 12 hours scheduled (2 times per day), First dose on Tue12/02/24 at 2100 2017 (Given - Provider: Burke Henriquez RN) 0907 (Not Given - Provider: Jamison Gonzalez RN - Reason: Patient/family refused)1021 (MAR Hold - Provider: Automatic Transfer Provider - Reason: Patient not available)1214 (MAR Unhold - Provider: Automatic Transfer Provider)2100 (Given - Provider: Burke Henriquez RN) 0846 (Given - Provider: Jaleesa Snowden RN) sodium chloride 0.9% (NS) flush 10 mL (CANCELED) 10 mL, IntraVENous, Every 12 hours scheduled (2 times per day), First dose on Tue12/02/24 at 2100, Preprocedure 2016 (Given - Provider: Burke Henriquez, DESIREE) thiamine (Vitamin B1) injection 100 mg 100 mg, IntraVENous, 3 times daily, First dose (after last modification) on 12/01/24 at 1430 0803 (Given - Provider: Miguelito Sanchez, RN)1618 (Given - Provider: Miguelito Sanchez, RN)2010 (Given - Provider: Burke Henriquez RN) 0843 (Given - Provider: Jamison Gonzalez, RN)1021 (BANNER Hold - Provider: Automatic Transfer Provider - Reason: Patient not available)1214 (BANNER Unhold - Provider: Automatic Transfer Provider)1304 (Given - Provider: Jamison Gonzalez, DESIREE)2107 (Given - Provider: Burke Henriquez, DESIREE) 0847 (Given - Provider: Jaleesa Snowden, RN)1300 (Given - Provider: Beni Roger, DESIREE) PRN Medication Order 12/02/2024 12/03/2024 12/04/2024 Acetaminophen (Tylenol) 650 MG/20.3ML solution 650 mg(Linked Group 1) 650 mg, Oral, Every 6 hours PRN, mild pain (1-3), fever, headaches, Starting on 12/01/24 at 1051, Give oral liquid if patient prefers or per feeding tube if present. If inadequate response within 60 minutes, proceed to next-line agent for same PRN reason or contact provider if no further options ordered. 1021 (BANNER Hold - Provider: Automatic Transfer Provider - Reason: Patient not available)1214 (BANNER Unhold - Provider: Automatic Transfer Provider) acetaminophen (Tylenol) suppository 650 mg(Linked Group 1) 650 mg, Rectal, Every 6 hours PRN, mild pain (1-3), fever, Starting on 12/01/24 at 1051, Give MI if unable to administer by mouth or feeding tube. If inadequate response within 60 minutes, proceed to next-line agent for same PRN reason or contact provider if no further options ordered. 1021 (BANNER Hold - Provider: Automatic Transfer Provider - Reason: Patient not available)1214 (BANNER Unhold - Provider: Automatic Transfer Provider) acetaminophen (Tylenol) tablet 650 mg(Linked Group 1) 650 mg, Oral, Every 6 hours PRN, mild pain (1-3), fever, headaches, Starting on 12/01/24 at 1051, If inadequate response within 60 minutes, proceed to next-line agent for same PRN reason or contact provider if no further options ordered. 1021 (BANNER Hold - Provider: Automatic Transfer Provider - Reason: Patient not available)1214 (BANNER Unhold - Provider: Automatic Transfer Provider) LORazepam (Ativan) injection 1 mg (CANCELED)(Linked Group 2) 1 mg, IntraVENous, Every 1 hour PRN, withdrawal, For alcohol withdrawal, Starting on 12/01/24 at 0649, For CIWA score 8 to 10. If both oral and intravenous CIWA medications ordered, use intravenous if unable to tolerate oral equivalent. Reassess CIWA one hour after each dose of medication and as needed. For IV doses dilute dose with 1ml NS. 1801 (See Alternative - Provider: Miguelito Sanchez RN)2010 (See Alternative - Provider: Burke Henriquez RN)2302 (See Alternative - Provider: Burke Henriquez RN) 06 (Given - Provider: Burke Henriquez RN)0843 (Given - Provider: Jamison Gonzalez, DESIREE)1021 (MAR Hold - Provider: Automatic Transfer Provider - Reason: Patient not available)1214 (BANNER Unhold - Provider: Automatic Transfer Provider) LORazepam (Ativan) injection 1 mg(Linked Group 3) 1 mg, IntraMUSCular, Every 6 hours PRN, withdrawal, alcohol withdrawal for CIWA >10, Starting on Tue12/04/24 at 1154, Please notify cotton program technician attending if this has to be utilized for a seizure. For IV doses dilute dose with 1ml NS. 1400 (See Alternativ e - Provider: Jaleesa Snowden RN) LORazepam (Ativan) tablet 1 mg (CANCELED)(Linked Group 2) 1 mg, Oral, Every 1 hour PRN, other, For alcohol withdrawal, Starting on 12/01/24 at 0649, For CIWA score 8 to 10. Reassess CIWA one hour after each dose of medication and as needed. 1801 (Given - Provider: Miguelito Sanchez RN)2010 (Given - Provider: Burke Henriquez RN - Comment: 10)2302 (See Alternative - Provider: Burke Henriquez RN) 06 (See Alternative - Provider: Burke Henriquez RN)0843 (See Alternative - Provider: Jamison Gonzalez, DESIREE)1021 (MAR Hold - Provider: Automatic Transfer Provider - Reason: Patient not available)1214 (MAR Unhold - Provider: Automatic Transfer Provider) LORazepam (Ativan) tablet 1 mg (CANCELED) 1 mg, Oral, Every 4 hours PRN, other, For alcohol withdrawal, Starting on Tue12/03/24 at 1221, For CIWA score 8 or greater Reassess CIWA one hour after each dose of medication and as needed. 2107 (Given - Provider: Burke Henriquez, DESIREE) 0433 (Given - Provider: Junior Sosa, DESIREE) LORazepam (Ativan) tablet 1 mg(Linked Group 3) 1 mg, Oral, Every 6 hours PRN, alcohol withdrawal for CIWA >10, Starting on 12/04/24 at 1154 1400 (Given - Provider: Jaleesa Snowden, DESIREE) LORazepam (Ativan) tablet 2 mg (CANCELED)(Linked Group 2) 2 mg, Oral, Every 1 hour PRN, other, For alcohol withdrawal, Starting on 12/01/24 at 0649, For CIWA score 11 to 15. Reassess CIWA one hour after each dose of medication and as needed. 1801 (See Alternative - Provider: Miguelito Sanchez RN)2010 (See Alternative - Provider: Burke Henriquez, DESIREE)2303 (Given - Provider: Burke Henriquez, DESIREE) 0624 (See Alternative - Provider: Burke Henriquez, DESIREE)0843 (See Alternative - Provider: Jamison Gonzalez RN)1021 (BANNER Hold - Provider: Automatic Transfer Provider - Reason: Patient not available)1214 (BANNER Unhold - Provider: Automatic Transfer Provider) naloxone (Narcan) injection 0.4 mg 0.4 mg, IntraVENous, Every 5 min PRN, opioid reversal, respiratory depression, Starting on 12/01/24 at 1339, +++ For RR <10, pinpoint pupils, over sedation for opioid reversal - MUST notify cotton program technician provider immediately after first dose, may give IM or SQ if no IV access +++ 1021 (BANNER Hold - Provider: Automatic Transfer Provider - Reason: Patient not available)1214 (BANNER Unhold - Provider: Automatic Transfer Provider) sodium chloride 0.9 % infusion 5-250 mL/hr, IntraVENous, PRN, if patient receiving piggyback infusions and maintenance fluids are not ordered OR KVO fluids to protect IV site / prevent frequent line interruptions/ long duration, Starting on 12/02/24 at 1327, For piggyback infusion, administer at same rate as piggyback for a total of 25 mL. Enter 25 mL into dose field and piggyback rate into rate field of order. If piggyback is infusing at a rate less than 100 mL/hr, enter 25 mL into dose field and 100 mL/hr into rate field of order. For KVO fluids, enter rate of 20 mL/hr or less into rate field of order. 1021 (JUN Hold - Provider: Automatic Transfer Provider - Reason: Patient not available)1214 (BANNER Unhold - Provider: Automatic Transfer Provider) sodium chloride 0.9% (NS) flush 10 mL 10 mL, IntraVENous, PRN, line care, Starting on 12/02/24 at 1327, After every IV line use 1021 (JUN Hold - Provider: Automatic Transfer Provider - Reason: Patient not available)1214 (BANNER Unhold - Provider: Automatic Transfer Provider) Linked Groups Order Group 1: acetaminophen (Tylenol) tablet 650 mgJump to med 650 mg, Oral, Every 6 hours PRN, mild pain (1-3), fever, headaches, Starting on 12/01/24 at 1051, If inadequate response within 60 minutes, proceed to next-line agent for same PRN reason or contact provider if no further options ordered. Or Acetaminophen (Tylenol) 650 MG/20.3ML solution 650 mgJump to med 650 mg, Oral, Every 6 hours PRN, mild pain (1-3), fever, headaches, Starting on 12/01/24 at 1051, Give oral liquid if patient prefers or per feeding tube if present. If inadequate response within 60 minutes, proceed to next-line agent for same PRN reason or contact provider if no further options ordered. Or acetaminophen (Tylenol) suppository 650 mgJump to med 650 mg, Rectal, Every 6 hours PRN, mild pain (1-3), fever, Starting on 12/01/24 at 1051, Give MI if unable to administer by mouth or feeding tube. If inadequate response within 60 minutes, proceed to next-line agent for same PRN reason or contact provider if no further options ordered. Group 2: LORazepam (Ativan) tablet 1 mg (CANCELED)Jump to med 1 mg, Oral, Every 1 hour PRN, other, For alcohol withdrawal, Starting on 12/01/24 at 0649, For CIWA score 8 to 10. Reassess CIWA one hour after each dose of medication and as needed. Or LORazepam (Ativan) injection 1 mg (CANCELED)Jump to med 1 mg, IntraVENous, Every 1 hour PRN, withdrawal, For alcohol withdrawal, Starting on 12/01/24 at 0649, For CIWA score 8 to 10. If both oral and intravenous CIWA medications ordered, use intravenous if unable to tolerate oral equivalent. Reassess CIWA one hour after each dose of medication and as needed. For IV doses dilute dose with 1ml NS. Or LORazepam (Ativan) tablet 2 mg (CANCELED)Jump to med 2 mg, Oral, Every 1 hour PRN, other, For alcohol withdrawal, Starting on 12/01/24 at 0649, For CIWA score 11 to 15. Reassess CIWA one hour after each dose of medication and as needed. Or LORazepam (Ativan) injection 2 mg (CANCELED) 2 mg, IntraVENous, Every 1 hour PRN, withdrawal, For alcohol withdrawal., Starting on 12/01/24 at 0649, For CIWA score 11 to 15. If both oral and intravenous CIWA medications ordered, use intravenous if unable to tolerate oral equivalent. Reassess CIWA one hour after each dose of medication and as needed. For IV doses dilute dose with 1ml NS. Or LORazepam (Ativan) tablet 3 mg (CANCELED) 3 mg, Oral, Every 1 hour PRN, other, For alcohol withdrawal, Starting on 12/01/24 at 0649, For CIWA score 16 to 20. Reassess CIWA one hour after each dose of medication and as needed. Or LORazepam (Ativan) injection 3 mg (CANCELED) 3 mg, IntraVENous, Every 1 hour PRN, withdrawal, For alcohol withdrawal, Starting on 12/01/24 at 0649, For CIWA score 16 to 20. If both oral and intravenous CIWA medications ordered, use intravenous if unable to tolerate oral equivalent. Reassess CIWA one hour after each dose of medication and as needed. For IV doses dilute dose with 1ml NS. Or LORazepam (Ativan) tablet 4 mg (CANCELED) 4 mg, Oral, Every 1 hour PRN, other, For alcohol withdrawal, Starting on 12/01/24 at 0649, For CIWA score greater than 20. Reassess CIWA one hour after each dose of medication and as needed. Or LORazepam (Ativan) injection 4 mg (CANCELED) 4 mg, IntraVENous, Every 1 hour PRN, withdrawal, For alcohol withdrawal, Starting on Tue12/01/24 at 0649, For CIWA score greater than 20. If both oral and intravenous CIWA medications ordered, use intravenous if unable to tolerate oral equivalent. Reassess CIWA one hour after each dose of medication and as needed. For IV doses dilute dose with 1ml NS. Group 3: LORazepam (Ativan) tablet 1 mgJump to med 1 mg, Oral, Every 6 hours PRN, alcohol withdrawal for CIWA >10, Starting on Tue12/04/24 at 1154 Or LORazepam (Ativan) injection 1 mgJump to med 1 mg, IntraMUSCular, Every 6 hours PRN, withdrawal, alcohol withdrawal for CIWA >10, Starting on Tue12/04/24 at 1154, Please notify cotton program technician attending if this has to be utilized for a seizure. For IV doses dilute dose with 1ml NS. Care Teams (unrecognized sec tion and content) Sewing Machine Operator Semiautomatic Relationship Specialty Start Date End Date Teddy Sanford MD [address] [place] [id number] PCP - General Family Medicine 11/27/18 Sewing Machine Operator Semiautomatic Relationship Specialty Start Date End Date Teddy Sanford MD [address] [place] [id number] PCP - General Family Medicine 11/27/18 Sewing Machine Operator Semiautomatic Relationship Specialty Start Date End Date Teddy Sanford MD [address] [place] [id number] PCP - General Family Medicine 11/27/18 Sewing Machine Operator Semiautomatic Relationship Specialty [place] [address] PCP - General 10/02/21 Sewing Machine Operator Semiautomatic Relationship Specialty Start Date End Date Kay Kerr [address] [place] [address] PCP - General 10/02/21 Sewing Machine Operator Semiautomatic Relationship Specialty Start Date End Date Wear, [place] [address] PCP - General 10/02/21 Sewing Machine Operator Semiautomatic Relationship Specialty Start Date End Date Wear, [place] [address] PCP - General 10/02/21 Sewing Machine Operator Semiautomatic Relationship Specialty Start Date End Date Wear, [place] [address] PCP - General 10/02/21 Sewing Machine Operator Semiautomatic Relationship Specialty Start Date End Date Wear, [place] [address] PCP - General 10/02/21 Sewing Machine Operator Semiautomatic Relationship Specialty Start Date End Date Wear, [place] [address] PCP - General 10/02/21 Sewing Machine Operator Semiautomatic Relationship Specialty Start Date End Date Wear, [place] [address] PCP - General 10/02/21 Sewing Machine Operator Semiautomatic Relationship Specialty Start Date End Date Wear, Kay [address] [place] [address] PCP - General 10/02/21 Sewing Machine Operator Semiautomatic Relationship Specialty Start Date End Date Wear, Kay [address] [place] [address]999 PCP - General 10/02/21 Sewing Machine Operator Semiautomatic Relationship Specialty Start Date End Date Wear, Kay [address] [place] [id number] PCP - General 10/02/21 Sewing Machine Operator Semiautomatic Relationship Specialty Start Date End Date Wear, Kay [address] [place], [place] 840739 PCP - General 10/02/21 Sewing Machine Operator Semiautomatic Relationship Specialty Start Date End Date Wear, Kay [address] [place], [place] [id number] PCP - General 10/02/21 Sewing Machine Operator Semiautomatic Relationship Specialty Start Date End Date Wear, Kay [address] [place], [place] [id number] PCP - General 10/02/21 Sewing Machine Operator Semiautomatic Relationship Specialty Start Date End Date Wear, Kay [address] [place], [place] 824349 PCP - General 10/02/21 Sewing Machine Operator Semiautomatic Relationship Specialty Start Date End Date Wear, Kay [address] [place], [place] 949279 PCP - General 10/02/21 Sewing Machine Operator Semiautomatic Relationship Specialty Start Date End Date Wear, Kay [address] [place], [place] [id number] PCP - General 10/02/21 Sewing Machine Operator Semiautomatic Relationship Specialty Start Date End Date Wear, Kay [address] [place], [place] [id number] PCP - General 10/02/21 Sewing Machine Operator Semiautomatic Relationship Specialty Start Date End Date Wear, Kay [address] [place], [place] 383259 PCP - General 10/02/21 Sewing Machine Operator Semiautomatic Relationship Specialty Start Date End Date Wear, Kay [address] [place] [address] PCP - General 10/02/21 Sewing Machine Operator Semiautomatic Relationship Specialty Start Date End Date Wear, Kay [address] [place] [address] PCP - General 10/02/21 Sewing Machine Operator Semiautomatic Relationship Specialty Start Date End Date Wear, Kay [address] [place] [address] PCP - General 10/02/21 Sewing Machine Operator Semiautomatic Relationship Specialty Start Date End Date Wear, Kay [address] [place] [address] PCP - General 10/02/21 Sewing Machine Operator Semiautomatic Relationship Specialty Start Date End Date Wear, Kay [address] [place] [address] PCP - General 10/02/21 Sewing Machine Operator Semiautomatic Relationship Specialty Start Date End Date Wear, Kay [address] [place] [address] PCP - General 10/02/21 Sewing Machine Operator Semiautomatic Relationship Specialty Start Date End Date Wear, Kay [address] [place] [address] PCP - General 10/02/21 Sewing Machine Operator Semiautomatic Relationship Specialty Start Date End Date Wear, Kay [address] [place] [address] PCP - General 10/02/21 Sewing Machine Operator Semiautomatic Relationship Specialty Start Date End Date Wear, Kay [address] [place], [place] [id number] PCP - General 10/02/21 Sewing Machine Operator Semiautomatic Relationship Specialty Start Date End Date Wear, Kay [address] [place] [id number] PCP - General 10/02/21 Sewing Machine Operator Semiautomatic Relationship Specialty Start Date End Date Wear, Kay [address] [place] [address]1969 PCP - General 10/02/21 Sewing Machine Operator Semiautomatic Relationship Specialty Start Date End Date Wear, Kay [address] [place] [address]0029 PCP - General 10/02/21 Sewing Machine Operator Semiautomatic Relationship Specialty Start Date End Date Wear, Kay [address] [place] [address] PCP - General 10/02/21 Sewing Machine Operator Semiautomatic Relationship Specialty Start Date End Date Wear, Kay [address] [place] 860819 PCP - General 10/02/21 Sewing Machine Operator Semiautomatic Relationship Specialty Start Date End Date Wear, Kay [address] [place] [address] PCP - General 10/02/21 Sewing Machine Operator Semiautomatic Relationship Specialty Start Date End Date Wear, Kay [address] [place], [place] 4748[address] PCP - General 10/02/21 Sewing Machine Operator Semiautomatic Relationship Specialty Start Date End Date Wear, Kay [address] [place] [address]29 PCP - General 10/02/21 Sewing Machine Operator Semiautomatic Relationship Specialty Start Date End Date Wear, Kay [address] [place], [place] 364109 PCP - General 10/02/21 Sewing Machine Operator Semiautomatic Relationship Specialty Start Date End Date Wear, Kay [address] [place], [place] 625659 PCP - General 10/02/21 Sewing Machine Operator Semiautomatic Relationship Specialty Start Date End Date Wear, Kay [address] [place], [place] 657539 PCP - General 10/02/21 Sewing Machine Operator Semiautomatic Relationship Specialty Start Date End Date Wear, Kay [address] [place], [place] 260419 PCP - General 10/02/21 Sewing Machine Operator Semiautomatic Relationship Specialty Start Date End Date Wear, Kay [address] [place], [place] 033819 PCP - General 10/02/21 Sewing Machine Operator Semiautomatic Relationship Specialty Start Date End Date Wear, Kay [address] [place], [place] [id number] PCP - General 10/02/21 Sewing Machine Operator Semiautomatic Relationship Specialty Start Date End Date Wear, Kay [address] [place], [place] 794579 PCP - General 10/02/21 Sewing Machine Operator Semiautomatic Relationship Specialty Start Date End Date Wear, Kay [address] [place], [place] 155359 PCP - General 10/02/21 Sewing Machine Operator Semiautomatic Relationship Specialty Start Date End Date Wear, Kay [address] [place] [address] PCP - General 10/02/21 Sewing Machine Operator Semiautomatic Relationship Specialty Start Date End Date WearKay [address] [place] [id number] PCP - General 10/02/21 Sewing Machine Operator Semiautomatic Relationship Specialty Start Date End Date Wear, Kay [address] [place] [address] PCP - General 10/02/21 Sewing Machine Operator Semiautomatic Relationship Specialty Start Date End Date Wear, Kay [address] [place] 833369 PCP - General 10/02/21 Sewing Machine Operator Semiautomatic Relationship Specialty Start Date End Date Wear, Kay [address] [place] [address] PCP - General 10/02/21 Sewing Machine Operator Semiautomatic Relationship Specialty Start Date End Date Wear, Kay [address] [place] 6[address]69 PCP - General 10/02/21 Sewing Machine Operator Semiautomatic Relationship Specialty Start Date End Date Wear, Kay [address] [place] [address] PCP - General 10/02/21 Sewing Machine Operator Semiautomatic Relationship Specialty Start Date End Date Wear, Kay [address] [place] [address]89 PCP - General 10/02/21 Sewing Machine Operator Semiautomatic Relationship Specialty Start Date End Date Wear, Kay [address] [place], [place] [address] PCP - General 10/02/21 Sewing Machine Operator Semiautomatic Relationship Specialty Start Date End Date Kay Kerr [address] [facility] [place], [place] [id number] PCP - General 10/02/21 Sewing Machine Operator Semiautomatic Relationship Specialty Start Date End Date Kay Kerr MD [address] [facility] [place] [address] PCP - General Internal Medicine 01/06/24 Sewing Machine Operator Semiautomatic Relationship Specialty Start Date End Date Kay Kerr MD [address] [facility] [place] [address] PCP - General Internal Medicine 01/06/24 Sewing Machine Operator Semiautomatic Relationship Specialty Start Date End Date System, [facility] [employer] [address] [place] [facility] [place] [address] PCP - General 05/28/24 Sewing Machine Operator Semiautomatic Relationship Specialty Start Date End Date System, [facility] [employer] [address] [place] [address] PCP - General 05/28/24 Sewing Machine Operator Semiautomatic Relationship Specialty Start Date End Date System, [facility] [employer] [address] [place] [address] PCP - General 05/28/24 Sewing Machine Operator Semiautomatic Relationship Specialty Start Date End Date System, [facility] [employer] [address] [place] [address] PCP - General 05/28/24 Sewing Machine Operator Semiautomatic Relationship Specialty Start Date End Date System, [facility] [address] [place] [address] PCP - General 05/28/24 Sewing Machine Operator Semiautomatic Relationship Specialty Start Date End Date System, [facility] [employer] [address] [place] [address] PCP - General 05/28/24 Sewing Machine Operator Semiautomatic Relationship Specialty Start Date End Date System, [facility] [employer] [address] [place] [address] PCP - General 05/28/24 Sewing Machine Operator Semiautomatic Relationship Specialty Start Date End Date System, [address] [place] [address] PCP - General 05/28/24 Sewing Machine Operator Semiautomatic Relationship Specialty Start Date End Date System, [place] [address] [place] [facility] [place] [address] PCP - General 05/28/24 Sewing Machine Operator Semiautomatic Relationship Specialty Start Date End Date System, [address] [place] [address] PCP - General 05/28/24 Sewing Machine Operator Semiautomatic Relationship Specialty Start Date End Date System, [address] [place] [address] PCP - General 05/28/24 Sewing Machine Operator Semiautomatic Relationship Specialty Start Date End Date System, [address] [place] [address] PCP - General 05/28/24 Sewing Machine Operator Semiautomatic Relationship Specialty Start Date End Date System, [address] [address] PCP - General 05/28/24 Sewing Machine Operator Semiautomatic Relationship Specialty Start Date End Date System, [address] [place] [address] PCP - General 05/28/24 Source Comments (unrecognize d section and content) In the event this informatio n is protected by the Federal Confidentiality of Alcohol and Drug Abuse Patient Records regulations: The Federal rules restrict any use of the information to criminally investigate or prosecute any alcohol or drug abuse patient.[facility] the event this information is protected by the Federal Confidentiality of Alcohol and Drug Abuse Patient Records regulations: The Federal rules restrict any use of the information to criminally investigate or prosecute any alcohol or drug abuse patient.[facility] FOR RECORDS PERTAINING TO PATIENTS WHO ARE OR HAVE BEEN ENROLLED IN A CHEMICAL DEPENDENCY/SUBSTANCEABUSE PROGRAM, SOME INFORMATION MAY BE OMITTED. This clinical summary was aggregated from multiple sources. Caution should be exercised in using it in the provision of clinical care. This summary normalizes information from multiple sources, and as a consequence, information in this document may materially change the coding, format and clinical context of patient data. In addition, data may be omitted in some cases. CLINICAL DECISIONS SHOULD BE BASED ON THE PRIMARY CLINICAL RECORDS. [employer] [facility]. provides no warranty or guarantee of the accuracy or completeness of information in this document.
[2024-12-30 12:48] LABS: Anisocytosis 1+
[2024-12-30 13:11] LABS: Lipase 60 U/L (13-75)
[2024-12-30 13:12] LABS: AST(SGOT) 25 U/L (<=37); Alanine Aminotransfer ALT/SGPT 6 U/L (<=46); Albumin, Serum 3.3 g/dL (3.5-5.0); Alkaline Phosphatase 214 U/L (40-129); Anion Gap 19 (5-15); BUN 8 mg/dL (4-19); BUN/Creat Ratio 14.4 RATIO (10-20); Calcium,Total 8.4 mg/dL (7.6-11.0); Carbon Dioxide 27.1 mmol/L (21.0-32.0); Chloride 97 mmol/L (98-108); Estimated Creatinine Clearance 185.56 ml/min (50-250); Globulin 3.8 g/dL (2.2-4.2); Glucose 110 mg/dL (70-99); Potassium 3.0 mmol/L (3.3-5.1)
[2024-12-30 13:17] LABS: Alcohol, Blood (Medical)-Serum 297.0 mg/dL (<=10.0)
--- NOTE | 2024-12-30 13:50 | PCM.HP.STD ---
HPI - General General Date of Admission: 12/30/24 Date of Service: 12/30/24 Chief Complaint: Alcohol detox HPI Narrative KERA EASON, is a 44 M who presented to the emergency department at [facility] on 12/30/2024 requesting detox from alcohol. Patient is a longtime alcoholic and has been to rehab several times. He was discharged about 3 weeks ago from [facility] after going through detox at that time and does have outpatient follow-up in their alcohol and drug recovery program. He did well for about 2 weeks and then relapsed. He is currently drinking about 12 shots a day. Last drink was about 3 to 4 hours prior to presentation and he is acutely intoxicated on presentation but having signs of withdrawal. Blood alcohol level was almost 300. He has significant anxiety and suffers from bipolar disorder. He has had psychotic episodes previously. Currently very anxious complaining of tremors, nausea and suffering from physical manifestations of elevated blood pressure and tachycardia. He denies any other substance abuse but does smoke heavily. Vital signs on presentation showed temperature 98.2, heart rate 125, respiratory 18, blood pressure is 142/115 and pulse ox 100% on room air. CBC shows an microcytic anemia and patient has known gastric ulcer and has follow-up pending with gastroenterology and summa but missed the appointment. Will repeat CBC in a.m. for stability but hemoglobin on presentation was 11.4. Chemistry panel showed hyponatremia but was otherwise unremarkable. Liver functions are normal. UA is unremarkable. Toxicology screen was presumptive positive for barbiturates and benzodiazepines as well as cannabinoids. [facility] Medical History Bipolar 2 disorder Gastric ulcer Substance abuse Alcohol abuse Depression Anxiety Chronic pain Smoker Hypertension Sciatica Home Medications ?Medication ?Instructions ?Recorded ?Last Taken ?Type acamprosate 333 mg tablet,delayed 666 mg PO TID 12/30/24 12/27/24 History release acetaminophen 500 mg tablet 1,000 mg PO BID PRN 12/30/24 12/29/24 History buprenorphine 8 mg-naloxone 2 mg 1 ea sublingual BID 12/30/24 12/29/24 History sublingual film buspirone 15 mg tablet 15 mg PO TID 12/30/24 12/28/24 History docusate sodium 100 mg capsule 100 mg PO BID 12/30/24 Unknown History (Stool Softener) folic acid 1 mg tablet 1 mg PO DAILY 12/30/24 12/28/24 History lansoprazole 15 mg capsule,delayed 15 mg PO DAILY 12/30/24 12/27/24 History release (Acid Privacy Director (lansoprazole)) loratadine 10 mg tablet 10 mg PO DAILY PRN allergy symptoms 12/30/24 Unknown History multivitamin 1 tab PO DAILY 12/30/24 Unknown History omeprazole 40 mg capsule,delayed 40 mg PO DAILY 12/30/24 12/28/24 History release pantoprazole 40 mg tablet,delayed 40 mg PO BID 12/30/24 12/28/24 History release prazosin 5 mg capsule 10 mg PO QHS NIGHT TERRORS 12/30/24 12/28/24 History quetiapine 50 mg tablet 150 mg PO QHS 12/30/24 12/28/24 History sertraline 50 mg tablet 150 mg PO DAILY 12/30/24 12/28/24 History Allergy/AdvReac Type Severity Reaction Status Date / Time No Known Allergies Allergy Verified 12/30/24 11:56 Family History (Updated 12/30/24 @ 14:[address] France Kaba DO) Other COPD (chronic obstructive pulmonary disease) Surgical History Hx of heart artery stent History of back surgery Social History (Updated 12/30/24 @ 14:[address] France Kaba DO) Smoking Status: Current every day smoker tobacco type: cigarettes and e-cigarettes alcohol intake: current alcohol intake frequency: 3 or more drinks per day Alcohol type: hard liquor details: 12 shots daily substance use type: marijuana ROS Constitutional Constitutional: Reports fatigue and weakness; Denies anorexia, change in weight, chills, fever(s), malaise, night sweats or other Eyes Eyes: Denies blurry vision, change in eye color, change in vision, discharge from eye(s), double vision, erythema, eye pain, loss of vision or other ENT HEENT: Denies abnormal hearing, dysphagia, ear pain, epistaxis, headache(s), hearing loss, nasal congestion, nasal discharge, post nasal drip, sinus pressure, sore throat or other Cardiovascular Cardiovascular: Denies chest pain, claudication, dyspnea on exertion, edema, lightheadedness, orthopnea, palpitations, paroxysmal nocturnal dyspnea, rapid heart rate, syncope or other Respiratory/Chest Respiratory/Chest: Denies cough, dyspnea, excessive phlegm production, hemoptysis, productive cough, shortness of breath at rest, shortness of breath with exertion, wheezing or other Gastrointestinal Gastrointestinal: Reports nausea; Denies abdominal pain, coffee ground emesis, constipation, diarrhea, dyspepsia, hematemesis, hematochezia, loose stools, melena, vomiting or other Genitourinary Genitourinary: Denies burning urination, difficulty urinating, dysuria, hematuria, nocturia, urinary frequency, urinary hesitancy, urinary incontinence, urinary urgency or other Musculoskeletal Musculoskeletal: Reports myalgias; Denies arthralgias, back pain, joint pain, joint stiffness, joint swelling, neck pain or other Neurologic Neurologic: Denies abnormal gait, abnormal speech, confusion, disequilibrium, dizziness, focal weakness, headache(s), numbness, paresthesias, seizure-like activity, seizures, syncope, tingling, tremor(s) or other Psychiatric Psychiatric: Reports anxiety and depression; Denies homicidal ideation, suicidal ideation or other Endocrine Endocrinology: Denies change in body appearance, cold intolerance, excessive sweating, heat intolerance, polydipsia, polyuria or other Hematologic/Lymphatic Hematologic/Lymphatic: Denies anemia, easy bleeding, easy bruising, lymphadenopathy or other Allergic/Immunologic Allergic/Immunologic: Denies rhinitis, hives, eczemia, asthma or other Vital Signs Vital Signs Vital Signs: 12/30/24 11:54 Temperature 98.2 F Temperature Source Oral Pulse Rate 125 H Respiratory Rate 18 Blood Pressure 142/115 H Blood Pressure Mean 124 Pulse Ox 100 Oxygen Delivery Method Room Air Weight Weight: 84.51 kg Body Mass Index (BMI) 26.7 Physical Exam Const alert, oriented x3 and well nourished; Negative for no apparent distress, average body habitus or healthy appearing Constitutional Narrative: Overweight, middle-aged, white male, lying in bed, appears older than stated age, family at bedside, appears to be acutely withdrawing but nontoxic General Appearance: cooperative HEENT normocephalic, head/scalp atraumatic, hearing grossly normal bilaterally and moist oral mucous membranes HEENT Narrative: No thrush, extremely poor dentition Eyes conjunctivae normal Eyes Narrative: No scleral icterus Resp normal respiratory effort, no retractions, no use of accessory muscles and No clear to auscultation bilaterally Resp Narrative: Scattered end expiratory wheeze Auscultation: Negative for crackles, rhonchi or wheezes Cardio regular rate, regular rhythm, S1 normal heart sound, S2 normal heart sound, no murmurs, no rub, no gallops and no clicks GI normal to inspection, nondistended, normoactive bowel sounds, soft to palpation and non-tender Extremity no clubbing, cyanosis or edema Extremity Narrative: 2+ pedal and radial pulses Neuro oriented x3, moves all extremities and no focal motor deficits Neuro Narrative: Mild fine tremor noted Speech: speech normal Psych Psych Narrative: Affect is flat and patient seems to be significantly anxious Mood & Affect: anxious Results Lab / Micro Data 12/30/24 12:09 12/30/24 12:09 Labs: Laboratory Results - last 24 hr 12/30/24 12:09: WBC 8.3, RBC 5.15, Hgb 11.4 L, Hct 36.4 L, MCV 70.7 L, MCH 22.1 L, MCHC 31.3 L, RDW Std Deviation 58.0 H, RDW Coeff of Mehran 23.9 H, Plt Count 362, MPV 9.2, Immature Gran % (Auto) 0.700, Neut % (Auto) 63.4, Lymph % (Auto) 23.8, Davie % (Auto) 10.7 H, Eos % (Auto) 0.1, Baso % (Auto) 1.3 H, Absolute Neuts (auto) 5.2, Absolute Lymphs (auto) 1.97, Nucleated RBC % 0, Anisocytosis 1+, Sodium 143, Potassium 3.0 L, Chloride 97 L, Carbon Dioxide 27.1, Anion Gap 19 H, BUN 8, Creatinine 0.53 L, Estim Creat Clear Calc 185.56, Est GFR (MDRD) Non-Af 128, BUN/Creatinine Ratio 14.4, Glucose 110 H, Calcium 8.4, Total Bilirubin 0.36, AST 25, ALT 6, Alkaline Phosphatase 214 H, Total Protein 7.1, Albumin 3.3 L, Globulin 3.8, Albumin/Globulin Ratio 0.9, Lipase 60, Ethyl Alcohol 297.0 H Assessment & Plan Assessment/Plan (1) Substance abuse: (2) Alcohol abuse: (3) Alcohol withdrawal: (4) Hypokalemia: (5) Alcohol intoxication: PLAN: Plan Alcohol abuse with pending alcohol withdrawal and acute alcohol intoxication - Blood alcohol on presentation was almost 300 and patient is showing signs of withdrawal at this time - Start phenobarbital taper - As needed Ativan with CIWA - Thiamine and folate - Supportive medication for withdrawal symptoms - Consults GI Hypokalemia - Replaced in the ER - Repeat in a.m. - Check a.m. magnesium level Anemia - Mild but stability is unclear--> acuity is unknown - Will repeat CBC in a.m. - Patient has known gastric ulcer but no signs of acute bleeding at this time History of gastric ulcer - Had appointment with [facility] but had to miss it and next appointment is not available until next year - May benefit from gastroenterology referral if convenient for them with Dr. Rubalcava prior to discharge - Continue PPI - Add Carafate History of night terrors/bipolar disorder - Continue prazosin - Continue Seroquel - Continue Zoloft History of polysubstance abuse - Continue sublingual buprenorphine/naloxone - Hold home acamprosate History of CAD - Previous stents remotely - Would avoid aspirin and Plavix due to history of peptic ulcer disease - No current chest pain DVT prophylaxis -They might have to Them low risk - Encourage early and frequent mobility CODE STATUS - Full code Charges/Coding Visit Charges Inpatient E&M: 66022 Subs Hosp L2
[2024-12-30 13:56] LABS: Mucous, Urine 0 SEEN /hpf (<or=2+); Squamous Epithelial Cells - UA 0 SEEN /hpf (0-5)
[2024-12-30 14:01] LABS: Color, Urine Yellow (Yellow); Glucose, Dipstick Normal (Normal); Ketone-Dipstick Negative (Negative); Leukocyte Esterase-Dipstick Negative /ul (Negative); Nitrite-Dipstick Negative (Negative); Occult Blood-Urine 10 /ul (Negative); Protein-Dipstick 100 mg/dl (Negative); Specific Gravity, Urine 1.010 (1.002-1.030); Urine Bilirubin Dipstick Negative (Negative)
[2024-12-30] MEDS: Potassium Chloride Oral Tablet 20 MEQ 40 MEQ PO (14:01)
--- NOTE | 2024-12-30 14:06 | CM.ED ---
Social Work Date of referral: 12/30/24 Reason for referral: Substance abuse/resources needed and no Primary Care Physician (PCP) on file. Patient provided consent for social work visit. Patient's mother also present and at bedside. Patient confirmed he does not have a PCP at this time and accepted a handout for the [facility] as well as a folder for 180 for resources including support for addiction/counseling/meetings, etc. which patient also accepted. Chela Alaniz, SLIP TENDER, FEEDMOBILE DRIVER
[2024-12-30 14:07] LABS: Red Blood Cells-Urine 0-5 SEEN /hpf (0-5)
[2024-12-30 14:16] LABS: Barbiturate Urine PRESUMPTIVE POSITIVE (< 200 ng/mL); Benzodiazepine Urine PRESUMPTIVE POSITIVE (< 200 ng/mL); PCP Urine NEGATIVE (< 25 ng/mL); THC Urine PRESUMPTIVE POSITIVE (< 50 ng/mL)
--- OUTSIDE RECORDS SUMMARY | 2024-12-30 14:44 | XMS RPT_ITS | CCD ---
Author Organization [facility] Care Team Providers Care Sales Donor Recruitment Representative Name Role Phone LETA HASSAN Unavailable Unavailable PHYSICIAN, NONE Unavailable Unavailable PHYSICIAN, NONE Unavailable Unavailable TIANA, GE W Unavailable Unavailable TIANA, GE W Unavailable Unavailable SABOTANATHALY W Unavailable Unavailable ALMAS HUTCHINS Unavailable Unavailable PHYSICIAN, NONE Unavailable Unavailable ALMAS HUTCHINS Unavailable Unavailable PHYSICIAN, NONE Unavailable Unavailable GERDA SCHULER Unavailable Unavailable PHYSICIAN, NONE Unavailable Unavailable Teddy Sanford Primary Care Provider Teddy Sanford Primary Care Provider Juvenal ROSARIO, Teddy Craig Primary Care Provider Juvenal ROSARIO, Teddy Craig Primary Care Provider Teddy Sanford MD Primary Care Provider Kay Kerr Primary Care Provider [phone] [place], Ms. Ector Short Attending Leah Ron, [...] Attending Unavailable KAY KERR Primary Care Unavailable [facility] Primary Care Provider [phone] Unavailable Primary Care Provider Unavailabl e KAY KERR Primary Care Unavailable ABNER LOCK Admitting Unavailable ABNER LOCK Attending Unavailable KAY KERR Primary Care Unavailable PALLACI, BETSY Anderson Referring Unavailable WELLOCK, RAMESH R Attending Unavailable WEAR, ANABEL Primary Care Unavailable BETSY BLUM Attending Unavailable KENRICK, ALI Attending Unavailable KENRICK, ALI Attending Unavailable WEAR, ANABEL Primary Care Unavailable NAIR, MARQUISE R Referring Unavailable KENRICK, ALI Attending Unavailable KENRICK, ALI Attending Unavailable KENRICK, ALI Attending Unavailable KENRICK, ALI Attending Unavailable WEAR, KAY Primary Care Unavailable KENRICK, ALI Attending Unavailable WEAR, KAY Primary Care Unavailable KENRICK, ALI Attending Unavailable WEAR, KAY Primary Care Unavailable WEAR, KAY Primary Care Unavailable NAIR, MARQUISE R Referring Unavailable WEAR, ANABEL Primary Care Unavailable NAIR, MARQUISE R Referring Unavailable WEAR, ANABEL Primary Care Unavailable DEBORAHITESH Referring Unavailable WEAR, ANABEL Primary Care Unavailable LAURI DIOR Referring Unavailable WEAR, ANABEL Primary Care Unavailable PALLACI, BETSY Anderson Referring Unavailable WEAR, ANABEL Primary Care Unavailable PALLACI, BETSY Anderson Referring Unavailable PALLACI, BETSY Anderson Referring Unavailable WEAR, ANABEL Primary Care Unavailable CHELA TENORIO Attending Unavailable WEAR, ANABEL Primary Care Unavailable CHELA TENORIO Referring Unavailable KENRICK, CATALINO Attending Unavailable WEAR, ANABEL Primary Care Unavailable RAIZA MCMILLAN Attending Unavailable DARNLEY, ESTEFANI Attending Unavailable WEAR, ANABEL Primary Care Unavailable KENRICK, CATALINO Attending Unavailable KENRICK, ALI Attending Unavailable WEAR, ANABEL Primary Care Unavailable KENRICK, ALI Attending Unavailable WEAR, ANABEL Primary Care Unavailable WEAR, ANABEL Primary Care Unavailable KENRICK, CATALINO Attending Unavailable KENRICK, CATALINO Attending Unavailable KENRICK, CATALINO Referring Unavailable DARKENYON, ESTEFANI Attending Unavailable WEAR, ANABEL Primary Care Unavailable ILEANA TRISTAN Referring Unavailable YOANNA CASTRO Attending Unavailable WEAR, ANABEL Primary Care Unavailable DARNLEYESTEFANI Attending Unavailable WEAR, ANABEL Primary Care Unavailable WEAR, ANABEL Primary Care Unavailable DEBORAHITESH Referring Unavailable KENRICK, ALI Attending Unavailable WEAR, ANABEL Primary Care Unavailable KENRICK, ALI Attending Unavailable WEAR, ANABEL Primary Care Unavailable KENRICK, ALI Attending Unavailable KENRICK, ALI Attending Unavailable WEAR, ANABEL Primary Care Unavailable KENRICK, ALI Attending Unavailable WEAR, ANABEL Primary Care Unavailable KENRICK, ALI Attending Unavailable [...] Primary Care Unavailable CRANKSHAW, RAIZA Admitting Unavailable ANMA, RAIZA Attending Unavailable ESTEFANI NAVA Consulting Unavailable Allergies Allergy Classification Reported Allergen(s) Allergy Type Date of Onset Reaction(s) Facility NSAIDs (1 source) NSAIDs Drug Allergy 02-26-2019 [facility] (8 sources) NSAIDs Propensity to adverse reactions to drug 02-26-2019 [facility] Work Phone: (20 sources) nickel sulfate; Translations: [NICKEL] Drug Allergy 12-14-2019 [facility] (15 sources) Other; Translations: [OTHER] Propensity to adverse reactions 07-21-2009 [facility] (20 sources) Zinc Drug Allergy 12-23-2023 [facility] (2 sources) nickel Drug Allergy 12-14-2019 [facility] Work Phone: Medications Current Medications Medication Drug [...] Oral, EVERY 6 HOURS PRN, Indigestion, Starting [facility] 07/03/20 at 2013 amLODIPine 5 mg [...] 4 HOURS PRN, Pain Severe (7-10), Starting [facility] 07/03/20 at 2021 pantoprazole 40 mg [...] COCET) 5-325 MG per tablet 1 tablet [id number] 200 actuat albuterol 0.09 mg/actuat metered dose [...] sodium chloride 0.9 % 250 mL IVPB ([facility]) (5 sources) Start: 04-16-2023 End: 04-17-2023 azithromycin (Zithromax) 500 mg in sodium chloride 0.9 % 250 mL IVPB ([facility]) Start: 01-29-2023 End: 01-29-2023 azithromycin (Zithromax) 500 mg in sodium chloride 0.9 % 250 mL IVPB ([facility]) Start: 09-18-2022 End: 09-18-2022 azithromycin (Zithromax) 500 mg in sodium chloride 0.9 % 250 mL IVPB ([facility]) bacitracin 0.5 unt/mg / polymyxin b 10 [...] mg docusate sodium 50 mg / sennosides, alf 8.6 mg oral tablet (5 sources) Start: [...] tablet, Oral, Daily PRN, constipation, Starting on [facility] 08/26/22 at 1630 doxycycline monohydrate 100 [...] Every 6 hours PRN, anxiety, Starting on [facility] 08/26/22 at 1630 ibuprofen 600 mg [...] 05/09/2024 Discontinued (Therapy completed) Start: 05-15-2019 lisinopril (PA INIVIL;ZESTRIL) tablet 10 mg Start: 05-15-2019 End: [...] of 12 or above, please notify ADM electronics engineering technician if need 3 consequetive doses, Starting [...] mL IVPB Mini-Bag Plus polyethylene glycol [id number] [id number] mg powder for oral solution (20 sources) [...] rosuvastatin ( CRESTOR) tablet 40 mg sennosides, alf 8.6 mg oral tablet (14 sources) Start: [...] Start: 09-18-2022 End: 09-19-2022 5-250 mL/hr, IntraVENous, PA N, if patient receiving piggyback infusions and [...] Care, After every IV line use, Starting [facility] 09/22/19 at 0914 Start: 09-21-2019 End: 09-21-2019 [...] Coronary arteriosclerosis; Translations: [Atherosclerotic heart disease of [place] coronary artery without angina pectoris] Onset: 2 [...] 02-11-2024 Episodic Other aftercare (5 sources) Other ferry terminal agent (current) drug therapy; Translations: [Other ferry terminal agent (current) drug therapy] Onset: 3 Episodic Other [...] Facility Progress Noteon 12-11-2024 Progress Note Normal [facility] CBC W Auto Differential pane l (Bld)Ordered By: Naila Luna on 12-04-2024 Basophils (Bld) [#/Vol] 0.1 10*3/uL 0.0 - 0.2 10*3/uL [facility] Basophils/100 WBC (Bld) 1 % 0.0 - 2.0 % [facility] Eosinophils (Bld) [#/Vol] 0.3 10*3/uL 0.0 - 0.5 10*3/uL [facility] Eosinophils/100 WBC (Bld) 4.3 % 0.0 - 6.0 % [facility] Erythrocyte distribution width (RBC) [Ratio] 22.6 % High 11.5 - 15.0 % [facility] Hematocrit (Bld) [Volume fraction] 30.4 % Low 40.0 - 52.0 % [facility] Hemoglobin (Bld) [Mass/Vol] 9.3 g/dL Low 13.0 - 18.0 g/dL [facility] Immature granulocytes (Bld) [#/Vol] 0 10*3/uL NINF - 0.1 10*3/uL [facility] Immature granulocytes/100 WBC (Bld) 0.6 % 0.0 - 2.0 % [facility] Interpretation and review of laboratory results Abnormal [facility] Lymphocytes (Bld) [#/Vol] 1.5 10*3/uL 1.0 - 4.3 10*3/uL [facility] Lymphocytes/100 WBC (Bld) 21.8 % 15.0 - 45.0 % [facility] MCH (RBC) [Entitic mass] 23.5 pg Low 26.0 - 34.0 pg [facility] MCHC (RBC) [Mass/Vol] 30.6 % 30.5 - 36.0 % [facility] MCV (RBC) [Entitic vol] 76.8 fL Low 77.0 - 99.0 fL [facility] Monocytes (Bld) [#/Vol] 0.6 10*3/uL 0.0 - 0.9 10*3/uL [facility] Monocytes/100 WBC (Bld) 8.7 % 5.0 - 13.0 % [facility] Neutrophils (Bld) [#/Vol] 4.4 10*3/uL 1.8 - 7.5 10*3/uL [facility] Neutrophils/100 WBC (Bld) 63.6 % 38.0 - 82.0 % [facility] Nucleated RBC/100 WBC (Bld) [Ratio] 0 % [facility] Platelet mean volume (Bld) [Entitic vol] 9.7 fL 9.0 - 12.7 fL [facility] Platelets (Bld) [#/Vol] 250 10*3/uL 140 - 440 10*3/uL [facility] RBC (Bld) [#/Vol] 3.96 10*6/uL Low 4.40 - 5.9 0 10*6/uL [facility] WBC (Bld) [#/Vol] 6.9 10*3/uL 3.6 - 10.7 10*3/uL [facility] CBC WITH AUTO DIFFERENTIALon 12-04-2024 Basophils (Bld) [#/Vol] 0.1 10*3/uL Normal 0.0-0.2 [facility] Comment on above: Performed By: #### L [id number] ####Jewelry Finisher: JACK ORTIZ ([id number])[facility])[address] [place] [address] Basophils/100 WBC (Bld) 1.0 % Normal 0.0-2.0 [facility] Comment on above: Performed By: #### L [id number] ####Jewelry Finisher: JACK ORTIZ ([id number])[facility] ([facility])[address] [place] [address] Eosinophils (Bld) [#/Vol] 0.3 10*3/uL Normal 0.0-0.5 [facility] Comment on above: Performed By: #### L [id number] ####Jewelry Finisher: JACK ORTIZ ([id number])[address] Eosinophils/100 WBC (Bld) 4.3 % Normal 0.0-6.0 [facility] Comment on above: Performed By: #### L [id number] ####Jewelry Finisher: JACK ORTIZ ([id number])[facility])[address] [place] [address] Erythrocyte distribution width (RBC) [Ratio] 22.6 % High 11.5-15.0 [facility] Comment on above: Performed By: #### L [id number] ####Jewelry Finisher: JACK ORTIZ ([id number])[address] Hematocrit (Bld) [Volume fraction] 30.4 % Low 40.0-52.0 [facility] Comment on above: Performed By: #### L [id number] ####Jewelry Finisher: JACK ORTIZ ([id number])[address] Hemoglobin (Bld) [Mass/Vol] 9.3 g/dL Low 13.0-18.0 [facility] Comment on above: Performed By: #### L [id number] ####Jewelry Finisher: JACK ORTIZ ([id number])[address] IMMATURE GRANS % 0.6 % Normal 0.0-2.0 [facility] Comment on above: Performed By: #### L [id number] ####Jewelry Finisher: JACK ORTIZ ([id number])[address] IMMATURE GRANS ABSOLUTE 0.0 10*3/uL Normal <0.1 [facility] Comment on above: Performed By: #### L [id number] ####Jewelry Finisher: JACK ORTIZ ([id number])[facility])[address] [place] [address] Lymphocytes (Bld) [#/Vol] 1.5 10*3/uL Normal 1.0-4.3 [facility] Comment on above: Performed By: #### L [id number] ####Jewelry Finisher: JACK ORTIZ ([id number])[facility])[address] [place] [address] Lymphocytes/100 WBC (Bld) 21.8 % Normal 15.0-45.0 [facility] Comment on above: Performed By: #### L [id number] ####Jewelry Finisher: JACK ORTIZ ([id number])[facility])[address] [place] [address] MCH (RBC) [Entitic mass] 23.5 pg Low 26.0-34.0 [facility] Comment on above: Performed By: #### L [id number] ####Jewelry Finisher: JACK ORTIZ ([id number])[facility])[address] [place] [address] MCHC 30.6 % Normal 30.5-36.0 [facility] Comment on above: Performed By: #### L [id number] ####Jewelry Finisher: JACK ORTIZ ([id number])[facility])[address] [place] [address] MCV (RBC) [Entitic vol] 76.8 fL Low 77.0-99.0 [facility] Comment on above: Performed By: #### L [id number] ####Jewelry Finisher: JACK ORTIZ ([id number])[facility])[address] [place] [address] Monocytes (Bld) [#/Vol] 0.6 10*3/uL Normal 0.0-0.9 [facility] Comment on above: Performed By: #### L [id number] ####Jewelry Finisher: JACK ORTIZ ([id number])[facility])[address] [place] [address] Monocytes/100 WBC (Bld) 8.7 % Normal 5.0-13.[address] [facility] Comment on above: Performed By: #### L [id number] ####Jewelry Finisher: JACK ORTIZ ([id number])[facility] ([facility])[address] [place] [address] NEUTROPHILS ABSOLUTE 4.4 10*3/uL Normal 1.8-7.5 [facility] Comment on above: Performed By: #### L [id number] ####Jewelry Finisher: JACK ORTIZ ([id number])[facility] ([facility])[address] [place] [address] Neutrophils/100 WBC (Bld) 63.6 % Normal 38.0-82.0 [facility] Comment on above: Performed By: #### L [id number] ####Jewelry Finisher: JACK ORTIZ ([id number])[facility] ([facility])[address] [place] [address] NRBC 0.0 /100 WBCs Normal 0.0-2.0 [facility] Comment on above: Performed By: #### L [id number] ####Jewelry Finisher: JACK ORTIZ ([id number])[facility] ([facility])[address] [place] [address] Platelet mean volume (Bld) [Entitic vol] 9.7 fL Normal 9.0-12.7 [facility] Comment on above: Performed By: #### L [id number] ####Jewelry Finisher: JACK ORTIZ ([id number])[facility] ([facility])[address] [place] [address] Platelets (Bld) [#/Vol] 250 10*3/uL Normal 140-440 [facility] Comment on above: Performed By: #### L [id number] ####Jewelry Finisher: JACK ORTIZ ([id number])[facility] ([facility])[address] [place] [address] RBC (Bld) [#/Vol] 3.96 10*6/uL Low 4.40-5.90 [facility] Comment on above: Performed By: #### L [id number] ####Jewelry Finisher: JACK ORTIZ ([id number])[facility])[address] [place] [address] WBC (Bld) [#/Vol] 6.9 10*3/uL Normal 3.6-10.7 [facility] Comment on above: Performed By: #### L [id number] ####Jewelry Finisher: JACK ORTIZ ([id number])[facility])[address] [place] [address] COMPREHENSIVE METABOLIC PANE Eduardo 12-04-2024 Albumin [Mass/Vol] 2.8 g/dL Low 3.5-5.0 [facility] Comment on above: Performed By: #### L AB17, LAB30 ####Jewelry Finisher: JACK ORTIZ ([id number])[facility])[address] [place] [address] ALP [Catalytic activity/Vol] 89 U/L Normal 40-150 [facility] Comment on above: Performed By: #### L AB17, LAB30 ####Jewelry Finisher: JACK ORTIZ ([id number])[facility])[address] [place] [address] ALT [Catalytic activity/Vol] 12 U/L Normal <40 [facility] Comment on above: Performed By: #### L AB17, LAB30 ####Jewelry Finisher: JACK ORTIZ ([id number])[facility])[address] [place] [address] Anion gap [Moles/Vol] 8 mmol/L Normal 3-13 [facility] Comment on above: Performed By: #### L AB17, LAB30 ####Jewelry Finisher: JACK ORTIZ ([id number])[facility])[address] [place] [address] AST [Catalytic activity/Vol] 25 U/L Normal <34 [facility] Comment on above: Performed By: #### L AB17, LAB30 ####Jewelry Finisher: JACK ORTIZ ([id number])[facility] ([facility])[address] [place] [address] [place] Bilirubin [Mass/Vol] 0.2 mg/dL Normal <1.2 [facility] Comment on above: Performed By: #### L AB17, LAB30 ####Jewelry Finisher: JACK ORTIZ ([id number])[facility])[address] [place] [address] Calcium [Mass/Vol] 8.3 mg/dL Low 8.4-10.2 [facility] Comment on above: Performed By: #### L AB17, LAB30 ####Jewelry Finisher: JACK ORTIZ ([id number])[facility] ([facility])[address] [place] [address] Chloride [Moles/Vol] 99 mmol/L Normal 98-107 [facility] Comment on above: Performed By: #### L AB17, LAB30 ####Jewelry Finisher: JACK ORTIZ ([id number])[facility])[address] [place] [address] CO2 [Moles/Vol] 26 mmol/L Normal 22-29 [facility] Comment on above: Performed By: #### L AB17, LAB30 ####Jewelry Finisher: JACK ORTIZ ([id number])[facility] ([facility])[address] [place] [address] Creatinine [Mass/Vol] 0.67 mg/dL Low 0.72-1.25 [facility] Comment on above: Performed By: #### L AB17, LAB30 ####Jewelry Finisher: JACK ORTIZ ([id number])[facility] ([facility])[address] [place] [address] GLOMERULAR FILTRATION RATE ML/MIN/1.73 SQ M.PREDICTED >90.0 Normal >60.0 [facility] Comment on above: Result Comment: Calc ulation based on the Chronic Kidney Disease Epidemiology Collaboration (CKD-EPI) equation refit without adjustment for race Performed By: #### L AB17, LAB30 ####Jewelry Finisher: JACK [id number])[facility] ([facility])[address] [place] [address] Glucose [Mass/Vol] 101 mg/dL High 74-100 [facility] Comment on above: Performed By: #### L AB17, LAB30 ####Jewelry Finisher: JACK ORTIZ ([id number])[facility] ([facility])[address] [place] [address] Potassium [Moles/Vol] 4.3 mmol/L Normal 3.5-5.1 [facility] Comment on above: Result Comment: [facility] potassium values may be up to 0.5 mmol/L lower than serum values. Performed By: #### L AB17, LAB30 ####Jewelry Finisher: JACK ORTIZ ([id number])[facility] ([facility])[address] [place] [address] Protein [Mass/Vol] 6.2 g/dL Low 6.4-8.3 [facility] Comment on above: Performed By: #### L AB17, LAB30 ####Jewelry Finisher: JACK ORTIZ ([id number])[facility] ([facility])[address] [place] [address] Sodium [Moles/Vol] 133 mmol/L Low 136-145 [facility] Comment on above: Performed By: #### L AB17, LAB30 ####Jewelry Finisher: JACK ORTIZ ([id number])[facility] ([facility])[address] [place] [address] Urea nitrogen [Mass/Vol] 12 mg/dL Normal 8-21 [facility] Comment on above: Performed By: #### L AB17, LAB30 ####Jewelry Finisher: JACK ORTIZ ([id number])[facility])[address] [place] [address] Comprehensive metabolic 1998 panelon 12-04-2024 Albumin [Mass/Vol] 2.8 g/dL Low 3.5 - 5.0 g/dL [facility] ALP [Catalytic activity/Vol] 89 U/L 40 - 150 U/L [facility] ALT [Catalytic activity/Vol] 12 [facility] Anion gap [Moles/Vol] 8 mmol/L 3 - 13 mmol/L [facility] AST [Catalytic activity/Vol] 25 U[facility]/L [facility] Bilirubin [Mass/Vol] 0.2 mg/dL NINF - 1.2 mg/dL [facility] Calcium [Mass/Vol] 8.3 mg/dL Low 8.4 - 10. 2 mg/dL [facility] Chloride [Moles/Vol] 99 mmol/L 98 - 10 7 mmol/L [facility] CO2 [Moles/Vol] 26 mmol/L 22 - 29 mmol/L [facility] Creatinine [Mass/Vol] 0.67 mg/dL Low 0.72 - 1.25 mg/dL [facility] GFR/1.73 sq M.predicted (S/P/Bld) [Vol rate/Area] - PINF [facility] Comment on above: Calculation based on the Chronic Kidney Disease Epidemiology Collaboration (CKD-EPI) equation refit without adjustment for race Glucose [Mass/Vol] 101 mg/dL High 74 - 100 mg/dL [facility] Interpretation and review of laboratory results Abnormal [facility] Potassium [Moles/Vol] 4.3 mmol/L 3.5 - 5.1 mmol/L [facility] Comment on above: Plasma potassium ema ues may be up to 0.5 mmol/L lower than serum values. Protein [Mass/Vol] 6.2 g/dL Low 6.4 - 8.3 g/dL [facility] Sodium [Moles/Vol] 133 mmol/L Low 136 - 145 mmol/L [facility] Urea nitrogen [Mass/Vol] 12 mg/dL 8 - 21 mg/dL [facility] Laboratory - Chemistry and C hemistry - challengeon 12-04-2024 Magnesium [Mass/Vol] 1.7 mg/dL 1.6 - 2 .6 mg/dL [facility] Laboratory - Drug toxicology on 12-04-2024 PHENobarbital [Mass/Vol] 16.7 ug/mL 15.0 - 40.0 ug/mL [facility] MAGNESIUMon 12-04-2024 Magnesium [Mass/Vol] 1.7 mg/dL Normal 1.6-2.6 [facility] Comment on above: Result Comment: ORDE R COMMENTS:Higher values can be expected in females during menses. Performed By: #### L [id number], [id number] ####Jewelry Finisher: JACK ORTZI ([id number])[facility] ([facility])[address] [place] [address] [place] Magnesium [Mass/Vol]on 12-04 Higher values can be expected in females during menses. [facility] No Panel Informationon 12-04 Interpretation and review of laboratory results Normal [facility] Interpretation and review of laboratory results Normal [facility] PHENOBARBITALon 12-04-2024 PHENobarbital [Mass/Vol] 16.7 ug/mL Normal 15.0-40.0 [facility] Comment on above: Performed By: #### L AB17, LAB30 ####Jewelry Finisher: JACK ORTIZ ([id number])[facility] ([facility])[address] [place] [address] PHOSPHORUSon 12-04-2024 Phosphate [Mass/Vol] 4.0 mg/dL Normal 2.3-4.7 [facility] Comment on above: Performed By: #### L AB103, [id number] ####Jewelry Finisher: JACK ORTIZ ([id number])[facility] ([facility])[address] [place] [address] [place] Phosphate [Moles/Vol]on 11-16 Phosphate [Mass/Vol] 4 mg/dL 2.3 - 4 .7 mg/dL [facility] Progress Noteon 12-04-2024 Progress Note Normal [facility] Progress Note Normal [facility] [id number] 12-03-2024 [id number] Normal [facility] [id number] 12-03-2024 [id number] 36on 12-03-2024 36 Scheduled patient fo r OV 12/25 at 8:30 with Steven Jacobs Also holding spot for colon/EGD 02/07/[address] Mcmillan 36 Endo slot held for 10 w Felicita. However, may be too soon. Pt will need OV prior. Please use IP slot to accommodate. Thank you. Normal [facility] 36 Patient needs a repeat EGD in 8 weeks for large gastric ulcer, also needs a colonoscopy. [place] can you review openings? Thanks Normal [facility] Anesthesia Noteon 12-03-2024 Anesthesia Note Normal [facility] Anesthesia Note Normal [facility] CBC W Auto Differential pane l (Bld)on 12-03-2024 Basophils (Bld) [#/Vol] 0.1 10*3/uL 0.0 - 0.2 10*3/uL [facility] Basophils/100 WBC (Bld) 1.2 % 0.0 - 2.0 % [facility] Eosinophils (Bld) [#/Vol] 0.3 10*3/uL 0.0 - 0.5 10*3/uL [facility] Eosinophils/100 WBC (Bld) 4.7 % 0.0 - 6.0 % [facility] Erythrocyte distribution width (RBC) [Ratio] 22 % High 11.5 - 15.0 % [facility] Hematocrit (Bld) [Volume fraction] 30.2 % Low 40.0 - 52.0 % [facility] Hemoglobin (Bld) [Mass/Vol] 9.1 g/dL Low 13.0 - 18.0 g/dL [facility] Immature granulocytes (Bld) [#/Vol] 0 10*3/uL NINF - 0.1 10*3/uL [facility] Immature granulocytes/100 WBC (Bld) 0.6 % 0.0 - 2.0 % [facility] Interpretation and review of laboratory results Abnormal [facility] Lymphocytes (Bld) [#/Vol] 1.5 10*3/uL 1.0 - 4.3 10*3/uL [facility] Lymphocytes/100 WBC (Bld) 21.1 % 15.0 - 45.0 % [facility] MCH (RBC) [Entitic mass] 23 pg Low 26.0 - 34.0 pg [facility] MCHC (RBC) [Mass/Vol] 30.1 % Low 30.5 - 36.0 % [facility] MCV (RBC) [Entitic vol] 76.5 fL Low 77.0 - 99.0 fL [facility] Monocytes (Bld) [#/Vol] 0.5 10*3/uL 0.0 - 0.9 10*3/uL [facility] Monocytes/100 WBC (Bld) 6.3 % 5.0 - 13.0 % [facility] Neutrophils (Bld) [#/Vol] 4.8 10*3/uL 1.8 - 7.5 10*3/uL [facility] Neutrophils/100 WBC (Bld) 66.1 % 38.0 - 82.0 % [facility] Nucleated RBC/100 WBC (Bld) [Ratio] 0 % [facility] Platelet mean volume (Bld) [Entitic vol] 10.1 fL 9.0 - 12.7 fL [facility] Platelets (Bld) [#/Vol] 233 10*3/uL 140 - 440 10*3/uL [facility] RBC (Bld) [#/Vol] 3.95 10*6/uL Low 4.40 - 5.9 0 10*6/uL [facility] WBC (Bld) [#/Vol] 7.3 10*3/uL 3.6 - 10.7 10*3/uL [facility] CBC WITH AUTO DIFFERENTIALon 12-03-2024 Basophils (Bld) [#/Vol] 0.1 10*3/uL Normal 0.0-0.2 [facility] Comment on above: Performed By: #### L [id number] ####Jewelry Finisher: JACK ORTIZ ([id number])[facility])[address] [place] [address] Basophils/100 WBC (Bld) 1.2 % Normal 0.0-2.0 [facility] Comment on above: Performed By: #### L [id number] ####Jewelry Finisher: JACK ORTIZ ([id number])[facility] ([facility])[address] [place] [address] [place] Eosinophils (Bld) [#/Vol] 0.3 10*3/uL Normal 0.0-0.5 [facility] Comment on above: Performed By: #### L [id number] ####Jewelry Finisher: JACK ORTIZ ([id number])[facility] ([facility])[address] [place] [address] [place] Eosinophils/100 WBC (Bld) 4.7 % Normal 0.0-6.0 [facility] Comment on above: Performed By: #### L [id number] ####Jewelry Finisher: JACK ORTIZ ([id number])[address] Erythrocyte distribution width (RBC) [Ratio] 22.0 % High 11.5-15.0 [facility] Comment on above: Performed By: #### L [id number] ####Jewelry Finisher: JACK ORTIZ ([id number])[address] Hematocrit (Bld) [Volume fraction] 30.2 % Low 40.0-52.0 [facility] Comment on above: Performed By: #### L [id number] ####Jewelry Finisher: JACK ORTIZ ([id number])[address] Hemoglobin (Bld) [Mass/Vol] 9.1 g/dL Low 13.0-18.0 [facility] Comment on above: Performed By: #### L [id number] ####Jewelry Finisher: JACK ORTIZ ([id number])[address] IMMATURE GRANS % 0.6 % Normal 0.0-2.0 [facility] Comment on above: Performed By: #### L [id number] ####Jewelry Finisher: JACK ORTIZ ([id number])[address] IMMATURE GRANS ABSOLUTE 0.0 10*3/uL Normal <0.1 [facility] Comment on above: Performed By: #### L [id number] ####Jewelry Finisher: JACK ORTIZ ([id number])[address] Lymphocytes (Bld) [#/Vol] 1.5 10*3/uL Normal 1.0-4.3 [facility] Comment on above: Performed By: #### L [id number] ####Jewelry Finisher: JACK ORTIZ ([id number])[facility])[address] [place] [address] Lymphocytes/100 WBC (Bld) 21.1 % Normal 15.0-45.0 [facility] Comment on above: Performed By: #### L [id number] ####Jewelry Finisher: JACK ORTIZ ([id number])[facility])[address] [place] [address] MCH (RBC) [Entitic mass] 23.0 pg Low 26.0-34.0 [facility] Comment on above: Performed By: #### L [id number] ####Jewelry Finisher: JACK ORTIZ ([id number])[facility])[address] [place] [address] MCHC 30.1 % Low 30.5-36.0 [facility] Comment on above: Performed By: #### L [id number] ####Jewelry Finisher: JACK ORTIZ ([id number])[facility])[address] [place] [address] MCV (RBC) [Entitic vol] 76.5 fL Low 77.0-99.0 [facility] Comment on above: Performed By: #### L [id number] ####Jewelry Finisher: JACK ORTIZ ([id number])[facility])[address] [place] [address] Monocytes (Bld) [#/Vol] 0.5 10*3/uL Normal 0.0-0.9 [facility] Comment on above: Performed By: #### L [id number] ####Jewelry Finisher: JACK ORTIZ ([id number])[facility])[address] [place] [address] Monocytes/100 WBC (Bld) 6.3 % Normal 5.0-13.0 [facility] Comment on above: Performed By: #### L [id number] ####Jewelry Finisher: JACK ORTIZ ([id number])[facility])[address] [place] [address] NEUTROPHILS ABSOLUTE 4.8 10*3/uL Normal 1.8-7.5 [facility] Comment on above: Performed By: #### L [id number] ####Jewelry Finisher: JACK ORTIZ ([id number])[facility] ([facility])[address] [place] [address] Neutrophils/100 WBC (Bld) 66.1 % Normal 38.0-82.0 [facility] Comment on above: Performed By: #### L [id number] ####Jewelry Finisher: JACK ORTIZ ([phone])[facility] ([facility])[address] [place] [address] NRBC 0.0 /100 WBCs Normal 0.0-2.0 [facility] Comment on above: Performed By: #### L [id number] ####Jewelry Finisher: JACK ORTIZ ([id number])[facility] ([facility])[address] [place] [address] Platelet mean volume (Bld) [Entitic vol] 10.1 fL Normal 9.0-12.7 [facility] Comment on above: Performed By: #### L [id number] ####Jewelry Finisher: JACK ORTIZ ([id number])[facility] ([facility])[address] [place] [address] [place] Platelets (Bld) [#/Vol] 233 10*3/uL Normal 140-440 [facility] Comment on above: Performed By: #### L [id number] ####Jewelry Finisher: JACK ORTIZ ([id number])[facility] ([facility])[address] [place] [address] RBC (Bld) [#/Vol] 3.95 10*6/uL Low 4.40-5.90 [facility] Comment on above: Performed By: #### L [id number] ####Jewelry Finisher: JACK ORTIZ ([id number])[facility] ([facility])[address] [place] [address] [place] WBC (Bld) [#/Vol] 7.3 10*3/uL Normal 3.6-10.7 [facility] Comment on above: Performed By: #### L [id number] ####Jewelry Finisher: JACK ORTIZ ([id number])[facility])[address] [place] [address] COMPREHENSIVE METABOLIC PANE Eduardo 12-03-2024 Albumin [Mass/Vol] 2.6 g/dL Low 3.5-5.0 [facility] Comment on above: Performed By: #### L [id number] ####Jewelry Finisher: JACK ORTIZ ([id number])[facility] ([facility])[address] [place] [address] ALP [Catalytic activity/Vol] 89 U/L Normal 40-150 [facility] Comment on above: Performed By: #### L AB17 ####Jewelry Finisher: JACK ORTIZ ([id number])[facility])[address] [place] [address] ALT [Catalytic activity/Vol] 12 U/L Normal <40 [facility] Comment on above: Performed By: #### L AB17 ####Jewelry Finisher: JACK ORTIZ ([id number])[facility] ([facility])[address] [place] [address] Anion gap [Moles/Vol] 9 mmol/L Normal 3-13 [facility] Comment on above: Performed By: #### L AB17 ####Jewelry Finisher: JACK ORTIZ ([id number])[facility])[address] [place] [address] AST [Catalytic activity/Vol] 25 U/L Normal <34 [facility] Comment on above: Performed By: #### L AB17 ####Jewelry Finisher: JACK ORTIZ ([id number])[facility])[address] [place] [address] Bilirubin [Mass/Vol] 0.3 mg/dL Normal <1.2 [facility] Comment on above: Performed By: #### L AB17 ####Jewelry Finisher: JACK ORTIZ ([id number])[facility] ([facility])[address] [place] [address] Calcium [Mass/Vol] 8.0 mg/dL Low 8.4-10.2 [facility] Comment on above: Performed By: #### L AB17 ####Jewelry Finisher: JACK ORTIZ ([id number])[facility])[address] [place] [address] Chloride [Moles/Vol] 101 mmol/L Normal 98-107 [facility] Comment on above: Performed By: #### L AB17 ####Jewelry Finisher: JACK ORTIZ ([id number])[facility] ([facility])[address] [place] [address] CO2 [Moles/Vol] 24 mmol/L Normal 22-29 [facility] Comment on above: Performed By: #### L AB17 ####Jewelry Finisher: JACK ORTIZ ([id number])[facility] ([facility])[address] [place] [address] Creatinine [Mass/Vol] 0.74 mg/dL Normal 0.72-1.25 [facility] Comment on above: Performed By: #### L AB17 ####Jewelry Finisher: JACK ORTIZ ([id number])[facility] ([facility])[address] [place] [address] GLOMERULAR FILTRATION RATE ML/MIN/1.73 SQ M.PREDICTED >90.0 Normal >60.0 [facility] Comment on above: Result Comment: Calc ulation based on the Chronic Kidney Disease Epidemiology Collaboration (CKD-EPI) equation refit without adjustment for race Performed By: #### L AB17 ####Jewelry Finisher: JACK ORTIZ ([id number])[facility] ([facility])[address] [place] [address] [place] Glucose [Mass/Vol] 101 mg/dL High 74-100 [facility] Comment on above: Performed By: #### L AB17 ####Jewelry Finisher: JACK ORTIZ ([id number])[facility] ([facility])[address] [place] [address] Potassium [Moles/Vol] 4.4 mmol/L Normal 3.5-5.1 [facility] Comment on above: Result Comment: [facility] potassium values may be up to 0.5 mmol/L lower than serum values. Performed By: #### L AB17 ####Jewelry Finisher: JACK ORTIZ ([id number])[facility] ([facility])[address] [place] [address] Protein [Mass/Vol] 5.7 g/dL Low 6.4-8.3 [facility] Comment on above: Performed By: #### L AB17 ####Jewelry Finisher: JACK ORTIZ ([id number])[facility])[address] [place] [address] Sodium [Moles/Vol] 134 mmol/L Low 136-145 [facility] Comment on above: Performed By: #### L AB17 ####Jewelry Finisher: JACK ORTIZ ([id number])[facility])[address] [place] [address] Urea nitrogen [Mass/Vol] 15 mg/dL Normal 8-21 [facility] Comment on above: Performed By: #### L AB17 ####Jewelry Finisher: JACK ORTIZ ([id number])[facility])[address] [place] [address] Albumin [Mass/Vol] 2.7 g/dL Low 3.5-5.0 [facility] Comment on above: Performed By: #### L AB68, LAB17 ####Jewelry Finisher: JACK ORTIZ ([id number])[facility])[address] [place] [address] [place] ALP [Catalytic activity/Vol] 92 U/L Normal 40-150 [facility] Comment on above: Performed By: #### L AB68, LAB17 ####Jewelry Finisher: JACK ORTIZ ([id number])[facility])[address] [place] [address] ALT [Catalytic activity/Vol] 11 U/L Normal <40 [facility] Comment on above: Performed By: #### L AB68, LAB17 ####Jewelry Finisher: JACK ORTIZ ([id number])[facility])[address] [place] [address] Anion gap [Moles/Vol] 8 mmol/L Normal 3-13 [facility] Comment on above: Performed By: #### L AB68, LAB17 ####Jewelry Finisher: JACK ORTIZ ([id number])[facility] ([facility])[address] [place] [address] AST [Catalytic activity/Vol] 31 U/L Normal <34 [facility] Comment on above: Performed By: #### L AB68, LAB17 ####Jewelry Finisher: JACK ORTIZ ([id number])[facility] ([facility])[address] [place] [address] Bilirubin [Mass/Vol] 0.4 mg/dL Normal <1.2 [facility] Comment on above: Performed By: #### L ABNara, LAB17 ####Jewelry Finisher: JACK ORTIZ ([id number])[facility] ([facility])[address] [place] [address] Calcium [Mass/Vol] 7.8 mg/dL Low 8.4-10.2 [facility] Comment on above: Performed By: #### L AB68, LAB17 ####Jewelry Finisher: JACK ORTIZ ([id number])[facility] ([facility])[address] [place] [address] [place] Chloride [Moles/Vol] 100 mmol/L Normal 98-107 [facility] Comment on above: Performed By: #### L AB68, LAB17 ####Jewelry Finisher: JACK ORTIZ ([id number])[facility] ([facility])[address] [place] [address] [place] CO2 [Moles/Vol] 23 mmol/L Normal 22-29 [facility] Comment on above: Performed By: #### L AB68, LAB17 ####Jewelry Finisher: JACK ORTIZ ([id number])[facility] ([facility])[address] [place] [address] [place] Creatinine [Mass/Vol] 0.67 mg/dL Low 0.72-1.25 [facility] Comment on above: Performed By: #### Abdelrahman RESENDEZ, LAB17 ####Jewelry Finisher: JACK ORTIZ ([id number])[facility])[address] [place] [address] GLOMERULAR FILTRATION RATE ML/MIN/1.73 SQ M.PREDICTED >90.0 Normal >60.0 [facility] Comment on above: Result Comment: Calc ulation based on the Chronic Kidney Disease Epidemiology Collaboration (CKD-EPI) equation refit without adjustment for race Performed By: #### Abdelrahman RESENDEZ, LAB17 ####Jewelry Finisher: JACK ORTIZ ([id number])[facility])[address] [place] [address] Glucose [Mass/Vol] 83 mg/dL Normal 74-100 [facility] Comment on above: Performed By: #### Abdelrahman RESENDEZ, LAB17 ####Jewelry Finisher: JACK ORTIZ ([id number])[facility])[address] [place] [address] Potassium [Moles/Vol] 3.9 mmol/L Normal 3.5-5.1 [facility] Comment on above: Result Comment: [facility] potassium values may be up to 0.5 mmol/L lower than serum values. Performed By: #### Abdelrahman RESENDEZ, LAB17 ####Jewelry Finisher: JACK ORTIZ ([id number])[facility])[address] [place] [address] Protein [Mass/Vol] 5.9 g/dL Low 6.4-8.3 [facility] Comment on above: Performed By: #### L DIPTI, LAB17 ####Jewelry Finisher: JACK ORTIZ ([id number])[facility])[address] [place] [address] Sodium [Moles/Vol] 131 mmol/L Low 136-145 [facility] Comment on above: Performed By: #### Abdelrahman RESENDEZ, LAB17 ####Jewelry Finisher: AJCK [id number])[facility])[address] [place] [address] Urea nitrogen [Mass/Vol] 14 mg/dL Normal 8-21 [facility] Comment on above: Performed By: #### L AB68, LAB17 ####Jewelry Finisher: JACK ORTIZ ([id number])[facility] ([facility])[address] [place] [address] Albumin [Mass/Vol] 2.7 g/dL Low 3.5-5.0 [facility] Comment on above: Performed By: #### L AB103, LAB17, [id number] ####Jewelry Finisher: JACK ORTIZ ([id number])[facility] ([facility])[address] [place] [address] ALP [Catalytic activity/Vol] 89 U/L Normal 40-150 [facility] Comment on above: Performed By: #### L AB103, LAB17, [id number] ####Jewelry Finisher: JACK ORTIZ ([id number])[facility])[address] [place] [address] [place] ALT [Catalytic activity/Vol] 10 U/L Normal <40 [facility] Comment on above: Performed By: #### L AB103, LAB17, [id number] ####Jewelry Finisher: JACK ORTIZ ([id number])[facility] ([facility])[address] [place] [address] Anion gap [Moles/Vol] 6 mmol/L Normal 3-13 [facility] Comment on above: Performed By: #### L AB103, LAB17, [id number] ####Jewelry Finisher: JACK ORTIZ ([id number])[facility] ([facility])[address] [place] [address] [place] AST [Catalytic activity/Vol] 23 U/L Normal <34 [facility] Comment on above: Performed By: #### L AB103, LAB17, [id number] ####Jewelry Finisher: JACK ORTIZ ([id number])[facility] ([facility])[address] [place] [address] Bilirubin [Mass/Vol] 0.3 mg/dL Normal <1.2 [facility] Comment on above: Performed By: #### Abdelrahman CASON, LAB17, [id number] ####Jewelry Finisher: JACK ORTIZ ([id number])[facility])[address] [place] [address] Calcium [Mass/Vol] 8.1 mg/dL Low 8.4-10.2 [facility] Comment on above: Performed By: #### Abdelrahman CASON, LAB17, [id number] ####Jewelry Finisher: JACK ORTIZ ([id number])[facility])[address] [place] [address] Chloride [Moles/Vol] 98 mmol/L Normal 98-107 [facility] Comment on above: Performed By: #### Abdelrahman CASON, LAB17, [id number] ####Jewelry Finisher: JACK ORTIZ ([id number])[facility] ([facility])[address] [place] [address] CO2 [Moles/Vol] 25 mmol/L Normal 22-29 [facility] Comment on above: Performed By: #### Abdelrahman CASON, LAB17, [id number] ####Jewelry Finisher: JACK ORTIZ ([id number])[facility])[address] [place] [address] Creatinine [Mass/Vol] 0.66 mg/dL Low 0.72-1.25 [facility] Comment on above: Performed By: #### Abdelrahman CASON, LAB17, [id number] ####Jewelry Finisher: JACK ORTIZ ([id number])[facility])[address] [place] [address] GLOMERULAR FILTRATION RATE ML/MIN/1.73 SQ M.PREDICTED >90.0 Normal >60.0 [facility] Comment on above: Result Comment: Calc ulation based on the Chronic Kidney Disease Epidemiology Collaboration (CKD-EPI) equation refit without adjustment for race Performed By: #### L ABTho, LAB17, [id number] ####Jewelry Finisher: JACK [id number])[facility] ([facility])[address] [place] [address] Glucose [Mass/Vol] 94 mg/dL Normal 74-100 [facility] Comment on above: Performed By: #### Abdelrahman CASON, LAB17, [id number] ####Jewelry Finisher: JACK ORTIZ ([id number])[facility] ([facility])[address] [place] [address] Potassium [Moles/Vol] 4.0 mmol/L Normal 3.5-5.1 [facility] Comment on above: Result Comment: [facility] potassium values may be up to 0.5 mmol/L lower than serum values. Performed By: #### Abdelrahman CASON, LAB17, [id number] ####Jewelry Finisher: JACK ORTIZ ([phone])[facility])[address] [place] [address] Protein [Mass/Vol] 5.8 g/dL Low 6.4-8.3 [facility] Comment on above: Performed By: #### Abdelrahman CASON, LAB17, [id number] ####Jewelry Finisher: JACK ORTIZ ([id number])[facility] ([facility])[address] [place] [address] Sodium [Moles/Vol] 129 mmol/L Low 136-145 [facility] Comment on above: Performed By: #### Abdelrahman MOSES103, LAB17, [id number] ####Jewelry Finisher: JACK ORTIZ ([id number])[facility])[address] [place] [address] Urea nitrogen [Mass/Vol] 15 mg/dL Normal 8-21 [facility] Comment on above: Performed By: #### L AB103, LAB17, [id number] ####Jewelry Finisher: JACK ORTIZ ([id number])[facility])[address] [place] [address] Comprehensive metabolic 1998 panelon 12-03-2024 Albumin [Mass/Vol] 2.6 g/dL Low 3.5 - 5.0 g/dL [facility] ALP [Catalytic activity/Vol] 89 U/L 40 - 150 U/L [facility] ALT [Catalytic activity/Vol] 12 U/L NINF - 40 U/L [facility] Anion gap [Moles/Vol] 9 mmol/L 3 - 13 mmol/L [facility] AST [Catalytic activity/Vol] 25 U/L NINF - 34 U/L [facility] Bilirubin [Mass/Vol] 0.3 mg/dL NINF - 1.2 mg/dL [facility] Calcium [Mass/Vol] 8 mg/dL Low 8.4 - 10. 2 mg/dL [facility] Chloride [Moles/Vol] 101 mmol/L 98 - 10 7 mmol/L [facility] CO2 [Moles/Vol] 24 mmol/L 22 - 29 mmol/L [facility] Creatinine [Mass/Vol] 0.74 mg/dL 0.72 - 1.25 mg/dL [facility] GFR/1.73 sq M.predicted (S/P/Bld) [Vol rate/Area] - PINF [facility] Comment on above: Calculation based on the Chronic Kidney Disease Epidemiology Collaboration (CKD-EPI) equation refit without adjustment for race Glucose [Mass/Vol] 101 mg/dL High 74 - 100 mg/dL [facility] Interpretation and review of laboratory results Abnormal [facility] Potassium [Moles/Vol] 4.4 mmol/L 3.5 - 5.1 mmol/L [facility] Comment on above: Plasma potassium ema ues may be up to 0.5 mmol/L lower than serum values. Protein [Mass/Vol] 5.7 g/dL Low 6.4 - 8.3 g/dL [facility] Sodium [Moles/Vol] 134 mmol/L Low 136 - 145 mmol/L [facility] Urea nitrogen [Mass/Vol] 15 mg/dL 8 - 21 mg/dL [facility] Albumin [Mass/Vol] 2.7 g/dL Low 3.5 - 5.0 g/dL [facility] ALP [Catalytic activity/Vol] 92 U/L 40 - 150 U/L [facility] ALT [Catalytic activity/Vol] 11 U/L NINF - 40 U/L [facility] Anion gap [Moles/Vol] 8 mmol/L 3 - 13 mmol/L [facility] AST [Catalytic activity/Vol] 31 U/L NINF - 34 U/L [facility] Bilirubin [Mass/Vol] 0.4 mg/dL NINF - 1.2 mg/dL [facility] Calcium [Mass/Vol] 7.8 mg/dL Low 8.4 - 10. 2 mg/dL [facility] Chloride [Moles/Vol] 100 mmol/L 98 - 10 7 mmol/L [facility] CO2 [Moles/Vol] 23 mmol/L 22 - 29 mmol/L [facility] Creatinine [Mass/Vol] 0.67 mg/dL Low 0.72 - 1.25 mg/dL [facility] GFR/1.73 sq M.predicted (S/P/Bld) [Vol rate/Area] - PINF [facility] Comment on above: Calculation based on the Chronic Kidney Disease Epidemiology Collaboration (CKD-EPI) equation refit without adjustment for race Glucose [Mass/Vol] 83 mg/dL 74 - 100 mg/dL [facility] Interpretation and review of laboratory results Abnormal [facility] Potassium [Moles/Vol] 3.9 mmol/L 3.5 - 5.1 mmol/L [facility] Comment on above: Plasma potassium ema ues may be up to 0.5 mmol/L lower than serum values. Protein [Mass/Vol] 5.9 g/dL Low 6.4 - 8.3 g/dL [facility] Sodium [Moles/Vol] 131 mmol/L Low 136 - 145 mmol/L [facility] Urea nitrogen [Mass/Vol] 14 mg/dL 8 - 21 mg/dL [facility] Albumin [Mass/Vol] 2.7 g/dL Low 3.5 - 5.0 g/dL [facility] ALP [Catalytic activity/Vol] 89 U/L 40 - 150 U/L [facility] ALT [Catalytic activity/Vol] 10 U/L NINF - 40 U/L [facility] Anion gap [Moles/Vol] 6 mmol/L 3 - 13 mmol/L [facility] AST [Catalytic activity/Vol] 23 U/L NINF - 34 U/L [facility] Bilirubin [Mass/Vol] 0.3 mg/dL NINF - 1.2 mg/dL [facility] Calcium [Mass/Vol] 8.1 mg/dL Low 8.4 - 10. 2 mg/dL [facility] Chloride [Moles/Vol] 98 mmol/L 98 - 10 7 mmol/L [facility] CO2 [Moles/Vol] 25 mmol/L 22 - 29 mmol/L [facility] Creatinine [Mass/Vol] 0.66 mg/dL Low 0.72 - 1.25 mg/dL [facility] GFR/1.73 sq M.predicted (S/P/Bld) [Vol rate/Area] - PINF [facility] Comment on above: Calculation based on the Chronic Kidney Disease Epidemiology Collaboration (CKD-EPI) equation refit without adjustment for race Glucose [Mass/Vol] 94 mg/dL 74 - 100 mg/dL [facility] Interpretation and review of laboratory results Abnormal [facility] Potassium [Moles/Vol] 4 mmol/L 3.5 - 5.1 mmol/L [facility] Comment on above: Plasma potassium ema ues may be up to 0.5 mmol/L lower than serum values. Protein [Mass/Vol] 5.8 g/dL Low 6.4 - 8.3 g/dL [facility] Sodium [Moles/Vol] 129 mmol/L Low 136 - 145 mmol/L [facility] Urea nitrogen [Mass/Vol] 15 mg/dL 8 - 21 mg/dL [facility] FERRITINon 12-03-2024 Ferritin [Mass/Vol] 39 ng/mL Normal 22-275 [facility] Comment on above: Result Comment: PAGE Menezes COMMENTS:Ferritin levels below 10 ng/mL have been reported as indicative of iron deficiency anemia. Performed By: #### L AB68, LAB17 ####Jewelry Finisher: JACK ORTIZ ([id number])[address] Ferritin [Mass/Vol]on 2024 Interpretation and review of laboratory results Normal [facility] Ferritin levels belo w 10 ng/mL have been reported as indicative of iron deficiency anemia. [facility] H. PYLORI STOOL ANTIGENon H. PYLORI STOOL ANTIGEN H. PYLORI STOOL AG Reference Not Detected Not Detected ORDER COMMENTS: Methodology: Enzyme Immunoassay Normal [facility] Comment on above: Performed By: #### L [id number] ####Jewelry Finisher: JACK ORTIZ ([id number])[facility])[address] [place] [address] IRON AND TIBCon 12-03-2024 IRON BINDING CAPACITY 373 ug/dL Normal 250-450 [facility] Comment on above: Performed By: #### L [id number] ####Jewelry Finisher: SALTY PRESCOTT ([id number])[facility])[address] IRON SATURATION 6.4 % Low 20.0-50.0 [facility] Comment on above: Performed By: #### L [id number] ####Jewelry Finisher: SALTY KENYON ([id number])[facility] ([facility])[address] IRON, TOTAL 24 ug/dL Low 65-175 [facility] Comment on above: Result Comment: TCSi gnificant interference from hemolysis. Result integrity compromised. Interpret with caution. Performed By: #### L [id number] ####Jewelry Finisher: SALTY PRESCOTT ([id number])[facility] ([facility])[address] [place] [address] Iron and Iron binding capaci ty panelon 12-03-2024 Interpretation and review of laboratory results Abnormal [facility] Iron [Mass/Vol] 24 ug/dL Low 65 - 175 ug/dL [facility] Comment on above: TC Significant interference from hemolysis. Result integrity compromised. Interpret with caution. Iron binding capacity [Mass/Vol] 373 ug/dL 250 - 450 ug/dL [facility] Iron saturation [Mass fraction] 6.4 % Low 20.0 - 50.0 % [facility] - Chemistry and C hemistry - challengeon 12-03-2024 Ferritin [Mass/Vol] 39 ng/mL 22 - 275 ng/mL [facility] Magnesium [Mass/Vol] 1.7 mg/dL 1.6 - 2 .6 mg/dL [facility] MAGNESIUMon 12-03-2024 Magnesium [Mass/Vol] 1.7 mg/dL Normal 1.6-2.6 [facility] Comment on above: Result Comment: PAGE Menezes COMMENTS:Higher values can be expected in females during menses. Performed By: #### L AB103, LAB17, [id number] ####Jewelry Finisher: JACK ORTIZ ([id number])[facility] ([id number] Magnesium [Mass/Vol]on 12-03 Higher values can be expected in females during menses. [facility] No Panel Informationon 12-03 Interpretation and review of laboratory results Normal [facility] Nursing Noteon 12-03-2024 Nursing Note Normal [facility] Nursing Note Normal [facility] Op Noteon 12-03-2024 Op Note Normal [facility] PHOSPHORUSon 12-03-2024 Phosphate [Mass/Vol] 4.0 mg/dL Normal 2.3-4.7 [facility] Comment on above: Performed By: #### L AB103, LAB17, [id number] ####Jewelry Finisher: JACK ORTIZ ([id number])[facility])[address] [place] [address] Phosphate [Moles/Vol]on 11-16 Phosphate [Mass/Vol] 4 mg/dL 2.3 - 4 .7 mg/dL [facility] Progress Noteon 12-03-2024 Progress Note Normal [facility] 30on 12-02-2024 30 Seen in ICU. Doing fine . Less agitated . DW patient and mother about EGD in am due to history of PUD and abnormal CT. Alcohol cessation discussed. Continue PPI. More recommendation after EGD is done tomorrow Normal [facility] BUPRENORPHINE SCREENon 12-02 BUPRENORPHINE SCREEN-BUPR Positive Normal Negative [facility] Comment on above: Result Comment: PAGE Menezes COMMENTS:Buprenorphine (Suboxone) has been screened for by Immunoassay at 5 ng/mL threshold. POSITIVE results are not confirmed by a more specific alternative method unless requested. If confirmation is needed, request confirmation under separate order.NOTE: These results are for medical treatment only. Analysis performed using non-forensic procedures. Performed By: #### L [id number], [id number] ####Jewelry Finisher: JACK ORTIZ ([id number])[facility] ([facility])[address] [place] [address] CBC W Auto Differential pane l (Bld)Ordered By: Raul Washington on 12-02-2024 Basophils (Bld) [#/Vol] 0.1 10*3/uL 0.0 - 0.2 10*3/uL [facility] Basophils/100 WBC (Bld) 1.2 % 0.0 - 2.0 % [facility] Eosinophils (Bld) [#/Vol] 0.2 10*3/uL 0.0 - 0.5 10*3/uL [facility] Eosinophils/100 WBC (Bld) 1.9 % 0.0 - 6.0 % [facility] Erythrocyte distribution width (RBC) [Ratio] 22.2 % High 11.5 - 15.0 % [facility] Hematocrit (Bld) [Volume fraction] 31.1 % Low 40.0 - 52.0 % [facility] Hemoglobin (Bld) [Mass/Vol] 9.5 g/dL Low 13.0 - 18.0 g/dL [facility] Immature granulocytes (Bld) [#/Vol] 0.1 10*3/uL High NINF - 0.1 10*3/uL [facility] Immature granulocytes/100 WBC (Bld) 0.6 % 0.0 - 2.0 % [facility] Interpretation and review of laboratory results Abnormal [facility] Lymphocytes (Bld) [#/Vol] 1.8 10*3/uL 1.0 - 4.3 10*3/uL [facility] Lymphocytes/100 WBC (Bld) 23.8 % 15.0 - 45.0 % [facility] MCH (RBC) [Entitic mass] 22.9 pg Low 26.0 - 34.0 pg [facility] MCHC (RBC) [Mass/Vol] 30.5 % 30.5 - 36.0 % [facility] MCV (RBC) [Entitic vol] 75.1 fL Low 77.0 - 99.0 fL [facility] Monocytes (Bld) [#/Vol] 0.4 10*3/uL 0.0 - 0.9 10*3/uL [facility] Monocytes/100 WBC (Bld) 5.7 % 5.0 - 13.0 % [facility] Neutrophils (Bld) [#/Vol] 5.2 10*3/uL 1.8 - 7.5 10*3/uL [facility] Neutrophils/100 WBC (Bld) 66.8 % 38.0 - 82.0 % [facility] Nucleated RBC/100 WBC (Bld) [Ratio] 0 % [facility] Platelet mean volume (Bld) [Entitic vol] 10.1 fL 9.0 - 12.7 fL [facility] Platelets (Bld) [#/Vol] 195 10*3/uL 140 - 440 10*3/uL [facility] RBC (Bld) [#/Vol] 4.14 10*6/uL Low 4.40 - 5.9 0 10*6/uL [facility] WBC (Bld) [#/Vol] 7.7 10*3/uL 3.6 - 10.7 10*3/uL [facility] CBC WITH AUTO DIFFERENTIALon 12-02-2024 Basophils (Bld) [#/Vol] 0.1 10*3/uL Normal 0.0-0.2 [facility] Comment on above: Performed By: #### L [id number] ####Jewelry Finisher: JACK ORTIZ ([id number])[facility])[address] [place] [address] Basophils/100 WBC (Bld) 1.2 % Normal 0.0-2.0 [facility] Comment on above: Performed By: #### L [id number] ####Jewelry Finisher: JACK ORTIZ ([id number])[facility])[address] [place] [address] Eosinophils (Bld) [#/Vol] 0.2 10*3/uL Normal 0.0-0.5 [facility] Comment on above: Performed By: #### L [id number] ####Jewelry Finisher: JACK ORTIZ ([id number])[facility])[address] [place] [address] Eosinophils/100 WBC (Bld) 1.9 % Normal 0.0-6.0 [facility] Comment on above: Performed By: #### L [id number] ####Jewelry Finisher: JACK ORTIZ ([id number])[facility])[address] [place] [address] Erythrocyte distribution width (RBC) [Ratio] 22.2 % High 11.5-15.0 [facility] Comment on above: Performed By: #### L [id number] ####Jewelry Finisher: JACK ORTIZ ([id number])[facility])[address] [place] [address] Hematocrit (Bld) [Volume fraction] 31.1 % Low 40.0-52.0 [facility] Comment on above: Performed By: #### L [id number] ####Jewelry Finisher: JACK ORTIZ ([id number])[facility])[address] [place] [address] Hemoglobin (Bld) [Mass/Vol] 9.5 g/dL Low 13.0-18.0 [facility] Comment on above: Performed By: #### L [id number] ####Jewelry Finisher: JACK ORTIZ ([id number])[facility])[address] [place] [address] IMMATURE GRANS % 0.6 % Normal 0.0-2.0 [facility] Comment on above: Performed By: #### L [id number] ####Jewelry Finisher: JACK ORTIZ ([id number])[facility])[address] [place] [address] IMMATURE GRANS ABSOLUTE 0.1 10*3/uL High <0.1 [facility] Comment on above: Performed By: #### L [id number] ####Jewelry Finisher: JACK ORTIZ ([id number])[facility])[address] [place] [address] Lymphocytes (Bld) [#/Vol] 1.8 10*3/uL Normal 1.0-4.3 [facility] Comment on above: Performed By: #### L [id number] ####Jewelry Finisher: JACK ORTIZ ([id number])[facility])[address] [place] [address] Lymphocytes/100 WBC (Bld) 23.8 % Normal 15.0-45.0 [facility] Comment on above: Performed By: #### L [id number] ####Jewelry Finisher: JACK ORTIZ ([id number])[facility] [place] [address] MCH (RBC) [Entitic mass] 22.9 pg Low 26.0-34.0 [facility] Comment on above: Performed By: #### L [id number] ####Jewelry Finisher: JACK ORTIZ ([id number])[facility])[address] [place] [address] MCHC 30.5 % Normal 30.5-36.0 [facility] Comment on above: Performed By: #### L [id number] ####Jewelry Finisher: JACK ORTIZ ([id number])[facility])[address] [place] [address] MCV (RBC) [Entitic vol] 75.1 fL Low 77.0-99.0 [facility] Comment on above: Performed By: #### L [id number] ####Jewelry Finisher: JACK ORTIZ ([id number])[facility])[address] [place] [address] Monocytes (Bld) [#/Vol] 0.4 10*3/uL Normal 0.0-0.9 [facility] Comment on above: Performed By: #### L [id number] ####Jewelry Finisher: JACK ORTIZ ([id number])[facility])[address] [place] [address] Monocytes/100 WBC (Bld) 5.7 % Normal 5.0-13.0 [facility] Comment on above: Performed By: #### L [id number] ####Jewelry Finisher: JACK ORTIZ ([id number])[facility])[address] [place] [address] NEUTROPHILS ABSOLUTE 5.2 10*3/uL Normal 1.8-7.5 [facility] Comment on above: Performed By: #### L [id number] ####Jewelry Finisher: JACK ORTIZ ([id number])[facility])[address] [place] [address] Neutrophils/100 WBC (Bld) 66.8 % Normal 38.0-82.0 [facility] Comment on above: Performed By: #### L [id number] ####Jewelry Finisher: JACK ORTIZ ([id number])[facility])[address] [place] [address] NRBC 0.0 /100 WBCs Normal 0.0-2.0 [facility] Comment on above: Performed By: #### L [id number] ####Jewelry Finisher: JACK ORTIZ ([id number])[facility] ([facility])[address] [place] [address] Platelet mean volume (Bld) [Entitic vol] 10.1 fL Normal 9.0-12.7 [facility] Comment on above: Performed By: #### L [id number] ####Jewelry Finisher: JACK ORTIZ ([id number])[facility] ([facility])[address] [place] [address] Platelets (Bld) [#/Vol] 195 10*3/uL Normal 140-440 [facility] Comment on above: Performed By: #### L [id number] ####Jewelry Finisher: JACK ORTIZ ([id number])[facility] ([facility])[address] [place] [address] RBC (Bld) [#/Vol] 4.14 10*6/uL Low 4.40-5.90 [facility] Comment on above: Performed By: #### L [id number] ####Jewelry Finisher: JACK ORTIZ ([id number])[facility] ([facility])[address] [place] [address] WBC (Bld) [#/Vol] 7.7 10*3/uL Normal 3.6-10.7 [facility] Comment on above: Performed By: #### L [id number] ####Jewelry Finisher: JACK ORTIZ ([id number])[facility] ([facility])[address] [place] [address] COMPREHENSIVE METABOLIC PANE Eduardo 12-02-2024 Albumin [Mass/Vol] 2.8 g/dL Low 3.5-5.0 [facility] Comment on above: Performed By: #### L AB129, LAB17, LAB61 ####Jewelry Finisher: JAKC ORTIZ ([id number])[facility] ([facility])[address] [place] [address] ALP [Catalytic activity/Vol] 100 U/L Normal 40-150 [facility] Comment on above: Performed By: #### Abdelrahman AB129, LAB17, LAB61 ####Jewelry Finisher: JACK ORTIZ ([id number])[facility] ([facility])[address] [place] [address] ALT [Catalytic activity/Vol] 15 U/L Normal <40 [facility] Comment on above: Performed By: #### Abdelrahman MOSES129, LAB17, LAB61 ####Jewelry Finisher: JACK ORTIZ ([id number])[facility] ([facility])[address] [place] [address] Anion gap [Moles/Vol] 11 mmol/L Normal 3-13 [facility] Comment on above: Performed By: #### Abdelrahman AB129, LAB17, LAB61 ####Jewelry Finisher: JACK ORTIZ ([id number])[facility] ([facility])[address] [place] [address] AST [Catalytic activity/Vol] 30 U/L Normal <34 [facility] Comment on above: Performed By: #### Abdelrahman AB129, LAB17, LAB61 ####Jewelry Finisher: JACK ORTIZ ([id number])[facility] ([facility])[address] [place] [address] Bilirubin [Mass/Vol] 0.4 mg/dL Normal <1.2 [facility] Comment on above: Performed By: #### Abdelrahman AB129, LAB17, LAB61 ####Jewelry Finisher: JACK ORTIZ ([id number])[facility])[address] [place] [address] Calcium [Mass/Vol] 8.1 mg/dL Low 8.4-10.2 [facility] Comment on above: Performed By: #### Abdelrahman AB129, LAB17, LAB61 ####Jewelry Finisher: JACK ORTIZ ([id number])[facility] ([facility])[address] [place] [address] [place] Chloride [Moles/Vol] 97 mmol/L Low 98-107 [facility] Comment on above: Performed By: #### Abdelrahman AB129, LAB17, LAB61 ####Jewelry Finisher: JACK ORTIZ ([id number])[facility] ([facility])[address] [place] [address] CO2 [Moles/Vol] 25 mmol/L Normal 22-29 [facility] Comment on above: Performed By: #### Abdelrahman CARBAJAL, LAB17, LAB61 ####Jewelry Finisher: JACK ORTIZ ([id number])[facility])[address] [place] [address] Creatinine [Mass/Vol] 0.71 mg/dL Low 0.72-1.25 [facility] Comment on above: Performed By: #### Abdelrahman CARBAJAL, LAB17, LAB61 ####Jewelry Finisher: JACK ORTIZ ([id number])[facility] ([facility])[address] [place] [address] GLOMERULAR FILTRATION RATE ML/MIN/1.73 SQ M.PREDICTED >90.0 Normal >60.0 [facility] Comment on above: Result Comment: Calc ulation based on the Chronic Kidney Disease Epidemiology Collaboration (CKD-EPI) equation refit without adjustment for race Performed By: #### Abdelrahman CARBAJAL, LAB17, LAB61 ####Jewelry Finisher: JACK ORTIZ ([id number])[facility] ([facility])[address] [place] [address] Glucose [Mass/Vol] 101 mg/dL High 74-100 [facility] Comment on above: Performed By: #### Abdelrahman MOSES129, LAB17, LAB61 ####Jewelry Finisher: JACK ORTIZ ([id number])[facility])[address] [place] [address] [place] Potassium [Moles/Vol] 3.7 mmol/L Normal 3.5-5.1 [facility] Comment on above: Result Comment: Plas ma potassium values may be up to 0.5 mmol/L lower than serum values. Performed By: #### L AB129, LAB17, LAB61 ####Jewelry Finisher: JACK ORTIZ ([id number])[facility])[address] [place] [address] Protein [Mass/Vol] 6.1 g/dL Low 6.4-8.3 [facility] Comment on above: Performed By: #### L AB129, LAB17, LAB61 ####Jewelry Finisher: JACK ORTIZ ([id number])[facility] ([facility])[address] [place] [address] Sodium [Moles/Vol] 133 mmol/L Low 136-145 [facility] Comment on above: Performed By: #### L AB129, LAB17, LAB61 ####Jewelry Finisher: JACK ORTIZ ([id number])[facility] ([facility])[address] [place] [address] Urea nitrogen [Mass/Vol] 15 mg/dL Normal 8-21 [facility] Comment on above: Performed By: #### Abdelrahman AB129, LAB17, LAB61 ####Jewelry Finisher: JACK ORTIZ ([id number])[facility])[address] [place] [address] Albumin [Mass/Vol] 2.6 g/dL Low 3.5-5.0 [facility] Comment on above: Performed By: #### L AB17, QSS378, ZLK289 ####Jewelry Finisher: JACK ORTIZ ([id number])[facility] ([facility])[address] [place] [address] [place] ALP [Catalytic activity/Vol] 94 U/L Normal 40-150 [facility] Comment on above: Performed By: #### L AB17, IUE189, ISF207 ####Jewelry Finisher: JACK ORTIZ ([id number])[facility])[address] [place] [address] [place] ALT [Catalytic activity/Vol] 9 U/L Normal <40 [facility] Comment on above: Performed By: #### L AB17, BDC513, ZMJ873 ####Jewelry Finisher: JACK ORTIZ ([id number])[facility] ([facility])[address] [place] [address] Anion gap [Moles/Vol] 8 mmol/L Normal 3-13 [facility] Comment on above: Performed By: #### L AB17, [id number], BQP268 ####Jewelry Finisher: JACK ORTIZ ([id number])[facility] ([facility])[address] [place] [address] AST [Catalytic activity/Vol] 26 U/L Normal <34 [facility] Comment on above: Performed By: #### L AB17, AFC485, MCT718 ####Jewelry Finisher: JACK ORTIZ ([id number])[facility] ([facility])[address] [place] [address] Bilirubin [Mass/Vol] 0.4 mg/dL Normal <1.2 [facility] Comment on above: Performed By: #### L AB17, UEM506, SKN961 ####Jewelry Finisher: JACK ORTIZ ([id number])[facility] ([facility])[address] [place] [address] Calcium [Mass/Vol] 7.8 mg/dL Low 8.4-10.2 [facility] Comment on above: Performed By: #### L AB17, DDR947, UNV753 ####Jewelry Finisher: JACK ORTIZ ([id number])[facility] ([facility])[address] [place] [address] [place] Chloride [Moles/Vol] 99 mmol/L Normal 98-107 [facility] Comment on above: Performed By: #### L AB17, VHH298, JPH895 ####Jewelry Finisher: JACK ORTIZ ([id number])[facility])[address] [place] [address] CO2 [Moles/Vol] 23 mmol/L Normal 22-29 [facility] Comment on above: Performed By: #### L AB17, [id number], OBA808 ####Jewelry Finisher: JACK ORTIZ ([id number])[facility])[address] [place] [address] Creatinine [Mass/Vol] 0.70 mg/dL Low 0.72-1.25 [facility] Comment on above: Performed By: #### L AB17, LMM978, VIK389 ####Jewelry Finisher: JACK ORTIZ ([id number])[facility])[address] [place] [address] GLOMERULAR FILTRATION RATE ML/MIN/1.73 SQ M.PREDICTED >90.0 Normal >60.0 [facility] Comment on above: Result Comment: Calc ulation based on the Chronic Kidney Disease Epidemiology Collaboration (CKD-EPI) equation refit without adjustment for race Performed By: #### L AB17, AYH636, PET181 ####Jewelry Finisher: JACK ORTIZ ([id number])[facility])[address] [place] [address] Glucose [Mass/Vol] 121 mg/dL High 74-100 [facility] Comment on above: Performed By: #### L AB17, RZP072, QJY338 ####Jewelry Finisher: JACK ORTIZ ([id number])[facility])[address] [place] [address] Potassium [Moles/Vol] 2.7 mmol/L Low 3.5-5.1 [facility] Comment on above: Result Comment: [facility] potassium values may be up to 0.5 mmol/L lower than serum values. Performed By: #### L AB17, ZVM171, LNT947 ####Jewelry Finisher: JACK ORTIZ ([id number])[facility] ([facility])[address] [place] [address] Protein [Mass/Vol] 5.7 g/dL Low 6.4-8.3 [facility] Comment on above: Performed By: #### L AB17, BKE475, PYH889 ####Jewelry Finisher: JACK ORTIZ ([id number])[facility])[address] [place] [address] [place] Sodium [Moles/Vol] 130 mmol/L Low 136-145 [facility] Comment on above: Performed By: #### L AB17, MCK447, [id number] ####Jewelry Finisher: JACK ORTIZ ([id number])[facility])[address] [place] [address] Urea nitrogen [Mass/Vol] 15 mg/dL Normal 8-21 [facility] Comment on above: Performed By: #### L AB17, XUX217, KEL844 ####Jewelry Finisher: JACK ORTIZ ([id number])[facility] ([facility])[address] [place] [address] CORTISOLon 12-02-2024 CORTISOL 4.4 ug/dL Normal 3.7-19.4 [facility] Comment on above: Result Comment: ORDE R COMMENTS:Before 10am 4.5-22.7 ug/dLAfter 5pm 1.7-14.1 ug/dL Performed By: #### L AB129, LAB17, LAB61 ####Jewelry Finisher: JACK ORTIZ ([id number])[facility] ([facility])[address] [place] [address] Comprehensive metabolic 1998 panelOrdered By: Eboni Laughlin on 12-02-2024 Albumin [Mass/Vol] 2.8 g/dL Low 3.5 - 5.0 g/dL [facility] ALP [Catalytic activity/Vol] 100 U/L 40 - 150 U/L [facility] ALT [Catalytic activity/Vol] 15 U/L NINF - 40 U/L [facility] Anion gap [Moles/Vol] 11 mmol/L 3 - 13 mmol/L [facility] AST [Catalytic activity/Vol] 30 U/L NINF - 34 U/L [facility] Bilirubin [Mass/Vol] 0.4 mg/dL NINF - 1.2 mg/dL [facility] Calcium [Mass/Vol] 8.1 mg/dL Low 8.4 - 10. 2 mg/dL [facility] Chloride [Moles/Vol] 97 mmol/L Low 98 - 10 7 mmol/L [facility] CO2 [Moles/Vol] 25 mmol/L 22 - 29 mmol/L [facility] Creatinine [Mass/Vol] 0.71 mg/dL Low 0.72 - 1.25 mg/dL [facility] GFR/1.73 sq M.predicted (S/P/Bld) [Vol rate/Area] - [facility] Comment on above: Calculation based on the Chronic Kidney Disease Epidemiology Collaboration (CKD-EPI) equation refit without adjustment for race Glucose [Mass/Vol] 101 mg/dL High 74 - 100 mg/dL [facility] Interpretation and review of laboratory results Abnormal [facility] Potassium [Moles/Vol] 3.7 mmol/L 3.5 - 5.1 mmol/L [facility] Comment on above: Plasma potassium ema ues may be up to 0.5 mmol/L lower than serum values. Protein [Mass/Vol] 6.1 g/dL Low 6.4 - 8.3 g/dL [facility] Sodium [Moles/Vol] 133 mmol/L Low 136 - 145 mmol/L [facility] Urea nitrogen [Mass/Vol] 15 mg/dL 8 - 21 mg/dL [facility] Comprehensive metabolic 1998 panelon 12-02-2024 Albumin [Mass/Vol] 2.6 g/dL Low 3.5 - 5.0 g/dL [facility] ALP [Catalytic activity/Vol] 94 U/L 40 - 150 U/L [facility] ALT [Catalytic activity/Vol] 9 U/L [facility] [place] - 40 U/L [facility] Anion gap [Moles/Vol] 8 mmol/L 3 - 13 mmol/L [facility] AST [Catalytic activity/Vol] 26 U/L [facility] [place] - 34 U/L [facility] Bilirubin [Mass/Vol] 0.4 mg/dL [facility] [place] - 1.2 mg/dL [facility] Calcium [Mass/Vol] 7.8 mg/dL Low 8.4 - 10. 2 mg/dL [facility] Chloride [Moles/Vol] 99 mmol/L 98 - 10 7 mmol/L [facility] CO2 [Moles/Vol] 23 mmol/L 22 - 29 mmol/L [facility] Creatinine [Mass/Vol] 0.7 mg/dL Low 0.72 - 1.25 mg/dL [facility] GFR/1.73 sq M.predicted (S/P/Bld) [Vol rate/Area] - PINF [facility] Comment on above: Calculation based on the Chronic Kidney Disease Epidemiology Collaboration (CKD-EPI) equation refit without adjustment for race Glucose [Mass/Vol] 121 mg/dL High 74 - 100 mg/dL [facility] Interpretation and review of laboratory results Abnormal [facility] Potassium [Moles/Vol] 2.7 mmol/L Low 3.5 - 5.1 mmol/L [facility] Comment on above: Plasma potassium ema ues may be up to 0.5 mmol/L lower than serum values. Protein [Mass/Vol] 5.7 g/dL Low 6.4 - 8.3 g/dL [facility] Sodium [Moles/Vol] 130 mmol/L Low 136 - 145 mmol/L [facility] Urea nitrogen [Mass/Vol] 15 mg/dL 8 - 21 mg/dL [facility] ETHYL GLUCURONIDE SCREEN, UR INEon 12-02-2024 ETHYL GLUCURONIDE, URINE Positive Normal Negative [facility] Comment on above: Result [...] been determined by the clinical laboratories of [facility]. Performed By: #### L [id number], [id number] ####Jewelry Finisher: JACK ORTIZ ([id number])[facility] ([address] Laboratory - Chemistry and C hemistry - challengeon 12-02-2024 Sodium (24H U) [Mass/Vol] 87 mmol/L [facility] Cortisol [Mass/Vol] 4.4 ug/dL 3.7 - 19 .4 ug/dL [facility] TSH Qn 3.07 m[IU]/L [facility] Magnesium [Mass/Vol] 1.7 mg/dL 1.6 - 2 .6 mg/dL [facility] Laboratory - Chemistry and C hemistry - challengeOrdered By: Shaye Ramirez on 12-02-2024 Osmolality [Osmolality] 279 mosm/kg Low [facility] MAGNESIUMon 12-02-2024 Magnesium [Mass/Vol] 1.7 mg/dL Normal 1.6-2.6 [facility] Comment on above: Result Comment: PAGE Menezes COMMENTS:Higher values can be expected in females during menses. Performed By: #### L AB17, [id number], [id number] ####Jewelry Finisher: JACK ORTIZ ([id number])[facility] ([facility])[address] [place] [address] Magnesium [Mass/Vol]on 12-02 Higher values can be expected in females during menses. [facility] No Panel InformationOrdered By: Whitney Sheikh on 12-02-2024 ETHYL GLUCURONIDE, URINE Positive Negative [facility] Ethyl Glucuronide nuñez s been screened by [...] been determined by the clinical laboratories of [facility]. [facility] No Panel Informationon 12-02 BUPRENORPHINE SCREEN Positive Negative [facility] Buprenorphine (Suboxone) has been screened for by Immunoassay at 5 ng/mL threshold. POSITIVE results are not confirmed by a more specific alternative method unless requested. If confirmation is needed, request confirmation under separate order. NOTE: These results are for medical treatment only. Analysis performed using non-forensic procedures. [facility] CREATININE, URINE 236.8 mg/dL High 63.0 - 166 .0 mg/dL [facility] Interpretation and review of laboratory results Abnormal [facility] SODIUM, URINE, FRACTIONAL EXCRETION 0.2 [facility]alt [facility] SODIUM, URINE, TUBULAR REABSORPTION 1 [facility] Interpretation and review of laboratory results Normal [facility] OSMOLALITY, URINE [address] [facility] Interpretation and review of laboratory results Normal [facility] Before 10am 4.5-22.7 ug/dL After 5pm 1.7-14.1 ug/dL [facility] Interpretation and review of laboratory results Normal [facility] No Panel InformationOrdered By: Shaye Ramirez on 12-02-2024 Interpretation and review of laboratory results Abnormal [facility] OSMOLALITY, SERUMon 12-03-19 25 OSMOLALITY, SERUM 279 mOsm/kg Low 280-300 [facility] Comment on above: Performed By: #### L [id number] ####Jewelry Finisher: JACK ORTIZ ([id number])[facility] ([facility])[address] [place] [address] [place] OSMOLALITY, URINEon 12-03-19 25 OSMOLALITY, URINE 581 mOsm/kg Normal 300-1000 [facility] Comment on above: Performed By: #### L [id number], [id number] ####Jewelry Finisher: JACK ORTIZ ([id number])[facility] ([facility])[address] [place] [address] [place] PHOSPHORUSon 12-02-2024 Phosphate [Mass/Vol] 3.3 mg/dL Normal 2.3-4.7 [facility] Comment on above: Performed By: #### L AB17, [id number], [id number] ####Jewelry Finisher: JACK ORTIZ ([id number])[facility] ([facility])[address] [place] [address] [place] Phosphate [Moles/Vol]on 11-16 Phosphate [Mass/Vol] 3.3 mg/dL 2.3 - 4 .7 mg/dL [facility] Progress Noteon 12-02-2024 Progress Note Normal [facility] Progress Note Normal [facility] Progress Note Normal [facility] SODIUM, URINE, RANDOMon 11-16 CREATININE, URINE 236.8 mg/dL High 63.0-166.0 [facility] Comment on above: Performed By: #### L AB420, [id number] ####Jewelry Finisher: JACK ORTIZ ([id number])[facility])[address] [place] [address] Sodium (U) [Moles/Vol] 87 mmol/L Normal [facility] Comment on above: Performed By: #### L AB420, [id number] ####Jewelry Finisher: JACK ORTIZ ([id number])[facility] ([facility])[address] [place] [address] SODIUM, URINE, FRACTIONAL EXCRETION 0.2 Normal [facility] Comment on above: Performed By: #### L AB420, [id number] ####Jewelry Finisher: JACK ORTIZ ([id number])[facility])[address] [place] [address] SODIUM, URINE, TUBULAR REABSORPTION 1.0 Normal [facility] Comment on above: Performed By: #### L AB420, [id number] ####Jewelry Finisher: JACK ORTIZ ([id number])[facility] ([facility])[address] [place] [address] THYROID STIMULATING HORMONEo n 12-02-2024 THYROID STIMULATING HORMONE 3.07 uIU/mL Normal 0.35-4.94 [facility] Comment on above: Performed By: #### L AB129, LAB17, LAB61 ####Jewelry Finisher: JACK ORTIZ ([id number])[facility])[address] [place] [address] [id number] 12-01-2024 [id number] Normal [facility] BASIC METABOLIC PANELon 11-16 Anion gap [Moles/Vol] 9 mmol/L Normal 3-13 [facility] Comment on above: Performed By: #### L AB113, [id number], LAB15 ####Jewelry Finisher: JACK ORTIZ ([id number])[facility])[address] [place] [address] Calcium [Mass/Vol] 8.0 mg/dL Low 8.4-10.2 [facility] Comment on above: Performed By: #### L AB113, [id number], LAB15 ####Jewelry Finisher: JACK ORTIZ ([id number])[facility] ([facility])[address] [place] [address] Chloride [Moles/Vol] 103 mmol/L Normal 98-107 [facility] Comment on above: Performed By: #### L AB113, [id number], LAB15 ####Jewelry Finisher: JACK ORTIZ ([id number])[facility])[address] [place] [address] CO2 [Moles/Vol] 22 mmol/L Normal 22-29 [facility] Comment on above: Performed By: #### L AB113, [id number], LAB15 ####Jewelry Finisher: JACK ORTIZ ([id number])[facility])[address] [place] [address] Creatinine [Mass/Vol] 0.70 mg/dL Low 0.72-1.25 [facility] Comment on above: Performed By: #### L AB113, [id number], LAB15 ####Jewelry Finisher: JACK ORTIZ ([id number])[facility])[address] [place] [address] GLOMERULAR FILTRATION RATE ML/MIN/1.73 SQ M.PREDICTED >90.0 Normal >60.0 [facility] Comment on above: Result Comment: Calc ulation based on the Chronic Kidney Disease Epidemiology Collaboration (CKD-EPI) equation refit without adjustment for race Performed By: #### L AB113, [id number], LAB15 ####Jewelry Finisher: JACK ORTIZ ([id number])[facility])[address] [place] [address] Glucose [Mass/Vol] 120 mg/dL High 74-100 [facility] Comment on above: Performed By: #### L AB113, [id number], LAB15 ####Jewelry Finisher: JACK ORTIZ ([id number])[facility])[address] [place] [address] Potassium [Moles/Vol] 3.2 mmol/L Low 3.5-5.1 [facility] Comment on above: Result Comment: [facility] potassium values may be up to 0.5 mmol/L lower than serum values. Performed By: #### L AB113, [id number], LAB15 ####Jewelry Finisher: JACK ORTIZ ([id number])[facility])[address] [place] [address] Sodium [Moles/Vol] 134 mmol/L Low 136-145 [facility] Comment on above: Performed By: #### L AB113, [id number], LAB15 ####Jewelry Finisher: JACK ORTIZ ([id number])[facility])[address] [place] [address] Urea nitrogen [Mass/Vol] 13 mg/dL Normal 8-21 [facility] Comment on above: Performed By: #### L AB113, [id number], LAB15 ####Jewelry Finisher: JACK ORTIZ ([id number])[facility])[address] [place] [address] Basic metabolic 1998 panelon 12-01-2024 Anion gap [Moles/Vol] 9 mmol/L 3 - 13 mmol/L [facility] Calcium [Mass/Vol] 8 mg/dL Low 8.4 - 10. 2 mg/dL [facility] Chloride [Moles/Vol] 103 mmol/L 98 - 10 7 mmol/L [facility] CO2 [Moles/Vol] 22 mmol/L 22 - 29 mmol/L [facility] Creatinine [Mass/Vol] 0.7 mg/dL Low 0.72 - 1.25 mg/dL [facility] GFR/1.73 sq M.predicted (S/P/Bld) [Vol rate/Area] - PINF [facility] Comment on above: Calculation based on the Chronic Kidney Disease Epidemiology Collaboration (CKD-EPI) equation refit without adjustment for race Glucose [Mass/Vol] 120 mg/dL High 74 - 100 mg/dL [facility] Potassium [Moles/Vol] 3.2 mmol/L Low 3.5 - 5.1 mmol/L [facility] Comment on above: Plasma potassium ema ues may be up to 0.5 mmol/L lower than serum values. Sodium [Moles/Vol] 134 mmol/L Low 136 - 145 mmol/L [facility] Urea nitrogen [Mass/Vol] 13 mg/dL 8 - 21 mg/dL [facility] CBC W Auto Differential pane l (Bld)Ordered By: Shaye Ding on 12-01-2024 Basophils (Bld) [#/Vol] 0.1 10*3/uL 0.0 - 0.2 10*3/uL [facility] Basophils/100 WBC (Bld) 0.6 % 0.0 - 2.0 % [facility] Eosinophils (Bld) [#/Vol] 0 10*3/uL 0.0 - 0.5 10*3/uL [facility] Eosinophils/100 WBC (Bld) 0.3 % 0.0 - 6.0 % [facility] Erythrocyte distribution width (RBC) [Ratio] 22.6 % High 11.5 - 15.0 % [facility] Hematocrit (Bld) [Volume fraction] 34.5 % Low 40.0 - 52.0 % [facility] Hemoglobin (Bld) [Mass/Vol] 10.8 g/dL Low 13.0 - 18.0 g/dL [facility] Immature granulocytes (Bld) [#/Vol] 0 10*3/uL NINF - 0.1 10*3/uL [facility] Immature granulocytes/100 WBC (Bld) 0.4 % 0.0 - 2.0 % [facility] Interpretation and review of laboratory results Abnormal [facility] Lymphocytes (Bld) [#/Vol] 1.3 10*3/uL 1.0 - 4.3 10*3/uL [facility] Lymphocytes/100 WBC (Bld) 12.4 % Low 15.0 - 45.0 % [facility] MCH (RBC) [Entitic mass] 23 pg Low 26.0 - 34.0 pg [facility] MCHC (RBC) [Mass/Vol] 31.3 % 30.5 - 36.0 % [facility] MCV (RBC) [Entitic vol] 73.6 fL Low 77.0 - 99.0 fL [facility] Monocytes (Bld) [#/Vol] 0.5 10*3/uL 0.0 - 0.9 10*3/uL [facility] Monocytes/100 WBC (Bld) 5 % 5.0 - 13.0 % [facility] Neutrophils (Bld) [#/Vol] 8.3 10*3/uL High 1.8 - 7.5 10*3/uL [facility] Neutrophils/100 WBC (Bld) 81.3 % 38.0 - 82.0 % [facility] Nucleated RBC/100 WBC (Bld) [Ratio] 0 % [facility] Platelet mean volume (Bld) [Entitic vol] 9.9 fL 9.0 - 12.7 fL [facility] Platelets (Bld) [#/Vol] 235 10*3/uL 140 - 440 10*3/uL [facility] RBC (Bld) [#/Vol] 4.69 10*6/uL 4.40 - 5.9 0 10*6/uL [facility] WBC (Bld) [#/Vol] 10.2 10*3/uL 3.6 - 10.7 10*3/uL [facility] CBC WITH AUTO DIFFERENTIALon 12-01-2024 Basophils (Bld) [#/Vol] 0.1 10*3/uL Normal 0.0-0.2 [facility] Comment on above: Performed By: #### L [id number] ####Jewelry Finisher: JACK ORTIZ ([id number])[facility])[address] [place] [address] Basophils/100 WBC (Bld) 0.6 % Normal 0.0-2.0 [facility] Comment on above: Performed By: #### L [id number] ####Jewelry Finisher: JACK ORTIZ ([id number])[facility] ([facility])[address] [place] [address] [place] Eosinophils (Bld) [#/Vol] 0.0 10*3/uL Normal 0.0-0.5 [facility] Comment on above: Performed By: #### L [id number] ####Jewelry Finisher: JACK ORTIZ ([id number])[facility])[address] [place] [address] Eosinophils/100 WBC (Bld) 0.3 % Normal 0.0-6.0 [facility] Comment on above: Performed By: #### L [id number] ####Jewelry Finisher: JACK ORTIZ ([id number])[facility])[address] [place] [address] [place] Erythrocyte distribution width (RBC) [Ratio] 22.6 % High 11.5-15.0 [facility] Comment on above: Performed By: #### L [id number] ####Jewelry Finisher: JACK [id number])[facility] [address] Hematocrit (Bld) [Volume fraction] 34.5 % Low 40.0-52.0 [facility] Comment on above: Performed By: #### L [id number] ####Jewelry Finisher: JACK ORTIZ ([id number])[facility])[address] [place] [address] Hemoglobin (Bld) [Mass/Vol] 10.8 g/dL Low 13.0-18.0 [facility] Comment on above: Performed By: #### L [id number] ####Jewelry Finisher: JACK ORTIZ ([id number])[facility])[address] [place] [address] IMMATURE GRANS % 0.4 % Normal 0.0-2.0 [facility] Comment on above: Performed By: #### L [id number] ####Jewelry Finisher: JACK ORTIZ ([id number])[facility])[address] [place] [address] IMMATURE GRANS ABSOLUTE 0.0 10*3/uL Normal <0.1 [facility] Comment on above: Performed By: #### L [id number] ####Jewelry Finisher: JACK ORTIZ ([id number])[facility])[address] [place] [address] Lymphocytes (Bld) [#/Vol] 1.3 10*3/uL Normal 1.0-4.3 [facility] Comment on above: Performed By: #### L [id number] ####Jewelry Finisher: JACK ORTIZ ([id number])[facility])[address] [place] [address] Lymphocytes/100 WBC (Bld) 12.4 % Low 15.0-45.0 [facility] Comment on above: Performed By: #### L [id number] ####Jewelry Finisher: JACK ORTIZ ([id number])[facility])[address] [place] [address] MCH (RBC) [Entitic mass] 23.0 pg Low 26.0-34.0 [facility] Comment on above: Performed By: #### L [id number] ####Jewelry Finisher: JACK ORTIZ ([id number])[facility])[address] [place] [address] MCHC 31.3 % Normal 30.5-36.0 [facility] Comment on above: Performed By: #### L [id number] ####Jewelry Finisher: JACK ORTIZ ([id number])[facility])[address] [place] [address] MCV (RBC) [Entitic vol] 73.6 fL Low 77.0-99.0 [facility] Comment on above: Performed By: #### L [id number] ####Jewelry Finisher: JACK ORTIZ ([id number])[facility])[address] [place] [address] Monocytes (Bld) [#/Vol] 0.5 10*3/uL Normal 0.0-0.9 [facility] Comment on above: Performed By: #### L [id number] ####Jewelry Finisher: JACK ORTIZ ([id number])[facility])[address] [place] [address] Monocytes/100 WBC (Bld) 5.0 % Normal 5.0-13.0 [facility] Comment on above: Performed By: #### L [id number] ####Jewelry Finisher: JACK ORTIZ ([id number])[facility])[address] [place] [address] NEUTROPHILS ABSOLUTE 8.3 10*3/uL High 1.8-7.5 [facility] Comment on above: Performed By: #### L [id number] ####Jewelry Finisher: JACK ORTIZ ([id number])[facility])[address] [place] [address] Neutrophils/100 WBC (Bld) 81.3 % Normal 38.0-82.0 [facility] Comment on above: Performed By: #### L [id number] ####Jewelry Finisher: JACK ORTIZ ([id number])[facility] ([facility])[address] [place] [address] NRBC 0.0 /100 WBCs Normal 0.0-2.0 [facility] Comment on above: Performed By: #### L [id number] ####Jewelry Finisher: JACK ORTIZ ([id number])[facility] ([facility])[address] [place] [address] Platelet mean volume (Bld) [Entitic vol] 9.9 fL Normal 9.0-12.7 [facility] Comment on above: Performed By: #### L [id number] ####Jewelry Finisher: JACK ORTIZ ([id number])[facility])[address] [place] [address] Platelets (Bld) [#/Vol] 235 10*3/uL Normal 140-440 [facility] Comment on above: Performed By: #### L [id number] ####Jewelry Finisher: JACK ORTIZ ([id number])[facility] ([facility])[address] [place] [address] RBC (Bld) [#/Vol] 4.69 10*6/uL Normal 4.40-5.90 [facility] Comment on above: Performed By: #### L [id number] ####Jewelry Finisher: JACK ORTIZ ([id number])[facility])[address] [place] [address] WBC (Bld) [#/Vol] 10.2 10*3/uL Normal 3.6-10.7 [facility] Comment on above: Performed By: #### L [id number] ####Jewelry Finisher: JACK ORTIZ ([id number])[facility])[address] [place] [address] COMPREHENSIVE METABOLIC PANE Eduardo 12-01-2024 Albumin [Mass/Vol] 2.9 g/dL Low 3.5-5.0 [facility] Comment on above: Performed By: #### L [id number] ####Jewelry Finisher: JACK ORTIZ ([id number])[facility])[address] [place] [address] ALP [Catalytic activity/Vol] 114 U/L Normal 40-150 [facility] Comment on above: Performed By: #### L [id number] ####Jewelry Finisher: JACK ORTIZ ([id number])[facility] ([facility])[address] [place] [address] ALT [Catalytic activity/Vol] 14 U/L Normal <40 [facility] Comment on above: Performed By: #### L [id number] ####Jewelry Finisher: JACK ORTIZ ([id number])[facility] ([facility])[address] [place] [address] Anion gap [Moles/Vol] 8 mmol/L Normal 3-13 [facility] Comment on above: Performed By: #### L [id number] ####Jewelry Finisher: JACK ORTIZ ([id number])[facility] ([facility])[address] [place] [address] AST [Catalytic activity/Vol] 38 U/L High <34 [facility] Comment on above: Performed By: #### L [id number] ####Jewelry Finisher: JACK ORTIZ ([id number])[facility] ([facility])[address] [place] [address] Bilirubin [Mass/Vol] 0.9 mg/dL Normal <1.2 [facility] Comment on above: Performed By: #### L AB17 ####Jewelry Finisher: JACK ORTIZ ([id number])[facility] ([facility])[address] [place] [address] Calcium [Mass/Vol] 8.0 mg/dL Low 8.4-10.2 [facility] Comment on above: Performed By: #### L [id number] ####Jewelry Finisher: JACK ORTIZ ([id number])[facility] ([facility])[address] [place] [address] Chloride [Moles/Vol] 99 mmol/L Normal 98-107 [facility] Comment on above: Performed By: #### L [id number] ####Jewelry Finisher: JACK ORTIZ ([id number])[facility] ([facility])[address] [place] [address] CO2 [Moles/Vol] 25 mmol/L Normal 22-29 [facility] Comment on above: Performed By: #### L AB17 ####Jewelry Finisher: JACK ORTIZ ([id number])[facility] ([facility])[address] [place] [address] Creatinine [Mass/Vol] 0.66 mg/dL Low 0.72-1.25 [facility] Comment on above: Performed By: #### L [id number] ####Jewelry Finisher: JACK ORTIZ ([id number])[facility])[address] [place] [address] GLOMERULAR FILTRATION RATE ML/MIN/1.73 SQ M.PREDICTED >90.0 Normal >60.0 [facility] Comment on above: Result Comment: Calc ulation based on the Chronic Kidney Disease Epidemiology Collaboration (CKD-EPI) equation refit without adjustment for race Performed By: #### L AB17 ####Jewelry Finisher: JACK ORTIZ ([id number])[facility] ([facility])[address] [place] [address] Glucose [Mass/Vol] 93 mg/dL Normal 74-100 [facility] Comment on above: Performed By: #### L AB17 ####Jewelry Finisher: JACK ORTIZ ([id number])[facility])[address] [place] [address] Potassium [Moles/Vol] 2.7 mmol/L Low 3.5-5.1 [facility] Comment on above: Result Comment: [facility] potassium values may be up to 0.5 mmol/L lower than serum values. Performed By: #### L AB17 ####Jewelry Finisher: JACK ORTIZ ([id number])[facility] ([facility])[address] [place] [address] Protein [Mass/Vol] 6.5 g/dL Normal 6.4-8.3 [facility] Comment on above: Performed By: #### L AB17 ####Jewelry Finisher: JACK ORTIZ ([id number])[facility] ([facility])[address] [place] [address] Sodium [Moles/Vol] 132 mmol/L Low 136-145 [facility] Comment on above: Performed By: #### L AB17 ####Jewelry Finisher: JACK ORTIZ ([id number])[facility] ([facility])[address] [place] [address] Urea nitrogen [Mass/Vol] 11 mg/dL Normal 8-21 [facility] [facility] Comment on above: Performed By: #### L [id number] ####Jewelry Finisher: JACK ORTIZ ([id number])[facility])[address] [place] [address] Comprehensive metabolic 1998 panelOrdered By: Carolina Barry on 12-01-2024 Albumin [Mass/Vol] 2.9 g/dL Low 3.5 - 5.0 g/dL [facility] ALP [Catalytic activity/Vol] 114 U/L 40 - 150 U/L [facility] ALT [Catalytic activity/Vol] 14 [facility] Anion gap [Moles/Vol] 8 mmol/L 3 - 13 mmol/L [facility] AST [Catalytic activity/Vol] 38 U/L [facility] Bilirubin [Mass/Vol] 0.9 mg/dL [facility] mg/dL [facility] Calcium [Mass/Vol] 8 mg/dL Low 8.4 - 10. 2 mg/dL [facility] Chloride [Moles/Vol] 99 mmol/L 98 - 10 7 mmol/L [facility] CO2 [Moles/Vol] 25 mmol/L 22 - 29 mmol/L [facility] Creatinine [Mass/Vol] 0.66 mg/dL Low 0.72 - 1.25 mg/dL [facility] GFR/1.73 sq M.predicted (S/P/Bld) [Vol rate/Area] - PINF [facility] Comment on above: Calculation based on the Chronic Kidney Disease Epidemiology Collaboration (CKD-EPI) equation refit without adjustment for race Glucose [Mass/Vol] 93 mg/dL 74 - 100 mg/dL [facility] Interpretation and review of laboratory results Abnormal [facility] Potassium [Moles/Vol] 2.7 mmol/L Low 3.5 - 5.1 mmol/L [facility] Comment on above: Plasma potassium ema ues may be up to 0.5 mmol/L lower than serum values. Protein [Mass/Vol] 6.5 g/dL 6.4 - 8.3 g/dL [facility] Sodium [Moles/Vol] 132 mmol/L Low 136 - 145 mmol/L [facility] Urea nitrogen [Mass/Vol] 11 mg/dL 8 - 21 mg/dL [facility] Consulton 12-01-2024 Consult Normal [facility] Consult Normal [facility] Consult Normal [facility] ECG 12-LEADon 12-01-2024 ECG 12-LEAD IMPRESSION: Sinus tachycardia Probable left atrial enlargement Nonspecific repol abnormality, lateral leads No change compared to previous ekg Electronically Signed On 12-01-2024 00:30:11 EDT by Ramesh Grimaldo Normal [facility] Laboratory - Chemistry and C hemistry - challengeon 12-01-2024 Magnesium [Mass/Vol] 2.1 mg/dL 1.6 - 2 .6 mg/dL [facility] Magnesium [Mass/Vol] 1.5 mg/dL Low 1.6 - 2 .6 mg/dL [facility] MAGNESIUMon 12-01-2024 Magnesium [Mass/Vol] 2.1 mg/dL Normal 1.6-2.6 [facility] Comment on above: Result Comment: PAGE R COMMENTS:Higher values can be expected in females during menses. Performed By: #### L AB113, [id number], LAB15 ####Jewelry Finisher: JACK ORTIZ ([id number])[facility] ([facility])[address] [place] [address] Magnesium [Mass/Vol] 1.5 mg/dL Low 1.6-2.6 [facility] Comment on above: Result Comment: PAGE R COMMENTS:Higher values can be expected in females during menses. Performed By: #### L AB113, [id number] ####Jewelry Finisher: JACK ORTIZ ([id number])[facility] ([facility])[address] [place] [address] Magnesium [Mass/Vol]on 12-01 Interpretation and review of laboratory results Normal [facility] Higher values can be expected in females during menses. [facility] Interpretation and review of laboratory results Abnormal [facility] Higher values can be expected in females during menses. [facility] No Panel Informationon 12-01 Interpretation and review of laboratory results Abnormal [facility] Sinus tachycardia Probable left atrial enlargement Nonspecific repol abnormality, lateral leads No change compared to previous ekg Electronically Signed On 12-01-2024 00:30:11 EDT by Ramesh De Oliveira M D - 12/01/2024 IMPRESSION: Sinus tachycardia Probable left atrial enlargement Nonspecific repol abnormality, lateral leads No change compared to previous ekg Electronically Signed On 12-01-2024 00:30:11 EDT by Ramesh Grimaldo [facility] No Panel InformationOrdered By: Ramesh Grimaldo on 12-01-2024 P [place] 82 degrees [facility] Work Phone: PA Interval 143 ms [facility] Work Phone: QRS [place] 31 degrees [facility] Work Phone: QRSD Interval 100 ms [facility] Work Phone: QT Interval 332 ms [facility] Work Phone: QTC Interval 477 ms [facility] Work Phone: T Wave [place] 104 degrees [facility] Work Phone: [facility] Work Phone: PHOSPHORUSon 12-01-2024 Phosphate [Mass/Vol] 1.9 mg/dL Low 2.3-4.7 [facility] Comment on above: Performed By: #### L AB113, [id number], LAB15 ####Jewelry Finisher: JACK ORTIZ ([id number])[facility] ([address] Phosphate [Mass/Vol] 3.2 mg/dL Normal 2.3-4.7 [facility] Comment on above: Performed By: #### L AB113, [id number] ####Jewelry Finisher: JACK ORTIZ ([id number])[facility] ([facility])[address] [place] [address] [place] Phosphate [Moles/Vol]on 11-16 Phosphate [Mass/Vol] 1.9 mg/dL Low 2.3 - 4 .7 mg/dL [facility] Interpretation and review of laboratory results Normal [facility] Phosphate [Mass/Vol] 3.2 mg/dL 2.3 - 4 .7 mg/dL [facility] Progress Noteon 12-01-2024 Progress [facility] Progress [facility] Vital signsOrdered By: Nicho Grimaldo on 12-01-2024 Heart rate 123 /min bpm [facility] Work Phone: ACETAMINOPHEN LEVELon 2024 Acetaminophen [Mass/Vol] ug/mL Low 10.0-30.0 [facility] Comment on above: Result Comment: PAGE Menezes COMMENTS:Acetaminophen concentrations greater than 150 ug/mL at 4 hours after ingestion and greater than 40 ug/mL at 12 hours after ingestion are often associated with toxicity. Performed By: #### L AB43, LAB99, LAB15 ####Jewelry Finisher: JACK ORTIZ ([id number])[facility]USMain [place] ButlerRODERICKAN ([facility])[address] [place] [address] [place] Acetaminophen [Mass/Vol]on 11-30-2024 Interpretation and review of laboratory results Abnormal [facility] Acetaminophen concentrations greater than 150 ug/mL at 4 hours after ingestion and greater than 40 ug/mL at 12 hours after ingestion are often associated with toxicity. [facility] BASIC METABOLIC PANELon 11-16 Anion gap [Moles/Vol] 12 mmol/L Normal 3-13 [facility] Comment on above: Performed By: #### L AB43, LAB99, LAB15 ####Jewelry Finisher: JACK ORTIZ ([id number])[facility] CAMPUSMain [place] ([facility])[address] [place] [address] Calcium [Mass/Vol] 7.2 mg/dL Low 8.4-10.2 [facility] Comment on above: Performed By: #### L AB43, LAB99, LAB15 ####Jewelry Finisher: JACK ORTIZ ([id number])[facility] [place] ([facility])[address] [place] [address] [place] Chloride [Moles/Vol] 96 mmol/L Low 98-107 [facility] Comment on above: Performed By: #### L AB43, LAB99, LAB15 ####Jewelry Finisher: JACK ORTIZ ([id number])[facility]AMPUSMain [place] ([facility])[address] [place] [address] [place] CO2 [Moles/Vol] 26 mmol/L Normal 22-29 [facility] Comment on above: Performed By: #### Abdelrahman AB43, LAB99, LAB15 ####Jewelry Finisher: JACK ORTIZ ([id number])[facility]USMain [place] ([facility])[address] [place] [address] [place] Creatinine [Mass/Vol] 0.70 mg/dL Low 0.72-1.25 [facility] Comment on above: Performed By: #### Abdelrahman AB43, LAB99, LAB15 ####Jewelry Finisher: JACK ORTIZ ([id number])[facility] CAMPUSMian [place] ([facility])[address] [place] [address] GLOMERULAR FILTRATION RATE ML/MIN/1.73 SQ M.PREDICTED >90.0 Normal >60.0 [facility] Comment on above: Result Comment: Calc ulation based on the Chronic Kidney Disease Epidemiology Collaboration (CKD-EPI) equation refit without adjustment for race Performed By: #### L AB43, LAB99, LAB15 ####Jewelry Finisher: JACK ORTIZ ([id number])[facility]USMain [place] ([facility])[address] [place] [address] [place] Glucose [Mass/Vol] 103 mg/dL High 74-100 [facility] Comment on above: Performed By: #### L AB43, LAB99, LAB15 ####Jewelry Finisher: JACK ORTIZ ([id number])[facility] [place] ([facility])[address] Potassium [Moles/Vol] 2.7 mmol/L Low 3.5-5.1 [facility] Comment on above: Result Comment: [facility] potassium values may be up to 0.5 mmol/L lower than serum values. Performed By: #### L AB43, LAB99, LAB15 ####Jewelry Finisher: JACK ORTIZ ([id number])[facility]USMain [place] ([facility])[address] Sodium [Moles/Vol] 134 mmol/L Low 136-145 [facility] Comment on above: Performed By: #### L AB43, LAB99, LAB15 ####Jewelry Finisher: JACK ORTIZ ([id number])[facility] [place] ([facility])[address] [place] [address] Urea nitrogen [Mass/Vol] 18 mg/dL Normal 8-21 [facility] Comment on above: Performed By: #### L AB43, LAB99, LAB15 ####Jewelry Finisher: JACK ORTIZ ([id number])[facility] ([facility])[address] [place] [address] Basic metabolic 1998 panelOr dered By: La Lawrence on 11-30-2024 Anion gap [Moles/Vol] 12 mmol/L 3 - 13 mmol/L [facility] Calcium [Mass/Vol] 7.2 mg/dL Low 8.4 - 10. 2 mg/dL [facility] Chloride [Moles/Vol] 96 mmol/L Low 98 - 10 7 mmol/L [facility] CO2 [Moles/Vol] 26 mmol/L 22 - 29 mmol/L [facility] Creatinine [Mass/Vol] 0.7 mg/dL Low 0.72 - 1.25 mg/dL [facility] GFR/1.73 sq M.predicted (S/P/Bld) [Vol rate/Area] - PINF [facility] Comment on above: Calculation based on the Chronic Kidney Disease Epidemiology Collaboration (CKD-EPI) equation refit without adjustment for race Glucose [Mass/Vol] 103 mg/dL High 74 - 100 mg/dL [facility] Interpretation and review of laboratory results Abnormal [facility] Potassium [Moles/Vol] 2.7 mmol/L Low 3.5 - 5.1 mmol/L [facility] Comment on above: Plasma potassium ema ues may be up to 0.5 mmol/L lower than serum values. Sodium [Moles/Vol] 134 mmol/L Low 136 - 145 mmol/L [facility] Urea nitrogen [Mass/Vol] 18 mg/dL 8 - 21 mg/dL [facility] CBC W Auto Differential pane l (Bld)on 11-30-2024 Basophils (Bld) [#/Vol] 0.1 10*3/uL 0.0 - 0.2 10*3/uL [facility] Basophils/100 WBC (Bld) 0.6 % 0.0 - 2.0 % [facility] Eosinophils (Bld) [#/Vol] 0 10*3/uL 0.0 - 0.5 10*3/uL [facility] Eosinophils/100 WBC (Bld) 0 % 0.0 - 6.0 % [facility] Erythrocyte distribution width (RBC) [Ratio] 23 % High 11.5 - 15.0 % [facility] Hematocrit (Bld) [Volume fraction] 34.1 % Low 40.0 - 52.0 % [facility] Hemoglobin (Bld) [Mass/Vol] 10.6 g/dL Low 13.0 - 18.0 g/dL [facility] Immature granulocytes (Bld) [#/Vol] 0 10*3/uL NINF - 0.1 10*3/uL [facility] Immature granulocytes/100 WBC (Bld) 0.4 % 0.0 - 2.0 % [facility] Interpretation and review of laboratory results Abnormal [facility] Lymphocytes (Bld) [#/Vol] 1 10*3/uL 1.0 - 4.3 10*3/uL [facility] Lymphocytes/100 WBC (Bld) 11 % Low 15.0 - 45.0 % [facility] MCH (RBC) [Entitic mass] 22.9 pg Low 26.0 - 34.0 pg [facility] MCHC (RBC) [Mass/Vol] 31.1 % 30.5 - 36.0 % [facility] MCV (RBC) [Entitic vol] 73.7 fL Low 77.0 - 99.0 fL [facility] Monocytes (Bld) [#/Vol] 0.5 10*3/uL 0.0 - 0.9 10*3/uL [facility] Monocytes/100 WBC (Bld) 5.9 % 5.0 - 13.0 % [facility] Neutrophils (Bld) [#/Vol] 7.4 10*3/uL 1.8 - 7.5 10*3/uL [facility] Neutrophils/100 WBC (Bld) 82.1 % High 38.0 - 82.0 % [facility] Nucleated RBC/100 WBC (Bld) [Ratio] 0 % [facility] Platelet mean volume (Bld) [Entitic vol] 9.4 fL 9.0 - 12.7 fL [facility] Platelets (Bld) [#/Vol] 214 10*3/uL 140 - 440 10*3/uL [facility] RBC (Bld) [#/Vol] 4.63 10*6/uL 4.40 - 5.9 0 10*6/uL [facility] WBC (Bld) [#/Vol] 9 10*3/uL 3.6 - 10.7 10*3/uL [facility] CBC WITH AUTO DIFFERENTIALon 11-30-2024 Basophils (Bld) [#/Vol] 0.1 10*3/uL Normal 0.0-0.2 [facility] Comment on above: Performed By: #### L [id number] ####Jewelry Finisher: JACK ORTIZ ([id number])[address] Basophils/100 WBC (Bld) 0.6 % Normal 0.0-2.0 [facility] Comment on above: Performed By: #### L [id number] ####Jewelry Finisher: JACK ORTIZ ([id number])[facility])[address] [place] [address] Eosinophils (Bld) [#/Vol] 0.0 10*3/uL Normal 0.0-0.5 [facility] Comment on above: Performed By: #### L [id number] ####Jewelry Finisher: JACK ORTIZ ([id number])[facility])[address] [place] [address] Eosinophils/100 WBC (Bld) 0.0 % Normal 0.0-6.0 [facility] Comment on above: Performed By: #### L [id number] ####Jewelry Finisher: JACK ORTIZ ([id number])[facility])[address] [place] [address] Erythrocyte distribution width (RBC) [Ratio] 23.0 % High 11.5-15.0 [facility] Comment on above: Performed By: #### L [id number] ####Jewelry Finisher: JACK ORTIZ ([id number])[facility])[address] [place] [address] Hematocrit (Bld) [Volume fraction] 34.1 % Low 40.0-52.0 [facility] Comment on above: Performed By: #### L [id number] ####Jewelry Finisher: JACK ORTIZ ([id number])[facility])[address] [place] [address] Hemoglobin (Bld) [Mass/Vol] 10.6 g/dL Low 13.0-18.0 [facility] Comment on above: Performed By: #### L [id number] ####Jewelry Finisher: JACK ORTIZ ([id number])[facility])[address] [place] [address] IMMATURE GRANS % 0.4 % Normal 0.0-2.0 [facility] Comment on above: Performed By: #### L [id number] ####Jewelry Finisher: JACK ORTIZ ([id number])[facility])[address] [place] [address] IMMATURE GRANS ABSOLUTE 0.0 10*3/uL Normal <0.1 [facility] Comment on above: Performed By: #### L [id number] ####Jewelry Finisher: JACK ORTIZ ([id number])[facility])[address] [place] [address] [place] Lymphocytes (Bld) [#/Vol] 1.0 10*3/uL Normal 1.0-4.3 [facility] Comment on above: Performed By: #### L [id number] ####Jewelry Finisher: JACK ORTIZ ([id number])[facility])[address] [place] [address] Lymphocytes/100 WBC (Bld) 11.0 % Low 15.0-45.0 [facility] Comment on above: Performed By: #### L [id number] ####Jewelry Finisher: JACK ORTIZ ([id number])[facility])[address] [place] [address] MCH (RBC) [Entitic mass] 22.9 pg Low 26.0-34.0 [facility] Comment on above: Performed By: #### L [id number] ####Jewelry Finisher: JACK ORTIZ ([id number])[facility])[address] [place] [address] MCHC 31.1 % Normal 30.5-36.0 [facility] Comment on above: Performed By: #### L [id number] ####Jewelry Finisher: JACK ORTIZ ([id number])[facility])[address] [place] [address] MCV (RBC) [Entitic vol] 73.7 fL Low 77.0-99.0 [facility] Comment on above: Performed By: #### L [id number] ####Jewelry Finisher: JACK ORTIZ ([id number])[facility])[address] [place] [address] Monocytes (Bld) [#/Vol] 0.5 10*3/uL Normal 0.0-0.9 [facility] Comment on above: Performed By: #### L [id number] ####Jewelry Finisher: JACK ORTIZ ([id number])[facility])[address] [place] [address] Monocytes/100 WBC (Bld) 5.9 % Normal 5.0-13.0 [facility] Comment on above: Performed By: #### L [id number] ####Jewelry Finisher: JACK ORTIZ ([id number])[facility] ([facility])[address] [place] [address] NEUTROPHILS ABSOLUTE 7.4 10*3/uL Normal 1.8-7.5 [facility] Comment on above: Performed By: #### L [id number] ####Jewelry Finisher: JACK ORTIZ ([id number])[facility] ([facility])[address] [place] [address] Neutrophils/100 WBC (Bld) 82.1 % High 38.0-82.0 [facility] Comment on above: Performed By: #### L [id number] ####Jewelry Finisher: JACK ORTIZ ([id number])[facility] ([facility])[address] [place] [address] NRBC 0.0 /100 WBCs Normal 0.0-2.0 [facility] Comment on above: Performed By: #### L [id number] ####Jewelry Finisher: JACK ORTIZ ([id number])[facility] ([facility])[address] [place] [address] Platelet mean volume (Bld) [Entitic vol] 9.4 fL Normal 9.0-12.7 [facility] Comment on above: Performed By: #### L [id number] ####Jewelry Finisher: JACK ORTIZ ([id number])[facility] ([facility])[address] [place] [address] Platelets (Bld) [#/Vol] 214 10*3/uL Normal 140-440 [facility] Comment on above: Performed By: #### L [id number] ####Jewelry Finisher: JACK ORTIZ ([id number])[facility] ([facility])[address] [place] [address] RBC (Bld) [#/Vol] 4.63 10*6/uL Normal 4.40-5.90 [facility] Comment on above: Performed By: #### L [id number] ####Jewelry Finisher: JACK ORTIZ ([id number])[facility] ([facility])[address] [place] [address] WBC (Bld) [#/Vol] 9.0 10*3/uL Normal 3.6-10.7 [facility] Comment on above: Performed By: #### L [id number] ####Jewelry Finisher: JACK ORTIZ ([id number])[facility] ([facility])[address] [place] [address] COMPREHENSIVE METABOLIC PANE Eduardo 11-30-2024 Albumin [Mass/Vol] 2.8 g/dL Low 3.5-5.0 [facility] Comment on above: Performed By: #### L [id number] ####Jewelry Finisher: JACK ORTIZ ([id number])[facility])[address] [place] [address] ALP [Catalytic activity/Vol] 106 U/L Normal 40-150 [facility] Comment on above: Performed By: #### L [id number] ####Jewelry Finisher: JACK ORTIZ ([id number])[facility] ([facility])[address] [place] [address] ALT [Catalytic activity/Vol] 14 U/L Normal <40 [facility] Comment on above: Performed By: #### L AB17 ####Jewelry Finisher: JACK ORTIZ ([id number])[facility])[address] [place] [address] Anion gap [Moles/Vol] 11 mmol/L Normal 3-13 [facility] Comment on above: Performed By: #### L AB17 ####Jewelry Finisher: JACK ORTIZ ([id number])[facility])[address] [place] [address] AST [Catalytic activity/Vol] 61 U/L High <34 [facility] Comment on above: Result Comment: TCSi gnificant interference from hemolysis. Result integrity compromised. Interpret with caution. Performed By: #### L AB17 ####Jewelry Finisher: JACK ORTIZ ([id number])[facility])[address] [place] [address] Bilirubin [Mass/Vol] 1.0 mg/dL Normal <1.2 [facility] Comment on above: Performed By: #### L [id number] ####Jewelry Finisher: JACK ORTIZ ([id number])[facility] ([facility])[address] [place] [address] Calcium [Mass/Vol] 7.5 mg/dL Low 8.4-10.2 [facility] Comment on above: Performed By: #### L [id number] ####Jewelry Finisher: JACK ORTIZ ([id number])[facility] ([facility])[address] [place] [address] Chloride [Moles/Vol] 98 mmol/L Normal 98-107 [facility] Comment on above: Performed By: #### L AB17 ####Jewelry Finisher: JACK ORTIZ ([id number])[facility] ([facility])[address] [place] [address] CO2 [Moles/Vol] 22 mmol/L Normal 22-29 [facility] Comment on above: Performed By: #### L AB17 ####Jewelry Finisher: JACK ORTIZ ([id number])[facility])[address] [place] [address] Creatinine [Mass/Vol] 0.66 mg/dL Low 0.72-1.25 [facility] Comment on above: Performed By: #### L AB17 ####Jewelry Finisher: JACK ORTIZ ([id number])[facility])[address] [place] [address] GLOMERULAR FILTRATION RATE ML/MIN/1.73 SQ M.PREDICTED >90.0 Normal >60.0 [facility] Comment on above: Result Comment: Calc ulation based on the Chronic Kidney Disease Epidemiology Collaboration (CKD-EPI) equation refit without adjustment for race Performed By: #### L AB17 ####Jewelry Finisher: JACK ORTIZ ([id number])[facility])[address] [place] [address] Glucose [Mass/Vol] 92 mg/dL Normal 74-100 [facility] Comment on above: Performed By: #### L [id number] ####Jewelry Finisher: JACK ORTIZ ([id number])[facility])[address] [place] [address] Potassium [Moles/Vol] 4.4 mmol/L Normal 3.5-5.1 [facility] Comment on above: Result Comment: TCSi gnificant interference from hemolysis. Result integrity compromised. Interpret with caution. Performed By: #### L AB17 ####Jewelry Finisher: JACK ORTIZ ([id number])[facility])[address] [place] [address] Protein [Mass/Vol] 6.3 g/dL Low 6.4-8.3 [facility] Comment on above: Result Comment: TCPo tential interference from hemolysis Performed By: #### L AB17 ####Jewelry Finisher: JACK ORTIZ ([id number])[facility])[address] [place] [address] Sodium [Moles/Vol] 131 mmol/L Low 136-145 [facility] Comment on above: Performed By: #### L AB17 ####Jewelry Finisher: JACK ORTIZ ([id number])[address] Urea nitrogen [Mass/Vol] 13 mg/dL Normal 8-21 [facility] Comment on above: Performed By: #### L AB17 ####Jewelry Finisher: JACK ORTIZ ([id number])[facility])[address] [place] [address] CT ABDOMEN PELVIS ANGIOGRAM W AND/OR WO IV CONTRASTon 11-30-2024 CT ABDOMEN PELVIS ANGIOGRAM W AND/OR WO IV CONTRAST Normal [facility] CT Abdomen and Pelvis W cont rast [...] convincing extravasation of contrast into bowel lumen. [facility] Dev Queen MD - 11/30/2024 Patient [...] Electronically Signed Date/Time: 11/30/2024 7:33 PM EDT [facility] Radiology Study observation (narrative) [facility] CT Abdomen and Pelvis W cont rast IVOrdered By: Dev Queen on 11-30-2024 [facility] Work Phone: Comprehensive metabolic 1998 panelOrdered By: Ani Hodges on 11-30-2024 Albumin [Mass/Vol] 2.8 g/dL Low 3.5 - 5.0 g/dL [facility] ALP [Catalytic activity/Vol] 106 U/L 40 - 150 U/L [facility] ALT [Catalytic activity/Vol] 14 [facility] Anion gap [Moles/Vol] 11 mmol/L 3 - 13 mmol/L [facility] AST [Catalytic activity/Vol] 61 U/L High [facility] - 34 U/L [facility] Comment on above: TC Significant interference from hemolysis. Result integrity compromised. Interpret with caution. Bilirubin [Mass/Vol] 1 [facility] Calcium [Mass/Vol] 7.5 mg/dL Low 8.4 - 10. 2 mg/dL [facility] Chloride [Moles/Vol] 98 mmol/L 98 - 10 7 mmol/L [facility] CO2 [Moles/Vol] 22 mmol/L 22 - 29 mmol/L [facility] Creatinine [Mass/Vol] 0.66 mg/dL Low 0.72 - 1.25 mg/dL [facility] GFR/1.73 sq M.predicted (S/P/Bld) [Vol rate/Area] - PINF [facility] Comment on above: Calculation based on the Chronic Kidney Disease Epidemiology Collaboration (CKD-EPI) equation refit without adjustment for race Glucose [Mass/Vol] 92 mg/dL 74 - 100 mg/dL [facility] Interpretation and review of laboratory results Abnormal [facility] Potassium [Moles/Vol] 4.4 mmol/L 3.5 - 5.1 mmol/L [facility] Comment on above: TC Significant interference from hemolysis. Result integrity compromised. Interpret with caution. Protein [Mass/Vol] 6.3 g/dL Low 6.4 - 8.3 g/dL [facility] Comment on above: TC Potential interference from hemolysis Sodium [Moles/Vol] 131 mmol/L Low 136 - 145 mmol/L [facility] Urea nitrogen [Mass/Vol] 13 mg/dL 8 - 21 mg/dL [facility] ED Nursing Noteon 11-30-2024 ED Nursing Note Phoned [facility] T1 to [facility] e report. Nurse busy, asked that I call back later. Normal [facility] HEMOGLOBIN AND HEMATOCRIT, B LOODon 11-30-2024 Hematocrit (Bld) [Volume fraction] 31.9 % Low 40.0-52.0 [facility] Comment on above: Performed By: #### L [id number] ####Jewelry Finisher: JACK ORTIZ ([phone])[address] Hemoglobin (Bld) [Mass/Vol] 10.1 g/dL Low 13.0-18.0 [facility] Comment on above: Performed By: #### L [id number] ####Jewelry Finisher: JACK ORTIZ ([id number])[address] Hemoglobin (Bld) [Mass/Vol]O rdered By: Chhaya Josue on 11-30-2024 Hematocrit (Bld) [Volume fraction] 31.9 % Low 40.0 - 52.0 % [facility] Interpretation and review of laboratory results Abnormal [facility] LACTIC ACID WITH REFLEXon Lactate [Moles/Vol] 1.4 mmol/L Normal 0.5-2.2 [facility] Comment on above: Performed By: #### L [id number] ####Jewelry Finisher: JACK ORTIZ ([id number])[facility])[address] [place] [address] Lactate [Moles/Vol] 2.9 mmol/L High 0.5-2.2 [facility] Comment on above: Performed By: #### L [id number] ####Jewelry Finisher: JACK ORTIZ ([id number])[facility]USMain TREJOSANDRA BETITOTMAN (SWRLAB)[address] [place] [id number] Lactate [Moles/Vol] 3.5 mmol/L High 0.5-2.2 [facility] Comment on above: Performed By: #### L [id number] ####Jewelry Finisher: JACK ORTIZ ([id number])[facility] (RL[facility])[address] [place] [id number] LIPASEon 11-30-2024 Lipase [Catalytic activity/Vol] 38 U/L Normal <55 [facility] Comment on above: Performed By: #### L AB43, LAB99, LAB15 ####Jewelry Finisher: JACK ORTIZ ([id number])[facility]AMPUSMain SANDRABREANNA CISSETMAN (SWRLAB)[address] [place] [id number] Laboratory - Chemistry and C hemistry - challengeon 11-30-2024 Lactate [Moles/Vol] 1.4 mmol/L 0.5 - 2. 2 mmol/L [facility] Lipase [Catalytic activity/Vol] 38 U/L NINF - 55 U/L [facility] Lactate [Moles/Vol] 2.9 mmol/L High 0.5 - 2. 2 mmol/L [facility] Lactate [Moles/Vol] 3.5 mmol/L High 0.5 - 2. 2 mmol/L [facility] Laboratory - Drug toxicology on 11-30-2024 Acetaminophen [Mass/Vol] ug/mL Low 10.0 - 30.0 ug/mL [facility] Laboratory - Hematology and Cell countsOrdered By: Chhaya Josue on 11-30-2024 Hemoglobin (Bld) [Mass/Vol] 10.1 g/dL Low 13.0 - 18.0 g/dL [facility] Lipase [Catalytic activity/V ol]on 11-30-2024 Interpretation and review of laboratory results Normal [facility] No Panel Informationon 11-30 Interpretation and review of laboratory results Normal [facility] [place] Interpretation and review of laboratory results Abnormal [facility] Interpretation and review of laboratory results Abnormal [facility] AMMONIAon 11-29-2024 Ammonia (P) [Moles/Vol] 28 umol/L Normal 18-72 [facility] Comment on above: Performed By: #### L [id number] ####Jewelry Finisher: JACK ORTIZ ([id number])[facility]AMPUSMain GUEVARA (SWRLAB)[address] [place] [id number] APTTon 11-29-2024 aPTT Coag (Bld) [Time] 26.8 s Normal 20.0-30.5 [facility] Comment on above: Result Comment: PAGE Menezes COMMENTS:NOTE: The therapeutic time for Heparin anticoagulation, based on Xa activity inhibition, is an APTT of 46-80 seconds. Performed By: #### L [id number], [id number] ####Jewelry Finisher: JACK ORTIZ ([id number])[facility]AMPUSMain GUEVARA (SWRLAB)[address] [place] [id number] BLOOD CULTUREon 11-29-2024 Bacteria identified Cx Nom (Bld) Normal [facility] Comment on above: Performed By: #### L [id number] ####Jewelry Finisher: JACK ORTIZ ([id number])[facility] (SAC[facility])[address] [place] [address] BLOOD GAS, VENOUS (SWR AND S HC)on 11-29-2024 AMOUNT OF OXYGEN 0 Normal [facility] Comment on above: Performed By: #### L [id number] ####Jewelry Finisher: JACK ORTIZ ([id number])[facility]AMPUSMain GUEVARA (SWRLAB)[address] [place] [id number] BASE EXCESS (MMOL/L) IN VENOUS BLOOD 2.0 mmol/L Normal -3.0-3.0 [facility] Comment on above: Performed By: #### L [id number] ####Jewelry Finisher: JACK ORTIZ ([id number])DEANDRE FLORES RITTMAN (SWRLAB)[address] [place] [address] [place] CARBON DIOXIDE (MM HG) IN VENOUS BLOOD 33 mm(Hg) Low 40-55 [facility] Comment on above: Performed By: #### L [id number] ####Jewelry Finisher: JACK ORTIZ ([id number])[facility]USMain FLORES RITTMAN (SWRLAB)[address] [place] [address] [place] CO2 [Moles/Vol] 26.0 mmol/L Normal 24.0-28.0 [facility] Comment on above: Performed By: #### L [id number] ####Jewelry Finisher: JACK ORTIZ ([id number])[facility]AMPUSMain FLORES RITTMAN (SWRLAB)[address] [place] [address] [place] HCO3 (Bld) [Moles/Vol] 25.0 mmol/L Normal 23.0-27.0 [facility] Comment on above: Performed By: #### L [id number] ####Jewelry Finisher: JACK ORTIZ ([id number])[facility]USMain FLORES RITTMAN (SWRLAB)[address] [place] [id number] OXYGEN (MM HG) IN VENOUS BLOOD 88 mm(Hg) Normal [facility] Comment on above: Performed By: #### L [id number] ####Jewelry Finisher: JACK ORTIZ ([id number])[facility]AMPUSMain FLORES RITTMAN (SWRLAB)[address] [place] [address] [place] OXYGEN SATURATION (%) IN VENOUS BLOOD 97.0 % High 60.0-80.0 [facility] Comment on above: Performed By: #### L [id number] ####Jewelry Finisher: JACK ORTIZ ([id number])[facility]USMain FLORES RITTMAN (SWRLAB)[address] [place] [address] [place] pH (Bld) 7.487 [pH] High 7.310-7.410 [facility] Comment on above: Performed By: #### L [id number] ####Jewelry Finisher: JACK ORTIZ ([id number])DEANDRE MERRILLAN (SWRLAB)[address] [place] [id number] SOURCE OF OXYGEN None (Room Air) [facility] Comment on above: Performed By: #### L [id number] ####Jewelry Finisher: JACK ORTIZ ([id number])[facility] MERRILLAN (SWRLAB)[address] [place] [id number] CBC W Auto Differential pane l (Bld)Ordered By: Monica Daily on 11-29-2024 Basophils (Bld) [#/Vol] 0.1 10*3/uL 0.0 - 0.2 10*3/uL [facility] Basophils/100 WBC (Bld) 1 % 0.0 - 2.0 % [facility] Eosinophils (Bld) [#/Vol] 0 10*3/uL 0.0 - 0.5 10*3/uL [facility] Eosinophils/100 WBC (Bld) 0.1 % 0.0 - 6.0 % [facility] Erythrocyte distribution width (RBC) [Ratio] 23.2 % High 11.5 - 15.0 % [facility] Comment on above: Moderate Anisocytosi s seen on slide. Slight stomatocytes seen on slide. Slight ovalocytes seen on slide Hematocrit (Bld) [Volume fraction] 40.1 % 40.0 - 52.0 % [facility] Hemoglobin (Bld) [Mass/Vol] 12.6 g/dL Low 13.0 - 18.0 g/dL [facility] Immature granulocytes (Bld) [#/Vol] 0 10*3/uL NINF - 0.1 10*3/uL [facility] Immature granulocytes/100 WBC (Bld) 0.3 % 0.0 - 2.0 % [facility] Interpretation and review of laboratory results Abnormal [facility] Lymphocytes (Bld) [#/Vol] 1.2 10*3/uL 1.0 - 4.3 10*3/uL [facility] Lymphocytes/100 WBC (Bld) 13.7 % Low 15.0 - 45.0 % [facility] MCH (RBC) [Entitic mass] 22.6 pg Low 26.0 - 34.0 pg [facility] MCHC (RBC) [Mass/Vol] 31.4 % 30.5 - 36.0 % [facility] MCV (RBC) [Entitic vol] 71.9 fL Low 77.0 - 99.0 fL [facility] Monocytes (Bld) [#/Vol] 0.5 10*3/uL 0.0 - 0.9 10*3/uL [facility] Monocytes/100 WBC (Bld) 6.2 % 5.0 - 13.0 % [facility] Neutrophils (Bld) [#/Vol] 6.8 10*3/uL 1.8 - 7.5 10*3/uL [facility] Neutrophils/100 WBC (Bld) 78.7 % 38.0 - 82.0 % [facility] Nucleated RBC/100 WBC (Bld) [Ratio] 0 % [facility] Platelet mean volume (Bld) [Entitic vol] 9 fL 9.0 - 12.7 fL [facility] Comment on above: MPV is a calculated measurement using platelet volume ratio Platelets (Bld) [#/Vol] 321 10*3/uL 140 - 440 10*3/uL [facility] RBC (Bld) [#/Vol] 5.58 10*6/uL 4.40 - 5.9 0 10*6/uL [facility] WBC (Bld) [#/Vol] 8.7 10*3/uL 3.6 - 10.7 10*3/uL [facility] CBC WITH AUTO DIFFERENTIALon 11-29-2024 Basophils (Bld) [#/Vol] 0.1 10*3/uL Normal 0.0-0.2 [facility] Comment on above: Performed By: #### L [id number] ####Jewelry Finisher: JACK ORTIZ ([id number])[facility]USMain GUEVARA ([facility])[address] [place] [id number] Basophils/100 WBC (Bld) 1.0 % Normal 0.0-2.0 [facility] Comment on above: Performed By: #### L [id number] ####Jewelry Finisher: JACK ORTIZ ([id number])[facility]AMPUSMain GUEVARA ([facility])[address] [place] [id number] Eosinophils (Bld) [#/Vol] 0.0 10*3/uL Normal 0.0-0.5 [facility] Comment on above: Performed By: #### L [id number] ####Jewelry Finisher: JACK ORTIZ ([id number])[facility]AMPUSMain FLORES RITTMAN (SWRLAB)[address] [place] [id number] Eosinophils/100 WBC (Bld) 0.1 % Normal 0.0-6.0 [facility] Comment on above: Performed By: #### L [id number] ####Jewelry Finisher: JACK ORTIZ ([id number])[facility]USMain FLORES RITTMAN (SWRLAB)[address] [place] [id number] Erythrocyte distribution width (RBC) [Ratio] 23.2 % High 11.5-15.0 [facility] Comment on above: Result Comment: Mode rate Anisocytosis seen on slide.Slight stomatocytes seen on slide.Slight ovalocytes seen on slide Performed By: #### L [id number] ####Jewelry Finisher: JACK ORTIZ ([id number])[facility]USMain FLORES RITTMAN (SWRLAB)[address] [place] [id number] Hematocrit (Bld) [Volume fraction] 40.1 % Normal 40.0-52.0 [facility] Comment on above: Performed By: #### L [id number] ####Jewelry Finisher: JACK ORTIZ ([id number])[facility]USMain FLORES RITTMAN (SWRLAB)[address] [place] [id number] Hemoglobin (Bld) [Mass/Vol] 12.6 g/dL Low 13.0-18.0 [facility] Comment on above: Performed By: #### L [id number] ####Jewelry Finisher: JACK ORTIZ ([id number])[facility]USMain FLORES RITTMAN (SWRLAB)[address] [place] [id number] IMMATURE GRANS % 0.3 % Normal 0.0-2.0 [facility] Comment on above: Performed By: #### L [id number] ####Jewelry Finisher: JACK ORTIZ ([id number])[facility]USMain FLORES RITTMAN (SWRLAB)[address] [place] [id number] IMMATURE GRANS ABSOLUTE 0.0 10*3/uL Normal <0.1 [facility] Comment on above: Performed By: #### L [id number] ####Jewelry Finisher: JACK ORTIZ ([id number])[facility]USMain FLORES RITTMAN (SWRLAB)[address] [place] [id number] Lymphocytes (Bld) [#/Vol] 1.2 10*3/uL Normal 1.0-4.3 [facility] Comment on above: Performed By: #### L [id number] ####Jewelry Finisher: JACK ORTIZ ([id number])[facility]USMain FLORES RITTMAN (SWRLAB)[address] [place] [id number] Lymphocytes/100 WBC (Bld) 13.7 % Low 15.0-45.0 [facility] Comment on above: Performed By: #### L [id number] ####Jewelry Finisher: JACK ORTIZ ([id number])[facility]USMain FLORES RITTMAN (SWRLAB)[address] [place] [id number] MCH (RBC) [Entitic mass] 22.6 pg Low 26.0-34.0 [facility] Comment on above: Performed By: #### L [id number] ####Jewelry Finisher: JACK ORTIZ ([id number])[facility]USMain FLORES RITTMAN (SWRLAB)[address] [place] [id number] MCHC 31.4 % Normal 30.5-36.0 [facility] Comment on above: Performed By: #### L [id number] ####Jewelry Finisher: JACK ORTIZ ([id number])[facility]USMain FLORES RITTMAN (SWRLAB)[address] [place] [id number] MCV (RBC) [Entitic vol] 71.9 fL Low 77.0-99.0 [facility] Comment on above: Performed By: #### L [id number] ####Jewelry Finisher: JACK ORTIZ ([id number])DEANDRE FLORES RITTMAN (SWRLAB)[address] [place] [address] [place] Monocytes (Bld) [#/Vol] 0.5 10*3/uL Normal 0.0-0.9 [facility] Comment on above: Performed By: #### L [id number] ####Jewelry Finisher: JACK ORTIZ ([id number])[facility]USMain FLORES RITTMAN (SWRLAB)[address] [place] [address] [place] Monocytes/100 WBC (Bld) 6.2 % Normal 5.0-13.0 [facility] Comment on above: Performed By: #### L [id number] ####Jewelry Finisher: JACK ORTIZ ([id number])[facility]AMPUSMain FLORES RITTMAN (SWRLAB)[address] [place] [address] [place] NEUTROPHILS ABSOLUTE 6.8 10*3/uL Normal 1.8-7.5 [facility] Comment on above: Performed By: #### L [id number] ####Jewelry Finisher: JACK ORTIZ ([id number])[facility]USMain FLORES RITTMAN (SWRLAB)[address] [place] [address] [place] Neutrophils/100 WBC (Bld) 78.7 % Normal 38.0-82.0 [facility] Comment on above: Performed By: #### L [id number] ####Jewelry Finisher: JACK ORTIZ ([id number])[facility]USMain FLORES RITTMAN (SWRLAB)[address] [place] [address] [place] NRBC 0.0 /100 WBCs Normal 0.0-2.0 [facility] Comment on above: Performed By: #### L [id number] ####Jewelry Finisher: JACK ORTIZ ([id number])[facility]USMain FLORES RITTMAN (SWRLAB)[address] [place] [address] [place] Platelet mean volume (Bld) [Entitic vol] 9.0 fL Normal 9.0-12.7 [facility] Comment on above: Result Comment: MPV is a calculated measurement using platelet volume ratio Performed By: #### L [id number] ####Jewelry Finisher: JACK ORTIZ ([id number])[facility]USMain FLORES RITTMAN (SWRLAB)[address] [place] [id number] Platelets (Bld) [#/Vol] 321 10*3/uL Normal 140-440 [facility] Comment on above: Performed By: #### L [id number] ####Jewelry Finisher: JACK ORTIZ ([id number])[facility]USMain CISSETMAN (SWRLAB)[address] [place] [id number] RBC (Bld) [#/Vol] 5.58 10*6/uL Normal 4.40-5.90 [facility] Comment on above: Performed By: #### L [id number] ####Jewelry Finisher: JACK ORTIZ ([id number])[facility]USMain FLORES RITTMAN (SWRLAB)[address] [place] [id number] WBC (Bld) [#/Vol] 8.7 10*3/uL Normal 3.6-10.7 [facility] Comment on above: Performed By: #### L [id number] ####Jewelry Finisher: JACK ORTIZ ([id number])[facility]USMain FLORES RITTMAN (SWRLAB)[address] [place] [id number] COMPREHENSIVE METABOLIC PANE Eduardo 11-29-2024 Albumin [Mass/Vol] 3.2 g/dL Low 3.5-5.0 [facility] Comment on above: Performed By: #### L [id number] ####Jewelry Finisher: JACK ORTIZ ([id number])[facility]USMain FLORES RITTMAN (SWRLAB)[address] ALP [Catalytic activity/Vol] 124 U/L Normal 40-150 [facility] Comment on above: Performed By: #### L [id number] ####Jewelry Finisher: JACK ORTIZ ([id number])[facility] CAMPUSA SANDRA RITTMAN (SWRLAB)[address] [place] [address] [place] ALT [Catalytic activity/Vol] 19 U/L Normal <40 [facility] Comment on above: Performed By: #### L [id number] ####Jewelry Finisher: JACK ORTIZ ([id number])[facility] CAMPUSA SANDRA RITTMAN (SWRLAB)[address] Anion gap [Moles/Vol] 19 mmol/L High 3-13 [facility] Comment on above: Performed By: #### L [id number] ####Jewelry Finisher: JACK ORTIZ ([id number])[facility] CAMPUSA SANDRA RITTMAN (SWRLAB)[address] AST [Catalytic activity/Vol] 55 U/L High <34 [facility] Comment on above: Performed By: #### L [id number] ####Jewelry Finisher: JACK ORTIZ ([id number])[facility] CAMPUSA SANDRA RITTMAN (SWRLAB)[address] [place] [address] [place] Bilirubin [Mass/Vol] 0.4 mg/dL Normal <1.2 [facility] Comment on above: Performed By: #### L [id number] ####Jewelry Finisher: JACK ORTIZ ([id number])[facility] CAMPUSA SANDRA RITTMAN (SWRLAB)[address] [place] [address] [place] Calcium [Mass/Vol] 8.0 mg/dL Low 8.4-10.2 [facility] Comment on above: Performed By: #### L [id number] ####Jewelry Finisher: JACK ORTIZ ([id number])[facility] CAMPUSA SANDRA RITTMAN (SWRLAB)[address] [place] [address] [place] Chloride [Moles/Vol] 100 mmol/L Normal 98-107 [facility] Comment on above: Performed By: #### L [id number] ####Jewelry Finisher: JACK ORTIZ ([id number])[facility] CAMPUSA SANDRA RITTMAN (SWRLAB)[address] [place] [address] [place] CO2 [Moles/Vol] 26 mmol/L Normal 22-29 [facility] Comment on above: Performed By: #### L [id number] ####Jewelry Finisher: JACK ORTIZ ([id number])[facility]AMPUSMain FLORES RITTMAN (SWRLAB)[address] [place] [address] [place] Creatinine [Mass/Vol] 0.76 mg/dL Normal 0.72-1.25 [facility] Comment on above: Performed By: #### L [id number] ####Jewelry Finisher: JACK ORTIZ ([phone])[facility]AMPUSMain FLORES RITTMAN (SWRLAB)[address] [place] [id number] GLOMERULAR FILTRATION RATE ML/MIN/1.73 SQ M.PREDICTED >90.0 Normal >60.0 [facility] Comment on above: Result Comment: Calc ulation based on the Chronic Kidney Disease Epidemiology Collaboration (CKD-EPI) equation refit without adjustment for race Performed By: #### L [id number] ####Jewelry Finisher: JACK ORTIZ ([id number])[facility]AMPUSMain FLORES RITTMAN (SWRLAB)[address] [place] [address] [place] Glucose [Mass/Vol] 122 mg/dL High 74-100 [facility] Comment on above: Performed By: #### L [id number] ####Jewelry Finisher: JACK ORTIZ ([id number])[facility]USMain FLORES RITTMAN (SWRLAB)[address] [place] [address] [place] Potassium [Moles/Vol] 2.6 mmol/L Critically low 3.5-5.1 [facility] Comment on above: Result Comment: [facility] potassium values may be up to 0.5 mmol/L lower than serum values. Performed By: #### L [id number] ####Jewelry Finisher: JACK ORTIZ ([id number])[facility] CAMPUSMain TREJOSANDRA RITTMAN (SWRLAB)[address] [place] [id number] Protein [Mass/Vol] 6.9 g/dL Normal 6.4-8.3 [facility] Comment on above: Performed By: #### L [id number] ####Jewelry Finisher: JACK ORTIZ ([id number])[facility]USMain FLORES RITTMAN (SWRLAB)[address] [place] [id number] Sodium [Moles/Vol] 145 mmol/L Normal 136-145 [facility] Comment on above: Performed By: #### L [id number] ####Jewelry Finisher: JACK ORTIZ ([id number])[facility]USMain FLORES RITTMAN (SWRLAB)[address] [place] [id number] Urea nitrogen [Mass/Vol] 19 mg/dL Normal 8-21 [facility] Comment on above: Performed By: #### L [id number] ####Jewelry Finisher: JACK ORTIZ ([id number])[facility]DR[facility]AN[facility] (SWRLAB)[address] [place] [id number] CT HEAD WO IV CONTRASTon CT HEAD WO IV CONTRAST Normal [facility] CT Head WO contraston 2024 No acute intracrania l hemorrhage or mass effect. Report Dictated on Electronically Signed By: Renato Rascon MD Electronically Signed Date/Time: 11/29/2024 6:49 PM [facility] 1980 [id number] Exam Date/Time: 11/29/2024 18:42 Procedure: CT HEAD [...] Electronically Signed Date/Time: 11/29/2024 6:49 PM EDT [facility] Radiology Study observation (narrative) [facility] CT Head WO contrastOrdered B y: Renato Rascon on 11-29-2024 [facility] Fengxiafei Work Phone: CT ORBITS/SELLA/EAR WO IV CO NTRASTon 11-29-2024 CT ORBITS/SELLA/EAR WO IV CONTRAST Normal [facility] CT Orbit WO contraston 11-29 No acute abnormality of the orbits. Report Dictated on Electronically Signed By: Renato Rascon MD Electronically Signed Date/Time: 11/29/2024 6:55 PM EDT [facility] Patient Name: EL SMITH : [...] 11/29/2024 [facility] Name: [facility] SMITH : 1980 [id number] Exam Date/Time: 11/29/2024 18:43 Procedure: CT ORBITS/SELLA/EAR [...] Electronically Signed Date/Time: 11/29/2024 6:55 PM EDT [facility] Radiology Study observation (narrative) [facility] Comprehensive metabolic 1998 panelon 11-29-2024 Albumin [Mass/Vol] 3.2 g/dL Low 3.5 - 5.0 g/dL [facility] ALP [Catalytic activity/Vol] 124 U/L 40 - 150 U/L [facility] ALT [Catalytic activity/Vol] 19 U/L NINF - 40 U/L [facility] Anion gap [Moles/Vol] 19 mmol/L High 3 - 13 mmol/L [facility] AST [Catalytic activity/Vol] 55 U/L High NINF - 34 U/L [facility] Bilirubin [Mass/Vol] 0.4 mg/dL NINF - 1.2 mg/dL [facility] Calcium [Mass/Vol] 8 mg/dL Low 8.4 - 10. 2 mg/dL [facility] Chloride [Moles/Vol] 100 mmol/L 98 - 10 7 mmol/L [facility] CO2 [Moles/Vol] 26 mmol/L 22 - 29 mmol/L [facility] Creatinine [Mass/Vol] 0.76 mg/dL 0.72 - 1.25 mg/dL [facility] GFR/1.73 sq M.predicted (S/P/Bld) [Vol rate/Area] - PINF [facility] Comment on above: Calculation based on the Chronic Kidney Disease Epidemiology Collaboration (CKD-EPI) equation refit without adjustment for race Glucose [Mass/Vol] 122 mg/dL High 74 - 100 mg/dL [facility] Interpretation and review of laboratory results Abnormal [facility] Potassium [Moles/Vol] 2.6 mmol/L Critically low 3.5 - 5.1 mmol/L [facility] Comment on above: Plasma potassium ema ues may be up to 0.5 mmol/L lower than serum values. Protein [Mass/Vol] 6.9 g/dL 6.4 - 8.3 g/dL [facility] Sodium [Moles/Vol] 145 mmol/L 136 - 145 mmol/L [facility] Urea nitrogen [Mass/Vol] 19 mg/dL 8 - 21 mg/dL [facility] ED Nursing Noteon 11-29-2024 ED Nursing Note Pt awake and sitting upright in bed. Mom gave him some ice water. Normal [facility] ED Nursing Note Pt continues to attempt to get out of bed frequently with security systems installer sitting outside door. States he is leaving. Advised he cannot leave at this time. Normal [facility] ED Nursing Note Normal [facility] ED Nursing Note Pt has been out of bed 2 more times. ict help desk officer standing by. Pt redirectable and returns to room. Normal [facility] ED Nursing Note Normal [facility] ED Nursing Note Normal [facility] ED Provider Noteon ED Provider Note Normal [facility] LACTIC ACID WITH REFLEXon Lactate [Moles/Vol] 4.4 mmol/L Critically high 0.5-2.2 [facility] Comment on above: Performed By: #### L [id number] ####Jewelry Finisher: JACK ORTIZ ([id number])[facility] CAMPUSMain GUEVARA (SWRLAB)[address] [place] [address] Laboratory - Chemistry and C hemistry - challengeon 11-29-2024 Lactate [Moles/Vol] 4.4 mmol/L Critically high 0.5 - 2.2 mmol/L [facility] Ammonia (P) [Moles/Vol] 28 umol/L 18 - 72 umol/L [facility] Glucose [Mass/Vol] 125 mg/dL High 70 - 100 mg/dL [facility] Laboratory - Chemistry and C hemistry - challengeOrdered By: Salina Calvo on 11-29-2024 CO2 [Moles/Vol] 26 mmol/L 24.0 - 28.0 mmol/L [facility] HCO3 (Bld) [Moles/Vol] 25 mmol/L 23.0 - 27.0 mmol/L [facility] Oxygen (Bld) [Partial pressure] 88 mm[Hg] mm(Hg) [facility] pH (Bld) 7.487 [pH] High 7.310 - 7.410 [facility] h Laboratory - Coagulationon 0 11-29-2024 PT Coag (Bld) [Time] 13 s High 9.0 - 12.0 s [facility] No Panel Informationon 11-29 Interpretation and review of laboratory results Abnormal [facility] Interpretation and review of laboratory results Normal [facility] Interpretation and review of laboratory results Abnormal [facility] Performed by: Deandre Guevara, [address] [place] [address] CLIA ID: [id number] [facility] [place] No Panel InformationOrdered By: Salina Calvo on 11-29-2024 Amount Of Oxygen 0 [facility] alth BASE EXCESS 2 mmol/L -3.0 - 3.0 mmol/L [facility] Interpretation and review of laboratory results Abnormal [facility] pCO2 33 Low [facility] Source Of Oxygen None (Room Air) [facility] PROTHROMBIN TIMEon INR Coag (PPP) [Relative time] 1.2 {INR} High 0.9-1.1 [facility] Comment on above: Result Comment: Ba mmended [...] Myocardial Infarction Performed By: #### Abdelrahman [id number], [id number] ####Jewelry Finisher: JACK ORTIZ ([id number])[facility] RITAYAAN (SWRLAB)[address] [place] [address] PT Coag (PPP) [Time] 13.0 s High 9.0-12.0 [facility] Comment on above: Performed By: #### Abdelrahman [id number], [id number] ####Jewelry Finisher: JACK ORTIZ ([id number])[facility]ABanki.ruZAIDA (SWRL[facility])[address] [place] [address] [place] PT Coag (Bld) [Time]on 11-29 INR Coag (PPP) [Relative time] 1.2 {INR} High 0.9 - 1.1 [facility] Comment on above: Recommended Anticoag ulant Therapy: [...] review of laboratory results Abnormal [facility] Vital signsOrdered By: Leah delia Calvo on 11-29-2024 Oxygen saturation in Blood 97 % High 60.0 - 80.0 % [facility] XR Chest Single viewon 11-29 No radiographic [...] consolidation. The right hemidiaphragm is mildly elevated. [facility] Chela Cleaning MD - 11/29/2024 Patient [...] Electronically Signed Date/Time: 11/29/2024 6:30 PM EDT [facility] Radiology Study observation (narrative) [facility] XR Chest Single viewOrdered By: Chela Cleaning on 11-29-2024 [facility] Work Phone: aPTT Coag (Bld) [Time]on aPTT Coag (PPP) [Time] 26.8 s 20.0 - 30.5 s [facility] Interpretation and review of laboratory results Normal [facility] NOTE: The therapeuti c time for Heparin anticoagulation, based on Xa activity inhibition, is an APTT of 46-80 seconds. [facility] 36on 11-12-2024 36 Tried to call 11/12/24 No Voice Mail Tried to call patient to schedule appt with Dr Choudhary to start at our office instead of IOP. If patient calls in when need to schedule appt With Kenrick Normal [facility] Progress Noteon 10-17-2024 Progress Note Normal [facility] Progress Noteon 09-19-2024 Progress Note Normal [facility] Progress Noteon 08-29-2024 Progress Note Normal [facility] 36on 08-14-2024 36 Will refill at time of appointment so that all scripts are on same day. He has enough meds to get him to his next appointment with me. Normal [facility] ED Nursing Noteon 08-10-2024 ED Nursing Note Pt ambulatory to ED3 with mother with c/o facial swelling first noted this morning. Pt denies exposure to any potential allergens, no new meds/foods/soaps/loti ons/detergents. Normal [facility] ED Provider Noteon ED Provider Note Normal [facility] Progress Noteon 08-01-2024 Progress Note Normal [facility] 36on 07-30-2024 36 Meds refilled. Appt is on 08/01/24 Normal [facility] Progress Noteon 07-04-2024 Progress Note Normal [facility] Progress Noteon 06-20-2024 Progress Note Normal [facility] 36on 06-07-2024 36 Spoke with patient, let him know to check with Pharmacy. Patient does have appt scheduled for 06/20/24. Normal [facility] 36 Iop patient calling to say that pharmacy didn't have his medication that was supposed to be sent a couple of days ago?? Normal [facility] Progress Noteon 06-06-2024 Progress Note Normal [facility] 36on 05-30-2024 36 Normal [facility] Progress Noteon 05-30-2024 Progress Note Normal [facility] CBC W Auto Differential pane l (Bld)on 05-28-2024 Basophils (Bld) [#/Vol] 0 10*3/uL 0.0 - 0.2 10*3/uL [facility] Basophils/100 WBC (Bld) 0.7 % 0.0 - 2.0 % [facility] Eosinophils (Bld) [#/Vol] 0 10*3/uL 0.0 - 0.5 10*3/uL [facility] Eosinophils/100 WBC (Bld) 0.9 % 0.0 - 6.0 % [facility] Erythrocyte distribution width (RBC) [Ratio] 17.1 % High 11.5 - 15.0 % [facility] Hematocrit (Bld) [Volume fraction] 28.8 % Low 40.0 - 52.0 % [facility] Hemoglobin (Bld) [Mass/Vol] 9.5 g/dL Low 13.0 - 18.0 g/dL [facility] Immature granulocytes (Bld) [#/Vol] 0 10*3/uL NINF - 0.1 10*3/uL [facility] Immature granulocytes/100 WBC (Bld) 0.4 % 0.0 - 2.0 % [facility] Interpretation and review of laboratory results Abnormal [facility] Lymphocytes (Bld) [#/Vol] 1 10*3/uL 1.0 - 4.3 10*3/uL [facility] Lymphocytes/100 WBC (Bld) 21.5 % 15.0 - 45.0 % [facility] MCH (RBC) [Entitic mass] 26.4 pg 26.0 - 34.0 pg [facility] MCHC (RBC) [Mass/Vol] 33 % 30.5 - 36.0 % [facility] MCV (RBC) [Entitic vol] 80 fL 77.0 - 99.0 fL [facility] Monocytes (Bld) [#/Vol] 0.3 10*3/uL 0.0 - 0.9 10*3/uL [facility] Monocytes/100 WBC (Bld) 6.5 % 5.0 - 13.0 % [facility] Neutrophils (Bld) [#/Vol] 3.1 10*3/uL 1.8 - 7.5 10*3/uL [facility] Neutrophils/100 WBC (Bld) 70 % 38.0 - 82.0 % [facility] Nucleated RBC/100 WBC (Bld) [Ratio] 0 % [facility] Platelet mean volume (Bld) [Entitic vol] 8.7 fL Low 9.0 - 12.7 fL [facility] Platelets (Bld) [#/Vol] 137 10*3/uL Low 140 - 440 10*3/uL [facility] RBC (Bld) [#/Vol] 3.6 10*6/uL Low 4.40 - 5.9 0 10*6/uL [facility] WBC (Bld) [#/Vol] 4.5 10*3/uL 3.6 - 10.7 10*3/uL [facility] CBC WITH AUTO DIFFERENTIALon 05-28-2024 Basophils (Bld) [#/Vol] 0.0 10*3/uL Normal 0.0-0.2 [facility] Comment on above: Performed By: #### L [id number] ####Jewelry Finisher: JACK ORTIZ ([id number])[facility])[address] [place] [address] Basophils/100 WBC (Bld) 0.7 % Normal 0.0-2.[address] [facility] Comment on above: Performed By: #### L [id number] ####Jewelry Finisher: JACK ORTIZ ([id number])[facility])[address] [place] [address] [place] Eosinophils (Bld) [#/Vol] 0.0 10*3/uL Normal 0.0-0.5 [facility] Comment on above: Performed By: #### L [id number] ####Jewelry Finisher: JACK ORTIZ ([id number])[facility])[address] [place] [address] Eosinophils/100 WBC (Bld) 0.9 % Normal 0.0-6.0 [facility] Comment on above: Performed By: #### L [id number] ####Jewelry Finisher: JACK [id number])[facility])[address] [place] [address] Erythrocyte distribution width (RBC) [Ratio] 17.1 % High 11.5-15.0 [facility] Comment on above: Performed By: #### L [id number] ####Jewelry Finisher: JACK ORTIZ ([id number])[facility])[address] [place] [address] Hematocrit (Bld) [Volume fraction] 28.8 % Low 40.0-52.0 [facility] Comment on above: Performed By: #### L [id number] ####Jewelry Finisher: JACK ORTIZ ([id number])[facility])[address] [place] [address] Hemoglobin (Bld) [Mass/Vol] 9.5 g/dL Low 13.0-18.0 [facility] Comment on above: Performed By: #### L [id number] ####Jewelry Finisher: JACK ORTIZ ([id number])[facility] ([facility])[address] [place] [address] IMMATURE GRANS % 0.4 % Normal 0.0-2.0 [facility] Comment on above: Performed By: #### L [id number] ####Jewelry Finisher: JACK ORTIZ ([id number])[facility])[address] [place] [address] IMMATURE GRANS ABSOLUTE 0.0 10*3/uL Normal <0.1 [facility] Comment on above: Performed By: #### L [id number] ####Jewelry Finisher: JACK ORTIZ ([id number])[facility])[address] [place] [address] Lymphocytes (Bld) [#/Vol] 1.0 10*3/uL Normal 1.0-4.3 [facility] Comment on above: Performed By: #### L [id number] ####Jewelry Finisher: JACK ORTIZ ([id number])[facility])[address] [place] [address] [place] Lymphocytes/100 WBC (Bld) 21.5 % Normal 15.0-45.0 [facility] Comment on above: Performed By: #### L [id number] ####Jewelry Finisher: JACK ORTIZ ([id number])[facility] ([facility])[address] [place] [address] MCH (RBC) [Entitic mass] 26.4 pg Normal 26.0-34.0 [facility] Comment on above: Performed By: #### L [id number] ####Jewelry Finisher: JACK ORTIZ ([id number])[facility] ([facility])[address] [place] [address] MCHC 33.0 % Normal 30.5-36.0 [facility] Comment on above: Performed By: #### L [id number] ####Jewelry Finisher: JACK ORTIZ ([id number])[facility] ([facility])[address] [place] [address] MCV (RBC) [Entitic vol] 80.0 fL Normal 77.0-99.0 [facility] Comment on above: Performed By: #### L [id number] ####Jewelry Finisher: JACK ORTIZ ([id number])[facility] ([facility])[address] [place] [address] Monocytes (Bld) [#/Vol] 0.3 10*3/uL Normal 0.0-0.9 [facility] Comment on above: Performed By: #### L [id number] ####Jewelry Finisher: JACK ORTIZ ([id number])[facility] ([facility])[address] [place] [address] Monocytes/100 WBC (Bld) 6.5 % Normal 5.0-13.0 [facility] Comment on above: Performed By: #### L [id number] ####Jewelry Finisher: JACK ORTIZ ([id number])[facility] ([facility])[address] [place] [address] NEUTROPHILS ABSOLUTE 3.1 10*3/uL Normal 1.8-7.5 [facility] Comment on above: Performed By: #### L [id number] ####Jewelry Finisher: JACK ORTIZ ([id number])[facility] ([facility])[address] [place] [address] Neutrophils/100 WBC (Bld) 70.0 % Normal 38.0-82.0 [facility] Comment on above: Performed By: #### L [id number] ####Jewelry Finisher: JACK ORTIZ ([id number])[facility] ([facility])[address] [place] [address] NRBC 0.0 /100 WBCs Normal 0.0-2.0 [facility] Comment on above: Performed By: #### L [id number] ####Jewelry Finisher: JACK ORTIZ ([id number])[facility] ([facility])[address] [place] [address] Platelet mean volume (Bld) [Entitic vol] 8.7 fL Low 9.0-12.7 [facility] Comment on above: Performed By: #### L [id number] ####Jewelry Finisher: JACK ORTIZ ([id number])[facility] ([facility])[address] [place] [address] Platelets (Bld) [#/Vol] 137 10*3/uL Low 140-440 [facility] Comment on above: Performed By: #### L [id number] ####Jewelry Finisher: JACK ORTIZ ([id number])[facility] ([facility])[address] [place] [address] [place] RBC (Bld) [#/Vol] 3.60 10*6/uL Low 4.40-5.90 [facility] Comment on above: Performed By: #### L [id number] ####Jewelry Finisher: JACK ORTIZ ([id number])[facility])[address] [place] [address] WBC (Bld) [#/Vol] 4.5 10*3/uL Normal 3.6-10.7 [facility] Comment on above: Performed By: #### L [id number] ####Jewelry Finisher: JACK ORTIZ ([id number])[facility])[address] [place] [address] COMPREHENSIVE METABOLIC PANE Eduardo 05-28-2024 Albumin [Mass/Vol] 2.8 g/dL Low 3.5-5.0 [facility] Comment on above: Performed By: #### L AB113, LAB17, [id number] ####Jewelry Finisher: JACK ORTIZ ([id number])[facility])[address] [place] [address] ALP [Catalytic activity/Vol] 152 U/L High 40-150 [facility] Comment on above: Performed By: #### L ABShravan, LAB17, [id number] ####Jewelry Finisher: JACK ORTIZ ([id number])[facility] ([facility])[address] [place] [address] ALT [Catalytic activity/Vol] 9 U/L Normal <40 [facility] Comment on above: Performed By: #### Abdelrahman ABShravan, LAB17, [id number] ####Jewelry Finisher: JACK ORTIZ ([id number])[facility] ([facility])[address] [place] [address] Anion gap [Moles/Vol] 9 mmol/L Normal 3-13 [facility] Comment on above: Performed By: #### L AB113, LAB17, [id number] ####Jewelry Finisher: JACK ORTIZ ([id number])[facility] ([facility])[address] [place] [address] AST [Catalytic activity/Vol] 27 U/L Normal <34 [facility] Comment on above: Performed By: #### L AB113, LAB17, [id number] ####Jewelry Finisher: JACK ORTIZ ([id number])[facility] ([facility])[address] [place] [address] Bilirubin [Mass/Vol] 1.2 mg/dL High <1.2 [facility] Comment on above: Performed By: #### L AB113, LAB17, [id number] ####Jewelry Finisher: JACK ORTIZ ([id number])[facility])[address] [place] [address] Calcium [Mass/Vol] 7.8 mg/dL Low 8.4-10.2 [facility] Comment on above: Performed By: #### Abdelrahman AB113, LAB17, [id number] ####Jewelry Finisher: JACK ORTIZ ([id number])[facility])[address] [place] [address] Chloride [Moles/Vol] 101 mmol/L Normal 98-107 [facility] Comment on above: Performed By: #### Abdelrahman ABShravan, LAB17, [id number] ####Jewelry Finisher: JACK ORTIZ ([id number])[facility])[address] [place] [address] CO2 [Moles/Vol] 23 mmol/L Normal 22-29 [facility] Comment on above: Performed By: #### Abdelrahman GOMEZ, LAB17, [id number] ####Jewelry Finisher: JACK ORTIZ ([id number])[facility])[address] [place] [address] Creatinine [Mass/Vol] 0.53 mg/dL Low 0.72-1.25 [facility] Comment on above: Performed By: #### Abdelrahman ABShravan, LAB17, [id number] ####Jewelry Finisher: JACK ORTIZ ([id number])[facility] ([facility])[address] [place] [address] GLOMERULAR FILTRATION RATE ML/MIN/1.73 SQ M.PREDICTED >90.0 Normal >60.0 [facility] Comment on above: Result Comment: Calc ulation based on the Chronic Kidney Disease Epidemiology Collaboration (CKD-EPI) equation refit without adjustment for race Performed By: #### L ABShravan, LAB17, [id number] ####Jewelry Finisher: JACK ORTIZ ([id number])[facility])[address] [place] [address] [place] Glucose [Mass/Vol] 86 mg/dL Normal 74-100 [facility] Comment on above: Performed By: #### L ABShravan, LAB17, [id number] ####Jewelry Finisher: JACK ORTIZ ([id number])[facility] ([facility])[address] [place] [address] Potassium [Moles/Vol] 3.1 mmol/L Low 3.5-5.1 [facility] Comment on above: Result Comment: [facility] potassium values may be up to 0.5 mmol/L lower than serum values. Performed By: #### L AB113, LAB17, [id number] ####Jewelry Finisher: JACK ORTIZ ([id number])[facility] ([facility])[address] [place] [address] Protein [Mass/Vol] 5.6 g/dL Low 6.4-8.3 [facility] Comment on above: Performed By: #### L AB113, LAB17, [id number] ####Jewelry Finisher: JACK ORTIZ ([id number])[facility])[address] [place] [address] Sodium [Moles/Vol] 133 mmol/L Low 136-145 [facility] Comment on above: Performed By: #### L AB113, LAB17, [id number] ####Jewelry Finisher: JACK ORTIZ ([id number])[facility] ([facility])[address] [place] [address] Urea nitrogen [Mass/Vol] 17 mg/dL Normal 8-21 [facility] Comment on above: Performed By: #### L AB113, LAB17, [id number] ####Jewelry Finisher: JACK ORTIZ ([id number])[facility])[address] [place] [address] Comprehensive metabolic 1998 panelon 05-28-2024 Albumin [Mass/Vol] 2.8 g/dL Low 3.5 - 5.0 g/dL [facility] ALP [Catalytic activity/Vol] 152 U/L High 40 - 150 U/L [facility] ALT [Catalytic activity/Vol] 9 U/L NINF - 40 U/L [facility] Anion gap [Moles/Vol] 9 mmol/L 3 - 13 mmol/L [facility] AST [Catalytic activity/Vol] 27 U/L NINF - 34 U/L [facility] Bilirubin [Mass/Vol] 1.2 mg/dL High NINF - 1.2 mg/dL [facility] Calcium [Mass/Vol] 7.8 mg/dL Low 8.4 - 10. 2 mg/dL [facility] Chloride [Moles/Vol] 101 mmol/L 98 - 10 7 mmol/L [facility] CO2 [Moles/Vol] 23 mmol/L 22 - 29 mmol/L [facility] Creatinine [Mass/Vol] 0.53 mg/dL Low 0.72 - 1.25 mg/dL [facility] GFR/1.73 sq M.predicted (S/P/Bld) [Vol rate/Area] - PINF [facility] Comment on above: Calculation based on the Chronic Kidney Disease Epidemiology Collaboration (CKD-EPI) equation refit without adjustment for race Glucose [Mass/Vol] 86 mg/dL 74 - 100 mg/dL [facility] Potassium [Moles/Vol] 3.1 mmol/L Low 3.5 - 5.1 mmol/L [facility] Comment on above: Plasma potassium ema ues may be up to 0.5 mmol/L lower than serum values. Protein [Mass/Vol] 5.6 g/dL Low 6.4 - 8.3 g/dL [facility] Sodium [Moles/Vol] 133 mmol/L Low 136 - 145 mmol/L [facility] Urea nitrogen [Mass/Vol] 17 mg/dL 8 - 21 mg/dL [facility] ED Nursing Noteon 05-28-2024 ED Nursing Note Patient signed AMA form, witnessed by this RN and Dr. Faria at bedside. Normal [facility] ED Nursing Note Pt taken to room 47 to change and then leave AMA Normal [facility] ED Nursing Note Green slip discontinued by Dr. Faria. Normal [facility] ED Nursing Note Dr. Faria at bedside . Pt leaving AMA. Normal [facility] ED Nursing Note Patient now refusing detox Dr Faria aware and is at bedside now. Normal [facility] ED Nursing Note Dr. Faria at bedside . Notified patient does not want detox. Normal [facility] ED Nursing Note Patient refusing to sign detox rules. States he does not want detox, just wanted his heart to calm down. Normal [facility] ED Nursing Note In for transport Normal [facility] ED Nursing Note Patient respirations even and unlabored. No acute distress noted. Steady gait with ambulation. Normal [facility] ED Nursing Note Pt up to bathroom Normal [facility] ED Nursing Note Patient sitting up i n bed, eating lunch. Visitor at bedside. Normal [facility] ED Nursing Note Food tray delivered Normal [facility] ED Nursing Note Report from DESIREE Zamora. Normal [facility] ED Nursing Note Visitor in room with pt Normal [facility] ED Nursing Note Physician in room with pt Normal [facility] ED Nursing Note Tech Ching in room t o replace tele leads Normal [facility] ED Nursing Note Breakfast tray delivered to pt Normal [facility] ED Nursing Note Ok to update his mother Ruth [phone]. Normal [facility] ED Nursing Note Rn Lalito in room Normal [facility] ED Nursing Note Tech Ching in room t o get labs on pt and replace tele monitor Normal [facility] ED Nursing Note RN Lalito in room Normal [facility] ED Nursing Note Report to Lalito INGRAM Normal [facility] ED Nursing Note Provider in room Normal [facility] ED Nursing Note Mundo RN at bedside Normal [facility] ED Nursing Note Kayleen RN at bedside for labs Normal [facility] ED Nursing Note Green slip on paper chart. Normal [facility] ED Nursing Note Normal [facility] ED Nursing Note Pt has pads on the rail for seizure precautions. Normal [facility] ED Nursing Note Bedside report given to Mundo RN and Kayleen RN. Pt placed on tele monitor in room 55 Normal [facility] ED Nursing Note Pt brought from room 39 to room 55 via bed stretcher w/ RN Mellisa and protective service. Pt transferred to bed 55 by Rns. Pt has 1 bag upon arrival to the unit. Normal [facility] ED Nursing Note Protective service a t bedside with this RN. Pt changed into 2 gowns. Skin assessment competed. Belongings secured. Pt wanded. Pt medicated with ativan for CIWA score. Normal [facility] ED Nursing Note Pt green slipped - Yoanna dry pan charger nurse aware Normal [facility] ED Nursing Note Dr Doherty at bedside to evaluate pt Normal [facility] ED Nursing Note Normal [facility] ED Nursing Note Pt settled back into bed, pt found to be talking in his sleep trying to get up. Tele leads fixed again. Normal [facility] Laboratory - Chemistry and C hemistry - challengeon 05-28-2024 Magnesium [Mass/Vol] 1.5 mg/dL Low 1.6 - 2 .6 mg/dL [facility] MAGNESIUMon 05-28-2024 Magnesium [Mass/Vol] 1.5 mg/dL Low 1.6-2.6 [facility] Comment on above: Result Comment: PAGE Menezes COMMENTS:Higher values can be expected in females during menses. Performed By: #### L AB113, LAB17, [id number] ####Jewelry Finisher: JACK ORTIZ ([id number])[facility])[address] [place] [address] Magnesium [Mass/Vol]on 05-28 Higher values can be expected in females during menses. [facility] No Panel Informationon 05-28 Interpretation and review of laboratory results Abnormal [facility] PHOSPHORUSon 05-28-2024 Phosphate [Mass/Vol] 3.5 mg/dL Normal 2.3-4.7 [facility] Comment on above: Performed By: #### L AB113, LAB17, [id number] ####Jewelry Finisher: JACK ORTIZ ([id number])[facility] ([facility])[address] [place] [address] Phosphate [Moles/Vol]on 05-19 Interpretation and review of laboratory results Normal [facility] Phosphate [Mass/Vol] 3.5 mg/dL 2.3 - 4 .7 mg/dL [facility] Progress Noteon 05-28-2024 Progress Note Normal [facility] Progress Note Normal [facility] Progress Note Normal [facility] BASIC METABOLIC PANELon Anion gap [Moles/Vol] 13 mmol/L Normal 3-13 [facility] Comment on above: Performed By: #### L AB15, [id number], [id number] ####Jewelry Finisher: JACK ORTIZ ([id number])[facility] ([facility])[address] [place] [address] Calcium [Mass/Vol] 8.1 mg/dL Low 8.4-10.2 [facility] Comment on above: Performed By: #### L AB15, VRN150, KNY517 ####Jewelry Finisher: JACK ORTIZ ([id number])[facility] ([facility])[address] [place] [address] Chloride [Moles/Vol] 100 mmol/L Normal 98-107 [facility] Comment on above: Performed By: #### L AB15, AGX240, [id number] ####Jewelry Finisher: JACK ORTIZ ([id number])[facility])[address] [place] [address] CO2 [Moles/Vol] 24 mmol/L Normal 22-29 [facility] Comment on above: Performed By: #### Abdelrahman AB15, PCZ145, NGM461 ####Jewelry Finisher: JACK ORTIZ ([id number])[facility])[address] [place] [address] Creatinine [Mass/Vol] 0.57 mg/dL Low 0.72-1.25 [facility] Comment on above: Performed By: #### Abdelrahman AB15, PZM629, QED360 ####Jewelry Finisher: JACK ORTIZ ([id number])[facility])[address] [place] [address] GLOMERULAR FILTRATION RATE ML/MIN/1.73 SQ M.PREDICTED >90.0 Normal >60.0 [facility] Comment on above: Result Comment: Calc ulation based on the Chronic Kidney Disease Epidemiology Collaboration (CKD-EPI) equation refit without adjustment for race Performed By: #### L AB15, GRC045, YYS205 ####Jewelry Finisher: JACK ORTIZ ([id number])[facility])[address] [place] [address] [place] Glucose [Mass/Vol] 102 mg/dL High 74-100 [facility] Comment on above: Performed By: #### L AB15, [id number], GZR514 ####Jewelry Finisher: JACK [id number])[facility] ([facility])[address] [place] [address] Potassium [Moles/Vol] 3.1 mmol/L Low 3.5-5.1 [facility] Comment on above: Result Comment: [facility] potassium values may be up to 0.5 mmol/L lower than serum values. Performed By: #### L AB15, OQD020, VYL527 ####Jewelry Finisher: JACK ORTIZ ([id number])[facility])[address] [place] [address] Sodium [Moles/Vol] 137 mmol/L Normal 136-145 [facility] Comment on above: Performed By: #### L AB15, SBQ234, ZFC395 ####Jewelry Finisher: JACK ORTIZ ([id number])[facility])[address] [place] [address] Urea nitrogen [Mass/Vol] 14 mg/dL Normal 8-21 [facility] Comment on above: Performed By: #### L AB15, QFE060, NSJ150 ####Jewelry Finisher: JACK ORTIZ ([id number])[address] Basic metabolic 1998 panelon 05-27-2024 Anion gap [Moles/Vol] 13 mmol/L 3 - 13 mmol/L [facility] Calcium [Mass/Vol] 8.1 mg/dL Low 8.4 - 10. 2 mg/dL [facility] Chloride [Moles/Vol] 100 mmol/L 98 - 10 7 mmol/L [facility] CO2 [Moles/Vol] 24 mmol/L 22 - 29 mmol/L [facility] Creatinine [Mass/Vol] 0.57 mg/dL Low 0.72 - 1.25 mg/dL [facility] GFR/1.73 sq M.predicted (S/P/Bld) [Vol rate/Area] - PINF [facility] Comment on above: Calculation based on the Chronic Kidney Disease Epidemiology Collaboration (CKD-EPI) equation refit without adjustment for race Glucose [Mass/Vol] 102 mg/dL High 74 - 100 mg/dL [facility] Interpretation and review of laboratory results Abnormal [facility] Potassium [Moles/Vol] 3.1 mmol/L Low 3.5 - 5.1 mmol/L [facility] Comment on above: Plasma potassium ema ues may be up to 0.5 mmol/L lower than serum values. Sodium [Moles/Vol] 137 mmol/L 136 - 145 mmol/L [facility] Urea nitrogen [Mass/Vol] 14 mg/dL 8 - 21 mg/dL [facility] CBC W Auto Differential pane l (Bld)on 05-27-2024 Basophils (Bld) [#/Vol] 0.1 10*3/uL 0.0 - 0.2 10*3/uL [facility] Basophils/100 WBC (Bld) 0.7 % 0.0 - 2.0 % [facility] Eosinophils (Bld) [#/Vol] 0 10*3/uL 0.0 - 0.5 10*3/uL [facility] Eosinophils/100 WBC (Bld) 0.1 % 0.0 - 6.0 % [facility] Erythrocyte distribution width (RBC) [Ratio] 17.6 % High 11.5 - 15.0 % [facility] Hematocrit (Bld) [Volume fraction] 34 % Low 40.0 - 52.0 % [facility] Hemoglobin (Bld) [Mass/Vol] 11.2 g/dL Low 13.0 - 18.0 g/dL [facility] Immature granulocytes (Bld) [#/Vol] 0 10*3/uL NINF - 0.1 10*3/uL [facility] Immature granulocytes/100 WBC (Bld) 0.3 % 0.0 - 2.0 % [facility] Interpretation and review of laboratory results Abnormal [facility] Lymphocytes (Bld) [#/Vol] 1.6 10*3/uL 1.0 - 4.3 10*3/uL [facility] Lymphocytes/100 WBC (Bld) 18.1 % 15.0 - 45.0 % [facility] MCH (RBC) [Entitic mass] 25.9 pg Low 26.0 - 34.0 pg [facility] MCHC (RBC) [Mass/Vol] 32.9 % 30.5 - 36.0 % [facility] MCV (RBC) [Entitic vol] 78.7 fL 77.0 - 99.0 fL [facility] Monocytes (Bld) [#/Vol] 0.5 10*3/uL 0.0 - 0.9 10*3/uL [facility] Monocytes/100 WBC (Bld) 5.3 % 5.0 - 13.0 % [facility] Neutrophils (Bld) [#/Vol] 6.6 10*3/uL 1.8 - 7.5 10*3/uL [facility] Neutrophils/100 WBC (Bld) 75.5 % 38.0 - 82.0 % [facility] Nucleated RBC/100 WBC (Bld) [Ratio] 0 % [facility] Platelet mean volume (Bld) [Entitic vol] 8.4 fL Low 9.0 - 12.7 fL [facility] Platelets (Bld) [#/Vol] 185 10*3/uL 140 - 440 10*3/uL [facility] RBC (Bld) [#/Vol] 4.32 10*6/uL Low 4.40 - 5.9 0 10*6/uL [facility] WBC (Bld) [#/Vol] 8.8 10*3/uL 3.6 - 10.7 10*3/uL [facility] Basophils (Bld) [#/Vol] 0.1 10*3/uL 0.0 - 0.2 10*3/uL [facility] Basophils/100 WBC (Bld) 0.8 % 0.0 - 2.0 % [facility] Eosinophils (Bld) [#/Vol] 0 10*3/uL 0.0 - 0.5 10*3/uL [facility] Eosinophils/100 WBC (Bld) 0.3 % 0.0 - 6.0 % [facility] Erythrocyte distribution width (RBC) [Ratio] 18 % High 11.5 - 15.0 % [facility] Hematocrit (Bld) [Volume fraction] 35.8 % Low 40.0 - 52.0 % [facility] Hemoglobin (Bld) [Mass/Vol] 12 g/dL Low 13.0 - 18.0 g/dL [facility] Immature granulocytes (Bld) [#/Vol] 0 10*3/uL NINF - 0.1 10*3/uL [facility] Immature granulocytes/100 WBC (Bld) 0.3 % 0.0 - 2.0 % [facility] Interpretation and review of laboratory results Abnormal [facility] Lymphocytes (Bld) [#/Vol] 0.7 10*3/uL Low 1.0 - 4.3 10*3/uL [facility] Lymphocytes/100 WBC (Bld) 10.5 % Low 15.0 - 45.0 % [facility] MCH (RBC) [Entitic mass] 26 pg 26.0 - 34.0 pg [facility] MCHC (RBC) [Mass/Vol] 33.5 % 30.5 - 36.0 % [facility] MCV (RBC) [Entitic vol] 77.5 fL 77.0 - 99.0 fL [facility] Monocytes (Bld) [#/Vol] 0.4 10*3/uL 0.0 - 0.9 10*3/uL [facility] Monocytes/100 WBC (Bld) 6 % 5.0 - 13.0 % [facility] Neutrophils (Bld) [#/Vol] 5.3 10*3/uL 1.8 - 7.5 10*3/uL [facility] Neutrophils/100 WBC (Bld) 82.1 % High 38.0 - 82.0 % [facility] Nucleated RBC/100 WBC (Bld) [Ratio] 0 % [facility] Platelet mean volume (Bld) [Entitic vol] 8.6 fL Low 9.0 - 12.7 fL [facility] Platelets (Bld) [#/Vol] 188 10*3/uL 140 - 440 10*3/uL [facility] RBC (Bld) [#/Vol] 4.62 10*6/uL 4.40 - 5.9 0 10*6/uL [facility] WBC (Bld) [#/Vol] 6.5 10*3/uL 3.6 - 10.7 10*3/uL [facility] CBC WITH AUTO DIFFERENTIALon 05-27-2024 Basophils (Bld) [#/Vol] 0.1 10*3/uL Normal 0.0-0.2 [facility] Comment on above: Performed By: #### L [id number] ####Jewelry Finisher: JACK ORTIZ ([id number])[facility] ([address] Basophils/100 WBC (Bld) 0.7 % Normal 0.0-2.0 [facility] Comment on above: Performed By: #### L [id number] ####Jewelry Finisher: JACK ORTIZ ([id number])[facility])[address] [place] [address] Eosinophils (Bld) [#/Vol] 0.0 10*3/uL Normal 0.0-0.5 [facility] Comment on above: Performed By: #### L [id number] ####Jewelry Finisher: JACK ORTIZ ([id number])[facility])[address] [place] [address] Eosinophils/100 WBC (Bld) 0.1 % Normal 0.0-6.0 [facility] Comment on above: Performed By: #### L [id number] ####Jewelry Finisher: JACK ORTIZ ([id number])[address] Erythrocyte distribution width (RBC) [Ratio] 17.6 % High 11.5-15.0 [facility] Comment on above: Performed By: #### L [id number] ####Jewelry Finisher: JACK ORTIZ ([id number])[address] Hematocrit (Bld) [Volume fraction] 34.0 % Low 40.0-52.0 [facility] Comment on above: Performed By: #### L [id number] ####Jewelry Finisher: JACK ORTIZ ([id number])[address] Hemoglobin (Bld) [Mass/Vol] 11.2 g/dL Low 13.0-18.0 [facility] Comment on above: Performed By: #### L [id number] ####Jewelry Finisher: JACK ORTIZ ([id number])[facility])[address] [place] [address] IMMATURE GRANS % 0.3 % Normal 0.0-2.0 [facility] Comment on above: Performed By: #### L [id number] ####Jewelry Finisher: JACK ORTIZ ([id number])[facility])[address] [place] [address] IMMATURE GRANS ABSOLUTE 0.0 10*3/uL Normal <0.1 [facility] Comment on above: Performed By: #### L [id number] ####Jewelry Finisher: JACK ORTIZ ([id number])[facility])[address] [place] [address] Lymphocytes (Bld) [#/Vol] 1.6 10*3/uL Normal 1.0-4.3 [facility] Comment on above: Performed By: #### L [id number] ####Jewelry Finisher: JACK ORTIZ ([id number])[facility])[address] [place] [address] Lymphocytes/100 WBC (Bld) 18.1 % Normal 15.0-45.0 [facility] Comment on above: Performed By: #### L [id number] ####Jewelry Finisher: JACK ORTIZ ([id number])[facility])[address] [place] [address] MCH (RBC) [Entitic mass] 25.9 pg Low 26.0-34.0 [facility] Comment on above: Performed By: #### L [id number] ####Jewelry Finisher: JACK ORTIZ ([id number])[facility])[address] [place] [address] MCHC 32.9 % Normal 30.5-36.0 [facility] Comment on above: Performed By: #### L [id number] ####Jewelry Finisher: JACK ORTIZ ([id number])[facility])[address] [place] [address] MCV (RBC) [Entitic vol] 78.7 fL Normal 77.0-99.0 [facility] Comment on above: Performed By: #### L [id number] ####Jewelry Finisher: JACK ORTIZ ([id number])[facility])[address] [place] [address] [place] Monocytes (Bld) [#/Vol] 0.5 10*3/uL Normal 0.0-0.9 [facility] Comment on above: Performed By: #### L [id number] ####Jewelry Finisher: JACK ORTIZ ([id number])[facility] ([facility])[address] [place] [address] Monocytes/100 WBC (Bld) 5.3 % Normal 5.0-13.[address] [facility] Comment on above: Performed By: #### L [id number] ####Jewelry Finisher: JACK ORTIZ ([id number])[facility] ([facility])[address] [place] [address] NEUTROPHILS ABSOLUTE 6.6 10*3/uL Normal 1.8-7.5 [facility] Comment on above: Performed By: #### L [id number] ####Jewelry Finisher: JACK ORTIZ ([id number])[facility] ([facility])[address] [place] [address] Neutrophils/100 WBC (Bld) 75.5 % Normal 38.0-82.0 [facility] Comment on above: Performed By: #### L [id number] ####Jewelry Finisher: JACK ORTIZ ([id number])[facility] ([facility])[address] [place] [address] NRBC 0.0 /100 WBCs Normal 0.0-2.0 [facility] Comment on above: Performed By: #### L [id number] ####Jewelry Finisher: JACK ORTIZ ([id number])[facility] ([facility])[address] [place] [address] Platelet mean volume (Bld) [Entitic vol] 8.4 fL Low 9.0-12.7 [facility] Comment on above: Performed By: #### L [id number] ####Jewelry Finisher: JACK ORTIZ ([id number])[facility] ([facility])[address] [place] [address] [place] Platelets (Bld) [#/Vol] 185 10*3/uL Normal 140-440 [facility] Comment on above: Performed By: #### L [id number] ####Jewelry Finisher: JACK ORTIZ ([id number])[facility])[address] [place] [address] RBC (Bld) [#/Vol] 4.32 10*6/uL Low 4.40-5.90 [facility] Comment on above: Performed By: #### L [id number] ####Jewelry Finisher: JACK ORTIZ ([id number])[facility])[address] [place] [address] WBC (Bld) [#/Vol] 8.8 10*3/uL Normal 3.6-10.7 [facility] Comment on above: Performed By: #### L [id number] ####Jewelry Finisher: JACK ORTIZ ([phone])[facility])[address] [place] [address] Basophils (Bld) [#/Vol] 0.1 10*3/uL Normal 0.0-0.2 [facility] Comment on above: Performed By: #### L [id number] ####Jewelry Finisher: JACK ORTIZ ([id number])[facility])[address] [place] [address] Basophils/100 WBC (Bld) 0.8 % Normal 0.0-2.0 [facility] Comment on above: Performed By: #### L [id number] ####Jewelry Finisher: JACK ORTIZ ([id number])[facility])[address] [place] [address] Eosinophils (Bld) [#/Vol] 0.0 10*3/uL Normal 0.0-0.5 [facility] Comment on above: Performed By: #### L [id number] ####Jewelry Finisher: JACK ORTIZ ([id number])[facility])[address] [place] [address] Eosinophils/100 WBC (Bld) 0.3 % Normal 0.0-6.0 [facility] Comment on above: Performed By: #### L [id number] ####Jewelry Finisher: JACK ORTIZ ([id number])[address] Erythrocyte distribution width (RBC) [Ratio] 18.0 % High 11.5-15.0 [facility] Comment on above: Performed By: #### L [id number] ####Jewelry Finisher: JACK ORTIZ ([id number])[facility])[address] [place] [address] Hematocrit (Bld) [Volume fraction] 35.8 % Low 40.0-52.0 [facility] Comment on above: Performed By: #### L [id number] ####Jewelry Finisher: JACK ORTIZ ([id number])[address] Hemoglobin (Bld) [Mass/Vol] 12.0 g/dL Low 13.0-18.0 [facility] Comment on above: Performed By: #### L [id number] ####Jewelry Finisher: JACK ORTIZ ([phone])[facility])[address] [place] [address] IMMATURE GRANS % 0.3 % Normal 0.0-2.0 [facility] Comment on above: Performed By: #### L [id number] ####Jewelry Finisher: JACK ORTIZ ([id number])[address] IMMATURE GRANS ABSOLUTE 0.0 10*3/uL Normal <0.1 [facility] Comment on above: Performed By: #### L [id number] ####Jewelry Finisher: JACK ORTIZ ([id number])[address] Lymphocytes (Bld) [#/Vol] 0.7 10*3/uL Low 1.0-4.3 [facility] Comment on above: Performed By: #### L [id number] ####Jewelry Finisher: JACK ORTIZ ([id number])[facility])[address] [place] [address] Lymphocytes/100 WBC (Bld) 10.5 % Low 15.0-45.0 [facility] Comment on above: Performed By: #### L [id number] ####Jewelry Finisher: JACK ORTIZ ([id number])[facility])[address] [place] [address] MCH (RBC) [Entitic mass] 26.0 pg Normal 26.0-34.0 [facility] Comment on above: Performed By: #### L [id number] ####Jewelry Finisher: JACK ORTIZ ([id number])[facility])[address] [place] [address] MCHC 33.5 % Normal 30.5-36.0 [facility] Comment on above: Performed By: #### L [id number] ####Jewelry Finisher: JACK ORTIZ ([id number])[facility])[address] [place] [address] MCV (RBC) [Entitic vol] 77.5 fL Normal 77.0-99.0 [facility] Comment on above: Performed By: #### L [id number] ####Jewelry Finisher: JACK ORTIZ ([id number])[facility])[address] [place] [address] Monocytes (Bld) [#/Vol] 0.4 10*3/uL Normal 0.0-0.9 [facility] Comment on above: Performed By: #### L [id number] ####Jewelry Finisher: JACK ORTIZ ([id number])[facility])[address] [place] [address] Monocytes/100 WBC (Bld) 6.0 % Normal 5.0-13.0 [facility] Comment on above: Performed By: #### L [id number] ####Jewelry Finisher: JACK ORTIZ ([id number])[facility])[address] [place] [address] NEUTROPHILS ABSOLUTE 5.3 10*3/uL Normal 1.8-7.5 [facility] Comment on above: Performed By: #### L [id number] ####Jewelry Finisher: JACK ORTIZ ([id number])[facility] ([facility])[address] [place] [address] Neutrophils/100 WBC (Bld) 82.1 % High 38.0-82.0 [facility] Comment on above: Performed By: #### L [id number] ####Jewelry Finisher: JACK ORTIZ ([id number])[facility] ([facility])[address] [place] [address] NRBC 0.0 /100 WBCs Normal 0.0-2.0 [facility] Comment on above: Performed By: #### L [id number] ####Jewelry Finisher: JACK ORTIZ ([id number])[facility] ([facility])[address] [place] [address] Platelet mean volume (Bld) [Entitic vol] 8.6 fL Low 9.0-12.7 [facility] Comment on above: Performed By: #### L [id number] ####Jewelry Finisher: JACK ORTIZ ([id number])[facility] ([facility])[address] [place] [address] [place] Platelets (Bld) [#/Vol] 188 10*3/uL Normal 140-440 [facility] Comment on above: Performed By: #### L [id number] ####Jewelry Finisher: JACK ORTIZ ([id number])[facility] ([facility])[address] [place] [address] [place] RBC (Bld) [#/Vol] 4.62 10*6/uL Normal 4.40-5.90 [facility] Comment on above: Performed By: #### L [id number] ####Jewelry Finisher: JACK ORTIZ ([id number])[facility])[address] [place] [address] [place] WBC (Bld) [#/Vol] 6.5 10*3/uL Normal 3.6-10.7 [facility] Comment on above: Performed By: #### L [id number] ####Jewelry Finisher: JACK ORTIZ ([id number])[facility] ([facility])[address] [place] [address] [place] CKon 05-27-2024 CK [Catalytic activity/Vol] 69 U/L Normal 30-185 [facility] Comment on above: Performed By: #### L [id number], LAB17, LAB99, LAB46, [id number], LAB62 ####Jewelry Finisher: JACK ORTIZ ([id number])[facility] ([facility])[address] [place] [address] COMPREHENSIVE METABOLIC PANE Eduardo 05-27-2024 Albumin [Mass/Vol] 3.3 g/dL Low 3.5-5.0 [facility] Comment on above: Performed By: #### L AB103, [id number], LAB17 ####Jewelry Finisher: JACK ORTIZ ([id number])[facility] ([facility])[address] [place] [address] ALP [Catalytic activity/Vol] 159 U/L High 40-150 [facility] Comment on above: Performed By: #### L AB103, [id number], LAB17 ####Jewelry Finisher: JACK ORTIZ ([id number])[facility] ([facility])[address] [place] [address] ALT [Catalytic activity/Vol] 12 U/L Normal <40 [facility] Comment on above: Performed By: #### L AB103, [id number], LAB17 ####Jewelry Finisher: JACK ORTIZ ([id number])[facility] ([facility])[address] [place] [address] Anion gap [Moles/Vol] 15 mmol/L High 3-13 [facility] Comment on above: Performed By: #### L AB103, [id number], LAB17 ####Jewelry Finisher: JACK ORTIZ ([id number])[facility])[address] [place] [address] AST [Catalytic activity/Vol] 31 U/L Normal <34 [facility] Comment on above: Performed By: #### L AB103, [id number], LAB17 ####Jewelry Finisher: JACK ORTIZ ([id number])[facility])[address] [place] [address] Bilirubin [Mass/Vol] 0.8 mg/dL Normal <1.2 [facility] Comment on above: Performed By: #### Abdelrahman ABTho, [id number], LAB17 ####Jewelry Finisher: JACK ORTIZ ([id number])[facility] ([facility])[address] [place] [address] Calcium [Mass/Vol] 8.0 mg/dL Low 8.4-10.2 [facility] Comment on above: Performed By: #### Abdelrahman AB103, [id number], [id number] ####Jewelry Finisher: JACK ORTIZ ([phone])[facility] ([facility])[address] [place] [address] Chloride [Moles/Vol] 101 mmol/L Normal 98-107 [facility] Comment on above: Performed By: #### Abdelrahman AB103, [id number], [id number] ####Jewelry Finisher: JACK ORTIZ ([phone])[facility] ([facility])[address] [place] [address] CO2 [Moles/Vol] 23 mmol/L Normal 22-29 [facility] Comment on above: Performed By: #### Abdelrahman AB103, [id number], [id number] ####Jewelry Finisher: JACK ORTIZ ([id number])[facility] ([facility])[address] [place] [address] Creatinine [Mass/Vol] 0.58 mg/dL Low 0.72-1.25 [facility] Comment on above: Performed By: #### L [id number], [id number], [id number] ####Jewelry Finisher: JACK ORTIZ ([phone])[facility] ([facility])[address] [place] [address] GLOMERULAR FILTRATION RATE ML/MIN/1.73 SQ M.PREDICTED >90.0 Normal >60.0 [facility] Comment on above: Result Comment: Calc ulation based on the Chronic Kidney Disease Epidemiology Collaboration (CKD-EPI) equation refit without adjustment for race Performed By: #### L YOAV, [id number], LAB17 ####Jewelry Finisher: JACK ORTIZ ([id number])[facility])[address] [place] [address] Glucose [Mass/Vol] 102 mg/dL High 74-100 [facility] Comment on above: Performed By: #### L 103, [id number], LAB17 ####Jewelry Finisher: JACK ORTIZ ([id number])[facility])[address] [place] [address] Potassium [Moles/Vol] 2.9 mmol/L Low 3.5-5.1 [facility] Comment on above: Result Comment: [facility] potassium values may be up to 0.5 mmol/L lower than serum values. Performed By: #### Abdelrahman CASON, [id number], [id number] ####Jewelry Finisher: JACK ORTIZ ([id number])[facility] ([facility])[address] [place] [address] Protein [Mass/Vol] 6.5 g/dL Normal 6.4-8.3 [facility] Comment on above: Performed By: #### Abdelrahman [id number], [id number], LAB17 ####Jewelry Finisher: JACK ORTIZ ([id number])[facility])[address] [place] [address] [place] Sodium [Moles/Vol] 139 mmol/L Normal 136-145 [facility] Comment on above: Performed By: #### L AB103, [id number], LAB17 ####Jewelry Finisher: JACK ORTIZ ([id number])[facility])[address] [place] [address] Urea nitrogen [Mass/Vol] 13 mg/dL Normal 8-21 [facility] Comment on above: Performed By: #### L AB103, [id number], LAB17 ####Jewelry Finisher: JACK ORTIZ ([id number])[facility] ([facility])[address] [place] [address] Albumin [Mass/Vol] 3.6 g/dL Normal 3.5-5.0 [facility] Comment on above: Performed By: #### L [id number], LAB17, LAB99, LAB46, [id number], LAB62 ####Jewelry Finisher: JACK ORTIZ ([id number])[facility] ([facility])[address] [place] [address] ALP [Catalytic activity/Vol] 169 U/L High 40-150 [facility] Comment on above: Performed By: #### L [id number], LAB17, LAB99, LAB46, [id number], LAB62 ####Jewelry Finisher: JACK ORTIZ ([id number])[facility] ([facility])[address] [place] [address] ALT [Catalytic activity/Vol] 14 U/L Normal <40 [facility] Comment on above: Performed By: #### L [id number], LAB17, LAB99, LAB46, [id number], LAB62 ####Jewelry Finisher: JACK ORTIZ ([id number])[facility] ([facility])[address] [place] [address] Anion gap [Moles/Vol] 19 mmol/L High 3-13 [facility] Comment on above: Performed By: #### L [id number], LAB17, LAB99, LAB46, [id number], LAB62 ####Jewelry Finisher: JACK ORTIZ ([id number])[facility] ([facility])[address] [place] [address] AST [Catalytic activity/Vol] 33 U/L Normal <34 [facility] Comment on above: Performed By: #### L [id number], LAB17, LAB99, LAB46, [id number], LAB62 ####Jewelry Finisher: JACK ORTIZ ([id number])[facility] ([facility])[address] [place] [address] Bilirubin [Mass/Vol] 0.9 mg/dL Normal <1.2 [facility] Comment on above: Performed By: #### L [id number], LAB17, LAB99, LAB46, [id number], LAB62 ####Jewelry Finisher: JACK ORTIZ ([id number])[facility])[address] [place] [address] Calcium [Mass/Vol] 8.5 mg/dL Normal 8.4-10.2 [facility] Comment on above: Performed By: #### L [id number], LAB17, LAB99, LAB46, [id number], LAB62 ####Jewelry Finisher: JACK ORTIZ ([id number])[facility] ([facility])[address] [place] [address] Chloride [Moles/Vol] 99 mmol/L Normal 98-107 [facility] Comment on above: Performed By: #### L [id number], LAB17, LAB99, LAB46, HCQ076, LAB62 ####Jewelry Finisher: JACK ORTIZ ([id number])[facility] ([facility])[address] [place] [address] CO2 [Moles/Vol] 22 mmol/L Normal 22-29 [facility] Comment on above: Performed By: #### L [id number], LAB17, LAB99, LAB46, [id number], LAB62 ####Jewelry Finisher: JACK ORTIZ ([id number])[facility] ([facility])[address] [place] [address] Creatinine [Mass/Vol] 0.62 mg/dL Low 0.72-1.25 [facility] Comment on above: Performed By: #### L [id number], LAB17, LAB99, LAB46, YII015, LAB62 ####Jewelry Finisher: JACK ORTIZ ([id number])[facility])[address] [place] [address] GLOMERULAR FILTRATION RATE ML/MIN/1.73 SQ M.PREDICTED >90.0 Normal >60.0 [facility] Comment on above: Result Comment: Calc ulation based on the Chronic Kidney Disease Epidemiology Collaboration (CKD-EPI) equation refit without adjustment for race Performed By: #### L [id number], LAB17, LAB99, LAB46, [id number], LAB62 ####Jewelry Finisher: JACK ORTIZ ([id number])[facility])[address] [place] [address] Glucose [Mass/Vol] 104 mg/dL High 74-100 [facility] Comment on above: Performed By: #### L [id number], LAB17, LAB99, LAB46, [id number], LAB62 ####Jewelry Finisher: JACK ORTIZ ([id number])[facility])[address] [place] [address] Potassium [Moles/Vol] 2.6 mmol/L Critically low 3.5-5.1 [facility] Comment on above: Result Comment: [facility] potassium values may be up to 0.5 mmol/L lower than serum values. Performed By: #### L [id number], LAB17, LAB99, LAB46, QPB635, LAB62 ####Jewelry Finisher: JACK ORTIZ ([id number])[facility])[address] [place] [address] Protein [Mass/Vol] 7.0 g/dL Normal 6.4-8.3 [facility] Comment on above: Performed By: #### L [id number], LAB17, LAB99, LAB46, [id number], LAB62 ####Jewelry Finisher: JACK ORTIZ ([id number])[address] Sodium [Moles/Vol] 140 mmol/L Normal 136-145 [facility] Comment on above: Performed By: #### L [id number], LAB17, LAB99, LAB46, YCB180, LAB62 ####Jewelry Finisher: JACK ORTIZ ([id number])[facility])[address] [place] [address] Urea nitrogen [Mass/Vol] 13 mg/dL Normal 8-21 [facility] Comment on above: Performed By: #### L [id number], LAB17, LAB99, LAB46, [id number], LAB62 ####Jewelry Finisher: JACK ORTIZ ([id number])[facility] ([facility])[address] [place] [address] Comprehensive metabolic 1998 panelon 05-27-2024 Albumin [Mass/Vol] 3.3 g/dL Low 3.5 - 5.0 g/dL [facility] ALP [Catalytic activity/Vol] 159 U/L High 40 - 150 U/L [facility] ALT [Catalytic activity/Vol] 12 U/L NINF - 40 U/L [facility] Anion gap [Moles/Vol] 15 mmol/L High 3 - 13 mmol/L [facility] AST [Catalytic activity/Vol] 31 U/L NINF - 34 U/L [facility] Bilirubin [Mass/Vol] 0.8 mg/dL NINF - 1.2 mg/dL [facility] Calcium [Mass/Vol] 8 mg/dL Low 8.4 - 10. 2 mg/dL [facility] Chloride [Moles/Vol] 101 mmol/L 98 - 10 7 mmol/L [facility] CO2 [Moles/Vol] 23 mmol/L 22 - 29 mmol/L [facility] Creatinine [Mass/Vol] 0.58 mg/dL Low 0.72 - 1.25 mg/dL [facility] GFR/1.73 sq M.predicted (S/P/Bld) [Vol rate/Area] - PINF [facility] Comment on above: Calculation based on the Chronic Kidney Disease Epidemiology Collaboration (CKD-EPI) equation refit without adjustment for race Glucose [Mass/Vol] 102 mg/dL High 74 - 100 mg/dL [facility] Interpretation and review of laboratory results Abnormal [facility] Potassium [Moles/Vol] 2.9 mmol/L Low 3.5 - 5.1 mmol/L [facility] Comment on above: Plasma potassium ema ues may be up to 0.5 mmol/L lower than serum values. Protein [Mass/Vol] 6.5 g/dL 6.4 - 8.3 g/dL [facility] Sodium [Moles/Vol] 139 mmol/L 136 - 145 mmol/L [facility] Urea nitrogen [Mass/Vol] 13 mg/dL 8 - 21 mg/dL [facility] Comprehensive metabolic 1997 panelOrdered By: Jaleesa Ryan on 05-27-2024 Albumin [Mass/Vol] 3.6 g/dL 3.5 - 5.0 g/dL [facility] ALP [Catalytic activity/Vol] 169 U/L High 40 - 150 U/L [facility] ALT [Catalytic activity/Vol] 14 [facility] Anion gap [Moles/Vol] 19 mmol/L High 3 - 13 mmol/L [facility] AST [Catalytic activity/Vol] 33 U/L NINF - 34 U/L [facility] Bilirubin [Mass/Vol] 0.9 mg/dL NINF - 1.2 mg/dL [facility] Calcium [Mass/Vol] 8.5 mg/dL 8.4 - 10. 2 mg/dL [facility] Chloride [Moles/Vol] 99 mmol/L 98 - 10 7 mmol/L [facility] CO2 [Moles/Vol] 22 mmol/L 22 - 29 mmol/L [facility] Creatinine [Mass/Vol] 0.62 mg/dL Low 0.72 - 1.25 mg/dL [facility] GFR/1.73 sq M.predicted (S/P/Bld) [Vol rate/Area] - PINF [facility] Comment on above: Calculation based on the Chronic Kidney Disease Epidemiology Collaboration (CKD-EPI) equation refit without adjustment for race Glucose [Mass/Vol] 104 mg/dL High 74 - 100 mg/dL [facility] Interpretation and review of laboratory results Abnormal [facility] Potassium [Moles/Vol] 2.6 mmol/L Critically low 3.5 - 5.1 mmol/L [facility] Comment on above: Plasma potassium ema ues may be up to 0.5 mmol/L lower than serum values. Protein [Mass/Vol] 7 g/dL 6.4 - 8.3 g/dL [facility] Sodium [Moles/Vol] 140 mmol/L 136 - 145 mmol/L [facility] Urea nitrogen [Mass/Vol] 13 mg/dL 8 - 21 mg/dL [facility] Consulton 05-27-2024 Consult Normal [facility] DRUGS OF ABUSEon 05-27-2024 AMPHETAMINE SCREEN Negative Normal [facility] Comment on above: Performed By: #### L [id number] ####Jewelry Finisher: JACK ORTIZ ([id number])[facility] ([facility])[address] [place] [address] BARBITURATES SCREEN Positive Normal [facility] Comment on above: Performed By: #### L [id number] ####Jewelry Finisher: JACK ORTIZ ([id number])[facility])[address] [place] [address] BENZODIAZEPINE SCREEN Negative Normal [facility] Comment on above: Performed By: #### L [id number] ####Jewelry Finisher: JACK ORTIZ ([id number])[facility])[address] [place] [address] COCAINE METAB. SCREEN Negative Normal [facility] Comment on above: Performed By: #### L [id number] ####Jewelry Finisher: JACK ORTIZ ([id number])[facility])[address] [place] [address] FENTANYL SCREEN, UR QUAL Negative Normal [facility] Comment on above: Result Comment: PAGE [...] under separate order. Performed By: #### L [id number] ####Jewelry Finisher: JACK ORTIZ ([id number])[facility])[address] [place] [address] METHADONE SCREEN Negative Normal [facility] Comment on above: Performed By: #### L [id number] ####Jewelry Finisher: JACK ORTIZ ([id number])[facility])[address] [place] [address] OPIATES SCREEN Negative Normal [facility] Comment on above: Performed By: #### L [id number] ####Jewelry Finisher: JACK ORTIZ ([id number])[facility] ([facility])[address] [place] [address] OXYCODONE SCREEN Negative Normal [facility] Comment on above: Performed By: #### L [id number] ####Jewelry Finisher: JACK ORTIZ ([id number])[facility] ([facility])[address] [place] [address] PHENCYCLIDINE SCREEN Negative Normal [facility] Comment on above: Performed By: #### L [id number] ####Jewelry Finisher: JACK ORTIZ ([id number])[facility])[address] [place] [address] ECG 12-LEADon 05-27-2024 ECG 12-LEAD IMPRESSION: EKG shows sinus tachycardia, normal axis, normal PA QRS and prolonged QTC intervals, no STEMI, no SVT, no LVH. 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 Nair and Dr. Humphrey via secure chat ED Provider Noteon ED Provider Note Normal [facility] ETHANOLon 05-27-2024 ETHANOL IN SER/PLAS 136 mg/dL High <10 [facility] Comment on above: Result Comment: ORDE R COMMENTS:[employer]PERATOR depression is seen >100 mg/dL.NOTE: This result is for medical treatment only. Analysis performed using non-forensic procedures. Performed By: #### L [id number], LAB17, LAB99, LAB46, [id number], LAB62 ####Jewelry Finisher: JACK ORTIZ ([id number])[facility])[address] [place] [address] Ethanol (Bld) [Mass/Vol]on 0 05-27-2024 Ethanol [Mass/Vol] 136 mg/dL High NINF - 10 mg/dL [facility] [employer] OPER[employer] depression is seen >100 mg/dL. NOTE: This result is for medical treatment only. Analysis performed using non-forensic procedures. [facility] FREE T4on 05-27-2024 Free T4 [Mass/Vol] 0.99 ng/dL Normal 0.70-1.48 [facility] Comment on above: Performed By: #### L AB129, [id number] ####Jewelry Finisher: JACK ORTIZ ([id number])[facility])[address] [place] [address] Free T4 [Mass/Vol]on 025 Free T4 Dialysis [Mass/Vol] 0.99 ng/dL 0.70 - 1.48 ng/dL [facility] HIGH SENSITIVITY TROPONIN, S ERIAL BASELINEon 05-27-2024 TROPONIN HS SERIAL BASELINE 4 ng/L Normal <=35 [facility] Comment on above: Result Comment: In i ndividuals presenting with symptoms > 2h, a baseline troponin <= 5 ng/L suggests acutecardiac injury is unlikely and further serial testing is generally not indicated. Performed By: #### L [id number], LAB17, LAB99, LAB46, [id number], LAB62 ####Jewelry Finisher: JACK ORTIZ ([id number])[address] HIGH SENSITIVITY TROPONIN, S ERIAL, SECOND TESTon 05-27-2024 2H TROPONIN HS (SERIAL 2ND TROPONIN) 4 ng/L Normal <=35 [facility] Comment on above: Result Comment: Risi ng or falling troponin delta below 2 ng/L as compared to baseline value suggests thatacute cardiac injury is unlikely. Performed By: #### L AB103, [id number], LAB17 ####Jewelry Finisher: JACK ORTIZ ([id number])[facility])[address] [place] [address] LACTIC ACID WITH REFLEXon Lactate [Moles/Vol] 1.3 mmol/L Normal 0.5-2.2 [facility] Comment on above: Performed By: #### L [id number] ####Jewelry Finisher: JACK ORTIZ ([id number])[facility])[address] [place] [address] LIPASEon 05-27-2024 Lipase [Catalytic activity/Vol] 19 U/L Normal <55 [facility] Comment on above: Performed By: #### L [id number], LAB17, LAB99, LAB46, [id number], LAB62 ####Jewelry Finisher: JACK ORTIZ ([id number])[facility] ([facility])[address] [place] [address] Laboratory - Chemistry and C hemistry - challengeon 05-27-2024 Magnesium [Mass/Vol] 1.7 mg/dL 1.6 - 2 .6 mg/dL [facility] Lactate [Moles/Vol] 1.3 mmol/L 0.5 - 2. 2 mmol/L [facility] Magnesium [Mass/Vol] 1.4 mg/dL Low 1.6 - 2 .6 mg/dL [facility] TSH Qn 0.47 m[IU]/L [facility] CK [Catalytic activity/Vol] 69 U/L 30 - 185 U/L [facility] Lipase [Catalytic activity/Vol] 19 U/L NINF - 55 U/L [facility] Magnesium [Mass/Vol] 1.1 mg/dL Low 1.6 - 2 .6 mg/dL [facility] Laboratory - Drug toxicology on 05-27-2024 Amphetamines Screen method >1000 ng/mL Ql (U) Negative [facility] Barbiturates Screen method >200 ng/mL Ql (U) Positive [facility] Benzodiazepines Ql (U) Negative [facility] Methadone Screen Ql (U) Negative [facility] Opiates Screen Ql (U) Negative [facility] oxyCODONE Ql (U) Negative [facility] Phencyclidine Ql (U) Negative [facility] Laboratory - Microbiology an d Antimicrobial susceptibilityon 05-27-2024 FLUAV RNA CONNOR+probe Ql (Resp) Not detected Not Detected [facility] FLUBV RNA CONNOR+probe Ql (Resp) Not detected Not Detected [facility] RSV RNA CONNOR+probe Ql (Resp) Not detected Not Detected [facility] SARS-CoV-2 (COVID-19) RNA CONNOR+probe Ql (Resp) Not detected Not Detected [facility] MAGNESIUMon 05-27-2024 Magnesium [Mass/Vol] 1.7 mg/dL Normal 1.6-2.6 [facility] Comment on above: Result Comment: ORDE R COMMENTS:Higher values can be expected in females during menses. Performed By: #### L AB15, [id number], [id number] ####Jewelry Finisher: JACK ORTIZ ([phone])[facility])[address] [place] [address] Magnesium [Mass/Vol] 1.4 mg/dL Low 1.6-2.6 [facility] Comment on above: Result Comment: ORDE R COMMENTS:Higher values can be expected in females during menses. Performed By: #### L AB103, [id number], LAB17 ####Jewelry Finisher: JACK ORTIZ ([id number])[facility])[address] [place] [address] Magnesium [Mass/Vol] 1.1 mg/dL Low 1.6-2.6 [facility] Comment on above: Result Comment: ORDE R COMMENTS:Higher values can be expected in females during menses. Performed By: #### L [id number], LAB17, LAB99, LAB46, [id number], LAB62 ####Jewelry Finisher: JACK ORTIZ ([id number])[facility] ([facility])[address] [place] [address] Magnesium [Mass/Vol]on 05-27 Higher values can be expected in females during menses. [facility] Interpretation and review of laboratory results Abnormal [facility] Higher values can be expected in females during menses. [facility] Higher values can be expected in females during menses. [facility] No Panel Informationon 05-27 COCAINE METAB. SCREEN Negative [facility] FENTANYL SCREEN, UR QUAL Negative [facility] The expected value for all of [...] is needed, request confirmation under separate order. [facility] Interpretation and review of laboratory results Normal [facility] Interpretation and review of laboratory results Normal [facility] 2h Troponin HS (Serial 2nd Troponin) 4 ng/L NINF - 35 ng/L [facility] Comment on above: Rising or falling tr oponin delta below 2 ng/L as compared to baseline value suggests that acute cardiac injury is unlikely. Interpretation and review of laboratory results Normal [facility] Interpretation and review of laboratory results Normal [facility] Interpretation and review of laboratory results Normal [facility] Interpretation and review of laboratory results Abnormal [facility] Interpretation and review of laboratory results Normal [facility] Troponin HS Serial Baseline 4 ng/L [facility] ng/L [facility] Comment on above: In individuals prese nting with symptoms > 2h, a baseline troponin <= 5 ng/L suggests acute cardiac injury is unlikely and further serial testing is generally not indicated. [facility] P [place] 66 degrees [facility] PA Interval 146 ms [facility] QRS [place] 43 degrees [facility] QRSD [facility]val [facility] 320 ms [facility] QTC Interval 468 ms [facility] T Wave [place] 0 degrees [facility] EKG shows sinus tachycardia, normal axis, normal PA QRS and prolonged QTC intervals, no STEMI, no SVT, no LVH. 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) Electronically Signed On 05-27-2024 09:26:47 EST by Marquise Nair [facility] PHOSPHORUSon 05-27-2024 Phosphate [Mass/Vol] 3.5 mg/dL Normal 2.3-4.7 [facility] Comment on above: Performed By: #### L AB15, [id number], [id number] ####Jewelry Finisher: JACK ORTIZ ([id number])[facility])[address] [place] [address] Phosphate [Moles/Vol]on Phosphate [Mass/Vol] 3.5 mg/dL 2.3 - 4 .7 mg/dL [facility] SARS-COV-2, FLU A/B, AND RSV COMBOon 05-27-2024 SARS-CoV-2 (COVID-19) RNA CONNOR+probe Ql (Unsp spec) Normal [facility] Comment on above: Performed By: #### L [id number] ####Jewelry Finisher: JACK ORTIZ ([id number])[facility] ([facility])[address] [place] [address] SARS-CoV-2, Flu A/B, and RSV Comboon 05-27-2024 Interpretation and review of laboratory results Normal [facility] Methodology: real-time, RT-PCR [facility] THYROID STIMULATING HORMONEo n 05-27-2024 THYROID STIMULATING HORMONE 0.47 uIU/mL Normal 0.35-4.94 [facility] Comment on above: Performed By: #### L AB129, [id number] ####Jewelry Finisher: JACK ORTIZ ([id number])[facility])[address] [place] [address] Vital signson 05-27-2024 Heart rate 128 /min bpm [facility] XR Chest Single viewon 05-27 No acute cardiopulmonary process identified. Report Dictated on Electronically Signed By: Tal Oshea MD Electronically Signed Date/Time: 05/27/2024 9:34 AM [facility] Patient Name: EL SMITH : [...] Electronically Signed Date/Time: 05/27/2024 9:34 AM EST [facility] Radiology Study observation (narrative) [facility] ileana XR Chest Single viewOrdered By: Tal Oshea on 05-27-2024 [facility] Work Phone: CNOVon 05-24-2024 CNOV Office Visit (ORTHST ) EL SMITH ([id number]) 1980 Date Time Provider Department 05/24/24 9:30 AM HAI CLARK During your visit today, we recorded the following information about you: Hai Clark MD 05/24/2024 12:55 PM Signed Hai Clark MD Shoulder and Elbow Surgery Department of Orthopaedic Surgery, [facility] Office: [place]. [phone] ; INITIAL ENCOUNTER FOR A NEW SHOULDER [...] outside records have been reviewed. Occupation: Retired [employer] REVIEW OF SYSTEMS: Constitutional: patient denies any [...] Shoulder Atrophy (more content not included)... [facility] XR SHLDR >/=3V AP/IVAN AP/OTH R [...] Avulsion fracture of the RIGHT greater tuberosity. Strategic Pl[facility] Transcribe Date/Time: May 24 2024 12:13P Dictated by : LESLIE ERIC MD This examination was interpreted and the report reviewed and electronically signed by: LESLIE ERIC MD on May 24 2024 12:14PM EST [id number] [facility] XR Shoulder - right 3 Viewso n 05-24-2024 IMPRESSION: 1. Avulsion fracture of the RIGHT greater tuberosity. Strategic Planner: [facility] Transcribe Date/Time: May 24 2024 12:13P [...] interval are maintained. DIVISION OF RADIOLOGY Provider, [facility] Marya [facility] - 05/24/2024 * * *Final Report* * [...] Avulsion fracture of the RIGHT greater tuberosity. Strategic Planner: [facility] Transcribe Date/Time: May 24 2024 12:13P Dictated by : LESLIE ERIC MD This examination was interpreted and the report reviewed and electronically signed by: LESLIE ERIC MD on May 24 2024 12:14PM [facility] Radiology Study observation (narrative) [facility] XR Shoulder - right 3 ViewsO rdered By: [facility] Provider on 05-24-2024 [facility] 37on 05-17-2024 37 [facility] [address] Quinten Velazquez [phone] Normal [facility] Progress Noteon 05-17-2024 Progress Note [facility] XR HAND 3+ VIEWS RIGHTon XR HAND 3+ VIEWS RIGHT Comminuted intra-articular base of the first metacarpal fracture displaced but healing Normal [facility] XR SHOULDER 2+ VIEWS RIGHTon 05-17-2024 XR SHOULDER 2+ VIEWS RIGHT Minimal displaced right greater tuberosity fracture and overall acceptable alignment, non healed Normal [facility] Progress Noteon 05-09-2024 Progress Note Pt called off from individual session due to weather and transportation.. Normal [facility] Progress [facility] Progress Noteon 04-30-2024 Progress Note [facility] Progress Noteon 04-23-2024 Progress Note [facility] 36on 04-15-2024 36 Script already in 04/12/24 to 05/12/23. Please set up appointment w/ Pt on Tuesday the as schedule allows. Normal [facility] 36on 04-09-2024 36 Patient received med s 03/20/24 Normal [facility] 36 Normal [facility] Progress Noteon 04-05-2024 Progress Note Normal [facility] XR HAND 3+ VIEWS RIGHTon XR HAND 3+ VIEWS RIGHT Comminuted intra-articular base of the first metacarpal fracture with displacement from prior imaging Normal [facility] XR SHOULDER 2+ VIEWS RIGHTon 04-05-2024 XR SHOULDER 2+ VIEWS RIGHT Minimal displaced right greater tuberosity fracture and overall acceptable alignment Normal [facility] Progress Noteon 03-30-2024 Progress Note Normal [facility] [id number] 03-23-2024 [id number] Normal [facility] Progress Noteon 03-23-2024 Progress Note Normal [facility] 37on 03-13-2024 37 Normal [facility] Progress Noteon 03-13-2024 Progress Note Normal [facility] Progress Noteon 03-08-2024 Progress Note Normal [facility] CT SHOULDER RIGHT WO IV CONT RASTon 03-06-2024 CT SHOULDER RIGHT WO IV CONTRAST Normal [facility] CT Shoulder - right WO contr buffy 03-06-2024 Acute fracture deformity right humeral head. Follow-up recommended. Report Dictated on Electronically Signed By: Dev Queen MD Electronically Signed Date/Time: 03/06/2024 10:57 AM [facility] Patient Name: EL SMITH : [...] deformity with irregular margins noted. No dislocation. [facility] Dev Queen MD - 03/06/2024 Patient Name: EL SMITH : 1980 [facility]#: [id number] Exam Date/Time: 03/06/2024 10:45 Procedure: CT SHOULDER [...] Electronically Signed Date/Time: 03/06/2024 10:57 AM EST [facility] Radiology Study observation (narrative) [facility] alth CT Shoulder - right WO contr astOrdered By: Dev Queen on 03-06-2024 [facility] Work Phone: Consulton 03-06-2024 Consult Normal [facility] ECG 12-LEADon 03-06-2024 ECG 12-LEAD IMPRESSION: Sinus rhythm Consider right ventricular hypertrophy Probable left ventricular hypertrophy Abnormal inferior Q waves Electronically Signed On 03-06-2024 12:21:11 EST by Hitesh Corona Normal [facility] ED Nursing Noteon 03-06-2024 ED Nursing Note Report from DESIREE Bateman. Normal [facility] ED Nursing Note Food tray ordered fo r pt. Normal [facility] ED Nursing Note Pt continues to pull off leads, and refuse vitals. Soft splint ortho placed is still in place. Normal [facility] ED Nursing Note Pt ripped off cast. Pt asked why he ripped cast off, pt states it was annoying. Ortho notified. Ortho and surgery team to discuss. Ortho to place soft splint in meantime. Normal [facility] ED Nursing Note Ortho to bedside. Normal [facility] - Drug toxicology Ordered By: Ronald Martell on 03-06-2024 Amphetamines Ql (U) Negative Negative [facility] Barbiturates screen method Nom (U) Positive Negative [facility] Benzodiazepines screen method Nom (U) Positive Negative [facility] Cocaine Ql (U) Negative Negative [facility] Ethanol [Mass/Vol] Negative Negative [facility] Methadone Ql (U) Negative Negative [facility] Opiates Screen Ql (U) Negative Negative [facility] No Panel InformationOrdered By: Kd Luevano on 03-06-2024 ETHYL GLUCURONIDE, URINE Negative Negative [facility] Ethyl Glucuronide nuñez s been screened by [...] been determined by the clinical laboratories of [facility]. [facility] [facility] No Panel InformationOrdered By: Hitesh Corona on 03-06-2024 P [place] 57 degrees [facility] Work Phone: PA Interval 164 ms [facility] Work Phone: QRS [place] 53 degrees [employer] [facility] Work Phone: QRSD Interval 106 ms [employer] Work Phone: QT Interval 372 ms [facility] Work Phone: QTC Interval 452 ms [employer] [facility] Work Phone: T Wave [place] 32 degrees [employer] Work Phone: [facility] Work Phone: No Panel Informationon 03-06 Sinus rhythm Consider right ventricular hypertrophy Probable left ventricular hypertrophy Abnormal inferior Q waves Electronically Signed On 03-06-2024 12:21:11 EST by Hitesh Israel DO - 03/06/2024 IMPRESSION: Sinus rhythm Consider right ventricular hypertrophy Probable left ventricular hypertrophy Abnormal inferior Q waves Electronically Signed On 03-06-2024 12:21:11 EST by Hitesh Corona [facility] No Panel InformationOrdered By: Ronald Martell on 03-06-2024 BUPRENORPHINE SCREEN Positive Negative [facility] FENTANYL Negative Negative [facility] OXYCODONE/OXYMORPHONE Negative Negative [facility] PCP Negative Negative [facility] THC Positive Negative [facility] The expected value for the drugs listed [...] treatment only. Analysis performed using non-forensic procedures. [facility] Progress Noteon 03-06-2024 Progress Note Normal [facility] Progress Note Normal [facility] Progress Note Normal [facility] Progress Note Normal [facility] Vital signsOrdered By: Hitesh Corona on 03-06-2024 Heart rate 89 /min bpm [facility] Work Phone: XR Foot - bilateral 3 [...] osseous lesion. No significant soft tissue abnormality. [facility] Kamla Sawant M D - 03/06/2024 [facility]: [facility] 1980 [id number] Exam Date/Time: 03/06/2024 00:15 Procedure: XR FOOT [...] Electronically Signed Date/Time: 03/06/2024 12:53 AM EST [facility] Radiology Study observation (narrative) [facility] XR Humerus - right Viewson 1 05-06-2023 Redemonstration of a mildly displaced fracture of the superolateral humeral head.. Report Dictated on Electronically Signed By: Kamla Sawant MD Electronically Signed Date/Time: 03/06/2024 12:58 AM [facility] SYSTEM Patient Name: EL SMITH : 1980 [...] osseous lesion. No significant soft tissue abnormality. [facility] Kamla Sawant M D - 03/06/2024 [...] Electronically Signed Date/Time: 03/06/2024 12:58 AM EST [facility] Radiology Study observation (narrative) [facility] XR Shoulder - left 2 Viewson 03-06-2024 No acute left shoulder abnormality is identified. Acute appearing nondisplaced fracture of the left ninth lateral rib.. Report Dictated on Electronically Signed By: Kamla Sawant MD Electronically Signed Date/Time: 03/06/2024 12:56 AM [facility] Patient Name: EL SMITH : [...] There is no significant soft tissue abnormality. [facility] Kamla Sawant M D - 03/06/2024 [...] MD Electronically Signed Date/Time: 03/06/2024 12:56 AM [facility] Radiology Study observation (narrative) [facility] XR Shoulder - left 2 ViewsOr dered By: Kamla Sawant on 03-06-2024 [facility] Work Phone: ABO and Rh group Confirm Nom (Bld)on 03-05-2024 ABO group Nom (Bld) A [facility] D Ag Ql (RBC) Positive [facility] BASIC METABOLIC PANELon 02-16 Anion gap [Moles/Vol] 6 mmol/L Normal 3-13 [facility] Comment on above: Performed By: #### L AB46, LAB15, [id number], [id number] ####Jewelry Finisher: JACK ORTIZ ([id number])[facility] [place] [address] Calcium [Mass/Vol] 8.6 mg/dL Normal 8.4-10.4 [facility] Comment on above: Performed By: #### L AB46, LAB15, [id number], [id number] ####Jewelry Finisher: JACK ORTIZ ([id number])[facility] ([facility])[address] [place] [address] Chloride [Moles/Vol] 99 mmol/L Normal 98-107 [facility] Comment on above: Performed By: #### L AB46, LAB15, [id number], NVR974 ####Jewelry Finisher: JACK ORTIZ ([id number])[facility] ([facility])[address] [place] [address] CO2 [Moles/Vol] 28 mmol/L Normal 22-30 [facility] Comment on above: Performed By: #### L AB46, LAB15, [id number], [id number] ####Jewelry Finisher: JACK ORTIZ ([id number])[facility] ([facility])[address] [place] [address] Creatinine [Mass/Vol] 0.58 mg/dL Low 0.66-1.25 [facility] Comment on above: Performed By: #### L AB46, LAB15, PYL171, [id number] ####Jewelry Finisher: JACK ORTIZ ([id number])[facility])[address] [place] [address] [place] GLOMERULAR FILTRATION RATE ML/MIN/1.73 SQ M.PREDICTED >90.0 Normal >60.0 [facility] Comment on above: Result Comment: Calc ulation based on the Chronic Kidney Disease Epidemiology Collaboration (CKD-EPI) equation refit without adjustment for race Performed By: #### L AB46, LAB15, BFQ242, [id number] ####Jewelry Finisher: JACK ORTIZ ([id number])[facility])[address] [place] [address] Glucose [Mass/Vol] 106 mg/dL High 70-100 [facility] Comment on above: Performed By: #### L AB46, LAB15, HPK174, QWW183 ####Jewelry Finisher: JACK ORTIZ ([id number])[facility] ([facility])[address] [place] [address] Potassium [Moles/Vol] 3.3 mmol/L Low 3.5-5.1 [facility] Comment on above: Performed By: #### L AB46, LAB15, IVT636, XKT409 ####Jewelry Finisher: JACK ORTIZ ([id number])[facility] ([facility])[address] [place] [address] Sodium [Moles/Vol] 134 mmol/L Low 135-145 [facility] Comment on above: Performed By: #### L AB46, LAB15, FGN208, MDM594 ####Jewelry Finisher: JACK ORTIZ ([id number])[facility])[address] [place] [address] Urea nitrogen [Mass/Vol] 11 mg/dL Normal 9-20 [facility] Comment on above: Performed By: #### L AB46, LAB15, PEZ714, QJA940 ####Jewelry Finisher: JACK ORTIZ ([id number])[facility])[address] [place] [address] BLOOD TYPE AND SCREEN GELon 03-05-2024 ABO GROUPING A Normal [facility] Comment on above: Performed By: #### L [id number] ####Jewelry Finisher: JACK ORTIZ ([id number])[facility] ([facility])[address] [place] [address] [place] RH TYPE IN BLOOD Positive Normal [facility] Comment on above: Performed By: #### L [id number] ####Jewelry Finisher: JACK ORTIZ ([id number])[facility] ([facility])[address] [place] [address] Basic metabolic 1998 panelon 03-05-2024 Anion gap [Moles/Vol] 6 mmol/L 3 - 13 mmol/L [facility] Calcium [Mass/Vol] 8.6 mg/dL 8.4 - 10. 4 mg/dL [facility] Chloride [Moles/Vol] 99 mmol/L 98 - 10 7 mmol/L [facility] CO2 [Moles/Vol] 28 mmol/L 22 - 30 mmol/L [facility] Creatinine [Mass/Vol] 0.58 mg/dL Low 0.66 - 1.25 mg/dL [facility] GFR/1.73 sq M.predicted (S/P/Bld) [Vol rate/Area] - PINF [facility] Comment on above: Calculation based on the Chronic Kidney Disease Epidemiology Collaboration (CKD-EPI) equation refit without adjustment for race Glucose [Mass/Vol] 106 mg/dL High 70 - 100 mg/dL [facility] Interpretation and review of laboratory results Abnormal [facility] Potassium [Moles/Vol] 3.3 mmol/L Low 3.5 - 5.1 mmol/L [facility] Sodium [Moles/Vol] 134 mmol/L Low 135 - 145 mmol/L [facility] Urea nitrogen [Mass/Vol] 11 mg/dL 9 - 20 mg/dL [facility] Blood type and Crossmatch pa joanna (Bld)on 03-05-2024 ABO group Nom (Bld) A [facility] Blood group antibody screen GEL Ql Negative [facility] D Ag Ql (RBC) Positive [facility] Healt h [facility] CBC W Auto Differential pane l (Bld)Ordered By: Angie Worthington on 03-05-2024 Basophils (Bld) [#/Vol] 0.2 10*3/uL 0.0 - 0.2 10*3/uL [facility] Basophils/100 WBC (Bld) 1.6 % 0.0 - 2.0 % [facility] Eosinophils (Bld) [#/Vol] 0.4 10*3/uL 0.0 - 0.5 10*3/uL [facility] Eosinophils/100 WBC (Bld) 3.8 % 0.0 - 6.0 % [facility] Erythrocyte distribution width (RBC) [Ratio] 20.4 % High 11.5 - 15.0 % [facility] Hematocrit (Bld) [Volume fraction] 31.4 % Low 40.0 - 52.0 % [facility] Hemoglobin (Bld) [Mass/Vol] 9.6 g/dL Low 13.0 - 18.0 g/dL [facility] Immature granulocytes (Bld) [#/Vol] 0 10*3/uL NINF - 0.1 10*3/uL [facility] Immature granulocytes/100 WBC (Bld) 0.3 % 0.0 - 2.0 % [facility] Interpretation and review of laboratory results Abnormal [facility] Lymphocytes (Bld) [#/Vol] 3.6 10*3/uL 1.0 - 4.3 10*3/uL [facility] Lymphocytes/100 WBC (Bld) 35.9 % 15.0 - 45.0 % [facility] MCH (RBC) [Entitic mass] 23.4 pg Low 26.0 - 34.0 pg [facility] MCHC (RBC) [Mass/Vol] 30.6 % 30.5 - 36.0 % [facility] MCV (RBC) [Entitic vol] 76.4 fL Low 77.0 - 99.0 fL [facility] Monocytes (Bld) [#/Vol] 0.8 10*3/uL 0.0 - 0.9 10*3/uL [facility] Monocytes/100 WBC (Bld) 8.3 % 5.0 - 13.0 % [facility] Neutrophils (Bld) [#/Vol] 4.9 10*3/uL 1.8 - 7.5 10*3/uL [facility] Neutrophils/100 WBC (Bld) 50.1 % 38.0 - 82.0 % [facility] Nucleated RBC/100 WBC (Bld) [Ratio] 0 % [facility] Platelet mean volume (Bld) [Entitic vol] 8.8 fL Low 9.0 - 12.7 fL [facility] Platelets (Bld) [#/Vol] 631 10*3/uL High 140 - 440 10*3/uL [facility] RBC (Bld) [#/Vol] 4.11 10*6/uL Low 4.40 - 5.9 0 10*6/uL [facility] WBC (Bld) [#/Vol] 9.9 10*3/uL 3.6 - 10.7 10*3/uL [facility] CBC WITH AUTO DIFFERENTIALon 03-05-2024 Basophils (Bld) [#/Vol] 0.2 10*3/uL Normal 0.0-0.2 [facility] Comment on above: Performed By: #### L [id number] ####Jewelry Finisher: JACK ORTIZ ([id number])[facility] ([facility])[address] [place] [address] Basophils/100 WBC (Bld) 1.6 % Normal 0.0-2.0 [facility] Comment on above: Performed By: #### L [id number] ####Jewelry Finisher: JACK ORTIZ ([id number])[facility])[address] [place] [address] Eosinophils (Bld) [#/Vol] 0.4 10*3/uL Normal 0.0-0.5 [facility] Comment on above: Performed By: #### L [id number] ####Jewelry Finisher: JACK ORTIZ ([id number])[facility])[address] [place] [address] Eosinophils/100 WBC (Bld) 3.8 % Normal 0.0-6.0 [facility] Comment on above: Performed By: #### L [id number] ####Jewelry Finisher: JACK ORTIZ ([id number])[facility])[address] [place] [address] Erythrocyte distribution width (RBC) [Ratio] 20.4 % High 11.5-15.0 [facility] Comment on above: Performed By: #### L [id number] ####Jewelry Finisher: JACK ORTIZ ([id number])[facility])[address] [place] [address] Hematocrit (Bld) [Volume fraction] 31.4 % Low 40.0-52.0 [facility] Comment on above: Performed By: #### L [id number] ####Jewelry Finisher: JACK ORTIZ ([id number])[facility])[address] [place] [address] Hemoglobin (Bld) [Mass/Vol] 9.6 g/dL Low 13.0-18.0 [facility] Comment on above: Performed By: #### L [id number] ####Jewelry Finisher: JACK ORTIZ ([id number])[facility])[address] [place] [address] IMMATURE GRANS % 0.3 % Normal 0.0-2.0 [facility] Comment on above: Performed By: #### L [id number] ####Jewelry Finisher: JACK ORTIZ ([id number])[facility])[address] [place] [address] IMMATURE GRANS ABSOLUTE 0.0 10*3/uL Normal <0.1 [facility] Comment on above: Performed By: #### L [id number] ####Jewelry Finisher: JACK ORTIZ ([id number])[facility] ([facility])[address] [place] [address] Lymphocytes (Bld) [#/Vol] 3.6 10*3/uL Normal 1.0-4.3 [facility] Comment on above: Performed By: #### L [id number] ####Jewelry Finisher: JACK ORTIZ ([id number])[facility])[address] [place] [address] Lymphocytes/100 WBC (Bld) 35.9 % Normal 15.0-45.0 [facility] Comment on above: Performed By: #### L [id number] ####Jewelry Finisher: JACK ORTIZ ([id number])[facility])[address] [place] [address] MCH (RBC) [Entitic mass] 23.4 pg Low 26.0-34.0 [facility] Comment on above: Performed By: #### L [id number] ####Jewelry Finisher: JACK ORTIZ ([id number])[facility] [place] [address] MCHC 30.6 % Normal 30.5-36.0 [facility] Comment on above: Performed By: #### L [id number] ####Jewelry Finisher: JACK ORTIZ ([id number])[facility] ([facility])[address] [place] [address] MCV (RBC) [Entitic vol] 76.4 fL Low 77.0-99.0 [facility] Comment on above: Performed By: #### L [id number] ####Jewelry Finisher: JACK ORTIZ ([id number])[facility] ([facility])[address] [place] [address] Monocytes (Bld) [#/Vol] 0.8 10*3/uL Normal 0.0-0.9 [facility] Comment on above: Performed By: #### L [id number] ####Jewelry Finisher: JACK ORTIZ ([id number])[facility] ([facility])[address] [place] [address] Monocytes/100 WBC (Bld) 8.3 % Normal 5.0-13.0 [facility] Comment on above: Performed By: #### L [id number] ####Jewelry Finisher: JACK ORTIZ ([id number])[facility] ([facility])[address] [place] [address] NEUTROPHILS ABSOLUTE 4.9 10*3/uL Normal 1.8-7.5 [facility] Comment on above: Performed By: #### L [id number] ####Jewelry Finisher: JACK ORTIZ ([id number])[facility] ([facility])[address] [place] [address] Neutrophils/100 WBC (Bld) 50.1 % Normal 38.0-82.0 [facility] Comment on above: Performed By: #### L [id number] ####Jewelry Finisher: JACK ORTIZ ([id number])[facility] ([facility])[address] [place] [address] NRBC 0.0 /100 WBCs Normal 0.0-2.0 [facility] Comment on above: Performed By: #### L [id number] ####Jewelry Finisher: JACK ORTIZ ([id number])[facility])[address] [place] [address] Platelet mean volume (Bld) [Entitic vol] 8.8 fL Low 9.0-12.7 [facility] Comment on above: Performed By: #### L [id number] ####Jewelry Finisher: JACK ORTIZ ([id number])[facility] ([facility])[address] [place] [address] Platelets (Bld) [#/Vol] 631 10*3/uL High 140-440 [facility] Comment on above: Performed By: #### L [id number] ####Jewelry Finisher: JACK ORTIZ ([id number])[facility])[address] [place] [address] RBC (Bld) [#/Vol] 4.11 10*6/uL Low 4.40-5.90 [facility] Comment on above: Performed By: #### L [id number] ####Jewelry Finisher: JACK ORTIZ ([id number])[facility])[address] [place] [address] WBC (Bld) [#/Vol] 9.9 10*3/uL Normal 3.6-10.7 [facility] Comment on above: Performed By: #### L [id number] ####Jewelry Finisher: JACK ORTIZ ([id number])[facility])[address] [place] [address] CT CERVICAL SPINE WO IV CONT RASTon 03-05-2024 CT CERVICAL SPINE WO IV CONTRAST Normal [facility] CT Cervical spine WO contras ton 03-05-2024 [...] 03/05/2024 [facility] 1980 [id number] Exam Date/Time: 03/05/2024 21:52 Procedure: CT CERVICAL [...] MD Electronically Signed Date/Time: 03/05/2024 10:35 PM [facility] CT HEAD WO IV CONTRASTon CT HEAD WO IV CONTRAST Normal [facility] CT Head WO contraston 2023 Patient [...] 03/05/2024 Patient Name: EL SM[facility] : 1980 [id number] Exam Date/Time: 03/05/2024 21:52 Procedure: CT HEAD [...] Electronically Signed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 Finisher: JACK ORTIZ ([id number])[facility] ([facility])[address] [place] [address] Potassium [Moles/Vol] 3.4 mmol/L Low 3.5-5.1 [facility] Comment on above: Performed By: #### L AB113, LAB15, [id number] ####Jewelry Finisher: JACK ORTIZ ([id number])[facility] ([facility])[address] [place] [address] Sodium [Moles/Vol] 137 mmol/L Normal 135-145 [facility] Comment on above: Performed By: #### L AB113, LAB15, [id number] ####Jewelry Finisher: JACK ORTIZ ([id number])[facility] ([facility])[address] [place] [address] Urea nitrogen [Mass/Vol] 8 mg/dL Low 9-20 [facility] Comment on above: Performed By: #### L AB113, LAB15, [id number] ####Jewelry Finisher: JACK ORTIZ ([id number])[facility] ([facility])[address] [place] [address] Basic metabolic 1998 panelon 02-12-2024 Anion gap [Moles/Vol] 5 mmol/L 3 - 13 mmol/L [facility] Calcium [Mass/Vol] 7.7 mg/dL Low 8.4 - 10. 4 mg/dL [facility] Chloride [Moles/Vol] 104 mmol/L 98 - 10 7 mmol/L [facility] CO2 [Moles/Vol] 24 mmol/L 22 - 30 mmol/L [facility] Creatinine [Mass/Vol] 0.51 mg/dL Low 0.66 - 1.25 mg/dL [facility] GFR/1.73 sq M.predicted (S/P/Bld) [Vol rate/Area] - PINF [facility] Comment on above: Calculation based on the Chronic Kidney Disease Epidemiology Collaboration (CKD-EPI) equation refit without adjustment for race Glucose [Mass/Vol] 166 mg/dL High 70 - 100 mg/dL [facility] Interpretation and review of laboratory results Abnormal [facility] Fengxiafei Potassium [Moles/Vol] 3.6 mmol/L 3.5 - 5.1 mmol/L [facility] Sodium [Moles/Vol] 133 mmol/L Low 135 - 145 mmol/L [facility] Urea nitrogen [Mass/Vol] 11 mg/dL 9 - 20 mg/dL [facility] Anion gap [Moles/Vol] 7 mmol/L 3 - 13 mmol/L [facility] Calcium [Mass/Vol] 7.7 mg/dL Low 8.4 - 10. 4 mg/dL [facility] Chloride [Moles/Vol] 101 mmol/L 98 - 10 7 mmol/L [facility] CO2 [Moles/Vol] 28 mmol/L 22 - 30 mmol/L [facility] Creatinine [Mass/Vol] 0.38 mg/dL Low 0.66 - 1.25 mg/dL [facility] GFR/1.73 sq M.predicted (S/P/Bld) [Vol rate/Area] - PINF [facility] Comment on above: Calculation based on the Chronic Kidney Disease Epidemiology Collaboration (CKD-EPI) equation refit without adjustment for race Glucose [Mass/Vol] 113 mg/dL High 70 - 100 mg/dL [facility] Interpretation and review of laboratory results Abnormal [facility] Potassium [Moles/Vol] 3.4 mmol/L Low 3.5 - 5.1 mmol/L [facility] Sodium [Moles/Vol] 137 mmol/L 135 - 145 mmol/L [facility] Urea nitrogen [Mass/Vol] 8 mg/dL Low 9 - 20 mg/dL [facility] CBC W Auto Differential pane l (Bld)Ordered By: Carolina Barry on 02-12-2024 Basophils (Bld) [#/Vol] 0 10*3/uL 0.0 - 0.2 10*3/uL [facility] Basophils/100 WBC (Bld) 0.7 % 0.0 - 2.0 % [facility] Eosinophils (Bld) [#/Vol] 0 10*3/uL 0.0 - 0.5 10*3/uL [facility] Eosinophils/100 WBC (Bld) 0.5 % 0.0 - 6.0 % [facility] Erythrocyte distribution width (RBC) [Ratio] 20.2 % High 11.5 - 15.0 % [facility] Hematocrit (Bld) [Volume fraction] 31.7 % Low 40.0 - 52.0 % [facility] Hemoglobin (Bld) [Mass/Vol] 9.8 g/dL Low 13.0 - 18.0 g/dL [facility] Immature granulocytes (Bld) [#/Vol] 0 10*3/uL NINF - 0.1 10*3/uL [facility] Health Immature granulocytes/100 WBC (Bld) 0.5 % 0.0 - 2.0 % [facility] Interpretation and review of laboratory results Abnormal [facility] Lymphocytes (Bld) [#/Vol] 0.7 10*3/uL Low 1.0 - 4.3 10*3/uL [facility] Health Lymphocytes/100 WBC (Bld) 16.7 % 15.0 - 45.0 % [facility] MCH (RBC) [Entitic mass] 22.6 pg Low 26.0 - 34.0 pg [facility] MCHC (RBC) [Mass/Vol] 30.9 % 30.5 - 36.0 % [facility] MCV (RBC) [Entitic vol] 73.2 fL Low 77.0 - 99.0 fL [facility] Monocytes (Bld) [#/Vol] 0.4 10*3/uL 0.0 - 0.9 10*3/uL [facility] Monocytes/100 WBC (Bld) 9 % 5.0 - 13.0 % [facility] Neutrophils (Bld) [#/Vol] 2.9 10*3/uL 1.8 - 7.5 10*3/uL [facility] Neutrophils/100 WBC (Bld) 72.6 % 38.0 - 82.0 % [facility] Nucleated RBC/100 WBC (Bld) [Ratio] 0 % [facility] Platelet mean volume (Bld) [Entitic vol] 10 fL 9.0 - 12.7 fL [facility] Platelets (Bld) [#/Vol] 137 10*3/uL Low 140 - 440 10*3/uL [facility] RBC (Bld) [#/Vol] 4.33 10*6/uL Low 4.40 - 5.9 0 10*6/uL [facility] WBC (Bld) [#/Vol] 4 10*3/uL 3.6 - 10.7 10*3/uL [facility] CBC WITH AUTO DIFFERENTIALon 02-12-2024 Basophils (Bld) [#/Vol] 0.0 10*3/uL Normal 0.0-0.2 [facility] Comment on above: Performed By: #### L [id number] ####Jewelry Finisher: JACK ORTIZ ([id number])[facility])[address] [place] [address] Basophils/100 WBC (Bld) 0.7 % Normal 0.0-2.0 [facility] Comment on above: Performed By: #### L [id number] ####Jewelry Finisher: JACK ORTIZ ([id number])[facility])[address] [place] [address] Eosinophils (Bld) [#/Vol] 0.0 10*3/uL Normal 0.0-0.5 [facility] Comment on above: Performed By: #### L [id number] ####Jewelry Finisher: JACK ORTIZ ([id number])[facility])[address] [place] [address] Eosinophils/100 WBC (Bld) 0.5 % Normal 0.0-6.0 [facility] Comment on above: Performed By: #### L [id number] ####Jewelry Finisher: JACK ORTIZ ([id number])[facility])[address] [place] [address] Erythrocyte distribution width (RBC) [Ratio] 20.2 % High 11.5-15.0 [facility] Comment on above: Performed By: #### L [id number] ####Jewelry Finisher: JACK ORTIZ ([id number])[facility])[address] [place] [address] Hematocrit (Bld) [Volume fraction] 31.7 % Low 40.0-52.0 [facility] Comment on above: Performed By: #### L [id number] ####Jewelry Finisher: JACK ORTIZ ([id number])[facility])[address] [place] [address] Hemoglobin (Bld) [Mass/Vol] 9.8 g/dL Low 13.0-18.0 [facility] Comment on above: Performed By: #### L [id number] ####Jewelry Finisher: JACK ORTIZ ([id number])[facility])[address] [place] [address] IMMATURE GRANS % 0.5 % Normal 0.0-2.0 [facility] Comment on above: Performed By: #### L [id number] ####Jewelry Finisher: JACK ORTIZ ([id number])[address] IMMATURE GRANS ABSOLUTE 0.0 10*3/uL Normal <0.1 [facility] Comment on above: Performed By: #### L [id number] ####Jewelry Finisher: JACK ORTIZ ([id number])[facility])[address] [place] [address] Lymphocytes (Bld) [#/Vol] 0.7 10*3/uL Low 1.0-4.3 [facility] Comment on above: Performed By: #### L [id number] ####Jewelry Finisher: JACK ORTIZ ([id number])[facility])[address] [place] [address] Lymphocytes/100 WBC (Bld) 16.7 % Normal 15.0-45.0 [facility] Comment on above: Performed By: #### L [id number] ####Jewelry Finisher: JACK ORTIZ ([id number])[facility])[address] [place] [address] MCH (RBC) [Entitic mass] 22.6 pg Low 26.0-34.0 [facility] Comment on above: Performed By: #### L [id number] ####Jewelry Finisher: JACK ORTIZ ([id number])[facility] [place] [address] MCHC 30.9 % Normal 30.5-36.0 [facility] Comment on above: Performed By: #### L [id number] ####Jewelry Finisher: JACK ORTIZ ([id number])[facility] ([facility])[address] [place] [address] MCV (RBC) [Entitic vol] 73.2 fL Low 77.0-99.0 [facility] Comment on above: Performed By: #### L [id number] ####Jewelry Finisher: JACK ORTIZ ([id number])[facility])[address] [place] [address] Monocytes (Bld) [#/Vol] 0.4 10*3/uL Normal 0.0-0.9 [facility] Comment on above: Performed By: #### L [id number] ####Jewelry Finisher: JACK ORTIZ ([id number])[facility] ([facility])[address] [place] [address] Monocytes/100 WBC (Bld) 9.0 % Normal 5.0-13.0 [facility] Comment on above: Performed By: #### L [id number] ####Jewelry Finisher: JACK ORTIZ ([id number])[facility] ([facility])[address] [place] [address] NEUTROPHILS ABSOLUTE 2.9 10*3/uL Normal 1.8-7.5 [facility] Comment on above: Performed By: #### L [id number] ####Jewelry Finisher: JACK ORTIZ ([id number])[facility])[address] [place] [address] Neutrophils/100 WBC (Bld) 72.6 % Normal 38.0-82.0 [facility] Comment on above: Performed By: #### L [id number] ####Jewelry Finisher: JACK ORTIZ ([id number])[facility] ([facility])[address] [place] [address] NRBC 0.0 /100 WBCs Normal 0.0-2.0 [facility] Comment on above: Performed By: #### L [id number] ####Jewelry Finisher: JACK ORTIZ ([id number])[facility])[address] [place] [address] Platelet mean volume (Bld) [Entitic vol] 10.0 fL Normal 9.0-12.7 [facility] Comment on above: Performed By: #### L [id number] ####Jewelry Finisher: JACK ORTIZ ([id number])[facility] ([facility])[address] [place] [address] Platelets (Bld) [#/Vol] 137 10*3/uL Low 140-440 [facility] Comment on above: Performed By: #### L [id number] ####Jewelry Finisher: JACK ORTIZ ([id number])[facility])[address] [place] [address] RBC (Bld) [#/Vol] 4.33 10*6/uL Low 4.40-5.90 [facility] Comment on above: Performed By: #### L [id number] ####Jewelry Finisher: JACK ORTIZ ([id number])[facility])[address] [place] [address] WBC (Bld) [#/Vol] 4.0 10*3/uL Normal 3.6-10.7 [facility] Comment on above: Performed By: #### L [id number] ####Jewelry Finisher: JACK ORTIZ ([id number])[facility])[address] [place] [address] CT HEAD WO IV CONTRASTon CT HEAD WO IV CONTRAST Normal [facility] CT Head WO contraston 2023 Impression: Overall stable CT head. Report Dictated on Electronically Signed By: Ge Sifuentes MD Electronically Signed Date/Time: 02/12/2024 7:25 AM [facility] Patient Name: EL SMITH : 1980 [...] facial bone fractures and right globe proptosis. [facility] Ge Sifuentes MD - 02/12/2024 Patient Name: EL SMITH : 1980 [facility]#: [id number] Exam Date/Time: 02/12/2024 00:20 Procedure: CT HEAD [...] Electronically Signed Date/Time: 02/12/2024 7:25 AM EDT [facility] Radiology Study observation (narrative) Deandre Randolph alth CT Head WO contrastOrdered B y: Ge Sifuentes on 02-12-2024 [facility] Work Phone: Consulton 02-12-2024 Consult Normal [facility] Consult Normal [facility] Consult Normal [facility] ECG 12-LEADon 02-12-2024 ECG 12-LEAD IMPRESSION: Sinus tachycardia Probable left ventricular hypertrophy Probable inferior infarct, old Lateral infarct, age indeterminate Electronically Signed On 02-12-2024 13:14:34 EDT by Isha Antonio Normal [facility] Laboratory - Chemistry and C hemistry - challengeon 02-12-2024 Magnesium [Mass/Vol] 1.5 mg/dL Low 1.6 - 2 .3 mg/dL [facility] Laboratory - Chemistry and C hemistry - challengeOrdered By: Daniel Venegas on 02-12-2024 Magnesium [Mass/Vol] 0.9 mg/dL Critically low 1.6 - 2.3 mg/dL [facility] Laboratory - Drug toxicology Ordered By: Carmelita Frias on 02-12-2024 Amphetamines Ql (U) Negative Negative [facility] Barbiturates screen method Nom (U) Positive Negative [facility] Benzodiazepines screen method Nom (U) Positive Negative [facility] Cocaine Ql (U) Negative Negative [facility] th Ethanol [Mass/Vol] Negative Negative [facility] Methadone Ql (U) Negative [facility] O[facility] Screen Ql (U) Negative Negative [facility] MAGNESIUMon 02-12-2024 Magnesium [Mass/Vol] 1.5 mg/dL Low 1.6-2.3 [facility] Comment on above: Performed By: #### L AB15, [id number] ####Jewelry Finisher: JACK ORTIZ ([id number])[facility] ([address] Magnesium [Mass/Vol] 0.9 mg/dL Critically low 1.6-2.3 [facility] Comment on above: Performed By: #### L AB113, LAB15, [id number] ####Jewelry Finisher: JACK ORTIZ ([id number])[facility] ([facility])[address] [place] [address] MEDICATION ASSISTED TREATMEN T PANELon 02-12-2024 Amphetamines Ql (U) Negative Normal Negative [facility] Comment on above: Performed By: #### L [id number] ####Jewelry Finisher: JACK ORTIZ ([id number])[facility] ([facility])[address] [place] [address] BARBITURATES Positive Normal Negative [facility] Comment on above: Performed By: #### L [id number] ####Jewelry Finisher: JACK ORTIZ ([id number])[facility] ([facility])[address] [place] [address] Benzodiazepines Ql (U) Positive Normal Negative [facility] Comment on above: Performed By: #### L [id number] ####Jewelry Finisher: JACK ORTIZ ([id number])[facility] ([facility])[address] [place] [address] BUPRENORPHINE SCREEN Negative Normal Negative [facility] Comment on above: Performed By: #### L [id number] ####Jewelry Finisher: JACK ORTIZ ([id number])[facility] ([facility])[address] [place] [address] Cocaine Ql (U) Negative Normal Negative [facility] Comment on above: Performed By: #### L [id number] ####Jewelry Finisher: JACK ORTIZ ([id number])[facility] ([facility])[address] [place] [address] ETHANOL-ETOHO Negative Normal Negative [facility] Comment on above: Result [...] using non-forensic procedures. Performed By: #### L [id number] ####Jewelry Finisher: JACK ORTIZ ([id number])[facility] ([facility])[address] [place] [address] FENTANYL Negative Normal Negative [facility] Comment on above: Performed By: #### L [id number] ####Jewelry Finisher: JACK ORTIZ ([id number])[facility] ([facility])[address] [place] [address] Methadone Ql (U) Negative Normal Negative [facility] Comment on above: Performed By: #### L [id number] ####Jewelry Finisher: JACK ORTIZ ([id number])[facility] ([facility])[address] [place] [address] Opiates Ql (U) Negative Normal Negative [facility] Comment on above: Performed By: #### L [id number] ####Jewelry Finisher: JACK ORTIZ ([id number])[facility] ([facility])[address] [place] [address] OXYCODONE/OXYMORPHONE Negative Normal Negative [facility] Comment on above: Performed By: #### L [id number] ####Jewelry Finisher: JACK ORTIZ ([id number])[facility] ([facility])[address] [place] [address] PCP Negative Normal Negative [facility] Comment on above: Performed By: #### L [id number] ####Jewelry Finisher: JACK ORTIZ ([id number])[facility] ([facility])[address] [place] [address] THC-MTTHC Positive Normal Negative [facility] Comment on above: Performed By: #### L [id number] ####Jewelry Finisher: JACK ORTIZ ([id number])[facility] ([facility])[address] [place] [address] Magnesium [Mass/Vol]on 02-11 Interpretation and review of laboratory results Abnormal [facility] Magnesium [Mass/Vol]Ordered By: Daniel Venegas on 02-12-2024 Interpretation and review of laboratory results Abnormal [facility] No Panel InformationOrdered By: Carmelita Frias on 02-12-2024 BUPRENORPHINE SCREEN Negative Negative [facility] FENTANYL Negative Negative [facility] OXYCODONE/OXYMORPHONE Negative Negative [facility] PCP Negative Negative [facility] THC Positive Negative [facility] The expected value for the drugs listed [...] treatment only. Analysis performed using non-forensic procedures. [facility] No Panel InformationOrdered By: Isha Antonio on 02-12-2024 P [place] 33 degrees [facility] [employer] Work Phone: PA Interval 127 ms [facility] [employer] Work Phone: QRS [place] 35 degrees [facility] [employer] Work Phone: QRSD Interval 102 ms [facility] Work Phone: QT Interval 359 ms [facility] [employer] Work Phone: [phone] QTC Interval 498 ms [facility] [employer] Work Phone: T Wave [place] 16 degrees [facility] [employer] Work Phone: [facility] [employer] Work Phone: No Panel Informationon 02-11 Sinus tachycardia Probable left ventricular hypertrophy Probable inferior infarct, old Lateral infarct, age indeterminate Electronically Signed On 02-12-2024 13:14:34 EDT by Isha Antonio CV Isha Pfeiffer MD - 02/12/2024 IMPRESSION: Sinus tachycardia Probable left ventricular hypertrophy Probable inferior infarct, old Lateral infarct, age indeterminate Electronically Signed On 02-12-2024 13:14:34 EDT by Isha Antonio [facility] Nursing Noteon 02-12-2024 Nursing Note Normal [facility] PHOSPHORUSon 02-12-2024 Phosphate [Mass/Vol] 4.5 mg/dL Normal 2.5-4.5 [facility] Comment on above: Performed By: #### L AB113, LAB15, [id number] ####Jewelry Finisher: JACK ORTIZ ([id number])[facility] ([address] Phosphate [Moles/Vol]on 01-17 Interpretation and review of laboratory results Normal [facility] Phosphate [Mass/Vol] 4.5 mg/dL 2.5 - 4 .5 mg/dL [facility] Progress Noteon 02-12-2024 Progress Note Normal [facility] Vital signsOrdered By: Isha Antonio on 02-12-2024 Heart rate 115 /min bpm [facility] [employer] Work Phone: XR ELBOW 3+ VIEWS RIGHTon XR ELBOW 3+ VIEWS RIGHT Normal S [facility] XR Elbow - right 3 Viewson [...] radiocapitellar joint. No significant soft tissue abnormality. [facility] Kamla Sawant M D - 02/12/2024 [...] Electronically Signed Date/Time: 02/12/2024 8:00 PM EDT [facility] Radiology Study observation (narrative) [facility]th XR SHOULDER 2+ VIEWS RIGHTon 02-12-2024 XR SHOULDER 2+ VIEWS RIGHT Normal [facility] XR Shoulder - right 2 Viewso n 02-12-2024 No acute osseous abnormality. Report Dictated on Electronically Signed By: Kamla Sawant MD Electronically Signed Date/Time: 02/12/2024 7:01 PM EDT [facility] Patient Name: EL SMITH : [...] There is no significant soft tissue abnormality. [facility] Kamla Sawant M D - 02/12/2024 [facility] Name: [facility] 1980 [id number] Exam Date/Time: 02/12/2024 17:17 Procedure: XR SHOULDER [...] Electronically Signed Date/Time: 02/12/2024 7:01 PM EDT [facility] Radiology Study observation (narrative) [facility] XR Shoulder - right 2 ViewsO rdered By: Kamla Sawant on 02-12-2024 [facility] [employer] Work Phone: CBC W Auto Differential pane l (Bld)Ordered By: Soumya Reyes on 02-11-2024 Basophils (Bld) [#/Vol] 0 10*3/uL 0.0 - 0.2 10*3/uL [facility] [employer] Basophils/100 WBC (Bld) 0.4 % 0.0 - 2.0 % [facility] Eosinophils (Bld) [#/Vol] 0.1 10*3/uL 0.0 - 0.5 10*3/uL [facility] Eosinophils/100 WBC (Bld) 2.7 % 0.0 - 6.0 % [facility] Erythrocyte distribution width (RBC) [Ratio] 20 % High 11.5 - 15.0 % [facility] Hematocrit (Bld) [Volume fraction] 33.8 % Low 40.0 - 52.0 % [facility] Hemoglobin (Bld) [Mass/Vol] 10.4 g/dL Low 13.0 - 18.0 g/dL [facility] [employer] Immature granulocytes (Bld) [#/Vol] 0 10*3/uL NINF - 0.1 10*3/uL [facility] Immature granulocytes/100 WBC (Bld) 0.4 % 0.0 - 2.0 % [facility] Interpretation and review of laboratory results Abnormal [facility] Lymphocytes (Bld) [#/Vol] 0.9 10*3/uL Low 1.0 - 4.3 10*3/uL [facility] Lymphocytes/100 WBC (Bld) 19.2 % 15.0 - 45.0 % [facility] MCH (RBC) [Entitic mass] 23.1 pg Low 26.0 - 34.0 pg [facility] MCHC (RBC) [Mass/Vol] 30.8 % 30.5 - 36.0 % [facility] MCV (RBC) [Entitic vol] 75.1 fL Low 77.0 - 99.0 fL [facility] Monocytes (Bld) [#/Vol] 0.3 10*3/uL 0.0 - 0.9 10*3/uL [facility] Monocytes/100 WBC (Bld) 6.7 % 5.0 - 13.0 % [facility] Neutrophils (Bld) [#/Vol] 3.5 10*3/uL 1.8 - 7.5 10*3/uL [facility] Neutrophils/100 WBC (Bld) 70.6 % 38.0 - 82.0 % [facility] [employer] Nucleated RBC/100 WBC (Bld) [Ratio] 0 % [facility] [employer] Platelet mean volume (Bld) [Entitic vol] 8.8 fL Low 9.0 - 12.7 fL [facility] [employer] Comment on above: MPV is a calculated measurement using platelet volume ratio Platelets (Bld) [#/Vol] 123 10*3/uL Low 140 - 440 10*3/uL [facility] RBC (Bld) [#/Vol] 4.5 10*6/uL 4.40 - 5.9 0 10*6/uL [facility] WBC (Bld) [#/Vol] 4.9 10*3/uL 3.6 - 10.7 10*3/uL [facility] CBC WITH AUTO DIFFERENTIALon 02-11-2024 Basophils (Bld) [#/Vol] 0.0 10*3/uL Normal 0.0-0.2 [facility] Comment on above: Performed By: #### L [id number] ####Jewelry Finisher: JACK ORTIZ ([id number])[facility]AMPUSA [facility] ([facility])[address] [place] [id number] Basophils/100 WBC (Bld) 0.4 % Normal 0.0-2.0 [facility] Comment on above: Performed By: #### L [id number] ####Jewelry Finisher: JACK ORTIZ ([id number])[facility]AMPUSA [facility] ([facility])[address] [place] [id number] Eosinophils (Bld) [#/Vol] 0.1 10*3/uL Normal 0.0-0.5 [facility] Comment on above: Performed By: #### L [id number] ####Jewelry Finisher: JACK ORTIZ ([id number])[facility]AMPUSA [facility] ([facility])[address] [place] [address] [place] Eosinophils/100 WBC (Bld) 2.7 % Normal 0.0-6.0 [facility] Comment on above: Performed By: #### L [id number] ####Jewelry Finisher: JACK ORTIZ ([id number])[facility]AMPUSA [facility] ([facility])[address] [place] [id number] Erythrocyte distribution width (RBC) [Ratio] 20.0 % High 11.5-15.0 [facility] Comment on above: Performed By: #### L [id number] ####Jewelry Finisher: JACK ORTIZ ([id number])[facility]AMPUSA [facility] ([facility])[address] [place] [id number] Hematocrit (Bld) [Volume fraction] 33.8 % Low 40.0-52.0 [facility] Comment on above: Performed By: #### L [id number] ####Jewelry Finisher: JACK ORTIZ ([id number])[facility] CAMPUSMain [facility] ([facility])[address] [place] [id number] Hemoglobin (Bld) [Mass/Vol] 10.4 g/dL Low 13.0-18.0 [facility] Comment on above: Performed By: #### L [id number] ####Jewelry Finisher: JACK ORTIZ ([id number])[facility] CAMPUSMain [facility] ([facility])[address] [place] [id number] IMMATURE GRANS % 0.4 % Normal 0.0-2.0 [facility] Comment on above: Performed By: #### L [id number] ####Jewelry Finisher: JACK ORTIZ ([id number])[facility] CAMPUSMain [facility] ([facility])[address] [place] [id number] IMMATURE GRANS ABSOLUTE 0.0 10*3/uL Normal <0.1 [facility] Comment on above: Performed By: #### L [id number] ####Jewelry Finisher: JACK ORTIZ ([id number])[facility]AMPUSMain [facility] ([facility])[address] [place] [id number] Lymphocytes (Bld) [#/Vol] 0.9 10*3/uL Low 1.0-4.3 [facility] Comment on above: Performed By: #### L [id number] ####Jewelry Finisher: JACK ORTIZ ([id number])[facility] CAMPUSMain [facility] ([facility])[address] [place] [address] [place] Lymphocytes/100 WBC (Bld) 19.2 % Normal 15.0-45.0 [facility] Comment on above: Performed By: #### L [id number] ####Jewelry Finisher: JACK ORTIZ ([id number])[facility] [place] [facility] ([facility])[address] MCH (RBC) [Entitic mass] 23.1 pg Low 26.0-34.0 [facility] Comment on above: Performed By: #### L [id number] ####Jewelry Finisher: JACK ORTIZ ([id number])[facility] [place] [facility] ([facility])[address] [place] [id number] MCHC 30.8 % Normal 30.5-36.0 [facility] Comment on above: Performed By: #### L [id number] ####Jewelry Finisher: JACK ORTIZ ([id number])[facility] ([facility])[address] [place] [id number] MCV (RBC) [Entitic vol] 75.1 fL Low 77.0-99.0 [facility] Comment on above: Performed By: #### L [id number] ####Jewelry Finisher: JACK ORTIZ ([id number])[facility] CAMPUSMain [facility] ([facility])[address] [place] [id number] Monocytes (Bld) [#/Vol] 0.3 10*3/uL Normal 0.0-0.9 [facility] Comment on above: Performed By: #### L [id number] ####Jewelry Finisher: JACK ORTIZ ([id number])[facility] [place] [facility] ([facility])[address] [place] [address] [place] Monocytes/100 WBC (Bld) 6.7 % Normal 5.0-13.0 [facility] Comment on above: Performed By: #### L [id number] ####Jewelry Finisher: JACK ORTIZ ([id number])[facility] [place] [facility] ([facility])[address] [place] [id number] NEUTROPHILS ABSOLUTE 3.5 10*3/uL Normal 1.8-7.5 [facility] Comment on above: Performed By: #### L [id number] ####Jewelry Finisher: JACK ORTIZ ([id number])[facility] CAMPUSMain [place] ([facility])[address] [place] [address] [place] Neutrophils/100 WBC (Bld) 70.6 % Normal 38.0-82.0 [facility] Comment on above: Performed By: #### L [id number] ####Jewelry Finisher: JACK ORTIZ ([id number])[facility] CAMPUSMain [place] ([facility])[address] [place] [id number] NRBC 0.0 /100 WBCs Normal 0.0-2.0 [facility] Comment on above: Performed By: #### L [id number] ####Jewelry Finisher: JACK ORTIZ ([id number])[facility] CAMPUSMain [facility] ([facility])[address] [place] [id number] Platelet mean volume (Bld) [Entitic vol] 8.8 fL Low 9.0-12.7 [facility] Comment on above: Result Comment: MPV is a calculated measurement using platelet volume ratio Performed By: #### L [id number] ####Jewelry Finisher: JACK ORTIZ ([id number])[facility] CAMPUSMain [place] ([facility])[address] [place] [id number] Platelets (Bld) [#/Vol] 123 10*3/uL Low 140-440 [facility] Comment on above: Performed By: #### L [id number] ####Jewelry Finisher: JACK ORTIZ ([id number])[facility]AMPUSMain [place] [facility] ([facility])[address] [place] [address] [place] RBC (Bld) [#/Vol] 4.50 10*6/uL Normal 4.40-5.90 [facility] Comment on above: Performed By: #### L [id number] ####Jewelry Finisher: JACK ORTIZ ([id number])[facility]AMPUSMain [place] [facility] ([facility])[address] [place] [address] [place] WBC (Bld) [#/Vol] 4.9 10*3/uL Normal 3.6-10.7 [facility] Comment on above: Performed By: #### L [id number] ####Jewelry Finisher: JACK ORTIZ ([id number])[facility]AMPUSMain [place] ([facility])[address] COMPREHENSIVE METABOLIC PANE Eduardo 02-11-2024 Albumin [Mass/Vol] 3.0 g/dL Low 3.5-5.0 [facility] Comment on above: Performed By: #### L AB17, LAB46 ####Jewelry Finisher: JACK ORTIZ ([id number])[facility]AMPUSMain [place] ([place])[address] ALP [Catalytic activity/Vol] 212 U/L High 38-126 [facility] Comment on above: Performed By: #### L AB17, LAB46 ####Jewelry Finisher: JACK ORTIZ ([id number])[facility]AMPUSMain [place] [facility] ([facility])[address] [place] [address] [place] ALT [Catalytic activity/Vol] 26 U/L Normal 0-49 [facility] Comment on above: Performed By: #### L AB17, LAB46 ####Jewelry Finisher: JACK ORTIZ ([id number])[facility]AMPUSMain [place] ([facility])[address] Anion gap [Moles/Vol] 10 mmol/L Normal 3-13 [facility] Comment on above: Performed By: #### L AB17, LAB46 ####Jewelry Finisher: JACK ORTIZ ([id number])[facility] CAMPUSMain [facility] ([facility])[address] [place] [address] [place] AST [Catalytic activity/Vol] 103 U/L High 15-46 [facility] Comment on above: Performed By: #### L AB17, LAB46 ####Jewelry Finisher: JACK ORTIZ ([id number])[facility] CAMPUSMain [facility] ([facility])[address] [place] [address] [place] Bilirubin [Mass/Vol] 0.4 mg/dL Normal 0.2-1.3 [facility] Comment on above: Performed By: #### L AB17, LAB46 ####Jewelry Finisher: JACK ORTIZ ([id number])[facility]USMain [place] [facility] ([facility])[address] Calcium [Mass/Vol] 8.2 mg/dL Low 8.4-10.4 [facility] Comment on above: Performed By: #### L AB17, LAB46 ####Jewelry Finisher: JACK ORTIZ ([id number])[facility]USMain [place] [facility] ([facility])[address] [place] [id number] Chloride [Moles/Vol] 102 mmol/L Normal 98-107 [facility] Comment on above: Performed By: #### Abdelrahman MOSES17, LAB46 ####Jewelry Finisher: JACK ORTIZ ([id number])[facility]USMain [place] [facility] ([facility])[address] [place] [address] [place] CO2 [Moles/Vol] 30 mmol/L Normal 22-30 [facility] Comment on above: Performed By: #### L AB17, LAB46 ####Jewelry Finisher: JACK ORTIZ ([id number])[facility]USMain [place] [facility] ([facility])[address] [place] [id number] Creatinine [Mass/Vol] 0.57 mg/dL Low 0.66-1.25 [facility] Comment on above: Performed By: #### L AB17, LAB46 ####Jewelry Finisher: JACK ORTIZ ([id number])[facility]USMain [place] [facility] ([facility])[address] [place] [address] GLOMERULAR FILTRATION RATE ML/MIN/1.73 SQ M.PREDICTED >90.0 Normal >60.0 [facility] Comment on above: Result Comment: Calc ulation based on the Chronic Kidney Disease Epidemiology Collaboration (CKD-EPI) equation refit without adjustment for race Performed By: #### L AB17, LAB46 ####Jewelry Finisher: JACK ORTIZ ([id number])[facility]USMain [place] [facility] ([facility])[address] [place] [address] [place] Glucose [Mass/Vol] 87 mg/dL Normal 70-100 [facility] Comment on above: Performed By: #### L AB17, LAB46 ####Jewelry Finisher: JACK ORTIZ ([id number])[facility]USMain [place] [facility] ([facility])[address] Potassium [Moles/Vol] 2.9 mmol/L Low 3.5-5.1 [facility] Comment on above: Performed By: #### L AB17, LAB46 ####Jewelry Finisher: JACK ORTIZ ([id number])[facility]USMain [place] [facility] ([facility])[address] [place] [address] [place] Protein [Mass/Vol] 6.7 g/dL Normal 6.3-8.2 [facility] Comment on above: Performed By: #### L AB17, LAB46 ####Jewelry Finisher: JACK ORTIZ ([id number])[facility]USMain [place] [facility] ([facility])[address] [place] [address] [place] Sodium [Moles/Vol] 142 mmol/L Normal 135-145 [facility] Comment on above: Performed By: #### L AB17, LAB46 ####Jewelry Finisher: JACK ORTIZ ([id number])[facility]USMain [place] [facility] ([facility])[address] [place] [address] [place] Urea nitrogen [Mass/Vol] 11 mg/dL Normal 9-20 [facility] Comment on above: Performed By: #### L AB17, LAB46 ####Jewelry Finisher: JACK ORTIZ ([id number])[facility]USMain [place] [facility] ([facility])[address] [place] [address] 3D RECONSTRUCTIONon 02-10 CT 3D RECONSTRUCTION Normal [facility] CT CERVICAL SPINE WO IV CONT RASTon 02-11-2024 CT CERVICAL SPINE WO IV CONTRAST Normal [facility] CT Cervical spine WO contras ton 02-11-2024 [...] Moderate opacification of the right maxillary sinus. [facility] Bethel Hansen MD - 02/11/2024 Patient [...] test result (CTR). Findings were communicated via [employer] secure chat with receipt to [facility] [...] Electronically Signed Date/Time: 02/11/2024 1:41 PM EDT [facility] Radiology Study observation (narrative) Deandre tejeda CT HEAD WO IV CONTRASTon CT HEAD WO IV CONTRAST Normal [facility] CT HEAD WO IV CONTRAST Normal [facility] CT Head WO contraston 2023 1. [...] Electronically Signed Date/Time: 02/11/2024 6:27 PM EDT [facility]: EL SM[facility] 1980 [id number] Exam Date/Time: 02/11/2024 18:14 Procedure: CT HEAD [...] orbital swelling and mild right globe proptosis. [facility] Vlad Otero M D - 02/11/2024 Patient Name: EL SMITH : 1980 [id number] Exam Date/Time: 02/11/2024 18:14 Procedure: CT HEAD [...] Electronically Signed Date/Time: 02/11/2024 6:27 PM EDT [facility] Radiology Study observation (narrative) [facility] Patient Name: EL SMITH : [...] test result (CTR). Findings were communicated via [employer] secure chat with receipt to [facility] [...] Electronically Signed Date/Time: 02/11/2024 1:41 PM EDT [facility] Radiology Study observation (narrative) [facility] alth CT Head WO contrastOrdered B y: Vlad Otero on 02-11-2024 [facility] Work Phone: CT MAXILLOFACIAL WO IV CONTR Buffy 02-11-2024 CT MAXILLOFACIAL WO IV CONTRAST Normal [facility] CT Maxillofacial region WO a nd [...] Moderate opacification of the right maxillary sinus. [facility] Bethel Hansen MD - 02/11/2024 Patient [...] test result (CTR). Findings were communicated via [employer] secure chat with receipt to [facility] [...] Electronically Signed Date/Time: 02/11/2024 1:41 PM EDT [facility] Radiology Study observation (narrative) Deandre Randolph alth CT Unspecified body region 3 D post processingon 02-11-2024 Impression: 3-D reconstruction of multiple facial bone fractures for surgical planning purposes. Report Dictated on Electronically Signed By: Christian Du MD Electronically Signed Date/Time: 02/11/2024 7:46 PM EDT [facility] Patient Name: EL SMITH : 1980 [id number] Exam Date/Time: 02/11/2024 19:35 Procedure: CT 3D RECONSTRUCTION Ordering Provider: MCCOLLUM LAURA Reason For Exam: facial bone fractures Examination: CT 3D RECONSTRUCTION Clinical: facial bone fractures Comparison: Maxillofacial CT 02/11/2024 Findings: Serial axial 0.[address] images were reconstructed. 3-D images were reconstructed on a dedicated [employer] workstation. Dose reduction was employed with automated exposure control. Multiple facial bone fractures as previously described. [facility] Christian Du MD - 02/11/2024 Patient Name: EL SMITH : 1980 [id number] Exam Date/Time: 02/11/2024 19:35 Procedure: CT 3D RECONSTRUCTION Ordering Provider: MCCOLLUM LAURA Reason For Exam: facial bone fractures Examination: CT 3D RECONSTRUCTION Clinical: facial bone fractures Comparison: Maxillofacial CT 02/11/2024 Findings: Serial axial 0.[address] images were reconstructed. 3-D images were reconstructed on a dedicated [employer] workstation. Dose reduction was employed with automated exposure control. Multiple facial bone fractures as previously described. IMPRESSION: Impression: 3-D reconstruction of multiple facial bone fractures for surgical planning purposes. Report Dictated on Electronically Signed By: Christian Du MD Electronically Signed Date/Time: 02/11/2024 7:46 PM EDT [facility] Radiology Study observation (narrative) Deandre Randolph alth CT Unspecified body region 3 D post processingOrdered By: Christian Du on 02-11-2024 [facility] Work Phone: Comprehensive metabolic 1998 panelon 02-11-2024 Albumin [Mass/Vol] 3 g/dL Low 3.5 - 5.0 g/dL [facility] ALP [Catalytic activity/Vol] 212 U/L High 38 - 126 U/L [facility] ALT [Catalytic activity/Vol] 26 U/L 0 - 49 U/L [facility] Anion gap [Moles/Vol] 10 mmol/L 3 - 13 mmol/L [facility] AST [Catalytic activity/Vol] 103 U/L High 15 - 46 U/L [facility] Bilirubin [Mass/Vol] 0.4 mg/dL 0.2 - 1 .3 mg/dL [facility] Calcium [Mass/Vol] 8.2 mg/dL Low 8.4 - 10. 4 mg/dL [facility] Chloride [Moles/Vol] 102 mmol/L 98 - 10 7 mmol/L [facility] CO2 [Moles/Vol] 30 mmol/L 22 - 30 mmol/L [facility] Creatinine [Mass/Vol] 0.57 mg/dL Low 0.66 - 1.25 mg/dL [facility] GFR/1.73 sq M.predicted (S/P/Bld) [Vol rate/Area] - PINF [facility] Comment on above: Calculation based on the Chronic Kidney Disease Epidemiology Collaboration (CKD-EPI) equation refit without adjustment for race Glucose [Mass/Vol] 87 mg/dL 70 - 100 mg/dL [facility] Potassium [Moles/Vol] 2.9 mmol/L Low 3.5 - 5.1 mmol/L [facility] Protein [Mass/Vol] 6.7 g/dL 6.3 - 8.2 g/dL [facility] Sodium [Moles/Vol] 142 mmol/L 135 - 145 mmol/L [facility] Urea nitrogen [Mass/Vol] 11 mg/dL 9 - 20 mg/dL [facility] Consulton 02-11-2024 Consult Normal [facility] ED Nursing Noteon 02-11-2024 ED Nursing Note Pt drowsy, still arouses to verbal stimuli, mother bedside. IV initiated. Pt states he needs to void. Urinal placed. Melani Fraire RN 02/11/24 1352 Normal [facility] ED Nursing Note Normal [facility] ED Provider Noteon ED Provider Note Normal [facility] ETHANOLon 02-11-2024 ETHANOL IN SER/PLAS 0.224 g/dL High 0.000-0.010 [facility] Comment on above: Result Comment: PAGE Menezes COMMENTS:NOTE: This result is for medical treatment only. Analysis performed using non-forensic procedures. Performed By: #### L [id number], [id number] ####Jewelry Finisher: JACK ORTIZ ([phone])[facility] [place] (SWRLAB)[address] [place] [address] Ethanol (Bld) [Mass/Vol]on 1 Ethanol [Mass/Vol] 0.224 g/dL High 0.000 - 0 .010 g/dL [facility] LACTIC ACID WITH REFLEXon Lactate [Moles/Vol] 1.9 mmol/L Normal 0.7-2.0 [facility] Comment on above: Performed By: #### L [id number] ####Jewelry Finisher: JACK ORTIZ ([phone])[facility] [employer]elal[employer] (SWRLAB)[address] [place] [address] Laboratory - Chemistry and C hemistry - challengeon 02-11-2024 Lactate [Moles/Vol] 1.9 mmol/L 0.7 - 2. 0 mmol/L [facility] Laboratory - Coagulationon 1 PT Coag (Bld) [Time] 11.2 s 9.0 - 12.0 s [facility] No Panel Informationon 02-10 Interpretation and review of laboratory results Abnormal [facility] Interpretation and review of laboratory results Normal [facility] Acute right-sided subarachnoid hemorrhage Acute right-sided facial bone fractures. Poor dentition with dental caries. This represents a critical test result (CTR). Findings were communicated via MyFit secure chat with receipt to BETSY CAMPOS [...] MD Electronically Signed Date/Time: 02/11/2024 1:41 PM [facility] No Panel InformationOrdered By: Bethel Hansen on 02-11-2024 [employer] Phone: PROTHROMBIN TIMEon INR Coag (PPP) [Relative time] 1.0 {INR} Normal 0.9-1.[address] [facility] Comment on above: Result Comment: Ba mmended [...] Myocardial Infarction Performed By: #### L [id number] ####Jewelry Finisher: JACK ORTIZ ([phone])[facility] [place] (SWRLAB)[address] PT Coag (PPP) [Time] 11.2 s Normal 9.0-12.0 [facility] Comment on above: Performed By: #### L [id number] ####Jewelry Finisher: JACK ORTIZ ([id number])[facility] [place] (SWRLAB)[address] [place] [address] PT Coag (Bld) [Time]on 02-10 INR Coag (PPP) [Relative time] 1 {INR} 0.9 - 1.1 [facility] Comment on above: Recommended Anticoag ulant Therapy: [...] Interpretation and review of laboratory results Normal [facility] XR Chest Single viewon 02-10 FINDINGS/IMPRESSION: Limitations: [...] Date/Time: 02/11/2024 1:16 PM T [facility] Patient Name: EL SMITH : 1980 Exam Date/Time: 02/11/2024 13:27 Procedure: XR CHEST 1 VIEW Ordering Provider: CAMPOS MICHAEL Reason For Exam: trauma CHEST - PORTABLE: CLINICAL INDICATION: Trauma. Chest pain. TECHNIQUE: Portable AP COMPARISON: 01/28/2024. [facility] Fe Finnegan MD - 02/11/2024 [facility] 1980 [id number] Exam Date/Time: 02/11/2024 13:27 Procedure: XR CHEST [...] Electronically Signed Date/Time: 02/11/2024 1:16 PM EDT [facility] Radiology Study observation (narrative) [facility] XR Chest Single viewOrdered By: Fe Finnegan on 02-11-2024 [facility] Work Phone: CBC W Auto Differential pane l (Bld)Ordered By: Cale Still on 02-08-2024 Erythrocyte distribution width (RBC) [Ratio] 19.2 % High 11.5 - 15.0 % [facility] Hematocrit (Bld) [Volume fraction] 36.5 % Low 40.0 - 52.0 % [facility] Hemoglobin (Bld) [Mass/Vol] 11.8 g/dL Low 13.0 - 18.0 g/dL [facility] Interpretation and review of laboratory results Abnormal [facility] MCH (RBC) [Entitic mass] 23.2 pg Low 26.0 - 34.0 pg [facility] MCHC (RBC) [Mass/Vol] 32.3 % 30.5 - 36.0 % [facility] MCV (RBC) [Entitic vol] 71.9 fL Low 77.0 - 99.0 fL [facility] Platelet mean volume (Bld) [Entitic vol] 8.7 fL Low 9.0 - 12.7 fL [facility] Platelets (Bld) [#/Vol] 129 10*3/uL Low 140 - 440 10*3/uL [facility] RBC (Bld) [#/Vol] 5.08 10*6/uL 4.40 - 5.9 0 10*6/uL [facility] WBC (Bld) [#/Vol] 5.9 10*3/uL 3.6 - 10.7 10*3/uL [facility] CBC WITH AUTO DIFFERENTIALon 02-08-2024 Erythrocyte distribution width (RBC) [Ratio] 19.2 % High 11.5-15.0 [facility] Comment on above: Performed By: #### L [id number], [id number] ####Jewelry Finisher: SALTY PRESCOTT ([id number])[facility] ([facility])[address] [place] [address] Hematocrit (Bld) [Volume fraction] 36.5 % Low 40.0-52.0 [facility] Comment on above: Performed By: #### L [id number], [id number] ####Jewelry Finisher: SALTY PRESCOTT ([id number])[facility] ([facility])[address] [place] [address] Hemoglobin (Bld) [Mass/Vol] 11.8 g/dL Low 13.0-18.0 [facility] Comment on above: Performed By: #### L [id number], [id number] ####Jewelry Finisher: SALTY PRESCOTT ([id number])[facility] ([facility])[address] MCH (RBC) [Entitic mass] 23.2 pg Low 26.0-34.0 [facility] Comment on above: Performed By: #### L [id number], [id number] ####Jewelry Finisher: SALTY PRESCOTT ([id number])[facility] [place] (SBHLAB)[address] MCHC 32.3 % Normal 30.5-36.0 [facility] Comment on above: Performed By: #### L [id number], [id number] ####Jewelry Finisher: SALTY PRESCOTT ([id number])[facility] [place] (SBHLAB)[address] MCV (RBC) [Entitic vol] 71.9 fL Low 77.0-99.0 [facility] Comment on above: Performed By: #### L [id number], [id number] ####Jewelry Finisher: SALTY PRESCOTT ([id number])[facility]USA [place] (SBHLAB)[address] Platelet mean volume (Bld) [Entitic vol] 8.7 fL Low 9.0-12.7 [facility] Comment on above: Performed By: #### L [id number], [id number] ####Jewelry Finisher: SALTY PRESCOTT ([id number])[facility] CAMPUSA [place] (SBHLAB)[address] Platelets (Bld) [#/Vol] 129 10*3/uL Low 140-440 [facility] Comment on above: Performed By: #### L [id number], [id number] ####Jewelry Finisher: SALTY PRESCOTT ([id number])[facility]AMPUSA [place] (SBHLAB)[address] RBC (Bld) [#/Vol] 5.08 10*6/uL Normal 4.40-5.90 [facility] Comment on above: Performed By: #### L [id number], [id number] ####Jewelry Finisher: SALTY PRESCOTT ([id number])[facility]AMPUSA [place] (SBHLAB)[address] [place] [address] [place] WBC (Bld) [#/Vol] 5.9 10*3/uL Normal 3.6-10.7 [facility] Comment on above: Performed By: #### L [id number], [id number] ####Jewelry Finisher: SALTY PRESCOTT ([id number])[place] (SBHLAB)[address] COMPREHENSIVE METABOLIC PANE Eduardo 02-08-2024 Albumin [Mass/Vol] 3.3 g/dL Low 3.5-5.0 [facility] Comment on above: Performed By: #### L AB17, [id number], LAB46 ####Jewelry Finisher: SALTY PRESCOTT ([id number])[facility]USA [place] (SBHLAB)[address] ALP [Catalytic activity/Vol] 191 U/L High 38-126 [facility] Comment on above: Performed By: #### Abdelrahman AB17, [id number], LAB46 ####Jewelry Finisher: SALTY PRESCOTT ([id number])[facility]USA [place] (SBHLAB)[address] ALT [Catalytic activity/Vol] 15 U/L Normal 0-49 [facility] Comment on above: Performed By: #### L AB17, [id number], LAB46 ####Jewelry Finisher: SALTY PRESCOTT ([id number])[facility]USA [place] (SBHLAB)[address] Anion gap [Moles/Vol] 11 mmol/L Normal 3-13 [facility] Comment on above: Performed By: #### L AB17, [id number], LAB46 ####Jewelry Finisher: SALTY PRESCOTT ([id number])[facility] CAMPUSA [place] (SBHLAB)[address] [place] [address] [place] AST [Catalytic activity/Vol] 44 U/L Normal 15-46 [facility] Comment on above: Performed By: #### L AB17, [id number], LAB46 ####Jewelry Finisher: SALTY PRESCOTT ([id number])[facility]AMPUSA [place] (SBHLAB)[address] Bilirubin [Mass/Vol] 0.6 mg/dL Normal 0.2-1.3 [facility] Comment on above: Performed By: #### Abdelrahman AB17, [id number], LAB46 ####Jewelry Finisher: SALTY PRESCOTT ([id number])[facility] CAMPUSMain [facility]ENTERTracie (SBHLAB)[address] Calcium [Mass/Vol] 7.9 mg/dL Low 8.4-10.4 [facility] Comment on above: Performed By: #### L AB17, [id number], LAB46 ####Jewelry Finisher: SALTY PRESCOTT ([id number])[facility] CAMPUSMain [facility]ENTERTracie (SBHLAB)[address] Chloride [Moles/Vol] 98 mmol/L Normal 98-107 [facility] Comment on above: Performed By: #### Abdelrahman MEEKS, [id number], LAB46 ####Jewelry Finisher: SALTY PRESCOTT ([id number])[facility] CAMPUSMain [facility]ENTERTr[facility] (SBHLAB)[address] CO2 [Moles/Vol] 31 mmol/L High 22-30 [facility] Comment on above: Performed By: #### L AB17, [id number], LAB46 ####Jewelry Finisher: SALTY PRESCOTT ([id number])[facility] ([facility])[address] Creatinine [Mass/Vol] 0.46 mg/dL Low 0.66-1.25 [facility] Comment on above: Performed By: #### L AB17, [id number], LAB46 ####Jewelry Finisher: SALTY PRESCOTT ([id number])[facility] (SB[facility])[address] GLOMERULAR FILTRATION RATE ML/MIN/1.73 SQ M.PREDICTED >90.0 Normal >60.0 [facility] Comment on above: Result Comment: Calc ulation based on the Chronic Kidney Disease Epidemiology Collaboration (CKD-EPI) equation refit without adjustment for race Performed By: #### L AB17, [id number], LAB46 ####Jewelry Finisher: SALTY CERVANTESCER ([id number])[facility] CAMPUSMain [facility]Tr[facility] (SBHLAB)[address] Glucose [Mass/Vol] 100 mg/dL Normal 70-100 [facility] Comment on above: Performed By: #### L AB17, [id number], LAB46 ####Jewelry Finisher: SALTY PRESCOTT ([id number])[facility] CAMPUSMain [facility]ERN (SBHLAB)[address] Potassium [Moles/Vol] 2.8 mmol/L Low 3.5-5.1 [facility] Comment on above: Performed By: #### Abdelrahman AB17, [id number], LAB46 ####Jewelry Finisher: SALTY TRUJILLOKENTONMICHAEL ([phone])[facility] (SBHLAB)[address] Protein [Mass/Vol] 7.0 g/dL Normal 6.3-8.2 [facility] Comment on above: Performed By: #### Abdelrahman AB17, [id number], LAB46 ####Jewelry Finisher: SALTY PRESCOTT ([id number])[facility] CAMPUSMain [place] (HLAB)[address] Sodium [Moles/Vol] 141 mmol/L Normal 135-145 [facility] Comment on above: Performed By: #### Abdelrahman MEEKS, [id number], LAB46 ####Jewelry Finisher: SALTY PRESCOTT ([id number])[facility] CAMPUSMain [place] (SBHLAB)[address] [place] [address] [place] Urea nitrogen [Mass/Vol] 7 mg/dL Low 9-20 [facility] Comment on above: Performed By: #### L AB17, [id number], LAB46 ####Jewelry Finisher: SALTY PRESCOTT ([id number])[facility] (SBHLAB)[address] ABDOMEN PELVIS WO IV CONT RASTon 02-08-2024 CT ABDOMEN PELVIS WO IV CONTRAST Normal [facility] CT Abdomen WO contraston 1. There are small bilateral renal calculi without hydronephrosis, unchanged since last exam 11 days ago. 2. Bulging discs last two levels with mild anterior wedging L1 unchanged, enlarged common bile duct unchanged, small probable right lobe hepatic cyst unchanged. Report Dictated on Electronically Signed By: Fransisco Martin MD Electronically Signed Date/Time: 02/08/2024 5:53 AM EDT [facility] Patient Name: EL SMITH : [...] two levels, mild anterior wedging L1 unchanged. [facility] Fransisco Martin MD - 02/08/2024 Patient [...] Electronically Signed Date/Time: 02/08/2024 5:53 AM EDT [facility] Radiology Study observation (narrative) [facility] alth CT Abdomen WO contrastOrdere d By: Fransisco Martin on 02-08-2024 [facility] Work Phone: Comprehensive metabolic 1998 panelon 02-08-2024 Albumin [Mass/Vol] 3.3 g/dL Low 3.5 - 5.0 g/dL [facility] ALP [Catalytic activity/Vol] 191 U/L High 38 - 126 U/L [facility] ALT [Catalytic activity/Vol] 15 U/L 0 - 49 U/L [facility] Anion gap [Moles/Vol] 11 mmol/L 3 - 13 mmol/L [facility] AST [Catalytic activity/Vol] 44 U/L 15 - 46 U/L [facility] Bilirubin [Mass/Vol] 0.6 mg/dL 0.2 - 1 .3 mg/dL [facility] Calcium [Mass/Vol] 7.9 mg/dL Low 8.4 - 10. 4 mg/dL [facility] Chloride [Moles/Vol] 98 mmol/L 98 - 10 7 mmol/L [facility] CO2 [Moles/Vol] 31 mmol/L High 22 - 30 mmol/L [facility] Creatinine [Mass/Vol] 0.46 mg/dL Low 0.66 - 1.25 mg/dL [facility] GFR/1.73 sq M.predicted (S/P/Bld) [Vol rate/Area] - PINF [facility] Comment on above: Calculation based on the Chronic Kidney Disease Epidemiology Collaboration (CKD-EPI) equation refit without adjustment for race Glucose [Mass/Vol] 100 mg/dL 70 - 100 mg/dL [facility] Interpretation and review of laboratory results Abnormal [facility] Potassium [Moles/Vol] 2.8 mmol/L Low 3.5 - 5.1 mmol/L [facility] Protein [Mass/Vol] 7 g/dL 6.3 - 8.2 g/dL [facility] Sodium [Moles/Vol] 141 mmol/L 135 - 145 mmol/L [facility] Urea nitrogen [Mass/Vol] 7 mg/dL Low 9 - 20 mg/dL [facility] ECG 12-LEADon 02-08-2024 ECG 12-LEAD IMPRESSION: Sinus tachycardia Borderline prolonged QT interval Electronically Signed On 02-08-2024 10:32:43 EDT by Betsy Munoz Normal [facility] ED Nursing Noteon 02-08-2024 ED Nursing Note Normal [facility] ED Provider Noteon ED Provider Note Normal [facility] ETHANOLon 02-08-2024 ETHANOL IN SER/PLAS 0.325 g/dL Critically high 0.000-0.010 [facility] Comment on above: Result Comment: PAGE Menezes COMMENTS:NOTE: This result is for medical treatment only. Analysis performed using non-forensic procedures. Performed By: #### L AB17, [id number], LAB46 ####Jewelry Finisher: SALTY PRESCOTT ([id number])[facility] CAMPUSMain [place] ([facility])[address] Ethanol (Bld) [Mass/Vol]Orde red By: Erlin Quintana on 02-08-2024 Ethanol [Mass/Vol] 0.325 g/dL Critically high 0.000 - 0.010 g/dL [facility] Interpretation and review of laboratory results Abnormal [facility] Laboratory - Chemistry and C hemistry - challengeon 02-08-2024 Magnesium [Mass/Vol] 1.2 mg/dL Low 1.6 - 2 .3 mg/dL [facility] Laboratory - Hematology and Cell countson 02-08-2024 Anisocytosis Ql (Bld) Rare Abnormal (none) [facility] Dacrocytes LM Ql (Bld) Rare Abnormal (none) [facility] Hypochromia Ql (Bld) Rare Abnormal (none) [facility] Lymphocytes (Bld) [#/Vol] 0.1 10*3/uL Low 1.0 - 4.3 10*3/uL [facility] Lymphocytes/100 WBC (Bld) 2 % Low 15 - 45 % [facility] Monocytes (Bld) [#/Vol] 0.3 10*3/uL 0.0 - 0.9 10*3/uL [facility] Monocytes/100 WBC (Bld) 5 % 5 - 13 % [facility] Neutrophils (Bld) [#/Vol] 5.4 10*3/uL 1.8 - 7.5 10*3/uL [facility] Ovalocytes LM Ql (Bld) Rare Abnormal (none) [facility] Poikilocytosis LM Ql (Bld) Slight Abnormal (none) [facility] RBC morphology finding Nom (Bld) abnormal [facility] Segmented neutrophils/100 WBC (Bld) 92 % High 38 - 82 % [facility] Stomatocytes LM Ql (Bld) Rare Abnormal (none) [facility] Target cells LM Ql (Bld) Rare Abnormal (none) [facility] Variant lymphocytes (Bld) [#/Vol] 0.1 10*3/uL High NINF - 0.0 10*3/uL [facility] Variant lymphocytes/100 WBC (Bld) 1 % High NINF - 0 % [facility] MAGNESIUMon 02-08-2024 Magnesium [Mass/Vol] 1.2 mg/dL Low 1.6-2.3 [facility] Comment on above: Performed By: #### L AB17, [id number], LAB46 ####Jewelry Finisher: SALTY BAUTISTAMICHAEL ([id number])[facility] CAMPUSA [place] (SBHLAB)[address] MANUAL DIFFERENTIAL (CELLAVI LEONELA)on 02-08-2024 ANISOCYTOSIS PRESENCE IN BLOOD BY LIGHT MICROSCOPY Rare Abnormal (none) [facility] Comment on above: Performed By: #### L [id number], [id number] ####Jewelry Finisher: SALTY TRUJILLOMAY ([id number])[facility] CAMPUSA [place] (SBHLAB)[address] BAND NEUTROPHILS TOTAL PER COUNTED LEUKOCYTES BY MANUAL COUNT Normal [facility] Comment on above: Performed By: #### L [id number], [id number] ####Jewelry Finisher: SALTY TRUJILLOMAY ([phone])[facility]AMPUSA [place] (SBHLAB)[address] BASOPHILS TOTAL PER COUNTED LEUKOCYTES BY MANUAL COUNT Normal [facility] Comment on above: Performed By: #### L [id number], [id number] ####Jewelry Finisher: SALTY TRUJILLOMAY ([id number])[facility]USA [place] (SBHLAB)[address] BLASTS TOTAL PER COUNTED LEUKOCYTES BY MANUAL COUNT Normal [facility] Comment on above: Performed By: #### L [id number], [id number] ####Jewelry Finisher: SALTY TRUJILLOMAY ([id number])[facility] CAMPUSA [place] (SBHLAB)[address] [place] [address] [place] DACROCYTES PRESENCE IN BLOOD BY LIGHT MICROSCOPY Rare Abnormal (none) [facility] Comment on above: Performed By: #### L [id number], [id number] ####Jewelry Finisher: SALTY BAUTISTAMICHAEL ([id number])[facility]AMPUSA [place] (SBHLAB)[address] EOSINOPHILS TOTAL PER COUNTED LEUKOCYTES BY MANUAL COUNT Normal [facility] Comment on above: Performed By: #### L [id number], [id number] ####Jewelry Finisher: SALTY CERVANTESCER ([id number])[facility]AMPUSA [place] (SBHLAB)[address] HYPOCHROMIA (PRESENCE) IN BLOOD BY LIGHT MICROSCOPY Rare Abnormal (none) [facility] Comment on above: Performed By: #### L [id number], [id number] ####Jewelry Finisher: SALTY CERVANTESCER ([id number])[facility]AMPUSA [place] (SBHLAB)[address] LYMPHOCYTE VARIANT/100 LEUKOCYTES IN BLOOD- CELLAVISION 1 % High <=0 [facility] Comment on above: Performed By: #### L [id number], [id number] ####Jewelry Finisher: SALTY TRUJILLOMAY ([id number])[facility] CAMPUSA [place] (SBHLAB)[address] [place] [address] [place] LYMPHOCYTES (10*3/UL) IN BLOOD-CELLAVISION 0.1 10*3/uL Low 1.0-4.3 [facility] Comment on above: Performed By: #### L [id number], [id number] ####Jewelry Finisher: SALTY PRESCOTT ([id number])[facility] CAMPUSA [place] (SBHL[facility])[address] [place] [address] [place] LYMPHOCYTES TOTAL PER COUNTED LEUKOCYTES BY MANUAL COUNT 2 Normal [facility] Comment on above: Performed By: #### L [id number], [id number] ####Jewelry Finisher: SALTY BAUTISTAMICHAEL ([id number])[facility]USA [place] (SBHLAB)[address] [place] [address] [place] LYMPHOCYTES/100 LEUKOCYTES IN BLOOD-CELLAVISION 2 % Low 15-45 [facility] Comment on above: Performed By: #### L [id number], [id number] ####Jewelry Finisher: SALTY BAUTISTAMICHAEL ([id number])[facility] CAMPUSA [place] (SBHL[facility])[address] [place] [address] [place] METAMYELOCYTES TOTAL PER COUNTED LEUKOCYTES BY MANUAL COUNT Normal [facility] Comment on above: Performed By: #### L [id number], [id number] ####Jewelry Finisher: SALTY PRESCOTT ([phone])[facility] [place] ([facility])[address] [place] [address] [place] MONOCYTES (10*3/UL) IN BLOOD-CELLAVISION 0.3 10*3/uL Normal 0.0-0.9 [facility] Comment on above: Performed By: #### L [id number], [id number] ####Jewelry Finisher: SALTY PRESCOTT ([phone])[facility]USA [place] ([facility])[address] MONOCYTES TOTAL PER COUNTED LEUKOCYTES BY MANUAL COUNT 5 Normal [facility] Comment on above: Performed By: #### L [id number], [id number] ####Jewelry Finisher: SALTY PRESCOTT ([id number])[facility] [place] ([facility])[address] [place] [address] [place] MONOCYTES/100 LEUKOCYTES IN BLOOD-ИВАН 5 % Normal 5-13 [facility] Comment on above: Performed By: #### L [id number], [id number] ####Jewelry Finisher: SALTY PRESCOTT ([id number])[facility]USA [place] ([facility])[address] MYELOCYTES COUNTED BY MANUAL COUNT Normal [facility] Comment on above: Performed By: #### L [id number], [id number] ####Jewelry Finisher: SALTY PRESCOTT ([phone])[facility]USA [place] ([facility])[address] NEUTROPHILS TOTAL PER COUNTED LEUKOCYTES BY MANUAL COUNT 92 Normal [facility] Comment on above: Performed By: #### L [id number], [id number] ####Jewelry Finisher: SALTY PRESCOTT ([id number])[facility]USA [place] ([facility])[address] OVALOCYTES PRESENCE IN BLOOD BY LIGHT MICROSCOPY Rare Abnormal (none) [facility] Comment on above: Performed By: #### L [id number], [id number] ####Jewelry Finisher: SALTY PRESCOTT ([id number])[facility]AMPUSA [place] ([facility])[address] [place] [address] [place] POIKILOCYTOSIS (PRESENCE) IN BLOOD BY LIGHT MICROSCOPY Slight Abnormal (none) [facility] Comment on above: Performed By: #### L [id number], [id number] ####Jewelry Finisher: SALTY PRESCOTT ([id number])[facility]USA [place] ([facility])[address] [place] [address] [place] PROMYELOCYTES TOTAL PER COUNTED LEUKOCYTES BY MANUAL COUNT Normal [facility] Comment on above: Performed By: #### L [id number], [id number] ####Jewelry Finisher: SALTY PRESCOTT ([id number])[facility] CAMPUSA [facility]ERN (SB[facility]AB)[address] [place] [address] [place] RBC MORPHOLOGY IN BLOOD abnormal Normal [facility] Comment on above: Performed By: #### L [id number], [id number] ####Jewelry Finisher: SALTY BAUTISTAMICHAEL ([id number])[facility] [place] [facility] [place] ([facility])[address] [place] [address] [place] SEGMENTED NEUTROPHILS (10*3/UL) IN BLOOD-CELLAVISION 5.4 10*3/uL Normal 1.8-7.5 [facility] Comment on above: Performed By: #### L [id number] ####Jewelry Finisher: SALTY PRESCOTT ([id number])[facility] [place] [facility] ([facility])[address] [place] [address] [place] SEGMENTED NEUTROPHILS/100 LEUKOCYTES-CE 92 % High 38-82 [facility] Comment on above: Performed By: #### L [id number] ####Jewelry Finisher: SALTY PRESCOTT ([id number])[facility] [place] [facility] [place] ([facility])[address] [place] [address] [place] STOMATOCYTES IN BLOOD BY LIGHT MICROSCOPY Rare Abnormal (none) [facility] Comment on above: Performed By: #### L [id number], [id number] ####Jewelry Finisher: SALTY PRESCOTT ([phone])[facility]AMP[facility] [place])[address] TARGET CELLS IN BLOOD BY LIGHT MICROSCOPY Rare Abnormal (none) [facility] Comment on above: Performed By: #### L [id number], [id number] ####Jewelry Finisher: SALTY PRESCOTT ([phone])[facility] [place] (SB[place])[address] UNCLASSIFIED CELLS TOTAL PER COUNTED LEUKOCYTES BY MANUAL COUNT Normal [facility] Comment on above: Performed By: #### L [id number], [id number] ####Jewelry Finisher: SALTY PRESCOTT ([id number])[facility] [place] ([place])[address] VARIANT LYMPHOCYTES (10*3/UL) IN BLOOD-CELLAVISION 0.1 10*3/uL High <=0.0 [facility] Comment on above: Performed By: #### L [id number], [id number] ####Jewelry Finisher: SALTY PRESCOTT ([id number])[facility] [place] (SB[place])[address] VARIANT LYMPHOCYTES TOTAL PER COUNTED LEUKOCYTES BY MANUAL COUNT 1 Normal [facility] Comment on above: Performed By: #### L [id number], [id number] ####Jewelry Finisher: SALTY PRESCOTT ([id number])[facility]AMP[facility] [place] (SBHLAB)155 [place] [address] [place] Magnesium [Mass/Vol]on 02-07 Interpretation and review of laboratory results Abnormal [facility] [employer] No Panel InformationOrdered By: Betsy Munoz on 02-08-2024 P [place] 39 degrees [facility] [employer] Work Phone: PA Interval 139 ms [facility] [employer] Work Phone: QRS [place] 54 degrees [facility] [employer] Work Phone: QRSD Interval [address] [facility] [employer] Work Phone: QT Interval 375 ms [facility] [employer] Work Phone: QTC Interval 498 ms [facility] [employer] Work Phone: T Wave [place] 54 degrees [employer] Work Phone: [employer] Work Phone: No Panel Informationon 02-07 Sinus tachycardia Borderline prolonged QT interval Electronically Signed On 02-08-2024 10:32:43 EDT by Betsy Munoz Betsy Sebastian MD - 02/08/2024 IMPRESSION: Sinus tachycardia Borderline prolonged QT interval Electronically Signed On 02-08-2024 10:32:43 EDT by Betsy Munoz [facility] [employer] Atypical Lymphocytes Manual [address] [facility] Bands Manual [facility] Basophils Manual [facility] al[facility] Blasts Manual [facility] Eosinophils Manual [facility] Health Interpretation and review of laboratory results Abnormal [facility] Health Lymphocytes Manual 2 [facility] Health Metamyelocytes Manual [facility] Monocytes Manual [address] [facility] [facility] Myelocytes Manual [facility] ealth Neutrophils Manual 92 [facility] Health Promyelocytes Manual [facility] Health Unclassified Cells, Manual [facility] Health Vital signsOrdered By: Omid Munoz on 02-08-2024 Heart rate 106 /min bpm [facility] [employer] Work Phone: CBC W Auto Differential pane l (Bld)Ordered By: Salina Calvo on 01-28-2024 Basophils (Bld) [#/Vol] 0.1 10*3/uL 0.0 - 0.2 10*3/uL [facility] Basophils/100 WBC (Bld) 1.1 % 0.0 - 2.0 % [facility] Eosinophils (Bld) [#/Vol] 0.0 10*3/uL 0.0 - 0.5 10*3/uL [facility] Eosinophils/100 WBC (Bld) 0.1 % 0.0 - 6.0 % [facility] Erythrocyte distribution width (RBC) [Ratio] 16.3 % High 11.5 - 15.0 % [facility] Hematocrit (Bld) [Volume fraction] 37.5 % Low 40.0 - 52.0 % [facility] Hemoglobin (Bld) [Mass/Vol] 11.8 g/dL Low 13.0 - 18.0 g/dL [facility] Immature granulocytes (Bld) [#/Vol] 0.0 10*3/uL NINF - 0.1 10*3/uL [facility] Immature granulocytes/100 WBC (Bld) 0.1 % 0.0 - 2.0 % [facility] Interpretation and review of laboratory results Abnormal [facility] Lymphocytes (Bld) [#/Vol] 2.3 10*3/uL 1.0 - 4.3 10*3/uL [facility] Lymphocytes/100 WBC (Bld) 31.1 % 15.0 - 45.0 % [facility] MCH (RBC) [Entitic mass] 22.8 pg Low 26.0 - 34.0 pg [facility] MCHC (RBC) [Mass/Vol] 31.5 % 30.5 - 36.0 % [facility] MCV (RBC) [Entitic vol] 72.4 fL Low 77.0 - 99.0 fL [facility] Monocytes (Bld) [#/Vol] 0.8 10*3/uL 0.0 - 0.9 10*3/uL [facility] Monocytes/100 WBC (Bld) 11.2 % 5.0 - 13.0 % [facility] Neutrophils (Bld) [#/Vol] 4.1 10*3/uL 1.8 - 7.5 10*3/uL [facility] Neutrophils/100 WBC (Bld) 56.4 % 38.0 - 82.0 % [facility] Nucleated RBC/100 WBC (Bld) [Ratio] 0.0 % [facility] Platelet mean volume (Bld) [Entitic vol] 8.9 fL Low 9.0 - 12.7 fL [facility] Comment on above: MPV is a calculated measurement using platelet volume ratio Platelets (Bld) [#/Vol] 285 10*3/uL 140 - 440 10*3/uL [facility] RBC (Bld) [#/Vol] 5.18 10*6/uL 4.40 - 5.9 0 10*6/uL [facility] WBC (Bld) [#/Vol] 7.2 10*3/uL 3.6 - 10.7 10*3/uL [facility] CBC WITH AUTO DIFFERENTIALon 01-28-2024 Basophils (Bld) [#/Vol] 0.1 10*3/uL Normal 0.0-0.2 [facility] Comment on above: Performed By: #### L [id number] ####Jewelry Finisher: JACK ORTIZ ([phone])[facility] [place] (SWRLAB)[address] [place] [address] [place] Basophils/100 WBC (Bld) 1.1 % Normal 0.0-2.0 [facility] Comment on above: Performed By: #### L [id number] ####Jewelry Finisher: JACK ORTIZ ([id number])[facility] [place] (SWRLAB)[address] [place] [id number] Eosinophils (Bld) [#/Vol] 0.0 10*3/uL Normal 0.0-0.5 [facility] Comment on above: Performed By: #### L [id number] ####Jewelry Finisher: JACK ORTIZ ([id number])[facility] [place] (SWRL[place])[address] [place] [address] [place] Eosinophils/100 WBC (Bld) 0.1 % Normal 0.0-6.0 [facility] Comment on above: Performed By: #### L [id number] ####Jewelry Finisher: JACK ORTIZ ([id number])[facility] [place] (SWRL[place])[address] [place] [id number] Erythrocyte distribution width (RBC) [Ratio] 16.3 % High 11.5-15.0 [facility] Comment on above: Performed By: #### L [id number] ####Jewelry Finisher: JACK ORTIZ ([id number])[facility] [place] (SWRLAB)[address] Hematocrit (Bld) [Volume fraction] 37.5 % Low 40.0-52.0 [facility] Comment on above: Performed By: #### L [id number] ####Jewelry Finisher: JACK ORTIZ ([id number])[facility] [place] (SWRL[place])[address] [place] [id number] Hemoglobin (Bld) [Mass/Vol] 11.8 g/dL Low 13.0-18.0 [facility] Comment on above: Performed By: #### L [id number] ####Jewelry Finisher: JACK ORTIZ ([id number])[facility] CAMPUSMain [place] (SWRLAB)[address] [place] [id number] IMMATURE GRANS % 0.1 % Normal 0.0-2.0 [facility] Comment on above: Performed By: #### L [id number] ####Jewelry Finisher: JACK ORTIZ ([id number])[facility] CAMPUSMain [place] (SWRLAB)[address] [place] [id number] IMMATURE GRANS ABSOLUTE 0.0 10*3/uL Normal <0.1 [facility] Comment on above: Performed By: #### L [id number] ####Jewelry Finisher: JACK ORTIZ ([phone])[facility]USMain [place] (SWRL[place])[address] [place] [id number] Lymphocytes (Bld) [#/Vol] 2.3 10*3/uL Normal 1.0-4.3 [facility] Comment on above: Performed By: #### L [id number] ####Jewelry Finisher: JACK ORTIZ ([id number])[facility]USMain [place] (SWRLAB)[address] [place] [id number] Lymphocytes/100 WBC (Bld) 31.1 % Normal 15.0-45.0 [facility] Comment on above: Performed By: #### L [id number] ####Jewelry Finisher: JACK ORTIZ ([phone])[facility]USMain [place] (SWRLAB)[address] [place] [id number] MCH (RBC) [Entitic mass] 22.8 pg Low 26.0-34.0 [facility] Comment on above: Performed By: #### L [id number] ####Jewelry Finisher: JACK ORTIZ ([phone])[facility] CAMPUSA [place] (SWRLAB)[address] [place] [address] [place] MCHC 31.5 % Normal 30.5-36.0 [facility] Comment on above: Performed By: #### L [id number] ####Jewelry Finisher: JACK ORTIZ ([phone])[facility] [place] (SWRL[place])[address] [place] [id number] MCV (RBC) [Entitic vol] 72.4 fL Low 77.0-99.0 [facility] Comment on above: Performed By: #### L [id number] ####Jewelry Finisher: JACK ORTIZ ([id number])[facility] [place] (SWRLAB)[address] [place] [id number] Monocytes (Bld) [#/Vol] 0.8 10*3/uL Normal 0.0-0.9 [facility] Comment on above: Performed By: #### L [id number] ####Jewelry Finisher: JACK ORTIZ ([id number])[facility] [place] (SWRLAB)[address] [place] [address] [place] Monocytes/100 WBC (Bld) 11.2 % Normal 5.0-13.0 [facility] Comment on above: Performed By: #### L [id number] ####Jewelry Finisher: JACK ORTIZ ([id number])[facility] [place] (SWRLAB)[address] [place] [address] [place] NEUTROPHILS ABSOLUTE 4.1 10*3/uL Normal 1.8-7.5 [facility] Comment on above: Performed By: #### L [id number] ####Jewelry Finisher: JACK ORTIZ ([id number])[facility] [place] (SWRL[place])[address] [place] [address] [place] Neutrophils/100 WBC (Bld) 56.4 % Normal 38.0-82.0 [facility] Comment on above: Performed By: #### L [id number] ####Jewelry Finisher: JACK ORTIZ ([id number])[facility]USMain [place] (SWRL[place])[address] [place] [address] [place] NRBC 0.0 /100 WBCs Normal 0.0-2.0 [facility] Comment on above: Performed By: #### L [id number] ####Jewelry Finisher: JACK ORTIZ ([phone])[facility]USMain [place] (SWRL[place])[address] [place] [id number] Platelet mean volume (Bld) [Entitic vol] 8.9 fL Low 9.0-12.7 [facility] Comment on above: Result Comment: MPV is a calculated measurement using platelet volume ratio Performed By: #### L [id number] ####Jewelry Finisher: JACK ORTIZ ([id number])[facility]USMain [place] (SWRLAB)[address] [place] [address] [place] Platelets (Bld) [#/Vol] 285 10*3/uL Normal 140-440 [facility] Comment on above: Performed By: #### L [id number] ####Jewelry Finisher: JACK ORTIZ ([phone])[facility]USMain [place] (SWRL[place])[address] [place] [address] [place] RBC (Bld) [#/Vol] 5.18 10*6/uL Normal 4.40-5.90 [facility] Comment on above: Performed By: #### L [id number] ####Jewelry Finisher: JACK ORTIZ ([phone])[facility]USMain [place] (SWRL[place])[address] [place] [address] [place] WBC (Bld) [#/Vol] 7.2 10*3/uL Normal 3.6-10.7 [facility] Comment on above: Performed By: #### L [id number] ####Jewelry Finisher: JACK ORTIZ ([id number])[facility]USMain [place] (SW[place])[address] COMPREHENSIVE METABOLIC PANE Eduardo 01-28-2024 Albumin [Mass/Vol] 3.8 g/dL Normal 3.5-5.0 [facility] Comment on above: Performed By: #### Abdelrahman MOSES17, LAB99 ####Jewelry Finisher: JACK ORTIZ ([phone])[facility]USMain [place] ([place])[address] ALP [Catalytic activity/Vol] 160 U/L High 38-126 [facility] Comment on above: Performed By: #### Abdelrahman AB17, LAB99 ####Jewelry Finisher: JACK ORTIZ ([id number])[facility]USMain [place] ([place])[address] ALT [Catalytic activity/Vol] 26 U/L Normal 0-49 [facility] Comment on above: Performed By: #### Abdelrahman MOSES17, LAB99 ####Jewelry Finisher: JACK ORTIZ ([phone])[facility]USMain [place] ([place])[address] Anion gap [Moles/Vol] 12 mmol/L Normal 3-13 [facility] Comment on above: Performed By: #### Abdelrahman MEEKS, LAB99 ####Jewelry Finisher: JACK ORTIZ ([phone])[facility]USMain [place] ([place])[address] [place] [address] [place] AST [Catalytic activity/Vol] 76 U/L High 15-46 [facility] Comment on above: Performed By: #### Abdelrahman MOSES17, LAB99 ####Jewelry Finisher: JACK ORTIZ ([id number])[facility]USMain [place] ([place])[address] [place] [address] [place] Bilirubin [Mass/Vol] 0.6 mg/dL Normal 0.2-1.3 [facility] Comment on above: Performed By: #### L AB17, LAB99 ####Jewelry Finisher: JACK ORTIZ ([id number])[facility]USMain [place] ([place])[address] [place] [address] [place] Calcium [Mass/Vol] 8.6 mg/dL Normal 8.4-10.4 [facility] Comment on above: Performed By: #### L AB17, LAB99 ####Jewelry Finisher: JACK ORTIZ ([id number])[facility] [place] ([place])[address] [place] [address] [place] Chloride [Moles/Vol] 95 mmol/L Low 98-107 [facility] Comment on above: Performed By: #### Abdelrahman AB17, LAB99 ####Jewelry Finisher: JACK ORTIZ ([phone])[facility]USMain [place] ([place])[address] [place] [address] [place] CO2 [Moles/Vol] 35 mmol/L High 22-30 [facility] Comment on above: Performed By: #### Abdelrahman MOSES17, LAB99 ####Jewelry Finisher: JACK ORTIZ ([id number])[facility]USMain [place] (SWRL[place])[address] [place] [id number] Creatinine [Mass/Vol] 0.62 mg/dL Low 0.66-1.25 [facility] Comment on above: Performed By: #### Abdelrahman MOSES17, LAB99 ####Jewelry Finisher: JACK ORTIZ ([id number])[facility]USMain [place] (SWRL[place])[address] [place] [id number] GLOMERULAR FILTRATION RATE ML/MIN/1.73 SQ M.PREDICTED >90.0 Normal >60.0 [facility] Comment on above: Result Comment: Calc ulation based on the Chronic Kidney Disease Epidemiology Collaboration (CKD-EPI) equation refit without adjustment for race Performed By: #### L AB17, LAB99 ####Jewelry Finisher: JACK ORTIZ ([id number])[facility]USMain [place] ([place])[address] [place] [address] [place] Glucose [Mass/Vol] 98 mg/dL Normal 70-100 [facility] Comment on above: Performed By: #### L AB17, LAB99 ####Jewelry Finisher: JACK ORTIZ ([id number])[facility]USMain [place] ([place])[address] [place] [address] [place] Potassium [Moles/Vol] 2.9 mmol/L Low 3.5-5.1 [facility] Comment on above: Performed By: #### L AB17, LAB99 ####Jewelry Finisher: JACK ORTIZ ([phone])[facility]USMain [place] ([place])[address] Protein [Mass/Vol] 8.2 g/dL Normal 6.3-8.2 [facility] Comment on above: Performed By: #### L AB17, LAB99 ####Jewelry Finisher: JACK ORTIZ ([phone])[facility]US[facility] [place] ([place])[address] Sodium [Moles/Vol] 142 mmol/L Normal 135-145 [facility] Comment on above: Performed By: #### L AB17, LAB99 ####Jewelry Finisher: JACK ORTIZ ([id number])[facility]USMain [place] (SWRL[place])[address] [place] [id number] Urea nitrogen [Mass/Vol] 8 mg/dL Low 9-20 [facility] Comment on above: Performed By: #### L AB17, LAB99 ####Jewelry Finisher: JACK ORTIZ ([id number])[facility]USMain [place] (SWRL[place])[address] [place] [address] CT ABDOMEN PELVIS WO IV CONT RASTon 01-28-2024 CT ABDOMEN PELVIS WO IV CONTRAST Normal [facility] CT Abdomen WO contraston 1. Bilateral nephrolithiasis. [...] Date/Time: 01/28/2024 11:50 PM EDT [facility] Patient Name: EL SMITH : 1980 [...] the L1 vertebral body, new from comparison. [facility] Tk Trinh MD - 01/28/2024 Patient [...] Electronically Signed Date/Time: 01/28/2024 11:50 PM EDT [facility] Radiology Study observation (narrative) [facility] Comprehensive metabolic 1998 panelon 01-28-2024 Albumin [Mass/Vol] 3.8 g/dL 3.5 - 5.0 g/dL [facility] ALP [Catalytic activity/Vol] 160 U/L High 38 - 126 U/L [facility] ALT [Catalytic activity/Vol] 26 U/L 0 - 49 U/L [facility] Anion gap [Moles/Vol] 12 mmol/L 3 - 13 mmol/L [facility] AST [Catalytic activity/Vol] 76 U/L High 15 - 46 U/L [facility] Bilirubin [Mass/Vol] 0.6 mg/dL 0.2 - 1 .3 mg/dL [facility] Calcium [Mass/Vol] 8.6 mg/dL 8.4 - 10. 4 mg/dL [facility] Chloride [Moles/Vol] 95 mmol/L Low 98 - 10 7 mmol/L [facility] CO2 [Moles/Vol] 35 mmol/L High 22 - 30 mmol/L [facility] Creatinine [Mass/Vol] 0.62 mg/dL Low 0.66 - 1.25 mg/dL [facility] GFR/1.73 sq M.predicted (S/P/Bld) [Vol rate/Area] - PINF [facility] Comment on above: Calculation based on the Chronic Kidney Disease Epidemiology Collaboration (CKD-EPI) equation refit without adjustment for race Glucose [Mass/Vol] 98 mg/dL 70 - 100 mg/dL [facility] Potassium [Moles/Vol] 2.9 mmol/L Low 3.5 - 5.1 mmol/L [facility] Protein [Mass/Vol] 8.2 g/dL 6.3 - 8.2 g/dL [facility] Sodium [Moles/Vol] 142 mmol/L 135 - 145 mmol/L [facility] Urea nitrogen [Mass/Vol] 8 mg/dL Low 9 - 20 mg/dL [facility] ED Nursing Noteon 01-28-2024 ED Nursing Note Normal [facility] ED Provider Noteon ED Provider Note Normal [facility] LIPASEon 01-28-2024 Lipase [Catalytic activity/Vol] 537 U/L High 23-300 [facility] Comment on above: Performed By: #### L AB17, LAB99 ####Jewelry Finisher: JACK ORTIZ ([phone])[facility] (SWRLAB)[address] [place] [id number] Laboratory - Chemistry and C hemistry - challengeon 01-28-2024 Lipase [Catalytic activity/Vol] 537 U/L High 23 - 300 U/L [facility] No Panel Informationon 01-27 Interpretation and review of laboratory results Abnormal [facility] XR Chest Single viewon 01-27 1. Nodular opacities x3 projecting over right inferolateral lung, new in the interval. Correlation with noncontrast CT chest may help in further evaluation, and follow-up suggested. 2. No acute consolidation. Report Dictated on Electronically Signed By: Tk Trinh MD Electronically Signed Date/Time: 01/28/2024 11:29 PM EDT [facility] Patient Name: EL SMITH : [...] or apparent pneumothorax. Bony thorax grossly unremarkable. [facility] Tk Trinh MD - 01/28/2024 Patient [...] Electronically Signed Date/Time: 01/28/2024 11:29 PM EDT [facility] Radiology Study observation (narrative) [facility] XR Chest Single viewOrdered By: Tk Trinh on 01-28-2024 [employer] Work Phone: [employer] HEALTHon 01-06-2024 Incoming Media HNO ID: [id number] Author: HAI ALSTON RT(R) Service: Radiology Author Type: Technologist Type: [employer] [facility] Filed: 01/06/2024 06:53 Note Text: Radiology Service [...] PATIENT PRESENTS WITH AN IMPLANTABLE OR ATTACHED VASC TECH: No ALLERGIES: Reviewed and unchanged CONTRAST ALLERGY: [...] January 06, 2024 TIME: 6:53 AM Normal [facility] CBC W Auto Differential pane l (Bld)on 01-06-2024 Basophils (Bld) [#/Vol] 0.05 10*3/uL Normal <0.11 [facility] Comment on above: Order Comment: Speci men Type: BLOOD SPECIMEN Ordering Facility: [facility] Address: [address] [place] [address] Performed By: #### 5 7021-8 #### [facility] CLIA [id number] [address] [place] Basophils/100 WBC (Bld) 0.6 % Normal [facility] Comment on above: Order Comment: Speci men Type: BLOOD SPECIMEN Ordering Facility: [facility] Address: [address] [place] [address] Performed By: #### 5 7021-8 #### [facility] CLIA [id number] [address] Differential cell count method Nom (Bld) Auto Normal [facility] Comment on above: Order Comment: Speci men Type: BLOOD SPECIMEN Ordering Facility: [facility] Address: [address] [place] [address] Performed By: #### 5 7021-8 #### [facility] CLIA [id number] [address] [place] [address] [place] Eosinophils (Bld) [#/Vol] 0.03 10*3/uL Normal <0.46 [facility] Comment on above: Order Comment: Speci men Type: BLOOD SPECIMEN Ordering Facility: [facility] Address: [address] [place] [address] Performed By: #### 5 7021-8 #### [facility] CLIA [id number] [address] [place] [address] [place] Eosinophils/100 WBC (Bld) 0.4 % Normal [facility] Comment on above: Order Comment: Speci men Type: BLOOD SPECIMEN Ordering Facility: [facility] Address: [address] [place] [address] Performed By: #### 5 7021-8 #### [facility] CLIA [id number] [address] [place] Erythrocyte distribution width (RBC) [Ratio] 16.7 % High 11.5-15.0 [facility] Comment on above: Order Comment: Speci men Type: BLOOD SPECIMEN Ordering Facility: [facility] Address: [address] [place] [address] Performed By: #### 5 7021-8 #### [facility] CLIA [id number] [address] [place] Hematocrit (Bld) [Volume fraction] 33.7 % Low 39.0-51.0 [facility] Comment on above: Order Comment: Speci men Type: BLOOD SPECIMEN Ordering Facility: [facility] Address: [address] [place] [address] Performed By: #### 5 7021-8 #### [facility] CLIA [id number] [address] [place] Hemoglobin (Bld) [Mass/Vol] 10.3 g/dL Low 13.0-17.0 [facility] Comment on above: Order Comment: Speci men Type: BLOOD SPECIMEN Ordering Facility: [facility] Address: [address] [place] [address] Performed By: #### 5 7021-8 #### [facility] CLIA [id number] [address] Immature granulocytes (Bld) [#/Vol] 0.03 10*3/uL Normal <0.10 [facility] Comment on above: Order Comment: Speci men Type: BLOOD SPECIMEN Ordering Facility: [facility] Address: [address] [place] [address] Performed By: #### 5 7021-8 #### [facility] CLIA [id number] [address] Immature granulocytes/100 WBC (Bld) 0.4 % Normal [facility] Comment on above: Order Comment: Speci men Type: BLOOD SPECIMEN Ordering Facility: [facility] Address: [address] [place] [address] Performed By: #### 5 7021-8 #### [facility] CLIA [id number] [address] Lymphocytes (Bld) [#/Vol] 0.88 10*3/uL Low 1.00-4.00 [facility] Comment on above: Order Comment: Speci men Type: BLOOD SPECIMEN Ordering Facility: [facility] Address: [address] [place] [address] Performed By: #### 5 7021-8 #### [facility] CLIA [id number] [address] Lymphocytes/100 WBC (Bld) 10.4 % Normal [facility] [facility] Comment on above: Order Comment: Speci men Type: BLOOD SPECIMEN Ordering Facility: [facility] Address: [address] [place] [address] Performed By: #### 5 7021-8 #### [facility] CLIA [id number] [address] STATES OF [facility] MCH (RBC) [Entitic mass] 24.0 pg Low 26.0-34.0 [facility] Comment on above: Order Comment: Speci men Type: BLOOD SPECIMEN Ordering Facility: [facility] Address: [address] [place] [address] Performed By: #### 5 7021-8 #### [facility] CLIA [id number] [address] MCHC (RBC) [Mass/Vol] 30.6 g/dL Normal 30.5-36.0 [facility] Comment on above: Order Comment: Speci men Type: BLOOD SPECIMEN Ordering Facility: [facility] Address: [address] [place] [address] Performed By: #### 5 7021-8 #### [facility] CLIA [id number] [address] [place] [address] [place] MCV (RBC) [Entitic vol] 78.6 fL Low 80.0-100.0 M [facility] Comment on above: Order Comment: Speci men Type: BLOOD SPECIMEN Ordering Facility: [facility] Address: [address] [place] [address] Performed By: #### 5 7021-8 #### [facility] CLIA [id number] [address] [place] [address] [place] Monocytes (Bld) [#/Vol] 0.56 10*3/uL Normal <0.87 [facility] Comment on above: Order Comment: Speci men Type: BLOOD SPECIMEN Ordering Facility: [facility] Address: [address] [place] [address] Performed By: #### 5 7021-8 #### [facility] CLIA [id number] [address] [place] Monocytes/100 WBC (Bld) 6.6 % Normal [facility] Comment on above: Order Comment: Speci men Type: BLOOD SPECIMEN Ordering Facility: [facility] Address: [address] [place] [address] Performed By: #### 5 7021-8 #### [facility] CLIA [id number] [address] [place] Neutrophils (Bld) [#/Vol] 6.90 10*3/uL Normal 1.45-7.50 [facility] Comment on above: Order Comment: Speci men Type: BLOOD SPECIMEN Ordering Facility: [facility] Address: [address] [place] [address] Performed By: #### 5 7021-8 #### [facility] CLIA [id number] [address] [place] Neutrophils/100 WBC (Bld) 81.6 % Normal [facility] Comment on above: Order Comment: Speci men Type: BLOOD SPECIMEN Ordering Facility: [facility] Address: [address] [place] [address] Performed By: #### 5 7021-8 #### [facility] CLIA [id number] [address] [place] [address] [facility] [place] Nucleated RBC (Bld) [#/Vol] 10*3/uL Normal <0.01 [facility] Comment on above: Order Comment: Speci men Type: BLOOD SPECIMEN Ordering Facility: [facility] Address: [address] [place] [address] Performed By: #### 5 7021-8 #### [facility] CLIA [id number] [address] [place] [address] [place] Nucleated RBC/100 WBC (Bld) [Ratio] 0.0 /100 WBC Normal [facility] Comment on above: Order Comment: Speci men Type: BLOOD SPECIMEN Ordering Facility: [facility] Address: [address] [place] [address] Performed By: #### 5 7021-8 #### [facility] CLIA [id number] [address] [place] [address] [place] Platelet mean volume (Bld) [Entitic vol] 8.6 fL Low 9.0-12.7 [facility] Comment on above: Order Comment: Speci men Type: BLOOD SPECIMEN Ordering Facility: [facility] Address: [address] [place] [address] Performed By: #### 5 7021-8 #### [facility] CLIA [id number] [address] OF [place] Platelets (Bld) [#/Vol] 353 10*3/uL Normal 150-400 [facility] Comment on above: Order Comment: Speci men Type: BLOOD SPECIMEN Ordering Facility: [facility] Address: [address] [place] [address] Performed By: #### 5 7021-8 #### [facility] CLIA [id number] [address] [place] [address] [place] RBC (Bld) [#/Vol] 4.29 10*6/uL Normal 4.20-6.00 [facility] Comment on above: Order Comment: Speci men Type: BLOOD SPECIMEN Ordering Facility: [facility] Address: [address] [place] [address] Performed By: #### 5 7021-8 #### [facility] CLIA [id number] 1000 [place] [address] [place] WBC (Bld) [#/Vol] 8.45 10*3/uL Normal 3.70-11.00 [facility] Comment on above: Order Comment: Speci men Type: BLOOD SPECIMEN Ordering Facility: [facility] Address: [facility] [place] [id number] Performed By: #### 5 7021-8 #### [facility] CLIA [id number] [address] [place] [address] [place] CHEST W IVCON PEon 2023 CT CHEST W IVCON PE * * *Final Report* * * DATE OF EXAM: Jan 06 2024 6:55AM [facility] [place] CT CHEST W IVCON PE [...] remote and subacute healing fractures as described. Strategic Planner: SELINA Transcribe Date/Time: Jan 06 2024 7:33A Dictated by : RON NG DO This examination was interpreted and the report reviewed and electronically signed by: RON NG DO on Jan 06 2024 7:55AM EST [id number] Normal [facility] Comprehensive metabolic 2000 panelon 01-06-2024 Albumin [Mass/Vol] 3.2 g/dL Low 3.9-4.9 [facility] Comment on above: Order Comment: Speci men Type: BLOOD SPECIMENOrdering Facility: [facility] Address: [address] [place] [address] Performed By: #### 2 4323-8, [id number] ####[facility] [id number] [place] [address] [place] ALP [Catalytic activity/Vol] 146 U/L High 38-113 [facility] Comment on above: Order Comment: Speci men Type: BLOOD SPECIMENOrdering Facility: [facility] Address: [address] [place] [address] Performed By: #### 2 4323-8, [id number] ####[facility] [id number] [address] [place] ALT [Catalytic activity/Vol] 29 U/L Normal 10-54 [facility] Comment on above: Order Comment: Speci men Type: BLOOD SPECIMENOrdering Facility: [facility] Address: [address] [place] [address] Performed By: #### 2 4323-8, [id number] ####[facility] [id number] [address] Anion gap [Moles/Vol] 13 mmol/L Normal 8-15 [facility] Comment on above: Order Comment: Speci men Type: BLOOD SPECIMENOrdering Facility: [facility] Address: [address] [place] [address] Performed By: #### 2 4323-8, [id number] ####[facility] [id number] [place] [address] [place] AST [Catalytic activity/Vol] 46 U/L High 14-40 [facility] Comment on above: Order Comment: Speci men Type: BLOOD SPECIMENOrdering Facility: [facility] Address: [address] [place] [address] Performed By: #### 2 4323-8, [id number] ####[facility] [id number] [place] [address] [place] Bilirubin [Mass/Vol] 0.3 mg/dL Normal 0.2-1.3 [facility] Comment on above: Order Comment: Speci men Type: BLOOD SPECIMENOrdering Facility: [facility] Address: [address] [place] [address] Performed By: #### 2 4323-8, [id number] ####[facility] [id number] [place] [address] [place] Calcium [Mass/Vol] 8.2 mg/dL Low 8.5-10.2 [facility] Comment on above: Order Comment: Speci men Type: BLOOD SPECIMENOrdering Facility: [facility] Address: [address] [place] [address] Performed By: #### 2 4323-8, [id number] ####[facility] [id number] [place] [address] [place] Chloride [Moles/Vol] 99 mmol/L Normal 98-107 [facility] Comment on above: Order Comment: Speci men Type: BLOOD SPECIMENOrdering Facility: [facility] Address: [address] [place] [address] Performed By: #### 2 4323-8, [id number] ####[facility] [id number] [place] [address] [place] CO2 [Moles/Vol] 29 mmol/L Normal 22-30 [facility] Comment on above: Order Comment: Speci men Type: BLOOD SPECIMENOrdering Facility: [facility] Address: [address] [place] [address] Performed By: #### 2 4323-8, [id number] ####[facility] [id number] [place] [address] [place] Creatinine [Mass/Vol] 0.56 mg/dL Low 0.73-1.22 [facility] Comment on above: Order Comment: Speci men Type: BLOOD SPECIMENOrdering Facility: [facility] Address: [address] [place] [address] Performed By: #### 2 4323-8, [id number] ####[facility] [id number] [place] [address] [place] Creatinine and Glomerular filtration rate.predicted panel (S/P/Bld) 126 mL/min/1.73m??? Normal >=60 [facility] Comment on above: Order Comment: Gio moreno Type: BLOOD SPECIMENOrdering Facility: [facility] Address: [address] [place] [address] Result Comment: Alejandra mated Glomerular Filtration Rate [...] actual GFR. Performed By: #### 2 4323-8, [id number] ####[facility] [id number] [place] [address] [place] Glucose [Mass/Vol] 79 mg/dL Normal 74-99 [facility] Comment on above: Order Comment: Gio moreno Type: BLOOD SPECIMENOrdering Facility: [facility] Address: [address] [place] [address] Result Comment: The British Diabetes Association (ADA) provides guidance for cutoff [...] Standards of Medical Care in Diabetes 2016, British Diabetes Association. Diabetes Care. 2016.39(Suppl 1). Performed By: #### 2 4323-8, [id number] ####[facility] [id number] [place] [id number] [place] Potassium [Moles/Vol] 3.7 mmol/L Normal 3.7-5.1 [facility] Comment on above: Order Comment: Speci men Type: BLOOD SPECIMENOrdering Facility: [facility] Address: [address] [place] [address] Performed By: #### 2 4323-8, [id number] ####[facility] [id number] [place] [address] [place] Protein [Mass/Vol] 7.0 g/dL Normal 6.3-8.0 [facility] Comment on above: Order Comment: Speci men Type: BLOOD SPECIMENOrdering Facility: [facility] Address: [address] [place] [address] Performed By: #### 2 4323-8, [id number] ####[facility] [id number] [address] [place] Sodium [Moles/Vol] 141 mmol/L Normal 136-144 [facility] Comment on above: Order Comment: Speci men Type: BLOOD SPECIMENOrdering Facility: [facility] Address: [address] [place] [address] Performed By: #### 2 4323-8, [id number] ####[facility] [id number] [place] [address] [place] Urea nitrogen [Mass/Vol] 9 mg/dL Normal 9-24 [facility] Comment on above: Order Comment: Speci men Type: BLOOD SPECIMENOrdering Facility: [facility] Address: [address] [place] [address] Performed By: #### 2 4323-8, [id number] ####[facility] [id number] [place] [address] [place] D dimer FEU PPP-mCncon 01-05 Fibrin D-dimer FEU (PPP) [Mass/Vol] 1750 ng/mL FEU High <500 [facility] Comment on above: Order Comment: Speci men Type: BLOOD SPECIMENOrdering Facility: [facility] Address: [address] [place] [address] Performed By: #### 3 4528-0, 03661-4, 29130-2 ####[facility] [id number] [place] [address] [facility] ECG COMPLETEon 01-06-2024 ECG COMPLETE Ventricular Rate : 9 0 BPM Atrial Rate : 90 BPM P-R Interval : 130 ms QRS Duration : 108 ms Q-T Interval : 398 ms QTC Calculation(Bazett) : 486 ms Calculated P [place] : 52 degrees Calculated R [place] : 47 degrees Calculated T [place] : 61 degrees NORMAL SINUS RHYTHM MINIMAL VOLTAGE CRITERIA FOR LVH, MAY BE NORMAL VARIANT ( Sokolow-Short ) PROLONGED QT ABNORMAL ECG Confirmed by MD LEIJA ALEXANDER ([id number]), copy editor ANDRES JOHNSON ([id number]) on 01/06/2024 7:23:05 AM NAME : EL SMITH PID : [id number] : 1980 Gender : Male Race : ORD : [id number] Procedure Date : Jan 06 2024 05:09:04 Edit Date : Jan 06 2024 07:23:08 Diagnosis: NORMAL SINUS RHYTHM MINIMAL VOLTAGE CRITERIA FOR LVH, MAY BE NORMAL VARIANT ( Sokolow-Short ) PROLONGED QT ABNORMAL ECG Confirmed by MD LEIJA ALEXANDER ([id number]), copy editor ANDRES JOHNSON ([id number]) on 01/06/2024 7:23:05 AM Test Reason : Chest Pain Location : 1 : ER ED Overread By : MD LEIJA ALEXANDER Edited By : ANDRES JOHNSON Referred By : , Acquired by : trent rn, [facility] ED NOTEon 01-06-2024 ED NOTE HNO ID: [id number] Author: BOBBY ENRIQUEZ RN Service: Nursing Author Type: Registered Nurse Type: ED Notes Filed: 01/06/2024 08:58 Note Text: Patient wanting to go home. He is aware of discharge instructions, follow up care with PCP, medications to take at home for pain and his antibiotic that was sent to his pharmacy. Female family member at and will drive him home. Thankful for care. [facility] ED NOTE HNO ID: [id number] Author: BOBBY ENRIQUEZ RN Service: Nursing Author Type: Registered Nurse Type: ED Notes Filed: 01/06/2024 08:37 Note Text: Ambulated with pulse ox. Patient able to tolerate well, pulse ox 93-95% on RA, Patient has incentive spirometry at home, will use at home. Family back at bs and will be able to drive him home. [facility] ED NOTE HNO ID: [id number] Author: BOBBY ENRIQUEZ RN Service: Nursing Author Type: Registered Nurse Type: ED Notes Filed: 01/06/2024 08:29 Note Text: Will ambulate with pulse ox per MD request. [facility] ED NOTE HNO ID: [id number] Author: BOBBY ENRIQUEZ, DESIREE Service: Nursing Author Type: Registered Nurse Type: ED Notes Filed: 01/06/2024 07:16 Note Text: Rec'd report and assumed care of patient. [facility] ED PROV NOTEon 01-06-2024 ED PROV NOTE HNO ID: [id number] Author: GENO DIEGO DO Service: Emergency Medicine [...] AM PAGER/CONTACT #: GENO DIEGO 01/06/24 1306 [facility] ED PROV NOTE HNO ID: [id number] Author: MARAL LEIJA MD Service: ? Author [...] a nasty cough History provided by: Patient match up person used: No Chest Pain Pain location: L [...] range nuñez (more content not included)... Normal [facility] HIGH SENSITIVITY TROPONIN T (INITIAL)on 01-06-2024 Troponin T.cardiac High sensitivity method [Mass/Vol] 9 ng/L Normal <12 [facility] Comment on above: Order Comment: Gio moreno Type: BLOOD SPECIMENOrdering Facility: [facility] Address: [address] [place] [address] Performed By: #### 2 4323-8, [id number] ####[facility] [id number] [address] STATES OF [facility] HIGH SENSITIVITY TROPONIN T (SECOND)on 01-06-2024 Troponin T.cardiac High sensitivity method [Mass/Vol] 7 ng/L Normal <12 [facility] Comment on above: Order Comment: Gio moreno Type: BLOOD SPECIMENOrdering Facility: [facility] Address: [address] [place] [address] Performed By: #### L [id number] ####[facility] [id number] [place] [address] [place] PT panel Coag (PPP)on 2023 INR Coag (PPP) [Relative time] 1.0 {INR} Normal 0.9-1.3 [facility] Comment on above: Order Comment: Gio moreno Type: BLOOD SPECIMEN Ordering Facility: [facility] Address: [address] [place], [place] [address] Result Comment: Shobha min K Antagonist (VKA) Therapeutic Range: INR 2 to 3 (Target INR of 2.5) Note: For patients treated with VKA drugs, such as warfarin, the [employer] College of Chest Physicians 2012 Guideline recommends [...] Chest 2012, 141:7S-47S Stevan RA, et al. [facility] 2017, 70: 252-289 Performed By: #### 3 4528-0, 17466-5, 85532-8 #### [facility] CLIA [id number] [address] [place] [address] [place] PT Coag (PPP) [Time] 10.4 s Normal 9.7-13.0 [facility] Comment on above: Order Comment: Speci men Type: BLOOD SPECIMEN Ordering Facility: [facility] Address: [address] [place], [place] [address] Performed By: #### 3 4528-0, 99013-8, 18531-9 #### [facility] CLIA [id number] [address] [place] [address] [place] XR CHEST 1V [...] bony abnormality. IMPRESSION: No acute radiographic abnormality. Strategic Planner: SELINA Transcribe Date/Time: Jan 06 2024 6:23A Dictated by : LAURI DUNCAN MD This examination was interpreted and the report reviewed and electronically signed by: LAURI DUNCAN MD on Jan 06 2024 6:25AM EST [id number] Normal [facility] aPTT PPPon 01-06-2024 aPTT Coag (PPP) [Time] 39.3 s High 23.0-32.4 [facility] Comment on above: Order Comment: Speci men Type: BLOOD SPECIMEN Ordering Facility: [facility] Address: [address] [place] [address] Performed By: #### 3 4528-0, 62644-1, 10127-4 #### [facility] CLIA [id number] [address] [place] [address] XR Hand - left 3 Viewson Acute fracture of th e midshaft of the fourth metacarpal with associated soft tissue swelling. Report Dictated on Electronically Signed By: Phillip Oshea MD Electronically Signed Date/Time: 10/21/2023 4:36 PM EDT [facility] 1980 [id number] Exam Date/Time: 10/21/2023 16:05 Procedure: XR HAND [...] 10/21/2023 Patient Name: [facility] : 1980 [id number] Exam Date/Time: 10/21/2023 16:05 Procedure: XR HAND [...] Electronically Signed Date/Time: 10/21/2023 4:36 PM EDT [facility] Radiology Study observation (narrative) [facility] XR Hand - left 3 ViewsOrdere d By: Phillip Oshea on 10-21-2023 [facility] Fengxiafei Work Phone: Basic metabolic 1998 panelon 04-25-2023 Anion gap [Moles/Vol] 9 mmol/L 3 - 13 mmol/L [facility] Calcium [Mass/Vol] 8.6 mg/dL 8.4 - 10. 4 mg/dL [facility] Chloride [Moles/Vol] 99 mmol/L 98 - 10 7 mmol/L [facility] CO2 [Moles/Vol] 24 mmol/L 22 - 30 mmol/L [facility] Creatinine [Mass/Vol] 0.59 mg/dL Low 0.66 - 1.25 mg/dL [facility] GFR/1.73 sq M.predicted MDRD (S/P/Bld) [Vol rate/Area] - PINF [facility] Comment on above: Calculation based on the Chronic Kidney Disease Epidemiology Collaboration (CKD-EPI) equation refit without adjustment for race Glucose [Mass/Vol] 98 mg/dL 70 - 100 mg/dL [facility] Interpretation and review of laboratory results Abnormal [facility] Potassium [Moles/Vol] 3.1 mmol/L Low 3.5 - 5.1 mmol/L [facility] Sodium [Moles/Vol] 132 mmol/L Low 135 - 145 mmol/L [facility] Urea nitrogen [Mass/Vol] 7 mg/dL Low 9 - 20 mg/dL [facility] Slight Hemolysis [facility] Ethanol (Bld) [Mass/Vol]on 0 04-25-2023 Ethanol [Mass/Vol] g/dL 0.000 - 0 .010 g/dL [facility] Lipaseon 04-25-2023 Lipase [Catalytic activity/Vol] 27 U/L 23 - 300 U/L [facility] Natriuretic peptide B [Mass/ Vol]on 04-25-2023 Natriuretic peptide B (Bld) [Mass/Vol] 38 pg/mL <20 - 100 [facility] No Panel Informationon 04-25 P [place] 38 degrees [facility] PA Interval 156 ms [facility] QRS [place] 18 degrees [facility] QRSD [facility]val [facility]val 356 ms [facility] QTC Interval 471 ms [facility] T Wave [place] 145 degrees [facility] SINUS TACHYCARDIA LVH WITH SECONDARY REPOLARIZATION ABNORMALITY Electronically Signed On 04-25-2023 02:31:49 EST by Lauri Kinney MD - 04/25/2023 IMPRESSION: SINUS TACHYCARDIA LVH WITH SECONDARY REPOLARIZATION ABNORMALITY Electronically Signed On 04-25-2023 02:31:49 EST by Lauri Dior [facility] Interpretation and review of laboratory results Normal [facility] Procalcitonin Teston Procalcitonin [Mass/Vol] 11.45 ng/mL High 0.00 - 0.09 ng/mL [facility] Procalcitonin [Mass/Vol]on 0 04-25-2023 Interpretation and review of laboratory results Abnormal [facility] PCT <0.50 = Low risk of severe sepsis and/or septic shock. PCT >2.00 = High risk of severe sepsis and/or septic shock. [facility] SARS-CoV-2, Flu A/B, and RSV Comboon 04-25-2023 FLUAV RNA CONNOR+probe Ql (Resp) Not detected Not Detected [facility] FLUBV RNA CONNOR+probe Ql (Resp) Not detected Not Detected [facility] Interpretation and review of laboratory results Normal [facility] RSV RNA CONNOR+probe Ql (Resp) Not detected Not Detected [facility] SARS-CoV-2 (COVID-19) RNA CONNOR+probe Ql (Resp) Not detected Not Detected [facility] SARS-CoV-2 (COVID-19) RNA CONNOR+probe Ql (Unsp spec) Methodology: real-time, RT-PCR The SARS-CoV-2, Flu A/B, and RSV Combo assay is intended for in vitro diagnostic use under the FDA Emergency Use Authorization (EUA). This test has not been FDA cleared or approved. In compliance with this authorization, please visit www.fda.gov/media/930 526/download or www.fda.gov/media/523 728/download to access the applicable information sheets. [facility] Troponin I.cardiac [Mass/Vol ]on 04-25-2023 Patients with high levels of Biotin oral intake (ie >5 mg/day) may have falsely decreased Troponin levels. [facility] Troponin, with Serial Reflex on 04-25-2023 Troponin I.cardiac [Mass/Vol] ng/mL NINF - 0.034 ng/mL [facility] Vital signson 04-25-2023 Heart rate 105 /min bpm [facility] CBC W Auto Differential pane l (Bld)Ordered By: Frannie Manzanares on 04-24-2023 Basophils (Bld) [#/Vol] 0.1 10*3/uL 0.0 - 0.2 10*3/uL [facility] Basophils/100 WBC (Bld) 0.4 % 0.0 - 2.0 % [facility] Eosinophils (Bld) [#/Vol] 0.2 10*3/uL 0.0 - 0.5 10*3/uL [facility] Eosinophils/100 WBC (Bld) 1.2 % 1.0 - 6.0 % [facility] Erythrocyte distribution width (RBC) [Ratio] 20.0 % High 11.5 - 14.5 % [facility] Hematocrit (Bld) [Volume fraction] 34.3 % Low 40.0 - 52.0 % [facility] Hemoglobin (Bld) [Mass/Vol] 11.8 g/dL Low 13.0 - 18.0 g/dL [facility] Immature granulocytes (Bld) [#/Vol] 0.1 10*3/uL High NINF - 0.0 10*3/uL [facility] Immature granulocytes/100 WBC (Bld) 0.7 % High NINF - 0.0 % [facility] Interpretation and review of laboratory results Abnormal [facility] Lymphocytes (Bld) [#/Vol] 1.8 10*3/uL 1.0 - 4.3 10*3/uL [facility] Lymphocytes/100 WBC (Bld) 13.3 % Low 20.0 - 40.0 % [facility] MCH (RBC) [Entitic mass] 29.9 pg 26.0 - 34.0 pg [facility] MCHC (RBC) [Mass/Vol] 34.4 % 32.0 - 36.0 % [facility] MCV (RBC) [Entitic vol] 87.1 fL 80.0 - 98.0 fL [facility] [facility] Mon[facility] (Bld) [#/Vol] 1.0 10*3/uL High 0.0 - 0.8 10*3/uL [facility] Monocytes/100 WBC (Bld) 7.2 % 2.0 - 10.0 % [facility] Neutrophils (Bld) [#/Vol] 10.5 10*3/uL High 1.8 - 7.0 10*3/uL [facility] Neutrophils/100 WBC (Bld) 77.2 % 40.0 - 80.0 % [facility] Platelet mean volume (Bld) [Entitic vol] 10.1 fL 7.4 - 12.4 fL [facility] Comment on above: MPV is a calculated measurement using platelet volume ratio Platelets (Bld) [#/Vol] 648 10*3/uL High 140 - 440 10*3/uL [facility] RBC (Bld) [#/Vol] 3.94 10*6/uL Low 4.40 - 5.9 0 10*6/uL [facility] WBC (Bld) [#/Vol] 13.6 10*3/uL High 3.6 - 10.7 10*3/uL [facility] XR Chest Single viewon 04-24 1. Lines/Tubes/Devices/H [...] was obtained and reviewed. Special views: None. [facility] Dev Queen MD - 04/24/2023 Patient [...] Electronically Signed Date/Time: 04/24/2023 11:52 PM EST [facility] Radiology Study observation (narrative) [facility] XR Chest Single viewOrdered By: Dev Queen on 04-24-2023 [facility] Work Phone: Bacteria identified Aer cx N om (Lower resp)Ordered By: Myranda Whitehead on 04-22-2023 Gram Stain Result Moderate Epithelial cells per low power field Abnormal [facility] Gram Stain Result Few Polymorphonuclea r leukocytes per low power field Abnormal [facility] Gram Stain Result Positive Abnormal [facility] ealt Interpretation and review of laboratory results Abnormal [facility] CBC W Auto Differential pane l (Bld)Ordered By: Erlin Quintana on 04-22-2023 Erythrocyte distribution width (RBC) [Ratio] 24.8 % High 11.5 - 14.5 % [facility] Hematocrit (Bld) [Volume fraction] 34.0 % Low 40.0 - 52.0 % [facility] Hemoglobin (Bld) [Mass/Vol] 11.0 g/dL Low 13.0 - 18.0 g/dL [facility] MCH (RBC) [Entitic mass] 29.1 pg 26.0 - 34.0 pg [facility] MCHC (RBC) [Mass/Vol] 32.3 % 32.0 - 36.0 % [facility] MCV (RBC) [Entitic vol] 90.1 fL 80.0 - 98.0 fL [facility] Nucleated RBC/100 WBC (Bld) [Ratio] 0.0 % [facility] Platelet mean volume (Bld) [Entitic vol] 7.1 fL Low 7.4 - 12.4 fL [facility] Platelets (Bld) [#/Vol] 256 10*3/uL 140 - 440 10*3/uL [facility] RBC (Bld) [#/Vol] 3.78 10*6/uL Low 4.40 - 5.9 0 10*6/uL [facility] WBC (Bld) [#/Vol] 12.5 10*3/uL High 3.6 - 10.7 10*3/uL [facility] Comprehensive metabolic 1998 panelon 04-22-2023 Albumin [Mass/Vol] 3.3 g/dL Low 3.5 - 5.0 g/dL [facility] ALP [Catalytic activity/Vol] 152 U/L High 38 - 126 U/L [facility] ALT [Catalytic activity/Vol] 56 U/L High 0 - 49 U/L [facility] Anion gap [Moles/Vol] 5 mmol/L 3 - 13 mmol/L [facility] AST [Catalytic activity/Vol] 100 U/L High 15 - 46 U/L [facility] Bilirubin [Mass/Vol] 0.9 mg/dL 0.2 - 1 .3 mg/dL [facility] Calcium [Mass/Vol] 8.5 mg/dL 8.4 - 10. 4 mg/dL [facility] Chloride [Moles/Vol] 99 mmol/L 98 - 10 7 mmol/L [facility] CO2 [Moles/Vol] 27 mmol/L 22 - 30 mmol/L [facility] Creatinine [Mass/Vol] 0.54 mg/dL Low 0.66 - 1.25 mg/dL [facility] GFR/1.73 sq M.predicted MDRD (S/P/Bld) [Vol rate/Area] - PINF [facility] Comment on above: Calculation based on the Chronic Kidney Disease Epidemiology Collaboration (CKD-EPI) equation refit without adjustment for race Glucose [Mass/Vol] 102 mg/dL High 70 - 100 mg/dL [facility] Interpretation and review of laboratory results Abnormal [facility] Potassium [Moles/Vol] 3.8 mmol/L 3.5 - 5.1 mmol/L [facility] Protein [Mass/Vol] 6.4 g/dL 6.3 - 8.2 g/dL [facility] Sodium [Moles/Vol] 132 mmol/L Low 135 - 145 mmol/L [facility] Urea nitrogen [Mass/Vol] 8 mg/dL Low 9 - 20 mg/dL [facility] Manual differential performe d Ql (Bld)on 04-22-2023 Anisocytosis Ql (Bld) Moderate Abnormal (none) [facility] Basophils (Bld) [#/Vol] 0.1 10*3/uL 0.0 - 0.2 10*3/uL [facility] Basophils Manual 1 [facility] Basophils/100 WBC (Bld) 1 % 0 - 2 % [facility] Cells Counted Total (Bld) [#] 100 {cells} [facility] Differential Method Manual differential performed [facility] Leukocyte morphology finding Nom (Bld) Normal [facility] Lymphocytes (Bld) [#/Vol] 1.5 10*3/uL 1.0 - 4.3 10*3/uL [facility] Lymphocytes Manual 12 [facility] Lymphocytes/100 WBC (Bld) 12 % Low 20 - 40 % [facility] Monocytes (Bld) [#/Vol] 1.1 10*3/uL High 0.0 - 0.8 10*3/uL [facility] Monocytes Manual 9 [facility] Monocytes/100 WBC (Bld) 9 % 2 - 10 % [facility] Neutrophils (Bld) [#/Vol] 9.8 10*3/uL High 1.8 - 7.0 10*3/uL [facility] Neutrophils Manual 78 [facility] Platelet morphology finding Nom (Bld) Normal [facility] Poikilocytosis LM Ql (Bld) Slight Abnormal (none) [facility] Polychromasia LM Ql (Bld) Slight Abnormal (none) [facility] Segmented neutrophils/100 WBC (Bld) 78 % 40 - 80 % [facility] Stomatocytes LM Ql (Bld) Slight Abnormal (none) [facility] WBC corrected for nucl RBC (Bld) [#/Vol] 12.5 10*3/uL High 3.6 - 10.7 10*3/uL [facility] No Panel Informationon 04-22 Interpretation and review of laboratory results Abnormal [facility] Respiratory culture and Stai nOrdered By: Myranda Carlostiffany Whitehead on 04-22-2023 Bacteria identified Aer cx Nom (Lower resp) Few respiratory mack present. [facility] CBC W Auto Differential pane l (Bld)Ordered By: Kelly Cárdenas on 04-21-2023 Erythrocyte distribution width (RBC) [Ratio] 24.2 % High 11.5 - 14.5 % [facility] Hematocrit (Bld) [Volume fraction] 31.1 % Low 40.0 - 52.0 % [facility] Hemoglobin (Bld) [Mass/Vol] 10.2 g/dL Low 13.0 - 18.0 g/dL [facility] MCH (RBC) [Entitic mass] 29.8 pg 26.0 - 34.0 pg [facility] MCHC (RBC) [Mass/Vol] 32.9 % 32.0 - 36.0 % [facility] MCV (RBC) [Entitic vol] 90.5 fL 80.0 - 98.0 fL [facility] Nucleated RBC/100 WBC (Bld) [Ratio] 0.0 % [facility] Platelet mean volume (Bld) [Entitic vol] 7.1 fL Low 7.4 - 12.4 fL [facility] Platelets (Bld) [#/Vol] 214 10*3/uL 140 - 440 10*3/uL [facility] RBC (Bld) [#/Vol] 3.44 10*6/uL Low 4.40 - 5.9 0 10*6/uL [facility] WBC (Bld) [#/Vol] 10.9 10*3/uL High 3.6 - 10.7 10*3/uL [facility] Comprehensive metabolic 1998 panelon 04-21-2023 Albumin [Mass/Vol] 2.9 g/dL Low 3.5 - 5.0 g/dL [facility] ALP [Catalytic activity/Vol] 132 U/L High 38 - 126 U/L [facility] ALT [Catalytic activity/Vol] 48 U/L 0 - 49 U/L [facility] Anion gap [Moles/Vol] 4 mmol/L 3 - 13 mmol/L [facility] AST [Catalytic activity/Vol] 97 U/L High 15 - 46 U/L [facility] Bilirubin [Mass/Vol] 0.4 mg/dL 0.2 - 1 .3 mg/dL [facility] Calcium [Mass/Vol] 7.8 mg/dL Low 8.4 - 10. 4 mg/dL [facility] Chloride [Moles/Vol] 100 mmol/L 98 - 10 7 mmol/L [facility] CO2 [Moles/Vol] 27 mmol/L 22 - 30 mmol/L [facility] Creatinine [Mass/Vol] 0.55 mg/dL Low 0.66 - 1.25 mg/dL [facility] GFR/1.73 sq M.predicted MDRD (S/P/Bld) [Vol rate/Area] - PINF [facility] Comment on above: Calculation based on the Chronic Kidney Disease Epidemiology Collaboration (CKD-EPI) equation refit without adjustment for race Glucose [Mass/Vol] 110 mg/dL High 70 - 100 mg/dL [facility] Interpretation and review of laboratory results Abnormal [facility] Potassium [Moles/Vol] 3.6 mmol/L 3.5 - 5.1 mmol/L [facility] Protein [Mass/Vol] 5.6 g/dL Low 6.3 - 8.2 g/dL [facility] Sodium [Moles/Vol] 131 mmol/L Low 135 - 145 mmol/L [facility] Urea nitrogen [Mass/Vol] 11 mg/dL 9 - 20 mg/dL [facility] Manual differential performe d Ql (Bld)on 04-21-2023 Anisocytosis Ql (Bld) Moderate Abnormal (none) [facility] Basophils (Bld) [#/Vol] 0.1 10*3/uL 0.0 - 0.2 10*3/uL [facility] Basophils Manual 1 [facility] Basophils/100 WBC (Bld) 1 % 0 - 2 % [facility] Cells Counted Total (Bld) [#] 100 {cells} [facility] Dacrocytes LM Ql (Bld) Rare Abnormal (none) [facility] Differential Method Manual differential performed [facility] Eosinophils (Bld) [#/Vol] 0.1 10*3/uL 0.0 - 0.5 10*3/uL [facility] Eosinophils Manual 1 0 - 1 [facility] Eosinophils/100 WBC (Bld) 1 % 1 - 6 % [facility] Hypochromia Ql (Bld) Slight Abnormal (none) [facility] Leukocyte morphology finding Nom (Bld) Normal [facility] Lymphocytes (Bld) [#/Vol] 1.9 10*3/uL 1.0 - 4.3 10*3/uL [facility] Lymphocytes Manual 17 [facility] Lymphocytes/100 WBC (Bld) 17 % Low 20 - 40 % [facility] Monocytes (Bld) [#/Vol] 0.8 10*3/uL 0.0 - 0.8 10*3/uL [facility] Monocytes Manual 7 [facility] Monocytes/100 WBC (Bld) 7 % 2 - 10 % [facility] Neutrophils (Bld) [#/Vol] 8.1 10*3/uL High 1.8 - 7.0 10*3/uL [facility] Neutrophils Manual 74 [facility] Ovalocytes LM Ql (Bld) Slight Abnormal (none) [facility] Platelet morphology finding Nom (Bld) Normal [facility] Poikilocytosis LM Ql (Bld) Slight Abnormal (none) [facility] Polychromasia LM Ql (Bld) Moderate Abnormal (none) [facility] Segmented neutrophils/100 WBC (Bld) 74 % 40 - 80 % [facility] WBC corrected for nucl RBC (Bld) [#/Vol] 10.9 10*3/uL High 3.6 - 10.7 10*3/uL [facility] No Panel InformationOrdered By: Kelly Cárdenas on 04-21-2023 Interpretation and review of laboratory results Abnormal [facility] CBC W Auto Differential pane l (Bld)on 04-20-2023 Erythrocyte distribution width (RBC) [Ratio] 24.4 % High 11.5 - 14.5 % [facility] Hematocrit (Bld) [Volume fraction] 31.9 % Low 40.0 - 52.0 % [facility] Hemoglobin (Bld) [Mass/Vol] 10.5 g/dL Low 13.0 - 18.0 g/dL [facility] Interpretation and review of laboratory results Abnormal [facility] MCH (RBC) [Entitic mass] 29.6 pg 26.0 - 34.0 pg [facility] MCHC (RBC) [Mass/Vol] 32.8 % 32.0 - 36.0 % [facility] MCV (RBC) [Entitic vol] 90.0 fL 80.0 - 98.0 fL [facility] Nucleated RBC/100 WBC (Bld) [Ratio] 0.0 % [facility] Platelet mean volume (Bld) [Entitic vol] 7.4 fL 7.4 - 12.4 fL [facility] Platelets (Bld) [#/Vol] 188 10*3/uL 140 - 440 10*3/uL [facility] RBC (Bld) [#/Vol] 3.55 10*6/uL Low 4.40 - 5.9 0 10*6/uL [facility] WBC (Bld) [#/Vol] 10.4 10*3/uL 3.6 - 10.7 10*3/uL [facility] Comprehensive metabolic 1998 panelon 04-20-2023 Albumin [Mass/Vol] 2.8 g/dL Low 3.5 - 5.0 g/dL [facility] ALP [Catalytic activity/Vol] 125 U/L 38 - 126 U/L [facility] ALT [Catalytic activity/Vol] 52 U/L High 0 - 49 U/L [facility] Anion gap [Moles/Vol] 7 mmol/L 3 - 13 mmol/L [facility] AST [Catalytic activity/Vol] 94 U/L High 15 - 46 U/L [facility] Bilirubin [Mass/Vol] 0.7 mg/dL 0.2 - 1 .3 mg/dL [facility] Calcium [Mass/Vol] 7.7 mg/dL Low 8.4 - 10. 4 mg/dL [facility] Chloride [Moles/Vol] 100 mmol/L 98 - 10 7 mmol/L [facility] CO2 [Moles/Vol] 27 mmol/L 22 - 30 mmol/L [facility] Creatinine [Mass/Vol] 0.56 mg/dL Low 0.66 - 1.25 mg/dL [facility] GFR/1.73 sq M.predicted MDRD (S/P/Bld) [Vol rate/Area] - PINF [facility] Comment on above: Calculation based on the Chronic Kidney Disease Epidemiology Collaboration (CKD-EPI) equation refit without adjustment for race Glucose [Mass/Vol] 108 mg/dL High 70 - 100 mg/dL [facility] Interpretation and review of laboratory results Abnormal [facility] Potassium [Moles/Vol] 3.6 mmol/L 3.5 - 5.1 mmol/L [facility] Protein [Mass/Vol] 5.4 g/dL Low 6.3 - 8.2 g/dL [facility] Sodium [Moles/Vol] 134 mmol/L Low 135 - 145 mmol/L [facility] Urea nitrogen [Mass/Vol] 19 mg/dL 9 - 20 mg/dL [facility] Fentanyl, urineOrdered By: Bev Sheikh on 04-20-2023 FENTANYL SCREEN, URINE Negative Negative [facility] Fentanyl has been screened for by Immunoassay at a 1 ng/ml threshold. POSITIVE results are not confirmed by a more specific alternative method unless requested. If confirmation is needed, request confirmation under separate order. NOTE: These results are for medical treatment only. Analysis performed using non-forensic procedures. [facility] Manual differential performe d Ql (Bld)on 04-20-2023 Anisocytosis Ql (Bld) Moderate Abnormal (none) [facility] Cells Counted Total (Bld) [#] 100 {cells} [facility] Differential Method Manual differential performed [facility] Eosinophils (Bld) [#/Vol] 0.2 10*3/uL 0.0 - 0.5 10*3/uL [facility] Eosinophils Manual 2 High 0 - 1 [facility] Eosinophils/100 WBC (Bld) 2 % 1 - 6 % [facility] Hypochromia Ql (Bld) Slight Abnormal (none) [facility] Interpretation and review of laboratory results Abnormal [facility] Leukocyte morphology finding Nom (Bld) Normal [facility] Lymphocytes (Bld) [#/Vol] 1.2 10*3/uL 1.0 - 4.3 10*3/uL [facility] Lymphocytes Manual 12 [facility] Lymphocytes/100 WBC (Bld) 12 % Low 20 - 40 % [facility] Monocytes (Bld) [#/Vol] 0.3 10*3/uL 0.0 - 0.8 10*3/uL [facility] Monocytes Manual 3 [facility] Monocytes/100 WBC (Bld) 3 % 2 - 10 % [facility] Neutrophils (Bld) [#/Vol] 8.6 10*3/uL High 1.8 - 7.0 10*3/uL [facility] Neutrophils Manual 83 [facility] Nucleated RBC/100 WBC (Bld) [Ratio] 2 % [facility] Ovalocytes LM Ql (Bld) Slight Abnormal (none) [facility] Platelet morphology finding Nom (Bld) Normal [facility] Polychromasia LM Ql (Bld) Moderate Abnormal (none) [facility] Segmented neutrophils/100 WBC (Bld) 83 % High 40 - 80 % [facility] WBC corrected for nucl RBC (Bld) [#/Vol] 10.4 10*3/uL 3.6 - 10.7 10*3/uL [facility] Respiratory pathogens DNA an d RNA panel CONNOR+non-probe (Lower resp)Ordered By: Agnieszka Humphreys on 04-20-2023 Acinetobacter baumannii complex Not detected Not Detected [facility] Adenovirus Not detected Not Detected [facility] th Chlamydia pneumoniae Not detected Not Detected [facility] Enterobacter cloacae complex Not detected Not Detected [facility] Escherichia coli Not detected Not Detected [facility] FLUAV RNA CONNOR+non-probe Ql (Lower resp) Not detected Not Detected [facility] FLUBV RNA CONNOR+non-probe Ql (Lower resp) Not detected Not Detected [facility] Haemophilus influenzae Not detected Not Detecte d [facility] Human Metapneumovirus Not detected Not Detected [facility] Human Rhinovirus/Enterovirus Not detected Not Detected [facility] Interpretation and review of laboratory results Normal [facility] Klebsiella (Enterobacter) aerogenes Not detected Not Detected [facility] Klebsiella oxytoca Not detected Not Detected [facility] Klebsiella pneumoniae Not detected Not Detected [facility] Legionella pneumophila Not detected Not Detecte d [facility] Moraxella catarrhalis Not detected Not Detected [facility] Mycoplasma pneumoniae Not detected Not Detected [facility] Parainfluenza virus Not detected Not Detected [facility] Proteus spp Not detected Not Detected [facility] Pseudomonas aeruginosa Not detected Not Detecte d [facility] RSV RNA CONNOR+probe Ql (Resp) Not detected Not Detected [facility] S. agalactiae Org specific cx Ql (Vag fld) Not detected Not Detected [facility] SARS-CoV-2 (COVID-19) RNA CONNOR+non-probe Ql (Nph) Not detected Not Detected [facility] SARS-CoV-2 (COVID-19) RNA CONNOR+probe Ql (Unsp spec) Methodology: Multiplex PCR This panel does not test for SARS-CoV-2 (Covid-19). The following antimicrobial resistance gene is reported if the appropriate organism is detected: mecA. The following antimicrobial resistance genes are reported if detected and the appropriate organisms are detected: CTX-M, IMP, KPC, NDM, OXA-48-like, and VIM. [facility] Serratia marcescens Not detected Not Detected [facility] Staphylococcus aureus Not detected Not Detected [facility] Streptococcus pneumoniae Not detected Not Detected [facility] Streptococcus pyogenes Not detected Not Detecte d [facility] Respiratory pathogens DNA an d RNA panel CONNOR+non-probe (Nph)on 04-20-2023 Adenovirus Not detected Not Detected [facility] th B. pertussis DNA CONNOR+probe Ql (Unsp spec) Not detected Not Detected [facility] Bordetella parapertussis Not detected Not Detected [facility] Chlamydia pneumoniae Not detected Not Detected [facility] Coronavirus 229E Not detected Not Detected [facility] Coronavirus HKU1 Not detected Not Detected [facility] Coronavirus NL63 Not detected Not Detected [facility] Coronavirus OC43 Not detected Not Detected [facility] FLUAV RNA CONNOR+non-probe Ql (Nph) Not detected Not Detected [facility] FLUBV RNA CONNOR+non-probe Ql (Nph) Not detected Not Detected [facility] Human Metapneumovirus Not detected Not Detected [facility] Human Rhinovirus/Enterovirus Not detected Not Detected [facility] Interpretation and review of laboratory results Normal [facility] Mycoplasma pneumoniae Not detected Not Detected [facility] Parainfluenza 1 Not detected Not Detected [facility] Parainfluenza 2 Not detected Not Detected [facility] Parainfluenza 3 Not detected Not Detected [facility] Parainfluenza 4 Not detected Not Detected [facility] Respiratory Syncytial Virus Not detected Not Detected [facility] SARS-CoV-2 (COVID-19) RNA CONNOR+non-probe Ql (Nph) Not detected Not Detected [facility] Methodology: Multiplex PCR [facility] XR Chest Single viewon 04-20 Subtle perihilar [...] EST Report Dictated on Electronically Signed By: lVad Otero MD Electronically Signed Date/Time: 04/20/2023 4:50 PM EST [facility] XR Chest Single viewOrdered By: Vlad Otero on 04-20-2023 [facility] [employer] Work Phone: CBC W Auto Differential pane l (Bld)Ordered By: Brian Martinez on 04-19-2023 Erythrocyte distribution width (RBC) [Ratio] 24.7 % High 11.5 - 14.5 % [facility] Hematocrit (Bld) [Volume fraction] 35.1 % Low 40.0 - 52.0 % [facility] Hemoglobin (Bld) [Mass/Vol] 11.6 g/dL Low 13.0 - 18.0 g/dL [facility] Interpretation and review of laboratory results Abnormal [facility] MCH (RBC) [Entitic mass] 29.4 pg 26.0 - 34.0 pg [facility] MCHC (RBC) [Mass/Vol] 33.1 % 32.0 - 36.0 % [facility] MCV (RBC) [Entitic vol] 88.8 fL 80.0 - 98.0 fL [facility] Nucleated RBC/100 WBC (Bld) [Ratio] 0.0 % [facility] Platelet mean volume (Bld) [Entitic vol] 7.6 fL 7.4 - 12.4 fL [facility] Platelets (Bld) [#/Vol] 224 10*3/uL 140 - 440 10*3/uL [facility] RBC (Bld) [#/Vol] 3.95 10*6/uL Low 4.40 - 5.9 0 10*6/uL [facility] WBC (Bld) [#/Vol] 14.2 10*3/uL High 3.6 - 10.7 10*3/uL [facility] COVID-19, Flu A/B, and RSV C [facility] 04-19-2023 FLUAV RNA CONNOR+probe Ql (Resp) Not detected Not Detected [facility] FLUBV RNA CONNOR+probe Ql (Resp) Not detected Not Detected [facility] Interpretation and review of laboratory results Normal [facility] RSV RNA CONNOR+probe Ql (Resp) Not detected Not Detected [facility] SARS-CoV-2 (COVID-19) RNA CONNOR+probe Ql (Resp) Not detected Not Detected [facility] SARS-CoV-2 (COVID-19) RNA CONNOR+probe Ql (Unsp spec) Methodology: real-time, RT-PCR The SARS-CoV-2, Flu A/B, and RSV Combo assay is intended for in vitro diagnostic use under the FDA Emergency Use Authorization (EUA). This test has not been FDA cleared or approved. In compliance with this authorization, please visit www.fda.gov/media/578 435/download or www.fda.gov/media/525 457/download to access the applicable information sheets. [facility] Comprehensive metabolic 1998 panelon 04-19-2023 Albumin [Mass/Vol] 3.2 g/dL Low 3.5 - 5.0 g/dL [facility] ALP [Catalytic activity/Vol] 120 U/L 38 - 126 U/L [facility] ALT [Catalytic activity/Vol] 65 U/L High 0 - 49 U/L [facility] Anion gap [Moles/Vol] 7 mmol/L 3 - 13 mmol/L [facility] AST [Catalytic activity/Vol] 164 U/L High 15 - 46 U/L [facility] Bilirubin [Mass/Vol] 1.0 mg/dL 0.2 - 1 .3 mg/dL [facility] Calcium [Mass/Vol] 7.8 mg/dL Low 8.4 - 10. 4 mg/dL [facility] Chloride [Moles/Vol] 94 mmol/L Low 98 - 10 7 mmol/L [facility] CO2 [Moles/Vol] 31 mmol/L High 22 - 30 mmol/L [facility] Creatinine [Mass/Vol] 0.63 mg/dL Low 0.66 - 1.25 mg/dL [facility] GFR/1.73 sq M.predicted MDRD (S/P/Bld) [Vol rate/Area] - PINF [facility] Comment on above: Calculation based on the Chronic Kidney Disease Epidemiology Collaboration (CKD-EPI) equation refit without adjustment for race Glucose [Mass/Vol] 117 mg/dL High 70 - 100 mg/dL [facility] Interpretation and review of laboratory results Abnormal [facility] Potassium [Moles/Vol] 3.5 mmol/L 3.5 - 5.1 mmol/L [facility] Protein [Mass/Vol] 5.9 g/dL Low 6.3 - 8.2 g/dL [facility] Sodium [Moles/Vol] 132 mmol/L Low 135 - 145 mmol/L [facility] Urea nitrogen [Mass/Vol] 18 mg/dL 9 - 20 mg/dL [facility] Drug screen panel, emergency Ordered By: Tanika Sawyer on 04-19-2023 Amphetamines Screen method >1000 ng/mL Ql (U) Negative [facility] Barbiturates Screen method >200 ng/mL Ql (U) Positive [facility] Benzodiazepines Ql (U) Negative [facility] COCAINE METAB. SCREEN Negative [facility] Methadone Screen Ql (U) Positive [facility] Opiates Screen Ql (U) Negative [facility] oxyCODONE Ql (U) Negative [facility] Phencyclidine Ql (U) Negative [facility] The expected value for all of the [...] is needed, request confirmation under separate order. [facility] [employer] ECG 12 leadOrdered By: Williams Suacedo on 04-19-2023 Heart rate 109 /min bpm [facility] [employer] Work Phone: P [place] 56 degrees [facility] [employer] Work Phone: PA Interval 152 ms [facility] [employer] Work Phone: QRS [place] 38 degrees [facility] [employer]ish Phone: QRSD Interval 98 ms [facility] [employer] Work Phone: QT Interval 360 ms [facility] [employer] Work Phone: QTC Interval 485 ms [facility] [employer] Work Phone: T Wave [place] 56 degrees [facility] [employer] Work Phone: [facility] [employer] Work Phone: ECG 12 leadon 04-19-2023 SINUS [...] On 04-19-2023 10:12:53 EST by Willian Saucedo [facility] Ethanol (Bld) [Mass/Vol]on 0 04-19-2023 Ethanol [Mass/Vol] g/dL 0.000 - 0 .010 g/dL [facility] Interpretation and review of laboratory results Normal [facility] Lactic acid with reflexon Interpretation and review of laboratory results Normal [facility] Lactate [Moles/Vol] 0.8 mmol/L 0.7 - 2. 0 mmol/L [facility] MRSA DNA CONNOR+probe Ql (Nose) on 04-19-2023 Interpretation and review of laboratory results Normal [facility] mecA gene Not detected Not Detected [facility] Staphylococcus aureus Not detected Not Detected [facility] No Staphylococcus aureus detected. Negative nasal MRSA PCR has a high negative predictive value for MRSA pneumonia. Consider stopping Vancomycin if no other clinical indication. Contact Antimicrobial Stewardship for further recommendations. Staphylococcus aureus nasal screen by real-time PCR. This test was modified and its performance characteristics determined by [facility]. The [place]. [place] Food and Drug Administration has not approved or cleared this test; however, FDA clearance or approval is not currently required for clinical use. The results are not intended to be used as the sole means for clinical diagnosis or patient management decisions. [facility] Manual differential performe d Ql (Bld)on 04-19-2023 Anisocytosis Ql (Bld) Marked Abnormal (none) [facility] Basophilic stippling LM Ql (Bld) Slight Abnormal (none) [facility] Basophils (Bld) [#/Vol] 0.1 10*3/uL 0.0 - 0.2 10*3/uL [facility] Basophils Manual 1 [facility]th Basophils/100 WBC (Bld) 1 % 0 - 2 % [facility] Cells Counted Total (Bld) [#] 100 {cells} [facility] Dacrocytes LM Ql (Bld) Rare Abnormal (none) [facility] Differential Method Manual differential performed [facility] Hypochromia Ql (Bld) Slight Abnormal (none) [facility] Interpretation and review of laboratory results Abnormal [facility] Leukocyte morphology finding Nom (Bld) Normal [facility] Lymphocytes (Bld) [#/Vol] 1.3 10*3/uL 1.0 - 4.3 10*3/uL [facility] Lymphocytes Manual 9 [facility] Lymphocytes/100 WBC (Bld) 9 % Low 20 - 40 % [facility] Monocytes (Bld) [#/Vol] 1.0 10*3/uL High 0.0 - 0.8 10*3/uL [facility] Monocytes Manual 7 [facility] Monocytes/100 WBC (Bld) 7 % 2 - 10 % [facility] Neutrophils (Bld) [#/Vol] 11.8 10*3/uL High 1.8 - 7.0 10*3/uL [facility] Neutrophils Manual 83 [facility] Ovalocytes LM Ql (Bld) Slight Abnormal (none) [facility] Platelet morphology finding Nom (Bld) Normal [facility] Poikilocytosis LM Ql (Bld) Slight Abnormal (none) [facility] Polychromasia LM Ql (Bld) Slight Abnormal (none) [facility] Segmented neutrophils/100 WBC (Bld) 83 % High 40 - 80 % [facility] Stomatocytes LM Ql (Bld) Slight Abnormal (none) [facility] Target cells LM Ql (Bld) Slight Abnormal (none) [facility] WBC corrected for nucl RBC (Bld) [#/Vol] 14.2 10*3/uL High 3.6 - 10.7 10*3/uL [facility] No Panel Informationon 04-19 [facility] Troponin Ion 04-19-2023 Troponin I.cardiac [Mass/Vol] ng/mL [facility] [place] - 0.034 ng/mL [facility] Troponin I.cardiac [Mass/Vol] ng/mL [facility] - 0.034 ng/mL [facility] Troponin I.cardiac [Mass/Vol ]on 04-19-2023 Interpretation and review of laboratory results Normal [facility] Patients with high levels of Biotin oral intake (ie >5 mg/day) may have falsely decreased Troponin levels. [facility] Interpretation and review of laboratory results Normal [facility] Patients with high levels of Biotin oral intake (ie >5 mg/day) may have falsely decreased Troponin levels. [facility] Interpretation and review of laboratory results Normal [facility] Patients with high levels of Biotin oral intake (ie >5 mg/day) may have falsely decreased Troponin levels. [facility] Troponin, with Serial Reflex on 04-19-2023 Troponin I.cardiac [Mass/Vol] ng/mL NINF - 0.034 ng/mL [facility] Urinalysis complete panel (U )Ordered By: Sera Parmar on 04-19-2023 Bacteria LM.HPF (Urine sed) [#/Area] Negative Negative /HPF [facility] Bilirubin Ql (U) Negative Negative mg/dL [facility] Clarity (U) Clear Clear [facility] Color (U) Yellow Lt. Yellow [facility] Epithelial cells.squamous LM.HPF (Urine sed) [#/Area] Negative [facility] h Glucose Ql (U) Normal Normal (<70) mg/dL [facility] Hemoglobin Ql (U) Negative Negative mg/dL [facility] Interpretation and review of laboratory results Abnormal [facility] Ketones (U) [Mass/Vol] Trace Abnormal Negat christiano mg/dL [facility] Leukocyte esterase Test strip Ql (U) Negative Negative Soren/uL [facility] Mucus LM.HPF (Urine sed) [#/Area] Few Negative /LPF [facility] Nitrite Ql (U) Negative Negative [facility] th pH (U) 7.5 [pH] 5.0 - 8.0 pH [facility] Protein (U) [Mass/Vol] 20 mg/dL Abnormal Negative [facility] RBC LM.HPF (Urine sed) [#/Area] 3-5 Abnormal [facility] Specific gravity (U) [Rel density] 1.020 1.005 - 1.030 [facility] Urobilinogen (U) [Mass/Vol] 3 mg/dL Abnormal Normal (0-1) [facility] WBC LM.HPF (Urine sed) [#/Area] 0-2 [facility] XR Chest Single viewon 04-19 Radiology Study observation (narrative) [facility] Bacteria identified Aer cx N om (Lower resp)Ordered By: Salina Greenberg on 04-17-2023 Gram Stain Result Rare Polymorphonuclear leukocytes per low power field Abnormal [facility] Gram Stain Result Moderate Epithelial cells per low power field Abnormal [facility] Gram Stain Result Positive Abnormal [facility]alth Gram Stain Result Few Yeast Abnormal [facility] Interpretation and review of laboratory results Abnormal [facility] Basic metabolic 1998 panelOr dered By: Alok Wade on 04-17-2023 Anion gap [Moles/Vol] 12 mmol/L 3 - 13 mmol/L [facility] Calcium [Mass/Vol] 7.6 mg/dL Low 8.4 - 10. 4 mg/dL [facility] Chloride [Moles/Vol] 97 mmol/L Low 98 - 10 7 mmol/L [facility] CO2 [Moles/Vol] 26 mmol/L 22 - 30 mmol/L [facility] Creatinine [Mass/Vol] 0.78 mg/dL 0.66 - 1.25 mg/dL [facility] GFR/1.73 sq M.predicted MDRD (S/P/Bld) [Vol rate/Area] - PINF [facility] Comment on above: Calculation based on the Chronic Kidney Disease Epidemiology Collaboration (CKD-EPI) equation refit without adjustment for race Glucose [Mass/Vol] 150 mg/dL High 70 - 100 mg/dL [facility] Interpretation and review of laboratory results Abnormal [facility] Potassium [Moles/Vol] 3.0 mmol/L Low 3.5 - 5.1 mmol/L [facility] Sodium [Moles/Vol] 135 mmol/L 135 - 145 mmol/L [facility] Urea nitrogen [Mass/Vol] 13 mg/dL 9 - 20 mg/dL [facility] CBC W Auto Differential pane l (Bld)Ordered By: Naila Luna on 04-17-2023 Erythrocyte distribution width (RBC) [Ratio] 24.9 % High 11.5 - 14.5 % [facility] Comment on above: I-Anisocytosis Hematocrit (Bld) [Volume fraction] 41.1 % 40.0 - 52.0 % [facility] Hemoglobin (Bld) [Mass/Vol] 13.7 g/dL 13.0 - 18.0 g/dL [facility] Interpretation and review of laboratory results Abnormal [facility] MCH (RBC) [Entitic mass] 29.5 pg 26.0 - 34.0 pg [facility] MCHC (RBC) [Mass/Vol] 33.2 % 32.0 - 36.0 % [facility] MCV (RBC) [Entitic vol] 88.8 fL 80.0 - 98.0 fL [facility] Nucleated RBC/100 WBC (Bld) [Ratio] 0.2 % [facility] Platelet mean volume (Bld) [Entitic vol] 7.1 fL Low 7.4 - 12.4 fL [facility] Platelets (Bld) [#/Vol] 300 10*3/uL 140 - 440 10*3/uL [facility] RBC (Bld) [#/Vol] 4.64 10*6/uL 4.40 - 5.9 0 10*6/uL [facility] WBC (Bld) [#/Vol] 7.6 10*3/uL 3.6 - 10.7 10*3/uL [facility] CRP [Mass/Vol]on 04-17-2023 Interpretation and review of laboratory results Normal [facility] Hepatic function 2000 panelo n 04-17-2023 Albumin [Mass/Vol] 3.4 g/dL Low 3.5 - 5.0 g/dL [facility] ALP [Catalytic activity/Vol] 120 U/L 38 - 126 U/L [facility] ALT [Catalytic activity/Vol] 62 U/L High 0 - 49 U/L [facility] AST [Catalytic activity/Vol] 134 U/L High 15 - 46 U/L [facility] Bilirubin [Mass/Vol] 0.7 mg/dL 0.2 - 1 .3 mg/dL [facility] Bilirubin.conjugated [Mass/Vol] 0.0 mg/dL 0.0 - 0.3 mg/dL [facility] Interpretation and review of laboratory results Abnormal [facility] Protein [Mass/Vol] 6.1 g/dL Low 6.3 - 8.2 g/dL [facility] Laboratory - Chemistry and C hemistry - challengeon 04-17-2023 CRP [Mass/[facility]] [facility].3 [facility] Troponin I.cardiac [Mass/Vol] ng/mL NINF - 0.034 ng/mL [facility] Procalcitonin [Mass/Vol] 0.10 ng/mL High 0.00 - 0.09 ng/mL [facility] Magnesium [Mass/Vol] 1.4 mg/dL Low 1.6 - 2 .3 mg/dL [facility] Troponin I.cardiac [Mass/Vol] ng/mL NINF - 0.034 ng/mL [facility] Average glucose Estimated from glycated hemoglobin (Bld) [Mass/Vol] 91 mg/dL [facility] Troponin I.cardiac [Mass/Vol] ng/mL NINF - 0.034 ng/mL [facility] Laboratory - Drug toxicology Ordered By: Rachel Almanza on 04-17-2023 Amphetamines Screen method >1000 ng/mL Ql (U) Negative [facility] Barbiturates Screen method >200 ng/mL Ql (U) Positive [facility] Benzodiazepines Ql (U) Negative [facility] Methadone Screen Ql (U) Positive [facility] Opiates Screen Ql (U) Positive [facility] oxyCODONE Ql (U) Negative [facility] Phencyclidine Ql (U) Negative [facility] Laboratory - Hematology and Cell countson 04-17-2023 HbA1c (Bld) [Mass fraction] 4.8 % NINF - 5.7 % [facility] Comment on above: Normal less than 5.7 [...] poor specimen quality. Recollect if clinically indicated. [facility] Lipid 1996 panelon 3 Cholesterol [Mass/Vol] 207 mg/dL High NINF - 200 mg/dL [facility] Cholesterol in HDL [Mass/Vol] 84 mg/dL High 40 - 60 mg/dL [facility] Cholesterol in LDL [Mass/Vol] 102 mg/dL High 0 - <100 [facility] Cholesterol.total/Namita sterol in HDL [Mass ratio] 2 {ratio} [facility] Comment on above: Ref Range: < 3 Low Risk for CHD 3-6 Mod Risk for CHD > 6 High Risk for CHD Interpretation and review of laboratory results Abnormal [facility] Triglyceride [Mass/Vol] 107 mg/dL NINF - 150 mg/dL [facility] Magnesium [Mass/Vol]on 04-17 Interpretation and review of laboratory results Abnormal [facility] Manual differential performe d Ql (Bld)Ordered By: Christian Estrada on 04-17-2023 Anisocytosis Ql (Bld) Slight Abnormal (none) [facility] Cells Counted Total (Bld) [#] 100 {cells} [facility] Differential Method Automated differential reported after manual slide review [facility] Interpretation and review of laboratory results Abnormal [facility] Leukocyte morphology finding Nom (Bld) Normal [facility] Lymphocytes (Bld) [#/Vol] 2.5 10*3/uL 1.0 - 4.3 10*3/uL [facility] Lymphocytes Manual 33 [facility] Lymphocytes/100 WBC (Bld) 33 % 20 - 40 % [facility] Macrocytes Ql (Bld) Slight Abnormal (none) [facility] Monocytes (Bld) [#/Vol] 0.7 10*3/uL 0.0 - 0.8 10*3/uL [facility] Monocytes Manual 9 [facility] Monocytes/100 WBC (Bld) 9 % 2 - 10 % [facility] Neutrophils (Bld) [#/Vol] 4.4 10*3/uL 1.8 - 7.0 10*3/uL [facility] Neutrophils Manual 58 [facility] Ovalocytes LM Ql (Bld) Slight Abnormal (none) [facility] Platelet morphology finding Nom (Bld) Normal [facility] Poikilocytosis LM Ql (Bld) Slight Abnormal (none) [facility] Segmented neutrophils/100 WBC (Bld) 58 % 40 - 80 % [facility] WBC corrected for nucl RBC (Bld) [#/Vol] 7.6 10*3/uL 3.6 - 10.7 10*3/uL [facility] No Panel InformationOrdered By: Rachel Almanza on 04-17-2023 COCAINE METAB. SCREEN Negative [facility] The expected value for all of [...] is needed, request confirmation under separate order. [facility] No Panel InformationOrdered By: Juana Mon on 04-17-2023 Interpretation and review of laboratory results Normal [facility] Legionella pneumophila Ag Not detected Not Detected [facility] Streptococcus pneumoniae Ag Not detected Not Detected [facility] Methodology: Lateral flow enzyme immunoassay This assay is approved for detection of antigens to Streptococcus pneumoniae and Legionella pneumophila serogroup 1; however, other L. pneumophila serogroups may also be detected. [facility] No Panel Informationon 04-17 [facility] Procalcitonin [Mass/Vol]on 1 Interpretation and review of laboratory results Abnormal [facility] PCT <0.50 = Low risk of severe sepsis and/or septic shock. PCT >2.00 = High risk of severe sepsis and/or septic shock. [facility] Troponin I.cardiac [Mass/Vol ]on 04-17-2023 Interpretation and review of laboratory results Normal [facility] Patients with high levels of Biotin oral intake (ie >5 mg/day) may have falsely decreased Troponin levels. [facility] Interpretation and review of laboratory results Normal [facility] Patients with high levels of Biotin oral intake (ie >5 mg/day) may have falsely decreased Troponin levels. [facility] Interpretation and review of laboratory results Normal [facility] Slightly Hemolyzed. Interpret Troponin with caution. Patients with high levels of Biotin oral intake (ie >5 mg/day) may have falsely decreased Troponin levels. [facility] Basic metabolic 1998 panelon 04-16-2023 Anion gap [Moles/Vol] 12 mmol/L 3 - 13 mmol/L [facility] Calcium [Mass/Vol] 8.2 mg/dL Low 8.4 - 10. 4 mg/dL [facility] Chloride [Moles/Vol] 93 mmol/L Low 98 - 10 7 mmol/L [facility] CO2 [Moles/Vol] 30 mmol/L 22 - 30 mmol/L [facility] Creatinine [Mass/Vol] 0.73 mg/dL 0.66 - 1.25 mg/dL [facility] GFR/1.73 sq M.predicted MDRD (S/P/Bld) [Vol rate/Area] - PINF [facility] Comment on above: Calculation based on the Chronic Kidney Disease Epidemiology Collaboration (CKD-EPI) equation refit without adjustment for race Glucose [Mass/Vol] 95 mg/dL 70 - 100 mg/dL [facility] Potassium [Moles/Vol] 5.7 mmol/L High 3.5 - 5.1 mmol/L [facility] Sodium [Moles/Vol] 134 mmol/L Low 135 - 145 mmol/L [facility] Urea nitrogen [Mass/Vol] 14 mg/dL 9 - 20 mg/dL [facility] CBC W Auto Differential pane l (Bld)Ordered By: Monica Daily on 04-16-2023 Basophils (Bld) [#/Vol] 0.1 10*3/uL 0.0 - 0.2 10*3/uL [facility] Basophils/100 WBC (Bld) 1.0 % 0.0 - 2.0 % [facility] Eosinophils (Bld) [#/Vol] 0.1 10*3/uL 0.0 - 0.5 10*3/uL [facility] Eosinophils/100 WBC (Bld) 0.5 % Low 1.0 - 6.0 % [facility] Erythrocyte distribution width (RBC) [Ratio] 22.2 % High 11.5 - 14.5 % [facility] Comment on above: Marked Anisocytosis (RDW >21.0) Moderate Poikilocytosis (few teardrop, few stomatocytes, few target cells, few ovalocytes seen / field on slide) Hematocrit (Bld) [Volume fraction] 45.0 % 40.0 - 52.0 % [facility] Hemoglobin (Bld) [Mass/Vol] 15.4 g/dL 13.0 - 18.0 g/dL [facility] Immature granulocytes (Bld) [#/Vol] 0.0 10*3/uL NINF - 0.0 10*3/uL [facility] Immature granulocytes/100 WBC (Bld) 0.3 % High NINF - 0.0 % [facility] Interpretation and review of laboratory results Abnormal [facility] Lymphocytes (Bld) [#/Vol] 2.6 10*3/uL 1.0 - 4.3 10*3/uL [facility] Lymphocytes/100 WBC (Bld) 25.7 % 20.0 - 40.0 % [facility] MCH (RBC) [Entitic mass] 29.2 pg 26.0 - 34.0 pg [facility] MCHC (RBC) [Mass/Vol] 34.2 % 32.0 - 36.0 % [facility] MCV (RBC) [Entitic vol] 85.4 fL 80.0 - 98.0 fL [facility] Monocytes (Bld) [#/Vol] 0.8 10*3/uL 0.0 - 0.8 10*3/uL [facility] Monocytes/100 WBC (Bld) 8.3 % 2.0 - 10.0 % [facility] Neutrophils (Bld) [#/Vol] 6.4 10*3/uL 1.8 - 7.0 10*3/uL [facility] Neutrophils/100 WBC (Bld) 64.2 % 40.0 - 80.0 % [facility] Platelet mean volume (Bld) [Entitic vol] 8.6 fL 7.4 - 12.4 fL [facility] Comment on above: MPV is a calculated measurement using platelet volume ratio Platelets (Bld) [#/Vol] 335 10*3/uL 140 - 440 10*3/uL [facility] RBC (Bld) [#/Vol] 5.27 10*6/uL 4.40 - 5.9 0 10*6/uL [facility] WBC (Bld) [#/Vol] 10.0 10*3/uL 3.6 - 10.7 10*3/uL [facility] Ethanol (Bld) [Mass/Vol]on Ethanol [Mass/Vol] g/dL High 0.000 - 0 .010 g/dL [facility] Fibrin D-dimer FEU (PPP) [Ma ss/Vol]on 04-16-2023 Interpretation and review of laboratory results Normal [facility] D-Dimer values of <0.50 mg/L FEU can be used in combination with a pre-test probability model (e.g. Well's) to exclude pulmonary embolism (PE) disease, as well as an aid in the diagnosis of deep vein thrombosis (DVT). [facility] Laboratory - Chemistry and C hemistry - challengeon 04-16-2023 Troponin I.cardiac [Mass/Vol] 0.022 ng/mL NINF - 0.034 ng/mL [facility] Laboratory - Coagulationon Fibrin D-dimer FEU (PPP) [Mass/Vol] 0.42 mg/L NINF - 0.50 mg/L [facility] Laboratory - Microbiology an d Antimicrobial susceptibilityon 04-16-2023 FLUAV RNA CONNOR+probe Ql (Resp) Not detected Not Detected [facility] FLUBV RNA CONNOR+probe Ql (Resp) Not detected Not Detected [facility] RSV RNA CONNOR+probe Ql (Resp) Not detected Not Detected [facility] SARS-CoV-2 (COVID-19) RNA CONNOR+probe Ql (Resp) Not detected Not Detected [facility] SARS-CoV-2 (COVID-19) RNA CONNOR+probe Ql (Unsp spec) Methodology: real-time, RT-PCR The SARS-CoV-2, Flu A/B, and RSV Combo assay is intended for in vitro diagnostic use under the FDA Emergency Use Authorization (EUA). This test has not been FDA cleared or approved. In compliance with this authorization, please visit www.fda.gov/media/451 899/download or www.[employer].gov/media/329 803/download to access the applicable information sheets. [facility] Natriuretic peptide B [Mass/ Vol]on 04-16-2023 Natriuretic peptide B (Bld) [Mass/Vol] pg/mL <20 - 100 pg/mL [facility] No Panel Informationon 04-16 Interpretation and review of laboratory results Abnormal [facility] Interpretation and review of laboratory results Normal [facility] P [place] 44 degrees [facility] Interval 160 ms [facility] QRS [place] 30 degrees [place] [facility] QRSD Interval 110 ms [facility] QT Interval 417 ms [facility] QTC Interval 526 ms [facility] T Wave [place] 137 degrees [facility] EKG shows NSR, ryan l axis, normal PA and QRS intervals, prolonged QTC, no STEMI, no SVT. There is LVH. 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 Previous EKG shows NSR with old inferior AL as well - unchanged. Electronically Signed On 04-16-2023 21:44:03 EST by Marquise Falk MD - 04/16/2023 IMPRESSION: EKG shows NSR, normal axis, normal PA and QRS intervals, prolonged QTC, no STEMI, no SVT. There is LVH. 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 Previous EKG shows NSR with old inferior AL as well - unchanged. Electronically Signed On 04-16-2023 21:44:03 EST by Marquise Nair [facility] SARS-CoV-2, Flu A/B, and RSV Comboon 04-16-2023 Interpretation and review of laboratory results Normal [facility] Troponin I.cardiac [Mass/Vol ]on 04-16-2023 Patients with high levels of Biotin oral intake (ie >5 mg/day) may have falsely decreased Troponin levels. [facility] Vital signson 04-16-2023 Heart rate 95 /min bpm [facility] XR Chest Single viewon 04-16 1. Mild [...] pleural effusion. No pneumothorax. Heart size normal. [facility] Dev Couch MD - 04/16/2023 Patient [...] Electronically Signed Date/Time: 04/16/2023 11:00 PM EST [facility] Radiology Study observation (narrative) [facility] XR Chest Single viewOrdered By: Dev Couch on 04-16-2023 [facility] [employer] Work Phone: CBC W Auto Differential pane l (Bld)on 02-03-2023 Basophils (Bld) [#/Vol] 0.1 10*3/uL 0.0 - 0.2 10*3/uL [facility] Basophils/100 WBC (Bld) 0.4 % 0.0 - 2.0 % [facility] Eosinophils (Bld) [#/Vol] 0.1 10*3/uL 0.0 - 0.5 10*3/uL [facility] Eosinophils/100 WBC (Bld) 0.8 % Low 1.0 - 6.0 % [facility] Erythrocyte distribution width (RBC) [Ratio] 19.4 % High 11.5 - 14.5 % [facility] Hematocrit (Bld) [Volume fraction] 42.5 % 40.0 - 52.0 % [facility] Hemoglobin (Bld) [Mass/Vol] 13.7 g/dL 13.0 - 18.0 g/dL [facility] Interpretation and review of laboratory results Abnormal [facility] Lymphocytes (Bld) [#/Vol] 3.0 10*3/uL 1.0 - 4.3 10*3/uL [facility] Lymphocytes/100 WBC (Bld) 20.1 % 20.0 - 40.0 % [facility] MCH (RBC) [Entitic mass] 26.8 pg 26.0 - 34.0 pg [facility] MCHC (RBC) [Mass/Vol] 32.3 % 32.0 - 36.0 % [facility] MCV (RBC) [Entitic vol] 83.1 fL 80.0 - 98.0 fL [facility] Monocytes (Bld) [#/Vol] 0.9 10*3/uL High 0.0 - 0.8 10*3/uL [facility] Monocytes/100 WBC (Bld) 6.3 % 2.0 - 10.0 % [facility] Neutrophils (Bld) [#/Vol] 10.8 10*3/uL High 1.8 - 7.0 10*3/uL [facility] Neutrophils/100 WBC (Bld) 72.4 % 40.0 - 80.0 % [facility] Nucleated RBC/100 WBC (Bld) [Ratio] 0.1 % [facility] Platelet mean volume (Bld) [Entitic vol] 7.0 fL Low 7.4 - 12.4 fL [facility] Platelets (Bld) [#/Vol] 479 10*3/uL High 140 - 440 10*3/uL [facility] RBC (Bld) [#/Vol] 5.12 10*6/uL 4.40 - 5.9 0 10*6/uL [facility] WBC (Bld) [#/Vol] 14.9 10*3/uL High 3.6 - 10.7 10*3/uL [facility] Comprehensive metabolic 1998 panelon 02-03-2023 Albumin [Mass/Vol] 3.3 g/dL Low 3.5 - 5.0 g/dL [facility] ALP [Catalytic activity/Vol] 94 U/L 38 - 126 U/L [facility] ALT [Catalytic activity/Vol] 15 U/L 0 - 49 U/L [facility] Anion gap [Moles/Vol] 2 mmol/L Low 3 - 13 mmol/L [facility] AST [Catalytic activity/Vol] 49 U/L High 15 - 46 U/L [facility] Bilirubin [Mass/Vol] 0.5 mg/dL 0.2 - 1 .3 mg/dL [facility] Calcium [Mass/Vol] 8.3 mg/dL Low 8.4 - 10. 4 mg/dL [facility] Chloride [Moles/Vol] 100 mmol/L 98 - 10 7 mmol/L [facility] CO2 [Moles/Vol] 30 mmol/L 22 - 30 mmol/L [facility] Creatinine [Mass/Vol] 0.64 mg/dL Low 0.66 - 1.25 mg/dL [facility] GFR/1.73 sq M.predicted MDRD (S/P/Bld) [Vol rate/Area] - PINF [facility] Comment on above: Calculation based on the Chronic Kidney Disease Epidemiology Collaboration (CKD-EPI) equation refit without adjustment for race Glucose [Mass/Vol] 98 mg/dL 70 - 100 mg/dL [facility] Interpretation and review of laboratory results Abnormal [facility] Potassium [Moles/Vol] 4.1 mmol/L 3.5 - 5.1 mmol/L [facility] Protein [Mass/Vol] 6.5 g/dL 6.3 - 8.2 g/dL [facility] Sodium [Moles/Vol] 132 mmol/L Low 135 - 145 mmol/L [facility] Urea nitrogen [Mass/Vol] 25 mg/dL High 9 - 20 mg/dL [facility] Slightly hemolyzed [facility] Magnesiumon 02-03-2023 Magnesium [Mass/Vol] 2.0 mg/dL 1.6 - 2 .3 mg/dL [facility] No Panel Informationon 02-03 Interpretation and review of laboratory results Normal [facility] Phosphate [Moles/Vol]on 01-16 Phosphate [Mass/Vol] 4.4 mg/dL 2.5 - 4 .5 mg/dL [facility] CBC W Auto Differential pane l (Bld)on 02-02-2023 Basophils (Bld) [#/Vol] 0.0 10*3/uL 0.0 - 0.2 10*3/uL [facility] Basophils/100 WBC (Bld) 0.3 % 0.0 - 2.0 % [facility] Eosinophils (Bld) [#/Vol] 0.0 10*3/uL 0.0 - 0.5 10*3/uL [facility] Eosinophils/100 WBC (Bld) 0.2 % Low 1.0 - 6.0 % [facility] Erythrocyte distribution width (RBC) [Ratio] 19.1 % High 11.5 - 14.5 % [facility] Hematocrit (Bld) [Volume fraction] 39.7 % Low 40.0 - 52.0 % [facility] Hemoglobin (Bld) [Mass/Vol] 12.6 g/dL Low 13.0 - 18.0 g/dL [facility] Interpretation and review of laboratory results Abnormal [facility] Lymphocytes (Bld) [#/Vol] 0.9 10*3/uL Low 1.0 - 4.3 10*3/uL [facility] Lymphocytes/100 WBC (Bld) 7.7 % Low 20.0 - 40.0 % [facility] MCH (RBC) [Entitic mass] 26.7 pg 26.0 - 34.0 pg [facility] MCHC (RBC) [Mass/Vol] 31.8 % Low 32.0 - 36.0 % [facility] MCV (RBC) [Entitic vol] 84.0 fL 80.0 - 98.0 fL [facility] Monocytes (Bld) [#/Vol] 0.7 10*3/uL 0.0 - 0.8 10*3/uL [facility] Monocytes/100 WBC (Bld) 6.5 % 2.0 - 10.0 % [facility] Neutrophils (Bld) [#/Vol] 9.7 10*3/uL High 1.8 - 7.0 10*3/uL [facility] Neutrophils/100 WBC (Bld) 85.3 % High 40.0 - 80.0 % [facility] Nucleated RBC/100 WBC (Bld) [Ratio] 0.0 % [facility] Platelet mean volume (Bld) [Entitic vol] 7.1 fL Low 7.4 - 12.4 fL [facility] Platelets (Bld) [#/Vol] 367 10*3/uL 140 - 440 10*3/uL [facility] RBC (Bld) [#/Vol] 4.73 10*6/uL 4.40 - 5.9 0 10*6/uL [facility] WBC (Bld) [#/Vol] 11.4 10*3/uL High 3.6 - 10.7 10*3/uL [facility] Comprehensive metabolic 1998 panelon 02-02-2023 Albumin [Mass/Vol] 3.1 g/dL Low 3.5 - 5.0 g/dL [facility] ALP [Catalytic activity/Vol] 110 U/L 38 - 126 U/L [facility] ALT [Catalytic activity/Vol] 15 U/L 0 - 49 U/L [facility] Anion gap [Moles/Vol] 3 mmol/L 3 - 13 mmol/L [facility] AST [Catalytic activity/Vol] 31 U/L 15 - 46 U/L [facility] Bilirubin [Mass/Vol] 0.3 mg/dL 0.2 - 1 .3 mg/dL [employer] Calcium [Mass/Vol] 8.1 mg/dL Low 8.4 - 10. 4 mg/dL [facility] Chloride [Moles/Vol] 101 mmol/L 98 - 10 7 mmol/L [facility] CO2 [Moles/Vol] 27 mmol/L 22 - 30 mmol/L [facility] Creatinine [Mass/Vol] 0.52 mg/dL Low 0.66 - 1.25 mg/dL [facility] GFR/1.73 sq M.predicted MDRD (S/P/Bld) [Vol rate/Area] - PINF [facility] Comment on above: Calculation based on the Chronic Kidney Disease Epidemiology Collaboration (CKD-EPI) equation refit without adjustment for race Glucose [Mass/Vol] 121 mg/dL High 70 - 100 mg/dL [facility] Interpretation and review of laboratory results Abnormal [facility] Potassium [Moles/Vol] 4.6 mmol/L 3.5 - 5.1 mmol/L [facility] Protein [Mass/Vol] 6.3 g/dL 6.3 - 8.2 g/dL [facility] Sodium [Moles/Vol] 130 mmol/L Low 135 - 145 mmol/L [facility] Urea nitrogen [Mass/Vol] 21 mg/dL High 9 - 20 mg/dL [facility] ECG 12 leadOrdered By: Yvonne Marie on 02-02-2023 Heart rate 87 /min bpm [employer] Work Phone: P [place] 34 degrees [employer] Work Phone: PA Interval 160 ms [employer] Work Phone: QRS [place] 15 degrees [employer] Work Phone: QRSD Interval [address] [address] [facility] [employer] Work Phone: QT Interval 404 ms [employer] [facility] Work Phone: QTC Interval 486 ms [employer] Work Phone: T Wave [place] 20 degrees [facility] Work Phone: [employer] Work Phone: ECG 12 leadon 02-02-2023 SINUS RHYTHM LEFT VENTRICULAR HYPERTROPHY Electronically Signed On 02-02-2023 12:19:40 EDT by Adam Cartwright MD - 02/02/2023 IMPRESSION: SINUS RHYTHM LEFT VENTRICULAR HYPERTROPHY Electronically Signed On 02-02-2023 12:19:40 EDT by Adam Marie [facility] Magnesiumon 02-02-2023 Magnesium [Mass/Vol] 2.1 mg/dL 1.6 - 2 .3 mg/dL [facility] No Panel Informationon 02-02 [facility] Interpretation and review of laboratory results Normal [facility] Phosphate [Moles/Vol]on 01-16 Phosphate [Mass/Vol] 3.6 mg/dL 2.5 - 4 .5 mg/dL [facility] ANAOrdered By: Lowell Valerio on 02-01-2023 ESTER Pattern [facility] ESTER Titer [facility] TESTED BY INDIRECT IMMUNOFLUORESCENCE ASSAY (IFA) [facility] Anti-neutrophilic cytoplasmi c antibodyon 02-01-2023 C-ANCA Not detected Not Detected [facility] Interpretation and review of laboratory results Normal [facility] P-ANCA Not detected Not Detected [facility] Bacteria identified Aer cx N om (Lower resp)Ordered By: Salina Greenberg on 02-01-2023 Gram Stain Result Moderate Polymorphonuclear leukocytes per low power field Abnormal [facility] Gram Stain Result Few Epithelial cells per low power field Abnormal [facility] Gram Stain Result Positive Abnormal [facility] Gram Stain Result Negative [facility] Interpretation and review of laboratory results Abnormal [facility] CBC W Auto Differential pane l (Bld)Ordered By: Erlin Quintana on 02-01-2023 Basophils (Bld) [#/Vol] 0.0 10*3/uL 0.0 - 0.2 10*3/uL [facility] Basophils/100 WBC (Bld) 0.2 % 0.0 - 2.0 % [facility] Eosinophils (Bld) [#/Vol] 0.0 10*3/uL 0.0 - 0.5 10*3/uL [facility] Eosinophils/100 WBC (Bld) 0.1 % Low 1.0 - 6.0 % [facility] Erythrocyte distribution width (RBC) [Ratio] 18.9 % High 11.5 - 14.5 % [facility] Hematocrit (Bld) [Volume fraction] 38.7 % Low 40.0 - 52.0 % [facility] Hemoglobin (Bld) [Mass/Vol] 12.5 g/dL Low 13.0 - 18.0 g/dL [facility] Interpretation and review of laboratory results Abnormal [facility] Lymphocytes (Bld) [#/Vol] 0.5 10*3/uL Low 1.0 - 4.3 10*3/uL [facility] Lymphocytes/100 WBC (Bld) 3.4 % Low 20.0 - 40.0 % [facility] MCH (RBC) [Entitic mass] 26.7 pg 26.0 - 34.0 pg [facility] MCHC (RBC) [Mass/Vol] 32.1 % 32.0 - 36.0 % [facility] MCV (RBC) [Entitic vol] 83.1 fL 80.0 - 98.0 fL [facility] Monocytes (Bld) [#/Vol] 0.5 10*3/uL 0.0 - 0.8 10*3/uL [facility] Monocytes/100 WBC (Bld) 3.3 % 2.0 - 10.0 % [facility] Neutrophils (Bld) [#/Vol] 12.9 10*3/uL High 1.8 - 7.0 10*3/uL [facility] Neutrophils/100 WBC (Bld) 93.0 % High 40.0 - 80.0 % [facility] Nucleated RBC/100 WBC (Bld) [Ratio] 0.0 % [facility] Platelet mean volume (Bld) [Entitic vol] 7.0 fL Low 7.4 - 12.4 fL [facility] Platelets (Bld) [#/Vol] 367 10*3/uL 140 - 440 10*3/uL [facility] RBC (Bld) [#/Vol] 4.66 10*6/uL 4.40 - 5.9 0 10*6/uL [facility] WBC (Bld) [#/Vol] 13.9 10*3/uL High 3.6 - 10.7 10*3/uL [facility] Comprehensive metabolic 1998 panelon 02-01-2023 Albumin [Mass/Vol] 3.2 g/dL Low 3.5 - 5.0 g/dL [facility] ALP [Catalytic activity/Vol] 120 U/L 38 - 126 U/L [facility] ALT [Catalytic activity/Vol] 15 U/L 0 - 49 U/L [facility] Anion gap [Moles/Vol] 4 mmol/L 3 - 13 mmol/L [facility] AST [Catalytic activity/Vol] 26 U/L 15 - 46 U/L [facility] Bilirubin [Mass/Vol] 0.2 mg/dL 0.2 - 1 .3 mg/dL [facility] Calcium [Mass/Vol] 8.3 mg/dL Low 8.4 - 10. 4 mg/dL [facility] Chloride [Moles/Vol] 100 mmol/L 98 - 10 7 mmol/L [facility] CO2 [Moles/Vol] 30 mmol/L 22 - 30 mmol/L [facility] Creatinine [Mass/Vol] 0.47 mg/dL Low 0.66 - 1.25 mg/dL [facility] GFR/1.73 sq M.predicted MDRD (S/P/Bld) [Vol rate/Area] - PINF [facility] Comment on above: Calculation based on the Chronic Kidney Disease Epidemiology Collaboration (CKD-EPI) equation refit without adjustment for race Glucose [Mass/Vol] 142 mg/dL High 70 - 100 mg/dL [facility] Interpretation and review of laboratory results Abnormal [facility] Potassium [Moles/Vol] 4.0 mmol/L 3.5 - 5.1 mmol/L [facility] Protein [Mass/Vol] 6.5 g/dL 6.3 - 8.2 g/dL [facility] Sodium [Moles/Vol] 134 mmol/L Low 135 - 145 mmol/L [facility] Urea nitrogen [Mass/Vol] 23 mg/dL High 9 - 20 mg/dL [facility] Magnesiumon 02-01-2023 Magnesium [Mass/Vol] 2.3 mg/dL 1.6 - 2 .3 mg/dL [facility] No Panel Informationon 02-01 Interpretation and review of laboratory results Normal [facility] Phosphate [Moles/Vol]on 01-16 Phosphate [Mass/Vol] 3.2 mg/dL 2.5 - 4 .5 mg/dL [facility] Procalcitonin Teston 023 Procalcitonin [Mass/Vol] 1.16 ng/mL High 0.00 - 0.09 ng/mL [facility] Procalcitonin [Mass/Vol]on 1 Interpretation and review of laboratory results Abnormal [facility] PCT <0.50 = Low risk of severe sepsis and/or septic shock. PCT >2.00 = High risk of severe sepsis and/or septic shock. [facility] Respiratory culture and Stai nOrdered By: Salina Greenberg on 02-01-2023 Bacteria identified Aer cx Nom (Lower resp) Few respiratory mcak present. [facility] XR Chest Single viewon 02-01 Patient Name: [...] Electronically Signed Date/Time: 02/01/2023 2:18 PM EDT [facility] Radiology Study observation (narrative) [facility] XR Chest Single viewOrdered By: Parris Carty on 02-01-2023 [facility] [employer] Work Phone: CBC W Auto Differential pane l (Bld)Ordered By: Willian Oliveros on 01-31-2023 Basophils (Bld) [#/Vol] 0.0 10*3/uL 0.0 - 0.2 10*3/uL [facility] Basophils/100 WBC (Bld) 0.2 % 0.0 - 2.0 % [facility] Eosinophils (Bld) [#/Vol] 0.0 10*3/uL 0.0 - 0.5 10*3/uL [facility] Eosinophils/100 WBC (Bld) 0.3 % Low 1.0 - 6.0 % [facility] Erythrocyte distribution width (RBC) [Ratio] 19.5 % High 11.5 - 14.5 % [facility] Hematocrit (Bld) [Volume fraction] 39.3 % Low 40.0 - 52.0 % [facility] Hemoglobin (Bld) [Mass/Vol] 12.5 g/dL Low 13.0 - 18.0 g/dL [facility] Interpretation and review of laboratory results Abnormal [facility] Lymphocytes (Bld) [#/Vol] 0.4 10*3/uL Low 1.0 - 4.3 10*3/uL [facility] Lymphocytes/100 WBC (Bld) 3.6 % Low 20.0 - 40.0 % [facility] MCH (RBC) [Entitic mass] 26.7 pg 26.0 - 34.0 pg [facility] MCHC (RBC) [Mass/Vol] 31.7 % Low 32.0 - 36.0 % [facility] MCV (RBC) [Entitic vol] 84.0 fL 80.0 - 98.0 fL [facility] Monocytes (Bld) [#/Vol] 0.4 10*3/uL 0.0 - 0.8 10*3/uL [facility] Monocytes/100 WBC (Bld) 3.6 % 2.0 - 10.0 % [facility] Neutrophils (Bld) [#/Vol] 10.6 10*3/uL High 1.8 - 7.0 10*3/uL [facility] Neutrophils/100 WBC (Bld) 92.3 % High 40.0 - 80.0 % [facility] Nucleated RBC/100 WBC (Bld) [Ratio] 0.0 % [facility] Platelet mean volume (Bld) [Entitic vol] 7.1 fL Low 7.4 - 12.4 fL [facility] Platelets (Bld) [#/Vol] 349 10*3/uL 140 - 440 10*3/uL [facility] RBC (Bld) [#/Vol] 4.68 10*6/uL 4.40 - 5.9 0 10*6/uL [facility] WBC (Bld) [#/Vol] 11.5 10*3/uL High 3.6 - 10.7 10*3/uL [facility] Comprehensive metabolic 1998 panelon 01-31-2023 Albumin [Mass/Vol] 3.2 g/dL Low 3.5 - 5.0 g/dL [facility] ALP [Catalytic activity/Vol] 124 U/L 38 - 126 U/L [facility] ALT [Catalytic activity/Vol] 15 U/L 0 - 49 U/L [facility] Anion gap [Moles/Vol] 2 mmol/L Low 3 - 13 mmol/L [facility] AST [Catalytic activity/Vol] 23 U/L 15 - 46 U/L [facility] Bilirubin [Mass/Vol] 0.3 mg/dL 0.2 - 1 .3 mg/dL [facility] Calcium [Mass/Vol] 8.2 mg/dL Low 8.4 - 10. 4 mg/dL [facility] Chloride [Moles/Vol] 99 mmol/L 98 - 10 7 mmol/L [facility] CO2 [Moles/Vol] 33 mmol/L High 22 - 30 mmol/L [facility] Creatinine [Mass/Vol] 0.49 mg/dL Low 0.66 - 1.25 mg/dL [facility] GFR/1.73 sq M.predicted MDRD (S/P/Bld) [Vol rate/Area] - PINF [facility] Comment on above: Calculation based on the Chronic Kidney Disease Epidemiology Collaboration (CKD-EPI) equation refit without adjustment for race Glucose [Mass/Vol] 164 mg/dL High 70 - 100 mg/dL [facility] Potassium [Moles/Vol] 3.9 mmol/L 3.5 - 5.1 mmol/L [facility] Protein [Mass/Vol] 6.3 g/dL 6.3 - 8.2 g/dL [facility] Sodium [Moles/Vol] 134 mmol/L Low 135 - 145 mmol/L [facility] Urea nitrogen [Mass/Vol] 27 mg/dL High 9 - 20 mg/dL [facility] HIV 1+2 Ab+HIV1 p24 Ag IA Ql on 01-31-2023 Interpretation and review of laboratory results Normal [facility] HIV-1 and HIV-2 Antigen-Anti body Screenon 01-31-2023 HIV 1+2 Ab+HIV1 p24 Ag IA Ql Non-Reactive Nonreactive [facility] Comment on above: The specimen was non -reactive for HIV-1 and HIV-2 antibodies and p24 antigen using an FDA-cleared 4th generation HIV test. Based on this non-reactive screen result, further reflexive testing was not indicated and was, therefore, not performed. Magnesiumon 01-31-2023 Magnesium [Mass/Vol] 2.7 mg/dL High 1.6 - 2 .3 mg/dL [facility] No Panel Informationon 01-31 Interpretation and review of laboratory results Abnormal [facility] POCT arterial blood gason Base excess Calc (Bld) [Moles/Vol] 4.0 mmol/L High -3.0 - 3.0 mmol/L [facility] CO2 (Bld) [Partial pressure] 40.8 mm[Hg] [facility] CO2 [Moles/Vol] 29.7 mmol/L High 23.0 - 27.0 mmol/L [facility] FIO2 50 [facility] Comment on above: Performed by [employer] ID : [id number] [place], [place] ?Device: [id number] [employer] Maker ID: [id number] HCO3 (Bld) [Moles/Vol] 28.4 mmol/L High 21.0 - 25.0 mmol/L [facility] Interpretation and review of laboratory results Abnormal [facility] Oxygen (Bld) [Partial pressure] 71.5 mm[Hg] Low [facility] pH (Bld) 7.450 [pH] 7.350 - 7.450 pH [facility] Performed by: [facility], [address] [place] [id number] CLIA ID: [id number] [facility] Phosphate [Moles/Vol]on 01-16 Interpretation and review of laboratory results Normal [facility] Phosphate [Mass/Vol] 2.9 mg/dL 2.5 - 4 .5 mg/dL [facility] Vancomycin, randomon 023 Interpretation and review of laboratory results Abnormal [facility] Vancomycin [Mass/Vol] 24.0 ug/mL High 15.0 - 20.0 ug/mL [facility] C-reactive proteinon 023 CRP [Mass/Vol] 77.0 mg/L High NINF - 10.0 mg/L [facility] CBC W Auto Differential pane l (Bld)Ordered By: Kelly Cárdenas on 01-30-2023 Basophils (Bld) [#/Vol] 0.0 10*3/uL 0.0 - 0.2 10*3/uL [facility] Basophils/100 WBC (Bld) 0.3 % 0.0 - 2.0 % [facility] Eosinophils (Bld) [#/Vol] 0.0 10*3/uL 0.0 - 0.5 10*3/uL [facility] Eosinophils/100 WBC (Bld) 0.0 % Low 1.0 - 6.0 % [facility] Erythrocyte distribution width (RBC) [Ratio] 18.9 % High 11.5 - 14.5 % [facility] Hematocrit (Bld) [Volume fraction] 37.2 % Low 40.0 - 52.0 % [facility] Hemoglobin (Bld) [Mass/Vol] 12.0 g/dL Low 13.0 - 18.0 g/dL [facility] Interpretation and review of laboratory results Abnormal [facility] Lymphocytes (Bld) [#/Vol] 0.5 10*3/uL Low 1.0 - 4.3 10*3/uL [facility] Lymphocytes/100 WBC (Bld) 5.2 % Low 20.0 - 40.0 % [facility] MCH (RBC) [Entitic mass] 27.3 pg 26.0 - 34.0 pg [facility] MCHC (RBC) [Mass/Vol] 32.4 % 32.0 - 36.0 % [facility] MCV (RBC) [Entitic vol] 84.5 fL 80.0 - 98.0 fL [facility] Monocytes (Bld) [#/Vol] 0.2 10*3/uL 0.0 - 0.8 10*3/uL [facility] Monocytes/100 WBC (Bld) 2.3 % 2.0 - 10.0 % [facility] Neutrophils (Bld) [#/Vol] 9.6 10*3/uL High 1.8 - 7.0 10*3/uL [facility] Neutrophils/100 WBC (Bld) 92.2 % High 40.0 - 80.0 % [facility] Nucleated RBC/100 WBC (Bld) [Ratio] 0.2 % [facility] Platelet mean volume (Bld) [Entitic vol] 7.1 fL Low 7.4 - 12.4 fL [facility] Platelets (Bld) [#/Vol] 328 10*3/uL 140 - 440 10*3/uL [facility] RBC (Bld) [#/Vol] 4.40 10*6/uL 4.40 - 5.9 0 10*6/uL [facility] WBC (Bld) [#/Vol] 10.4 10*3/uL 3.6 - 10.7 10*3/uL [facility] CRP [Mass/Vol]on 01-30-2023 Interpretation and review of laboratory results Abnormal [facility] Comprehensive metabolic 1998 panelon 01-30-2023 Albumin [Mass/Vol] 3.3 g/dL Low 3.5 - 5.0 g/dL [facility] ALP [Catalytic activity/Vol] 138 U/L High 38 - 126 U/L [facility] ALT [Catalytic activity/Vol] 17 U/L 0 - 49 U/L [facility] Anion gap [Moles/Vol] 0 mmol/L Low 3 - 13 mmol/L [facility] AST [Catalytic activity/Vol] 39 U/L 15 - 46 U/L [facility] Bilirubin [Mass/Vol] 0.4 mg/dL 0.2 - 1 .3 mg/dL [facility] Calcium [Mass/Vol] 8.0 mg/dL Low 8.4 - 10. 4 mg/dL [facility] Chloride [Moles/Vol] 102 mmol/L 98 - 10 7 mmol/L [facility] CO2 [Moles/Vol] 31 mmol/L High 22 - 30 mmol/L [facility] Creatinine [Mass/Vol] 0.63 mg/dL Low 0.66 - 1.25 mg/dL [facility] GFR/1.73 sq M.predicted MDRD (S/P/Bld) [Vol rate/Area] - PINF [facility] Comment on above: Calculation based on the Chronic Kidney Disease Epidemiology Collaboration (CKD-EPI) equation refit without adjustment for race Glucose [Mass/Vol] 171 mg/dL High 70 - 100 mg/dL [facility] Potassium [Moles/Vol] 3.6 mmol/L 3.5 - 5.1 mmol/L [facility] Protein [Mass/Vol] 6.7 g/dL 6.3 - 8.2 g/dL [facility] Sodium [Moles/Vol] 133 mmol/L Low 135 - 145 mmol/L [facility] Urea nitrogen [Mass/Vol] 16 mg/dL 9 - 20 mg/dL [facility] ESR (Bld) [Velocity]on 01-30 Interpretation and review of laboratory results Abnormal [facility] Hepatitis 1996 panel (S)on HAV IgM IA Ql Not detected Not Detected [facility] ealt HBV core IgM IA Ql Not detected Not Detected [facility] HBV surface Ag IA Ql Not detected Not Detected [facility] HCV Ab IA Ql Not detected Not Detected [facility] Comment on above: Patients with DETECT ED Hepatitis C Ab results should have a new specimen submitted for supplemental testing with a Hepatitis C Quantitative RNA assay (viral load), if clinically indicated. Interpretation and review of laboratory results Normal [facility] LDH Lactate to pyruvate reac tion [Catalytic activity/Vol]on 01-30-2023 Interpretation and review of laboratory results Abnormal [facility] Lactate dehydrogenaseon 01-16 LDH Lactate to pyruvate reaction [Catalytic activity/Vol] 842 U/L High 120 - 246 U/L [facility] Legionella and Streptococcus Urine AntigenOrdered By: Jarad Hutchins on 01-30-2023 Interpretation and review of laboratory results Normal [facility] Legionella pneumophila Ag Not detected Not Detected [facility] Streptococcus pneumoniae Ag Not detected Not Detected [facility] Methodology: Lateral flow enzyme immunoassay This assay is approved for detection of antigens to Streptococcus pneumoniae and Legionella pneumophila serogroup 1; however, other L. pneumophila serogroups may also be detected. [facility] Light Green Topon 01-30-2023 Extra Tube Hold for add-ons. [facility] Comment on above: Auto resulted. [facility] Magnesiumon 01-30-2023 Magnesium [Mass/Vol] 2.5 mg/dL High 1.6 - 2 .3 mg/dL [facility] No Panel Informationon 01-30 [facility] Interpretation and review of laboratory results Abnormal [facility] Phosphate [Moles/Vol]on 01-16 Interpretation and review of laboratory results Normal [facility] Phosphate [Mass/Vol] 2.8 mg/dL 2.5 - 4 .5 mg/dL [facility] Procalcitonin Teston 023 Procalcitonin [Mass/Vol] 9.53 ng/mL High 0.00 - 0.09 ng/mL [facility] Procalcitonin [Mass/Vol]on Interpretation and review of laboratory results Abnormal [facility] PCT <0.50 = Low risk of severe sepsis and/or septic shock. PCT >2.00 = High risk of severe sepsis and/or septic shock. [facility] Respiratory pathogens DNA an d RNA panel CONNOR+non-probe (Lower resp)on 01-30-2023 Acinetobacter baumannii complex Not detected Not Detected [facility] Adenovirus Not detected Not Detected [facility] th Chlamydia pneumoniae Not detected Not Detected [facility] Enterobacter cloacae complex Not detected Not Detected [facility] Escherichia coli Not detected Not Detected [facility] FLUAV RNA CONNOR+non-probe Ql (Lower resp) Not detected Not Detected [facility] FLUBV RNA CONNOR+non-probe Ql (Lower resp) Not detected Not Detected [facility] Haemophilus influenzae Not detected Not Detecte d [facility] Human Metapneumovirus Not detected Not Detected [facility] Human Rhinovirus/Enterovirus Not detected Not Detected [facility] lt Interpretation and review of laboratory results Abnormal [facility] Klebsiella (Enterobacter) aerogenes Not detected Not Detected [facility] Klebsiella oxytoca Not detected Not Detected [facility] Klebsiella pneumoniae Not detected Not Detected [facility] Legionella pneumophila Not detected Not Detecte d [facility] Moraxella catarrhalis Detected Abnormal Not Detected [facility] Mycoplasma pneumoniae Not detected Not Detected [facility] Parainfluenza virus Not detected Not Detected [facility] Proteus spp Not detected Not Detected [facility] Pseudomonas aeruginosa Not detected Not Detecte d [facility] RSV RNA CONNOR+probe Ql (Resp) Not detected Not Detected [facility] S. agalactiae Org specific cx Ql (Vag fld) Not detected Not Detected [facility] SARS-CoV-2 (COVID-19) RNA CONNOR+non-probe Ql (Nph) Not detected Not Detected [facility] SARS-CoV-2 (COVID-19) RNA CONNOR+probe Ql (Unsp spec) Methodology: Multiplex PCR This panel does not test for SARS-CoV-2 (Covid-19). The following antimicrobial resistance gene is reported if the appropriate organism is detected: mecA. The following antimicrobial resistance genes are reported if detected and the appropriate organisms are detected: CTX-M, IMP, KPC, NDM, OXA-48-like, and VIM. [facility] Serratia marcescens Not detected Not Detected [facility] Staphylococcus aureus Not detected Not Detected [facility] Streptococcus pneumoniae Not detected Not Detected [facility] Streptococcus pyogenes Not detected Not Detecte d [facility] Respiratory pathogens DNA an d RNA panel CONNOR+non-probe (Nph)on 01-30-2023 Adenovirus Not detected Not Detected [facility] B. pertussis DNA CONNOR+probe Ql (Unsp spec) Not detected Not Detected [facility] Bordetella parapertussis Not detected Not Detected [facility] Chlamydia pneumoniae Not detected Not Detected [facility] Coronavirus 229E Not detected Not Detected [facility] Coronavirus HKU1 Not detected Not Detected [facility] Coronavirus NL63 Not detected Not Detected [facility] Coronavirus OC43 Not detected Not Detected [facility] FLUAV RNA CONNOR+non-probe Ql (Nph) Not detected Not Detected [facility] FLUBV RNA CONNOR+non-probe Ql (Nph) Not detected Not Detected [facility] Human Metapneumovirus Not detected Not Detected [facility] Human Rhinovirus/Enterovirus Not detected Not Detected [facility] Interpretation and review of laboratory results Normal [facility] Mycoplasma pneumoniae Not detected Not Detected [facility] Parainfluenza 1 Not detected Not Detected [facility] Parainfluenza 2 Not detected Not Detected [facility] Parainfluenza 3 Not detected Not Detected [facility] Parainfluenza 4 Not detected Not Detected [facility] Respiratory Syncytial Virus Not detected Not Detected [facility] SARS-CoV-2 (COVID-19) RNA CONNOR+non-probe Ql (Nph) Not detected Not Detected [facility] Methodology: Multiplex PCR [facility] Sedimentation rate, automate don 01-30-2023 ESR (Bld) [Velocity] 84 mm/h High [facility] Troponin Ion 01-30-2023 Troponin I.cardiac [Mass/Vol] ng/mL NINF - 0.034 ng/mL [facility] Troponin I.cardiac [Mass/Vol ]on 01-30-2023 Interpretation and review of laboratory results Normal [facility] Patients with high levels of Biotin oral intake (ie >5 mg/day) may have falsely decreased Troponin levels. [facility] US Heart TransthoracicOrdere d By: Steven Rodas on 01-30-2023 Ao Root Index 1.73 cm/m2 [facility] Work Phone: Aortic Root 3.6 cm [facility] Work Phone: [phone] Ascending Aorta 2.9 cm [facility] Work Phone: [phone] Ascending Aorta Index 1.39 cm/m2 [facility] [employer] Work Phone: [phone] Fractional Shortening 2D 29 % 28 - 44 % [facility] Work Phone: Interpretation and review of laboratory results Abnormal [facility] [employer] Work Phone: [phone] IVSd 1.2 cm Abnormal 0.6 - 1.0 cm [facility] Work Phone: [phone] LA Diameter 4.3 cm [facility] [employer] Work Phone: [phone] LA Size Index 2.07 cm/m2 [facility] Work Phone: [phone] LA/AO Root Ratio 1.19 [facility] Work Phone: LV Mass 2D 219.1 g 88 - 224 g [facility] [employer] Work Phone: [phone] LV Mass 2D Index 105.4 g/m2 49 - 115 g/m2 [facility] Work Phone: [phone] LV RWT Ratio 0.[address] [facility] Work Phone: [phone] LVIDd 4.8 cm 4.2 - 5.[address] [facility] Work Phone: [phone] LVIDd Index 2.31 cm/m2 [facility] Work Phone: [phone] LVIDs 3.[address] [facility] Work Phone: [phone] LVIDs Index 1.63 cm/m2 [facility] Work Phone: [phone] LVOT Area 3.[address] [facility] Work Phone: [phone] LVOT Diameter 2.2 cm [facility] [employer] Work Phone: [phone] LVPWd 1.2 cm Abnormal 0.6 - 1.0 cm [facility] Work Phone: [phone] [facility] [employer] Work Phone: [phone] Heart Transthoracicon Limited echo due to [...] on 01-30-2023 Amphetamines Ql (U) Negative Negative [facility] BARBITURATES Negative Negative [facility] Benzodiazepines Ql (U) Negative Negative [facility] Cocaine Ql (U) Negative Negative [facility] Methadone Ql (U) Positive Negative [facility] Opiates Ql (U) Negative Negative [facility] OXYCODONE/OXYMORPHONE Negative Negative [facility] PCP Negative Negative [facility] The expected value for the drugs listed [...] treatment only. Analysis performed using non-forensic procedures. [facility] XR Chest Single viewon 01-30 Worsening bibasilar consolidation. Report Dictated on Electronically Signed By: Estefani Jarquin DR Electronically Signed Date/Time: 01/30/2023 5:07 AM EDT [facility] Patient Name: EL SMITH : 1980 [...] . No displaced rib fractures. [facility] Estefani Jarquin MD - 01/30/2023 [facility] 1980 [id number] Exam Date/Time: 01/30/2023 05:16 Procedure: XR CHEST [...] Electronically Signed Date/Time: 01/30/2023 5:07 AM EDT [facility] Radiology Study observation (narrative) [facility] XR Chest Single viewOrdered By: Estefani Jarquin on 01-30-2023 [facility] [employer] Work Phone: Blood gas, venous (Benedict and Green)on 01-29-2023 BASE EXCESS 6.0 mmol/L High -3.0 - 3.0 mmol/L [facility] CO2 [Moles/Vol] 32.0 mmol/L High 24.0 - 28.0 mmol/L [facility] HCO3 (Bld) [Moles/Vol] 30.2 mmol/L High 23.0 - 27.0 mmol/L [facility] Interpretation and review of laboratory results Abnormal [facility] Oxygen (Bld) [Partial pressure] 38 mm[Hg] mm(Hg) [facility] Oxygen saturation in Blood 73.0 % 60.0 - 80.0 % [facility] pCO2 48 [facility] pH (Bld) 7.410 [pH] 7.310 - 7.410 [facility] CBC W Auto Differential pane l (Bld)Ordered By: Sonali Baldwin on 01-29-2023 Basophils (Bld) [#/Vol] 0.0 10*3/uL 0.0 - 0.2 10*3/uL [facility] Basophils/100 WBC (Bld) 0.1 % 0.0 - 2.0 % [facility] Eosinophils (Bld) [#/Vol] 0.1 10*3/uL 0.0 - 0.5 10*3/uL [facility] Eosinophils/100 WBC (Bld) 0.6 % Low 1.0 - 6.0 % [facility] Erythrocyte distribution width (RBC) [Ratio] 18.8 % High 11.5 - 14.5 % [facility] Hematocrit (Bld) [Volume fraction] 37.2 % Low 40.0 - 52.0 % [facility] Hemoglobin (Bld) [Mass/Vol] 12.1 g/dL Low 13.0 - 18.0 g/dL [facility] Interpretation and review of laboratory results Abnormal [facility] Lymphocytes (Bld) [#/Vol] 0.5 10*3/uL Low 1.0 - 4.3 10*3/uL [facility] Lymphocytes/100 WBC (Bld) 3.5 % Low 20.0 - 40.0 % [facility] MCH (RBC) [Entitic mass] 27.4 pg 26.0 - 34.0 pg [facility] MCHC (RBC) [Mass/Vol] 32.5 % 32.0 - 36.0 % [facility] MCV (RBC) [Entitic vol] 84.3 fL 80.0 - 98.0 fL [facility] Monocytes (Bld) [#/Vol] 0.2 10*3/uL 0.0 - 0.8 10*3/uL [facility] Monocytes/100 WBC (Bld) 1.6 % Low 2.0 - 10.0 % [facility] Neutrophils (Bld) [#/Vol] 13.6 10*3/uL High 1.8 - 7.0 10*3/uL [facility] Neutrophils/100 WBC (Bld) 94.2 % High 40.0 - 80.0 % [facility] Nucleated RBC/100 WBC (Bld) [Ratio] 0.1 % [facility] [employer] Platelet mean volume (Bld) [Entitic vol] 7.1 fL Low 7.4 - 12.4 fL [facility] Platelets (Bld) [#/Vol] 338 10*3/uL 140 - 440 10*3/uL [facility] RBC (Bld) [#/Vol] 4.42 10*6/uL 4.40 - 5.9 0 10*6/uL [facility] WBC (Bld) [#/Vol] 14.4 10*3/uL High 3.6 - 10.7 10*3/uL [facility] CBC W Auto Differential pane l (Bld)Ordered By: Frannie Manzanares on 01-29-2023 Basophils (Bld) [#/Vol] 0.1 10*3/uL 0.0 - 0.2 10*3/uL [facility] Basophils/100 WBC (Bld) 0.3 % 0.0 - 2.0 % [facility] Eosinophils (Bld) [#/Vol] 0.0 10*3/uL 0.0 - 0.5 10*3/uL [facility] Eosinophils/100 WBC (Bld) 0.1 % Low 1.0 - 6.0 % [facility] Erythrocyte distribution width (RBC) [Ratio] 17.7 % High 11.5 - 14.5 % [facility] Hematocrit (Bld) [Volume fraction] 41.1 % 40.0 - 52.0 % [facility] Hemoglobin (Bld) [Mass/Vol] 13.3 g/dL 13.0 - 18.0 g/dL [facility] Immature granulocytes (Bld) [#/Vol] 0.1 10*3/uL High NINF - 0.0 10*3/uL [facility] Immature granulocytes/100 WBC (Bld) 0.7 % High NINF - 0.0 % [facility] Interpretation and review of laboratory results Abnormal [facility] Lymphocytes (Bld) [#/Vol] 1.6 10*3/uL 1.0 - 4.3 10*3/uL [facility] Lymphocytes/100 WBC (Bld) 9.7 % Low 20.0 - 40.0 % [facility] MCH (RBC) [Entitic mass] 27.8 pg 26.0 - 34.0 pg [facility] MCHC (RBC) [Mass/Vol] 32.4 % 32.0 - 36.0 % [facility] MCV (RBC) [Entitic vol] 85.8 fL 80.0 - 98.0 fL [facility] Monocytes (Bld) [#/Vol] 0.5 10*3/uL 0.0 - 0.8 10*3/uL [facility] Monocytes/100 WBC (Bld) 3.2 % 2.0 - 10.0 % [facility] [employer] Neutrophils (Bld) [#/Vol] 14.4 10*3/uL High 1.8 - 7.0 10*3/uL [facility] [employer] Neutrophils/100 WBC (Bld) 86.0 % High 40.0 - 80.0 % [facility] [employer] Platelet mean volume (Bld) [Entitic vol] 9.5 fL 7.4 - 12.4 fL [facility] [employer] Comment on above: MPV is a calculated measurement using platelet volume ratio Platelets (Bld) [#/Vol] 338 10*3/uL 140 - 440 10*3/uL [facility] [employer] RBC (Bld) [#/Vol] 4.79 10*6/uL 4.40 - 5.9 0 10*6/uL [facility] [employer] WBC (Bld) [#/Vol] 16.7 10*3/uL High 3.6 - 10.7 10*3/uL [facility] [employer] [facility] CTA Chest vessels WO and Daniela linares [...] Electronically Signed Date/Time: 01/29/2023 8:39 PM EDT [facility] Radiology Study observation (narrative) [facility] CTA Chest vessels WO and W c ontrast IVOrdered By: Fe Finnegan on 01-29-2023 [facility] Work Phone: Comprehensive metabolic 1998 panelon 01-29-2023 Albumin [Mass/Vol] 3.6 g/dL 3.5 - 5.0 g/dL [facility] ALP [Catalytic activity/Vol] 138 U/L High 38 - 126 U/L [facility] ALT [Catalytic activity/Vol] 17 U/L 0 - 49 U/L [facility] Anion gap [Moles/Vol] 9 mmol/L 3 - 13 mmol/L [facility] AST [Catalytic activity/Vol] 46 U/L 15 - 46 U/L [facility] Bilirubin [Mass/Vol] 0.5 mg/dL 0.2 - 1 .3 mg/dL [facility] Calcium [Mass/Vol] 7.7 mg/dL Low 8.4 - 10. 4 mg/dL [facility] Chloride [Moles/Vol] 98 mmol/L 98 - 10 7 mmol/L [facility] CO2 [Moles/Vol] 26 mmol/L 22 - 30 mmol/L [facility] Creatinine [Mass/Vol] 0.63 mg/dL Low 0.66 - 1.25 mg/dL [facility] GFR/1.73 sq M.predicted MDRD (S/P/Bld) [Vol rate/Area] - [facility] Comment on above: Calculation based on the Chronic Kidney Disease Epidemiology Collaboration (CKD-EPI) equation refit without adjustment for race Glucose [Mass/Vol] 164 mg/dL High 70 - 100 mg/dL [facility] Interpretation and review of laboratory results Abnormal [facility] Potassium [Moles/Vol] 3.3 mmol/L Low 3.5 - 5.1 mmol/L [facility] Protein [Mass/Vol] 6.9 g/dL 6.3 - 8.2 g/dL [facility] Sodium [Moles/Vol] 134 mmol/L Low 135 - 145 mmol/L [facility] Urea nitrogen [Mass/Vol] 12 mg/dL 9 - 20 mg/dL [facility] Chemistry specimen i s slightly hemolyzed. Interpret results with caution. [facility] Albumin [Mass/Vol] 3.8 g/dL 3.5 - 5.0 g/dL [facility] ALP [Catalytic activity/Vol] 137 U/L High 38 - 126 U/L [facility] ALT [Catalytic activity/Vol] 21 U/L 0 - 49 U/L [facility] Anion gap [Moles/Vol] 13 mmol/L 3 - 13 mmol/L [facility] AST [Catalytic activity/Vol] 53 U/L High 15 - 46 U/L [facility] Bilirubin [Mass/Vol] 0.7 mg/dL 0.2 - 1 .3 mg/dL [facility] Calcium [Mass/Vol] 8.3 mg/dL Low 8.4 - 10. 4 mg/dL [facility] Chloride [Moles/Vol] 99 mmol/L 98 - 10 7 mmol/L [facility] CO2 [Moles/Vol] 28 mmol/L 22 - 30 mmol/L [facility] Creatinine [Mass/Vol] 0.68 mg/dL 0.66 - 1.25 mg/dL [facility] GFR/1.73 sq M.predicted MDRD (S/P/Bld) [Vol rate/Area] - [facility] Comment on above: Calculation based on the Chronic Kidney Disease Epidemiology Collaboration (CKD-EPI) equation refit without adjustment for race Glucose [Mass/Vol] 101 mg/dL High 70 - 100 mg/dL [facility] Interpretation and review of laboratory results Abnormal [facility] Potassium [Moles/Vol] 3.8 mmol/L 3.5 - 5.1 mmol/L [facility] Protein [Mass/Vol] 7.6 g/dL 6.3 - 8.2 g/dL [facility] Sodium [Moles/Vol] 139 mmol/L 135 - 145 mmol/L [facility] Urea nitrogen [Mass/Vol] 13 mg/dL 9 - 20 mg/dL [facility] Slight Hemolysis [facility] Ethanol (Bld) [Mass/Vol]on Ethanol [Mass/Vol] g/dL 0.000 - 0 .010 g/dL [facility] Comment on above: This sample may have [...] Interpretation and review of laboratory results Normal [facility] Lactic acid with reflexon Interpretation and review of laboratory results Normal [facility] Lactate [Moles/Vol] 1.5 mmol/L 0.7 - 2. 0 mmol/L [facility] Interpretation and review of laboratory results Abnormal [facility] Lactate [Moles/Vol] 3.6 mmol/L High 0.7 - 2. 0 mmol/L [facility] Natriuretic peptide B [Mass/ Vol]on 01-29-2023 Interpretation and review of laboratory results Abnormal [facility] Natriuretic peptide B (Bld) [Mass/Vol] 503 pg/mL High <20 - 100 [facility] No Panel Informationon 01-29 [facility] POCT arterial blood gason Base excess Calc (Bld) [Moles/Vol] 2.2 mmol/L -3.0 - 3.0 mmol/L [facility] CO2 (Bld) [Partial pressure] 42.5 mm[Hg] [facility] CO2 [Moles/Vol] 28.5 mmol/L High 23.0 - 27.0 mmol/L [facility] FIO2 60 [facility] Comment on above: Performed by CLIA ID : [id number] [facility], [place], [place] ?Device: [id number] [employer] Maker ID: [id number] HCO3 (Bld) [Moles/Vol] 27.2 mmol/L High 21.0 - 25.0 mmol/L [facility] Interpretation and review of laboratory results Abnormal [facility] Oxygen (Bld) [Partial pressure] 61.0 mm[Hg] Low [facility] pH (Bld) 7.414 [pH] 7.350 - 7.450 pH [facility] Performed by: [facility], [address] [place] [id number] CLIA ID: [id number] [facility] Rheumatoid factoron 01-30-20 23 Rheumatoid factor Qn 10 [IU]/mL [facility] Rheumatoid factor Qnon 01-29 Interpretation and review of laboratory results Normal [facility] SARS-CoV-2, Flu A/B, and RSV Comboon 01-29-2023 FLUAV RNA CONNOR+probe Ql (Resp) Not detected Not Detected [facility] FLUBV RNA CONNOR+probe Ql (Resp) Not detected Not Detected [facility] Interpretation and review of laboratory results Normal [facility] RSV RNA CONNOR+probe Ql (Resp) Not detected Not Detected [facility] SARS-CoV-2 (COVID-19) RNA CONNOR+probe Ql (Resp) Not detected Not Detected [facility] SARS-CoV-2 (COVID-19) RNA CONNOR+probe Ql (Unsp spec) Methodology: real-time, RT-PCR The SARS-CoV-2, Flu A/B, and RSV Combo assay is intended for in vitro diagnostic use under the FDA Emergency Use Authorization (EUA). This test has not been FDA cleared or approved. In compliance with this authorization, please visit www.fda.gov/media/078 784/download or www.fda.gov/media/689 999/download to access the applicable information sheets. [facility] Troponin - One Time order ON Short 01-29-2023 Troponin I.cardiac [Mass/Vol] ng/mL NINF - 0.034 ng/mL [facility] Troponin I.cardiac [Mass/Vol ]on 01-29-2023 Interpretation and review of laboratory results Normal [facility] Patients with high levels of Biotin oral intake (ie >5 mg/day) may have falsely decreased Troponin levels. [facility] Interpretation and review of laboratory results Normal [facility] Patients with high levels of Biotin oral intake (ie >5 mg/day) may have falsely decreased Troponin levels. [facility] Troponin, with Serial Reflex on 01-29-2023 Troponin I.cardiac [Mass/Vol] ng/mL NINF - 0.034 ng/mL [facility] XR Chest Single viewon 01-29 Pulmonary vascular [...] Cardiac monitoring wires and leads are present. [facility] Chela Cleaning MD - 01/29/2023 Patient [...] Electronically Signed Date/Time: 01/29/2023 7:01 PM EDT [facility] Radiology Study observation (narrative) Deandre Randolph alth XR Chest Single viewOrdered By: Chela Cleaning on 01-29-2023 [facility] Work Phone: XR Hand - right 3 [...] Electronically Signed Date/Time: 10/10/2022 4:58 PM EDT [facility] Radiology Study observation (narrative) Deandre tejeda XR Hand - right 3 ViewsOrder ed By: Fransisco Martin on 10-10-2022 [facility] Work Phone: BUPRENORPHINE SCREEN TO CONF IRM,URINEon 09-26-2022 BUPRENORPHINE SCREEN,INTERP. See Note Normal [facility] Comment on above: Result Comment: INTE RPRETIVE [...] not valid for forensic use. Performed By: [employer] [address] [place] [address] Transport Company Manager: Steven Yousif MD, PhD Performed By: #### B UPRS #### [address] [address] BUPRENORPHINE SCREEN,URINE Negative Normal [place] 5 [facility] Comment on above: Performed By: #### B UPRS #### [address] [address] GABAPENTIN,URINEon 3 GABAPENTIN,URINE >500.0 Normal [facility] Comment on above: Result Comment: INTE RPRETIVE [...] developed and its performance characteristics determined by [employer]. It has not been cleared or approved by the US Food and Drug Administration. This test was performed in a CLIA certified laboratory and is intended for clinical purposes. Performed By: [employer] [address] [place] [address] Transport Company Manager: Steven Yousif MD, PhD Performed By: #### G ABAU #### [employer] [address] [place] [address] T-SPOT TBon 09-24-2022 NIL[NEG]CONTROL SPOT COUNT Passed Normal [place]/Por [facility] Comment on above: Performed By: #### T SPOT #### [facility] [address] [place] [address] PANEL A SPOT COUNT 0 Normal [place] on/Por [facility] Comment on above: Performed By: #### T SPOT #### [facility] [address] [place] [address] PANEL B SPOT COUNT 0 Normal [place] on/Por [facility] Comment on above: Performed By: #### T SPOT #### [facility] [address] [place] [address] POS CONTROL SPOT COUNT Passed Normal [facility]/Por [facility] Comment on above: Performed By: #### T SPOT #### [facility] [address] [place] [address] T-SPOT.TB INTERP Negative Normal Normal Valu e: Negative [place]/Por [facility] Hospital Comment on above: Result Comment: A [...] T SPOT #### [facility] [address] [place] [address] ALCOHOLon 09-22-2022 Ethanol [Mass/Vol] mg/dL Normal [place] on/Por [facility] Comment on above: Result Comment: FOR MEDICAL USE ONLY. . REF VALUES <10 Performed By: #### A LC #### [place] [address] CBC AND DIFFERENTIALon 09-22 % AUTOMATED IMMATURE GRAN 1.2 % High 0.0 - 0.9 [facility] Comment on above: Result Comment: Ameena ture Granulocyte Count (IG) includes promyelocytes, myelocytes and metamyelocytes but does not include bands. Percent differential counts (%) should be interpreted in the context of the absolute cell counts (cells/L). Performed By: #### C BCDF #### [place] [address] Basophils (Bld) [#/Vol] 0.05 10*3/uL Normal 0.00 - 0.[address] [facility] Comment on above: Performed By: #### C BCDF #### [place] [address] Basophils/100 WBC (Bld) 0.7 % Normal 0.0 - 2.0 R [facility] Comment on above: Performed By: #### C BCDF #### [place] [address] Eosinophils (Bld) [#/Vol] 0.46 10*3/uL Normal 0.00 - 0.70 [facility] Comment on above: Performed By: #### C BCDF #### [place] [address] Eosinophils/100 WBC (Bld) 6.1 % Normal 0.0 - 6.0 [facility] Comment on above: Performed By: #### C BCDF #### [place] [address] Erythrocyte distribution width (RBC) [Ratio] 15.0 % High 11.5 - 14.5 [facility] Comment on above: Performed By: #### C BCDF #### [place] [address] Hematocrit (Bld) [Volume fraction] 38.4 % Low 41.0 - 52.0 [place]/Por [facility] Comment on above: Performed By: #### C BCDF #### [address] [address] Hemoglobin (Bld) [Mass/Vol] 12.8 g/dL Low 13.5 - 17.5 [place]/Por [facility] Comment on above: Performed By: #### C BCDF #### [address] [address] Lymphocytes (Bld) [#/Vol] 2.52 10*3/uL Normal 1.20 - 4.80 [place] Comment on above: Performed By: #### C BCDF #### [address] [address] Lymphocytes/100 WBC (Bld) 33.7 % Normal 13.0 - 44.0 [facility] Comment on above: Performed By: #### C BCDF #### [address] [address] MCHC (RBC) [Mass/Vol] 33.3 g/dL Normal 32.0 - 36.0 [place]/Por [facility] Comment on above: Performed By: #### C BCDF #### [address] [address] MCV (RBC) [Entitic vol] 92 fL Normal 80 - 100 R [facility] Comment on above: Performed By: #### C BCDF #### [address] [address] Monocytes (Bld) [#/Vol] 0.51 10*3/uL Normal 0.10 - 1.[address] [facility] Comment on above: Performed By: #### C BCDF #### [address] [address] Monocytes/100 WBC (Bld) 6.8 % Normal 2.0 - 10.0 R [place]/Por [facility] Comment on above: Performed By: #### C BCDF #### [address] [address] Neutrophils (Bld) [#/Vol] 3.85 10*3/uL Normal 1.20 - 7.70 [place] Comment on above: Performed By: #### C BCDF #### [address] [address] Neutrophils/100 WBC (Bld) 51.5 % Normal 40.0 - 80.0 [place] Comment on above: Performed By: #### C BCDF #### [address] [address] Platelets (Bld) [#/Vol] 544 10*3/uL High 150 - 450 [place] Comment on above: Performed By: #### C BCDF #### [address] [address] RBC 4.19 x10E12/L Low 4.50 - 5.90 [place]/ or [facility] Comment on above: Performed By: #### C BCDF #### [address] [address] WBC (Bld) [#/Vol] 7.5 10*3/uL Normal 4.4 - 11.3 [facility] Comment on above: Performed By: #### C BCDF #### [address] [address] COMPREHENSIVE PANELon 2022 Albumin [Mass/Vol] 3.0 g/dL Low 3.4 - 5.0 [facility]/Por [facility] Comment on above: Performed By: #### C MP #### [address] [address] ALP [Catalytic activity/Vol] 104 U/L Normal 33 - 120 [place] Comment on above: Performed By: #### C MP #### [address] [address] ALT [Catalytic activity/Vol] 14 U/L Normal 10 - 52 [place] Comment on above: Result Comment: Sveta ents treated with Sulfasalazine may generate falsely decreased results for ALT. Performed By: #### C MP #### [address] [address] Anion gap [Moles/Vol] 12 mmol/L Normal 10 - 20 [facility] Comment on above: Performed By: #### C MP #### [address] [address] AST [Catalytic activity/Vol] 19 U/L Normal 9 - 39 [place] Comment on above: Performed By: #### C MP #### [address] [address] Bilirubin [Mass/Vol] 0.3 mg/dL Normal 0.0 - 1.2 [facility] Comment on above: Performed By: #### C MP #### [address] [address] Calcium [Mass/Vol] 8.4 mg/dL Low 8.6 - 10.3 [place] onPor [facility] Comment on above: Performed By: #### C MP #### [address] [address] Chloride [Moles/Vol] 101 mmol/L Normal 98 - 107 [facility] Comment on above: Performed By: #### C MP #### [address] [address] Creatinine [Mass/Vol] 0.73 mg/dL Normal 0.50 - [facility].30 [facility] Comment on above: Performed By: #### C MP #### [address] [address] eGFR MALE >90 Normal >90 [facility] Comment on above: Result Comment: CALC ULATIONS OF ESTIMATED GFR ARE PERFORMED USING THE 2020 CKD-EPI STUDY REFIT EQUATION WITHOUT THE RACE VARIABLE FOR THE IDMS-TRACEABLE CREATININE METHODS. https://jasn.asnjournals.org/content/early/ASN.2020 118294 Performed By: #### C MP #### [address] [address] Glucose [Mass/Vol] 100 mg/dL High 74 - 99 [facility] Comment on above: Performed By: #### C MP #### [address] [address] HCO3 (Bld) [Moles/Vol] 30 mmol/L Normal 21 - 32 [place]/Por [facility] Comment on above: Performed By: #### C MP #### [address] [address] Potassium [Moles/Vol] 3.5 mmol/L Normal 3.5 - 5.3 [facility] Comment on above: Performed By: #### C MP #### [address] [address] Protein [Mass/Vol] 6.0 g/dL Low 6.4 - 8.2 [facility] Comment on above: Performed By: #### C MP #### [address] [address] Sodium [Moles/Vol] 139 mmol/L Normal 136 - 145 [facility] Comment on above: Performed By: #### C MP #### [address] [address] Urea nitrogen [Mass/Vol] 11 mg/dL Normal 6 - 23 [place] Comment on above: Performed By: #### C MP #### [address] [address] HEPATITIS PANEL,ACUTE (HCFA) on 09-22-2022 HEPATITIS A AB-IGM Non-Reactive Normal NONREACTIVE Mohit [facility] Comment on above: Result Comment: Biot in interference may cause falsely decreased results. Patients taking a Biotin dose of up to 5 mg/day should refrain from taking Biotin for 24 hours before sample collection. Providers may contact their local laboratory for further information. Performed By: #### H EPA2 #### [facility] [address] [place] [address] HEPATITIS B CORE AB,IGM Non-Reactive Normal NONREACTIV E [place]/Por [facility] Comment on above: Result Comment: Resu lts from patients taking biotin supplements or receiving high-dose biotin therapy should be interpreted with caution due to possible interference with this test. Providers may contact their local laboratory for further information. Performed By: #### H EPA2 #### [facility] [address] [place] [id number] HEPATITIS C AB Non-Reactive Normal NONREACTIVE [place]/[facility] Comment on above: Result Comment: Resu lts from patients taking biotin supplements or receiving high-dose biotin therapy should be interpreted with caution due to possible interference with this test. Providers may contact their local laboratory for further information. Performed By: #### H EPA2 #### [facility] [address] [place] [address] HEP.B SURFACE AG Non-Reactive Normal NONREACTIVE Robert [facility] Comment on above: Result Comment: Biot in interference may cause falsely decreased results. Patients taking a Biotin dose of up to 5 mg/day should refrain from taking Biotin for 24 hours before sample collection. Providers may contact their local laboratory for further information. Performed By: #### H EPA2 #### [facility] [address] [place] [id number] HIV 1/2 ANTIGEN/ANTIBODY SCR EEN WITH REFLEX TO CONFIRMATIONon 09-22-2022 HIV 1/2 AG/AB SCREEN Non-Reactive Normal NONREACTIVE R [facility]/[facility] Comment on above: Result Comment: HIV Ag/Ab screen is performed using the Siemens [employer] HIV Ag/Ab Combo assay which detects the presence of HIV p24 antigen as well as antibodies to HIV-1 (Group M and O) and HIV-2. . No laboratory evidence of HIV infection. If acute HIV infection is suspected, consider testing for HIV RNA by PCR (viral load). Performed By: #### H IV #### [facility] [address] [place] [address] Lab Specimen Source Normal [facility] Comment on above: Performed By: #### H IV #### [facility] [address] [place] [address] Performed By: #### H EPA2 #### [facility] [address] [place] [address] Performed By: #### S YPHR #### [facility] [address] [place] [address] SYPHILIS SCREENING WITH REFL EXon 09-22-2022 SYPHILIS TOTAL AB Non-Reactive Normal NONREACTIVE Jose G nson/Por [facility] Comment on above: Result Comment: No s erologic evidence of syphilis infection. If recent exposure is suspected, repeat syphilis testing is recommended in 2 to 4 weeks. Performed By: #### S YPHR #### [facility] [address] [place] [address] DRUG SCREEN,URINEon 09-22-19 AMPHETAMINE SCREEN,U Negative Normal NEGATIVE Jose G nson/Por [facility] Comment on above: Result Comment: CUTO FF LEVEL: 500 NG/ML Cross-reactivity has been reported with high concentrations of the following drugs: buproprion, chloroquine, chlorpromazine, ephedrine, mephentermine, fenfluramine, phentermine, phenylpropanolamine, pseudoephedrine, and propranolol. Performed By: #### D RUG3 #### [address] [address] BARBITURATES SCREEN,U Positive Abnormal NEGATIVE Mohit inson/Por [facility] Comment on above: Result Comment: CUTO FF LEVEL: 200 NG/ML Performed By: #### D RUG3 #### [address] [address] BENZODIAZEPINES SCREEN,U Negative Normal NEGATIVE [place]/Por [facility] Comment on above: Result Comment: CUTO FF LEVEL: 200 NG/ML Performed By: #### D RUG3 #### [address] [address] CANNABINOIDS SCREEN,U Positive Abnormal NEGATIVE Mohit inson/Por [facility] Comment on above: Result Comment: CUTO FF LEVEL: 50 NG/ML Performed By: #### D RUG3 #### [address] [address] COCAINE METABOLITE SCREEN,U Negative Normal NEGATIVE [place]/Por [facility] Comment on above: Result Comment: CUTO FF LEVEL: 150 NG/ML Performed By: #### D RUG3 #### [place] [address] DRUG SCREEN COMMENT SEE BELOW Normal Robert son/Por [facility] Comment on above: Result Comment: Drug screen results are presumptive and should not be used to assess compliance with prescribed medication. Contact the performing [facility] laboratory to add-on definitive confirmatory testing [...] directors. Performed By: #### D RUG3 #### [place] [address] FENTANYL SCREEN,URINE Negative Normal NEGATIVE Mohit inson/Por [facility] Comment on above: Result Comment: CUTO FF LEVEL: 5 NG/ML Performed By: #### D RUG3 #### [place] [address] METHADONE SCREEN,U Positive Abnormal NEGATIVE [place] on/Por [facility] Comment on above: Result Comment: CUTO FF LEVEL: 150 NG/ML The metabolite R-rtrih-symjnsnrvjmhie (LAAM) is not detected by this method in concentrations that would be found in the urine of patients on LAAM therapy. Performed By: #### D RUG3 #### [place] [address] OPIATES SCREEN,U Positive Abnormal NEGATIVE [place] /Por [facility] Comment on above: Result Comment: CUTO FF LEVEL: 300 NG/ML The opiate screen does not detect fentanyl, meperidine, or tramadol. Oxycodone is not consistently detected (refer to Oxycodone Screen, Urine result). Performed By: #### D RUG3 #### [place] [address] OXYCODONE SCREEN,U Negative Normal NEGATIVE [place] on/Por [facility] Comment on above: Result Comment: CUTO FF LEVEL: 100 NG/ML This test will accurately detect both oxycodone and oxymorphone. Performed By: #### D RUG3 #### [address] [address] PCP SCREEN,U Negative Normal NEGATIVE [place]/Por [facility] Comment on above: Result Comment: CUTO FF LEVEL: 25 NG/ML Cross-reactivity has been reported with dextromethorphan. Performed By: #### D RUG3 #### [address] [address] CBC W Auto Differential pane l (Bld)Ordered By: Erlin Quintana on 09-19-2022 Basophils (Bld) [#/Vol] 0.0 10*3/uL 0.0 - 0.2 10*3/uL [employer] [facility] Basophils/100 WBC (Bld) 0.6 % 0.0 - 2.0 % [employer] [facility] Eosinophils (Bld) [#/Vol] 0.0 10*3/uL 0.0 - 0.5 10*3/uL [employer] [facility] Eosinophils/100 WBC (Bld) 0.1 % Low 1.0 - 6.0 % [employer] [facility] Erythrocyte distribution width (RBC) [Ratio] 16.7 % High 11.5 - 14.5 % [employer] [facility] Hematocrit (Bld) [Volume fraction] 34.0 % Low 40.0 - 52.0 % [employer] [facility] Hemoglobin (Bld) [Mass/Vol] 11.4 g/dL Low 13.0 - 18.0 g/dL [facility] Interpretation and review of laboratory results Abnormal [employer] [facility] Lymphocytes (Bld) [#/Vol] 0.8 10*3/uL Low 1.0 - 4.3 10*3/uL [employer] [facility] Lymphocytes/100 WBC (Bld) 10.9 % Low 20.0 - 40.0 % [employer] [facility] MCH (RBC) [Entitic mass] 30.5 pg 26.0 - 34.0 pg [employer] [facility] MCHC (RBC) [Mass/Vol] 33.4 % 32.0 - 36.0 % [employer] [facility] MCV (RBC) [Entitic vol] 91.2 fL 80.0 - 98.0 fL [facility] Monocytes (Bld) [#/Vol] 0.1 10*3/uL 0.0 - 0.8 10*3/uL [facility] Monocytes/100 WBC (Bld) 1.8 % Low 2.0 - 10.0 % [facility] Neutrophils (Bld) [#/Vol] 6.1 10*3/uL 1.8 - 7.0 10*3/uL [facility] Neutrophils/100 WBC (Bld) 86.6 % High 40.0 - 80.0 % [facility] Nucleated RBC/100 WBC (Bld) [Ratio] 0.0 % [facility] Platelet mean volume (Bld) [Entitic vol] 7.2 fL Low 7.4 - 12.4 fL [facility] Platelets (Bld) [#/Vol] 413 10*3/uL 140 - 440 10*3/uL [facility] RBC (Bld) [#/Vol] 3.73 10*6/uL Low 4.40 - 5.9 0 10*6/uL [facility] WBC (Bld) [#/Vol] 7.1 10*3/uL 3.6 - 10.7 10*3/uL [facility] Comprehensive metabolic 1998 panelon 09-19-2022 Albumin [Mass/Vol] 2.4 g/dL Low 3.5 - 5.0 g/dL [facility] ALP [Catalytic activity/Vol] 108 U/L 38 - 126 U/L [facility] ALT [Catalytic activity/Vol] 13 U/L 0 - 49 U/L [facility] Anion gap [Moles/Vol] 3 mmol/L 3 - 13 mmol/L [facility] AST [Catalytic activity/Vol] 25 U/L 15 - 46 U/L [facility] Bilirubin [Mass/Vol] 0.3 mg/dL 0.2 - 1 .3 mg/dL [facility] Calcium [Mass/Vol] 6.3 mg/dL Low 8.4 - 10. 4 mg/dL [facility] Chloride [Moles/Vol] 109 mmol/L High 98 - 10 7 mmol/L [facility] CO2 [Moles/Vol] 24 mmol/L 22 - 30 mmol/L [facility] Creatinine [Mass/Vol] 0.40 mg/dL Low 0.66 - 1.25 mg/dL [facility] GFR/1.73 sq M.predicted MDRD (S/P/Bld) [Vol rate/Area] - PINF [facility] Comment on above: Calculation based on the Chronic Kidney Disease Epidemiology Collaboration (CKD-EPI) equation refit without adjustment for race Glucose [Mass/Vol] 144 mg/dL High 70 - 100 mg/dL [facility] Interpretation and review of laboratory results Abnormal [facility] Potassium [Moles/Vol] 2.8 mmol/L Low 3.5 - 5.1 mmol/L [facility] Protein [Mass/Vol] 4.9 g/dL Low 6.3 - 8.2 g/dL [facility] Sodium [Moles/Vol] 136 mmol/L 135 - 145 mmol/L [facility] Urea nitrogen [Mass/Vol] 15 mg/dL 9 - 20 mg/dL [facility] Laboratory - Chemistry and C hemistry - challengeon 09-19-2022 Magnesium [Mass/Vol] 1.7 mg/dL 1.6 - 2 .3 mg/dL [facility] MRSA DNA CONNOR+probe Ql (Nose) on 09-19-2022 Interpretation and review of laboratory results Normal [facility] mecA gene Not detected Not Detected [facility] Staphylococcus aureus Not detected Not Detected [facility] No Staphylococcus aureus detected. Negative nasal MRSA PCR has a high negative predictive value for MRSA pneumonia. Consider stopping Vancomycin if no other clinical indication. Contact Antimicrobial Stewardship for further recommendations. Staphylococcus aureus nasal screen by real-time PCR. This test was modified and its performance characteristics determined by [facility] System Microbiology Service. The U. S. Food and Drug Administration has not approved or cleared this test; however, FDA clearance or approval is not currently required for clinical use. The results are not intended to be used as the sole means for clinical diagnosis or patient management decisions. [facility] Magnesium [Mass/Vol]on 09-19 Interpretation and review of laboratory results Normal [facility] No Panel InformationOrdered By: Sharmin Saunders on 09-19-2022 Interpretation and review of laboratory results Normal [facility] Legionella pneumophila Ag Not detected Not Detected [facility] Streptococcus pneumoniae Ag Not detected Not Detected [facility] Methodology: Lateral flow enzyme immunoassay This assay is approved for detection of antigens to Streptococcus pneumoniae and Legionella pneumophila serogroup 1; however, other L. pneumophila serogroups may also be detected. [facility] No Panel InformationOrdered By: Giovani Collado on 09-19-2022 P [place] 39 degrees [facility] Work Phone: PA Interval 148 ms [facility] Work Phone: QRS [place] [address] [facility] Work Phone: QRSD Interval 110 ms [facility] Work Phone: QT Interval 388 ms [facility] Work Phone: QTC Interval 483 ms [facility] Work Phone: T Wave [place] 73 degrees [facility] Work Phone: [facility] Work Phone: No Panel Informationon 09-19 SINUS RHYTHM NONSPECIFIC INTRAVENTRICULAR CONDUCTION DELAY PROBABLE LEFT VENTRICULAR HYPERTROPHY Compared to ECG 09/16/2022 10:21:04 Electronically Signed On 09-19-2022 0:13:30 EDT by Giovani Collado Giovani White MD - 09/19/2022 IMPRESSION: SINUS RHYTHM NONSPECIFIC INTRAVENTRICULAR CONDUCTION DELAY PROBABLE LEFT VENTRICULAR HYPERTROPHY Compared to ECG 09/16/2022 10:21:04 Electronically Signed On 09-19-2022 0:13:30 EDT by Giovani Collado [facility] Respiratory pathogens DNA an d RNA panel CONNOR+probe (Nph)on 09-19-2022 Adenovirus Not detected Not Detected [facility] B. pertussis DNA CONNOR+probe Ql (Unsp spec) Not detected Not Detected [facility] Bordetella parapertussis Not detected Not Detected [facility] Chlamydia pneumoniae Not detected Not Detected [facility] Coronavirus 229E Not detected Not Detected [facility] Coronavirus HKU1 Not detected Not Detected [facility] Coronavirus NL63 Not detected Not Detected [facility] Coronavirus OC43 Not detected Not Detected [facility] FLUAV RNA CONNOR+non-probe Ql (Nph) Not detected Not Detected [facility] FLUBV RNA CONNOR+non-probe Ql (Nph) Not detected Not Detected [facility] Human Metapneumovirus Not detected Not Detected [facility] Human Rhinovirus/Enterovirus Not detected Not Detected [facility] Interpretation and review of laboratory results Normal [facility] Mycoplasma pneumoniae Not detected Not Detected [facility] Parainfluenza 1 Not detected Not Detected [facility] Parainfluenza 2 Not detected Not Detected [facility] Parainfluenza 3 Not detected Not Detected [facility] Parainfluenza 4 Not detected Not Detected [facility] Respiratory Syncytial Virus Not detected Not Detected [facility] SARS-CoV-2 (COVID-19) RNA CONNOR+non-probe Ql (Nph) Not detected Not Detected [facility] Methodology: Multiplex PCR [facility] Vital signsOrdered By: Giovani Collado on 09-19-2022 Heart rate 93 /min bpm [facility] Work Phone: CBC W Auto Differential pane l (Bld)Ordered By: Iraida Coon on 09-18-2022 Basophils (Bld) [#/Vol] 0.2 10*3/uL 0.0 - 0.2 10*3/uL [facility] Basophils/100 WBC (Bld) 1.7 % 0.0 - 2.0 % [facility] Eosinophils (Bld) [#/Vol] 0.1 10*3/uL 0.0 - 0.5 10*3/uL [facility] Eosinophils/100 WBC (Bld) 1.1 % 1.0 - 6.0 % [facility] Erythrocyte distribution width (RBC) [Ratio] 15.8 % High 11.5 - 14.5 % [facility] Hematocrit (Bld) [Volume fraction] 37.3 % Low 40.0 - 52.0 % [facility] Hemoglobin (Bld) [Mass/Vol] 12.5 g/dL Low 13.0 - 18.0 g/dL [facility] Interpretation and review of laboratory results Abnormal [facility] Lymphocytes (Bld) [#/Vol] 2.6 10*3/uL 1.0 - 4.3 10*3/uL [facility] Lymphocytes/100 WBC (Bld) 23.1 % 20.0 - 40.0 % [facility] MCH (RBC) [Entitic mass] 30.2 pg 26.0 - 34.0 pg [facility] MCHC (RBC) [Mass/Vol] 33.7 % 32.0 - 36.0 % [facility] MCV (RBC) [Entitic vol] 89.8 fL 80.0 - 98.0 fL [facility] Monocytes (Bld) [#/Vol] 0.6 10*3/uL 0.0 - 0.8 10*3/uL [facility] Monocytes/100 WBC (Bld) 5.1 % 2.0 - 10.0 % [facility] Neutrophils (Bld) [#/Vol] 7.6 10*3/uL High 1.8 - 7.0 10*3/uL [facility] Neutrophils/100 WBC (Bld) 69.0 % 40.0 - 80.0 % [facility] Nucleated RBC/100 WBC (Bld) [Ratio] 0.0 % [facility] Platelet mean volume (Bld) [Entitic vol] 6.9 fL Low 7.4 - 12.4 fL [facility] Platelets (Bld) [#/Vol] 500 10*3/uL High 140 - 440 10*3/uL [facility] RBC (Bld) [#/Vol] 4.15 10*6/uL Low 4.40 - 5.9 0 10*6/uL [facility] WBC (Bld) [#/Vol] 11.1 10*3/uL High 3.6 - 10.7 10*3/uL [facility] COVID-19, Flu A/B, and RSV C omboon 09-18-2022 Interpretation and review of laboratory results Normal [facility] Comprehensive metabolic 1998 panelon 09-18-2022 Albumin [Mass/Vol] 3.5 g/dL 3.5 - 5.0 g/dL [facility] ALP [Catalytic activity/Vol] 154 U/L High 38 - 126 U/L [facility] ALT [Catalytic activity/Vol] 21 U/L 0 - 49 U/L [facility] Anion gap [Moles/Vol] 8 mmol/L 3 - 13 mmol/L [facility] AST [Catalytic activity/Vol] 56 U/L High 15 - 46 U/L [facility] Bilirubin [Mass/Vol] 0.5 mg/dL 0.2 - 1 .3 mg/dL [facility] Calcium [Mass/Vol] 8.2 mg/dL Low 8.4 - 10. 4 mg/dL [facility] Chloride [Moles/Vol] 101 mmol/L 98 - 10 7 mmol/L [facility] CO2 [Moles/Vol] 28 mmol/L 22 - 30 mmol/L [facility] Creatinine [Mass/Vol] 0.71 mg/dL 0.66 - 1.25 mg/dL [facility] GFR/1.73 sq M.predicted MDRD (S/P/Bld) [Vol rate/Area] - PINF [facility] Comment on above: Calculation based on the Chronic Kidney Disease Epidemiology Collaboration (CKD-EPI) equation refit without adjustment for race Glucose [Mass/Vol] 83 mg/dL 70 - 100 mg/dL [facility] Interpretation and review of laboratory results Abnormal [facility] Potassium [Moles/Vol] 3.1 mmol/L Low 3.5 - 5.1 mmol/L [facility] Protein [Mass/Vol] 6.9 g/dL 6.3 - 8.2 g/dL [facility] Sodium [Moles/Vol] 136 mmol/L 135 - 145 mmol/L [facility] Urea nitrogen [Mass/Vol] 18 mg/dL 9 - 20 mg/dL [facility] Ethanol (Bld) [Mass/Vol]on 0 09-18-2022 Ethanol [Mass/Vol] 0.010 g/dL 0.000 - 0 .010 g/dL [facility] Laboratory - Chemistry and C hemistry - challengeon 09-18-2022 Glucose [Mass/Vol] 184 mg/dL High 70 - 100 mg/dL [facility] Troponin I.cardiac [Mass/Vol] ng/mL 0.000 - 0.034 ng/mL [facility] Troponin I.cardiac [Mass/Vol] ng/mL 0.000 - 0.034 ng/mL [facility] CK [Catalytic activity/Vol] 103 U/L 30 - 170 U/L [facility] Base excess Calc (BldV) [Moles/Vol] 2.9 mmol/L -3 - 3 mmol/L [facility] CO2 (BldV) [Partial pressure] 41.8 mm[Hg] [facility] CO2 [Moles/Vol] 29.1 mmol/L High 24.0 - 28.0 mmol/L [facility] Comment on above: Performed by CLIA ID : [id number] [place], [place] ?Device: [id number] [employer] Maker ID: [id number] HCO3 (Bld) [Moles/Vol] 27.8 mmol/L High 23.0 - 27.0 mmol/L [facility] Oxygen (BldV) [Partial pressure] 45.3 mm[Hg] [facility] pH (BldV) 7.431 [pH] High 7.330 - 7.430 pH [facility] Laboratory - Drug toxicology Ordered By: Frannie Amezcua on 09-18-2022 Amphetamines Screen method >1000 ng/mL Ql (U) Negative [facility] Barbiturates Screen method >200 ng/mL Ql (U) Positive [facility] Benzodiazepines Ql (U) Negative [facility] Methadone Screen Ql (U) Positive [facility] Opiates Screen Ql (U) Negative [facility] oxyCODONE Ql (U) Negative [facility] Phencyclidine Ql (U) Negative [facility] Laboratory - Microbiology an d Antimicrobial susceptibilityon 09-18-2022 FLUAV RNA CONNOR+probe Ql (Resp) Not detected Not Detected [facility] FLUBV RNA CONNOR+probe Ql (Resp) Not detected Not Detected [facility] RSV RNA CONNOR+probe Ql (Resp) Not detected Not Detected [facility] SARS-CoV-2 (COVID-19) RNA CONNOR+probe Ql (Resp) Not detected Not Detected [facility] SARS-CoV-2 (COVID-19) RNA CONNOR+probe Ql (Unsp spec) Methodology: real-time, RT-PCR The SARS-CoV-2, Flu A/B, and RSV Combo assay is intended for in vitro diagnostic use under the FDA Emergency Use Authorization (EUA). This test has not been FDA cleared or approved. In compliance with this authorization, please visit www.fda.gov/media/142 435/download or www.fda.gov/media/142 436/download to access the applicable information sheets. [facility] No Panel Informationon 09-18 Interpretation and review of laboratory results Abnormal [facility], [address] [place] [id number] CLIA ID: [id number] [facility] Interpretation and review of laboratory results Normal [facility] FIO2 [facility] Interpretation and review of laboratory results Abnormal [facility]formed [facility]: [facility], [address] [facility] [address] CLIA ID: [id number] [facility] No Panel InformationOrdered By: Frannie Amezcua on 09-18-2022 COCAINE METAB. SCREEN Negative [facility] The expected value for all of [...] is needed, request confirmation under separate order. [facility] Troponin I.cardiac [Mass/Vol ]on 09-18-2022 Interpretation and review of laboratory results Normal [facility] Patients with high levels of Biotin oral intake (ie >5 mg/day) may have falsely decreased Troponin levels. [facility] Interpretation and review of laboratory results Normal [facility] Patients with high levels of Biotin oral intake (ie >5 mg/day) may have falsely decreased Troponin levels. [facility] Urinalysis complete panel (U )on 09-18-2022 Bacteria LM.HPF (Urine sed) [#/Area] Few Abnormal Negative /HPF [facility] Bilirubin Ql (U) Negative Negative mg/dL [facility] Clarity (U) Clear Clear [facility] Color (U) Yellow Lt. Yellow [facility] Epithelial cells.squamous LM.HPF (Urine sed) [#/Area] 0-2 [facility] h Glucose Ql (U) Normal Normal (<70) mg/dL [facility] Hemoglobin Ql (U) Negative Negative mg/dL [facility] Hyaline casts Auto (Urine sed) [#/Area] 0-2 Abnormal [facility] Interpretation and review of laboratory results Abnormal [facility] Ketones (U) [Mass/Vol] Negative Negat christiano mg/dL [facility] Leukocyte esterase Test strip Ql (U) 25 Abnormal Negative Soren/uL [facility] Mucus LM.HPF (Urine sed) [#/Area] Many Abnormal Negative /LPF [facility] Nitrite Ql (U) Negative Negative [facility] th pH (U) 6.5 [pH] 5.0 - 8.0 pH [facility] Protein (U) [Mass/Vol] 70 mg/dL Abnormal Negative [facility] RBC LM.HPF (Urine sed) [#/Area] 0-2 [facility] Specific gravity (U) [Rel density] 1.027 1.005 - 1.030 [facility] Urobilinogen (U) [Mass/Vol] Normal Normal (0-1) mg/dL [facility] WBC LM.HPF (Urine sed) [#/Area] 3-5 [facility] Vital signson 09-18-2022 Oxygen saturation in Venous blood 82.1 % High 60.0 - 80.0 % [facility] XR Chest Single viewon 09-18 1. Bilateral perihilar interstitial opacities or infiltrate(s), which may represent acute inflammatory process, slightly decreased in the interval. Follow-up to resolution advised. Report Dictated on Electronically Signed By: Tk Trinh Electronically Signed Date/Time: 09/18/2022 3:20 PM EDT [facility] Patient Name: EL SMITH : [...] No apparent pneumothorax. Bony thorax grossly unremarkable. [facility] Tk Trinh MD - 09/18/2022 Patient [...] Electronically Signed Date/Time: 09/18/2022 3:20 PM EDT [facility] Radiology Study observation (narrative) [facility] XR Chest Single viewOrdered By: Tk Trinh on 09-18-2022 [facility] Work Phone: Basic metabolic 1998 panelon 09-16-2022 Anion gap [Moles/Vol] 6 mmol/L 3 - 13 mmol/L [facility] Calcium [Mass/Vol] 8.3 mg/dL Low 8.4 - 10. 4 mg/dL [facility] Chloride [Moles/Vol] 99 mmol/L 98 - 10 7 mmol/L [facility] CO2 [Moles/Vol] 33 mmol/L High 22 - 30 mmol/L [facility] Creatinine [Mass/Vol] 0.63 mg/dL Low 0.66 - 1.25 mg/dL [facility] GFR/1.73 sq M.predicted MDRD (S/P/Bld) [Vol rate/Area] - PINF [facility] Comment on above: Calculation based on the Chronic Kidney Disease Epidemiology Collaboration (CKD-EPI) equation refit without adjustment for race Glucose [Mass/Vol] 110 mg/dL High 70 - 100 mg/dL [facility] Interpretation and review of laboratory results Abnormal [facility] Potassium [Moles/Vol] 2.9 mmol/L Low 3.5 - 5.1 mmol/L [facility] Sodium [Moles/Vol] 138 mmol/L 135 - 145 mmol/L [facility] Urea nitrogen [Mass/Vol] 9 mg/dL 9 - 20 mg/dL [facility] CBC W Auto Differential pane l (Bld)Ordered By: Monica Kumar on 09-16-2022 Basophils (Bld) [#/Vol] 0.1 10*3/uL 0.0 - 0.2 10*3/uL [facility] Basophils/100 WBC (Bld) 0.5 % 0.0 - 2.0 % [facility] Eosinophils (Bld) [#/Vol] 0.1 10*3/uL 0.0 - 0.5 10*3/uL [facility] Eosinophils/100 WBC (Bld) 0.4 % Low 1.0 - 6.0 % [facility] Erythrocyte distribution width (RBC) [Ratio] 15.0 % High 11.5 - 14.5 % [facility] Hematocrit (Bld) [Volume fraction] 37.8 % Low 40.0 - 52.0 % [facility] Hemoglobin (Bld) [Mass/Vol] 13.0 g/dL 13.0 - 18.0 g/dL [facility] Immature granulocytes (Bld) [#/Vol] 0.1 10*3/uL High NINF - 0.0 10*3/uL [facility] Immature granulocytes/100 WBC (Bld) 0.6 % High NINF - 0.0 % [facility] Interpretation and review of laboratory results Abnormal [facility] Lymphocytes (Bld) [#/Vol] 1.4 10*3/uL 1.0 - 4.3 10*3/uL [facility] Lymphocytes/100 WBC (Bld) 10.5 % Low 20.0 - 40.0 % [facility] MCH (RBC) [Entitic mass] 30.4 pg 26.0 - 34.0 pg [facility] MCHC (RBC) [Mass/Vol] 34.4 % 32.0 - 36.0 % [facility] MCV (RBC) [Entitic vol] 88.5 fL 80.0 - 98.0 fL [facility] Monocytes (Bld) [#/Vol] 0.7 10*3/uL 0.0 - 0.8 10*3/uL [facility] Monocytes/100 WBC (Bld) 5.4 % 2.0 - 10.0 % [facility] Neutrophils (Bld) [#/Vol] 10.9 10*3/uL High 1.8 - 7.0 10*3/uL [facility] Neutrophils/100 WBC (Bld) 82.6 % High 40.0 - 80.0 % [facility] Platelet mean volume (Bld) [Entitic vol] 8.8 fL 7.4 - 12.4 fL [facility] Comment on above: MPV is a calculated measurement using platelet volume ratio Platelets (Bld) [#/Vol] 434 10*3/uL 140 - 440 10*3/uL [facility] RBC (Bld) [#/Vol] 4.27 10*6/uL Low 4.40 - 5.9 0 10*6/uL [facility] WBC (Bld) [#/Vol] 13.1 10*3/uL High 3.6 - 10.7 10*3/uL [facility] Ethanol (Bld) [Mass/Vol]on 0 09-16-2022 Ethanol [Mass/Vol] 0.057 g/dL High 0.000 - 0 .010 g/dL [facility] Interpretation and review of laboratory results Abnormal [facility] Laboratory - Chemistry and C hemistry - challengeon 09-16-2022 Troponin I.cardiac [Mass/Vol] ng/mL 0.000 - 0.034 ng/mL [facility] Lactate [Moles/Vol] 1.3 mmol/L 0.7 - 2. 0 mmol/L [facility] Troponin I.cardiac [Mass/Vol] ng/mL 0.000 - 0.034 ng/mL [facility] No Panel Informationon 09-16 Interpretation and review of laboratory results Normal [facility] P [place] 29 degrees [facility] PA Interval 132 ms [facility] QRS [place] 19 degrees [facility] QRSD Interval 111 ms [facility] QT Interval 405 ms [facility] QTC Interval 499 ms [facility] T Wave [place] 49 degrees [facility] Sinus rhythm Borderline prolonged QT interval Compared to ECG 08/26/2022 09:55:15 Grossly unchanged Electronically Signed On 09-16-2022 3:00:38 EDT by Prince Macias D O - 09/16/2022 IMPRESSION: Sinus rhythm Borderline prolonged QT interval Compared to ECG 08/26/2022 09:55:15 Grossly unchanged Electronically Signed On 09-16-2022 3:00:38 EDT by Prince Alfaro [facility] Troponin I.cardiac [Mass/Vol ]on 09-16-2022 Interpretation and review of laboratory results Normal [facility] Patients with high levels of Biotin oral intake (ie >5 mg/day) may have falsely decreased Troponin levels. [facility] Interpretation and review of laboratory results Normal [facility] Patients with high levels of Biotin oral intake (ie >5 mg/day) may have falsely decreased Troponin levels. [facility] Vital signson 09-16-2022 Heart rate 91 /min bpm [facility] XR Chest Single viewon 09-16 1. Lines/ tubes/ devices: None. 2. Lungs and Pleura: Bilateral parahilar interstitial infiltrates are identified. The vascular pedicle is not widened. No pneumothorax or pleural effusion. 3. Heart and mediastinum: Normal cardiomediastinal margin. 4. Bones: Normal osseous structures. Report Dictated on Electronically Signed By: Naial Dallas Electronically Signed Date/Time: 09/16/2022 1:30 AM EDT [facility] 1980 [id number] Exam Date/Time: 09/16/2022 01:20 Procedure: XR CHEST 1 VIEW Ordering Provider: ALFARO DUSTIN Reason For Exam: CHEST PAIN PORTABLE CHEST CLINICAL INDICATION: Chest pain. COMPARISON: 07/28/2022. TECHNIQUE: A single frontal view of thorax was obtained and reviewed. [facility] Naila Dallas DO - 09/16/2022 Patient [...] Electronically Signed Date/Time: 09/16/2022 1:30 AM EDT [employer] Radiology Study observation (narrative) Orate XR Chest Single viewOrdered By: Naila Dallas on 09-16-2022 [employer] Work Phone: No Panel InformationOrdered By: Renato Vasques on 08-27-2022 P [place] 41 degrees [employer] Work Phone: PA Interval 134 ms [facility] Work Phone: QRS [place] 37 degrees [employer] Work Phone: QRSD Interval 118 ms [employer] Work Phone: QT Interval 470 ms [employer] Work Phone: QTC Interval 503 ms [employer] Work Phone: T Wave [place] 46 degrees [employer] Work Phone: [employer] [facility] Work Phone: No Panel Informationon 08-27 Sinus rhythm Normal [place] Inferior infarct, old Electronically Signed On 08-27-2022 4:30:21 EDT by Renato Vasques CV Renato Gerard MD - 08/27/2022 IMPRESSION: Sinus rhythm Normal [place] Inferior infarct, old Electronically Signed On 08-27-2022 4:30:21 EDT by Renato Vasques [facility] Vital signsOrdered By: Renato Vasques on 08-27-2022 Heart rate 69 /min bpm [employer] Work Phone: CBC W Auto Differential pane l (Bld)on 08-26-2022 Basophils (Bld) [#/Vol] 0.1 10*3/uL 0.0 - 0.2 10*3/uL [facility] Basophils/100 WBC (Bld) 1.0 % 0.0 - 2.0 % [employer] Eosinophils (Bld) [#/Vol] 0.2 10*3/uL 0.0 - 0.5 10*3/uL [facility] Eosinophils/100 WBC (Bld) 1.5 % 1.0 - 6.0 % [facility] Erythrocyte distribution width (RBC) [Ratio] 16.7 % High 11.5 - 14.5 % [facility] Hematocrit (Bld) [Volume fraction] 45.6 % 40.0 - 52.0 % [facility] Hemoglobin (Bld) [Mass/Vol] 15.0 g/dL 13.0 - 18.0 g/dL [facility] Immature granulocytes (Bld) [#/Vol] 0.1 10*3/uL High NINF - 0.0 10*3/uL [facility] Immature granulocytes/100 WBC (Bld) 0.4 % High NINF - 0.0 % [facility] Interpretation and review of laboratory results Abnormal [facility] Lymphocytes (Bld) [#/Vol] 2.1 10*3/uL 1.0 - 4.3 10*3/uL [facility] Lymphocytes/100 WBC (Bld) 17.6 % Low 20.0 - 40.0 % [facility] MCH (RBC) [Entitic mass] 29.8 pg 26.0 - 34.0 pg [facility] MCHC (RBC) [Mass/Vol] 32.9 % 32.0 - 36.0 % [facility] MCV (RBC) [Entitic vol] 90.5 fL 80.0 - 98.0 fL [facility] Monocytes (Bld) [#/Vol] 0.9 10*3/uL High 0.0 - 0.8 10*3/uL [facility] Monocytes/100 WBC (Bld) 7.0 % 2.0 - 10.0 % [facility] Neutrophils (Bld) [#/Vol] 8.8 10*3/uL High 1.8 - 7.0 10*3/uL [facility] Neutrophils/100 WBC (Bld) 72.5 % 40.0 - 80.0 % [facility] Platelet mean volume (Bld) [Entitic vol] 8.7 fL 7.4 - 12.4 fL [facility] Comment on above: MPV is a calculated measurement using platelet volume ratio Platelets (Bld) [#/Vol] 311 10*3/uL 140 - 440 10*3/uL [facility] RBC (Bld) [#/Vol] 5.04 10*6/uL 4.40 - 5.9 0 10*6/uL [facility] WBC (Bld) [#/Vol] 12.1 10*3/uL High 3.6 - 10.7 10*3/uL [facility] Comprehensive metabolic 1998 panelon 08-26-2022 Albumin [Mass/Vol] 4.2 g/dL 3.5 - 5.0 g/dL [facility] ALP [Catalytic activity/Vol] 164 U/L High 38 - 126 U/L [facility] ALT [Catalytic activity/Vol] 32 U/L 0 - 49 U/L [facility] Anion gap [Moles/Vol] 6 mmol/L 3 - 13 mmol/L [facility] AST [Catalytic activity/Vol] 58 U/L High 15 - 46 U/L [facility] Bilirubin [Mass/Vol] 0.8 mg/dL 0.2 - 1 .3 mg/dL [facility] Calcium [Mass/Vol] 8.7 mg/dL 8.4 - 10. 4 mg/dL [facility] Chloride [Moles/Vol] 97 mmol/L Low 98 - 10 7 mmol/L [facility] CO2 [Moles/Vol] 34 mmol/L High 22 - 30 mmol/L [facility] Creatinine [Mass/Vol] 0.69 mg/dL 0.66 - 1.25 mg/dL [facility] GFR/1.73 sq M.predicted MDRD (S/P/Bld) [Vol rate/Area] - PINF [facility] Comment on above: Calculation based on the Chronic Kidney Disease Epidemiology Collaboration (CKD-EPI) equation refit without adjustment for race Glucose [Mass/Vol] 117 mg/dL High 70 - 100 mg/dL [facility] Interpretation and review of laboratory results Abnormal [facility] Potassium [Moles/Vol] 3.4 mmol/L Low 3.5 - 5.1 mmol/L [facility] Protein [Mass/Vol] 7.7 g/dL 6.3 - 8.2 g/dL [facility] Sodium [Moles/Vol] 137 mmol/L 135 - 145 mmol/L [facility] Urea nitrogen [Mass/Vol] 20 mg/dL 9 - 20 mg/dL [facility] Ethanol (Bld) [Mass/Vol]on 0 08-26-2022 Ethanol [Mass/Vol] g/dL 0.000 - 0 .010 g/dL [facility] Interpretation and review of laboratory results Normal [facility] Laboratory - Chemistry and C hemistry - challengeon 08-26-2022 Troponin I.cardiac [Mass/Vol] ng/mL 0.000 - 0.034 ng/mL [facility] Laboratory - Drug toxicology Ordered By: Soumya Reyes on 08-26-2022 Amphetamines Screen method >1000 ng/mL Ql (U) Negative [facility] Barbiturates Screen method >200 ng/mL Ql (U) Negative [facility] Benzodiazepines Ql (U) Negative [facility] Methadone Screen Ql (U) Positive [facility] Opiates Screen Ql (U) Positive [facility] oxyCODONE Ql (U) Positive [facility] Phencyclidine Ql (U) Negative [facility] Laboratory - Drug toxicology on 08-26-2022 Cannabinoids Screen (U) [Mass/Vol] Positive [facility] Comment on above: THC metabolites have been [...] (COVID-19) Ag IA.rapid Ql (Resp) Negative Negative [facility] Comment on above: A negative result do es not rule out the possibility of SARS-CoV-2 infection. NAAT-based methods should be considered for symptomatic patients presenting greater than seven days after onset of symptoms. Method: Lateral flow immunoassay. Fact sheets for healthcare providers and patients can be found at the following sites: https://www.fda.gov/media/250869/download https://www.fda.gov/media/592299/download No Panel InformationOrdered By: Glenda Angela on 08-26-2022 FENTANYL SCREEN, URINE Negative Negative [facility] Fentanyl has been screened for by Immunoassay at a 1 ng/ml threshold. POSITIVE results are not confirmed by a more specific alternative method unless requested. If confirmation is needed, request confirmation under separate order. NOTE: These results are for medical treatment only. Analysis performed using non-forensic procedures. [facility] No Panel InformationOrdered By: Soumya Reyes on 08-26-2022 COCAINE METAB. SCREEN Negative [facility] The expected value for all of [...] is needed, request confirmation under separate order. [facility] No Panel Informationon 08-26 [facility] SARS-CoV-2 (COVID-19) Ag IA. rapid Ql (Resp)on 08-26-2022 Interpretation and review of laboratory results Normal [facility] Troponin I.cardiac [Mass/Vol ]on 08-26-2022 Interpretation and review of laboratory results Normal [facility] Patients with high levels of Biotin oral intake (ie >5 mg/day) may have falsely decreased Troponin levels. [facility] Urinalysis complete panel (U )Ordered By: Debbie Ryan on 08-26-2022 Bacteria LM.HPF (Urine sed) [#/Area] Few Abnormal Negative /HPF [facility] Bilirubin Ql (U) Negative Negative mg/dL [facility] Clarity (U) Clear Clear [facility] Color (U) Light Mcintosh Abnormal Lt. Yellow [facility] Epithelial cells.squamous LM.HPF (Urine sed) [#/Area] [facility] Gl[facility] Ql (U) Normal Normal (<70) mg/dL [facility] Hemoglobin Ql (U) Negative Negative mg/dL [facility] Interpretation and review of laboratory results Abnormal [facility] Ketones (U) [Mass/Vol] 20 mg/dL Abnormal Negative [facility] Leukocyte esterase Test strip Ql (U) 25 Abnormal Negative Soren/uL [facility] Mucus LM.HPF (Urine sed) [#/Area] Few Negative /LPF [facility] Nitrite Ql (U) Negative Negative [facility] th pH (U) 6.5 [pH] 5.0 - 8.0 pH [facility] Protein (U) [Mass/Vol] 70 mg/dL Abnormal Negative [facility] RBC LM.HPF (Urine sed) [#/Area] 0-2 [facility] Specific gravity (U) [Rel density] 1.028 1.005 - 1.030 [facility] Urobilinogen (U) [Mass/Vol] 4 mg/dL Abnormal Normal (0-1) [facility] Volume, Urine 12 mL [facility] WBC LM.HPF (Urine sed) [#/Area] 0-2 [facility] Basic metabolic 1998 panelon 08-06-2022 Anion gap [Moles/Vol] 3 mmol/L 3 - 13 mmol/L [facility] Calcium [Mass/Vol] 7.9 mg/dL Low 8.4 - 10. 4 mg/dL [facility] Chloride [Moles/Vol] 103 mmol/L 98 - 10 7 mmol/L [facility] CO2 [Moles/Vol] 32 mmol/L High 22 - 30 mmol/L [facility] Creatinine [Mass/Vol] 0.68 mg/dL 0.66 - 1.25 mg/dL [facility] GFR/1.73 sq M.predicted MDRD (S/P/Bld) [Vol rate/Area] - PINF [facility] Comment on above: Calculation based on the Chronic Kidney Disease Epidemiology Collaboration (CKD-EPI) equation refit without adjustment for race Glucose [Mass/Vol] 91 mg/dL 70 - 100 mg/dL [facility] Interpretation and review of laboratory results Abnormal [facility] Potassium [Moles/Vol] 3.7 mmol/L 3.5 - 5.1 mmol/L [facility] Sodium [Moles/Vol] 138 mmol/L 135 - 145 mmol/L [facility] Urea nitrogen [Mass/Vol] 13 mg/dL 9 - 20 mg/dL [facility] C-reactive proteinon 023 CRP [Mass/Vol] 5.9 mg/L NINF - 10.0 mg/L [facility] CBC W Auto Differential pane l (Bld)Ordered By: Salina Calvo on 08-06-2022 Basophils (Bld) [#/Vol] 0.1 10*3/uL 0.0 - 0.2 10*3/uL [facility] Basophils/100 WBC (Bld) 1.1 % 0.0 - 2.0 % [facility] Eosinophils (Bld) [#/Vol] 0.3 10*3/uL 0.0 - 0.5 10*3/uL [facility] Eosinophils/100 WBC (Bld) 3.8 % 1.0 - 6.0 % [facility] Erythrocyte distribution width (RBC) [Ratio] 17.2 % High 11.5 - 14.5 % [facility] Hematocrit (Bld) [Volume fraction] 41.2 % 40.0 - 52.0 % [facility] Hemoglobin (Bld) [Mass/Vol] 13.9 g/dL 13.0 - 18.0 g/dL [facility] Immature granulocytes (Bld) [#/Vol] 0.0 10*3/uL NINF - 0.0 10*3/uL [facility] Immature granulocytes/100 WBC (Bld) 0.4 % High NINF - 0.0 % [facility] Interpretation and review of laboratory results Abnormal [facility] Lymphocytes (Bld) [#/Vol] 3.0 10*3/uL 1.0 - 4.3 10*3/uL [facility] Lymphocytes/100 WBC (Bld) 41.4 % High 20.0 - 40.0 % [facility] MCH (RBC) [Entitic mass] 29.7 pg 26.0 - 34.0 pg [facility] MCHC (RBC) [Mass/Vol] 33.7 % 32.0 - 36.0 % [facility] MCV (RBC) [Entitic vol] 88.0 fL 80.0 - 98.0 fL [facility] Monocytes (Bld) [#/Vol] 0.5 10*3/uL 0.0 - 0.8 10*3/uL [facility] Monocytes/100 WBC (Bld) 7.3 % 2.0 - 10.0 % [facility] Neutrophils (Bld) [#/Vol] 3.3 10*3/uL 1.8 - 7.0 10*3/uL [facility] Neutrophils/100 WBC (Bld) 46.0 % 40.0 - 80.0 % [facility] Platelet mean volume (Bld) [Entitic vol] 8.2 fL 7.4 - 12.4 fL [facility] Comment on above: MPV is a calculated measurement using platelet volume ratio Platelets (Bld) [#/Vol] 338 10*3/uL 140 - 440 10*3/uL [facility] RBC (Bld) [#/Vol] 4.68 10*6/uL 4.40 - 5.9 0 10*6/uL [facility] WBC (Bld) [#/Vol] 7.2 10*3/uL 3.6 - 10.7 10*3/uL [facility] CRP [Mass/Vol]on 08-06-2022 Interpretation and review of laboratory results Normal [facility] ESR (Bld) [Velocity]on 08-06 Interpretation and review of laboratory results Normal [facility] Sed Rate 7 [facility] No Panel Informationon 08-06 [facility] Basic metabolic 1998 panelon 07-28-2022 Anion gap [Moles/Vol] 7 mmol/L 3 - 13 mmol/L [facility] Calcium [Mass/Vol] 8.7 mg/dL 8.4 - 10. 4 mg/dL [facility] Chloride [Moles/Vol] 98 mmol/L 98 - 10 7 mmol/L [facility] CO2 [Moles/Vol] 31 mmol/L High 22 - 30 mmol/L [facility] Creatinine [Mass/Vol] 0.61 mg/dL Low 0.66 - 1.25 mg/dL [facility] GFR/1.73 sq M.predicted MDRD (S/P/Bld) [Vol rate/Area] - PINF [facility] Comment on above: Calculation based on the Chronic Kidney Disease Epidemiology Collaboration (CKD-EPI) equation refit without adjustment for race Glucose [Mass/Vol] 93 mg/dL 70 - 100 mg/dL [facility] Interpretation and review of laboratory results Abnormal [facility] Potassium [Moles/Vol] 3.2 mmol/L Low 3.5 - 5.1 mmol/L [facility] Sodium [Moles/Vol] 136 mmol/L 135 - 145 mmol/L [facility] Urea nitrogen [Mass/Vol] 19 mg/dL 9 - 20 mg/dL [facility] CBC W Auto Differential pane l (Bld)Ordered By: Frannie Manzanares on 07-28-2022 Basophils (Bld) [#/Vol] 0.1 10*3/uL 0.0 - 0.2 10*3/uL [facility] Basophils/100 WBC (Bld) 0.9 % 0.0 - 2.0 % [facility] Eosinophils (Bld) [#/Vol] 0.1 10*3/uL 0.0 - 0.5 10*3/uL [facility] Eosinophils/100 WBC (Bld) 0.7 % Low 1.0 - 6.0 % [facility] Erythrocyte distribution width (RBC) [Ratio] 16.3 % High 11.5 - 14.5 % [facility] Hematocrit (Bld) [Volume fraction] 45.2 % 40.0 - 52.0 % [facility] Hemoglobin (Bld) [Mass/Vol] 15.2 g/dL 13.0 - 18.0 g/dL [facility] Immature granulocytes (Bld) [#/Vol] 0.1 10*3/uL High NINF - 0.0 10*3/uL [facility] Immature granulocytes/100 WBC (Bld) 0.4 % High NINF - 0.0 % [facility] Interpretation and review of laboratory results Abnormal [facility] Lymphocytes (Bld) [#/Vol] 3.8 10*3/uL 1.0 - 4.3 10*3/uL [facility] Lymphocytes/100 WBC (Bld) 30.0 % 20.0 - 40.0 % [facility] MCH (RBC) [Entitic mass] 28.7 pg 26.0 - 34.0 pg [facility] MCHC (RBC) [Mass/Vol] 33.6 % 32.0 - 36.0 % [facility] MCV (RBC) [Entitic vol] 85.4 fL 80.0 - 98.0 fL [facility] Monocytes (Bld) [#/Vol] 0.9 10*3/uL High 0.0 - 0.8 10*3/uL [facility] Monocytes/100 WBC (Bld) 7.1 % 2.0 - 10.0 % [facility] Neutrophils (Bld) [#/Vol] 7.7 10*3/uL High 1.8 - 7.0 10*3/uL [facility] Neutrophils/100 WBC (Bld) 60.9 % 40.0 - 80.0 % [facility] Platelet mean volume (Bld) [Entitic vol] 8.6 fL 7.4 - 12.4 fL [facility] Comment on above: MPV is a calculated measurement using platelet volume ratio Platelets (Bld) [#/Vol] 406 10*3/uL 140 - 440 10*3/uL [facility] RBC (Bld) [#/Vol] 5.29 10*6/uL 4.40 - 5.9 0 10*6/uL [facility] WBC (Bld) [#/Vol] 12.6 10*3/uL High 3.6 - 10.7 10*3/uL [facility] Laboratory - Chemistry and C hemistry - challengeon 07-28-2022 Troponin I.cardiac [Mass/Vol] ng/mL 0.000 - 0.034 ng/mL [facility] Magnesium [Mass/Vol] 1.8 mg/dL 1.6 - 2 .3 mg/dL [facility] Magnesium [Mass/Vol]on 07-28 Interpretation and review of laboratory results Normal [facility] No Panel Informationon 07-28 [facility] P [place] 42 degrees [facility] PA Interval 129 ms [facility] QRS [place] 38 degrees [facility] QRSD Interval 110 ms [facility] Interval 388 ms [facility] QTC Interval 479 ms [facility] T Wave [place] 69 degrees [facility] Betsy Rain MD - 07/28/2022 IMPRESSION: Sinus rhythm Abnormal R-wave progression, early transition Probable inferior infarct, old no acute st elevation Compared to ECG 05/10/2022 12:17:59 Left ventricular hypertrophy no longer present Myocardial infarct finding still present Electronically Signed On 07-28-2022 22:02:43 EDT by Betsy Rain [facility] Troponin I.cardiac [Mass/Vol ]on 07-28-2022 Interpretation and review of laboratory results Normal [facility] Patients with high levels of Biotin oral intake (ie >5 mg/day) may have falsely decreased Troponin levels. [facility] Vital signson 07-28-2022 Heart rate 92 /min bpm [facility] XR Chest Single viewon 07-28 FINDINGS/IMPRESSION: Limitations: [...] pain. . TECHNIQUE: Portable AP COMPARISON: 05/10/2022 [facility] Fe Finnegan MD - 07/28/2022 Patient [...] Electronically Signed Date/Time: 07/28/2022 10:01 PM EDT [facility] Radiology Study observation (narrative) Deandre tejeda XR Chest Single viewOrdered By: Fe Finnegan on 07-28-2022 [facility] [employer] Work Phone: XR Chest 2 Viewson 3 [...] pneumothorax. No acute osseous abnormality is demonstrated. [facility] Phillip Oshea MD - 05/10/2022 Patient [...] Electronically Signed Date/Time: 05/10/2022 1:02 PM EST [facility] Radiology Study observation (narrative) Deandre He alth XR Chest 2 ViewsOrdered By: Phillip Oshea on 05-10-2022 [facility] Work Phone: XR Hip - left 3 [...] Electronically Signed Date/Time: 04/24/2022 4:59 PM EST [facility] [employer] Radiology Study observation (narrative) [facility] XR Hip - left 3 ViewsOrdered By: Phillip Oshea on 04-24-2022 [employer] Work Phone: CULTURE BLOODon 09-27-2021 Microscopic examination of blood, culture CULTURE BLOOD --> Status: F Coagulase negative Staphylococcus species DETECTED. Presumptive identification performed using Geen[employer] PCR methodology; confirmatory identification to follow. _ The Geen[employer] BCID2 PCR Panel can detect the following [...] methodology; confirmatory identification to follow. _ The Ge[employer] BCID2 PCR Panel can detect the following [...] be positive with the same organism. Normal [facility] Comment on above: Performed By: #### C UA2, DRGA4 #### [address] CULTURE BLOOD (Two)on 2021 Microscopic examination of blood, culture 1 Organism (Coagulase-negative) Staphylococcus epidermidis Isolated: Contamination likely unless additional blood culture sets are found to be positive with the same organism. Normal [facility] Comment on above: Performed By: #### C UA2, DRGA4 #### [address] Basic Metabolic Panelon 06- Anion gap [Moles/Vol] 6 mmol/L Normal 3-13 [facility] Comment on above: Performed By: #### T ROPN, MG3, HEMDF, BMP3, PCAL #### [address] Calcium [Mass/Vol] 8.6 mg/dL Normal 8.4-10.4 [facility] Comment on above: Performed By: #### T ROPN, MG3, HEMDF, BMP3, PCAL #### [address] CO2 [Moles/Vol] 26 mmol/L Normal 22-30 [facility] Comment on above: Performed By: #### T ROPN, MG3, HEMDF, BMP3, PCAL #### [facility] [address] [place], [place] Creatinine [Mass/Vol] 0.72 mg/dL Normal 0.52-1.25 [facility] Comment on above: Performed By: #### T ROPN, MG3, HEMDF, BMP3, PCAL #### [facility] [address] [place], [place] eGFR OTHER > 90.0 Normal >60 [facility] Comment on above: Result Comment: KDIG O [...] T ROPN, MG3, HEMDF, BMP3, PCAL #### [facility] [address] [place], [place] GFR/1.73 sq M.predicted among blacks MDRD (S/P/Bld) [Vol rate/Area] mL/min/{1.73_m2} Normal >60 [facility] Comment on above: Performed By: #### T ROPN, MG3, HEMDF, BMP3, PCAL #### [facility] [address] [place], [place] Glucose [Mass/Vol] 109 mg/dL High 70-100 [facility] Comment on above: Performed By: #### T ROPN, MG3, HEMDF, BMP3, PCAL #### [place] [address] [address] [place], [place] Urea nitrogen [Mass/Vol] 25 mg/dL High 7-17 [facility] Comment on above: Performed By: #### T ROPN, MG3, HEMDF, BMP3, PCAL #### [place] [address] [address] [place], [place] Chloride [Moles/Vol] 102 mmol/L Normal 98-107 [facility] Comment on above: Performed By: #### T ROPN, MG3, HEMDF, BMP3, PCAL #### [place] [address] [address] [place], [place] Potassium [Moles/Vol] 3.4 mmol/L Low 3.5-5.1 [facility] Comment on above: Performed By: #### T ROPN, MG3, HEMDF, BMP3, PCAL #### [place] [address] [address] [place], [place] Sodium [Moles/Vol] 134 mmol/L Low 135-145 [facility] Comment on above: Performed By: #### T ROPN, MG3, HEMDF, BMP3, PCAL #### [place] [address] [address] [place], [place] Anion gap [Moles/Vol] 6 mmol/L 3 - 13 mmol/L [facility] Calcium [Mass/Vol] 8.6 mg/dL 8.4 - 10. 4 mg/dL [facility] Chloride [Moles/Vol] 102 mmol/L 98 - 10 7 mmol/L [facility] CO2 [Moles/Vol] 26 mmol/L 22 - 30 mmol/L [facility] Creatinine [Mass/Vol] 0.72 mg/dL 0.52 - 1.25 mg/dL [facility] EGFR IF NonAfrican British >90.0 >60 mL/min [facility] Comment on above: KDIGO guidelines pro [...] 11.2 10*3/uL High 3.6 - 10.7 10*3/uL 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 : 1980 Requested By: LOC MCKINNEY Order Number: [id number] Karlos MD: Ashlyn Wilson Measurements Intervals [place] Rate: 85 P: 47 PA: 125 QRS: 41 QRSD: 102 T: 17 QT: 393 QTc: 468 Interpretive Statements Sinus rhythm Minimal ST elevation, inferior leads Electronically Signed On 09-25-2021 8:46:47 EDT by Ashlyn Wilson [facility] Ashlyn Wilson MD - 09/25/2021 [facility] Test Date: 2021-09-25 Pat Name: EL SMITH Department: 1AHLU Room: [facility] Gender: M Pop 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: 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 : 1980 Requested By: LOC MCKINNEY Order Number: [id number] Reading MD: Ashlyn Wilson Measurements Intervals [place] Rate: 85 P: 47 PA: 125 QRS: 41 QRSD: 102 T: 17 QT: 393 QTc: 468 Interpretive Statements Sinus rhythm Minimal ST elevation, inferior leads Electronically Signed On 09-25-2021 8:46:47 EDT by Ashlyn Wilson [facility] Work Phone: EKG 12 LeadOrdered By: Jaymie Wilson on 09-25-2021 [facility] Work Phone: Hemogram w/ [employer]od[employer] 09-25 Abs Baso Cnt 0.1 10*3/uL Normal 0.0-0.2 [facility] Comment on above: Performed By: #### T ROPN, MG3, HEMDF, BMP3, PCAL #### [facility] [employer] [facility] [address] [place] [address] Abs Neutrophile Cnt 7.6 10*3/uL High 1.8-7.0 [facility] Comment on above: Performed By: #### T ROPN, MG3, HEMDF, BMP3, PCAL #### [facility] [employer] [facility] [address] [place] [address] Basophils/100 WBC (Bld) 1.2 % Normal 0.0-2.0 [facility] Comment on above: Performed By: #### T ROPN, MG3, HEMDF, BMP3, PCAL #### [facility] [address] [place] [address] Eosinophils (Bld) [#/Vol] 0.0 10*3/uL Normal 0.0-0.5 [facility] Comment on above: Performed By: #### T ROPN, MG3, HEMDF, BMP3, PCAL #### [place] [address] [address] [place], [place] Eosinophils/100 WBC (Bld) 0.2 % Low 1.0-6.0 [facility] Comment on above: Performed By: #### T ROPN, MG3, HEMDF, BMP3, PCAL #### [place] [address] [address] [place], [place] Erythrocyte distribution width (RBC) [Ratio] 19.1 % High 11.5-14.5 [facility] Comment on above: Performed By: #### T ROPN, MG3, HEMDF, BMP3, PCAL #### [place] [address] [address] [place], [place] Granulocytes/100 WBC (Bld) 68.4 % Normal 40.0-80.0 [facility] Comment on above: Performed By: #### T ROPN, MG3, HEMDF, BMP3, PCAL #### [place] [address] [address] [place], [place] Hematocrit (Bld) [Volume fraction] 40.4 % Normal 40.0-52.0 [facility] Comment on above: Performed By: #### T ROPN, MG3, HEMDF, BMP3, PCAL #### [place] [address] [address] [place], [place] Hemoglobin (Bld) [Mass/Vol] 13.4 g/dL Normal 13.0-18.0 [facility] Comment on above: Performed By: #### T ROPN, MG3, HEMDF, BMP3, PCAL #### [place] [address] [address] [place], [place] Lymphocytes (Bld) [#/Vol] 2.4 10*3/uL Normal 1.0-4.3 [facility] Comment on above: Performed By: #### T ROPN, MG3, HEMDF, BMP3, PCAL #### [place] [address] [address] [place], [place] Lymphocytes/100 WBC (Bld) 21.3 % Normal 20.0-40.0 [facility] Comment on above: Performed By: #### T ROPN, MG3, HEMDF, BMP3, PCAL #### [place] [address] [address] [place], [place] MCH (RBC) [Entitic mass] 26.2 pg Normal 26.0-34.0 [facility] Comment on above: Performed By: #### T ROPN, MG3, HEMDF, BMP3, PCAL #### [place] [address] [place], [place] MCHC 33.3 % Normal 32.0-36.0 [facility] Comment on above: Performed By: #### T ROPN, MG3, HEMDF, BMP3, PCAL #### [address] MCV (RBC) [Entitic vol] 78.7 fL Low 80.0-98.0 [facility] Comment on above: Performed By: #### T ROPN, MG3, HEMDF, BMP3, PCAL #### [address] Monocytes (Bld) [#/Vol] 1.0 10*3/uL High 0.0-0.8 [facility] Comment on above: Performed By: #### T ROPN, MG3, HEMDF, BMP3, PCAL #### [address] Monocytes/100 WBC (Bld) 8.9 % Normal 2.0-10.0 [facility] Comment on above: Performed By: #### T ROPN, MG3, HEMDF, BMP3, PCAL #### [address] [place], [place] Platelet mean volume (Bld) [Entitic vol] 7.1 fL Low 7.4-12.4 [facility] Comment on above: Result Comment: MPV is a calculated measurement using platelet volume ratio. Performed By: #### T ROPN, MG3, HEMDF, BMP3, PCAL #### [place] [address] [address] [place], [place] Platelets (Bld) [#/Vol] 430 10*3/uL Normal 140-440 [facility] Comment on above: Performed By: #### T ROPN, MG3, HEMDF, BMP3, PCAL #### [address] RBC (Bld) [#/Vol] 5.13 10*6/uL Normal 4.40-5.90 [facility] Comment on above: Performed By: #### T ROPN, MG3, HEMDF, BMP3, PCAL #### [place] [address] [place], [place] WBC (Bld) [#/Vol] 11.2 10*3/uL High 3.6-10.7 [facility] Comment on above: Performed By: #### T ROPN, MG3, HEMDF, BMP3, PCAL #### [place] [address] [place], [place] Magnesiumon 09-25-2021 Magnesium [Mass/Vol] 2.2 mg/dL Normal 1.6-2.3 [facility] Comment on above: Performed By: #### T ROPN, MG3, HEMDF, BMP3, PCAL #### [address] Magnesium [Mass/Vol] 2.2 mg/dL 1.6 - 2 .3 mg/dL [facility] No Panel Informationon 09-25 Test Performed by [facility], [facility] [place], [place] [id number] [place] [address] [facility] Procalcitoninon 09-25-2021 Procalcitonin 0.07 ng/mL Normal 0.00-0.09 [facility] Comment on above: Performed By: #### C UA2, DRGA4 #### [address] Interpretation See Below Normal [facility] Comment on above: Result Comment: PCT <0.50 = Low risk of severe sepsis and/or septic shock. PCT >2.00 = High risk of severe sepsis and/or septic shock. Performed By: #### C UA2, DRGA4 #### [address] Interpretation See Below [facility] Comment on above: PCT <0.50 = Low risk of severe sepsis and/or septic shock. PCT >2.00 = High risk of severe sepsis and/or septic shock. Procalcitonin 0.07 ng/mL 0.00 - 0.09 ng/mL [facility] Test Performed by [address] [facility] Troponinon 09-25-2021 Interpretation and review of laboratory results Abnormal [facility] Troponin I.cardiac [Mass/Vol] 8.740 ng/mL High 0.000 - 0.034 ng/mL [facility] Comment on above: . Test Performed by [address] [facility] Troponin Ion 09-25-2021 Troponin I.cardiac [Mass/Vol] 8.740 ng/mL High 0.000-0.034 [facility] Comment on above: Result Comment: . Performed By: #### T ROPN, MG3, HEMDF, BMP3, PCAL #### [address] Add on test from HISon 09-24 Add on test from HIS Accepted Normal [facility] Comment on above: Result Comment: Spec imen available & acceptable for analysis. Performed By: #### A DDON #### [facility] [address] [place] [address] Add on test from HIS Accepted Normal [facility] Comment on above: Result Comment: Spec imen available & acceptable for analysis. Performed By: #### A DDON #### [facility] [address] [place] [address] Basic Metabolic Panelon 06-0 Anion gap [Moles/Vol] 5 mmol/L Normal 3-13 [facility] Comment on above: Performed By: #### B MP3, TROPN #### [address] [place], [place] Calcium [Mass/Vol] 8.6 mg/dL Normal 8.4-10.4 [facility] Comment on above: Performed By: #### B MP3, TROPN #### [facility] [address] [place], [place] CO2 [Moles/Vol] 28 mmol/L Normal 22-30 [facility] Comment on above: Performed By: #### B MP3, TROPN #### [facility] [address] [place], [place] Glucose [Mass/Vol] 126 mg/dL High 70-100 [facility] Comment on above: Performed By: #### B MP3, TROPN #### [facility] [address] [place], [place] Urea nitrogen [Mass/Vol] 18 mg/dL High 7-17 [facility] Comment on above: Performed By: #### B MP3, TROPN #### [facility] [address] [place], [place] Creatinine [Mass/Vol] 0.67 mg/dL Normal 0.52-1.25 [facility] Comment on above: Performed By: #### B MP3, TROPN #### [facility] [address] [place], [place] eGFR OTHER > 90.0 Normal >60 [facility] Comment on above: Result Comment: KDIG O [...] Performed By: #### B MP3, TROPN #### [place] [address] [address] [place], [place] GFR/1.73 sq M.predicted among blacks MDRD (S/P/Bld) [Vol rate/Area] mL/min/{1.73_m2} Normal >60 [facility] Comment on above: Performed By: #### B MP3, TROPN #### [place] [address] [address] [place], [place] Potassium [Moles/Vol] 3.7 mmol/L Normal 3.5-5.1 [facility] Comment on above: Performed By: #### Danna MP3, TROPN #### [address] [place] [address] [place], [place] Sodium [Moles/Vol] 134 mmol/L Low 135-145 [facility] Comment on above: Performed By: #### Danna MP3, TROPN #### [place] [address] [address] [place], [place] Chloride [Moles/Vol] 101 mmol/L Normal 98-107 [facility] Comment on above: Performed By: #### B MP3, TROPN #### [address] [address] [place], [place] Anion gap [Moles/Vol] 5 mmol/L 3 - 13 mmol/L [facility] Calcium [Mass/Vol] 8.6 mg/dL 8.4 - 10. 4 mg/dL [facility] Chloride [Moles/Vol] 101 mmol/L 98 - 10 7 mmol/L [facility] CO2 [Moles/Vol] 28 mmol/L 22 - 30 mmol/L [facility] Creatinine [Mass/Vol] 0.67 mg/dL 0.52 - 1.25 mg/dL [facility] EGFR IF NonAfrican British >90.0 >60 mL/min [facility] Comment on above: KDIGO guidelines pro [...] 126 mg/dL High 70 - 100 mg/dL [facility] Interpretation and review of laboratory results Abnormal [facility] Potassium [Moles/Vol] 3.7 mmol/L 3.5 - 5.1 mmol/L [facility] Sodium [Moles/Vol] 134 mmol/L Low 135 - 145 mmol/L [facility] Urea nitrogen (BldV) [Mass/Vol] 18 mg/dL High 7 - 17 mg/dL [facility] Test Performed by [facility], [address] [place] [id number] [facility] Anion gap [Moles/Vol] 16 mmol/L High 3-13 [facility] Comment on above: Performed By: #### B MP3, TROPN #### [address] [address] Calcium [Mass/Vol] 9.1 mg/dL Normal 8.4-10.4 [facility] Comment on above: Performed By: #### B MP3, TROPN #### [address] [place] [address] [place] [address] CO2 [Moles/Vol] 21 mmol/L Low 22-30 [facility] Comment on above: Performed By: #### B MP3, TROPN #### [address] [place] [address] [place] [address] Glucose [Mass/Vol] 151 mg/dL High 70-100 [facility] Comment on above: Performed By: #### B MP3, TROPN #### [facility] [address] [place], [place] Urea nitrogen [Mass/Vol] 12 mg/dL Normal 7-17 [facility] Comment on above: Performed By: #### B MELISSA3, TROPN #### [facility] [address] [place], [place] Creatinine [Mass/Vol] 0.76 mg/dL Normal 0.52-1.25 [facility] Comment on above: Performed By: #### B MP3, TROPN #### [facility] [address] [place], [place] eGFR OTHER > 90.0 Normal >60 [facility] Comment on above: Result Comment: KDIG O [...] Performed By: #### B MELISSA3 TROPN #### [facility] [address] [place], [place] GFR/1.73 sq M.predicted among blacks MDRD (S/P/Bld) [Vol rate/Area] mL/min/{1.73_m2} Normal >60 [facility] Comment on above: Performed By: #### B MP3, TROPN #### [facility] [address] [place], [place] Potassium [Moles/Vol] 4.0 mmol/L Normal 3.5-5.1 [facility] Comment on above: Performed By: #### B MP3, TROPN #### [facility] [address] [place] [address] Chloride [Moles/Vol] 99 mmol/L Normal 98-107 [facility] Comment on above: Performed By: #### B MELISSA3GARCIA #### [facility] [address] [place], [place] Sodium [Moles/Vol] 136 mmol/L Normal 135-145 [facility] Comment on above: Performed By: #### B MELISSA3, COREYN #### [facility] [address] [place], [place] Anion gap [Moles/Vol] 16 mmol/L High 3 - 13 mmol/L [facility] Calcium [Mass/Vol] 9.1 mg/dL 8.4 - 10. 4 mg/dL [facility] Chloride [Moles/Vol] 99 mmol/L 98 - 10 7 mmol/L [facility] CO2 [Moles/Vol] 21 mmol/L Low 22 - 30 mmol/L [facility] Creatinine [Mass/Vol] 0.76 mg/dL 0.52 - 1.25 mg/dL [facility] EGFR IF NonAfrican British >90.0 >60 mL/min [facility] Comment on above: KDIGO guidelines pro vide [...] Anion gap [Moles/Vol] 18 mmol/L High 3-13 [facility] Comment on above: Performed By: #### H EMDF, ETOH4, BMP3, TROPN, LIPA4 #### [facility] [address] [place] [address] Calcium [Mass/Vol] 9.5 mg/dL Normal 8.4-10.4 [facility] Comment on above: Performed By: #### H EMDF, ETOH4, BMP3, TROPN, LIPA4 #### [facility] [address] [place] [address] CO2 [Moles/Vol] 23 mmol/L Normal 22-30 [facility] Comment on above: Performed By: #### H EMDF, ETOH4, BMP3, TROPN, LIPA4 #### [facility] [address] [place] [address] Glucose [Mass/Vol] 156 mg/dL High 70-100 [facility] Comment on above: Performed By: #### H EMDF, ETOH4, BMP3, TROPN, LIPA4 #### [facility] [address] [place] [address] Urea nitrogen [Mass/Vol] 12 mg/dL Normal 7-17 [facility] Comment on above: Performed By: #### H EMDF, ETOH4, BMP3, TROPN, LIPA4 #### [facility] [address] [place] [address] Creatinine [Mass/Vol] 0.81 mg/dL Normal 0.52-1.25 [facility] Comment on above: Performed By: #### H EMDF, ETOH4, BMP3, TROPN, LIPA4 #### [facility] [address] [place] [address] eGFR OTHER > 90.0 Normal >60 [facility] Comment on above: Result Comment: KDIG O [...] H EMDF, ETOH4, BMP3, TROPN, LIPA4 #### [facility] [address] [place] [address] GFR/1.73 sq M.predicted among blacks MDRD (S/P/Bld) [Vol rate/Area] mL/min/{1.73_m2} Normal >60 [facility] Comment on above: Performed By: #### H EMDF, ETOH4, BMP3, TROPN, LIPA4 #### [facility] [address] [place] [address] Chloride [Moles/Vol] 99 mmol/L Normal 98-107 [facility] Comment on above: Performed By: #### H EMDF, ETOH4, BMP3, TROPN, LIPA4 #### [facility] [address] [place] [address] Potassium [Moles/Vol] 3.4 mmol/L Low 3.5-5.1 [facility] Comment on above: Performed By: #### H EMDF, ETOH4, BMP3, TROPN, LIPA4 #### [facility] [address] [place] [address] Sodium [Moles/Vol] 140 mmol/L Normal 135-145 [facility] Comment on above: Performed By: #### H EMDF, ETOH4, BMP3, TROPN, LIPA4 #### [facility] [address] [place] [address] Beta Hydroxybutyrateon 09-24 Beta Hydroxybutyrate 0.74 mg/dL Normal 0.20-2.81 [facility] Comment on above: Performed By: #### B MELISSA3GARCIA #### [facility] [address] [place] [address] Beta-Hydroxybutyrateon 09-24 Beta-Hydroxybutyrate 0.74 mg/dL 0.20 - 2.81 mg/dL [facility] CARDIAC CATH NURSING LOGon 0 09-24-2021 Ordered by an unspecified provider. [facility] with Auto Differentialon 09-24-2021 Absolute [...] [Mass/Vol] 14.6 g/dL 13.0 - 18.0 g/dL [facility] Interpretation and review of laboratory results [...] - 10.7 10*3/uL [facility] Test Performed by [address] LAB [facility] CK with Reflex CK-MBon 09-24 CK [Catalytic activity/Vol] 108 U/L 30 - 170 U/L [facility] CK-MB Indexon 09-24-2021 CK-MB Index 6.[address] [facility] CK.MB [Mass/Vol] 7.3 ng/mL High 0.0 - 2.4 ng/mL [facility] Comment on above: Both the CKMB and th e Relative Index must be abnormal for clinical significance. Interpretation and review of laboratory results Abnormal [facility] Test Performed by [id number] [place] [address] LAB [facility] CKMB Fractionationon 022 CK.MB [Mass/Vol] 7.3 ng/mL High 0.0-2.[address] [facility] Comment on above: Result Comment: Both the CKMB and the Relative Index must be abnormal for clinical significance. Performed By: #### B MP3, TROPN #### [address] [address] Relative Index 6.8 High 0.0-3.0 [facility] Comment on above: Performed By: #### B MP3, TROPN #### [facility] [address] [place] [address] CKMB Screenon 09-24-2021 CK [Catalytic activity/Vol] 108 U/L Normal 30-170 [facility] Comment on above: Performed By: #### B MP3, TROPN #### [facility] [address] [place] [address] COVID and Resp PCR Panelon 0 09-24-2021 SARS-CoV-2 (COVID-19) RNA CONONR+probe Ql (Unsp spec) COVID and Resp PCR [...] pneumoniae, Mycoplasma pneumoniae. Method: Real-time PCR. Normal [facility] Comment on above: Performed By: #### C UA2, DRGA4 #### [facility] [address] [place] [address] CR Chest Portableon 09-25-19 22 CR Chest Portable Patient Name: EL SMITH Diagnostic Radiology ACCESSION EXAM DATE/TIME PROCEDURE ORDERING PROVIDER [id number] 09/23/2021 23:19 EDT CR Chest Portable MD [place], MIQUEL CPT code 74090 Reason For Exam (CR Chest Portable) chest [...] Transcribed Date and Time: 09/23/2021 11:41 Normal [facility] Complete Urinalysison 2021 Appearance (U) Clear Normal Clear [facility] Comment on above: Result Comment: . Performed By: #### C UA2, DRGA4 #### [place] [address] [address] [place], [place] Bacteria LM.HPF (Urine sed) [#/Area] Negative Normal Negative [facility] Comment on above: Result Comment: . Performed By: #### C UA2, DRGA4 #### [address] [address] [address] [place], [place] Bilirubin,Urine Negative Normal Negative [facility] Comment on above: Result Comment: . Performed By: #### C UA2, DRGA4 #### [address] [address] [address] [place], [place] Cast, Hyaline Negative Normal Negative [facility] Comment on above: Result Comment: . Performed By: #### C UA2, DRGA4 #### [place] [address] [address] [place], [place] Color (U) Yellow Normal Lt. Yellow [facility] Comment on above: Result Comment: . Performed By: #### C UA2, DRGA4 #### [address] [place] [address] Glucose Ql (U) Normal Normal Normal (<70) [facility] Comment on above: Result Comment: . Performed By: #### C UA2, DRGA4 #### [place] [address] [address] [place], [place] Ketone,Urine Trace Abnormal Negative [facility] Comment on above: Result Comment: . Performed By: #### C UA2, DRGA4 #### [place] [address] [address] [place], [place] Leukocytes,Urine Negative Normal Negative [facility] Comment on above: Result Comment: . Performed By: #### C UA2, DRGA4 #### [place] [address] [address] [place], [place] Mucous Threads Few Normal Negative [facility] Comment on above: Result Comment: . Performed By: #### C UA2, DRGA4 #### [place] [address] [address] [place], [place] Nitrites,Urine Negative Normal Negative [facility] Comment on above: Result Comment: . Performed By: #### C UA2, DRGA4 #### [address] [address] [address] [place], [place] Occult Blood,Urine 0.03 mg/dL Abnormal Negative [facility] Comment on above: Result Comment: . Performed By: #### C UA2, DRGA4 #### [place] [address] [address] [place], [place] pH,Urine 6.5 Normal 5.0-8.0 [facility] Comment on above: Result Comment: . Performed By: #### C UA2, DRGA4 #### [place] [address] [address] [place], [place] Protein (U) [Mass/Vol] 100 mg/dL Abnormal Negative [facility] Comment on above: Result Comment: . Performed By: #### C UA2, DRGA4 #### [place] [address] [address] [place], [place] RBC, Urine 0 - 2 Normal 0-2 [facility] Comment on above: Result Comment: . Performed By: #### C UA2, DRGA4 #### [place] [address] [address] [place], [place] Specific [place],Urine > 1.030 Abnormal 1.005 - 1.030 [facility] Comment on above: Result Comment: . Performed By: #### C UA2, DRGA4 #### [facility] [address] [place], [place] Squamous Epithelial 0 - 2 Normal 3-5 [facility] Comment on above: Result Comment: . Performed By: #### C UA2, DRGA4 #### [facility] [address] [place], [place] Urobilinogen,Urine Normal Normal Normal (0-1) [facility] Comment on above: Result Comment: . Performed By: #### C UA2, DRGA4 #### [place] [address] [address] [place], [place] WBC LM.HPF (Urine sed) [#/Area] Negative Normal 0-5 [facility] Comment on above: Result Comment: . Performed By: #### C UA2, DRGA4 #### [place] [address] [address] [place], [place] Drugs of Abuseon 09-24-2021 Amphetamines, Ur Negative Normal [facility] Comment on above: Performed By: #### C UA2, DRGA4 #### [place] [address] [address] [place], [place] Oxycodone/Oxymorphine,U r Positive Normal [facility] Comment on above: Performed By: #### C UA2, DRGA4 #### [place] [address] [address] [place], [place] Cocaine, Ur Negative Normal [facility] Comment on above: Performed By: #### C UA2, DRGA4 #### [address] [place], [place] Phencyclidine (PCP), Ur Negative Normal [facility] Comment on above: Result [...] Performed By: #### C UA2, DRGA4 #### [facility] [address] [place], [place] Opiates, Ur Positive Normal [facility] Comment on above: Performed By: #### C UA2, DRGA4 #### [facility] [address] [place], [place] Methadone, Ur Negative Normal [facility] Comment on above: Performed By: #### C UA2, DRGA4 #### [place] [address] [address] [place], [place] Benzodiazepines, Ur Positive Normal [facility] Comment on above: Performed By: #### C UA2, DRGA4 #### [place] [address] [address] [place], [place] Barbiturates, Ur Negative Normal [facility] Comment on above: Performed By: #### C UA2, DRGA4 #### [place] [address] [address] [place], [place] ECHO Complete 2D W Doppler W Coloron 09-24-2021 TRANSTHORACIC ECHOCARDIOGRAM PATIENT: El Smith STUDY DATE: 09/24/2021 M : 1980 AGE: 40 HT/WT: 177.8 cm (70 91.6 kg (201.6 in) lb) GENDER: M BP: 120 / 87 LOCATION: [facility] PATIENT Inpatient main STATUS: *ORDERING PHYSICIAN: * Yevgeniy Green *READING PHYSICIAN: * Adam Marie MD *IT PROGRAM MANAGER: * Tricia Ny -------- INDICATIONS: Stemi, lv [...] average 6.3 Ventricular septum Value Reference IVS [facility] (more content not included)... [facility] Adam Marie MD - 09/24/2021 TRANSTHORACIC ECHOCARDIOGRAM PATIENT: El Smith STUDY DATE: 09/24/2021 M : 1980 AGE: 40 HT/WT: 177.8 cm (70 91.6 kg (201.6 in) lb) GENDER: M BP: 120 / 87 LOCATION: [facility] PATIENT Inpatient main STATUS: *ORDERING PHYSICIAN: * Yevgeniy Green *READING PHYSICIAN: * Adam Marie MD *IT PROGRAM MANAGER: * Tricia Ny -------- INDICATIONS: Stemi, lv [...] 125 ms Mitr (more content not included)... 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 : 1980 Requested By: LOC MCKINNEY Order Number: [id number] Reading MD: Jamison Talamantes Measurements Intervals [place] Rate: 109 P: 57 PA: 129 QRS: 62 QRSD: 101 T: 96 QT: 347 QTc: 468 Interpretive Statements Sinus tachycardia Inferior infarct, acute Electronically Signed On 09-24-2021 13:00:03 EDT by Jamison Talamantes [facility] Jamison Talamantes MD - 09/24/2021 [employer] Test Date: 2021-09-24 Pat Name: EL SMITH Department: [facility] Room: 1[facility] Gender: M Pop Singer: MASON : 1980 Requested By: LOC MCKINNEY Order Number: [id number] Reading : Jamison Talamantes Measurements Intervals [place] Rate: 109 P: 57 PA: 129 QRS: 62 QRSD: 101 T: 96 QT: 347 QTc: 468 Interpretive Statements Sinus tachycardia Inferior infarct, acute Electronically Signed On 09-24-2021 13:00:[address] [facility] Work Phone: EKG 12 LeadOrdered By: Jamison Talamantes on 09-24-2021 [facility] Work Phone: EKG 12 leadon 09-24-2021 [facility] Test Date: 2021-09-24 Pat Name: EL SMITH Department: [facility] Room: 1[facility] Gender: M Pop Singer: DIEGO : 1980 Requested By: LOC MCKINNEY Order Number: [id number] Reading MD: Jamison Talamantes Measurements Intervals [place] Rate: 106 P: 43 PA: 142 QRS: 47 QRSD: 105 T: 117 QT: 365 QTc: 486 Interpretive Statements Sinus tachycardia Borderline T wave abnormalities Borderline prolonged QT interval INFERIOR INFARCT, AGE INDETERMINATE Electronically Signed On 09-24-2021 12:14:16 EDT by Jamison Talamantes [facility] Jamison Garcia MD - 09/24/2021 [facility] Test Date: 2021-09-24 Pat Name: EL SMITH Department: 1[facility] Room: 1[facility]U Gender: M Pop Singer: DIEGO : 1980 Requested By: LOC MCKINNEY Order Number: [id number] Reading : Jamison Talamantes Measurements Intervals [place] Rate: 106 P: 43 PA: 142 QRS: 47 QRSD: 105 T: 117 QT: 365 QTc: 486 Interpretive Statements Sinus tachycardia Borderline T wave abnormalities Borderline prolonged QT interval INFERIOR INFARCT, AGE INDETERMINATE Electronically Signed On 09-24-2021 12:14:[address] [facility] Work Phone: [facility] Work Phone: Echo Complete w/wo Contrasto n 09-24-2021 Echo Complete w/wo Contrast Patient Name: EL SMITH Ultrasound ACCESSION EXAM DATE/TIME PROCEDURE ORDERING PROVIDER [id number] 09/24/2021 10:15 EDT Echo Complete w/wo [id number] -YEVGENIY GREEN Reason For Exam (Echo Complete w/wo Contrast) Assess LV fuction post STEMI Report TRANSTHORACIC ECHOCARDIOGRAM PATIENT: El Smith STUDY DATE: 09/24/2021 Sirisha : 1980 AGE: 40 HT/WT: 177.8 cm (70 91.6 kg (201.6 in) lb) GENDER: M BP: 120 / 87 LOCATION: [facility] PATIENT Inpatient main STATUS: *ORDERING PHYSICIAN: * Yevgeniy Green *READING PHYSICIAN: * Adam Marie MD *IT PROGRAM MANAGER: * Tricia Ny -------- INDICATIONS: Stemi, lv [...] mm Hg (more content not included)... Normal [facility] Ethanol Serum/Plasmaon 09-24 Ethanol-Serum/Plasma < 0.010 Normal 0.000-0.010 [facility] Comment on above: Result Comment: NOTE : This result is for medical treatment only. Analysis performed using non-forensic procedures. Performed By: #### H EMDF, ETOH4, BMP3, TROPN, LIPA4 #### [facility] [address] [place] [address] Ferritinon 09-24-2021 Ferritin [Mass/Vol] 13 ng/mL Low 18-464 [facility] Comment on above: Performed By: #### B MP3, TROPN #### [address] [address] Ferritin [Mass/Vol] 13 ng/mL Low 18 - 464 ng/mL [facility] Interpretation and review of laboratory results Abnormal [facility] Test Performed by [facility], [address] [place] [id number] [place] [address] [facility] Hemoglobin A1Con 09-24-2021 Glucose [Mass/Vol] 105 mg/dL Normal [facility] Comment on above: Performed By: #### B MP3, TROPN #### [address] [address] HbA1c (Bld) [Mass fraction] 5.3 % Normal [facility] Comment on above: Result Comment: Norm al less than 5.7% Prediabetes 5.7% to 6.4% Diabetes 6.5% or higher --HgbA1C levels may not be accurate in patients who have renal disease, received recent blood transfusions, are anemic, or who have dyshemoglobinemia. Performed By: #### Danna TORRES3 TROPN #### [address] HbA1c (Bld) [Mass fraction] 5.3 % [facility] Comment on above: Normal less than 5.7 % Prediabetes 5.7% to 6.4% Diabetes 6.5% or higher --HgbA1C levels may not be accurate in patients who have renal disease, received recent blood transfusions, are anemic, or who have dyshemoglobinemia. Magnesium [Mass/Vol] 105 mg/dL [facility] Test Performed by [facility], [address] [place] [address] [facility] Hemogram w/ Autodiffon 09-24 Abs Baso Cnt 0.1 10*3/uL Normal 0.0-0.2 [facility] Comment on above: Performed By: #### Danna TORRES3 TROPN #### [address] Abs Neutrophile Cnt 17.0 10*3/uL High 1.8-7.0 [facility] Comment on above: Performed By: #### Danna TORRES3, TROPN #### [address] Basophils/100 WBC (Bld) 0.8 % Normal 0.0-2.0 [facility] Comment on above: Performed By: #### Danna MP3, TROPN #### [address] Eosinophils (Bld) [#/Vol] 0.0 10*3/uL Normal 0.0-0.5 [facility] Comment on above: Performed By: #### Danna TORRES3, TROPN #### [address] Eosinophils/100 WBC (Bld) 0.0 % Low 1.0-6.0 [facility] Comment on above: Performed By: #### Danna TORRES3, TROPN #### [address] Erythrocyte distribution width (RBC) [Ratio] 19.7 % High 11.5-14.5 [facility] Comment on above: Performed By: #### B MP3 TROPN #### [address] [address] [address] [place], [place] Granulocytes/100 WBC (Bld) 88.2 % High 40.0-80.0 [facility] Comment on above: Performed By: #### B MP3, TROPN #### [address] [address] [address] [place], [place] Hematocrit (Bld) [Volume fraction] 44.5 % Normal 40.0-52.0 [facility] Comment on above: Performed By: #### B MP3, COREYN #### [address], [place] Hemoglobin (Bld) [Mass/Vol] 14.6 g/dL Normal 13.0-18.0 [facility] Comment on above: Performed By: #### B MP3, TROPN #### [address] [address], [place] Lymphocytes (Bld) [#/Vol] 1.2 10*3/uL Normal 1.0-4.3 [facility] Comment on above: Performed By: #### Danna MP3, COREYN #### [address] [address], [place] Lymphocytes/100 WBC (Bld) 6.2 % Low 20.0-40.0 [facility] Comment on above: Performed By: #### B MP3, TROPN #### [address] [address] [address], [place] MCH (RBC) [Entitic mass] 26.2 pg Normal 26.0-34.0 [facility] Comment on above: Performed By: #### B MP3, TROPN #### [address] [address] [address], [place] MCHC 32.7 % Normal 32.0-36.0 [facility] Comment on above: Performed By: #### B MP3, TROPN #### [address] [address] [address], [place] MCV (RBC) [Entitic vol] 80.0 fL Normal 80.0-98.0 [facility] Comment on above: Performed By: #### B MP3, TROPN #### [facility] [address], [place] Monocytes (Bld) [#/Vol] 0.9 10*3/uL High 0.0-0.8 [facility] Comment on above: Performed By: #### B MP3, TROPN #### [facility] [address], [place] Monocytes/100 WBC (Bld) 4.8 % Normal 2.0-10.0 [facility] Comment on above: Performed By: #### B MP3, TROPN #### [facility] [address], [place] Platelet mean volume (Bld) [Entitic vol] 7.1 fL Low 7.4-12.4 [facility] Comment on above: Result Comment: MPV is a calculated measurement using platelet volume ratio. Performed By: #### B MP3, TROPN #### [facility] [address], [place] Platelets (Bld) [#/Vol] 546 10*3/uL High 140-440 [facility] Comment on above: Performed By: #### B MP3, TROPN #### [facility] [address], [place] RBC (Bld) [#/Vol] 5.56 10*6/uL Normal 4.40-5.90 [facility] Comment on above: Performed By: #### B MP3, TROPN #### [facility] [address], [place] WBC (Bld) [#/Vol] 19.3 10*3/uL High 3.6-10.7 [facility] Comment on above: Performed By: #### B MP3, TROPN #### [facility] [address], [place] Abs Baso Cnt 0.2 10*3/uL Normal 0.0-0.2 [facility] Comment on above: Performed By: #### H EMDF, ETOH4, BMP3, TROPN, LIPA4 #### [facility] [address] [place] [address] Abs Neutrophile Cnt 18.1 10*3/uL High 1.8-7.0 [facility] Comment on above: Performed By: #### H EMDF, ETOH4, BMP3, TROPN, LIPA4 #### [facility] [address] [place] [address] Basophils/100 WBC (Bld) 0.8 % Normal 0.0-2.0 [facility] Comment on above: Performed By: #### H EMDF, ETOH4, BMP3, TROPN, LIPA4 #### [facility] [address] [place] [address] Eosinophils (Bld) [#/Vol] 0.0 10*3/uL Normal 0.0-0.5 [facility] Comment on above: Performed By: #### H EMDF, ETOH4, BMP3, TROPN, LIPA4 #### [facility] [address] [place] [address] Eosinophils/100 WBC (Bld) 0.0 % Low 1.0-6.0 [facility] Comment on above: Performed By: #### H EMDF, ETOH4, BMP3, TROPN, LIPA4 #### [facility] [address] [place] [address] Erythrocyte distribution width (RBC) [Ratio] 19.1 % High 11.5-14.5 [facility] Comment on above: Performed By: #### H EMDF, ETOH4, BMP3, TROPN, LIPA4 #### [facility] [address] [place] [address] Granulocytes/100 WBC (Bld) 85.7 % High 40.0-80.0 [facility] Comment on above: Performed By: #### H EMDF, ETOH4, BMP3, TROPN, LIPA4 #### [facility] [address] [place] [address] Hematocrit (Bld) [Volume fraction] 47.1 % Normal 40.0-52.0 [facility] Comment on above: Performed By: #### H EMDF, ETOH4, BMP3, TROPN, LIPA4 #### [facility] [address] [place] [address] Hemoglobin (Bld) [Mass/Vol] 16.0 g/dL Normal 13.0-18.0 [facility] Comment on above: Performed By: #### H EMDF, ETOH4, BMP3, TROPN, LIPA4 #### [facility] [address] [place] [address] Lymphocytes (Bld) [#/Vol] 1.5 10*3/uL Normal 1.0-4.3 [facility] Comment on above: Performed By: #### H EMDF, ETOH4, BMP3, TROPN, LIPA4 #### [address] [place] [address] Lymphocytes/100 WBC (Bld) 7.2 % Low 20.0-40.0 [facility] Comment on above: Performed By: #### H EMDF, ETOH4, BMP3, TROPN, LIPA4 #### [address] [place] [address] MCH (RBC) [Entitic mass] 26.5 pg Normal 26.0-34.0 [facility] Comment on above: Performed By: #### H EMDF, ETOH4, BMP3, TROPN, LIPA4 #### [address] [place] [address] MCHC 34.0 % Normal 32.0-36.0 [facility] Comment on above: Performed By: #### H EMDF, ETOH4, BMP3, TROPN, LIPA4 #### [address] [place] [address] MCV (RBC) [Entitic vol] 78.1 fL Low 80.0-98.0 [facility] Comment on above: Performed By: #### H EMDF, ETOH4, BMP3, TROPN, LIPA4 #### [address] [place] [address] Monocytes (Bld) [#/Vol] 1.2 10*3/uL High 0.0-0.8 [facility] Comment on above: Performed By: #### H EMDF, ETOH4, BMP3, TROPN, LIPA4 #### [facility] [address] [place] [address] Monocytes/100 WBC (Bld) 5.8 % Normal 2.0-10.0 [facility] Comment on above: Performed By: #### H EMDF, ETOH4, BMP3, TROPN, LIPA4 #### [facility] [address] [place] [address] Platelet mean volume (Bld) [Entitic vol] 8.5 fL Normal 7.4-12.4 [facility] Comment on above: Result Comment: MPV is a calculated measurement using platelet volume ratio. Performed By: #### H EMDF, ETOH4, BMP3, TROPN, LIPA4 #### [facility] [address] [place] [address] Platelets (Bld) [#/Vol] 639 10*3/uL High 140-440 [facility] Comment on above: Performed By: #### H EMDF, ETOH4, BMP3, TROPN, LIPA4 #### [facility] [address] [place] [address] RBC (Bld) [#/Vol] 6.03 10*6/uL High 4.40-5.90 [facility] Comment on above: Performed By: #### H EMDF, ETOH4, BMP3, TROPN, LIPA4 #### [facility] [address] [place] [address] WBC (Bld) [#/Vol] 21.1 10*3/uL High 3.6-10.7 [facility] Comment on above: Performed By: #### H EMDF, ETOH4, BMP3, TROPN, LIPA4 #### [facility] [address] [place] [address] Hepatic Functionon 2 ALT [Catalytic activity/Vol] 39 U/L Normal 0-49 [facility] Comment on above: Result Comment: The ALT test is performed by an updated assay method. Please note that the reference intervals have been changed and are now sex specific. Performed By: #### B MP3, TROPN #### [facility] [address] [place] [address] ALP [Catalytic activity/Vol] 131 U/L High 38-126 [facility] Comment on above: Performed By: #### B MP3, TROPN #### [facility] [address], [place] AST [Catalytic activity/Vol] 59 U/L High 15-46 [facility] Comment on above: Performed By: #### B MP3, TROPN #### [facility] [address], [place] Bilirubin [Mass/Vol] 1.1 mg/dL Normal 0.2-1.3 [facility] Comment on above: Performed By: #### B MP3, TROPN #### [facility] [address], [place] Protein [Mass/Vol] 7.0 g/dL Normal 6.3-8.2 [facility] Comment on above: Performed By: #### B MP3, TROPN #### [facility] [address], [place] Bilirubin.indirect [Mass/Vol] 0.0 mg/dL Normal 0.0-0.3 [facility] Comment on above: Performed By: #### B MP3, TROPN #### [facility] [address], [place] Albumin [Mass/Vol] 4.3 g/dL Normal 3.5-5.0 [facility] Comment on above: Performed By: #### B MP3, TROPN #### [facility] [address], [place] Hepatic Function Panelon Albumin [Mass/Vol] 4.3 g/dL 3.5 - 5.0 g/dL [facility] ALP (Bld) [Catalytic activity/Vol] 131 U/L [...] 1.1 mg/dL 0.2 - 1 .3 mg/dL [facility] Bilirubin.indirect [Mass/Vol] 0.0 mg/dL 0.0 - 0.3 mg/dL [facility] Free PSA/Total PSA [Mass fraction] 7.0 g/dL 6.3 - 8.2 g/dL [facility] Interpretation and review of laboratory results Abnormal [facility] Iron AND TIBCon 09-24-2021 Saturation 19 % Normal 15-50 [facility] Comment on above: Performed By: #### B MP3, TROPN #### [address] [address] Total Iron Binding Cap. 491 ug/dL Normal 261-497 [facility] Comment on above: Performed By: #### B MP3, TROPN #### [address] [address] Iron, Total 94 ug/dL Normal 49-181 [facility] Comment on above: Performed By: #### B MP3, TROPN #### [address] [address] [place] [address] Iron and TIBCon 09-24-2021 Iron [Mass/Vol] 94 ug/dL 49 - 181 ug/dL [facility] Sat 19 % 15 - 50 % [facility] TIBC 491 ug/dL 261 - 497 ug/dL [facility] Test Performed by [facility], [address] [place] [id number] [place] [address] [facility] LEGIONELLA AG, URINEon 09-24 LEGIONELLA AG, URINE Not detected Normal [facility] Comment on above: Performed By: #### C UA2, DRGA4 #### [address] [address] [place] [address] Lactic Acidon 09-24-2021 Lactate [Moles/Vol] 1.3 mmol/L Normal 0.7-2.0 [facility] Comment on above: Performed By: #### L ACT3 #### [address] Lactate [Moles/Vol] 1.3 mmol/L 0.7 - 2. 0 mmol/L [facility] Test Performed by [id number] [place] [address] LAB [facility] Lactate [Moles/Vol] 2.6 mmol/L Critically high 0.7-2.0 [facility] Comment on above: Performed By: #### L ACT3 #### [address] Interpretation and review of laboratory results Abnormal [facility] Lactate [Moles/Vol] 2.6 mmol/L Critically high 0.7 - 2.0 mmol/L [facility] Test Performed by [id number] [place] [address] LAB [facility] Lactate [Moles/Vol] 2.4 mmol/L Critically high 0.7-2.0 [facility] Comment on above: Performed By: #### B MP3, TROPN #### [address] Interpretation and review of laboratory results Abnormal [facility] Lactate [Moles/Vol] 2.4 mmol/L Critically high 0.7 - 2.0 mmol/L [facility] Test Performed by [id number] [place] [address] LAB [facility] Lactate [Moles/Vol] 3.3 mmol/L Critically high 0.7-2.0 [facility] Comment on above: Performed By: #### C UA2, DRGA4 #### [address] Interpretation and review of laboratory results Abnormal [facility] Lactate [Moles/Vol] 3.3 mmol/L Critically high 0.7 - 2.0 mmol/L [facility] Test Performed by [id number] [place] [address] LAB [facility] Lactate [Moles/Vol] 5.3 mmol/L Critically high 0.7-2.0 [facility] Comment on above: Performed By: #### B MP3, TROPN #### [address] Interpretation and review of laboratory results Abnormal [facility] Lactate [Moles/Vol] 5.3 mmol/L Critically high 0.7 - 2.0 mmol/L [facility] Test Performed by [id number] [place] [address] Legionella Antigen, Urineon 09-24-2021 LEGIONELLA ANTIGEN Not detected [facility] Lipaseon 09-24-2021 Lipase [Catalytic activity/Vol] 46 U/L Normal 23-300 [facility] Comment on above: Performed By: #### H EMDF, ETOH4, BMP3, TROPN, LIPA4 #### [facility] [address] [place] [address] Lipid Panelon 09-24-2021 Chol/HDL 5 Normal [facility] Comment on above: Result Comment: Ref Range: < 3 Low Risk for CHD 3-6 Mod Risk for CHD > 6 High Risk for CHD Performed By: #### B MP3, TROPN #### [address] Cholesterol in HDL [Mass/Vol] 39 mg/dL Low 40-60 [facility] Comment on above: Performed By: #### B MP3, TROPN #### [address] Low Density Lipoprotein 134 mg/dL Abnormal <100 [facility] Comment on above: Performed By: #### B MP3, TROPN #### [address] Triglyceride [Mass/Vol] 101 mg/dL Normal <150 [facility] Comment on above: Performed By: #### B MP3, TROPN #### [address] Cholesterol [Mass/Vol] 193 mg/dL Normal < 200 [facility] Comment on above: Performed By: #### B MP3, TROPN #### [address] [address] Cholesterol [Mass/Vol] 193 mg/dL <200 [facility] Cholesterol in HDL [Mass/Vol] 39 mg/dL [...] 09-24-2021 Magnesium [Mass/Vol] 1.1 mg/dL Low 1.6-2.3 [facility] Comment on above: Performed By: #### B MP3, TROPN #### [address] Magnesium [Mass/Vol] 1.1 mg/dL Low 1.6 - 2 .3 mg/dL [facility] No Panel Informationon 09-24 Test Performed by [id number] [place] [address] LAB [facility] Test Performed by [id number] [place] [address] LAB [facility] Interpretation and review of laboratory results Abnormal [facility] Test Performed by [id number] [place] [address] LAB [facility] Osmolalityon 09-24-2021 Serum Osmolality 285 mosm/kg 280 - 300 mosm/kg [facility] Test Performed by [id number] [place] [address] LAB [facility] Osmolality,Serumon Osmolality,Serum 285 mosm/kg Normal 280-[address] [address] Comment on above: Performed By: #### B MP3, TROPN #### [address] Respiratory Panel, Molecular , with COVID-19 (Restricted: peds pts or suitable admitted adults)on 09-24-2021 Respiratory Panel Molecular, with COVID NEGATIVE: No targets were detected by the [employer] Upper Respiratory Pathogens PCR Panel. _ Expected [...] Chlamydia pneumoniae, Mycoplasma pneumoniae. Method: Real-time PCR. [facility] Test Performed by [address] LAB [facility] STREP PNEUMO ANTIGEN, URINEo n 09-24-2021 STREP PNEUMO ANTIGEN, URINE Not detected Normal [facility] Comment on above: Performed By: #### C UA2, DRGA4 #### [address] [address] STREP PNEUMONIAE ANTIGENon 0 09-24-2021 STREP PNEUMONIAE ANTIGEN, URINE Not detected [facility] Troponinon 09-24-2021 Interpretation and review of laboratory results Abnormal [facility] Troponin I.cardiac [Mass/Vol] 9.570 ng/mL High 0.000 - 0.034 ng/mL [facility] Comment on above: . Test Performed by [address] [facility] Interpretation and review of laboratory results Abnormal [facility] Troponin I.cardiac [Mass/Vol] 11.400 ng/mL High 0.000 - 0.034 ng/mL [facility] Comment on above: . Test Performed by [address] [facility] Interpretation and review of laboratory results Abnormal [facility] Troponin I.cardiac [Mass/Vol] 11.000 ng/mL High 0.000 - 0.034 ng/mL [facility] Comment on above: . Test Performed by [address] [place] [address] [facility] Interpretation and review of laboratory results Abnormal [facility] Troponin I.cardiac [Mass/Vol] 0.459 ng/mL High 0.000 - 0.034 ng/mL [facility] Comment on above: . Test Performed by [address] [address] [facility] Troponin Ion 09-24-2021 Troponin I.cardiac [Mass/Vol] 9.570 ng/mL High 0.000-0.034 [facility] Comment on above: Result Comment: . Performed By: #### B MP3, TROPN #### [address] [address] Troponin I.cardiac [Mass/Vol] 11.400 ng/mL High 0.000-0.034 [facility] Comment on above: Result Comment: . Performed By: #### B MP3, TROPN #### [address] [address] Troponin I.cardiac [Mass/Vol] 11.000 ng/mL High 0.000-0.034 [facility] Comment on above: Result Comment: . Performed By: #### B MP3, TROPN #### [address] [address] Troponin I.cardiac [Mass/Vol] 0.459 ng/mL High 0.000-0.034 [facility] Comment on above: Result Comment: . Performed By: #### B MP3, TROPN #### [address] [address] Troponin I.cardiac [Mass/Vol] ng/mL Normal 0.000-0.034 [facility] Comment on above: Result Comment: . Performed By: #### H EMDF, ETOH4, BMP3, TROPN, LIPA4 #### [facility] [address] [place] [address] Urinalysison 09-24-2021 Appearance (U) Clear Clear NA [...] /[HPF] [facility] Comment on above: . Specific [place], Urine >1.030 Abnormal [facility] Comment on above: . Squam Epithel, UA 0-2 3 - 5 /[HPF] [facility] Comment on above: . Urobilinogen, Urine Normal Normal ( 0-1) mg/dL [facility] Comment on above: . WBC, UA Negative 0 - 5 /[HPF] [facility] Comment on above: . Test Performed by [facility], [address] [place] [id number] [facility] Urine Drug Screenon 09-25-19 22 Amphetamines, [...] confirmation under separate order. Test Performed by [id number] [place] [address] LAB [facility] VOLATILE PANEL, SERUMon Acetone, Serum Quant Not detected 0.0 - 2 0.0 mg/dL [facility] Comment on above: Toxic>20 Reporting Limit 5 mg/dL NOTE:These results are for medical treatment only. Analysis performed using non-forensic procedures. Ethanol [Mass/Vol] Not detected [facility] Comment on above: Reporting limit 0.01g/dL NOTE:These results are for medical treatment only. Analysis performed using non-forensic procedures. Isopropanol Not detected mg/dL [facility] Comment on above: Toxic>150 Reporting Limit 5 mg/dL NOTE:These results are for medical treatment only. Analysis performed using non-forensic procedures. METHANOL Not detected [facility] Comment on above: Toxic >20 mg/dL Reporting Limit 5 mg/dL NOTE:These results are for medical treatment only. Analysis performed using non-forensic procedures. Test Performed by [facility], [address] [place] [id number] [place] [address] LAB [facility] Vitamin B12on 09-24-2021 Cobalamin (Vitamin B12) [Mass/Vol] 307 pg/mL Normal 239-931 [facility] Comment on above: Performed By: #### B MP3, TROPN #### [address] [address] Cobalamin (Vitamin B12) [Mass/Vol] 307 pg/mL 239 - 931 pg/mL [facility] Test Performed by [address] [id number] [facility] Volatile Panel,Serumon 09-24 Acetone,Serum Not detected Normal 0.0-20.0 [facility] Comment on above: Result Comment: Toxi c>20 Reporting Limit 5 mg/dL NOTE:These results are for medical treatment only. Analysis performed using non-forensic procedures. Performed By: #### B MP3, TROPN #### [facility] [address], [place] Ethanol,Serum Not detected Normal [facility] Comment on above: Result Comment: Reporting limit 0.01g/dL NOTE:These results are for medical treatment only. Analysis performed using non-forensic procedures. Performed By: #### B MP3, TROPN #### [facility] [address], [place] Isopropanol,Serum Not detected Normal [facility] Comment on above: Result Comment: Toxi c>150 Reporting Limit 5 mg/dL NOTE:These results are for medical treatment only. Analysis performed using non-forensic procedures. Performed By: #### B MP3, TROPN #### [facility] [address], [place] Methanol,Serum Not detected Normal [facility] Comment on above: Result Comment: Toxic >20 mg/dL Reporting Limit 5 mg/dL NOTE:These results are for medical treatment only. Analysis performed using non-forensic procedures. Performed By: #### B MP3, TROPN #### [facility] [address], [place] Basic Metabolic Panelon 06-0 Anion gap [...] mg/dL [facility] Work Phone: EGFR IF NonAfrican British >90.0 >60 mL/min [facility] Work Phone: Comment [...] MDRD (S/P/Bld) [Vol rate/Area] mL/min/{1.73_m2} >60 mL/min [employer] Work Phone: [phone] Glucose [Mass/Vol] 156 mg/dL High 70 - 100 mg/dL [facility] Work Phone: [phone] Interpretation and review of laboratory results Abnormal [facility] Work Phone: [phone] Potassium [Moles/Vol] 3.4 mmol/L Low 3.5 - 5.1 mmol/L [facility] Work Phone: [phone] Sodium [Moles/Vol] 140 mmol/L 135 - 145 mmol/L [facility] Work Phone: [phone] Urea nitrogen (BldV) [Mass/Vol] 12 mg/dL 7 - 17 mg/dL [employer] Work Phone: CBC with Auto Differentialon 09-23-2021 Absolute Baso # 0.2 10*3/uL 0.0 - 0.2 10*3/uL [employer] Work Phone: [phone] Absolute Neut # 18.1 10*3/uL High 1.8 - 7.0 10*3/uL [facility] Work Phone: [phone] Basophils/100 WBC (Bld) 0.8 % 0.0 - 2.0 % [facility] Work Phone: [phone] Eosinophils (Bld) [#/Vol] 0.0 10*3/uL 0.0 - 0.5 10*3/uL [employer] Work Phone: Eosinophils/100 WBC (Bld) 0.0 % Low 1.0 - 6.0 % [employer] Work Phone: Granulocytes/100 WBC (Bld) 85.7 % High 40.0 - 80.0 % [employer] Work Phone: Hematocrit (Bld) [Volume fraction] 47.1 % 40.0 - 52.0 % [employer] Work Phone: Hemoglobin (Bld) [Mass/Vol] 16.0 g/dL 13.0 - 18.0 g/dL [employer] Work Phone: Interpretation and review of laboratory results Abnormal [employer] Work Phone: Lymphocytes (Bld) [#/Vol] 1.5 10*3/uL 1.0 - 4.3 10*3/uL [employer] Work Phone: Lymphocytes/100 WBC (Bld) 7.2 % Low 20.0 - 40.0 % [employer] Work Phone: MCH (RBC) [Entitic mass] 26.5 pg 26.0 - 34.0 pg [employer] Work Phone: MCHC (RBC) [Mass/Vol] 34.0 % 32.0 - 36.0 % [employer] Work Phone: MCV (RBC) [Entitic vol] 78.1 fL Low 80.0 - 98.0 fL [employer] Work Phone: Monocytes (Bld) [#/Vol] 1.2 10*3/uL High 0.0 - 0.8 10*3/uL [employer] Work Phone: Monocytes/100 WBC (Bld) 5.8 % 2.0 - 10.0 % [employer] Work Phone: Platelet distribution width (Bld) [Ratio] 19.1 % High 11.5 - 14.5 % [employer] Phone: Platelet mean volume (Bld) [Entitic vol] 8.5 fL 7.4 - 12.4 fL [employer] Work Phone: [phone] Comment on above: MPV is a calculated measurement using platelet volume ratio. Platelets (Bld) [#/Vol] 639 10*3/uL High 140 - 440 10*3/uL [employer] Work Phone: [phone] RBC (Bld) [#/Vol] 6.03 10*6/uL High 4.40 - 5.9 0 10*6/uL [employer] Work Phone: WBC (Bld) [#/Vol] 21.1 10*3/uL High 3.6 - 10.7 10*3/uL [employer] Work Phone: [phone] Test Performed by [facility], [address] [place] [address] LAB [employer] Work Phone: EKG 12 Lead - Chest Painon 0 09-23-[address] 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: 2011Q : 1980 Requested By: MIQUEL PORTER Order Number: [id number] Reading MD: Miquel Porter Measurements Intervals [place] Rate: 119 P: 53 PA: 125 QRS: 65 QRSD: 97 T: 92 QT: 337 QTc: 475 Interpretive Statements Sinus tachycardia Probable left ventricular hypertrophy Inferior infarct, acute (RCA) ST elevation, consider lateral injury Compared to ECG 04/13/2021 12:56:56 Myocardial infarct finding now present ST (T wave) deviation now present Sinus rhythm no longer present Electronically Signed On 09-23-2021 23:38:59 EDT by Miquel Porter [facility] Miquel Porter M D - 09/23/[address] 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 Work Phone: [phone] [facility] Work Phone: [phone] Ethanolon 09-23-2021 Ethanol Lvl <0.010 0.000 - 0.010 g/dL [facility] Work Phone: Comment on above: NOTE: This result is for medical treatment only. Analysis performed using non-forensic procedures. Lipaseon 09-23-2021 Lipase [Catalytic activity/Vol] 46 U/L 23 - 300 U/L [facility] Work Phone: [phone] No Panel Informationon 09-23 Add On Accepted [facility] Comment on above: Specimen available & acceptable for analysis. Test Performed by [facility] [employer] [facility] [place] [address] LAB [facility] Test Performed by [facility], [facility] [place] [address] [facility] Work Phone: [phone] Troponin x1on 09-23-2021 Troponin I.cardiac [Mass/Vol] ng/mL 0.000 - 0.034 ng/mL [facility] Work Phone: Comment on above: . Test Performed by [facility] card[employer], [address] [facility] Work Phone: XR CHEST PORTABLEon 09-24-19 Patient Name: EL SMITH Diagnostic Radiology ACCESSION EXAM DATE/TIME PROCEDURE ORDERING PROVIDER [id number] 09/23/2021 23:19 EDT CR Chest Portable MD PORTER VIJAY CPT code 51186 Reason For Exam (CR Chest Portable) chest [...] Transcribed Date and Time: 09/23/2021 11:41 [facility] Fransisco Zafar MD - 09/23/2021 Patient Name: EL SMITH Diagnostic Radiology ACCESSION EXAM DATE/TIME PROCEDURE ORDERING PROVIDER [id number] 09/23/2021 23:19 EDT CR Chest Portable MD PORTER VIJAY CPT code 28407 Reason For Exam (CR Chest Portable) chest [...] WILLIAM Transcribed Date and Time: 09/23/2021 11:41 [facility] Work Phone: Radiology Study observation (narrative) [facility] Work Phone: XR CHEST PORTABLEOrdered By: Fransisco Martin on 09-23-2021 [facility] Work Phone: Add on test from HISon 04-17 Add on test from HIS Accepted Normal [facility] Comment on above: Result Comment: Spec imen available & acceptable for analysis. Performed By: #### A DDON #### [facility] [address] [place] [address] Basic Metabolic Panelon 12-3 Calcium [Mass/Vol] 8.7 mg/dL Normal 8.4-10.4 [facility] Comment on above: Performed By: #### A DDON #### [facility] [address] [place] [address] Glucose [Mass/Vol] 118 mg/dL High 70-100 [facility] Comment on above: Performed By: #### A DDON #### [facility] [address] [place] [address] Urea nitrogen [Mass/Vol] 12 mg/dL Normal 7-17 [facility] Comment on above: Performed By: #### A DDON #### [facility] [address] [place] [address] Anion gap [Moles/Vol] 12 mmol/L Normal 3-13 [facility] Comment on above: Performed By: #### A DDON #### [facility] [address] [place] [address] CO2 [Moles/Vol] 21 mmol/L Low 22-30 [facility] Comment on above: Performed By: #### A DDON #### [facility] [address] [place] [address] Creatinine [Mass/Vol] 0.63 mg/dL Normal 0.52-1.25 [facility] Comment on above: Performed By: #### A DDON #### [facility] [address] [place] [address] eGFR OTHER > 90.0 Normal >60 [facility] Comment on above: Result Comment: KDIG O [...] secretion. Performed By: #### A DDON #### [facility] [address] [place] [address] GFR/1.73 sq M.predicted among blacks MDRD (S/P/Bld) [Vol rate/Area] mL/min/{1.73_m2} Normal >60 [facility] Comment on above: Performed By: #### A DDON #### [facility] [address] [place] [address] Potassium [Moles/Vol] 3.1 mmol/L Low 3.5-5.1 [facility] Comment on above: Performed By: #### A DDON #### [facility] [address] [place] [address] Sodium [Moles/Vol] 138 mmol/L Normal 135-145 [facility] Comment on above: Performed By: #### A DDON #### [facility] [address] [place] [address] Chloride [Moles/Vol] 104 mmol/L Normal 98-107 [facility] Comment on above: Performed By: #### A DDON #### [facility] [address] [place] [address] Ethanol Serum/Plasmaon 04-17 Ethanol-Serum/Plasma 0.190 g/dL High 0.000-0.010 [facility] Comment on above: Result Comment: NOTE : This result is for medical treatment only. Analysis performed using non-forensic procedures. Performed By: #### A DDON #### [facility] [address] [place] [address] Hemogram w/ Autodiffon 04-17 Erythrocyte distribution width (RBC) [Ratio] 14.7 % High 11.5-14.5 [facility] Comment on above: Performed By: #### A DDON #### [facility] [address] [place] [address] Hematocrit (Bld) [Volume fraction] 46.0 % Normal 40.0-52.0 [facility] Comment on above: Performed By: #### A DDON #### [facility] [address] [place] [address] Hemoglobin (Bld) [Mass/Vol] 15.5 g/dL Normal 13.0-18.0 [facility] Comment on above: Performed By: #### A DDON #### [facility] [address] [place] [address] MCH (RBC) [Entitic mass] 28.0 pg Normal 26.0-34.0 [facility] Comment on above: Performed By: #### A DDON #### [facility] [address] [place] [address] MCHC 33.7 % Normal 32.0-36.0 [facility] Comment on above: Performed By: #### A DDON #### [facility] [address] [place] [address] MCV (RBC) [Entitic vol] 83.1 fL Normal 80.0-98.0 [facility] Comment on above: Performed By: #### A DDON #### [facility] [address] [place] [address] Platelet mean volume (Bld) [Entitic vol] 6.4 fL Low 7.4-10.4 [facility] Comment on above: Performed By: #### A DDON #### [facility] [address] [place] [address] Platelets (Bld) [#/Vol] 631 10*3/uL High 140-440 [facility] Comment on above: Performed By: #### A DDON #### [facility] [address] [place] [address] RBC (Bld) [#/Vol] 5.54 10*6/uL Normal 4.40-5.90 [facility] Comment on above: Performed By: #### A DDON #### [facility] [address] [place] [address] WBC (Bld) [#/Vol] 10.3 10*3/uL Normal 3.6-10.7 [facility] Comment on above: Performed By: #### A DDON #### [facility] [address] [place] [address] Hepatic Functionon 1 ALP [Catalytic activity/Vol] 123 U/L Normal 38-126 [facility] Comment on above: Performed By: #### A DDON #### [facility] [address] [place] [address] ALT [Catalytic activity/Vol] 18 U/L Normal 0-49 [facility] Comment on above: Result Comment: The ALT test is performed by an updated assay method. Please note that the reference intervals have been changed and are now sex specific. Performed By: #### A DDON #### [facility] [address] [place] [address] AST [Catalytic activity/Vol] 45 U/L Normal 15-46 [facility] Comment on above: Performed By: #### A DDON #### [facility] [address] [place] [address] Bilirubin [Mass/Vol] 0.7 mg/dL Normal 0.2-1.3 [facility] Comment on above: Performed By: #### A DDON #### [facility] [address] [place] [address] Bilirubin.indirect [Mass/Vol] 0.0 mg/dL Normal 0.0-0.3 [facility] Comment on above: Performed By: #### A DDON #### [facility] [address] [place] [address] Protein [Mass/Vol] 6.8 g/dL Normal 6.3-8.2 [facility] Comment on above: Performed By: #### A DDON #### [facility] [address] [place] [address] Albumin [Mass/Vol] 3.8 g/dL Normal 3.5-5.0 [facility] Comment on above: Performed By: #### A DDON #### [facility] [address] [place] [address] Lipaseon 04-17-2021 Lipase [Catalytic activity/Vol] 108 U/L Normal 23-300 [facility] Comment on above: Performed By: #### L FT3, ETOH4, MDIFF, LIPA4, HEMDF, BMP3 ####[facility] [place] [address] Manual Diffon 04-17-2021 Abs Lymph Cnt 2.8 10*3/uL Normal 1.1-4.5 [facility] Comment on above: Performed By: #### A DDON #### [facility] [address] [place] [address] Abs Monocyte Cnt 0.8 10*3/uL Normal 0.2-1.1 [facility] Comment on above: Performed By: #### A DDON #### [facility] [address] [place] [address] Abs Neutrophile Cnt 6.5 10*3/uL Normal 2.2-8.2 [facility] Comment on above: Performed By: #### A DDON #### [facility] [address] [place] [address] Atypical Lymphocytes 7 % Abnormal <1 [facility] Comment on above: Performed By: #### A DDON #### [facility] [address] [place] [address] Bands 1 % Normal 0-3 [facility] Comment on above: Performed By: #### A DDON #### [facility] [address] [place] [address] Lymphocytes 20 % Normal 20-40 [facility] Comment on above: Performed By: #### A DDON #### [facility] [address] [place] [address] Metamyelocytes 1 % Abnormal <1 [facility] Comment on above: Performed By: #### A DDON #### [facility] [address] [place] [address] Monocytes 8 % Normal 2-10 [facility] Comment on above: Performed By: #### A DDON #### [facility] [address] [place] [address] Myelocytes 1 % Abnormal <1 [facility] Comment on above: Performed By: #### A DDON #### [facility] [address] [place] [address] RBC Morphology Normal Normal [facility] Comment on above: Performed By: #### A DDON #### [facility] [address] [place] [address] Seg Neutrophils 62 % Normal 40-80 [facility] Comment on above: Performed By: #### A DDON #### [facility] [address] [place] [address] Abs Baso Cnt 0.0 10*3/uL Normal 0.0-0.2 [facility] Comment on above: Performed By: #### A DDON #### [facility] [address] [place] [address] Abs Eosin Cnt 0.0 10*3/uL Normal 0.0-0.5 [facility] Comment on above: Performed By: #### A DDON #### [facility] [address] [place] [address] Basophils 0 % Normal 0-2 [facility] Comment on above: Performed By: #### A DDON #### [facility] [address] [place] [address] Cells counted 100 Normal [facility] Comment on above: Performed By: #### A DDON #### [facility] [address] [place] [address] Eosinophils 0 % Low 1-6 [facility] Comment on above: Performed By: #### A DDON #### [facility] [address] [place] [address] CT Abdomen and Pelvis W cont rast Luca 04-13-2021 Patient Name: EL SMITH Computed Tomography ACCESSION EXAM DATE/TIME PROCEDURE ORDERING PROVIDER [id number] 04/13/2021 12:[address] Abdomen/Pelvis w/ IV [id number] -NESHEIM, PRINCE Contrast (IV Onl CPT code 63506 Q9967 Reason For Exam (CT Abdomen/Pelvis w/ [...] JASON Transcribed Date and Time: 04/13/2021 2:20 [facility] Ge Sifuentes MD - 04/13/2021 Patient Name: EL SMITH Computed Tomography ACCESSION EXAM DATE/TIME PROCEDURE ORDERING PROVIDER [id number] 04/13/2021 12:[address] Abdomen/Pelvis w/ IV [id number] -JOHANNAKHUSHBOO PRINCE Contrast (IV Onl CPT code 15951 Q9967 Reason For Exam (CT Abdomen/Pelvis w/ [...] [facility] Work Phone: Radiology Study observation (narrative) [facility] Work Phone: CT Abdomen and Pelvis W cont rast IVOrdered By: Ge Sifuentes on 04-13-2021 [facility] Work Phone: CT Abdomen/Pelvis w/ Contras ton 04-13-2021 CT Abdomen/Pelvis w/ Contrast Patient Name: EL SMITH Computed Tomography ACCESSION EXAM DATE/TIME PROCEDURE ORDERING PROVIDER [id number] 04/13/2021 12:[address] Abdomen/Pelvis w/ IV [id number] -NESHEIM, PRINCE Contrast (IV Onl CPT code 40433 Q9967 Reason For Exam (CT Abdomen/Pelvis w/ [...] Transcribed Date and Time: 04/13/2021 2:20 Normal [facility] Comp Metabolic Panelon 04-13 ALT [Catalytic activity/Vol] 30 U/L Normal 0-49 [facility] Comment on above: Result Comment: The ALT test is performed by an updated assay method. Please note that the reference intervals have been changed and are now sex specific. Performed By: #### A DDON #### [facility] [address] [place] [address] Calcium [Mass/Vol] 9.0 mg/dL Normal 8.4-10.4 [facility] Comment on above: Performed By: #### A DDON #### [facility] [address] [place] [address] ALP [Catalytic activity/Vol] 110 U/L Normal 38-126 [facility] Comment on above: Performed By: #### A DDON #### [facility] [address] [place] [address] Anion gap [Moles/Vol] 7 mmol/L Normal 3-13 [facility] Comment on above: Performed By: #### A DDON #### [facility] [address] [place] [address] AST [Catalytic activity/Vol] 31 U/L Normal 15-46 [facility] Comment on above: Performed By: #### A DDON #### [facility] [address] [place] [address] Bilirubin [Mass/Vol] 0.4 mg/dL Normal 0.2-1.3 [facility] Comment on above: Performed By: #### A DDON #### [facility] [address] [place] [address] CO2 [Moles/Vol] 27 mmol/L Normal 22-30 [facility] Comment on above: Performed By: #### A DDON #### [facility] [address] [place] [address] Creatinine [Mass/Vol] 0.72 mg/dL Normal 0.52-1.25 [facility] Comment on above: Performed By: #### A DDON #### [facility] [address] [place] [address] eGFR OTHER > 90.0 Normal >60 [facility] Comment on above: Result Comment: KDIG O [...] secretion. Performed By: #### A DDON #### [facility] [address] [place] [address] GFR/1.73 sq M.predicted among blacks MDRD (S/P/Bld) [Vol rate/Area] mL/min/{1.73_m2} Normal >60 [facility] Comment on above: Performed By: #### A DDON #### [facility] [address] [place] [address] Glucose [Mass/Vol] 113 mg/dL High 70-100 [facility] Comment on above: Performed By: #### A DDON #### [facility] [address] [place] [address] Protein [Mass/Vol] 6.9 g/dL Normal 6.3-8.2 [facility] Comment on above: Performed By: #### A DDON #### [facility] [address] [place] [address] Urea nitrogen [Mass/Vol] 14 mg/dL Normal 7-17 [facility] Comment on above: Performed By: #### A DDON #### [facility] [address] [place] [address] Potassium [Moles/Vol] 3.1 mmol/L Low 3.5-5.1 [facility] Comment on above: Performed By: #### A DDON #### [facility] [address] [place] [address] Sodium [Moles/Vol] 141 mmol/L Normal 135-145 [facility] Comment on above: Performed By: #### A DDON #### [facility] [address] [place] [address] Albumin [Mass/Vol] 4.0 g/dL Normal 3.5-5.0 [facility] Comment on above: Performed By: #### A DDON #### [facility] [address] [place] [address] Chloride [Moles/Vol] 107 mmol/L Normal 98-107 [facility] Comment on above: Performed By: #### A DDON #### [facility] [address] [place] [address] Comprehensive Metabolic Pane [facility] 04-13-2021 Albumin [Mass/Vol] 4.0 g/dL 3.5 - 5.0 g/dL [facility] ALP (Bld) [Catalytic activity/Vol] 110 U/L 38 - 126 U/L [facility] ALT [Catalytic activity/Vol] 30 U/L 0 - 49 U/L [facility] Comment on above: The ALT test is [...] - 1.25 mg/dL [facility] EGFR IF NonAfrican British >90.0 >60 mL/min [facility] Comment on above: KDIGO guidelines pro [...] 113 mg/dL High 70 - 100 mg/dL [facility] Interpretation and review of laboratory results Abnormal [facility] Potassium [Moles/Vol] 3.1 mmol/L Low 3.5 - 5.1 mmol/L [facility] Sodium [Moles/Vol] 141 mmol/L 135 - 145 mmol/L [facility] Urea nitrogen (BldV) [Mass/Vol] 14 mg/dL 7 - 17 mg/dL [facility] Hemogramon 04-13-2021 Erythrocyte distribution width (RBC) [Ratio] 14.6 % High 11.5-14.5 [facility] Comment on above: Performed By: #### A DDON #### [facility] [address] [place] [address] Hematocrit (Bld) [Volume fraction] 47.2 % Normal 40.0-52.0 [facility] Comment on above: Performed By: #### A DDON #### [facility] [address] [place] [address] Hemoglobin (Bld) [Mass/Vol] 16.1 g/dL Normal 13.0-18.0 [facility] Comment on above: Performed By: #### A DDON #### [facility] [address] [place] [address] MCH (RBC) [Entitic mass] 28.5 pg Normal 26.0-34.0 [facility] Comment on above: Performed By: #### A DDON #### [facility] [address] [place] [address] MCHC 34.1 % Normal 32.0-36.0 [facility] Comment on above: Performed By: #### A DDON #### [facility] [address] [place] [address] MCV (RBC) [Entitic vol] 83.5 fL Normal 80.0-98.0 [facility] Comment on above: Performed By: #### A DDON #### [facility] [address] [place] [address] Platelet mean volume (Bld) [Entitic vol] 6.6 fL Low 7.4-10.4 [facility] Comment on above: Performed By: #### A DDON #### [facility] [address] [place] [address] Platelets (Bld) [#/Vol] 731 10*3/uL High 140-440 [facility] Comment on above: Performed By: #### A DDON #### [facility] [address] [place] [address] RBC (Bld) [#/Vol] 5.66 10*6/uL Normal 4.40-5.90 [facility] Comment on above: Performed By: #### A DDON #### [facility] [address] [place] [address] WBC (Bld) [#/Vol] 10.0 10*3/uL Normal 3.6-10.7 [facility] Comment on above: Performed By: #### A DDON #### [facility] [address] [place] [address] Hemogram (CBC)on 04-13-2021 Hematocrit (Bld) [Volume fraction] 47.2 % 40.0 - 52.0 % [facility] Hemoglobin.gastrointest inal spec 1 Ql (Stl) 16.1 g/dL 13.0 - 18.0 g/dL [facility] Interpretation and review of laboratory results [...] [#/Vol] 10.0 10*3/uL 3.6 - 10.7 10*3/uL [facility] Test Performed by [facility], [address] [facility] Lipaseon 04-13-2021 Lipase [Catalytic activity/Vol] 176 U/L Normal 23-300 [facility] Comment on above: Performed By: #### A DDON #### [facility] [address] [place] [address] Lipase [Catalytic activity/Vol] 176 U/L 23 - 300 U/L [facility] No Panel Informationon 04-13 Test Performed by [facility], [address] , [address] LAB [facility] Troponin Ion 04-13-2021 Troponin I.cardiac [Mass/Vol] ng/mL Normal 0.000-0.034 [facility] Comment on above: . Result Comment: . Performed By: #### A DDON #### [facility] [address] [place] [address] Troponin x1on 04-13-2021 Test Performed by [facility], [address] , [place], [place] [id number] [place] [address] LAB [facility] CR Spine Lumbosacral 2 or 3 Viewson 12-28-2020 CR Spine Lumbosacral 2 or 3 Views Patient Name: EL SMITH Diagnostic Radiology ACCESSION EXAM DATE/TIME PROCEDURE ORDERING PROVIDER [id number] 12/28/2020 09:36 EDT CR Spine Lumbosacral 2 MD CHRISTIE, HOMERO R. or 3 Views CPT code 97507 Reason For Exam (CR Spine Lumbosacral 2 [...] Transcribed Date and Time: 12/28/2020 10:27 Normal [facility] XR LUMBAR SPINE (2-3 VIEWS)O rdered By: Marquise Nair on 12-28-2020 Patient Name: EL SMITH Diagnostic Radiology ACCESSION EXAM DATE/TIME PROCEDURE ORDERING PROVIDER [id number] 12/28/2020 09:36 EDT CR Spine Lumbosacral 2 MD NAIR DOUGALAS R. or 3 Views CPT code 08522 Reason For Exam (CR Spine Lumbosacral 2 [...] Time: 12/28/2020 10:27 [facility] Work Phone: [facility] From [facility] - 12/28/2020 10:27 AM EDT Patient Name: EL SMITH Diagnostic Radiology ACCESSION EXAM DATE/TIME PROCEDURE ORDERING PROVIDER [id number] 12/28/2020 09:36 EDT CR Spine Lumbosacral 2 MD NAIR DOUGALAS R. or 3 Views CPT code 98914 Reason For Exam (CR Spine Lumbosacral 2 [...] )on 12-02-2020 BUN/CRE 36.1 RATIO High 10-20 [facility] Comment on above: Performed By: #### L 500.2500, L100.0100 #### [facility] [address] [place], [address] CA,Total 8.8 mg/dL Normal 8.5-10.1 [facility] Comment on above: Performed By: #### L 500.2500, L100.0100 #### [facility] [address] [place], [address] Chloride [Moles/Vol] 103 mmol/L Normal 98-107 [facility] Comment on above: Performed By: #### L 500.2500, L100.0100 #### [facility] [address] [place], [address] CO2 [Moles/Vol] 26.0 mmol/L Normal 21.0-32.0 [facility] Comment on above: Performed By: #### L 500.2500, L100.0100 #### [facility] [address] [place], [address] Creatinine [Mass/Vol] 0.69 mg/dL Low 0.70-1.30 [facility] Comment on above: Result Comment: The validity of the calculated GFR GFRAA in patients over 70 years has not been determined. Clinical correlation is essential. Performed By: #### L 500.2500, L100.0100 #### [facility] [address] [place], [address] ECRCL 148.41 ml/min Normal [facility] Comment on above: Performed By: #### L 500.2500, L100.0100 #### [facility] [address] [place], [address] EST GFR - AA 164 mL/min Normal >60 [facility] Comment on above: Result Comment: Afri can British GFR Calc Performed By: #### L 500.2500, L100.0100 #### [facility] [address] [place], [address] GAP 8 Normal 5-15 [facility] Comment on above: Performed By: #### L 500.2500, L100.0100 #### [facility] [address] [place], [address] GFR/1.73 sq M.predicted among non-blacks MDRD (S/P/Bld) [Vol rate/Area] 135 mL/min/{1.73_m2} Normal >60 [facility] Comment on above: Result Comment: Non- GFR Calc Performed By: #### L 500.2500, L100.0100 #### [facility] [address] [place], [address] Glucose [Mass/Vol] 97 mg/dL Normal 74-106 [facility] Comment on above: Result Comment: Christina almanza note revised GLUCOSE reference range effective 2017. Performed By: #### L 500.2500, L100.0100 #### [facility] [address] [place], [address] Potassium [Moles/Vol] 4.2 mmol/L Normal 3.5-5.1 [facility] Comment on above: Result Comment: Slig ht Hemolysis, Result may be falsely increased. Performed By: #### L 500.2500, L100.0100 #### [facility] [address] [place], [address] Sodium [Moles/Vol] 137 mmol/L Normal 136-145 [facility] Comment on above: Performed By: #### L 500.2500, L100.0100 #### [facility] [address] [place], [address] Urea nitrogen [Mass/Vol] 25 mg/dL High 7-18 [facility] Comment on above: Performed By: #### L 500.2500, L100.0100 #### [facility] [address] [place], [address] CBC W/Diff, Automatedon - Absolute Lymph 2.79 X10 3/uL Normal 0.83-4.51 [facility] Comment on above: Performed By: #### L 500.2500, L100.0100 #### [facility] [address] [place], [address] Absolute Neut 6.9 X10 3/uL Normal 2.0-7.7 [facility] Comment on above: Performed By: #### L 500.2500, L100.0100 #### [facility] [address] [place], [address] Basophils/100 WBC (Bld) 0.6 % Normal 0-1 [facility] Comment on above: Performed By: #### L 500.2500, L100.0100 #### [facility] [address] [place], [address] Eosinophils/100 WBC (Bld) 0.3 % Normal 0-5 [facility] Comment on above: Performed By: #### L 500.2500, L100.0100 #### [facility] [address] [place], [address] Erythrocyte distribution width (RBC) [Ratio] 14.6 % Normal 11.6-14.6 [facility] Comment on above: Performed By: #### L 500.2500, L100.0100 #### [facility] [address] [place], [address] Hematocrit (Bld) [Volume fraction] 46.3 % Normal 40-54 [facility] Comment on above: Performed By: #### L 500.2500, L100.0100 #### [facility] [address] [place], [address] Hemoglobin (Bld) [Mass/Vol] 15.3 g/dL Normal 13.0-16.5 [facility] Comment on above: Performed By: #### L 500.2500, L100.0100 #### [facility] [address] [place], [address] IG% 0.500 Normal 0.0-0.9 [facility] Comment on above: Result Comment: IG% - Immature Granulocytes (promyelocytes, myelocytes and metamyelocytes) > 1% indicates that a LEFT SHIFT is Present. Performed By: #### L 500.2500, L100.0100 #### [facility] [address] [place], [address] Lymphocytes/100 WBC (Bld) 25.6 % Normal 19-41 [facility] Comment on above: Performed By: #### L 500.2500, L100.0100 #### [facility] [address] [place], [address] MCH (RBC) [Entitic mass] 29.7 pg Normal 27.0-32.0 [facility] Comment on above: Performed By: #### L 500.2500, L100.0100 #### [facility] [address] [place], [address] MCHC (RBC) [Mass/Vol] 33.0 g/dL Normal 32-36 [facility] Comment on above: Performed By: #### L 500.2500, L100.0100 #### [facility] [address] [place], [address] MCV (RBC) [Entitic vol] 89.7 fL Normal 80-94 [facility] Comment on above: Performed By: #### L 500.2500, L100.0100 #### [facility] [address] [place], [address] Monocytes/100 WBC (Bld) 9.4 % Normal 0-10 [facility] Comment on above: Performed By: #### L 500.2500, L100.0100 #### [facility] [address] [place], [address] Neutrophils/100 WBC (Bld) 63.6 % Normal 47-70 [facility] Comment on above: Performed By: #### L 500.2500, L100.0100 #### [facility] [address] [place], [address] Nucleated RBC (Bld) [#/Vol] 0 10*3/uL Normal 0-5 [facility] Comment on above: Performed By: #### L 500.2500, L100.0100 #### [facility] [address] [place], [address] Platelet mean volume (Bld) [Entitic vol] 8.5 fL Normal 6.2-12.0 [facility] Comment on above: Performed By: #### L 500.2500, L100.0100 #### [facility] [address] [place], [address] Platelets (Bld) [#/Vol] 386 10*3/uL Normal 150-450 [facility] Comment on above: Performed By: #### L 500.2500, L100.0100 #### [facility] [address] [place], [address] RBC (Bld) [#/Vol] 5.16 10*6/uL Normal 4.6-6.2 [facility] Comment on above: Performed By: #### L 500.2500, L100.0100 #### [facility] [address] [place], [address] RDW SD 47.8 fl High 35.1-43.9 [facility] Comment on above: Performed By: #### L 500.2500, L100.0100 #### [facility] [address] [place], [address] WBC (Bld) [#/Vol] 10.9 10*3/uL Normal 4.4-11.0 [facility] Comment on above: Performed By: #### L 500.2500, L100.0100 #### [facility] [address] [place], [address] Alcohol, Blood (Medical)-Ser [facility] 12-01-2020 SERUM ETOH 241.0 mg/dL Normal [facility] Comment on above: Result Comment: The serum:whole blood ethanol ratio is approximately 1.14 and varies slightly with hematocrit. Medical Alcohol reference interval and critical value in non-tolerant individuals; 50 - 100 Impairment 100 Intoxication 100 - 250 Severe Poisoning 250 - 400 Deep/possible fatal coma Performed By: #### L 505.5000, L100.0100, L300.3900, L501.9100, L500.4050 ####[facility] [address] [place], [address] CBC W/Diff, Automatedon - PATH REV Reviewed Normal [facility] Comment on above: Performed By: #### L 505.5000, L100.0100, L300.3900, L501.9100, L500.4050 #### [facility] [address] [place], [address] CPK Total, Creatine Kinaseon 12-01-2020 CPK TOTAL 44 U/L Normal 39-308 [facility] Comment on above: Order Comment: ADDED TO ER BLOOD Performed By: #### L 501.3620, L501.5200 #### [facility] [address] [place], [address] Comprehensive Metabolic Prof ilon 12-01-2020 Albumin [Mass/Vol] 4.2 g/dL Normal 3.2-5.0 [facility] Comment on above: Performed By: #### L 505.5000, L100.0100, L300.3900, L501.9100, L500.4050 ####[facility] [address] [place], [address] Albumin/Globulin [Mass ratio] 1.0 {ratio} Normal 0.9-2.4 [facility] Comment on above: Performed By: #### L 505.5000, L100.0100, L300.3900, L501.9100, L500.4050 ####[facility] [address] [place], [address] ALK P 111 U/L Normal 45-117 [facility] Comment on above: Performed By: #### L 505.5000, L100.0100, L300.3900, L501.9100, L500.4050 ####[facility] [address] [place], [address] ALT [Catalytic activity/Vol] 49 U/L Normal 16-61 [facility] Comment on above: Performed By: #### L 505.5000, L100.0100, L300.3900, L501.9100, L500.4050 ####[facility] [address] [place], [address] AST [Catalytic activity/Vol] 19 U/L Normal 15-37 [facility] Comment on above: Performed By: #### L 505.5000, L100.0100, L300.3900, L501.9100, L500.4050 ####[facility] [address] [place], [address] Bilirubin [Mass/Vol] 0.40 mg/dL Normal 0.20-1.00 [facility] Comment on above: Result Comment: For patients on eltrombopag therapy, use of Dimension Gypsum TBIL is not recommended. Performed By: #### L 505.5000, L100.0100, L300.3900, L501.9100, L500.4050 ####[facility] [address] [place], [address] BUN/CRE 21.4 RATIO High 10-20 [facility] Comment on above: Performed By: #### L 505.5000, L100.0100, L300.3900, L501.9100, L500.4050 ####[facility] [address] [place], [address] CA,Total 9.3 mg/dL Normal 8.5-10.1 [facility] Comment on above: Performed By: #### L 505.5000, L100.0100, L300.3900, L501.9100, L500.4050 ####[facility] [address] [place], [address] Chloride [Moles/Vol] 104 mmol/L Normal 98-107 [facility] Comment on above: Performed By: #### L 505.5000, L100.0100, L300.3900, L501.9100, L500.4050 ####[facility] [address] [place], [address] CO2 [Moles/Vol] 25.0 mmol/L Normal 21.0-32.0 [facility] Comment on above: Performed By: #### L 505.5000, L100.0100, L300.3900, L501.9100, L500.4050 ####[facility] [address] [place], [address] Creatinine [Mass/Vol] 0.80 mg/dL Normal 0.70-1.30 [facility] Comment on above: Result Comment: The validity of the calculated GFR GFRAA in patients over 70 years has not been determined. Clinical correlation is essential. Performed By: #### L 505.5000, L100.0100, L300.3900, L501.9100, L500.4050 ####[facility] [address] [place], [address] ECRCL 127.26 ml/min Normal [facility] Comment on above: Performed By: #### L 505.5000, L100.0100, L300.3900, L501.9100, L500.4050 ####[facility] [address] [place], [address] EST GFR - AA 139 mL/min Normal >60 [facility] Comment on above: Result Comment: Afri can British GFR Calc Performed By: #### L 505.5000, L100.0100, L300.3900, L501.9100, L500.4050 ####[facility] [address] [place], [address] GAP 12 Normal 5-15 [facility] Comment on above: Performed By: #### L 505.5000, L100.0100, L300.3900, L501.9100, L500.4050 ####[facility] [address] [place], [address] GFR/1.73 sq M.predicted among non-blacks MDRD (S/P/Bld) [Vol rate/Area] 115 mL/min/{1.73_m2} Normal >60 [facility] Comment on above: Result Comment: Non- GFR Calc Performed By: #### L 505.5000, L100.0100, L300.3900, L501.9100, L500.4050 ####[facility] [address] [place], [address] Globulin (S) [Mass/Vol] 4.2 g/dL Normal 2.2-4.2 [facility] Comment on above: Performed By: #### L 505.5000, L100.0100, L300.3900, L501.9100, L500.4050 ####[facility] [address] [place], [address] Glucose [Mass/Vol] 128 mg/dL High 74-106 [facility] Comment on above: Result Comment: Fast ing Glucose result greater than or equal to 126 mg/dL suggests DIABETES MELLITUS per A.D.A. criteria. Please note revised GLUCOSE reference range effective 2017. Performed By: #### L 505.5000, L100.0100, L300.3900, L501.9100, L500.4050 ####[facility] [address] [place], [address] Potassium [Moles/Vol] 3.5 mmol/L Normal 3.5-5.1 [facility] Comment on above: Performed By: #### L 505.5000, L100.0100, L300.3900, L501.9100, L500.4050 ####[facility] [address] [place], [address] Sodium [Moles/Vol] 141 mmol/L Normal 136-145 [facility] Comment on above: Performed By: #### L 505.5000, L100.0100, L300.3900, L501.9100, L500.4050 ####[facility] [address] [place], [address] T PROT 8.4 g/dL High 6.4-8.2 [facility] Comment on above: Performed By: #### L 505.5000, L100.0100, L300.3900, L501.9100, L500.4050 ####[facility] [address] [place], [address] Urea nitrogen [Mass/Vol] 17 mg/dL Normal 7-18 [facility] Comment on above: Performed By: #### L 505.5000, L100.0100, L300.3900, L501.9100, L500.4050 ####[facility] [address] [facility] [place], [address] Emergency Department Summary on 12-01-2020 Emergency Department Summary [facility] Medical Records Department [address] [facility] [place] [address] Emergency Department Summary 11/30/20 MR#: [id number] Acct: [id number] Name: EL SMITH Rep #: [id number] : 1980 40 From: Monica Huff DO PCP: Care Physician,No Primary Status:ADM IN Location: [place] [address] HPI History of Present Illness Chief Complaint: [...] [facility] for evaluation. Reportedly [facility] was [facility] where they did an MRI but [...] vomiting. Last reported drink was this morning [facility] Medical History (Updated 11/30/20 @ 22:33 by [...] RDW Co (more content not included)... Normal [facility] H AND P Exam - Hospital[facility] 12-01-2020 H&P Exam - Hospitalist [facility] Medical Records Department [address] [place] [address] H P Exam - Hospitalist 11/30/20 2251 MR#: [id number] Acct: [id number] Name: EL SMITH Rep #: [id number] : 1980 40 From: Evan Elizondo MD PCP: Care Physician,No Primary Status:ADM IN Location: [id number] HPI - General General Date of Admission: [...] fever or chills. He was recently at [facility]. They did an MRI but he left the hospital without paperwork. Patient has been drinking heavily since teenage. Denies seizure, hallucinations or delusion. [facility] Medical History Alcohol abuse Anxiety Chronic pain [...] (Auto) 70.7 H, Lymph % (Auto) 20.0, Barber % (Auto) 8.3, Eos % (Auto) 0.1, [...] Screen NEGAT (more content not included)... Normal [facility] Magnesiumon 12-01-2020 Magnesium [Mass/Vol] 2.0 mg/dL Normal 1.6-2.6 [facility] Comment on above: Order Comment: ADDED TO ER BLOOD Performed By: #### L 501.3620, L501.5200 #### [facility] [address] [place], [address] Prothrombin Time w/INRon INR Coag (PPP) [Relative time] 0.9 {INR} Normal [facility] Comment on above: Performed By: #### L 505.5000, L100.0100, L300.3900, L501.9100, L500.4050 #### [facility] [address] [place], [address] PT Coag (PPP) [Time] 11.6 s Low 11.7-14.9 [facility] Comment on above: Performed By: #### L 505.5000, L100.0100, L300.3900, L501.9100, L500.4050 #### [facility] [address] [place], [address] Urine Drug Screen (VISTA)on 11-30-2020 AMPHETAMINES Negative Normal <1000 ng/mL [facility] Comment on above: Performed By: #### L 505.5000, L100.0100, L300.3900, L501.9100, L500.4050 #### [facility] [address] [place], [address] BARBITIURATES Negative Normal < 200 ng/mL [facility] Comment on above: Performed By: #### L 505.5000, L100.0100, L300.3900, L501.9100, L500.4050 #### [facility] [address] [place], [address] BENZODIAZIPINE Negative Normal < 200 ng/mL [facility] Comment on above: Performed By: #### L 505.5000, L100.0100, L300.3900, L501.9100, L500.4050 #### [facility] [address] [place], [address] COCAINE Negative Normal < 300 ng/mL [facility] Comment on above: Performed By: #### L 505.5000, L100.0100, L300.3900, L501.9100, L500.4050 #### [facility] [address] [place], [address] ECSTACY Negative Normal < 500 ng/mL [facility] Comment on above: Performed By: #### L 505.5000, L100.0100, L300.3900, L501.9100, L500.4050 #### [facility] [address] [place], [place], [facility] METHADONE Negative Normal < 300 ng/mL [facility] Comment on above: Performed By: #### L 505.5000, L100.0100, L300.3900, L501.9100, L500.4050 #### [facility] [address] [place], [address] OPIATES Positive Abnormal < 300 ng/mL [facility] Comment on above: Performed By: #### L 505.5000, L100.0100, L300.3900, L501.9100, L500.4050 #### [facility] [address] [place], [address] PCP Negative Normal < 25 ng/mL [facility] Comment on above: Performed By: #### L 505.5000, L100.0100, L300.3900, L501.9100, L500.4050 #### [facility] [address] [place], [address] THC Positive Abnormal < 50 ng/mL [facility] Comment on above: Performed By: #### L 505.5000, L100.0100, L300.3900, L501.9100, L500.4050 #### [facility] [address] [place], [address] VISTA UDS PH 5 Normal [facility] Comment on above: Performed By: #### L 505.5000, L100.0100, L300.3900, L501.9100, L500.4050 #### [facility] [address] [place], [address] ED Provider Noteon ED Provider Note Emergency Department Encounter [facility] EMERGENCY DEPT Patient: El Smith : 1980 Date of Evaluation: 11/25/2020 ED Provider: Ramesh Grimaldo MD Chief Complaint Chief Complaint Patient presents with ? Back Pain Lower right sided back pain radiating down right leg x 3 days. No OTC medications for pain. GRAND TRAVERSE I wore appropriate PPE for the entirety of this encounter. Does this patient come from an ECF, SNF, Rehab, Snf or other Congregate setting: no (If yes [...] otherwise acutely negative except as in the GRAND TRAVERSE. Past History Past Medical History: Diagnosis Date [...] Gatherings with Friends and Family: ? Attends [employer] Services: ? Active Member of Clubs or [...] medicine, patient (more content not included)... Normal [facility] CBCon 07-05-2020 Erythrocyte distribution width (RBC) [Ratio] 16.0 % High 11.5 - 14.5 % [employer] Phone: [phone] Hematocrit (Bld) [Volume fraction] 46.1 % 40.0 - 52.0 % [employer] Phone: [phone] Hemoglobin (Bld) [Mass/Vol] 15.4 g/dL 13.0 - 18.0 g/dL [employer] Phone: [phone] Interpretation and review of laboratory results Abnormal [employer] Phone: [phone] MCH (RBC) [Entitic mass] 30.5 pg 26.0 - 34.0 pg [employer] Phone: [phone] MCHC (RBC) [Mass/Vol] 33.4 % 32.0 - 36.0 % [employer] Phone: [phone] MCV (RBC) [Entitic vol] 91.1 fL 80.0 - 98.0 fL [employer] Phone: [phone] Platelet mean volume (Bld) [Entitic vol] 7.5 fL 7.4 - 10.4 fL [facility] Work Phone: 1 Platelets (Bld) [#/Vol] 464 10*3/uL High 140 - 440 10*3/uL [employer] Work Phone: 1 RBC (Bld) [#/Vol] 5.05 10*6/uL 4.40 - 5.9 0 10*6/uL [employer] Work Phone: 1 WBC (Bld) [#/Vol] 13.6 10*3/uL High 3.6 - 10.7 10*3/uL [employer] Work Phone: 1 Test Performed by [facility], [facility] [address] [place], [place] [address] [employer] Work Phone: Comprehensive Metabolic Pane eduardo 07-05-2020 Albumin [Mass/Vol] 4.2 g/dL 3.5 - 5.0 g/dL [employer] Work Phone: 1 ALP [Catalytic activity/Vol] 91 U/L 38 - 126 U/L [facility] Work Phone: ALT [Catalytic activity/Vol] 33 U/L 0 - 49 U/L [employer] Work Phone: Comment on above: The ALT test is perf ormed by an updated assay method. Please note that the reference intervals have been changed and are now sex specific. Anion gap [Moles/Vol] 13 mmol/L 3 - 13 mmol/L [employer] Work Phone: 1 AST [Catalytic activity/Vol] 46 U/L 15 - 46 U/L [facility] Work Phone: Bilirubin Ql (U) 1.2 mg/dL 0.2 - 1.3 mg/dL [employer] Work Phone: Calcium [Mass/Vol] 9.4 mg/dL 8.4 - 10. 4 mg/dL [employer] Work Phone: Chloride [Moles/Vol] 105 mmol/L 98 - 10 7 mmol/L [employer] Work Phone: CO2 [Moles/Vol] 19 mmol/L Low 22 - 30 mmol/L [employer] Work Phone: [phone] Creatinine [Mass/Vol] 0.92 mg/dL 0.52 - 1.25 mg/dL [facility] Work Phone: [phone] EGFR IF NonAfrican British >90.0 >60 mL/min [facility] Work Phone: [phone] Comment on above: KDIGO guidelines pro vide [...] MDRD (S/P/Bld) [Vol rate/Area] mL/min/{1.73_m2} >60 mL/min [facility] Work Phone: [phone] Glucose [Mass/Vol] 126 mg/dL High 70 - 100 mg/dL [facility] Work Phone: [phone] Interpretation and review of laboratory results Abnormal [facility] Work Phone: [phone] Potassium [Moles/Vol] 4.3 mmol/L 3.5 - 5.1 mmol/L [facility] Work Phone: [phone] Protein [Mass/Vol] 7.3 g/dL 6.3 - 8.2 g/dL [facility] Work Phone: [phone] Sodium [Moles/Vol] 137 mmol/L 135 - 145 mmol/L [facility] Work Phone: [phone] Urea nitrogen [Mass/Vol] 24 mg/dL High 7 - 20 mg/dL [facility] Work Phone: [phone] Ethanolon 07-05-2020 Ethanol Lvl <0.010 0.000 - 0.010 g/dL [employer] Work Phone: Comment on above: NOTE: This result is for medical treatment only. Analysis performed using non-forensic procedures. Otheron 07-05-2020 Test Performed by [employer], [address] [place], [place] [address] [employer] Work Phone: Basic Metabolic Panel w/ Ref jojo to MGon 07-04-2020 Anion gap [Moles/Vol] 13 mmol/L 3 - 13 mmol/L [employer] Work Phone: Calcium [Mass/Vol] 9.3 mg/dL 8.4 - 10. 4 mg/dL [employer] Work Phone: Chloride [Moles/Vol] 98 mmol/L 98 - 10 7 mmol/L [employer] Work Phone: CO2 [Moles/Vol] 22 mmol/L 22 - 30 mmol/L [employer] Work Phone: Creatinine [Mass/Vol] 0.7 mg/dL 0.52 - 1.25 mg/dL [employer] Work Phone: EGFR IF NonAfrican British >90.0 >60 mL/min [employer] Work Phone: Comment on above: KDIGO guidelines [...] MDRD (S/P/Bld) [Vol rate/Area] mL/min/{1.73_m2} >60 mL/min [facility] Work Phone: [phone] Glucose [Mass/Vol] 103 mg/dL High 70 - 100 mg/dL [facility] Work Phone: [phone] Interpretation and review of laboratory results Abnormal [facility] Work Phone: [phone] Potassium [Moles/Vol] 3.8 mmol/L 3.5 - 5.1 mmol/L [facility] Work Phone: [phone] Sodium [Moles/Vol] 133 mmol/L Low 135 - 145 mmol/L [facility] Work Phone: [phone] Urea nitrogen [Mass/Vol] 16 mg/dL 7 - 20 mg/dL [facility] Work Phone: [phone] C-Reactive Proteinon 021 CRP [Mass/Vol] mg/L 0.0 - 6.0 mg/L [facility] Work Phone: [phone] Comment on above: . CBCon 07-04-2020 Erythrocyte distribution width (RBC) [Ratio] 16.1 % High 11.5 - 14.5 % [facility] Work Phone: [phone] Hematocrit (Bld) [Volume fraction] 46.4 % 40.0 - 52.0 % [facility] Work Phone: [phone] Hemoglobin (Bld) [Mass/Vol] 16.0 g/dL 13.0 - 18.0 g/dL [facility] [facility] Work Phone: [phone] Interpretation and review of laboratory results Abnormal [facility] Work Phone: [phone] MCH (RBC) [Entitic mass] 31.1 pg 26.0 - 34.[address] Work Phone: [phone] MCHC (RBC) [Mass/Vol] 34.6 % 32.0 - 36.0 % [facility] Work Phone: [phone] MCV (RBC) [Entitic vol] 89.9 fL 80.0 - 98.[address] [facility] Work Phone: [phone] Platelet mean volume (Bld) [Entitic vol] 7.1 fL Low 7.4 - 10.[address] [facility] Work Phone: [phone] Platelets (Bld) [#/Vol] 461 10*3/uL High 140 - 440 10*3/uL [employer] Work Phone: [phone] RBC (Bld) [#/Vol] 5.16 10*6/uL 4.40 - 5.9 0 10*6/uL [employer] Work Phone: [phone] WBC (Bld) [#/Vol] 10.0 10*3/uL 3.6 - 10.7 10*3/uL [employer] Work Phone: [phone] Test Performed by [employer], [address] [place], [place] [address] [employer] Work Phone: [phone] MRI LUMBAR SPINE WO CONTRAST on 07-04-2020 [place], [employer] Incoming Radiology Results From [facility] - 07/04/2020 3:04 PM EDT Patient Name: EL SMITH Magnetic Resonance Imaging ACCESSION EXAM DATE/TIME PROCEDURE ORDERING PROVIDER [id number] 07/04/2020 14:52 EDT MRI Spine Lumbar w/o 5640 -AILYN, MONICA Contrast CPT code 10385 Reason For Exam (MRI Spine Lumbar w/o [...] Imaging ACCESSION EXAM DATE/TIME PROCEDURE ORDERING PROVIDER [id number] 07/04/2020 14:52 EDT MRI Spine Lumbar w/o 5640 -AILYNMONICA Cruz Contrast CPT code 37045 Reason For Exam (MRI Spine Lumbar w/o [...] KRIKOR Transcribed Date and Time: 07/04/2020 3:03 [employer] Work Phone: Otheron 07-04-2020 Test Performed by [facility], [address] [facility] [place] [address] [employer] Work Phone: Basic Metabolic Panelon 06-16 Anion gap [Moles/Vol] 13 mmol/L 3 - 13 mmol/L [employer] Work Phone: Calcium [Mass/Vol] 9.1 mg/dL 8.4 - 10. 4 mg/dL [employer] Work Phone: Chloride [Moles/Vol] 105 mmol/L 98 - 10 7 mmol/L [employer] Work Phone: CO2 [Moles/Vol] 24 mmol/L 22 - 30 mmol/L [facility] Work Phone: [phone] Creatinine [Mass/Vol] 0.8 mg/dL 0.52 - 1.25 mg/dL [facility] Work Phone: [phone] EGFR IF NonAfrican British >90.0 >60 mL/min [facility] Work Phone: Comment on above: KDIGO guidelines [...] MDRD (S/P/Bld) [Vol rate/Area] mL/min/{1.73_m2} >60 mL/min [facility] Work Phone: [phone] Glucose [Mass/Vol] 122 mg/dL High 70 - 100 mg/dL [facility] Work Phone: [phone] Potassium [Moles/Vol] 4.1 mmol/L 3.5 - 5.1 mmol/L [facility] Work Phone: [phone] Sodium [Moles/Vol] 143 mmol/L 135 - 145 mmol/L [facility] Work Phone: [phone] Urea nitrogen [Mass/Vol] 14 mg/dL 7 - 20 mg/dL [facility] Work Phone: [phone] CKon 07-03-2020 Total CK 78 U/L 30 - 170 U/L [facility] Work Phone: [phone] COVID-19on 07-03-2020 SARS-CoV-[address] [facility] Work Phone: Comment on above: Not Detected. Expected Result: Not Detected _ Real-time, RT-PCR performed on the [employer] System by the [employer] [facility]. Negative results do not preclude SARS-CoV-2 infection and should not be used as the sole basis for treatment or other patient management decisions. This assay was developed by [employer] and distributed under an Emergency Use Authorization (EUA) granted by the FDA for the qualitative detection of SARS-CoV-2 nucleic acid. Test Performed by [employer], [address] [place] [id number] COVID-19, Rapidon 07-03-2020 Sodium [Moles/Vol] see below [employer] Work Phone: Comment on above: Not Detected Expected Result: Not Detected _ Isothermal nucleic acid amplification performed on the [employer] System by the [facility] Laboratory Negative results do not preclude SARS-CoV-2 infection and should not be used as the sole basis for treatment or other patient management decisions. This assay was developed by [employer] and distributed under an Emergency Use Authorization (EUA) granted by the FDA for the qualitative detection of SARS-CoV-2 nucleic acid. Provider and patient fact sheets can be found at https://www.fda.gov/media/320307/download and https://www.fda.gov/media/411154/download. Test Performed by [employer], [address] [facility] [facility] , [place], [place] [address] [employer] Work Phone: Ethanolon 07-03-2020 Ethanol Lvl 0.299 g/dL High 0.000 - 0.010 g/dL [employer] Work Phone: Comment on above: NOTE: This result is for medical treatment only. Analysis performed using non-forensic procedures. Hemogram (CBC) w/Auto Diffon 07-03-2020 Absolute Baso # 0.1 10*3/uL 0.0 - 0.2 10*3/uL [employer] Work Phone: Absolute Neut # 7.0 10*3/uL 1.8 - 7.0 10*3/uL [employer] Work Phone: [phone] Basophils/100 WBC (Bld) 0.6 % 0.0 - 2.0 % [facility] Work Phone: 1 Eosinophils (Bld) [#/Vol] 0.0 10*3/uL 0.0 - 0.5 10*3/uL [employer] Work Phone: 22 Eosinophils/100 WBC (Bld) 0.3 % Low 1.0 - 6.0 % [employer] Work Phone: Erythrocyte distribution width (RBC) [Ratio] 16.4 % High 11.5 - 14.5 % [employer] Work Phone: 22 Granulocytes/100 WBC (Bld) 60.0 % 40.0 - 80.0 % [employer] Work Phone: Hematocrit (Bld) [Volume fraction] 51.0 % 40.0 - 52.0 % [employer] Work Phone: Hemoglobin (Bld) [Mass/Vol] 17.4 g/dL 13.0 - 18.0 g/dL [employer] Work Phone: Interpretation and review of laboratory results Abnormal [employer] Work Phone: Lymphocytes (Bld) [#/Vol] 3.8 10*3/uL 1.0 - 4.3 10*3/uL [employer] Work Phone: Lymphocytes/100 WBC (Bld) 32.5 % 20.0 - 40.0 % [employer] Work Phone: MCH (RBC) [Entitic mass] 30.6 pg 26.0 - 34.0 pg [employer] Work Phone: MCHC (RBC) [Mass/Vol] 34.2 % 32.0 - 36.0 % [employer] Work Phone: MCV (RBC) [Entitic vol] 89.6 fL 80.0 - 98.0 fL [employer] Work Phone: Monocytes (Bld) [#/Vol] 0.8 10*3/uL 0.0 - 0.8 10*3/uL [employer] Work Phone: 22 Monocytes/100 WBC (Bld) 6.6 % 2.0 - 10.0 % [employer] Work Phone: Platelet mean volume (Bld) [Entitic vol] 7.1 fL Low 7.4 - 10.4 fL [employer] Work Phone: Platelets (Bld) [#/Vol] 619 10*3/uL High 140 - 440 10*3/uL [employer] Work Phone: RBC (Bld) [#/Vol] 5.69 10*6/uL 4.40 - 5.9 0 10*6/uL [employer] Work Phone: WBC (Bld) [#/Vol] 11.6 10*3/uL High 3.6 - 10.7 10*3/uL [employer] Work Phone: Test Performed by [facility], [facility] [address] , [place] [id number] [employer] Work Phone: Hepatic Function Panelon Albumin [Mass/Vol] 4.8 g/dL 3.5 - 5.0 g/dL [employer] Work Phone: ALP [Catalytic activity/Vol] 108 U/L 38 - 126 U/L [employer] Work Phone: ALT [Catalytic activity/Vol] 45 U/L 0 - 49 U/L [employer] Work Phone: Comment on above: The ALT test is perf ormed by an updated assay method. Please note that the reference intervals have been changed and are now sex specific. AST [Catalytic activity/Vol] 60 U/L High 15 - 46 U/L [employer] Work Phone: Bilirubin Ql (U) 0.8 mg/dL 0.2 - 1.3 mg/dL [employer] Work Phone: Bilirubin.direct [Mass/Vol] 0.0 mg/dL 0.0 - 0.3 mg/dL [employer] Work Phone: Protein [Mass/Vol] 7.8 g/dL 6.3 - 8.2 g/dL [employer] Work Phone: Otheron 07-03-2020 Interpretation and review of laboratory results Abnormal [facility] Work Phone: 1) Test Performed by [employer], [address] , [place], [place] [address] [employer] Work Phone: 1 Sedimentation Rateon 021 Sed Rate 10 mm/h 0 - 10 mm/h [employer] Work Phone: 1 Test Performed by [employer], [address], [place], [place] [address] [employer] Work Phone: 1 Urinalysison 07-03-2020 Appearance (U) Clear Clear NA [employer] Work Phone: 1 Comment on above: . Bacteria, UA Few (1-5) Abnormal Negative /[HPF] [employer] Work Phone: 1 Comment on above: . Bilirubin Urine Negative Negative mg/dL [facility] Work Phone: 1 Comment on above: . Color (U) YELLOW Lt. Yellow NA [facility] Work Phone: Comment on above: . Glucose, Ur Normal Normal (<70) mg/dL [facility] Work Phone: 1 Comment on above: . Interpretation and review of laboratory results Abnormal [facility] Work Phone: 1 Ketones Ql (U) Trace Abnormal Negative mg/dL [facility] Work Phone: 1 Comment on above: . LEUKOCYTES, UA Negative Negative Soren/uL [facility] Work Phone: Comment on above: . Nitrite, Urine Negative Negative NA [facility] Work Phone: Comment on above: . Occult Blood,Urine 0.06 mg/dL Abnormal Negative [facility] Work Phone: 1 Comment on above: . pH (U) 6.0 [pH] [facility] Work Phone: Comment on above: . Protein (U) [Mass/Vol] 600 mg/dL Abnormal Negative [employer] Work Phone: Comment on above: . RBC (U) [#/Vol] 0-2 0 - 2 /[HPF] [facility] Work Phone: Comment on above: . Specific [place], Urine 1.018 S [facility] Work Phone: [phone] Comment on above: . Squam Epithel, UA 0-2 3 - 5 /[HPF] [facility] Work Phone: [phone] Comment on above: . Urobilinogen, Urine Normal Normal ( 0-1) mg/dL [facility] Work Phone: [phone] Comment on above: . Volume 8-[address] [facility] Work Phone: [phone] Comment on above: . WBC, UA 0-2 0 - 5 /[HPF] [facility] Work Phone: [phone] Comment on above: . Test Performed by [employer], [address] , [place], [place] [address] Work Phone: [phone] Urine Drug Screenon 07-04-19 21 Amphetamines, urine Negative [facility] Work Phone: [phone] Barbiturates, Ur Negative [facility] Work Phone: 1 Benzodiazepine Ur Qual Negative [employer] Work Phone: [phone] Cocaine Metabolites, Ur Negative S [facility] Work Phone: [phone] Methadone, Urine Negative [facility] Work Phone: [phone] Opiates, Urine Positive [facility] Work Phone: [phone] Oxycodone Screen, Ur Positive [facility] Work Phone: [phone] PCP, Urine Negative [facility] Work Phone: [phone] Comment on above: The expected value f [...] confirmation under separate order. Test Performed by [employer], [address], [place] [id number] [place] [address] Work Phone: XR HIP RIGHT (2-3 VIEWS)on 0 06-06-2020 Patient Name: EL SMITH Diagnostic Radiology ACCESSION EXAM DATE/TIME PROCEDURE ORDERING PROVIDER [id number] 06/06/2020 10:02 EST CR Hip w/ Pelvis 2 or 3 MD SANFORD DARRELL Views Right n ALBERT CPT code 45192 Reason For Exam (CR Hip w/ Pelvis [...] LAURA Transcribed Date and Time: 06/06/2020 11:00 [facility] Work Phone: [facility], [facility] Incoming Radiology Results From [facility] - 06/06/2020 11:00 AM EST Patient Name: EL SMITH Diagnostic Radiology ACCESSION EXAM DATE/TIME PROCEDURE ORDERING PROVIDER [id number] 06/06/2020 10:02 EST CR Hip w/ Pelvis 2 or 3 MD SANFORD DARRELL Views Right n ALBERT CPT code 06844 Reason For Exam (CR Hip w/ Pelvis [...] Panelon 12-1 Anion gap [Moles/Vol] 17 mmol/L [place], [place] Calcium [Mass/Vol] 9.8 mg/dL 8.4 - 10. 4 mg/dL [place] Chloride [Moles/Vol] 96 mmol/L Low 98 - 10 7 mmol/L [place] CO2 [Moles/Vol] 26 mmol/L 22 - 30 mmol/L [place] Creatinine [Mass/Vol] 0.96 mg/dL 0.52 - 1.25 mg/dL [place] EGFR IF NonAfrican British >90.0 >60 mL/min [place] Comment on above: KDIGO guidelines pro [...] serum creatinine in children is the Bedside Ifnch equation. It is less accurate in patients with extremes of muscle mass, restriction of dietary protein, ingestion of creatine, extra-renal metabolism of creatinine, or treatment with medications that affect renal tubular creatinine secretion. GFR/1.73 sq M predicted among blacks MDRD (S/P/Bld) [Vol rate/Area] mL/min/{1.73_m2} >60 mL/min [place] Glucose [Mass/Vol] 143 mg/dL High 70 - 100 mg/dL [place] Interpretation and review of laboratory results Abnormal [place] Potassium [Moles/Vol] 3.3 mmol/L Low 3.5 - 5.1 mmol/L [place] Sodium [Moles/Vol] 138 mmol/L 135 - 145 mmol/L [place] Urea nitrogen [Mass/Vol] 9 mg/dL 7 - 20 mg/dL [place] Hemogram (CBC) w/Auto Diffon 04-05-2020 Erythrocyte distribution width (RBC) [Ratio] 16.0 % High 11.5 - 14.5 % [place] Hematocrit (Bld) [Volume fraction] 59.9 % High 40 - 52 % [place] Hemoglobin (Bld) [Mass/Vol] 20.3 g/dL High 13 - 18 g/dL [place] MCH (RBC) [Entitic mass] 30.0 pg 26 - 34 pg [place] MCHC (RBC) [Mass/Vol] 33.9 % 32 - 36 % [place] MCV (RBC) [Entitic vol] 88.5 fL 80 - 98 fL [place], [place] Platelet mean volume (Bld) [Entitic vol] 7.0 fL Low 7.4 - 10.4 fL [place] Platelets (Bld) [#/Vol] 591 10*3/uL High 140 - 440 10*3/uL [place] RBC (Bld) [#/Vol] 6.77 10*6/uL High 4.4 - 5.9 10*6/uL [place] WBC (Bld) [#/Vol] 18.7 10*3/uL High 3.6 - 10.7 10*3/uL [place] Hepatic Function Panelon Albumin [Mass/Vol] 5.0 g/dL 3.5 - 5 g/dL [place] ALP [Catalytic activity/Vol] 139 U/L High 38 - 126 U/L [place] ALT [Catalytic activity/Vol] 77 U/L High 0 - 49 U/L [place] Comment on above: The ALT test is perf ormed by an updated assay method. Please note that the reference intervals have been changed and are now sex specific. AST [Catalytic activity/Vol] 115 U/L High 15 - 46 U/L [place] Bilirubin Ql (U) 1.3 mg/dL 0.2 - 1.3 mg/dL [place] Bilirubin.direct [Mass/Vol] 0.0 mg/dL 0 - 0.3 mg/dL [place] Interpretation and review of laboratory results Abnormal [place] Protein [Mass/Vol] 8.6 g/dL High 6.3 - 8.2 g/dL [place] Test Performed by [facility], [address] , [address] Lactic Acid, Plasmaon 2019 Interpretation and review of laboratory results Abnormal [place] Lactate [Moles/Vol] 3.5 mmol/L Critically high 0.7 - 2 mmol/L [place] Test Performed by [facility], [facility] [address] , [address] Lipaseon 04-05-2020 Lipase [Catalytic activity/Vol] 58 U/L 23 - 300 U/L [place], [place] Manual Differentialon 2019 Absolute Baso # 0.0 10*3/uL 0 - 0.2 10*3/uL [place] Absolute Eos # 0.0 10*3/uL 0 - 0.5 10*3/uL [place] Absolute Lymph # 1.9 10*3/uL 1.1 - 4.5 10*3/uL [place] Absolute Barber # 1.5 10*3/uL High 0.2 - 1.1 10*3/uL [place] Absolute Neut # 15.3 10*3/uL High 2.2 - 8.2 10*3/uL [place] Bands 0 % 0 - 3 % [place] Basophils 0 % 0 - 2 % [facility] SARAN Eosinophils 0 % Low 1 - 6 % [facility], [place] Lymphocytes 10 % Low 20 - 40 % [facility], SARAN Monocytes 8 % 2 - 10 % [facility], [place] RBC morphology finding Nom (Bld) Normal [place], [place] Seg Neutrophils 82 % High 40 - 80 % [facility], [place] TOTAL CELLS COUNTED 100 [place] Otheron 04-05-2020 Interpretation and review of laboratory results Abnormal [place] Test Performed by [facility], [address] , [address] Test Performed by [facility], [address] , [address] Troponin x1on 04-05-2020 Troponin I.cardiac [Mass/Vol] ng/mL 0 - 0.034 ng/mL [place] Comment on above: . Test Performed by [facility], [address] , [address] XR CHEST PORTABLEon 04-05-20 20 [facility], [facility] Incoming Radiology Results From [facility] - 04/05/2020 9:02 AM EST Patient Name: EL SMIHT Diagnostic Radiology ACCESSION EXAM DATE/TIME PROCEDURE ORDERING PROVIDER [id number] 04/05/2020 08:51 EST CR Chest Portable MD OROZCO DAVID C. CPT code 39947 Reason For Exam (CR Chest Portable) chest [...] NELSON Transcribed Date and Time: 04/05/2020 9:02 [place], [place] Patient Name: EL SMITH Diagnostic Radiology ACCESSION EXAM DATE/TIME PROCEDURE ORDERING PROVIDER [id number] 04/05/2020 08:51 EST CR Chest Portable MD ERNESTO, NAILA Vargas CPT code 69056 Reason For Exam (CR Chest Portable) chest [...] NELSON Transcribed Date and Time: 04/05/2020 9:02 [place], [place] Comprehensive Metabolic Pane eduardo 12-14-2019 Albumin [Mass/Vol] 4.4 g/dL Normal 3.9-4.9 [facility] Comment on above: Performed By: #### C MP #### [address] [address] ALP [Catalytic activity/Vol] 135 U/L High 38-113 [facility] Comment on above: Performed By: #### C MP #### [address] [address] ALT [Catalytic activity/Vol] 31 U/L Normal 10-54 [facility] Comment on above: Performed By: #### C MP #### [facility] [address] [place], [place] [address] Anion gap [Moles/Vol] 17 mmol/L Normal 9-18 [facility] Comment on above: Performed By: #### C MP #### [address] [address] AST [Catalytic activity/Vol] 28 U/L Normal 14-40 [facility] Comment on above: Performed By: #### C MP #### [facility] [address] [place], [place] [address] Bilirubin [Mass/Vol] 0.4 mg/dL Normal 0.2-1.3 [facility] Comment on above: Performed By: #### C MP #### [facility] [address] [place], [place] [address] Calcium [Mass/Vol] 9.3 mg/dL Normal 8.5-10.2 [facility] Comment on above: Performed By: #### C MP #### [facility] [address] [place], [place] [address] Chloride [Moles/Vol] 103 mmol/L Normal 97-105 [facility] Comment on above: Performed By: #### C MP #### [facility] [address] [place], [place] [address] CO2 Blood 23 mmol/L Normal 22-30 [facility] Comment on above: Performed By: #### C MP #### [facility] [address] [place], [place] [address] Creatinine [Mass/Vol] 0.71 mg/dL Low 0.73-1.22 [facility] Comment on above: Performed By: #### C MP #### [facility] [address] [place], [place] [address] Glucose [Mass/Vol] 120 mg/dL High 74-99 [facility] Comment on above: Result Comment: The [place] Diabetes Association (ADA) provides guidance for cutoff [...] Standards of Medical Care in Diabetes 2016; [place] Diabetes Association. Diabetes Care. 2016;39(Suppl 1). Performed By: #### C MP #### [facility] [address] [place], [place] [address] Potassium [Moles/Vol] 2.9 mmol/L Low 3.7-5.1 [facility] Comment on above: Performed By: #### C MP #### [facility] [address] [place], [place] [address] Protein [Mass/Vol] 7.4 g/dL Normal 6.3-8.0 [facility] Comment on above: Performed By: #### C MP #### [facility] [address] [place], [place] [address] Sodium [Moles/Vol] 143 mmol/L Normal 136-144 [facility] Comment on above: Performed By: #### C MP #### [facility] [address] [place], [place] [address] Urea nitrogen [Mass/Vol] 4 mg/dL Low 9-24 [facility] Comment on above: Performed By: #### C MP #### [facility] [address] [place], [place] [address] ED NOTEon 12-14-2019 ED NOTE HNO ID: [id number] Author: Chhaya (Rn) DESIREE Stewart Service: Emergency Medicine Author Type: Registered Nurse Type: ED Notes Filed: 12/14/2019 9:41 PM Note Text: Pt demanding to leave and demanding his IV be removed. Pt states he is going to another hospital. Yolanda Mckeon to speak with pt about low potassium level. Pt states he is going to [facility]. Normal [facility] ED Triage Noteon 12-14-2019 ED Triage Note HNO ID: [id number] Author: Eliana Gutierrez) AJIT Galarza Service: Emergency Medicine Author Type: Physician Asset Card Clerk Type: ED Triage Notes Filed: 12/14/2019 6:30 [...] lipase Urinalysis SIGNATURE: Eliana Galarza PA-C Normal [facility] Hemogram/Diffon 12-14-2019 Abs Immature Grans 0.07 thou/cmm High 0.00-0.05 [facility] Comment on above: Performed By: #### C BCD1 #### [facility] [address] [place] [address] Abs Neut (ANC) 8.88 thou/cmm High 1.78-5.38 [facility] Comment on above: Performed By: #### C BCD1 #### [facility] [address] [place] [address] Abs. Baso 0.15 thou/cmm High 0.01-0.08 [facility] Comment on above: Performed By: #### C BCD1 #### [facility] [address] [place] [address] Abs. Barber 0.96 thou/cmm High 0.30-0.82 [facility] Comment on above: Performed By: #### C BCD1 #### [facility] [address] [place] [address] Basophils/100 WBC (Bld) 1.1 % Normal A [facility] Comment on above: Performed By: #### C BCD1 #### [facility] [address] [place] [address] Eosinophils (Bld) [#/Vol] 0.03 thou/cmm Low 0.04-0.54 [facility] Comment on above: Performed By: #### C BCD1 #### [facility] [address] [place] [address] Eosinophils/100 WBC (Bld) 0.2 % Normal [facility] Comment on above: Performed By: #### C BCD1 #### [facility] [address] [place] [address] Erythrocyte distribution width (RBC) [Ratio] 14.3 % Normal 11.6-14.4 [facility] Comment on above: Performed By: #### C BCD1 #### [place] [id number] Hematocrit (Bld) [Volume fraction] 52.7 % High 40.1-51.0 [facility] Comment on above: Performed By: #### C BCD1 #### [facility] [address] [place] [address] Hemoglobin (Bld) [Mass/Vol] 18.4 g/dL High 13.7-17.5 [facility] Comment on above: Performed By: #### C BCD1 #### [facility] [address] [place] [address] Immature Grans 0.50 % Normal [facility] Comment on above: Performed By: #### C BCD1 #### [facility] [address] [place] [address] Lymphocytes (Bld) [#/Vol] 3.23 thou/cmm High 0.84-2.85 [facility] Comment on above: Performed By: #### C BCD1 #### [facility] [address] [place] [address] Lymphocytes/100 WBC (Bld) 24.3 % Normal [facility] Comment on above: Performed By: #### C BCD1 #### [facility] [address] [place] [address] MCH (RBC) [Entitic mass] 31.2 pg Normal 25.7-32.2 [facility] Comment on above: Performed By: #### C BCD1 #### [facility] [address] [place] [address] MCHC (RBC) [Mass/Vol] 34.9 % Normal 32.3-36.5 [facility] Comment on above: Performed By: #### C BCD1 #### [facility] [address] [place] [address] MCV (RBC) [Entitic vol] 89.5 fL Normal 83.2-95.6 [facility] Comment on above: Performed By: #### C BCD1 #### [place] [address] Monocytes/100 WBC (Bld) 7.2 % Normal [facility] Comment on above: Performed By: #### C BCD1 #### [facility] [address] [place] [address] Platelet mean volume (Bld) [Entitic vol] 8.4 fL Low 8.7-12.0 [facility] Comment on above: Performed By: #### C BCD1 #### [facility] [address] [place] [address] Platelets (Bld) [#/Vol] 549 thou/cmm High 141-365 [facility] Comment on above: Performed By: #### C BCD1 #### [facility] [address] [place] [address] RBC (Bld) [#/Vol] 5.89 mil/cmm Normal 4.63-6.08 [facility] Comment on above: Performed By: #### C BCD1 #### [place] [address] RDW SD 46.4 fl High 36.1-45.8 [facility] Comment on above: Performed By: #### C BCD1 #### [facility] [address] [place] [address] Seg Neutrophil 66.7 % Normal [facility] Comment on above: Performed By: #### C BCD1 #### [facility] [address] [place] [address] WBC (Bld) [#/Vol] 13.31 thou/cmm High 4.23-9.07 [facility] Comment on above: Performed By: #### C BCD1 #### [facility] [address] [place] [address] Lipase Bloodon 12-14-2019 Lipase Blood 32 U/L Normal 16-61 [facility] Comment on above: Performed By: #### L IP #### [place] [address] MDRD GFRon 12-14-2019 GFR/1.73 sq M predicted among non-blacks MDRD (S/P/Bld) [Vol rate/Area] mL/min/{1.73_m2} Normal >60mL/min/1.7 3m2 [facility] Comment on above: Result Comment: If t he patient is , multiply the result by 1.210. Performed By: #### G FR #### [place] [address] Urinalysis Routineon 020 Bacteria LM.HPF (Urine sed) [#/Area] NONE Normal None [facility] Comment on above: Performed By: #### U RIN2 #### [place] [address] Ep Cells Urine 1.5 /hpf Normal 0.0-5.0 [facility] Comment on above: Performed By: #### U RIN2 #### [place] [address] Hyaline Cast 5.3 /lpf High 0.0-1.0 [facility] Comment on above: Performed By: #### U RIN2 #### [place] [address] RBC LM.HPF (Urine sed) [#/Area] 4.3 /[HPF] Normal 0.0-5.0 [facility] Comment on above: Performed By: #### U RIN2 #### [place] [address] WBC LM.HPF (Urine sed) [#/Area] 2.8 /[HPF] Normal 0.0-5.0 [facility] Comment on above: Performed By: #### U RIN2 #### [place] [address] Appearance (U) CLEAR Normal [facility] Comment on above: Performed By: #### U RIN2 #### [place] [address] Bilirubin (U) [Mass/Vol] Negative Normal Negative [facility] Comment on above: Performed By: #### U RIN2 #### [place] [address] Color (U) DK YELLOW Normal [facility] Comment on above: Performed By: #### U RIN2 #### [place] [id number] Glucose Ql (U) Negative Normal Negative [facility] Comment on above: Performed By: #### U RIN2 #### [facility] [address] [place] [address] Hemoglobin,Urine Negative Normal Negative [facility] Comment on above: Performed By: #### U RIN2 #### [facility] [address] [place] [address] Ketone Urine Negative Normal Negative [facility] Comment on above: Performed By: #### U RIN2 #### [facility] [address] [place] [address] Leukocytes Esterase Negative Normal Negative [facility] Comment on above: Performed By: #### U RIN2 #### [facility] [address] [place] [address] Nitrites Urine Negative Normal Negative [facility] Comment on above: Performed By: #### U RIN2 #### [place] [address] pH (U) 6.5 [pH] Normal 5.0-8.0 [facility] Comment on above: Performed By: #### U RIN2 #### [place] [address] Protein (U) [Mass/Vol] 100 mg/dL Abnormal Negative [facility] Comment on above: Performed By: #### U RIN2 #### [place] [address] Specific [place], Ur 1.022 Normal 1.005-1.030 [facility] Comment on above: Performed By: #### U RIN2 #### [place] [address] Urobilinogen,Ur 1.0 EU/dL Normal 0.2-1.0 [facility] Comment on above: Performed By: #### U RIN2 #### [place] [address] CT Cervical Spine WO Paulo ton 11-18-2019 [facility] Incoming Radiology Results From [facility] - 11/18/2019 11:30 AM EDT Patient Name: EL SMITH ---CT--- Exam Date/Time 11/18/2019 11:16:[address] Spine Cervical w/o Contrast Ordering Physician DARLYN WEISS Accession Number [id number] CPT4 Codes 73691 () Reason For Exam neck pain Report [...] JOHN Transcribed Date and Time: 11/18/2019 11:30 [place], [place] Patient Name: EL SMITH ---CT--- Exam Date/Time 11/18/2019 11:16:[address] Spine Cervical w/o Contrast Ordering Physician DARLYN WEISS Accession Number [id number] CPT4 Codes 41399 () Reason For Exam neck pain Report [...] JOHN Transcribed Date and Time: 11/18/2019 11:30 [place], [place] CT Head WO Contraston 2019 [facility], [facility] Incoming Radiology Results From [facility] - 11/18/2019 11:27 AM EDT Patient Name: EL SMITH ---CT--- Exam Date/Time 11/18/2019 11:16:[address] Head or Brain w/o Contrast Ordering Physician DARLYN WEISS Accession Number [id number] CPT4 Codes 34408 () Reason For Exam NUÑEZ Report Indication: [...] JOHN Transcribed Date and Time: 11/18/2019 11:27 [place] Patient Name: EL SMITH ---CT--- Exam Date/Time 11/18/2019 11:16:[address] Head or Brain w/o Contrast Ordering Physician DARLYN WEISS Accession Number [id number] CPT4 Codes 87205 () Reason For Exam NUÑEZ Report Indication: [...] JOHN Transcribed Date and Time: 11/18/2019 11:27 [place] Comprehensive Metabolic Pane eduardo 11-18-2019 Albumin [Mass/Vol] 4.6 g/dL 3.5 - 5 g/dL [place] ALP [Catalytic activity/Vol] 133 U/L High 38 - 126 U/L [place] ALT [Catalytic activity/Vol] 46 U/L 0 - 49 U/L [place] Comment on above: The ALT test is perf ormed by an updated assay method. Please note that the reference intervals have been changed and are now sex specific. Anion gap [Moles/Vol] 14 mmol/L [place], [place] AST [Catalytic activity/Vol] 60 U/L High 15 - 46 U/L [place] Bilirubin Ql (U) 1.1 mg/dL 0.2 - 1.3 mg/dL [place] Calcium [Mass/Vol] 9.0 mg/dL 8.4 - 10. 4 mg/dL [place] Chloride [Moles/Vol] 103 mmol/L 98 - 10 7 mmol/L [place] CO2 [Moles/Vol] 26 mmol/L 22 - 30 mmol/L [place] Creatinine [Mass/Vol] 0.73 mg/dL 0.52 - 1.25 mg/dL [place] EGFR IF NonAfrican [place] >90.0 >60 mL/min [place] Comment on above: KDIGO guidelines pro [...] MDRD (S/P/Bld) [Vol rate/Area] mL/min/{1.73_m2} >60 mL/min [place] Glucose [Mass/Vol] 114 mg/dL High 70 - 100 mg/dL [place] Interpretation and review of laboratory results Abnormal [place] Potassium [Moles/Vol] 3.5 mmol/L 3.5 - 5.1 mmol/L [place] Protein [Mass/Vol] 8.0 g/dL 6.3 - 8.2 g/dL [place] Sodium [Moles/Vol] 142 mmol/L 135 - 145 mmol/L [place] Urea nitrogen [Mass/Vol] 12 mg/dL 7 - 20 mg/dL [place] Test Performed by [facility], [address] [place], [place] [address] , [address] Hemogram (CBC) w/Auto Diffon 11-18-2019 Absolute Baso # 0.1 10*3/uL 0 - 0.2 10*3/uL [place] Absolute Neut # 6.9 10*3/uL 1.8 - 7 10*3/uL [place] Basophils/100 WBC (Bld) 1.4 % 0 - 2 % [place] Eosinophils (Bld) [#/Vol] 0.0 10*3/uL 0 - 0.5 10*3/uL [place] Eosinophils/100 WBC (Bld) 0.1 % Low 1 - 6 % [place] Erythrocyte distribution width (RBC) [Ratio] 14.4 % 11.5 - 14.5 % [place] Granulocytes/100 WBC (Bld) 70.2 % 40 - 80 % [place] Hematocrit (Bld) [Volume fraction] 51.7 % 40 - 52 % [place] Hemoglobin (Bld) [Mass/Vol] 18.6 g/dL High 13 - 18 g/dL [place] Interpretation and review of laboratory results Abnormal [place] Lymphocytes (Bld) [#/Vol] 2.1 10*3/uL 1 - 4.3 10*3/uL [place] Lymphocytes/100 WBC (Bld) 21.6 % 20 - 40 % [place] MCH (RBC) [Entitic mass] 32.4 pg 26 - 34 pg [place] MCHC (RBC) [Mass/Vol] 35.9 % 32 - 36 % [place] MCV (RBC) [Entitic vol] 90.3 fL 80 - 98 fL [place], [place] Monocytes (Bld) [#/Vol] 0.7 10*3/uL 0 - 0.8 10*3/uL [place] Monocytes/100 WBC (Bld) 6.7 % 2 - 10 % [place], [place] Platelet mean volume (Bld) [Entitic vol] 6.6 fL Low 7.4 - 10.4 fL [place] Platelets (Bld) [#/Vol] 510 10*3/uL High 140 - 440 10*3/uL [place] RBC (Bld) [#/Vol] 5.73 10*6/uL 4.4 - 5.9 10*6/uL [place] WBC (Bld) [#/Vol] 9.8 10*3/uL 3.6 - 10.7 10*3/uL [place] Test Performed by [facility], [facility] [address] , [address] CBCon 09-22-2019 Erythrocyte distribution width (RBC) [Ratio] 14.1 % 11.5 - 14.5 % [place] Hematocrit (Bld) [Volume fraction] 45.4 % 40 - 52 % [place] Hemoglobin (Bld) [Mass/Vol] 15.9 g/dL 13 - 18 g/dL [place] Interpretation and review of laboratory results Abnormal [place] MCH (RBC) [Entitic mass] 31.4 pg 26 - 34 pg [place] MCHC (RBC) [Mass/Vol] 35.1 % 32 - 36 % [place] MCV (RBC) [Entitic vol] 89.5 fL 80 - 98 fL [place], [place] Platelet mean volume (Bld) [Entitic vol] 6.5 fL Low 7.4 - 10.4 fL [place] Platelets (Bld) [#/Vol] 384 10*3/uL 140 - 440 10*3/uL [place] RBC (Bld) [#/Vol] 5.07 10*6/uL 4.4 - 5.9 10*6/uL [place] WBC (Bld) [#/Vol] 17.4 10*3/uL High 3.6 - 10.7 10*3/uL [place] Test Performed by [facility], [address] [place] [id number] [place] [address] CT Abdomen Pelvis W Contrast on 09-22-2019 Patient Name: EL SMITH ---CT--- Exam Date/Time 09/22/2019 07:04:[address] Abdomen/Pelvis w/ IV Contrast (IV Onl Ordering Physician MD JACKIE, FELICIANO Laguerre Accession Number [id number] CPT4 Codes 89099 (CT Abdomen/Pelvis w/ IV Contrast (IV Onl), Q9967 (CT ISOVUE 370MG/ML&[id number]& ML&1), Q9966 (CT OMNIPAQUE 240 PER ML&[id number]&ML&1) Reason For Exam Worse uncontrollable abdominal pain, [...] NICHOLAS Transcribed Date and Time: 09/22/2019 7:21 [facility] [place] [place] [facility] - 09/22/2019 7:21 AM EDT Patient Name: EL SMITH ---CT--- Exam Date/Time 09/22/2019 07:04:[address] Abdomen/Pelvis w/ IV Contrast (IV Onl Ordering Physician MD JACKIE, FELICIANO Laguerre Accession Number [id number] CPT4 Codes 19537 (CT Abdomen/Pelvis w/ IV Contrast (IV Onl), Q9967 (CT ISOVUE 370MG/ML&[id number]& ML&1), Q9966 (CT OMNIPAQUE 240 PER ML&[id number]&ML&1) Reason For Exam Worse uncontrollable abdominal pain, [...] NICHOLAS Transcribed Date and Time: 09/22/2019 7:21 [place] Comprehensive Metabolic Pane eduardo 09-22-2019 Albumin [Mass/Vol] 3.5 g/dL 3.5 - 5 g/dL [place] ALP [Catalytic activity/Vol] 92 U/L 38 - 126 U/L [place] ALT [Catalytic activity/Vol] 12 U/L 0 - 49 U/L [place] Comment on above: The ALT test is perf ormed by an updated assay method. Please note that the reference intervals have been changed and are now sex specific. Anion gap [Moles/Vol] 10 mmol/L [place], [place] AST [Catalytic activity/Vol] 24 U/L 15 - 46 U/L [place] Bilirubin Ql (U) 0.7 mg/dL 0.2 - 1.3 mg/dL [place] Calcium [Mass/Vol] 8.3 mg/dL Low 8.4 - 10. 4 mg/dL [place] Chloride [Moles/Vol] 102 mmol/L 98 - 10 7 mmol/L [place] CO2 [Moles/Vol] 24 mmol/L 22 - 30 mmol/L [place] Creatinine [Mass/Vol] 0.78 mg/dL 0.52 - 1.25 mg/dL [place] EGFR IF NonAfrican [place] >90.0 >60 mL/min [place] Comment on above: KDIGO guidelines pro [...] MDRD (S/P/Bld) [Vol rate/Area] mL/min/{1.73_m2} >60 mL/min [place] Glucose [Mass/Vol] 97 mg/dL 70 - 100 mg/dL [place] Interpretation and review of laboratory results Abnormal [place] Potassium [Moles/Vol] 3.2 mmol/L Low 3.5 - 5.1 mmol/L [place] Protein [Mass/Vol] 6.0 g/dL Low 6.3 - 8.2 g/dL [place] Sodium [Moles/Vol] 135 mmol/L 135 - 145 mmol/L [place] Urea nitrogen [Mass/Vol] 13 mg/dL 7 - 20 mg/dL [place] Lipaseon 09-22-2019 Lipase [Catalytic activity/Vol] 237 U/L 23 - 300 U/L [place] Otheron 09-22-2019 Test Performed by [facility], [facility] [address] [place], [place], [place] [id number] [place] [address] CT Abdomen Pelvis W Contrast on 09-21-2019 [facility], [facility] Incoming Radiology Results From [facility] - 09/21/2019 10:51 AM EDT Patient Name: EL SMITH ---CT--- Exam Date/Time 09/21/2019 10:37:[address] Abdomen/Pelvis w/ IV Contrast (IV Onl Ordering Physician [id number] VarinderHITESH CORONA Accession Number [id number] CPT4 Codes 97263 (CT Abdomen/Pelvis w/ IV Contrast (IV Onl), Q9967 (CT ISOVUE 370MG/ML&[id number]& ML&1) Reason For Exam upper and pain, [...] RISA Transcribed Date and Time: 09/21/2019 10:51 [place] Patient Name: EL SMITH ---CT--- Exam Date/Time 09/21/2019 10:37:[address] Abdomen/Pelvis w/ IV Contrast (IV Onl Ordering Physician [id number] NELSON Accession Number [id number] CPT4 Codes 12414 (CT Abdomen/Pelvis w/ IV Contrast (IV Onl), Q9967 (CT ISOVUE 370MG/ML&[id number]& ML&1) Reason For Exam upper and pain, [...] 07/05/2019. Limited slices through the lower lung owrrell reveal no pleural or parenchymal abnormalities in [...] RISA Transcribed Date and Time: 09/21/2019 10:51 [place], [place] Comprehensive Metabolic Pane eduardo 09-21-2019 Albumin [Mass/Vol] 4.1 g/dL 3.5 - 5 g/dL [place] ALP [Catalytic activity/Vol] 114 U/L 38 - 126 U/L [place] ALT [Catalytic activity/Vol] 12 U/L 0 - 49 U/L [place] Comment on above: The ALT test is perf ormed by an updated assay method. Please note that the reference intervals have been changed and are now sex specific. Anion gap [Moles/Vol] 11 mmol/L [place], [place] AST [Catalytic activity/Vol] 26 U/L 15 - 46 U/L [place] Bilirubin Ql (U) 0.7 mg/dL 0.2 - 1.3 mg/dL [place] Calcium [Mass/Vol] 8.8 mg/dL 8.4 - 10. 4 mg/dL [place] Chloride [Moles/Vol] 101 mmol/L 98 - 10 7 mmol/L [place] CO2 [Moles/Vol] 26 mmol/L 22 - 30 mmol/L [place] Creatinine [Mass/Vol] 0.78 mg/dL 0.52 - 1.25 mg/dL [place] EGFR IF NonAfrican [place] >90.0 >60 mL/min [place] Comment on above: KDIGO guidelines pro [...] MDRD (S/P/Bld) [Vol rate/Area] mL/min/{1.73_m2} >60 mL/min [place] Glucose [Mass/Vol] 124 mg/dL High 70 - 100 mg/dL [place] Potassium [Moles/Vol] 3.5 mmol/L 3.5 - 5.1 mmol/L [place] Protein [Mass/Vol] 7.0 g/dL 6.3 - 8.2 g/dL [place] Sodium [Moles/Vol] 138 mmol/L 135 - 145 mmol/L [place] Urea nitrogen [Mass/Vol] 10 mg/dL 7 - 20 mg/dL [place] Hemogram (CBC) w/Auto Diffon 09-21-2019 Erythrocyte distribution width (RBC) [Ratio] 14.1 % 11.5 - 14.5 % [place] Hematocrit (Bld) [Volume fraction] 52.4 % High 40 - 52 % [place] Hemoglobin (Bld) [Mass/Vol] 18.3 g/dL High 13 - 18 g/dL [place] Interpretation and review of laboratory results Abnormal [place] MCH (RBC) [Entitic mass] 31.1 pg 26 - 34 pg [place] MCHC (RBC) [Mass/Vol] 34.9 % 32 - 36 % [place] MCV (RBC) [Entitic vol] 89.1 fL 80 - 98 fL [place] Platelet mean volume (Bld) [Entitic vol] 6.7 fL Low 7.4 - 10.4 fL [place] Platelets (Bld) [#/Vol] 436 10*3/uL 140 - 440 10*3/uL [place] RBC (Bld) [#/Vol] 5.88 10*6/uL 4.4 - 5.9 10*6/uL [place] WBC (Bld) [#/Vol] 15.2 10*3/uL High 3.6 - 10.7 10*3/uL [place] Test Performed by [facility], [address] [place], [place] [id number] [place] [address] Lactic Acid, Plasmaon 2019 Lactate [Moles/Vol] 1.9 mmol/L 0.7 - 2 mmol/L [place] Test Performed by [facility], [address] [place], [place] [id number] [place] [address] Lipaseon 09-21-2019 Lipase [Catalytic activity/Vol] 502 U/L High 23 - 300 U/L [place], [place] Manual Differentialon 2019 Absolute Baso # 0.0 10*3/uL 0 - 0.2 10*3/uL [place] Absolute Eos # 0.0 10*3/uL 0 - 0.5 10*3/uL [place] Absolute Lymph # 2.3 10*3/uL 1.1 - 4.5 10*3/uL [place] Absolute Barber # 1.1 10*3/uL 0.2 - 1.1 10*3/uL [place] Absolute Neut # 11.9 10*3/uL High 2.2 - 8.2 10*3/uL [place] Bands 0 % 0 - 3 % [facility], [place] Basophils 0 % 0 - 2 % [facility] Eosinophils 0 % Low 1 - 6 % [place] Interpretation and review of laboratory results Abnormal [place] Lymphocytes 15 % Low 20 - 40 % [facility], [place] Monocytes 7 % 2 - 10 % [place] RBC morphology finding Nom (Bld) Normal [place] Seg Neutrophils 78 % 40 - 80 % [place] TOTAL CELLS COUNTED 100 [place] Test Performed by [facility], [address], [place], [place] [address] [place] Otheron 09-21-2019 Interpretation and review of laboratory results Abnormal [place] Test Performed by [facility], [address], [place], [place] [address] [place] Basic Metabolic Panelon 03-0 Anion gap [Moles/Vol] 10 mmol/L [place] Calcium [Mass/Vol] 9.3 mg/dL 8.4 - 10. 4 mg/dL [place] Chloride [Moles/Vol] 100 mmol/L 98 - 10 7 mmol/L [place] CO2 [Moles/Vol] 28 mmol/L 22 - 30 mmol/L [place] Creatinine [Mass/Vol] 0.85 mg/dL 0.52 - 1.25 mg/dL [place] EGFR IF NonAfrican [place] >60.0 >60 mL/min [place] Comment on above: Source- MDRD equatio n with creatinine calibration to IDMS(NKDEP) eGFR not recommended for drug dose adjustment GFR/1.73 sq M predicted among blacks MDRD (S/P/Bld) [Vol rate/Area] mL/min/{1.73_m2} >60 mL/min [place] Glucose [Mass/Vol] 111 mg/dL High 70 - 100 mg/dL [place] Interpretation and review of laboratory results Abnormal [place] Potassium [Moles/Vol] 3.6 mmol/L 3.5 - 5.1 mmol/L [place] Sodium [Moles/Vol] 138 mmol/L 135 - 145 mmol/L [place] Urea nitrogen [Mass/Vol] 13 mg/dL 7 - 20 mg/dL [place] Test Performed by [facility], [address] , [place], [place] [address] [place] CBC Auto Differentialon 03-0 Absolute Baso # 0.2 10*3/uL 0 - 0.2 10*3/uL [place] Absolute Neut # 9.3 10*3/uL High 1.8 - 7 10*3/uL [place] Basophils/100 WBC (Bld) 1.3 % 0 - 2 % [place] Eosinophils (Bld) [#/Vol] 0.0 10*3/uL 0 - 0.5 10*3/uL [place] Eosinophils/100 WBC (Bld) 0.3 % Low 1 - 6 % [place] Erythrocyte distribution width (RBC) [Ratio] 13.8 % 11.5 - 14.5 % [place] Granulocytes/100 WBC (Bld) 65.6 % 40 - 80 % [place] Hematocrit (Bld) [Volume fraction] 51.0 % 40 - 52 % [place] Hemoglobin (Bld) [Mass/Vol] 17.0 g/dL 13 - 18 g/dL [place] Interpretation and review of laboratory results Abnormal [place] Lymphocytes (Bld) [#/Vol] 3.7 10*3/uL 1 - 4.3 10*3/uL [place] Lymphocytes/100 WBC (Bld) 26.0 % 20 - 40 % [place] MCH (RBC) [Entitic mass] 29.7 pg 26 - 34 pg [place] MCHC (RBC) [Mass/Vol] 33.4 % 32 - 36 % [place] MCV (RBC) [Entitic vol] 88.9 fL 80 - 98 fL [place], [place] Monocytes (Bld) [#/Vol] 1.0 10*3/uL High 0 - 0.8 10*3/uL [place] Monocytes/100 WBC (Bld) 6.8 % 2 - 10 % [place] Platelet mean volume (Bld) [Entitic vol] 7.1 fL Low 7.4 - 10.4 fL [place] Platelets (Bld) [#/Vol] 420 10*3/uL 140 - 440 10*3/uL [place] RBC (Bld) [#/Vol] 5.73 10*6/uL 4.4 - 5.9 10*6/uL [place] WBC (Bld) [#/Vol] 14.2 10*3/uL High 3.6 - 10.7 10*3/uL [place] Test Performed by [facility], [address] , [address] Abdomen Pelvis Wo Contras ton 06-25-2019 O[facility], [facility] Incoming Radiology Results From [facility] - 06/25/2019 5:20 PM EDT Patient Name: EL SMITH ---CT--- Exam Date/Time 06/25/2019 17:00:[address] Abdomen/Pelvis (No PO, No IV) Ordering Physician MD GLENNA, BIJAN Grimm Accession Number [id number] CPT4 Codes 91344 (CT Abdomen/Pelvis (No PO, No IV)) Reason [...] WENDELL Transcribed Date and Time: 06/25/2019 5:20 [place] Patient Name: EL SMITH ---CT--- Exam Date/Time 06/25/2019 17:00:[address] Abdomen/Pelvis (No PO, No IV) Ordering Physician MD MANZANARES GREGORY M Accession Number [id number] CPT4 Codes 01034 (CT Abdomen/Pelvis (No PO, No IV)) Reason [...] WENDELL Transcribed Date and Time: 06/25/2019 5:20 [facility], [place] Urinalysison 06-25-2019 Appearance (U) Clear Clear NA [facility], [place] Bilirubin Urine Negative Negative mg/dL [facility], [place] Color (U) LIGHT ORANGE Lt. Yellow NA [facility], [place] Glucose, Ur Normal Normal (<70) mg/dL [facility], [place] Ketones Ql (U) Negative Negative mg/dL [facility] LEUKOCYTES, UA Negative Negative Soren/uL [facility], [place] Mucous Threads Few Negative /[LPF] [facility], [place] Nitrite, Urine Negative Negative NA [facility], [place] Occult Blood,Urine Negative Negative mg/dL [place] pH (U) 6.0 [pH] [facility], [place] Protein (U) [Mass/Vol] 70 mg/dL Negative [facility], [place] RBC (U) [#/Vol] 0-2 0 - 2 /[HPF] [place] Specific [place], Urine >1.030 [place] Urobilinogen, Urine 4 mg/dL Normal (0-1) [facility], [place] Volume 12 ml [place], [place] WBC, UA 0-2 0 - 5 /[HPF] [place] Test Performed by [facility], [facility] , [address] ANES Radhames 12-14-2018 ANES POST HNO ID: [id number] Author: Yaz ([place] Griffin Service: Anesthesiology Author [...] 14, 2018 TIME: 1:38 PM PAGER/CONTACT #: [phone] [facility] ANES PREOPon 12-14-2018 ANES PREOP HNO ID: [id number] Author: José Miguel Levi Service: Anesthesiology Author [...] DATE: December 14, 2018 TIME: 10:42 AM [facility] HISTORY PHYSICALon HISTORY PHYSICAL HNO ID: [id number] Author: Nate Reich (Pa) Service: Gastroenterology Author Type: Physician Asset Card Clerk Type: HANDP Filed: 12/14/2018 10:53 AM Note [...] Lumbar dysfunction Medication reconciliation list reviewed in [facility]. Past medical history, past surgical history, social history and family history reviewed and updated in [facility]. ALLERGIES Allergen Reactions - Other Rash Metals- [...] DATE: December 14, 2018 TIME: 9:09 AM [facility] PT EDon 12-14-2018 PT ED HNO ID: [id number] Author: Lucian (Rn) DESIREE Krishna Service: Nursing Author Type: Registered Nurse Type: Patient Education Filed: 12/14/2018 10:55 AM Note Text: PATIENT EDUCATION TOPIC: PROCEDURE / SURGERY: Pre-op Teaching: Logistics Protocols PATIENT NAME: El Smith PATIENT [facility] READINESS TO LEARN COGNITIVE ABILITY: Alert [...] None Electronically Signed By: Lucian Krishna RN [facility] SURGICAL PATHOLOGYon 019 SURGICAL PATHOLOGY Specimen originated from [facility] Specimen #: [id number] Submitting Physician: NAILA EVERETT FINAL DIAGNOSIS 1. [...] in one cassette. Gross examination performed at [facility], [address] [place] [address] 12/14/2018 3:35:25 PM Date of Report: 12/15/2018 Date of Procedure: 12/14/2018 Date of Receipt: 12/14/2018 Submitted by: NAILA EVERETT Location: [facility] Diagnostic interpretation performed at [facility], [address] [place] [address]. CLIA Number: [id number] [facility] HOSPon 12-08-2018 HOSP Patient:Cait Smith i [...] no admission medications. Problem List: Lumbar dysfunction [[id number]] Lumbago [M54.5] Sciatica [M54.30] Displacement of lumbar [...] 55.1 % 12/05/2018 51.0 39.0 Progress Notes ([facility]): Gerda Kohli RN, RN 12/07/2018 9:47 AM Signed I called patient and reviewed instructions for EGD. Patient instructed on diet and medication regimen. Patient verbalized understanding of all instructions and will call with any questions. Gerda Kohli RN spoke to patient Progress Notes ([facility]): Sonali Shabazz RN 12/05/2018 3:02 PM Signed [...] Coffee: No The above documentation completed by Sonali Shabazz RN I agree with the Chief Complaint, ROS, and Past Histories independently gathered by the clinical patient support representative and the remaining scribed note accurately describes [...] bleeding ulcer when he was living in [place] 3-4 years ago. He takes ibuprofen OTC [...] Abs Lymph 1.00 - 4.00 k/uL 2.83 Barber% % 9.8 Abs Barber <0.87 k/uL 1.14 (H) Eosin% % 0.4 [...] PHYSICIAN Naila Everett MD Previous Version [facility] HNO ID: [id number] Author: Papa Sorto (Tech) Service: Radiology Author Type: Pop Singer Type: Allied Health Filed: 12/05/2018 12:15 PM [...] December 05, 2018 TIME: 12:15 PM [facility] ALLIED HE[facility] HNO ID: [id number] Author: Lisa MahanRtPpaa Live Service: ? Author Type: Pop Singer Type: Allied Health Filed: 12/05/2018 10:06 AM [...] RT Kathy December 05, 2018 10:06 AM [employer] CBC and Differentialon 12-05 Abs Baso 0.12 k/uL High <0.11 [facility] Abs Barber 1.14 k/uL High <0.87 [facility] Abs Neut 7.44 k/uL Normal 1.45-7.50 [facility] Basophils/100 WBC (Bld) 1.0 % Normal H [facility] DTYPE Auto Diff Normal [facility] Eosinophils (Bld) [#/Vol] 0.05 10*3/uL Normal <0.46 [facility] Eosinophils/100 WBC (Bld) 0.4 % Normal [facility] Erythrocyte distribution width (RBC) [Ratio] 13.8 % Normal 11.5-15.0 [facility] Hematocrit (Bld) [Volume fraction] 55.1 % High 39.0-51.0 [facility] Hemoglobin (Bld) [Mass/Vol] 19.3 g/dL High 13.0-17.0 [facility] Lymphocytes (Bld) [#/Vol] 2.83 10*3/uL Normal 1.00-4.00 [facility] Lymphocytes/100 WBC (Bld) 24.4 % Normal [facility] MCH (RBC) [Entitic mass] 31.3 pG Normal 26.0-34.0 [facility] MCHC (RBC) [Mass/Vol] 35.0 g/dL Normal 30.5-36.0 [facility] MCV (RBC) [Entitic vol] 89.3 fL Normal 80.0-100.0 H [facility] Monocytes/100 WBC (Bld) 9.8 % Normal H [facility] Neutrophils/100 WBC (Bld) 64.4 % Normal [facility] Platelet mean volume (Bld) [Entitic vol] 9.3 fL Normal 9.0-12.7 [facility] Platelets (Bld) [#/Vol] 512 10*3/uL High 150-400 [facility] RBC (Bld) [#/Vol] 6.17 10*6/uL High 4.20-6.00 [facility] WBC (Bld) [#/Vol] 11.58 10*3/uL High 3.70-11.[address] [facility] [address] ABD/PEL W IVCONon 019 CT ABD/PEL W IVCON * * *Final Report* * * DATE OF EXAM: Dec 05 2018 11:57AM [facility] 0530 - CT ABD/PEL W IVCON / [...] 05 2018 12:16PM EST [id number] N Normal [facility] Comp Metabolic Panelon 12-05 Albumin [Mass/Vol] 4.7 g/dL Normal 3.9-4.9 [facility] ALP [Catalytic activity/Vol] 94 U/L Normal 38-113 [facility] ALT [Catalytic activity/Vol] 9 U/L Low 10-54 [facility] Comment on above: Result Comment: Resu lts may be falsely increased due to interference by hemolysis. Suggest reorder as clinically indicated. Anion gap [Moles/Vol] 16 mmol/L Normal 9-18 [facility] AST [Catalytic activity/Vol] 21 U/L Normal 14-40 [facility] Comment on above: Result Comment: Resu lts may be falsely increased due to interference by hemolysis. Suggest reorder as clinically indicated. Bilirubin [Mass/Vol] 0.9 mg/dL Normal 0.2-1.3 [facility] Calcium [Mass/Vol] 10.0 mg/dL Normal 8.5-10.2 [facility] Chloride [Moles/Vol] 100 mmol/L Normal 97-105 [facility] CO2 [Moles/Vol] 25 mmol/L Normal 22-33 [facility] Creatinine [Mass/Vol] 0.79 mg/dL Normal 0.73-1.22 [facility] eGFR- Amer. >60 Normal [facility] GFR/1.73 sq M predicted among non-blacks MDRD (S/P/Bld) [Vol rate/Area] mL/min/{1.73_m2} Normal [facility] Comment on above: Result Comment: eGFR (Estimated [...] GFR. Glucose [Mass/Vol] 96 mg/dL Normal 74-99 [facility] Potassium [Moles/Vol] 3.9 mmol/L Normal 3.7-5.1 [facility] Comment on above: Result Comment: Resu lts may be falsely increased due to interference by hemolysis. Suggest reorder as clinically indicated. Protein [Mass/Vol] 8.5 g/dL High 6.3-8.0 [facility] Sodium [Moles/Vol] 141 mmol/L Normal 136-144 [facility] Urea nitrogen [Mass/Vol] 15 mg/dL Normal 9-24 [facility] ECG COMPLETEon 12-05-2018 ECG COMPLETE NAME : EL SMITH PID : [id number] : 1980 Gender : Male Race : ORD : [id number] Procedure Date : Dec 05 2018 09:40:47 Edit Date : Dec 05 2018 13:08:03 Diagnosis:SINUS TACHYCARDIA BIATRIAL ENLARGEMENT LEFT VENTRICULAR HYPERTROPHY ABNORMAL ECG NO PREVIOUS ECGS AVAILABLE confirmed 954 Confirmed by DO TREVINO STEPHANIE ([id number]), copy editor SANDEE KRUGER ([id number]) on 12/05/2018 1:07:59 PM Ventricular Rate : 110 BPM Atrial Rate : 110 BPM P-R Interval : 138 ms QRS Duration : 98 ms Q-T Interval : 338 ms QTC Calculation(Bazett) : 457 ms P [place] : 80 degrees R [place] : 75 degrees T [place] : 58 degrees Test Reason : Chest Pain Location : 26 : ER L ED Overread By : DO TREVINO STEPHANIE Edited By : SANDEE KRUGER Referred By : , Acquired by : [id number], [employer] [facility] [employer] ED NOTEon 12-05-2018 INR Coag (Bld) [Relative time] HNO ID: [id number] Author: Wilson MahanRn) DESIREE Richey Service: ? [...] states abd pain is over upper quadrant. [facility] ED NOTE HNO ID: [id number] Author: Uriel (Eliane) Charissa Service: ? Author Type: [employer] Type: ED Notes Filed: 12/05/2018 9:35 AM Note Text: Bed: ED-24 Expected date: Expected time: Means of arrival: [facility] Dept Comments: [facility] ED PROV NOTEon 12-05-2018 ED PROV NOTE HNO ID: [id number] Author: Salina Trevino DO Service: Emergency Medicine [...] last 3 weeks. He was seen in [facility] admitted and found to have dilatation [...] 512 (*) 150 - 400 k/uL Abs Barber 1.14 (*) <0.87 k/uL Abs Baso 0.12 [...] DO Salina Ernandez DO 12/05/18 1305 Normal [facility] Lactateon 12-05-2018 Lactate [Moles/Vol] 1.3 mmol/L Normal 0.5-2.2 [facility] Lipaseon 12-05-2018 Lipase [Catalytic activity/Vol] 15 U/L Low 16-61 [facility] Magnesiumon 12-05-2018 Magnesium [Mass/Vol] 1.8 mg/dL Normal 1.7-2.3 [facility] Troponin Ton 12-05-2018 Troponin T.cardiac [Mass/Vol] ug/L Normal 0.000-0.029 [facility] Comment on above: Result Comment: Resu [...] 05 2018 10:21AM EST [id number] Normal [facility] Emergency Room Note on 10-05-2017 [facility] Normal [facility] ([place] [facility] Normal [facility] ([place]) .Auto Diffon 10-04-2017 Basophils Auto #/vol (Bld) 0.20 10 3/mcL High 0.00-0.19 [facility] ([place] Comment on above: Performed By: #### D IFF, CBC, MORPH, BMP, GFR ####[address] [place], [place] [address] Basophils/100 WBC Auto (Bld) 1.3 % Normal 0.0-2.5 [facility] ([place]) Comment on above: Performed By: #### D IFF, CBC, MORPH, BMP, GFR ####[address] [place], [place] [address] Eosinophils 0.10 10 3/mcL Normal 0.00-0.40 [facility] ([place]) Comment on above: Performed By: #### D IFF, CBC, MORPH, BMP, GFR ####[address] [place], [place] [address] Eosinophils/100 leukocytes 0.6 % Normal 0.0-7.0 [facility] ([place] Comment on above: Performed By: #### D IFF, CBC, MORPH, BMP, GFR ####[address] [place], [place] [address] Lymphocytes 3.20 10 3/mcL Normal 0.77-3.85 [facility] ([place]) Comment on above: Performed By: #### D IFF, CBC, MORPH, BMP, GFR ####[address] [place], [place] [address] Lymphocytes/100 leukocytes 25.6 % Normal 10.0-50.0 [facility] ([place] Comment on above: Performed By: #### D IFF, CBC, MORPH, BMP, GFR ####[address] [place], [place] [address] Monocytes 0.90 10 3/mcL Normal 0.15-1.00 [facility] ([place]) Comment on above: Performed By: #### D IFF, CBC, MORPH, BMP, GFR ####[address] [place], [place] [address] Monocytes/100 leukocytes 7.0 % Normal 1.7-13.0 [facility] ([place] Comment on above: Performed By: #### D IFF, CBC, MORPH, BMP, GFR ####[address] [place], [place] [address] Neutrophils/100 WBC Auto (Bld) 65.5 % Normal 37.0-80.0 [facility] ([place] Comment on above: Performed By: #### D IFF, CBC, MORPH, BMP, GFR ####[address] [place], [place] [address] .GFRon 10-04-2017 eGFR (non-black) mL/min/{1.73_m2} Normal [facility] ([place]) Comment on above: Result Comment: GFR Population [...] D IFF, CBC, MORPH, BMP, GFR ####[address] [place], [place] [address] eGFR (non-black) 132 ml/min/1.73sqm Normal [facility] ([place] Comment on above: Result Comment: GFR Population [...] IFF, CBC, MORPH, BMP, GFR ####[address] [place], [place] [address] .NEUABSon 10-04-2017 Neutrophils 8.20 10 3/mcL High 2.85-6.16 [facility] ([place]) Comment on above: Performed By: #### D IFF, CBC, MORPH, BMP, GFR ####[address] [place], [place] [address] .Urinalysis Microscopic (AO) on 10-04-2017 UA Squam Epithelial None Seen Normal None Seen [facility] ([place]) Comment on above: Performed By: #### D IFF, CBC, MORPH, BMP, GFR ####[address] [place], [place] [address] UA WBC None Seen Normal None Seen [facility] ([place] Comment on above: Performed By: #### D IFF, CBC, MORPH, BMP, GFR ####[address] [place], [place] [address] Urine, erythrocytes None Seen Normal None Seen [facility] ([place]) Comment on above: Performed By: #### D IFF, CBC, MORPH, BMP, GFR ####[address] [place], [place] [address] BMPon 10-04-2017 BUN/Creatinine Ratio 10 ratio Normal 7-27 [facility] ([place]) Comment on above: Performed By: #### D IFF, CBC, MORPH, BMP, GFR ####[address] [place], [place] [address] Calcium 9.7 mg/dL Normal 8.4-10.2 [facility] ([place] Comment on above: Performed By: #### D IFF, CBC, MORPH, BMP, GFR ####[address] [place], [place] [address] CO2 27 mmol/L Normal 22-29 [facility] ([place] Comment on above: Performed By: #### D IFF, CBC, MORPH, BMP, GFR ####[address] [place], [place] [address] Creatinine 0.8 mg/dL Normal 0.6-1.2 [facility] ([place]) Comment on above: Performed By: #### D IFF, CBC, MORPH, BMP, GFR ####[address] [place], [place] [address] Electrolyte Balance 14.0 mEq/L Normal [facility] ([place]) Comment on above: Performed By: #### D IFF, CBC, MORPH, BMP, GFR ####[address] [place], [place] [address] Glucose mass conc 119 mg/dL High 70-105 [facility] ([place]) Comment on above: Performed By: #### D IFF, CBC, MORPH, BMP, GFR ####[address] [place], [place] [address] Urea nitrogen 8.2 mg/dL Normal 7.0-18.0 [facility] ([place] Comment on above: Performed By: #### D IFF, CBC, MORPH, BMP, GFR ####[address] [place], [place] [address] Chloride 100 mmol/L Normal 98-107 [facility] ([place] Comment on above: Performed By: #### D IFF, CBC, MORPH, BMP, GFR ####[address] [place], [place] [address] Potassium molar conc 3.5 mmol/L Normal 3.5-5.1 [facility] ([place]) Comment on above: Performed By: #### D IFF, CBC, MORPH, BMP, GFR ####[address] [place], [place] [address] Sodium 141 mmol/L Normal 136-146 [facility] ([place] Comment on above: Performed By: #### D IFF, CBC, MORPH, BMP, GFR ####[address] [place], [place] [address] CBCon 10-04-2017 Erythrocyte distribution width Auto Ratio (RBC) 13.1 % Normal 11.5-14.5 [facility] ([place] Comment on above: Performed By: #### D IFF, CBC, MORPH, BMP, GFR ####[address] [place], [place] [address] Erythrocytes (RBC) 5.95 10 6/mcL Normal 4.04-6.13 [facility] ([place]) Comment on above: Performed By: #### D IFF, CBC, MORPH, BMP, GFR ####[address] [place], [place] [address] Hematocrit (HCT) 51.7 % Normal 42.0-52.0 [facility] ([place] Comment on above: Performed By: #### D IFF, CBC, MORPH, BMP, GFR ####[address] [place], [place] [address] Hemoglobin mass conc (Bld) 17.5 G/dL Normal 14.0-18.0 [facility] ([place] Comment on above: Performed By: #### D IFF, CBC, MORPH, BMP, GFR ####[address] [place], [place] [address] MCH 29.4 pg Normal 27.0-31.2 [facility] ([place] Comment on above: Performed By: #### D IFF, CBC, MORPH, BMP, GFR ####[address] [place], [place] [address] MCHC mass conc (RBC) 33.8 G/dL Normal 31.8-35.4 [facility] ([place]) Comment on above: Performed By: #### D IFF, CBC, MORPH, BMP, GFR ####[address] [place], [place] [address] MCV 86.9 fL Normal 80.0-94.0 [facility] ([place]) Comment on above: Performed By: #### D IFF, CBC, MORPH, BMP, GFR ####[address] [place], [place] [address] Platelet mean volume (PMV) 7.2 fL Low 7.4-10.4 [facility] ([place] Comment on above: Performed By: #### D IFF, CBC, MORPH, BMP, GFR ####[address] [place], [place] [address] Platelets 437 10 3/mcL High 130-400 [facility] ([place] Comment on above: Performed By: #### D IFF, CBC, MORPH, BMP, GFR ####[address] [place], [place] [address] WBC (Leukocytes) 12.50 10 3/mcL High 4.60-10.80 [facility] ([place]) Comment on above: Performed By: #### D IFF, CBC, MORPH, BMP, GFR ####[address] [place], [place] [address] MGon 10-04-2017 Magnesium 1.7 mg/dL Normal 1.7-2.5 [facility] ([place] Comment on above: Performed By: #### D IFF, CBC, MORPH, BMP, GFR ####[address] [place], [place] [address] Pat Eduon 10-04-2017 Pat Edu Normal [facility] ([place] Patient Summary Documentson 10-04-2017 Patient Summary Documents Normal [facility] ([place] UAon 10-04-2017 UA Appear Clear Normal Clear [facility] ([place] Comment on above: Performed By: #### D IFF, CBC, MORPH, BMP, GFR ####[address] [place], [place] [address] UA Blood Negative Normal Negative [facility] ([place] Comment on above: Performed By: #### D IFF, CBC, MORPH, BMP, GFR ####[address] [place] [address] UA Leuk Est Negative Normal Negative [facility] ([place] Comment on above: Performed By: #### D IFF, CBC, MORPH, BMP, GFR ####[address] [place], [place] [address] UA Nitrite Negative Normal Negative [facility] ([place] Comment on above: Performed By: #### D IFF, CBC, MORPH, BMP, GFR ####[address] [place] [address] UA pH 6.0 [facility] ([place] Comment on above: Performed By: #### D IFF, CBC, MORPH, BMP, GFR ####[address] [place] [address] UA Protein Negative Normal Negative [facility] ([place] Comment on above: Performed By: #### D IFF, CBC, MORPH, BMP, GFR ####[address] [place] [address] UA Spec Grav 1.015 Normal [facility] ([place] Comment on above: Performed By: #### D IFF, CBC, MORPH, BMP, GFR ####[address] [place] [address] UA Specimen Type Clean Catch [facility] ([place] Comment on above: Performed By: #### D IFF, CBC, MORPH, BMP, GFR ####[address] [place] [address] UA Urobilinogen 0.2 E.U./dL [facility] ([place] Comment on above: Performed By: #### D IFF, CBC, MORPH, BMP, GFR ####[address] [place] [address] Urine, color Yellow [facility] ([place] Comment on above: Performed By: #### D IFF, CBC, MORPH, BMP, GFR ####[address] [place] [address] Urine, glucose Negative Normal [facility] ([place]) Comment on above: Performed By: #### D IFF, CBC, MORPH, BMP, GFR ####[address] [place], [place] [address] Urine, ketones presence Negative Normal Negative A [facility] ([place]) Comment on above: Performed By: #### D IFF, CBC, MORPH, BMP, GFR ####[address] [place], [place] [address] Urine, urobilinogen Negative Normal Negative [facility] ([place]) Comment on above: Performed By: #### D IFF, CBC, MORPH, BMP, GFR ####[address] [place], [place] [address] [facility] Note on 08-08-2017 [facility] Note Normal [facility] ([place]) Pat Eduon 08-08-2017 [facility] Normal [facility] ([place] Patient Summary Documentson 08-08-2017 Patient Summary Documents Normal [facility] ([place]) [facility] Note on 06-15-2017 [facility] Note Normal [facility] ([place] Pat Eduon 06-15-2017 Pat [facility] Normal [facility] ([place] Patient Summary Documentson 06-15-2017 Patient Summary Documents Normal [facility] ([place]) [facility] Dis[facility] Summaryon 02-03-2017 [facility] Dis[facility] Summary Normal [facility] ([place]) [facility] History and Physica eduardo 02-03-2017 [facility] History and Physical Normal [facility]) [facility] Admi t Noteon 02-02-2017 [facility] Admit Note Normal [facility]) ED Note-Provideron 7 ED Note-Provider Normal [facility]) .Auto Diffon 01-18-2017 Basophils Auto #/vol (Bld) 0.20 10 3/mcL High 0.00-0.19 [facility]) Comment on above: Performed By: #### D IFF, CBC, MORPH, BMP, GFR ####[address] [place], [place] [address] Basophils/100 WBC Auto (Bld) 1.2 % Normal 0.0-2.5 [facility]) Comment on above: Performed By: #### D IFF, CBC, MORPH, BMP, GFR ####[address] [place], [place] [address] Eosinophils 0.10 10 3/mcL Normal 0.00-0.40 [facility] ([place] Comment on above: Performed By: #### D IFF, CBC, MORPH, BMP, GFR ####[address] [place], [place] [address] Eosinophils/100 leukocytes 0.8 % Normal 0.0-7.0 [facility] ([place] Comment on above: Performed By: #### D IFF, CBC, MORPH, BMP, GFR ####[address] [place], [place] [address] Lymphocytes 3.30 10 3/mcL Normal 0.77-3.85 [facility] ([place] Comment on above: Performed By: #### D IFF, CBC, MORPH, BMP, GFR ####[address] [place], [place] [address] Lymphocytes/100 leukocytes 22.7 % Normal 10.0-50.0 [facility] ([place] Comment on above: Performed By: #### D IFF, CBC, MORPH, BMP, GFR ####[address] [place], [place] [address] Monocytes 1.50 10 3/mcL High 0.15-1.00 [facility] ([place] Comment on above: Performed By: #### D IFF, CBC, MORPH, BMP, GFR ####[address] [place], [place] [address] Monocytes/100 leukocytes 10.1 % Normal 1.7-13.0 [facility] ([place] Comment on above: Performed By: #### D IFF, CBC, MORPH, BMP, GFR ####[address] [place], [place] [address] Neutrophils/100 WBC Auto (Bld) 65.2 % Normal 37.0-80.0 [facility] ([place] Comment on above: Performed By: #### D IFF, CBC, MORPH, BMP, GFR ####[address] [place], [place] [address] .GFRon 01-18-2017 eGFR (non-black) mL/min/{1.73_m2} Normal [facility] ([place]) Comment on above: Result Comment: GFR Population [...] #### D IFF, CBC, MORPH, BMP, GFR ####[address] [place], [place] [address] eGFR (non-black) 88 ml/min/1.73sqm Normal A [facility] ([place]) Comment on above: Result Comment: GFR Population [...] #### D IFF, CBC, MORPH, BMP, GFR ####[address] [place], [place] [address] .NEUABSon 01-18-2017 Neutrophils 9.40 10 3/mcL High 2.85-6.16 [facility] ([place] Comment on above: Performed By: #### D IFF, CBC, MORPH, BMP, GFR ####[address] [place], [place] [address] .Urinalysis Microscopic (AO) on 01-18-2017 UA Squam Epithelial None Seen Normal None Seen [facility] ([place]) Comment on above: Performed By: #### D IFF, CBC, MORPH, BMP, GFR ####[address] [place], [place] [address] UA WBC None Seen Normal None Seen [facility] ([place] Comment on above: Performed By: #### D IFF, CBC, MORPH, BMP, GFR ####[address] [place] [address] Urine, erythrocytes None Seen Normal None Seen [facility] ([place]) Comment on above: Performed By: #### D IFF, CBC, MORPH, BMP, GFR ####[address] [place] [address] ACETAon 01-18-2017 Acetaminophen mass conc <15.0 Low 15.0-30.0 A [facility] ([place] Comment on above: Performed By: #### A LC, ACETA, FABIOLA ####[address] [place] [address] Ana 01-18-2017 Ethanol Level <10 Normal [facility] ([place] Comment on above: Performed By: #### A LC, ACETA, FABIOLA ####[address] [place] [address] BMPon 01-18-2017 Glucose mass conc 104 mg/dL Normal 70-105 [facility] ([place]) Comment on above: Performed By: #### D IFF, CBC, MORPH, BMP, GFR ####[address] [place] [address] BUN/Creatinine Ratio 24 ratio Normal 7-27 [facility] ([place]) Comment on above: Performed By: #### D IFF, CBC, MORPH, BMP, GFR ####[address] [place] [id number] Creatinine 1.2 mg/dL Normal 0.6-1.2 [facility] ([place] Comment on above: Performed By: #### D IFF, CBC, MORPH, BMP, GFR ####[address] [place], [place] [address] CO2 25 mmol/L Normal 22-29 [facility] ([place] Comment on above: Performed By: #### D IFF, CBC, MORPH, BMP, GFR ####[address] [place], [place] [address] Electrolyte Balance 8.0 mEq/L Normal [facility] ([place]) Comment on above: Performed By: #### D IFF, CBC, MORPH, BMP, GFR ####[address] [place], [place] [address] Calcium 8.3 mg/dL Low 8.4-10.2 [facility] ([place] Comment on above: Performed By: #### D IFF, CBC, MORPH, BMP, GFR ####[address] [place], [place] [address] Urea nitrogen 28.8 mg/dL High 7.0-18.0 [facility] ([place]) Comment on above: Performed By: #### D IFF, CBC, MORPH, BMP, GFR ####[address] [place] [id number] Chloride 103 mmol/L Normal 98-107 [facility] ([place] Comment on above: Performed By: #### D IFF, CBC, MORPH, BMP, GFR ####[address] [place], [place] [address] Potassium molar conc 4.0 mmol/L Normal 3.5-5.1 [facility] ([place]) Comment on above: Performed By: #### D IFF, CBC, MORPH, BMP, GFR ####[address] [place], [place] [address] Sodium 136 mmol/L Normal 136-146 [facility] ([place] Comment on above: Performed By: #### D IFF, CBC, MORPH, BMP, GFR ####[address] [place], [place] [address] CBCon 01-18-2017 Erythrocyte distribution width Auto Ratio (RBC) 13.9 % Normal 11.5-14.5 [facility] ([place] Comment on above: Performed By: #### C BC, ADIFF, ANEU, GFR, CK, BMP ####[address] [place], [place] [address] Erythrocytes (RBC) 4.79 10 6/mcL Normal 4.04-6.13 [facility] ([place]) Comment on above: Performed By: #### C BC, ADIFF, ANEU, GFR, CK, BMP ####[address] [place], [place] [address] Hematocrit (HCT) 42.2 % Normal 42.0-52.0 [facility] ([place] Comment on above: Performed By: #### C BC, ADIFF, ANEU, GFR, CK, BMP ####[address] [place], [place] [address] Hemoglobin mass conc (Bld) 14.1 G/dL Normal 14.0-18.0 [facility] ([place] Comment on above: Performed By: #### C BC, ADIFF, ANEU, GFR, CK, BMP ####[address] [place], [place] [address] MCH 29.4 pg Normal 27.0-31.2 [facility] [facility] ([place]) Comment on above: Performed By: #### C BC, ADIFF, ANEU, GFR, CK, BMP ####Lloyd [address] [place], [place] [address] MCHC mass conc (RBC) 33.4 G/dL Normal 31.8-35.4 [facility] ([place]) Comment on above: Performed By: #### C BC, ADIFF, ANEU, GFR, CK, BMP ####Lloyd [address] [place], [place] [address] MCV 88.1 fL Normal 80.0-94.0 [facility] ([place]) Comment on above: Performed By: #### C BC, ADIFF, ANEU, GFR, CK, BMP ####Lloyd [address] [place], [place] [address] Platelet mean volume (PMV) 7.0 fL Low 7.4-10.4 [facility] ([place]) Comment on above: Performed By: #### C BC, ADIFF, ANEU, GFR, CK, BMP ####Lloyd [address] [place], [place] [address] Platelets 391 10 3/mcL Normal 130-400 [facility] ([place]) Comment on above: Performed By: #### C BC, ADIFF, ANEU, GFR, CK, BMP ####Lloyd [address] [place], [place] [address] WBC (Leukocytes) 14.50 10 3/mcL High 4.60-10.80 [facility] ([place]) Comment on above: Performed By: #### C BC, ADIFF, ANEU, GFR, CK, BMP ####[address]oyd [address] [place], [place] [address] CKon 01-18-2017 Creatine kinase (CK) 340 U/L High 38-174 [facility]) Comment on above: Performed By: #### D IFF, CBC, MORPH, BMP, GFR ####Lloyd [address] [place], [place] [address] CRURon 01-18-2017 Creatinine 175.0 mg/dL Normal 39.0-259.0 [facility]) Comment on above: Performed By: #### D IFF, CBC, MORPH, BMP, GFR ####[address] [place], [place] [address] Depart Summaryon 01-18-2017 Depart Summary Normal [facility]) Discharge Note-Nursingon Discharge Note-Nursing Normal Count includes the [facility]) Ruslan 01-18-2017 Potassium molar conc 4.8 mmol/L Normal 3.5-5.1 [facility]) Comment on above: Performed By: #### T ROP K, LAC ####Lloyd [address] [place], [place] [address] LACon 01-18-2017 Lactic Acid Lvl 1.2 mmol/L Normal 0.5-2.2 [facility]) Comment on above: Performed By: #### T ROP K, LAC ####Lloyd [address] [place], [place] [address] NAURon 01-18-2017 Sodium 77 mmol/L Normal [facility] ([place]) Comment on above: Performed By: #### D IFF, CBC, MORPH, BMP, GFR ####[address]oyd [address] [place], [place] [address] OSMOUon 01-18-2017 U Osmolality 652 mOsm/kg Normal 390-1090 [facility] ([place]) Comment on above: Performed By: #### D IFF, CBC, MORPH, BMP, GFR ####[address] [place], [place] [address] [facility] History and Physica eduardo 01-18-2017 [facility] History and Physical Normal [facility] ([place]) [facility] In[facility] Patient S ummaryon 01-18-2017 [facility] In[facility] Patient Summary Normal [facility] ([place]) SALon 01-18-2017 Salicylate Level <1.0 Low 10.0-25.0 [facility] ([place]) Comment on above: Performed By: #### A LC, ACETA, FABIOLA ####[address] [place], [place] [address] TOXSCon 01-18-2017 QC TOXSC Valid [facility] ([place]) Comment on above: Performed By: #### Zhao OXSC ####[address] [place], [place] [address] U Ampheta (AO) Negative [facility] ([place]) Comment on above: Performed By: #### Zhao OXSC ####[address] [place], [place] [address] U Jayne (AO) Negative [facility] ([place]) Comment on above: Performed By: #### Zhao OXSC ####[address] [place], [place] [address] U Faizan (AO) Negative [facility] ([place]) Comment on above: Performed By: #### Zhao OXSC ####[address] [place], [place] [address] U Cannab (AO) Positive [facility] ([place]) Comment on above: Performed By: #### T OXSC ####[address] [place], [place] [address] U Cocaine (AO) Negative [facility] ([place]) Comment on above: Performed By: #### T OXSC ####Lloyd [address] [place], [place] [address] U Methadone (AO) Negative [facility] ([place]) Comment on above: Performed By: #### T OXSC ####Lloyd [address] [place], [place] [address] U PCP (AO) Negative [facility] ([place]) Comment on above: Performed By: #### T OXSC ####Lloyd [address] [place], [place] [address] U TCA (AO) Positive [facility] ([place]) Comment on above: Performed By: #### T OXSC ####Lloyd [address] [place], [place] [address] Urine Opiates (AO) Positive [facility] ([place]) Comment on above: Performed By: #### T OXSC ####Lloyd [address] [place], [place] [address] TROPon 01-18-2017 Troponin I.cardiac mass conc ng/mL Normal 0.00-0.30 [facility] ([place]) Comment on above: Result Comment: Belo w measuring range>=0.30 Consistent with cardiac damage, increased clinical risk and possibility of myocardial infarction. Serial measurements, clinical history, appropriate symptoms and/or ECG changes may help assess possibility of AL.*Other non-acute coronary syndrome conditions such as CHF, myocarditis, pulmonary emboli, sepsis and cardiac surgery could result in myocardial damage and increased troponin levels. Performed By: #### T ROP, K, LAC ####[address] [place], [place] [address] UAon 01-18-2017 UA Appear CLEAR Normal [facility] ([place]) Comment on above: Performed By: #### D IFF, CBC, MORPH, BMP, GFR ####[address] [place], [place] [address] UA Blood Negative [facility] ([place]) Comment on above: Performed By: #### D IFF, CBC, MORPH, BMP, GFR ####Lloyd [address] [place], [place] [address] UA Leuk Est Negative [facility] ([place]) Comment on above: Performed By: #### D IFF, CBC, MORPH, BMP, GFR ####[address] [place], [place] [address] UA Nitrite Negative [facility] ([place]) Comment on above: Performed By: #### D IFF, CBC, MORPH, BMP, GFR ####[address] [place] [address] UA pH 5.5 [facility] ([place] Comment on above: Performed By: #### D IFF, CBC, MORPH, BMP, GFR ####Lloyd [address] [place] [address] UA Protein Negative [facility] ([place] Comment on above: Performed By: #### D IFF, CBC, MORPH, BMP, GFR ####[address] [place], [place] [address] UA Spec Grav 1.025 [facility] ([place]) Comment on above: Performed By: #### D IFF, CBC, MORPH, BMP, GFR ####[address] [place], [place] [address] UA Specimen Type Clean Catch [facility] ([place]) Comment on above: Performed By: #### D IFF, CBC, MORPH, BMP, GFR ####[address] [place], [place] [address] UA Urobilinogen 0.2 E.U./dL [facility] ([place]) Comment on above: Performed By: #### D IFF, CBC, MORPH, BMP, GFR ####[address] [place], [place] [address] Urine, color YELLOW [facility] ([place]) Comment on above: Performed By: #### D IFF, CBC, MORPH, BMP, GFR ####Lloyd [address] [place], [place] [address] Urine, glucose Negative Normal [facility] ([place]) Comment on above: Performed By: #### D IFF, CBC, MORPH, BMP, GFR ####[address] [place], [place] [address] Urine, ketones presence Negative Normal A [facility] ([place]) Comment on above: Performed By: #### D IFF, CBC, MORPH, BMP, GFR ####[address] [place], [place] [address] Urine, urobilinogen Negative Normal [facility] ([place]) Comment on above: Performed By: #### D IFF, CBC, MORPH, BMP, GFR ####[address] [place], [place] [address] .GFRon 01-17-2017 eGFR (non-black) 29 ml/min/1.73sqm Normal A [facility] ([place]) Comment on above: Result Comment: GFR Population [...] D IFF, CBC, MORPH, BMP, GFR ####Lloyd [address] [place], [place] [address] eGFR (non-black) 35 ml/min/1.73sqm Normal A [facility] ([place]) Comment on above: Result Comment: GFR Population [...] IFF, CBC, MORPH, BMP, GFR ####Lloyd [address] [place], [place] [address] .Manual Diffon 01-17-2017 Bands 13.0 % High 0.0-5.0 [facility] ([place]) Comment on above: Performed By: #### D IFF, CBC, MORPH, BMP, GFR ####Lloyd [address] [place], [place] [address] Basophil %, Manual 0.0 % Normal 0.0-2.5 Count includes the [facility] ([place]) Comment on above: Performed By: #### D IFF, CBC, MORPH, BMP, GFR ####Lloyd [address] [place], [place] [address] Basophil, Abs Manual 0.00 10 3/mcL Normal 0.00-0.19 A [facility] ([place]) Comment on above: Performed By: #### D IFF, CBC, MORPH, BMP, GFR ####[address] [place], [place] [address] Eosinophil, Abs Manual 0.00 10 3/mcL Normal 0.00-0.40 [facility] ([place]) Comment on above: Performed By: #### D IFF, CBC, MORPH, BMP, GFR ####Lloyd [address] [place], [place] [address] Lymphocyte %, Manual 7.0 % Low 10.0-50.0 [facility] ([place]) Comment on above: Performed By: #### D IFF, CBC, MORPH, BMP, GFR ####Lloyd [address] [place], [place] [address] Lymphocyte, Abs Manual 1.83 10 3/mcL Normal 0.77-3.85 [facility] ([place]) Comment on above: Performed By: #### D IFF, CBC, MORPH, BMP, GFR ####Lloyd [address] [place], [place] [address] Monocyte %, Manual 5.0 % Normal 1.7-13.0 Count includes the [facility] ([place]) Comment on above: Result Comment: 0.0 Performed By: #### D IFF, CBC, MORPH, BMP, GFR ####Lloyd [address] [place], [place] [address] Monocyte, Abs Manual 1.31 10 3/mcL High 0.15-1.00 A [facility] ([place]) Comment on above: Performed By: #### D IFF, CBC, MORPH, BMP, GFR ####Lloyd [address] [place], [place] [address] Neutrophil %, Manual 75.0 % Normal 37.0-80.0 [facility] ([place]) Comment on above: Performed By: #### D IFF, CBC, MORPH, BMP, GFR ####Lloyd [address] [place], [place] [address] Neutrophil, Abs Manual 23.06 10 3/mcL High 2.85-6.16 [facility] ([place]) Comment on above: Performed By: #### D IFF, CBC, MORPH, BMP, GFR ####Lloyd [address] [place], [place] [address] Cells Counted 100 Normal [facility] ([place]) Comment on above: Performed By: #### D IFF, CBC, MORPH, BMP, GFR ####[address] [place], [place] [address] .Morphon 01-17-2017 Platelets Normal Normal [facility]) Comment on above: Performed By: #### D IFF, CBC, MORPH, BMP, GFR ####[address] [place], [place] [address] Smudge Cells Few Normal [facility] ([place]) Comment on above: Performed By: #### D IFF, CBC, MORPH, BMP, GFR ####Lloyd [address] [place], [place] [address] BMPon 01-17-2017 BUN/Creatinine Ratio 13 ratio Normal 7-27 [facility] ([place]) Comment on above: Order Comment: speci men hemolyzed Performed By: #### D IFF, CBC, MORPH, BMP, GFR ####Lloyd [address] [place], [place] [address] Creatinine 2.6 mg/dL High 0.6-1.2 [facility] ([place]) Comment on above: Order Comment: speci men hemolyzed Performed By: #### D IFF, CBC, MORPH, BMP, GFR ####[address] [place], [place] [address] Glucose mass conc 108 mg/dL High 70-105 [facility] ([place] Comment on above: Order Comment: speci men hemolyzed Performed By: #### D IFF, CBC, MORPH, BMP, GFR ####[address] [place], [place] [address] CO2 25 mmol/L Normal 22-29 [facility] ([place]) Comment on above: Order Comment: speci men hemolyzed Performed By: #### D IFF, CBC, MORPH, BMP, GFR ####Lloyd [address] [place], [place] [address] Electrolyte Balance 13.0 mEq/L Normal [facility] ([place]) Comment on above: Order Comment: speci men hemolyzed Performed By: #### D IFF, CBC, MORPH, BMP, GFR ####Lloyd [address] [place], [place] [address] Calcium 10.1 mg/dL Normal 8.4-10.2 [facility] ([place]) Comment on above: Order Comment: speci men hemolyzed Performed By: #### D IFF, CBC, MORPH, BMP, GFR ####Lloyd [address] [place], [place] [address] Urea nitrogen 32.7 mg/dL High 7.0-18.0 [facility] ([place]) Comment on above: Order Comment: speci men hemolyzed Performed By: #### D IFF, CBC, MORPH, BMP, GFR ####Lloyd [address] [place], [place] [address] Chloride 93 mmol/L Low 98-107 [facility] ([place]) Comment on above: Order Comment: speci men hemolyzed Performed By: #### D IFF, CBC, MORPH, BMP, GFR ####[address] [place], [place] [address] Potassium molar conc 7.5 mmol/L Critically abnormal 3.5-5.1 [facility] ([place]) Comment on above: Order Comment: speci men hemolyzed Performed By: #### D IFF, CBC, MORPH, BMP, GFR ####Lloyd [address] [place], [place] [address] Sodium 131 mmol/L Low 136-146 [facility] ([place] Comment on above: Order Comment: speci men hemolyzed Performed By: #### D IFF, CBC, MORPH, BMP, GFR ####Lloyd [address] [place], [place] [address] CBCon 01-17-2017 Erythrocyte distribution width Auto Ratio (RBC) 14.0 % Normal 11.5-14.5 [facility] ([place]) Comment on above: Performed By: #### D IFF, CBC, MORPH, BMP, GFR ####[address] [place], [place] [address] Erythrocytes (RBC) 6.31 10 6/mcL High 4.04-6.13 [facility] ([place]) Comment on above: Performed By: #### D IFF, CBC, MORPH, BMP, GFR ####[address] [place], [place] [address] Hematocrit (HCT) 55.6 % High 42.0-52.0 [facility] ([place] Comment on above: Performed By: #### D IFF, CBC, MORPH, BMP, GFR ####[address] [place], [place] [address] Hemoglobin mass conc (Bld) 18.5 G/dL High 14.0-18.0 [facility] ([place] Comment on above: Performed By: #### D IFF, CBC, MORPH, BMP, GFR ####[address] [place], [place] [address] MCH 29.3 pg Normal 27.0-31.2 [facility] ([place]) Comment on above: Performed By: #### D IFF, CBC, MORPH, BMP, GFR ####Lloyd [address] [place], [place] [address] MCHC mass conc (RBC) 33.2 G/dL Normal 31.8-35.4 [facility] ([place]) Comment on above: Performed By: #### D IFF, CBC, MORPH, BMP, GFR ####Lloyd [address] [place], [place] [address] MCV 88.2 fL Normal 80.0-94.0 [facility] ([place]) Comment on above: Performed By: #### D IFF, CBC, MORPH, BMP, GFR ####Lloyd [address] [place], [place] [address] Platelet mean volume (PMV) 7.3 fL Low 7.4-10.4 [facility] ([place]) Comment on above: Performed By: #### D IFF, CBC, MORPH, BMP, GFR ####Lloyd [address] [place], [place] [address] Platelets 517 10 3/mcL High 130-400 [facility] ([place] Comment on above: Performed By: #### D IFF, CBC, MORPH, BMP, GFR ####[address] [place], [place] [address] WBC (Leukocytes) 26.20 10 3/mcL Critically abnormal 4.60-10.80 [facility] ([place] Comment on above: Performed By: #### D IFF, CBC, MORPH, BMP, GFR ####[address] [place], [place] [address] CKon 01-17-2017 Creatine kinase (CK) 265 U/L High 38-174 [facility] ([place]) Comment on above: Performed By: #### C K ####[address] [place], [place] [address] HFPon 01-17-2017 Alanine aminotransferase (ALT) 27 U/L Normal 10-35 [facility] ([place] Comment on above: Performed By: #### H FP ####[address]oyd [address] [place], [place] [address] Albumin/Globulin Ratio 1.4 {ratio} Normal 1.1-2.5 A [facility] ([place] Comment on above: Performed By: #### H FP ####Lloyd [address] [place], [place] [address] Alk Phos 123 IU/L Normal 40-135 [facility] ([place] Comment on above: Performed By: #### H FP ####Llyod [address] [place], [place] [address] Aspartate aminotransferase (AST) 25 U/L Normal 10-40 [facility] ([place] Comment on above: Performed By: #### H FP ####Lloyd [address] [place], [place] [address] Bili Direct 0.1 mg/dL Normal 0.1-0.5 [facility] ([place] Comment on above: Performed By: #### H FP ####Lloyd [address] [place], [place] [address] Bili Indirect 0.4 mg/dL Normal [facility] ([place] Comment on above: Performed By: #### H FP ####[address] [place], [place] [address] Bili Total 0.5 mg/dL Normal 0.2-1.0 [facility] ([place] Comment on above: Performed By: #### H FP ####Lloyd [address] [place], [place] [address] Globulin 3.7 G/dL Normal [facility] ([place] Comment on above: Performed By: #### H FP ####Lloyd [address] [place], [place] [address] Protein 9.0 G/dL High 6.0-8.3 [facility] ([place] Comment on above: Performed By: #### H FP ####Lloyd [address] [place], [place] [address] Albumin 5.3 G/dL High 3.5-5.0 [facility] ([place] Comment on above: Performed By: #### H ####Lloyd [address] [place], [place] [address] XR CHEST 1 VIEWon 01-17-2017 XR CHEST [...] PM Sign Date: 01/17/2017 9:24:55 PM Normal [facility]) [facility] Note on 12-03-2016 [facility] Note Normal [facility]) Patient Summary Documentson 12-03-2016 Patient Summary Documents Normal [facility]) Vital Signs Date Time Vital Sign Value Performing Clinician Facility 12-04-2024 08:06-0400 Body temperature 97 [degF] Kelvin Fernando MD Work Phone: [facility] 12-04-2024 08:06-0400 Diastolic blood pressure 102 mm[Hg] Kelvin Fernando MD Work Phone: [facility] 12-04-2024 08:06-0400 Heart rate 103 /min Kelvin Fernando MD Work Phone: [facility] 12-04-2024 08:06-0400 Respiratory rate 16 /min Kelvin Fernando MD Work Phone: [facility] 12-04-2024 08:06-0400 SaO2% (BldA) [Mass fraction] 96 % Kelvin Fernando MD Work Phone: [facility] 12-04-2024 08:06-0400 Systolic blood pressure 138 mm[Hg] Kelvin Fernando MD Work Phone: [facility] 12-01-2024 05:55-0400 Body height 177.8 cm Kelvin Fernando MD Work Phone: [facility] 11-29-2024 18:08-0400 Body mass index (BMI) [Ratio] 23.68 kg/m2 Kelvin Fernando MD Work Phone: [facility] 11-29-2024 18:08-0400 Body weight 74.84 kg Kelvin Fernando MD Work Phone: [facility] 08-10-2024 10:32-0400 Diastolic blood pressure 112 mm[Hg] Ramesh Grimaldo MD Work Phone: [facility] 08-10-2024 10:32-0400 Heart rate 110 /min Ramesh Grmialdo MD Work Phone: [facility] 08-10-2024 10:32-0400 Respiratory rate 16 /min Ramesh Grimaldo MD Work Phone: [facility] 08-10-2024 10:32-0400 SaO2% (BldA) [Mass fraction] 99 % Ramesh Grimaldo MD Work Phone: [facility] 08-10-2024 10:32-0400 Systolic blood pressure 154 mm[Hg] Ramesh Grimaldo MD Work Phone: [facility] 08-10-2024 09:53-0400 Body height 177.8 cm Ramesh Grimaldo MD Work Phone: [facility] 08-10-2024 09:53-0400 Body mass index (BMI) [Ratio] 23.68 kg/m2 Ramesh Grimaldo MD Work Phone: [facility] 08-10-2024 09:53-0400 Body temperature 97.81 [degF] Ramesh Grimaldo MD Work Phone: [facility] 08-10-2024 09:53-0400 Body weight 74.84 kg Ramesh Grimaldo MD Work Phone: [facility] 05-28-2024 14:36-0500 Diastolic blood pressure 94 mm[Hg] Marquise Nair MD Work Phone: [facility] 05-28-2024 14:36-0500 Heart rate 117 /min Marquise Nair MD Work Phone: [facility] 05-28-2024 14:36-0500 Respiratory rate 16 /min Marquise Nair MD Work Phone: [facility] 05-28-2024 14:36-0500 SaO2% (BldA) [Mass fraction] 97 % Marquise Nair MD Work Phone: [facility] 05-28-2024 14:36-0500 Systolic blood pressure 128 mm[Hg] Marquise Nair MD Work Phone: [facility] 05-27-2024 09:01-0500 Body height 177.8 cm Marquise Nair MD Work Phone: [facility] 05-27-2024 09:01-0500 Body mass index (BMI) [Ratio] 23.68 kg/m2 Marquise Nair MD Work Phone: [facility] 05-27-2024 09:01-0500 Body temperature 98.29 [degF] Marquise Nair MD Work Phone: [facility] 05-27-2024 09:01-0500 Body weight 74.84 kg Marquise Nair MD Work Phone: [facility] 05-17-2024 08:41-0500 Body height 177.8 cm Estefani Garces MD Work Phone: [facility] 05-17-2024 08:41-0500 Body mass index (BMI) [Ratio] 23.68 kg/m2 Estefani Garces MD Work Phone: [employer] [facility] 05-17-2024 08:41-0500 Body weight 74.84 kg Estefani Garces MD Work Phone: [facility] 04-05-2024 08:58-0500 Body height 177.8 cm Estefani Garces MD Work Phone: [facility] 04-05-2024 08:58-0500 Body mass index (BMI) [Ratio] 23.68 kg/m2 Estefani Garecs MD Work Phone: [facility] 04-05-2024 08:58-0500 Body weight 74.84 kg Estefani Garces MD Work Phone: [facility] 03-13-2024 11:35-0500 Body height 177.8 cm Raiza Mcmillan [employer] Work Phone: [facility] 03-13-2024 11:35-0500 Body mass index (BMI) [Ratio] 23.76 kg/m2 Raiza Mcmillan [employer] - [employer]IST[employer] Work Phone: [facility] 03-13-2024 11:35-0500 Body temperature 97.81 [degF] Raiza Bansaly [employer] - [employer] ASSIST[employer] Work Phone: [facility] 03-13-2024 11:35-0500 Body weight 75.1 kg Raiza Bansaly [employer]CH[employer] - [employer] ASSISTANT Work Phone: [facility] 03-13-2024 11:35-0500 Diastolic blood pressure 74 mm[Hg] Raiza Mcmillan [employer] MECH[employer]IC - [employer] ASSISTANT Work Phone: [facility] 03-13-2024 11:35-0500 Heart rate 73 /min Raiza Mcmillan [employer] - [employer]IST[employer] Work Phone: [facility] 03-13-2024 11:35-0500 Systolic blood pressure 119 mm[Hg] Raiza Mcmillan [employer]CH[employer] - [employer] ASSIST[employer] Work Phone: [facility] 03-08-2024 14:04-0500 Body height 175.3 cm Estefani Garces MD Work Phone: [facility] 03-08-2024 14:04-0500 Body mass index (BMI) [Ratio] 23.63 kg/m2 Estefani Garces MD Work Phone: [facility] 03-08-2024 14:04-0500 Body weight 72.58 kg Estefani Garces MD Work Phone: [facility] 03-06-2024 15:07-0500 Diastolic blood pressure 104 mm[Hg] DEAN Braxton MD Work Phone: [facility] 03-06-2024 15:07-0500 Heart rate 88 /min DEAN Braxton MD Work Phone: [facility] 03-06-2024 15:07-0500 Respiratory rate 16 /min DEAN Braxton MD Work Phone: [facility] 03-06-2024 15:07-0500 SaO2% (BldA) [Mass fraction] 95 % DEAN Braxton MD Work Phone: [facility] 03-06-2024 15:07-0500 Systolic blood pressure 154 mm[Hg] DEAN Braxton MD Work Phone: [facility] 03-06-2024 01:32-0500 Body height 175.3 cm DEAN Braxton MD Work Phone: [facility] 03-06-2024 01:32-0500 Body mass index (BMI) [Ratio] 23.63 kg/m2 DEAN Braxton MD Work Phone: [facility] 03-06-2024 01:32-0500 Body weight 72.58 kg DEAN Braxton MD Work Phone: [facility] 03-05-2024 21:24-0500 Body temperature 98.29 [degF] DEAN Braxton MD Work Phone: [facility] 03-02-2024 11:33-0500 Body height 177.8 cm Yoanna Castro [employer] MECH[employer]IC - [employer]ISTANT Work Phone: [facility] 03-02-2024 11:33-0500 Body mass index (BMI) [Ratio] 22.62 kg/m2 Yoanna Castro [employer] MECH[employer]IC - [employer] ASSISTANT Work Phone: [facility] 03-02-2024 11:33-0500 Body temperature 98.2 [degF] Yoanna Castro [employer] MECH[employer]IC - [employer] ASSISTANT Work Phone: [facility] 03-02-2024 11:33-0500 Body weight 71.5 kg Yoanna Castro [employer] MECH[employer]IC - [employer] ASSISTANT Work Phone: [facility] 03-02-2024 11:33-0500 Diastolic blood pressure 98 mm[Hg] Yoanna Castro [employer]LIOLA MECHANIC - [employer] ASSISTANT Work Phone: [employer] [facility] 03-02-2024 11:33-0500 Heart rate 82 /min Yoanna Castro [employer]LI[employer]A MECHANIC - [employer] ASSISTANT Work Phone: [employer] [facility] 03-02-2024 11:33-0500 Systolic blood pressure 146 mm[Hg] Yoanna Castro APRN - MAILROOM ASSISTANT Work Phone: [employer] [facility] 02-14-2024 04:58-0400 Diastolic blood pressure 69 mm[Hg] Marquise Nair MD Work Phone: [employer] 02-14-2024 04:58-0400 Heart rate 94 /min Marquise Nair MD Work Phone: [facility] 02-14-2024 04:58-0400 Systolic blood pressure 116 mm[Hg] Marquise Nair MD Work Phone: [facility] 02-14-2024 04:43-0400 Body height 177.8 cm Marquise Nair MD Work Phone: [facility] 02-14-2024 04:43-0400 Body mass index (BMI) [Ratio] 22.62 kg/m2 Marquise Nair MD Work Phone: [facility] 02-14-2024 04:43-0400 Body weight 71.5 kg Marquise Nair MD Work Phone: [facility] 02-14-2024 04:41-0400 Body temperature 97.7 [degF] Marquise Nair MD Work Phone: [facility] 02-14-2024 04:41-0400 Respiratory rate 12 /min Marquise Nair MD Work Phone: [facility] 02-14-2024 04:41-0400 SaO2% (BldA) [Mass fraction] 99 % Marquise Nair MD Work Phone: [facility] 02-13-2024 11:10-0400 Body temperature 97.11 [degF] Betsy Campos DO Work Phone: [facility] 02-13-2024 11:10-0400 Diastolic blood pressure 98 mm[Hg] Betsy Campos DO Work Phone: [facility] 02-13-2024 11:10-0400 Heart rate 100 /min Betsy Campos DO Work Phone: [facility] 02-13-2024 11:10-0400 Respiratory rate 22 /min Betsy Campos DO Work Phone: [facility] 02-13-2024 11:10-0400 SaO2% (BldA) [Mass fraction] 97 % Betsy Campos DO Work Phone: [facility] 02-13-2024 11:10-0400 Systolic blood pressure 122 mm[Hg] Betsy Campos DO Work Phone: [facility] 02-13-2024 08:39-0400 Body height 177.8 cm Betsy Campos DO Work Phone: [facility] 02-13-2024 06:00-0400 Body mass index (BMI) [Ratio] 22.11 kg/m2 Betsy Campos DO Work Phone: [facility] 02-13-2024 06:00-0400 Body weight 69.9 kg Betsy Campos DO Work Phone: [facility] 02-08-2024 06:30-0400 Diastolic blood pressure 99 mm[Hg] Betsy Blum MD Work Phone: [facility] 02-08-2024 06:30-0400 Heart rate 107 /min Betsy Blum MD Work Phone: [facility] 02-08-2024 06:30-0400 SaO2% (BldA) [Mass fraction] 93 % Betsy Blum MD Work Phone: [facility] 02-08-2024 06:30-0400 Systolic blood pressure 155 mm[Hg] Betsy Blum MD Work Phone: [facility] 02-08-2024 04:31-0400 Body height 177.8 cm Betsy Blum MD Work Phone: [employer] 02-08-2024 04:31-0400 Body mass index (BMI) [Ratio] 22.96 kg/m2 Betsy Blum MD Work Phone: [facility] 02-08-2024 04:31-0400 Body temperature 98.6 [degF] Betsy Blum MD Work Phone: [facility] 02-08-2024 04:31-0400 Body weight 72.58 kg Betsy Blum MD Work Phone: [facility] 02-08-2024 04:31-0400 Respiratory rate 18 /min Betsy Blum MD Work Phone: [facility] 01-29-2024 00:13-0400 Diastolic blood pressure 87 mm[Hg] Lauri Dior MD Work Phone: [facility] 01-29-2024 00:13-0400 Heart rate 95 /min Lauri Dior MD Work Phone: [facility] 01-29-2024 00:13-0400 Respiratory rate 18 /min Lauri Dior MD Work Phone: [employer] [facility] 01-29-2024 00:13-0400 SaO2% (BldA) [Mass fraction] 97 % Lauri Dior MD Work Phone: [facility] 01-29-2024 00:13-0400 Systolic blood pressure 134 mm[Hg] Lauri Dior MD Work Phone: [facility] 01-28-2024 22:14-0400 Body height 177.8 cm Lauri Dior MD Work Phone: [employer] 01-28-2024 22:14-0400 Body mass index (BMI) [Ratio] 23.24 kg/m2 Lauri Dior MD Work Phone: [employer] 01-28-2024 22:14-0400 Body temperature 98.2 [degF] Lauri Dior MD Work Phone: [facility] 01-28-2024 22:14-0400 Body weight 73.48 kg Lauri Dior MD Work Phone: [facility] 10-27-2023 07:54-0400 Body height 177.8 cm Jamey No MD Work Phone: [facility] 10-27-2023 07:54-0400 Body mass index (BMI) [Ratio] 28.7 kg/m2 Jamey No MD Work Phone: [facility] 10-27-2023 07:54-0400 Body weight 90.72 kg Jamey No MD Work Phone: [facility] 10-27-2023 07:54-0400 Diastolic blood pressure 68 mm[Hg] Jamey No MD Work Phone: [facility] 10-27-2023 07:54-0400 Systolic blood pressure 128 mm[Hg] Jamey No MD Work Phone: [facility] 10-21-2023 15:38-0400 Body height 177.8 cm Giovani Collado MD Work Phone: [facility] 10-21-2023 15:38-0400 Body mass index (BMI) [Ratio] 28.7 kg/m2 Giovani Collado MD Work Phone: [facility] 10-21-2023 15:38-0400 Body temperature 97.5 [degF] Giovani Collado MD Work Phone: [facility] 10-21-2023 15:38-0400 Body weight 90.72 kg Giovani Collado MD Work Phone: [facility] 10-21-2023 15:38-0400 Diastolic blood pressure 85 mm[Hg] Giovani Collado MD Work Phone: [facility] 10-21-2023 15:38-0400 Heart rate 72 /min Giovani Collado MD Work Phone: [facility] 10-21-2023 15:38-0400 Respiratory rate 14 /min Giovani Collado MD Work Phone: [facility] 10-21-2023 15:38-0400 SaO2% (BldA) [Mass fraction] 95 % Giovani Collado MD Work Phone: [facility] 10-21-2023 15:38-0400 Systolic blood pressure 112 mm[Hg] Giovani Collado MD Work Phone: [facility] 04-25-2023 00:25-0500 Heart rate 97 /min Lauri Dior MD Work Phone: [facility] 04-25-2023 00:25-0500 Respiratory rate 19 /min Lauri Dior MD Work Phone: [employer] 04-25-2023 00:25-0500 SaO2% (BldA) [Mass fraction] 94 % Lauri Dior MD Work Phone: [facility] 04-25-2023 00:24-0500 Diastolic blood pressure 91 mm[Hg] Lauri Dior MD Work Phone: [facility] 04-25-2023 00:24-0500 Systolic blood pressure 111 mm[Hg] Lauri Dior MD Work Phone: [facility] 04-24-2023 23:39-0500 Body height 177.8 cm Lauri Dior MD Work Phone: [facility] 04-24-2023 23:39-0500 Body mass index (BMI) [Ratio] 29.56 kg/m2 Lauri Dior MD Work Phone: [facility] 04-24-2023 23:39-0500 Body weight 93.44 kg Lauri Dior MD Work Phone: [facility] 04-24-2023 23:22-0500 Body temperature 98.29 [degF] Lauri Dior MD Work Phone: [employer] [facility] 04-22-2023 11:05-0500 Body temperature 96.49 [degF] Hitesh Gombash DO Work Phone: [employer] 04-22-2023 11:05-0500 Diastolic blood pressure 81 mm[Hg] Hitesh Gombash DO Work Phone: [facility] 04-22-2023 11:05-0500 Heart rate 102 /min Hitesh Gombash DO Work Phone: [facility] 04-22-2023 11:05-0500 Respiratory rate 18 /min Hitesh Gombash DO Work Phone: [facility] 04-22-2023 11:05-0500 SaO2% (BldA) [Mass fraction] 94 % Hitesh Gombash DO Work Phone: [facility] 04-22-2023 11:05-0500 Systolic blood pressure 117 mm[Hg] Hitesh Gombash DO Work Phone: [facility] 04-21-2023 02:20-0500 Body height 177.8 cm Hitesh Gombash DO Work Phone: [facility] 04-21-2023 02:20-0500 Body mass index (BMI) [Ratio] 29.56 kg/m2 Hitesh Gombash DO Work Phone: [facility] 04-21-2023 02:20-0500 Body weight 93.44 kg Hitesh Gombash DO Work Phone: [facility] 04-17-2023 11:34-0500 Body temperature 95.31 [degF] Marquise Nair MD Work Phone: [facility] 04-17-2023 11:34-0500 Diastolic blood pressure 114 mm[Hg] Marquise Nair MD Work Phone: [facility] 04-17-2023 11:34-0500 Heart rate 88 /min Marquise Nair MD Work Phone: [facility] 04-17-2023 11:34-0500 Respiratory rate 16 /min Marquise Nair MD Work Phone: [facility] 04-17-2023 11:34-0500 SaO2% (BldA) [Mass fraction] 95 % Marquise Nair MD Work Phone: [facility] 04-17-2023 11:34-0500 Systolic blood pressure 147 mm[Hg] Marquise Nair MD Work Phone: [facility] 04-17-2023 01:45-0500 Body mass index (BMI) [Ratio] 29.2 kg/m2 Marquise Nair MD Work Phone: [employer] 04-17-2023 01:45-0500 Body weight 92.31 kg Marquise Nair MD Work Phone: [employer] 04-16-2023 21:27-0500 Body height 177.8 cm Marquise Nair MD Work Phone: [employer] 02-03-2023 13:31-0400 Body height 177.8 cm Giovani Collado MD Work Phone: [employer] 02-03-2023 13:11-0400 Heart rate 115 /min Giovani Collado MD Work Phone: [employer] 02-03-2023 13:11-0400 Respiratory rate 16 /min Giovani Collado MD Work Phone: [employer] 02-03-2023 13:11-0400 SaO2% (BldA) [Mass fraction] 97 % Giovani Collado MD Work Phone: [employer] 02-03-2023 11:34-0400 Body temperature 97.81 [degF] Giovani Collado MD Work Phone: [employer] 02-03-2023 11:34-0400 Diastolic blood pressure 90 mm[Hg] Giovani Collado MD Work Phone: [employer] 02-03-2023 11:34-0400 Systolic blood pressure 121 mm[Hg] Giovani Collado MD Work Phone: [employer] 02-01-2023 06:00-0400 Body mass index (BMI) [Ratio] 30.4 kg/m2 Giovani Collado MD Work Phone: [employer] 02-01-2023 06:00-0400 Body weight 96.1 kg Giovani Collado MD Work Phone: [employer] 01-31-2023 10:01-0400 SaO2% (BldA) [Mass fraction] 94.8 % Giovani Collado MD Work Phone: [facility] 01-29-2023 22:47-0400 SaO2% (BldA) [Mass fraction] 91.2 % Giovani Collado MD Work Phone: [facility] 10-10-2022 15:55-0400 Body height 177.8 cm Betsy Campos DO Work Phone: [facility] 10-10-2022 15:55-0400 Body mass index (BMI) [Ratio] 28.7 kg/m2 Bets[facility]aci DO [facility] 10-10-2022 15:55-0400 Body temperature 98.1 [degF] Betsy Kingaci DO Work Phone: [facility] 10-10-2022 15:55-0400 Body weight 90.72 kg Betsy Kingaci DO Work Phone: [facility] 10-10-2022 15:55-0400 Diastolic blood pressure 92 mm[Hg] Betsy Kingaci DO Work Phone: [facility] 10-10-2022 15:55-0400 Heart rate 91 /min Betsy Kingaci DO Work Phone: [facility] 10-10-2022 15:55-0400 Respiratory rate 17 /min Betsy Kingaci DO Work Phone: [facility] 10-10-2022 15:55-0400 SaO2% (BldA) [Mass fraction] 96 % Betsy Kingaci DO Work Phone: [facility] 10-10-2022 15:55-0400 Systolic blood pressure 135 mm[Hg] Betsy Kingaci DO Work Phone: [facility] 09-25-2022 00:03-0400 Body temperature 97.52 [degF] BASIL WILKINS MD [facility] 09-25-2022 00:03-0400 Diastolic Blood Pressure Non-Invasive 112 1 BASIL WILKINS MD [facility] 09-25-2022 00:03-0400 Heart rate 99 /min BASIL WILKINS MD [facility] 09-25-2022 00:03-0400 Respiratory rate 18 /min BASIL WILKINS MD [facility] 09-25-2022 00:03-0400 Systolic Blood Pressure Non-Invasive 139 1 BASIL WILKINS MD [facility] 09-24-2022 23:31-0400 Reason For Taking VItal Signs BASIL WILKINS MD [facility] 09-24-2022 22:25-0400 Body height 177.8 cm BASIL WILKINS MD [facility] 09-24-2022 22:25-0400 Body temperature 97.52 [degF] BASIL WILKINS MD [facility] 09-24-2022 22:25-0400 Body weight 90.9 kg BASIL WILKINS MD [facility] 09-24-2022 22:25-0400 Diastolic Blood Pressure Non-Invasive 82 1 BASIL WILKINS MD [facility] 09-24-2022 22:25-0400 Heart rate 133 /min BASIL WILKINS MD [facility] 09-24-2022 22:25-0400 Respiratory rate 20 /min BASIL WILKINS MD [facility] 09-24-2022 22:25-0400 Systolic Blood Pressure Non-Invasive 119 1 BASIL WILKINS MD [facility] 09-19-2022 07:02-0400 Diastolic blood pressure 121 mm[Hg] Ene Sarabia DO Work Phone: [facility] 09-19-2022 07:02-0400 Heart rate 91 /min Eneav Sarabia DO Work Phone: [facility] 09-19-2022 07:02-0400 Systolic blood pressure 162 mm[Hg] Ene No DO Work Phone: [facility] 09-19-2022 05:03-0400 Respiratory rate 16 /min Ene No DO Work Phone: [facility] 09-19-2022 05:03-0400 SaO2% (BldA) [Mass fraction] 86 % Eneav Sarabia DO Work Phone: [facility] 09-19-2022 04:02-0400 Body temperature 98.8 [degF] Eneav Sarabia DO Work Phone: [facility] 09-18-2022 20:31-0400 Body height 177.8 cm Eneav Sarabia DO Work Phone: [facility] 09-18-2022 20:31-0400 Body mass index (BMI) [Ratio] 27.46 kg/m2 Eneav Sarabia DO Work Phone: [facility] 09-18-2022 20:31-0400 Body weight 86.82 kg Eneav Sarabia DO Work Phone: [facility] 09-16-2022 15:20-0400 Respiratory rate 30 /min Prince Nesheim DO Work Phone: [facility] 09-16-2022 15:11-0400 Heart rate 116 /min Prince Nesheim DO Work Phone: [facility] 09-16-2022 15:11-0400 SaO2% (BldA) [Mass fraction] 93 % Prince Nesheim DO Work Phone: [facility] 09-16-2022 15:00-0400 Diastolic blood pressure 118 mm[Hg] Prince Nesheim DO Work Phone: [facility] 09-16-2022 15:00-0400 Systolic blood pressure 155 mm[Hg] Prince Nesheim DO Work Phone: [facility] 09-16-2022 10:38-0400 Body temperature 97.39 [degF] Prince Nesheim DO Work Phone: [facility] 09-16-2022 00:53-0400 Body height 177.8 cm Prince Nesheim DO Work Phone: [facility] 09-16-2022 00:53-0400 Body mass index (BMI) [Ratio] 28.7 kg/m2 Prince Nesheim DO Work Phone: [facility] 09-16-2022 00:53-0400 Body weight 90.72 kg Prince Nesheim DO Work Phone: [facility] 08-26-2022 21:02-0400 Body temperature 97.7 [degF] Basil Mariano MD Work Phone: [facility] 08-26-2022 21:02-0400 Diastolic blood pressure 117 mm[Hg] Basil Mariano MD Work Phone: [facility] 08-26-2022 21:02-0400 Heart rate 88 /min Basil Mariano MD Work Phone: [facility] 08-26-2022 21:02-0400 Respiratory rate 20 /min Basil Mariano MD Work Phone: [facility] 08-26-2022 21:02-0400 SaO2% (BldA) [Mass fraction] 93 % Basil Mariano MD Work Phone: [facility] 08-26-2022 21:02-0400 Systolic blood pressure 177 mm[Hg] Basil Mariano MD Work Phone: [facility] 08-26-2022 09:12-0400 Body height 177.8 cm Basil Mariano MD Work Phone: [facility] 08-26-2022 09:12-0400 Body mass index (BMI) [Ratio] 28.7 kg/m2 Basil Mariano MD Work Phone: [facility] 08-26-2022 09:12-0400 Body weight 90.72 kg Basil Mariano MD Work Phone: [facility] 08-06-2022 00:15-0400 Body temperature 98.01 [degF] Feliciano Leos MD Work Phone: [facility] 08-06-2022 00:15-0400 Diastolic blood pressure 95 mm[Hg] Feliciano Leos MD Work Phone: [facility] 08-06-2022 00:15-0400 Heart rate 90 /min Feliciano Leos MD Work Phone: [facility] 08-06-2022 00:15-0400 Respiratory rate 20 /min Feliciano Leos MD Work Phone: [facility] 08-06-2022 00:15-0400 SaO2% (BldA) [Mass fraction] 94 % Feliciano Leos MD Work Phone: [facility] 08-06-2022 00:15-0400 Systolic blood pressure 136 mm[Hg] Feliciano Leos MD Work Phone: [facility] 07-28-2022 23:00-0400 Diastolic blood pressure 91 mm[Hg] Betsy Rain MD Work Phone: [facility] 07-28-2022 23:00-0400 Heart rate 95 /min Betsy Rain MD Work Phone: [facility] 07-28-2022 23:00-0400 SaO2% (BldA) [Mass fraction] 95 % Betsy Rain MD Work Phone: [facility] 07-28-2022 23:00-0400 Systolic blood pressure 127 mm[Hg] Betsy Rain MD Work Phone: [facility] 07-28-2022 21:36-0400 Body height 177.8 cm Betsy Rain MD Work Phone: [facility] 07-28-2022 21:36-0400 Body mass index (BMI) [Ratio] 26.54 kg/m2 Betsy Rain MD Work Phone: [facility] 07-28-2022 21:36-0400 Body temperature 97.9 [degF] Betsy Rain MD Work Phone: [facility] 07-28-2022 21:36-0400 Body weight 83.92 kg Betsy Rain MD Work Phone: [facility] 07-28-2022 21:36-0400 Respiratory rate 15 /min Betsy Rain MD Work Phone: [facility] 04-24-2022 15:34-0500 Body mass index (BMI) [Ratio] 28.7 kg/m2 Kd Toledo DO Work Phone: [facility] 04-24-2022 15:34-0500 Body temperature 97.9 [degF] Kd Toledo DO Work Phone: [facility] 04-24-2022 15:34-0500 Body weight 90.72 kg Kd Cherrybour DO Work Phone: [facility] 04-24-2022 15:34-0500 Diastolic blood pressure 97 mm[Hg] Kd Cherrybour DO Work Phone: [facility] 04-24-2022 15:34-0500 Heart rate 82 /min Kd Cherrybour DO Work Phone: [facility] 04-24-2022 15:34-0500 Respiratory rate 20 /min Kd Cherrybour DO Work Phone: [facility] 04-24-2022 15:34-0500 SaO2% (BldA) [Mass fraction] 97 % Kd Cherrybour DO Work Phone: [facility] 04-24-2022 15:34-0500 Systolic blood pressure 122 mm[Hg] Kd Toledo DO Work Phone: [facility] 09-26-2021 16:19-0400 Diastolic blood pressure 66 mm[Hg] Miquel Porter MD Work Phone: [facility] 09-26-2021 16:19-0400 Systolic blood pressure 101 mm[Hg] Miquel Porter MD Work Phone: [facility] 09-26-2021 16:11-0400 Body temperature 97.39 [degF] Miquel Porter MD Work Phone: [facility] 09-26-2021 16:11-0400 Heart rate 80 /min Miquel Porter MD Work Phone: [facility] 09-26-2021 16:11-0400 Respiratory rate 14 /min Miquel Porter MD Work Phone: [facility] 09-26-2021 16:11-0400 SaO2% (BldA) [Mass fraction] 96 % Miquel Porter MD Work Phone: [facility] 09-26-2021 06:00-0400 Body mass index (BMI) [Ratio] 29.96 kg/m2 Miquel Porter MD Work Phone: [facility] 09-26-2021 06:00-0400 Body weight 94.7 kg Miquel Porter MD Work Phone: [facility] 09-23-2021 22:55-0400 Body height 177.8 cm Miquel Porter MD Work Phone: [facility] 07-26-2021 19:25-0400 Body height 177.8 cm Brittany Chou DO Work Phone: [facility] 07-26-2021 19:25-0400 Body mass index (BMI) [Ratio] 29.56 kg/m2 Brittany Chou DO Work Phone: [facility] 07-26-2021 19:25-0400 Body temperature 98.4 [degF] Brittany Chou DO Work Phone: [facility] 07-26-2021 19:25-0400 Body weight 93.44 kg Brittanyfartnu Chou DO Work Phone: [employer] 07-26-2021 19:25-0400 Diastolic blood pressure 122 mm[Hg] Brittany José Antonio DO [facility] 07-26-2021 19:25-0400 Heart rate 110 /min Brittany José Antonio DO Work Phone: [facility] 07-26-2021 19:25-0400 Respiratory rate 20 /min Brittany José Antonio DO Work Phone: [facility] 07-26-2021 19:25-0400 SaO2% (BldA) [Mass fraction] 98 % Brittany José Antonio DO Work Phone: [facility] 07-26-2021 19:25-0400 Systolic blood pressure 161 mm[Hg] Brittany Chou DO Work Phone: [facility] 04-13-2021 15:44-0500 Diastolic blood pressure 99 mm[Hg] Prince Nesheim DO Work Phone: [facility] 04-13-2021 15:44-0500 Heart rate 94 /min Prince Nesheim DO Work Phone: [facility] 04-13-2021 15:44-0500 Respiratory rate 20 /min Prince Nesheim DO Work Phone: [facility] 04-13-2021 15:44-0500 SaO2% (BldA) [Mass fraction] 98 % Prince Nesheim DO Work [facility]: [facility] 04-13-2021 15:44-0500 Systolic blood pressure 156 mm[Hg] Prince Nesheim DO Work Phone: [facility] 04-13-2021 11:22-0500 Body height 177.8 cm Prince Nesheim DO Work Phone: [facility] 04-13-2021 11:22-0500 Body mass index (BMI) [Ratio] 29.56 kg/m2 Prince Nesheim DO Work Phone: [facility] 04-13-2021 11:22-0500 Body temperature 98.2 [degF] Prince Nesheim DO Work Phone: [facility] 04-13-2021 11:22-0500 Body weight 93.44 kg Prince Nesheim DO Work Phone: [facility] 02-16-2021 06:00-0400 Body height 177.8 cm Josiah [...] 166 mm[Hg] Marquise Nair MD Work Phone: [facility] Work Phone: Comment on above: Dr. Nair [...] (Body Mass Index) 30.85 kg/m2 Jamison Goodrich [employer] Work Phone: 07-03-2020 23:00-0400 Body weight 97.52 kg Jamison CARRERA Work Phone: 07-03-2020 23:00-0400 Height 177.8 cm Jamison Goodrich [employer] Work Phone: 04-05-2020 11:27-0500 BP Diastolic 112 mm[Hg] [facility] [employer] [facility] [place] 04-05-2020 11:27-0500 BP Systolic 162 mm[Hg] [facility] [employer] [facility] , [place] 04-05-2020 11:27-0500 Pulse (Heart Rate) 108 /min [facility] [employer] [facility], [place] 04-05-2020 11:27-0500 Pulse Oximetry 98 % [facility] [employer] [facility] , [place] 04-05-2020 11:27-0500 Respiratory Rate 20 /min [facility] [place] [place] 04-05-2020 08:15-0500 Body Temperature 98.29 [degF] Naila [employer] [place] , [place] 11-18-2019 12:31-0400 BP Diastolic 109 mm[Hg] Basil Taulia [facility] , [place] 11-18-2019 12:31-0400 BP Systolic 183 mm[Hg] Basil RichardsonCanv[employer] [facility] [employer] [facility] , [place] 11-18-2019 12:31-0400 Pulse (Heart Rate) 85 /min Basil [employer] [facility], [place] 11-18-2019 12:31-0400 Pulse Oximetry 98 % Basil Mercado [facility] , [place] 11-18-2019 10:10-0400 Respiratory Rate 20 /min Basil [facility] [place] [facility] [place] 11-18-2019 08:41-0400 Body Temperature 98.29 [degF] Basil Mercado [facility] [place] , [place] 09-22-2019 09:18-0400 Height 167.6 cm [facility]o [facility] , [place] 09-22-2019 08:58-0400 Body Temperature 98.6 [degF] Feliciano Mercado [facility] [place] 09-22-2019 08:58-0400 BP Diastolic 115 mm[Hg] [facility] [place] , [place] 09-22-2019 08:58-0400 BP Systolic 160 mm[Hg] Feliciano Mejia [facility] [place] , [place] 09-22-2019 08:58-0400 Pulse (Heart Rate) 96 /min [facility] [place] [place] 09-22-2019 08:58-0400 Pulse Oximetry 95 % [facility] [place] [facility] [place] 09-22-2019 08:58-0400 Respiratory Rate 22 /min Feliciano Mercado [facility], [place] 09-22-2019 02:57-0400 BMI (Body Mass Index) 26.63 kg/m2 [facility], [place] 09-22-2019 02:57-0400 Body weight 74.84 kg [facility]o [facility] , [place] 09-21-2019 11:01-0400 BP Diastolic 111 mm[Hg] [facility] [place] [facility] [place] 09-21-2019 11:01-0400 BP Systolic 154 mm[Hg] [facility] [place] [facility] [place] 09-21-2019 11:01-0400 Pulse (Heart Rate) 91 /min [facility] [place] [place] 09-21-2019 11:01-0400 Pulse Oximetry 100 % Hitesh [facility] , [place] 09-21-2019 09:18-0400 BMI (Body Mass Index) 26.63 kg/m2 Hitesh [facility], [place] 09-21-2019 09:18-0400 Body Temperature 97.81 [degF] Hitesh [facility], [place] 09-21-2019 09:18-0400 Body weight 74.[address] [facility] , [place] 09-21-2019 09:18-0400 Height 167.[address] [facility] , [place] 09-21-2019 09:18-0400 Respiratory Rate 16 /min Hitesh [facility], [place] 06-25-2019 17:54-0400 BP Diastolic 107 mm[Hg] [facility] [place] 06-25-2019 17:54-0400 BP Systolic 159 mm[Hg] Bijan [facility] , [place] 06-25-2019 17:54-0400 Respiratory Rate 14 /min [facility] [place] 06-25-2019 16:35-0400 BMI (Body Mass Index) 23.96 kg/m2 [facility] [place] 06-25-2019 16:35-0400 Body Temperature 98.4 [degF] Bijan [facility], [place] 06-25-2019 16:35-0400 Body weight 75.75 kg Bijan [facility] , [place] 06-25-2019 16:35-0400 Height 177.8 cm Bijan [facility] , [place] 06-25-2019 16:35-0400 Pulse (Heart Rate) 61 /min [facility] [place] 06-25-2019 16:35-0400 Pulse Oximetry 98 % [facility] [place] 05-15-2019 20:10-0500 Body temperature 98.29 [degF] Kelvin Fernando MD [facility] Phone[facility] Work Phone: 05-15-2019 20:10-0500 Diastolic blood pressure 102 mm[Hg] Kelvin Fernando MD [facility] Work Phone: 05-15-2019 20:10-0500 Heart rate 94 /min Kelvin Fernando MD Work Phone: [facility] Work Phone: 05-15-2019 20:10-0500 Respiratory rate 20 /min Kelvin Fernando MD Work Phone: [facility] Work Phone: 05-15-2019 20:10-0500 SaO2% (BldA) [Mass fraction] 97 % Kelvin Fernando MD Work Phone: [facility] Work Phone: 05-15-2019 20:10-0500 Systolic blood pressure 127 mm[Hg] Kelvin Fernando MD Work Phone: [facility] Work Phone: Encounters Encounter Date Encounter Type Care Provider Facility Start: 12-28-2024 End: 12-29-2024 Refill Catalino Choudhary MD Work Phone: [facility] Addiction IOP Comment on above: PTSD (post-traumatic stress disorder); Generalized anxiety disorder; Alcohol withdrawal syndrome without complication (HCC) Start: 12-11-2024 End: 12-11-2024 Office outpatient visit 40 minutes Catalino Choudhary MD Work Phone: [facility] Comment on above: Severe alcohol use [...] Start: 12-11-2024 End: 12-11-2024 ambulatory CATALINO CHOUDHARY [facility] Start: 12-03-2024 End: 12-03-2024 Telephone encounter Nieves Valdez SCAGLIOLA MECHANIC - MAILROOM ASSISTANT Work Phone: [facility] [place] Comment on above: Care Coordination; H ospital Follow-up Start: 11-29-2024 End: 12-04-2024 Evaluation and management of inpatient Kelvin Fernando MD Work Phone: [facility] Epilepsy Monitoring Unit 3N Comment on above: Alcoholic intoxicati on without complication (CMS/HCC) (HCC) (Primary Dx); Fall, initial encounter; Closed head injury, initial encounter; Hypokalemia; Abnormal CT of the abdomen; Severe opioid use disorder on maintenance therapy (HCC) Start: 11-12-2024 End: 11-12-2024 Telephone encounter Catalino Choudhary MD Work Phone: [facility] Comment on above: Appointment Start: 10-17-2024 End: 10-17-2024 ambulatory [facility] Start: 10-17-2024 End: 10-17-2024 Subsequent hospital visit by physician Catalino Choudhary MD Work Phone: [facility] Addiction IOP Comment on above: Arrived Start: 09-19-2024 End: 09-19-2024 Subsequent hospital visit by physician Catalino Choudhary MD Work Phone: [facility] Addiction IOP Comment on above: Alcohol withdrawal s yndrome without complication (HCC); Severe opioid use disorder on maintenance therapy (HCC); Panic disorder Start: 09-19-2024 End: 09-19-2024 [facility] Start: 08-29-2024 End: 08-29-2024 [facility] Start: 08-29-2024 End: 08-29-2024 Office outpatient visit 40 minutes Catalino Choudhary MD Work Phone: [facility] Addiction IOP Comment on above: Alcohol withdrawal [...] by physician Catalino Choudhary MD Work Phone: [facility] Addiction IOP Comment on above: Arrived Start: 08-10-2024 End: 08-10-2024 Emergency department patient visit Ramesh Grimaldo MD Work Phone: [facility] ED Comment on above: Facial swelling (Ingrid kathy Dx) Start: 08-01-2024 End: 08-01-2024 Subsequent hospital visit by physician Catalino Choudhary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 Schaffer Leonardo DO Work Phone: Start: 04-19-2023 SARS-COV-2, FLU A/B, AND RSV COMBO Hitesh Quach [employer] Work Phone: Start: 04-19-2023 Drug tst prsmv instr mnt chem analyzers pr date Hitesh Quach [employer] Work Phone: Start: 04-19-2023 Urinalysis complete panel - Urine Hitesh Quach [employer] Work Phone: Start: 04-19-2023 Urnls dip stick/tabl et reagent auto microscopy Hitesh Quach [employer] Work Phone: Start: 04-19-2023 Radiologic exam ches [...] 1996 panel - S kacy or Plasma [facility] Portable Start: 04-17-2023 Assay of troponin quantitative [...] Start: 02-01-2023 OXYGEN THERAPY Silvino Quach [employer] MECH[employer]IC - [employer] ASSISTANT Work Phone: Start: 02-01-2023 Comprehensive metabo lic panel Betsy Montalvo MD Work Phone: Start: 01-31-2023 Blood gases any comb ination ph pco2 po2 co2 hco3 Kati Jacobo DO Work Phone: Start: 01-31-2023 OXYGEN THERAPY Silvino Quach [employer] MECH[employer]IC - [employer] ASSISTANT Work Phone: Start: 01-31-2023 Comprehensive metabo lic panel Maral Olivarez [employer]A MECHANIC - [employer] ASSISTANT Work Phone: Start: 01-31-2023 Drug screen quantita tive vancomycin Maral Quach [employer] MECH[employer]IC - [employer] ASSISTANT Work Phone: Start: 01-30-2023 OXYGEN THERAPY Silvino Quach [employer] MECH[employer]IC - [employer] ASSISTANT Work Phone: Start: 01-30-2023 Echo tthrc r-t 2d w/wom-mode compl spec&colr d Maral Olivarez [employer] MECHANIC - [employer]ILRO[employer] ASSISTANT Work Phone: Start: 01-30-2023 Comprehensive metabo lic panel Maral Olivarez [employer] MECHANIC - [employer] ASSISTANT Work Phone: Start: 01-30-2023 Radiologic exam ches t single view Maral Olivarez [employer] MECHANIC - [employer] ASSISTANT Work Phone: Start: 01-30-2023 Iadna respiratry pro be & rev trnscr 12-25 target Maral Olivarez [employer] MECHANIC - [employer] ASSISTANT Work Phone: Start: 01-30-2023 End: 01-30-2023 Smr prim src gram/giemsa stain bct fungi/cell Maral Olivarez APRN - MAILROOM ASSISTANT Work Phone: Start: 01-30-2023 Lactate dehydrogenase ldh Maral Olivarez [employer] MECH[employer]IC - [employer] ASSISTANT Work Phone: Start: 01-30-2023 EXTRA TUBES Kati Jacobo DO Work Phone: Start: 01-30-2023 LIGHT GREEN TOP Aliaksa guillermina Jacobo DO Work Phone: Start: 01-29-2023 UNCONFIRMED DRUG SCREEN Maral Olivarez [employer] MECHANIC - [employer] ASSISTANT Work Phone: Start: 01-29-2023 Antinuclear antibodies ester Maral Olivarez [employer]A MECHANIC - [employer]RO[employer] ASSISTANT Work Phone: Start: 01-29-2023 End: 01-29-2023 Iaad ia hiv-1 ag w/hiv-1 & hiv-2 antbdy single Maral Quach [employer]OLA MECHANIC - MAILRO[employer] ASSISTANT Work Phone: Start: 01-29-2023 Sedimentation rate r bc automated Maral Olivarez [employer]A MECHANIC - MAILROOM ASSISTANT Work Phone: Start: 01-29-2023 Blood gases any comb ination ph pco2 po2 co2 hco3 Kati Jacobo DO Work Phone: Start: 01-29-2023 Comprehensive metabo lic panel Maral Olivarez [employer] MECHANIC - MAILRO[employer] ASSISTANT Work Phone: Start: 01-29-2023 Drug test def 1-7 classes Maral Olivarez [employer]A MECHANIC - [employer] ASSISTANT Work Phone: Start: 01-29-2023 OXYGEN THERAPY Maindbertrand bev Olivarez [employer]A MECHANIC - MA[employer]RO[employer] ASSISTANT Work Phone: Start: 01-29-2023 Ct angiography chest [...] Start: 10-10-2022 Radex hand minimum 3 views Betsy Campos DO Work Phone: Start: 09-19-2022 Comprehensive [...] 09-18-2022 Radiologic exam ches t single view nEe Sarabia DO Work Phone: Start: 09-18-2022 Ecg [...] for Adults (1 - 1-dose 75+ series) [facility] Start: 2041 RSV Immunization aged 60 or older (1 - 1-dose 60+ series) RSV Immunization aged 60 or older (1 - 1-dose 60+ series) [facility] Start: 02-22-2032 DTaP/Tdap/Td Vaccines (3 - Td or Tdap) DTaP/Tdap/Td Vaccines (3 - Td or Tdap) [facility] Start: 02-22-2032 Urine microalbumin profile DTaP,Tdap,Td Vaccine (3 - Td or Tdap) [facility] Start: 10-15-2031 Shingles Vaccine (1 of 2) Shingles Vaccine (1 of 2) [facility] [place] Start: 10-15-2031 Zoster Vaccines (1 of 2) Zoster Vaccines (1 of 2) [facility] Start: 09-19-2028 DTaP/Tdap/Td vaccine (2 - Td or Tdap) DTaP/Tdap/Td vaccine (2 - Td or Tdap) [facility] Start: 09-19-2028 DTaP/Tdap/Td vaccine (2 - Td) DTaP/Tdap/Td vaccine (2 - Td) [facility] Work Phone: Start: 04-17-2028 Lipid panel [facility] Start: 09-24-2026 Lipid panel Lipid Panel [facility] Start: 01-01-2025 End: 01-01-2025 Patient encounter procedure 01/01/2025 12:00 PM EDT Office Visit [facility] [address] [facility] [address] [place] [phone] Catalino Choudhary MD [address] [facility] [address] [place] [address] [facility] Start: 12-25-2024 End: 12-25-2024 Patient encounter procedure 12/25/2024 8:30 AM EDT Office Visit [facility] Gastroenterology - [place] [address] [phone] Steven Mogran PA-C [address] [facility] [address] [place] [address] [facility] - [place] Start: 12-17-2024 COVID-19 Vaccine ( season) COVID-19 Vaccine ( season) [facility] Start: 12-17-2024 Influenza vaccination [facility] Start: 12-11-2024 End: 12-11-2024 Patient encounter procedure 12/11/2024 12:00 PM EDT Office Visit [facility] [address] [facility] [address] [place] [phone] Catalino Choudhary MD [address] [facility] [address] [place] [address] [facility] Start: 12-03-2024 End: 12-03-2024 ESOPHAGOGASTRODUODENOSCO PY, DIAGNOSTIC ESOPHAGOGASTRODUODENOSC OPY, DIAGNOSTIC Abnormal CT of the abdomen 12/03/2024 11:14 AM EDT [facility] Start: 10-17-2024 End: 10-17-2024 Patient encounter procedure 10/17/2024 1:00 PM EDT Appointment [facility] [address] [place] [address] Catalino Choudhary MD [address] [place] [address] [facility] Start: 09-24-2024 Diabetes screen Diabetes screen [facility] Start: 09-19-2024 End: 09-19-2024 Patient encounter procedure 09/19/2024 1:30 PM EDT Appointment [facility] [address] [place] [address] Catalino Choudhary MD [address] [place] [address] [facility] Start: 08-29-2024 End: 08-29-2024 Patient encounter procedure 08/29/2024 1:00 PM EDT Appointment [facility] [address] [place] [address] Catalino Choudhary MD [address] [place] [address] [facility] Start: 08-16-2024 Depression Monitoring Depression Monitoring [facility] Start: 08-01-2024 End: 08-01-2024 Patient encounter procedure [facility] Start: 07-04-2024 End: 07-04-2024 Patient encounter procedure [facility] Start: 06-20-2024 End: 06-20-2024 Patient encounter procedure [facility] Start: 06-06-2024 End: 06-06-2024 Patient encounter procedure [facility] Start: 05-30-2024 End: 05-30-2024 Patient encounter procedure 05/30/2024 12:30 PM EST Appointment [facility] [address] [place] [phone] Catalino Choudhary MD [address] [place], [place] [phone] [facility] Start: 05-17-2024 End: 05-15-2025 XR Hand - right 3 Views XR hand 3+ views right Imaging Routine Closed displaced fracture of shaft of fourth metacarpal bone of left hand, initial encounter Expected: 05/17/2024, Expires: 05/15/2025 [facility] Work Phone: Comment on above: Expected: 05/17/2024, Expires: Start: 05-17-2024 End: 05-15-2025 XR Shoulder - right 2 Views XR shoulder 2+ views right Imaging Routine Other closed displaced fracture of proximal end of right humerus, initial encounter Expected: 05/17/2024, Expires: 05/15/2025 [facility] Comment on above: Expected: 05/17/2024, Expires: Start: 05-17-2024 End: 05-17-2024 Patient encounter procedure 05/17/2024 9:00 AM EST Office Visit [facility] [place] [facility] [address] [facility] [address] [place] [phone] Estefani Garces MD [address] [facility] [address] [place] [address] [facility] [place] Start: 05-09-2024 End: 05-09-2024 Patient encounter procedure [facility] Start: 05-03-2024 End: 05-03-2024 Patient encounter procedure 05/03/2024 1:00 PM EST Appointment [facility] Ophthalmology - [place] [address] [place] [address] Antolin Luevano MD [address] [place] [address] Sapna Carranza MD [address] [place] [address] [facility]hthalmology - [place] Start: 04-23-2024 End: 04-23-2024 Patient encounter procedure [facility] [place] Start: 04-16-2024 Diabetes mellitus screening Diabetes Screening [facility] Start: 04-10-2024 End: 04-10-2024 ambulatory 04/10/2024 9:00 AM EST Evaluation [facility] [address] [place] [phone] Estefani Garces MD [address] [facility] [address] [place] [address] Abimael Cox, PT [facility] Start: 04-05-2024 End: 04-05-2024 Patient encounter procedure 04/05/2024 9:00 AM EST Office Visit [facility] [address] [facility] [address] [place] [address] Estefani Garces MD [address] [facility] [address] [place] [address] [facility] [place] Start: 03-30-2024 End: 03-30-2024 Patient encounter procedure 03/30/2024 11:00 AM EST Appointment [facility] [address] [place] [phone] Catalino Choudhary MD [address] [facility] [address] [place] [address] [facility] Start: 03-23-2024 End: 03-23-2024 Patient encounter procedure [facility] Start: 03-22-2024 End: 03-20-2025 XR Hand - right 3 Views XR hand 3+ views right Imaging Routine Other closed displaced fracture of proximal end of right humerus, initial encounter Closed displaced fracture of shaft of fourth metacarpal bone of left hand, initial encounter Expected: 03/22/2024, Expires: 03/20/2025 [facility] Comment on above: Expected: 03/22/2024, Expires: Start: 03-22-2024 End: 03-20-2025 XR Shoulder - right 2 Views XR shoulder 2+ views right Imaging Routine Other closed displaced fracture of proximal end of right humerus, initial encounter Expected: 03/22/2024, Expires: 03/20/2025 [facility] Work Phone: Comment on above: Expected: 03/22/2024, Expires: Start: 03-22-2024 End: 03-22-2024 Patient encounter procedure 03/22/2024 9:00 AM EST Office Visit [facility] [place] [address] [facility] [address] [place] [phone] Estefani Garces MD [address] [facility] [address] [place] [address] [facility] [place] Start: 03-13-2024 End: 03-13-2024 Patient encounter procedure 03/13/2024 11:30 AM EST Office Visit [facility] Trauma - [place] [address] [place] [address] Raiza Mcmillan APRN - MAILROOM ASSISTANT [address] [place] [address] [facility] Tra[facility] - [place] Start: 03-09-2024 End: 03-09-2024 Patient encounter procedure [facility] Start: 03-08-2024 End: 03-08-2024 Patient encounter procedure 03/08/2024 2:00 PM EST Office Visit [facility]ics [facility] - [place] [address] [facility] [address] [place] [phone] Estefani Garces MD [address] [facility] [address] [place], [place] [phone] [facility] [place] Start: 03-06-2024 End: 03-06-2024 Patient encounter procedure 03/06/2024 9:15 AM EST Office Visit [facility] [place] [address] [place] [phone] Leta Marcial MD [address] [place], [place] [phone] [facility] [place] Start: 03-02-2024 End: 03-02-2024 Patient encounter procedure [facility] Tra[facility] - [place] Start: 03-01-2024 Subsequent hospital visit by physician 03/01/2024 4:45 PM EST Hospital Encounter [facility] CT [address] [place] [address] Chela Tenorio, [employer]CH[employer]IC - [employer] ASSISTANT [address] [place], [place] [phone] [facility] CT Start: 02-27-2024 End: 02-12-2025 CT Head WO contrast CT head wo IV contrast Imaging Routine SAH (subarachnoid hemorrhage) (HCC) Expected: 02/27/2024, Expires: 02/12/2025 [facility] Work Phone: Comment on above: Expected: 02/27/2024, Expires: Start: 02-26-2024 End: 02-11-2025 CT Head WO contrast CT head wo IV contrast Imaging Routine SAH (subarachnoid hemorrhage) (HCC) Expected: 02/26/2024, Expires: 02/11/2025 [facility] Work Phone: Comment on above: Expected: 02/26/2024, Expires: Start: 02-24-2024 End: 02-24-2024 Patient encounter procedure 02/24/2024 1:00 PM EST Appointment [facility] [address] [place] [phone] Catalino Choudhary MD [address] [address] [facility] Start: 02-20-2024 End: 02-20-2024 Patient encounter procedure 02/20/2024 11:30 AM EST Appointment [facility] [address] [place] [address] Catalino Choudhary MD [address] [facility] [address] [place] [address] [facility] Start: 02-17-2024 End: 02-17-2024 Patient encounter procedure 02/17/2024 2:30 PM EDT Appointment [facility] [address] [place] [phone] Catalino Choudhary MD [address] [address] [facility] Start: 02-15-2024 End: 02-15-2024 Patient encounter procedure 02/15/2024 1:00 PM EDT Appointment [facility] [address] [place] [address] Catalino Choudhary MD [address] [address] Meek Carranza, [facility] Start: 02-14-2024 End: 02-14-2024 Patient encounter procedure 02/14/2024 11:00 AM EDT Appointment [facility] Ophthalmology - [place] [address] [facility] [address] [place] [phone] Sapna Carranza MD [address] [facility] [address] [place] [address] [facility] Op[facility] - [place] Start: 12-18-2023 COVID-19 Vaccine ( season) COVID-19 Vaccine ( season) [facility] Start: 12-18-2023 COVID-19 Vaccine ( season) COVID-19 Vaccine ( season) [facility] Start: 12-18-2023 Influenza vaccination Influenza Vaccine (#1) [facility] Start: 11-28-2023 End: 11-28-2023 Patient encounter procedure 11/28/2023 11:00 AM EDT Office Visit [facility] Orthopedics and Sports Medicine 1 [facility] [address] [place] [phone] Raul Troncoso PA-C [address] [facility] [address] [place], [place] [phone] [facility]ics [facility] Sports [facility] Start: 11-22-2023 End: 11-21-2024 XR Hand - left 3 Views XR hand 3+ views left Imaging Routine Left hand pain Expected: 11/22/2023, Expires: 11/21/2024 [facility] [facility] Work Phone: Comment on above: Expected: 11/22/2023, Expires: Start: 10-27-2023 End: 10-26-2024 XR Hand - left 3 Views [facility] Work Phone: Comment on above: Expected: 10/27/2023, Expires: Once for 1 Occurrenc es starting 10/27/2023 until 10/27/2023 Start: 12-17-2022 COVID-19 Vaccine ( season) COVID-19 Vaccine ( season) [facility] Start: 12-17-2022 Influenza vaccination [facility] Start: 09-24-2022 Diabetes mellitus screening Diabetes Screening [facility] Start: 09-24-2022 Lipid panel [facility] Start: 12-17-2021 Influenza vaccination [facility] Start: 10-02-2021 End: 10-02-2021 Evaluation and management of inpatient 10/02/2021 Office Visit Cardiology Luz Slaughter PA-C [address] [place] [address] [facility] Start: 07-05-2021 Creatinine measurement Creatinine monitoring [facility] Work Phone: Start: 07-05-2021 Potassium monitoring [...] Family Medicine Teddy Sanford MD [address], [place] [address] [phone] [facility] Start: 06-12-2020 End: 06-12-2020 Nurse Only 06/12/2020 Nurse Only Family Medicine [facility] Start: 12-18-2019 Influenza vaccination [place], [place] Start: 11-28-2019 HIV screen HIV screen [facility] Work Phone: Comment on above: Postponed from 1996 (Patient Refus ed) Start: 11-28-2019 HIV screening HIV screen [facility], [place] Comment on above: Postponed from 1996 [...] (2 of 3 - Adult catch-up series) [facility] Start: 10-13-2006 Varicella vaccination Varicella Vaccines (1 of 2 - 13+ 2-dose series) [facility] Start: 2000 Pneumococcal Vaccine: Pediatrics (0 to 5 Years) and At-Risk Patients (6 to 49 Years) (1 of 2 - PCV) Pneumococcal Vaccine: Pediatrics (0 to 5 Years) and At-Risk Patients (6 to 49 Years) (1 of 2 - PCV) [facility] Start: 10-15-1999 Anxiety Screening Anxiety Screening [facility] Start: 10-15-1999 Depression Screening Depression Screening [facility] Start: 10-15-1999 Hepatitis C screening [facility] Start: 10-15-1999 HIV screening HIV Screening [facility] Start: 1997 COVID-19 Vaccine (1) COVID-19 Vaccine (1) [facility] Work Phone: Start: 1996 HIV screening HIV screen [facility] Start: 1994 Varicella vaccination Varicella Vaccines (1 of 2 - 13+ 2-dose series) [facility] Start: 1993 COVID-19 Vaccine (1) COVID-19 Vaccine (1) [facility] Work Phone: Start: 1993 Depression Monitoring Depression Monitoring [facility] Start: 1993 Depresssion Monitoring Depresssion Monitoring [facility] Start: 10-15-1987 Pneumococcal 0-64 years Vaccine (1 - PCV) Pneumococcal 0-64 years Vaccine (1 - PCV) [facility] Start: 10-15-1987 Pneumococcal 0-64 years Vaccine (1 of 1 - PPSV23) Pneumococcal 0-64 years Vaccine (1 of 1 - PPSV23) [place] Start: 10-15-1987 Pneumococcal 0-64 years Vaccine (1 of 2 - PPSV23) Pneumococcal 0-64 years Vaccine (1 of 2 - PPSV23) [facility] Start: 10-15-1987 Pneumococcal Vaccine: Pediatrics (0 to 5 Years) and At-Risk Patients (6 to 64 Years) (1 - PCV) Pneumococcal Vaccine: Pediatrics (0 to 5 Years) and At-Risk Patients (6 to 64 Years) (1 - PCV) [facility] Start: 10-15-1987 Pneumococcal Vaccine: Pediatrics (0 to 5 Years) and At-Risk Patients (6 to 64 Years) (1 of 2 - PCV) Pneumococcal Vaccine: Pediatrics (0 to 5 Years) and At-Risk Patients (6 to 64 Years) (1 of 2 - PCV) [facility] Start: 1986 COVID-19 Vaccine (1) COVID-19 Vaccine (1) [facility] Start: 1982 MMR Vaccines (1 of 1 - Standard series) MMR Vaccines (1 of 1 - Standard series) [facility] Start: 1982 Varicella vaccination Varicella Vaccines (1 of 2 - 2-dose childhood series) [facility] Start: 04-15-1982 COVID-19 Vaccine (#1) COVID-19 Vaccine (#1) [facility] Start: 1981 Hepatitis C screening Hepatitis C screen [facility] Start: 1981 HIV screening HIV Screening [facility] Bacteria identified in Blood by Culture [facility] Work Phone: Bacteria identified in Blood by Culture [facility] Work Phone: Bacteria identified in Blood by Culture [facility] Work Phone: Bacteria identified in Blood by Culture Blood culture Site #1 - Suspected Infection Microbiology STAT 11/29/2024 6:53 PM EDT [facility] Work Phone: End: 09-18-2022 Bacteria identified in Lower respiratory specimen by Aerobe culture Respiratory culture and Stain Microbiology Routine Once (Lab) for 1 Occurrences starting 09/18/2022 until 09/18/2022 [employer] Work Phone: Comment on above: Once (Lab) for 1 Occurrences starting until 09/18/2022 End: 04-17-2023 Bacteria identified in Lower respiratory specimen by Aerobe culture Respiratory culture and Stain Microbiology Routine Once (Lab) for 1 Occurrences starting 04/17/2023 until 04/17/2023 [employer] Work Phone: Comment on above: Once (Lab) for 1 Occurrences starting until 04/17/2023 End: 09-27-2019 Basic Metabolic Panel w/ Reflex to MG Basic Metabolic Panel w/ Reflex to MG Lab Routine Tomorrow AM for 5 Occurrences starting 09/23/2019 until 09/27/2019 [facility], [place] Comment on above: Tomorrow AM for 5 Occurrences starting 0 09/23/2019 until 09/27/2019 End: 09-24-2021 Beta-Hydroxybutyrate Beta-Hydroxybutyrate Lab STAT One Time for 1 Occurrences starting 09/24/2021 until 09/24/2021 [employer] Work Phone: Comment on above: One Time for 1 Occurrences starting 12/2021 until 09/24/2021 Beta-Hydroxybutyrate Beta-Hydrox ybutyrate Lab STAT 09/24/2021 12:59 AM EDT [employer] Work Phone: End: 01-29-2023 Blood gases, arterial measurement Blood Gas, Arterial Lab STAT STAT (Lab) for 1 Occurrences starting 01/29/2023 until 01/29/2023 [employer] Work Phone: Comment on above: STAT (Lab) for 1 Occurrences starting until 01/29/2023 End: 01-31-2023 Blood gases, arterial measurement Blood Gas, Arterial Lab Routine Once (Lab) for 1 Occurrences starting 01/31/2023 until 01/31/2023 [employer] Work Phone: Comment on above: Once (Lab) for 1 Occurrences starting until 01/31/2023 End: 09-27-2019 CBC CBC Lab Routine Tomorrow AM for 5 Occurrences starting 09/23/2019 until 09/27/2019 [facility], [place] Comment on above: Tomorrow AM for 5 Occurrences starting 0 09/23/2019 until 09/27/2019 End: 07-09-2020 CBC CBC Lab Routine Daily for 5 Occurrences starting 07/05/2020 until 07/09/2020, 1 completed [employer] Work Phone: Comment on above: Daily for 5 Occurrences starting 021 until 07/09/2020, 1 completed End: 09-24-2021 CK WITH REFLEX CK-MB CK WITH REFLEX CK-MB Lab Routine Now Then Every 6hr for 1 Occurrences starting 09/24/2021 until 09/24/2021 [employer] Work Phone: Comment on above: Now Then Every 6hr for 1 Occurrences sta rting 09/24/2021 until 09/24/2021 CK WITH REFLEX CK-MB CK WITH REF JOJO CK-MB Lab Routine 09/24/2021 12:59 AM EDT [employer] Work Phone: End: 07-09-2020 Comprehensive metabolic 2000 panel Comprehensive Metabolic Panel Lab Routine Daily for 5 Occurrences starting 07/05/2020 until 07/09/2020, 1 completed [employer] Work Phone: Comment on above: Daily for 5 Occurrences starting 021 until 07/09/2020, 1 completed Culture, Blood 2 Culture, Blood 2 Microbiology STAT 09/24/2021 2:24 AM EDT [employer] Work Phone: End: 09-24-2021 Cyanocobalamin vitamin b-12 Vitamin B12 Lab Routine One Time for 1 Occurrences starting 09/24/2021 until 09/24/2021 [employer] Work Phone: Comment on above: One Time for 1 Occurrences starting 12/2021 until 09/24/2021 Cyanocobalamin vitam in b-12 Vitamin B12 Lab Routine 09/24/2021 12:59 AM EDT [employer] Work Phone: ECG 12 lead ECG 12 lead CV E CG STAT 09/16/2022 10:21 AM EDT [employer] Work Phone: ECG 12 lead ECG 12 lead CV E CG Routine 04/21/2023 12:01 PM EST [employer] Work Phone: ECHO Complete 2D W Doppler W Color ECHO Complete 2D W Doppler W Color Echocardiography Routine 09/24/2021 10:15 AM EDT [employer] Work Phone: EKG 12 Lead - Chest Pain [facility], [place] EKG 12 Lead - Chest Pain EKG 12 Lead - Chest Pain ECG STAT 04/13/2021 12:56 PM EST [employer] Work Phone: End: 09-24-2021 Ferritin [Mass/volume] in Serum or Plasma Ferritin Lab Routine One Time for 1 Occurrences starting 09/24/2021 until 09/24/2021 [employer] Work Phone: Comment on above: One Time for 1 Occurrences starting 12/2021 until 09/24/2021 Ferritin [Mass/volum e] in Serum or Plasma Ferritin Lab Routine 09/24/2021 12:59 AM EDT [employer] Work Phone: End: 12-03-2024 Helicobacter pylori Ag [Presence] in Stool by Immunoassay [employer] Work Phone: Comment on above: Once (Lab) for 1 Occurrences starting until 12/03/2024 End: 09-24-2021 Hemoglobin A1c/Hemoglobin.total in Blood Hemoglobin A1C Lab Routine One Time for 1 Occurrences starting 09/24/2021 until 09/24/2021 [employer] Work Phone: Comment on above: One Time for 1 Occurrences starting 12/2021 until 09/24/2021 Hemoglobin A1c/Hemoglobin.total in Blood Hemoglobin A1C Lab Routine 09/24/2021 12:59 AM EDT [employer] Work Phone: End: 01-29-2023 Hypersensitivity pnuemonitis profile [facility] Comment on above: Once (Lab) for 1 Occurrences starting until 01/29/2023 Initiate Oxygen Ther apy Protocol Initiate Oxygen Therapy Protocol Respiratory Care Routine Daily until discontinued [facility]22[facility] Daily until discontinued starting 2019 End: 01-29-2023 Lactic acid with reflex Lactic acid with reflex Lab Timed Once for 1 Occurrences starting 01/29/2023 until 01/29/2023 [employer] Work Phone: Comment on above: Once for 1 Occurrences starting 01/30/20 23 until 01/29/2023 End: 09-23-2019 Lipase Lipase Lab Routine Tomorrow AM for 1 Occurrences starting 09/23/2019 until 09/23/2019 [facility] [place] Comment on above: Tomorrow AM for 1 Occurrences starting 0 09/23/2019 until 09/23/2019 End: 09-24-2021 Lipid panel Lipid Panel Lab Routine One Time for 1 Occurrences starting 09/24/2021 until 09/24/2021 [employer] Work Phone: Comment on above: One Time for 1 Occurrences starting 12/2021 until 09/24/2021 Lipid panel Lipid Panel Lab Routine 09/24/2021 12:59 AM EDT [employer] Work Phone: End: 02-14-2024 MEDICATION ASSISTED TREATMENT PANEL MEDICATION ASSISTED TREATMENT PANEL Lab Routine Once (Lab) for 1 Occurrences starting 02/14/2024 until 02/14/2024 [employer] Work Phone: Comment on above: Once (Lab) for 1 Occurrences starting until 02/14/2024 Microscopic examinat ion of blood, culture Culture, Blood Microbiology STAT 09/24/2021 2:24 AM EDT [employer] Work Phone: Open treatment proxi mal humeral fracture OPEN REDUCTION INTERNAL FIXATION PROXMAL HUMERUS Closed fracture of right hand, initial encounter Other closed displaced fracture of proximal end of right humerus, initial encounter [facility] Oxygen therapy [Mini mum Data Set] Initiate Oxygen Therapy Protocol Respiratory Care Routine Daily until discontinued starting 07/03/2020 [employer] Work Phone: Comment on above: Daily until discontinued starting 2020 Oxygen therapy [Mini mum Data Set] Initiate Oxygen Therapy Protocol Respiratory Care Routine As Needed until discontinued starting 09/24/2021 [employer] Work Phone: Comment on above: As Needed until discontinued starting End: 09-24-2021 PHENCYCLIDINE (PCP), URINE PHENCYCLIDINE (PCP), URINE Lab Routine One Time for 1 Occurrences starting 09/24/2021 until 09/24/2021 [facility] Work Phone: Comment on above: One Time for 1 Occurrences starting 12/2021 until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 methadone at the clinic. Jeanette Lim RN 04/19/23 1252 Patient reports last methadone dose was this am at [facility]. Jeanette Lim RN 04/19/23 1254 Emergency Department Encounter [facility] ED Patient: El Smith : [...] as my MICAH Supervisory note as the psychiatric aide of record and shared attestation. I did [...] to contact the dictating provider for clarification Hitseh Corona DO Acute Care [facility] Hitesh Corona DO 04/19/23 0658 EMERGENCY DEPARTMENT [...] left eye 09/20/2018 Coronary artery disease involving [place] coronary artery of [place] heart without angina pectoris 10/02/2021 Degenerative disc disease, lumbar Depression Discogenic syndrome, 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 Drug abuse ([facility]) ([facility]) Gastroenteritis 11/23/2018 Last Assessment & Plan: Predominantly vomiting; ?food poisoning vs viral gastroenteritis IV hydration PRN antiemetics Hyperlipidemia Hypertension Iritis of left eye 09/20/2018 AL (myocardial infarction) ([facility]) Opioid dependence, uncomplicated ([facility]) 10/27/2021 Presence of stent in right coronary [...] In compliance with this authorization, please visit www.fda.gov/media/941964/download or www.fda.gov/media/715865/download to access the applicable information sheets. LACTIC [...] Culture. Procedure Abnormality Status --------- ------ Complete Urinalysis[[id number]] Abnormal Final result Please view results for [...] mg IV, Ativan was also ordered per [facility] protocol. Differential diagnosis includes but [...] addiction. I Kd Toledo DO am the psychiatric aide of record. PROCEDURES: Unless otherwise noted below, [...] was 2030 yesterday. documented in this encounter [facility] 04-20-2023 Emergency department Note Pts call light answered, pt asking for a fan which was provided. Pt also placed back on event host which had popped off. Josey Armendariz EMT 04/20/232000 [facility] 04-20-2023 Note Formatting of this n ote might be different from the original. Images from the original note were not included. Spoke with patient's methadone provider, [facility]. They confirmed that he did [...] Will see patient when respiratory precautions end. [facility] 04-19-2023 Consult note Associated Order (s): IP CONSULT TO CARDIOLOGY [facility] CARDIOLOGY CONSULTATION Patient Name: El Smith : 1980 Date of Service: 04/19/23 Reason for Consultation: chest pain History El Smith is a 42 y.o.year-old male chest pain He has a PMHx of alcohol use disorder, tobacco use, HTN, HLD, COPD, CAD s/p AL, depression and anxiety. He had an inferior [...] past. He sees Dr. Horton at the [facility]. Impression and Recommendations Chest pain. Atypical. My [...] left eye (09/20/2018), Coronary artery disease involving [place] coronary artery of [place] heart without angina pectoris (10/02/2021), Degenerative disc disease, lumbar, Depression, Discogenic syndrome, lumbar (11/03/2009), Drug abuse ([facility]/HCC) ([facility]), Gastroenteritis (11/23/2018), Hyperlipidemia, Hypertension, Iritis of left eye (09/20/2018), AL (myocardial infarction) ([facility]), Opioid dependence, uncomplicated ([facility]) (10/27/2021), Presence of stent in right coronary [...] and detox from alcohol are critically needed. [employer] [facility] Work Phone: 04-19-2023 Emergency department Note [facility] in to offer addiction support and resources. Patient and state they are linked with [facility] and no further resources needed. Patient is sleepy and not able to remain awake for conversation. At times patient is mumbling nonsensical with eyes shut. Expressed importance of treatment for alcohol use as well as to continue methadone at the clinic. Jeanette Lim RN 04/19/23 1252 [facility] 04-19-2023 Emergency department Note Patient reports last methadone dose was this am at [facility]. Jeanette Lim RN 04/19/23 1254 [facility] 04-19-2023 History and physical note Images [...] daily, take methadone daily and works with [employer]. Denies any fever. Will admit for further evaluation and management. Past Medical History: Past Medical History: Diagnosis Date Alcohol abuse Anxiety Back pain with sciatica Chronic back pain Chronic leg pain Chronic pain Corneal rust ring of left eye 09/20/2018 Coronary artery disease involving [place] coronary artery of [place] heart without angina pectoris 10/02/2021 Degenerative disc disease, lumbar Depression Discogenic syndrome, 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 Drug abuse (CMS/HCC) ([facility]) Gastroenteritis 11/23/2018 Last Assessment & Plan: Predominantly vomiting; ?food poisoning vs viral gastroenteritis IV hydration PRN antiemetics Hyperlipidemia Hypertension Iritis of left eye 09/20/2018 AL (myocardial infarction) ([facility]) Opioid dependence, uncomplicated ([facility]) 10/27/2021 Presence of stent in right coronary [...] pain in setting of hx of acute AL - Cardiology consulted given history Acute alcohol [...] - continue Brilenta, ASA, cardiology consult given AL history and CP radiating to back, - [...] Louise Smith Mobile Relation: Sister Preferred language: Barbadian Professional Builder needed? No Secondary Emergency Contact: ErastoChhaya Mobile Relation: Mother Shanice Helton MD Division of Hospitalist Medicine [facility] 04-19-2023 History and physical note Images [...] daily, take methadone daily and works with [employer]. Denies any fever. Will admit for further evaluation and management. Past Medical History: Past Medical History: Diagnosis Date Alcohol abuse Anxiety Back pain with sciatica Chronic back pain Chronic leg pain Chronic pain Corneal rust ring of left eye 09/20/2018 Coronary artery disease involving [place] coronary artery of [place] heart without angina pectoris 10/02/2021 Degenerative disc disease, lumbar Depression Discogenic syndrome, 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 Drug abuse ([facility]) ([facility]) Gastroenteritis 11/23/2018 Last Assessment & Plan: Predominantly vomiting; ?food poisoning vs viral gastroenteritis IV hydration PRN antiemetics Hyperlipidemia Hypertension Iritis of left eye 09/20/2018 AL (myocardial infarction) ([facility]) Opioid dependence, uncomplicated ([facility]) 10/27/2021 Presence of stent in right coronary [...] pain in setting of hx of acute AL - Cardiology consulted given history Acute alcohol [...] - continue Brilenta, ASA, cardiology consult given AL history and CP radiating to back, - [...] Louise Smith Mobile Relation: Sister Preferred language: Barbadian Professional Builder needed? No Secondary Emergency Contact: Chhaya Maurer Mobile Relation: Mother Shanice Helton MD Division of Hospitalist Medicine [facility] documented in this encounter [facility] 04-19-2023 Note NOTE: This result is for medical treatment only. Analysis performed using non-forensic procedures. [facility] 04-19-2023 Emergency department Triage note Pt presents to ED c/o cough and shortness of breath. Pt states he was just admitted for pneumonia. Pt states that he has anxiety and drinks serrano to deal with that. Pt has gone through withdraw before and feels like he is going through that now. Pt last drink was 2030 yesterday. [facility] 04-19-2023 Physician Emergency department Note Emergency Department Encounter [facility] ED Patient: El Smith : [...] as my MICAH Supervisory note as the psychiatric aide of record and shared attestation. I did [...] for clarification Hitesh Corona DO Acute Care [facility] Hitesh Corona DO 04/19/23 0658 [employer] Phone: 04-19-2023 Physician Emergency department Note EMERGENCY [...] left eye 09/20/2018 Coronary artery disease involving [place] coronary artery of [place] heart without angina pectoris 10/02/2021 Degenerative disc disease, lumbar Depression Discogenic syndrome, 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 Drug abuse ([facility]) ([facility]) Gastroenteritis 11/23/2018 Last Assessment & Plan: Predominantly vomiting; ?food poisoning vs viral gastroenteritis IV hydration PRN antiemetics Hyperlipidemia Hypertension Iritis of left eye 09/20/2018 AL (myocardial infarction) ([facility]) Opioid dependence, uncomplicated ([facility]) 10/27/2021 Presence of stent in right coronary artery 10/02/2021 Sciatica Spinal stenosis, lumbar Tobacco abuse SURGICAL HISTORY Past Surgical History: Procedure Laterality Date ARM SURGERY (HISTORICAL) metal rods in daam upper extremities BACK SURGERY COLONOSCOPY CORONARY ANGIOPLASTY [...] In compliance with this authorization, please visit www.fda.gov/media/712227/download or www.fda.gov/media/107060/download to access the applicable information sheets. LACTIC [...] Culture. Procedure Abnormality Status --------- ------ Complete Urinalysis[[id number]] Abnormal Final result Please view results for [...] mg IV, Ativan was also ordered per [facility] protocol. Differential diagnosis includes but [...] addiction. I Kd Toledo DO am the psychiatric aide of record. PROCEDURES: Unless otherwise noted below, [...] Medicine Provider Kd Toledo DO 04/19/23 0929 [facility] 04-17-2023 Hospital course Narrative Images from [...] Chronic medical conditions include CAD with prior AL/PCI/CABG, polysubstance abuse (AUD w/ hx withdrawal, opioids, [...] DISPOSITION: AMA Follow up with Kay Kerr [address] [place] [id number] DISCHARGE TIME: 34 minutes SIGNED: Andrea Hanks [...] and appropriately conversant. documented in this encounter [facility] 04-17-2023 Nurse Note Pt call light on, [...] nurses station. Pt ambulated self to exit. [facility] 04-17-2023 Nurse Note Pt call light on, [...] 1300 on 04/16/2023 documented in this encounter [facility] 04-17-2023 Consult note Associated Order (s): IP [...] he is on methadone 125 mg through [facility]. I have not been able to confirm [...] has a history of psychiatric admission at [facility] 09/2021. Denies current SI/HI, auditory or visual [...] [] Chem Dep IOP: Denies. [x] Detoxifications: [facility]. [] 12 Step Meetings: Denies. [x] Medication Assisted Treatment: Methadone 125 mg. Psychiatric History: Current Psychiatrist: None Current Medications: see below Previous Medication Trials: unknown Diagnoses: Anxiety, depression Psychiatric Hospitalizations: [facility] 09/2021 Previous Suicide Attempts: Denies Adverse Childhood/ [...] left eye 09/20/2018 Coronary artery disease involving [place] coronary artery of [place] heart without angina pectoris 10/02/2021 Degenerative disc disease, lumbar Depression Discogenic syndrome, 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 Drug abuse ([facility]) ([facility]) Gastroenteritis 11/23/2018 Last Assessment & Plan: Predominantly vomiting; ?food poisoning vs viral gastroenteritis IV hydration PRN antiemetics Hyperlipidemia Hypertension Iritis of left eye 09/20/2018 AL (myocardial infarction) ([facility]) Opioid dependence, uncomplicated ([facility]) 10/27/2021 Presence of stent in right coronary [...] 417 ms QTC Interval 526 ms P [place] 44 degrees QRS [place] 30 degrees T Wave [place] 137 degrees PA Interval 160 ms SARS-CoV-2, Flu A/B, and [...] withdrawal symptoms. - labs/tests/tasks ordered: None - ent consultant recommendations: Holding Methadone secondary to prolonged QTc interval on the EKG Recovery plan: Will discuss recovery plan as patient stabilizes Remaining medical management per primary team. Thank you for this consultation. Will follow. DARA Burger NP Addiction Medicine 04/17/2023 at 1:19 PM Note: Narrative portions of note written using [employer] dictation software. Efforts are made to dictate clearly and proofread but errors in dictation still may occur. Please reach out to author with any clarifying questions. [employer] Phone: 04-17-2023 Consult note Associated Order (s): [...] he is on methadone 125 mg through [facility]. I have not been able to confirm [...] has a history of psychiatric admission at [facility] 09/2021. Denies current SI/HI, auditory or visual [...] [] Chem Dep IOP: Denies. [x] Detoxifications: [facility]. [] 12 Step Meetings: Denies. [x] Medication Assisted Treatment: Methadone 125 mg. Psychiatric History: Current Psychiatrist: None Current Medications: see below Previous Medication Trials: unknown Diagnoses: Anxiety, depression Psychiatric Hospitalizations: [facility] 09/2021 Previous Suicide Attempts: Denies Adverse Childhood/ [...] left eye 09/20/2018 Coronary artery disease involving [place] coronary artery of [place] heart without angina pectoris 10/02/2021 Degenerative disc disease, lumbar Depression Discogenic syndrome, 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 Drug abuse ([facility]) ([facility]) Gastroenteritis 11/23/2018 Last Assessment & Plan: Predominantly vomiting; ?food poisoning vs viral gastroenteritis IV hydration PRN antiemetics Hyperlipidemia Hypertension Iritis of left eye 09/20/2018 AL (myocardial infarction) ([facility]) Opioid dependence, uncomplicated ([facility]) 10/27/2021 Presence of stent in right coronary [...] 417 ms QTC Interval 526 ms P [place] 44 degrees QRS [place] 30 degrees T Wave [place] 137 degrees PA Interval 160 ms SARS-CoV-2, Flu A/B, and [...] withdrawal symptoms. - labs/tests/tasks ordered: None - ent consultant recommendations: Holding Methadone secondary to prolonged QTc interval on the EKG Recovery plan: Will discuss recovery plan as patient stabilizes Remaining medical management per primary team. Thank you for this consultation. Will follow. DARA Burger NP Addiction Medicine 04/17/2023 at 1:19 PM Note: Narrative portions of note written using [employer] dictation software. Efforts are made to dictate clearly and proofread but errors in dictation still may occur. Please reach out to author with any clarifying questions. documented in this encounter [facility] 04-17-2023 History of Present illness Narrative Images from the original note were not included. Hospitalist Summary Note (admitted after midnight) 04/17/2023 8:48 AM This is a non-billable note. [phone]: Please page [facility] night Hospitalist for any issues. Subjective: Admit Date: 04/16/2023 PCP: KAY KERR Room#: W5-530/W5-530 A Interval note for patient admission after midnight. Patient admitted 04/16/2023 for anxiety, ?PNA. Chronic medical conditions include CAD with prior AL/PCI/CABG, polysubstance abuse (AUD w/ hx withdrawal, opioids, [...] MD Division of Hospitalist Medicine Inpatient Medical Services/[facility] documented in this encounter [facility] 04-17-2023 Nurse Note Patient arrived to 5W. Vitals taken, heart monitor on, troponin drawn. Patient CIWA 8. Dr. Huerta notified of arrival. Patient states he takes 125 mg of methadone in the mornings. Patient reports drinking 15 shots of whiskey a day and his last drink was 1300 on 04/16/2023 [facility] 04-17-2023 Plan of care note Problem: Pain [...] to identify my specific goals Outcome: Progressing [facility] 04-17-2023 Miscellaneous Notes Problem: Pain Goal: My [...] goals Outcome: Progressing documented in this encounter [facility] 04-17-2023 History and physical note Images from the original note were not included. Attending History and Physical Admit Date: 04/16/2023 PCP: KAY KERR CHIEF COMPLAINT: Anxiety chest pain History Obtained From: Patient HISTORY OF PRESENT ILLNESS: El is a 42 y.o. male with past medical history below who presents with chief complaint listed above. Today he presents to the [facility] emergency department with chest tightness and anxiety [...] left eye 09/20/2018 Coronary artery disease involving [place] coronary artery of [place] heart without angina pectoris 10/02/2021 Degenerative disc disease, lumbar Depression Discogenic syndrome, 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 Drug abuse ([facility]) ([facility]) Gastroenteritis 11/23/2018 Last Assessment & Plan: Predominantly vomiting; ?food poisoning vs viral gastroenteritis IV hydration PRN antiemetics Hyperlipidemia Hypertension Iritis of left eye 09/20/2018 AL (myocardial infarction) ([facility]) Opioid dependence, uncomplicated ([facility]) 10/27/2021 Presence of stent in right coronary [...] able to answer questions and follow commands director cardiac II-XII normal Normal 5/5 strength and normal sensation in all four extremities DTRs are normal 2/4 and equal bilaterally Normal coordination in upper and lower extremities Gait not tested Normal speech No facial droop No pronator drift Negative test of skew bilaterally Psych: Anxious and nervous, rocking [id number] in bed, continuously rubbing his face with [...] Other Indication; chest pain Inpatient consult to Hospitalist--[facility] Pulse oximetry, continuous ECG 12 [...] Contact: LuisLouise Mobile Relation: Sister Preferred language: Barbadian Professional Builder needed? No Mother: Chhaya Maurer Mobile Please forward a copy of this H&P to the patient's PCP. Thank you. Electronically signed by Anastacio Huerta MD at 1:56 AM A [employer] Work Phone: 04-17-2023 History and physical note Images from the original note were not included. Attending History and Physical Admit Date: 04/16/2023 PCP: KAY KERR CHIEF COMPLAINT: Anxiety chest pain History Obtained From: Patient HISTORY OF PRESENT ILLNESS: El is a 42 y.o. male with past medical history below who presents with chief complaint listed above. Today he presents to the [facility] emergency department with chest tightness and anxiety [...] left eye 09/20/2018 Coronary artery disease involving [place] coronary artery of [place] heart without angina pectoris 10/02/2021 Degenerative disc disease, lumbar Depression Discogenic syndrome, 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 Drug abuse ([facility]) ([facility]) Gastroenteritis 11/23/2018 Last Assessment & Plan: Predominantly vomiting; ?food poisoning vs viral gastroenteritis IV hydration PRN antiemetics Hyperlipidemia Hypertension Iritis of left eye 09/20/2018 AL (myocardial infarction) ([facility]) Opioid dependence, uncomplicated ([facility]) 10/27/2021 Presence of stent in right coronary [...] able to answer questions and follow commands director cardiac II-XII normal Normal 5/5 strength and normal sensation in all four extremities DTRs are normal 2/4 and equal bilaterally Normal coordination in upper and lower extremities Gait not tested Normal speech No facial droop No pronator drift Negative test of skew bilaterally Psych: Anxious and nervous, rocking [id number] in bed, continuously rubbing his face with [...] Other Indication; chest pain Inpatient consult to Hospitalist--[facility] Pulse oximetry, continuous ECG 12 [...] Louise Smith Mobile Relation: Sister Preferred language: Barbadian Professional Builder needed? No Mother: Chhaya Maurer Mobile Please forward a copy of this H&P to the patient's PCP. Thank you. Electronically signed by Anastacio Huerta MD at 1:56 AM documented in this encounter [facility] 04-17-2023 Emergency department Note Report given to 5W per request of 4W staff. Caitlin Wise RN 04/17/23 005 [facility] 04-17-2023 Emergency department Note Report given to 5W per request of 4W staff. Caitlin Wise RN 04/17/23 0058 Mom stated she is driving pt to [facility] to continue treatment. Caitlin Wise RN 04/17/23 [...] left eye 09/20/2018 Coronary artery disease involving [place] coronary artery of [place] heart without angina pectoris 10/02/2021 Degenerative disc disease, lumbar Depression Discogenic syndrome, 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 Drug abuse ([facility]) ([facility]) Gastroenteritis 11/23/2018 Last Assessment & Plan: Predominantly vomiting; ?food poisoning vs viral gastroenteritis IV hydration PRN antiemetics Hyperlipidemia Hypertension Iritis of left eye 09/20/2018 AL (myocardial infarction) ([facility]) Opioid dependence, uncomplicated ([facility]) 10/27/2021 Presence of stent in right coronary [...] able to answer questions and follow commands director cardiac II-XII normal Normal 5/5 strength and normal sensation in all four extremities DTRs are normal 2/4 and equal bilaterally Normal coordination in upper and lower extremities Gait not tested Normal speech No facial droop No pronator drift Negative test of skew bilaterally Psych: Anxious and nervous, rocking nmvc-yf-szku in bed, continuously rubbing his face with [...] that he has a history of previous AL with multivessel CABG and is not taking [...] external records from past medical records in [facility] to obtain collateral history. The patient will [...] My interpretation can be found in the [employer] EKG system. Normal sinus rhythm, no STEMI. 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 Unchanged from previous EKG. D-dimer negative. PE [...] in the emergency department IMS hospitalist at [facility] paged for admission. Patient will be admitted to Dr. Huerta on wage and salary specialist for further care. Disposition: Admitted to [facility] CRITICAL CARE TIME FINAL IMPRESSION 1. Chest pain, unspecified type 2. History of AL (myocardial infarction) 3. Noncompliance with medications 4. Anxiety 5. Cigarette smoker 6. Alcoholism ([facility]) ([facility]) 7. Pneumonia of left lower lobe due [...] Emergency Medicine Provider Marquise Nair MD 04/16/23 2858 El Smith, age 42, ambulated to ED3 [...] Physician at bedside. documented in this encounter [facility] 04-17-2023 Emergency department Note Mom stated she is driving pt to [facility] to continue treatment. Caitlin Wise RN 04/17/23 0046 [facility] 04-17-2023 Emergency department Note Report given to DESIREE Saravia. Caitlin Wise RN 04/17/2342 [facility] 04-17-2023 Emergency department Note Medication reconciliation completed. Pt could not tell me any medications he takes other than the Methadone. When this RN asked asked about the other medications on his 'home medication' list, pt stated he doesn't take anything other than his methadone. Mom agreed. Caitlin Wise RN 04/17/23 0015 [facility] 04-16-2023 Note NOTE: This result is for medical treatment only. Analysis performed using non-forensic procedures. [facility] 04-16-2023 Emergency department Note Lab called to advise Alcohol 0.303. and primary notified Rhoda Kim RN 04/16/23 601 [facility] 04-16-2023 Emergency department Triage note El [...] Vitals obtained. ECG completed. Physician at bedside. [facility] 04-16-2023 Physician Emergency department Note EMERGENCY DEPARTMENT ENCOUNTER Pt Name: El Simth Birthdate 1980 Date of evaluation: 04/16/2023 ED Provider: Marquise Nari MD CHIEF COMPLAINT Chief Complaint Patient presents [...] left eye 09/20/2018 Coronary artery disease involving [place] coronary artery of [place] heart without angina pectoris 10/02/2021 Degenerative disc disease, lumbar Depression Discogenic syndrome, 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 Drug abuse (CMS/HCC) (HCC) Gastroenteritis 11/23/2018 Last Assessment & Plan: Predominantly vomiting; ?food poisoning vs viral gastroenteritis IV hydration PRN antiemetics Hyperlipidemia Hypertension Iritis of left eye 09/20/2018 AL (myocardial infarction) ([facility]) Opioid dependence, uncomplicated ([facility]) 10/27/2021 Presence of stent in right coronary [...] able to answer questions and follow commands director cardiac II-XII normal Normal 5/5 strength and normal sensation in all four extremities DTRs are normal 2/4 and equal bilaterally Normal coordination in upper and lower extremities Gait not tested Normal speech No facial droop No pronator drift Negative test of skew bilaterally Psych: Anxious and nervous, rocking nntx-yy-ynhl in bed, continuously rubbing his face with [...] that he has a history of previous AL with multivessel CABG and is not taking [...] external records from past medical records in [facility] to obtain collateral history. The patient will [...] My interpretation can be found in the [employer] EKG system. Normal sinus rhythm, no STEMI. 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 Unchanged from previous EKG. D-dimer negative. PE [...] phenobarbital added here in the emergency department [facility] hospitalist at [facility] paged for admission. Patient will be admitted to Dr. Huerta on wage and salary specialist for further care. Disposition: Admitted to [facility] CRITICAL CARE TIME FINAL IMPRESSION 1. Chest pain, unspecified type 2. History of AL (myocardial infarction) 3. Noncompliance with medications 4. [...] Emergency Medicine Provider Marquise Nair MD 04/16/23 4181 [facility] 02-03-2023 Miscellaneous Notes S/W, follow up Patient left AMA prior to S/W visit. Images from the original note were not included. Care Management Progress Note Weaned off oxygen and is 97% on RA. On po prednisone and po augmentin. Methadone being dosed daily. Po ativan x 2 today. Plan to return to [facility] to continue methadone MAT after discharge. Discharge Milestones and Delays Expected Date/Time: 02/04/[address] discharge order Complete med reconciliation Case mgmt discharge readiness Clinical Stability Diagnsotic Workup Expected Discharge History Expected Date/Time Set By Reviewed At 02/04/2023 [facility] Clark 02/03/2023 11:01 AM 02/04/2023 [facility] Clark 02/02/2023 10:32 AM 02/05/2023 eBtsy Montalvo MD 02/01/2023 11:40 AM 02/04/2023 [facility] Clark 02/01/2023 10:06 AM 02/03/2023 [facility] Clark 01/31/2023 10:26 AM 02/03/2023 Maral Olivarez APRN - MAILROOM ASSISTANT 01/29/2023 9:50 PM 02/03/2023 Maral Olivarez APRN - MAILROOM ASSISTANT 01/29/2023 7:39 PM Length of Stay (Days): 5 GMLOS: No GMLOS Documented . Images from the original note were not included. Care Management Progress Note Patient remains on ICU s/p ARF with hypoxia related to vape pen damage. Clinical updates: Mentation is improved today, having normal conversations with staff. Add Med did Cons yesterday, plan for [facility] or [facility]. Discharge plan: Home with outpatient [...] 10:26 AM 02/03/2023 Maral Olivarez APRN - MAILROOM ASSISTANT 01/29/2023 9:50 PM 02/03/2023 Maral Olivarez APRN - MAILROOM ASSISTANT 01/29/2023 7:39 PM Length of Stay (Days): 4 GMLOS: No GMLOS Documented ICU Transfer Checklist Transfer Med Reconciliation (resume home meds if able, convert to PO if able) Complete Antibiotics (name, indication, duration, convert to PO if able) Yes, addressed in today's progress note Steroid (indication, duration, convert to PO if able) Yes, addressed in today's progress note Anticipated Prentiss Medications (ICU initiated) or Dose Changes and Indication No Permanently Discontinued Home Medications and Reason for medication contraindication No Conrad Catheter (please remove if able. Note: place DC order) No Central Line (please remove if able. Note: place DC order) No Transfer Discussed with: Dr. Trent - [facility] If additional questions for ICU team within 24 hours of ICU transfer, page [phone] for clarifications. Pt transfered out of ICU Care Managment Initial Assessment Date: 01/31/2023 Patient Name: El Smith : 1980 Patient Information Source of Information: Patient African History Professor Name/Contact Information: Charis Novak via telephone Cognition/Language: Unable to Assess Permission given to speak with patient district sales representative/caregiver as indicated: Yes Confirmation of Payer with patient/family: Yes Payer Name: Mary [facility] Robert Lee: No Confirmation of Primary Care Physician: Confirmed [...] Coverage: Yes Pharmacy Used: [facility] in [place] Medication Management: Independent Transportation/Shopping: Independent Transportation Mode: [...] prescription coverage, uses [facility] in [place]. Chhaya denies any financial difficulties. DCP TBD [...] compliance with therapy. documented in this encounter [facility] 02-03-2023 Note Formatting of this n ote might be different from the original. S/W, follow up Patient left AMA prior to S/W visit. [facility] 02-03-2023 History of Present illness Narrative Pt [...] significant fluid accumulation (le has pulmonary edema) Die Engraving Supervisor Strength: Measurable reduction in stock counter strength (per rn) Nutrition Assessment: PER MD--year-old male, with history of alcohol, tobacco, medical marijuana use with a vape pen, history of COPD, chronic pain on methadone history of coronary artery disease status post PCI in 2021, history of hypertension hyperlipidemia admitted via [facility] emergency room where he presented with nonproductive [...] to 2268 Weight Used for Protein Requirements: Ebro Weight in Kg Used for Protein Requirements: [...] wt variances) % Weight Change (Calculated): 5 [place] Body Weight (lbs) (Calculated): 166 lbs [place] Body Weight (Kg) (Calculated): 75 kg % [place] Body Weight (Calculated): 126.6 % BMI (kg/m2) [...] Oral Nutrition Supplement Kathy Tim RD Contact: *[phone] or secure chat Images from the original note were not included. [id number]] Respiratory Therapy Home O2 Progress Note O2 [...] were not included. Hospitalist Progress Note 02/03/2023 [phone]: Please secure chat me for patient care issues. [phone]: Please secure chat [facility] Hospitalist for any issues. Subjective: Admit [...] constipation, fevers, or chills. 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) Gastroenteritis 11/23/2018 Last Assessment & Plan: Predominantly vomiting; ?food poisoning vs viral gastroenteritis IV hydration PRN antiemetics Hyperlipidemia Hypertension Iritis of left eye 09/20/2018 AL (myocardial infarction) ([facility]) Opioid dependence, uncomplicated (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) ([facility]) Gastroenteritis 11/23/2018 Last Assessment & Plan: Predominantly vomiting; ?food poisoning vs viral gastroenteritis IV hydration PRN antiemetics Hyperlipidemia Hypertension Iritis of left eye 09/20/2018 AL (myocardial infarction) ([facility]) Opioid dependence, uncomplicated ([facility]) 10/27/2021 Presence of stent in right coronary [...] Louise Smith Mobile Relation: Sister Preferred language: Barbadian Professional Builder needed? No Mother: Chhaya Maurer Mobile DIANA VILLAR MD, MD Division of Hospitalist Medicine Taste Filter [facility] PAGER: [employer] chat Methadone Dose verified with Kelly from [facility] - Last outpatient dose: 125mg oral methadone given on 01/29 with one take-home dose for 01/30. [facility] Respiratory Care Department Progress Note As part [...] from the original note were not included. [facility], Pulmonary Medicine [address] [place] [id number] Patient - El Smith, Age - 42 y.o. - 1980 Room Number - 232-10/232-10 A Consulting - Conner Trent MD [id number] Date of Admission - 01/29/2023 6:32 PM [...] 2021, history of hypertension hyperlipidemia admitted via [facility] emergency room where he presented with nonproductive [...] myocardial infarction (HCC) Coronary artery disease involving [place] coronary artery of [place] heart without angina pectoris Mood disorder (HCC) Coagulase negative Staphylococcus bacteremia Presence of stent in right coronary artery PTSD (post-traumatic stress disorder) Primary hypertension Leukocytosis Withdrawn from alcohol detoxification program COPD exacerbation (HCC) Alcohol withdrawal delirium, acute, hyperactive ([facility]) Community acquired bacterial pneumonia Acute hypoxic respiratory failure ([facility]) Lumbar dysfunction Closed fracture of metatarsal bone [...] original note were not included. 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) Gastroenteritis 11/23/2018 Last Assessment & Plan: Predominantly vomiting; ?food poisoning vs viral gastroenteritis IV hydration PRN antiemetics Hyperlipidemia Hypertension Iritis of left eye 09/20/2018 AL (myocardial infarction) ([facility]) Opioid dependence, uncomplicated ([facility]) 10/27/2021 Presence of stent in right coronary artery 10/02/2021 Sciatica Spinal stenosis, lumbar Tobacco abuse Past Surgical History: Past Surgical History: Procedure Laterality Date ARM SURGERY (HISTORICAL) metal rods in adam upper extremities BACK SURGERY COLONOSCOPY CORONARY ANGIOPLASTY WITH STENT PLACEMENT 09/23/2021 DORIS to proximal RCA FRACTURE SURGERY Admission Diagnosis: Patient Active Problem List Diagnosis Date Noted Acute myocardial infarction ([facility]) 09/26/2021 Severe opioid use disorder on maintenance therapy ([facility]) 02/01/2023 Severe alcohol use disorder ([facility]) 02/01/2023 Acute hypoxic respiratory failure ([facility]) 01/29/2023 Closed fracture of metatarsal bone 09/24/2022 Community acquired bacterial pneumonia 09/18/2022 Alcohol withdrawal delirium, acute, hyperactive ([facility]) 09/17/2022 COPD exacerbation ([facility]) 09/16/2022 Withdrawn from alcohol detoxification program 08/26/2022 Coronary artery disease involving [place] coronary artery of [place] heart without angina pectoris 10/02/2021 Presence of stent in right coronary artery 10/02/2021 Primary hypertension 10/02/2021 Mood disorder ([facility]) 09/27/2021 Coagulase negative Staphylococcus bacteremia 09/26/2021 PTSD [...] of major depressive disorder without prior episode ([facility]) 11/23/2017 Medical Precautions: No active isolations Proper PPE donned/doffed in accordance with facility standards. Fall Risk: Gtoti Fall Risk Score: 60 (High Risk) Precautions/Restrictions: [...] Responsibilities: Independent Receives Help From: Family Active Collator Hand: Yes Prior Level of Function ADL Assistance: [...] of Care supervision is transferred to a [facility] Therapy Services Physical Therapist. Goals and/or [...] 404 ms QTC Interval 486 ms P [place] 34 degrees QRS [place] 15 degrees T Wave [place] 20 degrees PA Interval 160 ms CBC auto differential Collection [...] also remains Green-Slipped He will return to [facility] to continue methadone MAT after discharge. Lacks insight and judgement into the nature of his addiction issues based on past admissions. Alcohol withdrawal Opioid withdrawal Nicotine withdrawal Precedex gtt managed by crit care - now discontinued Phenobarbital was lowered to 100 mg IV q 8 hours PRN ONLY for agitation ~400 mg in the last 24 hours Ativan PRN per [facility] protocol for alcohol withdrawal 125 [...] original note were not included. 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) ([facility]) Gastroenteritis 11/23/2018 Last Assessment & Plan: Predominantly vomiting; ?food poisoning vs viral gastroenteritis IV hydration PRN antiemetics Hyperlipidemia Hypertension Iritis of left eye 09/20/2018 AL (myocardial infarction) ([facility]) Opioid dependence, uncomplicated ([facility]) 10/27/2021 Presence of stent in right coronary artery 10/02/2021 Sciatica Spinal stenosis, lumbar Tobacco abuse Past Surgical History: Past Surgical History: Procedure Laterality Date ARM SURGERY (HISTORICAL) metal rods in adam upper extremities BACK SURGERY COLONOSCOPY CORONARY ANGIOPLASTY WITH STENT PLACEMENT 09/23/2021 DORIS to proximal RCA FRACTURE SURGERY Admission Diagnosis: Patient Active Problem List Diagnosis Date Noted Acute myocardial infarction ([facility]) 09/26/2021 Severe opioid use disorder on maintenance therapy ([facility]) 02/01/2023 Severe alcohol use disorder ([facility]) 02/01/2023 Acute hypoxic respiratory failure ([facility]) 01/29/2023 Closed fracture of metatarsal bone 09/24/2022 Community acquired bacterial pneumonia 09/18/2022 Alcohol withdrawal delirium, acute, hyperactive ([facility]) 09/17/2022 COPD exacerbation ([facility]) 09/16/2022 Withdrawn from alcohol detoxification program 08/26/2022 Coronary artery disease involving [place] coronary artery of [place] heart without angina pectoris 10/02/2021 Presence of stent in right coronary artery 10/02/2021 Primary hypertension 10/02/2021 Mood disorder ([facility]) 09/27/2021 Coagulase negative Staphylococcus bacteremia 09/26/2021 PTSD [...] Responsibilities: Independent Receives Help From: Family Active Collator Hand: N/A Prior Level of Function ADL Assistance: [...] Daily Activity Raw Score: 19 ADL Inpatient [facility] G-Code Modifier: CK Plan Pt [...] of Care supervision is transferred to a [facility] Therapy Services Occupational Therapist. Goals and/or treatment plan was established in collaboration with patient/family/other representatives. ICU Progress Note Name: El Smith : 1980(42 y.o.) Date: 02/02/23 Team: MICU Attending: Catia Subjective: Hospital Summary: El Smith is a 42M hx alcohol, tobacco, and medical marijuana use (vape pen), COPD, HTN/HLD, chronic pain (alleges gabapentin, methadone use -- [facility]), CAD s/p PCI (2021) who presented to [facility] ED on 01/29 for persistent non-productive cough that has been worsening x3-4 days, causes him to vomit. Symptoms began with sinus pressure. +sick contacts, states his whole family has had a cold for the past week. Luyg-gf-jxuqrwrq SOB. Just recently got a new vape [...] and emphysematous changes/fibrosis. He was transferred to [facility] ICU for further management. Started on high [...] Normal [] Scar/Lesion/Mass Inspection of teeth/lips/gums Dentition: [x][place] Teeth []Dentures Lips/Gums: [x]Intact []Lesion Present Mucosa: [x][place] [x]Moist []Dry Neck: External Appearance Overall Appearance: [...] ABGs: Recent Labs 01/31/23 0959 PHART 7.450 [id number] 40.8 PO2ART 71.5* JUH4YGR 28.4* SO2ART 94.8* Lactic Acid: No results [...] needed given improvement. - Methadone verified with [facility]. Currently receives 125mg of liquid methadone daily with last dose the morning of admission on 01/29/2023. - addiction medicine following. Restarted on methadone. Continue current dose. GI Prophylaxis: None DVT Prophylaxis: Lovenox 40 q 24hr - creatinine clearance >30 Disposition: Transfer to [facility] if remains stable off precedex Critical [...] chronic pain (alleges gabapentin, methadone use -- [facility]), CAD s/p PCI (2021) who presented to [facility] ED on 01/29 for persistent non-productive cough that has been worsening x3-4 days, causes him to vomit. Symptoms began with sinus pressure. +sick contacts, states his whole family has had a cold for the past week. Vryy-pw-sqsfvlyt SOB. Just recently got a new vape [...] and emphysematous changes/fibrosis. He was transferred to [facility] ICU for further management. Started on high [...] Normal [] Scar/Lesion/Mass Inspection of teeth/lips/gums Dentition: [x][place] Teeth []Dentures Lips/Gums: [x]Intact []Lesion Present Mucosa: [x][place] [x]Moist []Dry Neck: External Appearance Overall Appearance: [...] Labs 01/29/23184501/29/23224401/31/23 0959 PHART -- 7.414 7.450 CTI0UNG -- 42.5 40.8 PO2ART -- 61.0* 71.5* NNC3FLC -- 27.2* 28.4* SO2ART -- 91.2* 94.8* [id number] 2L -- -- Lactic Acid: Recent Labs [...] intubated would pursue. - Methadone verified with [facility]. Currently receives 125mg of liquid [...] significant fluid accumulation (le has pulmonary edema) Die Engraving Supervisor Strength: Measurable reduction in stock counter strength (per rn) Nutrition Assessment: PER MD-42M hx alcohol, tobacco, and medical marijuana use (vape pen), COPD, HTN/HLD, chronic pain (alleges gabapentin, methadone use -- [facility]), CAD s/p PCI (2021) who presented to [facility] ED on 01/29 for persistent non-productive cough that has been worsening x3-4 days, causes him to vomit. Symptoms began with sinus pressure. +sick contacts, states his whole family has had a cold for the past week. Rmii-gp-kwonbwwq SOB. Just recently got a new vape [...] and emphysematous changes/fibrosis. He was transferred to [facility] ICU for further management. Interval Events: Patient [...] increased risk for respiratory failure . [facility] withdrawal protocol intubated, would req bronch .. Estimated Daily Nutrient Needs: Energy Requirements Based On: Kcal/kg Weight Used for Energy Requirements: Usual Weight for Energy Calculation (kg): 90.7 kg Total Energy Requirements (kcals/day): 20-25 or 1814 to 2268 Weight Used for Protein Requirements: [place] Weight in Kg Used for Protein Requirements: 75 kg Estimated Total Protein (g/day): 1.2-2 or 90-150 Estimated Daily Total Fluid (ml/day): or per md Nutrition Related Findings: per RN Eddie - can swallow-but sedated -violence vs staff- on precedex, on ciwa-[employer]PUT[employer]-KEEP SENDING TRAYS, has tremors ,abd distended , [...] wt variances) % Weight Change (Calculated): 5 [place] Body Weight (lbs) (Calculated): 166 lbs [place] Body Weight (Kg) (Calculated): 75 kg % [place] Body Weight (Calculated): 126.6 % BMI (kg/m2) [...] soon to determine Kathy Tim RD Contact: [phone] or secure chat ICU Progress Note Name: El Sirisha Luis : 1980(42 y.o.) Date: 01/31/23 Team: MICU Attending: Catia Subjective: Hospital Summary: El Smith is a 42M hx alcohol, tobacco, and medical marijuana use (vape pen), COPD, HTN/HLD, chronic pain (alleges gabapentin, methadone use -- [facility]), CAD s/p PCI (2021) who presented to [facility] ED on 01/29 for persistent non-productive cough that has been worsening x3-4 days, causes him to vomit. Symptoms began with sinus pressure. +sick contacts, states his whole family has had a cold for the past week. Sluf-yg-qpdxuwxi SOB. Just recently got a new vape [...] and emphysematous changes/fibrosis. He was transferred to [facility] ICU for further management. Interval Events: - [...] Normal [] Scar/Lesion/Mass Inspection of teeth/lips/gums Dentition: [x][place] Teeth []Dentures Lips/Gums: [x]Intact []Lesion Present Mucosa: [x][place] [x]Moist []Dry Neck: External Appearance Overall Appearance: [...] Labs 01/29/23184501/29/23224401/31/23 0959 PHART -- 7.414 7.450 MEC8WUP -- 42.5 40.8 PO2ART -- 61.0* 71.5* ADK3OXG -- 27.2* 28.4* SO2ART -- 91.2* 94.8* Q7RILXBG 2L -- -- Lactic Acid: Recent Labs [...] will verify Methadone dosing with outpatient services. ([facility]) GI Prophylaxis: None DVT Prophylaxis: [...] nutrition care. Pharmacy Vancomycin Consult Follow-Up Note Non-RN ENT Patients Current Dosinmg q12hr CREATININE Date Value [...] chronic pain (alleges gabapentin, methadone use -- [facility]), CAD s/p PCI (2021) who presented to [facility] ED on 01/29 for persistent non-productive cough that has been worsening x3-4 days, causes him to vomit. Symptoms began with sinus pressure. +sick contacts, states his whole family has had a cold for the past week. Tagz-dk-ykeeuwjv SOB. Just recently got a new vape [...] and emphysematous changes/fibrosis. He was transferred to [facility] ICU for further management. Interval Events: Patient [...] ABGs: Recent Labs 01/29/23184501/29/232244 PHART -- 7.414 HVB7EYQ -- 42.5 PO2ART -- 61.0* IOC1NRI -- 27.2* SO2ART -- 91.2* Z7WGTLKT 2L -- Lactic Acid: Recent Labs 01/29/23185014/23 [...] control goal 140-180 LDA - Device CVL [place] [facility] NG /OG Vascath Prophylaxis Nutrition as tolerated [...] [] Acute Renal Failure, oliguric [] , RN ENT indications [] [] ESRD on HD Lab [...] physicians, excluding procedures. documented in this encounter [facility] 02-03-2023 Note Formatting of this n ote is different from the original. Images from the original note were not included. Care Management Progress Note Weaned off oxygen and is 97% on RA. On po prednisone and po augmentin. Methadone being dosed daily. Po ativan x 2 today. Plan to return to [facility] to continue methadone MAT after discharge. Discharge [...] (Days): 5 GMLOS: No GMLOS Documented . [facility] 02-02-2023 Note Formatting of this n ote is different from the original. Images from the original note were not included. Care Management Progress Note Patient remains on ICU s/p ARF with hypoxia related to vape pen damage. Clinical updates: Mentation is improved today, having normal conversations with staff. Add Med did Cons yesterday, plan for [facility] or [facility]. Discharge plan: Home with outpatient [...] 01/29/2023 9:50 PM 02/03/2023 Maral Olivarez APRN MAILROOM ASSISTANT 01/29/2023 7:39 PM Length of Stay (Days): 4 GMLOS: No GMLOS Documented T [facility] 02-02-2023 Note Formatting of this n ote might be different from the original. ICU Transfer Checklist Transfer Med Reconciliation (resume home meds if able, convert to PO if able) Complete Antibiotics (name, indication, duration, convert to PO if able) Yes, addressed in today's progress note Steroid (indication, duration, convert to PO if able) Yes, addressed in today's progress note Anticipated Prentiss Medications (ICU initiated) or Dose Changes and Indication No Permanently Discontinued Home Medications and Reason for medication contraindication No Conrad Catheter (please remove if able. Note: place DC order) No Central Line (please remove if able. Note: place DC order) No Transfer Discussed with: Dr. Trent - [facility] If additional questions for ICU team within 24 hours of ICU transfer, page [phone] for clarifications. [facility] 02-02-2023 Note Formatting of this n ote might be different from the original. Pt transfered out of ICU [facility] Work Phone: 02-01-2023 Consult note Associated Order [...] mg of methadone MAT daily thru the [facility] (confirmed today by Dr. Montalvo), COPD, HTN, HLD, and CAD that was admitted for management of respiratory failure. He initially presented to [facility] ED with cough and dyspnea. He was transferred to [place] ICU where he currently remains. Apparently several [...] dose at 125 mg daily thru the [facility]. Since O2 status is improving and he [...] pending. Of note, patient left AMA from [facility] when admitted for PNA management in September [...] no evidence. Medication Assisted Treatment: methadone thru [facility]. 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 He wants to go back to [facility] to continue methadone MAT after discharge. Lacks insight and judgement into the nature of his addiction issues based on past admissions. Alcohol withdrawal Opioid withdrawal Nicotine withdrawal Precedex gtt managed by crit care Phenobarbital 130 mg IV q 6 hours PRN ONLY for agitation Ativan PRN per [facility] protocol for alcohol withdrawal Giving [...] clinical information on the day of visit. [facility] 02-01-2023 Consult note Associated Order (s): IP [...] mg of methadone MAT daily thru the [facility] (confirmed today by Dr. Montalvo), COPD, HTN, HLD, and CAD that was admitted for management of respiratory failure. He initially presented to [facility] ED with cough and dyspnea. He was transferred to [place] ICU where he currently remains. Apparently several [...] dose at 125 mg daily thru the [facility]. Since O2 status is improving and he [...] pending. Of note, patient left AMA from [facility] when admitted for PNA management in September [...] no evidence. Medication Assisted Treatment: methadone thru [facility]. 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) Gastroenteritis 11/23/2018 Last Assessment & Plan: Predominantly vomiting; ?food poisoning vs viral gastroenteritis IV hydration PRN antiemetics Hyperlipidemia Hypertension Iritis of left eye 09/20/2018 AL (myocardial infarction) ([facility]) Opioid dependence, uncomplicated ([facility]) 10/27/2021 Presence of stent in right coronary [...] 01/30/2023 Patient Name: EL SMITH : 1980 [facility]#: [id number] Exam Date/Time: 01/30/2023 05:16 Procedure: XR CHEST [...] 01/29/2023 Patient Name: EL SMITH : 1980 [facility]#: [id number] Exam Date/Time: 01/29/2023 20:35 Procedure: CT CHEST [...] 01/29/2023 [facility]: [facility] 1980 [id number] Exam Date/Time: 01/29/2023 18:57 Procedure: XR CHEST [...] time. He wants to go back to [facility] to continue methadone MAT after discharge. Lacks insight and judgement into the nature of his addiction issues based on past admissions. Alcohol withdrawal Opioid withdrawal Nicotine withdrawal Precedex gtt managed by crit care Phenobarbital 130 mg IV q 6 hours PRN ONLY for agitation Ativan PRN per [facility] protocol for alcohol withdrawal Giving [...] Consult Date: 01/30/23 Consulted By: Maral Olivarez Room:[facility] Patient Name: El Smith Allergies: Nickel [...] sodium chloride 0.9 % 250 mL IVPB ([facility]) 500 mg 01/29/231941 New Bag cefTRIAXone (Rocephin) [...] Name: Carmelita Serrano RPh, PharmD Pager: Phone: [phone] documented in this encounter [facility] 01-31-2023 Consult note Formatting of th is note might be different from the original. Consult acknowledged. Full H&P to follow Recommend holding methadone dose for now as he is in acute respiratory failure. It does not seem methadone dose has been confirmed by his provider either. Continue precedex and ativan prn for alcohol withdrawal. [facility] 01-31-2023 Note Formatting of this n ote might be different from the original. Care Managment Initial Assessment Date: 01/31/2023 Patient Name: El Smith : 1980 Patient Information Source of Information: Patient African History Professor Name/Contact Information: Charis Novak via telephone Cognition/Language: Unable to Assess Permission given to speak with patient district sales representative/caregiver as indicated: Yes Confirmation of Payer with patient/family: Yes Payer Name: Mary [facility] : No Confirmation of Primary Care Physician: [...] Coverage: Yes Pharmacy Used: [facility] in [place] Medication Management: Independent Transportation/Shopping: Independent Transportation Mode: [...] prescription coverage, uses [facility] in [place]. Chhaya denies any financial difficulties. DCP TBD based on mental and health status. TCC will continue to monitor. Patient verbalizes understanding and is in agreement with POC. Sandee Moreland RN [facility] 01-31-2023 Consult note Formatting of th is note might be different from the original. Vancomycin therapy has been discontinued by Dr. Montalvo on 01-31-23. Thank you for the consult. Pharmacy signing off for vancomycin dosing. Subha Burleson [facility], Date: 01/31/23 Time: 12:11 PM [facility] 01-30-2023 Nurse Note Patient switched to green slip per Dr. Tolentino, murtazater discontinued. Patient sedated with stable vitals, will monitor [facility] 01-30-2023 Nurse Note Patient switched to green [...] redirected. Will monitor documented in this encounter [facility] 01-30-2023 Nurse Note Sitter at bedside for yellow slip [facility] 01-30-2023 Nurse Note Continues agitation and delusions/hallucinations. Medicated, Dr. Tolentino placed medical hold. T [facility] 01-30-2023 Nurse Note Highly agitated, cursing and getting out of bed, ripped off oxygen. RN and Dr. Tolentino at bedside. Medicated, will monitor T [facility] 01-30-2023 Nurse Note Bed alarm going off, patient out of bed agitated, oxygen off with 02 sats 86 to 88%, RN able to redirect back to bed, oxygen reapplied. Will medicate and monitor T [facility] 01-30-2023 Nurse Note Out of bed, agitiated, walked to commode, reorientation attempted. Dr. Jacobo at bedside. T [facility] 01-30-2023 Plan of care note Pt intermittently [...] hyperactive delirium, withdrawal, non compliance with therapy. [facility] 01-30-2023 Nurse Note Bed alarm going off, patient attempting to get out of bed to go home. Able to be redirected. Will monitor T [facility] 01-30-2023 Consult note Formatting of th is [...] sodium chloride 0.9 % 250 mL IVPB ([facility]) 500 mg 01/29/231941 New Bag cefTRIAXone (Rocephin) [...] Name: Carmelita Serrano RPh, PharmD Pager: Phone: [phone] [facility] 01-29-2023 Note NOTE: This result is for medical treatment only. Analysis performed using non-forensic procedures. [facility] 01-29-2023 History and physical note Images from [...] chronic pain (alleges gabapentin, methadone use -- [facility]), CAD s/p PCI (2021) who presented to [facility] ED on 01/29 for persistent non-productive cough that has been worsening x3-4 days, causes him to vomit. Symptoms began with sinus pressure. +sick contacts, states his whole family has had a cold for the past week. Tkbx-fh-vzquasze SOB. Just recently got a new vape [...] and emphysematous changes/fibrosis. He was transferred to [facility] ICU for further management. 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) ([facility]) Gastroenteritis 11/23/2018 Last Assessment & Plan: Predominantly vomiting; ?food poisoning vs viral gastroenteritis IV hydration PRN antiemetics Hyperlipidemia Hypertension Iritis of left eye 09/20/2018 AL (myocardial infarction) ([facility]) Opioid dependence, uncomplicated ([facility]) 10/27/2021 Presence of stent in right coronary [...] data in the 24 hours ending 01/29/23 2608 EXAM: PHYSICAL EXAM: General Appearance: []No acute distress []Obese []Cachectic []Thin [x]ill Skin: Temperature [x]Warm []Cool Rash []Yes [x]No Tattoo(s) [x]Yes []No HEENT: Pupils round and react [x]Yes []No Sclera []Icteric [x]Non-Icteric Conjunctiva [x]Normal []Pale Pinnae [x]Normal []Other Dentition [x][place] Teeth []Dentures []Edentulous Oral Mucosa [x][place] []Moist [x]Dry Oral ETT []Present [x]Absent Neck: [...] [x]yes []no Oriented []x0 []x1 []x2 [x]x3 BLACKFEET []Yes [x]No Follows Commands [x]Yes []No []Unresponsive [...] ASA ordered -Chronic pain -- follows with [facility] -- states he takes gabapentin, no sign [...] of care discussed with Dr Austin Carson. [facility] 01-29-2023 History and physical note Images from [...] chronic pain (alleges gabapentin, methadone use -- [facility]), CAD s/p PCI (2021) who presented to [facility] ED on 01/29 for persistent non-productive cough that has been worsening x3-4 days, causes him to vomit. Symptoms began with sinus pressure. +sick contacts, states his whole family has had a cold for the past week. Vrrn-vg-nmrakdqt SOB. Just recently got a new vape [...] and emphysematous changes/fibrosis. He was transferred to [facility] ICU for further management. 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) Gastroenteritis 11/23/2018 Last Assessment & Plan: Predominantly vomiting; ?food poisoning vs viral gastroenteritis IV hydration PRN antiemetics Hyperlipidemia Hypertension Iritis of left eye 09/20/2018 AL (myocardial infarction) ([facility]) Opioid dependence, uncomplicated ([facility]) 10/27/2021 Presence of stent in right coronary [...] data in the 24 hours ending 01/29/23 2634 EXAM: PHYSICAL EXAM: General Appearance: []No acute distress []Obese []Cachectic []Thin [x]ill Skin: Temperature [x]Warm []Cool Rash []Yes [x]No Tattoo(s) [x]Yes []No HEENT: Pupils round and react [x]Yes []No Sclera []Icteric [x]Non-Icteric Conjunctiva [x]Normal []Pale Pinnae [x]Normal []Other Dentition [x][place] Teeth []Dentures []Edentulous Oral Mucosa [x][place] []Moist [x]Dry Oral ETT []Present [x]Absent Neck: [...] Mass []Present [x]Absent Extremities: Cyanosis []Present [x]Absent CDAENA ([x]RUE [x]RLE [x]LUE [x]LLE) Clubbing []Yes [x]No Edema []Yes [x]No Neurologic: Alert [x]yes []no Oriented []x0 []x1 []x2 [x]x3 BLACKFEET []Yes [x]No Follows Commands [x]Yes []No []Unresponsive [...] ASA ordered -Chronic pain -- follows with [facility] -- states he takes gabapentin, no sign [...] Dr Austin Carson. documented in this encounter [facility] 01-29-2023 Emergency department Note Report given to [facility] ICU. Pt is currently being transported to [facility] ICU. Upon leaving pt SpO2 was high 90's. Pt left on non-rebreather and Zithromax infusing @ transfer. Caitlin Wise RN 01/29/232133 [facility] 01-29-2023 Emergency department Note Report given to [facility] ICU. Pt is currently being transported to [facility] ICU. Upon leaving pt SpO2 was high 90's. Pt left on non-rebreather and Zithromax infusing @ transfer. Caitlin Wise RN 01/29/232133 Placed call to [facility] spoke with [employer]ee[employer]. First [employer]ee[employer]e asks if pt can go off the event host for transfer. Informed Pee[employer]e that with pt going to ICU he needs event host. Peewee gives ETA of 0400. He states there are no other companies with availability tonight but if we can get it outsourced we will let you know and if we can get there sooner we will. Melani Fraire RN 01/29/231955 Received call from [facility] with Cale from [facility] ICU, call transferred to Dr. Quispe. Melani [...] myalgias. 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) ([facility]) Gastroenteritis 11/23/2018 Last Assessment & Plan: Predominantly vomiting; ?food poisoning vs viral gastroenteritis IV hydration PRN antiemetics Hyperlipidemia Hypertension Iritis of left eye 09/20/2018 AL (myocardial infarction) ([facility]) ([facility]) Opioid dependence, uncomplicated ([facility]) 10/27/2021 Presence of stent in right coronary [...] admit to the ICU. His preference is [facility] ICU. COVID/RSV/Flu negative. I spoke with Cale Olivarez CNP with ICU at [facility] who accepts patient for transfer, requests CTA [...] were not enacted. Julian Quispe MD 01/29/23 3860 Pt placed on 35% nenti-mask for SPO2 [...] non-rebreather. [facility] remains [facility] [place] [place]. Pt sinus tach on monitor documented in this encounter [facility] 01-29-2023 Note 1. Somewhat limited evaluation. No [...] Date/Time: 01/29/2023 8:39 PM EDT [facility] 01-29-2023 Emergency department Note Placed call to [facility] spoke with Peewee. First Peewee asks if pt can go off the event host for transfer. Informed Peewee that with pt going to ICU he needs event host. Peewee gives ETA of 0400. He states there are no other companies with availability tonight but if we can get it outsourced we will let you know and if we can get there sooner we will. Melani Fraire RN 01/29/231955 [facility] 01-29-2023 Emergency department Note Received call from [facility] with Cale from [facility] ICU, call transferred to Dr. Quispe. Melani Fraire RN 01/29/231934 [facility] 01-29-2023 Emergency department Triage note Pt placed [...] find out what is wrong with me. [facility] 01-29-2023 Emergency department Triage note Pt in CT. SPO2 remains in the 90's on non-rebreather. Pt remains anxious after ativan IVP. [facility] transport to transport pt, eta 2109. Pt sinus tach on monitor [facility] 01-29-2023 Physician Emergency department Note EMERGENCY DEPARTMENT [...] left eye 09/20/2018 Coronary artery disease involving [place] coronary artery of [place] heart without angina pectoris 10/02/2021 Degenerative disc disease, lumbar Depression Discogenic syndrome, 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 Drug abuse ([facility]) ([facility]) Gastroenteritis 11/23/2018 Last Assessment & Plan: Predominantly vomiting; ?food poisoning vs viral gastroenteritis IV hydration PRN antiemetics Hyperlipidemia Hypertension Iritis of left eye 09/20/2018 AL (myocardial infarction) ([facility]) ([facility]) Opioid dependence, uncomplicated ([facility]) 10/27/2021 Presence of stent in right coronary [...] Provider Giovani Collado MD 01/30/23 0649 T [facility] 01-29-2023 Physician Emergency department Note I received [...] admit to the ICU. His preference is [facility] ICU. COVID/RSV/Flu negative. I spoke with Cale Olivarez CNP with ICU at [facility] [place] who accepts patient for transfer, requests CTA [...] were not enacted. Julian Quispe MD 01/29/23 0071 [facility] Work Phone: 10-10-2022 Hospital Discharge instructions Betsy [...] other problems arise. documented in this encounter [facility] 10-10-2022 Emergency department Note EMERGENCY DEPARTMENT ENCOUNTER [...] left eye 09/20/2018 Coronary artery disease involving [place] coronary artery of [place] heart without angina pectoris 10/02/2021 Degenerative disc disease, lumbar Depression Discogenic syndrome, 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 Drug abuse ([facility]) ([facility]) Gastroenteritis 11/23/2018 Last Assessment & Plan: Predominantly vomiting; ?food poisoning vs viral gastroenteritis IV hydration PRN antiemetics Hyperlipidemia Hypertension Iritis of left eye 09/20/2018 AL (myocardial infarction) ([facility]) ([facility]) Opioid dependence, uncomplicated ([facility]) 10/27/2021 Presence of stent in right coronary [...] [facility]: Labs Reviewed - No data to [...] with hand surgery. I have contacted the [facility] to coordinate follow-up. Medications provided in the [...] a/ox3 and ambulatory documented in this encounter [facility] 10-10-2022 Emergency department Triage note Pt comes into ED complaining of right index finger infection. Pt said he cut his finger over a month ago but onset of swelling, drainage and pain started x2 days ago. Pt is a/ox3 and ambulatory [facility] 10-10-2022 Physician Emergency department Note EMERGENCY DEPARTMENT [...] left eye 09/20/2018 Coronary artery disease involving [place] coronary artery of [place] heart without angina pectoris 10/02/2021 Degenerative disc disease, lumbar Depression Discogenic syndrome, 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 Drug abuse ([facility]) ([facility]) Gastroenteritis 11/23/2018 Last Assessment & Plan: Predominantly vomiting; ?food poisoning vs viral gastroenteritis IV hydration PRN antiemetics Hyperlipidemia Hypertension Iritis of left eye 09/20/2018 AL (myocardial infarction) ([facility]) ([facility]) Opioid dependence, uncomplicated ([facility]) 10/27/2021 Presence of stent in right coronary [...] Physician [facility] LAB[facility]: Labs Reviewed - No data to [...] with hand surgery. I have contacted the [facility] to coordinate follow-up. Medications provided in the [...] Emergency Medicine Provider Betsy Campos DO 10/10/221816 [facility] 09-25-2022 Hospital Discharge instructions Patient Education 09/24/2022 [...] wet, you can dry it with a hairspring truer. Unless told otherwise, you can take off [...] or as directed by your healthcare provider [phone] [employer]. [address] [place] [address], [place] [address]. All rights reserved. This information is not [...] are taking other medicines. You may use bkce-mff-wnpfixp medicine as directed on the bottle to [...] Numbness in the groin or genital area [id number] [employer]. [address] [place] [address]. All rights reserved. This information is not intended as a substitute for professional medical care. Always follow your healthcare professional's instructions. Follow Up Care 09/24/2022 22:18:09 With:SHANIQUE, CLINIC Address: [place] [address]- When:2-4 days With:PUSHPA BELLO MD Address: [address] [address] [phone] When:2-4 days [facility] 09-24-2022 Note Discharge Instructions Thank you for allowing [facility] to assist you with your healthcare needs. [...] [place] When Within 2-4 days Where: [address] [place] [address] [address] [place] [address]- Follow Up with PUSHPA BELLO MD When Within 2-4 days Where: [address] [address] [phone] Allergies NKA Medications Please ask your primary [...] not expected to produce life threatening symptoms. retirement use of high doses can lead to [...] may report side effects to FDA at 4-197-SBR-0757. What other drugs will affect dexamethasone? Sometimes [...] may affect dexamethasone. This includes prescription and orjy-zbb-swuueta medicines, vitamins, and herbal products. Not all [...] to ensure that the information provided by [employer]. ('[employer]') is accurate, up-to-date, and complete, but no guarantee is made to that effect. Drug information contained herein may be time sensitive. [employer] information has been compiled for use by healthcare practitioners and consumers in the [place] and therefore [employer] does not warrant that uses outside of the [place] are appropriate, unless specifically indicated otherwise. [employer] drug information does not endorse drugs, diagnose patients or recommend therapy. [employer] drug information is an informational resource designed [...] effective or appropriate for any given patient. [employer] does not assume any responsibility for any aspect of healthcare administered with the aid of information [employer] provides. The information contained herein is not intended to cover all possible uses, directions, precautions, warnings, drug interactions, allergic reactions, or adverse effects. If you have questions about the drugs you are taking, check with your doctor, nurse or pharmacist. Copyright 8009-9805 [employer]. Version: 8.01. Revision Date: 02/20/2020. Education Materials [...] wet, you can dry it with a hairspring truer. Unless told otherwise, you can take off [...] or as directed by your healthcare provider [phone] [employer]. [address] [place] [address], [place] [address]. All rights reserved. This information is not [...] are taking other medicines. You may use uwkz-bnf-nrgjijk medicine as directed on the bottle to [...] Numbness in the groin or genital area 4950-7626 [employer]. [address] [place] [address]. All rights reserved. This information is not intended as a substitute for professional medical care. Always follow your healthcare professional's instructions. Additional Information VACCINATE! IT SAVES LIVES! Members of the community who have not yet received the COVID-19 vaccine and would like to receive it can visit one of [facility] vaccine clinics. There are many vaccine clinic locations within the [facility]. For locations and available times, please visit [email or web address] [email or web address] It is important to note that some COVID mobile vaccine clinics are held outdoors and may be canceled in rainy or stormy conditions. To learn more about pediatric vaccinations (ages 5-11), we invite you to visit the [facility] webpage. https://[email or web address]/pag es/[email or web address]-Tztwd-Awomlvgqcmo-Frequent ys-Bvubt-Pynrepdrk.html To learn more about the COVID-19 vaccine, we invite you to visit the CDC website for a list of frequently asked questions. https://www.cdc.gov/coronavirus/-ncov/vaccines/faq.html [employer] Patient Portal Access Instructions: Stay connected with your healthcare team and access your personal medical information anytime with the [employer] Patient Portal. If you would like a full copy of your medical records please contact the [facility] Medical Records Department Tuesday through Tuesday between 8a.m. and 4:30p.m. Please follow the directions below to access the portal: 1.Access the email account you provided upon registration to the [facility].2.Look for an invitation email from [facility].3.Open the email and access the invitation link: Accept Invitation to [employer].Fill in the required worrell to create your account. Sign into [email or web address] with your username and password that you [...] you will allow to register on the [facility] Patient Portal for access to your information. You can also access the [employer] Patient Portal on the [employer] micah. Simply click on Health Records under [...] Call your local pharmacy or go to [email or web address] to find one close to you.3.Make use of household items: Use cat litter or old coffee grounds to dispose medications if other options are not available. Mix your drugs with these household products, seal them in an airtight container and throw it into the garbage. Call [facility]: [phone] to be sure your drugs can be [...] aware that I should contact my doctor. Patient/African History Professor Signature: Date/Time: Relationship to Patient: ___ Witness Name/Signature: Date/Time: [facility] 09-24-2022 Note ORIGINAL EXAMINATION: THREE [...] Sign Date: 09/24/2022 11:17:39 PM Ordering Provider: [facility] 09-24-2022 Note ORIGINAL EXAMINATION: 3 XRAY [...] Sign Date: 09/24/2022 11:08:26 PM Ordering Provider: [facility] 09-24-2022 Note ORIGINAL EXAMINATION: 2 XRAY [...] 09/24/2022 11:04:24 PM Ordering Provider: [facility] 09-24-2022 Note ORIGINAL EXAMINATION: THREE XRAY VIEWS [...] 09/24/2022 11:17:39 PM Ordering Provider: [facility] 09-24-2022 Note ORIGINAL EXAMINATION: 3 XRAY VIEWS [...] 09/24/2022 11:08:26 PM Ordering Provider: [facility] 09-24-2022 Note ORIGINAL EXAMINATION: 2 XRAY VIEWS [...] 09/24/2022 11:04:24 PM Ordering Provider: [facility]IL [facility] 09-19-2022 Nurse Note Patient restless and agitated [...] with mother who encouraged him to stay. slot shift manager hospitalist made aware of patient verbalizing he wants AMA papers. Security called and at the bedside to help de-escalate patient. Patient was adamant that he was leaving. PIV removed, heart monitor removed, patient was presented with AMA papers and was walked to exit by security. [facility] 09-19-2022 Nurse Note Patient restless and agitated [...] with mother who encouraged him to stay. slot shift manager hospitalist made aware of patient verbalizing he wants AMA papers. Security called and at the bedside to help de-escalate patient. Patient was adamant that he was leaving. PIV removed, heart monitor removed, patient was presented with AMA papers and was walked to exit by security. documented in this encounter [facility] 09-18-2022 History and physical note Images from [...] left eye 09/20/2018 Coronary artery disease involving [place] coronary artery of [place] heart without angina pectoris 10/02/2021 Degenerative disc disease, lumbar Depression Discogenic syndrome, 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 Drug abuse ([facility]) ([facility]) Gastroenteritis 11/23/2018 Last Assessment & Plan: Predominantly vomiting; ?food poisoning vs viral gastroenteritis IV hydration PRN antiemetics Hyperlipidemia Hypertension Iritis of left eye 09/20/2018 AL (myocardial infarction) ([facility]) ([facility]) Opioid dependence, uncomplicated (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 No Code status: Prior -see below [...] H&P to the patient's PCP. [facility] you. 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) ([facility]) Gastroenteritis 11/23/2018 Last Assessment & Plan: Predominantly vomiting; ?food poisoning vs viral gastroenteritis IV hydration PRN antiemetics Hyperlipidemia Hypertension Iritis of left eye 09/20/2018 AL (myocardial infarction) ([facility]) ([facility]) Opioid dependence, uncomplicated (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 No Code status: Prior -see below [...] PCP. Thank you. 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) 10/27/2021 Presence of stent in right coronary [...] (*) FIO2 Narrative: Performed by: Deandre Mehta [facility], [address] [place] [id number] CLIA ID: [id number] SARS-COV-2, FLU A/B, AND RSV COMBO - [...] In compliance with this authorization, please visit www.fda.gov/media/250572/download or www.fda.gov/media/886716/download to access the applicable information sheets. ETHANOL [...] Culture. Procedure Abnormality Status --------- ------ Complete Urinalysis[[id number]] Abnormal Final result Please view results for these tests on the individual orders. BLOOD GAS, VENOUS CBC WITH AUTO DIFFERENTIAL COMPREHENSIVE METABOLIC PANEL WITH MG REFLEX Narrative: The following orders were created for panel order Comprehensive Metabolic Panel w/ Mg Reflex. Procedure Abnormality Status --------- ------ Comprehensive metabolic p...[[id number]] Please view results for these tests on [...] sounds heart regular rate and rhythm. [BM] 1656 CXR: 1. Bilateral perihilar interstitial opacities or [...] sodium chloride 0.9 % 250 mL IVPB (ADD-[place]) (0 mg IntraVENous Stopped 09/18/222026) potassium chloride [...] sodium chloride 0.9 % 250 mL IVPB (ADD-[place]) (0 mg IntraVENous Stopped 09/18/222026) potassium chloride CR (Klor-Con M20) ER tablet 40 mEq (40 mEq Oral Given 09/18/221811) REVAL: CRITICAL CARE TIME FINAL IMPRESSION 1. Community acquired bacterial pneumonia 2. Acute respiratory failure with hypoxia (CMS/HCC) (HCC) 3. COPD exacerbation ([facility]) DISPOSITION Admit 09/18/2022 07:10:23 PM PATIENT REFERRED [...] Melani Chris 09/18/221751 documented in this encounter [facility] 09-18-2022 Note NOTE: This result is for medical treatment only. Analysis performed using non-forensic procedures. [facility] 09-18-2022 Emergency department Note Pt walked back to ED room 19 and placed on the monitor. Monitor showed 85% on RA with good waveform, pt placed on 4lpm via NC and pt improved to 95%. Melani Chris 09/18/221751 [facility] 09-18-2022 Emergency department Triage note C/o SOB that started a couple days ago. Pt recently diagnosed with emphysema. Denies taking any medications for it. Endorses tobacco use, 2PPD x32 years. States he is having CP that started 1 week ago. [facility] 09-18-2022 Physician Emergency department Note EMERGENCY DEPARTMENT [...] left eye 09/20/2018 Coronary artery disease involving [place] coronary artery of [place] heart without angina pectoris 10/02/2021 Degenerative disc disease, lumbar Depression Discogenic syndrome, 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 Drug abuse ([facility]) ([facility]) Gastroenteritis 11/23/2018 Last Assessment & Plan: Predominantly vomiting; ?food poisoning vs viral gastroenteritis IV hydration PRN antiemetics Hyperlipidemia Hypertension Iritis of left eye 09/20/2018 AL (myocardial infarction) ([facility]) ([facility]) Opioid dependence, uncomplicated ([facility]) 10/27/2021 Presence of stent in right coronary [...] 82.1 (*) FIO2 Narrative: [facility] by: [facility], [address] [place] [address] CLIA ID: [id number] SARS-COV-2, FLU A/B, AND RSV COMBO - [...] In compliance with this authorization, please visit www.fda.gov/media/817126/download or www.fda.gov/media/301105/download to access the applicable information sheets. ETHANOL [...] Culture. Procedure Abnormality Status --------- ------ Complete Urinalysis[[id number]] Abnormal Final result Please view results for these tests on the individual orders. BLOOD GAS, VENOUS CBC WITH AUTO DIFFERENTIAL COMPREHENSIVE METABOLIC PANEL WITH MG REFLEX Narrative: The following orders were created for panel order Comprehensive Metabolic Panel w/ Mg Reflex. Procedure Abnormality Status --------- ------ Comprehensive metabolic p...[[id number]] Please view results for these tests on [...] sodium chloride 0.9 % 250 mL IVPB (ADD-[place]) (0 mg IntraVENous Stopped 09/18/222026) potassium chloride [...] sodium chloride 0.9 % 250 mL IVPB (ADD-[place]) (0 mg IntraVENous Stopped 09/18/222026) potassium chloride [...] Emergency Medicine Provider Ene Sarabia DO 09/18/222113 [facility] 09-16-2022 Hospital course Narrative Discharge Summary El Smith : 1980 ADMIT DATE: 09/16/2022 DISCHARGE DATE: 09/16/2022 PRIMARY CARE PHYSICIAN: KAY KERR VISIT STATUS: Admission CODE STATUS: Full Code DISCHARGE DIAGNOSES: Principal Problem: COPD exacerbation (HCC) HOSPITAL COURSE: 41 y.o. male with past medical history below who presents with chief complaint listed above. Patient presents to the [facility] ED with complaints of chest pain. Symptoms [...] Of note, patient was recently admitted [facility], into detox unit. Left AMA, 08/26/2022. In [...] since 5 AM this morning. Transferred to [facility] under hospitalist service. Upon hospitalist eval, patient [...] 09/16/2022, 5:06 PM documented in this encounter [facility] 09-16-2022 Nurse Note 1038 Transferred from via bed. Connected to monitor. 1105 Agitated, medication given per [facility] protocol 1255 Precedex drip started for agitation 1511 Agitation, trying to get out of bed. Meds given per [facility] protocol, see JUN 1529 Security at bedside. Pt yelling, trying to rip off medical equipment 1555 Pulled off oxygen and wage and salary specialist, yelling he wants to go home. Precedex [...] with security and mother Ruth via wheelchair [facility] 09-16-2022 Nurse Note 1038 Transferred from via bed. Connected to monitor. 1105 Agitated, medication given per [facility] protocol 1255 Precedex drip started for agitation 1511 Agitation, trying to get out of bed. Meds given per [facility] protocol, see JUN 1529 Security at bedside. Pt yelling, trying to rip off medical equipment 1555 Pulled off oxygen and wage and salary specialist, yelling he wants to go home. Precedex [...] Ruth via wheelchair documented in this encounter [facility] 09-16-2022 History of Present illness Narrative Patient [...] out by security. Patient to floor from [facility]. CI[facility] 19. 3 mg IV ativan given per protocol. RN ENT RN and Dr Nelson paged to bedside to evaluate patient. documented in this encounter [facility] 09-16-2022 Note NOTE: This result is for medical treatment only. Analysis performed using non-forensic procedures. [facility] 09-16-2022 Consult note Associated Order (s): IP [...] complaint listed above. Patient presents to the [facility] with complaints of chest pain. Symptoms [...] Of note, patient was recently admitted in [facility], into detox unit. Left AMA, 08/26/2022. In [...] since 5 AM this morning. Transferred to [facility] under hospitalist service. 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) ([facility]) Gastroenteritis 11/23/2018 Last Assessment & Plan: Predominantly vomiting; ?food poisoning vs viral gastroenteritis IV hydration PRN antiemetics Hyperlipidemia Hypertension Iritis of left eye 09/20/2018 AL (myocardial infarction) ([facility]) ([facility]) Opioid dependence, uncomplicated ([facility]) 10/27/2021 Presence of stent in right coronary [...] Normal [] Scar/Lesion/Mass Inspection of teeth/lips/gums Dentition: [x][place] Teeth []Dentures Lips/Gums: [x]Intact []Lesion Present Mucosa: [][place] []Moist []Dry Neck: External Appearance Overall Appearance: [...] 15.0* ABGs: No results for input(s): PHART, TUD7GXX, PO2ART, DQK9CBG, SO2ART, F4PMVBNC in the last 72 hours. Lactic Acid: [...] Staphylococcus species DETECTED. Presumptive identification performed using [employer] FilmArray PCR methodology; confirmatory identification to follow. _ The [employer] BCID2 PCR Panel can detect the following [...] team members and physicians, excluding procedures. T [facility] 09-16-2022 Consult note Associated Order (s): IP [...] complaint listed above. Patient presents to the [facility] with complaints of chest pain. Symptoms [...] Of note, patient was recently admitted in [facility], into detox unit. Left AMA, 08/26/2022. In [...] since 5 AM this morning. Transferred to [facility] under hospitalist service. 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) ([facility]) Gastroenteritis 11/23/2018 Last Assessment & Plan: Predominantly vomiting; ?food poisoning vs viral gastroenteritis IV hydration PRN antiemetics Hyperlipidemia Hypertension Iritis of left eye 09/20/2018 AL (myocardial infarction) ([facility]) ([facility]) Opioid dependence, uncomplicated ([facility]) 10/27/2021 Presence of stent in right coronary [...] Normal [] Scar/Lesion/Mass Inspection of teeth/lips/gums Dentition: [x][place] Teeth []Dentures Lips/Gums: [x]Intact []Lesion Present Mucosa: [][place] []Moist []Dry Neck: External Appearance Overall Appearance: [...] 15.0* ABGs: No results for input(s): PHART, NBC0XUU, PO2ART, CPS5KOM, SO2ART, Y5GZXKVX in the last 72 hours. Lactic Acid: [...] Staphylococcus species DETECTED. Presumptive identification performed using [employer] PCR methodology; confirmatory identification to follow. _ The [employer] BCID2 PCR Panel can detect the following [...] physicians, excluding procedures. documented in this encounter [facility] 09-16-2022 History and physical note Images from [...] complaint listed above. Patient presents to the [facility] with complaints of chest pain. Symptoms [...] since 5 AM this morning. Transferred to [facility] under hospitalist service. 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) ([facility]) Gastroenteritis 11/23/2018 Last Assessment & Plan: Predominantly vomiting; ?food poisoning vs viral gastroenteritis IV hydration PRN antiemetics Hyperlipidemia Hypertension Iritis of left eye 09/20/2018 AL (myocardial infarction) ([facility]) ([facility]) Opioid dependence, uncomplicated ([facility]) 10/27/2021 Presence of stent in right coronary [...] s/p DORIS RCA (September 2021) Hx of AL HTN HLD Chronic lumbago Lumbar stenosis Anxiety [...] for PNA coverage. Possible aspiration event and BEE RANCHER advised. Will defer remaninig orders to ICU [...] Contact: LuisLouise Mobile Relation: Sister Preferred language: Barbadian Professional Builder needed? No Code status: No Order -see [...] H&P to the patient's PCP. Thank you. [employer] Phone: 09-16-2022 History and physical note Images [...] complaint listed above. Patient presents to the [facility] with complaints of chest pain. Symptoms [...] since 5 AM this morning. Transferred to [facility] under hospitalist service. 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) ([facility]) Gastroenteritis 11/23/2018 Last Assessment & Plan: Predominantly vomiting; ?food poisoning vs viral gastroenteritis IV hydration PRN antiemetics Hyperlipidemia Hypertension Iritis of left eye 09/20/2018 AL (myocardial infarction) ([facility]) ([facility]) Opioid dependence, uncomplicated ([facility]) 10/27/2021 Presence of stent in right coronary [...] s/p DORIS RCA (September 2021) Hx of AL HTN HLD Chronic lumbago Lumbar stenosis Anxiety [...] for PNA coverage. Possible aspiration event and BEE RANCHER advised. Will defer remaninig orders to ICU [...] Louise Smith Mobile Relation: Sister Preferred language: Barbadian Professional Builder needed? No Code status: No Order -see [...] PCP. Thank you. documented in this encounter [facility] 09-16-2022 Miscellaneous Notes Paged to bedside for non-emergent assessment r/t pt withdrawal symptoms. Pt diaphoretic with tremors hallucinations and tactile disturbances. Pt had been given ativan and phenobarb and was still very anxious. Dr. Nelson placed critical care consult. Pt transferred to ICU for precedex drip. documented in this encounter [facility] 09-16-2022 Note Formatting of this n ote might be different from the original. Paged to bedside for non-emergent assessment r/t pt withdrawal symptoms. Pt diaphoretic with tremors hallucinations and tactile disturbances. Pt had been given ativan and phenobarb and was still very anxious. Dr. Nelson placed critical care consult. Pt transferred to ICU for precedex drip. [facility] 09-16-2022 Note Formatting of this n ote might be different from the original. Paged to bedside for non-emergent assessment r/t pt withdrawal symptoms. Pt diaphoretic with tremors hallucinations and tactile disturbances. Pt had been given ativan and phenobarb and was still very anxious. Dr. Nelson placed critical care consult. Pt transferred to ICU for precedex drip. [facility] 09-16-2022 Emergency department Note [facility] here and report given. Pt states is not feeling much better than arrival. Alert and answers questions appropriately. Restless in bed and has monitor cords and oxygen off-pulse ox 95% on room air. Scooted self to end of bed and walked with assist to EMS cot Salina Ahuja RN 09/16/22 0810 [facility] 09-16-2022 Emergency department Note [facility] here [...] with patient, patient willing to transport to [facility] via ambulance. Subha Mcallister RN 09/16/22 7423 Patient visibly sweating, restless, and with tremors, patient is a daily drinker; last drink at 6pm. CIWA scale performed, score of 11. notified. Subha Mcallister RN 09/16/22 5119 Patient satting 87% on room air consistently, notified; patient placed on 3L nasal cannula and satting 91%. Patient reports that he feels like his breathing is better than when he came in prior to RN applying oxygen. Subha Mcallister RN 09/16/22 0246 Emergency Department Encounter [facility] ED Patient: El Smith : 1980 Date of Evaluation: 09/16/2022 ED Provider: Prince Alfaro DO Chief Complaint Chief Complaint Patient presents with Chest Pain Shortness of Breath Chest pain started 09/15 in AM with accompanied shortness of breath; patient took naproxen one hour prior to arrival; pain starts in the center of the chest and radiates around right breast [employer]AND [employer] El Smith is a 41 y.o. male who presents to the emergency department complaining of chest pain and shortness of breath. Patient reports he has had chest pain and shortness of breath throughout the day today. Pain is in the center of his chest and radiates to the right side. Has history of AL in the past and states this feels [...] left eye 09/20/2018 Coronary artery disease involving [place] coronary artery of [place] heart without angina pectoris 10/02/2021 Degenerative disc disease, lumbar Depression Discogenic syndrome, 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 Drug abuse ([facility]) ([facility]) Gastroenteritis 11/23/2018 Last Assessment & Plan: Predominantly vomiting; ?food poisoning vs viral gastroenteritis IV hydration PRN antiemetics Hyperlipidemia Hypertension Iritis of left eye 09/20/2018 AL (myocardial infarction) ([facility]) ([facility]) Opioid dependence, uncomplicated ([facility]) 10/27/2021 Presence of stent in right coronary [...] 405 ms QTC Interval 499 ms P [place] 29 degrees QRS [place] 19 degrees T Wave [place] 49 degrees PA Interval 132 ms Radiographs: XR chest 1 [...] 1:30 AM EDT Procedures/EKG: EKG Interpreted in [employer] software by myself SCREENINGS EMERGENCY DEPARTMENT COURSE [...] feel he requires admission. Plan admit to [place]. Patient was treated with Rocephin and doxycycline. [...] well.; EKG completed and handed to physician. nursery nurse and continuous pulse oximetry placed on patient. Vital signs are stable, call light in reach. Family is bedside. documented in this encounter [facility] 09-16-2022 Emergency department Note Report called to Di on 2E. Mother contacted and updated on bed status and transportation status. Patient provided with pop and pudding, assisted with repositioning. Call light in reach. Seizure precautions remain in place. Patient denies further needs at this time. Subha Mcallister RN 09/16/22 0648 [facility] 09-16-2022 Emergency department Note After RN discussion with patient, patient willing to transport to [facility] via ambulance. Subha Mcallister RN 09/16/22 0317 [facility] 09-16-2022 Emergency department Note Patient visibly sweating, restless, and with tremors, patient is a daily drinker; last drink at 6pm. CIWA scale performed, score of 11. notified. Subha Mcallister RN 09/16/22 0311 [facility] 09-16-2022 Emergency department Note Patient satting 87% on room air consistently, notified; patient placed on 3L nasal cannula and satting 91%. Patient reports that he feels like his breathing is better than when he came in prior to RN applying oxygen. Subha Mcallister RN 09/16/22 0246 T [facility] 09-16-2022 Emergency department Triage note Patient ambulatory [...] well.; EKG completed and handed to physician. nursery nurse and continuous pulse oximetry placed on patient. Vital signs are stable, call light in reach. Family is bedside. 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 male who presents to the emergency department complaining of chest pain and shortness of breath. Patient reports he has had chest pain and shortness of breath throughout the day today. Pain is in the center of his chest and radiates to the right side. 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) ([facility]) Gastroenteritis 11/23/2018 Last Assessment & Plan: Predominantly vomiting; ?food poisoning vs viral gastroenteritis IV hydration PRN antiemetics Hyperlipidemia Hypertension Iritis of left eye 09/20/2018 AL (myocardial infarction) ([facility]) ([facility]) Opioid dependence, uncomplicated ([facility]) 10/27/2021 Presence of stent in right coronary [...] 405 ms QTC Interval 499 ms P [place] 29 degrees QRS [place] 19 degrees T Wave [place] 49 degrees PA Interval 132 ms Radiographs: XR chest 1 [...] 1:30 AM EDT Procedures/EKG: EKG Interpreted in [employer] software by myself SCREENINGS EMERGENCY DEPARTMENT COURSE [...] feel he requires admission. Plan admit to [place]. Patient was treated with Rocephin and doxycycline. [...] Solutions Prince Alfaro DO 09/16/22 0334 T [facility] 08-26-2022 History of Present illness Narrative Pt arrived to from [facility] on cart at [...] 16, problematic by 26 when joining the [employer]. Reports heavily drinking after back pain occurred in 2015. Currently involved with [employer] [employer] [facility] [place] [facility] Denies hx of seizures, [...] pt off unit. documented in this encounter [facility] 08-26-2022 Emergency department Note [facility] room 412. Estefani Ponce RN 08/26/222023 [facility] 08-26-2022 Emergency department Note To [facility] room 412. Estefani Ponce RN 08/26/222023 Report [...] use today. Pt is active at the [facility] in [place]. He goes in for daily dosing. Pt states that he plans to maintain sobriety from the alcohol following his surgery on Tuesday. Pt is active at [facility] and can receive follow up treatment there. [...] he is scheduled next Tuesday at the [facility] for some sort of lumbar back fusion surgery and he wanted to try to stop drinking prior. He states he drinks 15 shots of whiskey daily he has been doing that for greater than 2 months, he had been sober for several months prior to that as he was at [facility] in September of last year. He also has a prior addiction history of OxyContin and Percocet pills he has been on a methadone program taking methadone 125 mg daily at [facility] for about the last 7 [...] left eye 09/20/2018 Coronary artery disease involving [place] coronary artery of [place] heart without angina pectoris 10/02/2021 Degenerative disc disease, lumbar Depression Discogenic syndrome, 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 Drug abuse ([facility]) ([facility]) Gastroenteritis 11/23/2018 Last Assessment & Plan: Predominantly vomiting; ?food poisoning vs viral gastroenteritis IV hydration PRN antiemetics Hyperlipidemia Hypertension Iritis of left eye 09/20/2018 AL (myocardial infarction) ([facility]) ([facility]) Opioid dependence, uncomplicated ([facility]) 10/27/2021 Presence of stent in right coronary [...] COMPLETE URINALYSIS - Abnormal Color, Urine Light Mcintosh (*) Clarity, Urine Clear pH, Urine 6.5 [...] Culture. Procedure Abnormality Status --------- ------ Complete Urinalysis[[id number]] Abnormal Final result Please view results for [...] of cardiac issues and apparently had an AL stenting placed over a year ago no [...] having back surgery on Tuesday at the [facility]. Patients last drink was at 21\00 last night. Patients last Percocet was two days ago. Patient is also on methadone. V/S obtained, call light within reach. nursery nurse applied. documented in this encounter [facility] 08-26-2022 Emergency department Note Report to [facility]. Estefani Ponce RN 08/26/222005 [facility] 08-26-2022 Emergency department Note Patient given a dinner tray and a mug of water. Patient sitting up in bed, eating. Sera Larose RN 08/26/22 1551 [facility] 08-26-2022 Emergency department Note Patient resting in bed. Warm blankets offered. Call light within reach. Deborah Thomson RN 08/26/22 1450 [facility] 08-26-2022 Emergency department Note ACC at bedside [...] use today. Pt is active at the [facility] in [place]. He goes in for daily dosing. Pt states that he plans to maintain sobriety from the alcohol following his surgery on Tuesday. Pt is active at [facility] and can receive follow up treatment there. CIWA and COWS assessment completed. Silvia Steward RN 08/26/22 1138 Silvia Steward RN 08/26/22 1142 [facility] 08-26-2022 Note NOTE: This result is for medical treatment only. Analysis performed using non-forensic procedures. [facility] 08-26-2022 Emergency department Triage note Patient to room 3 with c/o alcohol withdrawal due to having back surgery on Tuesday at the [facility]. Patients last drink was at 21\00 last night. Patients last Percocet was two days ago. Patient is also on methadone. V/S obtained, call light within reach. nursery nurse applied. [facility] 08-26-2022 Physician Emergency department Note EMERGENCY DEPARTMENT [...] he is scheduled next Tuesday at the [facility] for some sort of lumbar back fusion surgery and he wanted to try to stop drinking prior. He states he drinks 15 shots of whiskey daily he has been doing that for greater than 2 months, he had been sober for several months prior to that as he was at [facility] in September of last year. He also has a prior addiction history of OxyContin and Percocet pills he has been on a methadone program taking methadone 125 mg daily at [facility] for about the last 7 [...] left eye 09/20/2018 Coronary artery disease involving [place] coronary artery of [place] heart without angina pectoris 10/02/2021 Degenerative disc disease, lumbar Depression Discogenic syndrome, 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 Drug abuse ([facility]) ([facility]) Gastroenteritis 11/23/2018 Last Assessment & Plan: Predominantly vomiting; ?food poisoning vs viral gastroenteritis IV hydration PRN antiemetics Hyperlipidemia Hypertension Iritis of left eye 09/20/2018 AL (myocardial infarction) ([facility]) ([facility]) Opioid dependence, uncomplicated ([facility]) 10/27/2021 Presence of stent in right coronary [...] COMPLETE URINALYSIS - Abnormal Color, Urine Light Mcintosh (*) Clarity, Urine Clear pH, Urine 6.5 [...] Culture. Procedure Abnormality Status --------- ------ Complete Urinalysis[[id number]] Abnormal Final result Please view results for [...] of cardiac issues and apparently had an AL stenting placed over a year ago no [...] Emergency Medicine Provider Basil Mariano MD 08/26/22 4727 [facility] 08-06-2022 Emergency department Note Patient called RN [...] Physician notified. Subha Mcallister RN 08/06/22 0150 [facility] 08-06-2022 Emergency department Note Patient called RN [...] took naproxen last at 1800 but per [facility] records is also on methadone. Pt is A&Ox3, respirations even and unlabored, skin warm and dry. Pt moaning, twitching and erratic during triage, keeping eyes closed until asked by physician to open his eyes. Pt able to follow commands by physician to move all extremities. Pt denies incontinence of bowel or bladder. Emergency Department Encounter [facility] ED Patient: El Smith : 1980 [...] flexion [intact bilaterally] Wrist extension [intact bilaterally] Die Engraving Supervisor strength [intact bilaterally] Finger abduction [intact bilaterally] [...] MD 08/06/22 0158 documented in this encounter [facility] 08-06-2022 Emergency department Note All labs resulted [...] 0146 Melani Fraire RN 08/06/22 0149 T [facility] 08-06-2022 Emergency department Note Pt could be heard from hallway speaking loudly and swearing, pt seems to be speaking with his visitor. Pt and visitor had already been made aware when labs were drawn that the physician would be back to speak with them when lab results are completed. Melani Fraire RN 08/06/22 0115 T [facility] 08-06-2022 Emergency department Note Attempt x 4 for IV access unsuccessful; 2 attempts by Subha RN to right a/c area and left a/c, additional 2 by Shaye ED medic to right forearm and right hand. Melani Fraire RN 08/06/22 0041 Melani Fraire RN 08/06/22 0043 Melani Fraire RN 08/06/22 0044 T [facility] 08-06-2022 Emergency department Triage note Pt ambulatory [...] took naproxen last at 1800 but per [facility] records is also on methadone. Pt is A&Ox3, respirations even and unlabored, skin warm and dry. Pt moaning, twitching and erratic during triage, keeping eyes closed until asked by physician to open his eyes. Pt able to follow commands by physician to move all extremities. Pt denies incontinence of bowel or bladder. [facility] 08-06-2022 Physician Emergency department Note Emergency Department Encounter [facility] ED Patient: El Smith : 1980 [...] flexion [intact bilaterally] Wrist extension [intact bilaterally] Die Engraving Supervisor strength [intact bilaterally] Finger abduction [intact bilaterally] [...] for clarification. Feliciano Leos MD Acute Care [facility] Feliciano Leos MD 08/06/22 0158 [facility] [employer] Work Phone: 07-28-2022 Emergency department Note Discharge instructions, follow up care, and pain management discussed with patient. All questions answered, there are no further questions at this time. IV removed, catheter intact, site covered with dry dressing. Patient tolerated well. RN reviewed follow up care with apartment locator and PCP. Patient ambulated off the unit independently at discharge. Subha Mcallister RN 07/28/22 7940 [facility] 07-28-2022 Emergency department Note Discharge instructions, follow up care, and pain management discussed with patient. All questions answered, there are no further questions at this time. IV removed, catheter intact, site covered with dry dressing. Patient tolerated well. RN reviewed follow up care with apartment locator and PCP. Patient ambulated off the unit independently at discharge. Subha Mcallister RN 07/28/22 1530 ASAM assessment has been completed by addiction care transitions manager. Pt states that he has been drinking [...] years, following a back injury in the [facility]. In addition to drinking he uses THC daily as well as Methadone. Pt is active at the [facility] in [place] and takes Methadone 125mg a day. He [...] alcohol that he would reach out to [facility] for those services. Pt has a history of Heroin use but states that he has not used Heroin for the past 5 years. Pt is currently unemployed, mother states that she is in the process of getting an advocate to file for disability, she denies any assistance and states that she has all resources needed. Silvia Steward RN 07/28/22 2236 EMERGENCY DEPARTMENT ENCOUNTER Pt Name: El Smith [...] left eye 09/20/2018 Coronary artery disease involving [place] coronary artery of [place] heart without angina pectoris 10/02/2021 Degenerative disc disease, lumbar Depression Discogenic syndrome, 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 Gastroenteritis 11/23/2018 Last Assessment & Plan: Predominantly vomiting; ?food poisoning vs viral gastroenteritis IV hydration PRN antiemetics Hyperlipidemia Hypertension Iritis of left eye 09/20/2018 AL (myocardial infarction) ([facility]) ([facility]) Opioid dependence, uncomplicated ([facility]) 10/27/2021 Presence of stent in right coronary [...] 10:40:05 PM PATIENT REFERRED TO: Kay Kerr [address] [place] [id number] As needed Erlin Chambers MD [address] [facility] [address] [facility] [phone] Schedule an appointment as soon as possible [...] handed to physician. Patient was placed on event host and continuous pulse oximetry, call light in reach. documented in this encounter [facility] 07-28-2022 Hospital Discharge instructions Betsy Rain MD - 07/28/2022 10:40 PM EDT No evidence of heart damage or abnormal heart rhythm while here. Potassium was slightly low. Recommend following up with apartment locator for possible heart monitor if symptoms persist. The following attachments cannot be sent through Care Everywhere.Palpitations Discharge Instructions (Barbadian)documented in this encounter [facility] 07-28-2022 Emergency department Note ASAM assessment has been completed by addiction care transitions manager. Pt states that he has been drinking [...] years, following a back injury in the [facility]. In addition to drinking he uses THC daily as well as Methadone. Pt is active at the [facility] in [place] and takes Methadone 125mg a day. He [...] alcohol that he would reach out to [facility] for those services. Pt has a history of Heroin use but states that he has not used Heroin for the past 5 years. Pt is currently unemployed, mother states that she is in the process of getting an advocate to file for disability, she denies any assistance and states that she has all resources needed. Silvia Stewadr RN 07/28/225 [facility] 07-28-2022 Note Sinus rhythm Abnormal R-wave progression, early transition Probable inferior infarct, old no acute st elevation Compared to ECG 05/10/2022 12:17:59 Left ventricular hypertrophy no longer present Myocardial infarct finding still present Electronically Signed On 07-28-2022 22:02:43 EDT by Betsy Rain [facility] 07-28-2022 Note Sinus rhythm Abnormal R-wave progression, early transition Probable inferior infarct, old no acute st elevation Compared to ECG 05/10/2022 12:17:59 Left ventricular hypertrophy no longer present Myocardial infarct finding still present Electronically Signed On 07-28-2022 22:02:43 EDT by Betsy Rain [facility] 07-28-2022 Emergency department Triage note Patient ambulatory [...] handed to physician. Patient was placed on event host and continuous pulse oximetry, call light in reach. [facility] 07-28-2022 Physician Emergency department Note EMERGENCY DEPARTMENT [...] left eye 09/20/2018 Coronary artery disease involving [place] coronary artery of [place] heart without angina pectoris 10/02/2021 Degenerative disc disease, lumbar Depression Discogenic syndrome, 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 Gastroenteritis 11/23/2018 Last Assessment & Plan: Predominantly vomiting; ?food poisoning vs viral gastroenteritis IV hydration PRN antiemetics Hyperlipidemia Hypertension Iritis of left eye 09/20/2018 AL (myocardial infarction) (CMS/HCC) ([facility]) Opioid dependence, uncomplicated ([facility]) 10/27/2021 Presence of stent in right coronary [...] 10:40:05 PM PATIENT REFERRED TO: Kay Kerr [address] [place] [id number] As needed Erlin Chambers MD [address] [facility] [address] [facility] [phone] Schedule an appointment as soon as [...] Emergency Medicine Provider Betsy Rain MD 07/28/222241 [employer] Phone: 04-24-2022 Emergency department Note EMERGENCY DEPARTMENT [...] radiating down left lower extremity. He reports ebel-vms-oxzdfph sensation along the posterior left leg into the sole of the left foot. Nursing Notes were reviewed. REVIEW OF SYSTEMS Review of Systems Musculoskeletal: Positive for left hip pain PAST MEDICAL HISTORY Past Medical History: Diagnosis Date Alcohol abuse Anxiety Back pain with sciatica Chronic leg pain Corneal rust ring of left eye 09/20/2018 Coronary artery disease involving [place] coronary artery of [place] heart without angina pectoris 10/02/2021 Degenerative disc [...] medical plan. Rivka Toledo DO am the psychiatric aide of record. PROCEDURES: Unless otherwise noted below, none Procedures FINAL IMPRESSION 1. Left hip pain DISPOSITION Discharge 04/24/2022 05:07:18 PM PATIENT REFERRED TO: Kay Kerr [address] [place] [id number] Schedule an appointment as soon as possible for a visit [facility] ED [address] [facility] [phone] If symptoms worsen DISCHARGE [...] of his foot. documented in this encounter [facility] 04-24-2022 Emergency department Triage note Patient arrived [...] numbness on the bottom of his foot. [facility] 04-24-2022 Physician Emergency department Note EMERGENCY [...] radiating down left lower extremity. He reports ifwf-rpb-iizbtgc sensation along the posterior left leg into the sole of the left foot. Nursing Notes were reviewed. REVIEW OF SYSTEMS Review of Systems Musculoskeletal: Positive for left hip pain PAST MEDICAL HISTORY Past Medical History: Diagnosis Date Alcohol abuse Anxiety Back pain with sciatica Chronic leg pain Corneal rust ring of left eye 09/20/2018 Coronary artery disease involving [place] coronary artery of [place] heart without angina pectoris 10/02/2021 Degenerative disc [...] medical plan. Rivka Toledo DO am the psychiatric aide of record. PROCEDURES: Unless otherwise noted below, none Procedures FINAL IMPRESSION 1. Left hip pain DISPOSITION Discharge 04/24/2022 05:07:18 PM PATIENT REFERRED TO: Kay Kerr [address] [place] [id number] Schedule an appointment as soon as possible for a visit [facility] ED [address] [facility] [phone] If symptoms worsen DISCHARGE [...] Medicine Provider Kd Toledo DO 04/24/22 1711 [facility] 09-26-2021 Note Attestation signed by Fransisco [...] for Rx of drug and emotional issues [facility] CCU Discharge Summary Patient Name: El Smith [...] Brilinta 180mg once and emergently taken to laboratory chief. PCI intervention preformed by Dr. Chambers 09/24- [...] stable medically, decision made to transfer to [facility] for further care. Patient transferred in stable [...] Ambien - s/p versed and fentanyl in laboratory chief - Psych consulted, appreciate recommendations - continue Remeron 7.5mg qhs - evaluated for transfer to [facility] Discharge Medications: Medication List START taking these [...] for Agitation lidoca (more content not included)... [facility] 06-11-2022 History of Present illness Narrative ID weekend cross coverage note: Asked to review blood cultures. Blood cultures noted with staph hominis and staph epidermidis. Course discussed with primary team, patient remains afebrile, no leukocytosis. Blood cultures most likely represent contamination so will recommend to stop IV vancomycin. ID service will sign off, please call for any additional questions Kealyn Martines MD 0910am - CCU fellow at bedside rounding, aware patient is refusing wage and salary specialist, however patient is agreeable to PIV at this time. PIV inserted by RN, patient remains off telemetry. 11:30am - patient anxiety/restlessness increasing, ativan given at 10am per PRN orders as well as PRN haldol at 11:25am. CCU aware, resident at bedside. 12:20-12:45 pm - patient suddenly very agitated, cussing, yelling, attempting to leave unit, escorted back to room by HLU staff combat information center officer and bedside sitter. Patient demanding to leave hospital AMA as he is not in penitentiary and we cannot hold him here against his will. Patient does have medical hold (yellow slip) in chart. Protective services at bedside with two officers. Patient belongings in room closet collected by protective services and taken to security lockup - shirt, sweatpants, tennis shoes, cell phone, cell phone risk tech, soda can. 1636 pm - Report called to [facility] 5 RN - no questions, comments, or concerns from accepting RN at this time. 17:48pm -Patient transferred by [facility] transport services. Protective services at bedside during transfer handoff. [facility] to return to security to retrieve patient belongings prior to departure. Addiction Team Consult PROGRESS NOTE September 26, 2021Tuesday Assessment to monitor w/drawal from alcohol in context of following issues: AL with stent placement 2 days ago; Chronic [...] maintained 2 meters distance, and utilized hand erp project manager on entry and upon exiting the room [...] injection 100 mg 100 mg IntraVENous Q8H DARA Rasmussen CNP 100 mg at 09/25/21 1332 oxyCODONE-acetaminophen (PERCOCET) 5-325 MG per tablet 2 tablet 2 tablet Oral Q6H PRN Dina Ray APRN - MAILROOM ASSISTANT 2 tablet at 09/25/21 1429 enoxaparin (LOVENOX) [...] leg pain) Drug use: Yes Types: Marijuana ([place]) Comment: occasional use Recent Results (from the [...] eGFR >90.0 >60 mL/min EGFR IF NonAfrican British >90.0 >60 mL/min Calcium 9.5 8.4 - [...] # 1.5 1.0 - 4.3 10*3/uL Absolute Barber # 1.2 (H) 0.0 - 0.8 10*3/uL [...] # 1.2 1.0 - 4.3 10*3/uL Absolute Barber # 0.9 (H) 0.0 - 0.8 10*3/uL [...] eGFR >90.0 >60 mL/min EGFR IF NonAfrican British >90.0 >60 mL/min Calcium 9.1 8.4 - [...] Staphylococcus species DETECTED. Presumptive identification performed using TickTickTickets PCR methodology; confirmatory identification to follow. _ The GeenappArray BCID2 PCR Panel can detect the following [...] Urine 6.5 5.0 - 8.0 NA Specific [place], Urine >1.030 (A) 1.005 - 1.030 NA [...] NEGATIVE: No targets were detected by the BioSparrowe Upper Respiratory Pathogens PCR Panel. _ Expected [...] eGFR >90.0 >60 mL/min EGFR IF NonAfrican British >90.0 >60 mL/min Calcium 8.6 8.4 - [...] # 2.4 1.0 - 4.3 10*3/uL Absolute Barber # 1.0 (H) 0.0 - 0.8 10*3/uL [...] eGFR >90.0 >60 mL/min EGFR IF NonAfrican British >90.0 >60 mL/min Calcium 8.6 8.4 - [...] Plan Medications as ordered. Please contact psychiatry electronics engineering technician to review 09/26 and 09/27, I [...] convert to PO if able) None Anticipated Prentiss Medications (ICU initiated) or Dose Changes and Indication Yes, indication GDMT Permanently Discontinued Home Medications and Reason for medication contraindication No Conrad Catheter (please remove if able) No Central Line (please remove if able) No Transfer Discussed with: Dr. Macdonald, [facility] Hospitalist If additional questions for CCU team within 24 hours of ICU transfer, page [phone] for clarifications. Nutrition rescreen completed. Chart reviewed. Patient to be monitored and followed by the diet engineering technician parking. MAXIM Bolton Addiction Team Consult PROGRESS NOTE September 25, 2021Tuesday Assessment to monitor w/drawal from alcohol complicated by AL with stent placement(september 24) & chronic pain due to disc disease General: When seen, drowsy but quite restless/agitated; moving around in bed; seemingly in discomfort Mom at bedside Sitter Present Mom reports that he was seen several weeks ago at the [facility]; that he was advised about recurrence of bulging disc; said he did not want to go thru surgery again and began binge drinking because of the pain. She states that he resorts to getting percocet or vicodin illicitly, that the [facility]'s pain management team has not been helpful. [...] to wear heart monitor, ccu team aware [facility] CCU PROGRESS NOTE Patient Name: El Smith : 1980 Reason for Admission: STEMI History of Present Illness: El Smith is a 40 y.o. male with PMHx HTN, tobacco use - 2 PPD, anxiety, alcohol use, THC use and chronic back pain that was admitted to [facility] on 09/23/2021 for sudden onset chest pain. In the ED, initial troponin negative. Chest x-ray unremarkable. EKG with ST elevation in II, III aVF. Received ASA 342mg PO once, heparin 5000 once and Brilinta 180mg once and emergently taken to laboratory chief. PCI intervention preformed by Dr. Chambers 09/24- [...] leg pain) Drug use: Yes Types: Marijuana ([place]) Comment: occasional use Sexual activity: Not Currently [...] Friends and Family: Not on file Attends [employer]: Not on file Active Member of [...] ABGs: No results found for: PHART, PO2ART, CQR7NLB INR: No results for input(s): INR in [...] Ambien - s/p versed and fentanyl in laboratory chief - Psych consulted, appreciate recommendations - started Remeron 7.5mg qhs - Goals of Care: FULL CODE - Anticoagulation: SCDs Ambulate - GI Prophylaxis: Not Indicated - Diet: Cardiac - BMI Classification: Body mass index is 29.42 kg/m . Overweight (BMI 25-29.9) - Disposition: Anticipate transfer to [facility] in next 24h pending consult recommendations Associated [...] findings and my assessment and plan. Uncomplicated AL. Complicated patient with psych and drug abuse [...] scores and concern for safety of pt. Tape Recorder Repairer at bedside. New CIWA order parameters placed. [facility] Cardiac Catheterization Laboratory Post-Procedure Note Patient Name: [...] Cardiac Rehab. Physician Signature: Loc Mckinney MD Cork Wirer -PGY IV documented in this encounter [facility] [employer] Phone: 09-26-2021 Hospital Discharge instructions Prerna Contreras RN - 09/26/2021 3:06 PM EDT Continuity of Care Form Patient Name: El Smith : 1980 Admit date: 09/23/2021 Discharge date: Code Status Order: Full Code Advance Directives: Admitting Physician: Fransisco Cedillo MD PCP: Teddy Sanford MD Discharging Nurse: Discharging Hospital Unit/Room#: [id number] Discharging Unit Phone Number: Emergency Contact: Extended Emergency Contact Information Primary Emergency Contact: Chhaya Maurer [facility] Relation: Parent Past Surgical History: Past Surgical History: Procedure Laterality Date ARM SURGERY metal rods in adam upper extremities COLONOSCOPY FRACTURE SURGERY Immunization History: Immunization History Administered Date(s) Administered Anthrax (BioThrax) 10/27/2007 Hepatitis A/Hepatitis B (Twinrix) 03/15/2007 Influenza Virus Vaccine 03/14/2007, 02/07/2008, 02/17/2008 Turkmen Encephalitis Vaccine Sq 05/11/2007 Meningococcal MCV4P (Menactra) 08/18/2006 Polio IPV (IPOL) 09/15/2006 Tdap (Boostrix, Adacel) 09/19/2018 Typhoid Vi capsular polysaccharide (Typhim ) 03/15/2007 Vaccinia - Smallpox ([id number]) 03/21/2007 Yellow Fever (YF-Vax) 09/15/2006 Active Problems: [...] needs assistance getting to restroom Feeding Independent Emblem Maker Independent Med Delivery whole Wound Care Documentation [...] sweatpants, tennis shoes, cell phone, cell phone risk tech, soda can RN SIGNATURE: CASE MANAGEMENT/SOCIAL WORK SECTION Inpatient Status Date: Readmission Risk Assessment Score: Readmission Risk Risk of Unplanned Readmission: 16 Discharging to Facility/ Agency Name: Address: Phone: Fax: Dialysis Facility (if applicable) Name: Address: Dialysis Schedule: Phone: Fax: [employer] [facility]/Pulmonary Function Technician signature: {Esignature:[id number]} PHYSICIAN SECTION Prognosis: Fair Condition at Discharge: Stable Rehab Potential (if transferring to Rehab): Good Recommended Labs or Other Treatments After Discharge: None Physician Certification: I certify the above information and transfer of El Smith is necessary for the continuing treatment of the diagnosis listed and that he requires transfer to [facility] for less than 30 days. Update Admission H&P: No change in H&P PHYSICIAN SIGNATURE: Kellee Perdomo, SCAGLIOLA MECHANIC - MAILROOM ASSISTANT - 09/24/2021 If you have questions, issues, or concerns please call or text the Ischemic Heart Disease coordinator Advance Practice Nurse, Kellee Perdomo, cell phone # [phone] Call your doctor with any medication questions or if you notice any side effects from your medications. If you are unable to fill your medications, please call your Security And Compliance Project Manager immediately. The office number is located with [...] for 24 hours. GIVE PCI PACKET (FROM TAX COMMISSIONER) TO PATIENT Give Coronary Artery Discharge Booklet [...] Cardiac Rehab The Cardiac Rehab team at [facility] consists of highly skilled exercise physiologists, [...] your heart. We have facilities at both [facility] and [facility]. At both locations we have street level parking which is free and our sites are easily accessible. For both rib lakees you can contact us at . We invite you to call us with your questions or to get started in our program. If you have other questions or concerns be sure to ask your provider during your follow up visit. We look forward to seeing you there. Our locations: [facility] [address] [facility] Ground Floor [id number] Ground floor documented in this encounter [facility] [...] cannot be sent through Care Everywhere.Abdominal Pain (Barbadian)Cannabinoid Hyperemesis Syndrome (Barbadian)documented in this encounter [facility] Work Phone: 12-03-2020 Note [facility] Medical Records Department [address] [place] [address] Discharge Summary 12/03/20 1213 MR#: [id number] Acct: [id number] Name: EL SMITH Rep #: [id number] : 1980 40 From: Lorri Ya MD PCP: Care Physician,No Primary Status:ADM IN Location: [facility] [id number] Providers Date of Admission: 11/30/20 Primary Care [...] her RLE. He had done MRI at [facility] but didnt know the results of [...] outpatient basis. Of note, MRI done at [facility] in June 2020 (07/04/2020) showed circumferential [...] Document 12/01/20 13:14 LUR[facility] (Rec: 12/01/20 13:14 [facility] [id number]) Nutrition Malnutrition Evidence of Malnutrition Exists Yes Malnutrition (moderate): Social/Behavioral/ Environmental Evidenced By Suboptimal Energy Intake ( Moderate),Weight Loss (Severe) Intake Problem Inadequate Oral Intake Etiology related to alcohol detox and nausea Signs/Symptoms as evidenced by nonexistant appetite x 2 days cryptanalyst, refusal of breakfast and lunch today and [...] 101 or High (more content not included)... [facility] 11-29-2020 Hospital Discharge instructions Naila Orozco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 engineering technician provider immediately after first dose, may [...] 0900 0922 (Given - Provid er: Lalito Saarbia RN) LORazepam (Ativan) injection 1 mg (COMPLETED) [...] Chan RN) 0922 (Given - Provider: Lalito Sarabia RN) PHENobarbital (Luminal) injection 100 mg 100 mg, IntraVENous, Every 4 hours, First dose on Tue05/27/24 at 1700, HOLD if sedated, unsteady gait, SBP < 100, DBP < 60, HR < 50 Administer no faster than 1 mg/kg/minute, to a max of 60 mg/min in adults. 1640 (Given - Provider: Michelle Chan RN)2149 (Given - Provider: Patt Snowden [...] Patt Snowden RN)2156 (See Alternative - Provider: Ptat Snowden RN) 133 (See Alternative - Provider: [...] sedation for opioid reversal - MUST notify electronics engineering technician provider immediately after first dose, may [...] 0843 (Given - Provider: Jamison Gonzalez, DESIREE)1021 ([facility] Hold - Provider: Automatic Transfer Provider - Reason: Patient not available)1214 ([facility] Unhold - Provider: Automatic Transfer Provider) 0853 [...] DESIREE)0949 (Stopped - Provider: Jamison Gonzalez, DESIREE)1021 ([facility] Hold - Provider: Automatic Transfer Provider - Reason: Patient not available)1214 ([facility] Unhold - Provider: Automatic Transfer Provider) 1222 [...] 0843 (Given - Provider: Jamison Gonzalez, RN)1021 ([facility] Hold - Provider: Automatic Transfer Provider - Reason: Patient not available)1214 ([facility] Unhold - Provider: Automatic Transfer Provider)1304 (Given [...] provider if no further options ordered. 1021 ([facility] Hold - Provider: Automatic Transfer Provider - Reason: Patient not available)1214 ([facility] Unhold - Provider: Automatic Transfer Provider) acetaminophen (Tylenol) suppository 650 mg(Linked Group 1) 650 mg, Rectal, Every 6 hours PRN, mild pain (1-3), fever, Starting on 12/01/24 at 1051, Give PA if unable to administer by mouth or feeding tube. If inadequate response within 60 minutes, proceed to next-line agent for same PRN reason or contact provider if no further options ordered. 1021 ([facility] Hold - Provider: Automatic Transfer Provider - Reason: Patient not available)1214 ([facility] Unhold - Provider: Automatic Transfer Provider) acetaminophen (Tylenol) tablet 650 mg(Linked Group 1) 650 mg, Oral, Every 6 hours PRN, mild pain (1-3), fever, headaches, Starting on 12/01/24 at 1051, If inadequate response within 60 minutes, proceed to next-line agent for same PRN reason or contact provider if no further options ordered. 1021 ([facility] Hold - Provider: Automatic Transfer Provider - Reason: Patient not available)1214 ([facility] Unhold - Provider: Automatic Transfer Provider) LORazepam [...] Transfer Provider - Reason: Patient not available)1214 ([facility] Unhold - Provider: Automatic Transfer Provider) LORazepam (Ativan) injection 1 mg(Linked Group 3) 1 mg, IntraMUSCular, Every 6 hours PRN, withdrawal, alcohol withdrawal for CIWA >10, Starting on Tue12/04/24 at 1154, Please notify electronics engineering technician attending if this has to be [...] Henriquez RN) 06 (See Alternative - Provider: Bukre Henriquez RN)0843 (See Alternative - Provider: Jamison [...] (See Alternative - Provider: Jamison Gonzalez RN)1021 ([facility] Hold - Provider: Automatic Transfer Provider - Reason: Patient not available)1214 ([facility] Unhold - Provider: Automatic Transfer Provider) naloxone (Narcan) injection 0.4 mg 0.4 mg, IntraVENous, Every 5 min PRN, opioid reversal, respiratory depression, Starting on 12/01/24 at 1339, +++ For RR <10, pinpoint pupils, over sedation for opioid reversal - MUST notify electronics engineering technician provider immediately after first dose, may give IM or SQ if no IV access +++ 1021 ([facility] Hold - Provider: Automatic Transfer Provider - Reason: Patient not available)1214 ([facility] Unhold - Provider: Automatic Transfer Provider) sodium [...] Transfer Provider - Reason: Patient not available)1214 ([facility] Unhold - Provider: Automatic Transfer Provider) sodium chloride 0.9% (NS) flush 10 mL 10 mL, IntraVENous, PRN, line care, Starting on 12/02/24 at 1327, After every IV line use 1021 (J[facility] Hold - Provider: Automatic Transfer Provider - Reason: Patient not available)1214 ([facility] Unhold - Provider: Automatic Transfer Provider) Linked [...] fever, Starting on 12/01/24 at 1051, Give PA if unable to administer by mouth or [...] Starting on Tue12/04/24 at 1154, Please notify electronics engineering technician attending if this has to be utilized for a seizure. For IV doses dilute dose with 1ml NS. Care Teams (unrecognized sec tion and content) Sales Donor Recruitment Representative Relationship Specialty Start Date End Date Teddy Sanford MD [address] [place] [id number] PCP - General Family Medicine 11/27/18 Sales Donor Recruitment Representative Relationship Specialty Start Date End Date Teddy Sanford MD [address] [place] [address] PCP - General Family Medicine 11/27/18 Sales Donor Recruitment Representative Relationship Specialty Start Date End Date Teddy Sanford MD [address] [place] [address] PCP - General Family Medicine 11/27/18 Sales Donor Recruitment Representative Relationship Specialty Start [place] [address] PCP - General 10/02/21 Sales Donor Recruitment Representative Relationship Specialty Start Date End Date Kay Kerr [address] [place] [address] PCP - General 10/02/21 Sales Donor Recruitment Representative Relationship Specialty Start Date End Date Wear, [place] [address] PCP - General 10/02/21 Sales Donor Recruitment Representative Relationship Specialty Start Date End Date [place]ear, [place] [address] PCP - General 10/02/21 Sales Donor Recruitment Representative Relationship Specialty Start Date End Date Wear, [place] [address] PCP - General 10/02/21 Sales Donor Recruitment Representative Relationship Specialty Start Date End Date Wear, [place] [address] PCP - General 10/02/21 Sales Donor Recruitment Representative Relationship Specialty Start Date End Date Wear, [place] [address] PCP - General 10/02/21 Sales Donor Recruitment Representative Relationship Specialty Start Date End Date Wear, [place] [address] PCP - General 10/02/21 Sales Donor Recruitment Representative Relationship Specialty Start Date End Date Wear, Kay [address] [place] [address] PCP - General 10/02/21 Sales Donor Recruitment Representative Relationship Specialty Start Date End Date Wear, Kay [address] [place] [address]29 PCP - General 10/02/21 Sales Donor Recruitment Representative Relationship Specialty Start Date End Date Wear, Kay [address] [place] 135729 PCP - General 10/02/21 Sales Donor Recruitment Representative Relationship Specialty Start Date End Date Wear, Aky [address] [place], [place] 8[address]779 PCP - General 10/02/21 Sales Donor Recruitment Representative Relationship Specialty Start Date End Date Wear, Kay [address] [place], [place] 953439 PCP - General 10/02/21 Sales Donor Recruitment Representative Relationship Specialty Start Date End Date Wear, Kay [address] [place], [place] 935809 PCP - General 10/02/21 Sales Donor Recruitment Representative Relationship Specialty Start Date End Date Wear, Kay [address] [place], [place] 297589 PCP - General 10/02/21 Sales Donor Recruitment Representative Relationship Specialty Start Date End Date Wear, Kay [address] [place], [place] [address]479 PCP - General 10/02/21 Sales Donor Recruitment Representative Relationship Specialty Start Date End Date Wear, Kay [address] [place], [place] 118[address] PCP - General 10/02/21 Sales Donor Recruitment Representative Relationship Specialty Start Date End Date Wear, Kay [address] [place], [place] [address] PCP - General 10/02/21 Sales Donor Recruitment Representative Relationship Specialty Start Date End Date Wear, Kay [address] [place], [place] [address] PCP - General 10/02/21 Sales Donor Recruitment Representative Relationship Specialty Start Date End Date Wear, Kay [address] [place] [address] PCP - General 10/02/21 Sales Donor Recruitment Representative Relationship Specialty Start Date End Date Wear, Kay [address] [place] [address] PCP - General 10/02/21 Sales Donor Recruitment Representative Relationship Specialty Start Date End Date Wear, Kay [address] [place] [address] PCP - General 10/02/21 Sales Donor Recruitment Representative Relationship Specialty Start Date End Date Wear, Kay [address] [place] [address] PCP - General 10/02/21 Sales Donor Recruitment Representative Relationship Specialty Start Date End Date Wear, Kay [address] [place] [address] PCP - General 10/02/21 Sales Donor Recruitment Representative Relationship Specialty Start Date End Date Wear, Kay [address] [place] [address] PCP - General 10/02/21 Sales Donor Recruitment Representative Relationship Specialty Start Date End Date Wear, Kay [address] [place] [address] PCP - General 10/02/21 Sales Donor Recruitment Representative Relationship Specialty Start Date End Date Wear, Kay [address] [place] [address] PCP - General 10/02/21 Sales Donor Recruitment Representative Relationship Specialty Start Date End Date Wear, Kay [address] [place], [place] [address] PCP - General 10/02/21 Sales Donor Recruitment Representative Relationship Specialty Start Date End Date Wear, Kay [address] [place] 609339 PCP - General 10/02/21 Sales Donor Recruitment Representative Relationship Specialty Start Date End Date Wear, Kay [address] [place] 560609 PCP - General 10/02/21 Sales Donor Recruitment Representative Relationship Specialty Start Date End Date Wear, Kay [address] [place] 86[address]49 PCP - General 10/02/21 Sales Donor Recruitment Representative Relationship Specialty Start Date End Date Wear, Kay [address] [place] [address] PCP - General 10/02/21 Sales Donor Recruitment Representative Relationship Specialty Start Date End Date Wear, Kay [address] [place] [address]99 PCP - General 10/02/21 Sales Donor Recruitment Representative Relationship Specialty Start Date End Date Wear, Kay [address] [place] [address] PCP - General 10/02/21 Sales Donor Recruitment Representative Relationship Specialty Start Date End Date Wear, Kay [address] [place], [place] [address] PCP - General 10/02/21 Sales Donor Recruitment Representative Relationship Specialty Start Date End Date Wear, Kay [address] [place], [place] [address] PCP - General 10/02/21 Sales Donor Recruitment Representative Relationship Specialty Start Date End Date Wear, Kay [address] [place], [place] [address]709 PCP - General 10/02/21 Sales Donor Recruitment Representative Relationship Specialty Start Date End Date Wear, Kay [address] [place], [place] [address]16[address] PCP - General 10/02/21 Sales Donor Recruitment Representative Relationship Specialty Start Date End Date Wear, Kay [address] [place], [place] [address]199 PCP - General 10/02/21 Sales Donor Recruitment Representative Relationship Specialty Start Date End Date Wear, Kay [address] [place], [place] [address] PCP - General 10/02/21 Sales Donor Recruitment Representative Relationship Specialty Start Date End Date Wear, Kay [address] [place], [place] 417179 PCP - General 10/02/21 Sales Donor Recruitment Representative Relationship Specialty Start Date End Date Wear, Kay [address] [place], [place] [address]23379 PCP - General 10/02/21 Sales Donor Recruitment Representative Relationship Specialty Start Date End Date Wear, Kay [address] [place], [place] [address] PCP - General 10/02/21 Sales Donor Recruitment Representative Relationship Specialty Start Date End Date Wear, Kay [address] [place], [place] [address] PCP - General 10/02/21 Sales Donor Recruitment Representative Relationship Specialty Start Date End Date Wear, Kay [address] [place] [address] PCP - General 10/02/21 Sales Donor Recruitment Representative Relationship Specialty Start Date End Date WearKay [address] [place] [address]279 PCP - General 10/02/21 Sales Donor Recruitment Representative Relationship Specialty Start Date End Date Wear, Kay [address] [place] [address] PCP - General 10/02/21 Sales Donor Recruitment Representative Relationship Specialty Start Date End Date Wear, Kay [address] [place] 86[address]29 PCP - General 10/02/21 Sales Donor Recruitment Representative Relationship Specialty Start Date End Date Wear, Kay [address] [place] [address] PCP - General 10/02/21 Sales Donor Recruitment Representative Relationship Specialty Start Date End Date Wear, Kay [address] [place] [address]60449 PCP - General 10/02/21 Sales Donor Recruitment Representative Relationship Specialty Start Date End Date Wear, Kay [address] [place] [address] PCP - General 10/02/21 Sales Donor Recruitment Representative Relationship Specialty Start Date End Date Wear, Kay [address] [place] 57[address]79 PCP - General 10/02/21 Sales Donor Recruitment Representative Relationship Specialty Start Date End Date Wear, Kay [address] [place], [place] [address] PCP - General 10/02/21 Sales Donor Recruitment Representative Relationship Specialty Start Date End Date Kay Kerr [address] [facility] [place], [place] [address] PCP - General 10/02/21 Sales Donor Recruitment Representative Relationship Specialty Start Date End Date Kay Kerr MD [address] [place] [address] PCP - General Internal Medicine 01/06/24 Sales Donor Recruitment Representative Relationship Specialty Start Date End Date Kay Kerr MD [address] [place] [address] PCP - General Internal Medicine 01/06/24 Sales Donor Recruitment Representative Relationship Specialty Start Date End Date System, [facility] [address] [place] [facility] [place] [address] PCP - General 05/28/24 Sales Donor Recruitment Representative Relationship Specialty Start Date End Date System, [facility] [address] [place] [address] PCP - General 05/28/24 Sales Donor Recruitment Representative Relationship Specialty Start Date End Date System, [facility] [address] [place] [address] PCP - General 05/28/24 Sales Donor Recruitment Representative Relationship Specialty Start Date End Date System, [facility] [address] [place] [address] PCP - General 05/28/24 Sales Donor Recruitment Representative Relationship Specialty Start Date End Date System, [facility] [address] [place] [address] PCP - General 05/28/24 Sales Donor Recruitment Representative Relationship Specialty Start Date End Date System, [facility] [address] [place] [address] PCP - General 05/28/24 Sales Donor Recruitment Representative Relationship Specialty Start Date End Date System, [facility] [address] [place] [address] PCP - General 05/28/24 Sales Donor Recruitment Representative Relationship Specialty Start Date End Date System, [address] [place] [address] PCP - General 05/28/24 Sales Donor Recruitment Representative Relationship Specialty Start Date End Date System, [place] [address] [facility] [place] [address] PCP - General 05/28/24 Sales Donor Recruitment Representative Relationship Specialty Start Date End Date System, [address] [place] [address] PCP - General 05/28/24 Sales Donor Recruitment Representative Relationship Specialty Start Date End Date System, [address] [place] [address] PCP - General 05/28/24 Sales Donor Recruitment Representative Relationship Specialty Start Date End Date System, [address] [place] [address] PCP - General 05/28/24 Sales Donor Recruitment Representative Relationship Specialty Start Date End Date System, [address] [address] PCP - General 05/28/24 Sales Donor Recruitment Representative Relationship Specialty Start Date End Date System, [address] [place] [address] PCP - General 05/28/24 Source Comments (unrecognize d section and content) In the event this informatio n is protected by the Federal Confidentiality of Alcohol and Drug Abuse Patient Records regulations: The Federal rules restrict any use of the information to criminally investigate or prosecute any alcohol or drug abuse patient.[facility] the event this information is protected by the Federal Confidentiality of Alcohol and Drug Abuse Patient Records regulations: The Federal rules restrict any use of the information to criminally investigate or prosecute any alcohol or drug abuse patient.[facility] FOR RECORDS PERTAINING TO PATIENTS WHO [...] BE BASED ON THE PRIMARY CLINICAL RECORDS. [facility]. provides no warranty or guarantee of the accuracy or completeness of information in this document.
[2024-12-30] MEDS: 0.9% Saline Lock 10 ML Syringe IV (16:45)
[2024-12-30] MEDS: hydrOXYzine PAM 25 MG Capsule 50 MG PO (18:37)
[2024-12-31 02:28] VITALS: BP 122/98; PULSE 113; RESP 18; TEMP 36.6; O2SAT 92
[2024-12-31] MEDS: hydrOXYzine PAM 25 MG Capsule 50 MG PO ×2 (05:02→23:24)
[2024-12-31 05:24] VITALS: BP 139/98; PULSE 115; RESP 17; TEMP 36.6; O2SAT 94
[2024-12-31 06:51] LABS: Magnesium 1.4 mg/dL (1.5-2.2)
[2024-12-31 06:55] VITALS: O2SAT 94
[2024-12-31 06:56] LABS: Anion Gap 12 (5-15); BUN 18 mg/dL (4-19); BUN/Creat Ratio 30.6 RATIO (10-20); Calcium,Total 8.2 mg/dL (7.6-11.0); Carbon Dioxide 29.2 mmol/L (21.0-32.0); Chloride 95 mmol/L (98-108); Estimated Creatinine Clearance 172.54 ml/min (50-250); Glucose 107 mg/dL (70-99); Potassium 2.7 mmol/L (3.3-5.1)
[2024-12-31 07:37] VITALS: BP 138/97; PULSE 109; RESP 16; TEMP 36.6; O2SAT 95
[2024-12-31] MEDS: Thiamine Hydrochloride 100 MG Tablet PO (07:46)
--- NOTE | 2024-12-31 08:32 | PCM.PN.HOSP ---
Reason for Visit Chief Complaint: Alcohol detox Subjective Subjective Patient is a 44-year-old gentleman with history of chronic alcohol dependence presented with desire to undergo detox Objective Data Objective Data Vital Signs: Vital Signs Temp Pulse Resp BP Pulse Ox O2 Del Method 97.9 F 109 H 16 138/97 H 95 Room Air 12/31/24 07:37 12/31/24 07:37 12/31/24 07:37 12/31/24 07:37 12/31/24 07:37 12/31/24 07:37 Oxygen Delivery Method Room Air Weight: 85.548 kg Body Mass Index (BMI) 27.0 Intake & Output: Intake and Output for Last 24 Hours 12/29/24 12/30/24 12/31/24 23:59 23:59 23:59 Intake Total 600 / 600 880 / 880 Balance 600 / 600 880 / 880 Lab / Micro Data 12/30/24 12:09 12/31/24 06:06 Labs: Laboratory Results - last 24 hr 12/30/24 12:09: WBC 8.3, RBC 5.15, Hgb 11.4 L, Hct 36.4 L, MCV 70.7 L, MCH 22.1 L, MCHC 31.3 L, RDW Std Deviation 58.0 H, RDW Coeff of Mehran 23.9 H, Plt Count 362, MPV 9.2, Immature Gran % (Auto) 0.700, Neut % (Auto) 63.4, Lymph % (Auto) 23.8, [place] % (Auto) 10.7 H, Eos % (Auto) 0.1, Baso % (Auto) 1.3 H, Absolute Neuts (auto) 5.2, Absolute Lymphs (auto) 1.97, Nucleated RBC % 0, Anisocytosis 1+, Sodium 143, Potassium 3.0 L, Chloride 97 L, Carbon Dioxide 27.1, Anion Gap 19 H, BUN 8, Creatinine 0.53 L, Estim Creat Clear Calc 185.56, Est GFR (MDRD) Non-Af 128, BUN/Creatinine Ratio 14.4, Glucose 110 H, Calcium 8.4, Total Bilirubin 0.36, AST 25, ALT 6, Alkaline Phosphatase 214 H, Total Protein 7.1, Albumin 3.3 L, Globulin 3.8, Albumin/Globulin Ratio 0.9, Lipase 60, Ethyl Alcohol 297.0 H 12/30/24 13:51: Urine Color Yellow, Urine Clarity Clear, Urine pH 8.0, Ur Specific [place] 1.010, Urine Protein 100 H, Urine Glucose (UA) Normal, Urine Ketones Negative, Urine Occult Blood 10 H, Urine Nitrite Negative, Urine Bilirubin Negative, Urine Urobilinogen 1 H, Ur Leukocyte Esterase Negative, Urine RBC 0-5 SEEN, Urine WBC 0 SEEN, Ur Squamous Epith Cells 0 SEEN, Urine Bacteria 0 SEEN, Urine Mucus 0 SEEN, Urine Opiates Screen NEGATIVE, U Buprenorphine Qual NEGATIVE, Ur Oxycodone Screen NEGATIVE, Urine Methadone Screen NEGATIVE, Urine Fentanyl Screen NEGATIVE, Ur Barbiturates Screen PRESUMPTIVE POSITIVE, Ur Phencyclidine Scrn NEGATIVE, Ur Amphetamines Screen NEGATIVE, U Benzodiazepines Scrn PRESUMPTIVE POSITIVE, Urine Cocaine Screen NEGATIVE, U Cannabinoids Screen PRESUMPTIVE POSITIVE 12/31/24 06:06: Sodium 136, Potassium 2.7 L*, Chloride 95 L, Carbon Dioxide 29.2, Anion Gap 12, BUN 18, Creatinine 0.57 L, Estim Creat Clear Calc 172.54, Est GFR (MDRD) Non-Af 125, BUN/Creatinine Ratio 30.6 H, Glucose 107 H, Calcium 8.2, Phosphorus 3.5, Magnesium 1.4 L Physical Exam Narrative GENERAL: cooperative HEENT: Atraumatic; normocephalic EYES; Anicteric, Normal Conjunctiva NECK; supple, normal thyroid, RESPIRATORY: Diminished to auscultation CARDIOVASCULAR: Regular S1 S2, GI: soft, normoactive bowel sounds, : No Renal angle tenderness; EXTREMITIES: No edema, no clubbing, MUSCULOSKELETAL: no muscle wasting NEURO: Awake; no lateralizing signs. SKIN: No Rash PSYCH; Flat affect Assessment & Plan Assessment/Plan (1) Desire for detoxification: PLAN: Plan Patient is a 44-year-old gentleman with history of chronic alcohol dependence presented with desire to undergo detox 1. Acute alcohol withdrawal - Patient has been admitted for treatment with phenobarb taper in addition to adjuvant medications including gabapentin, Bentyl, hydroxyzine and clonidine as needed for alcohol withdrawal symptoms. Patient was also placed on thiamine and folic acid. Consultation placed to [facility] counseling services 2. Hypokalemia -Corrected per protocol 3. History of gastric ulcer ? Patient is on PPI as well as Carafate plan is for patient to follow-up with his primary core drill operator helper on discharge 5. Anemia ? Secondary to chronic blood loss anemia from gastric ulcer monitoring H&H and transfuse if patient becomes symptomatic or hemoglobin falls below 7 4. Bipolar disorder ? Did continue patient's home meds?prazosin Seroquel and Zoloft 6. History of polysubstance dependence including opiates ? Patient is on buprenorphine?naloxone as well as acamprosate (hold on admission) 7. Coronary artery disease ? With previous stent placement patient antiplatelet therapy on hold given recent gastric ulcer 8. Tobacco dependence ? Counseled on cessation, offered nicotine patch for tobacco cravings 9. DVT prophylaxis low risk encourage early ambulation Time spent in the patient's overall evaluation,decision-making process, review of diagnostic data, adjustment of management, discussion with other providers, nursing nursing and ancillary staff involved in patient's care documentation, 36 Minutes Charges/Coding Visit Charges Inpatient E&M: 74789 Subs Hosp L2
[2024-12-31] MEDS: Potassium Chloride Oral Tablet 20 MEQ 40 MEQ PO (10:20)
[2024-12-31] MEDS: Magnesium Chloride 64 MG Delay Rel.Tablet 128 MG PO ×2 (10:24→23:25)
--- NOTE | 2024-12-31 11:14 | ADDICTION ---
Addendum entered by Nayely Jiang 12/31/24 11:28: Pt reported he has an appointment on Tuesday with a Doctor in [place] but could not remember his name. He reports he might seek treatment up there. We will discuss this further tomorrow when he is feeling a little better. Original Note: This flex o writer operator met with PT to conduct ASAM, MSE, AUDIT assessments and to plan for d/c. PT A+Ox4 and participated actively. All assessments completed. PT plans to f/u with individual counselor at [facility] for follow-up counseling services. PT did not indicate a need for transportation post d/c from [facility].
[2024-12-31 14:25] VITALS: BP 128/83; PULSE 90; RESP 16; TEMP 36.7; O2SAT 98
--- NOTE | 2024-12-31 15:58 | CHAPLAIN ---
Type of Pastoral Visit _x__ Initial Visit ___ Follow-up Visit ___ On-call Visit ___ General Patient Visit ___ Spiritual Assessment ___ Family Conference ___ Bereavement ___ Rapid Response ___ Code Blue ___ Other (describe below) Pastoral Care Referral From _x__ Patient ___ Family ___ Nurse ___ Physician ___ Gas Dispenser ___ Reamer Hand ___ Other (describe below) Sacrament/Intervention ___ Active listening ___ Anointing ___ Yazidi ___ Bereavement ___ Communion ___ Cari exploration ___ ___ Life review ___ Prayer ___ Reconciliation ___ Sacrament of Sick _x__ Supportive presence ___ Wedding ___ Other (describe below) Pastoral Comments this is a RAMP patient; patient's door was open and he was awake; this manufacturers service representative offered support and time to sit with pt if he so desired; pt is getting meds from his RN; pt is having difficulty staying awake; pt admits that he needs help and that I have got to do this or I will ; pt is willing for visit but cannot stay alert; offer to come back another time was accepted
[2024-12-31] MEDS: Potassium Chloride Oral Tablet 20 MEQ PO (17:57)
[2024-12-31 23:20] VITALS: BP 146/100; PULSE 101; RESP 20; TEMP 37; O2SAT 96
[2025-01-01] VITALS (7 sets, daily range): BP systolic 118–137; BP diastolic 80–90; PULSE 65–115; RESP 15–20; TEMP 36.4–37.2; O2SAT 93–98
[2025-01-01 05:05] LABS: Hematocrit 27.6 % (40-54); Hemoglobin 8.2 g/dL (13.0-16.5); Immature Granulocytes Count 0.030 X10^3/uL (0.0-0.0); Mean Corp Hgb Conc 29.7 g/dL (32-36); Mean Corpuscular Volume 73.2 fL (80-94); Mean Platelet Vol. 9.2 fl (6.2-12.0); NRBC Flagged by Analyzer 0 % (0-5); POSITIVE MORPHOLOGY YES; Platelet Count 237 K/mm3 (150-450); RBC Distribution Width CV 22.9 % (11.6-14.6); RBC Distribution Width SD 58.8 fl (35.1-43.9); Red Blood Count 3.77 M/mm3 (4.6-6.2); White Blood Count 5.9 K/mm3 (4.4-11.0)
[2025-01-01 05:26] LABS: Anion Gap 10 (5-15); BUN 19 mg/dL (4-19); BUN/Creat Ratio 30.4 RATIO (10-20); Calcium,Total 8.1 mg/dL (7.6-11.0); Carbon Dioxide 26.9 mmol/L (21.0-32.0); Chloride 99 mmol/L (98-108); Estimated Creatinine Clearance 156.11 ml/min (50-250); Glucose 105 mg/dL (70-99); Magnesium 1.5 mg/dL (1.5-2.2); Potassium 3.5 mmol/L (3.3-5.1)
--- NOTE | 2025-01-01 05:38 | NURSING ---
Patient asked to speak to nurse. This nurse entered room shortly after. Patient asleep. Not awakened. Chest rise present.
[2025-01-01 06:36] LABS: Differential Indicated SCAN CRITERIA MET
[2025-01-01 06:37] LABS: Anisocytosis 1+
[2025-01-01 06:38] LABS: Basophilic Stippling RARE; Polychromasia RARE
[2025-01-01 06:41] LABS: Schistocytes RARE
--- NOTE | 2025-01-01 07:33 | PN.HOSP_ITS ---
Reason for Visit Chief Complaint: Alcohol detox Subjective Subjective Patient seen and diagnostic testing done for hypomagnesemia replacement given Objective Data Objective Data Vital Signs: Vital Signs Temp Pulse Resp BP Pulse Ox O2 Del Method 99.0 F 97 16 122/84 H 93 Room Air 01/01/25 06:38 01/01/25 06:38 01/01/25 06:38 01/01/25 06:38 01/01/25 07:07 01/01/25 07:07 Oxygen Delivery Method Room Air Weight: 85.548 kg Body Mass Index (BMI) 27.0 Intake & Output: Intake and Output for Last 24 Hours 12/30/24 12/31/24 01/01/25 23:59 23:59 23:59 Intake Total 600 / 600 880 / 880 Balance 600 / 600 880 / 880 Lab / Micro Data 01/01/25 04:38 01/01/25 04:38 Labs: Laboratory Results - last 24 hr 01/01/25 04:38: WBC 5.9, RBC 3.77 L, Hgb 8.2 L, Hct 27.6 L, MCV 73.2 L, MCH 21.8 L, MCHC 29.7 L D, RDW Std Deviation 58.8 H, RDW Coeff of Mehran 22.9 H, Plt Count 237, MPV 9.2, Immature Gran % (Auto) 0.500, Neut % (Auto) 58.2, Lymph % (Auto) 27.3, [place] % (Auto) 9.0, Eos % (Auto) 3.6, Baso % (Auto) 1.4 H, Absolute Neuts (auto) 3.4, Absolute Lymphs (auto) 1.61, Nucleated RBC % 0, Plt Morphology Comment LARGE, Polychromasia RARE, Basophilic Stippling RARE, Anisocytosis 1+, Ovalocytes RARE, Schistocytes RARE, Sodium 136, Potassium 3.5, Chloride 99, Carbon Dioxide 26.9, Anion Gap 10, BUN 19, Creatinine 0.63 L, Estim Creat Clear Calc 156.11, Est GFR (MDRD) Non-Af 121, BUN/Creatinine Ratio 30.4 H, Glucose 105 H, Calcium 8.1, Phosphorus 3.5, Magnesium 1.5 Physical Exam Narrative GENERAL: cooperative HEENT: Atraumatic; normocephalic EYES; Anicteric, Normal Conjunctiva NECK; supple, normal thyroid, RESPIRATORY: Diminished to auscultation CARDIOVASCULAR: Regular S1 S2, GI: soft, normoactive bowel sounds, : No Renal angle tenderness; EXTREMITIES: No edema, no clubbing, MUSCULOSKELETAL: no muscle wasting NEURO: Awake; no lateralizing signs. SKIN: No Rash PSYCH; Flat affect Assessment & Plan Assessment/Plan (1) Desire for detoxification: PLAN: Plan Patient is a 44-year-old gentleman with history of chronic alcohol dependence presented with desire to undergo detox 1. Acute alcohol withdrawal - Patient has been admitted for treatment with phenobarb taper in addition to adjuvant medications including gabapentin, Bentyl, hydroxyzine and clonidine as needed for alcohol withdrawal symptoms. Patient was also placed on thiamine and folic acid. Consultation placed to 180 counseling services ? 01/01/2025; patient seen remains somewhat lethargic requesting to be discharged did encourage patient to stay 1 more day he has an appointment with an addiction medicine physician on 01/08/2025 in [place] 2. Hypokalemia -Corrected per protocol 3. History of gastric ulcer ? 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 Anemia ? Secondary to chronic blood loss anemia from gastric ulcer monitoring H&H and transfuse if patient becomes symptomatic or hemoglobin falls below 7 4. Bipolar disorder ? Did continue patient's home meds?prazosin Seroquel and Zoloft 6. History of polysubstance dependence including opiates ? Patient is on buprenorphine?naloxone as well as acamprosate (hold on admission) 7. Coronary artery disease ? With previous stent placement patient antiplatelet therapy on hold given recent gastric ulcer 8. Tobacco dependence ? Counseled on cessation, offered nicotine patch for tobacco cravings 9. DVT prophylaxis low risk encourage early ambulation 10. Hypomagnesemia ? Corrected per protocol Time spent in the patient's overall evaluation,decision-making process, review of diagnostic data, adjustment of management, discussion with other providers, nursing nursing and ancillary staff involved in patient's care documentation, 36 Minutes Charges/Coding Visit Charges Inpatient E&M: 90356 Subs Hosp L2
[2025-01-01] MEDS: Magnesium Chloride 64 MG Delay Rel.Tablet 128 MG PO ×2 (08:04→21:36)
[2025-01-01] MEDS: Potassium Chloride Oral Tablet 20 MEQ PO ×2 (08:05→17:01)
[2025-01-01] MEDS: Thiamine Hydrochloride 100 MG Tablet PO (08:05)
[2025-01-01] MEDS: hydrOXYzine PAM 25 MG Capsule 50 MG PO (08:08)
--- NOTE | 2025-01-01 14:46 | CHAPLAIN ---
Type of Pastoral Visit ___ Initial Visit _x__ Follow-up Visit ___ On-call Visit ___ General Patient Visit ___ Spiritual Assessment ___ Family Conference ___ Bereavement ___ Rapid Response ___ Code Blue ___ Other (describe below) Pastoral Care Referral From _x__ Patient ___ Family ___ Nurse ___ Physician ___ Maid Housekeeper ___ Carry Out Clerk ___ Other (describe below) Sacrament/Intervention _x__ Active listening ___ Anointing ___ Tenriism ___ Bereavement ___ Communion ___ Cari exploration ___ _x__ Life review ___ Prayer ___ Reconciliation ___ Sacrament of Sick _x__ Supportive presence ___ Wedding ___ Other (describe below) Pastoral Comments time given to sit with the patient; 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
[2025-01-02 01:35] VITALS: BP 107/70; PULSE 91; RESP 14; TEMP 36.4; O2SAT 94
[2025-01-02 05:12] VITALS: BP 118/80; PULSE 98; RESP 15; TEMP 37.1; O2SAT 94
[2025-01-02 05:13] LABS: Hematocrit 30.0 % (40-54); Hemoglobin 8.7 g/dL (13.0-16.5); Immature Granulocytes Count 0.030 X10^3/uL (0.0-0.0); Mean Corp Hgb Conc 29.0 g/dL (32-36); Mean Corpuscular Volume 75.9 fL (80-94); Mean Platelet Vol. 10.5 fl (6.2-12.0); NRBC Flagged by Analyzer 0 % (0-5); POSITIVE MORPHOLOGY YES; Platelet Count 208 K/mm3 (150-450); RBC Distribution Width CV 23.5 % (11.6-14.6); RBC Distribution Width SD 62.3 fl (35.1-43.9); Red Blood Count 3.95 M/mm3 (4.6-6.2); White Blood Count 6.6 K/mm3 (4.4-11.0)
[2025-01-02 05:21] LABS: Differential Indicated SCAN CRITERIA MET
[2025-01-02 05:44] LABS: Anion Gap 12 (5-15); BUN 16 mg/dL (4-19); BUN/Creat Ratio 29.7 RATIO (10-20); Calcium,Total 7.9 mg/dL (7.6-11.0); Carbon Dioxide 21.5 mmol/L (21.0-32.0); Chloride 98 mmol/L (98-108); Estimated Creatinine Clearance 178.81 ml/min (50-250); Glucose 95 mg/dL (70-99); Potassium 4.1 mmol/L (3.3-5.1)
[2025-01-02 06:47] LABS: Anisocytosis 2+; Differential Comment SCANNED
--- NOTE | 2025-01-02 06:54 | DS.PCM_ITS ---
Providers Date of Admission: 12/30/24 Date of Discharge: 01/02/25 Primary Care Physician: No Primary Care Phys Reason For Visit: ACUTE ALCOHOL WITHDRAWAL Diagnosis Discharge Diagnosis (1) Desire for detoxification: Status: Acute Plan Patient is a 44-year-old gentleman with history of chronic alcohol dependence presented with desire to undergo detox 1. Acute alcohol withdrawal - Patient has been admitted for treatment with phenobarb taper in addition to adjuvant medications including gabapentin, Bentyl, hydroxyzine and clonidine as needed for alcohol withdrawal symptoms. Patient was also placed on thiamine and folic acid. Consultation placed to 180 counseling services ? 01/01/2025; patient seen remains somewhat lethargic requesting to be discharged did encourage patient to stay 1 more day he has an appointment with an addiction medicine physician on 01/08/2025 in [place] 2. Hypokalemia -Corrected per protocol 3. History of gastric ulcer ? 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 Anemia ? Secondary to chronic blood loss anemia from gastric ulcer monitoring H&H and transfuse if patient becomes symptomatic or hemoglobin falls below 7 4. Bipolar disorder ? Did continue patient's home meds?prazosin Seroquel and Zoloft 6. History of polysubstance dependence including opiates ? Patient is on buprenorphine?naloxone as well as acamprosate (hold on admission) 7. Coronary artery disease ? With previous stent placement patient antiplatelet therapy on hold given recent gastric ulcer 8. Tobacco dependence ? Counseled on cessation, offered nicotine patch for tobacco cravings 9. DVT prophylaxis low risk encourage early ambulation 10. Hypomagnesemia ? Corrected per protocol Time spent in the patient's overall evaluation,decision-making process, review of diagnostic data, adjustment of management, discussion with other providers, nursing nursing and ancillary staff involved in patient's care documentation, 36 Minutes Medications at Discharge Home Medications acamprosate 333 mg tablet,delayed release 666 mg PO TID 12/30/24 acetaminophen 500 mg tablet 1,000 mg PO BID PRN 12/30/24 buprenorphine 8 mg-naloxone 2 mg sublingual film 1 ea sublingual BID 12/30/24 buspirone 15 mg tablet 15 mg PO TID 12/30/24 docusate sodium 100 mg capsule (Stool Softener) 100 mg PO BID 12/30/24 folic acid 1 mg tablet 1 mg PO DAILY 12/30/24 lansoprazole 15 mg capsule,delayed release (Acid Cable Placer (lansoprazole)) 15 mg PO DAILY 12/30/24 loratadine 10 mg tablet 10 mg PO DAILY PRN allergy symptoms 12/30/24 multivitamin 1 tab PO DAILY 12/30/24 omeprazole 40 mg capsule,delayed release 40 mg PO DAILY 12/30/24 pantoprazole 40 mg tablet,delayed release 40 mg PO BID 12/30/24 prazosin 5 mg capsule 10 mg PO QHS NIGHT TERRORS 12/30/24 quetiapine 50 mg tablet 150 mg PO QHS 12/30/24 sertraline 50 mg tablet 150 mg PO DAILY 12/30/24 magnesium chloride 64 mg (magnesium chloride) tablet,delayed release (Mag 64) 128 mg (2 x 64 mg) PO BID #60 tabs 01/02/25 potassium chloride 20 mEq tablet,extended release(part/cryst) 20 meq PO BIDCM #60 tabs 01/02/25 Weight / BMI Weight Weight: 85.548 kg Body Mass Index (BMI) 27.0 ABG / Lab / Microbiology Data 01/02/25 04:28 01/02/25 04:28 Laboratory: Laboratory Results - last 24 hr 01/02/25 04:28: WBC 6.6, RBC 3.95 L, Hgb 8.7 L, Hct 30.0 L, MCV 75.9 L, MCH 22.0 L, MCHC 29.0 L, RDW Std Deviation 62.3 H, RDW Coeff of Mehran 23.5 H, Plt Count 208, MPV 10.5, Immature Gran % (Auto) 0.500, Neut % (Auto) 55.4, Lymph % (Auto) 26.5, [place] % (Auto) 10.1 H, Eos % (Auto) 6.1 H, Baso % (Auto) 1.4 H, Absolute Neuts (auto) 3.6, Absolute Lymphs (auto) 1.74, Nucleated RBC % 0, Differential Comment SCANNED, Anisocytosis 2+, Sodium 132 L, Potassium 4.1, Chloride 98, Carbon Dioxide 21.5, Anion Gap 12, BUN 16, Creatinine 0.55 L, Estim Creat Clear Calc 178.81, Est GFR (MDRD) Non-Af 126, BUN/Creatinine Ratio 29.7 H, Glucose 95, Calcium 7.9 D/C Instructions Discharge Activity: Return to Normal Activity Call your doctor if you observe: Fever of 101 or Higher, Shortness of breath, Fainting spells and Chest pain DC O2, CPAP, BIPAP Needs Home O2 Discharge instructions: No Meaningful Use Info Meaningful Use Meaningful Use Diagnoses (Choose all that apply): None applicable Discharge Plan Admission Admit Date/Time: 12/30/24 13:52 Attending Provider: Jairo Bruno Primary Care Provider: Care Physician,No Primary Consulting Providers: [place] Discharge Orders/Prescriptions Prescriptions: New potassium chloride 20 mEq Tablet,Er Particles/Crystals 20 meq PO BIDCM Qty: 60 0RF magnesium chloride [Mag 64] 64 mg Tablet,Delayed Release (Dr/Ec) 128 mg PO BID Qty: 60 0RF Continued omeprazole 40 mg capsule,delayed release(DR/EC) 40 mg PO DAILY docusate sodium [Stool Softener] 100 mg capsule 100 mg PO BID folic acid 1 mg tablet 1 mg PO DAILY sertraline 50 mg tablet 150 mg PO DAILY prazosin 5 mg capsule 10 mg PO QHS pantoprazole 40 mg tablet,delayed release (DR/EC) 40 mg PO BID buprenorphine-naloxone 8-2 mg film 1 ea sublingual BID quetiapine 50 mg tablet 150 mg PO QHS acetaminophen 500 mg tablet 1,000 mg PO BID PRN acamprosate 333 mg tablet,delayed release (DR/EC) 666 mg PO TID loratadine 10 mg tablet 10 mg PO DAILY PRN (Reason: allergy symptoms) buspirone 15 mg tablet 15 mg PO TID multivitamin Tablet 1 tab PO DAILY lansoprazole [Acid Cable Placer (lansoprazole)] 15 mg capsule,delayed release(DR/EC) 15 mg PO DAILY Referrals / Follow Up: Care Physician,No Primary [Primary Care Provider, Medical] - 01/08/25 Referral Note: Follow-up with your addiction medicine provider in [place] Disposition Disposition (needs filled in before D/C Order can be placed): Home, Self Care Charges/Coding Visit Charges Inpatient E&M: 52058 Disch Hosp >30min
[2025-01-02 07:30] VITALS: BP 121/88; PULSE 102; RESP 18; TEMP 36.4; O2SAT 95
== END 2025-01-02 08:18 | disposition home or self-care (01) | DRG 775 ==
LOC: ED 14:00 → MS3 14:33
PROVIDERS: Admitting Provider Internal Medicine; Emergency Provider Emergency Medicine; Visit Provider Internal Medicine
DX: F10.239 Alcohol dependence with withdrawal, unspecified (principal); F31.9 Bipolar disorder, unspecified; D50.0 Iron deficiency anemia secondary to blood loss (chronic); F17.210 Nicotine dependence, cigarettes, uncomplicated; E83.42 Hypomagnesemia; E66.3 Overweight; I10 Essential (primary) hypertension; K25.9 Gastric ulcer, unspecified as acute or chronic, without hemorrhage or perforation; E87.6 Hypokalemia; I25.10 Atherosclerotic heart disease of native coronary artery without angina pectoris; F17.290 Nicotine dependence, other tobacco product, uncomplicated; Z79.899 Other long term (current) drug therapy; Y90.8 Blood alcohol level of 240 mg/100 ml or more; Z68.26 Body mass index [BMI] 26.0-26.9, adult
CPT/HCPCS: 36415; 80048; 80053; 80307; 81001; 82077; 83690; 83735; 84100; 85025; 97802; 99284; A4216; J2405